=== PATIENT | female | born 1940 | race Caucasian/White ===

== ENCOUNTER 2022-07-22 13:12 | Outpatient (OUT) | payer MEDICARE, SELFPAY ==
--- NOTE | 2022-07-22 13:38 | P.HP_ITS ---
Consult Note: HPI Data of Consult Patient: known to practice within the last 3 years Consult date: 07/22/22 Requesting Physician: CLAUDIO WRIGHT NP Primary Care Provider: Luis Rogers MD Consult Narrative Reason for consult: low back pain Narrative: She is here for f/u to RFA [facility] nerve 06/22/22. She had 50% relief of pain with increased function continued today. No new sensorimotor or bowel or bladder issues. lumbar RFA 04/15 with continued relief. We discussed going to chiropractor for eval and tx. She does not have narcan at home. Rx given. [place] refilled. cc:: CC: CLAUDIO WRIGHT NP Review of Systems ROS Status of ROS 10 or more systems reviewed and unremarkable except as noted in history and below Exam Constitutional: Common normals: no apparent distress, average body habitus, oriented x3, no limitations, healthy appearing, alert and well nourished General appearance: cooperative, comfortable and well developed Orientation/consciousness: Yes awake, Yes oriented to person, Yes oriented to p lace and Yes oriented to time Other: right facial droop and extrmity weakness from previous stroke. walks with walker HENMT: Common normals: normocephalic and head/scalp atraumatic Nose: external nose normal Mouth: oral and palatal mucosa normal Respiratory: Common normals: normal respiratory effort, no retractions and no use of accessory muscles Effort & inspection: able to speak in complete sentences Back & Pelvis: Lumbar spine/lower back: ROM limited, pain with ROM and other soft tissue findings (positive marge bilat) Extremity: Common normals: normal to inspection and normal capillary refill Other: muscle strength 3/5 right LE, left 4/5, intact sensation bilat LE Skin: Common normals: no rashes or lesions noted Assessment and Plan Assessment and Plan (1) Neuritis: (2) Lumbar spondylosis: Plan narcan rx norco refill see chiropractor
== END 2022-07-22 13:13 ==
PROVIDERS: PCP Family Medicine; Visit Provider Nurse Practitioner
DX: M79.2 Neuralgia and neuritis, unspecified (principal); M47.816 Spondylosis without myelopathy or radiculopathy, lumbar region
CPT/HCPCS: G0463

== ENCOUNTER 2022-08-09 09:33 | Outpatient (OUT) | payer MEDICARE, SELFPAY ==
--- NOTE | 2022-08-09 09:50 | MR_ITS ---
[address] [address] Patient Name: KARINA CORMIER MRN: [id number] date: 1940 Sex: F Assigned Patient Location: MRI Current Patient Location: [place] Accession/Order Number: [id number] Exam Date: 08/09/2022 10:00 Report Date: 08/10/2022 06:49 At the request of: GALINA PALMER Procedure: MR lumbar spine wo con EXAMINATION: MR lumbar spine wo con HISTORY: Other forms of scoliosis, lumbar region M41.86 ; chronic back and leg pain COMPARISON: XR L-spine 07/16/2022, CT abdomen pelvis 04/04/2022 TECHNIQUE: A variety of imaging planes and parameters were utilized for visualization of suspected pathology. FINDINGS: For the purposes of numbering, sagittal T2 image # 7 extends from the T9 vertebral body superiorly to the S2 level inferiorly. PARASPINAL AREA: Numerous small and large hepatic lesions favoring cysts. Numerous small renal lesions bilaterally favoring cysts. BONES: Marked right convex curvature lumbar spine, and grade 1 right lateral abdomen and listhesis of L3 on 4. CORD/CAUDA EQUINA: Normal caliber, contour, and signal intensity. DISC LEVELS: T10-11: Moderate central canal and bilateral foramen narrowing secondary to large posterior projecting disc protrusion and moderate disc height reduction. T11-12: Marked central canal and right foramen narrowing. Moderate left foramen narrowing. Large right paracentral disc extrusion filling the right paracentral region and foramen and extending cephalad three fourths of the vertebral body height. Moderate marked disc height reduction and moderate degenerative facet arthropathy. 12-L1: Mild central canal, marked right, moderate left foramen narrowing. Moderate diffuse disc bulging predominantly into the right foramen. Moderate-marked disc height reduction. Mild degenerative facet arthropathy, right greater than left. L1-L2: Moderate marked central canal and bilateral foramen narrowing. Marked diffuse disc bulging with moderate disc at reduction. Moderate degenerative facet arthropathy bilaterally. L2-L3: Moderate central canal and bilateral foramen narrowing. Moderate diffuse disc bulging and moderate disc height reduction. Moderate degenerative facet arthropathy bilaterally. L3-L4: Mild central canal and right foramen narrowing. Moderate left foramen narrowing. Moderate diffuse disc bulging and disc height reduction. Moderate degenerative facet arthropathy bilaterally. L4-L5: Moderate central canal, marked right foramen, moderate left foramen narrowing. Marked diffuse disc bulging eccentric to the right, and minimal grade 1 anterolisthesis of L4 on 5. Marked degenerative facet arthropathy. L5-S1: No significant central canal or right foramen narrowing. Mild-moderate left foramen narrowing. Complete loss of the disc space no significant disc bulging. Moderate degenerative facet arthropathy. IMPRESSION: 1. Multilevel marked degenerative disc disease and facet arthropathy of the visible lower thoracic and lumbar spine resulting in moderate to marked central canal and foramen narrowing. 2. Marked dextroscoliosis of lumbar spine. Marked dextroscoliosis of lumbar spine. Electronically authenticated by: KRANTHI CONNORS Date: 08/10/2022 06:49
== END 2022-08-09 09:34 ==
LOC: MRI 09:37
PROVIDERS: PCP Family Medicine; Visit Provider Family Medicine
DX: M41.86 Other forms of scoliosis, lumbar region (principal); M51.34 Other intervertebral disc degeneration, thoracic region; M51.36 Other intervertebral disc degeneration, lumbar region
CPT/HCPCS: 72148

== ENCOUNTER 2022-08-09 13:04 | Observation (INO) | payer MEDICARE, SELFPAY ==
[2022-08-09] VITALS (16 sets, daily range): BP systolic 126–172; BP diastolic 69–79; PULSE 67–81; RESP 14–28; TEMP 36.6; O2SAT 95–99; BMI 31.2; BMI 70.6
[2022-08-09 13:21] LABS: Glucometer 127 mg/dL (74-106)
--- NOTE | 2022-08-09 13:24 | ED.GENADUL1 ---
HPI - General Adult General Chief complaint: Syncope Stated complaint: WEAKNESS Time Seen by Provider: 08/09/22 13:24 Source: patient, family and other Source information: EMS Mode of arrival: ambulance History of Present Illness HPI narrative: Patient is an 82-year-old female who presents to the emergency department for the evaluation of dizziness that began at home just prior to arrival. Patient states she drove herself to this hospital several hours ago to have an MRI performed of her back that was ordered three weeks ago by her PCP due to chronic back pain and degenerative disc disease. She states she drove herself home after the MRI and was sitting at her computer when she felt abrupt onset of vertigo and sensation of spinning. She has had vertigo in the past. She is not sure if this feels similar to previous. She has no complaint of headache, no chest pain or shortness of breath. She denies any recent illness, upper respiratory symptoms. She has no peripheral paresthesias. She states she feels generally weak and states at home before EMS arrived, she thinks she may have passed out several times while sitting in the chair. Patient has a history of previous stroke several years ago, she has residual facial drooping and dysarthria from this, no new symptoms of facial droop or dysarthria today. Related Data Home Medications Medication Instructions Recorded Confirmed B complex with vitamin cap PO DAILY 07/26/22 F-dxpuvynsa-duco capsule Buderer compound cream topical DAILY 07/26/22 acetaminophen 500 mg tablet 1,000 mg PO BID pain 07/26/22 08/09/22 (Tylenol Extra Strength) aspirin 81 mg tablet,delayed 81 mg PO DAILY 07/26/22 08/09/22 release blue emu topical DAILY 07/26/22 calcium carb-vit D3-minerals 600 1 tab PO DAILY 07/26/22 08/09/22 mg calcium-400 unit tablet capsaicin 0.025 % topical patch 1 patch topical DAILY pain 07/26/22 08/09/22 (Salonpas-Hot) carica papaya 1 tab PO DAILY 07/26/22 08/09/22 citalopram 10 mg tablet 10 mg PO DAILY 07/26/22 08/09/22 cyclobenzaprine 5 mg tablet 5 mg PO BID 07/26/22 08/09/22 diclofenac sodium 75 mg 75 mg PO Q12H 07/26/22 08/09/22 tablet,delayed release fexofenadine 180 mg tablet 180 mg PO DAILY 07/26/22 08/09/22 (Benita Allergy) flaxseed oil 1,000 mg capsule 1,000 mg PO DAILY 07/26/22 08/09/22 glucosamine 750 le-jckauw-onz 2-C tab PO 07/26/22 30 mg-D3 1,000 unit-maida 1 mg tablet (Mnnaogmntjk-Bxpubvjsbnx-NVJ + vitD) hydrocodone 5 mg-acetaminophen 325 1 tab PO BID 07/26/22 08/09/22 mg tablet isosorbide mononitrate 30 mg 30 mg PO DAILY 07/26/22 08/09/22 tablet,extended release 24 hr levothyroxine 75 mcg capsule 75 mcg PO DAILY 07/26/22 08/09/22 liothyronine 25 mcg tablet 25 mcg PO DAILY 07/26/22 08/09/22 (Cytomel) melatonin 3 mg capsule 3 mg PO DAILY 07/26/22 08/09/22 metoprolol succinate 50 mg 50 mg PO BID 07/26/22 08/09/22 tablet,extended release 24 hr multivitamin 1 tab PO DAILY 07/26/22 08/09/22 nitroglycerin 0.4 mg sublingual 0.4 mg sublingual Q5M 07/26/22 08/09/22 tablet Allergies Allergy/AdvReac Type Severity Reaction Status Date / Time Penicillins Allergy Severe Hives Verified 08/09/22 13:15 pregabalin [From Lyrica] Allergy Severe Dizziness Verified 08/09/22 13:15 propoxyphene [From Darvon] Allergy Severe Nausea Verified 08/09/22 13:15 fluconazole [From Diflucan] AdvReac Intermediate Verified 08/09/22 13:15 quinine [From Quinamm] AdvReac Mild Headache Verified 08/09/22 13:15 codeine Allergy Intermediate Dizziness Uncoded 08/09/22 13:15 decongest multi-action AdvReac Mild Uncoded 08/09/22 13:15 Review of Systems ROS Constitutional Denies: fever or chills Ears, nose, mouth, and throat Denies: throat pain or nasal discharge Cardiovascular Denies: chest pain Respiratory Denies: shortness of breath or cough Gastrointestinal Reports: nausea; Denies: vomiting Genitourinary Denies: painful urination Musculoskeletal Reports: back pain Neurological Denies: headache PFSH PFSH Social History Previous occupational history: Retired, , lives at home Occupational History Previous occupational history: Retired, , lives at home Exam Constitutional Vital Signs - 24 hr 08/09/22 13:11 08/09/22 13:20 08/09/22 13:30 Temperature 98 F Pulse Rate 67 67 Pulse Rate [Monitor] 67 Respiratory Rate 14 15 22 Blood Pressure Blood Pressure [Left Arm] 143/69 H Pulse Oximetry 99 98 99 Oxygen Delivery Method Room Air 08/09/22 13:48 08/09/22 13:50 08/09/22 13:59 Temperature Pulse Rate 68 72 74 Pulse Rate [Monitor] Respiratory Rate 14 19 22 Blood Pressure Blood Pressure [Left Arm] Pulse Oximetry 97 98 Oxygen Delivery Method 08/09/22 14:00 Temperature Pulse Rate 69 Pulse Rate [Monitor] Respiratory Rate 17 Blood Pressure 126/69 H Blood Pressure [Left Arm] Pulse Oximetry 98 Oxygen Delivery Method Documenting provider has reviewed patient's vital signs: yes Common normals: no apparent distress General appearance: cooperative Orientation/consciousness: Yes awake Other: Patient is slow to answer questions and must be redirected several times but is able to answer questions appropriately when prompted, chronic right-sided facial drooping noted with minimal dysarthria from previous stroke HENWA General ear: other (Bilateral tympanic membranes are clear) Respiratory Common normals: normal respiratory effort Auscultation: clear to auscultation bilaterally Cardio Common normals: regular rate and regular rhythm GI Common normals: non-tender Palpation: soft Extremity Common normals: normal to inspection Neuro Other: Patient is awake and alert to baseline with chronic facial drooping, no new focal neuro deficits noted. Generally weak although after multiple prompts is able to lift her arms with normal dorsiflexion and plantarflexion of the feet Course Reevaluation(s) Reevaluation #1: Discussed admission with Dr. Rogers Time: 16:22 Vital Signs Vital signs: Vital Signs Temperature 98 F 08/09/22 13:11 Pulse Rate 67 08/09/22 13:11 Respiratory Rate 14 08/09/22 13:11 Blood Pressure 143/69 H 08/09/22 13:11 Pulse Oximetry 99 08/09/22 13:11 Oxygen Delivery Method Room Air 08/09/22 13:11 Temperature 98 F 08/09/22 13:11 Pulse Rate 69 08/09/22 14:00 Respiratory Rate 17 08/09/22 14:00 Blood Pressure 126/69 H 08/09/22 14:00 Pulse Oximetry 98 08/09/22 14:00 Oxygen Delivery Method Room Air 08/09/22 13:11 Medical Decision Making MDM Narrative Medical decision making narrative: Patient was treated with gentle IV fluids, Zofran, meclizine. The remainder of her lab studies show hyponatremia, ketones in her urine and otherwise stable labs. Chest x-ray, CT of the head with stroke protocol are unremarkable. Urine specimen with no evidence of urinary tract infection. Patient's thyroid-stimulating hormone is low, further evaluation per her PCP. She was admitted because of the history of syncope and dizziness, based on her age and generalized weakness we will admit to Dr. Rogers with telemetry on MedSurg for observation. Stable at this time. Medical Records Medical records reviewed: Yes I reviewed the patient's medical records Lab Data Lab results reviewed: Yes I reviewed the patient's lab results Labs: Lab Results 08/09/22 08/09/22 08/09/22 Range/Units 13:18 14:10 15:45 WBC 7.3 (4.0-11.0) 10^3/uL RBC 4.12 L (4.20-5.40) 10^6/uL Hgb 12.6 (12.0-16.0) g/dL Hct 37.8 (36.0-48.0) % MCV 91.7 (81.0-99.0) fL MCH 30.6 (26.7-34.0) pg MCHC 33.3 (29.9-35.2) g/dL RDW 12.9 (11.0-15.0) % Plt Count 276 (150-450) 10^3/uL MPV 9.2 L (9.5-13.5) fL Neut % (Auto) 81.5 H (43.0-75.0) % Lymph % (Auto) 8.7 L (20.5-60.0) % Meagher % (Auto) 8.8 (1.7-12.0) % Eos % (Auto) 0.4 L (0.9-7.0) % Baso % (Auto) 0.3 (0.2-2.0) % Neut # (Auto) 5.9 (1.4-6.5) 10^3/uL Lymph # (Auto) 0.6 L (1.2-3.8) 10^3/uL Meagher # (Auto) 0.6 (0.3-0.8) 10^3/uL Eos # (Auto) 0.0 (0.0-0.7) 10^3/uL Baso # (Auto) 0.0 (0.0-0.1) 10^3/uL Abs Immat Gran (auto) 0.02 (0.00-0.03) 10^3/uL Imm/Tot Granulo (auto) 0.3 (0.0-0.5) % Sodium 132 L (136-145) mmol/L Potassium 4.1 (3.5-5.1) mmol/L Chloride 97 L (98-107) mmol/L Carbon Dioxide 26.3 (21.0-32.0) mmol/L Anion Gap 12.8 BUN 27.0 H (7.0-18.0) mg/dL Creatinine 1.16 H (0.55-1.02) mg/dL Est GFR ( Amer) 54 L (>=60) Est GFR (Non-Af Amer) 45 L (>=60) BUN/Creatinine Ratio 23.3 Glucose 134 H (74-106) mg/dL Lactate 1.9 (0.4-2.0) mmol/L Calcium 9.5 (8.5-10.1) mg/dL Total Bilirubin 0.5 (0.2-1.0) mg/dL AST 42 H (15-37) U/L ALT 48 (14-59) U/L Alkaline Phosphatase 76 (46-116) U/L Troponin I High Sens 5.8 (4.0-51.3) pg/mL Total Protein 6.9 (6.4-8.2) g/dL Albumin 3.6 (3.4-5.0) g/dL Globulin 3.3 g/dL Albumin/Globulin Ratio 1.1 TSH 0.031 L (0.358-3.740) uIU/mL Urine Color Lt. yellow (YELLOW) Urine Clarity Clear (CLEAR) Urine pH 8.0 (5.0-9.0) Ur Specific [place] 1.015 (1.005-1.025) Urine Protein Negative (NEG/TRACE) mg/dL Urine Glucose (UA) Negative (NEGATIVE) mg/dL Urine Ketones 15 A (NEGATIVE) mg/dL Urine Occult Blood Trace-i (NEGATIVE) Urine Nitrite Negative (NEGATIVE) Urine Bilirubin Negative (NEGATIVE) Urine Urobilinogen 0.2 (0.2-1.0) EU/dL Ur Leukocyte Esterase Negative (NEGATIVE) Urine RBC (0-2) #/HPF Urine WBC (NONE SEEN) #/HPF Ur Squamous Epith Cells (NONE/RARE) #/LPF Urine Crystals (None Seen) #/HPF Urine Bacteria (NONE SEEN) #/HPF Urine Casts (NONE SEEN) #/LPF Urine Mucus (NONE SEEN) Ur Culture Indicated? POC Glucose 127 H (74-106) mg/dL 08/09/22 Range/Units 16:04 WBC (4.0-11.0) 10^3/uL RBC (4.20-5.40) 10^6/uL Hgb (12.0-16.0) g/dL Hct (36.0-48.0) % MCV (81.0-99.0) fL MCH (26.7-34.0) pg MCHC (29.9-35.2) g/dL RDW (11.0-15.0) % Plt Count (150-450) 10^3/uL MPV (9.5-13.5) fL Neut % (Auto) (43.0-75.0) % Lymph % (Auto) (20.5-60.0) % Meagher % (Auto) (1.7-12.0) % Eos % (Auto) (0.9-7.0) % Baso % (Auto) (0.2-2.0) % Neut # (Auto) (1.4-6.5) 10^3/uL Lymph # (Auto) (1.2-3.8) 10^3/uL Meagher # (Auto) (0.3-0.8) 10^3/uL Eos # (Auto) (0.0-0.7) 10^3/uL Baso # (Auto) (0.0-0.1) 10^3/uL Abs Immat Gran (auto) (0.00-0.03) 10^3/uL Imm/Tot Granulo (auto) (0.0-0.5) % Sodium (136-145) mmol/L Potassium (3.5-5.1) mmol/L Chloride (98-107) mmol/L Carbon Dioxide (21.0-32.0) mmol/L Anion Gap BUN (7.0-18.0) mg/dL Creatinine (0.55-1.02) mg/dL Est GFR ( Amer) (>=60) Est GFR (Non-Af Amer) (>=60) BUN/Creatinine Ratio Glucose (74-106) mg/dL Lactate (0.4-2.0) mmol/L Calcium (8.5-10.1) mg/dL Total Bilirubin (0.2-1.0) mg/dL AST (15-37) U/L ALT (14-59) U/L Alkaline Phosphatase (46-116) U/L Troponin I High Sens (4.0-51.3) pg/mL Total Protein (6.4-8.2) g/dL Albumin (3.4-5.0) g/dL Globulin g/dL Albumin/Globulin Ratio TSH (0.358-3.740) uIU/mL Urine Color (YELLOW) Urine Clarity (CLEAR) Urine pH (5.0-9.0) Ur Specific [place] (1.005-1.025) Urine Protein (NEG/TRACE) mg/dL Urine Glucose (UA) (NEGATIVE) mg/dL Urine Ketones (NEGATIVE) mg/dL Urine Occult Blood (NEGATIVE) Urine Nitrite (NEGATIVE) Urine Bilirubin (NEGATIVE) Urine Urobilinogen (0.2-1.0) EU/dL Ur Leukocyte Esterase (NEGATIVE) Urine RBC 5-10 A (0-2) #/HPF Urine WBC None seen (NONE SEEN) #/HPF Ur Squamous Epith Cells Few A (NONE/RARE) #/LPF Urine Crystals None seen (None Seen) #/HPF Urine Bacteria None seen (NONE SEEN) #/HPF Urine Casts None seen (NONE SEEN) #/LPF Urine Mucus None seen (NONE SEEN) Ur Culture Indicated? No POC Glucose (74-106) mg/dL Imaging Data Chest x-ray: Attestation: I have reviewed the pertinent imaging results. Radiologist's impression: Procedure: XR chest 1V EXAMINATION: XR chest 1V HISTORY: Dizziness COMPARISON: No relevant comparison available. TECHNIQUE: AP portable FINDINGS: LUNGS: No significant pulmonary parenchymal abnormalities. VASCULATURE: No increased pulmonary vasculature. PLEURA: No pneumothorax, effusion, or pleural thickening. CARDIAC: No cardiomegaly or cardiac silhouette abnormality. MEDIASTINUM: No visible mass or adenopathy. Aortic atherosclerosis BONES: No fracture or visible bone lesion. OTHER: Negative. IMPRESSION: No acute cardiopulmonary process Electronically authenticated by: HERMES MENDOZA Date: 08/09/2022 14:22 CT scan - head: Attestation: I have reviewed the pertinent imaging results. Radiologist's impression: Procedure: CT stroke head/brain wo con EXAMINATION: CT stroke head/brain wo con HISTORY: Dizziness COMPARISON: No relevant comparison available. TECHNIQUE: Axial CT images were obtained without IV contrast. Dose reduction techniques were achieved by using automated exposure control and/or adjustment of mA and/or kV according to patient size and/or use of iterative reconstruction technique. FINDINGS: BRAIN: Mild generalized edema. Mild white matter hypoattenuation, chronic small vessel ischemic changes are favored. No acute parenchymal hemorrhage mass or attenuation abnormality CSF SPACES: No hydrocephalus, subarachnoid hemorrhage, or mass. Appropriate for age. SKULL: No fracture, mass, or other significant visible lesion. SINUSES: No significant mucosal thickening or fluid on the limited views. ORBITS: No appreciable abnormality on the limited views. OTHER: Negative IMPRESSION: Mild atrophy and white matter disease. Chronic changes are favored. Electronically authenticated by: HERMES MENDOZA Date: 08/09/2022 14:18 ECG Data Attestation: I personally reviewed and interpreted this ECG as follows: (Normal sinus rhythm at a rate of [address] elevation or ectopy. EKG reviewed by attending physician) Discharge Plan Discharge Chief Complaint: Syncope Clinical Impression: Dizziness, Generalized weakness, Syncope, Acute hyponatremia Patient Disposition: Admitted as Observation Time of Disposition Decision: 16:24 Condition: Fair
--- NOTE | 2022-08-09 13:25 | ECG_ITS ---
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
--- NOTE | 2022-08-09 13:50 | CT_ITS ---
[address] [address] Patient Name: KARINA CORMIER MRN: [id number] date: 1940 Sex: F Assigned Patient Location: ED.MAIN Current Patient Location: Accession/Order Number: [id number] Exam Date: 08/09/2022 13:40 Report Date: 08/09/2022 14:18 At the request of: DANAE BECKWITH Procedure: CT stroke head/brain wo con EXAMINATION: CT stroke head/brain wo con HISTORY: Dizziness COMPARISON: No relevant comparison available. TECHNIQUE: Axial CT images were obtained without IV contrast. Dose reduction techniques were achieved by using automated exposure control and/or adjustment of mA and/or kV according to patient size and/or use of iterative reconstruction technique. FINDINGS: BRAIN: Mild generalized edema. Mild white matter hypoattenuation, chronic small vessel ischemic changes are favored. No acute parenchymal hemorrhage mass or attenuation abnormality CSF SPACES: No hydrocephalus, subarachnoid hemorrhage, or mass. Appropriate for age. SKULL: No fracture, mass, or other significant visible lesion. SINUSES: No significant mucosal thickening or fluid on the limited views. ORBITS: No appreciable abnormality on the limited views. OTHER: Negative IMPRESSION: Mild atrophy and white matter disease. Chronic changes are favored. Electronically authenticated by: HERMES MENDOZA Date: 08/09/2022 14:18
--- NOTE | 2022-08-09 13:50 | XR_ITS ---
The [address] [address] Patient Name: KARINA CORMIER MRN: [id number] date: 1940 Sex: F Assigned Patient Location: ED.MAIN Current Patient Location: ER Accession/Order Number: [id number] Exam Date: 08/09/2022 13:40 Report Date: 08/09/2022 14:22 At the request of: DANAE BECKWITH Procedure: XR chest 1V EXAMINATION: XR chest 1V HISTORY: Dizziness COMPARISON: No relevant comparison available. TECHNIQUE: AP portable FINDINGS: LUNGS: No significant pulmonary parenchymal abnormalities. VASCULATURE: No increased pulmonary vasculature. PLEURA: No pneumothorax, effusion, or pleural thickening. CARDIAC: No cardiomegaly or cardiac silhouette abnormality. MEDIASTINUM: No visible mass or adenopathy. Aortic atherosclerosis BONES: No fracture or visible bone lesion. OTHER: Negative. IMPRESSION: No acute cardiopulmonary process Electronically authenticated by: HERMES MENDOZA Date: 08/09/2022 14:22
[2022-08-09] MEDS: ONDANSETRON PF 4 MG/2 ML VIAL IV (13:56)
[2022-08-09] MEDS: MECLIZINE HCL 12.5 MG TABLET 25 MG PO (13:56)
[2022-08-09 14:22] LABS: Basophils Percent Auto 0.3 % (0.2-2.0); Eosinophils Percent Auto 0.4 % (0.9-7.0); Hematocrit 37.8 % (36.0-48.0); Hemoglobin 12.6 g/dL (12.0-16.0); Immature Granulocytes Abs Auto 0.02 10^3/uL (0.00-0.03); Immature Granulocytes Pct Auto 0.3 % (0.0-0.5); Lymphocytes Absolute Auto 0.6 10^3/uL (1.2-3.8); Lymphocytes Percent Auto 8.7 % (20.5-60.0); Mean Corpuscular HGB Conc 33.3 g/dL (29.9-35.2); Mean Corpuscular Hemoglobin 30.6 pg (26.7-34.0); Mean Corpuscular Volume 91.7 fL (81.0-99.0); Mean Platelet Volume 9.2 fL (9.5-13.5); Monocytes Absolute Auto 0.6 10^3/uL (0.3-0.8); Monocytes Percent Auto 8.8 % (1.7-12.0); Neutrophils Absolute Auto 5.9 10^3/uL (1.4-6.5); Neutrophils Percent Auto 81.5 % (43.0-75.0); Platelet Count 276 10^3/uL (150-450); Red Blood Count 4.12 10^6/uL (4.20-5.40); Red Cell Distribution Width 12.9 % (11.0-15.0); White Blood Count 7.3 10^3/uL (4.0-11.0)
[2022-08-09 14:55] LABS: Alanine Aminotransferase 48 U/L (14-59); Anion Gap 12.8; Aspartate Amino Transferase 42 U/L (15-37); BUN Creatinine Ratio 23.3; Bilirubin Total 0.5 mg/dL (0.2-1.0); Calcium 9.5 mg/dL (8.5-10.1); Carbon Dioxide 26.3 mmol/L (21.0-32.0); Chloride 97 mmol/L (98-107); Estimated GFR (African America 54 (>=60); Estimated GFR (Non-African Ame 45 (>=60); Glucose 134 mg/dL (74-106); Potassium 4.1 mmol/L (3.5-5.1); Sodium 132 mmol/L (136-145)
[2022-08-09 14:56] LABS: Albumin Globulin Ratio 1.1; Albumin Level 3.6 g/dL (3.4-5.0); Alkaline Phosphatase 76 U/L (46-116); Globulin 3.3 g/dL; Thyroid Stimulating Hormone 0.031 uIU/mL (0.358-3.740); Total Protein 6.9 g/dL (6.4-8.2); Troponin I High Sensitivity 5.8 pg/mL (4.0-51.3)
[2022-08-09 15:21] LABS: Lactate/Lactic Acid 1.9 mmol/L (0.4-2.0)
[2022-08-09] MEDS: 0.9 % SODIUM CHLORIDE 1,000 ML 500 ML IV (15:40)
[2022-08-09 16:04] LABS: Bilirubin Urine NEGATIVE (NEGATIVE); Blood Urine TRACE-I (NEGATIVE); Clarity Urine CLEAR (CLEAR); Color Urine LT. YELLOW (YELLOW); Glucose Urine UA NEGATIVE (NEGATIVE); Ketones Urine 15 mg/dL (NEGATIVE); Leukocyte Esterase Urine NEGATIVE (NEGATIVE); Nitrite Urine NEGATIVE (NEGATIVE); Protein Urine NEGATIVE (NEG/TRACE); Specific Gravity Urine 1.015 (1.005-1.025); Urine Microscopic Indicated YES; Urobilinogen Urine 0.2 EU/dL (0.2-1.0)
[2022-08-09 16:09] LABS: Bacteria Urine NONE SEEN #/HPF (NONE SEEN); Cast Seen? NONE SEEN #/LPF (NONE SEEN); Crystals Seen? None Seen #/HPF (None Seen); Mucus Urine NONE SEEN (NONE SEEN); Squamous Epithelial Cell Urine FEW #/LPF (NONE/RARE); Urine Culture Indicated NO; WBC Urine NONE SEEN #/HPF (NONE SEEN)
[2022-08-09] MEDS: 0.9 % SODIUM CHLORIDE 1,000 ML 125 ML IV (22:22)
[2022-08-09] MEDS: CIPROFLOXACIN IN 5 % DEXTROSE 400 MG/200 ML PIGGYBACK 200 MG IV (22:26)
[2022-08-09] MEDS: HYDROCODONE/ACETAMINOPHEN 5-325 MG TABLET 1 TAB PO (22:31)
[2022-08-09] MEDS: ACETAMINOPHEN 500 MG TABLET 1000 MG PO (22:31)
[2022-08-09] MEDS: CYCLOBENZAPRINE HCL 10 MG TABLET 5 MG PO (22:33)
[2022-08-09] MEDS: METOPROLOL SUCCINATE 50 MG TAB.ER.24H PO (22:33)
[2022-08-09] MEDS: DICLOFENAC SODIUM 25 MG TABLET.DR 75 MG PO (22:34)
[2022-08-10] VITALS (8 sets, daily range): BP systolic 151; BP diastolic 77; PULSE 68–79; RESP 20; TEMP 36.1; O2SAT 96
[2022-08-10 04:59] LABS: Basophils Percent Auto 0.5 % (0.2-2.0); Eosinophils Absolute Auto 0.1 10^3/uL (0.0-0.7); Eosinophils Percent Auto 1.4 % (0.9-7.0); Hematocrit 33.5 % (36.0-48.0); Hemoglobin 11.1 g/dL (12.0-16.0); Immature Granulocytes Abs Auto 0.01 10^3/uL (0.00-0.03); Immature Granulocytes Pct Auto 0.2 % (0.0-0.5); Lymphocytes Absolute Auto 0.7 10^3/uL (1.2-3.8); Lymphocytes Percent Auto 17.1 % (20.5-60.0); Mean Corpuscular HGB Conc 33.1 g/dL (29.9-35.2); Mean Corpuscular Hemoglobin 30.7 pg (26.7-34.0); Mean Corpuscular Volume 92.8 fL (81.0-99.0); Mean Platelet Volume 8.9 fL (9.5-13.5); Monocytes Absolute Auto 0.5 10^3/uL (0.3-0.8); Neutrophils Percent Auto 68.8 % (43.0-75.0); Platelet Count 240 10^3/uL (150-450); Red Blood Count 3.61 10^6/uL (4.20-5.40); White Blood Count 4.3 10^3/uL (4.0-11.0)
[2022-08-10 05:25] LABS: Alanine Aminotransferase 37 U/L (14-59); Albumin Level 2.9 g/dL (3.4-5.0); Alkaline Phosphatase 62 U/L (46-116); Anion Gap 10.8; Aspartate Amino Transferase 24 U/L (15-37); Bilirubin Total 0.4 mg/dL (0.2-1.0); Calcium 8.6 mg/dL (8.5-10.1); Carbon Dioxide 26.9 mmol/L (21.0-32.0); Chloride 101 mmol/L (98-107); Estimated GFR (African America 57 (>=60); Estimated GFR (Non-African Ame 47 (>=60); Globulin 2.9 g/dL; Glucose 93 mg/dL (74-106); Magnesium 1.9 mg/dL (1.8-2.4); Potassium 3.7 mmol/L (3.5-5.1); Sodium 135 mmol/L (136-145); Total Protein 5.8 g/dL (6.4-8.2)
[2022-08-10] MEDS: 0.9 % SODIUM CHLORIDE 1,000 ML 125 ML IV (06:53)
--- NOTE | 2022-08-10 07:04 | CA_ITS ---
Patient: KARINA CORMIER Exam Date: 08/10/2022 : 1940 Gender:F Ordering : DR Luis Rogers . Admission #: [id number] Family : Order #: [id number] CLICK HERE TO VIEW EXAM ECHOCARDIOGRAM REPORT PROCEDURE: CA ECHO DOPPLER COMPLETE INDICATIONS: TIA with vertigo COMPARISON: None. DESCRIPTION: COMPLETE ECHOCARDIOGRAM Real-time transthoracic echocardiography with 2D, M-mode, spectral and color flow Doppler performed. QUALITY: Technical quality was good. LEFT VENTRICLE: Normal chamber size. Borderline left ventricular hypertrophy. LV EF: Global left ventricular systolic function is normal. Calculated left ventricular ejection fraction is 67%. DIASTOLIC: Diastolic function is indeterminate. ATRIAL SEPTUM: Inadequately seen. LEFT ATRIUM: Severe dilatation. RIGHT ATRIUM: Mild dilatation. RIGHT VENTRICLE: Normal chamber size. Normal right ventricular systolic function. TRICUSPID VALVE: Normal mobility and thickness. Mild regurgitation. Mild pulmonary hypertension. RVSP 37mmHg MITRAL VALVE: Normal mobility and thickness. No evidence of mitral valve stenosis. There is no mitral annular calcification. Mild to moderate mitral regurgitation. AORTIC VALVE: Normal trileaflet appearance. Thickened aortic valve. Normal leaflet mobility. No evidence of aortic valve stenosis. No aortic regurgitation. AORTIC ROOT: Normal diameter and appearance. PULMONIC VALVE: Normal thickness and mobility. No stenosis. Trivial regurgitation. PERICARDIUM: No evidence of pericardial effusion. IVC: Collapses with inspirations. Moderately dilated measuring 2.5cm. CONCLUSION: Global left ventricular systolic function is normal; visually estimated ejection fraction is 60 to 65%. Diastolic function is indeterminate. Biatrial enlargement. The right ventricle is normal in size and systolic function. Mild tricuspid regurgitation. Mildly elevated right-sided pressures. Mild to moderate mitral regurgitation. Adult Echocardiography Procedure Report Left Ventricle LVEDD (3.7 - 5.6 cm): 4.32 cm LVESD (2.2 - 4.0 cm): 2.81 cm LVIVS thickness (0.6 - 1.2 cm): 1.15 cm LVPW thickness (0.5 - 1.0 cm): 9.75 mm LVOT Max Gradient: 4 mm[Hg] Peak Velocity (LVOT): 96.30 cm/s Mean Velocity (LVOT): 63.80 cm/s LVOT Diameter 1.90 cm Left Ventricular Ejection Fraction: 64.50 % Left Atrium LA Volume Index (2D A2C): 68980 mm3 Left Atrium Systolic Dimension: 2.90 cm Mitral Valve MV E to A Ratio: 0.80 Mitral Valve A-Wave Peak Velocity: 110.00 cm/s Mitral Valve E-Wave Peak Velocity: 92.30 cm/s Right Ventricle Aorta AO Root Diam: 3.10 cm Aortic Valve AoV Area (Peak Duncan): 2.19 cm2 AoV Area (VTI): 2.24 cm2 Peak Velocity(Antegrade Flow): 125.00 cm/s Peak Gradient(Antegrade Flow): 6 mm[Hg] Mean Velocity(Antegrade Flow): 86.00 cm/s Mean Gradient(Antegrade Flow): 3 mm[Hg] Velocity Time Integral: 29.50 cm Tricuspid Valve Peak Velocity (Regurgitant Flow): 270.00 cm/s Peak Velocity: 39.50 cm/s Pulmonic Valve Peak Velocity: 99.10 cm/s, 88.20 cm/s Peak Gradient: 4 mm[Hg] Right Atrium Dictated by: Raz Luis M.D. on 08/11/2022 at 13:09 Approved by: Raz Luis M.D. on 08/11/2022 at 13:13
--- NOTE | 2022-08-10 07:04 | CT_ITS ---
[address] [address] Patient Name: KARINA CORMIER MRN: [id number] date: 1940 Sex: F Assigned Patient Location: [place] Current Patient Location: [place] Accession/Order Number: [id number] Exam Date: 08/10/2022 08:32 Report Date: 08/10/2022 09:48 At the request of: GALINA PALMER Procedure: CT angio neck EXAM: CT angio neck, CT angio head COMPARISON: None. CLINICAL HISTORY: Transient ischemic event. Syncope TECHNIQUE: Following the bolus administration of 98 mL Omnipaque 350 is IV contrast, thin helical axial images using a dual-energy acquisition was obtained from the aortic arch to the vertex. Automated dose reduction was utilized. Thin multiplanar reconstructions of the brain were obtained in all three planes. 2-D and 3-D reformations were created on an independent workstation. FINDINGS: Aortic arch and carotids: Three-vessel aortic arch without significant great vessel stenosis The right vertebral artery dominant. The common carotid arteries are patent. There is calcified plaque at the internal carotid arteries resulting in 50% stenosis. The distal internal carotid arteries are unremarkable. Intracranial circulation: The vertebral basilar artery system is developmentally diminutive. There are prominent bilateral posterior communicating arteries. There is mild plaque of the cavernous carotid arteries. The anterior, middle, and posterior cerebral arteries are patent. There is no high-grade stenosis nor large vessel occlusion. Postcontrast, there is no abnormal intracranial enhancement. There is moderate sphenoid sinus mucosal disease. There is no mucosal abnormality. There is no concerning adenopathy. Tiny right thyroid nodule. Moderate spondylitic changes of the cervical spine IMPRESSION: THREE-VESSEL ARCH WITHOUT SIGNIFICANT GREAT VESSEL STENOSIS. DOMINANT RIGHT VERTEBRAL ARTERY. DIMINUTIVE VERTEBROBASILAR SYSTEM. CALCIFIED PLAQUE CAROTID BIFURCATIONS RESULTING IN 50% INTERNAL CAROTID ARTERY STENOSES. NO SIGNIFICANT INTRACRANIAL STENOSIS NOR LARGE VESSEL OCCLUSION. Any above stenosis measurements were obtained using NASCET criteria. Electronically authenticated by: CORBIN BECKWITH Date: 08/10/2022 09:48
--- NOTE | 2022-08-10 07:04 | CA_ITS ---
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1940 Requested By: GALINA PALMER Order Number: [id number] Reading MD: STEVE WAY Interpretive Statements Predominant rhythm is sinus with average rate of 76 bpm Tachycardia - max rate of 164 bpm - 12 episodes of PSVT w/ longest duration of 33 beats - longest episode of 29min 19sec with rate of 109-119 bpm Bradycardia - min rate of 54 bpm - longest episode of 18min 49sec with rate of 54-57 bpm Ventricular ectopy - 275 total (<1%) - 269 PVC - 6 couplets Patient triggered events: 1 - associated with fatigue - associated with NSR Impression: Predominant rhythm is sinus with average rate of 76 bpm Fastest rate of 164 bpm and slowest rate of 54 bpm 269 PVC, 6 couplets No pauses or blocks No atrial fib/flutter Electronically Signed On 09-22-2022 21:26:[address]
--- NOTE | 2022-08-10 07:04 | CT_ITS ---
[address] [address] Patient Name: KARINA CORMIER MRN: [id number] date: 1940 Sex: F Assigned Patient Location: MS Current Patient Location: [place] Accession/Order Number: [id number] Exam Date: 08/10/2022 08:32 Report Date: 08/10/2022 09:48 At the request of: GALINA PALMER Procedure: CT angio head EXAM: CT angio neck, CT angio head COMPARISON: None. CLINICAL HISTORY: Transient ischemic event. Syncope TECHNIQUE: Following the bolus administration of 98 mL Omnipaque 350 is IV contrast, thin helical axial images using a dual-energy acquisition was obtained from the aortic arch to the vertex. Automated dose reduction was utilized. Thin multiplanar reconstructions of the brain were obtained in all three planes. 2-D and 3-D reformations were created on an independent workstation. FINDINGS: Aortic arch and carotids: Three-vessel aortic arch without significant great vessel stenosis The right vertebral artery dominant. The common carotid arteries are patent. There is calcified plaque at the internal carotid arteries resulting in 50% stenosis. The distal internal carotid arteries are unremarkable. Intracranial circulation: The vertebral basilar artery system is developmentally diminutive. There are prominent bilateral posterior communicating arteries. There is mild plaque of the cavernous carotid arteries. The anterior, middle, and posterior cerebral arteries are patent. There is no high-grade stenosis nor large vessel occlusion. Postcontrast, there is no abnormal intracranial enhancement. There is moderate sphenoid sinus mucosal disease. There is no mucosal abnormality. There is no concerning adenopathy. Tiny right thyroid nodule. Moderate spondylitic changes of the cervical spine IMPRESSION: THREE-VESSEL ARCH WITHOUT SIGNIFICANT GREAT VESSEL STENOSIS. DOMINANT RIGHT VERTEBRAL ARTERY. DIMINUTIVE VERTEBROBASILAR SYSTEM. CALCIFIED PLAQUE CAROTID BIFURCATIONS RESULTING IN 50% INTERNAL CAROTID ARTERY STENOSES. NO SIGNIFICANT INTRACRANIAL STENOSIS NOR LARGE VESSEL OCCLUSION. Any above stenosis measurements were obtained using NASCET criteria. Electronically authenticated by: CORBIN BECKWITH Date: 08/10/2022 09:48
--- NOTE | 2022-08-10 07:12 | P.HP_ITS ---
H&P: HPI History of Present Illness Chief complaint: WEAKNESS, DIZZINESS, SYNCOPY Narrative: Patient with acute onset of vertigo, she has had little episodes since that in the past but not as severe as previous, patient presented to emergency room due to the severity of the symptoms. No focal weakness but she did states she has some difficulty with her speech at the time of the incident. Review of Systems ROS Status of ROS 10 or more systems reviewed and unremarkable except as noted in history and below PFSH PFSH Social History Previous occupational history: Retired, , lives at home Meds Home Medications and Allergies Home Medications Medication Instructions Recorded Confirmed Type B complex with vitamin 1 cap PO DAILY 07/26/22 08/09/22 History T-jhqteeqnj-jehm capsule Buderer compound cream topical DAILY 07/26/22 History acetaminophen 500 mg tablet 1,000 mg PO BID pain 07/26/22 08/09/22 History (Tylenol Extra Strength) aspirin 81 mg tablet,delayed 81 mg PO DAILY 07/26/22 08/09/22 History release blue emu 1 g topical DAILY 07/26/22 08/09/22 History calcium carb-vit D3-minerals 600 1 tab PO DAILY 07/26/22 08/09/22 History mg calcium-400 unit tablet capsaicin 0.025 % topical patch 1 patch topical DAILY pain 07/26/22 08/09/22 History (Salonpas-Hot) carica papaya 1 tab PO DAILY 07/26/22 08/09/22 History citalopram 10 mg tablet 10 mg PO DAILY 07/26/22 08/09/22 History cyclobenzaprine 5 mg tablet 5 mg PO BEDTIME PRN muscle spasm 07/26/22 08/09/22 History diclofenac sodium 75 mg 75 mg PO Q12H 07/26/22 08/09/22 History tablet,delayed release fexofenadine 180 mg tablet 180 mg PO DAILY 07/26/22 08/09/22 History (Benita Allergy) flaxseed oil 1,000 mg capsule 1,000 mg PO DAILY 07/26/22 08/09/22 History glucosamine 750 ex-hgtsrm-uxq 2-C 1 tab PO DAILY 07/26/22 08/09/22 History 30 mg-D3 1,000 unit-maida 1 mg tablet (Bqrkcqrxrtw-Dobtxmsvgui-TTS + vitD) hydrocodone 5 mg-acetaminophen 325 1 tab PO BID PRN pain 07/26/22 08/09/22 History mg tablet isosorbide mononitrate 30 mg 30 mg PO DAILY 07/26/22 08/09/22 History tablet,extended release 24 hr levothyroxine 75 mcg capsule 75 mcg PO DAILY 07/26/22 08/09/22 History liothyronine 25 mcg tablet 25 mcg PO DAILY 07/26/22 08/09/22 History (Cytomel) melatonin 3 mg capsule 3 mg PO DAILY 07/26/22 08/09/22 History metoprolol succinate 50 mg 50 mg PO BID 07/26/22 08/09/22 History tablet,extended release 24 hr multivitamin 1 tab PO DAILY 07/26/22 08/09/22 History nitroglycerin 0.4 mg sublingual 0.4 mg sublingual Q5M 07/26/22 08/09/22 History tablet lorazepam 0.5 mg tablet (Ativan) 0.5 mg PO Q8H PRN anxiety 08/09/22 08/09/22 History Allergies Allergy/AdvReac Type Severity Reaction Status Date / Time Penicillins Allergy Severe Hives Verified 08/09/22 13:15 pregabalin [From Lyrica] Allergy Severe Dizziness Verified 08/09/22 13:15 propoxyphene [From Darvon] Allergy Severe Nausea Verified 08/09/22 13:15 fluconazole [From Diflucan] AdvReac Intermediate Verified 08/09/22 13:15 quinine [From Quinamm] AdvReac Mild Headache Verified 08/09/22 13:15 codeine Allergy Intermediate Dizziness Uncoded 08/09/22 13:15 decongest multi-action AdvReac Mild Uncoded 08/09/22 13:15 Exam Constitutional Vital Signs - 24 hr 08/09/22 13:11 08/09/22 13:20 08/09/22 13:30 Temperature 98 F Pulse Rate 67 67 Pulse Rate [Monitor] 67 Respiratory Rate 14 15 22 Blood Pressure Blood Pressure [Left Arm] 143/69 H Pulse Oximetry 99 98 99 Oxygen Delivery Method Room Air Oxygen Delivery Flow Rate 08/09/22 13:48 08/09/22 13:50 08/09/22 13:59 Temperature Pulse Rate 68 72 74 Pulse Rate [Monitor] Respiratory Rate 14 19 22 Blood Pressure Blood Pressure [Left Arm] Pulse Oximetry 97 98 Oxygen Delivery Method Oxygen Delivery Flow Rate 08/09/22 14:00 08/09/22 15:00 08/09/22 15:30 Temperature Pulse Rate 69 81 76 Pulse Rate [Monitor] Respiratory Rate 17 28 H 19 Blood Pressure 126/69 H 150/77 H 143/76 H Blood Pressure [Left Arm] Pulse Oximetry 98 95 Oxygen Delivery Method Oxygen Delivery Flow Rate 08/09/22 16:00 08/09/22 16:30 08/09/22 16:59 Temperature Pulse Rate 68 Pulse Rate [Monitor] 76 Respiratory Rate 14 16 Blood Pressure 145/76 H 135/74 H Blood Pressure [Left Arm] Pulse Oximetry 98 Oxygen Delivery Method Nasal Cannula Oxygen Delivery Flow Rate 2 08/09/22 16:59 08/09/22 19:37 08/09/22 20:00 Temperature Pulse Rate 78 Pulse Rate [Monitor] 76 76 Respiratory Rate 16 Blood Pressure Blood Pressure [Left Arm] Pulse Oximetry Oxygen Delivery Method Oxygen Delivery Flow Rate 08/09/22 21:57 08/09/22 21:58 08/09/22 20:00 Temperature 98 F Pulse Rate 79 80 Pulse Rate [Monitor] 76 Respiratory Rate 18 18 Blood Pressure Blood Pressure [Left Arm] 172/79 H Pulse Oximetry 95 Oxygen Delivery Method Room Air Oxygen Delivery Flow Rate 08/10/22 00:00 08/10/22 02:00 08/10/22 04:00 Temperature Pulse Rate 71 69 71 Pulse Rate [Monitor] Respiratory Rate Blood Pressure Blood Pressure [Left Arm] Pulse Oximetry Oxygen Delivery Method Oxygen Delivery Flow Rate 08/10/22 05:29 08/10/22 06:00 Temperature 97.0 F L Pulse Rate 68 68 Pulse Rate [Monitor] Respiratory Rate 20 Blood Pressure Blood Pressure [Left Arm] 151/77 H Pulse Oximetry 96 Oxygen Delivery Method Room Air Oxygen Delivery Flow Rate Common normals: no apparent distress Exam limitations: no altered mental status [facility] Common normals: normocephalic and moist oral mucous membranes Face and sinus: facial exam not normal (Left facial droop) Lymph Lymphatic: no lymphadenopathy noted Chest Common normals: inspection of chest normal Respiratory Common normals: normal respiratory effort Cardio Common normals: regular rate, regular rhythm, S1 normal heart sound, no gallops, no murmurs and no rub GI Common normals: Normal to inspection, nondistended, normoactive bowel sounds present Neuro Katt Coma Scale: other (nystagmus on bilat conjugate gaze) Common normals: oriented x3 and CN's II-XII intact bilaterally (Left facial droop - not new from bells palsy) Psych Common normals: mental status grossly normal Results Labs Labs: Short CBC 08/09/22 08/10/22 Range/Units 14:10 04:40 WBC 7.3 4.3 (4.0-11.0) 10^3/uL Hgb 12.6 11.1 L (12.0-16.0) g/dL Hct 37.8 33.5 L (36.0-48.0) % Plt Count 276 240 (150-450) 10^3/uL BMP 08/09/22 08/10/22 14:10 04:40 Sodium 132 L 135 L Potassium 4.1 3.7 Chloride 97 L 101 Carbon Dioxide 26.3 26.9 BUN 27.0 H 22.0 H Creatinine 1.16 H 1.10 H Glucose 134 H 93 Calcium 9.5 8.6 Liver Function 08/09/22 08/10/22 Range/Units 14:10 04:40 Total Bilirubin 0.5 0.4 (0.2-1.0) mg/dL AST 42 H 24 (15-37) U/L ALT 48 37 (14-59) U/L Alkaline Phosphatase 76 62 (46-116) U/L Albumin 3.6 2.9 L (3.4-5.0) g/dL Urine 08/09/22 Range/Units 15:45 Urine Color Lt. yellow (YELLOW) Urine Clarity Clear (CLEAR) Urine pH 8.0 (5.0-9.0) Ur Specific Muse 1.015 (1.005-1.025) Urine Protein Negative (NEG/TRACE) mg/dL Urine Glucose (UA) Negative (NEGATIVE) mg/dL Assessment and Plan Assessment and Plan (1) Dizziness: (2) Generalized weakness: (3) Acute hyponatremia: (4) Hypertension: (5) Hypothyroid: (6) Generalized arthritis: (7) CAD (coronary artery disease): Plan Dehydration with elevated BUN and creatinine and hyponatremia - Abnormal UA resulting in acute onset of vertigo-only confounding factor is patient also difficulty with her speech at that time, so need to work-up for posterior circulation TIA. Her speech feels normal to her at the present time. No changes overnight. Check CTA head and neck and echocardiogram, if all normal will discharge patient to home in improving condition. Medications see list. Follow-up with me in the office as needed. Dehydration-continue with fluids currently. A saline lock later today Abnormal UA-started patient on Cipro-May discharge with that as well orally. Vertigo-we will check as above, also gave 1 dose of Decadron and meclizine as needed. Her symptoms are since resolved at this time. Hypertension-continue with home medications Hypothyroidism-continue with current medications Depression with anxiety-continue current medications The patient overall improved likely discharge later today so maintain in observation
[2022-08-10] MEDS: ACETAMINOPHEN 500 MG TABLET 1000 MG PO (09:12)
[2022-08-10] MEDS: CITALOPRAM HYDROBROMIDE 20 MG TABLET 10 MG PO (09:16)
[2022-08-10] MEDS: DICLOFENAC SODIUM 25 MG TABLET.DR 75 MG PO (09:17)
[2022-08-10] MEDS: METOPROLOL SUCCINATE 50 MG TAB.ER.24H PO (09:18)
[2022-08-10] MEDS: ISOSORBIDE MONONITRATE 30 MG TAB.ER.24H PO (09:18)
[2022-08-10] MEDS: HYDROCODONE/ACETAMINOPHEN 5-325 MG TABLET 1 TAB PO (09:23)
[2022-08-10] MEDS: CIPROFLOXACIN IN 5 % DEXTROSE 400 MG/200 ML PIGGYBACK 200 MG IV (11:02)
--- NOTE | 2022-08-10 11:48 | SWNOTE1 ---
SW met with pt and to discuss dc needs. Pt is feeling much better and she lives at home with her . Pt denies having any needs at discharge. She worked with physical therapy and did very well. SW reviewed PAINTING form with pt and , they voiced understanding, no questions at this time. Pt signed form, original given to pt and copy placed in chart.
--- NOTE | 2022-08-11 12:10 | CM.DCFOLLOWU ---
Person spoke with:Patient's How are you feeling? Good How is your pain? None Did you understand your discharge instructions? Yes Do you have any questions about your discharge instructions? No Were you given any prescriptions at discharge? Yes Were you able to get your prescriptions filled? Yes, picking up this afternoon Do you understand how to take your medications as ordered? Yes Do you have any questions about your follow up appointment and do you plan to keep your follow up appointment? No and Yes Is there anything else that you would like to discuss? No Questions/Comments/Concerns/Other:
== END 2022-08-10 14:35 | disposition home or self-care (01) ==
LOC: ER 16:49 → MS 16:56
PROVIDERS: Physician Assistant; Admitting Provider Family Medicine; Emergency Provider Emergency Medicine; PCP Family Medicine; Visit Provider Family Medicine
DX: R42 Dizziness and giddiness (principal); R53.1 Weakness; E87.1 Hypo-osmolality and hyponatremia; I10 Essential (primary) hypertension; E03.9 Hypothyroidism, unspecified; M19.90 Unspecified osteoarthritis, unspecified site; I25.10 Atherosclerotic heart disease of native coronary artery without angina pectoris; R82.90 Unspecified abnormal findings in urine; F32.A Depression, unspecified; F41.9 Anxiety disorder, unspecified; I69.320 Aphasia following cerebral infarction; I69.398 Other sequelae of cerebral infarction; R29.810 Facial weakness; M41.86 Other forms of scoliosis, lumbar region; M51.34 Other intervertebral disc degeneration, thoracic region; M51.36 Other intervertebral disc degeneration, lumbar region; Z79.82 Long term (current) use of aspirin; Z79.899 Other long term (current) drug therapy; Z79.890 Hormone replacement therapy
CPT/HCPCS: 36415; 70450; 70496; 70498; 71045; 72148; 80053; 81003; 81015; 82948; 83605; 83735; 84443; 84484; 85025; 93005; 93242; 93306; 96361; 96365; 96366; 96375; 97161; 99285; G0378; Q9967

== ENCOUNTER 2022-08-18 15:48 | Outpatient (OUT) | payer MEDICARE, SELFPAY ==
[2022-08-18 16:13] LABS: Basophils Percent Auto 0.4 % (0.2-2.0); Eosinophils Absolute Auto 0.1 10^3/uL (0.0-0.7); Eosinophils Percent Auto 1.3 % (0.9-7.0); Hematocrit 38.3 % (36.0-48.0); Hemoglobin 12.8 g/dL (12.0-16.0); Immature Granulocytes Abs Auto 0.03 10^3/uL (0.00-0.03); Immature Granulocytes Pct Auto 0.6 % (0.0-0.5); Lymphocytes Absolute Auto 0.8 10^3/uL (1.2-3.8); Lymphocytes Percent Auto 13.8 % (20.5-60.0); Mean Corpuscular HGB Conc 33.4 g/dL (29.9-35.2); Mean Corpuscular Hemoglobin 30.8 pg (26.7-34.0); Mean Corpuscular Volume 92.3 fL (81.0-99.0); Monocytes Absolute Auto 0.7 10^3/uL (0.3-0.8); Monocytes Percent Auto 12.9 % (1.7-12.0); Neutrophils Absolute Auto 3.9 10^3/uL (1.4-6.5); Platelet Count 302 10^3/uL (150-450); Red Blood Count 4.15 10^6/uL (4.20-5.40); Red Cell Distribution Width 13.2 % (11.0-15.0); White Blood Count 5.4 10^3/uL (4.0-11.0)
[2022-08-18 16:32] LABS: Ammonia 10 umol/L (11-32)
[2022-08-18 16:46] LABS: Alanine Aminotransferase 52 U/L (14-59); Albumin Level 3.6 g/dL (3.4-5.0); Alkaline Phosphatase 82 U/L (46-116); Anion Gap 10.5; Aspartate Amino Transferase 37 U/L (15-37); BUN Creatinine Ratio 20.8; Bilirubin Total 0.3 mg/dL (0.2-1.0); Carbon Dioxide 30.3 mmol/L (21.0-32.0); Chloride 98 mmol/L (98-107); Estimated GFR (African America 52 (>=60); Estimated GFR (Non-African Ame 43 (>=60); Globulin 3.6 g/dL; Glucose 94 mg/dL (74-106); Potassium 3.8 mmol/L (3.5-5.1); Sodium 135 mmol/L (136-145); Total Protein 7.2 g/dL (6.4-8.2)
== END 2022-08-18 15:49 | disposition home or self-care (01) ==
LOC: LAB 15:51
PROVIDERS: PCP Family Medicine; Visit Provider Family Medicine
DX: R42 Dizziness and giddiness (principal)
CPT/HCPCS: 36415; 80053; 82140; 85025

== ENCOUNTER 2022-09-27 20:59 | Outpatient (OUT) | payer MEDICARE, SELFPAY | END 2022-09-27 21:00 | disposition home or self-care (01) | LOC: SLEEP 20:59 | PROVIDERS: PCP Family Medicine; Visit Provider Family Medicine | DX: G47.33 Obstructive sleep apnea (adult) (pediatric) (principal); I10 Essential (primary) hypertension; R42 Dizziness and giddiness; R53.83 Other fatigue; R06.83 Snoring; Z86.73 Personal history of transient ischemic attack (TIA), and cerebral infarction without residual deficits | CPT/HCPCS: 95810 ==

== ENCOUNTER 2022-10-20 13:22 | Outpatient (OUT) | payer MEDICARE, SELFPAY ==
--- NOTE | 2022-10-20 14:23 | P.CN_ITS ---
Consult Note: HPI Data of Consult Patient: known to practice within the last 3 years Requesting Physician: Vivian Meza NP Primary Care Provider: Luis Rogers MD Consult Narrative Reason for consult: low back and bilateral hip pain Narrative: Eleuterio Delgado a pleasant 83 year old female presents for follow up on chronic low back and bilateral hip pain. Patient has benefitted from numerous procedures in the past, most recently a right LCIH RFA which continues to provide >50% pain and functional improvement. Patient continues to have low back pain today rating pain 3/10. cc:: CC: Vivian Meza NP Review of Systems ROS Status of ROS 10 or more systems reviewed and unremarkable except as noted in history and below Musculoskeletal Reports: back pain and joint pain PFSH PFSH Medical History Social History Previous occupational history: Retired, , lives at home Meds Home Medications and Allergies Home Medications Medication Instructions Recorded Confirmed Type B complex with vitamin 1 cap PO DAILY 07/26/22 08/09/22 History A-uhuwaayqv-jkqz capsule Buderer compound cream topical DAILY 07/26/22 History acetaminophen 500 mg tablet 1,000 mg PO BID pain 07/26/22 08/09/22 History (Tylenol Extra Strength) aspirin 81 mg tablet,delayed 81 mg PO DAILY 07/26/22 08/09/22 History release blue emu 1 g topical DAILY 07/26/22 08/09/22 History calcium carb-vit D3-minerals 600 1 tab PO DAILY 07/26/22 08/09/22 History mg calcium-400 unit tablet capsaicin 0.025 % topical patch 1 patch topical DAILY pain 07/26/22 08/09/22 History (Salonpas-Hot) carica papaya 1 tab PO DAILY 07/26/22 08/09/22 History citalopram 10 mg tablet 10 mg PO DAILY 07/26/22 08/09/22 History cyclobenzaprine 5 mg tablet 5 mg PO BEDTIME PRN muscle spasm 07/26/22 08/09/22 History diclofenac sodium 75 mg 75 mg PO Q12H 07/26/22 08/09/22 History tablet,delayed release fexofenadine 180 mg tablet 180 mg PO DAILY 07/26/22 08/09/22 History (Benita Allergy) flaxseed oil 1,000 mg capsule 1,000 mg PO DAILY 07/26/22 08/09/22 History glucosamine 750 wx-pigulm-yig 2-C 1 tab PO DAILY 07/26/22 08/09/22 History 30 mg-D3 1,000 unit-maida 1 mg tablet (Eebxhrsjcyc-Dyxbgpavyuu-YAO + vitD) hydrocodone 5 mg-acetaminophen 325 1 tab PO BID PRN pain 07/26/22 08/09/22 History mg tablet isosorbide mononitrate 30 mg 30 mg PO DAILY 07/26/22 08/09/22 History tablet,extended release 24 hr levothyroxine 75 mcg capsule 75 mcg PO DAILY 07/26/22 08/09/22 History liothyronine 25 mcg tablet 25 mcg PO DAILY 07/26/22 08/09/22 History (Cytomel) melatonin 3 mg capsule 3 mg PO DAILY 07/26/22 08/09/22 History metoprolol succinate 50 mg 50 mg PO BID 07/26/22 08/09/22 History tablet,extended release 24 hr multivitamin 1 tab PO DAILY 07/26/22 08/09/22 History nitroglycerin 0.4 mg sublingual 0.4 mg sublingual Q5M 07/26/22 08/09/22 History tablet lorazepam 0.5 mg tablet (Ativan) 0.5 mg PO Q8H PRN anxiety 08/09/22 08/09/22 History ciprofloxacin HCl 500 mg tablet 500 mg PO BID #14 tabs 08/10/22 Rx (Cipro) meclizine 12.5 mg tablet 25 mg PO Q6H PRN Vertigo #14 tabs 08/10/22 Rx meclizine 25 mg tablet 25 mg PO QID PRN dizzy #20 tabs 08/10/22 Rx hydrocodone 5 mg-acetaminophen 325 1 tab PO BID PRN pain #60 tabs 10/20/22 Rx mg tablet Allergies Allergy/AdvReac Type Severity Reaction Status Date / Time Penicillins Allergy Severe Hives Verified 08/09/22 13:15 pregabalin [From Lyrica] Allergy Severe Dizziness Verified 08/09/22 13:15 propoxyphene [From Darvon] Allergy Severe Nausea Verified 08/09/22 13:15 fluconazole [From Diflucan] AdvReac Intermediate Verified 08/09/22 13:15 quinine [From Quinamm] AdvReac Mild Headache Verified 08/09/22 13:15 codeine Allergy Intermediate Dizziness Uncoded 08/09/22 13:15 decongest multi-action AdvReac Mild Uncoded 08/09/22 13:15 Exam Constitutional Documenting provider has reviewed patient's vital signs: yes Common normals: no apparent distress, oriented x3, healthy appearing, alert and well nourished General appearance: cooperative HENMT Common normals: normocephalic, hearing grossly normal bilaterally and moist oral mucous membranes Head and scalp: normocephalic Eye Common normals: PERRL Pupil: PERRL Neck & C-Spine Common normals: full ROM General: normal visual inspection Chest Common normals: inspection of chest normal Respiratory Common normals: normal respiratory effort, no retractions and no use of accessory muscles Back & Pelvis Lumbar spine/lower back: ROM limited, pain with ROM and straight leg raise negative bilaterally Sacroiliac joints: SI joint(s) abnormal (positive thigh thrust, fabers, gaenslens bilateral. ) Back image (female): 1. Extremity Common normals: normal to inspection Neuro Common normals: oriented x3, CN's II-XII intact bilaterally, moves all extremities, no focal motor deficits, no sensory deficits noted and deep tendon reflexes 2+ bilaterally Sensorium/orientation: alert Gait (neuro): antalgic and assistive device used walker Motor exam: strength 5/5 throughout and no movement abnormalities noted Psych Common normals: mental status grossly normal, thought process normal, cooperative, affect normal, speech normal and activity/motor behavior normal Speech: normal speech Thought process: normal thought process Results Additional Findings Additional findings: I have checked an OARRS report on this patient today and there are no aberrancies noted in the prescribing history.?? A drug screen was completed and reviewed within the last year, and if there has not been a drug screen completed we ordered one today to monitor higher risk, state monitored pain medication use. As part of providing excellent, safe, comprehensive care, the following was completed at our patient's visit: 1. A medication reconciliation and review to ensure accurate knowledge of current/active medications, including asking our patients to inform us about any ptdo-gid-eiekfyu medications or herbal remedies/nutritional supplements/alternative remedies. 2. A review to specifically ensure our patients have had annual screening for: elevated body mass index (BMI), tobacco use, screening for depression, and screening for unhealthy alcohol use. When screening is concerning, patients are provided with education and the specific recommendation to discuss the concernin g health issue and treatment options with their primary care provider. Assessment and Plan Assessment and Plan (1) Lumbar spondylosis: Assessment and Plan: The patient has had over 3 months of moderate to severe low back pain without radiculopathy with functional impairment and inadequate response to conservative care including NSAIDS (unless there are contraindication such as concurrent blood thinners), multiple oral or topical pain medications, and home exercise program/physical therapy.? The Oswestry Disability Index was completed, and the patient scored a 50%.? The patient noted the following:?? moderate pain, pain with ADLs, can only lift veyr light weights, can only walk using a walker, pain prevents her from standing longer than 10 minutes, pain has restricted her social life We discussed the risks and benefits of the procedure with the patient The procedure will be completed with fluoroscopic guidance.? Plan refill and continue norco 5/325mg BID PRN pain. no side effects. discussed risk vs benefits. providing functional improvement naloxone previously prescribed, discussed today continue flexeril 5mg am 10mg PM continue ES tylenol with norco, advised to limit tylenol to 3000mg total daily dose continue PT and HEP repeat right l2/3 l4/5 thermal RFA with iv sedation under fluoroscopy for low back pain, worse on right side f/u after procedure
== END 2022-10-20 13:23 | disposition home or self-care (01) ==
PROVIDERS: PCP Family Medicine; Visit Provider Nurse Practitioner
DX: M47.816 Spondylosis without myelopathy or radiculopathy, lumbar region (principal)
CPT/HCPCS: G0463

== ENCOUNTER 2022-10-20 20:53 | Outpatient (OUT) | payer MEDICARE, SELFPAY | END 2022-10-20 20:54 | disposition home or self-care (01) | LOC: PM 20:58 | PROVIDERS: PCP Family Medicine; Visit Provider Nurse Practitioner | DX: Z53.9 Procedure and treatment not carried out, unspecified reason (principal) ==

== ENCOUNTER 2022-10-20 21:00 | Outpatient (OUT) | payer MEDICARE, SELFPAY | END 2022-10-20 21:01 | disposition home or self-care (01) | LOC: SLEEP 11-01 08:10 | PROVIDERS: PCP Family Medicine; Visit Provider Family Medicine | DX: G47.33 Obstructive sleep apnea (adult) (pediatric) (principal); M47.816 Spondylosis without myelopathy or radiculopathy, lumbar region | CPT/HCPCS: 95811; G0463 ==

== ENCOUNTER 2022-11-15 08:11 | Day surgery (SDC) | payer MEDICARE, SELFPAY ==
[2022-11-15 08:25] VITALS: BP 150/88; RESP 14; TEMP 36.7; O2SAT 99
[2022-11-15] MEDS: 0.9 % SODIUM CHLORIDE 500 ML IV (08:33)
[2022-11-15] MEDS: BUPIVACAINE HCL 0.25% PF 25 MG/10 ML VIAL INJ (09:30)
[2022-11-15] MEDS: TRIAMCINOLONE ACETONIDE 40 MG/ML VIAL INJ (09:31)
[2022-11-15] MEDS: LIDOCAINE HCL 2% 400 MG/20 ML MDV 15 ML INJ (09:31)
--- NOTE | 2022-11-15 09:41 | P.ON_ITS ---
Date of procedure: 11/15/22 Pre-op diagnosis: Lumbar spondylosis Post-op diagnosis: same as pre-op Procedure: Procedure: Right L2-3, L4-5 radiofrequency ablation Medications: Bupivacaine 0.25% 4cc, lidocaine 1% 4cc, kenalog 40mg The patient was seen and examined in the preoperative holding area.? The site was marked.? Written informed consent was obtained and placed on the chart.? The patient was brought to the medical procedure unit and placed in the prone position.? A timeout was completed verifying correct patient, procedure, positioning, and special requirements.? The skin overlying the target points, the designated medial branch, were prepped and draped in the usual sterile fashion.? The target point was achieved with a 20-gauge 15 cm with a 10 mm curved active tip radiofrequency cannula under direct fluoroscopic visualization.? The needle was inserted at level L2 on the right side. Needle tip position was confirmed with lateral fluoroscopic position.? Motor stimulation was carried out at 2 Hz up to 5 volts with the absence of extremity activity.? This was repeated at level L3, 4, 5 on right side.?? Sensory stimulation was carried out.? Concordant pain was realized at the above- mentioned sites.? Then radiofrequency lesioning was carried out times 90 seconds at 80 degrees times 2 lesions at each level.? The radiofrequency probe was removed prior to cannula removal.? The above-mentioned injectate was placed in 1 mL increments.? The needle was removed.? Insertion sites were covered.? The patient was taken to the postoperative recovery area and monitored for an appropriate length of time before being found suitable for discharge in the company of a responsible adult. Anesthesia: Moderate Sedation Surgeon: Lyn Quiñones Pathology: none sent Condition: stable Disposition: no change
[2022-11-15 09:43] VITALS: BP 137/72; PULSE 70; RESP 15; TEMP 36.2
[2022-11-15 09:46] VITALS: BP 133/69; PULSE 70; RESP 16; O2SAT 95
== END 2022-11-15 10:09 | disposition home or self-care (01) ==
PROVIDERS: PCP Family Medicine; Visit Provider Anesthesiology
DX: M47.816 Spondylosis without myelopathy or radiculopathy, lumbar region (principal)
CPT/HCPCS: 64635; 64636; J2704

== ENCOUNTER 2022-11-26 13:30 | Outpatient (OUT) | payer MEDICARE, SELFPAY ==
--- NOTE | 2022-11-26 13:34 | MM_ITS ---
Patient: KARINA CORMIER Exam Date: 11/26/2022 : 1940 Gender:F Ordering : DR Luis Rogers . Admission #: [id number] Family : Order #: [id number] CLICK HERE TO VIEW EXAM RADIOLOGY REPORT PROCEDURE: MM SCREENING MAMMO BI COMPARISON: MG MAMM SCREEN 3D CLEMENCIA CAD, 11/25/2021. MG MAMM SCREEN 3D CLEMENCIA CAD, 11/24/2020. INDICATIONS: Screening Calculator Name NCI Breast Cancer Risk Assessment Tool 5 Year Breast Cancer Risk 2.00% Lifetime Breast Cancer Risk 2.50% Personal Breast Cancer No Personal Ovarian Cancer No Treatments None Family Cancers None LOCATION: [facility] BREAST COMPOSITION: Scattered areas fibroglandular density. FINDINGS: DIAGNOSTIC CATEGORY 2--BENIGN FINDING. NO CHANGE FROM COMPARISON. Scattered benign-appearing calcifications are present. Scattered benign-appearing lymph nodes are present. RIGHT BREAST: No significant suspicious finding. LEFT BREAST: No significant suspicious finding. RECOMMENDATIONS: ROUTINE MAMMOGRAM AND CLINICAL EVALUATION IN 12 MONTHS. PLEASE NOTE: A NORMAL MAMMOGRAM DOES NOT EXCLUDE THE POSSIBILITY OF BREAST CANCER. A CLINICALLY SUSPICIOUS PALPABLE LUMP SHOULD BE BIOPSIED. Dictated by: Nando Suarez MD on 11/29/2022 at 08:04 Approved by: Nando Suarez MD on 11/29/2022 at 08:06
== END 2022-11-26 13:31 | disposition home or self-care (01) ==
LOC: MAMMO 13:30
PROVIDERS: PCP Family Medicine; Visit Provider Family Medicine
DX: Z12.31 Encounter for screening mammogram for malignant neoplasm of breast (principal)
CPT/HCPCS: 77067

== ENCOUNTER 2022-12-13 10:44 | Outpatient (OUT) | payer MEDICARE, SELFPAY ==
[2022-12-13 11:13] LABS: Basophils Percent Auto 0.5 % (0.2-2.0); Eosinophils Absolute Auto 0.1 10^3/uL (0.0-0.7); Eosinophils Percent Auto 1.9 % (0.9-7.0); Hematocrit 37.8 % (36.0-48.0); Hemoglobin 12.4 g/dL (12.0-16.0); Immature Granulocytes Abs Auto 0.01 10^3/uL (0.00-0.03); Immature Granulocytes Pct Auto 0.2 % (0.0-0.5); Lymphocytes Absolute Auto 0.6 10^3/uL (1.2-3.8); Lymphocytes Percent Auto 14.5 % (20.5-60.0); Mean Corpuscular HGB Conc 32.8 g/dL (29.9-35.2); Mean Corpuscular Hemoglobin 31.8 pg (26.7-34.0); Mean Corpuscular Volume 96.9 fL (81.0-99.0); Mean Platelet Volume 9.1 fL (9.5-13.5); Monocytes Absolute Auto 0.4 10^3/uL (0.3-0.8); Neutrophils Absolute Auto 3.1 10^3/uL (1.4-6.5); Neutrophils Percent Auto 72.9 % (43.0-75.0); Platelet Count 303 10^3/uL (150-450); Red Cell Distribution Width 13.4 % (11.0-15.0); White Blood Count 4.2 10^3/uL (4.0-11.0)
[2022-12-13 11:23] LABS: Estimated Average Glucose 103 mg/dL; Glycohemoglobin A1C 5.2 % (4.5-6.2)
[2022-12-13 12:28] LABS: Alanine Aminotransferase 48 U/L (14-59); Albumin Level 3.6 g/dL (3.4-5.0); Alkaline Phosphatase 82 U/L (46-116); Anion Gap 11.7; Aspartate Amino Transferase 31 U/L (15-37); BUN Creatinine Ratio 21.8; Bilirubin Total 0.3 mg/dL (0.2-1.0); Calcium 9.2 mg/dL (8.5-10.1); Chloride 101 mmol/L (98-107); Chol HDL Ratio 2.8; Cholesterol 193 mg/dL (<=200); Estimated GFR (African America >60 (>=60); Estimated GFR (Non-African Ame 52 (>=60); Globulin 3.5 g/dL; Glucose 91 mg/dL (74-106); HDL Cholesterol 68 mg/dL (40-60); Potassium 3.7 mmol/L (3.5-5.1); Sodium 139 mmol/L (136-145); Thyroid Stimulating Hormone 0.044 uIU/mL (0.358-3.740); Total Protein 7.1 g/dL (6.4-8.2); Triglycerides 77 mg/dL (<=150); VLDL CHOLESTEROL 15.4 mg/dL
[2022-12-13 13:08] LABS: Free T4 0.95 ng/dL (0.76-1.46)
== END 2022-12-13 10:45 | disposition home or self-care (01) ==
LOC: LAB 10:44
PROVIDERS: PCP Family Medicine; Visit Provider Family Medicine
DX: Z79.899 Other long term (current) drug therapy (principal); E78.5 Hyperlipidemia, unspecified; E03.9 Hypothyroidism, unspecified; R73.09 Other abnormal glucose; R53.83 Other fatigue
CPT/HCPCS: 36415; 80053; 80061; 83036; 84439; 84443; 85025

== ENCOUNTER 2022-12-15 14:17 | Outpatient (OUT) | payer MEDICARE, SELFPAY ==
--- NOTE | 2022-12-15 15:39 | P.CN_ITS ---
Consult Note: HPI Data of Consult Patient: known to practice within the last 3 years Requesting Physician: Vivian Meza NP Primary Care Provider: Luis Rogers MD Consult Narrative Reason for consult: f/u Narrative: Eleuterio Delgado a pleasant 83 year old female presents for follow up on chronic low back and right hip pain. Patient rating pain today 5/10 in low back and right hip. Tolerating current medication regimen well without side effects, but would like to further discuss additional injection therapy options to further improve quality of life and reduce her pain. Unfortunately she had no relief to the most recent lumbar ablation. cc:: CC: Vivian Meza NP Review of Systems ROS Status of ROS 10 or more systems reviewed and unremarkable except as noted in history and below Musculoskeletal Reports: back pain and joint pain PFSH PFSH Medical History Closed fracture of coccyx ?S32.2XXA - Fracture of coccyx, initial encounter for closed fracture (ICD- 10) Dizziness ?R42 - Dizziness and giddiness (ICD-10) Generalized weakness ?R53.1 - Weakness (ICD-10) H/O pyelonephritis ?Z87.448 - Personal history of other diseases of urinary system (ICD-10) Osteoarthritis ?M19.90 - Unspecified osteoarthritis, unspecified site (ICD-10) Syncope ?R55 - Syncope and collapse (ICD-10) TIA (transient ischemic attack) ?G45.9 - Transient cerebral ischemic attack, unspecified (ICD-10) Surgical History H/O bladder repair surgery ?Z98.890 - Other specified postprocedural states (ICD-10) H/O breast surgery ?Z98.890 - Other specified postprocedural states (ICD-10) H/O dilation and curettage ?Z98.890 - Other specified postprocedural states (ICD-10) H/O discectomy ?Z98.890 - Other specified postprocedural states (ICD-10) H/O foot surgery ?Z98.890 - Other specified postprocedural states (ICD-10) H/O knee surgery ?Z98.890 - Other specified postprocedural states (ICD-10) H/O: hysterectomy ?Z90.710 - Acquired absence of both cervix and uterus (ICD-10) History of appendectomy ?Z90.49 - Acquired absence of other specified parts of digestive tract (ICD- 10) History of arthroscopic knee surgery ?Z98.890 - Other specified postprocedural states (ICD-10) History of right knee joint replacement ?Z96.651 - Presence of right artificial knee joint (ICD-10) History of YAG laser capsulotomy of lens ?Z98.49 - Cataract extraction status, unspecified eye (ICD-10) Hx laparoscopic cholecystectomy ?Z90.49 - Acquired absence of other specified parts of digestive tract (ICD- 10) Hx of tonsillectomy ?Z90.89 - Acquired absence of other organs (ICD-10) Social History Previous occupational history: Retired, , lives at home Meds Home Medications and Allergies Home Medications Medication Instructions Recorded Confirmed Type B complex with vitamin 1 cap PO DAILY 07/26/22 11/15/22 History X-ehvxhmgkr-qtcq capsule Buderer compound cream topical DAILY 07/26/22 History acetaminophen 500 mg tablet 1,000 mg PO BID pain 07/26/22 11/15/22 History (Tylenol Extra Strength) aspirin 81 mg tablet,delayed 81 mg PO DAILY 07/26/22 11/15/22 History release blue emu 1 g topical DAILY 07/26/22 11/15/22 History calcium carb-vit D3-minerals 600 1 tab PO DAILY 07/26/22 11/15/22 History mg calcium-400 unit tablet capsaicin 0.025 % topical patch 1 patch topical DAILY pain 07/26/22 11/15/22 History (Salonpas-Hot) citalopram 10 mg tablet 10 mg PO DAILY 07/26/22 11/15/22 History cyclobenzaprine 5 mg tablet 5 mg PO BEDTIME PRN muscle spasm 07/26/22 11/15/22 History diclofenac sodium 75 mg 75 mg PO Q12H 07/26/22 11/15/22 History tablet,delayed release fexofenadine 180 mg tablet 180 mg PO DAILY 07/26/22 11/15/22 History (Benita Allergy) flaxseed oil 1,000 mg capsule 1,000 mg PO DAILY 07/26/22 11/15/22 History glucosamine 750 nn-loexby-rhd 2-C 1 tab PO DAILY 07/26/22 11/15/22 History 30 mg-D3 1,000 unit-maida 1 mg tablet (Zpjlqfmqcps-Azwsnwmweid-JQB + vitD) hydrocodone 5 mg-acetaminophen 325 1 tab PO BID PRN pain 07/26/22 11/15/22 History mg tablet isosorbide mononitrate 30 mg 30 mg PO DAILY 07/26/22 11/15/22 History tablet,extended release 24 hr levothyroxine 75 mcg capsule 75 mcg PO DAILY 07/26/22 11/15/22 History liothyronine 25 mcg tablet 25 mcg PO DAILY 07/26/22 11/15/22 History (Cytomel) melatonin 3 mg capsule 3 mg PO DAILY 07/26/22 11/15/22 History metoprolol succinate 50 mg 50 mg PO BID 07/26/22 11/15/22 History tablet,extended release 24 hr multivitamin 1 tab PO DAILY 07/26/22 11/15/22 History nitroglycerin 0.4 mg sublingual 0.4 mg sublingual Q5M 07/26/22 11/15/22 History tablet meclizine 12.5 mg tablet 25 mg PO Q6H PRN Vertigo #14 tabs 08/10/22 11/15/22 Rx meclizine 25 mg tablet 25 mg PO QID PRN dizzy #20 tabs 08/10/22 11/15/22 Rx hydrocodone 5 mg-acetaminophen 325 1 tab PO BID PRN pain #60 tabs 10/20/22 11/15/22 Rx mg tablet hydrocodone 5 mg-acetaminophen 325 1 tab PO BID PRN pain #60 tabs 11/22/22 Rx mg tablet Allergies Allergy/AdvReac Type Severity Reaction Status Date / Time Penicillins Allergy Severe Hives Verified 11/15/22 08:17 codeine AdvReac Intermediate Dizziness Verified 11/15/22 08:37 fluconazole [From Diflucan] AdvReac Intermediate Verified 11/15/22 08:17 quinine [From Quinamm] AdvReac Mild Headache Verified 11/15/22 08:17 decongest multi-action AdvReac Mild Uncoded 11/15/22 08:17 Exam Constitutional Documenting provider has reviewed patient's vital signs: yes Common normals: no apparent distress, oriented x3, healthy appearing, alert and well nourished General appearance: cooperative HENMT Common normals: normocephalic, hearing grossly normal bilaterally and moist oral mucous membranes Head and scalp: normocephalic Eye Common normals: PERRL Pupil: PERRL Neck & C-Spine Common normals: full ROM General: normal visual inspection Chest Common normals: inspection of chest normal Respiratory Common normals: normal respiratory effort, no retractions and no use of accessory muscles Back & Pelvis Lumbar spine/lower back: ROM limited, pain with ROM and straight leg raise negative bilaterally Sacroiliac joints: SI joint(s) abnormal (positive thigh thrust, fabers, gaenslens right) Extremity Common normals: normal to inspection Right lower extremity: hip joint Other: right hip tender to GTB and following IT band pain with internal and external rotation of right hip Neuro Common normals: oriented x3, CN's II-XII intact bilaterally, moves all extremities, no focal motor deficits, no sensory deficits noted and deep tendon reflexes 2+ bilaterally Sensorium/orientation: alert Gait (neuro): antalgic and assistive device used walker Motor exam: strength 5/5 throughout and no movement abnormalities noted Psych Common normals: mental status grossly normal, thought process normal, cooperative, affect normal, speech normal and activity/motor behavior normal Speech: normal speech Thought process: normal thought process Results Additional Findings Additional findings: I have checked an OARRS report on this patient today and there are no aberrancies noted in the prescribing history.?? A drug screen was completed and reviewed within the last year, and if there has not been a drug screen completed we ordered one today to monitor higher risk, state monitored pain medication use. As part of providing excellent, safe, comprehensive care, the following was completed at our patient's visit: 1. A medication reconciliation and review to ensure accurate knowledge of current/active medications, including asking our patients to inform us about any kinb-xhz-tvycsdi medications or herbal remedies/nutritional supplements/alternative remedies. 2. A review to specifically ensure our patients have had annual screening for: elevated body mass index (BMI), tobacco use, screening for depression, and screening for unhealthy alcohol use. When screening is concerning, patients are provided with education and the specific recommendation to discuss the concerning health issue and treatment options with their primary care provider. Assessment and Plan Assessment and Plan (1) Lumbar spondylosis: (2) Lumbar degenerative disc disease: (3) Sacroiliitis: (4) Greater trochanteric bursitis: (5) Chronic, continuous use of opioids: Plan right GTB injection right L4-5 L5-S1 TFESI under fluoroscopy followed by right nerve block innervating the SIJ under fluoroscopy two weeks after increase norco to 5-325 TID PRN narcan previously prescribed and discussed f/u after injections
== END 2022-12-15 14:18 | disposition home or self-care (01) ==
LOC: PM 12-17 14:17
PROVIDERS: PCP Family Medicine; Visit Provider Nurse Practitioner
DX: M47.816 Spondylosis without myelopathy or radiculopathy, lumbar region (principal); M51.36 Other intervertebral disc degeneration, lumbar region; M46.1 Sacroiliitis, not elsewhere classified; M70.61 Trochanteric bursitis, right hip; Z79.891 Long term (current) use of opiate analgesic
CPT/HCPCS: G0463

== ENCOUNTER 2022-12-16 13:01 | Outpatient (OUT) | payer MEDICARE, SELFPAY | END 2022-12-16 13:02 | disposition home or self-care (01) | LOC: CARD 13:01 | PROVIDERS: PCP Family Medicine; Visit Provider Family Medicine | DX: Z53.8 Procedure and treatment not carried out for other reasons (principal) ==

== ENCOUNTER 2022-12-20 14:01 | Outpatient (OUT) | payer MEDICARE, SELFPAY ==
--- NOTE | 2022-12-20 14:38 | PM.CN ---
Consult Note: HPI Data of Consult Patient: known to practice within the last 3 years Consult date: 12/20/22 Requesting Physician: Lyn Quiñones MD Primary Care Provider: Luis Rogers MD Consult Narrative Reason for consult: low back, right hip and leg pain Narrative: 82yof who presents for assessment. worsening low back and right hip and leg pain, ongoing for years. tender over right hip area. engages in provider directed home exercise program >6 weeks, with minimal benefit. uses norco. denies adverse med side effects. cc:: CC: Lyn Quiñones MD Review of Systems ROS Status of ROS 10 or more systems reviewed and unremarkable except as noted in history and below [facility] Medical History Closed fracture of coccyx ?S32.2XXA - Fracture of coccyx, initial encounter for closed fracture (ICD-10) Dizziness ?R42 - Dizziness and giddiness (ICD-10) Generalized weakness ?R53.1 - Weakness (ICD-10) H/O pyelonephritis ?Z87.448 - Personal history of other diseases of urinary system (ICD-10) Osteoarthritis ?M19.90 - Unspecified osteoarthritis, unspecified site (ICD-10) Syncope ?R55 - Syncope and collapse (ICD-10) TIA (transient ischemic attack) ?G45.9 - Transient cerebral ischemic attack, unspecified (ICD-10) Surgical History H/O bladder repair surgery ?Z98.890 - Other specified postprocedural states (ICD-10) H/O breast surgery ?Z98.890 - Other specified postprocedural states (ICD-10) H/O dilation and curettage ?Z98.890 - Other specified postprocedural states (ICD-10) H/O discectomy ?Z98.890 - Other specified postprocedural states (ICD-10) H/O foot surgery ?Z98.890 - Other specified postprocedural states (ICD-10) H/O knee surgery ?Z98.890 - Other specified postprocedural states (ICD-10) H/O: hysterectomy ?Z90.710 - Acquired absence of both cervix and uterus (ICD-10) History of appendectomy ?Z90.49 - Acquired absence of other specified parts of digestive tract (ICD-10) History of arthroscopic knee surgery ?Z98.890 - Other specified postprocedural states (ICD-10) History of right knee joint replacement ?Z96.651 - Presence of right artificial knee joint (ICD-10) History of YAG laser capsulotomy of lens ?Z98.49 - Cataract extraction status, unspecified eye (ICD-10) Hx laparoscopic cholecystectomy ?Z90.49 - Acquired absence of other specified parts of digestive tract (ICD-10) Hx of tonsillectomy ?Z90.89 - Acquired absence of other organs (ICD-10) Social History Previous occupational history: Retired, , lives at home Meds Home Medications and Allergies Home Medications Medication Instructions Recorded Confirmed Type B complex with vitamin 1 cap PO DAILY 07/26/22 11/15/22 History C-jipzkbjro-wrus capsule Buderer compound cream topical DAILY 07/26/22 History acetaminophen 500 mg tablet 1,000 mg PO BID pain 07/26/22 11/15/22 History (Tylenol Extra Strength) aspirin 81 mg tablet,delayed 81 mg PO DAILY 07/26/22 11/15/22 History release blue emu 1 g topical DAILY 07/26/22 11/15/22 History calcium carb-vit D3-minerals 600 1 tab PO DAILY 07/26/22 11/15/22 History mg calcium-400 unit tablet capsaicin 0.025 % topical patch 1 patch topical DAILY pain 07/26/22 11/15/22 History (Salonpas-Hot) citalopram 10 mg tablet 10 mg PO DAILY 07/26/22 11/15/22 History cyclobenzaprine 5 mg tablet 5 mg PO BEDTIME PRN muscle spasm 07/26/22 11/15/22 History diclofenac sodium 75 mg 75 mg PO Q12H 07/26/22 11/15/22 History tablet,delayed release fexofenadine 180 mg tablet 180 mg PO DAILY 07/26/22 11/15/22 History (Benita Allergy) flaxseed oil 1,000 mg capsule 1,000 mg PO DAILY 07/26/22 11/15/22 History glucosamine 750 dt-pnfnhq-oov 2-C 1 tab PO DAILY 07/26/22 11/15/22 History 30 mg-D3 1,000 unit-maida 1 mg tablet (Aocplifoaci-Lnellysysdl-OLV + vitD) hydrocodone 5 mg-acetaminophen 325 1 tab PO BID PRN pain 07/26/22 11/15/22 History mg tablet isosorbide mononitrate 30 mg 30 mg PO DAILY 07/26/22 11/15/22 History tablet,extended release 24 hr levothyroxine 75 mcg capsule 75 mcg PO DAILY 07/26/22 11/15/22 History liothyronine 25 mcg tablet 25 mcg PO DAILY 07/26/22 11/15/22 History (Cytomel) melatonin 3 mg capsule 3 mg PO DAILY 07/26/22 11/15/22 History metoprolol succinate 50 mg 50 mg PO BID 07/26/22 11/15/22 History tablet,extended release 24 hr multivitamin 1 tab PO DAILY 07/26/22 11/15/22 History nitroglycerin 0.4 mg sublingual 0.4 mg sublingual Q5M 07/26/22 11/15/22 History tablet meclizine 12.5 mg tablet 25 mg PO Q6H PRN Vertigo #14 tabs 08/10/22 11/15/22 Rx meclizine 25 mg tablet 25 mg PO QID PRN dizzy #20 tabs 08/10/22 11/15/22 Rx hydrocodone 5 mg-acetaminophen 325 1 tab PO BID PRN pain #60 tabs 10/20/22 11/15/22 Rx mg tablet hydrocodone 5 mg-acetaminophen 325 1 tab PO BID PRN pain #60 tabs 11/22/22 Rx mg tablet Allergies Allergy/AdvReac Type Severity Reaction Status Date / Time Penicillins Allergy Severe Hives Verified 11/15/22 08:17 codeine AdvReac Intermediate Dizziness Verified 11/15/22 08:37 fluconazole [From Diflucan] AdvReac Intermediate Verified 11/15/22 08:17 quinine [From Quinamm] AdvReac Mild Headache Verified 11/15/22 08:17 decongest multi-action AdvReac Mild Uncoded 11/15/22 08:17 Exam Narrative Exam Narrative: Psych-alert and oriented x 3.? Attentive and appropriate, constitutionally normal, displays normal mood and affect per situation.? There are no obvious deficits in memory, reasoning, or intellect.? Skin-no obvious rashes, bruising, erythema noted to the patient's area of pain. Extremities- extremities are warm with minimal edema and palpable pulses. Hip-tenderness to palpation is noted over the right hip joint.?Painful palpation over right troch bursa. Pain is elicited with internal and external rotation of the hip.? Hip provocative maneuvers are positive and consistent with the patient's normal pain.? Coordination remains intact.? Gait remains antalgic. Assessment and Plan Assessment and Plan (1) Greater trochanteric bursitis: (2) Lumbar degenerative disc disease: (3) Sacroiliitis: Plan 82yof who presents for assessment. worsening low back, right hip pain. tender to palpation over right troch bursa. given symptoms and exam findings, will proceed with right greater troch bursa injection. she is in agreement. medications reviewed, will refill norco and allow tid prn. she expressed understanding. follow up in 4-6 weeks. Procedure: Right greater trochanteric bursa injection Medications: Bupivacaine 0.25% 4cc, kenalog 40mg I explained the details of the procedure to the patient including the risks, benefits and alternatives. We had an informed discussion and the patient verbalized understanding and signed the consent form. All questions were answered appropriately.? A time out was performed.? After obtaining a comfortable lateral position with left-side up including placing a towel roll under the knees bilaterally, the skin overlying the lateral hip were prepped with Chloraprep. A sterile syringe containing 4 ml of bupivacaine 0.25% and kenalog 40mg were attached to a 25 guage, 3.5 inch needle under strict aseptic technique. The greater trochanter and point of tenderness was palpated. At this point, the needle was than advanced through the subcutaneous tissue down to os. The needle was withdrawn slightly and the contents of the syringe were gently injected without any resistance. The needle was removed and pressure was applied to the injection site to decrease the incidence of ecchymosis and hematoma formation.? A sterile bandage was applied. Post procedural instructions were given to the patient.
== END 2022-12-20 14:02 | disposition home or self-care (01) ==
PROVIDERS: PCP Family Medicine; Visit Provider Anesthesiology
DX: M70.61 Trochanteric bursitis, right hip (principal); M51.36 Other intervertebral disc degeneration, lumbar region; M46.1 Sacroiliitis, not elsewhere classified
CPT/HCPCS: 20610

== ENCOUNTER 2022-12-27 08:37 | Day surgery (SDC) | payer MEDICARE, SELFPAY ==
[2022-12-27 09:29] VITALS: BP 172/88; PULSE 80; RESP 14; TEMP 36.7; O2SAT 98
[2022-12-27 10:05] VITALS: BP 167/99; PULSE 80; RESP 18; O2SAT 95
[2022-12-27 10:08] VITALS: BP 161/92; PULSE 80; RESP 18; O2SAT 95
[2022-12-27] MEDS: LIDOCAINE HCL 2% PF 100 MG/5 ML VIAL 3 ML INJ (10:08)
[2022-12-27] MEDS: IOHEXOL 240 MG/ML - 10 ML VIAL 12 MG INJ (10:08)
[2022-12-27] MEDS: TRIAMCINOLONE ACETONIDE 40 MG/ML VIAL 80 MG INJ (10:08)
[2022-12-27] MEDS: BUPIVACAINE HCL 0.25% PF 25 MG/10 ML VIAL INJ (10:08)
--- NOTE | 2022-12-27 10:10 | P.ON_ITS ---
Date of procedure: 12/27/22 Pre-op diagnosis: Lumbar stenosis with neurogenic claudication Post-op diagnosis: same as pre-op Procedure: Procedure: Right L4-5, L5-S1 transforaminal epidural steroid injection Medications: Bupivacaine 0.5% 2cc, kenalog 80mg The patient was seen and examined in the preoperative holding area.? Informed consent was obtained and placed on the chart.? Patient was brought to the medical procedure unit and placed in the prone position where a timeout was completed verifying the correct patient, procedure site, position, and planned special equipment using sterile aseptic technique.? Under direct fluoroscopic visualization a 25-gauge Quincke tipped spinal needle was advanced to the designated neural foramen where contrast dye was injected to show adequate spread.? The needle was inserted at level right L4-5. There was no evidence of vascular or adverse uptake.? Epidural spread was appreciated.? The above- mentioned injectate was then placed in a 1.5 mL aliquot preceded by negative aspiration.? The needle was removed. The needle was inserted and the procedure repeated at level right L5-S1.? The surgery site was covered.? Patient was taken to the postprocedural recovery area and monitored for an appropriate length of time before found suitable for discharge in the accompaniment of a responsible adult. Anesthesia: Local Surgeon: Lyn Quiñones Pathology: none sent Condition: stable Disposition: no change
[2022-12-27] MEDS: 0.9 % SODIUM CHLORIDE 10 ML INJ (13:32)
== END 2022-12-27 10:17 | disposition home or self-care (01) ==
PROVIDERS: PCP Family Medicine; Visit Provider Anesthesiology
DX: M48.062 Spinal stenosis, lumbar region with neurogenic claudication (principal)
CPT/HCPCS: 64483; 64484; Q9966

== ENCOUNTER 2022-12-31 11:29 | Outpatient (OUT) | payer MEDICARE, SELFPAY ==
--- NOTE | 2022-12-31 11:37 | XR_ITS ---
[facility] [place] [id number] Patient Name: KARINA CORMIER MRN: [id number] date: 1940 Sex: F Assigned Patient Location: [facility] Current Patient Location: [facility] Accession/Order Number: [id number] Exam Date: 12/31/2022 11:40 Report Date: 01/01/2023 14:45 At the request of: GALINA PALMER Procedure: XR hip RT min 2V CLINICAL HISTORY: Pain In Right Hip M25.551. Status post fall 3 days ago, posterior, lateral hip pain. EXAMINATION: Right hip: 12/31/2022. COMPARISON: AP pelvis 03/31/2017. FINDINGS: AP, frog leg lateral view are performed which demonstrate there is moderate narrowing of the hip joint without fractures or dislocations. There is no joint effusion. The surrounding soft tissues are normal. Partially visualized lower lumbar vertebral bodies demonstrate degenerative changes with mild scoliotic curvature to the right. There is old healed fracture involving the inferior, superior pubic rami on the left. Other visualized pelvic bones appear intact. Surrounding soft tissues are normal. There are calcified phleboliths within the pelvis. XR/XR hip RT min 2V IMPRESSION: 1. No acute fractures or dislocations of the right hip joint. 2. Mild to moderate degenerative changes of the right hip joint. 3. Old healed fractures involving the inferior, superior pubic rami on the left. Electronically authenticated by: TITO BAUGH Date: 01/01/2023 14:45
== END 2022-12-31 11:30 | disposition home or self-care (01) ==
LOC: RAD 11:29
PROVIDERS: PCP Family Medicine; Visit Provider Family Medicine
DX: M25.551 Pain in right hip (principal)
CPT/HCPCS: 73502

== ENCOUNTER 2023-01-17 10:08 | Day surgery (SDC) | payer MEDICARE, SELFPAY ==
[2023-01-17 10:57] VITALS: BP 182/83; PULSE 84; RESP 18; TEMP 36.4; O2SAT 98
[2023-01-17 11:26] VITALS: BP 166/87; PULSE 60; RESP 18; O2SAT 96
--- NOTE | 2023-01-17 11:27 | W.PM.PROCNOT ---
Date of procedure: 01/17/23 Pre-op diagnosis: Right sacroiliitis Post-op diagnosis: same as pre-op Procedure: Procedure: Right block of the nerve innervating the sacroiliac joint Medications: Bupivacaine 0.25% 3cc, kenalog 40mg After informed consent was obtained, the patient was brought to the medical procedure unit and placed in the prone position, when a timeout was completed verifying correct patient, procedure, site, positioning, implant, and/or special equipment.? The skin overlying the area was prepped and draped in standard sterile fashion using alcohol.? A 25-gauge needle was inserted towards the right nerve innervating the sacroiliac joint under direct fluoroscopic imaging.? Needle tip was advanced until the nerve was encountered.? We instilled a total of 3 mL of solution.? Postoperatively needles were removed.? The patient tolerated the procedure well without complication.? The patient reported reduction in pain symptoms postoperatively. Anesthesia: Local Surgeon: Lyn Quiñones Pathology: none sent Condition: stable Disposition: no change
[2023-01-17] MEDS: LIDOCAINE HCL 2% PF 100 MG/5 ML VIAL 1 ML INJ (11:30)
[2023-01-17] MEDS: BUPIVACAINE HCL 0.25% PF 25 MG/10 ML VIAL 2 ML INJ (11:30)
[2023-01-17] MEDS: TRIAMCINOLONE ACETONIDE 40 MG/ML VIAL INJ (11:31)
[2023-01-20 07:51] VITALS: BP 165/89; PULSE 78; RESP 16; O2SAT 97
== END 2023-01-17 11:34 | disposition home or self-care (01) ==
PROVIDERS: PCP Family Medicine; Visit Provider Anesthesiology
DX: M46.1 Sacroiliitis, not elsewhere classified (principal)
CPT/HCPCS: 64451

== ENCOUNTER 2023-01-27 14:40 | Outpatient (OUT) | payer MEDICARE, SELFPAY ==
--- NOTE | 2023-01-27 15:01 | P.CN_ITS ---
Consult Note: HPI Data of Consult Patient: known to practice within the last 3 years Requesting Physician: Vivian Meza NP Primary Care Provider: Luis Rogers MD Consult Narrative Reason for consult: procedure f/u Narrative: Alexa Delgado a pleasant 82 year old female presents for evaluation and management of chronic pain. Recently underwent left GTB injection, right L4-5 L5-S1 TFESI, and right nerve block innervating the SIJ. Patient rating pain 4/10 today. Patients reporting functional improvement after TFESI and right nerve block innervating the SIJ. cc:: CC: Vivian Meza NP Review of Systems ROS Status of ROS 10 or more systems reviewed and unremark able except as noted in history and below Musculoskeletal Reports: back pain and joint pain PFSH PFSH Medical History Closed fracture of coccyx ?S32.2XXA - Fracture of coccyx, initial encounter for closed fracture (ICD- 10) Dizziness ?R42 - Dizziness and giddiness (ICD-10) Generalized weakness ?R53.1 - Weakness (ICD-10) H/O pyelonephritis ?Z87.448 - Personal history of other diseases of urinary system (ICD-10) Osteoarthritis ?M19.90 - Unspecified osteoarthritis, unspecified site (ICD-10) Syncope ?R55 - Syncope and collapse (ICD-10) TIA (transient ischemic attack) ?G45.9 - Transient cerebral ischemic attack, unspecified (ICD-10) Surgical History H/O bladder repair surgery ?Z98.890 - Other specified postprocedural states (ICD-10) H/O breast surgery ?Z98.890 - Other specified postprocedural states (ICD-10) H/O knee surgery ?Z98.890 - Other specified postprocedural states (ICD-10) H/O foot surgery ?Z98.890 - Other specified postprocedural states (ICD-10) History of right knee joint replacement ?Z96.651 - Presence of right artificial knee joint (ICD-10) History of YAG laser capsulotomy of lens ?Z98.49 - Cataract extraction status, unspecified eye (ICD-10) Hx laparoscopic cholecystectomy ?Z90.49 - Acquired absence of other specified parts of digestive tract (ICD- 10) H/O: hysterectomy ?Z90.710 - Acquired absence of both cervix and uterus (ICD-10) History of arthroscopic knee surgery ?Z98.890 - Other specified postprocedural states (ICD-10) H/O discectomy ?Z98.890 - Other specified postprocedural states (ICD-10) H/O dilation and curettage ?Z98.890 - Other specified postprocedural states (ICD-10) History of appendectomy ?Z90.49 - Acquired absence of other specified parts of digestive tract (ICD- 10) Hx of tonsillectomy ?Z90.89 - Acquired absence of other organs (ICD-10) Social History Previous occupational history: Retired, , lives at home Meds Home Medications and Allergies Home Medications Medication Instructions Recorded Confirmed Type B complex with vitamin 1 cap PO DAILY 07/26/22 01/17/23 History W-iliveqvph-eaaw capsule Buderer compound cream topical DAILY 07/26/22 History acetaminophen 500 mg tablet 1,000 mg PO BID pain 07/26/22 01/17/23 History (Tylenol Extra Strength) aspirin 81 mg tablet,delayed 81 mg PO DAILY 07/26/22 01/17/23 History release blue emu 1 g topical DAILY 07/26/22 01/17/23 History calcium carb-vit D3-minerals 600 1 tab PO DAILY 07/26/22 01/17/23 History mg calcium-400 unit tablet capsaicin 0.025 % topical patch 1 patch topical DAILY pain 07/26/22 01/17/23 History (Salonpas-Hot) citalopram 10 mg tablet 10 mg PO DAILY 07/26/22 01/17/23 History cyclobenzaprine 5 mg tablet 5 mg PO BEDTIME PRN muscle spasm 07/26/22 01/17/23 History diclofenac sodium 75 mg 75 mg PO Q12H 07/26/22 01/17/23 History tablet,delayed release fexofenadine 180 mg tablet 180 mg PO DAILY 07/26/22 01/17/23 History (Benita Allergy) flaxseed oil 1,000 mg capsule 1,000 mg PO DAILY 07/26/22 01/17/23 History glucosamine 750 hd-qjugkx-yel 2-C 1 tab PO DAILY 07/26/22 01/17/23 History 30 mg-D3 1,000 unit-maida 1 mg tablet (Kvllphysatq-Nfljaliiozc-QRS + vitD) hydrocodone 5 mg-acetaminophen 325 1 tab PO BID PRN pain 07/26/22 01/17/23 History mg tablet isosorbide mononitrate 30 mg 30 mg PO DAILY 07/26/22 01/17/23 History tablet,extended release 24 hr levothyroxine 75 mcg capsule 75 mcg PO DAILY 07/26/22 01/17/23 History liothyronine 25 mcg tablet 25 mcg PO DAILY 07/26/22 01/17/23 History (Cytomel) melatonin 3 mg capsule 3 mg PO DAILY 07/26/22 01/17/23 History metoprolol succinate 50 mg 50 mg PO BID 07/26/22 01/17/23 History tablet,extended release 24 hr multivitamin 1 tab PO DAILY 07/26/22 01/17/23 History nitroglycerin 0.4 mg sublingual 0.4 mg sublingual Q5M 07/26/22 01/17/23 History tablet meclizine 12.5 mg tablet 25 mg (2 x 12.5 mg) PO Q6H PRN 08/10/22 01/17/23 Rx Vertigo #14 tabs meclizine 25 mg tablet 25 mg PO QID PRN dizzy #20 tabs 08/10/22 01/17/23 Rx hydrocodone 5 mg-acetaminophen 325 1 tab PO BID PRN pain #60 tabs 10/20/22 01/17/23 Rx mg tablet hydrocodone 5 mg-acetaminophen 325 1 tab PO BID PRN pain #60 tabs 11/22/22 01/17/23 Rx mg tablet hydrocodone 5 mg-acetaminophen 325 1 tab PO TID PRN pain #90 tabs 12/20/22 01/17/23 Rx mg tablet Allergies Allergy/AdvReac Type Severity Reaction Status Date / Time Penicillins Allergy Severe Hives Verified 01/17/23 10:48 codeine AdvReac Intermediate Dizziness Verified 01/17/23 10:48 fluconazole [From Diflucan] AdvReac Intermediate Verified 01/17/23 10:48 quinine [From Quinamm] AdvReac Mild Headache Verified 01/17/23 10:48 decongest multi-action AdvReac Mild Uncoded 01/17/23 10:48 Exam Constitutional Documenting provider has reviewed patient's vital signs: yes Common normals: no apparent distress, oriented x3, healthy appearing, alert and well nourished General appearance: cooperative HENMT Common normals: normocephalic, hearing grossly normal bilaterally and moist oral mucous membranes Head and scalp: normocephalic Eye Common normals: PERRL Pupil: PERRL Neck & C-Spine Common normals: full ROM General: normal visual inspection Chest Common normals: inspection of chest normal Respiratory Common normals: normal respiratory effort, no retractions and no use of accessory muscles Back & Pelvis Lumbar spine/lower back: ROM limited, pain with ROM and straight leg raise negative bilaterally Sacroiliac joints: SI joint(s) abnormal (mild pain with thigh thrust, fabersrose maryenslens right, improved) Extremity Common normals: normal to inspection Right lower extremity: hip joint Other: no pain with internal and external rotation of right hip Neuro Common normals: oriented x3, CN's II-XII intact bilaterally, moves all extremities, no focal motor deficits, no sensory deficits noted and deep tendon reflexes 2+ bilaterally Sensorium/orientation: alert Gait (neuro): antalgic and assistive device used walker Motor exam: strength 5/5 throughout and no movement abnormalities noted Psych Common normals: mental status grossly normal, thought process normal, cooperative, affect normal, speech normal and activity/motor behavior normal Speech: normal speech Thought process: normal thought process Results Additional Findings Additional findings: I have checked an [place] report on this patient today and there are no aberrancies noted in the prescribing history.?? A drug screen was completed and reviewed within the last year, and if there has not been a drug screen completed we ordered one today to monitor higher risk, state monitored pain medication use. As part of providing excellent, safe, comprehensive care, the following was completed at our patient's visit: 1. A medication reconciliation and review to ensure accurate knowledge of current/active medications, including asking our patients to inform us about any ccvx-rts-dtvfwqj medications or herbal remedies/nutritional supplements/alternative remedies. 2. A review to specifically ensure our patients have had annual screening for: elevated body mass index (BMI), tobacco use, screening for depression, and screening for unhealthy alcohol use. When screening is concerning, patients are provided with education and the specific recommendation to discuss the concerning health issue and treatment options with their primary care provider. Assessment and Plan Assessment and Plan (1) Chronic, continuous use of opioids: Assessment and Plan: I feel these medications are improving the patient's quality of life and allow them to tolerate activities of daily living as well as participate in recreational activity.? The patient does not report intolerable side effects. The patient is NOT opioid naive and non-pharmacologic and non-opioid treatment has failed to significantly relieve the patient's pain and improve functionality. The patient has a diagnosis that is related to a somatic or visceral pain etiology. ? ?? I reviewed with the patient the potential risks and side effects with the use of? opioid medications including but not limited to respiratory depression,? sedation, and even . I verified the patient has access to naloxone should? these effects occur. I advised the patient to avoid the use of any other? sedation substances including alcohol, THC, and benzodiazepines while? taking opioid medications due to the risk of compounding side effects and? detrimental outcomes. I reviewed the [employer], pain treatment agreement, urine? drug screen, and opioid start talking forms. The patient was advised to let? their family know they had Naloxone in case they would need to administer? the medication.? ?? A drug screen was completed within the last year, and no aberrancies were noted regarding their use of controlled substances. The patient understands they are subject to the terms and conditions of the pain contract that they have signed. ? ?? I have checked an [place] report on this patient today and there are no aberrancies noted in the prescribing history.? (2) Greater trochanteric bursitis: Qualifiers: Laterality: right Qualified Code(s): M70.61 - Trochanteric bursitis, right hip (3) Sacroiliitis: (4) Lumbar degenerative disc disease: (5) Hypertension: Assessment and Plan: Blood pressure is elevated today. No signs or symptoms of ND/CVA including chest pain, SOB, left sided acute neck, arm, or jaw pain (separate from chronic pain complaint), diaphoresis, facial drooping, new acute neuro changes in both upper and lower extremities (other than those mentioned in the note above). Recommend follow up with PCP for further evaluation and treatment.? Qualifiers: Hypertension type: unspecified Qualified Code(s): I10 - Essential (primary) hypertension (6) Osteoarthritis: Qualifiers: Osteoarthritis location: multiple joints Osteoarthritis type: unspecified Qualified Code(s): M15.9 - Polyosteoarthritis, unspecified Plan decrease diclofenac 75mg BID PRN (typically takes BID) to 1/2 tablets BID PRN. Discussed risks of chronic NSAIDs and my concerns with her elevated BP. She will follow up with PCP continue current medications f/u 3 months for medication management
--- NOTE | 2023-01-27 16:05 | PM.CN ---
Consult Note: HPI Data of Consult Requesting Physician: Vivian Meza NP Primary Care Provider: Luis Rogers MD Consult Narrative cc:: CC: Vivian Meza NP PFSH PFSH Medical History Closed fracture of coccyx ?S32.2XXA - Fracture of coccyx, initial encounter for closed fracture (ICD-10) Dizziness ?R42 - Dizziness and giddiness (ICD-10) Generalized weakness ?R53.1 - Weakness (ICD-10) H/O pyelonephritis ?Z87.448 - Personal history of other diseases of urinary system (ICD-10) Osteoarthritis ?M19.90 - Unspecified osteoarthritis, unspecified site (ICD-10) Syncope ?R55 - Syncope and collapse (ICD-10) TIA (transient ischemic attack) ?G45.9 - Transient cerebral ischemic attack, unspecified (ICD-10) Surgical History H/O bladder repair surgery ?Z98.890 - Other specified postprocedural states (ICD-10) H/O breast surgery ?Z98.890 - Other specified postprocedural states (ICD-10) H/O knee surgery ?Z98.890 - Other specified postprocedural states (ICD-10) H/O foot surgery ?Z98.890 - Other specified postprocedural states (ICD-10) History of right knee joint replacement ?Z96.651 - Presence of right artificial knee joint (ICD-10) History of YAG laser capsulotomy of lens ?Z98.49 - Cataract extraction status, unspecified eye (ICD-10) Hx laparoscopic cholecystectomy ?Z90.49 - Acquired absence of other specified parts of digestive tract (ICD-10) H/O: hysterectomy ?Z90.710 - Acquired absence of both cervix and uterus (ICD-10) History of arthroscopic knee surgery ?Z98.890 - Other specified postprocedural states (ICD-10) H/O discectomy ?Z98.890 - Other specified postprocedural states (ICD-10) H/O dilation and curettage ?Z98.890 - Other specified postprocedural states (ICD-10) History of appendectomy ?Z90.49 - Acquired absence of other specified parts of digestive tract (ICD-10) Hx of tonsillectomy ?Z90.89 - Acquired absence of other organs (ICD-10) Social History Previous occupational history: Retired, , lives at home Meds Home Medications and Allergies Home Medications Medication Instructions Recorded Confirmed Type B complex with vitamin 1 cap PO DAILY 07/26/22 01/17/23 History M-jpkufhykz-yhjl capsule Buderer compound cream topical DAILY 07/26/22 History acetaminophen 500 mg tablet 1,000 mg PO BID pain 07/26/22 01/17/23 History (Tylenol Extra Strength) aspirin 81 mg tablet,delayed 81 mg PO DAILY 07/26/22 01/17/23 History release blue emu 1 g topical DAILY 07/26/22 01/17/23 History calcium carb-vit D3-minerals 600 1 tab PO DAILY 07/26/22 01/17/23 History mg calcium-400 unit tablet capsaicin 0.025 % topical patch 1 patch topical DAILY pain 07/26/22 01/17/23 History (Salonpas-Hot) citalopram 10 mg tablet 10 mg PO DAILY 07/26/22 01/17/23 History cyclobenzaprine 5 mg tablet 5 mg PO BEDTIME PRN muscle spasm 07/26/22 01/17/23 History diclofenac sodium 75 mg 75 mg PO Q12H 07/26/22 01/17/23 History tablet,delayed release fexofenadine 180 mg tablet 180 mg PO DAILY 07/26/22 01/17/23 History (Benita Allergy) flaxseed oil 1,000 mg capsule 1,000 mg PO DAILY 07/26/22 01/17/23 History glucosamine 750 fq-oeowex-txn 2-C 1 tab PO DAILY 07/26/22 01/17/23 History 30 mg-D3 1,000 unit-miada 1 mg tablet (Ewsfqxzrkgy-Zogifdiahuc-YIT + vitD) hydrocodone 5 mg-acetaminophen 325 1 tab PO BID PRN pain 07/26/22 01/17/23 History mg tablet isosorbide mononitrate 30 mg 30 mg PO DAILY 07/26/22 01/17/23 History tablet,extended release 24 hr levothyroxine 75 mcg capsule 75 mcg PO DAILY 07/26/22 01/17/23 History liothyronine 25 mcg tablet 25 mcg PO DAILY 07/26/22 01/17/23 History (Cytomel) melatonin 3 mg capsule 3 mg PO DAILY 07/26/22 01/17/23 History metoprolol succinate 50 mg 50 mg PO BID 07/26/22 01/17/23 History tablet,extended release 24 hr multivitamin 1 tab PO DAILY 07/26/22 01/17/23 History nitroglycerin 0.4 mg sublingual 0.4 mg sublingual Q5M 07/26/22 01/17/23 History tablet meclizine 12.5 mg tablet 25 mg (2 x 12.5 mg) PO Q6H PRN 08/10/22 01/17/23 Rx Vertigo #14 tabs meclizine 25 mg tablet 25 mg PO QID PRN dizzy #20 tabs 08/10/22 01/17/23 Rx hydrocodone 5 mg-acetaminophen 325 1 tab PO BID PRN pain #60 tabs 10/20/22 01/17/23 Rx mg tablet hydrocodone 5 mg-acetaminophen 325 1 tab PO BID PRN pain #60 tabs 11/22/22 01/17/23 Rx mg tablet hydrocodone 5 mg-acetaminophen 325 1 tab PO TID PRN pain #90 tabs 12/20/22 01/17/23 Rx mg tablet Allergies Allergy/AdvReac Type Severity Reaction Status Date / Time Penicillins Allergy Severe Hives Verified 01/17/23 10:48 codeine AdvReac Intermediate Dizziness Verified 01/17/23 10:48 fluconazole [From Diflucan] AdvReac Intermediate Verified 01/17/23 10:48 quinine [From Quinamm] AdvReac Mild Headache Verified 01/17/23 10:48 decongest multi-action AdvReac Mild Uncoded 01/17/23 10:48 Assessment and Plan Assessment and Plan (1) Chronic, continuous use of opioids: Assessment and Plan: I feel these medications are improving the patient's quality of life and allow them to tolerate activities of daily living as well as participate in recreational activity.? The patient does not report intolerable side effects. The patient is NOT opioid naive and non-pharmacologic and non-opioid treatment has failed to significantly relieve the patient's pain and improve functionality. The patient has a diagnosis that is related to a somatic or visceral pain etiology. ? ?? I reviewed with the patient the potential risks and side effects with the use of? opioid medications including but not limited to respiratory depression,? sedation, and even . I verified the patient has access to naloxone should? these effects occur. I advised the patient to avoid the use of any other? sedation substances including alcohol, THC, and benzodiazepines while? taking opioid medications due to the risk of compounding side effects and? detrimental outcomes. I reviewed the [employer]MIT [employer]CH[employer]ICIAN, pain treatment agreement, urine? drug screen, and opioid start talking forms. The patient was advised to let? their family know they had Naloxone in case they would need to administer? the medication.? ?? A drug screen was completed within the last year, and no aberrancies were noted regarding their use of controlled substances. The patient understands they are subject to the terms and conditions of the pain contract that they have signed. ? ?? I have checked an [place] report on this patient today and there are no aberrancies noted in the prescribing history.? (2) Greater trochanteric bursitis: Qualifiers: Laterality: right Qualified Code(s): M70.61 - Trochanteric bursitis, right hip (3) Sacroiliitis: (4) Lumbar degenerative disc disease: (5) Hypertension: Assessment and Plan: Blood pressure is elevated today. No signs or symptoms of TX/CVA including chest pain, SOB, left sided acute neck, arm, or jaw pain (separate from chronic pain complaint), diaphoresis, facial drooping, new acute neuro changes in both upper and lower extremities (other than those mentioned in the note above). Recommend follow up with PCP for further evaluation and treatment.? Qualifiers: Hypertension type: unspecified Qualified Code(s): I10 - Essential (primary) hypertension (6) Osteoarthritis: Qualifiers: Osteoarthritis location: multiple joints Osteoarthritis type: unspecified Qualified Code(s): M15.9 - Polyosteoarthritis, unspecified Plan decrease diclofenac 75mg BID PRN (typically takes BID) to 1/2 tablets BID PRN. Discussed risks of chronic NSAIDs and my concerns with her elevated BP. She will follow up with PCP continue current medications f/u 3 months for medication management
== END 2023-01-27 14:41 ==
LOC: PM 14:41
PROVIDERS: PCP Family Medicine; Visit Provider Nurse Practitioner
DX: Z79.891 Long term (current) use of opiate analgesic (principal); M46.1 Sacroiliitis, not elsewhere classified; M51.36 Other intervertebral disc degeneration, lumbar region; I10 Essential (primary) hypertension; M19.90 Unspecified osteoarthritis, unspecified site
CPT/HCPCS: G0463

== ENCOUNTER 2023-04-04 11:57 | Outpatient (OUT) | payer MEDICARE, SELFPAY ==
--- NOTE | 2023-04-04 12:00 | XR_ITS ---
The [address] [address] Patient Name: KARINA CORMIER MRN: [id number] date: 1940 Sex: F Assigned Patient Location: [facility] Current Patient Location: [facility] Accession/Order Number: [id number] Exam Date: 04/04/2023 12:07 Report Date: 04/04/2023 15:15 At the request of: GALINA PALMER Procedure: XR hip RT min 2V PROCEDURE: XR hip RT min 2V COMPARISON: 12/31/2022 HISTORY: hypothyroidism E03.9 FINDINGS: BONES:No acute fracture or dislocation. Sclerosis in the femoral head appears stable. Moderate degenerative changes with joint space narrowing marginal osteophyte formation. Moderate sclerosis of the right sacroiliac joint SOFT TISSUES:Negative. No visible soft tissue swelling. EFFUSION:None visible. OTHER: Negative. XR/XR hip RT min 2V IMPRESSION: Degenerative changes No acute fracture Electronically authenticated by: HERMES MENDOZA Date: 04/04/2023 15:15
--- OUTSIDE RECORDS SUMMARY | 2023-04-04 12:02 | XMS_ITS | CCD ---
Author Name Unknown Address [facility] [address] [place] [address] Organization [facility] Care Team Providers Care Elevator Repairer Apprentice Name Role Phone PHYSICIAN, DEFAULT Unavailable Unavailable PHYSICIAN, DEFAULT Unavailable Unavailable Haley Matos DO, Arsh Frey Unavailable Galina Rogers MD Primary Care Provider [phone] Lakshmipathy, Narendranath Unavailable Haley Matos DO, George Cajetan Unavailable ESTELA ., DR MOJICA Primary Care Unavailable HOY ., DR MOJICA Attending Unavailable HOY ., DR MOJICA Consulting Unavailable HOY ., DR MOJICA Admitting Unavailable LAKSHMIPATHY ., NARROSA Consulting Laura vailable LAKSHMIPATHY ., NARDALLASATH Admitting Laura vailable LAKSHMIPATHY ., PORSHA Attending Laura vailable HOY ., DR MOJICA Primary Care Unavailable BECKWITH ., DR NIKO Austin Consulting Unavailable BECKWITH ., DR NIKO Austin Admitting Unavailable BECKWITH ., DR NIKO Austin Attending Unavailable HOAshlie ., DR MOJICA Primary Care Unavailable NATI FARAH Consulting Unavailable HOY ., DR MOJICA Primary Care Unavailable HOY ., DR MOJICA Attending Unavailable HOY ., DR MOJICA Consulting Unavailable HOY ., DR MOJICA Admitting Unavailable WEST, DR HERMES Jean Baptiste Consulting Unavailable PRADEEPY ., DR MOJICA Primary Care Unavailable HOY ., DR MOJICA Attending Unavailable HOY ., DR MOJICA Consulting Unavailable HOY ., DR MOJICA Admitting Unavailable HOY ., DR MOJICA Primary Care Unavailable NOEMI HAWK Consulting Unavailable BECKWITH ., DR NIKO Austin Attending Unavailable BECKWITH ., DR NIKO Austin Admitting Unavailable LAKSHMIPATHY ., NARENDLEILA Consulting Laura vailable LAKSHMIPATHY ., NARENDRANATH Admitting Laura vailable LAKSHMIPATHY ., NARENDRANATH Attending Laura vailable HOY ., DR MOJICA Primary Care Unavailable HOY ., DR MOJICA Primary Care Unavailable SEQUEIRA ., NOEMI Consulting Unavailable BECKWITH ., DR NIKO Austin Attending Unavailable BECKWITH ., DR NIKO Austin Admitting Unavailable HOY ., DR MOJICA Primary Care Unavailable BECKWITH ., DR NIKO Austin Attending Unavailable BECKWITH ., DR NIKO Austin Consulting Unavailable BECKWITH ., DR NIKO Austin Admitting Unavailable SEQUEIRA ., NOEMI Consulting Unavailable BECKWITH ., DR NIKO Austin Attending Unavailable BECKWITH ., DR NIKO Austin Admitting Unavailable HOY ., DR MOJICA Primary Care Unavailable BECKWITH ., DR NIKO Austin Attending Unavailable BECKWITH ., DR NIKO Austin Consulting Unavailable BECKWITH ., DR NIKO Austin Admitting Unavailable HOY ., DR MOJICA Primary Care Unavailable SEQUEIRA ., NOEMI Consulting Unavailable BECKWITH ., DR NIKO Austin Attending Unavailable BECKWITH ., DR NIKO Austin Admitting Unavailable HOY ., DR MOJICA Primary Care Unavailable LAKSHMIPATHY ., NARENDRANATH Admitting Laura vailable LAKSHMIPATHY ., NARENDRANATH Attending Laura vailable BRIDGER PAIZ Consulting Unavailable HOY ., DR MOJICA Primary Care Unavailable LAKSHMIPATHY ., NARENDLEILA Consulting Laura vailable LAKSHMIPATHY ., NARENDRANATH Admitting Laura vailable LAKSHMIPATHY ., NARENDRANATH Attending Laura vailable LAKSHMIPATHY ., NARENDLEILA Consulting Laura vailable HOY ., DR MOJICA Primary Care Unavailable LAKSHMIPATHY ., NARENDRANATH Admitting Laura vailable LAKSHMIPATHY ., NARENDRANATH Attending Laura vailable HALKER .CLAUDIO Consulting Unavailable HOY ., DR MOJICA Primary Care Unavailable HOY ., DR MOJICA Attending Unavailable HOY ., DR MOJICA Consulting Unavailable HOY ., DR MOJICA Primary Care Unavailable HOY ., DR MOJICA Admitting Unavailable HOY ., DR MOJICA Primary Care Unavailable HOY ., DR MOJICA Attending Unavailable HOY ., DR MOJICA Consulting Unavailable HOY ., DR MOJICA Admitting Unavailable SANTOS ., MR CHANTALE Consulting Unavailable FRANCES, DR PEPE De La Rosa Attending Unavailabl e REINECK, DR PEPE De La Rosa Admitting Unavailabl e HOY ., DR MOJICA Primary Care Unavailable EMILY NAVARRETE Consulting Unavailable MELO ., ROGE Admitting Unavailable MELO ., ROGE Attending Unavailable DORY, DR KRANTHI Gaona Consulting Unavailable HOY ., DR MOJICA Primary Care Unavailable MELO ., ROGE Consulting Unavailable BECKWITH ., DR NIKO Austin Attending Unavailable BECKWITH ., DR NIKO Austin Consulting Unavailable BECKWITH ., DR NIKO Austin Admitting Unavailable HOY ., DR MOJICA Primary Care Unavailable MELO ., ROGE Admitting Unavailable MELO ., ROGE Attending Unavailable HOY ., DR MOJICA Primary Care Unavailable DORY, DR KRANTHI Gaona Consulting Unavailable MELO ., ROGE Consulting Unavailable FAWWAD, SEGURA H Admitting Unavailable FAWSHAIKH LUA H Attending Unavailable HOAshlie ., DR MOJICA Primary Care Unavailable SAMSA ., BALTAZAR Consulting Unavailable MELO ., ROGE Consulting Unavailable FAWWAD, SEGURA H Consulting Unavailable LINARES, JARET Consulting Unavailable AA, AA Consulting Unavailable PRADEEPY ., DR MOJICA Primary Care Unavailable HOY ., DR MOJICA Attending Unavailable HOY ., DR MOJICA Admitting Unavailable HOY ., DR MOJICA Primary Care Unavailable HOY ., DR MOJICA Admitting Unavailable HOY ., DR MOJICA Attending Unavailable HOY ., DR MOJICA Consulting Unavailable [place], DR HERMES Jean Baptiste Consulting Unavailable BECKWITH ., DR NIKO Austin Attending Unavailable BECKWITH ., DR NIKO Austin Admitting Unavailable SEQUEIRA .NOEMI Consulting Unavailable HOAshlie ., DR MOJICA Primary Care Unavailable Haley Matos DO, George Cajetan Unavailable Galina Rogers MD Unavailable GALINA ROGERS Primary Care Unavailable CAROLYN VANEGAS Attending Unavailable MARTY DOZIER Attending Unavailable Ishmael MEANS, Lyn Adams Attending Unavailable Ishmael MEANS, Andrius Adams Attending Unavailable Ishmael MEANS, Andrius Adams Attending Unavailable Ishmael MEANS, Andantoni Adams Attending Unavailable Allergies Allergy Classification Reported Allergen(s) Allergy Type Date of Onset Reaction(s) Facility (4 sources) Codeine; Translations: [CODEINE] Drug Allergy 3 Unknown [facility] (4 sources) Penicillins; Translations: [PENICILLINS] Drug Allergy 3 Unknown [facility] (4 sources) pregabalin; Translations: [PREGABALIN] Drug Allergy 3 Intolerance [facility] Work Phone: (4 sources) Propoxyphene; Translations: [PROPOXYPHENE] Drug Allergy 3 Rash, Unknown [facility] (4 sources) quiNINE; Translations: [QUINAMM] Drug Allergy 3 GI Upset [facility] (5 sources) Decongest Multi-Action; Translations: [Decongest Multi-Action] Drug Allergy 3 Other: See Comments [facility] (1 source) Acetaminophen / HYDROcodone Drug Allergy [facility] (2 sources) Codeine Drug Allergy 3 [facility] (1 source) Fluconazole Drug Allergy [facility] (2 sources) Penicillins Drug allergy (disorder) 3 [facility] (1 source) pregabalin Drug Allergy [facility] (2 sources) Propoxyphene Drug Allergy [facility] (1 source) quiNINE Drug Allergy [facility] Medications Completed/Discontinued Medications Medication Drug Class(es) Dates Sig (Normalized) Sig (Original) acetaminophen 500 mg oral tablet (3 sources) take 1 tablet by mouth twice daily acetaminophen (TYLENOL EXTRA STRENGTH) 500 mg tablet Take 500 mg by mouth twice daily. 0 Active Comment on above: Take 500 mg by mouth twice daily. acetaminophen 325 mg / HYDROcodone bitartrate 5 mg oral tablet (3 sources) Opioid Agonist Start: 3 take 1 tablet by mouth every twelve hours as needed HYDROcodone-acetaminop hen (NORCO) 5-325 mg per tablet Take 1 tablet by mouth twice daily as needed. 0 04/29/2022 Active Comment on above: Take 1 tablet by juan twice daily as needed. aspirin 81 mg delayed release oral tablet (3 sources) Platelet Aggregation Inhibitor, Nonsteroidal Anti-inflammator y Drug take 1 tablet by mouth once daily aspirin, enteric coated (ASPIRIN, ENTERIC COATED) 81 mg EC tablet Take 81 mg by mouth once daily. 0 Active Comment on above: Take 81 mg by mouth once daily. Calcium Carbonate / vitamin D3 (3 sources) calcium carbonate/vitamin D3 (CALTRATE 600 + D ORAL) Take by mouth twice daily. 0 Active Comment on above: Take by mouth twice daily. capsaicin 0.95862 mg/mg medicated patch (3 sources) Capsaicin (SALONPAS-HOT) 0.025 % ptmd Apply to affected area. 0 Active Comment on above: Apply to affected ar ea. citalopram 10 mg oral tablet (3 sources) Serotonin Reuptake Inhibitor Start: 3 take 1 tablet by mouth once daily citalopram hydrobromide (CELEXA) 10 mg tablet Take 10 mg by mouth once daily. Treat Depression 0 03/01/2022 Active Comment on above: Take 10 mg by mouth once daily. Treat Depression cyclobenzaprine hydrochloride 5 mg oral tablet (3 sources) Muscle Relaxant take 1 tablet by mouth every twelve hours as needed cyclobenzaprine (FLEXERIL) 5 mg tablet Take 5 mg by mouth twice daily as needed for muscle spasm. 0 Active Comment on above: Take 5 mg by mouth t wice daily as needed for muscle spasm. diclofenac sodium 75 mg delayed release oral tablet (3 sources) Nonsteroidal Anti-inflammator y Drug Start: 3 take 1 tablet by mouth twice daily for pain diclofenac, EC, (VOLTAREN) 75 mg EC tablet Take 75 mg by mouth twice daily. For Arthritis pain 0 03/24/2022 Active Comment on above: Take 75 mg by mouth twice daily. For Arthritis pain fexofenadine hydrochloride 180 mg oral tablet (3 sources) Histamine-1 Receptor Antagonist take 1 tablet by mouth once daily fexofenadine (MALORIE ALLERGY) 180 mg tablet Take 180 mg by mouth once daily. 0 Active Comment on above: Take 180 mg by mouth once daily. glucosamine HCl/S-Adenosylmet (TRIPLE FLEX MOOD & JOINT JESSY-E ORAL) (3 sources) take 1 tablet by mouth twice daily in the morning glucosamine HCl/S-Adenosylmet (TRIPLE FLEX MOOD & JOINT JESSY-E ORAL) Take by mouth twice daily. Tablet contains Glucosamine 1500 mg Chodroitin 800 mg MSM 750 mg 1 tablet twice daily am and pm 0 Active Comment on above: Take by mouth twice daily. Tablet contains Glucosamine 1500 mg Chodroitin 800 mg MSM 750 mg 1 tablet twice daily am and pm hydroCHLOROthiazide 25 mg oral tablet (3 sources) Thiazide Diuretic take 1 tablet by mouth once daily hydroCHLOROthiazide 25 mg tablet Take 25 mg by mouth once daily. 0 Active Comment on above: Take 25 mg by mouth once daily. 24 hr isosorbide mononitrate 30 mg extended release oral tablet (3 sources) Nitrate Vasodilator Start: 3 take 1 tablet by mouth once daily in the morning isosorbide mononitrate ER (IMDUR) 30 mg 24 hr tablet Take 30 mg by mouth once daily. 1 tablet daily in the AM on an empty stomach Treat for Angina 0 03/21/2022 Active Comment on above: Take 30 mg by mouth once daily. 1 tablet daily in the AM on an empty stomach Treat for Angina levothyroxine sodium 0.075 mg oral tablet (3 sources) l-Thyroxine Start: 3 take 1 tablet by mouth once daily in the morning levothyroxine (SYNTHROID) 75 mcg tablet Take 75 mcg by mouth once daily. Patient takes 1 tablet in the AM 0 03/18/2022 Active Comment on above: Take 75 mcg by mouth once daily. Patient takes 1 tablet in the AM linseed oil 1000 mg oral capsule (3 sources) take 1 capsule by mouth once daily Flaxseed Oil (OMEGA-3 FLAXSEED OIL) 1,000 mg cap Take 1,000 mg by mouth once daily. 0 Active Comment on above: Take 1,000 mg by juan th once daily. liothyronine sodium 0.025 mg oral tablet (3 sources) l-Triiodothyroni ne take 1 tablet by mouth once daily liothyronine (CYTOMEL) 25 mcg tablet Take 25 mcg by mouth once daily. 0 Active Comment on above: Take 25 mcg by mouth once daily. magnesium amino acid chelate (3 sources) take 250 mg by mouth once daily at bedtime MAGNESIUM AMINO ACID CHELATE ORAL Take 250 mg by mouth once daily. At bedtime 0 Active Comment on above: Take 250 mg by mouth once daily. At bedtime melatonin 3 mg oral capsule (3 sources) take 1 capsule by mouth once daily at bedtime melatonin 3 mg capsules Take 3 mg by mouth daily at bedtime. 0 Active Comment on above: Take 3 mg by mouth d aily at bedtime. 24 hr metoprolol succinate 50 mg extended release oral tablet (3 sources) beta-Adrenergic Moshe Start: 3 take 1 tablet by mouth twice daily metoprolol succinate ER (TOPROL XL) 50 mg 24 hr tablet Take 50 mg by mouth twice daily. 0 03/24/2022 Active Comment on above: Take 50 mg by mouth twice daily. MULTIVITAMIN ORAL (3 sources) MULTIVITAMIN ORA L Take by mouth. Equate with Lycopene Complete Multivitamin 0 Active Comment on above: Take by mouth. Equat e with Lycopene Complete Multivitamin Nitroglycerin (3 sources) Nitrate Vasodilator take 1 tablet by mouth three times daily as needed NITROGLYCERIN ORAL Take 0.4 mg by mouth three times daily. 1 tablet by mouth 3x daily As needed for chest pain 0 Active Comment on above: Take 0.4 mg by mouth three times daily. 1 tablet by mouth 3x daily As needed for chest pain Problems Active Problems Problem Classification Problem Date Documented Date Episodic/Chronic Blindness and vision defects (1 source) Unspecified visual loss; Translations: [UNSPECIFIED VISUAL LOSS] Onset: 04-06-2022 Chronic Congestive heart failure; nonhypertensive (1 source) Unspecified diastolic (congestive) heart failure; Translations: [UNSPECIFIED DIASTOLIC HEART FAILURE] Onset: 12-16-2021 Chronic Disorders of lipid metabolism (1 source) Hyperlipidemia, unspecified; Translations: [HYPERLIPIDEMIA UNSPECIFIED] Onset: 12-16-2021 Chronic Essential hypertension (1 source) Essential (primary) hypertension; Translations: [ESSENTIAL PRIMARY HYPERTENSION] Onset: 04-06-2022 Chronic Hypertension with complications and secondary hypertension (4 sources) Hypertensive heart disease with heart failure; Translations: [HTN HEART DISEASE W/HEART FAIL] Onset: 12-11-2021 Chronic Nutritional deficiencies (1 source) Vitamin D deficiency, unspecified; Translations: [VITAMIN D DEFICIENCY UNSPECIFIED] Onset: 12-16-2021 Chronic Osteoarthritis (2 sources) Bilateral primary osteoarthritis of hip; Translations: [Unspecified osteoarthritis, unspecified site] Onset: 04-06-2022 Chronic Other acquired deformities (1 source) Scoliosis of lumbar spine; Translations: [Scoliosis, unspecified] Chronic Other acquired deformities (3 sources) Scoliosis deformity of spine; Translations: [Scoliosis, unspecified] Onset: 04-11-2022 05-14-2022 Chronic Other acquired deformities (1 source) Scoliosis, unspecified; Translations: [SCOLIOSIS UNSPECIFIED] Onset: 04-11-2022 Chronic Other acquired deformities (1 source) Lumbar spondylolisthesis; Translations: [Spondylolisthesis, lumbar region] Episodic Other bone disease and musculoskeletal deformities (1 source) Idiopathic scoliosis of lumbar spine; Translations: [Other idiopathic scoliosis, lumbar region] Chronic Other connective tissue disease (1 source) Presence of right artificial knee joint; Translations: [PRESENCE RT ARTIFICIAL KNEE JOINT] Onset: 04-06-2022 Chronic Other connective tissue disease (5 sources) Other muscle spasm; Translations: [OTHER MUSCLE SPASM] Onset: 01-28-2022 Episodic Other nervous system disorders (4 sources) Other specified mononeuropathies of right lower limb; Translations: [OTH SPEC MONONEUROPATH RT LOW LIMB] Onset: 06-22-2022 Chronic Other nervous system disorders (4 sources) Other specified mononeuropathies; Translations: [OTHER SPECIFIED MONONEUROPATHIES] Onset: 06-15-2022 Chronic Other nervous system disorders (1 source) Other chronic pain; Translations: [OTHER CHRONIC PAIN] Onset: 05-16-2022 Chronic Other non-traumatic joint disorders (5 sources) Pain in right hip; Translations: [PAIN IN RIGHT HIP] Onset: 05-13-2022 Episodic Other nutritional; endocrine; and metabolic disorders (2 sources) Obese class I; Translations: [Obesity, unspecified] Onset: 09-21-2022 09-21-2022 Chronic Spondylosis; intervertebral disc disorders; other back problems (19 sources) Lumbar spondylosis; Translations: [Spondylosis without myelopathy or radiculopathy, lumbar region] Onset: 10-02-2021 Chronic Spondylosis; intervertebral disc disorders; other back problems (13 sources) Chronic low back pain; Translations: [Lumbago with sciatica, right side] Onset: 10-02-2021 Episodic Thyroid disorders (3 sources) Hypothyroidism, unspecified; Translations: [Thyrotoxicosis, unspecified without thyrotoxic crisis or storm] Onset: 12-16-2021 Chronic Unclassified (4 sources) LOW BACK PAIN, UNSPECIFIED; Translations: [LOW BACK PAIN, UNSPECIFIED] Onset: 04-06-2022 Unclassified (1 source) PERSONAL HISTORY OF COVID-19; Translations: [PERSONAL HISTORY OF COVID-19] Onset: 11-19-2021 Unclassified (1 source) CONTACT W/AND (SUSP) EXPOS COVID-19; Translations: [CONTACT W/AND (SUSP) EXPOS COVID-19] Onset: 09-14-2021 Viral infection (1 source) COVID-19; Translations: [COVID-19] Onset: 11-13-2021 Past or Other Problems Problem Classification Problem Date Documented Da te Episodic/Chronic Conditions associated with dizziness or vertigo (4 sources) Dizziness and giddiness; Translations: [DIZZINESS AND GIDDINESS] Onset: 11-11-2021 Episodic Deficiency and other anemia (1 source) Anemia, unspecified; Translations: [ANEMIA UNSPECIFIED] Onset: 12-16-2021 Episodic Diabetes mellitus without complication (1 source) Other abnormal glucose; Translations: [OTHER ABNORMAL GLUCOSE] Onset: 12-16-2021 Episodic Fluid and electrolyte disorders (8 sources) Dehydration; Translations: [Hypo-osmolality and hyponatremia] Onset: 11-15-2021 Episodic Genitourinary symptoms and ill-defined conditions (6 sources) Dysuria; Translations: [Other abnormal findings in urine] Onset: 11-19-2021 Episodic Malaise and fatigue (4 sources) Weakness; Translations: [WEAKNESS] Onset: 09-13-2021 Episodic Nausea and vomiting (1 source) Nausea with vomiting, unspecified; Translations: [NAUSEA WITH VOMITING UNSPECIFIED] Onset: 11-19-2021 Episodic Nonspecific chest pain (1 source) Chest pain, unspecified; Translations: [CHEST PAIN UNSPECIFIED] Onset: 11-13-2021 Episodic Other aftercare (1 source) 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; Translations: [[facility] CURRENT USE OF ASPIRIN] Onset: 04-06-2022 Episodic Other aftercare (1 source) Other alf (current) drug therapy; Translations: [OTH CLINICAL ASSISTANT CURRENT DRUG THERAPY] Onset: 04-06-2022 Episodic Other bone disease and musculoskeletal deformities (1 source) Other specified disorders of bone density and structure, unspecified site; Translations: [OTH D/O BONE DEN STRUCT UNS SITE] Onset: 04-06-2022 Episodic Other circulatory disease (1 source) Personal history of transient ischemic attack (TIA), and cerebral infarction without residual deficits; Translations: [PERS HX TIA AND CI NO RESID DEFICIT] Onset: 11-19-2021 Episodic Other connective tissue disease (1 source) Sarcopenia; Translations: [SARCOPENIA] Onset: 04-11-2022 Episodic Other gastrointestinal disorders (1 source) Diarrhea, unspecified; Translations: [DIARRHEA UNSPECIFIED] Onset: 11-19-2021 Episodic Other lower respiratory disease (1 source) Chronic cough; Translations: [CHRONIC COUGH] Onset: 04-06-2022 Episodic Other non-traumatic joint disorders (5 sources) Pain in right knee; Translations: [PAIN IN RIGHT KNEE] Onset: 02-01-2022 Episodic Other screening for suspected conditions (not mental disorders or infectious disease) (4 sources) Encounter for screening mammogram for malignant neoplasm of breast; Translations: [ENC SCR MAMMO MALIG NEOPLASM BREAST] Onset: 11-25-2021 Episodic Residual codes; unclassified (1 source) Acquired absence of both cervix and uterus; Translations: [ACQUIRED ABSENCE BOTH CERVIX AND UTERUS] Onset: 04-06-2022 Episodic Residual codes; unclassified (1 source) Acquired absence of other specified parts of digestive tract; Translations: [ACQ ABSENCE OTH PART DIGESTV TRACT] Onset: 04-06-2022 Episodic Unclassified (1 source) LOW BACK PAIN, UNSPECIFIED; Translations: [LOW BACK PAIN, UNSPECIFIED] Onset: 04-06-2022 Results Test Name Value Interpretation Reference Range Facility [facility] 09-21-2022 CNOV Office Visit ([facility] ) ALEXA DELGADO ([id number]) 1940 F Date Time Provider Department 09/21/22 1:00 PM CAROLYN VANEGAS [facility] During your visit today, we recorded the following information about you: Pulse Blood pressure 67/minute 153/60 Carolyn Vanegas MD 09/21/2022 1:20 PM Signed SPINE SURGERY OUTPATIENT CONSULT SERVICE DATE: 09/21/2022 PCP: Galina Rogers MD REFERRING PROVIDER: Galina Rogers MD Consult requested for an opinion regarding the evaluation and treatment of back and leg pain. My final impression and recommendations will be communicated back to the requesting physician by way of the shared medical record or letter via US mail. SUBJECTIVE Alexa Delgado is a 82 year old female presenting with spouse. CHIEF COMPLAINT: back and leg pain HISTORY OF PRESENT ILLNESS: Many years of symptoms, getting progressively worse. Progressed from cane to walker. Very limited in walking. Can't do steps. Can't stand for periods of time. Feels bent over. Bad by the end of the day. Most of the pain is back pain and both hips. Sometimes goes down to knees or feet but not much. Has tried multiple interventions without much help. Urinates frequently at night. Had prior stroke as well. Lives with spouse. PRECIPITATING EVENT: None DURATION OF SYMPTOMS: Greater Than 1 Year DERMATOMAL DISTRIBUTION: Not applicable AMBULATORY STATUS: Impaired Home Distances ANTIPLATELET OR ANTICOAGULATION STATUS: No PREVIOUS SPINAL SURGERY: None ACTIVE PROBLEM LIST Scoliosis, Unspecified Spinal Stenosis, Lumbar Region With Neurogenic Claudication No past medical history on file. No past surgical history on file. No family history on file. Social History Tobacco Use Smoking status: Never Smokeless tobacco: Never Substance Use Topics Alcohol use: Never Drug use: Never ALLERGIES Allergen Reactions Codeine Unknown Penicillins Unknown Propoxyphene Rash, Unknown Headache Decongest Multi-Act* Other: See Comments Pregabalin Intolerance Dizziness Quinamm GI Upset MEDICATIONS: citalopram hydrobromide (CELEXA) 10 mg tablet Take 10 mg by mouth once daily. Treat Depression diclofenac, EC, (VOLTAREN) 75 mg EC tablet Take 75 mg by mouth twice daily. For Arthritis pain isosorbide mononitrate ER (IMDUR) 30 mg 24 hr tablet Take 30 mg by mouth once daily. 1 tablet daily in the AM on an empty stomach Treat for Angina levothyroxine (SYNTHROID) 75 mcg tablet Take 75 mcg by mouth once daily. Patient takes 1 tablet in the AM HYDROcodone-acetaminop hen (NORCO) 5-325 mg per tablet Take 1 tablet by mouth twice daily as needed. metoprolol succinate ER (TOPROL XL) 50 mg 24 hr tablet Take 50 mg by mouth twice daily. hydroCHLOROthiazide 25 mg tablet Take 25 mg by mouth once daily. liothyronine (CYTOMEL) 25 mcg tablet Take 25 mcg by mouth once daily. NITROGLYCERIN ORAL Take 0.4 mg by mouth three times daily. 1 tablet by mouth 3x daily As needed for chest pain cyclobenzaprine (FLEXERIL) 5 mg tablet Take 5 mg by mouth twice daily as needed for muscle spasm. aspirin, enteric coated (ASPIRIN, ENTERIC COATED) 81 mg EC tablet Take 81 mg by mouth once daily. MULTIVITAMIN ORAL Take by mouth. Equate with Lycopene Complete Multivitamin calcium carbonate/vitamin D3 (CALTRATE 600 + D ORAL) Take by mouth twice daily. glucosamine HCl/S-Adenosylmet (TRIPLE FLEX MOOD AND JOINT JESSY-E ORAL) Take by mouth twice daily. Tablet contains Glucosamine 1500 mg Chodroitin 800 mg MSM 750 mg 1 tablet twice daily am and pm Flaxseed Oil (OMEGA-3 FLAXSEED OIL) 1,000 mg cap Take 1,000 mg by mouth once daily. fexofenadine (MALORIE ALLERGY) 180 mg tablet Take 180 mg by mouth once daily. MAGNESIUM AMINO ACID CHELATE ORAL Take 250 mg by mouth once daily. At bedtime melatonin 3 mg capsules Take 3 mg by mouth daily at bedtime. acetaminophen (TYLENOL EXTRA STRENGTH) 500 mg tablet Take 500 mg by mouth twice daily. Capsaicin (SALONPAS-HOT) 0.025 % ptmd Apply to affected area. REVIEW OF SYSTEMS: GENERAL: No weight loss or malaise MUSCULOSKELETAL: Negative for joint pain, swelling or muscle pain NEURO: No history of headaches, syncope, paralysis, seizures or tremors Patient Entered Questionnaires Spine Questions 05/09/2022 Pain Location: Lower back Pain Duration: More than 5 years Pain over last 6 months: Every day or nearly every day in the past 6 months Symptoms from neck/cervical spine: Yes Employment Status: Retired Involved in law suit/legal claim: No Spine Red Flags 05/09/2022 Any type of cancer: No Unexplained fever: No Bowel or bladder disfunction: No Unintentional weight loss: No Osteoporosis: No Neck Questionnaires 05/09/2022 Benzel Modified ELOISA Score 10 (A lower score indicates increased pain and issues.) PROMIS Score Percentiles Physical Health 05/09/2022 Physical Function Percentile 2 (more content not included)... Normal [facility] XR LSPINE 2_3 VIEWSon 2022 XR LSPINE 2_3 VIEWS EXAMINATION: XR LSPI NE 2_3 VIEWS HISTORY: Lumbar spondylosis COMPARISON: No relevant comparison available. FINDINGS: BONES: No acute fracture or spondylolisthesis. Severe degenerative changes with joint space narrowing and endplate sclerosis and facet osteoarthropathy. 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 No paraspinous abnormality is seen. OTHER: Vascular calcifications IMPRESSION: Severe degenerative changes with rotatory dextroscoliosis Electronically authenticated by: HERMES MENDOZA Date: 2022-07-16 11:34 Normal [facility] CNOVon 05-14-2022 CNOV Office Visit (SPMESH ) ALEXA DELGADO ([id number]) 1940 F Date Time Provider Department 05/14/22 2:30 PM MARTY DOZIER [facility] During your visit today, we recorded the following information about you: Pulse Blood pressure Weight Height 72/minute 158/87 76.4 kg 1.524 m Marty Dozier DO 05/15/2022 10:02 PM Signed [facility] Neurological [facility] - Medical Spine Initial Exam SUBJECTIVE HISTORY OF PRESENT ILLNESS: Alexa Delgado is a 82 year old female who presents with a chief complaint of low back pain. Accompanied by her today. Recently treated in outside ED for severe right low back pain. CT abd/pelvis was negative for acute fractures. Was treated with fentanyl, prednisone, muscle relaxant and prescribed Tizanidine q8h. Patient had f/u with outside Pain Management, but has decided to come here for a second opinion regarding her chronic back pain. Patient reports pain across her lower back since she got out of high school. Has had lumbar disc surgery. H/o lumbar scoliosis. Patient had an episode 1 month ago of difficulty walking and noted pain in R>L low back. Upon examination she had pain right abdominal region and had a CT scan, but was only told about changes in her spine, no mention of fractures. 40-50% relief since right lumbar RFA 04/13/22. reports patient sleeps on right side in bed with head of bed elevated and he wonders if this is worse for her. Intermittent pain down RLE laterally to ankle. Ambulates with rollator. Denies bowel/bladder incontinence or saddle anesthesia. PAIN EVALUATION 05/09/20221952 Pain Level: 6 Pain Location: Back Description: Aching;Burning;Sharp;S hooting;Sore;Stabbing; Throbbing;Tingling Duration Units: Months Frequency: Continuous Intervention/Comfort measure: Medication;Reposition; Relaxation;Exercise;He at;Pillow support;Positioning;Desouza pport surface Comments: Spinal Injection, RF Ablation Pain Radiation: As above Aggravating Factors: Prolonged standing Transfers Turning/shifting in bed Alleviating Factors: Medications Pain Ratio: R>L low back Current Treatment: Medications Plano 5-325 mg BID - helps Diclofenac 75 mg BID - helps Tylenol 1000 mg BID - helps Flexeril 5-10 mg bedtime PRN - helps Citalopram Blue Emu - helps Lidocaine patch - helps Therapies Goes to therapy pool and does exercises twice weekly PT HEP for legs at home Prior Treatment: Medications Tizanidine Requip 0.25 mg bedtime Lyrica 25 mg bedtime Testosterone cypionate 75 mg for sarcopenia Prednisone 20 mg Compound cream (Gabapentin 10%, Ketoprofen 10%, Lidocaine 2%, Prilocaine 2%) Therapies PT in the past has helped, has not had since pandemic Prior spine interventions: Dr. Niko Beckwith -04/13/22: Right lumbar RFA L2, L3, L4, L5 - 40-50% relief per patient -02/09/22: Right knee genicular nerve block (medial and lateral superior, inferior medial) (Marcaine 0.125% and 4 mg Dexamethasone to all sites) - 100% relief x 24 hours, ongoing 60% relief as of 03/11/22 - Pt reports helped severe pain, but still has pain -01/28/22 Noemi Sequeira TOLL LINE INSPECTOR: BL Lumbar erector spinae TPI (0.125% Marcaine, 40 mg Kenalog, divided into 3 locations) - helped for 1 day -01/12/22: L2-3 ILESI (Depomedrol 120 mg, total volume 10 cc) - 75% relief x 2 days -May 2021 Cervical RFA - Upon 09/30/21 f/u Pt reported significant relief, but still achiness with extensive lateral rotation -06/02/21: Right C5, C6 C7 C8 MB RFA (80 degrees x 90 seconds) (0.125% Marcaine, Dexamethasone 4 mg, 0.25 cc into each site) -05/26/21: Left C5, C6 C7 C8 MB RFA (80 degrees x 90 seconds) (0.125% Marcaine, Dexamethasone 4 mg, 0.25 cc into each site) - Pt reported improvement of LUE radicular pain from 07/31 to 03/02 -04/21/21: BL C5, C6, C7, C8 MBB (0.125% Marcaine, Dexamethasone 4 mg) 0.25 cc per MB -03/17/21: BL C5, C6, C7, C8 MBB (0.125% Marcaine, Dexamethasone 4 mg) 0.25 cc per MB - 95% relief, able to do more activity including cooking/cleaning/ADLs - ongoing as of 04/17/21 -03/08/21 Noemi Sequeira TOLL LINE INSPECTOR: Left rhomboid TPI (0.125% Marcaine, 40 mg Kenalog) -02/03/21 LESI - moderate relief for 4 days Prior spine surgery: -2006 L4-5 Discectomy Previously treated by: -[facility], previously Dr. Niko Beckwith who is leaving the practice and going forward treatment will be with Dr. Porsha Garcia. Last visit 05/13/22 Dr. Garcia - Patient appears to have chronic pain secondary to residual neurogenic pain involving the right lateral cutaneous branch of the iliohypogastric and myofascial dysfunction. I could not appreciate any facet loading pain clinically on examination today. She has an evaluation at the [facility] tomorrow at the Spine Center. RECOMMENDATIONS: We will see the pat (more content not included)... Normal [facility] CULTURE URINEon 04-05-2022 CULTURE URINE Culture Observations : LIGHT GROWTH OF MIXED GENITAL ALANIS. NO POTENTIAL PATHOGENS SEEN. Normal [facility] Comment on above: Performed By: #### U RCX ####[facility] [address] [place] [address]Dr. Grace Abdul UA RANDOM W/MICROSCOPICon BACTERIA NONE SEEN Normal NONE SEEN [facility] Comment on above: Performed By: #### U AMIC ####[facility] [address]zq[address] [place] [address]Dr. Grace Abdul Bilirubin Ql (U) Negative Normal NEGATIVE [facility] Comment on above: Performed By: #### U AMIC ####[facility] [address] [place] [address]Dr. Grace Abdul CAST NONE SEEN Normal NONE SEEN [facility] Comment on above: Performed By: #### U AMIC ####[facility] [address] [place], [place] [address]Dr. Grace Abdul Clarity (U) CLEAR Normal CLEAR [facility] Comment on above: Performed By: #### U AMIC ####[facility] Apkminlbkq[address] [place], [place] [address]Dr. Grace Abdul Color (U) YELLOW Normal YELLOW [facility] Comment on above: Performed By: #### U AMIC ####[facility] Ezewcrdpmc[address] [place], [place] [address]Dr. Grace Abdul Crystals LM Nom (Urine sed) NONE SEEN Normal NONE SEEN [facility] Comment on above: Performed By: #### U AMIC ####[facility] Dqpueidbfa[address] [place], [place] [address]Dr. Grace Abdul Epithelial cells LM Ql (Urine sed) RARE Normal NONE SEEN /RARE [facility] Comment on above: Performed By: #### U AMIC ####[facility] Xxbjjrynra2[address] [place], [place] [address]Dr. Grace Abdul Glucose Ql (U) Negative Normal NEGATIVE The [facility] Comment on above: Performed By: #### U AMIC ####[facility] Mmmmffbjif[address] [place], [place] [address]Dr. Grace Abdul Hemoglobin Ql (U) MODERATE Abnormal NEGATIVE [facility] Comment on above: Performed By: #### U AMIC ####[facility] [address]zvdqofpr[address] [place], [place] [address]Dr. Grace Abdul Ketones Ql (U) TRACE Abnormal NEGATIVE [facility] Comment on above: Performed By: #### U AMIC ####[facility] [address] [place] [address]Dr. Grace Abdul LEUKOCYTES TRACE Abnormal NEGATIVE [facility] Comment on above: Performed By: #### U AMIC ####[facility] [address] [place] [address]Dr. Grace Abdul MUCOUS NONE SEEN Normal NONE SEEN [facility] Comment on above: Performed By: #### U AMIC ####[facility] Pnfsvthqoe[address] [place], [place] [address]Dr. Grace Abdul Nitrite Ql (U) Negative Normal NEGATIVE [facility] Comment on above: Performed By: #### U AMIC ####[facility] Kpkquqoaji[address] [place], [place] [address]Dr. Grace Abdul pH (U) 5.0 [pH] Normal 5-9 [facility] Comment on above: Performed By: #### U AMIC ####[facility] Yawbghplxl2[address] [place], [place] [address]Dr. Grace Abdul RBC 0-2 Normal 0-2 [facility] Comment on above: Performed By: #### U AMIC ####[facility] Aefppzgvsc[address] [place], [place] [address]Dr. Grace Abdul SPEC GRAVITY 1.015 Normal 1.005-<=1.025 [facility] Comment on above: Performed By: #### U AMIC ####[facility] Ddmbhkpdrx[address] [place], [place] [address]Dr. Grace Abdul UA PROTEIN Negative Normal NEGATIVE/ TRACE [facility] Comment on above: Performed By: #### U AMIC ####[facility] Chgcpsiaqk[address] [place], [place] [address]Dr. Grace Abdul Urobilinogen Qn (U) 0.2 {Ashley'U}/dL Normal 0.2 - 1. 0 [facility] Comment on above: Performed By: #### U AMIC ####[facility] Zidxbzdsyt[address] [place], [place] [address]Dr. Grace Abdul WBC 0-2 Abnormal NONE SEEN [facility] Comment on above: Performed By: #### U AMIC ####[facility] [address] [place] [id number]. Grace Abdul CBC AUTO DIFFon 04-04-2022 BASO # 0.0 103/ul Normal 0.0-0.1 [facility] Comment on above: Performed By: #### C BC ####[facility] [address] [place] [id number]. Benitalee ann Abdul Basophils/100 WBC (Bld) 0.4 % Normal 0.2-2.0 [facility] Comment on above: Performed By: #### C BC ####[facility] [address] [place] [address]Dr. Grace Franko EO # 0.1 103/ul Normal 0.0-0.7 [facility] Comment on above: Performed By: #### C BC ####[facility] Obuzqcgxsr[address] [place], [place] [address]Dr. Benitalee ann Abdul Eosinophils/100 WBC (Bld) 1.3 % Normal 0.9-7.0 [facility] Comment on above: Performed By: #### C BC ####[facility] Kpucwed[address]qp[address] [place], [place] [address]Dr. Grace Abdul Erythrocyte distribution width (RBC) [Ratio] 13.7 % Normal 11.0-15.0 [facility] Comment on above: Performed By: #### C BC ####[facility] Cjhtysvurp[address] [place], [place] [address]Dr. Grace Abdul Hematocrit (Bld) [Volume fraction] 37.2 % Normal 36.0-48.0 [facility] Comment on above: Performed By: #### C BC ####[facility] Sgtwkhizwz[address] [place], [place] [address]Dr. Grace Abdul Hemoglobin (Bld) [Mass/Vol] 12.4 g/dL Normal 12.0-16.0 [facility] Comment on above: Performed By: #### C BC ####[facility] Gnth[address]fe[address] [place], [place] [address]Dr. Grace Abdul IG # 0.02 10e3/ul Normal 0.00-0.03 [facility] Comment on above: Performed By: #### C BC ####[facility] [address] [place] [id number]. Grace Abdul IG % 0.4 % Normal 0.0-0.5 [facility] Comment on above: Performed By: #### C BC ####[facility] [address] [place] [id number]. Grace Abdul LYMPH # 0.8 103/ul Critically low 1.2-3.8 [facility] Comment on above: Performed By: #### C BC ####[facility] Se[address]tf[address] [place] [id number]. Grace Abdul Lymphocytes/100 WBC (Bld) 13.9 % Critically low 20.5-60.0 [facility] Comment on above: Performed By: #### C BC ####[facility] [address]azwtsc[address] [place] [address]Dr. Grace Abdul MANUAL DIFF REQ NO Normal [facility] Comment on above: Performed By: #### C BC ####[facility] [address]hs[address]dsa[address] [place] [id number]. Grace Abdul MCH (RBC) [Entitic mass] 30.5 pg Normal 26.7-34.0 [facility] Comment on above: Performed By: #### C BC ####[facility] Xi[address]upgshh[address] [place] [phone]. Grace Abdul MCHC (RBC) [Mass/Vol] 33.3 g/dL Normal 29.9-35.2 [facility] Comment on above: Performed By: #### C BC ####[facility] [address]yt[address] [place] [id number] Abdul MCV (RBC) [Entitic vol] 91.4 fL Normal 81.0-99.0 [facility] Comment on above: Performed By: #### C BC ####[facility] C[address]ilegrlo[address] [place] [address]DrLisette Abdul MONO # 0.7 103/ul Normal 0.3-0.8 [facility] Comment on above: Performed By: #### C BC ####[facility] [address]wr[address]or[address] [place] [phone]. Grace Abdul Monocytes/100 WBC (Bld) 13.5 % Critically high 1.7-12.0 [facility] Comment on above: Performed By: #### C BC ####[facility] [address]syn[address] [place] [phone]. Grace Abdul NEUT # 3.8 103/ul Normal 1.4-6.5 [facility] Comment on above: Performed By: #### C BC ####[facility] Y[address]qhlq[address] [place] [phone]. Grace Abdul Neutrophils/100 WBC (Bld) 70.5 % Normal 43.0-75.0 [facility] Comment on above: Performed By: #### C BC ####[facility] [address]axro[address] [place] [address]Dr. Grace Abdul Platelet mean volume (Bld) [Entitic vol] 9.0 fL Critically low 9.5-13.5 [facility] Comment on above: Performed By: #### C BC ####[facility] [address]yp[address] [place] [address]Dr. Grace Abdul PLT 283 103/ul Normal 150-450 [facility] Comment on above: Performed By: #### C BC ####[facility] [address]xsg[address] [place] [id number]. Grace Abdul RBC 4.07 106/ul Critically low 4.20-5.40 [facility] Comment on above: Performed By: #### C BC ####[facility] [address]pf[address] [place] [phone]. Grace Abdul WBC 5.4 103/ul Normal 4.0-11.0 [facility] Comment on above: Performed By: #### C BC ####[facility] P[address]ly[address] [place] [id number]. Grace Abdul CT ABD/PELV W CONon 04-04-[address] ABD/PELV W CON EXAM: CT ABD/PELV W CON TECHNIQUE: Axial CT images were obtained of the abdomen and pelvis with intravenous contrast. Sagittal and coronal reformatted images were also obtained. Dose reduction techniques were achieved by using automated exposure control and/or adjustment of mA and/or kV according to patient size and/or use of iterative reconstruction technique. HISTORY: Right lower quadrant pain COMPARISON: 04/01/2017 FINDINGS: Lower chest: The lower lungs are clear. Liver: Several stable benign hepatic cysts. Gallbladder: Status post cholecystectomy. No significant biliary dilatation. Pancreas: The pancreas is homogeneous without evidence for mass lesion or inflammation. Spleen: The spleen is unremarkable without evidence for mass lesion. Adrenal glands: The adrenal glands are unremarkable Kidneys and bladder: A couple tiny benign cortical cysts of the kidneys. The ureters demonstrate normal caliber. The urinary bladder is unremarkable. GI Tract: Stomach is unremarkable. Visualized small bowel is unremarkable without evidence for obstruction or active inflammation. The appendix is not visualized. No evidence for appendicitis in the right lower quadrant.The visualized portion of the large bowel is unremarkable. Reproductive: The uterus has been removed. Lymph nodes: No retroperitoneal or abdominal lymphadenopathy. Vascular: The aorta is not dilated. Peritoneum: No free intraperitoneal air or fluid. No acute inflammation. Abdominal wall: Old healed left pelvis fractures. Degenerative changes and scoliosis of the lumbar spine. ___ IMPRESSION: No acute abdominal pathology. No acute inflammatory process. No obstructing urinary tract stone. No evidence for bowel obstruction. Electronically authenticated by: EMILY NAVARRETE Date: 2022-04-04 16:59 Normal [facility] ER URINE PROFILEon 3 Bilirubin Ql (U) Negative Normal NEGATIVE [facility] Comment on above: Performed By: #### ROBERT FELDER ####[facility] [address]ds[address] [place] [id number]. Grace Abdul Clarity (U) CLEAR Normal CLEAR [facility] Comment on above: Performed By: #### E ROBERT ELLISON ####[facility] [address]fr[address]un[address] [place] [phone] Abdul Color (U) LT. YELLOW Normal YELLOW [facility] Comment on above: Performed By: #### GINA FELDERRO ####[facility] [address]drdz[address] [place] [address]Dr. Grace HIGGINS A micrscopic examination will be performed if indicated. Normal [facility] Comment on above: Performed By: #### Anthony ELLISON UMICRO ####[facility] [address]ref[address]zknu[address] [place] [address]Dr. Grace Abdul Glucose Ql (U) Negative Normal NEGATIVE [facility] Comment on above: Performed By: #### GINA FELDERRO ####[facility] [address]ll[address]syn[address] [place] [address]Dr. Grace Abdul Hemoglobin Ql (U) SMALL Abnormal NEGATIVE [facility] Comment on above: Performed By: #### GINA FELDERRO ####[facility] Rghexlyhgn39[address] [place] [address]Dr. Grace Abdul Ketones Ql (U) Negative Normal NEGATIVE [facility] Comment on above: Performed By: #### GINA FELDERRO ####[facility] Y[address]rdgtbea[address] [place], [place] [address]Dr. Grace Abdul LEUKOCYTES TRACE Abnormal NEGATIVE [facility] Comment on above: Performed By: #### GINA FELDERRO ####[facility] [address]zy[address]reeo[address] [place] [address]Dr. Grace Abdul Nitrite Ql (U) Negative Normal NEGATIVE [facility] Comment on above: Performed By: #### GINA FELDERRO ####[facility] [address]zpdl[address] [place] [address]Dr. Grace Abdul pH (U) 7.5 [pH] Normal 5-9 [facility] Comment on above: Performed By: #### GINA FELDERRO ####[facility] [address]psiz[address] [place] [address]Dr. Grace Abdul SPEC GRAVITY 1.005 Normal 1.005-<=1.025 [facility] Comment on above: Performed By: #### GINA FELDERRO ####[facility] [address] [place] [address]Dr. Grace Abdul UA PROTEIN Negative Normal NEGATIVE/ TRACE [facility] Comment on above: Performed By: #### ROBERT FELDER ####[facility] [address]cpgs[address] [place] [address]Dr. Grace Abdul UR MICRO IND INDICATED Normal [facility] Comment on above: Performed By: #### ROBERT FELDER ####[facility] [address] [place] [address]Dr. Grace Abdul Urobilinogen Qn (U) 0.2 {Ashley'U}/dL Normal 0.2 - 1. 0 [facility] Comment on above: Performed By: #### ROBERT FELDER ####[facility] [address]ax[address] [place] [address]Dr. Grace Abdul LIPASEon 04-04-2022 Lipase [Catalytic activity/Vol] 115.0 U/L Normal 73.0-393.0 [facility] Comment on above: Performed By: #### C JOETBZaria #### [facility] [address] [address] [address] Grace Abdul PROF 14(COMP METB)on 023 Albumin [Mass/Vol] 3.6 g/dL Normal 3.4-5.0 [facility] Comment on above: Performed By: #### Lakia DIAZTBZaria #### [facility] [address] [address] [address] Grace Abdul Albumin/Globulin [Mass ratio] 1.1 {ratio} Normal [facility] Comment on above: Performed By: #### C VDTBH #### [facility] [address] [address] [address] Grace Abdul ALP [Catalytic activity/Vol] 74 U/L Normal 46-116 [facility] Comment on above: Performed By: #### C VDTBH #### [facility] [address] [address] [address] Grace Abdul ALT [Catalytic activity/Vol] 23 U/L Normal 14-59 [facility] Comment on above: Performed By: #### C VDTBH #### [facility] [address] [address] [address] Grace Abdul Anion gap [Moles/Vol] 12.1 mmol/L Normal [facility] Comment on above: Performed By: #### C VDTBH #### [facility] [address] [address] [address] Grace Abdul AST [Catalytic activity/Vol] 21 U/L Normal 15-37 [facility] Comment on above: Performed By: #### C VDTBH #### [facility] [address] [address] [address] Grace Abdul Bilirubin [Mass/Vol] 0.2 mg/dL Normal 0.2-1.0 [facility] Comment on above: Performed By: #### C VDTBH #### [facility] [address] [address] [address] Grace Abdul Calcium [Mass/Vol] 9.3 mg/dL Normal 8.5-10.1 [facility] Comment on above: Performed By: #### C VDTBH #### [facility] [address] [address] [address] Grace Abdul Chloride [Moles/Vol] 99 mmol/L Normal 98-107 [facility] Comment on above: Performed By: #### C VDTBH #### [facility] [address] [address] [address] Grace Abdul CO2 [Moles/Vol] 31.2 mmol/L Normal 21.0-32.0 [facility] Comment on above: Performed By: #### C VDTBH #### [facility] [address] [address] [address] Grace Abdul Creatinine [Mass/Vol] 1.22 mg/dL Critically high 0.55-1.02 [facility] Comment on above: Performed By: #### C VDTBH #### [facility] [address] [address] [address] Grace Abdul EGFR-AF BULGARIAN 51 mL/min/1.73m2 Critically low >=60 [facility] Comment on above: Performed By: #### C VDTBH #### [facility] [address] [address] [address] Grace Abdul EGFR-NON AF BULGARIAN 42 mL/min/1.73m2 Critically low >=60 [facility] Comment on above: Performed By: #### C VDTBH #### [facility] [address] [address] [address] Grace Abdul Globulin (S) [Mass/Vol] 3.3 g/dL Normal [facility] Comment on above: Performed By: #### C VDTBH #### [facility] [address] [address] [address] Grace Abdul Glucose [Mass/Vol] 115 mg/dL Critically high 74-106 [facility] Comment on above: Performed By: #### C VDTBH #### [facility] [address] [place] [address] Dr. Grace Abdul Potassium [Moles/Vol] 3.3 mmol/L Critically low 3.5-5.1 [facility] Comment on above: Performed By: #### C VDTBH #### [facility] [address] [place] [address] Dr. Grace Abdul Protein [Mass/Vol] 6.9 g/dL Normal 6.4-8.2 [facility] Comment on above: Performed By: #### C VDTBH #### [facility] [address] [place] [address] Dr. Grace Abdul Sodium [Moles/Vol] 139 mmol/L Normal 136-145 [facility] Comment on above: Performed By: #### C VDTBH #### [facility] [address] [place] [address] Dr. Grace Abdul Urea nitrogen [Mass/Vol] 23.0 mg/dL Critically high 7.0-18.0 [facility] Comment on above: Performed By: #### C VDTBH #### [facility] [address] [place] [address] Dr. Grace Abdul Urea nitrogen/Creatinine [Mass ratio] 18.9 mg/mg Normal [facility] Comment on above: Performed By: #### C VDTB #### [facility] [address] [address] [address] Grace Abdul URINE MICROSCOPIC ONLYon BACTERIA NONE SEEN Normal NONE SEEN [facility] Comment on above: Performed By: #### Anthony ELLISON UMICRO ####[facility] [address] [address]Dr. Grace Abdul Bacteria identified Cx Nom (U) NOT INDICATED Normal [facility] Comment on above: Performed By: #### Anthony ELLISON UMICRO ####[facility] [address] [address]Dr. Grace Abdul CAST NONE SEEN Normal NONE SEEN [facility] Comment on above: Performed By: #### Anthony ELLISON UMICRO ####[facility] [address] [address]Dr. Grace Abdul Crystals LM Nom (Urine sed) NONE SEEN Normal NONE SEEN [facility] Comment on above: Performed By: #### Anthony ELLISON UMICRO ####[facility] [address] [address]Dr. Grace Abdul Epithelial cells LM Ql (Urine sed) RARE Normal NONE SEEN /RARE [facility] Comment on above: Performed By: #### Anthony ELLISON UMICRO ####[facility] [address] [address]Dr. Grace Abdul MUCOUS NONE SEEN Normal NONE SEEN [facility] Comment on above: Performed By: #### E RUJimenez, UMICRO ####[facility] [address] [address]Dr. Grace Abdul RBC 0-2 Normal 0-2 [facility] Comment on above: Performed By: #### E RUR, UMICRO ####[facility] [address] [address]Dr. Grace Abdul WBC 0-2 Abnormal NONE SEEN [facility] Comment on above: Performed By: #### E RUJimenez UMICRO ####[facility] [address] [id number]. Grace Abdul BNPon 12-11-2021 Natriuretic peptide B (Bld) [Mass/Vol] 665.0 pg/mL Normal <=1,800.0 [facility] Comment on above: Performed By: #### B MP #### [facility] [address] [place], [place] [address] Dr. Grace Abdul CBC AUTO DIFFon 12-11-2021 BASO # 0.0 103/ul Normal 0.0-0.1 [facility] Comment on above: Performed By: #### C BC ####[facility] [address] [address]DrLisette Abdul Basophils/100 WBC (Bld) 0.5 % Normal 0.2-2.0 [facility] Comment on above: Performed By: #### C BC ####[facility] [address] [address]Dr. Grace Abdul EO # 0.1 103/ul Normal 0.0-0.7 [facility] Comment on above: Performed By: #### C BC ####[facility] [address] [address]Dr. Grace Abdul Eosinophils/100 WBC (Bld) 1.9 % Normal 0.9-7.0 [facility] Comment on above: Performed By: #### C BC ####[facility] [address] [address]Dr. Grace Abdul Erythrocyte distribution width (RBC) [Ratio] 13.4 % Normal 11.0-15.0 [facility] Comment on above: Performed By: #### C BC ####[facility] [address] [place], [place] [address]Dr. Grace Abdul Hematocrit (Bld) [Volume fraction] 36.2 % Normal 36.0-48.0 [facility] Comment on above: Performed By: #### C BC ####[facility] [address] [place], [place] [address]DrLisette Abdul Hemoglobin (Bld) [Mass/Vol] 11.9 g/dL Critically low 12.0-16.0 [facility] Comment on above: Performed By: #### C BC ####[facility] [address] [address]DrLisette Abdul IG # 0.01 10e3/ul Normal 0.00-0.03 [facility] Comment on above: Performed By: #### C BC ####[facility] [address] [address]DrLisette Abdul IG % 0.2 % Normal 0.0-0.5 [facility] Comment on above: Performed By: #### C BC ####[facility] [address] [address]DrLisette Abdul LYMPH # 0.5 103/ul Critically low 1.2-3.[address] [facility] Comment on above: Performed By: #### C BC ####[facility] [address] [address]DrLisette Abdul Lymphocytes/100 WBC (Bld) 11.5 % Critically low 20.5-60.0 [facility] Comment on above: Performed By: #### C BC ####[facility] [address] [address]DrLisette Abdul MANUAL DIFF REQ NO Normal [facility] Comment on above: Performed By: #### C BC ####[facility] [address] [address]DrLisette Abdul MCH (RBC) [Entitic mass] 31.6 pg Normal 26.7-34.0 [facility] Comment on above: Performed By: #### C BC ####[facility] [address] [address]DrLisette Abdul MCHC (RBC) [Mass/Vol] 32.9 g/dL Normal 29.9-35.2 [facility] Comment on above: Performed By: #### C BC ####[facility] [address] [address]DrLisette Abdul MCV (RBC) [Entitic vol] 96.0 fL Normal 81.0-99.0 [facility] Comment on above: Performed By: #### C BC ####[facility] [address] [address] Grace Abdul MONO # 0.6 103/ul Normal 0.3-0.8 [facility] Comment on above: Performed By: #### C BC ####[facility] [address] [address]DrLisette Abdul Monocytes/100 WBC (Bld) 14.4 % Critically high 1.7-12.0 [facility] Comment on above: Performed By: #### C BC ####[facility] [address] [place], [place] [address]DrLisette Joylee ann Franko NEUT # 3.0 103/ul Normal 1.4-6.5 [facility] Comment on above: Performed By: #### C BC ####[facility] [address] [place], [place] [address]DrLisette Abdul Neutrophils/100 WBC (Bld) 71.5 % Normal 43.0-75.0 [facility] Comment on above: Performed By: #### C BC ####[facility] [address] [place], [place] [address]DrLisette Grace Franko Platelet mean volume (Bld) [Entitic vol] 9.2 fL Critically low 9.5-13.5 [facility] Comment on above: Performed By: #### C BC ####[facility] [address] [place], [place] [address]DrLisette Joylee ann Franko PLT 290 103/ul Normal 150-450 [facility] Comment on above: Performed By: #### C BC ####[facility] [address] [place], [place] [address]DrLisette Abdul RBC 3.77 106/ul Critically low 4.20-5.40 [facility] Comment on above: Performed By: #### C BC ####[facility] [address] [place], [place] [address]DrLisette Abdul WBC 4.2 103/ul Normal 4.0-11.0 [facility] Comment on above: Performed By: #### C BC ####[facility] [address] [address]Dr. Grace Abdul FREE THYROXINE INDEX T7on FTI 2.63 Normal 1.30-4.50 [facility] Comment on above: Performed By: #### B MP #### [facility] [address] [address] [address] Grace Abdul T3U 35.0 % Normal 30.0-39.0 [facility] Comment on above: Performed By: #### B MP #### [facility] [address] [address] [address] Grace Abdul T4 [Mass/Vol] 7.50 ug/dL Normal 4.80-13.90 [facility] Comment on above: Performed By: #### B MP #### [facility] [address] [address] [address] Grace Abdul GLYCOHEMOGLOBIN A1Con 2021 ADA RECOMMENDATION SEE BELOW Normal [facility] Comment on above: Result Comment: ADA RECOMMENDED LIMIT 4.0 - 6.0 ADA THERAPEUTIC TARGET < 7.0 ACTION SUGGESTED > 7.0 Performed By: #### A 1C ####[facility] [address] [address]Dr. Grace Abdul Glucose [Mass/Vol] 111 mg/dL Normal [facility] Comment on above: Performed By: #### A 1C ####[facility] [address] [address]DrLisette Abdul HbA1c (Bld) [Mass fraction] 5.5 % Normal 4.5-6.2 [facility] Comment on above: Performed By: #### A 1C ####[facility] [address] [address]DrLisette Abdul IRONon 12-11-2021 Iron [Mass/Vol] 50.0 ug/dL Normal 50.0-170.0 [facility] Comment on above: Performed By: #### I KASANDRA WEBSTER VITB12 ####[facility] [address] [place], [place] [address]AjDr. Grace Abdul LIPID PROFILEon 12-11-2021 CHOL-HDL RATIO NORM SEE BELOW Normal [facility] Comment on above: Result Comment: 3.3 - 4.4 LOW RISK 4.4 - 7.1 AVERAGE RISK 7.1 - 11.0 MODERATE RISK >11.0 HIGH RISK Performed By: #### B MP #### [facility] [address] [address] [address] Grace Abdul Cholesterol [Mass/Vol] 182 mg/dL Normal <=200 [facility] Comment on above: Performed By: #### B MP #### [facility] [address] [address] [address] Grace Abdul Cholesterol in HDL [Mass/Vol] 60 mg/dL Normal 40-60 [facility] Comment on above: Performed By: #### B MP #### [facility] [address] [address] [address] Grace Abdul Cholesterol in LDL [Mass/Vol] 101.2 mg/dL Normal [facility] Comment on above: Performed By: #### B MP #### [facility] [address] [address] [address] Grace Abdul Cholesterol.total/Ch olesterol in HDL [Mass ratio] 3.0 {ratio} Normal [facility] Comment on above: Performed By: #### B MP #### [facility] [id number] Grace Abdul HDL NORMAL > or = 60 mg/dl - LO W CARDIOVASCULAR RISK <40 mg/dl - HIGH CARDIOVASCULAR RISK Normal [facility] Comment on above: Performed By: #### B MP #### [facility] [id number] Grace Abdul LDL CALC NORMAL SEE BELOW Normal [facility] Comment on above: Result Comment: <100 mg/dl OPTIMAL 100 - 129 mg/dl NEAR OR ABOVE OPTIMAL 130 - 159 mg/dl BORDERLINE HIGH 160 - 189 mg/dl HIGH >190 mg/dl VERY HIGH Performed By: #### B MP #### [facility] [address] [place] [address] Dr. Grace Abdul Triglyceride [Mass/Vol] 104 mg/dL Normal <=150 [facility] Comment on above: Performed By: #### B MP #### [facility] [address] [place] [address] Dr. Grace Abdul VLDL CALC 20.8 mg/dL Normal [facility] Comment on above: Performed By: #### B MP #### [facility] [address] [place] [address] Dr. Grace Abdul PROF 14(COMP METB)on 12-11- 022 Albumin [Mass/Vol] 3.5 g/dL Normal 3.4-5.0 [facility] Comment on above: Performed By: #### B MP #### [facility] [address] [place] [address] Dr. Grace Abdul Albumin/Globulin [Mass ratio] 1.0 {ratio} Normal [facility] Comment on above: Performed By: #### B MP #### [facility] [address] [place] [address] Dr. Grace Abdul ALP [Catalytic activity/Vol] 55 U/L Normal 46-116 [facility] Comment on above: Performed By: #### B MP #### [facility] [address] [place] [address] Dr. Grace Abdul ALT [Catalytic activity/Vol] 21 U/L Normal 14-59 [facility] Comment on above: Performed By: #### B MP #### [facility] [address] [place] [address] Dr. Grace Abdul Anion gap [Moles/Vol] 9.3 mmol/L Normal [facility] Comment on above: Performed By: #### B MP #### [facility] [address] [place] [address] Dr. Grace Abdul AST [Catalytic activity/Vol] 21 U/L Normal 15-37 [facility] Comment on above: Performed By: #### B MP #### [facility] [address] [place] [address] Dr. Grace Abdul Bilirubin [Mass/Vol] 0.3 mg/dL Normal 0.2-1.0 [facility] Comment on above: Performed By: #### B MP #### [facility] [address] [address] [address] Grace Abdul Calcium [Mass/Vol] 9.5 mg/dL Normal 8.5-10.1 [facility] Comment on above: Performed By: #### B MP #### [facility] [address] [address] [address] Grace Abdul Chloride [Moles/Vol] 102 mmol/L Normal 98-107 [facility] Comment on above: Performed By: #### B MP #### [facility] [address] [place] [address] Dr. Grace Abdul CO2 [Moles/Vol] 28.5 mmol/L Normal 21.0-32.0 [facility] Comment on above: Performed By: #### B MP #### [facility] [address] [address] [address] Grace Abdul Creatinine [Mass/Vol] 1.04 mg/dL Critically high 0.55-1.02 [facility] Comment on above: Performed By: #### B MP #### [facility] [address] [address] [address] Grace Abdul EGFR-AF BULGARIAN >60 Normal >=60 [facility] Comment on above: Performed By: #### B MP #### [facility] [address] [address] [address] Grace Abdul EGFR-NON AF BULGARIAN 51 mL/min/1.73m2 Critically low >=60 [facility] Comment on above: Performed By: #### B MP #### [facility] [address] [address] [address] Grace Abdul Globulin (S) [Mass/Vol] 3.5 g/dL Normal [facility] Comment on above: Performed By: #### B MP #### [facility] [address] [address] [address] Grace Abdul Glucose [Mass/Vol] 102 mg/dL Normal 74-106 [facility] Comment on above: Performed By: #### B MP #### [facility] [address] [address] [address] Grace Abdul Potassium [Moles/Vol] 3.8 mmol/L Normal 3.5-5.1 [facility] Comment on above: Performed By: #### B MP #### [facility] [address] [address] [address] Grace Abdul Protein [Mass/Vol] 7.0 g/dL Normal 6.4-8.2 [facility] Comment on above: Performed By: #### B MP #### [facility] [address] [address] [address] Grace Abdul Sodium [Moles/Vol] 136 mmol/L Normal 136-145 [facility] Comment on above: Performed By: #### B MP #### [facility] [address] [address] [address] Grace Abdul Urea nitrogen [Mass/Vol] 20.0 mg/dL Critically high 7.0-18.0 [facility] Comment on above: Performed By: #### B MP #### [facility] [address] [address] [address] Grace Abdul Urea nitrogen/Creatinine [Mass ratio] 19.2 mg/mg Normal [facility] Comment on above: Performed By: #### B MP #### [facility] [address] [address] [address] Grace Abdul TSHon 12-11-2021 TSH 0.247 uIU/mL Critically low 0.358-3.740 [facility] Comment on above: Performed By: #### B MP #### [facility] [address] [address] [address] Grace Abdul VITAMIN B12on 12-11-2021 Cobalamin (Vitamin B12) [Mass/Vol] 762.0 pg/mL Normal 193.0-986.0 [facility] Comment on above: Performed By: #### I DARIN, VITLETTY, VITB12 ####[facility] [address] [address]Dr. Grace Abdul VITAMIN D 25 OHon 12-11-2021 VIT D 25-OH 54.9 ng/mL Normal [facility] Comment on above: Performed By: #### I DARIN VITLETTY, VITB12 ####[facility] [address] [place], [place] [address]Kc. Grace Abdul VIT D RANGES SEE BELOW Normal [facility] Comment on above: Result Comment: <20 ng/mL Vit D deficient 20 - <30 ng/mL Vit D insufficient 30 - 100 ng/mL Vit D sufficient >100 ng/mL Potential Toxicity Performed By: #### I DARIN VITAD, VITB12 ####[facility] [address] [id number]. Grace Abdul MG MAMM SCREEN 3D CLEMENCIA CADon 11-25-2021 MG MAMM SCREEN 3D CLEMENCIA CAD Patient: ALEXA DELGADO Exam Date: 11/25/2021 : 1940 Gender:F Ordering : DR GALINA ROGERS . Admission #: [id number] Family : DR ELOISA MORALES Order #: [id number] CLICK HERE TO VIEW EXAM RADIOLOGY REPORT PROCEDURE: MAMMOGRAM SCREENING 3D BILATERAL CAD COMPARISON: MG MAMM SCREEN CLEMENCIA W CAD, 11/22/2019. MG MAMM SCREEN 3D CLEMENCIA CAD, 11/24/2020. INDICATIONS: Screening mammography Calculator Name NCI Breast Cancer Risk Assessment Tool 5 Year Breast Cancer Risk 2.10% Lifetime Breast Cancer Risk 2.80% Personal Breast Cancer No Personal Ovarian Cancer No Treatments None Family Cancers None LOCATION: [facility] BREAST COMPOSITION: Scattered areas fibroglandular density. FINDINGS: DIAGNOSTIC CATEGORY 2--BENIGN FINDING. NO CHANGE FROM COMPARISON. Scattered benign-appearing calcifications are present. Scattered benign-appearing lymph nodes are present. RIGHT BREAST: No significant suspicious finding. LEFT BREAST: No significant suspicious finding. RECOMMENDATIONS: ROUTINE MAMMOGRAM AND CLINICAL EVALUATION IN 12 MONTHS. PLEASE NOTE: A NORMAL MAMMOGRAM DOES NOT EXCLUDE THE POSSIBILITY OF BREAST CANCER. A CLINICALLY SUSPICIOUS PALPABLE LUMP SHOULD BE BIOPSIED. Dictated by: Hermes Mendoza MD on 11/25/2021 at 14:12 Approved by: Hermes Mendoza MD on 11/25/2021 at 14:14 Normal [facility] CULTURE URINEon 11-24-2021 CULTURE URINE Culture Observations : LIGHT GROWTH OF MIXED GENITAL ALANIS. NO POTENTIAL PATHOGENS SEEN. Normal [facility] Comment on above: Performed By: #### U RCX ####[facility] [address] [address]Dr. Grace Abdul GI PANEL (PCR)on 11-24-2021 Adenovirus F 40/41 Not detected Normal NOT DETECTED [facility] Comment on above: Performed By: #### C BC #### [facility] [address] [place] [address] Dr. Grace Abdul Astrovirus Not detected Normal NOT DETECTED [facility] Comment on above: Performed By: #### C BC #### [facility] [address] [place] [address] Dr. Grace Guthrie Diff toxin A/B Not detected Normal NOT DETECTED [facility] Comment on above: Performed By: #### C BC #### [facility] [address] [place] [address] Dr. Grace Abdul Campylobacter Not detected Normal NOT DETECTED [facility] Comment on above: Performed By: #### C BC #### [facility] [address] [place] [address] Dr. Grace Abdul Cryptosporidium Not detected Normal NOT DETECTED [facility] Comment on above: Performed By: #### C BC #### [facility] [address] [place] [address] Dr. Grace Abdul Cyclos. Cayetanensis Not detected Normal NOT DETECTED [facility] Comment on above: Performed By: #### C BC #### [facility] [address] [place] [address] Dr. Grace Abdul E. Coli O157 Not Applicable Normal Not Applicable [facility] Comment on above: Performed By: #### C BC #### [facility] [address] [place] [address] Dr. Grace Abdul E. histolytica Not detected Normal NOT DETECTED [facility] Comment on above: Performed By: #### C BC #### [facility] [address] [place] [address] Dr. Grace Abdul EAEC Not detected Normal NOT DETECTED [facility] Comment on above: Performed By: #### C BC #### [facility] [address] [place] [address] Dr. Grace Abdul EIEC Not detected Normal NOT DETECTED [facility] Comment on above: Performed By: #### C BC #### [facility] [address] [place] [address] Dr. Grace Abdul EPEC Not detected Normal NOT DETECTED [facility] Comment on above: Performed By: #### C BC #### [facility] [address] [place] [address] Dr. Grace Abdul ETEC Not detected Normal NOT DETECTED [facility] Comment on above: Performed By: #### C BC #### [facility] [address] [place] [address] Dr. Grace Abdul G. Lamblia Not detected Normal NOT DETECTED [facility] Comment on above: Performed By: #### C BC #### [facility] [address] [place] [address] Dr. Grace MCKEON CONTROLS PASSED Normal [facility] Comment on above: Performed By: #### C BC #### [facility] [address] [place] [address] Dr. Grace MATAMOROS [facility] HEADER GI PANEL BACTERIA Normal [facility] Comment on above: Performed By: #### C BC #### [facility] [address] [place] [address] Dr. Grace SANDERS ECOLI GI PANEL DIARRHEAGEN IC E.COLI / SHIGELLA Normal [facility] Comment on above: Performed By: #### C BC #### [facility] [address] [place] [address] Dr. Grace SANDERS INFO SEE BELOW [facility] Comment on above: Result Comment: EAEC - Enteroaggregative E. Coli EPEC- Enteropathogenic E. Coli ETEC- Enterotoxigenic E. Coli lt/st STEC- Shigella-like toxin-producing E. Coli stx1/stx2 EIEC- Shigella/Enteroinvasive E. Coli Performed By: #### C BC #### [facility] [address] [place] [address] Dr. Grace SANDERS PARASITES GI PANEL PARASITES Normal [facility] Comment on above: Performed By: #### C BC #### [facility] [address] [place] [address] Dr. Grace SANDERS VIRUS GI PANEL VIRUSES Normal [facility] Comment on above: Performed By: #### C BC #### [facility] [address] [place] [address] Dr. Grace Abdul Norovirus GI/GII Not detected Normal NOT DETECTED [facility] [facility] Comment on above: Performed By: #### C BC #### [facility] [address] [place] [address] Dr. Grace Abdul P. Shigelloides Not detected Normal NOT DETECTED [facility] Comment on above: Performed By: #### C BC #### [facility] [address] [place] [address] Dr. Grace Abdul Rotavirus A Not detected Normal NOT DETECTED [facility] Comment on above: Performed By: #### C BC #### [facility] [address] [place] [address] Dr. Grace Abdul Salmonella Not detected Normal NOT DETECTED The [facility] Comment on above: Performed By: #### C BC #### [facility] [address] [place] [address] Dr. Grace Abdul Sapovirus Not detected Normal NOT DETECTED [facility] Comment on above: Performed By: #### C BC #### [facility] [address] [place] [address] Dr. Grace Abdul STEC Not detected Normal NOT DETECTED [facility] Comment on above: Performed By: #### C BC #### [facility] [address] [place] [address] Dr. Grace Abdul Vibrio Not detected Normal NOT DETECTED [facility] Comment on above: Performed By: #### C BC #### [facility] [address] [place] [address] Dr. Grace Abdul Vibrio Cholera Not detected Normal NOT DETECTED The [facility] Comment on above: Performed By: #### C BC #### [facility] [address] [address] [address] Grace Blue Enterocolitica Not detected Normal NOT DETECTED [facility] Comment on above: Performed By: #### C BC #### [facility] [address] [address] [address] Grace Abdul UA RANDOM W/MICROSCOPICon BACTERIA NONE SEEN Normal NONE SEEN [facility] Comment on above: Performed By: #### U AMIC ####[facility] [address] [address]Dr. Grace Abdul Bilirubin Ql (U) Negative Normal NEGATIVE [facility] Comment on above: Performed By: #### U AMIC ####[facility] [address] [address]DrLisette Abdul CAST NONE SEEN Normal NONE SEEN [facility] Comment on above: Performed By: #### U AMIC ####[facility] [address] [address]Dr. Grace Abdul Clarity (U) CLEAR Normal CLEAR [facility] Comment on above: Performed By: #### U AMIC ####[facility] [address] [address]Dr. Grace Abdul Color (U) LT. YELLOW Normal YELLOW [facility] Comment on above: Performed By: #### U AMIC ####[facility] [address] [address]Dr. Grace Abdul Crystals LM Nom (Urine sed) NONE SEEN Normal NONE SEEN [facility] Comment on above: Performed By: #### U AMIC ####[facility] [address] [address]Dr. Grace Abdul Epithelial cells LM Ql (Urine sed) FEW Abnormal NONE SEEN /RARE [facility] Comment on above: Performed By: #### U AMIC ####[facility] [address] [address]Dr. Grace Abdul Glucose Ql (U) Negative Normal NEGATIVE [facility] Comment on above: Performed By: #### U AMIC ####[facility] [address] [address]Dr. Grace Abdul Hemoglobin Ql (U) TRACE-INTACT Abnormal NEGATIVE [facility] Comment on above: Performed By: #### U AMIC ####[facility] [address] [address]Dr. Grace Abdul Ketones Ql (U) Negative Normal NEGATIVE [facility] Comment on above: Performed By: #### U AMIC ####[facility] [address] [place], [place] [address]Dr. Grace Abdul LEUKOCYTES Negative Normal NEGATIVE [facility] Comment on above: Performed By: #### U AMIC ####[facility] [address] [place], [place] [address]Dr. Grace Abdul MUCOUS NONE SEEN Normal NONE SEEN [facility] Comment on above: Performed By: #### U AMIC ####[facility] [address] [place], [place] [address]Dr. Grace Abdul Nitrite Ql (U) Negative Normal NEGATIVE [facility] Comment on above: Performed By: #### U AMIC ####[facility] [address] [place], [place] [address]Dr. Grace Abdul pH (U) 7.5 [pH] Normal 5-9 [facility] Comment on above: Performed By: #### U AMIC ####[facility] [address] [place], [place] [address]Dr. Grace Abdul RBC 0-2 Normal 0-2 [facility] Comment on above: Performed By: #### U AMIC ####[facility] [address] [place], [place] [address]Dr. Grace Abdul SPEC GRAVITY 1.010 Normal 1.005-<=1.025 [facility] Comment on above: Performed By: #### U AMIC ####[facility] [address] [place], [place] [address]Dr. Grace Abdul UA PROTEIN Negative Normal NEGATIVE/ TRACE [facility] Comment on above: Performed By: #### U AMIC ####[facility] [address] [place], [place] [address]AbLisette Abdul Urobilinogen Qn (U) 0.2 {Ashley'U}/dL Normal 0.2 - 1. 0 [facility] Comment on above: Performed By: #### U AMIC ####[facility] [address] [id number] Abdul WBC NONE SEEN Normal NONE SEEN [facility] Comment on above: Performed By: #### U AMIC ####[facility] [address] [place], [place] [address]KvLisette Abdul CBC AUTO DIFFon 11-23-2021 BASO # 0.0 103/ul Normal 0.0-0.1 [facility] Comment on above: Performed By: #### C BC #### [facility] [address] [address] [address] Grace Abdul Basophils/100 WBC (Bld) 0.4 % Normal 0.2-2.0 [facility] Comment on above: Performed By: #### C BC #### [facility] [address] [address] [address] Grace Abdul EO # 0.1 103/ul Normal 0.0-0.7 [facility] Comment on above: Performed By: #### C BC #### [facility] [address] [address] [address] Grace Abdul Eosinophils/100 WBC (Bld) 1.5 % Normal 0.9-7.0 [facility] Comment on above: Performed By: #### C BC #### [facility] [address] [address] [address] Grace Abdul Erythrocyte distribution width (RBC) [Ratio] 13.2 % Normal 11.0-15.0 [facility] Comment on above: Performed By: #### C BC #### [facility] [address] [address] [address] Grace Abdul Hematocrit (Bld) [Volume fraction] 31.9 % Critically low 36.0-48.0 [facility] Comment on above: Performed By: #### C BC #### [facility] [address] [address] [address] Grace Abdul Hemoglobin (Bld) [Mass/Vol] 10.5 g/dL Critically low 12.0-16.0 [facility] Comment on above: Performed By: #### C BC #### [facility] [address] [address] [address] Grace Abdul IG # 0.01 10e3/ul Normal 0.00-0.03 [facility] Comment on above: Performed By: #### C BC #### [facility] [address] [place] [address] Dr. Grace Abdul IG % 0.2 % Normal 0.0-0.5 [facility] Comment on above: Performed By: #### C BC #### [facility] [address] [place] [address] Dr. Grace Abdul LYMPH # 0.7 103/ul Critically low 1.2-3.8 [facility] Comment on above: Performed By: #### C BC #### [facility] [address] [place] [address] Dr. Grace Abdul Lymphocytes/100 WBC (Bld) 14.8 % Critically low 20.5-60.0 [facility] Comment on above: Performed By: #### C BC #### [facility] [address] [place] [address] Dr. Grace Abdul MANUAL DIFF REQ NO Normal [facility] Comment on above: Performed By: #### C BC #### [facility] [address] [place] [address] Dr. Grace Abdul MCH (RBC) [Entitic mass] 31.4 pg Normal 26.7-34.0 [facility] Comment on above: Performed By: #### C BC #### [facility] [address] [place] [address] Dr. Grace Abdul MCHC (RBC) [Mass/Vol] 32.9 g/dL Normal 29.9-35.2 [facility] Comment on above: Performed By: #### C BC #### [facility] [address] [address] [address] Grace Abdul MCV (RBC) [Entitic vol] 95.5 fL Normal 81.0-99.0 [facility] Comment on above: Performed By: #### C BC #### [facility] [address] [address] [address] Grace Abdul MONO # 0.6 103/ul Normal 0.3-0.8 [facility] Comment on above: Performed By: #### C BC #### [facility] [address] [address] [address] Grace Abdul Monocytes/100 WBC (Bld) 13.4 % Critically high 1.7-12.0 [facility] Comment on above: Performed By: #### C BC #### [facility] [address] [address] [address] Grace Abdul NEUT # 3.3 103/ul Normal 1.4-6.5 [facility] Comment on above: Performed By: #### C BC #### [facility] [address] [address] [address] Grace Abdul Neutrophils/100 WBC (Bld) 69.7 % Normal 43.0-75.0 [facility] Comment on above: Performed By: #### C BC #### [facility] [address] [address] [address] Grace Abdul Platelet mean volume (Bld) [Entitic vol] 9.1 fL Critically low 9.5-13.5 [facility] Comment on above: Performed By: #### C BC #### [facility] [address] [address] [address] Grace Abdul PLT 335 103/ul Normal 150-450 [facility] Comment on above: Performed By: #### C BC #### [facility] [address] [address] [address] Grace Abdul RBC 3.34 106/ul Critically low 4.20-5.40 [facility] Comment on above: Performed By: #### C BC #### [facility] [address] [address] [address] Grace Abdul WBC 4.8 103/ul Normal 4.0-11.0 [facility] Comment on above: Performed By: #### C BC #### [facility] [id number] Grace Abdul FREE THYROXINE INDEX T7on FTI 1.15 Critically low 1.30-4.[address] [facility] Comment on above: Performed By: #### T 7, CMP, TSH ####[facility] [address] [id number] Abdul T3U 31.0 % Normal 30.0-39.0 [facility] Comment on above: Performed By: #### T 7, CMP, TSH ####[facility] [address] [id number]. Grace Abdul T4 [Mass/Vol] 3.70 ug/dL Critically low 4.80-13.90 The [facility] Comment on above: Performed By: #### T 7, CMP, TSH ####[facility] [address] [id number]. Grace Abdul IRONon 11-23-2021 Iron [Mass/Vol] 52.0 ug/dL Normal 50.0-170.0 [facility] Comment on above: Performed By: #### C VDTB #### [facility] [address] [address] [address] Grace Abdul PROF 14(COMP METB)on 022 Albumin [Mass/Vol] 3.5 g/dL Normal 3.4-5.0 [facility] Comment on above: Performed By: #### T 7, CMP, TSH ####[facility] [address] [id number] Abdul Albumin/Globulin [Mass ratio] 1.1 {ratio} Normal [facility] Comment on above: Performed By: #### T 7, CMP, TSH ####[facility] [address] [id number] Abdul ALP [Catalytic activity/Vol] 69 U/L Normal 46-116 [facility] Comment on above: Performed By: #### T 7, CMP, TSH ####[facility] [address] [address]Dr. Grace Abdul ALT [Catalytic activity/Vol] 51 U/L Normal 14-59 [facility] Comment on above: Performed By: #### T 7, CMP, TSH ####[facility] [address] [place], [place] [address]Dr. Grace Abdul Anion gap [Moles/Vol] 11.5 mmol/L Normal [facility] Comment on above: Performed By: #### T 7, CMP, TSH ####[facility] [address] [place], [place] [address]Dr. Grace Abdul AST [Catalytic activity/Vol] 24 U/L Normal 15-37 [facility] Comment on above: Performed By: #### T 7, CMP, TSH ####[facility] [address] [place], [place] [address]Dr. Grace Abdul Bilirubin [Mass/Vol] 0.2 mg/dL Normal 0.2-1.0 [facility] Comment on above: Performed By: #### T 7, CMP, TSH ####[facility] [address] [place], [place] [address]Dr. Grace Abdul Calcium [Mass/Vol] 9.3 mg/dL Normal 8.5-10.1 [facility] Comment on above: Performed By: #### T 7, CMP, TSH ####[facility] [address] [address]Dr. Grace Abdul Chloride [Moles/Vol] 98 mmol/L Normal 98-107 [facility] Comment on above: Performed By: #### T 7, CMP, TSH ####[facility] [address] [place], [place] [address]Dr. Grace Abdul CO2 [Moles/Vol] 28.7 mmol/L Normal 21.0-32.0 [facility] Comment on above: Performed By: #### T 7, CMP, TSH ####[facility] [address] [id number]. Grace Abdul Creatinine [Mass/Vol] 1.11 mg/dL Critically high 0.55-1.02 [facility] Comment on above: Performed By: #### T 7, CMP, TSH ####[facility] [address] [id number]. Grace Abdul EGFR-AF BULGARIAN 57 mL/min/1.73m2 Critically low >=60 [facility] Comment on above: Performed By: #### T 7, CMP, TSH ####[facility] [address] [id number]. Grace Abdul EGFR-NON AF BULGARIAN 47 mL/min/1.73m2 Critically low >=60 [facility] Comment on above: Performed By: #### T 7, CMP, TSH ####[facility] [address] [address]Dr. Benitalee ann Abdul Globulin (S) [Mass/Vol] 3.3 g/dL Normal [facility] Comment on above: Performed By: #### T 7, CMP, TSH ####[facility] [address] [address]Dr. Grace Abdul Glucose [Mass/Vol] 88 mg/dL Normal 74-106 [facility] Comment on above: Performed By: #### T 7, CMP, TSH ####[facility] [address] [id number]. Grace Abdul Potassium [Moles/Vol] 4.2 mmol/L Normal 3.5-5.1 [facility] Comment on above: Performed By: #### T 7, CMP, TSH ####[facility] [address] [id number]. Grace Abdul Protein [Mass/Vol] 6.8 g/dL Normal 6.4-8.2 [facility] Comment on above: Performed By: #### T 7, CMP, TSH ####[facility] [address] [address]Dr. Grace Abdul Sodium [Moles/Vol] 134 mmol/L Critically low 136-145 [facility] Comment on above: Performed By: #### T 7, CMP, TSH ####[facility] [address] [address]Dr. Grace Abdul Urea nitrogen [Mass/Vol] 33.0 mg/dL Critically high 7.0-18.0 [facility] Comment on above: Performed By: #### T 7, CMP, TSH ####[facility] [address] [address]Dr. Grace Abdul Urea nitrogen/Creatinine [Mass ratio] 29.7 mg/mg Normal [facility] Comment on above: Performed By: #### T 7, CMP, TSH ####[facility] [address] [address]DrLisette Abdul TSHon 11-23-2021 TSH 0.469 uIU/mL Normal 0.358-3.740 [facility] Comment on above: Performed By: #### T 7, CMP, TSH ####[facility] [address] [address]DrLisette Abdul CBC AUTO DIFFon 11-17-2021 BASO # 0.0 103/ul Normal 0.0-0.1 [facility] Comment on above: Performed By: #### C VDTBH #### [facility] [address] [place] [address] Dr. Grace Abdul Basophils/100 WBC (Bld) 0.2 % Normal 0.2-2.0 [facility] Comment on above: Performed By: #### C VDTBH #### [facility] [address] [place] [address] Dr. Grace Abdul EO # 0.1 103/ul Normal 0.0-0.7 [facility] Comment on above: Performed By: #### C VDTBH #### [facility] [address] [place] [address] Dr. Grace Abdul Eosinophils/100 WBC (Bld) 0.9 % Normal 0.9-7.0 [facility] Comment on above: Performed By: #### C VDTBH #### [facility] [address] [place] [address] Dr. Grace Abdul Erythrocyte distribution width (RBC) [Ratio] 12.8 % Normal 11.0-15.0 [facility] Comment on above: Performed By: #### C VDTBH #### [facility] [address] [place] [address] Dr. Grace Abdul Hematocrit (Bld) [Volume fraction] 35.2 % Critically low 36.0-48.0 [facility] Comment on above: Performed By: #### C VDTBH #### [facility] [address] [place] [address] Dr. Grace Abdul Hemoglobin (Bld) [Mass/Vol] 12.1 g/dL Normal 12.0-16.0 [facility] Comment on above: Performed By: #### C VDTBH #### [facility] [address] [place] [address] Dr. Grace Abdul IG # 0.05 10e3/ul Critically high 0.00-0.03 [facility] Comment on above: Performed By: #### C VDTBH #### [facility] [address] [place] [address] Dr. Grace Abdul IG % 0.6 % Critically high 0.0-0.5 [facility] Comment on above: Performed By: #### C VDTBH #### [facility] [address] [place] [address] Dr. Grace Abdul LYMPH # 0.6 103/ul Critically low 1.2-3.8 [facility] Comment on above: Performed By: #### C VDTBH #### [facility] [address] [place] [address] Dr. Grace Abdul Lymphocytes/100 WBC (Bld) 7.4 % Critically low 20.5-60.0 [facility] Comment on above: Performed By: #### C VDTBH #### [facility] [address] [place] [address] Dr. Grace Abdul MANUAL DIFF REQ NO Normal [facility] Comment on above: Performed By: #### C VDTBH #### [facility] [address] [address] [address] Grace Abdul MCH (RBC) [Entitic mass] 31.5 pg Normal 26.7-34.0 [facility] Comment on above: Performed By: #### C VDTBH #### [facility] [address] [place] [address] Dr. Grace Abdul MCHC (RBC) [Mass/Vol] 34.4 g/dL Normal 29.9-35.2 [facility] Comment on above: Performed By: #### C VDTBH #### [facility] [address] [place] [address] Dr. Grace Abdul MCV (RBC) [Entitic vol] 91.7 fL Normal 81.0-99.0 [facility] Comment on above: Performed By: #### C VDTBH #### [facility] [address] [place] [address] Dr. Grace Abdul MONO # 1.0 103/ul Critically high 0.3-0.8 [facility] Comment on above: Performed By: #### C VDTBH #### [facility] [address] [place] [address] Dr. Grace Abdul Monocytes/100 WBC (Bld) 12.1 % Critically high 1.7-12.0 [facility] Comment on above: Performed By: #### C VDTBH #### [facility] [address] [place] [address] Dr. Grace Abdul NEUT # 6.3 103/ul Normal 1.4-6.5 [facility] Comment on above: Performed By: #### C VDTBH #### [facility] [address] [place] [address] Dr. Grace Abdul Neutrophils/100 WBC (Bld) 78.8 % Critically high 43.0-75.0 [facility] Comment on above: Performed By: #### C VDTBH #### [facility] [address] [place] [address] Dr. Grace Abdul Platelet mean volume (Bld) [Entitic vol] 9.1 fL Critically low 9.5-13.5 [facility] Comment on above: Performed By: #### C VDTBH #### [facility] [address] [place] [address] Dr. Grace Abdul PLT 281 103/ul Normal 150-450 [facility] Comment on above: Performed By: #### C VDTBH #### [facility] [address] [place] [address] Dr. Grace Abdul RBC 3.84 106/ul Critically low 4.20-5.40 [facility] Comment on above: Performed By: #### C VDTBH #### [facility] [address] [place] [address] Dr. Grace Abdul WBC 8.0 103/ul Normal 4.0-11.0 [facility] Comment on above: Performed By: #### C VDTBH #### [facility] [address] [place] [address] Dr. Grace Abdul MAGNESIUMon 11-17-2021 Magnesium [Mass/Vol] 1.9 mg/dL Normal 1.8-2.4 [facility] Comment on above: Performed By: #### C VDTBH #### [facility] [address] [place] [address] Dr. Grace Abdul PROF CHEM 8 (BAS METB)on Anion gap [Moles/Vol] 13.9 mmol/L Normal [facility] Comment on above: Performed By: #### C VDTBH #### [facility] [address] [place] [address] Dr. Grace Abdul Calcium [Mass/Vol] 8.7 mg/dL Normal 8.5-10.1 [facility] Comment on above: Performed By: #### C VDTBH #### [facility] [address] [place] [address] Dr. Grace Abdul Chloride [Moles/Vol] 101 mmol/L Normal 98-107 [facility] Comment on above: Performed By: #### C VDTBH #### [facility] [address] [place] [address] Dr. Grace Abdul CO2 [Moles/Vol] 24.3 mmol/L Normal 21.0-32.0 [facility] Comment on above: Performed By: #### C VDTBH #### [facility] [address] [place] [address] Dr. Grace Abdul Creatinine [Mass/Vol] 0.89 mg/dL Normal 0.55-1.02 [facility] Comment on above: Performed By: #### C VDTBH #### [facility] [address] [place] [address] Dr. Grace Abdul EGFR-AF BULGARIAN >60 Normal >=60 [facility] Comment on above: Performed By: #### C VDTBH #### [facility] [address] [place] [address] Dr. Grace Abdul EGFR-NON AF BULGARIAN >60 Normal >=60 [facility] Comment on above: Performed By: #### C VDTBH #### [facility] [address] [place] [address] Dr. Grace Abdul Glucose [Mass/Vol] 97 mg/dL Normal 74-106 [facility] Comment on above: Performed By: #### C VDTBH #### [facility] [address] [place] [address] Dr. Grace Abdul Potassium [Moles/Vol] 3.2 mmol/L Critically low 3.5-5.1 [facility] Comment on above: Performed By: #### C VDTBH #### [facility] [address] [address] [address] Grace Abdul Sodium [Moles/Vol] 136 mmol/L Normal 136-145 [facility] Comment on above: Performed By: #### C VDTBH #### [facility] [address] [place] [address] Dr. Grace Abdul Urea nitrogen [Mass/Vol] 14.0 mg/dL Normal 7.0-18.0 [facility] Comment on above: Performed By: #### C VDTBH #### [facility] [address] [place] [address] Dr. Grace Abdul Urea nitrogen/Creatinine [Mass ratio] 15.7 mg/mg Normal [facility] Comment on above: Performed By: #### C VDTB #### [facility] [address] [place] [address] Dr. Grace Abdul CBC AUTO DIFFon 11-16-2021 BASO # 0.0 103/ul Normal 0.0-0.1 [facility] Comment on above: Performed By: #### B MP #### [facility] [address] [place] [address] Dr. Grace Abdul Basophils/100 WBC (Bld) 0.2 % Normal 0.2-2.0 [facility] Comment on above: Performed By: #### B MP #### [facility] [address] [place] [address] Dr. Grace Abdul EO # 0.0 103/ul Normal 0.0-0.7 [facility] Comment on above: Performed By: #### B MP #### [facility] [address] [place] [address] Dr. Grace Abdul Eosinophils/100 WBC (Bld) 0.5 % Critically low 0.9-7.0 [facility] Comment on above: Performed By: #### B MP #### [facility] [address] [place] [address] Dr. Grace bAdul Erythrocyte distribution width (RBC) [Ratio] 12.4 % Normal 11.0-15.0 [facility] Comment on above: Performed By: #### B MP #### [facility] [address] [place] [address] Dr. Grace Abdul Hematocrit (Bld) [Volume fraction] 33.6 % Critically low 36.0-48.0 [facility] Comment on above: Performed By: #### B MP #### [facility] [address] [place] [address] Dr. Grace Abdul Hemoglobin (Bld) [Mass/Vol] 11.8 g/dL Critically low 12.0-16.0 [facility] Comment on above: Performed By: #### B MP #### [facility] [address] [place] [address] Dr. Grace Abdul IG # 0.04 10e3/ul Critically high 0.00-0.03 [facility] Comment on above: Performed By: #### B MP #### [facility] [address] [place] [address] Dr. Grace Abdul IG % 0.7 % Critically high 0.0-0.5 [facility] Comment on above: Performed By: #### B MP #### [facility] [address] [place] [address] Dr. Grace Abdul LYMPH # 0.7 103/ul Critically low 1.2-3.[address] [facility] Comment on above: Performed By: #### B MP #### [facility] [address] [place] [address] Dr. Grace Abdul Lymphocytes/100 WBC (Bld) 11.1 % Critically low 20.5-60.0 [facility] Comment on above: Performed By: #### B MP #### [facility] [address] [place] [address] Dr. Grace Abdul MANUAL DIFF REQ NO Normal [facility] Comment on above: Performed By: #### B MP #### [facility] [address] [place] [address] Dr. Grace Abdul MCH (RBC) [Entitic mass] 31.5 pg Normal 26.7-34.0 [facility] Comment on above: Performed By: #### B MP #### [facility] [address] [place] [address] Dr. Grace Abdul MCHC (RBC) [Mass/Vol] 35.1 g/dL Normal 29.9-35.2 [facility] Comment on above: Performed By: #### B MP #### [facility] [address] [place] [address] Dr. Grace Abdul MCV (RBC) [Entitic vol] 89.6 fL Normal 81.0-99.0 [facility] Comment on above: Performed By: #### B MP #### [facility] [address] [place] [address] Dr. Grace Abdul MONO # 0.9 103/ul Critically high 0.3-0.8 [facility] Comment on above: Performed By: #### B MP #### [facility] [address] [place] [address] Dr. Grace Abdul Monocytes/100 WBC (Bld) 14.0 % Critically high 1.7-12.0 [facility] Comment on above: Performed By: #### B MP #### [facility] [address] [place] [address] Dr. Grace Abdul NEUT # 4.5 103/ul Normal 1.4-6.5 [facility] Comment on above: Performed By: #### B MP #### [facility] [address] [place] [address] Dr. Grace Abdul Neutrophils/100 WBC (Bld) 73.5 % Normal 43.0-75.0 [facility] Comment on above: Performed By: #### B MP #### [facility] [address] [place] [address] Dr. Grace Abdul Platelet mean volume (Bld) [Entitic vol] 9.3 fL Critically low 9.5-13.5 [facility] Comment on above: Performed By: #### B MP #### [facility] [address] [place] [address] Dr. Grace Abdul PLT 292 103/ul Normal 150-450 [facility] Comment on above: Performed By: #### B MP #### [facility] [address] [place] [address] Dr. Grace Abdul RBC 3.75 106/ul Critically low 4.20-5.40 [facility] Comment on above: Performed By: #### B MP #### [facility] [address] [place] [address] Dr. Grace Abdul WBC 6.1 103/ul Normal 4.0-11.0 [facility] Comment on above: Performed By: #### B MP #### [facility] [address] [place] [address] Dr. Grace Abdul CULTURE URINEon 11-16-2021 CULTURE URINE Culture Observations : LIGHT GROWTH OF MIXED GENITAL ALANIS. NO POTENTIAL PATHOGENS SEEN. Normal [facility] Comment on above: Performed By: #### U RCX ####[facility] [address] [address]. Grace Abdul ER URINE PROFILEon 2 Bilirubin Ql (U) Negative Normal NEGATIVE [facility] Comment on above: Performed By: #### C VDTBH #### [facility] [address] [place] [address] Dr. Grace Abdul Clarity (U) CLEAR Normal CLEAR [facility] Comment on above: Performed By: #### C VDTBH #### [facility] [address] [place] [address] Dr. Grace Abdul Color (U) LT. YELLOW Normal YELLOW [facility] Comment on above: Performed By: #### C VDTBH #### [facility] [address] [place] [address] Dr. Grace HIGGINS A micrscopic examination will be performed if indicated. Normal [facility] Comment on above: Performed By: #### C VDTBH #### [facility] [address] [place] [address] Dr. Grace Abdul Glucose Ql (U) Negative Normal NEGATIVE [facility] Comment on above: Performed By: #### C VDTBH #### [facility] [address] [place] [address] Dr. Grace Abdul Hemoglobin Ql (U) SMALL Abnormal NEGATIVE [facility] Comment on above: Performed By: #### C VDTBH #### [facility] [address] [place] [address] Dr. Grace Abdul Ketones Ql (U) 40 mg/dl Abnormal NEGATIVE [facility] Comment on above: Performed By: #### C VDTBH #### [facility] [address] [place] [address] Dr. Grace Abdul LEUKOCYTES SMALL Abnormal NEGATIVE [facility] Comment on above: Performed By: #### C VDTBH #### [facility] [address] [place] [address] Dr. Grace Abdul Nitrite Ql (U) Negative Normal NEGATIVE [facility] Comment on above: Performed By: #### C VDTBH #### [facility] [address] [place] [address] Dr. Grace Abdul pH (U) 7.0 [pH] Normal 5-9 [facility] Comment on above: Performed By: #### C VDTBH #### [facility] [address] [place] [address] Dr. Grace Abdul SPEC GRAVITY 1.010 Normal 1.005-<=1.025 [facility] Comment on above: Performed By: #### C VDTBH #### [facility] [address] [place] [address] Dr. Grace Abdul UA PROTEIN Negative Normal NEGATIVE/ TRACE [facility] Comment on above: Performed By: #### C VDTBH #### [facility] [address] [place] [address] Dr. Grace Abdul UR MICRO IND INDICATED Normal [facility] Comment on above: Performed By: #### C VDTBH #### [facility] [address] [place] [address] Dr. Grace Abdul Urobilinogen Qn (U) 0.2 {Ashley'U}/dL Normal 0.2 - 1. 0 [facility] Comment on above: Performed By: #### C VDTBH #### [facility] [address] [place] [address] Dr. Grace Abdul MAGNESIUMon 11-16-2021 Magnesium [Mass/Vol] 1.8 mg/dL Normal 1.8-2.4 [facility] Comment on above: Performed By: #### C VDTBH #### [facility] [address] [place] [address] Dr. Grace Abdul PROF CHEM 8 (BAS METB)on Anion gap [Moles/Vol] 12.7 mmol/L Normal [facility] Comment on above: Performed By: #### B MP #### [facility] [address] [place] [address] Dr. Grace Abdul Calcium [Mass/Vol] 8.3 mg/dL Critically low 8.5-10.1 [facility] Comment on above: Performed By: #### B MP #### [facility] [address] [address] [address] Grace Abdul CO2 [Moles/Vol] 24.4 mmol/L Normal 21.0-32.0 [facility] Comment on above: Performed By: #### B MP #### [facility] [address] [address] [address] Grace Abdul Creatinine [Mass/Vol] 1.16 mg/dL Critically high 0.55-1.02 [facility] Comment on above: Performed By: #### B MP #### [facility] [address] [place] [address] Dr. Grace Abdul EGFR-AF BULGARIAN 54 mL/min/1.73m2 Critically low >=60 [facility] Comment on above: Performed By: #### B MP #### [facility] [address] [place] [address] Dr. Grace Abdul EGFR-NON AF BULGARIAN 45 mL/min/1.73m2 Critically low >=60 [facility] Comment on above: Performed By: #### B MP #### [facility] [address] [place] [address] Dr. Grace Abdul Glucose [Mass/Vol] 116 mg/dL Critically high 74-106 [facility] Comment on above: Performed By: #### B MP #### [facility] [address] [address] [address] Grace Abdul Urea nitrogen [Mass/Vol] 20.0 mg/dL Critically high 7.0-18.0 [facility] Comment on above: Performed By: #### B MP #### [facility] [address] [place] [address] Dr. Grcae Abdul Urea nitrogen/Creatinine [Mass ratio] 17.2 mg/mg Normal [facility] Comment on above: Performed By: #### B MP #### [facility] [address] [place] [address] Dr. Grace Abdul Anion gap [Moles/Vol] 10.0 mmol/L Normal [facility] Comment on above: Performed By: #### B MP #### [facility] [address] [address] [address] Grace Abdul Calcium [Mass/Vol] 8.8 mg/dL Normal 8.5-10.1 [facility] Comment on above: Performed By: #### B MP #### [facility] [address] [address] [address] Grace Abdul Chloride [Moles/Vol] 96 mmol/L Critically low 98-107 [facility] Comment on above: Performed By: #### B MP #### [facility] [address] [place] [address] Dr. Grace Abdul CO2 [Moles/Vol] 26.1 mmol/L Normal 21.0-32.0 [facility] Comment on above: Performed By: #### B MP #### [facility] [address] [address] [address] Grace Abdul Creatinine [Mass/Vol] 1.11 mg/dL Critically high 0.55-1.02 [facility] Comment on above: Performed By: #### B MP #### [facility] [address] [address] [address] Grace Abdul EGFR-AF BULGARIAN 57 mL/min/1.73m2 Critically low >=60 [facility] Comment on above: Performed By: #### B MP #### [facility] [address] [address] [address] Grace Abdul EGFR-NON AF BULGARIAN 47 mL/min/1.73m2 Critically low >=60 [facility] Comment on above: Performed By: #### B MP #### [facility] [address] [address] [address] Grace Abdul Glucose [Mass/Vol] 94 mg/dL Normal 74-106 [facility] Comment on above: Performed By: #### B MP #### [facility] [address] [address] [address] Grace Abdul Potassium [Moles/Vol] 3.1 mmol/L Critically low 3.5-5.1 [facility] Comment on above: Performed By: #### B MP #### [facility] [address] [place] [address] Dr. Grace Abdul Performed By: #### C VDTBH #### [facility] [address] [place] [address] Dr. Grace Abdul Sodium [Moles/Vol] 129 mmol/L Critically low 136-145 Th [facility] Comment on above: Performed By: #### B MP #### [facility] [address] [place] [address] Dr. Grace Abdul Urea nitrogen [Mass/Vol] 16.0 mg/dL Normal 7.0-18.0 [facility] Comment on above: Performed By: #### B MP #### [facility] [address] [place] [address] Dr. Grace Abdul Urea nitrogen/Creatinine [Mass ratio] 14.4 mg/mg Normal [facility] Comment on above: Performed By: #### B MP #### [facility] [address] [place] [address] Dr. Grace Abdul Anion gap [Moles/Vol] 12.6 mmol/L [facility] Comment on above: Performed By: #### C VDTBH #### [facility] [address] [place] [address] Dr. Grace Abdul Calcium [Mass/Vol] 8.6 mg/dL Normal 8.5-10.1 [facility] Comment on above: Performed By: #### C VDTBH #### [facility] [address] [place] [address] Dr. Grace Abdul Chloride [Moles/Vol] 95 mmol/L Critically low 98-107 [facility] Comment on above: Performed By: #### B MP #### [facility] [address] [place] [address] Dr. Grace Abdul Performed By: #### C VDTBH #### [facility] [address] [place] [address] Dr. Grace Abdul CO2 [Moles/Vol] 22.5 mmol/L Normal 21.0-32.0 [facility] Comment on above: Performed By: #### C VDTBH #### [facility] [address] [place] [address] Dr. Grace Abdul Creatinine [Mass/Vol] 0.95 mg/dL Normal 0.55-1.02 [facility] Comment on above: Performed By: #### C VDTBH #### [facility] [address] [place] [address] Dr. Grace Abdul EGFR-AF BULGARIAN >60 Normal >=60 [facility] Comment on above: Performed By: #### C VDTBH #### [facility] [address] [place] [address] Dr. Grace Abdul EGFR-NON AF BULGARIAN 56 mL/min/1.73m2 Critically low >=60 [facility] Comment on above: Performed By: #### C VDTBH #### [facility] [address] [place] [address] Dr. Grace Abdul Glucose [Mass/Vol] 92 mg/dL Normal 74-106 [facility] Comment on above: Performed By: #### C VDTBH #### [facility] [address] [place] [address] Dr. Grace Abdul Sodium [Moles/Vol] 127 mmol/L Critically low 136-145 Th [facility] Comment on above: Performed By: #### C VDTBH #### [facility] [address] [place] [address] Dr. Grace Abdul Urea nitrogen [Mass/Vol] 18.0 mg/dL Normal 7.0-18.0 [facility] Comment on above: Performed By: #### C VDTBH #### [facility] [address] [place] [address] Dr. Grace Abdul Urea nitrogen/Creatinine [Mass ratio] 18.9 mg/mg Normal [facility] Comment on above: Performed By: #### C VDTBH #### [facility] [address] [place] [address] Dr. Grace Abdul URINE MICROSCOPIC ONLYon BACTERIA TRACE Abnormal NONE SEEN [facility] Comment on above: Performed By: #### C VDTBH #### [facility] [address] [place] [address] Dr. Grace Abdul Bacteria identified Cx Nom (U) INDICATED Normal [facility] Comment on above: Performed By: #### C VDTBH #### [facility] [address] [place] [address] Dr. Grace Abdul CAST NONE SEEN Normal NONE SEEN [facility] Comment on above: Performed By: #### C VDTBH #### [facility] [address] [place] [address] Dr. Grace Abdul Crystals LM Nom (Urine sed) NONE SEEN Normal NONE SEEN [facility] Comment on above: Performed By: #### C VDTBH #### [facility] [address] [place] [address] Dr. Grace Abdul Epithelial cells LM Ql (Urine sed) FEW Abnormal NONE SEEN /RARE [facility] Comment on above: Performed By: #### C VDTBH #### [facility] [address] [place] [address] Dr. Grace Abdul MUCOUS NONE SEEN Normal NONE SEEN [facility] Comment on above: Performed By: #### C VDTBH #### [facility] [address] [place] [address] Dr. Grace Abdul RBC 2-5 Abnormal 0-2 [facility] Comment on above: Performed By: #### C VDTBH #### [facility] [address] [place] [address] Dr. Grace Abdul WBC 5-10 Abnormal NONE SEEN [facility] Comment on above: Performed By: #### C VDTBH #### [facility] [address] [place] [address] Dr. Grace Abdul AMYLASEon 11-15-2021 Amylase [Catalytic activity/Vol] 94 U/L Normal 25-115 [facility] Comment on above: Performed By: #### C VDTBH #### [facility] [address] [place] [address] Dr. Grace Abdul BNPon 11-15-2021 Natriuretic peptide B (Bld) [Mass/Vol] 357.0 pg/mL Normal <=1,800.0 [facility] Comment on above: Performed By: #### C VDTBH #### [facility] [address] [place] [address] Dr. Grace Abdul CARDIAC JOVITA ADMITon 022 CK [Catalytic activity/Vol] 66 U/L Normal 26-192 [facility] Comment on above: Performed By: #### C VDTBH #### [facility] [address] [place] [address] Dr. Grace Abdul CK.MB [Mass/Vol] 2.19 ng/mL Normal <=3.60 [facility] Comment on above: Performed By: #### C VDTBH #### [facility] [address] [place] [address] Dr. Grace Abdul HSTROP 9.5 pg/mL Normal 4.0-51.3 [facility] Comment on above: Result Comment: CUT- OFF POINTS HAVE BEEN ESTABLISHED BASED ON THE FOURTH UNIVERSAL DEFINITIONS OF MYOCARDIAL INFARCTION. THE UPPER REFERENCE LIMIT (URL) OF TROPONIN, DEFINED THE 99TH PERCENTILE OF cTnI DISTRIBUTION IN A REFERENCE POPULATION, HAS BEEN CONFIRMED THE DECISION THRESHOLD FOR VA DIAGNOSIS. Performed By: #### C VDTBH #### [facility] [address] [place] [address] Dr. Grace Abdul JOHNNA 73 ng/mL Normal 9-82 [facility] Comment on above: Performed By: #### C VDTBH #### [facility] [address] [place] [address] Dr. Grace Abdul CBC AUTO DIFFon 11-15-2021 BASO # 0.0 103/ul Normal 0.0-0.1 [facility] Comment on above: Performed By: #### B MP #### [facility] [address] [place] [address] Dr. Grace Abdul Basophils/100 WBC (Bld) 0.1 % Critically low 0.2-2.0 [facility] Comment on above: Performed By: #### B MP #### [facility] [address] [address] [address] Grace Abdul EO # 0.0 103/ul Normal 0.0-0.7 [facility] Comment on above: Performed By: #### B MP #### [facility] [address] [address] [address] Grace Abdul Eosinophils/100 WBC (Bld) 0.1 % Critically low 0.9-7.0 [facility] Comment on above: Performed By: #### B MP #### [facility] [address] [place] [address] Dr. Grace Abdul Erythrocyte distribution width (RBC) [Ratio] 11.9 % Normal 11.0-15.0 [facility] Comment on above: Performed By: #### B MP #### [facility] [address] [place] [address] Dr. Grace Abdul Hematocrit (Bld) [Volume fraction] 36.6 % Normal 36.0-48.0 [facility] Comment on above: Performed By: #### B MP #### [facility] [address] [place] [address] Dr. Grace Abdul Hemoglobin (Bld) [Mass/Vol] 13.2 g/dL Normal 12.0-16.0 [facility] Comment on above: Performed By: #### B MP #### [facility] [address] [place] [address] Dr. Grace Abdul IG # 0.05 10e3/ul Critically high 0.00-0.03 [facility] Comment on above: Performed By: #### B MP #### [facility] [address] [place] [address] Dr. Grace Abdul IG % 0.7 % Critically high 0.0-0.5 [facility] Comment on above: Performed By: #### B MP #### [facility] [address] [place] [address] Dr. Grace Abdul LYMPH # 0.7 103/ul Critically low 1.2-3.[address] [facility] Comment on above: Performed By: #### B MP #### [facility] [address] [place] [address] Dr. Grace Abdul Lymphocytes/100 WBC (Bld) 9.8 % Critically low 20.5-60.0 [facility] Comment on above: Performed By: #### B MP #### [facility] [address] [place] [address] Dr. Grace Abdul MANUAL DIFF REQ NO Normal [facility] Comment on above: Performed By: #### B MP #### [facility] [address] [place] [address] Dr. Grace Abdul MCH (RBC) [Entitic mass] 31.5 pg Normal 26.7-34.0 [facility] Comment on above: Performed By: #### B MP #### [facility] [address] [place] [address] Dr. Grace Abdul MCHC (RBC) [Mass/Vol] 36.1 g/dL Critically high 29.9-35.2 [facility] Comment on above: Performed By: #### B MP #### [facility] [address] [place] [address] Dr. Grace Abdul MCV (RBC) [Entitic vol] 87.4 fL Normal 81.0-99.0 [facility] Comment on above: Performed By: #### B MP #### [facility] [address] [place] [address] Dr. Grace Abdul MONO # 0.9 103/ul Critically high 0.3-0.8 [facility] Comment on above: Performed By: #### B MP #### [facility] [address] [place] [address] Dr. Grace Abdul Monocytes/100 WBC (Bld) 12.4 % Critically high 1.7-12.0 [facility] Comment on above: Performed By: #### B MP #### [facility] [address] [place] [address] Dr. Grace Abdul NEUT # 5.8 103/ul Normal 1.4-6.5 [facility] Comment on above: Performed By: #### B MP #### [facility] [address] [place] [address] Dr. Grace Abdul Neutrophils/100 WBC (Bld) 76.9 % Critically high 43.0-75.0 [facility] Comment on above: Performed By: #### B MP #### [facility] [address] [address] [address] Grace Abdul Platelet mean volume (Bld) [Entitic vol] 9.0 fL Critically low 9.5-13.5 [facility] Comment on above: Performed By: #### B MP #### [facility] [address] [place] [address] Dr. Grace Abdul PLT 361 103/ul Normal 150-450 [facility] Comment on above: Performed By: #### B MP #### [facility] [address] [address] [address] Grace Abdul RBC 4.19 106/ul Critically low 4.20-5.40 [facility] Comment on above: Performed By: #### B MP #### [facility] [address] [address] [address] Grace Abdul WBC 7.6 103/ul Normal 4.0-11.0 [facility] Comment on above: Performed By: #### B MP #### [facility] [address] [place] [address] Dr. Grace Abdul [facility]23 SARS-CoV-2 (COVID-19) RNA LUISITO+probe Ql (Unsp spec) Not detected Normal NOT DETECTED [facility] Comment on above: Result Comment: When diagnostic testing is negative, the possibility of a false negative should be considered in the context of a patient's recent exposures and the presence of clinical signs and symptoms consistent with SARS-CoV-2. This test is not yet approved or cleared by the [place] FDA. When there are no FDA-approved or cleared tests available, and other criteria are met, FDA can make tests available under an emergency access mechanism called an Emergency Use Authorization (EUA). The EUA for this test is supported by the [place] of Health and Human Service's declaration that circumstances exist to justify the emergency use of in vitro diagnostics for the detection and/or diagnosis of the virus that causes COVID-19. This EUA will remain in effect for the duration of the COVID-19 declaration justifying emergency of IVDs, unless it is terminated or revoked by the FDA (after which the test may no longer be used). Performed By: #### C VDTBH #### [facility] [address] [place] [address] Dr. Grace Abdul LIPASEon 11-15-2021 Lipase [Catalytic activity/Vol] 178.0 U/L Normal 73.0-393.0 [facility] Comment on above: Performed By: #### C VDTBH #### [facility] [address] [place] [address] Dr. Grace Abdul PROF 14(COMP METB)on 022 Albumin [Mass/Vol] 4.1 g/dL Normal 3.4-5.0 [facility] Comment on above: Performed By: #### C VDTBH #### [facility] [address] [place] [address] Dr. Grace Abdul Albumin/Globulin [Mass ratio] 1.2 {ratio} Normal [facility] Comment on above: Performed By: #### C VDTBH #### [facility] [address] [place] [address] Dr. Grace Abdul ALP [Catalytic activity/Vol] 63 U/L Normal 46-116 [facility] Comment on above: Performed By: #### C VDTBH #### [facility] [address] [place] [address] Dr. Grace Abdul ALT [Catalytic activity/Vol] 29 U/L Normal 14-59 [facility] Comment on above: Performed By: #### C VDTBH #### [facility] [address] [place] [address] Dr. Grace Abdul Anion gap [Moles/Vol] 14.8 mmol/L Normal [facility] Comment on above: Performed By: #### C VDTBH #### [facility] [address] [place] [address] Dr. Grace Abdul AST [Catalytic activity/Vol] 25 U/L Normal 15-37 [facility] Comment on above: Performed By: #### C VDTBH #### [facility] [address] [place] [address] Dr. Grace Abdul Bilirubin [Mass/Vol] 0.6 mg/dL Normal 0.2-1.0 [facility] Comment on above: Performed By: #### C VDTBH #### [facility] [address] [place] [address] Dr. Grace Abdul Calcium [Mass/Vol] 9.4 mg/dL Normal 8.5-10.1 [facility] Comment on above: Performed By: #### C VDTBH #### [facility] [address] [place] [address] Dr. Grace Abdul Chloride [Moles/Vol] 83 mmol/L Critically low 98-107 [facility] Comment on above: Performed By: #### C VDTBH #### [facility] [address] [place] [address] Dr. Grace Abdul CO2 [Moles/Vol] 24.4 mmol/L Normal 21.0-32.0 [facility] Comment on above: Performed By: #### C VDTBH #### [facility] [address] [place] [address] Dr. Grace Abdul Creatinine [Mass/Vol] 1.15 mg/dL Critically high 0.55-1.02 [facility] Comment on above: Performed By: #### C VDTBH #### [facility] [address] [place] [address] Dr. Grace Abdul EGFR-AF BULGARIAN 55 mL/min/1.73m2 Critically low >=60 [facility] Comment on above: Performed By: #### C VDTBH #### [facility] [address] [place] [address] Dr. Grace Abdul EGFR-NON AF BULGARIAN 45 mL/min/1.73m2 Critically low >=60 [facility] Comment on above: Performed By: #### C VDTBH #### [facility] [address] [place] [address] Dr. Grace Abdul Globulin (S) [Mass/Vol] 3.4 g/dL Normal [facility] Comment on above: Performed By: #### C VDTBH #### [facility] [address] [place] [address] Dr. Grace Abdul Glucose [Mass/Vol] 147 mg/dL Critically high 74-106 [facility] Comment on above: Performed By: #### C VDTBH #### [facility] [address] [place] [address] Dr. Grace Abdul Potassium [Moles/Vol] 3.2 mmol/L Critically low 3.5-5.1 [facility] Comment on above: Performed By: #### C VDTBH #### [facility] [address] [place] [address] Dr. Grace Abdul Protein [Mass/Vol] 7.5 g/dL Normal 6.4-8.2 [facility] Comment on above: Performed By: #### C VDTBH #### [facility] [address] [place] [address] Dr. Grace Abdul Urea nitrogen/Creatinine [Mass ratio] 21.7 mg/mg Normal [facility] Comment on above: Performed By: #### C VDTBH #### [facility] [address] [place] [address] Dr. Grace Abdul PROF CHEM 8 (BAS METB)on Anion gap [Moles/Vol] 13.6 mmol/L Normal [facility] Comment on above: Performed By: #### C VDTBH #### [facility] [address] [place] [address] Dr. Grace Abdul Calcium [Mass/Vol] 8.8 mg/dL Normal 8.5-10.1 [facility] Comment on above: Performed By: #### C VDTBH #### [facility] [address] [place] [address] Dr. Grace Abdul Chloride [Moles/Vol] 88 mmol/L Critically low 98-107 [facility] Comment on above: Performed By: #### C VDTBH #### [facility] [address] [address] [address] Grace Abdul CO2 [Moles/Vol] 21.8 mmol/L Normal 21.0-32.0 [facility] Comment on above: Performed By: #### C VDTBH #### [facility] [address] [place] [address] Dr. Grace Abdul Creatinine [Mass/Vol] 1.11 mg/dL Critically high 0.55-1.02 [facility] Comment on above: Performed By: #### C VDTBH #### [facility] [address] [address] [address] Grace Abdul EGFR-AF BULGARIAN 57 mL/min/1.73m2 Critically low >=60 [facility] Comment on above: Performed By: #### C VDTBH #### [facility] [address] [place] [address] Dr. Grace Abdul EGFR-NON AF BULGARIAN 47 mL/min/1.73m2 Critically low >=60 [facility] Comment on above: Performed By: #### C VDTBH #### [facility] [address] [address] [address] Grace Abdul Glucose [Mass/Vol] 132 mg/dL Critically high 74-106 [facility] Comment on above: Performed By: #### C VDTBH #### [facility] [address] [place] [address] Dr. Grace Abdul Potassium [Moles/Vol] 3.4 mmol/L Critically low 3.5-5.1 [facility] Comment on above: Performed By: #### C VDTBH #### [facility] [address] [place] [address] Dr. Grace Abdul Sodium [Moles/Vol] 120 mmol/L Critically low 136-145 [facility] Comment on above: Result Comment: Test Repeated. Critical Value Verified Performed By: #### C VDTBH #### [facility] [address] [place] [address] Dr. Grace Abdul Urea nitrogen [Mass/Vol] 25.0 mg/dL Critically high 7.0-18.0 [facility] Comment on above: Performed By: #### C VDTBH #### [facility] [address] [address] [address] Grace Abdul Urea nitrogen/Creatinine [Mass ratio] 22.5 mg/mg Normal [facility] Comment on above: Performed By: #### C VDTBH #### [facility] [address] [address] [address] Graec Abdul PROTIMEon 11-15-2021 INR Coag (PPP) [Relative time] 0.94 {INR} Normal [facility] Comment on above: Performed By: #### C VDTBH #### [facility] [address] [address] [address] Grace Abdul INR GUIDELINES SEE BELOW Normal [facility] Comment on above: Result Comment: DURAN RED INR: 2.0 - 3.0 CONDITIONS NOT LISTED BELOW 2.5 - 3.5 FOR PROSTHETIC HEART VALVE REPLACEMENT 2.5 - 3.5 RECURRENT THROMBOSIS Performed By: #### C VDTBH #### [facility] [address] [address] [address] Grace Abdul PT Coag (PPP) [Time] 10.2 s Normal 9.0-11.6 [facility] Comment on above: Performed By: #### C VDTBH #### [facility] [address] [place] [address] Dr. Grace Abdul XR ABD FLAT UP_PA Sergio 11-15 XR ABD FLAT UP_PA CH X-RAY ABDOMINAL WIT H CHEST. INDICATION: Nausea and vomiting. COMPARISON: 11/11/2021 TECHNIQUE: Upright AP and supine views of the abdomen and pelvis. AP view of the chest was also obtained. FINDINGS: Nonobstructive bowel gas pattern. There is no pneumoperitoneum. Hyperexpanded lungs. No focal opacity.. No pleural effusion. No pneumothorax. Normal cardiac silhouette. No acute osseous abnormality. There is moderate dextrocurvature of the lumbar spine. IMPRESSION: 1. Nonobstructive bowel gas pattern. 2. Lungs are clear. Electronically authenticated by: JARET LINARES Date: 2021-11-15 13:56 Normal [facility] BNPon 11-11-2021 Natriuretic peptide B (Bld) [Mass/Vol] 546.0 pg/mL Normal <=1,800.0 [facility] Comment on above: Performed By: #### C MP, TSH, HSTROPN, BNP ####[facility] [id number] [place], [place] [address]CwDr. Grace Abdul CBC AUTO DIFFon 11-11-2021 BASO # 0.0 103/ul Normal 0.0-0.1 [facility] Comment on above: Performed By: #### C BC #### [facility] [address] [address] [address] Grace Abdul Basophils/100 WBC (Bld) 0.3 % Normal 0.2-2.0 [facility] Comment on above: Performed By: #### C BC #### [facility] [address] [address] [address] Grace Abdul EO # 0.0 103/ul Normal 0.0-0.7 [facility] Comment on above: Performed By: #### C BC #### [facility] [address] [address] [address] Grace Abdul Eosinophils/100 WBC (Bld) 0.5 % Critically low 0.9-7.0 [facility] Comment on above: Performed By: #### C BC #### [facility] [address] [address] [address] Grace Abdul Erythrocyte distribution width (RBC) [Ratio] 12.9 % Normal 11.0-15.0 [facility] Comment on above: Performed By: #### C BC #### [facility] [address] [address] [address] Grace Abdul Hematocrit (Bld) [Volume fraction] 36.1 % Normal 36.0-48.0 [facility] Comment on above: Performed By: #### C BC #### [facility] [address] [address] [address] Grace Abdul Hemoglobin (Bld) [Mass/Vol] 12.3 g/dL Normal 12.0-16.0 [facility] Comment on above: Performed By: #### C BC #### [facility] [address] [address] [address] Grace Abdul IG # 0.01 10e3/ul Normal 0.00-0.03 [facility] Comment on above: Performed By: #### C BC #### [facility] [address] [place] [address] Dr. Grace Abdul IG % 0.3 % Normal 0.0-0.5 [facility] Comment on above: Performed By: #### C BC #### [facility] [address] [place] [address] Dr. Grace Abdul LYMPH # 0.6 103/ul Critically low 1.2-3.8 [facility] Comment on above: Performed By: #### C BC #### [facility] [address] [place] [address] Dr. Grace Abdul Lymphocytes/100 WBC (Bld) 14.8 % Critically low 20.5-60.0 [facility] Comment on above: Performed By: #### C BC #### [facility] [address] [place] [address] Dr. Grace Abdul MANUAL DIFF REQ NO Normal [facility] Comment on above: Performed By: #### C BC #### [facility] [address] [place] [address] Dr. Grace Abdul MCH (RBC) [Entitic mass] 31.5 pg Normal 26.7-34.0 [facility] Comment on above: Performed By: #### C BC #### [facility] [address] [place] [address] Dr. Grace Abdul MCHC (RBC) [Mass/Vol] 34.1 g/dL Normal 29.9-35.2 [facility] Comment on above: Performed By: #### C BC #### [facility] [address] [place] [address] Dr. Grace Abdul MCV (RBC) [Entitic vol] 92.6 fL Normal 81.0-99.0 [facility] Comment on above: Performed By: #### C BC #### [facility] [address] [place] [address] Dr. Grace Abdul MONO # 0.5 103/ul Normal 0.3-0.8 [facility] Comment on above: Performed By: #### C BC #### [facility] [address] [place] [address] Dr. Grace Abdul Monocytes/100 WBC (Bld) 13.5 % Critically high 1.7-12.0 [facility] Comment on above: Performed By: #### C BC #### [facility] [address] [place] [address] Dr. Grace Abdul NEUT # 2.7 103/ul Normal 1.4-6.5 [facility] Comment on above: Performed By: #### C BC #### [facility] [address] [place] [address] Dr. Grace Abdul Neutrophils/100 WBC (Bld) 70.6 % Normal 43.0-75.0 [facility] Comment on above: Performed By: #### C BC #### [facility] [address] [place] [address] Dr. Grace Abdul Platelet mean volume (Bld) [Entitic vol] 9.2 fL Critically low 9.5-13.5 [facility] Comment on above: Performed By: #### C BC #### [facility] [address] [place] [address] Dr. Grace Abdul PLT 279 103/ul Normal 150-450 [facility] Comment on above: Performed By: #### C BC #### [facility] [address] [place] [address] Dr. Grace Abdul RBC 3.90 106/ul Critically low 4.20-5.40 [facility] Comment on above: Performed By: #### C BC #### [facility] [address] [place] [address] Dr. Grace Abdul WBC 3.9 103/ul Critically low 4.0-11.[address] [facility] Comment on above: Performed By: #### C BC #### [facility] [address] [place] [address] Dr. Grace Abdul PROF 14(COMP METB)on 022 Albumin [Mass/Vol] 3.3 g/dL Critically low 3.4-5.0 [facility] Comment on above: Performed By: #### C MP, TSH, HSTROPN, BNP #### [facility] [address] [place] [address] Dr. Grace Abdul Albumin/Globulin [Mass ratio] 1.2 {ratio} Normal [facility] Comment on above: Performed By: #### C MP, TSH, HSTROPN, BNP #### [facility] [address] [place] [address] Dr. Grace Abdul ALP [Catalytic activity/Vol] 60 U/L Normal 46-116 [facility] Comment on above: Performed By: #### C MP, TSH, HSTROPN, BNP #### [facility] [address] [place] [address] Dr. Grace Abdul ALT [Catalytic activity/Vol] 26 U/L Normal 14-59 [facility] Comment on above: Performed By: #### C MP, TSH, HSTROPN, BNP #### [facility] [address] [place] [address] Dr. Grace Abdul Anion gap [Moles/Vol] 14.8 mmol/L Normal [facility] Comment on above: Performed By: #### C MP, TSH, HSTROPN, BNP #### [facility] [address] [place] [address] Dr. Grace Abdul AST [Catalytic activity/Vol] 20 U/L Normal 15-37 [facility] Comment on above: Performed By: #### C MP, TSH, HSTROPN, BNP #### [facility] [address] [place] [address] Dr. Grace Abdul Bilirubin [Mass/Vol] 0.3 mg/dL Normal 0.2-1.0 [facility] Comment on above: Performed By: #### C MP, TSH, HSTROPN, BNP #### [facility] [address] [place] [address] Dr. Grace Abdul Calcium [Mass/Vol] 8.2 mg/dL Critically low 8.5-10.1 Th e [facility] Comment on above: Performed By: #### C MP, TSH, HSTROPN, BNP #### [facility] [address] [address] [address] Grace Abdul Chloride [Moles/Vol] 100 mmol/L Normal 98-107 [facility] Comment on above: Performed By: #### C MP, TSH, HSTROPN, BNP #### [facility] [address] [address] [address] Grace Abdul CO2 [Moles/Vol] 23.8 mmol/L Normal 21.0-32.0 [facility] Comment on above: Performed By: #### C MP, TSH, HSTROPN, BNP #### [facility] [address] [place] [address] Dr. Grace Abdul Creatinine [Mass/Vol] 1.27 mg/dL Critically high 0.55-1.02 [facility] Comment on above: Performed By: #### C MP, TSH, HSTROPN, BNP #### [facility] [address] [address] [address] Grace Abdul EGFR-AF BULGARIAN 49 mL/min/1.73m2 Critically low >=60 [facility] Comment on above: Performed By: #### C MP, TSH, HSTROPN, BNP #### [facility] [address] [address] [address] Grace Abdul EGFR-NON AF BULGARIAN 40 mL/min/1.73m2 Critically low >=60 [facility] Comment on above: Performed By: #### C MP, TSH, HSTROPN, BNP #### [facility] [address] [address] [address] Grace Abdul Globulin (S) [Mass/Vol] 2.7 g/dL Normal [facility] Comment on above: Performed By: #### C MP, TSH, HSTROPN, BNP #### [facility] [address] [address] [address] Grace Abdul Glucose [Mass/Vol] 116 mg/dL Critically high 74-106 [facility] Comment on above: Performed By: #### C MP, TSH, HSTROPN, BNP #### [facility] [address] [address] [address] Grace Abdul Potassium [Moles/Vol] 3.6 mmol/L Normal 3.5-5.1 [facility] Comment on above: Performed By: #### C MP, TSH, HSTROPN, BNP #### [facility] [address] [address] [address] Grace Abdul Protein [Mass/Vol] 6.0 g/dL Critically low 6.4-8.2 Th [facility] Comment on above: Performed By: #### C MP, TSH, HSTROPN, BNP #### [facility] [address] [place] [address] Dr. Grace Abdul Sodium [Moles/Vol] 135 mmol/L Critically low 136-145 Th [facility] Comment on above: Performed By: #### C MP, TSH, HSTROPN, BNP #### [facility] [address] [place] [address] Dr. Grace Abdul Urea nitrogen [Mass/Vol] 25.0 mg/dL Critically high 7.0-18.0 [facility] Comment on above: Performed By: #### C MP, TSH, HSTROPN, BNP #### [facility] [address] [address] [address] Grace Abdul Urea nitrogen/Creatinine [Mass ratio] 19.7 mg/mg Normal [facility] Comment on above: Performed By: #### C MP, TSH, HSTROPN, BNP #### [facility] [address] [address] [address] Grace Abdul PROTIMEon 11-11-2021 INR Coag (PPP) [Relative time] 0.95 {INR} Normal [facility] Comment on above: Performed By: #### B MP #### [facility] [address] [place] [address] Dr. Grace Abdul INR GUIDELINES SEE BELOW Normal [facility] Comment on above: Result Comment: DURAN RED INR: 2.0 - 3.0 CONDITIONS NOT LISTED BELOW 2.5 - 3.5 FOR PROSTHETIC HEART VALVE REPLACEMENT 2.5 - 3.5 RECURRENT THROMBOSIS Performed By: #### B MP #### [facility] [address] [address] [address] Grace Abdul PT Coag (PPP) [Time] 10.3 s Normal 9.0-11.6 [facility] Comment on above: Performed By: #### B MP #### [facility] [address] [place], [place] [address] Dr. Grace Abdul PTTon 11-11-2021 aPTT Coag (Bld) [Time] 21.3 s Critically low 22.3-36.2 [facility] Comment on above: Performed By: #### B MP #### [facility] [address] [address] [address] Grace Abdul TROPONIN, HIGH SENSITIVITYon 11-11-2021 HSTROP 6.5 pg/mL Normal 4.0-51.3 [facility] Comment on above: Result Comment: CUT- OFF POINTS HAVE BEEN ESTABLISHED BASED ON THE FOURTH UNIVERSAL DEFINITIONS OF MYOCARDIAL INFARCTION. THE UPPER REFERENCE LIMIT (URL) OF TROPONIN, DEFINED THE 99TH PERCENTILE OF cTnI DISTRIBUTION IN A REFERENCE POPULATION, HAS BEEN CONFIRMED THE DECISION THRESHOLD FOR [facility] DIAGNOSIS. Performed By: #### C MP, TSH, HSTROPN, BNP #### [facility] [id number] Grace Abdul TSHon 11-11-2021 TSH 2.140 uIU/mL Normal 0.358-3.740 [facility] Comment on above: Performed By: #### C MP, TSH, HSTROPN, BNP ####[facility] [id number] [place], [place] [address]WrDr. Grace Abdul XR CHEST 1 Von 11-11-2021 XR CHEST 1 V EXAMINATION: XR CHES T 1 V HISTORY: COUGH , dizziness, weakness COMPARISON: XR chest 09/13/2021 FINDINGS: LUNGS: No significant pulmonary parenchymal abnormalities. VASCULATURE: No increased pulmonary vasculature. PLEURA: No pneumothorax, effusion, or pleural thickening. CARDIAC: No cardiomegaly or cardiac silhouette abnormality. MEDIASTINUM: No visible mass or adenopathy. BONES: No fracture or visible bone lesion. OTHER: Negative. IMPRESSION: 1. No acute cardiopulmonary process or significant chronic changes. Electronically authenticated by: KRANTHIRASHAWN CONNORS Date: 2021-11-11 13:34 Normal [facility] CARDIAC JOVITA ADMITon 022 CK [Catalytic activity/Vol] 89 U/L Normal 26-192 [facility] Comment on above: Performed By: #### C VDTBH #### [facility] [address] [address] [address] Grace Abdul CK.MB [Mass/Vol] 1.92 ng/mL Normal <=3.60 [facility] Comment on above: Performed By: #### C VDTBH #### [facility] [address] [place] [address] Dr. Grace Abdul HSTROP 5.7 pg/mL Normal 4.0-51.3 [facility] Comment on above: Result Comment: CUT- OFF POINTS HAVE BEEN ESTABLISHED BASED ON THE FOURTH UNIVERSAL DEFINITIONS OF MYOCARDIAL INFARCTION. THE UPPER REFERENCE LIMIT (URL) OF TROPONIN, DEFINED THE 99TH PERCENTILE OF cTnI DISTRIBUTION IN A REFERENCE POPULATION, HAS BEEN CONFIRMED THE DECISION THRESHOLD FOR VA DIAGNOSIS. Performed By: #### C VDTBH #### [facility] [address] [place] [address] Dr. Grace Abdul JOHNNA 86 ng/mL Critically high 9-82 [facility] Comment on above: Performed By: #### C VDTBH #### [facility] [address] [place] [address] Dr. Grace Abdul CBC AUTO DIFFon 09-13-2021 BASO # 0.0 103/ul Normal 0.0-0.1 [facility] Comment on above: Performed By: #### C VDTBH #### [facility] [address] [place] [address] Dr. Grace Abdul Basophils/100 WBC (Bld) 0.5 % Normal 0.2-2.0 [facility] Comment on above: Performed By: #### C VDTBH #### [facility] [address] [place] [address] Dr. Grace Abdul EO # 0.0 103/ul Normal 0.0-0.7 [facility] Comment on above: Performed By: #### C VDTBH #### [facility] [address] [place] [address] Dr. Grace Abdul Eosinophils/100 WBC (Bld) 0.7 % Critically low 0.9-7.0 [facility] Comment on above: Performed By: #### C VDTBH #### [facility] [address] [place] [address] Dr. Grace Abdul Erythrocyte distribution width (RBC) [Ratio] 13.2 % Normal 11.0-15.0 [facility] Comment on above: Performed By: #### C VDTBH #### [facility] [address] [place] [address] Dr. Grace Abdul Hematocrit (Bld) [Volume fraction] 34.8 % Critically low 36.0-48.0 [facility] Comment on above: Performed By: #### C VDTBH #### [facility] [address] [place] [address] Dr. Grace Abdul Hemoglobin (Bld) [Mass/Vol] 11.9 g/dL Critically low 12.0-16.0 [facility] Comment on above: Performed By: #### C VDTBH #### [facility] [address] [place] [address] Dr. Grace Abdul IG # 0.01 10e3/ul Normal 0.00-0.03 [facility] Comment on above: Performed By: #### C VDTBH #### [facility] [address] [place] [address] Dr. Grace Abdul IG % 0.2 % Normal 0.0-0.5 [facility] Comment on above: Performed By: #### C VDTBH #### [facility] [address] [place] [address] Dr. Grace Abdul LYMPH # 0.6 103/ul Critically low 1.2-3.8 [facility] Comment on above: Performed By: #### C VDTBH #### [facility] [address] [address] [address] Grace Abdul Lymphocytes/100 WBC (Bld) 14.2 % Critically low 20.5-60.0 [facility] Comment on above: Performed By: #### C VDTBH #### [facility] [address] [address] [address] Grace Abdul MANUAL DIFF REQ NO Normal [facility] Comment on above: Performed By: #### C VDTBH #### [facility] [address] [address] [address] Grace Abdul MCH (RBC) [Entitic mass] 31.5 pg Normal 26.7-34.0 [facility] Comment on above: Performed By: #### C VDTBH #### [facility] [address] [place] [address] Dr. Grace Abdul MCHC (RBC) [Mass/Vol] 34.2 g/dL Normal 29.9-35.2 [facility] Comment on above: Performed By: #### C VDTBH #### [facility] [address] [address] [address] Grace Abdul MCV (RBC) [Entitic vol] 92.1 fL Normal 81.0-99.0 [facility] Comment on above: Performed By: #### C VDTBH #### [facility] [address] [place] [address] Dr. Grace Abdul MONO # 0.7 103/ul Normal 0.3-0.8 [facility] Comment on above: Performed By: #### C VDTBH #### [facility] [address] [address] [address] Grace Abdul Monocytes/100 WBC (Bld) 15.6 % Critically high 1.7-12.0 [facility] Comment on above: Performed By: #### C VDTBH #### [facility] [address] [address] [address] Grace Abdul NEUT # 3.0 103/ul Normal 1.4-6.5 [facility] Comment on above: Performed By: #### C VDTBH #### [facility] [address] [address] [address] Grace Abdul Neutrophils/100 WBC (Bld) 68.8 % Normal 43.0-75.0 [facility] Comment on above: Performed By: #### C VDTBH #### [facility] [address] [address] [address] Grace Abdul Platelet mean volume (Bld) [Entitic vol] 9.5 fL Normal 9.5-13.5 [facility] Comment on above: Performed By: #### C VDTBH #### [facility] [address] [place] [address] Dr. Grace Abdul PLT 303 103/ul Normal 150-450 [facility] Comment on above: Performed By: #### C VDTBH #### [facility] [address] [place] [address] Dr. Grace Abdul RBC 3.78 106/ul Critically low 4.20-5.40 [facility] Comment on above: Performed By: #### C VDTBH #### [facility] [address] [place] [address] Dr. Grace Abdul WBC 4.4 103/ul Normal 4.0-11.0 [facility] Comment on above: Performed By: #### C VDTBH #### [facility] [address] [place] [address] HEAD WO CONon 09-13-2021 CT HEAD WO CON EXAMINATION: CT HEAD WO CON HISTORY: Dizziness , acute COMPARISON: CT head 08/24/2020 TECHNIQUE: Axial CT images were obtained without IV contrast. Dose reduction techniques were achieved by using automated exposure control and/or adjustment of mA and/or kV according to patient size and/or use of iterative reconstruction technique. FINDINGS: BRAIN: No edema, hemorrhage, mass, acute infarction, or inappropriate atrophy. CSF SPACES: No hydrocephalus, subarachnoid hemorrhage, or mass. Appropriate for age. SKULL: No fracture, mass, or other significant visible lesion. SINUSES: Partial opacification the right sphenoid sinus. ORBITS: No appreciable abnormality on the limited views. OTHER: Negative IMPRESSION: 1. No intracranial hemorrhage or appreciable acute abnormality. 2. Grossly stable chronic sinusitis predominantly involving the right sphenoid sinus. Electronically authenticated by: KRANTHI CONNORS Date: 2021-09-13 13:24 Normal [facility] Covid-19 PCR (CVDTB)on 08-22 SARS-CoV-2 (COVID-19) RNA LUISITO+probe Ql (Unsp spec) Not detected Normal NOT DETECTED [facility] Comment on above: Result Comment: When diagnostic testing is negative, the possibility of a false negative should be considered in the context of a patient's recent exposures and the presence of clinical signs and symptoms consistent with SARS-CoV-2. This test is not yet approved or cleared by the [place] FDA. When there are no FDA-approved or cleared tests available, and other criteria are met, FDA can make tests available under an emergency access mechanism called an Emergency Use Authorization (EUA). The EUA for this test is supported by the [place] of Health and Human Service's declaration that circumstances exist to justify the emergency use of in vitro diagnostics for the detection and/or diagnosis of the virus that causes COVID-19. This EUA will remain in effect for the duration of the COVID-19 declaration justifying emergency of IVDs, unless it is terminated or revoked by the FDA (after which the test may no longer be used). Performed By: #### C VDTB #### [facility] [address] [place] [address] Dr. Grace Abdul ER URINE PROFILEon 2 Bilirubin Ql (U) Negative Normal NEGATIVE [facility] Comment on above: Performed By: #### B MP #### [facility] [address] [place] [address] Dr. Grace Abdul Clarity (U) CLEAR Normal CLEAR [facility] Comment on above: Performed By: #### B MP #### [facility] [address] [place] [address] Dr. Grace Abdul Color (U) LT. YELLOW Normal YELLOW [facility] Comment on above: Performed By: #### B MP #### [facility] [address] [place] [address] Dr. Grace HIGGINS A micrscopic examination will be performed if indicated. Normal [facility] Comment on above: Performed By: #### B MP #### [facility] [address] [place] [address] Dr. Grace Abdul Glucose Ql (U) Negative Normal NEGATIVE [facility] Comment on above: Performed By: #### B MP #### [facility] [address] [place] [address] Dr. Grace Abdul Hemoglobin Ql (U) Negative Normal NEGATIVE [facility] Comment on above: Performed By: #### B MP #### [facility] [address] [place] [address] Dr. Grace Abdul Ketones Ql (U) TRACE Abnormal NEGATIVE [facility] Comment on above: Performed By: #### B MP #### [facility] [address] [place] [address] Dr. Grace Abdul LEUKOCYTES TRACE Abnormal NEGATIVE [facility] Comment on above: Performed By: #### B MP #### [facility] [address] [place] [address] Dr. Grace Abdul Nitrite Ql (U) Negative Normal NEGATIVE [facility] Comment on above: Performed By: #### B MP #### [facility] [address] [place] [address] Dr. Grace Abdul pH (U) 8.0 [pH] Normal 5-9 [facility] Comment on above: Performed By: #### B MP #### [facility] [address] [place] [address] Dr. Grace Abdul SPEC GRAVITY 1.015 Normal 1.005-<=1.025 [facility] Comment on above: Performed By: #### B MP #### [facility] [address] [place] [address] Dr. Grace Abdul UA PROTEIN Negative Normal NEGATIVE/ TRACE [facility] Comment on above: Performed By: #### B MP #### [facility] [address] [place] [address] Dr. Grace Abdul UR MICRO IND INDICATED Normal [facility] Comment on above: Performed By: #### B MP #### [facility] [address] [place] [address] Dr. Grace Abdul Urobilinogen Qn (U) 0.2 {Ashley'U}/dL Normal 0.2 - 1. 0 [facility] Comment on above: Performed By: #### B MP #### [facility] [address] [place] [address] Dr. Grace Abdul PROF 14(COMP METB)on 022 Albumin [Mass/Vol] 3.8 g/dL Normal 3.4-5.0 [facility] Comment on above: Performed By: #### C VDTBH #### [facility] [address] [place] [address] Dr. Grace Abdul Albumin/Globulin [Mass ratio] 1.4 {ratio} Normal [facility] Comment on above: Performed By: #### C VDTBH #### [facility] [address] [place] [address] Dr. Grace Abdul ALP [Catalytic activity/Vol] 53 U/L Normal 46-116 [facility] Comment on above: Performed By: #### C VDTBH #### [facility] [address] [place] [address] Dr. Grace Abdul ALT [Catalytic activity/Vol] 20 U/L Normal 14-59 [facility] Comment on above: Performed By: #### C VDTBH #### [facility] [address] [place] [address] Dr. Grace Abdul Anion gap [Moles/Vol] 12.0 mmol/L Normal [facility] Comment on above: Performed By: #### C VDTBH #### [facility] [address] [place] [address] Dr. Grace Abdul AST [Catalytic activity/Vol] 18 U/L Normal 15-37 [facility] Comment on above: Performed By: #### C VDTBH #### [facility] [address] [place] [address] Dr. Grace Abdul Bilirubin [Mass/Vol] 0.4 mg/dL Normal 0.2-1.0 [facility] Comment on above: Performed By: #### C VDTBH #### [facility] [address] [place] [address] Dr. Grace Abdul Calcium [Mass/Vol] 9.5 mg/dL Normal 8.5-10.1 [facility] Comment on above: Performed By: #### C VDTBH #### [facility] [address] [place] [address] Dr. Grace Abdul Chloride [Moles/Vol] 99 mmol/L Normal 98-107 [facility] Comment on above: Performed By: #### C VDTBH #### [facility] [address] [place] [address] Dr. Grace Abdul CO2 [Moles/Vol] 28.1 mmol/L Normal 21.0-32.0 [facility] Comment on above: Performed By: #### C VDTBH #### [facility] [address] [place] [address] Dr. Grace Abdul Creatinine [Mass/Vol] 1.25 mg/dL Critically high 0.55-1.02 [facility] Comment on above: Performed By: #### C VDTBH #### [facility] [address] [place] [address] Dr. Grace Abdul EGFR-AF BULGARIAN 50 mL/min/1.73m2 Critically low >=60 [facility] Comment on above: Performed By: #### C VDTBH #### [facility] [address] [place] [address] Dr. Grace Abdul EGFR-NON AF BULGARIAN 41 mL/min/1.73m2 Critically low >=60 [facility] Comment on above: Performed By: #### C VDTBH #### [facility] [address] [place] [address] Dr. Grace Abdul Globulin (S) [Mass/Vol] 2.7 g/dL Normal [facility] Comment on above: Performed By: #### C VDTBH #### [facility] [address] [place] [address] Dr. Grace Abdul Glucose [Mass/Vol] 131 mg/dL Critically high 74-106 [facility] Comment on above: Performed By: #### C VDTBH #### [facility] [address] [place] [address] Dr. Grace Abdul Potassium [Moles/Vol] 4.1 mmol/L Normal 3.5-5.1 [facility] Comment on above: Performed By: #### C VDTBH #### [facility] [address] [place] [address] Dr. Grace Abdul Protein [Mass/Vol] 6.5 g/dL Normal 6.4-8.2 [facility] Comment on above: Performed By: #### C VDTBH #### [facility] [address] [place] [address] Dr. Grace Abdul Sodium [Moles/Vol] 135 mmol/L Critically low 136-145 [facility] Comment on above: Performed By: #### C VDTBH #### [facility] [address] [place] [address] Dr. Grace Abdul Urea nitrogen [Mass/Vol] 33.0 mg/dL Critically high 7.0-18.0 [facility] Comment on above: Performed By: #### C VDTBH #### [facility] [address] [place] [address] Dr. Grace Abdul Urea nitrogen/Creatinine [Mass ratio] 26.4 mg/mg Normal [facility] Comment on above: Performed By: #### C VDTBH #### [facility] [address] [place] [address] Dr. Grace Abdul URINE MICROSCOPIC ONLYon BACTERIA NONE SEEN Normal NONE SEEN [facility] Comment on above: Performed By: #### C BC #### [facility] [address] [place] [address] Dr. Grace Abdul Bacteria identified Cx Nom (U) NOT INDICATED Normal [facility] Comment on above: Performed By: #### C BC #### [facility] [address] [place] [address] Dr. Grace Abdul CAST NONE SEEN Normal NONE SEEN [facility] Comment on above: Performed By: #### C BC #### [facility] [address] [address] [address] Grace Abdul Crystals LM Nom (Urine sed) NONE SEEN Normal NONE SEEN [facility] Comment on above: Performed By: #### C BC #### [facility] [address] [address] [address] Grace Abdul Epithelial cells LM Ql (Urine sed) FEW Abnormal NONE SEEN /RARE [facility] Comment on above: Performed By: #### C BC #### [facility] [address] [address] [address] Grace Abdul MUCOUS NONE SEEN Normal NONE SEEN [facility] Comment on above: Performed By: #### C BC #### [facility] [address] [place] [address] Dr. Grace Abdul RBC 0-2 Normal 0-2 [facility] Comment on above: Performed By: #### C BC #### [facility] [address] [place] [address] Dr. Grace Abdul WBC 0-2 Abnormal NONE SEEN [facility] Comment on above: Performed By: #### C BC #### [facility] [address] [place] [address] Dr. Grace Abdul XR CHEST 1 Von 09-13-2021 XR CHEST 1 V EXAMINATION: XR CHES T 1 V HISTORY: Dizziness , shortness of breath COMPARISON: XR chest 08/24/2020 FINDINGS: LUNGS: Mild haziness within left lung base obscuring the lower heart and lateral diaphragm margins. VASCULATURE: No increased pulmonary vasculature. PLEURA: No pneumothorax, effusion, or pleural thickening. CARDIAC: No cardiomegaly or cardiac silhouette abnormality. MEDIASTINUM: No visible mass or adenopathy. BONES: No fracture or visible bone lesion. OTHER: Negative. IMPRESSION: 1. Underexpanded lungs with trace amount of left basilar infiltrates versus atelectasis; new since prior study. Electronically authenticated by: KRANTHI CONNORS Date: 2021-09-13 13:19 Normal [facility] CERV SP W/OBLS/FLEX/EXT 6 OR >on 12-12-2020 CERV SP W/OBLS/FLEX/EXT 6 OR > STUDY: CERV SP W/OBLS/FLEX/EXT 6 OR >; 12/12/2020 9:40 am INDICATION: NECK PAIN. COMPARISON: None. ACCESSION NUMBER(S): [id number] ORDERING CLINICIAN: Aiden Younger TECHNIQUE: AP, lateral, flexion and extension and oblique images of the cervical spine were obtained. FINDINGS: There is exaggeration of the cervical lordosis. There is a minimal spondylolisthesis at C4-C5. And C7-T1. There is disc space narrowing at C5-C6 and C6-C7. There is moderate vertebral body endplate spurring at these levels. There is moderate facet hypertrophy. There appears to be some encroachment on the neural foramina on the left at C5-C6. There is no significant change in alignment with flexion and extension. There is no fracture or bone destruction. There are dense left carotid artery calcifications. COMPARISON OF FINDINGS: IMPRESSION: Moderate DJD. Disc disease. No acute findings. Dense left carotid artery calcifications. Normal [facility] Vital Signs Date Time Vital Sign Value Performing Clinician Aimee pollock 09-21-2022 12:51-0400 Diastolic blood pressure 60 mm[Hg] Carolyn Vanegas MD Work Phone: [facility] 09-21-2022 12:51-0400 Heart rate 67 /min Carolyn Vanegas MD Work Phone: [facility] 09-21-2022 12:51-0400 Systolic blood pressure 153 mm[Hg] Carolyn Vanegas MD Work Phone: [facility] 05-14-2022 14:24-0400 Diastolic blood pressure 87 mm[Hg] Marty Dozier DO Work Phone: [facility] 05-14-2022 14:24-0400 Heart rate 72 /min Marty Dozier DO Work Phone: [facility] 05-14-2022 14:24-0400 Systolic blood pressure 158 mm[Hg] Marty Dozier DO Work Phone: [facility] 05-14-2022 14:22-0400 Body height 152.4 cm Marty Dozier DO Work Phone: [facility] 05-14-2022 [id number] Body weight 76.39 kg Marty Dozier DO Work Phone: [facility] 05-14-2022 14:[id number] SaO2% (BldA) [Mass fraction] 99 % Marty Dozier DO Work Phone: [facility] Encounters Encounter Date Encounter Type Care Provider Facility Start: 01-17-2023 End: 01-18-2023 ambulatory Lyn Quiñones MD [facility]: [facility] Start: 12-27-2022 End: 12-28-2022 ambulatory Lyn Quiñones MD [facility]: [facility] Start: 12-20-2022 End: 12-21-2022 ambulatory Lyn Quiñones MD [facility]: [facility] Start: 11-15-2022 End: 11-16-2022 ambulatory Lyn Quiñones MD Facility: [facility] Start: 09-21-2022 End: 09-21-2022 ambulatory GALINA ROGERS Facility:[facility] Start: 09-21-2022 End: 09-21-2022 Patient encounter procedure Carolyn Vanegas MD Work Phone: Neurosurgery Comment on above: Obesity, Class I, BM I 30-34.9 (Primary Dx); Spinal stenosis, lumbar region with neurogenic claudication Start: 08-19-2022 Chart abstracting None (Historical) Neurology Start: 07-22-2022 ambulatory NARENDRANATH LAKSHMIPATHY . Facility:[facility] Start: 07-16-2022 End: 07-17-[address] GALINA ROGERS . [facility] Start: 06-22-2022 End: 06-22-2022 ambulatory NARENDRANATH LAKSHMIPATHY . Facility:[facility] Start: 06-15-2022 End: 06-16-2022 ambulatory NARENDRANATH LAKSHMIPATHY . Facility:[facility] Start: 06-10-[address] GALINA ROGERS . Facili ty:[facility] Start: 06-01-2022 End: 06-01-2022 ambulatory NARENDRANATH LAKSHMIPATHY . 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 Facility:[facility] Start: 04-13-2022 End: 04-13-[address] NIKO BECKWITH . Facility:[facility] Start: 04-06-2022 End: 04-07-[address] NIKO BECKWITH . Facility:[facility] Start: 04-05-2022 End: 04-06-[address] GALINA ROGERS . Facility:[facility] Start: 04-04-2022 End: 04-04-2022 ambulatory MR CHANTALE SANTOS . Facility:[facility] Start: 03-11-2022 End: 03-12-[address] GALINA ROGERS . Facility:[facility] Start: 02-09-2022 End: 02-09-[address] GALINA ROGERS . Facility:[facility] Start: 01-28-2022 End: 01-29-2022 ambulatory NOEMI SEQUEIRA . Facility:[facility] Start: 01-12-2022 End: 01-12-[address] NIKO BECKWITH . Facility:[facility] Start: 12-31-2021 End: 01-01-2022 ambulatory NOEMI SEQUEIRA . Facility:[facility] Start: 12-25-[address] GALINA ROGERS . Facili ty:[facility] Start: 12-11-2021 End: 12-12-[address] GALINA ROGERS . Facility:[facility] Start: 11-25-2021 End: 11-26-[address] GALINA ROGERS . Facility:[facility] Start: 11-24-2021 End: 11-24-[address] GALINA ROGERS . Facility:[facility] Start: 11-23-2021 End: 11-24-[address] GALINA ROGERS . Facility:[facility] Start: 11-15-2021 End: 11-17-2021 Evaluation and management of inpatient SHAIKH Zaria SHIV Facility:[facility] Start: 11-11-2021 End: 11-11-2021 ambulatory ROGE ALEJO . Facility:[facility] Start: 09-30-2021 End: 10-01-[address] NIKO BECKWITH . Facility:[facility] Start: 09-13-2021 End: 09-13-2021 ambulatory ROGE ALEJO . Facility:[facility] Start: 09-12-2017 End: 09-13-2017 Patient encounter DEFAULT PHYSICIAN Facility:[facility] Plan of Treatment Date Care Activity Detail Author Start: 10-22-2022 Influenza vaccination INFLUENZA (#1) [facility] Start: 04-11-2022 COVID-19 VACCINE (6 - Moderna series) COVID-19 VACCINE (6 - Moderna series) [facility] Start: 02-21-2022 ADVANCE DIRECTIVE DISCUSSION ADVANCE DIRECTIVE DISCUSSION [facility] Start: 02-21-2022 DEPRESSION ASSESSMENT DEPRESSION ASS ESSMENT [facility] Start: 11-12-2017 PNEUMOCOCCAL: 65+ (2 - PPSV23 if available, else PCV20) PNEUMOCOCCAL: 65+ (2 - PPSV23 if available, else PCV20) [facility] Start: 11-12-2017 PNEUMOCOCCAL: 65+ (2 - PPSV23 or PCV20) PNEUMOCOCCAL: 65+ (2 - PPSV23 or PCV20) [facility] Start: 07-22-2017 SHINGRIX VACCINE (2 of 3) MANLEY GRIX VACCINE (2 of 3) [facility] Start: 04-30-2004 BONE DENSITY BONE DENSITY [facility] Start: 04-30-1984 DIABETES SCREEN DIABETES SCREEN [facility] Start: 04-30-1958 Urine microalbumin profile DTAP,TDAP ,TD (1 - Tdap) [facility] Immunizations Immunization Date Immunization Notes Care Provider Armando schwartz 12-02-2021 Influenza, injectabl e, Madin [place] Canine Kidney, preservative free, quadrivalent Marty Dozier DO Work Phone: [facility] 11-28-2020 influenza virus vacc ine, unspecified formulation Marty Dozier DO Work Phone: [facility] 11-29-2019 Seasonal trivalent influenza vaccine, adjuvanted, preservative free Marty Dozier DO Work Phone: [facility] 05-27-2017 zoster vaccine, live Marty Dozier DO Work Phone: [facility] 11-12-2016 pneumococcal conjuga te vaccine, 13 valent Marty Dozier DO Work Phone: [facility] Payers Date Payer Category Payer Private Health Insurance [facility] AARP SUPPLEMENT [id number] 2022-Present [phone] [address] [place] [address] Indemnity [id number] 2004 Medicare [id number] 2004 Unknown 1959 Medicare [id number] 1959 Self-pay 1959 Unknown [id number] 1939 Unknown [id number] 2.840.1.744397.3.579.2 .593 1939 Unknown [id number] .840.1.368769.3.579.2 .593 1939 Unknown [id number] .840.1.997922.3.579.2 .593 1939 Unknown [id number] .16840.1.236740.3.579.2 .593 1939 Unknown [id number] 2.16.840.1.718939.3.579.2 .593 1939 Unknown [id number] 2.16840.1.026532.3.579.2 .593 1939 Unknown [id number] 2.16.840.1.481118.3.579.2 .593 1939 Unknown [id number] 2.16.840.1.034534.3.579.2 .593 1939 Unknown [id number] 2.16.840.1.995997.3.579.2 .593 1939 Unknown [id number] 2.16.840.1.181941.3.579.2 .593 1939 Unknown [id number] 2.16.840.1.531035.3.579.2 .593 1939 Unknown [id number] 2.16.840.1.938886.3.579.2 .593 1939 Unknown [id number] 2.16.840.1.151879.3.579.2 .593 1939 Unknown [id number] 2.16.840.1.526135.3.579.2 .593 1939 Unknown [id number] 2.16.840.1.334628.3.579.2 .593 1939 Unknown [id number] 2.16.840.1.479738.3.579.2 .593 1939 Unknown [id number] 2.16.840.1.225414.3.579.2 .593 1939 Unknown [id number] 2.16.840.1.032037.3.579.2 .593 1939 Unknown [id number] 2.16.840.1.012747.3.579.2 .593 1939 Unknown [id number] 2.16.840.1.242312.3.579.2 .593 1939 Unknown [id number] 2.16.840.1.286219.3.579.2 .593 1939 Unknown [id number] 2.16.840.1.508871.3.579.2 .593 1939 Unknown [id number] 2.16.840.1.303974.3.579.2 .593 1939 Unknown [id number] 2.16.840.1.033049.3.579.2 .593 1939 Unknown [id number] 2.16.840.1.532081.3.579.2 .593 1939 Unknown [id number] 2.16.840.1.191429.3.579.2 .196 1939 Unknown [id number] 2.16.840.1.641200.3.579.2 .196 1939 Unknown [id number] 2.16.840.1.974455.3.579.2 .196 1939 Unknown [id number] 2.16.840.1.405943.3.579.2 .196 Social History Date Type Detail Facility Start: 05-14-2022 Tobacco smoking stat us NHIS Never smoked tobacco [facility] Start: 05-14-2022 Tobacco use and exposure Smoke less tobacco non-user [facility] Start: 05-14-2022 End: 09-21-2022 Alcohol intake Lifetime non-drinker (finding) [facility] Start: 1940 Sex Assigned At Not on file [facility] Start: 05-09-2022 End: 09-21-2022 History of Social function [place] [facility] Start: 05-09-2022 End: 09-21-2022 Tobacco use panel [facility] Adult Depression Scr eening Assessment 2 [facility] Clinical Notes 09-30-2021 to 09-21-2022 Patient InstructionsCarolyn Vanegas MD - 09/21/2022 12:43 PM Naa Alves PA-C - 08/26/2022 11:45 AM EDTTmonika Bowman - 08/19/2022 4:06 PM EDT Note Date & Type Note Facility 09-21-2022 Note HNO ID: [id number] Author: Carolyn Vanegas MD Service: ? Author Type: Physician Type: Progress Notes Filed: 09/21/2022 1:20 PM Note Text: SPINE SURGERY OUTPATIENT CONSULT SERVICE DATE: 09/21/2022 PCP: Galina Rogers MD REFERRING PROVIDER: Galina Rogers MD Consult requested for an opinion regarding the evaluation and treatment of back and leg pain. My final impression and recommendations will be communicated back to the requesting physician by way of the shared medical record or letter via US mail. SUBJECTIVE Alexa Delgado is a 82 year old female presenting with spouse. CHIEF COMPLAINT: back and leg pain HISTORY OF PRESENT ILLNESS: Many years of symptoms, getting progressively worse. Progressed from cane to walker. Very limited in walking. Can't do steps. Can't stand for periods of time. Feels bent over. Bad by the end of the day. Most of the pain is back pain and both hips. Sometimes goes down to knees or feet but not much. Has tried multiple interventions without much help. Urinates frequently at night. Had prior stroke as well. Lives with spouse. PRECIPITATING EVENT: None DURATION OF SYMPTOMS: Greater Than 1 Year DERMATOMAL DISTRIBUTION: Not applicable AMBULATORY STATUS: Impaired Home Distances ANTIPLATELET OR ANTICOAGULATION STATUS: No PREVIOUS SPINAL SURGERY: None ACTIVE PROBLEM LIST Scoliosis, Unspecified Spinal Stenosis, Lumbar Region With Neurogenic Claudication No past medical history on file. No past surgical history on file. No family history on file. Social History Tobacco Use Smoking status: Never Smokeless tobacco: Never Substance Use Topics Alcohol use: Never Drug use: Never ALLERGIES Allergen Reactions Codeine Unknown Penicillins Unknown Propoxyphene Rash, Unknown Headache Decongest Multi-Act* Other: See Comments Pregabalin Intolerance Dizziness Quinamm GI Upset MEDICATIONS: citalopram hydrobromide (CELEXA) 10 mg tablet Take 10 mg by mouth once daily. Treat Depression diclofenac, EC, (VOLTAREN) 75 mg EC tablet Take 75 mg by mouth twice daily. For Arthritis pain isosorbide mononitrate ER (IMDUR) 30 mg 24 hr tablet Take 30 mg by mouth once daily. 1 tablet daily in the AM on an empty stomach Treat for Angina levothyroxine (SYNTHROID) 75 mcg tablet Take 75 mcg by mouth once daily. Patient takes 1 tablet in the AM HYDROcodone-acetaminophen (NORCO) 5-325 mg per tablet Take 1 tablet by mouth twice daily as needed. metoprolol succinate ER (TOPROL XL) 50 mg 24 hr tablet Take 50 mg by mouth twice daily. hydroCHLOROthiazide 25 mg tablet Take 25 mg by mouth once daily. liothyronine (CYTOMEL) 25 mcg tablet Take 25 mcg by mouth once daily. NITROGLYCERIN ORAL Take 0.4 mg by mouth three times daily. 1 tablet by mouth 3x daily As needed for chest pain cyclobenzaprine (FLEXERIL) 5 mg tablet Take 5 mg by mouth twice daily as needed for muscle spasm. aspirin, enteric coated (ASPIRIN, ENTERIC COATED) 81 mg EC tablet Take 81 mg by mouth once daily. MULTIVITAMIN ORAL Take by mouth. Equate with Lycopene Complete Multivitamin calcium carbonate/vitamin D3 (CALTRATE 600 + D ORAL) Take by mouth twice daily. glucosamine HCl/S-Adenosylmet (TRIPLE FLEX MOOD AND JOINT JESSY-E ORAL) Take by mouth twice daily. Tablet contains Glucosamine 1500 mg Chodroitin 800 mg MSM 750 mg 1 tablet twice daily am and pm Flaxseed Oil (OMEGA-3 FLAXSEED OIL) 1,000 mg cap Take 1,000 mg by mouth once daily. fexofenadine (MALORIE ALLERGY) 180 mg tablet Take 180 mg by mouth once daily. MAGNESIUM AMINO ACID CHELATE ORAL Take 250 mg by mouth once daily. At bedtime melatonin 3 mg capsules Take 3 mg by mouth daily at bedtime. acetaminophen (TYLENOL EXTRA STRENGTH) 500 mg tablet Take 500 mg by mouth twice daily. Capsaicin (SALONPAS-HOT) 0.025 % ptmd Apply to affected area. REVIEW OF SYSTEMS: GENERAL: No weight loss or malaise MUSCULOSKELETAL: Negative for joint pain, swelling or muscle pain NEURO: No history of headaches, syncope, paralysis, seizures or tremors Patient Entered Questionnaires Spine Questions 05/09/2022 Pain Location: Lower back Pain Duration: More than 5 years Pain over last 6 months: Every day or nearly every day in the past 6 months Symptoms from neck/cervical spine: Yes Employment Status: Retired Involved in law suit/legal claim: No Spine Red Flags 05/09/2022 Any type of cancer: No Unexplained fever: No Bowel or bladder disfunction: No Unintentional weight loss: No Osteoporosis: No Neck Questionnaires 05/09/2022 Benzel Modified ELOISA Score 10 (A lower score indicates increased pain and issues.) PROMIS Score Percentiles Physical Health 05/09/2022 Physical Function Percentile 2 Sleep Percentile 8 Fatigue Percentile 1 Pain Interference Percentile 1 PROMIS SOCIAL ROLE SCORE 05/09/2022 Social Role Satisfaction Percentile 1 PROMIS Global Health Scale 05/09/2022 Physical Health Percentile 1 (more content not included)... [facility] 09-21-2022 Instructions Carolyn Vanegas MD - 09/21/2022 1:19 PM EDT History, exam and imaging all reviewed. The patient has progressive and refractory symptoms related tot he scoliosis and stenosis. Discussed the findings and the natural history, Unfortunately, surgical intervention is not a good option given the severe scoliosis and the chance of making that worse with any intervention. Offered the chronic pain program and they will consider. Alexa Delgado is not a candidate for surgery at this time. documented in this encounter [facility] 09-21-2022 History of Present illness Narrative SPINE SURGERY OUTPATIENT CONSULT SERVICE DATE: 09/21/2022 PCP: Galina Rogers MD REFERRING PROVIDER: Galina Rogers MD Consult requested for an opinion regarding the evaluation and treatment of back and leg pain. My final impression and recommendations will be communicated back to the requesting physician by way of the shared medical record or letter via [place] mail. SUBJECTIVE Alexa Delgado is a 82 year old female presenting with spouse. CHIEF COMPLAINT: back and leg pain HISTORY OF PRESENT ILLNESS: Many years of symptoms, getting progressively worse. Progressed from cane to walker. Very limited in walking. Can't do steps. Can't stand for periods of time. Feels bent over. Bad by the end of the day. Most of the pain is back pain and both hips. Sometimes goes down to knees or feet but not much. Has tried multiple interventions without much help. Urinates frequently at night. Had prior stroke as well. Lives with spouse. PRECIPITATING EVENT: None DURATION OF SYMPTOMS: Greater Than 1 Year DERMATOMAL DISTRIBUTION: Not applicable AMBULATORY STATUS: Impaired Home Distances ANTIPLATELET OR ANTICOAGULATION STATUS: No PREVIOUS SPINAL SURGERY: None ACTIVE PROBLEM LIST Scoliosis, Unspecified Spinal Stenosis, Lumbar Region With Neurogenic Claudication No past medical history on file. No past surgical history on file. No family history on file. Social History Tobacco Use Smoking status: Never Smokeless tobacco: Never Substance Use Topics Alcohol use: Never Drug use: Never ALLERGIES Allergen Reactions Codeine Unknown Penicillins Unknown Propoxyphene Rash, Unknown Headache Decongest Multi-Act* Other: See Comments Pregabalin Intolerance Dizziness Quinamm GI Upset MEDICATIONS: citalopram hydrobromide (CELEXA) 10 mg tablet Take 10 mg by mouth once daily. Treat Depression diclofenac, EC, (VOLTAREN) 75 mg EC tablet Take 75 mg by mouth twice daily. For Arthritis pain isosorbide mononitrate ER (IMDUR) 30 mg 24 hr tablet Take 30 mg by mouth once daily. 1 tablet daily in the AM on an empty stomach Treat for Angina levothyroxine (SYNTHROID) 75 mcg tablet Take 75 mcg by mouth once daily. Patient takes 1 tablet in the AM HYDROcodone-acetaminophen (NORCO) 5-325 mg per tablet Take 1 tablet by mouth twice daily as needed. metoprolol succinate ER (TOPROL XL) 50 mg 24 hr tablet Take 50 mg by mouth twice daily. hydroCHLOROthiazide 25 mg tablet Take 25 mg by mouth once daily. liothyronine (CYTOMEL) 25 mcg tablet Take 25 mcg by mouth once daily. NITROGLYCERIN ORAL Take 0.4 mg by mouth three times daily. 1 tablet by mouth 3x daily As needed for chest pain cyclobenzaprine (FLEXERIL) 5 mg tablet Take 5 mg by mouth twice daily as needed for muscle spasm. aspirin, enteric coated (ASPIRIN, ENTERIC COATED) 81 mg EC tablet Take 81 mg by mouth once daily. MULTIVITAMIN ORAL Take by mouth. Equate with Lycopene Complete Multivitamin calcium carbonate/vitamin D3 (CALTRATE 600 + D ORAL) Take by mouth twice daily. glucosamine HCl/S-Adenosylmet (TRIPLE FLEX MOOD & JOINT JESSY-E ORAL) Take by mouth twice daily. Tablet contains Glucosamine 1500 mg Chodroitin 800 mg MSM 750 mg 1 tablet twice daily am and pm Flaxseed Oil (OMEGA-3 FLAXSEED OIL) 1,000 mg cap Take 1,000 mg by mouth once daily. fexofenadine (MALORIE ALLERGY) 180 mg tablet Take 180 mg by mouth once daily. MAGNESIUM AMINO ACID CHELATE ORAL Take 250 mg by mouth once daily. At bedtime melatonin 3 mg capsules Take 3 mg by mouth daily at bedtime. acetaminophen (TYLENOL EXTRA STRENGTH) 500 mg tablet Take 500 mg by mouth twice daily. Capsaicin (SALONPAS-HOT) 0.025 % ptmd Apply to affected area. REVIEW OF SYSTEMS: GENERAL: No weight loss or malaise MUSCULOSKELETAL: Negative for joint pain, swelling or muscle pain NEURO: No history of headaches, syncope, paralysis, seizures or tremors Patient Entered Questionnaires Spine Questions 05/09/2022 Pain Location: Lower back Pain Duration: More than 5 years Pain over last 6 months: Every day or nearly every day in the past 6 months Symptoms from neck/cervical spine: Yes Employment Status: Retired Involved in law suit/legal claim: No Spine Red Flags 05/09/2022 Any type of cancer: No Unexplained fever: No Bowel or bladder disfunction: No Unintentional weight loss: No Osteoporosis: No Neck Questionnaires 05/09/2022 Benzel Modified ELOISA Score 10 (A lower score indicates increased pain and issues.) PROMIS Score Percentiles Physical Health 05/09/2022 Physical Function Percentile 2 Sleep Percentile 8 Fatigue Percentile 1 Pain Interference Percentile 1 PROMIS SOCIAL ROLE SCORE 05/09/2022 Social Role Satisfaction Percentile 1 PROMIS Global Health Scale 05/09/2022 Physical Health Percentile 1 Mental Health Percentile 2 Percentiles provide an indication of how the patient's score ranks in relation to the general population. Higher percentile rankings indicate better function/quality of life. 50th percentile is the average of the general population and indicates half of respondents had a worse score. Depression Screening: PHQ-9 05/09/2022 Score 10 PHQ-9 Self-harm Question 05/09/2022 Thoughts that you would be better off , or of hurting yourself in some way 1 PHQ-9 Self-Harm (Item 9) response options: 0 Not at all 1 Several days 2 More than half the days 3 Nearly every day PHQ-9 Levels: 0-4 No to mild depression 5-9 Mild depression 10-14 Moderate depression 15-19 Moderately severe depression 20-27 Severe depression OBJECTIVE: PHYSICAL EXAM There were no vitals taken for this visit. In wheelchair, gait not tested Arthritic changes in changes Left shoulder pain with movement of arm No clear focal weakness Normal tone and bulk Sensation ok Reflexes diminished DATA REVIEW [facility] records independently reviewed Images independently reviewed with the patient Significant scoliosis with apex L3 Marked multi-level degenerative changes with severe stenosis/foraminal narrowing right T12-L1, bilateral L4-5, left L3-4 and moderate left L2-3 ASSESSMENT/PLAN (M48.062) Spinal stenosis, lumbar region with neurogenic claudication History, exam and imaging all reviewed. The patient has progressive and refractory symptoms related tot he scoliosis and stenosis. Discussed the findings and the natural history, Unfortunately, surgical intervention is not a good option given the severe scoliosis and the chance of making that worse with any intervention. Offered the chronic pain program and they will consider. Alexa Delgado is not a candidate for surgery at this time. Consults: Chronic Pain Rehabilitation Therapy (CPRP) Follow up: PRN Medical Decision Making: Problems: Moderate: 1+ chronic illnesses with change and 2+ stable chronic illnesses Data: Unique source(s) for external note(s) reviewed: 2 Unique test result(s) reviewed: 3+ Independent interpretation of test from other physician/QHCP Risk: Moderate: Moderate risk from testing/treatment Medical Decision Making Level: 4 - Moderate documented in this encounter [facility] 08-26-2022 Note HNO ID: [id number] Author: Kassandra Alves PA-C Service: ? Author Type: Physician Copra Sampler Type: Progress Notes Filed: 08/26/2022 11:52 AM Note Text: Per Triage: Alexa Delgado is a 82 year old female that requests evaluation of spine. Per review, they have symptoms of lower back pain. Numbness/tingling right leg. Difficulty walking. Weakness Request: 1st available Referring provider: Galina Rogers MD Patient out of state: no 2nd opinion: no Prior spine surgery: yes 2006 [facility] Address: [address] [place] [id number] CMT: PT Injections Tylenol Hydrocodone Studies (Reports unless indicated) MRI lumbar spine report 08/10/2022: Multilevel mild degenerative disc disease and facet arthropathy of the visible thoracic and lumbar resulting in moderate to marked central canal and foraminal narrowing. Marked dextroscoliosis of the lumbar spine. L4-5 grade 1 anterolisthesis Moderate central canal narrowing at T10-T11. Marked central canal narrowing at T11-T12. Moderate marked central canal narrowing at L1-2, L2-3, L4-5 Lumbar x-ray report 07/16/2022: Severe degenerative changes with joint space narrowing and endplate sclerosis and facet osteoarthropathy. Rotatory dextroscoliosis centered at L3 Disposition: Based on triage, recommend patient be scheduled with surgeon first available deformity surgeon . If patient would like sooner appointment, is it okay to offer appointment with spine surgical MALIK No (If patient is okay to see first available surgeon, please specify dx to aid in appropriate scheduling, such as ?cervical degenerative disease,? ?scoliosis?) If VV, please advise pt to send or upload relevant outside images prior to appt so they will be available for review during the appt If office visit, please advise pt to hand carry relevant images on CD to the appt so they can be reviewed during the appt Kassandra Alves PA-C [facility] 08-26-2022 History of Present illness Narrative Per Triage: Alexa Delgado is a 82 year old female that requests evaluation of spine. Per review, they have symptoms of lower back pain. Numbness/tingling right leg. Difficulty walking. Weakness Request: 1st available Referring provider: Galina Rogers MD Patient out of state: no 2nd opinion: no Prior spine surgery: yes 2006 [facility] Address: [address] [place] [address] CMT: PT Injections Tylenol Hydrocodone Studies (Reports unless indicated) MRI lumbar spine report 08/10/2022: Multilevel mild degenerative disc disease and facet arthropathy of the visible thoracic and lumbar resulting in moderate to marked central canal and foraminal narrowing. Marked dextroscoliosis of the lumbar spine. L4-5 grade 1 anterolisthesis Moderate central canal narrowing at T10-T11. Marked central canal narrowing at T11-T12. Moderate marked central canal narrowing at L1-2, L2-3, L4-5 Lumbar x-ray report 07/16/2022: Severe degenerative changes with joint space narrowing and endplate sclerosis and facet osteoarthropathy. Rotatory dextroscoliosis centered at L3 Disposition: Based on triage, recommend patient be scheduled with surgeon first available deformity surgeon . If patient would like sooner appointment, is it okay to offer appointment with spine surgical MALIK No (If patient is okay to see first available surgeon, please specify dx to aid in appropriate scheduling, such as cervical degenerative disease, scoliosis ) If VV, please advise pt to send or upload relevant outside images prior to appt so they will be available for review during the appt If office visit, please advise pt to hand carry relevant images on CD to the appt so they can be reviewed during the appt Kassandra Alves PA-C Patient name: Alexa Delgado Are you being referred by a [facility] for Spine Health Provider or Pain Management Provider at [facility]? No If answer is YES please schedule directly with surgeon, triage does not need to be completed. Is this a self-referral No If not, who is the Referring Provider Galina Rogers MD Is this a 2nd opinion? No Were you offered surgery? No MRI/CT/myelogram within 12 months? Yes If NO , please refer to medical spine or PCP to complete above imaging, triage does not need to be completed If YES, please ask for the name/address of the facility where the MRI/CT/myelogram was completed: [facility] Address: [address] [place] [address] MRI/CT/myelogram viewable in Epic: No If not, please provide [phone] to fax in imaging reports for review. Also, please inform patient to hand carry imaging disc to appointment. XR (spine) within 12 months: No If YES, please ask for the name/address of the facility where the XR was completed: Dr. Willams's patients: Have you had previous EMG/Nerve Conduction Study, Ultrasound, or MRI for these same symptoms? If YES, please ask for the name/address of the facility where they were completed: Requested provider (First and Last name): UN Are you interested in a virtual visit if offered? No 1. Where are you having symptoms related to this visit? LBP Numbness, Tingling Lower back (R) Leg numbness (R) Thigh Back pain Yes Leg pain No Arm pain No Neck pain No 2. Are you having any of the following symptoms: Difficulty walking Yes Numbness Yes Weakness Yes Trouble using your hands? No 3. Have you had any injections or physical therapy in the last 12 months? Yes If YES then please ask for the name/address of the facility where the injections and/or physical therapy was completed PT Injection [facility] Address: [address] [place] [address] Have you tried any other kinds of non-surgical treatments in the last 12 months? (For example: NSAIDS, muscle relaxants, analgesics, oral steroids, Chiropractor, Acupuncture): Tylenol 4. Are you currently taking daily prescribed narcotic medications for your current symptoms (For example Oxycodone, Hydrocodone, Tramadol, Morphine, Other)? Yes Hydrocodone 5. Have you ad previous spinal surgery for this same symptoms? Yes If YES please ask for the name of facility/address of where the surgery was completed: 2006 [facility] Address: [address] [place] [address] Additional Comments documented in this encounter [facility] 08-19-2022 Note HNO ID: [id number] Author: Micheal Bowman Service: ? Author Type: ? Type: Progress Notes Filed: 08/26/2022 11:52 AM Note Text: Patient name: Alexa Delgado Are you being referred by a [facility] for Spine Health Provider or Pain Management Provider at [facility]? No If answer is YES please schedule directly with surgeon, triage does not need to be completed. Is this a self-referral No If not, who is the Referring Provider Galina Rogers MD Is this a 2nd opinion? No Were you offered surgery? No MRI/CT/myelogram within 12 months? Yes If NO , please refer to medical spine or PCP to complete above imaging, triage does not need to be completed If YES,? please ask for the name/address of the facility where the MRI/CT/myelogram was completed: [facility] Address: [address] [place] [address] MRI/CT/myelogram viewable in Epic: No If not, please provide [phone] to fax in imaging reports for review. Also, please inform patient to hand carry imaging disc to appointment. XR (spine) within 12 months: No If YES,? please ask for the name/address of the facility where the XR was completed: Dr. Willams's patients: Have you had previous EMG/Nerve Conduction Study, Ultrasound, or MRI for these same symptoms? If YES,? please ask for the name/address of the facility where they were completed: Requested provider (First and Last name): UN Are you interested in a virtual visit if offered? No 1. Where are you having symptoms related to this visit? LBP Numbness, Tingling Lower back (R) Leg numbness (R) Thigh Back pain Yes Leg pain No Arm pain No Neck pain No 2. Are you having any of the following symptoms: Difficulty walking Yes Numbness Yes Weakness Yes Trouble using your hands? No 3. Have you had any injections or physical therapy in the last 12 months? Yes If YES then please ask for the name/address of the facility where the injections and/or physical therapy was completed PT Injection [facility] Address: [address] [place] [address] Have you tried any other kinds of non-surgical treatments in the last 12 months? (For example: NSAIDS, muscle relaxants, analgesics, oral steroids, Chiropractor, Acupuncture): Tylenol 4. Are you currently taking daily prescribed narcotic medications for your current symptoms (For example Oxycodone, Hydrocodone, Tramadol, Morphine, Other)? Yes Hydrocodone 5. Have you ad previous spinal surgery for this same symptoms? Yes If YES? please ask for the name of facility/address of where the surgery was completed: 2006 [facility] Address: [address] [place] [address] Additional Comments [facility] 07-16-2022 Note PROCEDURE: XR HIP RT 2 3V W PELVIS COMPARISON: 05/08/2021 HISTORY: Lumbar spondylosis FINDINGS: BONES:No acute fracture or dislocation. Mild bilateral hip osteoarthropathy with joint space narrowing and marginal osteophyte formation. Severe degenerative changes of the spine. Bilateral sacroiliac joint sclerosis . Remote healed fractures left superior and inferior pubic rami SOFT TISSUES:Negative. No visible soft tissue swelling. EFFUSION:None visible. OTHER: Negative. IMPRESSION: Mild bilateral hip osteoarthritis Electronically authenticated by: HERMES MENDOZA Date: 2022-07-16 11:28 [facility] 05-14-2022 Note HNO ID: [id number] Author: Marty Dozier, DO Service: ? Author Type: Physician Type: Progress Notes Filed: 05/15/2022 10:02 PM Note Text: [facility] - Medical Spine Initial Exam SUBJECTIVE HISTORY OF PRESENT ILLNESS: Alexa Delgado is a 82 year old female who presents with a chief complaint of low back pain. Accompanied by her today. Recently treated in outside ED for severe right low back pain. CT abd/pelvis was negative for acute fractures. Was treated with fentanyl, prednisone, muscle relaxant and prescribed Tizanidine q8h. Patient had f/u with outside Pain Management, but has decided to come here for a second opinion regarding her chronic back pain. Patient reports pain across her lower back since she got out of high school. Has had lumbar disc surgery. H/o lumbar scoliosis. Patient had an episode 1 month ago of difficulty walking and noted pain in R>L low back. Upon examination she had pain right abdominal region and had a CT scan, but was only told about changes in her spine, no mention of fractures. 40-50% relief since right lumbar RFA 04/13/22. reports patient sleeps on right side in bed with head of bed elevated and he wonders if this is worse for her. Intermittent pain down RLE laterally to ankle. Ambulates with rollator. Denies bowel/bladder incontinence or saddle anesthesia. PAIN EVALUATION 05/09/20221952 Pain Level: 6 Pain Location: Back Description: Aching;Burning;Sharp;Shooting;So re;Stabbing;Throbbing;Tingling Duration Units: Months Frequency: Continuous Intervention/Comfort measure: Medication;Reposition;Relaxation ;Exercise;Heat;Pillow support;Positioning;Support surface Comments: Spinal Injection, RF Ablation Pain Radiation: As above Aggravating Factors: Prolonged standing Transfers Turning/shifting in bed Alleviating Factors: Medications Pain Ratio: R>L low back Current Treatment: Medications Plano 5-325 mg BID - helps Diclofenac 75 mg BID - helps Tylenol 1000 mg BID - helps Flexeril 5-10 mg bedtime PRN - helps Citalopram Blue Emu - helps Lidocaine patch - helps Therapies Goes to therapy pool and does exercises twice weekly PT HEP for legs at home Prior Treatment: Medications Tizanidine Requip 0.25 mg bedtime Lyrica 25 mg bedtime Testosterone cypionate 75 mg for sarcopenia Prednisone 20 mg Compound cream (Gabapentin 10%, Ketoprofen 10%, Lidocaine 2%, Prilocaine 2%) Therapies PT in the past has helped, has not had since pandemic Prior spine interventions: Dr. Niko Beckwith -04/13/22: Right lumbar RFA L2, L3, L4, L5 - 40-50% relief per patient -02/09/22: Right knee genicular nerve block (medial and lateral superior, inferior medial) (Marcaine 0.125% and 4 mg Dexamethasone to all sites) - 100% relief x 24 hours, ongoing 60% relief as of 03/11/22 - Pt reports helped severe pain, but still has pain -01/28/22 Noemi Sequeira TOLL LINE INSPECTOR: BL Lumbar erector spinae TPI (0.125% Marcaine, 40 mg Kenalog, divided into 3 locations) - helped for 1 day -01/12/22: L2-3 ILESI (Depomedrol 120 mg, total volume 10 cc) - 75% relief x 2 days -May 2021 Cervical RFA - Upon 09/30/21 f/u Pt reported significant relief, but still achiness with extensive lateral rotation -06/02/21: Right C5, C6 C7 C8 MB RFA (80 degrees x 90 seconds) (0.125% Marcaine, Dexamethasone 4 mg, 0.25 cc into each site) -05/26/21: Left C5, C6 C7 C8 MB RFA (80 degrees x 90 seconds) (0.125% Marcaine, Dexamethasone 4 mg, 0.25 cc into each site) - Pt reported improvement of LUE radicular pain from 07/31 to 03/02 -04/21/21: BL C5, C6, C7, C8 MBB (0.125% Marcaine, Dexamethasone 4 mg) 0.25 cc per MB -03/17/21: BL C5, C6, C7, C8 MBB (0.125% Marcaine, Dexamethasone 4 mg) 0.25 cc per MB - 95% relief, able to do more activity including cooking/cleaning/ADLs - ongoing as of 04/17/21 -03/08/21 Noemi Sequeira TOLL LINE INSPECTOR: Left rhomboid TPI (0.125% Marcaine, 40 mg Kenalog) -02/03/21 LESI - moderate relief for 4 days Prior spine surgery: -2006 L4-5 Discectomy Previously treated by: -[facility], previously Dr. Niko Beckwith who is leaving the practice and going forward treatment will be with Dr. Porsha Garcia. Last visit 05/13/22 Dr. Garcia - Patient appears to have chronic pain secondary to residual neurogenic pain involving the right lateral cutaneous branch of the iliohypogastric and myofascial dysfunction. I could not appreciate any facet loading pain clinically on examination today. She has an evaluation at the [facility] tomorrow at the Spine Center. RECOMMENDATIONS: We will see the patient back in the office after she undergoes evaluation there to discuss her treatment plan thereafter. We will see the patient back in the office in approximately four weeks' time or sooner if needed. PMH: Lumbar scoliosis Depression on Negrita (more content not included)... [facility] 05-14-2022 History of Present illness Narrative Images from the original note were not included. [facility] - Medical Spine Initial Exam SUBJECTIVE HISTORY OF PRESENT ILLNESS: Alexa Delgado is a 82 year old female who presents with a chief complaint of low back pain. Accompanied by her today. Recently treated in outside ED for severe right low back pain. CT abd/pelvis was negative for acute fractures. Was treated with fentanyl, prednisone, muscle relaxant and prescribed Tizanidine q8h. Patient had f/u with outside Pain Management, but has decided to come here for a second opinion regarding her chronic back pain. Patient reports pain across her lower back since she got out of high school. Has had lumbar disc surgery. H/o lumbar scoliosis. Patient had an episode 1 month ago of difficulty walking and noted pain in R>L low back. Upon examination she had pain right abdominal region and had a CT scan, but was only told about changes in her spine, no mention of fractures. 40-50% relief since right lumbar RFA 04/13/22. reports patient sleeps on right side in bed with head of bed elevated and he wonders if this is worse for her. Intermittent pain down RLE laterally to ankle. Ambulates with rollator. Denies bowel/bladder incontinence or saddle anesthesia. PAIN EVALUATION 05/09/20221952 Pain Level: 6 Pain Location: Back Description: Aching;Burning;Sharp;Shooting;So re;Stabbing;Throbbing;Tingling Duration Units: Months Frequency: Continuous Intervention/Comfort measure: Medication;Reposition;Relaxation ;Exercise;Heat;Pillow support;Positioning;Support surface Comments: Spinal Injection, RF Ablation Pain Radiation: As above Aggravating Factors: Prolonged standing Transfers Turning/shifting in bed Alleviating Factors: Medications Pain Ratio: R>L low back Current Treatment: Medications Plano 5-325 mg BID - helps Diclofenac 75 mg BID - helps Tylenol 1000 mg BID - helps Flexeril 5-10 mg bedtime PRN - helps Citalopram Blue Emu - helps Lidocaine patch - helps Therapies Goes to therapy pool and does exercises twice weekly PT HEP for legs at home Prior Treatment: Medications Tizanidine Requip 0.25 mg bedtime Lyrica 25 mg bedtime Testosterone cypionate 75 mg for sarcopenia Prednisone 20 mg Compound cream (Gabapentin 10%, Ketoprofen 10%, Lidocaine 2%, Prilocaine 2%) Therapies PT in the past has helped, has not had since pandemic Prior spine interventions: Dr. Niko Beckwith -04/13/22: Right lumbar RFA L2, L3, L4, L5 - 40-50% relief per patient -02/09/22: Right knee genicular nerve block (medial and lateral superior, inferior medial) (Marcaine 0.125% and 4 mg Dexamethasone to all sites) - 100% relief x 24 hours, ongoing 60% relief as of 03/11/22 - Pt reports helped severe pain, but still has pain -01/28/22 Noemi Sequeira TOLL LINE INSPECTOR: BL Lumbar erector spinae TPI (0.125% Marcaine, 40 mg Kenalog, divided into 3 locations) - helped for 1 day -01/12/22: L2-3 ILESI (Depomedrol 120 mg, total volume 10 cc) - 75% relief x 2 days -May 2021 Cervical RFA - Upon 09/30/21 f/u Pt reported significant relief, but still achiness with extensive lateral rotation -06/02/21: Right C5, C6 C7 C8 MB RFA (80 degrees x 90 seconds) (0.125% Marcaine, Dexamethasone 4 mg, 0.25 cc into each site) -05/26/21: Left C5, C6 C7 C8 MB RFA (80 degrees x 90 seconds) (0.125% Marcaine, Dexamethasone 4 mg, 0.25 cc into each site) - Pt reported improvement of LUE radicular pain from 07/31 to 03/02 -04/21/21: BL C5, C6, C7, C8 MBB (0.125% Marcaine, Dexamethasone 4 mg) 0.25 cc per MB -03/17/21: BL C5, C6, C7, C8 MBB (0.125% Marcaine, Dexamethasone 4 mg) 0.25 cc per MB - 95% relief, able to do more activity including cooking/cleaning/ADLs - ongoing as of 04/17/21 -03/08/21 Noemi Sequeira TOLL LINE INSPECTOR: Left rhomboid TPI (0.125% Marcaine, 40 mg Kenalog) -02/03/21 LESI - moderate relief for 4 days Prior spine surgery: -2006 L4-5 Discectomy Previously treated by: -[facility], previously Dr. Niko Beckwith who is leaving the practice and going forward treatment will be with Dr. Porsha Garcia. Last visit 05/13/22 Dr. Garcia - Patient appears to have chronic pain secondary to residual neurogenic pain involving the right lateral cutaneous branch of the iliohypogastric and myofascial dysfunction. I could not appreciate any facet loading pain clinically on examination today. She has an evaluation at the [facility] tomorrow at the Spine Center. RECOMMENDATIONS: We will see the patient back in the office after she undergoes evaluation there to discuss her treatment plan thereafter. We will see the patient back in the office in approximately four weeks' time or sooner if needed. PMH: Lumbar scoliosis Depression on Citalopram H/o CVA/TIA Angina HTN Hypothyroid H/o kidney disease - resolved PSH: Knee surgeries, right replacement 2018, left arthroscopy See below Social Alcohol: none Tobacco: none Illicit drugs: none Home life: Exercise: Water exercise twice weekly YELLOW & BLUE FLAGS No-Neg Attitude; Back Pain is Disabling No-Avoiding Activity (for Fear of Pain) YES-Depression or Anxiety Disorders No-Social Problems No-Substance Use Disorder No-Job Dissatisfaction No-Financial Disincentives Patient Entered Questionnaires Spine Questions 05/09/2022 Pain Location: Lower back Pain Duration: More than 5 years Pain over last 6 months: Every day or nearly every day in the past 6 months Symptoms from neck/cervical spine: Yes Employment Status: Retired Involved in law suit/legal claim: No Spine Red Flags 05/09/2022 Any type of cancer: No Unexplained fever: No Bowel or bladder disfunction: No Unintentional weight loss: No Osteoporosis: No Neck Questionnaires 05/09/2022 Benzel Modified ELOISA Score 10 (A lower score indicates increased pain and issues.) PROMIS Score Percentiles Physical Health 05/09/2022 Physical Function Percentile 2 Sleep Percentile 8 Fatigue Percentile 1 Pain Interference Percentile 1 PROMIS SOCIAL ROLE SCORE 05/09/2022 Social Role Satisfaction Percentile 1 PROMIS Global Health Scale 05/09/2022 Physical Health Percentile 1 Mental Health Percentile 2 Percentiles provide an indication of how the patient's score ranks in relation to the general population. Higher percentile rankings indicate better function/quality of life. 50th percentile is the average of the general population and indicates half of respondents had a worse score. Depression Screening: PHQ-9 05/09/2022 Score 10 PHQ-9 Self Harm 05/09/2022 Question 9 Several days PHQ-9 Self-Harm (Item 9) response options: 0 Not at all 1 Several days 2 More than half the days 3 Nearly every day PHQ-9 Levels: 0-4 No - mild depression 5-9 Mild depression 10-14 Moderate depression 15-19 Moderately severe depression 20-27 Severe depression ACTIVE PROBLEM LIST Scoliosis, Unspecified No past medical history on file. No past surgical history on file. Social History Tobacco Use Smoking status: Never Smokeless tobacco: Never Substance Use Topics Alcohol use: Never Drug use: Never No family history on file. ALLERGIES Allergen Reactions Codeine Unknown Penicillins Unknown Propoxyphene Rash, Unknown Headache Decongest Multi-Act* Other: See Comments Pregabalin Unknown Quinamm GI Upset CURRENT MEDICATIONS: citalopram hydrobromide (CELEXA) 10 mg tablet Take 10 mg by mouth once daily. Treat Depression diclofenac, EC, (VOLTAREN) 75 mg EC tablet Take 75 mg by mouth twice daily. For Arthritis pain isosorbide mononitrate ER (IMDUR) 30 mg 24 hr tablet Take 30 mg by mouth once daily. 1 tablet daily in the AM on an empty stomach Treat for Angina levothyroxine (SYNTHROID) 75 mcg tablet Take 75 mcg by mouth once daily. Patient takes 1 tablet in the AM HYDROcodone-acetaminophen (NORCO) 5-325 mg per tablet Take 1 tablet by mouth twice daily as needed. metoprolol succinate ER (TOPROL XL) 50 mg 24 hr tablet Take 50 mg by mouth twice daily. hydroCHLOROthiazide 25 mg tablet Take 25 mg by mouth once daily. liothyronine (CYTOMEL) 25 mcg tablet Take 25 mcg by mouth once daily. NITROGLYCERIN ORAL Take 0.4 mg by mouth three times daily. 1 tablet by mouth 3x daily As needed for chest pain cyclobenzaprine (FLEXERIL) 5 mg tablet Take 5 mg by mouth twice daily as needed for muscle spasm. aspirin, enteric coated (ASPIRIN, ENTERIC COATED) 81 mg EC tablet Take 81 mg by mouth once daily. MULTIVITAMIN ORAL Take by mouth. Equate with Lycopene Complete Multivitamin calcium carbonate/vitamin D3 (CALTRATE 600 + D ORAL) Take by mouth twice daily. REVIEW OF SYSTEMS: 14 systems reviewed and otherwise negative unless mentioned above. OBJECTIVE: PHYSICAL EXAM BP 158/87 Pulse 72 Ht 152.4 cm (5') Wt 76.4 kg (168 lb 6.4 oz) SpO2 99% BMI 32.89 kg/m GENERAL APPEARANCE: Well nourished, well developed, and no apparent distress. NEURO PSYCH: Patient oriented to person, place, and time. Mood pleasant. Benign affect. CARDIOVASCULAR: Palpable pulses. No edema noted. RESPIRATORY: non-labored breathing, no grunting/flaring/retractions SKIN: Head, neck, trunk, and extremities dry, intact and without lesions. MUSCULOSKELETAL VISUAL INSPECTION Posture: Partially forward bent PALPATION: tenderness to palpation lower lumbar to SI joints BL R>L SPINE ROM: LUMBAR ROM: Limited flexion/extensions, pain worse with extension. Pain with rotation. Severe pain performing sit to supine and supine to sit and with shifting while supine MUSCLE BULK: Normal and symmetrical in the upper & lower extremities. MUSCLE TONE: Normal. MOTOR: 5/5 bilateral LE hip flexion, knee flexion, knee extension, ankle dorsiflexion, plantarflexion, EHL. SENSORY: sensation intact to light touch BLE REFLEXES: 1-2+ bilateral LE LONG TRACT SIGNS: No clonus. GAIT: Slow, partial forward bent. Non-antalgic. Able to stand on toes and heels with support for balance. Balance impaired with standard gait so tandem not tested. PERIPHERAL JOINT ROM: HIP ROM: Full ROM Without Pain SHOULDER ROM: ROM WFL STRAIGHT LEG TEST: negative bilateral Hip: no groin pain with hip maneuvers. Hip flexion, stinchfield, and end range ITA cause R>L low back pain. SI joint: Positive right Rubin. Pain with R>L ITA, thigh thrust, tenderness to palpation. Lumbar facet loading: Pain R>L Data Review: All images/reports listed below were personally reviewed by me unless otherwise indicated. [facility] records independently reviewed Imaging and outside records independently reviewed 04/04/22 CT abd/pelvis with IV contrast, [facility], report: Abdominal wall: Old healed left pelvis fractures. Degenerative changes and scoliosis of the lumbar spine. IMPRESSION: No acute abdominal pathology. No acute inflammatory process. No obstructing urinary tract stone. No evidence for bowel obstruction. 11/15/21 XR abd, [facility], report: No acute osseous abnormality. There is moderate dextrocurvature of the lumbar spine. 05/08/2021 XR right hip/pelvis, [facility], report: Rotatory dextro scoliosis of the lumbar spine with severe degenerative changes. Bilateral sacroiliac joint sclerosis. Mild bilateral hip joint space narrowing. Sclerosis projects along the inferior right femoral head, stable. Remote fractures left superior and inferior pubic rami. Soft tissues negative, no visible soft tissue swelling. No effusion visible. No acute fracture 01/03/20 XR lumbar outside images reviewed, no report: Iliac crest appears to be roughly at L4-5 accounting for scoliosis Flattening of lumbar lordosis Lumbar dextroscoliosis, apex at L3 L3 on L4 right lateral listhesis Severe disc space narrowing throughout lumbar spine Anterior endplate spurring Mild BL hip joint narrowing with possible femoroacetabular osteophytes ASSESSMENT/PLAN DIAGNOSIS: M54.41, G89.29 Chronic bilateral low back pain with right-sided sciatica (primary encounter diagnosis) M54.50 Back pain, lumbosacral M53.3, G89.29 Chronic sacroiliac joint pain M47.816 Lumbar spondylosis M41.9 Scoliosis of lumbar spine, unspecified scoliosis type ASSESSMENT: Alexa Delgado is a 82 year old female with PMH of L4-5 discectomy, R TKA, Lumbar scoliosis, Depression, h/o CVA/TIA, Hypothyroid, Angina, HTN, presenting with chronic low back pain with acute worsening 1 month ago in right low back that led to ED visit due to difficulty walking. Patient has since had right lumbar RFA and reports 40-50% relief. She continues to have pain in right much worse than left lumbosacral back. Reports intermittent pain down RLE laterally to the ankle. She follows with outside Pain Management and has been treated for chronic neck and low back pain. She has underwent many prior spine interventions. LESI seems to provide only days of relief in recent past. Lumbar RFA seems to alleviate some of her pain. Exam today shows severe pain with transfers, shifting in bed. Some pain with lumbar extension/facet loading. Some suggestion of sacroiliac joint pain with provocative maneuvers, but may be non-specific given pain with general movement of lumbosacral/pelvic region. Pain does not localize to groin and hip joints appear to move well so low suspicion for hip involvement. There is no advanced imaging of the lumbar spine available for review today, so cannot comment on specific pathology. Long discussion with patient and her today regarding her symptoms and treatment options. Ultimately I explained that I believe she is getting appropriate care and I would not have anything significantly different to offer her. Given her age, chronicity of pain, and comorbidities, she is not likely a viable surgical candidate. If she does wish for surgical opinion, then could proceed with updated advanced imaging of the lumbar spine, but otherwise would not pursue new imaging at this time. Recommend patient continue to follow with her local pain management provider. Possible interventional recommendations listed below. PLAN: 1) Imaging/Diagnostic Studies: -No new imaging at this time, unless patient is wishing to pursue surgical opinion. I do not know when her last MRI lumbar spine was. -Imaging reviewed as above. 2) Therapy/Rehabilitation: -Continue home exercises and water exercise as tolerated. -Activities and exercise as tolerated. 3) Pharmacological Management: -No changes 4) Spine/[facility] Interventions: -Patient to follow up with her local Pain Management provider for interventions as needed 5) Consultations: -none 6) Follow -up: -f/u with outside Pain Management -Patient instructed to call/seek urgent medical care with worsening of symptoms or change of neurological status. 7) Future treatment considerations: -Interventional procedures for sacroiliac joints -Given lumbosacral pain and intermittent RLE radicular pain in L5 distribution could consider lumbosacral level LESI, cannot comment on exact levels or approaches given no advanced imaging available for review -Spine Surgery consult could be considered SIGNATURE: Marty Dozier DO PATIENT NAME: Alexa Delgado DATE: May 14, 2022 TIME: 3:15 PM documented in this encounter [facility] 05-13-2022 Note CONSULTATION CONSULTATION DATE: 05/13/2022 TO: Dr. Rogers CHIEF COMPLAINT: Includes right sided hip pain, gluteal pain. HISTORY: She reports the pain as being 5-7/10 pain, burning in character with a sharp component, increased with activity such as standing, walking, performing transitioning maneuvers. She feels most comfortable in the semi-recumbent position. MEDICATION: Current medications include Flexeril 5 mg at h.s., gabapentin 200 mg at h.s., diclofenac 75 mg b.i.d., Plano 5 mg b.i.d. EXAM: Notable for the patient having no clinic radiculopathy or myelopathy involving the lower extremities. The patient did have dysesthesia ad hypoesthesia along the distribution of the right lateral cutaneous branch of the iliohypogastric nerve. Also, and equivocally positive right sided Gaenslen's maneuver. Again, this is equivocally positive at best and patient has associated myofascial spasm along the lumbar paravertebral muscles. IMPRESSION: Patient appears to have chronic pain secondary to residual neurogenic pain involving the right lateral cutaneous branch of the iliohypogastric and myofascial dysfunction. I could not appreciate any facet loading pain clinically on examination today. She has an evaluation at the [facility] tomorrow at the Spine Center. RECOMMENDATIONS: We will see the patient back in the office after she undergoes evaluation there to discuss her treatment plan thereafter. We will see the patient back in the office in approximately four weeks' time or sooner if needed. [facility] 04-06-2022 Note CONSULTATION CONSULTATION DATE: 04/06/2022 CHIEF COMPLAINT: Low back pain, severe on the right side. HISTORY OF PRESENT ILLNESS: This is a very pleasant, 81-year-old female who is known to the Pain Clinic. The patient had severe back pain to the point the patient sought ER. This is very much unlike her. In the ER, she received fentanyl, prednisone and was given muscle relaxant. The patient was instructed to take Zanaflex q. 8 hours. We have discontinued that, and the patient has Flexeril, we have substituted that for her. The patient, in the remote past, in 2020, had a rhizotomy radiofrequency ablation along her lumbar spine at the level of 2, 3, 4, 5. The pain that she is having is returning in this area. It is a pressure, sharp sensation. The patient rates the pain as a 6-7/10 subsequent to the treatment received in the ER this last Tuesday. Laying down, walking, transitioning, housework, ADLs, bending, climbing stairs, activities aggravate the pain. The patient uses a walker for ambulation. The patient cannot take NSAIDs secondary to kidney dysfunction also. The patient takes Plano, however, is very controlled and limits it to the point of detriment. Education was done. The patient was instructed to take the Plano to a b.i.d. to t.i.d. basis. The patient continues to use a Salonpas patch. The patient had a CAT scan at the ER which was reviewed in office today. The patient's PAST MEDICAL HISTORY / SURGICAL HISTORY / REVIEW OF SYSTEMS are noted on the chart, along with the MEDICATION LIST / ALLERGIES and the CT. The patient is accompanied by her , who is very attentive. PHYSICAL EXAMINATION: Upon physical examination, this is a pleasant, rather sad, concerned, 81-year-old female who is significantly uncomfortable. The patient ambulates with a walker. VITAL SIGNS: 185/81 with a heart rate of 69. At a height of 6', the patient weighs 169 pounds. HEAD: Atraumatic. The patient has a left facial droop from a remote history. HEART: The patient has negative orthopnea. LUNGS: Negative dyspnea. ABDOMEN: Protuberant, distended. BACK: Significant paravertebral spasming is noted along the right lumbar paravertebrals. Extension, compression, direct palpation aggravate the patient's pain. The patient has significant loss of axial height with severe degenerative changes throughout her lumbar spine. EXTREMITIES: Slight pedal edema is noted in her right ankle compared to her left. The patient has significant disuse atrophy and sarcopenia in the lower extremities bilaterally. The patient uses the arms of the chair to be able to stand into erect posture. MUSCULOSKELETAL: Functional, however, diminished bilaterally. NEUROLOGICALLY: No clear cut radicular symptomatology is noted. PSYCHIATRICALLY: The patient is distraught. IMPRESSION: Severe lumbar spondylosis, lumbar degenerative disc disease, lumbar scoliosis, lumbar paravertebral spasm, sarcopenia. PLAN: We considered the possibility of surgical intervention. The patient would be a very poor candidate, given the patient's overall physical condition. We have instructed the patient to discontinue the Zanaflex and to take the Flexeril on a b.i.d. basis. The patient may increase the Plano to 5/325 t.i.d. We will schedule the patient for a repeat lumbar radiofrequency ablation on the right hand side at the level of L2-L3 and L4-L5. The patient has had successful pain relief with increasing function and decreasing narcotics since 08/26/2020. The patient and her understand and would like to proceed. In addition t this, the patient will receive testosterone cypionate 75 mg for her sarcopenia. Education was done with regards to the constipation effect with narcotics. The patient will discontinue the 20 mg prednisone that she is taking at present on prior to the procedure. CC: Galina Rogers M.D. [facility] 03-11-2022 Note CONSULTATION CONSULTATION DATE: 03/11/2022 HISTORY OF PRESENT ILLNESS: This is an 81-year-old female who returns to the clinic status post right genicular nerve block done on 02/09/2022. The patient states she gained 100% relief for 24 hours. Today, she would state approximately 60% relief. She does have some right lateral nerve pain along that right knee that is aggravated by prolonged standing, housework, transitioning on bed and changes in the weather. She did receive, on 01/28/2022, a lumbar trigger point injection which only gave improvement for 24 hours. Medications include Plano 5/325 b.i.d., diclofenac 75 mg b.i.d., citalopram and a multivitamin regimen. She does ambulate with a walker and her is present today. Patient's REVIEW OF SYSTEMS / PAST MEDICAL HISTORY / ALLERGIES and IMAGES have been reviewed and noted on the chart. PHYSICAL EXAM: VITAL SIGNS: Blood pressure 181/79, heart rate is 69. Temperature is 97.8. She is 5', weighs 77 kg. GENERAL IMPRESSION: Pleasant, appropriate, no acute distress. FOCUSED EXAM - BACK: Range of motion is functional in lateral rotation and flexion/extension. Paravertebral muscles are non-spasmodic. Rubin's point is non-tender. No spinal axial pain reproduced upon lumbar facet compression. MUSCULOSKELETAL: Muscle atrophy noted bilateral lower extremities. Patient walks steadily with a wheeled walker. Right leg anterior tibialis weakness, right greater than left. NEUROLOGICAL: Radicular sensory is intact. Negative polyneuropathy. DIAGNOSIS: Right knee pain, chronic lower back pain. PLAN: We will refill her Plano 5/325 b.i.d. We will prescribe her Buderer cream with gabapentin, ketorolac and prilocaine/lidocaine to be placed over her right knee. We will trial Requip 0.25 mg q.h.s. We will see the patient in the clinic in three months' time unless otherwise indicated. Patient agrees with the plan. [facility] 01-28-2022 Note CONSULTATION CONSULTATION DATE: 01/28/2022 HISTORY OF PRESENT ILLNESS: This is a very pleasant, 81-year-old female returning to the clinic status post lumbar epidural steroid injection completed on 01/12/2022. The patient was afforded 75% relief for two days. Today, she is having 6/10 pain diffusely across her lower back, as well as the medial aspect of her right knee. The right knee was replaced years ago. Twisting, turning, pushing, pulling, stairs and bending aggravate her pain. She does use heat daily which decreases her pain. Medications include Plano 5/325 b.i.d., Flexeril 5 mg b.i.d., diclofenac 75 mg b.i.d. and a vitamin regimen. Patient's REVIEW OF SYSTEMS / PAST MEDICAL HISTORY / ALLERGIES and IMAGES have been reviewed and they are noted on the chart. PHYSICAL EXAM: VITAL SIGNS: Blood pressure 182/72, heart rate is 69. Temperature is 97.5. She is 5' and weighs 79 kg. GENERAL APPEARANCE: Pleasant, appropriate, no acute distress. FOCUSED EXAM - BACK: Range of motion is functional in lateral rotation and flexion/extension. Trigger points identified; two to the right lower lumbar and one to the left lower lumbar. Compression reproduces patient's pain symptomatology, positive jump response. No reproduction of spinal axial pain. Rubin's point is non-tender. MUSCULOSKELETAL: Motor is 4/5 bilaterally. Muscle atrophy noted bilateral lower extremities. Patient does walk with a wheeled walker and steadily. Right knee range of motion is intact. Compression along the medial genicular nerve reproduces patient's pain symptomatology. NEUROLOGICAL: Radicular sensory is intact. Negative polyneuropathy. Patient is cognitively intact. DIAGNOSIS: Bilateral paravertebral spasms, chronic lower back pain, lumbar degenerative disc disease, lumbar spondylosis and right knee pain. PLAN: Patient will receive bilateral lumbar trigger point injections in the office, which he does consent to. We will refill the Plano 5/325 b.i.d. We will pre-authorize for a right genicular nerve block under fluoroscopy. Patient will follow up in the clinic thereafter. [facility] 01-28-2022 Note CONSULTATION PROCEDURE DATE: 01/28/2022 PREOPERATIVE DIAGNOSIS: Bilateral erector spinae paravertebral spasms. POSTOPERATIVE DIAGNOSIS: Bilateral erector spinae paravertebral spasms. PROCEDURE: Bilateral lumbar trigger point injections. Subsequent to obtaining informed consent, the patient was placed in an upright standing forward flexion position. Alcohol prep was used to sterilize the site. A 25 gauge needle with 0.125% Marcaine, total of 40 mg of Kenalog was divided into three locations. Needle was placed to rest inside each trigger zone. Negative heme. Medication was injected in a fan-like pattern, total three locations. Patient tolerated the procedure well with no overt complications. She will be followed up in the office. [facility] 12-31-2021 Note CONSULTATION CONSULTATION DATE: 12/31/2021 HISTORY OF PRESENT ILLNESS: This is pleasant, 81-year-old female, accompanied by her to the clinic for a three month follow up for her chronic lower back pain. Today, she rates her pain 3-4/10 at rest. It will increase to 6/10 with activity. Her states he has noticed her physical function decline over the last several months. In October, she had COVID which laid her up for quite a while. The patient has increased use of her walker within the house. She reports all physical activity is aggravating, with the exception of lying down in bed. The use of heat and pool exercises are very helpful. At her last appointment on 09/30/2021, she was put on a low dose trial of gabapentin at night time, which the patient discontinued on her own, as she did not like how it made her feel. Current medications include diclofenac 75 mg b.i.d., Plano 5/325 b.i.d., citalopram, Flexeril and multivitamin regimen. The patient does state that she breaks her Plano in half and the most she takes in a day is 1.5 pills. She denies any recent falls or injuries. Patient's REVIEW OF SYSTEMS / PAST MEDICAL HISTORY / ALLERGIES and IMAGES have been reviewed and they are noted on the chart. PHYSICAL EXAM: VITAL SIGNS: Blood pressure is 156/72. Heart rate is 75. Temperature is 97.5. She is 5', weighs 78 kg. GENERAL IMPRESSION: Pleasant, appropriate, no acute distress. FOCUSED EXAM - BACK: Range of motion is guarded in lateral rotation and flexion/extension. Paravertebral muscles are non-spasmodic. Multiple areas of spinal axial pain as well as sacroiliac pain upon compression of various areas. Rubin's point is tender bilaterally. MUSCULOSKELETAL: Diffuse muscle atrophy noted throughout. Patient uses a wheeled walker with a very low antalgic gait. NEUROLOGICAL: Diffuse patchy hypoesthesia bilateral lower extremities to the level of the ankles. Blunted patellar and Achilles reflexes. DIAGNOSIS: Lumbar radiculitis, chronic lower back pain, lumbar degenerative disc disease. PLAN: We will move forward with a lumbar epidural steroid injection which historically afforded her significant relief. Did recommend continuing with her vitamin regimen as well as Boost supplements. For convenience, post procedure, we will follow up with her via telephone. Patient and agrees with the plan of care and would like to move forward. [facility] 09-30-2021 Note CONSULTATION CONSULTATION DATE: 09/30/2021 This is a very [id number] female accompanied by her returning to the clinic today for a 3-month follow-up. The patient was last seen on 07/02/2021 which at that time was a follow-up for her cervical RFA of C5, C6 and C7, T1. The patient states significant relief but still experiences some achiness with extensive lateral rotation. She does pool therapy 3 times a week and feels that it is greatly beneficial to her lower back, hips and her neck. Activities that aggravate her pain are prolonged sitting, standing, walking, evening hours, housework, stairs and surgical activity. The patient states she has her good days and, on those days, she may overdo it, resulting in subsequent day to be very uncomfortable. She does apply heat which is very beneficial. Current medications include diclofenac 50 mg b.i.d., Plano 5/325 b. i.d. and Tylenol. She does use blue emu cream which is beneficial as well. She does walk with a wheeled walker. REVIEW OF SYSTEMS, PAST MEDICAL HISTORY, ALLERGIES AND IMAGES: Have been reviewed and noted in the chart. PHYSICAL EXAM: VITAL SIGNS: Blood pressure 154/77, heart rate is 88. Height is 5', weighs 78. 4 kg. GENERAL APPEARANCE: Pleasant, appropriate, jovial today as is her . No acute distress. FOCUSED EXAM: NECK: Range of motion is decreased in lateral rotation to the left but functional to the right. Flexion and extension is intact. No reproduction of spinoaxial pain to the posterior elements of the cervical facets indicating successful RFA. Cervical, trapezius, splenius capitis muscles are non-spasmodic. MUSCULOSKELETAL: Motor is intact bilateral upper extremities, 4 out of 5, right slightly weaker than left. 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 Gross motor and fine motor movements are intact. NEUROLOGICAL: Patchy, diffuse neuropathy along C3, C7 and C8 dermatomes bilaterally to the fingertips. Not chronic but episodic. Plus 1 bilateral brachioradialis reflexes. Lower extremities with plus 1 patellar Achilles reflexes. DIAGNOSIS: Cervicalgia, cervical degenerative disk, cervical spondylosis and chronic lower back pain. PLAN: After discussing with the patient and the regarding her upper extremity neuropathic pain to her fingertips, we will trial vary low-dose Lyrica at 25 mg q.h.s. Refill for her Plano 5/325 b.i.d. will be sent as well. The patient is to continue with her vitamin regimen which she is currently compliant with, as well as heat application and pool exercises. The patient will be followed up in the office in three months' time unless otherwise indicated. The patient agrees with the plan of care. [facility] Evaluation note Diagnosis Chronic bilateral low back pain with right-sided sciatica- Primary Back pain, lumbosacral Lumbago Chronic sacroiliac joint pain Disorders of sacrum Lumbar spondylosis Lumbosacral spondylosis without myelopathy Scoliosis of lumbar spine, unspecified scoliosis type documented in this encounter [facility] Spinal stenosis, lumbar region with neurogenic claudication- Primary Spondylolisthesis, lumbar region Other idiopathic scoliosis, lumbar region documented in this encounter [facility] Diagnosis Obesity, Class I, BMI 30-34.9- Primary Obesity, unspecified Spinal stenosis, lumbar region with neurogenic claudication documented in this encounter [facility] Summary Purpose Family History No Family History Records FoundNo Family History Records FoundNo Family History Records FoundNo Family History Records FoundNo Family History Records Found Advance Directives No Advanced Directives Records FoundNo Advanced Directives Records FoundNo Advanced Directives Records FoundNo Advanced Directives Records FoundNo Advanced Directives Records Found Reason for Referral Specialty Diagnoses / Procedures Referred By Jimmy bang Referred To Contact [facility] Diagnoses Spinal stenosis, lumbar region with neurogenic claudication Procedures CONSULT TO [facility] OFFICE/OUTPATIENT [facility] 60-74 MINUTES Carolyn Vanegas MD [address] [place] [address] Referral ID Status Reason Start Date Expiration Date Visits Requested Visits Authorized [id number] Pending Review PCP Requested Referral 09/21/2022 09/21/2023 1 1 Additional Source Comments INFORMATION SOURCE (unrecogn ized section and content) DATE CREATED AUTHOR 09/13/2017 [facility] DATE CREATED AUTHOR AUTHOR'S ORGANIZ ATION 12/13/2020 [facility] DATE CREATED AUTHOR AUTHOR'S ORGANIZ ATION 07/30/2022 [facility] DATE CREATED AUTHOR AUTHOR'S ORGANIZ ATION 09/22/2022 [facility] DATE CREATED AUTHOR AUTHOR'S ORGANIZ ATION 01/21/2023 [facility] Source Comments (unrecognize d section and content) In the event this informatio n is protected by the Federal Confidentiality of Alcohol and Drug Abuse Patient Records regulations: The Federal rules restrict any use of the information to criminally investigate or prosecute any alcohol or drug abuse patient.[facility] the event this information is protected by the Federal Confidentiality of Alcohol and Drug Abuse Patient Records regulations: The Federal rules restrict any use of the information to criminally investigate or prosecute any alcohol or drug abuse patient.[facility] the event this information is protected by the Federal Confidentiality of Alcohol and Drug Abuse Patient Records regulations: The Federal rules restrict any use of the information to criminally investigate or prosecute any alcohol or drug abuse patient.[facility] Reason for Visit (unrecogniz ed section and content) Reason Comments New Patient Evaluation Low Back Pain Reason Comments New Patient Care Teams (unrecognized sec tion and content) Elevator Repairer Apprentice Relationship Specialty Start Date End Date Galina Rogers MD [address] [place] [phone] PCP - General Family Medicine 05/14/22 Arsh De Leon Jr., DO [address] [facility] [address] [place] [address] Referring Orthopedics 05/03/22 Porsha Garcia [address] [id number] Pain Management 05/14/22 AlexandreanastacioArsh Jr., DO [address] [place] [address] Orthopedics 05/14/22 Elevator Repairer Apprentice Relationship Specialty Start Date End Date Galina Rogers MD [address] [place] [facility] [address] PCP - General Family Medicine 05/14/22 Arsh De Leon Jr., DO [address] [place] [address] Referring Orthopedics 05/03/22 Porsha Garcia [address] [place] [phone] Pain Management 05/14/22 Arsh De Leon Jr., DO [address] [place] [address] Orthopedics 05/14/22 Galina Rogers MD [address] [place] [facility] [address] Referring Family Medicine 08/11/22 Elevator Repairer Apprentice Relationship Specialty Start Date End Date Galina Rogers MD [address] [place] [facility] [address] PCP - General Family Medicine 05/14/22 Arsh De Leon Jr., DO [address] [place] [address] Referring Orthopedics 05/03/22 ShermiArmen santillanranneto [address] [place] [phone] Pain Management 05/14/22 Arsh De Leon Jr., DO [address] [place] [address] Orthopedics 05/14/22 Galina Rogers MD [address] [place] [address] Referring Family Medicine 08/11/22 FOR RECORDS PERTAINING TO PATIENTS WHO ARE OR HAVE BEEN ENROLLED IN A CHEMICAL DEPENDENCY/SUBSTANCEABUSE PROGRAM, SOME INFORMATION MAY BE OMITTED. This clinical summary was aggregated from multiple sources. Caution should be exercised in using it in the provision of clinical care. This summary normalizes information from multiple sources, and as a consequence, information in this document may materially change the coding, format and clinical context of patient data. In addition, data may be omitted in some cases. CLINICAL DECISIONS SHOULD BE BASED ON THE PRIMARY CLINICAL RECORDS. [facility] sharing[employer]it [facility]. provides no warranty or guarantee of the accuracy or completeness of information in this document.
== END 2023-04-04 11:58 | disposition home or self-care (01) ==
LOC: RAD 11:57
PROVIDERS: PCP Family Medicine; Visit Provider Family Medicine
DX: E03.9 Hypothyroidism, unspecified (principal)
CPT/HCPCS: 73502

== ENCOUNTER 2023-04-06 13:43 | Outpatient (OUT) | payer MEDICARE, SELFPAY ==
[2023-04-06 14:26] LABS: Alanine Aminotransferase 27 U/L (14-59); Albumin Globulin Ratio 0.9; Albumin Level 3.3 g/dL (3.4-5.0); Alkaline Phosphatase 79 U/L (46-116); Anion Gap 9.8; Aspartate Amino Transferase 23 U/L (15-37); BUN Creatinine Ratio 25.7; Bilirubin Total 0.4 mg/dL (0.2-1.0); Calcium 9.6 mg/dL (8.5-10.1); Carbon Dioxide 32.9 mmol/L (21.0-32.0); Chloride 102 mmol/L (98-107); Estimated GFR (African America >60 (>=60); Estimated GFR (Non-African Ame 50 (>=60); Globulin 3.5 g/dL; Glucose 109 mg/dL (74-106); Potassium 3.7 mmol/L (3.5-5.1); Sodium 141 mmol/L (136-145); Total Protein 6.8 g/dL (6.4-8.2)
[2023-04-06 14:30] LABS: Free T4 0.85 ng/dL (0.76-1.46)
== END 2023-04-06 13:44 | disposition home or self-care (01) ==
LOC: LAB 13:48
PROVIDERS: PCP Family Medicine; Visit Provider Family Medicine
DX: E03.9 Hypothyroidism, unspecified (principal); I10 Essential (primary) hypertension; I50.30 Unspecified diastolic (congestive) heart failure
CPT/HCPCS: 36415; 80053; 83880; 84439; 84443

== ENCOUNTER 2023-04-14 13:19 | Outpatient (OUT) | payer MEDICARE, SELFPAY ==
--- OUTSIDE RECORDS SUMMARY | 2023-04-11 09:53 | XMS_ITS | CCD ---
Author Name Unknown Address [facility] [address] [place] [address] Organization [facility] Care Team Providers Care [employer] Name Role Phone PHYSICIAN, DEFAULT Unavailable Unavailable PHYSICIAN, DEFAULT Unavailable Unavailable Haley Matos DO, Arsh Frey Unavailable Galina Rogers MD Primary Care Provider [phone] Lakshmipathy, Narendranath Unavailable Haley Matos DO, George Cajetan Unavailable ESTELA ., DR MOJICA Primary Care Unavailable HOY ., DR MOJICA Attending Unavailable HOY ., DR MOJICA Consulting Unavailable HOY ., DR MOJIAC Admitting Unavailable LAKSHMIPATHY ., NARROSA Consulting Laura [...] DR MOJICA Attending Unavailable HOY ., DR MJOICA Consulting Unavailable HOY ., DR MOJICA Admitting [...] NOEMI Consulting Unavailable BECKWITH ., DR NIKO Ausitn Attending Unavailable BECKWITH ., DR NIKO Austin [...] Unavailable HOY ., DR MOJICA Consulting Unavailable RAMEY, DR HERMES Jean Baptiste Consulting Unavailable BECKWITH [...] Codeine; Translations: [CODEINE] Drug Allergy 3 Unknown [facility] (4 sources) Penicillins; Translations: [PENICILLINS] Drug Allergy 3 Unknown [facility] (4 sources) pregabalin; Translations: [PREGABALIN] Drug Allergy 3 Intolerance [facility] Work Phone: (4 sources) Propoxyphene; Translations: [PROPOXYPHENE] Drug Allergy 3 Rash, Unknown [facility] (4 sources) quiNINE; Translations: [QUINAMM] Drug Allergy 3 GI Upset [facility] (5 sources) Decongest Multi-Action; Translations: [Decongest Multi-Action] Drug Allergy 3 Other: See Comments [facility] (1 source) Acetaminophen / HYDROcodone Drug Allergy [facility] (2 sources) Codeine Drug Allergy 3 [facility] (1 source) Fluconazole Drug Allergy [facility] (2 sources) Penicillins Drug allergy (disorder) 3 [facility] (1 source) pregabalin Drug Allergy [facility] (2 sources) Propoxyphene Drug Allergy [facility] (1 source) quiNINE Drug Allergy [facility] Medications Completed/Discontinued Medications Medication Drug Class(es) [...] above: Take by mouth twice daily. 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 Normal [facility] XR LSPINE 2_3 VIEWSon 2022 [...] with rotatory dextroscoliosis Electronically authenticated by: HERMES MENODZA Date: 2022-07-16 11:34 Normal [facility] CNOVon 05-14-2022 CNOV Office Visit (SPMESH ) ALEXA DELGADO ([id number]) 1940 F Date Time Provider Department 05/14/22 2:30 PM MARTY DOZIER [facility] During your visit today, we recorded the following information about you: Pulse Blood pressure Weight Height 72/minute 158/87 76.4 kg 1.524 m Marty Dozier DO 05/15/2022 10:02 PM Signed [facility] Neurological [facility] - Medical Spine [...] Ratio: R>L low back Current Treatment: Medications [place] 5-325 mg BID - helps Diclofenac 75 [...] but still has pain -01/28/22 Noemi Sequeira PATIENT ADMITTING REPRESENTATIVE: BL Lumbar erector spinae TPI (0.125% Marcaine, [...] ongoing as of 04/17/21 -03/08/21 Noemi Sequeira PATIENT ADMITTING REPRESENTATIVE: Left rhomboid TPI (0.125% Marcaine, 40 mg Kenalog) -02/03/21 LESI - moderate relief for 4 days Prior spine surgery: -2006 L4-5 Discectomy Previously treated by: -[facility], previously Dr. Niko Beckwith [...] today. She has an evaluation at the [facility] tomorrow at the [facility]. RECOMMENDATIONS: We will see the pat (more content not included)... Normal [facility] CULTURE URINEon 04-05-2022 CULTURE URINE Culture Observations : LIGHT GROWTH OF MIXED GENITAL ALANIS. NO POTENTIAL PATHOGENS SEEN. Normal [facility] Comment on above: Performed By: #### U RCX ####[facility] [address] [place] [address]Dr. Grace Abdul UA RANDOM W/MICROSCOPICon BACTERIA NONE SEEN Normal NONE SEEN [facility] Comment on above: Performed By: #### U AMIC ####[facility] [address] [place] [address]Dr. Grace Abdul Bilirubin Ql (U) Negative Normal NEGATIVE [facility] Comment on above: Performed By: #### U AMIC ####[facility] [address] [place] [address]Dr. Grace Abdul CAST NONE SEEN Normal NONE SEEN [facility] Comment on above: Performed By: #### U AMIC ####[facility] [address] [place], [place] [address]Dr. Grace Abdul Clarity (U) CLEAR Normal CLEAR [facility] Comment on above: Performed By: #### U AMIC ####[facility] Ac[address]oldai[address] [place], [place] [address]Dr. Grace Abdul Color (U) YELLOW Normal YELLOW [facility] Comment on above: Performed By: #### U AMIC ####[facility] Iowurgiqer[address] [place], [place] [address]Dr. Grace Abdul Crystals LM Nom (Urine sed) NONE SEEN Normal NONE SEEN [facility] Comment on above: Performed By: #### U AMIC ####[facility] [address] [place], [place] [address]Dr. Grace Abdul Epithelial cells LM Ql (Urine sed) RARE Normal NONE SEEN /RARE [facility] Comment on above: Performed By: #### U AMIC ####[facility] Ugmoptzgts[address] [place], [place] [address]Dr. Grace Abdul Glucose Ql (U) Negative Normal NEGATIVE [facility] Comment on above: Performed By: #### U AMIC ####[facility] R[address]xaz[address] [place], [place] [address]Dr. Grace Abdul Hemoglobin Ql (U) MODERATE Abnormal NEGATIVE [facility] Comment on above: Performed By: #### U AMIC ####[facility] [address]pre[address] [place], [place] [address]Dr. Grace Abdul Ketones Ql (U) TRACE Abnormal NEGATIVE [facility] Comment on above: Performed By: #### U AMIC ####[facility] [address]fc[address] [place] [address]Dr. Grace Abdul LEUKOCYTES TRACE Abnormal NEGATIVE [facility] Comment on above: Performed By: #### U AMIC ####[facility] [address] [place] [address]Dr. Grace Abdul MUCOUS NONE SEEN Normal NONE SEEN [facility] Comment on above: Performed By: #### U AMIC ####[facility] [address] [place], [place] [address]Dr. Grace Abdul Nitrite Ql (U) Negative Normal NEGATIVE [facility] Comment on above: Performed By: #### U AMIC ####[facility] Kstpsulumm[address] [place], [place] [address]Dr. Grace Abdul pH (U) 5.0 [pH] Normal 5-9 [facility] Comment on above: Performed By: #### U AMIC ####[facility] Xrehlsg[address] [place], [place] [address]Dr. Grace Abdul RBC 0-2 Normal 0-2 [facility] Comment on above: Performed By: #### U AMIC ####[facility] Uaez[address] [place], [place] [address]Dr. Grace Abdul SPEC GRAVITY 1.015 Normal 1.005-<=1.025 [facility] Comment on above: Performed By: #### U AMIC ####[facility] Bxfs[address]lsxn[address] [place], [place] [address]Dr. Grace Abdul UA PROTEIN Negative Normal NEGATIVE/ TRACE [facility] Comment on above: Performed By: #### U AMIC ####[facility] [address]yr[address]rich[address] [place], [place] [address]Dr. Grace Abdul Urobilinogen Qn (U) 0.2 {Ashley'U}/dL Normal 0.2 - 1. 0 [facility] Comment on above: Performed By: #### U AMIC ####[facility] Wekotwelf[address] [place], [place] [address]Dr. Grace Abdul WBC 0-2 Abnormal NONE SEEN [facility] Comment on above: Performed By: #### U AMIC ####[facility] [address] [place] [address]Dr. Grace Abdul CBC AUTO DIFFon 04-04-2022 BASO # 0.0 103/ul Normal 0.0-0.1 [facility] Comment on above: Performed By: #### C BC ####[facility] [address] [place] [address]Dr. Benitalee ann Abdul Basophils/100 WBC (Bld) 0.4 % Normal 0.2-2.0 [facility] Comment on above: Performed By: #### C BC ####[facility] [address] [place] [address]Dr. Garce Franko EO # 0.1 103/ul Normal 0.0-0.7 [facility] Comment on above: Performed By: #### C BC ####[facility] Am[address] [place], [place] [address]Dr. Benitalee ann Abdul Eosinophils/100 WBC (Bld) 1.3 % Normal 0.9-7.0 [facility] Comment on above: Performed By: #### C BC ####[facility] Aerzbffvao[address] [place], [place] [address]Dr. Grace Abdul Erythrocyte distribution width (RBC) [Ratio] 13.7 % Normal 11.0-15.0 [facility] Comment on above: Performed By: #### C BC ####[facility] Ahq[address]ns[address] [place], [place] [address]Dr. Grace Abdul Hematocrit (Bld) [Volume fraction] 37.2 % Normal 36.0-48.0 [facility] Comment on above: Performed By: #### C BC ####[facility] [address] [place], [place] [address]Dr. Grace Abdul Hemoglobin (Bld) [Mass/Vol] 12.4 g/dL Normal 12.0-16.0 [facility] Comment on above: Performed By: #### C BC ####[facility] [address] [place], [place] [address]Dr. Grace Abdul IG # 0.02 10e3/ul Normal 0.00-0.03 [facility] Comment on above: Performed By: #### C BC ####[facility] [address] [place] [address]Dr. Grace Abdul IG % 0.4 % Normal 0.0-0.5 [facility] Comment on above: Performed By: #### C BC ####[facility] [address] [place] [address]Dr. Grace Abdul LYMPH # 0.8 103/ul Critically low 1.2-3.8 [facility] Comment on above: Performed By: #### C BC ####[facility] [address] [place] [address]Dr. Grace Abdul Lymphocytes/100 WBC (Bld) 13.9 % Critically low 20.5-60.0 [facility] Comment on above: Performed By: #### C BC ####[facility] [address] [place] [address]Dr. Grace Abdul MANUAL DIFF REQ NO Normal [facility] Comment on above: Performed By: #### C BC ####[facility] [address] [place] [address]Dr. Grace Abdul MCH (RBC) [Entitic mass] 30.5 pg Normal 26.7-34.0 [facility] Comment on above: Performed By: #### C BC ####[facility] [address] [place] [address]Dr. Grace Abdul MCHC (RBC) [Mass/Vol] 33.3 g/dL Normal 29.9-35.2 [facility] Comment on above: Performed By: #### C BC ####[facility] [address] [place] [address]DrLisette Abdul MCV (RBC) [Entitic vol] 91.4 fL Normal 81.0-99.0 [facility] Comment on above: Performed By: #### C BC ####[facility] [address] [place] [address]DrLisette Abdul MONO # 0.7 103/ul Normal 0.3-0.8 [facility] Comment on above: Performed By: #### C BC ####[facility] [address] [place] [address]Dr. Grace Abdul Monocytes/100 WBC (Bld) 13.5 % Critically high 1.7-12.0 [facility] Comment on above: Performed By: #### C BC ####[facility] [address] [place] [address]Dr. Grace Abdul NEUT # 3.8 103/ul Normal 1.4-6.5 [facility] Comment on above: Performed By: #### C BC ####[facility] [address]xs[address] [place] [address]Dr. Grace Abdul Neutrophils/100 WBC (Bld) 70.5 % Normal 43.0-75.0 [facility] Comment on above: Performed By: #### C BC ####[facility] [address] [place] [address]Dr. Grace Abdul Platelet mean volume (Bld) [Entitic vol] 9.0 fL Critically low 9.5-13.5 [facility] Comment on above: Performed By: #### C BC ####[facility] [address] [place] [address]Dr. Grace Abdul PLT 283 103/ul Normal 150-450 [facility] Comment on above: Performed By: #### C BC ####[facility] [address] [place] [address]Dr. Grace Abdul RBC 4.07 106/ul Critically low 4.20-5.40 [facility] Comment on above: Performed By: #### C BC ####[facility] [address] [place] [address]Dr. Graec Abdul WBC 5.4 103/ul Normal 4.0-11.0 [facility] Comment on above: Performed By: #### C BC ####[facility] [address] [place] [address]Dr. Grace Abdul CT ABD/PELV W CONon 04-04-19 [...] EMILY NAVARRETE Date: 2022-04-04 16:59 Normal [facility] ER URINE PROFILEon 3 Bilirubin Ql (U) Negative Normal NEGATIVE [facility] Comment on above: Performed By: #### ROBERT FELDER ####[facility] [address] [place] [id number]. Grace Abdul Clarity (U) CLEAR Normal CLEAR [facility] Comment on above: Performed By: #### E ROBERT ELLISON ####[facility] [address] [place] [id number] Abdul Color (U) LT. YELLOW Normal YELLOW [facility] Comment on above: Performed By: #### GINA FELDERRO ####[facility] [address] [place] [address]Dr. Grace HIGGINS A micrscopic examination will be performed if indicated. Normal [facility] Comment on above: Performed By: #### Anthony ELLISON UMICRO ####[facility] [address] [place] [address]Dr. Grace Abdul Glucose Ql (U) Negative Normal NEGATIVE [facility] Comment on above: Performed By: #### GINA FELDERRO ####[facility] [address] [place] [address]Dr. Grace Abdul Hemoglobin Ql (U) SMALL Abnormal NEGATIVE [facility] Comment on above: Performed By: #### GINA FELDERRO ####[facility] X[address]ius[address] [place] [address]Dr. Grace Abdul Ketones Ql (U) Negative Normal NEGATIVE [facility] Comment on above: Performed By: #### GINA FELDERRO ####[facility] E[address] [place], [place] [address]Dr. Grace Abdul LEUKOCYTES TRACE Abnormal NEGATIVE [facility] Comment on above: Performed By: #### GINA FELDERRO ####[facility] [address]cas[address] [place] [address]Dr. Grace Abdul Nitrite Ql (U) Negative Normal NEGATIVE [facility] Comment on above: Performed By: #### GINA FELDERRO ####[facility] [address] [place] [address]Dr. Grace Abdul pH (U) 7.5 [pH] Normal 5-9 [facility] Comment on above: Performed By: #### GINA FELDERRO ####[facility] [address] [place] [address]Dr. Grace Abdul SPEC GRAVITY 1.005 Normal 1.005-<=1.025 [facility] Comment on above: Performed By: #### GINA FELDERRO ####[facility] [address] [place] [address]Dr. Grace Abdul UA PROTEIN Negative Normal NEGATIVE/ TRACE [facility] Comment on above: Performed By: #### ROBERT FELDER ####[facility] [address] [place] [address]Dr. Grace Abdul UR MICRO IND INDICATED Normal [facility] Comment on above: Performed By: #### ROBERT FELDER ####[facility] [address]ks[address] [place] [address]Dr. Grace Abdul Urobilinogen Qn (U) 0.2 {Ashley'U}/dL Normal 0.2 - 1. 0 [facility] Comment on above: Performed By: #### ROBERT FELDER ####[facility] [address] [place] [address]Dr. Grace Abdul LIPASEon 04-04-2022 Lipase [Catalytic activity/Vol] 115.0 U/L Normal 73.0-393.0 [facility] Comment on above: Performed By: #### C JOETBZaria #### [facility] [address] [place] [address] [address] Grace Abdul PROF 14(COMP METB)on 023 Albumin [Mass/Vol] 3.6 g/dL Normal 3.4-5.0 [facility] Comment on above: Performed By: #### Lakia DIAZTBZaria #### [facility] [address] [place] [address] [address] Grace Abdul Albumin/Globulin [Mass ratio] 1.1 {ratio} Normal [facility] Comment on above: Performed By: #### C VDTBH #### [facility] [address] [place] [address] [address] Grace Abdul ALP [Catalytic activity/Vol] 74 U/L Normal 46-116 [facility] Comment on above: Performed By: #### C VDTBH #### [facility] [address] [place] [address] [address] Grace Abdul ALT [Catalytic activity/Vol] 23 U/L Normal 14-59 [facility] Comment on above: Performed By: #### C VDTBH #### [facility] [address] [place] [address] [address] Grace Abdul Anion gap [Moles/Vol] 12.1 mmol/L Normal [facility] Comment on above: Performed By: #### C VDTBH #### [facility] [address] [place] [address] [address] Grace Abdul AST [Catalytic activity/Vol] 21 U/L Normal 15-37 [facility] Comment on above: Performed By: #### C VDTBH #### [facility] [address] [place] [address] [address] Grace Abdul Bilirubin [Mass/Vol] 0.2 mg/dL Normal 0.2-1.0 [facility] Comment on above: Performed By: #### C VDTBH #### [facility] [address] [place] [address] [address] Grace Abdul Calcium [Mass/Vol] 9.3 mg/dL Normal 8.5-10.1 [facility] Comment on above: Performed By: #### C VDTBH #### [facility] [address] [place] [address] [address] Grace Abdul Chloride [Moles/Vol] 99 mmol/L Normal 98-107 [facility] Comment on above: Performed By: #### C VDTBH #### [facility] [address] [place] [address] [address] Grace Abdul CO2 [Moles/Vol] 31.2 mmol/L Normal 21.0-32.0 [facility] Comment on above: Performed By: #### C VDTBH #### [facility] [address] [place] [address] [address] Grace Abdul Creatinine [Mass/Vol] 1.22 mg/dL Critically high 0.55-1.02 [facility] Comment on above: Performed By: #### C VDTBH #### [facility] [address] [place] [address] [address] Grace Abdul EGFR-AF UKRAINIAN 51 mL/min/1.73m2 Critically low >=60 [facility] Comment on above: Performed By: #### C VDTBH #### [facility] [address] [place] [address] [address] Grace Abdul EGFR-NON AF UKRAINIAN 42 mL/min/1.73m2 Critically low >=60 [facility] Comment on above: Performed By: #### C VDTBH #### [facility] [address] [place] [address] [address] Grace Abdul Globulin (S) [Mass/Vol] 3.3 g/dL Normal [facility] Comment on above: Performed By: #### C VDTBH #### [facility] [address] [place] [address] [address] Grace Abdul Glucose [Mass/Vol] 115 mg/dL Critically high 74-106 [facility] Comment on above: Performed By: #### C VDTBH #### [facility] [address] [place] [address] Dr. Grace Abdul Potassium [Moles/Vol] 3.3 mmol/L Critically low 3.5-5.1 [facility] Comment on above: Performed By: #### C VDTBH #### [facility] [address] [place] [address] Dr. Grace Abdul Protein [Mass/Vol] 6.9 g/dL Normal 6.4-8.2 [facility] Comment on above: Performed By: #### C VDTBH #### [facility] [address] [place] [address] Dr. Grace Abdul Sodium [Moles/Vol] 139 mmol/L Normal 136-145 [facility] Comment on above: Performed By: #### C VDTBH #### [facility] [address] [place] [address] Dr. Grace Abdul Urea nitrogen [Mass/Vol] 23.0 mg/dL Critically high 7.0-18.0 [facility] Comment on above: Performed By: #### C VDTBH #### [facility] [address] [place] [address] Dr. Grace Abdul Urea nitrogen/Creatinine [Mass ratio] 18.9 mg/mg Normal [facility] Comment on above: Performed By: #### C VDTB #### [facility] [address] [place] [address] [address] Grace Abdul URINE MICROSCOPIC ONLYon BACTERIA NONE SEEN Normal NONE SEEN [facility] Comment on above: Performed By: #### Anthony ELLISON UMICRO ####[facility] [address] [place] [address]Dr. Grace Abdul Bacteria identified Cx Nom (U) NOT INDICATED Normal [facility] Comment on above: Performed By: #### Anthony ELLISON UMICRO ####[facility] [address] [place] [address]Dr. Grace Abdul CAST NONE SEEN Normal NONE SEEN [facility] Comment on above: Performed By: #### Anthony ELLISON UMICRO ####[facility] [address] [place] [address]Dr. Grace Abdul Crystals LM Nom (Urine sed) NONE SEEN Normal NONE SEEN [facility] Comment on above: Performed By: #### Anthony ELLISON UMICRO ####[facility] [address] [place] [address]Dr. Grace Abdul Epithelial cells LM Ql (Urine sed) RARE Normal NONE SEEN /RARE [facility] Comment on above: Performed By: #### Anthony ELLISON UMICRO ####[facility] [address] [place] [address]Dr. Grace Abdul MUCOUS NONE SEEN Normal NONE SEEN [facility] Comment on above: Performed By: #### E RUJimenez, UMICRO ####[facility] [address] [place] [address]Dr. Grace Abdul RBC 0-2 Normal 0-2 [facility] Comment on above: Performed By: #### E RUR, UMICRO ####[facility] [address] [place] [address]Dr. Grace Abdul WBC 0-2 Abnormal NONE SEEN [facility] Comment on above: Performed By: #### E RUJimenez UMICRO ####[facility] [address] [place] [id number]. Grace Abdul BNPon 12-11-2021 Natriuretic peptide B (Bld) [Mass/Vol] 665.0 pg/mL Normal <=1,800.0 [facility] Comment on above: Performed By: #### B MP #### [facility] [address] [place], [place] [address] Dr. Grace Abdul CBC AUTO DIFFon 12-11-2021 BASO # 0.0 103/ul Normal 0.0-0.1 [facility] Comment on above: Performed By: #### C BC ####[facility] [address] [place] [address]DrLisette Abdul Basophils/100 WBC (Bld) 0.5 % Normal 0.2-2.0 [facility] Comment on above: Performed By: #### C BC ####[facility] [address] [place] [address]Dr. Grace Abdul EO # 0.1 103/ul Normal 0.0-0.7 [facility] Comment on above: Performed By: #### C BC ####[facility] [address] [place] [address]Dr. Grace Abdul Eosinophils/100 WBC (Bld) 1.9 % Normal 0.9-7.0 [facility] Comment on above: Performed By: #### C BC ####[facility] [address] [place] [address]Dr. Grace Abdul Erythrocyte distribution width (RBC) [Ratio] 13.4 % Normal 11.0-15.0 [facility] Comment on above: Performed By: #### C BC ####[facility] [address] [place], [place] [address]Dr. Grace Abdul Hematocrit (Bld) [Volume fraction] 36.2 % Normal 36.0-48.0 [facility] Comment on above: Performed By: #### C BC ####[facility] [address] [place], [place] [address]DrLisette Abdul Hemoglobin (Bld) [Mass/Vol] 11.9 g/dL Critically low 12.0-16.0 [facility] Comment on above: Performed By: #### C BC ####[facility] [address] [place] [address]DrLisette Abdul IG # 0.01 10e3/ul Normal 0.00-0.03 [facility] Comment on above: Performed By: #### C BC ####[facility] [address]ctbz[address] [place] [address]DrLisette Abdul IG % 0.2 % Normal 0.0-0.5 [facility] Comment on above: Performed By: #### C BC ####[facility] [address]wm[address] [place] [address]DrLisette Abdul LYMPH # 0.5 103/ul Critically low 1.2-3.8 [facility] Comment on above: Performed By: #### C BC ####[facility] [address]rsnml[address] [place] [address]DrLisette Abdul Lymphocytes/100 WBC (Bld) 11.5 % Critically low 20.5-60.0 [facility] Comment on above: Performed By: #### C BC ####[facility] [address] [place] [address]DrLisette Abdul MANUAL DIFF REQ NO Normal [facility] Comment on above: Performed By: #### C BC ####[facility] [address]uwivpynv[address] [place] [address]DrLisette Abdul MCH (RBC) [Entitic mass] 31.6 pg Normal 26.7-34.0 [facility] Comment on above: Performed By: #### C BC ####[facility] S[address]ecetf[address]168 [place] [address]DrLisette Abdul MCHC (RBC) [Mass/Vol] 32.9 g/dL Normal 29.9-35.2 [facility] Comment on above: Performed By: #### C BC ####[facility] [address]nycxgsfq[address] [place] [address]DrLisette Abdul MCV (RBC) [Entitic vol] 96.0 fL Normal 81.0-99.0 [facility] Comment on above: Performed By: #### C BC ####[facility] [address] [place] [address] Grace Abdul MONO # 0.6 103/ul Normal 0.3-0.8 [facility] Comment on above: Performed By: #### C BC ####[facility] Putarxebtv[address] [place] [address]DrLisette Abdul Monocytes/100 WBC (Bld) 14.4 % Critically high 1.7-12.0 [facility] Comment on above: Performed By: #### C BC ####[facility] [address] [place], [place] [address]DrLisette Joylee ann Franko NEUT # 3.0 103/ul Normal 1.4-6.5 [facility] Comment on above: Performed By: #### C BC ####[facility] [address] [place], [place] [address]DrLisette Abdul Neutrophils/100 WBC (Bld) 71.5 % Normal 43.0-75.0 [facility] Comment on above: Performed By: #### C BC ####[facility] Nx[address]ose[address] [place], [place] [address]DrLisette Grace Franko Platelet mean volume (Bld) [Entitic vol] 9.2 fL Critically low 9.5-13.5 [facility] Comment on above: Performed By: #### C BC ####[facility] S[address] [place], [place] [address]DrLisette Joylee ann Franko PLT 290 103/ul Normal 150-450 [facility] Comment on above: Performed By: #### C BC ####[facility] [address]wn[address] [place], [place] [address]DrLisette Abdul RBC 3.77 106/ul Critically low 4.20-5.40 [facility] Comment on above: Performed By: #### C BC ####[facility] [address] [place], [place] [address]DrLisette Abdul WBC 4.2 103/ul Normal 4.0-11.0 [facility] Comment on above: Performed By: #### C BC ####[facility] [address]sp[address] [place] [address]Dr. Grace Abdul FREE THYROXINE INDEX T7on FTI 2.63 Normal 1.30-4.50 [facility] Comment on above: Performed By: #### B MP #### [facility] [address] [address] [address] Grace Abdul T3U 35.0 % Normal 30.0-39.0 [facility] Comment on above: Performed By: #### B MP #### [facility] [address] [address] [address] Grace Abdul T4 [Mass/Vol] 7.50 ug/dL Normal 4.80-13.90 [facility] Comment on above: Performed By: #### B MP #### [facility] [address] [address] [address] Grace Abdul GLYCOHEMOGLOBIN A1Con 2021 ADA RECOMMENDATION SEE BELOW Normal [facility] Comment on above: Result Comment: ADA RECOMMENDED LIMIT 4.0 - 6.0 ADA THERAPEUTIC TARGET < 7.0 ACTION SUGGESTED > 7.0 Performed By: #### A 1C ####[facility] [address]tl[address]lm[address] [place] [address]Dr. Grace Abdul Glucose [Mass/Vol] 111 mg/dL Normal [facility] Comment on above: Performed By: #### A 1C ####[facility] [address] [place] [address]DrLisette Abdul HbA1c (Bld) [Mass fraction] 5.5 % Normal 4.5-6.2 [facility] Comment on above: Performed By: #### A 1C ####[facility] [address]csfqhm[address] [place] [address]DrLisette Abdul IRONon 12-11-2021 Iron [Mass/Vol] 50.0 ug/dL Normal 50.0-170.0 [facility] Comment on above: Performed By: #### I KASANDRA WEBSTER VITB12 ####[facility] [address] [place], [place] [address]FeDr. Grace Abdul LIPID PROFILEon 12-11-2021 CHOL-HDL RATIO NORM SEE BELOW Normal [facility] Comment on above: Result Comment: 3.3 - 4.4 LOW RISK 4.4 - 7.1 AVERAGE RISK 7.1 - 11.0 MODERATE RISK >11.0 HIGH RISK Performed By: #### B MP #### [facility] [address] [address] [address] Grace Abdul Cholesterol [Mass/Vol] 182 mg/dL Normal <=200 [facility] Comment on above: Performed By: #### B MP #### [facility] [address] [address] [address] Grace Abdul Cholesterol in HDL [Mass/Vol] 60 mg/dL Normal 40-60 [facility] Comment on above: Performed By: #### B MP #### [facility] [address] [address] [address] Grace Abdul Cholesterol in LDL [Mass/Vol] 101.2 mg/dL Normal [facility] Comment on above: Performed By: #### B MP #### [facility] [address] [address] [address] Grace Abdul Cholesterol.total/Ch olesterol in HDL [Mass ratio] 3.0 {ratio} Normal [facility] Comment on above: Performed By: #### B MP #### [facility] [id number] Grace Abdul HDL NORMAL > or = 60 mg/dl - LO W CARDIOVASCULAR RISK <40 mg/dl - HIGH CARDIOVASCULAR RISK Normal [facility] Comment on above: Performed By: #### B MP #### [facility] [id number] Grace Abdul LDL CALC NORMAL SEE BELOW Normal [facility] Comment on above: Result Comment: <100 mg/dl OPTIMAL 100 - 129 mg/dl NEAR OR ABOVE OPTIMAL 130 - 159 mg/dl BORDERLINE HIGH 160 - 189 mg/dl HIGH >190 mg/dl VERY HIGH Performed By: #### B MP #### [facility] [address] [place] [address] Dr. Grace Abdul Triglyceride [Mass/Vol] 104 mg/dL Normal <=150 [facility] Comment on above: Performed By: #### B MP #### [facility] [address] [place] [address] Dr. Grace Abdul VLDL CALC 20.8 mg/dL Normal [facility] Comment on above: Performed By: #### B MP #### [facility] [address] [place] [address] Dr. Grace Abdul PROF 14(COMP METB)on 12-11- 022 Albumin [Mass/Vol] 3.5 g/dL Normal 3.4-5.0 [facility] Comment on above: Performed By: #### B MP #### [facility] [address] [place] [address] Dr. Grace Abdul Albumin/Globulin [Mass ratio] 1.0 {ratio} Normal [facility] Comment on above: Performed By: #### B MP #### [facility] [address] [place] [address] Dr. Grace Abdul ALP [Catalytic activity/Vol] 55 U/L Normal 46-116 [facility] Comment on above: Performed By: #### B MP #### [facility] [address] [place] [address] Dr. Grace Abdul ALT [Catalytic activity/Vol] 21 U/L Normal 14-59 [facility] Comment on above: Performed By: #### B MP #### [facility] [address] [place] [address] Dr. Grace Abdul Anion gap [Moles/Vol] 9.3 mmol/L Normal [facility] Comment on above: Performed By: #### B MP #### [facility] [address] [place] [address] Dr. Grace Abdul AST [Catalytic activity/Vol] 21 U/L Normal 15-37 [facility] Comment on above: Performed By: #### B MP #### [facility] [address] [place] [address] Dr. Grace Abdul Bilirubin [Mass/Vol] 0.3 mg/dL Normal 0.2-1.0 [facility] Comment on above: Performed By: #### B MP #### [facility] [address] [address] [address] Grace Abdul Calcium [Mass/Vol] 9.5 mg/dL Normal 8.5-10.1 [facility] Comment on above: Performed By: #### B MP #### [facility] [address] [address] [address] Grace Abdul Chloride [Moles/Vol] 102 mmol/L Normal 98-107 [facility] Comment on above: Performed By: #### B MP #### [facility] [address] [place] [address] Dr. Grace Abdul CO2 [Moles/Vol] 28.5 mmol/L Normal 21.0-32.0 [facility] Comment on above: Performed By: #### B MP #### [facility] [address] [address] [address] Grace Abdul Creatinine [Mass/Vol] 1.04 mg/dL Critically high 0.55-1.02 [facility] Comment on above: Performed By: #### B MP #### [facility] [address] [address] [address] Grace Abdul EGFR-AF UKRAINIAN >60 Normal >=60 [facility] Comment on above: Performed By: #### B MP #### [facility] [address] [address] [address] Grace Abdul EGFR-NON AF UKRAINIAN 51 mL/min/1.73m2 Critically low >=60 [facility] Comment on above: Performed By: #### B MP #### [facility] [address] [address] [address] Grace Abdul Globulin (S) [Mass/Vol] 3.5 g/dL Normal [facility] Comment on above: Performed By: #### B MP #### [facility] [address] [address] [address] Grace Abdul Glucose [Mass/Vol] 102 mg/dL Normal 74-106 [facility] Comment on above: Performed By: #### B MP #### [facility] [address] [address] [address] Grace Abudl Potassium [Moles/Vol] 3.8 mmol/L Normal 3.5-5.1 [facility] Comment on above: Performed By: #### B MP #### [facility] [address] [address] [address] Grace Abdul Protein [Mass/Vol] 7.0 g/dL Normal 6.4-8.2 [facility] Comment on above: Performed By: #### B MP #### [facility] [address] [address] [address] Grace Abdul Sodium [Moles/Vol] 136 mmol/L Normal 136-145 [facility] Comment on above: Performed By: #### B MP #### [facility] [address] [address] [address] Grace Abdul Urea nitrogen [Mass/Vol] 20.0 mg/dL Critically high 7.0-18.0 [facility] Comment on above: Performed By: #### B MP #### [facility] [address] [address] [address] Grace Abdul Urea nitrogen/Creatinine [Mass ratio] 19.2 mg/mg Normal [facility] Comment on above: Performed By: #### B MP #### [facility] [address] [address] [address] Grace Abdul TSHon 12-11-2021 TSH 0.247 uIU/mL Critically low 0.358-3.740 [facility] Comment on above: Performed By: #### B MP #### [facility] [address] [address] [address] Grace Abdul VITAMIN B12on 12-11-2021 Cobalamin (Vitamin B12) [Mass/Vol] 762.0 pg/mL Normal 193.0-986.0 [facility] Comment on above: Performed By: #### I DARIN, VITLETTY, VITB12 ####[facility] [address] [place] [address]Dr. Grace Abdul VITAMIN D 25 OHon 12-11-2021 VIT D 25-OH 54.9 ng/mL Normal [facility] Comment on above: Performed By: #### I DARIN VITLETTY, VITB12 ####[facility] [address] [place], [place] [address]Vh. Grace Abdul VIT D RANGES SEE BELOW Normal [facility] Comment on above: Result Comment: <20 ng/mL Vit D deficient 20 - <30 ng/mL Vit D insufficient 30 - 100 ng/mL Vit D sufficient >100 ng/mL Potential Toxicity Performed By: #### I DARIN VITAD, VITB12 ####[facility] [address] [place] [id number]. Grace Abdul MG MAMM SCREEN 3D CLEMENCIA CADon 11-25-2021 MG MAMM SCREEN 3D CLEMENCIA CAD Patient: ALEXA DELGADO Exam Date: 11/25/2021 : 1940 Gender:F Ordering : DR GALINA ROGERS . Admission #: [id number] Family : DR ELOISA MORALES Order #: [id number] CLICK HERE TO VIEW EXAM RADIOLOGY REPORT [...] Treatments None Family Cancers None LOCATION: [facility] BREAST COMPOSITION: Scattered areas fibroglandular density. FINDINGS: [...] MD on 11/25/2021 at 14:14 Normal [facility] CULTURE URINEon 11-24-2021 CULTURE URINE Culture Observations : LIGHT GROWTH OF MIXED GENITAL ALANIS. NO POTENTIAL PATHOGENS SEEN. Normal [facility] Comment on above: Performed By: #### U RCX ####[facility] [address] [place] [address]Dr. Grace Abdul GI PANEL (PCR)on 11-24-2021 Adenovirus F 40/41 Not detected Normal NOT DETECTED [facility] Comment on above: Performed By: #### C BC #### [facility] [address] [place] [address] Dr. Grace Abdul Astrovirus Not detected Normal NOT DETECTED [facility] Comment on above: Performed By: #### C BC #### [facility] [address] [place] [address] Dr. Grace Guthrie Diff toxin A/B Not detected Normal NOT DETECTED [facility] Comment on above: Performed By: #### C BC #### [facility] [address] [place] [address] Dr. Grace Abdul Campylobacter Not detected Normal NOT DETECTED [facility] Comment on above: Performed By: #### C BC #### [facility] [address] [place] [address] Dr. Grace Abdul Cryptosporidium Not detected Normal NOT DETECTED [facility] Comment on above: Performed By: #### C BC #### [facility] [address] [place] [address] Dr. Grace Abdul Cyclos. Cayetanensis Not detected Normal NOT DETECTED [facility] Comment on above: Performed By: #### C BC #### [facility] [address] [place] [address] Dr. Grace Abdul E. Coli O157 Not Applicable Normal Not Applicable [facility] Comment on above: Performed By: #### C BC #### [facility] [address] [place] [address] Dr. Grace Abdul E. histolytica Not detected Normal NOT DETECTED [facility] Comment on above: Performed By: #### C BC #### [facility] [address] [place] [address] Dr. Grace Abdul EAEC Not detected Normal NOT DETECTED [facility] Comment on above: Performed By: #### C BC #### [facility] [address] [place] [address] Dr. Grace Abdul EIEC Not detected Normal NOT DETECTED [facility] Comment on above: Performed By: #### C BC #### [facility] [address] [place] [address] Dr. Grace Abdul EPEC Not detected Normal NOT DETECTED [facility] Comment on above: Performed By: #### C BC #### [facility] [address] [place] [address] Dr. Grace Abdul ETEC Not detected Normal NOT DETECTED [facility] Comment on above: Performed By: #### C BC #### [facility] [address] [place] [address] Dr. Grace Abdul G. Lamblia Not detected Normal NOT DETECTED [facility] Comment on above: Performed By: #### C BC #### [facility] [address] [place] [address] Dr. Grace MCKEON CONTROLS PASSED Normal [facility] Comment on above: Performed By: #### C BC #### [facility] [address] [place] [address] Dr. Grace [facility] HEADER GI PANEL BACTERIA Normal T [facility] Comment on above: Performed By: #### C BC #### [facility] [address] [place] [address] Dr. Grace SANDERS ECOLI GI PANEL DIARRHEAGEN IC E.COLI / SHIGELLA Normal [facility] Comment on above: Performed By: #### C BC #### [facility] [address] [place] [address] Dr. Grace SANDERS INFO SEE BELOW [facility] Comment on above: Result Comment: EAEC - Enteroaggregative E. Coli EPEC- Enteropathogenic E. Coli ETEC- Enterotoxigenic E. Coli lt/st STEC- Shigella-like toxin-producing E. Coli stx1/stx2 EIEC- Shigella/Enteroinvasive E. Coli Performed By: #### C BC #### [facility] [address] [place] [address] Dr. Grace SANDERS PARASITES GI PANEL PARASITES Normal [facility] Comment on above: Performed By: #### C BC #### [facility] [address] [place] [address] Dr. Grace SANDERS VIRUS GI PANEL VIRUSES Normal [facility] Comment on above: Performed By: #### C BC #### [facility] [address] [place] [address] Dr. Grace Abdul Norovirus GI/GII Not detected Normal NOT DETECTED [facility] Comment on above: Performed By: #### C BC #### [facility] [address] [place] [address] Dr. Grace Abdul P. Shigelloides Not detected Normal NOT DETECTED [facility] Comment on above: Performed By: #### C BC #### [facility] [address] [place] [address] Dr. Grace Abdul Rotavirus A Not detected Normal NOT DETECTED [facility] Comment on above: Performed By: #### C BC #### [facility] [address] [place] [address] Dr. Grace Abdul Salmonella Not detected Normal NOT DETECTED [facility] Comment on above: Performed By: #### C BC #### [facility] [address] [place] [address] Dr. Grace Abdul Sapovirus Not detected Normal NOT DETECTED [facility] Comment on above: Performed By: #### C BC #### [facility] [address] [place] [address] Dr. Grace Abdul STEC Not detected Normal NOT DETECTED [facility] Comment on above: Performed By: #### C BC #### [facility] [address] [place] [address] Dr. Grace Abdul Vibrio Not detected Normal NOT DETECTED [facility] Comment on above: Performed By: #### C BC #### [facility] [address] [place] [address] Dr. Grace Abdul Vibrio Cholera Not detected Normal NOT DETECTED [facility] Comment on above: Performed By: #### C BC #### [facility] [address] [address] [address] Grace Blue Enterocolitica Not detected Normal NOT DETECTED [facility] Comment on above: Performed By: #### C BC #### [facility] [address] [address] [address] Grace Abdul UA RANDOM W/MICROSCOPICon BACTERIA NONE SEEN Normal NONE SEEN [facility] Comment on above: Performed By: #### U AMIC ####[facility] [address] [place] [address]Dr. Grace Abdul Bilirubin Ql (U) Negative Normal NEGATIVE [facility] Comment on above: Performed By: #### U AMIC ####[facility] [address] [place] [address]DrLisette Abdul CAST NONE SEEN Normal NONE SEEN [facility] Comment on above: Performed By: #### U AMIC ####[facility] [address] [place] [address]Dr. Grace Abdul Clarity (U) CLEAR Normal CLEAR [facility] Comment on above: Performed By: #### U AMIC ####[facility] [address] [place] [address]Dr. Grace Abdul Color (U) LT. YELLOW Normal YELLOW [facility] Comment on above: Performed By: #### U AMIC ####[facility] [address] [place] [address]Dr. Grace Abdul Crystals LM Nom (Urine sed) NONE SEEN Normal NONE SEEN [facility] Comment on above: Performed By: #### U AMIC ####[facility] [address] [place] [address]Dr. Grace Abdul Epithelial cells LM Ql (Urine sed) FEW Abnormal NONE SEEN /RARE [facility] Comment on above: Performed By: #### U AMIC ####[facility] [address] [place] [address]Dr. Grace Abdul Glucose Ql (U) Negative Normal NEGATIVE [facility] Comment on above: Performed By: #### U AMIC ####[facility] [address] [place] [address]Dr. Grace Abdul Hemoglobin Ql (U) TRACE-INTACT Abnormal NEGATIVE [facility] Comment on above: Performed By: #### U AMIC ####[facility] [address] [place] [address]Dr. Grace Abdul Ketones Ql (U) Negative Normal NEGATIVE [facility] Comment on above: Performed By: #### U AMIC ####[facility] [address] [place], [place] [address]Dr. Grace Abdul LEUKOCYTES Negative Normal NEGATIVE [facility] Comment on above: Performed By: #### U AMIC ####[facility] [address] [place], [place] [address]Dr. Grace Abdul MUCOUS NONE SEEN Normal NONE SEEN [facility] Comment on above: Performed By: #### U AMIC ####[facility] [address] [place], [place] [address]Dr. Grace Abdul Nitrite Ql (U) Negative Normal NEGATIVE [facility] Comment on above: Performed By: #### U AMIC ####[facility] [address] [place], [place] [address]Dr. Grace Abdul pH (U) 7.5 [pH] Normal 5-9 [facility] Comment on above: Performed By: #### U AMIC ####[facility] [address] [place], [place] [address]Dr. Grace Abdul RBC 0-2 Normal 0-2 [facility] Comment on above: Performed By: #### U AMIC ####[facility] [address] [place], [place] [address]Dr. Grace Abdul SPEC GRAVITY 1.010 Normal 1.005-<=1.025 [facility] Comment on above: Performed By: #### U AMIC ####[facility] [address] [place], [place] [address]Dr. Grace Abdul UA PROTEIN Negative Normal NEGATIVE/ TRACE [facility] Comment on above: Performed By: #### U AMIC ####[facility] [address] [place], [place] [address]IyLisette Abdul Urobilinogen Qn (U) 0.2 {Ashley'U}/dL Normal 0.2 - 1. 0 [facility] Comment on above: Performed By: #### U AMIC ####[facility] [address] [place] [id number] Abdul WBC NONE SEEN Normal NONE SEEN [facility] Comment on above: Performed By: #### U AMIC ####[facility] [address] [place], [place] [address]AxLisette Abdul CBC AUTO DIFFon 11-23-2021 BASO # 0.0 103/ul Normal 0.0-0.1 [facility] Comment on above: Performed By: #### C BC #### [facility] [address] [address] [address] Grace Abdul Basophils/100 WBC (Bld) 0.4 % Normal 0.2-2.0 [facility] Comment on above: Performed By: #### C BC #### [facility] [address] [address] [address] Grace Abdul EO # 0.1 103/ul Normal 0.0-0.7 [facility] Comment on above: Performed By: #### C BC #### [facility] [address] [address] [address] Grace Abdul Eosinophils/100 WBC (Bld) 1.5 % Normal 0.9-7.0 [facility] Comment on above: Performed By: #### C BC #### [facility] [address] [address] [address] Grace Abdul Erythrocyte distribution width (RBC) [Ratio] 13.2 % Normal 11.0-15.0 [facility] Comment on above: Performed By: #### C BC #### [facility] [facility] [address] [address] [address] Grace Abdul Hematocrit (Bld) [Volume fraction] 31.9 % Critically low 36.0-48.0 [facility] Comment on above: Performed By: #### C BC #### [facility] [address] [address] [address] Grace Abdul Hemoglobin (Bld) [Mass/Vol] 10.5 g/dL Critically low 12.0-16.0 [facility] Comment on above: Performed By: #### C BC #### [facility] [address] [address] [address] Grace Abdul IG # 0.01 10e3/ul Normal 0.00-0.03 [facility] Comment on above: Performed By: #### C BC #### [facility] [address] [place] [address] Dr. Grace Abdul IG % 0.2 % Normal 0.0-0.5 [facility] Comment on above: Performed By: #### C BC #### [facility] [address] [place] [address] Dr. Grace Abdul LYMPH # 0.7 103/ul Critically low 1.2-3.8 [facility] Comment on above: Performed By: #### C BC #### [facility] [address] [place] [address] Dr. Grace Abdul Lymphocytes/100 WBC (Bld) 14.8 % Critically low 20.5-60.0 [facility] Comment on above: Performed By: #### C BC #### [facility] [address] [place] [address] Dr. Grace Abdul MANUAL DIFF REQ NO Normal [facility] Comment on above: Performed By: #### C BC #### [facility] [address] [place] [address] Dr. Grace Abdul MCH (RBC) [Entitic mass] 31.4 pg Normal 26.7-34.0 [facility] Comment on above: Performed By: #### C BC #### [facility] [address] [place] [address] Dr. Grace Abdul MCHC (RBC) [Mass/Vol] 32.9 g/dL Normal 29.9-35.2 [facility] Comment on above: Performed By: #### C BC #### [facility] [address] [address] [address] Grace Abdul MCV (RBC) [Entitic vol] 95.5 fL Normal 81.0-99.0 [facility] Comment on above: Performed By: #### C BC #### [facility] [address] [address] [address] Grace Abdul MONO # 0.6 103/ul Normal 0.3-0.8 [facility] Comment on above: Performed By: #### C BC #### [facility] [address] [address] [address] Grace Abdul Monocytes/100 WBC (Bld) 13.4 % Critically high 1.7-12.0 [facility] Comment on above: Performed By: #### C BC #### [facility] [address] [address] [address] Grace Abdul NEUT # 3.3 103/ul Normal 1.4-6.5 [facility] Comment on above: Performed By: #### C BC #### [facility] [address] [address] [address] Grace Abdul Neutrophils/100 WBC (Bld) 69.7 % Normal 43.0-75.0 [facility] Comment on above: Performed By: #### C BC #### [facility] [address] [address] [address] Grace Abdul Platelet mean volume (Bld) [Entitic vol] 9.1 fL Critically low 9.5-13.5 [facility] Comment on above: Performed By: #### C BC #### [facility] [address] [address] [address] Grace Abdul PLT 335 103/ul Normal 150-450 [facility] Comment on above: Performed By: #### C BC #### [facility] [address] [address] [address] Grace Abdul RBC 3.34 106/ul Critically low 4.20-5.40 [facility] Comment on above: Performed By: #### C BC #### [facility] [address] [address] [address] Grace Abdul WBC 4.8 103/ul Normal 4.0-11.0 [facility] Comment on above: Performed By: #### C BC #### [facility] [id number] Grace Abdul FREE THYROXINE INDEX T7on FTI 1.15 Critically low 1.30-4.50 [facility] Comment on above: Performed By: #### T 7, CMP, TSH ####[facility] [address] [id number] Abdul T3U 31.0 % Normal 30.0-39.0 [facility] Comment on above: Performed By: #### T 7, CMP, TSH ####[facility] [address] [id number]. Grace Abdul T4 [Mass/Vol] 3.70 ug/dL Critically low 4.80-13.90 [facility] Comment on above: Performed By: #### T 7, CMP, TSH ####[facility] [address] [id number]. Grace Abdul IRONon 11-23-2021 Iron [Mass/Vol] 52.0 ug/dL Normal 50.0-170.0 [facility] Comment on above: Performed By: #### C VDTB #### [facility] [address] [address] [address] Grace Abdul PROF 14(COMP METB)on 022 Albumin [Mass/Vol] 3.5 g/dL Normal 3.4-5.0 [facility] Comment on above: Performed By: #### T 7, CMP, TSH ####[facility] [address] [id number] Abdul Albumin/Globulin [Mass ratio] 1.1 {ratio} Normal [facility] Comment on above: Performed By: #### T 7, CMP, TSH ####[facility] [address] [id number] Abdul ALP [Catalytic activity/Vol] 69 U/L Normal 46-116 [facility] Comment on above: Performed By: #### T 7, CMP, TSH ####[facility] [address] [address]Dr. Grace Abdul ALT [Catalytic activity/Vol] 51 U/L Normal 14-59 [facility] Comment on above: Performed By: #### T 7, CMP, TSH ####[facility] [address] [place], [place] [address]Dr. Grace Abdul Anion gap [Moles/Vol] 11.5 mmol/L Normal [facility] Comment on above: Performed By: #### T 7, CMP, TSH ####[facility] [address] [place], [place] [address]Dr. Grace Abdul AST [Catalytic activity/Vol] 24 U/L Normal 15-37 [facility] Comment on above: Performed By: #### T 7, CMP, TSH ####[facility] [address] [place], [place] [address]Dr. Grace Abdul Bilirubin [Mass/Vol] 0.2 mg/dL Normal 0.2-1.0 [facility] Comment on above: Performed By: #### T 7, CMP, TSH ####[facility] [address] [place], [place] [address]Dr. Grace Abdul Calcium [Mass/Vol] 9.3 mg/dL Normal 8.5-10.1 [facility] Comment on above: Performed By: #### T 7, CMP, TSH ####[facility] [address] [address]Dr. Grace Abdul Chloride [Moles/Vol] 98 mmol/L Normal 98-107 [facility] Comment on above: Performed By: #### T 7, CMP, TSH ####[facility] [address] [place], [place] [address]Dr. Grace Abdul CO2 [Moles/Vol] 28.7 mmol/L Normal 21.0-32.0 [facility] Comment on above: Performed By: #### T 7, CMP, TSH ####[facility] [address] [id number]. Grace Abdul Creatinine [Mass/Vol] 1.11 mg/dL Critically high 0.55-1.02 [facility] Comment on above: Performed By: #### T 7, CMP, TSH ####[facility] [address] [id number]. Grace Abdul EGFR-AF UKRAINIAN 57 mL/min/1.73m2 Critically low >=60 [facility] Comment on above: Performed By: #### T 7, CMP, TSH ####[facility] [address] [address]Dr. Grace Badul EGFR-NON AF UKRAINIAN 47 mL/min/1.73m2 Critically low >=60 [facility] Comment on above: Performed By: #### T 7, CMP, TSH ####[facility] [address] [address]Dr. Benitalee ann Abdul Globulin (S) [Mass/Vol] 3.3 g/dL Normal [facility] Comment on above: Performed By: #### T 7, CMP, TSH ####[facility] [address] [address]Dr. Grace Abdul Glucose [Mass/Vol] 88 mg/dL Normal 74-106 [facility] Comment on above: Performed By: #### T 7, CMP, TSH ####[facility] [address] [id number]. Grace Abdul Potassium [Moles/Vol] 4.2 mmol/L Normal 3.5-5.1 [facility] Comment on above: Performed By: #### T 7, CMP, TSH ####[facility] [address] [id number]. Grace Abdul Protein [Mass/Vol] 6.8 g/dL Normal 6.4-8.2 [facility] Comment on above: Performed By: #### T 7, CMP, TSH ####[facility] [address] [address]Dr. Grace Abdul Sodium [Moles/Vol] 134 mmol/L Critically low 136-145 [facility] Comment on above: Performed By: #### T 7, CMP, TSH ####[facility] [address] [address]Dr. Grace Abdul Urea nitrogen [Mass/Vol] 33.0 mg/dL Critically high 7.0-18.0 [facility] Comment on above: Performed By: #### T 7, CMP, TSH ####[facility] [address] [address]Dr. Grace Abdul Urea nitrogen/Creatinine [Mass ratio] 29.7 mg/mg Normal [facility] Comment on above: Performed By: #### T 7, CMP, TSH ####[facility] [address] [address]DrLisette Abdul TSHon 11-23-2021 TSH 0.469 uIU/mL Normal 0.358-3.740 [facility] Comment on above: Performed By: #### T 7, CMP, TSH ####[facility] [address] [address]DrLisette Abdul CBC AUTO DIFFon 11-17-2021 BASO # 0.0 103/ul Normal 0.0-0.1 [facility] Comment on above: Performed By: #### C VDTBH #### [facility] [address] [place] [address] Dr. Grace Abdul Basophils/100 WBC (Bld) 0.2 % Normal 0.2-2.0 [facility] Comment on above: Performed By: #### C VDTBH #### [facility] [address] [place] [address] Dr. Grace Abdul EO # 0.1 103/ul Normal 0.0-0.7 [facility] Comment on above: Performed By: #### C VDTBH #### [facility] [address] [place] [address] Dr. Grace Abdul Eosinophils/100 WBC (Bld) 0.9 % Normal 0.9-7.0 [facility] Comment on above: Performed By: #### C VDTBH #### [facility] [address] [place] [address] Dr. Grace Abdul Erythrocyte distribution width (RBC) [Ratio] 12.8 % Normal 11.0-15.0 [facility] Comment on above: Performed By: #### C VDTBH #### [facility] [address] [place] [address] Dr. Grace Abdul Hematocrit (Bld) [Volume fraction] 35.2 % Critically low 36.0-48.0 [facility] Comment on above: Performed By: #### C VDTBH #### [facility] [address] [place] [address] Dr. Grace Abdul Hemoglobin (Bld) [Mass/Vol] 12.1 g/dL Normal 12.0-16.0 [facility] Comment on above: Performed By: #### C VDTBH #### [facility] [address] [place] [address] Dr. Grace Abdul IG # 0.05 10e3/ul Critically high 0.00-0.03 [facility] Comment on above: Performed By: #### C VDTBH #### [facility] [address] [place] [address] Dr. Grace Abdul IG % 0.6 % Critically high 0.0-0.5 [facility] Comment on above: Performed By: #### C VDTBH #### [facility] [address] [place] [address] Dr. Grace Abdul LYMPH # 0.6 103/ul Critically low 1.2-3.8 [facility] Comment on above: Performed By: #### C VDTBH #### [facility] [address] [place] [address] Dr. Grace Abdul Lymphocytes/100 WBC (Bld) 7.4 % Critically low 20.5-60.0 [facility] Comment on above: Performed By: #### C VDTBH #### [facility] [address] [place] [address] Dr. Grace Abdul MANUAL DIFF REQ NO Normal [facility] Comment on above: Performed By: #### C VDTBH #### [facility] [address] [address] [address] Grace Abdul MCH (RBC) [Entitic mass] 31.5 pg Normal 26.7-34.0 [facility] Comment on above: Performed By: #### C VDTBH #### [facility] [address] [place] [address] Dr. Grace Abdul MCHC (RBC) [Mass/Vol] 34.4 g/dL Normal 29.9-35.2 [facility] Comment on above: Performed By: #### C VDTBH #### [facility] [address] [place] [address] Dr. Grace Abdul MCV (RBC) [Entitic vol] 91.7 fL Normal 81.0-99.0 [facility] Comment on above: Performed By: #### C VDTBH #### [facility] [address] [place] [address] Dr. Grace Abdul MONO # 1.0 103/ul Critically high 0.3-0.8 [facility] Comment on above: Performed By: #### C VDTBH #### [facility] [address] [place] [address] Dr. Grace Abdul Monocytes/100 WBC (Bld) 12.1 % Critically high 1.7-12.0 [facility] Comment on above: Performed By: #### C VDTBH #### [facility] [address] [place] [address] Dr. Grace Abdul NEUT # 6.3 103/ul Normal 1.4-6.5 [facility] Comment on above: Performed By: #### C VDTBH #### [facility] [address] [place] [address] Dr. Grace Abdul Neutrophils/100 WBC (Bld) 78.8 % Critically high 43.0-75.0 [facility] Comment on above: Performed By: #### C VDTBH #### [facility] [address] [place] [address] Dr. Grace Abdul Platelet mean volume (Bld) [Entitic vol] 9.1 fL Critically low 9.5-13.5 [facility] Comment on above: Performed By: #### C VDTBH #### [facility] [address] [place] [address] Dr. Grace Abdul PLT 281 103/ul Normal 150-450 [facility] Comment on above: Performed By: #### C VDTBH #### [facility] [address] [place] [address] Dr. Grace Abdul RBC 3.84 106/ul Critically low 4.20-5.40 [facility] Comment on above: Performed By: #### C VDTBH #### [facility] [address] [place] [address] Dr. Grace Abdul WBC 8.0 103/ul Normal 4.0-11.0 [facility] Comment on above: Performed By: #### C VDTBH #### [facility] [address] [place] [address] Dr. Grace Abdul MAGNESIUMon 11-17-2021 Magnesium [Mass/Vol] 1.9 mg/dL Normal 1.8-2.4 [facility] Comment on above: Performed By: #### C VDTBH #### [facility] [address] [place] [address] Dr. Grace Abdul PROF CHEM 8 (BAS METB)on Anion gap [Moles/Vol] 13.9 mmol/L Normal [facility] Comment on above: Performed By: #### C VDTBH #### [facility] [address] [place] [address] Dr. Grace Abdul Calcium [Mass/Vol] 8.7 mg/dL Normal 8.5-10.1 [facility] Comment on above: Performed By: #### C VDTBH #### [facility] [address] [place] [address] Dr. Grace Abdul Chloride [Moles/Vol] 101 mmol/L Normal 98-107 [facility] Comment on above: Performed By: #### C VDTBH #### [facility] [address] [place] [address] Dr. Grace Abdul CO2 [Moles/Vol] 24.3 mmol/L Normal 21.0-32.0 [facility] Comment on above: Performed By: #### C VDTBH #### [facility] [address] [place] [address] Dr. Grace Abdul Creatinine [Mass/Vol] 0.89 mg/dL Normal 0.55-1.02 [facility] Comment on above: Performed By: #### C VDTBH #### [facility] [address] [place] [address] Dr. Grace Abdul EGFR-AF UKRAINIAN >60 Normal >=60 [facility] Comment on above: Performed By: #### C VDTBH #### [facility] [address] [place] [address] Dr. Grace Abdul EGFR-NON AF UKRAINIAN >60 Normal >=60 [facility] Comment on above: Performed By: #### C VDTBH #### [facility] [address] [place] [address] Dr. Grace Abdul Glucose [Mass/Vol] 97 mg/dL Normal 74-106 [facility] Comment on above: Performed By: #### C VDTBH #### [facility] [address] [place] [address] Dr. Grace Abdul Potassium [Moles/Vol] 3.2 mmol/L Critically low 3.5-5.1 [facility] Comment on above: Performed By: #### C VDTBH #### [facility] [address] [address] [address] Grace Abdul Sodium [Moles/Vol] 136 mmol/L Normal 136-145 [facility] Comment on above: Performed By: #### C VDTBH #### [facility] [address] [place] [address] Dr. Grace Abdul Urea nitrogen [Mass/Vol] 14.0 mg/dL Normal 7.0-18.0 [facility] Comment on above: Performed By: #### C VDTBH #### [facility] [address] [place] [address] Dr. Grace Abdul Urea nitrogen/Creatinine [Mass ratio] 15.7 mg/mg Normal [facility] Comment on above: Performed By: #### C VDTB #### [facility] [address] [place] [address] Dr. Grace Abdul CBC AUTO DIFFon 11-16-2021 BASO # 0.0 103/ul Normal 0.0-0.1 [facility] Comment on above: Performed By: #### B MP #### [facility] [address] [place] [address] Dr. Grace Abdul Basophils/100 WBC (Bld) 0.2 % Normal 0.2-2.0 [facility] Comment on above: Performed By: #### B MP #### [facility] [address] [place] [address] Dr. Grace Abdul EO # 0.0 103/ul Normal 0.0-0.7 [facility] Comment on above: Performed By: #### B MP #### [facility] [address] [place] [address] Dr. Grace Abdul Eosinophils/100 WBC (Bld) 0.5 % Critically low 0.9-7.0 [facility] Comment on above: Performed By: #### B MP #### [facility] [address] [place] [address] Dr. Grace Abdul Erythrocyte distribution width (RBC) [Ratio] 12.4 % Normal 11.0-15.0 [facility] Comment on above: Performed By: #### B MP #### [facility] [address] [place] [address] Dr. Grace Abdul Hematocrit (Bld) [Volume fraction] 33.6 % Critically low 36.0-48.0 [facility] Comment on above: Performed By: #### B MP #### [facility] [address] [place] [address] Dr. Grace Abdul Hemoglobin (Bld) [Mass/Vol] 11.8 g/dL Critically low 12.0-16.0 [facility] Comment on above: Performed By: #### B MP #### [facility] [address] [place] [address] Dr. Grace Abdul IG # 0.04 10e3/ul Critically high 0.00-0.03 [facility] Comment on above: Performed By: #### B MP #### [facility] [address] [place] [address] Dr. Grace Abdul IG % 0.7 % Critically high 0.0-0.5 [facility] Comment on above: Performed By: #### B MP #### [facility] [address] [place] [address] Dr. Grace Abdul LYMPH # 0.7 103/ul Critically low 1.2-3.8 [facility] Comment on above: Performed By: #### B MP #### [facility] [address] [place] [address] Dr. Grace Abdul Lymphocytes/100 WBC (Bld) 11.1 % Critically low 20.5-60.0 [facility] Comment on above: Performed By: #### B MP #### [facility] [address] [place] [address] Dr. Grace Abdul MANUAL DIFF REQ NO Normal [facility] Comment on above: Performed By: #### B MP #### [facility] [address] [place] [address] Dr. Grace Abdul MCH (RBC) [Entitic mass] 31.5 pg Normal 26.7-34.0 [facility] Comment on above: Performed By: #### B MP #### [facility] [address] [place] [address] Dr. Grace Abdul MCHC (RBC) [Mass/Vol] 35.1 g/dL Normal 29.9-35.2 [facility] Comment on above: Performed By: #### B MP #### [facility] [address] [place] [address] Dr. Grace Abdul MCV (RBC) [Entitic vol] 89.6 fL Normal 81.0-99.0 [facility] Comment on above: Performed By: #### B MP #### [facility] [address] [place] [address] Dr. Grace Abdul MONO # 0.9 103/ul Critically high 0.3-0.8 [facility] Comment on above: Performed By: #### B MP #### [facility] [address] [place] [address] Dr. Grace Abdul Monocytes/100 WBC (Bld) 14.0 % Critically high 1.7-12.0 [facility] Comment on above: Performed By: #### B MP #### [facility] [address] [place] [address] Dr. Grace Abdul NEUT # 4.5 103/ul Normal 1.4-6.5 [facility] Comment on above: Performed By: #### B MP #### [facility] [address] [place] [address] Dr. Grace Abdul Neutrophils/100 WBC (Bld) 73.5 % Normal 43.0-75.0 [facility] Comment on above: Performed By: #### B MP #### [facility] [address] [place] [address] Dr. Grace Abdul Platelet mean volume (Bld) [Entitic vol] 9.3 fL Critically low 9.5-13.5 [facility] Comment on above: Performed By: #### B MP #### [facility] [address] [place] [address] Dr. Grace Abdul PLT 292 103/ul Normal 150-450 [facility] Comment on above: Performed By: #### B MP #### [facility] [address] [place] [address] Dr. Grace Abdul RBC 3.75 106/ul Critically low 4.20-5.40 [facility] Comment on above: Performed By: #### B MP #### [facility] [address] [place] [address] Dr. Grace Abdul WBC 6.1 103/ul Normal 4.0-11.0 [facility] Comment on above: Performed By: #### B MP #### [facility] [address] [place] [address] Dr. Grace Abdul CULTURE URINEon 11-16-2021 CULTURE URINE Culture Observations : LIGHT GROWTH OF MIXED GENITAL ALANIS. NO POTENTIAL PATHOGENS SEEN. Normal [facility] Comment on above: Performed By: #### U RCX ####[facility] [address] [address]Dr[address] Grace Abdul ER URINE PROFILEon 2 Bilirubin Ql (U) Negative Normal NEGATIVE [facility] Comment on above: Performed By: #### C VDTBH #### [facility] [address] [place] [address] Dr. Grace Abdul Clarity (U) CLEAR Normal CLEAR [facility] Comment on above: Performed By: #### C VDTBH #### [facility] [address] [place] [address] Dr. Grace Abdul Color (U) LT. YELLOW Normal YELLOW [facility] Comment on above: Performed By: #### C VDTBH #### [facility] [address] [place] [address] Dr. Grace HIGGINS A micrscopic examination will be performed if indicated. Normal [facility] Comment on above: Performed By: #### C VDTBH #### [facility] [address] [place] [address] Dr. Grace Abdul Glucose Ql (U) Negative Normal NEGATIVE [facility] Comment on above: Performed By: #### C VDTBH #### [facility] [address] [place] [address] Dr. Grace Abdul Hemoglobin Ql (U) SMALL Abnormal NEGATIVE [facility] Comment on above: Performed By: #### C VDTBH #### [facility] [address] [place] [address] Dr. Grace Abdul Ketones Ql (U) 40 mg/dl Abnormal NEGATIVE [facility] Comment on above: Performed By: #### C VDTBH #### [facility] [address] [place] [address] Dr. Grace Abdul LEUKOCYTES SMALL Abnormal NEGATIVE [facility] Comment on above: Performed By: #### C VDTBH #### [facility] [address] [place] [address] Dr. Grace Abdul Nitrite Ql (U) Negative Normal NEGAT[facility] Comment on above: Performed By: #### C VDTBH #### [facility] [address] [place] [address] Dr. Grace Abdul pH (U) 7.0 [pH] Normal 5-9 [facility] Comment on above: Performed By: #### C VDTBH #### [facility] [address] [place] [address] Dr. Grace Abdul SPEC GRAVITY 1.010 Normal 1.005-<=1.025 [facility] Comment on above: Performed By: #### C VDTBH #### [facility] [address] [place] [address] Dr. Grace Abdul UA PROTEIN Negative Normal NEGATIVE/ TRACE [facility] Comment on above: Performed By: #### C VDTBH #### [facility] [address] [place] [address] Dr. Grace Abdul UR MICRO IND INDICATED Normal [facility] Comment on above: Performed By: #### C VDTBH #### [facility] [address] [place] [address] Dr. Grace Abdul Urobilinogen Qn (U) 0.2 {Ashley'U}/dL Normal 0.2 - 1. 0 [facility] Comment on above: Performed By: #### C VDTBH #### [facility] [address] [place] [address] Dr. Grace Abdul MAGNESIUMon 11-16-2021 Magnesium [Mass/Vol] 1.8 mg/dL Normal 1.8-2.4 [facility] Comment on above: Performed By: #### C VDTBH #### [facility] [address] [place] [address] Dr. Grace Abdul PROF CHEM 8 (BAS METB)on Anion gap [Moles/Vol] 12.7 mmol/L Normal [facility] Comment on above: Performed By: #### B MP #### [facility] [address] [place] [address] Dr. Grace Abdul Calcium [Mass/Vol] 8.3 mg/dL Critically low 8.5-10.1 [facility] Comment on above: Performed By: #### B MP #### [facility] [address] [address] [address] Grace Abdul CO2 [Moles/Vol] 24.4 mmol/L Normal 21.0-32.0 [facility] Comment on above: Performed By: #### B MP #### [facility] [address] [address] [address] Grace Abdul Creatinine [Mass/Vol] 1.16 mg/dL Critically high 0.55-1.02 [facility] Comment on above: Performed By: #### B MP #### [facility] [address] [place] [address] Dr. Grace Abdul EGFR-AF UKRAINIAN 54 mL/min/1.73m2 Critically low >=60 [facility] Comment on above: Performed By: #### B MP #### [facility] [address] [place] [address] Dr. Grace Abdul EGFR-NON AF UKRAINIAN 45 mL/min/1.73m2 Critically low >=60 [facility] Comment on above: Performed By: #### B MP #### [facility] [address] [place] [address] Dr. Grace Abdul Glucose [Mass/Vol] 116 mg/dL Critically high 74-106 [facility] Comment on above: Performed By: #### B MP #### [facility] [address] [address] [address] Grace Abdul Urea nitrogen [Mass/Vol] 20.0 mg/dL Critically high 7.0-18.0 [facility] Comment on above: Performed By: #### B MP #### [facility] [address] [place] [address] Dr. Grace Abdul Urea nitrogen/Creatinine [Mass ratio] 17.2 mg/mg Normal [facility] Comment on above: Performed By: #### B MP #### [facility] [address] [place] [address] Dr. Grace Abdul Anion gap [Moles/Vol] 10.0 mmol/L Normal [facility] Comment on above: Performed By: #### B MP #### [facility] [address] [address] [address] Grace Abdul Calcium [Mass/Vol] 8.8 mg/dL Normal 8.5-10.1 [facility] Comment on above: Performed By: #### B MP #### [facility] [address] [address] [address] Grace Abdul Chloride [Moles/Vol] 96 mmol/L Critically low 98-107 [facility] Comment on above: Performed By: #### B MP #### [facility] [address] [place] [address] Dr. Grace Abdul CO2 [Moles/Vol] 26.1 mmol/L Normal 21.0-32.0 [facility] Comment on above: Performed By: #### B MP #### [facility] [address] [address] [address] Grace Abdul Creatinine [Mass/Vol] 1.11 mg/dL Critically high 0.55-1.02 [facility] Comment on above: Performed By: #### B MP #### [facility] [address] [address] [address] Grace Abdul EGFR-AF UKRAINIAN 57 mL/min/1.73m2 Critically low >=60 [facility] Comment on above: Performed By: #### B MP #### [facility] [address] [address] [address] Grace Abdul EGFR-NON AF UKRAINIAN 47 mL/min/1.73m2 Critically low >=60 [facility] Comment on above: Performed By: #### B MP #### [facility] [address] [address] [address] Grace Abdul Glucose [Mass/Vol] 94 mg/dL Normal 74-106 [facility] Comment on above: Performed By: #### B MP #### [facility] [address] [address] [address] rGace Abdul Potassium [Moles/Vol] 3.1 mmol/L Critically low 3.5-5.1 [facility] Comment on above: Performed By: #### B MP #### [facility] [address] [place] [address] Dr. Grace Abdul Performed By: #### C VDTBH #### [facility] [address] [place] [address] Dr. Grace Abdul Sodium [Moles/Vol] 129 mmol/L Critically low 136-145 [facility] Comment on above: Performed By: #### B MP #### [facility] [address] [place] [address] Dr. Grace Abdul Urea nitrogen [Mass/Vol] 16.0 mg/dL Normal 7.0-18.0 [facility] Comment on above: Performed By: #### B MP #### [facility] [address] [place] [address] Dr. Grace Abdul Urea nitrogen/Creatinine [Mass ratio] 14.4 mg/mg Normal [facility] Comment on above: Performed By: #### B MP #### [facility] [address] [place] [address] Dr. Grace Abdul Anion gap [Moles/Vol] 12.6 mmol/L [facility] Comment on above: Performed By: #### C VDTBH #### [facility] [address] [place] [address] Dr. Grace Abdul Calcium [Mass/Vol] 8.6 mg/dL Normal 8.5-10.1 [facility] Comment on above: Performed By: #### C VDTBH #### [facility] [address] [place] [address] Dr. Grace Abdul Chloride [Moles/Vol] 95 mmol/L Critically low 98-107 [facility] Comment on above: Performed By: #### B MP #### [facility] [address] [place] [address] Dr. Grace Abdul Performed By: #### C VDTBH #### [facility] [address] [place] [address] Dr. Grace Abdul CO2 [Moles/Vol] 22.5 mmol/L Normal 21.0-32.0 [facility] Comment on above: Performed By: #### C VDTBH #### [facility] [address] [place] [address] Dr. Grace Abdul Creatinine [Mass/Vol] 0.95 mg/dL Normal 0.55-1.02 [facility] Comment on above: Performed By: #### C VDTBH #### [facility] [address] [place] [address] Dr. Grace Abdul EGFR-AF UKRAINIAN >60 Normal >=60 [facility] Comment on above: Performed By: #### C VDTBH #### [facility] [address] [place] [address] Dr. Grace Abdul EGFR-NON AF UKRAINIAN 56 mL/min/1.73m2 Critically low >=60 [facility] Comment on above: Performed By: #### C VDTBH #### [facility] [address] [place] [address] Dr. Grace Abdul Glucose [Mass/Vol] 92 mg/dL Normal 74-106 [facility] Comment on above: Performed By: #### C VDTBH #### [facility] [address] [place] [address] Dr. Grace Abdul Sodium [Moles/Vol] 127 mmol/L Critically low 136-145 [facility] Comment on above: Performed By: #### C VDTBH #### [facility] [address] [place] [address] Dr. Grace Abdul Urea nitrogen [Mass/Vol] 18.0 mg/dL Normal 7.0-18.0 [facility] Comment on above: Performed By: #### C VDTBH #### [facility] [address] [place] [address] Dr. Grace Abdul Urea nitrogen/Creatinine [Mass ratio] 18.9 mg/mg Normal [facility] Comment on above: Performed By: #### C VDTBH #### [facility] [address] [place] [address] Dr. Grace Abdul URINE MICROSCOPIC ONLYon BACTERIA TRACE Abnormal NONE SEEN [facility] Comment on above: Performed By: #### C VDTBH #### [facility] [address] [place] [address] Dr. Grace Abdul Bacteria identified Cx Nom (U) INDICATED Normal [facility] Comment on above: Performed By: #### C VDTBH #### [facility] [address] [place] [address] Dr. Grace Abdul CAST NONE SEEN Normal NONE SEEN [facility] Comment on above: Performed By: #### C VDTBH #### [facility] [address] [place] [address] Dr. Grace Abdul Crystals LM Nom (Urine sed) NONE SEEN Normal NONE SEEN [facility] Comment on above: Performed By: #### C VDTBH #### [facility] [address] [place] [address] Dr. Grace Abdul Epithelial cells LM Ql (Urine sed) FEW Abnormal NONE SEEN /RARE [facility] Comment on above: Performed By: #### C VDTBH #### [facility] [address] [place] [address] Dr. Grace Abdul MUCOUS NONE SEEN Normal NONE SEEN [facility] Comment on above: Performed By: #### C VDTBH #### [facility] [address] [place] [address] Dr. Grace Abdul RBC 2-5 Abnormal 0-2 [facility] Comment on above: Performed By: #### C VDTBH #### [facility] [address] [place] [address] Dr. Grace Abdul WBC 5-10 Abnormal NONE SEEN [facility] Comment on above: Performed By: #### C VDTBH #### [facility] [address] [place] [address] Dr. Grace Abdul AMYLASEon 11-15-2021 Amylase [Catalytic activity/Vol] 94 U/L Normal 25-115 [facility] Comment on above: Performed By: #### C VDTBH #### [facility] [address] [place] [address] Dr. Grace Abdul BNPon 11-15-2021 Natriuretic peptide B (Bld) [Mass/Vol] 357.0 pg/mL Normal <=1,800.0 [facility] Comment on above: Performed By: #### C VDTBH #### [facility] [address] [place] [address] Dr. Grace Abdul CARDIAC JOVITA ADMITon 022 CK [Catalytic activity/Vol] 66 U/L Normal 26-192 [facility] Comment on above: Performed By: #### C VDTBH #### [facility] [address] [place] [address] Dr. Grace Abdul CK.MB [Mass/Vol] 2.19 ng/mL Normal <=3.60 [facility] Comment on above: Performed By: #### C VDTBH #### [facility] [address] [place] [address] Dr. Grace Abdul HSTROP 9.5 pg/mL Normal 4.0-51.3 [facility] Comment on above: Result Comment: CUT- OFF POINTS HAVE BEEN ESTABLISHED BASED ON THE FOURTH UNIVERSAL DEFINITIONS OF MYOCARDIAL INFARCTION. THE UPPER REFERENCE LIMIT (URL) OF TROPONIN, DEFINED THE 99TH PERCENTILE OF cTnI DISTRIBUTION IN A REFERENCE POPULATION, HAS BEEN CONFIRMED THE DECISION THRESHOLD FOR OH DIAGNOSIS. Performed By: #### C VDTBH #### [facility] [address] [place] [address] Dr. Grace Abdul JOHNNA 73 ng/mL Normal 9-82 [facility] Comment on above: Performed By: #### C VDTBH #### [facility] [address] [place] [address] Dr. Grace Abdul CBC AUTO DIFFon 11-15-2021 BASO # 0.0 103/ul Normal 0.0-0.1 [facility] Comment on above: Performed By: #### B MP #### [facility] [address] [place] [address] Dr. Grace Abdul Basophils/100 WBC (Bld) 0.1 % Critically low 0.2-2.0 [facility] Comment on above: Performed By: #### B MP #### [facility] [address] [address] [address] Grace Abdul EO # 0.0 103/ul Normal 0.0-0.7 [facility] Comment on above: Performed By: #### B MP #### [facility] [address] [address] [address] Grace Abdul Eosinophils/100 WBC (Bld) 0.1 % Critically low 0.9-7.0 [facility] Comment on above: Performed By: #### B MP #### [facility] [address] [place] [address] Dr. Grace Abdul Erythrocyte distribution width (RBC) [Ratio] 11.9 % Normal 11.0-15.0 [facility] Comment on above: Performed By: #### B MP #### [facility] [address] [place] [address] Dr. Grace Abdul Hematocrit (Bld) [Volume fraction] 36.6 % Normal 36.0-48.0 [facility] Comment on above: Performed By: #### B MP #### [facility] [address] [place] [address] Dr. rGace Abdul Hemoglobin (Bld) [Mass/Vol] 13.2 g/dL Normal 12.0-16.0 [facility] Comment on above: Performed By: #### B MP #### [facility] [address] [place] [address] Dr. Grace Abdul IG # 0.05 10e3/ul Critically high 0.00-0.03 [facility] Comment on above: Performed By: #### B MP #### [facility] [address] [place] [address] Dr. Grace Abdul IG % 0.7 % Critically high 0.0-0.5 [facility] Comment on above: Performed By: #### B MP #### [facility] [address] [place] [address] Dr. Grace Abdul LYMPH # 0.7 103/ul Critically low 1.2-3.8 [facility] Comment on above: Performed By: #### B MP #### [facility] [address] [place] [address] Dr. Grace Abdul Lymphocytes/100 WBC (Bld) 9.8 % Critically low 20.5-60.0 [facility] Comment on above: Performed By: #### B MP #### [facility] [address] [place] [address] Dr. Grace Abdul MANUAL DIFF REQ NO Normal [facility] Comment on above: Performed By: #### B MP #### [facility] [address] [place] [address] Dr. Grace Abdul MCH (RBC) [Entitic mass] 31.5 pg Normal 26.7-34.0 [facility] Comment on above: Performed By: #### B MP #### [facility] [address] [place] [address] Dr. Grace Abdul MCHC (RBC) [Mass/Vol] 36.1 g/dL Critically high 29.9-35.2 [facility] Comment on above: Performed By: #### B MP #### [facility] [address] [place] [address] Dr. Grace Abdul MCV (RBC) [Entitic vol] 87.4 fL Normal 81.0-99.0 [facility] Comment on above: Performed By: #### B MP #### [facility] [address] [place] [address] Dr. Graec Abdul MONO # 0.9 103/ul Critically high 0.3-0.8 [facility] Comment on above: Performed By: #### B MP #### [facility] [address] [place] [address] Dr. Grace Abdul Monocytes/100 WBC (Bld) 12.4 % Critically high 1.7-12.0 [facility] Comment on above: Performed By: #### B MP #### [facility] [address] [place] [address] Dr. Grace Abdul NEUT # 5.8 103/ul Normal 1.4-6.5 [facility] Comment on above: Performed By: #### B MP #### [facility] [address] [place] [address] Dr. Grace Abdul Neutrophils/100 WBC (Bld) 76.9 % Critically high 43.0-75.0 [facility] Comment on above: Performed By: #### B MP #### [facility] [address] [address] [address] Grace Abdul Platelet mean volume (Bld) [Entitic vol] 9.0 fL Critically low 9.5-13.5 [facility] Comment on above: Performed By: #### B MP #### [facility] [address] [place] [address] Dr. Grace Abdul PLT 361 103/ul Normal 150-450 [facility] Comment on above: Performed By: #### B MP #### [facility] [address] [address] [address] Grace Abdul RBC 4.19 106/ul Critically low 4.20-5.40 [facility] Comment on above: Performed By: #### B MP #### [facility] [address] [address] [address] Grace Abdul WBC 7.6 103/ul Normal 4.0-11.0 [facility] Comment on above: Performed By: #### B MP #### [facility] [address] [place] [address] Dr. Grace Abdul Covid-19 PCR ([facility]on 10-23 SARS-CoV-2 (COVID-19) RNA LUISITO+probe Ql (Unsp spec) Not detected Normal NOT DETECTED [facility] Comment on above: Result Comment: When diagnostic [...] for this test is supported by the [place] of Health and Human Service's declaration that [...] used). Performed By: #### C VDTBH #### [facility] [address] [place] [address] Dr. Grace Abdul LIPASEon 11-15-2021 Lipase [Catalytic activity/Vol] 178.0 U/L Normal 73.0-393.0 [facility] Comment on above: Performed By: #### C VDTBH #### [facility] [address] [place] [address] Dr. Grace Abdul PROF 14(COMP METB)on 022 Albumin [Mass/Vol] 4.1 g/dL Normal 3.4-5.0 [facility] Comment on above: Performed By: #### C VDTBH #### [facility] [address] [place] [address] Dr. Grace Abdul Albumin/Globulin [Mass ratio] 1.2 {ratio} Normal [facility] Comment on above: Performed By: #### C VDTBH #### [facility] [address] [place] [address] Dr. Grace Abdul ALP [Catalytic activity/Vol] 63 U/L Normal 46-116 [facility] Comment on above: Performed By: #### C VDTBH #### [facility] [address] [place] [address] Dr. Grace Abdul ALT [Catalytic activity/Vol] 29 U/L Normal 14-59 [facility] Comment on above: Performed By: #### C VDTBH #### [facility] [address] [place] [address] Dr. Grace Abdul Anion gap [Moles/Vol] 14.8 mmol/L Normal [facility] Comment on above: Performed By: #### C VDTBH #### [facility] [address] [place] [address] Dr. Grace Abdul AST [Catalytic activity/Vol] 25 U/L Normal 15-37 [facility] Comment on above: Performed By: #### C VDTBH #### [facility] [address] [place] [address] Dr. Grace Abdul Bilirubin [Mass/Vol] 0.6 mg/dL Normal 0.2-1.0 [facility] Comment on above: Performed By: #### C VDTBH #### [facility] [address] [place] [address] Dr. Grace Abdul Calcium [Mass/Vol] 9.4 mg/dL Normal 8.5-10.1 [facility] Comment on above: Performed By: #### C VDTBH #### [facility] [address] [place] [address] Dr. Grace Abdul Chloride [Moles/Vol] 83 mmol/L Critically low 98-107 [facility] Comment on above: Performed By: #### C VDTBH #### [facility] [address] [place] [address] Dr. Grace Abdul CO2 [Moles/Vol] 24.4 mmol/L Normal 21.0-32.0 [facility] Comment on above: Performed By: #### C VDTBH #### [facility] [address] [place] [address] Dr. Grace Abdul Creatinine [Mass/Vol] 1.15 mg/dL Critically high 0.55-1.02 [facility] Comment on above: Performed By: #### C VDTBH #### [facility] [address] [place] [address] Dr. Grace Abdul EGFR-AF UKRAINIAN 55 mL/min/1.73m2 Critically low >=60 [facility] Comment on above: Performed By: #### C VDTBH #### [facility] [address] [place] [address] Dr. Grace Abdul EGFR-NON AF UKRAINIAN 45 mL/min/1.73m2 Critically low >=60 [facility] Comment on above: Performed By: #### C VDTBH #### [facility] [address] [place] [address] Dr. Grace Abdul Globulin (S) [Mass/Vol] 3.4 g/dL Normal [facility] Comment on above: Performed By: #### C VDTBH #### [facility] [address] [place] [address] Dr. Grace Abdul Glucose [Mass/Vol] 147 mg/dL Critically high 74-106 [facility] Comment on above: Performed By: #### C VDTBH #### [facility] [address] [place] [address] Dr. Grace Abdul Potassium [Moles/Vol] 3.2 mmol/L Critically low 3.5-5.1 [facility] Comment on above: Performed By: #### C VDTBH #### [facility] [address] [place] [address] Dr. Grace Abdul Protein [Mass/Vol] 7.5 g/dL Normal 6.4-8.2 [facility] Comment on above: Performed By: #### C VDTBH #### [facility] [address] [place] [address] Dr. Grace Abdul Urea nitrogen/Creatinine [Mass ratio] 21.7 mg/mg Normal [facility] Comment on above: Performed By: #### C VDTBH #### [facility] [address] [place] [address] Dr. Grace Abdul PROF CHEM 8 (BAS METB)on Anion gap [Moles/Vol] 13.6 mmol/L Normal [facility] Comment on above: Performed By: #### C VDTBH #### [facility] [address] [place] [address] Dr. Grace Abdul Calcium [Mass/Vol] 8.8 mg/dL Normal 8.5-10.1 [facility] Comment on above: Performed By: #### C VDTBH #### [facility] [address] [place] [address] Dr. Grace Abdul Chloride [Moles/Vol] 88 mmol/L Critically low 98-107 [facility] Comment on above: Performed By: #### C VDTBH #### [facility] [address] [address] [address] Grace Abdul CO2 [Moles/Vol] 21.8 mmol/L Normal 21.0-32.0 [facility] Comment on above: Performed By: #### C VDTBH #### [facility] [address] [place] [address] Dr. Grace Abdul Creatinine [Mass/Vol] 1.11 mg/dL Critically high 0.55-1.02 [facility] Comment on above: Performed By: #### C VDTBH #### [facility] [address] [address] [address] Grace Abdul EGFR-AF UKRAINIAN 57 mL/min/1.73m2 Critically low >=60 [facility] Comment on above: Performed By: #### C VDTBH #### [facility] [address] [place] [address] Dr. Grace Abdul EGFR-NON AF UKRAINIAN 47 mL/min/1.73m2 Critically low >=60 [facility] Comment on above: Performed By: #### C VDTBH #### [facility] [address] [address] [address] Grace Abdul Glucose [Mass/Vol] 132 mg/dL Critically high 74-106 [facility] Comment on above: Performed By: #### C VDTBH #### [facility] [address] [place] [address] Dr. Grace Abdul Potassium [Moles/Vol] 3.4 mmol/L Critically low 3.5-5.1 [facility] Comment on above: Performed By: #### C VDTBH #### [facility] [address] [place] [address] Dr. Grace Abdul Sodium [Moles/Vol] 120 mmol/L Critically low 136-145 [facility] Comment on above: Result Comment: Test Repeated. Critical Value Verified Performed By: #### C VDTBH #### [facility] [address] [place] [address] Dr. Grace Abdul Urea nitrogen [Mass/Vol] 25.0 mg/dL Critically high 7.0-18.0 [facility] Comment on above: Performed By: #### C VDTBH #### [facility] [address] [address] [address] Grace Abdul Urea nitrogen/Creatinine [Mass ratio] 22.5 mg/mg Normal [facility] Comment on above: Performed By: #### C VDTBH #### [facility] [address] [address] [address] Grace Abdul PROTIMEon 11-15-2021 INR Coag (PPP) [Relative time] 0.94 {INR} Normal [facility] Comment on above: Performed By: #### C VDTBH #### [facility] [address] [address] [address] Grace Abdul INR GUIDELINES SEE BELOW Normal [facility] Comment on above: Result Comment: DURAN RED INR: 2.0 - 3.0 CONDITIONS NOT LISTED BELOW 2.5 - 3.5 FOR PROSTHETIC HEART VALVE REPLACEMENT 2.5 - 3.5 RECURRENT THROMBOSIS Performed By: #### C VDTBH #### [facility] [address] [address] [address] Grace Abdul PT Coag (PPP) [Time] 10.2 s Normal 9.0-11.6 [facility] Comment on above: Performed By: #### C VDTBH #### [facility] [address] [place] [address] Dr. Grace Abdul XR ABD FLAT UP_PA [...] by: JARET LINARES Date: 2021-11-15 13:56 Normal [facility] BNPon 11-11-2021 Natriuretic peptide B (Bld) [Mass/Vol] 546.0 pg/mL Normal <=1,800.0 [facility] Comment on above: Performed By: #### C MP, TSH, HSTROPN, BNP ####[facility] [id number] [place], [place] [id number]. Grace Abdul CBC AUTO DIFFon 11-11-2021 BASO # 0.0 103/ul Normal 0.0-0.1 [facility] Comment on above: Performed By: #### C BC #### [facility] [address] [address] [address] Grace Abdul Basophils/100 WBC (Bld) 0.3 % Normal 0.2-2.0 [facility] Comment on above: Performed By: #### C BC #### [facility] [address] [address] [address] Grace Abdul EO # 0.0 103/ul Normal 0.0-0.7 [facility] Comment on above: Performed By: #### C BC #### [facility] [address] [address] [address] Grace Abdul Eosinophils/100 WBC (Bld) 0.5 % Critically low 0.9-7.0 [facility] Comment on above: Performed By: #### C BC #### [facility] [address] [address] [address] Grace Abdul Erythrocyte distribution width (RBC) [Ratio] 12.9 % Normal 11.0-15.0 [facility] Comment on above: Performed By: #### C BC #### [facility] [address] [address] [address] Grace Abdul Hematocrit (Bld) [Volume fraction] 36.1 % Normal 36.0-48.0 [facility] Comment on above: Performed By: #### C BC #### [facility] [address] [address] [address] Grace Abdul Hemoglobin (Bld) [Mass/Vol] 12.3 g/dL Normal 12.0-16.0 [facility] Comment on above: Performed By: #### C BC #### [facility] [address] [address] [address] Grace Abdul IG # 0.01 10e3/ul Normal 0.00-0.03 [facility] Comment on above: Performed By: #### C BC #### [facility] [address] [place] [address] Dr. Grace Abdul IG % 0.3 % Normal 0.0-0.5 [facility] Comment on above: Performed By: #### C BC #### [facility] [address] [place] [address] Dr. Grace Abdul LYMPH # 0.6 103/ul Critically low 1.2-3.8 [facility] Comment on above: Performed By: #### C BC #### [facility] [address] [place] [address] Dr. Grace Abdul Lymphocytes/100 WBC (Bld) 14.8 % Critically low 20.5-60.0 [facility] Comment on above: Performed By: #### C BC #### [facility] [address] [place] [address] Dr. Grace Abdul MANUAL DIFF REQ NO Normal [facility] Comment on above: Performed By: #### C BC #### [facility] [address] [place] [address] Dr. Grace Abdul MCH (RBC) [Entitic mass] 31.5 pg Normal 26.7-34.0 [facility] Comment on above: Performed By: #### C BC #### [facility] [address] [place] [address] Dr. Grace Abdul MCHC (RBC) [Mass/Vol] 34.1 g/dL Normal 29.9-35.2 [facility] Comment on above: Performed By: #### C BC #### [facility] [address] [place] [address] Dr. Grace Abdul MCV (RBC) [Entitic vol] 92.6 fL Normal 81.0-99.0 [facility] Comment on above: Performed By: #### C BC #### [facility] [address] [place] [address] Dr. Grace Abdul MONO # 0.5 103/ul Normal 0.3-0.8 [facility] Comment on above: Performed By: #### C BC #### [facility] [address] [place] [address] Dr. Grace Abdul Monocytes/100 WBC (Bld) 13.5 % Critically high 1.7-12.0 [facility] Comment on above: Performed By: #### C BC #### [facility] [address] [place] [address] Dr. Grace Abdul NEUT # 2.7 103/ul Normal 1.4-6.5 [facility] Comment on above: Performed By: #### C BC #### [facility] [address] [place] [address] Dr. Grace Abdul Neutrophils/100 WBC (Bld) 70.6 % Normal 43.0-75.0 [facility] Comment on above: Performed By: #### C BC #### [facility] [address] [place] [address] Dr. Grace Abdul Platelet mean volume (Bld) [Entitic vol] 9.2 fL Critically low 9.5-13.5 [facility] Comment on above: Performed By: #### C BC #### [facility] [address] [place] [address] Dr. Grace Abdul PLT 279 103/ul Normal 150-450 [facility] Comment on above: Performed By: #### C BC #### [facility] [address] [place] [address] Dr. Grace Abdul RBC 3.90 106/ul Critically low 4.20-5.40 [facility] Comment on above: Performed By: #### C BC #### [facility] [address] [place] [address] Dr. Grace Abdul WBC 3.9 103/ul Critically low 4.0-11.0 [facility] Comment on above: Performed By: #### C BC #### [facility] [address] [place] [address] Dr. Grace Abdul PROF 14(COMP METB)on 022 Albumin [Mass/Vol] 3.3 g/dL Critically low 3.4-5.0 [facility] Comment on above: Performed By: #### C MP, TSH, HSTROPN, BNP #### [facility] [address] [place] [address] Dr. Grace Abdul Albumin/Globulin [Mass ratio] 1.2 {ratio} Normal [facility] Comment on above: Performed By: #### C MP, TSH, HSTROPN, BNP #### [facility] [address] [place] [address] Dr. Grace Abdul ALP [Catalytic activity/Vol] 60 U/L Normal 46-116 [facility] Comment on above: Performed By: #### C MP, TSH, HSTROPN, BNP #### [facility] [address] [place] [address] Dr. Grace Abdul ALT [Catalytic activity/Vol] 26 U/L Normal 14-59 [facility] Comment on above: Performed By: #### C MP, TSH, HSTROPN, BNP #### [facility] [address] [place] [address] Dr. Grace Abdul Anion gap [Moles/Vol] 14.8 mmol/L Normal [facility] Comment on above: Performed By: #### C MP, TSH, HSTROPN, BNP #### [facility] [address] [place] [address] Dr. Grace Abdul AST [Catalytic activity/Vol] 20 U/L Normal 15-37 [facility] Comment on above: Performed By: #### C MP, TSH, HSTROPN, BNP #### [facility] [address] [place] [address] Dr. Grace Abdul Bilirubin [Mass/Vol] 0.3 mg/dL Normal 0.2-1.0 [facility] Comment on above: Performed By: #### C MP, TSH, HSTROPN, BNP #### [facility] [address] [place] [address] Dr. Grace Abdul Calcium [Mass/Vol] 8.2 mg/dL Critically low 8.5-10.1 [facility] Comment on above: Performed By: #### C MP, TSH, HSTROPN, BNP #### [facility] [address] [address] [address] Grace Abdul Chloride [Moles/Vol] 100 mmol/L Normal 98-107 [facility] Comment on above: Performed By: #### C MP, TSH, HSTROPN, BNP #### [facility] [address] [address] [address] Grace Abdul CO2 [Moles/Vol] 23.8 mmol/L Normal 21.0-32.0 [facility] Comment on above: Performed By: #### C MP, TSH, HSTROPN, BNP #### [facility] [address] [place] [address] Dr. Grace Abdul Creatinine [Mass/Vol] 1.27 mg/dL Critically high 0.55-1.02 [facility] Comment on above: Performed By: #### C MP, TSH, HSTROPN, BNP #### [facility] [address] [address] [address] Grace Abdul EGFR-AF UKRAINIAN 49 mL/min/1.73m2 Critically low >=60 [facility] Comment on above: Performed By: #### C MP, TSH, HSTROPN, BNP #### [facility] [address] [address] [address] Grace Abdul EGFR-NON AF UKRAINIAN 40 mL/min/1.73m2 Critically low >=60 [facility] Comment on above: Performed By: #### C MP, TSH, HSTROPN, BNP #### [facility] [address] [address] [address] Grace Abdul Globulin (S) [Mass/Vol] 2.7 g/dL Normal [facility] Comment on above: Performed By: #### C MP, TSH, HSTROPN, BNP #### [facility] [address] [address] [address] Grace Abdul Glucose [Mass/Vol] 116 mg/dL Critically high 74-106 [facility] Comment on above: Performed By: #### C MP, TSH, HSTROPN, BNP #### [facility] [address] [address] [address] Grace Abdul Potassium [Moles/Vol] 3.6 mmol/L Normal 3.5-5.1 [facility] Comment on above: Performed By: #### C MP, TSH, HSTROPN, BNP #### [facility] [address] [address] [address] Grace Abdul Protein [Mass/Vol] 6.0 g/dL Critically low 6.4-8.2 [facility] Comment on above: Performed By: #### C MP, TSH, HSTROPN, BNP #### [facility] [address] [place] [address] Dr. Grace Abdul Sodium [Moles/Vol] 135 mmol/L Critically low 136-145 [facility] Comment on above: Performed By: #### C MP, TSH, HSTROPN, BNP #### [facility] [address] [place] [address] Dr. Grace Abdul Urea nitrogen [Mass/Vol] 25.0 mg/dL Critically high 7.0-18.0 [facility] Comment on above: Performed By: #### C MP, TSH, HSTROPN, BNP #### [facility] [address] [address] [address] Grace Abdul Urea nitrogen/Creatinine [Mass ratio] 19.7 mg/mg Normal [facility] Comment on above: Performed By: #### C MP, TSH, HSTROPN, BNP #### [facility] [address] [address] [address] Grace Abdul PROTIMEon 11-11-2021 INR Coag (PPP) [Relative time] 0.95 {INR} Normal [facility] Comment on above: Performed By: #### B MP #### [facility] [address] [place] [address] Dr. Grace Abdul INR GUIDELINES SEE BELOW Normal [facility] Comment on above: Result Comment: DURAN RED INR: 2.0 - 3.0 CONDITIONS NOT LISTED BELOW 2.5 - 3.5 FOR PROSTHETIC HEART VALVE REPLACEMENT 2.5 - 3.5 RECURRENT THROMBOSIS Performed By: #### B MP #### [facility] [address] [address] [address] Grace Abdul PT Coag (PPP) [Time] 10.3 s Normal 9.0-11.6 [facility] Comment on above: Performed By: #### B MP #### [facility] [address] [place], [place] [address] Dr. Grace Abdul PTTon 11-11-2021 aPTT Coag (Bld) [Time] 21.3 s Critically low 22.3-36.2 [facility] Comment on above: Performed By: #### B MP #### [facility] [address] [address] [address] Grace Abdul TROPONIN, HIGH SENSITIVITYon 11-11-2021 HSTROP 6.5 pg/mL Normal 4.0-51.3 [facility] Comment on above: Result Comment: CUT- OFF POINTS HAVE BEEN ESTABLISHED BASED ON THE FOURTH UNIVERSAL DEFINITIONS OF MYOCARDIAL INFARCTION. THE UPPER REFERENCE LIMIT (URL) OF TROPONIN, DEFINED THE 99TH PERCENTILE OF cTnI DISTRIBUTION IN A REFERENCE POPULATION, HAS BEEN CONFIRMED THE DECISION THRESHOLD FOR [place] DIAGNOSIS. Performed By: #### C MP, TSH, HSTROPN, BNP #### [facility] [address] [id number] Grace Abdul TSHon 11-11-2021 TSH 2.140 uIU/mL Normal 0.358-3.740 [facility] Comment on above: Performed By: #### C MP, TSH, HSTROPN, BNP ####[facility] [id number] [place], [place] [id number]. Grace Abdul XR CHEST 1 Von 11-11-2021 [...] KRANTHIRASHAWN CONNORS Date: 2021-11-11 13:34 Normal [facility] CARDIAC JOVITA ADMITon 022 CK [Catalytic activity/Vol] 89 U/L Normal 26-192 [facility] Comment on above: Performed By: #### C VDTBH #### [facility] [address] [address] [address] Grace Abdul CK.MB [Mass/Vol] 1.92 ng/mL Normal <=3.60 [facility] [place] Comment on above: Performed By: #### C VDTBH #### [facility] [address] [place] [address] Dr. Grace Abdul HSTROP 5.7 pg/mL Normal 4.0-51.3 [facility] Comment on above: Result Comment: CUT- OFF POINTS HAVE BEEN ESTABLISHED BASED ON THE FOURTH UNIVERSAL DEFINITIONS OF MYOCARDIAL INFARCTION. THE UPPER REFERENCE LIMIT (URL) OF TROPONIN, DEFINED THE 99TH PERCENTILE OF cTnI DISTRIBUTION IN A REFERENCE POPULATION, HAS BEEN CONFIRMED THE DECISION THRESHOLD FOR [place] DIAGNOSIS. Performed By: #### C VDTBH #### [facility] [address] [place] [address] Dr. Grace Abdul JOHNNA 86 ng/mL Critically high 9-82 [facility] Comment on above: Performed By: #### C VDTBH #### [facility] [address] [place] [address] Dr. Grace Abdul CBC AUTO DIFFon 09-13-2021 BASO # 0.0 103/ul Normal 0.0-0.1 [facility] Comment on above: Performed By: #### C VDTBH #### [facility] [address] [place] [address] Dr. Grace Abdul Basophils/100 WBC (Bld) 0.5 % Normal 0.2-2.0 [facility] Comment on above: Performed By: #### C VDTBH #### [facility] [address] [place] [address] Dr. Grace Abdul EO # 0.0 103/ul Normal 0.0-0.7 [facility] Comment on above: Performed By: #### C VDTBH #### [facility] [address] [place] [address] Dr. Grace Abdul Eosinophils/100 WBC (Bld) 0.7 % Critically low 0.9-7.0 [facility] Comment on above: Performed By: #### C VDTBH #### [facility] [address] [place] [address] Dr. Grace Abdul Erythrocyte distribution width (RBC) [Ratio] 13.2 % Normal 11.0-15.0 [facility] Comment on above: Performed By: #### C VDTBH #### [facility] [address] [place] [address] Dr. Grace Abdul Hematocrit (Bld) [Volume fraction] 34.8 % Critically low 36.0-48.0 [facility] Comment on above: Performed By: #### C VDTBH #### [facility] [address] [place] [address] Dr. Grace Abdul Hemoglobin (Bld) [Mass/Vol] 11.9 g/dL Critically low 12.0-16.0 [facility] Comment on above: Performed By: #### C VDTBH #### [facility] [address] [place] [address] Dr. Grace Abdul IG # 0.01 10e3/ul Normal 0.00-0.03 [facility] Comment on above: Performed By: #### C VDTBH #### [facility] [address] [place] [address] Dr. Grcae Abdul IG % 0.2 % Normal 0.0-0.5 [facility] Comment on above: Performed By: #### C VDTBH #### [facility] [address] [place] [address] Dr. Grace Abdul LYMPH # 0.6 103/ul Critically low 1.2-3.8 [facility] Comment on above: Performed By: #### C VDTBH #### [facility] [address] [address] [address] Grace Abdul Lymphocytes/100 WBC (Bld) 14.2 % Critically low 20.5-60.0 [facility] Comment on above: Performed By: #### C VDTBH #### [facility] [address] [address] [address] Grace Abdul MANUAL DIFF REQ NO Normal [facility] Comment on above: Performed By: #### C VDTBH #### [facility] [address] [address] [address] Grace Abdul MCH (RBC) [Entitic mass] 31.5 pg Normal 26.7-34.0 [facility] Comment on above: Performed By: #### C VDTBH #### [facility] [address] [place] [address] Dr. Grace Abdul MCHC (RBC) [Mass/Vol] 34.2 g/dL Normal 29.9-35.2 [facility] Comment on above: Performed By: #### C VDTBH #### [facility] [address] [address] [address] Grace Abdul MCV (RBC) [Entitic vol] 92.1 fL Normal 81.0-99.0 [facility] Comment on above: Performed By: #### C VDTBH #### [facility] [address] [place] [address] Dr. Grace Abdul MONO # 0.7 103/ul Normal 0.3-0.8 [facility] Comment on above: Performed By: #### C VDTBH #### [facility] [address] [address] [address] Grace Abdul Monocytes/100 WBC (Bld) 15.6 % Critically high 1.7-12.0 [facility] Comment on above: Performed By: #### C VDTBH #### [facility] [address] [address] [address] Grace Abdul NEUT # 3.0 103/ul Normal 1.4-6.5 [facility] Comment on above: Performed By: #### C VDTBH #### [facility] [address] [address] [address] Grace Abdul Neutrophils/100 WBC (Bld) 68.8 % Normal 43.0-75.0 [facility] Comment on above: Performed By: #### C VDTBH #### [facility] [address] [address] [address] Grace Abdul Platelet mean volume (Bld) [Entitic vol] 9.5 fL Normal 9.5-13.5 [facility] Comment on above: Performed By: #### C VDTBH #### [facility] [address] [place] [address] Dr. Grace Abdul PLT 303 103/ul Normal 150-450 [facility] Comment on above: Performed By: #### C VDTBH #### [facility] [address] [place] [address] Dr. Grace Abdul RBC 3.78 106/ul Critically low 4.20-5.40 [facility] Comment on above: Performed By: #### C VDTBH #### [facility] [address] [place] [address] Dr. Grace Abdul WBC 4.4 103/ul Normal 4.0-11.0 [facility] Comment on above: Performed By: #### C VDTBH #### [facility] [address] [place] [address] HEAD WO CONon [...] KRANTHI CONNORS Date: 2021-09-13 13:24 Normal [facility] Covid-19 PCR (CVDTB)on 08-22 SARS-CoV-2 (COVID-19) RNA LUISITO+probe Ql (Unsp spec) Not detected Normal NOT DETECTED [facility] Comment on above: Result Comment: When diagnostic [...] for this test is supported by the [place] of Health and Human Service's declaration that [...] used). Performed By: #### C VDTB #### [facility] [address] [place] [address] Dr. Grace Abdul ER URINE PROFILEon 2 Bilirubin Ql (U) Negative Normal NEGATIVE [facility] Comment on above: Performed By: #### B MP #### [facility] [address] [place] [address] Dr. Grace Abdul Clarity (U) CLEAR Normal CLEAR [facility] Comment on above: Performed By: #### B MP #### [facility] [address] [place] [address] Dr. Grace Abdul Color (U) LT. YELLOW Normal YELLOW [facility] Comment on above: Performed By: #### B MP #### [facility] [address] [place] [address] Dr. Grace HIGGINS A micrscopic examination will be performed if indicated. Normal [facility] Comment on above: Performed By: #### B MP #### [facility] [address] [place] [address] Dr. Grace Abdul Glucose Ql (U) Negative Normal NEGATIVE [facility] Comment on above: Performed By: #### B MP #### [facility] [address] [place] [address] Dr. Grace Abdul Hemoglobin Ql (U) Negative Normal NEGATIVE [facility] Comment on above: Performed By: #### B MP #### [facility] [address] [place] [address] Dr. Grace Abdul Ketones Ql (U) TRACE Abnormal NEGATIVE [facility] Comment on above: Performed By: #### B MP #### [facility] [address] [place] [address] Dr. Grace Abdul LEUKOCYTES TRACE Abnormal NEGATIVE [facility] Comment on above: Performed By: #### B MP #### [facility] [address] [place] [address] Dr. Grace Abdul Nitrite Ql (U) Negative Normal NEGATIVE [facility] Comment on above: Performed By: #### B MP #### [facility] [address] [place] [address] Dr. Grace Abdul pH (U) 8.0 [pH] Normal 5-9 [facility] Comment on above: Performed By: #### B MP #### [facility] [address] [place] [address] Dr. Grace Abdul SPEC GRAVITY 1.015 Normal 1.005-<=1.025 [facility] Comment on above: Performed By: #### B MP #### [facility] [address] [place] [address] Dr. Grace Abdul UA PROTEIN Negative Normal NEGATIVE/ TRACE [facility] Comment on above: Performed By: #### B MP #### [facility] [address] [place] [address] Dr. Grace Abdul UR MICRO IND INDICATED Normal [facility] Comment on above: Performed By: #### B MP #### [facility] [address] [place] [address] Dr. Grace Abdul Urobilinogen Qn (U) 0.2 {Ashley'U}/dL Normal 0.2 - 1. 0 [facility] Comment on above: Performed By: #### B MP #### [facility] [address] [place] [address] Dr. Grace Abdul PROF 14(COMP METB)on 022 Albumin [Mass/Vol] 3.8 g/dL Normal 3.4-5.0 [facility] Comment on above: Performed By: #### C VDTBH #### [facility] [address] [place] [address] Dr. Grace Abdul Albumin/Globulin [Mass ratio] 1.4 {ratio} Normal [facility] Comment on above: Performed By: #### C VDTBH #### [facility] [address] [place] [address] Dr. Grace Abdul ALP [Catalytic activity/Vol] 53 U/L Normal 46-116 [facility] Comment on above: Performed By: #### C VDTBH #### [facility] [address] [place] [address] Dr. Grace Abdul ALT [Catalytic activity/Vol] 20 U/L Normal 14-59 [facility] Comment on above: Performed By: #### C VDTBH #### [facility] [address] [place] [address] Dr. Grace Abdul Anion gap [Moles/Vol] 12.0 mmol/L Normal [facility] Comment on above: Performed By: #### C VDTBH #### [facility] [address] [place] [address] Dr. Grace Abdul AST [Catalytic activity/Vol] 18 U/L Normal 15-37 [facility] Comment on above: Performed By: #### C VDTBH #### [facility] [address] [place] [address] Dr. Grace Abdul Bilirubin [Mass/Vol] 0.4 mg/dL Normal 0.2-1.0 [facility] Comment on above: Performed By: #### C VDTBH #### [facility] [address] [place] [address] Dr. Grace Abdul Calcium [Mass/Vol] 9.5 mg/dL Normal 8.5-10.1 [facility] Comment on above: Performed By: #### C VDTBH #### [facility] [address] [place] [address] Dr. Grace Abdul Chloride [Moles/Vol] 99 mmol/L Normal 98-107 [facility] Comment on above: Performed By: #### C VDTBH #### [facility] [address] [place] [address] Dr. Grace Abdul CO2 [Moles/Vol] 28.1 mmol/L Normal 21.0-32.0 [facility] Comment on above: Performed By: #### C VDTBH #### [facility] [address] [place] [address] Dr. Grace Abdul Creatinine [Mass/Vol] 1.25 mg/dL Critically high 0.55-1.02 [facility] Comment on above: Performed By: #### C VDTBH #### [facility] [address] [place] [address] Dr. Grace Abdul EGFR-AF UKRAINIAN 50 mL/min/1.73m2 Critically low >=60 [facility] Comment on above: Performed By: #### C VDTBH #### [facility] [address] [place] [address] Dr. Grace Abdul EGFR-NON AF UKRAINIAN 41 mL/min/1.73m2 Critically low >=60 [facility] Comment on above: Performed By: #### C VDTBH #### [facility] [address] [place] [address] Dr. Grace Abdul Globulin (S) [Mass/Vol] 2.7 g/dL Normal [facility] Comment on above: Performed By: #### C VDTBH #### [facility] [address] [place] [address] Dr. Grace Abdul Glucose [Mass/Vol] 131 mg/dL Critically high 74-106 [facility] Comment on above: Performed By: #### C VDTBH #### [facility] [address] [place] [address] Dr. Grace Abdul Potassium [Moles/Vol] 4.1 mmol/L Normal 3.5-5.1 [facility] Comment on above: Performed By: #### C VDTBH #### [facility] [address] [place] [address] Dr. Grace Abdul Protein [Mass/Vol] 6.5 g/dL Normal 6.4-8.2 [facility] Comment on above: Performed By: #### C VDTBH #### [facility] [address] [place] [address] Dr. Grace Abdul Sodium [Moles/Vol] 135 mmol/L Critically low 136-145 [facility] Comment on above: Performed By: #### C VDTBH #### [facility] [address] [place] [address] Dr. Grace Abdul Urea nitrogen [Mass/Vol] 33.0 mg/dL Critically high 7.0-18.0 [facility] Comment on above: Performed By: #### C VDTBH #### [facility] [address] [place] [address] Dr. Grace Abdul Urea nitrogen/Creatinine [Mass ratio] 26.4 mg/mg Normal [facility] Comment on above: Performed By: #### C VDTBH #### [facility] [address] [place] [address] Dr. Grace Abdul URINE MICROSCOPIC ONLYon BACTERIA NONE SEEN Normal NONE SEEN [facility] Comment on above: Performed By: #### C BC #### [facility] [address] [place] [address] Dr. Grace Abdul Bacteria identified Cx Nom (U) NOT INDICATED Normal [facility] Comment on above: Performed By: #### C BC #### [facility] [address] [place] [address] Dr. Grace Abdul CAST NONE SEEN Normal NONE SEEN [facility] Comment on above: Performed By: #### C BC #### [facility] [address] [address] [address] Grace Abdul Crystals LM Nom (Urine sed) NONE SEEN Normal NONE SEEN [facility] Comment on above: Performed By: #### C BC #### [facility] [address] [address] [address] Grace Abdul Epithelial cells LM Ql (Urine sed) FEW Abnormal NONE SEEN /RARE [facility] Comment on above: Performed By: #### C BC #### [facility] [address] [address] [address] Grace Abdul MUCOUS NONE SEEN Normal NONE SEEN [facility] Comment on above: Performed By: #### C BC #### [facility] [address] [place] [address] Dr. Grace Abdul RBC 0-2 Normal 0-2 [facility] Comment on above: Performed By: #### C BC #### [facility] [address] [place] [address] Dr. Grace Abdul WBC 0-2 Abnormal NONE SEEN [facility] Comment on above: Performed By: #### C BC #### [facility] [address] [place] [address] Dr. Grace Abdul XR CHEST 1 Von [...] KRANTHI CONNORS Date: 2021-09-13 13:19 Normal [facility] CERV SP W/OBLS/FLEX/EXT 6 OR >on 12-12-2020 CERV SP W/OBLS/FLEX/EXT 6 OR > STUDY: CERV SP W/OBLS/FLEX/EXT 6 OR >; 12/12/2020 9:40 am INDICATION: NECK PAIN. COMPARISON: None. ACCESSION NUMBER(S): [id number] ORDERING CLINICIAN: Aiden oYunger TECHNIQUE: AP, lateral, flexion and extension and [...] findings. Dense left carotid artery calcifications. Normal [facility] Vital Signs Date Time Vital Sign Value Performing Clinician Aimee pollock 09-21-2022 12:51-0400 Diastolic blood pressure 60 mm[Hg] Carolyn Vanegas MD Work Phone: [facility] 09-21-2022 12:51-0400 Heart rate 67 /min Carolyn Vanegas MD Work Phone: [facility] 09-21-2022 12:51-0400 Systolic blood pressure 153 mm[Hg] Carolyn Vanegas MD Work Phone: [facility] 05-14-2022 14:24-0400 Diastolic blood pressure 87 mm[Hg] Marty Dozier DO Work Phone: [facility] 05-14-2022 14:24-0400 Heart rate 72 /min Marty Dozier DO Work Phone: [facility] 05-14-2022 14:24-0400 Systolic blood pressure 158 mm[Hg] Marty Dozier DO Work Phone: [facility] 05-14-2022 14:22-0400 Body height 152.4 cm Marty Dozier DO Work Phone: [facility] 05-14-2022 14:220400 Body weight 76.39 kg Marty Dozier DO Work Phone: [facility] 05-14-2022 14:220400 SaO2% (BldA) [Mass fraction] 99 % Marty Dozier DO Work Phone: [facility] Encounters Encounter Date Encounter Type Care Provider Facility Start: 01-17-2023 End: 01-18-2023 ambulatory Lyn Quiñones MD [facility]: [facility] Start: 12-27-2022 End: 12-28-2022 ambulatory Lyn Quiñones MD [facility]: [facility] Start: 12-20-2022 End: 12-21-2022 ambulatory Lyn Quiñones MD Facility: [facility] Start: 11-15-2022 End: 11-16-2022 ambulatory Lyn Quiñones MD Facility: [facility] Start: 09-21-2022 End: 09-21-2022 ambulatory GALINA ROGERS Facility:[facility] Start: 09-21-2022 End: 09-21-2022 Patient encounter procedure [...] Start: 05-14-2022 End: 05-14-2022 ambulatory MARTY DOZIER Facility:[facility] Start: 05-14-2022 End: 05-14-2022 Patient encounter procedure [...] Evaluation and management of inpatient SHAIKH Zaria [facility] Facility:[facility] Start: 11-11-2021 End: 11-11-2021 ambulatory ROGE ALEJO . Facility:[facility] Start: 09-30-2021 End: 10-01-[address] NIKO BECKWITH . Facility:[facility] Start: 09-13-2021 End: 09-13-2021 ambulatory ROGE ALEJO . Facility:[facility] Start: 09-12-2017 End: 09-13-2017 Patient encounter DEFAULT PHYSICIAN Facility:[facility] Plan of Treatment Date Care Activity Detail Author Start: 10-22-2022 Influenza vaccination INFLUENZA (#1) [facility] Start: 04-11-2022 COVID-19 VACCINE (6 - Moderna series) COVID-19 VACCINE (6 - Moderna series) [facility] Start: 02-21-2022 ADVANCE DIRECTIVE DISCUSSION ADVANCE DIRECTIVE DISCUSSION [facility] Start: 02-21-2022 DEPRESSION ASSESSMENT DEPRESSION ASS ESSMENT [facility] Start: 11-12-2017 PNEUMOCOCCAL: 65+ (2 - PPSV23 if available, else PCV20) PNEUMOCOCCAL: 65+ (2 - PPSV23 if available, else PCV20) [facility] Start: 11-12-2017 PNEUMOCOCCAL: 65+ (2 - PPSV23 or PCV20) PNEUMOCOCCAL: 65+ (2 - PPSV23 or PCV20) [facility] Start: 07-22-2017 SHINGRIX VACCINE (2 of 3) MANLEY GRIX VACCINE (2 of 3) [facility] Start: 04-30-2004 BONE DENSITY BONE DENSITY [facility] Start: 04-30-1984 DIABETES SCREEN DIABETES SCREEN [facility] Start: 04-30-1958 Urine microalbumin profile DTAP,TDAP ,TD (1 - Tdap) [facility] Immunizations Immunization Date Immunization Notes Care Provider Armando schwartz 12-02-2021 Influenza, injectabl e, Madin Disputanta Canine Kidney, preservative free, quadrivalent Marty Dozier DO Work Phone: [facility] 11-28-2020 influenza virus vacc ine, unspecified formulation Marty Dozier DO Work Phone: [facility] 11-29-2019 Seasonal trivalent influenza vaccine, adjuvanted, preservative free Marty Dozier DO Work Phone: [facility] 05-27-2017 zoster vaccine, live Marty Dozier DO Work Phone: [facility] 11-12-2016 pneumococcal conjuga te vaccine, 13 valent Marty Dozier DO Work Phone: [facility] Payers Date Payer Category Payer Private Health Insurance [facility] AARP SUPPLEMENT [id number] 2022-Present [phone] [address] [place] [address] Indemnity [id number] 2004 Medicare [id number] 2004 Unknown 1959 Medicare [id number] 1959 Self-pay 1959 Unknown [id number] 1939 Unknown [id number] 2.840.1.952701.3.579.2 .593 1939 Unknown [id number] .840.1.522474.3.579.2 .593 1939 Unknown [id number] .840.1.333621.3.579.2 .593 1939 Unknown [id number] .16840.1.707778.3.579.2 .593 1939 Unknown [id number] 2.16.840.1.905094.3.579.2 .593 1939 Unknown [id number] 2.16840.1.156814.3.579.2 .593 1939 Unknown [id number] 2.16.840.1.105432.3.579.2 .593 1939 Unknown [id number] 2.16.840.1.400291.3.579.2 .593 1939 Unknown [id number] 2.16.840.1.835951.3.579.2 .593 1939 Unknown [id number] 2.16.840.1.734965.3.579.2 .593 1939 Unknown [id number] 2.16.840.1.275701.3.579.2 .593 1939 Unknown [id number] 2.16.840.1.418086.3.579.2 .593 1939 Unknown [id number] 2.16.840.1.775953.3.579.2 .593 1939 Unknown [id number] 2.16.840.1.885041.3.579.2 .593 1939 Unknown [id number] 2.16.840.1.822665.3.579.2 .593 1939 Unknown [id number] 2.16.840.1.956447.3.579.2 .593 1939 Unknown [id number] 2.16.840.1.637452.3.579.2 .593 1939 Unknown [id number] 2.16.840.1.371401.3.579.2 .593 1939 Unknown [id number] 2.16.840.1.067820.3.579.2 .593 1939 Unknown [id number] 2.16.840.1.362530.3.579.2 .593 1939 Unknown [id number] 2.16.840.1.136527.3.579.2 .593 1939 Unknown [id number] 2.16.840.1.631149.3.579.2 .593 1939 Unknown [id number] 2.16.840.1.474418.3.579.2 .593 1939 Unknown [id number] 2.16.840.1.397511.3.579.2 .593 1939 Unknown [id number] 2.16.840.1.204685.3.579.2 .593 1939 Unknown [id number] 2.16.840.1.513094.3.579.2 .196 1939 Unknown [id number] 2.16.840.1.815863.3.579.2 .196 1939 Unknown [id number] 2.16.840.1.156993.3.579.2 .196 1939 Unknown [id number] 2.16.840.1.813915.3.579.2 .196 Social History Date Type Detail Facility Start: 05-14-2022 Tobacco smoking stat us NHIS Never smoked tobacco [facility] Start: 05-14-2022 Tobacco use and exposure Smoke less tobacco non-user [facility] Start: 05-14-2022 End: 09-21-2022 Alcohol intake Lifetime non-drinker (finding) [facility] Start: 1940 Sex Assigned At Not on file [facility] Start: 05-09-2022 End: 09-21-2022 History of Social function [facility] Start: 05-09-2022 End: 09-21-2022 Tobacco use panel [facility] Adult Depression Scr eening Assessment 2 [facility] Clinical Notes 09-30-2021 to 09-21-2022 Patient InstructionsCarolyn Vanegas MD - 09/21/2022 12:43 PM Naa Alves PA-C - 08/26/2022 11:45 AM EDTTmonika Bowman - 08/19/2022 4:06 PM EDT Note Date & Type Note Facility 09-21-2022 Note HNO ID: [id number] Author: Carolyn Vanegas MD Service: ? Author [...] Health Percentile 1 (more content not included)... [facility] 09-21-2022 Instructions Carolyn Vanegas MD [...] at this time. documented in this encounter [facility] 09-21-2022 History of Present illness [...] 4 - Moderate documented in this encounter [facility] 08-26-2022 Note HNO ID: [id number] Author: Kassandra Alves PA-C Service: ? Author Type: Physician Map Maker Type: Progress Notes Filed: 08/26/2022 11:52 AM Note Text: Per Triage: Alexa Delgado is a 82 year old female that requests evaluation of spine. Per review, they have symptoms of lower back pain. Numbness/tingling right leg. Difficulty walking. Weakness Request: 1st available Referring provider: Galina Rogers MD Patient out of state: no 2nd opinion: no Prior spine surgery: yes 2006 [facility] Address: [address] [place] [address] CMT: PT Injections Tylenol Hydrocodone Studies (Reports [...] reviewed during the appt Kassandra Alves PA-C [facility] 08-26-2022 History of Present illness Narrative Per Triage: Alexa Delgado is a 82 year old female that requests evaluation of spine. Per review, they have symptoms of lower back pain. Numbness/tingling right leg. Difficulty walking. Weakness Request: 1st available Referring provider: Galina Rogers MD Patient out of state: no 2nd opinion: no Prior spine surgery: yes 2006 [facility] Address: [address] [place] [address] CMT: PT Injections Tylenol Hydrocodone Studies (Reports [...] Delgado Are you being referred by a [place] for Spine Health Provider or Pain Management Provider at [facility]? No If answer is YES please schedule [...] facility where the MRI/CT/myelogram was completed: [facility] Address: [address] [place] [address] MRI/CT/myelogram viewable in Epic: No If not, please provide [phone] to fax in imaging reports for review. [...] physical therapy was completed PT Injection [facility] Address: [address] [place] [address] Have you tried any other kinds of [...] where the surgery was completed: 2006 [facility] Address: [address] [place] [address] Additional Comments documented in this encounter [facility] 08-19-2022 Note HNO ID: [id number] Author: Micheal Bowman Service: ? Author Type: ? Type: Progress Notes Filed: 08/26/2022 11:52 AM Note Text: Patient name: Alexa Delgado Are you being referred by a [place] for Spine Health Provider or Pain Management Provider at [facility]? No If answer is YES please schedule [...] facility where the MRI/CT/myelogram was completed: [facility] Address: [address] [place] [address] MRI/CT/myelogram viewable in Epic: No If not, please provide [phone] to fax in imaging reports for review. [...] physical therapy was completed PT Injection [facility] Address: [address] [place] [address] Have you tried any other kinds of [...] of where the surgery was completed: 2006 [facility] Address: [address] [place] [address] Additional Comments [facility] 07-16-2022 Note PROCEDURE: XR HIP [...] authenticated by: HERMES MENDOZA Date: 2022-07-16 11:28 [facility] 05-14-2022 Note HNO ID: [id number] Author: Marty Dozier, DO Service: ? Author Type: Physician Type: Progress Notes Filed: 05/15/2022 10:02 PM Note Text: [facility] Neurological [facility] - Medical Spine [...] Ratio: R>L low back Current Treatment: Medications Miami 5-325 mg BID - helps Diclofenac 75 [...] but still has pain -01/28/22 Noemi Sequeira PATIENT ADMITTING REPRESENTATIVE: BL Lumbar erector spinae TPI (0.125% Marcaine, [...] ongoing as of 04/17/21 -03/08/21 Noemi Sequeira PATIENT ADMITTING REPRESENTATIVE: Left rhomboid TPI (0.125% Marcaine, 40 mg Kenalog) -02/03/21 LESI - moderate relief for 4 days Prior spine surgery: -2006 L4-5 Discectomy Previously treated by: -[facility], previously Dr. Niko Beckwith [...] today. She has an evaluation at the [facility] tomorrow at the Spine Center. RECOMMENDATIONS: We will see the patient back in the office after she undergoes evaluation there to discuss her treatment plan thereafter. We will see the patient back in the office in approximately four weeks' time or sooner if needed. PMH: Lumbar scoliosis Depression on Negrita (more content not included)... [facility] 05-14-2022 History of Present illness Narrative Images from the original note were not included. [facility] [place] [facility] - Medical Spine Initial [...] Ratio: R>L low back Current Treatment: Medications Miami 5-325 mg BID - helps Diclofenac 75 [...] but still has pain -01/28/22 Noemi Sequeira PATIENT ADMITTING REPRESENTATIVE: BL Lumbar erector spinae TPI (0.125% Marcaine, [...] ongoing as of 04/17/21 -03/08/21 Noemi Sequeira PATIENT ADMITTING REPRESENTATIVE: Left rhomboid TPI (0.125% Marcaine, 40 mg Kenalog) -02/03/21 LESI - moderate relief for 4 days Prior spine surgery: -2006 L4-5 Discectomy Previously treated by: -[facility], previously Dr. Niko Beckwith [...] today. She has an evaluation at the [facility] tomorrow at the Spine Center. [...] reviewed 04/04/22 CT abd/pelvis with IV contrast, [facility], report: Abdominal wall: Old healed left pelvis fractures. Degenerative changes and scoliosis of the lumbar spine. IMPRESSION: No acute abdominal pathology. No acute inflammatory process. No obstructing urinary tract stone. No evidence for bowel obstruction. 11/15/21 XR abd, [facility], report: No acute osseous abnormality. There is moderate dextrocurvature of the lumbar spine. 05/08/2021 XR right hip/pelvis, [facility], report: Rotatory dextro scoliosis of the lumbar [...] TIME: 3:15 PM documented in this encounter [facility] 05-13-2022 Note CONSULTATION CONSULTATION DATE: [...] mg at h.s., diclofenac 75 mg b.i.d., Miami 5 mg b.i.d. EXAM: Notable for the [...] today. She has an evaluation at the [facility] tomorrow at the Spine Center. RECOMMENDATIONS: We will see the patient back in the office after she undergoes evaluation there to discuss her treatment plan thereafter. We will see the patient back in the office in approximately four weeks' time or sooner if needed. [facility] 04-06-2022 Note CONSULTATION CONSULTATION DATE: 04/06/2022 CHIEF [...] to kidney dysfunction also. The patient takes Miami, however, is very controlled and limits it to the point of detriment. Education was done. The patient was instructed to take the Miami to a b.i.d. to t.i.d. basis. The [...] b.i.d. basis. The patient may increase the Miami to 5/325 t.i.d. We will schedule the [...] the procedure. CC: Galina Rogers M.D. [facility] 03-11-2022 Note CONSULTATION CONSULTATION DATE: 03/11/2022 HISTORY [...] gave improvement for 24 hours. Medications include Miami 5/325 b.i.d., diclofenac 75 mg b.i.d., citalopram [...] back pain. PLAN: We will refill her Miami 5/325 b.i.d. We will prescribe her Buderer cream with gabapentin, ketorolac and prilocaine/lidocaine to be placed over her right knee. We will trial Requip 0.25 mg q.h.s. We will see the patient in the clinic in three months' time unless otherwise indicated. Patient agrees with the plan. [facility] 01-28-2022 Note CONSULTATION CONSULTATION DATE: 01/28/2022 HISTORY [...] daily which decreases her pain. Medications include Miami 5/325 b.i.d., Flexeril 5 mg b.i.d., diclofenac [...] does consent to. We will refill the Miami 5/325 b.i.d. We will pre-authorize for a right genicular nerve block under fluoroscopy. Patient will follow up in the clinic thereafter. [facility] 01-28-2022 Note CONSULTATION PROCEDURE DATE: 01/28/2022 PREOPERATIVE [...] be followed up in the office. [facility] 12-31-2021 Note CONSULTATION CONSULTATION DATE: 12/31/2021 HISTORY [...] Current medications include diclofenac 75 mg b.i.d., Miami 5/325 b.i.d., citalopram, Flexeril and multivitamin regimen. The patient does state that she breaks her Miami in half and the most she takes [...] and would like to move forward. [facility] 09-30-2021 Note CONSULTATION CONSULTATION DATE: 09/30/2021 This is a very [id number] female accompanied by her returning to the [...] Current medications include diclofenac 50 mg b.i.d., Miami 5/325 b. i.d. and Tylenol. She does [...] at 25 mg q.h.s. Refill for her Miami 5/325 b.i.d. will be sent as well. The patient is to continue with her vitamin regimen which she is currently compliant with, as well as heat application and pool exercises. The patient will be followed up in the office in three months' time unless otherwise indicated. The patient agrees with the plan of care. [facility] Evaluation note Diagnosis Chronic bilateral low back pain with right-sided sciatica- Primary Back pain, lumbosacral Lumbago Chronic sacroiliac joint pain Disorders of sacrum Lumbar spondylosis Lumbosacral spondylosis without myelopathy Scoliosis of lumbar spine, unspecified scoliosis type [facility] Spinal stenosis, lumbar region with neurogenic claudication- Primary Spondylolisthesis, lumbar region Other idiopathic scoliosis, lumbar region [facility] Diagnosis Obesity, Class I, BMI 30-34.9- Primary Obesity, unspecified Spinal stenosis, lumbar region with neurogenic claudication documented in this encounter [facility] Summary Purpose Family History No [...] By Jimmy bang Referred To Contact [facility] Diagnoses Spinal stenosis, lumbar region with neurogenic claudication Procedures CONSULT TO [facility]) OFFICE/OUTPATIENT [facility] 60-74 MINUTES Carolyn Vanegas MD [address] [place] [address] Referral ID Status Reason Start Date Expiration Date Visits Requested Visits Authorized [id number] Pending Review PCP Requested Referral 09/21/2022 09/21/2023 1 1 Additional Source Comments INFORMATION SOURCE (unrecogn ized section and content) DATE CREATED AUTHOR 09/13/2017 [facility] DATE CREATED AUTHOR AUTHOR'S ORGANIZ ATION 12/13/2020 [facility] DATE CREATED AUTHOR AUTHOR'S ORGANIZ ATION 07/30/2022 [facility] DATE CREATED AUTHOR AUTHOR'S ORGANIZ ATION 09/22/2022 [facility] DATE CREATED AUTHOR AUTHOR'S ORGANIZ ATION 01/21/2023 [facility] Source Comments (unrecognize d section and content) In the event this informatio n is protected by the Federal Confidentiality of Alcohol and Drug Abuse Patient Records regulations: The Federal rules restrict any use of the information to criminally investigate or prosecute any alcohol or drug abuse patient.[facility] the event this information is protected by the Federal Confidentiality of Alcohol and Drug Abuse Patient Records regulations: The Federal rules restrict any use of the information to criminally investigate or prosecute any alcohol or drug abuse patient.[facility] the event this information is protected by the Federal Confidentiality of Alcohol and Drug Abuse Patient Records regulations: The Federal rules restrict any use of the information to criminally investigate or prosecute any alcohol or drug abuse patient.[facility] Reason for Visit (unrecogniz ed section and content) Reason Comments New Patient Evaluation Low Back Pain Reason Comments New Patient Care Teams (unrecognized sec tion and content) [employer] Relationship Specialty Start Date End Date Galina Rogers MD [address] [place] [phone] PCP - General Family Medicine 05/14/22 Arsh De Leon Jr., DO [address] [facility] [address] [place] [address] Referring Orthopedics 05/03/22 Porsha Garcia [address] [id number] Pain Management 05/14/22 AlexandreanastacioArsh Jr., DO [address] [place] [address] Orthopedics 05/14/22 [employer] Relationship Specialty Start Date End Date Galina Rogers MD [address] [facility] [address] PCP - General Family Medicine 05/14/22 Arsh De Leon Jr., DO [address] [place] [address] Referring Orthopedics 05/03/22 Porsha Garcia [address] [place] [phone] Pain Management 05/14/22 Arsh De Leon Jr., DO [address] [place] [address] Orthopedics 05/14/22 Galina Rogers MD [address] [facility] [address] Referring Family Medicine 08/11/22 [employer] Relationship Specialty Start Date End Date Galina Rogers MD [address] [facility] [place] [address] PCP - General Family Medicine 05/14/22 Arsh De Leon Jr., DO [address] [place] [address] Referring Orthopedics 05/03/22 ShermiArmen santillanranneto [address] [place] [phone] Pain Management 05/14/22 Arsh De Leon Jr., DO [address] [facility] [address] [place] [address] Orthopedics 05/14/22 Galina Rogers MD [address] [facility] [place] [place] [address] Referring Family Medicine 08/11/22 FOR [...] BE BASED ON THE PRIMARY CLINICAL RECORDS. [facility] [employer] [facility]. provides no warranty or guarantee of the accuracy or completeness of information in this document.
--- NOTE | 2023-04-14 13:20 | XR_ITS ---
[address] [address] Patient Name: KARINA CORMIER MRN: [id number] date: 1940 Sex: F Assigned Patient Location: [facility] Current Patient Location: [facility] Accession/Order Number: [id number] Exam Date: 04/14/2023 13:35 Report Date: 04/14/2023 15:21 At the request of: GALINA PALMER Procedure: XR DEXA axial skeleton EXAMINATION: XR DEXA axial skeleton HISTORY: Age Related Osteoporosis M81.0 COMPARISON: DEXA bone densitometry 11/24/2020 TECHNIQUE: Dual-energy X-ray absorptiometry (DXA) was performed. FINDINGS: FOREARM ANALYSIS: Average bone mineral density is 0.61 g/cm2. T-score (standard deviation relative to young adult mean): -1.3 . -1.9% change since prior study. HIP ANALYSIS: Lowest bone mineral density is within the femoral neck, 0.994 g/cm2. T-score (standard deviation relative to young adult mean): -0.3 . +4.0% change since prior study. XR/XR DEXA axial skeleton IMPRESSION: [employer] Organization Classification: Osteopenia - Moderate Fracture Risk Electronically authenticated by: KRANTHI CONNORS Date: 04/14/2023 15:21
== END 2023-04-14 13:20 | disposition home or self-care (01) ==
LOC: RAD 13:19
PROVIDERS: PCP Family Medicine; Visit Provider Family Medicine
DX: M81.0 Age-related osteoporosis without current pathological fracture (principal); M85.80 Other specified disorders of bone density and structure, unspecified site
CPT/HCPCS: 77080

== ENCOUNTER 2023-04-20 08:53 | Day surgery (SDC) | payer MEDICARE, SELFPAY ==
--- NOTE | 2023-04-20 09:00 | FL_ITS ---
The [address] [address] Patient Name: KARINA CORMIER MRN: [id number] date: 1940 Sex: F Assigned Patient Location: [place] Current Patient Location: Accession/Order Number: [id number] Exam Date: 04/20/2023 09:10 Report Date: 04/20/2023 10:36 At the request of: GALINA PALMER Procedure: FL hip inj RT EXAMINATION: FL hip inj RT, FL guided needle placement HISTORY: Right Hip Degenerative Changes COMPARISON: No relevant comparison available. FLUOROSCOPY TIME: Fluoro time measures 1 minute and images were obtained. TECHNIQUE: A joint injection was performed in the usual sterile manner after obtaining informed consent. Standard level fluoroscopic mode of operation utilized. FINDINGS: JOINT: Right hip. NEEDLE: 22 gauge, 3.5 spinal needle. MEDICATION: 2cc buffered 1% lidocaine for subcutaneous anesthesia 2cc Omnipaque-300 iodinated contrast to visualize the joint space Mixture of Kenalog 40 mg, 0.5% Bupivacaine 2 mL and Omnipaque 300 10mL was injected into the joint space. TECHNIQUE: Anterior approach with prior localization of the femoral artery. A single stick was successful in gaining access to the joint space. CLINICAL: 5 out of 10 pain before the injection. 0 out of 10 pain following the injection COMPLICATIONS: None. OTHER: Negative. FL/FL hip inj RT IMPRESSION: Technically successful right hip therapeutic arthrogram Electronically authenticated by: HERMES MENDOZA Date: 04/20/2023 10:36
--- NOTE | 2023-04-20 09:00 | FL_ITS ---
[address] [address] Patient Name: KARINA CORMIER MRN: [id number] date: 1940 Sex: F Assigned Patient Location: [place] Current Patient Location: Accession/Order Number: [id number] Exam Date: 04/20/2023 09:10 Report Date: 04/20/2023 10:36 At the request of: GALINA PALMER Procedure: FL guided needle placement EXAMINATION: FL hip inj RT, FL guided needle placement HISTORY: Right Hip Degenerative Changes COMPARISON: No relevant comparison available. FLUOROSCOPY TIME: Fluoro time measures 1 minute and images were obtained. TECHNIQUE: A joint injection was performed in the usual sterile manner after obtaining informed consent. Standard level fluoroscopic mode of operation utilized. FINDINGS: JOINT: Right hip. NEEDLE: 22 gauge, 3.5 spinal needle. MEDICATION: 2cc buffered 1% lidocaine for subcutaneous anesthesia 2cc Omnipaque-300 iodinated contrast to visualize the joint space Mixture of Kenalog 40 mg, 0.5% Bupivacaine 2 mL and Omnipaque 300 10mL was injected into the joint space. TECHNIQUE: Anterior approach with prior localization of the femoral artery. A single stick was successful in gaining access to the joint space. CLINICAL: 5 out of 10 pain before the injection. 0 out of 10 pain following the injection COMPLICATIONS: None. OTHER: Negative. FL/FL guided needle placement IMPRESSION: Technically successful right hip therapeutic arthrogram Electronically authenticated by: HERMES MENDOZA Date: 04/20/2023 10:36
[2023-04-20] MEDS: LIDOCAINE HCL 10 ML, SODIUM BICARBONATE 1 MEQ INJ (09:55)
[2023-04-20] MEDS: BUPIVACAINE HCL 0.5% PF 50 MG/10 ML VIAL 2 ML INJ (09:55)
[2023-04-20] MEDS: TRIAMCINOLONE ACETONIDE 40 MG/ML VIAL INJ (09:55)
--- NOTE | 2023-04-20 10:42 | SUR.PREOP ---
04/08/23 Instructed pt and spouse on procedure, date, time, and prep. Instructed them to hold ASA until after procedure.
== END 2023-04-20 10:20 | disposition home or self-care (01) ==
LOC: FL 08:54
PROVIDERS: Radiology Diagnostic Radiology; PCP Family Medicine; Visit Provider Family Medicine
DX: M16.11 Unilateral primary osteoarthritis, right hip (principal)
CPT/HCPCS: 20610; 77002; Q9967

== ENCOUNTER 2023-04-27 07:31 | Outpatient (RCR) | payer MEDICARE, SELFPAY ==
[2023-04-27 10:59] VITALS: BP 142/87; PULSE 87; RESP 18; TEMP 37; O2SAT 96
[2023-04-27] MEDS: DENOSUMAB 60 MG/ML SYRINGE SUBQ (11:11)
--- NOTE | 2023-04-27 11:35 | PC.NURSE ---
1057 Arrival amblatory/walker with . Alert oriented, seated in chair 1. 1105 Labs reviewed (Cr and Ca+). Educated on increasing water intake for 24 hours. patient verbalizes understanding 1132 Released ambulatory, no s//s of reaction.
== END 2023-04-27 11:35 | disposition home or self-care (01) ==
LOC: INF 07:31
PROVIDERS: PCP Family Medicine; Visit Provider Family Medicine
DX: M48.062 Spinal stenosis, lumbar region with neurogenic claudication (principal); Z79.899 Other long term (current) drug therapy; M46.1 Sacroiliitis, not elsewhere classified; M47.816 Spondylosis without myelopathy or radiculopathy, lumbar region; M51.36 Other intervertebral disc degeneration, lumbar region; M81.0 Age-related osteoporosis without current pathological fracture
CPT/HCPCS: 96372; G0463; J0897

== ENCOUNTER 2023-04-27 12:52 | Outpatient (OUT) | payer MEDICARE, SELFPAY ==
--- NOTE | 2023-04-27 13:23 | P.CN_ITS ---
Consult Note: HPI Data of Consult Patient: known to practice within the last 3 years Requesting Physician: Vivian Meza NP Primary Care Provider: Luis Rogers MD Consult Narrative Reason for consult: procedure f/u Narrative: Alexa Delgado a pleasant 82 year old female presents for evaluation and management of chronic pain. Patient rating pain 4/10 today. Patient has found significant improvement in pain and functional ability with past procedures and current medication regimen. Pain still increases to moderate to severe with twis ting, pulling, pushing, walking, stairs, and reaching up. Pain decreased with lying down, heat, and medications. GAURANG 46% today. Denies side effects from current medication regimen. cc:: CC: Vivian Meza NP Review of Systems ROS Status of ROS 10 or more systems reviewed and unremark able except as noted in history and below Musculoskeletal Reports: back pain and joint pain PFSH PFSH Medical History Pelvic fracture ?S32.9XXA - Fracture of unspecified parts of lumbosacral spine and pelvis, initial encounter for closed fracture (ICD-10) TIA (transient ischemic attack) ?G45.9 - Transient cerebral ischemic attack, unspecified (ICD-10) Closed fracture of coccyx ?S32.2XXA - Fracture of coccyx, initial encounter for closed fracture (ICD- 10) Osteoarthritis ?M19.90 - Unspecified osteoarthritis, unspecified site (ICD-10) H/O pyelonephritis ?Z87.448 - Personal history of other diseases of urinary system (ICD-10) Syncope ?R55 - Syncope and collapse (ICD-10) Generalized weakness ?R53.1 - Weakness (ICD-10) Dizziness ?R42 - Dizziness and giddiness (ICD-10) Surgical History Pain management ?R52 - Pain, unspecified (ICD-10) H/O bladder repair surgery ?Z98.890 - Other specified postprocedural states (ICD-10) H/O breast surgery ?Z98.890 - Other specified postprocedural states (ICD-10) H/O knee surgery ?Z98.890 - Other specified postprocedural states (ICD-10) H/O foot surgery ?Z98.890 - Other specified postprocedural states (ICD-10) History of right knee joint replacement ?Z96.651 - Presence of right artificial knee joint (ICD-10) History of YAG laser capsulotomy of lens ?Z98.49 - Cataract extraction status, unspecified eye (ICD-10) Hx laparoscopic cholecystectomy ?Z90.49 - Acquired absence of other specified parts of digestive tract (ICD- 10) H/O: hysterectomy ?Z90.710 - Acquired absence of both cervix and uterus (ICD-10) History of arthroscopic knee surgery ?Z98.890 - Other specified postprocedural states (ICD-10) H/O discectomy ?Z98.890 - Other specified postprocedural states (ICD-10) H/O dilation and curettage ?Z98.890 - Other specified postprocedural states (ICD-10) History of appendectomy ?Z90.49 - Acquired absence of other specified parts of digestive tract (ICD- 10) Hx of tonsillectomy ?Z90.89 - Acquired absence of other organs (ICD-10) Social History Previous occupational history: Retired, , lives at home Meds Home Medications and Allergies Home Medications Medication Instructions Recorded Confirmed Type B complex with vitamin 1 cap PO DAILY 07/26/22 04/27/23 History A-jdfuzjefk-ezag capsule Buderer compound cream topical DAILY 07/26/22 History acetaminophen 500 mg tablet 1,000 mg PO BID pain 07/26/22 04/27/23 History (Tylenol Extra Strength) aspirin 81 mg tablet,delayed 81 mg PO DAILY 07/26/22 04/27/23 History release blue emu 1 g topical DAILY 07/26/22 04/27/23 History calcium carb-vit D3-minerals 600 1 tab PO DAILY 07/26/22 04/27/23 History mg calcium-400 unit tablet capsaicin 0.025 % topical patch 1 patch topical DAILY pain 07/26/22 04/27/23 History (Salonpas-Hot) citalopram 10 mg tablet 10 mg PO DAILY 07/26/22 04/27/23 History cyclobenzaprine 5 mg tablet 5 mg PO .morning muscle spasm 07/26/22 04/27/23 History diclofenac sodium 75 mg 75 mg PO Q12H 07/26/22 04/27/23 History tablet,delayed release fexofenadine 180 mg tablet 180 mg PO DAILY 07/26/22 04/27/23 History (Benita Allergy) flaxseed oil 1,000 mg capsule 1,000 mg PO DAILY 07/26/22 04/27/23 History glucosamine 750 yi-jqrddr-ucu 2-C 1 tab PO DAILY 07/26/22 04/27/23 History 30 mg-D3 1,000 unit-maida 1 mg tablet (Ykaaodljblf-Esljamaawes-VLF + vitD) isosorbide mononitrate 30 mg 30 mg PO DAILY 07/26/22 04/27/23 History tablet,extended release 24 hr levothyroxine 75 mcg capsule 75 mcg PO DAILY 07/26/22 04/27/23 History liothyronine 25 mcg tablet 25 mcg PO DAILY 07/26/22 04/27/23 History (Cytomel) melatonin 3 mg capsule 3 mg PO DAILY 07/26/22 04/27/23 History metoprolol succinate 50 mg 50 mg PO BID 07/26/22 04/27/23 History tablet,extended release 24 hr multivitamin 1 tab PO DAILY 07/26/22 04/27/23 History nitroglycerin 0.4 mg sublingual 0.4 mg sublingual Q5M PRN chest 07/26/22 04/27/23 History tablet pain meclizine 25 mg tablet 25 mg PO QID PRN dizzy #20 tabs 08/10/22 04/27/23 Rx hydrocodone 5 mg-acetaminophen 325 1 tab PO BID PRN pain #60 tabs 10/20/22 04/27/23 Rx mg tablet cyclobenzaprine 10 mg tablet 10 mg PO BEDTIME 04/20/23 04/27/23 History furosemide 40 mg tablet 40 mg PO DAILY 04/20/23 04/27/23 History memantine 21 mg capsule 21 mg PO Q24H 04/20/23 04/27/23 History sprinkle,extended release 24hr Allergies Allergy/AdvReac Type Severity Reaction Status Date / Time Penicillins Allergy Severe Hives Verified 04/20/23 10:30 codeine AdvReac Intermediate Dizziness Verified 04/20/23 10:30 fluconazole [From Diflucan] AdvReac Intermediate Verified 04/20/23 10:30 quinine [From Quinamm] AdvReac Mild Headache Verified 04/20/23 10:30 decongest multi-action AdvReac Mild Uncoded 04/20/23 10:30 Exam Constitutional Documenting provider has reviewed patient's vital signs: yes Common normals: no apparent distress, oriented x3, healthy appearing, alert and well nourished General appearance: cooperative HENMT Common normals: normocephalic, hearing grossly normal bilaterally and moist oral mucous membranes Head and scalp: normocephalic Eye Common normals: PERRL Pupil: PERRL Neck & C-Spine Common normals: full ROM General: normal visual inspection Chest Common normals: inspection of chest normal Respiratory Common normals: normal respiratory effort, no retractions and no use of accessory muscles Back & Pelvis Lumbar spine/lower back: ROM limited, pain with ROM and straight leg raise negative bilaterally Sacroiliac joints: SI joint(s) abnormal (mild pain with thigh thrust, fabers, gaenslens right, improved) Extremity Common normals: normal to inspection Right lower extremity: hip joint Other: no pain with internal and external rotation of right hip Neuro Common normals: oriented x3, CN's II-XII intact bilaterally, moves all extremities, no focal motor deficits, no sensory deficits noted and deep tendon reflexes 2+ bilaterally Sensorium/orientation: alert Gait (neuro): antalgic and assistive device used walker Motor exam: strength 5/5 throughout and no movement abnormalities noted Psych Common normals: mental status grossly normal, thought process normal, cooperative, affect normal, speech normal and activity/motor behavior normal Speech: normal speech Thought process: normal thought process Results Additional Findings Additional findings: I have checked an OARRS report on this patient today and there are no aberrancies noted in the prescribing history.?? A drug screen was completed and reviewed within the last year, and if there has not been a drug screen completed we ordered one today to monitor higher risk, state monitored pain medication use. As part of providing excellent, safe, comprehensive care, the following was completed at our patient's visit: 1. A medication reconciliation and review to ensure accurate knowledge of current/active medications, including asking our patients to inform us about any ftow-pwh-csorcwf medications or herbal remedies/nutritional supplements/alternative remedies. 2. A review to specifically ensure our patients have had annual screening for: elevated body mass index (BMI), tobacco use, screening for depression, and screening for unhealthy alcohol use. When screening is concerning, patients are provided with education and the specific recommendation to discuss the concerning health issue and treatment options with their primary care provider. Assessment and Plan Assessment and Plan (1) Lumbar stenosis with neurogenic claudication: (2) Chronic, continuous use of opioids: Assessment and Plan: I feel these medications are improving the patient's quality of life and allow them to tolerate activities of daily living as well as participate in recreational activity.? The patient does not report intolerable side effects. The patient is NOT opioid naive and non-pharmacologic and non-opioid treatment has failed to significantly relieve the patient's pain and improve functionality. The patient has a diagnosis that is related to a somatic or visceral pain etiology. ? ?? I reviewed with the patient the potential risks and side effects with the use of? opioid medications including but not limited to respiratory depression,? sedation, and even . I verified the patient has access to naloxone should? these effects occur. I advised the patient to avoid the use of any other? sedation substances including alcohol, THC, and benzodiazepines while? taking opioid medications due to the risk of compounding side effects and? detrimental outcomes. I reviewed the [employer]CH[employer]PER, pain treatment agreement, urine? drug screen, and opioid start talking forms. The patient was advised to let? their family know they had Naloxone in case they would need to administer? the medication.? ?? A drug screen was completed within the last year, and no aberrancies were noted regarding their use of controlled substances. The patient understands they are subject to the terms and conditions of the pain contract that they have signed. ? ?? I have checked an OARRS report on this patient today and there are no aberrancies noted in the prescribing history.? (3) Sacroiliitis: (4) Lumbar degenerative disc disease: (5) Lumbar spondylosis: Plan decrease diclofenac 50mg BID PRN, risks vs benefits discussed. we reviewed [employer] risks associated with NSAIDs and with patients hx I would advise against continuing however patient finds improvement in pain with diclofenac, was previously 75mg BID PRN continue other medications, finding functional improvement without side effects repeat right L4-5 L5-S1 TFESI under fluoroscopy as previous injection provided >50% improvement greater than 3 months repeat nerve block of right SIJ under fluoroscopy as previous injection provided >50% improvement greater than 3 months f/u 2 weeks after injections completed, 3 months for medication management
== END 2023-04-27 12:53 | disposition home or self-care (01) ==
LOC: PM 12:52
PROVIDERS: PCP Family Medicine; Visit Provider Nurse Practitioner
DX: M48.062 Spinal stenosis, lumbar region with neurogenic claudication (principal); Z79.899 Other long term (current) drug therapy; M46.1 Sacroiliitis, not elsewhere classified; M47.816 Spondylosis without myelopathy or radiculopathy, lumbar region; M51.36 Other intervertebral disc degeneration, lumbar region
CPT/HCPCS: G0463

== ENCOUNTER 2023-05-03 12:54 | Outpatient (OUT) | payer MEDICARE, SELFPAY ==
[2023-05-03 13:08] LABS: Hemoglobin 11.4 g/dL (12.0-16.0)
[2023-05-03 13:32] LABS: ABG PCO2 43.7 mmHg (35.0-45.0); pH ABG 7.422 (7.350-7.450)
[2023-05-03 13:33] LABS: Allen Test POSITIVE (POSITIVE); HCO3 ABG 28.4 mmol/L (22.0-26.0); O2 Mode RA; Oxygen Saturation ABG 96.4 %; PO2 ABG 76.2 mmHg (80.0-100.0)
[2023-05-03 13:34] LABS: Puncture Site RR
--- NOTE | 2023-05-03 14:44 | RT_ITS ---
[facility] Test Date: 2023-05-03 Pat Name: KARINA CORMIER Department: Room: - Gender: Female Erp Technical Lead: Chris Eng RRT : 1940 Requested By: Devyn Castañeda Order Number: [id number] Reading MD: Devyn Castañeda Interpretive Statements Pulmonary function testing was completed according to ATS criteria. Findings were considered accurate and reproducible, with exception of DLCO which did not meet ATS standards. Both pre- and post-bronchodilator values utilized for spirometry. Spirometry (based on pre-bronchodilator values): -FEV1/FVC: Normal @ 76% -FEV1: Normal @ 128% -FVC: Normal @ 124% -There is no significant bronchodilator response. -MVV: Normal @ 80% -MIP: Normal at 113% -MEP: Very severely reduced at 19% Lung volumes by plethysmography (based on pre-bronchodilator values): -RV: Increased @ 133% -TLC: Increased @ 121% Diffusion capacity: -DLCO: Mild reduction @ 75% when corrected for Hb 11.4g/dL Flow-volume loop: -Normal variant 'knee shape' Impressions: -Technically normal spirometry, but appears to trend towards mild obstruction. MVV & MIP or normal, but MEP is severely reduced - may indicate some respiratory muscle weakness. Normal lung volumes. Mild diffusion impairment which may be due to not meeting ATS standards. Clinical correlation required. Clinical correlation required. Electronically Signed On 05-04-2023 13:09:37 EDT by Devyn Castañeda
[2023-05-03] MEDS: ALBUTEROL SULFATE 2.5 MG/3 ML VIAL NEB IH (14:47)
== END 2023-05-03 12:55 | disposition home or self-care (01) ==
LOC: CARD 12:55
PROVIDERS: PCP Family Medicine; Visit Provider Internal Medicine
DX: J96.11 Chronic respiratory failure with hypoxia (principal); R05.9 Cough, unspecified
CPT/HCPCS: 36415; 36600; 82805; 85018; 94060; 94726; 94729

== ENCOUNTER 2023-05-23 10:05 | Day surgery (SDC) | payer MEDICARE, SELFPAY ==
--- OUTSIDE RECORDS SUMMARY | 2023-05-23 10:14 | XMS_ITS | CCD ---
Author Organization [facility] Care Team Providers Care 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 Name Role Phone PHYSICIAN, DEFAULT Unavailable Unavailable PHYSICIAN, DEFAULT Unavailable Unavailable Haley Matos DO, George Cajetan Unavailable Galina Rogers MD Primary Care Provider Lakshmipathy, Narendranath Unavailable Haley Matos DO, George Cajetan Unavailable ESTELA ., DR MOJICA Primary Care Unavailable HOY ., DR MOJICA Attending Unavailable HOY ., DR MOJICA Consulting Unavailable HOY ., DR MOJICA Admitting Unavailable LAKSHMIPATHY ., NARROSA Consulting Laura vailable LAKSHMIPATHY ., LUCYATH Admitting Laura vailable LAKSHMIPATHY ., PORSHA Attending Laura vailable HOAshlie ., DR MOJICA Primary Care Unavailable BECKWITH ., DR NIKO Austin Consulting Unavailable BECKWITH ., DR NIKO Austin Admitting Unavailable BECKWITH ., DR NIKO Austin Attending Unavailable HOY ., DR MOJICA Primary Care Unavailable NATI FARAH Consulting Unavailable HOY ., DR MOJICA Primary Care Unavailable HOY ., DR MOJICA Attending Unavailable HOY ., DR MOJICA Consulting Unavailable HOY ., DR MOJICA Admitting Unavailable HOLDERNESS, DR HERMES Jean Baptiste Consulting Unavailable HOY ., DR MOJICA Primary Care Unavailable HOY ., DR MOJICA Attending Unavailable HOY ., DR MOJICA Consulting Unavailable HOY ., DR MOJICA Admitting Unavailable HOY ., DR MOJICA Primary Care Unavailable NOEMI HAWK Consulting Unavailable BECKWITH ., DR NIKO Austin Attending Unavailable BECKWITH ., DR NIKO Austin Admitting Unavailable LAKSHMIPATHY ., NARROSA Consulting Laura vailable LAKSHMIPATHY ., NARENDLAYATH Admitting Laura vailable LAKSHMIPATHY ., NARROSA Attending Laura vailable HOY ., DR MOJICA [...] ., NARENDRANATH Admitting Laura vailable LAKSHMIPATHY ., NARENDLAYATH Attending Laura vailable BRIDGER PAIZ Consulting Unavailable HOY ., DR MOJICA Primary Care Unavailable LAKSHMIPATHY ., PORSHA Consulting Laura vailable LAKSHMIPATHY ., NARENDLAYATH Admitting Laura vailable LAKSHMIPATHY ., NARDALLASATH Attending Laura vailable LAKSHMIPATHY ., PORSHA Consulting Laura vailable HOY ., DR MOJICA [...] DR PEPE De La Rosa Attending Unavailabl anthony CANSECOECK, DR PEPE De La Rosa Admitting Unavailabl e ESTELA ., DR MOJICA Primary Care Unavailable EMILY NAVARRETE Consulting Unavailable MELO ., ROGE Admitting Unavailable MELO ., ROGE Attending Unavailable DORY, DR KRANTHI Gaona Consulting Unavailable ESTELA ., DR MOJICA Primary Care Unavailable MELO ., ROGE Consulting Unavailable BECKWITH ., DR NIKO Austin Attending Unavailable BECKWITH ., DR NIKO Austin Consulting Unavailable BECKWITH ., DR NIKO Austin Admitting Unavailable HOY ., DR MOJICA Primary Care Unavailable MELO ., ROGE Admitting Unavailable MELO ., ROGE Attending Unavailable ESTELA ., DR MJOICA Primary Care Unavailable DORY, DR KRANTHI Gaona Consulting Unavailable MELO ., ROGE Consulting Unavailable FAWWAD, SEGURA H Admitting Unavailable FAWCHANELL, SEGURA H Attending Unavailable HOAshlie ., DR MOJICA Primary Care Unavailable SAMSA ., BALTAZAR Consulting Unavailable MELO ., ROGE Consulting Unavailable FAWWAD, SEGURA H Consulting Unavailable LINARES JARET Consulting Unavailable AA, AA Consulting Unavailable HOY ., DR MOJICA Primary Care Unavailable HOY ., DR MOJICA Attending Unavailable HOY ., DR MOJICA Admitting Unavailable HOY ., DR MOJICA Primary Care Unavailable HOY ., DR MOJICA Admitting Unavailable HOY ., DR MOJICA Attending Unavailable HOY ., DR MOJICA Consulting Unavailable HOLDERNESS, DR HERMES Jean Baptiste Consulting Unavailable BECKWITH ., DR NIKO Austin Attending Unavailable BECKWITH ., DR NIKO Austin Admitting Unavailable ESTELLA .NOEMI Consulting Unavailable HOY ., DR MOJICA Primary Care Unavailable Haley Matos DO, George Cajetan Unavailable Galina Rogers MD Unavailable GALINA ROGERS Primary Care Unavailable CAROLYN VANEGAS Attending Unavailable MARTY DOZIER Attending Unavailable Ishmael MEANS, Andrius Adams Attending Unavailable Ishmael MEANS, Andrius Vytautjemma Attending Unavailable Ishmael MEANS, Andrius Vytautjemma Attending Unavailable Ishmael MEANS, Andrius Adams Attending Unavailable Allergies Allergy Classification Reported Allergen(s) Allergy Type Date of Onset Reaction(s) Facility (4 sources) Codeine; Translations: [CODEINE] Drug Allergy 3 Unknown [facility] (4 sources) Penicillins; Translations: [PENICILLINS] Drug Allergy 3 Unknown [facility] (4 sources) pregabalin; Translations: [PREGABALIN] Drug Allergy 3 Intolerance [facility] Work Phone: (4 sources) Propoxyphene; Translations: [PROPOXYPHENE] Drug Allergy 3 Rash, Unknown [facility] (4 sources) quiNINE; Translations: [QUINAMM] Drug Allergy 3 GI Upset [facility] (5 sources) Decongest Multi-Action; Translations: [Decongest Multi-Action] Drug Allergy 3 Other: See Comments [facility] (1 source) Acetaminophen / HYDROcodone Drug Allergy [facility] Rep[facility] (2 sources) Codeine Drug Allergy 3 [facility] (1 source) Fluconazole Drug Allergy [facility] (2 sources) Penicillins Drug allergy (disorder) 3 [facility] (1 source) pregabalin Drug Allergy [facility] (2 sources) Propoxyphene Drug Allergy [facility] (1 source) quiNINE Drug Allergy [facility] Medications Completed/Discontinued Medications Medication Drug [...] above: Take by mouth twice daily. capsaicin 0.73257 mg/mg medicated patch (3 sources) Capsaicin (SALONPAS-HOT) [...] Onset: 11-13-2021 Episodic Other aftercare (1 source) intermediate card tender (current) use of aspirin; Translations: [CARE HOME CURRENT USE OF ASPIRIN] Onset: 04-06-2022 Episodic Other aftercare (1 source) Other snf (current) drug therapy; Translations: [OTH CARE HOME CURRENT DRUG THERAPY] Onset: 04-06-2022 Episodic Other [...] Name Value Interpretation Reference Range Facility [facility] 09-21-2022 CNOV Office Visit ([facility] ) ALEXA DELGADO ([id number]) 1940 F Date Time Provider Department 09/21/22 1:00 PM CAROLYN VANEGAS [facility] During your visit today, we recorded the [...] Percentile 2 (more content not included)... Normal [facility] XR LSPINE 2_3 VIEWSon 2022 XR LSPINE [...] by: HERMES MENDOZA Date: 2022-07-16 11:34 Normal [facility] CNOVon 05-14-2022 CNOV Office Visit ([facility] ) ALEXA DELGADO ([id number]) 1940 F Date Time Provider Department 05/14/22 2:30 PM MARTY DOZIER During your visit today, we recorded the following information about you: Pulse Blood pressure Weight Height 72/minute 158/87 76.4 kg 1.524 m Marty Dozier DO 05/15/2022 10:02 PM Signed [facility] - Medical Spine Initial [...] Ratio: R>L low back Current Treatment: Medications Sheridan 5-325 mg BID - helps Diclofenac 75 [...] but still has pain -01/28/22 Noemi Sequeira VALUE STREAM COACH: BL Lumbar erector spinae TPI (0.125% Marcaine, [...] ongoing as of 04/17/21 -03/08/21 Noemi Sequeira VALUE STREAM COACH: Left rhomboid TPI (0.125% Marcaine, 40 mg Kenalog) -02/03/21 LESI - moderate relief for 4 days Prior spine surgery: -2006 L4-5 Discectomy Previously treated by: -[facility], previously Dr. Niko Beckwith who is leaving the practice and going forward treatment will be with Dr. Porsha Mario. Last visit 05/13/22 Dr. 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 I could not appreciate any facet loading pain clinically on examination today. She has an evaluation at the [facility] tomorrow at the Spine Center. RECOMMENDATIONS: We will see the pat (more content not included)... Normal [facility] CULTURE URINEon 04-05-2022 CULTURE URINE Culture Observations : LIGHT GROWTH OF MIXED GENITAL ALANIS. NO POTENTIAL PATHOGENS SEEN. Normal [facility] Comment on above: Performed By: #### U RCX ####[facility] [address] [place], [place] [address]Eg. Grace Abdul UA RANDOM W/MICROSCOPICon BACTERIA NONE SEEN Normal NONE SEEN [facility] Comment on above: Performed By: #### U AMIC ####[facility] W[address] [place], [place] [address]Dr. Grace Abdul Bilirubin Ql (U) Negative Normal NEGATIVE The [facility] Comment on above: Performed By: #### U AMIC ####[facility] [address] [place], [place] [address]Dr. Grace Abdul CAST NONE SEEN Normal NONE SEEN [facility] Comment on above: Performed By: #### U AMIC ####[facility] [address] [place], [place] [address]Dr. Grace Abdul Clarity (U) CLEAR Normal CLEAR [facility] Comment on above: Performed By: #### U AMIC ####[facility] Inpcrw[address] [place], [place] [address]Dr. Grace Abdul Color (U) YELLOW Normal YELLOW [facility] Comment on above: Performed By: #### U AMIC ####[facility] Uibaxfupwu[address] [place], [place] [address]Dr. Grace Abdul Crystals LM Nom (Urine sed) NONE SEEN Normal NONE SEEN [facility] Comment on above: Performed By: #### U AMIC ####[facility] J[address]zss[address] [place], [place] [address]Dr. Grace Abdul Epithelial cells LM Ql (Urine sed) RARE Normal NONE SEEN /RARE [facility] Comment on above: Performed By: #### U AMIC ####[facility] Gnxiyr[address] [place], [place] [address]Dr. Grace Abdul Glucose Ql (U) Negative Normal NEGATIVE [facility] Comment on above: Performed By: #### U AMIC ####[facility] [address] [place], [place] [address]Dr. Grace Abdul Hemoglobin Ql (U) MODERATE Abnormal NEGATIVE [facility] Comment on above: Performed By: #### U AMIC ####[facility] Otm[address] [place], [place] [address]Dr. Grace Abdul Ketones Ql (U) TRACE Abnormal NEGATIVE [facility] Comment on above: Performed By: #### U AMIC ####[facility] [address] [place], [place] [address]Dr. Grace Abdul LEUKOCYTES TRACE Abnormal NEGATIVE [facility] Comment on above: Performed By: #### U AMIC ####[facility] [address] [place] [address]Dr. Grace Abdul MUCOUS NONE SEEN Normal NONE SEEN [facility] Comment on above: Performed By: #### U AMIC ####[facility] [address] [place] [address]Dr. Grace Abdul Nitrite Ql (U) Negative Normal NEGATIVE [facility] Comment on above: Performed By: #### U AMIC ####[facility] [address] [place] [address]Dr. Graec Abdul pH (U) 5.0 [pH] Normal 5-9 [facility] Comment on above: Performed By: #### U AMIC ####[facility] [address] [place] [address]Dr. Grace Abdul RBC 0-2 Normal 0-2 [facility] Comment on above: Performed By: #### U AMIC ####[facility] L[address]fe[address] [place], [place] [address]Dr. Grace Abdul SPEC GRAVITY 1.015 Normal 1.005-<=1.[address] [facility] Comment on above: Performed By: #### U AMIC ####[facility] [address] [place] [address]Dr. Grace Abdul UA PROTEIN Negative Normal NEGATIVE/ TRACE [facility] Comment on above: Performed By: #### U AMIC ####[facility] [address] [place], [place] [address]Dr. Grace Abdul Urobilinogen Qn (U) 0.2 {Ashley'U}/dL Normal 0.2 - 1. 0 [facility] Comment on above: Performed By: #### U AMIC ####[facility] [address]zqzwkmn[address] [place], [place] [address]Dr. Grace Abdul WBC 0-2 Abnormal NONE SEEN [facility] Comment on above: Performed By: #### U AMIC ####[facility] [address]zftvsa[address] [place], [place] [address]Dr. Grace Abdul CBC AUTO DIFFon 04-04-2022 BASO # 0.0 103/ul Normal 0.0-0.1 [facility] Comment on above: Performed By: #### C BC ####[facility] [address] [place] [address]Dr. Grace Abdul Basophils/100 WBC (Bld) 0.4 % Normal 0.2-2.0 [facility] Comment on above: Performed By: #### C BC ####[facility] [address] [place] [address]Dr. Grace Abdul EO # 0.1 103/ul Normal 0.0-0.7 [facility] Comment on above: Performed By: #### C BC ####[facility] X[address] [place], [place] [address]Dr. Grace Franko Eosinophils/100 WBC (Bld) 1.3 % Normal 0.9-7.0 [facility] Comment on above: Performed By: #### C BC ####[facility] Q[address]vhy[address]qs[address] [place], [place] [address]Dr. Grace Abdul Erythrocyte distribution width (RBC) [Ratio] 13.7 % Normal 11.0-15.0 [facility] Comment on above: Performed By: #### C BC ####[facility] [address] [place], [place] [address]Dr. Grace Abdul Hematocrit (Bld) [Volume fraction] 37.2 % Normal 36.0-48.0 [facility] Comment on above: Performed By: #### C BC ####[facility] L[address]so[address] [place], [place] [address]Dr. Grace Abdul Hemoglobin (Bld) [Mass/Vol] 12.4 g/dL Normal 12.0-16.0 [facility] Comment on above: Performed By: #### C BC ####[facility] [address] [place], [place] [address]Dr. Grace Abdul IG # 0.02 10e3/ul Normal 0.00-0.03 [facility] Comment on above: Performed By: #### C BC ####[facility] [address] [place] [id number]. Grace Abdul IG % 0.4 % Normal 0.0-0.5 [facility] Comment on above: Performed By: #### C BC ####[facility] [address]ix[address] [place] [address]Dr. Grace Abdul LYMPH # 0.8 103/ul Critically low 1.2-3.8 [facility] Comment on above: Performed By: #### C BC ####[facility] [address] [place] [address]Dr. Grace Franko Lymphocytes/100 WBC (Bld) 13.9 % Critically low 20.5-60.0 [facility] Comment on above: Performed By: #### C BC ####[facility] [address] [place] [address]Dr. Grace Franko MANUAL DIFF REQ NO Normal [facility] Comment on above: Performed By: #### C BC ####[facility] [address] [place] [address]Dr. Grace Abdul MCH (RBC) [Entitic mass] 30.5 pg Normal 26.7-34.0 [facility] Comment on above: Performed By: #### C BC ####[facility] [address] [place] [address]Dr. Grace Abdul MCHC (RBC) [Mass/Vol] 33.3 g/dL Normal 29.9-35.2 [facility] Comment on above: Performed By: #### C BC ####[facility] [address] [place] [id number]. Grace Abdul MCV (RBC) [Entitic vol] 91.4 fL Normal 81.0-99.0 [facility] Comment on above: Performed By: #### C BC ####[facility] [address] [place], [place] [address]Dr. Grace Franko MONO # 0.7 103/ul Normal 0.3-0.8 [facility] Comment on above: Performed By: #### C BC ####[facility] [address] [place] [id number]. Grace Abdul Monocytes/100 WBC (Bld) 13.5 % Critically high 1.7-12.0 [facility] Comment on above: Performed By: #### C BC ####[facility] [address] [place] [id number]. Grace Abdul NEUT # 3.8 103/ul Normal 1.4-6.5 [facility] Comment on above: Performed By: #### C BC ####[facility] [address] [place] [address]Dr. Grace Abdul Neutrophils/100 WBC (Bld) 70.5 % Normal 43.0-75.0 [facility] Comment on above: Performed By: #### C BC ####[facility] [address] [place] [address]Dr. Grace Abdul Platelet mean volume (Bld) [Entitic vol] 9.0 fL Critically low 9.5-13.5 [facility] Comment on above: Performed By: #### C BC ####[facility] [address] [place] [id number]. Grace Abdul PLT 283 103/ul Normal 150-450 [facility] Comment on above: Performed By: #### C BC ####[facility] [address] [place] [id number]. Grace Abdul RBC 4.07 106/ul Critically low 4.20-5.[address] [facility] Comment on above: Performed By: #### C BC ####[facility] Hse[address]qksft[address] [place] [id number]. Grace Abdul WBC 5.4 103/ul Normal 4.0-11.0 [facility] Comment on above: Performed By: #### C BC ####[facility] T[address] [place], [place] [address]Dr. Grace Abdul CT ABD/PELV W CONon 04-04-19 [...] EMILY NAVARRETE Date: 2022-04-04 16:59 Normal [facility] ER URINE PROFILEon 3 Bilirubin Ql (U) Negative Normal NEGATIVE [facility] Comment on above: Performed By: #### ROBERT FELDER ####[facility] [address] [place] [address]Dr. Grace Abdul Clarity (U) CLEAR Normal CLEAR [facility] Comment on above: Performed By: #### ROBERT FELDER ####[facility] [address] [place] [id number]. Grace Abdul Color (U) LT. YELLOW Normal YELLOW [facility] Comment on above: Performed By: #### ROBERT FELDER ####[facility] [address] [place] [address]Dr. Grace Abdul ERUAHD A micrscopic examination will be performed if indicated. Normal [facility] Comment on above: Performed By: #### ROBERT FELDER ####[facility] [address]fioc[address] [place] [address]Dr. Grace Abdul Glucose Ql (U) Negative Normal NEGATIVE [facility] Comment on above: Performed By: #### ROBERT FELDER ####[facility] [address]zbj[address] [place], [place] [address]Dr. Grace Abdul Hemoglobin Ql (U) SMALL Abnormal NEGATIVE [facility] Comment on above: Performed By: #### ROBERT FELDER ####[facility] Gnnxsnpucr[address] [place], [place] [address]Dr. Grace Abdul Ketones Ql (U) Negative Normal NEGATIVE [facility] Comment on above: Performed By: #### ROBERT FELDER ####[facility] Qtfofycqis[address] [place], [place] [address]Dr. Grace Abdul LEUKOCYTES TRACE Abnormal NEGATIVE [facility] Comment on above: Performed By: #### ROBERT FELDER ####[facility] [address] [place], [place] [address]Dr. Grace Abdul Nitrite Ql (U) Negative Normal NEGATIVE [facility] Comment on above: Performed By: #### ROBERT FELDER ####[facility] [address]mtb[address] [place], [place] [address]Dr. Grace Abdul pH (U) 7.5 [pH] Normal 5-9 [facility] Comment on above: Performed By: #### ROBERT FELDER ####[facility] Jinc[address] [place], [place] [address]Dr. Grace Abdul SPEC GRAVITY 1.005 Normal 1.005-<=1.[address] [facility] Comment on above: Performed By: #### ROBERT FELDER ####[facility] [address]rwzohs[address] [place], [place] [address]Dr. Grace Abdul UA PROTEIN Negative Normal NEGATIVE/ TRACE [facility] Comment on above: Performed By: #### ROBERT FELDER ####[facility] [address] [place] [address]Dr. Grace Abdul UR MICRO IND INDICATED Normal [facility] Comment on above: Performed By: #### ROBERT FELDER ####[facility] [address]mqyw[address] [place] [address]Dr. Grace Abdul Urobilinogen Qn (U) 0.2 {Ashley'U}/dL Normal 0.2 - 1. 0 [facility] Comment on above: Performed By: #### ROBERT FELDER ####[facility] [address] [place] [address]DrLisette Abdul LIPASEon 04-04-2022 Lipase [Catalytic activity/Vol] 115.0 U/L Normal 73.0-393.0 [facility] Comment on above: Performed By: #### C JOETBZaria #### [facility] [address] [place] [address] Dr. Grace Abdul PROF 14(COMP METB)on 023 Albumin [Mass/Vol] 3.6 g/dL Normal 3.4-5.[address] [facility] Comment on above: Performed By: #### C JOETBH #### [facility] [address] [place] [address] Dr. Grace Abdul Albumin/Globulin [Mass ratio] 1.1 {ratio} Normal [facility] Comment on above: Performed By: #### C VDTBH #### [facility] [address] [place] [address] Dr. Grace bAdul ALP [Catalytic activity/Vol] 74 U/L Normal 46-116 [facility] Comment on above: Performed By: #### C VDTBH #### [facility] [address] [place] [address] Dr. Grace Abdul ALT [Catalytic activity/Vol] 23 U/L Normal 14-59 [facility] Comment on above: Performed By: #### C VDTBH #### [facility] [address] [place] [address] [address] Grace Abdul Anion gap [Moles/Vol] 12.1 mmol/L Normal [facility] Comment on above: Performed By: #### C VDTBH #### [facility] [address] [address] [address] Grace Abdul AST [Catalytic activity/Vol] 21 U/L Normal 15-37 [facility] Comment on above: Performed By: #### C VDTBH #### [facility] [address] [place] [address] [address] Grace Abdul Bilirubin [Mass/Vol] 0.2 mg/dL Normal 0.2-1.0 [facility] Comment on above: Performed By: #### C VDTBH #### [facility] [address] [place] [address] Dr. Grace Abdul Calcium [Mass/Vol] 9.3 mg/dL Normal 8.5-10.[address] [facility] Comment on above: Performed By: #### C VDTBH #### [facility] [address] [address] [address] Grace Abdul Chloride [Moles/Vol] 99 mmol/L Normal 98-107 [facility] Comment on above: Performed By: #### C VDTBH #### [facility] [address] [place] [address] Dr. Grace Abdul CO2 [Moles/Vol] 31.2 mmol/L Normal 21.0-32.0 [facility] Comment on above: Performed By: #### C VDTBH #### [facility] [address] [address] [address] Grace Abdul Creatinine [Mass/Vol] 1.22 mg/dL Critically high 0.55-1.02 [facility] Comment on above: Performed By: #### C VDTBH #### [facility] [address] [place] [address] Dr. Grace Abdul EGFR-AF QATARI 51 mL/min/1.73m2 Critically low >=60 [facility] Comment on above: Performed By: #### C VDTBH #### [facility] [address] [address] [address] Grace Abdul EGFR-NON AF QATARI 42 mL/min/1.73m2 Critically low >=60 [facility] Comment on above: Performed By: #### C VDTBH #### [facility] [address] [address] [address] Grace Abdul Globulin (S) [Mass/Vol] 3.3 g/dL Normal [facility] Comment on above: Performed By: #### C VDTBH #### [facility] [address] [address] [address] Grace Abdul Glucose [Mass/Vol] 115 mg/dL Critically high 74-106 [facility] Comment on above: Performed By: #### C VDTBH #### [facility] [address] [place] [address] Dr. Grace Abdul Potassium [Moles/Vol] 3.3 mmol/L Critically low 3.5-5.1 [facility] Comment on above: Performed By: #### C VDTBH #### [facility] [address] [address] [address] Grace Abdul Protein [Mass/Vol] 6.9 g/dL Normal 6.4-8.[address] [facility] Comment on above: Performed By: #### C VDTBH #### [facility] [address] [address] [address] Grace Abdul Sodium [Moles/Vol] 139 mmol/L Normal 136-[address] [facility] Comment on above: Performed By: #### C VDTBH #### [facility] [address] [address] [address] Grace Abdul Urea nitrogen [Mass/Vol] 23.0 mg/dL Critically high 7.0-18.0 [facility] Comment on above: Performed By: #### C VDTBH #### [facility] [address] [address] [address] Grace Abdul Urea nitrogen/Creatinine [Mass ratio] 18.9 mg/mg Normal [facility] Comment on above: Performed By: #### C VDTBH #### [facility] [address] [address] [address] Grace Abdul URINE MICROSCOPIC ONLYon BACTERIA NONE SEEN Normal NONE SEEN [facility] Comment on above: Performed By: #### GINA FELDERRO ####[facility] [address] [address]Dr. Grace Abdul Bacteria identified Cx Nom (U) NOT INDICATED Normal [facility] Comment on above: Performed By: #### Anthony ELLISON UMICRO ####[facility] [address] [address]Dr. Grace Abdul CAST NONE SEEN Normal NONE SEEN [facility] Comment on above: Performed By: #### GINA FELDERRO ####[facility] [address] [address]Dr. Grace Abdul Crystals LM Nom (Urine sed) NONE SEEN Normal NONE SEEN [facility] Comment on above: Performed By: #### Anthony ELLISON UMICRO ####[facility] [address] [address]Dr. Grace Abdul Epithelial cells LM Ql (Urine sed) RARE Normal NONE SEEN /RARE [facility] Comment on above: Performed By: #### Anthony ELLISON UMICRO ####[facility] [address] [address]Dr. Grace Abdul MUCOUS NONE SEEN Normal NONE SEEN [facility] Comment on above: Performed By: #### GINA FELDERRO ####[facility] [address] [address]Dr. Grace Abdul RBC 0-2 Normal 0-2 [facility] Comment on above: Performed By: #### GINA FELDERRO ####[facility] [address] [place], [place] [address]Dr. Grace Abdul WBC 0-2 Abnormal NONE SEEN [facility] Comment on above: Performed By: #### GINA FELDERRO ####[facility] [address] [place], [place] [address]DrLisette Abdul BNPon 12-11-2021 Natriuretic peptide B (Bld) [Mass/Vol] 665.0 pg/mL Normal <=1,800.0 [facility] Comment on above: Performed By: #### B MP #### [facility] [address] [place], [place] [address] Dr. Grace Abdul CBC AUTO DIFFon 12-11-2021 BASO # 0.0 103/ul Normal 0.0-0.1 [facility] Comment on above: Performed By: #### C BC ####[facility] [address] [address]DrLisette Abdul Basophils/100 WBC (Bld) 0.5 % Normal 0.2-2.0 [facility] Comment on above: Performed By: #### C BC ####[facility] [address] [address]DrLisette Abdul EO # 0.1 103/ul Normal 0.0-0.7 [facility] Comment on above: Performed By: #### C BC ####[facility] [address] [address]Dr. Grace Abdul Eosinophils/100 WBC (Bld) 1.9 % Normal 0.9-7.0 [facility] Comment on above: Performed By: #### C BC ####[facility] [address] [address]DrLisette Abdul Erythrocyte distribution width (RBC) [Ratio] 13.4 % Normal 11.0-15.0 [facility] Comment on above: Performed By: #### C BC ####[facility] [address] [address]Dr. Grace Abdul Hematocrit (Bld) [Volume fraction] 36.2 % Normal 36.0-48.0 [facility] Comment on above: Performed By: #### C BC ####[facility] [address] [place], [place] [address]DrLisette Abdul Hemoglobin (Bld) [Mass/Vol] 11.9 g/dL Critically low 12.0-16.0 [facility] Comment on above: Performed By: #### C BC ####[facility] [address] [id number]. Grace Abdul IG # 0.01 10e3/ul Normal 0.00-0.03 [facility] Comment on above: Performed By: #### C BC ####[facility] [address] [id number]. Grace Abdul IG % 0.2 % Normal 0.0-0.5 [facility] Comment on above: Performed By: #### C BC ####[facility] [address] [address]Dr. Grace Abdul LYMPH # 0.5 103/ul Critically low 1.2-3.8 [facility] Comment on above: Performed By: #### C BC ####[facility] [address] [address]Dr. Grace Abdul Lymphocytes/100 WBC (Bld) 11.5 % Critically low 20.5-60.0 [facility] Comment on above: Performed By: #### C BC ####[facility] [address] [address]Dr. Grace Abdul MANUAL DIFF REQ NO Normal [facility] Comment on above: Performed By: #### C BC ####[facility] [address] [id number]. Grace Abdul MCH (RBC) [Entitic mass] 31.6 pg Normal 26.7-34.0 [facility] Comment on above: Performed By: #### C BC ####[facility] [address] [id number]. Benitalee ann Abdul MCHC (RBC) [Mass/Vol] 32.9 g/dL Normal 29.9-35.2 [facility] Comment on above: Performed By: #### C BC ####[facility] [address] [id number]. Grace Abdul MCV (RBC) [Entitic vol] 96.0 fL Normal 81.0-99.0 [facility] Comment on above: Performed By: #### C BC ####[facility] [address] [id number]. Grace Abdul MONO # 0.6 103/ul Normal 0.3-0.8 [facility] Comment on above: Performed By: #### C BC ####[facility] [address] [id number]. Grace Abdul Monocytes/100 WBC (Bld) 14.4 % Critically high 1.7-12.0 [facility] Comment on above: Performed By: #### C BC ####[facility] [address] [id number]. Grace Abdul NEUT # 3.0 103/ul Normal 1.4-6.5 [facility] Comment on above: Performed By: #### C BC ####[facility] [address] [id number]. Grace Abdul Neutrophils/100 WBC (Bld) 71.5 % Normal 43.0-75.0 [facility] Comment on above: Performed By: #### C BC ####[facility] [address] [id number]. Grace Abdul Platelet mean volume (Bld) [Entitic vol] 9.2 fL Critically low 9.5-13.5 [facility] Comment on above: Performed By: #### C BC ####[facility] [address] [id number]. Grace Abdul PLT 290 103/ul Normal 150-450 [facility] Comment on above: Performed By: #### C BC ####[facility] [address] [id number]. Grace Abdul RBC 3.77 106/ul Critically low 4.20-5.[address] [facility] Comment on above: Performed By: #### C BC ####[facility] [address] [phone]. Grace Abdul WBC 4.2 103/ul Normal 4.0-11.0 [facility] Comment on above: Performed By: #### C BC ####[facility] [address] [phone] Abdul FREE THYROXINE INDEX T7on FTI 2.63 Normal 1.30-4.50 [facility] Comment on above: Performed By: #### B MP #### [facility] [address] [address] [address] Grace Adbul T3U 35.0 % Normal 30.0-39.0 [facility] Comment on above: Performed By: #### B MP #### [facility] [address] [address] [address] Grace Abdul T4 [Mass/Vol] 7.50 ug/dL Normal 4.80-13.90 [facility] Comment on above: Performed By: #### B MP #### [facility] [address] [address] [address] Grace Abdul GLYCOHEMOGLOBIN A1Con 2021 ADA RECOMMENDATION SEE BELOW Normal [facility] Comment on above: Result Comment: ADA RECOMMENDED LIMIT 4.0 - 6.0 ADA THERAPEUTIC TARGET < 7.0 ACTION SUGGESTED > 7.0 Performed By: #### A 1C ####[facility] [address] [address]DrLisette Abdul Glucose [Mass/Vol] 111 mg/dL Normal [facility] Comment on above: Performed By: #### A 1C ####[facility] [address] [phone] Abdul HbA1c (Bld) [Mass fraction] 5.5 % Normal 4.5-6.2 [facility] Comment on above: Performed By: #### A 1C ####[facility] [address] [id number]. Grace Abdul IRONon 12-11-2021 Iron [Mass/Vol] 50.0 ug/dL Normal 50.0-170.0 [facility] Comment on above: Performed By: #### I KASANDRA WEBSTER, VITB12 ####[facility] [address] [address]Dr. Grace Abdul LIPID PROFILEon 12-11-2021 CHOL-HDL RATIO NORM SEE BELOW Normal [facility] Comment on above: Result Comment: 3.3 - 4.4 LOW RISK 4.4 - 7.1 AVERAGE RISK 7.1 - 11.0 MODERATE RISK >11.0 HIGH RISK Performed By: #### B MP #### [facility] [address] [place], [place] [address] Dr. Grace Abdul Cholesterol [Mass/Vol] 182 mg/dL Normal <=200 [facility] Comment on above: Performed By: #### B MP #### [facility] [address] [place], [place] [address] Dr. Grace Abdul Cholesterol in HDL [Mass/Vol] 60 mg/dL Normal 40-60 [facility] Comment on above: Performed By: #### B MP #### [facility] [address] [address] [address] Grace Abdul Cholesterol in LDL [Mass/Vol] 101.2 mg/dL Normal [facility] Comment on above: Performed By: #### B MP #### [facility] [address] [address] [address] Grace Abdul Cholesterol.total/Ch olesterol in HDL [Mass ratio] 3.0 {ratio} Normal [facility] Comment on above: Performed By: #### B MP #### [facility] [id number] Grace Abdul HDL NORMAL > or = 60 mg/dl - LO W CARDIOVASCULAR RISK <40 mg/dl - HIGH CARDIOVASCULAR RISK Normal [facility] Comment on above: Performed By: #### B MP #### [facility] [address] [place], [place] [address] Dr. Grace Abdul LDL CALC NORMAL SEE BELOW Normal [facility] Comment on above: Result Comment: <100 mg/dl OPTIMAL 100 - 129 mg/dl NEAR OR ABOVE OPTIMAL 130 - 159 mg/dl BORDERLINE HIGH 160 - 189 mg/dl HIGH >190 mg/dl VERY HIGH Performed By: #### B MP #### [facility] [id number] [address] Grace Abdul Triglyceride [Mass/Vol] 104 mg/dL Normal <=150 [facility] Comment on above: Performed By: #### B MP #### [facility] [address] [place] [address] Dr. Grace Abdul VLDL CALC 20.8 mg/dL Normal [facility] Comment on above: Performed By: #### B MP #### [facility] [address] [place] [address] Dr. Grace Abdul PROF 14(COMP METB)on 12-11- 022 Albumin [Mass/Vol] 3.5 g/dL Normal 3.4-5.[address] [facility] Comment on above: Performed By: #### B MP #### [facility] [address] [place] [address] Dr. Grace Abdul Albumin/Globulin [Mass ratio] 1.0 {ratio} Normal [facility] Comment on above: Performed By: #### B MP #### [facility] [address] [place] [address] Dr. Grace Abdul ALP [Catalytic activity/Vol] 55 U/L Normal 46-116 [facility] Comment on above: Performed By: #### B MP #### [facility] [address] [place] [address] Dr. Grace Abdul ALT [Catalytic activity/Vol] 21 U/L Normal 14-59 [facility] Comment on above: Performed By: #### B MP #### [facility] [address] [place] [address] Dr. Grace Abdul Anion gap [Moles/Vol] 9.3 mmol/L Normal [facility] Comment on above: Performed By: #### B MP #### [facility] [address] [place] [address] Dr. Grace Abdul AST [Catalytic activity/Vol] 21 U/L Normal 15-37 [facility] Comment on above: Performed By: #### B MP #### [facility] [address] [place] [address] Dr. Grace Abdul Bilirubin [Mass/Vol] 0.3 mg/dL Normal 0.2-1.0 [facility] Comment on above: Performed By: #### B MP #### [facility] [address] [address] [address] Grace Abdul Calcium [Mass/Vol] 9.5 mg/dL Normal 8.5-10.[address] [facility] Comment on above: Performed By: #### B MP #### [facility] [address] [address] [address] Grace Abdul Chloride [Moles/Vol] 102 mmol/L Normal 98-107 [facility] Comment on above: Performed By: #### B MP #### [facility] [address] [address] [address] Grace Abdul CO2 [Moles/Vol] 28.5 mmol/L Normal 21.0-32.0 [facility] Comment on above: Performed By: #### B MP #### [facility] [address] [address] [address] Grace Abdul Creatinine [Mass/Vol] 1.04 mg/dL Critically high 0.55-1.02 [facility] Comment on above: Performed By: #### B MP #### [facility] [address] [address] [address] Grace Abdul EGFR-AF QATARI >60 Normal >=60 [facility] Comment on above: Performed By: #### B MP #### [facility] [address] [address] [address] Grace Abdul EGFR-NON AF QATARI 51 mL/min/1.73m2 Critically low >=60 [facility] Comment on above: Performed By: #### B MP #### [facility] [address] [address] [address] Grace Abdul Globulin (S) [Mass/Vol] 3.5 g/dL Normal [facility] Comment on above: Performed By: #### B MP #### [facility] [address] [address] [address] Grace Abdul Glucose [Mass/Vol] 102 mg/dL Normal 74-[address] [facility] Comment on above: Performed By: #### B MP #### [facility] [address] [address] [address] Grace Abdul Potassium [Moles/Vol] 3.8 mmol/L Normal 3.5-5.1 [facility] Comment on above: Performed By: #### B MP #### [facility] [address] [address] [address] Grace Abdul Protein [Mass/Vol] 7.0 g/dL Normal 6.4-8.[address] [facility] Comment on above: Performed By: #### B MP #### [facility] [address] [address] [address] Grace Abdul Sodium [Moles/Vol] 136 mmol/L Normal 136-[address] [facility] Comment on above: Performed By: #### B MP #### [facility] [address] [address] [address] Grace Abdul Urea nitrogen [Mass/Vol] 20.0 mg/dL Critically high 7.0-18.0 [facility] Comment on above: Performed By: #### B MP #### [facility] [address] [address] [address] Grace Abdul Urea nitrogen/Creatinine [Mass ratio] 19.2 mg/mg Normal [facility] Comment on above: Performed By: #### B MP #### [facility] [id number] Grace Abdul TSHon 12-11-2021 TSH 0.247 uIU/mL Critically low 0.358-3.740 [facility] Comment on above: Performed By: #### B MP #### [facility] [id number] Grace Abdul VITAMIN B12on 12-11-2021 Cobalamin (Vitamin B12) [Mass/Vol] 762.0 pg/mL Normal 193.0-986.0 [facility] Comment on above: Performed By: #### I DARIN, VITAD, VITB12 ####[facility] [address] [place], [place] [address]. Grace Abdul VITAMIN D 25 OHon 12-11-2021 VIT D 25-OH 54.9 ng/mL Normal [facility] Comment on above: Performed By: #### I DARIN VITAD, VITB12 ####[facility] [address] [place], [place] [address]Ju. Grace Abdul VIT D RANGES SEE BELOW Normal [facility] Comment on above: Result Comment: <20 ng/mL Vit D deficient 20 - <30 ng/mL Vit D insufficient 30 - 100 ng/mL Vit D sufficient >100 ng/mL Potential Toxicity Performed By: #### I DARIN VITAD, VITB12 ####[facility] [address] [place], [place] [address]Ow. Grace Abdul MG MAMM SCREEN 3D CLEMENCIA CADon 11-25-2021 MG MAMM SCREEN 3D CLEMENCIA CAD Patient: ALEXA DELGADO Exam Date: 11/25/2021 : 1940 Gender:F Ordering : DR GALINA ROGERS . Admission #: [id number] Family : DR ELOISA MORALES Order #: [id number] CLICK HERE TO VIEW EXAM RADIOLOGY REPORT [...] Treatments None Family Cancers None LOCATION: [facility] BREAST COMPOSITION: Scattered areas fibroglandular density. [...] MD on 11/25/2021 at 14:14 Normal [facility] CULTURE URINEon 11-24-2021 CULTURE URINE Culture Observations : LIGHT GROWTH OF MIXED GENITAL ALANIS. NO POTENTIAL PATHOGENS SEEN. Normal [facility] Comment on above: Performed By: #### U RCX ####[facility] [address] [address]Dr. Grace Abdul GI PANEL (PCR)on 11-24-2021 Adenovirus F 40/41 Not detected Normal NOT DETECTED [facility] Comment on above: Performed By: #### C BC #### [facility] [address] [place] [address] Dr. Grace Abdul Astrovirus Not detected Normal NOT DETECTED [facility] Comment on above: Performed By: #### C BC #### [facility] [address] [place] [address] Dr. Grace Dorman. Diff toxin A/B Not detected Normal NOT DETECTED [facility] Comment on above: Performed By: #### C BC #### [facility] [address] [place] [address] Dr. Grace Abdul Campylobacter Not detected Normal NOT DETECTED [facility] Comment on above: Performed By: #### C BC #### [facility] [address] [place] [address] Dr. Grace Abdul Cryptosporidium Not detected Normal NOT DETECTED [facility] Comment on above: Performed By: #### C BC #### [facility] [address] [place] [address] Dr. Grace Abdul Cyclos. Cayetanensis Not detected Normal NOT DETECTED [facility] Comment on above: Performed By: #### C BC #### [facility] [address] [place] [address] Dr. Grace Abdul E. Coli O157 Not Applicable Normal Not Applicable [facility] Comment on above: Performed By: #### C BC #### [facility] [address] [address] [address] Grace Abdul E. histolytica Not detected Normal NOT DETECTED [facility] Comment on above: Performed By: #### C BC #### [facility] [address] [place] [address] Dr. Grace Abdul EAEC Not detected Normal NOT DETECTED [facility] Comment on above: Performed By: #### C BC #### [facility] [address] [place] [address] Dr. Grace Abdul EIEC Not detected Normal NOT DETECTED [facility] Comment on above: Performed By: #### C BC #### [facility] [address] [place] [address] Dr. Grace Abdul EPEC Not detected Normal NOT DETECTED [facility] Comment on above: Performed By: #### C BC #### [facility] [address] [place] [address] Dr. Grace Abdul ETEC Not detected Normal NOT DETECTED [facility] Comment on above: Performed By: #### C BC #### [facility] [address] [place] [address] Dr. Grace Smithlivanda Not detected Normal NOT DETECTED [facility] Comment on above: Performed By: #### C BC #### [facility] [address] [place] [address] Dr. Grace MCKEON CONTROLS PASSED Normal [facility] Comment on above: Performed By: #### C BC #### [facility] [address] [place] [address] Dr. Grace MATAMOROS [facility] HEADER GI PANEL BACTERIA Normal [facility] for [facility] Comment on above: Performed By: #### C BC #### [facility] [address] [place] [address] Dr. Grace SANDERS ECOLI GI PANEL DIARRHEAGEN IC E.COLI / SHIGELLA Normal [facility] Comment on above: Performed By: #### C BC #### [facility] [address] [place] [address] Dr. Grace SANDERS INFO SEE BELOW [facility] Comment on above: Result Comment: EAEC - Enteroaggregative E. Coli EPEC- Enteropathogenic E. Coli ETEC- Enterotoxigenic E. Coli lt/st STEC- Shigella-like toxin-producing E. Coli stx1/stx2 EIEC- Shigella/Enteroinvasive E. Coli Performed By: #### C BC #### [facility] [address] [place] [address] Dr. Grace SANDERS PARASITES GI PANEL PARASITES Normal [facility] Comment on above: Performed By: #### C BC #### [facility] [address] [place] [address] Dr. Grace SANDERS VIRUS GI PANEL VIRUSES Normal The [facility] Comment on above: Performed By: #### C BC #### [facility] [address] [address] [address] Grace Abdul Norovirus GI/GII Not detected Normal NOT DETECTED [facility] Comment on above: Performed By: #### C BC #### [facility] [address] [place] [address] Dr. Grace Abdul P. Shigelloides Not detected Normal NOT DETECTED The [facility] Comment on above: Performed By: #### C BC #### [facility] [address] [place] [address] Dr. Grace Abdul Rotavirus A Not detected Normal NOT DETECTED The [facility] Comment on above: Performed By: #### C BC #### [facility] [address] [place] [address] Dr. Grace Abdul Salmonella Not detected Normal NOT DETECTED The [facility] Comment on above: Performed By: #### C BC #### [facility] [address] [place] [address] Dr. Grace Abdul Sapovirus Not detected Normal NOT DETECTED [facility] Comment on above: Performed By: #### C BC #### [facility] [address] [place] [address] Dr. Grace Abdul STEC Not detected Normal NOT DETECTED [facility] Comment on above: Performed By: #### C BC #### [facility] [address] [address] [address] Grace Abdul Vibrio Not detected Normal NOT DETECTED [facility] Comment on above: Performed By: #### C BC #### [facility] [address] [place] [address] Dr. Grace Abdul Vibrio Cholera Not detected Normal NOT DETECTED The [facility] Comment on above: Performed By: #### C BC #### [facility] [address] [address] [address] Grace Blue Enterocolitica Not detected Normal NOT DETECTED The [facility] Comment on above: Performed By: #### C BC #### [facility] [address] [address] [address] Grace Abdul UA RANDOM W/MICROSCOPICon BACTERIA NONE SEEN Normal NONE SEEN The [facility] Comment on above: Performed By: #### U AMIC ####[facility] [address] [address]Dr. Grace Abdul Bilirubin Ql (U) Negative Normal NEGATIVE The [facility] Comment on above: Performed By: #### U AMIC ####[facility] [address] [address]Dr. Grace Abdul CAST NONE SEEN Normal NONE SEEN The [facility] Comment on above: Performed By: #### U AMIC ####[facility] [address] [address]Dr. Grace Abdul Clarity (U) CLEAR Normal CLEAR [facility] Comment on above: Performed By: #### U AMIC ####[facility] [address] [address]Dr. Grace Abdul Color (U) LT. YELLOW Normal YELLOW The [facility] Comment on above: Performed By: #### U AMIC ####[facility] [address] [address]Dr. Grace Abdul Crystals LM Nom (Urine sed) NONE SEEN Normal NONE SEEN The [facility] Comment on above: Performed By: #### U AMIC ####[facility] [address] [address]Dr. Grace Abdul Epithelial cells LM Ql (Urine sed) FEW Abnormal NONE SEEN /RARE The [facility] Comment on above: Performed By: #### U AMIC ####[facility] [address] [address]Dr. Grace Abdul Glucose Ql (U) Negative Normal NEGATIVE The [facility] Comment on above: Performed By: #### U AMIC ####[facility] [address] [address]Dr. Grace Abdul Hemoglobin Ql (U) TRACE-INTACT Abnormal NEGATIVE [facility] Comment on above: Performed By: #### U AMIC ####[facility] [address] [address]Dr. Grace Abdul Ketones Ql (U) Negative Normal NEGATIVE [facility] Comment on above: Performed By: #### U AMIC ####[facility] [address] [place], [place] [address]Dr. Grace Abdul LEUKOCYTES Negative Normal NEGATIVE [facility] Comment on above: Performed By: #### U AMIC ####[facility] [address] [place], [place] [address]Dr. Grace Abdul MUCOUS NONE SEEN Normal NONE SEEN [facility] Comment on above: Performed By: #### U AMIC ####[facility] [address] [place], [place] [address]Dr. Grace Abdul Nitrite Ql (U) Negative Normal NEGATIVE [facility] Comment on above: Performed By: #### U AMIC ####[facility] [address] [place], [place] [address]Dr. Grace Abdul pH (U) 7.5 [pH] Normal 5-9 [facility] Comment on above: Performed By: #### U AMIC ####[facility] [address] [place], [place] [address]Dr. Grace Abdul RBC 0-2 Normal 0-2 [facility] Comment on above: Performed By: #### U AMIC ####[facility] [address] [place], [place] [address]Dr. Grace Abdul SPEC GRAVITY 1.010 Normal 1.005-<=1.[address] [facility] Comment on above: Performed By: #### U AMIC ####[facility] [address] [place], [place] [address]Dr. Grace Abdul UA PROTEIN Negative Normal NEGATIVE/ TRACE [facility] Comment on above: Performed By: #### U AMIC ####[facility] [address] [place], [place] [address]Dr. Grace Abdul Urobilinogen Qn (U) 0.2 {Ashley'U}/dL Normal 0.2 - 1. 0 The [facility] Comment on above: Performed By: #### U AMIC ####[facility] [address] [id number]. Grace Abdul WBC NONE SEEN Normal NONE SEEN The [facility] Comment on above: Performed By: #### U AMIC ####[facility] [address] [id number]. Grace Abdul CBC AUTO DIFFon 11-23-2021 BASO # 0.0 103/ul Normal 0.0-0.1 [facility] Comment on above: Performed By: #### C BC #### [facility] [address] [address] [address] Grace Abdul Basophils/100 WBC (Bld) 0.4 % Normal 0.2-2.0 [facility] Comment on above: Performed By: #### C BC #### [facility] [address] [address] [address] Grace Abdul EO # 0.1 103/ul Normal 0.0-0.7 [facility] Comment on above: Performed By: #### C BC #### [facility] [address] [address] [address] Grace Abdul Eosinophils/100 WBC (Bld) 1.5 % Normal 0.9-7.0 [facility] Comment on above: Performed By: #### C BC #### [facility] [address] [address] [address] Grace Abdul Erythrocyte distribution width (RBC) [Ratio] 13.2 % Normal 11.0-15.0 [facility] Comment on above: Performed By: #### C BC #### [facility] [address] [address] [address] Grace Abdul Hematocrit (Bld) [Volume fraction] 31.9 % Critically low 36.0-48.0 [facility] Comment on above: Performed By: #### C BC #### [facility] [address] [place] [address] Dr. Grace Abdul Hemoglobin (Bld) [Mass/Vol] 10.5 g/dL Critically low 12.0-16.0 [facility] Comment on above: Performed By: #### C BC #### [facility] [address] [place] [address] Dr. Grace Abdul IG # 0.01 10e3/ul Normal 0.00-0.03 [facility] Comment on above: Performed By: #### C BC #### [facility] [address] [place] [address] Dr. Grace Abdul IG % 0.2 % Normal 0.0-0.5 [facility] Comment on above: Performed By: #### C BC #### [facility] [address] [place] [address] Dr. Grace Abdul LYMPH # 0.7 103/ul Critically low 1.2-3.8 [facility] Comment on above: Performed By: #### C BC #### [facility] [address] [place] [address] Dr. Grace Abdul Lymphocytes/100 WBC (Bld) 14.8 % Critically low 20.5-60.0 [facility] Comment on above: Performed By: #### C BC #### [facility] [address] [place] [address] Dr. Grace Abdul MANUAL DIFF REQ NO Normal The [facility] Comment on above: Performed By: #### C BC #### [facility] [address] [place] [address] Dr. Grace Abdul MCH (RBC) [Entitic mass] 31.4 pg Normal 26.7-34.0 [facility] Comment on above: Performed By: #### C BC #### [facility] [address] [place] [address] Dr. Grace Abdul MCHC (RBC) [Mass/Vol] 32.9 g/dL Normal 29.9-35.2 [facility] Comment on above: Performed By: #### C BC #### [facility] [address] [place] [address] Dr. Grace Abdul MCV (RBC) [Entitic vol] 95.5 fL Normal 81.0-99.0 [facility] Comment on above: Performed By: #### C BC #### [facility] [address] [address] [address] Grace Abdul MONO # 0.6 103/ul Normal 0.3-0.8 [facility] Comment on above: Performed By: #### C BC #### [facility] [address] [address] [address] Grace Abdul Monocytes/100 WBC (Bld) 13.4 % Critically high 1.7-12.0 [facility] Comment on above: Performed By: #### C BC #### [facility] [address] [place] [address] Dr. Grace Abdul NEUT # 3.3 103/ul Normal 1.4-6.5 [facility] Comment on above: Performed By: #### C BC #### [facility] [address] [place] [address] Dr. Grace Abdul Neutrophils/100 WBC (Bld) 69.7 % Normal 43.0-75.0 [facility] Comment on above: Performed By: #### C BC #### [facility] [address] [place] [address] Dr. Grace Abdul Platelet mean volume (Bld) [Entitic vol] 9.1 fL Critically low 9.5-13.5 [facility] Comment on above: Performed By: #### C BC #### [facility] [address] [place] [address] Dr. Grace Abdul PLT 335 103/ul Normal 150-450 [facility] Comment on above: Performed By: #### C BC #### [facility] [address] [place] [address] Dr. Grace Abdul RBC 3.34 106/ul Critically low 4.20-5.[address] [facility] Comment on above: Performed By: #### C BC #### [facility] [address] [place] [address] Dr. Grace Abdul WBC 4.8 103/ul Normal 4.0-11.0 [facility] Comment on above: Performed By: #### C BC #### [facility] [address] [address] [address] Grace Abdul FREE THYROXINE INDEX T7on FTI 1.15 Critically low 1.30-4.50 [facility] Comment on above: Performed By: #### T 7, CMP, TSH ####[facility] [address] [id number]. Grace Abdul T3U 31.0 % Normal 30.0-39.0 [facility] Comment on above: Performed By: #### T 7, CMP, TSH ####[facility] [address] [address]DrLisette Abdul T4 [Mass/Vol] 3.70 ug/dL Critically low 4.80-13.90 [facility] Comment on above: Performed By: #### T 7, CMP, TSH ####[facility] [address] [address]DrLisette Abdul IRONon 11-23-2021 Iron [Mass/Vol] 52.0 ug/dL Normal 50.0-170.[address] [facility] Comment on above: Performed By: #### C VDTB #### [facility] [address] [address] [address] Grace Abdul PROF 14(COMP METB)on 022 Albumin [Mass/Vol] 3.5 g/dL Normal 3.4-5.[address] [facility] Comment on above: Performed By: #### T 7, CMP, TSH ####[facility] [address] [id number] Abdul Albumin/Globulin [Mass ratio] 1.1 {ratio} Normal [facility] Comment on above: Performed By: #### T 7, CMP, TSH ####[facility] [address] [id number] Abdul ALP [Catalytic activity/Vol] 69 U/L Normal 46-116 [facility] Comment on above: Performed By: #### T 7, CMP, TSH ####[facility] [address] [address]Dr. Grace Abdul ALT [Catalytic activity/Vol] 51 U/L Normal 14-59 [facility] Comment on above: Performed By: #### T 7, CMP, TSH ####[facility] [address] [address]Dr. Grace Abdul Anion gap [Moles/Vol] 11.5 mmol/L Normal [facility] Comment on above: Performed By: #### T 7, CMP, TSH ####[facility] [address] [place], [place] [address]Dr. Grace Abdul AST [Catalytic activity/Vol] 24 U/L Normal 15-37 [facility] Comment on above: Performed By: #### T 7, CMP, TSH ####[facility] [address] [place], [place] [address]Dr. Grace Abdul Bilirubin [Mass/Vol] 0.2 mg/dL Normal 0.2-1.0 [facility] Comment on above: Performed By: #### T 7, CMP, TSH ####[facility] [address] [place], [place] [address]Dr. Grace Abdul Calcium [Mass/Vol] 9.3 mg/dL Normal 8.5-10.[address] [facility] Comment on above: Performed By: #### T 7, CMP, TSH ####[facility] [address] [place], [place] [address]Dr. Grace Abdul Chloride [Moles/Vol] 98 mmol/L Normal 98-107 [facility] Comment on above: Performed By: #### T 7, CMP, TSH ####[facility] [address] [place], [place] [address]Dr. Grace Abdul CO2 [Moles/Vol] 28.7 mmol/L Normal 21.0-32.0 [facility] Comment on above: Performed By: #### T 7, CMP, TSH ####[facility] [address] [place], [place] [address]Dr. Yilan Abdul Creatinine [Mass/Vol] 1.11 mg/dL Critically high 0.55-1.02 [facility] Comment on above: Performed By: #### T 7, LEONOR, TSH ####[facility] [address] [address]Dr. Grace Abdul EGFR-AF QATARI 57 mL/min/1.73m2 Critically low >=60 [facility] Comment on above: Performed By: #### T 7, CMP, TSH ####[facility] [address] [address]Dr. Grace Abdul EGFR-NON AF QATARI 47 mL/min/1.73m2 Critically low >=60 [facility] Comment on above: Performed By: #### Ainsley 7, LEONOR, TSH ####[facility] [address] [place], [place] [address]Dr. Grace Abdul Globulin (S) [Mass/Vol] 3.3 g/dL Normal [facility] Comment on above: Performed By: #### Ainsley 7, LEONOR, TSH ####[facility] [address] [address]Dr. Grace Abdul Glucose [Mass/Vol] 88 mg/dL Normal 74-[address] [facility] Comment on above: Performed By: #### Ainsley 7, LEONOR, TSH ####[facility] [address] [place], [place] [address]Dr. Grace Abdul Potassium [Moles/Vol] 4.2 mmol/L Normal 3.5-5.1 [facility] Comment on above: Performed By: #### T 7, CMP, TSH ####[facility] [address] [place], [place] [address]Dr. Grace Abdul Protein [Mass/Vol] 6.8 g/dL Normal 6.4-8.[address] [facility] Comment on above: Performed By: #### T 7, CMP, TSH ####[facility] [address] [address]Dr. Grace Abdul Sodium [Moles/Vol] 134 mmol/L Critically low 136-145 [facility] Comment on above: Performed By: #### T 7, CMP, TSH ####[facility] [address] [id number]. Grace Abdul Urea nitrogen [Mass/Vol] 33.0 mg/dL Critically high 7.0-18.0 [facility] Comment on above: Performed By: #### T 7, CMP, TSH ####[facility] [address] [id number]. Grace Abdul Urea nitrogen/Creatinine [Mass ratio] 29.7 mg/mg Normal [facility] Comment on above: Performed By: #### T 7, CMP, TSH ####[facility] [address] [address]DrLisette Abdul TSHon 11-23-2021 TSH 0.469 uIU/mL Normal 0.358-3.740 [facility] Comment on above: Performed By: #### T 7, CMP, TSH ####[facility] [address] [address]DrLisette Abdul CBC AUTO DIFFon 11-17-2021 BASO # 0.0 103/ul Normal 0.0-0.1 [facility] Comment on above: Performed By: #### C VDTBH #### [facility] [address] [place] [address] Dr. Grace Abdul Basophils/100 WBC (Bld) 0.2 % Normal 0.2-2.0 [facility] Comment on above: Performed By: #### C VDTBH #### [facility] [address] [place] [address] Dr. Grace Abdul EO # 0.1 103/ul Normal 0.0-0.7 [facility] Comment on above: Performed By: #### C VDTBH #### [facility] [address] [place] [address] Dr. Grace Abdul Eosinophils/100 WBC (Bld) 0.9 % Normal 0.9-7.0 [facility] Comment on above: Performed By: #### C VDTBH #### [facility] [address] [place] [address] Dr. Grace Abdul Erythrocyte distribution width (RBC) [Ratio] 12.8 % Normal 11.0-15.0 [facility] Comment on above: Performed By: #### C VDTBH #### [facility] [address] [place] [address] Dr. Grace Abdul Hematocrit (Bld) [Volume fraction] 35.2 % Critically low 36.0-48.0 [facility] Comment on above: Performed By: #### C VDTBH #### [facility] [address] [place] [address] Dr. Grace Abdul Hemoglobin (Bld) [Mass/Vol] 12.1 g/dL Normal 12.0-16.0 [facility] Comment on above: Performed By: #### C VDTBH #### [facility] [address] [place] [address] Dr. Grace Abdul IG # 0.05 10e3/ul Critically high 0.00-0.03 [facility] Comment on above: Performed By: #### C VDTBH #### [facility] [address] [place] [address] Dr. Grace Abdul IG % 0.6 % Critically high 0.0-0.5 [facility] Comment on above: Performed By: #### C VDTBH #### [facility] [address] [place] [address] Dr. Grace Abdul LYMPH # 0.6 103/ul Critically low 1.2-3.8 [facility] Comment on above: Performed By: #### C VDTBH #### [facility] [address] [place] [address] Dr. Grace Abdul Lymphocytes/100 WBC (Bld) 7.4 % Critically low 20.5-60.0 [facility] Comment on above: Performed By: #### C VDTBH #### [facility] [address] [place] [address] Dr. Grace Abdul MANUAL DIFF REQ NO Normal [facility] Comment on above: Performed By: #### C VDTBH #### [facility] [address] [place] [address] Dr. Grace Abdul MCH (RBC) [Entitic mass] 31.5 pg Normal 26.7-34.0 [facility] Comment on above: Performed By: #### C VDTBH #### [facility] [address] [place] [address] Dr. Grace Abdul MCHC (RBC) [Mass/Vol] 34.4 g/dL Normal 29.9-35.2 [facility] Comment on above: Performed By: #### C VDTBH #### [facility] [address] [place] [address] Dr. Grace Abdul MCV (RBC) [Entitic vol] 91.7 fL Normal 81.0-99.0 [facility] Comment on above: Performed By: #### C VDTBH #### [facility] [address] [place] [address] Dr. Grace Abdul MONO # 1.0 103/ul Critically high 0.3-0.[address] [facility] Comment on above: Performed By: #### C VDTBH #### [facility] [address] [place] [address] Dr. Grace Abdul Monocytes/100 WBC (Bld) 12.1 % Critically high 1.7-12.0 [facility] Comment on above: Performed By: #### C VDTBH #### [facility] [address] [place] [address] Dr. Grace Abdul NEUT # 6.3 103/ul Normal 1.4-6.5 [facility] Comment on above: Performed By: #### C VDTBH #### [facility] [address] [place] [address] Dr. Grace Abdul Neutrophils/100 WBC (Bld) 78.8 % Critically high 43.0-75.0 [facility] Comment on above: Performed By: #### C VDTBH #### [facility] [address] [place] [address] Dr. Grace Abdul Platelet mean volume (Bld) [Entitic vol] 9.1 fL Critically low 9.5-13.5 [facility] Comment on above: Performed By: #### C VDTBH #### [facility] [address] [place] [address] Dr. Grace Abdul PLT 281 103/ul Normal 150-450 [facility] Comment on above: Performed By: #### C VDTBH #### [facility] [address] [place] [address] Dr. Grace Abdul RBC 3.84 106/ul Critically low 4.20-5.40 [facility] Comment on above: Performed By: #### C VDTBH #### [facility] [address] [place] [address] Dr. Grace Abdul WBC 8.0 103/ul Normal 4.0-11.0 [facility] Comment on above: Performed By: #### C VDTBH #### [facility] [address] [place] [address] Dr. Grace Abdul MAGNESIUMon 11-17-2021 Magnesium [Mass/Vol] 1.9 mg/dL Normal 1.8-2.4 [facility] Comment on above: Performed By: #### C VDTBH #### [facility] [address] [place] [address] Dr. Grace Abdul PROF CHEM 8 (BAS METB)on Anion gap [Moles/Vol] 13.9 mmol/L Normal [facility] Comment on above: Performed By: #### C VDTBH #### [facility] [address] [place] [address] Dr. Grace Abdul Calcium [Mass/Vol] 8.7 mg/dL Normal 8.5-10.[address] [facility] Comment on above: Performed By: #### C VDTBH #### [facility] [address] [place] [address] Dr. Grace Abdul Chloride [Moles/Vol] 101 mmol/L Normal 98-107 [facility] Comment on above: Performed By: #### C VDTBH #### [facility] [address] [place] [address] Dr. Grace Abdul CO2 [Moles/Vol] 24.3 mmol/L Normal 21.0-32.0 [facility] Comment on above: Performed By: #### C VDTBH #### [facility] [address] [address] [address] Grace Abdul Creatinine [Mass/Vol] 0.89 mg/dL Normal 0.55-1.02 [facility] Comment on above: Performed By: #### C VDTBH #### [facility] [address] [address] [address] Grace Abdul EGFR-AF QATARI >60 Normal >=60 [facility] Comment on above: Performed By: #### C VDTBH #### [facility] [address] [address] [address] Grace Abdul EGFR-NON AF QATARI >60 Normal >=60 [facility] Comment on above: Performed By: #### C VDTBH #### [facility] [address] [address] [address] Grace Abdul Glucose [Mass/Vol] 97 mg/dL Normal 74-[address] [facility] Comment on above: Performed By: #### C VDTBH #### [facility] [address] [address] [address] Grace Abdul Potassium [Moles/Vol] 3.2 mmol/L Critically low 3.5-5.1 [facility] Comment on above: Performed By: #### C VDTBH #### [facility] [address] [address] [address] Grace Abdul Sodium [Moles/Vol] 136 mmol/L Normal 136-[address] [facility] Comment on above: Performed By: #### C VDTBH #### [facility] [address] [address] [address] Grace Abdul Urea nitrogen [Mass/Vol] 14.0 mg/dL Normal 7.0-18.0 [facility] Comment on above: Performed By: #### C VDTBH #### [facility] [address] [address] [address] Grace Abdul Urea nitrogen/Creatinine [Mass ratio] 15.7 mg/mg Normal [facility] Comment on above: Performed By: #### C VDTBH #### [facility] [address] [address] [address] Grace Abdul CBC AUTO DIFFon 11-16-2021 BASO # 0.0 103/ul Normal 0.0-0.1 [facility] Comment on above: Performed By: #### B MP #### [facility] [address] [address] [address] Grace Abdul Basophils/100 WBC (Bld) 0.2 % Normal 0.2-2.0 [facility] Comment on above: Performed By: #### B MP #### [facility] [address] [place] [address] Dr. Grace Abdul EO # 0.0 103/ul Normal 0.0-0.7 [facility] Comment on above: Performed By: #### B MP #### [facility] [address] [place] [address] Dr. Grace Abdul Eosinophils/100 WBC (Bld) 0.5 % Critically low 0.9-7.0 [facility] Comment on above: Performed By: #### B MP #### [facility] [address] [place] [address] Dr. Grace Abdul Erythrocyte distribution width (RBC) [Ratio] 12.4 % Normal 11.0-15.0 [facility] Comment on above: Performed By: #### B MP #### [facility] [address] [place] [address] Dr. Grace Abdul Hematocrit (Bld) [Volume fraction] 33.6 % Critically low 36.0-48.0 [facility] Comment on above: Performed By: #### B MP #### [facility] [address] [place] [address] Dr. Grace Abdul Hemoglobin (Bld) [Mass/Vol] 11.8 g/dL Critically low 12.0-16.0 [facility] Comment on above: Performed By: #### B MP #### [facility] [address] [place] [address] Dr. Grace Abdul IG # 0.04 10e3/ul Critically high 0.00-0.03 [facility] Comment on above: Performed By: #### B MP #### [facility] [address] [place] [address] Dr. Grace Abdul IG % 0.7 % Critically high 0.0-0.5 [facility] Comment on above: Performed By: #### B MP #### [facility] [address] [address] [address] Grace Abdul LYMPH # 0.7 103/ul Critically low 1.2-3.8 [facility] Comment on above: Performed By: #### B MP #### [facility] [address] [place] [address] Dr. Grace Abdul Lymphocytes/100 WBC (Bld) 11.1 % Critically low 20.5-60.0 [facility] Comment on above: Performed By: #### B MP #### [facility] [address] [place] [address] Dr. Grace Abdul MANUAL DIFF REQ NO Normal [facility] Comment on above: Performed By: #### B MP #### [facility] [address] [address] [address] Grace Abdul MCH (RBC) [Entitic mass] 31.5 pg Normal 26.7-34.0 [facility] Comment on above: Performed By: #### B MP #### [facility] [address] [place] [address] Dr. Grace Abdul MCHC (RBC) [Mass/Vol] 35.1 g/dL Normal 29.9-35.2 [facility] Comment on above: Performed By: #### B MP #### [facility] [address] [place] [address] Dr. Grace Abdul MCV (RBC) [Entitic vol] 89.6 fL Normal 81.0-99.0 [facility] Comment on above: Performed By: #### B MP #### [facility] [address] [place] [address] Dr. Grace Abdul MONO # 0.9 103/ul Critically high 0.3-0.[address] [facility] Comment on above: Performed By: #### B MP #### [facility] [address] [address] [address] Grace Abdul Monocytes/100 WBC (Bld) 14.0 % Critically high 1.7-12.0 [facility] Comment on above: Performed By: #### B MP #### [facility] [address] [address] [address] Grace Abdul NEUT # 4.5 103/ul Normal 1.4-6.5 [facility] Comment on above: Performed By: #### B MP #### [facility] [address] [address] [address] Grace Abdul Neutrophils/100 WBC (Bld) 73.5 % Normal 43.0-75.0 [facility] Comment on above: Performed By: #### B MP #### [facility] [address] [place] [address] Dr. Grace Abdul Platelet mean volume (Bld) [Entitic vol] 9.3 fL Critically low 9.5-13.5 [facility] Comment on above: Performed By: #### B MP #### [facility] [address] [place] [address] Dr. Grace Abdul PLT 292 103/ul Normal 150-450 [facility] Comment on above: Performed By: #### B MP #### [facility] [address] [address] [address] Grace Abdul RBC 3.75 106/ul Critically low 4.20-5.[address] [facility] Comment on above: Performed By: #### B MP #### [facility] [address] [place] [address] Dr. Grace Abdul WBC 6.1 103/ul Normal 4.0-11.0 [facility] Comment on above: Performed By: #### B MP #### [facility] [address] [place] [address] Dr. Grace Abdul CULTURE URINEon 11-16-2021 CULTURE URINE Culture Observations : LIGHT GROWTH OF MIXED GENITAL ALANIS. NO POTENTIAL PATHOGENS SEEN. Normal [facility] Comment on above: Performed By: #### U RCX ####[facility] [id number] [address] Grace HERNANDEZ URINE PROFILEon 2 Bilirubin Ql (U) Negative Normal NEGATIVE [facility] Comment on above: Performed By: #### C VDTBH #### [facility] [address] [place] [address] Dr. Grace Abdul Clarity (U) CLEAR Normal CLEAR [facility] Comment on above: Performed By: #### C VDTBH #### [facility] [address] [address] [address] Grace Abdul Color (U) LT. YELLOW Normal YELLOW [facility] Comment on above: Performed By: #### C VDTBH #### [facility] [address] [place] [address] Dr. Grace HIGGINS A micrscopic examination will be performed if indicated. Normal [facility] Comment on above: Performed By: #### C VDTBH #### [facility] [address] [place] [address] Dr. Grace Abdul Glucose Ql (U) Negative Normal NEGATIVE [facility] Comment on above: Performed By: #### C VDTBH #### [facility] [address] [place] [address] Dr. Grace Abdul Hemoglobin Ql (U) SMALL Abnormal NEGATIVE [facility] Comment on above: Performed By: #### C VDTBH #### [facility] [address] [address] [address] Grace Abdul Ketones Ql (U) 40 mg/dl Abnormal NEGATIVE [facility] Comment on above: Performed By: #### C VDTBH #### [facility] [address] [place] [address] Dr. Grace Abdul LEUKOCYTES SMALL Abnormal NEGATIVE [facility] Comment on above: Performed By: #### C VDTBH #### [facility] [address] [place] [address] Dr. Grace Abdul Nitrite Ql (U) Negative Normal NEGATIVE [facility] Comment on above: Performed By: #### C VDTBH #### [facility] [address] [place] [address] Dr. Grace Abdul pH (U) 7.0 [pH] Normal 5-9 [facility] Comment on above: Performed By: #### C VDTBH #### [facility] [address] [place] [address] Dr. Grace Abdul SPEC GRAVITY 1.010 Normal 1.005-<=1.025 [facility] Comment on above: Performed By: #### C VDTBH #### [facility] [address] [place] [address] Dr. Grace Abdul UA PROTEIN Negative Normal NEGATIVE/ TRACE [facility] Comment on above: Performed By: #### C VDTBH #### [facility] [address] [place] [address] Dr. Grace Abdul UR MICRO IND INDICATED Normal [facility] Comment on above: Performed By: #### C VDTBH #### [facility] [address] [place] [address] Dr. Grace Abdul Urobilinogen Qn (U) 0.2 {Ashley'U}/dL Normal 0.2 - 1. 0 [facility] Comment on above: Performed By: #### C VDTBH #### [facility] [address] [place] [address] Dr. Grace Abdul MAGNESIUMon 11-16-2021 Magnesium [Mass/Vol] 1.8 mg/dL Normal 1.8-2.4 [facility] Comment on above: Performed By: #### C VDTBH #### [facility] [address] [place] [address] Dr. Grace Abdul PROF CHEM 8 (BAS METB)on Anion gap [Moles/Vol] 12.7 mmol/L Normal [facility] Comment on above: Performed By: #### B MP #### [facility] [address] [place] [address] Dr. Grace Abdul Calcium [Mass/Vol] 8.3 mg/dL Critically low 8.5-10.1 [facility] Comment on above: Performed By: #### B MP #### [facility] [address] [address] [address] Grace Abdul CO2 [Moles/Vol] 24.4 mmol/L Normal 21.0-32.0 [facility] Comment on above: Performed By: #### B MP #### [facility] [address] [address] [address] Grace Abdul Creatinine [Mass/Vol] 1.16 mg/dL Critically high 0.55-1.02 [facility] Comment on above: Performed By: #### B MP #### [facility] [address] [address] [address] Grace Abdul EGFR-AF QATARI 54 mL/min/1.73m2 Critically low >=60 [facility] Comment on above: Performed By: #### B MP #### [facility] [address] [address] [address] Grace Abdul EGFR-NON AF QATARI 45 mL/min/1.73m2 Critically low >=60 [facility] Comment on above: Performed By: #### B MP #### [facility] [address] [address] [address] Grace Abdul Glucose [Mass/Vol] 116 mg/dL Critically high 74-106 [facility] Comment on above: Performed By: #### B MP #### [facility] [address] [address] [address] Grace Abdul Urea nitrogen [Mass/Vol] 20.0 mg/dL Critically high 7.0-18.0 [facility] Comment on above: Performed By: #### B MP #### [facility] [address] [address] [address] Grace Abdul Urea nitrogen/Creatinine [Mass ratio] 17.2 mg/mg Normal [facility] Comment on above: Performed By: #### B MP #### [facility] [address] [address] [address] Grace Abdul Anion gap [Moles/Vol] 10.0 mmol/L Normal [facility] Comment on above: Performed By: #### B MP #### [facility] [address] [address] [address] Grace Abdul Calcium [Mass/Vol] 8.8 mg/dL Normal 8.5-10.[address] [facility] Comment on above: Performed By: #### B MP #### [facility] [address] [address] [address] Grace Abdul Chloride [Moles/Vol] 96 mmol/L Critically low 98-107 [facility] Comment on above: Performed By: #### B MP #### [facility] [address] [address] [address] Grace Abdul CO2 [Moles/Vol] 26.1 mmol/L Normal 21.0-32.0 [facility] Comment on above: Performed By: #### B MP #### [facility] [address] [address] [address] Grace Abdul Creatinine [Mass/Vol] 1.11 mg/dL Critically high 0.55-1.02 [facility] Comment on above: Performed By: #### B MP #### [facility] [address] [address] [address] Grace Abdul EGFR-AF QATARI 57 mL/min/1.73m2 Critically low >=60 [facility] Comment on above: Performed By: #### B MP #### [facility] [address] [address] [address] Grace Abdul EGFR-NON AF QATARI 47 mL/min/1.73m2 Critically low >=60 [facility] Comment on above: Performed By: #### B MP #### [facility] [address] [address] [address] Grace Abdul Glucose [Mass/Vol] 94 mg/dL Normal 74-[address] [facility] Comment on above: Performed By: #### B MP #### [facility] [address] [address] [address] Grace Abdul Potassium [Moles/Vol] 3.1 mmol/L Critically low 3.5-5.1 [facility] Comment on above: Performed By: #### B MP #### [facility] [address] [place] [address] Dr. Grace Abdul Performed By: #### C VDTBH #### [facility] [address] [place] [address] Dr. Grace Abdul Sodium [Moles/Vol] 129 mmol/L Critically low 136-145 [facility] Comment on above: Performed By: #### B MP #### [facility] [address] [place] [address] Dr. Grace Abdul Urea nitrogen [Mass/Vol] 16.0 mg/dL Normal 7.0-18.0 [facility] Comment on above: Performed By: #### B MP #### [facility] [address] [place] [address] Dr. Grace Abdul Urea nitrogen/Creatinine [Mass ratio] 14.4 mg/mg Normal [facility] Comment on above: Performed By: #### B MP #### [facility] [address] [place] [address] Dr. Grace Abdul Anion gap [Moles/Vol] 12.6 mmol/L Normal [facility] Comment on above: Performed By: #### C VDTBH #### [facility] [address] [place] [address] Dr. Grace Abdul Calcium [Mass/Vol] 8.6 mg/dL Normal 8.5-10.[address] [facility] Comment on above: Performed By: #### C VDTBH #### [facility] [address] [place] [address] Dr. Grace Abdul Chloride [Moles/Vol] 95 mmol/L Critically low 98-107 [facility] Comment on above: Performed By: #### B MP #### [facility] [address] [place] [address] Dr. Grace Abdul Performed By: #### C VDTBH #### [facility] [address] [place] [address] Dr. Grace Abdul CO2 [Moles/Vol] 22.5 mmol/L Normal 21.0-32.0 [facility] Comment on above: Performed By: #### C VDTBH #### [facility] [address] [address] [address] Grace Abdul Creatinine [Mass/Vol] 0.95 mg/dL Normal 0.55-1.02 [facility] Comment on above: Performed By: #### C VDTBH #### [facility] [address] [address] [address] Grace Abdul EGFR-AF QATARI >60 Normal >=60 [facility] Comment on above: Performed By: #### C VDTBH #### [facility] [address] [address] [address] Grace Abdul EGFR-NON AF QATARI 56 mL/min/1.73m2 Critically low >=60 [facility] Comment on above: Performed By: #### C VDTBH #### [facility] [address] [place] [address] Dr. Grace Abdul Glucose [Mass/Vol] 92 mg/dL Normal 74-[address] [facility] Comment on above: Performed By: #### C VDTBH #### [facility] [address] [address] [address] Grace Abdul Sodium [Moles/Vol] 127 mmol/L Critically low 136-145 [facility] Comment on above: Performed By: #### C VDTBH #### [facility] [address] [place] [address] Dr. Grace Abdul Urea nitrogen [Mass/Vol] 18.0 mg/dL Normal 7.0-18.0 [facility] Comment on above: Performed By: #### C VDTBH #### [facility] [address] [address] [address] Grace Abdul Urea nitrogen/Creatinine [Mass ratio] 18.9 mg/mg Normal [facility] Comment on above: Performed By: #### C VDTBH #### [facility] [address] [address] [address] Grace Abdul URINE MICROSCOPIC ONLYon BACTERIA TRACE Abnormal NONE SEEN [facility] Comment on above: Performed By: #### C VDTBH #### [facility] [address] [place] [address] Dr. Grace Abdul Bacteria identified Cx Nom (U) INDICATED Normal [facility] Comment on above: Performed By: #### C VDTBH #### [facility] [address] [place] [address] Dr. Grace Abdul CAST NONE SEEN Normal NONE SEEN [facility] Comment on above: Performed By: #### C VDTBH #### [facility] [address] [place] [address] Dr. Grace Abdul Crystals LM Nom (Urine sed) NONE SEEN Normal NONE SEEN [facility] Comment on above: Performed By: #### C VDTBH #### [facility] [address] [place] [address] Dr. Grace Abdul Epithelial cells LM Ql (Urine sed) FEW Abnormal NONE SEEN /RARE [facility] Comment on above: Performed By: #### C VDTBH #### [facility] [address] [place] [address] Dr. Grace Abdul MUCOUS NONE SEEN Normal NONE SEEN [facility] Comment on above: Performed By: #### C VDTBH #### [facility] [address] [place] [address] Dr. Grace Abdul RBC 2-5 Abnormal 0-2 [facility] Comment on above: Performed By: #### C VDTBH #### [facility] [address] [place] [address] Dr. Grace Abdul WBC 5-10 Abnormal NONE SEEN [facility] Comment on above: Performed By: #### C VDTBH #### [facility] [address] [place] [address] Dr. Grace Abdul AMYLASEon 11-15-2021 Amylase [Catalytic activity/Vol] 94 U/L Normal 25-115 [facility] Comment on above: Performed By: #### C VDTBH #### [facility] [address] [place] [address] Dr. Grace Abdul BNPon 11-15-2021 Natriuretic peptide B (Bld) [Mass/Vol] 357.0 pg/mL Normal <=1,800.0 [facility] Comment on above: Performed By: #### C VDTBH #### [facility] [address] [place] [address] Dr. Grace Abdul CARDIAC JOVITA ADMITon 022 CK [Catalytic activity/Vol] 66 U/L Normal 26-192 [facility] Comment on above: Performed By: #### C VDTBH #### [facility] [address] [place] [address] Dr. Grace Abdul CK.MB [Mass/Vol] 2.19 ng/mL Normal <=3.60 [facility] Comment on above: Performed By: #### C VDTBH #### [facility] [address] [place] [address] Dr. Grace Abdul HSTROP 9.5 pg/mL Normal 4.0-51.3 [facility] Comment on above: Result Comment: CUT- OFF POINTS HAVE BEEN ESTABLISHED BASED ON THE FOURTH UNIVERSAL DEFINITIONS OF MYOCARDIAL INFARCTION. THE UPPER REFERENCE LIMIT (URL) OF TROPONIN, DEFINED THE 99TH PERCENTILE OF cTnI DISTRIBUTION IN A REFERENCE POPULATION, HAS BEEN CONFIRMED THE DECISION THRESHOLD FOR [place] DIAGNOSIS. Performed By: #### C VDTBH #### [facility] [address] [place] [address] Dr. Grace Abdul JOHNNA 73 ng/mL Normal 9-82 [facility] Comment on above: Performed By: #### C VDTBH #### [facility] [address] [place] [address] Dr. Grace Abdul CBC AUTO DIFFon 11-15-2021 BASO # 0.0 103/ul Normal 0.0-0.1 [facility] Comment on above: Performed By: #### B MP #### [facility] [address] [place] [address] Dr. Grace Abdul Basophils/100 WBC (Bld) 0.1 % Critically low 0.2-2.0 [facility] Comment on above: Performed By: #### B MP #### [facility] [address] [place] [address] Dr. Grace Abdul EO # 0.0 103/ul Normal 0.0-0.7 [facility] Comment on above: Performed By: #### B MP #### [facility] [address] [place] [address] Dr. Grace Abdul Eosinophils/100 WBC (Bld) 0.1 % Critically low 0.9-7.0 [facility] Comment on above: Performed By: #### B MP #### [facility] [address] [place] [address] Dr. Grace Abdul Erythrocyte distribution width (RBC) [Ratio] 11.9 % Normal 11.0-15.0 [facility] Comment on above: Performed By: #### B MP #### [facility] [address] [place] [address] Dr. Grace Abdul Hematocrit (Bld) [Volume fraction] 36.6 % Normal 36.0-48.0 [facility] Comment on above: Performed By: #### B MP #### [facility] [address] [place] [address] Dr. Grace Abdul Hemoglobin (Bld) [Mass/Vol] 13.2 g/dL Normal 12.0-16.0 [facility] Comment on above: Performed By: #### B MP #### [facility] [address] [place] [address] Dr. Grace Abdul IG # 0.05 10e3/ul Critically high 0.00-0.03 [facility] Comment on above: Performed By: #### B MP #### [facility] [address] [place] [address] Dr. Grace Abdul IG % 0.7 % Critically high 0.0-0.5 [facility] Comment on above: Performed By: #### B MP #### [facility] [address] [place] [address] Dr. Grace Abdul LYMPH # 0.7 103/ul Critically low 1.2-3.8 [facility] Comment on above: Performed By: #### B MP #### [facility] [address] [place] [address] Dr. rGace Abdul Lymphocytes/100 WBC (Bld) 9.8 % Critically low 20.5-60.0 [facility] Comment on above: Performed By: #### B MP #### [facility] [address] [place] [address] Dr. Grace Abdul MANUAL DIFF REQ NO Normal [facility] Comment on above: Performed By: #### B MP #### [facility] [address] [place] [address] Dr. Grace Abdul MCH (RBC) [Entitic mass] 31.5 pg Normal 26.7-34.0 [facility] Comment on above: Performed By: #### B MP #### [facility] [address] [place] [address] Dr. Grace Abdul MCHC (RBC) [Mass/Vol] 36.1 g/dL Critically high 29.9-35.2 [facility] Comment on above: Performed By: #### B MP #### [facility] [address] [place] [address] Dr. Grace Abdul MCV (RBC) [Entitic vol] 87.4 fL Normal 81.0-99.0 [facility] Comment on above: Performed By: #### B MP #### [facility] [address] [place] [address] Dr. Grace Abdul MONO # 0.9 103/ul Critically high 0.3-0.8 [facility] Comment on above: Performed By: #### B MP #### [facility] [address] [place] [address] Dr. Grace Abdul Monocytes/100 WBC (Bld) 12.4 % Critically high 1.7-12.0 [facility] Comment on above: Performed By: #### B MP #### [facility] [address] [place] [address] Dr. Grace Abdul NEUT # 5.8 103/ul Normal 1.4-6.5 [facility] Comment on above: Performed By: #### B MP #### [facility] [address] [place] [address] Dr. Grace Abdul Neutrophils/100 WBC (Bld) 76.9 % Critically high 43.0-75.0 [facility] Comment on above: Performed By: #### B MP #### [facility] [address] [address] [address] Grace Abdul Platelet mean volume (Bld) [Entitic vol] 9.0 fL Critically low 9.5-13.5 [facility] Comment on above: Performed By: #### B MP #### [facility] [address] [address] [address] Grace Abdul PLT 361 103/ul Normal 150-450 [facility] Comment on above: Performed By: #### B MP #### [facility] [address] [address] [address] Grace Abdul RBC 4.19 106/ul Critically low 4.20-5.40 [facility] Comment on above: Performed By: #### B MP #### [facility] [address] [address] [address] Grace Abdul WBC 7.6 103/ul Normal 4.0-11.0 [facility] Comment on above: Performed By: #### B MP #### [facility] [address] [address] [address] Grace Abdul Covid-19 PCR ([facility])on 10-23 SARS-CoV-2 (COVID-19) RNA LUISITO+probe Ql (Unsp spec) Not detected Normal NOT DETECTED [facility] Comment on above: Result Comment: When [...] for this test is supported by the [place] of Health and Human Service's declaration that [...] used). Performed By: #### C VDTBH #### [facility] [address] [place] [address] Dr. Grace Abdul LIPASEon 11-15-2021 Lipase [Catalytic activity/Vol] 178.0 U/L Normal 73.0-393.0 [facility] Comment on above: Performed By: #### C VDTBH #### [facility] [address] [place] [address] Dr. Grace Abdul PROF 14(COMP METB)on 022 Albumin [Mass/Vol] 4.1 g/dL Normal 3.4-5.[address] [facility] Comment on above: Performed By: #### C VDTBH #### [facility] [address] [place] [address] Dr. Grace Abdul Albumin/Globulin [Mass ratio] 1.2 {ratio} Normal [facility] Comment on above: Performed By: #### C VDTBH #### [facility] [address] [place] [address] Dr. Grace Abdul ALP [Catalytic activity/Vol] 63 U/L Normal 46-116 [facility] Comment on above: Performed By: #### C VDTBH #### [facility] [address] [place] [address] Dr. Grace Abdul ALT [Catalytic activity/Vol] 29 U/L Normal 14-59 [facility] Comment on above: Performed By: #### C VDTBH #### [facility] [address] [place] [address] Dr. Grace Abdul Anion gap [Moles/Vol] 14.8 mmol/L Normal [facility] Comment on above: Performed By: #### C VDTBH #### [facility] [address] [place] [address] Dr. Grace Abdul AST [Catalytic activity/Vol] 25 U/L Normal 15-37 [facility] Comment on above: Performed By: #### C VDTB #### [facility] [address] [address] [address] Grace Abdul Bilirubin [Mass/Vol] 0.6 mg/dL Normal 0.2-1.0 [facility] Comment on above: Performed By: #### C VDTBH #### [facility] [address] [address] [address] Grace Abdul Calcium [Mass/Vol] 9.4 mg/dL Normal 8.5-10.[address] [facility] Comment on above: Performed By: #### C VDTBH #### [facility] [address] [address] [address] Grace Abdul Chloride [Moles/Vol] 83 mmol/L Critically low 98-107 [facility] Comment on above: Performed By: #### C VDTBH #### [facility] [address] [place] [address] Dr. Grace Abdul CO2 [Moles/Vol] 24.4 mmol/L Normal 21.0-32.0 [facility] Comment on above: Performed By: #### C VDTBH #### [facility] [address] [place] [address] Dr. Grace Abdul Creatinine [Mass/Vol] 1.15 mg/dL Critically high 0.55-1.02 [facility] Comment on above: Performed By: #### C VDTBH #### [facility] [address] [place] [address] Dr. Grace Abdul EGFR-AF QATARI 55 mL/min/1.73m2 Critically low >=60 [facility] Comment on above: Performed By: #### C VDTBH #### [facility] [address] [place] [address] Dr. Grace Abdul EGFR-NON AF QATARI 45 mL/min/1.73m2 Critically low >=60 [facility] Comment on above: Performed By: #### C VDTBH #### [facility] [address] [place] [address] Dr. Grace Abdul Globulin (S) [Mass/Vol] 3.4 g/dL Normal [facility] Comment on above: Performed By: #### C VDTBH #### [facility] [address] [address] [address] Grace Abdul Glucose [Mass/Vol] 147 mg/dL Critically high 74-106 [facility] Comment on above: Performed By: #### C VDTBH #### [facility] [address] [place] [address] Dr. Grace Abdul Potassium [Moles/Vol] 3.2 mmol/L Critically low 3.5-5.1 [facility] Comment on above: Performed By: #### C VDTBH #### [facility] [address] [place] [address] Dr. Grace Abdul Protein [Mass/Vol] 7.5 g/dL Normal 6.4-8.[address] [facility] Comment on above: Performed By: #### C VDTBH #### [facility] [address] [place] [address] Dr. Grace Abdul Urea nitrogen/Creatinine [Mass ratio] 21.7 mg/mg Normal [facility] Comment on above: Performed By: #### C VDTBH #### [facility] [address] [place] [address] Dr. Grace Abdul PROF CHEM 8 (BAS METB)on Anion gap [Moles/Vol] 13.6 mmol/L Normal [facility] Comment on above: Performed By: #### C VDTBH #### [facility] [address] [place] [address] Dr. Grace Abdul Calcium [Mass/Vol] 8.8 mg/dL Normal 8.5-10.[address] [facility] Comment on above: Performed By: #### C VDTBH #### [facility] [address] [place] [address] Dr. Grace Abdul Chloride [Moles/Vol] 88 mmol/L Critically low 98-107 [facility] Comment on above: Performed By: #### C VDTBH #### [facility] [address] [place] [address] Dr. Grace Abdul CO2 [Moles/Vol] 21.8 mmol/L Normal 21.0-32.0 [facility] Comment on above: Performed By: #### C VDTBH #### [facility] [address] [place] [address] Dr. Grace Abdul Creatinine [Mass/Vol] 1.11 mg/dL Critically high 0.55-1.02 [facility] Comment on above: Performed By: #### C VDTBH #### [facility] [address] [place] [address] Dr. Grace Abdul EGFR-AF QATARI 57 mL/min/1.73m2 Critically low >=60 [facility] Comment on above: Performed By: #### C VDTBH #### [facility] [address] [place] [address] Dr. Grace Abdul EGFR-NON AF QATARI 47 mL/min/1.73m2 Critically low >=60 [facility] Comment on above: Performed By: #### C VDTBH #### [facility] [address] [place] [address] Dr. Grace Abdul Glucose [Mass/Vol] 132 mg/dL Critically high 74-106 [facility] Comment on above: Performed By: #### C VDTBH #### [facility] [address] [place] [address] Dr. Grace Abdul Potassium [Moles/Vol] 3.4 mmol/L Critically low 3.5-5.1 [facility] Comment on above: Performed By: #### C VDTBH #### [facility] [address] [place] [address] Dr. Grace Abdul Sodium [Moles/Vol] 120 mmol/L Critically low 136-145 [facility] Comment on above: Result Comment: Test Repeated. Critical Value Verified Performed By: #### C VDTBH #### [facility] [address] [place] [address] Dr. Grace Abdul Urea nitrogen [Mass/Vol] 25.0 mg/dL Critically high 7.0-18.0 [facility] Comment on above: Performed By: #### C VDTBH #### [facility] [address] [address] [address] Grace Abdul Urea nitrogen/Creatinine [Mass ratio] 22.5 mg/mg Normal [facility] Comment on above: Performed By: #### C VDTBH #### [facility] [address] [place] [address] Dr. Grace Abdul PROTIMEon 11-15-2021 INR Coag (PPP) [Relative time] 0.94 {INR} Normal [facility] Comment on above: Performed By: #### C VDTBH #### [facility] [address] [place] [address] Dr. Grace Abdul INR GUIDELINES SEE BELOW Normal [facility] Comment on above: Result Comment: DURAN RED INR: 2.0 - 3.0 CONDITIONS NOT LISTED BELOW 2.5 - 3.5 FOR PROSTHETIC HEART VALVE REPLACEMENT 2.5 - 3.5 RECURRENT THROMBOSIS Performed By: #### C VDTBH #### [facility] [address] [place] [address] Dr. Grace Abdul PT Coag (PPP) [Time] 10.2 s Normal 9.0-11.6 [facility] Comment on above: Performed By: #### C VDTBH #### [facility] [address] [place] [address] Dr. Grace Abdul XR ABD FLAT UP_PA [...] by: JARET LINARES Date: 2021-11-15 13:56 Normal [facility] BNPon 11-11-2021 Natriuretic peptide B (Bld) [Mass/Vol] 546.0 pg/mL Normal <=1,800.0 [facility] Comment on above: Performed By: #### C MP, TSH, HSTROPN, BNP ####[facility] [id number] [address] Graec Abdul CBC AUTO DIFFon 11-11-2021 BASO # 0.0 103/ul Normal 0.0-0.1 [facility] Comment on above: Performed By: #### C BC #### [facility] [address] [address] [address] Grace Abdul Basophils/100 WBC (Bld) 0.3 % Normal 0.2-2.0 [facility] Comment on above: Performed By: #### C BC #### [facility] [address] [address] [address] Grace Abdul EO # 0.0 103/ul Normal 0.0-0.7 [facility] Comment on above: Performed By: #### C BC #### [facility] [address] [address] [address] Grace Abdul Eosinophils/100 WBC (Bld) 0.5 % Critically low 0.9-7.0 [facility] Comment on above: Performed By: #### C BC #### [facility] [address] [address] [address] Grace Abdul Erythrocyte distribution width (RBC) [Ratio] 12.9 % Normal 11.0-15.0 [facility] Comment on above: Performed By: #### C BC #### [facility] [address] [address] [address] Grace Abdul Hematocrit (Bld) [Volume fraction] 36.1 % Normal 36.0-48.0 [facility] Comment on above: Performed By: #### C BC #### [facility] [address] [address] [address] Grace Abdul Hemoglobin (Bld) [Mass/Vol] 12.3 g/dL Normal 12.0-16.0 [facility] Comment on above: Performed By: #### C BC #### [facility] [address] [address] [address] Grace Abdul IG # 0.01 10e3/ul Normal 0.00-0.03 [facility] Comment on above: Performed By: #### C BC #### [facility] [address] [place] [address] Dr. Grace Abdul IG % 0.3 % Normal 0.0-0.5 [facility] Comment on above: Performed By: #### C BC #### [facility] [address] [place] [address] Dr. Grace Abdul LYMPH # 0.6 103/ul Critically low 1.2-3.8 [facility] Comment on above: Performed By: #### C BC #### [facility] [address] [place] [address] Dr. Grace Abdul Lymphocytes/100 WBC (Bld) 14.8 % Critically low 20.5-60.0 [facility] Comment on above: Performed By: #### C BC #### [facility] [address] [place] [address] Dr. Grace Abdul MANUAL DIFF REQ NO Normal [facility] Comment on above: Performed By: #### C BC #### [facility] [address] [place] [address] Dr. Grace Abdul MCH (RBC) [Entitic mass] 31.5 pg Normal 26.7-34.0 [facility] Comment on above: Performed By: #### C BC #### [facility] [address] [place] [address] Dr. Grace Abdul MCHC (RBC) [Mass/Vol] 34.1 g/dL Normal 29.9-35.2 [facility] Comment on above: Performed By: #### C BC #### [facility] [address] [place] [address] Dr. Grace Abdul MCV (RBC) [Entitic vol] 92.6 fL Normal 81.0-99.0 [facility] Comment on above: Performed By: #### C BC #### [facility] [address] [place] [address] Dr. Grace Abdul MONO # 0.5 103/ul Normal 0.3-0.8 [facility] Comment on above: Performed By: #### C BC #### [facility] [address] [place] [address] Dr. Grace Abdul Monocytes/100 WBC (Bld) 13.5 % Critically high 1.7-12.0 [facility] Comment on above: Performed By: #### C BC #### [facility] [address] [place] [address] Dr. Grace Abdul NEUT # 2.7 103/ul Normal 1.4-6.5 [facility] Comment on above: Performed By: #### C BC #### [facility] [address] [place] [address] Dr. Grace Abdul Neutrophils/100 WBC (Bld) 70.6 % Normal 43.0-75.0 [facility] Comment on above: Performed By: #### C BC #### [facility] [address] [place] [address] Dr. Grace Abdul Platelet mean volume (Bld) [Entitic vol] 9.2 fL Critically low 9.5-13.5 [facility] Comment on above: Performed By: #### C BC #### [facility] [address] [place] [address] Dr. Grace Abdul PLT 279 103/ul Normal 150-450 [facility] Comment on above: Performed By: #### C BC #### [facility] [address] [place] [address] Dr. Grace Abdul RBC 3.90 106/ul Critically low 4.20-5.40 [facility] Comment on above: Performed By: #### C BC #### [facility] [address] [place] [address] Dr. Grace Abdul WBC 3.9 103/ul Critically low 4.0-11.0 [facility] Comment on above: Performed By: #### C BC #### [facility] [address] [place] [address] Dr. Grace Abdul PROF 14(COMP METB)on 022 Albumin [Mass/Vol] 3.3 g/dL Critically low 3.4-5.0 [facility] Comment on above: Performed By: #### C MP, TSH, HSTROPN, BNP #### [facility] [address] [place] [address] Dr. Grace Abdul Albumin/Globulin [Mass ratio] 1.2 {ratio} Normal [facility] Comment on above: Performed By: #### C MP, TSH, HSTROPN, BNP #### [facility] [address] [place] [address] Dr. Grace Abdul ALP [Catalytic activity/Vol] 60 U/L Normal 46-116 [facility] Comment on above: Performed By: #### C MP, TSH, HSTROPN, BNP #### [facility] [address] [place] [address] Dr. Grace Abdul ALT [Catalytic activity/Vol] 26 U/L Normal 14-59 [facility] Comment on above: Performed By: #### C MP, TSH, HSTROPN, BNP #### [facility] [address] [place] [address] Dr. Grace Abdul Anion gap [Moles/Vol] 14.8 mmol/L Normal [facility] Comment on above: Performed By: #### C MP, TSH, HSTROPN, BNP #### [facility] [address] [place] [address] Dr. Grace Abdul AST [Catalytic activity/Vol] 20 U/L Normal 15-37 [facility] Comment on above: Performed By: #### C MP, TSH, HSTROPN, BNP #### [facility] [address] [place] [address] Dr. Grace Abdul Bilirubin [Mass/Vol] 0.3 mg/dL Normal 0.2-1.0 [facility] Comment on above: Performed By: #### C MP, TSH, HSTROPN, BNP #### [facility] [address] [place] [address] Dr. Grace Abdul Calcium [Mass/Vol] 8.2 mg/dL Critically low 8.5-10.1 [facility] Comment on above: Performed By: #### C MP, TSH, HSTROPN, BNP #### [facility] [address] [address] [address] Grace Abdul Chloride [Moles/Vol] 100 mmol/L Normal 98-107 [facility] Comment on above: Performed By: #### C MP, TSH, HSTROPN, BNP #### [facility] [address] [place] [address] Dr. Grace Abdul CO2 [Moles/Vol] 23.8 mmol/L Normal 21.0-32.0 [facility] Comment on above: Performed By: #### C MP, TSH, HSTROPN, BNP #### [facility] [address] [place] [address] Dr. Grace Abdul Creatinine [Mass/Vol] 1.27 mg/dL Critically high 0.55-1.02 [facility] Comment on above: Performed By: #### C MP, TSH, HSTROPN, BNP #### [facility] [address] [place] [address] Dr. Grace Abdul EGFR-AF QATARI 49 mL/min/1.73m2 Critically low >=60 [facility] Comment on above: Performed By: #### C MP, TSH, HSTROPN, BNP #### [facility] [address] [place] [address] Dr. Grace Abdul EGFR-NON AF QATARI 40 mL/min/1.73m2 Critically low >=60 [facility] Comment on above: Performed By: #### C MP, TSH, HSTROPN, BNP #### [facility] [address] [place] [address] Dr. Grace Abdul Globulin (S) [Mass/Vol] 2.7 g/dL Normal [facility] Comment on above: Performed By: #### C MP, TSH, HSTROPN, BNP #### [facility] [address] [place] [address] Dr. Grace Abdul Glucose [Mass/Vol] 116 mg/dL Critically high 74-106 [facility] Comment on above: Performed By: #### C MP, TSH, HSTROPN, BNP #### [facility] [address] [place] [address] Dr. Grace Abdul Potassium [Moles/Vol] 3.6 mmol/L Normal 3.5-5.1 [facility] Comment on above: Performed By: #### C MP, TSH, HSTROPN, BNP #### [facility] [address] [address] [address] Grace Abdul Protein [Mass/Vol] 6.0 g/dL Critically low 6.4-8.2 Th [facility] Comment on above: Performed By: #### C MP, TSH, HSTROPN, BNP #### [facility] [address] [place] [address] Dr. Grace Abdul Sodium [Moles/Vol] 135 mmol/L Critically low 136-145 Th [facility] Comment on above: Performed By: #### C MP, TSH, HSTROPN, BNP #### [facility] [address] [place] [address] Dr. Grace Abdul Urea nitrogen [Mass/Vol] 25.0 mg/dL Critically high 7.0-18.0 [facility] Comment on above: Performed By: #### C MP, TSH, HSTROPN, BNP #### [facility] [address] [place] [address] Dr. Grace Abdul Urea nitrogen/Creatinine [Mass ratio] 19.7 mg/mg Normal [facility] Comment on above: Performed By: #### C MP, TSH, HSTROPN, BNP #### [facility] [address] [place] [address] Dr. Grace Abdul PROTIMEon 11-11-2021 INR Coag (PPP) [Relative time] 0.95 {INR} Normal [facility] Comment on above: Performed By: #### B MP #### [facility] [address] [place] [address] Dr. Grace Abdul INR GUIDELINES SEE BELOW Normal [facility] Comment on above: Result Comment: DURAN RED INR: 2.0 - 3.0 CONDITIONS NOT LISTED BELOW 2.5 - 3.5 FOR PROSTHETIC HEART VALVE REPLACEMENT 2.5 - 3.5 RECURRENT THROMBOSIS Performed By: #### B MP #### [facility] [address] [address] [address] Grace Abdul PT Coag (PPP) [Time] 10.3 s Normal 9.0-11.6 [facility] Comment on above: Performed By: #### B MP #### [facility] [id number] Grace Abdul PTTon 11-11-2021 aPTT Coag (Bld) [Time] 21.3 s Critically low 22.3-36.2 [facility] Comment on above: Performed By: #### B MP #### [facility] [address] [address] [address] Grace Abdul TROPONIN, HIGH SENSITIVITYon 11-11-2021 HSTROP 6.5 pg/mL Normal 4.0-51.3 [facility] Comment on above: Result Comment: CUT- OFF POINTS HAVE BEEN ESTABLISHED BASED ON THE FOURTH UNIVERSAL DEFINITIONS OF MYOCARDIAL INFARCTION. THE UPPER REFERENCE LIMIT (URL) OF TROPONIN, DEFINED THE 99TH PERCENTILE OF cTnI DISTRIBUTION IN A REFERENCE POPULATION, HAS BEEN CONFIRMED THE DECISION THRESHOLD FOR [place] DIAGNOSIS. Performed By: #### C MP, TSH, HSTROPN, BNP #### [facility] [id number] Grace Abdul TSHon 11-11-2021 TSH 2.140 uIU/mL Normal 0.358-3.740 The [facility] Comment on above: Performed By: #### C MP, TSH, HSTROPN, BNP ####[facility] [id number] [place], [place] [address]CtDr. Grace Abdul XR CHEST 1 Von 11-11-2021 [...] or significant chronic changes. Electronically authenticated by: KRANTHI CONNORS Date: 2021-11-11 13:34 Normal [facility] CARDIAC JOVITA ADMITon 022 CK [Catalytic activity/Vol] 89 U/L Normal 26-192 [facility] Comment on above: Performed By: #### C VDTBH #### [facility] [address] [place] [address] Dr. Grace Abdul CK.MB [Mass/Vol] 1.92 ng/mL Normal <=3.60 The [facility] Comment on above: Performed By: #### C VDTBH #### [facility] [address] [place] [address] Dr. Grace Abdul HSTROP 5.7 pg/mL Normal 4.0-51.3 [facility] Comment on above: Result Comment: CUT- OFF POINTS HAVE BEEN ESTABLISHED BASED ON THE FOURTH UNIVERSAL DEFINITIONS OF MYOCARDIAL INFARCTION. THE UPPER REFERENCE LIMIT (URL) OF TROPONIN, DEFINED THE 99TH PERCENTILE OF cTnI DISTRIBUTION IN A REFERENCE POPULATION, HAS BEEN CONFIRMED THE DECISION THRESHOLD FOR [place] DIAGNOSIS. Performed By: #### C VDTBH #### [facility] [address] [place] [address] Dr. Grace Abdul JOHNNA 86 ng/mL Critically high 9-[address] [facility] Comment on above: Performed By: #### C VDTBH #### [facility] [address] [place] [address] Dr. Grace Abdul CBC AUTO DIFFon 09-13-2021 BASO # 0.0 103/ul Normal 0.0-0.1 [facility] Comment on above: Performed By: #### C VDTBH #### [facility] [address] [place] [address] Dr. Grace Abdul Basophils/100 WBC (Bld) 0.5 % Normal 0.2-2.0 [facility] Comment on above: Performed By: #### C VDTBH #### [facility] [address] [place] [address] Dr. Grace Abdul EO # 0.0 103/ul Normal 0.0-0.7 [facility] Comment on above: Performed By: #### C VDTBH #### [facility] [address] [place] [address] Dr. Grace Abdul Eosinophils/100 WBC (Bld) 0.7 % Critically low 0.9-7.0 [facility] Comment on above: Performed By: #### C VDTBH #### [facility] [address] [place] [address] Dr. Grace Abdul Erythrocyte distribution width (RBC) [Ratio] 13.2 % Normal 11.0-15.0 [facility] Comment on above: Performed By: #### C VDTBH #### [facility] [address] [place] [address] Dr. Grace Abdul Hematocrit (Bld) [Volume fraction] 34.8 % Critically low 36.0-48.0 [facility] Comment on above: Performed By: #### C VDTBH #### [facility] [address] [place] [address] Dr. Grace Abdul Hemoglobin (Bld) [Mass/Vol] 11.9 g/dL Critically low 12.0-16.0 [facility] Comment on above: Performed By: #### C VDTBH #### [facility] [address] [place] [address] Dr. Grace Abdul IG # 0.01 10e3/ul Normal 0.00-0.03 [facility] Comment on above: Performed By: #### C VDTBH #### [facility] [address] [place] [address] Dr. Grace Abdul IG % 0.2 % Normal 0.0-0.5 [facility] Comment on above: Performed By: #### C VDTBH #### [facility] [address] [place] [address] Dr. Grace Abdul LYMPH # 0.6 103/ul Critically low 1.2-3.8 [facility] Comment on above: Performed By: #### C VDTBH #### [facility] [address] [address] [address] Grace Abdul Lymphocytes/100 WBC (Bld) 14.2 % Critically low 20.5-60.0 [facility] Comment on above: Performed By: #### C VDTBH #### [facility] [address] [place] [address] Dr. Grace Abdul MANUAL DIFF REQ NO Normal The [facility] Comment on above: Performed By: #### C VDTBH #### [facility] [address] [place] [address] Dr. Grace Abdul MCH (RBC) [Entitic mass] 31.5 pg Normal 26.7-34.0 [facility] Comment on above: Performed By: #### C VDTBH #### [facility] [address] [place] [address] Dr. Grace Abdul MCHC (RBC) [Mass/Vol] 34.2 g/dL Normal 29.9-35.2 [facility] Comment on above: Performed By: #### C VDTBH #### [facility] [address] [place] [address] Dr. Grace Abdul MCV (RBC) [Entitic vol] 92.1 fL Normal 81.0-99.0 [facility] Comment on above: Performed By: #### C VDTBH #### [facility] [address] [place] [address] Dr. Grace Abdul MONO # 0.7 103/ul Normal 0.3-0.8 [facility] Comment on above: Performed By: #### C VDTBH #### [facility] [address] [place] [address] Dr. Grace Abdul Monocytes/100 WBC (Bld) 15.6 % Critically high 1.7-12.0 [facility] Comment on above: Performed By: #### C VDTBH #### [facility] [address] [place] [address] Dr. Grace Abdul NEUT # 3.0 103/ul Normal 1.4-6.5 [facility] Comment on above: Performed By: #### C VDTBH #### [facility] [address] [address] [address] Grace Abdul Neutrophils/100 WBC (Bld) 68.8 % Normal 43.0-75.0 [facility] Comment on above: Performed By: #### C VDTBH #### [facility] [address] [place] [address] Dr. Grace Abdul Platelet mean volume (Bld) [Entitic vol] 9.5 fL Normal 9.5-13.5 [facility] Comment on above: Performed By: #### C VDTBH #### [facility] [address] [place] [address] Dr. Grace Abdul PLT 303 103/ul Normal 150-450 [facility] Comment on above: Performed By: #### C VDTBH #### [facility] [address] [place] [address] Dr. Grace Abdul RBC 3.78 106/ul Critically low 4.20-5.[address] [facility] Comment on above: Performed By: #### C VDTBH #### [facility] [address] [place] [address] Dr. Grace Abdul WBC 4.4 103/ul Normal 4.0-11.0 [facility] Comment on above: Performed By: #### C VDTBH #### [facility] [address] [place] [address] HEAD WO CONon [...] KRANTHI CONNORS Date: 2021-09-13 13:24 Normal [facility]22 SARS-CoV-2 (COVID-19) RNA LUISITO+probe Ql (Unsp spec) Not detected Normal NOT DETECTED [facility] Comment on above: Result Comment: When [...] for this test is supported by the Bending [employer] of Health and Human Service's declaration that [...] used). Performed By: #### C VDTBH #### [facility] [address] [place] [address] Dr. Grace Abdul ER URINE PROFILEon Bilirubin Ql (U) Negative Normal NEGATIVE [facility] Comment on above: Performed By: #### B MP #### [facility] [address] [place] [address] Dr. Grace Abdul Clarity (U) CLEAR Normal CLEAR [facility] Comment on above: Performed By: #### B MP #### [facility] [address] [place] [address] Dr. Grace Abdul Color (U) LT. YELLOW Normal YELLOW [facility] Comment on above: Performed By: #### B MP #### [facility] [address] [place] [address] Dr. Grace Abdul ERUAHD A micrscopic examination will be performed if indicated. Normal [facility] Comment on above: Performed By: #### B MP #### [facility] [address] [address] [address] Grace Abdul Glucose Ql (U) Negative Normal NEGATIVE [facility] Comment on above: Performed By: #### B MP #### [facility] [address] [place] [address] Dr. Grace Abdul Hemoglobin Ql (U) Negative Normal NEGATIVE [facility] Comment on above: Performed By: #### B MP #### [facility] [address] [place] [address] Dr. Grace Abdul Ketones Ql (U) TRACE Abnormal NEGATIVE [facility] Comment on above: Performed By: #### B MP #### [facility] [address] [place] [address] Dr. Grace Abdul LEUKOCYTES TRACE Abnormal NEGATIVE [facility] Comment on above: Performed By: #### B MP #### [facility] [address] [place] [address] Dr. Grace Abdul Nitrite Ql (U) Negative Normal NEGATIVE [facility] Comment on above: Performed By: #### B MP #### [facility] [address] [place] [address] Dr. Grace Abdul pH (U) 8.0 [pH] Normal 5-9 [facility] Comment on above: Performed By: #### B MP #### [facility] [address] [place] [address] Dr. Grace Abdul SPEC GRAVITY 1.015 Normal 1.005-<=1.025 [facility] Comment on above: Performed By: #### B MP #### [facility] [address] [place] [address] Dr. Grace Abdul UA PROTEIN Negative Normal NEGATIVE/ TRACE [facility] Comment on above: Performed By: #### B MP #### [facility] [address] [place] [address] Dr. Grace Abdul UR MICRO IND INDICATED Normal [facility] Comment on above: Performed By: #### B MP #### [facility] [address] [place] [address] Dr. Grace Abdul Urobilinogen Qn (U) 0.2 {Ashley'U}/dL Normal 0.2 - 1. 0 [facility] Comment on above: Performed By: #### B #### [facility] [address] [address] [address] Grace Abdul PROF 14(COMP METB)on 022 Albumin [Mass/Vol] 3.8 g/dL Normal 3.4-5.[address] [facility] Comment on above: Performed By: #### C VDTBH #### [facility] [address] [place] [address] Dr. Grace bAdul Albumin/Globulin [Mass ratio] 1.4 {ratio} Normal [facility] Comment on above: Performed By: #### C VDTBH #### [facility] [address] [place] [address] Dr. Grace Abdul ALP [Catalytic activity/Vol] 53 U/L Normal 46-116 [facility] Comment on above: Performed By: #### C VDTBH #### [facility] [address] [place] [address] Dr. Grace Abdul ALT [Catalytic activity/Vol] 20 U/L Normal 14-59 [facility] Comment on above: Performed By: #### C VDTBH #### [facility] [address] [place] [address] Dr. Grace Abdul Anion gap [Moles/Vol] 12.0 mmol/L Normal [facility] Comment on above: Performed By: #### C VDTBH #### [facility] [address] [place] [address] Dr. Grace Abdul AST [Catalytic activity/Vol] 18 U/L Normal 15-37 [facility] Comment on above: Performed By: #### C VDTBH #### [facility] [address] [place] [address] Dr. Grace Abdul Bilirubin [Mass/Vol] 0.4 mg/dL Normal 0.2-1.0 [facility] Comment on above: Performed By: #### C VDTBH #### [facility] [address] [address] [address] Grace Abdul Calcium [Mass/Vol] 9.5 mg/dL Normal 8.5-10.[address] [facility] Comment on above: Performed By: #### C VDTBH #### [facility] [address] [address] [address] rGace Abdul Chloride [Moles/Vol] 99 mmol/L Normal 98-107 [facility] Comment on above: Performed By: #### C VDTBH #### [facility] [address] [address] [address] Grace Abdul CO2 [Moles/Vol] 28.1 mmol/L Normal 21.0-32.0 [facility] Comment on above: Performed By: #### C VDTBH #### [facility] [address] [place] [address] Dr. Grace Abdul Creatinine [Mass/Vol] 1.25 mg/dL Critically high 0.55-1.02 [facility] Comment on above: Performed By: #### C VDTBH #### [facility] [address] [address] [address] Grace Abdul EGFR-AF QATARI 50 mL/min/1.73m2 Critically low >=60 [facility] Comment on above: Performed By: #### C VDTBH #### [facility] [address] [place] [address] Dr. Grace Abdul EGFR-NON AF QATARI 41 mL/min/1.73m2 Critically low >=60 [facility] Comment on above: Performed By: #### C VDTBH #### [facility] [address] [address] [address] Grace Abdul Globulin (S) [Mass/Vol] 2.7 g/dL Normal [facility] Comment on above: Performed By: #### C VDTBH #### [facility] [address] [address] [address] Grace Abdul Glucose [Mass/Vol] 131 mg/dL Critically high 74-106 [facility] Comment on above: Performed By: #### C VDTBH #### [facility] [address] [place] [address] Dr. Grace Abdul Potassium [Moles/Vol] 4.1 mmol/L Normal 3.5-5.1 [facility] Comment on above: Performed By: #### C VDTBH #### [facility] [address] [place] [address] Dr. Grace Abdul Protein [Mass/Vol] 6.5 g/dL Normal 6.4-8.[address] [facility] Comment on above: Performed By: #### C VDTBH #### [facility] [address] [place] [address] Dr. Grace Abdul Sodium [Moles/Vol] 135 mmol/L Critically low 136-145 Th [facility] Comment on above: Performed By: #### C VDTBH #### [facility] [address] [place] [address] Dr. Grace Abdul Urea nitrogen [Mass/Vol] 33.0 mg/dL Critically high 7.0-18.0 [facility] Comment on above: Performed By: #### C VDTBH #### [facility] [address] [place] [address] Dr. Grace Abdul Urea nitrogen/Creatinine [Mass ratio] 26.4 mg/mg Normal [facility] Comment on above: Performed By: #### C VDTBH #### [facility] [address] [place] [address] Dr. Grace Abdul URINE MICROSCOPIC ONLYon BACTERIA NONE SEEN Normal NONE SEEN [facility] Comment on above: Performed By: #### C BC #### [facility] [address] [place] [address] Dr. Grace Abdul Bacteria identified Cx Nom (U) NOT INDICATED Normal [facility] Comment on above: Performed By: #### C BC #### [facility] [address] [place] [address] Dr. Grace Abdul CAST NONE SEEN Normal NONE SEEN [facility] Comment on above: Performed By: #### C BC #### [facility] [address] [address] [address] Grace Abdul Crystals LM Nom (Urine sed) NONE SEEN Normal NONE SEEN [facility] Comment on above: Performed By: #### C BC #### [facility] [address] [place] [address] Dr. Grace Abdul Epithelial cells LM Ql (Urine sed) FEW Abnormal NONE SEEN /RARE [facility] Comment on above: Performed By: #### C BC #### [facility] [address] [place] [address] Dr. Grace Abdul MUCOUS NONE SEEN Normal NONE SEEN [facility] Comment on above: Performed By: #### C BC #### [facility] [address] [place] [address] Dr. Grace Abdul RBC 0-2 Normal 0-2 [facility] Comment on above: Performed By: #### C BC #### [facility] [address] [place] [address] Dr. Grace Abdul WBC 0-2 Abnormal NONE SEEN [facility] Comment on above: Performed By: #### C BC #### [facility] [address] [place] [address] Dr. Grace Abdul XR CHEST 1 Von [...] KRANTHI CONNORS Date: 2021-09-13 13:19 Normal [facility] CERV SP W/OBLS/FLEX/EXT 6 OR >on 12-12-2020 CERV SP W/OBLS/FLEX/EXT 6 OR > STUDY: CERV SP W/OBLS/FLEX/EXT 6 OR >; 12/12/2020 9:40 am INDICATION: NECK PAIN. COMPARISON: None. ACCESSION NUMBER(S): [id number] ORDERING CLINICIAN: Aiden Younger TECHNIQUE: AP, lateral, [...] findings. Dense left carotid artery calcifications. Normal [facility] Vital Signs Date Time Vital Sign Value Performing Clinician Aimee pollock 09-21-2022 12:51-0400 Diastolic blood pressure 60 mm[Hg] Carolyn Vanegas MD Work Phone: [facility] 09-21-2022 12:51-0400 Heart rate 67 /min Carolyn Vanegas MD Work Phone: [facility] 09-21-2022 12:51-0400 Systolic blood pressure 153 mm[Hg] Carolyn Vanegas MD Work Phone: [facility] 05-14-2022 14:24-0400 Diastolic blood pressure 87 mm[Hg] Marty Dozier DO Work Phone: [facility] 05-14-2022 14:24-0400 Heart rate 72 /min Marty Dozier DO Work Phone: [facility] 05-14-2022 14:24-0400 Systolic blood pressure 158 mm[Hg] Marty Dozier DO Work Phone: [facility] 05-14-2022 14:22-0400 Body height 152.4 cm Marty Dozier DO Work Phone: [facility] 05-14-2022 14:22-0400 Body weight 76.39 kg Marty Dozier DO Work Phone: [facility] 05-14-2022 14:22-0400 SaO2% (BldA) [Mass fraction] 99 % Marty Dozier DO Work Phone: [facility] Encounters Encounter Date Encounter Type Care Provider Facility Start: 01-17-2023 End: 01-18-2023 ambulatory Lyn Quiñones MD [facility]: [facility] Start: 12-27-2022 End: 12-28-2022 ambulatory Lyn Quiñones MD Facility: [facility] Start: 12-20-2022 End: 12-21-2022 ambulatory Lyn [facility] Start: 11-15-2022 End: 11-16-2022 ambulatory Lyn Quiñones MD [facility] Start: 09-21-2022 End: 09-21-2022 ambulatory GALINA ROGERS Facility:[facility] Start: 09-21-2022 End: 09-21-2022 Patient encounter procedure Carolyn Vanegas MD Work Phone: Neurosurgery Comment on above: Obesity, Class I, BM I 30-34.9 (Primary Dx); Spinal stenosis, lumbar region with neurogenic claudication Start: 08-19-2022 Chart abstracting None (Historical) Neurology Start: 07-22-2022 ambulatory NARENDRANATH LAKSHMIPATHY . Facility:[facility] Start: 07-16-2022 End: 07-17-[address] GALINA ROGERS . Facility:[facility] Start: 06-22-2022 End: 06-22-2022 ambulatory NARENDRANATH LAKSHMIPATHAshlie . Facility:[facility] Start: 06-15-2022 End: 06-16-2022 ambulatory NARENDRANATH LAKSHMIPATHY . Facility:[facility] Start: 06-10-[address] GALINA ROGERS . Facili ty:[facility] Start: 06-01-2022 End: 06-01-2022 ambulatory NARENDRANATH SURAJSHMIPATHAshile . 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 Facility:[facility] Start: 04-13-2022 End: 04-13-2022 ambulatory [...] Evaluation and management of inpatient SHAIKH Zaria BERNALNYDIAAly Facility:[facility] Start: 11-11-2021 End: 11-11-2021 ambulatory ROGE ALEJO . Facility:[facility] Start: 09-30-2021 End: 10-01-[address] NIKO BECKWITH . Facility:[facility] Start: 09-13-2021 End: 09-13-2021 ambulatory ROGE ALEJO . Facility:[facility] Start: 09-12-2017 End: 09-13-2017 Patient encounter DEFAULT PHYSICIAN Facility:[facility] Plan of Treatment Date Care Activity Detail Author Start: 10-22-2022 Influenza vaccination INFLUENZA (#1) [facility] Start: 04-11-2022 COVID-19 VACCINE (6 - Moderna series) COVID-19 VACCINE (6 - Moderna series) [facility] Start: 02-21-2022 ADVANCE DIRECTIVE DISCUSSION ADVANCE DIRECTIVE DISCUSSION [facility] Start: 02-21-2022 DEPRESSION ASSESSMENT DEPRESSION ASS ESSMENT [facility] Start: 11-12-2017 PNEUMOCOCCAL: 65+ (2 - PPSV23 if available, else PCV20) PNEUMOCOCCAL: 65+ (2 - PPSV23 if available, else PCV20) [facility] Start: 11-12-2017 PNEUMOCOCCAL: 65+ (2 - PPSV23 or PCV20) PNEUMOCOCCAL: 65+ (2 - PPSV23 or PCV20) [facility] Start: 07-22-2017 SHINGRIX VACCINE (2 of 3) MANLEY GRIX VACCINE (2 of 3) [facility] Start: 04-30-2004 BONE DENSITY BONE DENSITY [facility] Start: 04-30-1984 DIABETES SCREEN DIABETES SCREEN [facility] Start: 04-30-1958 Urine microalbumin profile DTAP,TDAP ,TD (1 - Tdap) [facility] Immunizations Immunization Date Immunization Notes Care Provider Armando schwartz 12-02-2021 Influenza, injectabl e, Madin Carmina Canine Kidney, preservative free, quadrivalent Marty Dozier DO Work Phone: [facility] 11-28-2020 influenza virus vacc ine, unspecified formulation Marty Dozier DO Work Phone: [facility] 11-29-2019 Seasonal trivalent influenza vaccine, adjuvanted, preservative free Marty Dozier DO Work Phone: [facility] 05-27-2017 zoster vaccine, live Marty Dozier DO Work Phone: [facility] 11-12-2016 pneumococcal conjuga te vaccine, 13 valent Marty Dozier DO Work Phone: [facility] Payers Date Payer Category Payer Private Health Insurance [facility] AARP SUPPLEMENT [id number] 2022-Present [phone] [address] [place] [address] Indemnity [id number] 2004 Medicare [id number] 2004 Unknown 1959 Medicare [id number] 1959 Self-pay 1959 Unknown [id number] 1939 Unknown [id number] 2.16.840.1.608545.3.579.2 .593 1939 Unknown [id number] 2.16.840.1.391656.3.579.2 .593 1939 Unknown [id number] 2.16.840.1.884157.3.579.2 .593 1939 Unknown [id number] 2.16.840.1.390019.3.579.2 .593 1939 Unknown [id number] 2.16.840.1.006087.3.579.2 .593 1939 Unknown [id number] 2.16.840.1.185117.3.579.2 .593 1939 Unknown [id number] 2.16.840.1.766715.3.579.2 .593 1939 Unknown [id number] 2.16.840.1.222676.3.579.2 .593 1939 Unknown [id number] 2.16.840.1.196861.3.579.2 .593 1939 Unknown [id number] 2.16.840.1.832480.3.579.2 .593 1939 Unknown [id number] 2.16.840.1.846468.3.579.2 .593 1939 Unknown [id number] 2.16.840.1.274313.3.579.2 .593 1939 Unknown [id number] 2.16.840.1.265181.3.579.2 .593 1939 Unknown [id number] 2.16.840.1.123927.3.579.2 .593 1939 Unknown [id number] 2.16.840.1.616976.3.579.2 .593 1939 Unknown [id number] 2.16.840.1.350028.3.579.2 .593 1939 Unknown [id number] 2.16.840.1.866416.3.579.2 .593 1939 Unknown [id number] 2.16.840.1.683155.3.579.2 .593 1939 Unknown [id number] 2.16.840.1.322650.3.579.2 .593 1939 Unknown [id number] 2.16.840.1.536919.3.579.2 .593 1939 Unknown [id number] 2.16.840.1.652958.3.579.2 .593 1939 Unknown [id number] 2.16.840.1.021054.3.579.2 .593 1939 Unknown [id number] 2.16.840.1.549161.3.579.2 .593 1939 Unknown [id number] 2.16.840.1.398242.3.579.2 .593 1939 Unknown [id number] 2.16.840.1.129589.3.579.2 .593 1939 Unknown [id number] 2.16.840.1.834174.3.579.2 .196 1939 Unknown [id number] 2.16.840.1.349025.3.579.2 .196 1939 Unknown [id number] 2.16.840.1.827542.3.579.2 .196 1939 Unknown [id number] 2.16840.1.244778.3.579.2 .196 Social History Date Type Detail Facility Start: 05-14-2022 Tobacco smoking stat us NHIS Never smoked tobacco [facility] Start: 05-14-2022 Tobacco use and exposure Smoke less tobacco non-user [facility] Start: 05-14-2022 End: 09-21-2022 Alcohol intake Lifetime non-drinker (finding) [facility] Start: 1940 Sex Assigned At Not on file [facility] Start: 05-09-2022 End: 09-21-2022 History of Social function [facility] Start: 05-09-2022 End: 09-21-2022 Tobacco use panel [facility] Adult Depression Scr eening Assessment 2 [facility] Clinical Notes 09-30-2021 to 09-21-2022 Patient InstructionsCarolyn Vanegas MD - 09/21/2022 12:43 PM Naa Alves PA-C - 08/26/2022 11:45 AM EDTTmonika Bowman - 08/19/2022 4:06 PM EDT Note Date & Type Note Facility 09-21-2022 Note HNO ID: [id number] Author: Carolyn Vanegas MD Service: ? Author [...] Health Percentile 1 (more content not included)... [facility] 09-21-2022 Instructions Carolyn Vanegas MD - 09/21/2022 [...] at this time. documented in this encounter [facility] 09-21-2022 History of Present illness Narrative [...] 4 - Moderate documented in this encounter [facility] 08-26-2022 Note HNO ID: [id number] Author: Kassandra Alves PA-C Service: ? Author Type: Physician Middleware Architect Type: Progress Notes Filed: 08/26/2022 11:52 AM Note Text: Per Triage: Alexa Delgado is a 82 year old female that requests evaluation of spine. Per review, they have symptoms of lower back pain. Numbness/tingling right leg. Difficulty walking. Weakness Request: 1st available Referring provider: Galina Rogers MD Patient out of state: no 2nd opinion: no Prior spine surgery: yes 2006 [facility] Address: [address] [place] [address] CMT: PT Injections Tylenol Hydrocodone Studies (Reports [...] reviewed during the appt Kassandra Alves PA-C [facility] 08-26-2022 History of Present illness Narrative Per Triage: Alexa Delgado is a 82 year old female that requests evaluation of spine. Per review, they have symptoms of lower back pain. Numbness/tingling right leg. Difficulty walking. Weakness Request: 1st available Referring provider: Galina Rogers MD Patient out of state: no 2nd opinion: no Prior spine surgery: yes 2006 [facility] Address: [address] [place] [address] CMT: PT Injections Tylenol Hydrocodone Studies (Reports [...] Delgado Are you being referred by a [facility] or Pain Management Provider at [facility]? No If answer is YES please [...] facility where the MRI/CT/myelogram was completed: [facility] Address: [address] [place] [id number] MRI/CT/myelogram viewable in Epic: No If not, please provide [phone] to fax in imaging reports for review. [...] physical therapy was completed PT Injection [facility] Address: [address] [place] [address] Have you tried any other kinds of [...] where the surgery was completed: 2006 [facility] Address: [address] [place] [address] Additional Comments documented in this encounter [facility] 08-19-2022 Note HNO ID: [id number] Author: Micheal Bowman Service: ? Author Type: ? Type: Progress Notes Filed: 08/26/2022 11:52 AM Note Text: Patient name: Alexa Delgado Are you being referred by a [facility] or Pain Management Provider at [facility]? No If answer is YES please [...] facility where the MRI/CT/myelogram was completed: [facility] Address: [address] [place], [place] [id number] MRI/CT/myelogram viewable in Epic: No If not, please provide [phone] to fax in imaging reports for review. [...] physical therapy was completed PT Injection [facility] Address: [address] [place] [address] Have you tried any other kinds of [...] of where the surgery was completed: 2006 [facility] Address: [address] [place] [address] Additional Comments [facility] 07-16-2022 Note PROCEDURE: XR HIP RT 2 [...] authenticated by: HERMES MENDOZA Date: 2022-07-16 11:28 [facility] 05-14-2022 Note HNO ID: [id number] Author: Marty Dozier, DO Service: ? Author Type: Physician Type: Progress Notes Filed: 05/15/2022 10:02 PM Note Text: [facility] [place] [facility] - Medical Spine Initial [...] Ratio: R>L low back Current Treatment: Medications Sheridan 5-325 mg BID - helps Diclofenac 75 [...] but still has pain -01/28/22 Noemi Sequeira VALUE STREAM COACH: BL Lumbar erector spinae TPI (0.125% Marcaine, [...] ongoing as of 04/17/21 -03/08/21 Noemi Sequeira VALUE STREAM COACH: Left rhomboid TPI (0.125% Marcaine, 40 mg Kenalog) -02/03/21 LESI - moderate relief for 4 days Prior spine surgery: -2006 L4-5 Discectomy Previously treated by: -[facility], previously Dr. Niko Beckwith who is leaving the practice and going forward treatment will be with Dr. Porsha Mario. Last visit 05/13/22 Dr. 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 I could not appreciate any facet loading pain clinically on examination today. She has an evaluation at the [facility] tomorrow at the Spine Center. RECOMMENDATIONS: We will see the patient back in the office after she undergoes evaluation there to discuss her treatment plan thereafter. We will see the patient back in the office in approximately four weeks' time or sooner if needed. PMH: Lumbar scoliosis Depression on Negrita (more content not included)... [facility] 05-14-2022 History of Present illness Narrative Images from the original note were not included. [facility] [place] [facility] Initial [...] Ratio: R>L low back Current Treatment: Medications Sheridan 5-325 mg BID - helps Diclofenac 75 [...] but still has pain -01/28/22 Noemi Sequeira VALUE STREAM COACH: BL Lumbar erector spinae TPI (0.125% Marcaine, [...] ongoing as of 04/17/21 -03/08/21 Noemi Sequeira VALUE STREAM COACH: Left rhomboid TPI (0.125% Marcaine, 40 mg Kenalog) -02/03/21 LESI - moderate relief for 4 days Prior spine surgery: -2006 L4-5 Discectomy Previously treated by: -[facility], previously Dr. Niko Beckwith who is leaving the practice and going forward treatment will be with Dr. Porsha Mario. Last visit 05/13/22 Dr. 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 I could not appreciate any facet loading pain clinically on examination today. She has an evaluation at the [facility] tomorrow at the Spine Center. RECOMMENDATIONS: [...] reviewed 04/04/22 CT abd/pelvis with IV contrast, [facility], report: Abdominal wall: Old healed left pelvis fractures. Degenerative changes and scoliosis of the lumbar spine. IMPRESSION: No acute abdominal pathology. No acute inflammatory process. No obstructing urinary tract stone. No evidence for bowel obstruction. 11/15/21 XR abd, [facility], report: No acute osseous abnormality. There is moderate dextrocurvature of the lumbar spine. 05/08/2021 XR right hip/pelvis, [facility], report: Rotatory dextro scoliosis of the [...] TIME: 3:15 PM documented in this encounter [facility] 05-13-2022 Note CONSULTATION CONSULTATION DATE: 05/13/2022 [...] mg at h.s., diclofenac 75 mg b.i.d., Sheridan 5 mg b.i.d. EXAM: Notable for the [...] today. She has an evaluation at the [facility] tomorrow at the Spine Center. RECOMMENDATIONS: We will see the patient back in the office after she undergoes evaluation there to discuss her treatment plan thereafter. We will see the patient back in the office in approximately four weeks' time or sooner if needed. [facility] 04-06-2022 Note CONSULTATION CONSULTATION DATE: 04/06/2022 [...] to kidney dysfunction also. The patient takes Sheridan, however, is very controlled and limits it to the point of detriment. Education was done. The patient was instructed to take the Sheridan to a b.i.d. to t.i.d. basis. The [...] b.i.d. basis. The patient may increase the Sheridan to 5/325 t.i.d. We will schedule the [...] the procedure. CC: Galina Rogers M.D. [facility] 03-11-2022 Note CONSULTATION CONSULTATION DATE: 03/11/2022 [...] gave improvement for 24 hours. Medications include Sheridan 5/325 b.i.d., diclofenac 75 mg b.i.d., citalopram [...] back pain. PLAN: We will refill her Sheridan 5/325 b.i.d. We will prescribe her Buderer cream with gabapentin, ketorolac and prilocaine/lidocaine to be placed over her right knee. We will trial Requip 0.25 mg q.h.s. We will see the patient in the clinic in three months' time unless otherwise indicated. Patient agrees with the plan. [facility] 01-28-2022 Note CONSULTATION CONSULTATION DATE: 01/28/2022 [...] daily which decreases her pain. Medications include Sheridan 5/325 b.i.d., Flexeril 5 mg b.i.d., diclofenac [...] does consent to. We will refill the Sheridan 5/325 b.i.d. We will pre-authorize for a right genicular nerve block under fluoroscopy. Patient will follow up in the clinic thereafter. [facility] 01-28-2022 Note CONSULTATION PROCEDURE DATE: 01/28/2022 [...] be followed up in the office. [facility] 12-31-2021 Note CONSULTATION CONSULTATION DATE: 12/31/2021 [...] Current medications include diclofenac 75 mg b.i.d., Sheridan 5/325 b.i.d., citalopram, Flexeril and multivitamin regimen. The patient does state that she breaks her Sheridan in half and the most she takes [...] and would like to move forward. [facility] 09-30-2021 Note CONSULTATION CONSULTATION DATE: 09/30/2021 This is a very [id number] female accompanied by her returning to the [...] Current medications include diclofenac 50 mg b.i.d., Sheridan 5/325 b. i.d. and Tylenol. She does [...] at 25 mg q.h.s. Refill for her Sheridan 5/325 b.i.d. will be sent as well. The patient is to continue with her vitamin regimen which she is currently compliant with, as well as heat application and pool exercises. The patient will be followed up in the office in three months' time unless otherwise indicated. The patient agrees with the plan of care. [facility] Evaluation note Diagnosis Chronic bilateral low back pain with right-sided sciatica- Primary Back pain, lumbosacral Lumbago Chronic sacroiliac joint pain Disorders of sacrum Lumbar spondylosis Lumbosacral spondylosis without myelopathy Scoliosis of lumbar spine, unspecified scoliosis type [facility] Spinal stenosis, lumbar region with neurogenic claudication- Primary Spondylolisthesis, lumbar region Other idiopathic scoliosis, lumbar region [facility] Diagnosis Obesity, Class I, BMI 30-34.9- Primary Obesity, unspecified Spinal stenosis, lumbar region with neurogenic claudication documented in this encounter [facility] Summary Purpose Family History No Family History Records FoundNo Family History Records FoundNo Family History Records FoundNo Family History Records FoundNo Family History Records Found Advance Directives No Advanced Directives Records FoundNo Advanced Directives Records FoundNo Advanced Directives Records FoundNo Advanced Directives Records FoundNo Advanced Directives Records Found Reason for Referral Specialty Diagnoses / Procedures Referred By Contac t Referred To Contact [facility] [place] Diagnoses Spinal stenosis, lumbar region with neurogenic claudication Procedures CONSULT TO [facility]) OFFICE/OUTPATIENT [facility] 60-74 MINUTES Carolyn Vanegas MD [address] [place] [address] Referral ID Status Reason Start Date Expiration Date Visits Requested Visits Authorized [id number] Pending Review PCP Requested Referral 09/21/2022 09/21/2023 1 1 Additional Source Comments INFORMATION SOURCE (unrecogn ized section and content) DATE CREATED AUTHOR 09/13/2017 [facility] DATE CREATED AUTHOR AUTHOR'S ORGANIZ ATION 12/13/2020 [facility] DATE CREATED AUTHOR AUTHOR'S ORGANIZ ATION 07/30/2022 [facility] DATE CREATED AUTHOR AUTHOR'S ORGANIZ ATION 09/22/2022 [facility] DATE CREATED AUTHOR AUTHOR'S ORGANIZ ATION 01/21/2023 [facility] Source Comments (unrecognize d section and content) In the event this informatio n is protected by the Federal Confidentiality of Alcohol and Drug Abuse Patient Records regulations: The Federal rules restrict any use of the information to criminally investigate or prosecute any alcohol or drug abuse patient[facility] the event this information is protected by the Federal Confidentiality of Alcohol and Drug Abuse Patient Records regulations: The Federal rules restrict any use of the information to criminally investigate or prosecute any alcohol or drug abuse patient.[facility] the event this information is protected by the Federal Confidentiality of Alcohol and Drug Abuse Patient Records regulations: The Federal rules restrict any use of the information to criminally investigate or prosecute any alcohol or drug abuse patient.[facility] Reason for Visit (unrecogniz ed section and content) Reason Comments New Patient Evaluation Low Back Pain Reason Comments New Patient Care Teams (unrecognized sec tion and content) 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 Relationship Specialty Start Date End Date Galina Rogers MD [address] [place] [address] PCP - General Family Medicine 05/14/22 Arsh De Leon Jr., DO [address] [facility] [address] [place] [address] Referring Orthopedics 05/03/22 Porsha Mario [address] [phone] Pain Management 05/14/22 Arsh De Leon Jr., DO [address] [place] [address] Orthopedics 05/14/22 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 Relationship Specialty Start Date End Date Galina Rogers MD [address] [facility] [place] [address] PCP - General Family Medicine 05/14/22 Arsh De Leon Jr., DO [address] [facility] [address] [place] [address] Referring Orthopedics 05/03/22 Porsha Mario [address] [place] [phone] Pain Management 05/14/22 Arsh De Leon Jr., DO [address] [place] [place] [address] Orthopedics 05/14/22 Galina Rogers MD [address] [place] [facility] [place] [address] Referring Family Medicine 08/11/22 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 Relationship Specialty Start Date End Date Galina Rogers MD [address] [place] [facility] [place] [address] PCP - General Family Medicine 05/14/22 Arsh De Leon Jr., DO [address] [facility] [address] [place] [address] Referring Orthopedics 05/03/22 Porsha Mario [address] [phone] Pain Management 05/14/22 Arsh De Leon Jr., DO [address] [facility] [address] [place] [address] Orthopedics 05/14/22 aGlina Rogers MD [address] [facility] [place] [phone] Referring Family Medicine 08/11/22 FOR RECORDS PERTAINING [...] BE BASED ON THE PRIMARY CLINICAL RECORDS. [facility]. provides no warranty or guarantee of the accuracy or completeness of information in this document.
[2023-05-23 10:25] VITALS: BP 144/74; PULSE 83; TEMP 36.7; O2SAT 99
[2023-05-23 10:55] VITALS: BP 151/70; PULSE 83; O2SAT 96
[2023-05-23] MEDS: IOHEXOL 240 MG/ML - 10 ML VIAL INJ (10:56)
[2023-05-23] MEDS: BUPIVACAINE HCL 0.25% PF 25 MG/10 ML VIAL INJ (10:56)
[2023-05-23] MEDS: 0.9 % SODIUM CHLORIDE 10 ML INJ (10:56)
[2023-05-23] MEDS: LIDOCAINE HCL 2% PF 100 MG/5 ML VIAL 4 ML INJ (10:57)
[2023-05-23] MEDS: TRIAMCINOLONE ACETONIDE 40 MG/ML VIAL 80 MG INJ (10:57)
[2023-05-23 10:58] VITALS: BP 144/71; PULSE 86; O2SAT 97
--- NOTE | 2023-05-23 10:58 | P.ON_ITS ---
Date of procedure: 05/23/23 Pre-op diagnosis: Lumbar stenosis with neurogenic claudication Post-op diagnosis: same as pre-op Procedure: Procedure: Right L4-5, L5-S1 transforaminal epidural steroid injection Medications: Bupivacaine 0.25% 2cc, lidocaine 2% 1cc, kenalog 80mg The patient was seen and examined in the preoperative holding area.? Informed consent was obtained and placed on the chart.? Patient was brought to the medical procedure unit and placed in the prone position where a timeout was completed verifying the correct patient, procedure site, position, and planned special equipment using sterile aseptic technique.? Under direct fluoroscopic visualization a 25-gauge Quincke tipped spinal needle was advanced to the designated neural foramen where contrast dye was injected to show adequate spread.? The needle was inserted at level right L4-5. There was no evidence of vascular or adverse uptake.? Epidural spread was appreciated.? The above- mentioned injectate was then placed in a 1.5 mL aliquot preceded by negative aspiration.? The needle was removed. The needle was inserted and the procedure repeated at level right L5-S1.? The surgery site was covered.? Patient was taken to the postprocedural recovery area and monitored for an appropriate length of time before found suitable for discharge in the accompaniment of a responsible adult. Anesthesia: Local Surgeon: Lyn Quiñones Pathology: none sent Condition: stable Disposition: no change
--- NOTE | 2023-05-23 11:05 | PC.NURSE ---
Pt unable to lift right leg when atempting to sit at side of bed. Pt remained in bed and will continue to monitor.
== END 2023-05-23 11:45 | disposition home or self-care (01) ==
PROVIDERS: PCP Family Medicine; Visit Provider Anesthesiology
DX: M48.062 Spinal stenosis, lumbar region with neurogenic claudication (principal)
CPT/HCPCS: 64483; 64484; Q9966

== ENCOUNTER 2023-06-06 09:49 | Day surgery (SDC) | payer MEDICARE, SELFPAY ==
[2023-06-06 10:35] VITALS: BP 166/85; PULSE 85; TEMP 36.9; O2SAT 95
[2023-06-06] MEDS: TRIAMCINOLONE ACETONIDE 40 MG/ML VIAL INJ (11:13)
[2023-06-06] MEDS: BUPIVACAINE HCL 0.25% PF 25 MG/10 ML VIAL INJ (11:13)
[2023-06-06] MEDS: IOHEXOL 240 MG/ML - 10 ML VIAL INJ (11:13)
[2023-06-06] MEDS: LIDOCAINE HCL 2% PF 100 MG/5 ML VIAL INJ (11:13)
[2023-06-06 11:14] VITALS: BP 171/77; BP 177/79; PULSE 77; PULSE 79; O2SAT 97; O2SAT 99
--- NOTE | 2023-06-06 11:23 | P.ON_ITS ---
Date of procedure: 06/06/23 Pre-op diagnosis: Right sacroiliitis Post-op diagnosis: same as pre-op Procedure: Procedure: Right sacroiliac joint injection Medications: Bupivacaine 0.25% 3cc, kenalog 40mg After informed consent was obtained, the patient was brought to the medical p rocedure unit and placed in the prone position, when a timeout was completed verifying correct patient, procedure, site, positioning, implant, and/or special equipment.? The skin overlying the area was prepped and draped in standard sterile fashion using alcohol.? A 25-gauge needle was inserted towards the right sacroiliac joint under direct fluoroscopic imaging.? Needle tip was advanced until the joint was encountered.? We instilled a total of 3 mL of solution.? Postoperatively needles were removed.? The patient tolerated the procedure well without complication.? The patient reported reduction in pain symptoms postoperatively. Anesthesia: Local Surgeon: Lyn Quiñones Pathology: none sent Condition: stable Disposition: no change
== END 2023-06-06 11:21 | disposition home or self-care (01) ==
PROVIDERS: PCP Family Medicine; Visit Provider Anesthesiology
DX: M46.1 Sacroiliitis, not elsewhere classified (principal)
CPT/HCPCS: 27096; Q9966

== ENCOUNTER 2023-06-22 13:19 | Outpatient (OUT) | payer MEDICARE, SELFPAY ==
--- NOTE | 2023-06-22 13:55 | P.CN_ITS ---
Consult Note: HPI Data of Consult Patient: known to practice within the last 3 years Requesting Physician: Vivian Meza NP Primary Care Provider: Luis Rogers MD Consult Narrative Reason for consult: procedure f/u Narrative: Alexa Delgado a pleasant 82 year old female presents for evaluation and management of chronic pain. Patient rating pain 4/10 today. Patient has found significant improvement in pain and functional ability with past procedures and current medication regimen. Pain still increases to moderate to severe with twis ting, pulling, pushing, walking, stairs, and reaching up. Pain decreased with lying down, heat, and medications. Denies side effects from current medication regimen. Recent right L4/5 L5/S1 and right SIJ injection providing 50% improvement ongoing. cc:: CC: Vivian Meza NP Review of Systems ROS Status of ROS 10 or more systems reviewed and unremark able except as noted in history and below Musculoskeletal Reports: back pain, extremity pain and joint pain PFSH PFSH Medical History Pelvic fracture ?S32.9XXA - Fracture of unspecified parts of lumbosacral spine and pelvis, initial encounter for closed fracture (ICD-10) TIA (transient ischemic attack) ?G45.9 - Transient cerebral ischemic attack, unspecified (ICD-10) Closed fracture of coccyx ?S32.2XXA - Fracture of coccyx, initial encounter for closed fracture (ICD- 10) Osteoarthritis ?M19.90 - Unspecified osteoarthritis, unspecified site (ICD-10) H/O pyelonephritis ?Z87.448 - Personal history of other diseases of urinary system (ICD-10) Syncope ?R55 - Syncope and collapse (ICD-10) Generalized weakness ?R53.1 - Weakness (ICD-10) Dizziness ?R42 - Dizziness and giddiness (ICD-10) Surgical History Pain management ?R52 - Pain, unspecified (ICD-10) H/O bladder repair surgery ?Z98.890 - Other specified postprocedural states (ICD-10) H/O breast surgery ?Z98.890 - Other specified postprocedural states (ICD-10) H/O knee surgery ?Z98.890 - Other specified postprocedural states (ICD-10) H/O foot surgery ?Z98.890 - Other specified postprocedural states (ICD-10) History of right knee joint replacement ?Z96.651 - Presence of right artificial knee joint (ICD-10) History of YAG laser capsulotomy of lens ?Z98.49 - Cataract extraction status, unspecified eye (ICD-10) Hx laparoscopic cholecystectomy ?Z90.49 - Acquired absence of other specified parts of digestive tract (ICD- 10) H/O: hysterectomy ?Z90.710 - Acquired absence of both cervix and uterus (ICD-10) History of arthroscopic knee surgery ?Z98.890 - Other specified postprocedural states (ICD-10) H/O discectomy ?Z98.890 - Other specified postprocedural states (ICD-10) H/O dilation and curettage ?Z98.890 - Other specified postprocedural states (ICD-10) History of appendectomy ?Z90.49 - Acquired absence of other specified parts of digestive tract (ICD- 10) Hx of tonsillectomy ?Z90.89 - Acquired absence of other organs (ICD-10) Social History Previous occupational history: Retired, , lives at home Meds Home Medications and Allergies Home Medications ?Medication ?Instructions ?Recorded ?Confirmed ?Type B complex with vitamin 1 cap PO DAILY 07/26/22 06/06/23 History Z-qurheopgc-sstg capsule Buderer compound cream topical DAILY 07/26/22 History acetaminophen 500 mg tablet 1,000 mg PO BID pain 07/26/22 06/06/23 History (Tylenol Extra Strength) aspirin 81 mg tablet,delayed 81 mg PO DAILY 07/26/22 06/06/23 History release blue emu 1 g topical DAILY 07/26/22 06/06/23 History calcium carb-vit D3-minerals 600 1 tab PO DAILY 07/26/22 06/06/23 History mg calcium-400 unit tablet capsaicin 0.025 % topical patch 1 patch topical DAILY pain 07/26/22 06/06/23 History (Salonpas-Hot) citalopram 10 mg tablet 10 mg PO DAILY 07/26/22 06/06/23 History fexofenadine 180 mg tablet 180 mg PO DAILY 07/26/22 06/06/23 History (Benita Allergy) flaxseed oil 1,000 mg capsule 1,000 mg PO DAILY 07/26/22 06/06/23 History glucosamine 750 iw-juqjud-wco 2-C 1 tab PO DAILY 07/26/22 06/06/23 History 30 mg-D3 1,000 unit-maida 1 mg tablet (Zfulbuszpfv-Pwgjtpxoyau-UQN + vitD) isosorbide mononitrate 30 mg 30 mg PO DAILY 07/26/22 06/06/23 History tablet,extended release 24 hr levothyroxine 75 mcg capsule 75 mcg PO DAILY 07/26/22 06/06/23 History liothyronine 25 mcg tablet 25 mcg PO DAILY 07/26/22 06/06/23 History (Cytomel) melatonin 3 mg capsule 3 mg PO DAILY 07/26/22 06/06/23 History metoprolol succinate 50 mg 50 mg PO BID 07/26/22 06/06/23 History tablet,extended release 24 hr multivitamin 1 tab PO DAILY 07/26/22 06/06/23 History nitroglycerin 0.4 mg sublingual 0.4 mg sublingual Q5M PRN chest 07/26/22 06/06/23 History tablet pain meclizine 25 mg tablet 25 mg PO QID PRN dizzy #20 tabs 08/10/22 06/06/23 Rx hydrocodone 5 mg-acetaminophen 325 1 tab PO BID PRN pain #60 tabs 10/20/22 06/06/23 Rx mg tablet cyclobenzaprine 10 mg tablet 10 mg PO BEDTIME 04/20/23 06/06/23 History furosemide 40 mg tablet 40 mg PO DAILY 04/20/23 06/06/23 History memantine 21 mg capsule 21 mg PO Q24H 04/20/23 06/06/23 History sprinkle,extended release 24hr denosumab 60 mg/mL subcutaneous mg subcut .Q6MONS 04/27/23 History syringe (Prolia) diclofenac sodium 50 mg 50 mg PO BID 04/27/23 06/06/23 History tablet,delayed release hydrocodone 5 mg-acetaminophen 325 1 tab PO TID PRN pain #90 tabs 06/06/23 Rx mg tablet Allergies Allergy/AdvReac Type Severity Reaction Status Date / Time Penicillins Allergy Severe Hives Verified 06/06/23 10:47 codeine AdvReac Intermediate Dizziness Verified 06/06/23 10:47 fluconazole [From Diflucan] AdvReac Intermediate Verified 06/06/23 10:47 quinine [From Quinamm] AdvReac Mild Headache Verified 06/06/23 10:47 decongest multi-action AdvReac Mild Uncoded 06/06/23 10:47 Exam Constitutional Documenting provider has reviewed patient's vital signs: yes Common normals: no apparent distress, oriented x3, healthy appearing, alert and well nourished General appearance: cooperative HENMT Common normals: normocephalic, hearing grossly normal bilaterally and moist oral mucous membranes Head and scalp: normocephalic Eye Common normals: PERRL Pupil: PERRL Neck & C-Spine Common normals: full ROM General: normal visual inspection Chest Common normals: inspection of chest normal Respiratory Common normals: normal respiratory effort, no retractions and no use of accessory muscles Back & Pelvis Lumbar spine/lower back: ROM limited, pain with ROM and straight leg raise negative bilaterally Sacroiliac joints: SI joint(s) abnormal (mild pain with thigh thrust, fabelizabeth manzanolens right, improved) Extremity Common normals: normal to inspection Right lower extremity: hip joint Other: no pain with internal and external rotation of right hip Neuro Common normals: oriented x3, CN's II-XII intact bilaterally, moves all extremities, no focal motor deficits, no sensory deficits noted and deep tendon reflexes 2+ bilaterally Sensorium/orientation: alert Gait (neuro): antalgic and assistive device used walker Motor exam: strength 5/5 throughout and no movement abnormalities noted Psych Common normals: mental status grossly normal, thought process normal, cooperative, affect normal, speech normal and activity/motor behavior normal Speech: normal speech Thought process: normal thought process Results Additional Findings Additional findings: If on a controlled substance or opioids, I have checked an [place] report on this patient and there are no aberrancies noted in the prescribing history.??If on a controlled substance or opioid a drug screen was completed and reviewed within the last year, and if there has not been a drug screen completed we ordered one today to monitor higher risk, state monitored pain medication use. As part of providing excellent, safe, comprehensive care, the following was completed at our patient's visit: 1. A medication reconciliation and review to ensure accurate knowledge of current/active medications, including asking our patients to inform us about any cusz-pwd-bpjwsza medications or herbal remedies/nutritional supplements/alternative remedies. 2. A review to specifically ensure our patients have had annual screening for screening for depression, screening for tobacco use, and screening for unhealthy alcohol use. For concerning screenings had a discussion with the patient, provided patient education, and recommended follow-up with primary care provider when appropriate. If patient noted with a risk of falling, they received education on strength, gait, and balance training to prevent future risk of falling. Assessment and Plan Assessment and Plan (1) Lumbar stenosis with neurogenic claudication: (2) Chronic, continuous use of opioids: Assessment and Plan: I feel these medications are improving the patient's quality of life and allow them to tolerate activities of daily living as well as participate in recreational activity.? The patient does not report intolerable side effects. The patient is NOT opioid naive and non-pharmacologic and non-opioid treatment has failed to significantly relieve the patient's pain and improve functionality. The patient has a diagnosis that is related to a somatic or visceral pain etiology. ? ?? I reviewed with the patient the potential risks and side effects with the use of? opioid medications including but not limited to respiratory depression,? sedation, and even . I verified the patient has access to naloxone should? these effects occur. I advised the patient to avoid the use of any other? sedation substances including alcohol, THC, and benzodiazepines while? taking opioid medications due to the risk of compounding side effects and? detrimental outcomes. I reviewed the [employer], pain treatment agreement, urine? drug screen, and opioid start talking forms. The patient was advised to let? their family know they had Naloxone in case they would need to administer? the medication.? ?? A drug screen was completed within the last year, and no aberrancies were noted regarding their use of controlled substances. The patient understands they are subject to the terms and conditions of the pain contract that they have signed. ? ?? I have checked an [place] report on this patient today and there are no aberrancies noted in the prescribing history.? (3) Sacroiliitis: (4) Lumbar degenerative disc disease: (5) Lumbar spondylosis: Plan continue PT/water therapy decrease diclofenac 50mg BID PRN, risks vs benefits discussed. 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
== END 2023-06-22 13:20 | disposition home or self-care (01) ==
LOC: PM 13:20
PROVIDERS: PCP Family Medicine; Visit Provider Nurse Practitioner
DX: M48.062 Spinal stenosis, lumbar region with neurogenic claudication (principal); Z79.891 Long term (current) use of opiate analgesic; M46.1 Sacroiliitis, not elsewhere classified; M51.36 Other intervertebral disc degeneration, lumbar region; M47.816 Spondylosis without myelopathy or radiculopathy, lumbar region
CPT/HCPCS: G0463

== ENCOUNTER 2023-08-12 10:47 | Outpatient (OUT) | payer MEDICARE, SELFPAY ==
[2023-08-12 11:20] LABS: Hematocrit 32.7 % (36.0-48.0); Hemoglobin 10.7 g/dL (12.0-16.0); Mean Corpuscular HGB Conc 32.7 g/dL (29.9-35.2); Mean Corpuscular Hemoglobin 31.6 pg (26.7-34.0); Mean Corpuscular Volume 96.5 fL (81.0-99.0); Mean Platelet Volume 9.1 fL (9.5-13.5); Platelet Count 223 10^3/uL (150-450); Red Blood Count 3.39 10^6/uL (4.20-5.40); Red Cell Distribution Width 14.2 % (11.0-15.0); White Blood Count 2.8 10^3/uL (4.0-11.0)
[2023-08-12 11:38] LABS: INR 0.94; Partial Thromboplastin Time 29.8 sec (22.3-36.2)
[2023-08-12 12:51] LABS: Alanine Aminotransferase 27 U/L (14-59); Albumin Level 3.3 g/dL (3.4-5.0); Alkaline Phosphatase 64 U/L (46-116); Anion Gap 8.2; Aspartate Amino Transferase 23 U/L (15-37); Bilirubin Total 0.3 mg/dL (0.2-1.0); Calcium 9.2 mg/dL (8.5-10.1); Carbon Dioxide 32.9 mmol/L (21.0-32.0); Chloride 95 mmol/L (98-107); Estimated GFR (African America >60 (>=60); Estimated GFR (Non-African Ame 53 (>=60); Globulin 3.3 g/dL; Glucose 78 mg/dL (74-106); Potassium 4.1 mmol/L (3.5-5.1); Sodium 132 mmol/L (136-145); Total Protein 6.6 g/dL (6.4-8.2)
[2023-08-12 13:23] LABS: Segmented Neut Absolute Manual 1.62 10^3/uL (1.4-6.5)
[2023-08-12 13:24] LABS: Lymphocytes Absolute Manual 0.33 10^3/uL (1.20-3.80); Monocytes Absolute Manual 0.84 10^3/uL (0.30-0.80)
== END 2023-08-12 10:48 | disposition home or self-care (01) ==
LOC: LAB 10:48
PROVIDERS: PCP Family Medicine; Visit Provider Family Medicine
DX: R23.3 Spontaneous ecchymoses (principal)
CPT/HCPCS: 36415; 80053; 85007; 85027; 85610; 85730

== ENCOUNTER 2023-08-18 11:59 | Outpatient (OUT) | payer MEDICARE, SELFPAY ==
--- OUTSIDE RECORDS SUMMARY | 2023-08-18 12:11 | XMS_ITS | CCD ---
Author Organization [facility] Care Team Providers Care Dental Patient Coordinator Name Role Phone PHYSICIAN, DEFAULT Unavailable Unavailable PHYSICIAN, DEFAULT Unavailable Unavailable Haley Bright DO, George Cajetan Unavailable Galina Rogers MD Primary Care Provider Lakshmipathy, Narendranath Unavailable Haley Bright DO, George Cajeaydee Unavailable ESTELA ., DR MOJICA Primary Care Unavailable HOY ., DR MOJICA Attending Unavailable HOY ., DR MOJICA Consulting Unavailable HOY ., DR MOJICA Admitting Unavailable LAKSHMIPATHY ., PORSHA Consulting Laura vailable LAKSHMIPATHY ., NARENDRANATH Admitting Laura vailable LAKSHMIPATHY ., PORSHA Attending Laura vailable HOY ., DR MOJICA Primary Care Unavailable BECKWITH ., DR NIKO Austin Consulting Unavailable BECKWITH ., DR NIKO Austin Admitting Unavailable BECKWITH ., DR NIKO Austin Attending Unavailable ESTELA ., DR MOJICA Primary Care Unavailable NATI FARAH Consulting Unavailable HOY ., DR MOJICA Primary Care Unavailable HOY ., DR MOJICA Attending Unavailable HOY ., DR MOJICA Consulting Unavailable HOAshlie ., DR MOJICA Admitting Unavailable REJI, DR HERMES Jean Baptiset Consulting Unavailable HOAshlie ., DR MOJICA Primary Care Unavailable HOY ., DR MOJICA Attending Unavailable HOY ., DR MOJICA Consulting Unavailable HOY ., DR MOJICA Admitting Unavailable HOY ., DR MOJICA Primary Care Unavailable NOEMI HAWK Consulting Unavailable BECKWITH ., DR NIKO Austin Attending Unavailable BECKWITH ., DR NIKO Austin Admitting Unavailable LAKSHMIPATHY ., NARROSA Consulting Laura vailable LAKSHMIPATHY ., NARENDRANATH Admitting Laura vailable LAKSHMIPATHY ., NARENDRANATH Attending Laura vailable HOY ., DR MOJICA Primary Care Unavailable HOY ., DR MOJICA Primary Care Unavailable SEQUEIRA ., NOEMI Consulting Unavailable BECKWITH ., DR NIKO Austin Attending Unavailable BECKWITH ., DR NIKO Austin Admitting Unavailable HOY ., DR MOJICA Primary Care Unavailable BECKWITH ., DR NIOK Austin Attending Unavailable BECKWITH ., DR NIKO [...] ., PORSHA Consulting Laura vailable LAKSHMIPATHY ., NARENDRANATH Admitting Laura vailable LAKSHMIPATHY ., NARENDLAYATH Attending Laura vailable LAKSHMIPATHY ., PORSHA Consulting Laura vailable HOY ., DR MOJICA Primary Care Unavailable LAKSHMIPATHY ., NARENDLAYATH Admitting Laura vailable LAKSHMIPATHY ., NARENDRANATH Attending [...] Unavailable SANTOS ., MR CHANTALE Consulting Unavailable REINECK, DR PEPE De La Rosa Attending Unavailabl [...] BECKWITH ., DR NIKO Austin Admitting Unavailable HOAshlie ., DR MOJICA Primary Care Unavailable MELO ., ROGE Admitting Unavailable MELO ., ROGE Attending Unavailable ESTELA ., DR MOJICA Primary Care Unavailable DORY, DR KRANTHI Gaona Consulting Unavailable MELO ., ROGE Consulting Unavailable FAWWAD, SEGURA H Admitting Unavailable FAWSHAIKH LUA H Attending Unavailable ESTELA ., DR MOJICA Primary Care Unavailable SAMSA ., BALTAZAR Consulting Unavailable MELO ., ROGE Consulting Unavailable FAWWAD, SEGURA H Consulting Unavailable LINARES, JARET Consulting Unavailable AA, AA Consulting Unavailable ESTELA ., DR MOJICA Primary Care Unavailable HOY ., DR MOJICA Attending Unavailable HOY ., DR MOJICA Admitting Unavailable HOY ., DR MOJICA Primary Care Unavailable HOY ., DR MOJICA Admitting Unavailable HOY ., DR MOJICA Attending Unavailable HOY ., DR MOJICA Consulting Unavailable HAUBSTADT, DR HERMES Jean Baptiste Consulting Unavailable BECKWITH ., DR NIKO Austin Attending Unavailable BECKWITH ., DR NIKO Austin Admitting Unavailable SEQUEIRA ., NOEMI Consulting Unavailable ESTELA ., DR MOJICA Primary Care Unavailable Haley Bright, Colette MOORE Unavailable Galina Rogers MD Unavailable GALINA ROGERS Primary Care Unavailable CAROLYN VANEGAS Attending Unavailable MARTY DOZIER Attending Unavailable Gimiguel MEANS, Andrius Adams Attending Unavailable Ishmael MEANS, Andrius Bryan Attending Unavailable Ishmael MEANS, Andrius Bryan Attending Unavailable Ishmael MEANS, Andrius Adams Attending Unavailable Ishmael MEANS, Andrius Adams Attending Unavailable Ishmael MEANS, Andrius Adams Attending Unavailable JR. DE LEON GEORGE C Attending Unavaila ble JR. DE LEON GEORGE C Referring Unavaila ble Allergies Allergy Classification Reported Allergen(s) Allergy Type Date of Onset Reaction(s) Facility (4 sources) Codeine; Translations: [CODEINE] Drug Allergy 3 Unknown [facility] (4 sources) Penicillins; Translations: [PENICILLINS] Drug Allergy 3 Unknown [facility] (4 sources) pregabalin; Translations: [PREGABALIN] Drug Allergy 3 Intolerance [facility] Work Phone: (4 sources) Propoxyphene; Translations: [PROPOXYPHENE] Drug Allergy 3 Rash, Unknown [facility] (4 sources) quiNINE; Translations: [QUINAMM] Drug Allergy 3 GI Upset [facility] (5 sources) Decongest Multi-Action; Translations: [Decongest Multi-Action] Drug Allergy 3 Other: See Comments [facility] (1 source) Acetaminophen / HYDROcodone Drug Allergy [facility] (2 sources) Codeine Drug Allergy 3 [facility] (1 source) Fluconazole Drug Allergy [facility] (2 sources) Penicillins Drug allergy (disorder) 3 [facility] (1 source) pregabalin Drug Allergy [facility] (2 sources) Propoxyphene Drug Allergy [facility] (1 source) quiNINE Drug Allergy [facility] Medications Completed/Discontinued Medications Medication Drug [...] above: Take by mouth twice daily. capsaicin 0.00980 mg/mg medicated patch (3 sources) Capsaicin (SALONPAS-HOT) [...] on above: Take 1,000 mg by juan once daily. liothyronine sodium 0.025 mg oral [...] oral tablet (3 sources) beta-Adrenergic Moshe Start: take 1 tablet by mouth twice daily [...] Onset: 11-13-2021 Episodic Other aftercare (1 source) skilled nursing (current) use of aspirin; Translations: [ASSISTED CURRENT USE OF ASPIRIN] Onset: 04-06-2022 Episodic Other aftercare (1 source) Other intermission coordinator (current) drug therapy; Translations: [OTH ASSISTED CURRENT DRUG THERAPY] Onset: 04-06-2022 Episodic Other [...] Test Name Value Interpretation Reference Range Facility [facility] 09-21-2022 CNOV Office Visit ([facility] ) ALEXA DELGADO ([id number]) 1940 F Date Time Provider Department 09/21/22 1:00 PM CAROLYN VANEGAS [facility] During your visit today, we recorded [...] Percentile 2 (more content not included)... Normal [facility] XR LSPINE 2_3 VIEWSon 2022 XR LSPINE [...] by: HERMES MENDOZA Date: 2022-07-16 11:34 Normal [facility] CNOVon 05-14-2022 CNOV Office Visit ([facility] ) ALEXA DELGADO ([id number]) 1940 F Date Time Provider Department 05/14/22 2:30 PM MARTY DOZIER [facility] During your visit today, we recorded the following information about you: Pulse Blood pressure Weight Height 72/minute 158/87 76.4 kg 1.524 m Marty Dozier DO 05/15/2022 10:02 PM Signed [facility] Neurological [facility] Spine Initial [...] Ratio: R>L low back Current Treatment: Medications [place] 5-325 mg BID - helps Diclofenac 75 [...] but still has pain -01/28/22 Noemi Sequeira PERSONNEL ASSISTANT: BL Lumbar erector spinae TPI (0.125% Marcaine, [...] ongoing as of 04/17/21 -03/08/21 Noemi Sequeira PERSONNEL ASSISTANT: Left rhomboid TPI (0.125% Marcaine, 40 mg Kenalog) -02/03/21 LESI - moderate relief for 4 days Prior spine surgery: -2006 L4-5 Discectomy Previously treated by: -[facility], previously Dr. Niko [...] today. She has an evaluation at the [facility] tomorrow at the [facility]. RECOMMENDATIONS: We will see the pat (more content not included)... Normal [facility] CULTURE URINEon 04-05-2022 CULTURE URINE Culture Observations : LIGHT GROWTH OF MIXED GENITAL ALANIS. NO POTENTIAL PATHOGENS SEEN. Normal [facility] Comment on above: Performed By: #### U RCX ####[facility] [address] [place] [address]Dr. Grace Abdul UA RANDOM W/MICROSCOPICon BACTERIA NONE SEEN Normal NONE SEEN [facility] Comment on above: Performed By: #### U AMIC ####[facility] [address] [place] [address]Dr. Grace Abdul Bilirubin Ql (U) Negative Normal NEGATIVE [facility] Comment on above: Performed By: #### U AMIC ####[facility] [address] [place] [address]Dr. Grace Abdul CAST NONE SEEN Normal NONE SEEN [facility] Comment on above: Performed By: #### U AMIC ####[facility] Toccty[address] [place], [place] [address]Dr. Grace Abdul Clarity (U) CLEAR Normal CLEAR [facility] Comment on above: Performed By: #### U AMIC ####[facility] [address]xdkx[address] [place], [place] [address]Dr. Grace Abdul Color (U) YELLOW Normal YELLOW [facility] Comment on above: Performed By: #### U AMIC ####[facility] Skhbzeap[address] [place], [place] [address]Dr. Grace Abdul Crystals LM Nom (Urine sed) NONE SEEN Normal NONE SEEN [facility] Comment on above: Performed By: #### U AMIC ####[facility] Fjuqtupove[address] [place], [place] [address]Dr. Grace Abdul Epithelial cells LM Ql (Urine sed) RARE Normal NONE SEEN /RARE [facility] Comment on above: Performed By: #### U AMIC ####[facility] Otoaikrbey[address] [place], [place] [address]Dr. Grace Abdul Glucose Ql (U) Negative Normal NEGATIVE [facility] Comment on above: Performed By: #### U AMIC ####[facility] Iqzeeqijqt[address] [place], [place] [address]Dr. Grace Abdul Hemoglobin Ql (U) MODERATE Abnormal NEGATIVE [facility] Comment on above: Performed By: #### U AMIC ####[facility] [address] [place] [address]Dr. Grace Abdul Ketones Ql (U) TRACE Abnormal NEGATIVE [facility] Comment on above: Performed By: #### U AMIC ####[facility] [address]ex[address] [place] [address]Dr. Grace Abdul LEUKOCYTES TRACE Abnormal NEGATIVE [facility] Comment on above: Performed By: #### U AMIC ####[facility] [address]xs[address] [place], [place] [address]Dr. Grace Abdul MUCOUS NONE SEEN Normal NONE SEEN [facility] Comment on above: Performed By: #### U AMIC ####[facility] Agqwpnakph[address] [place], [place] [address]Dr. Grace Abdul Nitrite Ql (U) Negative Normal NEGATIVE [facility] Comment on above: Performed By: #### U AMIC ####[facility] Dafkzhygvm[address] [place], [place] [address]Dr. Grace Abdul pH (U) 5.0 [pH] Normal 5-9 [facility] Comment on above: Performed By: #### U AMIC ####[facility] Rnomxfgkbg[address] [place], [place] [address]Dr. Grace Abdul RBC 0-2 Normal 0-2 [facility] Comment on above: Performed By: #### U AMIC ####[facility] Kjuyjssnmv[address] [place], [place] [address]Dr. Grace Abdul SPEC GRAVITY 1.015 Normal 1.005-<=1.025 [facility] Comment on above: Performed By: #### U AMIC ####[facility] Xmkayyylcj[address] [place], [place] [address]Dr. Grace Abdul UA PROTEIN Negative Normal NEGATIVE/ TRACE [facility] Comment on above: Performed By: #### U AMIC ####[facility] Gatqohuzof[address] [place], [place] [address]Dr. Grace Abdul Urobilinogen Qn (U) 0.2 {Ashley'U}/dL Normal 0.2 - 1. 0 [facility] Comment on above: Performed By: #### U AMIC ####[facility] [address] [place] [id number]. Grace Abdul WBC 0-2 Abnormal NONE SEEN [facility] Comment on above: Performed By: #### U AMIC ####[facility] [address] [place] [id number]. Grace Abdul CBC AUTO DIFFon 04-04-2022 BASO # 0.0 103/ul Normal 0.0-0.1 [facility] Comment on above: Performed By: #### C BC ####[facility] [address] [place] [id number]. Grace Abdul Basophils/100 WBC (Bld) 0.4 % Normal 0.2-2.0 [facility] Comment on above: Performed By: #### C BC ####[facility] C[address]zqxjd[address] [place], [place] [address]Dr. Grace Abdul EO # 0.1 103/ul Normal 0.0-0.7 [facility] Comment on above: Performed By: #### C BC ####[facility] Att[address]wo[address] [place], [place] [address]Dr. Grace Abdul Eosinophils/100 WBC (Bld) 1.3 % Normal 0.9-7.0 [facility] Comment on above: Performed By: #### C BC ####[facility] [address]eqwvlbn[address] [place], [place] [address]Dr. Grace Abdul Erythrocyte distribution width (RBC) [Ratio] 13.7 % Normal 11.0-15.0 [facility] Comment on above: Performed By: #### C BC ####[facility] Aarbefpogx[address] [place], [place] [address]Dr. Grace Abdul Hematocrit (Bld) [Volume fraction] 37.2 % Normal 36.0-48.0 [facility] Comment on above: Performed By: #### C BC ####[facility] Jxf[address]oe[address] [place], [place] [address]Dr. Grace Abdul Hemoglobin (Bld) [Mass/Vol] 12.4 g/dL Normal 12.0-16.0 [facility] Comment on above: Performed By: #### C BC ####[facility] [address] [place] [id number]. Grace Abdul IG # 0.02 10e3/ul Normal 0.00-0.03 [facility] Comment on above: Performed By: #### C BC ####[facility] [address] [place] [address]Dr. Grace Abdul IG % 0.4 % Normal 0.0-0.5 [facility] Comment on above: Performed By: #### C BC ####[facility] [address] [place] [address]Dr. Grace Abdul LYMPH # 0.8 103/ul Critically low 1.2-3.8 [facility] Comment on above: Performed By: #### C BC ####[facility] [address] [place] [address]Dr. Grace Abdul Lymphocytes/100 WBC (Bld) 13.9 % Critically low 20.5-60.0 [facility] Comment on above: Performed By: #### C BC ####[facility] [address] [place] [address]Dr. Grace Abdul MANUAL DIFF REQ NO Normal [facility] Comment on above: Performed By: #### C BC ####[facility] [address] [place] [address]Dr. Grace Abdul MCH (RBC) [Entitic mass] 30.5 pg Normal 26.7-34.0 [facility] Comment on above: Performed By: #### C BC ####[facility] [address]iunzm[address] [place], [place] [address]Dr. Grace bAdul MCHC (RBC) [Mass/Vol] 33.3 g/dL Normal 29.9-35.2 [facility] Comment on above: Performed By: #### C BC ####[facility] Zoddwmhfaq[address] [place], [place] [address]Dr. Grace Abdul MCV (RBC) [Entitic vol] 91.4 fL Normal 81.0-99.0 [facility] Comment on above: Performed By: #### C BC ####[facility] [address] [place] [id number]. Grace Abdul MONO # 0.7 103/ul Normal 0.3-0.8 [facility] Comment on above: Performed By: #### C BC ####[facility] [address] [place] [id number]. Grace Abdul Monocytes/100 WBC (Bld) 13.5 % Critically high 1.7-12.0 [facility] Comment on above: Performed By: #### C BC ####[facility] [address] [place] [id number]. Grace Abdul NEUT # 3.8 103/ul Normal 1.4-6.5 [facility] Comment on above: Performed By: #### C BC ####[facility] [address] [place] [id number]. Grace Abdul Neutrophils/100 WBC (Bld) 70.5 % Normal 43.0-75.0 [facility] Comment on above: Performed By: #### C BC ####[facility] [address]bs[address] [place] [id number]. Grace Abdul Platelet mean volume (Bld) [Entitic vol] 9.0 fL Critically low 9.5-13.5 [facility] Comment on above: Performed By: #### C BC ####[facility] [address] [place] [id number]. Grace Abdul PLT 283 103/ul Normal 150-450 [facility] Comment on above: Performed By: #### C BC ####[facility] [address] [place] [id number]. Grace Abdul RBC 4.07 106/ul Critically low 4.20-5.40 [facility] Comment on above: Performed By: #### C BC ####[facility] [address] [place] [id number]. Grace Abdul WBC 5.4 103/ul Normal 4.0-11.0 [facility] Comment on above: Performed By: #### C BC ####[facility] [address] [place], [place] [address]q. [address] ABD/PELV W CONon 04-04-19 [...] EMILY NAVARRETE Date: 2022-04-04 16:59 Normal [facility] ER URINE PROFILEon 3 Bilirubin Ql (U) Negative Normal NEGATIVE [facility] Comment on above: Performed By: #### E ROBERT ELLISON ####[facility] [address] [place], [place] [address]XsLisette Abdul Clarity (U) CLEAR Normal CLEAR [facility] Comment on above: Performed By: #### GINA FELDERRO ####[facility] [address] [place] [address]Dr. Grace Abdul Color (U) LT. YELLOW Normal YELLOW [facility] Comment on above: Performed By: #### GINA FELDERRO ####[facility] [address] [place] [address]Dr. Grace Abdul ERUAHD A micrscopic examination will be performed if indicated. Normal [facility] Comment on above: Performed By: #### GINA FELDERRO ####[facility] [address] [place], [place] [address]Dr. Grace Abdul Glucose Ql (U) Negative Normal NEGATIVE [facility] Comment on above: Performed By: #### GINA FELDERRO ####[facility] Jlphzuwgfo[address] [place], [place] [address]Dr. Grace Abdul Hemoglobin Ql (U) SMALL Abnormal NEGATIVE [facility] Comment on above: Performed By: #### GINA FELDERRO ####[facility] G[address]lwdt[address] [place], [place] [address]Dr. Grace Abdul Ketones Ql (U) Negative Normal NEGATIVE [facility] Comment on above: Performed By: #### GINA FELDERRO ####[facility] Tipmzholjd[address] [place], [place] [address]Dr. Grace Abdul LEUKOCYTES TRACE Abnormal NEGATIVE [facility] Comment on above: Performed By: #### GINA FELDERRO ####[facility] [address]qzs[address] [place], [place] [address]Dr. Grace Abdul Nitrite Ql (U) Negative Normal NEGATIVE [facility] Comment on above: Performed By: #### GINA FELDERRO ####[facility] Ireofccyfr[address] [place], [place] [address]Dr. Grace Abdul pH (U) 7.5 [pH] Normal 5-9 [facility] Comment on above: Performed By: #### GINA FELDERRO ####[facility] Gjsxpcystp[address] [place], [place] [address]Dr. Grace Abdul SPEC GRAVITY 1.005 Normal 1.005-<=1.025 [facility] Comment on above: Performed By: #### ROBERT FELDER ####[facility] [address] [place] [address]Dr. Grace Abdul UA PROTEIN Negative Normal NEGATIVE/ TRACE [facility] Comment on above: Performed By: #### ROBERT FELDER ####[facility] [address] [place] [address]Dr. Grace Abdul UR MICRO IND INDICATED Normal [facility] Comment on above: Performed By: #### ROBERT FELDER ####[facility] [address] [place] [address]Dr. Grace Abdul Urobilinogen Qn (U) 0.2 {Ashley'U}/dL Normal 0.2 - 1. 0 [facility] Comment on above: Performed By: #### ROBERT FELDER ####[facility] [address] [place] [address]Dr. Grace Abdul LIPASEon 04-04-2022 Lipase [Catalytic activity/Vol] 115.0 U/L Normal 73.0-393.0 [facility] Comment on above: Performed By: #### C HAROON #### [facility] [address] [place] [address] Dr. Grace Abdul PROF 14(COMP METB)on 023 Albumin [Mass/Vol] 3.6 g/dL Normal 3.4-5.0 [facility] Comment on above: Performed By: #### C JOETBH #### [facility] [address] [place] [address] Dr. Grace Abdul Albumin/Globulin [Mass ratio] 1.1 {ratio} Normal [facility] Comment on above: Performed By: #### C JOETBH #### [facility] [address] [place] [address] Dr. Grace Abdul ALP [Catalytic activity/Vol] 74 U/L Normal 46-116 [facility] Comment on above: Performed By: #### C VDTBH #### [facility] [address] [place] [address] [address] Grace Abdul ALT [Catalytic activity/Vol] 23 U/L Normal 14-59 [facility] Comment on above: Performed By: #### C VDTBH #### [facility] [address] [place] [address] [address] Grace Abdul Anion gap [Moles/Vol] 12.1 mmol/L Normal [facility] Comment on above: Performed By: #### C VDTBH #### [facility] [address] [place] [address] [address] Grace Abdul AST [Catalytic activity/Vol] 21 U/L Normal 15-37 [facility] Comment on above: Performed By: #### C VDTBH #### [facility] [address] [place] [address] Dr. Grace Abdul Bilirubin [Mass/Vol] 0.2 mg/dL Normal 0.2-1.0 [facility] Comment on above: Performed By: #### C VDTBH #### [facility] [address] [place] [address] Dr. Grace Abdul Calcium [Mass/Vol] 9.3 mg/dL Normal 8.5-10.1 [facility] Comment on above: Performed By: #### C VDTBH #### [facility] [address] [place] [address] Dr. Grace Abdul Chloride [Moles/Vol] 99 mmol/L Normal 98-107 [facility] Comment on above: Performed By: #### C VDTBH #### [facility] [address] [place] [address] [address] Grace Abdul CO2 [Moles/Vol] 31.2 mmol/L Normal 21.0-32.0 [facility] Comment on above: Performed By: #### C VDTBH #### [facility] [address] [place] [address] Dr. Grace Abdlu Creatinine [Mass/Vol] 1.22 mg/dL Critically high 0.55-1.02 [facility] Comment on above: Performed By: #### C VDTBH #### [facility] [address] [address] [address] Grace Abdul EGFR-AF MAURITANIAN 51 mL/min/1.73m2 Critically low >=60 [facility] Comment on above: Performed By: #### C VDTBH #### [facility] [address] [place] [address] [address] Grace Abdul EGFR-NON AF MAURITANIAN 42 mL/min/1.73m2 Critically low >=60 [facility] Comment on above: Performed By: #### C VDTBH #### [facility] [address] [address] [address] Grace Abdul Globulin (S) [Mass/Vol] 3.3 g/dL Normal [facility] Comment on above: Performed By: #### C VDTBH #### [facility] [address] [address] [address] Grace Abdul Glucose [Mass/Vol] 115 mg/dL Critically high 74-106 [facility] Comment on above: Performed By: #### C VDTBH #### [facility] [address] [address] [address] Grace Abdul Potassium [Moles/Vol] 3.3 mmol/L Critically low 3.5-5.1 [facility] Comment on above: Performed By: #### C VDTBH #### [facility] [address] [address] [address] Grace Abdul Protein [Mass/Vol] 6.9 g/dL Normal 6.4-8.2 [facility] Comment on above: Performed By: #### C VDTBH #### [facility] [address] [address] [address] Grace Abdul Sodium [Moles/Vol] 139 mmol/L Normal 136-145 [facility] Comment on above: Performed By: #### C VDTBH #### [facility] [address] [address] [address] Grace Abdul Urea nitrogen [Mass/Vol] 23.0 mg/dL Critically high 7.0-18.0 [facility] Comment on above: Performed By: #### C MALCOLM #### [facility] [address] [address] [address] Grace Abdul Urea nitrogen/Creatinine [Mass ratio] 18.9 mg/mg Normal [facility] Comment on above: Performed By: #### C JOETB #### [facility] [address] [address] [address] Grace Abdul URINE MICROSCOPIC ONLYon BACTERIA NONE SEEN Normal NONE SEEN [facility] Comment on above: Performed By: #### Anthony ELLISON UMICRO ####[facility] [address] [place] [address]Dr. Grace Abdul Bacteria identified Cx Nom (U) NOT INDICATED Normal [facility] Comment on above: Performed By: #### Anthony ELLISON UMICRO ####[facility] [address] [place] [address]Dr. Grace Abdul CAST NONE SEEN Normal NONE SEEN [facility] Comment on above: Performed By: #### Anthony ELLISON UMICRO ####[facility] [address] [place] [address]Dr. Grace Abdul Crystals LM Nom (Urine sed) NONE SEEN Normal NONE SEEN [facility] Comment on above: Performed By: #### Anthony ELLISON UMICRO ####[facility] [facility] [address] [place] [address]Dr. Grace Abdul Epithelial cells LM Ql (Urine sed) RARE Normal NONE SEEN /RARE [facility] Comment on above: Performed By: #### Anthony ELLISON UMICRO ####[facility] Srqxjbcoot[address] [place] [address]Dr. Grace Abdul MUCOUS NONE SEEN Normal NONE SEEN [facility] Comment on above: Performed By: #### Anthony ELLISON UMICRO ####[facility] Agcdccbxlx[address] [place] [address]Dr. Grace Abdul RBC 0-2 Normal 0-2 [facility] Comment on above: Performed By: #### Anthony ELLISON UMICRO ####[facility] Z[address]bp[address] [place] [id number]. Grace Abdul WBC 0-2 Abnormal NONE SEEN [facility] Comment on above: Performed By: #### E ROBERT ELLISON ####[facility] [address]xyog[address] [place] [id number] Abdul BNPon 12-11-2021 Natriuretic peptide B (Bld) [Mass/Vol] 665.0 pg/mL Normal <=1,800.0 [facility] Comment on above: Performed By: #### B MP #### [facility] [address] [address] [address] Grace Abdul CBC AUTO DIFFon 12-11-2021 BASO # 0.0 103/ul Normal 0.0-0.1 [facility] Comment on above: Performed By: #### C BC ####[facility] Z[address]nucyrtgz[address] [place] [address]DrLisette Abdul Basophils/100 WBC (Bld) 0.5 % Normal 0.2-2.0 [facility] Comment on above: Performed By: #### C BC ####[facility] Cxepffvmlw67[address] [place] [address]DrLisette Abdul EO # 0.1 103/ul Normal 0.0-0.7 [facility] Comment on above: Performed By: #### C BC ####[facility] Qxjhrhnffu50[address] [place] [address]DrLisette Abdul Eosinophils/100 WBC (Bld) 1.9 % Normal 0.9-7.0 [facility] Comment on above: Performed By: #### C BC ####[facility] Zxixqkkrpe[address] [place] [address]DrLisette Abdul Erythrocyte distribution width (RBC) [Ratio] 13.4 % Normal 11.0-15.0 [facility] Comment on above: Performed By: #### C BC ####[facility] Xjejctcwih08[address] [place] [address]DrLisette Abdul Hematocrit (Bld) [Volume fraction] 36.2 % Normal 36.0-48.0 [facility] Comment on above: Performed By: #### C BC ####[facility] Budppgzjoz[address] [place] [address]Dr. Grace Abdul Hemoglobin (Bld) [Mass/Vol] 11.9 g/dL Critically low 12.0-16.0 [facility] Comment on above: Performed By: #### C BC ####[facility] Lbqgvejzxk[address] [place] [address]Dr. Grace Abdul IG # 0.01 10e3/ul Normal 0.00-0.03 [facility] Comment on above: Performed By: #### C BC ####[facility] [address] [place], [place] [address]Dr. Grace Franko IG % 0.2 % Normal 0.0-0.5 [facility] Comment on above: Performed By: #### C BC ####[facility] Waopeamxsg[address] [place], [place] [address]Dr. Benitalee ann Franko LYMPH # 0.5 103/ul Critically low 1.2-3.8 [facility] Comment on above: Performed By: #### C BC ####[facility] Jcojpbteah[address] [place], [place] [address]Dr. Grace Abdul Lymphocytes/100 WBC (Bld) 11.5 % Critically low 20.5-60.0 [facility] Comment on above: Performed By: #### C BC ####[facility] Znyvkdqtxy[address] [place], [place] [address]Dr. Benitalee ann Abdul MANUAL DIFF REQ NO Normal [facility] Comment on above: Performed By: #### C BC ####[facility] Stpiolqdiz[address] [place], [place] [address]Dr. Grace Franko MCH (RBC) [Entitic mass] 31.6 pg Normal 26.7-34.0 [facility] Comment on above: Performed By: #### C BC ####[facility] Iqbbexewpj[address] [place], [place] [address]Dr. Grace Franko MCHC (RBC) [Mass/Vol] 32.9 g/dL Normal 29.9-35.2 [facility] Comment on above: Performed By: #### C BC ####[facility] Apswpxoddv[address] [place] [id number]. Grace Abdul MCV (RBC) [Entitic vol] 96.0 fL Normal 81.0-99.0 [facility] Comment on above: Performed By: #### C BC ####[facility] Sz[address]fskujlc40[address] [place] [id number]. Grace Abdul MONO # 0.6 103/ul Normal 0.3-0.8 [facility] Comment on above: Performed By: #### C BC ####[facility] Qgheeqgegv35[address] [place] [address]Dr. Grace Abdul Monocytes/100 WBC (Bld) 14.4 % Critically high 1.7-12.0 [facility] Comment on above: Performed By: #### C BC ####[facility] Hdvnielohu[address] [place], [place] [address]Dr. Grace Abdul NEUT # 3.0 103/ul Normal 1.4-6.5 [facility] Comment on above: Performed By: #### C BC ####[facility] Rvgzgauakr[address] [place], [place] [address]Dr. Grace Abdul Neutrophils/100 WBC (Bld) 71.5 % Normal 43.0-75.0 [facility] Comment on above: Performed By: #### C BC ####[facility] [address]mceupwpuu4[address] [place] [address]Dr. Grace Abdul Platelet mean volume (Bld) [Entitic vol] 9.2 fL Critically low 9.5-13.5 [facility] Comment on above: Performed By: #### C BC ####[facility] [address] [place], [place] [address]Dr. Grace Abdul PLT 290 103/ul Normal 150-450 [facility] Comment on above: Performed By: #### C BC ####[facility] [address]ytwkyshtx38[address] [place] [id number]. Grace Franko RBC 3.77 106/ul Critically low 4.20-5.40 [facility] Comment on above: Performed By: #### C BC ####[facility] [address]preya[address] [place], [place] [address]XqDr. Grace Abdul WBC 4.2 103/ul Normal 4.0-11.0 [facility] Comment on above: Performed By: #### C BC ####[facility] Vqjvhotaet6[address] [place], [place] [address]Dr. Grace Abdul FREE THYROXINE INDEX T7on FTI 2.63 Normal 1.30-4.50 [facility] Comment on above: Performed By: #### B MP #### [facility] [address] [address] [address] Grace Abdul T3U 35.0 % Normal 30.0-39.0 [facility] Comment on above: Performed By: #### B MP #### [facility] [address] [address] [address] Grace Abdul T4 [Mass/Vol] 7.50 ug/dL Normal 4.80-13.90 [facility] Comment on above: Performed By: #### B MP #### [facility] [address] [address] [address] Grace Abdul GLYCOHEMOGLOBIN A1Con 2021 ADA RECOMMENDATION SEE BELOW Normal [facility] Comment on above: Result Comment: ADA RECOMMENDED LIMIT 4.0 - 6.0 ADA THERAPEUTIC TARGET < 7.0 ACTION SUGGESTED > 7.0 Performed By: #### A 1C ####[facility] [address]tt[address] [place] [address]Dr. Grace Abdul Glucose [Mass/Vol] 111 mg/dL Normal [facility] Comment on above: Performed By: #### A 1C ####[facility] P[address]ixyuxfb[address] [place] [id number]. Grace Abdul HbA1c (Bld) [Mass fraction] 5.5 % Normal 4.5-6.2 [facility] Comment on above: Performed By: #### A 1C ####[facility] [address]ozltxbab[address] [place] [address]Dr. Grace Abdul IRONon 12-11-2021 Iron [Mass/Vol] 50.0 ug/dL Normal 50.0-170.0 [facility] Comment on above: Performed By: #### I KASANDRA WEBSTER VITB12 ####[facility] [address]tlb4[address] [place], [place] [address]WnDr. Grace Abdul LIPID PROFILEon 12-11-2021 CHOL-HDL RATIO NORM SEE BELOW Normal [facility] Comment on above: Result Comment: 3.3 - 4.4 LOW RISK 4.4 - 7.1 AVERAGE RISK 7.1 - 11.0 MODERATE RISK >11.0 HIGH RISK Performed By: #### B MP #### [facility] [address] [address] [address] Grace Abdul Cholesterol [Mass/Vol] 182 mg/dL Normal <=200 [facility] Comment on above: Performed By: #### B MP #### [facility] [address] [address] [address] Grace Abdul Cholesterol in HDL [Mass/Vol] 60 mg/dL Normal 40-60 [facility] Comment on above: Performed By: #### B MP #### [facility] [address] [address] [address] Grace Abdul Cholesterol in LDL [Mass/Vol] 101.2 mg/dL Normal [facility] Comment on above: Performed By: #### B MP #### [facility] [address] [address] [address] Grace Abdul Cholesterol.total/Ch olesterol in HDL [Mass ratio] 3.0 {ratio} Normal [facility] Comment on above: Performed By: #### B MP #### [facility] [address] [place], [place] [address] Dr. Grace Abdul HDL NORMAL > or = 60 mg/dl - LO W CARDIOVASCULAR RISK <40 mg/dl - HIGH CARDIOVASCULAR RISK Normal [facility] Comment on above: Performed By: #### B MP #### [facility] [address] [address] [address] Grace Abdul LDL CALC NORMAL SEE BELOW Normal [facility] Comment on above: Result Comment: <100 mg/dl OPTIMAL 100 - 129 mg/dl NEAR OR ABOVE OPTIMAL 130 - 159 mg/dl BORDERLINE HIGH 160 - 189 mg/dl HIGH >190 mg/dl VERY HIGH Performed By: #### B MP #### [facility] [address] [place] [address] Dr. Grace Abdul Triglyceride [Mass/Vol] 104 mg/dL Normal <=150 [facility] Comment on above: Performed By: #### B MP #### [facility] [address] [place] [address] Dr. Grace Abdul VLDL CALC 20.8 mg/dL Normal [facility] Comment on above: Performed By: #### B MP #### [facility] [address] [place] [address] Dr. Grace Abdul PROF 14(COMP METB)on 022 Albumin [Mass/Vol] 3.5 g/dL Normal 3.4-5.0 [facility] Comment on above: Performed By: #### B MP #### [facility] [address] [place] [address] Dr. Grace Abdul Albumin/Globulin [Mass ratio] 1.0 {ratio} Normal [facility] Comment on above: Performed By: #### B MP #### [facility] [address] [place] [address] Dr. Grace Abdul ALP [Catalytic activity/Vol] 55 U/L Normal 46-116 [facility] Comment on above: Performed By: #### B MP #### [facility] [address] [place] [address] Dr. Grace Abdul ALT [Catalytic activity/Vol] 21 U/L Normal 14-59 [facility] Comment on above: Performed By: #### B MP #### [facility] [address] [place] [address] Dr. Grace Abdul Anion gap [Moles/Vol] 9.3 mmol/L Normal [facility] Comment on above: Performed By: #### B MP #### [facility] [address] [place] [address] Dr. Grace Abdul AST [Catalytic activity/Vol] 21 U/L Normal 15-37 [facility] Comment on above: Performed By: #### B MP #### [facility] [address] [address] [address] Grace Abdul Bilirubin [Mass/Vol] 0.3 mg/dL Normal 0.2-1.0 [facility] Comment on above: Performed By: #### B MP #### [facility] [address] [address] [address] Grace Abdul Calcium [Mass/Vol] 9.5 mg/dL Normal 8.5-10.1 [facility] Comment on above: Performed By: #### B MP #### [facility] [address] [address] [address] Grace Abdul Chloride [Moles/Vol] 102 mmol/L Normal 98-107 [facility] Comment on above: Performed By: #### B MP #### [facility] [address] [address] [address] Grace Abdul CO2 [Moles/Vol] 28.5 mmol/L Normal 21.0-32.0 [facility] Comment on above: Performed By: #### B MP #### [facility] [address] [address] [address] Grace Abdul Creatinine [Mass/Vol] 1.04 mg/dL Critically high 0.55-1.02 [facility] Comment on above: Performed By: #### B MP #### [facility] [address] [address] [address] Grace Abdul EGFR-AF MAURITANIAN >60 Normal >=60 [facility] Comment on above: Performed By: #### B MP #### [facility] [address] [address] [address] Grace Abdul EGFR-NON AF MAURITANIAN 51 mL/min/1.73m2 Critically low >=60 [facility] Comment on above: Performed By: #### B MP #### [facility] [address] [address] [address] Grace Abdul Globulin (S) [Mass/Vol] 3.5 g/dL Normal [facility] Comment on above: Performed By: #### B MP #### [facility] [address] [address] [address] Grace Abdul Glucose [Mass/Vol] 102 mg/dL Normal 74-106 [facility] Comment on above: Performed By: #### B MP #### [facility] [address] [address] [address] Grace Abdul Potassium [Moles/Vol] 3.8 mmol/L Normal 3.5-5.1 [facility] Comment on above: Performed By: #### B MP #### [facility] [address] [address] [address] Grace Abdul Protein [Mass/Vol] 7.0 g/dL Normal 6.4-8.2 [facility] Comment on above: Performed By: #### B MP #### [facility] [address] [address] [address] Grace Abdul Sodium [Moles/Vol] 136 mmol/L Normal 136-145 [facility] Comment on above: Performed By: #### B MP #### [facility] [address] [address] [address] Grace Abdul Urea nitrogen [Mass/Vol] 20.0 mg/dL Critically high 7.0-18.0 [facility] Comment on above: Performed By: #### B MP #### [facility] [address] [address] [address] Grace Abdul Urea nitrogen/Creatinine [Mass ratio] 19.2 mg/mg Normal [facility] Comment on above: Performed By: #### B MP #### [facility] [address] [address] [address] Grace Abdul TSHon 12-11-2021 TSH 0.247 uIU/mL Critically low 0.358-3.740 [place] Comment on above: Performed By: #### B MP #### [facility] [address] [address] [address] Grace Abdul VITAMIN B12on 12-11-2021 Cobalamin (Vitamin B12) [Mass/Vol] 762.0 pg/mL Normal 193.0-986.0 [facility] Comment on above: Performed By: #### I DARIN VITAD, VITB12 ####[facility] [address] [place] [id number]. Grace Abdul VITAMIN D 25 OHon 12-11-2021 VIT D 25-OH 54.9 ng/mL Normal [facility] Comment on above: Performed By: #### I DARIN VITAD, VITB12 ####[facility] [address] [place] [id number]. Grace Abdul VIT D RANGES SEE BELOW Normal [facility] Comment on above: Result Comment: <20 ng/mL Vit D deficient 20 - <30 ng/mL Vit D insufficient 30 - 100 ng/mL Vit D sufficient >100 ng/mL Potential Toxicity Performed By: #### I DARIN VITAD, VITB12 ####[facility] [address] [place] [id number]. Grace Abdul MG MAMM SCREEN 3D CLEMENCIA CADon 11-25-2021 MG MAMM SCREEN 3D CLEMENCIA CAD Patient: ALEXA DELGADO Exam Date: 11/25/2021 : 1940 Gender:F Ordering : DR GALINA ROGERS . Admission #: [id number] Family : DR ELOISA MORALES Order #: [id number] CLICK HERE TO VIEW EXAM RADIOLOGY REPORT [...] Treatments None Family Cancers None LOCATION: [facility] BREAST COMPOSITION: Scattered areas fibroglandular density. [...] MD on 11/25/2021 at 14:14 Normal [facility] CULTURE URINEon 11-24-2021 CULTURE URINE Culture Observations : LIGHT GROWTH OF MIXED GENITAL ALANIS. NO POTENTIAL PATHOGENS SEEN. Normal [facility] Comment on above: Performed By: #### U RCX ####[facility] [address] [place] [address]Dr. Grace Abdul GI PANEL (PCR)on 11-24-2021 Adenovirus F 40/41 Not detected Normal NOT DETECTED [facility] Comment on above: Performed By: #### C BC #### [facility] [address] [place] [address] Dr. Grace Abdul Astrovirus Not detected Normal NOT DETECTED [facility] Comment on above: Performed By: #### C BC #### [facility] [address] [place] [address] Dr. Grace Dorman. Diff toxin A/B Not detected Normal NOT DETECTED [facility] Comment on above: Performed By: #### C BC #### [facility] [address] [place] [address] Dr. Grace Abdul Campylobacter Not detected Normal NOT DETECTED [facility] Comment on above: Performed By: #### C BC #### [facility] [address] [place] [address] Dr. Grace Abdul Cryptosporidium Not detected Normal NOT DETECTED [facility] Comment on above: Performed By: #### C BC #### [facility] [address] [place] [address] Dr. Grace Abdul Cyclos. Cayetanensis Not detected Normal NOT DETECTED [facility] Comment on above: Performed By: #### C BC #### [facility] [address] [place] [address] Dr. Grace Abdul E. Coli O157 Not Applicable Normal Not Applicable [facility] Comment on above: Performed By: #### C BC #### [facility] [address] [place] [address] Dr. Grace Abdul E. histolytica Not detected Normal NOT DETECTED [facility] Comment on above: Performed By: #### C BC #### [facility] [address] [place] [address] Dr. Grace Abdul EAEC Not detected Normal NOT DETECTED [facility] Comment on above: Performed By: #### C BC #### [facility] [address] [place] [address] Dr. Grace Abdul EIEC Not detected Normal NOT DETECTED [facility] Comment on above: Performed By: #### C BC #### [facility] [address] [place] [address] Dr. Grace Abdul EPEC Not detected Normal NOT DETECTED [facility] Comment on above: Performed By: #### C BC #### [facility] [address] [place] [address] Dr. Grace Abdul ETEC Not detected Normal NOT DETECTED [facility] Comment on above: Performed By: #### C BC #### [facility] [address] [place] [address] Dr. Grace Abdul G. Lamblia Not detected Normal NOT DETECTED [facility] Comment on above: Performed By: #### C BC #### [facility] [address] [place] [address] Dr. Grace MCKEON CONTROLS PASSED Normal [facility] Comment on above: Performed By: #### C BC #### [facility] [address] [place] [address] Dr. Grace [facility] HEADER GI PANEL BACTERIA Normal [facility] Comment on above: Performed By: #### C BC #### [facility] [address] [place] [address] Dr. Grace SANDERS ECOLI GI PANEL DIARRHEAGEN IC E.COLI / SHIGELLA Normal [facility] Comment on above: Performed By: #### C BC #### [facility] [address] [place] [address] Dr. Grace SANDERS INFO SEE BELOW Normal [facility] Comment on above: Result Comment: EAEC - Enteroaggregative E. Coli EPEC- Enteropathogenic E. Coli ETEC- Enterotoxigenic E. Coli lt/st STEC- Shigella-like toxin-producing E. Coli stx1/stx2 EIEC- Shigella/Enteroinvasive E. Coli Performed By: #### C BC #### [facility] [address] [place] [address] Dr. Grace SANDERS PARASITES GI PANEL PARASITES Normal [facility] Comment on above: Performed By: #### C BC #### [facility] [address] [address] [address] Grace SANDERS VIRUS GI PANEL VIRUSES Normal [facility] Comment on above: Performed By: #### C BC #### [facility] [address] [place] [address] Dr. Grace Abdul Norovirus GI/GII Not detected Normal NOT DETECTED [facility] Comment on above: Performed By: #### C BC #### [facility] [address] [place] [address] Dr. Grace Abdul P. Shigelloides Not detected Normal NOT DETECTED [facility] Comment on above: Performed By: #### C BC #### [facility] [address] [place] [address] Dr. Grace Abdul Rotavirus A Not detected Normal NOT DETECTED [facility] Comment on above: Performed By: #### C BC #### [facility] [address] [place] [address] Dr. Grace Abdul Salmonella Not detected Normal NOT DETECTED [facility] Comment on above: Performed By: #### C BC #### [facility] [address] [place] [address] Dr. Grace Abdul Sapovirus Not detected Normal NOT DETECTED [facility] Comment on above: Performed By: #### C BC #### [facility] [address] [place] [address] Dr. Grace Adbul STEC Not detected Normal NOT DETECTED [facility] Comment on above: Performed By: #### C BC #### [facility] [address] [place] [address] Dr. Grace Abdul Vibrio Not detected Normal NOT DETECTED [facility] Comment on above: Performed By: #### C BC #### [facility] [address] [address] [address] Grace Abdul Vibrio Cholera Not detected Normal NOT DETECTED [facility] Comment on above: Performed By: #### C BC #### [facility] [address] [place] [address] [address] Grace Abdul Y. Enterocolitica Not detected Normal NOT DETECTED [facility] Comment on above: Performed By: #### C BC #### [facility] [address] [place] [address] [address] Grace Abdul UA RANDOM W/MICROSCOPICon BACTERIA NONE SEEN Normal NONE SEEN [facility] Comment on above: Performed By: #### U AMIC ####[facility] [address] [place] [address]Dr. Grace Abdul Bilirubin Ql (U) Negative Normal NEGATIVE [facility] Comment on above: Performed By: #### U AMIC ####[facility] [address] [place], [place] [address]Dr. Grace Abdul CAST NONE SEEN Normal NONE SEEN [facility] Comment on above: Performed By: #### U AMIC ####[facility] [address] [place], [place] [address]Dr. Grace Abdul Clarity (U) CLEAR Normal CLEAR [facility] Comment on above: Performed By: #### U AMIC ####[facility] [address] [place] [address]Dr. Grace Abdul Color (U) LT. YELLOW Normal YELLOW [facility] Comment on above: Performed By: #### U AMIC ####[facility] [address] [place] [address]Dr. Grace Abdul Crystals LM Nom (Urine sed) NONE SEEN Normal NONE SEEN [facility] Comment on above: Performed By: #### U AMIC ####[facility] [address] [place] [address]Dr. Grace Abdul Epithelial cells LM Ql (Urine sed) FEW Abnormal NONE SEEN /RARE [facility] Comment on above: Performed By: #### U AMIC ####[facility] [address] [place] [address]Dr. Grace Abdul Glucose Ql (U) Negative Normal NEGATIVE [facility] Comment on above: Performed By: #### U AMIC ####[facility] [address] [place] [address]Dr. Benitalee ann Abdul Hemoglobin Ql (U) TRACE-INTACT Abnormal NEGATIVE [facility] Comment on above: Performed By: #### U AMIC ####[facility] [address]ukwf[address] [place] [address]Dr. Benitalee ann Abdul Ketones Ql (U) Negative Normal NEGATIVE [facility] Comment on above: Performed By: #### U AMIC ####[facility] [address]beat[address] [place] [address]Dr. Grace Abdul LEUKOCYTES Negative Normal NEGATIVE [facility] Comment on above: Performed By: #### U AMIC ####[facility] [address] [place], [place] [address]Dr. Grace Abdul MUCOUS NONE SEEN Normal NONE SEEN [facility] Comment on above: Performed By: #### U AMIC ####[facility] [address]ngqckyl[address] [place], [place] [address]Dr. Benitalee ann Abdul Nitrite Ql (U) Negative Normal NEGATIVE [facility] Comment on above: Performed By: #### U AMIC ####[facility] [address] [place], [place] [address]Dr. Grace Abdul pH (U) 7.5 [pH] Normal 5-9 [facility] Comment on above: Performed By: #### U AMIC ####[facility] [address] [place], [place] [address]Dr. Grace Abdul RBC 0-2 Normal 0-2 [facility] Comment on above: Performed By: #### U AMIC ####[facility] [address]tb[address] [place] [address]Dr. Grace Abdul SPEC GRAVITY 1.010 Normal 1.005-<=1.025 [facility] Comment on above: Performed By: #### U AMIC ####[facility] [address] [place] [id number]. Grace Abdul UA PROTEIN Negative Normal NEGATIVE/ TRACE [facility] Comment on above: Performed By: #### U AMIC ####[facility] [address] [place] [id number]. Grace Abdul Urobilinogen Qn (U) 0.2 {Ashley'U}/dL Normal 0.2 - 1. 0 [facility] Comment on above: Performed By: #### U AMIC ####[facility] [address] [place] [id number]. Grace Abdul WBC NONE SEEN Normal NONE SEEN [facility] Comment on above: Performed By: #### U AMIC ####[facility] [address] [address]Dr. Grace Abdul CBC AUTO DIFFon 11-23-2021 BASO # 0.0 103/ul Normal 0.0-0.1 [facility] Comment on above: Performed By: #### C BC #### [facility] [address] [address] [address] Grace Abdul Basophils/100 WBC (Bld) 0.4 % Normal 0.2-2.0 [facility] Comment on above: Performed By: #### C BC #### [facility] [address] [address] [address] Grace Abdul EO # 0.1 103/ul Normal 0.0-0.7 [facility] Comment on above: Performed By: #### C BC #### [facility] [address] [address] [address] Grace Abdul Eosinophils/100 WBC (Bld) 1.5 % Normal 0.9-7.0 [facility] Comment on above: Performed By: #### C BC #### [facility] [address] [address] [address] Grace Abdul Erythrocyte distribution width (RBC) [Ratio] 13.2 % Normal 11.0-15.0 [facility] Comment on above: Performed By: #### C BC #### [facility] [address] [place] [address] Dr. Grace Abdul Hematocrit (Bld) [Volume fraction] 31.9 % Critically low 36.0-48.0 [facility] Comment on above: Performed By: #### C BC #### [facility] [address] [place] [address] Dr. Grace Abdul Hemoglobin (Bld) [Mass/Vol] 10.5 g/dL Critically low 12.0-16.0 [facility] Comment on above: Performed By: #### C BC #### [facility] [address] [place] [address] Dr. Grace Abdul IG # 0.01 10e3/ul Normal 0.00-0.03 [facility] Comment on above: Performed By: #### C BC #### [facility] [address] [place] [address] Dr. Grace Abdul IG % 0.2 % Normal 0.0-0.5 [facility] Comment on above: Performed By: #### C BC #### [facility] [address] [place] [address] Dr. Grace Abdul LYMPH # 0.7 103/ul Critically low 1.2-3.8 [facility] Comment on above: Performed By: #### C BC #### [facility] [address] [place] [address] Dr. Grace Abdul Lymphocytes/100 WBC (Bld) 14.8 % Critically low 20.5-60.0 [facility] Comment on above: Performed By: #### C BC #### [facility] [address] [place] [address] Dr. Grace Abdul MANUAL DIFF REQ NO Normal [facility] Comment on above: Performed By: #### C BC #### [facility] [address] [place] [address] Dr. Grace Abdul MCH (RBC) [Entitic mass] 31.4 pg Normal 26.7-34.0 [facility] Comment on above: Performed By: #### C BC #### [facility] [address] [address] [address] Grace Abdul MCHC (RBC) [Mass/Vol] 32.9 g/dL Normal 29.9-35.2 [facility] Comment on above: Performed By: #### C BC #### [facility] [address] [place] [address] Dr. Grace Abdul MCV (RBC) [Entitic vol] 95.5 fL Normal 81.0-99.0 [facility] Comment on above: Performed By: #### C BC #### [facility] [address] [place] [address] Dr. Grace Abdul MONO # 0.6 103/ul Normal 0.3-0.8 [facility] Comment on above: Performed By: #### C BC #### [facility] [address] [place] [address] Dr. Grace Abdul Monocytes/100 WBC (Bld) 13.4 % Critically high 1.7-12.0 [facility] Comment on above: Performed By: #### C BC #### [facility] [address] [place] [address] Dr. Grace Abdul NEUT # 3.3 103/ul Normal 1.4-6.5 [facility] Comment on above: Performed By: #### C BC #### [facility] [address] [place] [address] Dr. Grace Abdul Neutrophils/100 WBC (Bld) 69.7 % Normal 43.0-75.0 [facility] Comment on above: Performed By: #### C BC #### [facility] [address] [place] [address] Dr. Grace Abdul Platelet mean volume (Bld) [Entitic vol] 9.1 fL Critically low 9.5-13.5 [facility] Comment on above: Performed By: #### C BC #### [facility] [address] [place] [address] Dr. Grace Abdul PLT 335 103/ul Normal 150-450 [facility] Comment on above: Performed By: #### C BC #### [facility] [address] [place] [address] Dr. Grace Abdul RBC 3.34 106/ul Critically low 4.20-5.40 [facility] Comment on above: Performed By: #### C BC #### [facility] [address] [address] [address] Grace Abdul WBC 4.8 103/ul Normal 4.0-11.0 [facility] Comment on above: Performed By: #### C BC #### [facility] [address] [address] [address] Grace Abdul FREE THYROXINE INDEX T7on FTI 1.15 Critically low 1.30-4.50 [facility] Comment on above: Performed By: #### T 7, CMP, TSH ####[facility] [address] [address]Dr. Grace Abdul T3U 31.0 % Normal 30.0-39.0 [facility] Comment on above: Performed By: #### T 7, CMP, TSH ####[facility] [address] [id number]. Grace Abdul T4 [Mass/Vol] 3.70 ug/dL Critically low 4.80-13.90 [facility] Comment on above: Performed By: #### T 7, CMP, TSH ####[facility] [address] [id number]. Grace Abdul IRONon 11-23-2021 Iron [Mass/Vol] 52.0 ug/dL Normal 50.0-170.0 [facility] Comment on above: Performed By: #### C VDTBH #### [facility] [address] [address] [address] Grace Abdul PROF 14(COMP METB)on 022 Albumin [Mass/Vol] 3.5 g/dL Normal 3.4-5.0 [facility] Comment on above: Performed By: #### T 7, CMP, TSH ####[facility] [address] [address]Dr. Grace Abdul Albumin/Globulin [Mass ratio] 1.1 {ratio} Normal [facility] Comment on above: Performed By: #### T 7, CMP, TSH ####[facility] [address] [address]Dr. Grace Abdul ALP [Catalytic activity/Vol] 69 U/L Normal 46-116 [facility] Comment on above: Performed By: #### T 7, CMP, TSH ####[facility] [address] [address]Dr. Grace Franko ALT [Catalytic activity/Vol] 51 U/L Normal 14-59 [facility] Comment on above: Performed By: #### T 7, CMP, TSH ####[facility] [address] [address]Dr. Grace Franko Anion gap [Moles/Vol] 11.5 mmol/L Normal [facility] Comment on above: Performed By: #### T 7, CMP, TSH ####[facility] [address] [place], [place] [address]Dr. Grace Franko AST [Catalytic activity/Vol] 24 U/L Normal 15-37 [facility] Comment on above: Performed By: #### T 7, CMP, TSH ####[facility] [address] [place], [place] [address]Dr. Grace Franko Bilirubin [Mass/Vol] 0.2 mg/dL Normal 0.2-1.0 [facility] Comment on above: Performed By: #### T 7, CMP, TSH ####[facility] [address] [place], [place] [address]Dr. Grace Franko Calcium [Mass/Vol] 9.3 mg/dL Normal 8.5-10.1 [facility] Comment on above: Performed By: #### T 7, CMP, TSH ####[facility] [address] [place], [place] [address]Dr. Benitalee ann Abdul Chloride [Moles/Vol] 98 mmol/L Normal 98-107 [facility] Comment on above: Performed By: #### T 7, CMP, TSH ####[facility] [address] [place], [place] [address]Dr. Grace Abdul CO2 [Moles/Vol] 28.7 mmol/L Normal 21.0-32.0 [facility] Comment on above: Performed By: #### T 7, LEONOR, TSH ####[facility] [address] [address]Dr. Grace Abdul Creatinine [Mass/Vol] 1.11 mg/dL Critically high 0.55-1.02 [facility] Comment on above: Performed By: #### T 7, LEONOR, TSH ####[facility] [address] [id number]. Grace Abdul EGFR-AF MAURITANIAN 57 mL/min/1.73m2 Critically low >=60 [facility] Comment on above: Performed By: #### T 7, LEONOR, TSH ####[facility] [address] [address]Dr. Grace Abdul EGFR-NON AF MAURITANIAN 47 mL/min/1.73m2 Critically low >=60 [facility] Comment on above: Performed By: #### T 7, LEONOR, TSH ####[facility] [address] [id number]. Grace Abdul Globulin (S) [Mass/Vol] 3.3 g/dL Normal [facility] Comment on above: Performed By: #### T 7, LEONOR, TSH ####[facility] [address] [id number]. Grace Abdul Glucose [Mass/Vol] 88 mg/dL Normal 74-106 [facility] Comment on above: Performed By: #### T 7, CMP, TSH ####[facility] [address] [id number]. Grace Abdul Potassium [Moles/Vol] 4.2 mmol/L Normal 3.5-5.1 [facility] Comment on above: Performed By: #### T 7, CMP, TSH ####[facility] [address] [address]Dr. Grace Abdul Protein [Mass/Vol] 6.8 g/dL Normal 6.4-8.2 [facility] Comment on above: Performed By: #### T 7, CMP, TSH ####[facility] [address] [address]Dr. Grace Abdul Sodium [Moles/Vol] 134 mmol/L Critically low 136-145 [facility] Comment on above: Performed By: #### T 7, CMP, TSH ####[facility] [address] [address]Dr. Grace Abdul Urea nitrogen [Mass/Vol] 33.0 mg/dL Critically high 7.0-18.0 [facility] Comment on above: Performed By: #### T 7, CMP, TSH ####[facility] [address] [address]Dr. Grace Abdul Urea nitrogen/Creatinine [Mass ratio] 29.7 mg/mg Normal [facility] Comment on above: Performed By: #### T 7, CMP, TSH ####[facility] [address] [address]DrLisette Abdul TSHon 11-23-2021 TSH 0.469 uIU/mL Normal 0.358-3.740 [facility] Comment on above: Performed By: #### T 7, CMP, TSH ####[facility] [address] [place], [place] [address]DrLisette Abdul CBC AUTO DIFFon 11-17-2021 BASO # 0.0 103/ul Normal 0.0-0.1 [facility] Comment on above: Performed By: #### C VDTBH #### [facility] [address] [place] [address] Dr. Grace Abdul Basophils/100 WBC (Bld) 0.2 % Normal 0.2-2.0 [facility] Comment on above: Performed By: #### C VDTBH #### [facility] [address] [place] [address] Dr. Grace Abdul EO # 0.1 103/ul Normal 0.0-0.7 [facility] Comment on above: Performed By: #### C VDTBH #### [facility] [address] [place] [address] Dr. Grace Abdul Eosinophils/100 WBC (Bld) 0.9 % Normal 0.9-7.0 [facility] Comment on above: Performed By: #### C VDTBH #### [facility] [address] [place] [address] Dr. Grace Abdul Erythrocyte distribution width (RBC) [Ratio] 12.8 % Normal 11.0-15.0 [facility] Comment on above: Performed By: #### C VDTBH #### [facility] [address] [place] [address] Dr. Grace Abdul Hematocrit (Bld) [Volume fraction] 35.2 % Critically low 36.0-48.0 [facility] Comment on above: Performed By: #### C VDTBH #### [facility] [address] [place] [address] Dr. Grace Abdul Hemoglobin (Bld) [Mass/Vol] 12.1 g/dL Normal 12.0-16.0 [facility] Comment on above: Performed By: #### C VDTBH #### [facility] [address] [place] [address] Dr. Grace Abdul IG # 0.05 10e3/ul Critically high 0.00-0.03 [place] Comment on above: Performed By: #### C VDTBH #### [facility] [address] [place] [address] Dr. Grace Abdul IG % 0.6 % Critically high 0.0-0.5 [facility] Comment on above: Performed By: #### C VDTBH #### [facility] [address] [place] [address] Dr. Grace Abdul LYMPH # 0.6 103/ul Critically low 1.2-3.8 [facility] Comment on above: Performed By: #### C VDTBH #### [facility] [address] [place] [address] Dr. Grace Abdul Lymphocytes/100 WBC (Bld) 7.4 % Critically low 20.5-60.0 [facility] Comment on above: Performed By: #### C VDTBH #### [facility] [address] [place] [address] Dr. Grace Abdul MANUAL DIFF REQ NO Normal [facility] Comment on above: Performed By: #### C VDTBH #### [facility] [address] [place] [address] Dr. Grace Abdul MCH (RBC) [Entitic mass] 31.5 pg Normal 26.7-34.0 [facility] Comment on above: Performed By: #### C VDTBH #### [facility] [address] [place] [address] Dr. Grace Abdul MCHC (RBC) [Mass/Vol] 34.4 g/dL Normal 29.9-35.2 [facility] Comment on above: Performed By: #### C VDTBH #### [facility] [address] [place] [address] Dr. Grace Abdul MCV (RBC) [Entitic vol] 91.7 fL Normal 81.0-99.0 [facility] Comment on above: Performed By: #### C VDTBH #### [facility] [address] [place] [address] Dr. Grace Abdul MONO # 1.0 103/ul Critically high 0.3-0.8 [facility] Comment on above: Performed By: #### C VDTBH #### [facility] [address] [place] [address] Dr. Grace Abdul Monocytes/100 WBC (Bld) 12.1 % Critically high 1.7-12.0 [facility] Comment on above: Performed By: #### C VDTBH #### [facility] [address] [place] [address] Dr. Grace Abdul NEUT # 6.3 103/ul Normal 1.4-6.5 [facility] Comment on above: Performed By: #### C VDTBH #### [facility] [address] [place] [address] Dr. Grace Abdul Neutrophils/100 WBC (Bld) 78.8 % Critically high 43.0-75.0 [facility] Comment on above: Performed By: #### C VDTBH #### [facility] [address] [address] [address] Grace Abdul Platelet mean volume (Bld) [Entitic vol] 9.1 fL Critically low 9.5-13.5 [facility] Comment on above: Performed By: #### C VDTBH #### [facility] [address] [place] [address] Dr. Grace Abdul PLT 281 103/ul Normal 150-450 [facility] Comment on above: Performed By: #### C VDTBH #### [facility] [address] [place] [address] Dr. Grace Abdul RBC 3.84 106/ul Critically low 4.20-5.40 [facility] Comment on above: Performed By: #### C VDTBH #### [facility] [address] [place] [address] Dr. Grace Abdul WBC 8.0 103/ul Normal 4.0-11.0 [facility] Comment on above: Performed By: #### C VDTBH #### [facility] [address] [place] [address] Dr. Grace Abdul MAGNESIUMon 11-17-2021 Magnesium [Mass/Vol] 1.9 mg/dL Normal 1.8-2.4 [facility] Comment on above: Performed By: #### C VDTBH #### [facility] [address] [place] [address] Dr. Grace Abdul PROF CHEM 8 (BAS METB)on Anion gap [Moles/Vol] 13.9 mmol/L Normal [facility] Comment on above: Performed By: #### C VDTBH #### [facility] [address] [place] [address] Dr. Grace Abdul Calcium [Mass/Vol] 8.7 mg/dL Normal 8.5-10.1 [facility] Comment on above: Performed By: #### C VDTBH #### [facility] [address] [place] [address] Dr. Grace Abdul Chloride [Moles/Vol] 101 mmol/L Normal 98-107 [facility] Comment on above: Performed By: #### C VDTBH #### [facility] [address] [address] [address] Grace Abdul CO2 [Moles/Vol] 24.3 mmol/L Normal 21.0-32.0 [facility] Comment on above: Performed By: #### C VDTBH #### [facility] [address] [address] [address] Grace Abdul Creatinine [Mass/Vol] 0.89 mg/dL Normal 0.55-1.02 [facility] Comment on above: Performed By: #### C VDTBH #### [facility] [address] [place] [address] Dr. Grace Abdul EGFR-AF MAURITANIAN >60 Normal >=60 [facility] Comment on above: Performed By: #### C VDTBH #### [facility] [address] [address] [address] Grace Abdul EGFR-NON AF MAURITANIAN >60 Normal >=60 [facility] Comment on above: Performed By: #### C VDTBH #### [facility] [address] [place] [address] Dr. Grace Abdul Glucose [Mass/Vol] 97 mg/dL Normal 74-106 [facility] Comment on above: Performed By: #### C VDTBH #### [facility] [address] [place] [address] Dr. Grace Abdul Potassium [Moles/Vol] 3.2 mmol/L Critically low 3.5-5.1 [facility] Comment on above: Performed By: #### C VDTBH #### [facility] [address] [address] [address] Grace Abdul Sodium [Moles/Vol] 136 mmol/L Normal 136-145 [facility] Comment on above: Performed By: #### C VDTBH #### [facility] [address] [place] [address] Dr. Grace Abdul Urea nitrogen [Mass/Vol] 14.0 mg/dL Normal 7.0-18.0 [facility] Comment on above: Performed By: #### C VDTBH #### [facility] [address] [place] [address] Dr. Grace Abdul Urea nitrogen/Creatinine [Mass ratio] 15.7 mg/mg Normal [facility] Comment on above: Performed By: #### C VDTBH #### [facility] [address] [place] [address] Dr. Grace Abdul CBC AUTO DIFFon 11-16-2021 BASO # 0.0 103/ul Normal 0.0-0.1 [facility] Comment on above: Performed By: #### B MP #### [facility] [address] [place] [address] Dr. Grace Abdul Basophils/100 WBC (Bld) 0.2 % Normal 0.2-2.0 [facility] Comment on above: Performed By: #### B MP #### [facility] [address] [place] [address] Dr. Grace Abdul EO # 0.0 103/ul Normal 0.0-0.7 [facility] Comment on above: Performed By: #### B MP #### [facility] [address] [place] [address] Dr. Graec Abdul Eosinophils/100 WBC (Bld) 0.5 % Critically low 0.9-7.0 [facility] Comment on above: Performed By: #### B MP #### [facility] [address] [place] [address] Dr. Grace Abdul Erythrocyte distribution width (RBC) [Ratio] 12.4 % Normal 11.0-15.0 [facility] Comment on above: Performed By: #### B MP #### [facility] [address] [place] [address] Dr. Grace Abdul Hematocrit (Bld) [Volume fraction] 33.6 % Critically low 36.0-48.0 [facility] Comment on above: Performed By: #### B MP #### [facility] [address] [place] [address] Dr. Grace Abdul Hemoglobin (Bld) [Mass/Vol] 11.8 g/dL Critically low 12.0-16.0 [facility] Comment on above: Performed By: #### B MP #### [facility] [address] [address] [address] Grace Abdul IG # 0.04 10e3/ul Critically high 0.00-0.03 [place] Comment on above: Performed By: #### B MP #### [facility] [address] [address] [address] Grace Abdul IG % 0.7 % Critically high 0.0-0.5 [facility] Comment on above: Performed By: #### B MP #### [facility] [address] [place] [address] Dr. Grace Abdul LYMPH # 0.7 103/ul Critically low 1.2-3.8 [facility] Comment on above: Performed By: #### B MP #### [facility] [address] [place] [address] Dr. Grace Abdul Lymphocytes/100 WBC (Bld) 11.1 % Critically low 20.5-60.0 [facility] Comment on above: Performed By: #### B MP #### [facility] [address] [place] [address] Dr. Grace Abdul MANUAL DIFF REQ NO Normal [facility] Comment on above: Performed By: #### B MP #### [facility] [address] [address] [address] Grace Abdul MCH (RBC) [Entitic mass] 31.5 pg Normal 26.7-34.0 [facility] Comment on above: Performed By: #### B MP #### [facility] [address] [address] [address] Grace Abdul MCHC (RBC) [Mass/Vol] 35.1 g/dL Normal 29.9-35.2 [facility] Comment on above: Performed By: #### B MP #### [facility] [address] [place] [address] Dr. Grace Abdul MCV (RBC) [Entitic vol] 89.6 fL Normal 81.0-99.0 [facility] Comment on above: Performed By: #### B MP #### [facility] [address] [place] [address] Dr. Grace Abdul MONO # 0.9 103/ul Critically high 0.3-0.8 [facility] Comment on above: Performed By: #### B MP #### [facility] [address] [place] [address] Dr. Grace Abdul Monocytes/100 WBC (Bld) 14.0 % Critically high 1.7-12.0 [facility] Comment on above: Performed By: #### B MP #### [facility] [address] [place] [address] Dr. Grace Abdul NEUT # 4.5 103/ul Normal 1.4-6.5 [facility] Comment on above: Performed By: #### B MP #### [facility] [address] [place] [address] Dr. Grace Abdul Neutrophils/100 WBC (Bld) 73.5 % Normal 43.0-75.0 [facility] Comment on above: Performed By: #### B MP #### [facility] [address] [place] [address] Dr. Grace Abdul Platelet mean volume (Bld) [Entitic vol] 9.3 fL Critically low 9.5-13.5 [facility] Comment on above: Performed By: #### B MP #### [facility] [address] [place] [address] Dr. Grace Abdul PLT 292 103/ul Normal 150-450 [facility] Comment on above: Performed By: #### B MP #### [facility] [address] [place] [address] Dr. Grace Abdul RBC 3.75 106/ul Critically low 4.20-5.40 [facility] Comment on above: Performed By: #### B MP #### [facility] [address] [place] [address] Dr. Grace Abdul WBC 6.1 103/ul Normal 4.0-11.0 [facility] Comment on above: Performed By: #### B MP #### [facility] [address] [address] [address] Grace Abdul CULTURE URINEon 11-16-2021 CULTURE URINE Culture Observations : LIGHT GROWTH OF MIXED GENITAL ALANIS. NO POTENTIAL PATHOGENS SEEN. Normal [facility] Comment on above: Performed By: #### U RCX ####[facility] [address] [address]Dr. Grace Abdul ER URINE PROFILEon Bilirubin Ql (U) Negative Normal NEGATIVE [facility] Comment on above: Performed By: #### C VDTBH #### [facility] [address] [place] [address] Dr. Grace Abdul Clarity (U) CLEAR Normal CLEAR [facility] Comment on above: Performed By: #### C VDTBH #### [facility] [address] [place] [address] Dr. Grace Abdul Color (U) LT. YELLOW Normal YELLOW [facility] Comment on above: Performed By: #### C VDTBH #### [facility] [address] [place] [address] Dr. Grace Abdul ERUAly A micrscopic examination will be performed if indicated. Normal [facility] Comment on above: Performed By: #### C VDTBH #### [facility] [address] [place] [address] Dr. Grace Abdul Glucose Ql (U) Negative Normal NEGATIVE [facility] Comment on above: Performed By: #### C VDTBH #### [facility] [address] [place] [address] Dr. Grace Abdul Hemoglobin Ql (U) SMALL Abnormal NEGATIVE [facility] Comment on above: Performed By: #### C VDTBH #### [facility] [address] [place] [address] Dr. Grace Abdul Ketones Ql (U) 40 mg/dl Abnormal NEGATIVE [facility] Comment on above: Performed By: #### C VDTBH #### [facility] [address] [place] [address] Dr. Grace Abdul LEUKOCYTES SMALL Abnormal NEGATIVE [facility] Comment on above: Performed By: #### C VDTBH #### [facility] [address] [place] [address] Dr. Grace Abdul Nitrite Ql (U) Negative Normal NEGATIVE [facility] Comment on above: Performed By: #### C VDTBH #### [facility] [address] [place] [address] Dr. Grace Abdul pH (U) 7.0 [pH] Normal 5-9 [facility] Comment on above: Performed By: #### C VDTBH #### [facility] [address] [place] [address] Dr. Grace Abdul SPEC GRAVITY 1.010 Normal 1.005-<=1.025 [facility] Comment on above: Performed By: #### C VDTBH #### [facility] [address] [place] [address] Dr. Grace Abdul UA PROTEIN Negative Normal NEGATIVE/ TRACE [facility] Comment on above: Performed By: #### C VDTBH #### [facility] [address] [place] [address] Dr. Grace Abdul UR MICRO IND INDICATED Normal [facility] Comment on above: Performed By: #### C VDTBH #### [facility] [address] [place] [address] Dr. Grace Abdul Urobilinogen Qn (U) 0.2 {Ashley'U}/dL Normal 0.2 - 1. 0 [facility] Comment on above: Performed By: #### C VDTBH #### [facility] [address] [place] [address] Dr. Grace Abdul MAGNESIUMon 11-16-2021 Magnesium [Mass/Vol] 1.8 mg/dL Normal 1.8-2.4 [facility] Comment on above: Performed By: #### C VDTBH #### [facility] [address] [place] [address] Dr. Grace Abdul PROF CHEM 8 (BAS METB)on Anion gap [Moles/Vol] 12.7 mmol/L Normal [facility] Comment on above: Performed By: #### B MP #### [facility] [address] [address] [address] Grace Abdul Calcium [Mass/Vol] 8.3 mg/dL Critically low 8.5-10.1 [facility] Comment on above: Performed By: #### B MP #### [facility] [address] [address] [address] Grace Abdul CO2 [Moles/Vol] 24.4 mmol/L Normal 21.0-32.0 [facility] Comment on above: Performed By: #### B MP #### [facility] [address] [place] [address] Dr. Grace Abdul Creatinine [Mass/Vol] 1.16 mg/dL Critically high 0.55-1.02 [facility] Comment on above: Performed By: #### B MP #### [facility] [address] [place] [address] Dr. Grace Abdul EGFR-AF MAURITANIAN 54 mL/min/1.73m2 Critically low >=60 [facility] Comment on above: Performed By: #### B MP #### [facility] [address] [place] [address] Dr. Grace Abdul EGFR-NON AF MAURITANIAN 45 mL/min/1.73m2 Critically low >=60 [facility] Comment on above: Performed By: #### B MP #### [facility] [address] [place] [address] Dr. Grace Abdul Glucose [Mass/Vol] 116 mg/dL Critically high 74-106 T [facility] Comment on above: Performed By: #### B MP #### [facility] [address] [address] [address] Grace Abdul Urea nitrogen [Mass/Vol] 20.0 mg/dL Critically high 7.0-18.0 [facility] Comment on above: Performed By: #### B MP #### [facility] [address] [place] [address] Dr. Grace Abdul Urea nitrogen/Creatinine [Mass ratio] 17.2 mg/mg Normal [facility] Comment on above: Performed By: #### B MP #### [facility] [address] [address] [address] Grace Abdul Anion gap [Moles/Vol] 10.0 mmol/L Normal [facility] Comment on above: Performed By: #### B MP #### [facility] [address] [address] [address] Grace Abdul Calcium [Mass/Vol] 8.8 mg/dL Normal 8.5-10.1 [facility] Comment on above: Performed By: #### B MP #### [facility] [address] [address] [address] Grace Abdul Chloride [Moles/Vol] 96 mmol/L Critically low 98-107 [facility] Comment on above: Performed By: #### B MP #### [facility] [address] [address] [address] Grace Abdul CO2 [Moles/Vol] 26.1 mmol/L Normal 21.0-32.0 [facility] Comment on above: Performed By: #### B MP #### [facility] [address] [address] [address] Grace Abdul Creatinine [Mass/Vol] 1.11 mg/dL Critically high 0.55-1.02 [facility] Comment on above: Performed By: #### B MP #### [facility] [address] [address] [address] Grace Abdul EGFR-AF MAURITANIAN 57 mL/min/1.73m2 Critically low >=60 [facility] Comment on above: Performed By: #### B MP #### [facility] [address] [address] [address] Grace Abdul EGFR-NON AF MAURITANIAN 47 mL/min/1.73m2 Critically low >=60 [facility] Comment on above: Performed By: #### B MP #### [facility] [address] [address] [address] Grace Abdul Glucose [Mass/Vol] 94 mg/dL Normal 74-106 [facility] Comment on above: Performed By: #### B MP #### [facility] [address] [address] [address] Grace Abdul Potassium [Moles/Vol] 3.1 mmol/L Critically low 3.5-5.1 [facility] Comment on above: Performed By: #### B MP #### [facility] [address] [place] [address] Dr. Grace Abdul Performed By: #### C VDTBH #### [facility] [address] [place] [address] Dr. Grace Abdul Sodium [Moles/Vol] 129 mmol/L Critically low 136-145 Th [facility] Comment on above: Performed By: #### B MP #### [facility] [address] [place] [address] Dr. Grace Abdul Urea nitrogen [Mass/Vol] 16.0 mg/dL Normal 7.0-18.0 [facility] Comment on above: Performed By: #### B MP #### [facility] [address] [place] [address] Dr. Grace Abdul Urea nitrogen/Creatinine [Mass ratio] 14.4 mg/mg Normal [facility] Comment on above: Performed By: #### B MP #### [facility] [address] [place] [address] Dr. Grace Abudl Anion gap [Moles/Vol] 12.6 mmol/L Normal [facility] Comment on above: Performed By: #### C VDTBH #### [facility] [address] [place] [address] Dr. Grace Abdul Calcium [Mass/Vol] 8.6 mg/dL Normal 8.5-10.1 [facility] Comment on above: Performed By: #### C VDTBH #### [facility] [address] [place] [address] Dr. Grace Abdul Chloride [Moles/Vol] 95 mmol/L Critically low 98-107 [facility] Comment on above: Performed By: #### B MP #### [facility] [address] [place] [address] Dr. Grace Abdul Performed By: #### C VDTBH #### [facility] [address] [address] [address] Grace Abdul CO2 [Moles/Vol] 22.5 mmol/L Normal 21.0-32.0 [facility] Comment on above: Performed By: #### C VDTBH #### [facility] [address] [address] [address] Grace Abdul Creatinine [Mass/Vol] 0.95 mg/dL Normal 0.55-1.02 [facility] Comment on above: Performed By: #### C VDTBH #### [facility] [address] [address] [address] Grace Abdul EGFR-AF MAURITANIAN >60 Normal >=60 [facility] Comment on above: Performed By: #### C VDTBH #### [facility] [address] [address] [address] Grace Abdul EGFR-NON AF MAURITANIAN 56 mL/min/1.73m2 Critically low >=60 [facility] Comment on above: Performed By: #### C VDTBH #### [facility] [address] [address] [address] Grace Abdul Glucose [Mass/Vol] 92 mg/dL Normal 74-106 [facility] Comment on above: Performed By: #### C VDTBH #### [facility] [address] [address] [address] Grace Abdul Sodium [Moles/Vol] 127 mmol/L Critically low 136-145 [facility] Comment on above: Performed By: #### C VDTBH #### [facility] [address] [address] [address] Grace Abdul Urea nitrogen [Mass/Vol] 18.0 mg/dL Normal 7.0-18.0 [facility] Comment on above: Performed By: #### C VDTBH #### [facility] [address] [address] [address] Grace Abdul Urea nitrogen/Creatinine [Mass ratio] 18.9 mg/mg Normal [facility] Comment on above: Performed By: #### C VDTBH #### [facility] [address] [place] [address] Dr. Grace Abdul URINE MICROSCOPIC ONLYon BACTERIA TRACE Abnormal NONE SEEN [facility] Comment on above: Performed By: #### C VDTBH #### [facility] [address] [place] [address] Dr. Grace Abdul Bacteria identified Cx Nom (U) INDICATED Normal [facility] Comment on above: Performed By: #### C VDTBH #### [facility] [address] [place] [address] Dr. Grace Abdul CAST NONE SEEN Normal NONE SEEN [facility] Comment on above: Performed By: #### C VDTBH #### [facility] [address] [place] [address] Dr. Grace Abdul Crystals LM Nom (Urine sed) NONE SEEN Normal NONE SEEN [facility] Comment on above: Performed By: #### C VDTBH #### [facility] [address] [place] [address] Dr. Grace Abdul Epithelial cells LM Ql (Urine sed) FEW Abnormal NONE SEEN /RARE [facility] Comment on above: Performed By: #### C VDTBH #### [facility] [address] [place] [address] Dr. Grace Abdul MUCOUS NONE SEEN Normal NONE SEEN [facility] Comment on above: Performed By: #### C VDTBH #### [facility] [address] [place] [address] Dr. Grace Abdul RBC 2-5 Abnormal 0-2 [facility] Comment on above: Performed By: #### C VDTBH #### [facility] [address] [place] [address] Dr. Grace Abdul WBC 5-10 Abnormal NONE SEEN [facility] Comment on above: Performed By: #### C VDTBH #### [facility] [address] [place] [address] Dr. Grace Abdul AMYLASEon 11-15-2021 Amylase [Catalytic activity/Vol] 94 U/L Normal 25-115 [facility] Comment on above: Performed By: #### C VDTBH #### [facility] [address] [place] [address] Dr. Grace Abdul BNPon 11-15-2021 Natriuretic peptide B (Bld) [Mass/Vol] 357.0 pg/mL Normal <=1,800.0 [facility] Comment on above: Performed By: #### C VDTBH #### [facility] [address] [place] [address] Dr. Grace Abdul CARDIAC JOVITA ADMITon 022 CK [Catalytic activity/Vol] 66 U/L Normal 26-192 [facility] Comment on above: Performed By: #### C VDTBH #### [facility] [address] [place] [address] Dr. Grace Abdul CK.MB [Mass/Vol] 2.19 ng/mL Normal <=3.60 [facility] Comment on above: Performed By: #### C VDTBH #### [facility] [address] [place] [address] Dr. Grace Abdul HSTROP 9.5 pg/mL Normal 4.0-51.3 [facility] Comment on above: Result Comment: CUT- OFF POINTS HAVE BEEN ESTABLISHED BASED ON THE FOURTH UNIVERSAL DEFINITIONS OF MYOCARDIAL INFARCTION. THE UPPER REFERENCE LIMIT (URL) OF TROPONIN, DEFINED THE 99TH PERCENTILE OF cTnI DISTRIBUTION IN A REFERENCE POPULATION, HAS BEEN CONFIRMED THE DECISION THRESHOLD FOR DC DIAGNOSIS. Performed By: #### C VDTBH #### [facility] [address] [place] [address] Dr. Grace Abdul JOHNNA 73 ng/mL Normal 9-82 [facility] Comment on above: Performed By: #### C VDTBH #### [facility] [address] [place] [address] Dr. Grace Abdul CBC AUTO DIFFon 11-15-2021 BASO # 0.0 103/ul Normal 0.0-0.1 [facility] Comment on above: Performed By: #### B MP #### [facility] [address] [place] [address] Dr. Grace Abdul Basophils/100 WBC (Bld) 0.1 % Critically low 0.2-2.0 [facility] Comment on above: Performed By: #### B MP #### [facility] [address] [place] [address] Dr. Grace Abdul EO # 0.0 103/ul Normal 0.0-0.7 [facility] Comment on above: Performed By: #### B MP #### [facility] [address] [place] [address] Dr. Grace Abdul Eosinophils/100 WBC (Bld) 0.1 % Critically low 0.9-7.0 [facility] Comment on above: Performed By: #### B MP #### [facility] [address] [place] [address] Dr. Grace Abdul Erythrocyte distribution width (RBC) [Ratio] 11.9 % Normal 11.0-15.0 [facility] Comment on above: Performed By: #### B MP #### [facility] [address] [place] [address] Dr. Grace Abdul Hematocrit (Bld) [Volume fraction] 36.6 % Normal 36.0-48.0 [facility] Comment on above: Performed By: #### B MP #### [facility] [address] [place] [address] Dr. Grace Abdul Hemoglobin (Bld) [Mass/Vol] 13.2 g/dL Normal 12.0-16.0 [facility] Comment on above: Performed By: #### B MP #### [facility] [address] [place] [address] Dr. Grace Abdul IG # 0.05 10e3/ul Critically high 0.00-0.03 [facility] Comment on above: Performed By: #### B MP #### [facility] [address] [place] [address] Dr. Grace Abdul IG % 0.7 % Critically high 0.0-0.5 [facility] Comment on above: Performed By: #### B MP #### [facility] [address] [place] [address] Dr. Grace Abdul LYMPH # 0.7 103/ul Critically low 1.2-3.8 [facility] Comment on above: Performed By: #### B MP #### [facility] [address] [place] [address] Dr. Grace Abdul Lymphocytes/100 WBC (Bld) 9.8 % Critically low 20.5-60.0 [facility] Comment on above: Performed By: #### B MP #### [facility] [address] [place] [address] Dr. Grace Abdul MANUAL DIFF REQ NO Normal [facility] Comment on above: Performed By: #### B MP #### [facility] [address] [place] [address] Dr. Grace Abdul MCH (RBC) [Entitic mass] 31.5 pg Normal 26.7-34.0 [facility] Comment on above: Performed By: #### B MP #### [facility] [address] [place] [address] Dr. Grace Abdul MCHC (RBC) [Mass/Vol] 36.1 g/dL Critically high 29.9-35.2 [facility] Comment on above: Performed By: #### B MP #### [facility] [address] [place] [address] Dr. Grace Abdul MCV (RBC) [Entitic vol] 87.4 fL Normal 81.0-99.0 [facility] Comment on above: Performed By: #### B MP #### [facility] [address] [place] [address] Dr. Grace Abdul MONO # 0.9 103/ul Critically high 0.3-0.8 [facility] Comment on above: Performed By: #### B MP #### [facility] [address] [place] [address] Dr. Grace Abdul Monocytes/100 WBC (Bld) 12.4 % Critically high 1.7-12.0 [facility] Comment on above: Performed By: #### B MP #### [facility] [address] [place] [address] Dr. Grace Abdul NEUT # 5.8 103/ul Normal 1.4-6.5 [facility] Comment on above: Performed By: #### B MP #### [facility] [address] [place] [address] Dr. Grace Abdul Neutrophils/100 WBC (Bld) 76.9 % Critically high 43.0-75.0 [facility] Comment on above: Performed By: #### B MP #### [facility] [address] [place] [address] Dr. Grace Abdul Platelet mean volume (Bld) [Entitic vol] 9.0 fL Critically low 9.5-13.5 [facility] Comment on above: Performed By: #### B MP #### [facility] [address] [place] [address] Dr. Grace Abdul PLT 361 103/ul Normal 150-450 [facility] Comment on above: Performed By: #### B MP #### [facility] [address] [place] [address] Dr. Grace Abdul RBC 4.19 106/ul Critically low 4.20-5.40 [facility] Comment on above: Performed By: #### B MP #### [facility] [address] [place] [address] Dr. Grace Abdul WBC 7.6 103/ul Normal 4.0-11.0 [facility] Comment on above: Performed By: #### B MP #### [facility] [address] [place] [address] Dr. Grace Abdul Covid-19 PCR ([facility])on 10-23 SARS-CoV-2 (COVID-19) RNA LUISITO+probe Ql (Unsp spec) Not detected Normal NOT DETECTED [facility] Comment on above: Result Comment: When [...] for this test is supported by the [place] of Health and Human Service's declaration that [...] used). Performed By: #### C VDTBH #### [facility] [address] [place] [address] Dr. Grace Abdul LIPASEon 11-15-2021 Lipase [Catalytic activity/Vol] 178.0 U/L Normal 73.0-393.0 [facility] Comment on above: Performed By: #### C VDTBH #### [facility] [address] [place] [address] Dr. Grace Abdul PROF 14(COMP METB)on 022 Albumin [Mass/Vol] 4.1 g/dL Normal 3.4-5.0 [facility] Comment on above: Performed By: #### C VDTBH #### [facility] [address] [place] [address] Dr. Grace Abdul Albumin/Globulin [Mass ratio] 1.2 {ratio} Normal [facility] Comment on above: Performed By: #### C VDTBH #### [facility] [address] [place] [address] Dr. Grace Abdul ALP [Catalytic activity/Vol] 63 U/L Normal 46-116 [facility] Comment on above: Performed By: #### C VDTBH #### [facility] [address] [place] [address] Dr. Grace Abdul ALT [Catalytic activity/Vol] 29 U/L Normal 14-59 [facility] Comment on above: Performed By: #### C VDTBH #### [facility] [address] [place] [address] Dr. Grace Abdul Anion gap [Moles/Vol] 14.8 mmol/L Normal [facility] Comment on above: Performed By: #### C VDTBH #### [facility] [address] [address] [address] Grace Abdul AST [Catalytic activity/Vol] 25 U/L Normal 15-37 [facility] Comment on above: Performed By: #### C VDTBH #### [facility] [address] [address] [address] Grace Abdul Bilirubin [Mass/Vol] 0.6 mg/dL Normal 0.2-1.0 [facility] Comment on above: Performed By: #### C VDTBH #### [facility] [address] [address] [address] Grace Abdul Calcium [Mass/Vol] 9.4 mg/dL Normal 8.5-10.1 [facility] Comment on above: Performed By: #### C VDTBH #### [facility] [address] [address] [address] Grace Abdul Chloride [Moles/Vol] 83 mmol/L Critically low 98-107 [facility] Comment on above: Performed By: #### C VDTBH #### [facility] [address] [address] [address] Grace Abdul CO2 [Moles/Vol] 24.4 mmol/L Normal 21.0-32.0 [facility] Comment on above: Performed By: #### C VDTBH #### [facility] [address] [address] [address] Grace Abdul Creatinine [Mass/Vol] 1.15 mg/dL Critically high 0.55-1.02 [facility] Comment on above: Performed By: #### C VDTBH #### [facility] [address] [address] [address] Grace Abdul EGFR-AF MAURITANIAN 55 mL/min/1.73m2 Critically low >=60 [facility] Comment on above: Performed By: #### C VDTBH #### [facility] [address] [address] [address] Grace Abdul EGFR-NON AF MAURITANIAN 45 mL/min/1.73m2 Critically low >=60 [facility] Comment on above: Performed By: #### C VDTBH #### [facility] [address] [place] [address] Dr. Grace Abdul Globulin (S) [Mass/Vol] 3.4 g/dL Normal [facility] Comment on above: Performed By: #### C VDTBH #### [facility] [address] [place] [address] Dr. Grace Abdul Glucose [Mass/Vol] 147 mg/dL Critically high 74-106 T [facility] Comment on above: Performed By: #### C VDTBH #### [facility] [address] [place] [address] Dr. Grace Abdul Potassium [Moles/Vol] 3.2 mmol/L Critically low 3.5-5.1 [facility] Comment on above: Performed By: #### C VDTBH #### [facility] [address] [place] [address] Dr. Grace Abdul Protein [Mass/Vol] 7.5 g/dL Normal 6.4-8.2 [facility] Comment on above: Performed By: #### C VDTBH #### [facility] [address] [place] [address] Dr. Grace Abdul Urea nitrogen/Creatinine [Mass ratio] 21.7 mg/mg Normal [facility] Comment on above: Performed By: #### C VDTBH #### [facility] [address] [place] [address] Dr. Grace Abdul PROF CHEM 8 (BAS METB)on Anion gap [Moles/Vol] 13.6 mmol/L Normal [facility] Comment on above: Performed By: #### C VDTBH #### [facility] [address] [place] [address] Dr. Grace Abdul Calcium [Mass/Vol] 8.8 mg/dL Normal 8.5-10.1 [facility] Comment on above: Performed By: #### C VDTBH #### [facility] [address] [place] [address] Dr. Grace Abdul Chloride [Moles/Vol] 88 mmol/L Critically low 98-107 [facility] Comment on above: Performed By: #### C VDTBH #### [facility] [address] [place] [address] Dr. Grace Abdul CO2 [Moles/Vol] 21.8 mmol/L Normal 21.0-32.0 [facility] Comment on above: Performed By: #### C VDTBH #### [facility] [address] [address] [address] Grace Abdul Creatinine [Mass/Vol] 1.11 mg/dL Critically high 0.55-1.02 [facility] Comment on above: Performed By: #### C VDTBH #### [facility] [address] [place] [address] Dr. Grace Abdul EGFR-AF MAURITANIAN 57 mL/min/1.73m2 Critically low >=60 [facility] Comment on above: Performed By: #### C VDTBH #### [facility] [address] [place] [address] Dr. Grace Abdul EGFR-NON AF MAURITANIAN 47 mL/min/1.73m2 Critically low >=60 [facility] Comment on above: Performed By: #### C VDTBH #### [facility] [address] [place] [address] Dr. Grace Abdul Glucose [Mass/Vol] 132 mg/dL Critically high 74-106 [facility] Comment on above: Performed By: #### C VDTBH #### [facility] [address] [place] [address] Dr. Grace Abdul Potassium [Moles/Vol] 3.4 mmol/L Critically low 3.5-5.1 [facility] Comment on above: Performed By: #### C VDTBH #### [facility] [address] [place] [address] Dr. Grace Abdul Sodium [Moles/Vol] 120 mmol/L Critically low 136-145 Th [facility] Comment on above: Result Comment: Test Repeated. Critical Value Verified Performed By: #### C VDTBH #### [facility] [address] [address] [address] Grace Abdul Urea nitrogen [Mass/Vol] 25.0 mg/dL Critically high 7.0-18.0 [facility] Comment on above: Performed By: #### C VDTBH #### [facility] [address] [address] [address] Grace Abdul Urea nitrogen/Creatinine [Mass ratio] 22.5 mg/mg Normal [facility] Comment on above: Performed By: #### C VDTBH #### [facility] [address] [place] [address] Dr. Grace Abdul PROTIMEon 11-15-2021 INR Coag (PPP) [Relative time] 0.94 {INR} Normal [facility] Comment on above: Performed By: #### C VDTBH #### [facility] [address] [place] [address] Dr. Grace Abdul INR GUIDELINES SEE BELOW Normal [facility] Comment on above: Result Comment: DURAN RED INR: 2.0 - 3.0 CONDITIONS NOT LISTED BELOW 2.5 - 3.5 FOR PROSTHETIC HEART VALVE REPLACEMENT 2.5 - 3.5 RECURRENT THROMBOSIS Performed By: #### C VDTBH #### [facility] [address] [place] [address] Dr. Grace Abdul PT Coag (PPP) [Time] 10.2 s Normal 9.0-11.6 [facility] Comment on above: Performed By: #### C VDTBH #### [facility] [address] [place] [address] Dr. Grace Abdul XR ABD FLAT UP_PA [...] JARET LINARES Date: 2021-11-15 13:56 Normal [facility] BNPon 11-11-2021 Natriuretic peptide B (Bld) [Mass/Vol] 546.0 pg/mL Normal <=1,800.0 [facility] Comment on above: Performed By: #### C MP, TSH, HSTROPN, BNP ####[facility] [id number] [place], [place] [address]SpDr. Grace Abdul CBC AUTO DIFFon 11-11-2021 BASO # 0.0 103/ul Normal 0.0-0.1 [facility] Comment on above: Performed By: #### C BC #### [facility] [address] [address] [address] Grace Abdul Basophils/100 WBC (Bld) 0.3 % Normal 0.2-2.0 [facility] Comment on above: Performed By: #### C BC #### [facility] [address] [address] [address] Grace Abdul EO # 0.0 103/ul Normal 0.0-0.7 [facility] Comment on above: Performed By: #### C BC #### [facility] [address] [address] [address] Grace Abdul Eosinophils/100 WBC (Bld) 0.5 % Critically low 0.9-7.0 [facility] Comment on above: Performed By: #### C BC #### [facility] [address] [address] [address] Grace Abdul Erythrocyte distribution width (RBC) [Ratio] 12.9 % Normal 11.0-15.0 [facility] Comment on above: Performed By: #### C BC #### [facility] [address] [address] [address] Grace Abdul Hematocrit (Bld) [Volume fraction] 36.1 % Normal 36.0-48.0 [facility] Comment on above: Performed By: #### C BC #### [facility] [address] [place] [address] Dr. Grace Abdul Hemoglobin (Bld) [Mass/Vol] 12.3 g/dL Normal 12.0-16.0 [facility] Comment on above: Performed By: #### C BC #### [facility] [address] [place] [address] Dr. Grace Abdul IG # 0.01 10e3/ul Normal 0.00-0.03 [facility] Comment on above: Performed By: #### C BC #### [facility] [address] [place] [address] Dr. Grace Abdul IG % 0.3 % Normal 0.0-0.5 [facility] Comment on above: Performed By: #### C BC #### [facility] [address] [place] [address] Dr. Grace Abdul LYMPH # 0.6 103/ul Critically low 1.2-3.8 [facility] Comment on above: Performed By: #### C BC #### [facility] [address] [place] [address] Dr. Grace Abdul Lymphocytes/100 WBC (Bld) 14.8 % Critically low 20.5-60.0 [facility] Comment on above: Performed By: #### C BC #### [facility] [address] [place] [address] Dr. Grace Abdul MANUAL DIFF REQ NO Normal [facility] Comment on above: Performed By: #### C BC #### [facility] [address] [place] [address] Dr. Grace Abudl MCH (RBC) [Entitic mass] 31.5 pg Normal 26.7-34.0 [facility] Comment on above: Performed By: #### C BC #### [facility] [address] [place] [address] Dr. Grace Abdul MCHC (RBC) [Mass/Vol] 34.1 g/dL Normal 29.9-35.2 [facility] Comment on above: Performed By: #### C BC #### [facility] [address] [place] [address] Dr. Grace Abdul MCV (RBC) [Entitic vol] 92.6 fL Normal 81.0-99.0 [facility] Comment on above: Performed By: #### C BC #### [facility] [address] [place] [address] Dr. Grace Abdul MONO # 0.5 103/ul Normal 0.3-0.8 [facility] Comment on above: Performed By: #### C BC #### [facility] [address] [place] [address] Dr. Grace Abdul Monocytes/100 WBC (Bld) 13.5 % Critically high 1.7-12.0 [facility] Comment on above: Performed By: #### C BC #### [facility] [address] [place] [address] Dr. Grace Abdul NEUT # 2.7 103/ul Normal 1.4-6.5 [facility] Comment on above: Performed By: #### C BC #### [facility] [address] [place] [address] Dr. Grace Abdul Neutrophils/100 WBC (Bld) 70.6 % Normal 43.0-75.0 [facility] Comment on above: Performed By: #### C BC #### [facility] [address] [place] [address] Dr. Grace Abdul Platelet mean volume (Bld) [Entitic vol] 9.2 fL Critically low 9.5-13.5 [facility] Comment on above: Performed By: #### C BC #### [facility] [address] [place] [address] Dr. Grace Abdul PLT 279 103/ul Normal 150-450 [facility] Comment on above: Performed By: #### C BC #### [facility] [address] [place] [address] Dr. Grace Abdul RBC 3.90 106/ul Critically low 4.20-5.40 [facility] Comment on above: Performed By: #### C BC #### [facility] [address] [place] [address] Dr. Grace Abdul WBC 3.9 103/ul Critically low 4.0-11.0 [facility] Comment on above: Performed By: #### C BC #### [facility] [address] [place] [address] Dr. Grace Abdul PROF 14(COMP METB)on 022 Albumin [Mass/Vol] 3.3 g/dL Critically low 3.4-5.0 [facility] Comment on above: Performed By: #### C MP, TSH, HSTROPN, BNP #### [facility] [address] [place] [address] Dr. Grace Abdul Albumin/Globulin [Mass ratio] 1.2 {ratio} Normal [facility] Comment on above: Performed By: #### C MP, TSH, HSTROPN, BNP #### [facility] [address] [place] [address] Dr. Grace Abdul ALP [Catalytic activity/Vol] 60 U/L Normal 46-116 [facility] Comment on above: Performed By: #### C MP, TSH, HSTROPN, BNP #### [facility] [address] [place] [address] Dr. Grace Abdul ALT [Catalytic activity/Vol] 26 U/L Normal 14-59 [facility] Comment on above: Performed By: #### C MP, TSH, HSTROPN, BNP #### [facility] [address] [place] [address] Dr. Grace Abdul Anion gap [Moles/Vol] 14.8 mmol/L Normal [facility] Comment on above: Performed By: #### C MP, TSH, HSTROPN, BNP #### [facility] [address] [place] [address] Dr. Grace Abdul AST [Catalytic activity/Vol] 20 U/L Normal 15-37 [facility] Comment on above: Performed By: #### C MP, TSH, HSTROPN, BNP #### [facility] [address] [place] [address] Dr. Grace Abdul Bilirubin [Mass/Vol] 0.3 mg/dL Normal 0.2-1.0 [facility] Comment on above: Performed By: #### C MP, TSH, HSTROPN, BNP #### [facility] [address] [address] [address] Grace Abdul Calcium [Mass/Vol] 8.2 mg/dL Critically low 8.5-10.1 [facility] Comment on above: Performed By: #### C MP, TSH, HSTROPN, BNP #### [facility] [address] [place] [address] Dr. Grace Abdul Chloride [Moles/Vol] 100 mmol/L Normal 98-107 [facility] Comment on above: Performed By: #### C MP, TSH, HSTROPN, BNP #### [facility] [address] [place] [address] Dr. Grace Abdul CO2 [Moles/Vol] 23.8 mmol/L Normal 21.0-32.0 [facility] Comment on above: Performed By: #### C MP, TSH, HSTROPN, BNP #### [facility] [address] [place] [address] Dr. Grace Abdul Creatinine [Mass/Vol] 1.27 mg/dL Critically high 0.55-1.02 [facility] Comment on above: Performed By: #### C MP, TSH, HSTROPN, BNP #### [facility] [address] [place] [address] Dr. Grace Abdul EGFR-AF MAURITANIAN 49 mL/min/1.73m2 Critically low >=60 [facility] Comment on above: Performed By: #### C MP, TSH, HSTROPN, BNP #### [facility] [address] [place] [address] Dr. Grace Abdul EGFR-NON AF MAURITANIAN 40 mL/min/1.73m2 Critically low >=60 [facility] Comment on above: Performed By: #### C MP, TSH, HSTROPN, BNP #### [facility] [address] [place] [address] Dr. Grace Abdul Globulin (S) [Mass/Vol] 2.7 g/dL Normal [facility] Comment on above: Performed By: #### C MP, TSH, HSTROPN, BNP #### [facility] [address] [place] [address] Dr. Grace Abdul Glucose [Mass/Vol] 116 mg/dL Critically high 74-106 T [facility] Comment on above: Performed By: #### C MP, TSH, HSTROPN, BNP #### [facility] [address] [place] [address] Dr. Grace Abdul Potassium [Moles/Vol] 3.6 mmol/L Normal 3.5-5.1 [facility] Comment on above: Performed By: #### C MP, TSH, HSTROPN, BNP #### [facility] [address] [place] [address] Dr. Grace Abdul Protein [Mass/Vol] 6.0 g/dL Critically low 6.4-8.2 [facility] Comment on above: Performed By: #### C MP, TSH, HSTROPN, BNP #### [facility] [address] [place] [address] Dr. Grace Abdul Sodium [Moles/Vol] 135 mmol/L Critically low 136-145 [facility] Comment on above: Performed By: #### C MP, TSH, HSTROPN, BNP #### [facility] [address] [place] [address] Dr. Grace Abdul Urea nitrogen [Mass/Vol] 25.0 mg/dL Critically high 7.0-18.0 [facility] Comment on above: Performed By: #### C MP, TSH, HSTROPN, BNP #### [facility] [address] [place] [address] Dr. Grace Abdul Urea nitrogen/Creatinine [Mass ratio] 19.7 mg/mg Normal [facility] Comment on above: Performed By: #### C MP, TSH, HSTROPN, BNP #### [facility] [address] [place] [address] Dr. Grace Abdul PROTIMEon 11-11-2021 INR Coag (PPP) [Relative time] 0.95 {INR} Normal [facility] Comment on above: Performed By: #### B MP #### [facility] [address] [place], [place] [address] Dr. Grace Abdul INR GUIDELINES SEE BELOW Normal [facility] Comment on above: Result Comment: DURAN RED INR: 2.0 - 3.0 CONDITIONS NOT LISTED BELOW 2.5 - 3.5 FOR PROSTHETIC HEART VALVE REPLACEMENT 2.5 - 3.5 RECURRENT THROMBOSIS Performed By: #### B MP #### [facility] [id number] Grace Abdul PT Coag (PPP) [Time] 10.3 s Normal 9.0-11.6 [facility] Comment on above: Performed By: #### B MP #### [facility] [address] [address] [address] Grace Abdul PTTon 11-11-2021 aPTT Coag (Bld) [Time] 21.3 s Critically low 22.3-36.2 [facility] Comment on above: Performed By: #### B MP #### [facility] [id number] Grace Abdul TROPONIN, HIGH SENSITIVITYon 11-11-2021 HSTROP 6.5 pg/mL Normal 4.0-51.3 [facility] Comment on above: Result Comment: CUT- OFF POINTS HAVE BEEN ESTABLISHED BASED ON THE FOURTH UNIVERSAL DEFINITIONS OF MYOCARDIAL INFARCTION. THE UPPER REFERENCE LIMIT (URL) OF TROPONIN, DEFINED THE 99TH PERCENTILE OF cTnI DISTRIBUTION IN A REFERENCE POPULATION, HAS BEEN CONFIRMED THE DECISION THRESHOLD FOR DC DIAGNOSIS. Performed By: #### C MP, TSH, HSTROPN, BNP #### [facility] [address] [place], [place] [address] Dr. Grace Abdul TSHon 11-11-2021 TSH 2.140 uIU/mL Normal 0.358-3.740 [facility] Comment on above: Performed By: #### C MP, TSH, HSTROPN, BNP ####[facility] [address] [place], [place] [address]VdDr. Grace Abdul XR CHEST 1 Von 11-11-2021 [...] KRANTHI CONNORS Date: 2021-11-11 13:34 Normal [facility] CARDIAC JOVITA ADMITon 022 CK [Catalytic activity/Vol] 89 U/L Normal 26-192 [facility] Comment on above: Performed By: #### C VDTBH #### [facility] [address] [address] [address] Grace Abdul CK.MB [Mass/Vol] 1.92 ng/mL Normal <=3.60 [facility] Comment on above: Performed By: #### C VDTBH #### [facility] [address] [address] [address] Grace Abdul HSTROP 5.7 pg/mL Normal 4.0-51.3 [facility] Comment on above: Result Comment: CUT- OFF POINTS HAVE BEEN ESTABLISHED BASED ON THE FOURTH UNIVERSAL DEFINITIONS OF MYOCARDIAL INFARCTION. THE UPPER REFERENCE LIMIT (URL) OF TROPONIN, DEFINED THE 99TH PERCENTILE OF cTnI DISTRIBUTION IN A REFERENCE POPULATION, HAS BEEN CONFIRMED THE DECISION THRESHOLD FOR DC DIAGNOSIS. Performed By: #### C VDTBH #### [facility] [address] [address] [address] Grace Abdul JOHNNA 86 ng/mL Critically high 9-82 [facility] Comment on above: Performed By: #### C VDTBH #### [facility] [address] [address] [address] Grace Abdul CBC AUTO DIFFon 09-13-2021 BASO # 0.0 103/ul Normal 0.0-0.1 [facility] Comment on above: Performed By: #### C VDTBH #### [facility] [address] [place] [address] Dr. Grace Abdul Basophils/100 WBC (Bld) 0.5 % Normal 0.2-2.0 [facility] Comment on above: Performed By: #### C VDTBH #### [facility] [address] [place] [address] Dr. Grace Abdul EO # 0.0 103/ul Normal 0.0-0.7 [facility] Comment on above: Performed By: #### C VDTBH #### [facility] [address] [place] [address] Dr. Grace Abdul Eosinophils/100 WBC (Bld) 0.7 % Critically low 0.9-7.0 [facility] Comment on above: Performed By: #### C VDTBH #### [facility] [address] [place] [address] Dr. Grace Abdul Erythrocyte distribution width (RBC) [Ratio] 13.2 % Normal 11.0-15.0 [facility] Comment on above: Performed By: #### C VDTBH #### [facility] [address] [place] [address] Dr. Grace Abdul Hematocrit (Bld) [Volume fraction] 34.8 % Critically low 36.0-48.0 [facility] Comment on above: Performed By: #### C VDTBH #### [facility] [address] [place] [address] Dr. Grace Abdul Hemoglobin (Bld) [Mass/Vol] 11.9 g/dL Critically low 12.0-16.0 [facility] Comment on above: Performed By: #### C VDTBH #### [facility] [address] [place] [address] Dr. Grace Abdul IG # 0.01 10e3/ul Normal 0.00-0.03 [facility] Comment on above: Performed By: #### C VDTBH #### [facility] [address] [place] [address] Dr. Grace Abdul IG % 0.2 % Normal 0.0-0.5 [facility] Comment on above: Performed By: #### C VDTBH #### [facility] [address] [address] [address] Grace Abdul LYMPH # 0.6 103/ul Critically low 1.2-3.8 [facility] Comment on above: Performed By: #### C VDTBH #### [facility] [address] [place] [address] Dr. Grace Abdul Lymphocytes/100 WBC (Bld) 14.2 % Critically low 20.5-60.0 [facility] Comment on above: Performed By: #### C VDTBH #### [facility] [address] [place] [address] Dr. Grace Abdlu MANUAL DIFF REQ NO Normal [facility] Comment on above: Performed By: #### C VDTBH #### [facility] [address] [place] [address] Dr. Grace Abdul MCH (RBC) [Entitic mass] 31.5 pg Normal 26.7-34.0 [facility] Comment on above: Performed By: #### C VDTBH #### [facility] [address] [place] [address] Dr. Grace Abdul MCHC (RBC) [Mass/Vol] 34.2 g/dL Normal 29.9-35.2 [facility] Comment on above: Performed By: #### C VDTBH #### [facility] [address] [place] [address] Dr. Grace Abdul MCV (RBC) [Entitic vol] 92.1 fL Normal 81.0-99.0 [facility] Comment on above: Performed By: #### C VDTBH #### [facility] [address] [place] [address] Dr. Grace Abdul MONO # 0.7 103/ul Normal 0.3-0.8 [facility] Comment on above: Performed By: #### C VDTBH #### [facility] [address] [place] [address] Dr. Grace Abdul Monocytes/100 WBC (Bld) 15.6 % Critically high 1.7-12.0 [facility] Comment on above: Performed By: #### C VDTBH #### [facility] [address] [address] [address] Grace Abdul NEUT # 3.0 103/ul Normal 1.4-6.5 [facility] Comment on above: Performed By: #### C VDTBH #### [facility] [address] [address] [address] Grace Abdul Neutrophils/100 WBC (Bld) 68.8 % Normal 43.0-75.0 [facility] Comment on above: Performed By: #### C VDTBH #### [facility] [address] [address] [address] Grace Abdul Platelet mean volume (Bld) [Entitic vol] 9.5 fL Normal 9.5-13.5 [facility] Comment on above: Performed By: #### C VDTBH #### [facility] [address] [place] [address] Dr. Grace Abdul PLT 303 103/ul Normal 150-450 [facility] Comment on above: Performed By: #### C VDTBH #### [facility] [address] [place] [address] Dr. Grace Abdul RBC 3.78 106/ul Critically low 4.20-5.40 [facility] Comment on above: Performed By: #### C VDTBH #### [facility] [address] [place] [address] Dr. Grace Abdul WBC 4.4 103/ul Normal 4.0-11.0 [facility] Comment on above: Performed By: #### C VDTBH #### [facility] [address] [place] [address] HEAD WO CONon [...] KRANTHI CONNORS Date: 2021-09-13 13:24 Normal [facility] Covid-19 PCR (CVDTBH)on 08-22 SARS-CoV-2 (COVID-19) RNA LUISITO+probe Ql (Unsp spec) Not detected Normal NOT DETECTED [facility] Comment on above: Result Comment: When [...] for this test is supported by the [place] of Health and Human Service's declaration that [...] used). Performed By: #### C VDTBH #### [facility] [address] [place] [address] Dr. Grace Abdul ER URINE PROFILEon 2 Bilirubin Ql (U) Negative Normal NEGATIVE [facility] Comment on above: Performed By: #### B MP #### [facility] [address] [place] [address] Dr. Grace Abdul Clarity (U) CLEAR Normal CLEAR [facility] Comment on above: Performed By: #### B MP #### [facility] [address] [place] [address] Dr. Grace Abdul Color (U) LT. YELLOW Normal YELLOW [facility] Comment on above: Performed By: #### B MP #### [facility] [address] [place] [address] Dr. Grace HIGGINS A micrscopic examination will be performed if indicated. Normal [facility] Comment on above: Performed By: #### B MP #### [facility] [address] [place] [address] Dr. Grace Abdul Glucose Ql (U) Negative Normal NEGATIVE [facility] Comment on above: Performed By: #### B MP #### [facility] [address] [place] [address] Dr. Grace Abdul Hemoglobin Ql (U) Negative Normal NEGATIVE [facility] Comment on above: Performed By: #### B MP #### [facility] [address] [place] [address] Dr. Grace Abdul Ketones Ql (U) TRACE Abnormal NEGATIVE [facility] Comment on above: Performed By: #### B MP #### [facility] [address] [place] [address] Dr. Grace Abdul LEUKOCYTES TRACE Abnormal NEGATIVE [facility] Comment on above: Performed By: #### B MP #### [facility] [address] [place] [address] Dr. Grace Abdul Nitrite Ql (U) Negative Normal NEGATIVE [facility] Comment on above: Performed By: #### B MP #### [facility] [address] [place] [address] Dr. Grace Abdul pH (U) 8.0 [pH] Normal 5-9 [facility] Comment on above: Performed By: #### B MP #### [facility] [address] [place] [address] Dr. Grace Abdul SPEC GRAVITY 1.015 Normal 1.005-<=1.025 [facility] Comment on above: Performed By: #### B MP #### [facility] [address] [place] [address] Dr. Grace Abdul UA PROTEIN Negative Normal NEGATIVE/ TRACE [facility] Comment on above: Performed By: #### B MP #### [facility] [address] [place] [address] Dr. Grace Abdul UR MICRO IND INDICATED Normal [facility] Comment on above: Performed By: #### B MP #### [facility] [address] [place] [address] Dr. Grace Abdul Urobilinogen Qn (U) 0.2 {Ashley'U}/dL Normal 0.2 - 1. 0 [facility] Comment on above: Performed By: #### B MP #### [facility] [address] [place] [address] Dr. Grace Abdul PROF 14(COMP METB)on 022 Albumin [Mass/Vol] 3.8 g/dL Normal 3.4-5.0 [facility] Comment on above: Performed By: #### C VDTBH #### [facility] [address] [place] [address] Dr. Grace Abdul Albumin/Globulin [Mass ratio] 1.4 {ratio} Normal [facility] Comment on above: Performed By: #### C VDTBH #### [facility] [address] [place] [address] Dr. Grace Abdul ALP [Catalytic activity/Vol] 53 U/L Normal 46-116 [facility] Comment on above: Performed By: #### C VDTBH #### [facility] [address] [place] [address] Dr. Grace Abdul ALT [Catalytic activity/Vol] 20 U/L Normal 14-59 [facility] Comment on above: Performed By: #### C VDTBH #### [facility] [address] [place] [address] Dr. Grace Abdul Anion gap [Moles/Vol] 12.0 mmol/L Normal [facility] Comment on above: Performed By: #### C VDTBH #### [facility] [address] [place] [address] Dr. Grace Abdul AST [Catalytic activity/Vol] 18 U/L Normal 15-37 [facility] Comment on above: Performed By: #### C VDTBH #### [facility] [address] [address] [address] Grace Abdul Bilirubin [Mass/Vol] 0.4 mg/dL Normal 0.2-1.0 [facility] Comment on above: Performed By: #### C VDTBH #### [facility] [address] [address] [address] Grace Abdul Calcium [Mass/Vol] 9.5 mg/dL Normal 8.5-10.1 [facility] Comment on above: Performed By: #### C VDTBH #### [facility] [address] [address] [address] Grace Abdul Chloride [Moles/Vol] 99 mmol/L Normal 98-107 [facility] Comment on above: Performed By: #### C VDTBH #### [facility] [address] [address] [address] Grace Abdul CO2 [Moles/Vol] 28.1 mmol/L Normal 21.0-32.0 [facility] Comment on above: Performed By: #### C VDTBH #### [facility] [address] [address] [address] Grace Abdul Creatinine [Mass/Vol] 1.25 mg/dL Critically high 0.55-1.02 [facility] Comment on above: Performed By: #### C VDTBH #### [facility] [address] [address] [address] Grace Abdul EGFR-AF MAURITANIAN 50 mL/min/1.73m2 Critically low >=60 [facility] Comment on above: Performed By: #### C VDTBH #### [facility] [address] [address] [address] Grace Abdul EGFR-NON AF MAURITANIAN 41 mL/min/1.73m2 Critically low >=60 [facility] Comment on above: Performed By: #### C VDTBH #### [facility] [address] [address] [address] Grace Abdul Globulin (S) [Mass/Vol] 2.7 g/dL Normal [facility] Comment on above: Performed By: #### C VDTBH #### [facility] [address] [place] [address] Dr. Grace Abdul Glucose [Mass/Vol] 131 mg/dL Critically high 74-106 T [facility] Comment on above: Performed By: #### C VDTBH #### [facility] [address] [place] [address] Dr. Grace Abdul Potassium [Moles/Vol] 4.1 mmol/L Normal 3.5-5.1 [facility] Comment on above: Performed By: #### C VDTBH #### [facility] [address] [place] [address] Dr. Grace Abdul Protein [Mass/Vol] 6.5 g/dL Normal 6.4-8.2 [facility] Comment on above: Performed By: #### C VDTBH #### [facility] [address] [place] [address] Dr. Grace Abdul Sodium [Moles/Vol] 135 mmol/L Critically low 136-145 [facility] [facility] Comment on above: Performed By: #### C VDTBH #### [facility] [address] [place] [address] Dr. Grace Abdul Urea nitrogen [Mass/Vol] 33.0 mg/dL Critically high 7.0-18.0 [facility] Comment on above: Performed By: #### C VDTBH #### [facility] [address] [place] [address] Dr. Grace Abdul Urea nitrogen/Creatinine [Mass ratio] 26.4 mg/mg Normal [facility] Comment on above: Performed By: #### C VDTBH #### [facility] [address] [place] [address] Dr. Grace Abdul URINE MICROSCOPIC ONLYon BACTERIA NONE SEEN Normal NONE SEEN [facility] Comment on above: Performed By: #### C BC #### [facility] [address] [place] [address] Dr. Grace Abdul Bacteria identified Cx Nom (U) NOT INDICATED Normal [facility] Comment on above: Performed By: #### C BC #### [facility] [address] [place] [address] Dr. Grace Abdul CAST NONE SEEN Normal NONE SEEN [facility] Comment on above: Performed By: #### C BC #### [facility] [address] [place] [address] Dr. Grace Abdul Crystals LM Nom (Urine sed) NONE SEEN Normal NONE SEEN [facility] Comment on above: Performed By: #### C BC #### [facility] [address] [place] [address] Dr. Grace Abdul Epithelial cells LM Ql (Urine sed) FEW Abnormal NONE SEEN /RARE [facility] Comment on above: Performed By: #### C BC #### [facility] [address] [place] [address] Dr. rGace Abdul MUCOUS NONE SEEN Normal NONE SEEN [facility] Comment on above: Performed By: #### C BC #### [facility] [address] [place] [address] Dr. Grace Abdul RBC 0-2 Normal 0-2 [facility] Comment on above: Performed By: #### C BC #### [facility] [address] [place] [address] Dr. Grace Abdul WBC 0-2 Abnormal NONE SEEN [facility] Comment on above: Performed By: #### C BC #### [facility] [address] [place] [address] Dr. Grace Abdul XR CHEST 1 Von [...] KRANTHI CONNORS Date: 2021-09-13 13:19 Normal [facility] CERV SP W/OBLS/FLEX/EXT 6 OR >on 12-12-2020 CERV SP W/OBLS/FLEX/EXT 6 OR > STUDY: CERV SP W/OBLS/FLEX/EXT 6 OR >; 12/12/2020 9:40 am INDICATION: NECK PAIN. COMPARISON: None. ACCESSION NUMBER(S): [id number] ORDERING CLINICIAN: Aiden Younger TECHNIQUE: AP, lateral, [...] findings. Dense left carotid artery calcifications. Normal [facility] Vital Signs Date Time Vital Sign Value Performing Clinician Aimee pollock 09-21-2022 12:51-0400 Diastolic blood pressure 60 mm[Hg] Carolyn Vanegas MD Work Phone: [facility] 09-21-2022 12:51-0400 Heart rate 67 /min Carolyn Vanegas MD Work Phone: [facility] 09-21-2022 12:51-0400 Systolic blood pressure 153 mm[Hg] Carolyn Vanegas MD Work Phone: [facility] 05-14-2022 14:24-0400 Diastolic blood pressure 87 mm[Hg] Marty Dozier DO Work Phone: [facility] 05-14-2022 14:24-0400 Heart rate 72 /min Marty Dozier DO Work Phone: [facility] 05-14-2022 14:24-0400 Systolic blood pressure 158 mm[Hg] Marty Dozier DO Work Phone: [facility] 05-14-2022 14:220400 Body height 152.4 cm Marty Dozier DO Work Phone: [facility] 05-14-2022 14:220400 Body weight 76.39 kg Marty Dozier DO Work Phone: [facility] 05-14-2022 14:220400 SaO2% (BldA) [Mass fraction] 99 % Marty Dozier DO Work Phone: [facility] Encounters Encounter Date Encounter Type Care Provider Facility Start: 08-08-2023 End: 08-08-2023 ambulatory COLETTE BRIGHT Not Available Start: 06-06-2023 End: 06-07-2023 ambulatory Lyn Quiñones MD [facility]: [facility] Start: 05-23-2023 End: 05-24-2023 ambulatory Lyn Quiñones MD Facility: [facility] Start: 01-17-2023 End: 01-18-2023 ambulatory Lyn Quiñones MD Facility: [facility] Start: 12-27-2022 End: 12-28-2022 ambulatory Lyn Quiñones MD Facility: [facility] Start: 12-20-2022 End: 12-21-2022 ambulatory Lyn Quiñones MD Facility: [facility] Start: 11-15-2022 End: 11-16-2022 ambulatory Lyn Quiñones MD Facility: [facility] Start: 09-21-2022 End: 09-21-2022 ambulatory GALINA ROGERS Facility:[facility] Start: 09-21-2022 End: 09-21-2022 Patient encounter procedure [...] Facility:[facility] Start: 05-14-2022 End: 05-14-2022 ambulatory MARTY De La Rosa GUILLAUMEBUD Facility:[facility] Start: 05-14-2022 End: 05-14-2022 Patient encounter procedure Marty De La Rosa Guillaumebud DO Work Phone: [facility] Comment on above: 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 Facility:[facility] Start: 04-13-2022 End: 04-13-2022 ambulatory [...] Evaluation and management of inpatient SHAIKH Zaria CHANEY Facility:[facility] Start: 11-11-2021 End: 11-11-2021 ambulatory ROGE ALEJO . Facility:[facility] Start: 09-30-2021 End: 10-01-[address] NIKO BECKWITH . Facility:[facility] Start: 09-13-2021 End: 09-13-2021 ambulatory ROGE ALEJO . Facility:[facility] Start: 09-12-2017 End: 09-13-2017 Patient encounter DEFAULT PHYSICIAN Facility:[facility] Plan of Treatment Date Care Activity Detail Author Start: 10-22-2022 Influenza vaccination INFLUENZA (#1) [facility] Start: 04-11-2022 COVID-19 VACCINE (6 - Moderna series) COVID-19 VACCINE (6 - Moderna series) [facility] Start: 02-21-2022 ADVANCE DIRECTIVE DISCUSSION ADVANCE DIRECTIVE DISCUSSION [facility] Start: 02-21-2022 DEPRESSION ASSESSMENT DEPRESSION ASS ESSMENT [facility] Start: 11-12-2017 PNEUMOCOCCAL: 65+ (2 - PPSV23 if available, else PCV20) PNEUMOCOCCAL: 65+ (2 - PPSV23 if available, else PCV20) [facility] Start: 11-12-2017 PNEUMOCOCCAL: 65+ (2 - PPSV23 or PCV20) PNEUMOCOCCAL: 65+ (2 - PPSV23 or PCV20) [facility] Start: 07-22-2017 SHINGRIX VACCINE (2 of 3) MANLEY GRIX VACCINE (2 of 3) [facility] Start: 04-30-2004 BONE DENSITY BONE DENSITY [facility] Start: 04-30-1984 DIABETES SCREEN DIABETES SCREEN [facility] Start: 04-30-1958 Urine microalbumin profile DTAP,TDAP ,TD (1 - Tdap) [facility] Immunizations Immunization Date Immunization Notes Care Provider Armando schwartz 12-02-2021 Influenza, injectabl e, Madin Festus Canine Kidney, preservative free, quadrivalent Marty Mendis DO Work Phone: [facility] 11-28-2020 influenza virus vacc ine, unspecified formulation Marty Mendis DO Work Phone: [facility] 11-29-2019 Seasonal trivalent influenza vaccine, adjuvanted, preservative free Marty Mendis DO Work Phone: [facility] 05-27-2017 zoster vaccine, live Marty Mendis DO Work Phone: [facility] 11-12-2016 pneumococcal conjuga te vaccine, 13 valent Marty Mendis DO Work Phone: [facility] Payers Date Payer Category Payer Private Health Insurance [facility] AARP SUPPLEMENT [id number] 2022-Present [phone] [address] [place] [address] Indemnity [id number] 2004 Medicare [id number] 2004 Unknown 1959 Medicare [id number] 1959 Self-pay 1959 Unknown [id number] 1939 Unknown [id number] 2.16.840.1.489536.3.579.2 .593 1939 Unknown [id number] 2.16.840.1.546466.3.579.2 .593 1939 Unknown [id number] 2.16.840.1.112813.3.579.2 .593 1939 Unknown [id number] 2.16.840.1.321350.3.579.2 .593 1939 Unknown [id number] 2.16.840.1.511564.3.579.2 .593 1939 Unknown [id number] 2.16.840.1.040370.3.579.2 .593 1939 Unknown [id number] 2.16.840.1.993800.3.579.2 .593 1939 Unknown [id number] 2.16.840.1.532696.3.579.2 .593 1939 Unknown [id number] 2.16.840.1.249968.3.579.2 .593 1939 Unknown [id number] 2.16.840.1.960051.3.579.2 .593 1939 Unknown [id number] 2.16.840.1.770271.3.579.2 .593 1939 Unknown [id number] 2.16.840.1.350148.3.579.2 .593 1939 Unknown [id number] 2.16.840.1.309119.3.579.2 .593 1939 Unknown [id number] 2.16.840.1.181968.3.579.2 .593 1939 Unknown [id number] 2.16.840.1.306257.3.579.2 .593 1939 Unknown [id number] 2.16.840.1.164047.3.579.2 .593 1939 Unknown [id number] 2.16.840.1.293331.3.579.2 .593 1939 Unknown [id number] 2.16.840.1.644617.3.579.2 .593 1939 Unknown [id number] 2.16.840.1.465723.3.579.2 .593 1939 Unknown [id number] 2.16.840.1.076849.3.579.2 .593 1939 Unknown [id number] 2.16.840.1.493719.3.579.2 .593 1939 Unknown [id number] 2.16.840.1.153046.3.579.2 .593 1939 Unknown [id number] 2.16.840.1.205380.3.579.2 .593 1939 Unknown [id number] 2.16.840.1.365475.3.579.2 .593 1939 Unknown [id number] 2.16.840.1.752403.3.579.2 .593 1939 Unknown [id number] 2.16.840.1.746136.3.579.2 .196 1939 Unknown [id number] 2.16.840.1.953379.3.579.2 .196 1939 Unknown [id number] 2.16.840.1.840674.3.579.2 .196 1939 Unknown [id number] 2.16.840.1.834245.3.579.2 .196 1939 Unknown [id number] 2.16840.1.629776.3.579.2 .196 1939 Unknown [id number] 2.16.840.1.463627.3.579.2 .196 1939 Unknown [id number] 2.16840.1.750249.3.579.2 .1259 1939 Unknown [id number] 2.16840.1.935068.3.579.2 .1259 Social History Date Type Detail Facility Start: 05-14-2022 Tobacco smoking stat us NHIS Never smoked tobacco [facility] Start: 05-14-2022 Tobacco use and exposure Smoke less tobacco non-user [facility] Start: 05-14-2022 End: 09-21-2022 Alcohol intake Lifetime non-drinker (finding) [facility] Start: 1940 Sex Assigned At Not on file C [facility] Start: 05-09-2022 End: 09-21-2022 History of Social function [facility] Start: 05-09-2022 End: 09-21-2022 Tobacco use panel [facility] Adult Depression Scr eening Assessment 2 [facility] Clinical Notes 09-30-2021 to 09-21-2022 Patient InstructionsCarolyn Vanegas MD - 09/21/2022 12:43 PM EDCaroline Alves PA-C - 08/26/2022 11:45 AM EDTTerrance Troy Bowman - 08/19/2022 4:06 PM EDT Note Date & Type Note Facility 09-21-2022 Note HNO ID: [id number] Author: Carolyn Vanegas MD Service: ? Author [...] loss: No Osteoporosis: No Neck Questionnaires 05/09/2022 Zach Modified ELOISA Score 10 (A lower score indicates increased pain and issues.) PROMIS Score Percentiles Physical Health 05/09/2022 Physical Function Percentile 2 Sleep Percentile 8 Fatigue Percentile 1 Pain Interference Percentile 1 PROMIS SOCIAL ROLE SCORE 05/09/2022 Social Role Satisfaction Percentile 1 PROMIS Global Health Scale 05/09/2022 Physical Health Percentile 1 (more content not included)... [facility] 09-21-2022 Instructions Carolyn Vanegas MD - 09/21/2022 [...] at this time. documented in this encounter [facility] 09-21-2022 History of Present illness [...] 4 - Moderate documented in this encounter [facility] 08-26-2022 Note HNO ID: [id number] Author: Kassandra Alves PA-C Service: ? Author Type: Physician Bell Person Type: Progress Notes Filed: 08/26/2022 11:52 AM Note Text: Per Triage: Alexa Delgado is a 82 year old female that requests evaluation of spine. Per review, they have symptoms of lower back pain. Numbness/tingling right leg. Difficulty walking. Weakness Request: 1st available Referring provider: Galina Rogers MD Patient out of state: no 2nd opinion: no Prior spine surgery: yes 2006 [facility] Address: [address] [place] [address] CMT: PT Injections Tylenol Hydrocodone Studies (Reports [...] reviewed during the appt Kassandra Alves PA-C [facility] 08-26-2022 History of Present illness Narrative Per Triage: Alexa Delgado is a 82 year old female that requests evaluation of spine. Per review, they have symptoms of lower back pain. Numbness/tingling right leg. Difficulty walking. Weakness Request: 1st available Referring provider: Galina Rogers MD Patient out of state: no 2nd opinion: no Prior spine surgery: yes 2006 [facility] Address: [address] [place] [address] CMT: PT Injections Tylenol Hydrocodone Studies (Reports [...] Delgado Are you being referred by a Center for Spine Health Provider or Pain Management Provider at [facility]? No If answer is YES please [...] facility where the MRI/CT/myelogram was completed: [facility] Address: [address] [place] [address] MRI/CT/myelogram viewable in Epic: No If not, please provide [phone] to fax in imaging reports for review. [...] physical therapy was completed PT Injection [facility] Address: [address] [place] [address] Have you tried any other kinds of [...] where the surgery was completed: 2006 [facility] Address: [address] [place] [address] Additional Comments documented in this encounter [facility] 08-19-2022 Note HNO ID: [id number] Author: Micheal Bowman Service: ? Author Type: ? Type: Progress Notes Filed: 08/26/2022 11:52 AM Note Text: Patient name: Alexa Delgado Are you being referred by a Center for Spine Health Provider or Pain Management Provider at [facility]? No If answer is YES please [...] facility where the MRI/CT/myelogram was completed: [facility] Address: [address] [place] [address] MRI/CT/myelogram viewable in Epic: No If not, please provide [phone] to fax in imaging reports for review. [...] physical therapy was completed PT Injection [facility] Address: [address] [place] [address] Have you tried any other kinds of [...] of where the surgery was completed: 2006 [facility] Address: [address] [place] [id number] Additional Comments [facility] 07-16-2022 Note PROCEDURE: XR HIP RT 2 [...] authenticated by: HERMES MENDOZA Date: 2022-07-16 11:28 [facility] 05-14-2022 Note HNO ID: [id number] Author: Marty Dozier, DO Service: ? Author Type: Physician Type: Progress Notes Filed: 05/15/2022 10:02 PM Note Text: [facility] - [facility] - Medical Spine Initial Exam [...] Ratio: R>L low back Current Treatment: Medications Macomb 5-325 mg BID - helps Diclofenac 75 [...] but still has pain -01/28/22 Noemi Sequeira PERSONNEL ASSISTANT: BL Lumbar erector spinae TPI (0.125% Marcaine, [...] ongoing as of 04/17/21 -03/08/21 Noemi Sequeira PERSONNEL ASSISTANT: Left rhomboid TPI (0.125% Marcaine, 40 mg Kenalog) -02/03/21 LESI - moderate relief for 4 days Prior spine surgery: -2006 L4-5 Discectomy Previously treated by: -[facility], previously Dr. Niko [...] today. She has an evaluation at the [facility] tomorrow at the Spine Center. RECOMMENDATIONS: We will see the patient back in the office after she undergoes evaluation there to discuss her treatment plan thereafter. We will see the patient back in the office in approximately four weeks' time or sooner if needed. PMH: Lumbar scoliosis Depression on Negrita (more content not included)... [facility] 05-14-2022 History of Present illness Narrative Images from the original note were not included. [facility] for [facility] - Medical Spine [...] Ratio: R>L low back Current Treatment: Medications Macomb 5-325 mg BID - helps Diclofenac 75 [...] but still has pain -01/28/22 Noemi Sequeira PERSONNEL ASSISTANT: BL Lumbar erector spinae TPI (0.125% Marcaine, [...] ongoing as of 04/17/21 -03/08/21 Noemi Sequeira PERSONNEL ASSISTANT: Left rhomboid TPI (0.125% Marcaine, 40 mg Kenalog) -02/03/21 LESI - moderate relief for 4 days Prior spine surgery: -2006 L4-5 Discectomy Previously treated by: -[facility], previously Dr. Niko [...] today. She has an evaluation at the [facility] tomorrow at the Spine Center. [...] reviewed 04/04/22 CT abd/pelvis with IV contrast, [facility], report: Abdominal wall: Old healed left pelvis fractures. Degenerative changes and scoliosis of the lumbar spine. IMPRESSION: No acute abdominal pathology. No acute inflammatory process. No obstructing urinary tract stone. No evidence for bowel obstruction. 11/15/21 XR abd, [facility], report: No acute osseous abnormality. There is moderate dextrocurvature of the lumbar spine. 05/08/2021 XR right hip/pelvis, [facility], report: Rotatory dextro scoliosis of the [...] TIME: 3:15 PM documented in this encounter [facility] 05-13-2022 Note CONSULTATION CONSULTATION DATE: [...] mg at h.s., diclofenac 75 mg b.i.d., Macomb 5 mg b.i.d. EXAM: Notable for the [...] today. She has an evaluation at the [facility] tomorrow at the Spine Center. RECOMMENDATIONS: We will see the patient back in the office after she undergoes evaluation there to discuss her treatment plan thereafter. We will see the patient back in the office in approximately four weeks' time or sooner if needed. [facility] 04-06-2022 Note CONSULTATION CONSULTATION DATE: 04/06/2022 [...] to kidney dysfunction also. The patient takes Macomb, however, is very controlled and limits it to the point of detriment. Education was done. The patient was instructed to take the Macomb to a b.i.d. to t.i.d. basis. The [...] b.i.d. basis. The patient may increase the Macomb to 5/325 t.i.d. We will schedule the [...] the procedure. CC: Galina Rogers M.D. [facility] 03-11-2022 Note CONSULTATION CONSULTATION DATE: 03/11/2022 [...] gave improvement for 24 hours. Medications include Macomb 5/325 b.i.d., diclofenac 75 mg b.i.d., citalopram [...] rotation and flexion/extension. Paravertebral muscles are non-spasmodic. Urbin's point is non-tender. No spinal axial pain reproduced upon lumbar facet compression. MUSCULOSKELETAL: Muscle atrophy noted bilateral lower extremities. Patient walks steadily with a wheeled walker. Right leg anterior tibialis weakness, right greater than left. NEUROLOGICAL: Radicular sensory is intact. Negative polyneuropathy. DIAGNOSIS: Right knee pain, chronic lower back pain. PLAN: We will refill her Macomb 5/325 b.i.d. We will prescribe her Buderer cream with gabapentin, ketorolac and prilocaine/lidocaine to be placed over her right knee. We will trial Requip 0.25 mg q.h.s. We will see the patient in the clinic in three months' time unless otherwise indicated. Patient agrees with the plan. [facility] 01-28-2022 Note CONSULTATION CONSULTATION DATE: 01/28/2022 [...] daily which decreases her pain. Medications include Macomb 5/325 b.i.d., Flexeril 5 mg b.i.d., diclofenac [...] does consent to. We will refill the Macomb 5/325 b.i.d. We will pre-authorize for a right genicular nerve block under fluoroscopy. Patient will follow up in the clinic thereafter. [facility] 01-28-2022 Note CONSULTATION PROCEDURE DATE: 01/28/2022 [...] be followed up in the office. [facility] 12-31-2021 Note CONSULTATION CONSULTATION DATE: 12/31/2021 [...] Current medications include diclofenac 75 mg b.i.d., Macomb 5/325 b.i.d., citalopram, Flexeril and multivitamin regimen. The patient does state that she breaks her Macomb in half and the most she takes [...] and would like to move forward. [facility] 09-30-2021 Note CONSULTATION CONSULTATION DATE: 09/30/2021 This is a very [id number] female accompanied by her returning to the [...] Current medications include diclofenac 50 mg b.i.d., Macomb 5/325 b. i.d. and Tylenol. She does [...] at 25 mg q.h.s. Refill for her Macomb 5/325 b.i.d. will be sent as well. The patient is to continue with her vitamin regimen which she is currently compliant with, as well as heat application and pool exercises. The patient will be followed up in the office in three months' time unless otherwise indicated. The patient agrees with the plan of care. [facility] Evaluation note Diagnosis Chronic bilateral low back pain with right-sided sciatica- Primary Back pain, lumbosacral Lumbago Chronic sacroiliac joint pain Disorders of sacrum Lumbar spondylosis Lumbosacral spondylosis without myelopathy Scoliosis of lumbar spine, unspecified scoliosis type [facility] Spinal stenosis, lumbar region with neurogenic claudication- Primary Spondylolisthesis, lumbar region Other idiopathic scoliosis, lumbar region [facility] Obesity, Class I, BMI 30-34.9- Primary Obesity, unspecified Spinal stenosis, lumbar region with neurogenic claudication documented in this encounter [facility] Summary Purpose Family History No [...] By Contac t Referred To Contact [facility] Diagnoses Spinal stenosis, lumbar region with neurogenic claudication Procedures CONSULT TO [facility]) OFFICE/OUTPATIENT [facility] 60-74 MINUTES Carolyn Vanegas MD [address] [place] [address] Referral ID Status Reason Start Date Expiration Date Visits Requested Visits Authorized [id number] Pending Review PCP Requested Referral 09/21/2022 09/21/2023 1 1 Additional Source Comments INFORMATION SOURCE (unrecogn ized section and content) DATE CREATED AUTHOR 09/13/2017 [facility] DATE CREATED AUTHOR AUTHOR'S ORGANIZ ATION 12/13/2020 [facility] DATE CREATED AUTHOR AUTHOR'S ORGANIZ ATION 07/30/2022 [facility] DATE CREATED AUTHOR AUTHOR'S ORGANIZ ATION 09/22/2022 [facility] DATE CREATED AUTHOR AUTHOR'S ORGANIZ ATION 06/15/2023 [facility] DATE CREATED AUTHOR AUTHOR'S ORGANIZ ATION 08/13/2023 [facility] EPIC Source Comments (unrecognize d section and content) In the event this informatio n is protected by the Federal Confidentiality of Alcohol and Drug Abuse Patient Records regulations: The Federal rules restrict any use of the information to criminally investigate or prosecute any alcohol or drug abuse patient.[facility] the event this information is protected by the Federal Confidentiality of Alcohol and Drug Abuse Patient Records regulations: The Federal rules restrict any use of the information to criminally investigate or prosecute any alcohol or drug abuse patient.[facility] the event this information is protected by the Federal Confidentiality of Alcohol and Drug Abuse Patient Records regulations: The Federal rules restrict any use of the information to criminally investigate or prosecute any alcohol or drug abuse patient.[facility] Reason for Visit (unrecogniz ed section and content) Reason Comments New Patient Evaluation Low Back Pain Reason Comments New Patient Care Teams (unrecognized sec tion and content) Dental Patient Coordinator Relationship Specialty Start Date End Date Galina Rogers MD [address] [place] [address] PCP - General Family Medicine 05/14/22 Colette De Leon Jr., DO [address] [facility] [[email or web address] [address] [place] [address] Referring Orthopedics 05/03/22 Lakshmipathy, Narendranath [address] [id number] Pain Management 05/14/22 Colette De Leon Jr., DO [address] [place] [place] [address] Orthopedics 05/14/22 Dental Patient Coordinator Relationship Specialty Start Date End Date Galina Rogers MD [address] [place] [address] PCP - General Family Medicine 05/14/22 Colette De Leon Jr., DO [address] [place] [address] Referring Orthopedics 05/03/22 Lakshmipathy, Narendranath [address] [address] Pain Management 05/14/22 Colette De Leon Jr., DO [address] [facility] [address] [place] [address] Orthopedics 05/14/22 Galina Rogers MD [address] [place] [address] Referring Family Medicine 08/11/22 Dental Patient Coordinator Relationship Specialty Start Date End Date Galina Rogers MD [address] [place] [address] PCP - General Family Medicine 05/14/22 Colette De Leon Jr., DO [address] [place] [id number] Referring Orthopedics 05/03/22 Porsha Garcia [address] [address] Pain Management 05/14/22 Colette De Leon Jr., DO [address] [facility] [address] [place] [address] Orthopedics 05/14/22 Galina Rogers MD [address] [place] [address] Referring Family Medicine 08/11/22 FOR RECORDS PERTAINING [...] BE BASED ON THE PRIMARY CLINICAL RECORDS. [facility] [employer] [facility]. provides no warranty or guarantee of the accuracy or completeness of information in this document.
[2023-08-18 13:01] LABS: Hematocrit 34.3 % (36.0-48.0); Hemoglobin 11.1 g/dL (12.0-16.0); Mean Corpuscular HGB Conc 32.4 g/dL (29.9-35.2); Mean Corpuscular Hemoglobin 31.3 pg (26.7-34.0); Mean Corpuscular Volume 96.6 fL (81.0-99.0); Mean Platelet Volume 9.1 fL (9.5-13.5); Platelet Count 287 10^3/uL (150-450); Red Blood Count 3.55 10^6/uL (4.20-5.40); Red Cell Distribution Width 13.7 % (11.0-15.0); White Blood Count 4.2 10^3/uL (4.0-11.0)
[2023-08-18 14:27] LABS: Internal Control Within Normal Limits; Mono Screen NEGATIVE (NEGATIVE)
[2023-08-18 15:49] LABS: Segmented Neut Absolute Manual 3.31 10^3/uL (1.4-6.5)
[2023-08-18 15:50] LABS: Band Neutrophils Absolute 0.2 10^3/uL (0.0-0.3); Lymphocytes Absolute Manual 0.33 10^3/uL (1.20-3.80); Monocytes Absolute Manual 0.37 10^3/uL (0.30-0.80); Toxic Granulation 1+
== END 2023-08-18 12:00 | disposition home or self-care (01) ==
LOC: LAB 12:00
PROVIDERS: PCP Family Medicine; Visit Provider Family Medicine
DX: D64.9 Anemia, unspecified (principal); D72.821 Monocytosis (symptomatic)
CPT/HCPCS: 36415; 85007; 85027; 86308

== ENCOUNTER 2023-08-31 13:43 | Outpatient (OUT) | payer MEDICARE, SELFPAY ==
--- NOTE | 2023-08-31 14:38 | P.CN_ITS ---
Consult Note: HPI Data of Consult Patient: known to practice within the last 3 years Requesting Physician: Vivian Meza NP Primary Care Provider: Luis Rogers MD Consult Narrative Reason for consult: f/u Narrative: Alexa Delgado a pleasant 82 year old female presents for evaluation and management of chronic pain. Patient rating pain 9/10 today. Patient has found significant improvement in pain and functional ability with past procedures and current medication regimen. Pain still increases to moderate to severe with twisting, pulling, pushing, walking, stairs, and reaching up. Pain decreased with lying down, heat, and medications. Denies side effects from current medication regimen. Reporting significant left leg and knee pain, denies fall. cc:: CC: Vivian Meza NP Review of Systems ROS Status of ROS 10 or more systems reviewed and unremark able except as noted in history and below Musculoskeletal Reports: back pain, extremity pain and joint pain PFSH PFSH Medical History Pelvic fracture ?S32.9XXA - Fracture of unspecified parts of lumbosacral spine and pelvis, initial encounter for closed fracture (ICD-10) TIA (transient ischemic attack) ?G45.9 - Transient cerebral ischemic attack, unspecified (ICD-10) Closed fracture of coccyx ?S32.2XXA - Fracture of coccyx, initial encounter for closed fracture (ICD- 10) Osteoarthritis ?M19.90 - Unspecified osteoarthritis, unspecified site (ICD-10) H/O pyelonephritis ?Z87.448 - Personal history of other diseases of urinary system (ICD-10) Syncope ?R55 - Syncope and collapse (ICD-10) Generalized weakness ?R53.1 - Weakness (ICD-10) Dizziness ?R42 - Dizziness and giddiness (ICD-10) Surgical History Pain management ?R52 - Pain, unspecified (ICD-10) H/O bladder repair surgery ?Z98.890 - Other specified postprocedural states (ICD-10) H/O breast surgery ?Z98.890 - Other specified postprocedural states (ICD-10) H/O knee surgery ?Z98.890 - Other specified postprocedural states (ICD-10) H/O foot surgery ?Z98.890 - Other specified postprocedural states (ICD-10) History of right knee joint replacement ?Z96.651 - Presence of right artificial knee joint (ICD-10) History of YAG laser capsulotomy of lens ?Z98.49 - Cataract extraction status, unspecified eye (ICD-10) Hx laparoscopic cholecystectomy ?Z90.49 - Acquired absence of other specified parts of digestive tract (ICD- 10) H/O: hysterectomy ?Z90.710 - Acquired absence of both cervix and uterus (ICD-10) History of arthroscopic knee surgery ?Z98.890 - Other specified postprocedural states (ICD-10) H/O discectomy ?Z98.890 - Other specified postprocedural states (ICD-10) H/O dilation and curettage ?Z98.890 - Other specified postprocedural states (ICD-10) History of appendectomy ?Z90.49 - Acquired absence of other specified parts of digestive tract (ICD- 10) Hx of tonsillectomy ?Z90.89 - Acquired absence of other organs (ICD-10) Social History Previous occupational history: Retired, , lives at home Meds Home Medications and Allergies Home Medications ?Medication ?Instructions ?Recorded ?Confirmed ?Type B complex with vitamin 1 cap PO DAILY 07/26/22 06/06/23 History L-szchxetnd-yxgp capsule Buderer compound cream topical DAILY 07/26/22 History acetaminophen 500 mg tablet 1,000 mg PO BID pain 07/26/22 06/06/23 History (Tylenol Extra Strength) aspirin 81 mg tablet,delayed 81 mg PO DAILY 07/26/22 06/06/23 History release blue emu 1 g topical DAILY 07/26/22 06/06/23 History calcium carb-vit D3-minerals 600 1 tab PO DAILY 07/26/22 06/06/23 History mg calcium-400 unit tablet capsaicin 0.025 % topical patch 1 patch topical DAILY pain 07/26/22 06/06/23 History (Salonpas-Hot) citalopram 10 mg tablet 10 mg PO DAILY 07/26/22 06/06/23 History fexofenadine 180 mg tablet 180 mg PO DAILY 07/26/22 06/06/23 History (Benita Allergy) flaxseed oil 1,000 mg capsule 1,000 mg PO DAILY 07/26/22 06/06/23 History glucosamine 750 ys-gtqkpm-hxy 2-C 1 tab PO DAILY 07/26/22 06/06/23 History 30 mg-D3 1,000 unit-miada 1 mg tablet (Qtvemucwygr-Ewbemitxcou-XIB + vitD) isosorbide mononitrate 30 mg 30 mg PO DAILY 07/26/22 06/06/23 History tablet,extended release 24 hr levothyroxine 75 mcg capsule 75 mcg PO DAILY 07/26/22 06/06/23 History liothyronine 25 mcg tablet 25 mcg PO DAILY 07/26/22 06/06/23 History (Cytomel) melatonin 3 mg capsule 3 mg PO DAILY 07/26/22 06/06/23 History metoprolol succinate 50 mg 50 mg PO BID 07/26/22 06/06/23 History tablet,extended release 24 hr multivitamin 1 tab PO DAILY 07/26/22 06/06/23 History nitroglycerin 0.4 mg sublingual 0.4 mg sublingual Q5M PRN chest 07/26/22 06/06/23 History tablet pain meclizine 25 mg tablet 25 mg PO QID PRN dizzy #20 tabs 08/10/22 06/06/23 Rx cyclobenzaprine 10 mg tablet 10 mg PO BEDTIME 04/20/23 06/06/23 History furosemide 40 mg tablet 40 mg PO DAILY 04/20/23 06/06/23 History memantine 21 mg capsule 21 mg PO Q24H 04/20/23 06/06/23 History sprinkle,extended release 24hr denosumab 60 mg/mL subcutaneous mg subcut .Q6MONS 04/27/23 History syringe (Prolia) diclofenac sodium 50 mg 50 mg PO BID 04/27/23 06/06/23 History tablet,delayed release hydrocodone 5 mg-acetaminophen 325 1 tab PO TID PRN pain #90 tabs 06/06/23 Rx mg tablet hydrocodone 5 mg-acetaminophen 325 1 tab PO TID PRN pain #90 tabs 07/13/23 Rx mg tablet hydrocodone 5 mg-acetaminophen 325 1 tab PO TID PRN pain #90 tabs 08/19/23 Rx mg tablet hydrocodone 5 mg-acetaminophen 325 1 tab PO TID PRN pain #90 tabs 08/22/23 Rx mg tablet Allergies Allergy/AdvReac Type Severity Reaction Status Date / Time Penicillins Allergy Severe Hives Verified 06/06/23 10:47 codeine AdvReac Intermediate Dizziness Verified 06/06/23 10:47 fluconazole [From Diflucan] AdvReac Intermediate Verified 06/06/23 10:47 quinine [From Quinamm] AdvReac Mild Headache Verified 06/06/23 10:47 decongest multi-action AdvReac Mild Uncoded 06/06/23 10:47 Exam Constitutional Documenting provider has reviewed patient's vital signs: yes Common normals: no apparent distress, oriented x3, healthy appearing, alert and well nourished General appearance: cooperative HENMT Common normals: normocephalic, hearing grossly normal bilaterally and moist oral mucous membranes Head and scalp: normocephalic Eye Common normals: PERRL Pupil: PERRL Neck & C-Spine Common normals: full ROM General: normal visual inspection Chest Common normals: inspection of chest normal Respiratory Common normals: normal respiratory effort, no retractions and no use of accessory muscles Back & Pelvis Lumbar spine/lower back: ROM limited, pain with ROM, paraspinal muscle tenderness, paraspinal muscle spasm and straight leg raise positive left Sacroiliac joints: SI joint(s) abnormal Other: multiple trigger points as noted below strength 3.5/5 in LLE, 4/5 in RLE decreased sensation to left L4,5,S1 dermatomal pattern Extremity Common normals: normal to inspection Right lower extremity: hip joint Left lower extremity: knee joint Left knee: palpation (moderate to severe pain ), ROM (limited, crepitus noted. pain with medial/lateral stress testing) and other Other: no pain with internal and external rotation of right hip Neuro Common normals: oriented x3, CN's II-XII intact bilaterally, moves all extremities, no focal motor deficits, no sensory deficits noted and deep tendon reflexes 2+ bilaterally Sensorium/orientation: alert Gait (neuro): antalgic and assistive device used walker Motor exam: no movement abnormalities noted and strength abnormal Psych Common normals: mental status grossly normal, thought process normal, cooperative, affect normal, speech normal and activity/motor behavior normal Speech: normal speech Thought process: normal thought process Results Additional Findings Additional findings: If on a controlled substance or opioids, I have checked an [place]AR[place] report on this patient and there are no aberrancies noted in the prescribing history.??If on a controlled substance or opioid a drug screen was completed and reviewed within the last year, and if there has not been a drug screen completed we ordered one today to monitor higher risk, state monitored pain medication use. As part of providing excellent, safe, comprehensive care, the following was completed at our patient's visit: 1. A medication reconciliation and review to ensure accurate knowledge of current/active medications, including asking our patients to inform us about any jjqc-ivy-xlgqxqf medications or herbal remedies/nutritional supplements/alternative remedies. 2. A review to specifically ensure our patients have had annual screening for screening for depression, screening for tobacco use, and screening for unhealthy alcohol use. For concerning screenings had a discussion with the patient, provided patient education, and recommended follow-up with primary care provider when appropriate. If patient noted with a risk of falling, they received education on strength, gait, and balance training to prevent future risk of falling. Assessment and Plan Assessment and Plan (1) Myalgia, other site: Assessment and Plan: bilateral paralumbar and gluteal TPI performed OPERATION:?Trigger Point Injection. ANESTHESIA:?Local COMPLICATIONS:?None. DESCRIPTION OF PROCEDURE:?The procedure risks, hazards and alternatives were discussed with the patient and a proper consent was obtained. The area over the myofascial spasm was prepped with alcohol utilizing sterile technique. After isolating it between two palpating fingertips a 25-gauge 1.5 needle was placed in the center of the myofascial spasms and a negative aspiration was performed. Then 1cc of bupivacaine/lidocaine/triamcinolone was injected into each trigger point. The patient tolerated the procedure well without any apparent difficulties or complications. They were feeling relief by the time the block had set. (2) Lumbar stenosis with neurogenic claudication: (3) Chronic, continuous use of opioids: Assessment and Plan: I feel these medications are improving the patient's quality of life and allow them to tolerate activities of daily living as well as participate in recreational activity.? The patient does not report intolerable side effects. The patient is NOT opioid naive and non-pharmacologic and non-opioid treatment has failed to significantly relieve the patient's pain and improve functionality. The patient has a diagnosis that is related to a somatic or visceral pain etiology. ? ?? I reviewed with the patient the potential risks and side effects with the use of? opioid medications including but not limited to respiratory depression,? sedation, and even . I verified the patient has access to naloxone should? these effects occur. I advised the patient to avoid the use of any other? sedation substances including alcohol, THC, and benzodiazepines while? taking opioid medications due to the risk of compounding side effects and? detrimental outcomes. I reviewed the [employer], pain treatment agreement, urine? drug screen, and opioid start talking forms. The patient was advised to let? their family know they had Naloxone in case they would need to administer? the medication.? ?? A drug screen was completed within the last year, and no aberrancies were noted regarding their use of controlled substances. The patient understands they are subject to the terms and conditions of the pain contract that they have signed. ? ?? I have checked an OARRS report on this patient today and there are no aberran cies noted in the prescribing history.? (4) Sacroiliitis: (5) Lumbar degenerative disc disease: (6) Left knee pain: Plan TPI performed as noted above Left knee xray for left knee pain Left L4-5 L5-S1 TFESI under fluoroscopy for lumbar radiculopathy/lumbar stenosis with NC left SIJ injection under fluoroscopy continue current medications tolerating well without side effects f/u 2 weeks after injections complete
== END 2023-08-31 13:44 | disposition home or self-care (01) ==
LOC: PM 13:43
PROVIDERS: PCP Family Medicine; Visit Provider Nurse Practitioner
DX: M79.18 Myalgia, other site (principal); M48.062 Spinal stenosis, lumbar region with neurogenic claudication; Z79.891 Long term (current) use of opiate analgesic; M25.562 Pain in left knee; M51.36 Other intervertebral disc degeneration, lumbar region; M46.1 Sacroiliitis, not elsewhere classified
CPT/HCPCS: 20552; J0665; J3301

== ENCOUNTER 2023-09-01 13:31 | Outpatient (OUT) | payer MEDICARE, SELFPAY ==
[2023-09-01 13:55] LABS: Hematocrit 33.8 % (36.0-48.0); Hemoglobin 11.2 g/dL (12.0-16.0); Mean Corpuscular HGB Conc 33.1 g/dL (29.9-35.2); Mean Corpuscular Hemoglobin 32.3 pg (26.7-34.0); Mean Corpuscular Volume 97.4 fL (81.0-99.0); Platelet Count 268 10^3/uL (150-450); Red Blood Count 3.47 10^6/uL (4.20-5.40); Red Cell Distribution Width 13.4 % (11.0-15.0); White Blood Count 6.3 10^3/uL (4.0-11.0)
[2023-09-01 15:26] LABS: Anisocytosis 1+; Eosinophils Absolute Manual 0.06 10^3/uL (0.00-0.70); Lymphocytes Absolute Manual 0.63 10^3/uL (1.20-3.80); Monocytes Absolute Manual 0.18 10^3/uL (0.30-0.80); Segmented Neut Absolute Manual 5.41 10^3/uL (1.4-6.5)
== END 2023-09-01 13:32 | disposition home or self-care (01) ==
LOC: LAB 13:32
PROVIDERS: PCP Family Medicine; Visit Provider Family Medicine
DX: D64.9 Anemia, unspecified (principal)
CPT/HCPCS: 36415; 82728; 83540; 85007; 85027

== ENCOUNTER 2023-09-02 11:15 | Outpatient (OUT) | payer MEDICARE, SELFPAY ==
--- NOTE | 2023-09-02 11:45 | XR_ITS ---
The [address] [address] Patient Name: KARINA CORMIER MRN: [id number] date: 1940 Sex: F Assigned Patient Location: [facility] Current Patient Location: [facility] Accession/Order Number: [id number] Exam Date: 09/02/2023 11:30 Report Date: 09/02/2023 15:28 At the request of: EPIFANIO EVERETT Procedure: XR knee LT 4V PROCEDURE: XR knee LT 4V COMPARISON: None. HISTORY: Left Knee Pain FINDINGS: BONES:No acute fracture or dislocation. Moderate tricompartmental osteoarthritis with joint space narrowing marginal osteophyte formation most significant along the patellofemoral joint. SOFT TISSUES:Negative. No visible soft tissue swelling. EFFUSION:None visible. OTHER: Chondrocalcinosis XR/XR knee LT 4V IMPRESSION: Osteoarthritis most significant in the anterior compartment with chondrocalcinosis Electronically authenticated by: HERMES MENDOZA Date: 09/02/2023 15:28
== END 2023-09-02 11:16 | disposition home or self-care (01) ==
LOC: RAD 11:19
PROVIDERS: PCP Family Medicine; Visit Provider Nurse Practitioner
DX: M25.562 Pain in left knee (principal); M17.12 Unilateral primary osteoarthritis, left knee
CPT/HCPCS: 73564

== ENCOUNTER 2023-09-12 10:26 | Day surgery (SDC) | payer MEDICARE, SELFPAY ==
[2023-09-12 11:21] VITALS: BP 165/86; PULSE 84; TEMP 36.4; O2SAT 97
[2023-09-12 11:48] VITALS: BP 192/87; PULSE 90; O2SAT 99
[2023-09-12 11:49] VITALS: BP 198/88; PULSE 95; O2SAT 100
[2023-09-12] MEDS: 0.9 % SODIUM CHLORIDE 10 ML SYRINGE - SALINE FLUSH INJ (11:53)
--- NOTE | 2023-09-12 11:53 | P.ON_ITS ---
Date of procedure: 09/12/23 Pre-op diagnosis: Pain due to lumbar stenosis with neurogenic claudication Post-op diagnosis: same as pre-op Procedure: Procedure: Left L4-5, L5-S1 transforaminal epidural steroid injection Medications: Bupivacaine 0.25% 2cc, lidocaine 2% 1cc, kenalog 80mg The patient was seen and examined in the preoperative holding area.? Informed consent was obtained and placed on the chart.? Patient was brought to the medical procedure unit and placed in the prone position where a timeout was completed verifying the correct patient, procedure site, position, and planned special equipment using sterile aseptic technique.? Under direct fluoroscopic visualization a 25-gauge Quincke tipped spinal needle was advanced to the designated neural foramen where contrast dye was injected to show adequate spread.? The needle was inserted at level left L4-5. There was no evidence of vascular or adverse uptake.? Epidural spread was appreciated.? The above- mentioned injectate was then placed in a 1.5 mL aliquot preceded by negative aspiration.? The needle was removed. The needle was inserted and the procedure repeated at level left L5-S1.? The surgery site was covered.? Patient was taken to the postprocedural recovery area and monitored for an appropriate length of time before found suitable for discharge in the accompaniment of a responsible adult. Anesthesia: Local Surgeon: Lyn Quiñones Pathology: none sent Condition: stable Disposition: no change
[2023-09-12] MEDS: BUPIVACAINE HCL 0.25% PF 25 MG/10 ML VIAL INJ (11:54)
[2023-09-12] MEDS: IOHEXOL 240 MG/ML - 10 ML VIAL 24 MG INJ (11:54)
[2023-09-12] MEDS: LIDOCAINE HCL 2% 400 MG/20 ML MDV 3 ML INJ (11:54)
[2023-09-12] MEDS: TRIAMCINOLONE ACETONIDE 40 MG/ML VIAL 80 MG INJ (11:55)
== END 2023-09-12 12:07 | disposition home or self-care (01) ==
PROVIDERS: PCP Family Medicine; Visit Provider Anesthesiology
DX: M48.062 Spinal stenosis, lumbar region with neurogenic claudication (principal); R52 Pain, unspecified
CPT/HCPCS: 64483; 64484; J0665; J3301; Q9966

== ENCOUNTER 2023-09-26 10:26 | Day surgery (SDC) | payer MEDICARE, SELFPAY ==
[2023-09-26 10:53] VITALS: BP 154/79; PULSE 82; TEMP 36.9; O2SAT 98
[2023-09-26 11:23] VITALS: BP 190/90; BP 193/78; PULSE 80; PULSE 83; O2SAT 97; O2SAT 98
[2023-09-26] MEDS: BUPIVACAINE HCL 0.25% PF 25 MG/10 ML VIAL 5 ML INJ (11:24)
[2023-09-26] MEDS: TRIAMCINOLONE ACETONIDE 40 MG/ML VIAL INJ (11:25)
[2023-09-26] MEDS: LIDOCAINE HCL 2% 400 MG/20 ML MDV 15 ML INJ (11:25)
[2023-09-26] MEDS: IOHEXOL 240 MG/ML - 10 ML VIAL INJ (11:25)
--- NOTE | 2023-09-26 11:27 | W.PM.PROCNOT ---
Date of procedure: 09/26/23 Pre-op diagnosis: Pain due to left sacroiliitis Post-op diagnosis: same as pre-op Procedure: Procedure: Left sacroiliac joint injection Medications: Bupivacaine 0.25% 3cc, kenalog 40mg After informed consent was obtained, the patient was brought to the medical procedure unit and placed in the prone position, when a timeout was completed verifying correct patient, procedure, site, positioning, implant, and/or special equipment.? The skin overlying the area was prepped and draped in standard sterile fashion using alcohol.? A 25-gauge needle was inserted towards the left sacroiliac joint under direct fluoroscopic imaging.? Needle tip was advanced until the joint was encountered.? We instilled a total of 2 mL of solution.? Postoperatively needles were removed.? The patient tolerated the procedure well without complication.? The patient reported reduction in pain symptoms postoperatively. Anesthesia: Local Surgeon: Lyn Quiñones Pathology: none sent Condition: stable Disposition: no change
== END 2023-09-26 11:32 | disposition home or self-care (01) ==
LOC: SURGOUT 10:27
PROVIDERS: PCP Family Medicine; Visit Provider Anesthesiology
DX: M46.1 Sacroiliitis, not elsewhere classified (principal)
CPT/HCPCS: 27096; J0665; J3301; Q9966

== ENCOUNTER 2023-10-06 14:24 | Outpatient (OUT) | payer MEDICARE, SELFPAY ==
--- NOTE | 2023-10-06 14:40 | P.CN_ITS ---
Consult Note: HPI Data of Consult Patient: known to practice within the last 3 years Requesting Physician: Vivian Meza NP Primary Care Provider: Luis Rogers MD Consult Narrative Reason for consult: f/u Narrative: Alexa Delgado a pleasant 82 year old female presents for evaluation and management of chronic pain. Patient rating pain 9/10 today. Patient has found significant improvement in pain and functional ability with past procedures and current medication regimen. Pain still increases to moderate to severe with twisting, pulling, pushing, walking, stairs, and reaching up. Pain decreased with lying down, heat, and medications. Denies side effects from current medication regimen. Recently completed xray of left knee which is consistent with OA. Recent left L4-5 L5-S1 TFESI and left SIJ injection providing >50% improvement in pain and functional ability cc:: CC: Vivian Meza NP Review of Systems ROS Status of ROS 10 or more systems reviewed and unremark able except as noted in history and below Musculoskeletal Reports: back pain, extremity pain and joint pain PFSH PFSH Medical History Pelvic fracture ?S32.9XXA - Fracture of unspecified parts of lumbosacral spine and pelvis, initial encounter for closed fracture (ICD-10) TIA (transient ischemic attack) ?G45.9 - Transient cerebral ischemic attack, unspecified (ICD-10) Closed fracture of coccyx ?S32.2XXA - Fracture of coccyx, initial encounter for closed fracture (ICD- 10) Osteoarthritis ?M19.90 - Unspecified osteoarthritis, unspecified site (ICD-10) H/O pyelonephritis ?Z87.448 - Personal history of other diseases of urinary system (ICD-10) Syncope ?R55 - Syncope and collapse (ICD-10) Generalized weakness ?R53.1 - Weakness (ICD-10) Dizziness ?R42 - Dizziness and giddiness (ICD-10) Surgical History Pain management ?R52 - Pain, unspecified (ICD-10) H/O bladder repair surgery ?Z98.890 - Other specified postprocedural states (ICD-10) H/O breast surgery ?Z98.890 - Other specified postprocedural states (ICD-10) H/O knee surgery ?Z98.890 - Other specified postprocedural states (ICD-10) H/O foot surgery ?Z98.890 - Other specified postprocedural states (ICD-10) History of right knee joint replacement ?Z96.651 - Presence of right artificial knee joint (ICD-10) History of YAG laser capsulotomy of lens ?Z98.49 - Cataract extraction status, unspecified eye (ICD-10) Hx laparoscopic cholecystectomy ?Z90.49 - Acquired absence of other specified parts of digestive tract (ICD- 10) H/O: hysterectomy ?Z90.710 - Acquired absence of both cervix and uterus (ICD-10) History of arthroscopic knee surgery ?Z98.890 - Other specified postprocedural states (ICD-10) H/O discectomy ?Z98.890 - Other specified postprocedural states (ICD-10) H/O dilation and curettage ?Z98.890 - Other specified postprocedural states (ICD-10) History of appendectomy ?Z90.49 - Acquired absence of other specified parts of digestive tract (ICD- 10) Hx of tonsillectomy ?Z90.89 - Acquired absence of other organs (ICD-10) Social History Previous occupational history: Retired, , lives at home Meds Home Medications and Allergies Home Medications ?Medication ?Instructions ?Recorded ?Confirmed ?Type B complex with vitamin 1 cap PO DAILY 07/26/22 09/26/23 History V-ugmclfbjw-jdtg capsule Buderer compound cream topical DAILY 07/26/22 History acetaminophen 500 mg tablet 1,000 mg PO BID pain 07/26/22 09/26/23 History (Tylenol Extra Strength) aspirin 81 mg tablet,delayed 81 mg PO DAILY 07/26/22 09/26/23 History release blue emu 1 g topical DAILY 07/26/22 09/26/23 History calcium carb-vit D3-minerals 600 1 tab PO DAILY 07/26/22 09/26/23 History mg calcium-400 unit tablet capsaicin 0.025 % topical patch 1 patch topical DAILY pain 07/26/22 09/26/23 History (Salonpas-Hot) citalopram 10 mg tablet 10 mg PO DAILY 07/26/22 09/26/23 History fexofenadine 180 mg tablet 180 mg PO DAILY 07/26/22 09/26/23 History ([facility]) flaxseed oil 1,000 mg capsule 1,000 mg PO DAILY 07/26/22 09/26/23 History glucosamine 750 ss-nrcveh-lit 2-C 1 tab PO DAILY 07/26/22 09/26/23 History 30 mg-D3 1,000 unit-maida 1 mg tablet (Wpvaumjwshu-Colwfytexwm-PWS + vitD) isosorbide mononitrate 30 mg 30 mg PO DAILY 07/26/22 09/26/23 History tablet,extended release 24 hr levothyroxine 75 mcg capsule 75 mcg PO DAILY 07/26/22 09/26/23 History liothyronine 25 mcg tablet 25 mcg PO DAILY 07/26/22 09/26/23 History (Cytomel) melatonin 3 mg capsule 3 mg PO DAILY 07/26/22 09/26/23 History metoprolol succinate 50 mg 50 mg PO BID 07/26/22 09/26/23 History tablet,extended release 24 hr multivitamin 1 tab PO DAILY 07/26/22 09/26/23 History nitroglycerin 0.4 mg sublingual 0.4 mg sublingual Q5M PRN chest 07/26/22 09/26/23 History tablet pain meclizine 25 mg tablet 25 mg PO QID PRN dizzy #20 tabs 08/10/22 09/26/23 Rx cyclobenzaprine 10 mg tablet 10 mg PO BEDTIME 04/20/23 09/26/23 History furosemide 40 mg tablet 40 mg PO DAILY 04/20/23 09/26/23 History memantine 21 mg capsule 21 mg PO Q24H 04/20/23 09/26/23 History sprinkle,extended release 24hr denosumab 60 mg/mL subcutaneous 60 mg subcut .Q6MONS 04/27/23 09/26/23 History syringe (Prolia) diclofenac sodium 50 mg 50 mg PO BID 04/27/23 09/26/23 History tablet,delayed release hydrocodone 5 mg-acetaminophen 325 1 tab PO TID PRN pain #90 tabs 06/06/23 09/26/23 Rx mg tablet hydrocodone 5 mg-acetaminophen 325 1 tab PO TID PRN pain #90 tabs 07/13/23 09/26/23 Rx mg tablet hydrocodone 5 mg-acetaminophen 325 1 tab PO TID PRN pain #90 tabs 08/19/23 09/26/23 Rx mg tablet hydrocodone 5 mg-acetaminophen 325 1 tab PO TID PRN pain #90 tabs 08/22/23 09/26/23 Rx mg tablet ferrous sulfate 325 mg (65 mg 325 mg PO BID 09/02/23 09/26/23 History iron) tablet Allergies Allergy/AdvReac Type Severity Reaction Status Date / Time Penicillins Allergy Severe Hives Verified 09/26/23 10:50 codeine AdvReac Intermediate Dizziness Verified 09/26/23 10:50 fluconazole [From Diflucan] AdvReac Intermediate Hives Verified 09/26/23 10:50 quinine [From Quinamm] AdvReac Mild Headache Verified 09/26/23 10:50 decongest multi-action AdvReac Mild Headache Uncoded 09/26/23 10:50 Exam Constitutional Documenting provider has reviewed patient's vital signs: yes Common normals: no apparent distress, oriented x3, healthy appearing, alert and well nourished General appearance: cooperative HENMT Common normals: normocephalic, hearing grossly normal bilaterally and moist oral mucous membranes Head and scalp: normocephalic Eye Common normals: PERRL Pupil: PERRL Neck & C-Spine Common normals: full ROM General: normal visual inspection Chest Common normals: inspection of chest normal Respiratory Common normals: normal respiratory effort, no retractions and no use of accessory muscles Back & Pelvis Lumbar spine/lower back: ROM limited, pain with ROM and straight leg raise negative bilaterally Sacroiliac joints: SI joint(s) abnormal Other: strength 4/5 in BLE sensation intact BLE Extremity Common normals: normal to inspection Right lower extremity: hip joint Left lower extremity: knee joint Left knee: palpation (moderate to severe pain ), ROM (limited, crepitus noted. pain with medial/lateral stress testing) and other Other: no pain with internal and external rotation of right hip Neuro Common normals: oriented x3, CN's II-XII intact bilaterally, moves all extremities, no focal motor deficits, no sensory deficits noted and deep tendon reflexes 2+ bilaterally Sensorium/orientation: alert Gait (neuro): antalgic and assistive device used walker Motor exam: strength 5/5 throughout and no movement abnormalities noted Psych Common normals: mental status grossly normal, thought process normal, cooperative, affect normal, speech normal and activity/motor behavior normal Speech: normal speech Thought process: normal thought process Results Additional Findings Additional findings: If on a controlled substance or opioids, I have checked an [place] report on this patient and there are no aberrancies noted in the prescribing history.??If on a controlled substance or opioid a drug screen was completed and reviewed within the last year, and if there has not been a drug screen completed we ordered one today to monitor higher risk, state monitored pain medication use. As part of providing excellent, safe, comprehensive care, the following was completed at our patient's visit: 1. A medication reconciliation and review to ensure accurate knowledge of current/active medications, including asking our patients to inform us about any tiwp-ikz-ykvheoh medications or herbal remedies/nutritional supplements/al ternative remedies. 2. A review to specifically ensure our patients have had annual screening for screening for depression, screening for tobacco use, and screening for unhealthy alcohol use. For concerning screenings had a discussion with the patient, provided patient education, and recommended follow-up with primary care provider when appropriate. If patient noted with a risk of falling, they received education on strength, gait, and balance training to prevent future risk of falling. Assessment and Plan Assessment and Plan (1) Myalgia, other site: (2) Lumbar stenosis with neurogenic claudication: (3) Chronic, continuous use of opioids: Assessment and Plan: I feel these medications are improving the patient's quality of life and allow them to tolerate activities of daily living as well as participate in recreational activity.? The patient does not report intolerable side effects. The patient is NOT opioid naive and non-pharmacologic and non-opioid treatment has failed to significantly relieve the patient's pain and improve functionality. The patient has a diagnosis that is related to a somatic or visceral pain etiology. ? ?? I reviewed with the patient the potential risks and side effects with the use of? opioid medications including but not limited to respiratory depression,? sedation, and even . I verified the patient has access to naloxone should? these effects occur. I advised the patient to avoid the use of any other? sedation substances including alcohol, THC, and benzodiazepines while? taking opioid medications due to the risk of compounding side effects and? detrimental outcomes. I reviewed the [employer], pain treatment agreement, urine? drug screen, and opioid start talking forms. The patient was advised to let? their family know they had Naloxone in case they would need to administer? the medication.? ?? A drug screen was completed within the last year, and no aberrancies were noted regarding their use of controlled substances. The patient understands they are subject to the terms and conditions of the pain contract that they have signed. ? ?? I have checked an [place] report on this patient today and there are no aberrancies noted in the prescribing history.? (4) Sacroiliitis: (5) Lumbar degenerative disc disease: (6) Left knee pain: Plan left knee xray reviewed with pt, consistent with moderate OA. can call to schedule left knee injection if needed continue current medications tolerating well without side effects continue aquatic therapy f/u 3 months, sooner if needed
--- OUTSIDE RECORDS SUMMARY | 2023-10-06 14:45 | XMS_ITS | CCD ---
Author Organization [facility] Care Team Providers Care Devops Consultant Name Role Phone PHYSICIAN, DEFAULT Unavailable Unavailable PHYSICIAN, DEFAULT Unavailable Unavailable Haley Matos DO, George Cajetan Unavailable Galina Rogers MD Primary Care Provider Lakshmipathy, Narendranath Unavailable [phone] Haley Matos DO, George Cajeaydee Unavailable ESTELA ., DR [...] Unavailable HOY ., DR MOJICA Admitting Unavailable REJI, DR HERMES Jean Baptiste Consulting Unavailable HOY [...] Unavailable HOY ., DR MOJICA Consulting Unavailable WHITNEY, DR HERMES Jean Baptiste Consulting Unavailable LATANYA ., DR NIKO Austin Attending Unavailable LATANYA ., DR NIKO Austin Admitting Unavailable SEQUEIRA ., NOEMI Consulting Unavailable ESTELA ., DR MOJICA Primary Care Unavailable Haley Matos, Colette MOORE Unavailable Galina Rogers MD Unavailable GALINA ROGERS Primary Care Unavailable CAROLYN VANEGAS Attending Unavailable MARTY DOZIER Attending Unavailable JR. DE LEON GEORGE C Attending Unavailvanda DE LEON JR., COLETTE Dorman Referring Unavaila Galina Gillette Attending Unavailable Galina Rogers Admitting Unavailable Gimiguel MEANS, Andrius Adams Attending Unavailable Gikoriitis , Andrius Adams Attending Unavailable Ishmael MEANS, Andrius Adams Attending Unavailable Ishmael MEANS, Andrius Adams Attending Unavailable Ishmael MEANS, Andrius Adams Attending Unavailable Ishmael MEANS, Lyn Adams Attending Unavailable Ishmael MEANS, Lyn Adams Attending Unavailable Allergies Allergy Classification Reported Allergen(s) Allergy Type Date of Onset Reaction(s) Facility (4 sources) Codeine; Translations: [CODEINE] Drug Allergy 3 Unknown [facility] (4 sources) Penicillins; Translations: [PENICILLINS] Drug Allergy 3 Unknown [facility] (4 sources) pregabalin; Translations: [PREGABALIN] Drug Allergy 3 Intolerance [facility] Work Phone: (4 sources) Propoxyphene; Translations: [PROPOXYPHENE] Drug Allergy 3 Rash, Unknown [facility] (4 sources) quiNINE; Translations: [QUINAMM] Drug Allergy 3 GI Upset [facility] (5 sources) Decongest Multi-Action; Translations: [Decongest Multi-Action] Drug Allergy 3 Other: See Comments [facility] (1 source) Acetaminophen / HYDROcodone Drug Allergy [facility] (2 sources) Codeine Drug Allergy 3 [facility] (1 source) Fluconazole Drug Allergy [facility] (2 sources) Penicillins Drug allergy (disorder) 3 [facility] (1 source) pregabalin Drug Allergy [facility] (2 sources) Propoxyphene Drug Allergy [facility] (1 source) quiNINE Drug Allergy [facility] Medications Completed/Discontinued Medications Medication Drug [...] above: Take by mouth twice daily. 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 MIXER CURRENT USE OF ASPIRIN] Onset: 04-06-2022 Episodic Other aftercare (1 source) Other shelter (current) drug therapy; Translations: [OTH GLAZE MIXER CURRENT DRUG THERAPY] Onset: 04-06-2022 Episodic Other [...] Test Name Value Interpretation Reference Range Facility [facility] 08-18-2023 L Specimen: [id number] Received: 08/22/23 Status: [facility] Num: [id number] Spec Type: Impression Subm Dr: Galina Rogers MD Tissues: PATHPER Procedures: PATHREVIEW Age/ Patient Sex Location Account Attending Physician Alexa Delgado 83/F [place] [id number] Galina Rogers MD SPEC NUM: [id number] RECD: 08/22/23 STATUS: CECILIA MATHEW NUM: [id number] JANET: 08/18/[address]: Galina Rogers MD ENTERED: 08/22/[address]: Annie Rivas SPEC TYPE: Impression DEPT: SHELLIE Simmons ENTERED BY: [id number] RECV BY: [id number] ORDERED: PATHREVIEW ORDERED: PATHREVIEW Pathologist Review Abnormal CBC for peripheral blood smear review: -Mild anemia of normocytic type, including occasional macrocytes -Borderline leukopenia with severe lymphocytopenia -No obvious morphological abnormality of the leukocyte population -Predominantly small sized platelets -At least 3 eosinophils are noted, also appear smaller cytoplasmic granules than other usual case -1 suspected basophil, also in the the thicker portion of the smears, and may not be easily discernible Comment: -The cause of mild anemia in an elderly female patient is not clear in this case without provided clinical history, but generally may suspect anemia of the chronic disease type in the elderly patient population. The cause of the lymphocytopenia may include immunocompromised status, history of malignancy under treatment such as radiation therapy, occasionally, but unlikely in this case, in sepsis, or certain types of drug therapy such as antineoplastics, or adrenocorticosteroid, requiring clinical correlations. In case of an abnormal CBC with discrepancy during manual cell count review, a manual differential count may be appended to the initial report for the needed correction CPT: 62081 ---- ---- Specimen: [id number] Received: 08/22/23 Status: CECILIA Adriana Num: [id number] Spec Type: Impression Subm Dr: Galina Rogers MD Tissues: PATHPER Procedures: PATHREVIEW ---- Patient: Alexa Delgado [id number] (Continued) ---- Signed (signature on file) [place] Abdul MD 08/24/23918 [place] [facility] [facility] Office Visit ([facility] ) ALEXA DELGADO ([id number]) 1940 F Date Time Provider Department 09/21/22 1:00 PM CAROLYN VANEGAS [facility] During your visit today, we recorded [...] Percentile 2 (more content not included)... Normal [facility] XR LSPINE 2_3 VIEWSon 2022 XR [...] by: HERMES MENDOZA Date: 2022-07-16 11:34 Normal [facility] CNOVon 05-14-2022 CNOV Office Visit ([facility] ) ALEXA DELGADO ([id number]) 1940 F Date Time Provider Department 05/14/22 2:30 PM MARTY DOZIER [facility] During your visit today, we recorded the following information about you: Pulse Blood pressure Weight Height 72/minute 158/87 76.4 kg 1.524 m Marty Dozier DO 05/15/2022 10:02 PM Signed [facility] Initial [...] Ratio: R>L low back Current Treatment: Medications Fenwick 5-325 mg BID - helps Diclofenac 75 [...] but still has pain -01/28/22 Noemi Sequeira SUPERVISOR FILTRATION: BL Lumbar erector spinae TPI (0.125% Marcaine, [...] ongoing as of 04/17/21 -03/08/21 Noemi Sequeira SUPERVISOR FILTRATION: Left rhomboid TPI (0.125% Marcaine, 40 mg Kenalog) -02/03/21 LESI - moderate relief for 4 days Prior spine surgery: -2006 L4-5 Discectomy Previously treated by: -[facility], previously Dr. Niko [...] today. She has an evaluation at the [facility] tomorrow at the Spine Center. RECOMMENDATIONS: We will see the pat (more content not included)... Normal [facility] CULTURE URINEon 04-05-2022 CULTURE URINE Culture Observations : LIGHT GROWTH OF MIXED GENITAL ALANIS. NO POTENTIAL PATHOGENS SEEN. Normal [facility] Comment on above: Performed By: #### U RCX ####[facility] [address] [address]DrLisette Abdul UA RANDOM W/MICROSCOPICon BACTERIA NONE SEEN Normal NONE SEEN [facility] Comment on above: Performed By: #### U AMIC ####[facility] [address] [address]DrLisette Abdul Bilirubin Ql (U) Negative Normal NEGATIVE [facility] Comment on above: Performed By: #### U AMIC ####[facility] Ezexuej[address] [place], [place] [address]Dr. Grace Abdul CAST NONE SEEN Normal NONE SEEN [facility] Comment on above: Performed By: #### U AMIC ####[facility] [address] [place], [place] [address]Dr. Grace Abdul Clarity (U) CLEAR Normal CLEAR [facility] Comment on above: Performed By: #### U AMIC ####[facility] [address] [place], [place] [address]Dr. Grace Abdul Color (U) YELLOW Normal YELLOW [facility] Comment on above: Performed By: #### U AMIC ####[facility] Ystiox[address] [place], [place] [address]Dr. Grace Abdul Crystals LM Nom (Urine sed) NONE SEEN Normal NONE SEEN [facility] Comment on above: Performed By: #### U AMIC ####[facility] Kjcjlnsv[address] [place], [place] [address]Dr. Grace Abdul Epithelial cells LM Ql (Urine sed) RARE Normal NONE SEEN /RARE [facility] Comment on above: Performed By: #### U AMIC ####[facility] K[address] [place], [place] [address]Dr. Grace Abdul Glucose Ql (U) Negative Normal NEGATIVE The [facility] Comment on above: Performed By: #### U AMIC ####[facility] Unonewclpx[address] [place], [place] [address]Dr. Grace Abdul Hemoglobin Ql (U) MODERATE Abnormal NEGATIVE The [facility] Comment on above: Performed By: #### U AMIC ####[facility] K[address]teke[address] [place], [place] [address]Dr. Grace Abdul Ketones Ql (U) TRACE Abnormal NEGATIVE [facility] Comment on above: Performed By: #### U AMIC ####[facility] [address]uf[address] [place], [place] [address]Dr. Grace Abdul LEUKOCYTES TRACE Abnormal NEGATIVE [facility] Comment on above: Performed By: #### U AMIC ####[facility] [address] [place] [address]Dr. Grace Abdul MUCOUS NONE SEEN Normal NONE SEEN [facility] Comment on above: Performed By: #### U AMIC ####[facility] [address] [place] [address]Dr. Grace Abdul Nitrite Ql (U) Negative Normal NEGATIVE The [facility] Comment on above: Performed By: #### U AMIC ####[facility] Wpxthg[address] [place], [place] [address]Dr. Grace Abdul pH (U) 5.0 [pH] Normal 5-9 [facility] Comment on above: Performed By: #### U AMIC ####[facility] [address] [place], [place] [address]Dr. Grace Abdul RBC 0-2 Normal 0-2 [facility] Comment on above: Performed By: #### U AMIC ####[facility] Ocstv[address] [place], [place] [address]Dr. Grace Abdul SPEC GRAVITY 1.015 Normal 1.005-<=1.025 The [facility] Comment on above: Performed By: #### U AMIC ####[facility] [address]lq[address] [place], [place] [address]Dr. Grace Abdul UA PROTEIN Negative Normal NEGATIVE/ TRACE [facility] Comment on above: Performed By: #### U AMIC ####[facility] [address] [place], [place] [address]Dr. Grace Abdul Urobilinogen Qn (U) 0.2 {Ashley'U}/dL Normal 0.2 - 1. 0 [facility] Comment on above: Performed By: #### U AMIC ####[facility] [address] [place], [place] [address]Dr. Grace Abdul WBC 0-2 Abnormal NONE SEEN [facility] Comment on above: Performed By: #### U AMIC ####[facility] Itfxd[address] [place], [place] [address]Dr. Grace Abdul CBC AUTO DIFFon 04-04-2022 BASO # 0.0 103/ul Normal 0.0-0.1 [facility] Comment on above: Performed By: #### C BC ####[facility] [address]cesk[address] [place], [place] [address]Dr. Grace Franko Basophils/100 WBC (Bld) 0.4 % Normal 0.2-2.0 [facility] Comment on above: Performed By: #### C BC ####[facility] Efwpdnujai[address] [place], [place] [address]Dr. Grace Abdul EO # 0.1 103/ul Normal 0.0-0.7 [facility] Comment on above: Performed By: #### C BC ####[facility] Dgdrxnhnjc[address] [place], [place] [address]Dr. Benitalee ann Franko Eosinophils/100 WBC (Bld) 1.3 % Normal 0.9-7.0 [facility] Comment on above: Performed By: #### C BC ####[facility] Kiqza[address]oyom[address] [place], [place] [address]Dr. Grace Abdul Erythrocyte distribution width (RBC) [Ratio] 13.7 % Normal 11.0-15.0 [facility] Comment on above: Performed By: #### C BC ####[facility] W[address] [place], [place] [address]Dr. Grace Abdul Hematocrit (Bld) [Volume fraction] 37.2 % Normal 36.0-48.0 [facility] Comment on above: Performed By: #### C BC ####[facility] Kosqvhbxxd[address] [place], [place] [address]Dr. Benitalee ann Franko Hemoglobin (Bld) [Mass/Vol] 12.4 g/dL Normal 12.0-16.0 [facility] Comment on above: Performed By: #### C BC ####[facility] Qgasx[address] [place], [place] [address]Dr. Grace Abdul IG # 0.02 10e3/ul Normal 0.00-0.03 [facility] Comment on above: Performed By: #### C BC ####[facility] [address] [place] [address]Dr. Grace Abdul IG % 0.4 % Normal 0.0-0.5 [facility] Comment on above: Performed By: #### C BC ####[facility] [address] [place] [address]Dr. Benitalee ann Franko LYMPH # 0.8 103/ul Critically low 1.2-3.8 The [facility] Comment on above: Performed By: #### C BC ####[facility] [address] [place], [place] [address]Dr. Benitalee ann Abdul Lymphocytes/100 WBC (Bld) 13.9 % Critically low 20.5-60.0 [facility] Comment on above: Performed By: #### C BC ####[facility] B[address]bl[address] [place], [place] [address]Dr. Grace Abdul MANUAL DIFF REQ NO Normal The [facility] Comment on above: Performed By: #### C BC ####[facility] [address] [place] [address]Dr. Grace Franko MCH (RBC) [Entitic mass] 30.5 pg Normal 26.7-34.0 [facility] Comment on above: Performed By: #### C BC ####[facility] Ku[address]tis[address] [place], [place] [address]Dr. Grace Franko MCHC (RBC) [Mass/Vol] 33.3 g/dL Normal 29.9-35.2 [facility] Comment on above: Performed By: #### C BC ####[facility] [address]clx[address] [place], [place] [address]DrLisette Abdul MCV (RBC) [Entitic vol] 91.4 fL Normal 81.0-99.0 [facility] Comment on above: Performed By: #### C BC ####[facility] [address]fng[address] [place], [place] [address]DrLisette Abdul MONO # 0.7 103/ul Normal 0.3-0.8 [facility] Comment on above: Performed By: #### C BC ####[facility] [address] [place], [place] [address]Dr. Grace Abdul Monocytes/100 WBC (Bld) 13.5 % Critically high 1.7-12.0 [facility] Comment on above: Performed By: #### C BC ####[facility] [address] [place] [address]Dr. Grace Abdul NEUT # 3.8 103/ul Normal 1.4-6.5 [facility] Comment on above: Performed By: #### C BC ####[facility] [address] [place] [address]Dr. Grace Abdul Neutrophils/100 WBC (Bld) 70.5 % Normal 43.0-75.0 [facility] Comment on above: Performed By: #### C BC ####[facility] [address] [place], [place] [address]Dr. Grace Abdul Platelet mean volume (Bld) [Entitic vol] 9.0 fL Critically low 9.5-13.5 [facility] Comment on above: Performed By: #### C BC ####[facility] [address] [place], [place] [address]Dr. Grace Abdul PLT 283 103/ul Normal 150-450 [facility] Comment on above: Performed By: #### C BC ####[facility] Z[address] [place], [place] [address]Dr. Grace Abdul RBC 4.07 106/ul Critically low 4.20-5.40 [facility] Comment on above: Performed By: #### C BC ####[facility] [address] [place], [place] [address]Dr. Grace Abdul WBC 5.4 103/ul Normal 4.0-11.0 [facility] Comment on above: Performed By: #### C BC ####[facility] Urslpxjbmn[address] [place], [place] [address]Dr. Grace Abdul CT ABD/PELV W CONon 04-04-19 [...] EMILY NAVARRETE Date: 2022-04-04 16:59 Normal [facility] ER URINE PROFILEon 3 Bilirubin Ql (U) Negative Normal NEGATIVE [facility] Comment on above: Performed By: #### ROBERT FELDER ####[facility] [address] [place] [address]Dr. Grace Abdul Clarity (U) CLEAR Normal CLEAR [facility] Comment on above: Performed By: #### ROBERT FELDER ####[facility] [address] [place] [address]Dr. Grace Abdul Color (U) LT. YELLOW Normal YELLOW [facility] Comment on above: Performed By: #### ROBERT FELDER ####[facility] [address] [place], [place] [address]Dr. Grace HIGGINS A micrscopic examination will be performed if indicated. Normal [facility] Comment on above: Performed By: #### ROBERT FELDER ####[facility] [address] [place], [place] [address]Dr. Grace Abdul Glucose Ql (U) Negative Normal NEGATIVE The [facility] Comment on above: Performed By: #### GINA FELDERRO ####[facility] [address] [place], [place] [address]Dr. Grace Abdul Hemoglobin Ql (U) SMALL Abnormal NEGATIVE The [facility] Comment on above: Performed By: #### ROBERT FELDER ####[facility] [address] [place], [place] [address]Dr. Grace Abdul Ketones Ql (U) Negative Normal NEGATIVE The [facility] Comment on above: Performed By: #### ROBERT FELDER ####[facility] [address] [place], [place] [address]Dr. Grace Abdul LEUKOCYTES TRACE Abnormal NEGATIVE [facility] Comment on above: Performed By: #### ROBERT FELDER ####[facility] [address] [place], [place] [address]Dr. Grace Abdul Nitrite Ql (U) Negative Normal NEGATIVE The [facility] Comment on above: Performed By: #### GINA FELDERRO ####[facility] In[address] [place], [place] [address]Dr. Grace Abdul pH (U) 7.5 [pH] Normal 5-9 [facility] Comment on above: Performed By: #### GINA FELDERRO ####[facility] [address] [place], [place] [address]Dr. Grace Abdul SPEC GRAVITY 1.005 Normal 1.005-<=1.025 The [facility] Comment on above: Performed By: #### GINA FELDERRO ####[facility] [address] [place], [place] [address]Dr. Grace Abdul UA PROTEIN Negative Normal NEGATIVE/ TRACE [facility] Comment on above: Performed By: #### ROBERT FELDER ####[facility] [address] [place] [address]Dr. Grace Abdul UR MICRO IND INDICATED Normal [facility] Comment on above: Performed By: #### ROBERT FELDER ####[facility] [address] [place] [address]Dr. Grace Abdul Urobilinogen Qn (U) 0.2 {Ashley'U}/dL Normal 0.2 - 1. 0 [facility] Comment on above: Performed By: #### ROBERT FELDER ####[facility] [address] [place] [address]DrLisette Abdul LIPASEon 04-04-2022 Lipase [Catalytic activity/Vol] 115.0 U/L Normal 73.0-393.0 [facility] Comment on above: Performed By: #### C JOETB #### [facility] [address] [place] [address] Dr. Grace Abdul PROF 14(COMP METB)on 023 Albumin [Mass/Vol] 3.6 g/dL Normal 3.4-5.0 [facility] Comment on above: Performed By: #### C JOETBH #### [facility] [address] [place] [address] Dr. Grace Abdul Albumin/Globulin [Mass ratio] 1.1 {ratio} Normal [facility] Comment on above: Performed By: #### C VDTBH #### [facility] [address] [place] [address] Dr. Grace Abdul ALP [Catalytic activity/Vol] 74 U/L Normal 46-116 [facility] Comment on above: Performed By: #### C VDTBH #### [facility] [address] [place] [address] Dr. Grace Abdul ALT [Catalytic activity/Vol] 23 U/L Normal 14-59 [facility] Comment on above: Performed By: #### C JOETBH #### [facility] [address] [place], [place] [address] Dr. Grace Abdul Anion gap [Moles/Vol] 12.1 mmol/L Normal [facility] Comment on above: Performed By: #### C VDTBH #### [facility] [address] [address] [address] Grace Abdul AST [Catalytic activity/Vol] 21 U/L Normal 15-37 [facility] Comment on above: Performed By: #### C VDTBH #### [facility] [address] [place] [address] Dr. Grace Abdul Bilirubin [Mass/Vol] 0.2 mg/dL Normal 0.2-1.0 [facility] Comment on above: Performed By: #### C VDTBH #### [facility] [address] [place] [address] Dr. Grace Abdul Calcium [Mass/Vol] 9.3 mg/dL Normal 8.5-10.1 [facility] Comment on above: Performed By: #### C VDTBH #### [facility] [address] [place] [address] Dr. Grace Abdul Chloride [Moles/Vol] 99 mmol/L Normal 98-107 [facility] Comment on above: Performed By: #### C VDTBH #### [facility] [address] [place] [address] Dr. Grace Abdul CO2 [Moles/Vol] 31.2 mmol/L Normal 21.0-32.0 [facility] Comment on above: Performed By: #### C VDTBH #### [facility] [address] [place] [address] Dr. Grace Abdul Creatinine [Mass/Vol] 1.22 mg/dL Critically high 0.55-1.02 [facility] Comment on above: Performed By: #### C VDTBH #### [facility] [address] [place] [address] Dr. Grace Abdul EGFR-AF SPANISH 51 mL/min/1.73m2 Critically low >=60 [facility] Comment on above: Performed By: #### C VDTBH #### [facility] [address] [address] [address] Grace Abdul EGFR-NON AF SPANISH 42 mL/min/1.73m2 Critically low >=60 [facility] Comment on above: Performed By: #### C VDTBH #### [facility] [address] [address] [address] Grace Abdul Globulin (S) [Mass/Vol] 3.3 g/dL Normal [facility] Comment on above: Performed By: #### C VDTBH #### [facility] [address] [address] [address] Grace Abdul Glucose [Mass/Vol] 115 mg/dL Critically high 74-106 [facility] Comment on above: Performed By: #### C VDTBH #### [facility] [address] [place] [address] Dr. Grace Abdul Potassium [Moles/Vol] 3.3 mmol/L Critically low 3.5-5.1 [facility] Comment on above: Performed By: #### C VDTBH #### [facility] [address] [address] [address] Grace Abdul Protein [Mass/Vol] 6.9 g/dL Normal 6.4-8.2 [facility] Comment on above: Performed By: #### C VDTBH #### [facility] [address] [address] [address] Grace Abdul Sodium [Moles/Vol] 139 mmol/L Normal 136-145 [facility] Comment on above: Performed By: #### C VDTBH #### [facility] [address] [address] [address] Grace Abdul Urea nitrogen [Mass/Vol] 23.0 mg/dL Critically high 7.0-18.0 [facility] Comment on above: Performed By: #### C VDTBH #### [facility] [address] [address] [address] Grace Abdul Urea nitrogen/Creatinine [Mass ratio] 18.9 mg/mg Normal [facility] Comment on above: Performed By: #### C VDTBH #### [facility] [address] [address] [address] Grace Abdul URINE MICROSCOPIC ONLYon BACTERIA NONE SEEN Normal NONE SEEN [facility] Comment on above: Performed By: #### GINA FELDERRO ####[facility] [facility] [address] [place] [address]Dr. Grace Abdul Bacteria identified Cx Nom (U) NOT INDICATED Normal [facility] Comment on above: Performed By: #### GINA FELDERRO ####[facility] [address] [place] [address]Dr. Grace Abdul CAST NONE SEEN Normal NONE SEEN [facility] Comment on above: Performed By: #### GINA FELDERRO ####[facility] [address] [place] [address]Dr. Grace Abdul Crystals LM Nom (Urine sed) NONE SEEN Normal NONE SEEN [facility] Comment on above: Performed By: #### GINA FELDERRO ####[facility] [address] [place], [place] [address]Dr. Grace Abdul Epithelial cells LM Ql (Urine sed) RARE Normal NONE SEEN /RARE [facility] Comment on above: Performed By: #### GINA FELDERRO ####[facility] Watq[address] [place], [place] [address]Dr. Grace Abdul MUCOUS NONE SEEN Normal NONE SEEN [facility] Comment on above: Performed By: #### GINA FELDERRO ####[facility] X[address] [place] [address]Dr. Grace Abdul RBC 0-2 Normal 0-2 [facility] Comment on above: Performed By: #### GINA FELDERRO ####[facility] [address] [place], [place] [address]Dr. Grace Abdul WBC 0-2 Abnormal NONE SEEN [facility] Comment on above: Performed By: #### GINA FELDERRO ####[facility] Tsiz[address] [place], [place] [address]Dr. Grace Abdul BNPon 12-11-2021 Natriuretic peptide B (Bld) [Mass/Vol] 665.0 pg/mL Normal <=1,800.0 [facility] Comment on above: Performed By: #### B MP #### [facility] [address] [place], [place] [address] Dr. Grace Abdul CBC AUTO DIFFon 12-11-2021 BASO # 0.0 103/ul Normal 0.0-0.1 [facility] Comment on above: Performed By: #### C BC ####[facility] [address] [place] [id number] Abdul Basophils/100 WBC (Bld) 0.5 % Normal 0.2-2.0 [facility] Comment on above: Performed By: #### C BC ####[facility] Cl[address]kt[address]ax[address] [place] [id number] Abdul EO # 0.1 103/ul Normal 0.0-0.7 [facility] Comment on above: Performed By: #### C BC ####[facility] Yssin[address] [place] [id number] Abdul Eosinophils/100 WBC (Bld) 1.9 % Normal 0.9-7.0 [facility] Comment on above: Performed By: #### C BC ####[facility] Xiaioilkjh[address] [place] [id number] Abdul Erythrocyte distribution width (RBC) [Ratio] 13.4 % Normal 11.0-15.0 [facility] Comment on above: Performed By: #### C BC ####[facility] [address]xngshm[address] [place] [id number] Abdul Hematocrit (Bld) [Volume fraction] 36.2 % Normal 36.0-48.0 [facility] Comment on above: Performed By: #### C BC ####[facility] [address]dm[address] [place] [id number] Abdul Hemoglobin (Bld) [Mass/Vol] 11.9 g/dL Critically low 12.0-16.0 [facility] Comment on above: Performed By: #### C BC ####[facility] [address] [place] [id number]. Grace Abdul IG # 0.01 10e3/ul Normal 0.00-0.03 [facility] Comment on above: Performed By: #### C BC ####[facility] Jkpftaktih[address] [place] [address]Dr. Grace Abdul IG % 0.2 % Normal 0.0-0.5 [facility] Comment on above: Performed By: #### C BC ####[facility] [address] [place] [address]Dr. Grace Abdul LYMPH # 0.5 103/ul Critically low 1.2-3.8 [facility] Comment on above: Performed By: #### C BC ####[facility] [address]vfl[address] [place], [place] [address]Dr. Grace Abdul Lymphocytes/100 WBC (Bld) 11.5 % Critically low 20.5-60.0 [facility] Comment on above: Performed By: #### C BC ####[facility] [address]uc[address]un[address] [place] [address]Dr. Grace Abdul MANUAL DIFF REQ NO Normal [facility] Comment on above: Performed By: #### C BC ####[facility] [address] [place] [address]Dr. Grace Abdul MCH (RBC) [Entitic mass] 31.6 pg Normal 26.7-34.0 [facility] Comment on above: Performed By: #### C BC ####[facility] Pw[address] [place], [place] [address]Dr. Grace Abdul MCHC (RBC) [Mass/Vol] 32.9 g/dL Normal 29.9-35.2 [facility] Comment on above: Performed By: #### C BC ####[facility] [address] [place] [address]Dr. Grace Franko MCV (RBC) [Entitic vol] 96.0 fL Normal 81.0-99.0 [facility] Comment on above: Performed By: #### C BC ####[facility] [address]fl[address] [place] [id number]. Grace Abdul MONO # 0.6 103/ul Normal 0.3-0.8 [facility] Comment on above: Performed By: #### C BC ####[facility] Qxbfbvmjsj[address] [place] [address]Dr. Grace Abdul Monocytes/100 WBC (Bld) 14.4 % Critically high 1.7-12.0 [facility] Comment on above: Performed By: #### C BC ####[facility] [address]ouphxfxuo[address] [place] [id number]. Grace Abdul NEUT # 3.0 103/ul Normal 1.4-6.5 [facility] Comment on above: Performed By: #### C BC ####[facility] Tigxnuwwtv[address] [place] [address]Dr. Grace Abdul Neutrophils/100 WBC (Bld) 71.5 % Normal 43.0-75.0 [facility] Comment on above: Performed By: #### C BC ####[facility] [address]wrpb[address]upm[address] [place] [id number]. Grace Abdul Platelet mean volume (Bld) [Entitic vol] 9.2 fL Critically low 9.5-13.5 [facility] Comment on above: Performed By: #### C BC ####[facility] Xyshiybvvf[address] [place] [id number]. Grace Abdul PLT 290 103/ul Normal 150-450 [facility] Comment on above: Performed By: #### C BC ####[facility] M[address]jjprrrt[address] [place] [id number]. Grace Abdul RBC 3.77 106/ul Critically low 4.20-5.40 [facility] Comment on above: Performed By: #### C BC ####[facility] [address]jnmhposl[address] [place] [address]Dr. Grace Abdul WBC 4.2 103/ul Normal 4.0-11.0 [facility] Comment on above: Performed By: #### C BC ####[facility] Tff[address]umm[address] [place] [phone] Abdul FREE THYROXINE INDEX T7on FTI 2.63 Normal 1.30-4.50 [facility] Comment on above: Performed By: #### B MP #### [facility] [address] [place] [address] [address] Grace Abdul T3U 35.0 % Normal 30.0-39.0 [facility] Comment on above: Performed By: #### B MP #### [facility] [address] [place] [address] [address] Grace Abdul T4 [Mass/Vol] 7.50 ug/dL Normal 4.80-13.90 [facility] Comment on above: Performed By: #### B MP #### [facility] [address] [place] [address] [address] Grace Abdul GLYCOHEMOGLOBIN A1Con 2021 ADA RECOMMENDATION SEE BELOW Normal [facility] Comment on above: Result Comment: ADA RECOMMENDED LIMIT 4.0 - 6.0 ADA THERAPEUTIC TARGET < 7.0 ACTION SUGGESTED > 7.0 Performed By: #### A 1C ####[facility] [address] [place] [address]DrLisette Abdul Glucose [Mass/Vol] 111 mg/dL Normal [facility] Comment on above: Performed By: #### A 1C ####[facility] [address]eb[address]su[address] [place] [id number] Abdul HbA1c (Bld) [Mass fraction] 5.5 % Normal 4.5-6.2 [facility] Comment on above: Performed By: #### A 1C ####[facility] [address] [place] [phone]. Grace Abdul IRONon 12-11-2021 Iron [Mass/Vol] 50.0 ug/dL Normal 50.0-170.0 [facility] Comment on above: Performed By: #### I DARIN, VITLETTY, VITB12 ####[facility] [address]sw[address]rmjd[address] [place] [phone] Abdul LIPID PROFILEon 12-11-2021 CHOL-HDL RATIO NORM SEE BELOW Normal [facility] Comment on above: Result Comment: 3.3 - 4.4 LOW RISK 4.4 - 7.1 AVERAGE RISK 7.1 - 11.0 MODERATE RISK >11.0 HIGH RISK Performed By: #### B MP #### [facility] [address] [place] [address] [address] Grace Abdul Cholesterol [Mass/Vol] 182 mg/dL Normal <=200 [facility] Comment on above: Performed By: #### B MP #### [facility] [address] [place] [address] [address] Grace Abdul Cholesterol in HDL [Mass/Vol] 60 mg/dL Normal 40-60 [facility] Comment on above: Performed By: #### B MP #### [facility] [address] [place] [address] [address] Grace Abdul Cholesterol in LDL [Mass/Vol] 101.2 mg/dL Normal [facility] Comment on above: Performed By: #### B MP #### [facility] [address] [place] [address] [address] Grace Abdul Cholesterol.total/Ch olesterol in HDL [Mass ratio] 3.0 {ratio} Normal [facility] Comment on above: Performed By: #### B MP #### [facility] [address] [place] [address] [address] Grace Abdul HDL NORMAL > or = 60 mg/dl - LO W CARDIOVASCULAR RISK <40 mg/dl - HIGH CARDIOVASCULAR RISK Normal [facility] Comment on above: Performed By: #### B MP #### [facility] [address] [place] [address] [address] Grace Abdul LDL CALC NORMAL SEE BELOW Normal [facility] Comment on above: Result Comment: <100 mg/dl OPTIMAL 100 - 129 mg/dl NEAR OR ABOVE OPTIMAL 130 - 159 mg/dl BORDERLINE HIGH 160 - 189 mg/dl HIGH >190 mg/dl VERY HIGH Performed By: #### B MP #### [facility] [address] [place] [address] [address] Grace Abdul Triglyceride [Mass/Vol] 104 mg/dL Normal <=150 [facility] Comment on above: Performed By: #### B MP #### [facility] [address] [place] [address] [address] Grace Abdul VLDL CALC 20.8 mg/dL Normal [facility] Comment on above: Performed By: #### B MP #### [facility] [address] [place] [address] [address] Grace Abdul PROF 14(COMP METB)on 12-11- 022 Albumin [Mass/Vol] 3.5 g/dL Normal 3.4-5.0 [facility] Comment on above: Performed By: #### B MP #### [facility] [address] [place] [address] Dr. Grace Abdul Albumin/Globulin [Mass ratio] 1.0 {ratio} Normal [facility] Comment on above: Performed By: #### B MP #### [facility] [address] [place] [address] Dr. Grace Abdul ALP [Catalytic activity/Vol] 55 U/L Normal 46-116 [facility] Comment on above: Performed By: #### B MP #### [facility] [address] [place] [address] Dr. Grace Abdul ALT [Catalytic activity/Vol] 21 U/L Normal 14-59 [facility] Comment on above: Performed By: #### B MP #### [facility] [address] [place] [address] Dr. Grace Abdul Anion gap [Moles/Vol] 9.3 mmol/L Normal [facility] Comment on above: Performed By: #### B MP #### [facility] [address] [place] [address] [address] Grace Abdul AST [Catalytic activity/Vol] 21 U/L Normal 15-37 [facility] Comment on above: Performed By: #### B MP #### [facility] [address] [place] [address] Dr. Grace Abdul Bilirubin [Mass/Vol] 0.3 mg/dL Normal 0.2-1.0 [facility] Comment on above: Performed By: #### B MP #### [facility] [address] [place] [address] [address] Grace Abdul Calcium [Mass/Vol] 9.5 mg/dL Normal 8.5-10.1 [facility] Comment on above: Performed By: #### B MP #### [facility] [address] [place] [address] [address] Grace Abdul Chloride [Moles/Vol] 102 mmol/L Normal 98-107 [facility] Comment on above: Performed By: #### B MP #### [facility] [address] [place] [address] [address] Grace Abdul CO2 [Moles/Vol] 28.5 mmol/L Normal 21.0-32.0 [facility] Comment on above: Performed By: #### B MP #### [facility] [address] [place] [address] [address] Grace Abdul Creatinine [Mass/Vol] 1.04 mg/dL Critically high 0.55-1.02 [facility] Comment on above: Performed By: #### B MP #### [facility] [address] [place] [address] [address] Grace Abdul EGFR-AF SPANISH >60 Normal >=60 [facility] Comment on above: Performed By: #### B MP #### [facility] [address] [place] [address] [address] Grace Abdul EGFR-NON AF SPANISH 51 mL/min/1.73m2 Critically low >=60 [facility] Comment on above: Performed By: #### B MP #### [facility] [address] [place] [address] [address] Grace Abdul Globulin (S) [Mass/Vol] 3.5 g/dL Normal [facility] Comment on above: Performed By: #### B MP #### [facility] [address] [place] [address] [address] Grace Abdul Glucose [Mass/Vol] 102 mg/dL Normal 74-106 [facility] Comment on above: Performed By: #### B MP #### [facility] [address] [address] [address] Grace Abdul Potassium [Moles/Vol] 3.8 mmol/L Normal 3.5-5.1 [facility] Comment on above: Performed By: #### B MP #### [facility] [address] [place] [address] [address] Grace Abdul Protein [Mass/Vol] 7.0 g/dL Normal 6.4-8.2 [facility] Comment on above: Performed By: #### B MP #### [facility] [address] [place] [address] [address] Grace Abdul Sodium [Moles/Vol] 136 mmol/L Normal 136-145 [facility] Comment on above: Performed By: #### B MP #### [facility] [address] [place] [address] [address] Grace Abdul Urea nitrogen [Mass/Vol] 20.0 mg/dL Critically high 7.0-18.0 [facility] Comment on above: Performed By: #### B MP #### [facility] [address] [place] [address] [address] Grace Abdul Urea nitrogen/Creatinine [Mass ratio] 19.2 mg/mg Normal [facility] Comment on above: Performed By: #### B MP #### [facility] [address] [place] [address] [address] Grace Abdul TSHon 12-11-2021 TSH 0.247 uIU/mL Critically low 0.358-3.740 [facility] Comment on above: Performed By: #### B MP #### [facility] [address] [place] [address] [address] Grace Abdul VITAMIN B12on 12-11-2021 Cobalamin (Vitamin B12) [Mass/Vol] 762.0 pg/mL Normal 193.0-986.0 [facility] Comment on above: Performed By: #### I DARIN, VITAD, VITB12 ####[facility] [address] [place], [place] [address]VvDr. Grace Abdul VITAMIN D 25 OHon 12-11-2021 VIT D 25-OH 54.9 ng/mL Normal [facility] Comment on above: Performed By: #### I DARIN VITAD, VITB12 ####[facility] [address] [place], [place] [address]Ze. Grace Abdul VIT D RANGES SEE BELOW Normal [facility] Comment on above: Result Comment: <20 ng/mL Vit D deficient 20 - <30 ng/mL Vit D insufficient 30 - 100 ng/mL Vit D sufficient >100 ng/mL Potential Toxicity Performed By: #### I DARIN VITAD, VITB12 ####[facility] [address] [place], [place] [address]Na. Grace Abdul MG MAMM SCREEN 3D CLEMENCIA CADon 11-25-2021 MG MAMM SCREEN 3D CLEMENCIA CAD Patient: ALEXA DELGADO Exam Date: 11/25/2021 : 1940 Gender:F Ordering : DR GALINA ROGERS . Admission #: [id number] Family : DR ELOISA MORALES Order #: [id number] CLICK HERE TO VIEW EXAM RADIOLOGY REPORT [...] Treatments None Family Cancers None LOCATION: [facility] BREAST COMPOSITION: Scattered areas fibroglandular density. [...] MD on 11/25/2021 at 14:14 Normal [facility] CULTURE URINEon 11-24-2021 CULTURE URINE Culture Observations : LIGHT GROWTH OF MIXED GENITAL ALANIS. NO POTENTIAL PATHOGENS SEEN. Normal [facility] Comment on above: Performed By: #### U RCX ####[facility] [address] [place] [address]Dr. Grace Abdul GI PANEL (PCR)on 11-24-2021 Adenovirus F 40/41 Not detected Normal NOT DETECTED [facility] Comment on above: Performed By: #### C BC #### [facility] [address] [place] [address] Dr. Grace Abdul Astrovirus Not detected Normal NOT DETECTED [facility] Comment on above: Performed By: #### C BC #### [facility] [address] [place] [address] Dr. Grace Dorman. Diff toxin A/B Not detected Normal NOT DETECTED [facility] Comment on above: Performed By: #### C BC #### [facility] [address] [place] [address] Dr. Grace Abdul Campylobacter Not detected Normal NOT DETECTED [facility] Comment on above: Performed By: #### C BC #### [facility] [address] [place] [address] Dr. Grace Abdul Cryptosporidium Not detected Normal NOT DETECTED [facility] Comment on above: Performed By: #### C BC #### [facility] [address] [place] [address] Dr. Grace Abdul Cyclos. Cayetanensis Not detected Normal NOT DETECTED [facility] Comment on above: Performed By: #### C BC #### [facility] [address] [place] [address] Dr. Grace Abdul E. Coli O157 Not Applicable Normal Not Applicable [facility] Comment on above: Performed By: #### C BC #### [facility] [address] [place] [address] Dr. Grace Abdul E. histolytica Not detected Normal NOT DETECTED [facility] Comment on above: Performed By: #### C BC #### [facility] [address] [place] [address] Dr. Grace Abdul EAEC Not detected Normal NOT DETECTED [facility] Comment on above: Performed By: #### C BC #### [facility] [address] [place] [address] Dr. Grace Abdul EIEC Not detected Normal NOT DETECTED [facility] Comment on above: Performed By: #### C BC #### [facility] [address] [place] [address] [address] Grace Abdul EPEC Not detected Normal NOT DETECTED [facility] Comment on above: Performed By: #### C BC #### [facility] [address] [place] [address] Dr. Grace Abdul ETEC Not detected Normal NOT DETECTED [facility] Comment on above: Performed By: #### C BC #### [facility] [address] [place] [address] Dr. Grace Kohli Lamblia Not detected Normal NOT DETECTED [facility] Comment on above: Performed By: #### C BC #### [facility] [address] [place] [address] Dr. Grace MCKEON CONTROLS PASSED Normal [facility] Comment on above: Performed By: #### C BC #### [facility] [address] [place] [address] Dr. Grace [place] GI PANEL BACTERIA Normal [facility] Comment on above: Performed By: #### C BC #### [facility] [address] [place] [address] Dr. Grace SANDERS ECOLI GI PANEL DIARRHEAGEN IC E.COLI / SHIGELLA Normal [facility] Comment on above: Performed By: #### C BC #### [facility] [address] [place] [address] Dr. Grace SANDERS INFO SEE BELOW Normal [facility] Comment on above: Result Comment: EAEC - Enteroaggregative E. Coli EPEC- Enteropathogenic E. Coli ETEC- Enterotoxigenic E. Coli lt/st STEC- Shigella-like toxin-producing E. Coli stx1/stx2 EIEC- Shigella/Enteroinvasive E. Coli Performed By: #### C BC #### [facility] [address] [place] [address] Dr. Grace SANDERS PARASITES GI PANEL PARASITES Normal [facility] Comment on above: Performed By: #### C BC #### [facility] [address] [place] [address] [address] Grace SANDERS VIRUS GI PANEL VIRUSES Normal [facility] Comment on above: Performed By: #### C BC #### [facility] [address] [place] [address] Dr. Grace Abdul Norovirus GI/GII Not detected Normal NOT DETECTED [facility] Comment on above: Performed By: #### C BC #### [facility] [address] [place] [address] [address] Grace Abdul P. Shigelloides Not detected Normal NOT DETECTED [facility] Comment on above: Performed By: #### C BC #### [facility] [address] [place] [address] Dr. Grace Abdul Rotavirus A Not detected Normal NOT DETECTED [facility] Comment on above: Performed By: #### C BC #### [facility] [address] [place] [address] Dr. Grace Abdul Salmonella Not detected Normal NOT DETECTED [facility] Comment on above: Performed By: #### C BC #### [facility] [address] [place] [address] Dr. Grace Abdul Sapovirus Not detected Normal NOT DETECTED [facility] Comment on above: Performed By: #### C BC #### [facility] [address] [place] [address] Dr. Grace Abdul STEC Not detected Normal NOT DETECTED [facility] Comment on above: Performed By: #### C BC #### [facility] [address] [place] [address] [address] Grace Abdul Vibrio Not detected Normal NOT DETECTED [facility] Comment on above: Performed By: #### C BC #### [facility] [address] [place] [address] Dr. Grace Abdul Vibrio Cholera Not detected Normal NOT DETECTED [facility] Comment on above: Performed By: #### C BC #### [facility] [address] [place] [address] [address] Grace Blue Enterocolitica Not detected Normal NOT DETECTED [facility] Comment on above: Performed By: #### C BC #### [facility] [address] [place] [id number] Grace Abdul UA RANDOM W/MICROSCOPICon BACTERIA NONE SEEN Normal NONE SEEN [facility] Comment on above: Performed By: #### U AMIC ####[facility] [address] [place] [address]Dr. Grace Abdul Bilirubin Ql (U) Negative Normal NEGATIVE [facility] Comment on above: Performed By: #### U AMIC ####[facility] [address] [place] [address]Dr. Grace Abdul CAST NONE SEEN Normal NONE SEEN [facility] Comment on above: Performed By: #### U AMIC ####[facility] [address] [place] [address]Dr. Grace Abdul Clarity (U) CLEAR Normal CLEAR [facility] Comment on above: Performed By: #### U AMIC ####[facility] [address] [place] [id number]. Grace Abdul Color (U) LT. YELLOW Normal YELLOW [facility] Comment on above: Performed By: #### U AMIC ####[facility] [address] [place] [id number]. Grace Abdul Crystals LM Nom (Urine sed) NONE SEEN Normal NONE SEEN [facility] Comment on above: Performed By: #### U AMIC ####[facility] [address] [place] [address]Dr. Grace Abdul Epithelial cells LM Ql (Urine sed) FEW Abnormal NONE SEEN /RARE [facility] Comment on above: Performed By: #### U AMIC ####[facility] [address] [place] [id number]. Grace Abdul Glucose Ql (U) Negative Normal NEGATIVE [facility] Comment on above: Performed By: #### U AMIC ####[facility] [address] [place] [address]Dr. Grace Abdul Hemoglobin Ql (U) TRACE-INTACT Abnormal NEGATIVE [facility] Comment on above: Performed By: #### U AMIC ####[facility] [address] [place], [place] [address]Dr. Grace Abdul Ketones Ql (U) Negative Normal NEGATIVE [facility] Comment on above: Performed By: #### U AMIC ####[facility] [address] [place], [place] [address]Dr. Grace Abdul LEUKOCYTES Negative Normal NEGATIVE [facility] Comment on above: Performed By: #### U AMIC ####[facility] [address] [place], [place] [id number]. Grace Abdul MUCOUS NONE SEEN Normal NONE SEEN [facility] Comment on above: Performed By: #### U AMIC ####[facility] [address] [place], [place] [address]Dr. Grace Abdul Nitrite Ql (U) Negative Normal NEGATIVE [facility] Comment on above: Performed By: #### U AMIC ####[facility] [address] [place], [place] [address]Dr. Grace Abdul pH (U) 7.5 [pH] Normal 5-9 [facility] Comment on above: Performed By: #### U AMIC ####[facility] [address] [place], [place] [address]Dr. Grace Abdul RBC 0-2 Normal 0-2 [facility] Comment on above: Performed By: #### U AMIC ####[facility] [address] [place], [place] [address]Dr. Grace Abdul SPEC GRAVITY 1.010 Normal 1.005-<=1.025 [facility] Comment on above: Performed By: #### U AMIC ####[facility] [address] [place], [place] [address]Dr. Grace Abdul UA PROTEIN Negative Normal NEGATIVE/ TRACE [facility] Comment on above: Performed By: #### U AMIC ####[facility] [address] [place], [place] [address]Dr. Grace Abdul Urobilinogen Qn (U) 0.2 {Ashley'U}/dL Normal 0.2 - 1. 0 [facility] Comment on above: Performed By: #### U AMIC ####[facility] [address] [place] [address]Dr. Grace Abdlu WBC NONE SEEN Normal NONE SEEN [facility] Comment on above: Performed By: #### U AMIC ####[facility] [address] [place] [id number]. Grace Abdul CBC AUTO DIFFon 11-23-2021 BASO # 0.0 103/ul Normal 0.0-0.1 [facility] Comment on above: Performed By: #### C BC #### [facility] [address] [address] [address] Grace Abdul Basophils/100 WBC (Bld) 0.4 % Normal 0.2-2.0 [facility] Comment on above: Performed By: #### C BC #### [facility] [address] [place] [address] Dr. Grace Abdul EO # 0.1 103/ul Normal 0.0-0.7 [facility] Comment on above: Performed By: #### C BC #### [facility] [address] [place] [address] Dr. Grace Abdul Eosinophils/100 WBC (Bld) 1.5 % Normal 0.9-7.0 [facility] Comment on above: Performed By: #### C BC #### [facility] [address] [address] [address] Grace Abdul Erythrocyte distribution width (RBC) [Ratio] 13.2 % Normal 11.0-15.0 [facility] Comment on above: Performed By: #### C BC #### [facility] [address] [place] [address] Dr. Grace Abdul Hematocrit (Bld) [Volume fraction] 31.9 % Critically low 36.0-48.0 [facility] Comment on above: Performed By: #### C BC #### [facility] [address] [place] [address] Dr. Grace Abdul Hemoglobin (Bld) [Mass/Vol] 10.5 g/dL Critically low 12.0-16.0 [facility] Comment on above: Performed By: #### C BC #### [facility] [address] [place] [address] Dr. Grace Abdul IG # 0.01 10e3/ul Normal 0.00-0.03 [facility] Comment on above: Performed By: #### C BC #### [facility] [address] [place] [address] Dr. Grace Abdul IG % 0.2 % Normal 0.0-0.5 [facility] Comment on above: Performed By: #### C BC #### [facility] [address] [place] [address] Dr. Grace Abdul LYMPH # 0.7 103/ul Critically low 1.2-3.8 [facility] Comment on above: Performed By: #### C BC #### [facility] [address] [place] [address] Dr. Grace Abdul Lymphocytes/100 WBC (Bld) 14.8 % Critically low 20.5-60.0 [facility] Comment on above: Performed By: #### C BC #### [facility] [address] [place] [address] Dr. Grace Abdul MANUAL DIFF REQ NO Normal [facility] Comment on above: Performed By: #### C BC #### [facility] [address] [place] [address] Dr. Grace Abdul MCH (RBC) [Entitic mass] 31.4 pg Normal 26.7-34.0 [facility] Comment on above: Performed By: #### C BC #### [facility] [address] [place] [address] Dr. Grace Abdul MCHC (RBC) [Mass/Vol] 32.9 g/dL Normal 29.9-35.2 [facility] Comment on above: Performed By: #### C BC #### [facility] [address] [place] [address] Dr. Grace Abdul MCV (RBC) [Entitic vol] 95.5 fL Normal 81.0-99.0 [facility] Comment on above: Performed By: #### C BC #### [facility] [address] [place] [address] Dr. Grace Abdul MONO # 0.6 103/ul Normal 0.3-0.8 [facility] Comment on above: Performed By: #### C BC #### [facility] [address] [place] [address] Dr. Grace Abdul Monocytes/100 WBC (Bld) 13.4 % Critically high 1.7-12.0 [facility] Comment on above: Performed By: #### C BC #### [facility] [address] [place] [address] Dr. Grace Abdul NEUT # 3.3 103/ul Normal 1.4-6.5 [facility] Comment on above: Performed By: #### C BC #### [facility] [address] [place] [address] Dr. Grace Abdul Neutrophils/100 WBC (Bld) 69.7 % Normal 43.0-75.0 [facility] Comment on above: Performed By: #### C BC #### [facility] [address] [place] [address] Dr. Grace Abdul Platelet mean volume (Bld) [Entitic vol] 9.1 fL Critically low 9.5-13.5 [facility] Comment on above: Performed By: #### C BC #### [facility] [address] [place] [address] Dr. Grace Abdul PLT 335 103/ul Normal 150-450 [facility] Comment on above: Performed By: #### C BC #### [facility] [address] [place] [address] Dr. Grace Abdul RBC 3.34 106/ul Critically low 4.20-5.40 [facility] Comment on above: Performed By: #### C BC #### [facility] [address] [place] [address] Dr. Grace Abdul WBC 4.8 103/ul Normal 4.0-11.0 [facility] Comment on above: Performed By: #### C BC #### [facility] [address] [address] [address] Grace Abdul FREE THYROXINE INDEX T7on FTI 1.15 Critically low 1.30-4.50 [facility] Comment on above: Performed By: #### T 7, CMP, TSH ####[facility] [address] [place] [address] [address]Dr. Grace Abdul T3U 31.0 % Normal 30.0-39.0 [facility] Comment on above: Performed By: #### T 7, CMP, TSH ####[facility] [address] [place] [address]DrLisette Abdul T4 [Mass/Vol] 3.70 ug/dL Critically low 4.80-13.90 [facility] Comment on above: Performed By: #### T 7, CMP, TSH ####[facility] [address] [place] [address]DrLisette Abdul IRONon 11-23-2021 Iron [Mass/Vol] 52.0 ug/dL Normal 50.0-170.0 [facility] Comment on above: Performed By: #### C VDTB #### [facility] [address] [address] [address] Grace Abdul PROF 14(COMP METB)on 022 Albumin [Mass/Vol] 3.5 g/dL Normal 3.4-5.0 [facility] Comment on above: Performed By: #### T 7, CMP, TSH ####[facility] [address] [place] [id number]. Grace Abdul Albumin/Globulin [Mass ratio] 1.1 {ratio} Normal [facility] Comment on above: Performed By: #### T 7, CMP, TSH ####[facility] [address] [place] [id number]. Grace Abdul ALP [Catalytic activity/Vol] 69 U/L Normal 46-116 [facility] Comment on above: Performed By: #### T 7, CMP, TSH ####[facility] [address] [place] [id number]. Grace Abdul ALT [Catalytic activity/Vol] 51 U/L Normal 14-59 [facility] Comment on above: Performed By: #### T 7, CMP, TSH ####[facility] [address] [place] [address]Dr. Grace Abdul Anion gap [Moles/Vol] 11.5 mmol/L Normal [facility] Comment on above: Performed By: #### T 7, CMP, TSH ####[facility] [address] [place] [address]Dr. Grace Abdul AST [Catalytic activity/Vol] 24 U/L Normal 15-37 [facility] Comment on above: Performed By: #### T 7, CMP, TSH ####[facility] [address] [place] [address]Dr. Grace Abdul Bilirubin [Mass/Vol] 0.2 mg/dL Normal 0.2-1.0 [facility] Comment on above: Performed By: #### T 7, CMP, TSH ####[facility] [address] [place] [address]Dr. Grace Abdul Calcium [Mass/Vol] 9.3 mg/dL Normal 8.5-10.1 [facility] Comment on above: Performed By: #### T 7, CMP, TSH ####[facility] [address] [place] [address]Dr. Grace Abdul Chloride [Moles/Vol] 98 mmol/L Normal 98-107 [facility] Comment on above: Performed By: #### T 7, CMP, TSH ####[facility] [address] [place] [address]Dr. Grace Abdul CO2 [Moles/Vol] 28.7 mmol/L Normal 21.0-32.0 [facility] Comment on above: Performed By: #### T 7, CMP, TSH ####[facility] [address] [place] [address]Dr. Grace Abdul Creatinine [Mass/Vol] 1.11 mg/dL Critically high 0.55-1.02 [facility] Comment on above: Performed By: #### T 7, CMP, TSH ####[facility] [address] [place] [address]Dr. Grace Abdul EGFR-AF SPANISH 57 mL/min/1.73m2 Critically low >=60 [facility] Comment on above: Performed By: #### T 7, CMP, TSH ####[facility] [address] [place] [address]Dr. Grace Abdul EGFR-NON AF SPANISH 47 mL/min/1.73m2 Critically low >=60 [facility] Comment on above: Performed By: #### T 7, CMP, TSH ####[facility] [address] [place] [address]Dr. Grace Abdul Globulin (S) [Mass/Vol] 3.3 g/dL Normal [facility] Comment on above: Performed By: #### T 7, CMP, TSH ####[facility] [address] [place] [address]Dr. Grace Abdul Glucose [Mass/Vol] 88 mg/dL Normal 74-106 [facility] Comment on above: Performed By: #### T 7, CMP, TSH ####[facility] [address] [place] [address]Dr. Grace Abdul Potassium [Moles/Vol] 4.2 mmol/L Normal 3.5-5.1 [facility] Comment on above: Performed By: #### T 7, CMP, TSH ####[facility] [address] [place] [address]Dr. Benitalee ann Abdul Protein [Mass/Vol] 6.8 g/dL Normal 6.4-8.2 [facility] Comment on above: Performed By: #### T 7, CMP, TSH ####[facility] [address] [place] [address]Dr. Benitalee ann Abdul Sodium [Moles/Vol] 134 mmol/L Critically low 136-145 [facility] Comment on above: Performed By: #### T 7, CMP, TSH ####[facility] [address] [place] [id number] Abdul Urea nitrogen [Mass/Vol] 33.0 mg/dL Critically high 7.0-18.0 [facility] Comment on above: Performed By: #### T 7, CMP, TSH ####[facility] [address] [place] [id number] Abdul Urea nitrogen/Creatinine [Mass ratio] 29.7 mg/mg Normal [facility] Comment on above: Performed By: #### T 7, CMP, TSH ####[facility] [address] [place] [id number] Abdul TSHon 11-23-2021 TSH 0.469 uIU/mL Normal 0.358-3.740 [facility] Comment on above: Performed By: #### T 7, CMP, TSH ####[facility] [address] [place] [address]DrLisette Abdul CBC AUTO DIFFon 11-17-2021 BASO # 0.0 103/ul Normal 0.0-0.1 [facility] Comment on above: Performed By: #### C VDTBH #### [facility] [address] [place] [address] Dr. Grace Abdul Basophils/100 WBC (Bld) 0.2 % Normal 0.2-2.0 [facility] Comment on above: Performed By: #### C VDTBH #### [facility] [address] [place] [address] Dr. Grace Abdul EO # 0.1 103/ul Normal 0.0-0.7 [facility] Comment on above: Performed By: #### C VDTBH #### [facility] [address] [address] [address] Grace Abdul Eosinophils/100 WBC (Bld) 0.9 % Normal 0.9-7.0 [facility] Comment on above: Performed By: #### C VDTBH #### [facility] [address] [address] [address] Grace Abdul Erythrocyte distribution width (RBC) [Ratio] 12.8 % Normal 11.0-15.0 [facility] Comment on above: Performed By: #### C VDTBH #### [facility] [address] [place] [address] Dr. Grace Abdul Hematocrit (Bld) [Volume fraction] 35.2 % Critically low 36.0-48.0 [facility] Comment on above: Performed By: #### C VDTBH #### [facility] [address] [place] [address] Dr. Grace Abdul Hemoglobin (Bld) [Mass/Vol] 12.1 g/dL Normal 12.0-16.0 [facility] Comment on above: Performed By: #### C VDTBH #### [facility] [address] [place] [address] Dr. Grace Abdul IG # 0.05 10e3/ul Critically high 0.00-0.03 [facility] Comment on above: Performed By: #### C VDTBH #### [facility] [address] [place] [address] Dr. Grace Abdul IG % 0.6 % Critically high 0.0-0.5 [facility] Comment on above: Performed By: #### C VDTBH #### [facility] [address] [place] [address] Dr. Grace Abdul LYMPH # 0.6 103/ul Critically low 1.2-3.8 [facility] Comment on above: Performed By: #### C VDTBH #### [facility] [address] [place] [address] Dr. Grace Abdul Lymphocytes/100 WBC (Bld) 7.4 % Critically low 20.5-60.0 [facility] Comment on above: Performed By: #### C VDTBH #### [facility] [address] [place] [address] Dr. Grace Abdul MANUAL DIFF REQ NO Normal [facility] Comment on above: Performed By: #### C VDTBH #### [facility] [address] [place] [address] Dr. Grace Abdul MCH (RBC) [Entitic mass] 31.5 pg Normal 26.7-34.0 [facility] Comment on above: Performed By: #### C VDTBH #### [facility] [address] [place] [address] Dr. Grace Abdul MCHC (RBC) [Mass/Vol] 34.4 g/dL Normal 29.9-35.2 [facility] Comment on above: Performed By: #### C VDTBH #### [facility] [address] [place] [address] Dr. Grace Abdul MCV (RBC) [Entitic vol] 91.7 fL Normal 81.0-99.0 [facility] Comment on above: Performed By: #### C VDTBH #### [facility] [address] [place] [address] Dr. Grace Abdul MONO # 1.0 103/ul Critically high 0.3-0.8 [facility] Comment on above: Performed By: #### C VDTBH #### [facility] [address] [place] [address] Dr. Grace Abdul Monocytes/100 WBC (Bld) 12.1 % Critically high 1.7-12.0 [facility] Comment on above: Performed By: #### C VDTBH #### [facility] [address] [place] [address] Dr. Grace Abdul NEUT # 6.3 103/ul Normal 1.4-6.5 [facility] Comment on above: Performed By: #### C VDTBH #### [facility] [address] [place] [address] Dr. Grace Abdul Neutrophils/100 WBC (Bld) 78.8 % Critically high 43.0-75.0 [facility] Comment on above: Performed By: #### C VDTBH #### [facility] [address] [place] [address] Dr. Grace Abdul Platelet mean volume (Bld) [Entitic vol] 9.1 fL Critically low 9.5-13.5 [facility] Comment on above: Performed By: #### C VDTBH #### [facility] [address] [address] [address] Grace Abdul PLT 281 103/ul Normal 150-450 [facility] Comment on above: Performed By: #### C VDTBH #### [facility] [address] [place] [address] Dr. Grace Abdul RBC 3.84 106/ul Critically low 4.20-5.40 [facility] Comment on above: Performed By: #### C VDTBH #### [facility] [address] [place] [address] Dr. Grace Abdul WBC 8.0 103/ul Normal 4.0-11.0 [facility] Comment on above: Performed By: #### C VDTBH #### [facility] [address] [place] [address] Dr. Grace Abdul MAGNESIUMon 11-17-2021 Magnesium [Mass/Vol] 1.9 mg/dL Normal 1.8-2.4 [facility] Comment on above: Performed By: #### C VDTBH #### [facility] [address] [place] [address] Dr. Grace Abdul PROF CHEM 8 (BAS METB)on Anion gap [Moles/Vol] 13.9 mmol/L Normal [facility] Comment on above: Performed By: #### C VDTBH #### [facility] [address] [place] [address] Dr. Grace Abdul Calcium [Mass/Vol] 8.7 mg/dL Normal 8.5-10.1 [facility] Comment on above: Performed By: #### C VDTBH #### [facility] [address] [place] [address] Dr. Grace Abdul Chloride [Moles/Vol] 101 mmol/L Normal 98-107 [facility] Comment on above: Performed By: #### C VDTBH #### [facility] [address] [place] [address] Dr. Grace Abdul CO2 [Moles/Vol] 24.3 mmol/L Normal 21.0-32.0 [facility] Comment on above: Performed By: #### C VDTBH #### [facility] [address] [address] [address] Grace Abdul Creatinine [Mass/Vol] 0.89 mg/dL Normal 0.55-1.02 [facility] Comment on above: Performed By: #### C VDTBH #### [facility] [address] [address] [address] Grace Abdul EGFR-AF SPANISH >60 Normal >=60 [facility] Comment on above: Performed By: #### C VDTBH #### [facility] [address] [address] [address] Grace Abdul EGFR-NON AF SPANISH >60 Normal >=60 [facility] Comment on above: Performed By: #### C VDTBH #### [facility] [address] [place] [address] Dr. Grace Abdul Glucose [Mass/Vol] 97 mg/dL Normal 74-106 [facility] Comment on above: Performed By: #### C VDTBH #### [facility] [address] [address] [address] Grace Abdul Potassium [Moles/Vol] 3.2 mmol/L Critically low 3.5-5.1 [facility] Comment on above: Performed By: #### C VDTBH #### [facility] [address] [address] [address] Grace Abdul Sodium [Moles/Vol] 136 mmol/L Normal 136-145 [facility] Comment on above: Performed By: #### C VDTBH #### [facility] [address] [address] [address] Grace Abdul Urea nitrogen [Mass/Vol] 14.0 mg/dL Normal 7.0-18.0 [facility] Comment on above: Performed By: #### C VDTBH #### [facility] [address] [address] [address] Grace Abdul Urea nitrogen/Creatinine [Mass ratio] 15.7 mg/mg Normal [facility] Comment on above: Performed By: #### C VDTBH #### [facility] [address] [address] [address] Grace Abdul CBC AUTO DIFFon 11-16-2021 BASO # 0.0 103/ul Normal 0.0-0.1 [facility] Comment on above: Performed By: #### B MP #### [facility] [address] [address] [address] Grace Abdul Basophils/100 WBC (Bld) 0.2 % Normal 0.2-2.0 [facility] Comment on above: Performed By: #### B MP #### [facility] [address] [address] [address] Grace Abdul EO # 0.0 103/ul Normal 0.0-0.7 [facility] Comment on above: Performed By: #### B MP #### [facility] [address] [place] [address] Dr. Grace Abdul Eosinophils/100 WBC (Bld) 0.5 % Critically low 0.9-7.0 [facility] Comment on above: Performed By: #### B MP #### [facility] [address] [address] [address] Grace Abdul Erythrocyte distribution width (RBC) [Ratio] 12.4 % Normal 11.0-15.0 [facility] Comment on above: Performed By: #### B MP #### [facility] [address] [address] [address] Grace Abdul Hematocrit (Bld) [Volume fraction] 33.6 % Critically low 36.0-48.0 [facility] Comment on above: Performed By: #### B MP #### [facility] [address] [address] [address] Grace Abdul Hemoglobin (Bld) [Mass/Vol] 11.8 g/dL Critically low 12.0-16.0 [facility] Comment on above: Performed By: #### B MP #### [facility] [address] [address] [address] Grace Abdul IG # 0.04 10e3/ul Critically high 0.00-0.03 [facility] Comment on above: Performed By: #### B MP #### [facility] [address] [address] [address] Grace Abdul IG % 0.7 % Critically high 0.0-0.5 [facility] Comment on above: Performed By: #### B MP #### [facility] [address] [address] [address] Grace Abdul LYMPH # 0.7 103/ul Critically low 1.2-3.8 [facility] Comment on above: Performed By: #### B MP #### [facility] [address] [place] [address] Dr. Grace Abdul Lymphocytes/100 WBC (Bld) 11.1 % Critically low 20.5-60.0 [facility] Comment on above: Performed By: #### B MP #### [facility] [address] [place] [address] Dr. Grace Abdul MANUAL DIFF REQ NO Normal [facility] Comment on above: Performed By: #### B MP #### [facility] [address] [place] [address] Dr. Grace Abdul MCH (RBC) [Entitic mass] 31.5 pg Normal 26.7-34.0 [facility] Comment on above: Performed By: #### B MP #### [facility] [address] [place] [address] Dr. Grace Abdul MCHC (RBC) [Mass/Vol] 35.1 g/dL Normal 29.9-35.2 [facility] Comment on above: Performed By: #### B MP #### [facility] [address] [place] [address] Dr. Grace Abdul MCV (RBC) [Entitic vol] 89.6 fL Normal 81.0-99.0 [facility] Comment on above: Performed By: #### B MP #### [facility] [address] [place] [address] Dr. Grace Abdul MONO # 0.9 103/ul Critically high 0.3-0.8 [facility] Comment on above: Performed By: #### B MP #### [facility] [address] [address] [address] Grace Abdul Monocytes/100 WBC (Bld) 14.0 % Critically high 1.7-12.0 [facility] Comment on above: Performed By: #### B MP #### [facility] [address] [address] [address] Grace Abdul NEUT # 4.5 103/ul Normal 1.4-6.5 [facility] Comment on above: Performed By: #### B MP #### [facility] [address] [address] [address] Grace Abdul Neutrophils/100 WBC (Bld) 73.5 % Normal 43.0-75.0 [facility] Comment on above: Performed By: #### B MP #### [facility] [address] [place] [address] Dr. Grace Abdul Platelet mean volume (Bld) [Entitic vol] 9.3 fL Critically low 9.5-13.5 [facility] Comment on above: Performed By: #### B MP #### [facility] [address] [address] [address] Grace Abdul PLT 292 103/ul Normal 150-450 [facility] Comment on above: Performed By: #### B MP #### [facility] [address] [place] [address] Dr. Grace Abdul RBC 3.75 106/ul Critically low 4.20-5.40 [facility] Comment on above: Performed By: #### B MP #### [facility] [address] [place] [address] Dr. Grace Abdul WBC 6.1 103/ul Normal 4.0-11.0 [facility] Comment on above: Performed By: #### B MP #### [facility] [address] [place] [address] Dr. Grace Abdul CULTURE URINEon 11-16-2021 CULTURE URINE Culture Observations : LIGHT GROWTH OF MIXED GENITAL ALANIS. NO POTENTIAL PATHOGENS SEEN. Normal [facility] Comment on above: Performed By: #### U RCX ####[facility] [facility] [id number] [place] [id number]. Grace Abdul ER URINE PROFILEon 2 Bilirubin Ql (U) Negative Normal NEGATIVE [facility] Comment on above: Performed By: #### C VDTBH #### [facility] [address] [place] [address] Dr. Grace Abdul Clarity (U) CLEAR Normal CLEAR [facility] Comment on above: Performed By: #### C VDTBH #### [facility] [address] [place] [address] Dr. Grace Abdul Color (U) LT. YELLOW Normal YELLOW [facility] Comment on above: Performed By: #### C VDTBH #### [facility] [address] [place] [address] Dr. Grace HIGGINS A micrscopic examination will be performed if indicated. Normal [facility] Comment on above: Performed By: #### C VDTBH #### [facility] [address] [place] [address] Dr. Grace Abdul Glucose Ql (U) Negative Normal NEGATIVE [facility] Comment on above: Performed By: #### C VDTBH #### [facility] [address] [place] [address] Dr. Grace Abdul Hemoglobin Ql (U) SMALL Abnormal NEGATIVE [facility] Comment on above: Performed By: #### C VDTBH #### [facility] [address] [place] [address] Dr. Grace Abdul Ketones Ql (U) 40 mg/dl Abnormal NEGATIVE [facility] Comment on above: Performed By: #### C VDTBH #### [facility] [address] [address] [address] Grace Abdul LEUKOCYTES SMALL Abnormal NEGATIVE [facility] Comment on above: Performed By: #### C VDTBH #### [facility] [address] [place] [address] Dr. Grace Abdul Nitrite Ql (U) Negative Normal NEGATIVE [facility] Comment on above: Performed By: #### C VDTBH #### [facility] [address] [place] [address] Dr. Grace Abdul pH (U) 7.0 [pH] Normal 5-9 [facility] Comment on above: Performed By: #### C VDTBH #### [facility] [address] [place] [address] Dr. Grace Abdul SPEC GRAVITY 1.010 Normal 1.005-<=1.025 [facility] Comment on above: Performed By: #### C VDTBH #### [facility] [address] [place] [address] Dr. Grace Abdul UA PROTEIN Negative Normal NEGATIVE/ TRACE [facility] Comment on above: Performed By: #### C VDTBH #### [facility] [address] [place] [address] Dr. Grace Abdul UR MICRO IND INDICATED Normal [facility] Comment on above: Performed By: #### C VDTBH #### [facility] [address] [place] [address] Dr. Grace Abdul Urobilinogen Qn (U) 0.2 {Ashley'U}/dL Normal 0.2 - 1. 0 [facility] Comment on above: Performed By: #### C VDTBH #### [facility] [address] [place] [address] Dr. Grace Abdul MAGNESIUMon 11-16-2021 Magnesium [Mass/Vol] 1.8 mg/dL Normal 1.8-2.4 [facility] Comment on above: Performed By: #### C VDTBH #### [facility] [address] [place] [address] Dr. Grace Abdul PROF CHEM 8 (BAS METB)on Anion gap [Moles/Vol] 12.7 mmol/L Normal [facility] Comment on above: Performed By: #### B MP #### [facility] [address] [place] [address] Dr. Grace Abdul Calcium [Mass/Vol] 8.3 mg/dL Critically low 8.5-10.1 [facility] Comment on above: Performed By: #### B MP #### [facility] [address] [address] [address] Grace Abdul CO2 [Moles/Vol] 24.4 mmol/L Normal 21.0-32.0 [facility] Comment on above: Performed By: #### B MP #### [facility] [address] [address] [address] Grace Abdul Creatinine [Mass/Vol] 1.16 mg/dL Critically high 0.55-1.02 [facility] Comment on above: Performed By: #### B MP #### [facility] [address] [address] [address] Grace Abdul EGFR-AF SPANISH 54 mL/min/1.73m2 Critically low >=60 [facility] Comment on above: Performed By: #### B MP #### [facility] [address] [address] [address] Grace Abdul EGFR-NON AF SPANISH 45 mL/min/1.73m2 Critically low >=60 [facility] Comment on above: Performed By: #### B MP #### [facility] [address] [address] [address] Grace Abdul Glucose [Mass/Vol] 116 mg/dL Critically high 74-106 [facility] Comment on above: Performed By: #### B MP #### [facility] [address] [address] [address] Grace Abdul Urea nitrogen [Mass/Vol] 20.0 mg/dL Critically high 7.0-18.0 [facility] Comment on above: Performed By: #### B MP #### [facility] [address] [address] [address] Grace Abdul Urea nitrogen/Creatinine [Mass ratio] 17.2 mg/mg Normal [facility] Comment on above: Performed By: #### B MP #### [facility] [address] [address] [address] Grace Abdul Anion gap [Moles/Vol] 10.0 mmol/L Normal [facility] Comment on above: Performed By: #### B MP #### [facility] [address] [address] [address] Grace Abdul Calcium [Mass/Vol] 8.8 mg/dL Normal 8.5-10.1 [facility] Comment on above: Performed By: #### B MP #### [facility] [address] [address] [address] Grace Abdul Chloride [Moles/Vol] 96 mmol/L Critically low 98-107 [facility] Comment on above: Performed By: #### B MP #### [facility] [address] [address] [address] Grace Abdul CO2 [Moles/Vol] 26.1 mmol/L Normal 21.0-32.0 [facility] Comment on above: Performed By: #### B MP #### [facility] [address] [address] [address] Grace Abdul Creatinine [Mass/Vol] 1.11 mg/dL Critically high 0.55-1.02 [facility] Comment on above: Performed By: #### B MP #### [facility] [address] [address] [address] Grace Abdul EGFR-AF SPANISH 57 mL/min/1.73m2 Critically low >=60 [facility] Comment on above: Performed By: #### B MP #### [facility] [address] [address] [address] Grace Abdul EGFR-NON AF SPANISH 47 mL/min/1.73m2 Critically low >=60 [facility] Comment on above: Performed By: #### B MP #### [facility] [address] [address] [address] Grace Abdul Glucose [Mass/Vol] 94 mg/dL Normal 74-106 [facility] Comment on above: Performed By: #### B MP #### [facility] [address] [address] [address] Grace Abdul Potassium [Moles/Vol] 3.1 mmol/L Critically low 3.5-5.1 [facility] Comment on above: Performed By: #### B MP #### [facility] [address] [place] [address] Dr. Grace Abdul Performed By: #### C VDTBH #### [facility] [address] [place] [address] Dr. Grace Abdul Sodium [Moles/Vol] 129 mmol/L Critically low 136-145 [facility] Comment on above: Performed By: #### B MP #### [facility] [address] [place] [address] Dr. Grace Abdul Urea nitrogen [Mass/Vol] 16.0 mg/dL Normal 7.0-18.0 [facility] Comment on above: Performed By: #### B MP #### [facility] [address] [place] [address] Dr. Grace Abdul Urea nitrogen/Creatinine [Mass ratio] 14.4 mg/mg Normal [facility] Comment on above: Performed By: #### B MP #### [facility] [address] [place] [address] Dr. Grace Abdul Anion gap [Moles/Vol] 12.6 mmol/L Normal [facility] Comment on above: Performed By: #### C VDTBH #### [facility] [address] [place] [address] Dr. Grace Abdul Calcium [Mass/Vol] 8.6 mg/dL Normal 8.5-10.1 [facility] Comment on above: Performed By: #### C VDTBH #### [facility] [address] [place] [address] Dr. Grace Abdul Chloride [Moles/Vol] 95 mmol/L Critically low 98-107 [facility] Comment on above: Performed By: #### B MP #### [facility] [address] [place] [address] Dr. Grace Abdul Performed By: #### C VDTBH #### [facility] [address] [place] [address] Dr. Grace Abdul CO2 [Moles/Vol] 22.5 mmol/L Normal 21.0-32.0 [facility] Comment on above: Performed By: #### C VDTBH #### [facility] [address] [address] [address] Grace Abdul Creatinine [Mass/Vol] 0.95 mg/dL Normal 0.55-1.02 [facility] Comment on above: Performed By: #### C VDTBH #### [facility] [address] [address] [address] Grace Abdul EGFR-AF SPANISH >60 Normal >=60 [facility] Comment on above: Performed By: #### C VDTBH #### [facility] [address] [address] [address] Grace Abdul EGFR-NON AF SPANISH 56 mL/min/1.73m2 Critically low >=60 [facility] Comment on above: Performed By: #### C VDTBH #### [facility] [address] [place] [address] Dr. Grace Abdul Glucose [Mass/Vol] 92 mg/dL Normal 74-106 [facility] Comment on above: Performed By: #### C VDTBH #### [facility] [address] [address] [address] Grace Abdul Sodium [Moles/Vol] 127 mmol/L Critically low 136-145 [facility] Comment on above: Performed By: #### C VDTBH #### [facility] [address] [place] [address] Dr. Grace Abdul Urea nitrogen [Mass/Vol] 18.0 mg/dL Normal 7.0-18.0 [facility] Comment on above: Performed By: #### C VDTBH #### [facility] [address] [address] [address] Grace Abdul Urea nitrogen/Creatinine [Mass ratio] 18.9 mg/mg Normal [facility] Comment on above: Performed By: #### C VDTBH #### [facility] [address] [address] [address] Grace Abdul URINE MICROSCOPIC ONLYon BACTERIA TRACE Abnormal NONE SEEN [facility] Comment on above: Performed By: #### C VDTBH #### [facility] [address] [place] [address] Dr. Grace Abdul Bacteria identified Cx Nom (U) INDICATED Normal [facility] Comment on above: Performed By: #### C VDTBH #### [facility] [address] [place] [address] Dr. Grace Abdul CAST NONE SEEN Normal NONE SEEN [facility] Comment on above: Performed By: #### C VDTBH #### [facility] [address] [place] [address] Dr. Grace Abdul Crystals LM Nom (Urine sed) NONE SEEN Normal NONE SEEN [facility] Comment on above: Performed By: #### C VDTBH #### [facility] [address] [place] [address] Dr. Grace Abdul Epithelial cells LM Ql (Urine sed) FEW Abnormal NONE SEEN /RARE [facility] Comment on above: Performed By: #### C VDTBH #### [facility] [address] [place] [address] Dr. Grace Abdul MUCOUS NONE SEEN Normal NONE SEEN [facility] Comment on above: Performed By: #### C VDTBH #### [facility] [address] [place] [address] Dr. Grace Abdul RBC 2-5 Abnormal 0-2 [facility] Comment on above: Performed By: #### C VDTBH #### [facility] [address] [place] [address] Dr. Grace Abdul WBC 5-10 Abnormal NONE SEEN [facility] Comment on above: Performed By: #### C VDTBH #### [facility] [address] [place] [address] Dr. Grace Abdul AMYLASEon 11-15-2021 Amylase [Catalytic activity/Vol] 94 U/L Normal 25-115 [facility] Comment on above: Performed By: #### C VDTBH #### [facility] [address] [place] [address] Dr. Grace Abdlu BNPon 11-15-2021 Natriuretic peptide B (Bld) [Mass/Vol] 357.0 pg/mL Normal <=1,800.0 [facility] Comment on above: Performed By: #### C VDTBH #### [facility] [address] [address] [address] Grace Abdul CARDIAC JOVITA ADMITon 022 CK [Catalytic activity/Vol] 66 U/L Normal 26-192 [facility] Comment on above: Performed By: #### C VDTBH #### [facility] [address] [address] [address] Grace Abdul CK.MB [Mass/Vol] 2.19 ng/mL Normal <=3.60 [facility] Comment on above: Performed By: #### C VDTBH #### [facility] [address] [place] [address] Dr. Grace Abdul HSTROP 9.5 pg/mL Normal 4.0-51.3 [facility] Comment on above: Result Comment: CUT- OFF POINTS HAVE BEEN ESTABLISHED BASED ON THE FOURTH UNIVERSAL DEFINITIONS OF MYOCARDIAL INFARCTION. THE UPPER REFERENCE LIMIT (URL) OF TROPONIN, DEFINED THE 99TH PERCENTILE OF cTnI DISTRIBUTION IN A REFERENCE POPULATION, HAS BEEN CONFIRMED THE DECISION THRESHOLD FOR TX DIAGNOSIS. Performed By: #### C VDTBH #### [facility] [address] [place] [address] Dr. Grace Abdul JOHNNA 73 ng/mL Normal 9-82 [facility] Comment on above: Performed By: #### C VDTBH #### [facility] [address] [address] [address] Grace Abdul CBC AUTO DIFFon 11-15-2021 BASO # 0.0 103/ul Normal 0.0-0.1 [facility] Comment on above: Performed By: #### B MP #### [facility] [address] [address] [address] Grace Abdul Basophils/100 WBC (Bld) 0.1 % Critically low 0.2-2.0 [facility] Comment on above: Performed By: #### B MP #### [facility] [address] [place] [address] Dr. Grace Abdul EO # 0.0 103/ul Normal 0.0-0.7 [facility] Comment on above: Performed By: #### B MP #### [facility] [address] [address] [address] Grace Abdul Eosinophils/100 WBC (Bld) 0.1 % Critically low 0.9-7.0 [facility] Comment on above: Performed By: #### B MP #### [facility] [address] [place] [address] Dr. Grace Abdul Erythrocyte distribution width (RBC) [Ratio] 11.9 % Normal 11.0-15.0 [facility] Comment on above: Performed By: #### B MP #### [facility] [address] [place] [address] Dr. Grace Abdul Hematocrit (Bld) [Volume fraction] 36.6 % Normal 36.0-48.0 [facility] Comment on above: Performed By: #### B MP #### [facility] [address] [place] [address] Dr. Grace Abdul Hemoglobin (Bld) [Mass/Vol] 13.2 g/dL Normal 12.0-16.0 [facility] Comment on above: Performed By: #### B MP #### [facility] [address] [place] [address] Dr. Grace Abdul IG # 0.05 10e3/ul Critically high 0.00-0.03 [facility] Comment on above: Performed By: #### B MP #### [facility] [address] [place] [address] Dr. Grace Abdul IG % 0.7 % Critically high 0.0-0.5 [facility] Comment on above: Performed By: #### B MP #### [facility] [address] [place] [address] Dr. Grace Abdul LYMPH # 0.7 103/ul Critically low 1.2-3.8 [facility] Comment on above: Performed By: #### B MP #### [facility] [address] [place] [address] Dr. Grace Abdul Lymphocytes/100 WBC (Bld) 9.8 % Critically low 20.5-60.0 [facility] Comment on above: Performed By: #### B MP #### [facility] [address] [place] [address] Dr. Grace Abdul MANUAL DIFF REQ NO Normal [facility] Comment on above: Performed By: #### B MP #### [facility] [address] [place] [address] Dr. Grace Adbul MCH (RBC) [Entitic mass] 31.5 pg Normal 26.7-34.0 [facility] Comment on above: Performed By: #### B MP #### [facility] [address] [place] [address] Dr. Grace Abdul MCHC (RBC) [Mass/Vol] 36.1 g/dL Critically high 29.9-35.2 [facility] Comment on above: Performed By: #### B MP #### [facility] [address] [place] [address] Dr. Grace Abdul MCV (RBC) [Entitic vol] 87.4 fL Normal 81.0-99.0 [facility] Comment on above: Performed By: #### B MP #### [facility] [address] [place] [address] Dr. Grace Abdul MONO # 0.9 103/ul Critically high 0.3-0.8 [facility] Comment on above: Performed By: #### B MP #### [facility] [address] [place] [address] Dr. Grace Abdul Monocytes/100 WBC (Bld) 12.4 % Critically high 1.7-12.0 [facility] Comment on above: Performed By: #### B MP #### [facility] [address] [place] [address] Dr. Grace Abdul NEUT # 5.8 103/ul Normal 1.4-6.5 [facility] Comment on above: Performed By: #### B MP #### [facility] [address] [place] [address] Dr. Grace Abdul Neutrophils/100 WBC (Bld) 76.9 % Critically high 43.0-75.0 [facility] Comment on above: Performed By: #### B MP #### [facility] [address] [address] [address] Grace Abdul Platelet mean volume (Bld) [Entitic vol] 9.0 fL Critically low 9.5-13.5 [facility] Comment on above: Performed By: #### B MP #### [facility] [address] [address] [address] Grace Abdul PLT 361 103/ul Normal 150-450 [facility] Comment on above: Performed By: #### B MP #### [facility] [address] [address] [address] Grace Abdul RBC 4.19 106/ul Critically low 4.20-5.40 [facility] Comment on above: Performed By: #### B MP #### [facility] [address] [address] [address] Grace Abdul WBC 7.6 103/ul Normal 4.0-11.0 [facility] Comment on above: Performed By: #### B MP #### [facility] [address] [address] [address] Grace Abdul Covid-19 PCR ([facility])on 10-23 SARS-CoV-2 (COVID-19) RNA LUISITO+probe Ql (Unsp spec) Not detected Normal NOT DETECTED [facility] Comment on above: Result Comment: When [...] for this test is supported by the [place] of [employer] and Human Service's declaration that [...] used). Performed By: #### C VDTBH #### [facility] [address] [place] [address] Dr. Grace Abdul LIPASEon 11-15-2021 Lipase [Catalytic activity/Vol] 178.0 U/L Normal 73.0-393.0 [facility] Comment on above: Performed By: #### C VDTBH #### [facility] [address] [place] [address] Dr. Grace Abdul PROF 14(COMP METB)on 022 Albumin [Mass/Vol] 4.1 g/dL Normal 3.4-5.0 [facility] Comment on above: Performed By: #### C VDTBH #### [facility] [address] [place] [address] Dr. Grace Abdul Albumin/Globulin [Mass ratio] 1.2 {ratio} Normal [facility] Comment on above: Performed By: #### C VDTBH #### [facility] [address] [place] [address] Dr. Grace Abdul ALP [Catalytic activity/Vol] 63 U/L Normal 46-116 [facility] Comment on above: Performed By: #### C VDTBH #### [facility] [address] [place] [address] Dr. Grace Abdul ALT [Catalytic activity/Vol] 29 U/L Normal 14-59 [facility] Comment on above: Performed By: #### C VDTBH #### [facility] [address] [place] [address] Dr. Grace Abdul Anion gap [Moles/Vol] 14.8 mmol/L Normal [facility] Comment on above: Performed By: #### C VDTBH #### [facility] [address] [place] [address] Dr. Grace Abdul AST [Catalytic activity/Vol] 25 U/L Normal 15-37 [facility] Comment on above: Performed By: #### C VDTBH #### [facility] [address] [address] [address] Grace Abdul Bilirubin [Mass/Vol] 0.6 mg/dL Normal 0.2-1.0 [facility] Comment on above: Performed By: #### C VDTBH #### [facility] [address] [place] [address] Dr. Grace Abdul Calcium [Mass/Vol] 9.4 mg/dL Normal 8.5-10.1 [facility] Comment on above: Performed By: #### C VDTBH #### [facility] [address] [place] [address] Dr. Grace Abdul Chloride [Moles/Vol] 83 mmol/L Critically low 98-107 [facility] Comment on above: Performed By: #### C VDTBH #### [facility] [address] [place] [address] Dr. Grace Abdul CO2 [Moles/Vol] 24.4 mmol/L Normal 21.0-32.0 [facility] Comment on above: Performed By: #### C VDTBH #### [facility] [address] [place] [address] Dr. Grace Abdul Creatinine [Mass/Vol] 1.15 mg/dL Critically high 0.55-1.02 [facility] Comment on above: Performed By: #### C VDTBH #### [facility] [address] [place] [address] Dr. Grace Abdul EGFR-AF SPANISH 55 mL/min/1.73m2 Critically low >=60 [facility] Comment on above: Performed By: #### C VDTBH #### [facility] [address] [place] [address] Dr. Grace Abdul EGFR-NON AF SPANISH 45 mL/min/1.73m2 Critically low >=60 [facility] Comment on above: Performed By: #### C VDTBH #### [facility] [address] [place] [address] Dr. Grace Abdul Globulin (S) [Mass/Vol] 3.4 g/dL Normal [facility] Comment on above: Performed By: #### C VDTBH #### [facility] [address] [address] [address] Grace Abdul Glucose [Mass/Vol] 147 mg/dL Critically high 74-106 [facility] Comment on above: Performed By: #### C VDTBH #### [facility] [address] [address] [address] Grace Abdul Potassium [Moles/Vol] 3.2 mmol/L Critically low 3.5-5.1 [facility] Comment on above: Performed By: #### C VDTBH #### [facility] [address] [address] [address] Grace Abdul Protein [Mass/Vol] 7.5 g/dL Normal 6.4-8.2 [facility] Comment on above: Performed By: #### C VDTBH #### [facility] [address] [place] [address] Dr. Grace Abdul Urea nitrogen/Creatinine [Mass ratio] 21.7 mg/mg Normal [facility] Comment on above: Performed By: #### C VDTBH #### [facility] [address] [place] [address] Dr. Grace Abdul PROF CHEM 8 (BAS METB)on Anion gap [Moles/Vol] 13.6 mmol/L Normal [facility] Comment on above: Performed By: #### C VDTBH #### [facility] [address] [place] [address] Dr. Grace Abdul Calcium [Mass/Vol] 8.8 mg/dL Normal 8.5-10.1 [facility] Comment on above: Performed By: #### C VDTBH #### [facility] [address] [place] [address] Dr. Grace Abdul Chloride [Moles/Vol] 88 mmol/L Critically low 98-107 [facility] Comment on above: Performed By: #### C VDTBH #### [facility] [address] [place] [address] Dr. Grace Abdul CO2 [Moles/Vol] 21.8 mmol/L Normal 21.0-32.0 [facility] Comment on above: Performed By: #### C VDTBH #### [facility] [address] [address] [address] Grace Abdul Creatinine [Mass/Vol] 1.11 mg/dL Critically high 0.55-1.02 [facility] Comment on above: Performed By: #### C VDTBH #### [facility] [address] [place] [address] Dr. Grace Abdul EGFR-AF SPANISH 57 mL/min/1.73m2 Critically low >=60 [facility] Comment on above: Performed By: #### C VDTBH #### [facility] [address] [place] [address] Dr. Grace Abdul EGFR-NON AF SPANISH 47 mL/min/1.73m2 Critically low >=60 [facility] Comment on above: Performed By: #### C VDTBH #### [facility] [address] [place] [address] Dr. Grace Abdul Glucose [Mass/Vol] 132 mg/dL Critically high 74-106 [facility] Comment on above: Performed By: #### C VDTBH #### [facility] [address] [place] [address] Dr. Grace Abdul Potassium [Moles/Vol] 3.4 mmol/L Critically low 3.5-5.1 [facility] Comment on above: Performed By: #### C VDTBH #### [facility] [address] [place] [address] Dr. Grace Abdul Sodium [Moles/Vol] 120 mmol/L Critically low 136-145 [facility] Comment on above: Result Comment: Test Repeated. Critical Value Verified Performed By: #### C VDTBH #### [facility] [address] [place] [address] Dr. Grace Abdul Urea nitrogen [Mass/Vol] 25.0 mg/dL Critically high 7.0-18.0 [facility] Comment on above: Performed By: #### C VDTBH #### [facility] [address] [place] [address] Dr. Grace Abdul Urea nitrogen/Creatinine [Mass ratio] 22.5 mg/mg Normal [facility] Comment on above: Performed By: #### C VDTBH #### [facility] [address] [address] [address] Grace Abdul PROTIMEon 11-15-2021 INR Coag (PPP) [Relative time] 0.94 {INR} Normal [facility] Comment on above: Performed By: #### C VDTBH #### [facility] [address] [place] [address] Dr. Grace Abdul INR GUIDELINES SEE BELOW Normal [facility] Comment on above: Result Comment: DURAN RED INR: 2.0 - 3.0 CONDITIONS NOT LISTED BELOW 2.5 - 3.5 FOR PROSTHETIC HEART VALVE REPLACEMENT 2.5 - 3.5 RECURRENT THROMBOSIS Performed By: #### C VDTBH #### [facility] [address] [place] [address] Dr. Grace Abdul PT Coag (PPP) [Time] 10.2 s Normal 9.0-11.6 [facility] Comment on above: Performed By: #### C VDTBH #### [facility] [address] [place] [address] Dr. Grace Abdul XR ABD FLAT UP_PA [...] JARET LINARES Date: 2021-11-15 13:56 Normal [facility] BNPon 11-11-2021 Natriuretic peptide B (Bld) [Mass/Vol] 546.0 pg/mL Normal <=1,800.0 [facility] Comment on above: Performed By: #### C MP, TSH, HSTROPN, BNP ####[facility] [id number] [address]Dr. Grace Abdul CBC AUTO DIFFon 11-11-2021 BASO # 0.0 103/ul Normal 0.0-0.1 [facility] Comment on above: Performed By: #### C BC #### [facility] [address] [address] [address] Grace Abdul Basophils/100 WBC (Bld) 0.3 % Normal 0.2-2.0 [facility] Comment on above: Performed By: #### C BC #### [facility] [address] [place] [address] Dr. Grace Abdul EO # 0.0 103/ul Normal 0.0-0.7 [facility] Comment on above: Performed By: #### C BC #### [facility] [address] [place] [address] Dr. Grace Abdul Eosinophils/100 WBC (Bld) 0.5 % Critically low 0.9-7.0 [facility] Comment on above: Performed By: #### C BC #### [facility] [address] [place] [address] Dr. Grace Abdul Erythrocyte distribution width (RBC) [Ratio] 12.9 % Normal 11.0-15.0 [facility] Comment on above: Performed By: #### C BC #### [facility] [address] [place] [address] Dr. Grace Abdul Hematocrit (Bld) [Volume fraction] 36.1 % Normal 36.0-48.0 [facility] Comment on above: Performed By: #### C BC #### [facility] [address] [place] [address] Dr. Grace Abdul Hemoglobin (Bld) [Mass/Vol] 12.3 g/dL Normal 12.0-16.0 [facility] Comment on above: Performed By: #### C BC #### [facility] [address] [place] [address] Dr. Grace Abdul IG # 0.01 10e3/ul Normal 0.00-0.03 [facility] Comment on above: Performed By: #### C BC #### [facility] [address] [place] [address] Dr. Grace Abdul IG % 0.3 % Normal 0.0-0.5 [facility] Comment on above: Performed By: #### C BC #### [facility] [address] [place] [address] Dr. Grace Abdul LYMPH # 0.6 103/ul Critically low 1.2-3.8 [facility] Comment on above: Performed By: #### C BC #### [facility] [address] [place] [address] Dr. Grace Abdul Lymphocytes/100 WBC (Bld) 14.8 % Critically low 20.5-60.0 [facility] Comment on above: Performed By: #### C BC #### [facility] [address] [place] [address] Dr. Grace Abdul MANUAL DIFF REQ NO Normal [facility] Comment on above: Performed By: #### C BC #### [facility] [address] [place] [address] Dr. Grace Abdul MCH (RBC) [Entitic mass] 31.5 pg Normal 26.7-34.0 [facility] Comment on above: Performed By: #### C BC #### [facility] [address] [place] [address] Dr. Grace Abdul MCHC (RBC) [Mass/Vol] 34.1 g/dL Normal 29.9-35.2 [facility] Comment on above: Performed By: #### C BC #### [facility] [address] [place] [address] Dr. Grace Abdul MCV (RBC) [Entitic vol] 92.6 fL Normal 81.0-99.0 [facility] Comment on above: Performed By: #### C BC #### [facility] [address] [place] [address] Dr. Grace Abdul MONO # 0.5 103/ul Normal 0.3-0.8 [facility] Comment on above: Performed By: #### C BC #### [facility] [address] [address] [address] Grace Abdul Monocytes/100 WBC (Bld) 13.5 % Critically high 1.7-12.0 [facility] Comment on above: Performed By: #### C BC #### [facility] [address] [address] [address] Grace Abdul NEUT # 2.7 103/ul Normal 1.4-6.5 [facility] Comment on above: Performed By: #### C BC #### [facility] [address] [address] [address] Grace Abdul Neutrophils/100 WBC (Bld) 70.6 % Normal 43.0-75.0 [facility] Comment on above: Performed By: #### C BC #### [facility] [address] [place] [address] Dr. Grace Abdul Platelet mean volume (Bld) [Entitic vol] 9.2 fL Critically low 9.5-13.5 [facility] Comment on above: Performed By: #### C BC #### [facility] [address] [place] [address] Dr. Grace Abdul PLT 279 103/ul Normal 150-450 [facility] Comment on above: Performed By: #### C BC #### [facility] [address] [address] [address] Grace Abdul RBC 3.90 106/ul Critically low 4.20-5.40 [facility] Comment on above: Performed By: #### C BC #### [facility] [address] [address] [address] Grace Abdul WBC 3.9 103/ul Critically low 4.0-11.0 [facility] Comment on above: Performed By: #### C BC #### [facility] [address] [place] [address] Dr. Grace Abdul PROF 14(COMP METB)on 022 Albumin [Mass/Vol] 3.3 g/dL Critically low 3.4-5.0 [facility] Comment on above: Performed By: #### C MP, TSH, HSTROPN, BNP #### [facility] [address] [place] [address] Dr. Grace Abdul Albumin/Globulin [Mass ratio] 1.2 {ratio} Normal [facility] Comment on above: Performed By: #### C MP, TSH, HSTROPN, BNP #### [facility] [address] [place] [address] Dr. Grace Abdul ALP [Catalytic activity/Vol] 60 U/L Normal 46-116 [facility] Comment on above: Performed By: #### C MP, TSH, HSTROPN, BNP #### [facility] [address] [place] [address] Dr. Grace Abdul ALT [Catalytic activity/Vol] 26 U/L Normal 14-59 [facility] Comment on above: Performed By: #### C MP, TSH, HSTROPN, BNP #### [facility] [address] [place] [address] Dr. Grace Abdul Anion gap [Moles/Vol] 14.8 mmol/L Normal [facility] Comment on above: Performed By: #### C MP, TSH, HSTROPN, BNP #### [facility] [address] [place] [address] Dr. Grace Abdul AST [Catalytic activity/Vol] 20 U/L Normal 15-37 [facility] Comment on above: Performed By: #### C MP, TSH, HSTROPN, BNP #### [facility] [address] [place] [address] Dr. Grace Abdul Bilirubin [Mass/Vol] 0.3 mg/dL Normal 0.2-1.0 [facility] Comment on above: Performed By: #### C MP, TSH, HSTROPN, BNP #### [facility] [address] [place] [address] Dr. Grace Abdul Calcium [Mass/Vol] 8.2 mg/dL Critically low 8.5-10.1 [facility] Comment on above: Performed By: #### C MP, TSH, HSTROPN, BNP #### [facility] [address] [address] [address] Grace Abdul Chloride [Moles/Vol] 100 mmol/L Normal 98-107 [facility] Comment on above: Performed By: #### C MP, TSH, HSTROPN, BNP #### [facility] [address] [address] [address] Grace Abdul CO2 [Moles/Vol] 23.8 mmol/L Normal 21.0-32.0 [facility] Comment on above: Performed By: #### C MP, TSH, HSTROPN, BNP #### [facility] [address] [place] [address] Dr. Grace Abdul Creatinine [Mass/Vol] 1.27 mg/dL Critically high 0.55-1.02 [facility] Comment on above: Performed By: #### C MP, TSH, HSTROPN, BNP #### [facility] [address] [place] [address] Dr. Grace Abdul EGFR-AF SPANISH 49 mL/min/1.73m2 Critically low >=60 [facility] Comment on above: Performed By: #### C MP, TSH, HSTROPN, BNP #### [facility] [address] [place] [address] Dr. Grace Abdul EGFR-NON AF SPANISH 40 mL/min/1.73m2 Critically low >=60 [facility] Comment on above: Performed By: #### C MP, TSH, HSTROPN, BNP #### [facility] [address] [place] [address] Dr. Grace Abdul Globulin (S) [Mass/Vol] 2.7 g/dL Normal [facility] Comment on above: Performed By: #### C MP, TSH, HSTROPN, BNP #### [facility] [address] [place] [address] Dr. Grace Abdul Glucose [Mass/Vol] 116 mg/dL Critically high 74-106 [facility] Comment on above: Performed By: #### C MP, TSH, HSTROPN, BNP #### [facility] [address] [place] [address] Dr. Grace Abdul Potassium [Moles/Vol] 3.6 mmol/L Normal 3.5-5.1 [facility] Comment on above: Performed By: #### C MP, TSH, HSTROPN, BNP #### [facility] [address] [place] [address] Dr. Grace Abdul Protein [Mass/Vol] 6.0 g/dL Critically low 6.4-8.2 [facility] Comment on above: Performed By: #### C MP, TSH, HSTROPN, BNP #### [facility] [address] [place] [address] Dr. Grace Abdul Sodium [Moles/Vol] 135 mmol/L Critically low 136-145 [facility] Comment on above: Performed By: #### C MP, TSH, HSTROPN, BNP #### [facility] [address] [place] [address] Dr. Grace Abdul Urea nitrogen [Mass/Vol] 25.0 mg/dL Critically high 7.0-18.0 [facility] Comment on above: Performed By: #### C MP, TSH, HSTROPN, BNP #### [facility] [address] [place] [address] Dr. Grace Abdul Urea nitrogen/Creatinine [Mass ratio] 19.7 mg/mg Normal [facility] Comment on above: Performed By: #### C MP, TSH, HSTROPN, BNP #### [facility] [address] [place] [address] Dr. Grace Abdul PROTIMEon 11-11-2021 INR Coag (PPP) [Relative time] 0.95 {INR} Normal [facility] Comment on above: Performed By: #### B MP #### [facility] [address] [place] [address] Dr. Grace Abdul INR GUIDELINES SEE BELOW Normal [facility] Comment on above: Result Comment: DURAN RED INR: 2.0 - 3.0 CONDITIONS NOT LISTED BELOW 2.5 - 3.5 FOR PROSTHETIC HEART VALVE REPLACEMENT 2.5 - 3.5 RECURRENT THROMBOSIS Performed By: #### B MP #### [facility] [address] [address] [address] Grace Adbul PT Coag (PPP) [Time] 10.3 s Normal 9.0-11.6 [facility] Comment on above: Performed By: #### B MP #### [facility] [id number] Grace Abdul PTTon 11-11-2021 aPTT Coag (Bld) [Time] 21.3 s Critically low 22.3-36.2 [facility] Comment on above: Performed By: #### B MP #### [facility] [address] [address] [address] Grace Abdul TROPONIN, HIGH SENSITIVITYon 11-11-2021 HSTROP 6.5 pg/mL Normal 4.0-51.3 [facility] Comment on above: Result Comment: CUT- OFF POINTS HAVE BEEN ESTABLISHED BASED ON THE FOURTH UNIVERSAL DEFINITIONS OF MYOCARDIAL INFARCTION. THE UPPER REFERENCE LIMIT (URL) OF TROPONIN, DEFINED THE 99TH PERCENTILE OF cTnI DISTRIBUTION IN A REFERENCE POPULATION, HAS BEEN CONFIRMED THE DECISION THRESHOLD FOR TX DIAGNOSIS. Performed By: #### C MP, TSH, HSTROPN, BNP #### [facility] [id number] Grace Abdul TSHon 11-11-2021 TSH 2.140 uIU/mL Normal 0.358-3.740 [facility] Comment on above: Performed By: #### C MP, TSH, HSTROPN, BNP ####[facility] [id number] [place], [place] [address]WnDr. Grace Abdul XR CHEST 1 Von 11-11-2021 [...] KRANTHI CONNORS Date: 2021-11-11 13:34 Normal [facility] CARDIAC JOVITA ADMITon 022 CK [Catalytic activity/Vol] 89 U/L Normal 26-192 [facility] Comment on above: Performed By: #### C VDTBH #### [facility] [address] [place] [address] Dr. Grace Abdul CK.MB [Mass/Vol] 1.92 ng/mL Normal <=3.60 [facility] Comment on above: Performed By: #### C VDTBH #### [facility] [address] [place] [address] Dr. Grace Abdul HSTROP 5.7 pg/mL Normal 4.0-51.3 [facility] Comment on above: Result Comment: CUT- OFF POINTS HAVE BEEN ESTABLISHED BASED ON THE FOURTH UNIVERSAL DEFINITIONS OF MYOCARDIAL INFARCTION. THE UPPER REFERENCE LIMIT (URL) OF TROPONIN, DEFINED THE 99TH PERCENTILE OF cTnI DISTRIBUTION IN A REFERENCE POPULATION, HAS BEEN CONFIRMED THE DECISION THRESHOLD FOR TX DIAGNOSIS. Performed By: #### C VDTBH #### [facility] [address] [place] [address] Dr. Grace Abdul JOHNNA 86 ng/mL Critically high 9-82 [facility] Comment on above: Performed By: #### C VDTBH #### [facility] [address] [address] [address] Grace Abdul CBC AUTO DIFFon 09-13-2021 BASO # 0.0 103/ul Normal 0.0-0.1 [facility] Comment on above: Performed By: #### C VDTBH #### [facility] [address] [place] [address] Dr. Grace Abdul Basophils/100 WBC (Bld) 0.5 % Normal 0.2-2.0 [facility] Comment on above: Performed By: #### C VDTBH #### [facility] [address] [place] [address] Dr. Grace Abdul EO # 0.0 103/ul Normal 0.0-0.7 [facility] Comment on above: Performed By: #### C VDTBH #### [facility] [address] [place] [address] Dr. Grace Abdul Eosinophils/100 WBC (Bld) 0.7 % Critically low 0.9-7.0 [facility] Comment on above: Performed By: #### C VDTBH #### [facility] [address] [place] [address] Dr. Grace Abdul Erythrocyte distribution width (RBC) [Ratio] 13.2 % Normal 11.0-15.0 [facility] Comment on above: Performed By: #### C VDTBH #### [facility] [address] [place] [address] Dr. Grace Abdul Hematocrit (Bld) [Volume fraction] 34.8 % Critically low 36.0-48.0 [facility] Comment on above: Performed By: #### C VDTBH #### [facility] [address] [place] [address] Dr. Grace Abdul Hemoglobin (Bld) [Mass/Vol] 11.9 g/dL Critically low 12.0-16.0 [facility] Comment on above: Performed By: #### C VDTBH #### [facility] [address] [place] [address] Dr. Grace Abdul IG # 0.01 10e3/ul Normal 0.00-0.03 [facility] Comment on above: Performed By: #### C VDTBH #### [facility] [address] [place] [address] Dr. Grace Abdul IG % 0.2 % Normal 0.0-0.5 [facility] Comment on above: Performed By: #### C VDTBH #### [facility] [address] [place] [address] Dr. Grace Abdul LYMPH # 0.6 103/ul Critically low 1.2-3.8 [facility] Comment on above: Performed By: #### C VDTBH #### [facility] [address] [place] [address] Dr. Grace Abdul Lymphocytes/100 WBC (Bld) 14.2 % Critically low 20.5-60.0 [facility] Comment on above: Performed By: #### C VDTBH #### [facility] [address] [place] [address] Dr. Grace Abdul MANUAL DIFF REQ NO Normal [facility] Comment on above: Performed By: #### C VDTBH #### [facility] [address] [place] [address] Dr. Grace Abdul MCH (RBC) [Entitic mass] 31.5 pg Normal 26.7-34.0 [facility] Comment on above: Performed By: #### C VDTBH #### [facility] [address] [place] [address] Dr. Grace Abdul MCHC (RBC) [Mass/Vol] 34.2 g/dL Normal 29.9-35.2 [facility] Comment on above: Performed By: #### C VDTBH #### [facility] [address] [place] [address] Dr. Grace Abdul MCV (RBC) [Entitic vol] 92.1 fL Normal 81.0-99.0 [facility] Comment on above: Performed By: #### C VDTBH #### [facility] [address] [place] [address] Dr. Grace Abdul MONO # 0.7 103/ul Normal 0.3-0.8 [facility] Comment on above: Performed By: #### C VDTBH #### [facility] [address] [place] [address] Dr. Grace Abdul Monocytes/100 WBC (Bld) 15.6 % Critically high 1.7-12.0 [facility] Comment on above: Performed By: #### C VDTBH #### [facility] [address] [place] [address] Dr. Grace Abdul NEUT # 3.0 103/ul Normal 1.4-6.5 [facility] Comment on above: Performed By: #### C VDTBH #### [facility] [address] [address] [address] Grace Abdul Neutrophils/100 WBC (Bld) 68.8 % Normal 43.0-75.0 [facility] Comment on above: Performed By: #### C VDTBH #### [facility] [address] [place] [address] Dr. Grace Abdul Platelet mean volume (Bld) [Entitic vol] 9.5 fL Normal 9.5-13.5 [facility] Comment on above: Performed By: #### C VDTBH #### [facility] [address] [address] [address] Grace Abdul PLT 303 103/ul Normal 150-450 [facility] Comment on above: Performed By: #### C VDTBH #### [facility] [address] [place] [address] Dr. Grace Abdul RBC 3.78 106/ul Critically low 4.20-5.40 [facility] Comment on above: Performed By: #### C VDTBH #### [facility] [address] [place] [address] Dr. Grace Abdul WBC 4.4 103/ul Normal 4.0-11.0 [facility] Comment on above: Performed By: #### C VDTBH #### [facility] [address] [place] [address] HEAD WO CONon [...] the right sphenoid sinus. Electronically authenticated by: KRANTHIRASHAWN CONNORS Date: 2021-09-13 13:24 Normal [facility] Covid-19 PCR (CVDTBH)on 08-22 SARS-CoV-2 (COVID-19) RNA LUISITO+probe Ql (Unsp spec) Not detected Normal NOT DETECTED [facility] Comment on above: Result Comment: When [...] for this test is supported by the [employer] Operator of Health and Human Service's declaration that [...] used). Performed By: #### C VDTBH #### [facility] [address] [place] [address] Dr. Grace Abdul ER URINE PROFILEon 2 Bilirubin Ql (U) Negative Normal NEGATIVE [facility] Comment on above: Performed By: #### B MP #### [facility] [address] [place] [address] Dr. Grace Abdul Clarity (U) CLEAR Normal CLEAR [facility] Comment on above: Performed By: #### B MP #### [facility] [address] [place] [address] Dr. Grace Abdul Color (U) LT. YELLOW Normal YELLOW [facility] Comment on above: Performed By: #### B MP #### [facility] [address] [place] [address] Dr. Grace Abdul ERUAHD A micrscopic examination will be performed if indicated. Normal [facility] Comment on above: Performed By: #### B MP #### [facility] [address] [place] [address] Dr. Grace Abdul Glucose Ql (U) Negative Normal NEGATIVE [facility] Comment on above: Performed By: #### B MP #### [facility] [address] [address] [address] Grace Abdul Hemoglobin Ql (U) Negative Normal NEGATIVE [facility] Comment on above: Performed By: #### B MP #### [facility] [address] [place] [address] Dr. Grace Abdul Ketones Ql (U) TRACE Abnormal NEGATIVE [facility] Comment on above: Performed By: #### B MP #### [facility] [address] [place] [address] Dr. Grace Abdul LEUKOCYTES TRACE Abnormal NEGATIVE [facility] Comment on above: Performed By: #### B MP #### [facility] [address] [place] [address] Dr. Grace Abdul Nitrite Ql (U) Negative Normal NEGATIVE [facility] Comment on above: Performed By: #### B MP #### [facility] [address] [place] [address] Dr. Grace Abdul pH (U) 8.0 [pH] Normal 5-9 [facility] Comment on above: Performed By: #### B MP #### [facility] [address] [place] [address] Dr. Grace Abdul SPEC GRAVITY 1.015 Normal 1.005-<=1.025 [facility] Comment on above: Performed By: #### B MP #### [facility] [address] [place] [address] Dr. Grace bAdul UA PROTEIN Negative Normal NEGATIVE/ TRACE [facility] Comment on above: Performed By: #### B MP #### [facility] [address] [place] [address] Dr. Grace Abdul UR MICRO IND INDICATED Normal [facility] Comment on above: Performed By: #### B MP #### [facility] [address] [place] [address] Dr. Grace Abdul Urobilinogen Qn (U) 0.2 {Ashley'U}/dL Normal 0.2 - 1. 0 [facility] Comment on above: Performed By: #### B #### [facility] [address] [place] [address] Dr. Grace Abdul PROF 14(COMP METB)on 022 Albumin [Mass/Vol] 3.8 g/dL Normal 3.4-5.0 [facility] Comment on above: Performed By: #### C VDTBH #### [facility] [address] [place] [address] Dr. Grace Abdul Albumin/Globulin [Mass ratio] 1.4 {ratio} Normal [facility] Comment on above: Performed By: #### C VDTBH #### [facility] [address] [place] [address] Dr. Grace Abdul ALP [Catalytic activity/Vol] 53 U/L Normal 46-116 [facility] Comment on above: Performed By: #### C VDTB #### [facility] [address] [place] [address] Dr. Grace Abdul ALT [Catalytic activity/Vol] 20 U/L Normal 14-59 [facility] Comment on above: Performed By: #### C VDTBH #### [facility] [address] [place] [address] Dr. Grace Abdul Anion gap [Moles/Vol] 12.0 mmol/L Normal [facility] Comment on above: Performed By: #### C VDTBH #### [facility] [address] [place] [address] Dr. Grace Abdul AST [Catalytic activity/Vol] 18 U/L Normal 15-37 [facility] Comment on above: Performed By: #### C VDTBH #### [facility] [address] [place] [address] Dr. Grace Abdul Bilirubin [Mass/Vol] 0.4 mg/dL Normal 0.2-1.0 [facility] Comment on above: Performed By: #### C VDTBH #### [facility] [address] [address] [address] Grace Abdul Calcium [Mass/Vol] 9.5 mg/dL Normal 8.5-10.1 [facility] Comment on above: Performed By: #### C VDTBH #### [facility] [address] [address] [address] Grace Abdul Chloride [Moles/Vol] 99 mmol/L Normal 98-107 [facility] Comment on above: Performed By: #### C VDTBH #### [facility] [address] [address] [address] Grace Abdul CO2 [Moles/Vol] 28.1 mmol/L Normal 21.0-32.0 [facility] Comment on above: Performed By: #### C VDTBH #### [facility] [address] [address] [address] Grace Abdul Creatinine [Mass/Vol] 1.25 mg/dL Critically high 0.55-1.02 [facility] Comment on above: Performed By: #### C VDTBH #### [facility] [address] [address] [address] Grace Abdul EGFR-AF SPANISH 50 mL/min/1.73m2 Critically low >=60 [facility] Comment on above: Performed By: #### C VDTBH #### [facility] [address] [address] [address] Grace Abdul EGFR-NON AF SPANISH 41 mL/min/1.73m2 Critically low >=60 [facility] Comment on above: Performed By: #### C VDTBH #### [facility] [address] [address] [address] Grace Abdul Globulin (S) [Mass/Vol] 2.7 g/dL Normal [facility] Comment on above: Performed By: #### C VDTBH #### [facility] [address] [place] [address] Dr. Grace Abdul Glucose [Mass/Vol] 131 mg/dL Critically high 74-106 [facility] Comment on above: Performed By: #### C VDTBH #### [facility] [address] [place] [address] Dr. Grace Abdul Potassium [Moles/Vol] 4.1 mmol/L Normal 3.5-5.1 [facility] Comment on above: Performed By: #### C VDTBH #### [facility] [address] [place] [address] Dr. Grace Abdul Protein [Mass/Vol] 6.5 g/dL Normal 6.4-8.2 [facility] Comment on above: Performed By: #### C VDTBH #### [facility] [address] [place] [address] Dr. Grace Abdul Sodium [Moles/Vol] 135 mmol/L Critically low 136-145 [facility] Comment on above: Performed By: #### C VDTBH #### [facility] [address] [place] [address] Dr. Grace Abdul Urea nitrogen [Mass/Vol] 33.0 mg/dL Critically high 7.0-18.0 [facility] Comment on above: Performed By: #### C VDTBH #### [facility] [address] [place] [address] Dr. Grace Abdul Urea nitrogen/Creatinine [Mass ratio] 26.4 mg/mg Normal [facility] Comment on above: Performed By: #### C VDTBH #### [facility] [address] [place] [address] Dr. Grace Abdul URINE MICROSCOPIC ONLYon BACTERIA NONE SEEN Normal NONE SEEN [facility] Comment on above: Performed By: #### C BC #### [facility] [address] [place] [address] Dr. Grace Abdul Bacteria identified Cx Nom (U) NOT INDICATED Normal [facility] Comment on above: Performed By: #### C BC #### [facility] [address] [place] [address] Dr. Grace Abdul CAST NONE SEEN Normal NONE SEEN [facility] Comment on above: Performed By: #### C BC #### [facility] [address] [place] [address] Dr. Grace Abdul Crystals LM Nom (Urine sed) NONE SEEN Normal NONE SEEN [facility] Comment on above: Performed By: #### C BC #### [facility] [address] [place] [address] Dr. Grace Abdul Epithelial cells LM Ql (Urine sed) FEW Abnormal NONE SEEN /RARE [facility] Comment on above: Performed By: #### C BC #### [facility] [address] [place] [address] Dr. Grace Abdul MUCOUS NONE SEEN Normal NONE SEEN [facility] Comment on above: Performed By: #### C BC #### [facility] [address] [place] [address] Dr. Grace Abdul RBC 0-2 Normal 0-2 [facility] Comment on above: Performed By: #### C BC #### [facility] [address] [place] [address] Dr. Grace Abdul WBC 0-2 Abnormal NONE SEEN [facility] Comment on above: Performed By: #### C BC #### [facility] [address] [place] [address] Dr. Grace Abdul XR CHEST 1 Von [...] KRANTHI CONNORS Date: 2021-09-13 13:19 Normal [facility] CERV SP W/OBLS/FLEX/EXT 6 OR >on 12-12-2020 CERV SP W/OBLS/FLEX/EXT 6 OR > STUDY: CERV SP W/OBLS/FLEX/EXT 6 OR >; 12/12/2020 9:40 am INDICATION: NECK PAIN. COMPARISON: None. ACCESSION NUMBER(S): [id number] ORDERING CLINICIAN: Aiden Younger TECHNIQUE: AP, lateral, [...] findings. Dense left carotid artery calcifications. Normal [facility] Vital Signs Date Time Vital Sign Value Performing Clinician Aimee pollock 09-21-2022 12:51-0400 Diastolic blood pressure 60 mm[Hg] Carolyn Vanegas MD Work Phone: [facility] 09-21-2022 12:51-0400 Heart rate 67 /min Carolyn Vanegas MD Work Phone: [facility] 09-21-2022 12:51-0400 Systolic blood pressure 153 mm[Hg] Carolyn Vanegas MD Work Phone: [facility] 05-14-2022 14:24-0400 Diastolic blood pressure 87 mm[Hg] Marty Dozier DO Work Phone: [facility] 05-14-2022 14:24-0400 Heart rate 72 /min Marty Dozier DO Work Phone: [facility] 05-14-2022 14:24-0400 Systolic blood pressure 158 mm[Hg] Marty Dozier DO Work Phone: [facility] 05-14-2022 14:22-0400 Body height 152.4 cm Marty Dozier DO Work Phone: [facility] 05-14-2022 14:22-0400 Body weight 76.39 kg Marty Dozier DO Work Phone: [facility] 05-14-2022 14:22-0400 SaO2% (BldA) [Mass fraction] 99 % Marty Dozier DO Work Phone: [facility] Encounters Encounter Date Encounter Type Care Provider Facility Start: 09-12-2023 End: 09-12-2023 ambulatory Lyn Quiñones MD [facility]: [facility] Start: 08-18-2023 End: 08-18-2023 ambulatory Galina Rogers Facility:[facility] Start: 08-08-2023 End: 08-08-2023 ambulatory COLETTE MATOS Not Available Start: 06-06-2023 End: 06-06-2023 ambulatory Lyn Quiñones MD Facility: [facility] Start: 05-23-2023 End: 05-23-2023 ambulatory Lyn Quiñones MD Facility: [facility] Start: 01-17-2023 End: 01-17-2023 ambulatory Lyn Quiñones MD Facility: [facility] Start: 12-27-2022 End: 12-27-2022 ambulatory Lyn Quiñones MD Facility: [facility] Start: 12-20-2022 End: 12-20-2022 ambulatory Lyn Quiñones MD Facility: [facility] Start: 11-15-2022 End: 11-15-2022 ambulatory Lyn Quiñones MD Facility: [facility] Start: 09-21-2022 End: 09-21-2022 ambulatory GALINA ROGERS Facility:[facility] Start: 09-21-2022 End: 09-21-2022 Patient encounter procedure Carolyn Vanegas MD Work Phone: Neurosurgery Comment on above: Obesity, Class I, BM I 30-34.9 (Primary Dx); Spinal stenosis, lumbar region with neurogenic claudication Start: 08-19-2022 Chart abstracting None (Historical) Neurology Start: 07-22-2022 ambulatory NARENDRANATH LAKSHMIPATHY . Facility: Start: 07-16-2022 End: 07-17-[address] GALINA ROGERS . Facility:[facility] Start: 06-22-2022 End: 06-22-2022 ambulatory NARENDRANATH LAKSHMIPATHY . Facility:[facility] Start: 06-15-2022 End: 06-16-2022 ambulatory NARENDRANATH LAKSHMIPATHY . Facility:[facility] Start: 06-10-[address] GALINA ROGERS . Facili ty:[facility] Start: 06-01-2022 End: 06-01-2022 ambulatory NARENDRANATH LAKSHMIPATHY . Facility:[facility] Start: 05-14-2022 End: 05-14-2022 ambulatory MARTY DOZIER Facility:[facility] Start: 05-14-2022 End: 05-14-2022 Patient encounter [...] 09-12-2017 End: 09-13-2017 Patient encounter DEFAULT PHYSICIAN Facility:[facility] Plan of Treatment Date Care Activity Detail Author Start: 10-22-2022 Influenza vaccination INFLUENZA (#1) [facility] Start: 04-11-2022 COVID-19 VACCINE (6 - Moderna series) COVID-19 VACCINE (6 - Moderna series) [facility] Start: 02-21-2022 ADVANCE DIRECTIVE DISCUSSION ADVANCE DIRECTIVE DISCUSSION [facility] Start: 02-21-2022 DEPRESSION ASSESSMENT DEPRESSION ASS ESSMENT [facility] Start: 11-12-2017 PNEUMOCOCCAL: 65+ (2 - PPSV23 if available, else PCV20) PNEUMOCOCCAL: 65+ (2 - PPSV23 if available, else PCV20) [facility] Start: 11-12-2017 PNEUMOCOCCAL: 65+ (2 - PPSV23 or PCV20) PNEUMOCOCCAL: 65+ (2 - PPSV23 or PCV20) [facility] Start: 07-22-2017 SHINGRIX VACCINE (2 of 3) MANLEY GRIX VACCINE (2 of 3) [facility] Start: 04-30-2004 BONE DENSITY BONE DENSITY [facility] Start: 04-30-1984 DIABETES SCREEN DIABETES SCREEN [facility] Start: 04-30-1958 Urine microalbumin profile DTAP,TDAP ,TD (1 - Tdap) [facility] Immunizations Immunization Date Immunization Notes Care Provider Fa cility 12-02-2021 Influenza, injectabl e, Madin Carmina Canine Kidney, preservative free, quadrivalent Marty Dozier DO Work Phone: [facility] 11-28-2020 influenza virus vacc ine, unspecified formulation Marty Galavizis DO Work Phone: [facility] 11-29-2019 Seasonal trivalent influenza vaccine, adjuvanted, preservative free Marty Dozier DO Work Phone: [facility] 05-27-2017 zoster vaccine, live Marty Dozier DO Work Phone: [facility] 11-12-2016 pneumococcal conjuga te vaccine, 13 valent Marty Galavizis DO Work Phone: [facility] Payers Date Payer Category Payer Private Health Insurance [facility] AARP SUPPLEMENT [id number] 2022-Present [phone] [address] [place] [address] Indemnity [id number] 2004 Medicare [id number] 2004 Unknown 1959 Medicare [id number] 1959 Self-pay 1959 Unknown [id number] 1939 Unknown [id number] 2.16.840.1.463391.3.579.2 .593 1939 Unknown [id number] 2.16.840.1.417852.3.579.2 .593 1939 Unknown [id number] 2.16.840.1.825117.3.579.2 .593 1939 Unknown [id number] 2.16.840.1.379326.3.579.2 .593 1939 Unknown [id number] 2.16.840.1.840511.3.579.2 .593 1939 Unknown [id number] 2.16.840.1.088094.3.579.2 .593 1939 Unknown [id number] 2.16.840.1.923631.3.579.2 .593 1939 Unknown [id number] 2.16.840.1.565339.3.579.2 .593 1939 Unknown [id number] 2.16.840.1.868375.3.579.2 .593 1939 Unknown [id number] 2.16.840.1.855260.3.579.2 .593 1939 Unknown [id number] 2.16.840.1.826464.3.579.2 .593 1939 Unknown [id number] 2.16.840.1.024034.3.579.2 .593 1939 Unknown [id number] 2.16.840.1.074607.3.579.2 .593 1939 Unknown [id number] 2.16.840.1.876807.3.579.2 .593 1939 Unknown [id number] 2.16.840.1.951322.3.579.2 .593 1939 Unknown [id number] 2.16.840.1.620396.3.579.2 .593 1939 Unknown [id number] 2.16.840.1.744969.3.579.2 .593 1939 Unknown [id number] 2.16.840.1.502231.3.579.2 .593 1939 Unknown [id number] 2.16.840.1.862938.3.579.2 .593 1939 Unknown [id number] 2.16.840.1.029452.3.579.2 .593 1939 Unknown [id number] 2.16.840.1.570187.3.579.2 .593 1939 Unknown [id number] 2.16.840.1.015489.3.579.2 .593 1939 Unknown [id number] 2.16.840.1.836208.3.579.2 .593 1939 Unknown [id number] 2.16.840.1.170579.3.579.2 .593 1939 Unknown [id number] 2.16.840.1.846955.3.579.2 .593 1939 Unknown [id number] 2.16.840.1.561491.3.579.2 .1259 1939 Unknown [id number] 2.16.840.1.543813.3.579.2 .1259 1939 Unknown [id number] 2.16.840.1.168688.3.579.2 .196 1939 Unknown [id number] 2.16.840.1.448872.3.579.2 .196 1939 Unknown [id number] 2.16.840.1.899180.3.579.2 .196 1939 Unknown [id number] 2.16.840.1.379561.3.579.2 .196 1939 Unknown [id number] 2.16.840.1.359093.3.579.2 .196 1939 Unknown [id number] 2.16.840.1.286163.3.579.2 .196 1939 Unknown [id number] 2.16.840.1.760375.3.579.2 .196 Social History Date Type Detail Facility Start: 05-14-2022 Tobacco smoking stat us NHIS Never smoked tobacco [facility] Start: 05-14-2022 Tobacco use and exposure Smoke less tobacco non-user [facility] Start: 05-14-2022 End: 09-21-2022 Alcohol intake Lifetime non-drinker (finding) [facility] Start: 1940 Sex Assigned At Not on file C [facility] Start: 05-09-2022 End: 09-21-2022 History of Social function [facility] Start: 05-09-2022 End: 09-21-2022 Tobacco use panel [facility] Adult Depression Scr eening Assessment 2 [facility] Clinical Notes 09-30-2021 to 09-21-2022 Patient InstructionsCarolyn Vanegas MD - 09/21/2022 12:43 PM Naa Alves PA-C - 08/26/2022 11:45 AM EDTTerrance Troy Bowman - 08/19/2022 4:06 PM EDT Note Date & Type Note Facility 09-21-2022 Note HNO ID: [id number] Author: Carolyn Vanegas MD Service: ? Author [...] Health Percentile 1 (more content not included)... [facility] 09-21-2022 Instructions Carolyn Vanegas MD - [...] pain program and they will consider. Alexa Wright Danny is not a candidate for surgery at this time. documented in this encounter [facility] 09-21-2022 History of Present illness [...] 4 - Moderate documented in this encounter [facility] 08-26-2022 Note HNO ID: [id number] Author: Kassandra Alves PA-C Service: ? Author Type: Physician Tape Cutting Machine Operator Type: Progress Notes Filed: 08/26/2022 11:52 AM Note Text: Per Triage: Alexa Delgado is a 82 year old female that requests evaluation of spine. Per review, they have symptoms of lower back pain. Numbness/tingling right leg. Difficulty walking. Weakness Request: 1st available Referring provider: Galina Rogers MD Patient out of state: no 2nd opinion: no Prior spine surgery: yes 2006 [facility] Address: [address] [place], [place] [id number] CMT: PT Injections Tylenol Hydrocodone Studies (Reports [...] reviewed during the appt Kassandra Alves PA-C [facility] 08-26-2022 History of Present illness Narrative Per Triage: Alexa Delgado is a 82 year old female that requests evaluation of spine. Per review, they have symptoms of lower back pain. Numbness/tingling right leg. Difficulty walking. Weakness Request: 1st available Referring provider: Galina Rogers MD Patient out of state: no 2nd opinion: no Prior spine surgery: yes 2006 [facility] Address: [address] [place] [address] CMT: PT Injections Tylenol Hydrocodone Studies (Reports [...] the appt Kassandra Alves PA-C Patient name: Alxea Delgado Are you being referred by a Center for Spine Health Provider or Pain Management Provider at [facility]? No If answer is YES please schedule [...] facility where the MRI/CT/myelogram was completed: [facility] Address: [address] [place] [address] MRI/CT/myelogram viewable in Epic: No If not, please provide [phone] to fax in imaging reports for review. [...] physical therapy was completed PT Injection [facility] Address: [address] [place] [address] Have you tried any other kinds of [...] where the surgery was completed: 2006 [facility] Address: [address] [place] [address] Additional Comments documented in this encounter [facility] 08-19-2022 Note HNO ID: [id number] Author: Micheal Bowman Service: ? Author Type: ? Type: Progress Notes Filed: 08/26/2022 11:52 AM Note Text: Patient name: Alexa Delgado Are you being referred by a Center for Spine Health Provider or Pain Management Provider at [facility]? No If answer is YES please schedule [...] facility where the MRI/CT/myelogram was completed: [facility] Address: [address] [place] [address] MRI/CT/myelogram viewable in Epic: No If not, please provide [phone] to fax in imaging reports for review. [...] physical therapy was completed PT Injection [facility] Address: [address], [place] [address] Have you tried any other kinds of [...] of where the surgery was completed: 2006 [facility] Address: [address] [place] [address] Additional Comments [facility] 07-16-2022 Note PROCEDURE: XR HIP RT [...] authenticated by: HERMES MENDOZA Date: 2022-07-16 11:28 [facility] 05-14-2022 Note HNO ID: [id number] Author: Marty Dozier, DO Service: ? Author Type: Physician Type: Progress Notes Filed: 05/15/2022 10:02 PM Note Text: [facility] [place] [facility] [place] [facility] - [facility] Spine Initial [...] Ratio: R>L low back Current Treatment: Medications Fenwick 5-325 mg BID - helps Diclofenac 75 [...] but still has pain -01/28/22 Noemi Sequeira SUPERVISOR FILTRATION: BL Lumbar erector spinae TPI (0.125% Marcaine, [...] ongoing as of 04/17/21 -03/08/21 Noemi Sequeira SUPERVISOR FILTRATION: Left rhomboid TPI (0.125% Marcaine, 40 mg Kenalog) -02/03/21 LESI - moderate relief for 4 days Prior spine surgery: -2006 L4-5 Discectomy Previously treated by: -[facility], previously Dr. Niko Beckwith who is leaving the practice and going forward treatment will be with Dr. Porsha Garcia. Last visit 05/13/22 Dr. Gacria - Patient appears to have chronic pain secondary to residual neurogenic pain involving the right lateral cutaneous branch of the iliohypogastric and myofascial dysfunction. I could not appreciate any facet loading pain clinically on examination today. She has an evaluation at the [facility] tomorrow at the Spine Center. RECOMMENDATIONS: We will see the patient back in the office after she undergoes evaluation there to discuss her treatment plan thereafter. We will see the patient back in the office in approximately four weeks' time or sooner if needed. PMH: Lumbar scoliosis Depression on Negrita (more content not included)... [facility] 05-14-2022 History of Present illness Narrative Images from the original note were not included. [facility] [place] [facility] [place] [facility] - [facility] Initial [...] Ratio: R>L low back Current Treatment: Medications Fenwick 5-325 mg BID - helps Diclofenac 75 [...] but still has pain -01/28/22 Noemi Sequeira SUPERVISOR FILTRATION: BL Lumbar erector spinae TPI (0.125% Marcaine, [...] ongoing as of 04/17/21 -03/08/21 Noemi Sequeira SUPERVISOR FILTRATION: Left rhomboid TPI (0.125% Marcaine, 40 mg Kenalog) -02/03/21 LESI - moderate relief for 4 days Prior spine surgery: -2006 L4-5 Discectomy Previously treated by: -[facility], previously Dr. Niko [...] today. She has an evaluation at the [facility] tomorrow at the Spine Center. [...] - resolved PSH: Knee surgeries, right replacement 2017, left arthroscopy See below Social Alcohol: none [...] reviewed 04/04/22 CT abd/pelvis with IV contrast, [facility], report: Abdominal wall: Old healed left pelvis fractures. Degenerative changes and scoliosis of the lumbar spine. IMPRESSION: No acute abdominal pathology. No acute inflammatory process. No obstructing urinary tract stone. No evidence for bowel obstruction. 11/15/21 XR abd, [facility], report: No acute osseous abnormality. There is moderate dextrocurvature of the lumbar spine. 05/08/2021 XR right hip/pelvis, [facility], report: Rotatory dextro scoliosis of the [...] TIME: 3:15 PM documented in this encounter [facility] 05-13-2022 Note CONSULTATION CONSULTATION DATE: [...] mg at h.s., diclofenac 75 mg b.i.d., Fenwick 5 mg b.i.d. EXAM: Notable for the [...] today. She has an evaluation at the [facility] tomorrow at the Spine Center. RECOMMENDATIONS: We will see the patient back in the office after she undergoes evaluation there to discuss her treatment plan thereafter. We will see the patient back in the office in approximately four weeks' time or sooner if needed. [facility] 04-06-2022 Note CONSULTATION CONSULTATION DATE: 04/06/2022 [...] to kidney dysfunction also. The patient takes Fenwick, however, is very controlled and limits it to the point of detriment. Education was done. The patient was instructed to take the Fenwick to a b.i.d. to t.i.d. basis. The [...] b.i.d. basis. The patient may increase the Fenwick to 5/325 t.i.d. We will schedule the [...] the procedure. CC: Galina Rogers M.D. [facility] 03-11-2022 Note CONSULTATION CONSULTATION DATE: 03/11/2022 [...] gave improvement for 24 hours. Medications include Fenwick 5/325 b.i.d., diclofenac 75 mg b.i.d., citalopram [...] back pain. PLAN: We will refill her Fenwick 5/325 b.i.d. We will prescribe her Buderer cream with gabapentin, ketorolac and prilocaine/lidocaine to be placed over her right knee. We will trial Requip 0.25 mg q.h.s. We will see the patient in the clinic in three months' time unless otherwise indicated. Patient agrees with the plan. [facility] 01-28-2022 Note CONSULTATION CONSULTATION DATE: 01/28/2022 [...] daily which decreases her pain. Medications include Fenwick 5/325 b.i.d., Flexeril 5 mg b.i.d., diclofenac [...] does consent to. We will refill the Fenwick 5/325 b.i.d. We will pre-authorize for a right genicular nerve block under fluoroscopy. Patient will follow up in the clinic thereafter. [facility] 01-28-2022 Note CONSULTATION PROCEDURE DATE: 01/28/2022 [...] be followed up in the office. [facility] 12-31-2021 Note CONSULTATION CONSULTATION DATE: 12/31/2021 [...] Current medications include diclofenac 75 mg b.i.d., Fenwick 5/325 b.i.d., citalopram, Flexeril and multivitamin regimen. The patient does state that she breaks her Fenwick in half and the most she takes [...] and would like to move forward. [facility] 09-30-2021 Note CONSULTATION CONSULTATION DATE: 09/30/2021 This is a very [id number] female accompanied by her returning to the [...] Current medications include diclofenac 50 mg b.i.d., Fenwick 5/325 b. i.d. and Tylenol. She does [...] at 25 mg q.h.s. Refill for her Fenwick 5/325 b.i.d. will be sent as well. The patient is to continue with her vitamin regimen which she is currently compliant with, as well as heat application and pool exercises. The patient will be followed up in the office in three months' time unless otherwise indicated. The patient agrees with the plan of care. [facility] Evaluation note Diagnosis Chronic bilateral low back pain with right-sided sciatica- Primary Back pain, lumbosacral Lumbago Chronic sacroiliac joint pain Disorders of sacrum Lumbar spondylosis Lumbosacral spondylosis without myelopathy Scoliosis of lumbar spine, unspecified scoliosis type [facility] Spinal stenosis, lumbar region with neurogenic claudication- Primary Spondylolisthesis, lumbar region Other idiopathic scoliosis, lumbar region [facility] Diagnosis Obesity, Class I, BMI 30-34.9- Primary Obesity, unspecified Spinal stenosis, lumbar region with neurogenic claudication documented in this encounter [facility] Summary Purpose Family History No [...] By Jimmy bang Referred To Contact [facility] [place] Diagnoses Spinal stenosis, lumbar region with neurogenic claudication Procedures CONSULT TO [facility] (CHRONIC PAIN) OFFICE/OUTPATIENT NEW HIGH MDM 60-74 MINUTES Carolyn Vanegas MD [address] [place] [address] Referral ID Status Reason Start Date Expiration Date Visits Requested Visits Authorized [id number] Pending Review PCP Requested Referral 09/21/2022 09/21/2023 1 1 Additional Source Comments INFORMATION SOURCE (unrecogn ized section and content) DATE CREATED AUTHOR 09/13/2017 [facility] DATE CREATED AUTHOR AUTHOR'S ORGANIZ ATION 12/13/2020 [facility] DATE CREATED AUTHOR AUTHOR'S ORGANIZ ATION 07/30/2022 [facility] [facility] pital DATE CREATED AUTHOR AUTHOR'S ORGANIZ ATION 09/22/2022 [facility] DATE CREATED AUTHOR AUTHOR'S ORGANIZ ATION 08/13/2023 [facility] dical [facility] EPIC DATE CREATED AUTHOR AUTHOR'S ORGANIZ ATION 08/25/2023 [facility] DATE CREATED AUTHOR AUTHOR'S ORGANIZ ATION 09/17/2023 [facility] Source Comments (unrecognize d section and content) In the event this informatio n is protected by the Federal Confidentiality of Alcohol and Drug Abuse Patient Records regulations: The Federal rules restrict any use of the information to criminally investigate or prosecute any alcohol or drug abuse patient.[facility] the event this information is protected by the Federal Confidentiality of Alcohol and Drug Abuse Patient Records regulations: The Federal rules restrict any use of the information to criminally investigate or prosecute any alcohol or drug abuse patient.[facility] the event this information is protected by the Federal Confidentiality of Alcohol and Drug Abuse Patient Records regulations: The Federal rules restrict any use of the information to criminally investigate or prosecute any alcohol or drug abuse patient.[facility] Reason for Visit (unrecogniz ed section and content) Reason Comments New Patient Evaluation Low Back Pain Reason Comments New Patient Care Teams (unrecognized sec tion and content) Devops Consultant Relationship Specialty Start Date End Date Galina Rogers MD [address] [place] [address] PCP - General Family Medicine 05/14/22 Colette De Leon Jr., DO [address] [place] [address] Referring Orthopedics 05/03/22 Porsha Garcia [address] [phone] Pain Management 05/14/22 Colette De Leon Jr., DO [address] [place] [address] Orthopedics 05/14/22 Devops Consultant Relationship Specialty Start Date End Date Galina Rogers MD [address] [place] [address] PCP - General Family Medicine 05/14/22 Colette De Leon Jr., DO [address] [place] [address] Referring Orthopedics 05/03/22 Porsha Garcia [address] [phone] Pain Management 05/14/22 Colette De Leon Jr., DO [address] [place] [address] Orthopedics 05/14/22 Galina Rogers MD [address] [facility] [place] [address] Referring Family Medicine 08/11/22 Devops Consultant Relationship Specialty Start Date End Date Galina Rogers MD [address] [place] [address] PCP - General Family Medicine 05/14/22 Colette De Leon Jr., DO [address] [facility] [address] [place] [address] Referring Orthopedics 05/03/22 Porsha Garcia [address] [place] [address] [place] [phone] Pain Management 05/14/22 Colette De Leon Jr., DO [address] [place] [address] Orthopedics 05/14/22 Galina Rogers MD [address] [place] [address] Referring Family Medicine 08/11/22 FOR RECORDS PERTAINING [...] BE BASED ON THE PRIMARY CLINICAL RECORDS. [facility] [employer] [facility]. provides no warranty or guarantee of the accuracy or completeness of information in this document.
== END 2023-10-06 14:25 | disposition home or self-care (01) ==
PROVIDERS: PCP Family Medicine; Visit Provider Nurse Practitioner
DX: M79.10 Myalgia, unspecified site (principal); M48.062 Spinal stenosis, lumbar region with neurogenic claudication; Z79.891 Long term (current) use of opiate analgesic; M46.1 Sacroiliitis, not elsewhere classified; M51.36 Other intervertebral disc degeneration, lumbar region; M25.562 Pain in left knee
CPT/HCPCS: G0463

== ENCOUNTER 2023-10-12 21:26 | Observation (INO) | payer MEDICARE, SELFPAY ==
[2023-10-12] VITALS (16 sets, daily range): BP systolic 153–183; BP diastolic 69–88; PULSE 87–101; TEMP 36.6; O2SAT 96–100; BMI 30.7
--- OUTSIDE RECORDS SUMMARY | 2023-10-12 21:35 | XMS_ITS | CCD ---
Author Organization [facility] Care Team Providers Care Watershed Manager Name Role Phone PHYSICIAN, DEFAULT Unavailable Unavailable PHYSICIAN, DEFAULT Unavailable Unavailable Haley Matos DO, George Cajetan Unavailable Galina Rogers MD Primary Care Provider Lakshmipathy, Narendranath Unavailable [phone] Haley Matos DO, George Cajeaydee Unavailable ESTELA [...] Consulting Laura vailable LAKSHMIPATHY ., NARENDRANATH Admitting Luara vailable LAKSHMIPATHY ., NARENDRANATH Attending Laura vailable [...] Unavailable HOY ., DR MOJICA Consulting Unavailable [place], DR HERMES Jean Baptiste Consulting Unavailable LATANYA [...] source) Acetaminophen / HYDROcodone Drug Allergy [facility] Repository (2 sources) Codeine Drug Allergy 3 [facility] Repository (1 source) Fluconazole Drug Allergy [facility] Repository (2 sources) Penicillins Drug allergy (disorder) 3 [facility] Repository (1 source) pregabalin Drug Allergy [facility] Repository (2 sources) Propoxyphene Drug Allergy [facility] Repository (1 source) quiNINE Drug Allergy [facility] Repository Medications Completed/Discontinued Medications Medication [...] Comment on above: Take 1 tablet by [facility] twice daily as needed. aspirin 81 mg [...] above: Take by mouth twice daily. 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] Onset: 04-06-2022 Episodic Other [...] Interpretation Reference Range Facility [facility] 08-18-2023 L Specimen: [id number] Received: 08/22/23 Status: SOUT Req Num: [id number] Spec Type: Impression Subm Dr: Galina Rogers MD Tissues: PATHPER Procedures: PATHREVIEW Age/ Patient Sex Location Account Attending Physician Alexa Delgado 83/F LABELL [id number] Galina Rogers MD SPEC NUM: [id number] RECD: 08/22/23 STATUS: SOUT REQ NUM: [id number] JANET: 08/18/[address]: Galina Rogers MD ENTERED: 08/22/23-1058 [facility] DR: Annie Rivas SPEC TYPE: Impression DEPT: SHELLIE Simmons ENTERED BY: [id number] RECV BY: [id number] ORDERED: PATHREVIEW ORDERED: PATHREVIEW Pathologist Review Abnormal [...] initial report for the needed correction CPT: 73952 ---- ---- Specimen: [id number] Received: 08/22/23 Status: SOUAinsley Rejose Num: [id number] Spec Type: Impression Subm Dr: Galina Rogers MD Tissues: PATHPER Procedures: PATHREVIEW ---- Patient: Alexa Delgado [id number] (Continued) ---- Signed (signature on file) [place] Abdul MD 08/24/23918 [place] [facility] Office [facility] (NSADHC ) ALEXA DELGADO ([id number]) 1940 F Date Time Provider Department 09/21/22 1:00 PM CAROLYN VANEGAS [facility] During your visit today, we recorded [...] Percentile 2 (more content not included)... Normal [facility] XR LSPINE 2_3 VIEWSon 2022 XR [...] by: HERMES MENDOZA Date: 2022-07-16 11:34 Normal [facility] CNOVon 05-14-2022 CNOV Office Visit (SPMESH ) ALEXA DELGADO ([id number]) 1940 F Date Time Provider Department 05/14/22 2:30 PM MARTY DOZIER During your visit today, we recorded the following information about you: Pulse Blood pressure Weight Height 72/minute 158/87 76.4 kg 1.524 m Marty Dozier DO 05/15/2022 10:02 PM Signed [facility] [...] Ratio: R>L low back Current Treatment: Medications [place] 5-325 mg BID - helps Diclofenac 75 [...] but still has pain -01/28/22 Noemi Sequeira [employer]: BL Lumbar erector spinae TPI (0.125% Marcaine, [...] ongoing as of 04/17/21 -03/08/21 Noemi Sequeira [employer]: Left rhomboid TPI (0.125% Marcaine, 40 mg Kenalog) -02/03/21 LESI - moderate relief for 4 days Prior spine surgery: -2006 L4-5 Discectomy Previously treated by: -[facility], previously Dr. [...] the pat (more content not included)... Normal [facility] CULTURE URINEon 04-05-2022 CULTURE URINE Culture Observations : LIGHT GROWTH OF MIXED GENITAL ALANIS. NO POTENTIAL PATHOGENS SEEN. Normal [facility] Comment on above: Performed By: #### U RCX ####[facility] [address] [place], [place] [address]Tp. Garce Abdul UA RANDOM W/MICROSCOPICon BACTERIA NONE SEEN Normal NONE SEEN [facility] Comment on above: Performed By: #### U AMIC ####[facility] [address] [place] [address]Dr. Grace Abdul Bilirubin Ql (U) Negative Normal NEGATIVE [facility] Comment on above: Performed By: #### U AMIC ####[facility] [address] [place] [address]Dr. Grace Abdul CAST NONE SEEN Normal NONE SEEN [facility] Comment on above: Performed By: #### U AMIC ####[facility] [address] [place], [place] [address]Dr. Grace Abdul Clarity (U) CLEAR Normal CLEAR [facility] Comment on above: Performed By: #### U AMIC ####[facility] [address] [place], [place] [address]Dr. Grace Abdul Color (U) YELLOW Normal YELLOW [facility] Comment on above: Performed By: #### U AMIC ####[facility] [address] [place], [place] [address]Dr. Grace Abdul Crystals LM Nom (Urine sed) NONE SEEN Normal NONE SEEN [facility] Comment on above: Performed By: #### U AMIC ####[facility] [address] [place], [place] [address]Dr. Grace Abdul Epithelial cells LM Ql (Urine sed) RARE Normal NONE SEEN /RARE [facility] Comment on above: Performed By: #### U AMIC ####[facility] [address] [place], [place] [address]Dr. Grace Abdul Glucose Ql (U) Negative Normal NEGATIVE The [facility] Comment on above: Performed By: #### U AMIC ####[facility] [address] [place], [place] [address]Dr. Grace Abdul Hemoglobin Ql (U) MODERATE Abnormal NEGATIVE [facility] Comment on above: Performed By: #### U AMIC ####[facility] [address] [place], [place] [address]Dr. Grace Abdul Ketones Ql (U) TRACE Abnormal NEGATIVE [facility] Comment on above: Performed By: #### U AMIC ####[facility] [address] [place], [place] [address]Dr. Grace Abdul LEUKOCYTES TRACE Abnormal NEGATIVE [facility] Comment on above: Performed By: #### U AMIC ####[facility] [address] [place] [address]Dr. Grace Abdul MUCOUS NONE SEEN Normal NONE SEEN [facility] Comment on above: Performed By: #### U AMIC ####[facility] [address] [place] [address]Dr. Benitalee ann Abdul Nitrite Ql (U) Negative Normal NEGATIVE [facility] Comment on above: Performed By: #### U AMIC ####[facility] [address] [place] [address]Dr. Benitalee ann Abdul pH (U) 5.0 [pH] Normal 5-9 [facility] Comment on above: Performed By: #### U AMIC ####[facility] [address] [place] [address]Dr. Grace Abdul RBC 0-2 Normal 0-2 [facility] Comment on above: Performed By: #### U AMIC ####[facility] [address] [place], [place] [address]Dr. Grace Abdul SPEC GRAVITY 1.015 Normal 1.005-<=1.025 [facility] Comment on above: Performed By: #### U AMIC ####[facility] [address] [place] [address]Dr. Grace Abdul UA PROTEIN Negative Normal NEGATIVE/ TRACE [facility] Comment on above: Performed By: #### U AMIC ####[facility] [address] [place] [address]Dr. Benitalee ann Abdul Urobilinogen Qn (U) 0.2 {Ashley'U}/dL Normal 0.2 - 1. 0 [facility] Comment on above: Performed By: #### U AMIC ####[facility] [address] [place], [place] [address]Dr. Grace Abdul WBC 0-2 Abnormal NONE SEEN [facility] Comment on above: Performed By: #### U AMIC ####[facility] [address] [place], [place] [address]Dr. Grace Abdul CBC AUTO DIFFon 04-04-2022 BASO # 0.0 103/ul Normal 0.0-0.1 [facility] Comment on above: Performed By: #### C BC ####[facility] [address] [place] [address]Dr. Grace Abdul Basophils/100 WBC (Bld) 0.4 % Normal 0.2-2.0 [facility] Comment on above: Performed By: #### C BC ####[facility] [address] [place] [id number]. Grace Franko EO # 0.1 103/ul Normal 0.0-0.7 [facility] Comment on above: Performed By: #### C BC ####[facility] [address] [place] [address]Dr. Grace Franko Eosinophils/100 WBC (Bld) 1.3 % Normal 0.9-7.0 [facility] Comment on above: Performed By: #### C BC ####[facility] [address] [place] [address]Dr. Grace Abdul Erythrocyte distribution width (RBC) [Ratio] 13.7 % Normal 11.0-15.0 [facility] Comment on above: Performed By: #### C BC ####[facility] [address] [place] [id number]. Grace Abdul Hematocrit (Bld) [Volume fraction] 37.2 % Normal 36.0-48.0 [facility] Comment on above: Performed By: #### C BC ####[facility] [address] [place] [id number]. Grace Abdul Hemoglobin (Bld) [Mass/Vol] 12.4 g/dL Normal 12.0-16.0 [facility] Comment on above: Performed By: #### C BC ####[facility] [address] [place] [address]Dr. Grace Franko IG # 0.02 10e3/ul Normal 0.00-0.03 [facility] Comment on above: Performed By: #### C BC ####[facility] R[address] [place] [address]Dr. Grace Abdul IG % 0.4 % Normal 0.0-0.5 [facility] Comment on above: Performed By: #### C BC ####[facility] [address] [place], [place] [address]Is. Grace Abdul LYMPH # 0.8 103/ul Critically low 1.2-3.[address] [facility] Comment on above: Performed By: #### C BC ####[facility] [address] [place] [address]Dr. Grace Abdul Lymphocytes/100 WBC (Bld) 13.9 % Critically low 20.5-60.0 [facility] Comment on above: Performed By: #### C BC ####[facility] [address] [place] [address]Dr. Grace Abdul MANUAL DIFF REQ NO Normal [facility] Comment on above: Performed By: #### C BC ####[facility] D[address] [place] [address]Dr. Grace Abdul MCH (RBC) [Entitic mass] 30.5 pg Normal 26.7-34.0 [facility] Comment on above: Performed By: #### C BC ####[facility] L[address] [place] [address]Dr. Grace Abdul MCHC (RBC) [Mass/Vol] 33.3 g/dL Normal 29.9-35.2 [facility] Comment on above: Performed By: #### C BC ####[facility] R[address]ibneywc[address] [place] [id number]. Grace Abdul MCV (RBC) [Entitic vol] 91.4 fL Normal 81.0-99.0 [facility] Comment on above: Performed By: #### C BC ####[facility] In[address] [place] [address]Dr. Grace Abdul MONO # 0.7 103/ul Normal 0.3-0.8 [facility] Comment on above: Performed By: #### C BC ####[facility] [address] [place] [address]Dr. Grace Abdul Monocytes/100 WBC (Bld) 13.5 % Critically high 1.7-12.0 [facility] Comment on above: Performed By: #### C BC ####[facility] Drbaferhgx3895 [place] [address]Dr. Grace Abdul NEUT # 3.8 103/ul Normal 1.4-6.5 [facility] Comment on above: Performed By: #### C BC ####[facility] T[address]etog[address] [place] [address]Dr. Grace Abdul Neutrophils/100 WBC (Bld) 70.5 % Normal 43.0-75.0 [facility] Comment on above: Performed By: #### C BC ####[facility] [address]auspx20[address] [place] [id number]. Grace Abdul Platelet mean volume (Bld) [Entitic vol] 9.0 fL Critically low 9.5-13.5 [facility] Comment on above: Performed By: #### C BC ####[facility] R[address]jwfl[address] [place] [id number]. Grace Abdul PLT 283 103/ul Normal 150-450 [facility] Comment on above: Performed By: #### C BC ####[facility] [address]ib[address] [place] [address]Dr. Grace Abdul RBC 4.07 106/ul Critically low 4.20-5.40 [facility] Comment on above: Performed By: #### C BC ####[facility] [address] [place], [place] [address]Dr. Grace Abdul WBC 5.4 103/ul Normal 4.0-11.0 [facility] Comment on above: Performed By: #### C BC ####[facility] Jxwiaccgby[address] [place] [address]Dr. Grace Abdul CT ABD/PELV W CONon 04-04-19 [...] EMILY NAVARRETE Date: 2022-04-04 16:59 Normal [facility] ER URINE PROFILEon 3 Bilirubin Ql (U) Negative Normal NEGATIVE [facility] Comment on above: Performed By: #### ROBERT FELDER ####[facility] [address] [place], [place] [address]Zr. Grace Abdul Clarity (U) CLEAR Normal CLEAR [facility] Comment on above: Performed By: #### ROBERT FELDER ####[facility] Q[address] [place], [place] [address]NoLisette Abdul Color (U) LT. YELLOW Normal YELLOW [facility] Comment on above: Performed By: #### ROBERT FELDER ####[facility] [address] [place] [address]Dr. Grace HIGGINS A micrscopic examination will be performed if indicated. Normal [facility] Comment on above: Performed By: #### ROBERT FELDER ####[facility] Cncbiapmcy[address] [place] [address]Dr. Grace Abdul Glucose Ql (U) Negative Normal NEGATIVE [facility] Comment on above: Performed By: #### ROBERT FELDER ####[facility] Wswz[address]havh[address] [place] [address]Dr. Grace Abdul Hemoglobin Ql (U) SMALL Abnormal NEGATIVE [facility] Comment on above: Performed By: #### ROBERT FELDER ####[facility] Ngmapkckaw[address]374 [place] [address]Dr. Grace Abdul Ketones Ql (U) Negative Normal NEGATIVE [facility] Comment on above: Performed By: #### ROBERT FELDER ####[facility] S[address] [place], [place] [address]Dr. Grace Abdul LEUKOCYTES TRACE Abnormal NEGATIVE [facility] Comment on above: Performed By: #### ROBERT FELDER ####[facility] [address] [place], [place] [address]Dr. Grace Abdul Nitrite Ql (U) Negative Normal NEGATIVE [facility] Comment on above: Performed By: #### ROBERT FELDER ####[facility] [address]te[address]uhlu[address] [place] [address]Dr. Grace Abdul pH (U) 7.5 [pH] Normal 5-9 [facility] Comment on above: Performed By: #### ROBERT FELDER ####[facility] [address] [place], [place] [address]Dr. Grace Abdul SPEC GRAVITY 1.005 Normal 1.005-<=1.025 [facility] Comment on above: Performed By: #### ROBERT FELDER ####[facility] [address] [place], [place] [address]Dr. Grace Abdul UA PROTEIN Negative Normal NEGATIVE/ TRACE [facility] Comment on above: Performed By: #### ROBERT FELDER ####[facility] Edx[address]ycsuv[address] [place] [address]Dr. Grace Abdul UR MICRO IND INDICATED Normal [facility] Comment on above: Performed By: #### ROBERT FELDER ####[facility] [address] [place] [address]Dr. Grace Abdul Urobilinogen Qn (U) 0.2 {Ashley'U}/dL Normal 0.2 - 1. 0 [facility] Comment on above: Performed By: #### ROBERT FELDER ####[facility] [address] [place], [place] [address]Dr. Grace Abdul LIPASEon 04-04-2022 Lipase [Catalytic activity/Vol] 115.0 U/L Normal 73.0-393.0 [facility] Comment on above: Performed By: #### C JOETB #### [facility] [address] [place] [address] Dr. Grace Abdul PROF 14(COMP METB)on 023 Albumin [Mass/Vol] 3.6 g/dL Normal 3.4-5.0 [facility] Comment on above: Performed By: #### Lakia DIAZTBH #### [facility] [address] [place] [address] Dr. Grace Abdul Albumin/Globulin [Mass ratio] 1.1 {ratio} Normal [facility] Comment on above: Performed By: #### C VDTBH #### [facility] [address] [place] [address] Dr. Grace Abdul ALP [Catalytic activity/Vol] 74 U/L Normal 46-116 [facility] Comment on above: Performed By: #### C VDTBH #### [facility] [address] [place] [address] Dr. Grace Abdul ALT [Catalytic activity/Vol] 23 U/L Normal 14-59 [facility] Comment on above: Performed By: #### C VDTBH #### [facility] [address] [place] [address] [address] Grace Abdul Anion gap [Moles/Vol] 12.1 mmol/L Normal [facility] Comment on above: Performed By: #### C VDTBH #### [facility] [address] [address] [address] Grace Abdul AST [Catalytic activity/Vol] 21 U/L Normal 15-37 [facility] Comment on above: Performed By: #### C VDTBH #### [facility] [address] [address] [address] Grace Abdul Bilirubin [Mass/Vol] 0.2 mg/dL Normal 0.2-1.0 [facility] Comment on above: Performed By: #### C VDTBH #### [facility] [address] [place] [address] Dr. Grace Abdul Calcium [Mass/Vol] 9.3 mg/dL Normal 8.5-10.1 [facility] Comment on above: Performed By: #### C VDTBH #### [facility] [address] [place] [address] Dr. Grace Abdul Chloride [Moles/Vol] 99 mmol/L Normal 98-107 [facility] Comment on above: Performed By: #### C VDTBH #### [facility] [address] [place] [address] Dr. Grace Abdul CO2 [Moles/Vol] 31.2 mmol/L Normal 21.0-32.0 [facility] Comment on above: Performed By: #### C VDTBH #### [facility] [address] [place] [address] Dr. Grace Abdul Creatinine [Mass/Vol] 1.22 mg/dL Critically high 0.55-1.02 [facility] Comment on above: Performed By: #### C VDTBH #### [facility] [address] [place] [address] [address] Grace Abdul EGFR-AF CROATIAN 51 mL/min/1.73m2 Critically low >=60 [facility] Comment on above: Performed By: #### C VDTBH #### [facility] [address] [place] [address] [address] Grace Abdul EGFR-NON AF CROATIAN 42 mL/min/1.73m2 Critically low >=60 [facility] Comment on above: Performed By: #### C VDTBH #### [facility] [address] [place] [address] [address] Grace Abdul Globulin (S) [Mass/Vol] 3.3 g/dL Normal [facility] Comment on above: Performed By: #### C VDTBH #### [facility] [address] [place] [address] [address] Grace Abdul Glucose [Mass/Vol] 115 mg/dL Critically high 74-106 [facility] Comment on above: Performed By: #### C VDTBH #### [facility] [address] [place] [address] Dr. Grace Abdul Potassium [Moles/Vol] 3.3 mmol/L Critically low 3.5-5.1 [facility] Comment on above: Performed By: #### C VDTBH #### [facility] [address] [place] [address] [address] Grace Abdul Protein [Mass/Vol] 6.9 g/dL Normal 6.4-8.2 [facility] Comment on above: Performed By: #### C VDTBH #### [facility] [address] [place] [address] [address] Grace Abdul Sodium [Moles/Vol] 139 mmol/L Normal 136-145 [facility] Comment on above: Performed By: #### C VDTBH #### [facility] [address] [place] [address] [address] Grace Abdul Urea nitrogen [Mass/Vol] 23.0 mg/dL Critically high 7.0-18.0 [facility] Comment on above: Performed By: #### C VDTBH #### [facility] [address] [place] [address] [address] Grace Abdul Urea nitrogen/Creatinine [Mass ratio] 18.9 mg/mg Normal [facility] Comment on above: Performed By: #### C VDTBH #### [facility] [address] [place] [address] [address] Grace Abdul URINE MICROSCOPIC ONLYon BACTERIA NONE SEEN Normal NONE SEEN [facility] Comment on above: Performed By: #### Anthony ELLISON UMICRO ####[facility] [address] [place] [address]Dr. Grace Abdul Bacteria identified Cx Nom (U) NOT INDICATED Normal [facility] Comment on above: Performed By: #### Anthony ELLISON UMICRO ####[facility] [address] [place] [address]Dr. Grace Abdul CAST NONE SEEN Normal NONE SEEN [facility] Comment on above: Performed By: #### Anthony ELLISON UMICRO ####[facility] [address] [place] [address]Dr. Grace Abdul Crystals LM Nom (Urine sed) NONE SEEN Normal NONE SEEN [facility] Comment on above: Performed By: #### Anthony LELISON UMICRO ####[facility] Center [address] [place] [address]Dr. Grace Abdul Epithelial cells LM Ql (Urine sed) RARE Normal NONE SEEN /RARE [facility] Comment on above: Performed By: #### Anthony ELLISON UMICRO ####[facility] [address] [place] [address]Dr. Grace Abdul MUCOUS NONE SEEN Normal NONE SEEN [facility] Comment on above: Performed By: #### Anthony ELLISON UMICRO ####[facility] Fraagmj[address] [place] [address]Dr. Grace Abdul RBC 0-2 Normal 0-2 [facility] Comment on above: Performed By: #### GINA FELDERRO ####[facility] Azlsesehiv[address] [place] [address]Dr. Grace Abdul WBC 0-2 Abnormal NONE SEEN [facility] Comment on above: Performed By: #### GINA FELDERRO ####[facility] [address] [place], [place] [address]DrLisette Abdul BNPon 12-11-2021 Natriuretic peptide B (Bld) [Mass/Vol] 665.0 pg/mL Normal <=1,800.0 [facility] Comment on above: Performed By: #### B MP #### [facility] Laboratory [address] [place], [place] [address] Dr. Grace Abdul CBC AUTO DIFFon 12-11-2021 BASO # 0.0 103/ul Normal 0.0-0.1 [facility] Comment on above: Performed By: #### C BC ####[facility] [address] [place] [address]DrLisette Abdul Basophils/100 WBC (Bld) 0.5 % Normal 0.2-2.0 [facility] Comment on above: Performed By: #### C BC ####[facility] [address]rypd[address]xqu[address] [place] [address]DrLisette Abdul EO # 0.1 103/ul Normal 0.0-0.7 [facility] Comment on above: Performed By: #### C BC ####[facility] [address] [place] [address]Dr. Grace Abdul Eosinophils/100 WBC (Bld) 1.9 % Normal 0.9-7.0 [facility] Comment on above: Performed By: #### C BC ####[facility] W[address]ff[address] [place] [address]DrLisette Abdul Erythrocyte distribution width (RBC) [Ratio] 13.4 % Normal 11.0-15.0 [facility] Comment on above: Performed By: #### C BC ####[facility] R[address]kev[address] [place] [address]DrLisette Abdul Hematocrit (Bld) [Volume fraction] 36.2 % Normal 36.0-48.0 [facility] Comment on above: Performed By: #### C BC ####[facility] [address] [place] [address]DrLisette Abdul Hemoglobin (Bld) [Mass/Vol] 11.9 g/dL Critically low 12.0-16.0 [facility] Comment on above: Performed By: #### C BC ####[facility] [address]osh[address] [place] [address]Dr. Grace Abdul IG # 0.01 10e3/ul Normal 0.00-0.03 [facility] Comment on above: Performed By: #### C BC ####[facility] [address]xfqm[address] [place] [address]Dr. Grace Abdul IG % 0.2 % Normal 0.0-0.5 [facility] Comment on above: Performed By: #### C BC ####[facility] [address] [place] [address]Dr. Grace Abdul LYMPH # 0.5 103/ul Critically low 1.2-3.8 [facility] Comment on above: Performed By: #### C BC ####[facility] [address]gfkxhui[address] [place] [address]DrLisette Abdul Lymphocytes/100 WBC (Bld) 11.5 % Critically low 20.5-60.0 [facility] Comment on above: Performed By: #### C BC ####[facility] [address]zlwbn[address] [place] [address]DrLisette Abdul MANUAL DIFF REQ NO Normal [facility] Comment on above: Performed By: #### C BC ####[facility] Y[address]xt[address]ml[address] [place] [address]Dr. Grace Abdul MCH (RBC) [Entitic mass] 31.6 pg Normal 26.7-34.0 [facility] Comment on above: Performed By: #### C BC ####[facility] Xtubcfclio[address] [place] [address]Dr. Grace Abdul MCHC (RBC) [Mass/Vol] 32.9 g/dL Normal 29.9-35.2 [facility] Comment on above: Performed By: #### C BC ####[facility] [address] [place] [address]Dr. Grace Abdul MCV (RBC) [Entitic vol] 96.0 fL Normal 81.0-99.0 [facility] Comment on above: Performed By: #### C BC ####[facility] [address] [place] [address]Dr. Grace Abdul MONO # 0.6 103/ul Normal 0.3-0.8 [facility] Comment on above: Performed By: #### C BC ####[facility] Glcylnyakq[address] [place] [address]Dr. Grace Abdul Monocytes/100 WBC (Bld) 14.4 % Critically high 1.7-12.0 [facility] Comment on above: Performed By: #### C BC ####[facility] W[address] [place] [address]Dr. Grace Abdul NEUT # 3.0 103/ul Normal 1.4-6.5 [facility] Comment on above: Performed By: #### C BC ####[facility] Wesrixvz[address] [place] [address]Dr. Grace Abdul Neutrophils/100 WBC (Bld) 71.5 % Normal 43.0-75.0 [facility] Comment on above: Performed By: #### C BC ####[facility] [address]ajexh[address] [place] [id number]. Grace Abdul Platelet mean volume (Bld) [Entitic vol] 9.2 fL Critically low 9.5-13.5 [facility] Comment on above: Performed By: #### C BC ####[facility] Xqmp[address]cxpd[address] [place] [address]Dr. Grace Abdul PLT 290 103/ul Normal 150-450 [facility] Comment on above: Performed By: #### C BC ####[facility] Clh[address]yt[address]ozj[address] [place] [address]Dr. Grace Abdul RBC 3.77 106/ul Critically low 4.20-5.40 [facility] Comment on above: Performed By: #### C BC ####[facility] P[address]tozpae[address] [place] [address]Dr. Grace Abdul WBC 4.2 103/ul Normal 4.0-11.0 [facility] Comment on above: Performed By: #### C BC ####[facility] [address]ix[address]egwsg[address] [place] [address]DrLisette Abdul FREE THYROXINE INDEX T7on FTI 2.63 Normal 1.30-4.50 [facility] Comment on above: Performed By: #### B MP #### [facility] Laboratory [address] [place] [address] [address] Grace Abdul T3U 35.0 % Normal 30.0-39.0 [facility] Comment on above: Performed By: #### B MP #### [facility] Laboratory [address] [address] [address] Grace Abdul T4 [Mass/Vol] 7.50 ug/dL Normal 4.80-13.90 [facility] Comment on above: Performed By: #### B MP #### [facility] Laboratory [address] [address] [address] Grace Abdul GLYCOHEMOGLOBIN A1Con 2021 ADA RECOMMENDATION SEE BELOW Normal [facility] Comment on above: Result Comment: ADA RECOMMENDED LIMIT 4.0 - 6.0 ADA THERAPEUTIC TARGET < 7.0 ACTION SUGGESTED > 7.0 Performed By: #### A 1C ####[facility] [address] [place], [place] [address]DrLisette Abdul Glucose [Mass/Vol] 111 mg/dL Normal [facility] Comment on above: Performed By: #### A 1C ####[facility] [address]rhpbpcv[address] [place] [address]DrLisette Abdul HbA1c (Bld) [Mass fraction] 5.5 % Normal 4.5-6.2 [facility] Comment on above: Performed By: #### A 1C ####[facility] Khmyvbprpv[address] [place] [address]DrLisette Abdul IRONon 12-11-2021 Iron [Mass/Vol] 50.0 ug/dL Normal 50.0-170.0 [facility] Comment on above: Performed By: #### I KASANDRA WEBSTER, VITB12 ####[facility] [address] [place] [address]Dr. Grace Abdul LIPID PROFILEon 12-11-2021 CHOL-HDL RATIO NORM SEE BELOW Normal [facility] Comment on above: Result Comment: 3.3 - 4.4 LOW RISK 4.4 - 7.1 AVERAGE RISK 7.1 - 11.0 MODERATE RISK >11.0 HIGH RISK Performed By: #### B MP #### [facility] Laboratory [address] [place] [address] [address] Grace Abdul Cholesterol [Mass/Vol] 182 mg/dL Normal <=200 [facility] Comment on above: Performed By: #### B MP #### [facility] Laboratory [address] [place] [address] [address] Grace Abdul Cholesterol in HDL [Mass/Vol] 60 mg/dL Normal 40-60 [facility] Comment on above: Performed By: #### B MP #### [facility] Laboratory [address] [place] [address] [address] Grace Abdul Cholesterol in LDL [Mass/Vol] 101.2 mg/dL Normal [facility] Comment on above: Performed By: #### B MP #### [facility] Laboratory [address] [place] [address] [address] Grace Abdul Cholesterol.total/Ch olesterol in HDL [Mass ratio] 3.0 {ratio} Normal [facility] Comment on above: Performed By: #### B MP #### [facility] Laboratory [address] [place] [address] [address] Grace Abdul HDL NORMAL > or = 60 mg/dl - LO W CARDIOVASCULAR RISK <40 mg/dl - HIGH CARDIOVASCULAR RISK Normal [facility] Comment on above: Performed By: #### B MP #### [facility] Laboratory [address] [place] [address] [address] Grace Abdul LDL CALC NORMAL SEE BELOW Normal [facility] Comment on above: Result Comment: <100 mg/dl OPTIMAL 100 - 129 mg/dl NEAR OR ABOVE OPTIMAL 130 - 159 mg/dl BORDERLINE HIGH 160 - 189 mg/dl HIGH >190 mg/dl VERY HIGH Performed By: #### B MP #### [facility] Laboratory [address] [place] [address] [address] Grace Abdul Triglyceride [Mass/Vol] 104 mg/dL Normal <=150 [facility] Comment on above: Performed By: #### B MP #### [facility] Laboratory [address] [place] [address] Dr. Grace Abdul VLDL CALC 20.8 mg/dL Normal [facility] Comment on above: Performed By: #### B MP #### [facility] Laboratory [address] [place] [address] Dr. Grace Abdul PROF 14(COMP METB)on 022 Albumin [Mass/Vol] 3.5 g/dL Normal 3.4-5.0 [facility] Comment on above: Performed By: #### B MP #### [facility] Laboratory [address] [place] [address] Dr. Grace Abdul Albumin/Globulin [Mass ratio] 1.0 {ratio} Normal [facility] Comment on above: Performed By: #### B MP #### [facility] Laboratory [address] [place] [address] Dr. Grace Abdul ALP [Catalytic activity/Vol] 55 U/L Normal 46-116 [facility] Comment on above: Performed By: #### B MP #### [facility] Laboratory [address] [place] [address] Dr. Grace Abdul ALT [Catalytic activity/Vol] 21 U/L Normal 14-59 [facility] Comment on above: Performed By: #### B MP #### [facility] Laboratory [address] [place] [address] Dr. Grace Abdul Anion gap [Moles/Vol] 9.3 mmol/L Normal [facility] Comment on above: Performed By: #### B MP #### [facility] Laboratory [address] [place] [address] Dr. Grace Abdul AST [Catalytic activity/Vol] 21 U/L Normal 15-37 [facility] Comment on above: Performed By: #### B MP #### [facility] [address] [place] [address] Dr. Grace Abdul Bilirubin [Mass/Vol] 0.3 mg/dL Normal 0.2-1.0 [facility] Comment on above: Performed By: #### B MP #### [facility] Laboratory [address] [place] [address] [address] Grace Abdul Calcium [Mass/Vol] 9.5 mg/dL Normal 8.5-10.1 [facility] Comment on above: Performed By: #### B MP #### [facility] Laboratory [address] [place] [address] [address] Grace Abdul Chloride [Moles/Vol] 102 mmol/L Normal 98-107 [facility] Comment on above: Performed By: #### B MP #### [facility] Laboratory [address] [place] [address] [address] Grace Abdul CO2 [Moles/Vol] 28.5 mmol/L Normal 21.0-32.0 [facility] Comment on above: Performed By: #### B MP #### [facility] Laboratory [address] [place] [address] [address] Grace Abdul Creatinine [Mass/Vol] 1.04 mg/dL Critically high 0.55-1.02 [facility] Comment on above: Performed By: #### B MP #### [facility] Laboratory [address] [place] [address] [address] Grace Abdul EGFR-AF CROATIAN >60 Normal >=60 [facility] Comment on above: Performed By: #### B MP #### [facility] Laboratory [address] [place] [address] [address] Grace Abdul EGFR-NON AF CROATIAN 51 mL/min/1.73m2 Critically low >=60 [facility] Comment on above: Performed By: #### B MP #### [facility] Laboratory [address] [place] [address] [address] Grace Abdul Globulin (S) [Mass/Vol] 3.5 g/dL Normal [facility] Comment on above: Performed By: #### B MP #### [facility] Laboratory [address] [place] [address] [address] Grace Abdul Glucose [Mass/Vol] 102 mg/dL Normal 74-106 [facility] Comment on above: Performed By: #### B MP #### [facility] Laboratory [address] [place] [address] [address] Grace Abdul Potassium [Moles/Vol] 3.8 mmol/L Normal 3.5-5.1 [facility] Comment on above: Performed By: #### B MP #### [facility] Laboratory [address] [place] [address] [address] Grace Abdul Protein [Mass/Vol] 7.0 g/dL Normal 6.4-8.2 [facility] Comment on above: Performed By: #### B MP #### [facility] Laboratory [address] [place] [address] [address] Grace Abdul Sodium [Moles/Vol] 136 mmol/L Normal 136-145 [facility] Comment on above: Performed By: #### B MP #### [facility] Laboratory [address] [place] [address] [address] Grace Abdul Urea nitrogen [Mass/Vol] 20.0 mg/dL Critically high 7.0-18.0 [facility] Comment on above: Performed By: #### B MP #### [facility] Laboratory [address] [place] [address] [address] Grace Abdul Urea nitrogen/Creatinine [Mass ratio] 19.2 mg/mg Normal [facility] Comment on above: Performed By: #### B MP #### [facility] Laboratory [address] [place] [address] [address] Grace Abdul TSHon 12-11-2021 TSH 0.247 uIU/mL Critically low 0.358-3.740 [facility] Comment on above: Performed By: #### B MP #### [facility] Laboratory [address] [place] [address] [address] Grace Abdul VITAMIN B12on 12-11-2021 Cobalamin (Vitamin B12) [Mass/Vol] 762.0 pg/mL Normal 193.0-986.0 [facility] Comment on above: Performed By: #### I DARIN, VITAD, VITB12 ####[facility] [address] [place] [address]Dr. Grace Abdul VITAMIN D 25 OHon 12-11-2021 VIT D 25-OH 54.9 ng/mL Normal [facility] Comment on above: Performed By: #### I DARIN VITAD, VITB12 ####[facility] [address] [place], [place] [address]Xb. Grace Abdul VIT D RANGES SEE BELOW Normal [facility] Comment on above: Result Comment: <20 ng/mL Vit D deficient 20 - <30 ng/mL Vit D insufficient 30 - 100 ng/mL Vit D sufficient >100 ng/mL Potential Toxicity Performed By: #### I DARIN VITAD, VITB12 ####[facility] [address] [place], [place] [address]Hf. Grace Franko MG MAMM SCREEN 3D CLEMENCIA CADon 11-25-2021 MG MAMM SCREEN 3D CLEMENCIA CAD Patient: ALEXA DELGADO Exam Date: 11/25/2021 : 1940 Gender:F Ordering : DR GALINA ROGERS . Admission #: [id number] Family : DR ELOISA MORALES Order #: [id number] CLICK HERE TO VIEW EXAM RADIOLOGY REPORT [...] Treatments None Family Cancers None LOCATION: [facility] BREAST COMPOSITION: Scattered areas fibroglandular [...] MD on 11/25/2021 at 14:14 Normal [facility] CULTURE URINEon 11-24-2021 CULTURE URINE Culture Observations : LIGHT GROWTH OF MIXED GENITAL ALANIS. NO POTENTIAL PATHOGENS SEEN. Normal [facility] Comment on above: Performed By: #### U RCX ####[facility] [address] [place] [address]Dr. Grace Abdul GI PANEL (PCR)on 11-24-2021 Adenovirus F 40/41 Not detected Normal NOT DETECTED [facility] Comment on above: Performed By: #### C BC #### [facility] Laboratory [address] [place] [address] Dr. Grace Abdul Astrovirus Not detected Normal NOT DETECTED [facility] Comment on above: Performed By: #### C BC #### [facility] Laboratory [address] [place] [address] Dr. Grace Domran. Diff toxin A/B Not detected Normal NOT DETECTED [facility] Comment on above: Performed By: #### C BC #### [facility] Laboratory [address] [place] [address] Dr. Grace Abdul Campylobacter Not detected Normal NOT DETECTED [facility] Comment on above: Performed By: #### C BC #### [facility] Laboratory [address] [place] [address] Dr. Grace Abdul Cryptosporidium Not detected Normal NOT DETECTED [facility] Comment on above: Performed By: #### C BC #### [facility] Laboratory [address] [place] [address] Dr. Grace Abdul Cyclos. Cayetanensis Not detected Normal NOT DETECTED [facility] Comment on above: Performed By: #### C BC #### [facility] Laboratory [address] [place] [address] Dr. Grace Abdul E. Coli O157 Not Applicable Normal Not Applicable [facility] Comment on above: Performed By: #### C BC #### [facility] Laboratory [address] [place] [address] Dr. Grace Abdul E. histolytica Not detected Normal NOT DETECTED [facility] Comment on above: Performed By: #### C BC #### [facility] Laboratory [address] [place] [address] Dr. Grace Abdul EAEC Not detected Normal NOT DETECTED [facility] Comment on above: Performed By: #### C BC #### [facility] Laboratory [address] [place] [address] Dr. Grace Abdul EIEC Not detected Normal NOT DETECTED [facility] Comment on above: Performed By: #### C BC #### [facility] Laboratory [address] [place] [address] [address] Grace Abdul EPEC Not detected Normal NOT DETECTED [facility] Comment on above: Performed By: #### C BC #### [facility] Laboratory [address] [place] [address] Dr. Grace Abdul ETEC Not detected Normal NOT DETECTED [facility] Comment on above: Performed By: #### C BC #### [facility] [address] [place] [address] Dr. Grace Smithlivanda Not detected Normal NOT DETECTED [facility] Comment on above: Performed By: #### C BC #### [facility] Laboratory [address] [place] [address] Dr. Grace MCKEON CONTROLS PASSED Normal [facility] Comment on above: Performed By: #### C BC #### [facility] Laboratory [address] [place] [address] Dr. Grace DIETRICH HEADER GI PANEL BACTERIA Normal [facility] Comment on above: Performed By: #### C BC #### [facility] Laboratory [address] [place] [address] Dr. Grace SANDERS ECOLI GI PANEL DIARRHEAGEN IC E.COLI / SHIGELLA Normal [facility] Comment on above: Performed By: #### C BC #### [facility] Laboratory [address] [place] [address] Dr. Grace SANDERS INFO SEE BELOW [facility] Comment on above: Result Comment: EAEC - Enteroaggregative E. Coli EPEC- Enteropathogenic E. Coli ETEC- Enterotoxigenic E. Coli lt/st STEC- Shigella-like toxin-producing E. Coli stx1/stx2 EIEC- Shigella/Enteroinvasive E. Coli Performed By: #### C BC #### [facility] Laboratory [address] [place], [place] [id number] Dr. Grace SANDERS PARASITES GI PANEL PARASITES Normal [facility] Comment on above: Performed By: #### C BC #### [facility] [address] [place] [address] Dr. Grace SANDERS VIRUS GI PANEL VIRUSES Normal [facility] Comment on above: Performed By: #### C BC #### [facility] [address] [place] [address] Dr. Grace Abdul Norovirus GI/GII Not detected Normal NOT DETECTED [facility] Comment on above: Performed By: #### C BC #### [facility] [address] [place] [address] Dr. Grace Abdul P. Shigelloides Not detected Normal NOT DETECTED [facility] Comment on above: Performed By: #### C BC #### [facility] [address] [place] [address] Dr. Grace Abdul Rotavirus A Not detected Normal NOT DETECTED [facility] Comment on above: Performed By: #### C BC #### [facility] [address] [place] [address] Dr. Grace Abdul Salmonella Not detected Normal NOT DETECTED [facility] Comment on above: Performed By: #### C BC #### [facility] [address] [place] [address] Dr. Grace Abdul Sapovirus Not detected Normal NOT DETECTED [facility] Comment on above: Performed By: #### C BC #### [facility] [address] [place] [address] Dr. Grace Abdul STEC Not detected Normal NOT DETECTED [facility] Comment on above: Performed By: #### C BC #### [facility] [address] [place] [address] Dr. Grace Abdul Vibrio Not detected Normal NOT DETECTED [facility] Comment on above: Performed By: #### C BC #### [facility] [address] [place] [address] Dr. Grace Abdul Vibrio Cholera Not detected Normal NOT DETECTED [facility] Comment on above: Performed By: #### C BC #### [facility] Laboratory [address] [address] [address] Grace Blue Enterocolitica Not detected Normal NOT DETECTED [facility] Comment on above: Performed By: #### C BC #### [facility] Laboratory [address] [address] [address] Grace Abdul UA RANDOM W/MICROSCOPICon BACTERIA NONE SEEN Normal NONE SEEN [facility] Comment on above: Performed By: #### U AMIC ####[facility] [address] [place] [address]Dr. Grace Abdul Bilirubin Ql (U) Negative Normal NEGATIVE [facility] Comment on above: Performed By: #### U AMIC ####[facility] [address] [place] [address]Dr. Grace Abdul CAST NONE SEEN Normal NONE SEEN [facility] Comment on above: Performed By: #### U AMIC ####[facility] [address] [place] [address]Dr. Grace Abdul Clarity (U) CLEAR Normal CLEAR [facility] Comment on above: Performed By: #### U AMIC ####[facility] [address] [place] [address]Dr. Grace Abdul Color (U) LT. YELLOW Normal YELLOW [facility] Comment on above: Performed By: #### U AMIC ####[facility] [address] [place] [address]Dr. Grcae Abdul Crystals LM Nom (Urine sed) NONE SEEN Normal NONE SEEN [facility] Comment on above: Performed By: #### U AMIC ####[facility] [address] [place] [address]Dr. Grace Abdul Epithelial cells LM Ql (Urine sed) FEW Abnormal NONE SEEN /RARE [facility] Comment on above: Performed By: #### U AMIC ####[facility] [address] [place] [address]Dr. Grace Abdul Glucose Ql (U) Negative Normal NEGATIVE The [facility] Comment on above: Performed By: #### U AMIC ####[facility] [address] [place] [address]Dr. Grace Abdul Hemoglobin Ql (U) TRACE-INTACT Abnormal NEGATIVE [facility] Comment on above: Performed By: #### U AMIC ####[facility] [address] [place] [address]Dr. Grace Abdul Ketones Ql (U) Negative Normal NEGATIVE The [facility] Comment on above: Performed By: #### U AMIC ####[facility] [address] [place], [place] [address]Dr. Grace Abdul LEUKOCYTES Negative Normal NEGATIVE [facility] Comment on above: Performed By: #### U AMIC ####[facility] [address] [place], [place] [address]Dr. Grace Abdul MUCOUS NONE SEEN Normal NONE SEEN [facility] Comment on above: Performed By: #### U AMIC ####[facility] Eveje[address] [place], [place] [address]Dr. Grace Franko Nitrite Ql (U) Negative Normal NEGATIVE [facility] Comment on above: Performed By: #### U AMIC ####[facility] [address] [place], [place] [address]Dr. Grace Abdul pH (U) 7.5 [pH] Normal 5-9 [facility] Comment on above: Performed By: #### U AMIC ####[facility] Fc[address] [place], [place] [address]Dr. Grace Abdul RBC 0-2 Normal 0-2 [facility] Comment on above: Performed By: #### U AMIC ####[facility] [address] [place], [place] [address]Dr. Benitalee ann Abdul SPEC GRAVITY 1.010 Normal 1.005-<=1.025 [facility] Comment on above: Performed By: #### U AMIC ####[facility] [address] [place], [place] [address]Dr. Grace Abdul UA PROTEIN Negative Normal NEGATIVE/ TRACE [facility] Comment on above: Performed By: #### U AMIC ####[facility] [address] [place] [id number] Grace Abdul Urobilinogen Qn (U) 0.2 {Ashley'U}/dL Normal 0.2 - 1. 0 [facility] Comment on above: Performed By: #### U AMIC ####[facility] [address] [place] [id number] Abdul WBC NONE SEEN Normal NONE SEEN [facility] Comment on above: Performed By: #### U AMIC ####[facility] [address] [place] [id number]. Grace Abdul CBC AUTO DIFFon 11-23-2021 BASO # 0.0 103/ul Normal 0.0-0.1 [facility] Comment on above: Performed By: #### C BC #### [facility] [address] [address] [address] Grace Abdul Basophils/100 WBC (Bld) 0.4 % Normal 0.2-2.0 [facility] Comment on above: Performed By: #### C BC #### [facility] [address] [address] [address] Grace Abdul EO # 0.1 103/ul Normal 0.0-0.7 [facility] Comment on above: Performed By: #### C BC #### [facility] [address] [address] [address] Grace Abdul Eosinophils/100 WBC (Bld) 1.5 % Normal 0.9-7.0 [facility] Comment on above: Performed By: #### C BC #### [facility] [address] [address] [address] Grace Abdul Erythrocyte distribution width (RBC) [Ratio] 13.2 % Normal 11.0-15.0 [facility] Comment on above: Performed By: #### C BC #### [facility] [address] [address] [address] Grace Abdul Hematocrit (Bld) [Volume fraction] 31.9 % Critically low 36.0-48.0 [facility] Comment on above: Performed By: #### C BC #### [facility] [address] [address] [address] Grace Abdul Hemoglobin (Bld) [Mass/Vol] 10.5 g/dL Critically low 12.0-16.0 [facility] Comment on above: Performed By: #### C BC #### [facility] [address] [address] [address] Grace Abdul IG # 0.01 10e3/ul Normal 0.00-0.03 [facility] Comment on above: Performed By: #### C BC #### [facility] [address] [place] [address] Dr. Grace Abdul IG % 0.2 % Normal 0.0-0.5 [facility] Comment on above: Performed By: #### C BC #### [facility] [address] [place] [address] Dr. Grace Abdul LYMPH # 0.7 103/ul Critically low 1.2-3.[address] [facility] Comment on above: Performed By: #### C BC #### [facility] [address] [place] [address] Dr. Grace Abdul Lymphocytes/100 WBC (Bld) 14.8 % Critically low 20.5-60.0 [facility] Comment on above: Performed By: #### C BC #### [facility] [address] [place] [address] Dr. Grace Abdul MANUAL DIFF REQ NO Normal [facility] Comment on above: Performed By: #### C BC #### [facility] [address] [place] [address] Dr. Grace Abdul MCH (RBC) [Entitic mass] 31.4 pg Normal 26.7-34.0 [facility] Comment on above: Performed By: #### C BC #### [facility] [address] [place] [address] Dr. Grace Abdul MCHC (RBC) [Mass/Vol] 32.9 g/dL Normal 29.9-35.2 [facility] Comment on above: Performed By: #### C BC #### [facility] [address] [place], [place] [id number] Dr. Grace Abdul MCV (RBC) [Entitic vol] 95.5 fL Normal 81.0-99.0 [facility] Comment on above: Performed By: #### C BC #### [facility] [address] [place] [address] Dr. Grace Abdul MONO # 0.6 103/ul Normal 0.3-0.8 [facility] Comment on above: Performed By: #### C BC #### [facility] [address] [place] [address] Dr. Grace Abdul Monocytes/100 WBC (Bld) 13.4 % Critically high 1.7-12.0 [facility] Comment on above: Performed By: #### C BC #### [facility] [address] [place] [address] Dr. Grace Abdul NEUT # 3.3 103/ul Normal 1.4-6.5 [facility] Comment on above: Performed By: #### C BC #### [facility] [address] [place] [address] Dr. Grace Abdul Neutrophils/100 WBC (Bld) 69.7 % Normal 43.0-75.0 [facility] Comment on above: Performed By: #### C BC #### [facility] [address] [place] [address] Dr. Grace Abdul Platelet mean volume (Bld) [Entitic vol] 9.1 fL Critically low 9.5-13.5 [facility] Comment on above: Performed By: #### C BC #### [facility] [address] [place] [address] Dr. Grace Abdul PLT 335 103/ul Normal 150-450 [facility] Comment on above: Performed By: #### C BC #### [facility] [address] [place] [address] Dr. Grace Abdul RBC 3.34 106/ul Critically low 4.20-5.40 [facility] Comment on above: Performed By: #### C BC #### [facility] [address] [place] [address] Dr. Grace Abdul WBC 4.8 103/ul Normal 4.0-11.0 [facility] Comment on above: Performed By: #### C BC #### [facility] [address] [place], [place] [address] Dr. Grace Abdul FREE THYROXINE INDEX T7on FTI 1.15 Critically low 1.30-4.[address] [facility] Comment on above: Performed By: #### T 7, CMP, TSH ####[facility] [address] [place] [id number] Abdul T3U 31.0 % Normal 30.0-39.0 [facility] Comment on above: Performed By: #### T 7, CMP, TSH ####[facility] [address] [place] [id number] Abdul T4 [Mass/Vol] 3.70 ug/dL Critically low 4.80-13.90 [facility] Comment on above: Performed By: #### T 7, CMP, TSH ####[facility] [address] [place] [id number] Abdul IRONon 11-23-2021 Iron [Mass/Vol] 52.0 ug/dL Normal 50.0-170.0 [facility] Comment on above: Performed By: #### C VDTB #### [facility] [address] [place], [place] [address] Dr. Grace Abdul PROF 14(COMP METB)on 022 Albumin [Mass/Vol] 3.5 g/dL Normal 3.4-5.0 [facility] Comment on above: Performed By: #### T 7, CMP, TSH ####[facility] [address] [place] [id number] Abdul Albumin/Globulin [Mass ratio] 1.1 {ratio} Normal [facility] Comment on above: Performed By: #### T 7, CMP, TSH ####[facility] [address] [place] [id number] Abdul ALP [Catalytic activity/Vol] 69 U/L Normal 46-116 [facility] Comment on above: Performed By: #### T 7, CMP, TSH ####[facility] [address] [place] [address]Dr. Grace Abdul ALT [Catalytic activity/Vol] 51 U/L Normal 14-59 [facility] Comment on above: Performed By: #### T 7, CMP, TSH ####[facility] [address] [place] [address]Dr. Grace Abdul Anion gap [Moles/Vol] 11.5 mmol/L Normal [facility] Comment on above: Performed By: #### T 7, CMP, TSH ####[facility] [address] [place], [place] [address]Dr. Grace Abdul AST [Catalytic activity/Vol] 24 U/L Normal 15-37 [facility] Comment on above: Performed By: #### T 7, CMP, TSH ####[facility] [address] [place], [place] [address]Dr. Grace Abdul Bilirubin [Mass/Vol] 0.2 mg/dL Normal 0.2-1.0 [facility] Comment on above: Performed By: #### T 7, CMP, TSH ####[facility] [address] [place], [place] [address]Dr. Grace Abdul Calcium [Mass/Vol] 9.3 mg/dL Normal 8.5-10.1 [facility] Comment on above: Performed By: #### T 7, CMP, TSH ####[facility] [address]ae[address] [place], [place] [address]Dr. Grace Abdul Chloride [Moles/Vol] 98 mmol/L Normal 98-107 [facility] Comment on above: Performed By: #### T 7, CMP, TSH ####[facility] [address] [place], [place] [address]Dr. Grace Abdul CO2 [Moles/Vol] 28.7 mmol/L Normal 21.0-32.0 [facility] Comment on above: Performed By: #### T 7, CMP, TSH ####[facility] [address] [place], [place] [address]Dr. Grace Abdul Creatinine [Mass/Vol] 1.11 mg/dL Critically high 0.55-1.02 [facility] Comment on above: Performed By: #### T 7, LEONOR, TSH ####[facility] [address] [place] [address]Dr. Grace Abdul EGFR-AF CROATIAN 57 mL/min/1.73m2 Critically low >=60 [facility] Comment on above: Performed By: #### T 7, CMP, TSH ####[facility] [address] [place] [address]Dr. Grace Abdul EGFR-NON AF CROATIAN 47 mL/min/1.73m2 Critically low >=60 [facility] Comment on above: Performed By: #### Ainsley 7, LEONOR, TSH ####[facility] [address] [place], [place] [address]Dr. Benitalee ann Abdul Globulin (S) [Mass/Vol] 3.3 g/dL Normal [facility] Comment on above: Performed By: #### T 7, CMP, TSH ####[facility] [address] [place], [place] [address]Dr. Grace Franko Glucose [Mass/Vol] 88 mg/dL Normal 74-106 [facility] Comment on above: Performed By: #### T 7, CMP, TSH ####[facility] [address] [place] [address]Dr. Benitalee ann Abdul Potassium [Moles/Vol] 4.2 mmol/L Normal 3.5-5.1 [facility] Comment on above: Performed By: #### T 7, CMP, TSH ####[facility] [address] [place] [address]Dr. Grace Abdul Protein [Mass/Vol] 6.8 g/dL Normal 6.4-8.2 [facility] Comment on above: Performed By: #### T 7, CMP, TSH ####[facility] [address] [place] [address]Dr. Benitalee ann Abdul Sodium [Moles/Vol] 134 mmol/L Critically low 136-145 [facility] Comment on above: Performed By: #### T 7, CMP, TSH ####[facility] [address] [place] [address]DrLisette Abdul Urea nitrogen [Mass/Vol] 33.0 mg/dL Critically high 7.0-18.0 [facility] Comment on above: Performed By: #### T 7, CMP, TSH ####[facility] [address] [place] [address]DrLisette Abdul Urea nitrogen/Creatinine [Mass ratio] 29.7 mg/mg Normal [facility] Comment on above: Performed By: #### T 7, CMP, TSH ####[facility] [address] [place] [address]DrLisette Abdul TSHon 11-23-2021 TSH 0.469 uIU/mL Normal 0.358-3.740 [facility] Comment on above: Performed By: #### T 7, CMP, TSH ####[facility] [address] [place] [address]DrLisette Abdul CBC AUTO DIFFon 11-17-2021 BASO # 0.0 103/ul Normal 0.0-0.1 [facility] Comment on above: Performed By: #### C VDTBH #### [facility] [address] [place] [address] Dr. Grace Abdul Basophils/100 WBC (Bld) 0.2 % Normal 0.2-2.0 [facility] Comment on above: Performed By: #### C VDTBH #### [facility] [address] [place] [address] Dr. Grace Abdul EO # 0.1 103/ul Normal 0.0-0.7 [facility] Comment on above: Performed By: #### C VDTBH #### [facility] [address] [place] [address] Dr. Grace Abdul Eosinophils/100 WBC (Bld) 0.9 % Normal 0.9-7.0 [facility] Comment on above: Performed By: #### C VDTBH #### [facility] [address] [place] [address] Dr. Grace Abdul Erythrocyte distribution width (RBC) [Ratio] 12.8 % Normal 11.0-15.0 [facility] Comment on above: Performed By: #### C VDTBH #### [facility] [address] [place] [address] Dr. Grace Abdul Hematocrit (Bld) [Volume fraction] 35.2 % Critically low 36.0-48.0 [facility] Comment on above: Performed By: #### C VDTBH #### [facility] [address] [place] [address] Dr. Grace Abdul Hemoglobin (Bld) [Mass/Vol] 12.1 g/dL Normal 12.0-16.0 [facility] Comment on above: Performed By: #### C VDTBH #### [facility] [address] [place] [address] Dr. Grace Abdul IG # 0.05 10e3/ul Critically high 0.00-0.03 [facility] Comment on above: Performed By: #### C VDTBH #### [facility] [address] [place] [address] Dr. Grace Abdul IG % 0.6 % Critically high 0.0-0.5 [facility] Comment on above: Performed By: #### C VDTBH #### [facility] [address] [place] [address] Dr. Grace Abdul LYMPH # 0.6 103/ul Critically low 1.2-3.[address] [facility] Comment on above: Performed By: #### C VDTBH #### [facility] [address] [place] [address] Dr. Grace Abdul Lymphocytes/100 WBC (Bld) 7.4 % Critically low 20.5-60.0 [facility] Comment on above: Performed By: #### C VDTBH #### [facility] [address] [place] [address] Dr. Grace Abdul MANUAL DIFF REQ NO Normal [facility] Comment on above: Performed By: #### C VDTBH #### [facility] [address] [address] [address] Grace Abdul MCH (RBC) [Entitic mass] 31.5 pg Normal 26.7-34.0 [facility] Comment on above: Performed By: #### C VDTBH #### [facility] [address] [place] [address] Dr. Grace Abdul MCHC (RBC) [Mass/Vol] 34.4 g/dL Normal 29.9-35.2 [facility] Comment on above: Performed By: #### C VDTBH #### [facility] [address] [place] [address] Dr. Grace Abdul MCV (RBC) [Entitic vol] 91.7 fL Normal 81.0-99.0 [facility] Comment on above: Performed By: #### C VDTBH #### [facility] [address] [place] [address] Dr. Grace Abdul MONO # 1.0 103/ul Critically high 0.3-0.8 [facility] Comment on above: Performed By: #### C VDTBH #### [facility] [address] [place] [address] Dr. Grace Abdul Monocytes/100 WBC (Bld) 12.1 % Critically high 1.7-12.0 [facility] Comment on above: Performed By: #### C VDTBH #### [facility] [address] [place] [address] Dr. Grace Abdul NEUT # 6.3 103/ul Normal 1.4-6.5 [facility] Comment on above: Performed By: #### C VDTBH #### [facility] [address] [place] [address] Dr. Grace Abdul Neutrophils/100 WBC (Bld) 78.8 % Critically high 43.0-75.0 [facility] Comment on above: Performed By: #### C VDTBH #### [facility] [address] [place] [address] Dr. Grace Abdul Platelet mean volume (Bld) [Entitic vol] 9.1 fL Critically low 9.5-13.5 [facility] Comment on above: Performed By: #### C VDTBH #### [facility] [address] [place] [address] Dr. Grace Abdul PLT 281 103/ul Normal 150-450 [facility] Comment on above: Performed By: #### C VDTBH #### [facility] [address] [place] [address] Dr. Grace Abdul RBC 3.84 106/ul Critically low 4.20-5.40 [facility] Comment on above: Performed By: #### C VDTBH #### [facility] [address] [place] [address] Dr. Grace Abdul WBC 8.0 103/ul Normal 4.0-11.0 [facility] Comment on above: Performed By: #### C VDTBH #### [facility] [address] [place] [address] Dr. Grace Abdul MAGNESIUMon 11-17-2021 Magnesium [Mass/Vol] 1.9 mg/dL Normal 1.8-2.4 [facility] Comment on above: Performed By: #### C VDTBH #### [facility] [address] [place] [address] Dr. Grace Abdul PROF CHEM 8 (BAS METB)on Anion gap [Moles/Vol] 13.9 mmol/L Normal [facility] Comment on above: Performed By: #### C VDTBH #### [facility] [address] [place] [address] Dr. Grace Abdul Calcium [Mass/Vol] 8.7 mg/dL Normal 8.5-10.1 [facility] Comment on above: Performed By: #### C VDTBH #### [facility] [address] [place] [address] Dr. Grace Abdul Chloride [Moles/Vol] 101 mmol/L Normal 98-107 [facility] Comment on above: Performed By: #### C VDTBH #### [facility] [address] [place] [address] Dr. Grace Abdul CO2 [Moles/Vol] 24.3 mmol/L Normal 21.0-32.0 [facility] Comment on above: Performed By: #### C VDTBH #### [facility] [address] [place] [address] Dr. Grace Abdul Creatinine [Mass/Vol] 0.89 mg/dL Normal 0.55-1.02 [facility] Comment on above: Performed By: #### C VDTBH #### [facility] [address] [address] [address] Grace Abdul EGFR-AF CROATIAN >60 Normal >=60 [facility] Comment on above: Performed By: #### C VDTBH #### [facility] [address] [address] [address] Grace Abdul EGFR-NON AF CROATIAN >60 Normal >=60 [facility] Comment on above: Performed By: #### C VDTBH #### [facility] [address] [place] [address] Dr. Grace Abdul Glucose [Mass/Vol] 97 mg/dL Normal 74-106 [facility] Comment on above: Performed By: #### C VDTBH #### [facility] [address] [address] [address] Grace Abdul Potassium [Moles/Vol] 3.2 mmol/L Critically low 3.5-5.1 [facility] Comment on above: Performed By: #### C VDTBH #### [facility] [address] [place] [address] Dr. Grace Abdul Sodium [Moles/Vol] 136 mmol/L Normal 136-145 [facility] Comment on above: Performed By: #### C VDTBH #### [facility] [address] [address] [address] Grace Abdul Urea nitrogen [Mass/Vol] 14.0 mg/dL Normal 7.0-18.0 [facility] Comment on above: Performed By: #### C VDTBH #### [facility] [address] [address] [address] Grace Abdul Urea nitrogen/Creatinine [Mass ratio] 15.7 mg/mg Normal [facility] Comment on above: Performed By: #### C VDTBH #### [facility] [address] [place] [address] Dr. Grace Abdul CBC AUTO DIFFon 11-16-2021 BASO # 0.0 103/ul Normal 0.0-0.1 [facility] Comment on above: Performed By: #### B MP #### [facility] [address] [place] [address] Dr. Grace Abdul Basophils/100 WBC (Bld) 0.2 % Normal 0.2-2.0 [facility] Comment on above: Performed By: #### B MP #### [facility] [address] [place] [address] Dr. Grace Abdul EO # 0.0 103/ul Normal 0.0-0.7 [facility] Comment on above: Performed By: #### B MP #### [facility] [facility] [address] [place] [address] Dr. Grace Abdul Eosinophils/100 WBC (Bld) 0.5 % Critically low 0.9-7.0 [facility] Comment on above: Performed By: #### B MP #### [facility] [address] [place] [address] Dr. Grace Abdul Erythrocyte distribution width (RBC) [Ratio] 12.4 % Normal 11.0-15.0 [facility] Comment on above: Performed By: #### B MP #### [facility] [address] [place] [address] Dr. Grace Abdul Hematocrit (Bld) [Volume fraction] 33.6 % Critically low 36.0-48.0 [facility] Comment on above: Performed By: #### B MP #### [facility] [address] [place] [address] Dr. Grace Abdul Hemoglobin (Bld) [Mass/Vol] 11.8 g/dL Critically low 12.0-16.0 [facility] Comment on above: Performed By: #### B MP #### [facility] [address] [place] [address] Dr. Grace Abdul IG # 0.04 10e3/ul Critically high 0.00-0.03 [facility] Comment on above: Performed By: #### B MP #### [facility] [address] [place] [address] Dr. Grace Abdul IG % 0.7 % Critically high 0.0-0.5 [facility] Comment on above: Performed By: #### B MP #### [facility] [address] [place] [address] Dr. Grace Abdul LYMPH # 0.7 103/ul Critically low 1.2-3.8 [facility] Comment on above: Performed By: #### B MP #### [facility] [address] [place] [address] Dr. Grace Abdul Lymphocytes/100 WBC (Bld) 11.1 % Critically low 20.5-60.0 [facility] Comment on above: Performed By: #### B MP #### [facility] [address] [place] [address] Dr. Grace Abdul MANUAL DIFF REQ NO Normal [facility] Comment on above: Performed By: #### B MP #### [facility] [address] [place] [address] Dr. Grace Abdul MCH (RBC) [Entitic mass] 31.5 pg Normal 26.7-34.0 [facility] Comment on above: Performed By: #### B MP #### [facility] [address] [place] [address] Dr. Grace Abdul MCHC (RBC) [Mass/Vol] 35.1 g/dL Normal 29.9-35.2 [facility] Comment on above: Performed By: #### B MP #### [facility] [address] [place] [address] Dr. Grace Abdul MCV (RBC) [Entitic vol] 89.6 fL Normal 81.0-99.0 [facility] Comment on above: Performed By: #### B MP #### [facility] [address] [place] [address] Dr. Grace Abdul MONO # 0.9 103/ul Critically high 0.3-0.8 [facility] Comment on above: Performed By: #### B MP #### [facility] [address] [address] [address] Grace Abdul Monocytes/100 WBC (Bld) 14.0 % Critically high 1.7-12.0 [facility] Comment on above: Performed By: #### B MP #### [facility] [address] [address] [address] Grace Abdul NEUT # 4.5 103/ul Normal 1.4-6.5 [facility] Comment on above: Performed By: #### B MP #### [facility] [address] [place] [address] Dr. Grace Abdul Neutrophils/100 WBC (Bld) 73.5 % Normal 43.0-75.0 [facility] Comment on above: Performed By: #### B MP #### [facility] [address] [place] [address] Dr. Grace Abdul Platelet mean volume (Bld) [Entitic vol] 9.3 fL Critically low 9.5-13.5 [facility] Comment on above: Performed By: #### B MP #### [facility] [address] [place] [address] Dr. Grace Abdul PLT 292 103/ul Normal 150-450 [facility] Comment on above: Performed By: #### B MP #### [facility] [address] [place] [address] Dr. Grace Abdul RBC 3.75 106/ul Critically low 4.20-5.40 [facility] Comment on above: Performed By: #### B MP #### [facility] [address] [place] [address] Dr. Grace Abdul WBC 6.1 103/ul Normal 4.0-11.0 [facility] Comment on above: Performed By: #### B MP #### [facility] [address] [place] [address] Dr. Grace Abdul CULTURE URINEon 11-16-2021 CULTURE URINE Culture Observations : LIGHT GROWTH OF MIXED GENITAL ALANIS. NO POTENTIAL PATHOGENS SEEN. Normal [facility] Comment on above: Performed By: #### U RCX ####[facility] [id number] [address]. Grace HERNANDEZ URINE PROFILEon 2 Bilirubin Ql (U) Negative Normal NEGATIVE [facility] Comment on above: Performed By: #### C VDTBH #### [facility] [address] [address] [address] Grace Abdul Clarity (U) CLEAR Normal CLEAR [facility] Comment on above: Performed By: #### C VDTBH #### [facility] [address] [address] [address] Grace Abdul Color (U) LT. YELLOW Normal YELLOW [facility] Comment on above: Performed By: #### C VDTBH #### [facility] [address] [place] [address] Dr. Grace HIGGINS A micrscopic examination will be performed if indicated. Normal [facility] Comment on above: Performed By: #### C VDTBH #### [facility] [address] [place] [address] Dr. Grace Abdul Glucose Ql (U) Negative Normal NEGATIVE [facility] Comment on above: Performed By: #### C VDTBH #### [facility] [address] [place] [address] Dr. Grace Abdul Hemoglobin Ql (U) SMALL Abnormal NEGATIVE [facility] Comment on above: Performed By: #### C VDTBH #### [facility] [address] [address] [address] Grace Abdul Ketones Ql (U) 40 mg/dl Abnormal NEGATIVE [facility] Comment on above: Performed By: #### C VDTBH #### [facility] [address] [place] [address] Dr. Grace Abdul LEUKOCYTES SMALL Abnormal NEGATIVE [facility] Comment on above: Performed By: #### C VDTBH #### [facility] [address] [address] [address] Grace Abdul Nitrite Ql (U) Negative Normal NEGATIVE [facility] Comment on above: Performed By: #### C VDTBH #### [facility] [address] [place] [address] Dr. Grace Abdul pH (U) 7.0 [pH] Normal 5-9 [facility] Comment on above: Performed By: #### C VDTBH #### [facility] [address] [place] [address] Dr. Grace Abdul SPEC GRAVITY 1.010 Normal 1.005-<=1.025 [facility] Comment on above: Performed By: #### C VDTBH #### [facility] [address] [place] [address] Dr. Grace Abdul UA PROTEIN Negative Normal NEGATIVE/ TRACE [facility] Comment on above: Performed By: #### C VDTBH #### [facility] [address] [place] [address] Dr. Grace Abdul UR MICRO IND INDICATED Normal [facility] Comment on above: Performed By: #### C VDTBH #### [facility] [address] [place] [address] Dr. Grace Abdul Urobilinogen Qn (U) 0.2 {Ashley'U}/dL Normal 0.2 - 1. 0 [facility] Comment on above: Performed By: #### C VDTBH #### [facility] [address] [place] [address] Dr. Grace Abdul MAGNESIUMon 11-16-2021 Magnesium [Mass/Vol] 1.8 mg/dL Normal 1.8-2.4 [facility] Comment on above: Performed By: #### C VDTBH #### [facility] [address] [place] [address] Dr. Grace Abdul PROF CHEM 8 (BAS METB)on Anion gap [Moles/Vol] 12.7 mmol/L Normal [facility] Comment on above: Performed By: #### B MP #### [facility] [address] [place] [address] Dr. Grace Abdul Calcium [Mass/Vol] 8.3 mg/dL Critically low 8.5-10.1 [facility] e [facility] Comment on above: Performed By: #### B MP #### [facility] [address] [address] [address] Grace Abdul CO2 [Moles/Vol] 24.4 mmol/L Normal 21.0-32.0 [facility] Comment on above: Performed By: #### B MP #### [facility] [address] [address] [address] Grace Abdul Creatinine [Mass/Vol] 1.16 mg/dL Critically high 0.55-1.02 [facility] Comment on above: Performed By: #### B MP #### [facility] [address] [address] [address] Grace Abdul EGFR-AF CROATIAN 54 mL/min/1.73m2 Critically low >=60 [facility] Comment on above: Performed By: #### B MP #### [facility] [address] [address] [address] Grace bAdul EGFR-NON AF CROATIAN 45 mL/min/1.73m2 Critically low >=60 [facility] Comment on above: Performed By: #### B MP #### [facility] [address] [address] [address] Grace Abdul Glucose [Mass/Vol] 116 mg/dL Critically high 74-106 [facility] Comment on above: Performed By: #### B MP #### [facility] [address] [address] [address] Grace Abdul Urea nitrogen [Mass/Vol] 20.0 mg/dL Critically high 7.0-18.0 [facility] Comment on above: Performed By: #### B MP #### [facility] [address] [address] [address] Grace Abdul Urea nitrogen/Creatinine [Mass ratio] 17.2 mg/mg Normal [facility] Comment on above: Performed By: #### B MP #### [facility] [address] [address] [address] Grace Abdul Anion gap [Moles/Vol] 10.0 mmol/L Normal [facility] Comment on above: Performed By: #### B MP #### [facility] [address] [address] [address] Grace Abdul Calcium [Mass/Vol] 8.8 mg/dL Normal 8.5-10.1 [facility] Comment on above: Performed By: #### B MP #### [facility] [address] [address] [address] Grace Abdul Chloride [Moles/Vol] 96 mmol/L Critically low 98-107 [facility] Comment on above: Performed By: #### B MP #### [facility] [address] [address] [address] Grace Abdul CO2 [Moles/Vol] 26.1 mmol/L Normal 21.0-32.0 [facility] Comment on above: Performed By: #### B MP #### [facility] [address] [address] [address] Grace Abdul Creatinine [Mass/Vol] 1.11 mg/dL Critically high 0.55-1.02 [facility] Comment on above: Performed By: #### B MP #### [facility] [address] [address] [address] Grace Abdul EGFR-AF CROATIAN 57 mL/min/1.73m2 Critically low >=60 [facility] Comment on above: Performed By: #### B MP #### [facility] [address] [address] [address] Grace Abdul EGFR-NON AF CROATIAN 47 mL/min/1.73m2 Critically low >=60 [facility] Comment on above: Performed By: #### B MP #### [facility] [address] [address] [address] Grace Abdul Glucose [Mass/Vol] 94 mg/dL Normal 74-106 [facility] Comment on above: Performed By: #### B MP #### [facility] [address] [address] [address] Grace Abdul Potassium [Moles/Vol] 3.1 mmol/L Critically low 3.5-5.1 [facility] Comment on above: Performed By: #### B MP #### [facility] [address] [place] [address] Dr. Grace Abdul Performed By: #### C VDTBH #### [facility] [address] [place] [address] Dr. Grace Abdul Sodium [Moles/Vol] 129 mmol/L Critically low 136-145 [facility] Comment on above: Performed By: #### B MP #### [facility] [address] [place] [address] Dr. Grace Abdul Urea nitrogen [Mass/Vol] 16.0 mg/dL Normal 7.0-18.0 [facility] Comment on above: Performed By: #### B MP #### [facility] [address] [place] [address] Dr. Grace Abdul Urea nitrogen/Creatinine [Mass ratio] 14.4 mg/mg Normal [facility] Comment on above: Performed By: #### B MP #### [facility] [address] [place] [address] Dr. Grace Abdul Anion gap [Moles/Vol] 12.6 mmol/L Normal [facility] Comment on above: Performed By: #### C VDTBH #### [facility] [address] [place] [address] Dr. Grace Abdul Calcium [Mass/Vol] 8.6 mg/dL Normal 8.5-10.1 [facility] Comment on above: Performed By: #### C VDTBH #### [facility] [address] [place] [address] Dr. Grace Abdul Chloride [Moles/Vol] 95 mmol/L Critically low 98-107 [facility] Comment on above: Performed By: #### B MP #### [facility] [address] [place] [address] Dr. Grace Abdul Performed By: #### C VDTBH #### [facility] [address] [place] [address] Dr. Grace Abdul CO2 [Moles/Vol] 22.5 mmol/L Normal 21.0-32.0 [facility] Comment on above: Performed By: #### C VDTBH #### [facility] [address] [address] [address] Grace Abdul Creatinine [Mass/Vol] 0.95 mg/dL Normal 0.55-1.02 [facility] Comment on above: Performed By: #### C VDTBH #### [facility] [address] [address] [address] Grace Abdul EGFR-AF CROATIAN >60 Normal >=60 [facility] Comment on above: Performed By: #### C VDTBH #### [facility] [address] [address] [address] Grace Abdul EGFR-NON AF CROATIAN 56 mL/min/1.73m2 Critically low >=60 [facility] Comment on above: Performed By: #### C VDTBH #### [facility] [address] [address] [address] Grace Abdul Glucose [Mass/Vol] 92 mg/dL Normal 74-106 [facility] Comment on above: Performed By: #### C VDTBH #### [facility] [address] [address] [address] Grace Abdul Sodium [Moles/Vol] 127 mmol/L Critically low 136-145 [facility] Comment on above: Performed By: #### C VDTBH #### [facility] [address] [address] [address] Grace Abdul Urea nitrogen [Mass/Vol] 18.0 mg/dL Normal 7.0-18.0 [facility] Comment on above: Performed By: #### C VDTBH #### [facility] [address] [address] [address] Grace Abdul Urea nitrogen/Creatinine [Mass ratio] 18.9 mg/mg Normal [facility] Comment on above: Performed By: #### C VDTBH #### [facility] [address] [address] [address] Grace Abdul URINE MICROSCOPIC ONLYon BACTERIA TRACE Abnormal NONE SEEN [facility] Comment on above: Performed By: #### C VDTBH #### [facility] [address] [place] [address] Dr. Grace Abdul Bacteria identified Cx Nom (U) INDICATED Normal [facility] Comment on above: Performed By: #### C VDTBH #### [facility] [address] [place] [address] Dr. Grace Abdul CAST NONE SEEN Normal NONE SEEN [facility] Comment on above: Performed By: #### C VDTBH #### [facility] [address] [place] [address] Dr. Grace Abdul Crystals LM Nom (Urine sed) NONE SEEN Normal NONE SEEN [facility] Comment on above: Performed By: #### C VDTBH #### [facility] [address] [place] [address] Dr. Grace Abdul Epithelial cells LM Ql (Urine sed) FEW Abnormal NONE SEEN /RARE [facility] Comment on above: Performed By: #### C VDTBH #### [facility] [address] [place] [address] Dr. Grace Abdul MUCOUS NONE SEEN Normal NONE SEEN [facility] Comment on above: Performed By: #### C VDTBH #### [facility] [address] [place] [address] Dr. Grace Abdul RBC 2-5 Abnormal 0-2 [facility] Comment on above: Performed By: #### C VDTBH #### [facility] [address] [place] [address] Dr. Grace Abdul WBC 5-10 Abnormal NONE SEEN [facility] Comment on above: Performed By: #### C VDTBH #### [facility] [address] [place] [address] Dr. Grace Abdul AMYLASEon 11-15-2021 Amylase [Catalytic activity/Vol] 94 U/L Normal 25-115 [facility] Comment on above: Performed By: #### C VDTBH #### [facility] [address] [place] [address] Dr. Grace Abdul BNPon 11-15-2021 Natriuretic peptide B (Bld) [Mass/Vol] 357.0 pg/mL Normal <=1,800.0 [facility] Comment on above: Performed By: #### C VDTBH #### [facility] [address] [place] [address] Dr. Grace Abdul CARDIAC JOVITA ADMITon 022 CK [Catalytic activity/Vol] 66 U/L Normal 26-192 [facility] Comment on above: Performed By: #### C VDTBH #### [facility] [address] [place] [address] Dr. Grace Abdul CK.MB [Mass/Vol] 2.19 ng/mL Normal <=3.60 [facility] Comment on above: Performed By: #### C VDTBH #### [facility] [address] [place] [address] Dr. Grace Abdul HSTROP 9.5 pg/mL Normal 4.0-51.3 [facility] Comment on above: Result Comment: CUT- OFF POINTS HAVE BEEN ESTABLISHED BASED ON THE FOURTH UNIVERSAL DEFINITIONS OF MYOCARDIAL INFARCTION. THE UPPER REFERENCE LIMIT (URL) OF TROPONIN, DEFINED THE 99TH PERCENTILE OF cTnI DISTRIBUTION IN A REFERENCE POPULATION, HAS BEEN CONFIRMED THE DECISION THRESHOLD FOR AL DIAGNOSIS. Performed By: #### C VDTBH #### [facility] [address] [place] [address] Dr. Grace Abdul JOHNNA 73 ng/mL Normal 9-82 [facility] Comment on above: Performed By: #### C VDTBH #### [facility] [address] [place] [address] Dr. Grace Abdul CBC AUTO DIFFon 11-15-2021 BASO # 0.0 103/ul Normal 0.0-0.1 [facility] Comment on above: Performed By: #### B MP #### [facility] [address] [place] [address] Dr. Grace Abdul Basophils/100 WBC (Bld) 0.1 % Critically low 0.2-2.0 [facility] Comment on above: Performed By: #### B MP #### [facility] [address] [place] [address] Dr. Grace Abdul EO # 0.0 103/ul Normal 0.0-0.7 [facility] Comment on above: Performed By: #### B MP #### [facility] [address] [place] [address] Dr. Grace Abdul Eosinophils/100 WBC (Bld) 0.1 % Critically low 0.9-7.0 [facility] Comment on above: Performed By: #### B MP #### [facility] [address] [place] [address] Dr. Grace Abdul Erythrocyte distribution width (RBC) [Ratio] 11.9 % Normal 11.0-15.0 [facility] Comment on above: Performed By: #### B MP #### [facility] [address] [place] [address] Dr. Grace Abdul Hematocrit (Bld) [Volume fraction] 36.6 % Normal 36.0-48.0 [facility] Comment on above: Performed By: #### B MP #### [facility] [address] [place] [address] Dr. Grace Abdul Hemoglobin (Bld) [Mass/Vol] 13.2 g/dL Normal 12.0-16.0 [facility] Comment on above: Performed By: #### B MP #### [facility] [address] [place] [address] Dr. Grace Abdul IG # 0.05 10e3/ul Critically high 0.00-0.03 [facility] Comment on above: Performed By: #### B MP #### [facility] [address] [place] [address] Dr. Grace Abdul IG % 0.7 % Critically high 0.0-0.5 [facility] Comment on above: Performed By: #### B MP #### [facility] [address] [place] [address] Dr. Grace Abdul LYMPH # 0.7 103/ul Critically low 1.2-3.[address] [facility] Comment on above: Performed By: #### B MP #### [facility] [address] [place] [address] Dr. Grace Abdul Lymphocytes/100 WBC (Bld) 9.8 % Critically low 20.5-60.0 [facility] Comment on above: Performed By: #### B MP #### [facility] [address] [place] [address] Dr. Grace Abdul MANUAL DIFF REQ NO Normal [facility] Comment on above: Performed By: #### B MP #### [facility] [address] [place] [address] Dr. Grace Abdul MCH (RBC) [Entitic mass] 31.5 pg Normal 26.7-34.0 [facility] Comment on above: Performed By: #### B MP #### [facility] [address] [place] [address] Dr. Grace Abdul MCHC (RBC) [Mass/Vol] 36.1 g/dL Critically high 29.9-35.2 [facility] Comment on above: Performed By: #### B MP #### [facility] [address] [place] [address] Dr. Grace Abdul MCV (RBC) [Entitic vol] 87.4 fL Normal 81.0-99.0 [facility] Comment on above: Performed By: #### B MP #### [facility] [address] [place] [address] Dr. Grace Abdul MONO # 0.9 103/ul Critically high 0.3-0.8 [facility] Comment on above: Performed By: #### B MP #### [facility] [address] [place] [address] Dr. Grace Abdul Monocytes/100 WBC (Bld) 12.4 % Critically high 1.7-12.0 [facility] Comment on above: Performed By: #### B MP #### [facility] [address] [place] [address] Dr. Grace Abdul NEUT # 5.8 103/ul Normal 1.4-6.5 [facility] Comment on above: Performed By: #### B MP #### [facility] [address] [place] [address] Dr. Grace Abdul Neutrophils/100 WBC (Bld) 76.9 % Critically high 43.0-75.0 [facility] Comment on above: Performed By: #### B MP #### [facility] [address] [place] [address] Dr. Grace Abdul Platelet mean volume (Bld) [Entitic vol] 9.0 fL Critically low 9.5-13.5 [facility] Comment on above: Performed By: #### B MP #### [facility] [address] [place] [address] Dr. Grace Abdul PLT 361 103/ul Normal 150-450 [facility] Comment on above: Performed By: #### B MP #### [facility] [address] [address] [address] Grace Abdul RBC 4.19 106/ul Critically low 4.20-5.40 [facility] Comment on above: Performed By: #### B MP #### [facility] [address] [place] [address] Dr. Grace Abdul WBC 7.6 103/ul Normal 4.0-11.0 [facility] Comment on above: Performed By: #### B MP #### [facility] [address] [place] [address] Dr. Grace Abdul Covid-19 PCR ([facility])on 10-23 SARS-CoV-2 (COVID-19) RNA LUISITO+probe Ql (Unsp spec) Not detected Normal NOT DETECTED [facility] Comment on above: Result Comment: [...] for this test is supported by the Local Telephone Operator of Health and Human Service's declaration [...] used). Performed By: #### C VDTBH #### [facility] [address] [place] [address] Dr. Grace Abdul LIPASEon 11-15-2021 Lipase [Catalytic activity/Vol] 178.0 U/L Normal 73.0-393.0 [facility] Comment on above: Performed By: #### C VDTBH #### [facility] [address] [place] [address] Dr. Grace Abdul PROF 14(COMP METB)on 022 Albumin [Mass/Vol] 4.1 g/dL Normal 3.4-5.0 [facility] Comment on above: Performed By: #### C VDTBH #### [facility] [address] [place] [address] Dr. Grace Abdul Albumin/Globulin [Mass ratio] 1.2 {ratio} Normal [facility] Comment on above: Performed By: #### C VDTBH #### [facility] [address] [place] [address] Dr. Grace Abdul ALP [Catalytic activity/Vol] 63 U/L Normal 46-116 [facility] Comment on above: Performed By: #### C VDTBH #### [facility] [address] [place] [address] Dr. Grace Abdul ALT [Catalytic activity/Vol] 29 U/L Normal 14-59 [facility] Comment on above: Performed By: #### C VDTBH #### [facility] [address] [place] [address] Dr. Grace Abdul Anion gap [Moles/Vol] 14.8 mmol/L Normal [facility] Comment on above: Performed By: #### C VDTBH #### [facility] [address] [place] [address] Dr. Grace Abdul AST [Catalytic activity/Vol] 25 U/L Normal 15-37 [facility] Comment on above: Performed By: #### C VDTBH #### [facility] [address] [address] [address] Grace Abdul Bilirubin [Mass/Vol] 0.6 mg/dL Normal 0.2-1.0 [facility] Comment on above: Performed By: #### C VDTBH #### [facility] [address] [address] [address] Grace Abdul Calcium [Mass/Vol] 9.4 mg/dL Normal 8.5-10.1 [facility] Comment on above: Performed By: #### C VDTBH #### [facility] [address] [address] [address] Grace Abdul Chloride [Moles/Vol] 83 mmol/L Critically low 98-107 [facility] Comment on above: Performed By: #### C VDTBH #### [facility] [address] [place] [address] Dr. Grace Abdul CO2 [Moles/Vol] 24.4 mmol/L Normal 21.0-32.0 [facility] Comment on above: Performed By: #### C VDTBH #### [facility] [address] [address] [address] Grace Abdul Creatinine [Mass/Vol] 1.15 mg/dL Critically high 0.55-1.02 [facility] Comment on above: Performed By: #### C VDTBH #### [facility] [address] [address] [address] Grace Abdul EGFR-AF CROATIAN 55 mL/min/1.73m2 Critically low >=60 [facility] Comment on above: Performed By: #### C VDTBH #### [facility] [address] [address] [address] Grace Abdul EGFR-NON AF CROATIAN 45 mL/min/1.73m2 Critically low >=60 [facility] Comment on above: Performed By: #### C VDTBH #### [facility] [address] [address] [address] Grace Abdul Globulin (S) [Mass/Vol] 3.4 g/dL Normal [facility] Comment on above: Performed By: #### C VDTBH #### [facility] [address] [place] [address] Dr. Grace Abdul Glucose [Mass/Vol] 147 mg/dL Critically high 74-106 T [facility] Comment on above: Performed By: #### C VDTBH #### [facility] [address] [place] [address] Dr. Grace Abdul Potassium [Moles/Vol] 3.2 mmol/L Critically low 3.5-5.1 [facility] Comment on above: Performed By: #### C VDTBH #### [facility] [address] [place] [address] Dr. Grace Abdul Protein [Mass/Vol] 7.5 g/dL Normal 6.4-8.2 [facility] Comment on above: Performed By: #### C VDTBH #### [facility] [address] [place] [address] Dr. Grace Abdul Urea nitrogen/Creatinine [Mass ratio] 21.7 mg/mg Normal [facility] Comment on above: Performed By: #### C VDTBH #### [facility] [address] [place] [address] Dr. Grace Abdul PROF CHEM 8 (BAS METB)on Anion gap [Moles/Vol] 13.6 mmol/L Normal [facility] Comment on above: Performed By: #### C VDTBH #### [facility] [address] [place] [address] Dr. Grace Abdul Calcium [Mass/Vol] 8.8 mg/dL Normal 8.5-10.1 [facility] Comment on above: Performed By: #### C VDTBH #### [facility] [address] [place] [address] Dr. Grace Abdul Chloride [Moles/Vol] 88 mmol/L Critically low 98-107 [facility] Comment on above: Performed By: #### C VDTBH #### [facility] [address] [place] [address] Dr. Grace Abdul CO2 [Moles/Vol] 21.8 mmol/L Normal 21.0-32.0 [facility] Comment on above: Performed By: #### C VDTBH #### [facility] [address] [place] [address] Dr. Grace Abdul Creatinine [Mass/Vol] 1.11 mg/dL Critically high 0.55-1.02 [facility] Comment on above: Performed By: #### C VDTBH #### [facility] [address] [place] [address] Dr. Grace Abdul EGFR-AF CROATIAN 57 mL/min/1.73m2 Critically low >=60 [facility] Comment on above: Performed By: #### C VDTBH #### [facility] [address] [place] [address] Dr. Grace Abdul EGFR-NON AF CROATIAN 47 mL/min/1.73m2 Critically low >=60 [facility] Comment on above: Performed By: #### C VDTBH #### [facility] [address] [place] [address] Dr. Grace Abdul Glucose [Mass/Vol] 132 mg/dL Critically high 74-106 T [facility] Comment on above: Performed By: #### C VDTBH #### [facility] [address] [place] [address] Dr. Grace Abdul Potassium [Moles/Vol] 3.4 mmol/L Critically low 3.5-5.1 [facility] Comment on above: Performed By: #### C VDTBH #### [facility] [address] [place] [address] Dr. Grace Abdul Sodium [Moles/Vol] 120 mmol/L Critically low 136-145 Th [facility] Comment on above: Result Comment: Test Repeated. Critical Value Verified Performed By: #### C VDTBH #### [facility] [address] [place] [address] Dr. Grace Abdul Urea nitrogen [Mass/Vol] 25.0 mg/dL Critically high 7.0-18.0 [facility] Comment on above: Performed By: #### C VDTBH #### [facility] [address] [address] [address] Grace Abdul Urea nitrogen/Creatinine [Mass ratio] 22.5 mg/mg Normal [facility] Comment on above: Performed By: #### C VDTBH #### [facility] [id number] Grace Abdul PROTIMEon 11-15-2021 INR Coag (PPP) [Relative time] 0.94 {INR} Normal [facility] Comment on above: Performed By: #### C VDTBH #### [facility] [address] [place] [address] Dr. Grace Abdul INR GUIDELINES SEE BELOW Normal [facility] Comment on above: Result Comment: DURAN RED INR: 2.0 - 3.0 CONDITIONS NOT LISTED BELOW 2.5 - 3.5 FOR PROSTHETIC HEART VALVE REPLACEMENT 2.5 - 3.5 RECURRENT THROMBOSIS Performed By: #### C VDTBH #### [facility] [address] [place] [address] Dr. Grace Abdul PT Coag (PPP) [Time] 10.2 s Normal 9.0-11.6 [facility] Comment on above: Performed By: #### C VDTBH #### [facility] [address] [place] [address] Dr. Grace Abdul XR ABD FLAT UP_PA [...] JARET LINARES Date: 2021-11-15 13:56 Normal [facility] BNPon 11-11-2021 Natriuretic peptide B (Bld) [Mass/Vol] 546.0 pg/mL Normal <=1,800.0 [facility] Comment on above: Performed By: #### C MP, TSH, HSTROPN, BNP ####[facility] [id number] [id number] Grace Abdul CBC AUTO DIFFon 11-11-2021 BASO # 0.0 103/ul Normal 0.0-0.1 [facility] Comment on above: Performed By: #### C BC #### [facility] [address] [address] [address] Grace Abdul Basophils/100 WBC (Bld) 0.3 % Normal 0.2-2.0 [facility] Comment on above: Performed By: #### C BC #### [facility] [address] [place] [address] Dr. Grace Abdul EO # 0.0 103/ul Normal 0.0-0.7 [facility] Comment on above: Performed By: #### C BC #### [facility] [address] [place] [address] Dr. Grace Abdul Eosinophils/100 WBC (Bld) 0.5 % Critically low 0.9-7.0 [facility] Comment on above: Performed By: #### C BC #### [facility] [address] [place] [address] Dr. Grace Abdul Erythrocyte distribution width (RBC) [Ratio] 12.9 % Normal 11.0-15.0 [facility] Comment on above: Performed By: #### C BC #### [facility] [address] [place] [address] Dr. Grace Abdul Hematocrit (Bld) [Volume fraction] 36.1 % Normal 36.0-48.0 [facility] Comment on above: Performed By: #### C BC #### [facility] [address] [place] [address] Dr. Grace Abdul Hemoglobin (Bld) [Mass/Vol] 12.3 g/dL Normal 12.0-16.0 [facility] Comment on above: Performed By: #### C BC #### [facility] [address] [place] [address] Dr. Grace Abdul IG # 0.01 10e3/ul Normal 0.00-0.03 [facility] Comment on above: Performed By: #### C BC #### [facility] [address] [place] [address] Dr. Grace Abdul IG % 0.3 % Normal 0.0-0.5 [facility] Comment on above: Performed By: #### C BC #### [facility] [address] [place] [address] Dr. Grace Abdul LYMPH # 0.6 103/ul Critically low 1.2-3.8 [facility] Comment on above: Performed By: #### C BC #### [facility] [address] [place] [address] Dr. Grace Abdul Lymphocytes/100 WBC (Bld) 14.8 % Critically low 20.5-60.0 [facility] Comment on above: Performed By: #### C BC #### [facility] [address] [place] [address] Dr. Grace Abdul MANUAL DIFF REQ NO Normal [facility] Comment on above: Performed By: #### C BC #### [facility] [address] [place] [address] Dr. Grace Abdul MCH (RBC) [Entitic mass] 31.5 pg Normal 26.7-34.0 [facility] Comment on above: Performed By: #### C BC #### [facility] [address] [place] [address] Dr. Grace Abdul MCHC (RBC) [Mass/Vol] 34.1 g/dL Normal 29.9-35.2 [facility] Comment on above: Performed By: #### C BC #### [facility] [address] [place] [address] Dr. Grace Abdul MCV (RBC) [Entitic vol] 92.6 fL Normal 81.0-99.0 [facility] Comment on above: Performed By: #### C BC #### [facility] [address] [place] [address] Dr. Grace Abdul MONO # 0.5 103/ul Normal 0.3-0.8 [facility] Comment on above: Performed By: #### C BC #### [facility] [address] [place] [address] Dr. Grace Abdul Monocytes/100 WBC (Bld) 13.5 % Critically high 1.7-12.0 [facility] Comment on above: Performed By: #### C BC #### [facility] [address] [place] [address] Dr. Grace Abdul NEUT # 2.7 103/ul Normal 1.4-6.5 [facility] Comment on above: Performed By: #### C BC #### [facility] [address] [place] [address] Dr. Grace Abdul Neutrophils/100 WBC (Bld) 70.6 % Normal 43.0-75.0 [facility] Comment on above: Performed By: #### C BC #### [facility] [address] [place] [address] Dr. Grace Abdul Platelet mean volume (Bld) [Entitic vol] 9.2 fL Critically low 9.5-13.5 [facility] Comment on above: Performed By: #### C BC #### [facility] [address] [place] [address] Dr. Grace Abdul PLT 279 103/ul Normal 150-450 [facility] Comment on above: Performed By: #### C BC #### [facility] [address] [place] [address] Dr. Grace Abdul RBC 3.90 106/ul Critically low 4.20-5.40 [facility] Comment on above: Performed By: #### C BC #### [facility] [address] [place] [address] Dr. Grace Abdul WBC 3.9 103/ul Critically low 4.0-11.[address] [facility] Comment on above: Performed By: #### C BC #### [facility] [address] [place] [address] Dr. Grace Abdul PROF 14(COMP METB)on 022 Albumin [Mass/Vol] 3.3 g/dL Critically low 3.4-5.0 Th e [facility] Comment on above: Performed By: #### C MP, TSH, HSTROPN, BNP #### [facility] [address] [place] [address] Dr. Grace Abdul Albumin/Globulin [Mass ratio] 1.2 {ratio} Normal [facility] Comment on above: Performed By: #### C MP, TSH, HSTROPN, BNP #### [facility] [address] [place] [address] Dr. Grace Abdul ALP [Catalytic activity/Vol] 60 U/L Normal 46-116 [facility] Comment on above: Performed By: #### C MP, TSH, HSTROPN, BNP #### [facility] [address] [place] [address] Dr. Grace Abdul ALT [Catalytic activity/Vol] 26 U/L Normal 14-59 [facility] Comment on above: Performed By: #### C MP, TSH, HSTROPN, BNP #### [facility] [address] [place] [address] Dr. Grace Abdul Anion gap [Moles/Vol] 14.8 mmol/L Normal [facility] Comment on above: Performed By: #### C MP, TSH, HSTROPN, BNP #### [facility] [address] [place] [address] Dr. Grace Abdul AST [Catalytic activity/Vol] 20 U/L Normal 15-37 [facility] Comment on above: Performed By: #### C MP, TSH, HSTROPN, BNP #### [facility] [address] [place] [address] Dr. Grace Abdul Bilirubin [Mass/Vol] 0.3 mg/dL Normal 0.2-1.0 [facility] Comment on above: Performed By: #### C MP, TSH, HSTROPN, BNP #### [facility] [address] [place] [address] Dr. Grace Abdul Calcium [Mass/Vol] 8.2 mg/dL Critically low 8.5-10.1 Th e [facility] Comment on above: Performed By: #### C MP, TSH, HSTROPN, BNP #### [facility] [address] [place] [address] Dr. Grace Abdul Chloride [Moles/Vol] 100 mmol/L Normal 98-107 [facility] Comment on above: Performed By: #### C MP, TSH, HSTROPN, BNP #### [facility] [address] [place] [address] Dr. Grace Abdul CO2 [Moles/Vol] 23.8 mmol/L Normal 21.0-32.0 [facility] Comment on above: Performed By: #### C MP, TSH, HSTROPN, BNP #### [facility] [address] [place] [address] Dr. Grace Abdul Creatinine [Mass/Vol] 1.27 mg/dL Critically high 0.55-1.02 [facility] Comment on above: Performed By: #### C MP, TSH, HSTROPN, BNP #### [facility] [address] [place] [address] Dr. Grace Abdul EGFR-AF CROATIAN 49 mL/min/1.73m2 Critically low >=60 [facility] Comment on above: Performed By: #### C MP, TSH, HSTROPN, BNP #### [facility] [address] [place] [address] Dr. Grace Abdul EGFR-NON AF CROATIAN 40 mL/min/1.73m2 Critically low >=60 [facility] Comment on above: Performed By: #### C MP, TSH, HSTROPN, BNP #### [facility] [address] [place] [address] Dr. Grace Abdul Globulin (S) [Mass/Vol] 2.7 g/dL Normal [facility] Comment on above: Performed By: #### C MP, TSH, HSTROPN, BNP #### [facility] [address] [place] [address] Dr. Grace Abdul Glucose [Mass/Vol] 116 mg/dL Critically high 74-106 T [facility] Comment on above: Performed By: #### C MP, TSH, HSTROPN, BNP #### [facility] [address] [address] [address] Grace Abdul Potassium [Moles/Vol] 3.6 mmol/L Normal 3.5-5.1 [facility] Comment on above: Performed By: #### C MP, TSH, HSTROPN, BNP #### [facility] [address] [place] [address] Dr. Grace Abdul Protein [Mass/Vol] 6.0 g/dL Critically low 6.4-8.2 Th [facility] Comment on above: Performed By: #### C MP, TSH, HSTROPN, BNP #### [facility] [address] [place] [address] Dr. Grace Abdul Sodium [Moles/Vol] 135 mmol/L Critically low 136-145 Th [facility] Comment on above: Performed By: #### C MP, TSH, HSTROPN, BNP #### [facility] [address] [place] [address] Dr. Grace Abdul Urea nitrogen [Mass/Vol] 25.0 mg/dL Critically high 7.0-18.0 [facility] Comment on above: Performed By: #### C MP, TSH, HSTROPN, BNP #### [facility] [address] [place] [address] Dr. Grace Abdul Urea nitrogen/Creatinine [Mass ratio] 19.7 mg/mg Normal [facility] Comment on above: Performed By: #### C MP, TSH, HSTROPN, BNP #### [facility] [address] [place] [address] Dr. Grace Abdul PROTIMEon 11-11-2021 INR Coag (PPP) [Relative time] 0.95 {INR} Normal [facility] Comment on above: Performed By: #### B MP #### [facility] [address] [place] [address] Dr. Grace Abdul INR GUIDELINES SEE BELOW Normal [facility] Comment on above: Result Comment: DURAN RED INR: 2.0 - 3.0 CONDITIONS NOT LISTED BELOW 2.5 - 3.5 FOR PROSTHETIC HEART VALVE REPLACEMENT 2.5 - 3.5 RECURRENT THROMBOSIS Performed By: #### B MP #### [facility] [address] [address] [address] Grace Abdul PT Coag (PPP) [Time] 10.3 s Normal 9.0-11.6 [facility] Comment on above: Performed By: #### B MP #### [facility] [id number] Grace Abdul PTTon 11-11-2021 aPTT Coag (Bld) [Time] 21.3 s Critically low 22.3-36.2 [facility] Comment on above: Performed By: #### B MP #### [facility] [address] [address] [address] Grace Abdul TROPONIN, HIGH SENSITIVITYon 11-11-2021 HSTROP 6.5 pg/mL Normal 4.0-51.3 [facility] Comment on above: Result Comment: CUT- OFF POINTS HAVE BEEN ESTABLISHED BASED ON THE FOURTH UNIVERSAL DEFINITIONS OF MYOCARDIAL INFARCTION. THE UPPER REFERENCE LIMIT (URL) OF TROPONIN, DEFINED THE 99TH PERCENTILE OF cTnI DISTRIBUTION IN A REFERENCE POPULATION, HAS BEEN CONFIRMED THE DECISION THRESHOLD FOR AL DIAGNOSIS. Performed By: #### C MP, TSH, HSTROPN, BNP #### [facility] [id number] Grace Abdul TSHon 11-11-2021 TSH 2.140 uIU/mL Normal 0.358-3.740 [facility] Comment on above: Performed By: #### C MP, TSH, HSTROPN, BNP ####[facility] [id number] [place], [place] [id number]. Grace Abdul XR CHEST 1 Von 11-11-2021 [...] KRANTHI CONNORS Date: 2021-11-11 13:34 Normal [facility] CARDIAC JOVITA ADMITon 022 CK [Catalytic activity/Vol] 89 U/L Normal 26-192 [facility] Comment on above: Performed By: #### C VDTBH #### [facility] [address] [place] [address] Dr. Grace Abdul CK.MB [Mass/Vol] 1.92 ng/mL Normal <=3.60 [facility] Comment on above: Performed By: #### C VDTBH #### [facility] [address] [place] [address] Dr. Grace Abdul HSTROP 5.7 pg/mL Normal 4.0-51.3 [facility] Comment on above: Result Comment: CUT- OFF POINTS HAVE BEEN ESTABLISHED BASED ON THE FOURTH UNIVERSAL DEFINITIONS OF MYOCARDIAL INFARCTION. THE UPPER REFERENCE LIMIT (URL) OF TROPONIN, DEFINED THE 99TH PERCENTILE OF cTnI DISTRIBUTION IN A REFERENCE POPULATION, HAS BEEN CONFIRMED THE DECISION THRESHOLD FOR AL DIAGNOSIS. Performed By: #### C VDTBH #### [facility] [address] [place] [address] Dr. Grace Abdul JOHNNA 86 ng/mL Critically high 9-82 [facility] Comment on above: Performed By: #### C VDTBH #### [facility] [address] [place] [address] Dr. Grace Abdul CBC AUTO DIFFon 09-13-2021 BASO # 0.0 103/ul Normal 0.0-0.1 [facility] Comment on above: Performed By: #### C VDTBH #### [facility] [address] [place] [address] Dr. Grace Abdul Basophils/100 WBC (Bld) 0.5 % Normal 0.2-2.0 [facility] Comment on above: Performed By: #### C VDTBH #### [facility] [address] [place] [address] Dr. Grace Abdul EO # 0.0 103/ul Normal 0.0-0.7 [facility] Comment on above: Performed By: #### C VDTBH #### [facility] [address] [place] [address] Dr. Grace Abdul Eosinophils/100 WBC (Bld) 0.7 % Critically low 0.9-7.0 [facility] Comment on above: Performed By: #### C VDTBH #### [facility] [address] [place] [address] Dr. rGace Abdul Erythrocyte distribution width (RBC) [Ratio] 13.2 % Normal 11.0-15.0 [facility] Comment on above: Performed By: #### C VDTBH #### [facility] [address] [place] [address] Dr. Grace Abdul Hematocrit (Bld) [Volume fraction] 34.8 % Critically low 36.0-48.0 [facility] Comment on above: Performed By: #### C VDTBH #### [facility] [address] [place] [address] Dr. Grace Abdul Hemoglobin (Bld) [Mass/Vol] 11.9 g/dL Critically low 12.0-16.0 [facility] Comment on above: Performed By: #### C VDTBH #### [facility] [address] [place] [address] Dr. Grace Abdul IG # 0.01 10e3/ul Normal 0.00-0.03 [facility] Comment on above: Performed By: #### C VDTBH #### [facility] [address] [place] [address] Dr. Grace Abdul IG % 0.2 % Normal 0.0-0.5 [facility] Comment on above: Performed By: #### C VDTBH #### [facility] [address] [place] [address] Dr. Grace Abdul LYMPH # 0.6 103/ul Critically low 1.2-3.[address] [facility] Comment on above: Performed By: #### C VDTBH #### [facility] [address] [place] [address] Dr. Grace Abdul Lymphocytes/100 WBC (Bld) 14.2 % Critically low 20.5-60.0 [facility] Comment on above: Performed By: #### C VDTBH #### [facility] [address] [place] [address] Dr. Grace Abdul MANUAL DIFF REQ NO Normal [facility] Comment on above: Performed By: #### C VDTBH #### [facility] [address] [place] [address] Dr. Grace Abdul MCH (RBC) [Entitic mass] 31.5 pg Normal 26.7-34.0 [facility] Comment on above: Performed By: #### C VDTBH #### [facility] [address] [place] [address] Dr. Grace Abdul MCHC (RBC) [Mass/Vol] 34.2 g/dL Normal 29.9-35.2 [facility] Comment on above: Performed By: #### C VDTBH #### [facility] [address] [place] [address] Dr. Grace Abdul MCV (RBC) [Entitic vol] 92.1 fL Normal 81.0-99.0 [facility] Comment on above: Performed By: #### C VDTBH #### [facility] [address] [place] [address] Dr. Grcae Abdul MONO # 0.7 103/ul Normal 0.3-0.8 [facility] Comment on above: Performed By: #### C VDTBH #### [facility] [address] [place] [address] Dr. Grace Abdul Monocytes/100 WBC (Bld) 15.6 % Critically high 1.7-12.0 [facility] Comment on above: Performed By: #### C VDTBH #### [facility] [address] [place] [address] Dr. Grace Abdul NEUT # 3.0 103/ul Normal 1.4-6.5 [facility] Comment on above: Performed By: #### C VDTBH #### [facility] [address] [address] [address] Grace Abdul Neutrophils/100 WBC (Bld) 68.8 % Normal 43.0-75.0 [facility] Comment on above: Performed By: #### C VDTBH #### [facility] [address] [address] [address] Grace Abdul Platelet mean volume (Bld) [Entitic vol] 9.5 fL Normal 9.5-13.5 [facility] Comment on above: Performed By: #### C VDTBH #### [facility] [address] [address] [address] Grace Abdul PLT 303 103/ul Normal 150-450 [facility] Comment on above: Performed By: #### C VDTBH #### [facility] [address] [place] [address] Dr. Grace Abdul RBC 3.78 106/ul Critically low 4.20-5.40 [facility] Comment on above: Performed By: #### C VDTBH #### [facility] [address] [place] [address] Dr. Grace Abdul WBC 4.4 103/ul Normal 4.0-11.0 [facility] Comment on above: Performed By: #### C VDTBH #### [facility] [address] [place] [address] HEAD WO CONon [...] KRANTHI CONNORS Date: 2021-09-13 13:24 Normal [facility] Covid-19 PCR (CVDTB)on 08-22 SARS-CoV-2 (COVID-19) RNA LUISITO+probe Ql (Unsp spec) Not detected Normal NOT DETECTED [facility] Comment on above: Result Comment: [...] for this test is supported by the Local Telephone Operator of Health and Human Service's declaration [...] used). Performed By: #### C VDTBH #### [facility] [address] [place] [address] Dr. Grace Abdul ER URINE PROFILEon 2 Bilirubin Ql (U) Negative Normal NEGATIVE [facility] Comment on above: Performed By: #### B MP #### [facility] [address] [place] [address] Dr. Grace Abdul Clarity (U) CLEAR Normal CLEAR [facility] Comment on above: Performed By: #### B MP #### [facility] [address] [place] [address] Dr. Grace Abdul Color (U) LT. YELLOW Normal YELLOW [facility] Comment on above: Performed By: #### B MP #### [facility] [address] [place] [address] Dr. Grace Abdul ERUAHD A micrscopic examination will be performed if indicated. Normal [facility] Comment on above: Performed By: #### B MP #### [facility] [address] [address] [address] Grace Abdul Glucose Ql (U) Negative Normal NEGATIVE [facility] Comment on above: Performed By: #### B MP #### [facility] [address] [address] [address] Grace Abdul Hemoglobin Ql (U) Negative Normal NEGATIVE [facility] Comment on above: Performed By: #### B MP #### [facility] [address] [address] [address] Grace Abdul Ketones Ql (U) TRACE Abnormal NEGATIVE [facility] Comment on above: Performed By: #### B MP #### [facility] [address] [place] [address] Dr. Grace Abdul LEUKOCYTES TRACE Abnormal NEGATIVE [facility] Comment on above: Performed By: #### B MP #### [facility] [address] [place] [address] Dr. Grace Abdul Nitrite Ql (U) Negative Normal NEGATIVE [facility] Comment on above: Performed By: #### B MP #### [facility] [address] [place] [address] Dr. Grace Abdul pH (U) 8.0 [pH] Normal 5-9 [facility] Comment on above: Performed By: #### B MP #### [facility] [address] [place] [address] Dr. Grace Abdul SPEC GRAVITY 1.015 Normal 1.005-<=1.025 [facility] Comment on above: Performed By: #### B MP #### [facility] [address] [address] [address] Grace Abdul UA PROTEIN Negative Normal NEGATIVE/ TRACE [facility] Comment on above: Performed By: #### B MP #### [facility] [address] [place] [address] Dr. Grace Abdul UR MICRO IND INDICATED Normal [facility] Comment on above: Performed By: #### B MP #### [facility] [address] [place] [address] Dr. Grace Abdul Urobilinogen Qn (U) 0.2 {Ashley'U}/dL Normal 0.2 - 1. 0 [facility] Comment on above: Performed By: #### B #### [facility] [address] [place] [address] Dr. Grace Abdul PROF 14(COMP METB)on 022 Albumin [Mass/Vol] 3.8 g/dL Normal 3.4-5.0 [facility] Comment on above: Performed By: #### C VDTBH #### [facility] [address] [place] [address] Dr. Grace Abdul Albumin/Globulin [Mass ratio] 1.4 {ratio} Normal [facility] Comment on above: Performed By: #### C VDTBH #### [facility] [address] [place] [address] Dr. Grace Abdul ALP [Catalytic activity/Vol] 53 U/L Normal 46-116 [facility] Comment on above: Performed By: #### C VDTBH #### [facility] [address] [place] [address] Dr. Grace Abdul ALT [Catalytic activity/Vol] 20 U/L Normal 14-59 [facility] Comment on above: Performed By: #### C VDTBH #### [facility] [address] [place] [address] Dr. Grace Abdul Anion gap [Moles/Vol] 12.0 mmol/L Normal [facility] Comment on above: Performed By: #### C VDTBH #### [facility] [address] [place] [address] Dr. Grace Abdul AST [Catalytic activity/Vol] 18 U/L Normal 15-37 [facility] Comment on above: Performed By: #### C VDTBH #### [facility] [address] [place] [address] Dr. Grace Abdul Bilirubin [Mass/Vol] 0.4 mg/dL Normal 0.2-1.0 [facility] Comment on above: Performed By: #### C VDTBH #### [facility] [address] [address] [address] Grace Abdul Calcium [Mass/Vol] 9.5 mg/dL Normal 8.5-10.1 [facility] Comment on above: Performed By: #### C VDTBH #### [facility] [address] [address] [address] Grace Abdul Chloride [Moles/Vol] 99 mmol/L Normal 98-107 [facility] Comment on above: Performed By: #### C VDTBH #### [facility] [address] [address] [address] Grace Abdul CO2 [Moles/Vol] 28.1 mmol/L Normal 21.0-32.0 [facility] Comment on above: Performed By: #### C VDTBH #### [facility] [address] [place] [address] Dr. Grace Abdul Creatinine [Mass/Vol] 1.25 mg/dL Critically high 0.55-1.02 [facility] Comment on above: Performed By: #### C VDTBH #### [facility] [address] [address] [address] Grace Abdul EGFR-AF CROATIAN 50 mL/min/1.73m2 Critically low >=60 [facility] Comment on above: Performed By: #### C VDTBH #### [facility] [address] [address] [address] Grace Abdul EGFR-NON AF CROATIAN 41 mL/min/1.73m2 Critically low >=60 [facility] Comment on above: Performed By: #### C VDTBH #### [facility] [address] [address] [address] Grace Abdul Globulin (S) [Mass/Vol] 2.7 g/dL Normal [facility] Comment on above: Performed By: #### C VDTBH #### [facility] [address] [address] [address] Grace Abdul Glucose [Mass/Vol] 131 mg/dL Critically high 74-106 [facility] Comment on above: Performed By: #### C VDTBH #### [facility] [address] [place] [address] Dr. Grace Abdul Potassium [Moles/Vol] 4.1 mmol/L Normal 3.5-5.1 [facility] Comment on above: Performed By: #### C VDTBH #### [facility] [address] [place] [address] Dr. Grace Abdul Protein [Mass/Vol] 6.5 g/dL Normal 6.4-8.2 [facility] Comment on above: Performed By: #### C VDTBH #### [facility] [address] [place] [address] Dr. Grace Abdul Sodium [Moles/Vol] 135 mmol/L Critically low 136-145 [facility] Comment on above: Performed By: #### C VDTBH #### [facility] [address] [place] [address] Dr. Grace Abdul Urea nitrogen [Mass/Vol] 33.0 mg/dL Critically high 7.0-18.0 [facility] Comment on above: Performed By: #### C VDTBH #### [facility] [address] [place] [address] Dr. Grace Abdul Urea nitrogen/Creatinine [Mass ratio] 26.4 mg/mg Normal [facility] Comment on above: Performed By: #### C VDTBH #### [facility] [address] [place] [address] Dr. Grace Abdul URINE MICROSCOPIC ONLYon BACTERIA NONE SEEN Normal NONE SEEN [facility] Comment on above: Performed By: #### C BC #### [facility] [address] [place] [address] Dr. Grace Abdul Bacteria identified Cx Nom (U) NOT INDICATED Normal [facility] Comment on above: Performed By: #### C BC #### [facility] [address] [place] [address] Dr. Grace Abdul CAST NONE SEEN Normal NONE SEEN [facility] Comment on above: Performed By: #### C BC #### [facility] [address] [address] [address] Grace Abdul Crystals LM Nom (Urine sed) NONE SEEN Normal NONE SEEN [facility] Comment on above: Performed By: #### C BC #### [facility] [address] [place] [address] Dr. Grace Abdul Epithelial cells LM Ql (Urine sed) FEW Abnormal NONE SEEN /RARE [facility] Comment on above: Performed By: #### C BC #### [facility] [address] [place] [address] Dr. Grace Abdul MUCOUS NONE SEEN Normal NONE SEEN [facility] Comment on above: Performed By: #### C BC #### [facility] [address] [place] [address] Dr. Grace Abdul RBC 0-2 Normal 0-2 [facility] Comment on above: Performed By: #### C BC #### [facility] [address] [place] [address] Dr. Grace Abdul WBC 0-2 Abnormal NONE SEEN [facility] Comment on above: Performed By: #### C BC #### [facility] [address] [place] [address] Dr. Grace Abdul XR CHEST 1 Von [...] KRANTHI CONNORS Date: 2021-09-13 13:19 Normal [facility] CERV SP W/OBLS/FLEX/EXT 6 OR >on 12-12-2020 CERV SP W/OBLS/FLEX/EXT 6 OR > STUDY: CERV SP W/OBLS/FLEX/EXT 6 OR >; 12/12/2020 9:40 am INDICATION: NECK PAIN. COMPARISON: None. ACCESSION NUMBER(S): [id number] ORDERING CLINICIAN: Aiden Younger TECHNIQUE: AP, lateral, [...] findings. Dense left carotid artery calcifications. Normal [facility] Vital Signs Date Time Vital Sign Value [...] Work Phone: [facility] 05-14-2022 14:22-0400 Body height 152.4 cm Marty Dozier DO Work Phone: [facility] 05-14-2022 14:22-0400 Body weight 76.39 kg Marty Dozier DO Work Phone: [facility] 05-14-2022 14: SaO2% (BldA) [Mass fraction] 99 % Marty Dozier DO Work Phone: [facility] Encounters Encounter Date Encounter Type Care Provider Facility Start: 09-26-2023 End: 09-26-2023 ambulatory Lyn Quiñones MD [facility]: [facility] Start: 09-12-2023 End: 09-12-2023 ambulatory Lyn Quiñones MD Facility: [facility] Start: 08-18-2023 End: 08-18-2023 ambulatory Galina Rogers Facility:[facility] Start: 08-08-2023 End: 08-08-2023 ambulatory COLETTE MATOS [...] Start: 09-21-2022 End: 09-21-2022 ambulatory GALINA ROGERS Facility:[facility] Start: 09-21-2022 End: 09-21-2022 Patient encounter [...] Start: 05-14-2022 End: 05-14-2022 ambulatory MARTY DOZIER Facility:[facility] Start: 05-14-2022 End: 05-14-2022 Patient encounter [...] Facility:[facility] Start: 11-23-2021 End: 11-24-[address] AGLINA ROGERS . Facility:[facility] Start: 11-15-2021 End: 11-17-2021 Evaluation and management of inpatient SHAIKH Zaria CHANEY Facility:[facility] Start: 11-11-2021 End: 11-11-2021 ambulatory ROGE ALEJO . Facility:[facility] Start: 09-30-2021 End: 10-01-[address] NIKO BECKWITH . Facility:[facility] Start: 09-13-2021 End: 09-13-2021 ambulatory ROGE ALEJO . Facility:[facility] Start: 09-12-2017 End: 09-13-2017 Patient encounter DEFAULT PHYSICIAN Facility:[facility] Plan of Treatment Date Care Activity Detail [...] Hospital Start: 04-30-1984 DIABETES SCREEN DIABETES SCREEN [facility] Start: 04-30-1958 Urine microalbumin profile DTAP,TDAP ,TD (1 - Tdap) [facility] Immunizations Immunization Date Immunization Notes Care Provider Fa cility 12-02-2021 Influenza, injectabl e, Madin Vanderbilt Canine Kidney, preservative free, quadrivalent Marty Mendis DO Work Phone: [facility] 11-28-2020 influenza virus vacc ine, unspecified formulation Marty Mendis DO Work Phone: [facility] 11-29-2019 Seasonal trivalent influenza vaccine, adjuvanted, preservative free Marty Guillaumeis DO Work Phone: [facility] 05-27-2017 zoster vaccine, live Marty Dozier DO Work Phone: [facility] 11-12-2016 pneumococcal conjuga te vaccine, 13 valent Marty Mendis DO Work Phone: [facility] Payers Date Payer Category Payer Private Health Insurance [facility] A[facility] SUPPLEMENT [id number] 2022-Present [phone] [address] [place] [address] Indemnity [id number] 2004 Medicare [id number] 2004 Unknown 1959 Medicare [id number] 1959 Self-pay 1959 Unknown [id number] 1939 Unknown [id number] 2.16.840.1.975301.3.579.2 .593 1939 Unknown [id number] 2.16.840.1.091266.3.579.2 .593 1939 Unknown [id number] 2.16.840.1.128621.3.579.2 .593 1939 Unknown [id number] 2.16.840.1.813895.3.579.2 .593 1939 Unknown [id number] 2.16.840.1.110595.3.579.2 .593 1939 Unknown [id number] 2.16.840.1.909414.3.579.2 .593 1939 Unknown [id number] 2.16.840.1.215543.3.579.2 .593 1939 Unknown [id number] 2.16.840.1.914866.3.579.2 .593 1939 Unknown [id number] 2.16.840.1.910390.3.579.2 .593 1939 Unknown [id number] 2.16.840.1.045060.3.579.2 .593 1939 Unknown [id number] 2.16.840.1.407981.3.579.2 .593 1939 Unknown [id number] 2.16.840.1.185427.3.579.2 .593 1939 Unknown [id number] 2.16.840.1.374874.3.579.2 .593 1939 Unknown [id number] 2.16.840.1.891598.3.579.2 .593 1939 Unknown [id number] 2.16.840.1.815907.3.579.2 .593 1939 Unknown [id number] 2.16.840.1.879733.3.579.2 .593 1939 Unknown [id number] 2.16.840.1.281714.3.579.2 .593 1939 Unknown [id number] 2.16.840.1.078496.3.579.2 .593 1939 Unknown [id number] 2.16.840.1.009531.3.579.2 .593 1939 Unknown [id number] 2.16.840.1.993790.3.579.2 .593 1939 Unknown [id number] 2.16.840.1.809423.3.579.2 .593 1939 Unknown [id number] 2.16.840.1.449873.3.579.2 .593 1939 Unknown [id number] 2.16.840.1.011755.3.579.2 .593 1939 Unknown [id number] 2.16.840.1.037993.3.579.2 .593 1939 Unknown [id number] 2.16.840.1.656715.3.579.2 .593 1939 Unknown [id number] 2.16.840.1.121114.3.579.2 .1259 1939 Unknown [id number] 2.16.840.1.540906.3.579.2 .1259 1939 Unknown [id number] 2.16.840.1.423384.3.579.2 .196 1939 Unknown [id number] 2.16.840.1.251807.3.579.2 .196 1939 Unknown [id number] 2.16.840.1.930790.3.579.2 .196 1939 Unknown [id number] 2.16.840.1.404049.3.579.2 .196 1939 Unknown [id number] 2.16.840.1.415100.3.579.2 .196 1939 Unknown [id number] 2.16.840.1.847459.3.579.2 .196 1939 Unknown [id number] 2.16.840.1.013138.3.579.2 .196 1939 Unknown [id number] 2.16.840.1.569781.3.579.2 .196 Social History Date Type Detail Facility Start: 05-14-2022 Tobacco smoking stat us NHIS Never smoked tobacco [facility] Start: 05-14-2022 Tobacco use and exposure Smoke less tobacco non-user [facility] Start: 05-14-2022 End: 09-21-2022 Alcohol intake Lifetime non-drinker (finding) [facility] Start: 1940 Sex Assigned At Not on file [facility] Start: 05-09-2022 End: 09-21-2022 History of Social function [facility] Start: 05-09-2022 End: 09-21-2022 Tobacco use panel [facility] Adult Depression Scr eening Assessment 2 [facility] Clinical Notes 09-30-2021 to 09-21-2022 Patient InstructionsCarolyn Vanegas MD - 09/21/2022 12:43 PM Naa Alves PA-C - 08/26/2022 11:45 AM EDTTmonika Bowman - 08/19/2022 4:06 PM EDT Note Date & Type Note Facility 09-21-2022 Note HNO ID: [id number] Author: Carolyn Vanegas MD Service: ? Author [...] Health Percentile 1 (more content not included)... [facility] 09-21-2022 Instructions Carolyn Vanegas MD - [...] [facility] 08-26-2022 Note HNO ID: [id number] Author: Kassandra Alves PA-C Service: ? Author Type: Physician [employer] Work[employer] Type: Progress Notes Filed: 08/26/2022 11:52 AM Note Text: Per Triage: Alexa Delgado is a 82 year old female that requests evaluation of spine. Per review, they have symptoms of lower back pain. Numbness/tingling right leg. Difficulty walking. Weakness Request: 1st available Referring provider: Galina Rogers MD Patient out of state: no 2nd opinion: no Prior spine surgery: yes 2006 [facility] Address: [address] [place] [address] CMT: PT Injections Tylenol Hydrocodone Studies (Reports [...] reviewed during the appt Kassandra Alves PA-C [facility] 08-26-2022 History of Present illness Narrative Per Triage: Alexa Delgado is a 82 year old female that requests evaluation of spine. Per review, they have symptoms of lower back pain. Numbness/tingling right leg. Difficulty walking. Weakness Request: 1st available Referring provider: Galina Rogers MD Patient out of state: no 2nd opinion: no Prior spine surgery: yes 2006 [facility] Address: [address] [place] [address] CMT: PT Injections Tylenol Hydrocodone Studies (Reports [...] or Pain Management Provider at [facility]? No If answer is YES please schedule [...] facility where the MRI/CT/myelogram was completed: [facility] Address: [address] [place] [address] MRI/CT/myelogram viewable in Epic: No If not, please provide [phone] to fax in imaging reports for review. [...] physical therapy was completed PT Injection [facility] Address: [address] [place] [address] Have you tried any other kinds of [...] where the surgery was completed: 2006 [facility] Address: [address] [place] [address] Additional Comments documented in this encounter [facility] 08-19-2022 Note HNO ID: [id number] Author: Micheal Bowman Service: ? Author Type: ? Type: Progress Notes Filed: 08/26/2022 11:52 AM Note Text: Patient name: Alexa Delgado Are you being referred by a [facility] Provider or Pain Management Provider at [facility]? No If answer is YES please schedule [...] facility where the MRI/CT/myelogram was completed: [facility] Address: [address] [place] [address] MRI/CT/myelogram viewable in Epic: No If not, please provide [phone] to fax in imaging reports for review. [...] and/or physical therapy was completed PT Injection [facility] Address: [address] [place] [address] Have you tried any other kinds of [...] of where the surgery was completed: 2006 [facility] Address: [address] [place] [address] Additional Comments [facility] 07-16-2022 Note PROCEDURE: XR HIP RT [...] authenticated by: HERMES MENDOZA Date: 2022-07-16 11:28 [facility] 05-14-2022 Note HNO ID: [id number] Author: Marty Dozier, DO Service: ? Author Type: Physician Type: Progress Notes Filed: 05/15/2022 10:02 PM Note Text: [facility]ine Initial [...] Ratio: R>L low back Current Treatment: Medications [place] 5-325 mg BID - helps Diclofenac 75 [...] but still has pain -01/28/22 Noemi Sequeira [employer]: BL Lumbar erector spinae TPI (0.125% Marcaine, [...] ongoing as of 04/17/21 -03/08/21 Noemi Sequeira [employer]: Left rhomboid TPI (0.125% Marcaine, 40 mg Kenalog) -02/03/21 LESI - moderate relief for 4 days Prior spine surgery: -2006 L4-5 Discectomy Previously treated by: -[facility], previously Dr. [...] Depression on Negrita (more content not included)... [facility] 05-14-2022 History of Present illness Narrative Images from the original note were not included. [facility] Medical Spine Initial [...] Ratio: R>L low back Current Treatment: Medications [place] 5-325 mg BID - helps Diclofenac 75 [...] but still has pain -01/28/22 Noemi Sequeira [employer]: BL Lumbar erector spinae TPI (0.125% Marcaine, [...] ongoing as of 04/17/21 -03/08/21 Noemi Sequeira [employer]: Left rhomboid TPI (0.125% Marcaine, 40 mg Kenalog) -02/03/21 LESI - moderate relief for 4 days Prior spine surgery: -2006 L4-5 Discectomy Previously treated by: -[facility], previously Dr. [...] reviewed 04/04/22 CT abd/pelvis with IV contrast, [facility], report: Abdominal wall: Old healed left pelvis fractures. Degenerative changes and scoliosis of the lumbar spine. IMPRESSION: No acute abdominal pathology. No acute inflammatory process. No obstructing urinary tract stone. No evidence for bowel obstruction. 11/15/21 XR abd, [facility], report: No acute osseous abnormality. There is moderate dextrocurvature of the lumbar spine. 05/08/2021 XR right hip/pelvis, [facility], report: Rotatory dextro scoliosis of the lumbar [...] mg at h.s., diclofenac 75 mg b.i.d., [place] 5 mg b.i.d. EXAM: Notable for the [...] weeks' time or sooner if needed. [facility] 04-06-2022 Note CONSULTATION CONSULTATION DATE: [...] to kidney dysfunction also. The patient takes [place], however, is very controlled and limits it to the point of detriment. Education was done. The patient was instructed to take the [place] to a b.i.d. to t.i.d. basis. The [...] b.i.d. basis. The patient may increase the [place] to 5/325 t.i.d. We will schedule the [...] the procedure. CC: Galina Rogers M.D. [facility] 03-11-2022 Note CONSULTATION CONSULTATION DATE: [...] gave improvement for 24 hours. Medications include [place] 5/325 b.i.d., diclofenac 75 mg b.i.d., citalopram [...] back pain. PLAN: We will refill her [place] 5/325 b.i.d. We will prescribe her Buderer cream with gabapentin, ketorolac and prilocaine/lidocaine to be placed over her right knee. We will trial Requip 0.25 mg q.h.s. We will see the patient in the clinic in three months' time unless otherwise indicated. Patient agrees with the plan. [facility] 01-28-2022 Note CONSULTATION CONSULTATION DATE: [...] daily which decreases her pain. Medications include [place] 5/325 b.i.d., Flexeril 5 mg b.i.d., diclofenac [...] does consent to. We will refill the [place] 5/325 b.i.d. We will pre-authorize for a right genicular nerve block under fluoroscopy. Patient will follow up in the clinic thereafter. [facility] 01-28-2022 Note CONSULTATION PROCEDURE DATE: [...] be followed up in the office. [facility] 12-31-2021 Note CONSULTATION CONSULTATION DATE: [...] Current medications include diclofenac 75 mg b.i.d., [place] 5/325 b.i.d., citalopram, Flexeril and multivitamin regimen. The patient does state that she breaks her [place] in half and the most she takes [...] and would like to move forward. [facility] 09-30-2021 Note CONSULTATION CONSULTATION DATE: 09/30/2021 This is a very [id number] female accompanied by her returning to the [...] Current medications include diclofenac 50 mg b.i.d., [place] 5/325 b. i.d. and Tylenol. She does [...] at 25 mg q.h.s. Refill for her [place] 5/325 b.i.d. will be sent as well. The patient is to continue with her vitamin regimen which she is currently compliant with, as well as heat application and pool exercises. The patient will be followed up in the office in three months' time unless otherwise indicated. The patient agrees with the plan of care. [facility] Evaluation note Diagnosis Chronic bilateral [...] By Contac t Referred To Contact [facility] Diagnoses Spinal stenosis, lumbar region with neurogenic claudication Procedures CONSULT TO [facility]) OFFICE/OUTPATIENT [facility] MDM 60-74 MINUTES Carolyn Vanegas MD [address] [place] [address] Referral ID Status Reason Start Date Expiration Date Visits Requested Visits Authorized [id number] Pending Review PCP Requested Referral 09/21/2022 09/21/2023 1 1 Additional Source Comments INFORMATION SOURCE (unrecogn ized section and content) DATE CREATED AUTHOR 09/13/2017 [facility] DATE CREATED AUTHOR AUTHOR'S ORGANIZ ATION 12/13/2020 [facility] DATE CREATED AUTHOR AUTHOR'S ORGANIZ ATION 07/30/[address] [facility] pital DATE CREATED AUTHOR AUTHOR'S ORGANIZ ATION 09/22/2022 [facility] DATE CREATED AUTHOR AUTHOR'S ORGANIZ ATION 08/13/2023 [facility] dical [facility] EPIC DATE CREATED AUTHOR AUTHOR'S ORGANIZ ATION 08/25/2023 [facility] DATE CREATED AUTHOR AUTHOR'S ORGANIZ ATION 10/10/2023 [facility] Source Comments (unrecognize d section [...] Care Teams (unrecognized sec tion and content) Watershed Manager Relationship Specialty Start Date End Date Galina Rogers MD [address] [place] [phone] PCP - General Family Medicine 05/14/22 Colette De Leon Jr., DO [address] [facility] [address] [place], [place] [phone] Referring Orthopedics 05/03/22 Porsha Garcia [address] [phone] Pain Management 05/14/22 Colette De Leon Jr., DO [address] [facility] [address] [place] [address] Orthopedics 05/14/22 Watershed Manager Relationship Specialty Start Date End Date Galina Rogers MD [address] [facility] [place] [address] PCP - General Family Medicine 05/14/22 Colette De Leon Jr., DO [address] [place] [address] Referring Orthopedics 05/03/22 Lakshmipathy, Narendranath [address] [place] [phone] Pain Management 05/14/22 Colette De Leon Jr., DO [address] [place] [address] Orthopedics 05/14/22 Galina Rogers MD [address] [facility] [place] [address] Referring Family Medicine 08/11/22 Watershed Manager Relationship Specialty Start Date End Date Galina Rogers MD [address] [facility] [place] [address] PCP - General Family Medicine 05/14/22 Colette De Loen Jr., DO [address] [place] [address] Referring Orthopedics 05/03/22 Tereshmipathy, Narendranath [address] [place] [address] [place] [address], [place] [phone] Pain Management 05/14/22 Colette De Leon Jr., DO [address] [place] [address] Orthopedics 05/14/22 Galina Rogers MD [address] [place] [phone] Referring Family Medicine 08/11/22 FOR RECORDS PERTAINING [...] BE BASED ON THE PRIMARY CLINICAL RECORDS. [employer] [facility]. provides no warranty or guarantee of the accuracy or completeness of information in this document.
--- NOTE | 2023-10-12 21:51 | ECG_ITS ---
[facility] Test Date: 2023-10-12 Pat Name: KARINA CORMIER Department: Room: - Gender: Female [employer]: : 1940 Requested By: GALINA PALMER Order Number: [id number] Reading MD: STEVE WAY Measurements Intervals [place] Rate: 93 P: 62 TX: 150 QRS: 44 QRSD: 86 T: 43 QT: 338 QTc: 389 Interpretive Statements 1100 Sinus rhythm 9110 normal ECG Compared to ECG 08/09/2022 13:12:09 No significant changes Electronically Signed On 10-18-2023 22:18:26 [address]E [address]
--- NOTE | 2023-10-12 21:51 | XR_ITS ---
[address] [address] Patient Name: KARINA CORMIER MRN: [id number] date: 1940 Sex: F Assigned Patient Location: ER Current Patient Location: ER Accession/Order Number: [id number] Exam Date: 10/12/2023 22:07 Report Date: 10/12/2023 22:58 At the request of: MERLYN RAMESH Procedure: XR chest 1V EXAM: XR chest 1V CLINICAL INDICATION: chest pain TECHNIQUE: Portable frontal semi-erect view of the chest. COMPARISON: 08/09/2022 FINDINGS: Lines and tubes: None. Lungs: No convincing focal infiltrates. No pleural effusion or pneumothorax. Heart: Cardiac and mediastinal contours are unremarkable. No overt pulmonary vascular congestion. Osseous structures: No acute abnormalities. XR/XR chest 1V IMPRESSION: No acute cardiopulmonary process. Electronically authenticated by: GAUTAM FARIAS Date: 10/12/2023 22:58
--- NOTE | 2023-10-12 21:54 | ED.CHESTPAI1 ---
HPI - Chest Pain General Chief Complaint: Chest Pain Stated Complaint: Cest Pain Time Seen by Provider: 10/12/23 21:38 Source: patient and family Mode of arrival: Wheelchair Limitations: no limitations History of Present Illness HPI narrative: patient presents complaining of chest pain. First experienced left upper chest and now recurrent episodes epigastric. was short of breath at home. Given nitro SL at home. Now arrives here. 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 Related Data Home Medications ?Medication ?Instructions ?Recorded ?Confirmed B complex with vitamin 1 cap PO DAILY 07/26/22 10/12/23 E-ahxyhzyun-mkrg capsule aspirin 81 mg tablet,delayed 81 mg PO DAILY 07/26/22 10/12/23 release calcium carb-vit D3-minerals 600 1 tab PO DAILY 07/26/22 10/12/23 mg calcium-400 unit tablet capsaicin 0.025 % topical patch 1 patch topical DAILY pain 07/26/22 10/12/23 (Salonpas-Hot) citalopram 10 mg tablet 10 mg PO DAILY 07/26/22 10/12/23 fexofenadine 180 mg tablet 180 mg PO DAILY 07/26/22 10/12/23 (Benita Allergy) flaxseed oil 1,000 mg capsule 1,000 mg PO DAILY 07/26/22 10/12/23 glucosamine 750 ls-lnzmji-lvm 2-C 1 tab PO DAILY 07/26/22 10/12/23 30 mg-D3 1,000 unit-maida 1 mg tablet (Qrfoboelgyd-Jbyjdhgqcud-GQU + vitD) isosorbide mononitrate 30 mg 30 mg PO DAILY 07/26/22 10/12/23 tablet,extended release 24 hr liothyronine 25 mcg tablet 25 mcg PO DAILY 07/26/22 10/12/23 (Cytomel) melatonin 3 mg capsule 3 mg PO DAILY 07/26/22 10/12/23 metoprolol succinate 50 mg 50 mg PO BID 07/26/22 10/12/23 tablet,extended release 24 hr multivitamin 1 tab PO DAILY 07/26/22 10/12/23 nitroglycerin 0.4 mg sublingual 0.4 mg sublingual Q5M PRN chest 07/26/22 10/12/23 tablet pain cyclobenzaprine 10 mg tablet 10 mg PO BEDTIME 02/28/24 08/21/24 ferrous sulfate 325 mg (65 mg 325 mg PO BID 09/02/23 10/12/23 iron) tablet cyclobenzaprine 5 mg tablet 5 mg PO QAM 10/13/23 10/13/23 diclofenac sodium 75 mg 75 mg PO BID 10/13/23 10/13/23 tablet,delayed release levothyroxine 75 mcg tablet 75 mcg PO QAM 10/13/23 10/13/23 Previous Rx's ?Medication ?Instructions ?Recorded hydrocodone 5 mg-acetaminophen 325 1 tab PO TID PRN pain #90 tabs 10/06/23 mg tablet pantoprazole 40 mg tablet,delayed 40 mg PO DAILY #30 tabs 10/13/23 release (Protonix) Allergies Allergy/AdvReac Type Severity Reaction Status Date / Time Penicillins Allergy Severe Hives Verified 10/12/23 21:45 codeine AdvReac Intermediate Dizziness Verified 10/12/23 21:45 fluconazole [From Diflucan] AdvReac Intermediate Hives Verified 09/26/23 10:50 quinine [From Quinamm] AdvReac Mild Headache Verified 10/12/23 21:45 decongest multi-action AdvReac Mild Headache Uncoded 10/12/23 21:45 Review of Systems ROS Status of ROS 10 or more systems reviewed and unremarkable except as noted in history and below [facility] Medical History Pelvic fracture ?S32.9XXA - Fracture of unspecified parts of lumbosacral spine and pelvis, initial encounter for closed fracture (ICD-10) TIA (transient ischemic attack) ?G45.9 - Transient cerebral ischemic attack, unspecified (ICD-10) Closed fracture of coccyx ?S32.2XXA - Fracture of coccyx, initial encounter for closed fracture (ICD-10) Osteoarthritis ?M19.90 - Unspecified osteoarthritis, unspecified site (ICD-10) H/O pyelonephritis ?Z87.448 - Personal history of other diseases of urinary system (ICD-10) Syncope ?R55 - Syncope and collapse (ICD-10) Generalized weakness ?R53.1 - Weakness (ICD-10) Dizziness ?R42 - Dizziness and giddiness (ICD-10) Surgical History Pain management ?R52 - Pain, unspecified (ICD-10) H/O bladder repair surgery ?Z98.890 - Other specified postprocedural states (ICD-10) H/O breast surgery ?Z98.890 - Other specified postprocedural states (ICD-10) H/O knee surgery ?Z98.890 - Other specified postprocedural states (ICD-10) H/O foot surgery ?Z98.890 - Other specified postprocedural states (ICD-10) History of right knee joint replacement ?Z96.651 - Presence of right artificial knee joint (ICD-10) History of YAG laser capsulotomy of lens ?Z98.49 - Cataract extraction status, unspecified eye (ICD-10) Hx laparoscopic cholecystectomy ?Z90.49 - Acquired absence of other specified parts of digestive tract (ICD-10) H/O: hysterectomy ?Z90.710 - Acquired absence of both cervix and uterus (ICD-10) History of arthroscopic knee surgery ?Z98.890 - Other specified postprocedural states (ICD-10) H/O discectomy ?Z98.890 - Other specified postprocedural states (ICD-10) H/O dilation and curettage ?Z98.890 - Other specified postprocedural states (ICD-10) History of appendectomy ?Z90.49 - Acquired absence of other specified parts of digestive tract (ICD-10) Hx of tonsillectomy ?Z90.89 - Acquired absence of other organs (ICD-10) Family History (Updated 10/13/23 @ 03:25 by Areli Owens RN) Other Family history of CHF (congestive heart failure) Social History (Updated 10/13/23 @ 03:26 by Areli Owens RN) Within the past year, how often did you have a drink containing alcohol: never Score interpretation: A score less than 3 is consistent with normal alcohol consumption. Smoking status: Never smoker Non-prescribed substance use: denies use Previous occupational history: Retired, , lives at home Highest level of school completed/degree received: high school graduate Are you now , , , , never or living with a partner: In a typical week, how many times do you talk on the telephone with family, friends, or neighbors: once per week How often do you get together with friends or relatives: once per week How often do you attend baptism or mosque services: 1-3 times per year Little interest or pleasure in doing things: not at all Feeling down, depressed, or hopeless: not at all Feel stressed/tense/nervous/anxious/difficulty sleeping: not at all Gender Identity: female Exam Constitutional Vital Signs, click to edit/add: Last Vital Signs Temp 97.7 F 10/13/23 02:53 Pulse 90 10/13/23 14:00 Resp 18 10/13/23 08:00 BP 165/80 H 10/13/23 04:25 Pulse Ox 98 10/13/23 14:00 O2 Del Method Nasal Cannula 10/13/23 04:25 O2 Flow Rate 3 10/13/23 04:25 Common normals: no apparent distress, average body habitus, oriented x3, no limitations, healthy appearing, alert and well nourished HENMT Common normals: normocephalic Eye Common normals: EOMs intact bilaterally Respiratory Common normals: normal respiratory effort, no retractions, no use of accessory muscles and clear to auscultation bilaterally Cardio Common normals: regular rate, regular rhythm, S1 normal heart sound and S2 normal heart sound GI Common normals: Normal to inspection, nondistended, normoactive bowel sounds present, soft to palpation and non-tender Extremity Common normals: normal to inspection and full ROM Neuro Common normals: moves all extremities Other: left facial weakness Psych Appearance: grossly normal Course Vital Signs Vital signs: Vital Signs Temperature 97.9 F 10/12/23 21:37 Respiratory Rate 18 10/12/23 21:37 Blood Pressure 157/84 H 10/12/23 21:37 Pulse Oximetry 98 10/12/23 21:37 Oxygen Delivery Method Room Air 10/12/23 21:37 Temperature 97.7 F 10/13/23 02:53 Pulse Rate 90 10/13/23 14:00 Respiratory Rate 18 10/13/23 08:00 Blood Pressure 165/80 H 10/13/23 04:25 Pulse Oximetry 98 10/13/23 14:00 Oxygen Delivery Method Nasal Cannula 10/13/23 04:25 Oxygen Delivery Flow Rate 3 10/13/23 04:25 MDM - Chest Pain MDM Narrative Medical decision making narrative: patient presents with acute left sided chest pain associated with dyspnea and mild nausea. d-dimer positive . CTA chest neg for PE. first troponin neg. EKG unremarkable. Discussed with the hospitalist and will plan obs admission. Will wait for 2nd troponin before admitting upstairs Lab Data Labs: Lab Results 10/12/23 10/13/23 Range/Units 21:52 01:05 WBC 6.2 (4.0-11.0) 10^3/uL RBC 3.62 L (4.20-5.40) 10^6/uL Hgb 11.7 L (12.0-16.0) g/dL Hct 34.6 L (36.0-48.0) % MCV 95.6 (81.0-99.0) fL MCH 32.3 (26.7-34.0) pg MCHC 33.8 (29.9-35.2) g/dL RDW 13.0 (11.0-15.0) % Plt Count 216 (150-450) 10^3/uL MPV 9.5 (9.5-13.5) fL Neut % (Auto) 72.0 (43.0-75.0) % Lymph % (Auto) 10.8 L (20.5-60.0) % [place] % (Auto) 15.0 H (1.7-12.0) % Eos % (Auto) 0.6 L (0.9-7.0) % Baso % (Auto) 0.3 (0.2-2.0) % Neut # (Auto) 4.5 (1.4-6.5) 10^3/uL Lymph # (Auto) 0.7 L (1.2-3.8) 10^3/uL [place] # (Auto) 0.9 H (0.3-0.8) 10^3/uL Eos # (Auto) 0.0 (0.0-0.7) 10^3/uL Baso # (Auto) 0.0 (0.0-0.1) 10^3/uL Abs Immat Gran (auto) 0.08 H (0.00-0.03) 10^3/uL Imm/Tot Granulo (auto) 1.3 H (0.0-0.5) % D-Dimer 0.78 H* (<=0.59) mg/L FEU Sodium 132 L (136-145) mmol/L Potassium 4.5 (3.5-5.1) mmol/L Chloride 94 L (98-107) mmol/L Carbon Dioxide 30.0 (21.0-32.0) mmol/L Anion Gap 12.5 BUN 26.0 H (7.0-18.0) mg/dL Creatinine 0.92 (0.55-1.02) mg/dL Est GFR ( Amer) >60 (>=60) Est GFR (Non-Af Amer) 58 L (>=60) BUN/Creatinine Ratio 28.3 Glucose 113 H (74-106) mg/dL Calcium 9.0 (8.5-10.1) mg/dL Total Bilirubin 0.2 (0.2-1.0) mg/dL Direct Bilirubin 0.1 (0.0-0.2) mg/dL AST 27 (15-37) U/L ALT 35 (14-59) U/L Alkaline Phosphatase 80 (46-116) U/L Troponin I High Sens 18.6 21.2 (4.0-51.3) pg/mL Total Protein 6.5 (6.4-8.2) g/dL Albumin 3.5 (3.4-5.0) g/dL Globulin 3.0 g/dL Albumin/Globulin Ratio 1.2 Lipase 67.0 (16.0-77.0) U/L Discharge Plan Discharge Chief Complaint: Chest Pain Clinical Impression: Chest pain, rule out acute myocardial infarction Patient Disposition: Admitted as Observation Condition: Fair Discharge Date/Time: 10/13/23 02:45
[2023-10-12] MEDS: ASPIRIN 81 MG TAB.CHEW 324 MG PO (22:03)
[2023-10-12 22:20] LABS: Alanine Aminotransferase 35 U/L (14-59); Albumin Globulin Ratio 1.2; Albumin Level 3.5 g/dL (3.4-5.0); Alkaline Phosphatase 80 U/L (46-116); Aspartate Amino Transferase 27 U/L (15-37); Basophils Percent Auto 0.3 % (0.2-2.0); Bilirubin Direct 0.1 mg/dL (0.0-0.2); Bilirubin Total 0.2 mg/dL (0.2-1.0); Eosinophils Percent Auto 0.6 % (0.9-7.0); Hematocrit 34.6 % (36.0-48.0); Hemoglobin 11.7 g/dL (12.0-16.0); Immature Granulocytes Abs Auto 0.08 10^3/uL (0.00-0.03); Immature Granulocytes Pct Auto 1.3 % (0.0-0.5); Lymphocytes Absolute Auto 0.7 10^3/uL (1.2-3.8); Lymphocytes Percent Auto 10.8 % (20.5-60.0); Mean Corpuscular HGB Conc 33.8 g/dL (29.9-35.2); Mean Corpuscular Hemoglobin 32.3 pg (26.7-34.0); Mean Corpuscular Volume 95.6 fL (81.0-99.0); Mean Platelet Volume 9.5 fL (9.5-13.5); Monocytes Absolute Auto 0.9 10^3/uL (0.3-0.8); Neutrophils Absolute Auto 4.5 10^3/uL (1.4-6.5); Platelet Count 216 10^3/uL (150-450); Red Blood Count 3.62 10^6/uL (4.20-5.40); Total Protein 6.5 g/dL (6.4-8.2); White Blood Count 6.2 10^3/uL (4.0-11.0)
[2023-10-12] MEDS: NITROGLYCERIN 0.1 MG/HR PATCH.TD24 1 EACH TD (22:31)
[2023-10-12 22:37] LABS: Anion Gap 12.5; BUN Creatinine Ratio 28.3; Chloride 94 mmol/L (98-107); Estimated GFR (African America >60 (>=60); Estimated GFR (Non-African Ame 58 (>=60); Glucose 113 mg/dL (74-106); Potassium 4.5 mmol/L (3.5-5.1); Sodium 132 mmol/L (136-145); Troponin I High Sensitivity 18.6 pg/mL (4.0-51.3)
[2023-10-12 22:44] LABS: D Dimer 0.78 mg/L FEU (<=0.59)
--- NOTE | 2023-10-12 22:47 | CT_ITS ---
The [address] [address] Patient Name: KARINA CORMIER MRN: [id number] date: 1940 Sex: F Assigned Patient Location: ER Current Patient Location: Accession/Order Number: [id number] Exam Date: 10/12/2023 23:30 Report Date: 10/13/2023 00:18 At the request of: MERLYN RAMESH Procedure: CT angio chest CTA OF THE CHEST WITH CONTRAST: 10/12/2023 11:30 PM EDT HISTORY: Elevated d-dimer. Chest pain x2 hours. TECHNIQUE: Initially, thin section noncontrast images through portions of the chest were obtained for the purpose of establishing proper bolus timing of contrast. Subsequently, thin section axial CT images were obtained through the chest after intravenous administration of 100 mL Omnipaque 350 IV without event. To optimally assess the thoracic vasculature, the original axial data was used to create 3D volume rendered, multiplanar reformatted and/or maximum intensity projection images in various planes. The axial and reformatted data were reviewed for this report. On separate workstation, 3-D reconstructions obtained of the aorta and pulmonary arteries. Dose reduction techniques were achieved by using automated exposure control and/or adjustment of mA and/or kV according to patient size and/or use of iterative reconstruction technique. COMPARISON: CT abdomen and pelvis with contrast 04/04/2022. And CT abdomen and pelvis 04/01/2017 FINDINGS: Bolus opacification of the pulmonary arteries was adequate for purposes of diagnosis. There is no central, lobar, or segmental pulmonary arterial filling defect to suggest pulmonary embolus. There is some mild interstitial prominence at lung bases, some of which may be chronic. Difficult to exclude acute on chronic interstitial process. Some of these changes are new from remote studies. There is some mild vascular congestion. Correlate for mild fluid overload and interstitial edema. No focal lung consolidation. No mass or nodule. No pleural effusion or pneumothorax. Lungs otherwise clear. No hilar or mediastinal lymphadenopathy. Chambers are within normal limits. No pericardial fluid. Normal caliber thoracic aorta. Scattered atherosclerotic calcific plaque throughout the wall of the aorta. No dissection. Scans of the upper abdomen again demonstrate multiple scattered hepatic cysts with large stable chronic septated cyst within the left hepatic lobe with some calcifications throughout septa. This was present and unchanged dating back to 04/01/2017 study therefore statistically benign measuring up to 7.5 cm transverse and 4.3 cm AP. There is a another large lobular cystic lesion within the posterior hepatic dome measuring 2.6 cm by almost 4 cm. This has mean attenuation values of less than 21 Hounsfield units. This was also present on 04/01/2017 and only slightly increased in size. Numerous other scattered cysts are partially seen throughout the liver also present previously. No acute upper abdominal findings. There is no body wall mass. There is no destructive osseous process. No axillary adenopathy. CT/CT angio chest IMPRESSION: 1. Negative for acute PE. 2. Borderline mild vascular congestion and mild bibasilar interstitial prominence. Could reflect some mild acute fluid overload and interstitial edema versus some chronic bibasilar interstitial disease. Correlate with symptoms. May explain elevated d-dimer from mild CHF. 3. Redemonstration of multiple complex and simple hepatic cysts which were present dating back to CT abdomen from 04/01/2017, therefore statistically benign. Electronically authenticated by: LENNY MCMAHAN Date: 10/13/2023 00:18
[2023-10-13] VITALS (14 sets, daily range): BP systolic 126–190; BP diastolic 78–90; PULSE 76–144; TEMP 36.5; O2SAT 96–99; BMI 26.2
[2023-10-13] MEDS: ACETAMINOPHEN 500 MG TABLET 1000 MG PO (00:52)
[2023-10-13] MEDS: HYDROCODONE/ACET 5-325 MG TABLET 1 TAB PO (00:52)
[2023-10-13 01:31] LABS: Troponin I High Sensitivity 21.2 pg/mL (4.0-51.3)
--- OUTSIDE RECORDS SUMMARY | 2023-10-13 02:50 | XMS_ITS | CCD ---
Author Organization [facility] Care Team Providers Care Skip Hoist Operator Name Role Phone PHYSICIAN, DEFAULT Unavailable Unavailable PHYSICIAN, DEFAULT Unavailable Unavailable Haley Matos DO, George Cajetan Unavailable Galina Rogers MD Primary Care Provider Lakshmipathy, Narendranath Unavailable Haley Matos DO, George Cajeaydee Unavailable ESTELA [...] Unavailable HOY ., DR MOJICA Consulting Unavailable [place] CROGHAN, DR HERMES Jean Baptiste Consulting Unavailable LATANYA [...] Codeine; Translations: [CODEINE] Drug Allergy 3 Unknown [facility] (4 sources) Penicillins; Translations: [PENICILLINS] Drug Allergy 3 Unknown [facility] (4 sources) pregabalin; Translations: [PREGABALIN] Drug Allergy 3 Intolerance [facility] Work Phone: (4 sources) Propoxyphene; Translations: [PROPOXYPHENE] Drug Allergy 3 Rash, Unknown [facility] (4 sources) quiNINE; Translations: [QUINAMM] Drug Allergy 3 GI Upset [facility] (5 sources) Decongest Multi-Action; Translations: [Decongest Multi-Action] Drug Allergy 3 Other: See Comments [facility] (1 source) Acetaminophen / HYDROcodone Drug Allergy [facility] (2 sources) Codeine Drug Allergy 3 [facility] (1 source) Fluconazole Drug Allergy [facility] (2 sources) Penicillins Drug allergy (disorder) 3 [facility] (1 source) pregabalin Drug Allergy [facility] (2 sources) Propoxyphene Drug Allergy [facility] (1 source) quiNINE Drug Allergy [facility] Medications Completed/Discontinued Medications Medication Drug [...] above: Take 1 tablet by [facility] twice daily as needed. aspirin 81 mg [...] above: Take by mouth twice daily. 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] Onset: 04-06-2022 Episodic Other [...] Test Name Value Interpretation Reference Range Facility [facility] 08-18-2023 L Specimen: [id number] Received: 08/22/23 Status: SOUT Req Num: [id number] Spec Type: Impression Subm Dr: Galina Rogers MD Tissues: PATHPER Procedures: PATHREVIEW Age/ Patient Sex Location Account Attending Physician Alexa Delgado 83/F LABELL [id number] Galina Rogers MD SPEC NUM: [id number] RECD: 08/22/23 STATUS: SOUT REQ NUM: [id number] JANET: 08/18/[address]: Galina Rogers MD ENTERED: 08/22/23-1058 [facility] DR: Annie Rivas SPEC TYPE: Impression DEPT: SHELLIE Simmons ENTERED BY: [id number] RECV BY: [id number] ORDERED: PATHREVIEW ORDERED: PATHREVIEW Pathologist Review Abnormal [...] initial report for the needed correction CPT: 00186 ---- ---- Specimen: [id number] Received: 08/22/23 Status: SOUAinsley Rejose Num: [id number] Spec Type: Impression Subm Dr: Galina Rogers MD Tissues: PATHPER Procedures: PATHREVIEW ---- Patient: Alexa Delgado [id number] (Continued) ---- Signed (signature on file) [place] Abdul MD 08/24/23918 [place] [facility] ([facility] ) ALEXA DELGADO ([id number]) 1940 F Date Time Provider Department 09/21/22 1:00 PM CAROLYN VANEGAS [facility] During your visit today, we recorded [...] Percentile 2 (more content not included)... Normal [facility] XR LSPINE 2_3 VIEWSon 2022 XR [...] by: HERMES MENDOZA Date: 2022-07-16 11:34 Normal [facility] CNOVon 05-14-2022 CNOV Office Visit (SPMESH ) ALEXA DELGADO ([id number]) 1940 F Date Time Provider Department 05/14/22 2:30 PM MARTY DOZIER During your visit today, we recorded the following information about you: Pulse Blood pressure Weight Height 72/minute 158/87 76.4 kg 1.524 m Marty Dozier DO 05/15/2022 10:02 PM Signed [facility] - [facility] [...] Ratio: R>L low back Current Treatment: Medications Goodwin 5-325 mg BID - helps Diclofenac 75 [...] but still has pain -01/28/22 Noemi Sequeira BRIM RAISER: BL Lumbar erector spinae TPI (0.125% Marcaine, [...] ongoing as of 04/17/21 -03/08/21 Noemi Sequeira BRIM RAISER: Left rhomboid TPI (0.125% Marcaine, 40 mg Kenalog) -02/03/21 LESI - moderate relief for 4 days Prior spine surgery: -2006 L4-5 Discectomy Previously treated by: -[facility], previously Dr. Niko [...] today. She has an evaluation at the [facility] tomorrow at the [facility] Center. RECOMMENDATIONS: We will see the pat (more content not included)... Normal [facility] CULTURE URINEon 04-05-2022 CULTURE URINE Culture Observations : LIGHT GROWTH OF MIXED GENITAL ALANIS. NO POTENTIAL PATHOGENS SEEN. Normal [facility] Comment on above: Performed By: #### U RCX ####[facility] [address] [place], [place] [address]Un. Grace Abdul UA RANDOM W/MICROSCOPICon BACTERIA NONE SEEN Normal NONE SEEN [facility] Comment on above: Performed By: #### U AMIC ####[facility] [address] [place] [address]Dr. Grace Abdul Bilirubin Ql (U) Negative Normal NEGATIVE [facility] Comment on above: Performed By: #### U AMIC ####[facility] [address] [place] [address]Dr. Grace Abdul CAST NONE SEEN Normal NONE SEEN [facility] Comment on above: Performed By: #### U AMIC ####[facility] [address] [place], [place] [address]Dr. Grace Abdul Clarity (U) CLEAR Normal CLEAR [facility] Comment on above: Performed By: #### U AMIC ####[facility] Onx[address] [place], [place] [address]Dr. Grace Abdul Color (U) YELLOW Normal YELLOW [facility] Comment on above: Performed By: #### U AMIC ####[facility] Rgewptt[address] [place], [place] [address]Dr. Grace Abdul Crystals LM Nom (Urine sed) NONE SEEN Normal NONE SEEN [facility] Comment on above: Performed By: #### U AMIC ####[facility] [address] [place], [place] [address]Dr. Grace Abdul Epithelial cells LM Ql (Urine sed) RARE Normal NONE SEEN /RARE [facility] Comment on above: Performed By: #### U AMIC ####[facility] [address]ex[address] [place], [place] [address]Dr. Grace Abdul Glucose Ql (U) Negative Normal NEGATIVE [facility] Comment on above: Performed By: #### U AMIC ####[facility] [address] [place], [place] [address]Dr. Grace Abdul Hemoglobin Ql (U) MODERATE Abnormal NEGATIVE [facility] Comment on above: Performed By: #### U AMIC ####[facility] [address] [place], [place] [address]Dr. Grace Abdul Ketones Ql (U) TRACE Abnormal NEGATIVE [facility] Comment on above: Performed By: #### U AMIC ####[facility] Lrivqxmv[address] [place], [place] [address]Dr. Grace Abdul LEUKOCYTES TRACE Abnormal NEGATIVE [facility] Comment on above: Performed By: #### U AMIC ####[facility] [address] [place] [address]Dr. Grace Abdul MUCOUS NONE SEEN Normal NONE SEEN [facility] Comment on above: Performed By: #### U AMIC ####[facility] [address] [place] [address]Dr. Benitalee ann Abdul Nitrite Ql (U) Negative Normal NEGATIVE [facility] Comment on above: Performed By: #### U AMIC ####[facility] [address] [place] [address]Dr. Benitalee ann Abdul pH (U) 5.0 [pH] Normal 5-9 [facility] Comment on above: Performed By: #### U AMIC ####[facility] [address] [place] [address]Dr. Grace Abdul RBC 0-2 Normal 0-2 [facility] Comment on above: Performed By: #### U AMIC ####[facility] [address] [place], [place] [address]Dr. Grace Abdul SPEC GRAVITY 1.015 Normal 1.005-<=1.025 [facility] Comment on above: Performed By: #### U AMIC ####[facility] [address] [place] [address]Dr. Grace Abdul UA PROTEIN Negative Normal NEGATIVE/ TRACE [facility] Comment on above: Performed By: #### U AMIC ####[facility] [address] [place] [address]Dr. Benitalee ann Abdul Urobilinogen Qn (U) 0.2 {Ashley'U}/dL Normal 0.2 - 1. 0 [facility] Comment on above: Performed By: #### U AMIC ####[facility] [address]seg[address] [place], [place] [address]Dr. Grace Abdul WBC 0-2 Abnormal NONE SEEN [facility] Comment on above: Performed By: #### U AMIC ####[facility] [address] [place], [place] [address]Dr. Grace Abdul CBC AUTO DIFFon 04-04-2022 BASO # 0.0 103/ul Normal 0.0-0.1 [facility] Comment on above: Performed By: #### C BC ####[facility] [address] [place] [id number]. Grace Abdul Basophils/100 WBC (Bld) 0.4 % Normal 0.2-2.0 [facility] Comment on above: Performed By: #### C BC ####[facility] [address] [place] [id number]. Grace Franko EO # 0.1 103/ul Normal 0.0-0.7 [facility] Comment on above: Performed By: #### C BC ####[facility] [address] [place] [address]Dr. Grace Franko Eosinophils/100 WBC (Bld) 1.3 % Normal 0.9-7.0 [facility] Comment on above: Performed By: #### C BC ####[facility] [address] [place] [address]Dr. Grace Abdul Erythrocyte distribution width (RBC) [Ratio] 13.7 % Normal 11.0-15.0 [facility] Comment on above: Performed By: #### C BC ####[facility] [address] [place] [id number]. Grace Abdul Hematocrit (Bld) [Volume fraction] 37.2 % Normal 36.0-48.0 [facility] Comment on above: Performed By: #### C BC ####[facility] [address] [place] [phone]. Grace Abdul Hemoglobin (Bld) [Mass/Vol] 12.4 g/dL Normal 12.0-16.0 [facility] Comment on above: Performed By: #### C BC ####[facility] [address] [place] [id number]. Grace Franko IG # 0.02 10e3/ul Normal 0.00-0.03 [facility] Comment on above: Performed By: #### C BC ####[facility] [address] [place] [address]Dr. Grace Abdul IG % 0.4 % Normal 0.0-0.5 [facility] Comment on above: Performed By: #### C BC ####[facility] [address] [place], [place] [address]Bz. Grace Abdul LYMPH # 0.8 103/ul Critically low 1.2-3.8 [facility] Comment on above: Performed By: #### C BC ####[facility] [address] [place] [phone]. Grace Abdul Lymphocytes/100 WBC (Bld) 13.9 % Critically low 20.5-60.0 [facility] Comment on above: Performed By: #### C BC ####[facility] [address] [place] [phone]. Grace Abdul MANUAL DIFF REQ NO Normal [facility] Comment on above: Performed By: #### C BC ####[facility] [address] [place] [phone]. Grace Abdul MCH (RBC) [Entitic mass] 30.5 pg Normal 26.7-34.0 [facility] Comment on above: Performed By: #### C BC ####[facility] [address] [place] [phone]. Grace Abdul MCHC (RBC) [Mass/Vol] 33.3 g/dL Normal 29.9-35.2 [facility] Comment on above: Performed By: #### C BC ####[facility] [address] [place] [address]Dr. Grace Abdul MCV (RBC) [Entitic vol] 91.4 fL Normal 81.0-99.0 [facility] Comment on above: Performed By: #### C BC ####[facility] [address] [place] [address]Dr. Grace Abdul MONO # 0.7 103/ul Normal 0.3-0.8 [facility] Comment on above: Performed By: #### C BC ####[facility] [address] [place] [address]Dr. Grace Abdul Monocytes/100 WBC (Bld) 13.5 % Critically high 1.7-12.0 [facility] Comment on above: Performed By: #### C BC ####[facility] [address] [place] [phone]. Grace Abdul NEUT # 3.8 103/ul Normal 1.4-6.5 [facility] Comment on above: Performed By: #### C BC ####[facility] [address] [place] [address]Dr. Grace Abdul Neutrophils/100 WBC (Bld) 70.5 % Normal 43.0-75.0 [facility] Comment on above: Performed By: #### C BC ####[facility] [address] [place] [phone]. Grace Abdul Platelet mean volume (Bld) [Entitic vol] 9.0 fL Critically low 9.5-13.5 [facility] Comment on above: Performed By: #### C BC ####[facility] [address] [place] [phone]. Grace Abdul PLT 283 103/ul Normal 150-450 [facility] Comment on above: Performed By: #### C BC ####[facility] [address] [place] [phone]. Grace Abdul RBC 4.07 106/ul Critically low 4.20-5.40 [facility] Comment on above: Performed By: #### C BC ####[facility] [address] [place], [place] [address]Dr. Grace Abdul WBC 5.4 103/ul Normal 4.0-11.0 [facility] Comment on above: Performed By: #### C BC ####[facility] [address] [place] [phone]. Grace Abdul CT ABD/PELV W CONon 04-04-19 [...] EMILY NAVARRETE Date: 2022-04-04 16:59 Normal [facility] ER URINE PROFILEon 3 Bilirubin Ql (U) Negative Normal NEGATIVE [facility] Comment on above: Performed By: #### ROBERT FELDER ####[facility] [address] [place], [place] [address]Ug. Grace Abdul Clarity (U) CLEAR Normal CLEAR [facility] Comment on above: Performed By: #### ROBERT FELDER ####[facility] [address] [place], [place] [address]PeLisette Abdul Color (U) LT. YELLOW Normal YELLOW [facility] Comment on above: Performed By: #### ROBERT FELDER ####[facility] [address] [place] [address]Dr. Grace HIGGINS A micrscopic examination will be performed if indicated. Normal [facility] Comment on above: Performed By: #### ROBERT FELDER ####[facility] [address] [place] [address]Dr. Grace Abdul Glucose Ql (U) Negative Normal NEGATIVE [facility] Comment on above: Performed By: #### ROBERT FELDER ####[facility] [address] [place] [address]Dr. Grace Abdul Hemoglobin Ql (U) SMALL Abnormal NEGATIVE [facility] Comment on above: Performed By: #### ROBERT FELDER ####[facility] [address] [place] [address]Dr. Grace Abdul Ketones Ql (U) Negative Normal NEGATIVE [facility] Comment on above: Performed By: #### ROBERT FELDER ####[facility] [address] [place], [place] [address]Dr. Grace Abdul LEUKOCYTES TRACE Abnormal NEGATIVE [facility] Comment on above: Performed By: #### ROBERT FELDER ####[facility] [address] [place], [place] [address]Dr. Grace Abdul Nitrite Ql (U) Negative Normal NEGATIVE [facility] Comment on above: Performed By: #### ROBERT FELDRE ####[facility] [address] [place] [address]Dr. Grace Abdul pH (U) 7.5 [pH] Normal 5-9 [facility] Comment on above: Performed By: #### ROBERT FELDER ####[facility] [address] [place], [place] [address]Dr. Grace Abdul SPEC GRAVITY 1.005 Normal 1.005-<=1.025 [facility] Comment on above: Performed By: #### ROBERT FELDER ####[facility] [address] [place], [place] [address]Dr. Grace Abdul UA PROTEIN Negative Normal NEGATIVE/ TRACE [facility] Comment on above: Performed By: #### ROBERT FELDER ####[facility] [address] [place] [address]Dr. Grace Abdul UR MICRO IND INDICATED Normal [facility] Comment on above: Performed By: #### ROBERT FELDER ####[facility] [address] [place] [address]Dr. Grace Abdul Urobilinogen Qn (U) 0.2 {Ashley'U}/dL Normal 0.2 - 1. 0 [facility] Comment on above: Performed By: #### ROBERT FELDER ####[facility] [address]ozfr[address] [place], [place] [address]Dr. Grace Abdul LIPASEon 04-04-2022 Lipase [Catalytic activity/Vol] 115.0 U/L Normal 73.0-393.0 [facility] Comment on above: Performed By: #### C JOETB #### [facility] [address] [place] [address] Dr. Grace Abdul PROF 14(COMP METB)on 023 Albumin [Mass/Vol] 3.6 g/dL Normal 3.4-5.0 [facility] Comment on above: Performed By: #### Lakia DIAZTBH #### [facility] [address] [place] [address] Dr. Grace Abdul Albumin/Globulin [Mass ratio] 1.1 {ratio} Normal [facility] Comment on above: Performed By: #### C VDTBH #### [facility] [address] [place] [address] Dr. Grace Abdul ALP [Catalytic activity/Vol] 74 U/L Normal 46-116 [facility] Comment on above: Performed By: #### C VDTBH #### [facility] [address] [place] [address] Dr. Grace Abdul ALT [Catalytic activity/Vol] 23 U/L Normal 14-59 [facility] Comment on above: Performed By: #### C VDTBH #### [facility] [address] [place] [address] [address] Grace Abdul Anion gap [Moles/Vol] 12.1 mmol/L Normal [facility] Comment on above: Performed By: #### C VDTBH #### [facility] [address] [place] [address] [address] Grace Abdul AST [Catalytic activity/Vol] 21 U/L Normal 15-37 [facility] Comment on above: Performed By: #### C VDTBH #### [facility] [address] [place] [address] [address] Grace Abdul Bilirubin [Mass/Vol] 0.2 mg/dL Normal 0.2-1.0 [facility] Comment on above: Performed By: #### C VDTBH #### [facility] [address] [place] [address] Dr. Grace Abdul Calcium [Mass/Vol] 9.3 mg/dL Normal 8.5-10.1 [facility] Comment on above: Performed By: #### C VDTBH #### [facility] [address] [place] [address] Dr. Grace Abdul Chloride [Moles/Vol] 99 mmol/L Normal 98-107 [facility] Comment on above: Performed By: #### C VDTBH #### [facility] [address] [place] [address] Dr. Grace Abdul CO2 [Moles/Vol] 31.2 mmol/L Normal 21.0-32.0 [facility] Comment on above: Performed By: #### C VDTBH #### [facility] [address] [place] [address] Dr. Grace Abdul Creatinine [Mass/Vol] 1.22 mg/dL Critically high 0.55-1.02 [facility] Comment on above: Performed By: #### C VDTBH #### [facility] [address] [place] [address] [address] Grace Abdul EGFR-AF TRISTANIAN 51 mL/min/1.73m2 Critically low >=60 [facility] Comment on above: Performed By: #### C VDTBH #### [facility] [address] [place] [address] [address] Grace Abdul EGFR-NON AF TRISTANIAN 42 mL/min/1.73m2 Critically low >=60 [facility] Comment on above: Performed By: #### C VDTBH #### [facility] [address] [place] [address] [address] Grace Abdul Globulin (S) [Mass/Vol] 3.3 g/dL Normal [facility] Comment on above: Performed By: #### C VDTBH #### [facility] [address] [address] [address] Grace Abdul Glucose [Mass/Vol] 115 mg/dL Critically high 74-106 [facility] Comment on above: Performed By: #### C VDTBH #### [facility] [address] [place] [address] Dr. Grace Abdul Potassium [Moles/Vol] 3.3 mmol/L Critically low 3.5-5.1 [facility] Comment on above: Performed By: #### C VDTBH #### [facility] [address] [address] [address] Grace Abdul Protein [Mass/Vol] 6.9 g/dL Normal 6.4-8.2 [facility] Comment on above: Performed By: #### C VDTBH #### [facility] [address] [address] [address] Grace Abdul Sodium [Moles/Vol] 139 mmol/L Normal 136-145 [facility] Comment on above: Performed By: #### C VDTBH #### [facility] [address] [address] [address] Grace Abdul Urea nitrogen [Mass/Vol] 23.0 mg/dL Critically high 7.0-18.0 [facility] Comment on above: Performed By: #### C VDTBH #### [facility] [address] [address] [address] Grace Abdul Urea nitrogen/Creatinine [Mass ratio] 18.9 mg/mg Normal [facility] Comment on above: Performed By: #### C VDTBH #### [facility] [address] [address] [address] Grace Abdul URINE MICROSCOPIC ONLYon BACTERIA NONE SEEN Normal NONE SEEN [facility] Comment on above: Performed By: #### Anthony ELLISON UMICRO ####[facility] [address] [place] [address]Dr. Grace Abdul Bacteria identified Cx Nom (U) NOT INDICATED Normal [facility] Comment on above: Performed By: #### Anthony ELLISON UMICRO ####[facility] [address] [place] [address]Dr. Grace Abdul CAST NONE SEEN Normal NONE SEEN [facility] Comment on above: Performed By: #### Anthony ELLISON UMICRO ####[facility] [address] [place] [address]Dr. Grace Abdul Crystals LM Nom (Urine sed) NONE SEEN Normal NONE SEEN [facility] Comment on above: Performed By: #### Anthony ELLISON UMICRO ####[facility] [address] [place] [address]Dr. Grace Abdul Epithelial cells LM Ql (Urine sed) RARE Normal NONE SEEN /RARE [facility] Comment on above: Performed By: #### Anthony ELLISON UMICRO ####[facility] [address] [place] [address]Dr. Grace Abdul MUCOUS NONE SEEN Normal NONE SEEN [facility] Comment on above: Performed By: #### Anthony ELLISON UMICRO ####[facility] [address] [place] [address]Dr. Grace Abdul RBC 0-2 Normal 0-2 [facility] Comment on above: Performed By: #### GINA FELDERRO ####[facility] [address] [place] [address]Dr. Grace Abdul WBC 0-2 Abnormal NONE SEEN [facility] Comment on above: Performed By: #### GINA FELDERRO ####[facility] [address] [place], [place] [address]DrLisette Abdul BNPon 12-11-2021 Natriuretic peptide B (Bld) [Mass/Vol] 665.0 pg/mL Normal <=1,800.0 [facility] Comment on above: Performed By: #### B MP #### [facility] [address] [place], [place] [address] Dr. Grace Abdul CBC AUTO DIFFon 12-11-2021 BASO # 0.0 103/ul Normal 0.0-0.1 [facility] Comment on above: Performed By: #### C BC ####[facility] [address] [place] [address]DrLisette Abdul Basophils/100 WBC (Bld) 0.5 % Normal 0.2-2.0 [facility] Comment on above: Performed By: #### C BC ####[facility] [address] [place] [address]DrLisette Abdul EO # 0.1 103/ul Normal 0.0-0.7 [facility] Comment on above: Performed By: #### C BC ####[facility] [address] [place] [address]Dr. Grace Abdul Eosinophils/100 WBC (Bld) 1.9 % Normal 0.9-7.0 [facility] Comment on above: Performed By: #### C BC ####[facility] [address] [place] [address]DrLisette Abdul Erythrocyte distribution width (RBC) [Ratio] 13.4 % Normal 11.0-15.0 [facility] Comment on above: Performed By: #### C BC ####[facility] [address] [place] [address]DrLisette Abdul Hematocrit (Bld) [Volume fraction] 36.2 % Normal 36.0-48.0 [facility] Comment on above: Performed By: #### C BC ####[facility] [address] [place] [address]DrLisette Abdul Hemoglobin (Bld) [Mass/Vol] 11.9 g/dL Critically low 12.0-16.0 [facility] Comment on above: Performed By: #### C BC ####[facility] [address] [place] [address]Dr. Grace Abdul IG # 0.01 10e3/ul Normal 0.00-0.03 [facility] Comment on above: Performed By: #### C BC ####[facility] [address] [place] [address]Dr. Grace Abdul IG % 0.2 % Normal 0.0-0.5 [facility] Comment on above: Performed By: #### C BC ####[facility] [address]ahrm[address] [place] [address]Dr. Grace Abdul LYMPH # 0.5 103/ul Critically low 1.2-3.8 [facility] Comment on above: Performed By: #### C BC ####[facility] [address] [place] [address]DrLisette Abdul Lymphocytes/100 WBC (Bld) 11.5 % Critically low 20.5-60.0 [facility] Comment on above: Performed By: #### C BC ####[facility] [address]bspw[address] [place] [address]DrLisette Abdul MANUAL DIFF REQ NO Normal [facility] Comment on above: Performed By: #### C BC ####[facility] [address] [place] [address]Dr. Grace Abdul MCH (RBC) [Entitic mass] 31.6 pg Normal 26.7-34.0 [facility] Comment on above: Performed By: #### C BC ####[facility] [address] [place] [address]Dr. Grace Abdul MCHC (RBC) [Mass/Vol] 32.9 g/dL Normal 29.9-35.2 [facility] Comment on above: Performed By: #### C BC ####[facility] [address] [place] [address]Dr. Grace Abdul MCV (RBC) [Entitic vol] 96.0 fL Normal 81.0-99.0 [facility] Comment on above: Performed By: #### C BC ####[facility] [address] [place] [id number]. Grace Abdul MONO # 0.6 103/ul Normal 0.3-0.8 [facility] Comment on above: Performed By: #### C BC ####[facility] [address] [place] [address]Dr. Grace Abdul Monocytes/100 WBC (Bld) 14.4 % Critically high 1.7-12.0 [facility] Comment on above: Performed By: #### C BC ####[facility] [address]zxxk[address] [place] [id number]. Grace Abdul NEUT # 3.0 103/ul Normal 1.4-6.5 [facility] Comment on above: Performed By: #### C BC ####[facility] [address]chr[address] [place] [address]Dr. Grace Abdul Neutrophils/100 WBC (Bld) 71.5 % Normal 43.0-75.0 [facility] Comment on above: Performed By: #### C BC ####[facility] [address]uxoclsp[address] [place] [id number]. Grace Abdul Platelet mean volume (Bld) [Entitic vol] 9.2 fL Critically low 9.5-13.5 [facility] Comment on above: Performed By: #### C BC ####[facility] [address]vbmbrgc[address] [place] [id number]. Grace Abdul PLT 290 103/ul Normal 150-450 [facility] Comment on above: Performed By: #### C BC ####[facility] [address]rm[address]pm[address] [place] [id number]. Grace Abdul RBC 3.77 106/ul Critically low 4.20-5.40 [facility] Comment on above: Performed By: #### C BC ####[facility] [address]mojfr[address] [place] [id number]. Grace Abdul WBC 4.2 103/ul Normal 4.0-11.0 [facility] Comment on above: Performed By: #### C BC ####[facility] [address] [place] [address]DrLisette Abdul FREE THYROXINE INDEX T7on FTI 2.63 Normal 1.30-4.50 [facility] Comment on above: Performed By: #### B MP #### [facility] [address] [address] [address] Grace Abdul T3U 35.0 % Normal 30.0-39.0 [facility] Comment on above: Performed By: #### B MP #### [facility] [address] [address] [address] Grace Abdul T4 [Mass/Vol] 7.50 ug/dL Normal 4.80-13.90 [facility] Comment on above: Performed By: #### B MP #### [facility] [address] [address] [address] Grace Abdul GLYCOHEMOGLOBIN A1Con 2021 ADA RECOMMENDATION SEE BELOW Normal [facility] Comment on above: Result Comment: ADA RECOMMENDED LIMIT 4.0 - 6.0 ADA THERAPEUTIC TARGET < 7.0 ACTION SUGGESTED > 7.0 Performed By: #### A 1C ####[facility] [address] [place], [place] [address]DrLisette Abdul Glucose [Mass/Vol] 111 mg/dL Normal [facility] Comment on above: Performed By: #### A 1C ####[facility] [address] [place] [address]DrLisette Abdul HbA1c (Bld) [Mass fraction] 5.5 % Normal 4.5-6.2 [facility] Comment on above: Performed By: #### A 1C ####[facility] [address] [place] [address]DrLisette Abdul IRONon 12-11-2021 Iron [Mass/Vol] 50.0 ug/dL Normal 50.0-170.0 [facility] Comment on above: Performed By: #### I KASANDRA WEBSTER, VITB12 ####[facility] [address] [place] [address]Dr. Grace Abdul LIPID PROFILEon 12-11-2021 CHOL-HDL RATIO NORM SEE BELOW Normal [facility] Comment on above: Result Comment: 3.3 - 4.4 LOW RISK 4.4 - 7.1 AVERAGE RISK 7.1 - 11.0 MODERATE RISK >11.0 HIGH RISK Performed By: #### B MP #### [facility] [address] [address] [address] Grace Abdul Cholesterol [Mass/Vol] 182 mg/dL Normal <=200 [facility] Comment on above: Performed By: #### B MP #### [facility] [address] [address] [address] Grace Abdul Cholesterol in HDL [Mass/Vol] 60 mg/dL Normal 40-60 [facility] Comment on above: Performed By: #### B MP #### [facility] [address] [address] [address] Grace Abdul Cholesterol in LDL [Mass/Vol] 101.2 mg/dL Normal [facility] Comment on above: Performed By: #### B MP #### [facility] [address] [address] [address] Grace Abdul Cholesterol.total/Ch olesterol in HDL [Mass ratio] 3.0 {ratio} Normal [facility] Comment on above: Performed By: #### B MP #### [facility] [address] [address] [address] Grace Abdul HDL NORMAL > or = 60 mg/dl - LO W CARDIOVASCULAR RISK <40 mg/dl - HIGH CARDIOVASCULAR RISK Normal [facility] Comment on above: Performed By: #### B MP #### [facility] [address] [address] [address] Grace Abdul LDL CALC NORMAL SEE BELOW Normal [facility] Comment on above: Result Comment: <100 mg/dl OPTIMAL 100 - 129 mg/dl NEAR OR ABOVE OPTIMAL 130 - 159 mg/dl BORDERLINE HIGH 160 - 189 mg/dl HIGH >190 mg/dl VERY HIGH Performed By: #### B MP #### [facility] [address] [address] [address] Grace Abdul Triglyceride [Mass/Vol] 104 mg/dL Normal <=150 [facility] Comment on above: Performed By: #### B MP #### [facility] [address] [place] [address] Dr. Grace Abdul VLDL CALC 20.8 mg/dL Normal [facility] Comment on above: Performed By: #### B MP #### [facility] [address] [place] [address] Dr. Grace Abdul PROF 14(COMP METB)on 022 Albumin [Mass/Vol] 3.5 g/dL Normal 3.4-5.0 [facility] Comment on above: Performed By: #### B MP #### [facility] [address] [place] [address] Dr. Grace Abdul Albumin/Globulin [Mass ratio] 1.0 {ratio} Normal [facility] Comment on above: Performed By: #### B MP #### [facility] [address] [place] [address] Dr. Grace Abdul ALP [Catalytic activity/Vol] 55 U/L Normal 46-116 [facility] Comment on above: Performed By: #### B MP #### [facility] [address] [place] [address] Dr. Grace Abdul ALT [Catalytic activity/Vol] 21 U/L Normal 14-59 [facility] Comment on above: Performed By: #### B MP #### [facility] [address] [place] [address] Dr. Grace Abdul Anion gap [Moles/Vol] 9.3 mmol/L Normal [facility] Comment on above: Performed By: #### B MP #### [facility] [address] [place] [address] Dr. Grace Abdul AST [Catalytic activity/Vol] 21 U/L Normal 15-37 [facility] Comment on above: Performed By: #### B MP #### [facility] [address] [place] [address] Dr. Grace Abdul Bilirubin [Mass/Vol] 0.3 mg/dL Normal 0.2-1.0 [facility] Comment on above: Performed By: #### B MP #### [facility] [address] [address] [address] Grace Abdul Calcium [Mass/Vol] 9.5 mg/dL Normal 8.5-10.1 [facility] Comment on above: Performed By: #### B MP #### [facility] [address] [address] [address] Grace Abdul Chloride [Moles/Vol] 102 mmol/L Normal 98-107 [facility] Comment on above: Performed By: #### B MP #### [facility] [address] [address] [address] Grace Abdul CO2 [Moles/Vol] 28.5 mmol/L Normal 21.0-32.0 [facility] Comment on above: Performed By: #### B MP #### [facility] [address] [address] [address] Grace Abdul Creatinine [Mass/Vol] 1.04 mg/dL Critically high 0.55-1.02 [facility] Comment on above: Performed By: #### B MP #### [facility] [address] [address] [address] Grace Abdul EGFR-AF TRISTANIAN >60 Normal >=60 [facility] Comment on above: Performed By: #### B MP #### [facility] [address] [address] [address] Grace Abdul EGFR-NON AF TRISTANIAN 51 mL/min/1.73m2 Critically low >=60 [facility] Comment on above: Performed By: #### B MP #### [facility] [address] [address] [address] Grace Abdul Globulin (S) [Mass/Vol] 3.5 g/dL Normal [facility] Comment on above: Performed By: #### B MP #### [facility] [address] [address] [address] Grace Abdul Glucose [Mass/Vol] 102 mg/dL Normal 74-106 [facility] Comment on above: Performed By: #### B MP #### [facility] [address] [address] [address] Grace Abdul Potassium [Moles/Vol] 3.8 mmol/L Normal 3.5-5.1 [facility] Comment on above: Performed By: #### B MP #### [facility] [address] [address] [address] Grace Abdul Protein [Mass/Vol] 7.0 g/dL Normal 6.4-8.2 [facility] Comment on above: Performed By: #### B MP #### [facility] [address] [address] [address] Grace Abdul Sodium [Moles/Vol] 136 mmol/L Normal 136-145 [facility] Comment on above: Performed By: #### B MP #### [facility] [address] [address] [address] Grace Abdul Urea nitrogen [Mass/Vol] 20.0 mg/dL Critically high 7.0-18.0 [facility] Comment on above: Performed By: #### B MP #### [facility] [address] [address] [address] Grace Abdul Urea nitrogen/Creatinine [Mass ratio] 19.2 mg/mg Normal [facility] Comment on above: Performed By: #### B MP #### [facility] [address] [address] [address] Grace Abdul TSHon 12-11-2021 TSH 0.247 uIU/mL Critically low 0.358-3.740 [facility] Comment on above: Performed By: #### B MP #### [facility] [address] [address] [address] Grace Abdul VITAMIN B12on 12-11-2021 Cobalamin (Vitamin B12) [Mass/Vol] 762.0 pg/mL Normal 193.0-986.0 [facility] Comment on above: Performed By: #### I DARIN, VITAD, VITB12 ####[facility] [address] [place] [address]Dr. Grace Abdul VITAMIN D 25 OHon 12-11-2021 VIT D 25-OH 54.9 ng/mL Normal [facility] Comment on above: Performed By: #### I DARIN VITAD, VITB12 ####[facility] [address] [place], [place] [address]Sb. Grace Abdul VIT D RANGES SEE BELOW Normal [facility] Comment on above: Result Comment: <20 ng/mL Vit D deficient 20 - <30 ng/mL Vit D insufficient 30 - 100 ng/mL Vit D sufficient >100 ng/mL Potential Toxicity Performed By: #### I DARIN VITAD, VITB12 ####[facility] [address] [place], [place] [address]Ed. Grace Franko MG MAMM SCREEN 3D CLEMENCIA CADon 11-25-2021 MG MAMM SCREEN 3D CLEMENCIA CAD Patient: ALEXA DELGADO Exam Date: 11/25/2021 : 1940 Gender:F Ordering : DR GALINA ROGERS . Admission #: [id number] Family : DR ELOISA MORALES Order #: [id number] CLICK HERE TO VIEW EXAM RADIOLOGY REPORT [...] Treatments None Family Cancers None LOCATION: [facility] BREAST COMPOSITION: Scattered areas fibroglandular density. [...] MD on 11/25/2021 at 14:14 Normal [facility] CULTURE URINEon 11-24-2021 CULTURE URINE Culture Observations : LIGHT GROWTH OF MIXED GENITAL ALANIS. NO POTENTIAL PATHOGENS SEEN. Normal [facility] Comment on above: Performed By: #### U RCX ####[facility] [address] [place] [address]Dr. Grace Abdul GI PANEL (PCR)on 11-24-2021 Adenovirus F 40/41 Not detected Normal NOT DETECTED [facility] Comment on above: Performed By: #### C BC #### [facility] [address] [place] [address] Dr. Grace Abdul Astrovirus Not detected Normal NOT DETECTED [facility] Comment on above: Performed By: #### C BC #### [facility] [address] [place] [address] Dr. Grace Dorman. Diff toxin A/B Not detected Normal NOT DETECTED [facility] Comment on above: Performed By: #### C BC #### [facility] [address] [place] [address] Dr. Grace Abdul Campylobacter Not detected Normal NOT DETECTED [facility] Comment on above: Performed By: #### C BC #### [facility] [address] [place] [address] Dr. Grace Abdul Cryptosporidium Not detected Normal NOT DETECTED [facility] Comment on above: Performed By: #### C BC #### [facility] [address] [place] [address] Dr. Grace Abdul Cyclos. Cayetanensis Not detected Normal NOT DETECTED [facility] Comment on above: Performed By: #### C BC #### [facility] [address] [place] [address] Dr. Grace Abdul E. Coli O157 Not Applicable Normal Not Applicable [facility] Comment on above: Performed By: #### C BC #### [facility] [address] [place] [address] Dr. Grace Abdul E. histolytica Not detected Normal NOT DETECTED [facility] Comment on above: Performed By: #### C BC #### [facility] [address] [place] [address] Dr. Grace Abdul EAEC Not detected Normal NOT DETECTED [facility] Comment on above: Performed By: #### C BC #### [facility] [address] [place] [address] Dr. Grace Abdul EIEC Not detected Normal NOT DETECTED [facility] Comment on above: Performed By: #### C BC #### [facility] [address] [address] [address] Grace Abdul EPEC Not detected Normal NOT DETECTED [facility] Comment on above: Performed By: #### C BC #### [facility] [address] [place] [address] Dr. Grace Abdul ETEC Not detected Normal NOT DETECTED [facility] Comment on above: Performed By: #### C BC #### [facility] [address] [place] [address] Dr. Grace Smithlivanda Not detected Normal NOT DETECTED [facility] Comment on above: Performed By: #### C BC #### [facility] [address] [place] [address] Dr. Grace MCKEON CONTROLS PASSED Normal [facility] Comment on above: Performed By: #### C BC #### [facility] [address] [place] [address] Dr. Grace DIETRICH HEADER GI PANEL BACTERIA Normal [facility] Comment on above: Performed By: #### C BC #### [facility] [address] [place] [address] Dr. Grace SANDERS ECOLI GI PANEL DIARRHEAGEN IC E.COLI / SHIGELLA Normal [facility] Comment on above: Performed By: #### C BC #### [facility] [address] [place] [address] Dr. Grace SANDERS INFO SEE BELOW [facility] Comment on above: Result Comment: EAEC - Enteroaggregative E. Coli EPEC- Enteropathogenic E. Coli ETEC- Enterotoxigenic E. Coli lt/st STEC- Shigella-like toxin-producing E. Coli stx1/stx2 EIEC- Shigella/Enteroinvasive E. Coli Performed By: #### C BC #### [facility] [address] [place], [place] [id number] Dr. Grace SANDERS PARASITES GI PANEL PARASITES Normal [facility] Comment on above: Performed By: #### C BC #### [facility] [address] [place] [address] Dr. Grace SANDERS VIRUS GI PANEL VIRUSES Normal [facility] Comment on above: Performed By: #### C BC #### [facility] [address] [place] [address] Dr. Grace Abdul Norovirus GI/GII Not detected Normal NOT DETECTED [facility] Comment on above: Performed By: #### C BC #### [facility] [address] [place] [address] Dr. Grace Abdul P. Shigelloides Not detected Normal NOT DETECTED [facility] Comment on above: Performed By: #### C BC #### [facility] [address] [place] [address] Dr. Grace Abdul Rotavirus A Not detected Normal NOT DETECTED [facility] Comment on above: Performed By: #### C BC #### [facility] [address] [place] [address] Dr. Grace Abdul Salmonella Not detected Normal NOT DETECTED [facility] Comment on above: Performed By: #### C BC #### [facility] [address] [place] [address] Dr. Grace Abdul Sapovirus Not detected Normal NOT DETECTED [facility] Comment on above: Performed By: #### C BC #### [facility] [address] [place] [address] Dr. Grace Abdul STEC Not detected Normal NOT DETECTED [facility] Comment on above: Performed By: #### C BC #### [facility] [address] [place] [address] Dr. Grace Abdul Vibrio Not detected Normal NOT DETECTED [facility] Comment on above: Performed By: #### C BC #### [facility] [address] [place] [address] Dr. Grace Abdul Vibrio Cholera Not detected Normal NOT DETECTED [facility] Comment on above: Performed By: #### C BC #### [facility] [address] [address] [address] Grace Blue Enterocolitica Not detected Normal NOT DETECTED [facility] Comment on above: Performed By: #### C BC #### [facility] [address] [address] [address] Grace Abdul UA RANDOM W/MICROSCOPICon BACTERIA NONE SEEN Normal NONE SEEN [facility] Comment on above: Performed By: #### U AMIC ####[facility] [address] [place] [address]Dr. Grace Abdul Bilirubin Ql (U) Negative Normal NEGATIVE [facility] Comment on above: Performed By: #### U AMIC ####[facility] [address] [place] [address]Dr. Grace Abdul CAST NONE SEEN Normal NONE SEEN [facility] Comment on above: Performed By: #### U AMIC ####[facility] [address] [place] [address]Dr. Grace Abdul Clarity (U) CLEAR Normal CLEAR [facility] Comment on above: Performed By: #### U AMIC ####[facility] [address] [place] [address]Dr. Grace Abdul Color (U) LT. YELLOW Normal YELLOW [facility] Comment on above: Performed By: #### U AMIC ####[facility] [address] [place] [address]Dr. Grace Abdul Crystals LM Nom (Urine sed) NONE SEEN Normal NONE SEEN [facility] Comment on above: Performed By: #### U AMIC ####[facility] [address] [address]Dr. Grace Abdul Epithelial cells LM Ql (Urine sed) FEW Abnormal NONE SEEN /RARE [facility] Comment on above: Performed By: #### U AMIC ####[facility] [address] [place] [address]Dr. Grace Abdul Glucose Ql (U) Negative Normal NEGATIVE [facility] Comment on above: Performed By: #### U AMIC ####[facility] [address] [place] [address]Dr. Grace Abdul Hemoglobin Ql (U) TRACE-INTACT Abnormal NEGATIVE [facility] Comment on above: Performed By: #### U AMIC ####[facility] [address] [place] [address]Dr. Grace Abdul Ketones Ql (U) Negative Normal NEGATIVE [facility] Comment on above: Performed By: #### U AMIC ####[facility] [address] [place], [place] [address]Dr. Grace Abdul LEUKOCYTES Negative Normal NEGATIVE [facility] Comment on above: Performed By: #### U AMIC ####[facility] [address] [place], [place] [address]Dr. Grace Abdul MUCOUS NONE SEEN Normal NONE SEEN [facility] Comment on above: Performed By: #### U AMIC ####[facility] [address] [place], [place] [address]Dr. Grace Franko Nitrite Ql (U) Negative Normal NEGATIVE [facility] Comment on above: Performed By: #### U AMIC ####[facility] [address] [place], [place] [address]Dr. Grace Abdul pH (U) 7.5 [pH] Normal 5-9 [facility] Comment on above: Performed By: #### U AMIC ####[facility] [address] [place], [place] [address]Dr. Grace Abdul RBC 0-2 Normal 0-2 [facility] Comment on above: Performed By: #### U AMIC ####[facility] [address] [place], [place] [address]Dr. Benitalee ann Abdul SPEC GRAVITY 1.010 Normal 1.005-<=1.025 [facility] Comment on above: Performed By: #### U AMIC ####[facility] [address] [place], [place] [address]Dr. Grace Abdul UA PROTEIN Negative Normal NEGATIVE/ TRACE [facility] Comment on above: Performed By: #### U AMIC ####[facility] [address] [place] [address] Grace Abdul Urobilinogen Qn (U) 0.2 {Ashley'U}/dL Normal 0.2 - 1. 0 [facility] Comment on above: Performed By: #### U AMIC ####[facility] [address] [id number] Abdul WBC NONE SEEN Normal NONE SEEN [facility] Comment on above: Performed By: #### U AMIC ####[facility] [address] [place] [id number]. Grace Abdul CBC AUTO DIFFon 11-23-2021 BASO # 0.0 103/ul Normal 0.0-0.1 [facility] Comment on above: Performed By: #### C BC #### [facility] [address] [address] [address] Grace Abdul Basophils/100 WBC (Bld) 0.4 % Normal 0.2-2.0 [facility] Comment on above: Performed By: #### C BC #### [facility] [address] [address] [address] Grace Abdul EO # 0.1 103/ul Normal 0.0-0.7 [facility] Comment on above: Performed By: #### C BC #### [facility] [address] [address] [address] Grace Abdul Eosinophils/100 WBC (Bld) 1.5 % Normal 0.9-7.0 [facility] Comment on above: Performed By: #### C BC #### [facility] [address] [address] [address] Grace Abdul Erythrocyte distribution width (RBC) [Ratio] 13.2 % Normal 11.0-15.0 [facility] Comment on above: Performed By: #### C BC #### [facility] [address] [address] [address] Grace Abdul Hematocrit (Bld) [Volume fraction] 31.9 % Critically low 36.0-48.0 [facility] Comment on above: Performed By: #### C BC #### [facility] [address] [address] [address] Grace Abdul Hemoglobin (Bld) [Mass/Vol] 10.5 g/dL Critically low 12.0-16.0 [facility] [facility] Comment on above: Performed By: #### C BC #### [facility] [address] [address] [address] Grace Abdul IG # 0.01 10e3/ul Normal 0.00-0.03 [facility] Comment on above: Performed By: #### C BC #### [facility] [address] [place] [address] Dr. Grace Abdul IG % 0.2 % Normal 0.0-0.5 [facility] Comment on above: Performed By: #### C BC #### [facility] [address] [place] [address] Dr. Grace Abdul LYMPH # 0.7 103/ul Critically low 1.2-3.8 [facility] Comment on above: Performed By: #### C BC #### [facility] [address] [place] [address] Dr. Grace Abdul Lymphocytes/100 WBC (Bld) 14.8 % Critically low 20.5-60.0 [facility] Comment on above: Performed By: #### C BC #### [facility] [address] [place] [address] Dr. Grace Abdul MANUAL DIFF REQ NO Normal [facility] Comment on above: Performed By: #### C BC #### [facility] [address] [place] [address] Dr. Grace Abdul MCH (RBC) [Entitic mass] 31.4 pg Normal 26.7-34.0 [facility] Comment on above: Performed By: #### C BC #### [facility] [address] [place] [address] Dr. Grace Abdul MCHC (RBC) [Mass/Vol] 32.9 g/dL Normal 29.9-35.2 [facility] Comment on above: Performed By: #### C BC #### [facility] [address] [place], [place] [id number] Dr. Grace Abdul MCV (RBC) [Entitic vol] 95.5 fL Normal 81.0-99.0 [facility] Comment on above: Performed By: #### C BC #### [facility] [address] [place] [address] Dr. Grace Abdul MONO # 0.6 103/ul Normal 0.3-0.8 [facility] Comment on above: Performed By: #### C BC #### [facility] [address] [place] [address] Dr. Grace Abdul Monocytes/100 WBC (Bld) 13.4 % Critically high 1.7-12.0 [facility] Comment on above: Performed By: #### C BC #### [facility] [address] [place] [address] Dr. Grace Abdul NEUT # 3.3 103/ul Normal 1.4-6.5 [facility] Comment on above: Performed By: #### C BC #### [facility] [address] [place] [address] Dr. Grace Abdul Neutrophils/100 WBC (Bld) 69.7 % Normal 43.0-75.0 [facility] Comment on above: Performed By: #### C BC #### [facility] [address] [place] [address] Dr. Grace Abdul Platelet mean volume (Bld) [Entitic vol] 9.1 fL Critically low 9.5-13.5 [facility] Comment on above: Performed By: #### C BC #### [facility] [address] [place] [address] Dr. Grace Abdul PLT 335 103/ul Normal 150-450 [facility] Comment on above: Performed By: #### C BC #### [facility] [address] [place] [address] Dr. Grace Abdul RBC 3.34 106/ul Critically low 4.20-5.40 [facility] Comment on above: Performed By: #### C BC #### [facility] [address] [place] [address] Dr. Grace Abdul WBC 4.8 103/ul Normal 4.0-11.0 [facility] Comment on above: Performed By: #### C BC #### [facility] [address] [place], [place] [address] Dr. Grace Abdul FREE THYROXINE INDEX T7on FTI 1.15 Critically low 1.30-4.50 [facility] Comment on above: Performed By: #### T 7, CMP, TSH ####[facility] [address] [id number] Abdul T3U 31.0 % Normal 30.0-39.0 [facility] Comment on above: Performed By: #### T 7, CMP, TSH ####[facility] [address] [id number] Abdul T4 [Mass/Vol] 3.70 ug/dL Critically low 4.80-13.90 [facility] Comment on above: Performed By: #### T 7, CMP, TSH ####[facility] [address] [id number] Abdul IRONon 11-23-2021 Iron [Mass/Vol] 52.0 ug/dL Normal 50.0-170.0 [facility] Comment on above: Performed By: #### C VDTB #### [facility] [address] [place], [place] [address] Dr. Grace Abdul PROF 14(COMP METB)on 022 Albumin [Mass/Vol] 3.5 g/dL Normal 3.4-5.0 [facility] Comment on above: Performed By: #### T 7, CMP, TSH ####[facility] [address] [id number] Abdul Albumin/Globulin [Mass ratio] 1.1 {ratio} Normal [facility] Comment on above: Performed By: #### T 7, CMP, TSH ####[facility] [address] [id number] Abdul ALP [Catalytic activity/Vol] 69 U/L Normal 46-116 [facility] Comment on above: Performed By: #### T 7, CMP, TSH ####[facility] [address] [address]Dr. Grace Abdul ALT [Catalytic activity/Vol] 51 U/L Normal 14-59 [facility] Comment on above: Performed By: #### T 7, CMP, TSH ####[facility] [address] [address]Dr. Grace Abdul Anion gap [Moles/Vol] 11.5 mmol/L Normal [facility] Comment on above: Performed By: #### T 7, CMP, TSH ####[facility] [address] [place], [place] [address]Dr. Grace Abdul AST [Catalytic activity/Vol] 24 U/L Normal 15-37 [facility] Comment on above: Performed By: #### T 7, CMP, TSH ####[facility] [address] [place], [place] [address]Dr. Grace Abdul Bilirubin [Mass/Vol] 0.2 mg/dL Normal 0.2-1.0 [facility] Comment on above: Performed By: #### T 7, CMP, TSH ####[facility] [address] [place], [place] [address]Dr. Grace Abdul Calcium [Mass/Vol] 9.3 mg/dL Normal 8.5-10.1 [facility] Comment on above: Performed By: #### T 7, CMP, TSH ####[facility] [address] [place], [place] [address]Dr. Grace Abdul Chloride [Moles/Vol] 98 mmol/L Normal 98-107 [facility] Comment on above: Performed By: #### T 7, CMP, TSH ####[facility] [address] [place], [place] [address]Dr. Grace Abdul CO2 [Moles/Vol] 28.7 mmol/L Normal 21.0-32.0 [facility] Comment on above: Performed By: #### T 7, CMP, TSH ####[facility] [address] [place], [place] [address]Dr. Grace Abdul Creatinine [Mass/Vol] 1.11 mg/dL Critically high 0.55-1.02 [facility] Comment on above: Performed By: #### T 7, LOENOR, TSH ####[facility] [address] [address]Dr. Grace Abdul EGFR-AF TRISTANIAN 57 mL/min/1.73m2 Critically low >=60 [facility] Comment on above: Performed By: #### T 7, CMP, TSH ####[facility] [address] [address]Dr. Grace Abdul EGFR-NON AF TRISTANIAN 47 mL/min/1.73m2 Critically low >=60 [facility] Comment on above: Performed By: #### Ainsley 7, LEONOR, TSH ####[facility] [address] [place], [place] [address]Dr. Benitalee ann Abdul Globulin (S) [Mass/Vol] 3.3 g/dL Normal [facility] Comment on above: Performed By: #### T 7, CMP, TSH ####[facility] [address] [place], [place] [address]Dr. Grace Franko Glucose [Mass/Vol] 88 mg/dL Normal 74-106 [facility] Comment on above: Performed By: #### T 7, CMP, TSH ####[facility] [address] [address]Dr. Benitalee ann Abdul Potassium [Moles/Vol] 4.2 mmol/L Normal 3.5-5.1 [facility] Comment on above: Performed By: #### T 7, CMP, TSH ####[facility] [address] [address]Dr. Grace Abdul Protein [Mass/Vol] 6.8 g/dL Normal 6.4-8.2 [facility] Comment on above: Performed By: #### T 7, CMP, TSH ####[facility] [address] [address]Dr. Benitalee ann Abdul Sodium [Moles/Vol] 134 mmol/L Critically low 136-145 [facility] Comment on above: Performed By: #### T 7, CMP, TSH ####[facility] [address] [address]DrLisette Abdul Urea nitrogen [Mass/Vol] 33.0 mg/dL Critically high 7.0-18.0 [facility] Comment on above: Performed By: #### T 7, CMP, TSH ####[facility] [address] [address]DrLisette Abdul Urea nitrogen/Creatinine [Mass ratio] 29.7 mg/mg Normal [facility] Comment on above: Performed By: #### T 7, CMP, TSH ####[facility] [address] [address]DrLisette Abdul TSHon 11-23-2021 TSH 0.469 uIU/mL Normal 0.358-3.740 [facility] Comment on above: Performed By: #### T 7, CMP, TSH ####[facility] [address] [address]DrLisette Abdul CBC AUTO DIFFon 11-17-2021 BASO # 0.0 103/ul Normal 0.0-0.1 [facility] Comment on above: Performed By: #### C VDTBH #### [facility] [address] [place] [address] Dr. Grace Abdul Basophils/100 WBC (Bld) 0.2 % Normal 0.2-2.0 [facility] Comment on above: Performed By: #### C VDTBH #### [facility] [address] [place] [address] Dr. Grace Abdul EO # 0.1 103/ul Normal 0.0-0.7 [facility] Comment on above: Performed By: #### C VDTBH #### [facility] [address] [place] [address] Dr. Grace Abdul Eosinophils/100 WBC (Bld) 0.9 % Normal 0.9-7.0 [facility] Comment on above: Performed By: #### C VDTBH #### [facility] [address] [place] [address] Dr. Grace Abdul Erythrocyte distribution width (RBC) [Ratio] 12.8 % Normal 11.0-15.0 [facility] Comment on above: Performed By: #### C VDTBH #### [facility] [address] [place] [address] Dr. Grace Abdul Hematocrit (Bld) [Volume fraction] 35.2 % Critically low 36.0-48.0 [facility] Comment on above: Performed By: #### C VDTBH #### [facility] [address] [place] [address] Dr. Grace Abdul Hemoglobin (Bld) [Mass/Vol] 12.1 g/dL Normal 12.0-16.0 [facility] Comment on above: Performed By: #### C VDTBH #### [facility] [address] [place] [address] Dr. Grace Abdul IG # 0.05 10e3/ul Critically high 0.00-0.03 [facility] Comment on above: Performed By: #### C VDTBH #### [facility] [address] [place] [address] Dr. Grace Abdul IG % 0.6 % Critically high 0.0-0.5 [facility] Comment on above: Performed By: #### C VDTBH #### [facility] [address] [place] [address] Dr. Grace Abdul LYMPH # 0.6 103/ul Critically low 1.2-3.8 [facility] Comment on above: Performed By: #### C VDTBH #### [facility] [address] [place] [address] Dr. Grace Abdul Lymphocytes/100 WBC (Bld) 7.4 % Critically low 20.5-60.0 [facility] Comment on above: Performed By: #### C VDTBH #### [facility] [address] [place] [address] Dr. Grace Abdul MANUAL DIFF REQ NO Normal [facility] Comment on above: Performed By: #### C VDTBH #### [facility] [address] [address] [address] Grace Abdul MCH (RBC) [Entitic mass] 31.5 pg Normal 26.7-34.0 [facility] Comment on above: Performed By: #### C VDTBH #### [facility] [address] [place] [address] Dr. Grace Abdul MCHC (RBC) [Mass/Vol] 34.4 g/dL Normal 29.9-35.2 [facility] Comment on above: Performed By: #### C VDTBH #### [facility] [address] [place] [address] Dr. Grace Abdul MCV (RBC) [Entitic vol] 91.7 fL Normal 81.0-99.0 [facility] Comment on above: Performed By: #### C VDTBH #### [facility] [address] [place] [address] Dr. Grace Abdul MONO # 1.0 103/ul Critically high 0.3-0.8 [facility] Comment on above: Performed By: #### C VDTBH #### [facility] [address] [place] [address] Dr. Grace Abdul Monocytes/100 WBC (Bld) 12.1 % Critically high 1.7-12.0 [facility] Comment on above: Performed By: #### C VDTBH #### [facility] [address] [place] [address] Dr. Grace Abdul NEUT # 6.3 103/ul Normal 1.4-6.5 [facility] Comment on above: Performed By: #### C VDTBH #### [facility] [address] [place] [address] Dr. Grace Abdul Neutrophils/100 WBC (Bld) 78.8 % Critically high 43.0-75.0 [facility] Comment on above: Performed By: #### C VDTBH #### [facility] [address] [place] [address] Dr. Grace Abdul Platelet mean volume (Bld) [Entitic vol] 9.1 fL Critically low 9.5-13.5 [facility] Comment on above: Performed By: #### C VDTBH #### [facility] [address] [place] [address] Dr. rGace Abdul PLT 281 103/ul Normal 150-450 [facility] Comment on above: Performed By: #### C VDTBH #### [facility] [address] [place] [address] Dr. Grace Abdul RBC 3.84 106/ul Critically low 4.20-5.40 [facility] Comment on above: Performed By: #### C VDTBH #### [facility] [address] [place] [address] Dr. Grace Abdul WBC 8.0 103/ul Normal 4.0-11.0 [facility] Comment on above: Performed By: #### C VDTBH #### [facility] [address] [place] [address] Dr. Grace Abdul MAGNESIUMon 11-17-2021 Magnesium [Mass/Vol] 1.9 mg/dL Normal 1.8-2.4 [facility] Comment on above: Performed By: #### C VDTBH #### [facility] [address] [place] [address] Dr. Grace Abdul PROF CHEM 8 (BAS METB)on Anion gap [Moles/Vol] 13.9 mmol/L Normal [facility] Comment on above: Performed By: #### C VDTBH #### [facility] [address] [place] [address] Dr. Grace Abdul Calcium [Mass/Vol] 8.7 mg/dL Normal 8.5-10.1 [facility] Comment on above: Performed By: #### C VDTBH #### [facility] [address] [place] [address] Dr. Grace Abdul Chloride [Moles/Vol] 101 mmol/L Normal 98-107 [facility] Comment on above: Performed By: #### C VDTBH #### [facility] [address] [place] [address] Dr. Grace Abdul CO2 [Moles/Vol] 24.3 mmol/L Normal 21.0-32.0 [facility] Comment on above: Performed By: #### C VDTBH #### [facility] [address] [place] [address] Dr. Grace Abdul Creatinine [Mass/Vol] 0.89 mg/dL Normal 0.55-1.02 [facility] Comment on above: Performed By: #### C VDTBH #### [facility] [address] [address] [address] Grace Abdul EGFR-AF TRISTANIAN >60 Normal >=60 [facility] Comment on above: Performed By: #### C VDTBH #### [facility] [address] [address] [address] Grace Abdul EGFR-NON AF TRISTANIAN >60 Normal >=60 [facility] Comment on above: Performed By: #### C VDTBH #### [facility] [address] [place] [address] Dr. Grace Abdul Glucose [Mass/Vol] 97 mg/dL Normal 74-106 [facility] Comment on above: Performed By: #### C VDTBH #### [facility] [address] [address] [address] Grace Abdul Potassium [Moles/Vol] 3.2 mmol/L Critically low 3.5-5.1 [facility] Comment on above: Performed By: #### C VDTBH #### [facility] [address] [place] [address] Dr. Grace Abdul Sodium [Moles/Vol] 136 mmol/L Normal 136-145 [facility] Comment on above: Performed By: #### C VDTBH #### [facility] [address] [address] [address] Grace Abdul Urea nitrogen [Mass/Vol] 14.0 mg/dL Normal 7.0-18.0 [facility] Comment on above: Performed By: #### C VDTBH #### [facility] [address] [address] [address] Grace Abdul Urea nitrogen/Creatinine [Mass ratio] 15.7 mg/mg Normal [facility] Comment on above: Performed By: #### C VDTBH #### [facility] [address] [place] [address] Dr. Grace Abdul CBC AUTO DIFFon 11-16-2021 BASO # 0.0 103/ul Normal 0.0-0.1 [facility] Comment on above: Performed By: #### B MP #### [facility] [address] [place] [address] Dr. Grace Abdul Basophils/100 WBC (Bld) 0.2 % Normal 0.2-2.0 [facility] Comment on above: Performed By: #### B MP #### [facility] [address] [place] [address] Dr. Grace Abdul EO # 0.0 103/ul Normal 0.0-0.7 [facility] Comment on above: Performed By: #### B MP #### [facility] [address] [place] [address] Dr. Grace Abdul Eosinophils/100 WBC (Bld) 0.5 % Critically low 0.9-7.0 [facility] Comment on above: Performed By: #### B MP #### [facility] [address] [place] [address] Dr. Grace Abdul Erythrocyte distribution width (RBC) [Ratio] 12.4 % Normal 11.0-15.0 [facility] Comment on above: Performed By: #### B MP #### [facility] [address] [place] [address] Dr. Grace Abdul Hematocrit (Bld) [Volume fraction] 33.6 % Critically low 36.0-48.0 [facility] Comment on above: Performed By: #### B MP #### [facility] [address] [place] [address] Dr. Grace Abdul Hemoglobin (Bld) [Mass/Vol] 11.8 g/dL Critically low 12.0-16.0 [facility] Comment on above: Performed By: #### B MP #### [facility] [address] [place] [address] Dr. Grace Abdul IG # 0.04 10e3/ul Critically high 0.00-0.03 [facility] Comment on above: Performed By: #### B MP #### [facility] [address] [place] [address] Dr. Grace Abdul IG % 0.7 % Critically high 0.0-0.5 [facility] Comment on above: Performed By: #### B MP #### [facility] [address] [place] [address] Dr. Grace Abdul LYMPH # 0.7 103/ul Critically low 1.2-3.8 [facility] Comment on above: Performed By: #### B MP #### [facility] [address] [place] [address] Dr. Grace Abdul Lymphocytes/100 WBC (Bld) 11.1 % Critically low 20.5-60.0 [facility] Comment on above: Performed By: #### B MP #### [facility] [address] [place] [address] Dr. Grace Abdul MANUAL DIFF REQ NO Normal [facility] Comment on above: Performed By: #### B MP #### [facility] [address] [place] [address] Dr. Grace Abdul MCH (RBC) [Entitic mass] 31.5 pg Normal 26.7-34.0 [facility] Comment on above: Performed By: #### B MP #### [facility] [address] [place] [address] Dr. Grace Abdul MCHC (RBC) [Mass/Vol] 35.1 g/dL Normal 29.9-35.2 [facility] Comment on above: Performed By: #### B MP #### [facility] [address] [place] [address] Dr. Grace Abdul MCV (RBC) [Entitic vol] 89.6 fL Normal 81.0-99.0 [facility] Comment on above: Performed By: #### B MP #### [facility] [address] [place] [address] Dr. Grace Abdul MONO # 0.9 103/ul Critically high 0.3-0.8 [facility] Comment on above: Performed By: #### B MP #### [facility] [address] [address] [address] Grace Abdul Monocytes/100 WBC (Bld) 14.0 % Critically high 1.7-12.0 [facility] Comment on above: Performed By: #### B MP #### [facility] [address] [address] [address] Grace Abdul NEUT # 4.5 103/ul Normal 1.4-6.5 [facility] Comment on above: Performed By: #### B MP #### [facility] [address] [place] [address] Dr. Grace Abdul Neutrophils/100 WBC (Bld) 73.5 % Normal 43.0-75.0 [facility] Comment on above: Performed By: #### B MP #### [facility] [address] [place] [address] Dr. Grace Abdul Platelet mean volume (Bld) [Entitic vol] 9.3 fL Critically low 9.5-13.5 [facility] Comment on above: Performed By: #### B MP #### [facility] [address] [place] [address] Dr. Grace Abdul PLT 292 103/ul Normal 150-450 [facility] Comment on above: Performed By: #### B MP #### [facility] [address] [place] [address] Dr. Grace Abdul RBC 3.75 106/ul Critically low 4.20-5.40 [facility] Comment on above: Performed By: #### B MP #### [facility] [address] [place] [address] Dr. Grace Abdul WBC 6.1 103/ul Normal 4.0-11.0 [facility] Comment on above: Performed By: #### B MP #### [facility] [address] [place] [address] Dr. Grace Abdul CULTURE URINEon 11-16-2021 CULTURE URINE Culture Observations : LIGHT GROWTH OF MIXED GENITAL ALANIS. NO POTENTIAL PATHOGENS SEEN. Normal [facility] Comment on above: Performed By: #### U RCX ####[facility] [address] [address]Dr. Grace HERNANDEZ URINE PROFILEon 2 Bilirubin Ql (U) Negative Normal NEGATIVE [facility] Comment on above: Performed By: #### C VDTBH #### [facility] [address] [address] [address] Grace Abdul Clarity (U) CLEAR Normal CLEAR [facility] Comment on above: Performed By: #### C VDTBH #### [facility] [address] [address] [address] Grace Abdul Color (U) LT. YELLOW Normal YELLOW [facility] Comment on above: Performed By: #### C VDTBH #### [facility] [address] [place] [address] Dr. Grace HIGGINS A micrscopic examination will be performed if indicated. Normal [facility] Comment on above: Performed By: #### C VDTBH #### [facility] [address] [place] [address] Dr. Grace Abdul Glucose Ql (U) Negative Normal NEGATIVE [facility] Comment on above: Performed By: #### C VDTBH #### [facility] [address] [place] [address] Dr. Grace Abdul Hemoglobin Ql (U) SMALL Abnormal NEGATIVE [facility] Comment on above: Performed By: #### C VDTBH #### [facility] [address] [address] [address] Grace Abudl Ketones Ql (U) 40 mg/dl Abnormal NEGATIVE [facility] Comment on above: Performed By: #### C VDTBH #### [facility] [address] [place] [address] Dr. Grace Abdul LEUKOCYTES SMALL Abnormal NEGATIVE [facility] Comment on above: Performed By: #### C VDTBH #### [facility] [address] [address] [address] Grace Abdul Nitrite Ql (U) Negative Normal NEGATIVE [facility] Comment on above: Performed By: #### C VDTBH #### [facility] [address] [place] [address] Dr. Grace Abdul pH (U) 7.0 [pH] Normal 5-9 [facility] Comment on above: Performed By: #### C VDTBH #### [facility] [address] [place] [address] Dr. Grace Abdul SPEC GRAVITY 1.010 Normal 1.005-<=1.025 [facility] Comment on above: Performed By: #### C VDTBH #### [facility] [address] [place] [address] Dr. Grace Abdul UA PROTEIN Negative Normal NEGATIVE/ TRACE [facility] Comment on above: Performed By: #### C VDTBH #### [facility] [address] [place] [address] Dr. Grace Abdul UR MICRO IND INDICATED Normal [facility] Comment on above: Performed By: #### C VDTBH #### [facility] [address] [place] [address] Dr. Grace Abdul Urobilinogen Qn (U) 0.2 {Ashley'U}/dL Normal 0.2 - 1. 0 [facility] Comment on above: Performed By: #### C VDTBH #### [facility] [address] [place] [address] Dr. Grace Abdul MAGNESIUMon 11-16-2021 Magnesium [Mass/Vol] 1.8 mg/dL Normal 1.8-2.4 [facility] Comment on above: Performed By: #### C VDTBH #### [facility] [address] [place] [address] Dr. Grace Abdul PROF CHEM 8 (BAS METB)on Anion gap [Moles/Vol] 12.7 mmol/L Normal [facility] Comment on above: Performed By: #### B MP #### [facility] [address] [place] [address] Dr. Grace Abdul Calcium [Mass/Vol] 8.3 mg/dL Critically low 8.5-10.1 [facility] Comment on above: Performed By: #### B MP #### [facility] [address] [address] [address] Grace Abdul CO2 [Moles/Vol] 24.4 mmol/L Normal 21.0-32.0 [facility] Comment on above: Performed By: #### B MP #### [facility] [address] [address] [address] Grace Abdul Creatinine [Mass/Vol] 1.16 mg/dL Critically high 0.55-1.02 [facility] Comment on above: Performed By: #### B MP #### [facility] [address] [address] [address] Grace Abdul EGFR-AF TRISTANIAN 54 mL/min/1.73m2 Critically low >=60 [facility] Comment on above: Performed By: #### B MP #### [facility] [address] [address] [address] Grace Abdul EGFR-NON AF TRISTANIAN 45 mL/min/1.73m2 Critically low >=60 [facility] Comment on above: Performed By: #### B MP #### [facility] [address] [address] [address] Grace Abdul Glucose [Mass/Vol] 116 mg/dL Critically high 74-106 [facility] Comment on above: Performed By: #### B MP #### [facility] [address] [address] [address] Grace Abdul Urea nitrogen [Mass/Vol] 20.0 mg/dL Critically high 7.0-18.0 [facility] Comment on above: Performed By: #### B MP #### [facility] [address] [address] [address] Grace Abdul Urea nitrogen/Creatinine [Mass ratio] 17.2 mg/mg Normal [facility] Comment on above: Performed By: #### B MP #### [facility] [address] [address] [address] Grace Abdul Anion gap [Moles/Vol] 10.0 mmol/L Normal [facility] Comment on above: Performed By: #### B MP #### [facility] [address] [address] [address] Grace Abdul Calcium [Mass/Vol] 8.8 mg/dL Normal 8.5-10.1 [facility] Comment on above: Performed By: #### B MP #### [facility] [address] [address] [address] Grace Abdul Chloride [Moles/Vol] 96 mmol/L Critically low 98-107 [facility] Comment on above: Performed By: #### B MP #### [facility] [address] [address] [address] Grace Abdul CO2 [Moles/Vol] 26.1 mmol/L Normal 21.0-32.0 [facility] Comment on above: Performed By: #### B MP #### [facility] [address] [address] [address] Grace Abdul Creatinine [Mass/Vol] 1.11 mg/dL Critically high 0.55-1.02 [facility] Comment on above: Performed By: #### B MP #### [facility] [address] [address] [address] Grace Abdul EGFR-AF TRISTANIAN 57 mL/min/1.73m2 Critically low >=60 [facility] Comment on above: Performed By: #### B MP #### [facility] [address] [address] [address] Grace Abdul EGFR-NON AF TRISTANIAN 47 mL/min/1.73m2 Critically low >=60 [facility] Comment on above: Performed By: #### B MP #### [facility] [address] [address] [address] Grace Abdul Glucose [Mass/Vol] 94 mg/dL Normal 74-106 [facility] Comment on above: Performed By: #### B MP #### [facility] [address] [address] [address] Grace Abdul Potassium [Moles/Vol] 3.1 mmol/L Critically low 3.5-5.1 [facility] Comment on above: Performed By: #### B MP #### [facility] [address] [place] [address] Dr. Grace Abdul Performed By: #### C VDTBH #### [facility] [address] [place] [address] Dr. Grace Abdul Sodium [Moles/Vol] 129 mmol/L Critically low 136-145 Th [facility] Comment on above: Performed By: #### B MP #### [facility] [address] [place] [address] Dr. Grace Abdul Urea nitrogen [Mass/Vol] 16.0 mg/dL Normal 7.0-18.0 [facility] Comment on above: Performed By: #### B MP #### [facility] [address] [place] [address] Dr. Grace Abdul Urea nitrogen/Creatinine [Mass ratio] 14.4 mg/mg Normal [facility] Comment on above: Performed By: #### B MP #### [facility] [address] [place] [address] Dr. Grace Abdul Anion gap [Moles/Vol] 12.6 mmol/L Normal [facility] Comment on above: Performed By: #### C VDTBH #### [facility] [address] [place] [address] Dr. Grace Abdul Calcium [Mass/Vol] 8.6 mg/dL Normal 8.5-10.1 [facility] Comment on above: Performed By: #### C VDTBH #### [facility] [address] [place] [address] Dr. Grace Abdul Chloride [Moles/Vol] 95 mmol/L Critically low 98-107 [facility] Comment on above: Performed By: #### B MP #### [facility] [address] [place] [address] Dr. Grace Abdul Performed By: #### C VDTBH #### [facility] [address] [place] [address] Dr. Grace Abdul CO2 [Moles/Vol] 22.5 mmol/L Normal 21.0-32.0 [facility] Comment on above: Performed By: #### C VDTBH #### [facility] [address] [address] [address] Grace Abdul Creatinine [Mass/Vol] 0.95 mg/dL Normal 0.55-1.02 [facility] Comment on above: Performed By: #### C VDTBH #### [facility] [address] [address] [address] Grace Abdul EGFR-AF TRISTANIAN >60 Normal >=60 [facility] Comment on above: Performed By: #### C VDTBH #### [facility] [address] [address] [address] Grace Abdul EGFR-NON AF TRISTANIAN 56 mL/min/1.73m2 Critically low >=60 [facility] Comment on above: Performed By: #### C VDTBH #### [facility] [address] [address] [address] Grace Abdul Glucose [Mass/Vol] 92 mg/dL Normal 74-106 [facility] Comment on above: Performed By: #### C VDTBH #### [facility] [address] [address] [address] Grace Abdul Sodium [Moles/Vol] 127 mmol/L Critically low 136-145 Th [facility] Comment on above: Performed By: #### C VDTBH #### [facility] [address] [address] [address] Grace Abdul Urea nitrogen [Mass/Vol] 18.0 mg/dL Normal 7.0-18.0 [facility] Comment on above: Performed By: #### C VDTBH #### [facility] [address] [address] [address] Grace Abdul Urea nitrogen/Creatinine [Mass ratio] 18.9 mg/mg Normal [facility] Comment on above: Performed By: #### C VDTBH #### [facility] [address] [address] [address] Grace Abdul URINE MICROSCOPIC ONLYon BACTERIA TRACE Abnormal NONE SEEN [facility] Comment on above: Performed By: #### C VDTBH #### [facility] [address] [place] [address] Dr. Grace Abdul Bacteria identified Cx Nom (U) INDICATED Normal [facility] Comment on above: Performed By: #### C VDTBH #### [facility] [address] [place] [address] Dr. Grace Abdul CAST NONE SEEN Normal NONE SEEN [facility] Comment on above: Performed By: #### C VDTBH #### [facility] [address] [place] [address] Dr. Grace Abdul Crystals LM Nom (Urine sed) NONE SEEN Normal NONE SEEN [facility] Comment on above: Performed By: #### C VDTBH #### [facility] [address] [place] [address] Dr. Grace Abdul Epithelial cells LM Ql (Urine sed) FEW Abnormal NONE SEEN /RARE [facility] Comment on above: Performed By: #### C VDTBH #### [facility] [address] [place] [address] Dr. Grace Abdul MUCOUS NONE SEEN Normal NONE SEEN [facility] Comment on above: Performed By: #### C VDTBH #### [facility] [address] [place] [address] Dr. Grace Abdul RBC 2-5 Abnormal 0-2 [facility] Comment on above: Performed By: #### C VDTBH #### [facility] [address] [place] [address] Dr. Grace Abdul WBC 5-10 Abnormal NONE SEEN [facility] Comment on above: Performed By: #### C VDTBH #### [facility] [address] [place] [address] Dr. Grace Abdul AMYLASEon 11-15-2021 Amylase [Catalytic activity/Vol] 94 U/L Normal 25-115 [facility] Comment on above: Performed By: #### C VDTBH #### [facility] [address] [place] [address] Dr. Grace Abdul BNPon 11-15-2021 Natriuretic peptide B (Bld) [Mass/Vol] 357.0 pg/mL Normal <=1,800.0 [facility] Comment on above: Performed By: #### C VDTBH #### [facility] [address] [place] [address] Dr. Grace Abdul CARDIAC JOVITA ADMITon 022 CK [Catalytic activity/Vol] 66 U/L Normal 26-192 [facility] Comment on above: Performed By: #### C VDTBH #### [facility] [address] [place] [address] Dr. Grace Abdul CK.MB [Mass/Vol] 2.19 ng/mL Normal <=3.60 [facility] Comment on above: Performed By: #### C VDTBH #### [facility] [address] [place] [address] Dr. Grace Abdul HSTROP 9.5 pg/mL Normal 4.0-51.3 [facility] Comment on above: Result Comment: CUT- OFF POINTS HAVE BEEN ESTABLISHED BASED ON THE FOURTH UNIVERSAL DEFINITIONS OF MYOCARDIAL INFARCTION. THE UPPER REFERENCE LIMIT (URL) OF TROPONIN, DEFINED THE 99TH PERCENTILE OF cTnI DISTRIBUTION IN A REFERENCE POPULATION, HAS BEEN CONFIRMED THE DECISION THRESHOLD FOR CO DIAGNOSIS. Performed By: #### C VDTBH #### [facility] [address] [place] [address] Dr. Grace Abdul JOHNNA 73 ng/mL Normal 9-82 [facility] Comment on above: Performed By: #### C VDTBH #### [facility] [address] [place] [address] Dr. Grace Abdul CBC AUTO DIFFon 11-15-2021 BASO # 0.0 103/ul Normal 0.0-0.1 [facility] Comment on above: Performed By: #### B MP #### [facility] [address] [place] [address] Dr. Grace Abdul Basophils/100 WBC (Bld) 0.1 % Critically low 0.2-2.0 [facility] Comment on above: Performed By: #### B MP #### [facility] [address] [place] [address] Dr. Grace Abdul EO # 0.0 103/ul Normal 0.0-0.7 [facility] Comment on above: Performed By: #### B MP #### [facility] [address] [place] [address] Dr. Grace Abdul Eosinophils/100 WBC (Bld) 0.1 % Critically low 0.9-7.0 [facility] Comment on above: Performed By: #### B MP #### [facility] [address] [place] [address] Dr. Grace Abdul Erythrocyte distribution width (RBC) [Ratio] 11.9 % Normal 11.0-15.0 [facility] Comment on above: Performed By: #### B MP #### [facility] [address] [place] [address] Dr. Grace Abdul Hematocrit (Bld) [Volume fraction] 36.6 % Normal 36.0-48.0 [facility] Comment on above: Performed By: #### B MP #### [facility] [address] [place] [address] Dr. Grace Abdul Hemoglobin (Bld) [Mass/Vol] 13.2 g/dL Normal 12.0-16.0 [facility] Comment on above: Performed By: #### B MP #### [facility] [address] [place] [address] Dr. Grace Abdul IG # 0.05 10e3/ul Critically high 0.00-0.03 [facility] Comment on above: Performed By: #### B MP #### [facility] [address] [place] [address] Dr. Grace Abdul IG % 0.7 % Critically high 0.0-0.5 [facility] Comment on above: Performed By: #### B MP #### [facility] [address] [place] [address] Dr. Grace Abdul LYMPH # 0.7 103/ul Critically low 1.2-3.8 [facility] Comment on above: Performed By: #### B MP #### [facility] [address] [place] [address] Dr. Grace Abdul Lymphocytes/100 WBC (Bld) 9.8 % Critically low 20.5-60.0 [facility] Comment on above: Performed By: #### B MP #### [facility] [address] [place] [address] Dr. Grace Abdul MANUAL DIFF REQ NO Normal [facility] Comment on above: Performed By: #### B MP #### [facility] [address] [place] [address] Dr. Grace Abdul MCH (RBC) [Entitic mass] 31.5 pg Normal 26.7-34.0 [facility] Comment on above: Performed By: #### B MP #### [facility] [address] [place] [address] Dr. Grace Abdul MCHC (RBC) [Mass/Vol] 36.1 g/dL Critically high 29.9-35.2 [facility] Comment on above: Performed By: #### B MP #### [facility] [address] [place] [address] Dr. Grace Abdul MCV (RBC) [Entitic vol] 87.4 fL Normal 81.0-99.0 [facility] Comment on above: Performed By: #### B MP #### [facility] [address] [place] [address] Dr. Grace Abdul MONO # 0.9 103/ul Critically high 0.3-0.8 [facility] Comment on above: Performed By: #### B MP #### [facility] [address] [place] [address] Dr. Grace Abdul Monocytes/100 WBC (Bld) 12.4 % Critically high 1.7-12.0 [facility] Comment on above: Performed By: #### B MP #### [facility] [address] [place] [address] Dr. Grace Abdul NEUT # 5.8 103/ul Normal 1.4-6.5 [facility] Comment on above: Performed By: #### B MP #### [facility] [address] [place] [address] Dr. Grace Abdul Neutrophils/100 WBC (Bld) 76.9 % Critically high 43.0-75.0 [facility] Comment on above: Performed By: #### B MP #### [facility] [address] [place] [address] Dr. Grace Abdul Platelet mean volume (Bld) [Entitic vol] 9.0 fL Critically low 9.5-13.5 [facility] Comment on above: Performed By: #### B MP #### [facility] [address] [place] [address] Dr. Grace Abdul PLT 361 103/ul Normal 150-450 [facility] Comment on above: Performed By: #### B MP #### [facility] [address] [address] [address] Grace Abdul RBC 4.19 106/ul Critically low 4.20-5.40 [facility] Comment on above: Performed By: #### B MP #### [facility] [address] [place] [address] Dr. Grace Abdul WBC 7.6 103/ul Normal 4.0-11.0 [facility] Comment on above: Performed By: #### B MP #### [facility] [address] [place] [address] Dr. Grace Abdul Covid-19 PCR ([facility])on 10-23 SARS-CoV-2 (COVID-19) RNA LUISITO+probe Ql (Unsp spec) Not detected Normal NOT DETECTED [facility] Comment on above: Result Comment: When [...] for this test is supported by the [employer]er of [employer] and Human Service's declaration that [...] used). Performed By: #### C VDTBH #### [facility] [address] [place] [address] Dr. Grace Abdul LIPASEon 11-15-2021 Lipase [Catalytic activity/Vol] 178.0 U/L Normal 73.0-393.0 [facility] Comment on above: Performed By: #### C VDTBH #### [facility] [address] [place] [address] Dr. Grace Abdul PROF 14(COMP METB)on 022 Albumin [Mass/Vol] 4.1 g/dL Normal 3.4-5.0 [facility] Comment on above: Performed By: #### C VDTBH #### [facility] [address] [place] [address] Dr. Grace Abdul Albumin/Globulin [Mass ratio] 1.2 {ratio} Normal [facility] Comment on above: Performed By: #### C VDTBH #### [facility] [address] [place] [address] Dr. Grace Abdul ALP [Catalytic activity/Vol] 63 U/L Normal 46-116 [facility] Comment on above: Performed By: #### C VDTBH #### [facility] [address] [place] [address] Dr. Grace Abdul ALT [Catalytic activity/Vol] 29 U/L Normal 14-59 [facility] Comment on above: Performed By: #### C VDTBH #### [facility] [address] [place] [address] Dr. Grace Abdul Anion gap [Moles/Vol] 14.8 mmol/L Normal [facility] Comment on above: Performed By: #### C VDTBH #### [facility] [address] [place] [address] Dr. Grace Abdul AST [Catalytic activity/Vol] 25 U/L Normal 15-37 [facility] Comment on above: Performed By: #### C VDTBH #### [facility] [address] [address] [address] Grace Abdul Bilirubin [Mass/Vol] 0.6 mg/dL Normal 0.2-1.0 [facility] Comment on above: Performed By: #### C VDTBH #### [facility] [address] [address] [address] Grace Abdul Calcium [Mass/Vol] 9.4 mg/dL Normal 8.5-10.1 [facility] Comment on above: Performed By: #### C VDTBH #### [facility] [address] [address] [address] Grace Abdul Chloride [Moles/Vol] 83 mmol/L Critically low 98-107 [facility] Comment on above: Performed By: #### C VDTBH #### [facility] [address] [place] [address] Dr. Grace Abdul CO2 [Moles/Vol] 24.4 mmol/L Normal 21.0-32.0 [facility] Comment on above: Performed By: #### C VDTBH #### [facility] [address] [address] [address] Grace Abdul Creatinine [Mass/Vol] 1.15 mg/dL Critically high 0.55-1.02 [facility] Comment on above: Performed By: #### C VDTBH #### [facility] [address] [address] [address] Grace Abdul EGFR-AF TRISTANIAN 55 mL/min/1.73m2 Critically low >=60 [facility] Comment on above: Performed By: #### C VDTBH #### [facility] [address] [address] [address] Grace Abdul EGFR-NON AF TRISTANIAN 45 mL/min/1.73m2 Critically low >=60 [facility] Comment on above: Performed By: #### C VDTBH #### [facility] [address] [address] [address] Grace Abdul Globulin (S) [Mass/Vol] 3.4 g/dL Normal [facility] Comment on above: Performed By: #### C VDTBH #### [facility] [address] [place] [address] Dr. Grace Abdul Glucose [Mass/Vol] 147 mg/dL Critically high 74-106 [facility] Comment on above: Performed By: #### C VDTBH #### [facility] [address] [place] [address] Dr. Grace Abdul Potassium [Moles/Vol] 3.2 mmol/L Critically low 3.5-5.1 [facility] Comment on above: Performed By: #### C VDTBH #### [facility] [address] [place] [address] Dr. Grace Abdul Protein [Mass/Vol] 7.5 g/dL Normal 6.4-8.2 [facility] Comment on above: Performed By: #### C VDTBH #### [facility] [address] [place] [address] Dr. Grace Abdul Urea nitrogen/Creatinine [Mass ratio] 21.7 mg/mg Normal [facility] Comment on above: Performed By: #### C VDTBH #### [facility] [address] [place] [address] Dr. Grace Abdul PROF CHEM 8 (BAS METB)on Anion gap [Moles/Vol] 13.6 mmol/L Normal [facility] Comment on above: Performed By: #### C VDTBH #### [facility] [address] [place] [address] Dr. Grace Abdul Calcium [Mass/Vol] 8.8 mg/dL Normal 8.5-10.1 [facility] Comment on above: Performed By: #### C VDTBH #### [facility] [address] [place] [address] Dr. Grace Abdul Chloride [Moles/Vol] 88 mmol/L Critically low 98-107 [facility] Comment on above: Performed By: #### C VDTBH #### [facility] [address] [place] [address] Dr. Grace Abdul CO2 [Moles/Vol] 21.8 mmol/L Normal 21.0-32.0 [facility] Comment on above: Performed By: #### C VDTBH #### [facility] [address] [place] [address] Dr. Grace Abdul Creatinine [Mass/Vol] 1.11 mg/dL Critically high 0.55-1.02 [facility] Comment on above: Performed By: #### C VDTBH #### [facility] [address] [place] [address] Dr. Grace Abdul EGFR-AF TRISTANIAN 57 mL/min/1.73m2 Critically low >=60 [facility] Comment on above: Performed By: #### C VDTBH #### [facility] [address] [place] [address] Dr. Grace Abdul EGFR-NON AF TRISTANIAN 47 mL/min/1.73m2 Critically low >=60 [facility] Comment on above: Performed By: #### C VDTBH #### [facility] [address] [place] [address] Dr. Grace Abdul Glucose [Mass/Vol] 132 mg/dL Critically high 74-106 T [facility] Comment on above: Performed By: #### C VDTBH #### [facility] [address] [place] [address] Dr. Grace Abdul Potassium [Moles/Vol] 3.4 mmol/L Critically low 3.5-5.1 [facility] Comment on above: Performed By: #### C VDTBH #### [facility] [address] [place] [address] Dr. Grace Abdul Sodium [Moles/Vol] 120 mmol/L Critically low 136-145 Th [facility] Comment on above: Result Comment: Test Repeated. Critical Value Verified Performed By: #### C VDTBH #### [facility] [address] [place] [address] Dr. Grace Abdul Urea nitrogen [Mass/Vol] 25.0 mg/dL Critically high 7.0-18.0 [facility] Comment on above: Performed By: #### C VDTBH #### [facility] [address] [address] [address] Grace Abdul Urea nitrogen/Creatinine [Mass ratio] 22.5 mg/mg Normal [facility] Comment on above: Performed By: #### C VDTBH #### [facility] [id number] Grace Abdul PROTIMEon 11-15-2021 INR Coag (PPP) [Relative time] 0.94 {INR} Normal [facility] Comment on above: Performed By: #### C VDTBH #### [facility] [address] [place] [address] Dr. Grace Abdul INR GUIDELINES SEE BELOW Normal [facility] Comment on above: Result Comment: DURAN RED INR: 2.0 - 3.0 CONDITIONS NOT LISTED BELOW 2.5 - 3.5 FOR PROSTHETIC HEART VALVE REPLACEMENT 2.5 - 3.5 RECURRENT THROMBOSIS Performed By: #### C VDTBH #### [facility] [address] [place] [address] Dr. Grace Abdul PT Coag (PPP) [Time] 10.2 s Normal 9.0-11.6 [facility] Comment on above: Performed By: #### C VDTBH #### [facility] [address] [place] [address] Dr. Grace Abdul XR ABD FLAT UP_PA [...] JARET LINARES Date: 2021-11-15 13:56 Normal [facility] BNPon 11-11-2021 Natriuretic peptide B (Bld) [Mass/Vol] 546.0 pg/mL Normal <=1,800.0 [facility] Comment on above: Performed By: #### C MP, TSH, HSTROPN, BNP ####[facility] [id number] [id number]. Grace Abdul CBC AUTO DIFFon 11-11-2021 BASO # 0.0 103/ul Normal 0.0-0.1 [facility] Comment on above: Performed By: #### C BC #### [facility] [address] [address] [address] Grcae Abdul Basophils/100 WBC (Bld) 0.3 % Normal 0.2-2.0 [facility] Comment on above: Performed By: #### C BC #### [facility] [address] [place] [address] Dr. Grace Abdul EO # 0.0 103/ul Normal 0.0-0.7 [facility] Comment on above: Performed By: #### C BC #### [facility] [address] [place] [address] Dr. Grace Abdul Eosinophils/100 WBC (Bld) 0.5 % Critically low 0.9-7.0 [facility] Comment on above: Performed By: #### C BC #### [facility] [address] [place] [address] Dr. Grace Abdul Erythrocyte distribution width (RBC) [Ratio] 12.9 % Normal 11.0-15.0 [facility] Comment on above: Performed By: #### C BC #### [facility] [address] [place] [address] Dr. Grace Abdul Hematocrit (Bld) [Volume fraction] 36.1 % Normal 36.0-48.0 [facility] Comment on above: Performed By: #### C BC #### [facility] [address] [place] [address] Dr. Grace Abdul Hemoglobin (Bld) [Mass/Vol] 12.3 g/dL Normal 12.0-16.0 [facility] Comment on above: Performed By: #### C BC #### [facility] [address] [place] [address] Dr. Grace Abdul IG # 0.01 10e3/ul Normal 0.00-0.03 [facility] Comment on above: Performed By: #### C BC #### [facility] [address] [place] [address] Dr. Grace Abdul IG % 0.3 % Normal 0.0-0.5 [facility] Comment on above: Performed By: #### C BC #### [facility] [address] [place] [address] Dr. Grace Abdul LYMPH # 0.6 103/ul Critically low 1.2-3.8 [facility] Comment on above: Performed By: #### C BC #### [facility] [address] [place] [address] Dr. Grace Abdul Lymphocytes/100 WBC (Bld) 14.8 % Critically low 20.5-60.0 [facility] Comment on above: Performed By: #### C BC #### [facility] [address] [place] [address] Dr. Grace Abdul MANUAL DIFF REQ NO Normal [facility] Comment on above: Performed By: #### C BC #### [facility] [address] [place] [address] Dr. Grace Abdul MCH (RBC) [Entitic mass] 31.5 pg Normal 26.7-34.0 [facility] Comment on above: Performed By: #### C BC #### [facility] [address] [place] [address] Dr. Grace Abdul MCHC (RBC) [Mass/Vol] 34.1 g/dL Normal 29.9-35.2 [facility] Comment on above: Performed By: #### C BC #### [facility] [address] [place] [address] Dr. Grace Abdul MCV (RBC) [Entitic vol] 92.6 fL Normal 81.0-99.0 [facility] Comment on above: Performed By: #### C BC #### [facility] [address] [place] [address] Dr. Grace Abdul MONO # 0.5 103/ul Normal 0.3-0.8 [facility] Comment on above: Performed By: #### C BC #### [facility] [address] [place] [address] Dr. Grace Abdul Monocytes/100 WBC (Bld) 13.5 % Critically high 1.7-12.0 [facility] Comment on above: Performed By: #### C BC #### [facility] [address] [place] [address] Dr. Grace Abdul NEUT # 2.7 103/ul Normal 1.4-6.5 [facility] Comment on above: Performed By: #### C BC #### [facility] [address] [place] [address] Dr. Grace Abdul Neutrophils/100 WBC (Bld) 70.6 % Normal 43.0-75.0 [facility] Comment on above: Performed By: #### C BC #### [facility] [address] [place] [address] Dr. Grace Abdul Platelet mean volume (Bld) [Entitic vol] 9.2 fL Critically low 9.5-13.5 [facility] Comment on above: Performed By: #### C BC #### [facility] [address] [place] [address] Dr. Grace Abdul PLT 279 103/ul Normal 150-450 [facility] Comment on above: Performed By: #### C BC #### [facility] [address] [place] [address] Dr. Grace Abdul RBC 3.90 106/ul Critically low 4.20-5.40 [facility] Comment on above: Performed By: #### C BC #### [facility] [address] [place] [address] Dr. Grace Abdul WBC 3.9 103/ul Critically low 4.0-11.0 [facility] Comment on above: Performed By: #### C BC #### [facility] [address] [place] [address] Dr. Grace Abdul PROF 14(COMP METB)on 022 Albumin [Mass/Vol] 3.3 g/dL Critically low 3.4-5.0 [facility] Comment on above: Performed By: #### C MP, TSH, HSTROPN, BNP #### [facility] [address] [place] [address] Dr. Grace Abdul Albumin/Globulin [Mass ratio] 1.2 {ratio} Normal [facility] Comment on above: Performed By: #### C MP, TSH, HSTROPN, BNP #### [facility] [address] [place] [address] Dr. Grace Abdul ALP [Catalytic activity/Vol] 60 U/L Normal 46-116 [facility] Comment on above: Performed By: #### C MP, TSH, HSTROPN, BNP #### [facility] [address] [place] [address] Dr. Grace Abdul ALT [Catalytic activity/Vol] 26 U/L Normal 14-59 [facility] Comment on above: Performed By: #### C MP, TSH, HSTROPN, BNP #### [facility] [address] [place] [address] Dr. Grace Abdul Anion gap [Moles/Vol] 14.8 mmol/L Normal [facility] Comment on above: Performed By: #### C MP, TSH, HSTROPN, BNP #### [facility] [address] [place] [address] Dr. Grace Abdul AST [Catalytic activity/Vol] 20 U/L Normal 15-37 [facility] Comment on above: Performed By: #### C MP, TSH, HSTROPN, BNP #### [facility] [address] [place] [address] Dr. Grace Abdul Bilirubin [Mass/Vol] 0.3 mg/dL Normal 0.2-1.0 [facility] Comment on above: Performed By: #### C MP, TSH, HSTROPN, BNP #### [facility] [address] [place] [address] Dr. Grace Abdul Calcium [Mass/Vol] 8.2 mg/dL Critically low 8.5-10.1 [facility] Comment on above: Performed By: #### C MP, TSH, HSTROPN, BNP #### [facility] [address] [place] [address] Dr. Grace Abdul Chloride [Moles/Vol] 100 mmol/L Normal 98-107 [facility] Comment on above: Performed By: #### C MP, TSH, HSTROPN, BNP #### [facility] [address] [place] [address] Dr. Grace Abdul CO2 [Moles/Vol] 23.8 mmol/L Normal 21.0-32.0 [facility] Comment on above: Performed By: #### C MP, TSH, HSTROPN, BNP #### [facility] [address] [place] [address] Dr. Grace Abdul Creatinine [Mass/Vol] 1.27 mg/dL Critically high 0.55-1.02 [facility] Comment on above: Performed By: #### C MP, TSH, HSTROPN, BNP #### [facility] [address] [place] [address] Dr. Grace Abdul EGFR-AF TRISTANIAN 49 mL/min/1.73m2 Critically low >=60 [facility] Comment on above: Performed By: #### C MP, TSH, HSTROPN, BNP #### [facility] [address] [place] [address] Dr. Grace Abdul EGFR-NON AF TRISTANIAN 40 mL/min/1.73m2 Critically low >=60 [facility] Comment on above: Performed By: #### C MP, TSH, HSTROPN, BNP #### [facility] [address] [place] [address] Dr. Grace Abdul Globulin (S) [Mass/Vol] 2.7 g/dL Normal [facility] Comment on above: Performed By: #### C MP, TSH, HSTROPN, BNP #### [facility] [address] [place] [address] Dr. Grace Abdul Glucose [Mass/Vol] 116 mg/dL Critically high 74-106 [facility] Comment on above: Performed By: #### C MP, TSH, HSTROPN, BNP #### [facility] [address] [address] [address] Grace Abdul Potassium [Moles/Vol] 3.6 mmol/L Normal 3.5-5.1 [facility] Comment on above: Performed By: #### C MP, TSH, HSTROPN, BNP #### [facility] [address] [place] [address] Dr. Grace Abdul Protein [Mass/Vol] 6.0 g/dL Critically low 6.4-8.2 [facility] Comment on above: Performed By: #### C MP, TSH, HSTROPN, BNP #### [facility] [address] [place] [address] Dr. Grace Abdul Sodium [Moles/Vol] 135 mmol/L Critically low 136-145 Th [facility] Comment on above: Performed By: #### C MP, TSH, HSTROPN, BNP #### [facility] [address] [place] [address] Dr. Grace Abdul Urea nitrogen [Mass/Vol] 25.0 mg/dL Critically high 7.0-18.0 [facility] Comment on above: Performed By: #### C MP, TSH, HSTROPN, BNP #### [facility] [address] [place] [address] Dr. Grace Abdul Urea nitrogen/Creatinine [Mass ratio] 19.7 mg/mg Normal [facility] Comment on above: Performed By: #### C MP, TSH, HSTROPN, BNP #### [facility] [address] [place] [address] Dr. Grace Abdul PROTIMEon 11-11-2021 INR Coag (PPP) [Relative time] 0.95 {INR} Normal [facility] Comment on above: Performed By: #### B MP #### [facility] [address] [place] [address] Dr. Grace Abdul INR GUIDELINES SEE BELOW Normal [facility] Comment on above: Result Comment: DURAN RED INR: 2.0 - 3.0 CONDITIONS NOT LISTED BELOW 2.5 - 3.5 FOR PROSTHETIC HEART VALVE REPLACEMENT 2.5 - 3.5 RECURRENT THROMBOSIS Performed By: #### B MP #### [facility] [address] [address] [address] Grace Abdul PT Coag (PPP) [Time] 10.3 s Normal 9.0-11.6 [facility] Comment on above: Performed By: #### B MP #### [facility] [id number] Grace Abdul PTTon 11-11-2021 aPTT Coag (Bld) [Time] 21.3 s Critically low 22.3-36.2 [facility] Comment on above: Performed By: #### B MP #### [facility] [address] [address] [address] Grace Adbul TROPONIN, HIGH SENSITIVITYon 11-11-2021 HSTROP 6.5 pg/mL Normal 4.0-51.3 [facility] Comment on above: Result Comment: CUT- OFF POINTS HAVE BEEN ESTABLISHED BASED ON THE FOURTH UNIVERSAL DEFINITIONS OF MYOCARDIAL INFARCTION. THE UPPER REFERENCE LIMIT (URL) OF TROPONIN, DEFINED THE 99TH PERCENTILE OF cTnI DISTRIBUTION IN A REFERENCE POPULATION, HAS BEEN CONFIRMED THE DECISION THRESHOLD FOR CO DIAGNOSIS. Performed By: #### C MP, TSH, HSTROPN, BNP #### [facility] [id number] Grace Abdul TSHon 11-11-2021 TSH 2.140 uIU/mL Normal 0.358-3.740 [facility] Comment on above: Performed By: #### C MP, TSH, HSTROPN, BNP ####[facility] [address] [place], [place] [id number]. Grace Abdul XR CHEST 1 Von 11-11-2021 [...] KRANTHI CONNORS Date: 2021-11-11 13:34 Normal [facility] CARDIAC JOVITA ADMITon 022 CK [Catalytic activity/Vol] 89 U/L Normal 26-192 [facility] Comment on above: Performed By: #### C VDTBH #### [facility] [address] [place] [address] Dr. Grace Abdul CK.MB [Mass/Vol] 1.92 ng/mL Normal <=3.60 [facility] Comment on above: Performed By: #### C VDTBH #### [facility] [address] [place] [address] Dr. Grace Abdul HSTROP 5.7 pg/mL Normal 4.0-51.3 [facility] Comment on above: Result Comment: CUT- OFF POINTS HAVE BEEN ESTABLISHED BASED ON THE FOURTH UNIVERSAL DEFINITIONS OF MYOCARDIAL INFARCTION. THE UPPER REFERENCE LIMIT (URL) OF TROPONIN, DEFINED THE 99TH PERCENTILE OF cTnI DISTRIBUTION IN A REFERENCE POPULATION, HAS BEEN CONFIRMED THE DECISION THRESHOLD FOR CO DIAGNOSIS. Performed By: #### C VDTBH #### [facility] [address] [place] [address] Dr. Grace Abdul JOHNNA 86 ng/mL Critically high 9-82 [facility] Comment on above: Performed By: #### C VDTBH #### [facility] [address] [place] [address] Dr. Grace Abdul CBC AUTO DIFFon 09-13-2021 BASO # 0.0 103/ul Normal 0.0-0.1 [facility] Comment on above: Performed By: #### C VDTBH #### [facility] [address] [place] [address] Dr. Grace Abdul Basophils/100 WBC (Bld) 0.5 % Normal 0.2-2.0 [facility] Comment on above: Performed By: #### C VDTBH #### [facility] [address] [place] [address] Dr. Grace Abdul EO # 0.0 103/ul Normal 0.0-0.7 [facility] Comment on above: Performed By: #### C VDTBH #### [facility] [address] [place] [address] Dr. Grace Abdul Eosinophils/100 WBC (Bld) 0.7 % Critically low 0.9-7.0 [facility] Comment on above: Performed By: #### C VDTBH #### [facility] [address] [place] [address] Dr. Grace Abdul Erythrocyte distribution width (RBC) [Ratio] 13.2 % Normal 11.0-15.0 [facility] Comment on above: Performed By: #### C VDTBH #### [facility] [address] [place] [address] Dr. Grace Abdul Hematocrit (Bld) [Volume fraction] 34.8 % Critically low 36.0-48.0 [facility] Comment on above: Performed By: #### C VDTBH #### [facility] [address] [place] [address] Dr. Grace Abdul Hemoglobin (Bld) [Mass/Vol] 11.9 g/dL Critically low 12.0-16.0 [facility] Comment on above: Performed By: #### C VDTBH #### [facility] [address] [place] [address] Dr. Grace Abdul IG # 0.01 10e3/ul Normal 0.00-0.03 [facility] Comment on above: Performed By: #### C VDTBH #### [facility] [address] [place] [address] Dr. Grace Abdul IG % 0.2 % Normal 0.0-0.5 [facility] Comment on above: Performed By: #### C VDTBH #### [facility] [address] [place] [address] Dr. Grace Abdul LYMPH # 0.6 103/ul Critically low 1.2-3.8 [facility] Comment on above: Performed By: #### C VDTBH #### [facility] [address] [place] [address] Dr. Grace Abdul Lymphocytes/100 WBC (Bld) 14.2 % Critically low 20.5-60.0 [facility] Comment on above: Performed By: #### C VDTBH #### [facility] [address] [place] [address] Dr. Grace Abdul MANUAL DIFF REQ NO Normal [facility] Comment on above: Performed By: #### C VDTBH #### [facility] [address] [place] [address] Dr. Grace Abdul MCH (RBC) [Entitic mass] 31.5 pg Normal 26.7-34.0 [facility] Comment on above: Performed By: #### C VDTBH #### [facility] [address] [place] [address] Dr. Grace Abdul MCHC (RBC) [Mass/Vol] 34.2 g/dL Normal 29.9-35.2 [facility] Comment on above: Performed By: #### C VDTBH #### [facility] [address] [place] [address] Dr. Grace Abdul MCV (RBC) [Entitic vol] 92.1 fL Normal 81.0-99.0 [facility] Comment on above: Performed By: #### C VDTBH #### [facility] [address] [place] [address] Dr. Grace Abdul MONO # 0.7 103/ul Normal 0.3-0.8 [facility] Comment on above: Performed By: #### C VDTBH #### [facility] [address] [place] [address] Dr. Grace Abdul Monocytes/100 WBC (Bld) 15.6 % Critically high 1.7-12.0 [facility] Comment on above: Performed By: #### C VDTBH #### [facility] [address] [place] [address] Dr. Grace Abdul NEUT # 3.0 103/ul Normal 1.4-6.5 [facility] Comment on above: Performed By: #### C VDTBH #### [facility] [address] [address] [address] Grace Abdul Neutrophils/100 WBC (Bld) 68.8 % Normal 43.0-75.0 [facility] Comment on above: Performed By: #### C VDTBH #### [facility] [address] [address] [address] Grace Abdul Platelet mean volume (Bld) [Entitic vol] 9.5 fL Normal 9.5-13.5 [facility] Comment on above: Performed By: #### C VDTBH #### [facility] [address] [address] [address] Grace Abdul PLT 303 103/ul Normal 150-450 [facility] Comment on above: Performed By: #### C VDTBH #### [facility] [address] [place] [address] Dr. Grace Abdul RBC 3.78 106/ul Critically low 4.20-5.40 [facility] Comment on above: Performed By: #### C VDTBH #### [facility] [address] [place] [address] Dr. Grace Abdul WBC 4.4 103/ul Normal 4.0-11.0 [facility] Comment on above: Performed By: #### C VDTBH #### [facility] [address] [place] [address] HEAD WO CONon [...] KRANTHI CONNORS Date: 2021-09-13 13:24 Normal [facility] Covid-19 PCR (CVDTB)on 08-22 SARS-CoV-2 (COVID-19) RNA LUISITO+probe Ql (Unsp spec) Not detected Normal NOT DETECTED [facility] Comment on above: Result Comment: When [...] for this test is supported by the [employer]er of Health and Human Service's declaration that [...] used). Performed By: #### C VDTBH #### [facility] [address] [place] [address] Dr. Grace Abdul ER URINE PROFILEon 2 Bilirubin Ql (U) Negative Normal NEGATIVE [facility] Comment on above: Performed By: #### B MP #### [facility] [address] [place] [address] Dr. Grace Abdul Clarity (U) CLEAR Normal CLEAR [facility] Comment on above: Performed By: #### B MP #### [facility] [address] [place] [address] Dr. Grace Abdul Color (U) LT. YELLOW Normal YELLOW [facility] Comment on above: Performed By: #### B MP #### [facility] [address] [place] [address] Dr. Grace Abdul ERUAHD A micrscopic examination will be performed if indicated. Normal [facility] Comment on above: Performed By: #### B MP #### [facility] [address] [address] [address] Grace Abdul Glucose Ql (U) Negative Normal NEGATIVE [facility] Comment on above: Performed By: #### B MP #### [facility] [address] [address] [address] Grace Abdul Hemoglobin Ql (U) Negative Normal NEGATIVE [facility] Comment on above: Performed By: #### B MP #### [facility] [address] [address] [address] Grace Abdul Ketones Ql (U) TRACE Abnormal NEGATIVE [facility] Comment on above: Performed By: #### B MP #### [facility] [address] [place] [address] Dr. Grace Abdul LEUKOCYTES TRACE Abnormal NEGATIVE [facility] Comment on above: Performed By: #### B MP #### [facility] [address] [place] [address] Dr. Grace Abdul Nitrite Ql (U) Negative Normal NEGATIVE [facility] Comment on above: Performed By: #### B MP #### [facility] [address] [place] [address] Dr. Grace Abdul pH (U) 8.0 [pH] Normal 5-9 [facility] Comment on above: Performed By: #### B MP #### [facility] [address] [place] [address] Dr. Grace Abdul SPEC GRAVITY 1.015 Normal 1.005-<=1.025 [facility] Comment on above: Performed By: #### B MP #### [facility] [address] [address] [address] Grace Abdul UA PROTEIN Negative Normal NEGATIVE/ TRACE [facility] Comment on above: Performed By: #### B MP #### [facility] [address] [place] [address] Dr. Grace Abdul UR MICRO IND INDICATED Normal [facility] Comment on above: Performed By: #### B MP #### [facility] [address] [place] [address] Dr. Grace Abdul Urobilinogen Qn (U) 0.2 {Ashley'U}/dL Normal 0.2 - 1. 0 [facility] Comment on above: Performed By: #### B #### [facility] [address] [place] [address] Dr. Grace Abdul PROF 14(COMP METB)on 022 Albumin [Mass/Vol] 3.8 g/dL Normal 3.4-5.0 [facility] Comment on above: Performed By: #### C VDTBH #### [facility] [address] [place] [address] Dr. Grace Abdul Albumin/Globulin [Mass ratio] 1.4 {ratio} Normal [facility] Comment on above: Performed By: #### C VDTBH #### [facility] [address] [place] [address] Dr. Grace Abdul ALP [Catalytic activity/Vol] 53 U/L Normal 46-116 [facility] Comment on above: Performed By: #### C VDTBH #### [facility] [address] [place] [address] Dr. Grace Abdul ALT [Catalytic activity/Vol] 20 U/L Normal 14-59 [facility] Comment on above: Performed By: #### C VDTBH #### [facility] [address] [place] [address] Dr. Grace Abdul Anion gap [Moles/Vol] 12.0 mmol/L Normal [facility] Comment on above: Performed By: #### C VDTBH #### [facility] [address] [place] [address] Dr. Grace Abdul AST [Catalytic activity/Vol] 18 U/L Normal 15-37 [facility] Comment on above: Performed By: #### C VDTBH #### [facility] [address] [place] [address] Dr. Grace Abdul Bilirubin [Mass/Vol] 0.4 mg/dL Normal 0.2-1.0 [facility] Comment on above: Performed By: #### C VDTBH #### [facility] [address] [address] [address] Grace Abdul Calcium [Mass/Vol] 9.5 mg/dL Normal 8.5-10.1 [facility] Comment on above: Performed By: #### C VDTBH #### [facility] [address] [address] [address] Grace Abdul Chloride [Moles/Vol] 99 mmol/L Normal 98-107 [facility] Comment on above: Performed By: #### C VDTBH #### [facility] [address] [address] [address] Grace Abdul CO2 [Moles/Vol] 28.1 mmol/L Normal 21.0-32.0 [facility] Comment on above: Performed By: #### C VDTBH #### [facility] [address] [place] [address] Dr. Grace Abdul Creatinine [Mass/Vol] 1.25 mg/dL Critically high 0.55-1.02 [facility] Comment on above: Performed By: #### C VDTBH #### [facility] [address] [address] [address] Grace Abdul EGFR-AF TRISTANIAN 50 mL/min/1.73m2 Critically low >=60 [facility] Comment on above: Performed By: #### C VDTBH #### [facility] [address] [address] [address] Grace Abdul EGFR-NON AF TRISTANIAN 41 mL/min/1.73m2 Critically low >=60 [facility] Comment on above: Performed By: #### C VDTBH #### [facility] [address] [address] [address] Grace Abdul Globulin (S) [Mass/Vol] 2.7 g/dL Normal [facility] Comment on above: Performed By: #### C VDTBH #### [facility] [address] [place] [address] Dr[address] Grace Abdul Glucose [Mass/Vol] 131 mg/dL Critically high 74-106 T [facility] Comment on above: Performed By: #### C VDTBH #### [facility] [address] [place] [address] Dr. Grace Abdul Potassium [Moles/Vol] 4.1 mmol/L Normal 3.5-5.1 [facility] Comment on above: Performed By: #### C VDTBH #### [facility] [address] [place] [address] Dr. Grace Abdul Protein [Mass/Vol] 6.5 g/dL Normal 6.4-8.2 [facility] Comment on above: Performed By: #### C VDTBH #### [facility] [address] [place] [address] Dr. Grace Abdul Sodium [Moles/Vol] 135 mmol/L Critically low 136-145 Th [facility] Comment on above: Performed By: #### C VDTBH #### [facility] [address] [place] [address] Dr. Grace Abdul Urea nitrogen [Mass/Vol] 33.0 mg/dL Critically high 7.0-18.0 [facility] Comment on above: Performed By: #### C VDTBH #### [facility] [address] [place] [address] Dr. Grace Abdul Urea nitrogen/Creatinine [Mass ratio] 26.4 mg/mg Normal [facility] Comment on above: Performed By: #### C VDTBH #### [facility] [address] [place] [address] Dr. Grace Abdul URINE MICROSCOPIC ONLYon BACTERIA NONE SEEN Normal NONE SEEN [facility] Comment on above: Performed By: #### C BC #### [facility] [address] [place] [address] Dr. Grace Abdul Bacteria identified Cx Nom (U) NOT INDICATED Normal [facility] Comment on above: Performed By: #### C BC #### [facility] [address] [place] [address] Dr. Grace Abdul CAST NONE SEEN Normal NONE SEEN [facility] Comment on above: Performed By: #### C BC #### [facility] [address] [address] [address] Grace Abdul Crystals LM Nom (Urine sed) NONE SEEN Normal NONE SEEN [facility] Comment on above: Performed By: #### C BC #### [facility] [address] [place] [address] Dr. Grace Abdul Epithelial cells LM Ql (Urine sed) FEW Abnormal NONE SEEN /RARE [facility] Comment on above: Performed By: #### C BC #### [facility] [address] [place] [address] Dr. Grace Abdul MUCOUS NONE SEEN Normal NONE SEEN [facility] Comment on above: Performed By: #### C BC #### [facility] [address] [place] [address] Dr. Grace Abdul RBC 0-2 Normal 0-2 [facility] Comment on above: Performed By: #### C BC #### [facility] [address] [place] [address] Dr. Grace Abdul WBC 0-2 Abnormal NONE SEEN [facility] Comment on above: Performed By: #### C BC #### [facility] [address] [place] [address] Dr. Grace Abdul XR CHEST 1 Von [...] KRANTHI CONNORS Date: 2021-09-13 13:19 Normal [facility] CERV SP W/OBLS/FLEX/EXT 6 OR >on 12-12-2020 CERV SP W/OBLS/FLEX/EXT 6 OR > STUDY: CERV SP W/OBLS/FLEX/EXT 6 OR >; 12/12/2020 9:40 am INDICATION: NECK PAIN. COMPARISON: None. ACCESSION NUMBER(S): [id number] ORDERING CLINICIAN: Aiden Younger TECHNIQUE: AP, lateral, [...] findings. Dense left carotid artery calcifications. Normal [facility] Vital Signs Date Time Vital Sign Value Performing Clinician Aimee pollock 09-21-2022 12:51-0400 Diastolic blood pressure 60 mm[Hg] Carolyn Vanegas MD Work Phone: [facility] 09-21-2022 12:51-0400 Heart rate 67 /min Carolyn Vanegas MD Work Phone: [facility] 09-21-2022 12:51-0400 Systolic blood pressure 153 mm[Hg] Carolyn Vanegas MD Work Phone: [facility] 05-14-2022 14:24-0400 Diastolic blood pressure 87 mm[Hg] Marty Dozier DO Work Phone: [facility] 05-14-2022 14:24-0400 Heart rate 72 /min Marty Dozier DO Work Phone: [facility] 05-14-2022 14:24-0400 Systolic blood pressure 158 mm[Hg] Marty Dozier DO Work Phone: [facility] 05-14-2022 14:22-0400 Body height 152.4 cm Marty Dozier DO Work Phone: [facility] 05-14-2022 14:22-0400 Body weight 76.39 kg Marty Dozier DO Work Phone: [facility] 05-14-2022 14: SaO2% (BldA) [Mass fraction] 99 % Marty Dozier DO Work Phone: [facility] Encounters Encounter Date Encounter Type Care Provider Facility Start: 09-26-2023 End: 09-26-2023 ambulatory Lyn Quiñones MD Facility: [facility] Start: 09-12-2023 End: 09-12-2023 ambulatory Lyn Quiñones MD Facility: [facility] Start: 08-18-2023 End: 08-18-2023 ambulatory Galina Rogers Facility:[facility] Start: 08-08-2023 End: 08-08-2023 ambulatory COLETTE MATOS [...] Start: 09-21-2022 End: 09-21-2022 ambulatory GALINA ROGERS Facility:[facility] Start: 09-21-2022 End: 09-21-2022 Patient encounter procedure [...] Start: 05-14-2022 End: 05-14-2022 ambulatory MARTY DOZIER Facility:[facility] Start: 05-14-2022 End: 05-14-2022 Patient encounter procedure [...] 09-12-2017 End: 09-13-2017 Patient encounter DEFAULT PHYSICIAN Facility:[facility] Plan of Treatment Date Care Activity Detail Author Start: 10-22-2022 Influenza vaccination INFLUENZA (#1) [facility] Start: 04-11-2022 COVID-19 VACCINE (6 - Moderna series) COVID-19 VACCINE (6 - Moderna series) [facility] Start: 02-21-2022 ADVANCE DIRECTIVE DISCUSSION ADVANCE DIRECTIVE DISCUSSION [facility] Start: 02-21-2022 DEPRESSION ASSESSMENT DEPRESSION ASS ESSMENT [facility] Start: 11-12-2017 PNEUMOCOCCAL: 65+ (2 - PPSV23 if available, else PCV20) PNEUMOCOCCAL: 65+ (2 - PPSV23 if available, else PCV20) [facility] Start: 11-12-2017 PNEUMOCOCCAL: 65+ (2 - PPSV23 or PCV20) PNEUMOCOCCAL: 65+ (2 - PPSV23 or PCV20) [facility] Start: 07-22-2017 SHINGRIX VACCINE (2 of 3) MANLEY GRIX VACCINE (2 of 3) [facility] Start: 04-30-2004 BONE DENSITY BONE DENSITY [facility] Start: 04-30-1984 DIABETES SCREEN DIABETES SCREEN [facility] Start: 04-30-1958 Urine microalbumin profile DTAP,TDAP ,TD (1 - Tdap) [facility] Immunizations Immunization Date Immunization Notes Care Provider Fa cility 12-02-2021 Influenza, injectabl e, Madin Beacon Canine Kidney, preservative free, quadrivalent Marty Mendis DO Work Phone: [facility] 11-28-2020 influenza virus vacc ine, unspecified formulation Marty Mendis DO Work Phone: [facility] 11-29-2019 Seasonal trivalent influenza vaccine, adjuvanted, preservative free Marty Guillaumeis DO Work Phone: [facility] 05-27-2017 zoster vaccine, live Marty Dozier DO Work Phone: [facility] 11-12-2016 pneumococcal conjuga te vaccine, 13 valent Marty Mendis DO Work Phone: [facility] Payers Date Payer Category Payer Private Health Insurance [facility] AAR SUPPLEMENT [id number] 2022-Present [phone] [address] [place] [address] Indemnity [id number] 2004 Medicare [id number] 2004 Unknown 1959 Medicare [id number] 1959 Self-pay 1959 Unknown [id number] 1939 Unknown [id number] 2.16.840.1.728079.3.579.2 .593 1939 Unknown [id number] 2.16.840.1.971278.3.579.2 .593 1939 Unknown [id number] 2.16.840.1.153782.3.579.2 .593 1939 Unknown [id number] 2.16.840.1.852293.3.579.2 .593 1939 Unknown [id number] 2.16.840.1.551724.3.579.2 .593 1939 Unknown [id number] 2.16.840.1.439252.3.579.2 .593 1939 Unknown [id number] 2.16.840.1.312539.3.579.2 .593 1939 Unknown [id number] 2.16.840.1.770319.3.579.2 .593 1939 Unknown [id number] 2.16.840.1.007838.3.579.2 .593 1939 Unknown [id number] 2.16.840.1.566507.3.579.2 .593 1939 Unknown [id number] 2.16.840.1.246132.3.579.2 .593 1939 Unknown [id number] 2.16.840.1.742255.3.579.2 .593 1939 Unknown [id number] 2.16.840.1.903728.3.579.2 .593 1939 Unknown [id number] 2.16.840.1.412890.3.579.2 .593 1939 Unknown [id number] 2.16.840.1.750445.3.579.2 .593 1939 Unknown [id number] 2.16.840.1.674862.3.579.2 .593 1939 Unknown [id number] 2.16.840.1.211970.3.579.2 .593 1939 Unknown [id number] 2.16.840.1.453238.3.579.2 .593 1939 Unknown [id number] 2.16.840.1.423635.3.579.2 .593 1939 Unknown [id number] 2.16.840.1.925996.3.579.2 .593 1939 Unknown [id number] 2.16.840.1.530024.3.579.2 .593 1939 Unknown [id number] 2.16.840.1.782429.3.579.2 .593 1939 Unknown [id number] 2.16.840.1.446570.3.579.2 .593 1939 Unknown [id number] 2.16.840.1.619522.3.579.2 .593 1939 Unknown [id number] 2.16.840.1.183217.3.579.2 .593 1939 Unknown [id number] 2.16.840.1.052186.3.579.2 .1259 1939 Unknown [id number] 2.16.840.1.139478.3.579.2 .1259 1939 Unknown [id number] 2.16.840.1.156526.3.579.2 .196 1939 Unknown [id number] 2.16.840.1.839935.3.579.2 .196 1939 Unknown [id number] 2.16.840.1.985575.3.579.2 .196 1939 Unknown [id number] 2.16.840.1.270102.3.579.2 .196 1939 Unknown [id number] 2.16.840.1.954489.3.579.2 .196 1939 Unknown [id number] 2.16.840.1.673219.3.579.2 .196 1939 Unknown [id number] 2.16.840.1.777834.3.579.2 .196 1939 Unknown [id number] 2.16.840.1.856887.3.579.2 .196 Social History Date Type Detail Facility Start: 05-14-2022 Tobacco smoking stat us NHIS Never smoked tobacco [facility] Start: 05-14-2022 Tobacco use and exposure Smoke less tobacco non-user [facility] Start: 05-14-2022 End: 09-21-2022 Alcohol intake Lifetime non-drinker (finding) [facility] Start: 1940 Sex Assigned At Not on file [facility] Start: 05-09-2022 End: 09-21-2022 History of Social function [facility] shanika Start: 05-09-2022 End: 09-21-2022 Tobacco use panel [facility] Adult Depression Scr eening Assessment 2 [facility] Clinical Notes 09-30-2021 to 09-21-2022 Patient InstructionsCarolyn Vanegas MD - 09/21/2022 12:43 PM Naa Alves PA-C - 08/26/2022 11:45 AM EDTTmonika Bowman - 08/19/2022 4:06 PM EDT Note Date & Type Note Facility 09-21-2022 Note HNO ID: [id number] Author: Carolyn Vanegas MD Service: ? Author [...] Health Percentile 1 (more content not included)... [facility] 09-21-2022 Instructions Carolyn Vanegas MD - [...] at this time. documented in this encounter [facility] 09-21-2022 History of Present illness Narrative [...] 4 - Moderate documented in this encounter [facility] 08-26-2022 Note HNO ID: [id number] Author: Kassandra Alves PA-C Service: ? Author Type: Physician [employer] Type: Progress Notes Filed: 08/26/2022 11:52 AM Note Text: Per Triage: Alexa Delgado is a 82 year old female that requests evaluation of spine. Per review, they have symptoms of lower back pain. Numbness/tingling right leg. Difficulty walking. Weakness Request: 1st available Referring provider: Galina Rogers MD Patient out of state: no 2nd opinion: no Prior spine surgery: yes 2006 [facility] Address: [address] [place] [address] CMT: PT Injections Tylenol Hydrocodone Studies (Reports [...] reviewed during the appt Kassandra Alves PA-C [facility] 08-26-2022 History of Present illness Narrative Per Triage: Alexa Delgado is a 82 year old female that requests evaluation of spine. Per review, they have symptoms of lower back pain. Numbness/tingling right leg. Difficulty walking. Weakness Request: 1st available Referring provider: Galian Rogers MD Patient out of state: no 2nd opinion: no Prior spine surgery: yes 2006 [facility] Address: [address] [place] [address] CMT: PT Injections Tylenol Hydrocodone Studies (Reports [...] Health Provider or Pain Management Provider at [facility]? No If answer is YES please schedule [...] facility where the MRI/CT/myelogram was completed: [facility] Address: [address] [place] [address] MRI/CT/myelogram viewable in Epic: No If not, please provide [phone] to fax in imaging reports for review. [...] physical therapy was completed PT Injection [facility] Address: [address] [place] [address] Have you tried any other kinds of [...] where the surgery was completed: 2006 [facility] Address: [address] [place] [address] Additional Comments documented in this encounter [facility] 08-19-2022 Note HNO ID: [id number] Author: Micheal Bowman Service: ? Author Type: ? Type: Progress Notes Filed: 08/26/2022 11:52 AM Note Text: Patient name: Alexa Delgado Are you being referred by a [facility] Provider or Pain Management Provider at [facility]? No If answer is YES please schedule [...] facility where the MRI/CT/myelogram was completed: [facility] Address: [address] [place] [address] MRI/CT/myelogram viewable in Epic: No If not, please provide [phone] to fax in imaging reports for review. [...] and/or physical therapy was completed PT Injection [facility] Address: [address] [place] [address] Have you tried any other kinds of [...] of where the surgery was completed: 2006 [facility] Address: [address] [place] [address] Additional Comments [facility] 07-16-2022 Note PROCEDURE: XR HIP RT [...] authenticated by: HERMES MENDOZA Date: 2022-07-16 11:28 [facility] 05-14-2022 Note HNO ID: [id number] Author: Marty Dozier, DO Service: ? Author Type: Physician Type: Progress Notes Filed: 05/15/2022 10:02 PM Note Text: [facility] [place] [facility] [place] [facility] Spine Initial [...] Ratio: R>L low back Current Treatment: Medications Goodwin 5-325 mg BID - helps Diclofenac 75 [...] but still has pain -01/28/22 Noemi Sequeira BRIM RAISER: BL Lumbar erector spinae TPI (0.125% Marcaine, [...] ongoing as of 04/17/21 -03/08/21 Noemi Sequeira BRIM RAISER: Left rhomboid TPI (0.125% Marcaine, 40 mg Kenalog) -02/03/21 LESI - moderate relief for 4 days Prior spine surgery: -2006 L4-5 Discectomy Previously treated by: -[facility], previously Dr. Niko [...] today. She has an evaluation at the [facility] tomorrow at the Spine Center. RECOMMENDATIONS: We will see the patient back in the office after she undergoes evaluation there to discuss her treatment plan thereafter. We will see the patient back in the office in approximately four weeks' time or sooner if needed. PMH: Lumbar scoliosis Depression on Nergita (more content not included)... [facility] 05-14-2022 History of Present illness Narrative Images from the original note were not included. [facility] [place] [facility] [place] [facility] Spine Initial [...] Ratio: R>L low back Current Treatment: Medications Goodwin 5-325 mg BID - helps Diclofenac 75 [...] but still has pain -01/28/22 Noemi Sequeira BRIM RAISER: BL Lumbar erector spinae TPI (0.125% Marcaine, [...] ongoing as of 04/17/21 -03/08/21 Noemi Sequeira BRIM RAISER: Left rhomboid TPI (0.125% Marcaine, 40 mg Kenalog) -02/03/21 LESI - moderate relief for 4 days Prior spine surgery: -2006 L4-5 Discectomy Previously treated by: -[facility], previously Dr. Niko [...] today. She has an evaluation at the [facility] tomorrow at the Spine Center. RECOMMENDATIONS: [...] reviewed 04/04/22 CT abd/pelvis with IV contrast, [facility], report: Abdominal wall: Old healed left pelvis fractures. Degenerative changes and scoliosis of the lumbar spine. IMPRESSION: No acute abdominal pathology. No acute inflammatory process. No obstructing urinary tract stone. No evidence for bowel obstruction. 11/15/21 XR abd, [facility], report: No acute osseous abnormality. There is moderate dextrocurvature of the lumbar spine. 05/08/2021 XR right hip/pelvis, [facility], report: Rotatory dextro scoliosis of the [...] TIME: 3:15 PM documented in this encounter [facility] 05-13-2022 Note CONSULTATION CONSULTATION DATE: 05/13/2022 [...] mg at h.s., diclofenac 75 mg b.i.d., Goodwin 5 mg b.i.d. EXAM: Notable for the [...] today. She has an evaluation at the [facility] tomorrow at the Spine Center. RECOMMENDATIONS: We will see the patient back in the office after she undergoes evaluation there to discuss her treatment plan thereafter. We will see the patient back in the office in approximately four weeks' time or sooner if needed. [facility] 04-06-2022 Note CONSULTATION CONSULTATION DATE: 04/06/2022 [...] to kidney dysfunction also. The patient takes Goodwin, however, is very controlled and limits it to the point of detriment. Education was done. The patient was instructed to take the Goodwin to a b.i.d. to t.i.d. basis. The [...] b.i.d. basis. The patient may increase the Goodwin to 5/325 t.i.d. We will schedule the [...] the procedure. CC: Galina Rogers M.D. [facility] 03-11-2022 Note CONSULTATION CONSULTATION DATE: 03/11/2022 [...] gave improvement for 24 hours. Medications include Goodwin 5/325 b.i.d., diclofenac 75 mg b.i.d., citalopram [...] back pain. PLAN: We will refill her Goodwin 5/325 b.i.d. We will prescribe her Buderer cream with gabapentin, ketorolac and prilocaine/lidocaine to be placed over her right knee. We will trial Requip 0.25 mg q.h.s. We will see the patient in the clinic in three months' time unless otherwise indicated. Patient agrees with the plan. [facility] 01-28-2022 Note CONSULTATION CONSULTATION DATE: 01/28/2022 [...] daily which decreases her pain. Medications include Goodwin 5/325 b.i.d., Flexeril 5 mg b.i.d., diclofenac [...] does consent to. We will refill the Goodwin 5/325 b.i.d. We will pre-authorize for a right genicular nerve block under fluoroscopy. Patient will follow up in the clinic thereafter. [facility] 01-28-2022 Note CONSULTATION PROCEDURE DATE: 01/28/2022 [...] be followed up in the office. [facility] 12-31-2021 Note CONSULTATION CONSULTATION DATE: 12/31/2021 [...] Current medications include diclofenac 75 mg b.i.d., Goodwin 5/325 b.i.d., citalopram, Flexeril and multivitamin regimen. The patient does state that she breaks her Goodwin in half and the most she takes [...] and would like to move forward. [facility] 09-30-2021 Note CONSULTATION CONSULTATION DATE: 09/30/2021 This is a very jiwpkohi15-jetl-hoe female accompanied by her returning to the [...] Current medications include diclofenac 50 mg b.i.d., Goodwin 5/325 b. i.d. and Tylenol. She does [...] at 25 mg q.h.s. Refill for her Goodwin 5/325 b.i.d. will be sent as well. The patient is to continue with her vitamin regimen which she is currently compliant with, as well as heat application and pool exercises. The patient will be followed up in the office in three months' time unless otherwise indicated. The patient agrees with the plan of care. [facility] Evaluation note Diagnosis Chronic bilateral low back pain with right-sided sciatica- Primary Back pain, lumbosacral Lumbago Chronic sacroiliac joint pain Disorders of sacrum Lumbar spondylosis Lumbosacral spondylosis without myelopathy Scoliosis of lumbar spine, unspecified scoliosis type [facility] Spinal stenosis, lumbar region with neurogenic claudication- Primary Spondylolisthesis, lumbar region Other idiopathic scoliosis, lumbar region [facility] Diagnosis Obesity, Class I, BMI 30-34.9- Primary Obesity, unspecified Spinal stenosis, lumbar region with neurogenic claudication documented in this encounter [facility] Summary Purpose Family History No Family [...] By Contac t Referred To Contact [facility] [place] Diagnoses Spinal stenosis, lumbar region with neurogenic claudication Procedures CONSULT TO [facility] ([facility] PAIN) OFFICE/OUTPATIENT [facility] MDM 60-74 MINUTES Carolyn Vanegas MD [address] [place] [address] Referral ID Status Reason Start Date Expiration Date Visits Requested Visits Authorized [id number] Pending Review PCP Requested Referral 09/21/2022 09/21/2023 1 1 Additional Source Comments INFORMATION SOURCE (unrecogn ized section and content) DATE CREATED AUTHOR 09/13/2017 [facility] DATE CREATED AUTHOR AUTHOR'S ORGANIZ ATION 12/13/2020 [facility] DATE CREATED AUTHOR AUTHOR'S ORGANIZ ATION 07/30/2022 [facility] pital DATE CREATED AUTHOR AUTHOR'S ORGANIZ ATION 09/22/2022 [facility] DATE CREATED AUTHOR AUTHOR'S ORGANIZ ATION 08/13/2023 [facility] dical [facility] EPIC DATE CREATED AUTHOR AUTHOR'S ORGANIZ ATION 08/25/2023 [facility] DATE CREATED AUTHOR AUTHOR'S ORGANIZ ATION 10/10/2023 [facility] Source Comments (unrecognize d section and content) In the event this informatio n is protected by the Federal Confidentiality of Alcohol and Drug Abuse Patient Records regulations: The Federal rules restrict any use of the information to criminally investigate or prosecute any alcohol or drug abuse patient[facility] the event this information is protected by the Federal Confidentiality of Alcohol and Drug Abuse Patient Records regulations: The Federal rules restrict any use of the information to criminally investigate or prosecute any alcohol or drug abuse patient.[facility] the event this information is protected by the Federal Confidentiality of Alcohol and Drug Abuse Patient Records regulations: The Federal rules restrict any use of the information to criminally investigate or prosecute any alcohol or drug abuse patient.[facility] Reason for Visit (unrecogniz ed section and content) Reason Comments New Patient Evaluation Low Back Pain Reason Comments New Patient Care Teams (unrecognized sec tion and content) Skip Hoist Operator Relationship Specialty Start Date End Date Galina Rogers MD [address] [place] [phone] PCP - General Family Medicine 05/14/22 Colette De Leon Jr., DO [address] [facility] [address] [place], [place] [id number] Referring Orthopedics 05/03/22 Porsha Garcia [address] [address] Pain Management 05/14/22 Colette De Leon Jr., DO [address] [facility] [address] [place] [address] Orthopedics 05/14/22 Skip Hoist Operator Relationship Specialty Start Date End Date Galina Rogers MD [address] [facility] [place] [address] PCP - General Family Medicine 05/14/22 Colette De Leon Jr., DO [address] [place] [address] Referring Orthopedics 05/03/22 Lakshmipathy, Narendranath [address] [place] [phone] Pain Management 05/14/22 Colette De Leon Jr., DO [address] [place] [address] Orthopedics 05/14/22 Galina Rogers MD [address] [facility] [place] [address] Referring Family Medicine 08/11/22 Skip Hoist Operator Relationship Specialty Start Date End Date Galina Rogers MD [address] [facility] [place] [address] PCP - General Family Medicine 05/14/22 Colette De Leon Jr., DO [address] [place] [address] Referring Orthopedics 05/03/22 Tereshmipathy, Narendranath [address] [place] [address] [place] [address], [place] [phone] Pain Management 05/14/22 Colette De Leon Jr., DO [address] [place] [address] Orthopedics 05/14/22 Galina Rogers MD [address] [place] [phone] Referring Family Medicine 08/11/22 FOR RECORDS PERTAINING [...] BE BASED ON THE PRIMARY CLINICAL RECORDS. [facility]. provides no warranty or guarantee of the accuracy or completeness of information in this document.
[2023-10-13] MEDS: LEVOTHYROXINE SODIUM 75 MCG TABLET PO (06:01)
[2023-10-13] MEDS: LIOTHYRONINE SODIUM 25 MCG TABLET PO (06:01)
[2023-10-13 07:25] LABS: BUN Creatinine Ratio 24.1; Chloride 98 mmol/L (98-107); Estimated GFR (African America >60 (>=60); Estimated GFR (Non-African Ame >60 (>=60); Glucose 102 mg/dL (74-106); Sodium 134 mmol/L (136-145); Troponin I High Sensitivity 13.9 pg/mL (4.0-51.3)
[2023-10-13 07:27] LABS: Chol HDL Ratio 2.6; Cholesterol 198 mg/dL (<=200); HDL Cholesterol 77 mg/dL (40-60); Thyroid Stimulating Hormone 0.032 uIU/mL (0.358-3.740); Triglycerides 64 mg/dL (<=150); VLDL CHOLESTEROL 12.8 mg/dL
[2023-10-13 07:30] LABS: Hematocrit 38.4 % (36.0-48.0); Hemoglobin 12.5 g/dL (12.0-16.0); Mean Corpuscular HGB Conc 32.6 g/dL (29.9-35.2); Mean Corpuscular Volume 98.2 fL (81.0-99.0); Mean Platelet Volume 8.8 fL (9.5-13.5); Platelet Count 249 10^3/uL (150-450); Red Blood Count 3.91 10^6/uL (4.20-5.40); Red Cell Distribution Width 13.2 % (11.0-15.0); White Blood Count 5.4 10^3/uL (4.0-11.0)
--- NOTE | 2023-10-13 07:46 | CA_ITS ---
Patient Name: KARINA CORMIER MR#: [id number] : 1940 Exam Date: 10/13/2023 Ordering Doctor: DR Luis Rogers . ECHOCARDIOGRAM REPORT PROCEDURE: CA ECHO DOPPLER COMPLETE INDICATIONS: Chest pain COMPARISON: None. DESCRIPTION: COMPLETE ECHOCARDIOGRAM Real-time transthoracic echocardiography with 2D, M-mode, spectral and color flow Doppler performed. QUALITY: Technical quality was good. LEFT VENTRICLE: Normal chamber size. Moderate left ventricular hypertrophy. LV EF: Global left ventricular systolic function is normal. Visual estimation of left ventricular ejection fraction is 60-65%. No obvious wall motion abnormalities. DIASTOLIC: Normal diastolic function. ATRIAL SEPTUM: Inadequately seen. LEFT ATRIUM: Normal chamber size. RIGHT ATRIUM: Normal chamber size. RIGHT VENTRICLE: Normal chamber size. Normal right ventricular systolic function. TRICUSPID VALVE: Normal mobility and thickness. Mild regurgitation. Mild pulmonary hypertension. RVSP 35mmHg MITRAL VALVE: Normal mobility and thickness. No evidence of mitral valve stenosis. There is no mitral annular calcification. Mild mitral regurgitation. AORTIC VALVE: Normal trileaflet appearance. No visible sclerosis. Normal leaflet mobility. No evidence of aortic valve stenosis. No aortic regurgitation. AORTIC ROOT: Normal diameter and appearance. PULMONIC VALVE: Normal thickness and mobility. No stenosis. Trivial regurgitation. PERICARDIUM: Anterior free space; trivial effusion versus fat pad IVC: Collapses with inspirations. Normal size. CONCLUSION: 1. Global left ventricular systolic function is normal; visually estimated ejection fraction is 60 to 65% 2. Normal right ventricular size and systolic function 3. Normal diastolic function 4. Moderately increased left ventricular wall thickness 5. Mild tricuspid regurgitation 6. Mildly elevated right ventricular systolic pressure; RVSP 35 mmHg 7. Mild mitral regurgitation 8. Anterior free space; trivial effusion versus fat pad Adult Echocardiography Procedure Report Left Ventricle LVEDD (3.7 - 5.6 cm): 3.72 cm LVESD (2.2 - 4.0 cm): 2.47 cm LVIVS thickness (0.6 - 1.2 cm): 1.61 cm LVPW thickness (0.5 - 1.0 cm): 1.36 cm e': 0.11 m/s E - e': 4.19 LVOT Max Gradient: 3.60 mm[Hg], 3.85 mm[Hg] LVOT Area (cm2): 0.97 m/s Peak Velocity (LVOT): 0.95 m/s, 0.98 m/s Mean Velocity (LVOT): 0.67 m/s LVOT Diameter 1.84 cm Left Ventricular Ejection Fraction: 66.80 % Left Atrium LA Volume Index (2D A2C): 33.81 ml/m2 Left Atrium Systolic Dimension: 3.23 cm Mitral Valve MV E to A Ratio: 0.60 Mitral Valve A-Wave Peak Velocity: 0.76 m/s Mitral Valve E-Wave Peak Velocity: 0.46 m/s Right Ventricle RV Internal Diastolic Dimension: 2.91 cm Aorta AO Root Diam: 3.01 cm Ascending Ao Diam: 2.47 cm Aortic Valve AoV Area (Peak Duncan): 2.00 cm2, 1.93 cm2, 2.08 cm2 AoV Area (VTI): 1.92 cm2, 1.91 cm2, 1.93 cm2 Peak Velocity(Antegrade Flow): 1.31 m/s, 1.26 m/s Peak Gradient(Antegrade Flow): 6.88 mm[Hg], 6.32 mm[Hg] Mean Velocity(Antegrade Flow): 0.88 m/s, 0.87 m/s Mean Gradient(Antegrade Flow): 3.58 mm[Hg], 3.49 mm[Hg] Velocity Time Integral: 26.33 cm, 25.97 cm Tricuspid Valve Peak Velocity (Regurgitant Flow): 2.51 m/s, 2.84 m/s, 2.63 m/s Pulmonic Valve Mean Gradient: 2.89 mm[Hg], 2.35 mm[Hg], 2.47 mm[Hg] Mean Velocity: 0.80 m/s, 0.71 m/s, 0.72 m/s Peak Velocity: 1.18 m/s Peak Gradient: 5.93 mm[Hg], 5.59 mm[Hg], 5.32 mm[Hg] Right Atrium Right Atrium Systolic Pressure: 34.53 ml, 34.53 ml Dictated by: Raz Luis M.D. on 10/13/2023 at 17:00 Approved by: Raz Luis M.D. on 10/13/2023 at 17:03
[2023-10-13 08:02] LABS: Estimated Average Glucose 103 mg/dL; Glycohemoglobin A1C 5.2 % (4.5-6.2)
--- NOTE | 2023-10-13 08:21 | P.HP_ITS ---
HPI H&P: HPI History of Present Illness Chief complaint: Chest Pain RULE OUT MYOCARDIAL INFARCTION Narrative: He had an episode with acute onset of chest pain some mild dyspnea. Pain was more in the upper chest but then progressed into the lower chest. He was given nitroglycerin and the pain resolved. In ER workup was unremarkable. CTA even showed no evidence of pulmonary embolism. Suggestion of fluid. BNP that was normal When I saw patient up on the medical surgical floor, she was resting comfortably in bed, no complaints of chest pain or shortness of breath. Opioid HPI Opioid Management Most Recent Pain and Opioid Data: Last Pain Scale 3 10/13/23 03:12 Last Pain Intensity 0 08/10/22 12:00 Last Pain Assessment 10/13/23 06:00 Last MAR Pain Assessment 10/13/23 00:52 Last ORT Total Score 1 10/13/23 03:09 Last ORT Risk Category Low Risk 10/13/23 03:09 PFSH PFSH Medical History (Updated 10/13/23 @ 08:23 by Luis Rogers MD) Pelvic fracture ?S32.9XXA - Fracture of unspecified parts of lumbosacral spine and pelvis, initial encounter for closed fracture (ICD-10) TIA (transient ischemic attack) ?G45.9 - Transient cerebral ischemic attack, unspecified (ICD-10) Closed fracture of coccyx ?S32.2XXA - Fracture of coccyx, initial encounter for closed fracture (ICD- 10) Osteoarthritis ?M19.90 - Unspecified osteoarthritis, unspecified site (ICD-10) H/O pyelonephritis ?Z87.448 - Personal history of other diseases of urinary system (ICD-10) Syncope ?R55 - Syncope and collapse (ICD-10) Generalized weakness ?R53.1 - Weakness (ICD-10) Dizziness ?R42 - Dizziness and giddiness (ICD-10) Surgical History Pain management ?R52 - Pain, unspecified (ICD-10) H/O bladder repair surgery ?Z98.890 - Other specified postprocedural states (ICD-10) H/O breast surgery ?Z98.890 - Other specified postprocedural states (ICD-10) H/O knee surgery ?Z98.890 - Other specified postprocedural states (ICD-10) H/O foot surgery ?Z98.890 - Other specified postprocedural states (ICD-10) History of right knee joint replacement ?Z96.651 - Presence of right artificial knee joint (ICD-10) History of YAG laser capsulotomy of lens ?Z98.49 - Cataract extraction status, unspecified eye (ICD-10) Hx laparoscopic cholecystectomy ?Z90.49 - Acquired absence of other specified parts of digestive tract (ICD- 10) H/O: hysterectomy ?Z90.710 - Acquired absence of both cervix and uterus (ICD-10) History of arthroscopic knee surgery ?Z98.890 - Other specified postprocedural states (ICD-10) H/O discectomy ?Z98.890 - Other specified postprocedural states (ICD-10) H/O dilation and curettage ?Z98.890 - Other specified postprocedural states (ICD-10) History of appendectomy ?Z90.49 - Acquired absence of other specified parts of digestive tract (ICD- 10) Hx of tonsillectomy ?Z90.89 - Acquired absence of other organs (ICD-10) Family History (Updated 10/13/23 @ 03:25 by Areli Owens RN) Other Family history of CHF (congestive heart failure) Social History (Updated 10/13/23 @ 03:26 by Areli Owens RN) Within the past year, how often did you have a drink containing alcohol: never Score interpretation: A score less than 3 is consistent with normal alcohol consumption. Smoking status: Never smoker Non-prescribed substance use: denies use Previous occupational history: Retired, , lives at home Highest level of school completed/degree received: high school graduate Are you now , , , , never or living with a partner: In a typical week, how many times do you talk on the telephone with family, friends, or neighbors: once per week How often do you get together with friends or relatives: once per week How often do you attend congregational or methodist services: 1-3 times per year Little interest or pleasure in doing things: not at all Feeling down, depressed, or hopeless: not at all Feel stressed/tense/nervous/anxious/difficulty sleeping: not at all Gender Identity: female Meds Home Medications and Allergies Home Medications ?Medication ?Instructions ?Recorded ?Confirmed ?Type B complex with vitamin 1 cap PO DAILY 07/26/22 10/12/23 History V-iojnfkakf-phit capsule aspirin 81 mg tablet,delayed 81 mg PO DAILY 07/26/22 10/12/23 History release calcium carb-vit D3-minerals 600 1 tab PO DAILY 07/26/22 10/12/23 History mg calcium-400 unit tablet capsaicin 0.025 % topical patch 1 patch topical DAILY pain 07/26/22 10/12/23 History (Salonpas-Hot) citalopram 10 mg tablet 10 mg PO DAILY 07/26/22 10/12/23 History fexofenadine 180 mg tablet 180 mg PO DAILY 07/26/22 10/12/23 History (Benita Allergy) flaxseed oil 1,000 mg capsule 1,000 mg PO DAILY 07/26/22 10/12/23 History glucosamine 750 gv-zsassp-nqh 2-C 1 tab PO DAILY 07/26/22 10/12/23 History 30 mg-D3 1,000 unit-maida 1 mg tablet (Mjfopvohfxl-Wexdemzhuek-JBU + vitD) isosorbide mononitrate 30 mg 30 mg PO DAILY 07/26/22 10/12/23 History tablet,extended release 24 hr liothyronine 25 mcg tablet 25 mcg PO DAILY 07/26/22 10/12/23 History (Cytomel) melatonin 3 mg capsule 3 mg PO DAILY 07/26/22 10/12/23 History metoprolol succinate 50 mg 50 mg PO BID 07/26/22 10/12/23 History tablet,extended release 24 hr multivitamin 1 tab PO DAILY 07/26/22 10/12/23 History nitroglycerin 0.4 mg sublingual 0.4 mg sublingual Q5M PRN chest 07/26/22 10/12/23 History tablet pain cyclobenzaprine 10 mg tablet 10 mg PO BEDTIME 04/20/23 10/12/23 History ferrous sulfate 325 mg (65 mg 325 mg PO BID 09/02/23 10/12/23 History iron) tablet hydrocodone 5 mg-acetaminophen 325 1 tab PO TID PRN pain #90 tabs 10/06/23 10/12/23 Rx mg tablet cyclobenzaprine 5 mg tablet 5 mg PO QAM 10/13/23 10/13/23 History diclofenac sodium 75 mg 75 mg PO BID 10/13/23 10/13/23 History tablet,delayed release levothyroxine 75 mcg tablet 75 mcg PO QAM 10/13/23 10/13/23 History pantoprazole 40 mg tablet,delayed 40 mg PO DAILY #30 tabs 10/13/23 Rx release (Protonix) Allergies Allergy/AdvReac Type Severity Reaction Status Date / Time Penicillins Allergy Severe Hives Verified 10/12/23 21:45 codeine AdvReac Intermediate Dizziness Verified 10/12/23 21:45 fluconazole [From Diflucan] AdvReac Intermediate Hives Verified 09/26/23 10:50 quinine [From Quinamm] AdvReac Mild Headache Verified 10/12/23 21:45 decongest multi-action AdvReac Mild Headache Uncoded 10/12/23 21:45 Exam Constitutional Vital Signs, click to edit/add: Last Vital Signs Temp 97.7 F 10/13/23 02:53 Pulse 90 10/13/23 08:00 Resp 18 10/13/23 04:25 BP 165/80 H 10/13/23 04:25 Pulse Ox 97 10/13/23 04:25 O2 Del Method Nasal Cannula 10/13/23 04:25 O2 Flow Rate 3 10/13/23 04:25 Documenting provider has reviewed patient's vital signs: yes Common normals: no apparent distress HENMT Head and scalp: normal to inspection (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) Chest Common normals: inspection of chest normal Respiratory Common normals: normal respiratory effort, no retractions and clear to auscultation bilaterally Cardio Common normals: regular rate, regular rhythm and no murmurs GI Common normals: Normal to inspection, nondistended, normoactive bowel sounds present and soft to palpation; tender Palpation: tender (Minimal tenderness) Details: epigastric Results Labs Labs: Short CBC 10/12/23 10/13/23 Range/Units 21:52 06:50 WBC 6.2 5.4 (4.0-11.0) 10^3/uL Hgb 11.7 L 12.5 (12.0-16.0) g/dL Hct 34.6 L 38.4 (36.0-48.0) % Plt Count 216 249 (150-450) 10^3/uL BMP 10/12/23 10/13/23 21:52 06:50 Sodium 132 L 134 L Potassium 4.5 4.0 Chloride 94 L 98 Carbon Dioxide 30.0 28.0 BUN 26.0 H 21.0 H Creatinine 0.92 0.87 Glucose 113 H 102 Calcium 9.0 9.0 Liver Function 10/12/23 Range/Units 21:52 Total Bilirubin 0.2 (0.2-1.0) mg/dL Direct Bilirubin 0.1 (0.0-0.2) mg/dL AST 27 (15-37) U/L ALT 35 (14-59) U/L Alkaline Phosphatase 80 (46-116) U/L Albumin 3.5 (3.4-5.0) g/dL Assessment and Plan Assessment and Plan (1) CAD (coronary artery disease): (2) Hypothyroid: (3) Hypertension: Qualifiers: Hypertension type: unspecified Qualified Code(s): I10 - Essential (primary) hypertension Plan Admission findings: Patient with chest pain, resolved by 1 nitroglycerin. In ER workup was negative. BNP is normal despite suggestion of fluid on CTA. Cardiac markers are negative Chest pain with a history of coronary artery disease: Echocardiogram this morning. If ejection fraction is preserved from compared to previous, should be discharged to home in improving condition. Medications see list. Follow-up with me in the office within the next few days. Epigastric tenderness-likely gastritis versus GERD-will start patient on IV Protonix here and then Protonix orally at home. Hypertension: Blood pressure well-controlled, continue with current medications Hypothyroidism-monitor as an outpatient Anxiety and depression-maintain current medications Admission status: Chest pain has resolved, medically necessary treatment likely to span just 1 midnight. Continue with observation status.
--- NOTE | 2023-10-13 08:21 | PM.DS1 ---
DS: Providers Provider Date of admission: 10/13/23 02:46 Primary care physician: Luis Rogers MD DS: Diagnosis Discharge Diagnosis (1) Melchor's palsy: (2) Chest pain, rule out acute myocardial infarction: (3) CAD (coronary artery disease): (4) Hypothyroid: DS: Summary Hospital Course Hospital Course: Patient seen and evaluated in the emergency room with acute onset of midsternal chest pain. This chest pain progressed to lower sternal area, was relieved with nitroglycerin, patient was admitted overnight to trend her troponins. Her troponins were negative. BNP was negative. Echocardiogram showed excellent ejection fraction. Her symptoms have resolved. At this point we will discharge patient to home in improving condition. Medications see list. Follow-up with me in the office within the next 1 to 3 days. Status at Discharge Overall status at discharge: patient is back to baseline Time Spent with Patient Time attestation: Total time spent providing and/or coordinating discharge services: Time spent: greater than 30 minutes Exam Constitutional Vital Signs, click to edit/add: Last Vital Signs Temp 97.7 F 10/13/23 02:53 Pulse 90 10/13/23 08:00 Resp 18 10/13/23 04:25 BP 165/80 H 10/13/23 04:25 Pulse Ox 97 10/13/23 04:25 O2 Del Method Nasal Cannula 10/13/23 04:25 O2 Flow Rate 3 10/13/23 04:25 Documenting provider has reviewed patient's vital signs: yes Common normals: no apparent distress HENMT Head and scalp: normal to inspection (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) Chest Common normals: inspection of chest normal Respiratory Common normals: normal respiratory effort, no retractions and clear to auscultation bilaterally Cardio Common normals: regular rate, regular rhythm and no murmurs GI Common normals: Normal to inspection, nondistended, normoactive bowel sounds present and soft to palpation; tender Palpation: tender (Minimal tenderness) Details: epigastric DS: Data Data Completed and Pending Labs on day of discharge: Labs from last 24 hours 10/13/23 10/13/23 10/12/23 06:50 01:05 21:52 WBC 5.4 6.2 RBC 3.91 L 3.62 L Hgb 12.5 11.7 L Hct 38.4 34.6 L MCV 98.2 95.6 MCH 32.0 32.3 MCHC 32.6 33.8 RDW 13.2 13.0 Plt Count 249 216 MPV 8.8 L 9.5 Neut % (Auto) 72.0 Lymph % (Auto) 10.8 L [place] % (Auto) 15.0 H Eos % (Auto) 0.6 L Baso % (Auto) 0.3 Neut # (Auto) 4.5 Lymph # (Auto) 0.7 L [place] # (Auto) 0.9 H Eos # (Auto) 0.0 Baso # (Auto) 0.0 Abs Immat Gran (auto) 0.08 H Imm/Tot Granulo (auto) 1.3 H D-Dimer 0.78 H* Sodium 134 L 132 L Potassium 4.0 4.5 Chloride 98 94 L Carbon Dioxide 28.0 30.0 Anion Gap 12.0 12.5 BUN 21.0 H 26.0 H Creatinine 0.87 0.92 Est GFR ( Amer) >60 >60 Est GFR (Non-Af Amer) >60 58 L BUN/Creatinine Ratio 24.1 28.3 Glucose 102 113 H Estimat Average Glucose 103 Hemoglobin A1c 5.2 Calcium 9.0 9.0 Total Bilirubin 0.2 Direct Bilirubin 0.1 AST 27 ALT 35 Alkaline Phosphatase 80 Troponin I High Sens 13.9 21.2 18.6 NT-Pro-B Natriuret Pep 425.0 Total Protein 6.5 Albumin 3.5 Globulin 3.0 Albumin/Globulin Ratio 1.2 Triglycerides 64 Cholesterol 198 LDL Cholesterol, Calc 109.0 VLDL Cholesterol 12.8 HDL Cholesterol 77 H Cholesterol/HDL Ratio 2.6 Lipase 67.0 TSH 0.032 L Discharge Plan Discharge Disposition: Home, Self-Care Condition: Fair Discharge Medications: New pantoprazole [Protonix] 40 mg tablet,delayed release (DR/EC) 40 mg PO DAILY Qty: 30 11RF Continued cyclobenzaprine 10 mg tablet 10 mg PO BEDTIME ferrous sulfate 325 mg (65 mg iron) tablet 325 mg PO BID fexofenadine [Benita Allergy] 180 mg tablet 180 mg PO DAILY aspirin 81 mg tablet,delayed release (DR/EC) 81 mg PO DAILY Patient Comments: pt takes every other day calcium carbonate-vit D3-min 600 mg calcium- 400 unit tablet 1 tab PO DAILY Patient Comments: takes one tablet at 1200 and 1800 citalopram 10 mg tablet 10 mg PO DAILY liothyronine [Cytomel] 25 mcg tablet 25 mcg PO DAILY multivitamin Tablet 1 tab PO DAILY flaxseed oil 1,000 mg capsule 1,000 mg PO DAILY Sgtcxjkl-Fypgce-NGB with vit D 750-30-1,000-1 vf-ac-cytn-mg tablet 1 tab PO DAILY isosorbide mononitrate 30 mg tablet extended release 24 hr 30 mg PO DAILY B complex with P-wtgomeort-Dz Capsule 1 cap PO DAILY melatonin 3 mg capsule 3 mg PO DAILY nitroglycerin 0.4 mg tablet, sublingual 0.4 mg sublingual Q5M PRN (Reason: chest pain) Patient Comments: PRN Rx Instructions: do not exceed 3 doses per episode capsaicin [Salonpas-Hot] 0.025 % adhesive patch,medicated 1 patch topical DAILY Rx Instructions: do not leave patch on for more than 8 hrs metoprolol succinate 50 mg tablet extended release 24 hr 50 mg PO BID hydrocodone-acetaminophen 5-325 mg tablet 1 tab PO TID PRN (Reason: pain) Qty: 90 0RF cyclobenzaprine 5 mg tablet 5 mg PO QAM diclofenac sodium 75 mg tablet,delayed release (DR/EC) 75 mg PO BID levothyroxine 75 mcg tablet 75 mcg PO QAM Print Language: Upper Sorbian Patient Instructions: Pantoprazole (By mouth) (Protonix), Chest Pain (DC), Dyspnea (DC) Forms: Portal Instructions Follow Up Appointments: @ 9:45am with Dr. Rogers [phone] Discharge Date/Time: 10/13/23 15:52
--- NOTE | 2023-10-13 09:56 | SWNOTE1 ---
SW met with pt to discuss dc needs. Pt lives at home with . Pt's was in room as well. Pt does use a walker at home to get around and they have a chair lift to go up and down the stairs. At this time pt and deny any discharge needs. SW to follow as needed. Medicare Outpatient Observation Notice reviewed and discussed with patient. Pt. verbalized understanding and signed the form. Original given to patient and copy placed in patient?s chart.
[2023-10-13] MEDS: FERROUS SULFATE 325 MG TABLET PO (10:00)
[2023-10-13] MEDS: FOLIC ACID/VIT B6/VIT B12 TABLET 1 TAB PO (10:00)
[2023-10-13] MEDS: MULTIVITAMIN TABLET 1 TAB PO (10:00)
[2023-10-13] MEDS: CETIRIZINE HCL 10 MG TABLET PO (10:00)
[2023-10-13] MEDS: ASPIRIN 81 MG TABLET.DR PO (10:00)
[2023-10-13] MEDS: METOPROLOL SUCCINATE 50 MG TAB.ER.24H PO (10:00)
[2023-10-13] MEDS: CITALOPRAM HYDROBROMIDE 20 MG TABLET 10 MG PO (10:00)
[2023-10-13] MEDS: ISOSORBIDE MONONITRATE 30 MG TAB.ER.24H PO (10:00)
[2023-10-13] MEDS: CALCIUM CARBONATE 600 MG/VITAMIN D3 400 IU TABLET 1 TAB PO (10:00)
[2023-10-13] MEDS: CYCLOBENZAPRINE HCL 10 MG TABLET 5 MG PO (10:01)
[2023-10-13] MEDS: PANTOPRAZOLE SODIUM 40 MG VIAL IV (10:14)
--- NOTE | 2023-10-13 10:32 | SWNOTE1 ---
Correction to previous note; Medicare Outpatient Observation Notice reviewed and discussed with patient and . Pt and verbalized understanding and pt's signed the form. Original given to patient's and copy placed in patient?s chart.
--- NOTE | 2023-10-17 15:27 | CM.DCFOLLOWU ---
1st attempt 10/17/23, no answer
--- NOTE | 2023-10-18 13:46 | CM.DCFOLLOWU ---
Person spoke with: Alexa How are you feeling? Much better How is your pain? No pain Did you understand your discharge instructions? Yes Do you have any questions about your discharge instructions? No Were you given any prescriptions at discharge? Yes Were you able to get your prescriptions filled? Yes Do you understand how to take your medications as ordered? Yes Do you have any questions about your follow up appointment and do you plan to keep your follow up appointment? No I will go to all of my f/u appts and have another test scheduled at the hospital. Is there anything else that you would like to discuss? No Questions/Comments/Concerns/Other:
== END 2023-10-13 15:52 | disposition home or self-care (01) ==
LOC: ER 10-13 01:46 → MS 10-13 02:48
PROVIDERS: Registered Nurse; Admitting Provider Family Medicine; Emergency Provider Internal Medicine; PCP Family Medicine; Visit Provider Family Medicine
DX: R07.9 Chest pain, unspecified (principal); I25.10 Atherosclerotic heart disease of native coronary artery without angina pectoris; G51.0 Bell's palsy; E03.9 Hypothyroidism, unspecified; R10.13 Epigastric pain; I10 Essential (primary) hypertension; F41.9 Anxiety disorder, unspecified; F32.A Depression, unspecified; R06.02 Shortness of breath; I69.392 Facial weakness following cerebral infarction; Z79.899 Other long term (current) drug therapy
CPT/HCPCS: 36415; 71045; 71275; 80048; 80061; 80076; 83036; 83690; 83880; 84443; 84484; 85025; 85027; 85378; 93005; 93306; 96374; 99285; G0378; Q9967

== ENCOUNTER 2023-10-21 15:53 | Outpatient (OUT) | payer MEDICARE, SELFPAY ==
--- OUTSIDE RECORDS SUMMARY | 2023-10-21 16:10 | XMS_ITS | CCD ---
Author Organization [facility] Care Team Providers Care Pl Sql Developer Name Role Phone PHYSICIAN, DEFAULT Unavailable Unavailable PHYSICIAN, DEFAULT Unavailable Unavailable Haley Matos DO, George Cajetan Unavailable Galina Rogers MD Primary Care Provider [phone] Lakshmipathy, Narendranath Unavailable Haley Matos DO, George [...] Unavailable HOY ., DR MOJICA Admitting Unavailable RJEI, DR HERMES [employer] Unavailable HOY [...] Unavailable HOY ., DR MOJICA Consulting Unavailable [place], DR HERMES [employer] Unavailable LATANYA [...] Codeine; Translations: [CODEINE] Drug Allergy 3 Unknown [facility] (4 sources) Penicillins; Translations: [PENICILLINS] Drug Allergy 3 Unknown [facility] (4 sources) pregabalin; Translations: [PREGABALIN] Drug Allergy 3 Intolerance [facility] Work Phone: (4 sources) Propoxyphene; Translations: [PROPOXYPHENE] Drug Allergy 3 Rash, Unknown [facility] (4 sources) quiNINE; Translations: [QUINAMM] Drug Allergy 3 GI Upset [facility] (5 sources) Decongest Multi-Action; Translations: [Decongest Multi-Action] Drug Allergy 3 Other: See Comments [facility] (1 source) Acetaminophen / HYDROcodone Drug Allergy [facility] Repository (2 sources) Codeine Drug Allergy 3 [facility] (1 source) Fluconazole Drug Allergy [facility] (2 sources) Penicillins Drug allergy (disorder) 3 [facility] Repository (1 source) pregabalin Drug Allergy [facility] Rep[facility] (2 sources) Propoxyphene Drug Allergy [facility] Rep[facility] (1 source) quiNINE Drug Allergy [facility] Repository Medications Completed/Discontinued Medications Medication [...] Comment on above: Take 1 tablet by [facility] twice daily as needed. aspirin 81 mg [...] above: Take by mouth twice daily. 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] Onset: 04-06-2022 Episodic Other [...] Test Name Value Interpretation Reference Range Facility [facility] 08-18-2023 L Specimen: [id number] Received: 08/22/23 Status: SOUT Req Num: [id number] Spec Type: Impression Subm Dr: Galina Rogers MD Tissues: PATHPER Procedures: PATHREVIEW Age/ Patient Sex Location Account Attending Physician Alexa Delgado 83/F [place] [id number] Galina Rogers MD SPEC NUM: [id number] RECD: 08/22/23 STATUS: SOUT REQ NUM: [id number] JANET: 08/18/[address]: Galina Rogers MD ENTERED: 08/22/23-10[address] [facility] DR: Annie Rivas SPEC TYPE: Impression DEPT: SHELLIE Simmons ENTERED BY: [id number] RECV BY: [id number] ORDERED: PATHREVIEW ORDERED: PATHREVIEW Pathologist Review Abnormal [...] initial report for the needed correction CPT: 88067 ---- ---- Specimen: [id number] Received: 08/22/23 Status: SOUAinsley Rejose Num: [id number] Spec Type: Impression Subm Dr: Galina Rogers MD Tissues: PATHPER Procedures: PATHREVIEW ---- Patient: Alexa Delgado [id number] (Continued) ---- Signed (signature on file) [place] Abdul MD 08/24/23918 [place] [facility] Office [facility] (NSADHC ) ALEXA DELGADO ([id number]) 1940 F Date Time Provider Department 09/21/22 1:00 PM CAROLYN VANEGAS [facility] During your visit today, we recorded [...] 2 (more content not included)... Normal [facility] XR LSPINE 2_3 VIEWSon 2022 [...] by: HERMES MENDOZA Date: 2022-07-16 11:[address] [facility] CNOVon 05-14-2022 CNOV Office Visit (SPMESH ) ALEXA DELGADO ([id number]) 1940 F Date Time Provider Department 05/14/22 2:30 PM MARTY DOZIER During your visit today, we recorded the following information about you: Pulse Blood pressure Weight Height 72/minute 158/87 76.4 kg 1.524 m Marty Dozier DO 05/15/2022 10:02 PM Signed [facility] - [facility] Spine [...] Ratio: R>L low back Current Treatment: Medications [place] 5-325 mg BID - helps Diclofenac 75 [...] but still has pain -01/28/22 Noemi Sequeira METALLURGICAL ENGINEER: BL Lumbar erector spinae TPI (0.125% Marcaine, [...] ongoing as of 04/17/21 -03/08/21 Noemi Sequeira METALLURGICAL ENGINEER: Left rhomboid TPI (0.125% Marcaine, 40 mg Kenalog) -02/03/21 LESI - moderate relief for 4 days Prior spine surgery: -2006 L4-5 Discectomy Previously treated by: -[facility], previously Dr. [...] today. She has an evaluation at the [facility] tomorrow at the [facility]. RECOMMENDATIONS: We will see the pat (more content not included)... Normal [facility] CULTURE URINEon 04-05-2022 CULTURE URINE Culture Observations : LIGHT GROWTH OF MIXED GENITAL ALANIS. NO POTENTIAL PATHOGENS SEEN. Normal The [facility] Comment on above: Performed By: #### U RCX ####[facility] [address] [place], [place] [address]Tr. Grace Abdul UA RANDOM W/MICROSCOPICon BACTERIA NONE SEEN Normal NONE SEEN The [facility] Comment on above: Performed By: #### U AMIC ####[facility] [address] [place] [address]Dr. Grace Abdul Bilirubin Ql (U) Negative Normal NEGATIVE The [facility] Comment on above: Performed By: #### U AMIC ####[facility] [address] [place] [address]Dr. Grace Abdul CAST NONE SEEN Normal NONE SEEN The [facility] Comment on above: Performed By: #### U AMIC ####[facility] [address] [place], [place] [address]Dr. Grace Abdul Clarity (U) CLEAR Normal CLEAR The [facility] Comment on above: Performed By: #### U AMIC ####[facility] [address] [place], [place] [address]Dr. Grace Abdul Color (U) YELLOW Normal YELLOW The [facility] Comment on above: Performed By: #### U AMIC ####[facility] Nrqcdels[address] [place], [place] [address]Dr. Grace Abdul Crystals LM Nom (Urine sed) NONE SEEN Normal NONE SEEN The [facility] Comment on above: Performed By: #### U AMIC ####[facility] V[address]tgjotpr[address] [place], [place] [address]Dr. Grace Abdul Epithelial cells LM Ql (Urine sed) RARE Normal NONE SEEN /RARE The [facility] Comment on above: Performed By: #### U AMIC ####[facility] Jcucgt[address] [place], [place] [address]Dr. Grace Abdul Glucose Ql (U) Negative Normal NEGATIVE The [facility] Comment on above: Performed By: #### U AMIC ####[facility] T[address] [place], [place] [address]Dr. Grace Abdul Hemoglobin Ql (U) MODERATE Abnormal NEGATIVE The [facility] Comment on above: Performed By: #### U AMIC ####[facility] Rvrzyqowrs[address] [place], [place] [address]Dr. Grace Abdul Ketones Ql (U) TRACE Abnormal NEGATIVE The [facility] Comment on above: Performed By: #### U AMIC ####[facility] G[address] [place], [place] [address]Dr. Grace Abdul LEUKOCYTES TRACE Abnormal NEGATIVE The [facility] Comment on above: Performed By: #### U AMIC ####[facility] [address] [place] [address]Dr. Grace Abdul MUCOUS NONE SEEN Normal NONE SEEN The [facility] Comment on above: Performed By: #### U AMIC ####[facility] [address]em[address]ft[address] [place] [address]Dr. Benitalee ann Abdul Nitrite Ql (U) Negative Normal NEGATIVE The [facility] Comment on above: Performed By: #### U AMIC ####[facility] [address]fr[address]odz[address] [place] [address]Dr. Benitalee ann Abdul pH (U) 5.0 [pH] Normal 5-9 The [facility] Comment on above: Performed By: #### U AMIC ####[facility] [address]ax[address] [place] [address]Dr. Grace Abdul RBC 0-2 Normal 0-2 The [facility] Comment on above: Performed By: #### U AMIC ####[facility] S[address] [place], [place] [address]Dr. Grace Abdul SPEC GRAVITY 1.015 Normal 1.005-<=1.025 The [facility] Comment on above: Performed By: #### U AMIC ####[facility] [address] [place] [address]Dr. Grace Abdul UA PROTEIN Negative Normal NEGATIVE/ TRACE The [facility] Comment on above: Performed By: #### U AMIC ####[facility] In[address]om[address] [place] [address]Dr. Benitalee ann Abdul Urobilinogen Qn (U) 0.2 {Ashley'U}/dL Normal 0.2 - 1. 0 The [facility] Comment on above: Performed By: #### U AMIC ####[facility] S[address] [place], [place] [address]Dr. Grace Abdul WBC 0-2 Abnormal NONE SEEN The [facility] Comment on above: Performed By: #### U AMIC ####[facility] [address]egr[address]evor[address] [place], [place] [address]Dr. Grace Abdul CBC AUTO DIFFon 04-04-2022 BASO # 0.0 103/ul Normal 0.0-0.1 The [facility] Comment on above: Performed By: #### C BC ####[facility] [address] [place] [id number]. Grace Abdul Basophils/100 WBC (Bld) 0.4 % Normal 0.2-2.0 The [facility] Comment on above: Performed By: #### C BC ####[facility] [address]abs[address] [place] [id number]. Grace Franko EO # 0.1 103/ul Normal 0.0-0.7 The [facility] Comment on above: Performed By: #### C BC ####[facility] [address] [place] [address]Dr. Grace Franko Eosinophils/100 WBC (Bld) 1.3 % Normal 0.9-7.0 The [facility] Comment on above: Performed By: #### C BC ####[facility] [address] [place] [address]Dr. Grace Abdul Erythrocyte distribution width (RBC) [Ratio] 13.7 % Normal 11.0-15.0 The [facility] Comment on above: Performed By: #### C BC ####[facility] [address] [place] [id number]. Grace Abdul Hematocrit (Bld) [Volume fraction] 37.2 % Normal 36.0-48.0 The [facility] Comment on above: Performed By: #### C BC ####[facility] [address] [place] [id number]. Grace Abdul Hemoglobin (Bld) [Mass/Vol] 12.4 g/dL Normal 12.0-16.0 The [facility] Comment on above: Performed By: #### C BC ####[facility] [address] [place] [id number]. Grace Franko IG # 0.02 10e3/ul Normal 0.00-0.03 The [facility] Comment on above: Performed By: #### C BC ####[facility] [address]ks[address] [place] [id number]. Grace Abdul IG % 0.4 % Normal 0.0-0.5 The [facility] Comment on above: Performed By: #### C BC ####[facility] [address] [place], [place] [address]Rs. Grace Abdul LYMPH # 0.8 103/ul Critically low 1.2-3.8 The [facility] Comment on above: Performed By: #### C BC ####[facility] [address] [place] [id number]. Grace Abdul Lymphocytes/100 WBC (Bld) 13.9 % Critically low 20.5-60.0 The [facility] Comment on above: Performed By: #### C BC ####[facility] [address] [place] [id number]. Grace Abdul MANUAL DIFF REQ NO Normal The [facility] Comment on above: Performed By: #### C BC ####[facility] [address] [place] [id number]. Grace Abdul MCH (RBC) [Entitic mass] 30.5 pg Normal 26.7-34.0 The [facility] Comment on above: Performed By: #### C BC ####[facility] [address]shr[address] [place] [id number]. Grace Abdul MCHC (RBC) [Mass/Vol] 33.3 g/dL Normal 29.9-35.2 The [facility] Comment on above: Performed By: #### C BC ####[facility] Qifplvrjsf[address] [place] [id number]. Grace Abdul MCV (RBC) [Entitic vol] 91.4 fL Normal 81.0-99.0 The [facility] Comment on above: Performed By: #### C BC ####[facility] [address] [place] [id number]. Grace Abdul MONO # 0.7 103/ul Normal 0.3-0.8 The [facility] Comment on above: Performed By: #### C BC ####[facility] [address] [place] [id number]. Grace Abdul Monocytes/100 WBC (Bld) 13.5 % Critically high 1.7-12.0 The [facility] Comment on above: Performed By: #### C BC ####[facility] [address] [place] [id number]. Grace Abdul NEUT # 3.8 103/ul Normal 1.4-6.5 The [facility] Comment on above: Performed By: #### C BC ####[facility] [address] [place] [id number]. Grace Abdul Neutrophils/100 WBC (Bld) 70.5 % Normal 43.0-75.0 The [facility] Comment on above: Performed By: #### C BC ####[facility] [address] [place] [id number]. Grace Abdul Platelet mean volume (Bld) [Entitic vol] 9.0 fL Critically low 9.5-13.5 The [facility] Comment on above: Performed By: #### C BC ####[facility] [address]mpq[address] [place] [id number]. Grace Abdul PLT 283 103/ul Normal 150-450 The [facility] Comment on above: Performed By: #### C BC ####[facility] [address] [place] [id number]. Grace Abdul RBC 4.07 106/ul Critically low 4.20-5.40 The [facility] Comment on above: Performed By: #### C BC ####[facility] [address] [place], [place] [address]Dr. Grace Abdul WBC 5.4 103/ul Normal 4.0-11.0 The [facility] Comment on above: Performed By: #### C BC ####[facility] [address] [place] [id number]. Grace Abdul CT ABD/PELV W CONon 04-04-19 [...] EMILY NAVARRETE Date: 2022-04-04 16:59 Normal The [facility] ER URINE PROFILEon 3 Bilirubin Ql (U) Negative Normal NEGATIVE The [facility] Comment on above: Performed By: #### ROBERT FELDER ####[facility] [address] [place], [place] [address]Ed. Grace Abdul Clarity (U) CLEAR Normal CLEAR The [facility] Comment on above: Performed By: #### ROBERT FELDER ####[facility] [address]zz[address] [place], [place] [address]QmLisette Abdul Color (U) LT. YELLOW Normal YELLOW The [facility] Comment on above: Performed By: #### ROBERT FELDER ####[facility] [address] [place] [address]Dr. Grace HIGGINS A micrscopic examination will be performed if indicated. Normal The [facility] Comment on above: Performed By: #### ROBERT FELDER ####[facility] [address] [place] [address]Dr. Grace Abdul Glucose Ql (U) Negative Normal NEGATIVE The [facility] Comment on above: Performed By: #### ROBERT FELDER ####[facility] [address]toc[address] [place] [address]Dr. Grace Abdul Hemoglobin Ql (U) SMALL Abnormal NEGATIVE The [facility] Comment on above: Performed By: #### ROBERT FELDER ####[facility] [address] [place] [address]Dr. Grace Abdul Ketones Ql (U) Negative Normal NEGATIVE The [facility] Comment on above: Performed By: #### ROBERT FELDER ####[facility] [address] [place], [place] [address]Dr. Grace Abdul LEUKOCYTES TRACE Abnormal NEGATIVE The [facility] Comment on above: Performed By: #### ROBERT FELDER ####[facility] [address] [place], [place] [address]Dr. Grace Abdul Nitrite Ql (U) Negative Normal NEGATIVE The [facility] Comment on above: Performed By: #### ROBERT FELDER ####[facility] [address] [place] [address]Dr. Grace Abdul pH (U) 7.5 [pH] Normal 5-9 The [facility] Comment on above: Performed By: #### ROBERT FELDER ####[facility] [address]ct[address] [place], [place] [address]Dr. Grace Abdul SPEC GRAVITY 1.005 Normal 1.005-<=1.025 The [facility] Comment on above: Performed By: #### ROBERT FELDER ####[facility] [address] [place], [place] [address]Dr. Grace Abdul UA PROTEIN Negative Normal NEGATIVE/ TRACE The [facility] Comment on above: Performed By: #### ROBERT FELDER ####[facility] [address] [place] [address]Dr. Grace Abdul UR MICRO IND INDICATED Normal [facility] Comment on above: Performed By: #### ROBERT FELDER ####[facility] [address]fs[address] [place] [address]Dr. Grace Abdul Urobilinogen Qn (U) 0.2 {Ashley'U}/dL Normal 0.2 - 1. 0 The [facility] Comment on above: Performed By: #### ROBERT FELDER ####[facility] [address] [place], [place] [address]Dr. Grace Abdul LIPASEon 04-04-2022 Lipase [Catalytic activity/Vol] 115.0 U/L Normal 73.0-393.0 [facility] Comment on above: Performed By: #### C JOETB #### [facility] [address] [place] [address] Dr. Grace Abdul PROF 14(COMP METB)on 023 Albumin [Mass/Vol] 3.6 g/dL Normal 3.4-5.0 [facility] Comment on above: Performed By: #### Lakia DIAZTBH #### [facility] [address] [place] [address] Dr. Grace Abdul Albumin/Globulin [Mass ratio] 1.1 {ratio} Normal [facility] Comment on above: Performed By: #### C VDTBH #### [facility] [address] [place] [address] Dr. Grace Abdul ALP [Catalytic activity/Vol] 74 U/L Normal 46-116 The [facility] Comment on above: Performed By: #### C VDTBH #### [facility] [address] [place] [address] Dr. Grace Abdul ALT [Catalytic activity/Vol] 23 U/L Normal 14-59 [facility] Comment on above: Performed By: #### C VDTBH #### [facility] [address] [place] [address] [address] Grace Abdul Anion gap [Moles/Vol] 12.1 mmol/L Normal [facility] Comment on above: Performed By: #### C VDTBH #### [facility] [address] [place] [address] [address] Grace Abdul AST [Catalytic activity/Vol] 21 U/L Normal 15-37 [facility] Comment on above: Performed By: #### C VDTBH #### [facility] [address] [place] [address] [address] Grace Abdul Bilirubin [Mass/Vol] 0.2 mg/dL Normal 0.2-1.0 [facility] Comment on above: Performed By: #### C VDTBH #### [facility] [address] [place] [address] Dr. Grace Abdul Calcium [Mass/Vol] 9.3 mg/dL Normal 8.5-10.1 [facility] Comment on above: Performed By: #### C VDTBH #### [facility] [address] [place] [address] Dr. Grace Abdul Chloride [Moles/Vol] 99 mmol/L Normal 98-107 [facility] Comment on above: Performed By: #### C VDTBH #### [facility] [address] [place] [address] Dr. Grace Abdul CO2 [Moles/Vol] 31.2 mmol/L Normal 21.0-32.0 [facility] Comment on above: Performed By: #### C VDTBH #### [facility] [address] [place] [address] Dr. Grace Abdul Creatinine [Mass/Vol] 1.22 mg/dL Critically high 0.55-1.02 [facility] Comment on above: Performed By: #### C VDTBH #### [facility] [address] [place] [address] [address] Grace Abdul EGFR-AF URUGUAYAN 51 mL/min/1.73m2 Critically low >=60 The [facility] Comment on above: Performed By: #### C VDTBH #### [facility] [address] [place] [address] [address] Grace Abdul EGFR-NON AF URUGUAYAN 42 mL/min/1.73m2 Critically low >=60 [facility] Comment on above: Performed By: #### C VDTBH #### [facility] [address] [place] [address] [address] Grace Abdul Globulin (S) [Mass/Vol] 3.3 g/dL Normal [facility] Comment on above: Performed By: #### C VDTBH #### [facility] [address] [place] [address] [address] Grace Abdul Glucose [Mass/Vol] 115 mg/dL Critically high 74-106 [facility] Comment on above: Performed By: #### C VDTBH #### [facility] [address] [place] [address] Dr. Grace Abdul Potassium [Moles/Vol] 3.3 mmol/L Critically low 3.5-5.1 [facility] Comment on above: Performed By: #### C VDTBH #### [facility] [address] [place] [address] [address] Grace Abdul Protein [Mass/Vol] 6.9 g/dL Normal 6.4-8.2 [facility] Comment on above: Performed By: #### C VDTBH #### [facility] [address] [place] [address] [address] Grace Abdul Sodium [Moles/Vol] 139 mmol/L Normal 136-145 The [facility] Comment on above: Performed By: #### C VDTBH #### [facility] [address] [place] [address] [address] Grace Abdul Urea nitrogen [Mass/Vol] 23.0 mg/dL Critically high 7.0-18.0 [facility] Comment on above: Performed By: #### C VDTBH #### [facility] [address] [place] [address] [address] Grace Abdul Urea nitrogen/Creatinine [Mass ratio] 18.9 mg/mg Normal [facility] Comment on above: Performed By: #### C VDTBH #### [facility] [address] [place] [address] [address] Grace Abdul URINE MICROSCOPIC ONLYon BACTERIA NONE SEEN Normal NONE SEEN The [facility] Comment on above: Performed By: #### Anthony ELLISON UMICRO ####[facility] [address] [place] [address]Dr. Grace Abdul Bacteria identified Cx Nom (U) NOT INDICATED Normal The [facility] Comment on above: Performed By: #### Anthony ELLISON UMICRO ####[facility] [address] [place] [address]Dr. Grace Abdul CAST NONE SEEN Normal NONE SEEN The [facility] Comment on above: Performed By: #### Anthony ELLISON UMICRO ####[facility] [address] [place] [address]Dr. Grace Abdul Crystals LM Nom (Urine sed) NONE SEEN Normal NONE SEEN The [facility] Comment on above: Performed By: #### Anthony ELLISON UMICRO ####[facility] [address]pskyky[address] [place] [address]Dr. Grace Abdul Epithelial cells LM Ql (Urine sed) RARE Normal NONE SEEN /RARE The [facility] Comment on above: Performed By: #### Anthony ELLISON UMICRO ####[facility] [address]vuquahy[address] [place] [address]Dr. Grace Abdul MUCOUS NONE SEEN Normal NONE SEEN The [facility] Comment on above: Performed By: #### Anthony ELLISON UMICRO ####[facility] Hndqnwvhqu[address] [place] [address]Dr. Grace Abdul RBC 0-2 Normal 0-2 The [facility] Comment on above: Performed By: #### GINA FELDERRO ####[facility] Vftvjkpy[address] [place] [address]Dr. Grace Abdul WBC 0-2 Abnormal NONE SEEN The [facility] Comment on above: Performed By: #### GINA FELDERRO ####[facility] [address] [place], [place] [address]DrLisette Abdul BNPon 12-11-2021 Natriuretic peptide B (Bld) [Mass/Vol] 665.0 pg/mL Normal <=1,800.0 The [facility] Comment on above: Performed By: #### B MP #### [facility] Laboratory [address] [place], [place] [address] Dr. Grace Abdul CBC AUTO DIFFon 12-11-2021 BASO # 0.0 103/ul Normal 0.0-0.1 The [facility] Comment on above: Performed By: #### C BC ####[facility] [address] [place] [address]DrLisette Abdul Basophils/100 WBC (Bld) 0.5 % Normal 0.2-2.0 The [facility] Comment on above: Performed By: #### C BC ####[facility] [address]ilyfme[address] [place] [address]DrLisette Abdul EO # 0.1 103/ul Normal 0.0-0.7 The [facility] Comment on above: Performed By: #### C BC ####[facility] Eweknkovpv[address] [place] [address]Dr. Grace Abdul Eosinophils/100 WBC (Bld) 1.9 % Normal 0.9-7.0 The [facility] Comment on above: Performed By: #### C BC ####[facility] Jcfnkkzjaa7[address] [place] [address]DrLisette Abdul Erythrocyte distribution width (RBC) [Ratio] 13.4 % Normal 11.0-15.0 The [facility] Comment on above: Performed By: #### C BC ####[facility] Nsqmvonbdf[address] [place] [address]DrLisette Abdul Hematocrit (Bld) [Volume fraction] 36.2 % Normal 36.0-48.0 The [facility] Comment on above: Performed By: #### C BC ####[facility] Oflpfhbcyn[address] [place] [address]DrLisette Abdul Hemoglobin (Bld) [Mass/Vol] 11.9 g/dL Critically low 12.0-16.0 The [facility] Comment on above: Performed By: #### C BC ####[facility] [address]qglgphze[address] [place] [address]Dr. Grace Abdul IG # 0.01 10e3/ul Normal 0.00-0.03 [facility] Comment on above: Performed By: #### C BC ####[facility] Afdcbkrbkl[address] [place] [address]Dr. Grace Abdul IG % 0.2 % Normal 0.0-0.5 [facility] Comment on above: Performed By: #### C BC ####[facility] Aexxmbvqzl7[address] [place] [address]Dr. Grace Abdul LYMPH # 0.5 103/ul Critically low 1.2-3.8 [facility] Comment on above: Performed By: #### C BC ####[facility] Bfzelkpqqw350[address] [place] [address]DrLisette Abdul Lymphocytes/100 WBC (Bld) 11.5 % Critically low 20.5-60.0 [facility] Comment on above: Performed By: #### C BC ####[facility] [address]oy[address]vb[address] [place] [address]DrLisette Abdul MANUAL DIFF REQ NO Normal [facility] Comment on above: Performed By: #### C BC ####[facility] Lcdcxcgqtq[address] [place] [address]Dr. Grace Abdul MCH (RBC) [Entitic mass] 31.6 pg Normal 26.7-34.0 [facility] Comment on above: Performed By: #### C BC ####[facility] Pwjmnsbett[address] [place] [address]Dr. Grace Abdul MCHC (RBC) [Mass/Vol] 32.9 g/dL Normal 29.9-35.2 The [facility] Comment on above: Performed By: #### C BC ####[facility] Kprtfzuiax[address] [place] [address]Dr. Grace Abdul MCV (RBC) [Entitic vol] 96.0 fL Normal 81.0-99.0 [facility] Comment on above: Performed By: #### C BC ####[facility] [address]hgkr[address] [place] [id number]. Grace Abdul MONO # 0.6 103/ul Normal 0.3-0.8 The [facility] Comment on above: Performed By: #### C BC ####[facility] Nbfixxasal50[address] [place] [address]Dr. Grace Abdul Monocytes/100 WBC (Bld) 14.4 % Critically high 1.7-12.0 [facility] Comment on above: Performed By: #### C BC ####[facility] Fsfpwyvtnl28[address] [place] [address]Dr. Grace Abdul NEUT # 3.0 103/ul Normal 1.4-6.5 The [facility] Comment on above: Performed By: #### C BC ####[facility] Zezul[address]qz[address] [place] [address]Dr. Grace Abdul Neutrophils/100 WBC (Bld) 71.5 % Normal 43.0-75.0 The [facility] Comment on above: Performed By: #### C BC ####[facility] Qsfrzqcqhi44[address] [place] [id number]. Grace Abdul Platelet mean volume (Bld) [Entitic vol] 9.2 fL Critically low 9.5-13.5 [facility] Comment on above: Performed By: #### C BC ####[facility] [address]ztwjtbzx[address] [place] [id number]. Grace Abdul PLT 290 103/ul Normal 150-450 The [facility] Comment on above: Performed By: #### C BC ####[facility] Djmuouazvs[address] [place] [id number]. Grace Abdul RBC 3.77 106/ul Critically low 4.20-5.40 The [facility] Comment on above: Performed By: #### C BC ####[facility] Ougfpnqkmf27[address] [place] [id number]. Grace Abdul WBC 4.2 103/ul Normal 4.0-11.0 The [facility] Comment on above: Performed By: #### C BC ####[facility] Kzaqvrxbje[address] [place] [address]DrLisette Abdul FREE THYROXINE INDEX T7on FTI 2.63 Normal 1.30-4.50 [facility] Comment on above: Performed By: #### B MP #### [facility] [address] [place] [address] [address] Grace Abdul T3U 35.0 % Normal 30.0-39.0 [facility] Comment on above: Performed By: #### B MP #### [facility] [address] [place] [address] [address] Grace Abdul T4 [Mass/Vol] 7.50 ug/dL Normal 4.80-13.90 [facility] Comment on above: Performed By: #### B MP #### [facility] [address] [place] [address] [address] Grace Abdul GLYCOHEMOGLOBIN A1Con 2021 ADA RECOMMENDATION SEE BELOW Normal [facility] Comment on above: Result Comment: ADA RECOMMENDED LIMIT 4.0 - 6.0 ADA THERAPEUTIC TARGET < 7.0 ACTION SUGGESTED > 7.0 Performed By: #### A 1C ####[facility] [address] [place], [place] [address]DrLisette Abdul Glucose [Mass/Vol] 111 mg/dL Normal The [facility] Comment on above: Performed By: #### A 1C ####[facility] Enbdbshkgc[address] [place] [address]DrLisette Abdul HbA1c (Bld) [Mass fraction] 5.5 % Normal 4.5-6.2 [facility] Comment on above: Performed By: #### A 1C ####[facility] Yxlckzwdgd24[address] [place] [address]DrLisette Abdul IRONon 12-11-2021 Iron [Mass/Vol] 50.0 ug/dL Normal 50.0-170.0 The [facility] Comment on above: Performed By: #### I KASANDRA WEBSTER, VITB12 ####[facility] [address] [place] [address]Dr. Grace Abdul LIPID PROFILEon 12-11-2021 CHOL-HDL RATIO NORM SEE BELOW Normal [facility] Comment on above: Result Comment: 3.3 - 4.4 LOW RISK 4.4 - 7.1 AVERAGE RISK 7.1 - 11.0 MODERATE RISK >11.0 HIGH RISK Performed By: #### B MP #### [facility] [address] [place] [address] [address] Grace Abdul Cholesterol [Mass/Vol] 182 mg/dL Normal <=200 [facility] Comment on above: Performed By: #### B MP #### [facility] [address] [place] [address] [address] Grace Abdul Cholesterol in HDL [Mass/Vol] 60 mg/dL Normal 40-60 [facility] Comment on above: Performed By: #### B MP #### [facility] [address] [place] [address] [address] Grace Abdul Cholesterol in LDL [Mass/Vol] 101.2 mg/dL Normal [facility] Comment on above: Performed By: #### B MP #### [facility] [address] [place] [address] [address] Grace Abdul Cholesterol.total/Ch olesterol in HDL [Mass ratio] 3.0 {ratio} Normal [facility] Comment on above: Performed By: #### B MP #### [facility] [address] [place] [address] [address] Grace Abdul HDL NORMAL > or = 60 mg/dl - LO W CARDIOVASCULAR RISK <40 mg/dl - HIGH CARDIOVASCULAR RISK Normal [facility] Comment on above: Performed By: #### B MP #### [facility] [address] [place] [address] [address] Grace Abdul LDL CALC NORMAL SEE BELOW Normal [facility] Comment on above: Result Comment: <100 mg/dl OPTIMAL 100 - 129 mg/dl NEAR OR ABOVE OPTIMAL 130 - 159 mg/dl BORDERLINE HIGH 160 - 189 mg/dl HIGH >190 mg/dl VERY HIGH Performed By: #### B MP #### [facility] [address] [place] [address] [address] Grace Abdul Triglyceride [Mass/Vol] 104 mg/dL Normal <=150 [facility] Comment on above: Performed By: #### B MP #### [facility] [address] [place] [address] Dr. Grace Abdul VLDL CALC 20.8 mg/dL Normal [facility] Comment on above: Performed By: #### B MP #### [facility] [address] [place] [address] Dr. Grace Abdul PROF 14(COMP METB)on 022 Albumin [Mass/Vol] 3.5 g/dL Normal 3.4-5.0 [facility] Comment on above: Performed By: #### B MP #### [facility] [address] [place] [address] Dr. Grace Abdul Albumin/Globulin [Mass ratio] 1.0 {ratio} Normal [facility] Comment on above: Performed By: #### B MP #### [facility] [address] [place] [address] Dr. Grace Abdul ALP [Catalytic activity/Vol] 55 U/L Normal 46-116 [facility] Comment on above: Performed By: #### B MP #### [facility] [address] [place] [address] Dr. Grace Abdul ALT [Catalytic activity/Vol] 21 U/L Normal 14-59 [facility] Comment on above: Performed By: #### B MP #### [facility] [address] [place] [address] Dr. Grace Abdul Anion gap [Moles/Vol] 9.3 mmol/L Normal [facility] Comment on above: Performed By: #### B MP #### [facility] [address] [place] [address] Dr. Grace Abdul AST [Catalytic activity/Vol] 21 U/L Normal 15-37 [facility] Comment on above: Performed By: #### B MP #### [facility] [address] [place] [address] Dr. Grace Abdul Bilirubin [Mass/Vol] 0.3 mg/dL Normal 0.2-1.0 [facility] Comment on above: Performed By: #### B MP #### [facility] [address] [place] [address] [address] Grace Abdul Calcium [Mass/Vol] 9.5 mg/dL Normal 8.5-10.1 The [facility] Comment on above: Performed By: #### B MP #### [facility] [address] [place] [address] [address] Grace Abdul Chloride [Moles/Vol] 102 mmol/L Normal 98-107 [facility] Comment on above: Performed By: #### B MP #### [facility] [address] [place] [address] [address] Grace Abdul CO2 [Moles/Vol] 28.5 mmol/L Normal 21.0-32.0 [facility] Comment on above: Performed By: #### B MP #### [facility] [address] [place] [address] [address] Grace Abdul Creatinine [Mass/Vol] 1.04 mg/dL Critically high 0.55-1.02 [facility] Comment on above: Performed By: #### B MP #### [facility] [address] [place] [address] [address] Grace Abdul EGFR-AF URUGUAYAN >60 Normal >=60 [facility] Comment on above: Performed By: #### B MP #### [facility] [address] [place] [address] [address] Grace Abdul EGFR-NON AF URUGUAYAN 51 mL/min/1.73m2 Critically low >=60 The [facility] Comment on above: Performed By: #### B MP #### [facility] [address] [place] [address] [address] Grace Abdul Globulin (S) [Mass/Vol] 3.5 g/dL Normal [facility] Comment on above: Performed By: #### B MP #### [facility] [address] [place] [address] [address] Grace Abdul Glucose [Mass/Vol] 102 mg/dL Normal 74-106 The [facility] Comment on above: Performed By: #### B MP #### [facility] [address] [place] [address] [address] Grace Abdul Potassium [Moles/Vol] 3.8 mmol/L Normal 3.5-5.1 [facility] Comment on above: Performed By: #### B MP #### [facility] [address] [place] [address] [address] Grace Abdul Protein [Mass/Vol] 7.0 g/dL Normal 6.4-8.2 [facility] Comment on above: Performed By: #### B MP #### [facility] [address] [place] [address] [address] Grace Abdul Sodium [Moles/Vol] 136 mmol/L Normal 136-145 [facility] Comment on above: Performed By: #### B MP #### [facility] [address] [place] [address] [address] Grace Abdul Urea nitrogen [Mass/Vol] 20.0 mg/dL Critically high 7.0-18.0 [facility] Comment on above: Performed By: #### B MP #### [facility] [address] [place] [address] [address] Grace Abdul Urea nitrogen/Creatinine [Mass ratio] 19.2 mg/mg Normal [facility] Comment on above: Performed By: #### B MP #### [facility] [address] [place] [address] [address] Grace Abdul TSHon 12-11-2021 TSH 0.247 uIU/mL Critically low 0.358-3.740 [facility] Comment on above: Performed By: #### B MP #### [facility] [address] [place] [address] [address] Grace Abdul VITAMIN B12on 12-11-2021 Cobalamin (Vitamin B12) [Mass/Vol] 762.0 pg/mL Normal 193.0-986.0 [facility] Comment on above: Performed By: #### I DARIN, VITAD, VITB12 ####[facility] [address] [place] [address]Dr. Grace Abdul VITAMIN D 25 OHon 12-11-2021 VIT D 25-OH 54.9 ng/mL Normal The [facility] Comment on above: Performed By: #### I DARIN VITAD, VITB12 ####[facility] [address] [place], [place] [address]Td. Grace Abdul VIT D RANGES SEE BELOW Normal The [facility] Comment on above: Result Comment: <20 ng/mL Vit D deficient 20 - <30 ng/mL Vit D insufficient 30 - 100 ng/mL Vit D sufficient >100 ng/mL Potential Toxicity Performed By: #### I DARIN VITAD, VITB12 ####[facility] [address] [place], [place] [address]Zf. Grace Franko MG MAMM SCREEN 3D CLEMENCIA CADon 11-25-2021 MG MAMM SCREEN 3D CLEMENCIA CAD Patient: ALEXA DELGADO Exam Date: 11/25/2021 : 1940 Gender:F Ordering : DR GALINA ROGERS . Admission #: [id number] Family : DR ELOISA MORALES Order #: [id number] CLICK HERE TO VIEW EXAM RADIOLOGY REPORT [...] Treatments None Family Cancers None LOCATION: The [facility] BREAST COMPOSITION: Scattered areas fibroglandular [...] MD on 11/25/2021 at 14:14 Normal The [facility] CULTURE URINEon 11-24-2021 CULTURE URINE Culture Observations : LIGHT GROWTH OF MIXED GENITAL ALANIS. NO POTENTIAL PATHOGENS SEEN. Normal The [facility] Comment on above: Performed By: #### U RCX ####[facility] [address] [place] [address]Dr. Grace Abdul GI PANEL (PCR)on 11-24-2021 Adenovirus F 40/41 Not detected Normal NOT DETECTED [facility] Comment on above: Performed By: #### C BC #### [facility] [address] [place] [address] Dr. Grace Abdul Astrovirus Not detected Normal NOT DETECTED The [facility] Comment on above: Performed By: #### C BC #### [facility] [address] [place] [address] Dr. Grace Dorman. Diff toxin A/B Not detected Normal NOT DETECTED The [facility] Comment on above: Performed By: #### C BC #### [facility] [address] [place] [address] Dr. Grace Abdul Campylobacter Not detected Normal NOT DETECTED The [facility] Comment on above: Performed By: #### C BC #### [facility] [address] [place] [address] Dr. Grace Abdul Cryptosporidium Not detected Normal NOT DETECTED The [facility] Comment on above: Performed By: #### C BC #### [facility] [address] [place] [address] Dr. Grace Abdul Cyclos. Cayetanensis Not detected Normal NOT DETECTED The [facility] Comment on above: Performed By: #### C BC #### [facility] [address] [place] [address] Dr. Grace Abdul E. Coli O157 Not Applicable Normal Not Applicable The [facility] Comment on above: Performed By: #### C BC #### [facility] [address] [place] [address] Dr. Grace Abdul E. histolytica Not detected Normal NOT DETECTED The [facility] Comment on above: Performed By: #### C BC #### [facility] [address] [place] [address] Dr. rGace Abdul EAEC Not detected Normal NOT DETECTED The [facility] Comment on above: Performed By: #### C BC #### [facility] [address] [place] [address] Dr. Grace Abdul EIEC Not detected Normal NOT DETECTED The [facility] Comment on above: Performed By: #### C BC #### [facility] [address] [place] [address] [address] Grace Abdul EPEC Not detected Normal NOT DETECTED The [facility] Comment on above: Performed By: #### C BC #### [facility] [address] [place] [address] Dr. Grace Abdul ETEC Not detected Normal NOT DETECTED The [facility] Comment on above: Performed By: #### C BC #### [facility] [address] [place] [address] Dr. Grace Smithlivanda Not detected Normal NOT DETECTED The [facility] Comment on above: Performed By: #### C BC #### [facility] [address] [place] [address] Dr. Grace MCKEON CONTROLS PASSED Normal [facility] Comment on above: Performed By: #### C BC #### [facility] [address] [place] [address] Dr. Grace DIETRICH HEADER GI PANEL BACTERIA Normal T [facility] Comment on above: Performed By: #### C BC #### [facility] [address] [place] [address] Dr. Grace SANDERS ECOLI GI PANEL DIARRHEAGEN IC E.COLI / SHIGELLA Normal [facility] Comment on above: Performed By: #### C BC #### [facility] [address] [place] [address] Dr. Grace SANDERS INFO SEE BELOW [facility] Comment on above: Result Comment: EAEC - Enteroaggregative E. Coli EPEC- Enteropathogenic E. Coli ETEC- Enterotoxigenic E. Coli lt/st STEC- Shigella-like toxin-producing E. Coli stx1/stx2 EIEC- Shigella/Enteroinvasive E. Coli Performed By: #### C BC #### [facility] [address] [place], [place] [id number] Dr. Grace SANDERS PARASITES GI PANEL PARASITES Normal The [facility] Comment on above: Performed By: #### C BC #### [facility] [address] [place] [address] Dr. Grace SANDERS VIRUS GI PANEL VIRUSES Normal The [facility] Comment on above: Performed By: #### C BC #### [facility] [address] [place] [address] Dr. Grace Abdul Norovirus GI/GII Not detected Normal NOT DETECTED The [facility] Comment on above: Performed By: #### C BC #### [facility] [address] [place] [address] Dr. Grace Abdul P. Shigelloides Not detected Normal NOT DETECTED The [facility] Comment on above: Performed By: #### C BC #### [facility] [address] [place] [address] Dr. Grace Abdul Rotavirus A Not detected Normal NOT DETECTED The [facility] Comment on above: Performed By: #### C BC #### [facility] [address] [place] [address] Dr. Grace Abdul Salmonella Not detected Normal NOT DETECTED The [facility] Comment on above: Performed By: #### C BC #### [facility] [address] [place] [address] Dr. Grace Abdul Sapovirus Not detected Normal NOT DETECTED The [facility] Comment on above: Performed By: #### C BC #### [facility] [address] [place] [address] Dr. Grace Abdul STEC Not detected Normal NOT DETECTED The [facility] Comment on above: Performed By: #### C BC #### [facility] [address] [place] [address] Dr. Grace Abdul Vibrio Not detected Normal NOT DETECTED The [facility] Comment on above: Performed By: #### C BC #### [facility] [address] [place] [address] Dr. Grace Abdul Vibrio Cholera Not detected Normal NOT DETECTED The [facility] Comment on above: Performed By: #### C BC #### [facility] [address] [place] [address] [address] Grace Blue Enterocolitica Not detected Normal NOT DETECTED The [facility] Comment on above: Performed By: #### C BC #### [facility] [address] [place] [address] [address] Grace Abdul UA RANDOM W/MICROSCOPICon BACTERIA NONE SEEN Normal NONE SEEN The [facility] Comment on above: Performed By: #### U AMIC ####[facility] [address] [place] [address]Dr. Grace Abdul Bilirubin Ql (U) Negative Normal NEGATIVE The [facility] Comment on above: Performed By: #### U AMIC ####[facility] [address] [place] [address]Dr. Grace Abdul CAST NONE SEEN Normal NONE SEEN The [facility] Comment on above: Performed By: #### U AMIC ####[facility] [address] [place] [address]Dr. Grace Abdul Clarity (U) CLEAR Normal CLEAR The [facility] Comment on above: Performed By: #### U AMIC ####[facility] [address] [place] [address]Dr. Grace Abdul Color (U) LT. YELLOW Normal YELLOW The [facility] Comment on above: Performed By: #### U AMIC ####[facility] [address] [place] [address]Dr. Grace Abdul Crystals LM Nom (Urine sed) NONE SEEN Normal NONE SEEN The [facility] Comment on above: Performed By: #### U AMIC ####[facility] [address] [place] [address]Dr. Grace Abdul Epithelial cells LM Ql (Urine sed) FEW Abnormal NONE SEEN /RARE The [facility] Comment on above: Performed By: #### U AMIC ####[facility] [address] [place] [address]Dr. Grace Abdul Glucose Ql (U) Negative Normal NEGATIVE The [facility] Comment on above: Performed By: #### U AMIC ####[facility] [address] [place] [address]Dr. Grace Abdul Hemoglobin Ql (U) TRACE-INTACT Abnormal NEGATIVE [facility] Comment on above: Performed By: #### U AMIC ####[facility] [address] [place] [address]Dr. Grace Abdul Ketones Ql (U) Negative Normal NEGATIVE The [facility] Comment on above: Performed By: #### U AMIC ####[facility] [address] [place], [place] [address]Dr. Grace Abdul LEUKOCYTES Negative Normal NEGATIVE The [facility] Comment on above: Performed By: #### U AMIC ####[facility] [address] [place], [place] [address]Dr. Grace Abdul MUCOUS NONE SEEN Normal NONE SEEN [facility] Comment on above: Performed By: #### U AMIC ####[facility] [address] [place], [place] [address]Dr. Grace Franko Nitrite Ql (U) Negative Normal NEGATIVE [facility] Comment on above: Performed By: #### U AMIC ####[facility] [address] [place], [place] [address]Dr. Grace Abdul pH (U) 7.5 [pH] Normal 5-9 [facility] Comment on above: Performed By: #### U AMIC ####[facility] [address] [place], [place] [address]Dr. Grace Abdul RBC 0-2 Normal 0-2 The [facility] Comment on above: Performed By: #### U AMIC ####[facility] Olp[address] [place], [place] [address]Dr. Benitalee ann Abdul SPEC GRAVITY 1.010 Normal 1.005-<=1.025 The [facility] Comment on above: Performed By: #### U AMIC ####[facility] Ak[address] [place], [place] [address]Dr. Grace Abdul UA PROTEIN Negative Normal NEGATIVE/ TRACE The [facility] Comment on above: Performed By: #### U AMIC ####[facility] [address] [place] [id number] Grace Abdul Urobilinogen Qn (U) 0.2 {Ashley'U}/dL Normal 0.2 - 1. 0 The [facility] Comment on above: Performed By: #### U AMIC ####[facility] [address] [place] [id number] Abdul WBC NONE SEEN Normal NONE SEEN The [facility] Comment on above: Performed By: #### U AMIC ####[facility] [address] [place] [id number]. Grace Abdul CBC AUTO DIFFon 11-23-2021 BASO # 0.0 103/ul Normal 0.0-0.1 The [facility] Comment on above: Performed By: #### C BC #### [facility] [address] [address] [address] Grace Abdul Basophils/100 WBC (Bld) 0.4 % Normal 0.2-2.0 The [facility] Comment on above: Performed By: #### C BC #### [facility] [address] [address] [address] Grace Abdul EO # 0.1 103/ul Normal 0.0-0.7 The [facility] Comment on above: Performed By: #### C BC #### [facility] [address] [address] [address] Grace Abdul Eosinophils/100 WBC (Bld) 1.5 % Normal 0.9-7.0 The [facility] Comment on above: Performed By: #### C BC #### [facility] [address] [address] [address] Grace Abdul Erythrocyte distribution width (RBC) [Ratio] 13.2 % Normal 11.0-15.0 The [facility] Comment on above: Performed By: #### C BC #### [facility] [address] [address] [address] Grace Abdul Hematocrit (Bld) [Volume fraction] 31.9 % Critically low 36.0-48.0 The [facility] Comment on above: Performed By: #### C BC #### [facility] [address] [address] [address] Grace Abdul Hemoglobin (Bld) [Mass/Vol] 10.5 g/dL Critically low 12.0-16.0 [facility] Comment on above: Performed By: #### C BC #### [facility] [address] [address] [address] Grace Abdul IG # 0.01 10e3/ul Normal 0.00-0.03 [facility] Comment on above: Performed By: #### C BC #### [facility] [address] [place] [address] Dr. Grace Abdul IG % 0.2 % Normal 0.0-0.5 [facility] Comment on above: Performed By: #### C BC #### [facility] [address] [place] [address] Dr. Grace Abdul LYMPH # 0.7 103/ul Critically low 1.2-3.8 The [facility] Comment on above: Performed By: #### C BC #### [facility] [address] [place] [address] Dr. Grace Abdul Lymphocytes/100 WBC (Bld) 14.8 % Critically low 20.5-60.0 [facility] Comment on above: Performed By: #### C BC #### [facility] [address] [place] [address] Dr. Grace Abdul MANUAL DIFF REQ NO Normal The [facility] Comment on above: Performed By: #### C BC #### [facility] [address] [place] [address] Dr. Grace Abdul MCH (RBC) [Entitic mass] 31.4 pg Normal 26.7-34.0 [facility] Comment on above: Performed By: #### C BC #### [facility] [address] [place] [address] Dr. Grace Abdul MCHC (RBC) [Mass/Vol] 32.9 g/dL Normal 29.9-35.2 [facility] Comment on above: Performed By: #### C BC #### [facility] [address] [place], [place] [id number] Dr. Grace Abdul MCV (RBC) [Entitic vol] 95.5 fL Normal 81.0-99.0 The [facility] Comment on above: Performed By: #### C BC #### [facility] [address] [place] [address] Dr. Grace Abdul MONO # 0.6 103/ul Normal 0.3-0.8 The [facility] Comment on above: Performed By: #### C BC #### [facility] [address] [place] [address] Dr. Grace Abdul Monocytes/100 WBC (Bld) 13.4 % Critically high 1.7-12.0 [facility] Comment on above: Performed By: #### C BC #### [facility] [address] [place] [address] Dr. Grace Abdul NEUT # 3.3 103/ul Normal 1.4-6.5 The [facility] Comment on above: Performed By: #### C BC #### [facility] [address] [place] [address] Dr. Grace Abdul Neutrophils/100 WBC (Bld) 69.7 % Normal 43.0-75.0 The [facility] Comment on above: Performed By: #### C BC #### [facility] [address] [place] [address] Dr. Grace Abdul Platelet mean volume (Bld) [Entitic vol] 9.1 fL Critically low 9.5-13.5 The [facility] Comment on above: Performed By: #### C BC #### [facility] [address] [place] [address] Dr. Grace Abdul PLT 335 103/ul Normal 150-450 The [facility] Comment on above: Performed By: #### C BC #### [facility] [address] [place] [address] Dr. Grace Abdul RBC 3.34 106/ul Critically low 4.20-5.40 The [facility] Comment on above: Performed By: #### C BC #### [facility] [address] [place] [address] Dr. Grace Abdul WBC 4.8 103/ul Normal 4.0-11.0 The [facility] Comment on above: Performed By: #### C BC #### [facility] [address] [place], [place] [address] Dr. Grace Abdul FREE THYROXINE INDEX T7on FTI 1.15 Critically low 1.30-4.50 The [facility] Comment on above: Performed By: #### T 7, CMP, TSH ####[facility] [address] [place] [id number] Abdul T3U 31.0 % Normal 30.0-39.0 The [facility] Comment on above: Performed By: #### T 7, CMP, TSH ####[facility] [address] [place] [id number] Abdul T4 [Mass/Vol] 3.70 ug/dL Critically low 4.80-13.90 The [facility] Comment on above: Performed By: #### T 7, CMP, TSH ####[facility] [address] [place] [id number] Abdul IRONon 11-23-2021 Iron [Mass/Vol] 52.0 ug/dL Normal 50.0-170.0 The [facility] Comment on above: Performed By: #### C VDTB #### [facility] [address] [place], [place] [address] Dr. Grace Abdul PROF 14(COMP METB)on 022 Albumin [Mass/Vol] 3.5 g/dL Normal 3.4-5.0 The [facility] Comment on above: Performed By: #### T 7, CMP, TSH ####[facility] [address] [place] [id number] Abdul Albumin/Globulin [Mass ratio] 1.1 {ratio} Normal The [facility] Comment on above: Performed By: #### T 7, CMP, TSH ####[facility] [address] [place] [id number] Abdul ALP [Catalytic activity/Vol] 69 U/L Normal 46-116 The [facility] Comment on above: Performed By: #### T 7, CMP, TSH ####[facility] [address] [place] [address]Dr. Grace Abdul ALT [Catalytic activity/Vol] 51 U/L Normal 14-59 [facility] Comment on above: Performed By: #### T 7, CMP, TSH ####[facility] Y[address] [place] [address]Dr. Grace Abdul Anion gap [Moles/Vol] 11.5 mmol/L Normal [facility] Comment on above: Performed By: #### T 7, CMP, TSH ####[facility] [address]ys[address] [place], [place] [address]Dr. Grace Abdul AST [Catalytic activity/Vol] 24 U/L Normal 15-37 [facility] Comment on above: Performed By: #### T 7, CMP, TSH ####[facility] Xnd[address] [place], [place] [address]Dr. Grace Abdul Bilirubin [Mass/Vol] 0.2 mg/dL Normal 0.2-1.0 [facility] Comment on above: Performed By: #### T 7, CMP, TSH ####[facility] [address] [place], [place] [address]Dr. Grace Abdul Calcium [Mass/Vol] 9.3 mg/dL Normal 8.5-10.1 [facility] Comment on above: Performed By: #### T 7, CMP, TSH ####[facility] Apedsx[address] [place], [place] [address]Dr. Grace Abdul Chloride [Moles/Vol] 98 mmol/L Normal 98-107 The [facility] Comment on above: Performed By: #### T 7, CMP, TSH ####[facility] [address] [place], [place] [address]Dr. Grace Abdul CO2 [Moles/Vol] 28.7 mmol/L Normal 21.0-32.0 The [facility] Comment on above: Performed By: #### T 7, CMP, TSH ####[facility] [address] [place], [place] [address]Dr. Grace Abdul Creatinine [Mass/Vol] 1.11 mg/dL Critically high 0.55-1.02 [facility] Comment on above: Performed By: #### T 7, LEONOR, TSH ####[facility] [address] [place] [address]Dr. Grace Abdul EGFR-AF URUGUAYAN 57 mL/min/1.73m2 Critically low >=60 [facility] Comment on above: Performed By: #### T 7, CMP, TSH ####[facility] [address] [place] [address]Dr. Grace Abdul EGFR-NON AF URUGUAYAN 47 mL/min/1.73m2 Critically low >=60 [facility] Comment on above: Performed By: #### Ainsley 7, LEONOR, TSH ####[facility] [address] [place], [place] [address]Dr. Benitalee ann Abdul Globulin (S) [Mass/Vol] 3.3 g/dL Normal [facility] Comment on above: Performed By: #### T 7, CMP, TSH ####[facility] F[address] [place], [place] [address]Dr. Grace Franko Glucose [Mass/Vol] 88 mg/dL Normal 74-106 [facility] Comment on above: Performed By: #### T 7, CMP, TSH ####[facility] [address] [place] [address]Dr. Benitalee ann Abdul Potassium [Moles/Vol] 4.2 mmol/L Normal 3.5-5.1 [facility] Comment on above: Performed By: #### T 7, CMP, TSH ####[facility] [address] [place] [address]Dr. Grace Abdul Protein [Mass/Vol] 6.8 g/dL Normal 6.4-8.2 The [facility] Comment on above: Performed By: #### T 7, CMP, TSH ####[facility] [address] [place] [address]Dr. Benitalee ann Abdul Sodium [Moles/Vol] 134 mmol/L Critically low 136-145 [facility] Comment on above: Performed By: #### T 7, CMP, TSH ####[facility] [address] [place] [address]DrLisette Abdul Urea nitrogen [Mass/Vol] 33.0 mg/dL Critically high 7.0-18.0 [facility] Comment on above: Performed By: #### T 7, CMP, TSH ####[facility] [address] [place] [address]DrLisette Abdul Urea nitrogen/Creatinine [Mass ratio] 29.7 mg/mg Normal The [facility] Comment on above: Performed By: #### T 7, CMP, TSH ####[facility] [address] [place] [address]DrLisette Abdul TSHon 11-23-2021 TSH 0.469 uIU/mL Normal 0.358-3.740 [facility] Comment on above: Performed By: #### T 7, CMP, TSH ####[facility] [address] [place] [address]DrLisette Abdul CBC AUTO DIFFon 11-17-2021 BASO # 0.0 103/ul Normal 0.0-0.1 [facility] Comment on above: Performed By: #### C VDTBH #### [facility] [address] [place] [address] Dr. Grace Abdul Basophils/100 WBC (Bld) 0.2 % Normal 0.2-2.0 [facility] Comment on above: Performed By: #### C VDTBH #### [facility] [address] [place] [address] Dr. Grace Abdul EO # 0.1 103/ul Normal 0.0-0.7 [facility] Comment on above: Performed By: #### C VDTBH #### [facility] [address] [place] [address] Dr. Grace Abdul Eosinophils/100 WBC (Bld) 0.9 % Normal 0.9-7.0 [facility] Comment on above: Performed By: #### C VDTBH #### [facility] [address] [place] [address] Dr. Grace Abdul Erythrocyte distribution width (RBC) [Ratio] 12.8 % Normal 11.0-15.0 [facility] Comment on above: Performed By: #### C VDTBH #### [facility] [address] [place] [address] Dr. Grace Abdul Hematocrit (Bld) [Volume fraction] 35.2 % Critically low 36.0-48.0 [facility] Comment on above: Performed By: #### C VDTBH #### [facility] [address] [place] [address] Dr. Grace Abdul Hemoglobin (Bld) [Mass/Vol] 12.1 g/dL Normal 12.0-16.0 [facility] Comment on above: Performed By: #### C VDTBH #### [facility] [address] [place] [address] Dr. Grace Abdul IG # 0.05 10e3/ul Critically high 0.00-0.03 [facility] Comment on above: Performed By: #### C VDTBH #### [facility] [address] [place] [address] Dr. Grace Abdul IG % 0.6 % Critically high 0.0-0.5 [facility] Comment on above: Performed By: #### C VDTBH #### [facility] [address] [place] [address] Dr. Grace Abdul LYMPH # 0.6 103/ul Critically low 1.2-3.8 The [facility] Comment on above: Performed By: #### C VDTBH #### [facility] [address] [place] [address] Dr. Grace Abdul Lymphocytes/100 WBC (Bld) 7.4 % Critically low 20.5-60.0 [facility] Comment on above: Performed By: #### C VDTBH #### [facility] [address] [place] [address] Dr. Grace Abdul MANUAL DIFF REQ NO Normal The [facility] Comment on above: Performed By: #### C VDTBH #### [facility] [address] [address] [address] Grace Abdul MCH (RBC) [Entitic mass] 31.5 pg Normal 26.7-34.0 The [facility] Comment on above: Performed By: #### C VDTBH #### [facility] [address] [place] [address] Dr. Grace Abdul MCHC (RBC) [Mass/Vol] 34.4 g/dL Normal 29.9-35.2 The [facility] Comment on above: Performed By: #### C VDTBH #### [facility] [address] [place] [address] Dr. Grace Abdul MCV (RBC) [Entitic vol] 91.7 fL Normal 81.0-99.0 The [facility] Comment on above: Performed By: #### C VDTBH #### [facility] [address] [place] [address] Dr. Grace Abdul MONO # 1.0 103/ul Critically high 0.3-0.8 [facility] Comment on above: Performed By: #### C VDTBH #### [facility] [address] [place] [address] Dr. Grace Abdul Monocytes/100 WBC (Bld) 12.1 % Critically high 1.7-12.0 [facility] Comment on above: Performed By: #### C VDTBH #### [facility] [address] [place] [address] Dr. Grace Abdul NEUT # 6.3 103/ul Normal 1.4-6.5 The [facility] Comment on above: Performed By: #### C VDTBH #### [facility] [address] [place] [address] Dr. Grace Abdul Neutrophils/100 WBC (Bld) 78.8 % Critically high 43.0-75.0 The [facility] Comment on above: Performed By: #### C VDTBH #### [facility] [address] [place] [address] Dr. Grace Abdul Platelet mean volume (Bld) [Entitic vol] 9.1 fL Critically low 9.5-13.5 The [facility] Comment on above: Performed By: #### C VDTBH #### [facility] [address] [place] [address] Dr. Grace Abdul PLT 281 103/ul Normal 150-450 [facility] Comment on above: Performed By: #### C VDTBH #### [facility] [address] [place] [address] Dr. Grace Abdul RBC 3.84 106/ul Critically low 4.20-5.40 [facility] Comment on above: Performed By: #### C VDTBH #### [facility] [address] [place] [address] Dr. Grace Abdul WBC 8.0 103/ul Normal 4.0-11.0 [facility] Comment on above: Performed By: #### C VDTBH #### [facility] [address] [place] [address] Dr. Grace Abdul MAGNESIUMon 11-17-2021 Magnesium [Mass/Vol] 1.9 mg/dL Normal 1.8-2.4 [facility] Comment on above: Performed By: #### C VDTBH #### [facility] [address] [place] [address] Dr. Grace Abdul PROF CHEM 8 (BAS METB)on Anion gap [Moles/Vol] 13.9 mmol/L Normal [facility] Comment on above: Performed By: #### C VDTBH #### [facility] [address] [place] [address] Dr. Grace Abdul Calcium [Mass/Vol] 8.7 mg/dL Normal 8.5-10.1 The [facility] Comment on above: Performed By: #### C VDTBH #### [facility] [address] [place] [address] Dr. Grace Abdul Chloride [Moles/Vol] 101 mmol/L Normal 98-107 The [facility] Comment on above: Performed By: #### C VDTBH #### [facility] [address] [place] [address] Dr. Grace Abdul CO2 [Moles/Vol] 24.3 mmol/L Normal 21.0-32.0 [facility] Comment on above: Performed By: #### C VDTBH #### [facility] [address] [place] [address] Dr. Grace Abdul Creatinine [Mass/Vol] 0.89 mg/dL Normal 0.55-1.02 [facility] Comment on above: Performed By: #### C VDTBH #### [facility] [address] [address] [address] Grace Abdul EGFR-AF URUGUAYAN >60 Normal >=60 [facility] Comment on above: Performed By: #### C VDTBH #### [facility] [address] [address] [address] Grace Abdul EGFR-NON AF URUGUAYAN >60 Normal >=60 [facility] Comment on above: Performed By: #### C VDTBH #### [facility] [address] [place] [address] Dr. Grace Abdul Glucose [Mass/Vol] 97 mg/dL Normal 74-106 [facility] Comment on above: Performed By: #### C VDTBH #### [facility] [address] [address] [address] Grace Abdul Potassium [Moles/Vol] 3.2 mmol/L Critically low 3.5-5.1 [facility] Comment on above: Performed By: #### C VDTBH #### [facility] [address] [place] [address] Dr. Grace Abdul Sodium [Moles/Vol] 136 mmol/L Normal 136-145 The [facility] Comment on above: Performed By: #### C VDTBH #### [facility] [address] [address] [address] Grace Abdul Urea nitrogen [Mass/Vol] 14.0 mg/dL Normal 7.0-18.0 [facility] Comment on above: Performed By: #### C VDTBH #### [facility] [address] [address] [address] Grace Abdul Urea nitrogen/Creatinine [Mass ratio] 15.7 mg/mg Normal [facility] Comment on above: Performed By: #### C VDTBH #### [facility] [address] [place] [address] Dr. Grace Abdul CBC AUTO DIFFon 11-16-2021 BASO # 0.0 103/ul Normal 0.0-0.1 [facility] Comment on above: Performed By: #### B MP #### [facility] [address] [place] [address] Dr. Grace Abdul Basophils/100 WBC (Bld) 0.2 % Normal 0.2-2.0 [facility] Comment on above: Performed By: #### B MP #### [facility] [address] [place] [address] Dr. Grace Abdul EO # 0.0 103/ul Normal 0.0-0.7 [facility] Comment on above: Performed By: #### B MP #### [facility] [address] [place] [address] Dr. Grace Abdul Eosinophils/100 WBC (Bld) 0.5 % Critically low 0.9-7.0 [facility] Comment on above: Performed By: #### B MP #### [facility] [address] [place] [address] Dr. Grace Abdul Erythrocyte distribution width (RBC) [Ratio] 12.4 % Normal 11.0-15.0 [facility] Comment on above: Performed By: #### B MP #### [facility] [address] [place] [address] Dr. Grace Abdul Hematocrit (Bld) [Volume fraction] 33.6 % Critically low 36.0-48.0 [facility] Comment on above: Performed By: #### B MP #### [facility] [address] [place] [address] Dr. Grace Abdul Hemoglobin (Bld) [Mass/Vol] 11.8 g/dL Critically low 12.0-16.0 [facility] Comment on above: Performed By: #### B MP #### [facility] [address] [place] [address] Dr. Grace Abdul IG # 0.04 10e3/ul Critically high 0.00-0.03 [facility] Comment on above: Performed By: #### B MP #### [facility] [address] [place] [address] Dr. Grace Abdul IG % 0.7 % Critically high 0.0-0.5 [facility] Comment on above: Performed By: #### B MP #### [facility] [address] [place] [address] Dr. Grace Abdul LYMPH # 0.7 103/ul Critically low 1.2-3.8 [facility] Comment on above: Performed By: #### B MP #### [facility] [address] [place] [address] Dr. Grace Abdul Lymphocytes/100 WBC (Bld) 11.1 % Critically low 20.5-60.0 [facility] Comment on above: Performed By: #### B MP #### [facility] [address] [place] [address] Dr. Grace Abdul MANUAL DIFF REQ NO Normal [facility] Comment on above: Performed By: #### B MP #### [facility] [address] [place] [address] Dr. Grace Abdul MCH (RBC) [Entitic mass] 31.5 pg Normal 26.7-34.0 [facility] Comment on above: Performed By: #### B MP #### [facility] [address] [place] [address] Dr. Grace Abdul MCHC (RBC) [Mass/Vol] 35.1 g/dL Normal 29.9-35.2 [facility] Comment on above: Performed By: #### B MP #### [facility] [address] [place] [address] Dr. Grace Abdul MCV (RBC) [Entitic vol] 89.6 fL Normal 81.0-99.0 [facility] Comment on above: Performed By: #### B MP #### [facility] [address] [place] [address] Dr. Grace Abdul MONO # 0.9 103/ul Critically high 0.3-0.8 [facility] Comment on above: Performed By: #### B MP #### [facility] [address] [address] [address] Grace Abdul Monocytes/100 WBC (Bld) 14.0 % Critically high 1.7-12.0 [facility] Comment on above: Performed By: #### B MP #### [facility] [address] [address] [address] Grace Abdul NEUT # 4.5 103/ul Normal 1.4-6.5 [facility] Comment on above: Performed By: #### B MP #### [facility] [address] [place] [address] Dr. Grace Abdul Neutrophils/100 WBC (Bld) 73.5 % Normal 43.0-75.0 [facility] Comment on above: Performed By: #### B MP #### [facility] [address] [place] [address] Dr. Grace Abdul Platelet mean volume (Bld) [Entitic vol] 9.3 fL Critically low 9.5-13.5 [facility] Comment on above: Performed By: #### B MP #### [facility] [address] [place] [address] Dr. Grace Abdul PLT 292 103/ul Normal 150-450 The [facility] Comment on above: Performed By: #### B MP #### [facility] [address] [place] [address] Dr. Grace Abdul RBC 3.75 106/ul Critically low 4.20-5.40 The [facility] Comment on above: Performed By: #### B MP #### [facility] [address] [place] [address] Dr. Grace Abdul WBC 6.1 103/ul Normal 4.0-11.0 The [facility] Comment on above: Performed By: #### B MP #### [facility] [address] [place] [address] Dr. Grace Abdul CULTURE URINEon 11-16-2021 CULTURE URINE Culture Observations : LIGHT GROWTH OF MIXED GENITAL ALANIS. NO POTENTIAL PATHOGENS SEEN. Normal The [facility] Comment on above: Performed By: #### U RCX ####[facility] [id number] [address] Grace HERNANDEZ URINE PROFILEon 2 Bilirubin Ql (U) Negative Normal NEGATIVE The [facility] Comment on above: Performed By: #### C VDTBH #### [facility] [address] [address] [address] Grace Abdul Clarity (U) CLEAR Normal CLEAR [facility] Comment on above: Performed By: #### C VDTBH #### [facility] [address] [address] [address] Grace Abdul Color (U) LT. YELLOW Normal YELLOW [facility] Comment on above: Performed By: #### C VDTBH #### [facility] [address] [place] [address] Dr. Grace HIGGINS A micrscopic examination will be performed if indicated. Normal The [facility] Comment on above: Performed By: #### C VDTBH #### [facility] [address] [place] [address] Dr. Grace Abdul Glucose Ql (U) Negative Normal NEGATIVE The [facility] Comment on above: Performed By: #### C VDTBH #### [facility] [address] [place] [address] Dr. Grace Abdul Hemoglobin Ql (U) SMALL Abnormal NEGATIVE The [facility] Comment on above: Performed By: #### C VDTBH #### [facility] [address] [address] [address] Grace Abdul Ketones Ql (U) 40 mg/dl Abnormal NEGATIVE The [facility] Comment on above: Performed By: #### C VDTBH #### [facility] [address] [place] [address] Dr. Grace Abdul LEUKOCYTES SMALL Abnormal NEGATIVE [facility] Comment on above: Performed By: #### C VDTBH #### [facility] [address] [address] [address] Grace Abdul Nitrite Ql (U) Negative Normal NEGATIVE The [facility] Comment on above: Performed By: #### C VDTBH #### [facility] [address] [place] [address] Dr. Grace Abdul pH (U) 7.0 [pH] Normal 5-9 [facility] Comment on above: Performed By: #### C VDTBH #### [facility] [address] [place] [address] Dr. Grace Abdul SPEC GRAVITY 1.010 Normal 1.005-<=1.025 [facility] Comment on above: Performed By: #### C VDTBH #### [facility] [address] [place] [address] Dr. Grace Abdul UA PROTEIN Negative Normal NEGATIVE/ TRACE [facility] Comment on above: Performed By: #### C VDTBH #### [facility] [address] [place] [address] Dr. Grace Abdul UR MICRO IND INDICATED Normal [facility] Comment on above: Performed By: #### C VDTBH #### [facility] [address] [place] [address] Dr. Grace Abdul Urobilinogen Qn (U) 0.2 {Ashley'U}/dL Normal 0.2 - 1. 0 [facility] Comment on above: Performed By: #### C VDTBH #### [facility] [address] [place] [address] Dr. Grace Abdul MAGNESIUMon 11-16-2021 Magnesium [Mass/Vol] 1.8 mg/dL Normal 1.8-2.4 [facility] Comment on above: Performed By: #### C VDTBH #### [facility] [address] [place] [address] Dr. Grace Abdul PROF CHEM 8 (BAS METB)on Anion gap [Moles/Vol] 12.7 mmol/L Normal [facility] Comment on above: Performed By: #### B MP #### [facility] [address] [place] [address] Dr. Grace Abdul Calcium [Mass/Vol] 8.3 mg/dL Critically low 8.5-10.1 Th e [facility] Comment on above: Performed By: #### B MP #### [facility] [address] [address] [address] Grace Abdul CO2 [Moles/Vol] 24.4 mmol/L Normal 21.0-32.0 [facility] Comment on above: Performed By: #### B MP #### [facility] [address] [address] [address] Grace Abdul Creatinine [Mass/Vol] 1.16 mg/dL Critically high 0.55-1.02 [facility] Comment on above: Performed By: #### B MP #### [facility] [address] [address] [address] Grace Abdul EGFR-AF URUGUAYAN 54 mL/min/1.73m2 Critically low >=60 [facility] Comment on above: Performed By: #### B MP #### [facility] [address] [address] [address] Grace Abdul EGFR-NON AF URUGUAYAN 45 mL/min/1.73m2 Critically low >=60 [facility] Comment on above: Performed By: #### B MP #### [facility] [address] [address] [address] Grace Abdul Glucose [Mass/Vol] 116 mg/dL Critically high 74-106 T [facility] Comment on above: Performed By: #### B MP #### [facility] [address] [address] [address] Grace Abdul Urea nitrogen [Mass/Vol] 20.0 mg/dL Critically high 7.0-18.0 [facility] Comment on above: Performed By: #### B MP #### [facility] [address] [address] [address] Grace Abdul Urea nitrogen/Creatinine [Mass ratio] 17.2 mg/mg Normal [facility] Comment on above: Performed By: #### B MP #### [facility] [address] [address] [address] Grace Abdul Anion gap [Moles/Vol] 10.0 mmol/L Normal [facility] Comment on above: Performed By: #### B MP #### [facility] [address] [address] [address] Grace Abdul Calcium [Mass/Vol] 8.8 mg/dL Normal 8.5-10.1 [facility] Comment on above: Performed By: #### B MP #### [facility] [address] [address] [address] Grace Abdul Chloride [Moles/Vol] 96 mmol/L Critically low 98-107 [facility] Comment on above: Performed By: #### B MP #### [facility] [address] [address] [address] Grace Abdul CO2 [Moles/Vol] 26.1 mmol/L Normal 21.0-32.0 [facility] Comment on above: Performed By: #### B MP #### [facility] [address] [address] [address] Grace Abdul Creatinine [Mass/Vol] 1.11 mg/dL Critically high 0.55-1.02 [facility] Comment on above: Performed By: #### B MP #### [facility] [address] [address] [address] Grace Abdul EGFR-AF URUGUAYAN 57 mL/min/1.73m2 Critically low >=60 [facility] Comment on above: Performed By: #### B MP #### [facility] [address] [address] [address] Grace Abdul EGFR-NON AF URUGUAYAN 47 mL/min/1.73m2 Critically low >=60 The [facility] Comment on above: Performed By: #### B MP #### [facility] [address] [address] [address] Grace Abdul Glucose [Mass/Vol] 94 mg/dL Normal 74-106 The [facility] Comment on above: Performed By: #### B MP #### [facility] [address] [address] [address] Grace Abdul Potassium [Moles/Vol] 3.1 mmol/L Critically low 3.5-5.1 [facility] Comment on above: Performed By: #### B MP #### [facility] [address] [place] [address] Dr. rGace Abdul Performed By: #### C VDTBH #### [facility] [address] [place] [address] Dr. Grace Abdul Sodium [Moles/Vol] 129 mmol/L Critically low 136-145 Th [facility] Comment on above: Performed By: #### B MP #### [facility] [address] [place] [address] Dr. Grace Abdul Urea nitrogen [Mass/Vol] 16.0 mg/dL Normal 7.0-18.0 [facility] Comment on above: Performed By: #### B MP #### [facility] [address] [place] [address] Dr. Grace Abdul Urea nitrogen/Creatinine [Mass ratio] 14.4 mg/mg Normal [facility] Comment on above: Performed By: #### B MP #### [facility] [address] [place] [address] Dr. Grace Abdul Anion gap [Moles/Vol] 12.6 mmol/L Normal [facility] Comment on above: Performed By: #### C VDTBH #### [facility] [address] [place] [address] Dr. Grace Abdul Calcium [Mass/Vol] 8.6 mg/dL Normal 8.5-10.1 [facility] Comment on above: Performed By: #### C VDTBH #### [facility] [address] [place] [address] Dr. Grace Abdul Chloride [Moles/Vol] 95 mmol/L Critically low 98-107 [facility] Comment on above: Performed By: #### B MP #### [facility] [address] [place] [address] Dr. Grace Abdul Performed By: #### C VDTBH #### [facility] [address] [place] [address] Dr. Grace Abdul CO2 [Moles/Vol] 22.5 mmol/L Normal 21.0-32.0 [facility] Comment on above: Performed By: #### C VDTBH #### [facility] [address] [address] [address] Grace Abdul Creatinine [Mass/Vol] 0.95 mg/dL Normal 0.55-1.02 [facility] Comment on above: Performed By: #### C VDTBH #### [facility] [address] [address] [address] Grace Abdul EGFR-AF URUGUAYAN >60 Normal >=60 [facility] Comment on above: Performed By: #### C VDTBH #### [facility] [address] [address] [address] Grace Abdul EGFR-NON AF URUGUAYAN 56 mL/min/1.73m2 Critically low >=60 [facility] Comment on above: Performed By: #### C VDTBH #### [facility] [address] [address] [address] Grace Abdul Glucose [Mass/Vol] 92 mg/dL Normal 74-106 [facility] Comment on above: Performed By: #### C VDTBH #### [facility] [address] [address] [address] Grace Abdul Sodium [Moles/Vol] 127 mmol/L Critically low 136-145 Th [facility] Comment on above: Performed By: #### C VDTBH #### [facility] [address] [address] [address] Grace Abdul Urea nitrogen [Mass/Vol] 18.0 mg/dL Normal 7.0-18.0 [facility] Comment on above: Performed By: #### C VDTBH #### [facility] [address] [address] [address] Grace Abdul Urea nitrogen/Creatinine [Mass ratio] 18.9 mg/mg Normal [facility] Comment on above: Performed By: #### C VDTBH #### [facility] [address] [address] [address] Grace Abdul URINE MICROSCOPIC ONLYon BACTERIA TRACE Abnormal NONE SEEN [facility] Comment on above: Performed By: #### C VDTBH #### [facility] [address] [place] [address] Dr. Grace Abdul Bacteria identified Cx Nom (U) INDICATED Normal The [facility] Comment on above: Performed By: #### C VDTBH #### [facility] [address] [place] [address] Dr. Grace Abdul CAST NONE SEEN Normal NONE SEEN [facility] Comment on above: Performed By: #### C VDTBH #### [facility] [address] [place] [address] Dr. Grace Abdul Crystals LM Nom (Urine sed) NONE SEEN Normal NONE SEEN [facility] Comment on above: Performed By: #### C VDTBH #### [facility] [address] [place] [address] Dr. Grace Abdul Epithelial cells LM Ql (Urine sed) FEW Abnormal NONE SEEN /RARE The [facility] Comment on above: Performed By: #### C VDTBH #### [facility] [address] [place] [address] Dr. Grace Abdul MUCOUS NONE SEEN Normal NONE SEEN The [facility] Comment on above: Performed By: #### C VDTBH #### [facility] [address] [place] [address] Dr. Grace Abdul RBC 2-5 Abnormal 0-2 [facility] Comment on above: Performed By: #### C VDTBH #### [facility] [address] [place] [address] Dr. Grace Abdul WBC 5-[address] [facility] Comment on above: Performed By: #### C VDTBH #### [facility] [address] [place] [address] Dr. Grace Abdul AMYLASEon 11-15-2021 Amylase [Catalytic activity/Vol] 94 U/L Normal 25-115 The [facility] Comment on above: Performed By: #### C VDTBH #### [facility] [address] [place] [address] Dr. Grace Adbul BNPon 11-15-2021 Natriuretic peptide B (Bld) [Mass/Vol] 357.0 pg/mL Normal <=1,800.0 [facility] Comment on above: Performed By: #### C VDTBH #### [facility] [address] [place] [address] Dr. Grace Abdul CARDIAC JOVITA ADMITon 022 CK [Catalytic activity/Vol] 66 U/L Normal 26-192 The [facility] Comment on above: Performed By: #### C VDTBH #### [facility] [address] [place] [address] Dr. Grace Abdul CK.MB [Mass/Vol] 2.19 ng/mL Normal <=3.60 The [facility] Comment on above: Performed By: #### C VDTBH #### [facility] [address] [place] [address] Dr. Grace Abdul HSTROP 9.5 pg/mL Normal 4.0-51.3 The [facility] Comment on above: Result Comment: CUT- OFF POINTS HAVE BEEN ESTABLISHED BASED ON THE FOURTH UNIVERSAL DEFINITIONS OF MYOCARDIAL INFARCTION. THE UPPER REFERENCE LIMIT (URL) OF TROPONIN, DEFINED THE 99TH PERCENTILE OF cTnI DISTRIBUTION IN A REFERENCE POPULATION, HAS BEEN CONFIRMED THE DECISION THRESHOLD FOR [place] DIAGNOSIS. Performed By: #### C VDTBH #### [facility] [address] [place] [address] Dr. Grace Abdul JOHNNA 73 ng/mL Normal 9-82 The [facility] Comment on above: Performed By: #### C VDTBH #### [facility] [address] [place] [address] Dr. Grace Abdul CBC AUTO DIFFon 11-15-2021 BASO # 0.0 103/ul Normal 0.0-0.1 [facility] Comment on above: Performed By: #### B MP #### [facility] [address] [place] [address] Dr. Grace Abudl Basophils/100 WBC (Bld) 0.1 % Critically low 0.2-2.0 [facility] Comment on above: Performed By: #### B MP #### [facility] [address] [place] [address] Dr. Grace Abdul EO # 0.0 103/ul Normal 0.0-0.7 [facility] Comment on above: Performed By: #### B MP #### [facility] [address] [place] [address] Dr. Grace Abdul Eosinophils/100 WBC (Bld) 0.1 % Critically low 0.9-7.0 [facility] Comment on above: Performed By: #### B MP #### [facility] [address] [place] [address] Dr. Grace Abdul Erythrocyte distribution width (RBC) [Ratio] 11.9 % Normal 11.0-15.0 [facility] Comment on above: Performed By: #### B MP #### [facility] [address] [place] [address] Dr. Grace Abdul Hematocrit (Bld) [Volume fraction] 36.6 % Normal 36.0-48.0 [facility] Comment on above: Performed By: #### B MP #### [facility] [address] [place] [address] Dr. Grace Abdul Hemoglobin (Bld) [Mass/Vol] 13.2 g/dL Normal 12.0-16.0 [facility] Comment on above: Performed By: #### B MP #### [facility] [address] [place] [address] Dr. Grace Abdul IG # 0.05 10e3/ul Critically high 0.00-0.03 [facility] Comment on above: Performed By: #### B MP #### [facility] [address] [place] [address] Dr. Grace Abdul IG % 0.7 % Critically high 0.0-0.5 The [facility] Comment on above: Performed By: #### B MP #### [facility] [address] [place] [address] Dr. Grace Abdul LYMPH # 0.7 103/ul Critically low 1.2-3.8 The [facility] Comment on above: Performed By: #### B MP #### [facility] [address] [place] [address] Dr. Grace Abdul Lymphocytes/100 WBC (Bld) 9.8 % Critically low 20.5-60.0 [facility] Comment on above: Performed By: #### B MP #### [facility] [address] [place] [address] Dr. Grace Abdul MANUAL DIFF REQ NO Normal [facility] Comment on above: Performed By: #### B MP #### [facility] [address] [place] [address] Dr. Grace Abdul MCH (RBC) [Entitic mass] 31.5 pg Normal 26.7-34.0 [facility] Comment on above: Performed By: #### B MP #### [facility] [address] [place] [address] Dr. Grace Abdul MCHC (RBC) [Mass/Vol] 36.1 g/dL Critically high 29.9-35.2 [facility] Comment on above: Performed By: #### B MP #### [facility] [address] [place] [address] Dr. Grace Abdul MCV (RBC) [Entitic vol] 87.4 fL Normal 81.0-99.0 [facility] Comment on above: Performed By: #### B MP #### [facility] [address] [place] [address] Dr. Grace Abdul MONO # 0.9 103/ul Critically high 0.3-0.8 [facility] Comment on above: Performed By: #### B MP #### [facility] [address] [place] [address] Dr. Grace Abdul Monocytes/100 WBC (Bld) 12.4 % Critically high 1.7-12.0 [facility] Comment on above: Performed By: #### B MP #### [facility] [address] [place] [address] Dr. Grace Abdul NEUT # 5.8 103/ul Normal 1.4-6.5 [facility] Comment on above: Performed By: #### B MP #### [facility] [address] [place] [address] Dr. Grace Abdul Neutrophils/100 WBC (Bld) 76.9 % Critically high 43.0-75.0 [facility] Comment on above: Performed By: #### B MP #### [facility] [address] [place] [address] Dr. Grace Abdul Platelet mean volume (Bld) [Entitic vol] 9.0 fL Critically low 9.5-13.5 [facility] Comment on above: Performed By: #### B MP #### [facility] [address] [place] [address] Dr. Grace Abdul PLT 361 103/ul Normal 150-450 The [facility] Comment on above: Performed By: #### B MP #### [facility] [address] [place] [address] [address] Grace Abdul RBC 4.19 106/ul Critically low 4.20-5.40 [facility] Comment on above: Performed By: #### B MP #### [facility] [address] [place] [address] Dr. Grace Abdul WBC 7.6 103/ul Normal 4.0-11.0 [facility] Comment on above: Performed By: #### B MP #### [facility] [address] [place] [address] Dr. Grace Abdul Covid-19 PCR ([facility])on 10-23 SARS-CoV-2 (COVID-19) RNA LUISITO+probe Ql (Unsp spec) Not detected Normal NOT DETECTED The [facility] Comment on above: Result Comment: [...] for this test is supported by the Tape Editor of Health and Human Service's declaration that [...] used). Performed By: #### C VDTBH #### [facility] [address] [place] [address] Dr. Grace Abdul LIPASEon 11-15-2021 Lipase [Catalytic activity/Vol] 178.0 U/L Normal 73.0-393.0 [facility] Comment on above: Performed By: #### C VDTBH #### [facility] [address] [place] [address] Dr. Grace Abdul PROF 14(COMP METB)on 022 Albumin [Mass/Vol] 4.1 g/dL Normal 3.4-5.0 [facility] Comment on above: Performed By: #### C VDTBH #### [facility] [address] [place] [address] Dr. Grace Abdul Albumin/Globulin [Mass ratio] 1.2 {ratio} Normal [facility] Comment on above: Performed By: #### C VDTBH #### [facility] [address] [place] [address] Dr. Grace Abdul ALP [Catalytic activity/Vol] 63 U/L Normal 46-116 [facility] Comment on above: Performed By: #### C VDTBH #### [facility] [address] [place] [address] Dr. Grace Abdul ALT [Catalytic activity/Vol] 29 U/L Normal 14-59 [facility] Comment on above: Performed By: #### C VDTBH #### [facility] [address] [place] [address] Dr. Grace Abdul Anion gap [Moles/Vol] 14.8 mmol/L Normal [facility] Comment on above: Performed By: #### C VDTBH #### [facility] [address] [place] [address] Dr. Grace Abdul AST [Catalytic activity/Vol] 25 U/L Normal 15-37 [facility] Comment on above: Performed By: #### C VDTBH #### [facility] [address] [place] [address] [address] Grace Abdul Bilirubin [Mass/Vol] 0.6 mg/dL Normal 0.2-1.0 [facility] Comment on above: Performed By: #### C VDTBH #### [facility] [address] [place] [address] [address] Grace Abdul Calcium [Mass/Vol] 9.4 mg/dL Normal 8.5-10.1 [facility] Comment on above: Performed By: #### C VDTBH #### [facility] [address] [place] [address] [address] Grace Abdul Chloride [Moles/Vol] 83 mmol/L Critically low 98-107 [facility] Comment on above: Performed By: #### C VDTBH #### [facility] [address] [place] [address] Dr. Grace Abdul CO2 [Moles/Vol] 24.4 mmol/L Normal 21.0-32.0 [facility] Comment on above: Performed By: #### C VDTBH #### [facility] [address] [place] [address] [address] Grace Abdul Creatinine [Mass/Vol] 1.15 mg/dL Critically high 0.55-1.02 [facility] Comment on above: Performed By: #### C VDTBH #### [facility] [address] [place] [address] [address] Grace Abdul EGFR-AF URUGUAYAN 55 mL/min/1.73m2 Critically low >=60 The [facility] Comment on above: Performed By: #### C VDTBH #### [facility] [address] [place] [address] [address] Grace Abdul EGFR-NON AF URUGUAYAN 45 mL/min/1.73m2 Critically low >=60 [facility] Comment on above: Performed By: #### C VDTBH #### [facility] [address] [place] [address] [address] Grace Abdul Globulin (S) [Mass/Vol] 3.4 g/dL Normal [facility] Comment on above: Performed By: #### C VDTBH #### [facility] [address] [place] [address] Dr. Grace Abdul Glucose [Mass/Vol] 147 mg/dL Critically high 74-106 T [facility] Comment on above: Performed By: #### C VDTBH #### [facility] [address] [place] [address] Dr. Grace Abdul Potassium [Moles/Vol] 3.2 mmol/L Critically low 3.5-5.1 [facility] Comment on above: Performed By: #### C VDTBH #### [facility] [address] [place] [address] Dr. Grace Abdul Protein [Mass/Vol] 7.5 g/dL Normal 6.4-8.2 The [facility] Comment on above: Performed By: #### C VDTBH #### [facility] [address] [place] [address] Dr. Grace Abdul Urea nitrogen/Creatinine [Mass ratio] 21.7 mg/mg Normal [facility] Comment on above: Performed By: #### C VDTBH #### [facility] [address] [place] [address] Dr. Grace Abdul PROF CHEM 8 (BAS METB)on Anion gap [Moles/Vol] 13.6 mmol/L Normal [facility] Comment on above: Performed By: #### C VDTBH #### [facility] [address] [place] [address] Dr. Grace Abdul Calcium [Mass/Vol] 8.8 mg/dL Normal 8.5-10.1 The [facility] Comment on above: Performed By: #### C VDTBH #### [facility] [address] [place] [address] Dr. Grace Abdul Chloride [Moles/Vol] 88 mmol/L Critically low 98-107 [facility] Comment on above: Performed By: #### C VDTBH #### [facility] [address] [place] [address] Dr. Grace Abdul CO2 [Moles/Vol] 21.8 mmol/L Normal 21.0-32.0 [facility] Comment on above: Performed By: #### C VDTBH #### [facility] [address] [place] [address] Dr. Grace Abdul Creatinine [Mass/Vol] 1.11 mg/dL Critically high 0.55-1.02 [facility] Comment on above: Performed By: #### C VDTBH #### [facility] [address] [place] [address] Dr. Grace Abdul EGFR-AF URUGUAYAN 57 mL/min/1.73m2 Critically low >=60 [facility] Comment on above: Performed By: #### C VDTBH #### [facility] [address] [place] [address] Dr. Grace Abdul EGFR-NON AF URUGUAYAN 47 mL/min/1.73m2 Critically low >=60 [facility] Comment on above: Performed By: #### C VDTBH #### [facility] [address] [place] [address] Dr. Grace Abdul Glucose [Mass/Vol] 132 mg/dL Critically high 74-106 T [facility] Comment on above: Performed By: #### C VDTBH #### [facility] [address] [place] [address] Dr. Grace Abdul Potassium [Moles/Vol] 3.4 mmol/L Critically low 3.5-5.1 [facility] Comment on above: Performed By: #### C VDTBH #### [facility] [address] [place] [address] Dr. Grace Abdul Sodium [Moles/Vol] 120 mmol/L Critically low 136-145 Th [facility] Comment on above: Result Comment: Test Repeated. Critical Value Verified Performed By: #### C VDTBH #### [facility] [address] [place] [address] Dr. Grace Abdul Urea nitrogen [Mass/Vol] 25.0 mg/dL Critically high 7.0-18.0 [facility] Comment on above: Performed By: #### C VDTBH #### [facility] [address] [address] [address] Grace Abdul Urea nitrogen/Creatinine [Mass ratio] 22.5 mg/mg Normal [facility] Comment on above: Performed By: #### C VDTBH #### [facility] [address] [id number] Grace Abdul PROTIMEon 11-15-2021 INR Coag (PPP) [Relative time] 0.94 {INR} Normal [facility] Comment on above: Performed By: #### C VDTBH #### [facility] [address] [place] [address] Dr. Grace Abdul INR GUIDELINES SEE BELOW Normal [facility] Comment on above: Result Comment: DURAN RED INR: 2.0 - 3.0 CONDITIONS NOT LISTED BELOW 2.5 - 3.5 FOR PROSTHETIC HEART VALVE REPLACEMENT 2.5 - 3.5 RECURRENT THROMBOSIS Performed By: #### C VDTBH #### [facility] [address] [place] [address] Dr. Grace Abdul PT Coag (PPP) [Time] 10.2 s Normal 9.0-11.6 [facility] Comment on above: Performed By: #### C VDTBH #### [facility] [address] [place] [address] Dr. Grace Abdul XR ABD FLAT UP_PA [...] JARET LINARES Date: 2021-11-15 13:56 Normal The [facility] BNPon 11-11-2021 Natriuretic peptide B (Bld) [Mass/Vol] 546.0 pg/mL Normal <=1,800.0 The [facility] Comment on above: Performed By: #### C MP, TSH, HSTROPN, BNP ####[facility] [id number] [place] [id number]. Grace Abdul CBC AUTO DIFFon 11-11-2021 BASO # 0.0 103/ul Normal 0.0-0.1 The [facility] Comment on above: Performed By: #### C BC #### [facility] [address] [place] [address] [address] Grace Abdul Basophils/100 WBC (Bld) 0.3 % Normal 0.2-2.0 The [facility] Comment on above: Performed By: #### C BC #### [facility] [address] [place] [address] Dr. Grace Abdul EO # 0.0 103/ul Normal 0.0-0.7 The [facility] Comment on above: Performed By: #### C BC #### [facility] [address] [place] [address] Dr. Grace Abdul Eosinophils/100 WBC (Bld) 0.5 % Critically low 0.9-7.0 The [facility] Comment on above: Performed By: #### C BC #### [facility] [address] [place] [address] Dr. Grace Abdul Erythrocyte distribution width (RBC) [Ratio] 12.9 % Normal 11.0-15.0 The [facility] Comment on above: Performed By: #### C BC #### [facility] [address] [place] [address] Dr. Grace Abdul Hematocrit (Bld) [Volume fraction] 36.1 % Normal 36.0-48.0 The [facility] Comment on above: Performed By: #### C BC #### [facility] [address] [place] [address] Dr. Grace Abdul Hemoglobin (Bld) [Mass/Vol] 12.3 g/dL Normal 12.0-16.0 The [facility] Comment on above: Performed By: #### C BC #### [facility] [address] [place] [address] Dr. Grace Abdul IG # 0.01 10e3/ul Normal 0.00-0.03 [facility] Comment on above: Performed By: #### C BC #### [facility] [address] [place] [address] Dr. Grace Abdul IG % 0.3 % Normal 0.0-0.5 [facility] Comment on above: Performed By: #### C BC #### [facility] [address] [place] [address] Dr. Grace Abdul LYMPH # 0.6 103/ul Critically low 1.2-3.8 [facility] Comment on above: Performed By: #### C BC #### [facility] [address] [place] [address] Dr. Grace Abdul Lymphocytes/100 WBC (Bld) 14.8 % Critically low 20.5-60.0 [facility] Comment on above: Performed By: #### C BC #### [facility] [address] [place] [address] Dr. Grace Abdul MANUAL DIFF REQ NO Normal [facility] Comment on above: Performed By: #### C BC #### [facility] [address] [place] [address] Dr. Grace Abdul MCH (RBC) [Entitic mass] 31.5 pg Normal 26.7-34.0 [facility] Comment on above: Performed By: #### C BC #### [facility] [address] [place] [address] Dr. Grace Abdul MCHC (RBC) [Mass/Vol] 34.1 g/dL Normal 29.9-35.2 The [facility] Comment on above: Performed By: #### C BC #### [facility] [address] [place] [address] Dr. Grace Abdul MCV (RBC) [Entitic vol] 92.6 fL Normal 81.0-99.0 [facility] Comment on above: Performed By: #### C BC #### [facility] [address] [place] [address] Dr. Grace Abdul MONO # 0.5 103/ul Normal 0.3-0.8 [facility] Comment on above: Performed By: #### C BC #### [facility] [address] [place] [address] Dr. Grace Abdul Monocytes/100 WBC (Bld) 13.5 % Critically high 1.7-12.0 [facility] Comment on above: Performed By: #### C BC #### [facility] [address] [place] [address] Dr. Grace Abdul NEUT # 2.7 103/ul Normal 1.4-6.5 [facility] Comment on above: Performed By: #### C BC #### [facility] [address] [place] [address] Dr. Grace Abdul Neutrophils/100 WBC (Bld) 70.6 % Normal 43.0-75.0 [facility] Comment on above: Performed By: #### C BC #### [facility] [address] [place] [address] Dr. Grace Abudl Platelet mean volume (Bld) [Entitic vol] 9.2 fL Critically low 9.5-13.5 [facility] Comment on above: Performed By: #### C BC #### [facility] [address] [place] [address] Dr. Grace Abdul PLT 279 103/ul Normal 150-450 The [facility] Comment on above: Performed By: #### C BC #### [facility] [address] [place] [address] Dr. Grace Abdul RBC 3.90 106/ul Critically low 4.20-5.40 The [facility] Comment on above: Performed By: #### C BC #### [facility] [address] [place] [address] Dr. Grace Abdul WBC 3.9 103/ul Critically low 4.0-11.0 The [facility] Comment on above: Performed By: #### C BC #### [facility] [address] [place] [address] Dr. Grace Abdul PROF 14(COMP METB)on 022 Albumin [Mass/Vol] 3.3 g/dL Critically low 3.4-5.0 Th e [facility] Comment on above: Performed By: #### C MP, TSH, HSTROPN, BNP #### [facility] [address] [place] [address] Dr. Grace Abdul Albumin/Globulin [Mass ratio] 1.2 {ratio} Normal [facility] Comment on above: Performed By: #### C MP, TSH, HSTROPN, BNP #### [facility] [address] [place] [address] Dr. Grace Abdul ALP [Catalytic activity/Vol] 60 U/L Normal 46-116 [facility] Comment on above: Performed By: #### C MP, TSH, HSTROPN, BNP #### [facility] [address] [place] [address] Dr. Grace Abdul ALT [Catalytic activity/Vol] 26 U/L Normal 14-59 [facility] Comment on above: Performed By: #### C MP, TSH, HSTROPN, BNP #### [facility] [address] [place] [address] Dr. Grace Abdul Anion gap [Moles/Vol] 14.8 mmol/L Normal [facility] Comment on above: Performed By: #### C MP, TSH, HSTROPN, BNP #### [facility] [address] [place] [address] Dr. Grace Abdul AST [Catalytic activity/Vol] 20 U/L Normal 15-37 [facility] Comment on above: Performed By: #### C MP, TSH, HSTROPN, BNP #### [facility] [address] [place] [address] Dr. Grace Abdul Bilirubin [Mass/Vol] 0.3 mg/dL Normal 0.2-1.0 [facility] Comment on above: Performed By: #### C MP, TSH, HSTROPN, BNP #### [facility] [address] [place] [address] Dr. Grace Abdul Calcium [Mass/Vol] 8.2 mg/dL Critically low 8.5-10.1 Th e [facility] Comment on above: Performed By: #### C MP, TSH, HSTROPN, BNP #### [facility] [address] [place] [address] Dr. Grace Abdul Chloride [Moles/Vol] 100 mmol/L Normal 98-107 [facility] Comment on above: Performed By: #### C MP, TSH, HSTROPN, BNP #### [facility] [address] [place] [address] Dr. Grace Abdul CO2 [Moles/Vol] 23.8 mmol/L Normal 21.0-32.0 [facility] Comment on above: Performed By: #### C MP, TSH, HSTROPN, BNP #### [facility] [address] [place] [address] Dr. Grace Abdul Creatinine [Mass/Vol] 1.27 mg/dL Critically high 0.55-1.02 [facility] Comment on above: Performed By: #### C MP, TSH, HSTROPN, BNP #### [facility] [address] [place] [address] Dr. Grace Abdul EGFR-AF URUGUAYAN 49 mL/min/1.73m2 Critically low >=60 [facility] Comment on above: Performed By: #### C MP, TSH, HSTROPN, BNP #### [facility] [address] [place] [address] Dr. Grace Abdul EGFR-NON AF URUGUAYAN 40 mL/min/1.73m2 Critically low >=60 [facility] Comment on above: Performed By: #### C MP, TSH, HSTROPN, BNP #### [facility] [address] [place] [address] Dr. Grace Abdul Globulin (S) [Mass/Vol] 2.7 g/dL Normal [facility] Comment on above: Performed By: #### C MP, TSH, HSTROPN, BNP #### [facility] [address] [place] [address] Dr. Grace Abdul Glucose [Mass/Vol] 116 mg/dL Critically high 74-106 T [facility] Comment on above: Performed By: #### C MP, TSH, HSTROPN, BNP #### [facility] [address] [address] [address] Grace Abdul Potassium [Moles/Vol] 3.6 mmol/L Normal 3.5-5.1 [facility] Comment on above: Performed By: #### C MP, TSH, HSTROPN, BNP #### [facility] [address] [place] [address] Dr. Grace Abdul Protein [Mass/Vol] 6.0 g/dL Critically low 6.4-8.2 Th [facility] Comment on above: Performed By: #### C MP, TSH, HSTROPN, BNP #### [facility] [address] [place] [address] Dr. Grace Abdul Sodium [Moles/Vol] 135 mmol/L Critically low 136-145 Th [facility] Comment on above: Performed By: #### C MP, TSH, HSTROPN, BNP #### [facility] [address] [place] [address] Dr. Grace Abdul Urea nitrogen [Mass/Vol] 25.0 mg/dL Critically high 7.0-18.0 [facility] Comment on above: Performed By: #### C MP, TSH, HSTROPN, BNP #### [facility] [address] [place] [address] Dr. Grace Abdul Urea nitrogen/Creatinine [Mass ratio] 19.7 mg/mg Normal [facility] Comment on above: Performed By: #### C MP, TSH, HSTROPN, BNP #### [facility] [address] [place] [address] Dr. Grace Abdul PROTIMEon 11-11-2021 INR Coag (PPP) [Relative time] 0.95 {INR} Normal The [facility] Comment on above: Performed By: #### B MP #### [facility] [address] [place] [address] Dr. Grace Abdul INR GUIDELINES SEE BELOW Normal The [facility] Comment on above: Result Comment: DURAN RED INR: 2.0 - 3.0 CONDITIONS NOT LISTED BELOW 2.5 - 3.5 FOR PROSTHETIC HEART VALVE REPLACEMENT 2.5 - 3.5 RECURRENT THROMBOSIS Performed By: #### B MP #### [facility] [address] [address] [address] Grace Abdul PT Coag (PPP) [Time] 10.3 s Normal 9.0-11.6 The [facility] Comment on above: Performed By: #### B MP #### [facility] [id number] Grace Abdul PTTon 11-11-2021 aPTT Coag (Bld) [Time] 21.3 s Critically low 22.3-36.2 The [facility] Comment on above: Performed By: #### B MP #### [facility] [address] [address] [address] Grace Abdul TROPONIN, HIGH SENSITIVITYon 11-11-2021 HSTROP 6.5 pg/mL Normal 4.0-51.3 The [facility] Comment on above: Result Comment: CUT- OFF POINTS HAVE BEEN ESTABLISHED BASED ON THE FOURTH UNIVERSAL DEFINITIONS OF MYOCARDIAL INFARCTION. THE UPPER REFERENCE LIMIT (URL) OF TROPONIN, DEFINED THE 99TH PERCENTILE OF cTnI DISTRIBUTION IN A REFERENCE POPULATION, HAS BEEN CONFIRMED THE DECISION THRESHOLD FOR [place] DIAGNOSIS. Performed By: #### C MP, TSH, HSTROPN, BNP #### [facility] [id number] Grace Abdul TSHon 11-11-2021 TSH 2.140 uIU/mL Normal 0.358-3.740 [facility] Comment on above: Performed By: #### C MP, TSH, HSTROPN, BNP ####[facility] [id number] [place], [place] [id number]. Grace Abdul XR CHEST 1 Von 11-11-2021 [...] KRANTHI CONNORS Date: 2021-11-11 13:34 Normal The [facility] CARDIAC JOVITA ADMITon 022 CK [Catalytic activity/Vol] 89 U/L Normal 26-192 The [facility] Comment on above: Performed By: #### C VDTBH #### [facility] [address] [place] [address] Dr. Grace Abdul CK.MB [Mass/Vol] 1.92 ng/mL Normal <=3.60 The [facility] Comment on above: Performed By: #### C VDTBH #### [facility] [address] [place] [address] Dr. Grace Abdul HSTROP 5.7 pg/mL Normal 4.0-51.3 The [facility] Comment on above: Result Comment: CUT- OFF POINTS HAVE BEEN ESTABLISHED BASED ON THE FOURTH UNIVERSAL DEFINITIONS OF MYOCARDIAL INFARCTION. THE UPPER REFERENCE LIMIT (URL) OF TROPONIN, DEFINED THE 99TH PERCENTILE OF cTnI DISTRIBUTION IN A REFERENCE POPULATION, HAS BEEN CONFIRMED THE DECISION THRESHOLD FOR [place] DIAGNOSIS. Performed By: #### C VDTBH #### [facility] [address] [place] [address] Dr. Grace Abdul JOHNNA 86 ng/mL Critically high 9-82 The [facility] Comment on above: Performed By: #### C VDTBH #### [facility] [address] [place] [address] Dr. Grace Abdul CBC AUTO DIFFon 09-13-2021 BASO # 0.0 103/ul Normal 0.0-0.1 [facility] Comment on above: Performed By: #### C VDTBH #### [facility] [address] [place] [address] Dr. Grace Abdul Basophils/100 WBC (Bld) 0.5 % Normal 0.2-2.0 [facility] Comment on above: Performed By: #### C VDTBH #### [facility] [address] [place] [address] Dr. Grace Abdul EO # 0.0 103/ul Normal 0.0-0.7 The [facility] Comment on above: Performed By: #### C VDTBH #### [facility] [address] [place] [address] Dr. Grace Abdul Eosinophils/100 WBC (Bld) 0.7 % Critically low 0.9-7.0 [facility] Comment on above: Performed By: #### C VDTBH #### [facility] Laboratory [address] [place] [address] Dr. Grace Abdul Erythrocyte distribution width (RBC) [Ratio] 13.2 % Normal 11.0-15.0 [facility] Comment on above: Performed By: #### C VDTBH #### [facility] Laboratory [address] [place] [address] Dr. Grace Abdul Hematocrit (Bld) [Volume fraction] 34.8 % Critically low 36.0-48.0 [facility] Comment on above: Performed By: #### C VDTBH #### [facility] [address] [place] [address] Dr. Grace Abdul Hemoglobin (Bld) [Mass/Vol] 11.9 g/dL Critically low 12.0-16.0 [facility] Comment on above: Performed By: #### C VDTBH #### [facility] [address] [place] [address] Dr. Grace Abdul IG # 0.01 10e3/ul Normal 0.00-0.03 The [facility] Comment on above: Performed By: #### C VDTBH #### [facility] [address] [place] [address] Dr. Grace Abdul IG % 0.2 % Normal 0.0-0.5 The [facility] Comment on above: Performed By: #### C VDTBH #### [facility] [address] [place] [address] Dr. Grace Abdul LYMPH # 0.6 103/ul Critically low 1.2-3.8 The [facility] Comment on above: Performed By: #### C VDTBH #### [facility] Laboratory [address] [place] [address] Dr. Grace Abdul Lymphocytes/100 WBC (Bld) 14.2 % Critically low 20.5-60.0 [facility] Comment on above: Performed By: #### C VDTBH #### [facility] [address] [place] [address] Dr. Grace Abdul MANUAL DIFF REQ NO Normal The [facility] Comment on above: Performed By: #### C VDTBH #### [facility] [address] [place] [address] Dr. Grace Abdul MCH (RBC) [Entitic mass] 31.5 pg Normal 26.7-34.0 [facility] Comment on above: Performed By: #### C VDTBH #### [facility] [address] [place] [address] Dr. Grace Abdul MCHC (RBC) [Mass/Vol] 34.2 g/dL Normal 29.9-35.2 [facility] Comment on above: Performed By: #### C VDTBH #### [facility] [address] [place] [address] Dr. Grace Abdul MCV (RBC) [Entitic vol] 92.1 fL Normal 81.0-99.0 [facility] Comment on above: Performed By: #### C VDTBH #### [facility] [address] [place] [address] Dr. Grace Abdul MONO # 0.7 103/ul Normal 0.3-0.8 [facility] Comment on above: Performed By: #### C VDTBH #### [facility] [address] [place] [address] Dr. Grace Abdul Monocytes/100 WBC (Bld) 15.6 % Critically high 1.7-12.0 [facility] Comment on above: Performed By: #### C VDTBH #### [facility] [address] [place] [address] Dr. Grace Abdul NEUT # 3.0 103/ul Normal 1.4-6.5 The [facility] Comment on above: Performed By: #### C VDTBH #### [facility] Laboratory [address] [address] [address] Grace Abdul Neutrophils/100 WBC (Bld) 68.8 % Normal 43.0-75.0 [facility] Comment on above: Performed By: #### C VDTBH #### [facility] [address] [address] [address] Grace Abdul Platelet mean volume (Bld) [Entitic vol] 9.5 fL Normal 9.5-13.5 [facility] Comment on above: Performed By: #### C VDTBH #### [facility] [address] [address] [address] Grace Abdul PLT 303 103/ul Normal 150-450 [facility] Comment on above: Performed By: #### C VDTBH #### [facility] [address] [place] [address] Dr. Grace Abdul RBC 3.78 106/ul Critically low 4.20-5.40 The [facility] Comment on above: Performed By: #### C VDTBH #### [facility] [address] [place] [address] Dr. Grace Abdul WBC 4.4 103/ul Normal 4.0-11.0 [facility] Comment on above: Performed By: #### C VDTBH #### [facility] [address] [place] [address] HEAD WO CONon [...] KRANTHI CONNORS Date: 2021-09-13 13:24 Normal The [facility] Covid-19 PCR (CVDTB)on 08-22 SARS-CoV-2 (COVID-19) RNA LUISITO+probe Ql (Unsp spec) Not detected Normal NOT DETECTED The [facility] Comment on above: Result Comment: [...] for this test is supported by the Tape Editor of Health and Human Service's declaration that [...] used). Performed By: #### C VDTBH #### [facility] [address] [place] [address] Dr. Grace Abdul ER URINE PROFILEon 2 Bilirubin Ql (U) Negative Normal NEGATIVE The [facility] Comment on above: Performed By: #### B MP #### [facility] [address] [place] [address] Dr. Grace Abdul Clarity (U) CLEAR Normal CLEAR The [facility] Comment on above: Performed By: #### B MP #### [facility] [address] [place] [address] Dr. Grace Abdul Color (U) LT. YELLOW Normal YELLOW The [facility] Comment on above: Performed By: #### B MP #### [facility] [address] [place] [address] Dr. Grace Abdul ERUAHD A micrscopic examination will be performed if indicated. Normal The [facility] Comment on above: Performed By: #### B MP #### [facility] [address] [address] [address] Grace Abdul Glucose Ql (U) Negative Normal NEGATIVE [facility] Comment on above: Performed By: #### B MP #### [facility] [address] [address] [address] Grace Abdul Hemoglobin Ql (U) Negative Normal NEGATIVE [facility] Comment on above: Performed By: #### B MP #### [facility] [address] [address] [address] Grace Abdul Ketones Ql (U) TRACE Abnormal NEGATIVE [facility] Comment on above: Performed By: #### B MP #### [facility] [address] [place] [address] Dr. Grace Abdul LEUKOCYTES TRACE Abnormal NEGATIVE [facility] Comment on above: Performed By: #### B MP #### [facility] [address] [place] [address] Dr. Grace Abdul Nitrite Ql (U) Negative Normal NEGATIVE [facility] Comment on above: Performed By: #### B MP #### [facility] [address] [place] [address] Dr. Grace Abdul pH (U) 8.0 [pH] Normal 5-9 [facility] Comment on above: Performed By: #### B MP #### [facility] [address] [place] [address] Dr. Grace Abdul SPEC GRAVITY 1.015 Normal 1.005-<=1.025 [facility] Comment on above: Performed By: #### B MP #### [facility] [address] [address] [address] Grace Abdul UA PROTEIN Negative Normal NEGATIVE/ TRACE The [facility] Comment on above: Performed By: #### B MP #### [facility] [address] [place] [address] Dr. Grace Abdul UR MICRO IND INDICATED Normal The [facility] Comment on above: Performed By: #### B MP #### [facility] [address] [place] [address] Dr. Grace Abdul Urobilinogen Qn (U) 0.2 {Ashley'U}/dL Normal 0.2 - 1. 0 [facility] Comment on above: Performed By: #### B #### [facility] [address] [place] [address] Dr. Grace Abdul PROF 14(COMP METB)on 022 Albumin [Mass/Vol] 3.8 g/dL Normal 3.4-5.0 [facility] Comment on above: Performed By: #### C VDTBH #### [facility] [address] [place] [address] Dr. Grace Abdul Albumin/Globulin [Mass ratio] 1.4 {ratio} Normal [facility] Comment on above: Performed By: #### C VDTBH #### [facility] [address] [place] [address] Dr. Grace Abdul ALP [Catalytic activity/Vol] 53 U/L Normal 46-116 [facility] Comment on above: Performed By: #### C VDTBH #### [facility] [address] [place] [address] Dr. Grace Abdul ALT [Catalytic activity/Vol] 20 U/L Normal 14-59 [facility] Comment on above: Performed By: #### C VDTBH #### [facility] [address] [place] [address] Dr. Grace Abdul Anion gap [Moles/Vol] 12.0 mmol/L Normal [facility] Comment on above: Performed By: #### C VDTBH #### [facility] [address] [place] [address] Dr. Grace Abdul AST [Catalytic activity/Vol] 18 U/L Normal 15-37 [facility] Comment on above: Performed By: #### C VDTBH #### [facility] [address] [place] [address] Dr. Grace Abdul Bilirubin [Mass/Vol] 0.4 mg/dL Normal 0.2-1.0 [facility] Comment on above: Performed By: #### C VDTBH #### [facility] [address] [address] [address] Grace Abdul Calcium [Mass/Vol] 9.5 mg/dL Normal 8.5-10.1 [facility] Comment on above: Performed By: #### C VDTBH #### [facility] [address] [address] [address] Grace Abdul Chloride [Moles/Vol] 99 mmol/L Normal 98-107 [facility] Comment on above: Performed By: #### C VDTBH #### [facility] [address] [address] [address] Grace Abdul CO2 [Moles/Vol] 28.1 mmol/L Normal 21.0-32.0 [facility] Comment on above: Performed By: #### C VDTBH #### [facility] [address] [place] [address] Dr. Grace Abdul Creatinine [Mass/Vol] 1.25 mg/dL Critically high 0.55-1.02 [facility] Comment on above: Performed By: #### C VDTBH #### [facility] [address] [address] [address] Grace Abdul EGFR-AF URUGUAYAN 50 mL/min/1.73m2 Critically low >=60 [facility] Comment on above: Performed By: #### C VDTBH #### [facility] [address] [address] [address] Grace Abdul EGFR-NON AF URUGUAYAN 41 mL/min/1.73m2 Critically low >=60 [facility] Comment on above: Performed By: #### C VDTBH #### [facility] [address] [address] [address] Grace Abdul Globulin (S) [Mass/Vol] 2.7 g/dL Normal [facility] Comment on above: Performed By: #### C VDTBH #### [facility] [address] [address] [address] Grace Abdul Glucose [Mass/Vol] 131 mg/dL Critically high 74-106 T [facility] Comment on above: Performed By: #### C VDTBH #### [facility] [address] [place] [address] Dr. Grace Abdul Potassium [Moles/Vol] 4.1 mmol/L Normal 3.5-5.1 [facility] Comment on above: Performed By: #### C VDTBH #### [facility] [address] [place] [address] Dr. Grace Abdul Protein [Mass/Vol] 6.5 g/dL Normal 6.4-8.2 [facility] Comment on above: Performed By: #### C VDTBH #### [facility] [address] [place] [address] Dr. Grace Abdul Sodium [Moles/Vol] 135 mmol/L Critically low 136-145 [facility] Comment on above: Performed By: #### C VDTBH #### [facility] [address] [place] [address] Dr. Grace Abdul Urea nitrogen [Mass/Vol] 33.0 mg/dL Critically high 7.0-18.0 [facility] Comment on above: Performed By: #### C VDTBH #### [facility] [address] [place] [address] Dr. Grace Abdul Urea nitrogen/Creatinine [Mass ratio] 26.4 mg/mg Normal [facility] Comment on above: Performed By: #### C VDTBH #### [facility] [address] [place] [address] Dr. Grace Abdul URINE MICROSCOPIC ONLYon BACTERIA NONE SEEN Normal NONE SEEN [facility] Comment on above: Performed By: #### C BC #### [facility] [address] [place] [address] Dr. Grace Abdul Bacteria identified Cx Nom (U) NOT INDICATED Normal [facility] Comment on above: Performed By: #### C BC #### [facility] [address] [place] [address] Dr. Grace Abdul CAST NONE SEEN Normal NONE SEEN [facility] Comment on above: Performed By: #### C BC #### [facility] [address] [address] [address] Grace Abdul Crystals LM Nom (Urine sed) NONE SEEN Normal NONE SEEN The [facility] Comment on above: Performed By: #### C BC #### [facility] [address] [place] [address] Dr. Grace Abdul Epithelial cells LM Ql (Urine sed) FEW Abnormal NONE SEEN /RARE The [facility] Comment on above: Performed By: #### C BC #### [facility] [address] [place] [address] Dr. Grace Abdul MUCOUS NONE SEEN Normal NONE SEEN The [facility] Comment on above: Performed By: #### C BC #### [facility] [address] [place] [address] Dr. Grace Abdul RBC 0-2 Normal 0-2 The [facility] Comment on above: Performed By: #### C BC #### [facility] [address] [place] [address] Dr. Grace Abdul WBC 0-2 Abnormal NONE SEEN The [facility] Comment on above: Performed By: #### C BC #### [facility] [address] [place] [address] Dr. Grace Abdul XR CHEST 1 Von [...] KRANTHI CONNORS Date: 2021-09-13 13:19 Normal The [facility] CERV SP W/OBLS/FLEX/EXT 6 OR >on 12-12-2020 CERV SP W/OBLS/FLEX/EXT 6 OR > STUDY: CERV SP W/OBLS/FLEX/EXT 6 OR >; 12/12/2020 9:40 am INDICATION: NECK PAIN. COMPARISON: None. ACCESSION NUMBER(S): [id number] ORDERING CLINICIAN: Aiden Younger TECHNIQUE: AP, lateral, [...] findings. Dense left carotid artery calcifications. Normal [facility] Vital Signs Date Time Vital Sign Value Performing Clinician Aimee pollock 09-21-2022 12:51-0400 Diastolic blood pressure 60 mm[Hg] Carolyn Vanegas MD Work Phone: [facility] 09-21-2022 12:51-0400 Heart rate 67 /min Carolyn Vanegas MD Work Phone: [facility] 09-21-2022 12:51-0400 Systolic blood pressure 153 mm[Hg] Carolyn Vanegas MD Work Phone: [facility] 05-14-2022 14:24-0400 Diastolic blood pressure 87 mm[Hg] Marty Dozier DO Work Phone: [facility] 05-14-2022 14:24-0400 Heart rate 72 /min Marty Dozier DO Work Phone: [facility] 05-14-2022 14:24-0400 Systolic blood pressure 158 mm[Hg] Marty Dozier DO Work Phone: [facility] 05-14-2022 14:22-0400 Body height 152.4 cm Marty Dozier DO Work Phone: [facility] 05-14-2022 14:22-0400 Body weight 76.39 kg Matry Dozier DO Work Phone: [facility] 05-14-2022 14: SaO2% (BldA) [Mass fraction] 99 % Marty Dozier DO Work Phone: [facility] Encounters Encounter Date Encounter Type Care Provider Facility Start: 09-26-2023 End: 09-26-2023 ambulatory Lyn Quiñones MD [facility]: [facility] Start: 09-12-2023 End: 09-12-2023 ambulatory Lyn Quiñones MD Facility: [facility] Start: 08-18-2023 End: 08-18-2023 ambulatory Galina Rogers Facility:[facility] Start: 08-08-2023 End: 08-08-2023 ambulatory COLETTE MATOS [...] Start: 09-21-2022 End: 09-21-2022 ambulatory GALINA ROGERS Facility:[facility] Start: 09-21-2022 End: 09-21-2022 Patient [...] . Facility:[facility] Start: 05-14-2022 End: 05-14-2022 ambulatory MRATY DOZIER Facility:[facility] Start: 05-14-2022 End: 05-14-2022 Patient [...] 09-12-2017 End: 09-13-2017 Patient encounter DEFAULT PHYSICIAN Facility:[facility] Plan of Treatment Date Care Activity Detail Author Start: 10-22-2022 Influenza vaccination INFLUENZA (#1) [facility] Start: 04-11-2022 COVID-19 VACCINE (6 - Moderna series) COVID-19 VACCINE (6 - Moderna series) [facility] Start: 02-21-2022 ADVANCE DIRECTIVE DISCUSSION ADVANCE DIRECTIVE DISCUSSION [facility] Start: 02-21-2022 DEPRESSION ASSESSMENT DEPRESSION ASS ESSMENT [facility] Start: 11-12-2017 PNEUMOCOCCAL: 65+ (2 - PPSV23 if available, else PCV20) PNEUMOCOCCAL: 65+ (2 - PPSV23 if available, else PCV20) [facility] Start: 11-12-2017 PNEUMOCOCCAL: 65+ (2 - PPSV23 or PCV20) PNEUMOCOCCAL: 65+ (2 - PPSV23 or PCV20) [facility] Start: 07-22-2017 SHINGRIX VACCINE (2 of 3) MANLEY GRIX VACCINE (2 of 3) [facility] Start: 04-30-2004 BONE DENSITY BONE DENSITY [facility] Start: 04-30-1984 DIABETES SCREEN DIABETES SCREEN [facility] Start: 04-30-1958 Urine microalbumin profile DTAP,TDAP ,TD (1 - Tdap) [facility] Immunizations Immunization Date Immunization Notes Care Provider Fa cility 12-02-2021 Influenza, injectabl e, Madin [place] Canine Kidney, preservative free, quadrivalent Marty Mendis DO Work Phone: [facility] 11-28-2020 influenza virus vacc ine, unspecified formulation Marty Mendis DO Work Phone: [facility] 11-29-2019 Seasonal trivalent influenza vaccine, adjuvanted, preservative free Marty Guillaumeis DO Work Phone: [facility] 05-27-2017 zoster vaccine, live Marty Dozier DO Work Phone: [facility] 11-12-2016 pneumococcal conjuga te vaccine, 13 valent Marty Mendis DO Work Phone: [facility] Payers Date Payer Category Payer Private Health Insurance [facility] AAR SUPPLEMENT [id number] 2022-Present [phone] [address] [place] [address] Indemnity [id number] 2004 Medicare [id number] 2004 Unknown 1959 Medicare [id number] 1959 Self-pay 1959 Unknown [id number] 1939 Unknown [id number] 2.16.840.1.861106.3.579.2 .593 1939 Unknown [id number] 2.16.840.1.598845.3.579.2 .593 1939 Unknown [id number] 2.16.840.1.623732.3.579.2 .593 1939 Unknown [id number] 2.16.840.1.083304.3.579.2 .593 1939 Unknown [id number] 2.16.840.1.897695.3.579.2 .593 1939 Unknown [id number] 2.16.840.1.306182.3.579.2 .593 1939 Unknown [id number] 2.16.840.1.224380.3.579.2 .593 1939 Unknown [id number] 2.16.840.1.383059.3.579.2 .593 1939 Unknown [id number] 2.16.840.1.344822.3.579.2 .593 1939 Unknown [id number] 2.16.840.1.444425.3.579.2 .593 1939 Unknown [id number] 2.16.840.1.354963.3.579.2 .593 1939 Unknown [id number] 2.16.840.1.930338.3.579.2 .593 1939 Unknown [id number] 2.16.840.1.541274.3.579.2 .593 1939 Unknown [id number] 2.16.840.1.502341.3.579.2 .593 1939 Unknown [id number] 2.16.840.1.541740.3.579.2 .593 1939 Unknown [id number] 2.16.840.1.171071.3.579.2 .593 1939 Unknown [id number] 2.16.840.1.953621.3.579.2 .593 1939 Unknown [id number] 2.16.840.1.560593.3.579.2 .593 1939 Unknown [id number] 2.16.840.1.551629.3.579.2 .593 1939 Unknown [id number] 2.16.840.1.760913.3.579.2 .593 1939 Unknown [id number] 2.16.840.1.615662.3.579.2 .593 1939 Unknown [id number] 2.16.840.1.896526.3.579.2 .593 1939 Unknown [id number] 2.16.840.1.536149.3.579.2 .593 1939 Unknown [id number] 2.16.840.1.285925.3.579.2 .593 1939 Unknown [id number] 2.16.840.1.574177.3.579.2 .593 1939 Unknown [id number] 2.16.840.1.056773.3.579.2 .1259 1939 Unknown [id number] 2.16.840.1.053915.3.579.2 .1259 1939 Unknown [id number] 2.16.840.1.024175.3.579.2 .196 1939 Unknown [id number] 2.16.840.1.860029.3.579.2 .196 1939 Unknown [id number] 2.16.840.1.836793.3.579.2 .196 1939 Unknown [id number] 2.16.840.1.284139.3.579.2 .196 1939 Unknown [id number] 2.16.840.1.430267.3.579.2 .196 1939 Unknown [id number] 2.16.840.1.140765.3.579.2 .196 1939 Unknown [id number] 2.16.840.1.539526.3.579.2 .196 1939 Unknown [id number] 2.16.840.1.550334.3.579.2 .196 Social History Date Type Detail Facility Start: 05-14-2022 Tobacco smoking stat us NHIS Never smoked tobacco [facility] Start: 05-14-2022 Tobacco use and exposure Smoke less tobacco non-user [facility] Start: 05-14-2022 End: 09-21-2022 Alcohol intake Lifetime non-drinker (finding) [facility] Start: 1940 Sex Assigned At Not on file [facility] Start: 05-09-2022 End: 09-21-2022 History of Social function [facility] Start: 05-09-2022 End: 09-21-2022 Tobacco use panel [facility] Adult Depression Scr eening Assessment 2 [facility] Clinical Notes 09-30-2021 to 09-21-2022 Patient InstructionsCarolyn Vanegas MD - 09/21/2022 12:43 PM Naa Alves PA-C - 08/26/2022 11:45 AM EDTTmonika Bowman - 08/19/2022 4:06 PM EDT Note Date & Type Note Facility 09-21-2022 Note HNO ID: [id number] Author: Carolyn Vanegas MD Service: ? Author [...] Percentile 1 (more content not included)... [facility] 09-21-2022 Instructions Carolyn Vanegas MD [...] at this time. documented in this encounter [facility] 09-21-2022 History of Present illness Narrative SPINE [...] 4 - Moderate documented in this encounter [facility] 08-26-2022 Note HNO ID: [id number] Author: Kassandra Alves PA-C Service: ? Author Type: Physician [employer] Operator Type: Progress Notes Filed: 08/26/2022 11:52 AM Note Text: Per Triage: Alexa Delgado is a 82 year old female that requests evaluation of spine. Per review, they have symptoms of lower back pain. Numbness/tingling right leg. Difficulty walking. Weakness Request: 1st available Referring provider: Galina Rogers MD Patient out of state: no 2nd opinion: no Prior spine surgery: yes 2006 [facility] Address: [address] [place] [address] CMT: PT Injections Tylenol Hydrocodone Studies (Reports [...] during the appt Kassandra Alves PA-C [facility] 08-26-2022 History of Present illness Narrative Per Triage: Alexa Delgado is a 82 year old female that requests evaluation of spine. Per review, they have symptoms of lower back pain. Numbness/tingling right leg. Difficulty walking. Weakness Request: 1st available Referring provider: Galina Rogers MD Patient out of state: no 2nd opinion: no Prior spine surgery: yes 2006 [facility] Address: [address] [place] [address] CMT: PT Injections Tylenol Hydrocodone Studies (Reports [...] Health Provider or Pain Management Provider at [facility]? No If answer is YES [...] facility where the MRI/CT[facility]myelogram [facility] [facility] Address: [address] [place] [address] MRI/CT/myelogram viewable in Epic: No If not, please provide [phone] to fax in imaging reports for review. [...] physical therapy was completed PT Injection [facility] Address: [address] [place] [address] Have you tried any other kinds of [...] where the surgery was completed: 2006 [facility] Address: [address] [place] [address] Additional Comments documented in this encounter [facility] 08-19-2022 Note HNO ID: [id number] Author: Micheal Bowman Service: ? Author Type: ? Type: Progress Notes Filed: 08/26/2022 11:52 AM Note Text: Patient name: Alexa Delgado Are you being referred by a [facility] Spine Health Provider or Pain Management Provider at [facility]? No If answer is YES [...] facility where the MRI/CT/myelogram was completed: [facility] Address: [address] [place] [address] MRI/CT/myelogram viewable in Epic: No If not, please provide [phone] to fax in imaging reports for review. [...] and/or physical therapy was completed PT Injection [facility] Address: [address] [place] [address] Have you tried any other kinds of [...] of where the surgery was completed: 2006 [facility] Address: [address] [place] [address] Additional Comments [facility] 07-16-2022 Note PROCEDURE: XR HIP [...] authenticated by: HERMES MENDOZA Date: 2022-07-16 11:28 [facility] 05-14-2022 Note HNO ID: [id number] Author: Marty Dozier, DO Service: ? Author Type: Physician Type: Progress Notes Filed: 05/15/2022 10:02 PM Note Text: [facility] [place] [facility] [place] [facility] - Medical Spine Initial [...] Ratio: R>L low back Current Treatment: Medications [place] 5-325 mg BID - helps Diclofenac 75 [...] but still has pain -01/28/22 Noemi Sequeira METALLURGICAL ENGINEER: BL Lumbar erector spinae TPI (0.125% Marcaine, [...] ongoing as of 04/17/21 -03/08/21 Noemi Sequeira METALLURGICAL ENGINEER: Left rhomboid TPI (0.125% Marcaine, 40 mg Kenalog) -02/03/21 LESI - moderate relief for 4 days Prior spine surgery: -2006 L4-5 Discectomy Previously treated by: -[facility], previously Dr. [...] today. She has an evaluation at the [facility] tomorrow at the Spine Center. RECOMMENDATIONS: We will see the patient back in the office after she undergoes evaluation there to discuss her treatment plan thereafter. We will see the patient back in the office in approximately four weeks' time or sooner if needed. PMH: Lumbar scoliosis Depression on Negrita (more content not included)... [facility] 05-14-2022 History of Present illness Narrative Images from the original note were not included. [facility] [place] [facility] [place] [facility] - [facility] Spine Initial [...] Ratio: R>L low back Current Treatment: Medications [place] 5-325 mg BID - helps Diclofenac 75 [...] but still has pain -01/28/22 Noemi Sequeira METALLURGICAL ENGINEER: BL Lumbar erector spinae TPI (0.125% Marcaine, [...] ongoing as of 04/17/21 -03/08/21 Noemi Sequeira METALLURGICAL ENGINEER: Left rhomboid TPI (0.125% Marcaine, 40 mg Kenalog) -02/03/21 LESI - moderate relief for 4 days Prior spine surgery: -2006 L4-5 Discectomy Previously treated by: -[facility], previously Dr. [...] today. She has an evaluation at the [facility] tomorrow at the Spine Center. RECOMMENDATIONS: We [...] reviewed 04/04/22 CT abd/pelvis with IV contrast, [facility], report: Abdominal wall: Old healed left pelvis fractures. Degenerative changes and scoliosis of the lumbar spine. IMPRESSION: No acute abdominal pathology. No acute inflammatory process. No obstructing urinary tract stone. No evidence for bowel obstruction. 11/15/21 XR abd, [facility], report: No acute osseous abnormality. There is moderate dextrocurvature of the lumbar spine. 05/08/2021 XR right hip/pelvis, [facility], report: Rotatory dextro scoliosis of [...] TIME: 3:15 PM documented in this encounter [facility] 05-13-2022 Note CONSULTATION CONSULTATION DATE: 05/13/2022 TO: [...] mg at h.s., diclofenac 75 mg b.i.d., [place] 5 mg b.i.d. EXAM: Notable for the [...] today. She has an evaluation at the [facility] tomorrow at the Spine Center. RECOMMENDATIONS: We will see the patient back in the office after she undergoes evaluation there to discuss her treatment plan thereafter. We will see the patient back in the office in approximately four weeks' time or sooner if needed. [facility] 04-06-2022 Note CONSULTATION CONSULTATION DATE: [...] to kidney dysfunction also. The patient takes [place], however, is very controlled and limits it to the point of detriment. Education was done. The patient was instructed to take the [place] to a b.i.d. to t.i.d. basis. The [...] b.i.d. basis. The patient may increase the [place] to 5/325 t.i.d. We will schedule the [...] the procedure. CC: Galina Rogers M.D. [facility] 03-11-2022 Note CONSULTATION CONSULTATION DATE: [...] gave improvement for 24 hours. Medications include [place] 5/325 b.i.d., diclofenac 75 mg b.i.d., citalopram [...] back pain. PLAN: We will refill her [place] 5/325 b.i.d. We will prescribe her Buderer cream with gabapentin, ketorolac and prilocaine/lidocaine to be placed over her right knee. We will trial Requip 0.25 mg q.h.s. We will see the patient in the clinic in three months' time unless otherwise indicated. Patient agrees with the plan. [facility] 01-28-2022 Note CONSULTATION CONSULTATION DATE: [...] daily which decreases her pain. Medications include [place] 5/325 b.i.d., Flexeril 5 mg b.i.d., diclofenac [...] does consent to. We will refill the [place] 5/325 b.i.d. We will pre-authorize for a right genicular nerve block under fluoroscopy. Patient will follow up in the clinic thereafter. [facility] 01-28-2022 Note CONSULTATION PROCEDURE DATE: [...] be followed up in the office. [facility] 12-31-2021 Note CONSULTATION CONSULTATION DATE: [...] Current medications include diclofenac 75 mg b.i.d., [place] 5/325 b.i.d., citalopram, Flexeril and multivitamin regimen. The patient does state that she breaks her [place] in half and the most she takes [...] and would like to move forward. [facility] 09-30-2021 Note CONSULTATION CONSULTATION DATE: 09/30/2021 This is a very -mgku-wco female accompanied by her returning to the [...] Current medications include diclofenac 50 mg b.i.d., [place] 5/325 b. i.d. and Tylenol. She does [...] at 25 mg q.h.s. Refill for her [place] 5/325 b.i.d. will be sent as well. The patient is to continue with her vitamin regimen which she is currently compliant with, as well as heat application and pool exercises. The patient will be followed up in the office in three months' time unless otherwise indicated. The patient agrees with the plan of care. [facility] Evaluation note Diagnosis Chronic bilateral low back pain with right-sided sciatica- Primary Back pain, lumbosacral Lumbago Chronic sacroiliac joint pain Disorders of sacrum Lumbar spondylosis Lumbosacral spondylosis without myelopathy Scoliosis of lumbar spine, unspecified scoliosis type documented [facility] Diagnosis Spinal stenosis, lumbar region with neurogenic claudication- Primary Spondylolisthesis, lumbar region Other idiopathic scoliosis, lumbar region [facility] Diagnosis Obesity, Class I, BMI 30-34.9- Primary Obesity, unspecified Spinal stenosis, lumbar region with neurogenic claudication documented in this encounter [facility] Summary Purpose Family History No Family History [...] By Contac t Referred To Contact [facility] [place] Diagnoses Spinal stenosis, lumbar region with neurogenic claudication Procedures CONSULT TO [facility]) OFFICE/OUTPATIENT [facility] MDM 60-74 MINUTES Carolyn Vanegas MD [address] [place] [address] Referral ID Status Reason Start Date Expiration Date Visits Requested Visits Authorized [id number] Pending Review PCP Requested Referral 09/21/2022 09/21/2023 1 1 Additional Source Comments INFORMATION SOURCE (unrecogn ized section and content) DATE CREATED AUTHOR 09/13/2017 [facility] DATE CREATED AUTHOR AUTHOR'S ORGANIZ ATION 12/13/2020 [facility] DATE CREATED AUTHOR AUTHOR'S ORGANIZ ATION 07/30/2022 [facility] pital DATE CREATED AUTHOR AUTHOR'S ORGANIZ ATION 09/22/2022 [facility] DATE CREATED AUTHOR AUTHOR'S ORGANIZ ATION 08/13/2023 [facility] dical [facility] EPIC DATE CREATED AUTHOR AUTHOR'S ORGANIZ ATION 08/25/2023 [facility] DATE CREATED AUTHOR AUTHOR'S ORGANIZ ATION 10/10/2023 [facility] Source Comments (unrecognize d section and content) In the event this informatio n is protected by the Federal Confidentiality of Alcohol and Drug Abuse Patient Records regulations: The Federal rules restrict any use of the information to criminally investigate or prosecute any alcohol or drug abuse patient.[facility] the event this information is protected by the Federal Confidentiality of Alcohol and Drug Abuse Patient Records regulations: The Federal rules restrict any use of the information to criminally investigate or prosecute any alcohol or drug abuse patient.[facility] the event this information is protected by the Federal Confidentiality of Alcohol and Drug Abuse Patient Records regulations: The Federal rules restrict any use of the information to criminally investigate or prosecute any alcohol or drug abuse patient.[facility] Reason for Visit (unrecogniz ed section and content) Reason Comments New Patient Evaluation Low Back Pain Reason Comments New Patient Care Teams (unrecognized sec tion and content) Pl Sql Developer Relationship Specialty Start Date End Date Galina Rogers MD [address] [place] [phone] PCP - General Family Medicine 05/14/22 Colette De Leon Jr., DO [address] [facility] [address] [place], [place] [phone] Referring Orthopedics 05/03/22 Porsha Garcia [address] [phone] Pain Management 05/14/22 Colette De Leon Jr., DO [address] [facility] [address] [place] [address] Orthopedics 05/14/22 Pl Sql Developer Relationship Specialty Start Date End Date Galina Rogers MD [address] [place] [facility] [place] [phone] PCP - General Family Medicine 05/14/22 Colette De Leon Jr., DO [address] [place] [address] Referring Orthopedics 05/03/22 Lakshmipathy, Narendranath [address] [place] [phone] Pain Management 05/14/22 Colette De Leon Jr., DO [address] [place] [address] Orthopedics 05/14/22 Galina Rogers MD [address] [place] [facility] [place] [address] Referring Family Medicine 08/11/22 Pl Sql Developer Relationship Specialty Start Date End Date Galina Rogers MD [address] [place] [facility] [place] [phone] PCP - General Family Medicine 05/14/22 Colette De Leon Jr., DO [address] [place] [address] Referring Orthopedics 05/03/22 Tereshmipathy, Narendranath [address] [place] [address] [place] [address], [place] [phone] Pain Management 05/14/22 Colette De Leon Jr., DO [address] [place] [address] Orthopedics 05/14/22 Galina Rogers MD [address] [place] [phone] Referring Family Medicine 08/11/22 FOR RECORDS PERTAINING [...] BE BASED ON THE PRIMARY CLINICAL RECORDS. [employer] [facility]. provides no warranty or guarantee of the accuracy or completeness of information in this document.
[2023-10-21 16:19] LABS: Basophils Percent Auto 0.3 % (0.2-2.0); Eosinophils Percent Auto 0.7 % (0.9-7.0); Hematocrit 34.8 % (36.0-48.0); Hemoglobin 11.9 g/dL (12.0-16.0); Immature Granulocytes Abs Auto 0.03 10^3/uL (0.00-0.03); Immature Granulocytes Pct Auto 0.5 % (0.0-0.5); Lymphocytes Absolute Auto 0.6 10^3/uL (1.2-3.8); Lymphocytes Percent Auto 10.5 % (20.5-60.0); Mean Corpuscular HGB Conc 34.2 g/dL (29.9-35.2); Mean Corpuscular Hemoglobin 32.5 pg (26.7-34.0); Mean Corpuscular Volume 95.1 fL (81.0-99.0); Mean Platelet Volume 8.7 fL (9.5-13.5); Monocytes Absolute Auto 0.8 10^3/uL (0.3-0.8); Monocytes Percent Auto 12.7 % (1.7-12.0); Neutrophils Absolute Auto 4.6 10^3/uL (1.4-6.5); Neutrophils Percent Auto 75.3 % (43.0-75.0); Platelet Count 257 10^3/uL (150-450); Red Blood Count 3.66 10^6/uL (4.20-5.40); Red Cell Distribution Width 13.1 % (11.0-15.0); White Blood Count 6.1 10^3/uL (4.0-11.0)
[2023-10-21 16:34] LABS: Partial Thromboplastin Time 22.7 sec (22.3-36.2); Prothrombin Time 9.8 sec (9.0-11.6)
[2023-10-21 16:41] LABS: INR <0.93
== END 2023-10-21 15:54 | disposition home or self-care (01) ==
LOC: LAB 15:59
PROVIDERS: PCP Family Medicine; Visit Provider Family Medicine
DX: R23.3 Spontaneous ecchymoses (principal)
CPT/HCPCS: 36415; 85025; 85610; 85730

== ENCOUNTER 2023-10-25 07:48 | Outpatient (OUT) | payer MEDICARE, SELFPAY ==
--- NOTE | 2023-10-25 07:15 | NM_ITS ---
Patient Name: KARINA CORMIER MR#: [id number] : 1940 Exam Date: 10/25/2023 Ordering Doctor: DR Luis Rogers . RADIOLOGY REPORT PROCEDURE: NM JOHNNA PERF SPECT REST STR COMPARISON: None. INDICATIONS: CHEST PAIN TECHNIQUE: Exam Description: Stress/Rest one day protocol gated SPECT Rest Imagin.9 mCi Tc-99m Cardiolite IV on 10/25/2023 Stress Imaging 29.4 mCi Tc-99m Cardiolite IV on 10/25/2023 Exercise Protocol: 0.4 mg Lexiscan given IV Heart Rate (bpm): Rest: 72 Max: 104 PMHR: 76 Blood Pressure: Rest: 130/72 Max: 148/88 Symptoms: Rest and peak stress ECG findings were normal and the exercise portion of the study was normal per attending physician Dr. Castañeda . For more details please see separate cardiac stress test report. FINDINGS: QUALITY OF STUDY: Excellent. PERFUSION DEFECT: None. LOCATION: N/A SIZE: N/A. SEVERITY: N/A. TYPE: N/A. WALL MOTION: LV SIZE: Normal. 65 mL. TID / TCD: None; 0.8 LVEF: Normal. Calculated EF 72%. SUMMARY: Myocardial perfusion imaging study is NORMAL. CONCLUSION: 1. Normal nuclear medicine myocardial perfusion scan. Dictated by: Erick Mullen M.D. on 10/25/2023 at 15:46 Approved by: Erick Mullen M.D. on 10/25/2023 at 15:47
--- OUTSIDE RECORDS SUMMARY | 2023-10-25 08:01 | XMS_ITS | CCD ---
Author Organization [facility] Care Team Providers Care Allergy Nurse Name Role Phone PHYSICIAN, DEFAULT Unavailable Unavailable PHYSICIAN, DEFAULT Unavailable Unavailable Haley Matos DO, George Cajetan Unavailable Galina Rogers MD Primary Care Provider Lakshmipathy, Narendranath Unavailable [phone] Haley Matos DO, George Cajeaydee Unavailable ESTELA [...] NIKO Austin Attending Unavailable BECKWITH ., DR NIOK Austin Consulting Unavailable BECKWITH ., DR NIKO [...] Unavailable HOY ., DR MOJICA Consulting Unavailable NEW HUDSON, DR HERMES Jean Baptiste Consulting Unavailable LATANYA [...] Codeine; Translations: [CODEINE] Drug Allergy 3 Unknown [facility] (4 sources) Penicillins; Translations: [PENICILLINS] Drug Allergy 3 Unknown [facility] (4 sources) pregabalin; Translations: [PREGABALIN] Drug Allergy 3 Intolerance [facility] Work Phone: (4 sources) Propoxyphene; Translations: [PROPOXYPHENE] Drug Allergy 3 Rash, Unknown [facility] (4 sources) quiNINE; Translations: [QUINAMM] Drug Allergy 3 GI Upset [facility] (5 sources) Decongest Multi-Action; Translations: [Decongest Multi-Action] Drug Allergy 3 Other: See Comments [facility] (1 source) Acetaminophen / HYDROcodone Drug Allergy [facility] Repository (2 sources) Codeine Drug Allergy 3 [facility] Repository (1 source) Fluconazole Drug Allergy [facility] Repository (2 sources) Penicillins Drug allergy (disorder) 3 [facility] Repository (1 source) pregabalin Drug Allergy [facility] Repository (2 sources) Propoxyphene Drug Allergy [facility] Repository (1 source) quiNINE Drug Allergy [facility] Repository Medications Completed/Discontinued Medications Medication [...] Comment on above: Take 1 tablet by [facility] twice daily as needed. aspirin 81 mg [...] above: Take by mouth twice daily. 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; Translations: [OTH [facility] CURRENT DRUG THERAPY] Onset: 04-06-2022 Episodic Other [...] Test Name Value Interpretation Reference Range Facility [facility] 08-18-2023 L Specimen: [id number] Received: 08/22/23 Status: SOUT Req Num: [id number] Spec Type: Impression Subm Dr: Galina Rogers MD Tissues: PATHPER Procedures: PATHREVIEW Age/ Patient Sex Location Account Attending Physician Alexa Delgado 83/F LABELL [id number] Galina Rogers MD SPEC NUM: [id number] RECD: 08/22/23 STATUS: SOUT REQ NUM: [id number] JANET: 08/18/[address]: Galina Rogers MD ENTERED: 08/22/23-1058 [facility] DR: Annie Rivas SPEC TYPE: Impression DEPT: SHELLIE Simmons ENTERED BY: [id number] RECV BY: [id number] ORDERED: PATHREVIEW ORDERED: PATHREVIEW Pathologist Review Abnormal [...] initial report for the needed correction CPT: 17687 ---- ---- Specimen: [id number] Received: 08/22/23 Status: SOUAinsley Rejose Num: [id number] Spec Type: Impression Subm Dr: Galina Rogers MD Tissues: PATHPER Procedures: PATHREVIEW ---- Patient: Alexa Delgado [id number] (Continued) ---- Signed (signature on file) [place] Abdul MD 08/24/23918 [place] [facility] (NS[facility] ) ALEXA DELGADO ([id number]) 1940 F Date Time Provider Department 09/21/22 [...] Percentile 2 (more content not included)... Normal [facility] XR LSPINE 2_3 VIEWSon 2022 XR [...] by: HERMES MENDOZA Date: 2022-07-16 11:34 Normal [facility] CNOVon 05-14-2022 CNOV Office Visit (SPMESH ) ALXEA DELGADO ([id number]) 1940 F Date Time Provider Department 05/14/22 2:30 PM MARTY DOZIER During your visit today, we recorded the following information about you: Pulse Blood pressure Weight Height 72/minute 158/87 76.4 kg 1.524 m Marty Dozier DO 05/15/2022 10:02 PM Signed [facility] - Medical [...] Ratio: R>L low back Current Treatment: Medications Mendon 5-325 mg BID - helps Diclofenac 75 [...] but still has pain -01/28/22 Noemi Sequeira MANAGER STORE: BL Lumbar erector spinae TPI (0.125% Marcaine, [...] ongoing as of 04/17/21 -03/08/21 Noemi Sequeira MANAGER STORE: Left rhomboid TPI (0.125% Marcaine, 40 mg Kenalog) -02/03/21 LESI - moderate relief for 4 days Prior spine surgery: -2006 L4-5 Discectomy Previously treated by: -[facility], previously Dr. [...] today. She has an evaluation at the [facility] tomorrow at the [facility]. RECOMMENDATIONS: We will see the pat (more content not included)... Normal [facility] CULTURE URINEon 04-05-2022 CULTURE URINE Culture Observations : LIGHT GROWTH OF MIXED GENITAL ALANIS. NO POTENTIAL PATHOGENS SEEN. Normal [facility] Comment on above: Performed By: #### U RCX ####[facility] [address] [place], [place] [address]Nc. Grace Abdul UA RANDOM W/MICROSCOPICon BACTERIA NONE SEEN Normal NONE SEEN [facility] Comment on above: Performed By: #### U AMIC ####[facility] [address] [place] [address]Dr. Grace Abdul Bilirubin Ql (U) Negative Normal NEGATIVE [facility] Comment on above: Performed By: #### U AMIC ####[facility] [address] [place] [address]Dr. Grace Abdul CAST NONE SEEN Normal NONE SEEN [facility] Comment on above: Performed By: #### U AMIC ####[facility] [address] [place], [place] [address]Dr. Grace Abdul Clarity (U) CLEAR Normal CLEAR [facility] Comment on above: Performed By: #### U AMIC ####[facility] [address] [place], [place] [address]Dr. Grace Abdul Color (U) YELLOW Normal YELLOW [facility] Comment on above: Performed By: #### U AMIC ####[facility] [address] [place], [place] [address]Dr. Grace Abdul Crystals LM Nom (Urine sed) NONE SEEN Normal NONE SEEN [facility] Comment on above: Performed By: #### U AMIC ####[facility] [address] [place], [place] [address]Dr. Grace Abdul Epithelial cells LM Ql (Urine sed) RARE Normal NONE SEEN /RARE [facility] Comment on above: Performed By: #### U AMIC ####[facility] [address] [place], [place] [address]Dr. Grace Abdul Glucose Ql (U) Negative Normal NEGATIVE [facility] Comment on above: Performed By: #### U AMIC ####[facility] Cx[address] [place], [place] [address]Dr. Grace Abdul Hemoglobin Ql (U) MODERATE Abnormal NEGATIVE [facility] Comment on above: Performed By: #### U AMIC ####[facility] [address] [place], [place] [address]Dr. Grace Abdul Ketones Ql (U) TRACE Abnormal NEGATIVE [facility] Comment on above: Performed By: #### U AMIC ####[facility] [address] [place], [place] [address]Dr. Grace Abdul LEUKOCYTES TRACE Abnormal NEGATIVE [facility] Comment on above: Performed By: #### U AMIC ####[facility] [address] [place] [address]Dr. Grace Abdul MUCOUS NONE SEEN Normal NONE SEEN [facility] Comment on above: Performed By: #### U AMIC ####[facility] [address] [place] [address]Dr. Benitalee ann Abdul Nitrite Ql (U) Negative Normal NEGATIVE [facility] Comment on above: Performed By: #### U AMIC ####[facility] [address] [place] [address]Dr. Benitalee ann Abdul pH (U) 5.0 [pH] Normal 5-9 [facility] Comment on above: Performed By: #### U AMIC ####[facility] [address] [place] [address]Dr. Grace Abdul RBC 0-2 Normal 0-2 [facility] Comment on above: Performed By: #### U AMIC ####[facility] [address] [place], [place] [address]Dr. Grace Abdul SPEC GRAVITY 1.015 Normal 1.005-<=1.025 [facility] Comment on above: Performed By: #### U AMIC ####[facility] [address] [place] [address]Dr. Grace Abdul UA PROTEIN Negative Normal NEGATIVE/ TRACE [facility] Comment on above: Performed By: #### U AMIC ####[facility] [address] [place] [address]Dr. Benitalee ann Abdul Urobilinogen Qn (U) 0.2 {Ashley'U}/dL Normal 0.2 - 1. 0 [facility] Comment on above: Performed By: #### U AMIC ####[facility] [address] [place], [place] [address]Dr. Grace Abdul WBC 0-2 Abnormal NONE SEEN [facility] Comment on above: Performed By: #### U AMIC ####[facility] [address] [place], [place] [address]Dr. Grace Abdul CBC AUTO DIFFon 04-04-2022 BASO # 0.0 103/ul Normal 0.0-0.1 [facility] Comment on above: Performed By: #### C BC ####[facility] [address] [place] [address]Dr. Grace Abdul Basophils/100 WBC (Bld) 0.4 % Normal 0.2-2.0 [facility] Comment on above: Performed By: #### C BC ####[facility] [address] [place] [address]Dr. Grace Franko EO # 0.1 103/ul Normal 0.0-0.7 [facility] Comment on above: Performed By: #### C BC ####[facility] [address] [place] [address]Dr. Grace Franko Eosinophils/100 WBC (Bld) 1.3 % Normal 0.9-7.0 [facility] Comment on above: Performed By: #### C BC ####[facility] [address] [place] [address]Dr. Grace Abdul Erythrocyte distribution width (RBC) [Ratio] 13.7 % Normal 11.0-15.0 [facility] Comment on above: Performed By: #### C BC ####[facility] [address] [place] [address]Dr. Grace Abdul Hematocrit (Bld) [Volume fraction] 37.2 % Normal 36.0-48.0 [facility] Comment on above: Performed By: #### C BC ####[facility] [address] [place] [address]Dr. Grace Abdul Hemoglobin (Bld) [Mass/Vol] 12.4 g/dL Normal 12.0-16.0 [facility] Comment on above: Performed By: #### C BC ####[facility] [address] [place] [address]Dr. Grace Franko IG # 0.02 10e3/ul Normal 0.00-0.03 [facility] Comment on above: Performed By: #### C BC ####[facility] [address] [place] [address]Dr. Grace Abdul IG % 0.4 % Normal 0.0-0.5 [facility] Comment on above: Performed By: #### C BC ####[facility] [address] [place], [place] [address]Ji. Grace Abdul LYMPH # 0.8 103/ul Critically low 1.2-3.8 [facility] Comment on above: Performed By: #### C BC ####[facility] [address] [place] [address]Dr. Grace Abdul Lymphocytes/100 WBC (Bld) 13.9 % Critically low 20.5-60.0 [facility] Comment on above: Performed By: #### C BC ####[facility] [address] [place] [address]Dr. Grace Abdul MANUAL DIFF REQ NO Normal [facility] Comment on above: Performed By: #### C BC ####[facility] [address] [place] [address]Dr. Grace Abdul MCH (RBC) [Entitic mass] 30.5 pg Normal 26.7-34.0 [facility] Comment on above: Performed By: #### C BC ####[facility] [address] [place] [address]Dr. Grace Abdul MCHC (RBC) [Mass/Vol] 33.3 g/dL Normal 29.9-35.2 [facility] Comment on above: Performed By: #### C BC ####[facility] [address] [place] [address]Dr. Grace Abdul MCV (RBC) [Entitic vol] 91.4 fL Normal 81.0-99.0 [facility] Comment on above: Performed By: #### C BC ####[facility] [address] [place] [address]Dr. Grace Abdul MONO # 0.7 103/ul Normal 0.3-0.8 [facility] Comment on above: Performed By: #### C BC ####[facility] [address] [place] [address]Dr. Grace Abdul Monocytes/100 WBC (Bld) 13.5 % Critically high 1.7-12.0 [facility] Comment on above: Performed By: #### C BC ####[facility] [address] [place] [address]Dr. Grace Abdul NEUT # 3.8 103/ul Normal 1.4-6.5 [facility] Comment on above: Performed By: #### C BC ####[facility] [address] [place] [address]Dr. Grace Abdul Neutrophils/100 WBC (Bld) 70.5 % Normal 43.0-75.0 [facility] Comment on above: Performed By: #### C BC ####[facility] [address] [place] [address]Dr. Grace Abdul Platelet mean volume (Bld) [Entitic vol] 9.0 fL Critically low 9.5-13.5 [facility] Comment on above: Performed By: #### C BC ####[facility] [address] [place] [address]Dr. Grace Abdul PLT 283 103/ul Normal 150-450 [facility] Comment on above: Performed By: #### C BC ####[facility] [address] [place] [address]Dr. Grace Abdul RBC 4.07 106/ul Critically low 4.20-5.40 [facility] Comment on above: Performed By: #### C BC ####[facility] [address] [place], [place] [address]Dr. Grace Abdul WBC 5.4 103/ul Normal 4.0-11.0 [facility] Comment on above: Performed By: #### C BC ####[facility] [address] [place] [address]Dr. Grace Abdul CT ABD/PELV W CONon 04-04-19 [...] Date: 2022-04-04 16:59 Normal [facility] ER URINE PROFILEon 3 Bilirubin Ql (U) Negative Normal NEGATIVE [facility] Comment on above: Performed By: #### ROBERT FELDER ####[facility] [address] [place], [place] [address]Zv. Grace Abdul Clarity (U) CLEAR Normal CLEAR [facility] Comment on above: Performed By: #### ROBERT FELDER ####[facility] [address] [place], [place] [address]HjLisette Abdul Color (U) LT. YELLOW Normal YELLOW [facility] Comment on above: Performed By: #### ROBERT FELDER ####[facility] [address] [place] [address]Dr. Grace HIGGINS A micrscopic examination will be performed if indicated. Normal [facility] Comment on above: Performed By: #### ROBERT FELDER ####[facility] [address] [place] [address]Dr. Grace Abdul Glucose Ql (U) Negative Normal NEGATIVE [facility] Comment on above: Performed By: #### ROBERT FELDER ####[facility] [address] [place] [address]Dr. Grace Abdul Hemoglobin Ql (U) SMALL Abnormal NEGATIVE [facility] Comment on above: Performed By: #### ROBERT FELDER ####[facility] [address] [place] [address]Dr. Grace Abdul Ketones Ql (U) Negative Normal NEGATIVE [facility] Comment on above: Performed By: #### ROBERT FELDER ####[facility] [address] [place], [place] [address]Dr. Grace Abdul LEUKOCYTES TRACE Abnormal NEGATIVE [facility] Comment on above: Performed By: #### ROBERT FELDER ####[facility] [address] [place], [place] [address]Dr. Grace Abdul Nitrite Ql (U) Negative Normal NEGATIVE [facility] Comment on above: Performed By: #### ROBERT FELDER ####[facility] [address] [place] [address]Dr. Grace Abdul pH (U) 7.5 [pH] Normal 5-9 [facility] Comment on above: Performed By: #### ROBERT FELDER ####[facility] [address] [place], [place] [address]Dr. Grace Abdul SPEC GRAVITY 1.005 Normal 1.005-<=1.025 [facility] Comment on above: Performed By: #### ROBERT FELDER ####[facility] [address] [place], [place] [address]Dr. Grace Abdul UA PROTEIN Negative Normal NEGATIVE/ TRACE [facility] Comment on above: Performed By: #### ROBERT FELDER ####[facility] [address] [place] [address]Dr. Grcae Abdul UR MICRO IND INDICATED Normal [facility] Comment on above: Performed By: #### ROBERT FELDER ####[facility] [address] [place] [address]Dr. Grace Abdul Urobilinogen Qn (U) 0.2 {Ashley'U}/dL Normal 0.2 - 1. 0 [facility] Comment on above: Performed By: #### ROBERT FELDER ####[facility] [address] [place], [place] [address]Dr. Grace Abdul LIPASEon 04-04-2022 Lipase [Catalytic activity/Vol] 115.0 U/L Normal 73.0-393.0 [facility] Comment on above: Performed By: #### C JOETB #### [facility] [address] [place] [address] Dr. Grace Abdlu PROF 14(COMP METB)on 023 Albumin [Mass/Vol] 3.6 g/dL Normal 3.4-5.0 [facility] Comment on above: Performed By: #### Lakia DIAZTBH #### [facility] [address] [place] [address] Dr. Grace Abdul Albumin/Globulin [Mass ratio] 1.1 {ratio} Normal [facility] Comment on above: Performed By: #### C VDTBH #### [facility] [address] [place] [address] Dr. Grace Abdul ALP [Catalytic activity/Vol] 74 U/L Normal 46-116 [facility] Comment on above: Performed By: #### C VDTBH #### [facility] [address] [place] [address] Dr. Grace Abdul ALT [Catalytic activity/Vol] 23 U/L Normal 14-59 [facility] Comment on above: Performed By: #### C VDTBH #### [facility] [address] [place] [address] [address] Grace Abdul Anion gap [Moles/Vol] 12.1 mmol/L Normal [facility] Comment on above: Performed By: #### C VDTBH #### [facility] [address] [place] [address] [address] Grace Abdul AST [Catalytic activity/Vol] 21 U/L Normal 15-37 [facility] Comment on above: Performed By: #### C VDTBH #### [facility] [address] [place] [address] [address] Grace Abdul Bilirubin [Mass/Vol] 0.2 mg/dL Normal 0.2-1.0 [facility] Comment on above: Performed By: #### C VDTBH #### [facility] [address] [place] [address] Dr. Grace Abdul Calcium [Mass/Vol] 9.3 mg/dL Normal 8.5-10.1 [facility] Comment on above: Performed By: #### C VDTBH #### [facility] [address] [place] [address] Dr. Grace Abdul Chloride [Moles/Vol] 99 mmol/L Normal 98-107 [facility] Comment on above: Performed By: #### C VDTBH #### [facility] [address] [place] [address] Dr. Grace Abdul CO2 [Moles/Vol] 31.2 mmol/L Normal 21.0-32.0 [facility] Comment on above: Performed By: #### C VDTBH #### [facility] [address] [place] [address] Dr. Grace Abdul Creatinine [Mass/Vol] 1.22 mg/dL Critically high 0.55-1.02 [facility] Comment on above: Performed By: #### C VDTBH #### [facility] [address] [address] [address] Grace Abdul EGFR-AF MALIAN 51 mL/min/1.73m2 Critically low >=60 [facility] Comment on above: Performed By: #### C VDTBH #### [facility] [address] [address] [address] Grace Abdul EGFR-NON AF MALIAN 42 mL/min/1.73m2 Critically low >=60 [facility] Comment on above: Performed By: #### C VDTBH #### [facility] [address] [place] [address] [address] Grace Abdul Globulin (S) [Mass/Vol] 3.3 g/dL Normal [facility] Comment on above: Performed By: #### C VDTBH #### [facility] [address] [address] [address] Grace Abdul Glucose [Mass/Vol] 115 mg/dL Critically high 74-106 [facility] Comment on above: Performed By: #### C VDTBH #### [facility] [address] [place] [address] Dr. Grace Abdul Potassium [Moles/Vol] 3.3 mmol/L Critically low 3.5-5.1 [facility] Comment on above: Performed By: #### C VDTBH #### [facility] [address] [address] [address] Grace Abdul Protein [Mass/Vol] 6.9 g/dL Normal 6.4-8.2 [facility] Comment on above: Performed By: #### C VDTBH #### [facility] [address] [address] [address] Grace Abdul Sodium [Moles/Vol] 139 mmol/L Normal 136-145 [facility] Comment on above: Performed By: #### C VDTBH #### [facility] [address] [address] [address] Grace Abdul Urea nitrogen [Mass/Vol] 23.0 mg/dL Critically high 7.0-18.0 [facility] Comment on above: Performed By: #### C VDTBH #### [facility] [address] [address] [address] Grace Abdul Urea nitrogen/Creatinine [Mass ratio] 18.9 mg/mg Normal [facility] Comment on above: Performed By: #### C VDTBH #### [facility] [address] [address] [address] Grace Abdul URINE MICROSCOPIC ONLYon BACTERIA NONE SEEN Normal NONE SEEN [facility] Comment on above: Performed By: #### Anthony ELLISON UMICRO ####[facility] [address] [place] [address]Dr. Grace Abdul Bacteria identified Cx Nom (U) NOT INDICATED Normal [facility] Comment on above: Performed By: #### Anthony ELLISON UMICRO ####[facility] [address] [place] [address]Dr. Grace Abdul CAST NONE SEEN Normal NONE SEEN [facility] Comment on above: Performed By: #### Anthony ELLISON UMICRO ####[facility] [address] [place] [address]Dr. Grace Abdul Crystals LM Nom (Urine sed) NONE SEEN Normal NONE SEEN [facility] Comment on above: Performed By: #### Anthony ELLISON UMICRO ####[facility] [address]vrddhhnn[address] [place] [address]Dr. Grace Abdul Epithelial cells LM Ql (Urine sed) RARE Normal NONE SEEN /RARE [facility] Comment on above: Performed By: #### Anthony ELLISON UMICRO ####[facility] Olhjgvmd[address] [place] [address]Dr. Grace Abdul MUCOUS NONE SEEN Normal NONE SEEN [facility] Comment on above: Performed By: #### Anthony ELLISON UMICRO ####[facility] On[address] [place] [address]Dr. Grace Abdul RBC 0-2 Normal 0-2 [facility] Comment on above: Performed By: #### GINA FELDERRO ####[facility] Zoqm[address] [place] [address]Dr. Grace Abdul WBC 0-2 Abnormal NONE SEEN [facility] Comment on above: Performed By: #### GINA FELDERRO ####[facility] [address] [place], [place] [address]DrLisette Abdul BNPon 12-11-2021 Natriuretic peptide B (Bld) [Mass/Vol] 665.0 pg/mL Normal <=1,800.0 [facility] Comment on above: Performed By: #### B MP #### [facility] Laboratory [address] [place], [place] [address] Dr. Grace Abdul CBC AUTO DIFFon 12-11-2021 BASO # 0.0 103/ul Normal 0.0-0.1 [facility] Comment on above: Performed By: #### C BC ####[facility] [address] [place] [address]DrLisette Abdul Basophils/100 WBC (Bld) 0.5 % Normal 0.2-2.0 [facility] Comment on above: Performed By: #### C BC ####[facility] Zbumvzivgd48[address] [place] [address]DrLisette Abdul EO # 0.1 103/ul Normal 0.0-0.7 [facility] Comment on above: Performed By: #### C BC ####[facility] Dxyomrcipl[address] [place] [address]Dr. Grace Abdul Eosinophils/100 WBC (Bld) 1.9 % Normal 0.9-7.0 [facility] Comment on above: Performed By: #### C BC ####[facility] [address]ayrizhp[address] [place] [address]DrLisette Abdul Erythrocyte distribution width (RBC) [Ratio] 13.4 % Normal 11.0-15.0 [facility] Comment on above: Performed By: #### C BC ####[facility] Klbkdjjwnu87[address] [place] [address]DrLisette Abdul Hematocrit (Bld) [Volume fraction] 36.2 % Normal 36.0-48.0 [facility] Comment on above: Performed By: #### C BC ####[facility] Qraudalzvg2338 [place] [address]DrLisette Abdul Hemoglobin (Bld) [Mass/Vol] 11.9 g/dL Critically low 12.0-16.0 [facility] Comment on above: Performed By: #### C BC ####[facility] [address]oztpqfoan[address] [place] [address]Dr. Grace Abdul IG # 0.01 10e3/ul Normal 0.00-0.03 [facility] Comment on above: Performed By: #### C BC ####[facility] Xmjdiv[address]xyc[address] [place] [address]Dr. Grace Abdul IG % 0.2 % Normal 0.0-0.5 [facility] Comment on above: Performed By: #### C BC ####[facility] [address]eau[address] [place] [address]Dr. Grace Abdul LYMPH # 0.5 103/ul Critically low 1.2-3.8 [facility] Comment on above: Performed By: #### C BC ####[facility] Ehtbs[address]jrlq[address] [place] [address]DrLisette Abdul Lymphocytes/100 WBC (Bld) 11.5 % Critically low 20.5-60.0 [facility] Comment on above: Performed By: #### C BC ####[facility] [address]nske[address] [place] [address]DrLisette Abdul MANUAL DIFF REQ NO Normal [facility] Comment on above: Performed By: #### C BC ####[facility] [address]hgjerudu[address] [place] [address]Dr. Grace Abdul MCH (RBC) [Entitic mass] 31.6 pg Normal 26.7-34.0 [facility] Comment on above: Performed By: #### C BC ####[facility] [address]lcawumpq[address] [place] [address]Dr. Grace Abdul MCHC (RBC) [Mass/Vol] 32.9 g/dL Normal 29.9-35.2 [facility] Comment on above: Performed By: #### C BC ####[facility] [address]xt[address] [place] [address]Dr. Grace Abdul MCV (RBC) [Entitic vol] 96.0 fL Normal 81.0-99.0 [facility] Comment on above: Performed By: #### C BC ####[facility] [address] [place] [id number]. Grace Abdul MONO # 0.6 103/ul Normal 0.3-0.8 [facility] Comment on above: Performed By: #### C BC ####[facility] [address]xt[address] [place] [address]Dr. Grace Abdul Monocytes/100 WBC (Bld) 14.4 % Critically high 1.7-12.0 [facility] Comment on above: Performed By: #### C BC ####[facility] [address]sef[address] [place] [address]Dr. Grace Abdul NEUT # 3.0 103/ul Normal 1.4-6.5 [facility] Comment on above: Performed By: #### C BC ####[facility] [address]ce[address] [place] [address]Dr. Grace Abdul Neutrophils/100 WBC (Bld) 71.5 % Normal 43.0-75.0 [facility] Comment on above: Performed By: #### C BC ####[facility] Ch[address]sovbs[address] [place] [address]Dr. Grace Abdul Platelet mean volume (Bld) [Entitic vol] 9.2 fL Critically low 9.5-13.5 [facility] Comment on above: Performed By: #### C BC ####[facility] [address]mtv[address] [place] [address]Dr. Grace Abdul PLT 290 103/ul Normal 150-450 [facility] Comment on above: Performed By: #### C BC ####[facility] [address]vpeyiaaxl[address] [place] [address]Dr. Grace Abdul RBC 3.77 106/ul Critically low 4.20-5.40 [facility] Comment on above: Performed By: #### C BC ####[facility] [address]xs[address]ng[address] [place] [address]Dr. Grace Abdul WBC 4.2 103/ul Normal 4.0-11.0 [facility] Comment on above: Performed By: #### C BC ####[facility] [address]veqtj[address] [place] [address]DrLisette Abdul FREE THYROXINE INDEX T7on FTI 2.63 Normal 1.30-4.50 [facility] Comment on above: Performed By: #### B MP #### [facility] Laboratory [address] [place] [address] [address] Grace Abdul T3U 35.0 % Normal 30.0-39.0 [facility] Comment on above: Performed By: #### B MP #### [facility] [address] [place] [address] [address] Grace Abdul T4 [Mass/Vol] 7.50 ug/dL Normal 4.80-13.90 [facility] Comment on above: Performed By: #### B MP #### [facility] [address] [place] [address] [address] Grace Abdul GLYCOHEMOGLOBIN A1Con 2021 ADA RECOMMENDATION SEE BELOW Normal [facility] Comment on above: Result Comment: ADA RECOMMENDED LIMIT 4.0 - 6.0 ADA THERAPEUTIC TARGET < 7.0 ACTION SUGGESTED > 7.0 Performed By: #### A 1C ####[facility] [address] [place], [place] [address]DrLisette Abdul Glucose [Mass/Vol] 111 mg/dL Normal [facility] Comment on above: Performed By: #### A 1C ####[facility] [address] [place] [address]DrLisette Abdul HbA1c (Bld) [Mass fraction] 5.5 % Normal 4.5-6.2 [facility] Comment on above: Performed By: #### A 1C ####[facility] [address]prxzu[address] [place] [address]DrLisette Abdul IRONon 12-11-2021 Iron [Mass/Vol] 50.0 ug/dL Normal 50.0-170.0 [facility] Comment on above: Performed By: #### I KASANDRA WEBSTER, VITB12 ####[facility] [address] [place] [address]Dr. Grace Abdul LIPID PROFILEon 12-11-2021 CHOL-HDL RATIO NORM SEE BELOW Normal [facility] Comment on above: Result Comment: 3.3 - 4.4 LOW RISK 4.4 - 7.1 AVERAGE RISK 7.1 - 11.0 MODERATE RISK >11.0 HIGH RISK Performed By: #### B MP #### [facility] Laboratory [address] [place] [address] [address] Grace Abdul Cholesterol [Mass/Vol] 182 mg/dL Normal <=200 [facility] Comment on above: Performed By: #### B MP #### [facility] [address] [place] [address] [address] Grace Abdul Cholesterol in HDL [Mass/Vol] 60 mg/dL Normal 40-60 [facility] Comment on above: Performed By: #### B MP #### [facility] Laboratory [address] [place] [address] [address] Grace Abdul Cholesterol in LDL [Mass/Vol] 101.2 mg/dL Normal [facility] Comment on above: Performed By: #### B MP #### [facility] [address] [place] [address] [address] Grace Abdul Cholesterol.total/Ch olesterol in HDL [Mass ratio] 3.0 {ratio} Normal [facility] Comment on above: Performed By: #### B MP #### [facility] [address] [place] [address] [address] Grace Abdul HDL NORMAL > or = 60 mg/dl - LO W CARDIOVASCULAR RISK <40 mg/dl - HIGH CARDIOVASCULAR RISK Normal [facility] Comment on above: Performed By: #### B MP #### [facility] Laboratory [address] [place] [address] [address] Grace Abdul LDL CALC NORMAL SEE BELOW Normal [facility] Comment on above: Result Comment: <100 mg/dl OPTIMAL 100 - 129 mg/dl NEAR OR ABOVE OPTIMAL 130 - 159 mg/dl BORDERLINE HIGH 160 - 189 mg/dl HIGH >190 mg/dl VERY HIGH Performed By: #### B MP #### [facility] [address] [place] [address] [address] Grace Abdul Triglyceride [Mass/Vol] 104 mg/dL Normal <=150 [facility] Comment on above: Performed By: #### B MP #### [facility] Laboratory [address] [place] [address] Dr. Grace Abdul VLDL CALC 20.8 mg/dL Normal [facility] Comment on above: Performed By: #### B MP #### [facility] [address] [place] [address] Dr. Grace Abdul PROF 14(COMP METB)on 022 Albumin [Mass/Vol] 3.5 g/dL Normal 3.4-5.0 [facility] Comment on above: Performed By: #### B MP #### [facility] [address] [place] [address] Dr. Grace Abdul Albumin/Globulin [Mass ratio] 1.0 {ratio} Normal [facility] Comment on above: Performed By: #### B MP #### [facility] [address] [place] [address] Dr. Grace Abdul ALP [Catalytic activity/Vol] 55 U/L Normal 46-116 [facility] Comment on above: Performed By: #### B MP #### [facility] [address] [place] [address] Dr. Grace Abdul ALT [Catalytic activity/Vol] 21 U/L Normal 14-59 [facility] Comment on above: Performed By: #### B MP #### [facility] [address] [place] [address] Dr. Grace Abdul Anion gap [Moles/Vol] 9.3 mmol/L Normal [facility] Comment on above: Performed By: #### B MP #### [facility] [address] [place] [address] Dr. Grace Abdul AST [Catalytic activity/Vol] 21 U/L Normal 15-37 [facility] Comment on above: Performed By: #### B MP #### [facility] [address] [place] [address] Dr. Grace Abdul Bilirubin [Mass/Vol] 0.3 mg/dL Normal 0.2-1.0 [facility] Comment on above: Performed By: #### B MP #### [facility] [address] [place] [address] [address] Grace Abdul Calcium [Mass/Vol] 9.5 mg/dL Normal 8.5-10.1 [facility] Comment on above: Performed By: #### B MP #### [facility] [address] [place] [address] [address] Grace Abdul Chloride [Moles/Vol] 102 mmol/L Normal 98-107 [facility] Comment on above: Performed By: #### B MP #### [facility] [address] [place] [address] [address] Grace Abdul CO2 [Moles/Vol] 28.5 mmol/L Normal 21.0-32.0 [facility] Comment on above: Performed By: #### B MP #### [facility] [address] [place] [address] [address] Grace Abdul Creatinine [Mass/Vol] 1.04 mg/dL Critically high 0.55-1.02 [facility] Comment on above: Performed By: #### B MP #### [facility] [address] [place] [address] [address] Grace Abdul EGFR-AF MALIAN >60 Normal >=60 [facility] Comment on above: Performed By: #### B MP #### [facility] [address] [place] [address] [address] Grace Abdul EGFR-NON AF MALIAN 51 mL/min/1.73m2 Critically low >=60 [facility] Comment on above: Performed By: #### B MP #### [facility] [address] [place] [address] [address] Grace Abdul Globulin (S) [Mass/Vol] 3.5 g/dL Normal [facility] Comment on above: Performed By: #### B MP #### [facility] [address] [place] [address] [address] Grace Abdul Glucose [Mass/Vol] 102 mg/dL Normal 74-106 [facility] Comment on above: Performed By: #### B MP #### [facility] [address] [place] [address] [address] Grace Abdul Potassium [Moles/Vol] 3.8 mmol/L Normal 3.5-5.1 [facility] Comment on above: Performed By: #### B MP #### [facility] [address] [place] [address] [address] Grace Abdul Protein [Mass/Vol] 7.0 g/dL Normal 6.4-8.2 [facility] Comment on above: Performed By: #### B MP #### [facility] [address] [place] [address] [address] Grace Abdul Sodium [Moles/Vol] 136 mmol/L Normal 136-145 [facility] Comment on above: Performed By: #### B MP #### [facility] [address] [place] [address] [address] Grace Abdul Urea nitrogen [Mass/Vol] 20.0 mg/dL Critically high 7.0-18.0 [facility] Comment on above: Performed By: #### B MP #### [facility] [address] [place] [address] [address] Grace Abdul Urea nitrogen/Creatinine [Mass ratio] 19.2 mg/mg Normal [facility] Comment on above: Performed By: #### B MP #### [facility] [address] [place] [address] [address] Grace Abdul TSHon 12-11-2021 TSH 0.247 uIU/mL Critically low 0.358-3.740 [facility] Comment on above: Performed By: #### B MP #### [facility] [address] [place] [address] [address] Grace Abdul VITAMIN B12on 12-11-2021 Cobalamin (Vitamin B12) [Mass/Vol] 762.0 pg/mL Normal 193.0-986.0 [facility] Comment on above: Performed By: #### I DARIN, VITAD, VITB12 ####[facility] [address] [place] [address]Dr. Grace Abdul VITAMIN D 25 OHon 12-11-2021 VIT D 25-OH 54.9 ng/mL Normal [facility] Comment on above: Performed By: #### I DARIN VITAD, VITB12 ####[facility] [address] [place], [place] [address]Zd. Grace Abdul VIT D RANGES SEE BELOW Normal [facility] Comment on above: Result Comment: <20 ng/mL Vit D deficient 20 - <30 ng/mL Vit D insufficient 30 - 100 ng/mL Vit D sufficient >100 ng/mL Potential Toxicity Performed By: #### I DARIN VITAD, VITB12 ####[facility] [address] [place], [place] [address]Lv. Grace Franko MG MAMM SCREEN 3D CLEMENCIA CADon 11-25-2021 MG MAMM SCREEN 3D CLEMENCIA CAD Patient: ALEXA DELGADO Exam Date: 11/25/2021 : 1940 Gender:F Ordering : DR GALINA ROGERS . Admission #: [id number] Family : DR ELOISA MORALES Order #: [id number] CLICK HERE TO VIEW EXAM RADIOLOGY REPORT [...] Family Cancers None LOCATION: [facility] BREAST COMPOSITION: Scattered areas fibroglandular [...] 11/25/2021 at 14:14 Normal [facility] CULTURE URINEon 11-24-2021 CULTURE URINE Culture Observations : LIGHT GROWTH OF MIXED GENITAL ALANIS. NO POTENTIAL PATHOGENS SEEN. Normal [facility] Comment on above: Performed By: #### U RCX ####[facility] [address] [place] [address]Dr. Grace Abdul GI PANEL (PCR)on 11-24-2021 Adenovirus F 40/41 Not detected Normal NOT DETECTED [facility] Comment on above: Performed By: #### C BC #### [facility] Laboratory [address] [place] [address] Dr. Grace Abdul Astrovirus Not detected Normal NOT DETECTED [facility] Comment on above: Performed By: #### C BC #### [facility] [address] [place] [address] Dr. Grace Dorman. Diff toxin A/B Not detected Normal NOT DETECTED [facility] Comment on above: Performed By: #### C BC #### [facility] Laboratory [address] [place] [address] Dr. Grace Abdul Campylobacter Not detected Normal NOT DETECTED [facility] Comment on above: Performed By: #### C BC #### [facility] [address] [place] [address] Dr. Grace Abdul Cryptosporidium Not detected Normal NOT DETECTED [facility] Comment on above: Performed By: #### C BC #### [facility] [address] [place] [address] Dr. Grace Abdul Cyclos. Cayetanensis Not detected Normal NOT DETECTED [facility] Comment on above: Performed By: #### C BC #### [facility] [address] [place] [address] Dr. Grace Abdul E. Coli O157 Not Applicable Normal Not Applicable [facility] Comment on above: Performed By: #### C BC #### [facility] [address] [place] [address] Dr. Grace Abdul E. histolytica Not detected Normal NOT DETECTED [facility] Comment on above: Performed By: #### C BC #### [facility] [address] [place] [address] Dr. Grace Abdul EAEC Not detected Normal NOT DETECTED [facility] Comment on above: Performed By: #### C BC #### [facility] [address] [place] [address] Dr. Grace Abdul EIEC Not detected Normal NOT DETECTED [facility] Comment on above: Performed By: #### C BC #### [facility] [address] [place] [address] [address] Grace Abdul EPEC Not detected Normal NOT DETECTED [facility] Comment on above: Performed By: #### C BC #### [facility] [address] [place] [address] Dr. Grace Abdul ETEC Not detected Normal NOT DETECTED [facility] Comment on above: Performed By: #### C BC #### [facility] [address] [place] [address] Dr. Grace Smithlivanda Not detected Normal NOT DETECTED [facility] Comment on above: Performed By: #### C BC #### [facility] [address] [place] [address] Dr. Grace MCKEON CONTROLS PASSED Normal [facility] Comment on above: Performed By: #### C BC #### [facility] [address] [place] [address] Dr. Grace DIETRICH HEADER GI PANEL BACTERIA Normal T [facility] Comment on above: Performed By: #### C BC #### [facility] [address] [place] [address] Dr. Grace SANDERS ECOLI GI PANEL DIARRHEAGEN IC E.COLI / SHIGELLA Normal [facility] Comment on above: Performed By: #### C BC #### [facility] [address] [place] [address] Dr. Grace SANDERS INFO SEE BELOW [facility] Comment on above: Result Comment: EAEC - Enteroaggregative E. Coli EPEC- Enteropathogenic E. Coli ETEC- Enterotoxigenic E. Coli lt/st STEC- Shigella-like toxin-producing E. Coli stx1/stx2 EIEC- Shigella/Enteroinvasive E. Coli Performed By: #### C BC #### [facility] Laboratory [address] [place], [place] [id number] Dr. Grace SANDERS PARASITES GI PANEL PARASITES Normal [facility] Comment on above: Performed By: #### C BC #### [facility] [address] [place] [address] Dr. Grace SANDERS VIRUS GI PANEL VIRUSES Normal [facility] Comment on above: Performed By: #### C BC #### [facility] [address] [place] [address] Dr. Grace Abdul Norovirus GI/GII Not detected Normal NOT DETECTED [facility] Comment on above: Performed By: #### C BC #### [facility] [address] [place] [address] Dr. Grace Abdul P. Shigelloides Not detected Normal NOT DETECTED [facility] Comment on above: Performed By: #### C BC #### [facility] [address] [place] [address] Dr. Grace Abdul Rotavirus A Not detected Normal NOT DETECTED [facility] Comment on above: Performed By: #### C BC #### [facility] [address] [place] [address] Dr. Grace Abdul Salmonella Not detected Normal NOT DETECTED [facility] Comment on above: Performed By: #### C BC #### [facility] [address] [place] [address] Dr. Grace Abdul Sapovirus Not detected Normal NOT DETECTED [facility] Comment on above: Performed By: #### C BC #### [facility] [address] [place] [address] Dr. Grace Abdul STEC Not detected Normal NOT DETECTED [facility] Comment on above: Performed By: #### C BC #### [facility] [address] [place] [address] Dr. Grace Abdul Vibrio Not detected Normal NOT DETECTED [facility] Comment on above: Performed By: #### C BC #### [facility] [address] [place] [address] Dr. Grace Abdul Vibrio Cholera Not detected Normal NOT DETECTED [facility] Comment on above: Performed By: #### C BC #### [facility] [address] [place] [address] [address] Grace Blue Enterocolitica Not detected Normal NOT DETECTED [facility] Comment on above: Performed By: #### C BC #### [facility] [address] [address] [address] Grace Abdul UA RANDOM W/MICROSCOPICon BACTERIA NONE SEEN Normal NONE SEEN [facility] Comment on above: Performed By: #### U AMIC ####[facility] [address] [address]Dr. Grace Abdul Bilirubin Ql (U) Negative Normal NEGATIVE [facility] Comment on above: Performed By: #### U AMIC ####[facility] [address] [address]Dr. Grace Abdul CAST NONE SEEN Normal NONE SEEN [facility] Comment on above: Performed By: #### U AMIC ####[facility] [address] [address]Dr. Grace Abdul Clarity (U) CLEAR Normal CLEAR [facility] Comment on above: Performed By: #### U AMIC ####[facility] [address] [address]Dr. Grace Abdul Color (U) LT. YELLOW Normal YELLOW [facility] Comment on above: Performed By: #### U AMIC ####[facility] [address] [address]Dr. Grace Abdul Crystals LM Nom (Urine sed) NONE SEEN Normal NONE SEEN [facility] Comment on above: Performed By: #### U AMIC ####[facility] [address] [address]Dr. Grace Abdul Epithelial cells LM Ql (Urine sed) FEW Abnormal NONE SEEN /RARE [facility] Comment on above: Performed By: #### U AMIC ####[facility] [address] [address]Dr. Grace Abdul Glucose Ql (U) Negative Normal NEGATIVE [facility] Comment on above: Performed By: #### U AMIC ####[facility] [address] [address]Dr. Grace Abdul Hemoglobin Ql (U) TRACE-INTACT Abnormal NEGATIVE [facility] Comment on above: Performed By: #### U AMIC ####[facility] [address] [address]Dr. Grace Abdul Ketones Ql (U) Negative Normal NEGATIVE [facility] Comment on above: Performed By: #### U AMIC ####[facility] [address] [place], [place] [address]Dr. Grace Abdul LEUKOCYTES Negative Normal NEGATIVE [facility] Comment on above: Performed By: #### U AMIC ####[facility] [address] [place], [place] [address]Dr. Grace Abdul MUCOUS NONE SEEN Normal NONE SEEN [facility] Comment on above: Performed By: #### U AMIC ####[facility] [address] [place], [place] [address]Dr. Grace Franko Nitrite Ql (U) Negative Normal NEGATIVE [facility] Comment on above: Performed By: #### U AMIC ####[facility] [address] [place], [place] [address]Dr. Grace Abdul pH (U) 7.5 [pH] Normal 5-9 [facility] Comment on above: Performed By: #### U AMIC ####[facility] [address] [place], [place] [address]Dr. Grace Abdul RBC 0-2 Normal 0-2 [facility] Comment on above: Performed By: #### U AMIC ####[facility] [address] [place], [place] [address]Dr. Benitalee ann Abdul SPEC GRAVITY 1.010 Normal 1.005-<=1.025 [facility] Comment on above: Performed By: #### U AMIC ####[facility] [address] [place], [place] [address]Dr. Grace Abdul UA PROTEIN Negative Normal NEGATIVE/ TRACE [facility] Comment on above: Performed By: #### U AMIC ####[facility] [address] [place] [address] Grace Abdul Urobilinogen Qn (U) 0.2 {Ashley'U}/dL Normal 0.2 - 1. 0 [facility] Comment on above: Performed By: #### U AMIC ####[facility] [address] [id number] Abdul WBC NONE SEEN Normal NONE SEEN [facility] Comment on above: Performed By: #### U AMIC ####[facility] [address] [id number]. Grace Abdul CBC AUTO DIFFon 11-23-2021 BASO # 0.0 103/ul Normal 0.0-0.1 [facility] Comment on above: Performed By: #### C BC #### [facility] [address] [address] [address] Grace Abdul Basophils/100 WBC (Bld) 0.4 % Normal 0.2-2.0 [facility] Comment on above: Performed By: #### C BC #### [facility] [address] [address] [address] Grace Abdul EO # 0.1 103/ul Normal 0.0-0.7 [facility] Comment on above: Performed By: #### C BC #### [facility] [address] [address] [address] Grace Abdul Eosinophils/100 WBC (Bld) 1.5 % Normal 0.9-7.0 [facility] Comment on above: Performed By: #### C BC #### [facility] [address] [address] [address] Grace Abdul Erythrocyte distribution width (RBC) [Ratio] 13.2 % Normal 11.0-15.0 [facility] Comment on above: Performed By: #### C BC #### [facility] [address] [address] [address] Grace Abdul Hematocrit (Bld) [Volume fraction] 31.9 % Critically low 36.0-48.0 [facility] Comment on above: Performed By: #### C BC #### [facility] [address] [address] [address] Grace Abdul Hemoglobin (Bld) [Mass/Vol] 10.5 g/dL Critically low 12.0-16.0 [facility] Comment on above: Performed By: #### C BC #### [facility] [address] [address] [address] Grace Abdul IG # 0.01 10e3/ul Normal 0.00-0.03 [facility] Comment on above: Performed By: #### C BC #### [facility] [address] [place] [address] Dr. Grace Abdul IG % 0.2 % Normal 0.0-0.5 [facility] Comment on above: Performed By: #### C BC #### [facility] [address] [place] [address] Dr. Grace Abdul LYMPH # 0.7 103/ul Critically low 1.2-3.8 [facility] Comment on above: Performed By: #### C BC #### [facility] [address] [place] [address] Dr. Grace Abdul Lymphocytes/100 WBC (Bld) 14.8 % Critically low 20.5-60.0 [facility] Comment on above: Performed By: #### C BC #### [facility] [address] [place] [address] Dr. Grace Abdul MANUAL DIFF REQ NO Normal [facility] Comment on above: Performed By: #### C BC #### [facility] [address] [place] [address] Dr. Grace Abdul MCH (RBC) [Entitic mass] 31.4 pg Normal 26.7-34.0 [facility] Comment on above: Performed By: #### C BC #### [facility] [address] [place] [address] Dr. Grace Abdul MCHC (RBC) [Mass/Vol] 32.9 g/dL Normal 29.9-35.2 [facility] Comment on above: Performed By: #### C BC #### [facility] [address] [place], [place] [id number] Dr. Grace Abdul MCV (RBC) [Entitic vol] 95.5 fL Normal 81.0-99.0 [facility] Comment on above: Performed By: #### C BC #### [facility] [address] [place] [address] Dr. Grace Abdul MONO # 0.6 103/ul Normal 0.3-0.8 [facility] Comment on above: Performed By: #### C BC #### [facility] [address] [place] [address] Dr. Grace Abdul Monocytes/100 WBC (Bld) 13.4 % Critically high 1.7-12.0 [facility] Comment on above: Performed By: #### C BC #### [facility] [address] [place] [address] Dr. Grace Abdul NEUT # 3.3 103/ul Normal 1.4-6.5 [facility] Comment on above: Performed By: #### C BC #### [facility] [address] [place] [address] Dr. Grace Abdul Neutrophils/100 WBC (Bld) 69.7 % Normal 43.0-75.0 [facility] Comment on above: Performed By: #### C BC #### [facility] [address] [place] [address] Dr. Grace Abdul Platelet mean volume (Bld) [Entitic vol] 9.1 fL Critically low 9.5-13.5 [facility] Comment on above: Performed By: #### C BC #### [facility] [address] [place] [address] Dr. Grace Abdul PLT 335 103/ul Normal 150-450 [facility] Comment on above: Performed By: #### C BC #### [facility] [address] [place] [address] Dr. Grace Abdul RBC 3.34 106/ul Critically low 4.20-5.40 [facility] Comment on above: Performed By: #### C BC #### [facility] [address] [place] [address] Dr. Grace Abdul WBC 4.8 103/ul Normal 4.0-11.0 [facility] Comment on above: Performed By: #### C BC #### [facility] [address] [place], [place] [address] Dr. Grace Abdul FREE THYROXINE INDEX T7on FTI 1.15 Critically low 1.30-4.50 [facility] Comment on above: Performed By: #### T 7, CMP, TSH ####[facility] [address] [id number] Abdul T3U 31.0 % Normal 30.0-39.0 [facility] Comment on above: Performed By: #### T 7, CMP, TSH ####[facility] [address] [id number] Abdul T4 [Mass/Vol] 3.70 ug/dL Critically low 4.80-13.90 The [facility] Comment on above: Performed By: #### T 7, CMP, TSH ####[facility] [address] [id number] Abdul IRONon 11-23-2021 Iron [Mass/Vol] 52.0 ug/dL Normal 50.0-170.0 [facility] Comment on above: Performed By: #### C VDTB #### [facility] [address] [place], [place] [address] Dr. Grace Abdul PROF 14(COMP METB)on 022 Albumin [Mass/Vol] 3.5 g/dL Normal 3.4-5.0 [facility] Comment on above: Performed By: #### T 7, CMP, TSH ####[facility] [address] [id number] Abdul Albumin/Globulin [Mass ratio] 1.1 {ratio} Normal [facility] Comment on above: Performed By: #### T 7, CMP, TSH ####[facility] [address] [id number] Abdul ALP [Catalytic activity/Vol] 69 U/L Normal 46-116 [facility] Comment on above: Performed By: #### T 7, CMP, TSH ####[facility] [address] [address]Dr. Grace Abdul ALT [Catalytic activity/Vol] 51 U/L Normal 14-59 [facility] Comment on above: Performed By: #### T 7, CMP, TSH ####[facility] [address] [address]Dr. Grace Abdul Anion gap [Moles/Vol] 11.5 mmol/L Normal [facility] Comment on above: Performed By: #### T 7, CMP, TSH ####[facility] [address] [place], [place] [address]Dr. Grace Abdul AST [Catalytic activity/Vol] 24 U/L Normal 15-37 [facility] Comment on above: Performed By: #### T 7, CMP, TSH ####[facility] [address] [place], [place] [address]Dr. Grace Abdul Bilirubin [Mass/Vol] 0.2 mg/dL Normal 0.2-1.0 [facility] Comment on above: Performed By: #### T 7, CMP, TSH ####[facility] [address] [place], [place] [address]Dr. Grace Abdul Calcium [Mass/Vol] 9.3 mg/dL Normal 8.5-10.1 [facility] Comment on above: Performed By: #### T 7, CMP, TSH ####[facility] [address] [place], [place] [address]Dr. Grace Abdul Chloride [Moles/Vol] 98 mmol/L Normal 98-107 [facility] Comment on above: Performed By: #### T 7, CMP, TSH ####[facility] [address] [place], [place] [address]Dr. Grace Abdul CO2 [Moles/Vol] 28.7 mmol/L Normal 21.0-32.[address] [facility] Comment on above: Performed By: #### T 7, CMP, TSH ####[facility] [address] [place], [place] [address]Dr. Grace Abdul Creatinine [Mass/Vol] 1.11 mg/dL Critically high 0.55-1.02 [facility] Comment on above: Performed By: #### T 7, LEONOR, TSH ####[facility] [address] [address]Dr. Grace Abdul EGFR-AF MALIAN 57 mL/min/1.73m2 Critically low >=60 [facility] Comment on above: Performed By: #### T 7, CMP, TSH ####[facility] [address] [address]Dr. Grace Abdul EGFR-NON AF MALIAN 47 mL/min/1.73m2 Critically low >=60 [facility] Comment on above: Performed By: #### Ainsley 7, LEONOR, TSH ####[facility] [address] [place], [place] [address]Dr. Benitalee ann Abdul Globulin (S) [Mass/Vol] 3.3 g/dL Normal [facility] Comment on above: Performed By: #### T 7, CMP, TSH ####[facility] [address] [place], [place] [address]Dr. Grace Franko Glucose [Mass/Vol] 88 mg/dL Normal 74-106 [facility] Comment on above: Performed By: #### T 7, CMP, TSH ####[facility] [address] [address]Dr. Benitalee ann Abdul Potassium [Moles/Vol] 4.2 mmol/L Normal 3.5-5.1 [facility] Comment on above: Performed By: #### T 7, CMP, TSH ####[facility] [address] [address]Dr. Grace Abdul Protein [Mass/Vol] 6.8 g/dL Normal 6.4-8.2 [facility] Comment on above: Performed By: #### T 7, CMP, TSH ####[facility] [address] [address]Dr. Benitalee ann Abdul Sodium [Moles/Vol] 134 mmol/L Critically low 136-145 [facility] Comment on above: Performed By: #### T 7, CMP, TSH ####[facility] [address] [address]DrLisette Abdul Urea nitrogen [Mass/Vol] 33.0 mg/dL Critically high 7.0-18.0 [facility] Comment on above: Performed By: #### T 7, CMP, TSH ####[facility] [address] [address]DrLisette Abdul Urea nitrogen/Creatinine [Mass ratio] 29.7 mg/mg Normal [facility] Comment on above: Performed By: #### T 7, CMP, TSH ####[facility] [address] [address]DrLisette Abdul TSHon 11-23-2021 TSH 0.469 uIU/mL Normal 0.358-3.740 [facility] Comment on above: Performed By: #### T 7, CMP, TSH ####[facility] [address] [address]DrLisette Abdul CBC AUTO DIFFon 11-17-2021 BASO # 0.0 103/ul Normal 0.0-0.1 [facility] Comment on above: Performed By: #### C VDTBH #### [facility] [address] [place] [address] Dr. Grace Abdul Basophils/100 WBC (Bld) 0.2 % Normal 0.2-2.0 [facility] Comment on above: Performed By: #### C VDTBH #### [facility] [address] [place] [address] Dr. Grace Abdul EO # 0.1 103/ul Normal 0.0-0.7 [facility] Comment on above: Performed By: #### C VDTBH #### [facility] [address] [place] [address] Dr. Grace Abdul Eosinophils/100 WBC (Bld) 0.9 % Normal 0.9-7.0 [facility] Comment on above: Performed By: #### C VDTBH #### [facility] [address] [place] [address] Dr. Grace Abdul Erythrocyte distribution width (RBC) [Ratio] 12.8 % Normal 11.0-15.0 [facility] Comment on above: Performed By: #### C VDTBH #### [facility] [address] [place] [address] Dr. Grace Abdul Hematocrit (Bld) [Volume fraction] 35.2 % Critically low 36.0-48.0 [facility] Comment on above: Performed By: #### C VDTBH #### [facility] [address] [place] [address] Dr. Graec Abdul Hemoglobin (Bld) [Mass/Vol] 12.1 g/dL Normal 12.0-16.0 [facility] Comment on above: Performed By: #### C VDTBH #### [facility] [address] [place] [address] Dr. Grace Abdul IG # 0.05 10e3/ul Critically high 0.00-0.03 [facility] Comment on above: Performed By: #### C VDTBH #### [facility] [address] [place] [address] Dr. Grace Abdul IG % 0.6 % Critically high 0.0-0.5 [facility] Comment on above: Performed By: #### C VDTBH #### [facility] [address] [place] [address] Dr. Grace Abdul LYMPH # 0.6 103/ul Critically low 1.2-3.8 [facility] Comment on above: Performed By: #### C VDTBH #### [facility] [address] [place] [address] Dr. Grace Abdul Lymphocytes/100 WBC (Bld) 7.4 % Critically low 20.5-60.0 [facility] Comment on above: Performed By: #### C VDTBH #### [facility] [address] [place] [address] Dr. Grace Abdul MANUAL DIFF REQ NO Normal [facility] Comment on above: Performed By: #### C VDTBH #### [facility] [address] [address] [address] Grace Abdul MCH (RBC) [Entitic mass] 31.5 pg Normal 26.7-34.0 [facility] Comment on above: Performed By: #### C VDTBH #### [facility] [address] [place] [address] Dr. Grace Abdul MCHC (RBC) [Mass/Vol] 34.4 g/dL Normal 29.9-35.2 [facility] Comment on above: Performed By: #### C VDTBH #### [facility] [address] [place] [address] Dr. Grace Abdul MCV (RBC) [Entitic vol] 91.7 fL Normal 81.0-99.0 [facility] Comment on above: Performed By: #### C VDTBH #### [facility] [address] [place] [address] Dr. Grace Abdul MONO # 1.0 103/ul Critically high 0.3-0.8 [facility] Comment on above: Performed By: #### C VDTBH #### [facility] [address] [place] [address] Dr. Grace Abdul Monocytes/100 WBC (Bld) 12.1 % Critically high 1.7-12.0 [facility] Comment on above: Performed By: #### C VDTBH #### [facility] [address] [place] [address] Dr. Grace Abdul NEUT # 6.3 103/ul Normal 1.4-6.5 [facility] Comment on above: Performed By: #### C VDTBH #### [facility] [address] [place] [address] Dr. Grace Abdul Neutrophils/100 WBC (Bld) 78.8 % Critically high 43.0-75.0 [facility] Comment on above: Performed By: #### C VDTBH #### [facility] [address] [place] [address] Dr. Grace Abdul Platelet mean volume (Bld) [Entitic vol] 9.1 fL Critically low 9.5-13.5 [facility] Comment on above: Performed By: #### C VDTBH #### [facility] [address] [place] [address] Dr. Grace Abdul PLT 281 103/ul Normal 150-450 [facility] Comment on above: Performed By: #### C VDTBH #### [facility] [address] [place] [address] Dr. Grace Abdul RBC 3.84 106/ul Critically low 4.20-5.40 [facility] Comment on above: Performed By: #### C VDTBH #### [facility] [address] [place] [address] Dr. Grace Abdul WBC 8.0 103/ul Normal 4.0-11.0 [facility] Comment on above: Performed By: #### C VDTBH #### [facility] [address] [place] [address] Dr. Grace Abdul MAGNESIUMon 11-17-2021 Magnesium [Mass/Vol] 1.9 mg/dL Normal 1.8-2.4 [facility] Comment on above: Performed By: #### C VDTBH #### [facility] [address] [place] [address] Dr. Grace Abdul PROF CHEM 8 (BAS METB)on Anion gap [Moles/Vol] 13.9 mmol/L Normal [facility] Comment on above: Performed By: #### C VDTBH #### [facility] [address] [place] [address] Dr. Grace Abdul Calcium [Mass/Vol] 8.7 mg/dL Normal 8.5-10.1 [facility] Comment on above: Performed By: #### C VDTBH #### [facility] [address] [place] [address] Dr. Grace Abdul Chloride [Moles/Vol] 101 mmol/L Normal 98-107 [facility] Comment on above: Performed By: #### C VDTBH #### [facility] [address] [place] [address] Dr. Grace Abdul CO2 [Moles/Vol] 24.3 mmol/L Normal 21.0-32.0 [facility] Comment on above: Performed By: #### C VDTBH #### [facility] [address] [place] [address] Dr. Grace Abdul Creatinine [Mass/Vol] 0.89 mg/dL Normal 0.55-1.02 [facility] Comment on above: Performed By: #### C VDTBH #### [facility] [address] [address] [address] Grace Abdul EGFR-AF MALIAN >60 Normal >=60 [facility] Comment on above: Performed By: #### C VDTBH #### [facility] [address] [address] [address] Grace Abdul EGFR-NON AF MALIAN >60 Normal >=60 [facility] Comment on above: Performed By: #### C VDTBH #### [facility] [address] [place] [address] Dr. Grace Abdul Glucose [Mass/Vol] 97 mg/dL Normal 74-106 [facility] Comment on above: Performed By: #### C VDTBH #### [facility] [address] [address] [address] Grace Abdul Potassium [Moles/Vol] 3.2 mmol/L Critically low 3.5-5.1 [facility] Comment on above: Performed By: #### C VDTBH #### [facility] [address] [place] [address] Dr. Grace Abdul Sodium [Moles/Vol] 136 mmol/L Normal 136-145 [facility] Comment on above: Performed By: #### C VDTBH #### [facility] [address] [address] [address] Grace bAdul Urea nitrogen [Mass/Vol] 14.0 mg/dL Normal 7.0-18.0 [facility] Comment on above: Performed By: #### C VDTBH #### [facility] [address] [address] Dr. Grace Abdul Urea nitrogen/Creatinine [Mass ratio] 15.7 mg/mg Normal [facility] Comment on above: Performed By: #### C VDTBH #### [facility] [address] [place] [address] Dr. Grace Abdul CBC AUTO DIFFon 11-16-2021 BASO # 0.0 103/ul Normal 0.0-0.1 [facility] Comment on above: Performed By: #### B MP #### [facility] [address] [place] [address] Dr. Grace Abdul Basophils/100 WBC (Bld) 0.2 % Normal 0.2-2.0 [facility] Comment on above: Performed By: #### B MP #### [facility] [address] [place] [address] Dr. Grace Abdul EO # 0.0 103/ul Normal 0.0-0.7 [facility] Comment on above: Performed By: #### B MP #### [facility] [address] [place] [address] Dr. Grace Abdul Eosinophils/100 WBC (Bld) 0.5 % Critically low 0.9-7.0 [facility] Comment on above: Performed By: #### B MP #### [facility] [address] [place] [address] Dr. Grace Abdul Erythrocyte distribution width (RBC) [Ratio] 12.4 % Normal 11.0-15.0 [facility] Comment on above: Performed By: #### B MP #### [facility] [address] [place] [address] Dr. Grace Abdul Hematocrit (Bld) [Volume fraction] 33.6 % Critically low 36.0-48.0 [facility] Comment on above: Performed By: #### B MP #### [facility] [address] [place] [address] Dr. Grace Abdul Hemoglobin (Bld) [Mass/Vol] 11.8 g/dL Critically low 12.0-16.0 [facility] Comment on above: Performed By: #### B MP #### [facility] [address] [place] [address] Dr. Grace Abdul IG # 0.04 10e3/ul Critically high 0.00-0.03 [facility] Comment on above: Performed By: #### B MP #### [facility] [address] [place] [address] Dr. Grace Abdul IG % 0.7 % Critically high 0.0-0.5 [facility] Comment on above: Performed By: #### B MP #### [facility] [address] [place] [address] Dr. Grace Abdul LYMPH # 0.7 103/ul Critically low 1.2-3.8 [facility] Comment on above: Performed By: #### B MP #### [facility] [address] [place] [address] Dr. Grace Abdul Lymphocytes/100 WBC (Bld) 11.1 % Critically low 20.5-60.0 [facility] Comment on above: Performed By: #### B MP #### [facility] [address] [place] [address] Dr. Grace Abdul MANUAL DIFF REQ NO Normal [facility] Comment on above: Performed By: #### B MP #### [facility] [address] [place] [address] Dr. Grace Abdul MCH (RBC) [Entitic mass] 31.5 pg Normal 26.7-34.0 [facility] Comment on above: Performed By: #### B MP #### [facility] [address] [place] [address] Dr. Grace Abdul MCHC (RBC) [Mass/Vol] 35.1 g/dL Normal 29.9-35.2 [facility] Comment on above: Performed By: #### B MP #### [facility] [address] [place] [address] Dr. Grace Abdul MCV (RBC) [Entitic vol] 89.6 fL Normal 81.0-99.0 [facility] Comment on above: Performed By: #### B MP #### [facility] [address] [place] [address] Dr. Grace Abdul MONO # 0.9 103/ul Critically high 0.3-0.8 [facility] Comment on above: Performed By: #### B MP #### [facility] [address] [address] [address] Grace Abdul Monocytes/100 WBC (Bld) 14.0 % Critically high 1.7-12.0 [facility] Comment on above: Performed By: #### B MP #### [facility] [address] [address] [address] Grace Abdul NEUT # 4.5 103/ul Normal 1.4-6.5 [facility] Comment on above: Performed By: #### B MP #### [facility] [address] [place] [address] Dr. Grace Abdul Neutrophils/100 WBC (Bld) 73.5 % Normal 43.0-75.0 [facility] Comment on above: Performed By: #### B MP #### [facility] [address] [place] [address] Dr. Grace Abdul Platelet mean volume (Bld) [Entitic vol] 9.3 fL Critically low 9.5-13.5 [facility] Comment on above: Performed By: #### B MP #### [facility] [address] [place] [address] Dr. Grace Abdul PLT 292 103/ul Normal 150-450 [facility] Comment on above: Performed By: #### B MP #### [facility] [address] [place] [address] Dr. Grace Abdul RBC 3.75 106/ul Critically low 4.20-5.40 [facility] Comment on above: Performed By: #### B MP #### [facility] [address] [place] [address] Dr. Grace Abdul WBC 6.1 103/ul Normal 4.0-11.0 [facility] Comment on above: Performed By: #### B MP #### [facility] [address] [place] [address] Dr. Grace Abdul CULTURE URINEon 11-16-2021 CULTURE URINE Culture Observations : LIGHT GROWTH OF MIXED GENITAL ALANIS. NO POTENTIAL PATHOGENS SEEN. Normal [facility] Comment on above: Performed By: #### U RCX ####[facility] [id number] [address] Grace HERNANDEZ URINE PROFILEon 2 Bilirubin Ql (U) Negative Normal NEGATIVE [facility] Comment on above: Performed By: #### C VDTBH #### [facility] [address] [address] [address] Grace Abdul Clarity (U) CLEAR Normal CLEAR [facility] Comment on above: Performed By: #### C VDTBH #### [facility] [address] [address] [address] Grace Abdul Color (U) LT. YELLOW Normal YELLOW [facility] Comment on above: Performed By: #### C VDTBH #### [facility] [address] [place] [address] Dr. Grace HIGGINS A micrscopic examination will be performed if indicated. Normal [facility] Comment on above: Performed By: #### C VDTBH #### [facility] [address] [place] [address] Dr. Grace Abdul Glucose Ql (U) Negative Normal NEGATIVE [facility] Comment on above: Performed By: #### C VDTBH #### [facility] [address] [place] [address] Dr. Grace Abdul Hemoglobin Ql (U) SMALL Abnormal NEGATIVE [facility] Comment on above: Performed By: #### C VDTBH #### [facility] [address] [address] [address] Grace Abdul Ketones Ql (U) 40 mg/dl Abnormal NEGATIVE [facility] Comment on above: Performed By: #### C VDTBH #### [facility] [address] [place] [address] Dr. Grace Abdul LEUKOCYTES SMALL Abnormal NEGATIVE [facility] Comment on above: Performed By: #### C VDTBH #### [facility] [address] [address] [address] Grace Abdul Nitrite Ql (U) Negative Normal NEGATIVE [facility] Comment on above: Performed By: #### C VDTBH #### [facility] [address] [place] [address] Dr. Grace Abdul pH (U) 7.0 [pH] Normal 5-9 [facility] Comment on above: Performed By: #### C VDTBH #### [facility] [address] [place] [address] Dr. Grace Abdul SPEC GRAVITY 1.010 Normal 1.005-<=1.025 [facility] Comment on above: Performed By: #### C VDTBH #### [facility] [address] [place] [address] Dr. Grace Abdul UA PROTEIN Negative Normal NEGATIVE/ TRACE [facility] Comment on above: Performed By: #### C VDTBH #### [facility] [address] [place] [address] Dr. Grace Abdul UR MICRO IND INDICATED Normal [facility] Comment on above: Performed By: #### C VDTBH #### [facility] [address] [place] [address] Dr. Grace Abdul Urobilinogen Qn (U) 0.2 {Ashley'U}/dL Normal 0.2 - 1. 0 [facility] Comment on above: Performed By: #### C VDTBH #### [facility] [address] [place] [address] Dr. Grace Abdul MAGNESIUMon 11-16-2021 Magnesium [Mass/Vol] 1.8 mg/dL Normal 1.8-2.4 [facility] Comment on above: Performed By: #### C VDTBH #### [facility] [address] [place] [address] Dr. Grace Abdul PROF CHEM 8 (BAS METB)on Anion gap [Moles/Vol] 12.7 mmol/L Normal [facility] Comment on above: Performed By: #### B MP #### [facility] [address] [place] [address] Dr. Grace Abdul Calcium [Mass/Vol] 8.3 mg/dL Critically low 8.5-10.1 Th e [facility] Comment on above: Performed By: #### B MP #### [facility] [address] [address] [address] Grace Abdul CO2 [Moles/Vol] 24.4 mmol/L Normal 21.0-32.0 [facility] Comment on above: Performed By: #### B MP #### [facility] [address] [address] [address] Grace Abdul Creatinine [Mass/Vol] 1.16 mg/dL Critically high 0.55-1.02 [facility] Comment on above: Performed By: #### B MP #### [facility] [address] [address] [address] Grace Abdul EGFR-AF MALIAN 54 mL/min/1.73m2 Critically low >=60 [facility] Comment on above: Performed By: #### B MP #### [facility] [address] [address] [address] Grace Abdul EGFR-NON AF MALIAN 45 mL/min/1.73m2 Critically low >=60 [facility] Comment on above: Performed By: #### B MP #### [facility] [address] [address] [address] Grace Abdul Glucose [Mass/Vol] 116 mg/dL Critically high 74-106 T [facility] Comment on above: Performed By: #### B MP #### [facility] [address] [address] [address] Grace Abdul Urea nitrogen [Mass/Vol] 20.0 mg/dL Critically high 7.0-18.0 [facility] Comment on above: Performed By: #### B MP #### [facility] [address] [address] [address] Grace Abdul Urea nitrogen/Creatinine [Mass ratio] 17.2 mg/mg Normal [facility] Comment on above: Performed By: #### B MP #### [facility] [address] [address] [address] Grace Abdul Anion gap [Moles/Vol] 10.0 mmol/L Normal [facility] Comment on above: Performed By: #### B MP #### [facility] [address] [address] [address] Grace Abdul Calcium [Mass/Vol] 8.8 mg/dL Normal 8.5-10.1 [facility] Comment on above: Performed By: #### B MP #### [facility] [address] [address] [address] Grace Abdul Chloride [Moles/Vol] 96 mmol/L Critically low 98-107 [facility] Comment on above: Performed By: #### B MP #### [facility] [address] [address] [address] Grace Abdul CO2 [Moles/Vol] 26.1 mmol/L Normal 21.0-32.0 [facility] Comment on above: Performed By: #### B MP #### [facility] [address] [address] [address] Grace Abdul Creatinine [Mass/Vol] 1.11 mg/dL Critically high 0.55-1.02 [facility] Comment on above: Performed By: #### B MP #### [facility] [address] [address] [address] Grace Abdul EGFR-AF MALIAN 57 mL/min/1.73m2 Critically low >=60 [facility] Comment on above: Performed By: #### B MP #### [facility] [address] [address] [address] Grace Abdul EGFR-NON AF MALIAN 47 mL/min/1.73m2 Critically low >=60 [facility] Comment on above: Performed By: #### B MP #### [facility] [address] [address] [address] Grace Abdul Glucose [Mass/Vol] 94 mg/dL Normal 74-106 [facility] Comment on above: Performed By: #### B MP #### [facility] [address] [address] [address] Grace Abdul Potassium [Moles/Vol] 3.1 mmol/L Critically low 3.5-5.1 [facility] Comment on above: Performed By: #### B MP #### [facility] [address] [place] [address] Dr. Grace Abdul Performed By: #### C VDTBH #### [facility] [address] [place] [address] Dr. Grace Abdul Sodium [Moles/Vol] 129 mmol/L Critically low 136-145 [facility] Comment on above: Performed By: #### B MP #### [facility] [address] [place] [address] Dr. Grace Abdul Urea nitrogen [Mass/Vol] 16.0 mg/dL Normal 7.0-18.0 [facility] Comment on above: Performed By: #### B MP #### [facility] [address] [place] [address] Dr. Grace Abdul Urea nitrogen/Creatinine [Mass ratio] 14.4 mg/mg Normal [facility] Comment on above: Performed By: #### B MP #### [facility] [address] [place] [address] Dr. Grace Abdul Anion gap [Moles/Vol] 12.6 mmol/L Normal [facility] Comment on above: Performed By: #### C VDTBH #### [facility] [address] [place] [address] Dr. Grace Abdul Calcium [Mass/Vol] 8.6 mg/dL Normal 8.5-10.1 [facility] Comment on above: Performed By: #### C VDTBH #### [facility] [address] [place] [address] Dr. Grace Abdul Chloride [Moles/Vol] 95 mmol/L Critically low 98-107 [facility] Comment on above: Performed By: #### B MP #### [facility] [address] [place] [address] Dr. Grace Abdul Performed By: #### C VDTBH #### [facility] [address] [place] [address] Dr. Grace Abdul CO2 [Moles/Vol] 22.5 mmol/L Normal 21.0-32.0 [facility] Comment on above: Performed By: #### C VDTBH #### [facility] [address] [address] [address] Grace Abdul Creatinine [Mass/Vol] 0.95 mg/dL Normal 0.55-1.02 [facility] Comment on above: Performed By: #### C VDTBH #### [facility] [address] [address] [address] Grace Abdul EGFR-AF MALIAN >60 Normal >=60 [facility] Comment on above: Performed By: #### C VDTBH #### [facility] [address] [address] [address] Grace Abdul EGFR-NON AF MALIAN 56 mL/min/1.73m2 Critically low >=60 [facility] Comment on above: Performed By: #### C VDTBH #### [facility] [address] [address] [address] Grace Abdul Glucose [Mass/Vol] 92 mg/dL Normal 74-106 [facility] Comment on above: Performed By: #### C VDTBH #### [facility] [address] [address] [address] Grace Abdul Sodium [Moles/Vol] 127 mmol/L Critically low 136-145 Th [facility] Comment on above: Performed By: #### C VDTBH #### [facility] [address] [address] [address] Grace Abdul Urea nitrogen [Mass/Vol] 18.0 mg/dL Normal 7.0-18.0 [facility] Comment on above: Performed By: #### C VDTBH #### [facility] [address] [address] [address] Grace Abdul Urea nitrogen/Creatinine [Mass ratio] 18.9 mg/mg Normal [facility] Comment on above: Performed By: #### C VDTBH #### [facility] [address] [address] [address] Grace Abdul URINE MICROSCOPIC ONLYon BACTERIA TRACE Abnormal NONE SEEN [facility] Comment on above: Performed By: #### C VDTBH #### [facility] [address] [place] [address] Dr. Grace Abdul Bacteria identified Cx Nom (U) INDICATED Normal [facility] Comment on above: Performed By: #### C VDTBH #### [facility] [address] [place] [address] Dr. Grace Abdul CAST NONE SEEN Normal NONE SEEN [facility] Comment on above: Performed By: #### C VDTBH #### [facility] [address] [place] [address] Dr. Grace Abdul Crystals LM Nom (Urine sed) NONE SEEN Normal NONE SEEN [facility] Comment on above: Performed By: #### C VDTBH #### [facility] [address] [place] [address] Dr. Grace Abdul Epithelial cells LM Ql (Urine sed) FEW Abnormal NONE SEEN /RARE [facility] Comment on above: Performed By: #### C VDTBH #### [facility] [address] [place] [address] Dr. Grace Abdul MUCOUS NONE SEEN Normal NONE SEEN [facility] Comment on above: Performed By: #### C VDTBH #### [facility] [address] [place] [address] Dr. Grace Abdul RBC 2-5 Abnormal 0-2 [facility] Comment on above: Performed By: #### C VDTBH #### [facility] [address] [place] [address] Dr. Grace Abdul WBC 5-10 Abnormal NONE SEEN [facility] Comment on above: Performed By: #### C VDTBH #### [facility] [address] [place] [address] Dr. Grace Abdul AMYLASEon 11-15-2021 Amylase [Catalytic activity/Vol] 94 U/L Normal 25-115 [facility] Comment on above: Performed By: #### C VDTBH #### [facility] [address] [place] [address] Dr. Grace Abdul BNPon 11-15-2021 Natriuretic peptide B (Bld) [Mass/Vol] 357.0 pg/mL Normal <=1,800.0 [facility] Comment on above: Performed By: #### C VDTBH #### [facility] [address] [place] [address] Dr. Grace Abdul CARDIAC JOVITA ADMITon 022 CK [Catalytic activity/Vol] 66 U/L Normal 26-192 [facility] Comment on above: Performed By: #### C VDTBH #### [facility] [address] [place] [address] Dr. Grace Abdul CK.MB [Mass/Vol] 2.19 ng/mL Normal <=3.[address] [facility] Comment on above: Performed By: #### C VDTBH #### [facility] [address] [place] [address] Dr. Grace Abdul HSTROP 9.5 pg/mL Normal 4.0-51.3 [facility] Comment on above: Result Comment: CUT- OFF POINTS HAVE BEEN ESTABLISHED BASED ON THE FOURTH UNIVERSAL DEFINITIONS OF MYOCARDIAL INFARCTION. THE UPPER REFERENCE LIMIT (URL) OF TROPONIN, DEFINED THE 99TH PERCENTILE OF cTnI DISTRIBUTION IN A REFERENCE POPULATION, HAS BEEN CONFIRMED THE DECISION THRESHOLD FOR [place] DIAGNOSIS. Performed By: #### C VDTBH #### [facility] [address] [place] [address] Dr. Grace Abdul JOHNNA 73 ng/mL Normal 9-82 [facility] Comment on above: Performed By: #### C VDTBH #### [facility] [address] [place] [address] Dr. Grace Abdul CBC AUTO DIFFon 11-15-2021 BASO # 0.0 103/ul Normal 0.0-0.1 [facility] Comment on above: Performed By: #### B MP #### [facility] [address] [place] [address] Dr. Grace Abdul Basophils/100 WBC (Bld) 0.1 % Critically low 0.2-2.0 [facility] Comment on above: Performed By: #### B MP #### [facility] [address] [place] [address] Dr. Grace Abdul EO # 0.0 103/ul Normal 0.0-0.7 [facility] Comment on above: Performed By: #### B MP #### [facility] [address] [place] [address] Dr. Grace Abdul Eosinophils/100 WBC (Bld) 0.1 % Critically low 0.9-7.0 [facility] Comment on above: Performed By: #### B MP #### [facility] [address] [place] [address] Dr. Grace Abdul Erythrocyte distribution width (RBC) [Ratio] 11.9 % Normal 11.0-15.0 [facility] Comment on above: Performed By: #### B MP #### [facility] [address] [place] [address] Dr. Grace Abdul Hematocrit (Bld) [Volume fraction] 36.6 % Normal 36.0-48.0 [facility] Comment on above: Performed By: #### B MP #### [facility] [address] [place] [address] Dr. Grace Abdul Hemoglobin (Bld) [Mass/Vol] 13.2 g/dL Normal 12.0-16.0 [facility] Comment on above: Performed By: #### B MP #### [facility] [address] [place] [address] Dr. Grace Abdul IG # 0.05 10e3/ul Critically high 0.00-0.03 [facility] Comment on above: Performed By: #### B MP #### [facility] [address] [place] [address] Dr. Grace Abdul IG % 0.7 % Critically high 0.0-0.5 [facility] Comment on above: Performed By: #### B MP #### [facility] [address] [place] [address] Dr. Grace Abdul LYMPH # 0.7 103/ul Critically low 1.2-3.8 [facility] Comment on above: Performed By: #### B MP #### [facility] [address] [place] [address] Dr. Grace Abdul Lymphocytes/100 WBC (Bld) 9.8 % Critically low 20.5-60.0 [facility] Comment on above: Performed By: #### B MP #### [facility] [address] [place] [address] Dr. Grace Abdul MANUAL DIFF REQ NO Normal [facility] Comment on above: Performed By: #### B MP #### [facility] [address] [place] [address] Dr. Grace Abdul MCH (RBC) [Entitic mass] 31.5 pg Normal 26.7-34.0 [facility] Comment on above: Performed By: #### B MP #### [facility] [address] [place] [address] Dr. Grace Adbul MCHC (RBC) [Mass/Vol] 36.1 g/dL Critically high 29.9-35.2 [facility] Comment on above: Performed By: #### B MP #### [facility] [address] [place] [address] Dr. Grace Abdul MCV (RBC) [Entitic vol] 87.4 fL Normal 81.0-99.0 [facility] Comment on above: Performed By: #### B MP #### [facility] [address] [place] [address] Dr. Grace Abdul MONO # 0.9 103/ul Critically high 0.3-0.8 [facility] Comment on above: Performed By: #### B MP #### [facility] [address] [place] [address] Dr. Grace Abdul Monocytes/100 WBC (Bld) 12.4 % Critically high 1.7-12.0 [facility] Comment on above: Performed By: #### B MP #### [facility] [address] [place] [address] Dr. Grace Abdul NEUT # 5.8 103/ul Normal 1.4-6.5 [facility] Comment on above: Performed By: #### B MP #### [facility] [address] [place] [address] Dr. Grace Abdul Neutrophils/100 WBC (Bld) 76.9 % Critically high 43.0-75.0 [facility] Comment on above: Performed By: #### B MP #### [facility] [address] [place] [address] Dr. Grace Abdul Platelet mean volume (Bld) [Entitic vol] 9.0 fL Critically low 9.5-13.5 [facility] Comment on above: Performed By: #### B MP #### [facility] [address] [place] [address] Dr. Grace Abdul PLT 361 103/ul Normal 150-450 [facility] Comment on above: Performed By: #### B MP #### [facility] [address] [address] [address] Grace Abdul RBC 4.19 106/ul Critically low 4.20-5.40 [facility] Comment on above: Performed By: #### B MP #### [facility] [address] [place] [address] Dr. Grace Abdul WBC 7.6 103/ul Normal 4.0-11.0 [facility] Comment on above: Performed By: #### B MP #### [facility] [address] [place] [address] Dr. Grace Abdul Covid-19 PCR ([facility])on 10-23 SARS-CoV-2 (COVID-19) RNA LUISITO+probe Ql (Unsp spec) Not detected Normal NOT DETECTED [facility] Comment on above: Result Comment: [...] for this test is supported by the Chief Lending Officer of Health and Human Service's declaration that [...] By: #### C VDTBH #### [facility] [address] [place] [address] Dr. Grace Abdul LIPASEon 11-15-2021 Lipase [Catalytic activity/Vol] 178.0 U/L Normal 73.0-393.0 [facility] Comment on above: Performed By: #### C VDTBH #### [facility] [address] [place] [address] Dr. Grace Abdul PROF 14(COMP METB)on 022 Albumin [Mass/Vol] 4.1 g/dL Normal 3.4-5.0 [facility] Comment on above: Performed By: #### C VDTBH #### [facility] [address] [place] [address] Dr. Graec Abdul Albumin/Globulin [Mass ratio] 1.2 {ratio} Normal [facility] Comment on above: Performed By: #### C VDTBH #### [facility] [address] [place] [address] Dr. Grace Abdul ALP [Catalytic activity/Vol] 63 U/L Normal 46-116 [facility] Comment on above: Performed By: #### C VDTBH #### [facility] [address] [place] [address] Dr. Grace Abdul ALT [Catalytic activity/Vol] 29 U/L Normal 14-59 [facility] Comment on above: Performed By: #### C VDTBH #### [facility] [address] [place] [address] Dr. Grace Abdul Anion gap [Moles/Vol] 14.8 mmol/L Normal [facility] Comment on above: Performed By: #### C VDTBH #### [facility] [address] [place] [address] Dr. Grace Abdul AST [Catalytic activity/Vol] 25 U/L Normal 15-37 [facility] Comment on above: Performed By: #### C VDTBH #### [facility] [address] [address] [address] Grace Abdul Bilirubin [Mass/Vol] 0.6 mg/dL Normal 0.2-1.0 [facility] Comment on above: Performed By: #### C VDTBH #### [facility] [address] [address] [address] Grace Abdul Calcium [Mass/Vol] 9.4 mg/dL Normal 8.5-10.1 [facility] Comment on above: Performed By: #### C VDTBH #### [facility] [address] [address] [address] Grace Abdul Chloride [Moles/Vol] 83 mmol/L Critically low 98-107 [facility] Comment on above: Performed By: #### C VDTBH #### [facility] [address] [place] [address] Dr. Grace Abdul CO2 [Moles/Vol] 24.4 mmol/L Normal 21.0-32.0 [facility] Comment on above: Performed By: #### C VDTBH #### [facility] [address] [address] [address] Grace Abdul Creatinine [Mass/Vol] 1.15 mg/dL Critically high 0.55-1.02 [facility] Comment on above: Performed By: #### C VDTBH #### [facility] [address] [address] [address] Grace Abdul EGFR-AF MALIAN 55 mL/min/1.73m2 Critically low >=60 [facility] Comment on above: Performed By: #### C VDTBH #### [facility] [address] [address] [address] Grace Abdul EGFR-NON AF MALIAN 45 mL/min/1.73m2 Critically low >=60 [facility] Comment on above: Performed By: #### C VDTBH #### [facility] [address] [address] [address] Grace Abdul Globulin (S) [Mass/Vol] 3.4 g/dL Normal [facility] Comment on above: Performed By: #### C VDTBH #### [facility] [address] [place] [address] Dr. Grace Abdul Glucose [Mass/Vol] 147 mg/dL Critically high 74-106 T [facility] Comment on above: Performed By: #### C VDTBH #### [facility] [address] [place] [address] Dr. Grace Abdul Potassium [Moles/Vol] 3.2 mmol/L Critically low 3.5-5.1 [facility] Comment on above: Performed By: #### C VDTBH #### [facility] [address] [place] [address] Dr. Grace Abdul Protein [Mass/Vol] 7.5 g/dL Normal 6.4-8.2 [facility] Comment on above: Performed By: #### C VDTBH #### [facility] [address] [place] [address] Dr. Grace Abdul Urea nitrogen/Creatinine [Mass ratio] 21.7 mg/mg Normal [facility] Comment on above: Performed By: #### C VDTBH #### [facility] [address] [place] [address] Dr. Grace Abdul PROF CHEM 8 (BAS METB)on Anion gap [Moles/Vol] 13.6 mmol/L Normal [facility] Comment on above: Performed By: #### C VDTBH #### [facility] [address] [place] [address] Dr. Grace Abdul Calcium [Mass/Vol] 8.8 mg/dL Normal 8.5-10.1 [facility] Comment on above: Performed By: #### C VDTBH #### [facility] [address] [place] [address] Dr. Grace Abdul Chloride [Moles/Vol] 88 mmol/L Critically low 98-107 [facility] Comment on above: Performed By: #### C VDTBH #### [facility] [address] [place] [address] Dr. Grace Abdul CO2 [Moles/Vol] 21.8 mmol/L Normal 21.0-32.0 [facility] Comment on above: Performed By: #### C VDTBH #### [facility] [address] [place] [address] Dr. Grace Abdul Creatinine [Mass/Vol] 1.11 mg/dL Critically high 0.55-1.02 [facility] Comment on above: Performed By: #### C VDTBH #### [facility] [address] [place] [address] Dr. Grace Abdul EGFR-AF MALIAN 57 mL/min/1.73m2 Critically low >=60 [facility] Comment on above: Performed By: #### C VDTBH #### [facility] [address] [place] [address] Dr. Grace Abdul EGFR-NON AF MALIAN 47 mL/min/1.73m2 Critically low >=60 [facility] Comment on above: Performed By: #### C VDTBH #### [facility] [address] [place] [address] Dr. Grace Abdul Glucose [Mass/Vol] 132 mg/dL Critically high 74-106 T [facility] Comment on above: Performed By: #### C VDTBH #### [facility] [address] [place] [address] Dr. Grace Abdul Potassium [Moles/Vol] 3.4 mmol/L Critically low 3.5-5.1 [facility] Comment on above: Performed By: #### C VDTBH #### [facility] [address] [place] [address] Dr. Grace Abdul Sodium [Moles/Vol] 120 mmol/L Critically low 136-145 Th [facility] Comment on above: Result Comment: Test Repeated. Critical Value Verified Performed By: #### C VDTBH #### [facility] [address] [place] [address] Dr. Grace Abdul Urea nitrogen [Mass/Vol] 25.0 mg/dL Critically high 7.0-18.0 [facility] Comment on above: Performed By: #### C VDTBH #### [facility] [address] [address] [address] Grace Abdul Urea nitrogen/Creatinine [Mass ratio] 22.5 mg/mg Normal [facility] Comment on above: Performed By: #### C VDTBH #### [facility] [id number] Grace Abdul PROTIMEon 11-15-2021 INR Coag (PPP) [Relative time] 0.94 {INR} Normal [facility] Comment on above: Performed By: #### C VDTBH #### [facility] [address] [place] [address] Dr. Grace Abdul INR GUIDELINES SEE BELOW Normal [facility] Comment on above: Result Comment: DURAN RED INR: 2.0 - 3.0 CONDITIONS NOT LISTED BELOW 2.5 - 3.5 FOR PROSTHETIC HEART VALVE REPLACEMENT 2.5 - 3.5 RECURRENT THROMBOSIS Performed By: #### C VDTBH #### [facility] [address] [place] [address] Dr. Grace Abdul PT Coag (PPP) [Time] 10.2 s Normal 9.0-11.6 [facility] Comment on above: Performed By: #### C VDTBH #### [facility] [address] [place] [address] Dr. Grace Abdul XR ABD FLAT UP_PA [...] Date: 2021-11-15 13:56 Normal [facility] BNPon 11-11-2021 Natriuretic peptide B (Bld) [Mass/Vol] 546.0 pg/mL Normal <=1,800.0 [facility] Comment on above: Performed By: #### C MP, TSH, HSTROPN, BNP ####[facility] [id number] [id number]. Grace Abdul CBC AUTO DIFFon 11-11-2021 BASO # 0.0 103/ul Normal 0.0-0.1 [facility] Comment on above: Performed By: #### C BC #### [facility] [address] [address] [address] Grace Abdul Basophils/100 WBC (Bld) 0.3 % Normal 0.2-2.0 [facility] Comment on above: Performed By: #### C BC #### [facility] [address] [place] [address] Dr. Grace Abdul EO # 0.0 103/ul Normal 0.0-0.7 [facility] Comment on above: Performed By: #### C BC #### [facility] [address] [place] [address] Dr. Grace Abdul Eosinophils/100 WBC (Bld) 0.5 % Critically low 0.9-7.0 [facility] Comment on above: Performed By: #### C BC #### [facility] [address] [place] [address] Dr. Grace Abdul Erythrocyte distribution width (RBC) [Ratio] 12.9 % Normal 11.0-15.0 [facility] Comment on above: Performed By: #### C BC #### [facility] [address] [place] [address] Dr. Garce Abdul Hematocrit (Bld) [Volume fraction] 36.1 % Normal 36.0-48.0 [facility] Comment on above: Performed By: #### C BC #### [facility] [address] [place] [address] Dr. Grace Abdul Hemoglobin (Bld) [Mass/Vol] 12.3 g/dL Normal 12.0-16.0 [facility] Comment on above: Performed By: #### C BC #### [facility] [address] [place] [address] Dr. Grace Abdul IG # 0.01 10e3/ul Normal 0.00-0.03 [facility] Comment on above: Performed By: #### C BC #### [facility] [address] [place] [address] Dr. Grace Abdul IG % 0.3 % Normal 0.0-0.5 [facility] Comment on above: Performed By: #### C BC #### [facility] [address] [place] [address] Dr. Grace Abdul LYMPH # 0.6 103/ul Critically low 1.2-3.8 [facility] Comment on above: Performed By: #### C BC #### [facility] [address] [place] [address] Dr. Grace Abdul Lymphocytes/100 WBC (Bld) 14.8 % Critically low 20.5-60.0 [facility] Comment on above: Performed By: #### C BC #### [facility] [address] [place] [address] Dr. Grace Abdul MANUAL DIFF REQ NO Normal [facility] Comment on above: Performed By: #### C BC #### [facility] [address] [place] [address] Dr. Grace Abdul MCH (RBC) [Entitic mass] 31.5 pg Normal 26.7-34.0 [facility] Comment on above: Performed By: #### C BC #### [facility] [address] [place] [address] Dr. Grace Abdul MCHC (RBC) [Mass/Vol] 34.1 g/dL Normal 29.9-35.2 [facility] Comment on above: Performed By: #### C BC #### [facility] [address] [place] [address] Dr. Grace Abdul MCV (RBC) [Entitic vol] 92.6 fL Normal 81.0-99.0 [facility] Comment on above: Performed By: #### C BC #### [facility] [address] [place] [address] Dr. Grace Abdul MONO # 0.5 103/ul Normal 0.3-0.8 [facility] Comment on above: Performed By: #### C BC #### [facility] [address] [place] [address] Dr. Grace Abdul Monocytes/100 WBC (Bld) 13.5 % Critically high 1.7-12.0 [facility] Comment on above: Performed By: #### C BC #### [facility] [address] [place] [address] Dr. Grace Abdul NEUT # 2.7 103/ul Normal 1.4-6.5 [facility] Comment on above: Performed By: #### C BC #### [facility] [address] [place] [address] Dr. Grace Abdul Neutrophils/100 WBC (Bld) 70.6 % Normal 43.0-75.0 [facility] Comment on above: Performed By: #### C BC #### [facility] [address] [place] [address] Dr. Grace Abdul Platelet mean volume (Bld) [Entitic vol] 9.2 fL Critically low 9.5-13.5 [facility] Comment on above: Performed By: #### C BC #### [facility] [address] [place] [address] Dr. Grace Abdul PLT 279 103/ul Normal 150-450 [facility] Comment on above: Performed By: #### C BC #### [facility] [address] [place] [address] Dr. Grace Abdul RBC 3.90 106/ul Critically low 4.20-5.40 [facility] Comment on above: Performed By: #### C BC #### [facility] [address] [place] [address] Dr. Grace Abdul WBC 3.9 103/ul Critically low 4.0-11.0 [facility] Comment on above: Performed By: #### C BC #### [facility] [address] [place] [address] Dr. Grace Abdul PROF 14(COMP METB)on 022 Albumin [Mass/Vol] 3.3 g/dL Critically low 3.4-5.0 Th e [facility] Comment on above: Performed By: #### C MP, TSH, HSTROPN, BNP #### [facility] [address] [place] [address] Dr. Grace Abdul Albumin/Globulin [Mass ratio] 1.2 {ratio} Normal [facility] Comment on above: Performed By: #### C MP, TSH, HSTROPN, BNP #### [facility] [address] [place] [address] Dr. Grace Abdul ALP [Catalytic activity/Vol] 60 U/L Normal 46-116 [facility] Comment on above: Performed By: #### C MP, TSH, HSTROPN, BNP #### [facility] [address] [place] [address] Dr. Grace Abdul ALT [Catalytic activity/Vol] 26 U/L Normal 14-59 [facility] Comment on above: Performed By: #### C MP, TSH, HSTROPN, BNP #### [facility] [address] [place] [address] Dr. Grace Abdul Anion gap [Moles/Vol] 14.8 mmol/L Normal [facility] Comment on above: Performed By: #### C MP, TSH, HSTROPN, BNP #### [facility] [address] [place] [address] Dr. Grace Abdul AST [Catalytic activity/Vol] 20 U/L Normal 15-37 [facility] Comment on above: Performed By: #### C MP, TSH, HSTROPN, BNP #### [facility] [address] [place] [address] Dr. Grace Abdul Bilirubin [Mass/Vol] 0.3 mg/dL Normal 0.2-1.0 [facility] Comment on above: Performed By: #### C MP, TSH, HSTROPN, BNP #### [facility] [address] [place] [address] Dr. Grace Abdul Calcium [Mass/Vol] 8.2 mg/dL Critically low 8.5-10.1 Th e [facility] Comment on above: Performed By: #### C MP, TSH, HSTROPN, BNP #### [facility] [address] [place] [address] Dr. Grace Abdul Chloride [Moles/Vol] 100 mmol/L Normal 98-107 [facility] Comment on above: Performed By: #### C MP, TSH, HSTROPN, BNP #### [facility] [address] [place] [address] Dr. Grace Abdul CO2 [Moles/Vol] 23.8 mmol/L Normal 21.0-32.0 [facility] Comment on above: Performed By: #### C MP, TSH, HSTROPN, BNP #### [facility] [address] [place] [address] Dr. Grace Abdul Creatinine [Mass/Vol] 1.27 mg/dL Critically high 0.55-1.02 [facility] Comment on above: Performed By: #### C MP, TSH, HSTROPN, BNP #### [facility] [address] [place] [address] Dr. Grace Abdul EGFR-AF MALIAN 49 mL/min/1.73m2 Critically low >=60 [facility] Comment on above: Performed By: #### C MP, TSH, HSTROPN, BNP #### [facility] [address] [place] [address] Dr. rGace Abdul EGFR-NON AF MALIAN 40 mL/min/1.73m2 Critically low >=60 [facility] Comment on above: Performed By: #### C MP, TSH, HSTROPN, BNP #### [facility] [address] [place] [address] Dr. Grace Abdul Globulin (S) [Mass/Vol] 2.7 g/dL Normal [facility] Comment on above: Performed By: #### C MP, TSH, HSTROPN, BNP #### [facility] [address] [place] [address] Dr. Grace Abdul Glucose [Mass/Vol] 116 mg/dL Critically high 74-106 T [facility] Comment on above: Performed By: #### C MP, TSH, HSTROPN, BNP #### [facility] [address] [address] [address] Grace Abdul Potassium [Moles/Vol] 3.6 mmol/L Normal 3.5-5.1 [facility] Comment on above: Performed By: #### C MP, TSH, HSTROPN, BNP #### [facility] [address] [place] [address] Dr. Grace Abdul Protein [Mass/Vol] 6.0 g/dL Critically low 6.4-8.2 Th [facility] Comment on above: Performed By: #### C MP, TSH, HSTROPN, BNP #### [facility] [address] [place] [address] Dr. Grace Abdul Sodium [Moles/Vol] 135 mmol/L Critically low 136-145 Th [facility] Comment on above: Performed By: #### C MP, TSH, HSTROPN, BNP #### [facility] [address] [place] [address] Dr. Grace Abdul Urea nitrogen [Mass/Vol] 25.0 mg/dL Critically high 7.0-18.0 [facility] Comment on above: Performed By: #### C MP, TSH, HSTROPN, BNP #### [facility] [address] [place] [address] Dr. Grace Abdul Urea nitrogen/Creatinine [Mass ratio] 19.7 mg/mg Normal [facility] Comment on above: Performed By: #### C MP, TSH, HSTROPN, BNP #### [facility] [address] [place] [address] Dr. Grace Abdul PROTIMEon 11-11-2021 INR Coag (PPP) [Relative time] 0.95 {INR} Normal [facility] Comment on above: Performed By: #### B MP #### [facility] [address] [place] [address] Dr. Grace Abdul INR GUIDELINES SEE BELOW Normal [facility] Comment on above: Result Comment: DURAN RED INR: 2.0 - 3.0 CONDITIONS NOT LISTED BELOW 2.5 - 3.5 FOR PROSTHETIC HEART VALVE REPLACEMENT 2.5 - 3.5 RECURRENT THROMBOSIS Performed By: #### B MP #### [facility] [address] [address] [address] Grace Abdul PT Coag (PPP) [Time] 10.3 s Normal 9.0-11.6 [facility] Comment on above: Performed By: #### B MP #### [facility] [id number] Grace Abdul PTTon 11-11-2021 aPTT Coag (Bld) [Time] 21.3 s Critically low 22.3-36.2 [facility] Comment on above: Performed By: #### B MP #### [facility] [address] [address] [address] Grace Abdul TROPONIN, HIGH SENSITIVITYon 11-11-2021 HSTROP 6.5 pg/mL Normal 4.0-51.3 [facility] Comment on above: Result Comment: CUT- OFF POINTS HAVE BEEN ESTABLISHED BASED ON THE FOURTH UNIVERSAL DEFINITIONS OF MYOCARDIAL INFARCTION. THE UPPER REFERENCE LIMIT (URL) OF TROPONIN, DEFINED THE 99TH PERCENTILE OF cTnI DISTRIBUTION IN A REFERENCE POPULATION, HAS BEEN CONFIRMED THE DECISION THRESHOLD FOR [place] DIAGNOSIS. Performed By: #### C MP, TSH, HSTROPN, BNP #### [facility] [id number] Grace Abdul TSHon 11-11-2021 TSH 2.140 uIU/mL Normal 0.358-3.740 [facility] Comment on above: Performed By: #### C MP, TSH, HSTROPN, BNP ####[facility] [id number] [place], [place] [address]YiDr. Grace Abdul XR CHEST 1 Von 11-11-2021 [...] Date: 2021-11-11 13:34 Normal [facility] CARDIAC JOVITA ADMITon 022 CK [Catalytic activity/Vol] 89 U/L Normal 26-192 [facility] Comment on above: Performed By: #### C VDTBH #### [facility] [address] [place] [address] Dr. Grace Abdul CK.MB [Mass/Vol] 1.92 ng/mL Normal <=3.[address] [facility] Comment on above: Performed By: #### C VDTBH #### [facility] [address] [place] [address] Dr. Grace Abdul HSTROP 5.7 pg/mL Normal 4.0-51.3 The [facility] [facility] Comment on above: Result Comment: CUT- OFF POINTS HAVE BEEN ESTABLISHED BASED ON THE FOURTH UNIVERSAL DEFINITIONS OF MYOCARDIAL INFARCTION. THE UPPER REFERENCE LIMIT (URL) OF TROPONIN, DEFINED THE 99TH PERCENTILE OF cTnI DISTRIBUTION IN A REFERENCE POPULATION, HAS BEEN CONFIRMED THE DECISION THRESHOLD FOR [place] DIAGNOSIS. Performed By: #### C VDTBH #### [facility] [address] [place] [address] Dr. Grace Abdul JOHNNA 86 ng/mL Critically high 9-82 [facility] Comment on above: Performed By: #### C VDTBH #### [facility] [address] [place] [address] Dr. Grace Abdul CBC AUTO DIFFon 09-13-2021 BASO # 0.0 103/ul Normal 0.0-0.1 [facility] Comment on above: Performed By: #### C VDTBH #### [facility] [address] [place] [address] Dr. Grace Abdul Basophils/100 WBC (Bld) 0.5 % Normal 0.2-2.0 [facility] Comment on above: Performed By: #### C VDTBH #### [facility] [address] [place] [address] Dr. Grace Abdul EO # 0.0 103/ul Normal 0.0-0.7 [facility] Comment on above: Performed By: #### C VDTBH #### [facility] [address] [place] [address] Dr. Grace Abdul Eosinophils/100 WBC (Bld) 0.7 % Critically low 0.9-7.0 [facility] Comment on above: Performed By: #### C VDTBH #### [facility] [address] [place] [address] Dr. Grace Abdul Erythrocyte distribution width (RBC) [Ratio] 13.2 % Normal 11.0-15.0 [facility] Comment on above: Performed By: #### C VDTBH #### [facility] [address] [place] [address] Dr. Grace Abdul Hematocrit (Bld) [Volume fraction] 34.8 % Critically low 36.0-48.0 [facility] Comment on above: Performed By: #### C VDTBH #### [facility] [address] [place] [address] Dr. Grace Abdul Hemoglobin (Bld) [Mass/Vol] 11.9 g/dL Critically low 12.0-16.0 [facility] Comment on above: Performed By: #### C VDTBH #### [facility] [address] [place] [address] Dr. Grace Abdul IG # 0.01 10e3/ul Normal 0.00-0.03 [facility] Comment on above: Performed By: #### C VDTBH #### [facility] [address] [place] [address] Dr. Grace Abdul IG % 0.2 % Normal 0.0-0.5 [facility] Comment on above: Performed By: #### C VDTBH #### [facility] [address] [place] [address] Dr. Grace Abdul LYMPH # 0.6 103/ul Critically low 1.2-3.8 [facility] Comment on above: Performed By: #### C VDTBH #### [facility] [address] [place] [address] Dr. Grace Abdul Lymphocytes/100 WBC (Bld) 14.2 % Critically low 20.5-60.0 [facility] Comment on above: Performed By: #### C VDTBH #### [facility] [address] [place] [address] Dr. Grace Abdul MANUAL DIFF REQ NO Normal [facility] Comment on above: Performed By: #### C VDTBH #### [facility] [address] [place] [address] Dr. Grace Abdul MCH (RBC) [Entitic mass] 31.5 pg Normal 26.7-34.0 [facility] Comment on above: Performed By: #### C VDTBH #### [facility] [address] [place] [address] Dr. Grace Abdul MCHC (RBC) [Mass/Vol] 34.2 g/dL Normal 29.9-35.2 [facility] Comment on above: Performed By: #### C VDTBH #### [facility] [address] [place] [address] Dr. Grace Abdul MCV (RBC) [Entitic vol] 92.1 fL Normal 81.0-99.0 [facility] Comment on above: Performed By: #### C VDTBH #### [facility] [address] [place] [address] Dr. Grace Abdul MONO # 0.7 103/ul Normal 0.3-0.8 [facility] Comment on above: Performed By: #### C VDTBH #### [facility] [address] [place] [address] Dr. Grace Abdul Monocytes/100 WBC (Bld) 15.6 % Critically high 1.7-12.0 [facility] Comment on above: Performed By: #### C VDTBH #### [facility] [address] [place] [address] Dr. Grace Abdul NEUT # 3.0 103/ul Normal 1.4-6.5 [facility] Comment on above: Performed By: #### C VDTBH #### [facility] [address] [address] [address] Grace Abdul Neutrophils/100 WBC (Bld) 68.8 % Normal 43.0-75.0 [facility] Comment on above: Performed By: #### C VDTBH #### [facility] [address] [address] [address] Grace Abdul Platelet mean volume (Bld) [Entitic vol] 9.5 fL Normal 9.5-13.5 [facility] Comment on above: Performed By: #### C VDTBH #### [facility] [address] [address] [address] Grace Abdul PLT 303 103/ul Normal 150-450 [facility] Comment on above: Performed By: #### C VDTBH #### [facility] [address] [place] [address] Dr. Grace Abdul RBC 3.78 106/ul Critically low 4.20-5.40 [facility] Comment on above: Performed By: #### C VDTBH #### [facility] [address] [place] [address] Dr. Grace Abdul WBC 4.4 103/ul Normal 4.0-11.0 [facility] Comment on above: Performed By: #### C VDTBH #### [facility] [address] [place] [address] HEAD WO CONon [...] Date: 2021-09-13 13:24 Normal [facility] Covid-19 PCR (CVDTB)on 08-22 SARS-CoV-2 (COVID-19) RNA LUISITO+probe Ql (Unsp spec) Not detected Normal NOT DETECTED [facility] Comment on above: Result Comment: [...] for this test is supported by the Chief Lending Officer of Health and Human Service's declaration that [...] By: #### C VDTBH #### [facility] [address] [place] [address] Dr. Grace Abdul ER URINE PROFILEon 2 Bilirubin Ql (U) Negative Normal NEGATIVE [facility] Comment on above: Performed By: #### B MP #### [facility] [address] [place] [address] Dr. Grace Abdul Clarity (U) CLEAR Normal CLEAR [facility] Comment on above: Performed By: #### B MP #### [facility] [address] [place] [address] Dr. Grace Abdul Color (U) LT. YELLOW Normal YELLOW [facility] Comment on above: Performed By: #### B MP #### [facility] [address] [place] [address] Dr. Grace Abdul ERUAHD A micrscopic examination will be performed if indicated. Normal [facility] Comment on above: Performed By: #### B MP #### [facility] [address] [address] [address] Grace Abdul Glucose Ql (U) Negative Normal NEGATIVE [facility] Comment on above: Performed By: #### B MP #### [facility] [address] [address] [address] Grace Abdul Hemoglobin Ql (U) Negative Normal NEGATIVE [facility] Comment on above: Performed By: #### B MP #### [facility] [address] [address] [address] Grace Abdul Ketones Ql (U) TRACE Abnormal NEGATIVE [facility] Comment on above: Performed By: #### B MP #### [facility] [address] [place] [address] Dr. Grace Abdul LEUKOCYTES TRACE Abnormal NEGATIVE [facility] Comment on above: Performed By: #### B MP #### [facility] [address] [place] [address] Dr. Grace Abdul Nitrite Ql (U) Negative Normal NEGATIVE [facility] Comment on above: Performed By: #### B MP #### [facility] [address] [place] [address] Dr. Grace Abdul pH (U) 8.0 [pH] Normal 5-9 [facility] Comment on above: Performed By: #### B MP #### [facility] [address] [place] [address] Dr. Grace Abdul SPEC GRAVITY 1.015 Normal 1.005-<=1.025 [facility] Comment on above: Performed By: #### B MP #### [facility] [address] [address] [address] Grace Abdul UA PROTEIN Negative Normal NEGATIVE/ TRACE [facility] Comment on above: Performed By: #### B MP #### [facility] [address] [place] [address] Dr. Grace Abdul UR MICRO IND INDICATED Normal [facility] Comment on above: Performed By: #### B MP #### [facility] [address] [place] [address] Dr. Grace Abdul Urobilinogen Qn (U) 0.2 {Ashley'U}/dL Normal 0.2 - 1. 0 [facility] Comment on above: Performed By: #### B #### [facility] [address] [place] [address] Dr. Grace Abdul PROF 14(COMP METB)on 022 Albumin [Mass/Vol] 3.8 g/dL Normal 3.4-5.0 [facility] Comment on above: Performed By: #### C VDTBH #### [facility] [address] [place] [address] Dr. Grace Abdul Albumin/Globulin [Mass ratio] 1.4 {ratio} Normal [facility] Comment on above: Performed By: #### C VDTBH #### [facility] [address] [place] [address] Dr. Grace Abdul ALP [Catalytic activity/Vol] 53 U/L Normal 46-116 [facility] Comment on above: Performed By: #### C VDTBH #### [facility] [address] [place] [address] Dr. Grace Abdul ALT [Catalytic activity/Vol] 20 U/L Normal 14-59 [facility] Comment on above: Performed By: #### C VDTBH #### [facility] [address] [place] [address] Dr. Grace Abdul Anion gap [Moles/Vol] 12.0 mmol/L Normal [facility] Comment on above: Performed By: #### C VDTBH #### [facility] [address] [place] [address] Dr. Grace Abdul AST [Catalytic activity/Vol] 18 U/L Normal 15-37 [facility] Comment on above: Performed By: #### C VDTBH #### [facility] [address] [place] [address] Dr. Grace Abdul Bilirubin [Mass/Vol] 0.4 mg/dL Normal 0.2-1.0 [facility] Comment on above: Performed By: #### C VDTBH #### [facility] [address] [address] [address] Grace Abdul Calcium [Mass/Vol] 9.5 mg/dL Normal 8.5-10.1 [facility] Comment on above: Performed By: #### C VDTBH #### [facility] [address] [address] [address] Grace Abdul Chloride [Moles/Vol] 99 mmol/L Normal 98-107 [facility] Comment on above: Performed By: #### C VDTBH #### [facility] [address] [address] [address] Grace Abdul CO2 [Moles/Vol] 28.1 mmol/L Normal 21.0-32.0 [facility] Comment on above: Performed By: #### C VDTBH #### [facility] [address] [place] [address] Dr. Grace Abdul Creatinine [Mass/Vol] 1.25 mg/dL Critically high 0.55-1.02 [facility] Comment on above: Performed By: #### C VDTBH #### [facility] [address] [address] [address] Grace Abdul EGFR-AF MALIAN 50 mL/min/1.73m2 Critically low >=60 [facility] Comment on above: Performed By: #### C VDTBH #### [facility] [address] [address] [address] Grace Abdul EGFR-NON AF MALIAN 41 mL/min/1.73m2 Critically low >=60 [facility] Comment on above: Performed By: #### C VDTBH #### [facility] [address] [address] [address] Grace Abdul Globulin (S) [Mass/Vol] 2.7 g/dL Normal [facility] Comment on above: Performed By: #### C VDTBH #### [facility] [address] [address] [address] Grace Abdul Glucose [Mass/Vol] 131 mg/dL Critically high 74-106 T [facility] Comment on above: Performed By: #### C VDTBH #### [facility] [address] [place] [address] Dr. Grace Abdul Potassium [Moles/Vol] 4.1 mmol/L Normal 3.5-5.1 [facility] Comment on above: Performed By: #### C VDTBH #### [facility] [address] [place] [address] Dr. Grace Abdul Protein [Mass/Vol] 6.5 g/dL Normal 6.4-8.2 [facility] Comment on above: Performed By: #### C VDTBH #### [facility] [address] [place] [address] Dr. Grace Abdul Sodium [Moles/Vol] 135 mmol/L Critically low 136-145 Th [facility] Comment on above: Performed By: #### C VDTBH #### [facility] [address] [place] [address] Dr. Grace Abdul Urea nitrogen [Mass/Vol] 33.0 mg/dL Critically high 7.0-18.0 [facility] Comment on above: Performed By: #### C VDTBH #### [facility] [address] [place] [address] Dr. Grace Abdul Urea nitrogen/Creatinine [Mass ratio] 26.4 mg/mg Normal [facility] Comment on above: Performed By: #### C VDTBH #### [facility] [address] [place] [address] Dr. Grace Abdul URINE MICROSCOPIC ONLYon BACTERIA NONE SEEN Normal NONE SEEN [facility] Comment on above: Performed By: #### C BC #### [facility] [address] [place] [address] Dr. Grace Abdul Bacteria identified Cx Nom (U) NOT INDICATED Normal [facility] Comment on above: Performed By: #### C BC #### [facility] [address] [place] [address] Dr. Grace Abdul CAST NONE SEEN Normal NONE SEEN [facility] Comment on above: Performed By: #### C BC #### [facility] [address] [address] [address] Grace Abdul Crystals LM Nom (Urine sed) NONE SEEN Normal NONE SEEN [facility] Comment on above: Performed By: #### C BC #### [facility] [address] [place] [address] Dr. Grace Abdul Epithelial cells LM Ql (Urine sed) FEW Abnormal NONE SEEN /RARE [facility] Comment on above: Performed By: #### C BC #### [facility] [address] [place] [address] Dr. Grace Abdul MUCOUS NONE SEEN Normal NONE SEEN [facility] Comment on above: Performed By: #### C BC #### [facility] [address] [place] [address] Dr. Grace Abdul RBC 0-2 Normal 0-2 [facility] Comment on above: Performed By: #### C BC #### [facility] [address] [place] [address] Dr. Grace Abdul WBC 0-2 Abnormal NONE SEEN [facility] Comment on above: Performed By: #### C BC #### [facility] [address] [place] [address] Dr. Grace Abdul XR CHEST 1 Von [...] Date: 2021-09-13 13:19 Normal [facility] CERV SP W/OBLS/FLEX/EXT 6 OR >on 12-12-2020 CERV SP W/OBLS/FLEX/EXT 6 OR > STUDY: CERV SP W/OBLS/FLEX/EXT 6 OR >; 12/12/2020 9:40 am INDICATION: NECK PAIN. COMPARISON: None. ACCESSION NUMBER(S): [id number] ORDERING CLINICIAN: Aiden Younger TECHNIQUE: AP, lateral, [...] findings. Dense left carotid artery calcifications. Normal [facility] Vital Signs Date Time Vital Sign Value Performing Clinician Aimee pollock 09-21-2022 12:51-0400 Diastolic blood pressure 60 mm[Hg] Carolyn Vanegas MD Work Phone: [facility] 09-21-2022 12:51-0400 Heart rate 67 /min Carolyn Vanegas MD Work Phone: [facility] 09-21-2022 12:51-0400 Systolic blood pressure 153 mm[Hg] Carolyn Vanegas MD Work Phone: [facility] 05-14-2022 14:24-0400 Diastolic blood pressure 87 mm[Hg] Marty Dozier DO Work Phone: [facility] 05-14-2022 14:24-0400 Heart rate 72 /min Marty Dozier DO Work Phone: [facility] 05-14-2022 14:24-0400 Systolic blood pressure 158 mm[Hg] Marty Dozier DO Work Phone: [facility] 05-14-2022 14:22-0400 Body height 152.4 cm Marty Dozier DO Work Phone: [facility] 05-14-2022 14:22-0400 Body weight 76.39 kg Marty Dozier DO Work Phone: [facility] 05-14-2022 14: SaO2% (BldA) [Mass fraction] 99 % Marty Dozier DO Work Phone: [facility] Encounters Encounter Date Encounter Type Care Provider Facility Start: 09-26-2023 End: 09-26-2023 ambulatory Lyn Quiñones MD [facility]: [facility] Start: 09-12-2023 End: 09-12-2023 ambulatory Lyn Quiñones MD Facility: [facility] Start: 08-18-2023 End: 08-18-2023 ambulatory Galina Rogers Facility:[facility] Start: 08-08-2023 End: 08-08-2023 ambulatory COLETTE [...] Start: 09-21-2022 End: 09-21-2022 ambulatory GALINA ROGERS Facility:[facility] Start: 09-21-2022 End: 09-21-2022 Patient encounter procedure [...] Start: 05-14-2022 End: 05-14-2022 ambulatory MARTY DOZIER Facility:[facility] Start: 05-14-2022 End: 05-14-2022 Patient encounter procedure [...] 09-12-2017 End: 09-13-2017 Patient encounter DEFAULT PHYSICIAN Facility:[facility] Plan of Treatment Date Care Activity Detail Author Start: 10-22-2022 Influenza vaccination INFLUENZA (#1) [facility] Start: 04-11-2022 COVID-19 VACCINE (6 - Moderna series) COVID-19 VACCINE (6 - Moderna series) [facility] Start: 02-21-2022 ADVANCE DIRECTIVE DISCUSSION ADVANCE DIRECTIVE DISCUSSION [facility] Start: 02-21-2022 DEPRESSION ASSESSMENT DEPRESSION ASS ESSMENT [facility] Start: 11-12-2017 PNEUMOCOCCAL: 65+ (2 - PPSV23 if available, else PCV20) PNEUMOCOCCAL: 65+ (2 - PPSV23 if available, else PCV20) [facility] Start: 11-12-2017 PNEUMOCOCCAL: 65+ (2 - PPSV23 or PCV20) PNEUMOCOCCAL: 65+ (2 - PPSV23 or PCV20) [facility] Start: 07-22-2017 SHINGRIX VACCINE (2 of 3) MANLEY GRIX VACCINE (2 of 3) [facility] Start: 04-30-2004 BONE DENSITY BONE DENSITY [facility] Start: 04-30-1984 DIABETES SCREEN DIABETES SCREEN [facility] Start: 04-30-1958 Urine microalbumin profile DTAP,TDAP ,TD (1 - Tdap) [facility] Immunizations Immunization Date Immunization Notes Care Provider Fa cility 12-02-2021 Influenza, injectabl e, Madin Carmina Canine Kidney, preservative free, quadrivalent Marty Mendis DO Work Phone: [facility] 11-28-2020 influenza virus vacc ine, unspecified formulation Marty Mendis DO Work Phone: [facility] 11-29-2019 Seasonal trivalent influenza vaccine, adjuvanted, preservative free Marty Guillaumeis DO Work Phone: [facility] 05-27-2017 zoster vaccine, live Marty Dozier DO Work Phone: [facility] 11-12-2016 pneumococcal conjuga te vaccine, 13 valent Marty Mendis DO Work Phone: [facility] Payers Date Payer Category Payer Private Health Insurance [facility] SUPPLE[facility] [id number] 2022-Present [phone] [address] [place] [address] Indemnity [id number] 2004 Medicare [id number] 2004 Unknown 1959 Medicare [id number] 1959 Self-pay 1959 Unknown [id number] 1939 Unknown [id number] 2.16.840.1.272049.3.579.2 .593 1939 Unknown [id number] 2.16.840.1.828058.3.579.2 .593 1939 Unknown [id number] 2.16.840.1.418985.3.579.2 .593 1939 Unknown [id number] 2.16.840.1.314864.3.579.2 .593 1939 Unknown [id number] 2.16.840.1.083719.3.579.2 .593 1939 Unknown [id number] 2.16.840.1.196972.3.579.2 .593 1939 Unknown [id number] 2.16.840.1.561467.3.579.2 .593 1939 Unknown [id number] 2.16.840.1.483574.3.579.2 .593 1939 Unknown [id number] 2.16.840.1.715048.3.579.2 .593 1939 Unknown [id number] 2.16.840.1.014198.3.579.2 .593 1939 Unknown [id number] 2.16.840.1.840781.3.579.2 .593 1939 Unknown [id number] 2.16.840.1.142843.3.579.2 .593 1939 Unknown [id number] 2.16.840.1.407929.3.579.2 .593 1939 Unknown [id number] 2.16.840.1.989672.3.579.2 .593 1939 Unknown [id number] 2.16.840.1.768702.3.579.2 .593 1939 Unknown [id number] 2.16.840.1.732788.3.579.2 .593 1939 Unknown [id number] 2.16.840.1.454950.3.579.2 .593 1939 Unknown [id number] 2.16.840.1.184656.3.579.2 .593 1939 Unknown [id number] 2.16.840.1.073890.3.579.2 .593 1939 Unknown [id number] 2.16.840.1.216988.3.579.2 .593 1939 Unknown [id number] 2.16.840.1.710062.3.579.2 .593 1939 Unknown [id number] 2.16.840.1.437581.3.579.2 .593 1939 Unknown [id number] 2.16.840.1.503777.3.579.2 .593 1939 Unknown [id number] 2.16.840.1.752625.3.579.2 .593 1939 Unknown [id number] 2.16.840.1.901212.3.579.2 .593 1939 Unknown [id number] 2.16.840.1.389904.3.579.2 .1259 1939 Unknown [id number] 2.16.840.1.146056.3.579.2 .1259 1939 Unknown [id number] 2.16.840.1.806574.3.579.2 .196 1939 Unknown [id number] 2.16.840.1.968986.3.579.2 .196 1939 Unknown [id number] 2.16.840.1.751272.3.579.2 .196 1939 Unknown [id number] 2.16.840.1.217103.3.579.2 .196 1939 Unknown [id number] 2.16.840.1.855181.3.579.2 .196 1939 Unknown [id number] 2.16.840.1.313780.3.579.2 .196 1939 Unknown [id number] 2.16.840.1.321113.3.579.2 .196 1939 Unknown [id number] 2.16.840.1.830106.3.579.2 .196 Social History Date Type Detail Facility Start: 05-14-2022 Tobacco smoking stat us NHIS Never smoked tobacco [facility] Start: 05-14-2022 Tobacco use and exposure Smoke less tobacco non-user [facility] Start: 05-14-2022 End: 09-21-2022 Alcohol intake Lifetime non-drinker (finding) [facility] Start: 1940 Sex Assigned At Not on file C [facility] Start: 05-09-2022 End: 09-21-2022 History of Social function [facility] Start: 05-09-2022 End: 09-21-2022 Tobacco use panel [facility] Adult Depression Scr eening Assessment 2 [facility] Clinical Notes 09-30-2021 to 09-21-2022 Patient InstructionsCarolyn Vanegas MD - 09/21/2022 12:43 PM Naa Alves PA-C - 08/26/2022 11:45 AM EDTTmonika Bowman - 08/19/2022 4:06 PM EDT Note Date & Type Note Facility 09-21-2022 Note HNO ID: [id number] Author: Carolyn Vanegas MD Service: ? Author [...] Health Percentile 1 (more content not included)... [facility] 09-21-2022 Instructions Carolyn Vanegas MD - [...] at this time. documented in this encounter [facility] 09-21-2022 History of Present illness [...] 4 - Moderate documented in this encounter [facility] 08-26-2022 Note HNO ID: [id number] Author: Kassandra Alves PA-C Service: ? Author Type: Physician Steel Tier Type: Progress Notes Filed: 08/26/2022 11:52 AM Note Text: Per Triage: Alexa Delgado is a 82 year old female that requests evaluation of spine. Per review, they have symptoms of lower back pain. Numbness/tingling right leg. Difficulty walking. Weakness Request: 1st available Referring provider: Galina Rogers MD Patient out of state: no 2nd opinion: no Prior spine surgery: yes 2006 [facility] Address: [address] [place] [address] CMT: PT Injections Tylenol Hydrocodone Studies (Reports [...] reviewed during the appt Kassandra Alves PA-C [facility] 08-26-2022 History of Present illness Narrative Per Triage: Alexa Delgado is a 82 year old female that requests evaluation of spine. Per review, they have symptoms of lower back pain. Numbness/tingling right leg. Difficulty walking. Weakness Request: 1st available Referring provider: Galina oRgers MD Patient out of state: no 2nd opinion: no Prior spine surgery: yes 2006 [facility] Address: [address] [place] [address] CMT: PT Injections Tylenol Hydrocodone Studies (Reports [...] Health Provider or Pain Management Provider at [facility]? No If answer is YES [...] the MRI/CT/myelogram was completed: [facility] Address: [address] [place] [address] MRI/CT/myelogram viewable in Epic: No If not, please provide [phone] to fax in imaging reports for review. [...] was completed PT Injection [facility] Address: [address] [place] [address] Have you tried any other kinds of [...] surgery was completed: 2006 [facility] Address: [address] [place] [address] Additional Comments documented in this encounter [facility] 08-19-2022 Note HNO ID: [id number] Author: Micheal Bowman Service: ? Author Type: ? Type: Progress Notes Filed: 08/26/2022 11:52 AM Note Text: Patient name: Alexa Delgado Are you being referred by a [facility] Spine Health Provider or Pain Management Provider at [facility]? No If answer is YES [...] the MRI/CT/myelogram was completed: [facility] Address: [address] [place] [address] MRI/CT/myelogram viewable in Epic: No If not, please provide [phone] to fax in imaging reports for review. [...] and/or physical therapy was completed PT Injection [facility] Address: [address] [place] [address] Have you tried any other kinds of [...] of where the surgery was completed: 2006 [facility] Address: [address] [place] [address] Additional Comments [facility] 07-16-2022 Note PROCEDURE: XR HIP RT [...] authenticated by: HERMES MENDOZA Date: 2022-07-16 11:28 [facility] 05-14-2022 Note HNO ID: [id number] Author: Marty Dozier, DO Service: ? Author Type: Physician Type: Progress Notes Filed: 05/15/2022 10:02 PM Note Text: [facility] Initial [...] Ratio: R>L low back Current Treatment: Medications Mendon 5-325 mg BID - helps Diclofenac 75 [...] but still has pain -01/28/22 Noemi Sequeira MANAGER STORE: BL Lumbar erector spinae TPI (0.125% Marcaine, [...] ongoing as of 04/17/21 -03/08/21 Noemi Sequeira MANAGER STORE: Left rhomboid TPI (0.125% Marcaine, 40 mg Kenalog) -02/03/21 LESI - moderate relief for 4 days Prior spine surgery: -2006 L4-5 Discectomy Previously treated by: -[facility], previously Dr. [...] today. She has an evaluation at the [facility] tomorrow at the Spine Center. RECOMMENDATIONS: We will see the patient back in the office after she undergoes evaluation there to discuss her treatment plan thereafter. We will see the patient back in the office in approximately four weeks' time or sooner if needed. PMH: Lumbar scoliosis Depression on Negrita (more content not included)... [facility] 05-14-2022 History of Present illness Narrative Images from the original note were not included. [facility] Initial [...] Ratio: R>L low back Current Treatment: Medications Mendon 5-325 mg BID - helps Diclofenac 75 [...] but still has pain -01/28/22 Noemi Sequeira MANAGER STORE: BL Lumbar erector spinae TPI (0.125% Marcaine, [...] ongoing as of 04/17/21 -03/08/21 Noemi Sequeira MANAGER STORE: Left rhomboid TPI (0.125% Marcaine, 40 mg Kenalog) -02/03/21 LESI - moderate relief for 4 days Prior spine surgery: -2006 L4-5 Discectomy Previously treated by: -[facility], previously Dr. [...] today. She has an evaluation at the [facility] tomorrow at the Spine Center. [...] reviewed 04/04/22 CT abd/pelvis with IV contrast, [facility], report: Abdominal wall: Old healed left pelvis fractures. Degenerative changes and scoliosis of the lumbar spine. IMPRESSION: No acute abdominal pathology. No acute inflammatory process. No obstructing urinary tract stone. No evidence for bowel obstruction. 11/15/21 XR abd, [facility], report: No acute osseous abnormality. There is moderate dextrocurvature of the lumbar spine. 05/08/2021 XR right hip/pelvis, [facility], report: Rotatory dextro scoliosis of [...] TIME: 3:15 PM documented in this encounter [facility] 05-13-2022 Note CONSULTATION CONSULTATION DATE: [...] mg at h.s., diclofenac 75 mg b.i.d., Mendon 5 mg b.i.d. EXAM: Notable for the [...] today. She has an evaluation at the [facility] tomorrow at the Spine Center. RECOMMENDATIONS: We will see the patient back in the office after she undergoes evaluation there to discuss her treatment plan thereafter. We will see the patient back in the office in approximately four weeks' time or sooner if needed. [facility] 04-06-2022 Note CONSULTATION CONSULTATION DATE: [...] to kidney dysfunction also. The patient takes Mendon, however, is very controlled and limits it to the point of detriment. Education was done. The patient was instructed to take the Mendon to a b.i.d. to t.i.d. basis. The [...] b.i.d. basis. The patient may increase the Mendon to 5/325 t.i.d. We will schedule the [...] CC: Galina Rogers M.D. [facility] 03-11-2022 Note CONSULTATION CONSULTATION DATE: [...] gave improvement for 24 hours. Medications include Mendon 5/325 b.i.d., diclofenac 75 mg b.i.d., citalopram [...] back pain. PLAN: We will refill her Mendon 5/325 b.i.d. We will prescribe her Buderer cream with gabapentin, ketorolac and prilocaine/lidocaine to be placed over her right knee. We will trial Requip 0.25 mg q.h.s. We will see the patient in the clinic in three months' time unless otherwise indicated. Patient agrees with the plan. [facility] 01-28-2022 Note CONSULTATION CONSULTATION DATE: [...] daily which decreases her pain. Medications include Mendon 5/325 b.i.d., Flexeril 5 mg b.i.d., diclofenac [...] does consent to. We will refill the Mendon 5/325 b.i.d. We will pre-authorize for a right genicular nerve block under fluoroscopy. Patient will follow up in the clinic thereafter. [facility] 01-28-2022 Note CONSULTATION PROCEDURE DATE: [...] up in the office. [facility] 12-31-2021 Note CONSULTATION CONSULTATION DATE: [...] Current medications include diclofenac 75 mg b.i.d., Mendon 5/325 b.i.d., citalopram, Flexeril and multivitamin regimen. The patient does state that she breaks her Mendon in half and the most she takes [...] like to move forward. [facility] 09-30-2021 Note CONSULTATION CONSULTATION DATE: 09/30/2021 This is a very [id number] female accompanied by her returning to the [...] Current medications include diclofenac 50 mg b.i.d., Mendon 5/325 b. i.d. and Tylenol. She does [...] at 25 mg q.h.s. Refill for her Mendon 5/325 b.i.d. will be sent as well. The patient is to continue with her vitamin regimen which she is currently compliant with, as well as heat application and pool exercises. The patient will be followed up in the office in three months' time unless otherwise indicated. The patient agrees with the plan of care. [facility] Evaluation note Diagnosis Chronic bilateral low back pain with right-sided sciatica- Primary Back pain, lumbosacral Lumbago Chronic sacroiliac joint pain Disorders of sacrum Lumbar spondylosis Lumbosacral spondylosis without myelopathy Scoliosis of lumbar spine, unspecified scoliosis type [facility] Spinal stenosis, lumbar region with neurogenic claudication- Primary Spondylolisthesis, lumbar region Other idiopathic scoliosis, lumbar region [facility] Diagnosis Obesity, Class I, BMI 30-34.9- Primary Obesity, unspecified Spinal stenosis, lumbar region with neurogenic claudication documented in this encounter [facility] Summary Purpose Family History No [...] By Contac t Referred To Contact [facility] [place] Diagnoses Spinal stenosis, lumbar region with neurogenic claudication Procedures [facility]SULT TO [facility]) OFFICE/OUTPATIENT [facility] MDM 60-74 MINUTES Carolyn Vanegas MD [address] [place] [address] Referral ID Status Reason Start Date Expiration Date Visits Requested Visits Authorized [id number] Pending Review PCP Requested Referral 09/21/2022 09/21/2023 1 1 Additional Source Comments INFORMATION SOURCE (unrecogn ized section and content) DATE CREATED AUTHOR 09/13/2017 [facility] DATE CREATED AUTHOR AUTHOR'S ORGANIZ ATION 12/13/2020 [facility] DATE CREATED AUTHOR AUTHOR'S ORGANIZ ATION 07/30/2022 [facility] pital DATE CREATED AUTHOR AUTHOR'S ORGANIZ ATION 09/22/2022 [facility] DATE CREATED AUTHOR AUTHOR'S ORGANIZ ATION 08/13/2023 [facility] dical [facility] DATE CREATED AUTHOR AUTHOR'S ORGANIZ ATION 08/25/2023 [facility] DATE CREATED AUTHOR AUTHOR'S ORGANIZ ATION 10/10/2023 [facility] Source Comments (unrecognize d section and content) In the event this informatio n is protected by the Federal Confidentiality of Alcohol and Drug Abuse Patient Records regulations: The Federal rules restrict any use of the information to criminally investigate or prosecute any alcohol or drug abuse patient.[facility] the event this information is protected by the Federal Confidentiality of Alcohol and Drug Abuse Patient Records regulations: The Federal rules restrict any use of the information to criminally investigate or prosecute any alcohol or drug abuse patient.[facility] the event this information is protected by the Federal Confidentiality of Alcohol and Drug Abuse Patient Records regulations: The Federal rules restrict any use of the information to criminally investigate or prosecute any alcohol or drug abuse patient.[facility] Reason for Visit (unrecogniz ed section and content) Reason Comments New Patient Evaluation Low Back Pain Reason Comments New Patient Care Teams (unrecognized sec tion and content) Allergy Nurse Relationship Specialty Start Date End Date Galina Rogers MD [address] [place] [phone] PCP - General Family Medicine 05/14/22 Colette De Leon Jr., DO [address] [facility] [address] [place], [place] [phone] Referring Orthopedics 05/03/22 Porsha Garcia [address] [address] Pain Management 05/14/22 Colette De Leon Jr., DO [address] [facility] [facility] [address] [place] [address] Orthopedics 05/14/22 Allergy Nurse Relationship Specialty Start Date End Date Galina Rogers MD [address] [place] [address] PCP - General Family Medicine 05/14/22 Colette De Leon Jr., DO [address] [place] [address] Referring Orthopedics 05/03/22 Lakshmipathy, Narendranath [address] [place] [phone] Pain Management 05/14/22 Colette De Leon Jr., DO [address] [place] [address] Orthopedics 05/14/22 Galina Rogers MD [address] [place] [address] Referring Family Medicine 08/11/22 Allergy Nurse Relationship Specialty Start Date End Date Galina Rogers MD [address] [place] [address] PCP - General Family Medicine 05/14/22 Colette De Leon Jr., DO [address] [place] [address] Referring Orthopedics 05/03/22 Tereshmipathy, Narendranath [address] [place] [address] [place] [address], [place] [phone] Pain Management 05/14/22 Colette De Leon Jr., DO [address] [place] [address] Orthopedics 05/14/22 Galina Rogers MD [address] [place] [phone] Referring Family Medicine 08/11/22 FOR RECORDS PERTAINING [...] BE BASED ON THE PRIMARY CLINICAL RECORDS. [employer] [facility]. provides no warranty or guarantee of the accuracy or completeness of information in this document.
[2023-10-25] MEDS: REGADENOSON 0.4 MG/5 ML SYRINGE IV (09:52)
--- NOTE | 2023-10-25 10:01 | PC.NURSE ---
Nursing Note Cardiac Stress Test Reviewed: Medication, allergies and patient history reviewed. Stress Test: [ x] Patient tolerated stress test well. [ x] Patient unable to tolerate walking on treadmill. Switched to Lexiscan stress test. [ ] No chest pain noted per patient [ ] Chest pain that resolved prior to leaving stress lab. [ x] No dyspnea noted. [ ] Dyspnea that resolved prior to leaving stress lab. [ x] Patient left stress lab asymptomatic and hemodynamically stable. [ ] Patient taken to the Emergency Room due to non-resolving symptoms following stress test. [ ] Patient achieved target heart rate. [ ] Patient unable to achieve target heart rate. [ ] Aminophylline administered as reversal agent to Lexiscan (Regadenoson). [ ] Nitro administered. Nursing Comments:Pt had Lexiscan stress done. Pt had some heaviness after the lexiscan but this resolved within 2 minutes after injection.
--- NOTE | 2023-10-25 12:45 | P.STRESS_ITS ---
Stress Test Stress Test Allergies Allergy/AdvReac Type Severity Reaction Status Date / Time Penicillins Allergy Severe Hives Verified 10/12/23 21:45 codeine AdvReac Intermediate Dizziness Verified 10/12/23 21:45 fluconazole [From Diflucan] AdvReac Intermediate Hives Verified 09/26/23 10:50 quinine [From Quinamm] AdvReac Mild Headache Verified 10/12/23 21:45 decongest multi-action AdvReac Mild Headache Uncoded 10/12/23 21:45 Requesting physician: Luis Rogers Procedure: Lexiscan Cardiolite stress test General Information: Reason for Stress Test: Chest pain Cardiac History and Risk Factors: History of stroke, hypertension. Parents had [place]. Resting 12 - Lead Electrocardiogram: Rate & rhythm: Normal sinus at a rate of 72. [place]: Normal T-waves: Inverted in aVL ST-segments: Normal orientation Stress Test: Protocol: Lexiscan protocol was initiated with injection of 0.4mg Lexiscan IV push followed by Cardiolite. Blood pressure: Initial: 130/72, Maximum: 148/88 Rate & rhythm: Patient remained in sinus rhythm during the exercise and recovery portions of the study.? The maximum heart rate was 104, which was 70% of the maximum predicted heart rate. PVC was noted. ST-segments & T-waves: The inverted T-waves in aVL assumed a positive orientation after administration of Lexiscan. There were no other changes noted. Patient response/symptoms: There were no symptoms similar to the chief complaint. Interpretation: Normal Lexiscan stress test without electrocardiographical evidence of ischemia. Patient was asymptomatic regarding chief complaint. Cardiolite imaging interpretation will be reported separately. Clinical correlation required.
== END 2023-10-25 07:49 | disposition home or self-care (01) ==
LOC: NM 07:48
PROVIDERS: PCP Family Medicine; Visit Provider Family Medicine
DX: R07.9 Chest pain, unspecified (principal)
CPT/HCPCS: 78452; 93017; A9500; J2785

== ENCOUNTER 2023-11-04 07:27 | Outpatient (RCR) | payer MEDICARE, SELFPAY ==
[2023-11-04 10:01] VITALS: BP 176/75; PULSE 87; TEMP 37.1; O2SAT 94
[2023-11-04] MEDS: DENOSUMAB 60 MG/ML SYRINGE SQ (10:09)
== END 2023-11-21 23:59 | disposition home or self-care (01) ==
LOC: INF 07:27
PROVIDERS: PCP Family Medicine; Visit Provider Family Medicine
DX: M81.0 Age-related osteoporosis without current pathological fracture (principal)
CPT/HCPCS: 96372; J0897

== ENCOUNTER 2023-11-11 12:31 | Outpatient (OUT) | payer MEDICARE, SELFPAY ==
--- NOTE | 2023-11-11 12:35 | VEIN_ITS ---
Patient Name: KARINA CORMIER MR#: [id number] : 1940 Exam Date: 11/11/2023 Ordering Doctor: DR GALINA PALMER . RADIOLOGY REPORT PROCEDURE: VC EXT VENOUS REFLUX CLEMENCIA LMTD COMPARISON: None. INDICATIONS: R60.0 TECHNIQUE: Duplex imaging of the lower extremity to assess the deep and superficial venous system for the presence of deep or superficial venous incompetence and to document the location and severity of disease. The study includes evaluation of the great saphenous vein (GSV), anterior accessory saphenous vein (AASV) and small saphenous vein (SSV). Patient scanned in reverse Trendelenburg and standing. FINDINGS: RIGHT LOWER EXTREMITY: Saphenofemoral Junction Reflux: Yes 6.4mm 2.0 sec GSV: Diam (mm) Reflux/ Time (sec) Proximal Thigh 4.4 Yes 1.0 Mid Thigh 3.9 Yes 0.5 Distal Thigh 2.8 No Prox Calf 2.5 No Mid Calf 1.6 Saphenopopliteal Junction Reflux: 5.5mm Yes 1.7 SSV: Proximal Calf 6.3 Yes 1.2 Mid Calf 3.2 No AASV: Proximal Thigh 2.4 No Mid Thigh 1.3 No Distal Thigh Thrombi: No acute or chronic thrombus visualized Compressibility: Normal Flow: Normal Preforator: Mid/med calf 2.2mm with 1.0s reflux. Tech Note: Incompetent SSV. Patent varicose vein mid/med calf 2.6mm with 1.2s reflux. Patent varicose vein mid/med thigh 3.1mm with 0s reflux. LEFT LOWER EXTREMITY: Saphenofemoral Junction Reflux: Yes 6.2 mm 1.9 sec GSV: Diam (mm) Reflux/Time (sec) Proximal Thigh 3.9 Yes 0.8 Mid Thigh 4.3 No Distal Thigh 3.0 Yes 1.4 Prox Calf 2.4 Yes 0.7 Mid Calf 1.8 Yes 0.6 Saphenopopliteal Junction Relux: 3.4 mm No SSV: Proximal Calf 2.7 No Mid Calf 1.4 No AASV: Proximal Thigh 4.6 No Mid Thigh 3.0 No Distal Thigh Thrombi: No acute or chronic thrombus visualized Compressibility: Normal Flow: Normal [place]: Dist/med calf 3.3mm with 0s reflux. Tech Note: Patent varicose vein prox/med calf 2.8mm with 2.2s reflux. Patent varicose vein mid/med thigh 2.1mm with 0.7s reflux. CONCLUSION: 1. Mild bilateral great saphenous vein venous insufficiency without dilatation 2. Mild right small saphenous vein venous insufficiency with mild dilatation Dictated by: Nando Suarez MD on 11/11/2023 at 14:23 Approved by: Nando Suarez MD on 11/11/2023 at 14:24
--- OUTSIDE RECORDS SUMMARY | 2023-11-11 12:42 | XMS_ITS | CCD ---
Author Organization [facility] Care Team Providers Care Steak Tenderizer Machine Name Role Phone PHYSICIAN, DEFAULT Unavailable Unavailable PHYSICIAN, DEFAULT Unavailable Unavailable Haley Matos DO, George Cajetan Unavailable Galina Rogers MD Primary Care Provider Lakshmipathy, Narendranath Unavailable [phone] Haley Matos DO, George Cajeaydee Unavailable ESTELA [...] MOJICA Primary Care Unavailable BECKWITH ., DR NKIO Austin Attending Unavailable BECKWITH ., DR NIKO [...] Unavailable DORY, DR KRANTHI Gaona Consulting Unavailable HOAshlie ., DR MOJICA Primary [...] Unavailable HOY ., DR MOJICA Consulting Unavailable PONDERAY, DR HERMES Jean Baptiste Consulting Unavailable LATANYA ., DR NIKO Austin Attending Unavailable LATANYA ., DR NIKO Austin Admitting Unavailable SEQUEIRA ., NOEMI Consulting Unavailable ESTELA ., DR MOJICA Primary Care Unavailable Haley Matos, Colette MOORE Unavailable Galina Rogers MD Unavailable GALINA ROGERS Primary Care Unavailable CAROLYN VANEGAS Attending Unavailable MARTY DOZIER Attending Unavailable JR. HALEY, COLETTE Dorman Attending Unavaila rukhsana DE LEON JR., COLETTE Dorman Referring Unavaila rukhsana Quiñones MD, Andrius Adams Attending Unavailable Ishmael MEANS, Andrius Adams Attending Unavailable Ishmael MEANS, Andrius Bryan Attending Unavailable Ishmael MEANS, Andrius Bryan Attending Unavailable Ishmael MEANS, Andrius Bryan Attending Unavailable Ishmael MEANS, Andrius Adams Attending Unavailable Ishmael MEANS, Lyn Adams Attending Unavailable Ishmael MEANS, Lyn Adams Attending Unavailable Galina Rogers Attending Unavailable Galina Rogers Admitting Unavailable Allergies Allergy Classification Reported Allergen(s) Allergy Type Date of Onset Reaction(s) Facility (4 sources) Codeine; Translations: [CODEINE] Drug Allergy 3 Unknown [facility] (4 sources) Penicillins; Translations: [PENICILLINS] Drug Allergy 3 Unknown [facility] (4 sources) pregabalin; Translations: [PREGABALIN] Drug Allergy 3 Intolerance [facility] Work Phone: (4 sources) Propoxyphene; Translations: [PROPOXYPHENE] Drug Allergy 3 Rash, Unknown [facility] (4 sources) quiNINE; Translations: [QUINAMM] Drug Allergy 3 GI Upset [facility] (5 sources) Decongest Multi-Action; Translations: [Decongest Multi-Action] Drug Allergy 3 Other: See Comments [facility] (1 source) Acetaminophen / HYDROcodone Drug Allergy [facility] (2 sources) Codeine Drug Allergy 3 [facility] (1 source) Fluconazole Drug Allergy [facility] (2 sources) Penicillins Drug allergy (disorder) 3 [facility] (1 source) pregabalin Drug Allergy [facility] (2 sources) Propoxyphene Drug Allergy [facility] (1 source) quiNINE Drug Allergy [facility] Medications Completed/Discontinued Medications Medication Drug Class(es) [...] Comment on above: Take 1 tablet by [facility] twice daily as needed. aspirin 81 mg [...] above: Take by mouth twice daily. 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; Translations: [OTH HALF-WAY CURRENT DRUG THERAPY] Onset: 04-06-2022 Episodic Other [...] [id number] Received: 08/22/23 Status: SOUT Req Num: [id number] Spec Type: Impression Subm Dr: Galina Rogers MD Tissues: PATHPER Procedures: PATHREVIEW Age/ Patient Sex Location Account Attending Physician Alexa Delgado 83/F [place] [id number] Galina Rogers MD SPEC NUM: [id number] RECD: 08/22/23 STATUS: SOUT REQ NUM: [id number] JANET: 08/18/[address]: Galina Rogers MD ENTERED: 08/22/23-1058 [facility] DR: Annie Rivas SPEC TYPE: Impression DEPT: SHELLIE Simmons ENTERED BY: [id number] RECV BY: [id number] ORDERED: PATHREVIEW ORDERED: PATHREVIEW Pathologist Review Abnormal [...] initial report for the needed correction CPT: 03879 ---- ---- Specimen: [id number] Received: 08/22/23 Status: SOUAinsley Rejose Num: [id number] Spec Type: Impression Subm Dr: Galina Rogers MD Tissues: PATHPER Procedures: PATHREVIEW ---- Patient: Alexa Delgado [id number] (Continued) ---- Signed (signature on file) [place] Abdul MD 08/24/23918 [place] [facility] Office Visit ([facility]AD[facility] ) ALEXA DELGADO ([id number]) 1940 F Date Time Provider Department 09/21/22 1:00 PM CAROLYN VANEGAS [facility] During your visit today, we recorded [...] Percentile 2 (more content not included)... Normal [facility] XR LSPINE 2_3 VIEWSon 2022 XR [...] by: HERMES MENDOZA Date: 2022-07-16 11:34 Normal [facility] CNOVon 05-14-2022 CNOV Office Visit (SPMESH ) ALEXA DELGADO ([id number]) 1940 F Date Time Provider Department 05/14/22 2:30 PM MARTY DOZIER During your visit today, we recorded the following information about you: Pulse Blood pressure Weight Height 72/minute 158/87 76.4 kg 1.524 m Marty Dozier DO 05/15/2022 10:02 PM Signed [facility] Sp[facility] Initial [...] Ratio: R>L low back Current Treatment: Medications [place] 5-325 mg BID - helps Diclofenac 75 [...] but still has pain -01/28/22 Noemi Sequeira [employer]AST[employer]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 Niko Beckwith [...] today. She has an evaluation at the [facility] tomorrow at the Spine Center. RECOMMENDATIONS: We will see the pat (more content not included)... Normal [facility] CULTURE URINEon 04-05-2022 CULTURE URINE Culture Observations : LIGHT GROWTH OF MIXED GENITAL ALANIS. NO POTENTIAL PATHOGENS SEEN. Normal [facility] Comment on above: Performed By: #### U RCX ####[facility] [address] [place], [place] [address]Qx. Grace Abdul UA RANDOM W/MICROSCOPICon BACTERIA NONE SEEN Normal NONE SEEN [facility] Comment on above: Performed By: #### U AMIC ####[facility] [address] [place] [address]Dr. Grace Abdul Bilirubin Ql (U) Negative Normal NEGATIVE [facility] Comment on above: Performed By: #### U AMIC ####[facility] [address] [place] [address]Dr. Grace Abdul CAST NONE SEEN Normal NONE SEEN [facility] Comment on above: Performed By: #### U AMIC ####[facility] [address] [place], [place] [address]Dr. Grace Abdul Clarity (U) CLEAR Normal CLEAR [facility] Comment on above: Performed By: #### U AMIC ####[facility] Kw[address] [place], [place] [address]Dr. Grace Abdul Color (U) YELLOW Normal YELLOW [facility] Comment on above: Performed By: #### U AMIC ####[facility] Vxf[address] [place], [place] [address]Dr. Grace Abdul Crystals LM Nom (Urine sed) NONE SEEN Normal NONE SEEN [facility] Comment on above: Performed By: #### U AMIC ####[facility] [address] [place], [place] [address]Dr. Grace Abdul Epithelial cells LM Ql (Urine sed) RARE Normal NONE SEEN /RARE [facility] Comment on above: Performed By: #### U AMIC ####[facility] [address] [place], [place] [address]Dr. Grace Abdul Glucose Ql (U) Negative Normal NEGATIVE [facility] Comment on above: Performed By: #### U AMIC ####[facility] [address] [place], [place] [address]Dr. Grace Abdul Hemoglobin Ql (U) MODERATE Abnormal NEGATIVE [facility] Comment on above: Performed By: #### U AMIC ####[facility] [address] [place], [place] [address]Dr. Grace Abdul Ketones Ql (U) TRACE Abnormal NEGATIVE [facility] Comment on above: Performed By: #### U AMIC ####[facility] [address] [place], [place] [address]Dr. Grace Abdul LEUKOCYTES TRACE Abnormal NEGATIVE [facility] Comment on above: Performed By: #### U AMIC ####[facility] [address]fp[address]zgfe[address] [place] [address]Dr. Grace Abdul MUCOUS NONE SEEN Normal NONE SEEN [facility] Comment on above: Performed By: #### U AMIC ####[facility] [address]frw[address]wg[address] [place] [address]Dr. Benitalee ann Abdul Nitrite Ql (U) Negative Normal NEGATIVE [facility] Comment on above: Performed By: #### U AMIC ####[facility] [address]wmnmepnfj[address] [place] [address]Dr. Benitalee ann Abdul pH (U) 5.0 [pH] Normal 5-9 [facility] Comment on above: Performed By: #### U AMIC ####[facility] Xqclqiryam[address] [place] [address]Dr. Grace Abdul RBC 0-2 Normal 0-2 [facility] Comment on above: Performed By: #### U AMIC ####[facility] [address] [place], [place] [address]Dr. Grace Abdul SPEC GRAVITY 1.015 Normal 1.005-<=1.025 [facility] Comment on above: Performed By: #### U AMIC ####[facility] [address]otxik[address] [place] [address]Dr. Grace Abdul UA PROTEIN Negative Normal NEGATIVE/ TRACE [facility] Comment on above: Performed By: #### U AMIC ####[facility] Rheklmnipj[address] [place] [address]Dr. Benitalee ann Abdul Urobilinogen Qn (U) 0.2 {Ashley'U}/dL Normal 0.2 - 1. 0 [facility] Comment on above: Performed By: #### U AMIC ####[facility] [address] [place], [place] [address]Dr. Grace Abdul WBC 0-2 Abnormal NONE SEEN [facility] Comment on above: Performed By: #### U AMIC ####[facility] [address] [place], [place] [address]Dr. Grace Abdul CBC AUTO DIFFon 04-04-2022 BASO # 0.0 103/ul Normal 0.0-0.1 [facility] Comment on above: Performed By: #### C BC ####[facility] [address] [place] [id number]. Grace Abdul Basophils/100 WBC (Bld) 0.4 % Normal 0.2-2.0 [facility] Comment on above: Performed By: #### C BC ####[facility] [address] [place] [id number]. Grace Franko EO # 0.1 103/ul Normal 0.0-0.7 [facility] Comment on above: Performed By: #### C BC ####[facility] [address]oix[address] [place] [address]Dr. Grace Franko Eosinophils/100 WBC (Bld) 1.3 % Normal 0.9-7.0 [facility] Comment on above: Performed By: #### C BC ####[facility] Xayxhcmaxj[address] [place] [address]Dr. Grace Abdul Erythrocyte distribution width (RBC) [Ratio] 13.7 % Normal 11.0-15.0 [facility] Comment on above: Performed By: #### C BC ####[facility] [address]eg[address]axrqiv[address] [place] [id number]. Grace Abdul Hematocrit (Bld) [Volume fraction] 37.2 % Normal 36.0-48.0 [facility] Comment on above: Performed By: #### C BC ####[facility] Fqfbxnccyj[address] [place] [id number]. Grace Abdul Hemoglobin (Bld) [Mass/Vol] 12.4 g/dL Normal 12.0-16.0 [facility] Comment on above: Performed By: #### C BC ####[facility] [address]zmu[address] [place] [id number]. Grace Franko IG # 0.02 10e3/ul Normal 0.00-0.03 [facility] Comment on above: Performed By: #### C BC ####[facility] [address]jse[address] [place] [id number]. Grace Abdul IG % 0.4 % Normal 0.0-0.5 [facility] Comment on above: Performed By: #### C BC ####[facility] [address] [place], [place] [address]Qz. Grace Abdul LYMPH # 0.8 103/ul Critically low 1.2-3.8 [facility] Comment on above: Performed By: #### C BC ####[facility] Lunmjoduej[address] [place] [id number]. Grace Abdul Lymphocytes/100 WBC (Bld) 13.9 % Critically low 20.5-60.0 [facility] Comment on above: Performed By: #### C BC ####[facility] [address]qtf[address] [place] [id number]. Grace Abdul MANUAL DIFF REQ NO Normal [facility] Comment on above: Performed By: #### C BC ####[facility] [address]yin[address]cnp[address] [place] [id number]. Grace Abdul MCH (RBC) [Entitic mass] 30.5 pg Normal 26.7-34.0 [facility] Comment on above: Performed By: #### C BC ####[facility] Petnsjcmel[address] [place] [id number]. Grace Abdul MCHC (RBC) [Mass/Vol] 33.3 g/dL Normal 29.9-35.2 [facility] Comment on above: Performed By: #### C BC ####[facility] [address]soqtv[address] [place] [id number]. Grace Abdul MCV (RBC) [Entitic vol] 91.4 fL Normal 81.0-99.0 [facility] Comment on above: Performed By: #### C BC ####[facility] [address]wk[address] [place] [id number]. Grace Abdul MONO # 0.7 103/ul Normal 0.3-0.8 [facility] Comment on above: Performed By: #### C BC ####[facility] Mfwxpzznyd[address] [place] [id number]. Grace Abdul Monocytes/100 WBC (Bld) 13.5 % Critically high 1.7-12.0 [facility] Comment on above: Performed By: #### C BC ####[facility] [address]eviq[address]wy[address] [place] [id number]. Grace Abdul NEUT # 3.8 103/ul Normal 1.4-6.5 [facility] Comment on above: Performed By: #### C BC ####[facility] Rcvncknywg[address] [place] [id number]. Grace Abdul Neutrophils/100 WBC (Bld) 70.5 % Normal 43.0-75.0 [facility] Comment on above: Performed By: #### C BC ####[facility] [address]wcy[address]jpom[address] [place] [phone]. Grace Abdul Platelet mean volume (Bld) [Entitic vol] 9.0 fL Critically low 9.5-13.5 [facility] Comment on above: Performed By: #### C BC ####[facility] B[address]ays[address] [place] [id number]. Grace Abdul PLT 283 103/ul Normal 150-450 [facility] Comment on above: Performed By: #### C BC ####[facility] Lqrvfjsjkv[address] [place] [phone]. Grace Abdul RBC 4.07 106/ul Critically low 4.20-5.40 [facility] Comment on above: Performed By: #### C BC ####[facility] In[address] [place], [place] [address]Dr. Grace Abdul WBC 5.4 103/ul Normal 4.0-11.0 [facility] Comment on above: Performed By: #### C BC ####[facility] [address]zwkj[address] [place] [id number]. Grace Abdul CT ABD/PELV W CONon 04-04-19 [...] EMILY NAVARRETE Date: 2022-04-04 16:59 Normal [facility] ER URINE PROFILEon 3 Bilirubin Ql (U) Negative Normal NEGATIVE [facility] Comment on above: Performed By: #### ROBERT FELDER ####[facility] [address] [place], [place] [address]Yk. Grace Abdul Clarity (U) CLEAR Normal CLEAR [facility] Comment on above: Performed By: #### ROBERT FELDER ####[facility] [address] [place], [place] [address]EfLisette Abdul Color (U) LT. YELLOW Normal YELLOW [facility] Comment on above: Performed By: #### ROBERT FELDER ####[facility] [address] [place] [address]Dr. Grace HIGGINS A micrscopic examination will be performed if indicated. Normal [facility] Comment on above: Performed By: #### ROBERT FELDER ####[facility] [address]ijfl[address] [place] [address]Dr. Grace Abdul Glucose Ql (U) Negative Normal NEGATIVE [facility] Comment on above: Performed By: #### ROBERT FELDER ####[facility] Jakqkm[address]nz[address] [place] [address]Dr. Grace Abdul Hemoglobin Ql (U) SMALL Abnormal NEGATIVE [facility] Comment on above: Performed By: #### ROBERT FELDER ####[facility] [address]ff[address] [place] [address]Dr. Grace Abdul Ketones Ql (U) Negative Normal NEGATIVE [facility] Comment on above: Performed By: #### ROBERT FELDER ####[facility] [address] [place], [place] [address]Dr. Grace Abdul LEUKOCYTES TRACE Abnormal NEGATIVE [facility] Comment on above: Performed By: #### ROBERT FELDER ####[facility] [address] [place], [place] [address]Dr. Grace Abdul Nitrite Ql (U) Negative Normal NEGATIVE [facility] Comment on above: Performed By: #### ROBERT FELDER ####[facility] R[address]ybxrsdz[address] [place] [address]Dr. Grace Abdul pH (U) 7.5 [pH] Normal 5-9 [facility] Comment on above: Performed By: #### ROBERT FELDER ####[facility] [address] [place], [place] [address]Dr. Grace Abdul SPEC GRAVITY 1.005 Normal 1.005-<=1.025 [facility] Comment on above: Performed By: #### ROBERT FELDER ####[facility] [address] [place], [place] [address]Dr. Grace Abdul UA PROTEIN Negative Normal NEGATIVE/ TRACE [facility] Comment on above: Performed By: #### ROBERT FELDER ####[facility] Hzjhnfnbin[address] [place] [address]Dr. Grace Abdul UR MICRO IND INDICATED Normal [facility] Comment on above: Performed By: #### ROBERT FELDER ####[facility] [address]qkykomv[address] [place] [address]Dr. Grace Abdul Urobilinogen Qn (U) 0.2 {Ashley'U}/dL Normal 0.2 - 1. 0 [facility] Comment on above: Performed By: #### ROBERT FELDER ####[facility] [address] [place], [place] [address]Dr. Grace Abdul LIPASEon 04-04-2022 Lipase [Catalytic activity/Vol] 115.0 U/L Normal 73.0-393.0 [facility] Comment on above: Performed By: #### C JOETB #### [facility] [address] [place] [address] Dr. Grace Abdul PROF 14(COMP METB)on 023 Albumin [Mass/Vol] 3.6 g/dL Normal 3.4-5.0 [facility] Comment on above: Performed By: #### Lakia DIAZTBH #### [facility] [address] [place] [address] Dr. Grace Abdul Albumin/Globulin [Mass ratio] 1.1 {ratio} Normal [facility] Comment on above: Performed By: #### C VDTBH #### [facility] [address] [place] [address] Dr. Grace Abdul ALP [Catalytic activity/Vol] 74 U/L Normal 46-116 [facility] Comment on above: Performed By: #### C VDTBH #### [facility] [address] [place] [address] Dr. Grace Abdul ALT [Catalytic activity/Vol] 23 U/L Normal 14-59 [facility] Comment on above: Performed By: #### C VDTBH #### [facility] [address] [place] [address] [address] Grace Abdul Anion gap [Moles/Vol] 12.1 mmol/L Normal [facility] Comment on above: Performed By: #### C VDTBH #### [facility] [address] [place] [address] [address] Grace Abdul AST [Catalytic activity/Vol] 21 U/L Normal 15-37 [facility] Comment on above: Performed By: #### C VDTBH #### [facility] [address] [place] [address] [address] Grace Abdul Bilirubin [Mass/Vol] 0.2 mg/dL Normal 0.2-1.0 [facility] Comment on above: Performed By: #### C VDTBH #### [facility] [address] [place] [address] Dr. Garce Abdul Calcium [Mass/Vol] 9.3 mg/dL Normal 8.5-10.1 [facility] Comment on above: Performed By: #### C VDTBH #### [facility] [address] [place] [address] Dr. Grace Abdul Chloride [Moles/Vol] 99 mmol/L Normal 98-107 [facility] Comment on above: Performed By: #### C VDTBH #### [facility] [address] [place] [address] Dr. Grace Abdul CO2 [Moles/Vol] 31.2 mmol/L Normal 21.0-32.0 [facility] Comment on above: Performed By: #### C VDTBH #### [facility] [address] [place] [address] Dr. Grace Abdul Creatinine [Mass/Vol] 1.22 mg/dL Critically high 0.55-1.02 [facility] Comment on above: Performed By: #### C VDTBH #### [facility] [address] [place] [address] [address] Grace Abdul EGFR-AF SOUTH [place]OREAN 51 mL/min/1.73m2 Critically low >=60 [facility] Comment on above: Performed By: #### C VDTBH #### [facility] [address] [place] [address] [address] Grace Abdul EGFR-NON AF [place]ORE[place] 42 mL/min/1.73m2 Critically low >=60 [facility] Comment on above: Performed By: #### C VDTBH #### [facility] [address] [place] [address] [address] Grace Abdul Globulin (S) [Mass/Vol] 3.3 g/dL Normal [facility] Comment on above: Performed By: #### C VDTBH #### [facility] [address] [place] [address] [address] Grace Abdul Glucose [Mass/Vol] 115 mg/dL Critically high 74-106 [facility] Comment on above: Performed By: #### C VDTBH #### [facility] [address] [place] [address] Dr. Grace Abdul Potassium [Moles/Vol] 3.3 mmol/L Critically low 3.5-5.1 [facility] Comment on above: Performed By: #### C VDTBH #### [facility] [address] [place] [address] [address] Grace Abdul Protein [Mass/Vol] 6.9 g/dL Normal 6.4-8.2 [facility] Comment on above: Performed By: #### C VDTBH #### [facility] [address] [place] [address] [address] Grace Abdul Sodium [Moles/Vol] 139 mmol/L Normal 136-145 [facility] Comment on above: Performed By: #### C VDTBH #### [facility] [address] [place] [address] [address] Grace Abdul Urea nitrogen [Mass/Vol] 23.0 mg/dL Critically high 7.0-18.0 [facility] Comment on above: Performed By: #### C VDTBH #### [facility] [address] [place] [address] [address] Grace Abdul Urea nitrogen/Creatinine [Mass ratio] 18.9 mg/mg Normal [facility] Comment on above: Performed By: #### C VDTBH #### [facility] [address] [place] [address] [address] Grace Abdul URINE MICROSCOPIC ONLYon BACTERIA NONE SEEN Normal NONE SEEN [facility] Comment on above: Performed By: #### Anthony ELLISON UMICRO ####[facility] [address] [place] [address]Dr. Grace Abdul Bacteria identified Cx Nom (U) NOT INDICATED Normal [facility] Comment on above: Performed By: #### Anthony ELLISON UMICRO ####[facility] [address] [place] [address]Dr. Grace Abdul CAST NONE SEEN Normal NONE SEEN [facility] Comment on above: Performed By: #### Anthony ELLISON UMICRO ####[facility] [address] [place] [address]Dr. Grace Abdul Crystals LM Nom (Urine sed) NONE SEEN Normal NONE SEEN [facility] Comment on above: Performed By: #### Anthony ELLISON UMICRO ####[facility] [address] [place] [address]Dr. Grace Abdul Epithelial cells LM Ql (Urine sed) RARE Normal NONE SEEN /RARE [facility] Comment on above: Performed By: #### Anthony ELLISON UMICRO ####[facility] [address] [place] [address]Dr. Grace Abdul MUCOUS NONE SEEN Normal NONE SEEN [facility] Comment on above: Performed By: #### Anthony ELLISON UMICRO ####[facility] Hztftoafxi[address] [place] [address]Dr. Grace Abdul RBC 0-2 Normal 0-2 [facility] Comment on above: Performed By: #### GINA FELDERRO ####[facility] Yrwrqtuntt[address] [place] [address]Dr. Grace Abdul WBC 0-2 Abnormal NONE SEEN [facility] Comment on above: Performed By: #### GINA FELDERRO ####[facility] [address] [place], [place] [address]DrLisette Abdul BNPon 12-11-2021 Natriuretic peptide B (Bld) [Mass/Vol] 665.0 pg/mL Normal <=1,800.0 [facility] Comment on above: Performed By: #### B MP #### [facility] [address] [place], [place] [address] Dr. Grace Abdul CBC AUTO DIFFon 12-11-2021 BASO # 0.0 103/ul Normal 0.0-0.1 [facility] Comment on above: Performed By: #### C BC ####[facility] Otxshctpr[address] [place] [address]DrLisette Abdul Basophils/100 WBC (Bld) 0.5 % Normal 0.2-2.0 [facility] Comment on above: Performed By: #### C BC ####[facility] Tfegcgphfm[address] [place] [address]DrLisette Abdul EO # 0.1 103/ul Normal 0.0-0.7 [facility] Comment on above: Performed By: #### C BC ####[facility] Vdvmtrqogd364[address] [place] [address]Dr. Grace Abdul Eosinophils/100 WBC (Bld) 1.9 % Normal 0.9-7.0 [facility] Comment on above: Performed By: #### C BC ####[facility] Wwgeptwfez86[address] [place] [address]DrLisette Abdul Erythrocyte distribution width (RBC) [Ratio] 13.4 % Normal 11.0-15.0 [facility] Comment on above: Performed By: #### C BC ####[facility] Oxunfwbaal[address] [place] [address]DrLisette Abdul Hematocrit (Bld) [Volume fraction] 36.2 % Normal 36.0-48.0 [facility] Comment on above: Performed By: #### C BC ####[facility] Njdldvdffl[address] [place] [address]DrLisette Abdul Hemoglobin (Bld) [Mass/Vol] 11.9 g/dL Critically low 12.0-16.0 [facility] Comment on above: Performed By: #### C BC ####[facility] Frnzyrwttt[address] [place] [address]Dr. Grace Abdul IG # 0.01 10e3/ul Normal 0.00-0.03 [facility] Comment on above: Performed By: #### C BC ####[facility] Avaichnvnv[address] [place] [address]Dr. Grace Abdul IG % 0.2 % Normal 0.0-0.5 [facility] Comment on above: Performed By: #### C BC ####[facility] Dkhvomppto[address] [place] [address]Dr. Grace Abdul LYMPH # 0.5 103/ul Critically low 1.2-3.8 [facility] Comment on above: Performed By: #### C BC ####[facility] Zuomghzglz36[address] [place] [address]DrLisette Abdul Lymphocytes/100 WBC (Bld) 11.5 % Critically low 20.5-60.0 [facility] Comment on above: Performed By: #### C BC ####[facility] Sgbbpbsffv83[address] [place] [address]DrLisette Abdul MANUAL DIFF REQ NO Normal [facility] Comment on above: Performed By: #### C BC ####[facility] Dmuswjrsht[address]43 [place] [address]Dr. Grace Abdul MCH (RBC) [Entitic mass] 31.6 pg Normal 26.7-34.0 [facility] Comment on above: Performed By: #### C BC ####[facility] Xybkxdgenq[address] [place] [address]Dr. Grace Abdul MCHC (RBC) [Mass/Vol] 32.9 g/dL Normal 29.9-35.2 [facility] Comment on above: Performed By: #### C BC ####[facility] Jlllimngyz[address] [place] [address]Dr. Grace Abdul MCV (RBC) [Entitic vol] 96.0 fL Normal 81.0-99.0 [facility] Comment on above: Performed By: #### C BC ####[facility] Mnilrcgbwc[address] [place] [id number]. Grace Abdul MONO # 0.6 103/ul Normal 0.3-0.8 [facility] Comment on above: Performed By: #### C BC ####[facility] Ozlzrmspff2877 [place] [id number]. Garce Abdul Monocytes/100 WBC (Bld) 14.4 % Critically high 1.7-12.0 [facility] Comment on above: Performed By: #### C BC ####[facility] Yqyhbyhgbi37[address] [place] [id number]. Grace Abdul NEUT # 3.0 103/ul Normal 1.4-6.5 [facility] Comment on above: Performed By: #### C BC ####[facility] Htwctpeaem2764 [place] [address]Dr. Grace Abdul Neutrophils/100 WBC (Bld) 71.5 % Normal 43.0-75.0 [facility] Comment on above: Performed By: #### C BC ####[facility] Uxyiiczhby[address] [place] [id number]. Grace Abdul Platelet mean volume (Bld) [Entitic vol] 9.2 fL Critically low 9.5-13.5 [facility] Comment on above: Performed By: #### C BC ####[facility] Vzwhfslwud[address] [place] [id number]. Grace Abdul PLT 290 103/ul Normal 150-450 [facility] Comment on above: Performed By: #### C BC ####[facility] Cejlgvxkei[address] [place] [id number]. Grace Abdul RBC 3.77 106/ul Critically low 4.20-5.40 [facility] Comment on above: Performed By: #### C BC ####[facility] Nhqdlsvmww30[address] [place] [id number]. Grace Abdul WBC 4.2 103/ul Normal 4.0-11.0 [facility] Comment on above: Performed By: #### C BC ####[facility] Mapqduztjf1106 [place] [address]DrLisette Abdul FREE THYROXINE INDEX T7on FTI 2.63 Normal 1.30-4.50 [facility] Comment on above: Performed By: #### B MP #### [facility] [address] [place] [address] [address] Grace Abdul T3U 35.0 % Normal 30.0-39.0 [facility] Comment on above: Performed By: #### B MP #### [facility] [address] [place] [address] [address] Grace Abdul T4 [Mass/Vol] 7.50 ug/dL Normal 4.80-13.90 [facility] Comment on above: Performed By: #### B MP #### [facility] [address] [place] [address] [address] Grace Abdul GLYCOHEMOGLOBIN A1Con 2021 ADA RECOMMENDATION SEE BELOW Normal [facility] Comment on above: Result Comment: ADA RECOMMENDED LIMIT 4.0 - 6.0 ADA THERAPEUTIC TARGET < 7.0 ACTION SUGGESTED > 7.0 Performed By: #### A 1C ####[facility] [address] [place], [place] [address]DrLisette Abdul Glucose [Mass/Vol] 111 mg/dL Normal The [facility] Comment on above: Performed By: #### A 1C ####[facility] Mrnlphokaj3537 [place] [address]DrLisette Abdul HbA1c (Bld) [Mass fraction] 5.5 % Normal 4.5-6.2 [facility] Comment on above: Performed By: #### A 1C ####[facility] Kqeosjpjkj[address] [place] [address]DrLisette Abdul IRONon 12-11-2021 Iron [Mass/Vol] 50.0 ug/dL Normal 50.0-170.0 [facility] Comment on above: Performed By: #### I KASANDRA WEBSTER, VITB12 ####[facility] Ehkewgudns[address] [place] [address]Dr. Grace Abdul LIPID PROFILEon 12-11-2021 CHOL-HDL RATIO NORM SEE BELOW Normal [facility] Comment on above: Result Comment: 3.3 - 4.4 LOW RISK 4.4 - 7.1 AVERAGE RISK 7.1 - 11.0 MODERATE RISK >11.0 HIGH RISK Performed By: #### B MP #### [facility] [address] [place] [address] [address] Grace Abdul Cholesterol [Mass/Vol] 182 mg/dL Normal <=200 [facility] Comment on above: Performed By: #### B MP #### [facility] [address] [place] [address] [address] Grace Abdul Cholesterol in HDL [Mass/Vol] 60 mg/dL Normal 40-60 [facility] Comment on above: Performed By: #### B MP #### [facility] [address] [place] [address] [address] Grace Abdul Cholesterol in LDL [Mass/Vol] 101.2 mg/dL Normal [facility] Comment on above: Performed By: #### B MP #### [facility] [address] [place] [address] [address] Grace Abdul Cholesterol.total/Ch olesterol in HDL [Mass ratio] 3.0 {ratio} Normal [facility] Comment on above: Performed By: #### B MP #### [facility] [address] [place] [address] [address] Grace Abdul HDL NORMAL > or = 60 mg/dl - LO W CARDIOVASCULAR RISK <40 mg/dl - HIGH CARDIOVASCULAR RISK Normal [facility] Comment on above: Performed By: #### B MP #### [facility] [address] [place] [address] [address] Grace Abdul LDL CALC NORMAL SEE BELOW Normal [facility] Comment on above: Result Comment: <100 mg/dl OPTIMAL 100 - 129 mg/dl NEAR OR ABOVE OPTIMAL 130 - 159 mg/dl BORDERLINE HIGH 160 - 189 mg/dl HIGH >190 mg/dl VERY HIGH Performed By: #### B MP #### [facility] [address] [place] [address] [address] Grace Abdul Triglyceride [Mass/Vol] 104 mg/dL Normal <=150 [facility] Comment on above: Performed By: #### B MP #### [facility] [address] [place] [address] Dr. Grace Abdul VLDL CALC 20.8 mg/dL Normal [facility] Comment on above: Performed By: #### B MP #### [facility] [address] [place] [address] Dr. Grace Abdul PROF 14(COMP METB)on 022 Albumin [Mass/Vol] 3.5 g/dL Normal 3.4-5.0 [facility] Comment on above: Performed By: #### B MP #### [facility] [address] [place] [address] Dr. Grace Abdul Albumin/Globulin [Mass ratio] 1.0 {ratio} Normal [facility] Comment on above: Performed By: #### B MP #### [facility] [address] [place] [address] Dr. Grace Abdul ALP [Catalytic activity/Vol] 55 U/L Normal 46-116 [facility] Comment on above: Performed By: #### B MP #### [facility] [address] [place] [address] Dr. Grace Abdul ALT [Catalytic activity/Vol] 21 U/L Normal 14-59 [facility] Comment on above: Performed By: #### B MP #### [facility] [address] [place] [address] Dr. Grace Abdul Anion gap [Moles/Vol] 9.3 mmol/L Normal [facility] Comment on above: Performed By: #### B MP #### [facility] [address] [place] [address] Dr. Grace Abdul AST [Catalytic activity/Vol] 21 U/L Normal 15-37 [facility] Comment on above: Performed By: #### B MP #### [facility] [address] [place] [address] Dr. Grace Abdul Bilirubin [Mass/Vol] 0.3 mg/dL Normal 0.2-1.0 [facility] Comment on above: Performed By: #### B MP #### [facility] [address] [place] [address] [address] Grace Abdul Calcium [Mass/Vol] 9.5 mg/dL Normal 8.5-10.1 [facility] Comment on above: Performed By: #### B MP #### [facility] [address] [place] [address] [address] Grace Abdul Chloride [Moles/Vol] 102 mmol/L Normal 98-107 [facility] Comment on above: Performed By: #### B MP #### [facility] [address] [place] [address] [address] Grace Abdul CO2 [Moles/Vol] 28.5 mmol/L Normal 21.0-32.0 [facility] Comment on above: Performed By: #### B MP #### [facility] [address] [place] [address] [address] Grace Abdul Creatinine [Mass/Vol] 1.04 mg/dL Critically high 0.55-1.02 [facility] Comment on above: Performed By: #### B MP #### [facility] [address] [place] [address] [address] Grace Abdul EGFR-AF SOUTH [place]OREAN >60 Normal >=60 [facility] Comment on above: Performed By: #### B MP #### [facility] [address] [place] [address] [address] Grace Abdul EGFR-NON AF [place]OREAN 51 mL/min/1.73m2 Critically low >=60 [facility] Comment on above: Performed By: #### B MP #### [facility] [address] [place] [address] [address] Grace Abdul Globulin (S) [Mass/Vol] 3.5 g/dL Normal [facility] Comment on above: Performed By: #### B MP #### [facility] [address] [place] [address] [address] Grace Abdul Glucose [Mass/Vol] 102 mg/dL Normal 74-106 [facility] Comment on above: Performed By: #### B MP #### [facility] [address] [place] [address] [address] Grace Abdul Potassium [Moles/Vol] 3.8 mmol/L Normal 3.5-5.1 [facility] Comment on above: Performed By: #### B MP #### [facility] [address] [place] [address] [address] Grace Abdul Protein [Mass/Vol] 7.0 g/dL Normal 6.4-8.2 [facility] Comment on above: Performed By: #### B MP #### [facility] [address] [place] [address] [address] Grace Abdul Sodium [Moles/Vol] 136 mmol/L Normal 136-145 [facility] Comment on above: Performed By: #### B MP #### [facility] [address] [place] [address] [address] Grace Abdul Urea nitrogen [Mass/Vol] 20.0 mg/dL Critically high 7.0-18.0 [facility] Comment on above: Performed By: #### B MP #### [facility] [address] [place] [address] [address] Grace Abdul Urea nitrogen/Creatinine [Mass ratio] 19.2 mg/mg Normal [facility] Comment on above: Performed By: #### B MP #### [facility] [address] [place] [address] [address] Grace Abdul TSHon 12-11-2021 TSH 0.247 uIU/mL Critically low 0.358-3.740 [facility] Comment on above: Performed By: #### B MP #### [facility] [address] [place] [address] [address] Grace Abdul VITAMIN B12on 12-11-2021 Cobalamin (Vitamin B12) [Mass/Vol] 762.0 pg/mL Normal 193.0-986.0 [facility] Comment on above: Performed By: #### I DARIN, VITAD, VITB12 ####[facility] [address] [place] [address]Dr. Grace Abdul VITAMIN D 25 OHon 12-11-2021 VIT D 25-OH 54.9 ng/mL Normal [facility] Comment on above: Performed By: #### I DARIN VITAD, VITB12 ####[facility] [address] [place], [place] [address]Xj. Grace Abdul VIT D RANGES SEE BELOW Normal [facility] Comment on above: Result Comment: <20 ng/mL Vit D deficient 20 - <30 ng/mL Vit D insufficient 30 - 100 ng/mL Vit D sufficient >100 ng/mL Potential Toxicity Performed By: #### I DARIN VITAD, VITB12 ####[facility] [address] [place], [place] [address]Nn. Grace Franko MG MAMM SCREEN 3D CLEMENCIA CADon 11-25-2021 MG MAMM SCREEN 3D CLEMENCIA CAD Patient: ALEXA DELGADO Exam Date: 11/25/2021 : 1940 Gender:F Ordering : DR GALINA ROGERS . Admission #: [id number] Family : DR ELOISA MORALES Order #: [id number] CLICK HERE TO VIEW EXAM RADIOLOGY REPORT [...] Treatments None Family Cancers None LOCATION: [facility] BREAST COMPOSITION: Scattered areas fibroglandular density. FINDINGS: [...] MD on 11/25/2021 at 14:14 Normal [facility] CULTURE URINEon 11-24-2021 CULTURE URINE Culture Observations : LIGHT GROWTH OF MIXED GENITAL ALANIS. NO POTENTIAL PATHOGENS SEEN. Normal [facility] Comment on above: Performed By: #### U RCX ####[facility] [address] [place] [address]Dr. Grace Abdul GI PANEL (PCR)on 11-24-2021 Adenovirus F 40/41 Not detected Normal NOT DETECTED [facility] Comment on above: Performed By: #### C BC #### [facility] [address] [place] [address] Dr. Grace Abdul Astrovirus Not detected Normal NOT DETECTED The [facility] Comment on above: Performed By: #### C BC #### [facility] [address] [place] [address] Dr. Grace Dorman. Diff toxin A/B Not detected Normal NOT DETECTED [facility] Comment on above: Performed By: #### C BC #### [facility] [address] [place] [address] Dr. Grace Abdul Campylobacter Not detected Normal NOT DETECTED [facility] Comment on above: Performed By: #### C BC #### [facility] [address] [place] [address] Dr. Grace Abdul Cryptosporidium Not detected Normal NOT DETECTED [facility] Comment on above: Performed By: #### C BC #### [facility] [address] [place] [address] Dr. Grace Abdul Cyclos. Cayetanensis Not detected Normal NOT DETECTED [facility] Comment on above: Performed By: #### C BC #### [facility] [address] [place] [address] Dr. Grace Abdul E. Coli O157 Not Applicable Normal Not Applicable [facility] Comment on above: Performed By: #### C BC #### [facility] [address] [place] [address] Dr. Grace Abdul E. histolytica Not detected Normal NOT DETECTED [facility] Comment on above: Performed By: #### C BC #### [facility] [address] [place] [address] Dr. Grace Abdul EAEC Not detected Normal NOT DETECTED [facility] Comment on above: Performed By: #### C BC #### [facility] [address] [place] [address] Dr. Grace Abdul EIEC Not detected Normal NOT DETECTED [facility] Comment on above: Performed By: #### C BC #### [facility] [address] [place] [address] [address] Grace Abdul EPEC Not detected Normal NOT DETECTED [facility] Comment on above: Performed By: #### C BC #### [facility] [address] [place] [address] Dr. Grace Abdul ETEC Not detected Normal NOT DETECTED [facility] Comment on above: Performed By: #### C BC #### [facility] [address] [place] [address] Dr. Grace Smithlivanda Not detected Normal NOT DETECTED [facility] Comment on above: Performed By: #### C BC #### [facility] [address] [place] [address] Dr. Grace MCKEON CONTROLS PASSED Normal [facility] Comment on above: Performed By: #### C BC #### [facility] [address] [place] [address] Dr. Grace DIETRICH HEADER GI PANEL BACTERIA Normal [facility] Comment on above: Performed By: #### C BC #### [facility] [address] [place] [address] Dr. Grace SANDERS ECOLI GI PANEL DIARRHEAGEN IC E.COLI / SHIGELLA Normal [facility] Comment on above: Performed By: #### C BC #### [facility] [address] [place] [address] Dr. Grace SANDERS INFO SEE BELOW [facility] Comment on above: Result Comment: EAEC - Enteroaggregative E. Coli EPEC- Enteropathogenic E. Coli ETEC- Enterotoxigenic E. Coli lt/st STEC- Shigella-like toxin-producing E. Coli stx1/stx2 EIEC- Shigella/Enteroinvasive E. Coli Performed By: #### C BC #### [facility] [address] [place], [place] [address] Dr. Grace SANDERS PARASITES GI PANEL PARASITES Normal [facility] Comment on above: Performed By: #### C BC #### [facility] [address] [place] [address] Dr. Grace SANDERS VIRUS GI PANEL VIRUSES Normal [facility] Comment on above: Performed By: #### C BC #### [facility] [address] [place] [address] Dr. Grace Abdul Norovirus GI/GII Not detected Normal NOT DETECTED [facility] Comment on above: Performed By: #### C BC #### [facility] [address] [place] [address] Dr. Grace Abdul P. Shigelloides Not detected Normal NOT DETECTED [facility] Comment on above: Performed By: #### C BC #### [facility] [address] [place] [address] Dr. Grace Abdul Rotavirus A Not detected Normal NOT DETECTED [facility] Comment on above: Performed By: #### C BC #### [facility] [address] [place] [address] Dr. Grace Abdul Salmonella Not detected Normal NOT DETECTED [facility] Comment on above: Performed By: #### C BC #### [facility] [address] [place] [address] Dr. Grace Abdul Sapovirus Not detected Normal NOT DETECTED [facility] Comment on above: Performed By: #### C BC #### [facility] [address] [place] [address] Dr. Grace Abdul STEC Not detected Normal NOT DETECTED [facility] Comment on above: Performed By: #### C BC #### [facility] [address] [place] [address] Dr. Grace Abdul Vibrio Not detected Normal NOT DETECTED [facility] Comment on above: Performed By: #### C BC #### [facility] [address] [place] [address] Dr. Grace Abdul Vibrio Cholera Not detected Normal NOT DETECTED [facility] Comment on above: Performed By: #### C BC #### [facility] [address] [place] [address] [address] Grace Blue Enterocolitica Not detected Normal NOT DETECTED [facility] Comment on above: Performed By: #### C BC #### [facility] [address] [place] [address] [address] Grace Abdul UA RANDOM W/MICROSCOPICon BACTERIA NONE SEEN Normal NONE SEEN [facility] Comment on above: Performed By: #### U AMIC ####[facility] [address]ts[address] [place] [address]Dr. Grace Abdul Bilirubin Ql (U) Negative Normal NEGATIVE [facility] Comment on above: Performed By: #### U AMIC ####[facility] [address] [place] [address]Dr. Grace Abdul CAST NONE SEEN Normal NONE SEEN [facility] Comment on above: Performed By: #### U AMIC ####[facility] [address]yl[address] [place] [address]Dr. Grace Abdul Clarity (U) CLEAR Normal CLEAR [facility] Comment on above: Performed By: #### U AMIC ####[facility] [address]ts[address] [place] [address]Dr. Grace Abdul Color (U) LT. YELLOW Normal YELLOW [facility] Comment on above: Performed By: #### U AMIC ####[facility] [address] [place] [address]Dr. Grace Abdul Crystals LM Nom (Urine sed) NONE SEEN Normal NONE SEEN [facility] Comment on above: Performed By: #### U AMIC ####[facility] Lcsnjxbfvm[address] [place] [address]Dr. Grace Abdul Epithelial cells LM Ql (Urine sed) FEW Abnormal NONE SEEN /RARE [facility] Comment on above: Performed By: #### U AMIC ####[facility] [address] [place] [address]Dr. Grace Abdul Glucose Ql (U) Negative Normal NEGATIVE [facility] Comment on above: Performed By: #### U AMIC ####[facility] Fretgash[address] [place] [address]Dr. Grace Abdul Hemoglobin Ql (U) TRACE-INTACT Abnormal NEGATIVE [facility] Comment on above: Performed By: #### U AMIC ####[facility] Jlxqchmehc[address] [place] [address]Dr. Grace Abdul Ketones Ql (U) Negative Normal NEGATIVE [facility] Comment on above: Performed By: #### U AMIC ####[facility] [address] [place], [place] [address]Dr. Grace Abdul LEUKOCYTES Negative Normal NEGATIVE [facility] Comment on above: Performed By: #### U AMIC ####[facility] [address] [place], [place] [address]Dr. Grace Abdul MUCOUS NONE SEEN Normal NONE SEEN [facility] Comment on above: Performed By: #### U AMIC ####[facility] [address] [place], [place] [address]Dr. Grace Franko Nitrite Ql (U) Negative Normal NEGATIVE [facility] Comment on above: Performed By: #### U AMIC ####[facility] [address] [place], [place] [address]Dr. Grace Abdul pH (U) 7.5 [pH] Normal 5-9 [facility] Comment on above: Performed By: #### U AMIC ####[facility] [address] [place], [place] [address]Dr. Grace Abdul RBC 0-2 Normal 0-2 [facility] Comment on above: Performed By: #### U AMIC ####[facility] [address] [place], [place] [address]Dr. Benitalee ann Abdul SPEC GRAVITY 1.010 Normal 1.005-<=1.025 [facility] Comment on above: Performed By: #### U AMIC ####[facility] [address] [place], [place] [address]Dr. Grace Abdul UA PROTEIN Negative Normal NEGATIVE/ TRACE [facility] Comment on above: Performed By: #### U AMIC ####[facility] [address] [place] [id number] Grace Abdul Urobilinogen Qn (U) 0.2 {Ashley'U}/dL Normal 0.2 - 1. 0 [facility] Comment on above: Performed By: #### U AMIC ####[facility] [address] [place] [id number] Abdul WBC NONE SEEN Normal NONE SEEN [facility] Comment on above: Performed By: #### U AMIC ####[facility] [address] [place] [id number]. Grace Abdul CBC AUTO DIFFon 11-23-2021 BASO # 0.0 103/ul Normal 0.0-0.1 [facility] Comment on above: Performed By: #### C BC #### [facility] [address] [place] [address] [address] Grace Abdul Basophils/100 WBC (Bld) 0.4 % Normal 0.2-2.0 [facility] Comment on above: Performed By: #### C BC #### [facility] [address] [place] [address] [address] Grace Abdul EO # 0.1 103/ul Normal 0.0-0.7 [facility] Comment on above: Performed By: #### C BC #### [facility] [address] [place] [address] [address] Grace Abdul Eosinophils/100 WBC (Bld) 1.5 % Normal 0.9-7.0 [facility] Comment on above: Performed By: #### C BC #### [facility] [address] [place] [address] [address] Grace Abdul Erythrocyte distribution width (RBC) [Ratio] 13.2 % Normal 11.0-15.0 [facility] Comment on above: Performed By: #### C BC #### [facility] [address] [place] [address] [address] Grace Abdul Hematocrit (Bld) [Volume fraction] 31.9 % Critically low 36.0-48.0 [facility] Comment on above: Performed By: #### C BC #### [facility] [address] [place] [address] [address] Grace Abdul Hemoglobin (Bld) [Mass/Vol] 10.5 g/dL Critically low 12.0-16.0 [facility] Comment on above: Performed By: #### C BC #### [facility] [address] [place] [address] [address] Grace Abdul IG # 0.01 10e3/ul Normal 0.00-0.03 [facility] Comment on above: Performed By: #### C BC #### [facility] [address] [place] [address] Dr. Grace Abdul IG % 0.2 % Normal 0.0-0.5 [facility] Comment on above: Performed By: #### C BC #### [facility] [address] [place] [address] Dr. Grace Abdul LYMPH # 0.7 103/ul Critically low 1.2-3.8 The [facility] Comment on above: Performed By: #### C BC #### [facility] [address] [place] [address] Dr. Grace Abdul Lymphocytes/100 WBC (Bld) 14.8 % Critically low 20.5-60.0 [facility] Comment on above: Performed By: #### C BC #### [facility] [address] [place] [address] Dr. Grace Abdul MANUAL DIFF REQ NO Normal [facility] Comment on above: Performed By: #### C BC #### [facility] [address] [place] [address] Dr. Grace Abdul MCH (RBC) [Entitic mass] 31.4 pg Normal 26.7-34.0 [facility] Comment on above: Performed By: #### C BC #### [facility] [address] [place] [address] Dr. Grace Abdul MCHC (RBC) [Mass/Vol] 32.9 g/dL Normal 29.9-35.2 [facility] Comment on above: Performed By: #### C BC #### [facility] [address] [place], [place] [id number] Dr. Grace Abdul MCV (RBC) [Entitic vol] 95.5 fL Normal 81.0-99.0 [facility] Comment on above: Performed By: #### C BC #### [facility] [address] [place] [address] Dr. Grace Abdul MONO # 0.6 103/ul Normal 0.3-0.8 [facility] Comment on above: Performed By: #### C BC #### [facility] [address] [place] [address] Dr. Grace Abdul Monocytes/100 WBC (Bld) 13.4 % Critically high 1.7-12.0 [facility] Comment on above: Performed By: #### C BC #### [facility] [address] [place] [address] Dr. Grace Abdul NEUT # 3.3 103/ul Normal 1.4-6.5 [facility] Comment on above: Performed By: #### C BC #### [facility] [address] [place] [address] Dr. Grace Abdul Neutrophils/100 WBC (Bld) 69.7 % Normal 43.0-75.0 [facility] Comment on above: Performed By: #### C BC #### [facility] [address] [place] [address] Dr. Grace Abdul Platelet mean volume (Bld) [Entitic vol] 9.1 fL Critically low 9.5-13.5 [facility] Comment on above: Performed By: #### C BC #### [facility] [address] [place] [address] Dr. Grace Abdul PLT 335 103/ul Normal 150-450 [facility] Comment on above: Performed By: #### C BC #### [facility] [address] [place] [address] Dr. Grace Abdul RBC 3.34 106/ul Critically low 4.20-5.40 [facility] Comment on above: Performed By: #### C BC #### [facility] [address] [place] [address] Dr. Grace Abdul WBC 4.8 103/ul Normal 4.0-11.0 [facility] Comment on above: Performed By: #### C BC #### [facility] [address] [place], [place] [address] Dr. Grace Abdul FREE THYROXINE INDEX T7on FTI 1.15 Critically low 1.30-4.50 The [facility] Comment on above: Performed By: #### T 7, CMP, TSH ####[facility] [address] [place] [id number] Abdul T3U 31.0 % Normal 30.0-39.0 [facility] Comment on above: Performed By: #### T 7, CMP, TSH ####[facility] [address] [place] [id number] Abdul T4 [Mass/Vol] 3.70 ug/dL Critically low 4.80-13.90 The [facility] Comment on above: Performed By: #### T 7, CMP, TSH ####[facility] [address] [place] [id number] Abdul IRONon 11-23-2021 Iron [Mass/Vol] 52.0 ug/dL Normal 50.0-170.0 [facility] Comment on above: Performed By: #### C VDTB #### [facility] [address] [place], [place] [address] Dr. Grace Abdul PROF 14(COMP METB)on 022 Albumin [Mass/Vol] 3.5 g/dL Normal 3.4-5.0 The [facility] Comment on above: Performed By: #### T 7, CMP, TSH ####[facility] [address] [place] [id number] Abdul Albumin/Globulin [Mass ratio] 1.1 {ratio} Normal [facility] Comment on above: Performed By: #### T 7, CMP, TSH ####[facility] [address] [place] [id number] Abdul ALP [Catalytic activity/Vol] 69 U/L Normal 46-116 [facility] Comment on above: Performed By: #### T 7, CMP, TSH ####[facility] [address] [place] [address]Dr. Grace Abdul ALT [Catalytic activity/Vol] 51 U/L Normal 14-59 [facility] Comment on above: Performed By: #### T 7, CMP, TSH ####[facility] [address] [place] [address]Dr. Grace Abdul Anion gap [Moles/Vol] 11.5 mmol/L Normal [facility] Comment on above: Performed By: #### T 7, CMP, TSH ####[facility] [address] [place], [place] [address]Dr. Grace Abdul AST [Catalytic activity/Vol] 24 U/L Normal 15-37 [facility] Comment on above: Performed By: #### T 7, CMP, TSH ####[facility] [address] [place], [place] [address]Dr. Grace Abdul Bilirubin [Mass/Vol] 0.2 mg/dL Normal 0.2-1.0 [facility] Comment on above: Performed By: #### T 7, CMP, TSH ####[facility] [address] [place], [place] [address]Dr. Grace Abdul Calcium [Mass/Vol] 9.3 mg/dL Normal 8.5-10.1 [facility] Comment on above: Performed By: #### T 7, CMP, TSH ####[facility] [address] [place], [place] [address]Dr. Grace Abdul Chloride [Moles/Vol] 98 mmol/L Normal 98-107 [facility] Comment on above: Performed By: #### T 7, CMP, TSH ####[facility] [address] [place], [place] [address]Dr. Grace Abdul CO2 [Moles/Vol] 28.7 mmol/L Normal 21.0-32.0 The [facility] Comment on above: Performed By: #### T 7, CMP, TSH ####[facility] [address] [place], [place] [address]Dr. Grace Abdul Creatinine [Mass/Vol] 1.11 mg/dL Critically high 0.55-1.02 [facility] Comment on above: Performed By: #### T 7, LEONOR, TSH ####[facility] [address] [place] [address]Dr. Grace Abdul EGFR-AF [place] 57 mL/min/1.73m2 Critically low >=60 [facility] Comment on above: Performed By: #### T 7, CMP, TSH ####[facility] [address] [place] [address]Dr. Grace Abdul EGFR-NON AF [place] 47 mL/min/1.73m2 Critically low >=60 [facility] Comment on above: Performed By: #### Ainsley 7, LEONOR, TSH ####[facility] [address] [place], [place] [address]Dr. Benitalee ann Abdul Globulin (S) [Mass/Vol] 3.3 g/dL Normal [facility] Comment on above: Performed By: #### T 7, CMP, TSH ####[facility] [address] [place], [place] [address]Dr. Grace Franko Glucose [Mass/Vol] 88 mg/dL Normal 74-106 [facility] Comment on above: Performed By: #### T 7, CMP, TSH ####[facility] [address] [place] [address]Dr. Benitalee ann Abdul Potassium [Moles/Vol] 4.2 mmol/L Normal 3.5-5.1 [facility] Comment on above: Performed By: #### T 7, CMP, TSH ####[facility] [address] [place] [address]Dr. Grace Abdul Protein [Mass/Vol] 6.8 g/dL Normal 6.4-8.2 The [facility] Comment on above: Performed By: #### T 7, CMP, TSH ####[facility] [address] [place] [address]Dr. Benitalee ann Abdul Sodium [Moles/Vol] 134 mmol/L Critically low 136-145 [facility] Comment on above: Performed By: #### T 7, CMP, TSH ####[facility] [address] [place] [address]DrLisette Abdul Urea nitrogen [Mass/Vol] 33.0 mg/dL Critically high 7.0-18.0 [facility] Comment on above: Performed By: #### T 7, CMP, TSH ####[facility] [address] [place] [address]DrLisette Abdul Urea nitrogen/Creatinine [Mass ratio] 29.7 mg/mg Normal [facility] Comment on above: Performed By: #### T 7, CMP, TSH ####[facility] [address] [place] [address]DrLisette Abdul TSHon 11-23-2021 TSH 0.469 uIU/mL Normal 0.358-3.740 [facility] Comment on above: Performed By: #### T 7, CMP, TSH ####[facility] [address] [place] [address]DrLisette Abdul CBC AUTO DIFFon 11-17-2021 BASO # 0.0 103/ul Normal 0.0-0.1 [facility] Comment on above: Performed By: #### C VDTBH #### [facility] [address] [place] [address] Dr. Grace Abdul Basophils/100 WBC (Bld) 0.2 % Normal 0.2-2.0 [facility] Comment on above: Performed By: #### C VDTBH #### [facility] [address] [place] [address] Dr. Grace Abdul EO # 0.1 103/ul Normal 0.0-0.7 [facility] Comment on above: Performed By: #### C VDTBH #### [facility] [address] [place] [address] Dr. Grace Abdul Eosinophils/100 WBC (Bld) 0.9 % Normal 0.9-7.0 [facility] Comment on above: Performed By: #### C VDTBH #### [facility] [address] [place] [address] Dr. Grace Abdul Erythrocyte distribution width (RBC) [Ratio] 12.8 % Normal 11.0-15.0 [facility] Comment on above: Performed By: #### C VDTBH #### [facility] [address] [place] [address] Dr. Grace Abdul Hematocrit (Bld) [Volume fraction] 35.2 % Critically low 36.0-48.0 [facility] Comment on above: Performed By: #### C VDTBH #### [facility] [address] [place] [address] Dr. Grace Abdul Hemoglobin (Bld) [Mass/Vol] 12.1 g/dL Normal 12.0-16.0 [facility] Comment on above: Performed By: #### C VDTBH #### [facility] [address] [place] [address] Dr. Grace Abdul IG # 0.05 10e3/ul Critically high 0.00-0.03 [facility] Comment on above: Performed By: #### C VDTBH #### [facility] [address] [place] [address] Dr. Grace Abdul IG % 0.6 % Critically high 0.0-0.5 [facility] Comment on above: Performed By: #### C VDTBH #### [facility] [address] [place] [address] Dr. Grace Abdul LYMPH # 0.6 103/ul Critically low 1.2-3.8 The [facility] Comment on above: Performed By: #### C VDTBH #### [facility] [address] [place] [address] Dr. Grace Abdul Lymphocytes/100 WBC (Bld) 7.4 % Critically low 20.5-60.0 [facility] Comment on above: Performed By: #### C VDTBH #### [facility] [address] [place] [address] Dr. Grace Abdul MANUAL DIFF REQ NO Normal [facility] Comment on above: Performed By: #### C VDTBH #### [facility] [address] [place] [address] [address] Grace Abdul MCH (RBC) [Entitic mass] 31.5 pg Normal 26.7-34.0 [facility] Comment on above: Performed By: #### C VDTBH #### [facility] [address] [place] [address] Dr. Grace Abdul MCHC (RBC) [Mass/Vol] 34.4 g/dL Normal 29.9-35.2 [facility] Comment on above: Performed By: #### C VDTBH #### [facility] [address] [place] [address] Dr. Grace Abdul MCV (RBC) [Entitic vol] 91.7 fL Normal 81.0-99.0 [facility] Comment on above: Performed By: #### C VDTBH #### [facility] [address] [place] [address] Dr. Grace Abdul MONO # 1.0 103/ul Critically high 0.3-0.8 [facility] Comment on above: Performed By: #### C VDTBH #### [facility] [address] [place] [address] Dr. Grace Abdul Monocytes/100 WBC (Bld) 12.1 % Critically high 1.7-12.0 [facility] Comment on above: Performed By: #### C VDTBH #### [facility] [address] [place] [address] Dr. Grace Abdul NEUT # 6.3 103/ul Normal 1.4-6.5 [facility] Comment on above: Performed By: #### C VDTBH #### [facility] [address] [place] [address] Dr. Grace Abdul Neutrophils/100 WBC (Bld) 78.8 % Critically high 43.0-75.0 [facility] Comment on above: Performed By: #### C VDTBH #### [facility] [address] [place] [address] Dr. Grace Abdul Platelet mean volume (Bld) [Entitic vol] 9.1 fL Critically low 9.5-13.5 [facility] Comment on above: Performed By: #### C VDTBH #### [facility] [address] [place] [address] Dr. Grace Abdul PLT 281 103/ul Normal 150-450 [facility] Comment on above: Performed By: #### C VDTBH #### [facility] [address] [place] [address] Dr. Grace Abdul RBC 3.84 106/ul Critically low 4.20-5.40 [facility] Comment on above: Performed By: #### C VDTBH #### [facility] [address] [place] [address] Dr. Grace Abdul WBC 8.0 103/ul Normal 4.0-11.0 [facility] Comment on above: Performed By: #### C VDTBH #### [facility] [address] [place] [address] Dr. Grace Abdul MAGNESIUMon 11-17-2021 Magnesium [Mass/Vol] 1.9 mg/dL Normal 1.8-2.4 [facility] Comment on above: Performed By: #### C VDTBH #### [facility] [address] [place] [address] Dr. Grace Abdul PROF CHEM 8 (BAS METB)on Anion gap [Moles/Vol] 13.9 mmol/L Normal [facility] Comment on above: Performed By: #### C VDTBH #### [facility] [address] [place] [address] Dr. Grace Abdul Calcium [Mass/Vol] 8.7 mg/dL Normal 8.5-10.1 The [facility] Comment on above: Performed By: #### C VDTBH #### [facility] [address] [place] [address] Dr. Grace Abdul Chloride [Moles/Vol] 101 mmol/L Normal 98-107 [facility] Comment on above: Performed By: #### C VDTBH #### [facility] [address] [place] [address] Dr. Grace Abdul CO2 [Moles/Vol] 24.3 mmol/L Normal 21.0-32.0 [facility] Comment on above: Performed By: #### C VDTBH #### [facility] [address] [place] [address] Dr. Grace Abdul Creatinine [Mass/Vol] 0.89 mg/dL Normal 0.55-1.02 [facility] Comment on above: Performed By: #### C VDTBH #### [facility] [address] [place] [address] [address] Grace Abdul EGFR-AF [place]ORE[place] >60 Normal >=60 [facility] Comment on above: Performed By: #### C VDTBH #### [facility] [address] [place] [address] [address] Grace Abdul EGFR-NON AF [place] >60 Normal >=60 [facility] Comment on above: Performed By: #### C VDTBH #### [facility] [address] [place] [address] Dr. Grace Abdul Glucose [Mass/Vol] 97 mg/dL Normal 74-106 [facility] Comment on above: Performed By: #### C VDTBH #### [facility] [address] [place] [address] [address] Grace Abdul Potassium [Moles/Vol] 3.2 mmol/L Critically low 3.5-5.1 [facility] Comment on above: Performed By: #### C VDTBH #### [facility] [address] [place] [address] Dr. Grace Abdul Sodium [Moles/Vol] 136 mmol/L Normal 136-145 [facility] Comment on above: Performed By: #### C VDTBH #### [facility] [address] [place] [address] [address] Grace Abdul Urea nitrogen [Mass/Vol] 14.0 mg/dL Normal 7.0-18.0 [facility] Comment on above: Performed By: #### C VDTBH #### [facility] [address] [place] [address] [address] Grace Abdul Urea nitrogen/Creatinine [Mass ratio] 15.7 mg/mg Normal [facility] Comment on above: Performed By: #### C VDTBH #### [facility] [address] [place] [address] Dr. Grace Abdul CBC AUTO DIFFon 11-16-2021 BASO # 0.0 103/ul Normal 0.0-0.1 [facility] Comment on above: Performed By: #### B MP #### [facility] [address] [place] [address] Dr. Grace Abdul Basophils/100 WBC (Bld) 0.2 % Normal 0.2-2.0 [facility] Comment on above: Performed By: #### B MP #### [facility] [address] [place] [address] Dr. Grace Abdul EO # 0.0 103/ul Normal 0.0-0.7 [facility] Comment on above: Performed By: #### B MP #### [facility] [address] [place] [address] Dr. Grace Abdul Eosinophils/100 WBC (Bld) 0.5 % Critically low 0.9-7.0 [facility] Comment on above: Performed By: #### B MP #### [facility] [address] [place] [address] Dr. Grace Abdul Erythrocyte distribution width (RBC) [Ratio] 12.4 % Normal 11.0-15.0 [facility] Comment on above: Performed By: #### B MP #### [facility] [address] [place] [address] Dr. Grace Abdul Hematocrit (Bld) [Volume fraction] 33.6 % Critically low 36.0-48.0 [facility] Comment on above: Performed By: #### B MP #### [facility] [address] [place] [address] Dr. Grace Abdul Hemoglobin (Bld) [Mass/Vol] 11.8 g/dL Critically low 12.0-16.0 [facility] Comment on above: Performed By: #### B MP #### [facility] [address] [place] [address] Dr. Grace Abdul IG # 0.04 10e3/ul Critically high 0.00-0.03 [facility] Comment on above: Performed By: #### B MP #### [facility] [address] [place] [address] Dr. Grace Abdul IG % 0.7 % Critically high 0.0-0.5 [facility] Comment on above: Performed By: #### B MP #### [facility] [address] [place] [address] Dr. Grace Abdul LYMPH # 0.7 103/ul Critically low 1.2-3.8 [facility] Comment on above: Performed By: #### B MP #### [facility] [address] [place] [address] Dr. Grace Abdul Lymphocytes/100 WBC (Bld) 11.1 % Critically low 20.5-60.0 [facility] Comment on above: Performed By: #### B MP #### [facility] [address] [place] [address] Dr. Grace Abdul MANUAL DIFF REQ NO Normal [facility] Comment on above: Performed By: #### B MP #### [facility] [address] [place] [address] Dr. Grace Abdul MCH (RBC) [Entitic mass] 31.5 pg Normal 26.7-34.0 [facility] Comment on above: Performed By: #### B MP #### [facility] [address] [place] [address] Dr. Grace Abdul MCHC (RBC) [Mass/Vol] 35.1 g/dL Normal 29.9-35.2 [facility] Comment on above: Performed By: #### B MP #### [facility] [address] [place] [address] Dr. Grace Abdul MCV (RBC) [Entitic vol] 89.6 fL Normal 81.0-99.0 [facility] Comment on above: Performed By: #### B MP #### [facility] [address] [place] [address] Dr. Grace Abdul MONO # 0.9 103/ul Critically high 0.3-0.8 [facility] Comment on above: Performed By: #### B MP #### [facility] [address] [place] [address] [address] Grace Abdul Monocytes/100 WBC (Bld) 14.0 % Critically high 1.7-12.0 [facility] Comment on above: Performed By: #### B MP #### [facility] [address] [place] [address] [address] Grace Abdul NEUT # 4.5 103/ul Normal 1.4-6.5 [facility] Comment on above: Performed By: #### B MP #### [facility] [address] [place] [address] Dr. Grace Abdul Neutrophils/100 WBC (Bld) 73.5 % Normal 43.0-75.0 [facility] Comment on above: Performed By: #### B MP #### [facility] [address] [place] [address] Dr. Grace Abdul Platelet mean volume (Bld) [Entitic vol] 9.3 fL Critically low 9.5-13.5 [facility] Comment on above: Performed By: #### B MP #### [facility] [address] [place] [address] Dr. Grace Abdul PLT 292 103/ul Normal 150-450 [facility] Comment on above: Performed By: #### B MP #### [facility] [address] [place] [address] Dr. Grace Abdul RBC 3.75 106/ul Critically low 4.20-5.40 [facility] Comment on above: Performed By: #### B MP #### [facility] [address] [place] [address] Dr. Grace Abdul WBC 6.1 103/ul Normal 4.0-11.0 [facility] Comment on above: Performed By: #### B MP #### [facility] [address] [place] [address] Dr. Grace Abdul CULTURE URINEon 11-16-2021 CULTURE URINE Culture Observations : LIGHT GROWTH OF MIXED GENITAL ALANIS. NO POTENTIAL PATHOGENS SEEN. Normal [facility] Comment on above: Performed By: #### U RCX ####[facility] [id number] [address]Dr. Grace HERNANDEZ URINE PROFILEon 2 Bilirubin Ql (U) Negative Normal NEGATIVE [facility] Comment on above: Performed By: #### C VDTBH #### [facility] [address] [address] [address] Grace Abdul Clarity (U) CLEAR Normal CLEAR [facility] Comment on above: Performed By: #### C VDTBH #### [facility] [address] [address] [address] Grace Abdul Color (U) LT. YELLOW Normal YELLOW [facility] Comment on above: Performed By: #### C VDTBH #### [facility] [address] [place] [address] Dr. Grace HIGGINS A micrscopic examination will be performed if indicated. Normal [facility] Comment on above: Performed By: #### C VDTBH #### [facility] [address] [place] [address] Dr. Grace Abdul Glucose Ql (U) Negative Normal NEGATIVE The [facility] Comment on above: Performed By: #### C VDTBH #### [facility] [address] [place] [address] Dr. Grace Abdul Hemoglobin Ql (U) SMALL Abnormal NEGATIVE The [facility] Comment on above: Performed By: #### C VDTBH #### [facility] [address] [address] [address] Grace Abdul Ketones Ql (U) 40 mg/dl Abnormal NEGATIVE The [facility] Comment on above: Performed By: #### C VDTBH #### [facility] [address] [place] [address] Dr. Grace Abdul LEUKOCYTES SMALL Abnormal NEGATIVE [facility] Comment on above: Performed By: #### C VDTBH #### [facility] [address] [address] [address] Grace Abdul Nitrite Ql (U) Negative Normal NEGATIVE The [facility] Comment on above: Performed By: #### C VDTBH #### [facility] [address] [place] [address] Dr. Grace Abdul pH (U) 7.0 [pH] Normal 5-9 [facility] Comment on above: Performed By: #### C VDTBH #### [facility] [address] [place] [address] Dr. Grace Abdul SPEC GRAVITY 1.010 Normal 1.005-<=1.025 [facility] Comment on above: Performed By: #### C VDTBH #### [facility] [address] [place] [address] Dr. Grace Abdul UA PROTEIN Negative Normal NEGATIVE/ TRACE [facility] Comment on above: Performed By: #### C VDTBH #### [facility] [address] [place] [address] Dr. Grace Abdul UR MICRO IND INDICATED Normal [facility] Comment on above: Performed By: #### C VDTBH #### [facility] [address] [place] [address] Dr. Grace Abdul Urobilinogen Qn (U) 0.2 {Ashley'U}/dL Normal 0.2 - 1. 0 [facility] Comment on above: Performed By: #### C VDTBH #### [facility] [address] [place] [address] Dr. Grace Abdul MAGNESIUMon 11-16-2021 Magnesium [Mass/Vol] 1.8 mg/dL Normal 1.8-2.4 [facility] Comment on above: Performed By: #### C VDTBH #### [facility] [address] [place] [address] Dr. Grace Abdul PROF CHEM 8 (BAS METB)on Anion gap [Moles/Vol] 12.7 mmol/L Normal [facility] Comment on above: Performed By: #### B MP #### [facility] [address] [place] [address] Dr. Grace Abdul Calcium [Mass/Vol] 8.3 mg/dL Critically low 8.5-10.1 Th e [facility] Comment on above: Performed By: #### B MP #### [facility] [address] [address] [address] Grace Abdul CO2 [Moles/Vol] 24.4 mmol/L Normal 21.0-32.0 [facility] Comment on above: Performed By: #### B MP #### [facility] [address] [address] [address] Grace Abdul Creatinine [Mass/Vol] 1.16 mg/dL Critically high 0.55-1.02 [facility] Comment on above: Performed By: #### B MP #### [facility] [address] [address] [address] Grace Abdul EGFR-AF [place] 54 mL/min/1.73m2 Critically low >=60 [facility] Comment on above: Performed By: #### B MP #### [facility] [address] [address] [address] Grace Abdul EGFR-NON AF [place] 45 mL/min/1.73m2 Critically low >=60 [facility] Comment on above: Performed By: #### B MP #### [facility] [address] [address] [address] Grace Abdul Glucose [Mass/Vol] 116 mg/dL Critically high 74-106 T [facility] Comment on above: Performed By: #### B MP #### [facility] [address] [address] [address] Grace Abdul Urea nitrogen [Mass/Vol] 20.0 mg/dL Critically high 7.0-18.0 [facility] Comment on above: Performed By: #### B MP #### [facility] [address] [address] [address] Grace Abdul Urea nitrogen/Creatinine [Mass ratio] 17.2 mg/mg Normal [facility] Comment on above: Performed By: #### B MP #### [facility] [address] [address] [address] Grace Abdul Anion gap [Moles/Vol] 10.0 mmol/L Normal [facility] Comment on above: Performed By: #### B MP #### [facility] [address] [address] [address] Grace Abdul Calcium [Mass/Vol] 8.8 mg/dL Normal 8.5-10.1 [facility] Comment on above: Performed By: #### B MP #### [facility] [address] [address] [address] Grace Abdul Chloride [Moles/Vol] 96 mmol/L Critically low 98-107 [facility] Comment on above: Performed By: #### B MP #### [facility] [address] [address] [address] Grace Abdul CO2 [Moles/Vol] 26.1 mmol/L Normal 21.0-32.0 [facility] Comment on above: Performed By: #### B MP #### [facility] [address] [address] [address] Grace Abdul Creatinine [Mass/Vol] 1.11 mg/dL Critically high 0.55-1.02 [facility] Comment on above: Performed By: #### B MP #### [facility] [address] [address] [address] Grace Abdul EGFR-AF [place] 57 mL/min/1.73m2 Critically low >=60 [facility] Comment on above: Performed By: #### B MP #### [facility] [address] [address] [address] Grace Abdul EGFR-NON AF [place] 47 mL/min/1.73m2 Critically low >=60 [facility] Comment on above: Performed By: #### B MP #### [facility] [address] [address] [address] Grace Abdul Glucose [Mass/Vol] 94 mg/dL Normal 74-106 The [facility] Comment on above: Performed By: #### B MP #### [facility] [address] [address] [address] Grace Abdul Potassium [Moles/Vol] 3.1 mmol/L Critically low 3.5-5.1 [facility] Comment on above: Performed By: #### B MP #### [facility] [address] [place] [address] Dr. Grace Abdul Performed By: #### C VDTBH #### [facility] [address] [place] [address] Dr. Grace Abdul Sodium [Moles/Vol] 129 mmol/L Critically low 136-145 Th [facility] Comment on above: Performed By: #### B MP #### [facility] [address] [place] [address] Dr. Grace Abdul Urea nitrogen [Mass/Vol] 16.0 mg/dL Normal 7.0-18.0 [facility] Comment on above: Performed By: #### B MP #### [facility] [address] [place] [address] Dr. Grace Abdul Urea nitrogen/Creatinine [Mass ratio] 14.4 mg/mg Normal [facility] Comment on above: Performed By: #### B MP #### [facility] [address] [place] [address] Dr. Grace Abdul Anion gap [Moles/Vol] 12.6 mmol/L Normal [facility] Comment on above: Performed By: #### C VDTBH #### [facility] [address] [place] [address] Dr. Grace Abdul Calcium [Mass/Vol] 8.6 mg/dL Normal 8.5-10.1 [facility] Comment on above: Performed By: #### C VDTBH #### [facility] [address] [place] [address] Dr. Grace Abdul Chloride [Moles/Vol] 95 mmol/L Critically low 98-107 [facility] Comment on above: Performed By: #### B MP #### [facility] [address] [place] [address] Dr. Grace Abdul Performed By: #### C VDTBH #### [facility] [address] [place] [address] Dr. Grace Abdul CO2 [Moles/Vol] 22.5 mmol/L Normal 21.0-32.0 [facility] Comment on above: Performed By: #### C VDTBH #### [facility] [address] [address] [address] Grace Abdul Creatinine [Mass/Vol] 0.95 mg/dL Normal 0.55-1.02 [facility] Comment on above: Performed By: #### C VDTBH #### [facility] [address] [address] [address] Grace Abdul EGFR-AF [place]ORE[place] >60 Normal >=60 [facility] Comment on above: Performed By: #### C VDTBH #### [facility] [address] [address] [address] Grace Abdul EGFR-NON AF [place] 56 mL/min/1.73m2 Critically low >=60 [facility] Comment on above: Performed By: #### C VDTBH #### [facility] [address] [address] [address] Grace Abdul Glucose [Mass/Vol] 92 mg/dL Normal 74-106 [facility] Comment on above: Performed By: #### C VDTBH #### [facility] [address] [address] [address] Grace Abdul Sodium [Moles/Vol] 127 mmol/L Critically low 136-145 Th [facility] Comment on above: Performed By: #### C VDTBH #### [facility] [address] [address] [address] Grace Abdul Urea nitrogen [Mass/Vol] 18.0 mg/dL Normal 7.0-18.0 [facility] Comment on above: Performed By: #### C VDTBH #### [facility] [address] [address] [address] Grace Abdul Urea nitrogen/Creatinine [Mass ratio] 18.9 mg/mg Normal [facility] Comment on above: Performed By: #### C VDTBH #### [facility] [address] [address] [address] Grace Abdul URINE MICROSCOPIC ONLYon BACTERIA TRACE Abnormal NONE SEEN [facility] Comment on above: Performed By: #### C VDTBH #### [facility] [address] [place] [address] Dr. Grace Abdul Bacteria identified Cx Nom (U) INDICATED Normal [facility] Comment on above: Performed By: #### C VDTBH #### [facility] [address] [place] [address] Dr. Grace Abdul CAST NONE SEEN Normal NONE SEEN [facility] Comment on above: Performed By: #### C VDTBH #### [facility] [address] [place] [address] Dr. Grace Abdul Crystals LM Nom (Urine sed) NONE SEEN Normal NONE SEEN [facility] Comment on above: Performed By: #### C VDTBH #### [facility] [address] [place] [address] Dr. Grace Abdul Epithelial cells LM Ql (Urine sed) FEW Abnormal NONE SEEN /RARE [facility] Comment on above: Performed By: #### C VDTBH #### [facility] [address] [place] [address] Dr. Grace Abdul MUCOUS NONE SEEN Normal NONE SEEN [facility] Comment on above: Performed By: #### C VDTBH #### [facility] [address] [place] [address] Dr. Grace Abdul RBC 2-5 Abnormal 0-2 [facility] Comment on above: Performed By: #### C VDTBH #### [facility] [address] [place] [address] Dr. Grace Abdul WBC 5-10 Abnormal NONE SEEN [facility] Comment on above: Performed By: #### C VDTBH #### [facility] [address] [place] [address] Dr. Grace Abdul AMYLASEon 11-15-2021 Amylase [Catalytic activity/Vol] 94 U/L Normal 25-115 [facility] Comment on above: Performed By: #### C VDTBH #### [facility] [address] [place] [address] Dr. Grace Abdul BNPon 11-15-2021 Natriuretic peptide B (Bld) [Mass/Vol] 357.0 pg/mL Normal <=1,800.0 [facility] Comment on above: Performed By: #### C VDTBH #### [facility] [address] [place] [address] Dr. Grace Abdul CARDIAC JOVITA ADMITon 022 CK [Catalytic activity/Vol] 66 U/L Normal 26-192 [facility] Comment on above: Performed By: #### C VDTBH #### [facility] [address] [place] [address] Dr. Grace Abdul CK.MB [Mass/Vol] 2.19 ng/mL Normal <=3.60 [facility] Comment on above: Performed By: #### C VDTBH #### [facility] [address] [place] [address] Dr. Grace Abdul HSTROP 9.5 pg/mL Normal 4.0-51.3 [facility] Comment on above: Result Comment: CUT- OFF POINTS HAVE BEEN ESTABLISHED BASED ON THE FOURTH UNIVERSAL DEFINITIONS OF MYOCARDIAL INFARCTION. THE UPPER REFERENCE LIMIT (URL) OF TROPONIN, DEFINED THE 99TH PERCENTILE OF cTnI DISTRIBUTION IN A REFERENCE POPULATION, HAS BEEN CONFIRMED THE DECISION THRESHOLD FOR [place] DIAGNOSIS. Performed By: #### C VDTBH #### [facility] [address] [place] [address] Dr. Grace Abdul JOHNNA 73 ng/mL Normal 9-82 [facility] Comment on above: Performed By: #### C VDTBH #### [facility] [address] [place] [address] Dr. Grace Abdul CBC AUTO DIFFon 11-15-2021 BASO # 0.0 103/ul Normal 0.0-0.1 [facility] Comment on above: Performed By: #### B MP #### [facility] [address] [place] [address] Dr. Grace Abdul Basophils/100 WBC (Bld) 0.1 % Critically low 0.2-2.0 [facility] Comment on above: Performed By: #### B MP #### [facility] [address] [place] [address] Dr. Grace Abdul EO # 0.0 103/ul Normal 0.0-0.7 [facility] Comment on above: Performed By: #### B MP #### [facility] [address] [place] [address] Dr. Grace Abdul Eosinophils/100 WBC (Bld) 0.1 % Critically low 0.9-7.0 [facility] Comment on above: Performed By: #### B MP #### [facility] [address] [place] [address] Dr. Grace Abdul Erythrocyte distribution width (RBC) [Ratio] 11.9 % Normal 11.0-15.0 [facility] Comment on above: Performed By: #### B MP #### [facility] [address] [place] [address] Dr. Grace Abdul Hematocrit (Bld) [Volume fraction] 36.6 % Normal 36.0-48.0 [facility] Comment on above: Performed By: #### B MP #### [facility] [address] [place] [address] Dr. Grace Abdul Hemoglobin (Bld) [Mass/Vol] 13.2 g/dL Normal 12.0-16.0 [facility] Comment on above: Performed By: #### B MP #### [facility] [address] [place] [address] Dr. Grace Abdul IG # 0.05 10e3/ul Critically high 0.00-0.03 [facility] Comment on above: Performed By: #### B MP #### [facility] [address] [place] [address] Dr. Grace Abdul IG % 0.7 % Critically high 0.0-0.5 [facility] Comment on above: Performed By: #### B MP #### [facility] [address] [place] [address] Dr. Grace Abdul LYMPH # 0.7 103/ul Critically low 1.2-3.8 [facility] Comment on above: Performed By: #### B MP #### [facility] [address] [place] [address] Dr. Grace Abdul Lymphocytes/100 WBC (Bld) 9.8 % Critically low 20.5-60.0 [facility] Comment on above: Performed By: #### B MP #### [facility] [address] [place] [address] Dr. Grace Abdul MANUAL DIFF REQ NO Normal [facility] Comment on above: Performed By: #### B MP #### [facility] [address] [place] [address] Dr. Grace Abdul MCH (RBC) [Entitic mass] 31.5 pg Normal 26.7-34.0 [facility] Comment on above: Performed By: #### B MP #### [facility] [address] [place] [address] Dr. Grace Abdul MCHC (RBC) [Mass/Vol] 36.1 g/dL Critically high 29.9-35.2 [facility] Comment on above: Performed By: #### B MP #### [facility] [address] [place] [address] Dr. Grace Abdul MCV (RBC) [Entitic vol] 87.4 fL Normal 81.0-99.0 [facility] Comment on above: Performed By: #### B MP #### [facility] [address] [place] [address] Dr. Grace Abdul MONO # 0.9 103/ul Critically high 0.3-0.8 [facility] Comment on above: Performed By: #### B MP #### [facility] [address] [place] [address] Dr. Grace Abdul Monocytes/100 WBC (Bld) 12.4 % Critically high 1.7-12.0 [facility] Comment on above: Performed By: #### B MP #### [facility] [address] [place] [address] Dr. Grace Abdul NEUT # 5.8 103/ul Normal 1.4-6.5 [facility] Comment on above: Performed By: #### B MP #### [facility] [address] [place] [address] Dr. Grace Abdul Neutrophils/100 WBC (Bld) 76.9 % Critically high 43.0-75.0 [facility] Comment on above: Performed By: #### B MP #### [facility] [address] [place] [address] Dr. Grace Abdul Platelet mean volume (Bld) [Entitic vol] 9.0 fL Critically low 9.5-13.5 [facility] Comment on above: Performed By: #### B MP #### [facility] [address] [place] [address] Dr. Grace Abdul PLT 361 103/ul Normal 150-450 [facility] Comment on above: Performed By: #### B MP #### [facility] [address] [address] [address] Grace Abdul RBC 4.19 106/ul Critically low 4.20-5.40 [facility] Comment on above: Performed By: #### B MP #### [facility] [address] [place] [address] Dr. Grace Abdul WBC 7.6 103/ul Normal 4.0-11.0 [facility] Comment on above: Performed By: #### B MP #### [facility] [address] [place] [address] Dr. Grace Abdul Covid-19 PCR ([facility])on 10-23 SARS-CoV-2 (COVID-19) RNA LUISITO+probe Ql (Unsp spec) Not detected Normal NOT DETECTED [facility] Comment on above: Result Comment: When diagnostic [...] for this test is supported by the Clinical Team Lead of Health and Human Service's declaration that [...] used). Performed By: #### C VDTBH #### [facility] [address] [place] [address] Dr. Grace Abdul LIPASEon 11-15-2021 Lipase [Catalytic activity/Vol] 178.0 U/L Normal 73.0-393.0 [facility] Comment on above: Performed By: #### C VDTBH #### [facility] [address] [place] [address] Dr. Grace Abdul PROF 14(COMP METB)on 022 Albumin [Mass/Vol] 4.1 g/dL Normal 3.4-5.0 [facility] Comment on above: Performed By: #### C VDTBH #### [facility] [address] [place] [address] Dr. Grace Abdul Albumin/Globulin [Mass ratio] 1.2 {ratio} Normal [facility] Comment on above: Performed By: #### C VDTBH #### [facility] [address] [place] [address] Dr. Grace Abdul ALP [Catalytic activity/Vol] 63 U/L Normal 46-116 [facility] Comment on above: Performed By: #### C VDTBH #### [facility] [address] [place] [address] Dr. Grace Abdul ALT [Catalytic activity/Vol] 29 U/L Normal 14-59 [facility] Comment on above: Performed By: #### C VDTBH #### [facility] [address] [place] [address] Dr. Grace Abdul Anion gap [Moles/Vol] 14.8 mmol/L Normal [facility] Comment on above: Performed By: #### C VDTBH #### [facility] [address] [place] [address] Dr. Grace Abdul AST [Catalytic activity/Vol] 25 U/L Normal 15-37 [facility] Comment on above: Performed By: #### C VDTBH #### [facility] [address] [address] [address] Grace Abdul Bilirubin [Mass/Vol] 0.6 mg/dL Normal 0.2-1.0 [facility] Comment on above: Performed By: #### C VDTBH #### [facility] [address] [address] [address] Grace Abdul Calcium [Mass/Vol] 9.4 mg/dL Normal 8.5-10.1 [facility] Comment on above: Performed By: #### C VDTBH #### [facility] [address] [address] [address] Grace Abdul Chloride [Moles/Vol] 83 mmol/L Critically low 98-107 [facility] Comment on above: Performed By: #### C VDTBH #### [facility] [address] [place] [address] Dr. Grace Abdul CO2 [Moles/Vol] 24.4 mmol/L Normal 21.0-32.0 [facility] Comment on above: Performed By: #### C VDTBH #### [facility] [address] [address] [address] Grace Abdul Creatinine [Mass/Vol] 1.15 mg/dL Critically high 0.55-1.02 [facility] Comment on above: Performed By: #### C VDTBH #### [facility] [address] [address] [address] Grace Abdul EGFR-AF [place] 55 mL/min/1.73m2 Critically low >=60 [facility] Comment on above: Performed By: #### C VDTBH #### [facility] [address] [address] [address] Grace Abdul EGFR-NON AF [place] 45 mL/min/1.73m2 Critically low >=60 [facility] Comment on above: Performed By: #### C VDTBH #### [facility] [address] [address] [address] Grace Abdul Globulin (S) [Mass/Vol] 3.4 g/dL Normal [facility] Comment on above: Performed By: #### C VDTBH #### [facility] [address] [place] [address] Dr. Grace Abdul Glucose [Mass/Vol] 147 mg/dL Critically high 74-106 T [facility] Comment on above: Performed By: #### C VDTBH #### [facility] [address] [place] [address] Dr. Grace Abdul Potassium [Moles/Vol] 3.2 mmol/L Critically low 3.5-5.1 [facility] Comment on above: Performed By: #### C VDTBH #### [facility] [address] [place] [address] Dr. Grace Abdul Protein [Mass/Vol] 7.5 g/dL Normal 6.4-8.2 [facility] Comment on above: Performed By: #### C VDTBH #### [facility] [address] [place] [address] Dr. Grace Abdul Urea nitrogen/Creatinine [Mass ratio] 21.7 mg/mg Normal [facility] Comment on above: Performed By: #### C VDTBH #### [facility] [address] [place] [address] Dr. Grace Abdul PROF CHEM 8 (BAS METB)on Anion gap [Moles/Vol] 13.6 mmol/L Normal [facility] Comment on above: Performed By: #### C VDTBH #### [facility] [address] [place] [address] Dr. Grace Abdul Calcium [Mass/Vol] 8.8 mg/dL Normal 8.5-10.1 [facility] Comment on above: Performed By: #### C VDTBH #### [facility] [address] [place] [address] Dr. Grace Abdul Chloride [Moles/Vol] 88 mmol/L Critically low 98-107 [facility] Comment on above: Performed By: #### C VDTBH #### [facility] [address] [place] [address] Dr. Grace Abdul CO2 [Moles/Vol] 21.8 mmol/L Normal 21.0-32.0 [facility] Comment on above: Performed By: #### C VDTBH #### [facility] [address] [place] [address] Dr. Grace Abdul Creatinine [Mass/Vol] 1.11 mg/dL Critically high 0.55-1.02 [facility] Comment on above: Performed By: #### C VDTBH #### [facility] [address] [place] [address] Dr. Grace Abdul EGFR-AF SOU[place]ORE[place] 57 mL/min/1.73m2 Critically low >=60 [facility] Comment on above: Performed By: #### C VDTBH #### [facility] [address] [place] [address] Dr. Grace Abdul EGFR-NON AF [place] 47 mL/min/1.73m2 Critically low >=60 [facility] Comment on above: Performed By: #### C VDTBH #### [facility] [address] [place] [address] Dr. Grace Abdlu Glucose [Mass/Vol] 132 mg/dL Critically high 74-106 T [facility] Comment on above: Performed By: #### C VDTBH #### [facility] [address] [place] [address] Dr. Grace Abdul Potassium [Moles/Vol] 3.4 mmol/L Critically low 3.5-5.1 [facility] Comment on above: Performed By: #### C VDTBH #### [facility] [address] [place] [address] Dr. Grace Abdul Sodium [Moles/Vol] 120 mmol/L Critically low 136-145 Th [facility] Comment on above: Result Comment: Test Repeated. Critical Value Verified Performed By: #### C VDTBH #### [facility] [address] [place] [address] Dr. Grace Abdul Urea nitrogen [Mass/Vol] 25.0 mg/dL Critically high 7.0-18.0 [facility] Comment on above: Performed By: #### C VDTBH #### [facility] [address] [address] [address] Grace Abdul Urea nitrogen/Creatinine [Mass ratio] 22.5 mg/mg Normal [facility] Comment on above: Performed By: #### C VDTBH #### [facility] [id number] Grace Abdul PROTIMEon 11-15-2021 INR Coag (PPP) [Relative time] 0.94 {INR} Normal [facility] Comment on above: Performed By: #### C VDTBH #### [facility] [address] [place] [address] Dr. Grace Abdul INR GUIDELINES SEE BELOW Normal [facility] Comment on above: Result Comment: DURAN RED INR: 2.0 - 3.0 CONDITIONS NOT LISTED BELOW 2.5 - 3.5 FOR PROSTHETIC HEART VALVE REPLACEMENT 2.5 - 3.5 RECURRENT THROMBOSIS Performed By: #### C VDTBH #### [facility] [address] [place] [address] Dr. Grace Abdul PT Coag (PPP) [Time] 10.2 s Normal 9.0-11.6 [facility] Comment on above: Performed By: #### C VDTBH #### [facility] [address] [place] [address] Dr. Grace Abdul XR ABD FLAT UP_PA [...] JARET LINARES Date: 2021-11-15 13:56 Normal [facility] BNPon 11-11-2021 Natriuretic peptide B (Bld) [Mass/Vol] 546.0 pg/mL Normal <=1,800.0 [facility] Comment on above: Performed By: #### C MP, TSH, HSTROPN, BNP ####[facility] [id number] [id number]. Grace Abdul CBC AUTO DIFFon 11-11-2021 BASO # 0.0 103/ul Normal 0.0-0.1 [facility] Comment on above: Performed By: #### C BC #### [facility] [address] [address] [address] Grace Abdul Basophils/100 WBC (Bld) 0.3 % Normal 0.2-2.0 [facility] Comment on above: Performed By: #### C BC #### [facility] [address] [place] [address] Dr. Grace Abdul EO # 0.0 103/ul Normal 0.0-0.7 [facility] Comment on above: Performed By: #### C BC #### [facility] [address] [place] [address] Dr. Garce Abdul Eosinophils/100 WBC (Bld) 0.5 % Critically low 0.9-7.0 [facility] Comment on above: Performed By: #### C BC #### [facility] [address] [place] [address] Dr. Grace Abdul Erythrocyte distribution width (RBC) [Ratio] 12.9 % Normal 11.0-15.0 [facility] Comment on above: Performed By: #### C BC #### [facility] [address] [place] [address] Dr. Grace Abdul Hematocrit (Bld) [Volume fraction] 36.1 % Normal 36.0-48.0 [facility] Comment on above: Performed By: #### C BC #### [facility] [address] [place] [address] Dr. Grace Abdul Hemoglobin (Bld) [Mass/Vol] 12.3 g/dL Normal 12.0-16.0 [facility] Comment on above: Performed By: #### C BC #### [facility] [address] [place] [address] Dr. Grace Abdul IG # 0.01 10e3/ul Normal 0.00-0.03 [facility] Comment on above: Performed By: #### C BC #### [facility] [address] [place] [address] Dr. Grace Abdul IG % 0.3 % Normal 0.0-0.5 [facility] Comment on above: Performed By: #### C BC #### [facility] [address] [place] [address] Dr. Grace Abdul LYMPH # 0.6 103/ul Critically low 1.2-3.8 [facility] Comment on above: Performed By: #### C BC #### [facility] [address] [place] [address] Dr. Grace Abdul Lymphocytes/100 WBC (Bld) 14.8 % Critically low 20.5-60.0 [facility] Comment on above: Performed By: #### C BC #### [facility] [address] [place] [address] Dr. Grace Abdul MANUAL DIFF REQ NO Normal [facility] Comment on above: Performed By: #### C BC #### [facility] [address] [place] [address] Dr. Grace Abdul MCH (RBC) [Entitic mass] 31.5 pg Normal 26.7-34.0 [facility] Comment on above: Performed By: #### C BC #### [facility] [address] [place] [address] Dr. Grace Abdul MCHC (RBC) [Mass/Vol] 34.1 g/dL Normal 29.9-35.2 [facility] Comment on above: Performed By: #### C BC #### [facility] [address] [place] [address] Dr. Grace Abdul MCV (RBC) [Entitic vol] 92.6 fL Normal 81.0-99.0 [facility] Comment on above: Performed By: #### C BC #### [facility] [address] [place] [address] Dr. Grace Abdul MONO # 0.5 103/ul Normal 0.3-0.8 [facility] Comment on above: Performed By: #### C BC #### [facility] [address] [place] [address] Dr. Grace Abdul Monocytes/100 WBC (Bld) 13.5 % Critically high 1.7-12.0 [facility] Comment on above: Performed By: #### C BC #### [facility] [address] [place] [address] Dr. Grace Abdul NEUT # 2.7 103/ul Normal 1.4-6.5 [facility] Comment on above: Performed By: #### C BC #### [facility] [address] [place] [address] Dr. Grace Abdul Neutrophils/100 WBC (Bld) 70.6 % Normal 43.0-75.0 [facility] Comment on above: Performed By: #### C BC #### [facility] [address] [place] [address] Dr. Grace Abdul Platelet mean volume (Bld) [Entitic vol] 9.2 fL Critically low 9.5-13.5 [facility] Comment on above: Performed By: #### C BC #### [facility] [address] [place] [address] Dr. Grace Abdul PLT 279 103/ul Normal 150-450 [facility] Comment on above: Performed By: #### C BC #### [facility] [address] [place] [address] Dr. Grace Abdul RBC 3.90 106/ul Critically low 4.20-5.40 [facility] Comment on above: Performed By: #### C BC #### [facility] [address] [place] [address] Dr. Grace Abdul WBC 3.9 103/ul Critically low 4.0-11.0 The [facility] Comment on above: Performed By: #### C BC #### [facility] [address] [place] [address] Dr. Grace Abdul PROF 14(COMP METB)on 022 Albumin [Mass/Vol] 3.3 g/dL Critically low 3.4-5.0 Th e [facility] Comment on above: Performed By: #### C MP, TSH, HSTROPN, BNP #### [facility] [address] [place] [address] Dr. Grace Abdul Albumin/Globulin [Mass ratio] 1.2 {ratio} Normal [facility] Comment on above: Performed By: #### C MP, TSH, HSTROPN, BNP #### [facility] [address] [place] [address] Dr. Grace Abdul ALP [Catalytic activity/Vol] 60 U/L Normal 46-116 [facility] Comment on above: Performed By: #### C MP, TSH, HSTROPN, BNP #### [facility] [address] [place] [address] Dr. Grace Abdul ALT [Catalytic activity/Vol] 26 U/L Normal 14-59 [facility] Comment on above: Performed By: #### C MP, TSH, HSTROPN, BNP #### [facility] [address] [place] [address] Dr. Grace Abdul Anion gap [Moles/Vol] 14.8 mmol/L Normal [facility] Comment on above: Performed By: #### C MP, TSH, HSTROPN, BNP #### [facility] [address] [place] [address] Dr. Grace Abdul AST [Catalytic activity/Vol] 20 U/L Normal 15-37 [facility] Comment on above: Performed By: #### C MP, TSH, HSTROPN, BNP #### [facility] [address] [place] [address] Dr. Grace Abdul Bilirubin [Mass/Vol] 0.3 mg/dL Normal 0.2-1.0 [facility] Comment on above: Performed By: #### C MP, TSH, HSTROPN, BNP #### [facility] [address] [place] [address] Dr. Grace Abdul Calcium [Mass/Vol] 8.2 mg/dL Critically low 8.5-10.1 Th e [facility] Comment on above: Performed By: #### C MP, TSH, HSTROPN, BNP #### [facility] [address] [place] [address] Dr. Grace Abdul Chloride [Moles/Vol] 100 mmol/L Normal 98-107 [facility] Comment on above: Performed By: #### C MP, TSH, HSTROPN, BNP #### [facility] [address] [place] [address] Dr. Grace Abdul CO2 [Moles/Vol] 23.8 mmol/L Normal 21.0-32.0 [facility] Comment on above: Performed By: #### C MP, TSH, HSTROPN, BNP #### [facility] [address] [place] [address] Dr. Grace Abdul Creatinine [Mass/Vol] 1.27 mg/dL Critically high 0.55-1.02 [facility] Comment on above: Performed By: #### C MP, TSH, HSTROPN, BNP #### [facility] [address] [place] [address] Dr. Grace Abdul EGFR-AF [place] 49 mL/min/1.73m2 Critically low >=60 [facility] Comment on above: Performed By: #### C MP, TSH, HSTROPN, BNP #### [facility] [address] [place] [address] Dr. Grace Abdul EGFR-NON AF [place] 40 mL/min/1.73m2 Critically low >=60 [facility] Comment on above: Performed By: #### C MP, TSH, HSTROPN, BNP #### [facility] [address] [place] [address] Dr. Grace Abdul Globulin (S) [Mass/Vol] 2.7 g/dL Normal [facility] Comment on above: Performed By: #### C MP, TSH, HSTROPN, BNP #### [facility] [address] [place] [address] Dr. Grace Abdul Glucose [Mass/Vol] 116 mg/dL Critically high 74-106 T [facility] Comment on above: Performed By: #### C MP, TSH, HSTROPN, BNP #### [facility] [address] [address] [address] Grace Abdul Potassium [Moles/Vol] 3.6 mmol/L Normal 3.5-5.1 [facility] Comment on above: Performed By: #### C MP, TSH, HSTROPN, BNP #### [facility] [address] [place] [address] Dr. Grace Abdul Protein [Mass/Vol] 6.0 g/dL Critically low 6.4-8.2 Th [facility] Comment on above: Performed By: #### C MP, TSH, HSTROPN, BNP #### [facility] [address] [place] [address] Dr. Grace Abdul Sodium [Moles/Vol] 135 mmol/L Critically low 136-145 Th [facility] Comment on above: Performed By: #### C MP, TSH, HSTROPN, BNP #### [facility] [address] [place] [address] Dr. Grace Abdul Urea nitrogen [Mass/Vol] 25.0 mg/dL Critically high 7.0-18.0 [facility] Comment on above: Performed By: #### C MP, TSH, HSTROPN, BNP #### [facility] [address] [place] [address] Dr. Grace Abdul Urea nitrogen/Creatinine [Mass ratio] 19.7 mg/mg Normal [facility] Comment on above: Performed By: #### C MP, TSH, HSTROPN, BNP #### [facility] [address] [place] [address] Dr. Grace Abdul PROTIMEon 11-11-2021 INR Coag (PPP) [Relative time] 0.95 {INR} Normal [facility] Comment on above: Performed By: #### B MP #### [facility] [address] [place] [address] Dr. Grace Abdul INR GUIDELINES SEE BELOW Normal [facility] Comment on above: Result Comment: DURAN RED INR: 2.0 - 3.0 CONDITIONS NOT LISTED BELOW 2.5 - 3.5 FOR PROSTHETIC HEART VALVE REPLACEMENT 2.5 - 3.5 RECURRENT THROMBOSIS Performed By: #### B MP #### [facility] [address] [address] [address] Grace Abdul PT Coag (PPP) [Time] 10.3 s Normal 9.0-11.6 [facility] Comment on above: Performed By: #### B MP #### [facility] [id number] Grace Abdul PTTon 11-11-2021 aPTT Coag (Bld) [Time] 21.3 s Critically low 22.3-36.2 [facility] Comment on above: Performed By: #### B MP #### [facility] [address] [address] [address] Grace Abdul TROPONIN, HIGH SENSITIVITYon 11-11-2021 HSTROP 6.5 pg/mL Normal 4.0-51.3 [facility] Comment on above: Result Comment: CUT- OFF POINTS HAVE BEEN ESTABLISHED BASED ON THE FOURTH UNIVERSAL DEFINITIONS OF MYOCARDIAL INFARCTION. THE UPPER REFERENCE LIMIT (URL) OF TROPONIN, DEFINED THE 99TH PERCENTILE OF cTnI DISTRIBUTION IN A REFERENCE POPULATION, HAS BEEN CONFIRMED THE DECISION THRESHOLD FOR [place] DIAGNOSIS. Performed By: #### C MP, TSH, HSTROPN, BNP #### [facility] [id number] Grace Abdul TSHon 11-11-2021 TSH 2.140 uIU/mL Normal 0.358-3.740 The [facility] Comment on above: Performed By: #### C MP, TSH, HSTROPN, BNP ####[facility] [id number] [place], [place] [address]Dr. Grace Abdul XR CHEST 1 Von 11-11-2021 [...] KRANTHI CONNORS Date: 2021-11-11 13:34 Normal [facility] CARDIAC JOVITA ADMITon 022 CK [Catalytic activity/Vol] 89 U/L Normal 26-192 [facility] Comment on above: Performed By: #### C VDTBH #### [facility] [address] [place] [address] Dr. Grace Abdul CK.MB [Mass/Vol] 1.92 ng/mL Normal <=3.60 [facility] Comment on above: Performed By: #### C VDTBH #### [facility] [address] [place] [address] Dr. Grace Abdul HSTROP 5.7 pg/mL Normal 4.0-51.3 [facility] Comment on above: Result Comment: CUT- OFF POINTS HAVE BEEN ESTABLISHED BASED ON THE FOURTH UNIVERSAL DEFINITIONS OF MYOCARDIAL INFARCTION. THE UPPER REFERENCE LIMIT (URL) OF TROPONIN, DEFINED THE 99TH PERCENTILE OF cTnI DISTRIBUTION IN A REFERENCE POPULATION, HAS BEEN CONFIRMED THE DECISION THRESHOLD FOR [place] DIAGNOSIS. Performed By: #### C VDTBH #### [facility] [address] [place] [address] Dr. Grace Abdul JOHNNA 86 ng/mL Critically high 9-82 [facility] Comment on above: Performed By: #### C VDTBH #### [facility] [address] [place] [address] Dr. Grace Abdul CBC AUTO DIFFon 09-13-2021 BASO # 0.0 103/ul Normal 0.0-0.1 [facility] Comment on above: Performed By: #### C VDTBH #### [facility] [address] [place] [address] Dr. Grace Abdul Basophils/100 WBC (Bld) 0.5 % Normal 0.2-2.0 [facility] Comment on above: Performed By: #### C VDTBH #### [facility] [address] [place] [address] Dr. Grace Abdul EO # 0.0 103/ul Normal 0.0-0.7 [facility] Comment on above: Performed By: #### C VDTBH #### [facility] [address] [place] [address] Dr. Grace Abdul Eosinophils/100 WBC (Bld) 0.7 % Critically low 0.9-7.0 [facility] Comment on above: Performed By: #### C VDTBH #### [facility] [address] [place] [address] Dr. Grace Abdul Erythrocyte distribution width (RBC) [Ratio] 13.2 % Normal 11.0-15.0 [facility] Comment on above: Performed By: #### C VDTBH #### [facility] [address] [place] [address] Dr. Grace Abdul Hematocrit (Bld) [Volume fraction] 34.8 % Critically low 36.0-48.0 [facility] Comment on above: Performed By: #### C VDTBH #### [facility] [address] [place] [address] Dr. Grace Abdul Hemoglobin (Bld) [Mass/Vol] 11.9 g/dL Critically low 12.0-16.0 [facility] Comment on above: Performed By: #### C VDTBH #### [facility] [address] [place] [address] Dr. Grace Abdul IG # 0.01 10e3/ul Normal 0.00-0.03 [facility] Comment on above: Performed By: #### C VDTBH #### [facility] [address] [place] [address] Dr. Grace Abdul IG % 0.2 % Normal 0.0-0.5 [facility] Comment on above: Performed By: #### C VDTBH #### [facility] [address] [place] [address] Dr. Grace Abdul LYMPH # 0.6 103/ul Critically low 1.2-3.8 The [facility] Comment on above: Performed By: #### C VDTBH #### [facility] [address] [place] [address] Dr. Grace Abdul Lymphocytes/100 WBC (Bld) 14.2 % Critically low 20.5-60.0 [facility] Comment on above: Performed By: #### C VDTBH #### [facility] [address] [place] [address] Dr. Grace Abdul MANUAL DIFF REQ NO Normal [facility] Comment on above: Performed By: #### C VDTBH #### [facility] [address] [place] [address] Dr. Grace Abdul MCH (RBC) [Entitic mass] 31.5 pg Normal 26.7-34.0 [facility] Comment on above: Performed By: #### C VDTBH #### [facility] [address] [place] [address] Dr. Grace Abdul MCHC (RBC) [Mass/Vol] 34.2 g/dL Normal 29.9-35.2 [facility] Comment on above: Performed By: #### C VDTBH #### [facility] [address] [place] [address] Dr. Grace Abdul MCV (RBC) [Entitic vol] 92.1 fL Normal 81.0-99.0 [facility] Comment on above: Performed By: #### C VDTBH #### [facility] [address] [place] [address] Dr. Grace Abdul MONO # 0.7 103/ul Normal 0.3-0.8 [facility] Comment on above: Performed By: #### C VDTBH #### [facility] [address] [place] [address] Dr. Garce Abdul Monocytes/100 WBC (Bld) 15.6 % Critically high 1.7-12.0 [facility] Comment on above: Performed By: #### C VDTBH #### [facility] [address] [place] [address] Dr. Grace Abdul NEUT # 3.0 103/ul Normal 1.4-6.5 [facility] Comment on above: Performed By: #### C VDTBH #### [facility] [address] [address] [address] Grace Abdul Neutrophils/100 WBC (Bld) 68.8 % Normal 43.0-75.0 [facility] Comment on above: Performed By: #### C VDTBH #### [facility] [address] [address] [address] Grace Abdul Platelet mean volume (Bld) [Entitic vol] 9.5 fL Normal 9.5-13.5 [facility] Comment on above: Performed By: #### C VDTBH #### [facility] [address] [address] [address] Grace Abdul PLT 303 103/ul Normal 150-450 [facility] Comment on above: Performed By: #### C VDTBH #### [facility] [address] [place] [address] Dr. Grace Abdul RBC 3.78 106/ul Critically low 4.20-5.40 [facility] Comment on above: Performed By: #### C VDTBH #### [facility] [address] [place] [address] Dr. Garce Abdul WBC 4.4 103/ul Normal 4.0-11.0 [facility] Comment on above: Performed By: #### C VDTBH #### [facility] [address] [place] [address] HEAD WO CONon [...] KRANTHI CONNORS Date: 2021-09-13 13:24 Normal [facility] Covid-19 PCR (CVDTB)on 08-22 SARS-CoV-2 (COVID-19) RNA LUISITO+probe Ql (Unsp spec) Not detected Normal NOT DETECTED [facility] Comment on above: Result Comment: When diagnostic [...] for this test is supported by the [place] of Health and Human Service's declaration that [...] used). Performed By: #### C VDTBH #### [facility] [address] [place] [address] Dr. Grace Abdul ER URINE PROFILEon 2 Bilirubin Ql (U) Negative Normal NEGATIVE [facility] Comment on above: Performed By: #### B MP #### [facility] [address] [place] [address] Dr. Grace Abdul Clarity (U) CLEAR Normal CLEAR [facility] Comment on above: Performed By: #### B MP #### [facility] [address] [place] [address] Dr. Grace Abdul Color (U) LT. YELLOW Normal YELLOW [facility] Comment on above: Performed By: #### B MP #### [facility] [address] [place] [address] Dr. Grace Abdul ERUAHD A micrscopic examination will be performed if indicated. Normal [facility] Comment on above: Performed By: #### B MP #### [facility] [address] [address] [address] Grace Abdul Glucose Ql (U) Negative Normal NEGATIVE [facility] Comment on above: Performed By: #### B MP #### [facility] [address] [address] [address] Grace Abdul Hemoglobin Ql (U) Negative Normal NEGATIVE [facility] Comment on above: Performed By: #### B MP #### [facility] [address] [address] [address] Grace Abdul Ketones Ql (U) TRACE Abnormal NEGATIVE [facility] Comment on above: Performed By: #### B MP #### [facility] [address] [place] [address] Dr. Grace Abdul LEUKOCYTES TRACE Abnormal NEGATIVE [facility] Comment on above: Performed By: #### B MP #### [facility] [address] [place] [address] Dr. Grace Abdul Nitrite Ql (U) Negative Normal NEGATIVE [facility] Comment on above: Performed By: #### B MP #### [facility] [address] [place] [address] Dr. Grace Abdul pH (U) 8.0 [pH] Normal 5-9 [facility] Comment on above: Performed By: #### B MP #### [facility] [address] [place] [address] Dr. Grace Abdul SPEC GRAVITY 1.015 Normal 1.005-<=1.025 [facility] Comment on above: Performed By: #### B MP #### [facility] [address] [address] [address] Grace Abdul UA PROTEIN Negative Normal NEGATIVE/ TRACE [facility] Comment on above: Performed By: #### B MP #### [facility] [address] [place] [address] Dr. Grace Abdul UR MICRO IND INDICATED Normal [facility] Comment on above: Performed By: #### B MP #### [facility] [address] [place] [address] Dr. Grace Abdul Urobilinogen Qn (U) 0.2 {Ashley'U}/dL Normal 0.2 - 1. 0 [facility] Comment on above: Performed By: #### B #### [facility] [address] [place] [address] Dr. Grace Abdul PROF 14(COMP METB)on 022 Albumin [Mass/Vol] 3.8 g/dL Normal 3.4-5.0 [facility] Comment on above: Performed By: #### C VDTBH #### [facility] [address] [place] [address] Dr. Grace Abdul Albumin/Globulin [Mass ratio] 1.4 {ratio} Normal [facility] Comment on above: Performed By: #### C VDTBH #### [facility] [address] [place] [address] Dr. Grace Abdul ALP [Catalytic activity/Vol] 53 U/L Normal 46-116 [facility] Comment on above: Performed By: #### C VDTBH #### [facility] [address] [place] [address] Dr. Grace Abdul ALT [Catalytic activity/Vol] 20 U/L Normal 14-59 [facility] Comment on above: Performed By: #### C VDTBH #### [facility] [address] [place] [address] Dr. Grace Abdul Anion gap [Moles/Vol] 12.0 mmol/L Normal [facility] Comment on above: Performed By: #### C VDTBH #### [facility] [address] [place] [address] Dr. Grace Abdul AST [Catalytic activity/Vol] 18 U/L Normal 15-37 [facility] Comment on above: Performed By: #### C VDTBH #### [facility] [address] [place] [address] Dr. Grace Abdul Bilirubin [Mass/Vol] 0.4 mg/dL Normal 0.2-1.0 [facility] Comment on above: Performed By: #### C VDTBH #### [facility] [address] [address] [address] Grace Abdul Calcium [Mass/Vol] 9.5 mg/dL Normal 8.5-10.1 [facility] Comment on above: Performed By: #### C VDTBH #### [facility] [address] [address] [address] Grace Abdul Chloride [Moles/Vol] 99 mmol/L Normal 98-107 [facility] Comment on above: Performed By: #### C VDTBH #### [facility] [address] [address] [address] Grace Abdul CO2 [Moles/Vol] 28.1 mmol/L Normal 21.0-32.0 [facility] Comment on above: Performed By: #### C VDTBH #### [facility] [address] [place] [address] Dr. Grace Abdul Creatinine [Mass/Vol] 1.25 mg/dL Critically high 0.55-1.02 [facility] Comment on above: Performed By: #### C VDTBH #### [facility] [address] [address] [address] Grace Abdul EGFR-AF [place]OU[place]ORE[place] 50 mL/min/1.73m2 Critically low >=60 [facility] Comment on above: Performed By: #### C VDTBH #### [facility] [address] [address] [address] Grace Abdul EGFR-NON AF [place] 41 mL/min/1.73m2 Critically low >=60 [facility] Comment on above: Performed By: #### C VDTBH #### [facility] [address] [address] [address] Grace Abdul Globulin (S) [Mass/Vol] 2.7 g/dL Normal [facility] Comment on above: Performed By: #### C VDTBH #### [facility] [address] [address] [address] Grace Abdul Glucose [Mass/Vol] 131 mg/dL Critically high 74-106 [facility] Comment on above: Performed By: #### C VDTBH #### [facility] [address] [place] [address] Dr. Grace Abdul Potassium [Moles/Vol] 4.1 mmol/L Normal 3.5-5.1 [facility] Comment on above: Performed By: #### C VDTBH #### [facility] [address] [place] [address] Dr. Grace Abdul Protein [Mass/Vol] 6.5 g/dL Normal 6.4-8.2 [facility] Comment on above: Performed By: #### C VDTBH #### [facility] [address] [place] [address] Dr. Grace Abdul Sodium [Moles/Vol] 135 mmol/L Critically low 136-145 Th [facility] Comment on above: Performed By: #### C VDTBH #### [facility] [address] [place] [address] Dr. Grace Abdul Urea nitrogen [Mass/Vol] 33.0 mg/dL Critically high 7.0-18.0 [facility] Comment on above: Performed By: #### C VDTBH #### [facility] [address] [place] [address] Dr. Grace Abdul Urea nitrogen/Creatinine [Mass ratio] 26.4 mg/mg Normal [facility] Comment on above: Performed By: #### C VDTBH #### [facility] [address] [place] [address] Dr. Grace Abdul URINE MICROSCOPIC ONLYon BACTERIA NONE SEEN Normal NONE SEEN [facility] Comment on above: Performed By: #### C BC #### [facility] [address] [place] [address] Dr. Grace Abdul Bacteria identified Cx Nom (U) NOT INDICATED Normal [facility] Comment on above: Performed By: #### C BC #### [facility] [address] [place] [address] Dr. Grace Abdul CAST NONE SEEN Normal NONE SEEN [facility] Comment on above: Performed By: #### C BC #### [facility] [address] [address] [address] Grace Abdul Crystals LM Nom (Urine sed) NONE SEEN Normal NONE SEEN [facility] Comment on above: Performed By: #### C BC #### [facility] [address] [place] [address] Dr. Grace Abdul Epithelial cells LM Ql (Urine sed) FEW Abnormal NONE SEEN /RARE [facility] Comment on above: Performed By: #### C BC #### [facility] [address] [place] [address] Dr. Grace Abdul MUCOUS NONE SEEN Normal NONE SEEN [facility] Comment on above: Performed By: #### C BC #### [facility] [address] [place] [address] Dr. Grace Abdul RBC 0-2 Normal 0-2 [facility] Comment on above: Performed By: #### C BC #### [facility] [address] [place] [address] Dr. Grace Abdul WBC 0-2 Abnormal NONE SEEN [facility] Comment on above: Performed By: #### C BC #### [facility] [address] [place] [address] Dr. Grace Abdul XR CHEST 1 Von [...] KRANTHI CONNORS Date: 2021-09-13 13:19 Normal [facility] CERV SP W/OBLS/FLEX/EXT 6 OR >on 12-12-2020 CERV SP W/OBLS/FLEX/EXT 6 OR > STUDY: CERV SP W/OBLS/FLEX/EXT 6 OR >; 12/12/2020 9:40 am INDICATION: NECK PAIN. COMPARISON: None. ACCESSION NUMBER(S): [id number] ORDERING CLINICIAN: Aiden Younger TECHNIQUE: AP, lateral, [...] findings. Dense left carotid artery calcifications. Normal [facility] Vital Signs Date Time Vital Sign Value Performing Clinician Aimee pollock 09-21-2022 12:51-0400 Diastolic blood pressure 60 mm[Hg] Carolyn Vanegas MD Work Phone: [facility] 09-21-2022 12:51-0400 Heart rate 67 /min Carolyn Vanegas MD Work Phone: [facility] 09-21-2022 12:51-0400 Systolic blood pressure 153 mm[Hg] Carolyn Vanegas MD Work Phone: [facility] 05-14-2022 14:24-0400 Diastolic blood pressure 87 mm[Hg] Marty Dozier DO Work Phone: [facility] 05-14-2022 14:24-0400 Heart rate 72 /min Marty Dozier DO Work Phone: [facility] 05-14-2022 14:24-0400 Systolic blood pressure 158 mm[Hg] Marty Dozier DO Work Phone: [facility] 05-14-2022 14:22-0400 Body height 152.4 cm Marty Dozier DO Work Phone: [facility] 05-14-2022 14:22-0400 Body weight 76.39 kg Marty Dozier DO Work Phone: [facility] 05-14-2022 14: SaO2% (BldA) [Mass fraction] 99 % Marty Dozier DO Work Phone: [facility] Encounters Encounter Date Encounter Type Care Provider Facility Start: 09-26-2023 End: 09-26-2023 ambulatory Lyn Quiñones MD [facility]: [facility] Start: 09-12-2023 End: 09-12-2023 ambulatory Lyn Quiñones MD Facility: [facility] Start: 08-18-2023 End: 08-18-2023 ambulatory Galina Rogers Facility:[facility] Start: 08-08-2023 End: 08-08-2023 ambulatory COLETTE [...] Start: 09-21-2022 End: 09-21-2022 ambulatory GALINA ROGERS Facility:[facility] Start: 09-21-2022 End: 09-21-2022 Patient [...] Start: 05-14-2022 End: 05-14-2022 ambulatory MARTY DOZIER Facility:[facility] Start: 05-14-2022 End: 05-14-2022 Patient [...] 09-12-2017 End: 09-13-2017 Patient encounter DEFAULT PHYSICIAN Facility:[facility] Plan of Treatment Date Care Activity Detail Author Start: 10-22-2022 Influenza vaccination INFLUENZA (#1) [facility] Start: 04-11-2022 COVID-19 VACCINE (6 - Moderna series) COVID-19 VACCINE (6 - Moderna series) [facility] Start: 02-21-2022 ADVANCE DIRECTIVE DISCUSSION ADVANCE DIRECTIVE DISCUSSION [facility] Start: 02-21-2022 DEPRESSION ASSESSMENT DEPRESSION ASS ESSMENT [facility] Start: 11-12-2017 PNEUMOCOCCAL: 65+ (2 - PPSV23 if available, else PCV20) PNEUMOCOCCAL: 65+ (2 - PPSV23 if available, else PCV20) [facility] Start: 11-12-2017 PNEUMOCOCCAL: 65+ (2 - PPSV23 or PCV20) PNEUMOCOCCAL: 65+ (2 - PPSV23 or PCV20) [facility] Start: 07-22-2017 SHINGRIX VACCINE (2 of 3) MANLEY GRIX VACCINE (2 of 3) [facility] Start: 04-30-2004 BONE DENSITY BONE DENSITY [facility] Start: 04-30-1984 DIABETES SCREEN DIABETES SCREEN [facility] Start: 04-30-1958 Urine microalbumin profile DTAP,TDAP ,TD (1 - Tdap) [facility] Immunizations Immunization Date Immunization Notes Care Provider Fa cility 12-02-2021 Influenza, injectabl e, Madin Montevallo Canine Kidney, preservative free, quadrivalent Marty Mendis DO Work Phone: [facility] 11-28-2020 influenza virus vacc ine, unspecified formulation Marty Mendis DO Work Phone: [facility] 11-29-2019 Seasonal trivalent influenza vaccine, adjuvanted, preservative free Marty Guillaumeis DO Work Phone: [facility] 05-27-2017 zoster vaccine, live Marty Dozier DO Work Phone: [facility] 11-12-2016 pneumococcal conjuga te vaccine, 13 valent Marty Mendis DO Work Phone: [facility] Payers Date Payer Category Payer Private Health Insurance [facility] AAR SUPPLEMENT [id number] 2022-Present [phone] [address] [place] [address] Indemnity [id number] 2004 Medicare [id number] 2004 Unknown 1959 Medicare [id number] 1959 Self-pay 1959 Unknown [id number] 1939 Unknown [id number] 2.16.840.1.163908.3.579.2 .593 1939 Unknown [id number] 2.16.840.1.489450.3.579.2 .593 1939 Unknown [id number] 2.16.840.1.697267.3.579.2 .593 1939 Unknown [id number] 2.16.840.1.692388.3.579.2 .593 1939 Unknown [id number] 2.16.840.1.922840.3.579.2 .593 1939 Unknown [id number] 2.16.840.1.408621.3.579.2 .593 1939 Unknown [id number] 2.16.840.1.012140.3.579.2 .593 1939 Unknown [id number] 2.16.840.1.113986.3.579.2 .593 1939 Unknown [id number] 2.16.840.1.937822.3.579.2 .593 1939 Unknown [id number] 2.16.840.1.592028.3.579.2 .593 1939 Unknown [id number] 2.16.840.1.524888.3.579.2 .593 1939 Unknown [id number] 2.16.840.1.629554.3.579.2 .593 1939 Unknown [id number] 2.16.840.1.534418.3.579.2 .593 1939 Unknown [id number] 2.16.840.1.082952.3.579.2 .593 1939 Unknown [id number] 2.16.840.1.158280.3.579.2 .593 1939 Unknown [id number] 2.16.840.1.585367.3.579.2 .593 1939 Unknown [id number] 2.16.840.1.208939.3.579.2 .593 1939 Unknown [id number] 2.16.840.1.618167.3.579.2 .593 1939 Unknown [id number] 2.16.840.1.793686.3.579.2 .593 1939 Unknown [id number] 2.16.840.1.726004.3.579.2 .593 1939 Unknown [id number] 2.16.840.1.957904.3.579.2 .593 1939 Unknown [id number] 2.16.840.1.174891.3.579.2 .593 1939 Unknown [id number] 2.16.840.1.285362.3.579.2 .593 1939 Unknown [id number] 2.16.840.1.341144.3.579.2 .593 1939 Unknown [id number] 2.16.840.1.820020.3.579.2 .593 1939 Unknown [id number] 2.16.840.1.705325.3.579.2 .1259 1939 Unknown [id number] 2.16.840.1.484798.3.579.2 .1259 1939 Unknown [id number] 2.16.840.1.046753.3.579.2 .196 1939 Unknown [id number] 2.16.840.1.810714.3.579.2 .196 1939 Unknown [id number] 2.16.840.1.145940.3.579.2 .196 1939 Unknown [id number] 2.16.840.1.209407.3.579.2 .196 1939 Unknown [id number] 2.16.840.1.785207.3.579.2 .196 1939 Unknown [id number] 2.16.840.1.907488.3.579.2 .196 1939 Unknown [id number] 2.16.840.1.217285.3.579.2 .196 1939 Unknown [id number] 2.16.840.1.742671.3.579.2 .196 Social History Date Type Detail Facility Start: 05-14-2022 Tobacco smoking stat us NHIS Never smoked tobacco [facility] Start: 05-14-2022 Tobacco use and exposure Smoke less tobacco non-user [facility] Start: 05-14-2022 End: 09-21-2022 Alcohol intake Lifetime non-drinker (finding) [facility] Start: 1940 Sex Assigned At Not on file [facility] Start: 05-09-2022 End: 09-21-2022 History of Social function [facility] Start: 05-09-2022 End: 09-21-2022 Tobacco use panel [facility] Adult Depression Scr eening Assessment 2 [facility] Clinical Notes 09-30-2021 to 09-21-2022 Patient InstructionsCarolyn Vanegas MD - 09/21/2022 12:43 PM Naa Alves PA-C - 08/26/2022 11:45 AM EDTTmonika Bowman - 08/19/2022 4:06 PM EDT Note Date & Type Note Facility 09-21-2022 Note HNO ID: [id number] Author: Carolyn Vanegas MD Service: ? Author [...] Health Percentile 1 (more content not included)... [facility] 09-21-2022 Instructions Carolyn Vanegas MD - [...] at this time. documented in this encounter [facility] 09-21-2022 History of Present illness Narrative [...] 4 - Moderate documented in this encounter [facility] 08-26-2022 Note HNO ID: [id number] Author: Kassandra Alves PA-C Service: ? Author Type: Physician [employer] Type: Progress Notes Filed: 08/26/2022 11:52 AM Note Text: Per Triage: Alexa Delgado is a 82 year old female that requests evaluation of spine. Per review, they have symptoms of lower back pain. Numbness/tingling right leg. Difficulty walking. Weakness Request: 1st available Referring provider: Galina Rogers MD Patient out of state: no 2nd opinion: no Prior spine surgery: yes 2006 [facility] Address: [address] [place] [address] CMT: PT Injections Tylenol Hydrocodone Studies (Reports [...] reviewed during the appt Kassandra Alves PA-C [facility] 08-26-2022 History of Present illness Narrative Per Triage: Alexa Delgado is a 82 year old female that requests evaluation of spine. Per review, they have symptoms of lower back pain. Numbness/tingling right leg. Difficulty walking. Weakness Request: 1st available Referring provider: Galina Rogers MD Patient out of state: no 2nd opinion: no Prior spine surgery: yes 2006 [facility] Address: [address] [place] [address] CMT: PT Injections Tylenol Hydrocodone Studies (Reports [...] Health Provider or Pain Management Provider at [facility]? No If answer is YES please [...] facility where the MRI/CT/myelogram was completed: [facility] Address: [address] [place] [address] MRI/CT/myelogram viewable in Epic: No If not, please provide [phone] to fax in imaging reports for review. [...] physical therapy was completed PT Injection [facility] Address: [address] [place] [address] Have you tried any other kinds of [...] where the surgery was completed: 2006 [facility] Address: [address] [place] [address] Additional Comments documented in this encounter [facility] 08-19-2022 Note HNO ID: [id number] Author: Micheal Bowman Service: ? Author Type: ? Type: Progress Notes Filed: 08/26/2022 11:52 AM Note Text: Patient name: Alexa Delgado Are you being referred by a [facility] Spine Health Provider or Pain Management Provider at [facility]? No If answer is YES please [...] facility where the MRI/CT/myelogram was completed: [facility] Address: [address] [place] [address] MRI/CT/myelogram viewable in Epic: No If not, please provide [phone] to fax in imaging reports for review. [...] and/or physical therapy was completed PT Injection [facility] Address: [address] [place] [address] Have you tried any other kinds of [...] of where the surgery was completed: 2006 [facility] Address: [address] [place] [address] Additional Comments [facility] 07-16-2022 Note PROCEDURE: XR HIP RT [...] authenticated by: HERMES MENDOZA Date: 2022-07-16 11:28 [facility] 05-14-2022 Note HNO ID: [id number] Author: Marty Dozier, DO Service: ? Author Type: Physician Type: Progress Notes Filed: 05/15/2022 10:02 PM Note Text: [facility] [place] [facility] [place] [facility] - [facility] Sp[facility] Initial [...] Ratio: R>L low back Current Treatment: Medications [place] 5-325 mg BID - helps Diclofenac 75 [...] but still has pain -01/28/22 Noemi Sequeira [employer]AST[employer]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 Niko Beckwith [...] today. She has an evaluation at the [facility] tomorrow at the Spine Center. RECOMMENDATIONS: We will see the patient back in the office after she undergoes evaluation there to discuss her treatment plan thereafter. We will see the patient back in the office in approximately four weeks' time or sooner if needed. PMH: Lumbar scoliosis Depression on Negrita (more content not included)... [facility] 05-14-2022 History of Present illness Narrative Images from the original note were not included. [facility] [place] [facility] [place] [facility] - [facility] Spine Initial [...] Ratio: R>L low back Current Treatment: Medications [place] 5-325 mg BID - helps Diclofenac 75 [...] but still has pain -01/28/22 Noemi Sequeira EASTERN PH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 Niko Beckwith [...] today. She has an evaluation at the [facility] tomorrow at the Spine Center. RECOMMENDATIONS: [...] reviewed 04/04/22 CT abd/pelvis with IV contrast, [facility], report: Abdominal wall: Old healed left pelvis fractures. Degenerative changes and scoliosis of the lumbar spine. IMPRESSION: No acute abdominal pathology. No acute inflammatory process. No obstructing urinary tract stone. No evidence for bowel obstruction. 11/15/21 XR abd, [facility], report: No acute osseous abnormality. There is moderate dextrocurvature of the lumbar spine. 05/08/2021 XR right hip/pelvis, [facility], report: Rotatory dextro scoliosis of the lumbar [...] TIME: 3:15 PM documented in this encounter [facility] 05-13-2022 Note CONSULTATION CONSULTATION DATE: 05/13/2022 [...] mg at h.s., diclofenac 75 mg b.i.d., [place] 5 mg b.i.d. EXAM: Notable for the [...] today. She has an evaluation at the [facility] tomorrow at the Spine Center. RECOMMENDATIONS: We will see the patient back in the office after she undergoes evaluation there to discuss her treatment plan thereafter. We will see the patient back in the office in approximately four weeks' time or sooner if needed. [facility] 04-06-2022 Note CONSULTATION CONSULTATION DATE: 04/06/2022 CHIEF [...] to kidney dysfunction also. The patient takes [place], however, is very controlled and limits it to the point of detriment. Education was done. The patient was instructed to take the [place] to a b.i.d. to t.i.d. basis. The [...] b.i.d. basis. The patient may increase the [place] to 5/325 t.i.d. We will schedule the [...] the procedure. CC: Galina Rogers M.D. [facility] 03-11-2022 Note CONSULTATION CONSULTATION DATE: 03/11/2022 HISTORY [...] gave improvement for 24 hours. Medications include [place] 5/325 b.i.d., diclofenac 75 mg b.i.d., citalopram [...] back pain. PLAN: We will refill her [place] 5/325 b.i.d. We will prescribe her Buderer cream with gabapentin, ketorolac and prilocaine/lidocaine to be placed over her right knee. We will trial Requip 0.25 mg q.h.s. We will see the patient in the clinic in three months' time unless otherwise indicated. Patient agrees with the plan. [facility] 01-28-2022 Note CONSULTATION CONSULTATION DATE: 01/28/2022 HISTORY [...] daily which decreases her pain. Medications include [place] 5/325 b.i.d., Flexeril 5 mg b.i.d., diclofenac [...] does consent to. We will refill the [place] 5/325 b.i.d. We will pre-authorize for a right genicular nerve block under fluoroscopy. Patient will follow up in the clinic thereafter. [facility] 01-28-2022 Note CONSULTATION PROCEDURE DATE: 01/28/2022 PREOPERATIVE [...] be followed up in the office. [facility] 12-31-2021 Note CONSULTATION CONSULTATION DATE: 12/31/2021 HISTORY [...] Current medications include diclofenac 75 mg b.i.d., [place] 5/325 b.i.d., citalopram, Flexeril and multivitamin regimen. The patient does state that she breaks her [place] in half and the most she takes [...] and would like to move forward. [facility] 09-30-2021 Note CONSULTATION CONSULTATION DATE: 09/30/2021 This is a very [id number] female accompanied by her returning to the [...] Current medications include diclofenac 50 mg b.i.d., [place] 5/325 b. i.d. and Tylenol. She does [...] at 25 mg q.h.s. Refill for her [place] 5/325 b.i.d. will be sent as well. The patient is to continue with her vitamin regimen which she is currently compliant with, as well as heat application and pool exercises. The patient will be followed up in the office in three months' time unless otherwise indicated. The patient agrees with the plan of care. [facility] Evaluation note Diagnosis Chronic bilateral low back pain with right-sided sciatica- Primary Back pain, lumbosacral Lumbago Chronic sacroiliac joint pain Disorders of sacrum Lumbar spondylosis Lumbosacral spondylosis without myelopathy Scoliosis of lumbar spine, unspecified scoliosis type [facility] Spinal stenosis, lumbar region with neurogenic claudication- Primary Spondylolisthesis, lumbar region Other idiopathic scoliosis, lumbar region [facility] Diagnosis Obesity, Class I, BMI 30-34.9- Primary Obesity, unspecified Spinal stenosis, lumbar region with neurogenic claudication documented in this encounter [facility] Summary Purpose Family History No Family [...] By Contac t Referred To Contact [facility] [place] Diagnoses Spinal stenosis, lumbar region with neurogenic claudication Procedures CONSULT TO [facility] ([facility]RON[facility] PAIN) OFFICE/OUTPATIENT [facility] HIGH MDM 60-74 MINUTES Carolyn Vanegas MD [address] [place] [address] Referral ID Status Reason Start Date Expiration Date Visits Requested Visits Authorized [id number] Pending Review PCP Requested Referral 09/21/2022 09/21/2023 1 1 Additional Source Comments INFORMATION SOURCE (unrecogn ized section and content) DATE CREATED AUTHOR 09/13/2017 [facility] DATE CREATED AUTHOR AUTHOR'S ORGANIZ ATION 12/13/2020 [facility] DATE CREATED AUTHOR AUTHOR'S ORGANIZ ATION 07/30/2022 [facility] DATE CREATED AUTHOR AUTHOR'S ORGANIZ ATION 09/22/2022 [facility] DATE CREATED AUTHOR AUTHOR'S ORGANIZ ATION 08/13/2023 [facility] DATE CREATED AUTHOR AUTHOR'S ORGANIZ ATION 10/10/2023 [facility] DATE CREATED AUTHOR AUTHOR'S ORGANIZ ATION 10/26/2023 [facility] Source Comments (unrecognize d section and content) In the event this informatio n is protected by the Federal Confidentiality of Alcohol and Drug Abuse Patient Records regulations: The Federal rules restrict any use of the information to criminally investigate or prosecute any alcohol or drug abuse patient.[facility] the event this information is protected by the Federal Confidentiality of Alcohol and Drug Abuse Patient Records regulations: The Federal rules restrict any use of the information to criminally investigate or prosecute any alcohol or drug abuse patient.[facility] the event this information is protected by the Federal Confidentiality of Alcohol and Drug Abuse Patient Records regulations: The Federal rules restrict any use of the information to criminally investigate or prosecute any alcohol or drug abuse patient.[facility] Reason for Visit (unrecogniz ed section and content) Reason Comments New Patient Evaluation Low Back Pain Reason Comments New Patient Care Teams (unrecognized sec tion and content) [employer] Relationship Specialty Start Date End Date Galina Rogers MD [address] [place] [phone] PCP - General Family Medicine 05/14/22 Colette De Leon Jr., DO [address] [facility] [address] [place], [place] [id number] Referring Orthopedics 05/03/22 Porsha Garcia [address] [address] Pain Management 05/14/22 Colette De Leon Jr., DO [address] [facility] [address] [place] [address] Orthopedics 05/14/22 [employer] Relationship Specialty Start Date End Date Galina Rogers MD [address] [place] [place] [phone] PCP - General Family Medicine 05/14/22 Colette De Leon Jr., DO [address] [place] [address] Referring Orthopedics 05/03/22 Lakshmipathy, Narendranath [address] [place] [phone] Pain Management 05/14/22 Colette De Leon Jr., DO [address] [place] [address] Orthopedics 05/14/22 Galina Rogers MD [address] [place] [place] [address] Referring Family Medicine 08/11/22 [employer] Relationship Specialty Start Date End Date Galina Rogers MD [address] [place] [place] [phone] PCP - General Family Medicine 05/14/22 Colette De Leon Jr., DO [address] [place] [address] Referring Orthopedics 05/03/22 Tereshmipathy, Narendranath [address] [place] [address] [place] [address], [place] [phone] Pain Management 05/14/22 Colette De Leon Jr., DO [address] [place] [address] Orthopedics 05/14/22 Galina Rogers MD [address] [place] [phone] Referring Family Medicine 08/11/22 FOR RECORDS PERTAINING [...] BE BASED ON THE PRIMARY CLINICAL RECORDS. [employer] [facility]. provides no warranty or guarantee of the accuracy or completeness of information in this document.
== END 2023-11-11 12:32 | disposition home or self-care (01) ==
LOC: VC 12:31
PROVIDERS: PCP Family Medicine; Visit Provider Family Medicine
DX: R60.0 Localized edema (principal)
CPT/HCPCS: 93970

== ENCOUNTER 2023-12-02 10:55 | Outpatient (OUT) | payer MEDICARE, SELFPAY ==
--- NOTE | 2023-12-02 10:57 | MM_ITS ---
Patient Name: KARINA CORMIER MR#: [id number] : 1940 Exam Date: 12/02/2023 Ordering Doctor: DR Luis Rogers . RADIOLOGY REPORT PROCEDURE: MM SCREENING MAMMO BI COMPARISON: MG MAMM SCREEN 3D [place] CAD, 11/25/2021. MM SCREENING MAMMO BI, 11/26/2022. INDICATIONS: Screening Calculator Name NCI Breast Cancer Risk Assessment Tool 5 Year Breast Cancer Risk 1.90% Lifetime Breast Cancer Risk 2.10% Personal Breast Cancer No Personal Ovarian Cancer No Treatments None Family Cancers None LOCATION: [facility] BREAST COMPOSITION: There are scattered areas of fibroglandular density. FINDINGS: DIAGNOSTIC CATEGORY 2--BENIGN FINDING. NO CHANGE FROM COMPARISON. Scattered benign-appearing calcifications are present. Scattered benign-appearing lymph nodes are present. RIGHT BREAST: No significant suspicious finding. LEFT BREAST: No significant suspicious finding. RECOMMENDATIONS: ROUTINE MAMMOGRAM AND CLINICAL EVALUATION IN 12 MONTHS. PLEASE NOTE: A NORMAL MAMMOGRAM DOES NOT EXCLUDE THE POSSIBILITY OF BREAST CANCER. A CLINICALLY SUSPICIOUS PALPABLE LUMP SHOULD BE BIOPSIED. Dictated by: Nando Suarez MD on 12/05/2023 at 09:12 Approved by: Nando Suarez MD on 12/05/2023 at 09:13
--- OUTSIDE RECORDS SUMMARY | 2023-12-02 10:57 | XMS_ITS | CCD ---
Author Organization [facility] Care Team Providers Care Senior Data Analyst Name Role Phone PHYSICIAN, DEFAULT Unavailable Unavailable PHYSICIAN, DEFAULT Unavailable Unavailable Haley Matos DO, George Cajetan Unavailable Galina Rogers MD Primary Care Provider [phone] Lakshmipathy, Narendranath Unavailable [phone] Haley Matos DO, George Cajeaydee Unavailable ESTELA [...] NIKO Austin Attending Unavailable BECKWITH ., DR INKO Austin Consulting Unavailable BECKWITH ., DR NIKO [...] Primary Care Unavailable EMILY NAVARRETE Consulting Unavailable MLEO ., ROGE Admitting Unavailable MELO ., ROGE [...] Unavailable HOY ., DR MOJICA Consulting Unavailable IONIA, DR HERMES Jean Baptiste Consulting Unavailable LATANYA [...] Codeine; Translations: [CODEINE] Drug Allergy 3 Unknown [facility] (4 sources) Penicillins; Translations: [PENICILLINS] Drug Allergy 3 Unknown [facility] (4 sources) pregabalin; Translations: [PREGABALIN] Drug Allergy 3 Intolerance [facility] Work Phone: (4 sources) Propoxyphene; Translations: [PROPOXYPHENE] Drug Allergy 3 Rash, Unknown [facility] (4 sources) quiNINE; Translations: [QUINAMM] Drug Allergy 3 GI Upset [facility] (5 sources) Decongest Multi-Action; Translations: [Decongest Multi-Action] Drug Allergy 3 Other: See Comments [facility] (1 source) Acetaminophen / HYDROcodone Drug Allergy [facility] (2 sources) Codeine Drug Allergy 3 [facility] (1 source) Fluconazole Drug Allergy [facility] (2 sources) Penicillins Drug allergy (disorder) 3 [facility] (1 source) pregabalin Drug Allergy [facility] (2 sources) Propoxyphene Drug Allergy [facility] (1 source) quiNINE Drug Allergy [facility] Medications Completed/Discontinued Medications Medication Drug [...] Comment on above: Take 1 tablet by [facility] twice daily as needed. aspirin 81 [...] above: Take by mouth twice daily. 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) drug therapy; Translations: [OTH JAIL CURRENT DRUG THERAPY] Onset: 04-06-2022 Episodic Other [...] Test Name Value Interpretation Reference Range Facility [facility] 08-18-2023 L Specimen: [id number] Received: 08/22/23 Status: SOUT Req Num: [id number] Spec Type: Impression Subm Dr: Galina Rogers MD Tissues: PATHPER Procedures: PATHREVIEW Age/ Patient Sex Location Account Attending Physician Alexa Delgado 83/F LABELL [id number] Galina Rogers MD SPEC NUM: [id number] RECD: 08/22/23 STATUS: SOUT REQ NUM: [id number] JANET: 08/18/[address]: Galina Rogers MD ENTERED: 08/22/23-[address] [facility] [address]: Annie Rivas SPEC TYPE: Impression DEPT: SHELLIE Simmons ENTERED BY: [id number] RECV BY: [id number] ORDERED: PATHREVIEW ORDERED: PATHREVIEW Pathologist Review Abnormal [...] initial report for the needed correction CPT: 86648 ---- ---- Specimen: [id number] Received: 08/22/23 Status: SOUAinsley Rejose Num: [id number] Spec Type: Impression Subm Dr: Galina Rogers MD Tissues: PATHPER Procedures: PATHREVIEW ---- Patient: Alexa Delgado [id number] (Continued) ---- Signed (signature on file) [place] Abdul MD 08/24/23918 [place] [facility] CN Office Visit (NSADHC ) ALEXA DELGADO ([id number]) 1940 F Date Time Provider Department 09/21/22 1:00 PM CAROLYN VANEGAS [facility] During your visit today, we recorded [...] Percentile 2 (more content not included)... Normal [facility] XR LSPINE 2_3 VIEWSon 2022 XR [...] by: HERMES MENDOZA Date: 2022-07-16 11:34 Normal [facility] CNOVon 05-14-2022 CNOV Office Visit (SPMESH ) ALEXA DELGADO ([id number]) 1940 F Date Time Provider Department 05/14/22 2:30 PM MARTY DOZIER During your visit today, we recorded the following information about you: Pulse Blood pressure Weight Height 72/minute 158/87 76.4 kg 1.524 m Marty Dozier DO 05/15/2022 10:02 PM Signed [facility] - Medical Spine Initial [...] Ratio: R>L low back Current Treatment: Medications [place] 5-325 mg BID - helps Diclofenac 75 [...] but still has pain -01/28/22 Noemi Sequeira AERONAUTICAL ENGINEER: BL Lumbar erector spinae TPI (0.125% [...] ongoing as of 04/17/21 -03/08/21 Noemi Sequeira AERONAUTICAL ENGINEER: Left rhomboid TPI (0.125% Marcaine, 40 mg Kenalog) -02/03/21 LESI - moderate relief for 4 days Prior spine surgery: -2006 L4-5 Discectomy Previously treated by: -[facility], previously Dr. Niko [...] today. She has an evaluation at the [facility] tomorrow at the [facility] Center. RECOMMENDATIONS: We will see the pat (more content not included)... Normal [facility] CULTURE URINEon 04-05-2022 CULTURE URINE Culture Observations : LIGHT GROWTH OF MIXED GENITAL ALANIS. NO POTENTIAL PATHOGENS SEEN. Normal [facility] Comment on above: Performed By: #### U RCX ####[facility] [address]ub[address] [place], [place] [address]Oy. Grace Abdul UA RANDOM W/MICROSCOPICon BACTERIA NONE SEEN Normal NONE SEEN [facility] Comment on above: Performed By: #### U AMIC ####[facility] [address]ns[address] [place] [address]Dr. Grace Abdul Bilirubin Ql (U) Negative Normal NEGATIVE [facility] Comment on above: Performed By: #### U AMIC ####[facility] [address]uznmwslzn[address] [place] [address]Dr. Grace Abdul CAST NONE SEEN Normal NONE SEEN [facility] Comment on above: Performed By: #### U AMIC ####[facility] Lzog[address] [place], [place] [address]Dr. Grace Abdul Clarity (U) CLEAR Normal CLEAR [facility] Comment on above: Performed By: #### U AMIC ####[facility] [address] [place], [place] [address]Dr. Grace Abdul Color (U) YELLOW Normal YELLOW [facility] Comment on above: Performed By: #### U AMIC ####[facility] Pug[address]cd[address] [place], [place] [address]Dr. Grace Abdul Crystals LM Nom (Urine sed) NONE SEEN Normal NONE SEEN [facility] Comment on above: Performed By: #### U AMIC ####[facility] Hyoybnfldr[address] [place], [place] [address]Dr. Grace Abdul Epithelial cells LM Ql (Urine sed) RARE Normal NONE SEEN /RARE [facility] Comment on above: Performed By: #### U AMIC ####[facility] Ylolcsqrug[address] [place], [place] [address]Dr. Grace Abdul Glucose Ql (U) Negative Normal NEGATIVE [facility] Comment on above: Performed By: #### U AMIC ####[facility] [address]hvfwlw[address] [place], [place] [address]Dr. Grace Abdul Hemoglobin Ql (U) MODERATE Abnormal NEGATIVE The [facility] Comment on above: Performed By: #### U AMIC ####[facility] Guyixyrxt[address] [place], [place] [address]Dr. Grace Abdul Ketones Ql (U) TRACE Abnormal NEGATIVE [facility] Comment on above: Performed By: #### U AMIC ####[facility] Ejseerveyx[address] [place], [place] [address]Dr. Grace Abdul LEUKOCYTES TRACE Abnormal NEGATIVE [facility] Comment on above: Performed By: #### U AMIC ####[facility] [address]ptminhfle[address] [place] [address]Dr. Grace Abdul MUCOUS NONE SEEN Normal NONE SEEN [facility] Comment on above: Performed By: #### U AMIC ####[facility] Hibratlrsa[address] [place] [address]Dr. Benitalee ann Abdul Nitrite Ql (U) Negative Normal NEGATIVE [facility] Comment on above: Performed By: #### U AMIC ####[facility] Fgkzoklkrs[address] [place] [address]Dr. Benitalee ann Abdul pH (U) 5.0 [pH] Normal 5-9 [facility] Comment on above: Performed By: #### U AMIC ####[facility] Ezvnerhitc[address] [place] [address]Dr. Grace Abdul RBC 0-2 Normal 0-2 [facility] Comment on above: Performed By: #### U AMIC ####[facility] Utrweibw[address] [place], [place] [address]Dr. Grace Abdul SPEC GRAVITY 1.015 Normal 1.005-<=1.025 [facility] Comment on above: Performed By: #### U AMIC ####[facility] [address]ofujslolm[address] [place] [address]Dr. Grace Abdul UA PROTEIN Negative Normal NEGATIVE/ TRACE [facility] Comment on above: Performed By: #### U AMIC ####[facility] Ezqrwplrku[address] [place] [address]Dr. Benitalee ann Abdul Urobilinogen Qn (U) 0.2 {Ashley'U}/dL Normal 0.2 - 1. 0 [facility] Comment on above: Performed By: #### U AMIC ####[facility] Icjvvvecyg[address] [place], [place] [address]Dr. Garce Abdul WBC 0-2 Abnormal NONE SEEN [facility] Comment on above: Performed By: #### U AMIC ####[facility] Hjhxiuyod[address] [place], [place] [address]Dr. Grace Abdul CBC AUTO DIFFon 04-04-2022 BASO # 0.0 103/ul Normal 0.0-0.1 [facility] Comment on above: Performed By: #### C BC ####[facility] [address]rj[address] [place] [id number]. Grace Abdul Basophils/100 WBC (Bld) 0.4 % Normal 0.2-2.0 [facility] Comment on above: Performed By: #### C BC ####[facility] [address]rojc[address] [place] [id number]. Grace Franko EO # 0.1 103/ul Normal 0.0-0.7 [facility] Comment on above: Performed By: #### C BC ####[facility] [address]uzcpl[address] [place] [address]Dr. Grace Franko Eosinophils/100 WBC (Bld) 1.3 % Normal 0.9-7.0 [facility] Comment on above: Performed By: #### C BC ####[facility] Lpermuerxp[address] [place] [address]Dr. Grace Abdul Erythrocyte distribution width (RBC) [Ratio] 13.7 % Normal 11.0-15.0 [facility] Comment on above: Performed By: #### C BC ####[facility] Xtgordokmq[address] [place] [id number]. Grace Abdul Hematocrit (Bld) [Volume fraction] 37.2 % Normal 36.0-48.0 [facility] Comment on above: Performed By: #### C BC ####[facility] X[address]ogyxcwg[address] [place] [id number]. Grace Abdul Hemoglobin (Bld) [Mass/Vol] 12.4 g/dL Normal 12.0-16.0 [facility] Comment on above: Performed By: #### C BC ####[facility] [address]dhtxrw[address] [place] [id number]. Grace Franko IG # 0.02 10e3/ul Normal 0.00-0.03 [facility] Comment on above: Performed By: #### C BC ####[facility] Yehxpquf[address] [place] [id number]. Grace Abdul IG % 0.4 % Normal 0.0-0.5 [facility] Comment on above: Performed By: #### C BC ####[facility] [address]rej[address] [place], [place] [address]Mn. Grace Abdul LYMPH # 0.8 103/ul Critically low 1.2-3.8 [facility] Comment on above: Performed By: #### C BC ####[facility] Jexrvmwfiu[address] [place] [phone]. Grace Abdul Lymphocytes/100 WBC (Bld) 13.9 % Critically low 20.5-60.0 [facility] Comment on above: Performed By: #### C BC ####[facility] [address]shyy[address] [place] [id number]. Grace Abdul MANUAL DIFF REQ NO Normal [facility] Comment on above: Performed By: #### C BC ####[facility] V[address]ui[address] [place] [id number]. Grace Abdul MCH (RBC) [Entitic mass] 30.5 pg Normal 26.7-34.0 [facility] Comment on above: Performed By: #### C BC ####[facility] Uxyaodrelz[address] [place] [id number]. Grace Abdul MCHC (RBC) [Mass/Vol] 33.3 g/dL Normal 29.9-35.2 [facility] Comment on above: Performed By: #### C BC ####[facility] [address]kkmsxbg[address] [place] [phone]. Grace Abdul MCV (RBC) [Entitic vol] 91.4 fL Normal 81.0-99.0 [facility] Comment on above: Performed By: #### C BC ####[facility] P[address] [place] [id number]. Grace Abdul MONO # 0.7 103/ul Normal 0.3-0.8 [facility] Comment on above: Performed By: #### C BC ####[facility] Rtdkofdonh[address] [place] [phone]. Grace Abdul Monocytes/100 WBC (Bld) 13.5 % Critically high 1.7-12.0 [facility] Comment on above: Performed By: #### C BC ####[facility] Rigosnvpcq[address] [place] [id number]. Grace Abdul NEUT # 3.8 103/ul Normal 1.4-6.5 [facility] Comment on above: Performed By: #### C BC ####[facility] [address]wetvcuhsw[address] [place] [phone]. Grace Abdul Neutrophils/100 WBC (Bld) 70.5 % Normal 43.0-75.0 [facility] Comment on above: Performed By: #### C BC ####[facility] Dywjdbeclz[address] [place] [phone]. Grace Abdul Platelet mean volume (Bld) [Entitic vol] 9.0 fL Critically low 9.5-13.5 [facility] Comment on above: Performed By: #### C BC ####[facility] Bzvfxapuaw[address] [place] [phone]. Grace Adbul PLT 283 103/ul Normal 150-450 [facility] Comment on above: Performed By: #### C BC ####[facility] Agtittixpg[address] [place] [phone]. Grace Abdul RBC 4.07 106/ul Critically low 4.20-5.40 [facility] Comment on above: Performed By: #### C BC ####[facility] [address] [place], [place] [address]Dr. Grace Abdul WBC 5.4 103/ul Normal 4.0-11.0 [facility] Comment on above: Performed By: #### C BC ####[facility] Uxowhtmtjw[address] [place] [phone]. Grace Abdul CT ABD/PELV W CONon 04-04-19 [...] EMILY NAVARRETE Date: 2022-04-04 16:59 Normal [facility] ER URINE PROFILEon 3 Bilirubin Ql (U) Negative Normal NEGATIVE [facility] Comment on above: Performed By: #### ROBERT FELDER ####[facility] [address]iykwxp[address] [place], [place] [address]Lz. Grace Abdul Clarity (U) CLEAR Normal CLEAR [facility] Comment on above: Performed By: #### ROBERT FELDER ####[facility] Cgucapacyj[address] [place], [place] [address]HxLisette Abdul Color (U) LT. YELLOW Normal YELLOW [facility] Comment on above: Performed By: #### ROBERT FELDER ####[facility] Qv[address]hdafld[address] [place] [address]Dr. Grace HIGGINS A micrscopic examination will be performed if indicated. Normal [facility] Comment on above: Performed By: #### ROBERT FELDER ####[facility] Gcnstxyfhm[address] [place] [address]Dr. Grace Abdul Glucose Ql (U) Negative Normal NEGATIVE [facility] Comment on above: Performed By: #### ROBERT FELDER ####[facility] Jxuncfgnjd6[address] [place] [address]Dr. Grace bAdul Hemoglobin Ql (U) SMALL Abnormal NEGATIVE The [facility] Comment on above: Performed By: #### ROBERT FELDER ####[facility] Lvzecgeinv[address] [place] [address]Dr. Grace Abdul Ketones Ql (U) Negative Normal NEGATIVE [facility] Comment on above: Performed By: #### ROBERT FELDER ####[facility] Wwrsh[address]ht[address] [place], [place] [address]Dr. Grace Abdul LEUKOCYTES TRACE Abnormal NEGATIVE [facility] Comment on above: Performed By: #### ROBERT FELDER ####[facility] [address] [place], [place] [address]Dr. Grace Abdul Nitrite Ql (U) Negative Normal NEGATIVE [facility] Comment on above: Performed By: #### ROBERT FELDER ####[facility] Gaiwhnvlrw[address] [place] [address]Dr. Grace Abdul pH (U) 7.5 [pH] Normal 5-9 [facility] Comment on above: Performed By: #### ROBERT FELDER ####[facility] [address]bs[address]lspf[address] [place], [place] [address]Dr. Grace Abdul SPEC GRAVITY 1.005 Normal 1.005-<=1.025 [facility] Comment on above: Performed By: #### ROBERT FELDER ####[facility] [address]vvefx[address]ig[address] [place], [place] [address]Dr. Grace Abdul UA PROTEIN Negative Normal NEGATIVE/ TRACE [facility] Comment on above: Performed By: #### ROBERT FELDER ####[facility] [address]jgeuoclrx[address] [place] [address]Dr. Grace Abdul UR MICRO IND INDICATED Normal [facility] Comment on above: Performed By: #### ROBERT FELDER ####[facility] Odfqslueoi[address] [place] [address]Dr. Grace Abdul Urobilinogen Qn (U) 0.2 {Ashley'U}/dL Normal 0.2 - 1. 0 [facility] Comment on above: Performed By: #### ROBERT FELDER ####[facility] St[address]qdxfi[address] [place], [place] [address]Dr. Grace Abdul LIPASEon 04-04-2022 Lipase [Catalytic activity/Vol] 115.0 U/L Normal 73.0-393.0 [facility] Comment on above: Performed By: #### C JOETB #### [facility] [address] [place] [address] Dr. Grace Abdul PROF 14(COMP METB)on 023 Albumin [Mass/Vol] 3.6 g/dL Normal 3.4-5.0 [facility] Comment on above: Performed By: #### Lakia DIAZTBH #### [facility] [address] [place] [address] Dr. Grace Abdul Albumin/Globulin [Mass ratio] 1.1 {ratio} Normal [facility] Comment on above: Performed By: #### C VDTBH #### [facility] [address] [place] [address] Dr. Grace Abdul ALP [Catalytic activity/Vol] 74 U/L Normal 46-116 [facility] Comment on above: Performed By: #### C VDTBH #### [facility] [address] [place] [address] Dr. Grace Abdul ALT [Catalytic activity/Vol] 23 U/L Normal 14-59 [facility] Comment on above: Performed By: #### C VDTBH #### [facility] [address] [place] [address] [address] Grace Abdul Anion gap [Moles/Vol] 12.1 mmol/L Normal [facility] Comment on above: Performed By: #### C VDTBH #### [facility] [address] [place] [address] [address] Grace Abdul AST [Catalytic activity/Vol] 21 U/L Normal 15-37 [facility] Comment on above: Performed By: #### C VDTBH #### [facility] [address] [place] [address] [address] Grace Abdul Bilirubin [Mass/Vol] 0.2 mg/dL Normal 0.2-1.0 [facility] Comment on above: Performed By: #### C VDTBH #### [facility] [address] [place] [address] Dr. Grace Abdul Calcium [Mass/Vol] 9.3 mg/dL Normal 8.5-10.1 [facility] Comment on above: Performed By: #### C VDTBH #### [facility] [address] [place] [address] Dr. Grace Abdul Chloride [Moles/Vol] 99 mmol/L Normal 98-107 [facility] Comment on above: Performed By: #### C VDTBH #### [facility] [address] [place] [address] Dr. Grace Abdul CO2 [Moles/Vol] 31.2 mmol/L Normal 21.0-32.0 [facility] Comment on above: Performed By: #### C VDTBH #### [facility] [address] [place] [address] Dr. Grace Abdul Creatinine [Mass/Vol] 1.22 mg/dL Critically high 0.55-1.02 [facility] Comment on above: Performed By: #### C VDTBH #### [facility] [address] [place] [address] [address] Grace Abdul EGFR-AF ZIMBABWEAN 51 mL/min/1.73m2 Critically low >=60 [facility] Comment on above: Performed By: #### C VDTBH #### [facility] [address] [place] [address] [address] Grace Abdul EGFR-NON AF ZIMBABWEAN 42 mL/min/1.73m2 Critically low >=60 [facility] Comment on above: Performed By: #### C VDTBH #### [facility] [address] [place] [address] [address] Grace Abdul Globulin (S) [Mass/Vol] 3.3 g/dL Normal [facility] Comment on above: Performed By: #### C VDTBH #### [facility] [address] [place] [address] [address] Grace Abdul Glucose [Mass/Vol] 115 mg/dL Critically high 74-106 [facility] Comment on above: Performed By: #### C VDTBH #### [facility] [address] [place] [address] Dr. Grace Abdul Potassium [Moles/Vol] 3.3 mmol/L Critically low 3.5-5.1 [facility] Comment on above: Performed By: #### C VDTBH #### [facility] [address] [place] [address] [address] Grace Abdul Protein [Mass/Vol] 6.9 g/dL Normal 6.4-8.2 [facility] Comment on above: Performed By: #### C VDTBH #### [facility] [address] [place] [address] [address] Grace Abdul Sodium [Moles/Vol] 139 mmol/L Normal 136-145 [facility] Comment on above: Performed By: #### C VDTBH #### [facility] [address] [place] [address] [address] Grace Abdul Urea nitrogen [Mass/Vol] 23.0 mg/dL Critically high 7.0-18.0 [facility] Comment on above: Performed By: #### C VDTBH #### [facility] [address] [place] [address] [address] Grace Abdul Urea nitrogen/Creatinine [Mass ratio] 18.9 mg/mg Normal [facility] Comment on above: Performed By: #### C VDTBH #### [facility] [address] [place] [address] [address] Grace Abdul URINE MICROSCOPIC ONLYon BACTERIA NONE SEEN Normal NONE SEEN [facility] Comment on above: Performed By: #### Anthony ELLISON UMICRO ####[facility] [address] [place] [address]Dr. Grace Abdul Bacteria identified Cx Nom (U) NOT INDICATED Normal [facility] Comment on above: Performed By: #### Anthony ELLISON UMICRO ####[facility] [address] [place] [address]Dr. Grace Abdul CAST NONE SEEN Normal NONE SEEN [facility] Comment on above: Performed By: #### Anthony ELLISON UMICRO ####[facility] [address] [place] [address]Dr. Grace Abdul Crystals LM Nom (Urine sed) NONE SEEN Normal NONE SEEN [facility] Comment on above: Performed By: #### Anthony ELLISON UMICRO ####[facility] [address]uk[address] [place] [address]Dr. Grace Abdul Epithelial cells LM Ql (Urine sed) RARE Normal NONE SEEN /RARE [facility] Comment on above: Performed By: #### Anthony ELLISON UMICRO ####[facility] [address]kl[address]qltbop[address] [place] [address]Dr. Grace Abdul MUCOUS NONE SEEN Normal NONE SEEN [facility] Comment on above: Performed By: #### Anthony ELLISON UMICRO ####[facility] Vcervuvytj[address] [place] [address]Dr. Grace Abdul RBC 0-2 Normal 0-2 [facility] Comment on above: Performed By: #### GINA FELDERRO ####[facility] Znfdjuuxvh8196 [place] [address]Dr. Grace Abdul WBC 0-2 Abnormal NONE SEEN [facility] Comment on above: Performed By: #### GINA FELDERRO ####[facility] [address] [place], [place] [address]DrLisette Abdul BNPon 12-11-2021 Natriuretic peptide B (Bld) [Mass/Vol] 665.0 pg/mL Normal <=1,800.0 [facility] Comment on above: Performed By: #### B MP #### [facility] [address], [place] [address] Dr. Grace Abdul CBC AUTO DIFFon 12-11-2021 BASO # 0.0 103/ul Normal 0.0-0.1 [facility] Comment on above: Performed By: #### C BC ####[facility] Ybhatuvbhi[address] [place] [address]DrLisette Abdul Basophils/100 WBC (Bld) 0.5 % Normal 0.2-2.0 [facility] Comment on above: Performed By: #### C BC ####[facility] Aqbdfinryb[address] [place] [address]DrLisette Abdul EO # 0.1 103/ul Normal 0.0-0.7 [facility] Comment on above: Performed By: #### C BC ####[facility] Pkfpripzmf[address] [place] [address]Dr. Grace Abdul Eosinophils/100 WBC (Bld) 1.9 % Normal 0.9-7.0 [facility] Comment on above: Performed By: #### C BC ####[facility] Zsefuaiynz18[address] [place] [address]DrLisette Abdul Erythrocyte distribution width (RBC) [Ratio] 13.4 % Normal 11.0-15.0 [facility] Comment on above: Performed By: #### C BC ####[facility] Eeixdvmkfo[address] [place] [address]DrLisette Abdul Hematocrit (Bld) [Volume fraction] 36.2 % Normal 36.0-48.0 [facility] Comment on above: Performed By: #### C BC ####[facility] Rrrmrqelui5[address] [place] [address]DrLisette Abdul Hemoglobin (Bld) [Mass/Vol] 11.9 g/dL Critically low 12.0-16.0 [facility] Comment on above: Performed By: #### C BC ####[facility] Gaakbzueco[address] [place] [address]Dr. Grace Abdul IG # 0.01 10e3/ul Normal 0.00-0.03 [facility] Comment on above: Performed By: #### C BC ####[facility] Cuupamcvwu[address] [place] [address]Dr. Grace Abdul IG % 0.2 % Normal 0.0-0.5 [facility] Comment on above: Performed By: #### C BC ####[facility] [address]kxpledrwn[address] [place] [address]Dr. Grace Abdul LYMPH # 0.5 103/ul Critically low 1.2-3.8 [facility] Comment on above: Performed By: #### C BC ####[facility] Gpgxdlgzkl1199 [place] [address]DrLisette Abdul Lymphocytes/100 WBC (Bld) 11.5 % Critically low 20.5-60.0 [facility] Comment on above: Performed By: #### C BC ####[facility] Ftmnbkpbmv[address] [place] [address]DrLisette Abdul MANUAL DIFF REQ NO Normal [facility] Comment on above: Performed By: #### C BC ####[facility] Hhueubdstx[address] [place] [address]Dr. Grace Abdul MCH (RBC) [Entitic mass] 31.6 pg Normal 26.7-34.0 [facility] Comment on above: Performed By: #### C BC ####[facility] Pgmdyivbqz3644 [place] [address]Dr. Grace Abdul MCHC (RBC) [Mass/Vol] 32.9 g/dL Normal 29.9-35.2 [facility] Comment on above: Performed By: #### C BC ####[facility] Ihloldifbn[address] [place] [address]Dr. Grace Abdul MCV (RBC) [Entitic vol] 96.0 fL Normal 81.0-99.0 [facility] Comment on above: Performed By: #### C BC ####[facility] Fyqrhdyinj[address] [place] [id number]. Grace Abdul MONO # 0.6 103/ul Normal 0.3-0.8 [facility] Comment on above: Performed By: #### C BC ####[facility] Jqdhjwribs[address] [place] [id number]. Grace Abdul Monocytes/100 WBC (Bld) 14.4 % Critically high 1.7-12.0 [facility] Comment on above: Performed By: #### C BC ####[facility] Cpzzqdkpro99[address] [place] [id number]. Grace Abdul NEUT # 3.0 103/ul Normal 1.4-6.5 [facility] Comment on above: Performed By: #### C BC ####[facility] Qmzknxvlbh8[address] [place] [address]Dr. Grace Abdul Neutrophils/100 WBC (Bld) 71.5 % Normal 43.0-75.0 [facility] Comment on above: Performed By: #### C BC ####[facility] Hwxhwssoxs3[address] [place] [id number]. Grace Abdul Platelet mean volume (Bld) [Entitic vol] 9.2 fL Critically low 9.5-13.5 [facility] Comment on above: Performed By: #### C BC ####[facility] Wiamt[address]zxk[address] [place] [id number]. Grace Abdul PLT 290 103/ul Normal 150-450 [facility] Comment on above: Performed By: #### C BC ####[facility] Zfgmpckikk[address] [place] [phone]. Grace Abdul RBC 3.77 106/ul Critically low 4.20-5.40 [facility] Comment on above: Performed By: #### C BC ####[facility] Hulykhkmrm[address] [place] [phone]. Grace Abdul WBC 4.2 103/ul Normal 4.0-11.0 [facility] Comment on above: Performed By: #### C BC ####[facility] Cyjbocbieh4316 [place] [address]DrLisette Abdul FREE THYROXINE INDEX T7on FTI 2.63 Normal 1.30-4.50 [facility] Comment on above: Performed By: #### B MP #### [facility] [address] [place] [address] [address] Grace Abdul T3U 35.0 % Normal 30.0-39.0 [facility] Comment on above: Performed By: #### B MP #### [facility] [address] [place] [address] [address] Grace Abdul T4 [Mass/Vol] 7.50 ug/dL Normal 4.80-13.90 [facility] Comment on above: Performed By: #### B MP #### [facility] [address] [place] [address] [address] Grace Abdul GLYCOHEMOGLOBIN A1Con 2021 ADA RECOMMENDATION SEE BELOW Normal [facility] Comment on above: Result Comment: ADA RECOMMENDED LIMIT 4.0 - 6.0 ADA THERAPEUTIC TARGET < 7.0 ACTION SUGGESTED > 7.0 Performed By: #### A 1C ####[facility] [address] [place], [place] [address]DrLisette Abdul Glucose [Mass/Vol] 111 mg/dL Normal [facility] Comment on above: Performed By: #### A 1C ####[facility] Vuqzmcbdex2446 [place] [address]DrLisette Abdul HbA1c (Bld) [Mass fraction] 5.5 % Normal 4.5-6.2 [facility] Comment on above: Performed By: #### A 1C ####[facility] Iqiuhenrmf4[address] [place] [address]DrLisette Abdul IRONon 12-11-2021 Iron [Mass/Vol] 50.0 ug/dL Normal 50.0-170.0 [facility] Comment on above: Performed By: #### I KASANDRA WEBSTER, VITB12 ####[facility] [address]phmcgbctn[address] [place] [address]Dr. Grace Abdul LIPID PROFILEon 12-11-2021 CHOL-HDL RATIO NORM SEE BELOW Normal [facility] Comment on above: Result Comment: 3.3 - 4.4 LOW RISK 4.4 - 7.1 AVERAGE RISK 7.1 - 11.0 MODERATE RISK >11.0 HIGH RISK Performed By: #### B MP #### [facility] [address] [place] [address] [address] Grace Abdul Cholesterol [Mass/Vol] 182 mg/dL Normal <=200 [facility] Comment on above: Performed By: #### B MP #### [facility] [address] [place] [address] [address] Grace Abdul Cholesterol in HDL [Mass/Vol] 60 mg/dL Normal 40-60 [facility] Comment on above: Performed By: #### B MP #### [facility] [address] [place] [address] [address] Grace Abdul Cholesterol in LDL [Mass/Vol] 101.2 mg/dL Normal [facility] Comment on above: Performed By: #### B MP #### [facility] [address] [place] [address] [address] Grace Abdul Cholesterol.total/Ch olesterol in HDL [Mass ratio] 3.0 {ratio} Normal [facility] Comment on above: Performed By: #### B MP #### [facility] [address] [place] [address] [address] Grace Abdul HDL NORMAL > or = 60 mg/dl - LO W CARDIOVASCULAR RISK <40 mg/dl - HIGH CARDIOVASCULAR RISK Normal [facility] Comment on above: Performed By: #### B MP #### [facility] [address] [place] [address] [address] Grace Abdul LDL CALC NORMAL SEE BELOW Normal [facility] Comment on above: Result Comment: <100 mg/dl OPTIMAL 100 - 129 mg/dl NEAR OR ABOVE OPTIMAL 130 - 159 mg/dl BORDERLINE HIGH 160 - 189 mg/dl HIGH >190 mg/dl VERY HIGH Performed By: #### B MP #### [facility] [address] [place] [address] [address] Grace Abdul Triglyceride [Mass/Vol] 104 mg/dL Normal <=150 [facility] Comment on above: Performed By: #### B MP #### [facility] [address] [place] [address] Dr. Grace Abdul VLDL CALC 20.8 mg/dL Normal [facility] Comment on above: Performed By: #### B MP #### [facility] [address] [place] [address] Dr. Grace Abdul PROF 14(COMP METB)on 022 Albumin [Mass/Vol] 3.5 g/dL Normal 3.4-5.0 [facility] Comment on above: Performed By: #### B MP #### [facility] [address] [place] [address] Dr. Grace Abdul Albumin/Globulin [Mass ratio] 1.0 {ratio} Normal [facility] Comment on above: Performed By: #### B MP #### [facility] [address] [place] [address] Dr. Grace Abdul ALP [Catalytic activity/Vol] 55 U/L Normal 46-116 [facility] Comment on above: Performed By: #### B MP #### [facility] [address] [place] [address] Dr. Grace Abdul ALT [Catalytic activity/Vol] 21 U/L Normal 14-59 [facility] Comment on above: Performed By: #### B MP #### [facility] [address] [place] [address] Dr. Grace Abdul Anion gap [Moles/Vol] 9.3 mmol/L Normal [facility] Comment on above: Performed By: #### B MP #### [facility] [address] [place] [address] Dr. Grace Abdul AST [Catalytic activity/Vol] 21 U/L Normal 15-37 [facility] Comment on above: Performed By: #### B MP #### [facility] [address] [place] [address] Dr. Grace Abdul Bilirubin [Mass/Vol] 0.3 mg/dL Normal 0.2-1.0 [facility] Comment on above: Performed By: #### B MP #### [facility] [address] [place] [address] [address] Grace Abdul Calcium [Mass/Vol] 9.5 mg/dL Normal 8.5-10.1 [facility] Comment on above: Performed By: #### B MP #### [facility] [address] [place] [address] [address] Grace Abdul Chloride [Moles/Vol] 102 mmol/L Normal 98-107 [facility] Comment on above: Performed By: #### B MP #### [facility] [address] [place] [address] [address] Grace Abdul CO2 [Moles/Vol] 28.5 mmol/L Normal 21.0-32.0 [facility] Comment on above: Performed By: #### B MP #### [facility] [address] [place] [address] [address] Grace Abdul Creatinine [Mass/Vol] 1.04 mg/dL Critically high 0.55-1.02 [facility] Comment on above: Performed By: #### B MP #### [facility] [address] [place] [address] [address] Grace Abdul EGFR-AF ZIMBABWEAN >60 Normal >=60 [facility] Comment on above: Performed By: #### B MP #### [facility] [address] [place] [address] [address] Grace Abdul EGFR-NON AF ZIMBABWEAN 51 mL/min/1.73m2 Critically low >=60 [facility] Comment on above: Performed By: #### B MP #### [facility] [address] [place] [address] [address] Grace Abdul Globulin (S) [Mass/Vol] 3.5 g/dL Normal [facility] Comment on above: Performed By: #### B MP #### [facility] [address] [place] [address] [address] Grace Abdul Glucose [Mass/Vol] 102 mg/dL Normal 74-106 [facility] Comment on above: Performed By: #### B MP #### [facility] [address] [place] [address] [address] Grace Abdul Potassium [Moles/Vol] 3.8 mmol/L Normal 3.5-5.1 [facility] Comment on above: Performed By: #### B MP #### [facility] [address] [place] [address] [address] Grace Abdul Protein [Mass/Vol] 7.0 g/dL Normal 6.4-8.2 [facility] Comment on above: Performed By: #### B MP #### [facility] [address] [place] [address] [address] Grace Abdul Sodium [Moles/Vol] 136 mmol/L Normal 136-145 [facility] Comment on above: Performed By: #### B MP #### [facility] [address] [place] [address] [address] Grace Abdul Urea nitrogen [Mass/Vol] 20.0 mg/dL Critically high 7.0-18.0 [facility] Comment on above: Performed By: #### B MP #### [facility] [address] [place] [address] [address] rGace Abdul Urea nitrogen/Creatinine [Mass ratio] 19.2 mg/mg Normal [facility] Comment on above: Performed By: #### B MP #### [facility] [address] [place] [address] [address] Grace Abdul TSHon 12-11-2021 TSH 0.247 uIU/mL Critically low 0.358-3.740 [facility] Comment on above: Performed By: #### B MP #### [facility] [address] [place] [address] [address] Grace Abdul VITAMIN B12on 12-11-2021 Cobalamin (Vitamin B12) [Mass/Vol] 762.0 pg/mL Normal 193.0-986.0 [facility] Comment on above: Performed By: #### I DARIN, VITAD, VITB12 ####[facility] [address] [place] [address]Dr. Grace Abdul VITAMIN D 25 OHon 12-11-2021 VIT D 25-OH 54.9 ng/mL Normal [facility] Comment on above: Performed By: #### I DARIN VITAD, VITB12 ####[facility] [address] [place], [place] [address]Yf. Grace Abdul VIT D RANGES SEE BELOW Normal [facility] Comment on above: Result Comment: <20 ng/mL Vit D deficient 20 - <30 ng/mL Vit D insufficient 30 - 100 ng/mL Vit D sufficient >100 ng/mL Potential Toxicity Performed By: #### I DARIN VITAD, VITB12 ####[facility] [address]sw[address] [place], [place] [address]Rw. Grace Franko MG MAMM SCREEN 3D CLEMENCIA CADon 11-25-2021 MG MAMM SCREEN 3D CLEMENCIA CAD Patient: ALEXA DELGADO Exam Date: 11/25/2021 : 1940 Gender:F Ordering : DR GALINA ROGERS . Admission #: [id number] Family : DR ELOISA MORALES Order #: [id number] CLICK HERE TO VIEW EXAM RADIOLOGY REPORT [...] Treatments None Family Cancers None LOCATION: [facility] BREAST COMPOSITION: Scattered areas fibroglandular density. [...] MD on 11/25/2021 at 14:14 Normal [facility] CULTURE URINEon 11-24-2021 CULTURE URINE Culture Observations : LIGHT GROWTH OF MIXED GENITAL ALANIS. NO POTENTIAL PATHOGENS SEEN. Normal [facility] Comment on above: Performed By: #### U RCX ####[facility] [address] [place] [address]Dr. Grace Abdul GI PANEL (PCR)on 11-24-2021 Adenovirus F 40/41 Not detected Normal NOT DETECTED [facility] Comment on above: Performed By: #### C BC #### [facility] [address] [place] [address] Dr. Grace Abdul Astrovirus Not detected Normal NOT DETECTED [facility] Comment on above: Performed By: #### C BC #### [facility] [address] [place] [address] Dr. Grace Dorman. Diff toxin A/B Not detected Normal NOT DETECTED [facility] Comment on above: Performed By: #### C BC #### [facility] [address] [place] [address] Dr. Grace Abdul Campylobacter Not detected Normal NOT DETECTED [facility] Comment on above: Performed By: #### C BC #### [facility] [address] [place] [address] Dr. Grace Abdul Cryptosporidium Not detected Normal NOT DETECTED [facility] Comment on above: Performed By: #### C BC #### [facility] [address] [place] [address] Dr. Grace Abdul Cyclos. Cayetanensis Not detected Normal NOT DETECTED [facility] Comment on above: Performed By: #### C BC #### [facility] [address] [place] [address] Dr. Grace Abdul E. Coli O157 Not Applicable Normal Not Applicable [facility] Comment on above: Performed By: #### C BC #### [facility] [address] [place] [address] Dr. Grace Abdul E. histolytica Not detected Normal NOT DETECTED [facility] Comment on above: Performed By: #### C BC #### [facility] [address] [place] [address] Dr. Grace Abdul EAEC Not detected Normal NOT DETECTED [facility] Comment on above: Performed By: #### C BC #### [facility] [address] [place] [address] Dr. Grace Abdul EIEC Not detected Normal NOT DETECTED [facility] Comment on above: Performed By: #### C BC #### [facility] [address] [place] [address] [address] Grace Abdul EPEC Not detected Normal NOT DETECTED [facility] Comment on above: Performed By: #### C BC #### [facility] [address] [place] [address] Dr. Grace Abdul ETEC Not detected Normal NOT DETECTED [facility] Comment on above: Performed By: #### C BC #### [facility] [address] [place] [address] Dr. Grace Smithlivanda Not detected Normal NOT DETECTED [facility] Comment on above: Performed By: #### C BC #### [facility] [address] [place] [address] Dr. Grace MCKEON CONTROLS PASSED Normal [facility] Comment on above: Performed By: #### C BC #### [facility] [address] [place] [address] Dr. Grace DIETRICH HEADER GI PANEL BACTERIA Normal T [facility] Comment on above: Performed By: #### C BC #### [facility] [address] [place] [address] Dr. Grace SANDERS ECOLI GI PANEL DIARRHEAGEN IC E.COLI / SHIGELLA Normal [facility] Comment on above: Performed By: #### C BC #### [facility] [address] [place] [address] Dr. Grace SANDERS INFO SEE BELOW [facility] Comment on above: Result Comment: EAEC - Enteroaggregative E. Coli EPEC- Enteropathogenic E. Coli ETEC- Enterotoxigenic E. Coli lt/st STEC- Shigella-like toxin-producing E. Coli stx1/stx2 EIEC- Shigella/Enteroinvasive E. Coli Performed By: #### C BC #### [facility] [address] [place], [place] [id number] Dr. Grace SANDERS PARASITES GI PANEL PARASITES Normal [facility] Comment on above: Performed By: #### C BC #### [facility] [address] [place] [address] Dr. Grace SANDERS VIRUS GI PANEL VIRUSES Normal [facility] Comment on above: Performed By: #### C BC #### [facility] [address] [place] [address] Dr. Grace Abdul Norovirus GI/GII Not detected Normal NOT DETECTED [facility] Comment on above: Performed By: #### C BC #### [facility] [address] [place] [address] Dr. Grace Abdul P. Shigelloides Not detected Normal NOT DETECTED [facility] Comment on above: Performed By: #### C BC #### [facility] [address] [place] [address] Dr. Grace Abdul Rotavirus A Not detected Normal NOT DETECTED [facility] Comment on above: Performed By: #### C BC #### [facility] [address] [place] [address] Dr. Graec Abdul Salmonella Not detected Normal NOT DETECTED [facility] Comment on above: Performed By: #### C BC #### [facility] [address] [place] [address] Dr. Grace Abdul Sapovirus Not detected Normal NOT DETECTED [facility] Comment on above: Performed By: #### C BC #### [facility] [address] [place] [address] Dr. Grace Abdul STEC Not detected Normal NOT DETECTED [facility] Comment on above: Performed By: #### C BC #### [facility] [address] [place] [address] Dr. Grace Abdul Vibrio Not detected Normal NOT DETECTED [facility] Comment on above: Performed By: #### C BC #### [facility] [address] [place] [address] Dr. Grace Abdul Vibrio Cholera Not detected Normal NOT DETECTED [facility] Comment on above: Performed By: #### C BC #### [facility] [address] [place] [address] [address] Grace Blue Enterocolitica Not detected Normal NOT DETECTED [facility] Comment on above: Performed By: #### C BC #### [facility] [address] [place] [address] [address] Grace Abdul UA RANDOM W/MICROSCOPICon BACTERIA NONE SEEN Normal NONE SEEN [facility] Comment on above: Performed By: #### U AMIC ####[facility] [address] [place] [address]Dr. Grace Abdul Bilirubin Ql (U) Negative Normal NEGATIVE [facility] Comment on above: Performed By: #### U AMIC ####[facility] [address] [place] [address]Dr. Grace Abdul CAST NONE SEEN Normal NONE SEEN [facility] Comment on above: Performed By: #### U AMIC ####[facility] [address] [place] [address]Dr. Grace Abdul Clarity (U) CLEAR Normal CLEAR [facility] Comment on above: Performed By: #### U AMIC ####[facility] [address] [place] [address]Dr. Grace Abdul Color (U) LT. YELLOW Normal YELLOW [facility] Comment on above: Performed By: #### U AMIC ####[facility] [address]ftt[address] [place] [address]Dr. Grace Abdul Crystals LM Nom (Urine sed) NONE SEEN Normal NONE SEEN [facility] Comment on above: Performed By: #### U AMIC ####[facility] [address] [place] [address]Dr. Grace Abdul Epithelial cells LM Ql (Urine sed) FEW Abnormal NONE SEEN /RARE [facility] Comment on above: Performed By: #### U AMIC ####[facility] [address] [place] [address]Dr. Grace Abdul Glucose Ql (U) Negative Normal NEGATIVE [facility] Comment on above: Performed By: #### U AMIC ####[facility] [address] [place] [address]Dr. Grace Abdul Hemoglobin Ql (U) TRACE-INTACT Abnormal NEGATIVE [facility] Comment on above: Performed By: #### U AMIC ####[facility] [facility] [address] [place] [address]Dr. Grace Abdul Ketones Ql (U) Negative Normal NEGATIVE [facility] Comment on above: Performed By: #### U AMIC ####[facility] [address] [place], [place] [address]Dr. Grace Abdul LEUKOCYTES Negative Normal NEGATIVE [facility] Comment on above: Performed By: #### U AMIC ####[facility] Bhzygjztlz[address] [place], [place] [address]Dr. Grace Abdul MUCOUS NONE SEEN Normal NONE SEEN [facility] Comment on above: Performed By: #### U AMIC ####[facility] [address] [place], [place] [address]Dr. Grace Franko Nitrite Ql (U) Negative Normal NEGATIVE [facility] Comment on above: Performed By: #### U AMIC ####[facility] [address] [place], [place] [address]Dr. Grace Abdul pH (U) 7.5 [pH] Normal 5-9 [facility] Comment on above: Performed By: #### U AMIC ####[facility] Nodeofncpb[address] [place], [place] [address]Dr. Grace Abdul RBC 0-2 Normal 0-2 [facility] Comment on above: Performed By: #### U AMIC ####[facility] [address] [place], [place] [address]Dr. Benitalee ann Abdul SPEC GRAVITY 1.010 Normal 1.005-<=1.025 [facility] Comment on above: Performed By: #### U AMIC ####[facility] C[address]sc[address] [place], [place] [address]Dr. Grace Abdul UA PROTEIN Negative Normal NEGATIVE/ TRACE [facility] Comment on above: Performed By: #### U AMIC ####[facility] [address] [place] [id number] Grace Abdul Urobilinogen Qn (U) 0.2 {Ashley'U}/dL Normal 0.2 - 1. 0 [facility] Comment on above: Performed By: #### U AMIC ####[facility] [address] [id number] Abdul WBC NONE SEEN Normal NONE SEEN [facility] Comment on above: Performed By: #### U AMIC ####[facility] [address] [id number]. Grace Abdul CBC AUTO DIFFon 11-23-2021 BASO # 0.0 103/ul Normal 0.0-0.1 [facility] Comment on above: Performed By: #### C BC #### [facility] [address] [address] [address] Grace Abdul Basophils/100 WBC (Bld) 0.4 % Normal 0.2-2.0 [facility] Comment on above: Performed By: #### C BC #### [facility] [address] [address] [address] Grace Abdul EO # 0.1 103/ul Normal 0.0-0.7 [facility] Comment on above: Performed By: #### C BC #### [facility] [address] [address] [address] Grace Abdul Eosinophils/100 WBC (Bld) 1.5 % Normal 0.9-7.0 [facility] Comment on above: Performed By: #### C BC #### [facility] [address] [address] [address] Grace Abdul Erythrocyte distribution width (RBC) [Ratio] 13.2 % Normal 11.0-15.0 [facility] Comment on above: Performed By: #### C BC #### [facility] [address] [address] [address] Grace Abdul Hematocrit (Bld) [Volume fraction] 31.9 % Critically low 36.0-48.0 [facility] Comment on above: Performed By: #### C BC #### [facility] [address] [address] [address] Grace Abdul Hemoglobin (Bld) [Mass/Vol] 10.5 g/dL Critically low 12.0-16.0 [facility] Comment on above: Performed By: #### C BC #### [facility] [address] [address] [address] Grace Abdul IG # 0.01 10e3/ul Normal 0.00-0.03 [facility] Comment on above: Performed By: #### C BC #### [facility] [address] [place] [address] Dr. Grace Abdul IG % 0.2 % Normal 0.0-0.5 [facility] Comment on above: Performed By: #### C BC #### [facility] [address] [place] [address] Dr. Grace Abdul LYMPH # 0.7 103/ul Critically low 1.2-3.8 [facility] Comment on above: Performed By: #### C BC #### [facility] [address] [place] [address] Dr. Grace Abdul Lymphocytes/100 WBC (Bld) 14.8 % Critically low 20.5-60.0 [facility] Comment on above: Performed By: #### C BC #### [facility] [address] [place] [address] Dr. Grace Abdul MANUAL DIFF REQ NO Normal [facility] Comment on above: Performed By: #### C BC #### [facility] [address] [place] [address] Dr. Grace Abdul MCH (RBC) [Entitic mass] 31.4 pg Normal 26.7-34.0 [facility] Comment on above: Performed By: #### C BC #### [facility] [address] [place] [address] Dr. Grace Abdul MCHC (RBC) [Mass/Vol] 32.9 g/dL Normal 29.9-35.2 [facility] Comment on above: Performed By: #### C BC #### [facility] [address] [place], [place] [id number] Dr. Grace Abdul MCV (RBC) [Entitic vol] 95.5 fL Normal 81.0-99.0 [facility] Comment on above: Performed By: #### C BC #### [facility] [address] [place] [address] Dr. Grace Abdul MONO # 0.6 103/ul Normal 0.3-0.8 [facility] Comment on above: Performed By: #### C BC #### [facility] [address] [place] [address] Dr. Grace Abdul Monocytes/100 WBC (Bld) 13.4 % Critically high 1.7-12.0 [facility] Comment on above: Performed By: #### C BC #### [facility] [address] [place] [address] Dr. Grace Abdul NEUT # 3.3 103/ul Normal 1.4-6.5 [facility] Comment on above: Performed By: #### C BC #### [facility] [address] [place] [address] Dr. Grace Abdul Neutrophils/100 WBC (Bld) 69.7 % Normal 43.0-75.0 [facility] Comment on above: Performed By: #### C BC #### [facility] [address] [place] [address] Dr. Grace Abdul Platelet mean volume (Bld) [Entitic vol] 9.1 fL Critically low 9.5-13.5 [facility] Comment on above: Performed By: #### C BC #### [facility] [address] [place] [address] Dr. Grace Abdul PLT 335 103/ul Normal 150-450 [facility] Comment on above: Performed By: #### C BC #### [facility] [address] [place] [address] Dr. Grace Abdul RBC 3.34 106/ul Critically low 4.20-5.40 [facility] Comment on above: Performed By: #### C BC #### [facility] [address] [place] [address] Dr. Grace Abdul WBC 4.8 103/ul Normal 4.0-11.0 [facility] Comment on above: Performed By: #### C BC #### [facility] [address] [place], [place] [address] Dr. Grace Abdul FREE THYROXINE INDEX T7on FTI 1.15 Critically low 1.30-4.50 [facility] Comment on above: Performed By: #### T 7, CMP, TSH ####[facility] [address] [id number] Abdul T3U 31.0 % Normal 30.0-39.0 [facility] Comment on above: Performed By: #### T 7, CMP, TSH ####[facility] [address] [place] [id number] Abdul T4 [Mass/Vol] 3.70 ug/dL Critically low 4.80-13.[address] [facility] Comment on above: Performed By: #### T 7, CMP, TSH ####[facility] [address] [id number] Abdul IRONon 11-23-2021 Iron [Mass/Vol] 52.0 ug/dL Normal 50.0-170.0 [facility] Comment on above: Performed By: #### C VDTB #### [facility] [address] [place], [place] [address] Dr. Grace Abdul PROF 14(COMP METB)on 022 Albumin [Mass/Vol] 3.5 g/dL Normal 3.4-5.0 [facility] Comment on above: Performed By: #### T 7, CMP, TSH ####[facility] [address] [id number] Abdul Albumin/Globulin [Mass ratio] 1.1 {ratio} Normal [facility] Comment on above: Performed By: #### T 7, CMP, TSH ####[facility] [address] [place] [id number] Abdul ALP [Catalytic activity/Vol] 69 U/L Normal 46-116 [facility] Comment on above: Performed By: #### T 7, CMP, TSH ####[facility] [address] [place] [address]Dr. Grace Abdul ALT [Catalytic activity/Vol] 51 U/L Normal 14-59 [facility] Comment on above: Performed By: #### T 7, CMP, TSH ####[facility] [address] [address]Dr. Grace Abdul Anion gap [Moles/Vol] 11.5 mmol/L Normal [facility] Comment on above: Performed By: #### T 7, CMP, TSH ####[facility] [address] [place], [place] [address]Dr. Grace Abdul AST [Catalytic activity/Vol] 24 U/L Normal 15-37 [facility] Comment on above: Performed By: #### T 7, CMP, TSH ####[facility] [address] [place], [place] [address]Dr. Grace Abdul Bilirubin [Mass/Vol] 0.2 mg/dL Normal 0.2-1.0 [facility] Comment on above: Performed By: #### T 7, CMP, TSH ####[facility] [address] [place], [place] [address]Dr. Grace Abdul Calcium [Mass/Vol] 9.3 mg/dL Normal 8.5-10.1 [facility] Comment on above: Performed By: #### T 7, CMP, TSH ####[facility] [address]xfabsll[address] [place], [place] [address]Dr. Grace Abdul Chloride [Moles/Vol] 98 mmol/L Normal 98-107 [facility] Comment on above: Performed By: #### T 7, CMP, TSH ####[facility] T[address] [place], [place] [address]Dr. Grace Abdul CO2 [Moles/Vol] 28.7 mmol/L Normal 21.0-32.0 [facility] Comment on above: Performed By: #### T 7, CMP, TSH ####[facility] Eff[address]ek[address] [place], [place] [address]Dr. Grace Abdul Creatinine [Mass/Vol] 1.11 mg/dL Critically high 0.55-1.02 [facility] Comment on above: Performed By: #### T 7, LEONOR, TSH ####[facility] [address] [place] [address]Dr. Grace Abdul EGFR-AF ZIMBABWEAN 57 mL/min/1.73m2 Critically low >=60 [facility] Comment on above: Performed By: #### T 7, CMP, TSH ####[facility] [address] [place] [address]Dr. Grace Abdul EGFR-NON AF ZIMBABWEAN 47 mL/min/1.73m2 Critically low >=60 [facility] Comment on above: Performed By: #### Ainsley 7, LEONOR, TSH ####[facility] [address] [place], [place] [address]Dr. Benitalee ann Abdul Globulin (S) [Mass/Vol] 3.3 g/dL Normal [facility] Comment on above: Performed By: #### T 7, CMP, TSH ####[facility] [address] [place], [place] [address]Dr. Grace Franko Glucose [Mass/Vol] 88 mg/dL Normal 74-106 [facility] Comment on above: Performed By: #### T 7, CMP, TSH ####[facility] [address] [place] [address]Dr. Benitalee ann Abdul Potassium [Moles/Vol] 4.2 mmol/L Normal 3.5-5.1 [facility] Comment on above: Performed By: #### T 7, CMP, TSH ####[facility] [address] [place] [address]Dr. Grace Abdul Protein [Mass/Vol] 6.8 g/dL Normal 6.4-8.2 [facility] Comment on above: Performed By: #### T 7, CMP, TSH ####[facility] [address] [place] [address]Dr. Benitalee ann Abdul Sodium [Moles/Vol] 134 mmol/L Critically low 136-145 [facility] Comment on above: Performed By: #### T 7, CMP, TSH ####[facility] [address] [place] [address]DrLisette Abdul Urea nitrogen [Mass/Vol] 33.0 mg/dL Critically high 7.0-18.0 [facility] Comment on above: Performed By: #### T 7, CMP, TSH ####[facility] [address] [place] [address]DrLisette Abdul Urea nitrogen/Creatinine [Mass ratio] 29.7 mg/mg Normal [facility] Comment on above: Performed By: #### T 7, CMP, TSH ####[facility] [address] [place] [address]DrLisette Abdul TSHon 11-23-2021 TSH 0.469 uIU/mL Normal 0.358-3.740 [facility] Comment on above: Performed By: #### T 7, CMP, TSH ####[facility] [address] [place] [address]DrLisette Abdul CBC AUTO DIFFon 11-17-2021 BASO # 0.0 103/ul Normal 0.0-0.1 [facility] Comment on above: Performed By: #### C VDTBH #### [facility] [address] [place] [address] Dr. Grace Abdul Basophils/100 WBC (Bld) 0.2 % Normal 0.2-2.0 [facility] Comment on above: Performed By: #### C VDTBH #### [facility] [address] [place] [address] Dr. Grace Abdul EO # 0.1 103/ul Normal 0.0-0.7 [facility] Comment on above: Performed By: #### C VDTBH #### [facility] [address] [place] [address] Dr. Grace Abdul Eosinophils/100 WBC (Bld) 0.9 % Normal 0.9-7.0 [facility] Comment on above: Performed By: #### C VDTBH #### [facility] [address] [place] [address] Dr. Grace Abdul Erythrocyte distribution width (RBC) [Ratio] 12.8 % Normal 11.0-15.0 [facility] Comment on above: Performed By: #### C VDTBH #### [facility] [address] [place] [address] Dr. Grace Abdul Hematocrit (Bld) [Volume fraction] 35.2 % Critically low 36.0-48.0 [facility] Comment on above: Performed By: #### C VDTBH #### [facility] [address] [place] [address] Dr. Grace Abdul Hemoglobin (Bld) [Mass/Vol] 12.1 g/dL Normal 12.0-16.0 [facility] Comment on above: Performed By: #### C VDTBH #### [facility] [address] [place] [address] Dr. Grace Abdul IG # 0.05 10e3/ul Critically high 0.00-0.03 [facility] Comment on above: Performed By: #### C VDTBH #### [facility] [address] [place] [address] Dr. Grace Abdul IG % 0.6 % Critically high 0.0-0.5 [facility] Comment on above: Performed By: #### C VDTBH #### [facility] [address] [place] [address] Dr. Grace Abdul LYMPH # 0.6 103/ul Critically low 1.2-3.8 [facility] Comment on above: Performed By: #### C VDTBH #### [facility] [address] [place] [address] Dr. Grace Abdul Lymphocytes/100 WBC (Bld) 7.4 % Critically low 20.5-60.0 [facility] Comment on above: Performed By: #### C VDTBH #### [facility] [address] [place] [address] Dr. Grace Abdul MANUAL DIFF REQ NO Normal [facility] Comment on above: Performed By: #### C VDTBH #### [facility] [address] [address] [address] Grace Abdul MCH (RBC) [Entitic mass] 31.5 pg Normal 26.7-34.0 [facility] Comment on above: Performed By: #### C VDTBH #### [facility] [address] [place] [address] Dr. Grace Abdul MCHC (RBC) [Mass/Vol] 34.4 g/dL Normal 29.9-35.2 [facility] Comment on above: Performed By: #### C VDTBH #### [facility] [address] [place] [address] Dr. Grace Abdul MCV (RBC) [Entitic vol] 91.7 fL Normal 81.0-99.0 [facility] Comment on above: Performed By: #### C VDTBH #### [facility] [address] [place] [address] Dr. Grace Abdul MONO # 1.0 103/ul Critically high 0.3-0.8 [facility] Comment on above: Performed By: #### C VDTBH #### [facility] [address] [place] [address] Dr. Grace Abdul Monocytes/100 WBC (Bld) 12.1 % Critically high 1.7-12.0 [facility] Comment on above: Performed By: #### C VDTBH #### [facility] [address] [place] [address] Dr. Grace Abdul NEUT # 6.3 103/ul Normal 1.4-6.5 [facility] Comment on above: Performed By: #### C VDTBH #### [facility] [address] [place] [address] Dr. Grace Abdul Neutrophils/100 WBC (Bld) 78.8 % Critically high 43.0-75.0 [facility] Comment on above: Performed By: #### C VDTBH #### [facility] [address] [place] [address] Dr. Grace Abdul Platelet mean volume (Bld) [Entitic vol] 9.1 fL Critically low 9.5-13.5 [facility] Comment on above: Performed By: #### C VDTBH #### [facility] [address] [place] [address] Dr. Grace Abdul PLT 281 103/ul Normal 150-450 [facility] Comment on above: Performed By: #### C VDTBH #### [facility] [address] [place] [address] Dr. Grace Abdul RBC 3.84 106/ul Critically low 4.20-5.40 [facility] Comment on above: Performed By: #### C VDTBH #### [facility] [address] [place] [address] Dr. Grace Abdul WBC 8.0 103/ul Normal 4.0-11.0 [facility] Comment on above: Performed By: #### C VDTBH #### [facility] [address] [place] [address] Dr. Grace Abdul MAGNESIUMon 11-17-2021 Magnesium [Mass/Vol] 1.9 mg/dL Normal 1.8-2.4 [facility] Comment on above: Performed By: #### C VDTBH #### [facility] [address] [place] [address] Dr. Grace Abdul PROF CHEM 8 (BAS METB)on Anion gap [Moles/Vol] 13.9 mmol/L Normal [facility] Comment on above: Performed By: #### C VDTBH #### [facility] [address] [place] [address] Dr. Grace Abdul Calcium [Mass/Vol] 8.7 mg/dL Normal 8.5-10.1 [facility] Comment on above: Performed By: #### C VDTBH #### [facility] [address] [place] [address] Dr. Grace Abdul Chloride [Moles/Vol] 101 mmol/L Normal 98-107 [facility] Comment on above: Performed By: #### C VDTBH #### [facility] [address] [place] [address] Dr. Grace Abdul CO2 [Moles/Vol] 24.3 mmol/L Normal 21.0-32.0 [facility] Comment on above: Performed By: #### C VDTBH #### [facility] [address] [place] [address] Dr. Grace Abdul Creatinine [Mass/Vol] 0.89 mg/dL Normal 0.55-1.02 [facility] Comment on above: Performed By: #### C VDTBH #### [facility] [address] [address] [address] Grace Abdul EGFR-AF ZIMBABWEAN >60 Normal >=60 [facility] Comment on above: Performed By: #### C VDTBH #### [facility] [address] [address] [address] Grace Abdul EGFR-NON AF ZIMBABWEAN >60 Normal >=60 [facility] Comment on above: Performed By: #### C VDTBH #### [facility] [address] [place] [address] Dr. Grace Abdul Glucose [Mass/Vol] 97 mg/dL Normal 74-106 [facility] Comment on above: Performed By: #### C VDTBH #### [facility] [address] [address] [address] Grace Abdul Potassium [Moles/Vol] 3.2 mmol/L Critically low 3.5-5.1 [facility] Comment on above: Performed By: #### C VDTBH #### [facility] [address] [place] [address] Dr. Grace Abdul Sodium [Moles/Vol] 136 mmol/L Normal 136-145 [facility] Comment on above: Performed By: #### C VDTBH #### [facility] [address] [address] [address] Grace Abdul Urea nitrogen [Mass/Vol] 14.0 mg/dL Normal 7.0-18.0 [facility] Comment on above: Performed By: #### C VDTBH #### [facility] [address] [address] [address] Grace Abdul Urea nitrogen/Creatinine [Mass ratio] 15.7 mg/mg Normal [facility] Comment on above: Performed By: #### C VDTBH #### [facility] [address] [place] [address] Dr. Grace Abdul CBC AUTO DIFFon 11-16-2021 BASO # 0.0 103/ul Normal 0.0-0.1 [facility] Comment on above: Performed By: #### B MP #### [facility] [address] [place] [address] Dr. Grace Abdul Basophils/100 WBC (Bld) 0.2 % Normal 0.2-2.0 [facility] Comment on above: Performed By: #### B MP #### [facility] [address] [place] [address] Dr. Grace Abdul EO # 0.0 103/ul Normal 0.0-0.7 [facility] Comment on above: Performed By: #### B MP #### [facility] [address] [place] [address] Dr. Grace Abdul Eosinophils/100 WBC (Bld) 0.5 % Critically low 0.9-7.0 [facility] Comment on above: Performed By: #### B MP #### [facility] [address] [place] [address] Dr. Grace Abdul Erythrocyte distribution width (RBC) [Ratio] 12.4 % Normal 11.0-15.0 [facility] Comment on above: Performed By: #### B MP #### [facility] [address] [place] [address] Dr. Grace Abdul Hematocrit (Bld) [Volume fraction] 33.6 % Critically low 36.0-48.0 [facility] Comment on above: Performed By: #### B MP #### [facility] [address] [place] [address] Dr. Grace Abdul Hemoglobin (Bld) [Mass/Vol] 11.8 g/dL Critically low 12.0-16.0 [facility] Comment on above: Performed By: #### B MP #### [facility] [address] [place] [address] Dr. Grace Abdul IG # 0.04 10e3/ul Critically high 0.00-0.03 [facility] Comment on above: Performed By: #### B MP #### [facility] [address] [place] [address] Dr. Grace Abdul IG % 0.7 % Critically high 0.0-0.5 [facility] Comment on above: Performed By: #### B MP #### [facility] [address] [place] [address] Dr. Grace Abdul LYMPH # 0.7 103/ul Critically low 1.2-3.8 [facility] Comment on above: Performed By: #### B MP #### [facility] [address] [place] [address] Dr. Grace Abdul Lymphocytes/100 WBC (Bld) 11.1 % Critically low 20.5-60.0 [facility] Comment on above: Performed By: #### B MP #### [facility] [address] [place] [address] Dr. Grace Abdul MANUAL DIFF REQ NO Normal [facility] Comment on above: Performed By: #### B MP #### [facility] [address] [place] [address] Dr. Grace Abdul MCH (RBC) [Entitic mass] 31.5 pg Normal 26.7-34.0 [facility] Comment on above: Performed By: #### B MP #### [facility] [facility] [address] [place] [address] Dr. Grace Abdul MCHC (RBC) [Mass/Vol] 35.1 g/dL Normal 29.9-35.2 [facility] Comment on above: Performed By: #### B MP #### [facility] [address] [place] [address] Dr. Grace Abdul MCV (RBC) [Entitic vol] 89.6 fL Normal 81.0-99.0 [facility] Comment on above: Performed By: #### B MP #### [facility] [address] [place] [address] Dr. Grace Abdul MONO # 0.9 103/ul Critically high 0.3-0.8 [facility] Comment on above: Performed By: #### B MP #### [facility] [address] [address] [address] Grace Abdul Monocytes/100 WBC (Bld) 14.0 % Critically high 1.7-12.0 [facility] Comment on above: Performed By: #### B MP #### [facility] [address] [address] [address] Grace Abdul NEUT # 4.5 103/ul Normal 1.4-6.5 [facility] Comment on above: Performed By: #### B MP #### [facility] [address] [place] [address] Dr. Grace Abdul Neutrophils/100 WBC (Bld) 73.5 % Normal 43.0-75.0 [facility] Comment on above: Performed By: #### B MP #### [facility] [address] [place] [address] Dr. Grace Abdul Platelet mean volume (Bld) [Entitic vol] 9.3 fL Critically low 9.5-13.5 [facility] Comment on above: Performed By: #### B MP #### [facility] [address] [place] [address] Dr. Grace Abdul PLT 292 103/ul Normal 150-450 [facility] Comment on above: Performed By: #### B MP #### [facility] [address] [place] [address] Dr. Grace Abdul RBC 3.75 106/ul Critically low 4.20-5.40 [facility] Comment on above: Performed By: #### B MP #### [facility] [address] [place] [address] Dr. Grace Abdul WBC 6.1 103/ul Normal 4.0-11.0 [facility] Comment on above: Performed By: #### B MP #### [facility] [address] [place] [address] Dr. Grace Abdul CULTURE URINEon 11-16-2021 CULTURE URINE Culture Observations : LIGHT GROWTH OF MIXED GENITAL ALANIS. NO POTENTIAL PATHOGENS SEEN. Normal [facility] Comment on above: Performed By: #### U RCX ####[facility] [id number] [id number]. Grace HERNANDEZ URINE PROFILEon 2 Bilirubin Ql (U) Negative Normal NEGATIVE [facility] Comment on above: Performed By: #### C VDTBH #### [facility] [address] [address] [address] Grace Abdul Clarity (U) CLEAR Normal CLEAR [facility] Comment on above: Performed By: #### C VDTBH #### [facility] [address] [address] [address] Grace Abdul Color (U) LT. YELLOW Normal YELLOW [facility] Comment on above: Performed By: #### C VDTBH #### [facility] [address] [place] [address] Dr. Grace HIGGINS A micrscopic examination will be performed if indicated. Normal [facility] Comment on above: Performed By: #### C VDTBH #### [facility] [address] [place] [address] Dr. Grace Abdul Glucose Ql (U) Negative Normal NEGATIVE [facility] Comment on above: Performed By: #### C VDTBH #### [facility] [address] [place] [address] Dr. Grace Abdul Hemoglobin Ql (U) SMALL Abnormal NEGATIVE The [facility] Comment on above: Performed By: #### C VDTBH #### [facility] [address] [address] [address] Grace Abdul Ketones Ql (U) 40 mg/dl Abnormal NEGATIVE [facility] Comment on above: Performed By: #### C VDTBH #### [facility] [address] [place] [address] Dr. Graec Abdul LEUKOCYTES SMALL Abnormal NEGATIVE [facility] Comment on above: Performed By: #### C VDTBH #### [facility] [address] [address] [address] Grace Abdul Nitrite Ql (U) Negative Normal NEGATIVE [facility] Comment on above: Performed By: #### C VDTBH #### [facility] [address] [place] [address] Dr. Grace Abdul pH (U) 7.0 [pH] Normal 5-9 [facility] Comment on above: Performed By: #### C VDTBH #### [facility] [address] [place] [address] Dr. Grace Abdul SPEC GRAVITY 1.010 Normal 1.005-<=1.025 [facility] Comment on above: Performed By: #### C VDTBH #### [facility] [address] [place] [address] Dr. Grace Abdul UA PROTEIN Negative Normal NEGATIVE/ TRACE [facility] Comment on above: Performed By: #### C VDTBH #### [facility] [address] [place] [address] Dr. Grace Abdul UR MICRO IND INDICATED Normal [facility] Comment on above: Performed By: #### C VDTBH #### [facility] [address] [place] [address] Dr. Grace Abdul Urobilinogen Qn (U) 0.2 {[place]'U}/dL Normal 0.2 - 1. 0 [facility] Comment on above: Performed By: #### C VDTBH #### [facility] [address] [place] [address] Dr. Grace Abdul MAGNESIUMon 11-16-2021 Magnesium [Mass/Vol] 1.8 mg/dL Normal 1.8-2.4 [facility] Comment on above: Performed By: #### C VDTBH #### [facility] [address] [place] [address] Dr. Grace Abdul PROF CHEM 8 (BAS METB)on Anion gap [Moles/Vol] 12.7 mmol/L Normal [facility] Comment on above: Performed By: #### B MP #### [facility] [address] [place] [address] Dr. Grace Abdul Calcium [Mass/Vol] 8.3 mg/dL Critically low 8.5-10.1 [facility] Comment on above: Performed By: #### B MP #### [facility] [address] [address] [address] Grace Abdul CO2 [Moles/Vol] 24.4 mmol/L Normal 21.0-32.0 [facility] Comment on above: Performed By: #### B MP #### [facility] [address] [address] [address] Grace Abdul Creatinine [Mass/Vol] 1.16 mg/dL Critically high 0.55-1.02 [facility] Comment on above: Performed By: #### B MP #### [facility] [address] [address] [address] Grace Abdul EGFR-AF ZIMBABWEAN 54 mL/min/1.73m2 Critically low >=60 [facility] Comment on above: Performed By: #### B MP #### [facility] [address] [address] [address] Grace Abdul EGFR-NON AF ZIMBABWEAN 45 mL/min/1.73m2 Critically low >=60 [facility] Comment on above: Performed By: #### B MP #### [facility] [address] [address] [address] Grace Abdul Glucose [Mass/Vol] 116 mg/dL Critically high 74-106 T [facility] Comment on above: Performed By: #### B MP #### [facility] [address] [address] [address] Grace Abdul Urea nitrogen [Mass/Vol] 20.0 mg/dL Critically high 7.0-18.0 [facility] Comment on above: Performed By: #### B MP #### [facility] [address] [address] [address] Grace Abdul Urea nitrogen/Creatinine [Mass ratio] 17.2 mg/mg Normal [facility] Comment on above: Performed By: #### B MP #### [facility] [address] [address] [address] Grace Abdul Anion gap [Moles/Vol] 10.0 mmol/L Normal [facility] Comment on above: Performed By: #### B MP #### [facility] [address] [address] [address] Grace Abdul Calcium [Mass/Vol] 8.8 mg/dL Normal 8.5-10.1 [facility] Comment on above: Performed By: #### B MP #### [facility] [address] [address] [address] Grace Abdul Chloride [Moles/Vol] 96 mmol/L Critically low 98-107 [facility] Comment on above: Performed By: #### B MP #### [facility] [address] [address] [address] Grace Abdul CO2 [Moles/Vol] 26.1 mmol/L Normal 21.0-32.0 [facility] Comment on above: Performed By: #### B MP #### [facility] [address] [address] [address] Grace Abdul Creatinine [Mass/Vol] 1.11 mg/dL Critically high 0.55-1.02 [facility] Comment on above: Performed By: #### B MP #### [facility] [address] [address] [address] Grace Abdul EGFR-AF ZIMBABWEAN 57 mL/min/1.73m2 Critically low >=60 [facility] Comment on above: Performed By: #### B MP #### [facility] [address] [address] [address] Grace Abdul EGFR-NON AF ZIMBABWEAN 47 mL/min/1.73m2 Critically low >=60 [facility] Comment on above: Performed By: #### B MP #### [facility] [address] [address] [address] Grace Abdul Glucose [Mass/Vol] 94 mg/dL Normal 74-106 [facility] Comment on above: Performed By: #### B MP #### [facility] [address] [address] [address] Grace Abdul Potassium [Moles/Vol] 3.1 mmol/L Critically low 3.5-5.1 [facility] Comment on above: Performed By: #### B MP #### [facility] [address] [place] [address] Dr. Grace Abdul Performed By: #### C VDTBH #### [facility] [address] [place] [address] Dr. Grace Abdul Sodium [Moles/Vol] 129 mmol/L Critically low 136-145 Th [facility] Comment on above: Performed By: #### B MP #### [facility] [address] [place] [address] Dr. Grace Abdul Urea nitrogen [Mass/Vol] 16.0 mg/dL Normal 7.0-18.0 [facility] Comment on above: Performed By: #### B MP #### [facility] [address] [place] [address] Dr. Grace Abdul Urea nitrogen/Creatinine [Mass ratio] 14.4 mg/mg Normal [facility] Comment on above: Performed By: #### B MP #### [facility] [address] [place] [address] Dr. Grace Abdul Anion gap [Moles/Vol] 12.6 mmol/L Normal [facility] Comment on above: Performed By: #### C VDTBH #### [facility] [address] [place] [address] Dr. Grace Abdul Calcium [Mass/Vol] 8.6 mg/dL Normal 8.5-10.1 [facility] Comment on above: Performed By: #### C VDTBH #### [facility] [address] [place] [address] Dr. Grace Abdul Chloride [Moles/Vol] 95 mmol/L Critically low 98-107 [facility] Comment on above: Performed By: #### B MP #### [facility] [address] [place] [address] Dr. Grace Abdul Performed By: #### C VDTBH #### [facility] [address] [place] [address] Dr. Grace Abdul CO2 [Moles/Vol] 22.5 mmol/L Normal 21.0-32.0 [facility] Comment on above: Performed By: #### C VDTBH #### [facility] [address] [address] [address] Grace Abdul Creatinine [Mass/Vol] 0.95 mg/dL Normal 0.55-1.02 [facility] Comment on above: Performed By: #### C VDTBH #### [facility] [address] [address] [address] Grace Abdul EGFR-AF ZIMBABWEAN >60 Normal >=60 [facility] Comment on above: Performed By: #### C VDTBH #### [facility] [address] [address] [address] Grace Abdul EGFR-NON AF ZIMBABWEAN 56 mL/min/1.73m2 Critically low >=60 [facility] Comment on above: Performed By: #### C VDTBH #### [facility] [address] [address] [address] Grace Abdul Glucose [Mass/Vol] 92 mg/dL Normal 74-106 [facility] Comment on above: Performed By: #### C VDTBH #### [facility] [address] [address] [address] Grace Abdul Sodium [Moles/Vol] 127 mmol/L Critically low 136-145 Th [facility] Comment on above: Performed By: #### C VDTBH #### [facility] [address] [address] [address] Grace Abdul Urea nitrogen [Mass/Vol] 18.0 mg/dL Normal 7.0-18.0 [facility] Comment on above: Performed By: #### C VDTBH #### [facility] [address] [address] [address] Grace Abdul Urea nitrogen/Creatinine [Mass ratio] 18.9 mg/mg Normal [facility] Comment on above: Performed By: #### C VDTBH #### [facility] [address] [address] [address] Grace Abdul URINE MICROSCOPIC ONLYon BACTERIA TRACE Abnormal NONE SEEN [facility] Comment on above: Performed By: #### C VDTBH #### [facility] [address] [place] [address] Dr. Grace Abdul Bacteria identified Cx Nom (U) INDICATED Normal [facility] Comment on above: Performed By: #### C VDTBH #### [facility] [address] [place] [address] Dr. Grace Abdul CAST NONE SEEN Normal NONE SEEN [facility] Comment on above: Performed By: #### C VDTBH #### [facility] [address] [place] [address] Dr. Grace Abdul Crystals LM Nom (Urine sed) NONE SEEN Normal NONE SEEN [facility] Comment on above: Performed By: #### C VDTBH #### [facility] [address] [place] [address] Dr. Grace Abdul Epithelial cells LM Ql (Urine sed) FEW Abnormal NONE SEEN /RARE [facility] Comment on above: Performed By: #### C VDTBH #### [facility] [address] [place] [address] Dr. Grace Abdul MUCOUS NONE SEEN Normal NONE SEEN [facility] Comment on above: Performed By: #### C VDTBH #### [facility] [address] [place] [address] Dr. Grace Abdul RBC 2-5 Abnormal 0-2 [facility] Comment on above: Performed By: #### C VDTBH #### [facility] [address] [place] [address] Dr. Grace Abdul WBC 5-10 Abnormal NONE SEEN [facility] Comment on above: Performed By: #### C VDTBH #### [facility] [address] [place] [address] Dr. Grace Abdul AMYLASEon 11-15-2021 Amylase [Catalytic activity/Vol] 94 U/L Normal 25-115 [facility] Comment on above: Performed By: #### C VDTBH #### [facility] [address] [place] [address] Dr. Grace Abdul BNPon 11-15-2021 Natriuretic peptide B (Bld) [Mass/Vol] 357.0 pg/mL Normal <=1,800.0 [facility] Comment on above: Performed By: #### C VDTBH #### [facility] [address] [place] [address] Dr. Grace Abdul CARDIAC JOVITA ADMITon 022 CK [Catalytic activity/Vol] 66 U/L Normal 26-192 [facility] Comment on above: Performed By: #### C VDTBH #### [facility] [address] [place] [address] Dr. Grace Abdul CK.MB [Mass/Vol] 2.19 ng/mL Normal <=3.60 [facility] Comment on above: Performed By: #### C VDTBH #### [facility] [address] [place] [address] Dr. Grace Abdul HSTROP 9.5 pg/mL Normal 4.0-51.3 [facility] Comment on above: Result Comment: CUT- OFF POINTS HAVE BEEN ESTABLISHED BASED ON THE FOURTH UNIVERSAL DEFINITIONS OF MYOCARDIAL INFARCTION. THE UPPER REFERENCE LIMIT (URL) OF TROPONIN, DEFINED THE 99TH PERCENTILE OF cTnI DISTRIBUTION IN A REFERENCE POPULATION, HAS BEEN CONFIRMED THE DECISION THRESHOLD FOR PR DIAGNOSIS. Performed By: #### C VDTBH #### [facility] [address] [place] [address] Dr. Grace Abdul JOHNNA 73 ng/mL Normal 9-82 [facility] Comment on above: Performed By: #### C VDTBH #### [facility] [address] [place] [address] Dr. Grace Abdul CBC AUTO DIFFon 11-15-2021 BASO # 0.0 103/ul Normal 0.0-0.1 [facility] Comment on above: Performed By: #### B MP #### [facility] [address] [place] [address] Dr. Grace Abdul Basophils/100 WBC (Bld) 0.1 % Critically low 0.2-2.0 [facility] Comment on above: Performed By: #### B MP #### [facility] [address] [place] [address] Dr. Grace Abdul EO # 0.0 103/ul Normal 0.0-0.7 [facility] Comment on above: Performed By: #### B MP #### [facility] [address] [place] [address] Dr. Grace Abdul Eosinophils/100 WBC (Bld) 0.1 % Critically low 0.9-7.0 [facility] Comment on above: Performed By: #### B MP #### [facility] [address] [place] [address] Dr. Grace Abdul Erythrocyte distribution width (RBC) [Ratio] 11.9 % Normal 11.0-15.0 [facility] Comment on above: Performed By: #### B MP #### [facility] [address] [place] [address] Dr. Grace Abdul Hematocrit (Bld) [Volume fraction] 36.6 % Normal 36.0-48.0 [facility] Comment on above: Performed By: #### B MP #### [facility] [address] [place] [address] Dr. Grace Abdul Hemoglobin (Bld) [Mass/Vol] 13.2 g/dL Normal 12.0-16.0 [facility] Comment on above: Performed By: #### B MP #### [facility] [address] [place] [address] Dr. Grace Abdul IG # 0.05 10e3/ul Critically high 0.00-0.03 [facility] Comment on above: Performed By: #### B MP #### [facility] [address] [place] [address] Dr. Grace Abdul IG % 0.7 % Critically high 0.0-0.5 [facility] Comment on above: Performed By: #### B MP #### [facility] [address] [place] [address] Dr. Grace Abdul LYMPH # 0.7 103/ul Critically low 1.2-3.8 [facility] Comment on above: Performed By: #### B MP #### [facility] [address] [place] [address] Dr. Grace Abdul Lymphocytes/100 WBC (Bld) 9.8 % Critically low 20.5-60.0 [facility] Comment on above: Performed By: #### B MP #### [facility] [address] [place] [address] Dr. Grace Abdul MANUAL DIFF REQ NO Normal [facility] Comment on above: Performed By: #### B MP #### [facility] [address] [place] [address] Dr. Grace Abdul MCH (RBC) [Entitic mass] 31.5 pg Normal 26.7-34.0 [facility] Comment on above: Performed By: #### B MP #### [facility] [address] [place] [address] Dr. Grace Abdul MCHC (RBC) [Mass/Vol] 36.1 g/dL Critically high 29.9-35.2 [facility] Comment on above: Performed By: #### B MP #### [facility] [address] [place] [address] Dr. Grace Abdul MCV (RBC) [Entitic vol] 87.4 fL Normal 81.0-99.0 [facility] Comment on above: Performed By: #### B MP #### [facility] [address] [place] [address] Dr. Grace Abdul MONO # 0.9 103/ul Critically high 0.3-0.8 [facility] Comment on above: Performed By: #### B MP #### [facility] [address] [place] [address] Dr. Grace Abdul Monocytes/100 WBC (Bld) 12.4 % Critically high 1.7-12.0 [facility] Comment on above: Performed By: #### B MP #### [facility] [address] [place] [address] Dr. Grace Abdul NEUT # 5.8 103/ul Normal 1.4-6.5 [facility] Comment on above: Performed By: #### B MP #### [facility] [address] [place] [address] Dr. Grace Abdul Neutrophils/100 WBC (Bld) 76.9 % Critically high 43.0-75.0 [facility] Comment on above: Performed By: #### B MP #### [facility] [address] [place] [address] Dr. Grace Abdul Platelet mean volume (Bld) [Entitic vol] 9.0 fL Critically low 9.5-13.5 [facility] Comment on above: Performed By: #### B MP #### [facility] [address] [place] [address] Dr. Grace Abdul PLT 361 103/ul Normal 150-450 [facility] Comment on above: Performed By: #### B MP #### [facility] [address] [address] [address] Grace Abdul RBC 4.19 106/ul Critically low 4.20-5.40 [facility] Comment on above: Performed By: #### B MP #### [facility] [address] [place] [address] Dr. Grace Abdul WBC 7.6 103/ul Normal 4.0-11.0 [facility] Comment on above: Performed By: #### B MP #### [facility] [address] [place] [address] Dr. Grace Abdul Covid-19 PCR ([facility])on 10-23 SARS-CoV-2 (COVID-19) RNA LUISITO+probe Ql (Unsp spec) Not detected Normal NOT DETECTED [facility] Comment on above: Result Comment: When [...] for this test is supported by the [employer] of Health and Human Service's declaration that [...] used). Performed By: #### C VDTBH #### [facility] [address] [place] [address] Dr. Grace Abdul LIPASEon 11-15-2021 Lipase [Catalytic activity/Vol] 178.0 U/L Normal 73.0-393.0 [facility] Comment on above: Performed By: #### C VDTBH #### [facility] [address] [place] [address] Dr. Grace Abdul PROF 14(COMP METB)on 022 Albumin [Mass/Vol] 4.1 g/dL Normal 3.4-5.0 [facility] Comment on above: Performed By: #### C VDTBH #### [facility] [address] [place] [address] Dr. Grace Abdul Albumin/Globulin [Mass ratio] 1.2 {ratio} Normal [facility] Comment on above: Performed By: #### C VDTBH #### [facility] [address] [place] [address] Dr. Grace Abdul ALP [Catalytic activity/Vol] 63 U/L Normal 46-116 [facility] Comment on above: Performed By: #### C VDTBH #### [facility] [address] [place] [address] Dr. Grace Abdul ALT [Catalytic activity/Vol] 29 U/L Normal 14-59 [facility] Comment on above: Performed By: #### C VDTBH #### [facility] [address] [place] [address] Dr. Grace Abdul Anion gap [Moles/Vol] 14.8 mmol/L Normal [facility] Comment on above: Performed By: #### C VDTBH #### [facility] [address] [place] [address] Dr. Grace Abdul AST [Catalytic activity/Vol] 25 U/L Normal 15-37 [facility] Comment on above: Performed By: #### C VDTBH #### [facility] [address] [address] [address] Grace Abdul Bilirubin [Mass/Vol] 0.6 mg/dL Normal 0.2-1.0 [facility] Comment on above: Performed By: #### C VDTBH #### [facility] [address] [address] [address] Grace Abdul Calcium [Mass/Vol] 9.4 mg/dL Normal 8.5-10.1 [facility] [facility] Comment on above: Performed By: #### C VDTBH #### [facility] [address] [address] [address] Grace Abdul Chloride [Moles/Vol] 83 mmol/L Critically low 98-107 [facility] Comment on above: Performed By: #### C VDTBH #### [facility] [address] [place] [address] Dr. Grace Abdul CO2 [Moles/Vol] 24.4 mmol/L Normal 21.0-32.0 [facility] Comment on above: Performed By: #### C VDTBH #### [facility] [address] [address] [address] Grace Abdul Creatinine [Mass/Vol] 1.15 mg/dL Critically high 0.55-1.02 [facility] Comment on above: Performed By: #### C VDTBH #### [facility] [address] [address] [address] Grace Abdul EGFR-AF ZIMBABWEAN 55 mL/min/1.73m2 Critically low >=60 [facility] Comment on above: Performed By: #### C VDTBH #### [facility] [address] [address] [address] Grace Abdul EGFR-NON AF ZIMBABWEAN 45 mL/min/1.73m2 Critically low >=60 [facility] Comment on above: Performed By: #### C VDTBH #### [facility] [address] [address] [address] Grace Abdul Globulin (S) [Mass/Vol] 3.4 g/dL Normal [facility] Comment on above: Performed By: #### C VDTBH #### [facility] [address] [place] [address] Dr. Grace Abdul Glucose [Mass/Vol] 147 mg/dL Critically high 74-106 T [facility] Comment on above: Performed By: #### C VDTBH #### [facility] [address] [place] [address] Dr. Grace Abdul Potassium [Moles/Vol] 3.2 mmol/L Critically low 3.5-5.1 [facility] Comment on above: Performed By: #### C VDTBH #### [facility] [address] [place] [address] Dr. Grace Abdul Protein [Mass/Vol] 7.5 g/dL Normal 6.4-8.2 [facility] Comment on above: Performed By: #### C VDTBH #### [facility] [address] [place] [address] Dr. Grace Abdul Urea nitrogen/Creatinine [Mass ratio] 21.7 mg/mg Normal [facility] Comment on above: Performed By: #### C VDTBH #### [facility] [address] [place] [address] Dr. Grace Abdul PROF CHEM 8 (BAS METB)on Anion gap [Moles/Vol] 13.6 mmol/L Normal [facility] Comment on above: Performed By: #### C VDTBH #### [facility] [address] [place] [address] Dr. Grace Abdul Calcium [Mass/Vol] 8.8 mg/dL Normal 8.5-10.1 [facility] Comment on above: Performed By: #### C VDTBH #### [facility] [address] [place] [address] Dr. Grace Abdul Chloride [Moles/Vol] 88 mmol/L Critically low 98-107 [facility] Comment on above: Performed By: #### C VDTBH #### [facility] [address] [place] [address] Dr. Grace Abdul CO2 [Moles/Vol] 21.8 mmol/L Normal 21.0-32.0 [facility] Comment on above: Performed By: #### C VDTBH #### [facility] [address] [place] [address] Dr. Grace Abdul Creatinine [Mass/Vol] 1.11 mg/dL Critically high 0.55-1.02 [facility] Comment on above: Performed By: #### C VDTBH #### [facility] [address] [place] [address] Dr. Grace Abdul EGFR-AF ZIMBABWEAN 57 mL/min/1.73m2 Critically low >=60 [facility] Comment on above: Performed By: #### C VDTBH #### [facility] [address] [place] [address] Dr. Grace Abdul EGFR-NON AF ZIMBABWEAN 47 mL/min/1.73m2 Critically low >=60 [facility] Comment on above: Performed By: #### C VDTBH #### [facility] [address] [place] [address] Dr. Grace Abdul Glucose [Mass/Vol] 132 mg/dL Critically high 74-106 T [facility] Comment on above: Performed By: #### C VDTBH #### [facility] [address] [place] [address] Dr. Grace Abdul Potassium [Moles/Vol] 3.4 mmol/L Critically low 3.5-5.1 [facility] Comment on above: Performed By: #### C VDTBH #### [facility] [address] [place] [address] Dr. Grace Abdul Sodium [Moles/Vol] 120 mmol/L Critically low 136-145 Th [facility] Comment on above: Result Comment: Test Repeated. Critical Value Verified Performed By: #### C VDTBH #### [facility] [address] [place] [address] Dr. Grace Abdul Urea nitrogen [Mass/Vol] 25.0 mg/dL Critically high 7.0-18.0 [facility] Comment on above: Performed By: #### C VDTBH #### [facility] [address] [address] [address] Grace Abdul Urea nitrogen/Creatinine [Mass ratio] 22.5 mg/mg Normal [facility] Comment on above: Performed By: #### C VDTBH #### [facility] [id number] Grace Abdul PROTIMEon 11-15-2021 INR Coag (PPP) [Relative time] 0.94 {INR} Normal [facility] Comment on above: Performed By: #### C VDTBH #### [facility] [address] [place] [address] Dr. Grace Abdul INR GUIDELINES SEE BELOW Normal [facility] Comment on above: Result Comment: DURAN RED INR: 2.0 - 3.0 CONDITIONS NOT LISTED BELOW 2.5 - 3.5 FOR PROSTHETIC HEART VALVE REPLACEMENT 2.5 - 3.5 RECURRENT THROMBOSIS Performed By: #### C VDTBH #### [facility] [address] [place] [address] Dr. Grace Abdul PT Coag (PPP) [Time] 10.2 s Normal 9.0-11.6 [facility] Comment on above: Performed By: #### C VDTBH #### [facility] [address] [place] [address] Dr. Grace Abdul XR ABD FLAT UP_PA [...] JARET LINARES Date: 2021-11-15 13:56 Normal [facility] BNPon 11-11-2021 Natriuretic peptide B (Bld) [Mass/Vol] 546.0 pg/mL Normal <=1,800.0 [facility] Comment on above: Performed By: #### C MP, TSH, HSTROPN, BNP ####[facility] [id number] [id number] Grace Abdul CBC AUTO DIFFon 11-11-2021 BASO # 0.0 103/ul Normal 0.0-0.1 [facility] Comment on above: Performed By: #### C BC #### [facility] [address] [address] [address] Grace Abdul Basophils/100 WBC (Bld) 0.3 % Normal 0.2-2.0 [facility] Comment on above: Performed By: #### C BC #### [facility] [address] [place] [address] Dr. Grace Abdul EO # 0.0 103/ul Normal 0.0-0.7 [facility] Comment on above: Performed By: #### C BC #### [facility] [address] [place] [address] Dr. Grace Abdul Eosinophils/100 WBC (Bld) 0.5 % Critically low 0.9-7.0 [facility] Comment on above: Performed By: #### C BC #### [facility] [address] [place] [address] Dr. Grace Abdul Erythrocyte distribution width (RBC) [Ratio] 12.9 % Normal 11.0-15.0 [facility] Comment on above: Performed By: #### C BC #### [facility] [address] [place] [address] Dr. Grace Abdul Hematocrit (Bld) [Volume fraction] 36.1 % Normal 36.0-48.0 [facility] Comment on above: Performed By: #### C BC #### [facility] [address] [place] [address] Dr. Grace Abdul Hemoglobin (Bld) [Mass/Vol] 12.3 g/dL Normal 12.0-16.0 [facility] Comment on above: Performed By: #### C BC #### [facility] [address] [place] [address] Dr. Grace Abdul IG # 0.01 10e3/ul Normal 0.00-0.03 [facility] Comment on above: Performed By: #### C BC #### [facility] [address] [place] [address] Dr. Grace Abdul IG % 0.3 % Normal 0.0-0.5 [facility] Comment on above: Performed By: #### C BC #### [facility] [address] [place] [address] Dr. Grace Abdul LYMPH # 0.6 103/ul Critically low 1.2-3.8 [facility] Comment on above: Performed By: #### C BC #### [facility] [address] [place] [address] Dr. Grace Abdul Lymphocytes/100 WBC (Bld) 14.8 % Critically low 20.5-60.0 [facility] Comment on above: Performed By: #### C BC #### [facility] [address] [place] [address] Dr. Grace Abdul MANUAL DIFF REQ NO Normal [facility] Comment on above: Performed By: #### C BC #### [facility] [address] [place] [address] Dr. Grace Abdul MCH (RBC) [Entitic mass] 31.5 pg Normal 26.7-34.0 [facility] Comment on above: Performed By: #### C BC #### [facility] [address] [place] [address] Dr. Grace Abdul MCHC (RBC) [Mass/Vol] 34.1 g/dL Normal 29.9-35.2 [facility] Comment on above: Performed By: #### C BC #### [facility] [address] [place] [address] Dr. Grace Abdul MCV (RBC) [Entitic vol] 92.6 fL Normal 81.0-99.0 [facility] Comment on above: Performed By: #### C BC #### [facility] [address] [place] [address] Dr. Grace Abdul MONO # 0.5 103/ul Normal 0.3-0.8 [facility] Comment on above: Performed By: #### C BC #### [facility] [address] [place] [address] Dr. Grace Abdul Monocytes/100 WBC (Bld) 13.5 % Critically high 1.7-12.0 [facility] Comment on above: Performed By: #### C BC #### [facility] [address] [place] [address] Dr. Grace Abdul NEUT # 2.7 103/ul Normal 1.4-6.5 [facility] Comment on above: Performed By: #### C BC #### [facility] [address] [place] [address] Dr. Grace Abdul Neutrophils/100 WBC (Bld) 70.6 % Normal 43.0-75.0 [facility] Comment on above: Performed By: #### C BC #### [facility] [address] [place] [address] Dr. Grace Abdul Platelet mean volume (Bld) [Entitic vol] 9.2 fL Critically low 9.5-13.5 [facility] Comment on above: Performed By: #### C BC #### [facility] [address] [place] [address] Dr. Grace Abdul PLT 279 103/ul Normal 150-450 [facility] Comment on above: Performed By: #### C BC #### [facility] [address] [place] [address] Dr. Grace Abdul RBC 3.90 106/ul Critically low 4.20-5.40 [facility] Comment on above: Performed By: #### C BC #### [facility] [address] [place] [address] Dr. Grace Abdul WBC 3.9 103/ul Critically low 4.0-11.0 [facility] Comment on above: Performed By: #### C BC #### [facility] [address] [place] [address] Dr. Grace Abdul PROF 14(COMP METB)on 022 Albumin [Mass/Vol] 3.3 g/dL Critically low 3.4-5.0 Th e [facility] Comment on above: Performed By: #### C MP, TSH, HSTROPN, BNP #### [facility] [address] [place] [address] Dr. Grace Abdul Albumin/Globulin [Mass ratio] 1.2 {ratio} Normal [facility] Comment on above: Performed By: #### C MP, TSH, HSTROPN, BNP #### [facility] [address] [place] [address] Dr. Grace Abdul ALP [Catalytic activity/Vol] 60 U/L Normal 46-116 [facility] Comment on above: Performed By: #### C MP, TSH, HSTROPN, BNP #### [facility] [address] [place] [address] Dr. Grace Abdul ALT [Catalytic activity/Vol] 26 U/L Normal 14-59 [facility] Comment on above: Performed By: #### C MP, TSH, HSTROPN, BNP #### [facility] [address] [place] [address] Dr. Grace Abdul Anion gap [Moles/Vol] 14.8 mmol/L Normal [facility] Comment on above: Performed By: #### C MP, TSH, HSTROPN, BNP #### [facility] [address] [place] [address] Dr. Grace Abdul AST [Catalytic activity/Vol] 20 U/L Normal 15-37 [facility] Comment on above: Performed By: #### C MP, TSH, HSTROPN, BNP #### [facility] [address] [place] [address] Dr. Grace Abdul Bilirubin [Mass/Vol] 0.3 mg/dL Normal 0.2-1.0 [facility] Comment on above: Performed By: #### C MP, TSH, HSTROPN, BNP #### [facility] [address] [place] [address] Dr. Grace Abdul Calcium [Mass/Vol] 8.2 mg/dL Critically low 8.5-10.1 Th e [facility] Comment on above: Performed By: #### C MP, TSH, HSTROPN, BNP #### [facility] [address] [place] [address] Dr. Grace Abdul Chloride [Moles/Vol] 100 mmol/L Normal 98-107 [facility] Comment on above: Performed By: #### C MP, TSH, HSTROPN, BNP #### [facility] [address] [place] [address] Dr. Grace Abdul CO2 [Moles/Vol] 23.8 mmol/L Normal 21.0-32.0 [facility] Comment on above: Performed By: #### C MP, TSH, HSTROPN, BNP #### [facility] [address] [place] [address] Dr. Grace Abdul Creatinine [Mass/Vol] 1.27 mg/dL Critically high 0.55-1.02 [facility] Comment on above: Performed By: #### C MP, TSH, HSTROPN, BNP #### [facility] [address] [place] [address] Dr. Grace Abdul EGFR-AF ZIMBABWEAN 49 mL/min/1.73m2 Critically low >=60 [facility] Comment on above: Performed By: #### C MP, TSH, HSTROPN, BNP #### [facility] [address] [place] [address] Dr. Grace Abdul EGFR-NON AF ZIMBABWEAN 40 mL/min/1.73m2 Critically low >=60 [facility] Comment on above: Performed By: #### C MP, TSH, HSTROPN, BNP #### [facility] [address] [place] [address] Dr. Grace Abdul Globulin (S) [Mass/Vol] 2.7 g/dL Normal [facility] Comment on above: Performed By: #### C MP, TSH, HSTROPN, BNP #### [facility] [address] [place] [address] Dr. Grace Abdul Glucose [Mass/Vol] 116 mg/dL Critically high 74-106 T [facility] Comment on above: Performed By: #### C MP, TSH, HSTROPN, BNP #### [facility] [address] [address] [address] Grace Abdul Potassium [Moles/Vol] 3.6 mmol/L Normal 3.5-5.1 [facility] Comment on above: Performed By: #### C MP, TSH, HSTROPN, BNP #### [facility] [address] [place] [address] Dr. Grace Abdul Protein [Mass/Vol] 6.0 g/dL Critically low 6.4-8.2 Th [facility] Comment on above: Performed By: #### C MP, TSH, HSTROPN, BNP #### [facility] [address] [place] [address] Dr. Grace Abdul Sodium [Moles/Vol] 135 mmol/L Critically low 136-145 Th [facility] Comment on above: Performed By: #### C MP, TSH, HSTROPN, BNP #### [facility] [address] [place] [address] Dr. Grace Abdul Urea nitrogen [Mass/Vol] 25.0 mg/dL Critically high 7.0-18.0 [facility] Comment on above: Performed By: #### C MP, TSH, HSTROPN, BNP #### [facility] [address] [place] [address] Dr. Grace Abdul Urea nitrogen/Creatinine [Mass ratio] 19.7 mg/mg Normal [facility] Comment on above: Performed By: #### C MP, TSH, HSTROPN, BNP #### [facility] [address] [place] [address] Dr. Grace Abdul PROTIMEon 11-11-2021 INR Coag (PPP) [Relative time] 0.95 {INR} Normal [facility] Comment on above: Performed By: #### B MP #### [facility] [address] [place] [address] Dr. Grace Abdul INR GUIDELINES SEE BELOW Normal [facility] Comment on above: Result Comment: DURAN RED INR: 2.0 - 3.0 CONDITIONS NOT LISTED BELOW 2.5 - 3.5 FOR PROSTHETIC HEART VALVE REPLACEMENT 2.5 - 3.5 RECURRENT THROMBOSIS Performed By: #### B MP #### [facility] [address] [address] [address] Grace Abdul PT Coag (PPP) [Time] 10.3 s Normal 9.0-11.6 [facility] Comment on above: Performed By: #### B MP #### [facility] [id number] Grace Abdul PTTon 11-11-2021 aPTT Coag (Bld) [Time] 21.3 s Critically low 22.3-36.2 [facility] Comment on above: Performed By: #### B MP #### [facility] [address] [address] [address] Grace Abdul TROPONIN, HIGH SENSITIVITYon 11-11-2021 HSTROP 6.5 pg/mL Normal 4.0-51.3 [facility] Comment on above: Result Comment: CUT- OFF POINTS HAVE BEEN ESTABLISHED BASED ON THE FOURTH UNIVERSAL DEFINITIONS OF MYOCARDIAL INFARCTION. THE UPPER REFERENCE LIMIT (URL) OF TROPONIN, DEFINED THE 99TH PERCENTILE OF cTnI DISTRIBUTION IN A REFERENCE POPULATION, HAS BEEN CONFIRMED THE DECISION THRESHOLD FOR PR DIAGNOSIS. Performed By: #### C MP, TSH, HSTROPN, BNP #### [facility] [id number] Grace Abdul TSHon 11-11-2021 TSH 2.140 uIU/mL Normal 0.358-3.740 [facility] Comment on above: Performed By: #### C MP, TSH, HSTROPN, BNP ####[facility] [address] [place], [place] [id number]. Grace Abdul XR CHEST 1 Von 11-11-2021 [...] KRANTHI CONNORS Date: 2021-11-11 13:34 Normal [facility] CARDIAC JOVITA ADMITon 022 CK [Catalytic activity/Vol] 89 U/L Normal 26-192 [facility] Comment on above: Performed By: #### C VDTBH #### [facility] [address] [place] [address] Dr. Grace Abdul CK.MB [Mass/Vol] 1.92 ng/mL Normal <=3.60 [facility] Comment on above: Performed By: #### C VDTBH #### [facility] [address] [place] [address] Dr. Grace Abdul HSTROP 5.7 pg/mL Normal 4.0-51.3 [facility] Comment on above: Result Comment: CUT- OFF POINTS HAVE BEEN ESTABLISHED BASED ON THE FOURTH UNIVERSAL DEFINITIONS OF MYOCARDIAL INFARCTION. THE UPPER REFERENCE LIMIT (URL) OF TROPONIN, DEFINED THE 99TH PERCENTILE OF cTnI DISTRIBUTION IN A REFERENCE POPULATION, HAS BEEN CONFIRMED THE DECISION THRESHOLD FOR PR DIAGNOSIS. Performed By: #### C VDTBH #### [facility] [address] [place] [address] Dr. Grace Abdul JOHNNA 86 ng/mL Critically high 9-82 [facility] Comment on above: Performed By: #### C VDTBH #### [facility] [address] [place] [address] Dr. Grace Abdul CBC AUTO DIFFon 09-13-2021 BASO # 0.0 103/ul Normal 0.0-0.1 [facility] Comment on above: Performed By: #### C VDTBH #### [facility] [address] [place] [address] Dr. Grace Abdul Basophils/100 WBC (Bld) 0.5 % Normal 0.2-2.0 [facility] Comment on above: Performed By: #### C VDTBH #### [facility] [address] [place] [address] Dr. Grace Abdul EO # 0.0 103/ul Normal 0.0-0.7 [facility] Comment on above: Performed By: #### C VDTBH #### [facility] [address] [place] [address] Dr. Grace Abdul Eosinophils/100 WBC (Bld) 0.7 % Critically low 0.9-7.0 [facility] Comment on above: Performed By: #### C VDTBH #### [facility] [address] [place] [address] Dr. Grace Abdul Erythrocyte distribution width (RBC) [Ratio] 13.2 % Normal 11.0-15.0 [facility] Comment on above: Performed By: #### C VDTBH #### [facility] [address] [place] [address] Dr. Grace Abdul Hematocrit (Bld) [Volume fraction] 34.8 % Critically low 36.0-48.0 [facility] Comment on above: Performed By: #### C VDTBH #### [facility] [address] [place] [address] Dr. Grace Abdul Hemoglobin (Bld) [Mass/Vol] 11.9 g/dL Critically low 12.0-16.0 [facility] Comment on above: Performed By: #### C VDTBH #### [facility] [address] [place] [address] Dr. Grace Abdul IG # 0.01 10e3/ul Normal 0.00-0.03 [facility] Comment on above: Performed By: #### C VDTBH #### [facility] [address] [place] [address] Dr. Grace Abdul IG % 0.2 % Normal 0.0-0.5 [facility] Comment on above: Performed By: #### C VDTBH #### [facility] [address] [place] [address] Dr. Grace Abdul LYMPH # 0.6 103/ul Critically low 1.2-3.8 [facility] Comment on above: Performed By: #### C VDTBH #### [facility] [address] [place] [address] Dr. Grace Abdul Lymphocytes/100 WBC (Bld) 14.2 % Critically low 20.5-60.0 [facility] Comment on above: Performed By: #### C VDTBH #### [facility] [address] [place] [address] Dr. Grace Abdul MANUAL DIFF REQ NO Normal [facility] Comment on above: Performed By: #### C VDTBH #### [facility] [address] [place] [address] Dr. Grace Abdul MCH (RBC) [Entitic mass] 31.5 pg Normal 26.7-34.0 [facility] Comment on above: Performed By: #### C VDTBH #### [facility] [address] [place] [address] Dr. Grace Abdul MCHC (RBC) [Mass/Vol] 34.2 g/dL Normal 29.9-35.2 [facility] Comment on above: Performed By: #### C VDTBH #### [facility] [address] [place] [address] Dr. Grace Abdul MCV (RBC) [Entitic vol] 92.1 fL Normal 81.0-99.0 [facility] Comment on above: Performed By: #### C VDTBH #### [facility] [address] [place] [address] Dr. Grace Abdul MONO # 0.7 103/ul Normal 0.3-0.8 [facility] Comment on above: Performed By: #### C VDTBH #### [facility] [address] [place] [address] Dr. Grace Abdul Monocytes/100 WBC (Bld) 15.6 % Critically high 1.7-12.0 [facility] Comment on above: Performed By: #### C VDTBH #### [facility] [address] [place] [address] Dr. Grace Abdul NEUT # 3.0 103/ul Normal 1.4-6.5 [facility] Comment on above: Performed By: #### C VDTBH #### [facility] [address] [address] [address] Grace Abdul Neutrophils/100 WBC (Bld) 68.8 % Normal 43.0-75.0 [facility] Comment on above: Performed By: #### C VDTBH #### [facility] [address] [address] [address] Grace Abdul Platelet mean volume (Bld) [Entitic vol] 9.5 fL Normal 9.5-13.5 [facility] Comment on above: Performed By: #### C VDTBH #### [facility] [address] [address] [address] Grace Abdul PLT 303 103/ul Normal 150-450 [facility] Comment on above: Performed By: #### C VDTBH #### [facility] [address] [place] [address] Dr. Grace Abdul RBC 3.78 106/ul Critically low 4.20-5.40 [facility] Comment on above: Performed By: #### C VDTBH #### [facility] [address] [place] [address] Dr. Grace Abdul WBC 4.4 103/ul Normal 4.0-11.0 [facility] Comment on above: Performed By: #### C VDTBH #### [facility] [address] [place] [address] HEAD WO CONon [...] KRANTHI CONNORS Date: 2021-09-13 13:24 Normal [facility] Covid-19 PCR (CVDTB)on 08-22 SARS-CoV-2 (COVID-19) RNA LUISITO+probe Ql (Unsp spec) Not detected Normal NOT DETECTED [facility] Comment on above: Result Comment: When [...] for this test is supported by the [employer] of Health and Human Service's declaration that [...] used). Performed By: #### C VDTBH #### [facility] [address] [place] [address] Dr. Grace Abdul ER URINE PROFILEon 2 Bilirubin Ql (U) Negative Normal NEGATIVE [facility] Comment on above: Performed By: #### B MP #### [facility] [address] [place] [address] Dr. Grace Abdul Clarity (U) CLEAR Normal CLEAR [facility] Comment on above: Performed By: #### B MP #### [facility] [address] [place] [address] Dr. Grace Abdul Color (U) LT. YELLOW Normal YELLOW [facility] Comment on above: Performed By: #### B MP #### [facility] [address] [place] [address] Dr. Grace Abdul ERUAHD A micrscopic examination will be performed if indicated. Normal [facility] Comment on above: Performed By: #### B MP #### [facility] [address] [address] [address] Grace Abdul Glucose Ql (U) Negative Normal NEGATIVE [facility] Comment on above: Performed By: #### B MP #### [facility] [address] [address] [address] Grace Abdul Hemoglobin Ql (U) Negative Normal NEGATIVE [facility] Comment on above: Performed By: #### B MP #### [facility] [address] [address] [address] Grace Abdul Ketones Ql (U) TRACE Abnormal NEGATIVE [facility] Comment on above: Performed By: #### B MP #### [facility] [address] [place] [address] Dr. Grace Abdul LEUKOCYTES TRACE Abnormal NEGATIVE [facility] Comment on above: Performed By: #### B MP #### [facility] [address] [place] [address] Dr. Grace Abdul Nitrite Ql (U) Negative Normal NEGATIVE [facility] Comment on above: Performed By: #### B MP #### [facility] [address] [place] [address] Dr. Grace Abdul pH (U) 8.0 [pH] Normal 5-9 [facility] Comment on above: Performed By: #### B MP #### [facility] [address] [place] [address] Dr. Grace Abdul SPEC GRAVITY 1.015 Normal 1.005-<=1.025 [facility] Comment on above: Performed By: #### B MP #### [facility] [address] [address] [address] Grace Abdul UA PROTEIN Negative Normal NEGATIVE/ TRACE [facility] Comment on above: Performed By: #### B MP #### [facility] [address] [place] [address] Dr. Grace Abdul UR MICRO IND INDICATED Normal [facility] Comment on above: Performed By: #### B MP #### [facility] [address] [place] [address] Dr. Grace Abdul Urobilinogen Qn (U) 0.2 {Ashley'U}/dL Normal 0.2 - 1. 0 [facility] Comment on above: Performed By: #### B #### [facility] [address] [place] [address] Dr. Grace Abdul PROF 14(COMP METB)on 022 Albumin [Mass/Vol] 3.8 g/dL Normal 3.4-5.0 [facility] Comment on above: Performed By: #### C VDTBH #### [facility] [address] [place] [address] Dr. Grace Abdul Albumin/Globulin [Mass ratio] 1.4 {ratio} Normal [facility] Comment on above: Performed By: #### C VDTBH #### [facility] [address] [place] [address] Dr. Grace Abdul ALP [Catalytic activity/Vol] 53 U/L Normal 46-116 [facility] Comment on above: Performed By: #### C VDTBH #### [facility] [address] [place] [address] Dr. Grace Abdul ALT [Catalytic activity/Vol] 20 U/L Normal 14-59 [facility] Comment on above: Performed By: #### C VDTBH #### [facility] [address] [place] [address] Dr. Grace Abdul Anion gap [Moles/Vol] 12.0 mmol/L Normal [facility] Comment on above: Performed By: #### C VDTBH #### [facility] [address] [place] [address] Dr. Grace Abdul AST [Catalytic activity/Vol] 18 U/L Normal 15-37 [facility] Comment on above: Performed By: #### C VDTBH #### [facility] [address] [place] [address] Dr. Grace Abdul Bilirubin [Mass/Vol] 0.4 mg/dL Normal 0.2-1.0 [facility] Comment on above: Performed By: #### C VDTBH #### [facility] [address] [address] [address] Grace Abdul Calcium [Mass/Vol] 9.5 mg/dL Normal 8.5-10.1 [facility] Comment on above: Performed By: #### C VDTBH #### [facility] [address] [address] [address] Grace Abdul Chloride [Moles/Vol] 99 mmol/L Normal 98-107 [facility] Comment on above: Performed By: #### C VDTBH #### [facility] [address] [address] [address] Grace Abdul CO2 [Moles/Vol] 28.1 mmol/L Normal 21.0-32.0 [facility] Comment on above: Performed By: #### C VDTBH #### [facility] [address] [place] [address] Dr. Grace Abdul Creatinine [Mass/Vol] 1.25 mg/dL Critically high 0.55-1.02 [facility] Comment on above: Performed By: #### C VDTBH #### [facility] [address] [address] [address] Grace Abdul EGFR-AF ZIMBABWEAN 50 mL/min/1.73m2 Critically low >=60 [facility] Comment on above: Performed By: #### C VDTBH #### [facility] [address] [address] [address] Grace Abdul EGFR-NON AF ZIMBABWEAN 41 mL/min/1.73m2 Critically low >=60 [facility] Comment on above: Performed By: #### C VDTBH #### [facility] [address] [address] [address] Grace Abdul Globulin (S) [Mass/Vol] 2.7 g/dL Normal [facility] Comment on above: Performed By: #### C VDTBH #### [facility] [address] [address] [address] Grace Abdul Glucose [Mass/Vol] 131 mg/dL Critically high 74-106 T [facility] Comment on above: Performed By: #### C VDTBH #### [facility] [address] [place] [address] Dr. Grace Abdul Potassium [Moles/Vol] 4.1 mmol/L Normal 3.5-5.1 [facility] Comment on above: Performed By: #### C VDTBH #### [facility] [address] [place] [address] Dr. Grace Abdul Protein [Mass/Vol] 6.5 g/dL Normal 6.4-8.2 [facility] Comment on above: Performed By: #### C VDTBH #### [facility] [address] [place] [address] Dr. Grace Abdul Sodium [Moles/Vol] 135 mmol/L Critically low 136-145 [facility] Comment on above: Performed By: #### C VDTBH #### [facility] [address] [place] [address] Dr. Grace Abdul Urea nitrogen [Mass/Vol] 33.0 mg/dL Critically high 7.0-18.0 [facility] Comment on above: Performed By: #### C VDTBH #### [facility] [address] [place] [address] Dr. Grace Abdul Urea nitrogen/Creatinine [Mass ratio] 26.4 mg/mg Normal [facility] Comment on above: Performed By: #### C VDTBH #### [facility] [address] [place] [address] Dr. Grace Abdul URINE MICROSCOPIC ONLYon BACTERIA NONE SEEN Normal NONE SEEN [facility] Comment on above: Performed By: #### C BC #### [facility] [address] [place] [address] Dr. Grace Abdul Bacteria identified Cx Nom (U) NOT INDICATED Normal [facility] Comment on above: Performed By: #### C BC #### [facility] [address] [place] [address] Dr. Grace Abdul CAST NONE SEEN Normal NONE SEEN [facility] Comment on above: Performed By: #### C BC #### [facility] [address] [address] [address] Grace Abdul Crystals LM Nom (Urine sed) NONE SEEN Normal NONE SEEN [facility] Comment on above: Performed By: #### C BC #### [facility] [address] [place] [address] Dr. Grace Abdul Epithelial cells LM Ql (Urine sed) FEW Abnormal NONE SEEN /RARE [facility] Comment on above: Performed By: #### C BC #### [facility] [address] [place] [address] Dr. Grace Abdul MUCOUS NONE SEEN Normal NONE SEEN [facility] Comment on above: Performed By: #### C BC #### [facility] [address] [place] [address] Dr. Grace Abdul RBC 0-2 Normal 0-2 [facility] Comment on above: Performed By: #### C BC #### [facility] [address] [place] [address] Dr. Grace Abdul WBC 0-2 Abnormal NONE SEEN [facility] Comment on above: Performed By: #### C BC #### [facility] [address] [place] [address] Dr. Grace Abdul XR CHEST 1 Von [...] KRANTHI CONNORS Date: 2021-09-13 13:19 Normal [facility] CERV SP W/OBLS/FLEX/EXT 6 OR >on 12-12-2020 CERV SP W/OBLS/FLEX/EXT 6 OR > STUDY: CERV SP W/OBLS/FLEX/EXT 6 OR >; 12/12/2020 9:40 am INDICATION: NECK PAIN. COMPARISON: None. ACCESSION NUMBER(S): [id number] ORDERING CLINICIAN: Aiden Younger TECHNIQUE: AP, lateral, [...] findings. Dense left carotid artery calcifications. Normal [facility] Vital Signs Date Time Vital Sign Value Performing Clinician Aimee pollock 09-21-2022 12:51-0400 Diastolic blood pressure 60 mm[Hg] Carolyn Vanegas MD Work Phone: [facility] 09-21-2022 12:51-0400 Heart rate 67 /min Carolyn Vanegas MD Work Phone: [facility] 09-21-2022 12:51-0400 Systolic blood pressure 153 mm[Hg] Carolyn Vanegas MD Work Phone: [facility] 05-14-2022 14:24-0400 Diastolic blood pressure 87 mm[Hg] Marty Dozier DO Work Phone: [facility] 05-14-2022 14:24-0400 Heart rate 72 /min Marty Dozier DO Work Phone: [facility] 05-14-2022 14:24-0400 Systolic blood pressure 158 mm[Hg] Marty Dozier DO Work Phone: [facility] 05-14-2022 14:22-0400 Body height 152.4 cm Marty Dozier DO Work Phone: [facility] 05-14-2022 14:22-0400 Body weight 76.39 kg Marty Dozier DO Work Phone: [facility] 05-14-2022 14: SaO2% (BldA) [Mass fraction] 99 % Marty Dozier DO Work Phone: [facility] Encounters Encounter Date Encounter Type Care Provider Facility Start: 09-26-2023 End: 09-26-2023 ambulatory Lyn Quiñones MD [facility]: [facility] Start: 09-12-2023 End: 09-12-2023 ambulatory Lyn Quiñones MD Facility: [facility] Start: 08-18-2023 End: 08-18-2023 ambulatory Galina Rogers Facility:[facility] Start: 08-08-2023 End: 08-08-2023 ambulatory COLETTE [...] Start: 09-21-2022 End: 09-21-2022 ambulatory GALINA ROGERS Facility:[facility] Start: 09-21-2022 End: 09-21-2022 Patient encounter procedure [...] Start: 05-14-2022 End: 05-14-2022 ambulatory MARTY DOZIER Facility:[facility] Start: 05-14-2022 End: 05-14-2022 Patient encounter procedure [...] SEQUEIRA . Facility:[facility] Start: 12-25-[address] GAILNA ROGERS . Facili ty:[facility] Start: 12-11-2021 End: [...] 09-12-2017 End: 09-13-2017 Patient encounter DEFAULT PHYSICIAN Facility:[facility] Plan of Treatment Date Care Activity Detail Author Start: 10-22-2022 Influenza vaccination INFLUENZA (#1) [facility] Start: 04-11-2022 COVID-19 VACCINE (6 - Moderna series) COVID-19 VACCINE (6 - Moderna series) [facility] Start: 02-21-2022 ADVANCE DIRECTIVE DISCUSSION ADVANCE DIRECTIVE DISCUSSION [facility] Start: 02-21-2022 DEPRESSION ASSESSMENT DEPRESSION ASS ESSMENT [facility] Start: 11-12-2017 PNEUMOCOCCAL: 65+ (2 - PPSV23 if available, else PCV20) PNEUMOCOCCAL: 65+ (2 - PPSV23 if available, else PCV20) [facility] Start: 11-12-2017 PNEUMOCOCCAL: 65+ (2 - PPSV23 or PCV20) PNEUMOCOCCAL: 65+ (2 - PPSV23 or PCV20) [facility] Start: 07-22-2017 SHINGRIX VACCINE (2 of 3) MANLEY GRIX VACCINE (2 of 3) [facility] Start: 04-30-2004 BONE DENSITY BONE DENSITY [facility] Start: 04-30-1984 DIABETES SCREEN DIABETES SCREEN [facility] Start: 04-30-1958 Urine microalbumin profile DTAP,TDAP ,TD (1 - Tdap) [facility] Immunizations Immunization Date Immunization Notes Care Provider Fa cility 12-02-2021 Influenza, injectabl e, Madin [place] Canine Kidney, preservative free, quadrivalent Marty Mendis DO Work Phone: [facility] 11-28-2020 influenza virus vacc ine, unspecified formulation Marty Mendis DO Work Phone: [facility] 11-29-2019 Seasonal trivalent influenza vaccine, adjuvanted, preservative free Marty Guillaumeis DO Work Phone: [facility] 05-27-2017 zoster vaccine, live Marty Dozier DO Work Phone: [facility] 11-12-2016 pneumococcal conjuga te vaccine, 13 valent Marty Mendis DO Work Phone: [facility] Payers Date Payer Category Payer Private Health Insurance [facility] AAR SUPPLEMENT [id number] 2022-Present [phone] [address] [place] [address] Indemnity [id number] 2004 Medicare [id number] 2004 Unknown 1959 Medicare [id number] 1959 Self-pay 1959 Unknown [id number] 1939 Unknown [id number] 2.16.840.1.633039.3.579.2 .593 1939 Unknown [id number] 2.16.840.1.322657.3.579.2 .593 1939 Unknown [id number] 2.16.840.1.620245.3.579.2 .593 1939 Unknown [id number] 2.16.840.1.388442.3.579.2 .593 1939 Unknown [id number] 2.16.840.1.047959.3.579.2 .593 1939 Unknown [id number] 2.16.840.1.740873.3.579.2 .593 1939 Unknown [id number] 2.16.840.1.230494.3.579.2 .593 1939 Unknown [id number] 2.16.840.1.354630.3.579.2 .593 1939 Unknown [id number] 2.16.840.1.226823.3.579.2 .593 1939 Unknown [id number] 2.16.840.1.627070.3.579.2 .593 1939 Unknown [id number] 2.16.840.1.126359.3.579.2 .593 1939 Unknown [id number] 2.16.840.1.998159.3.579.2 .593 1939 Unknown [id number] 2.16.840.1.450381.3.579.2 .593 1939 Unknown [id number] 2.16.840.1.119769.3.579.2 .593 1939 Unknown [id number] 2.16.840.1.735190.3.579.2 .593 1939 Unknown [id number] 2.16.840.1.907780.3.579.2 .593 1939 Unknown [id number] 2.16.840.1.766507.3.579.2 .593 1939 Unknown [id number] 2.16.840.1.138965.3.579.2 .593 1939 Unknown [id number] 2.16.840.1.599331.3.579.2 .593 1939 Unknown [id number] 2.16.840.1.952922.3.579.2 .593 1939 Unknown [id number] 2.16.840.1.507708.3.579.2 .593 1939 Unknown [id number] 2.16.840.1.343675.3.579.2 .593 1939 Unknown [id number] 2.16.840.1.150043.3.579.2 .593 1939 Unknown [id number] 2.16.840.1.985924.3.579.2 .593 1939 Unknown [id number] 2.16.840.1.962806.3.579.2 .593 1939 Unknown [id number] 2.16.840.1.087818.3.579.2 .1259 1939 Unknown [id number] 2.16.840.1.202382.3.579.2 .1259 1939 Unknown [id number] 2.16.840.1.318628.3.579.2 .196 1939 Unknown [id number] 2.16.840.1.742008.3.579.2 .196 1939 Unknown [id number] 2.16.840.1.717923.3.579.2 .196 1939 Unknown [id number] 2.16.840.1.741676.3.579.2 .196 1939 Unknown [id number] 2.16.840.1.914417.3.579.2 .196 1939 Unknown [id number] 2.16.840.1.136839.3.579.2 .196 1939 Unknown [id number] 2.16.840.1.512748.3.579.2 .196 1939 Unknown [id number] 2.16.840.1.019923.3.579.2 .196 Social History Date Type Detail Facility Start: 05-14-2022 Tobacco smoking stat us NHIS Never smoked tobacco [facility] Start: 05-14-2022 Tobacco use and exposure Smoke less tobacco non-user [facility] Start: 05-14-2022 End: 09-21-2022 Alcohol intake Lifetime non-drinker (finding) [facility] Start: 1940 Sex Assigned At Not on file [facility] Start: 05-09-2022 End: 09-21-2022 History of Social function [facility] Start: 05-09-2022 End: 09-21-2022 Tobacco use panel [facility] Adult Depression Scr eening Assessment 2 [facility] Clinical Notes 09-30-2021 to 09-21-2022 Patient InstructionsCarolyn Vanegas MD - 09/21/2022 12:43 PM Naa Alves PA-C - 08/26/2022 11:45 AM EDTTmonika Bowman - 08/19/2022 4:06 PM EDT Note Date & Type Note Facility 09-21-2022 Note HNO ID: [id number] Author: Carolyn Vanegas MD Service: ? Author [...] Health Percentile 1 (more content not included)... [facility] 09-21-2022 Instructions Carolyn Vanegas MD - [...] at this time. documented in this encounter [facility] 09-21-2022 History of Present illness Narrative SPINE [...] 4 - Moderate documented in this encounter [facility] 08-26-2022 Note HNO ID: [id number] Author: Kassandra Alves PA-C Service: ? Author Type: Physician Geospatial Extractor Analysis Type: Progress Notes Filed: 08/26/2022 11:52 AM Note Text: Per Triage: Alexa Delgado is a 82 year old female that requests evaluation of spine. Per review, they have symptoms of lower back pain. Numbness/tingling right leg. Difficulty walking. Weakness Request: 1st available Referring provider: Galina Rogers MD Patient out of state: no 2nd opinion: no Prior spine surgery: yes 2006 [facility] Address: [address] [place] [address] CMT: PT Injections Tylenol Hydrocodone Studies (Reports [...] reviewed during the appt Kassandra Alves PA-C [facility] 08-26-2022 History of Present illness Narrative Per Triage: Alexa Delgado is a 82 year old female that requests evaluation of spine. Per review, they have symptoms of lower back pain. Numbness/tingling right leg. Difficulty walking. Weakness Request: 1st available Referring provider: Galina Rogers MD Patient out of state: no 2nd opinion: no Prior spine surgery: yes 2006 [facility] Address: [address] [place] [address] CMT: PT Injections Tylenol Hydrocodone Studies (Reports [...] Health Provider or Pain Management Provider at [facility]? No If answer is YES [...] facility where the MRI/CT/myelogram was completed: [facility] Address: [address] [place] [address] MRI/CT/myelogram viewable in Epic: No If not, please provide [phone] to fax in imaging reports for review. [...] physical therapy was completed PT Injection [facility] Address: [address] [place] [address] Have you tried any other kinds of [...] where the surgery was completed: 2006 [facility] Address: [address] [place] [address] Additional Comments documented in this encounter [facility] 08-19-2022 Note HNO ID: [id number] Author: Micheal Bowman Service: ? Author Type: ? Type: Progress Notes Filed: 08/26/2022 11:52 AM Note Text: Patient name: Alexa Delgado Are you being referred by a [facility] Spine Health Provider or Pain Management Provider at [facility]? No If answer is YES [...] facility where the MRI/CT/myelogram was completed: [facility] Address: [address] [place] [address] MRI/CT/myelogram viewable in Epic: No If not, please provide [phone] to fax in imaging reports for review. [...] and/or physical therapy was completed PT Injection [facility] Address: [address] [place] [address] Have you tried any other kinds of [...] of where the surgery was completed: 2006 [facility] Address: [address] [place] [address] Additional Comments [facility] 07-16-2022 Note PROCEDURE: XR HIP RT [...] authenticated by: HERMES MENDOZA Date: 2022-07-16 11:28 [facility] 05-14-2022 Note HNO ID: [id number] Author: Marty Dozier, DO Service: ? Author Type: Physician Type: Progress Notes Filed: 05/15/2022 10:02 PM Note Text: [facility] [place] [facility] - Medical Spine Initial [...] Ratio: R>L low back Current Treatment: Medications [place] 5-325 mg BID - helps Diclofenac 75 [...] but still has pain -01/28/22 Noemi Sequeira AERONAUTICAL ENGINEER: BL Lumbar erector spinae TPI (0.125% [...] ongoing as of 04/17/21 -03/08/21 Noemi Sequeira AERONAUTICAL ENGINEER: Left rhomboid TPI (0.125% Marcaine, 40 mg Kenalog) -02/03/21 LESI - moderate relief for 4 days Prior spine surgery: -2006 L4-5 Discectomy Previously treated by: -[facility], previously Dr. Niko [...] today. She has an evaluation at the [facility] tomorrow at the Spine Center. RECOMMENDATIONS: We will see the patient back in the office after she undergoes evaluation there to discuss her treatment plan thereafter. We will see the patient back in the office in approximately four weeks' time or sooner if needed. PMH: Lumbar scoliosis Depression on Negrita (more content not included)... [facility] 05-14-2022 History of Present illness Narrative Images from the original note were not included. [facility] [place] [facility] - Medical Spine Initial [...] Ratio: R>L low back Current Treatment: Medications [place] 5-325 mg BID - helps Diclofenac 75 [...] but still has pain -01/28/22 Noemi Sequeira AERONAUTICAL ENGINEER: BL Lumbar erector spinae TPI (0.125% [...] ongoing as of 04/17/21 -03/08/21 Noemi Sequeira AERONAUTICAL ENGINEER: Left rhomboid TPI (0.125% Marcaine, 40 mg Kenalog) -02/03/21 LESI - moderate relief for 4 days Prior spine surgery: -2006 L4-5 Discectomy Previously treated by: -[facility], previously Dr. Niko [...] today. She has an evaluation at the [facility] tomorrow at the Spine Center. RECOMMENDATIONS: We [...] reviewed 04/04/22 CT abd/pelvis with IV contrast, [facility], report: Abdominal wall: Old healed left pelvis fractures. Degenerative changes and scoliosis of the lumbar spine. IMPRESSION: No acute abdominal pathology. No acute inflammatory process. No obstructing urinary tract stone. No evidence for bowel obstruction. 11/15/21 XR abd, [facility], report: No acute osseous abnormality. There is moderate dextrocurvature of the lumbar spine. 05/08/2021 XR right hip/pelvis, [facility], report: Rotatory dextro scoliosis of the [...] TIME: 3:15 PM documented in this encounter [facility] 05-13-2022 Note CONSULTATION CONSULTATION DATE: 05/13/2022 TO: [...] mg at h.s., diclofenac 75 mg b.i.d., Rensselaer 5 mg b.i.d. EXAM: Notable for the [...] today. She has an evaluation at the [facility] RECOMMENDATIONS: We will see the patient back in the office after she undergoes evaluation there to discuss her treatment plan thereafter. We will see the patient back in the office in approximately four weeks' time or sooner if needed. [facility] 04-06-2022 Note CONSULTATION CONSULTATION DATE: 04/06/2022 [...] to kidney dysfunction also. The patient takes R[place]sel[place]er, however, is very controlled and limits it to the point of detriment. Education was done. The patient was instructed to take the R[place]sel[place]er to a b.i.d. to t.i.d. basis. The [...] b.i.d. basis. The patient may increase the Rensselaer to 5/325 t.i.d. We will schedule the [...] the procedure. CC: Galina Rogers M.D. [facility] 03-11-2022 Note CONSULTATION CONSULTATION DATE: 03/11/2022 [...] gave improvement for 24 hours. Medications include Rensselaer 5/325 b.i.d., diclofenac 75 mg b.i.d., citalopram [...] back pain. PLAN: We will refill her R[place]sel[place]er 5/325 b.i.d. We will prescribe her Buderer cream with gabapentin, ketorolac and prilocaine/lidocaine to be placed over her right knee. We will trial Requip 0.25 mg q.h.s. We will see the patient in the clinic in three months' time unless otherwise indicated. Patient agrees with the plan. [facility] 01-28-2022 Note CONSULTATION CONSULTATION DATE: 01/28/2022 [...] daily which decreases her pain. Medications include [place]er 5/325 b.i.d., Flexeril 5 mg b.i.d., diclofenac [...] does consent to. We will refill the [place] 5/325 b.i.d. We will pre-authorize for a right genicular nerve block under fluoroscopy. Patient will follow up in the clinic thereafter. [facility] 01-28-2022 Note CONSULTATION PROCEDURE DATE: 01/28/2022 [...] be followed up in the office. [facility] 12-31-2021 Note CONSULTATION CONSULTATION DATE: 12/31/2021 [...] Current medications include diclofenac 75 mg b.i.d., R[place]selaer 5/325 b.i.d., citalopram, Flexeril and multivitamin regimen. The patient does state that she breaks her R[place]er in half and the most she takes [...] and would like to move forward. [facility] 09-30-2021 Note CONSULTATION CONSULTATION DATE: 09/30/2021 This is a very -gfyp-drf female accompanied by her returning to the [...] Current medications include diclofenac 50 mg b.i.d., [place]er 5/325 b. i.d. and Tylenol. She does [...] at 25 mg q.h.s. Refill for her [place]er 5/325 b.i.d. will be sent as well. The patient is to continue with her vitamin regimen which she is currently compliant with, as well as heat application and pool exercises. The patient will be followed up in the office in three months' time unless otherwise indicated. The patient agrees with the plan of care. [facility] Evaluation note Diagnosis Chronic bilateral low back pain with right-sided sciatica- Primary Back pain, lumbosacral Lumbago Chronic sacroiliac joint pain Disorders of sacrum Lumbar spondylosis Lumbosacral spondylosis without myelopathy Scoliosis of lumbar spine, unspecified scoliosis type documented in this encounter [facility] Spinal stenosis, lumbar region with neurogenic claudication- Primary Spondylolisthesis, lumbar region Other idiopathic scoliosis, lumbar region documented [facility] Diagnosis Obesity, Class I, BMI 30-34.9- Primary Obesity, unspecified Spinal stenosis, lumbar region with neurogenic claudication documented in this encounter [facility] Summary Purpose Family History No Family History [...] By Contac t Referred To Contact [facility] Diagnoses Spinal stenosis, lumbar region with neurogenic claudication Procedures [facility]SULT TO [facility]) OFFICE/OUTPATIENT [facility] HIGH MDM 60-74 MINUTES Carolyn Vanegas MD [address] [place] [address] Referral ID Status Reason Start Date Expiration Date Visits Requested Visits Authorized [id number] Pending Review PCP Requested Referral 09/21/2022 09/21/2023 1 1 Additional Source Comments INFORMATION SOURCE (unrecogn ized section and content) DATE CREATED AUTHOR 09/13/2017 [facility] DATE CREATED AUTHOR AUTHOR'S ORGANIZ ATION 12/13/2020 [facility] DATE CREATED AUTHOR AUTHOR'S ORGANIZ ATION 07/30/2022 [facility] DATE CREATED AUTHOR AUTHOR'S ORGANIZ ATION 09/22/2022 [facility] DATE CREATED AUTHOR AUTHOR'S ORGANIZ ATION 08/13/[address] [facility] DATE CREATED AUTHOR AUTHOR'S ORGANIZ ATION 10/10/2023 [facility] DATE CREATED AUTHOR AUTHOR'S ORGANIZ ATION 10/26/2023 [facility] Source Comments (unrecognize d section and content) In the event this informatio n is protected by the Federal Confidentiality of Alcohol and Drug Abuse Patient Records regulations: The Federal rules restrict any use of the information to criminally investigate or prosecute any alcohol or drug abuse patient.[facility] the event this information is protected by the Federal Confidentiality of Alcohol and Drug Abuse Patient Records regulations: The Federal rules restrict any use of the information to criminally investigate or prosecute any alcohol or drug abuse patient.[facility] the event this information is protected by the Federal Confidentiality of Alcohol and Drug Abuse Patient Records regulations: The Federal rules restrict any use of the information to criminally investigate or prosecute any alcohol or drug abuse patient.[facility] Reason for Visit (unrecogniz ed section and content) Reason Comments New Patient Evaluation Low Back Pain Reason Comments New Patient Care Teams (unrecognized sec tion and content) Senior Data Analyst Relationship Specialty Start Date End Date Galina Rogers MD [address] [place] [phone] PCP - General Family Medicine 05/14/22 Colette De Leon Jr., DO [address] [facility] [address] [place], [place] [phone] Referring Orthopedics 05/03/22 Porsha Garcia [address] [address] Pain Management 05/14/22 Colette De Leon Jr., DO [address] [facility] [address] [place] [address] Orthopedics 05/14/22 Senior Data Analyst Relationship Specialty Start Date End Date Galina Rogers MD [address] [place] [facility] [phone] PCP - General Family Medicine 05/14/22 Colette De Leon Jr., DO [address] [place] [address] Referring Orthopedics 05/03/22 Lakshmipathy, Narendranath [address] [place] [phone] Pain Management 05/14/22 Colette De Leon Jr., DO [address] [place] [address] Orthopedics 05/14/22 Galina Rogers MD [address] [place] [facility] [address] Referring Family Medicine 08/11/22 Senior Data Analyst Relationship Specialty Start Date End Date Galina Rogers MD [address] [place] [facility] [address] PCP - General Family Medicine 05/14/22 Colette De Leon Jr., DO [address] [place] [address] Referring Orthopedics 05/03/22 Tereshmipathy, Narendranath [address] [place] [address] [place] [address], [place] [phone] Pain Management 05/14/22 Colette De Leon Jr., DO [address] [place] [address] Orthopedics 05/14/22 Galina Rogers MD [address] [place] [phone] Referring Family Medicine 08/11/22 FOR RECORDS PERTAINING [...] BE BASED ON THE PRIMARY CLINICAL RECORDS. [facility]. provides no warranty or guarantee of the accuracy or completeness of information in this document.
== END 2023-12-02 10:56 | disposition home or self-care (01) ==
LOC: MAMMO 10:55
PROVIDERS: PCP Family Medicine; Visit Provider Family Medicine
DX: Z12.31 Encounter for screening mammogram for malignant neoplasm of breast (principal)
CPT/HCPCS: 77067

== ENCOUNTER 2024-01-04 14:19 | Outpatient (REF) | payer MEDICARE, SELFPAY ==
--- OUTSIDE RECORDS SUMMARY | 2024-01-04 14:39 | XMS_ITS | CCD ---
Author Organization [facility] CliniSyga Care Team Providers Care Broom Machine Operator Name Role Phone PHYSICIAN, DEFAULT Unavailable Unavailable PHYSICIAN, DEFAULT Unavailable Unavailable Haley Matos DO, George Cajetan Unavailable Galina Rogers MD Primary Care Provider Lakshmipathy, Narendranath Unavailable [phone] Haley Matos DO, George Cajetan Unavailable ESTELA ., DR MOJICA Primary Care Unavailable HOY ., DR MOJICA Attending Unavailable HOY ., DR MOJICA Consulting Unavailable HOY ., DR MOJICA Admitting Unavailable LAKSHMIPATHY ., PORSHA Consulting Laura vailable LAKSHMIPATHY ., NARDALLASATH Admitting [...] REJI, DR HERMES Jean Baptiste Consulting Unavailable HOAshlie ., DR MOJICA Primary [...] Admitting Laura vailable LAKSHMIPATHY ., NARENDRANATH Attending Luara vailable BRIDGER PAIZ Consulting Unavailable HOY ., [...] BECKWITH ., DR NIKO Austin Admitting Unavailable ESTELA ., DR MOJICA Primary Care Unavailable MELO ., ROGE Admitting Unavailable MELO ., ROGE Attending Unavailable ESTELA ., DR MOJICA Primary Care Unavailable DROY, DR KRANTHI Gaona Consulting Unavailable MELO ., ROGE Consulting Unavailable FAWWAD, SEGURA H Admitting Unavailable FASHAIKH HUGO H Attending Unavailable ESTELA ., DR MOJICA Primary Care Unavailable SAMSA ., BALTAZAR Consulting Unavailable MELO ., ROGE Consulting Unavailable FAWWAD, SEGURA H Consulting Unavailable LINARESJARET ZUÑIGA Consulting Unavailable AA, AA Consulting Unavailable ESTELA ., DR MOJICA Primary Care Unavailable ESTELA ., DR MOJICA Attending Unavailable HOY ., DR MOJICA Admitting Unavailable HOY ., DR MOJICA Primary Care Unavailable HOY ., DR MOJICA Admitting Unavailable HOAshlie ., DR MOJICA Attending Unavailable HOAshlie ., DR MOJICA Consulting Unavailable WILKINSON, DR HERMES Jean Baptiste Consulting Unavailable LATANYA ., DR NIKO Austin Attending Unavailable LATANYA ., DR NIKO Austin Admitting Unavailable ESTELLA .NOEMI Consulting Unavailable ESTELA ., DR MOJICA Primary Care Unavailable Haley Matos DO, George Cajetan Unavailable Galina Rogers MD Unavailable GALINA ROGERS Primary Care Unavailable CAROLYN VANEGAS Attending Unavailable MARTY DOZIER Attending Unavailable Giedraitis , Andrius Bryan Attending Unavailable Giedraitis , Andrius Vytautjemma Attending Unavailable Giedraitis , Andrius Vytautjemma Attending Unavailable Giedraitis , Andrius Vytautjemma Attending Unavailable Gikoriitis , Andrius Vytautas Attending Unavailable Gikoriitis , Andrius Vytautjemma Attending Unavailable Gikoriitis , Andrius Vytsonny Attending Unavailable Gimiguel MEANS, Andrius Adams Attending Unavailable Galina Rogers Attending Unavailable Galina Rogers Admitting Unavailable JR. DE LEON GEORGE C Attending Unavailvanda DE LEON JR., GEORGE C Referring ARMANDO Gotti Attending Unavailable Galina Rogers MD Primary Care Provider [phone] Allergies Allergy Classification Reported Allergen(s) Allergy Type Date of Onset Reaction(s) Facility (5 sources) Codeine; Translations: [CODEINE] Drug Allergy 09-14-19 13 Unknown [facility] (4 sources) Penicillins; Translations: [PENICILLINS] Drug Allergy 09-14-19 13 Unknown [facility] (4 sources) pregabalin; Translations: [PREGABALIN] Drug Allergy 05-15-19 23 Intolerance [facility] Work Phone: (5 sources) Propoxyphene; Translations: [PROPOXYPHENE] Drug Allergy 05-15-19 23 Rash, Unknown, GI intolerance, Headache [facility] (4 sources) quiNINE; Translations: [QUINAMM] Drug Allergy 05-15-19 23 GI Upset [facility] (5 sources) Decongest Multi-Action; Translations: [Decongest Multi-Action] Drug Allergy 05-15-19 23 Other: See Comments [facility] (1 source) Acetaminophen / HYDROcodone Drug Allergy [facility] (2 sources) Codeine Drug Allergy 09-14-19 [address] [facility] (1 source) Fluconazole Drug Allergy [facility] (2 sources) Penicillins Drug allergy (disorder) 09-14-19 [address] [facility] (1 source) pregabalin Drug Allergy [facility] (2 sources) Propoxyphene Drug Allergy [facility] (1 source) quiNINE Drug Allergy [facility] (1 source) Fluconazole Allergy to substance 12-06-19 24 Unknown [facility] (1 source) Penicillins Propensity to adverse reactions 08-03-19 23 Unknown [facility] (1 source) Pregabalin Propensity to adverse reactions 08-03-19 Dizziness [facility] (1 source) Pseudoephedrine Drug Allergy 08-03-19 23 [facility] (1 source) quiNINE Drug Allergy 08-03-19 23 GI intolerance, Headache, Dizziness [facility] Medications Current Medications Medication Drug Class(es) Dates Sig (Normalized) Sig (Original) acetaminophen 500 mg oral tablet (4 sources) acetaminophen (Tylenol) 500 MG tablet Take by mouth. Active Comment on above: Take 500 mg by mouth twice daily. acetaminophen 325 mg / HYDROcodone bitartrate 5 mg oral tablet (4 sources) Opioid Agonist Start: 04-29-2022 take 1 tablet by mouth twice daily as needed HYDROcodone-acetamin ophen (Malone) 5-325 MG tablet 1 tablet as needed Orally twice daily 04/29/2022 Active Comment on above: Take 1 tablet by juan th twice daily as needed. aspirin 81 mg delayed release oral tablet (4 sources) Platelet Aggregation Inhibitor, Nonsteroidal Anti-inflammatory Drug take 1 tablet by mouth in the morning aspirin 81 MG EC tablet Take 81 mg by mouth in the morning. Active Comment on above: Take 81 mg by mouth once daily. Calcium Carbonate / Vitamin D (1 source) Calcium Carbonate-Vitamin D (CALTRATE 600+D PO) Take by mouth twice a day. Active Ztmokke-Rwzgelr-Jkldc l Edwar (SALONPAS TD) (1 source) Camphor-Menthol- Meth yl Edwar (SALONPAS TD) Place on the skin Active cyclobenzaprine hydrochloride 5 mg oral tablet (4 sources) Muscle Relaxant cyclobenzaprine (Flexeril) 5 MG tablet Take 5 mg by mouth every 12 (twelve) hours if needed. Active take 1 tablet by juan th every twelve hours as needed cyclobenzaprine (FLEXERIL) 5 mg tablet T lola 5 mg by mouth twice daily as needed for muscle spasm. 0 Active Comment on above: Take 5 mg by mouth t wice daily as needed for muscle spasm. ferrous sulfate 325 mg oral tablet (1 source) Start: 09-16-19 take 1 tablet by mouth in the morning ferrous sulfate 325 (65 Fe) MG tablet Take 1 tablet by mouth in the morning and 1 tablet before bedtime. 09/16/2023 Active fexofenadine hydrochloride 180 mg oral tablet (5 sources) Histamine-1 Receptor Antagonist End: 12-06-19 24 fexofenadine (Benita Allergy) 180 MG tablet QAM 12/06/2023 Discontinued (Duplicate order) Comment on above: Take 180 mg by mouth once daily. Glucosamine-Chondroiti n-MSM (Triple Flex) 500-400-125 MG tablet (1 source) take 1 tablet by mouth twice daily at mealtime Glucosamine-Chondroi tin-MSM (Triple Flex) 500-400-125 MG tablet 1 tablet with meals Orally twice daily for 30 days Active 24 hr isosorbide mononitrate 30 mg extended release oral tablet (4 sources) Nitrate Vasodilator Start: 03-21-19 take 1 tablet by mouth in the morning, then take 1 tablet by mouth every twenty-four hours isosorbide mononitrate ER (Imdur) 30 MG 24 hr tablet Take 30 mg by mouth in the morning. 03/21/2022 Active Start: 03-21-2022 take 1 tablet by juan th once daily in the morning isosorbide mononitrate [...] Angina levothyroxine sodium 0.075 mg oral tablet (4 sources) l-Thyroxine Start: 03-18-2022 levothyroxine (Synthroid, Levoxyl) 75 MCG tablet 1 (one) time each day at the same time. 03/18/2022 Active Comment on above: Take 75 mcg by mouth once daily. Patient takes 1 tablet in the AM linseed oil 1000 mg oral capsule (4 sources) Flaxseed, Linsee d, (Flax Seed Oil) 1000 MG capsule as directed Orally Active Comment on above: Take 1,000 mg by juan th once daily. liothyronine sodium 0.025 mg oral tablet (4 sources) l-Triiodothyronine liothyronine (Cytomel) 25 MCG tablet 1 (one) time each day at the same time. Active Comment on above: Take 25 mcg by mouth once daily. Magnesium (1 source) MAGNESIUM PO Sung e by mouth + cheleated zinc Active melatonin 3 mg oral tablet (4 sources) melatonin 3 MG t ablet 1 (one) time each day at the same time. Active take 1 capsule by mo uth once daily at bedtime melatonin 3 mg capsules Take 3 mg by juan th daily at bedtime. 0 Active Comment on above: Take 3 mg by mouth d aily at bedtime. Multiple Vitamin (multivitamin) tablet (1 source) take 1 tablet by mouth in the morning Multiple Vitamin (multivitamin) tablet Take 1 tablet by mouth in the morning. Active nitroglycerin 0.4 mg sublingual tablet (4 sources) Nitrate Vasodilator nitroglyceri n (Nitrostat) 0.4 MG SL tablet as directed Sublingual Active take 1 tablet by juan th three times daily as needed NITROGLYCERIN ORAL Take 0.4 mg by mouth three times daily. 1 tablet by mouth 3x daily As needed for chest pain 0 Active Comment on above: Take 0.4 mg by mouth three times daily. 1 tablet by mouth 3x daily As needed for chest pain pantoprazole 40 mg delayed release oral tablet (1 source) Proton Pump Inhibitor Start: take 1 tablet by mouth once daily pantoprazole (ProtoNix) 40 MG EC tablet Take 40 mg by mouth Daily 10/13/2023 Active trolamine salicylate (1 source) Trolamine Salicy late (BLUE-EMU MAXIMUM PAIN RELIEF EX) Apply topically Active Zinc-Magnesium Aspart-Vit B6 (Zinc Magnesium Aspartate) 150-3.83-10 MG capsule (1 source) Zinc-Magnesium Aspart-Vit B6 (Zinc Magnesium Aspartate) 150-3.83-10 MG capsule 1 (one) time each day at the same time. Active Completed/Discontinued Medications Medication Drug Class(es) Dates Sig (Normalized) Sig (Original) Calcium Carbonate / vitamin D3 (3 sources) calcium carbonate/vitamin D3 (CALTRATE 600 + D ORAL) Take by mouth twice daily. 0 Active Comment on above: Take by mouth twice daily. capsaicin 0.46901 mg/mg medicated patch (3 sources) Capsaicin (SALONPAS-HOT) 0.025 % ptmd Apply to affected area. 0 Active Comment on above: Apply to affected ar ea. citalopram 10 mg oral tablet (4 sources) Serotonin Reuptake Inhibitor Start: 03-01-2022 take 1 tablet by mouth once daily citalopram hydrobromide (CELEXA) 10 mg tablet Take 10 mg by mouth once daily. Treat Depression 0 03/01/2022 Active Comment on above: Take 10 mg by mouth once daily. Treat Depression diclofenac sodium 75 mg delayed release oral tablet (4 sources) Nonsteroidal Anti-inflammatory Drug Start: 03-24-2022 take 1 tablet by mouth twice daily for pain diclofenac, EC, (VOLTAREN) 75 mg EC tablet Take 75 mg by mouth twice daily. For Arthritis pain 0 03/24/2022 Active diclofenac (Volt aren) 75 MG EC tablet every 12 (twelve) hours. Active Comment on above: Take 75 mg by mouth twice daily. For Arthritis pain glucosamine HCl/S-Adenosylmet (TRIPLE FLEX MOOD & JOINT [...] Take 25 mg by mouth once daily. magnesium amino acid chelate (3 sources) take 250 mg by mouth once daily at bedtime MAGNESIUM AMINO ACID CHELATE ORAL Take 250 mg by mouth once daily. At bedtime 0 Active Comment on above: Take 250 mg by mouth once daily. At bedtime 24 hr metoprolol succinate 50 mg extended release oral tablet (4 sources) beta-Adrenergic Moshe Start: 2022 take 1 tablet by mouth twice daily [...] mouth. Equat e with Lycopene Complete Multivitamin Problems Active Problems Problem Classification Problem Date Documented Date Episodic/Chronic Blindness and vision defects (1 source) Unspecified visual loss; Translations: [UNSPECIFIED VISUAL LOSS] Onset: 04-06-2022 Chronic Congestive heart failure; nonhypertensive (1 source) Unspecified diastolic (congestive) heart failure; Translations: [UNSPECIFIED DIASTOLIC HEART FAILURE] Onset: 12-16-2021 Chronic Disorders of lipid metabolism (1 source) Hyperlipidemia, unspecified; Translations: [HYPERLIPIDEMIA UNSPECIFIED] Onset: 12-16-2021 Chronic Essential hypertension (2 sources) Essential (primary) hypertension; Translations: [Essential hypertension] Onset: 09-12-2012 12-06-2023 Chronic Hypertension with complications and secondary hypertension (4 sources) Hypertensive heart disease with heart failure; Translations: [HTN HEART DISEASE W/HEART FAIL] Onset: 12-11-2021 Chronic Nonmalignant breast conditions (1 source) Fibrocystic disease of breast; Translations: [Diffuse cystic mastopathy of unspecified breast] Onset: 12-06-2023 12-06-2023 Chronic Nutritional deficiencies (1 source) Vitamin D deficiency, unspecified; Translations: [VITAMIN D DEFICIENCY UNSPECIFIED] Onset: 12-16-2021 Chronic Osteoarthritis (4 sources) Bilateral primary osteoarthritis of hip; Translations: [Unspecified osteoarthritis, unspecified site] Onset: 09-12-2012 12-06-2023 Chronic Other acquired deformities (2 sources) Scoliosis of lumbar spine; Translations: [Scoliosis, unspecified] Onset: 04-11-2022 Chronic Other acquired deformities (3 sources) Scoliosis [...] Translations: [Obesity, unspecified] Onset: 09-21-2022 09-21-2022 Chronic Other screening for suspected conditions (not mental disorders or infectious disease) (6 sources) Encounter for screening mammogram for malignant neoplasm of breast; Translations: [Patient encounter status] Onset: 11-25-2021 Episodic Spondylosis; intervertebral disc disorders; other back problems (19 sources) Lumbar spondylosis; Translations: [Spondylosis without myelopathy or radiculopathy, lumbar region] Onset: 10-02-2021 Chronic Thyroid disorders (3 sources) Hypothyroidism, unspecified; Translations: [...] Onset: 11-13-2021 Episodic Other aftercare (1 source) half-way (current) use of aspirin; Translations: [[employer] MEMBER CURRENT USE OF ASPIRIN] Onset: 04-06-2022 Episodic Other aftercare (1 source) Other halfway (current) drug therapy; Translations: [OTH [facility] CURRENT DRUG THERAPY] Onset: 04-06-2022 Episodic Other [...] [PAIN IN RIGHT KNEE] Onset: 02-01-2022 Episodic Residual codes; unclassified (1 source) Acquired absence of both cervix and uterus; Translations: [ACQUIRED ABSENCE BOTH CERVIX AND UTERUS] Onset: 04-06-2022 Episodic Residual codes; unclassified (1 source) Acquired absence of other specified parts of digestive tract; Translations: [ACQ ABSENCE OTH PART DIGESTV TRACT] Onset: 04-06-2022 Episodic Spondylosis; intervertebral disc disorders; other back problems (14 sources) Chronic low back pain; Translations: [Lumbago with sciatica, right side] Onset: 10-02-2021 Episodic Unclassified (1 source) LOW BACK PAIN, UNSPECIFIED; Translations: [LOW BACK PAIN, UNSPECIFIED] Onset: 04-06-2022 Results Test Name Value Interpretation Reference Range Facility [facility] 08-18-2023 L Specimen: [id number] Received: 08/22/23 Status: CECILIA Req Num: [id number] Spec Type: Impression Subm Dr: Galina Rogers MD Tissues: PATHPER Procedures: PATHREVIEW Age/ Patient Sex Location Account Attending Physician Alexa Delgado 83/F LABELL [id number] Galina Rogers MD SPEC NUM: [id number] RECD: 08/22/23 [facility] NUM: [id number] JANET: 08/18/[address]: Galina Rogers MD ENTERED: 08/22/23 [facility] DR: Annie Rivas SPEC TYPE: Impression DEPT: SHELLIE Simmons ENTERED BY: [id number] RECV BY: [id number] ORDERED: PATHREVIEW ORDERED: PATHREVIEW Pathologist Review Abnormal [...] initial report for the needed correction CPT: 44376 ---- ---- Specimen: [id number] Received: 08/22/23 Status: CECILIA Biggsjose Num: [id number] Spec Type: Impression Subm Dr: Galina Rogers MD Tissues: PATHPER Procedures: PATHREVIEW ---- Patient: Alexa Delgado [id number] (Continued) ---- Signed (signature on file) Anoop Abdul MD 08/24/23918 Normal The Count Includes [facility] CNOVon 09-21-2022 CNOV Office Visit ([facility]ADHC ) ALEXA DELGADO ([id number]) 1940 F Date Time Provider Department 09/21/22 1:00 PM CAROLYN VANEGAS [facility] During your visit today, we recorded [...] 1,000 mg by mouth once daily. fexofenadine (BENITA ALLERGY) 180 mg tablet Take 180 mg [...] Percentile 2 (more content not included)... Normal [facility] XR LSPINE 2_3 VIEWSon 2022 [...] MENDOZA Date: 2022-07-16 11:34 Normal [facility] CNOVon 05-14-2022 CNOV Office Visit (SPMESH ) ALEXA DELGADO ([id number]) 1940 F Date Time Provider Department 05/14/22 2:30 PM MARTY DOZIER [facility] During your visit today, we recorded the following information about you: Pulse Blood pressure Weight Height 72/minute 158/87 76.4 kg 1.524 m Marty Dozier DO 05/15/2022 10:02 PM Signed [facility] - Medical Spine Initial [...] Ratio: R>L low back Current Treatment: Medications Malone 5-325 mg BID - helps Diclofenac 75 [...] but still has pain -01/28/22 Noemi Sequeira SALESPERSON HOSIERY: BL Lumbar erector spinae TPI (0.125% Marcaine, [...] ongoing as of 04/17/21 -03/08/21 Noemi Sequeira [employer] HOSIERY: Left rhomboid TPI (0.125% Marcaine, 40 mg Kenalog) -02/03/21 LESI - moderate relief for 4 days Prior spine surgery: -2006 L4-5 Discectomy Previously treated by: -[facility], previously Dr. Niko Beckwith who is leaving the practice and going forward treatment will be with Dr. Porsha Garcia. Last visit 05/13/22 Dr. 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 I could not appreciate any facet loading pain clinically on examination today. She has an evaluation at the [facility] tomorrow at the Spine Center. RECOMMENDATIONS: We will see the pat (more content not included)... Normal [facility] CULTURE URINEon 04-05-2022 CULTURE URINE Culture Observations : LIGHT GROWTH OF MIXED GENITAL ALANIS. NO POTENTIAL PATHOGENS SEEN. Normal [facility] Comment on above: Performed By: #### U RCX ####[facility] [address] [place] [address]Dr. Grace Abdul UA RANDOM W/MICROSCOPICon BACTERIA NONE SEEN Normal NONE SEEN [facility] Comment on above: Performed By: #### U AMIC ####[facility] [address] [place] [address]Dr. Grace Abdul Bilirubin Ql (U) Negative Normal NEGATIVE [facility] Comment on above: Performed By: #### U AMIC ####[facility] [address] [place], [place] [address]Dr. Grace Abdul CAST NONE SEEN Normal NONE SEEN [facility] Comment on above: Performed By: #### U AMIC ####[facility] [address] [place] [address]Dr. Grace Abdul Clarity (U) CLEAR Normal CLEAR [facility] Comment on above: Performed By: #### U AMIC ####[facility] [address] [place] [address]Dr. Grace Abdul Color (U) YELLOW Normal YELLOW [facility] Comment on above: Performed By: #### U AMIC ####[facility] [address] [place] [address]Dr. Grace Abdul Crystals LM Nom (Urine sed) NONE SEEN Normal NONE SEEN [facility] Comment on above: Performed By: #### U AMIC ####[facility] [address] [place] [address]Dr. Grace Abdul Epithelial cells LM Ql (Urine sed) RARE Normal NONE SEEN /RARE [facility] Comment on above: Performed By: #### U AMIC ####[facility] [address] [place] [address]Dr. Grace Abdul Glucose Ql (U) Negative Normal NEGATIVE [facility] Comment on above: Performed By: #### U AMIC ####[facility] [address] [place] [address]Dr. Grace Abdul Hemoglobin Ql (U) MODERATE Abnormal NEGATIVE [facility] Comment on above: Performed By: #### U AMIC ####[facility] [address] [place], [place] [address]Dr. Grace Abdul Ketones Ql (U) TRACE Abnormal NEGATIVE [facility] Comment on above: Performed By: #### U AMIC ####[facility] [address] [place], [place] [address]Dr. Grace Abdul LEUKOCYTES TRACE Abnormal NEGATIVE [facility] Comment on above: Performed By: #### U AMIC ####[facility] [address] [place], [place] [address]Dr. Grace Abdul MUCOUS NONE SEEN Normal NONE SEEN [facility] Comment on above: Performed By: #### U AMIC ####[facility] [address] [place], [place] [address]Dr. Grace Abdul Nitrite Ql (U) Negative Normal NEGATIVE [facility] Comment on above: Performed By: #### U AMIC ####[facility] [address] [place], [place] [address]Dr. Grace Abdul pH (U) 5.0 [pH] Normal 5-[address] [facility] Comment on above: Performed By: #### U AMIC ####[facility] [address] [place], [place] [address]Dr. Grace Abdul RBC 0-2 Normal 0-[address] [facility] Comment on above: Performed By: #### U AMIC ####[facility] [address] [place], [place] [address]Dr. Grace Abdul SPEC GRAVITY 1.015 Normal 1.005-<=1.025 [facility] Comment on above: Performed By: #### U AMIC ####[facility] [address] [place] [address]Dr. Grace Abdul UA PROTEIN Negative Normal NEGATIVE/ TRACE [facility] Comment on above: Performed By: #### U AMIC ####[facility] [address] [place] [address]Dr. Grace Abdul Urobilinogen Qn (U) 0.2 {Ashley'U}/dL Normal 0.2 - 1. [address] [facility] Comment on above: Performed By: #### U AMIC ####[facility] [address] [place], [place] [address]Dr. Grace Abdul WBC 0-2 Abnormal NONE SEEN [facility] Comment on above: Performed By: #### U AMIC ####[facility] [address] [place], [place] [address]Dr. Grace Abdul CBC AUTO DIFFon 04-04-2022 BASO # 0.0 103/ul Normal 0.0-0.1 [facility] Comment on above: Performed By: #### C BC ####[facility] [address] [place], [place] [address]Dr. Grace Abdul Basophils/100 WBC (Bld) 0.4 % Normal 0.2-2.[address] [facility] Comment on above: Performed By: #### C BC ####[facility] [address] [place], [place] [address]Dr. Grace Abdul EO # 0.1 103/ul Normal 0.0-0.[address] [facility] Comment on above: Performed By: #### C BC ####[facility] [address] [place], [place] [address]Dr. Grace Abdul Eosinophils/100 WBC (Bld) 1.3 % Normal 0.9-7.[address] [facility] Comment on above: Performed By: #### C BC ####[facility] [address] [place], [place] [address]Dr. Grace Abdul Erythrocyte distribution width (RBC) [Ratio] 13.7 % Normal 11.0-15.[address] [facility] Comment on above: Performed By: #### C BC ####[facility] [address] [place] [address]Dr. Grace Abdul Hematocrit (Bld) [Volume fraction] 37.2 % Normal 36.0-48.0 [facility] Comment on above: Performed By: #### C BC ####[facility] [address] [place] [address]Dr. Benitalee ann Abdul Hemoglobin (Bld) [Mass/Vol] 12.4 g/dL Normal 12.0-16.[address] [facility] Comment on above: Performed By: #### C BC ####[facility] [facility] [address]wif[address] [place], [place] [address]Dr. Grace Abdul IG # 0.02 10e3/ul Normal 0.00-0.03 [facility] Comment on above: Performed By: #### C BC ####[facility] Hijcrkyvqs[address] [place], [place] [address]Dr. Grace Abdul IG % 0.4 % Normal 0.0-0.5 [facility] Comment on above: Performed By: #### C BC ####[facility] Rulopnjxcn[address] [place], [place] [address]Dr. Grace Abdul LYMPH # 0.8 103/ul Critically low 1.2-3.8 [facility] Comment on above: Performed By: #### C BC ####[facility] Lcomlkajvi[address] [place], [place] [address]Dr. Grace Abdul Lymphocytes/100 WBC (Bld) 13.9 % Critically low 20.5-60.[address] [facility] Comment on above: Performed By: #### C BC ####[facility] Xbxomfq[address] [place], [place] [address]Dr. Grace Abdul MANUAL DIFF REQ NO Normal [facility] Comment on above: Performed By: #### C BC ####[facility] Ahzypudig[address] [place], [place] [address]Dr. Grace Abdul MCH (RBC) [Entitic mass] 30.5 pg Normal 26.7-34.[address] [facility] Comment on above: Performed By: #### C BC ####[facility] [address]cvf[address] [place] [id number]. Grace Adbul MCHC (RBC) [Mass/Vol] 33.3 g/dL Normal 29.9-35.[address] [facility] Comment on above: Performed By: #### C BC ####[facility] [address] [place] [id number]. Benitalee ann Abdul MCV (RBC) [Entitic vol] 91.4 fL Normal 81.0-99.[address] [facility] Comment on above: Performed By: #### C BC ####[facility] Wijnwbwkxi[address] [place], [place] [address]Dr. Benitalee ann Franko MONO # 0.7 103/ul Normal 0.3-0.[address] [facility] Comment on above: Performed By: #### C BC ####[facility] Rguplwwvsz[address] [place], [place] [address]Dr. Grace Abdul Monocytes/100 WBC (Bld) 13.5 % Critically high 1.7-12.[address] [facility] Comment on above: Performed By: #### C BC ####[facility] Diiqzmpslo[address] [place], [place] [address]Dr. Grace Abdul NEUT # 3.8 103/ul Normal 1.4-6.[address] [facility] Comment on above: Performed By: #### C BC ####[facility] Vijzumikuo[address] [place], [place] [address]Dr. Grace Abdul Neutrophils/100 WBC (Bld) 70.5 % Normal 43.0-75.[address] [facility] Comment on above: Performed By: #### C BC ####[facility] Qpuzznydcg[address] [place], [place] [address]Dr. Grace Abdul Platelet mean volume (Bld) [Entitic vol] 9.0 fL Critically low 9.5-13.[address] [facility] Comment on above: Performed By: #### C BC ####[facility] Kfc[address]zp[address] [place], [place] [address]Dr. Grace Abdul PLT 283 103/ul Normal 150-[address] [facility] Comment on above: Performed By: #### C BC ####[facility] Xwqixrumnf13[address] [place], [place] [address]UsLisette Abdul RBC 4.07 106/ul Critically low 4.20-5.40 [facility] Comment on above: Performed By: #### C BC ####[facility] Fwgjcsmwdl5[address] [place], [place] [address]TgLisette Abdul WBC 5.4 103/ul Normal 4.0-11.0 [facility] Comment on above: Performed By: #### C BC ####[facility] Pytxminwaf[address] [place], [place] [address]Ox. Grace Abdul CT ABD/PELV W CONon 04-04-19 CT ABD/PELV W CON EXAM: CT ABD/PELV [...] EMILY NAVARRETE Date: 2022-04-04 16:59 Normal [address] [facility] ER URINE PROFILEon 3 Bilirubin Ql (U) Negative Normal NEGATIVE [facility] Comment on above: Performed By: #### Anthony ELILSON UMICRO ####[facility] [address] [place] [address]Dr. Grace Abdul Clarity (U) CLEAR Normal CLEAR [facility] Comment on above: Performed By: #### Anthony ELLISON UMICRO ####[facility] [address]ubjeloff[address] [place] [address]Dr. Grace Abdul Color (U) LT. YELLOW Normal YELLOW [facility] Comment on above: Performed By: #### GINA FELDERRO ####[facility] [address]eirnihsws[address] [place] [address]Dr. Grace Abdul ERUAHD A micrscopic examination will be performed if indicated. Normal [facility] Comment on above: Performed By: #### Anthony ELLISON UMICRO ####[facility] Cfclhiiizt[address] [place] [address]Dr. Grace Abdul Glucose Ql (U) Negative Normal NEGATIVE The [facility] Comment on above: Performed By: #### Anthony ELLISON UMICRO ####[facility] [address]oszwhew[address] [place] [address]Dr. Grace Abdul Hemoglobin Ql (U) SMALL Abnormal NEGATIVE The [facility] Comment on above: Performed By: #### Anthony ELLISON UMICRO ####[facility] Buyqjzldqf[address] [place] [address]Dr. Grace Abdul Ketones Ql (U) Negative Normal NEGATIVE The [facility] Comment on above: Performed By: #### GINA FELDERRO ####[facility] [address]xdogzdtnt[address] [place] [address]Dr. Grace Abdul LEUKOCYTES TRACE Abnormal NEGATIVE [facility] Comment on above: Performed By: #### GINA FELDERRO ####[facility] Gfvstfpnph[address] [place] [address]Dr. Grace Abdul Nitrite Ql (U) Negative Normal NEGATIVE [facility] Comment on above: Performed By: #### ROBERT FELDER ####[facility] Afqkbcitch[address] [place] [address]Dr. Grace Abdul pH (U) 7.5 [pH] Normal 5-[address] [facility] Comment on above: Performed By: #### ROBERT FELDER ####[facility] Pknhpjyxnt[address] [place] [address]Dr. Grace Abdul SPEC GRAVITY 1.005 Normal 1.005-<=1.025 [facility] Comment on above: Performed By: #### ROBERT FELDER ####[facility] Rcbwvslsqy[address] [place] [address]Dr. Grace Abdul UA PROTEIN Negative Normal NEGATIVE/ TRACE [facility] Comment on above: Performed By: #### ROBERT FELDER ####[facility] [address]uaqwi[address] [place] [address]Dr. Grace Abdul UR MICRO IND INDICATED Normal [facility] Comment on above: Performed By: #### ROBERT FELDER ####[facility] Zdtxihjpcc[address] [place] [address]Dr. Grace Abdul Urobilinogen Qn (U) 0.2 {Ashley'U}/dL Normal 0.2 - 1. [address] [facility] Comment on above: Performed By: #### ROBERT FELDER ####[facility] Yhbgcqyyue16[address] [place] [address]Dr. Grace Abdul LIPASEon 04-04-2022 Lipase [Catalytic activity/Vol] 115.0 U/L Normal 73.0-393.[address] [facility] Comment on above: Performed By: #### C VDTB #### [facility] [address] [address] [address] Grace Abdul PROF 14(COMP METB)on 023 Albumin [Mass/Vol] 3.6 g/dL Normal 3.4-5.0 [facility] Comment on above: Performed By: #### C VDTBH #### [facility] [address] [address] [address] Grace Abdul Albumin/Globulin [Mass ratio] 1.1 {ratio} Normal [facility] Comment on above: Performed By: #### C VDTBH #### [facility] [address] [address] [address] Grace Abdul ALP [Catalytic activity/Vol] 74 U/L Normal 46-116 [facility] Comment on above: Performed By: #### C VDTBH #### [facility] [address] [address] [address] Grace Abdul ALT [Catalytic activity/Vol] 23 U/L Normal 14-59 [facility] Comment on above: Performed By: #### C VDTBH #### [facility] [address] [place] [address] Dr. Grace Abdul Anion gap [Moles/Vol] 12.1 mmol/L Normal [facility] Comment on above: Performed By: #### C VDTBH #### [facility] [address] [place] [address] Dr. Grace Abdul AST [Catalytic activity/Vol] 21 U/L Normal 15-37 [facility] Comment on above: Performed By: #### C VDTBH #### [facility] [address] [place] [address] Dr. Grace Abdul Bilirubin [Mass/Vol] 0.2 mg/dL Normal 0.2-1.0 [facility] Comment on above: Performed By: #### C VDTBH #### [facility] [address] [address] [address] Grace Abdul Calcium [Mass/Vol] 9.3 mg/dL Normal 8.5-10.1 [facility] Comment on above: Performed By: #### C VDTBH #### [facility] [address] [address] [address] Grace Abdul Chloride [Moles/Vol] 99 mmol/L Normal 98-[address] [facility] Comment on above: Performed By: #### C VDTBH #### [facility] [address] [address] [address] Grace Abdul CO2 [Moles/Vol] 31.2 mmol/L Normal 21.0-32.0 [facility] Comment on above: Performed By: #### C VDTBH #### [facility] [address] [address] [address] Grace Abdul Creatinine [Mass/Vol] 1.22 mg/dL Critically high 0.55-1.02 [facility] Comment on above: Performed By: #### C VDTBH #### [facility] [address] [address] [address] Grace Abdul EGFR-AF ARGENTINE 51 mL/min/1.73m2 Critically low >=60 [facility] Comment on above: Performed By: #### C VDTBH #### [facility] [address] [address] [address] Grace Abdul EGFR-NON AF ARGENTINE 42 mL/min/1.73m2 Critically low >=60 [facility] Comment on above: Performed By: #### C VDTBH #### [facility] [address] [address] [address] Grace Abdul Globulin (S) [Mass/Vol] 3.3 g/dL Normal [facility] Comment on above: Performed By: #### C VDTBH #### [facility] [address] [address] [address] Grace Abdul Glucose [Mass/Vol] 115 mg/dL Critically high 74-106 [facility] Comment on above: Performed By: #### C VDTBH #### [facility] [address] [address] [address] Grace Abdul Potassium [Moles/Vol] 3.3 mmol/L Critically low 3.5-5.1 [facility] Comment on above: Performed By: #### C VDTBH #### [facility] [address] [address] [address] Grace Abdul Protein [Mass/Vol] 6.9 g/dL Normal 6.4-8.2 [facility] Comment on above: Performed By: #### C VDTBH #### [facility] [address] [address] [address] Grace Abdul Sodium [Moles/Vol] 139 mmol/L Normal 136-145 [facility] Comment on above: Performed By: #### C VDTBH #### [facility] [address] [address] [address] Grace Abdul Urea nitrogen [Mass/Vol] 23.0 mg/dL Critically high 7.0-18.0 [facility] Comment on above: Performed By: #### C VDTBH #### [facility] [address] [address] [address] Grace Abdul Urea nitrogen/Creatinine [Mass ratio] 18.9 mg/mg Normal [facility] Comment on above: Performed By: #### C VDTB #### [facility] [address] [address] [address] Grace Abdul URINE MICROSCOPIC ONLYon BACTERIA NONE SEEN Normal NONE SEEN [facility] Comment on above: Performed By: #### Anthony ELLISON UMICRO ####[facility] [address]xyinp[address] [place] [address]Dr. Grace Abdul Bacteria identified Cx Nom (U) NOT INDICATED Normal [facility] Comment on above: Performed By: #### Anthony ELLISON UMICRO ####[facility] Dtrkzvdhaf[address] [place] [address]Dr. Grace Abdul CAST NONE SEEN Normal NONE SEEN [facility] Comment on above: Performed By: #### Anthony ELLISON UMICRO ####[facility] Pfjbqadoct[address] [place] [address]Dr. Grace Abdul Crystals LM Nom (Urine sed) NONE SEEN Normal NONE SEEN [facility] Comment on above: Performed By: #### Anthony ELLISON UMICRO ####[facility] Dxbftvfkwa9[address] [place] [address]Dr. Grace Abdul Epithelial cells LM Ql (Urine sed) RARE Normal NONE SEEN /RARE [facility] Comment on above: Performed By: #### ROBERT FELDER ####[facility] Jldgkugqlu4[address] [place] [id number]. Grace Abdul MUCOUS NONE SEEN Normal NONE SEEN [facility] Comment on above: Performed By: #### ROBERT FELDER ####[facility] [address]jjgiwphxr60[address] [place] [id number]. Grace Abdul RBC 0-2 Normal 0-[address] [facility] Comment on above: Performed By: #### ROBERT FELDER ####[facility] [address]vrnfrrsxu74[address] [place] [id number]. Grace Abdul WBC 0-2 Abnormal NONE SEEN [facility] Comment on above: Performed By: #### ROBERT FELDER ####[facility] L[address]zciwxeow14[address] [place] [address]DrLisette Abdul BNPon 12-11-2021 Natriuretic peptide B (Bld) [Mass/Vol] 665.0 pg/mL Normal <=1,800.0 [facility] Comment on above: Performed By: #### B MP #### [facility] [address] [address] [address] Grace Abdul CBC AUTO DIFFon 12-11-2021 BASO # 0.0 103/ul Normal 0.0-0.1 [facility] Comment on above: Performed By: #### C BC ####[facility] Fbkckhxsop[address] [place] [address]DrLisette Abdul Basophils/100 WBC (Bld) 0.5 % Normal 0.2-2.[address] [facility] Comment on above: Performed By: #### C BC ####[facility] Mlojocdbmb5[address] [place] [address]DrLisette Abdul EO # 0.1 103/ul Normal 0.0-0.[address] [facility] Comment on above: Performed By: #### C BC ####[facility] Mfnbjhgofu2577 [place] [address]DrLisette Abdul Eosinophils/100 WBC (Bld) 1.9 % Normal 0.9-7.[address] [facility] Comment on above: Performed By: #### C BC ####[facility] Xhxiikkgih39[address] [place] [address]Dr. Grace Abdul Erythrocyte distribution width (RBC) [Ratio] 13.4 % Normal 11.0-15.0 [facility] Comment on above: Performed By: #### C BC ####[facility] Enpodvxkch72[address] [place] [address]Dr. Grace Abdul Hematocrit (Bld) [Volume fraction] 36.2 % Normal 36.0-48.0 [facility] Comment on above: Performed By: #### C BC ####[facility] Yygsxuyxtt[address] [place], [place] [address]DrLisette Grace Abdul Hemoglobin (Bld) [Mass/Vol] 11.9 g/dL Critically low 12.0-16.0 [facility] Comment on above: Performed By: #### C BC ####[facility] Xjlngxknow20[address] [place], [place] [address]DrLisette Grace Abdul IG # 0.01 10e3/ul Normal 0.00-0.03 [facility] Comment on above: Performed By: #### C BC ####[facility] Bdemkrcgjy[address] [place], [place] [address]DrLisette Grace Abdul IG % 0.2 % Normal 0.0-0.5 [facility] Comment on above: Performed By: #### C BC ####[facility] Xxqsnpgofe92[address] [place], [place] [address]DrLisette Grace Abdul LYMPH # 0.5 103/ul Critically low 1.2-3.8 [facility] Comment on above: Performed By: #### C BC ####[facility] Pzgmeogxam5[address] [place], [place] [address]DrLisette Grace Abdul Lymphocytes/100 WBC (Bld) 11.5 % Critically low 20.5-60.0 [facility] Comment on above: Performed By: #### C BC ####[facility] Zstvmdkndp[address] [place], [place] [address]DrLisette Grace Franko MANUAL DIFF REQ NO Normal [facility] Comment on above: Performed By: #### C BC ####[facility] Ekqqlzyhjx0747 [place] [id number]. Grace Franko MCH (RBC) [Entitic mass] 31.6 pg Normal 26.7-34.0 [facility] Comment on above: Performed By: #### C BC ####[facility] Xqiqwojgth2591 [place] [id number]. Grace Franko MCHC (RBC) [Mass/Vol] 32.9 g/dL Normal 29.9-35.[address] [facility] Comment on above: Performed By: #### C BC ####[facility] Jvkxaftefi28[address] [place] [address]Dr. Grace Abdul MCV (RBC) [Entitic vol] 96.0 fL Normal 81.0-99.0 [facility] Comment on above: Performed By: #### C BC ####[facility] [address]cvjnyj[address] [place], [place] [address]Dr. Grace Abdul MONO # 0.6 103/ul Normal 0.3-0.8 [facility] Comment on above: Performed By: #### C BC ####[facility] Sglhydzmsg[address] [place], [place] [address]Dr. Grace Abdul Monocytes/100 WBC (Bld) 14.4 % Critically high 1.7-12.0 [facility] Comment on above: Performed By: #### C BC ####[facility] [address]qfnojpx[address] [place], [place] [address]Dr. Grace Abdul NEUT # 3.0 103/ul Normal 1.4-6.[address] [facility] Comment on above: Performed By: #### C BC ####[facility] [address]kbbiugv[address] [place], [place] [address]DrLisette Abdul Neutrophils/100 WBC (Bld) 71.5 % Normal 43.0-75.[address] [facility] Comment on above: Performed By: #### C BC ####[facility] Ttetnetfee[address] [place], [place] [address]DrLisette Abdul Platelet mean volume (Bld) [Entitic vol] 9.2 fL Critically low 9.5-13.5 [facility] Comment on above: Performed By: #### C BC ####[facility] Xtlowjechz6440 [place], [place] [address]ItLisette Abdul PLT 290 103/ul Normal 150-450 [facility] Comment on above: Performed By: #### C BC ####[facility] Dkpznjtotv6786 [place], [place] [address]Jf. Grace Abdul RBC 3.77 106/ul Critically low 4.20-5.40 [facility] Comment on above: Performed By: #### C BC ####[facility] Xjotfpmzcs5672 [place], [place] [address]Py. Grace Abdul WBC 4.2 103/ul Normal 4.0-11.0 [facility] Comment on above: Performed By: #### C BC ####[facility] Eejpzxwsiu28[address] [place] [id number]. Grace Abdul FREE THYROXINE INDEX T7on FTI 2.63 Normal 1.30-4.50 [facility] Comment on above: Performed By: #### B MP #### [facility] [address] [address] [address] Grace Abdul T3U 35.0 % Normal 30.0-39.0 [facility] Comment on above: Performed By: #### B MP #### [facility] [address] [address] [address] Grace Abdul T4 [Mass/Vol] 7.50 ug/dL Normal 4.80-13.90 [facility] Comment on above: Performed By: #### B MP #### [facility] [address] [address] [address] Grace Abdul GLYCOHEMOGLOBIN A1Con 2021 ADA RECOMMENDATION SEE BELOW Normal [facility] Comment on above: Result Comment: ADA RECOMMENDED LIMIT 4.0 - 6.0 ADA THERAPEUTIC TARGET < 7.0 ACTION SUGGESTED > 7.0 Performed By: #### A 1C ####[facility] [address]zcynldk[address] [place] [address]Dr. Grace Abdul Glucose [Mass/Vol] 111 mg/dL Normal [facility] Comment on above: Performed By: #### A 1C ####[facility] Nvajkwzmtu49[address] [place] [id number]. Grace Abdul HbA1c (Bld) [Mass fraction] 5.5 % Normal 4.5-6.2 [facility] Comment on above: Performed By: #### A 1C ####[facility] Bkswyhxjis[address] [place] [id number]. Grace Abdul IRONon 12-11-2021 Iron [Mass/Vol] 50.0 ug/dL Normal 50.0-170.0 [facility] Comment on above: Performed By: #### I KASANDRA WEBSTER VITB12 ####[facility] Smfzcgsgul93[address] [place] [id number] Abdul LIPID PROFILEon 12-11-2021 CHOL-HDL RATIO NORM SEE BELOW Normal [facility] Comment on above: Result Comment: 3.3 - 4.4 LOW RISK 4.4 - 7.1 AVERAGE RISK 7.1 - 11.0 MODERATE RISK >11.0 HIGH RISK Performed By: #### B MP #### [facility] [address] [address] [address] Grace Abdul Cholesterol [Mass/Vol] 182 mg/dL Normal <=200 [facility] Comment on above: Performed By: #### B MP #### [facility] [address] [address] [address] Grace Abdul Cholesterol in HDL [Mass/Vol] 60 mg/dL Normal 40-60 [facility] Comment on above: Performed By: #### B MP #### [facility] [address] [address] [address] Grace Abdul Cholesterol in LDL [Mass/Vol] 101.2 mg/dL Normal [facility] Comment on above: Performed By: #### B MP #### [facility] [address] [address] [address] Garce Abdul Cholesterol.total/Ch olesterol in HDL [Mass ratio] 3.0 {ratio} Normal [facility] Comment on above: Performed By: #### B MP #### [facility] [address] [address] [address] Grace Abdul HDL NORMAL > or = 60 mg/dl - LO W CARDIOVASCULAR RISK <40 mg/dl - HIGH CARDIOVASCULAR RISK Normal [facility] Comment on above: Performed By: #### B MP #### [facility] [address] [address] [address] Grace Abdul LDL CALC NORMAL SEE BELOW Normal [facility] Comment on above: Result Comment: <100 mg/dl OPTIMAL 100 - 129 mg/dl NEAR OR ABOVE OPTIMAL 130 - 159 mg/dl BORDERLINE HIGH 160 - 189 mg/dl HIGH >190 mg/dl VERY HIGH Performed By: #### B MP #### [facility] [address] [place] [address] Dr. Grace Abdul Triglyceride [Mass/Vol] 104 mg/dL Normal <=150 [facility] Comment on above: Performed By: #### B MP #### [facility] [address] [address] [address] Grace Abdul VLDL CALC 20.8 mg/dL Normal [facility] Comment on above: Performed By: #### B MP #### [facility] [address] [place] [address] Dr. Grace Abdul PROF 14(COMP METB)on 022 Albumin [Mass/Vol] 3.5 g/dL Normal 3.4-5.0 [facility] Comment on above: Performed By: #### B MP #### [facility] [address] [place] [address] Dr. Grace Abdul Albumin/Globulin [Mass ratio] 1.0 {ratio} Normal [facility] Comment on above: Performed By: #### B MP #### [facility] [address] [place] [address] Dr. Grace Abdul ALP [Catalytic activity/Vol] 55 U/L Normal 46-116 [facility] Comment on above: Performed By: #### B MP #### [facility] [address] [place] [address] Dr. Grace Abdul ALT [Catalytic activity/Vol] 21 U/L Normal 14-59 [facility] Comment on above: Performed By: #### B MP #### [facility] [address] [address] Dr. Grace Abdul Anion gap [Moles/Vol] 9.3 mmol/L Normal [facility] Comment on above: Performed By: #### B MP #### [facility] [address] [address] [address] Grace Abdul AST [Catalytic activity/Vol] 21 U/L Normal 15-37 [facility] Comment on above: Performed By: #### B MP #### [facility] [address] [address] [address] Grace Abdul Bilirubin [Mass/Vol] 0.3 mg/dL Normal 0.2-1.0 [facility] Comment on above: Performed By: #### B MP #### [facility] [address] [address] [address] Grace Abdul Calcium [Mass/Vol] 9.5 mg/dL Normal 8.5-10.1 [facility] Comment on above: Performed By: #### B MP #### [facility] [address] [place] [address] Dr. Grace Abdul Chloride [Moles/Vol] 102 mmol/L Normal 98-107 [facility] Comment on above: Performed By: #### B MP #### [facility] [address] [address] [address] Grace Abdul CO2 [Moles/Vol] 28.5 mmol/L Normal 21.0-32.0 [facility] Comment on above: Performed By: #### B MP #### [facility] [address] [address] [address] Grace Abdul Creatinine [Mass/Vol] 1.04 mg/dL Critically high 0.55-1.02 [facility] Comment on above: Performed By: #### B MP #### [facility] [address] [address] [address] Grace Abdul EGFR-AF ARGENTINE >60 Normal >=60 [facility] Comment on above: Performed By: #### B MP #### [facility] [address] [address] [address] Grace Abdul EGFR-NON AF ARGENTINE 51 mL/min/1.73m2 Critically low >=60 [facility] Comment on above: Performed By: #### B MP #### [facility] [address] [address] [address] Grace Abdul Globulin (S) [Mass/Vol] 3.5 g/dL Normal [facility] Comment on above: Performed By: #### B MP #### [facility] [address] [address] [address] Grace Abdul Glucose [Mass/Vol] 102 mg/dL Normal 74-106 [facility] Comment on above: Performed By: #### B MP #### [facility] [address] [address] [address] Grace Abdul Potassium [Moles/Vol] 3.8 mmol/L Normal 3.5-5.1 [facility] Comment on above: Performed By: #### B MP #### [facility] [address] [address] [address] Grace Abdul Protein [Mass/Vol] 7.0 g/dL Normal 6.4-8.2 [facility] Comment on above: Performed By: #### B MP #### [facility] [address] [address] [address] Grace Abdul Sodium [Moles/Vol] 136 mmol/L Normal 136-145 [facility] Comment on above: Performed By: #### B MP #### [facility] [address] [address] [address] Grace Abdul Urea nitrogen [Mass/Vol] 20.0 mg/dL Critically high 7.0-18.0 [facility] Comment on above: Performed By: #### B MP #### [facility] [address] [address] [address] Grace Abdul Urea nitrogen/Creatinine [Mass ratio] 19.2 mg/mg Normal [facility] Comment on above: Performed By: #### B MP #### [facility] [address] [address] [address] Grace Abdul TSHon 12-11-2021 TSH 0.247 uIU/mL Critically low 0.358-3.740 [facility] Comment on above: Performed By: #### B MP #### [facility] [address] [address] [address] Grace Abdul VITAMIN B12on 12-11-2021 Cobalamin (Vitamin B12) [Mass/Vol] 762.0 pg/mL Normal 193.0-986.0 [facility] Comment on above: Performed By: #### I DARIN VITAD, VITB12 ####[facility] [address] [address]Dr. Grace Abdul VITAMIN D 25 OHon 12-11-2021 VIT D 25-OH 54.9 ng/mL Normal [facility] Comment on above: Performed By: #### I DARIN VITAD, VITB12 ####[facility] [address] [address]DrLisette Abdul VIT D RANGES SEE BELOW Normal [facility] Comment on above: Result Comment: <20 ng/mL Vit D deficient 20 - <30 ng/mL Vit D insufficient 30 - 100 ng/mL Vit D sufficient >100 ng/mL Potential Toxicity Performed By: #### I DARIN VITAD, VITB12 ####[facility] [address] [address]DrLisette Abdul MG MAMM SCREEN 3D CLEMENCIA CADon 11-25-2021 MG MAMM SCREEN 3D CLEMENCIA CAD Patient: ALEXA DELGADO Exam Date: 11/25/2021 : 1940 Gender:F Ordering : DR GALINA ROGERS . Admission #: [id number] Family : DR ARMANDO MORALES Order #: [id number] CLICK HERE TO VIEW EXAM RADIOLOGY REPORT [...] Treatments None Family Cancers None LOCATION: [facility] BREAST COMPOSITION: Scattered areas fibroglandular [...] MD on 11/25/2021 at 14:14 Normal [facility] CULTURE URINEon 11-24-2021 CULTURE URINE Culture Observations : LIGHT GROWTH OF MIXED GENITAL ALANIS. NO POTENTIAL PATHOGENS SEEN. Normal [facility] Comment on above: Performed By: #### U RCX ####[facility] [address] [address]Dr. Grace Abdul GI PANEL (PCR)on 11-24-2021 Adenovirus F 40/41 Not detected Normal NOT DETECTED [facility] Comment on above: Performed By: #### C BC #### [facility] [address] [place] [address] Dr. Grace Abdul Astrovirus Not detected Normal NOT DETECTED [facility] Comment on above: Performed By: #### C BC #### [facility] [address] [place] [address] Dr. Grace Abdul C. Diff toxin A/B Not detected Normal NOT DETECTED [facility] Comment on above: Performed By: #### C BC #### [facility] [address] [address] [address] Grace Abdul Campylobacter Not detected Normal NOT DETECTED [facility] Comment on above: Performed By: #### C BC #### [facility] [address] [place] [address] Dr. Grace Abdul Cryptosporidium Not detected Normal NOT DETECTED [facility] Comment on above: Performed By: #### C BC #### [facility] [address] [place] [address] Dr. Grace Abdul Cyclos. Cayetanensis Not detected Normal NOT DETECTED [facility] Comment on above: Performed By: #### C BC #### [facility] [address] [place] [address] Dr. Grace Abdul E. Coli O157 Not Applicable Normal Not Applicable [facility] Comment on above: Performed By: #### C BC #### [facility] [address] [place] [address] Dr. Grace Abdul E. histolytica Not detected Normal NOT DETECTED [facility] Comment on above: Performed By: #### C BC #### [facility] [address] [place] [address] Dr. Grace Abdul EAEC Not detected Normal NOT DETECTED [facility] Comment on above: Performed By: #### C BC #### [facility] [address] [place] [address] Dr. Grace Abdul EIEC Not detected Normal NOT DETECTED [facility] Comment on above: Performed By: #### C BC #### [facility] [address] [place] [address] Dr. Grace Abdul EPEC Not detected Normal NOT DETECTED [facility] Comment on above: Performed By: #### C BC #### [facility] [address] [place] [address] Dr. Grace Abdul ETEC Not detected Normal NOT DETECTED [facility] Comment on above: Performed By: #### C BC #### [facility] [address] [place] [address] Dr. Grace Abdul G. Lamblia Not detected Normal NOT DETECTED [facility] Comment on above: Performed By: #### C BC #### [facility] [address] [place] [address] Dr. Grace BURGESSL CONTROLS PASSED Normal [facility] Comment on above: Performed By: #### C BC #### [facility] [address] [place] [address] Dr. Grace NOLASCONL KAUR HEADER GI PANEL BACTERIA Normal [facility] Comment on above: Performed By: #### C BC #### [facility] [address] [address] [address] Grace SANDERS ECOLI GI PANEL DIARRHEAGEN IC E.COLI / SHIGELLA Normal [facility] Comment on above: Performed By: #### C BC #### [facility] [address] [address] [address] Grace SANDERS INFO SEE BELOW Normal [facility] Comment on above: Result Comment: EAEC - Enteroaggregative E. Coli EPEC- Enteropathogenic E. Coli ETEC- Enterotoxigenic E. Coli lt/st STEC- Shigella-like toxin-producing E. Coli stx1/stx2 EIEC- Shigella/Enteroinvasive E. Coli Performed By: #### C BC #### [facility] [address] [address] [address] Grace SANDERS PARASITES GI PANEL PARASITES Normal [facility] Comment on above: Performed By: #### C BC #### [facility] [address] [address] [address] Grace SANDERS VIRUS GI PANEL VIRUSES Normal [facility] Comment on above: Performed By: #### C BC #### [facility] [address] [address] [address] Grace Abdul Norovirus GI/GII Not detected Normal NOT DETECTED [facility] Comment on above: Performed By: #### C BC #### [facility] [address] [address] [address] Grace Abdul P. Shigelloides Not detected Normal NOT DETECTED [facility] Comment on above: Performed By: #### C BC #### [facility] [address] [address] [address] Grace Abdul Rotavirus A Not detected Normal NOT DETECTED [facility] Comment on above: Performed By: #### C BC #### [facility] [address] [address] [address] Grace Abdul Salmonella Not detected Normal NOT DETECTED [facility] Comment on above: Performed By: #### C BC #### [facility] [address] [address] [address] Grace Abdul Sapovirus Not detected Normal NOT DETECTED [facility] Comment on above: Performed By: #### C BC #### [facility] [address] [address] [address] Grace Abdul STEC Not detected Normal NOT DETECTED [facility] Comment on above: Performed By: #### C BC #### [facility] [address] [address] [address] Grace Abdul Vibrio Not detected Normal NOT DETECTED [facility] Comment on above: Performed By: #### C BC #### [facility] [address] [address] [address] Grace Abdul Vibrio Cholera Not detected Normal NOT DETECTED [facility] Comment on above: Performed By: #### C BC #### [facility] [address] [place] [address] Dr. Grace Abdul Y. Enterocolitica Not detected Normal NOT DETECTED [facility] Comment on above: Performed By: #### C BC #### [facility] [address] [place] [address] Dr. Grace Abdul UA RANDOM W/MICROSCOPICon BACTERIA NONE SEEN Normal NONE SEEN [facility] Comment on above: Performed By: #### U AMIC ####[facility] [address] [address]DrLisette Abdul Bilirubin Ql (U) Negative Normal NEGATIVE [facility] Comment on above: Performed By: #### U AMIC ####[facility] [address] [address]DrLisette Abdul CAST NONE SEEN Normal NONE SEEN [facility] Comment on above: Performed By: #### U AMIC ####[facility] [address] [place], [place] [address]DrLisette Abdul Clarity (U) CLEAR Normal CLEAR [facility] Comment on above: Performed By: #### U AMIC ####[facility] [address] [address]DrLisette Abdul Color (U) LT. YELLOW Normal YELLOW [facility] Comment on above: Performed By: #### U AMIC ####[facility] [address] [address]Dr. Grace Abdul Crystals LM Nom (Urine sed) NONE SEEN Normal NONE SEEN [facility] Comment on above: Performed By: #### U AMIC ####[facility] [address] [id number] Grace Abdul Epithelial cells LM Ql (Urine sed) FEW Abnormal NONE SEEN /RARE [facility] Comment on above: Performed By: #### U AMIC ####[facility] [address] [address]Dr. Grace Abdul Glucose Ql (U) Negative Normal NEGATIVE [facility] Comment on above: Performed By: #### U AMIC ####[facility] [address] [address]Dr. Grace Abdul Hemoglobin Ql (U) TRACE-INTACT Abnormal NEGATIVE [facility] Comment on above: Performed By: #### U AMIC ####[facility] [address] [address]Dr. Grace Abdul Ketones Ql (U) Negative Normal NEGATIVE [facility] Comment on above: Performed By: #### U AMIC ####[facility] [address] [address]Dr. Grace Abdul LEUKOCYTES Negative Normal NEGATIVE [facility] Comment on above: Performed By: #### U AMIC ####[facility] [address] [address]Dr. Grace Abdul MUCOUS NONE SEEN Normal NONE SEEN [facility] Comment on above: Performed By: #### U AMIC ####[facility] [address] [address]Dr. Grace Abdul Nitrite Ql (U) Negative Normal NEGATIVE [facility] Comment on above: Performed By: #### U AMIC ####[facility] [address] [address]Dr. Grace Abudl pH (U) 7.5 [pH] Normal 5-[address] [facility] Comment on above: Performed By: #### U AMIC ####[facility] [address] [address]Dr. Grace Abdul RBC 0-2 Normal 0-[address] [facility] Comment on above: Performed By: #### U AMIC ####[facility] [address] [id number]. Grace Abdul SPEC GRAVITY 1.010 Normal 1.005-<=1.025 [facility] Comment on above: Performed By: #### U AMIC ####[facility] [address] [address]Dr. Grace Abdul UA PROTEIN Negative Normal NEGATIVE/ TRACE [facility] Comment on above: Performed By: #### U AMIC ####[facility] [address] [address]Dr. Grace Abdul Urobilinogen Qn (U) 0.2 {Ashley'U}/dL Normal 0.2 - 1. [address] [facility] Comment on above: Performed By: #### U AMIC ####[facility] [address] [address]Dr. Grace Abdul WBC NONE SEEN Normal NONE SEEN [facility] Comment on above: Performed By: #### U AMIC ####[facility] [address] [address]Dr. Grace Abdul CBC AUTO DIFFon 11-23-2021 BASO # 0.0 103/ul Normal 0.0-0.[address] [facility] Comment on above: Performed By: #### C BC #### [facility] [address] [address] [address] Grace Abdul Basophils/100 WBC (Bld) 0.4 % Normal 0.2-2.[address] [facility] Comment on above: Performed By: #### C BC #### [facility] [address] [address] [address] Grace Abdul EO # 0.1 103/ul Normal 0.0-0.[address] [facility] Comment on above: Performed By: #### C BC #### [facility] [address] [place] [address] Dr. Grace Abdul Eosinophils/100 WBC (Bld) 1.5 % Normal 0.9-7.0 [facility] Comment on above: Performed By: #### C BC #### [facility] [address] [place] [address] Dr. Grace Abdul Erythrocyte distribution width (RBC) [Ratio] 13.2 % Normal 11.0-15.0 [facility] Comment on above: Performed By: #### C BC #### [facility] [address] [place] [address] Dr. Grace Abdul Hematocrit (Bld) [Volume fraction] 31.9 % Critically low 36.0-48.0 [facility] Comment on above: Performed By: #### C BC #### [facility] [address] [place] [address] Dr. Grace Abdul Hemoglobin (Bld) [Mass/Vol] 10.5 g/dL Critically low 12.0-16.0 [facility] Comment on above: Performed By: #### C BC #### [facility] [address] [place] [address] Dr. Grace Abdul IG # 0.01 10e3/ul Normal 0.00-0.03 [facility] Comment on above: Performed By: #### C BC #### [facility] [address] [place] [address] Dr. Grace Abdul IG % 0.2 % Normal 0.0-0.[address] [facility] Comment on above: Performed By: #### C BC #### [facility] [address] [place] [address] Dr. Grace Abdul LYMPH # 0.7 103/ul Critically low 1.2-3.8 [facility] Comment on above: Performed By: #### C BC #### [facility] [address] [place] [address] Dr. Grace Abdul Lymphocytes/100 WBC (Bld) 14.8 % Critically low 20.5-60.0 [facility] Comment on above: Performed By: #### C BC #### [facility] [address] [place] [address] Dr. Grace Abdul MANUAL DIFF REQ NO Normal [facility] Comment on above: Performed By: #### C BC #### [facility] [address] [place] [address] Dr. Grace Abdul MCH (RBC) [Entitic mass] 31.4 pg Normal 26.7-34.0 [facility] Comment on above: Performed By: #### C BC #### [facility] [address] [place] [address] Dr. Grace Abdul MCHC (RBC) [Mass/Vol] 32.9 g/dL Normal 29.9-35.[address] [facility] Comment on above: Performed By: #### C BC #### [facility] [address] [place] [address] Dr. Grace Abdul MCV (RBC) [Entitic vol] 95.5 fL Normal 81.0-99.0 [facility] Comment on above: Performed By: #### C BC #### [facility] [address] [place] [address] Dr. Grace Abdul MONO # 0.6 103/ul Normal 0.3-0.[address] [facility] Comment on above: Performed By: #### C BC #### [facility] [address] [place] [address] Dr. Grace Abdul Monocytes/100 WBC (Bld) 13.4 % Critically high 1.7-12.0 [facility] Comment on above: Performed By: #### C BC #### [facility] [address] [place] [address] Dr. Grace Abdul NEUT # 3.3 103/ul Normal 1.4-6.[address] [facility] Comment on above: Performed By: #### C BC #### [facility] [address] [place] [address] Dr. Grace Abdul Neutrophils/100 WBC (Bld) 69.7 % Normal 43.0-75.[address] [facility] Comment on above: Performed By: #### C BC #### [facility] [address] [address] [address] Grace Abdul Platelet mean volume (Bld) [Entitic vol] 9.1 fL Critically low 9.5-13.[address] [facility] Comment on above: Performed By: #### C BC #### [facility] [address] [address] [address] Grace Abdul PLT 335 103/ul Normal 150-[address] [facility] Comment on above: Performed By: #### C BC #### [facility] [address] [address] [address] Grace Abdul RBC 3.34 106/ul Critically low 4.20-5.40 [facility] Comment on above: Performed By: #### C BC #### [facility] [address] [address] [address] Grace Abdul WBC 4.8 103/ul Normal 4.0-11.[address] [facility] Comment on above: Performed By: #### C BC #### [facility] [address] [address] [address] Grace Abdul FREE THYROXINE INDEX T7on FTI 1.15 Critically low 1.30-4.50 [facility] Comment on above: Performed By: #### T 7, CMP, TSH ####[facility] [address] [id number] Abdul T3U 31.0 % Normal 30.0-39.[address] [facility] Comment on above: Performed By: #### T 7, CMP, TSH ####[facility] [address] [id number]. Grace Abdul T4 [Mass/Vol] 3.70 ug/dL Critically low 4.80-13.90 [facility] Comment on above: Performed By: #### T 7, CMP, TSH ####[facility] [address] [id number]. Grace Abdul IRONon 11-23-2021 Iron [Mass/Vol] 52.0 ug/dL Normal 50.0-170.0 [facility] Comment on above: Performed By: #### C VDTBH #### [facility] [address] [place], [place] [address] Dr. Grace Abdul PROF 14(COMP METB)on 022 Albumin [Mass/Vol] 3.5 g/dL Normal 3.4-5.0 [facility] Comment on above: Performed By: #### T 7, CMP, TSH ####[facility] [address] [id number]. Grace Abdul Albumin/Globulin [Mass ratio] 1.1 {ratio} Normal [facility] Comment on above: Performed By: #### T 7, CMP, TSH ####[facility] [address] [address]Dr. Grace Abdul ALP [Catalytic activity/Vol] 69 U/L Normal 46-116 [facility] Comment on above: Performed By: #### T 7, CMP, TSH ####[facility] [address] [address]Dr. Grace Abdul ALT [Catalytic activity/Vol] 51 U/L Normal 14-59 [facility] Comment on above: Performed By: #### T 7, CMP, TSH ####[facility] [address] [address]Dr. Grace Abdul Anion gap [Moles/Vol] 11.5 mmol/L Normal [facility] Comment on above: Performed By: #### T 7, CMP, TSH ####[facility] [address] [address]Dr. Grace Abdul AST [Catalytic activity/Vol] 24 U/L Normal 15-37 [facility] Comment on above: Performed By: #### T 7, CMP, TSH ####[facility] [address] [address]Dr. Grace Abdul Bilirubin [Mass/Vol] 0.2 mg/dL Normal 0.2-1.0 [facility] Comment on above: Performed By: #### T 7, CMP, TSH ####[facility] [address] [place] [address]Dr. Grace Abdul Calcium [Mass/Vol] 9.3 mg/dL Normal 8.5-10.1 [facility] Comment on above: Performed By: #### T 7, CMP, TSH ####[facility] [address] [place] [address]Dr. Grace Abdul Chloride [Moles/Vol] 98 mmol/L Normal 98-[address] [facility] Comment on above: Performed By: #### T 7, CMP, TSH ####[facility] [address] [place] [address]Dr. Grace Abdul CO2 [Moles/Vol] 28.7 mmol/L Normal 21.0-32.0 [facility] Comment on above: Performed By: #### T 7, CMP, TSH ####[facility] [address] [place], [place] [address]Dr. Grace Abdul Creatinine [Mass/Vol] 1.11 mg/dL Critically high 0.55-1.[address] [facility] Comment on above: Performed By: #### T 7, CMP, TSH ####[facility] [address] [place], [place] [address]Dr. Grace Abdul EGFR-AF ARGENTINE 57 mL/min/1.73m2 Critically low >=[address] [facility] Comment on above: Performed By: #### T 7, CMP, TSH ####[facility] [address] [place], [place] [address]Dr. Grace Abdul EGFR-NON AF ARGENTINE 47 mL/min/1.73m2 Critically low >=[address] [facility] Comment on above: Performed By: #### T 7, CMP, TSH ####[facility] [address] [place] [address]Dr. Grace Abdul Globulin (S) [Mass/Vol] 3.3 g/dL Normal The [facility] Comment on above: Performed By: #### T 7, CMP, TSH ####[facility] [address] [place] [address]Dr. Grace Abdul Glucose [Mass/Vol] 88 mg/dL Normal 74-106 [facility] Comment on above: Performed By: #### T 7, CMP, TSH ####[facility] [address] [place] [id number]. Grace Abdul Potassium [Moles/Vol] 4.2 mmol/L Normal 3.5-5.1 [facility] Comment on above: Performed By: #### T 7, CMP, TSH ####[facility] [address] [place] [address]Dr. Grace Abdul Protein [Mass/Vol] 6.8 g/dL Normal 6.4-8.2 [facility] Comment on above: Performed By: #### T 7, CMP, TSH ####[facility] [address] [place] [address]Dr. Grace Abdul Sodium [Moles/Vol] 134 mmol/L Critically low 136-145 [facility] Comment on above: Performed By: #### T 7, CMP, TSH ####[facility] [address] [place] [address]Dr. Grace Abdul Urea nitrogen [Mass/Vol] 33.0 mg/dL Critically high 7.0-18.0 [facility] Comment on above: Performed By: #### T 7, CMP, TSH ####[facility] [address] [place] [address]Dr. Grace Abdul Urea nitrogen/Creatinine [Mass ratio] 29.7 mg/mg Normal [facility] Comment on above: Performed By: #### T 7, CMP, TSH ####[facility] [address] [place] [address]Dr. Grace Franko TSHon 11-23-2021 TSH 0.469 uIU/mL Normal 0.358-3.740 [facility] Comment on above: Performed By: #### T 7, CMP, TSH ####[facility] [address] [place] [address]Dr. Grace Abdul CBC AUTO DIFFon 11-17-2021 BASO # 0.0 103/ul Normal 0.0-0.1 [facility] Comment on above: Performed By: #### C VDTBH #### [facility] [address] [address] [address] Grace Abdul Basophils/100 WBC (Bld) 0.2 % Normal 0.2-2.0 [facility] Comment on above: Performed By: #### C VDTBH #### [facility] [address] [place] [address] Dr. Grace Abdul EO # 0.1 103/ul Normal 0.0-0.7 [facility] Comment on above: Performed By: #### C VDTBH #### [facility] [address] [place] [address] Dr. Grace Abdul Eosinophils/100 WBC (Bld) 0.9 % Normal 0.9-7.0 [facility] Comment on above: Performed By: #### C VDTBH #### [facility] [address] [place] [address] Dr. Grace Abdul Erythrocyte distribution width (RBC) [Ratio] 12.8 % Normal 11.0-15.0 [facility] Comment on above: Performed By: #### C VDTBH #### [facility] [address] [place] [address] Dr. Grace Abdul Hematocrit (Bld) [Volume fraction] 35.2 % Critically low 36.0-48.0 [facility] Comment on above: Performed By: #### C VDTBH #### [facility] [address] [place] [address] Dr. Grace Abdul Hemoglobin (Bld) [Mass/Vol] 12.1 g/dL Normal 12.0-16.0 [facility] Comment on above: Performed By: #### C VDTBH #### [facility] [address] [place] [address] Dr. Grace Abdul IG # 0.05 10e3/ul Critically high 0.00-0.03 [facility] Comment on above: Performed By: #### C VDTBH #### [facility] [address] [place] [address] Dr. Grace Abdul IG % 0.6 % Critically high 0.0-0.5 [facility] Comment on above: Performed By: #### C VDTBH #### [facility] [address] [address] [address] Grace Abdul LYMPH # 0.6 103/ul Critically low 1.2-3.8 [facility] Comment on above: Performed By: #### C VDTBH #### [facility] [address] [address] [address] Grace Abdul Lymphocytes/100 WBC (Bld) 7.4 % Critically low 20.5-60.0 [facility] Comment on above: Performed By: #### C VDTBH #### [facility] [address] [address] [address] Grace Abdul MANUAL DIFF REQ NO Normal [facility] Comment on above: Performed By: #### C VDTBH #### [facility] [address] [place] [address] Dr. Grace Abdul MCH (RBC) [Entitic mass] 31.5 pg Normal 26.7-34.0 [facility] Comment on above: Performed By: #### C VDTBH #### [facility] [address] [place] [address] Dr. Grace Abdul MCHC (RBC) [Mass/Vol] 34.4 g/dL Normal 29.9-35.2 [facility] Comment on above: Performed By: #### C VDTBH #### [facility] [address] [place] [address] Dr. Grace Abdul MCV (RBC) [Entitic vol] 91.7 fL Normal 81.0-99.0 [facility] Comment on above: Performed By: #### C VDTBH #### [facility] [address] [place] [address] Dr. Grace Abdul MONO # 1.0 103/ul Critically high 0.3-0.8 [facility] Comment on above: Performed By: #### C VDTBH #### [facility] [address] [place] [address] Dr. Grace Abdul Monocytes/100 WBC (Bld) 12.1 % Critically high 1.7-12.0 [facility] Comment on above: Performed By: #### C VDTBH #### [facility] [address] [address] [address] Grace Abdul NEUT # 6.3 103/ul Normal 1.4-6.5 [facility] Comment on above: Performed By: #### C VDTBH #### [facility] [address] [address] [address] Grace Abdul Neutrophils/100 WBC (Bld) 78.8 % Critically high 43.0-75.0 [facility] Comment on above: Performed By: #### C VDTBH #### [facility] [address] [address] [address] Grace Abdul Platelet mean volume (Bld) [Entitic vol] 9.1 fL Critically low 9.5-13.5 [facility] Comment on above: Performed By: #### C VDTBH #### [facility] [address] [place] [address] Dr. Grace Abdul PLT 281 103/ul Normal 150-450 [facility] Comment on above: Performed By: #### C VDTBH #### [facility] [address] [address] [address] Grace Abdul RBC 3.84 106/ul Critically low 4.20-5.40 [facility] Comment on above: Performed By: #### C VDTBH #### [facility] [address] [address] [address] Grace Abdul WBC 8.0 103/ul Normal 4.0-11.0 [facility] Comment on above: Performed By: #### C VDTBH #### [facility] [address] [place] [address] Dr. Grace Abdul MAGNESIUMon 11-17-2021 Magnesium [Mass/Vol] 1.9 mg/dL Normal 1.8-2.4 [facility] Comment on above: Performed By: #### C VDTBH #### [facility] [address] [place] [address] Dr. Grace Abdul PROF CHEM 8 (BAS METB)on Anion gap [Moles/Vol] 13.9 mmol/L Normal [facility] Comment on above: Performed By: #### C VDTBH #### [facility] [address] [place] [address] Dr. Grace Abdul Calcium [Mass/Vol] 8.7 mg/dL Normal 8.5-10.1 [facility] Comment on above: Performed By: #### C VDTBH #### [facility] [address] [place] [address] Dr. Grace Abdul Chloride [Moles/Vol] 101 mmol/L Normal 98-[address] [facility] Comment on above: Performed By: #### C VDTBH #### [facility] [address] [place] [address] Dr. Grace Abdul CO2 [Moles/Vol] 24.3 mmol/L Normal 21.0-32.0 [facility] Comment on above: Performed By: #### C VDTBH #### [facility] [address] [place] [address] Dr. Grace Abdul Creatinine [Mass/Vol] 0.89 mg/dL Normal 0.55-1.[address] [facility] Comment on above: Performed By: #### C VDTBH #### [facility] [address] [place] [address] Dr. Grace Abdul EGFR-AF ARGENTINE >60 Normal >=60 [facility] Comment on above: Performed By: #### C VDTBH #### [facility] [address] [place] [address] Dr. Grace Abdul EGFR-NON AF ARGENTINE >60 Normal >=[address] [facility] Comment on above: Performed By: #### C VDTBH #### [facility] [address] [place] [address] Dr. Grace Abdul Glucose [Mass/Vol] 97 mg/dL Normal 74-106 [facility] Comment on above: Performed By: #### C VDTBH #### [facility] [address] [place] [address] Dr. Grace Abdul Potassium [Moles/Vol] 3.2 mmol/L Critically low 3.5-5.1 [facility] Comment on above: Performed By: #### C VDTBH #### [facility] [address] [place] [address] Dr. Grace Abdul Sodium [Moles/Vol] 136 mmol/L Normal 136-145 [facility] Comment on above: Performed By: #### C VDTBH #### [facility] [address] [place] [address] Dr. Grace Abdul Urea nitrogen [Mass/Vol] 14.0 mg/dL Normal 7.0-18.0 [facility] Comment on above: Performed By: #### C VDTBH #### [facility] [address] [place] [address] Dr. Grace Abdul Urea nitrogen/Creatinine [Mass ratio] 15.7 mg/mg Normal [facility] Comment on above: Performed By: #### C VDTBH #### [facility] [address] [place] [address] Dr. Grace Abdul CBC AUTO DIFFon 11-16-2021 BASO # 0.0 103/ul Normal 0.0-0.1 [facility] Comment on above: Performed By: #### B MP #### [facility] [address] [place] [address] Dr. Grace Abdul Basophils/100 WBC (Bld) 0.2 % Normal 0.2-2.0 [facility] Comment on above: Performed By: #### B MP #### [facility] [address] [place] [address] Dr. Grace Abdul EO # 0.0 103/ul Normal 0.0-0.7 [facility] Comment on above: Performed By: #### B MP #### [facility] [address] [place] [address] Dr. Grace Abdul Eosinophils/100 WBC (Bld) 0.5 % Critically low 0.9-7.0 [facility] Comment on above: Performed By: #### B MP #### [facility] [address] [place] [address] Dr. Grace Abdul Erythrocyte distribution width (RBC) [Ratio] 12.4 % Normal 11.0-15.0 [facility] Comment on above: Performed By: #### B MP #### [facility] [address] [place] [address] Dr. Grace Abdul Hematocrit (Bld) [Volume fraction] 33.6 % Critically low 36.0-48.0 [facility] Comment on above: Performed By: #### B MP #### [facility] [address] [place] [address] Dr. Grace Abdul Hemoglobin (Bld) [Mass/Vol] 11.8 g/dL Critically low 12.0-16.0 [facility] Comment on above: Performed By: #### B MP #### [facility] [address] [place] [address] Dr. Grace Abdul IG # 0.04 10e3/ul Critically high 0.00-0.03 [facility] Comment on above: Performed By: #### B MP #### [facility] [address] [place] [address] Dr. Grace Abdul IG % 0.7 % Critically high 0.0-0.5 [facility] Comment on above: Performed By: #### B MP #### [facility] [address] [place] [address] Dr. Grace Abdul LYMPH # 0.7 103/ul Critically low 1.2-3.8 [facility] Comment on above: Performed By: #### B MP #### [facility] [address] [place] [address] Dr. Grace Abdul Lymphocytes/100 WBC (Bld) 11.1 % Critically low 20.5-60.0 [facility] Comment on above: Performed By: #### B MP #### [facility] [address] [place] [address] Dr. Grace Abdul MANUAL DIFF REQ NO Normal [facility] Comment on above: Performed By: #### B MP #### [facility] [address] [place] [address] Dr. Grace Abdul MCH (RBC) [Entitic mass] 31.5 pg Normal 26.7-34.0 [facility] Comment on above: Performed By: #### B MP #### [facility] [address] [place] [address] Dr. Grace Abdul MCHC (RBC) [Mass/Vol] 35.1 g/dL Normal 29.9-35.2 [facility] Comment on above: Performed By: #### B MP #### [facility] [address] [place] [address] Dr. Grace Abdul MCV (RBC) [Entitic vol] 89.6 fL Normal 81.0-99.0 [facility] Comment on above: Performed By: #### B MP #### [facility] [address] [place] [address] Dr. Grace Abdul MONO # 0.9 103/ul Critically high 0.3-0.8 [facility] Comment on above: Performed By: #### B MP #### [facility] [address] [place] [address] Dr. Grace Abdul Monocytes/100 WBC (Bld) 14.0 % Critically high 1.7-12.0 [facility] Comment on above: Performed By: #### B MP #### [facility] [address] [place] [address] Dr. Grace Abdul NEUT # 4.5 103/ul Normal 1.4-6.5 [facility] Comment on above: Performed By: #### B MP #### [facility] [address] [place] [address] Dr. Grace Abdul Neutrophils/100 WBC (Bld) 73.5 % Normal 43.0-75.[address] [facility] Comment on above: Performed By: #### B MP #### [facility] [address] [place] [address] Dr. Grace Abdul Platelet mean volume (Bld) [Entitic vol] 9.3 fL Critically low 9.5-13.5 [facility] Comment on above: Performed By: #### B MP #### [facility] [address] [place] [address] Dr. Grace Abdul PLT 292 103/ul Normal 150-450 [facility] Comment on above: Performed By: #### B MP #### [facility] [address] [address] [address] Grace Abdul RBC 3.75 106/ul Critically low 4.20-5.40 [facility] Comment on above: Performed By: #### B MP #### [facility] [address] [address] [address] Grace Abdul WBC 6.1 103/ul Normal 4.0-11.0 [facility] Comment on above: Performed By: #### B MP #### [facility] [address] [address] [address] Grace Abdul CULTURE URINEon 11-16-2021 CULTURE URINE Culture Observations : LIGHT GROWTH OF MIXED GENITAL ALANIS. NO POTENTIAL PATHOGENS SEEN. Normal [facility] Comment on above: Performed By: #### U RCX ####[facility] [address] [address]Dr. Grace Abdul ER URINE PROFILEon Bilirubin Ql (U) Negative Normal NEGATIVE [facility] Comment on above: Performed By: #### C VDTBH #### [facility] [address] [place] [address] Dr. Grace Abdul Clarity (U) CLEAR Normal CLEAR [facility] Comment on above: Performed By: #### C VDTBH #### [facility] [address] [address] [address] Grace Abdul Color (U) LT. YELLOW Normal YELLOW [facility] Comment on above: Performed By: #### C VDTBH #### [facility] [address] [place] [address] Dr. Grace Abdul ERUAHD A micrscopic examination will be performed if indicated. Normal [facility] Comment on above: Performed By: #### C VDTBH #### [facility] [address] [address] [address] Grace Abdul Glucose Ql (U) Negative Normal NEGATIVE [facility] Comment on above: Performed By: #### C VDTBH #### [facility] [address] [place] [address] Dr. Grace Abdul Hemoglobin Ql (U) SMALL Abnormal NEGATIVE [facility] Comment on above: Performed By: #### C VDTBH #### [facility] [address] [place] [address] Dr. Grace Abdul Ketones Ql (U) 40 mg/dl Abnormal NEGATIVE [facility] Comment on above: Performed By: #### C VDTBH #### [facility] [address] [place] [address] Dr. Grace Abdul LEUKOCYTES SMALL Abnormal NEGATIVE [facility] Comment on above: Performed By: #### C VDTBH #### [facility] [address] [place] [address] Dr. Grace Abdul Nitrite Ql (U) Negative Normal NEGATIVE [facility] Comment on above: Performed By: #### C VDTBH #### [facility] [address] [place] [address] Dr. Grace Abdul pH (U) 7.0 [pH] Normal 5-9 [facility] Comment on above: Performed By: #### C VDTB #### [facility] [address] [place] [address] Dr. Grace Abdul SPEC GRAVITY 1.010 Normal 1.005-<=1.025 [facility] Comment on above: Performed By: #### C VDTBH #### [facility] [address] [place] [address] Dr. Grace Abdul UA PROTEIN Negative Normal NEGATIVE/ TRACE [facility] Comment on above: Performed By: #### C VDTBH #### [facility] [address] [place] [address] Dr. Grace Abdul UR MICRO IND INDICATED Normal [facility] Comment on above: Performed By: #### C VDTBH #### [facility] [address] [place] [address] Dr. Grace Abdul Urobilinogen Qn (U) 0.2 {Ashley'U}/dL Normal 0.2 - 1. 0 [facility] Comment on above: Performed By: #### C VDTBH #### [facility] [address] [place] [address] Dr. Grace Abdul MAGNESIUMon 11-16-2021 Magnesium [Mass/Vol] 1.8 mg/dL Normal 1.8-2.4 [facility] Comment on above: Performed By: #### C VDTBH #### [facility] [address] [place] [address] Dr. Grace Abdul PROF CHEM 8 (BAS METB)on Anion gap [Moles/Vol] 12.7 mmol/L Normal [facility] Comment on above: Performed By: #### B MP #### [facility] [address] [place] [address] Dr. Grace Abdul Calcium [Mass/Vol] 8.3 mg/dL Critically low 8.5-10.[address] [facility] Comment on above: Performed By: #### B MP #### [facility] [address] [place] [address] Dr. Grace Abdul CO2 [Moles/Vol] 24.4 mmol/L Normal 21.0-32.0 [facility] Comment on above: Performed By: #### B MP #### [facility] [address] [place] [address] Dr. Grace Abdul Creatinine [Mass/Vol] 1.16 mg/dL Critically high 0.55-1.02 [facility] Comment on above: Performed By: #### B MP #### [facility] [address] [place] [address] Dr. Grace Abdul EGFR-AF ARGENTINE 54 mL/min/1.73m2 Critically low >=60 [facility] Comment on above: Performed By: #### B MP #### [facility] [address] [place] [address] Dr. Grace Abdul EGFR-NON AF ARGENTINE 45 mL/min/1.73m2 Critically low >=60 [facility] Comment on above: Performed By: #### B MP #### [facility] [address] [place] [address] Dr. Grace Abdul Glucose [Mass/Vol] 116 mg/dL Critically high 74-106 [facility] Comment on above: Performed By: #### B MP #### [facility] [address] [address] [address] Grace Abdul Urea nitrogen [Mass/Vol] 20.0 mg/dL Critically high 7.0-18.0 [facility] Comment on above: Performed By: #### B MP #### [facility] [address] [address] [address] Grace Abdul Urea nitrogen/Creatinine [Mass ratio] 17.2 mg/mg Normal [facility] Comment on above: Performed By: #### B MP #### [facility] [address] [address] [address] Grace Abdul Anion gap [Moles/Vol] 10.0 mmol/L Normal [facility] Comment on above: Performed By: #### B MP #### [facility] [address] [address] [address] Grace Abdul Calcium [Mass/Vol] 8.8 mg/dL Normal 8.5-10.1 [facility] Comment on above: Performed By: #### B MP #### [facility] [address] [address] [address] Grace Abdul Chloride [Moles/Vol] 96 mmol/L Critically low 98-107 [facility] Comment on above: Performed By: #### B MP #### [facility] [address] [address] [address] Grace Abdul CO2 [Moles/Vol] 26.1 mmol/L Normal 21.0-32.0 [facility] Comment on above: Performed By: #### B MP #### [facility] [address] [address] [address] Grace Abdul Creatinine [Mass/Vol] 1.11 mg/dL Critically high 0.55-1.02 [facility] Comment on above: Performed By: #### B MP #### [facility] [address] [address] [address] Grace Abdul EGFR-AF ARGENTINE 57 mL/min/1.73m2 Critically low >=60 [facility] Comment on above: Performed By: #### B MP #### [facility] [address] [address] [address] Grace Abdul EGFR-NON AF ARGENTINE 47 mL/min/1.73m2 Critically low >=60 [facility] Comment on above: Performed By: #### B MP #### [facility] [address] [address] [address] Grace Abdul Glucose [Mass/Vol] 94 mg/dL Normal 74-106 [facility] Comment on above: Performed By: #### B MP #### [facility] [address] [address] [address] Grace Abdul Potassium [Moles/Vol] 3.1 mmol/L Critically low 3.5-5.1 [facility] Comment on above: Performed By: #### B MP #### [facility] [address] [address] [address] Grace Abdul Performed By: #### C VDTBH #### [facility] [address] [address] [address] Grace Abdul Sodium [Moles/Vol] 129 mmol/L Critically low 136-145 [facility] Comment on above: Performed By: #### B MP #### [facility] [address] [address] [address] Grace Abdul Urea nitrogen [Mass/Vol] 16.0 mg/dL Normal 7.0-18.0 [facility] Comment on above: Performed By: #### B MP #### [facility] [address] [address] [address] Grace Abdul Urea nitrogen/Creatinine [Mass ratio] 14.4 mg/mg Normal [facility] Comment on above: Performed By: #### B MP #### [facility] [address] [address] [address] Grace Abdul Anion gap [Moles/Vol] 12.6 mmol/L Normal [facility] Comment on above: Performed By: #### C VDTBH #### [facility] [address] [address] [address] Grace Abdul Calcium [Mass/Vol] 8.6 mg/dL Normal 8.5-10.1 [facility] Comment on above: Performed By: #### C VDTBH #### [facility] [address] [place] [address] Dr. Grace Abdul Chloride [Moles/Vol] 95 mmol/L Critically low 98-107 [facility] Comment on above: Performed By: #### B MP #### [facility] [address] [place] [address] Dr. Grace Abdul Performed By: #### C VDTBH #### [facility] [address] [place] [address] Dr. Grace Abdul CO2 [Moles/Vol] 22.5 mmol/L Normal 21.0-32.0 [facility] Comment on above: Performed By: #### C VDTBH #### [facility] [address] [place] [address] Dr. Grace Abdul Creatinine [Mass/Vol] 0.95 mg/dL Normal 0.55-1.02 [facility] Comment on above: Performed By: #### C VDTBH #### [facility] [address] [place] [address] Dr. Grace Abdul EGFR-AF ARGENTINE >60 Normal >=60 [facility] Comment on above: Performed By: #### C VDTBH #### [facility] [address] [place] [address] Dr. Grace Abdul EGFR-NON AF ARGENTINE 56 mL/min/1.73m2 Critically low >=60 [facility] Comment on above: Performed By: #### C VDTBH #### [facility] [address] [place] [address] Dr. Grace Abdul Glucose [Mass/Vol] 92 mg/dL Normal 74-106 [facility] Comment on above: Performed By: #### C VDTBH #### [facility] [address] [place] [address] Dr. Grace Abdul Sodium [Moles/Vol] 127 mmol/L Critically low 136-145 [facility] Comment on above: Performed By: #### C VDTBH #### [facility] [address] [place] [address] Dr. Grace Abdul Urea nitrogen [Mass/Vol] 18.0 mg/dL Normal 7.0-18.0 [facility] Comment on above: Performed By: #### C VDTBH #### [facility] [address] [place] [address] Dr. Grace Abdul Urea nitrogen/Creatinine [Mass ratio] 18.9 mg/mg Normal [facility] Comment on above: Performed By: #### C VDTBH #### [facility] [address] [place] [address] Dr. Grace Abdul URINE MICROSCOPIC ONLYon BACTERIA TRACE Abnormal NONE SEEN [facility] Comment on above: Performed By: #### C VDTBH #### [facility] [address] [place] [address] Dr. Grace Abdul Bacteria identified Cx Nom (U) INDICATED Normal [facility] Comment on above: Performed By: #### C VDTBH #### [facility] [address] [place] [address] Dr. Grace Abdul CAST NONE SEEN Normal NONE SEEN [facility] Comment on above: Performed By: #### C VDTBH #### [facility] [address] [place] [address] Dr. Grace Abdul Crystals LM Nom (Urine sed) NONE SEEN Normal NONE SEEN [facility] Comment on above: Performed By: #### C VDTBH #### [facility] [address] [place] [address] Dr. Grace Abdul Epithelial cells LM Ql (Urine sed) FEW Abnormal NONE SEEN /RARE [facility] Comment on above: Performed By: #### C VDTBH #### [facility] [address] [place] [address] Dr. Grace Abdul MUCOUS NONE SEEN Normal NONE SEEN [facility] Comment on above: Performed By: #### C VDTBH #### [facility] [address] [place] [address] Dr. Grace Abdul RBC 2-5 Abnormal 0-[address] [facility] Comment on above: Performed By: #### C VDTBH #### [facility] [address] [place] [address] Dr. Grace Abdul WBC 5-10 Abnormal NONE SEEN [facility] Comment on above: Performed By: #### C VDTBH #### [facility] [address] [place] [address] Dr. Grace Abdul AMYLASEon 11-15-2021 Amylase [Catalytic activity/Vol] 94 U/L Normal 25-[address] [facility] Comment on above: Performed By: #### C VDTBH #### [facility] [address] [place] [address] Dr. Grace Abdul BNPon 11-15-2021 Natriuretic peptide B (Bld) [Mass/Vol] 357.0 pg/mL Normal <=1,800.0 [facility] Comment on above: Performed By: #### C VDTBH #### [facility] [address] [place] [address] Dr. Grace Abdul CARDIAC JOVITA ADMITon 022 CK [Catalytic activity/Vol] 66 U/L Normal 26-192 [facility] Comment on above: Performed By: #### C VDTBH #### [facility] [address] [place] [address] Dr. Grace Abdul CK.MB [Mass/Vol] 2.19 ng/mL Normal <=3.60 [facility] Comment on above: Performed By: #### C VDTBH #### [facility] [address] [place] [address] Dr. Grace Abdul HSTROP 9.5 pg/mL Normal 4.0-51.3 [facility] Comment on above: Result Comment: CUT- OFF POINTS HAVE BEEN ESTABLISHED BASED ON THE FOURTH UNIVERSAL DEFINITIONS OF MYOCARDIAL INFARCTION. THE UPPER REFERENCE LIMIT (URL) OF TROPONIN, DEFINED THE 99TH PERCENTILE OF cTnI DISTRIBUTION IN A REFERENCE POPULATION, HAS BEEN CONFIRMED THE DECISION THRESHOLD FOR ID DIAGNOSIS. Performed By: #### C VDTBH #### [facility] [address] [place] [address] Dr. Grace Abdul JOHNNA 73 ng/mL Normal 9-[address] [facility] Comment on above: Performed By: #### C VDTB #### [facility] [address] [place] [address] Dr. Grace Abdul CBC AUTO DIFFon 11-15-2021 BASO # 0.0 103/ul Normal 0.0-0.1 [facility] Comment on above: Performed By: #### B MP #### [facility] [address] [place] [address] Dr. Grace Abdul Basophils/100 WBC (Bld) 0.1 % Critically low 0.2-2.0 [facility] Comment on above: Performed By: #### B MP #### [facility] [address] [place] [address] Dr. Grace Abdul EO # 0.0 103/ul Normal 0.0-0.7 [facility] Comment on above: Performed By: #### B MP #### [facility] [address] [place] [address] Dr. Grace Abdul Eosinophils/100 WBC (Bld) 0.1 % Critically low 0.9-7.0 [facility] Comment on above: Performed By: #### B MP #### [facility] [address] [place] [address] Dr. Grace Abdul Erythrocyte distribution width (RBC) [Ratio] 11.9 % Normal 11.0-15.0 [facility] Comment on above: Performed By: #### B MP #### [facility] [address] [place] [address] Dr. Garce Abdul Hematocrit (Bld) [Volume fraction] 36.6 % Normal 36.0-48.0 [facility] Comment on above: Performed By: #### B MP #### [facility] [address] [place] [address] Dr. Grace Abdul Hemoglobin (Bld) [Mass/Vol] 13.2 g/dL Normal 12.0-16.0 [facility] Comment on above: Performed By: #### B MP #### [facility] [address] [place], [place] [id number] Dr. Grace Abudl IG # 0.05 10e3/ul Critically high 0.00-0.03 [facility] Comment on above: Performed By: #### B MP #### [facility] [address] [place] [address] Dr. Grace Abdul IG % 0.7 % Critically high 0.0-0.5 [facility] Comment on above: Performed By: #### B MP #### [facility] [address] [place] [address] Dr. Grace Abdul LYMPH # 0.7 103/ul Critically low 1.2-3.8 [facility] Comment on above: Performed By: #### B MP #### [facility] [address] [place] [address] Dr. Grace Abdul Lymphocytes/100 WBC (Bld) 9.8 % Critically low 20.5-60.0 [facility] Comment on above: Performed By: #### B MP #### [facility] [address] [place] [address] Dr. Grace Abdul MANUAL DIFF REQ NO Normal [facility] Comment on above: Performed By: #### B MP #### [facility] [address] [place] [address] Dr. Grace Abdul MCH (RBC) [Entitic mass] 31.5 pg Normal 26.7-34.0 [facility] Comment on above: Performed By: #### B MP #### [facility] [address] [place] [address] Dr. Grace Abdul MCHC (RBC) [Mass/Vol] 36.1 g/dL Critically high 29.9-35.2 [facility] Comment on above: Performed By: #### B MP #### [facility] [address] [place] [address] Dr. Grace Abdul MCV (RBC) [Entitic vol] 87.4 fL Normal 81.0-99.0 [facility] Comment on above: Performed By: #### B MP #### [facility] [address] [place] [address] Dr. Grace Abdul MONO # 0.9 103/ul Critically high 0.3-0.8 [facility] Comment on above: Performed By: #### B MP #### [facility] [address] [address] [address] Grace Abdul Monocytes/100 WBC (Bld) 12.4 % Critically high 1.7-12.0 [facility] Comment on above: Performed By: #### B MP #### [facility] [address] [address] [address] Grace Abdul NEUT # 5.8 103/ul Normal 1.4-6.5 [facility] Comment on above: Performed By: #### B MP #### [facility] [address] [place] [address] Dr. Grace Abdul Neutrophils/100 WBC (Bld) 76.9 % Critically high 43.0-75.0 [facility] Comment on above: Performed By: #### B MP #### [facility] [address] [place] [address] Dr. Grace Abdul Platelet mean volume (Bld) [Entitic vol] 9.0 fL Critically low 9.5-13.5 [facility] Comment on above: Performed By: #### B MP #### [facility] [address] [place] [address] Dr. Grace Abdul PLT 361 103/ul Normal 150-[address] [facility] Comment on above: Performed By: #### B MP #### [facility] [address] [address] [address] Grace Abdul RBC 4.19 106/ul Critically low 4.20-5.40 [facility] Comment on above: Performed By: #### B MP #### [facility] [address] [place] [address] Dr. Grace Abdul WBC 7.6 103/ul Normal 4.0-11.0 [facility] Comment on above: Performed By: #### B MP #### [facility] [address] [place] [address] Dr. Grace Abdul [facility]on [facility]-23 SARS-CoV-2 (COVID-19) RNA LUISITO+probe Ql (Unsp spec) Not detected Normal NOT DETECTED [facility] Comment on above: Result Comment: [...] for this test is supported by the [place] of Health and Human Service's declaration that [...] used). Performed By: #### C VDTBH #### [facility] [address] [place] [address] Dr. Grace Abdul LIPASEon 11-15-2021 Lipase [Catalytic activity/Vol] 178.0 U/L Normal 73.0-393.0 [facility] Comment on above: Performed By: #### C VDTB #### [facility] [address] [place] [address] Dr. Grace Abdul PROF 14(COMP METB)on 022 Albumin [Mass/Vol] 4.1 g/dL Normal 3.4-5.0 [facility] Comment on above: Performed By: #### C VDTBH #### [facility] [address] [place] [address] Dr. Grace Abudl Albumin/Globulin [Mass ratio] 1.2 {ratio} Normal [facility] Comment on above: Performed By: #### C VDTBH #### [facility] [address] [place] [address] Dr. Grace Abdul ALP [Catalytic activity/Vol] 63 U/L Normal 46-[address] [facility] Comment on above: Performed By: #### C VDTBH #### [facility] [address] [address] [address] Grace Abdul ALT [Catalytic activity/Vol] 29 U/L Normal 14-59 [facility] Comment on above: Performed By: #### C VDTBH #### [facility] [address] [address] [address] Grace Abdul Anion gap [Moles/Vol] 14.8 mmol/L Normal [facility] Comment on above: Performed By: #### C VDTBH #### [facility] [address] [address] [address] Grace Abdul AST [Catalytic activity/Vol] 25 U/L Normal 15-37 [facility] Comment on above: Performed By: #### C VDTBH #### [facility] [address] [address] [address] Grace Abdul Bilirubin [Mass/Vol] 0.6 mg/dL Normal 0.2-1.0 [facility] Comment on above: Performed By: #### C VDTBH #### [facility] [address] [address] [address] Grace Abdul Calcium [Mass/Vol] 9.4 mg/dL Normal 8.5-10.1 [facility] Comment on above: Performed By: #### C VDTBH #### [facility] [address] [address] [address] Grace Abdul Chloride [Moles/Vol] 83 mmol/L Critically low 98-107 [facility] Comment on above: Performed By: #### C VDTBH #### [facility] [address] [address] [address] Grace Abdul CO2 [Moles/Vol] 24.4 mmol/L Normal 21.0-32.0 [facility] Comment on above: Performed By: #### C VDTBH #### [facility] [address] [address] [address] Grace Abdul Creatinine [Mass/Vol] 1.15 mg/dL Critically high 0.55-1.02 [facility] Comment on above: Performed By: #### C VDTBH #### [facility] [address] [address] [address] Grace Abdul EGFR-AF ARGENTINE 55 mL/min/1.73m2 Critically low >=60 [facility] Comment on above: Performed By: #### C VDTBH #### [facility] [address] [address] [address] Grace Abdul EGFR-NON AF ARGENTINE 45 mL/min/1.73m2 Critically low >=60 [facility] Comment on above: Performed By: #### C VDTBH #### [facility] [address] [address] [address] Grace Abdul Globulin (S) [Mass/Vol] 3.4 g/dL Normal [facility] Comment on above: Performed By: #### C VDTBH #### [facility] [address] [place] [address] Dr. Grace Abdul Glucose [Mass/Vol] 147 mg/dL Critically high 74-106 [facility] Comment on above: Performed By: #### C VDTBH #### [facility] [address] [address] [address] Grace Abdul Potassium [Moles/Vol] 3.2 mmol/L Critically low 3.5-5.1 [facility] Comment on above: Performed By: #### C VDTBH #### [facility] [address] [place] [address] Dr. Grace Abdul Protein [Mass/Vol] 7.5 g/dL Normal 6.4-8.2 [facility] Comment on above: Performed By: #### C VDTBH #### [facility] [address] [place] [address] Dr. Grace Abdul Urea nitrogen/Creatinine [Mass ratio] 21.7 mg/mg Normal [facility] Comment on above: Performed By: #### C VDTBH #### [facility] [address] [address] [address] Grace Abdul PROF CHEM 8 (BAS METB)on Anion gap [Moles/Vol] 13.6 mmol/L Normal [facility] Comment on above: Performed By: #### C VDTBH #### [facility] [address] [place] [address] Dr. Grace Abdul Calcium [Mass/Vol] 8.8 mg/dL Normal 8.5-10.1 [facility] Comment on above: Performed By: #### C VDTBH #### [facility] [address] [address] [address] Grace Abdul Chloride [Moles/Vol] 88 mmol/L Critically low 98-107 [facility] Comment on above: Performed By: #### C VDTBH #### [facility] [address] [place] [address] Dr. Grace Abdul CO2 [Moles/Vol] 21.8 mmol/L Normal 21.0-32.0 [facility] Comment on above: Performed By: #### C VDTBH #### [facility] [address] [place] [address] Dr. Grace Abdul Creatinine [Mass/Vol] 1.11 mg/dL Critically high 0.55-1.02 [facility] Comment on above: Performed By: #### C VDTBH #### [facility] [address] [place] [address] Dr. Grace Abdul EGFR-AF ARGENTINE 57 mL/min/1.73m2 Critically low >=60 [facility] Comment on above: Performed By: #### C VDTBH #### [facility] [address] [place] [address] Dr. Grace Abdul EGFR-NON AF ARGENTINE 47 mL/min/1.73m2 Critically low >=60 [facility] Comment on above: Performed By: #### C VDTBH #### [facility] [address] [place] [address] Dr. Grace Abdul Glucose [Mass/Vol] 132 mg/dL Critically high 74-106 [facility] Comment on above: Performed By: #### C VDTBH #### [facility] [address] [place] [address] Dr. Grace Abdul Potassium [Moles/Vol] 3.4 mmol/L Critically low 3.5-5.[address] [facility] Comment on above: Performed By: #### C VDTBH #### [facility] [address] [place] [address] Dr. Grace Abdul Sodium [Moles/Vol] 120 mmol/L Critically low 136-[address] [facility] Comment on above: Result Comment: Test Repeated. Critical Value Verified Performed By: #### C VDTBH #### [facility] [address] [place] [address] Dr. Grace Abdul Urea nitrogen [Mass/Vol] 25.0 mg/dL Critically high 7.0-18.0 [facility] Comment on above: Performed By: #### C VDTBH #### [facility] [address] [place] [address] Dr. Grace Abdul Urea nitrogen/Creatinine [Mass ratio] 22.5 mg/mg Normal [facility] Comment on above: Performed By: #### C VDTBH #### [facility] [address] [place] [address] Dr. Grace Abdul PROTIMEon 11-15-2021 INR Coag (PPP) [Relative time] 0.94 {INR} Normal [facility] Comment on above: Performed By: #### C VDTBH #### [facility] [address] [place] [address] Dr. Grace Abdul INR GUIDELINES SEE BELOW Normal [facility] Comment on above: Result Comment: DURAN RED INR: 2.0 - 3.0 CONDITIONS NOT LISTED BELOW 2.5 - 3.5 FOR PROSTHETIC HEART VALVE REPLACEMENT 2.5 - 3.5 RECURRENT THROMBOSIS Performed By: #### C VDTBH #### [facility] [address] [place] [address] Dr. Grace Abdul PT Coag (PPP) [Time] 10.2 s Normal 9.0-11.6 [facility] Comment on above: Performed By: #### C VDTBH #### [facility] [address] [place] [address] Dr. Grace Abdul XR ABD FLAT UP_PA [...] JARET LINARES Date: 2021-11-15 13:56 Normal [address] [facility] BNPon 11-11-2021 Natriuretic peptide B (Bld) [Mass/Vol] 546.0 pg/mL Normal <=1,800.0 [facility] Comment on above: Performed By: #### C MP, TSH, HSTROPN, BNP ####[facility] [id number] [address] Grace Abdul CBC AUTO DIFFon 11-11-2021 BASO # 0.0 103/ul Normal 0.0-0.1 [facility] Comment on above: Performed By: #### C BC #### [facility] [address] [address] [address] Grace Abdul Basophils/100 WBC (Bld) 0.3 % Normal 0.2-2.[address] [facility] Comment on above: Performed By: #### C BC #### [facility] [address] [address] [address] Grace Abdul EO # 0.0 103/ul Normal 0.0-0.[address] [facility] Comment on above: Performed By: #### C BC #### [facility] [address] [address] [address] Grace Abdul Eosinophils/100 WBC (Bld) 0.5 % Critically low 0.9-7.0 [facility] Comment on above: Performed By: #### C BC #### [facility] [address] [place] [address] Dr. Grace Abdul Erythrocyte distribution width (RBC) [Ratio] 12.9 % Normal 11.0-15.0 [facility] Comment on above: Performed By: #### C BC #### [facility] [address] [place] [address] Dr. Grace Abdul Hematocrit (Bld) [Volume fraction] 36.1 % Normal 36.0-48.0 [facility] Comment on above: Performed By: #### C BC #### [facility] [address] [place] [address] Dr. Grace Abdul Hemoglobin (Bld) [Mass/Vol] 12.3 g/dL Normal 12.0-16.0 [facility] Comment on above: Performed By: #### C BC #### [facility] Laboratory [address] [place] [address] Dr. Grace Abdul IG # 0.01 10e3/ul Normal 0.00-0.03 [facility] Comment on above: Performed By: #### C BC #### [facility] Laboratory [address] [place] [address] Dr. Grace Abdul IG % 0.3 % Normal 0.0-0.5 [facility] Comment on above: Performed By: #### C BC #### [facility] Laboratory [address] [place] [address] Dr. Grace Abdul LYMPH # 0.6 103/ul Critically low 1.2-3.8 The [facility] Comment on above: Performed By: #### C BC #### [facility] Laboratory [address] [place] [address] Dr. Grace Abdul Lymphocytes/100 WBC (Bld) 14.8 % Critically low 20.5-60.[address] [facility] Comment on above: Performed By: #### C BC #### [facility] Laboratory [address] [place] [address] Dr. Grace Abdul MANUAL DIFF REQ NO Normal [facility] Comment on above: Performed By: #### C BC #### [facility] Laboratory [address] [place] [address] Dr. Grace Abdul MCH (RBC) [Entitic mass] 31.5 pg Normal 26.7-34.0 [facility] Comment on above: Performed By: #### C BC #### [facility] Laboratory [address] [place] [address] Dr. Grace Abdul MCHC (RBC) [Mass/Vol] 34.1 g/dL Normal 29.9-35.2 [facility] Comment on above: Performed By: #### C BC #### [facility] Laboratory [address] [place] [address] Dr. Grace Abdul MCV (RBC) [Entitic vol] 92.6 fL Normal 81.0-99.0 [facility] Comment on above: Performed By: #### C BC #### [facility] Laboratory [address] [place] [address] Dr. Grace Abdul MONO # 0.5 103/ul Normal 0.3-0.8 [facility] Comment on above: Performed By: #### C BC #### [facility] Laboratory [address] [place] [address] Dr. Grace Abdul Monocytes/100 WBC (Bld) 13.5 % Critically high 1.7-12.0 [facility] Comment on above: Performed By: #### C BC #### [facility] Laboratory [address] [place] [address] Dr. Grace Abdul NEUT # 2.7 103/ul Normal 1.4-6.[address] [facility] Comment on above: Performed By: #### C BC #### [facility] Laboratory [address] [place] [address] Dr. Grace Abdul Neutrophils/100 WBC (Bld) 70.6 % Normal 43.0-75.[address] [facility] Comment on above: Performed By: #### C BC #### [facility] Laboratory [address] [place] [address] Dr. Grace Abdul Platelet mean volume (Bld) [Entitic vol] 9.2 fL Critically low 9.5-13.[address] [facility] Comment on above: Performed By: #### C BC #### [facility] Laboratory [address] [place] [address] Dr. Grace Abdul PLT 279 103/ul Normal 150-450 [facility] Comment on above: Performed By: #### C BC #### [facility] Laboratory [address] [address] [address] Grace Abdul RBC 3.90 106/ul Critically low 4.20-5.40 [facility] Comment on above: Performed By: #### C BC #### [facility] Laboratory [address] [address] [address] Grace Abdul WBC 3.9 103/ul Critically low 4.0-11.0 [facility] Comment on above: Performed By: #### C BC #### [facility] Laboratory [address] [place] [address] Dr. Grace Abdul PROF 14(COMP METB)on 022 Albumin [Mass/Vol] 3.3 g/dL Critically low 3.4-5.0 [facility] Comment on above: Performed By: #### C MP, TSH, HSTROPN, BNP #### [facility] Laboratory [address] [place] [address] Dr. Grace Abdul Albumin/Globulin [Mass ratio] 1.2 {ratio} [facility] Comment on above: Performed By: #### C MP, TSH, HSTROPN, BNP #### [facility] Laboratory [address] [place] [address] Dr. Grace Abdul ALP [Catalytic activity/Vol] 60 U/L Normal 46-[address] [facility] Comment on above: Performed By: #### C MP, TSH, HSTROPN, BNP #### [facility] Laboratory [address] [place] [address] Dr. Grace Abdul ALT [Catalytic activity/Vol] 26 U/L Normal 14-59 [facility] Comment on above: Performed By: #### C MP, TSH, HSTROPN, BNP #### [facility] Laboratory [address] [address] [address] Grace Abdul Anion gap [Moles/Vol] 14.8 mmol/L Normal [facility] Comment on above: Performed By: #### C MP, TSH, HSTROPN, BNP #### [facility] Laboratory [address] [address] [address] Grace Abdul AST [Catalytic activity/Vol] 20 U/L Normal 15-37 [facility] Comment on above: Performed By: #### C MP, TSH, HSTROPN, BNP #### [facility] Laboratory [address] [place] [address] Dr. Grace Abdul Bilirubin [Mass/Vol] 0.3 mg/dL Normal 0.2-1.0 [facility] Comment on above: Performed By: #### C MP, TSH, HSTROPN, BNP #### [facility] Laboratory [address] [place] [address] Dr. Grace Abdul Calcium [Mass/Vol] 8.2 mg/dL Critically low 8.5-10.[address] [facility] Comment on above: Performed By: #### C MP, TSH, HSTROPN, BNP #### [facility] Laboratory [address] [place] [address] Dr. Grace Abdul Chloride [Moles/Vol] 100 mmol/L Normal 98-[address] [facility] Comment on above: Performed By: #### C MP, TSH, HSTROPN, BNP #### [facility] Laboratory [address] [place] [address] Dr. Grace Abdul CO2 [Moles/Vol] 23.8 mmol/L Normal 21.0-32.0 [facility] Comment on above: Performed By: #### C MP, TSH, HSTROPN, BNP #### [facility] Laboratory [address] [place] [address] Dr. Grace Abdul Creatinine [Mass/Vol] 1.27 mg/dL Critically high 0.55-1.02 [facility] Comment on above: Performed By: #### C MP, TSH, HSTROPN, BNP #### [facility] Laboratory [address] [place] [address] Dr. Grace Abdul EGFR-AF ARGENTINE 49 mL/min/1.73m2 Critically low >=[address] [facility] Comment on above: Performed By: #### C MP, TSH, HSTROPN, BNP #### [facility] Laboratory [address] [place] [address] Dr. Grace Abdul EGFR-NON AF ARGENTINE 40 mL/min/1.73m2 Critically low >=60 [facility] Comment on above: Performed By: #### C MP, TSH, HSTROPN, BNP #### [facility] Laboratory [address] [place] [address] Dr. Grace Abdul Globulin (S) [Mass/Vol] 2.7 g/dL Normal [facility] Comment on above: Performed By: #### C MP, TSH, HSTROPN, BNP #### [facility] Laboratory [address] [place] [address] Dr. Grace Abdul Glucose [Mass/Vol] 116 mg/dL Critically high 74-106 [facility] Comment on above: Performed By: #### C MP, TSH, HSTROPN, BNP #### [facility] Laboratory [address] [place] [address] Dr. Grace Abdul Potassium [Moles/Vol] 3.6 mmol/L Normal 3.5-5.1 [facility] Comment on above: Performed By: #### C MP, TSH, HSTROPN, BNP #### [facility] Laboratory [address] [place] [address] Dr. Grace Abdul Protein [Mass/Vol] 6.0 g/dL Critically low 6.4-8.2 Th [facility] Comment on above: Performed By: #### C MP, TSH, HSTROPN, BNP #### [facility] Laboratory [address] [place] [address] Dr. Grace Abdul Sodium [Moles/Vol] 135 mmol/L Critically low 136-145 Th [facility] Comment on above: Performed By: #### C MP, TSH, HSTROPN, BNP #### [facility] Laboratory [address] [place] [address] Dr. Grace Abdul Urea nitrogen [Mass/Vol] 25.0 mg/dL Critically high 7.0-18.0 [facility] Comment on above: Performed By: #### C MP, TSH, HSTROPN, BNP #### [facility] Laboratory [address] [place] [address] Dr. Grace Abdul Urea nitrogen/Creatinine [Mass ratio] 19.7 mg/mg Normal The [facility] Comment on above: Performed By: #### C MP, TSH, HSTROPN, BNP #### [facility] Laboratory [address] [place] [address] Dr. Grace Abdul PROTIMEon 11-11-2021 INR Coag (PPP) [Relative time] 0.95 {INR} Normal The [facility] Comment on above: Performed By: #### B MP #### [facility] Laboratory [address] [place] [address] Dr. Grace Abdul INR GUIDELINES SEE BELOW Normal The [facility] Comment on above: Result Comment: DURAN RED INR: 2.0 - 3.0 CONDITIONS NOT LISTED BELOW 2.5 - 3.5 FOR PROSTHETIC HEART VALVE REPLACEMENT 2.5 - 3.5 RECURRENT THROMBOSIS Performed By: #### B MP #### [facility] Laboratory [address] [place] [address] Dr. Grace Abdul PT Coag (PPP) [Time] 10.3 s Normal 9.0-11.[address] [facility] Comment on above: Performed By: #### B MP #### [facility] Laboratory [address] [place] [address] Dr. Grace Abdul PTTon 11-11-2021 aPTT Coag (Bld) [Time] 21.3 s Critically low 22.3-36.[address] [facility] Comment on above: Performed By: #### B MP #### [facility] Laboratory [address] [place] [address] Dr. Grace Abdul TROPONIN, HIGH SENSITIVITYon 11-11-2021 HSTROP 6.5 pg/mL Normal 4.0-51.[address] [facility] Comment on above: Result Comment: CUT- OFF POINTS HAVE BEEN ESTABLISHED BASED ON THE FOURTH UNIVERSAL DEFINITIONS OF MYOCARDIAL INFARCTION. THE UPPER REFERENCE LIMIT (URL) OF TROPONIN, DEFINED THE 99TH PERCENTILE OF cTnI DISTRIBUTION IN A REFERENCE POPULATION, HAS BEEN CONFIRMED THE DECISION THRESHOLD FOR ID DIAGNOSIS. Performed By: #### C MP, TSH, HSTROPN, BNP #### [facility] Laboratory [address] [place], [place] [address] Dr. Grace Abdul TSHon 11-11-2021 TSH 2.140 uIU/mL Normal 0.358-3.740 [facility] Comment on above: Performed By: #### C MP, TSH, HSTROPN, BNP ####[facility] [id number] [place], [place] [address]AwDr. Grace Abdul XR CHEST 1 Von 11-11-2021 [...] KRANTHI CONNORS Date: 2021-11-11 13:34 Normal [address] [facility] CARDIAC JOVITA ADMITon 022 CK [Catalytic activity/Vol] 89 U/L Normal 26-[address] [facility] Comment on above: Performed By: #### C VDTBH #### [facility] Laboratory [address] [address] [address] Grace Abdul CK.MB [Mass/Vol] 1.92 ng/mL Normal <=3.60 [facility] Comment on above: Performed By: #### C VDTBH #### [facility] Laboratory [address] [address] [address] Grace Abdul HSTROP 5.7 pg/mL Normal 4.0-51.[address] [facility] Comment on above: Result Comment: CUT- OFF POINTS HAVE BEEN ESTABLISHED BASED ON THE FOURTH UNIVERSAL DEFINITIONS OF MYOCARDIAL INFARCTION. THE UPPER REFERENCE LIMIT (URL) OF TROPONIN, DEFINED THE 99TH PERCENTILE OF cTnI DISTRIBUTION IN A REFERENCE POPULATION, HAS BEEN CONFIRMED THE DECISION THRESHOLD FOR ID DIAGNOSIS. Performed By: #### C VDTBH #### [facility] Laboratory [address] [address] [address] Grace Abdul JOHNNA 86 ng/mL Critically high 9-82 [facility] Comment on above: Performed By: #### C VDTBH #### [facility] Laboratory [address] [place] [address] Dr. Graec Abdul CBC AUTO DIFFon 09-13-2021 BASO # 0.0 103/ul Normal 0.0-0.1 [facility] Comment on above: Performed By: #### C VDTBH #### [facility] Laboratory [address] [place] [address] Dr. Grace Abdul Basophils/100 WBC (Bld) 0.5 % Normal 0.2-2.0 [facility] Comment on above: Performed By: #### C VDTBH #### [facility] Laboratory [address] [place] [address] Dr. Grace Abdul EO # 0.0 103/ul Normal 0.0-0.7 [facility] Comment on above: Performed By: #### C VDTBH #### [facility] Laboratory [address] [place] [address] Dr. Grace Abdul Eosinophils/100 WBC (Bld) 0.7 % Critically low 0.9-7.0 [facility] Comment on above: Performed By: #### C VDTBH #### [facility] Laboratory [address] [place] [address] Dr. Grace Abdul Erythrocyte distribution width (RBC) [Ratio] 13.2 % Normal 11.0-15.0 [facility] Comment on above: Performed By: #### C VDTBH #### [facility] Laboratory [address] [place] [address] Dr. Grace Abdul Hematocrit (Bld) [Volume fraction] 34.8 % Critically low 36.0-48.[address] [facility] Comment on above: Performed By: #### C VDTBH #### [facility] Laboratory [address] [place] [address] Dr. Grace Abdul Hemoglobin (Bld) [Mass/Vol] 11.9 g/dL Critically low 12.0-16.[address] [facility] Comment on above: Performed By: #### C VDTBH #### [facility] Laboratory [address] [place] [address] Dr. Grace Abdul IG # 0.01 10e3/ul Normal 0.00-0.03 [facility] Comment on above: Performed By: #### C VDTBH #### [facility] Laboratory [address] [place] [address] Dr. Grace Abdul IG % 0.2 % Normal 0.0-0.5 [facility] Comment on above: Performed By: #### C VDTBH #### [facility] Laboratory [address] [place] [address] Dr. Grace Abdul LYMPH # 0.6 103/ul Critically low 1.2-3.8 [facility] Comment on above: Performed By: #### C VDTBH #### [facility] Laboratory [address] [place] [address] Dr. Grace Abdul Lymphocytes/100 WBC (Bld) 14.2 % Critically low 20.5-60.0 [facility] Comment on above: Performed By: #### C VDTBH #### [facility] Laboratory [address] [place] [address] Dr. Grace Abdul MANUAL DIFF REQ NO Normal [facility] Comment on above: Performed By: #### C VDTBH #### [facility] Laboratory [address] [place] [address] Dr. Grace Abdul MCH (RBC) [Entitic mass] 31.5 pg Normal 26.7-34.0 [facility] Comment on above: Performed By: #### C VDTBH #### [facility] Laboratory [address] [place] [address] Dr. Grace Abdul MCHC (RBC) [Mass/Vol] 34.2 g/dL Normal 29.9-35.2 [facility] Comment on above: Performed By: #### C VDTBH #### [facility] Laboratory [address] [place] [address] Dr. Grace Abdul MCV (RBC) [Entitic vol] 92.1 fL Normal 81.0-99.0 [facility] Comment on above: Performed By: #### C VDTBH #### [facility] Laboratory [address] [address] [address] Grace Abdul MONO # 0.7 103/ul Normal 0.3-0.8 [facility] Comment on above: Performed By: #### C VDTBH #### [facility] Laboratory [address] [place] [address] Dr. Grace Abdul Monocytes/100 WBC (Bld) 15.6 % Critically high 1.7-12.0 [facility] Comment on above: Performed By: #### C VDTBH #### [facility] [address] [place] [address] Dr. Grace Abdul NEUT # 3.0 103/ul Normal 1.4-6.5 [facility] Comment on above: Performed By: #### C VDTBH #### [facility] Laboratory [address] [place] [address] Dr. Grace Abdul Neutrophils/100 WBC (Bld) 68.8 % Normal 43.0-75.0 [facility] Comment on above: Performed By: #### C VDTBH #### [facility] [address] [place] [address] Dr. Grace Abdul Platelet mean volume (Bld) [Entitic vol] 9.5 fL Normal 9.5-13.5 [facility] Comment on above: Performed By: #### C VDTBH #### [facility] [address] [place] [address] Dr. Grace Abdul PLT 303 103/ul Normal 150-[address] [facility] Comment on above: Performed By: #### C VDTBH #### [facility] [address] [place] [address] Dr. Grace Abdul RBC 3.78 106/ul Critically low 4.20-5.40 [facility] Comment on above: Performed By: #### C VDTBH #### [facility] [address] [place] [address] Dr. Grace Abdul WBC 4.4 103/ul Normal 4.0-11.0 [facility] Comment on above: Performed By: #### C VDTB #### [facility] Laboratory [address] [address] [address] HEAD WO CONon [...] KRANTHI CONNORS Date: 2021-09-13 13:24 Normal [address] [facility]on 08-22 SARS-CoV-2 (COVID-19) RNA LUISITO+probe Ql (Unsp spec) Not detected Normal NOT DETECTED [facility] Comment on above: Result Comment: [...] for this test is supported by the Enforcement Manager of Health and Human Service's declaration that [...] used). Performed By: #### C VDTB #### [facility] Laboratory [address] [place] [address] Dr. Grace Abdul ER URINE PROFILEon 2 Bilirubin Ql (U) Negative Normal NEGATIVE [facility] Comment on above: Performed By: #### B MP #### [facility] Laboratory [address] [place] [address] Dr. Grace Abdul Clarity (U) CLEAR Normal CLEAR [facility] Comment on above: Performed By: #### B MP #### [facility] Laboratory [address] [place] [address] Dr. Grace Abdul Color (U) LT. YELLOW Normal YELLOW [facility] Comment on above: Performed By: #### B MP #### [facility] Laboratory [address] [place] [address] Dr. Grace HIGGINS A micrscopic examination will be performed if indicated. Normal The [facility] Comment on above: Performed By: #### B MP #### [facility] Laboratory [address] [place] [address] Dr. Grace Abdul Glucose Ql (U) Negative Normal NEGATIVE [facility] Comment on above: Performed By: #### B MP #### [facility] Laboratory [address] [place] [address] Dr. Grace Adbul Hemoglobin Ql (U) Negative Normal NEGATIVE [facility] Comment on above: Performed By: #### B MP #### [facility] Laboratory [address] [place] [address] Dr. Grace Abdul Ketones Ql (U) TRACE Abnormal NEGATIVE [facility] Comment on above: Performed By: #### B MP #### [facility] Laboratory [address] [place] [address] Dr. Grace Abdul LEUKOCYTES TRACE Abnormal NEGATIVE [facility] Comment on above: Performed By: #### B MP #### [facility] [address] [place] [address] Dr. Grace Abdul Nitrite Ql (U) Negative Normal NEGATIVE [facility] Comment on above: Performed By: #### B MP #### [facility] Laboratory [address] [place] [address] Dr. Grace Abdul pH (U) 8.0 [pH] Normal 5-9 [facility] Comment on above: Performed By: #### B MP #### [facility] Laboratory [address] [place] [address] Dr. Grace Abdul SPEC GRAVITY 1.015 Normal 1.005-<=1.025 [facility] Comment on above: Performed By: #### B MP #### [facility] Laboratory [address] [place] [address] Dr. Grcae Abdul UA PROTEIN Negative Normal NEGATIVE/ TRACE [facility] Comment on above: Performed By: #### B MP #### [facility] Laboratory [address] [place] [address] Dr. Grace Abdul UR MICRO IND INDICATED Normal [facility] Comment on above: Performed By: #### B MP #### [facility] Laboratory [address] [place] [address] Dr. Grace Abdul Urobilinogen Qn (U) 0.2 {Ashley'U}/dL Normal 0.2 - 1. 0 [facility] Comment on above: Performed By: #### B MP #### [facility] Laboratory [address] [place] [address] Dr. Grace Abdul PROF 14(COMP METB)on 022 Albumin [Mass/Vol] 3.8 g/dL Normal 3.4-5.0 [facility] Comment on above: Performed By: #### C VDTBH #### [facility] Laboratory [address] [place] [address] Dr. Grace Abdul Albumin/Globulin [Mass ratio] 1.4 {ratio} Normal [facility] Comment on above: Performed By: #### C VDTBH #### [facility] [address] [place] [address] Dr. Grace Abdul ALP [Catalytic activity/Vol] 53 U/L Normal 46-116 [facility] Comment on above: Performed By: #### C VDTBH #### [facility] [address] [place] [address] Dr. Grace Abdul ALT [Catalytic activity/Vol] 20 U/L Normal 14-59 [facility] Comment on above: Performed By: #### C VDTBH #### [facility] Laboratory [address] [address] [address] Grace Abdul Anion gap [Moles/Vol] 12.0 mmol/L Normal [facility] Comment on above: Performed By: #### C VDTBH #### [facility] [address] [address] [address] Grace Abdul AST [Catalytic activity/Vol] 18 U/L Normal 15-37 [facility] Comment on above: Performed By: #### C VDTBH #### [facility] [address] [address] [address] Grace Abdul Bilirubin [Mass/Vol] 0.4 mg/dL Normal 0.2-1.0 [facility] Comment on above: Performed By: #### C VDTBH #### [facility] [address] [address] [address] Grace Abdul Calcium [Mass/Vol] 9.5 mg/dL Normal 8.5-10.1 [facility] Comment on above: Performed By: #### C VDTBH #### [facility] [address] [address] [address] Grace Abdul Chloride [Moles/Vol] 99 mmol/L Normal 98-[address] [facility] Comment on above: Performed By: #### C VDTBH #### [facility] [address] [address] [address] Grace Abdul CO2 [Moles/Vol] 28.1 mmol/L Normal 21.0-32.0 [facility] Comment on above: Performed By: #### C VDTBH #### [facility] [address] [address] [address] Grace Abdul Creatinine [Mass/Vol] 1.25 mg/dL Critically high 0.55-1.02 [facility] Comment on above: Performed By: #### C VDTBH #### [facility] [address] [address] [address] Grace Abdul EGFR-AF ARGENTINE 50 mL/min/1.73m2 Critically low >=60 [facility] Comment on above: Performed By: #### C VDTBH #### [facility] [address] [address] [address] Graec Abdul EGFR-NON AF ARGENTINE 41 mL/min/1.73m2 Critically low >=60 [facility] Comment on above: Performed By: #### C VDTBH #### [facility] [address] [address] [address] Grace Abdul Globulin (S) [Mass/Vol] 2.7 g/dL Normal [facility] Comment on above: Performed By: #### C VDTBH #### [facility] [address] [address] [address] Grace Abdul Glucose [Mass/Vol] 131 mg/dL Critically high 74-106 T [facility] Comment on above: Performed By: #### C VDTBH #### [facility] [address] [address] [address] Grace Abdul Potassium [Moles/Vol] 4.1 mmol/L Normal 3.5-5.1 [facility] Comment on above: Performed By: #### C VDTBH #### [facility] [address] [place] [address] Dr. Grace Abdul Protein [Mass/Vol] 6.5 g/dL Normal 6.4-8.2 [facility] Comment on above: Performed By: #### C VDTBH #### [facility] [address] [place] [address] Dr. Grace Abdul Sodium [Moles/Vol] 135 mmol/L Critically low 136-145 Th [facility] Comment on above: Performed By: #### C VDTBH #### [facility] [address] [address] [address] Grace Abdul Urea nitrogen [Mass/Vol] 33.0 mg/dL Critically high 7.0-18.0 [facility] Comment on above: Performed By: #### C VDTBH #### [facility] [address] [place] [address] Dr. Grace Abdul Urea nitrogen/Creatinine [Mass ratio] 26.4 mg/mg Normal [facility] Comment on above: Performed By: #### C VDTBH #### [facility] [address] [place] [address] Dr. Grace Abdul URINE MICROSCOPIC ONLYon BACTERIA NONE SEEN Normal NONE SEEN [facility] Comment on above: Performed By: #### C BC #### [facility] [address] [place] [address] Dr. Grace Abdul Bacteria identified Cx Nom (U) NOT INDICATED Normal [facility] Comment on above: Performed By: #### C BC #### [facility] [address] [place] [address] Dr. Grace Abdul CAST NONE SEEN Normal NONE SEEN [facility] Comment on above: Performed By: #### C BC #### [facility] [address] [place] [address] Dr. Grace Abdul Crystals LM Nom (Urine sed) NONE SEEN Normal NONE SEEN [facility] Comment on above: Performed By: #### C BC #### [facility] [address] [place] [address] Dr. Grace Abdul Epithelial cells LM Ql (Urine sed) FEW Abnormal NONE SEEN /RARE [facility] Comment on above: Performed By: #### C BC #### [facility] [address] [place] [address] Dr. Grace Abdul MUCOUS NONE SEEN Normal NONE SEEN [facility] Comment on above: Performed By: #### C BC #### [facility] [address] [place] [address] Dr. Grace Abdul RBC 0-2 Normal 0-[address] [facility] Comment on above: Performed By: #### C BC #### [facility] [address] [place] [address] Dr. Grace Abdul WBC 0-2 Abnormal NONE SEEN [facility] Comment on above: Performed By: #### C BC #### [facility] [address] [place] [address] Dr. Grace Abdul XR CHEST 1 Von [...] by: KRANTHI CONNORS Date: 2021-09-13 13:19 Normal [facility] CERV SP W/OBLS/FLEX/EXT 6 OR >on 12-12-2020 CERV SP W/OBLS/FLEX/EXT 6 OR > STUDY: CERV SP W/OBLS/FLEX/EXT 6 OR >; 12/12/2020 9:40 am INDICATION: NECK PAIN. COMPARISON: None. ACCESSION NUMBER(S): [id number] ORDERING CLINICIAN: Aiden Younger TECHNIQUE: AP, lateral, [...] findings. Dense left carotid artery calcifications. Normal [facility] Vital Signs Date Time Vital Sign Value Performing Clinician Aimee pollock 12-06-2023 11:32-0400 Body height 147.3 cm Armando Morales DO Work Phone: [facility] 12-06-2023 11:32-0400 Body mass index (BMI) [Ratio] 34.28 kg/m2 Armando Morales DO Work Phone: [facility] 12-06-2023 11:32-0400 Body weight 74.39 kg Armando Morales DO Work Phone: [facility] 12-06-2023 11:32-0400 Diastolic blood pressure 82 mm[Hg] Armando Morales DO Work Phone: [facility] 12-06-2023 11:32-0400 Systolic blood pressure 142 mm[Hg] Armando Morales DO Work Phone: [facility] 09-21-2022 12:51-0400 Diastolic blood pressure 60 mm[Hg] Carolyn Vanegas MD Work Phone: [facility] 09-21-2022 12:51-0400 Heart rate 67 /min Carolyn Vanegas MD Work Phone: [facility] 09-21-2022 12:51-0400 Systolic blood pressure 153 mm[Hg] Carolyn Vanegas MD Work Phone: [facility] 05-14-2022 14:24-0400 Diastolic blood pressure 87 mm[Hg] Marty Dozier DO Work Phone: [facility] 05-14-2022 14:24-0400 Heart rate 72 /min Marty Dozier DO Work Phone: [facility] 05-14-2022 14:24-0400 Systolic blood pressure 158 mm[Hg] Marty Galavizis DO Work Phone: [facility] 05-14-2022 14:22-0400 Body height 152.4 cm Marty Galavizis DO Work Phone: [facility] 05-14-2022 14:22-0400 Body weight 76.39 kg Marty Galavizis DO Work Phone: [facility] 05-14-2022 14:22-0400 SaO2% (BldA) [Mass fraction] 99 % Marty Galavizis DO Work Phone: [facility] Encounters Encounter Date Encounter Type Care Provider Facility Start: 12-06-2023 End: 12-06-2023 Patient encounter procedure Armando Morales DO Work Phone: [facility] Comment on above: Encounter for gyneco logical examination without abnormal finding; Encounter for Papanicolaou smear of vagina; Breast cancer screening by mammogram Start: 12-06-2023 End: 12-06-2023 Patient encounter status Armando Aly Morales DO Work Phone: [facility] Start: 12-06-2023 End: 12-06-2023 ambulatory ARMANDO MORALES Not Available Start: 09-26-2023 End: 09-26-2023 ambulatory Lyn Quiñones MD Facility: [facility] Start: 09-12-2023 End: 09-12-2023 ambulatory Lyn Quiñones MD Facility:[facility] Start: 08-18-2023 End: 08-18-2023 ambulatory Galina Rogers Facility:[facility] Start: 08-08-2023 End: 08-08-2023 ambulatory COLETTE MATOS [...] Start: 09-21-2022 End: 09-21-2022 ambulatory GALINA ROGERS Facility:[facility] Start: 09-21-2022 End: 09-21-2022 Patient encounter [...] Start: 05-14-2022 End: 05-14-2022 ambulatory MARTY DOZIER Facility:[facility] Start: 05-14-2022 End: 05-14-2022 Patient encounter [...] 09-13-2021 End: 09-13-2021 ambulatory ROGE ALEJO . Facility: Start: 09-12-2017 End: 09-13-2017 Patient encounter DEFAULT PHYSICIAN Facility:[facility] Plan of Treatment Date Care Activity Detail Author Start: 12-10-2025 End: 12-10-2025 Patient encounter procedure 12/10/2025 11:30 AM EDT Office Visit [facility] [address] [place] [id number] Armando Morales, DO [address] [place], [place] [id number] [facility] Start: 10-23-2023 Influenza vaccination Influenza Vacc ine (#1) [facility] Start: 10-22-2022 Influenza vaccination INFLUENZA (#1) [facility] Start: 04-11-2022 COVID-19 VACCINE (6 - Moderna series) COVID-19 VACCINE (6 - Moderna series) [facility] Start: 02-21-2022 ADVANCE DIRECTIVE DISCUSSION ADVANCE DIRECTIVE DISCUSSION [facility] Start: 02-21-2022 DEPRESSION ASSESSMENT DEPRESSION ASS ESSMENT [facility] Start: 11-12-2017 Pneumococcal Vaccine : 65+ Years (2 of 2 - PPSV23 or PCV20) Pneumococcal Vaccine: 65+ Years (2 of 2 - PPSV23 or PCV20) [facility] Start: 11-12-2017 PNEUMOCOCCAL: 65+ (2 - PPSV23 if available, else PCV20) PNEUMOCOCCAL: 65+ (2 - PPSV23 if available, else PCV20) [facility] Start: 11-12-2017 PNEUMOCOCCAL: 65+ (2 - PPSV23 or PCV20) PNEUMOCOCCAL: 65+ (2 - PPSV23 or PCV20) [facility] Start: 07-22-2017 SHINGRIX VACCINE (2 of 3) SHINGRIX VACCINE (2 of 3) [facility] Start: 04-30-2004 BONE DENSITY BONE DENSITY [facility] Start: 04-30-1984 DIABETES SCREEN DIABETES SCREEN [facility] Start: 04-30-1958 Urine microalbumin profile DTAP,TDAP,TD (1 - Tdap) [facility] IGP,rfxAptima HPV all,16/18,45 IGP,rfxAptima HPV all,16/18,45 Pathology and Cytology Routine Encounter for Papanicolaou smear of vagina Ordered: 12/06/2023 [facility] Work Phone: Comment on above: Ordered: 12/06/2023 Immunizations Immunization Date Immunization Notes Care Provider Armando schwartz 12-09-2021 Moderna Bivalent Gama ster Vaccination Armando Morales DO Work Phone: [facility] 12-02-2021 Influenza, injectabl e, Madin [place] Canine Kidney, preservative free, quadrivalent Marty Dozier DO Work Phone: [facility] 12-02-2021 influenza virus vacc ine, unspecified formulation Armando Morales DO Work Phone: [facility] 11-28-2020 influenza virus vacc ine, unspecified formulation Marty Dozier DO Work Phone: [facility] 11-29-2019 Seasonal trivalent influenza vaccine, adjuvanted, preservative free Marty Dozier DO Work Phone: [facility] 05-27-2017 zoster vaccine, live Marty Dozier DO Work Phone: [facility] 11-12-2016 pneumococcal conjuga te vaccine, 13 valent Marty Dozier DO Work Phone: [facility] Payers Date Payer Category Payer Private Health Insurance [id number] 2004 Medicare [id number] 2004 Unknown 1959 Medicare [id number] 1959 Self-pay 1959 Unknown [id number] 1939 Unknown [id number] 2.16.84 0.1.310874.3.579.2.593 1939 Unknown [id number] 2.16.84 0.1.207270.3.579.2.593 1939 Unknown [id number] 2.16.84 0.1.962602.3.579.2.593 1939 Unknown [id number] 2.16.84 0.1.169735.3.579.2.593 1939 Unknown [id number] 2.16.84 0.1.995509.3.579.2.593 1939 Unknown [id number] 2.16.84 0.1.978858.3.579.2.593 1939 Unknown [id number] 2.16.84 0.1.578228.3.579.2.593 1939 Unknown [id number] 2.16.84 0.1.500082.3.579.2.593 1939 Unknown [id number] 2.16.84 0.1.934032.3.579.2.593 1939 Unknown [id number] 2.16.84 0.1.788107.3.579.2.593 1939 Unknown [id number] 2.16.84 0.1.461619.3.579.2.593 1939 Unknown [id number] 2.16.84 0.1.291109.3.579.2.593 1939 Unknown [id number] 2.16.84 0.1.080212.3.579.2.593 1939 Unknown [id number] 2.16.84 0.1.511144.3.579.2.593 1939 Unknown [id number] 2.16.84 0.1.381932.3.579.2.593 1939 Unknown [id number] 2.16.84 0.1.466186.3.579.2.593 1939 Unknown [id number] 2.16.84 0.1.578287.3.579.2.593 1939 Unknown [id number] 2.16.84 0.1.938915.3.579.2.593 1939 Unknown [id number] 2.16.84 0.1.569080.3.579.2.593 1939 Unknown [id number] 2.16.84 0.1.654619.3.579.2.593 1939 Unknown [id number] 2.16.84 0.1.112086.3.579.2.593 1939 Unknown [id number] 2.16.84 0.1.689272.3.579.2.593 1939 Unknown [id number] 2.16.84 0.1.268347.3.579.2.593 1939 Unknown [id number] 2.16.84 0.1.291109.3.579.2.593 1939 Unknown [id number] 2.16.84 0.1.300138.3.579.2.593 1939 Unknown [id number] 2.16. 840.1.705522.3.579.2.196 1939 Unknown [id number] 2.16. 840.1.331314.3.579.2.196 1939 Unknown [id number] 2.16. 840.1.725824.3.579.2.196 1939 Unknown [id number] 2.16. 840.1.313555.3.579.2.196 1939 Unknown [id number] 2.16. 840.1.278277.3.579.2.196 1939 Unknown [id number] 2.16. 840.1.047729.3.579.2.196 1939 Unknown [id number] 2.16. 840.1.781315.3.579.2.196 1939 Unknown [id number] 2.16. 840.1.414642.3.579.2.196 1939 Unknown [id number] 2.16.84 0.1.958557.3.579.2.1259 1939 Unknown [id number] 2.16.84 0.1.031939.3.579.2.1259 1939 Unknown [id number] 2.16.84 0.1.413294.3.579.2.1259 Social History Date Type Detail Facility Start: 05-14-2022 End: 08-02-2022 Tobacco smoking status NHIS Never smoked tobacco [facility] Start: 05-14-2022 End: 08-02-2022 Tobacco use and exposure Smokeless tobacco non-user [facility] Start: 05-14-2022 End: 12-06-2023 Alcohol intake Lifetime non-drinker (finding) [facility] Start: 1940 Sex Assigned At Not on file [facility] Start: 09-21-2022 End: 12-06-2023 History of Social function [facility] Start: 09-21-2022 End: 12-06-2023 Tobacco use panel [facility] Adult Depression Scr eening Assessment 2 [facility] How often to you hav e a drink containing alcohol? Never [facility] Clinical Notes 09-30-2021 to 12-06-2023 Marlena Person MA - 12/06/2023 11:30 AM EDTPatient Carolyn Lai MD - 09/21/2022 12:43 PM EDCaroline Alves PA-C - 08/26/2022 11:45 AM EDT Note Date & Type Note Facility 12-06-2023 History of Present illness Narrative Images from the original note were not included. Armando Morales, DO Obstetrics and Gynecology Alexa Delgado 1940 12/06/23 [id number] Yearly Wellness Exam Chief Complaint Patient presents with Gynecologic Exam Medicare yearly. LMP: [facility] 1972 HRT: None Last pap 12-02-21 neg. Last mammogram 12-05-[address] [facility] ordered by PCP. Denies breast or urinary concerns. bowel concern Some rectal bleeding with bowel movements. Denies difficulty having a bowel movement. Visit Vitals BP 142/82 Ht 4' 10 Wt 164 lb BMI 34.28 kg/m OB Status Hysterectomy Smoking Status Never BSA 1.74 m OB History Para Term AB Living 4 1 3 1 SAB IAB Ectopic Multiple Live Births 3 1 # Outcome Date GA Lbr Pal/2nd Weight Sex Type Anes PTL Lv 4 Para 1973 7 lb 3 oz Vag-Spont JUDE 3 1966 2 1963 1 1962 Current Outpatient Medications Medication Sig Dispense Refill acetaminophen (Tylenol) 500 MG tablet Take by mouth. aspirin 81 MG EC tablet Take 81 mg by mouth in the morning. Calcium Carbonate-Vitamin D (CALTRATE 600+D PO) Take by mouth twice a day. citalopram (CeleXA) 10 MG tablet 1 (one) time each day at the same time. cyclobenzaprine (Flexeril) 5 MG tablet Take 5 mg by mouth every 12 (twelve) hours if needed. diclofenac (Voltaren) 75 MG EC tablet every 12 (twelve) hours. fexofenadine (Benita Allergy) 180 MG tablet QAM Flaxseed, Linseed, (Flax Seed Oil) 1000 MG capsule as directed Orally Sfprxtwksop-Liaomhsntld-WDF (Triple Flex) 500-400-125 MG tablet 1 tablet with meals Orally twice daily for 30 days HYDROcodone-acetaminophen (Malone) 5-325 MG tablet 1 tablet as needed Orally twice daily isosorbide mononitrate ER (Imdur) 30 MG 24 hr tablet Take 30 mg by mouth in the morning. levothyroxine (Synthroid, Levoxyl) 75 MCG tablet 1 (one) time each day at the same time. liothyronine (Cytomel) 25 MCG tablet 1 (one) time each day at the same time. melatonin 3 MG tablet 1 (one) time each day at the same time. metoprolol succinate XL (Toprol-XL) 50 MG 24 hr tablet 1 tablet Orally twice daily for 90 days Multiple Vitamin (multivitamin) tablet Take 1 tablet by mouth in the morning. nitroglycerin (Nitrostat) 0.4 MG SL tablet as directed Sublingual Zinc-Magnesium Aspart-Vit B6 (Zinc Magnesium Aspartate) 150-3.83-10 MG capsule 1 (one) time each day at the same time. No current facility-administered medications for this visit. Allergies Allergen Reactions Codeine Darvon [Propoxyphene] GI intolerance and Headache Decongestant [Pseudoephedrine Hcl] NOTES SENSITIVITY Fluconazole Unknown Lyrica [Pregabalin] Dizziness Penicillins Unknown CHILDHOOD ALLERGY Quinine GI intolerance, Headache and Dizziness QUINAMM Past Surgical History: Procedure Laterality Date APPENDECTOMY 1960 BLADDER NECK RECONSTRUCTION 1982 with Excision of Ovary BLADDER SUSPENSION 1982 BREAST BIOPSY Left 1963 BREAST LUMPECTOMY Right 1990 BUNIONECTOMY Right 02/2005 CATARACT EXTRACTION 2012 w/ Lens Implantation CHOLECYSTECTOMY 09/15/2012 COLONOSCOPY 2019 Benign D&C FIRST TRIMESTER / TX INCOMPLETE / MISSED / SEPTIC / INDUCED x3 EXCISION BENIGN SKIN LESION TRUNK / ARM / LEG 2009 excision of lesion on leg ( benign) SD CAPSULOTOMY POSTERIOR CAPSULAR RELEASE KNEE 05/15/2013 Yttrium aluminum garnet (YAG) capsulotomies SD KNEE SCOPE,CLEAN/DRAIN 10/1998 Dr. De Leon [place] LAMNOTMY INCL W/DCMPRSN NRV ROOT 1 INTRSPC CERVC 12/20/2006 L4-5 Hemilaminectomy / Discectomy - Dr. Arshad SALPINGOOPHORECTOMY Left 1981 SKIN SURGERY 12/13/2008 excision neoplasm LT leg TONSILLECTOMY 1957 TOTAL ABDOMINAL HYSTERECTOMY 1973 SUNIL RSO TOTAL KNEE ARTHROPLASTY Right 09/22/2017 Dr. de leon Past Medical History: Diagnosis Date Angina pectoris ([facility]) Angina pectoris ([facility]) 11/2019 hx of hospitalization Melchor's palsy 1960 Breast nodule Cataract 2012 COVID-19 10/2021 hx of hospitalization History of medical problems 1982 MMK LSO HTN (hypertension) ([facility]) Hx of completed stroke hx of stroke at [id number]/ TIA 1985 Kidney disease remission Kidney disease hx of hospitalization Lumbar disc herniation 2006 L4 L5 Miscarriage x3 Pelvic fracture ([facility]) 2018 hx of hospitalization x4 Status post laser cataract surgery of left eye 2014 Stroke ([facility]) 1973 at childbirth TIA (transient ischemic attack) 1985 ROS Const: Denies appetite change, fever, chills. Allergy: Denies medication reaction. Ocular: Denies visual acuity change. ENT: Denies hearing change. Endoc: Denies weight loss. Resp: Denies dyspnoea, wheezing. Cardiac: Denies angina, palpitations. GI: Denies nausea, vomiting. Haem: Denies bleeding. : Denies incontinence. MSK: Denies arthralgias, joint oedema. Derm: Denies rash, hair loss. Neuro: Denies ataxia, tremor. Also see HPI for elements of ROS documented therein and for details of positive findings, which shall supersede the foregoing. EXAM GENERAL EXAMINATION alert oriented well developed, well nourished. Having back pain, trouble walking. HEAD: normocephalic atraumatic. EYES: sclera anicteric. EARS: no obvious hearing deficit. NECK/THYROID: neck supple no cervical lymphadenopathy no thyromegaly. LYMPH NODES: no axillary, supraclavicular or inguinal adenopathy. SKIN: warm and dry. HEART: regular rate and rhythm. LUNGS: clear to auscultation bilaterally. CHEST:axillary nodes grossly normal. BREASTS:no masses palpable bilaterally, normal nipples bilaterally - everted -fatty replaced - dense - well supported- axilla negative- pendulous ABDOMEN: soft, nontender, nondistended, no masses palpable. BACK: no costovertebral angle tenderness, no obvious scoliosis/kyphosis. FEMALE GENITOURINARY:inker and opaquer in room - atrophic vaginal changes- cuff well supported - no studding or induration - side spain negative - adnex negative RECTAL:normal tone , no masses palpable , only small external hemorrhoids.- discussed fissure EXTREMITIES no edema. NEUROLOGIC: alert and oriented. PSYCH: cooperative with exam. ICD-10-CM 1. Encounter for gynecological examination without abnormal finding Z01.419 Pelvic and breast exam completed. Findings of today's exam discussed with the patient. Continue MSBE. Ca/Vit D recommendations reviewed with the patient. The patient is to contact the office with any changes to her gynecological condition or any changes with breast or bleeding. The patient is to return in 1 year or as needed 2. Encounter for Papanicolaou smear of vagina Z12.72 IGP,rfxAptima HPV all,16/18,45 Thinprep collected. Will notify patient if results are abnormal. 3. Breast cancer screening by mammogram Z12.31 Ordered by PCP Entered by Marlena Person MA acting as scribe for Dr. Armando Morales. Signature Marlena Person MA Date 12/06/23 . Time 11:56 AM . The documentation recorded by the scribe accurately reflects the service(s) I personally performed and the decisions I made. Signature Vasu Morales D.O. Date 12/06/23 Time 5:00PM. documented in this encounter [facility] 09-21-2022 Note HNO ID: [id number] Author: Carolyn Vanegas MD Service: ? Author [...] medical record or letter via US mail. PAVAN Delgado is a 82 year old female [...] 1,000 mg by mouth once daily. fexofenadine (BENITA ALLERGY) 180 mg tablet Take 180 mg [...] Health Percentile 1 (more content not included)... [facility] 09-21-2022 Instructions Carolyn Vanegas MD [...] at this time. documented in this encounter [facility] 09-21-2022 History of Present illness [...] 1,000 mg by mouth once daily. fexofenadine (BENITA ALLERGY) 180 mg tablet Take 180 mg [...] 4 - Moderate documented in this encounter [facility] 08-26-2022 Note HNO ID: [id number] Author: Kassandra Alves PA-C Service: ? Author Type: Physician Serging Machine Operator Automatic Type: Progress Notes Filed: 08/26/2022 11:52 AM Note Text: Per Triage: Alexa Delgado is a 82 year old female that requests evaluation of spine. Per review, they have symptoms of lower back pain. Numbness/tingling right leg. Difficulty walking. Weakness Request: 1st available Referring provider: Galina Rogers MD Patient out of state: no 2nd opinion: no Prior spine surgery: yes [address] [facility] Address: [address] [place] [address] CMT: PT Injections Tylenol Hydrocodone Studies (Reports [...] reviewed during the appt Kassandra Alves PA-C [facility] 08-26-2022 History of Present illness Narrative Per Triage: Alexa Delgado is a 82 year old female that requests evaluation of spine. Per review, they have symptoms of lower back pain. Numbness/tingling right leg. Difficulty walking. Weakness Request: 1st available Referring provider: Galina Rogers MD Patient out of state: no 2nd opinion: no Prior spine surgery: yes 2006 [facility] Address: [address] [place] [address] CMT: PT Injections Tylenol Hydrocodone Studies (Reports [...] Health Provider or Pain Management Provider at [facility]? No If answer is YES please [...] facility where the MRI/CT/myelogram was completed: [facility] Address: [address] [place] [address] MRI/CT/myelogram viewable in Epic: No If not, please provide [phone] to fax in imaging reports for review. [...] physical therapy was completed PT Injection [facility] Address: [address] [place] [address] Have you tried any other kinds of [...] the surgery was completed: 2006 [facility] Address: [address] [place] [address] Additional Comments documented in this encounter [facility] 08-19-2022 Note HNO ID: [id number] Author: Micheal Bowman Service: ? Author Type: ? Type: Progress Notes Filed: 08/26/2022 11:52 AM Note Text: Patient name: Alexa Delgado Are you being referred by a [facility] Spine Health Provider or Pain Management Provider at [facility]? No If answer is YES please [...] facility where the MRI/CT/myelogram was completed: [facility] Address: [address] [place] [address] MRI/CT/myelogram viewable in Epic: No If not, please provide [phone] to fax in imaging reports for review. [...] physical therapy was completed PT Injection [facility] Address: [address] [place] [address] Have you tried any other kinds of [...] the surgery was completed: 2006 [facility] Address: [address] [place], [place] [id number] Additional Comments [facility] 07-16-2022 Note PROCEDURE: XR HIP [...] HERMES MENDOZA Date: 2022-07-16 11:28 [facility] 05-14-2022 Note HNO ID: [id number] Author: Marty Dozier, DO Service: ? Author Type: Physician Type: Progress Notes Filed: 05/15/2022 10:02 PM Note Text: [facility] [...] Ratio: R>L low back Current Treatment: Medications Malone 5-325 mg BID - helps Diclofenac 75 [...] but still has pain -01/28/22 Noemi Sequeira SALESPERSON HOSIERY: BL Lumbar erector spinae TPI (0.125% Marcaine, [...] ongoing as of 04/17/21 -03/08/21 Noemi Sequeira SALESPERSON HOSIERY: Left rhomboid TPI (0.125% Marcaine, 40 mg Kenalog) -02/03/21 LESI - moderate relief for 4 days Prior spine surgery: -2006 L4-5 Discectomy Previously treated by: -[facility], previously Dr. [...] today. She has an evaluation at the [facility] tomorrow at the [facility]. RECOMMENDATIONS: We will see the patient back in the office after she undergoes evaluation there to discuss her treatment plan thereafter. We will see the patient back in the office in approximately four weeks' time or sooner if needed. PMH: Lumbar scoliosis Depression on Negrita (more content not included)... [facility] 05-14-2022 History of Present illness Narrative Images from the original note were not included. [facility] - [facility] [...] Ratio: R>L low back Current Treatment: Medications Malone 5-325 mg BID - helps Diclofenac 75 [...] but still has pain -01/28/22 Noemi Sequeira SALESPERSON HOSIERY: BL Lumbar erector spinae TPI (0.125% Marcaine, [...] ongoing as of 04/17/21 -03/08/21 Noemi Sequeira SALESPERSON HOSIERY: Left rhomboid TPI (0.125% Marcaine, 40 mg Kenalog) -02/03/21 LESI - moderate relief for 4 days Prior spine surgery: -2006 L4-5 Discectomy Previously treated by: -[facility], previously Dr. [...] today. She has an evaluation at the [facility] tomorrow at the Spine [facility]. [...] reviewed 04/04/22 CT abd/pelvis with IV contrast, [facility], report: Abdominal wall: Old healed left pelvis fractures. Degenerative changes and scoliosis of the lumbar spine. IMPRESSION: No acute abdominal pathology. No acute inflammatory process. No obstructing urinary tract stone. No evidence for bowel obstruction. 11/15/21 XR abd, [facility], report: No acute osseous abnormality. There is moderate dextrocurvature of the lumbar spine. 05/08/2021 XR right hip/pelvis, [facility], report: Rotatory dextro scoliosis of [...] TIME: 3:15 PM documented in this encounter [facility] 05-13-2022 Note CONSULTATION CONSULTATION DATE: [...] mg at h.s., diclofenac 75 mg b.i.d., Malone 5 mg b.i.d. EXAM: Notable for the [...] today. She has an evaluation at the [facility] tomorrow at the Spine [facility]. RECOMMENDATIONS: We will see the patient back in the office after she undergoes evaluation there to discuss her treatment plan thereafter. We will see the patient back in the office in approximately four weeks' time or sooner if needed. [facility] 04-06-2022 Note CONSULTATION CONSULTATION DATE: [...] to kidney dysfunction also. The patient takes Malone, however, is very controlled and limits it to the point of detriment. Education was done. The patient was instructed to take the Malone to a b.i.d. to t.i.d. basis. The [...] b.i.d. basis. The patient may increase the Malone to 5/325 t.i.d. We will schedule the [...] the procedure. CC: Galina Rogers M.D. [facility] 03-11-2022 Note CONSULTATION CONSULTATION DATE: [...] gave improvement for 24 hours. Medications include Malone 5/325 b.i.d., diclofenac 75 mg b.i.d., citalopram [...] back pain. PLAN: We will refill her Malone 5/325 b.i.d. We will prescribe her Buderer cream with gabapentin, ketorolac and prilocaine/lidocaine to be placed over her right knee. We will trial Requip 0.25 mg q.h.s. We will see the patient in the clinic in three months' time unless otherwise indicated. Patient agrees with the plan. [facility] 01-28-2022 Note CONSULTATION CONSULTATION DATE: [...] daily which decreases her pain. Medications include Malone 5/325 b.i.d., Flexeril 5 mg b.i.d., diclofenac [...] does consent to. We will refill the Malone 5/325 b.i.d. We will pre-authorize for a right genicular nerve block under fluoroscopy. Patient will follow up in the clinic thereafter. [facility] 01-28-2022 Note CONSULTATION PROCEDURE DATE: [...] be followed up in the office. [facility] 12-31-2021 Note CONSULTATION CONSULTATION DATE: [...] Current medications include diclofenac 75 mg b.i.d., Malone 5/325 b.i.d., citalopram, Flexeril and multivitamin regimen. The patient does state that she breaks her Malone in half and the most she takes [...] and would like to move forward. [facility] 09-30-2021 Note CONSULTATION CONSULTATION DATE: 09/30/2021 This is a very [id number] female accompanied by her returning to the [...] Current medications include diclofenac 50 mg b.i.d., Malone 5/325 b. i.d. and Tylenol. She does [...] at 25 mg q.h.s. Refill for her Malone 5/325 b.i.d. will be sent as well. The patient is to continue with her vitamin regimen which she is currently compliant with, as well as heat application and pool exercises. The patient will be followed up in the office in three months' time unless otherwise indicated. The patient agrees with the plan of care. [facility] Evaluation note Diagnosis Chronic bilateral low back pain with right-sided sciatica- Primary Back pain, lumbosacral Lumbago Chronic sacroiliac joint pain Disorders of sacrum Lumbar spondylosis Lumbosacral spondylosis without myelopathy Scoliosis of lumbar spine, unspecified scoliosis type [facility] Spinal stenosis, lumbar region with neurogenic claudication- Primary Spondylolisthesis, lumbar region Other idiopathic scoliosis, lumbar region [facility] Obesity, Class I, BMI 30-34.9- Primary Obesity, unspecified Spinal stenosis, lumbar region with neurogenic claudication [facility] Encounter for gynecological examination without abnormal finding Encounter for Papanicolaou smear of vagina Breast cancer screening by mammogram documented in this encounter [facility] Summary Purpose Family History No Family History [...] By Contac t Referred To Contact [facility] Diagnoses Spinal stenosis, lumbar region with neurogenic claudication Procedures CONSULT TO [facility] OFFICE/OUTPATIENT [facility] 60-74 MINUTES Carolyn Vanegas MD [address] [place] [address] Referral ID Status Reason Start Date Expiration Date Visits Requested Visits Authorized [id number] Pending Review PCP Requested Referral 09/21/2022 09/21/2023 1 1 Additional Source Comments INFORMATION SOURCE (unrecogn ized section and content) DATE CREATED AUTHOR 09/13/2017 [facility] DATE CREATED AUTHOR AUTHOR'S ORGANIZ ATION 12/13/2020 [facility] DATE CREATED AUTHOR AUTHOR'S ORGANIZ ATION 07/30/2022 [facility] DATE CREATED AUTHOR AUTHOR'S ORGANIZ ATION 09/22/2022 [facility] DATE CREATED AUTHOR AUTHOR'S ORGANIZ ATION 10/10/2023 [facility] DATE CREATED AUTHOR AUTHOR'S ORGANIZ ATION 10/26/2023 [facility] DATE CREATED AUTHOR AUTHOR'S ORGANIZ ATION 12/08/2023 [facility] EPIC Source Comments (unrecognize d section and content) In the event this informatio n is protected by the Federal Confidentiality of Alcohol and Drug Abuse Patient Records regulations: The Federal rules restrict any use of the information to criminally investigate or prosecute any alcohol or drug abuse patient.[facility] the event this information is protected by the Federal Confidentiality of Alcohol and Drug Abuse Patient Records regulations: The Federal rules restrict any use of the information to criminally investigate or prosecute any alcohol or drug abuse patient.[facility] the event this information is protected by the Federal Confidentiality of Alcohol and Drug Abuse Patient Records regulations: The Federal rules restrict any use of the information to criminally investigate or prosecute any alcohol or drug abuse patient.[facility] Reason for Visit (unrecogniz ed section and content) Reason Comments New Patient Evaluation Low Back Pain Reason Comments New Patient Reason Comments Gynecologic Exam Medicare yearly.LMP: SUNIL BSO 1973HRT: NoneLast pap 12-02-21 neg.Last mammogram 12-05-[address] [facility] ordered by PCP.Denies breast or urinary concerns. bowel concern Some rectal bleeding with bowel movements. Denies difficulty having a bowel movement. Care Teams (unrecognized sec tion and content) Broom Machine Operator Relationship Specialty Start Date End Date Galina Rogers MD [address] [place] [phone] PCP - General Family Medicine 05/14/22 Colette De Leon Jr., DO [address] [address] Referring Orthopedics 05/03/22 Lakshmipathy, Narendranath [address] [phone] Pain Management 05/14/22 Colette De Leon Jr., DO [address] [place] [address] Orthopedics 05/14/22 Broom Machine Operator Relationship Specialty Start Date End Date Galina Rogers MD [address] [place] [address] PCP - General Family Medicine 05/14/22 Colette De Leon Jr., DO [address] [place] [address] Referring Orthopedics 05/03/22 Lakshmipathy, Narendranath [address] [phone] Pain Management 05/14/22 Colette De Leon Jr., DO [address] [place] [address] Orthopedics 05/14/22 Galina Rogers MD [address] [place] [address] Referring Family Medicine 08/11/22 Broom Machine Operator Relationship Specialty Start Date End Date Galina Rogers MD [address] [place] [address] PCP - General Family Medicine 05/14/22 Colette De Leon Jr., DO [address] [place] [address] Referring Orthopedics 05/03/22 SylviegildardoPorsha mancia [address] [phone] Pain Management 05/14/22 Colette De Leon Jr., [address] [facility] [address] [place] [address] Orthopedics 05/14/22 Galina Rogers MD [address] [place] [phone] Referring Family Medicine 08/11/22 Broom Machine Operator Relationship Specialty Start Date End Date Galina Rogers MD [address] [place] [phone] PCP - General Family Medicine 08/02/22 FOR RECORDS PERTAINING TO PATIENTS WHO ARE [...] BE BASED ON THE PRIMARY CLINICAL RECORDS. [facility] [employer] [facility]. provides no warranty or guarantee of the accuracy or completeness of information in this document.
[2024-01-04 15:15] LABS: Bilirubin Urine NEGATIVE (NEGATIVE); Blood Urine TRACE-I (NEGATIVE); Clarity Urine CLEAR (CLEAR); Color Urine LT. YELLOW (YELLOW); Glucose Urine UA NEGATIVE (NEGATIVE); Ketones Urine NEGATIVE (NEGATIVE); Leukocyte Esterase Urine NEGATIVE (NEGATIVE); Nitrite Urine NEGATIVE (NEGATIVE); Protein Urine NEGATIVE (NEG/TRACE); Urobilinogen Urine 0.2 EU/dL (0.2-1.0)
[2024-01-04 15:26] LABS: Bacteria Urine NONE SEEN #/HPF (NONE SEEN); WBC Urine 0-2 #/HPF (NONE SEEN)
[2024-01-04 15:27] LABS: Cast Seen? NONE SEEN #/LPF (NONE SEEN); Crystals Seen? None Seen #/HPF (None Seen); Mucus Urine NONE SEEN (NONE SEEN); Squamous Epithelial Cell Urine NONE SEEN #/LPF (NONE/RARE); Transitional Epi Cells Urine RARE #/LPF (NONE SEEN)
== END 2024-01-04 14:20 | disposition home or self-care (01) ==
LOC: LAB 14:19
PROVIDERS: PCP Family Medicine; Visit Provider Family Medicine
DX: N39.0 Urinary tract infection, site not specified (principal)
CPT/HCPCS: 81001; 87086

== ENCOUNTER 2024-01-05 13:59 | Outpatient (OUT) | payer MEDICARE, SELFPAY ==
--- OUTSIDE RECORDS SUMMARY | 2024-01-05 14:23 | XMS_ITS | CCD ---
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 DE LEON GEORGE C Attending Unavailvadna DE LEON JR., GEORGE C Referring ARMANDO Gotti Attending Unavailable Galina Rogers MD Primary Care Provider [phone] Allergies Allergy Classification Reported Allergen(s) Allergy Type Date of Onset Reaction(s) Facility (5 sources) Codeine; Translations: [CODEINE] Drug Allergy 09-14-19 13 Unknown [facility] (4 sources) Penicillins; Translations: [PENICILLINS] Drug Allergy 09-14-19 13 Unknown [facility] (4 sources) pregabalin; Translations: [PREGABALIN] Drug Allergy 05-15-19 23 Intolerance [facility] Work Phone: (5 sources) Propoxyphene; Translations: [PROPOXYPHENE] Drug Allergy 05-15-19 23 Rash, Unknown, GI intolerance, Headache [facility] (4 sources) quiNINE; Translations: [QUINAMM] Drug Allergy 05-15-19 23 GI Upset [facility] (5 sources) Decongest Multi-Action; Translations: [Decongest Multi-Action] Drug Allergy 05-15-19 23 Other: See Comments [facility] (1 source) Acetaminophen / HYDROcodone Drug Allergy [facility] (2 sources) Codeine Drug Allergy 09-14-19 13 [facility] (1 source) Fluconazole Drug Allergy [facility] (2 sources) Penicillins Drug allergy (disorder) 09-14-19 13 [facility] (1 source) pregabalin Drug Allergy [facility] (2 sources) Propoxyphene Drug Allergy [facility] (1 source) quiNINE Drug Allergy [facility] (1 source) Fluconazole Allergy [...] mouth twice daily as needed HYDROcodone-acetamin ophen (Jones) 5-325 MG tablet 1 tablet as needed [...] Take by mouth twice a day. Active Tcasvqe-Gzyqieb-Pryuv l Edwar (SALONPAS TD) (1 source) Camphor-Menthol- [...] above: Take by mouth twice daily. 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 CURRENT USE OF ASPIRIN] Onset: 04-06-2022 Episodic Other aftercare (1 source) Other shelter (current) drug therapy; Translations: [OTH [facility] CURRENT DRUG THERAPY] Onset: 04-06-2022 Episodic Other [...] Test Name Value Interpretation Reference Range Facility [facility] 08-18-2023 L Specimen: [id number] Received: 08/22/23 Status: CECILAI Req Num: [id number] Spec Type: Impression Subm Dr: Galina Rogers MD Tissues: PATHPER Procedures: PATHREVIEW Age/ Patient Sex Location Account Attending Physician Alexa Delgado 83/F LABELL [id number] Galina Rogers MD SPEC NUM: [id number] RECD: 08/22/23 [facility] NUM: [id number] JANET: 08/18/[address]: Galina Rogers MD ENTERED: 08/22/23 [facility] DR: Annie Rivas SPEC TYPE: Impression DEPT: SHELLIE Simmons ENTERED BY: [id number] RECV BY: [id number] ORDERED: PATHREVIEW ORDERED: PATHREVIEW Pathologist Review Abnormal [...] initial report for the needed correction CPT: 09914 ---- ---- Specimen: [id number] Received: 08/22/23 Status: CECILIA Biggsjose Num: [id number] Spec Type: Impression Subm Dr: Galina Rogers MD Tissues: PATHPER Procedures: PATHREVIEW ---- Patient: Alexa Delgado [id number] (Continued) ---- Signed (signature on file) Anoop Abdul MD 08/24/23918 Normal [facility] CNOVon 09-21-2022 CNOV Office Visit (NSADHC ) ALEXA DELGADO ([id number]) 1940 F Date Time Provider Department 09/21/22 1:00 PM CAROLYN VANEGAS [facility] During your visit today, we [...] Percentile 2 (more content not included)... Normal [facility] XR LSPINE 2_3 VIEWSon 2022 XR [...] Date: 2022-07-16 11:[address] [facility] CNOVon 05-14-2022 CNOV Office Visit (SPMESH ) ALEXA DELGADO ([id number]) 1940 F Date Time Provider Department 05/14/22 2:30 PM [facility] During your visit today, we recorded the following information about you: Pulse Blood pressure Weight Height 72/minute 158/87 76.4 kg 1.524 m Marty Dozier DO 05/15/2022 10:02 PM Signed [facility] - Medical Spine Initial [...] Ratio: R>L low back Current Treatment: Medications Jones 5-325 mg BID - helps Diclofenac 75 [...] but still has pain -01/28/22 Noemi Sequeira CONSTRUCTION EQUIPMENT MECHANIC: BL Lumbar erector spinae TPI (0.125% [...] ongoing as of 04/17/21 -03/08/21 Noemi Sequeira CONSTRUCTION EQUIPMENT MECHANIC: Left rhomboid TPI (0.125% Marcaine, 40 mg Kenalog) -02/03/21 LESI - moderate relief for 4 days Prior spine surgery: -2006 L4-5 Discectomy Previously treated by: -[facility], previously Dr. [...] today. She has an evaluation at the [facility] tomorrow at the [facility]. RECOMMENDATIONS: We will see the pat (more content not included)... Normal [facility] CULTURE URINEon 04-05-2022 CULTURE URINE Culture Observations : LIGHT GROWTH OF MIXED GENITAL ALANIS. NO POTENTIAL PATHOGENS SEEN. Normal [facility] Comment on above: Performed By: #### U RCX ####[facility] [address] [place] [address]Dr. Grace Abdul UA RANDOM W/MICROSCOPICon BACTERIA NONE SEEN Normal NONE SEEN [facility] Comment on above: Performed By: #### U AMIC ####[facility] [address] [place] [address]Dr. Grace Abdul Bilirubin Ql (U) Negative Normal NEGATIVE [facility] Comment on above: Performed By: #### U AMIC ####[facility] [address]dosby[address] [place], [place] [address]Dr. Grace Abdul CAST NONE SEEN Normal NONE SEEN [facility] Comment on above: Performed By: #### U AMIC ####[facility] [address]dtbjib[address] [place] [address]Dr. Grace Abdul Clarity (U) CLEAR Normal CLEAR [facility] Comment on above: Performed By: #### U AMIC ####[facility] [address] [place] [address]Dr. Grace Abdul Color (U) YELLOW Normal YELLOW [facility] Comment on above: Performed By: #### U AMIC ####[facility] [address]cj[address] [place] [address]Dr. Grace Abdul Crystals LM Nom (Urine sed) NONE SEEN Normal NONE SEEN [facility] Comment on above: Performed By: #### U AMIC ####[facility] [address] [place] [address]Dr. Grace Abdul Epithelial cells LM Ql (Urine sed) RARE Normal NONE SEEN /RARE [facility] Comment on above: Performed By: #### U AMIC ####[facility] [address]qteyxnrll[address] [place] [address]Dr. Grace Abdul Glucose Ql (U) Negative Normal NEGATIVE [facility] Comment on above: Performed By: #### U AMIC ####[facility] Leshtyuoef[address] [place] [address]Dr. Grace Abdul Hemoglobin Ql (U) MODERATE Abnormal NEGATIVE [facility] Comment on above: Performed By: #### U AMIC ####[facility] Odsgnkvfcl[address] [place], [place] [address]Dr. Grace Abdul Ketones Ql (U) TRACE Abnormal NEGATIVE [facility] Comment on above: Performed By: #### U AMIC ####[facility] Kuvokksz[address] [place], [place] [address]Dr. Grace Abdul LEUKOCYTES TRACE Abnormal NEGATIVE [facility] Comment on above: Performed By: #### U AMIC ####[facility] R[address]duyrbpm[address] [place], [place] [address]Dr. Grace Abdul MUCOUS NONE SEEN Normal NONE SEEN [facility] Comment on above: Performed By: #### U AMIC ####[facility] Qvpndfxupq[address] [place], [place] [address]Dr. Grace Abdul Nitrite Ql (U) Negative Normal NEGATIVE [facility] Comment on above: Performed By: #### U AMIC ####[facility] Rqpjyefqqd[address] [place], [place] [address]Dr. Grace Abdul pH (U) 5.0 [pH] Normal 5-9 [facility] Comment on above: Performed By: #### U AMIC ####[facility] Bfqejyvuyk[address] [place], [place] [address]Dr. Grace Abdul RBC 0-2 Normal 0-2 [facility] Comment on above: Performed By: #### U AMIC ####[facility] Rxuzowdnii[address] [place], [place] [address]Dr. Grace Abdul SPEC GRAVITY 1.015 Normal 1.005-<=1.025 [facility] Comment on above: Performed By: #### U AMIC ####[facility] [address] [place] [address]Dr. Grace Abdul UA PROTEIN Negative Normal NEGATIVE/ TRACE [facility] Comment on above: Performed By: #### U AMIC ####[facility] [address]kw[address] [place] [address]Dr. Grace Abdul Urobilinogen Qn (U) 0.2 {Ashley'U}/dL Normal 0.2 - 1. 0 [facility] Comment on above: Performed By: #### U AMIC ####[facility] Tcrgusjyjd[address] [place], [place] [address]Dr. Grace Abdul WBC 0-2 Abnormal NONE SEEN [facility] Comment on above: Performed By: #### U AMIC ####[facility] Kbdegyawbp[address] [place], [place] [address]Dr. Grace Abdul CBC AUTO DIFFon 04-04-2022 BASO # 0.0 103/ul Normal 0.0-0.1 [facility] Comment on above: Performed By: #### C BC ####[facility] Bbqpkdixjg[address] [place], [place] [address]Dr. Grace Abdul Basophils/100 WBC (Bld) 0.4 % Normal 0.2-2.0 [facility] Comment on above: Performed By: #### C BC ####[facility] Ewatlzbfyy[address] [place], [place] [address]Dr. Grace Abdul EO # 0.1 103/ul Normal 0.0-0.7 [facility] Comment on above: Performed By: #### C BC ####[facility] Cgbikfmgbf[address] [place], [place] [address]Dr. Grace Abdul Eosinophils/100 WBC (Bld) 1.3 % Normal 0.9-7.0 [facility] Comment on above: Performed By: #### C BC ####[facility] Xcbjfnfnuo[address] [place], [place] [address]Dr. Grace Abdul Erythrocyte distribution width (RBC) [Ratio] 13.7 % Normal 11.0-15.0 [facility] Comment on above: Performed By: #### C BC ####[facility] [address]ehs[address] [place] [address]Dr. Grace Abdul Hematocrit (Bld) [Volume fraction] 37.2 % Normal 36.0-48.0 [facility] Comment on above: Performed By: #### C BC ####[facility] [address]fr[address]ruvcxs[address] [place] [address]Dr. Benitalee ann Abdul Hemoglobin (Bld) [Mass/Vol] 12.4 g/dL Normal 12.0-16.0 [facility] Comment on above: Performed By: #### C BC ####[facility] Dfqbsfqmxl[address] [place], [place] [address]Dr. Grace Abdul IG # 0.02 10e3/ul Normal 0.00-0.03 [facility] Comment on above: Performed By: #### C BC ####[facility] Dwioynqcbj[address] [place], [place] [address]Dr. Grace Abdul IG % 0.4 % Normal 0.0-0.5 [facility] Comment on above: Performed By: #### C BC ####[facility] Haniqjkpvz[address] [place], [place] [address]Dr. Grace Abdul LYMPH # 0.8 103/ul Critically low 1.2-3.8 [facility] Comment on above: Performed By: #### C BC ####[facility] Tusvwqaclj[address] [place], [place] [address]Dr. Grace Abdul Lymphocytes/100 WBC (Bld) 13.9 % Critically low 20.5-60.0 [facility] Comment on above: Performed By: #### C BC ####[facility] Zvouyzmisu[address] [place], [place] [address]Dr. Grace Abdul MANUAL DIFF REQ NO Normal [facility] Comment on above: Performed By: #### C BC ####[facility] Qyebmqmpto3414[address] [place], [place] [address]Dr. Grace Abdul MCH (RBC) [Entitic mass] 30.5 pg Normal 26.7-34.0 [facility] Comment on above: Performed By: #### C BC ####[facility] [address]rie[address] [place] [address]Dr. Grace Abdul MCHC (RBC) [Mass/Vol] 33.3 g/dL Normal 29.9-35.2 [facility] Comment on above: Performed By: #### C BC ####[facility] [address]zduxt[address] [place] [address]Dr. Benitalee ann Abdul MCV (RBC) [Entitic vol] 91.4 fL Normal 81.0-99.0 [facility] Comment on above: Performed By: #### C BC ####[facility] Xhiyipuocr0[address] [place], [place] [address]Dr. Benitalee ann Franko MONO # 0.7 103/ul Normal 0.3-0.8 [facility] Comment on above: Performed By: #### C BC ####[facility] Mygopeltih[address] [place], [place] [address]Dr. Grace Abdul Monocytes/100 WBC (Bld) 13.5 % Critically high 1.7-12.0 [facility] Comment on above: Performed By: #### C BC ####[facility] Njxdbthj[address] [place], [place] [address]Dr. Grace Abdul NEUT # 3.8 103/ul Normal 1.4-6.5 [facility] Comment on above: Performed By: #### C BC ####[facility] Hmzaajmnoh[address] [place], [place] [address]Dr. Grace Abdul Neutrophils/100 WBC (Bld) 70.5 % Normal 43.0-75.0 [facility] Comment on above: Performed By: #### C BC ####[facility] Pqpxkozzlc[address] [place], [place] [address]Dr. Grace Abdul Platelet mean volume (Bld) [Entitic vol] 9.0 fL Critically low 9.5-13.5 [facility] Comment on above: Performed By: #### C BC ####[facility] Hcnkkazgql[address] [place], [place] [address]Dr. Grace Abdul PLT 283 103/ul Normal 150-450 [facility] Comment on above: Performed By: #### C BC ####[facility] X[address] [place], [place] [address]JtLisette Abdul RBC 4.07 106/ul Critically low 4.20-5.40 [facility] Comment on above: Performed By: #### C BC ####[facility] [address]ekrhvq45[address] [place], [place] [address]ZiLisette Abdul WBC 5.4 103/ul Normal 4.0-11.0 [facility] Comment on above: Performed By: #### C BC ####[facility] [address]thi[address] [place], [place] [address]. [address] ABD/PELV W CONon 04-04-19 [...] EMILY NAVARRETE Date: 2022-04-04 16:59 Normal [facility] ER URINE PROFILEon 3 Bilirubin Ql (U) Negative Normal NEGATIVE [facility] Comment on above: Performed By: #### Anthony ELLISON UMICRO ####[facility] [address] [place] [address]Dr. Grace Abdul Clarity (U) CLEAR Normal CLEAR [facility] Comment on above: Performed By: #### Anthony ELLISON UMICRO ####[facility] [address]ish[address] [place] [address]Dr. Grace Abdul Color (U) LT. YELLOW Normal YELLOW [facility] Comment on above: Performed By: #### GINA FELDERRO ####[facility] [address] [place] [address]Dr. Grace Abdul ERUAHD A micrscopic examination will be performed if indicated. Normal [facility] Comment on above: Performed By: #### Antohny ELLISON UMICRO ####[facility] [address]sc[address] [place] [address]Dr. Grace Abdul Glucose Ql (U) Negative Normal NEGATIVE [facility] Comment on above: Performed By: #### Anthony ELLISON UMICRO ####[facility] Rrwhxjepii[address] [place] [address]Dr. Grace Abdul Hemoglobin Ql (U) SMALL Abnormal NEGATIVE [facility] Comment on above: Performed By: #### Anthony ELLISON UMICRO ####[facility] Rsexzqmjmw[address] [place] [address]Dr. Grace Abdul Ketones Ql (U) Negative Normal NEGATIVE [facility] Comment on above: Performed By: #### GINA FELDERRO ####[facility] [address]hi[address] [place] [address]Dr. Grace Abdul LEUKOCYTES TRACE Abnormal NEGATIVE [facility] Comment on above: Performed By: #### GINA FELDERRO ####[facility] [address]azxsusq[address] [place] [address]Dr. Grace Abdul Nitrite Ql (U) Negative Normal NEGATIVE [facility] Comment on above: Performed By: #### ROBERT FELDER ####[facility] [address]fok[address] [place] [address]Dr. Grace Abdul pH (U) 7.5 [pH] Normal 5-9 [facility] Comment on above: Performed By: #### ROBERT FELDER ####[facility] [address]jo[address] [place] [address]Dr. Grace Abdul SPEC GRAVITY 1.005 Normal 1.005-<=1.025 [facility] Comment on above: Performed By: #### ROBERT FELDER ####[facility] [address] [place] [address]Dr. Grace Abdul UA PROTEIN Negative Normal NEGATIVE/ TRACE [facility] Comment on above: Performed By: #### ROBERT FELDER ####[facility] [address]vwcqcacig[address] [place] [address]Dr. Grace Abdul UR MICRO IND INDICATED Normal [facility] Comment on above: Performed By: #### ROBERT FELDER ####[facility] Cxvkobtrkb[address] [place] [address]Dr. Grace Abdul Urobilinogen Qn (U) 0.2 {Ashley'U}/dL Normal 0.2 - 1. 0 [facility] Comment on above: Performed By: #### ROBERT FELDER ####[facility] [address] [place] [address]Dr. Grace Abdul LIPASEon 04-04-2022 Lipase [Catalytic activity/Vol] 115.0 U/L Normal 73.0-393.0 [facility] Comment on above: Performed By: #### C VDTB #### [facility] [address] [place] [address] [address] Grace Abdul PROF 14(COMP METB)on 023 Albumin [Mass/Vol] 3.6 g/dL Normal 3.4-5.0 [facility] Comment on above: Performed By: #### C VDTBH #### [facility] [address] [place] [address] [address] Grace Abdul Albumin/Globulin [Mass ratio] 1.1 {ratio} Normal [facility] Comment on above: Performed By: #### C VDTBH #### [facility] [address] [address] [address] Grace Abdul ALP [Catalytic activity/Vol] 74 U/L Normal 46-116 [facility] Comment on above: Performed By: #### C VDTBH #### [facility] [address] [address] [address] Grace Abdul ALT [Catalytic activity/Vol] 23 U/L Normal 14-59 [facility] Comment on above: Performed By: #### C VDTBH #### [facility] [address] [place] [address] Dr. Grace Abdul Anion gap [Moles/Vol] 12.1 mmol/L Normal [facility] Comment on above: Performed By: #### C VDTBH #### [facility] [address] [place] [address] Dr. Grace Abdul AST [Catalytic activity/Vol] 21 U/L Normal 15-37 [facility] Comment on above: Performed By: #### C VDTBH #### [facility] [address] [place] [address] Dr. Grace Abdul Bilirubin [Mass/Vol] 0.2 mg/dL Normal 0.2-1.0 [facility] Comment on above: Performed By: #### C VDTBH #### [facility] [address] [address] [address] Grace Abdul Calcium [Mass/Vol] 9.3 mg/dL Normal 8.5-10.1 The [facility] Comment on above: Performed By: #### C VDTBH #### [facility] [address] [address] [address] Grace Abdul Chloride [Moles/Vol] 99 mmol/L Normal 98-107 [facility] Comment on above: Performed By: #### C VDTBH #### [facility] [address] [address] [address] Grace Abdul CO2 [Moles/Vol] 31.2 mmol/L Normal 21.0-32.0 [facility] Comment on above: Performed By: #### C VDTBH #### [facility] [address] [address] [address] Grace Abdul Creatinine [Mass/Vol] 1.22 mg/dL Critically high 0.55-1.02 [facility] Comment on above: Performed By: #### C VDTBH #### [facility] [address] [address] [address] Grace Abdul EGFR-AF NIGERIAN 51 mL/min/1.73m2 Critically low >=60 [facility] Comment on above: Performed By: #### C VDTBH #### [facility] [address] [address] [address] Grace Abdul EGFR-NON AF NIGERIAN 42 mL/min/1.73m2 Critically low >=60 [facility] Comment on above: Performed By: #### C VDTBH #### [facility] [address] [address] [address] Grace Abdul Globulin (S) [Mass/Vol] 3.3 g/dL Normal [facility] Comment on above: Performed By: #### C VDTBH #### [facility] [address] [address] [address] Grace Abdul Glucose [Mass/Vol] 115 mg/dL Critically high 74-106 [facility] Comment on above: Performed By: #### C VDTBH #### [facility] [address] [address] [address] Grace Abdul Potassium [Moles/Vol] 3.3 mmol/L Critically low 3.5-5.1 [facility] Comment on above: Performed By: #### C VDTBH #### [facility] [address] [address] [address] Grace Abdul Protein [Mass/Vol] 6.9 g/dL Normal 6.4-8.2 [facility] Comment on above: Performed By: #### C VDTBH #### [facility] [address] [address] [address] Grace Abdul Sodium [Moles/Vol] 139 mmol/L Normal 136-145 [facility] Comment on above: Performed By: #### C VDTBH #### [facility] [address] [address] [address] Grace Abdul Urea nitrogen [Mass/Vol] 23.0 mg/dL Critically high 7.0-18.0 [facility] Comment on above: Performed By: #### C VDTBH #### [facility] [address] [address] [address] Grace Abdul Urea nitrogen/Creatinine [Mass ratio] 18.9 mg/mg Normal [facility] Comment on above: Performed By: #### C VDTB #### [facility] [address] [address] [address] Grace Abdul URINE MICROSCOPIC ONLYon BACTERIA NONE SEEN Normal NONE SEEN [facility] Comment on above: Performed By: #### Anthony ELLISON UMICRO ####[facility] [address] [place] [address]Dr. Grace Abdul Bacteria identified Cx Nom (U) NOT INDICATED Normal [facility] Comment on above: Performed By: #### Anthony ELLISON UMICRO ####[facility] [address] [place] [address]Dr. Grace Abdul CAST NONE SEEN Normal NONE SEEN [facility] Comment on above: Performed By: #### Anthony ELLISON UMICRO ####[facility] [address]br[address] [place] [address]Dr. Grace Abdul Crystals LM Nom (Urine sed) NONE SEEN Normal NONE SEEN [facility] Comment on above: Performed By: #### Anthony ELLISON UMICRO ####[facility] [address] [place] [address]Dr. Grace Abdul Epithelial cells LM Ql (Urine sed) RARE Normal NONE SEEN /RARE [facility] Comment on above: Performed By: #### ROBERT FELDER ####[facility] [address] [place] [id number]. Grace Abdul MUCOUS NONE SEEN Normal NONE SEEN [facility] Comment on above: Performed By: #### ROBERT FELDER ####[facility] [address]ks[address] [place] [id number]. Grace Abdul RBC 0-2 Normal 0-2 [facility] Comment on above: Performed By: #### ROBERT FELDER ####[facility] Hrulnsrkup[address] [place] [id number]. Grace Abdul WBC 0-2 Abnormal NONE SEEN [facility] Comment on above: Performed By: #### ROBERT FELDER ####[facility] Cjvpbdykyb[address] [place] [address]DrLisette Abdul BNPon 12-11-2021 Natriuretic peptide B (Bld) [Mass/Vol] 665.0 pg/mL Normal <=1,800.0 [facility] Comment on above: Performed By: #### B MP #### [facility] [address] [address] [address] Grace Abdul CBC AUTO DIFFon 12-11-2021 BASO # 0.0 103/ul Normal 0.0-0.1 [facility] Comment on above: Performed By: #### C BC ####[facility] [address]ysh[address]om[address] [place] [address]DrLisette Abdul Basophils/100 WBC (Bld) 0.5 % Normal 0.2-2.0 [facility] Comment on above: Performed By: #### C BC ####[facility] [address]uscwdaur[address] [place] [address]DrLisette Abdul EO # 0.1 103/ul Normal 0.0-0.7 [facility] Comment on above: Performed By: #### C BC ####[facility] [address]dpimvupod[address] [place] [address]DrLisette Abdul Eosinophils/100 WBC (Bld) 1.9 % Normal 0.9-7.0 [facility] Comment on above: Performed By: #### C BC ####[facility] [address]tujlhodtc[address] [place] [address]Dr. Grace Abdul Erythrocyte distribution width (RBC) [Ratio] 13.4 % Normal 11.0-15.0 [facility] Comment on above: Performed By: #### C BC ####[facility] [address]dlvyqsyaw[address] [place] [address]Dr. Grace Abdul Hematocrit (Bld) [Volume fraction] 36.2 % Normal 36.0-48.0 [facility] Comment on above: Performed By: #### C BC ####[facility] Utahuxmvzy[address] [place], [place] [address]DrLisette Grace Abdul Hemoglobin (Bld) [Mass/Vol] 11.9 g/dL Critically low 12.0-16.0 [facility] Comment on above: Performed By: #### C BC ####[facility] Gcckpryvii[address] [place], [place] [address]DrLisette Grace Abdul IG # 0.01 10e3/ul Normal 0.00-0.03 [facility] Comment on above: Performed By: #### C BC ####[facility] Cmmnwxeuaz[address] [place], [place] [address]DrLisette Grace Abdul IG % 0.2 % Normal 0.0-0.5 [facility] Comment on above: Performed By: #### C BC ####[facility] Bkdyojsqcf[address] [place], [place] [address]DrLisette Grace Abdul LYMPH # 0.5 103/ul Critically low 1.2-3.8 [facility] Comment on above: Performed By: #### C BC ####[facility] Hfwchmlnjn[address] [place], [place] [address]DrLisette Grace Abdul Lymphocytes/100 WBC (Bld) 11.5 % Critically low 20.5-60.0 [facility] Comment on above: Performed By: #### C BC ####[facility] Cbrqhylmcd[address] [place], [place] [address]DrLisette Grace Franko MANUAL DIFF REQ NO Normal [facility] Comment on above: Performed By: #### C BC ####[facility] Mfvqwztvbc2[address] [place] [id number]. Grace Franko MCH (RBC) [Entitic mass] 31.6 pg Normal 26.7-34.0 [facility] Comment on above: Performed By: #### C BC ####[facility] Icudnbqqzw99[address] [place] [id number]. Grace Franko MCHC (RBC) [Mass/Vol] 32.9 g/dL Normal 29.9-35.2 [facility] Comment on above: Performed By: #### C BC ####[facility] Zojjasxpup[address] [place] [address]Dr. Grace Abdul MCV (RBC) [Entitic vol] 96.0 fL Normal 81.0-99.0 [facility] Comment on above: Performed By: #### C BC ####[facility] Kagfocrpwu[address] [place], [place] [address]Dr. Grace Abdul MONO # 0.6 103/ul Normal 0.3-0.8 [facility] Comment on above: Performed By: #### C BC ####[facility] Ipyikygamk[address] [place], [place] [address]Dr. Grace Abdul Monocytes/100 WBC (Bld) 14.4 % Critically high 1.7-12.0 [facility] Comment on above: Performed By: #### C BC ####[facility] Zpgoeiwcww[address] [place], [place] [address]Dr. Grace Abdul NEUT # 3.0 103/ul Normal 1.4-6.5 [facility] Comment on above: Performed By: #### C BC ####[facility] I[address]uzugzoc[address] [place], [place] [id number] Abdul Neutrophils/100 WBC (Bld) 71.5 % Normal 43.0-75.0 [facility] Comment on above: Performed By: #### C BC ####[facility] Tafaqpyuid[address] [place], [place] [address]DrLisette Abdul Platelet mean volume (Bld) [Entitic vol] 9.2 fL Critically low 9.5-13.5 [facility] Comment on above: Performed By: #### C BC ####[facility] Xkwrrtogir1374 [place], [place] [address]XgLisette Abdul PLT 290 103/ul Normal 150-450 [facility] Comment on above: Performed By: #### C BC ####[facility] Hyvbneqmtv8879 [place], [place] [address]Iy. Grace Abdul RBC 3.77 106/ul Critically low 4.20-5.40 [facility] Comment on above: Performed By: #### C BC ####[facility] Ux[address]lmevhuq2004 [place], [place] [address]Yq. Grace Abdul WBC 4.2 103/ul Normal 4.0-11.0 [facility] Comment on above: Performed By: #### C BC ####[facility] [address]wacdzvzkz[address] [place] [id number]. Grace Abdul FREE THYROXINE INDEX T7on FTI 2.63 Normal 1.30-4.50 [facility] Comment on above: Performed By: #### B MP #### [facility] [address] [address] [address] Grace Abdul T3U 35.0 % Normal 30.0-39.0 [facility] Comment on above: Performed By: #### B MP #### [facility] [address] [address] [address] Grace Abdul T4 [Mass/Vol] 7.50 ug/dL Normal 4.80-13.90 [facility] Comment on above: Performed By: #### B MP #### [facility] [address] [address] [address] Grace Abdul GLYCOHEMOGLOBIN A1Con 2021 ADA RECOMMENDATION SEE BELOW Normal [facility] Comment on above: Result Comment: ADA RECOMMENDED LIMIT 4.0 - 6.0 ADA THERAPEUTIC TARGET < 7.0 ACTION SUGGESTED > 7.0 Performed By: #### A 1C ####[facility] [address] [place] [address]Dr. Grace Abdul Glucose [Mass/Vol] 111 mg/dL Normal [facility] Comment on above: Performed By: #### A 1C ####[facility] [address]ydqzupbj[address] [place] [id number]. Grace Abdul HbA1c (Bld) [Mass fraction] 5.5 % Normal 4.5-6.2 [facility] Comment on above: Performed By: #### A 1C ####[facility] Nyohrqdqmv[address] [place] [id number]. Grace Abdul IRONon 12-11-2021 Iron [Mass/Vol] 50.0 ug/dL Normal 50.0-170.0 [facility] Comment on above: Performed By: #### I KASANDRA WEBSTER VITB12 ####[facility] [address]ev[address]xsqh[address] [place] [id number] Abdul LIPID PROFILEon 12-11-2021 CHOL-HDL RATIO NORM SEE BELOW Normal [facility] Comment on above: Result Comment: 3.3 - 4.4 LOW RISK 4.4 - 7.1 AVERAGE RISK 7.1 - 11.0 MODERATE RISK >11.0 HIGH RISK Performed By: #### B MP #### [facility] [address] [address] [address] Grace Abdul Cholesterol [Mass/Vol] 182 mg/dL Normal <=200 [facility] Comment on above: Performed By: #### B MP #### [facility] [address] [address] [address] Grace Abdul Cholesterol in HDL [Mass/Vol] 60 mg/dL Normal 40-60 [facility] Comment on above: Performed By: #### B MP #### [facility] [address] [address] [address] Grace Abdul Cholesterol in LDL [Mass/Vol] 101.2 mg/dL Normal [facility] Comment on above: Performed By: #### B MP #### [facility] [address] [address] [address] Grace Abdul Cholesterol.total/Ch olesterol in HDL [Mass ratio] 3.0 {ratio} Normal [facility] Comment on above: Performed By: #### B MP #### [facility] [address] [address] [address] Grace Abdul HDL NORMAL > or = 60 mg/dl - LO W CARDIOVASCULAR RISK <40 mg/dl - HIGH CARDIOVASCULAR RISK Normal [facility] Comment on above: Performed By: #### B MP #### [facility] [address] [address] [address] Grace Abdul LDL CALC NORMAL SEE BELOW Normal [facility] Comment on above: Result Comment: <100 mg/dl OPTIMAL 100 - 129 mg/dl NEAR OR ABOVE OPTIMAL 130 - 159 mg/dl BORDERLINE HIGH 160 - 189 mg/dl HIGH >190 mg/dl VERY HIGH Performed By: #### B MP #### [facility] [address] [place] [address] Dr. Grace Abdul Triglyceride [Mass/Vol] 104 mg/dL Normal <=150 [facility] Comment on above: Performed By: #### B MP #### [facility] [address] [address] [address] Grace Abdul VLDL CALC 20.8 mg/dL Normal [facility] Comment on above: Performed By: #### B MP #### [facility] [address] [place] [address] Dr. Grace Abdul PROF 14(COMP METB)on 022 Albumin [Mass/Vol] 3.5 g/dL Normal 3.4-5.0 [facility] Comment on above: Performed By: #### B MP #### [facility] [address] [place] [address] Dr. Grace Abdul Albumin/Globulin [Mass ratio] 1.0 {ratio} Normal [facility] Comment on above: Performed By: #### B MP #### [facility] [address] [place] [address] Dr. Grace Abdul ALP [Catalytic activity/Vol] 55 U/L Normal 46-116 [facility] Comment on above: Performed By: #### B MP #### [facility] [address] [place] [address] Dr. Grace Abdul ALT [Catalytic activity/Vol] 21 U/L Normal 14-59 [facility] Comment on above: Performed By: #### B MP #### [facility] [address] [address] [address] Grace Abdul Anion gap [Moles/Vol] 9.3 mmol/L Normal [facility] Comment on above: Performed By: #### B MP #### [facility] [address] [address] [address] Grace Abdul AST [Catalytic activity/Vol] 21 U/L Normal 15-37 [facility] Comment on above: Performed By: #### B MP #### [facility] [address] [address] [address] Grace Abdul Bilirubin [Mass/Vol] 0.3 mg/dL Normal 0.2-1.0 [facility] Comment on above: Performed By: #### B MP #### [facility] [address] [address] [address] Grace Abdul Calcium [Mass/Vol] 9.5 mg/dL Normal 8.5-10.1 [facility] Comment on above: Performed By: #### B MP #### [facility] [address] [place] [address] Dr. Grace Abdul Chloride [Moles/Vol] 102 mmol/L Normal 98-107 [facility] Comment on above: Performed By: #### B MP #### [facility] [address] [address] [address] Grace Abdul CO2 [Moles/Vol] 28.5 mmol/L Normal 21.0-32.0 [facility] Comment on above: Performed By: #### B MP #### [facility] [address] [address] [address] Grace Abdul Creatinine [Mass/Vol] 1.04 mg/dL Critically high 0.55-1.02 [facility] Comment on above: Performed By: #### B MP #### [facility] [address] [address] [address] Grace Abdul EGFR-AF NIGERIAN >60 Normal >=60 [facility] Comment on above: Performed By: #### B MP #### [facility] [address] [address] [address] Grace Abdul EGFR-NON AF NIGERIAN 51 mL/min/1.73m2 Critically low >=60 [facility] Comment on above: Performed By: #### B MP #### [facility] [address] [address] [address] Grace Abdul Globulin (S) [Mass/Vol] 3.5 g/dL Normal [facility] Comment on above: Performed By: #### B MP #### [facility] [address] [address] [address] Grace Abdul Glucose [Mass/Vol] 102 mg/dL Normal 74-106 [facility] Comment on above: Performed By: #### B MP #### [facility] [address] [address] [address] Grace Abdul Potassium [Moles/Vol] 3.8 mmol/L Normal 3.5-5.1 [facility] Comment on above: Performed By: #### B MP #### [facility] [address] [address] [address] Grace Abdul Protein [Mass/Vol] 7.0 g/dL Normal 6.4-8.2 The [facility] Comment on above: Performed By: #### B MP #### [facility] [address] [address] [address] Grace Abdul Sodium [Moles/Vol] 136 mmol/L Normal 136-145 The [facility] Comment on above: Performed By: #### B MP #### [facility] [address] [address] [address] Grace Abdul Urea nitrogen [Mass/Vol] 20.0 mg/dL Critically high 7.0-18.0 [facility] Comment on above: Performed By: #### B MP #### [facility] [address] [address] [address] Grace Abdul Urea nitrogen/Creatinine [Mass ratio] 19.2 mg/mg Normal [facility] Comment on above: Performed By: #### B MP #### [facility] [address] [address] [address] Grace Abdul TSHon 12-11-2021 TSH 0.247 uIU/mL Critically low 0.358-3.740 [facility] Comment on above: Performed By: #### B MP #### [facility] [address] [address] [address] Grace Abdul VITAMIN B12on 12-11-2021 Cobalamin (Vitamin B12) [Mass/Vol] 762.0 pg/mL Normal 193.0-986.0 [facility] Comment on above: Performed By: #### I DARIN VITAD, VITB12 ####[facility] [address] [place] [address]Dr. Grace Abdul VITAMIN D 25 OHon 12-11-2021 VIT D 25-OH 54.9 ng/mL Normal [facility] Comment on above: Performed By: #### I DARIN VITAD, VITB12 ####[facility] [address] [place] [address]DrLisette Abdul VIT D RANGES SEE BELOW Normal [facility] Comment on above: Result Comment: <20 ng/mL Vit D deficient 20 - <30 ng/mL Vit D insufficient 30 - 100 ng/mL Vit D sufficient >100 ng/mL Potential Toxicity Performed By: #### I DARIN VITAD, VITB12 ####[facility] [address] [place] [address]DrLisette Abdul MG MAMM SCREEN 3D CLEMENCIA CADon 11-25-2021 MG MAMM SCREEN 3D CLEMENCIA CAD Patient: ALEXA DELGADO Exam Date: 11/25/2021 : 1940 Gender:F Ordering : DR GALINA ROGERS . Admission #: [id number] Family : DR ARMANDO MORALES Order #: [id number] CLICK HERE TO VIEW EXAM RADIOLOGY REPORT [...] Treatments None Family Cancers None LOCATION: [facility] BREAST COMPOSITION: Scattered areas fibroglandular [...] MD on 11/25/2021 at 14:14 Normal [facility] CULTURE URINEon 11-24-2021 CULTURE URINE Culture Observations : LIGHT GROWTH OF MIXED GENITAL ALANIS. NO POTENTIAL PATHOGENS SEEN. Normal [facility] Comment on above: Performed By: #### U RCX ####[facility] [address] [place] [address]Dr. Grace Abdul GI PANEL (PCR)on 11-24-2021 Adenovirus F 40/41 Not detected Normal NOT DETECTED [facility] Comment on above: Performed By: #### C BC #### [facility] [address] [place] [address] Dr. Grace Abdul Astrovirus Not detected Normal NOT DETECTED [facility] Comment on above: Performed By: #### C BC #### [facility] [address] [place] [address] Dr. Grace Abdul C. Diff toxin A/B Not detected Normal NOT DETECTED [facility] Comment on above: Performed By: #### C BC #### [facility] [address] [address] [address] Grace Abdul Campylobacter Not detected Normal NOT DETECTED [facility] Comment on above: Performed By: #### C BC #### [facility] [address] [place] [address] Dr. Grace Abdul Cryptosporidium Not detected Normal NOT DETECTED [facility] Comment on above: Performed By: #### C BC #### [facility] [address] [place] [address] Dr. Grace Abdul Cyclos. Cayetanensis Not detected Normal NOT DETECTED [facility] Comment on above: Performed By: #### C BC #### [facility] [address] [place] [address] Dr. Grace Abdul E. Coli O157 Not Applicable Normal Not Applicable [facility] Comment on above: Performed By: #### C BC #### [facility] [address] [place] [address] Dr. Grace Abdul E. histolytica Not detected Normal NOT DETECTED The [facility] Comment on above: Performed By: #### C BC #### [facility] [address] [place] [address] Dr. Grace Abdul EAEC Not detected Normal NOT DETECTED [facility] Comment on above: Performed By: #### C BC #### [facility] [address] [place] [address] Dr. Grace Abdul EIEC Not detected Normal NOT DETECTED [facility] Comment on above: Performed By: #### C BC #### [facility] [address] [place] [address] Dr. Grace Abdul EPEC Not detected Normal NOT DETECTED [facility] Comment on above: Performed By: #### C BC #### [facility] [address] [place] [address] Dr. Grace Abdul ETEC Not detected Normal NOT DETECTED [facility] Comment on above: Performed By: #### C BC #### [facility] [address] [place] [address] Dr. Grace Abdul G. Lamblia Not detected Normal NOT DETECTED [facility] Comment on above: Performed By: #### C BC #### [facility] [address] [place] [address] Dr. Grace BURGESSL CONTROLS PASSED Normal [facility] Comment on above: Performed By: #### C BC #### [facility] [address] [place] [address] Dr. Grace NOLASCONL KAUR HEADER GI PANEL BACTERIA Normal [facility] Comment on above: Performed By: #### C BC #### [facility] [address] [address] [address] Grace SANDERS ECOLI GI PANEL DIARRHEAGEN IC E.COLI / SHIGELLA Normal [facility] Comment on above: Performed By: #### C BC #### [facility] [address] [address] [address] Grace SANDERS INFO SEE BELOW Normal [facility] Comment on above: Result Comment: EAEC - Enteroaggregative E. Coli EPEC- Enteropathogenic E. Coli ETEC- Enterotoxigenic E. Coli lt/st STEC- Shigella-like toxin-producing E. Coli stx1/stx2 EIEC- Shigella/Enteroinvasive E. Coli Performed By: #### C BC #### [facility] [address] [address] [address] Grace SANDERS PARASITES GI PANEL PARASITES Normal [facility] Comment on above: Performed By: #### C BC #### [facility] [address] [address] [address] Grace SANDERS VIRUS GI PANEL VIRUSES Normal [facility] Comment on above: Performed By: #### C BC #### [facility] [address] [address] [address] Grace Abdul Norovirus GI/GII Not detected Normal NOT DETECTED [facility] Comment on above: Performed By: #### C BC #### [facility] [address] [address] [address] Grace Abdul P. Shigelloides Not detected Normal NOT DETECTED [facility] Comment on above: Performed By: #### C BC #### [facility] [address] [address] [address] Grace Abdul Rotavirus A Not detected Normal NOT DETECTED [facility] Comment on above: Performed By: #### C BC #### [facility] [address] [address] [address] Grace Abdul Salmonella Not detected Normal NOT DETECTED [facility] Comment on above: Performed By: #### C BC #### [facility] [address] [address] [address] Grace Abdul Sapovirus Not detected Normal NOT DETECTED [facility] Comment on above: Performed By: #### C BC #### [facility] [address] [address] [address] Grace Abdul STEC Not detected Normal NOT DETECTED [facility] Comment on above: Performed By: #### C BC #### [facility] [address] [address] [address] Grace Abdul Vibrio Not detected Normal NOT DETECTED [facility] Comment on above: Performed By: #### C BC #### [facility] [address] [address] [address] Grace Abdul Vibrio Cholera Not detected Normal NOT DETECTED The [facility] Comment on above: Performed By: #### C BC #### [facility] [address] [place] [address] Dr. Grace Abdul Y. Enterocolitica Not detected Normal NOT DETECTED [facility] Comment on above: Performed By: #### C BC #### [facility] [address] [place] [address] Dr. Grace Abdul UA RANDOM W/MICROSCOPICon BACTERIA NONE SEEN Normal NONE SEEN [facility] Comment on above: Performed By: #### U AMIC ####[facility] [address] [place] [address]DrLisette Abdul Bilirubin Ql (U) Negative Normal NEGATIVE [facility] Comment on above: Performed By: #### U AMIC ####[facility] [address] [place] [address]DrLisette Abdul CAST NONE SEEN Normal NONE SEEN [facility] Comment on above: Performed By: #### U AMIC ####[facility] [address] [place], [place] [address]DrLisette Abdul Clarity (U) CLEAR Normal CLEAR [facility] Comment on above: Performed By: #### U AMIC ####[facility] [address] [place] [address]DrLisette Abdul Color (U) LT. YELLOW Normal YELLOW [facility] Comment on above: Performed By: #### U AMIC ####[facility] [address] [place] [address]Dr. Grace Abdul Crystals LM Nom (Urine sed) NONE SEEN Normal NONE SEEN [facility] Comment on above: Performed By: #### U AMIC ####[facility] [address] [place] [id number]. Grace Abdul Epithelial cells LM Ql (Urine sed) FEW Abnormal NONE SEEN /RARE [facility] Comment on above: Performed By: #### U AMIC ####[facility] [address] [place] [address]Dr. Grace Abdul Glucose Ql (U) Negative Normal NEGATIVE [facility] Comment on above: Performed By: #### U AMIC ####[facility] [address] [place] [address]Dr. Grace Abdul Hemoglobin Ql (U) TRACE-INTACT Abnormal NEGATIVE [facility] Comment on above: Performed By: #### U AMIC ####[facility] [address] [place] [address]Dr. Grace Abdul Ketones Ql (U) Negative Normal NEGATIVE [facility] Comment on above: Performed By: #### U AMIC ####[facility] [facility] [id number] [place] [address]Dr. Grace Abdul LEUKOCYTES Negative Normal NEGATIVE [facility] Comment on above: Performed By: #### U AMIC ####[facility] [address] [place] [address]Dr. Grace Abdul MUCOUS NONE SEEN Normal NONE SEEN [facility] Comment on above: Performed By: #### U AMIC ####[facility] [address] [place] [address]Dr. Grace Abdul Nitrite Ql (U) Negative Normal NEGATIVE [facility] Comment on above: Performed By: #### U AMIC ####[facility] [address] [place] [address]Dr. Grace Abdul pH (U) 7.5 [pH] Normal 5-9 [facility] Comment on above: Performed By: #### U AMIC ####[facility] [address] [place] [address]Dr. Grace Abdul RBC 0-2 Normal 0-2 [facility] Comment on above: Performed By: #### U AMIC ####[facility] [address] [place] [id number]. Grace Abdul SPEC GRAVITY 1.010 Normal 1.005-<=1.025 [facility] Comment on above: Performed By: #### U AMIC ####[facility] [address] [place] [address]Dr. Grace Abdul UA PROTEIN Negative Normal NEGATIVE/ TRACE [facility] Comment on above: Performed By: #### U AMIC ####[facility] [address] [place] [address]Dr. Grace Abdul Urobilinogen Qn (U) 0.2 {Ashley'U}/dL Normal 0.2 - 1. 0 [facility] Comment on above: Performed By: #### U AMIC ####[facility] [address] [place] [address]Dr. Grace Abdul WBC NONE SEEN Normal NONE SEEN [facility] Comment on above: Performed By: #### U AMIC ####[facility] [address] [place] [address]Dr. Grace Abdul CBC AUTO DIFFon 11-23-2021 BASO # 0.0 103/ul Normal 0.0-0.1 [facility] Comment on above: Performed By: #### C BC #### [facility] [address] [address] [address] Grace Abdul Basophils/100 WBC (Bld) 0.4 % Normal 0.2-2.0 [facility] Comment on above: Performed By: #### C BC #### [facility] [address] [address] [address] Grace Abdul EO # 0.1 103/ul Normal 0.0-0.7 [facility] Comment on above: Performed By: #### C BC #### [facility] [address] [place] [address] Dr. Grace Abdul Eosinophils/100 WBC (Bld) 1.5 % Normal 0.9-7.0 [facility] Comment on above: Performed By: #### C BC #### [facility] [address] [place] [address] Dr. Grace Abdul Erythrocyte distribution width (RBC) [Ratio] 13.2 % Normal 11.0-15.0 [facility] Comment on above: Performed By: #### C BC #### [facility] [address] [place] [address] Dr. Grace Abdul Hematocrit (Bld) [Volume fraction] 31.9 % Critically low 36.0-48.0 [facility] Comment on above: Performed By: #### C BC #### [facility] [address] [place] [address] Dr. Grace Abdul Hemoglobin (Bld) [Mass/Vol] 10.5 g/dL Critically low 12.0-16.0 [facility] Comment on above: Performed By: #### C BC #### [facility] [address] [place] [address] Dr. Grace Abdul IG # 0.01 10e3/ul Normal 0.00-0.03 [facility] Comment on above: Performed By: #### C BC #### [facility] [address] [place] [address] Dr. Grace Abdul IG % 0.2 % Normal 0.0-0.5 [facility] Comment on above: Performed By: #### C BC #### [facility] [address] [place] [address] Dr. Grace Abdul LYMPH # 0.7 103/ul Critically low 1.2-3.8 [facility] Comment on above: Performed By: #### C BC #### [facility] [address] [place] [address] Dr. Grace Abdul Lymphocytes/100 WBC (Bld) 14.8 % Critically low 20.5-60.0 [facility] Comment on above: Performed By: #### C BC #### [facility] [address] [place] [address] Dr. Grace Abdul MANUAL DIFF REQ NO Normal [facility] Comment on above: Performed By: #### C BC #### [facility] [address] [place] [address] Dr. Grace Abdul MCH (RBC) [Entitic mass] 31.4 pg Normal 26.7-34.0 [facility] Comment on above: Performed By: #### C BC #### [facility] [address] [place] [address] Dr. Grace Abdul MCHC (RBC) [Mass/Vol] 32.9 g/dL Normal 29.9-35.2 [facility] Comment on above: Performed By: #### C BC #### [facility] [address] [place] [address] Dr. Grace Abdul MCV (RBC) [Entitic vol] 95.5 fL Normal 81.0-99.0 [facility] Comment on above: Performed By: #### C BC #### [facility] [address] [place] [address] Dr. Grace Abdul MONO # 0.6 103/ul Normal 0.3-0.8 [facility] Comment on above: Performed By: #### C BC #### [facility] [address] [place] [address] Dr. Grace Abdul Monocytes/100 WBC (Bld) 13.4 % Critically high 1.7-12.0 [facility] Comment on above: Performed By: #### C BC #### [facility] [address] [place] [address] Dr. Grace Abdul NEUT # 3.3 103/ul Normal 1.4-6.5 [facility] Comment on above: Performed By: #### C BC #### [facility] [address] [place] [address] Dr. Grace Abdul Neutrophils/100 WBC (Bld) 69.7 % Normal 43.0-75.0 [facility] Comment on above: Performed By: #### C BC #### [facility] [address] [address] [address] Grace Abdul Platelet mean volume (Bld) [Entitic vol] 9.1 fL Critically low 9.5-13.5 [facility] Comment on above: Performed By: #### C BC #### [facility] [address] [address] [address] Grace Abdul PLT 335 103/ul Normal 150-450 [facility] Comment on above: Performed By: #### C BC #### [facility] [address] [address] [address] Grace Abdul RBC 3.34 106/ul Critically low 4.20-5.40 [facility] Comment on above: Performed By: #### C BC #### [facility] [address] [address] [address] Grace Abdul WBC 4.8 103/ul Normal 4.0-11.0 [facility] Comment on above: Performed By: #### C BC #### [facility] [address] [address] [address] Grace Abdul FREE THYROXINE INDEX T7on FTI 1.15 Critically low 1.30-4.50 [facility] Comment on above: Performed By: #### T 7, CMP, TSH ####[facility] [address] [place] [id number] Abdul T3U 31.0 % Normal 30.0-39.0 [facility] Comment on above: Performed By: #### T 7, CMP, TSH ####[facility] [address] [place] [id number]. Grace Abdul T4 [Mass/Vol] 3.70 ug/dL Critically low 4.80-13.90 [facility] Comment on above: Performed By: #### T 7, CMP, TSH ####[facility] [address] [place] [id number]. Grace Abdul IRONon 11-23-2021 Iron [Mass/Vol] 52.0 ug/dL Normal 50.0-170.0 [facility] Comment on above: Performed By: #### C VDTBH #### [facility] [address] [place], [place] [address] Dr. Grace Abdul PROF 14(COMP METB)on 022 Albumin [Mass/Vol] 3.5 g/dL Normal 3.4-5.0 [facility] Comment on above: Performed By: #### T 7, CMP, TSH ####[facility] [address] [place] [id number]. Grace Abdul Albumin/Globulin [Mass ratio] 1.1 {ratio} Normal [facility] Comment on above: Performed By: #### T 7, CMP, TSH ####[facility] [address] [place] [address]Dr. Grace Abdul ALP [Catalytic activity/Vol] 69 U/L Normal 46-116 [facility] Comment on above: Performed By: #### T 7, CMP, TSH ####[facility] [address] [place] [address]Dr. Grace Abdul ALT [Catalytic activity/Vol] 51 U/L Normal 14-59 [facility] Comment on above: Performed By: #### T 7, CMP, TSH ####[facility] [address] [place] [address]Dr. Grace Abdul Anion gap [Moles/Vol] 11.5 mmol/L Normal [facility] Comment on above: Performed By: #### T 7, CMP, TSH ####[facility] [address] [place] [address]Dr. Grace Abdul AST [Catalytic activity/Vol] 24 U/L Normal 15-37 [facility] Comment on above: Performed By: #### T 7, CMP, TSH ####[facility] [address] [place] [address]Dr. Grace Abdul Bilirubin [Mass/Vol] 0.2 mg/dL Normal 0.2-1.0 [facility] Comment on above: Performed By: #### T 7, CMP, TSH ####[facility] [address] [place] [address]Dr. Grace Abdul Calcium [Mass/Vol] 9.3 mg/dL Normal 8.5-10.1 The [facility] Comment on above: Performed By: #### T 7, CMP, TSH ####[facility] [address] [place] [address]Dr. Grace Abdul Chloride [Moles/Vol] 98 mmol/L Normal 98-107 [facility] Comment on above: Performed By: #### T 7, CMP, TSH ####[facility] [address] [place] [address]Dr. Grace Abdul CO2 [Moles/Vol] 28.7 mmol/L Normal 21.0-32.0 [facility] Comment on above: Performed By: #### T 7, CMP, TSH ####[facility] [address] [place], [place] [address]Dr. Grace Abdul Creatinine [Mass/Vol] 1.11 mg/dL Critically high 0.55-1.02 [facility] Comment on above: Performed By: #### T 7, CMP, TSH ####[facility] [address] [place], [place] [address]Dr. Grace Abdul EGFR-AF NIGERIAN 57 mL/min/1.73m2 Critically low >=60 [facility] Comment on above: Performed By: #### T 7, CMP, TSH ####[facility] [address] [place], [place] [address]Dr. Grace Abdul EGFR-NON AF NIGERIAN 47 mL/min/1.73m2 Critically low >=60 [facility] Comment on above: Performed By: #### T 7, CMP, TSH ####[facility] [address] [place] [address]Dr. Grace Abdul Globulin (S) [Mass/Vol] 3.3 g/dL Normal [facility] Comment on above: Performed By: #### T 7, CMP, TSH ####[facility] [address] [place] [address]Dr. Grace Abdul Glucose [Mass/Vol] 88 mg/dL Normal 74-106 The [facility] Comment on above: Performed By: #### T 7, CMP, TSH ####[facility] [address] [place] [id number]. Grace Abdul Potassium [Moles/Vol] 4.2 mmol/L Normal 3.5-5.1 [facility] Comment on above: Performed By: #### T 7, CMP, TSH ####[facility] [address] [place] [address]Dr. Grace Abdul Protein [Mass/Vol] 6.8 g/dL Normal 6.4-8.2 [facility] Comment on above: Performed By: #### T 7, CMP, TSH ####[facility] [address] [place] [address]Dr. Grace Abdul Sodium [Moles/Vol] 134 mmol/L Critically low 136-145 [facility] Comment on above: Performed By: #### T 7, CMP, TSH ####[facility] [address] [place] [address]Dr. Grace Abdul Urea nitrogen [Mass/Vol] 33.0 mg/dL Critically high 7.0-18.0 [facility] Comment on above: Performed By: #### T 7, CMP, TSH ####[facility] [address] [place] [address]Dr. Grace Abdul Urea nitrogen/Creatinine [Mass ratio] 29.7 mg/mg Normal [facility] Comment on above: Performed By: #### T 7, CMP, TSH ####[facility] [address] [place] [address]Dr. Grace Franko TSHon 11-23-2021 TSH 0.469 uIU/mL Normal 0.358-3.740 [facility] Comment on above: Performed By: #### T 7, CMP, TSH ####[facility] [address] [place] [address]Dr. Grace Abdul CBC AUTO DIFFon 11-17-2021 BASO # 0.0 103/ul Normal 0.0-0.1 [facility] Comment on above: Performed By: #### C VDTBH #### [facility] [address] [address] [address] Grace Abdul Basophils/100 WBC (Bld) 0.2 % Normal 0.2-2.0 [facility] Comment on above: Performed By: #### C VDTBH #### [facility] [address] [place] [address] Dr. Grace Abdul EO # 0.1 103/ul Normal 0.0-0.7 [facility] Comment on above: Performed By: #### C VDTBH #### [facility] [address] [place] [address] Dr. Grace Abdul Eosinophils/100 WBC (Bld) 0.9 % Normal 0.9-7.0 [facility] Comment on above: Performed By: #### C VDTBH #### [facility] [address] [place] [address] Dr. Grace Abdul Erythrocyte distribution width (RBC) [Ratio] 12.8 % Normal 11.0-15.0 [facility] Comment on above: Performed By: #### C VDTBH #### [facility] [address] [place] [address] Dr. Grace Abdul Hematocrit (Bld) [Volume fraction] 35.2 % Critically low 36.0-48.0 [facility] Comment on above: Performed By: #### C VDTBH #### [facility] [address] [place] [address] Dr. Grace Abdul Hemoglobin (Bld) [Mass/Vol] 12.1 g/dL Normal 12.0-16.0 [facility] Comment on above: Performed By: #### C VDTBH #### [facility] [address] [place] [address] Dr. Grace Abdul IG # 0.05 10e3/ul Critically high 0.00-0.03 [facility] Comment on above: Performed By: #### C VDTBH #### [facility] [address] [place] [address] Dr. Grace Abdul IG % 0.6 % Critically high 0.0-0.5 [facility] Comment on above: Performed By: #### C VDTBH #### [facility] [address] [address] [address] Grace Abdul LYMPH # 0.6 103/ul Critically low 1.2-3.8 [facility] Comment on above: Performed By: #### C VDTBH #### [facility] [address] [address] [address] Grace Abdul Lymphocytes/100 WBC (Bld) 7.4 % Critically low 20.5-60.0 [facility] Comment on above: Performed By: #### C VDTBH #### [facility] [address] [address] [address] Grace Abdul MANUAL DIFF REQ NO Normal [facility] Comment on above: Performed By: #### C VDTBH #### [facility] [address] [place] [address] Dr. Grace Abdul MCH (RBC) [Entitic mass] 31.5 pg Normal 26.7-34.0 [facility] Comment on above: Performed By: #### C VDTBH #### [facility] [address] [place] [address] Dr. Grace Abdul MCHC (RBC) [Mass/Vol] 34.4 g/dL Normal 29.9-35.2 [facility] Comment on above: Performed By: #### C VDTBH #### [facility] [address] [place] [address] Dr. Grace Abdul MCV (RBC) [Entitic vol] 91.7 fL Normal 81.0-99.0 [facility] Comment on above: Performed By: #### C VDTBH #### [facility] [address] [place] [address] Dr. Grace Abdul MONO # 1.0 103/ul Critically high 0.3-0.8 [facility] Comment on above: Performed By: #### C VDTBH #### [facility] [address] [place] [address] Dr. Grace Abdul Monocytes/100 WBC (Bld) 12.1 % Critically high 1.7-12.0 [facility] Comment on above: Performed By: #### C VDTBH #### [facility] [address] [address] [address] Grace Abdul NEUT # 6.3 103/ul Normal 1.4-6.5 [facility] Comment on above: Performed By: #### C VDTBH #### [facility] [address] [address] [address] Grace Abdul Neutrophils/100 WBC (Bld) 78.8 % Critically high 43.0-75.0 [facility] Comment on above: Performed By: #### C VDTBH #### [facility] [address] [address] [address] Grace Abdul Platelet mean volume (Bld) [Entitic vol] 9.1 fL Critically low 9.5-13.5 [facility] Comment on above: Performed By: #### C VDTBH #### [facility] [address] [place] [address] Dr. Grace Abdul PLT 281 103/ul Normal 150-450 [facility] Comment on above: Performed By: #### C VDTBH #### [facility] [address] [address] [address] Grace Abdul RBC 3.84 106/ul Critically low 4.20-5.40 [facility] Comment on above: Performed By: #### C VDTBH #### [facility] [address] [address] [address] Grace Abdul WBC 8.0 103/ul Normal 4.0-11.0 [facility] Comment on above: Performed By: #### C VDTBH #### [facility] [address] [place] [address] Dr. Grace Abdul MAGNESIUMon 11-17-2021 Magnesium [Mass/Vol] 1.9 mg/dL Normal 1.8-2.4 [facility] Comment on above: Performed By: #### C VDTBH #### [facility] [address] [place] [address] Dr. Grace Abdul PROF CHEM 8 (BAS METB)on Anion gap [Moles/Vol] 13.9 mmol/L Normal [facility] Comment on above: Performed By: #### C VDTBH #### [facility] [address] [place] [address] Dr. Grace Abdul Calcium [Mass/Vol] 8.7 mg/dL Normal 8.5-10.1 [facility] Comment on above: Performed By: #### C VDTBH #### [facility] [address] [place] [address] Dr. Grace Abdul Chloride [Moles/Vol] 101 mmol/L Normal 98-107 [facility] Comment on above: Performed By: #### C VDTBH #### [facility] [address] [place] [address] Dr. Grace Abdul CO2 [Moles/Vol] 24.3 mmol/L Normal 21.0-32.0 [facility] Comment on above: Performed By: #### C VDTBH #### [facility] [address] [place] [address] Dr. Grace Abdul Creatinine [Mass/Vol] 0.89 mg/dL Normal 0.55-1.02 [facility] Comment on above: Performed By: #### C VDTBH #### [facility] [address] [place] [address] Dr. Grace Abdul EGFR-AF NIGERIAN >60 Normal >=60 [facility] Comment on above: Performed By: #### C VDTBH #### [facility] [address] [place] [address] Dr. Grace Abdul EGFR-NON AF NIGERIAN >60 Normal >=60 [facility] Comment on above: Performed By: #### C VDTBH #### [facility] [address] [place] [address] Dr. Grace Abdul Glucose [Mass/Vol] 97 mg/dL Normal 74-106 The [facility] Comment on above: Performed By: #### C VDTBH #### [facility] [address] [place] [address] Dr. Grace Abdul Potassium [Moles/Vol] 3.2 mmol/L Critically low 3.5-5.1 [facility] Comment on above: Performed By: #### C VDTBH #### [facility] [address] [place] [address] Dr. Grace Abdul Sodium [Moles/Vol] 136 mmol/L Normal 136-145 [facility] Comment on above: Performed By: #### C VDTBH #### [facility] [address] [place] [address] Dr. Grace Abdul Urea nitrogen [Mass/Vol] 14.0 mg/dL Normal 7.0-18.0 [facility] Comment on above: Performed By: #### C VDTBH #### [facility] [address] [place] [address] Dr. Grace Abdul Urea nitrogen/Creatinine [Mass ratio] 15.7 mg/mg Normal [facility] Comment on above: Performed By: #### C VDTBH #### [facility] [address] [place] [address] Dr. Grace Abdul CBC AUTO DIFFon 11-16-2021 BASO # 0.0 103/ul Normal 0.0-0.1 [facility] Comment on above: Performed By: #### B MP #### [facility] [address] [place] [address] Dr. Grace Abdul Basophils/100 WBC (Bld) 0.2 % Normal 0.2-2.0 [facility] Comment on above: Performed By: #### B MP #### [facility] [address] [place] [address] Dr. Grace Abdul EO # 0.0 103/ul Normal 0.0-0.7 [facility] Comment on above: Performed By: #### B MP #### [facility] [address] [place] [address] Dr. Grace Abdul Eosinophils/100 WBC (Bld) 0.5 % Critically low 0.9-7.0 [facility] Comment on above: Performed By: #### B MP #### [facility] [address] [place] [address] Dr. Grace Abdul Erythrocyte distribution width (RBC) [Ratio] 12.4 % Normal 11.0-15.0 [facility] Comment on above: Performed By: #### B MP #### [facility] [address] [place] [address] Dr. Grace Abdul Hematocrit (Bld) [Volume fraction] 33.6 % Critically low 36.0-48.0 [facility] Comment on above: Performed By: #### B MP #### [facility] [address] [place] [address] Dr. Grace Abdul Hemoglobin (Bld) [Mass/Vol] 11.8 g/dL Critically low 12.0-16.0 [facility] Comment on above: Performed By: #### B MP #### [facility] [address] [place] [address] Dr. Grace Abdul IG # 0.04 10e3/ul Critically high 0.00-0.03 [facility] Comment on above: Performed By: #### B MP #### [facility] [address] [place] [address] Dr. Grace Abdul IG % 0.7 % Critically high 0.0-0.5 [facility] Comment on above: Performed By: #### B MP #### [facility] [address] [place] [address] Dr. Grace Abdul LYMPH # 0.7 103/ul Critically low 1.2-3.8 [facility] Comment on above: Performed By: #### B MP #### [facility] [address] [place] [address] Dr. Grace Abdul Lymphocytes/100 WBC (Bld) 11.1 % Critically low 20.5-60.0 [facility] Comment on above: Performed By: #### B MP #### [facility] [address] [place] [address] Dr. Grace Abdul MANUAL DIFF REQ NO Normal [facility] Comment on above: Performed By: #### B MP #### [facility] [address] [place] [address] Dr. Grace Abdul MCH (RBC) [Entitic mass] 31.5 pg Normal 26.7-34.0 [facility] Comment on above: Performed By: #### B MP #### [facility] [address] [place] [address] Dr. Grace Abdul MCHC (RBC) [Mass/Vol] 35.1 g/dL Normal 29.9-35.2 [facility] Comment on above: Performed By: #### B MP #### [facility] [address] [place] [address] Dr. Grace Abdul MCV (RBC) [Entitic vol] 89.6 fL Normal 81.0-99.0 [facility] Comment on above: Performed By: #### B MP #### [facility] [address] [place] [address] Dr. Grace Abdul MONO # 0.9 103/ul Critically high 0.3-0.8 [facility] Comment on above: Performed By: #### B MP #### [facility] [address] [place] [address] Dr. Grace Abdul Monocytes/100 WBC (Bld) 14.0 % Critically high 1.7-12.0 [facility] Comment on above: Performed By: #### B MP #### [facility] [address] [place] [address] Dr. Grace Abdul NEUT # 4.5 103/ul Normal 1.4-6.5 [facility] Comment on above: Performed By: #### B MP #### [facility] [address] [place] [address] Dr. Grace Abdul Neutrophils/100 WBC (Bld) 73.5 % Normal 43.0-75.0 [facility] Comment on above: Performed By: #### B MP #### [facility] [address] [place] [address] Dr. Grace Abdul Platelet mean volume (Bld) [Entitic vol] 9.3 fL Critically low 9.5-13.5 [facility] Comment on above: Performed By: #### B MP #### [facility] [address] [place] [address] Dr. Grace Abdul PLT 292 103/ul Normal 150-450 [facility] Comment on above: Performed By: #### B MP #### [facility] [address] [address] [address] Grace Abdul RBC 3.75 106/ul Critically low 4.20-5.40 [facility] Comment on above: Performed By: #### B MP #### [facility] [address] [address] [address] Grace Abdul WBC 6.1 103/ul Normal 4.0-11.0 [facility] Comment on above: Performed By: #### B MP #### [facility] [address] [address] [address] Grace Abdul CULTURE URINEon 11-16-2021 CULTURE URINE Culture Observations : LIGHT GROWTH OF MIXED GENITAL ALANIS. NO POTENTIAL PATHOGENS SEEN. Normal [facility] Comment on above: Performed By: #### U RCX ####[facility] [address] [address]Dr. Grace Abdul ER URINE PROFILEon Bilirubin Ql (U) Negative Normal NEGATIVE [facility] Comment on above: Performed By: #### C VDTBH #### [facility] [address] [place] [address] Dr. Grace Abdul Clarity (U) CLEAR Normal CLEAR [facility] Comment on above: Performed By: #### C VDTBH #### [facility] [address] [address] [address] Grace Abdul Color (U) LT. YELLOW Normal YELLOW [facility] Comment on above: Performed By: #### C VDTBH #### [facility] [address] [place] [address] Dr. Grace Abdul ERUAHD A micrscopic examination will be performed if indicated. Normal [facility] Comment on above: Performed By: #### C VDTBH #### [facility] [address] [address] [address] Grace Abdul Glucose Ql (U) Negative Normal NEGATIVE [facility] Comment on above: Performed By: #### C VDTBH #### [facility] [address] [place] [address] Dr. Grace Abdul Hemoglobin Ql (U) SMALL Abnormal NEGATIVE [facility] Comment on above: Performed By: #### C VDTBH #### [facility] [address] [place] [address] Dr. Grace Abdul Ketones Ql (U) 40 mg/dl Abnormal NEGATIVE [facility] Comment on above: Performed By: #### C VDTBH #### [facility] [address] [place] [address] Dr. Grace Abdul LEUKOCYTES SMALL Abnormal NEGATIVE [facility] Comment on above: Performed By: #### C VDTBH #### [facility] [address] [place] [address] Dr. Grace Abdul Nitrite Ql (U) Negative Normal NEGATIVE [facility] Comment on above: Performed By: #### C VDTBH #### [facility] [address] [place] [address] Dr. Grace Abdul pH (U) 7.0 [pH] Normal 5-9 [facility] Comment on above: Performed By: #### C VDTB #### [facility] [address] [place] [address] Dr. Grace Abdul SPEC GRAVITY 1.010 Normal 1.005-<=1.025 [facility] Comment on above: Performed By: #### C VDTBH #### [facility] [address] [place] [address] Dr. Grace Abdul UA PROTEIN Negative Normal NEGATIVE/ TRACE [facility] Comment on above: Performed By: #### C VDTBH #### [facility] [address] [place] [address] Dr. Grace Abdul UR MICRO IND INDICATED Normal [facility] Comment on above: Performed By: #### C VDTBH #### [facility] [address] [place] [address] Dr. Grace Abdul Urobilinogen Qn (U) 0.2 {Ashley'U}/dL Normal 0.2 - 1. 0 [facility] Comment on above: Performed By: #### C VDTBH #### [facility] [address] [place] [address] Dr. Grace Abdul MAGNESIUMon 11-16-2021 Magnesium [Mass/Vol] 1.8 mg/dL Normal 1.8-2.4 [facility] Comment on above: Performed By: #### C VDTBH #### [facility] [address] [place] [address] Dr. Grace Abdul PROF CHEM 8 (BAS METB)on Anion gap [Moles/Vol] 12.7 mmol/L Normal [facility] Comment on above: Performed By: #### B MP #### [facility] [address] [place] [address] Dr. Grace Abdul Calcium [Mass/Vol] 8.3 mg/dL Critically low 8.5-10.1 [facility] Comment on above: Performed By: #### B MP #### [facility] [address] [place] [address] Dr. Grace Abdul CO2 [Moles/Vol] 24.4 mmol/L Normal 21.0-32.0 [facility] Comment on above: Performed By: #### B MP #### [facility] [address] [place] [address] Dr. Grace Abdul Creatinine [Mass/Vol] 1.16 mg/dL Critically high 0.55-1.02 [facility] Comment on above: Performed By: #### B MP #### [facility] [address] [place] [address] Dr. Grace Abdul EGFR-AF NIGERIAN 54 mL/min/1.73m2 Critically low >=60 [facility] Comment on above: Performed By: #### B MP #### [facility] [address] [place] [address] Dr. Grace Abdul EGFR-NON AF NIGERIAN 45 mL/min/1.73m2 Critically low >=60 [facility] Comment on above: Performed By: #### B MP #### [facility] [address] [place] [address] Dr. Grace Abdul Glucose [Mass/Vol] 116 mg/dL Critically high 74-106 [facility] Comment on above: Performed By: #### B MP #### [facility] [address] [address] [address] Grace Abdul Urea nitrogen [Mass/Vol] 20.0 mg/dL Critically high 7.0-18.0 [facility] Comment on above: Performed By: #### B MP #### [facility] [address] [address] [address] Grace Abdul Urea nitrogen/Creatinine [Mass ratio] 17.2 mg/mg Normal [facility] Comment on above: Performed By: #### B MP #### [facility] [address] [address] [address] Grace Abdul Anion gap [Moles/Vol] 10.0 mmol/L Normal [facility] Comment on above: Performed By: #### B MP #### [facility] [address] [address] [address] Grace Abdul Calcium [Mass/Vol] 8.8 mg/dL Normal 8.5-10.1 [facility] Comment on above: Performed By: #### B MP #### [facility] [address] [address] [address] Grace Abdul Chloride [Moles/Vol] 96 mmol/L Critically low 98-107 [facility] Comment on above: Performed By: #### B MP #### [facility] [address] [address] [address] Grace Abdul CO2 [Moles/Vol] 26.1 mmol/L Normal 21.0-32.0 [facility] Comment on above: Performed By: #### B MP #### [facility] [address] [address] [address] Grace Abdul Creatinine [Mass/Vol] 1.11 mg/dL Critically high 0.55-1.02 [facility] Comment on above: Performed By: #### B MP #### [facility] [address] [address] [address] Grace Abdul EGFR-AF NIGERIAN 57 mL/min/1.73m2 Critically low >=60 [facility] Comment on above: Performed By: #### B MP #### [facility] [address] [address] [address] Grace Abdul EGFR-NON AF NIGERIAN 47 mL/min/1.73m2 Critically low >=60 [facility] Comment on above: Performed By: #### B MP #### [facility] [address] [address] [address] Grace Abdul Glucose [Mass/Vol] 94 mg/dL Normal 74-106 [facility] Comment on above: Performed By: #### B MP #### [facility] [address] [address] [address] Grace Abdul Potassium [Moles/Vol] 3.1 mmol/L Critically low 3.5-5.1 [facility] Comment on above: Performed By: #### B MP #### [facility] [address] [address] [address] Grace Abdul Performed By: #### C VDTBH #### [facility] [address] [address] [address] Grace Abdul Sodium [Moles/Vol] 129 mmol/L Critically low 136-145 [facility] Comment on above: Performed By: #### B MP #### [facility] [address] [address] [address] Grace Abdul Urea nitrogen [Mass/Vol] 16.0 mg/dL Normal 7.0-18.0 [facility] Comment on above: Performed By: #### B MP #### [facility] [address] [address] [address] Grace Abdul Urea nitrogen/Creatinine [Mass ratio] 14.4 mg/mg Normal [facility] Comment on above: Performed By: #### B MP #### [facility] [address] [address] [address] Grace Abdul Anion gap [Moles/Vol] 12.6 mmol/L Normal [facility] Comment on above: Performed By: #### C VDTBH #### [facility] [address] [address] [address] Grace Abdul Calcium [Mass/Vol] 8.6 mg/dL Normal 8.5-10.1 [facility] Comment on above: Performed By: #### C VDTBH #### [facility] [address] [place] [address] Dr. Grace Abdul Chloride [Moles/Vol] 95 mmol/L Critically low 98-107 [facility] Comment on above: Performed By: #### B MP #### [facility] [address] [place] [address] Dr. Grace Abdul Performed By: #### C VDTBH #### [facility] [address] [place] [address] Dr. Grace Abdul CO2 [Moles/Vol] 22.5 mmol/L Normal 21.0-32.0 [facility] Comment on above: Performed By: #### C VDTBH #### [facility] [address] [place] [address] Dr. Grace Abdul Creatinine [Mass/Vol] 0.95 mg/dL Normal 0.55-1.02 [facility] Comment on above: Performed By: #### C VDTBH #### [facility] [address] [place] [address] Dr. Grace Abdul EGFR-AF NIGERIAN >60 Normal >=60 [facility] Comment on above: Performed By: #### C VDTBH #### [facility] [address] [place] [address] Dr. Grace Abdul EGFR-NON AF NIGERIAN 56 mL/min/1.73m2 Critically low >=60 [facility] Comment on above: Performed By: #### C VDTBH #### [facility] [address] [place] [address] Dr. Grace Abdul Glucose [Mass/Vol] 92 mg/dL Normal 74-106 The [facility] Comment on above: Performed By: #### C VDTBH #### [facility] [address] [place] [address] Dr. Grace Abdul Sodium [Moles/Vol] 127 mmol/L Critically low 136-145 [facility] Comment on above: Performed By: #### C VDTBH #### [facility] [address] [place] [address] Dr. Grace Abdul Urea nitrogen [Mass/Vol] 18.0 mg/dL Normal 7.0-18.0 [facility] Comment on above: Performed By: #### C VDTBH #### [facility] [address] [place] [address] Dr. Grace Abdul Urea nitrogen/Creatinine [Mass ratio] 18.9 mg/mg Normal [facility] Comment on above: Performed By: #### C VDTBH #### [facility] [address] [place] [address] Dr. Grace Abdul URINE MICROSCOPIC ONLYon BACTERIA TRACE Abnormal NONE SEEN [facility] Comment on above: Performed By: #### C VDTBH #### [facility] [address] [place] [address] Dr. Grace Abdul Bacteria identified Cx Nom (U) INDICATED Normal [facility] Comment on above: Performed By: #### C VDTBH #### [facility] [address] [place] [address] Dr. Grace Abdul CAST NONE SEEN Normal NONE SEEN [facility] Comment on above: Performed By: #### C VDTBH #### [facility] [address] [place] [address] Dr. Grace Abdul Crystals LM Nom (Urine sed) NONE SEEN Normal NONE SEEN [facility] Comment on above: Performed By: #### C VDTBH #### [facility] [address] [place] [address] Dr. Grace Abdul Epithelial cells LM Ql (Urine sed) FEW Abnormal NONE SEEN /RARE [facility] Comment on above: Performed By: #### C VDTBH #### [facility] [address] [place] [address] Dr. Grace Abdul MUCOUS NONE SEEN Normal NONE SEEN [facility] Comment on above: Performed By: #### C VDTBH #### [facility] [address] [place] [address] Dr. Grace Abdul RBC 2-5 Abnormal 0-2 [facility] Comment on above: Performed By: #### C VDTBH #### [facility] [address] [place] [address] Dr. Grace Abdul WBC 5-10 Abnormal NONE SEEN [facility] Comment on above: Performed By: #### C VDTBH #### [facility] [address] [place] [address] Dr. Grace Abdul AMYLASEon 11-15-2021 Amylase [Catalytic activity/Vol] 94 U/L Normal 25-115 [facility] Comment on above: Performed By: #### C VDTBH #### [facility] [address] [place] [address] Dr. Grace Abdul BNPon 11-15-2021 Natriuretic peptide B (Bld) [Mass/Vol] 357.0 pg/mL Normal <=1,800.0 [facility] Comment on above: Performed By: #### C VDTBH #### [facility] [address] [place] [address] Dr. Grace Abdul CARDIAC JOVITA ADMITon 022 CK [Catalytic activity/Vol] 66 U/L Normal 26-192 [facility] Comment on above: Performed By: #### C VDTBH #### [facility] [address] [place] [address] Dr. Grace Abdul CK.MB [Mass/Vol] 2.19 ng/mL Normal <=3.60 [facility] Comment on above: Performed By: #### C VDTBH #### [facility] [address] [place] [address] Dr. Grace Abdul HSTROP 9.5 pg/mL Normal 4.0-51.3 [facility] Comment on above: Result Comment: CUT- OFF POINTS HAVE BEEN ESTABLISHED BASED ON THE FOURTH UNIVERSAL DEFINITIONS OF MYOCARDIAL INFARCTION. THE UPPER REFERENCE LIMIT (URL) OF TROPONIN, DEFINED THE 99TH PERCENTILE OF cTnI DISTRIBUTION IN A REFERENCE POPULATION, HAS BEEN CONFIRMED THE DECISION THRESHOLD FOR UT DIAGNOSIS. Performed By: #### C VDTBH #### [facility] [address] [place] [address] Dr. Grace Abdul JOHNNA 73 ng/mL Normal 9-82 [facility] Comment on above: Performed By: #### C VDTB #### [facility] [address] [place] [address] Dr. Grace Abdul CBC AUTO DIFFon 11-15-2021 BASO # 0.0 103/ul Normal 0.0-0.1 [facility] Comment on above: Performed By: #### B MP #### [facility] [address] [place] [address] Dr. Grace Abdul Basophils/100 WBC (Bld) 0.1 % Critically low 0.2-2.0 [facility] Comment on above: Performed By: #### B MP #### [facility] [address] [place] [address] Dr. Grace Abdul EO # 0.0 103/ul Normal 0.0-0.7 [facility] Comment on above: Performed By: #### B MP #### [facility] [address] [place] [address] Dr. Grace Abdul Eosinophils/100 WBC (Bld) 0.1 % Critically low 0.9-7.0 [facility] Comment on above: Performed By: #### B MP #### [facility] [address] [place] [address] Dr. Grace Abdul Erythrocyte distribution width (RBC) [Ratio] 11.9 % Normal 11.0-15.0 [facility] Comment on above: Performed By: #### B MP #### [facility] [address] [place] [address] Dr. Grace Abdul Hematocrit (Bld) [Volume fraction] 36.6 % Normal 36.0-48.0 [facility] Comment on above: Performed By: #### B MP #### [facility] [address] [place] [address] Dr. Grace Abdul Hemoglobin (Bld) [Mass/Vol] 13.2 g/dL Normal 12.0-16.0 [facility] Comment on above: Performed By: #### B MP #### [facility] [address] [place], [place] [id number] Dr. Grace Abdul IG # 0.05 10e3/ul Critically high 0.00-0.03 [facility] Comment on above: Performed By: #### B MP #### [facility] [address] [place] [address] Dr. Grace Abdul IG % 0.7 % Critically high 0.0-0.5 [facility] Comment on above: Performed By: #### B MP #### [facility] [address] [place] [address] Dr. Grace Abdul LYMPH # 0.7 103/ul Critically low 1.2-3.8 [facility] Comment on above: Performed By: #### B MP #### [facility] [address] [place] [address] Dr. Grace Abdul Lymphocytes/100 WBC (Bld) 9.8 % Critically low 20.5-60.0 [facility] Comment on above: Performed By: #### B MP #### [facility] [address] [place] [address] Dr. Grace Abdul MANUAL DIFF REQ NO Normal [facility] Comment on above: Performed By: #### B MP #### [facility] [address] [place] [address] Dr. Grace Abdul MCH (RBC) [Entitic mass] 31.5 pg Normal 26.7-34.0 [facility] Comment on above: Performed By: #### B MP #### [facility] [address] [place] [address] Dr. Grace Abdul MCHC (RBC) [Mass/Vol] 36.1 g/dL Critically high 29.9-35.2 [facility] Comment on above: Performed By: #### B MP #### [facility] [address] [place] [address] Dr. Grace Abdul MCV (RBC) [Entitic vol] 87.4 fL Normal 81.0-99.0 [facility] Comment on above: Performed By: #### B MP #### [facility] [address] [place] [address] Dr. Grace Abdul MONO # 0.9 103/ul Critically high 0.3-0.8 [facility] Comment on above: Performed By: #### B MP #### [facility] [address] [address] [address] Grace Abdul Monocytes/100 WBC (Bld) 12.4 % Critically high 1.7-12.0 [facility] Comment on above: Performed By: #### B MP #### [facility] [address] [address] [address] Grace Abdul NEUT # 5.8 103/ul Normal 1.4-6.5 [facility] Comment on above: Performed By: #### B MP #### [facility] [address] [place] [address] Dr. Grace Abdul Neutrophils/100 WBC (Bld) 76.9 % Critically high 43.0-75.0 [facility] Comment on above: Performed By: #### B MP #### [facility] [address] [place] [address] Dr. Grace Abdul Platelet mean volume (Bld) [Entitic vol] 9.0 fL Critically low 9.5-13.5 [facility] Comment on above: Performed By: #### B MP #### [facility] [address] [place] [address] Dr. Grace Abdul PLT 361 103/ul Normal 150-450 [facility] Comment on above: Performed By: #### B MP #### [facility] [address] [address] [address] Grace Abdul RBC 4.19 106/ul Critically low 4.20-5.40 [facility] Comment on above: Performed By: #### B MP #### [facility] [address] [place] [address] Dr. Grace Abdul WBC 7.6 103/ul Normal 4.0-11.0 [facility] Comment on above: Performed By: #### B MP #### [facility] [address] [place] [address] Dr. Grace Abdul [facility]23 SARS-CoV-2 (COVID-19) RNA LUISITO+probe Ql (Unsp spec) Not detected Normal NOT DETECTED [facility] Comment on above: Result Comment: [...] for this test is supported by the [employer] of [employer] and Human Service's declaration that [...] used). Performed By: #### C VDTBH #### [facility] [address] [place] [address] Dr. Grace Abdul LIPASEon 11-15-2021 Lipase [Catalytic activity/Vol] 178.0 U/L Normal 73.0-393.0 [facility] Comment on above: Performed By: #### C VDTB #### [facility] [address] [place] [address] Dr. Grace Abdul PROF 14(COMP METB)on 022 Albumin [Mass/Vol] 4.1 g/dL Normal 3.4-5.0 [facility] Comment on above: Performed By: #### C VDTBH #### [facility] [address] [place] [address] Dr. Grace Abdul Albumin/Globulin [Mass ratio] 1.2 {ratio} Normal [facility] Comment on above: Performed By: #### C VDTBH #### [facility] [address] [place] [address] Dr. Grace Abdul ALP [Catalytic activity/Vol] 63 U/L Normal 46-116 [facility] Comment on above: Performed By: #### C VDTBH #### [facility] [address] [address] [address] Grace Abdul ALT [Catalytic activity/Vol] 29 U/L Normal 14-59 [facility] Comment on above: Performed By: #### C VDTBH #### [facility] [address] [address] [address] Grace Abdul Anion gap [Moles/Vol] 14.8 mmol/L Normal [facility] Comment on above: Performed By: #### C VDTBH #### [facility] [address] [address] [address] Grace Abdul AST [Catalytic activity/Vol] 25 U/L Normal 15-37 [facility] Comment on above: Performed By: #### C VDTBH #### [facility] [address] [address] [address] Grace Abdul Bilirubin [Mass/Vol] 0.6 mg/dL Normal 0.2-1.0 [facility] Comment on above: Performed By: #### C VDTBH #### [facility] [address] [address] [address] Grace Abdul Calcium [Mass/Vol] 9.4 mg/dL Normal 8.5-10.1 [facility] Comment on above: Performed By: #### C VDTBH #### [facility] [facility] [address] [address] [address] Grace Abdul Chloride [Moles/Vol] 83 mmol/L Critically low 98-107 [facility] Comment on above: Performed By: #### C VDTBH #### [facility] [address] [address] [address] Grace Abdul CO2 [Moles/Vol] 24.4 mmol/L Normal 21.0-32.0 [facility] Comment on above: Performed By: #### C VDTBH #### [facility] [address] [address] [address] Grace Abdul Creatinine [Mass/Vol] 1.15 mg/dL Critically high 0.55-1.02 [facility] Comment on above: Performed By: #### C VDTBH #### [facility] [address] [address] [address] Grace Abdul EGFR-AF NIGERIAN 55 mL/min/1.73m2 Critically low >=60 [facility] Comment on above: Performed By: #### C VDTBH #### [facility] [address] [address] [address] Grace Abdul EGFR-NON AF NIGERIAN 45 mL/min/1.73m2 Critically low >=60 [facility] Comment on above: Performed By: #### C VDTBH #### [facility] [address] [address] [address] Grace Abdul Globulin (S) [Mass/Vol] 3.4 g/dL Normal [facility] Comment on above: Performed By: #### C VDTBH #### [facility] [address] [place] [address] Dr. Grace Abdul Glucose [Mass/Vol] 147 mg/dL Critically high 74-106 [facility] Comment on above: Performed By: #### C VDTBH #### [facility] [address] [address] [address] Grace Abdul Potassium [Moles/Vol] 3.2 mmol/L Critically low 3.5-5.1 [facility] Comment on above: Performed By: #### C VDTBH #### [facility] [address] [place] [address] Dr. Grace Abdul Protein [Mass/Vol] 7.5 g/dL Normal 6.4-8.2 [facility] Comment on above: Performed By: #### C VDTBH #### [facility] [address] [place] [address] Dr. Grace Abdul Urea nitrogen/Creatinine [Mass ratio] 21.7 mg/mg Normal [facility] Comment on above: Performed By: #### C VDTBH #### [facility] [address] [address] [address] Grace Abdul PROF CHEM 8 (BAS METB)on Anion gap [Moles/Vol] 13.6 mmol/L Normal [facility] Comment on above: Performed By: #### C VDTBH #### [facility] [address] [place] [address] Dr. Grace Abdul Calcium [Mass/Vol] 8.8 mg/dL Normal 8.5-10.1 [facility] Comment on above: Performed By: #### C VDTBH #### [facility] [address] [address] [address] Grace Abdul Chloride [Moles/Vol] 88 mmol/L Critically low 98-107 [facility] Comment on above: Performed By: #### C VDTBH #### [facility] [address] [place] [address] Dr. Grace Abdul CO2 [Moles/Vol] 21.8 mmol/L Normal 21.0-32.0 [facility] Comment on above: Performed By: #### C VDTBH #### [facility] [address] [place] [address] Dr. Grace Abdul Creatinine [Mass/Vol] 1.11 mg/dL Critically high 0.55-1.02 [facility] Comment on above: Performed By: #### C VDTBH #### [facility] [address] [place] [address] Dr. Grace Abdul EGFR-AF NIGERIAN 57 mL/min/1.73m2 Critically low >=60 [facility] Comment on above: Performed By: #### C VDTBH #### [facility] [address] [place] [address] Dr. Grace Abdul EGFR-NON AF NIGERIAN 47 mL/min/1.73m2 Critically low >=60 [facility] Comment on above: Performed By: #### C VDTBH #### [facility] [address] [place] [address] Dr. Grace Abdul Glucose [Mass/Vol] 132 mg/dL Critically high 74-106 [facility] Comment on above: Performed By: #### C VDTBH #### [facility] [address] [place] [address] Dr. Grace Abdul Potassium [Moles/Vol] 3.4 mmol/L Critically low 3.5-5.1 [facility] Comment on above: Performed By: #### C VDTBH #### [facility] [address] [place] [address] Dr. Grace Abdul Sodium [Moles/Vol] 120 mmol/L Critically low 136-145 [facility] Comment on above: Result Comment: Test Repeated. Critical Value Verified Performed By: #### C VDTBH #### [facility] [address] [place] [address] Dr. Grace Abdul Urea nitrogen [Mass/Vol] 25.0 mg/dL Critically high 7.0-18.0 [facility] Comment on above: Performed By: #### C VDTBH #### [facility] [address] [place] [address] Dr. Grace Abdul Urea nitrogen/Creatinine [Mass ratio] 22.5 mg/mg Normal [facility] Comment on above: Performed By: #### C VDTBH #### [facility] [address] [place] [address] Dr. Grace Abdul PROTIMEon 11-15-2021 INR Coag (PPP) [Relative time] 0.94 {INR} Normal [facility] Comment on above: Performed By: #### C VDTBH #### [facility] [address] [place] [address] Dr. Grace Abdul INR GUIDELINES SEE BELOW Normal [facility] Comment on above: Result Comment: DURAN RED INR: 2.0 - 3.0 CONDITIONS NOT LISTED BELOW 2.5 - 3.5 FOR PROSTHETIC HEART VALVE REPLACEMENT 2.5 - 3.5 RECURRENT THROMBOSIS Performed By: #### C VDTBH #### [facility] [address] [place] [address] Dr. Grace Abdul PT Coag (PPP) [Time] 10.2 s Normal 9.0-11.6 [facility] Comment on above: Performed By: #### C VDTBH #### [facility] [address] [place] [address] Dr. Grace Abdul XR ABD FLAT UP_PA [...] 2. Lungs are clear. Electronically authenticated by: JARTE LINARES Date: 2021-11-15 13:56 Normal [facility] BNPon 11-11-2021 Natriuretic peptide B (Bld) [Mass/Vol] 546.0 pg/mL Normal <=1,800.0 [facility] Comment on above: Performed By: #### C MP, TSH, HSTROPN, BNP ####[facility] [address] [address]. Grace Abdul CBC AUTO DIFFon 11-11-2021 BASO # 0.0 103/ul Normal 0.0-0.1 [facility] Comment on above: Performed By: #### C BC #### [facility] [address] [address] [address] Grace Abdul Basophils/100 WBC (Bld) 0.3 % Normal 0.2-2.0 [facility] Comment on above: Performed By: #### C BC #### [facility] [address] [address] [address] Grace Abdul EO # 0.0 103/ul Normal 0.0-0.7 [facility] Comment on above: Performed By: #### C BC #### [facility] [address] [address] [address] Grace Abdul Eosinophils/100 WBC (Bld) 0.5 % Critically low 0.9-7.0 [facility] Comment on above: Performed By: #### C BC #### [facility] [address] [place] [address] Dr. Grace Abdul Erythrocyte distribution width (RBC) [Ratio] 12.9 % Normal 11.0-15.0 [facility] Comment on above: Performed By: #### C BC #### [facility] [address] [place] [address] Dr. Grace Abdul Hematocrit (Bld) [Volume fraction] 36.1 % Normal 36.0-48.0 [facility] Comment on above: Performed By: #### C BC #### [facility] [address] [place] [address] Dr. Grace Abdlu Hemoglobin (Bld) [Mass/Vol] 12.3 g/dL Normal 12.0-16.0 [facility] Comment on above: Performed By: #### C BC #### [facility] [address] [place] [address] Dr. Grace Abdul IG # 0.01 10e3/ul Normal 0.00-0.03 [facility] Comment on above: Performed By: #### C BC #### [facility] [address] [place] [address] Dr. Grace Abdul IG % 0.3 % Normal 0.0-0.5 [facility] Comment on above: Performed By: #### C BC #### [facility] [address] [place] [address] Dr. Grace Abdul LYMPH # 0.6 103/ul Critically low 1.2-3.8 [facility] Comment on above: Performed By: #### C BC #### [facility] [address] [place] [address] Dr. Grace Abdul Lymphocytes/100 WBC (Bld) 14.8 % Critically low 20.5-60.0 [facility] Comment on above: Performed By: #### C BC #### [facility] [address] [place] [address] Dr. Grace Abdul MANUAL DIFF REQ NO Normal [facility] Comment on above: Performed By: #### C BC #### [facility] [address] [place] [address] Dr. Grace Abdul MCH (RBC) [Entitic mass] 31.5 pg Normal 26.7-34.0 [facility] Comment on above: Performed By: #### C BC #### [facility] [address] [place] [address] Dr. Grace Abdul MCHC (RBC) [Mass/Vol] 34.1 g/dL Normal 29.9-35.2 [facility] Comment on above: Performed By: #### C BC #### [facility] [address] [place] [address] Dr. Grace Abdul MCV (RBC) [Entitic vol] 92.6 fL Normal 81.0-99.0 [facility] Comment on above: Performed By: #### C BC #### [facility] [address] [place] [address] Dr. Grace Abdul MONO # 0.5 103/ul Normal 0.3-0.8 [facility] Comment on above: Performed By: #### C BC #### [facility] [address] [place] [address] Dr. Grace Abdul Monocytes/100 WBC (Bld) 13.5 % Critically high 1.7-12.0 [facility] Comment on above: Performed By: #### C BC #### [facility] [address] [place] [address] Dr. Grace Abdul NEUT # 2.7 103/ul Normal 1.4-6.5 [facility] Comment on above: Performed By: #### C BC #### [facility] [address] [place] [address] Dr. Grace Abdul Neutrophils/100 WBC (Bld) 70.6 % Normal 43.0-75.0 [facility] Comment on above: Performed By: #### C BC #### [facility] [address] [place] [address] Dr. Grace Abdul Platelet mean volume (Bld) [Entitic vol] 9.2 fL Critically low 9.5-13.5 [facility] Comment on above: Performed By: #### C BC #### [facility] [address] [place] [address] Dr. Grace Abdul PLT 279 103/ul Normal 150-450 [facility] Comment on above: Performed By: #### C BC #### [facility] [address] [address] [address] Grace Abdul RBC 3.90 106/ul Critically low 4.20-5.40 [facility] Comment on above: Performed By: #### C BC #### [facility] [address] [address] [address] Grace Abdul WBC 3.9 103/ul Critically low 4.0-11.0 [facility] Comment on above: Performed By: #### C BC #### [facility] [address] [place] [address] Dr. Grace Abdul PROF 14(COMP METB)on 022 Albumin [Mass/Vol] 3.3 g/dL Critically low 3.4-5.0 [facility] Comment on above: Performed By: #### C MP, TSH, HSTROPN, BNP #### [facility] [address] [place] [address] Dr. Grace Abdul Albumin/Globulin [Mass ratio] 1.2 {ratio} [facility] Comment on above: Performed By: #### C MP, TSH, HSTROPN, BNP #### [facility] [address] [place] [address] Dr. Grace Abdul ALP [Catalytic activity/Vol] 60 U/L Normal 46-116 [facility] Comment on above: Performed By: #### C MP, TSH, HSTROPN, BNP #### [facility] [address] [place] [address] Dr. Grace Abdul ALT [Catalytic activity/Vol] 26 U/L Normal 14-59 [facility] Comment on above: Performed By: #### C MP, TSH, HSTROPN, BNP #### [facility] [address] [address] [address] Grace Abdul Anion gap [Moles/Vol] 14.8 mmol/L Normal [facility] Comment on above: Performed By: #### C MP, TSH, HSTROPN, BNP #### [facility] [address] [address] [address] Grace Abdul AST [Catalytic activity/Vol] 20 U/L Normal 15-37 [facility] Comment on above: Performed By: #### C MP, TSH, HSTROPN, BNP #### [facility] [address] [place] [address] Dr. Grace Abdul Bilirubin [Mass/Vol] 0.3 mg/dL Normal 0.2-1.0 [facility] Comment on above: Performed By: #### C MP, TSH, HSTROPN, BNP #### [facility] [address] [place] [address] Dr. Grace Abdlu Calcium [Mass/Vol] 8.2 mg/dL Critically low 8.5-10.1 [facility] Comment on above: Performed By: #### C MP, TSH, HSTROPN, BNP #### [facility] [address] [place] [address] Dr. Grace Abdul Chloride [Moles/Vol] 100 mmol/L Normal 98-107 [facility] Comment on above: Performed By: #### C MP, TSH, HSTROPN, BNP #### [facility] [address] [place] [address] Dr. Grace Abdul CO2 [Moles/Vol] 23.8 mmol/L Normal 21.0-32.0 [facility] Comment on above: Performed By: #### C MP, TSH, HSTROPN, BNP #### [facility] [address] [place] [address] Dr. Grace Abdul Creatinine [Mass/Vol] 1.27 mg/dL Critically high 0.55-1.02 [facility] Comment on above: Performed By: #### C MP, TSH, HSTROPN, BNP #### [facility] [address] [place] [address] Dr. Grace Abdul EGFR-AF NIGERIAN 49 mL/min/1.73m2 Critically low >=60 [facility] Comment on above: Performed By: #### C MP, TSH, HSTROPN, BNP #### [facility] [address] [place] [address] Dr. Grace Abdul EGFR-NON AF NIGERIAN 40 mL/min/1.73m2 Critically low >=60 [facility] Comment on above: Performed By: #### C MP, TSH, HSTROPN, BNP #### [facility] [address] [place] [address] Dr. Grace Abdul Globulin (S) [Mass/Vol] 2.7 g/dL Normal [facility] Comment on above: Performed By: #### C MP, TSH, HSTROPN, BNP #### [facility] [address] [place] [address] Dr. Grace Abdul Glucose [Mass/Vol] 116 mg/dL Critically high 74-106 [facility] Comment on above: Performed By: #### C MP, TSH, HSTROPN, BNP #### [facility] [address] [place] [address] Dr. Grace Abdul Potassium [Moles/Vol] 3.6 mmol/L Normal 3.5-5.1 [facility] Comment on above: Performed By: #### C MP, TSH, HSTROPN, BNP #### [facility] [address] [place] [address] Dr. Grace Abdul Protein [Mass/Vol] 6.0 g/dL Critically low 6.4-8.2 [facility] Comment on above: Performed By: #### C MP, TSH, HSTROPN, BNP #### [facility] [address] [place] [address] Dr. Grace Abdul Sodium [Moles/Vol] 135 mmol/L Critically low 136-145 Th [facility] Comment on above: Performed By: #### C MP, TSH, HSTROPN, BNP #### [facility] [address] [place] [address] Dr. Grace Abdul Urea nitrogen [Mass/Vol] 25.0 mg/dL Critically high 7.0-18.0 [facility] Comment on above: Performed By: #### C MP, TSH, HSTROPN, BNP #### [facility] [address] [place] [address] Dr. Grace Abdul Urea nitrogen/Creatinine [Mass ratio] 19.7 mg/mg Normal [facility] Comment on above: Performed By: #### C MP, TSH, HSTROPN, BNP #### [facility] [address] [place] [address] Dr. Grace Abdul PROTIMEon 11-11-2021 INR Coag (PPP) [Relative time] 0.95 {INR} Normal [facility] Comment on above: Performed By: #### B MP #### [facility] [address] [place] [address] Dr. Grace Abdul INR GUIDELINES SEE BELOW Normal [facility] Comment on above: Result Comment: DURAN RED INR: 2.0 - 3.0 CONDITIONS NOT LISTED BELOW 2.5 - 3.5 FOR PROSTHETIC HEART VALVE REPLACEMENT 2.5 - 3.5 RECURRENT THROMBOSIS Performed By: #### B MP #### [facility] [address] [place] [address] Dr. Grace Abdul PT Coag (PPP) [Time] 10.3 s Normal 9.0-11.6 [facility] Comment on above: Performed By: #### B MP #### [facility] [address] [place] [address] Dr. Grace Abdul PTTon 11-11-2021 aPTT Coag (Bld) [Time] 21.3 s Critically low 22.3-36.2 [facility] Comment on above: Performed By: #### B MP #### [facility] [address] [place] [address] Dr. Grace Abdul TROPONIN, HIGH SENSITIVITYon 11-11-2021 HSTROP 6.5 pg/mL Normal 4.0-51.3 [facility] Comment on above: Result Comment: CUT- OFF POINTS HAVE BEEN ESTABLISHED BASED ON THE FOURTH UNIVERSAL DEFINITIONS OF MYOCARDIAL INFARCTION. THE UPPER REFERENCE LIMIT (URL) OF TROPONIN, DEFINED THE 99TH PERCENTILE OF cTnI DISTRIBUTION IN A REFERENCE POPULATION, HAS BEEN CONFIRMED THE DECISION THRESHOLD FOR UT DIAGNOSIS. Performed By: #### C MP, TSH, HSTROPN, BNP #### [facility] [address] [place], [place] [address] Dr. Grace Abdul TSHon 11-11-2021 TSH 2.140 uIU/mL Normal 0.358-3.740 [facility] Comment on above: Performed By: #### C MP, TSH, HSTROPN, BNP ####[facility] [address] [place], [place] [address]EiDr. Grace Abdul XR CHEST 1 Von 11-11-2021 [...] KRANTHI CONNORS Date: 2021-11-11 13:34 Normal [facility] CARDIAC JOVITA ADMITon 022 CK [Catalytic activity/Vol] 89 U/L Normal 26-192 [facility] Comment on above: Performed By: #### C VDTBH #### [facility] [address] [address] [address] Grace Abdul CK.MB [Mass/Vol] 1.92 ng/mL Normal <=3.60 [facility] Comment on above: Performed By: #### C VDTBH #### [facility] [address] [address] [address] Grace Abdul HSTROP 5.7 pg/mL Normal 4.0-51.3 [facility] Comment on above: Result Comment: CUT- OFF POINTS HAVE BEEN ESTABLISHED BASED ON THE FOURTH UNIVERSAL DEFINITIONS OF MYOCARDIAL INFARCTION. THE UPPER REFERENCE LIMIT (URL) OF TROPONIN, DEFINED THE 99TH PERCENTILE OF cTnI DISTRIBUTION IN A REFERENCE POPULATION, HAS BEEN CONFIRMED THE DECISION THRESHOLD FOR UT DIAGNOSIS. Performed By: #### C VDTBH #### [facility] [address] [address] [address] Grace Abdul JOHNNA 86 ng/mL Critically high 9-82 [facility] Comment on above: Performed By: #### C VDTBH #### [facility] [address] [place] [address] Dr. Grace Abdul CBC AUTO DIFFon 09-13-2021 BASO # 0.0 103/ul Normal 0.0-0.1 [facility] Comment on above: Performed By: #### C VDTBH #### [facility] [address] [place] [address] Dr. Grace Abdul Basophils/100 WBC (Bld) 0.5 % Normal 0.2-2.0 [facility] Comment on above: Performed By: #### C VDTBH #### [facility] [address] [place] [address] Dr. Grace Abdul EO # 0.0 103/ul Normal 0.0-0.7 [facility] Comment on above: Performed By: #### C VDTBH #### [facility] [address] [place] [address] Dr. Grace Abdul Eosinophils/100 WBC (Bld) 0.7 % Critically low 0.9-7.0 [facility] Comment on above: Performed By: #### C VDTBH #### [facility] [address] [place] [address] Dr. Grace Abdul Erythrocyte distribution width (RBC) [Ratio] 13.2 % Normal 11.0-15.0 [facility] Comment on above: Performed By: #### C VDTBH #### [facility] [address] [place] [address] Dr. Grace Abdul Hematocrit (Bld) [Volume fraction] 34.8 % Critically low 36.0-48.0 [facility] Comment on above: Performed By: #### C VDTBH #### [facility] [address] [place] [address] Dr. Grace Abdul Hemoglobin (Bld) [Mass/Vol] 11.9 g/dL Critically low 12.0-16.0 [facility] Comment on above: Performed By: #### C VDTBH #### [facility] [address] [place] [address] Dr. Grace Abdul IG # 0.01 10e3/ul Normal 0.00-0.03 [facility] Comment on above: Performed By: #### C VDTBH #### [facility] [address] [place] [address] Dr. Grace Abdul IG % 0.2 % Normal 0.0-0.5 [facility] Comment on above: Performed By: #### C VDTBH #### [facility] [address] [place] [address] Dr. Grace Abdul LYMPH # 0.6 103/ul Critically low 1.2-3.8 [facility] Comment on above: Performed By: #### C VDTBH #### [facility] [address] [place] [address] Dr. Grace Abdul Lymphocytes/100 WBC (Bld) 14.2 % Critically low 20.5-60.0 [facility] Comment on above: Performed By: #### C VDTBH #### [facility] [address] [place] [address] Dr. Grace Abdul MANUAL DIFF REQ NO Normal [facility] Comment on above: Performed By: #### C VDTBH #### [facility] [address] [place] [address] Dr. Grace Abdul MCH (RBC) [Entitic mass] 31.5 pg Normal 26.7-34.0 [facility] Comment on above: Performed By: #### C VDTBH #### [facility] [address] [place] [address] Dr. Grace Abdul MCHC (RBC) [Mass/Vol] 34.2 g/dL Normal 29.9-35.2 [facility] Comment on above: Performed By: #### C VDTBH #### [facility] [address] [place] [address] Dr. Grace Abdul MCV (RBC) [Entitic vol] 92.1 fL Normal 81.0-99.0 [facility] Comment on above: Performed By: #### C VDTBH #### [facility] [address] [address] [address] Grace Abdul MONO # 0.7 103/ul Normal 0.3-0.8 [facility] Comment on above: Performed By: #### C VDTBH #### [facility] [address] [place] [address] Dr. Grace Abdul Monocytes/100 WBC (Bld) 15.6 % Critically high 1.7-12.0 [facility] Comment on above: Performed By: #### C VDTBH #### [facility] [address] [place] [address] Dr. Grace Abdul NEUT # 3.0 103/ul Normal 1.4-6.5 [facility] Comment on above: Performed By: #### C VDTBH #### [facility] [address] [place] [address] Dr. Grace Abdul Neutrophils/100 WBC (Bld) 68.8 % Normal 43.0-75.0 [facility] Comment on above: Performed By: #### C VDTBH #### [facility] Laboratory [address] [place] [address] Dr. Grace Abdul Platelet mean volume (Bld) [Entitic vol] 9.5 fL Normal 9.5-13.5 [facility] Comment on above: Performed By: #### C VDTBH #### [facility] [address] [place] [address] Dr. Grace Abdul PLT 303 103/ul Normal 150-450 [facility] Comment on above: Performed By: #### C VDTBH #### [facility] [address] [place] [address] Dr. Grace Abdul RBC 3.78 106/ul Critically low 4.20-5.40 [facility] Comment on above: Performed By: #### C VDTBH #### [facility] [address] [place] [address] Dr. Grace Abdul WBC 4.4 103/ul Normal 4.0-11.0 [facility] Comment on above: Performed By: #### C VDTB #### [facility] [address] HEAD WO CONon 09-13-2021 CT HEAD [...] KRANTHI CONNORS Date: 2021-09-13 13:24 Normal [facility]22 SARS-CoV-2 (COVID-19) RNA LUISITO+probe Ql (Unsp spec) Not detected Normal NOT DETECTED [facility] Comment on above: Result Comment: [...] for this test is supported by the Manometer Technician of Health and Human Service's declaration that [...] used). Performed By: #### C VDTB #### [facility] [address] [place] [address] Dr. Grace Abdul ER URINE PROFILEon 2 Bilirubin Ql (U) Negative Normal NEGATIVE [facility] Comment on above: Performed By: #### B MP #### [facility] [address] [place] [address] Dr. Grace Abdul Clarity (U) CLEAR Normal CLEAR [facility] Comment on above: Performed By: #### B MP #### [facility] [address] [place] [address] Dr. Grace Abdul Color (U) LT. YELLOW Normal YELLOW [facility] Comment on above: Performed By: #### B MP #### [facility] [address] [place] [address] Dr. Grace HIGGINS A micrscopic examination will be performed if indicated. Normal [facility] Comment on above: Performed By: #### B MP #### [facility] [address] [place] [address] Dr. Grace Abdul Glucose Ql (U) Negative Normal NEGATIVE [facility] Comment on above: Performed By: #### B MP #### [facility] [address] [place] [address] Dr. Grace Abdul Hemoglobin Ql (U) Negative Normal NEGATIVE [facility] Comment on above: Performed By: #### B MP #### [facility] [address] [place] [address] Dr. Grace Abdul Ketones Ql (U) TRACE Abnormal NEGATIVE [facility] Comment on above: Performed By: #### B MP #### [facility] [address] [place] [address] Dr. Grace Abdul LEUKOCYTES TRACE Abnormal NEGATIVE [facility] Comment on above: Performed By: #### B MP #### [facility] [address] [place] [address] Dr. Grace Abdul Nitrite Ql (U) Negative Normal NEGATIVE [facility] Comment on above: Performed By: #### B MP #### [facility] [address] [place] [address] Dr. Grace Abdul pH (U) 8.0 [pH] Normal 5-9 [facility] Comment on above: Performed By: #### B MP #### [facility] [address] [place] [address] Dr. Grace Abdul SPEC GRAVITY 1.015 Normal 1.005-<=1.025 [facility] Comment on above: Performed By: #### B MP #### [facility] [address] [place] [address] Dr. Grace Abdul UA PROTEIN Negative Normal NEGATIVE/ TRACE [facility] Comment on above: Performed By: #### B MP #### [facility] [address] [place] [address] Dr. Grace Abdul UR MICRO IND INDICATED Normal [facility] Comment on above: Performed By: #### B MP #### [facility] [address] [place] [address] Dr. Grace Abdul Urobilinogen Qn (U) 0.2 {Ashley'U}/dL Normal 0.2 - 1. 0 [facility] Comment on above: Performed By: #### B MP #### [facility] [address] [place] [address] Dr. Grace Abdul PROF 14(COMP METB)on 022 Albumin [Mass/Vol] 3.8 g/dL Normal 3.4-5.0 [facility] Comment on above: Performed By: #### C VDTBH #### [facility] [address] [place] [address] Dr. Grace Abdul Albumin/Globulin [Mass ratio] 1.4 {ratio} Normal [facility] Comment on above: Performed By: #### C VDTBH #### [facility] [address] [place] [address] Dr. Grace Abdul ALP [Catalytic activity/Vol] 53 U/L Normal 46-116 [facility] Comment on above: Performed By: #### C VDTBH #### [facility] [address] [place] [address] Dr. Grace Abdul ALT [Catalytic activity/Vol] 20 U/L Normal 14-59 [facility] Comment on above: Performed By: #### C VDTBH #### [facility] [address] [address] [address] Grace Abdul Anion gap [Moles/Vol] 12.0 mmol/L Normal [facility] Comment on above: Performed By: #### C VDTBH #### [facility] [address] [address] [address] Grace Abdul AST [Catalytic activity/Vol] 18 U/L Normal 15-37 [facility] Comment on above: Performed By: #### C VDTBH #### [facility] [address] [address] [address] Grace Abdul Bilirubin [Mass/Vol] 0.4 mg/dL Normal 0.2-1.0 [facility] Comment on above: Performed By: #### C VDTBH #### [facility] [address] [address] [address] Grace Abdul Calcium [Mass/Vol] 9.5 mg/dL Normal 8.5-10.1 [facility] Comment on above: Performed By: #### C VDTBH #### [facility] [address] [address] [address] Grace Abdul Chloride [Moles/Vol] 99 mmol/L Normal 98-107 [facility] Comment on above: Performed By: #### C VDTBH #### [facility] [address] [address] [address] Grace Abdul CO2 [Moles/Vol] 28.1 mmol/L Normal 21.0-32.0 [facility] Comment on above: Performed By: #### C VDTBH #### [facility] [address] [address] [address] Grace Abdul Creatinine [Mass/Vol] 1.25 mg/dL Critically high 0.55-1.02 [facility] Comment on above: Performed By: #### C VDTBH #### [facility] [address] [address] [address] Grace Abdul EGFR-AF NIGERIAN 50 mL/min/1.73m2 Critically low >=60 [facility] Comment on above: Performed By: #### C VDTBH #### [facility] [address] [address] [address] Grace Abdul EGFR-NON AF NIGERIAN 41 mL/min/1.73m2 Critically low >=60 [facility] Comment on above: Performed By: #### C VDTBH #### [facility] [address] [address] [address] Grace Abdul Globulin (S) [Mass/Vol] 2.7 g/dL Normal [facility] Comment on above: Performed By: #### C VDTBH #### [facility] [address] [address] [address] Grace Abdul Glucose [Mass/Vol] 131 mg/dL Critically high 74-106 [facility] Comment on above: Performed By: #### C VDTBH #### [facility] [address] [address] [address] Grace Abdul Potassium [Moles/Vol] 4.1 mmol/L Normal 3.5-5.1 [facility] Comment on above: Performed By: #### C VDTBH #### [facility] [address] [place] [address] Dr. Grace Abdul Protein [Mass/Vol] 6.5 g/dL Normal 6.4-8.2 [facility] Comment on above: Performed By: #### C VDTBH #### [facility] [address] [place] [address] Dr. Grace Abdul Sodium [Moles/Vol] 135 mmol/L Critically low 136-145 [facility] Comment on above: Performed By: #### C VDTBH #### [facility] [address] [address] [address] Grace Abdul Urea nitrogen [Mass/Vol] 33.0 mg/dL Critically high 7.0-18.0 [facility] Comment on above: Performed By: #### C VDTBH #### [facility] [address] [place] [address] Dr. Grace Abdul Urea nitrogen/Creatinine [Mass ratio] 26.4 mg/mg Normal [facility] Comment on above: Performed By: #### C VDTBH #### [facility] [address] [place] [address] Dr. Grace Abdul URINE MICROSCOPIC ONLYon BACTERIA NONE SEEN Normal NONE SEEN [facility] Comment on above: Performed By: #### C BC #### [facility] [address] [place] [address] Dr. Grace Abdul Bacteria identified Cx Nom (U) NOT INDICATED Normal [facility] Comment on above: Performed By: #### C BC #### [facility] [address] [place] [address] Dr. Grace Abdul CAST NONE SEEN Normal NONE SEEN [facility] Comment on above: Performed By: #### C BC #### [facility] [address] [place] [address] Dr. Grace Abdul Crystals LM Nom (Urine sed) NONE SEEN Normal NONE SEEN [facility] Comment on above: Performed By: #### C BC #### [facility] [address] [place] [address] Dr. Grace Abdul Epithelial cells LM Ql (Urine sed) FEW Abnormal NONE SEEN /RARE [facility] Comment on above: Performed By: #### C BC #### [facility] [address] [place] [address] Dr. Grace Abdul MUCOUS NONE SEEN Normal NONE SEEN [facility] Comment on above: Performed By: #### C BC #### [facility] [address] [place] [address] Dr. Grace Abdul RBC 0-2 Normal 0-2 [facility] Comment on above: Performed By: #### C BC #### [facility] [address] [place] [address] Dr. Grace Abdul WBC 0-2 Abnormal NONE SEEN [facility] Comment on above: Performed By: #### C BC #### [facility] [address] [place] [address] Dr. Grace Abdul XR CHEST 1 Von [...] by: KRANTHI CONNORS Date: 2021-09-13 13:[address] [facility] CERV SP W/OBLS/FLEX/EXT 6 OR >on 12-12-2020 CERV SP W/OBLS/FLEX/EXT 6 OR > STUDY: CERV SP W/OBLS/FLEX/EXT 6 OR >; 12/12/2020 9:40 am INDICATION: NECK PAIN. COMPARISON: None. ACCESSION NUMBER(S): [id number] ORDERING CLINICIAN: Aiden Younger TECHNIQUE: AP, lateral, [...] 147.3 cm Armando Morales DO Work Phone: [facility] 12-06-2023 11:32-0400 Body mass index (BMI) [Ratio] 34.28 kg/m2 Armando Morales DO Work Phone: [facility] 12-06-2023 11:32-0400 Body weight 74.39 kg Armando Morales DO Work Phone: [facility] 12-06-2023 11:32-0400 Diastolic blood pressure 82 mm[Hg] Armando Morales DO Work Phone: [facility] 12-06-2023 11:32-0400 Systolic blood pressure 142 mm[Hg] Armando Morales DO Work Phone: [facility] 09-21-2022 12:51-0400 Diastolic blood pressure 60 mm[Hg] Carolyn Vanegas MD Work Phone: [facility] 09-21-2022 12:51-0400 Heart rate 67 /min Carolyn Vanegsa MD Work Phone: [facility] 09-21-2022 12:51-0400 Systolic blood pressure 153 mm[Hg] Carolyn Vanegas MD Work Phone: [facility] 05-14-2022 14:24-0400 Diastolic blood pressure 87 mm[Hg] Marty Dozier DO Work Phone: [facility] 05-14-2022 14:24-0400 Heart rate 72 /min Marty Dozier DO Work Phone: [facility] 05-14-2022 14:24-0400 Systolic blood pressure 158 mm[Hg] Marty Galavizis DO Work Phone: [facility] 05-14-2022 14:22-0400 Body height 152.4 cm Marty Galavizis DO Work Phone: [facility] 05-14-2022 14:22-0400 Body weight 76.39 kg Marty Galavizis DO Work Phone: [facility] 05-14-2022 14:22-0400 SaO2% (BldA) [Mass fraction] 99 % Marty Galavizis DO Work Phone: [facility] Encounters Encounter Date Encounter Type Care Provider Facility Start: 12-06-2023 End: 12-06-2023 Patient encounter procedure Armando Morales DO Work Phone: [facility] Comment on above: Encounter for gyneco logical examination without abnormal finding; Encounter for Papanicolaou smear of vagina; Breast cancer screening by mammogram Start: 12-06-2023 End: 12-06-2023 Patient encounter status Armando Aly Morales DO Work Phone: [facility] Start: 12-06-2023 End: 12-06-2023 ambulatory ARMANDO MORALES Not Available Start: 09-26-2023 End: 09-26-2023 ambulatory Lyn Quiñones MD Facility: [facility] Start: 09-12-2023 End: 09-12-2023 ambulatory Lyn Quiñones MD Facility:[facility] Start: 08-18-2023 End: 08-18-2023 ambulatory Galina Rogers Facility:[facility] Start: 08-08-2023 End: 08-08-2023 ambulatory COLETTE MATOS [...] Start: 09-21-2022 End: 09-21-2022 ambulatory GALINA ROGERS Facility:[facility] Start: 09-21-2022 End: 09-21-2022 Patient encounter [...] Start: 05-14-2022 End: 05-14-2022 ambulatory MARTY DOZIER Facility:[facility] Start: 05-14-2022 End: 05-14-2022 Patient encounter [...] procedure 12/10/2025 11:30 AM EDT Office Visit [facility] [address] [place] [id number] Armando Morales, DO [address] [place], [place] [id number] [facility] Start: 10-23-2023 Influenza vaccination Influenza Vacc ine (#1) [facility] Start: 10-22-2022 Influenza vaccination INFLUENZA (#1) [facility] Start: 04-11-2022 COVID-19 VACCINE (6 - Moderna series) COVID-19 VACCINE (6 - Moderna series) [facility] Start: 02-21-2022 ADVANCE DIRECTIVE DISCUSSION ADVANCE DIRECTIVE DISCUSSION [facility] Start: 02-21-2022 DEPRESSION ASSESSMENT DEPRESSION ASS ESSMENT [facility] Start: 11-12-2017 Pneumococcal Vaccine : 65+ Years (2 of 2 - PPSV23 or PCV20) Pneumococcal Vaccine: 65+ Years (2 of 2 - PPSV23 or PCV20) [facility] Start: 11-12-2017 PNEUMOCOCCAL: 65+ (2 - PPSV23 if available, else PCV20) PNEUMOCOCCAL: 65+ (2 - PPSV23 if available, else PCV20) [facility] Start: 11-12-2017 PNEUMOCOCCAL: 65+ (2 - PPSV23 or PCV20) PNEUMOCOCCAL: 65+ (2 - PPSV23 or PCV20) [facility] Start: 07-22-2017 SHINGRIX VACCINE (2 of 3) SHINGRIX VACCINE (2 of 3) [facility] Start: 04-30-2004 BONE DENSITY BONE DENSITY [facility] Start: 04-30-1984 DIABETES SCREEN DIABETES SCREEN [facility] Start: 04-30-1958 Urine microalbumin profile DTAP,TDAP,TD (1 - Tdap) [facility] IGP,rfxAptima HPV all,16/18,45 IGP,rfxAptima HPV all,16/18,45 Pathology and Cytology Routine Encounter for Papanicolaou smear of vagina Ordered: 12/06/2023 [facility] Work Phone: Comment on above: Ordered: 12/06/2023 Immunizations Immunization Date Immunization Notes Care Provider Armando schwartz 12-09-2021 Moderna Bivalent Gama ster Vaccination Armando Morales DO Work Phone: [facility] 12-02-2021 Influenza, injectabl e, [place] Canine Kidney, preservative free, quadrivalent Marty Dozier DO Work Phone: [facility] 12-02-2021 influenza virus vacc ine, unspecified formulation Armando Morales DO Work Phone: [facility] 11-28-2020 influenza virus vacc ine, unspecified formulation Marty Dozier DO Work Phone: [facility] 11-29-2019 Seasonal trivalent influenza vaccine, adjuvanted, preservative free Marty Dozier DO Work Phone: [facility] 05-27-2017 zoster vaccine, live Marty Dozier DO Work Phone: [facility] 11-12-2016 pneumococcal conjuga te vaccine, 13 valent Marty Dozier DO Work Phone: [facility] Payers Date Payer Category Payer Private Health Insurance [id number] 2004 Medicare [id number] 2004 Unknown 1959 Medicare [id number] 1959 Self-pay 1959 Unknown [id number] 1939 Unknown [id number] 2.16.84 0.1.888815.3.579.2.593 1939 Unknown [id number] 2.16.84 0.1.511114.3.579.2.593 1939 Unknown [id number] 2.16.84 0.1.419269.3.579.2.593 1939 Unknown [id number] 2.16.84 0.1.945317.3.579.2.593 1939 Unknown [id number] 2.16.84 0.1.655322.3.579.2.593 1939 Unknown [id number] 2.16.84 0.1.098636.3.579.2.593 1939 Unknown [id number] 2.16.84 0.1.756625.3.579.2.593 1939 Unknown [id number] 2.16.84 0.1.500748.3.579.2.593 1939 Unknown [id number] 2.16.84 0.1.043114.3.579.2.593 1939 Unknown [id number] 2.16.84 0.1.281315.3.579.2.593 1939 Unknown [id number] 2.16.84 0.1.067215.3.579.2.593 1939 Unknown [id number] 2.16.84 0.1.729471.3.579.2.593 1939 Unknown [id number] 2.16.84 0.1.255763.3.579.2.593 1939 Unknown [id number] 2.16.84 0.1.375598.3.579.2.593 1939 Unknown [id number] 2.16.84 0.1.930972.3.579.2.593 1939 Unknown [id number] 2.16.84 0.1.790259.3.579.2.593 1939 Unknown [id number] 2.16.84 0.1.477324.3.579.2.593 1939 Unknown [id number] 2.16.84 0.1.551781.3.579.2.593 1939 Unknown [id number] 2.16.84 0.1.756358.3.579.2.593 1939 Unknown [id number] 2.16.84 0.1.457938.3.579.2.593 1939 Unknown [id number] 2.16.84 0.1.888480.3.579.2.593 1939 Unknown [id number] 2.16.84 0.1.674510.3.579.2.593 1939 Unknown [id number] 2.16.84 0.1.552435.3.579.2.593 1939 Unknown [id number] 2.16.84 0.1.912845.3.579.2.593 1939 Unknown [id number] 2.16.84 0.1.990383.3.579.2.593 1939 Unknown [id number] 2.16. 840.1.730256.3.579.2.196 1939 Unknown [id number] 2.16. 840.1.740813.3.579.2.196 1939 Unknown [id number] 2.16. 840.1.156272.3.579.2.196 1939 Unknown [id number] 2.16. 840.1.023808.3.579.2.196 1939 Unknown [id number] 2.16. 840.1.756213.3.579.2.196 1939 Unknown [id number] 2.16. 840.1.131077.3.579.2.196 1939 Unknown [id number] 2.16. 840.1.376195.3.579.2.196 1939 Unknown [id number] 2.16. 840.1.800529.3.579.2.196 1939 Unknown [id number] 2.16.84 0.1.010279.3.579.2.1259 1939 Unknown [id number] 2.16.84 0.1.021071.3.579.2.1259 1939 Unknown [id number] 2.16.84 0.1.843858.3.579.2.1259 Social History Date Type Detail Facility Start: 05-14-2022 End: 08-02-2022 Tobacco smoking status NHIS Never smoked tobacco [facility] Start: 05-14-2022 End: 08-02-2022 Tobacco use and exposure Smokeless tobacco non-user [facility] Start: 05-14-2022 End: 12-06-2023 Alcohol intake Lifetime non-drinker (finding) [facility] Start: 1940 Sex Assigned At Not on file [facility] Start: 09-21-2022 End: 12-06-2023 History of Social function [place] [facility] Start: 09-21-2022 End: 12-06-2023 Tobacco use panel [facility] Adult Depression Scr eening Assessment 2 [facility] How often to you hav [...] Obstetrics and Gynecology Alexa Delgado 1940 12/06/23 [id number] Yearly Wellness Exam Chief Complaint Patient presents with Gynecologic Exam Medicare yearly. LMP: [facility] 1972 HRT: None Last pap 12-02-21 neg. Last mammogram 12-05-23 [facility] ordered by PCP. Denies breast [...] Oil) 1000 MG capsule as directed Orally Eubkzpdehri-Pcsniojhohg-UPX (Triple Flex) 500-400-125 MG tablet 1 tablet with meals Orally twice daily for 30 days HYDROcodone-acetaminophen (Jones) 5-325 MG tablet 1 tablet as needed [...] excision of lesion on leg ( benign) [place] CAPSULOTOMY POSTERIOR CAPSULAR RELEASE KNEE 05/15/2013 Yttrium aluminum garnet (YAG) capsulotomies [place] KNEE SCOPE,CLEAN/DRAIN 10/1998 Dr. De Leon [place] LAMNOTMY INCL W/DCMPRSN NRV ROOT 1 INTRSPC CERVC 12/20/2006 L4-5 Hemilaminectomy / Discectomy - Dr. Arshad SALPINGOOPHORECTOMY Left 1981 SKIN SURGERY 12/13/2008 excision neoplasm LT leg TONSILLECTOMY 1957 TOTAL ABDOMINAL HYSTERECTOMY 1973 SUNIL RSO TOTAL KNEE ARTHROPLASTY Right 09/22/2017 Dr. de leon Past Medical History: Diagnosis Date Angina pectoris ([facility]) Angina pectoris ([facility]) 11/2019 hx of hospitalization Melchor's palsy 1960 Breast nodule Cataract 2012 COVID-19 10/2021 hx of hospitalization History of medical problems 1982 MMK LSO HTN (hypertension) ([facility]) Hx of completed stroke hx of stroke at [id number]/ TIA 1985 Kidney disease remission Kidney disease hx of hospitalization Lumbar disc herniation 2006 L4 L5 Miscarriage x3 Pelvic fracture ([facility]) 2018 hx of hospitalization x4 Status post laser cataract surgery of left eye 2014 Stroke ([facility]) 1973 at childbirth TIA (transient ischemic [...] costovertebral angle tenderness, no obvious scoliosis/kyphosis. 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 documented in this encounter [facility] 09-21-2022 Note HNO ID: [id number] Author: Carolyn Vanegas MD Service: ? Author [...] Health Percentile 1 (more content not included)... [facility] 09-21-2022 Instructions Carolyn Vanegas MD - [...] at this time. documented in this encounter [facility] 09-21-2022 History of Present [...] 4 - Moderate documented in this encounter [facility] 08-26-2022 Note HNO ID: [id number] Author: Kassandra Alves PA-C Service: ? Author Type: Physician Project Management Engineer Type: Progress Notes Filed: 08/26/2022 11:52 AM Note Text: Per Triage: Alexa Delgado is a 82 year old female that requests evaluation of spine. Per review, they have symptoms of lower back pain. Numbness/tingling right leg. Difficulty walking. Weakness Request: 1st available Referring provider: Galina Rogers MD Patient out of state: no 2nd opinion: no Prior spine surgery: yes 2006 [facility] Address: [address] [place] [address] CMT: PT Injections Tylenol Hydrocodone Studies (Reports [...] reviewed during the appt Kassandra Alves PA-C [facility] 08-26-2022 History of Present illness Narrative Per Triage: Alexa Delgado is a 82 year old female that requests evaluation of spine. Per review, they have symptoms of lower back pain. Numbness/tingling right leg. Difficulty walking. Weakness Request: 1st available Referring provider: Galina Rogers MD Patient out of state: no 2nd opinion: no Prior spine surgery: yes 2006 [facility] Address: [address] [place] [address] CMT: PT Injections Tylenol Hydrocodone Studies (Reports [...] Health Provider or Pain Management Provider at [facility]? No If answer is YES please [...] facility where the MRI/CT/myelogram was completed: [facility] Address: [address] [place] [address] MRI/CT/myelogram viewable in Epic: No If not, please provide [phone] to fax in imaging reports for review. [...] physical therapy was completed PT Injection [facility] [facility] Address: [address] [place] [address] Have you tried any other kinds of [...] surgery was completed: 2006 [facility] Address: [address] [place] [address] Additional Comments documented in this encounter [facility] 08-19-2022 Note HNO ID: [id number] Author: Micheal Bowman Service: ? Author Type: ? Type: Progress Notes Filed: 08/26/2022 11:52 AM Note Text: Patient name: Alexa Delgado Are you being referred by a [facility] Provider or Pain Management Provider at [facility]? No If answer is YES please [...] facility where the MRI/CT/myelogram was completed: [facility] Address: [address] [place] [address] MRI/CT/myelogram viewable in Epic: No If not, please provide [phone] to fax in imaging reports for review. [...] physical therapy was completed PT Injection [facility] Address: [address] [place] [address] Have you tried any other kinds of [...] surgery was completed: 2006 [facility] Address: [address] [place] [address] Additional Comments [facility] 07-16-2022 Note PROCEDURE: XR HIP RT [...] MENDOZA Date: 2022-07-16 11:28 [facility] 05-14-2022 Note HNO ID: [id number] Author: Marty Dozier, DO Service: ? Author Type: Physician Type: Progress Notes Filed: 05/15/2022 10:02 PM Note Text: [facility] [place] [facility] Medical [...] Ratio: R>L low back Current Treatment: Medications Jones 5-325 mg BID - helps Diclofenac 75 [...] but still has pain -01/28/22 Noemi Sequeira CONSTRUCTION EQUIPMENT MECHANIC: BL Lumbar erector spinae TPI (0.125% [...] ongoing as of 04/17/21 -03/08/21 Noemi Sequeira CONSTRUCTION EQUIPMENT MECHANIC: Left rhomboid TPI (0.125% Marcaine, 40 mg Kenalog) -02/03/21 LESI - moderate relief for 4 days Prior spine surgery: -2006 L4-5 Discectomy Previously treated by: -[facility], previously Dr. [...] today. She has an evaluation at the [facility] tomorrow at the Spine Center. RECOMMENDATIONS: We will see the patient back in the office after she undergoes evaluation there to discuss her treatment plan thereafter. We will see the patient back in the office in approximately four weeks' time or sooner if needed. PMH: Lumbar scoliosis Depression on Negrita (more content not included)... [facility] 05-14-2022 History of Present illness Narrative Images from the original note were not included. [facility] [place] [facility] - Medical [...] Ratio: R>L low back Current Treatment: Medications Jones 5-325 mg BID - helps Diclofenac 75 [...] but still has pain -01/28/22 Noemi Sequeira CONSTRUCTION EQUIPMENT MECHANIC: BL Lumbar erector spinae TPI (0.125% [...] ongoing as of 04/17/21 -03/08/21 Noemi Sequeira CONSTRUCTION EQUIPMENT MECHANIC: Left rhomboid TPI (0.125% Marcaine, 40 mg Kenalog) -02/03/21 LESI - moderate relief for 4 days Prior spine surgery: -2006 L4-5 Discectomy Previously treated by: -[facility], previously Dr. [...] today. She has an evaluation at the [facility] tomorrow at the Spine [...] 04/04/22 CT abd/pelvis with IV contrast, [facility], report: Abdominal wall: Old healed left pelvis fractures. Degenerative changes and scoliosis of the lumbar spine. IMPRESSION: No acute abdominal pathology. No acute inflammatory process. No obstructing urinary tract stone. No evidence for bowel obstruction. 11/15/21 XR abd, [facility], report: No acute osseous abnormality. There is moderate dextrocurvature of the lumbar spine. 05/08/2021 XR right hip/pelvis, [facility], report: Rotatory dextro scoliosis of [...] TIME: 3:15 PM documented in this encounter [facility] 05-13-2022 Note CONSULTATION CONSULTATION [...] mg at h.s., diclofenac 75 mg b.i.d., Jones 5 mg b.i.d. EXAM: Notable for the [...] today. She has an evaluation at the [facility] tomorrow at the Spine Center. RECOMMENDATIONS: We will see the patient back in the office after she undergoes evaluation there to discuss her treatment plan thereafter. We will see the patient back in the office in approximately four weeks' time or sooner if needed. [facility] 04-06-2022 Note CONSULTATION CONSULTATION DATE: [...] to kidney dysfunction also. The patient takes Jones, however, is very controlled and limits it to the point of detriment. Education was done. The patient was instructed to take the Jones to a b.i.d. to t.i.d. basis. The [...] b.i.d. basis. The patient may increase the Jones to 5/325 t.i.d. We will schedule the [...] the procedure. CC: Galina Rogers M.D. [facility] 03-11-2022 Note CONSULTATION CONSULTATION DATE: [...] gave improvement for 24 hours. Medications include Jones 5/325 b.i.d., diclofenac 75 mg b.i.d., citalopram [...] back pain. PLAN: We will refill her Jones 5/325 b.i.d. We will prescribe her Buderer cream with gabapentin, ketorolac and prilocaine/lidocaine to be placed over her right knee. We will trial Requip 0.25 mg q.h.s. We will see the patient in the clinic in three months' time unless otherwise indicated. Patient agrees with the plan. [facility] 01-28-2022 Note CONSULTATION CONSULTATION DATE: [...] daily which decreases her pain. Medications include Jones 5/325 b.i.d., Flexeril 5 mg b.i.d., diclofenac [...] does consent to. We will refill the Jones 5/325 b.i.d. We will pre-authorize for a right genicular nerve block under fluoroscopy. Patient will follow up in the clinic thereafter. [facility] 01-28-2022 Note CONSULTATION PROCEDURE DATE: [...] be followed up in the office. [facility] 12-31-2021 Note CONSULTATION CONSULTATION DATE: [...] Current medications include diclofenac 75 mg b.i.d., Jones 5/325 b.i.d., citalopram, Flexeril and multivitamin regimen. The patient does state that she breaks her Jones in half and the most she takes [...] and would like to move forward. [facility] 09-30-2021 Note CONSULTATION CONSULTATION DATE: 09/30/2021 This is a very bjmvtuae77-ejvw-ryh female accompanied by her returning to the [...] Current medications include diclofenac 50 mg b.i.d., Jones 5/325 b. i.d. and Tylenol. She does [...] at 25 mg q.h.s. Refill for her Jones 5/325 b.i.d. will be sent as well. The patient is to continue with her vitamin regimen which she is currently compliant with, as well as heat application and pool exercises. The patient will be followed up in the office in three months' time unless otherwise indicated. The patient agrees with the plan of care. [facility] Evaluation note Diagnosis Chronic bilateral low back pain with right-sided sciatica- Primary Back pain, lumbosacral Lumbago Chronic sacroiliac joint pain Disorders of sacrum Lumbar spondylosis Lumbosacral spondylosis without myelopathy Scoliosis of lumbar spine, unspecified scoliosis type documented in this [facility] Spinal stenosis, lumbar region with neurogenic claudication- Primary Spondylolisthesis, lumbar region Other idiopathic scoliosis, lumbar region documented [facility] Diagnosis Obesity, Class [...] By Contac t Referred To Contact [facility] [place] Diagnoses Spinal stenosis, lumbar region with neurogenic claudication Procedures CONSULT TO [facility]) OFFICE/OUTPATIENT [facility] 60-74 MINUTES Carolyn Vanegas MD [address] [place] [address] Referral ID Status Reason Start Date Expiration Date Visits Requested Visits Authorized [id number] Pending Review PCP Requested Referral 09/21/2022 09/21/2023 1 1 Additional Source Comments INFORMATION SOURCE (unrecogn ized section and content) DATE CREATED AUTHOR 09/13/2017 [facility] DATE CREATED AUTHOR AUTHOR'S ORGANIZ ATION 12/13/2020 [facility] DATE CREATED AUTHOR AUTHOR'S ORGANIZ ATION 07/30/2022 [facility] DATE CREATED AUTHOR AUTHOR'S ORGANIZ ATION 09/22/2022 [facility] DATE CREATED AUTHOR AUTHOR'S ORGANIZ ATION 10/10/2023 [facility] DATE CREATED AUTHOR AUTHOR'S ORGANIZ ATION 10/26/2023 [facility] DATE CREATED AUTHOR AUTHOR'S ORGANIZ ATION 12/08/2023 [facility] EPIC Source Comments (unrecognize d section and content) In the event this informatio n is protected by the Federal Confidentiality of Alcohol and Drug Abuse Patient Records regulations: The Federal rules restrict any use of the information to criminally investigate or prosecute any alcohol or drug abuse patient.[facility] the event this information is protected by the Federal Confidentiality of Alcohol and Drug Abuse Patient Records regulations: The Federal rules restrict any use of the information to criminally investigate or prosecute any alcohol or drug abuse patient.[facility] the event this information is protected by the Federal Confidentiality of Alcohol and Drug Abuse Patient Records regulations: The Federal rules restrict any use of the information to criminally investigate or prosecute any alcohol or drug abuse patient.[facility] Reason for Visit (unrecogniz ed section and content) Reason Comments New Patient Evaluation Low Back Pain Reason Comments New Patient Reason Comments Gynecologic Exam Medicare yearly.LMP: SUNIL BSO 1972HRT: NoneLast pap 12-02-21 neg.Last mammogram 12-05-23 [facility] ordered by PCP.Denies breast or urinary concerns. bowel concern Some rectal bleeding with bowel movements. Denies difficulty having a bowel movement. Care Teams (unrecognized sec tion and content) Laminate Floor Installer Relationship Specialty Start Date End Date Galina Rogers MD [address] [place] [phone] PCP - General Family Medicine 05/14/22 Colette De Leon Jr., DO [address] [address] Referring Orthopedics 05/03/22 Lakshmipathy, Narendranath [address] [address] Pain Management 05/14/22 Colette De Leon Jr., DO [address] [place] [address] Orthopedics 05/14/22 Laminate Floor Installer Relationship Specialty Start Date End Date Galina Rogers MD [address] [place] [address] PCP - General Family Medicine 05/14/22 Colette De Leon Jr., DO [address] [place] [address] Referring Orthopedics 05/03/22 Lakshmipathy, Narendranath [address] [phone] Pain Management 05/14/22 Colette De Leon Jr., DO [address] [place] [address] Orthopedics 05/14/22 Galina Rogers MD [address] [facility] [place] [address] Referring Family Medicine 08/11/22 Laminate Floor Installer Relationship Specialty Start Date End Date Galina Rogers MD [address] [place] [address] PCP - General Family Medicine 05/14/22 Colette De Leon Jr., DO [address] [place] [address] Referring Orthopedics 05/03/22 SylviegildardoPorsha mancia [address] [phone] Pain Management 05/14/22 Colette De Leon Jr., [address] [facility] [address] [place] [address] Orthopedics 05/14/22 Galina Rogers MD [address] [place] [phone] Referring Family Medicine 08/11/22 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 [facility] [employer] [facility]. provides no warranty or guarantee of the accuracy or completeness of information in this document.
--- NOTE | 2024-01-05 15:28 | P.CN_ITS ---
Consult Note: HPI Data of Consult Patient: known to practice within the last 3 years Requesting Physician: Vivian Meza NP Primary Care Provider: uLis Rogers MD Consult Narrative Reason for consult: f/u Narrative: Alexa Delgado a pleasant 82 year old female presents for evaluation and management of chronic pain. Patient rating pain 2/10 today, increasing to 8/10 in back and left leg with standing walking and activity. pain improved with lying down, heat, and medications. Patient has found significant improvement in pain and functional ability with past procedures and current medication regimen. Denies side effects from current medication regimen. Previous left L4-5 L5-S1 TFESI and left SIJ injection provided >50% improvement for 3 months but has since worn off. following with PCP for dementia, noticing increased memory loss. cc:: CC: Vivian Meza NP Review of Systems ROS Status of ROS 10 or more systems reviewed and unremark able except as noted in history and below Musculoskeletal Reports: back pain, extremity pain and joint pain PFSH PFSH Medical History Pelvic fracture ?S32.9XXA - Fracture of unspecified parts of lumbosacral spine and pelvis, initial encounter for closed fracture (ICD-10) TIA (transient ischemic attack) ?G45.9 - Transient cerebral ischemic attack, unspecified (ICD-10) Closed fracture of coccyx ?S32.2XXA - Fracture of coccyx, initial encounter for closed fracture (ICD- 10) Osteoarthritis ?M19.90 - Unspecified osteoarthritis, unspecified site (ICD-10) H/O pyelonephritis ?Z87.448 - Personal history of other diseases of urinary system (ICD-10) Syncope ?R55 - Syncope and collapse (ICD-10) Generalized weakness ?R53.1 - Weakness (ICD-10) Dizziness ?R42 - Dizziness and giddiness (ICD-10) Surgical History Pain management ?R52 - Pain, unspecified (ICD-10) H/O bladder repair surgery ?Z98.890 - Other specified postprocedural states (ICD-10) H/O breast surgery ?Z98.890 - Other specified postprocedural states (ICD-10) H/O knee surgery ?Z98.890 - Other specified postprocedural states (ICD-10) H/O foot surgery ?Z98.890 - Other specified postprocedural states (ICD-10) History of right knee joint replacement ?Z96.651 - Presence of right artificial knee joint (ICD-10) History of YAG laser capsulotomy of lens ?Z98.49 - Cataract extraction status, unspecified eye (ICD-10) Hx laparoscopic cholecystectomy ?Z90.49 - Acquired absence of other specified parts of digestive tract (ICD- 10) H/O: hysterectomy ?Z90.710 - Acquired absence of both cervix and uterus (ICD-10) History of arthroscopic knee surgery ?Z98.890 - Other specified postprocedural states (ICD-10) H/O discectomy ?Z98.890 - Other specified postprocedural states (ICD-10) H/O dilation and curettage ?Z98.890 - Other specified postprocedural states (ICD-10) History of appendectomy ?Z90.49 - Acquired absence of other specified parts of digestive tract (ICD- 10) Hx of tonsillectomy ?Z90.89 - Acquired absence of other organs (ICD-10) Family History Other Family history of CHF (congestive heart failure) Social History Within the past year, how often did you have a drink containing alcohol: never Score interpretation: A score less than 3 is consistent with normal alcohol consumption. Smoking status: Never smoker Non-prescribed substance use: denies use Previous occupational history: Retired, , lives at home Highest level of school completed/degree received: high school graduate Are you now , , , , never or living with a partner: In a typical week, how many times do you talk on the telephone with family, friends, or neighbors: once per week How often do you get together with friends or relatives: once per week How often do you attend moravian or confucianism services: 1-3 times per year Little interest or pleasure in doing things: not at all Feeling down, depressed, or hopeless: not at all Feel stressed/tense/nervous/anxious/difficulty sleeping: not at all Gender Identity: female Meds Home Medications and Allergies Home Medications ?Medication ?Instructions ?Recorded ?Confirmed ?Type B complex with vitamin 1 cap PO DAILY 07/26/22 11/04/23 History Q-qcqavvczp-ohbw capsule aspirin 81 mg tablet,delayed 81 mg PO DAILY 07/26/22 11/04/23 History release calcium 600 mg (as carbonate)-vit 1 tab PO DAILY 07/26/22 11/04/23 History D3 10 mcg (400 unit)-minerals tablet capsaicin 0.025 % topical patch 1 patch topical DAILY pain 07/26/22 11/04/23 History (Salonpas-Hot) citalopram 10 mg tablet 10 mg PO DAILY 07/26/22 11/04/23 History fexofenadine 180 mg tablet 180 mg PO DAILY 07/26/22 11/04/23 History (Benita Allergy) flaxseed oil 1,000 mg capsule 1,000 mg PO DAILY 07/26/22 11/04/23 History glucosamine 750 ix-txjtdt-mxk 2-C 1 tab PO DAILY 07/26/22 11/04/23 History 30 mg-D3 1,000 unit-maida 1 mg tablet (Kcwlevklfep-Kohqszkvsap-BHY + vitD) isosorbide mononitrate 30 mg 30 mg PO DAILY 07/26/22 11/04/23 History tablet,extended release 24 hr liothyronine 25 mcg tablet 25 mcg PO DAILY 07/26/22 11/04/23 History (Cytomel) melatonin 3 mg capsule 3 mg PO DAILY 07/26/22 11/04/23 History metoprolol succinate 50 mg 50 mg PO BID 07/26/22 11/04/23 History tablet,extended release 24 hr multivitamin 1 tab PO DAILY 07/26/22 11/04/23 History nitroglycerin 0.4 mg sublingual 0.4 mg sublingual Q5M PRN chest 07/26/22 11/04/23 History tablet pain cyclobenzaprine 10 mg tablet 10 mg PO BEDTIME 04/20/23 11/04/23 History ferrous sulfate 325 mg (65 mg 325 mg PO BID 09/02/23 11/04/23 History iron) tablet hydrocodone 5 mg-acetaminophen 325 1 tab PO TID PRN pain #90 tabs 10/06/23 11/04/23 Rx mg tablet cyclobenzaprine 5 mg tablet 5 mg PO QAM 10/13/23 11/04/23 History diclofenac sodium 75 mg 75 mg PO BID 10/13/23 11/04/23 History tablet,delayed release levothyroxine 75 mcg tablet 75 mcg PO QAM 10/13/23 11/04/23 History pantoprazole 40 mg tablet,delayed 40 mg PO DAILY #30 tabs 10/13/23 11/04/23 Rx release (Protonix) calcium 600 mg (as carbonate)-vit 1 tab PO BID 11/04/23 11/04/23 History D3 20 mcg (800 unit) chewable tablet (Caltrate plus D) hydrocodone 5 mg-acetaminophen 325 1 tab PO TID PRN pain #90 tabs 11/28/23 Rx mg tablet gabapentin 100 mg capsule 100 mg PO BID #60 caps 01/05/24 Rx hydrocodone 5 mg-acetaminophen 325 1 tab PO TID PRN pain #90 tabs 01/05/24 Rx mg tablet Allergies Allergy/AdvReac Type Severity Reaction Status Date / Time Penicillins Allergy Severe Hives Verified 11/04/23 10:21 codeine AdvReac Intermediate Dizziness Verified 11/04/23 10:21 fluconazole (From Diflucan) AdvReac Intermediate Hives Verified 11/04/23 10:21 quinine (From Quinamm) AdvReac Mild Headache Verified 11/04/23 10:21 pregabalin (From Lyrica) AdvReac Dizziness Verified 11/04/23 10:21 propoxyphene (From Darvon) AdvReac Headache Verified 11/04/23 10:21 decongest multi-action AdvReac Mild Headache Uncoded 11/04/23 10:21 Exam Constitutional Documenting provider has reviewed patient's vital signs: yes Common normals: no apparent distress, oriented x3, healthy appearing, alert and well nourished General appearance: cooperative [facility] Common normals: normocephalic, hearing grossly normal bilaterally and moist oral mucous membranes Head and scalp: normocephalic Eye Common normals: PERRL Pupil: PERRL Neck & C-Spine Common normals: full ROM General: normal visual inspection Chest Common normals: inspection of chest normal Respiratory Common normals: normal respiratory effort, no retractions and no use of accessory muscles Back & Pelvis Lumbar spine/lower back: ROM limited, pain with ROM, paraspinal muscle tenderness, paraspinal muscle spasm and straight leg raise positive left Sacroiliac joints: SI joint(s) abnormal Other: bilateral sij positive marge(patricks), gaenslens, thigh thrust, compression test strength 3.5/5 in LLE, 4/5 in RLE decreased sensation to left L4,5,S1 dermatomal pattern Extremity Common normals: normal to inspection Right lower extremity: hip joint Left lower extremity: knee joint Left knee: palpation (moderate to severe pain ), ROM (limited, crepitus noted. pain with medial/lateral stress testing) and other Other: no pain with internal and external rotation of right hip Neuro Common normals: oriented x3, CN's II-XII intact bilaterally, moves all extremiti es, no focal motor deficits, no sensory deficits noted and deep tendon reflexes 2+ bilaterally Sensorium/orientation: alert Gait (neuro): antalgic and assistive device used walker Motor exam: no movement abnormalities noted and strength abnormal Psych Common normals: mental status grossly normal, thought process normal, cooperative, affect normal, speech normal and activity/motor behavior normal Speech: normal speech Thought process: normal thought process Assessment and Plan Assessment and Plan (1) Lumbar stenosis with neurogenic claudication: (2) Sacroiliitis: (3) Chronic, continuous use of opioids: Assessment and Plan: I feel these medications are improving the patient's quality of life and allow them to tolerate activities of daily living as well as participate in recreational activity.? The patient does not report intolerable side effects. The patient is NOT opioid naive and non-pharmacologic and non-opioid treatment has failed to significantly relieve the patient's pain and improve functionality. The patient has a diagnosis that is related to a somatic or visceral pain etiology. ? ?? I reviewed with the patient the potential risks and side effects with the use of? opioid medications including but not limited to respiratory depression,? sedation, and even . I verified the patient has access to naloxone should? these effects occur. I advised the patient to avoid the use of any other? sedation substances including alcohol, THC, and benzodiazepines while? taking opioid medications due to the risk of compounding side effects and? detrimental outcomes. I reviewed the [employer], pain treatment agreement, urine? drug screen, and opioid start talking forms. The patient was advised to let? their family know they had Naloxone in case they would need to administer? the medication.? ?? A drug screen was completed within the last year, and no aberrancies were noted regarding their use of controlled substances. The patient understands they are subject to the terms and conditions of the pain contract that they have signed. ? ?? I have checked an [place]AR[place] report on this patient today and there are no aberrancies noted in the prescribing history.? (4) Lumbar degenerative disc disease: (5) Left knee pain: (6) Myalgia, other site: Plan Left L4-5 L5-S1 TFESI under fluoroscopy for lumbar radiculopathy/lumbar stenosis with NC start gabapentin 100mg BID risks vs benefits reviewed continue current medications tolerating well without side effects f/u 1-2 weeks after injection, consider bilateral SIJ injection
== END 2024-01-05 14:00 | disposition home or self-care (01) ==
PROVIDERS: PCP Family Medicine; Visit Provider Nurse Practitioner
DX: M48.062 Spinal stenosis, lumbar region with neurogenic claudication (principal); M46.1 Sacroiliitis, not elsewhere classified; Z79.891 Long term (current) use of opiate analgesic; M51.369 Other intervertebral disc degeneration, lumbar region without mention of lumbar back pain or lower extremity pain; M25.562 Pain in left knee; M79.18 Myalgia, other site
CPT/HCPCS: G0463

== ENCOUNTER 2024-01-16 09:34 | Day surgery (SDC) | payer MEDICARE, SELFPAY ==
--- OUTSIDE RECORDS SUMMARY | 2024-01-16 09:52 | XMS_ITS | CCD ---
Author Organization [facility] [employer] Care Team Providers Care Graduate Student Instructor Name Role Phone PHYSICIAN, DEFAULT Unavailable Unavailable [...] ., DR MOJICA Primary Care Unavailable NOEMI AHWK Consulting Unavailable BECKWITH ., DR NIKO Austin [...] Unavailable HOAshlie ., DR MOJICA Consulting Unavailable FOXHOME, DR HERMES Jean Baptiste Consulting Unavailable LATANYA [...] Unavailable Galina Rogers MD Primary Care Provider [phone] Allergies Allergy Classification Reported Allergen(s) Allergy Type Date of Onset Reaction(s) Facility (5 sources) Codeine; Translations: [CODEINE] Drug Allergy 09-14-19 13 Unknown [facility] (4 sources) Penicillins; Translations: [PENICILLINS] Drug Allergy 09-14-19 13 Unknown [facility] (4 sources) pregabalin; Translations: [PREGABALIN] Drug Allergy 05-15-19 23 Intolerance [facility] Work Phone: (5 sources) Propoxyphene; Translations: [PROPOXYPHENE] Drug Allergy 05-15-19 23 Rash, Unknown, GI intolerance, Headache [facility] (4 sources) quiNINE; Translations: [QUINAMM] Drug Allergy 05-15-19 23 GI Upset [facility] (5 sources) Decongest Multi-Action; Translations: [Decongest Multi-Action] Drug Allergy 05-15-19 23 Other: See Comments [facility] (1 source) Acetaminophen / HYDROcodone Drug Allergy [facility] Rep[facility] (2 sources) Codeine Drug Allergy 09-14-19 13 [facility] (1 source) Fluconazole Drug Allergy [facility] (2 sources) Penicillins Drug allergy (disorder) 09-14-19 13 [facility] (1 source) pregabalin Drug Allergy [facility] (2 sources) Propoxyphene Drug Allergy [facility] (1 source) quiNINE Drug Allergy [facility] (1 source) Fluconazole Allergy to substance [...] mouth twice daily as needed HYDROcodone-acetamin ophen ([place]) 5-325 MG tablet 1 tablet as needed [...] Take by mouth twice a day. Active Qyexrqf-Pqquenh-Kczjl l Edwar (SALONPAS TD) (1 source) Camphor-Menthol- [...] directed Sublingual Active take 1 tablet by jaun th three times daily as needed NITROGLYCERIN [...] above: Take by mouth twice daily. 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 OF ASPIRIN] Onset: 04-06-2022 Episodic Other aftercare (1 source) Other correction (current) drug therapy; Translations: [OTH RESIDENTIAL CURRENT DRUG THERAPY] Onset: 04-06-2022 Episodic Other [...] Test Name Value Interpretation Reference Range Facility [facility] 08-18-2023 L Specimen: [id number] Received: 08/22/23 Status: CECILIA Req Num: [id number] Spec Type: Impression Subm Dr: Galina Rogers MD Tissues: PATHPER Procedures: PATHREVIEW Age/ Patient Sex Location Account Attending Physician Alexa Delgado 83/F LABELL [id number] Galina Rogers MD SPEC NUM: [id number] RECD: 08/22/23 [facility] NUM: [id number] JANET: 08/18/[address]: Galina Rogers MD ENTERED: 08/22/[address] [facility]: Annie Rivas SPEC TYPE: Impression DEPT: SHELLIE Simmons ENTERED BY: [id number] RECV BY: [id number] ORDERED: PATHREVIEW ORDERED: PATHREVIEW Pathologist Review Abnormal [...] initial report for the needed correction CPT: 13140 ---- ---- Specimen: [id number] Received: 08/22/23 Status: CECILIA Biggsjose Num: [id number] Spec Type: Impression Subm Dr: Galina Rogers MD Tissues: PATHPER Procedures: PATHREVIEW ---- Patient: Alexa Delgado [id number] (Continued) ---- Signed (signature on file) Anoop Abdul MD 08/24/23918 Normal [facility] CNOVon 09-21-2022 CNOV Office Visit (NSADHC ) ALEXA DELGADO ([id number]) 1940 F Date Time Provider Department 09/21/22 [...] Percentile 2 (more content not included)... Normal [facility] XR LSPINE 2_3 VIEWSon 2022 XR [...] by: HERMES MENDOZA Date: 2022-07-16 11:34 Normal [facility] CNOVon 05-14-2022 CNOV Office Visit (SPMESH ) ALEXA DELGADO ([id number]) 1940 F Date Time Provider Department 05/14/22 2:30 PM [facility] During your visit today, we recorded the following information about you: Pulse Blood pressure Weight Height 72/minute 158/87 76.4 kg 1.524 m Marty Dozier DO 05/15/2022 10:02 PM Signed [facility] Spine Initial [...] Ratio: R>L low back Current Treatment: Medications [place] 5-325 mg BID - helps Diclofenac 75 [...] but still has pain -01/28/22 Noemi Sequeira MARIONETTE PERFORMER: BL Lumbar erector spinae TPI (0.125% Marcaine, [...] ongoing as of 04/17/21 -03/08/21 Noemi Sequeira MARIONETTE PERFORMER: Left rhomboid TPI (0.125% Marcaine, 40 mg [...] today. She has an evaluation at the [facility] tomorrow at the [facility]. RECOMMENDATIONS: We will see the pat (more content not included)... Normal [facility] CULTURE URINEon 04-05-2022 CULTURE URINE Culture Observations : LIGHT GROWTH OF MIXED GENITAL ALANIS. NO POTENTIAL PATHOGENS SEEN. Normal [facility] Comment on above: Performed By: #### U RCX ####[facility] [address] [place] [address]Dr. Grace Abdul UA RANDOM W/MICROSCOPICon BACTERIA NONE SEEN Normal NONE SEEN [facility] Comment on above: Performed By: #### U AMIC ####[facility] Isgnqzkrnj[address] [place] [address]Dr. Grace Abdul Bilirubin Ql (U) Negative Normal NEGATIVE [facility] Comment on above: Performed By: #### U AMIC ####[facility] [address]se[address] [place], [place] [address]Dr. Grace Abdul CAST NONE SEEN Normal NONE SEEN [facility] Comment on above: Performed By: #### U AMIC ####[facility] Sqawwjx[address]op[address] [place] [address]Dr. Grace Abdlu Clarity (U) CLEAR Normal CLEAR [facility] Comment on above: Performed By: #### U AMIC ####[facility] Isdqybcmcr[address] [place] [address]Dr. Grace Abdul Color (U) YELLOW Normal YELLOW [facility] Comment on above: Performed By: #### U AMIC ####[facility] Lbxlmsuoos[address] [place] [address]Dr. Grace Abdul Crystals LM Nom (Urine sed) NONE SEEN Normal NONE SEEN [facility] Comment on above: Performed By: #### U AMIC ####[facility] [address]th[address]bpw[address] [place] [address]Dr. Grace Abdul Epithelial cells LM Ql (Urine sed) RARE Normal NONE SEEN /RARE [facility] Comment on above: Performed By: #### U AMIC ####[facility] Qvicqteclz[address] [place] [address]Dr. Grace Abdul Glucose Ql (U) Negative Normal NEGATIVE [facility] Comment on above: Performed By: #### U AMIC ####[facility] Ydoqtoizgv[address] [place] [address]Dr. Grace Abdul Hemoglobin Ql (U) MODERATE Abnormal NEGATIVE [facility] Comment on above: Performed By: #### U AMIC ####[facility] Pwoz[address]eoz[address] [place], [place] [address]Dr. Grace Abdul Ketones Ql (U) TRACE Abnormal NEGATIVE [facility] Comment on above: Performed By: #### U AMIC ####[facility] Xlwpokmfra[address] [place], [place] [address]Dr. Grace Abdul LEUKOCYTES TRACE Abnormal NEGATIVE [facility] Comment on above: Performed By: #### U AMIC ####[facility] Qmeshrilcp[address] [place], [place] [address]Dr. Grace Abdul MUCOUS NONE SEEN Normal NONE SEEN [facility] Comment on above: Performed By: #### U AMIC ####[facility] Nlxmdejrun[address] [place], [place] [address]Dr. Grace Abdul Nitrite Ql (U) Negative Normal NEGATIVE [facility] Comment on above: Performed By: #### U AMIC ####[facility] Itpeqdjmfi[address] [place], [place] [address]Dr. Grace Abdul pH (U) 5.0 [pH] Normal 5-9 [facility] Comment on above: Performed By: #### U AMIC ####[facility] Ccowcphjqu[address] [place], [place] [address]Dr. Grace Abdul RBC 0-2 Normal 0-2 [facility] Comment on above: Performed By: #### U AMIC ####[facility] Nuxbulkudo[address] [place], [place] [address]Dr. Grace Abdul SPEC GRAVITY 1.015 Normal 1.005-<=1.025 The [facility] Comment on above: Performed By: #### U AMIC ####[facility] Evpzyjrruc[address] [place] [address]Dr. Grace Abdul UA PROTEIN Negative Normal NEGATIVE/ TRACE [facility] Comment on above: Performed By: #### U AMIC ####[facility] Iokhprmuyn[address] [place] [address]Dr. Grace Abdul Urobilinogen Qn (U) 0.2 {Ashley'U}/dL Normal 0.2 - 1. 0 [facility] Comment on above: Performed By: #### U AMIC ####[facility] Trthphtoaj[address] [place], [place] [address]Dr. Grace Abdul WBC 0-2 Abnormal NONE SEEN [facility] Comment on above: Performed By: #### U AMIC ####[facility] Wvcwgbwloj[address] [place], [place] [address]Dr. Grace Abdul CBC AUTO DIFFon 04-04-2022 BASO # 0.0 103/ul Normal 0.0-0.1 [facility] Comment on above: Performed By: #### C BC ####[facility] Wtjjzqijal[address] [place], [place] [address]Dr. Grace Abdul Basophils/100 WBC (Bld) 0.4 % Normal 0.2-2.0 [facility] Comment on above: Performed By: #### C BC ####[facility] Ahphkgkcgz[address] [place], [place] [address]Dr. Grace Abdul EO # 0.1 103/ul Normal 0.0-0.7 [facility] Comment on above: Performed By: #### C BC ####[facility] Tnhtpwejcr[address] [place], [place] [address]Dr. Grace Abdul Eosinophils/100 WBC (Bld) 1.3 % Normal 0.9-7.0 [facility] Comment on above: Performed By: #### C BC ####[facility] Hftizxzhon[address] [place], [place] [address]Dr. Grace Abdul Erythrocyte distribution width (RBC) [Ratio] 13.7 % Normal 11.0-15.0 [facility] Comment on above: Performed By: #### C BC ####[facility] G[address]ixbnmuh[address] [place] [address]Dr. Grace Abdul Hematocrit (Bld) [Volume fraction] 37.2 % Normal 36.0-48.0 [facility] Comment on above: Performed By: #### C BC ####[facility] Lvmwtpwlce[address] [place] [address]Dr. Benitalee ann Abdul Hemoglobin (Bld) [Mass/Vol] 12.4 g/dL Normal 12.0-16.0 [facility] Comment on above: Performed By: #### C BC ####[facility] Bcwadezsrg[address] [place], [place] [address]Dr. Grace Abdul IG # 0.02 10e3/ul Normal 0.00-0.03 [facility] Comment on above: Performed By: #### C BC ####[facility] Sxvbxmwhbc[address] [place], [place] [address]Dr. Grace Abdul IG % 0.4 % Normal 0.0-0.5 [facility] Comment on above: Performed By: #### C BC ####[facility] Swsffhckck[address] [place], [place] [address]Dr. Grace Abdul LYMPH # 0.8 103/ul Critically low 1.2-3.8 [facility] Comment on above: Performed By: #### C BC ####[facility] Mfhtbnydqu[address] [place], [place] [address]Dr. Grace Abdul Lymphocytes/100 WBC (Bld) 13.9 % Critically low 20.5-60.0 [facility] Comment on above: Performed By: #### C BC ####[facility] Mdyonhvhjh[address] [place], [place] [address]Dr. Grace Abdul MANUAL DIFF REQ NO Normal [facility] Comment on above: Performed By: #### C BC ####[facility] Ozagpyxfyg[address] [place], [place] [address]Dr. Grace Abdul MCH (RBC) [Entitic mass] 30.5 pg Normal 26.7-34.0 [facility] Comment on above: Performed By: #### C BC ####[facility] [address] [place] [id number]. Grace Abdul MCHC (RBC) [Mass/Vol] 33.3 g/dL Normal 29.9-35.2 [facility] Comment on above: Performed By: #### C BC ####[facility] [address]zh[address]nlxvbp[address] [place] [id number]. Benitalee ann Abdul MCV (RBC) [Entitic vol] 91.4 fL Normal 81.0-99.0 [facility] Comment on above: Performed By: #### C BC ####[facility] Xynylzyybd[address] [place], [place] [address]Dr. Benitalee ann Franko MONO # 0.7 103/ul Normal 0.3-0.8 [facility] Comment on above: Performed By: #### C BC ####[facility] Nkwufptleu[address] [place], [place] [address]Dr. Grace Abdul Monocytes/100 WBC (Bld) 13.5 % Critically high 1.7-12.0 [facility] Comment on above: Performed By: #### C BC ####[facility] Fcvfuymmfl[address] [place], [place] [address]Dr. Grace Abdul NEUT # 3.8 103/ul Normal 1.4-6.5 [facility] Comment on above: Performed By: #### C BC ####[facility] Drmbkamymq[address] [place], [place] [address]Dr. Grace Abdul Neutrophils/100 WBC (Bld) 70.5 % Normal 43.0-75.0 [facility] Comment on above: Performed By: #### C BC ####[facility] Cramqmvxyz[address] [place], [place] [address]Dr. Grace Abdul Platelet mean volume (Bld) [Entitic vol] 9.0 fL Critically low 9.5-13.5 [facility] Comment on above: Performed By: #### C BC ####[facility] Spexbmlidz[address] [place], [place] [address]Dr. Grace Abdul PLT 283 103/ul Normal 150-450 [facility] Comment on above: Performed By: #### C BC ####[facility] Qngqtuannc1903 [place], [place] [address]HkLisette Abdul RBC 4.07 106/ul Critically low 4.20-5.40 [facility] Comment on above: Performed By: #### C BC ####[facility] Izxngirgov1033 [place], [place] [address]YeLisette Abdul WBC 5.4 103/ul Normal 4.0-11.0 [facility] Comment on above: Performed By: #### C BC ####[facility] Kxyinwcmrv[address]64 [place], [place] [address]Om. Grace Abdul CT ABD/PELV W CONon 04-04-19 [...] Bilirubin Ql (U) Negative Normal NEGATIVE [facility] Comment on above: Performed By: #### Anthony ELLISON UMICRO ####[facility] Clrgpmetys[address] [place] [address]Dr. Grace Abdul Clarity (U) CLEAR Normal CLEAR [facility] Comment on above: Performed By: #### Anthony ELLISON UMICRO ####[facility] Aq[address]jdblza[address] [place] [address]Dr. Grace Abdul Color (U) LT. YELLOW Normal YELLOW [facility] Comment on above: Performed By: #### GINA FELDERRO ####[facility] [address]ss[address]qa[address] [place] [address]Dr. Grace Abdul ERUAHD A micrscopic examination will be performed if indicated. Normal [facility] Comment on above: Performed By: #### Anthony ELLISON UMICRO ####[facility] Yebqfswwor[address] [place] [address]Dr. Grace Abdul Glucose Ql (U) Negative Normal NEGATIVE [facility] Comment on above: Performed By: #### Anthony ELLISON UMICRO ####[facility] Jhgvwvpkgh[address] [place] [address]Dr. Grace Abdul Hemoglobin Ql (U) SMALL Abnormal NEGATIVE [facility] Comment on above: Performed By: #### Anthony ELLISON UMICRO ####[facility] Ifksskjmoj[address] [place] [address]Dr. Grace Abdul Ketones Ql (U) Negative Normal NEGATIVE [facility] Comment on above: Performed By: #### GINA FELDERRO ####[facility] [address]hrhfntlq[address] [place] [address]Dr. Grace Abdul LEUKOCYTES TRACE Abnormal NEGATIVE [facility] Comment on above: Performed By: #### GINA FELDERRO ####[facility] Njhdoohkpm[address] [place] [address]Dr. Grace Abdul Nitrite Ql (U) Negative Normal NEGATIVE [facility] Comment on above: Performed By: #### ROBERT FELDER ####[facility] Rocyjydalu[address] [place] [address]Dr. Grace Abdul pH (U) 7.5 [pH] Normal 5-9 [facility] Comment on above: Performed By: #### ROBERT FELDER ####[facility] K[address]ginmohz[address] [place] [address]Dr. Grace Abdul SPEC GRAVITY 1.005 Normal 1.005-<=1.025 [facility] Comment on above: Performed By: #### ROBERT FELDER ####[facility] [address]zbydz[address]ip[address] [place] [address]Dr. Grace Abdul UA PROTEIN Negative Normal NEGATIVE/ TRACE [facility] Comment on above: Performed By: #### ROBERT FELDER ####[facility] Pmvxojqbnm[address] [place] [address]Dr. Grace Abdul UR MICRO IND INDICATED Normal [facility] Comment on above: Performed By: #### ROBERT FELDER ####[facility] [address]tlahuhxm[address] [place] [address]Dr. Grace Abdul Urobilinogen Qn (U) 0.2 {Ashley'U}/dL Normal 0.2 - 1. 0 [facility] Comment on above: Performed By: #### ROBERT FELDER ####[facility] Bxwcyk[address]wrf[address] [place] [address]Dr. Grace Abdul LIPASEon 04-04-2022 Lipase [Catalytic activity/Vol] 115.0 U/L Normal 73.0-393.0 [facility] Comment on above: Performed By: #### C VDTB #### [facility] [address] [place] [address] [address] Grace Abdul PROF 14(COMP METB)on 023 Albumin [Mass/Vol] 3.6 g/dL Normal 3.4-5.0 [facility] Comment on above: Performed By: #### C VDTBH #### [facility] [address] [place] [address] [address] Grace Abdul Albumin/Globulin [Mass ratio] 1.1 {ratio} Normal [facility] Comment on above: Performed By: #### C VDTBH #### [facility] [address] [place] [address] [address] Grace Abdul ALP [Catalytic activity/Vol] 74 U/L Normal 46-116 [facility] Comment on above: Performed By: #### C VDTBH #### [facility] [address] [place] [address] [address] Grace Abdul ALT [Catalytic activity/Vol] 23 U/L Normal 14-59 [facility] Comment on above: Performed By: #### C VDTBH #### [facility] [address] [place] [address] Dr. Grace Abdul Anion gap [Moles/Vol] 12.1 mmol/L Normal [facility] Comment on above: Performed By: #### C VDTBH #### [facility] [address] [place] [address] Dr. Grace Abdul AST [Catalytic activity/Vol] 21 U/L Normal 15-37 [facility] Comment on above: Performed By: #### C VDTBH #### [facility] [address] [place] [address] Dr. Grace Abdul Bilirubin [Mass/Vol] 0.2 mg/dL Normal 0.2-1.0 [facility] Comment on above: Performed By: #### C VDTBH #### [facility] [address] [place] [address] [address] Grace Abdul Calcium [Mass/Vol] 9.3 mg/dL Normal 8.5-10.1 [facility] Comment on above: Performed By: #### C VDTBH #### [facility] [address] [place] [address] [address] Grace Abdul Chloride [Moles/Vol] 99 mmol/L Normal 98-107 [facility] Comment on above: Performed By: #### C VDTBH #### [facility] [address] [place] [address] [address] Grace Abdul CO2 [Moles/Vol] 31.2 mmol/L Normal 21.0-32.0 [facility] Comment on above: Performed By: #### C VDTBH #### [facility] [address] [address] [address] Grace Abdul Creatinine [Mass/Vol] 1.22 mg/dL Critically high 0.55-1.02 [facility] Comment on above: Performed By: #### C VDTBH #### [facility] [address] [address] [address] Grace Abdul EGFR-AF ROMANIAN 51 mL/min/1.73m2 Critically low >=60 [facility] Comment on above: Performed By: #### C VDTBH #### [facility] [address] [place] [address] [address] Grace Abdul EGFR-NON AF ROMANIAN 42 mL/min/1.73m2 Critically low >=60 [facility] Comment on above: Performed By: #### C VDTBH #### [facility] [address] [address] [address] Grace Abdul Globulin (S) [Mass/Vol] 3.3 g/dL Normal [facility] Comment on above: Performed By: #### C VDTBH #### [facility] [address] [address] [address] Grace Abdul Glucose [Mass/Vol] 115 mg/dL Critically high 74-106 [facility] Comment on above: Performed By: #### C VDTBH #### [facility] [address] [address] [address] Grace Abdul Potassium [Moles/Vol] 3.3 mmol/L Critically low 3.5-5.1 [facility] Comment on above: Performed By: #### C VDTBH #### [facility] [address] [address] [address] Grace Abdul Protein [Mass/Vol] 6.9 g/dL Normal 6.4-8.2 [facility] Comment on above: Performed By: #### C VDTBH #### [facility] [address] [address] [address] Grace Abdul Sodium [Moles/Vol] 139 mmol/L Normal 136-145 [facility] Comment on above: Performed By: #### C VDTBH #### [facility] [address] [address] [address] Grace Abdul Urea nitrogen [Mass/Vol] 23.0 mg/dL Critically high 7.0-18.0 [facility] Comment on above: Performed By: #### C VDTBH #### [facility] [address] [address] [address] Grace Abdul Urea nitrogen/Creatinine [Mass ratio] 18.9 mg/mg Normal [facility] Comment on above: Performed By: #### C VDTB #### [facility] [address] [address] [address] Grace Abdul URINE MICROSCOPIC ONLYon BACTERIA NONE SEEN Normal NONE SEEN [facility] Comment on above: Performed By: #### Anthony ELLISON UMICRO ####[facility] [address] [place] [address]Dr. Grace Abdul Bacteria identified Cx Nom (U) NOT INDICATED Normal [facility] Comment on above: Performed By: #### Anthony ELLISON UMICRO ####[facility] [address] [place] [address]Dr. Grace Abdul CAST NONE SEEN Normal NONE SEEN [facility] Comment on above: Performed By: #### Anthony ELLISON UMICRO ####[facility] [address]psm[address] [place] [address]Dr. Grace Abdul Crystals LM Nom (Urine sed) NONE SEEN Normal NONE SEEN [facility] Comment on above: Performed By: #### Anthony ELLISON UMICRO ####[facility] [address] [place] [address]Dr. Grace Abdul Epithelial cells LM Ql (Urine sed) RARE Normal NONE SEEN /RARE [facility] Comment on above: Performed By: #### ROBERT FELDER ####[facility] [address] [place] [id number]. Grace Abdul MUCOUS NONE SEEN Normal NONE SEEN [facility] Comment on above: Performed By: #### ROBERT FELDER ####[facility] Rxiburftti[address] [place] [id number]. Grace Abdul RBC 0-2 Normal 0-2 [facility] Comment on above: Performed By: #### ORBERT FELDER ####[facility] [address] [place] [id number]. Grace Abdul WBC 0-2 Abnormal NONE SEEN [facility] Comment on above: Performed By: #### ROBERT FELDER ####[facility] [address] [place] [address]DrLisette Abdul BNPon 12-11-2021 Natriuretic peptide B (Bld) [Mass/Vol] 665.0 pg/mL Normal <=1,800.0 [facility] Comment on above: Performed By: #### B MP #### [facility] [address] [address] [address] Grace Abdul CBC AUTO DIFFon 12-11-2021 BASO # 0.0 103/ul Normal 0.0-0.1 [facility] Comment on above: Performed By: #### C BC ####[facility] [address] [place] [address]DrLisette Abdul Basophils/100 WBC (Bld) 0.5 % Normal 0.2-2.0 [facility] [facility] Comment on above: Performed By: #### C BC ####[facility] [address]ci[address] [place] [address]DrLisette Abdul EO # 0.1 103/ul Normal 0.0-0.7 [facility] Comment on above: Performed By: #### C BC ####[facility] Bmsnjpntlf07[address] [place] [address]DrLisette Abdul Eosinophils/100 WBC (Bld) 1.9 % Normal 0.9-7.0 [facility] Comment on above: Performed By: #### C BC ####[facility] Ozecppbggo[address] [place] [address]Dr. Grace Abdul Erythrocyte distribution width (RBC) [Ratio] 13.4 % Normal 11.0-15.0 [facility] Comment on above: Performed By: #### C BC ####[facility] Dohwroexvy[address] [place] [address]Dr. Grace Abdul Hematocrit (Bld) [Volume fraction] 36.2 % Normal 36.0-48.0 [facility] Comment on above: Performed By: #### C BC ####[facility] Kwtrvxinee[address] [place], [place] [address]DrLisette Grace Abdul Hemoglobin (Bld) [Mass/Vol] 11.9 g/dL Critically low 12.0-16.0 [facility] Comment on above: Performed By: #### C BC ####[facility] Uibsgvgsvd[address] [place], [place] [address]DrLisette Grace Abdul IG # 0.01 10e3/ul Normal 0.00-0.03 [facility] Comment on above: Performed By: #### C BC ####[facility] Ayaydlaveg[address] [place], [place] [address]DrLisette Grace Abdul IG % 0.2 % Normal 0.0-0.5 [facility] Comment on above: Performed By: #### C BC ####[facility] Oiehpmpi[address] [place], [place] [address]DrLisette Grace Abdul LYMPH # 0.5 103/ul Critically low 1.2-3.8 [facility] Comment on above: Performed By: #### C BC ####[facility] Wofbnuugxy[address] [place], [place] [address]DrLisette Grace Abdul Lymphocytes/100 WBC (Bld) 11.5 % Critically low 20.5-60.0 [facility] Comment on above: Performed By: #### C BC ####[facility] Nijqtutzmn[address] [place], [place] [address]DrLisette Grace Franko MANUAL DIFF REQ NO Normal [facility] Comment on above: Performed By: #### C BC ####[facility] Czwbmqgliw[address] [place] [phone]. Grace Franko MCH (RBC) [Entitic mass] 31.6 pg Normal 26.7-34.0 [facility] Comment on above: Performed By: #### C BC ####[facility] Nkmgftavvh8401 [place] [phone]. Grace Franko MCHC (RBC) [Mass/Vol] 32.9 g/dL Normal 29.9-35.2 [facility] Comment on above: Performed By: #### C BC ####[facility] Tzhfcojakf[address] [place] [address]Dr. Grace Abdul MCV (RBC) [Entitic vol] 96.0 fL Normal 81.0-99.0 [facility] Comment on above: Performed By: #### C BC ####[facility] Qoxmakzvty[address] [place], [place] [address]Dr. Grace Abdul MONO # 0.6 103/ul Normal 0.3-0.8 [facility] Comment on above: Performed By: #### C BC ####[facility] Dtymllobdu[address] [place], [place] [address]Dr. Grace Abdul Monocytes/100 WBC (Bld) 14.4 % Critically high 1.7-12.0 [facility] Comment on above: Performed By: #### C BC ####[facility] Uqnbnudpbz[address] [place], [place] [address]Dr. Grace Abdul NEUT # 3.0 103/ul Normal 1.4-6.5 [facility] Comment on above: Performed By: #### C BC ####[facility] Z[address] [place], [place] [id number] Abdul Neutrophils/100 WBC (Bld) 71.5 % Normal 43.0-75.0 [facility] Comment on above: Performed By: #### C BC ####[facility] Oyvislwldh[address] [place], [place] [address]DrLisette Abdul Platelet mean volume (Bld) [Entitic vol] 9.2 fL Critically low 9.5-13.5 [facility] Comment on above: Performed By: #### C BC ####[facility] [address]lw[address] [place], [place] [address]OpLisette Abdul PLT 290 103/ul Normal 150-450 [facility] Comment on above: Performed By: #### C BC ####[facility] Tkeqpjshbe6637 [place], [place] [address]Dl. Grace Abdul RBC 3.77 106/ul Critically low 4.20-5.40 [facility] Comment on above: Performed By: #### C BC ####[facility] Yltcgatiwi1407 [place], [place] [address]Nz. Grace Abdul WBC 4.2 103/ul Normal 4.0-11.0 [facility] Comment on above: Performed By: #### C BC ####[facility] [address]zzutsdkvn[address] [place] [phone]. Grace Abdul FREE THYROXINE INDEX T7on FTI 2.63 Normal 1.30-4.50 [facility] Comment on above: Performed By: #### B MP #### [facility] [address] [address] [address] Grace Abdul T3U 35.0 % Normal 30.0-39.0 [facility] Comment on above: Performed By: #### B MP #### [facility] [address] [address] [address] Grace Abdul T4 [Mass/Vol] 7.50 ug/dL Normal 4.80-13.90 [facility] Comment on above: Performed By: #### B MP #### [facility] [address] [address] [address] Grace Abdul GLYCOHEMOGLOBIN A1Con 2021 ADA RECOMMENDATION SEE BELOW Normal [facility] Comment on above: Result Comment: ADA RECOMMENDED LIMIT 4.0 - 6.0 ADA THERAPEUTIC TARGET < 7.0 ACTION SUGGESTED > 7.0 Performed By: #### A 1C ####[facility] [address]zqtttiqll[address] [place] [address]Dr. Grace Abdul Glucose [Mass/Vol] 111 mg/dL Normal [facility] Comment on above: Performed By: #### A 1C ####[facility] [address]yadnixd[address] [place] [phone]. Grace Abdul HbA1c (Bld) [Mass fraction] 5.5 % Normal 4.5-6.2 [facility] Comment on above: Performed By: #### A 1C ####[facility] [address]ajs[address] [place] [phone]. Grace Abdul IRONon 12-11-2021 Iron [Mass/Vol] 50.0 ug/dL Normal 50.0-170.0 [facility] Comment on above: Performed By: #### I KASANDRA WEBSTER VITB12 ####[facility] [address]anypdoytp[address] [place] [phone] Abdul LIPID PROFILEon 12-11-2021 CHOL-HDL RATIO NORM SEE BELOW Normal [facility] Comment on above: Result Comment: 3.3 - 4.4 LOW RISK 4.4 - 7.1 AVERAGE RISK 7.1 - 11.0 MODERATE RISK >11.0 HIGH RISK Performed By: #### B MP #### [facility] [address] [address] [address] Grace Abdul Cholesterol [Mass/Vol] 182 mg/dL Normal <=200 [facility] Comment on above: Performed By: #### B MP #### [facility] [address] [address] [address] Grace Abdul Cholesterol in HDL [Mass/Vol] 60 mg/dL Normal 40-60 [facility] Comment on above: Performed By: #### B MP #### [facility] [address] [address] [address] Grace Abdul Cholesterol in LDL [Mass/Vol] 101.2 mg/dL Normal [facility] Comment on above: Performed By: #### B MP #### [facility] [address] [address] [address] Grace Abdul Cholesterol.total/Ch olesterol in HDL [Mass ratio] 3.0 {ratio} Normal [facility] Comment on above: Performed By: #### B MP #### [facility] [address] [address] [address] Grace Abdul HDL NORMAL > or = 60 mg/dl - LO W CARDIOVASCULAR RISK <40 mg/dl - HIGH CARDIOVASCULAR RISK Normal [facility] Comment on above: Performed By: #### B MP #### [facility] [address] [address] [address] Grace Abdul LDL CALC NORMAL SEE BELOW Normal [facility] Comment on above: Result Comment: <100 mg/dl OPTIMAL 100 - 129 mg/dl NEAR OR ABOVE OPTIMAL 130 - 159 mg/dl BORDERLINE HIGH 160 - 189 mg/dl HIGH >190 mg/dl VERY HIGH Performed By: #### B MP #### [facility] [address] [place] [address] Dr. Grace Abdul Triglyceride [Mass/Vol] 104 mg/dL Normal <=150 [facility] Comment on above: Performed By: #### B MP #### [facility] [address] [address] [address] Grace Abdul VLDL CALC 20.8 mg/dL Normal [facility] Comment on above: Performed By: #### B MP #### [facility] [address] [place] [address] Dr. Grace Abdul PROF 14(COMP METB)on 022 Albumin [Mass/Vol] 3.5 g/dL Normal 3.4-5.0 [facility] Comment on above: Performed By: #### B MP #### [facility] [address] [place] [address] Dr. Grace Abdul Albumin/Globulin [Mass ratio] 1.0 {ratio} Normal [facility] Comment on above: Performed By: #### B MP #### [facility] [address] [place] [address] Dr. Grace Abdul ALP [Catalytic activity/Vol] 55 U/L Normal 46-116 [facility] Comment on above: Performed By: #### B MP #### [facility] [address] [place] [address] Dr. Grace Abdul ALT [Catalytic activity/Vol] 21 U/L Normal 14-59 [facility] Comment on above: Performed By: #### B MP #### [facility] [address] [address] [address] Grace Abdul Anion gap [Moles/Vol] 9.3 mmol/L Normal [facility] Comment on above: Performed By: #### B MP #### [facility] [address] [address] [address] Grace Abdul AST [Catalytic activity/Vol] 21 U/L Normal 15-37 [facility] Comment on above: Performed By: #### B MP #### [facility] [address] [address] [address] Grace Abdul Bilirubin [Mass/Vol] 0.3 mg/dL Normal 0.2-1.0 [facility] Comment on above: Performed By: #### B MP #### [facility] [address] [address] [address] Grace Abdul Calcium [Mass/Vol] 9.5 mg/dL Normal 8.5-10.1 [facility] Comment on above: Performed By: #### B MP #### [facility] [address] [place] [address] Dr. Grace Abdul Chloride [Moles/Vol] 102 mmol/L Normal 98-107 [facility] Comment on above: Performed By: #### B MP #### [facility] [address] [address] [address] Grace Abdul CO2 [Moles/Vol] 28.5 mmol/L Normal 21.0-32.0 [facility] Comment on above: Performed By: #### B MP #### [facility] [address] [address] [address] Grace Abdul Creatinine [Mass/Vol] 1.04 mg/dL Critically high 0.55-1.02 [facility] Comment on above: Performed By: #### B MP #### [facility] [address] [address] [address] Grace Abdul EGFR-AF ROMANIAN >60 Normal >=60 [facility] Comment on above: Performed By: #### B MP #### [facility] [address] [address] [address] Grace Abdul EGFR-NON AF ROMANIAN 51 mL/min/1.73m2 Critically low >=60 [facility] Comment on above: Performed By: #### B MP #### [facility] [address] [address] [address] Grace Abdul Globulin (S) [Mass/Vol] 3.5 g/dL Normal [facility] Comment on above: Performed By: #### B MP #### [facility] [address] [address] [address] Grace Abdul Glucose [Mass/Vol] 102 mg/dL Normal 74-106 [facility] Comment on above: Performed By: #### B MP #### [facility] [address] [address] [address] Grace Abdul Potassium [Moles/Vol] 3.8 mmol/L Normal 3.5-5.1 [facility] Comment on above: Performed By: #### B MP #### [facility] [address] [address] [address] Grace Abdul Protein [Mass/Vol] 7.0 g/dL Normal 6.4-8.2 [facility] Comment on above: Performed By: #### B MP #### [facility] [address] [address] [address] Grace Abdul Sodium [Moles/Vol] 136 mmol/L Normal 136-145 [facility] Comment on above: Performed By: #### B MP #### [facility] [address] [address] [address] Grace Abdul Urea nitrogen [Mass/Vol] 20.0 mg/dL Critically high 7.0-18.0 [facility] Comment on above: Performed By: #### B MP #### [facility] [address] [address] [address] Grace Abdul Urea nitrogen/Creatinine [Mass ratio] 19.2 mg/mg Normal [facility] Comment on above: Performed By: #### B MP #### [facility] [address] [address] [address] Grace Abdul TSHon 12-11-2021 TSH 0.247 uIU/mL Critically low 0.358-3.740 [facility] Comment on above: Performed By: #### B MP #### [facility] [address] [address] [address] Grace Abdul VITAMIN B12on 12-11-2021 Cobalamin (Vitamin B12) [Mass/Vol] 762.0 pg/mL Normal 193.0-986.0 [facility] Comment on above: Performed By: #### I DARIN VITAD, VITB12 ####[facility] [address] [place] [address]Dr. Grace Abdul VITAMIN D 25 OHon 12-11-2021 VIT D 25-OH 54.9 ng/mL Normal [facility] Comment on above: Performed By: #### I DARIN VITAD, VITB12 ####[facility] [address] [place] [address]DrLisette Abdul VIT D RANGES SEE BELOW Normal [facility] Comment on above: Result Comment: <20 ng/mL Vit D deficient 20 - <30 ng/mL Vit D insufficient 30 - 100 ng/mL Vit D sufficient >100 ng/mL Potential Toxicity Performed By: #### I DARIN VITAD, VITB12 ####[facility] [address] [place] [address]DrLisette Abdul MG MAMM SCREEN 3D CLEMENCIA CADon 11-25-2021 MG MAMM SCREEN 3D CLEMENCIA CAD Patient: ALEXA DELGADO Exam Date: 11/25/2021 : 1940 Gender:F Ordering : DR GALINA ROGERS . Admission #: [id number] Family : DR ARMANDO MORALES Order #: [id number] CLICK HERE TO VIEW EXAM RADIOLOGY REPORT [...] #### U RCX ####[facility] [address] [place] [address]Dr. Grace Abdul GI PANEL (PCR)on 11-24-2021 Adenovirus F 40/41 Not detected Normal NOT DETECTED [facility] Comment on above: Performed By: #### C BC #### [facility] [address] [place] [address] Dr. Grace Abdul Astrovirus Not detected Normal NOT DETECTED [facility] Comment on above: Performed By: #### C BC #### [facility] [address] [place] [address] Dr. Grace Abdul C. Diff toxin A/B Not detected Normal NOT DETECTED [facility] Comment on above: Performed By: #### C BC #### [facility] [address] [address] [address] Grace Abdul Campylobacter Not detected Normal NOT DETECTED [facility] Comment on above: Performed By: #### C BC #### [facility] [address] [place] [address] Dr. Grace Abdul Cryptosporidium Not detected Normal NOT DETECTED [facility] Comment on above: Performed By: #### C BC #### [facility] [address] [place] [address] Dr. Grace Abdul Cyclos. Cayetanensis Not detected Normal NOT DETECTED [facility] Comment on above: Performed By: #### C BC #### [facility] [address] [place] [address] Dr. Grace Abdul E. Coli O157 Not Applicable Normal Not Applicable [facility] Comment on above: Performed By: #### C BC #### [facility] [address] [place] [address] Dr. Grace Abdul E. histolytica Not detected Normal NOT DETECTED [facility] Comment on above: Performed By: #### C BC #### [facility] [address] [place] [address] Dr. Grace Abdul EAEC Not detected Normal NOT DETECTED [facility] Comment on above: Performed By: #### C BC #### [facility] [address] [place] [address] Dr. Grace Abdul EIEC Not detected Normal NOT DETECTED [facility] Comment on above: Performed By: #### C BC #### [facility] [address] [place] [address] Dr. Grace Abdul EPEC Not detected Normal NOT DETECTED [facility] Comment on above: Performed By: #### C BC #### [facility] [address] [place] [address] Dr. Grace Abdul ETEC Not detected Normal NOT DETECTED [facility] Comment on above: Performed By: #### C BC #### [facility] [address] [place] [address] Dr. Grace Abdul G. Lamblia Not detected Normal NOT DETECTED [facility] Comment on above: Performed By: #### C BC #### [facility] [address] [place] [address] Dr. Grace BURGESSL CONTROLS PASSED Normal [facility] Comment on above: Performed By: #### C BC #### [facility] [address] [place] [address] Dr. Grace NOLASCONL KAUR HEADER GI PANEL BACTERIA Normal T [facility] Comment on above: Performed By: #### C BC #### [facility] [address] [address] [address] Grace SANDERS ECOLI GI PANEL DIARRHEAGEN IC E.COLI / SHIGELLA Normal [facility] Comment on above: Performed By: #### C BC #### [facility] [address] [address] [address] Grace SANDERS INFO SEE BELOW Normal [facility] Comment on above: Result Comment: EAEC - Enteroaggregative E. Coli EPEC- Enteropathogenic E. Coli ETEC- Enterotoxigenic E. Coli lt/st STEC- Shigella-like toxin-producing E. Coli stx1/stx2 EIEC- Shigella/Enteroinvasive E. Coli Performed By: #### C BC #### [facility] [address] [address] [address] Grace SANDERS PARASITES GI PANEL PARASITES Normal [facility] Comment on above: Performed By: #### C BC #### [facility] [address] [address] [address] Grace SANDERS VIRUS GI PANEL VIRUSES Normal [facility] Comment on above: Performed By: #### C BC #### [facility] [address] [address] [address] Grace Abdul Norovirus GI/GII Not detected Normal NOT DETECTED [facility] Comment on above: Performed By: #### C BC #### [facility] [address] [address] [address] Grace Abdul P. Shigelloides Not detected Normal NOT DETECTED [facility] Comment on above: Performed By: #### C BC #### [facility] [address] [address] [address] Grace Abdul Rotavirus A Not detected Normal NOT DETECTED [facility] Comment on above: Performed By: #### C BC #### [facility] [address] [address] [address] Grace Abdul Salmonella Not detected Normal NOT DETECTED [facility] Comment on above: Performed By: #### C BC #### [facility] [address] [address] [address] Grace Abdul Sapovirus Not detected Normal NOT DETECTED [facility] Comment on above: Performed By: #### C BC #### [facility] [address] [address] [address] Grace Abdul STEC Not detected Normal NOT DETECTED [facility] Comment on above: Performed By: #### C BC #### [facility] [address] [address] [address] Grace Abdul Vibrio Not detected Normal NOT DETECTED [facility] Comment on above: Performed By: #### C BC #### [facility] [address] [address] [address] Grace Abdul Vibrio Cholera Not detected Normal NOT DETECTED [facility] Comment on above: Performed By: #### C BC #### [facility] [address] [place] [address] Dr. Grace Abdul Y. Enterocolitica Not detected Normal NOT DETECTED [facility] Comment on above: Performed By: #### C BC #### [facility] [address] [place] [address] Dr. Grace Abdul UA RANDOM W/MICROSCOPICon BACTERIA NONE SEEN Normal NONE SEEN [facility] Comment on above: Performed By: #### U AMIC ####[facility] [address] [place] [address]DrLisette Abdul Bilirubin Ql (U) Negative Normal NEGATIVE [facility] Comment on above: Performed By: #### U AMIC ####[facility] [address] [place] [address]DrLisette Abdul CAST NONE SEEN Normal NONE SEEN [facility] Comment on above: Performed By: #### U AMIC ####[facility] [address] [place], [place] [address]DrLisette Abdul Clarity (U) CLEAR Normal CLEAR [facility] Comment on above: Performed By: #### U AMIC ####[facility] [address] [place] [address]DrLisette Abdul Color (U) LT. YELLOW Normal YELLOW [facility] Comment on above: Performed By: #### U AMIC ####[facility] [address] [place] [address]Dr. Grace Abdul Crystals LM Nom (Urine sed) NONE SEEN Normal NONE SEEN [facility] Comment on above: Performed By: #### U AMIC ####[facility] [address] [place] [phone]. Grace Abdul Epithelial cells LM Ql (Urine sed) FEW Abnormal NONE SEEN /RARE [facility] Comment on above: Performed By: #### U AMIC ####[facility] [address]mh[address] [place] [address]Dr. Grace Abdul Glucose Ql (U) Negative Normal NEGATIVE [facility] Comment on above: Performed By: #### U AMIC ####[facility] [address] [place] [address]Dr. Grace Abdul Hemoglobin Ql (U) TRACE-INTACT Abnormal NEGATIVE [facility] Comment on above: Performed By: #### U AMIC ####[facility] [address] [place] [address]Dr. Grace Abdul Ketones Ql (U) Negative Normal NEGATIVE [facility] Comment on above: Performed By: #### U AMIC ####[facility] [address] [place] [address]Dr. Grace Abdul LEUKOCYTES Negative Normal NEGATIVE [facility] Comment on above: Performed By: #### U AMIC ####[facility] [address] [place] [address]Dr. Grace Abdul MUCOUS NONE SEEN Normal NONE SEEN [facility] Comment on above: Performed By: #### U AMIC ####[facility] [address]llmb[address] [place] [address]Dr. Grace Abdul Nitrite Ql (U) Negative Normal NEGATIVE [facility] Comment on above: Performed By: #### U AMIC ####[facility] [address]glsxpjsi[address] [place] [address]Dr. Grace Abdul pH (U) 7.5 [pH] Normal 5-9 [facility] Comment on above: Performed By: #### U AMIC ####[facility] [address]kb[address] [place] [address]Dr. Grace Abdul RBC 0-2 Normal 0-2 [facility] Comment on above: Performed By: #### U AMIC ####[facility] [address] [place] [phone]. Grace Abdul SPEC GRAVITY 1.010 Normal 1.005-<=1.025 [facility] Comment on above: Performed By: #### U AMIC ####[facility] [address]xs[address]zbihsy[address] [place] [address]Dr. Grace Abdul UA PROTEIN Negative Normal NEGATIVE/ TRACE [facility] Comment on above: Performed By: #### U AMIC ####[facility] [address] [place] [address]Dr. Grace Abdul Urobilinogen Qn (U) 0.2 {Ashley'U}/dL Normal 0.2 - 1. 0 [facility] Comment on above: Performed By: #### U AMIC ####[facility] [address]ur[address] [place] [address]Dr. Grace Abdul WBC NONE SEEN Normal NONE SEEN [facility] Comment on above: Performed By: #### U AMIC ####[facility] [address] [place] [address]Dr. Grace Abdul CBC AUTO DIFFon 11-23-2021 BASO # 0.0 103/ul Normal 0.0-0.1 [facility] Comment on above: Performed By: #### C BC #### [facility] [address] [address] [address] Grace Abdul Basophils/100 WBC (Bld) 0.4 % Normal 0.2-2.0 [facility] Comment on above: Performed By: #### C BC #### [facility] [address] [address] [address] Grace Abdul EO # 0.1 103/ul Normal 0.0-0.7 [facility] Comment on above: Performed By: #### C BC #### [facility] [address] [place] [address] Dr. Grace Abdul Eosinophils/100 WBC (Bld) 1.5 % Normal 0.9-7.0 [facility] Comment on above: Performed By: #### C BC #### [facility] [address] [place] [address] Dr. Grace Abdul Erythrocyte distribution width (RBC) [Ratio] 13.2 % Normal 11.0-15.0 [facility] Comment on above: Performed By: #### C BC #### [facility] [address] [place] [address] Dr. Grace Abdul Hematocrit (Bld) [Volume fraction] 31.9 % Critically low 36.0-48.0 [facility] Comment on above: Performed By: #### C BC #### [facility] [address] [place] [address] Dr. Grace Abdul Hemoglobin (Bld) [Mass/Vol] 10.5 g/dL Critically low 12.0-16.0 [facility] Comment on above: Performed By: #### C BC #### [facility] [address] [place] [address] Dr. Grace Abdul IG # 0.01 10e3/ul Normal 0.00-0.03 [facility] Comment on above: Performed By: #### C BC #### [facility] [address] [place] [address] Dr. Grace Abdul IG % 0.2 % Normal 0.0-0.5 [facility] Comment on above: Performed By: #### C BC #### [facility] [address] [place] [address] Dr. Grace Abdul LYMPH # 0.7 103/ul Critically low 1.2-3.8 [facility] Comment on above: Performed By: #### C BC #### [facility] [address] [place] [address] Dr. Grace Abdul Lymphocytes/100 WBC (Bld) 14.8 % Critically low 20.5-60.0 [facility] Comment on above: Performed By: #### C BC #### [facility] [address] [place] [address] Dr. Grace Abdul MANUAL DIFF REQ NO Normal [facility] Comment on above: Performed By: #### C BC #### [facility] [address] [place] [address] Dr. Grace Abdul MCH (RBC) [Entitic mass] 31.4 pg Normal 26.7-34.0 [facility] Comment on above: Performed By: #### C BC #### [facility] [address] [place] [address] Dr. Grace Abdul MCHC (RBC) [Mass/Vol] 32.9 g/dL Normal 29.9-35.2 [facility] Comment on above: Performed By: #### C BC #### [facility] [address] [place] [address] Dr. Grace Abdul MCV (RBC) [Entitic vol] 95.5 fL Normal 81.0-99.0 [facility] Comment on above: Performed By: #### C BC #### [facility] [address] [place] [address] Dr. Grace Abdul MONO # 0.6 103/ul Normal 0.3-0.8 [facility] Comment on above: Performed By: #### C BC #### [facility] [address] [place] [address] Dr. Grace Abdul Monocytes/100 WBC (Bld) 13.4 % Critically high 1.7-12.0 [facility] Comment on above: Performed By: #### C BC #### [facility] [address] [place] [address] Dr. Grace Abdul NEUT # 3.3 103/ul Normal 1.4-6.5 [facility] Comment on above: Performed By: #### C BC #### [facility] [address] [place] [address] Dr. Grace Abdul Neutrophils/100 WBC (Bld) 69.7 % Normal 43.0-75.0 [facility] Comment on above: Performed By: #### C BC #### [facility] [address] [address] [address] Grace Abdul Platelet mean volume (Bld) [Entitic vol] 9.1 fL Critically low 9.5-13.5 [facility] Comment on above: Performed By: #### C BC #### [facility] [address] [address] [address] Grace Abdul PLT 335 103/ul Normal 150-450 [facility] Comment on above: Performed By: #### C BC #### [facility] [address] [address] [address] Grace Abdul RBC 3.34 106/ul Critically low 4.20-5.40 [facility] Comment on above: Performed By: #### C BC #### [facility] [address] [address] [address] Grace Abdul WBC 4.8 103/ul Normal 4.0-11.0 [facility] Comment on above: Performed By: #### C BC #### [facility] [address] [address] [address] Grace Abdul FREE THYROXINE INDEX T7on FTI 1.15 Critically low 1.30-4.50 [facility] Comment on above: Performed By: #### T 7, CMP, TSH ####[facility] [address] [id number] Abdul T3U 31.0 % Normal 30.0-39.0 [facility] Comment on above: Performed By: #### T 7, CMP, TSH ####[facility] [address] [id number]. Grace Abdul T4 [Mass/Vol] 3.70 ug/dL Critically low 4.80-13.90 [facility] Comment on above: Performed By: #### T 7, CMP, TSH ####[facility] [address] [id number]. Grace Abdul IRONon 11-23-2021 Iron [Mass/Vol] 52.0 ug/dL Normal 50.0-170.0 [facility] Comment on above: Performed By: #### C VDTBH #### [facility] [address] [place], [place] [address] Dr. Grace Abdul PROF 14(COMP METB)on 022 Albumin [Mass/Vol] 3.5 g/dL Normal 3.4-5.0 [facility] Comment on above: Performed By: #### T 7, CMP, TSH ####[facility] [address] [id number]. Grace Abdul Albumin/Globulin [Mass ratio] 1.1 {ratio} Normal [facility] Comment on above: Performed By: #### T 7, CMP, TSH ####[facility] [address] [address]Dr. Grace Abdul ALP [Catalytic activity/Vol] 69 U/L Normal 46-116 [facility] Comment on above: Performed By: #### T 7, CMP, TSH ####[facility] [address] [address]Dr. Grace Abdul ALT [Catalytic activity/Vol] 51 U/L Normal 14-59 [facility] Comment on above: Performed By: #### T 7, CMP, TSH ####[facility] [address] [address]Dr. Grace Abdul Anion gap [Moles/Vol] 11.5 mmol/L Normal [facility] Comment on above: Performed By: #### T 7, CMP, TSH ####[facility] [address] [address]Dr. Grace Abdul AST [Catalytic activity/Vol] 24 U/L Normal 15-37 [facility] Comment on above: Performed By: #### T 7, CMP, TSH ####[facility] [address] [address]Dr. Grace Abdul Bilirubin [Mass/Vol] 0.2 mg/dL Normal 0.2-1.0 [facility] Comment on above: Performed By: #### T 7, CMP, TSH ####[facility] [address] [address]Dr. Grace Abdul Calcium [Mass/Vol] 9.3 mg/dL Normal 8.5-10.1 [facility] Comment on above: Performed By: #### T 7, CMP, TSH ####[facility] [address] [address]Dr. Grace Abdul Chloride [Moles/Vol] 98 mmol/L Normal 98-107 [facility] Comment on above: Performed By: #### T 7, CMP, TSH ####[facility] [address] [address]Dr. Grace Abdul CO2 [Moles/Vol] 28.7 mmol/L Normal 21.0-32.0 [facility] Comment on above: Performed By: #### T 7, CMP, TSH ####[facility] [address] [place], [place] [address]Dr. Grace Abdul Creatinine [Mass/Vol] 1.11 mg/dL Critically high 0.55-1.02 [facility] Comment on above: Performed By: #### T 7, CMP, TSH ####[facility] [address] [place], [place] [address]Dr. Grace Abdul EGFR-AF ROMANIAN 57 mL/min/1.73m2 Critically low >=60 [facility] Comment on above: Performed By: #### T 7, CMP, TSH ####[facility] [address] [place], [place] [address]Dr. Grace Abdul EGFR-NON AF ROMANIAN 47 mL/min/1.73m2 Critically low >=60 [facility] Comment on above: Performed By: #### T 7, CMP, TSH ####[facility] [address] [address]Dr. Grace Abdul Globulin (S) [Mass/Vol] 3.3 g/dL Normal [facility] Comment on above: Performed By: #### T 7, CMP, TSH ####[facility] [address] [address]Dr. Grace Abdul Glucose [Mass/Vol] 88 mg/dL Normal 74-106 [facility] Comment on above: Performed By: #### T 7, CMP, TSH ####[facility] [address] [phone]. Grace Abdul Potassium [Moles/Vol] 4.2 mmol/L Normal 3.5-5.1 [facility] Comment on above: Performed By: #### T 7, CMP, TSH ####[facility] [address] [address]Dr. Grace Abdul Protein [Mass/Vol] 6.8 g/dL Normal 6.4-8.2 [facility] Comment on above: Performed By: #### T 7, CMP, TSH ####[facility] [address] [address]Dr. Grace Abdul Sodium [Moles/Vol] 134 mmol/L Critically low 136-145 [facility] Comment on above: Performed By: #### T 7, CMP, TSH ####[facility] [address] [address]Dr. Grace Abdul Urea nitrogen [Mass/Vol] 33.0 mg/dL Critically high 7.0-18.0 [facility] Comment on above: Performed By: #### T 7, CMP, TSH ####[facility] [address] [address]Dr. Grace Abdul Urea nitrogen/Creatinine [Mass ratio] 29.7 mg/mg Normal [facility] Comment on above: Performed By: #### T 7, CMP, TSH ####[facility] [address] [address]Dr. Grace Franko TSHon 11-23-2021 TSH 0.469 uIU/mL Normal 0.358-3.740 [facility] Comment on above: Performed By: #### T 7, CMP, TSH ####[facility] [address] [address]Dr. Grace Abdul CBC AUTO DIFFon 11-17-2021 BASO # 0.0 103/ul Normal 0.0-0.1 [facility] Comment on above: Performed By: #### C VDTBH #### [facility] [address] [address] [address] Grace Abdul Basophils/100 WBC (Bld) 0.2 % Normal 0.2-2.0 [facility] Comment on above: Performed By: #### C VDTBH #### [facility] [address] [place] [address] Dr. Grace Abdul EO # 0.1 103/ul Normal 0.0-0.7 [facility] Comment on above: Performed By: #### C VDTBH #### [facility] [address] [place] [address] Dr. Grace Abdul Eosinophils/100 WBC (Bld) 0.9 % Normal 0.9-7.0 [facility] Comment on above: Performed By: #### C VDTBH #### [facility] [address] [place] [address] Dr. Grace Abdul Erythrocyte distribution width (RBC) [Ratio] 12.8 % Normal 11.0-15.0 [facility] Comment on above: Performed By: #### C VDTBH #### [facility] [address] [place] [address] Dr. Grace Abdul Hematocrit (Bld) [Volume fraction] 35.2 % Critically low 36.0-48.0 [facility] Comment on above: Performed By: #### C VDTBH #### [facility] [address] [place] [address] Dr. Grace Abdul Hemoglobin (Bld) [Mass/Vol] 12.1 g/dL Normal 12.0-16.0 [facility] Comment on above: Performed By: #### C VDTBH #### [facility] [address] [place] [address] Dr. Grace Abdul IG # 0.05 10e3/ul Critically high 0.00-0.03 [facility] Comment on above: Performed By: #### C VDTBH #### [facility] [address] [place] [address] Dr. Grace Abdul IG % 0.6 % Critically high 0.0-0.5 [facility] Comment on above: Performed By: #### C VDTBH #### [facility] [address] [address] [address] Grace Abdul LYMPH # 0.6 103/ul Critically low 1.2-3.8 [facility] Comment on above: Performed By: #### C VDTBH #### [facility] [address] [address] [address] Grace Abdul Lymphocytes/100 WBC (Bld) 7.4 % Critically low 20.5-60.0 [facility] Comment on above: Performed By: #### C VDTBH #### [facility] [address] [address] [address] Grace Abdul MANUAL DIFF REQ NO Normal [facility] Comment on above: Performed By: #### C VDTBH #### [facility] [address] [place] [address] Dr. Grace Abdul MCH (RBC) [Entitic mass] 31.5 pg Normal 26.7-34.0 [facility] Comment on above: Performed By: #### C VDTBH #### [facility] [address] [place] [address] Dr. Grace Abdul MCHC (RBC) [Mass/Vol] 34.4 g/dL Normal 29.9-35.2 [facility] Comment on above: Performed By: #### C VDTBH #### [facility] [address] [place] [address] Dr. Grace Abdul MCV (RBC) [Entitic vol] 91.7 fL Normal 81.0-99.0 [facility] Comment on above: Performed By: #### C VDTBH #### [facility] [address] [place] [address] Dr. Grace Abdul MONO # 1.0 103/ul Critically high 0.3-0.8 [facility] Comment on above: Performed By: #### C VDTBH #### [facility] [address] [place] [address] Dr. Grace Abdul Monocytes/100 WBC (Bld) 12.1 % Critically high 1.7-12.0 [facility] Comment on above: Performed By: #### C VDTBH #### [facility] [address] [address] [address] Grace Abdul NEUT # 6.3 103/ul Normal 1.4-6.5 [facility] Comment on above: Performed By: #### C VDTBH #### [facility] [address] [address] [address] Grace Abdul Neutrophils/100 WBC (Bld) 78.8 % Critically high 43.0-75.0 [facility] Comment on above: Performed By: #### C VDTBH #### [facility] [address] [address] [address] Grace Abdul Platelet mean volume (Bld) [Entitic vol] 9.1 fL Critically low 9.5-13.5 [facility] Comment on above: Performed By: #### C VDTBH #### [facility] [address] [place] [address] Dr. Grace Abdul PLT 281 103/ul Normal 150-450 [facility] Comment on above: Performed By: #### C VDTBH #### [facility] [address] [address] [address] Grace Abdul RBC 3.84 106/ul Critically low 4.20-5.40 [facility] Comment on above: Performed By: #### C VDTBH #### [facility] [address] [address] [address] Grace Abdul WBC 8.0 103/ul Normal 4.0-11.0 [facility] Comment on above: Performed By: #### C VDTBH #### [facility] [address] [place] [address] Dr. Grace Abdul MAGNESIUMon 11-17-2021 Magnesium [Mass/Vol] 1.9 mg/dL Normal 1.8-2.4 [facility] Comment on above: Performed By: #### C VDTBH #### [facility] [address] [place] [address] Dr. Grace Abdul PROF CHEM 8 (BAS METB)on Anion gap [Moles/Vol] 13.9 mmol/L Normal [facility] Comment on above: Performed By: #### C VDTBH #### [facility] [address] [place] [address] Dr. Grace Abdul Calcium [Mass/Vol] 8.7 mg/dL Normal 8.5-10.1 [facility] Comment on above: Performed By: #### C VDTBH #### [facility] [address] [place] [address] Dr. Grace Abdul Chloride [Moles/Vol] 101 mmol/L Normal 98-107 [facility] Comment on above: Performed By: #### C VDTBH #### [facility] [address] [place] [address] Dr. Grace Abdul CO2 [Moles/Vol] 24.3 mmol/L Normal 21.0-32.0 [facility] Comment on above: Performed By: #### C VDTBH #### [facility] [address] [place] [address] Dr. Grace Abdul Creatinine [Mass/Vol] 0.89 mg/dL Normal 0.55-1.02 [facility] Comment on above: Performed By: #### C VDTBH #### [facility] [address] [place] [address] Dr. Grace Abdul EGFR-AF ROMANIAN >60 Normal >=60 [facility] Comment on above: Performed By: #### C VDTBH #### [facility] [address] [place] [address] Dr. Grace Abdul EGFR-NON AF ROMANIAN >60 Normal >=60 [facility] Comment on above: Performed By: #### C VDTBH #### [facility] [address] [place] [address] Dr. Grace Abdul Glucose [Mass/Vol] 97 mg/dL Normal 74-106 [facility] Comment on above: Performed By: #### C VDTBH #### [facility] [address] [place] [address] Dr. Grace Abdul Potassium [Moles/Vol] 3.2 mmol/L Critically low 3.5-5.1 [facility] Comment on above: Performed By: #### C VDTBH #### [facility] [address] [place] [address] Dr. Grace Abdul Sodium [Moles/Vol] 136 mmol/L Normal 136-145 [facility] Comment on above: Performed By: #### C VDTBH #### [facility] [address] [place] [address] Dr. Grace Abdul Urea nitrogen [Mass/Vol] 14.0 mg/dL Normal 7.0-18.0 [facility] Comment on above: Performed By: #### C VDTBH #### [facility] [address] [place] [address] Dr. Grace Abdul Urea nitrogen/Creatinine [Mass ratio] 15.7 mg/mg Normal [facility] Comment on above: Performed By: #### C VDTBH #### [facility] [address] [place] [address] Dr. Grace Abdul CBC AUTO DIFFon 11-16-2021 BASO # 0.0 103/ul Normal 0.0-0.1 [facility] Comment on above: Performed By: #### B MP #### [facility] [address] [place] [address] Dr. Grace Abdul Basophils/100 WBC (Bld) 0.2 % Normal 0.2-2.0 [facility] Comment on above: Performed By: #### B MP #### [facility] [address] [place] [address] Dr. Grace Abdul EO # 0.0 103/ul Normal 0.0-0.7 [facility] Comment on above: Performed By: #### B MP #### [facility] [address] [place] [address] Dr. Grace Abdul Eosinophils/100 WBC (Bld) 0.5 % Critically low 0.9-7.0 [facility] Comment on above: Performed By: #### B MP #### [facility] [address] [place] [address] Dr. Grace Abdul Erythrocyte distribution width (RBC) [Ratio] 12.4 % Normal 11.0-15.0 [facility] Comment on above: Performed By: #### B MP #### [facility] [address] [place] [address] Dr. Grace Abdul Hematocrit (Bld) [Volume fraction] 33.6 % Critically low 36.0-48.0 [facility] Comment on above: Performed By: #### B MP #### [facility] [address] [place] [address] Dr. Grace Abdul Hemoglobin (Bld) [Mass/Vol] 11.8 g/dL Critically low 12.0-16.0 [facility] Comment on above: Performed By: #### B MP #### [facility] [address] [place] [address] Dr. Grace Abdul IG # 0.04 10e3/ul Critically high 0.00-0.03 [facility] Comment on above: Performed By: #### B MP #### [facility] [address] [place] [address] Dr. Grace Abdul IG % 0.7 % Critically high 0.0-0.5 [facility] Comment on above: Performed By: #### B MP #### [facility] [address] [place] [address] Dr. Grace Abdul LYMPH # 0.7 103/ul Critically low 1.2-3.8 [facility] Comment on above: Performed By: #### B MP #### [facility] [address] [place] [address] Dr. Grace Abdul Lymphocytes/100 WBC (Bld) 11.1 % Critically low 20.5-60.0 [facility] Comment on above: Performed By: #### B MP #### [facility] [address] [place] [address] Dr. Grace Abdul MANUAL DIFF REQ NO Normal [facility] Comment on above: Performed By: #### B MP #### [facility] [address] [place] [address] Dr. Grace Abdul MCH (RBC) [Entitic mass] 31.5 pg Normal 26.7-34.0 [facility] Comment on above: Performed By: #### B MP #### [facility] [address] [place] [address] Dr. Grace Abdul MCHC (RBC) [Mass/Vol] 35.1 g/dL Normal 29.9-35.2 [facility] Comment on above: Performed By: #### B MP #### [facility] [address] [place] [address] Dr. Grace Abdul MCV (RBC) [Entitic vol] 89.6 fL Normal 81.0-99.0 [facility] Comment on above: Performed By: #### B MP #### [facility] [address] [place] [address] Dr. Grace Abdul MONO # 0.9 103/ul Critically high 0.3-0.8 [facility] Comment on above: Performed By: #### B MP #### [facility] [address] [place] [address] Dr. Grace Abdul Monocytes/100 WBC (Bld) 14.0 % Critically high 1.7-12.0 [facility] Comment on above: Performed By: #### B MP #### [facility] [address] [place] [address] Dr. Grace Abdul NEUT # 4.5 103/ul Normal 1.4-6.5 [facility] Comment on above: Performed By: #### B MP #### [facility] [address] [place] [address] Dr. Grace Abdul Neutrophils/100 WBC (Bld) 73.5 % Normal 43.0-75.0 [facility] Comment on above: Performed By: #### B MP #### [facility] [address] [place] [address] Dr. Grace Abdul Platelet mean volume (Bld) [Entitic vol] 9.3 fL Critically low 9.5-13.5 [facility] Comment on above: Performed By: #### B MP #### [facility] [address] [place] [address] Dr. Grace Abdul PLT 292 103/ul Normal 150-450 [facility] Comment on above: Performed By: #### B MP #### [facility] [address] [address] [address] Grace Abdul RBC 3.75 106/ul Critically low 4.20-5.40 [facility] Comment on above: Performed By: #### B MP #### [facility] [address] [address] [address] Grace Abdul WBC 6.1 103/ul Normal 4.0-11.0 [facility] Comment on above: Performed By: #### B MP #### [facility] [address] [address] [address] Grace Abdul CULTURE URINEon 11-16-2021 CULTURE URINE Culture Observations : LIGHT GROWTH OF MIXED GENITAL ALANIS. NO POTENTIAL PATHOGENS SEEN. Normal [facility] Comment on above: Performed By: #### U RCX ####[facility] [address] [address]Dr. Grace Abdul ER URINE PROFILEon Bilirubin Ql (U) Negative Normal NEGATIVE [facility] Comment on above: Performed By: #### C VDTBH #### [facility] [address] [place] [address] Dr. Grace Abdul Clarity (U) CLEAR Normal CLEAR [facility] Comment on above: Performed By: #### C VDTBH #### [facility] [address] [address] [address] Grace Abdul Color (U) LT. YELLOW Normal YELLOW [facility] Comment on above: Performed By: #### C VDTBH #### [facility] [address] [place] [address] Dr. Grace Abdul ERUAHD A micrscopic examination will be performed if indicated. Normal [facility] Comment on above: Performed By: #### C VDTBH #### [facility] [address] [address] [address] Grace Abdul Glucose Ql (U) Negative Normal NEGATIVE [facility] Comment on above: Performed By: #### C VDTBH #### [facility] [address] [place] [address] Dr. Grace Abdul Hemoglobin Ql (U) SMALL Abnormal NEGATIVE [facility] Comment on above: Performed By: #### C VDTBH #### [facility] [address] [place] [address] Dr. Grace Abdul Ketones Ql (U) 40 mg/dl Abnormal NEGATIVE [facility] Comment on above: Performed By: #### C VDTBH #### [facility] [address] [place] [address] Dr. Grace Abdul LEUKOCYTES SMALL Abnormal NEGATIVE [facility] Comment on above: Performed By: #### C VDTBH #### [facility] [address] [place] [address] Dr. Grace Abdul Nitrite Ql (U) Negative Normal NEGATIVE [facility] Comment on above: Performed By: #### C VDTBH #### [facility] [address] [place] [address] Dr. Grace Abdul pH (U) 7.0 [pH] Normal 5-9 [facility] Comment on above: Performed By: #### C VDTB #### [facility] [address] [place] [address] Dr. Grace Abdul SPEC GRAVITY 1.010 Normal 1.005-<=1.025 [facility] Comment on above: Performed By: #### C VDTBH #### [facility] [address] [place] [address] Dr. Grace Abdul UA PROTEIN Negative Normal NEGATIVE/ TRACE [facility] Comment on above: Performed By: #### C VDTBH #### [facility] [address] [place] [address] Dr. Grace Abdul UR MICRO IND INDICATED Normal [facility] Comment on above: Performed By: #### C VDTBH #### [facility] [address] [place] [address] Dr. Grace Abdul Urobilinogen Qn (U) 0.2 {Ashley'U}/dL Normal 0.2 - 1. 0 [facility] Comment on above: Performed By: #### C VDTBH #### [facility] [address] [place] [address] Dr. Grace Abdul MAGNESIUMon 11-16-2021 Magnesium [Mass/Vol] 1.8 mg/dL Normal 1.8-2.4 [facility] Comment on above: Performed By: #### C VDTBH #### [facility] [address] [place] [address] Dr. Grace Abdul PROF CHEM 8 (BAS METB)on Anion gap [Moles/Vol] 12.7 mmol/L Normal [facility] Comment on above: Performed By: #### B MP #### [facility] [address] [place] [address] Dr. Grace Abdul Calcium [Mass/Vol] 8.3 mg/dL Critically low 8.5-10.1 [facility] Comment on above: Performed By: #### B MP #### [facility] [address] [place] [address] Dr. Grace Abdul CO2 [Moles/Vol] 24.4 mmol/L Normal 21.0-32.0 [facility] Comment on above: Performed By: #### B MP #### [facility] [address] [place] [address] Dr. Grace Abdul Creatinine [Mass/Vol] 1.16 mg/dL Critically high 0.55-1.02 [facility] Comment on above: Performed By: #### B MP #### [facility] [address] [place] [address] Dr. Grace Abdul EGFR-AF ROMANIAN 54 mL/min/1.73m2 Critically low >=60 [facility] Comment on above: Performed By: #### B MP #### [facility] [address] [place] [address] Dr. Grace Abdul EGFR-NON AF ROMANIAN 45 mL/min/1.73m2 Critically low >=60 [facility] Comment on above: Performed By: #### B MP #### [facility] [address] [place] [address] Dr. Grace Abdul Glucose [Mass/Vol] 116 mg/dL Critically high 74-106 [facility] Comment on above: Performed By: #### B MP #### [facility] [address] [address] [address] Grace Abdul Urea nitrogen [Mass/Vol] 20.0 mg/dL Critically high 7.0-18.0 [facility] Comment on above: Performed By: #### B MP #### [facility] [address] [address] [address] Grace Abdul Urea nitrogen/Creatinine [Mass ratio] 17.2 mg/mg Normal [facility] Comment on above: Performed By: #### B MP #### [facility] [address] [address] [address] Grace Abdul Anion gap [Moles/Vol] 10.0 mmol/L Normal [facility] Comment on above: Performed By: #### B MP #### [facility] [address] [address] [address] Grace Abdul Calcium [Mass/Vol] 8.8 mg/dL Normal 8.5-10.1 [facility] Comment on above: Performed By: #### B MP #### [facility] [address] [address] [address] Grace Abdul Chloride [Moles/Vol] 96 mmol/L Critically low 98-107 [facility] Comment on above: Performed By: #### B MP #### [facility] [address] [address] [address] Grace Abdul CO2 [Moles/Vol] 26.1 mmol/L Normal 21.0-32.0 [facility] Comment on above: Performed By: #### B MP #### [facility] [address] [address] [address] Grace Abdul Creatinine [Mass/Vol] 1.11 mg/dL Critically high 0.55-1.02 [facility] Comment on above: Performed By: #### B MP #### [facility] [address] [address] [address] Grace Abdul EGFR-AF ROMANIAN 57 mL/min/1.73m2 Critically low >=60 [facility] Comment on above: Performed By: #### B MP #### [facility] [address] [address] [address] Grace Abdul EGFR-NON AF ROMANIAN 47 mL/min/1.73m2 Critically low >=60 [facility] Comment on above: Performed By: #### B MP #### [facility] [address] [address] [address] Grace Abdul Glucose [Mass/Vol] 94 mg/dL Normal 74-106 [facility] Comment on above: Performed By: #### B MP #### [facility] [address] [address] [address] Grace Abdul Potassium [Moles/Vol] 3.1 mmol/L Critically low 3.5-5.1 [facility] Comment on above: Performed By: #### B MP #### [facility] [address] [address] [address] Grace Abdul Performed By: #### C VDTBH #### [facility] [address] [address] [address] Grace Abdul Sodium [Moles/Vol] 129 mmol/L Critically low 136-145 [facility] Comment on above: Performed By: #### B MP #### [facility] [address] [address] [address] Grace Abdul Urea nitrogen [Mass/Vol] 16.0 mg/dL Normal 7.0-18.0 [facility] Comment on above: Performed By: #### B MP #### [facility] [address] [address] [address] Grace Abdul Urea nitrogen/Creatinine [Mass ratio] 14.4 mg/mg Normal [facility] Comment on above: Performed By: #### B MP #### [facility] [address] [address] [address] Grace Abdul Anion gap [Moles/Vol] 12.6 mmol/L Normal [facility] Comment on above: Performed By: #### C VDTBH #### [facility] [address] [address] [address] Grace Abdul Calcium [Mass/Vol] 8.6 mg/dL Normal 8.5-10.1 [facility] Comment on above: Performed By: #### C VDTBH #### [facility] [address] [place] [address] Dr. Grace Abdul Chloride [Moles/Vol] 95 mmol/L Critically low 98-107 [facility] Comment on above: Performed By: #### B MP #### [facility] [address] [place] [address] Dr. Grace Abdul Performed By: #### C VDTBH #### [facility] [address] [place] [address] Dr. Grace Abdul CO2 [Moles/Vol] 22.5 mmol/L Normal 21.0-32.0 [facility] Comment on above: Performed By: #### C VDTBH #### [facility] [address] [place] [address] Dr. Grace Abdul Creatinine [Mass/Vol] 0.95 mg/dL Normal 0.55-1.02 [facility] Comment on above: Performed By: #### C VDTBH #### [facility] [address] [place] [address] Dr. Grace Abdul EGFR-AF ROMANIAN >60 Normal >=60 [facility] Comment on above: Performed By: #### C VDTBH #### [facility] [address] [place] [address] Dr. Grace Abdul EGFR-NON AF ROMANIAN 56 mL/min/1.73m2 Critically low >=60 [facility] Comment on above: Performed By: #### C VDTBH #### [facility] [address] [place] [address] Dr. Grace Abdul Glucose [Mass/Vol] 92 mg/dL Normal 74-106 [facility] Comment on above: Performed By: #### C VDTBH #### [facility] [address] [place] [address] Dr. Grace Abdul Sodium [Moles/Vol] 127 mmol/L Critically low 136-145 Th [facility] Comment on above: Performed By: #### C VDTBH #### [facility] [address] [place] [address] Dr. Grace Abdul Urea nitrogen [Mass/Vol] 18.0 mg/dL Normal 7.0-18.0 [facility] Comment on above: Performed By: #### C VDTBH #### [facility] [address] [place] [address] Dr. Grace Abdul Urea nitrogen/Creatinine [Mass ratio] 18.9 mg/mg Normal [facility] Comment on above: Performed By: #### C VDTBH #### [facility] [address] [place] [address] Dr. Grace Abdul URINE MICROSCOPIC ONLYon BACTERIA TRACE Abnormal NONE SEEN [facility] Comment on above: Performed By: #### C VDTBH #### [facility] [address] [place] [address] Dr. Grace Abdul Bacteria identified Cx Nom (U) INDICATED Normal [facility] Comment on above: Performed By: #### C VDTBH #### [facility] [address] [place] [address] Dr. Grace Abdul CAST NONE SEEN Normal NONE SEEN [facility] Comment on above: Performed By: #### C VDTBH #### [facility] [address] [place] [address] Dr. Grace Abdul Crystals LM Nom (Urine sed) NONE SEEN Normal NONE SEEN [facility] Comment on above: Performed By: #### C VDTBH #### [facility] [address] [place] [address] Dr. Grace Abdul Epithelial cells LM Ql (Urine sed) FEW Abnormal NONE SEEN /RARE [facility] Comment on above: Performed By: #### C VDTBH #### [facility] [address] [place] [address] Dr. Grace Abdul MUCOUS NONE SEEN Normal NONE SEEN [facility] Comment on above: Performed By: #### C VDTBH #### [facility] [address] [place] [address] Dr. Grace Abdul RBC 2-5 Abnormal 0-2 [facility] Comment on above: Performed By: #### C VDTBH #### [facility] [address] [place] [address] Dr. Grace Abdul WBC 5-10 Abnormal NONE SEEN [facility] Comment on above: Performed By: #### C VDTBH #### [facility] [address] [place] [address] Dr. Grace Abdul AMYLASEon 11-15-2021 Amylase [Catalytic activity/Vol] 94 U/L Normal 25-115 [facility] Comment on above: Performed By: #### C VDTBH #### [facility] [address] [place] [address] Dr. Grace Abdul BNPon 11-15-2021 Natriuretic peptide B (Bld) [Mass/Vol] 357.0 pg/mL Normal <=1,800.0 [facility] Comment on above: Performed By: #### C VDTBH #### [facility] [address] [place] [address] Dr. Grace Abdul CARDIAC JOVITA ADMITon 022 CK [Catalytic activity/Vol] 66 U/L Normal 26-192 [facility] Comment on above: Performed By: #### C VDTBH #### [facility] [address] [place] [address] Dr. Grace Abdul CK.MB [Mass/Vol] 2.19 ng/mL Normal <=3.60 [facility] Comment on above: Performed By: #### C VDTBH #### [facility] [address] [place] [address] Dr. Grace Abdul HSTROP 9.5 pg/mL Normal 4.0-51.3 [facility] Comment on above: Result Comment: CUT- OFF POINTS HAVE BEEN ESTABLISHED BASED ON THE FOURTH UNIVERSAL DEFINITIONS OF MYOCARDIAL INFARCTION. THE UPPER REFERENCE LIMIT (URL) OF TROPONIN, DEFINED THE 99TH PERCENTILE OF cTnI DISTRIBUTION IN A REFERENCE POPULATION, HAS BEEN CONFIRMED THE DECISION THRESHOLD FOR [place] DIAGNOSIS. Performed By: #### C VDTBH #### [facility] [address] [place] [address] Dr. Grace Abdul JOHNNA 73 ng/mL Normal 9-82 [facility] Comment on above: Performed By: #### C VDTB #### [facility] [address] [place] [address] Dr. Grace Abdul CBC AUTO DIFFon 11-15-2021 BASO # 0.0 103/ul Normal 0.0-0.1 [facility] Comment on above: Performed By: #### B MP #### [facility] [address] [place] [address] Dr. Grace Abdul Basophils/100 WBC (Bld) 0.1 % Critically low 0.2-2.0 [facility] Comment on above: Performed By: #### B MP #### [facility] [address] [place] [address] Dr. Grace Abdul EO # 0.0 103/ul Normal 0.0-0.7 [facility] Comment on above: Performed By: #### B MP #### [facility] [address] [place] [address] Dr. Grace Abdul Eosinophils/100 WBC (Bld) 0.1 % Critically low 0.9-7.0 [facility] Comment on above: Performed By: #### B MP #### [facility] [address] [place] [address] Dr. Grace Abdul Erythrocyte distribution width (RBC) [Ratio] 11.9 % Normal 11.0-15.0 [facility] Comment on above: Performed By: #### B MP #### [facility] [address] [place] [address] Dr. Grace Abdul Hematocrit (Bld) [Volume fraction] 36.6 % Normal 36.0-48.0 [facility] Comment on above: Performed By: #### B MP #### [facility] [address] [place] [address] Dr. Grace Abdul Hemoglobin (Bld) [Mass/Vol] 13.2 g/dL Normal 12.0-16.0 [facility] Comment on above: Performed By: #### B MP #### [facility] [address] [place], [place] [id number] Dr. Grace Abdul IG # 0.05 10e3/ul Critically high 0.00-0.03 [facility] Comment on above: Performed By: #### B MP #### [facility] [address] [place] [address] Dr. Grace Abdul IG % 0.7 % Critically high 0.0-0.5 [facility] Comment on above: Performed By: #### B MP #### [facility] [address] [place] [address] Dr. Grace Abdul LYMPH # 0.7 103/ul Critically low 1.2-3.8 [facility] Comment on above: Performed By: #### B MP #### [facility] [address] [place] [address] Dr. Grace Abdul Lymphocytes/100 WBC (Bld) 9.8 % Critically low 20.5-60.0 [facility] Comment on above: Performed By: #### B MP #### [facility] [address] [place] [address] Dr. Grace Abdul MANUAL DIFF REQ NO Normal [facility] Comment on above: Performed By: #### B MP #### [facility] [address] [place] [address] Dr. Grace Abdul MCH (RBC) [Entitic mass] 31.5 pg Normal 26.7-34.0 [facility] Comment on above: Performed By: #### B MP #### [facility] [address] [place] [address] Dr. Grace Abdul MCHC (RBC) [Mass/Vol] 36.1 g/dL Critically high 29.9-35.2 [facility] Comment on above: Performed By: #### B MP #### [facility] [address] [place] [address] Dr. Grace Abdul MCV (RBC) [Entitic vol] 87.4 fL Normal 81.0-99.0 [facility] Comment on above: Performed By: #### B MP #### [facility] [address] [place] [address] Dr. Grace Abdul MONO # 0.9 103/ul Critically high 0.3-0.8 [facility] Comment on above: Performed By: #### B MP #### [facility] [address] [address] [address] Grace Abdul Monocytes/100 WBC (Bld) 12.4 % Critically high 1.7-12.0 [facility] Comment on above: Performed By: #### B MP #### [facility] [address] [address] [address] Grace Abdul NEUT # 5.8 103/ul Normal 1.4-6.5 [facility] Comment on above: Performed By: #### B MP #### [facility] [address] [place] [address] Dr. Grace Abdul Neutrophils/100 WBC (Bld) 76.9 % Critically high 43.0-75.0 [facility] Comment on above: Performed By: #### B MP #### [facility] [address] [place] [address] Dr. Grace Abdul Platelet mean volume (Bld) [Entitic vol] 9.0 fL Critically low 9.5-13.5 [facility] Comment on above: Performed By: #### B MP #### [facility] [address] [place] [address] Dr. Grace Abdul PLT 361 103/ul Normal 150-450 [facility] Comment on above: Performed By: #### B MP #### [facility] [address] [address] [address] Grace Abdul RBC 4.19 106/ul Critically low 4.20-5.40 [facility] Comment on above: Performed By: #### B MP #### [facility] [address] [place] [address] Dr. Grace Abdul WBC 7.6 103/ul Normal 4.0-11.0 [facility] Comment on above: Performed By: #### B MP #### [facility] [address] [place] [address] Dr. Grace Abdul [facility]-23 SARS-CoV-2 (COVID-19) RNA LUISITO+probe Ql [...] for this test is supported by the [place] of Health and Human Service's declaration that [...] VDTBH #### [facility] [address] [place] [address] Dr. Grace Abdul LIPASEon 11-15-2021 Lipase [Catalytic activity/Vol] 178.0 U/L Normal 73.0-393.0 [facility] Comment on above: Performed By: #### C VDTB #### [facility] [address] [place] [address] Dr. Grace Abdul PROF 14(COMP METB)on 022 Albumin [Mass/Vol] 4.1 g/dL Normal 3.4-5.0 [facility] Comment on above: Performed By: #### C VDTBH #### [facility] [address] [place] [address] Dr. Grace Abdul Albumin/Globulin [Mass ratio] 1.2 {ratio} Normal [facility] Comment on above: Performed By: #### C VDTBH #### [facility] [address] [place] [address] Dr. Grace Abdul ALP [Catalytic activity/Vol] 63 U/L Normal 46-116 [facility] Comment on above: Performed By: #### C VDTBH #### [facility] [address] [address] [address] Grace Abdul ALT [Catalytic activity/Vol] 29 U/L Normal 14-59 [facility] Comment on above: Performed By: #### C VDTBH #### [facility] [address] [address] [address] Grace Abdul Anion gap [Moles/Vol] 14.8 mmol/L Normal [facility] Comment on above: Performed By: #### C VDTBH #### [facility] [address] [address] [address] Grace Abdul AST [Catalytic activity/Vol] 25 U/L Normal 15-37 [facility] Comment on above: Performed By: #### C VDTBH #### [facility] [address] [address] [address] Grace Abdul Bilirubin [Mass/Vol] 0.6 mg/dL Normal 0.2-1.0 [facility] Comment on above: Performed By: #### C VDTBH #### [facility] [address] [address] [address] Grace Abdul Calcium [Mass/Vol] 9.4 mg/dL Normal 8.5-10.1 [facility] Comment on above: Performed By: #### C VDTBH #### [facility] [address] [address] [address] Grace Abdul Chloride [Moles/Vol] 83 mmol/L Critically low 98-107 [facility] Comment on above: Performed By: #### C VDTBH #### [facility] [address] [address] [address] Grace Abdul CO2 [Moles/Vol] 24.4 mmol/L Normal 21.0-32.0 [facility] Comment on above: Performed By: #### C VDTBH #### [facility] [address] [address] [address] Grace Abdul Creatinine [Mass/Vol] 1.15 mg/dL Critically high 0.55-1.02 [facility] Comment on above: Performed By: #### C VDTBH #### [facility] [address] [address] [address] Grace Abdul EGFR-AF ROMANIAN 55 mL/min/1.73m2 Critically low >=60 [facility] Comment on above: Performed By: #### C VDTBH #### [facility] [address] [address] [address] Grace Abdul EGFR-NON AF ROMANIAN 45 mL/min/1.73m2 Critically low >=60 [facility] Comment on above: Performed By: #### C VDTBH #### [facility] [address] [address] [address] Grace Abdul Globulin (S) [Mass/Vol] 3.4 g/dL Normal [facility] Comment on above: Performed By: #### C VDTBH #### [facility] [address] [place] [address] Dr. Grace Abdul Glucose [Mass/Vol] 147 mg/dL Critically high 74-106 [facility] Comment on above: Performed By: #### C VDTBH #### [facility] [address] [address] [address] Grace Abdul Potassium [Moles/Vol] 3.2 mmol/L Critically low 3.5-5.1 [facility] Comment on above: Performed By: #### C VDTBH #### [facility] [address] [place] [address] Dr. Grace Abdul Protein [Mass/Vol] 7.5 g/dL Normal 6.4-8.2 [facility] Comment on above: Performed By: #### C VDTBH #### [facility] [address] [place] [address] Dr. Grace Abdul Urea nitrogen/Creatinine [Mass ratio] 21.7 mg/mg Normal [facility] Comment on above: Performed By: #### C VDTBH #### [facility] [address] [address] [address] Grace Abdul PROF CHEM 8 (BAS METB)on Anion gap [Moles/Vol] 13.6 mmol/L Normal [facility] Comment on above: Performed By: #### C VDTBH #### [facility] [address] [place] [address] Dr. Grace Abdul Calcium [Mass/Vol] 8.8 mg/dL Normal 8.5-10.1 [facility] Comment on above: Performed By: #### C VDTBH #### [facility] [address] [address] [address] Grace Abdul Chloride [Moles/Vol] 88 mmol/L Critically low 98-107 [facility] Comment on above: Performed By: #### C VDTBH #### [facility] [address] [place] [address] Dr. Grace Abdul CO2 [Moles/Vol] 21.8 mmol/L Normal 21.0-32.0 [facility] Comment on above: Performed By: #### C VDTBH #### [facility] [address] [place] [address] Dr. Grace Abdul Creatinine [Mass/Vol] 1.11 mg/dL Critically high 0.55-1.02 [facility] Comment on above: Performed By: #### C VDTBH #### [facility] [address] [place] [address] Dr. Grace Abdul EGFR-AF ROMANIAN 57 mL/min/1.73m2 Critically low >=60 [facility] Comment on above: Performed By: #### C VDTBH #### [facility] [address] [place] [address] Dr. Grace Abdul EGFR-NON AF ROMANIAN 47 mL/min/1.73m2 Critically low >=60 [facility] Comment on above: Performed By: #### C VDTBH #### [facility] [address] [place] [address] Dr. Grace Abdul Glucose [Mass/Vol] 132 mg/dL Critically high 74-106 T [facility] Comment on above: Performed By: #### C VDTBH #### [facility] [address] [place] [address] Dr. Grace Abdul Potassium [Moles/Vol] 3.4 mmol/L Critically low 3.5-5.1 [facility] Comment on above: Performed By: #### C VDTBH #### [facility] [address] [place] [address] Dr. Grace Abdul Sodium [Moles/Vol] 120 mmol/L Critically low 136-145 Th e [facility] Comment on above: Result Comment: Test Repeated. Critical Value Verified Performed By: #### C VDTBH #### [facility] [address] [place] [address] Dr. Grace Abdul Urea nitrogen [Mass/Vol] 25.0 mg/dL Critically high 7.0-18.0 [facility] Comment on above: Performed By: #### C VDTBH #### [facility] [address] [place] [address] Dr. Grace Abdul Urea nitrogen/Creatinine [Mass ratio] 22.5 mg/mg Normal [facility] Comment on above: Performed By: #### C VDTBH #### [facility] [address] [place] [address] Dr. Grace Abdul PROTIMEon 11-15-2021 INR Coag (PPP) [Relative time] 0.94 {INR} Normal [facility] Comment on above: Performed By: #### C VDTBH #### [facility] [address] [place] [address] Dr. Grace Abdul INR GUIDELINES SEE BELOW Normal [facility] Comment on above: Result Comment: DURAN RED INR: 2.0 - 3.0 CONDITIONS NOT LISTED BELOW 2.5 - 3.5 FOR PROSTHETIC HEART VALVE REPLACEMENT 2.5 - 3.5 RECURRENT THROMBOSIS Performed By: #### C VDTBH #### [facility] [address] [place] [address] Dr. Grace Abdul PT Coag (PPP) [Time] 10.2 s Normal 9.0-11.6 [facility] Comment on above: Performed By: #### C VDTBH #### [facility] [address] [place] [address] Dr. Grace Abdul XR ABD FLAT UP_PA [...] B (Bld) [Mass/Vol] 546.0 pg/mL Normal <=1,800.0 [facility] Comment on above: Performed By: #### C MP, TSH, HSTROPN, BNP ####[facility] [id number] [address]Dr. Grace Abdul CBC AUTO DIFFon 11-11-2021 BASO # 0.0 103/ul Normal 0.0-0.1 [facility] Comment on above: Performed By: #### C BC #### [facility] [address] [address] [address] Grace Abdul Basophils/100 WBC (Bld) 0.3 % Normal 0.2-2.0 [facility] Comment on above: Performed By: #### C BC #### [facility] [address] [address] [address] Grace Abdul EO # 0.0 103/ul Normal 0.0-0.7 [facility] Comment on above: Performed By: #### C BC #### [facility] [address] [address] [address] Grace Abdul Eosinophils/100 WBC (Bld) 0.5 % Critically low 0.9-7.0 [facility] Comment on above: Performed By: #### C BC #### [facility] [address] [place] [address] Dr. Grace Abdul Erythrocyte distribution width (RBC) [Ratio] 12.9 % Normal 11.0-15.0 [facility] Comment on above: Performed By: #### C BC #### [facility] [address] [place] [address] Dr. Grace Abdul Hematocrit (Bld) [Volume fraction] 36.1 % Normal 36.0-48.0 [facility] Comment on above: Performed By: #### C BC #### [facility] [address] [place] [address] Dr. Grace Abdul Hemoglobin (Bld) [Mass/Vol] 12.3 g/dL Normal 12.0-16.0 [facility] Comment on above: Performed By: #### C BC #### [facility] [address] [place] [address] Dr. Grace Abdul IG # 0.01 10e3/ul Normal 0.00-0.03 [facility] Comment on above: Performed By: #### C BC #### [facility] [address] [place] [address] Dr. Grace Abdul IG % 0.3 % Normal 0.0-0.5 [facility] Comment on above: Performed By: #### C BC #### [facility] [address] [place] [address] Dr. Grace Abdul LYMPH # 0.6 103/ul Critically low 1.2-3.8 [facility] Comment on above: Performed By: #### C BC #### [facility] [address] [place] [address] Dr. Grace Abdul Lymphocytes/100 WBC (Bld) 14.8 % Critically low 20.5-60.0 [facility] Comment on above: Performed By: #### C BC #### [facility] [address] [place] [address] Dr. Grace Abdul MANUAL DIFF REQ NO Normal [facility] Comment on above: Performed By: #### C BC #### [facility] [address] [place] [address] Dr. Grace Abdul MCH (RBC) [Entitic mass] 31.5 pg Normal 26.7-34.0 [facility] Comment on above: Performed By: #### C BC #### [facility] [address] [place] [address] Dr. Grace Abdul MCHC (RBC) [Mass/Vol] 34.1 g/dL Normal 29.9-35.2 [facility] Comment on above: Performed By: #### C BC #### [facility] [address] [place] [address] Dr. Grace Abdul MCV (RBC) [Entitic vol] 92.6 fL Normal 81.0-99.0 [facility] Comment on above: Performed By: #### C BC #### [facility] [address] [place] [address] Dr. Grace Abdul MONO # 0.5 103/ul Normal 0.3-0.8 [facility] Comment on above: Performed By: #### C BC #### [facility] [address] [place] [address] Dr. Grace Abdul Monocytes/100 WBC (Bld) 13.5 % Critically high 1.7-12.0 [facility] Comment on above: Performed By: #### C BC #### [facility] [address] [place] [address] Dr. Grace Abdul NEUT # 2.7 103/ul Normal 1.4-6.5 [facility] Comment on above: Performed By: #### C BC #### [facility] [address] [place] [address] Dr. Grace Abdul Neutrophils/100 WBC (Bld) 70.6 % Normal 43.0-75.0 [facility] Comment on above: Performed By: #### C BC #### [facility] [address] [place] [address] Dr. Grace Abdul Platelet mean volume (Bld) [Entitic vol] 9.2 fL Critically low 9.5-13.5 [facility] Comment on above: Performed By: #### C BC #### [facility] [address] [place] [address] Dr. Grace Abdul PLT 279 103/ul Normal 150-450 [facility] Comment on above: Performed By: #### C BC #### [facility] [address] [address] [address] Grace Abdul RBC 3.90 106/ul Critically low 4.20-5.40 [facility] Comment on above: Performed By: #### C BC #### [facility] [address] [address] [address] Grace Abdul WBC 3.9 103/ul Critically low 4.0-11.0 [facility] Comment on above: Performed By: #### C BC #### [facility] [address] [place] [address] Dr. Grace Abdul PROF 14(COMP METB)on 022 Albumin [Mass/Vol] 3.3 g/dL Critically low 3.4-5.0 [facility] Comment on above: Performed By: #### C MP, TSH, HSTROPN, BNP #### [facility] [address] [place] [address] Dr. Grace Abdul Albumin/Globulin [Mass ratio] 1.2 {ratio} [facility] Comment on above: Performed By: #### C MP, TSH, HSTROPN, BNP #### [facility] [address] [place] [address] Dr. Grace Abdul ALP [Catalytic activity/Vol] 60 U/L Normal 46-116 [facility] Comment on above: Performed By: #### C MP, TSH, HSTROPN, BNP #### [facility] [address] [place] [address] Dr. Grace Abdul ALT [Catalytic activity/Vol] 26 U/L Normal 14-59 [facility] Comment on above: Performed By: #### C MP, TSH, HSTROPN, BNP #### [facility] [address] [address] [address] Grace Abdul Anion gap [Moles/Vol] 14.8 mmol/L Normal [facility] Comment on above: Performed By: #### C MP, TSH, HSTROPN, BNP #### [facility] [address] [address] [address] Grace Abdul AST [Catalytic activity/Vol] 20 U/L Normal 15-37 [facility] Comment on above: Performed By: #### C MP, TSH, HSTROPN, BNP #### [facility] [address] [place] [address] Dr. Grace Abdul Bilirubin [Mass/Vol] 0.3 mg/dL Normal 0.2-1.0 [facility] Comment on above: Performed By: #### C MP, TSH, HSTROPN, BNP #### [facility] [address] [place] [address] Dr. Grace Abdul Calcium [Mass/Vol] 8.2 mg/dL Critically low 8.5-10.1 [facility] Comment on above: Performed By: #### C MP, TSH, HSTROPN, BNP #### [facility] [address] [place] [address] Dr. Grace Abdul Chloride [Moles/Vol] 100 mmol/L Normal 98-107 [facility] Comment on above: Performed By: #### C MP, TSH, HSTROPN, BNP #### [facility] [address] [place] [address] Dr. Grace Abdul CO2 [Moles/Vol] 23.8 mmol/L Normal 21.0-32.0 [facility] Comment on above: Performed By: #### C MP, TSH, HSTROPN, BNP #### [facility] [address] [place] [address] Dr. Grace Abdul Creatinine [Mass/Vol] 1.27 mg/dL Critically high 0.55-1.02 [facility] Comment on above: Performed By: #### C MP, TSH, HSTROPN, BNP #### [facility] [address] [place] [address] Dr. Grace Abdul EGFR-AF ROMANIAN 49 mL/min/1.73m2 Critically low >=60 [facility] Comment on above: Performed By: #### C MP, TSH, HSTROPN, BNP #### [facility] [address] [place] [address] Dr. Grace Abdul EGFR-NON AF ROMANIAN 40 mL/min/1.73m2 Critically low >=60 [facility] Comment on above: Performed By: #### C MP, TSH, HSTROPN, BNP #### [facility] [address] [place] [address] Dr. Grace Abdul Globulin (S) [Mass/Vol] 2.7 g/dL Normal [facility] Comment on above: Performed By: #### C MP, TSH, HSTROPN, BNP #### [facility] [address] [place] [address] Dr. Grace Abdul Glucose [Mass/Vol] 116 mg/dL Critically high 74-106 T [facility] Comment on above: Performed By: #### C MP, TSH, HSTROPN, BNP #### [facility] [address] [place] [address] Dr. Grace Abdul Potassium [Moles/Vol] 3.6 mmol/L Normal 3.5-5.1 [facility] Comment on above: Performed By: #### C MP, TSH, HSTROPN, BNP #### [facility] [address] [place] [address] Dr. Grace Abdul Protein [Mass/Vol] 6.0 g/dL Critically low 6.4-8.2 Th [facility] Comment on above: Performed By: #### C MP, TSH, HSTROPN, BNP #### [facility] [address] [place] [address] Dr. Grace Abdul Sodium [Moles/Vol] 135 mmol/L Critically low 136-145 Th [facility] Comment on above: Performed By: #### C MP, TSH, HSTROPN, BNP #### [facility] [address] [place] [address] Dr. Grace Abdul Urea nitrogen [Mass/Vol] 25.0 mg/dL Critically high 7.0-18.0 [facility] Comment on above: Performed By: #### C MP, TSH, HSTROPN, BNP #### [facility] [address] [place] [address] Dr. Grace Abdul Urea nitrogen/Creatinine [Mass ratio] 19.7 mg/mg Normal [facility] Comment on above: Performed By: #### C MP, TSH, HSTROPN, BNP #### [facility] [address] [place] [address] Dr. Grace Abdul PROTIMEon 11-11-2021 INR Coag (PPP) [Relative time] 0.95 {INR} Normal [facility] Comment on above: Performed By: #### B MP #### [facility] [address] [place] [address] Dr. Grace Abdul INR GUIDELINES SEE BELOW Normal [facility] Comment on above: Result Comment: DURAN RED INR: 2.0 - 3.0 CONDITIONS NOT LISTED BELOW 2.5 - 3.5 FOR PROSTHETIC HEART VALVE REPLACEMENT 2.5 - 3.5 RECURRENT THROMBOSIS Performed By: #### B MP #### [facility] [address] [place] [address] Dr. Grace Abdul PT Coag (PPP) [Time] 10.3 s Normal 9.0-11.6 [facility] Comment on above: Performed By: #### B MP #### [facility] [address] [place] [address] Dr. Grace Abdul PTTon 11-11-2021 aPTT Coag (Bld) [Time] 21.3 s Critically low 22.3-36.2 [facility] Comment on above: Performed By: #### B MP #### [facility] [address] [place] [address] Dr. Grace Abdul TROPONIN, HIGH SENSITIVITYon 11-11-2021 HSTROP 6.5 pg/mL Normal 4.0-51.3 [facility] Comment on above: Result Comment: CUT- OFF POINTS HAVE BEEN ESTABLISHED BASED ON THE FOURTH UNIVERSAL DEFINITIONS OF MYOCARDIAL INFARCTION. THE UPPER REFERENCE LIMIT (URL) OF TROPONIN, DEFINED THE 99TH PERCENTILE OF cTnI DISTRIBUTION IN A REFERENCE POPULATION, HAS BEEN CONFIRMED THE DECISION THRESHOLD FOR [place] DIAGNOSIS. Performed By: #### C MP, TSH, HSTROPN, BNP #### [facility] [address] [place], [place] [address] Dr. Grace Abdul TSHon 11-11-2021 TSH 2.140 uIU/mL Normal 0.358-3.740 [facility] Comment on above: Performed By: #### C MP, TSH, HSTROPN, BNP ####[facility] [id number] [place], [place] [address]CoDr. Grace Abdul XR CHEST 1 Von 11-11-2021 [...] #### [facility] [address] [address] [address] Grace Abdul CK.MB [Mass/Vol] 1.92 ng/mL Normal <=3.60 [facility] Comment on above: Performed By: #### C VDTBH #### [facility] [address] [address] [address] Grace Abdul HSTROP 5.7 pg/mL Normal 4.0-51.3 [facility] Comment on above: Result Comment: CUT- OFF POINTS HAVE BEEN ESTABLISHED BASED ON THE FOURTH UNIVERSAL DEFINITIONS OF MYOCARDIAL INFARCTION. THE UPPER REFERENCE LIMIT (URL) OF TROPONIN, DEFINED THE 99TH PERCENTILE OF cTnI DISTRIBUTION IN A REFERENCE POPULATION, HAS BEEN CONFIRMED THE DECISION THRESHOLD FOR TN DIAGNOSIS. Performed By: #### C VDTBH #### [facility] [address] [address] [address] Grace Abdul JOHNNA 86 ng/mL Critically high 9-82 [facility] Comment on above: Performed By: #### C VDTBH #### [facility] [address] [place] [address] Dr. Grace Abdul CBC AUTO DIFFon 09-13-2021 BASO # 0.0 103/ul Normal 0.0-0.1 [facility] Comment on above: Performed By: #### C VDTBH #### [facility] [address] [place] [address] Dr. Grace Abdul Basophils/100 WBC (Bld) 0.5 % Normal 0.2-2.0 [facility] Comment on above: Performed By: #### C VDTBH #### [facility] [address] [place] [address] Dr. Grace Abdul EO # 0.0 103/ul Normal 0.0-0.7 [facility] Comment on above: Performed By: #### C VDTBH #### [facility] [address] [place] [address] Dr. Grace Abdul Eosinophils/100 WBC (Bld) 0.7 % Critically low 0.9-7.0 [facility] Comment on above: Performed By: #### C VDTBH #### [facility] [address] [place] [address] Dr. Grace Abdul Erythrocyte distribution width (RBC) [Ratio] 13.2 % Normal 11.0-15.0 [facility] Comment on above: Performed By: #### C VDTBH #### [facility] [address] [place] [address] Dr. Grace Abdul Hematocrit (Bld) [Volume fraction] 34.8 % Critically low 36.0-48.0 [facility] Comment on above: Performed By: #### C VDTBH #### [facility] [address] [place] [address] Dr. Grace Abdul Hemoglobin (Bld) [Mass/Vol] 11.9 g/dL Critically low 12.0-16.0 [facility] Comment on above: Performed By: #### C VDTBH #### [facility] [address] [place] [address] Dr. Grace Abdul IG # 0.01 10e3/ul Normal 0.00-0.03 [facility] Comment on above: Performed By: #### C VDTBH #### [facility] [address] [place] [address] Dr. Grace Abdul IG % 0.2 % Normal 0.0-0.5 [facility] Comment on above: Performed By: #### C VDTBH #### [facility] [address] [place] [address] Dr. Grace Abdul LYMPH # 0.6 103/ul Critically low 1.2-3.8 [facility] Comment on above: Performed By: #### C VDTBH #### [facility] [address] [place] [address] Dr. Grace Abdul Lymphocytes/100 WBC (Bld) 14.2 % Critically low 20.5-60.0 [facility] Comment on above: Performed By: #### C VDTBH #### [facility] [address] [place] [address] Dr. Grace Abdul MANUAL DIFF REQ NO Normal [facility] Comment on above: Performed By: #### C VDTBH #### [facility] [address] [place] [address] Dr. Grace Abdul MCH (RBC) [Entitic mass] 31.5 pg Normal 26.7-34.0 [facility] Comment on above: Performed By: #### C VDTBH #### [facility] [address] [place] [address] Dr. Grace Abdul MCHC (RBC) [Mass/Vol] 34.2 g/dL Normal 29.9-35.2 [facility] Comment on above: Performed By: #### C VDTBH #### [facility] [address] [place] [address] Dr. Grace Abdul MCV (RBC) [Entitic vol] 92.1 fL Normal 81.0-99.0 [facility] Comment on above: Performed By: #### C VDTBH #### [facility] [address] [address] [address] Grace Abdul MONO # 0.7 103/ul Normal 0.3-0.8 [facility] Comment on above: Performed By: #### C VDTBH #### [facility] [address] [place] [address] Dr. Grace Abdul Monocytes/100 WBC (Bld) 15.6 % Critically high 1.7-12.0 [facility] Comment on above: Performed By: #### C VDTBH #### [facility] [address] [place] [address] Dr. Grace Abdul NEUT # 3.0 103/ul Normal 1.4-6.5 [facility] Comment on above: Performed By: #### C VDTBH #### [facility] [address] [place] [address] Dr. Grace Abdul Neutrophils/100 WBC (Bld) 68.8 % Normal 43.0-75.0 [facility] Comment on above: Performed By: #### C VDTBH #### [facility] [address] [place] [address] Dr. Grace Abdul Platelet mean volume (Bld) [Entitic vol] 9.5 fL Normal 9.5-13.5 [facility] Comment on above: Performed By: #### C VDTBH #### [facility] [address] [place] [address] Dr. Grace Abdul PLT 303 103/ul Normal 150-450 [facility] Comment on above: Performed By: #### C VDTBH #### [facility] [address] [place] [address] Dr. Grace Abdul RBC 3.78 106/ul Critically low 4.20-5.40 [facility] Comment on above: Performed By: #### C VDTBH #### [facility] [address] [place] [address] Dr. Grace Abdul WBC 4.4 103/ul Normal 4.0-11.0 [facility] Comment on above: Performed By: #### C VDTB #### [facility] [address] [address] [address] HEAD WO CONon [...] [facility]22 SARS-CoV-2 (COVID-19) RNA LUISITO+probe Ql (Unsp [...] for this test is supported by the Aerot[employer] Specialist of Health and Human Service's declaration that [...] used). Performed By: #### C VDTB #### [facility] [address] [place] [address] Dr. Grace Abdul ER URINE PROFILEon 2 Bilirubin Ql (U) Negative Normal NEGATIVE [facility] Comment on above: Performed By: #### B MP #### [facility] [address] [place] [address] Dr. Grace Abdul Clarity (U) CLEAR Normal CLEAR [facility] Comment on above: Performed By: #### B MP #### [facility] [address] [place] [address] Dr. Grace Abdul Color (U) LT. YELLOW Normal YELLOW [facility] Comment on above: Performed By: #### B MP #### [facility] [address] [place] [address] Dr. Grace HIGGINS A micrscopic examination will be performed if indicated. Normal [facility] Comment on above: Performed By: #### B MP #### [facility] [address] [place] [address] Dr. Grace Abdul Glucose Ql (U) Negative Normal NEGATIVE [facility] Comment on above: Performed By: #### B MP #### [facility] [address] [place] [address] Dr. Grace Abdul Hemoglobin Ql (U) Negative Normal NEGATIVE [facility] Comment on above: Performed By: #### B MP #### [facility] [address] [place] [address] Dr. Grace Abdul Ketones Ql (U) TRACE Abnormal NEGATIVE [facility] Comment on above: Performed By: #### B MP #### [facility] [address] [place] [address] Dr. Grace Abdul LEUKOCYTES TRACE Abnormal NEGATIVE [facility] Comment on above: Performed By: #### B MP #### [facility] [address] [place] [address] Dr. Grace Abdul Nitrite Ql (U) Negative Normal NEGATIVE [facility] Comment on above: Performed By: #### B MP #### [facility] [address] [place] [address] Dr. Grace Abdul pH (U) 8.0 [pH] Normal 5-9 [facility] Comment on above: Performed By: #### B MP #### [facility] [address] [place] [address] Dr. Grace Abdul SPEC GRAVITY 1.015 Normal 1.005-<=1.025 [facility] Comment on above: Performed By: #### B MP #### [facility] [address] [place] [address] Dr. Grace Abdul UA PROTEIN Negative Normal NEGATIVE/ TRACE [facility] Comment on above: Performed By: #### B MP #### [facility] [address] [place] [address] Dr. Grace Abdul UR MICRO IND INDICATED Normal [facility] Comment on above: Performed By: #### B MP #### [facility] [address] [place] [address] Dr. Grace Abdul Urobilinogen Qn (U) 0.2 {Ashley'U}/dL Normal 0.2 - 1. 0 [facility] Comment on above: Performed By: #### B MP #### [facility] [address] [place] [address] Dr. Grace Abdul PROF 14(COMP METB)on 022 Albumin [Mass/Vol] 3.8 g/dL Normal 3.4-5.0 [facility] Comment on above: Performed By: #### C VDTBH #### [facility] [address] [place] [address] Dr. Grace Abdul Albumin/Globulin [Mass ratio] 1.4 {ratio} Normal [facility] Comment on above: Performed By: #### C VDTBH #### [facility] [address] [place] [address] Dr. Grace Abdul ALP [Catalytic activity/Vol] 53 U/L Normal 46-116 [facility] Comment on above: Performed By: #### C VDTBH #### [facility] [address] [place] [address] Dr. Grace Abdul ALT [Catalytic activity/Vol] 20 U/L Normal 14-59 [facility] Comment on above: Performed By: #### C VDTBH #### [facility] [address] [address] [address] Grace Abdul Anion gap [Moles/Vol] 12.0 mmol/L Normal [facility] Comment on above: Performed By: #### C VDTBH #### [facility] [address] [address] [address] Grace Abdul AST [Catalytic activity/Vol] 18 U/L Normal 15-37 [facility] Comment on above: Performed By: #### C VDTBH #### [facility] [address] [address] [address] Grace Abdul Bilirubin [Mass/Vol] 0.4 mg/dL Normal 0.2-1.0 [facility] Comment on above: Performed By: #### C VDTBH #### [facility] [address] [address] [address] Grace Abdul Calcium [Mass/Vol] 9.5 mg/dL Normal 8.5-10.1 [facility] Comment on above: Performed By: #### C VDTBH #### [facility] [address] [address] [address] Grace Abdul Chloride [Moles/Vol] 99 mmol/L Normal 98-107 [facility] Comment on above: Performed By: #### C VDTBH #### [facility] [address] [address] [address] Grace Abdul CO2 [Moles/Vol] 28.1 mmol/L Normal 21.0-32.0 [facility] Comment on above: Performed By: #### C VDTBH #### [facility] [address] [address] [address] Grace Abdul Creatinine [Mass/Vol] 1.25 mg/dL Critically high 0.55-1.02 [facility] Comment on above: Performed By: #### C VDTBH #### [facility] [address] [address] [address] Grace Abdul EGFR-AF ROMANIAN 50 mL/min/1.73m2 Critically low >=60 [facility] Comment on above: Performed By: #### C VDTBH #### [facility] [address] [address] [address] Grace Abdul EGFR-NON AF ROMANIAN 41 mL/min/1.73m2 Critically low >=60 [facility] Comment on above: Performed By: #### C VDTBH #### [facility] [address] [address] [address] Grace Abdul Globulin (S) [Mass/Vol] 2.7 g/dL Normal [facility] Comment on above: Performed By: #### C VDTBH #### [facility] [address] [address] [address] Grace Abdul Glucose [Mass/Vol] 131 mg/dL Critically high 74-106 T [facility] Comment on above: Performed By: #### C VDTBH #### [facility] [address] [address] [address] Grace Abdul Potassium [Moles/Vol] 4.1 mmol/L Normal 3.5-5.1 [facility] Comment on above: Performed By: #### C VDTBH #### [facility] [address] [place] [address] Dr. Grace Abdul Protein [Mass/Vol] 6.5 g/dL Normal 6.4-8.2 [facility] Comment on above: Performed By: #### C VDTBH #### [facility] [address] [place] [address] Dr. Grace Abdul Sodium [Moles/Vol] 135 mmol/L Critically low 136-145 Th [facility] Comment on above: Performed By: #### C VDTBH #### [facility] [address] [address] [address] Grace Abdul Urea nitrogen [Mass/Vol] 33.0 mg/dL Critically high 7.0-18.0 [facility] Comment on above: Performed By: #### C VDTBH #### [facility] [address] [place] [address] Dr. Grace Abdul Urea nitrogen/Creatinine [Mass ratio] 26.4 mg/mg Normal [facility] Comment on above: Performed By: #### C VDTBH #### [facility] [address] [place] [address] Dr. Grace Abdul URINE MICROSCOPIC ONLYon BACTERIA NONE SEEN Normal NONE SEEN [facility] Comment on above: Performed By: #### C BC #### [facility] [address] [place] [address] Dr. Grace Abdul Bacteria identified Cx Nom (U) NOT INDICATED Normal [facility] Comment on above: Performed By: #### C BC #### [facility] [address] [place] [address] Dr. Grace Abdul CAST NONE SEEN Normal NONE SEEN [facility] Comment on above: Performed By: #### C BC #### [facility] [address] [place] [address] Dr. Grace Abdul Crystals LM Nom (Urine sed) NONE SEEN Normal NONE SEEN [facility] Comment on above: Performed By: #### C BC #### [facility] [address] [place] [address] Dr. Grace Abdul Epithelial cells LM Ql (Urine sed) FEW Abnormal NONE SEEN /RARE [facility] Comment on above: Performed By: #### C BC #### [facility] [address] [place] [address] Dr. Grace Abdul MUCOUS NONE SEEN Normal NONE SEEN [facility] Comment on above: Performed By: #### C BC #### [facility] [address] [place] [address] Dr. Grace Abdul RBC 0-2 Normal 0-2 [facility] Comment on above: Performed By: #### C BC #### [facility] [address] [place] [address] Dr. Grace Abdul WBC 0-2 Abnormal NONE SEEN [facility] Comment on above: Performed By: #### C BC #### [facility] [address] [place] [address] Dr. Grace Abdul XR CHEST 1 Von [...] by: KRANTHI CONNORS Date: 2021-09-13 13:19 Normal [facility] CERV SP W/OBLS/FLEX/EXT 6 OR >on 12-12-2020 CERV SP W/OBLS/FLEX/EXT 6 OR > STUDY: CERV SP W/OBLS/FLEX/EXT 6 OR >; 12/12/2020 9:40 am INDICATION: NECK PAIN. COMPARISON: None. ACCESSION NUMBER(S): [id number] ORDERING CLINICIAN: Aiden Younger TECHNIQUE: AP, lateral, [...] findings. Dense left carotid artery calcifications. Normal [facility] Vital Signs Date Time Vital Sign Value Performing Clinician Aimee pollock 12-06-2023 11:32-0400 Body height 147.3 cm Armando Morales DO Work Phone: [facility] 12-06-2023 11:32-0400 Body mass index (BMI) [Ratio] 34.28 kg/m2 Armando Morales DO Work Phone: [facility] 12-06-2023 11:32-0400 Body weight 74.39 kg Armando Morales DO Work Phone: [facility] 12-06-2023 11:32-0400 Diastolic blood pressure 82 mm[Hg] Armando Morales DO Work Phone: [facility] 12-06-2023 11:32-0400 Systolic blood pressure 142 mm[Hg] Armando Morales DO Work Phone: [facility] 09-21-2022 12:51-0400 Diastolic blood pressure 60 mm[Hg] Carolyn Vanegas MD Work Phone: [facility] 09-21-2022 12:51-0400 Heart rate 67 /min Carolyn Vanegas MD Work Phone: [facility] 09-21-2022 12:51-0400 Systolic blood pressure 153 mm[Hg] Carolyn Vanegas MD Work Phone: [facility] 05-14-2022 14:24-0400 Diastolic blood pressure 87 mm[Hg] Marty Dozier DO Work Phone: [facility] 05-14-2022 14:24-0400 Heart rate 72 /min Marty Dozier DO Work Phone: [facility] 05-14-2022 14:24-0400 Systolic blood pressure 158 mm[Hg] Marty Galavizis DO Work Phone: [facility] 05-14-2022 14:22-0400 Body height 152.4 cm Marty Galavizis DO Work Phone: [facility] 05-14-2022 14:22-0400 Body weight 76.39 kg Marty Galavizis DO Work Phone: [facility] 05-14-2022 14:22-0400 SaO2% (BldA) [Mass fraction] 99 % Marty Galavizis DO Work Phone: [facility] Encounters Encounter Date Encounter Type Care Provider Facility Start: 12-06-2023 End: 12-06-2023 Patient encounter procedure Armando Morales DO Work Phone: [facility] Comment on above: Encounter for gyneco logical examination without abnormal finding; Encounter for Papanicolaou smear of vagina; Breast cancer screening by mammogram Start: 12-06-2023 End: 12-06-2023 Patient encounter status Armando Aly Morales DO Work Phone: [facility] Start: 12-06-2023 End: 12-06-2023 ambulatory ARMANDO MORALES Not Available Start: 09-26-2023 End: 09-26-2023 ambulatory Lyn Quiñones MD Facility: [facility] Start: 09-12-2023 End: 09-12-2023 ambulatory Lyn Quiñones MD Facility:[facility] Start: 08-18-2023 End: 08-18-2023 ambulatory Galina Rogers Facility:[facility] Start: 08-08-2023 End: 08-08-2023 ambulatory COLETTE MATOS [...] Start: 09-21-2022 End: 09-21-2022 ambulatory GALINA ROGERS Facility:[facility] Start: 09-21-2022 End: 09-21-2022 Patient encounter [...] Start: 05-14-2022 End: 05-14-2022 ambulatory MARTY DOZIER Facility:[facility] Start: 05-14-2022 End: 05-14-2022 Patient encounter [...] procedure 12/10/2025 11:30 AM EDT Office Visit [facility] [address] [place] [id number] Armando Morales, DO [address] [place], [place] [id number] [facility] Start: 10-23-2023 Influenza vaccination Influenza Vacc ine (#1) [facility] Start: 10-22-2022 Influenza vaccination INFLUENZA (#1) [facility] Start: 04-11-2022 COVID-19 VACCINE (6 - Moderna series) COVID-19 VACCINE (6 - Moderna series) [facility] Start: 02-21-2022 ADVANCE DIRECTIVE DISCUSSION ADVANCE DIRECTIVE DISCUSSION [facility] Start: 02-21-2022 DEPRESSION ASSESSMENT DEPRESSION ASS ESSMENT [facility] Start: 11-12-2017 Pneumococcal Vaccine : 65+ Years (2 of 2 - PPSV23 or PCV20) Pneumococcal Vaccine: 65+ Years (2 of 2 - PPSV23 or PCV20) [facility] Start: 11-12-2017 PNEUMOCOCCAL: 65+ (2 - PPSV23 if available, else PCV20) PNEUMOCOCCAL: 65+ (2 - PPSV23 if available, else PCV20) [facility] Start: 11-12-2017 PNEUMOCOCCAL: 65+ (2 - PPSV23 or PCV20) PNEUMOCOCCAL: 65+ (2 - PPSV23 or PCV20) [facility] Start: 07-22-2017 SHINGRIX VACCINE (2 of 3) SHINGRIX VACCINE (2 of 3) [facility] Start: 04-30-2004 BONE DENSITY BONE DENSITY [facility] Start: 04-30-1984 DIABETES SCREEN DIABETES SCREEN [facility] Start: 04-30-1958 Urine microalbumin profile DTAP,TDAP,TD (1 - Tdap) [facility] IGP,rfxAptima HPV all,16/18,45 IGP,rfxAptima HPV all,16/18,45 Pathology and Cytology Routine Encounter for Papanicolaou smear of vagina Ordered: 12/06/2023 [facility] Work Phone: Comment on above: Ordered: 12/06/2023 Immunizations Immunization Date Immunization Notes Care Provider Armando schwartz 12-09-2021 Moderna Bivalent Gama ster Vaccination Armando Morales DO Work Phone: [facility] 12-02-2021 Influenza, injectabl e, Madin [place] Canine Kidney, preservative free, quadrivalent Marty Dozier DO Work Phone: [facility] 12-02-2021 influenza virus vacc ine, unspecified formulation Armando Morales DO Work Phone: [facility] 11-28-2020 influenza virus vacc ine, unspecified formulation Marty Dozier DO Work Phone: [facility] 11-29-2019 Seasonal trivalent influenza vaccine, adjuvanted, preservative free Marty Dozier DO Work Phone: [facility] 05-27-2017 zoster vaccine, live Marty Dozier DO Work Phone: [facility] 11-12-2016 pneumococcal conjuga te vaccine, 13 valent Marty Dozier DO Work Phone: [facility] Payers Date Payer Category Payer Private Health Insurance [id number] 2004 Medicare [id number] 2004 Unknown 1959 Medicare [id number] 1959 Self-pay 1959 Unknown [id number] 1939 Unknown [id number] 2.16.84 0.1.370239.3.579.2.593 1939 Unknown [id number] 2.16.84 0.1.051846.3.579.2.593 1939 Unknown [id number] 2.16.84 0.1.252181.3.579.2.593 1939 Unknown [id number] 2.16.84 0.1.740753.3.579.2.593 1939 Unknown [id number] 2.16.84 0.1.353679.3.579.2.593 1939 Unknown [id number] 2.16.84 0.1.494122.3.579.2.593 1939 Unknown [id number] 2.16.84 0.1.194194.3.579.2.593 1939 Unknown [id number] 2.16.84 0.1.251896.3.579.2.593 1939 Unknown [id number] 2.16.84 0.1.780688.3.579.2.593 1939 Unknown [id number] 2.16.84 0.1.741898.3.579.2.593 1939 Unknown [id number] 2.16.84 0.1.398754.3.579.2.593 1939 Unknown [id number] 2.16.84 0.1.903694.3.579.2.593 1939 Unknown [id number] 2.16.84 0.1.357254.3.579.2.593 1939 Unknown [id number] 2.16.84 0.1.918400.3.579.2.593 1939 Unknown [id number] 2.16.84 0.1.795028.3.579.2.593 1939 Unknown [id number] 2.16.84 0.1.741876.3.579.2.593 1939 Unknown [id number] 2.16.84 0.1.469268.3.579.2.593 1939 Unknown [id number] 2.16.84 0.1.715406.3.579.2.593 1939 Unknown [id number] 2.16.84 0.1.822236.3.579.2.593 1939 Unknown [id number] 2.16.84 0.1.295019.3.579.2.593 1939 Unknown [id number] 2.16.84 0.1.557116.3.579.2.593 1939 Unknown [id number] 2.16.84 0.1.353332.3.579.2.593 1939 Unknown [id number] 2.16.84 0.1.493309.3.579.2.593 1939 Unknown [id number] 2.16.84 0.1.728620.3.579.2.593 1939 Unknown [id number] 2.16.84 0.1.190524.3.579.2.593 1939 Unknown [id number] 2.16. 840.1.091388.3.579.2.196 1939 Unknown [id number] 2.16. 840.1.694962.3.579.2.196 1939 Unknown [id number] 2.16. 840.1.393150.3.579.2.196 1939 Unknown [id number] 2.16. 840.1.940617.3.579.2.196 1939 Unknown [id number] 2.16. 840.1.116624.3.579.2.196 1939 Unknown [id number] 2.16. 840.1.298208.3.579.2.196 1939 Unknown [id number] 2.16. 840.1.253693.3.579.2.196 1939 Unknown [id number] 2.16. 840.1.023027.3.579.2.196 1939 Unknown [id number] 2.16.84 0.1.314016.3.579.2.1259 1939 Unknown [id number] 2.16.84 0.1.421795.3.579.2.1259 1939 Unknown [id number] 2.16.84 0.1.372240.3.579.2.1259 Social History Date Type Detail Facility Start: 05-14-2022 End: 08-02-2022 Tobacco smoking status NHIS Never smoked tobacco [facility] Start: 05-14-2022 End: 08-02-2022 Tobacco use and exposure Smokeless tobacco non-user [facility] Start: 05-14-2022 End: 12-06-2023 Alcohol intake Lifetime non-drinker (finding) [facility] Start: 1940 Sex Assigned At Not on file C [facility] Start: 09-21-2022 End: 12-06-2023 History of Social function [facility] Start: 09-21-2022 End: 12-06-2023 Tobacco use panel [facility] Adult Depression Scr eening Assessment 2 [facility] How often to you hav e a [...] Obstetrics and Gynecology Alexa Delgado 1940 12/06/23 [id number] Yearly Wellness Exam Chief Complaint Patient presents with Gynecologic Exam Medicare yearly. LMP: PENDING SALE TO [facility] 1972 HRT: None Last pap 12-02-21 neg. Last mammogram 12-05-23 [facility] ordered by PCP. Denies breast or urinary [...] Oil) 1000 MG capsule as directed Orally Tvkaqktxxna-Xwexovyjkzb-CWL (Triple Flex) 500-400-125 MG tablet 1 tablet with meals Orally twice daily for 30 days HYDROcodone-acetaminophen ([place]) 5-325 MG tablet 1 tablet as needed [...] excision of lesion on leg ( benign) [place] CAPSULOTOMY POSTERIOR CAPSULAR RELEASE KNEE 05/15/2013 Yttrium aluminum garnet (YAG) capsulotomies [place] KNEE SCOPE,CLEAN/DRAIN 10/1998 Dr. De Leon [place] LAMNOTMY INCL W/DCMPRSN NRV ROOT 1 INTRSPC CERVC 12/20/2006 L4-5 Hemilaminectomy / Discectomy - Dr. Arshad SALPINGOOPHORECTOMY Left 1981 SKIN SURGERY 12/13/2008 excision neoplasm LT leg TONSILLECTOMY 1957 TOTAL ABDOMINAL HYSTERECTOMY 1973 SUNIL RSO TOTAL KNEE ARTHROPLASTY Right 09/22/2017 Dr. de leon Past Medical History: Diagnosis Date Angina pectoris ([facility]) Angina pectoris ([facility]) 11/2019 hx of hospitalization Melchor's palsy 1960 Breast nodule Cataract 2012 COVID-19 10/2021 hx of hospitalization History of medical problems 1982 MMK LSO HTN (hypertension) ([facility]) Hx of completed stroke hx of stroke at [id number]/ TIA 1985 Kidney disease remission Kidney disease hx of hospitalization Lumbar disc herniation 2006 L4 L5 Miscarriage x3 Pelvic fracture ([facility]) 2018 hx of hospitalization x4 Status post laser cataract surgery of left eye 2014 Stroke ([facility]) 1973 at childbirth TIA (transient [...] costovertebral angle tenderness, no obvious scoliosis/kyphosis. 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 documented in this encounter [facility] 09-21-2022 Note HNO ID: [id number] Author: Carolyn Vanegas MD Service: ? Author [...] Health Percentile 1 (more content not included)... [facility] 09-21-2022 Instructions Carolyn Vanegas MD - [...] at this time. documented in this encounter [facility] 09-21-2022 History of Present illness Narrative SPINE [...] 4 - Moderate documented in this encounter [facility] 08-26-2022 Note HNO ID: [id number] Author: Kassandra Alves PA-C Service: ? Author Type: Physician Fibre Technologist Type: Progress Notes Filed: 08/26/2022 11:52 AM Note Text: Per Triage: Alexa Delgado is a 82 year old female that requests evaluation of spine. Per review, they have symptoms of lower back pain. Numbness/tingling right leg. Difficulty walking. Weakness Request: 1st available Referring provider: Galina Rogers MD Patient out of state: no 2nd opinion: no Prior spine surgery: yes 2006 [facility] Address: [address] [place] [address] CMT: PT Injections Tylenol Hydrocodone Studies (Reports [...] reviewed during the appt Kassandra Alves PA-C [facility] 08-26-2022 History of Present illness Narrative Per Triage: Alexa Delgado is a 82 year old female that requests evaluation of spine. Per review, they have symptoms of lower back pain. Numbness/tingling right leg. Difficulty walking. Weakness Request: 1st available Referring provider: Galina Rogers MD Patient out of state: no 2nd opinion: no Prior spine surgery: yes 2006 [facility] Address: [address] [place] [address] CMT: PT Injections Tylenol Hydrocodone Studies (Reports [...] Health Provider or Pain Management Provider at [facility]? No If answer is YES [...] completed: [facility] Address: [address] [place] [address] MRI/CT/myelogram viewable in Epic: No If not, please provide [phone] to fax in imaging reports for review. [...] Injection [facility] Address: [address] [place] [address] Have you tried any other kinds of [...] of where the surgery was completed: 2006 [facility] Address: [address] [place] [address] Additional Comments documented in this encounter [facility] 08-19-2022 Note HNO ID: [id number] Author: Micheal Bowman Service: ? Author Type: ? Type: Progress Notes Filed: 08/26/2022 11:52 AM Note Text: Patient name: Alexa Delgado Are you being referred by a [facility] Spine Health Provider or Pain Management Provider at [facility]? No If answer is YES [...] completed: [facility] Address: [address] [place] [address] MRI/CT/myelogram viewable in Epic: No If not, please provide [phone] to fax in imaging reports for review. [...] Injection [facility] Address: [address] [place] [address] Have you tried any other kinds of [...] of where the surgery was completed: 2006 [facility] Address: [address] [place] [address] Additional Comments [facility] 07-16-2022 Note PROCEDURE: XR HIP RT [...] authenticated by: HERMES MENDOZA Date: 2022-07-16 11:28 [facility] 05-14-2022 Note HNO ID: [id number] Author: Marty Dozier, DO Service: ? Author Type: Physician Type: Progress Notes Filed: 05/15/2022 10:02 PM Note Text: [facility] [...] Ratio: R>L low back Current Treatment: Medications [place] 5-325 mg BID - helps Diclofenac 75 [...] but still has pain -01/28/22 Noemi Sequeira MARIONETTE PERFORMER: BL Lumbar erector spinae TPI (0.125% Marcaine, [...] ongoing as of 04/17/21 -03/08/21 Noemi Sequeira MARIONETTE PERFORMER: Left rhomboid TPI (0.125% Marcaine, 40 mg [...] today. She has an evaluation at the [facility] tomorrow at the Spine Center. RECOMMENDATIONS: We will see the patient back in the office after she undergoes evaluation there to discuss her treatment plan thereafter. We will see the patient back in the office in approximately four weeks' time or sooner if needed. PMH: Lumbar scoliosis Depression on Negrita (more content not included)... [facility] 05-14-2022 History of Present illness Narrative Images from the original note were not included. [facility] - Medical [...] Ratio: R>L low back Current Treatment: Medications [place] 5-325 mg BID - helps Diclofenac 75 [...] but still has pain -01/28/22 Noemi Sequeira MARIONETTE PERFORMER: BL Lumbar erector spinae TPI (0.125% Marcaine, [...] cooking/cleaning/ADLs - ongoing as of 04/17/21 -03/08/21 Neomi Sequeira MARIONETTE PERFORMER: Left rhomboid TPI (0.125% Marcaine, 40 mg [...] today. She has an evaluation at the [facility] tomorrow at the Sp[facility]. RECOMMENDATIONS: We [...] 04/04/22 CT abd/pelvis with IV contrast, [facility], report: Abdominal wall: Old healed left pelvis [...] TIME: 3:15 PM documented in this encounter [facility] 05-13-2022 Note CONSULTATION CONSULTATION DATE: 05/13/2022 TO: [...] mg at h.s., diclofenac 75 mg b.i.d., [place] 5 mg b.i.d. EXAM: Notable for the [...] today. She has an evaluation at the [facility] tomorrow at the [facility]. RECOMMENDATIONS: We [...] to kidney dysfunction also. The patient takes [place], however, is very controlled and limits it to the point of detriment. Education was done. The patient was instructed to take the [place] to a b.i.d. to t.i.d. basis. The [...] b.i.d. basis. The patient may increase the [place] to 5/325 t.i.d. We will schedule the [...] gave improvement for 24 hours. Medications include [place] 5/325 b.i.d., diclofenac 75 mg b.i.d., citalopram [...] back pain. PLAN: We will refill her [place] 5/325 b.i.d. We will prescribe her Buderer [...] daily which decreases her pain. Medications include [place] 5/325 b.i.d., Flexeril 5 mg b.i.d., diclofenac [...] does consent to. We will refill the [place] 5/325 b.i.d. We will pre-authorize for a [...] Current medications include diclofenac 75 mg b.i.d., [place] 5/325 b.i.d., citalopram, Flexeril and multivitamin regimen. The patient does state that she breaks her [place] in half and the most she takes [...] CONSULTATION DATE: 09/30/2021 This is a very [id number] female accompanied by her returning to the [...] Current medications include diclofenac 50 mg b.i.d., [place] 5/325 b. i.d. and Tylenol. She does [...] at 25 mg q.h.s. Refill for her [place] 5/325 b.i.d. will be sent as well. [...] unspecified scoliosis type [facility] Spinal stenosis, lumbar region with neurogenic claudication- Primary Spondylolisthesis, lumbar region Other idiopathic scoliosis, lumbar region [facility] Diagnosis Obesity, Class I, BMI 30-34.9- [...] By Contac t Referred To Contact [facility] Diagnoses Spinal stenosis, lumbar region with neurogenic claudication Procedures CONSULT TO [facility] ([facility]) OFFICE/OUTPATIENT [facility] 60-74 MINUTES Carolyn Vanegas MD [address] [place] [address] Referral ID Status Reason Start Date Expiration Date Visits Requested Visits Authorized [id number] Pending Review PCP Requested Referral 09/21/2022 09/21/2023 1 1 Additional Source Comments INFORMATION SOURCE (unrecogn ized section and content) DATE CREATED AUTHOR 09/13/2017 [facility] DATE CREATED AUTHOR AUTHOR'S ORGANIZ ATION 12/13/2020 [facility] DATE CREATED AUTHOR AUTHOR'S ORGANIZ ATION 07/30/2022 [facility] DATE CREATED AUTHOR AUTHOR'S ORGANIZ ATION 09/22/2022 [facility] DATE CREATED AUTHOR AUTHOR'S ORGANIZ ATION 10/10/2023 [facility] DATE CREATED AUTHOR AUTHOR'S ORGANIZ ATION 10/26/2023 [facility] DATE CREATED AUTHOR AUTHOR'S ORGANIZ ATION 12/08/2023 [facility] EPIC Source Comments (unrecognize d section and content) In the event this informatio n is protected by the Federal Confidentiality of Alcohol and Drug Abuse Patient Records regulations: The Federal rules restrict any use of the information to criminally investigate or prosecute any alcohol or drug abuse patient.[facility] the event this information is protected by the Federal Confidentiality of Alcohol and Drug Abuse Patient Records regulations: The Federal rules restrict any use of the information to criminally investigate or prosecute any alcohol or drug abuse patient.[facility] the event this information is protected by the Federal Confidentiality of Alcohol and Drug Abuse Patient Records regulations: The Federal rules restrict any use of the information to criminally investigate or prosecute any alcohol or drug abuse patient.[facility] Reason for Visit (unrecogniz ed section and content) Reason Comments New Patient Evaluation Low Back Pain Reason Comments New Patient Reason Comments Gynecologic Exam Medicare yearly.LMP: SUNIL BSO 1972HRT: NoneLast pap 12-02-21 neg.Last mammogram 12-05-23 [facility] ordered by PCP.Denies breast or urinary concerns. bowel concern Some rectal bleeding with bowel movements. Denies difficulty having a bowel movement. Care Teams (unrecognized sec tion and content) Graduate Student Instructor Relationship Specialty Start Date End Date Galina Rogers MD [address] [place] [phone] PCP - General Family Medicine 05/14/22 Colette De Leon Jr., DO [address] [address] Referring Orthopedics 05/03/22 Lakshmipathy, Narendranath [address] [phone] Pain Management 05/14/22 Colette De Leon Jr., DO [address] [place] [address] Orthopedics 05/14/22 Graduate Student Instructor Relationship Specialty Start Date End Date Galina Rogers MD [address] [place] [address] PCP - General Family Medicine 05/14/22 Colette De Leon Jr., DO [address] [place] [address] Referring Orthopedics 05/03/22 Lakshmipathy, Narendranath [address] [phone] Pain Management 05/14/22 Colette De Leon Jr., DO [address] [place] [address] Orthopedics 05/14/22 Galina Rogers MD [address] [facility] [place] [address] Referring Family Medicine 08/11/22 Graduate Student Instructor Relationship Specialty Start Date End Date Galina Rogers MD [address] [place] [address] PCP - General Family Medicine 05/14/22 Colette De Leon Jr., DO [address] [place] [address] Referring Orthopedics 05/03/22 SylviegildardoPorsha mancia [address] [phone] Pain Management 05/14/22 Colette De Leon Jr., [address] [facility] [place] [address] [place] [address] Orthopedics 05/14/22 Galina Rogers MD [address] [place] [phone] Referring Family Medicine 08/11/22 Graduate Student Instructor Relationship Specialty Start Date End Date Galina Rogers MD [address] [place] [phone] PCP - General Family Medicine 08/02/22 FOR [...] BE BASED ON THE PRIMARY CLINICAL RECORDS. [facility] [employer] [facility]. provides no warranty or guarantee of the accuracy or completeness of information in this document.
[2024-01-16 09:54] VITALS: BP 190/79; PULSE 82; TEMP 36.6; O2SAT 97
[2024-01-16 10:24] VITALS: BP 216/91; PULSE 90; O2SAT 99
[2024-01-16 10:25] VITALS: PULSE 91; O2SAT 99
[2024-01-16 10:26] VITALS: BP 218/98
[2024-01-16] MEDS: 0.9 % SODIUM CHLORIDE 10 ML SYRINGE - SALINE FLUSH INJ (10:27)
[2024-01-16] MEDS: BUPIVACAINE HCL 0.25% PF 25 MG/10 ML VIAL INJ (10:27)
[2024-01-16] MEDS: LIDOCAINE HCL 2% 400 MG/20 ML MDV 3 ML INJ (10:28)
[2024-01-16] MEDS: IOHEXOL 240 MG/ML - 10 ML VIAL 12 MG INJ (10:28)
[2024-01-16] MEDS: TRIAMCINOLONE ACETONIDE 40 MG/ML VIAL 80 MG INJ (10:28)
--- NOTE | 2024-01-16 10:30 | P.ON_ITS ---
Date of procedure: 01/16/24 Pre-op diagnosis: Pain due to lumbar stenosis with neurogenic claudication Post-op diagnosis: same as pre-op Procedure: Procedure: Left L4-5, L5-S1 transforaminal epidural steroid injection Medications: Bupivacaine 0.25% 2cc, lidocaine 2% 1cc, kenalog 80mg The patient was seen and examined in the preoperative holding area.? Informed consent was obtained and placed on the chart.? Patient was brought to the medical procedure unit and placed in the prone position where a timeout was completed verifying the correct patient, procedure site, position, and planned special equipment using sterile aseptic technique.? Under direct fluoroscopic visualization a 25-gauge Quincke tipped spinal needle was advanced to the designated neural foramen where contrast dye was injected to show adequate spread.? The needle was inserted at level left L4-5. There was no evidence of vascular or adverse uptake.? Epidural spread was appreciated.? The above- mentioned injectate was then placed in a 1.5 mL aliquot preceded by negative aspiration.? The needle was removed. The needle was inserted and the procedure repeated at level left L5-S1.? The surgery site was covered.? Patient was taken to the postprocedural recovery area and monitored for an appropriate length of time before found suitable for discharge in the accompaniment of a responsible adult. Anesthesia: Local Surgeon: Lyn Quiñones Pathology: none sent Condition: stable Disposition: no change
== END 2024-01-16 10:39 | disposition home or self-care (01) ==
LOC: SURGOUT 09:35
PROVIDERS: PCP Family Medicine; Visit Provider Anesthesiology
DX: M48.062 Spinal stenosis, lumbar region with neurogenic claudication (principal)
CPT/HCPCS: 64483; 64484; J0665; J3301; Q9966

== ENCOUNTER 2024-02-01 12:55 | Outpatient (OUT) | payer MEDICARE, SELFPAY ==
--- OUTSIDE RECORDS SUMMARY | 2024-02-01 13:17 | XMS_ITS | CCD ---
Author Organization [facility] Care Team Providers Care Head Baggage Porter Name Role Phone PHYSICIAN, DEFAULT Unavailable Unavailable PHYSICIAN, DEFAULT Unavailable Unavailable Haley Matos DO, George Cajetan Unavailable Galina Rogers MD Primary Care Provider Lakshmipathy, Narendranath Unavailable [phone] Haley Matos DO, George Cajeaydee Unavailable ESTELA [...] KRANTHI Gaona Consulting Unavailable ESTELA ., DR MJOICA Primary Care Unavailable MELO ., ROGE Consulting Unavailable LATANYA ., DR NIKO Austin Attending Unavailable BECKWITH ., DR NIKO Austin Consulting Unavailable BECKWITH ., DR NIKO Ausitn Admitting Unavailable HOAshlie ., DR MOJICA Primary [...] Unavailable HOY ., DR MOJICA Consulting Unavailable [place], DR HERMES Jean Baptiste Consulting Unavailable LATANYA ., DR NIKO Austin Attending Unavailable LATANYA ., DR NIKO Austin Admitting Unavailable SEQUEIRA ., NOEMI Consulting Unavailable ESTELA ., DR MOJICA Primary Care Unavailable Haley Matos, Colette MOORE Unavailable Galina Rogers MD Unavailable GALINA ROGERS Primary Care Unavailable CAROLYN VANEGAS Attending Unavailable MARTY DOZIER Attending Unavailable Galina Rogers Attending Unavailable Galina Rogers Admitting Unavailable JR. HALEY, COLETTE Dorman Attending Unavailvanda DE LEON JR., COLETTE Dorman Referring UnavailARMANDO Trinh Attending Unavailable Galina Rogers MD Primary Care Provider [phone] Ishmael MEANS, Lyn Adams Attending Unavailable Ishmael MEANS, Andrius Adams Attending Unavailable Ishmael MEANS, Andrius Adams Attending Unavailable Ishmael MEANS, Lyn Adams Attending Unavailable Ishmael MEANS, yLn Adams Attending Unavailable Allergies Allergy Classification Reported Allergen(s) Allergy Type Date of Onset Reaction(s) Facility (5 sources) Codeine; Translations: [CODEINE] Drug Allergy 09-14-[address] [facility] (4 sources) Penicillins; Translations: [PENICILLINS] Drug Allergy 09-14-[address] [facility] (4 sources) pregabalin; Translations: [PREGABALIN] Drug Allergy 05-15-[address] [facility] Work Phone: (5 sources) Propoxyphene; Translations: [PROPOXYPHENE] Drug Allergy 05-15-19 Rash, Unknown, GI intolerance, Headache [facility] (4 sources) quiNINE; Translations: [QUINAMM] Drug Allergy 05-15-[address] [facility] (5 sources) Decongest Multi-Action; Translations: [Decongest Multi-Action] Drug Allergy 05-15-19 Other: See Comments [facility] (1 source) Acetaminophen / HYDROcodone Drug Allergy [facility] Rep[facility] (2 sources) Codeine Drug Allergy 09-14-19 13 [facility] Rep[facility] (1 source) Fluconazole Drug Allergy [facility] Rep[facility] (2 sources) Penicillins Drug allergy (disorder) 09-14-19 13 [facility] Rep[facility] (1 source) pregabalin Drug Allergy [facility] Rep[facility] (2 sources) Propoxyphene Drug Allergy [facility] Rep[facility] (1 source) quiNINE Drug Allergy [facility] Rep[facility] (1 source) Fluconazole Allergy to substance 12-06-[address] [facility] (1 source) Penicillins Propensity to adverse reactions 08-03-19 Unknown [facility] (1 source) Pregabalin Propensity to adverse reactions 08-03-[address] [facility] (1 source) Pseudoephedrine Drug Allergy 08-03-19 [facility] (1 source) quiNINE Drug Allergy 08-03-19 GI intolerance, Headache, Dizziness [facility] Medications Current Medications Medication Drug Class(es) Dates [...] mouth twice daily as needed HYDROcodone-acetamin ophen ([place]) 5-325 MG tablet 1 tablet as needed [...] Take by mouth twice a day. Active Rkhdtly-Kvbldkn-Nfxmh l Edwar (SALONPAS TD) (1 source) Camphor-Menthol- [...] (5 sources) Histamine-1 Receptor Antagonist End: 12-06-19 fexofenadine (Benita Allergy) 180 MG tablet [facility] 12/06/2023 Discontinued (Duplicate order) Comment on above: [...] above: Take by mouth twice daily. 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] Onset: 04-06-2022 Episodic Other aftercare (1 source) Other half-way (current) drug therapy; Translations: [OTH CAN INSPECTOR CURRENT DRUG THERAPY] Onset: 04-06-2022 Episodic Other [...] Test Name Value Interpretation Reference Range Facility [facility] 08-18-2023 L Specimen: [id number] Received: 08/22/23 Status: CECILIA Req Num: [id number] Spec Type: Impression Subm Dr: Galina Rogers MD Tissues: PATHPER Procedures: PATHREVIEW Age/ Patient Sex Location Account Attending Physician Alexa Delgado 83/F LABELL [id number] Galina Rogers MD SPEC NUM: [id number] RECD: 08/22/23 STATUS: CECILIA WRIGHT NUM: [id number] JANET: 08/18/[address]: Galina Rogers MD ENTERED: 08/22/23 [facility] DR: EvelynLab SPEC TYPE: Impression DEPT: SHELLIE Simmons ENTERED BY: [id number] RECV BY: [id number] ORDERED: PATHREVIEW ORDERED: PATHREVIEW Pathologist Review Abnormal [...] initial report for the needed correction CPT: 21663 ---- ---- Specimen: [id number] Received: 08/22/23 Status: CECILIA Wright Num: [id number] Spec Type: Impression Subm Dr: Galina Rogers MD Tissues: PATHPER Procedures: PATHREVIEW ---- Patient: Alexa Delgado [id number] (Continued) ---- Signed (signature on file) Anoop Abdul MD 08/24/23918 Normal [facility] CNOVon 09-21-2022 CNOV Office Visit (NSADHC ) ALEXA [id number]) 1940 F Date Time Provider Department 09/21/22 [...] Percentile 2 (more content not included)... Normal [facility] XR LSPINE 2_3 VIEWSon 2022 [...] MENDOZA Date: 2022-07-16 11:[address] [facility] CNOVon 05-14-2022 CNOV Office Visit (SPMESH ) ALEXA DELGADO ([id number]) 1940 F Date Time Provider Department 05/14/22 2:30 PM [facility] your visit today, we recorded the following information about you: Pulse Blood pressure Weight Height 72/minute 158/87 76.4 kg 1.524 m Marty Dozier DO 05/15/2022 10:[address] [facility] [...] Ratio: R>L low back Current Treatment: Medications [place] 5-325 mg BID - helps Diclofenac 75 [...] but still has pain -01/28/22 Noemi Sequeira REGISTRATION OFFICER: BL Lumbar erector spinae TPI (0.125% Marcaine, [...] ongoing as of 04/17/21 -03/08/21 Noemi Sequeira REGISTRATION OFFICER: Left rhomboid TPI (0.125% Marcaine, 40 mg Kenalog) -02/03/21 LESI - moderate relief for 4 days Prior spine surgery: -2006 L4-5 Discectomy Previously treated by: -[facility], previously Dr. Niko Beckwith [...] today. She has an evaluation at the [facility] tomorrow at the [facility]. RECOMMENDATIONS: We will see the pat (more content not included)... Normal [facility] CULTURE URINEon 04-05-2022 CULTURE URINE Culture Observations : LIGHT GROWTH OF MIXED GENITAL ALANIS. NO POTENTIAL PATHOGENS SEEN. Normal [facility] Comment on above: Performed By: #### U RCX ####[facility] [address] [place] [address]Dr. Grace Abdul UA RANDOM W/MICROSCOPICon BACTERIA NONE SEEN Normal NONE SEEN [facility] Comment on above: Performed By: #### U AMIC ####[facility] [address] [place], [place] [address]Dr. Grace Abdul Bilirubin Ql (U) Negative Normal NEGATIVE [facility] Comment on above: Performed By: #### U AMIC ####[facility] Yzad[address] [place], [place] [address]Dr. Grace Abdul CAST NONE SEEN Normal NONE SEEN [facility] Comment on above: Performed By: #### U AMIC ####[facility] Efh[address] [place], [place] [address]Dr. Grace Abdul Clarity (U) CLEAR Normal CLEAR [facility] Comment on above: Performed By: #### U AMIC ####[facility] [address] [place] [address]Dr. Grace Abdul Color (U) YELLOW Normal YELLOW [facility] Comment on above: Performed By: #### U AMIC ####[facility] [address] [place], [place] [address]Dr. Grace Abdul Crystals LM Nom (Urine sed) NONE SEEN Normal NONE SEEN [facility] Comment on above: Performed By: #### U AMIC ####[facility] V[address]tek[address] [place], [place] [address]Dr. Grace Abdul Epithelial cells LM Ql (Urine sed) RARE Normal NONE SEEN /RARE [facility] Comment on above: Performed By: #### U AMIC ####[facility] [address]se[address] [place], [place] [address]Dr. Grace Abdul Glucose Ql (U) Negative Normal NEGATIVE [facility] Comment on above: Performed By: #### U AMIC ####[facility] [address] [place] [address]Dr. Grace Abdlu Hemoglobin Ql (U) MODERATE Abnormal NEGATIVE [facility] Comment on above: Performed By: #### U AMIC ####[facility] [address]ft[address] [place] [address]Dr. Benitalee ann Abdul Ketones Ql (U) TRACE Abnormal NEGATIVE [facility] Comment on above: Performed By: #### U AMIC ####[facility] Otmpmp[address] [place], [place] [address]Dr. Grace Abdul LEUKOCYTES TRACE Abnormal NEGATIVE [facility] Comment on above: Performed By: #### U AMIC ####[facility] Lectodesqr[address] [place], [place] [address]Dr. Benitalee ann Franko MUCOUS NONE SEEN Normal NONE SEEN [facility] Comment on above: Performed By: #### U AMIC ####[facility] Xermvubqrq[address] [place], [place] [address]Dr. Grace Abdul Nitrite Ql (U) Negative Normal NEGATIVE [facility] Comment on above: Performed By: #### U AMIC ####[facility] Girjbtpdcd[address] [place], [place] [address]Dr. Grace Abdul pH (U) 5.0 [pH] Normal 5-9 [facility] Comment on above: Performed By: #### U AMIC ####[facility] Ninudtujsh[address] [place], [place] [address]Dr. Grace Abdul RBC 0-2 Normal 0-2 [facility] Comment on above: Performed By: #### U AMIC ####[facility] Tpgkziugho[address] [place], [place] [address]Dr. Grace Abdul SPEC GRAVITY 1.015 Normal 1.005-<=1.025 [facility] Comment on above: Performed By: #### U AMIC ####[facility] Ysbypbieel[address] [place], [place] [address]Dr. Grace Abdul UA PROTEIN Negative Normal NEGATIVE/ TRACE [facility] Comment on above: Performed By: #### U AMIC ####[facility] [address] [place] [address]Dr. Grace Abdul Urobilinogen Qn (U) 0.2 {Ashley'U}/dL Normal 0.2 - 1. 0 [facility] Comment on above: Performed By: #### U AMIC ####[facility] Le[address]vendc[address] [place] [address]Dr. Benitalee ann Abdul WBC 0-2 Abnormal NONE SEEN [facility] Comment on above: Performed By: #### U AMIC ####[facility] [address] [place] [address]Dr. Grace Franko CBC AUTO DIFFon 04-04-2022 BASO # 0.0 103/ul Normal 0.0-0.[address] [facility] Comment on above: Performed By: #### C BC ####[facility] Bushnnzq[address] [place], [place] [address]Dr. Benitalee ann Abdul Basophils/100 WBC (Bld) 0.4 % Normal 0.2-2.[address] [facility] Comment on above: Performed By: #### C BC ####[facility] [address]rs[address] [place], [place] [address]Dr. Benitalee ann Abdul EO # 0.1 103/ul Normal 0.0-0.[address] [facility] Comment on above: Performed By: #### C BC ####[facility] Rqvzwjvq[address] [place], [place] [address]Dr. Benitalee ann Abdul Eosinophils/100 WBC (Bld) 1.3 % Normal 0.9-7.[address] [facility] Comment on above: Performed By: #### C BC ####[facility] S[address] [place], [place] [address]Dr. Benitalee ann Abdul Erythrocyte distribution width (RBC) [Ratio] 13.7 % Normal 11.0-15.[address] [facility] Comment on above: Performed By: #### C BC ####[facility] W[address]ret[address] [place], [place] [address]Dr. Grace Abdul Hematocrit (Bld) [Volume fraction] 37.2 % Normal 36.0-48.[address] [facility] Comment on above: Performed By: #### C BC ####[facility] [address] [place] [address]Dr. Grace Abdul Hemoglobin (Bld) [Mass/Vol] 12.4 g/dL Normal 12.0-16.[address] [facility] Comment on above: Performed By: #### C BC ####[facility] [address]wvsxarn[address] [place] [address]DrLisette Grace Abdul IG # 0.02 10e3/ul Normal 0.00-0.[address] [facility] Comment on above: Performed By: #### C BC ####[facility] Witstfcowc[address] [place] [address]Dr. Grace Franko IG % 0.4 % Normal 0.0-0.[address] [facility] Comment on above: Performed By: #### C BC ####[facility] Gdxgiavrai[address] [place] [address]DrLisette Abdul LYMPH # 0.8 103/ul Critically low 1.2-3.8 [facility] Comment on above: Performed By: #### C BC ####[facility] Xclkmpxenv37[address] [place] [address]DrLisette Benitalee ann Abdul Lymphocytes/100 WBC (Bld) 13.9 % Critically low 20.5-60.[address] [facility] Comment on above: Performed By: #### C BC ####[facility] Fujmeikage[address] [place] [address]Dr. Benitalee ann Abdul MANUAL DIFF REQ NO Normal [facility] Comment on above: Performed By: #### C BC ####[facility] [address]ae[address]ey[address] [place] [address]Dr. Grace Franko MCH (RBC) [Entitic mass] 30.5 pg Normal 26.7-34.[address] [facility] Comment on above: Performed By: #### C BC ####[facility] Nnxznlkbtv[address] [place] [address]Dr. Benitalee ann Abdul MCHC (RBC) [Mass/Vol] 33.3 g/dL Normal 29.9-35.[address] [facility] Comment on above: Performed By: #### C BC ####[facility] [address]ff[address]qn[address] [place] [address]DrLisette Grace Franko MCV (RBC) [Entitic vol] 91.4 fL Normal 81.0-99.[address] [facility] Comment on above: Performed By: #### C BC ####[facility] Ily[address]xauy[address] [place] [address]DrLisette Abdul MONO # 0.7 103/ul Normal 0.3-0.8 [facility] Comment on above: Performed By: #### C BC ####[facility] Ubqholpuln[address] [place] [address]Dr. Grace Abdul Monocytes/100 WBC (Bld) 13.5 % Critically high 1.7-12.0 [facility] Comment on above: Performed By: #### C BC ####[facility] I[address] [place], [place] [address]Dr. Grace Abdul NEUT # 3.8 103/ul Normal 1.4-6.5 [facility] Comment on above: Performed By: #### C BC ####[facility] Cyuidndepk[address] [place], [place] [address]Dr. Grace Abdul Neutrophils/100 WBC (Bld) 70.5 % Normal 43.0-75.0 [facility] Comment on above: Performed By: #### C BC ####[facility] [address]ctevtc[address] [place], [place] [address]DrLisette Abdul Platelet mean volume (Bld) [Entitic vol] 9.0 fL Critically low 9.5-13.5 [facility] Comment on above: Performed By: #### C BC ####[facility] Araaashxtk[address] [place], [place] [address]Dr. Grace Abdul PLT 283 103/ul Normal 150-450 [facility] Comment on above: Performed By: #### C BC ####[facility] W[address] [place] [address]DrListete Abdul RBC 4.07 106/ul Critically low 4.20-5.40 [facility] Comment on above: Performed By: #### C BC ####[facility] F[address] [place], [place] [address]QhLisette Abdul WBC 5.4 103/ul Normal 4.0-11.[address] [facility] Comment on above: Performed By: #### C BC ####[facility] Qpsz[address]zcazk[address] [place], [place] [address]Wl[address] CT ABD/PELV W CONon 04-04-19 23 [...] EMILY NAVARRETE Date: 2022-04-04 16:59 Normal [facility] ER URINE PROFILEon 3 Bilirubin Ql (U) Negative Normal NEGATIVE [facility] Comment on above: Performed By: #### GINA FELDERRO ####[facility] Fbagy[address]ztoe[address] [place] [address]Dr. Benitalee ann Abdul Clarity (U) CLEAR Normal CLEAR [facility] Comment on above: Performed By: #### GINA FELDERRO ####[facility] [address]px[address] [place] [address]Dr. Benitalee ann Abdul Color (U) LT. YELLOW Normal YELLOW [facility] Comment on above: Performed By: #### GINA FELDERRO ####[facility] [address] [place], [place] [address]Dr. Grace Abdul ERUAHD A micrscopic examination will be performed if indicated. Normal [facility] Comment on above: Performed By: #### GINA FELDERRO ####[facility] [address]kl[address]sc[address] [place], [place] [address]Dr. Grace Abdul Glucose Ql (U) Negative Normal NEGATIVE [facility] Comment on above: Performed By: #### GINA FELDERRO ####[facility] N[address]ep[address] [place], [place] [address]Dr. Grace Abdul Hemoglobin Ql (U) SMALL Abnormal NEGATIVE [facility] Comment on above: Performed By: #### GINA FELDERRO ####[facility] Xzenencyyp[address] [place], [place] [address]Dr. Grace Abdul Ketones Ql (U) Negative Normal NEGATIVE [facility] Comment on above: Performed By: #### GINA FELDERRO ####[facility] Y[address]ffnlbp[address] [place], [place] [address]Dr. Grace Abdul LEUKOCYTES TRACE Abnormal NEGATIVE [facility] Comment on above: Performed By: #### GINA FELDERRO ####[facility] [address]nsrhxl[address] [place], [place] [address]Dr. Grace Abdul Nitrite Ql (U) Negative Normal NEGATIVE [facility] Comment on above: Performed By: #### ROBERT FELDER ####[facility] [address]toamho[address] [place] [address]Dr. Grace Abdul pH (U) 7.5 [pH] Normal 5-9 [facility] Comment on above: Performed By: #### GINA FELDERRO ####[facility] [address]jcowar[address] [place] [address]Dr. Grace Abdul SPEC GRAVITY 1.005 Normal 1.005-<=1.025 [facility] Comment on above: Performed By: #### Anthony ELLISON CARLENERO ####[facility] [address]ftxhrx[address] [place] [address]Dr. Grace Abdul UA PROTEIN Negative Normal NEGATIVE/ TRACE [facility] Comment on above: Performed By: #### Anthony ELLISON CARLENERO ####[facility] [address]rrw[address] [place] [address]Dr. Grace Abdul UR MICRO IND INDICATED Normal [facility] Comment on above: Performed By: #### Anthony ELLISON CARLENERO ####[facility] [address]kekowt[address] [place] [address]Dr. Grace Abdul Urobilinogen Qn (U) 0.2 {Ashley'U}/dL Normal 0.2 - 1. [address] [facility] Comment on above: Performed By: #### Anthony ELLISON CARLENERO ####[facility] [address]dtkewh[address] [place] [address]Dr. Grace Abdul LIPASEon 04-04-2022 Lipase [Catalytic activity/Vol] 115.0 U/L Normal 73.0-393.[address] [facility] Comment on above: Performed By: #### C MALCOLM #### [facility] Laboratory [address] [place] [address] Dr. Grace Abdul PROF 14(COMP METB)on 023 Albumin [Mass/Vol] 3.6 g/dL Normal 3.4-5.0 [facility] Comment on above: Performed By: #### Lakia PATIÑO #### [facility] [address] [place] [address] Dr. Grace Abdul Albumin/Globulin [Mass ratio] 1.1 {ratio} Normal [facility] Comment on above: Performed By: #### C VDTBH #### [facility] [address] [place] [address] Dr. Grace Abdul ALP [Catalytic activity/Vol] 74 U/L Normal 46-[address] [facility] Comment on above: Performed By: #### C VDTBH #### [facility] [address] [place] [address] Dr. Grace Abdul ALT [Catalytic activity/Vol] 23 U/L Normal 14-[address] [facility] Comment on above: Performed By: #### C VDTBH #### [facility] [address] [place] [address] Dr. Grace Abdul Anion gap [Moles/Vol] 12.1 mmol/L Normal [facility] Comment on above: Performed By: #### C VDTBH #### [facility] [address] [place] [address] Dr. Grace Abdul AST [Catalytic activity/Vol] 21 U/L Normal 15-[address] [facility] Comment on above: Performed By: #### C VDTBH #### [facility] [address] [place] [address] Dr. Grace Abdul Bilirubin [Mass/Vol] 0.2 mg/dL Normal 0.2-1.[address] [facility] Comment on above: Performed By: #### C VDTBH #### [facility] [address] [place] [address] Dr. Grace Abdul Calcium [Mass/Vol] 9.3 mg/dL Normal 8.5-10.1 [facility] Comment on above: Performed By: #### C VDTBH #### [facility] [address] [place] [address] Dr. Grace Abdul Chloride [Moles/Vol] 99 mmol/L Normal 98-[address] [facility] Comment on above: Performed By: #### C VDTBH #### [facility] [address] [place] [address] Dr. Grcae Abdul CO2 [Moles/Vol] 31.2 mmol/L Normal 21.0-32.0 [facility] Comment on above: Performed By: #### C VDTBH #### [facility] [address] [place] [address] Dr. Grace Abdul Creatinine [Mass/Vol] 1.22 mg/dL Critically high 0.55-1.[address] [facility] Comment on above: Performed By: #### C VDTBH #### [facility] [address] [place] [address] Dr. Grace Abdul EGFR-AF ALGERIAN 51 mL/min/1.73m2 Critically low >=[address] [facility] Comment on above: Performed By: #### C VDTBH #### [facility] [address] [place] [address] Dr. Grace Abdul EGFR-NON AF ALGERIAN 42 mL/min/1.73m2 Critically low >=[address] [facility] Comment on above: Performed By: #### C VDTBH #### [facility] [address] [place] [address] Dr. Grace Abdul Globulin (S) [Mass/Vol] 3.3 g/dL Normal [facility] Comment on above: Performed By: #### C VDTBH #### [facility] [address] [place] [address] Dr. Grace Abdul Glucose [Mass/Vol] 115 mg/dL Critically high 74-106 [facility] Comment on above: Performed By: #### C VDTBH #### [facility] [address] [place] [address] Dr. Grace Abdul Potassium [Moles/Vol] 3.3 mmol/L Critically low 3.5-5.[address] [facility] Comment on above: Performed By: #### C VDTBH #### [facility] [address] [place] [address] Dr. Grace Abdul Protein [Mass/Vol] 6.9 g/dL Normal 6.4-8.2 [facility] Comment on above: Performed By: #### C VDTBH #### [facility] [address] [place] [address] Dr. Grace Abdul Sodium [Moles/Vol] 139 mmol/L Normal 136-145 [facility] Comment on above: Performed By: #### C JOETB #### [facility] [address] [address] [address] Grace Abdul Urea nitrogen [Mass/Vol] 23.0 mg/dL Critically high 7.0-18.[address] [facility] Comment on above: Performed By: #### C JOETBH #### [facility] [address] [address] [address] Grace Abdul Urea nitrogen/Creatinine [Mass ratio] 18.9 mg/mg Normal [facility] Comment on above: Performed By: #### C JOETB #### [facility] [address] [address] [address] Grace Abdul URINE MICROSCOPIC ONLYon BACTERIA NONE SEEN Normal NONE SEEN [facility] Comment on above: Performed By: #### GINA FELDERRO ####[facility] [address] [address]Dr. Grace Abdul Bacteria identified Cx Nom (U) NOT INDICATED Normal The [facility] Comment on above: Performed By: #### GINA FELDERRO ####[facility] [address] [address]Dr. Grace Abdul CAST NONE SEEN Normal NONE SEEN [facility] Comment on above: Performed By: #### Anthony ELLISON UMICRO ####[facility] [address] [address]Dr. Grace Abdul Crystals LM Nom (Urine sed) NONE SEEN Normal NONE SEEN The [facility] Comment on above: Performed By: #### Anthony ELLISON UMICRO ####[facility] [address] [address]Dr. Grace Abdul Epithelial cells LM Ql (Urine sed) RARE Normal NONE SEEN /RARE The [facility] Comment on above: Performed By: #### Anthony ELLISON UMICRO ####[facility] [address] [address]Dr. Grace Abdul MUCOUS NONE SEEN Normal NONE SEEN The [facility] Comment on above: Performed By: #### ROBERT FELDER ####[facility] [address] [address]Dr. Grace Abdul RBC 0-2 Normal 0-2 [facility] Comment on above: Performed By: #### ROBERT FELDER ####[facility] [address] [address]Dr. Grace Abdul WBC 0-2 Abnormal NONE SEEN The [facility] Comment on above: Performed By: #### ROBERT FELDER ####[facility] [address] [address]Dr. Grace Abdul BNPon 12-11-2021 Natriuretic peptide B (Bld) [Mass/Vol] 665.0 pg/mL Normal <=1,800.[address] [facility] Comment on above: Performed By: #### B MP #### [facility] [address] [address] [address] Grace Abdul CBC AUTO DIFFon 12-11-2021 BASO # 0.0 103/ul Normal 0.0-0.[address] [facility] Comment on above: Performed By: #### C BC ####[facility] [address] [place], [place] [address]DrLisette Abdul Basophils/100 WBC (Bld) 0.5 % Normal 0.2-2.0 The [facility] Comment on above: Performed By: #### C BC ####[facility] [address] [place], [place] [address]DrLisette Abdul EO # 0.1 103/ul Normal 0.0-0.7 [facility] Comment on above: Performed By: #### C BC ####[facility] [address] [address]Dr. Grace Abdul Eosinophils/100 WBC (Bld) 1.9 % Normal 0.9-7.0 The [facility] Comment on above: Performed By: #### C BC ####[facility] [address] [place], [place] [address]DrLisette Abdul Erythrocyte distribution width (RBC) [Ratio] 13.4 % Normal 11.0-15.[address] [facility] Comment on above: Performed By: #### C BC ####[facility] [address] [address]Dr. Grace Abdul Hematocrit (Bld) [Volume fraction] 36.2 % Normal 36.0-48.0 [facility] Comment on above: Performed By: #### C BC ####[facility] [address] [place], [place] [address]Dr. Grace Abdul Hemoglobin (Bld) [Mass/Vol] 11.9 g/dL Critically low 12.0-16.0 [facility] Comment on above: Performed By: #### C BC ####[facility] [address] [place], [place] [address]Dr. Benitalee ann rFanko IG # 0.01 10e3/ul Normal 0.00-0.[address] [facility] Comment on above: Performed By: #### C BC ####[facility] [address] [place], [place] [address]Dr. Benitalee ann Abdul IG % 0.2 % Normal 0.0-0.[address] [facility] Comment on above: Performed By: #### C BC ####[facility] [address] [place], [place] [address]DrLisette Grace Franko LYMPH # 0.5 103/ul Critically low 1.2-3.8 [facility] Comment on above: Performed By: #### C BC ####[facility] [address] [place], [place] [address]DrLisette Grace Franko Lymphocytes/100 WBC (Bld) 11.5 % Critically low 20.5-60.0 The [facility] Comment on above: Performed By: #### C BC ####[facility] [address] [place], [place] [address]DrLisette Grace Franko MANUAL DIFF REQ NO Normal The [facility] Comment on above: Performed By: #### C BC ####[facility] [address] [place], [place] [address]DrLisette Abdul MCH (RBC) [Entitic mass] 31.6 pg Normal 26.7-34.0 [facility] Comment on above: Performed By: #### C BC ####[facility] [address] [address]Dr. Grace Abdul MCHC (RBC) [Mass/Vol] 32.9 g/dL Normal 29.9-35.2 [facility] Comment on above: Performed By: #### C BC ####[facility] [address] [place], [place] [address]Dr. Grace Abdul MCV (RBC) [Entitic vol] 96.0 fL Normal 81.0-99.0 The [facility] Comment on above: Performed By: #### C BC ####[facility] [address] [place], [place] [address]Dr. Grace Abdul MONO # 0.6 103/ul Normal 0.3-0.8 [facility] Comment on above: Performed By: #### C BC ####[facility] [address] [place], [place] [address]Dr. Grace Franko Monocytes/100 WBC (Bld) 14.4 % Critically high 1.7-12.0 The [facility] Comment on above: Performed By: #### C BC ####[facility] [address] [place], [place] [address]Dr. Grace Abdul NEUT # 3.0 103/ul Normal 1.4-6.5 [facility] Comment on above: Performed By: #### C BC ####[facility] [address] [place], [place] [address]Dr. Grace Franko Neutrophils/100 WBC (Bld) 71.5 % Normal 43.0-75.0 The [facility] Comment on above: Performed By: #### C BC ####[facility] [address] [place], [place] [address]DrLisette Grace Franko Platelet mean volume (Bld) [Entitic vol] 9.2 fL Critically low 9.5-13.5 The [facility] Comment on above: Performed By: #### C BC ####[facility] [address] [place] [address]Zk. Grace Abdul PLT 290 103/ul Normal 150-450 [facility] Comment on above: Performed By: #### C BC ####[facility] [address] [address]DrLisette Abdul RBC 3.77 106/ul Critically low 4.20-5.40 [facility] Comment on above: Performed By: #### C BC ####[facility] [address] [address]DrLisette Abdul WBC 4.2 103/ul Normal 4.0-11.[address] [facility] Comment on above: Performed By: #### C BC ####[facility] [address] [address]Dr. Grace Abdul FREE THYROXINE INDEX T7on FTI 2.63 Normal 1.30-4.[address] [facility] Comment on above: Performed By: #### B MP #### [facility] [address] [address] [address] Grace Abdul T3U 35.0 % Normal 30.0-39.[address] [facility] Comment on above: Performed By: #### B MP #### [facility] [address] [address] [address] Grace Abdul T4 [Mass/Vol] 7.50 ug/dL Normal 4.80-13.90 [facility] Comment on above: Performed By: #### B MP #### [facility] [address] [address] [address] Grace Abdul GLYCOHEMOGLOBIN A1Con 2021 ADA RECOMMENDATION SEE BELOW Normal [facility] Comment on above: Result Comment: ADA RECOMMENDED LIMIT 4.0 - 6.0 ADA THERAPEUTIC TARGET < 7.0 ACTION SUGGESTED > 7.0 Performed By: #### A 1C ####[facility] [address] [address]Dr. Grace Abdul Glucose [Mass/Vol] 111 mg/dL Normal [facility] Comment on above: Performed By: #### A 1C ####[facility] [address] [place], [place] [address]OnDr. Grace Abdul HbA1c (Bld) [Mass fraction] 5.5 % Normal 4.5-6.[address] [facility] Comment on above: Performed By: #### A 1C ####[facility] [address] [place], [place] [address]SeDr. Grace Abdul IRONon 12-11-2021 Iron [Mass/Vol] 50.0 ug/dL Normal 50.0-170.0 [facility] Comment on above: Performed By: #### I DARIN, VITAD, VITB12 ####[facility] [address] [address]Dr. Grace Abdul LIPID PROFILEon 12-11-2021 CHOL-HDL RATIO NORM SEE BELOW Normal [facility] Comment on above: Result Comment: 3.3 - 4.4 LOW RISK 4.4 - 7.1 AVERAGE RISK 7.1 - 11.0 MODERATE RISK >11.0 HIGH RISK Performed By: #### B MP #### [facility] [address] [address] [address] Grace Abdul Cholesterol [Mass/Vol] 182 mg/dL Normal <=[address] [facility] Comment on above: Performed By: #### B MP #### [facility] [address] [address] [address] Grace Abdul Cholesterol in HDL [Mass/Vol] 60 mg/dL Normal 40-[address] [facility] Comment on above: Performed By: #### B MP #### [facility] [address] [address] [address] Grace Abdul Cholesterol in LDL [Mass/Vol] 101.2 mg/dL Normal [facility] Comment on above: Performed By: #### B MP #### [facility] [address] [address] [address] Grace Abdul Cholesterol.total/Ch olesterol in HDL [Mass ratio] 3.0 {ratio} Normal [facility] Comment on above: Performed By: #### B MP #### [facility] [address] [address] [address] Grace Abdul HDL NORMAL > or = 60 mg/dl - LO W CARDIOVASCULAR RISK <40 mg/dl - HIGH CARDIOVASCULAR RISK Normal [facility] Comment on above: Performed By: #### B MP #### [facility] [address] [address] [address] Grace Abdul LDL CALC NORMAL SEE BELOW Normal [facility] Comment on above: Result Comment: <100 mg/dl OPTIMAL 100 - 129 mg/dl NEAR OR ABOVE OPTIMAL 130 - 159 mg/dl BORDERLINE HIGH 160 - 189 mg/dl HIGH >190 mg/dl VERY HIGH Performed By: #### B MP #### [facility] [address] [address] [address] Grace Abdul Triglyceride [Mass/Vol] 104 mg/dL Normal <=[address] [facility] Comment on above: Performed By: #### B MP #### [facility] [address] [place] [address] Dr. Grace Abdul VLDL CALC 20.8 mg/dL Normal [facility] Comment on above: Performed By: #### B MP #### [facility] [address] [place] [address] Dr. Grace Abdul PROF 14(COMP METB)on 12-11- 022 Albumin [Mass/Vol] 3.5 g/dL Normal 3.4-5.0 [facility] Comment on above: Performed By: #### B MP #### [facility] [address] [place] [address] Dr. Grace Abdul Albumin/Globulin [Mass ratio] 1.0 {ratio} Normal [facility] Comment on above: Performed By: #### B MP #### [facility] [address] [place] [address] Dr. Grace Abdul ALP [Catalytic activity/Vol] 55 U/L Normal 46-116 [facility] Comment on above: Performed By: #### B MP #### [facility] [address] [place] [address] Dr. Grace Abdul ALT [Catalytic activity/Vol] 21 U/L Normal 14-[address] [facility] Comment on above: Performed By: #### B MP #### [facility] [address] [address] [address] Grace Abdul Anion gap [Moles/Vol] 9.3 mmol/L Normal [facility] Comment on above: Performed By: #### B MP #### [facility] [address] [address] [address] Grace Abdul AST [Catalytic activity/Vol] 21 U/L Normal 15-[address] [facility] Comment on above: Performed By: #### B MP #### [facility] [address] [address] [address] Grace Abdul Bilirubin [Mass/Vol] 0.3 mg/dL Normal 0.2-1.[address] [facility] Comment on above: Performed By: #### B MP #### [facility] [address] [place] [address] Dr. Grace Abdul Calcium [Mass/Vol] 9.5 mg/dL Normal 8.5-10.1 [facility] Comment on above: Performed By: #### B MP #### [facility] [address] [place] [address] Dr. Grace Abdul Chloride [Moles/Vol] 102 mmol/L Normal 98-[address] [facility] Comment on above: Performed By: #### B MP #### [facility] [address] [address] [address] Grace Abdul CO2 [Moles/Vol] 28.5 mmol/L Normal 21.0-32.0 [facility] Comment on above: Performed By: #### B MP #### [facility] [address] [address] [address] Grace Abdul Creatinine [Mass/Vol] 1.04 mg/dL Critically high 0.55-1.[address] [facility] Comment on above: Performed By: #### B MP #### [facility] [address] [address] [address] Grace Abdul EGFR-AF ALGERIAN >60 Normal >=60 [facility] Comment on above: Performed By: #### B MP #### [facility] [address] [address] [address] Grace Abdul EGFR-NON AF ALGERIAN 51 mL/min/1.73m2 Critically low >=[address] [facility] Comment on above: Performed By: #### B MP #### [facility] [address] [place] [address] Dr. Grace Abdul Globulin (S) [Mass/Vol] 3.5 g/dL Normal [facility] Comment on above: Performed By: #### B MP #### [facility] [address] [address] [address] Grace Abdul Glucose [Mass/Vol] 102 mg/dL Normal 74-106 [facility] Comment on above: Performed By: #### B MP #### [facility] [address] [place] [address] Dr. Grace Abdul Potassium [Moles/Vol] 3.8 mmol/L Normal 3.5-5.[address] [facility] Comment on above: Performed By: #### B MP #### [facility] [address] [place] [address] Dr. Grace Abdul Protein [Mass/Vol] 7.0 g/dL Normal 6.4-8.2 [facility] Comment on above: Performed By: #### B MP #### [facility] [address] [place] [address] Dr. Grace Abdul Sodium [Moles/Vol] 136 mmol/L Normal 136-145 [facility] Comment on above: Performed By: #### B MP #### [facility] [address] [place] [address] Dr. Grace Abdul Urea nitrogen [Mass/Vol] 20.0 mg/dL Critically high 7.0-18.[address] [facility] Comment on above: Performed By: #### B MP #### [facility] [address] [place] [address] Dr. Grace Abdul Urea nitrogen/Creatinine [Mass ratio] 19.2 mg/mg Normal [facility] Comment on above: Performed By: #### B MP #### [facility] [address] [place] [address] Dr. Grace Abdul TSHon 12-11-2021 TSH 0.247 uIU/mL Critically low 0.358-3.740 [facility] Comment on above: Performed By: #### B MP #### [facility] [address] [place], [place] [address] Dr. Grace Abdul VITAMIN B12on 12-11-2021 Cobalamin (Vitamin B12) [Mass/Vol] 762.0 pg/mL Normal 193.0-986.[address] [facility] Comment on above: Performed By: #### I KASANDRA WEBSTER VITB12 ####[facility] [address] [address]DrLisette Abdul VITAMIN D 25 OHon 12-11-2021 VIT D 25-OH 54.9 ng/mL Normal [facility] Comment on above: Performed By: #### I DARIN VITLETTY, VITB12 ####[facility] [address] [address]Dr. Grace Abdul VIT D RANGES SEE BELOW Normal [facility] Comment on above: Result Comment: <20 ng/mL Vit D deficient 20 - <30 ng/mL Vit D insufficient 30 - 100 ng/mL Vit D sufficient >100 ng/mL Potential Toxicity Performed By: #### I KASANDRA WEBSTER, VITB12 ####[facility] [address] [address]DrLisette Abdul MG MAMM SCREEN 3D CLEMENCIA CADon 11-25-2021 MG MAMM SCREEN 3D CLEMENCIA CAD Patient: ALEXA DELGADO Exam Date: 11/25/2021 : 1940 Gender:F Ordering : DR GALINA ROGERS . Admission #: [id number] Family : DR ARMANDO MORALES Order #: [id number] CLICK HERE TO VIEW EXAM RADIOLOGY REPORT [...] Treatments None Family Cancers None LOCATION: The [facility] BREAST COMPOSITION: Scattered areas fibroglandular density. FINDINGS: [...] Mendoza MD on 11/25/2021 at 14:[address] [facility] CULTURE URINEon 11-24-2021 CULTURE URINE Culture Observations : LIGHT GROWTH OF MIXED GENITAL ALANIS. NO POTENTIAL PATHOGENS SEEN. Normal [facility] Comment on above: Performed By: #### U RCX ####[facility] [address] [address]Dr. Grace Abdul GI PANEL (PCR)on 11-24-2021 Adenovirus F 40/41 Not detected Normal NOT DETECTED [facility] Comment on above: Performed By: #### C BC #### [facility] [address] [address] [address] Grace Abdul Astrovirus Not detected Normal NOT DETECTED [facility] Comment on above: Performed By: #### C BC #### [facility] [address] [address] [address] Grace Guthrie Diff toxin A/B Not detected Normal NOT DETECTED [facility] Comment on above: Performed By: #### C BC #### [facility] [address] [address] [address] Grace Abdul Campylobacter Not detected Normal NOT DETECTED [facility] Comment on above: Performed By: #### C BC #### [facility] [address] [address] [address] Grace Abdul Cryptosporidium Not detected Normal NOT DETECTED [facility] Comment on above: Performed By: #### C BC #### [facility] [address] [address] [address] Grace Abdul Cyclos. Cayetanensis Not detected Normal NOT DETECTED [facility] Comment on above: Performed By: #### C BC #### [facility] [address] [place] [address] Dr. Grace Abdul E. Coli O157 Not Applicable Normal Not Applicable [facility] Comment on above: Performed By: #### C BC #### [facility] [address] [place] [address] Dr. Grace Abdul E. histolytica Not detected Normal NOT DETECTED [facility] Comment on above: Performed By: #### C BC #### [facility] [address] [place] [address] Dr. Grace Abdul EAEC Not detected Normal NOT DETECTED [facility] Comment on above: Performed By: #### C BC #### [facility] [address] [place] [address] Dr. Grace Abdul EIEC Not detected Normal NOT DETECTED [facility] Comment on above: Performed By: #### C BC #### [facility] [address] [place] [address] Dr. Grace Abdul EPEC Not detected Normal NOT DETECTED [facility] Comment on above: Performed By: #### C BC #### [facility] [address] [place] [address] Dr. Grace Abdul ETEC Not detected Normal NOT DETECTED [facility] Comment on above: Performed By: #### C BC #### [facility] [address] [place] [address] Dr. Grace Abdul G. Lamblia Not detected Normal NOT DETECTED [facility] Comment on above: Performed By: #### C BC #### [facility] [address] [place] [address] Dr. Grace NOLASCOANEL CONTROLS PASSED Normal [facility] Comment on above: Performed By: #### C BC #### [facility] [address] [place] [address] Dr. Grace MATAMOROS KAUR HEADER GI PANEL BACTERIA Normal [facility] Comment on above: Performed By: #### C BC #### [facility] [address] [place] [address] Dr. Grace MATAMOROSHD ECOLI GI PANEL DIARRHEAGEN IC E.COLI / SHIGELLA Normal [facility] Comment on above: Performed By: #### C BC #### [facility] Laboratory [address] [address] [address] Grace SANDERS INFO SEE BELOW Normal The [facility] Comment on above: Result Comment: EAEC - Enteroaggregative E. Coli EPEC- Enteropathogenic E. Coli ETEC- Enterotoxigenic E. Coli lt/st STEC- Shigella-like toxin-producing E. Coli stx1/stx2 EIEC- Shigella/Enteroinvasive E. Coli Performed By: #### C BC #### [facility] Laboratory [address] [address] [address] Grace SANDERS PARASITES GI PANEL PARASITES Normal The [facility] Comment on above: Performed By: #### C BC #### [facility] Laboratory [address] [place] [address] Dr. Grace SANDERS VIRUS GI PANEL VIRUSES Normal [facility] Comment on above: Performed By: #### C BC #### [facility] Laboratory [address] [place] [address] Dr. Grace Abdul Norovirus GI/GII Not detected Normal NOT DETECTED The [facility] Comment on above: Performed By: #### C BC #### [facility] Laboratory [address] [place] [address] Dr. Grace Abdul P. Shigelloides Not detected Normal NOT DETECTED [facility] Comment on above: Performed By: #### C BC #### [facility] Laboratory [address] [place] [address] Dr. Grace Abdul Rotavirus A Not detected Normal NOT DETECTED The [facility] Comment on above: Performed By: #### C BC #### [facility] Laboratory [address] [address] [address] Grace Abdul Salmonella Not detected Normal NOT DETECTED The [facility] Comment on above: Performed By: #### C BC #### [facility] Laboratory [address] [place] [address] Dr. Grace Abdul Sapovirus Not detected Normal NOT DETECTED [facility] Comment on above: Performed By: #### C BC #### [facility] Laboratory [address] [address] [address] Grace Abdul STEC Not detected Normal NOT DETECTED [facility] Comment on above: Performed By: #### C BC #### [facility] Laboratory [address] [address] [address] Grace Abudl Vibrio Not detected Normal NOT DETECTED [facility] Comment on above: Performed By: #### C BC #### [facility] Laboratory [address] [address] [address] Grace Abdul Vibrio Cholera Not detected Normal NOT DETECTED The [facility] Comment on above: Performed By: #### C BC #### [facility] Laboratory [address] [address] [address] Grace Abdul Y. Enterocolitica Not detected Normal NOT DETECTED The [facility] Comment on above: Performed By: #### C BC #### [facility] Laboratory [address] [place] [address] Dr. Grace Abdul UA RANDOM W/MICROSCOPICon BACTERIA NONE SEEN Normal NONE SEEN [facility] Comment on above: Performed By: #### U AMIC ####[facility] [address] [place], [place] [address]DrLisette Abdul Bilirubin Ql (U) Negative Normal NEGATIVE The [facility] Comment on above: Performed By: #### U AMIC ####[facility] [address] [address]DrLisette Abdul CAST NONE SEEN Normal NONE SEEN The [facility] Comment on above: Performed By: #### U AMIC ####[facility] [address] [address]DrLisette Abdul Clarity (U) CLEAR Normal CLEAR The [facility] Comment on above: Performed By: #### U AMIC ####[facility] [address] [address]DrLisette Abdul Color (U) LT. YELLOW Normal YELLOW The [facility] Comment on above: Performed By: #### U AMIC ####[facility] [address] [place], [place] [address]DrLisette Abdul Crystals LM Nom (Urine sed) NONE SEEN Normal NONE SEEN The [facility] Comment on above: Performed By: #### U AMIC ####[facility] [address] [place], [place] [address]Dr. Grace Abdul Epithelial cells LM Ql (Urine sed) FEW Abnormal NONE SEEN /RARE The [facility] Comment on above: Performed By: #### U AMIC ####[facility] [address] [place], [place] [address]Dr. Grace Abdul Glucose Ql (U) Negative Normal NEGATIVE [facility] Comment on above: Performed By: #### U AMIC ####[facility] [address] [place], [place] [address]Dr. Grace Abdul Hemoglobin Ql (U) TRACE-INTACT Abnormal NEGATIVE [facility] Comment on above: Performed By: #### U AMIC ####[facility] [address] [place], [place] [address]Dr. Grace Abdul Ketones Ql (U) Negative Normal NEGATIVE [facility] Comment on above: Performed By: #### U AMIC ####[facility] [address] [place], [place] [address]Dr. Grace Abdul LEUKOCYTES Negative Normal NEGATIVE The [facility] Comment on above: Performed By: #### U AMIC ####[facility] [address] [place], [place] [address]Dr. Grace Abdul MUCOUS NONE SEEN Normal NONE SEEN [facility] Comment on above: Performed By: #### U AMIC ####[facility] [address] [place], [place] [address]Dr. Grace Abdul Nitrite Ql (U) Negative Normal NEGATIVE [facility] Comment on above: Performed By: #### U AMIC ####[facility] [address] [place], [place] [address]Dr. Grace Abdul pH (U) 7.5 [pH] Normal 5-9 The [facility] Comment on above: Performed By: #### U AMIC ####[facility] [address] [place], [place] [address]Dr. Grace Abdul RBC 0-2 Normal 0-2 The [facility] Comment on above: Performed By: #### U AMIC ####[facility] [address] [address]Dr. Grace Abdul SPEC GRAVITY 1.010 Normal 1.005-<=1.025 The [facility] Comment on above: Performed By: #### U AMIC ####[facility] [address] [address]Dr. Grace Abdul UA PROTEIN Negative Normal NEGATIVE/ TRACE The [facility] Comment on above: Performed By: #### U AMIC ####[facility] [address] [address]Dr. Grace Abdul Urobilinogen Qn (U) 0.2 {Ashley'U}/dL Normal 0.2 - 1. [address] [facility] Comment on above: Performed By: #### U AMIC ####[facility] [address] [address]Dr. Grace Abdul WBC NONE SEEN Normal NONE SEEN The [facility] Comment on above: Performed By: #### U AMIC ####[facility] [address] [address]DrLisette Abdul CBC AUTO DIFFon 11-23-2021 BASO # 0.0 103/ul Normal 0.0-0.[address] [facility] Comment on above: Performed By: #### C BC #### [facility] Laboratory [address] [address] [address] Grace Abdul Basophils/100 WBC (Bld) 0.4 % Normal 0.2-2.0 The [facility] Comment on above: Performed By: #### C BC #### [facility] Laboratory [address] [address] [address] Grace Abdul EO # 0.1 103/ul Normal 0.0-0.7 The [facility] Comment on above: Performed By: #### C BC #### [facility] Laboratory [address] [address] [address] Grace Abdul Eosinophils/100 WBC (Bld) 1.5 % Normal 0.9-7.0 [facility] Comment on above: Performed By: #### C BC #### [facility] Laboratory [address] [place] [address] Dr. Grace Abdul Erythrocyte distribution width (RBC) [Ratio] 13.2 % Normal 11.0-15.[address] [facility] Comment on above: Performed By: #### C BC #### [facility] Laboratory [address] [place] [address] Dr. Grace Abdul Hematocrit (Bld) [Volume fraction] 31.9 % Critically low 36.0-48.[address] [facility] Comment on above: Performed By: #### C BC #### [facility] Laboratory [address] [place] [address] Dr. Grace Abdul Hemoglobin (Bld) [Mass/Vol] 10.5 g/dL Critically low 12.0-16.[address] [facility] Comment on above: Performed By: #### C BC #### [facility] Laboratory [address] [place] [address] Dr. Grace Abdul IG # 0.01 10e3/ul Normal 0.00-0.[address] [facility] Comment on above: Performed By: #### C BC #### [facility] Laboratory [address] [place] [address] Dr. Grace Abdul IG % 0.2 % Normal 0.0-0.[address] [facility] Comment on above: Performed By: #### C BC #### [facility] Laboratory [address] [place] [address] Dr. Grace Abdul LYMPH # 0.7 103/ul Critically low 1.2-3.8 [facility] Comment on above: Performed By: #### C BC #### [facility] Laboratory [address] [place] [address] Dr. Grace Abdul Lymphocytes/100 WBC (Bld) 14.8 % Critically low 20.5-60.[address] [facility] Comment on above: Performed By: #### C BC #### [facility] Laboratory [address] [place] [address] Dr. Grace Abdul MANUAL DIFF REQ NO Normal [facility] Comment on above: Performed By: #### C BC #### [facility] Laboratory [address] [address] [address] Grace Abdul MCH (RBC) [Entitic mass] 31.4 pg Normal 26.7-34.[address] [facility] Comment on above: Performed By: #### C BC #### [facility] Laboratory [address] [place] [address] Dr. Grace Abdul MCHC (RBC) [Mass/Vol] 32.9 g/dL Normal 29.9-35.2 [facility] Comment on above: Performed By: #### C BC #### [facility] Laboratory [address] [place] [address] Dr. Grace Abdul MCV (RBC) [Entitic vol] 95.5 fL Normal 81.0-99.[address] [facility] Comment on above: Performed By: #### C BC #### [facility] Laboratory [address] [place] [address] Dr. Grace Abdul MONO # 0.6 103/ul Normal 0.3-0.8 [facility] Comment on above: Performed By: #### C BC #### [facility] Laboratory [address] [place] [address] Dr. Grace Abdul Monocytes/100 WBC (Bld) 13.4 % Critically high 1.7-12.[address] [facility] Comment on above: Performed By: #### C BC #### [facility] Laboratory [address] [place] [address] Dr. Grace Abdul NEUT # 3.3 103/ul Normal 1.4-6.5 [facility] Comment on above: Performed By: #### C BC #### [facility] Laboratory [address] [place] [address] Dr. Grace Abdul Neutrophils/100 WBC (Bld) 69.7 % Normal 43.0-75.0 [facility] Comment on above: Performed By: #### C BC #### [facility] Laboratory [address] [place] [address] Dr. Grace Abdul Platelet mean volume (Bld) [Entitic vol] 9.1 fL Critically low 9.5-13.5 [facility] Comment on above: Performed By: #### C BC #### [facility] Laboratory [address] [place], [place] [address] Dr. Grace Abdul PLT 335 103/ul Normal 150-[address] [facility] Comment on above: Performed By: #### C BC #### [facility] Laboratory [address] [place], [place] [address] Dr. Grace Abdul RBC 3.34 106/ul Critically low 4.20-5.40 [facility] Comment on above: Performed By: #### C BC #### [facility] Laboratory [address] [address] [address] Grace Abdul WBC 4.8 103/ul Normal 4.0-11.[address] [facility] Comment on above: Performed By: #### C BC #### [facility] Laboratory [address] [address] [address] Grace Abdul FREE THYROXINE INDEX T7on FTI 1.15 Critically low 1.30-4.50 [facility] Comment on above: Performed By: #### T 7, CMP, TSH ####[facility] [address] [place], [place] [address]BbDr. Grace Abdul T3U 31.0 % Normal 30.0-39.[address] [facility] Comment on above: Performed By: #### T 7, CMP, TSH ####[facility] [address] [place], [place] [address]CfDr. Grace Abdul T4 [Mass/Vol] 3.70 ug/dL Critically low 4.80-13.90 [facility] Comment on above: Performed By: #### T 7, CMP, TSH ####[facility] [address] [place], [place] [address]BsDr. Grace Abdul IRONon 11-23-2021 Iron [Mass/Vol] 52.0 ug/dL Normal 50.0-170.0 [facility] Comment on above: Performed By: #### C VDTBH #### [facility] Laboratory [address] [address] [address] Grace Abdul PROF 14(COMP METB)on 022 Albumin [Mass/Vol] 3.5 g/dL Normal 3.4-5.0 [facility] Comment on above: Performed By: #### T 7, CMP, TSH ####[facility] [address] [address]Dr. Grace Abdul Albumin/Globulin [Mass ratio] 1.1 {ratio} Normal [facility] Comment on above: Performed By: #### T 7, CMP, TSH ####[facility] [address] [address]Dr. Grace Abdul ALP [Catalytic activity/Vol] 69 U/L Normal 46-116 [facility] Comment on above: Performed By: #### Ainsley 7, CMP, TSH ####[facility] [address] [place], [place] [address]Dr. Grace Abdul ALT [Catalytic activity/Vol] 51 U/L Normal 14-[address] [facility] Comment on above: Performed By: #### Ainsley 7, CMP, TSH ####[facility] [address] [place], [place] [address]Dr. Grace Abdul Anion gap [Moles/Vol] 11.5 mmol/L Normal [facility] Comment on above: Performed By: #### Ainsley 7, CMP, TSH ####[facility] [address] [place], [place] [address]Dr. Grace Abdul AST [Catalytic activity/Vol] 24 U/L Normal 15-[address] [facility] Comment on above: Performed By: #### T 7, CMP, TSH ####[facility] [address] [address]Dr. Grace Abdul Bilirubin [Mass/Vol] 0.2 mg/dL Normal 0.2-1.0 [facility] Comment on above: Performed By: #### T 7, CMP, TSH ####[facility] [address] [address]Dr. Grace Abdul Calcium [Mass/Vol] 9.3 mg/dL Normal 8.5-10.1 [facility] Comment on above: Performed By: #### Ainsley 7, CMP, TSH ####[facility] [address] [address]Dr. Grace Abdul Chloride [Moles/Vol] 98 mmol/L Normal 98-107 [facility] Comment on above: Performed By: #### T 7, CMP, TSH ####[facility] [address] [address]Dr. Grace Abdul CO2 [Moles/Vol] 28.7 mmol/L Normal 21.0-32.0 [facility] Comment on above: Performed By: #### T 7, CMP, TSH ####[facility] [address] [address]Dr. Grace Abdul Creatinine [Mass/Vol] 1.11 mg/dL Critically high 0.55-1.[address] [facility] Comment on above: Performed By: #### T 7, CMP, TSH ####[facility] [address] [address]Dr. Grace Abdul EGFR-AF ALGERIAN 57 mL/min/1.73m2 Critically low >=[address] [facility] Comment on above: Performed By: #### T 7, CMP, TSH ####[facility] [address] [address]Dr. Grace Abdul EGFR-NON AF ALGERIAN 47 mL/min/1.73m2 Critically low >=[address] [facility] Comment on above: Performed By: #### T 7, CMP, TSH ####[facility] [address] [address]Dr. Grace Abdul Globulin (S) [Mass/Vol] 3.3 g/dL Normal [facility] Comment on above: Performed By: #### T 7, CMP, TSH ####[facility] [address] [address]Dr. Grace Abdul Glucose [Mass/Vol] 88 mg/dL Normal 74-106 [facility] Comment on above: Performed By: #### T 7, CMP, TSH ####[facility] [address] [address]Dr. Grace Abdul Potassium [Moles/Vol] 4.2 mmol/L Normal 3.5-5.[address] [facility] Comment on above: Performed By: #### T 7, CMP, TSH ####[facility] [address] [address]Dr. Grace Abdul Protein [Mass/Vol] 6.8 g/dL Normal 6.4-8.2 [facility] Comment on above: Performed By: #### T 7, CMP, TSH ####[facility] [address] [address]Dr. Grace Abdul Sodium [Moles/Vol] 134 mmol/L Critically low 136-145 [facility] Comment on above: Performed By: #### T 7, CMP, TSH ####[facility] [address] [place], [place] [address]Dr. Grace Abdul Urea nitrogen [Mass/Vol] 33.0 mg/dL Critically high 7.0-18.[address] [facility] Comment on above: Performed By: #### T 7, CMP, TSH ####[facility] [address] [place], [place] [address]Dr. Grace Abdul Urea nitrogen/Creatinine [Mass ratio] 29.7 mg/mg Normal [facility] Comment on above: Performed By: #### T 7, CMP, TSH ####[facility] [address] [address]Dr. Grace Abdul TSHon 11-23-2021 TSH 0.469 uIU/mL Normal 0.358-3.740 [facility] Comment on above: Performed By: #### T 7, CMP, TSH ####[facility] [address] [place], [place] [address]Dr. Grace Abdul CBC AUTO DIFFon 11-17-2021 BASO # 0.0 103/ul Normal 0.0-0.[address] [facility] Comment on above: Performed By: #### C VDTBH #### [facility] Laboratory [address] [address] [address] Grace Abdul Basophils/100 WBC (Bld) 0.2 % Normal 0.2-2.[address] [facility] Comment on above: Performed By: #### C VDTBH #### [facility] Laboratory [address] [place] [address] Dr. Grace Abdul EO # 0.1 103/ul Normal 0.0-0.[address] [facility] Comment on above: Performed By: #### C VDTBH #### [facility] Laboratory [address] [place] [address] Dr. Grace Abdul Eosinophils/100 WBC (Bld) 0.9 % Normal 0.9-7.[address] [facility] Comment on above: Performed By: #### C VDTBH #### [facility] Laboratory [address] [place] [address] Dr. Grace Abdul Erythrocyte distribution width (RBC) [Ratio] 12.8 % Normal 11.0-15.[address] [facility] Comment on above: Performed By: #### C VDTBH #### [facility] Laboratory [address] [place] [address] Dr. Grace Abdul Hematocrit (Bld) [Volume fraction] 35.2 % Critically low 36.0-48.[address] [facility] Comment on above: Performed By: #### C VDTBH #### [facility] Laboratory [address] [place] [address] Dr. Grace Abdul Hemoglobin (Bld) [Mass/Vol] 12.1 g/dL Normal 12.0-16.[address] [facility] Comment on above: Performed By: #### C VDTBH #### [facility] Laboratory [address] [place] [address] Dr. Grace Abdul IG # 0.05 10e3/ul Critically high 0.00-0.03 [facility] Comment on above: Performed By: #### C VDTBH #### [facility] Laboratory [address] [place] [address] Dr. Grace Abdul IG % 0.6 % Critically high 0.0-0.5 [facility] Comment on above: Performed By: #### C VDTBH #### [facility] Laboratory [address] [place] [address] Dr. Grace Abdul LYMPH # 0.6 103/ul Critically low 1.2-3.8 [facility] Comment on above: Performed By: #### C VDTBH #### [facility] Laboratory [address] [place] [address] Dr. Grace Abdul Lymphocytes/100 WBC (Bld) 7.4 % Critically low 20.5-60.[address] [facility] Comment on above: Performed By: #### C VDTBH #### [facility] Laboratory [address] [place] [address] Dr. Grace Abdul MANUAL DIFF REQ NO Normal [facility] Comment on above: Performed By: #### C VDTBH #### [facility] Laboratory [address] [place] [address] Dr. Grace Abdul MCH (RBC) [Entitic mass] 31.5 pg Normal 26.7-34.[address] [facility] Comment on above: Performed By: #### C VDTBH #### [facility] Laboratory [address] [place] [address] Dr. Grace Abdul MCHC (RBC) [Mass/Vol] 34.4 g/dL Normal 29.9-35.[address] [facility] Comment on above: Performed By: #### C VDTBH #### [facility] Laboratory [address] [place] [address] Dr. Grace Abdul MCV (RBC) [Entitic vol] 91.7 fL Normal 81.0-99.[address] [facility] Comment on above: Performed By: #### C VDTBH #### [facility] Laboratory [address] [place] [address] Dr. Grace Abdul MONO # 1.0 103/ul Critically high 0.3-0.8 [facility] Comment on above: Performed By: #### C VDTBH #### [facility] Laboratory [address] [place] [address] Dr. Grace Abdul Monocytes/100 WBC (Bld) 12.1 % Critically high 1.7-12.[address] [facility] Comment on above: Performed By: #### C VDTBH #### [facility] Laboratory [address] [place] [address] Dr. Grace Abdul NEUT # 6.3 103/ul Normal 1.4-6.[address] [facility] Comment on above: Performed By: #### C VDTBH #### [facility] Laboratory [address] [place] [address] Dr. Grace Abdul Neutrophils/100 WBC (Bld) 78.8 % Critically high 43.0-75.[address] [facility] Comment on above: Performed By: #### C VDTBH #### [facility] Laboratory [address] [place] [address] Dr. Grace Abdul Platelet mean volume (Bld) [Entitic vol] 9.1 fL Critically low 9.5-13.[address] [facility] Comment on above: Performed By: #### C VDTBH #### [facility] Laboratory [address] [place] [address] Dr. Grace Abdul PLT 281 103/ul Normal 150-[address] [facility] Comment on above: Performed By: #### C VDTBH #### [facility] Laboratory [address] [place] [address] Dr. Grace Abdul RBC 3.84 106/ul Critically low 4.20-5.40 [facility] Comment on above: Performed By: #### C VDTBH #### [facility] Laboratory [address] [place] [address] Dr. Grace Abdul WBC 8.0 103/ul Normal 4.0-11.[address] [facility] Comment on above: Performed By: #### C VDTBH #### [facility] [address] [place] [address] Dr. Grace Abdul MAGNESIUMon 11-17-2021 Magnesium [Mass/Vol] 1.9 mg/dL Normal 1.8-2.4 The [facility] Comment on above: Performed By: #### C VDTBH #### [facility] [address] [place] [address] Dr. Grace Abdul PROF CHEM 8 (BAS METB)on Anion gap [Moles/Vol] 13.9 mmol/L Normal [facility] Comment on above: Performed By: #### C VDTBH #### [facility] [address] [address] [address] Grace Abdul Calcium [Mass/Vol] 8.7 mg/dL Normal 8.5-10.1 The [facility] Comment on above: Performed By: #### C VDTBH #### [facility] [address] [address] [address] Grace Abdul Chloride [Moles/Vol] 101 mmol/L Normal 98-107 The [facility] Comment on above: Performed By: #### C VDTBH #### [facility] [address] [address] [address] Grace Abdul CO2 [Moles/Vol] 24.3 mmol/L Normal 21.0-32.0 The [facility] Comment on above: Performed By: #### C VDTBH #### [facility] [address] [place] [address] Dr. Grace Abdul Creatinine [Mass/Vol] 0.89 mg/dL Normal 0.55-1.02 The [facility] Comment on above: Performed By: #### C VDTBH #### [facility] [address] [address] [address] Grace Abdul EGFR-AF ALGERIAN >60 Normal >=60 The [facility] Comment on above: Performed By: #### C VDTBH #### [facility] [address] [place] [address] Dr. Grace Abdul EGFR-NON AF ALGERIAN >60 Normal >=60 The [facility] Comment on above: Performed By: #### C VDTBH #### [facility] [address] [place] [address] Dr. Grace Abdul Glucose [Mass/Vol] 97 mg/dL Normal 74-106 The [facility] Comment on above: Performed By: #### C VDTBH #### [facility] [address] [address] [address] Grace Abdul Potassium [Moles/Vol] 3.2 mmol/L Critically low 3.5-5.1 The [facility] Comment on above: Performed By: #### C VDTBH #### [facility] [address] [place] [address] Dr. Grace Abdul Sodium [Moles/Vol] 136 mmol/L Normal 136-145 [facility] Comment on above: Performed By: #### C VDTBH #### [facility] [address] [place] [address] Dr. Grace Abdul Urea nitrogen [Mass/Vol] 14.0 mg/dL Normal 7.0-18.[address] [facility] Comment on above: Performed By: #### C VDTBH #### [facility] [address] [place] [address] Dr. Grace Abdul Urea nitrogen/Creatinine [Mass ratio] 15.7 mg/mg Normal [facility] Comment on above: Performed By: #### C VDTBH #### [facility] [address] [place] [address] Dr. Grace Abdul CBC AUTO DIFFon 11-16-2021 BASO # 0.0 103/ul Normal 0.0-0.[address] [facility] Comment on above: Performed By: #### B MP #### [facility] [address] [place] [address] Dr. Grace Abdul Basophils/100 WBC (Bld) 0.2 % Normal 0.2-2.[address] [facility] Comment on above: Performed By: #### B MP #### [facility] [address] [place] [address] Dr. Grace Abdul EO # 0.0 103/ul Normal 0.0-0.[address] [facility] Comment on above: Performed By: #### B MP #### [facility] [address] [place] [address] Dr. Grace Abdul Eosinophils/100 WBC (Bld) 0.5 % Critically low 0.9-7.[address] [facility] Comment on above: Performed By: #### B MP #### [facility] [address] [place] [address] Dr. Grace Abdul Erythrocyte distribution width (RBC) [Ratio] 12.4 % Normal 11.0-15.[address] [facility] Comment on above: Performed By: #### B MP #### [facility] [address] [address] [address] Grace Abdul Hematocrit (Bld) [Volume fraction] 33.6 % Critically low 36.0-48.[address] [facility] Comment on above: Performed By: #### B MP #### [facility] [address] [address] [address] Grace Abdul Hemoglobin (Bld) [Mass/Vol] 11.8 g/dL Critically low 12.0-16.[address] [facility] Comment on above: Performed By: #### B MP #### [facility] [address] [address] [address] Grace Abdul IG # 0.04 10e3/ul Critically high 0.00-0.03 [facility] Comment on above: Performed By: #### B MP #### [facility] [address] [place] [address] Dr. Grace Abdul IG % 0.7 % Critically high 0.0-0.5 [facility] Comment on above: Performed By: #### B MP #### [facility] [address] [address] [address] Grace Abdul LYMPH # 0.7 103/ul Critically low 1.2-3.8 [facility] Comment on above: Performed By: #### B MP #### [facility] [address] [place] [address] Dr. Grace Abdul Lymphocytes/100 WBC (Bld) 11.1 % Critically low 20.5-60.[address] [facility] Comment on above: Performed By: #### B MP #### [facility] [address] [address] [address] Grace Abdul MANUAL DIFF REQ NO Normal [facility] Comment on above: Performed By: #### B MP #### [facility] [address] [address] [address] Grace Abdul MCH (RBC) [Entitic mass] 31.5 pg Normal 26.7-34.[address] [facility] Comment on above: Performed By: #### B MP #### [facility] [address] [place], [place] [id number] Dr. Grace Abdul MCHC (RBC) [Mass/Vol] 35.1 g/dL Normal 29.9-35.2 The [facility] Comment on above: Performed By: #### B MP #### [facility] [address] [place] [address] Dr. Grace Abdul MCV (RBC) [Entitic vol] 89.6 fL Normal 81.0-99.0 The [facility] Comment on above: Performed By: #### B MP #### [facility] [address] [place] [address] Dr. Grace Abdul MONO # 0.9 103/ul Critically high 0.3-0.8 The [facility] Comment on above: Performed By: #### B MP #### [facility] [address] [place] [address] Dr. Grace Abdul Monocytes/100 WBC (Bld) 14.0 % Critically high 1.7-12.0 The [facility] Comment on above: Performed By: #### B MP #### [facility] [address] [place] [address] Dr. Grace Abdul NEUT # 4.5 103/ul Normal 1.4-6.[address] [facility] Comment on above: Performed By: #### B MP #### [facility] [address] [place] [address] Dr. Grace Abdul Neutrophils/100 WBC (Bld) 73.5 % Normal 43.0-75.0 The [facility] Comment on above: Performed By: #### B MP #### [facility] [address] [place] [address] Dr. Grace Abdul Platelet mean volume (Bld) [Entitic vol] 9.3 fL Critically low 9.5-13.5 The [facility] Comment on above: Performed By: #### B MP #### [facility] [address] [place] [address] Dr. Grace Abdul PLT 292 103/ul Normal 150-450 The [facility] Comment on above: Performed By: #### B MP #### [facility] [address] [place] [address] Dr. Grace Abdul RBC 3.75 106/ul Critically low 4.20-5.40 The [facility] Comment on above: Performed By: #### B MP #### [facility] [address] [place] [address] Dr. rGace Abdul WBC 6.1 103/ul Normal 4.0-11.[address] [facility] Comment on above: Performed By: #### B MP #### [facility] [address] [place] [address] Dr. Grace Abdul CULTURE URINEon 11-16-2021 CULTURE URINE Culture Observations : LIGHT GROWTH OF MIXED GENITAL ALANIS. NO POTENTIAL PATHOGENS SEEN. Normal The [facility] Comment on above: Performed By: #### U RCX ####[facility] [id number] [address] Grace Abdul ER URINE PROFILEon Bilirubin Ql (U) Negative Normal NEGATIVE [facility] Comment on above: Performed By: #### C VDTBH #### [facility] [address] [place] [address] Dr. Grace Abdul Clarity (U) CLEAR Normal CLEAR The [facility] Comment on above: Performed By: #### C VDTBH #### [facility] [address] [place] [address] Dr. Grace Abdul Color (U) LT. YELLOW Normal YELLOW The [facility] Comment on above: Performed By: #### C VDTBH #### [facility] [address] [place] [address] Dr. Grace Abdul ERUAly A micrscopic examination will be performed if indicated. Normal The [facility] Comment on above: Performed By: #### C VDTBH #### [facility] [address] [place] [address] Dr. Grace Abdul Glucose Ql (U) Negative Normal NEGATIVE [facility] Comment on above: Performed By: #### C VDTBH #### [facility] [address] [place] [address] Dr. Grace Abdul Hemoglobin Ql (U) SMALL Abnormal NEGATIVE [facility] Comment on above: Performed By: #### C VDTBH #### [facility] [address] [place] [address] Dr. Grace Abdul Ketones Ql (U) 40 mg/dl Abnormal NEGATIVE [facility] Comment on above: Performed By: #### C VDTBH #### [facility] [address] [place] [address] Dr. Grace Abdul LEUKOCYTES SMALL Abnormal NEGATIVE [facility] Comment on above: Performed By: #### C VDTBH #### [facility] [address] [place] [address] Dr. Grace Abdul Nitrite Ql (U) Negative Normal NEGATIVE [facility] Comment on above: Performed By: #### C VDTBH #### [facility] [address] [place] [address] Dr. Grace Abdul pH (U) 7.0 [pH] Normal 5-[address] [facility] Comment on above: Performed By: #### C VDTBH #### [facility] [address] [place] [address] Dr. Grace Abdul SPEC GRAVITY 1.010 Normal 1.005-<=1.025 [facility] Comment on above: Performed By: #### C VDTBH #### [facility] [address] [place] [address] Dr. Grace Abdul UA PROTEIN Negative Normal NEGATIVE/ TRACE The [facility] Comment on above: Performed By: #### C VDTBH #### [facility] [address] [place] [address] Dr. Grace Abdul UR MICRO IND INDICATED Normal [facility] Comment on above: Performed By: #### C VDTBH #### [facility] [address] [place] [address] Dr. Grace Abdul Urobilinogen Qn (U) 0.2 {Ashley'U}/dL Normal 0.2 - 1. [address] [facility] Comment on above: Performed By: #### C VDTBH #### [facility] [address] [place] [address] Dr. Grace Abdul MAGNESIUMon 11-16-2021 Magnesium [Mass/Vol] 1.8 mg/dL Normal 1.8-2.[address] [facility] Comment on above: Performed By: #### C VDTB #### [facility] [address] [place] [address] Dr. Grace Abdul PROF CHEM 8 (BAS METB)on Anion gap [Moles/Vol] 12.7 mmol/L Normal [facility] Comment on above: Performed By: #### B MP #### [facility] [address] [place] [address] Dr. Grace Abdul Calcium [Mass/Vol] 8.3 mg/dL Critically low 8.5-10.1 [facility] Comment on above: Performed By: #### B MP #### [facility] [address] [place] [address] Dr. Grace Abdul CO2 [Moles/Vol] 24.4 mmol/L Normal 21.0-32.0 [facility] Comment on above: Performed By: #### B MP #### [facility] [address] [place] [address] Dr. Grace Abdul Creatinine [Mass/Vol] 1.16 mg/dL Critically high 0.55-1.[address] [facility] Comment on above: Performed By: #### B MP #### [facility] [address] [place] [address] Dr. Grace Abdul EGFR-AF ALGERIAN 54 mL/min/1.73m2 Critically low >=[address] [facility] Comment on above: Performed By: #### B MP #### [facility] [address] [place] [address] Dr. Grace Abdul EGFR-NON AF ALGERIAN 45 mL/min/1.73m2 Critically low >=[address] [facility] Comment on above: Performed By: #### B MP #### [facility] [address] [place] [address] Dr. Grace Abdul Glucose [Mass/Vol] 116 mg/dL Critically high 74-106 [facility] Comment on above: Performed By: #### B MP #### [facility] [address] [address] [address] Grace Abdul Urea nitrogen [Mass/Vol] 20.0 mg/dL Critically high 7.0-18.[address] [facility] Comment on above: Performed By: #### B MP #### [facility] [address] [place] [address] Dr. Grace Abdul Urea nitrogen/Creatinine [Mass ratio] 17.2 mg/mg Normal [facility] Comment on above: Performed By: #### B MP #### [facility] [address] [address] [address] Grace Abdul Anion gap [Moles/Vol] 10.0 mmol/L Normal [facility] Comment on above: Performed By: #### B MP #### [facility] [address] [address] [address] Grace Abdul Calcium [Mass/Vol] 8.8 mg/dL Normal 8.5-10.1 [facility] Comment on above: Performed By: #### B MP #### [facility] [address] [place] [address] Dr. Grace Abdul Chloride [Moles/Vol] 96 mmol/L Critically low 98-[address] [facility] Comment on above: Performed By: #### B MP #### [facility] [address] [address] [address] Grace Abdul CO2 [Moles/Vol] 26.1 mmol/L Normal 21.0-32.0 [facility] Comment on above: Performed By: #### B MP #### [facility] [address] [address] [address] Grace Abdul Creatinine [Mass/Vol] 1.11 mg/dL Critically high 0.55-1.[address] [facility] Comment on above: Performed By: #### B MP #### [facility] [address] [place] [address] Dr. Grace Abdul EGFR-AF ALGERIAN 57 mL/min/1.73m2 Critically low >=60 The [facility] Comment on above: Performed By: #### B MP #### [facility] [address] [place] [address] Dr. Grace Abdlu EGFR-NON AF ALGERIAN 47 mL/min/1.73m2 Critically low >=[address] [facility] Comment on above: Performed By: #### B MP #### [facility] [address] [address] [address] Grace Abdul Glucose [Mass/Vol] 94 mg/dL Normal 74-106 [facility] Comment on above: Performed By: #### B MP #### [facility] [address] [address] [address] Grace Abdul Potassium [Moles/Vol] 3.1 mmol/L Critically low 3.5-5.[address] [facility] Comment on above: Performed By: #### B MP #### [facility] [address] [place] [address] Dr. Grace Abdul Performed By: #### C VDTBH #### [facility] [address] [place] [address] Dr. Grace Abdul Sodium [Moles/Vol] 129 mmol/L Critically low 136-145 [facility] Comment on above: Performed By: #### B MP #### [facility] [address] [address] [address] Grace Abdul Urea nitrogen [Mass/Vol] 16.0 mg/dL Normal 7.0-18.[address] [facility] Comment on above: Performed By: #### B MP #### [facility] [address] [address] [address] Grace Abdul Urea nitrogen/Creatinine [Mass ratio] 14.4 mg/mg Normal [facility] Comment on above: Performed By: #### B MP #### [facility] [address] [address] [address] Grace Abdul Anion gap [Moles/Vol] 12.6 mmol/L [facility] Comment on above: Performed By: #### C VDTBH #### [facility] [address] [address] [address] Grace Abdul Calcium [Mass/Vol] 8.6 mg/dL Normal 8.5-10.1 [facility] Comment on above: Performed By: #### C VDTBH #### [facility] [address] [place] [address] Dr. Grace Abdul Chloride [Moles/Vol] 95 mmol/L Critically low 98-[address] [facility] Comment on above: Performed By: #### B MP #### [facility] [address] [place] [address] Dr. Grace Abdul Performed By: #### C VDTBH #### [facility] [address] [place] [address] Dr. Grace Abdul CO2 [Moles/Vol] 22.5 mmol/L Normal 21.0-32.0 [facility] Comment on above: Performed By: #### C VDTBH #### [facility] [address] [place] [address] Dr. Grace Abdul Creatinine [Mass/Vol] 0.95 mg/dL Normal 0.55-1.[address] [facility] Comment on above: Performed By: #### C VDTBH #### [facility] [address] [place] [address] Dr. Grace Abdul EGFR-AF ALGERIAN >60 Normal >=60 [facility] Comment on above: Performed By: #### C VDTBH #### [facility] [address] [place] [address] Dr. Grace Abdul EGFR-NON AF ALGERIAN 56 mL/min/1.73m2 Critically low >=[address] [facility] Comment on above: Performed By: #### C VDTBH #### [facility] [address] [place] [address] Dr. Grace Abdul Glucose [Mass/Vol] 92 mg/dL Normal 74-106 [facility] Comment on above: Performed By: #### C VDTBH #### [facility] [address] [place] [address] Dr. Grace Abdul Sodium [Moles/Vol] 127 mmol/L Critically low 136-145 [facility] Comment on above: Performed By: #### C VDTBH #### [facility] [address] [place] [address] Dr. Grace Abdul Urea nitrogen [Mass/Vol] 18.0 mg/dL Normal 7.0-18.[address] [facility] Comment on above: Performed By: #### C VDTBH #### [facility] [address] [place] [address] Dr. Grace Abdul Urea nitrogen/Creatinine [Mass ratio] 18.9 mg/mg Normal The [facility] Comment on above: Performed By: #### C VDTBH #### [facility] [address] [place] [address] Dr. Grace Abdul URINE MICROSCOPIC ONLYon BACTERIA TRACE Abnormal NONE SEEN The [facility] Comment on above: Performed By: #### C VDTBH #### [facility] [address] [place] [address] Dr. Grace Abdul Bacteria identified Cx Nom (U) INDICATED Normal The [facility] Comment on above: Performed By: #### C VDTBH #### [facility] [address] [place] [address] Dr. Grace Abdul CAST NONE SEEN Normal NONE SEEN [facility] Comment on above: Performed By: #### C VDTBH #### [facility] [address] [place] [address] Dr. Grace Abdul Crystals LM Nom (Urine sed) NONE SEEN Normal NONE SEEN [facility] Comment on above: Performed By: #### C VDTBH #### [facility] [address] [place] [address] Dr. Grace Abdul Epithelial cells LM Ql (Urine sed) FEW Abnormal NONE SEEN /RARE The [facility] Comment on above: Performed By: #### C VDTBH #### [facility] [address] [place] [address] Dr. Grace Abdul MUCOUS NONE SEEN Normal NONE SEEN The [facility] Comment on above: Performed By: #### C VDTBH #### [facility] [address] [place] [address] Dr. Grace Abdul RBC 2-5 Abnormal 0-2 The [facility] Comment on above: Performed By: #### C VDTBH #### [facility] [address] [place] [address] Dr. Grace Abdul WBC 5-10 Abnormal NONE SEEN The [facility] Comment on above: Performed By: #### C VDTBH #### [facility] [address] [place] [address] Dr. Grace Abdul AMYLASEon 11-15-2021 Amylase [Catalytic activity/Vol] 94 U/L Normal 25-115 The [facility] Comment on above: Performed By: #### C VDTBH #### [facility] [address] [place] [address] Dr. Grace Abdul BNPon 11-15-2021 Natriuretic peptide B (Bld) [Mass/Vol] 357.0 pg/mL Normal <=1,800.0 The [facility] Comment on above: Performed By: #### C VDTBH #### [facility] [address] [place] [address] Dr. Grace Abdul CARDIAC JOIVTA ADMITon 022 CK [Catalytic activity/Vol] 66 U/L Normal 26-192 The [facility] Comment on above: Performed By: #### C VDTBH #### [facility] [address] [place] [address] Dr. Grace Abdul CK.MB [Mass/Vol] 2.19 ng/mL Normal <=3.60 [facility] Comment on above: Performed By: #### C VDTBH #### [facility] [address] [place] [address] Dr. Grace Abdul HSTROP 9.5 pg/mL Normal 4.0-51.3 The [facility] Comment on above: Result Comment: CUT- OFF POINTS HAVE BEEN ESTABLISHED BASED ON THE FOURTH UNIVERSAL DEFINITIONS OF MYOCARDIAL INFARCTION. THE UPPER REFERENCE LIMIT (URL) OF TROPONIN, DEFINED THE 99TH PERCENTILE OF cTnI DISTRIBUTION IN A REFERENCE POPULATION, HAS BEEN CONFIRMED THE DECISION THRESHOLD FOR WA DIAGNOSIS. Performed By: #### C VDTBH #### [facility] [address] [place] [address] Dr. Grace Abdul JOHNNA 73 ng/mL Normal 9-82 [facility] Comment on above: Performed By: #### C VDTBH #### [facility] [facility] [address] [address] [address] Grace Abdul CBC AUTO DIFFon 11-15-2021 BASO # 0.0 103/ul Normal 0.0-0.[address] [facility] Comment on above: Performed By: #### B MP #### [facility] [address] [address] [address] Grace Abdul Basophils/100 WBC (Bld) 0.1 % Critically low 0.2-2.[address] [facility] Comment on above: Performed By: #### B MP #### [facility] [address] [address] [address] Grace Abdul EO # 0.0 103/ul Normal 0.0-0.[address] [facility] Comment on above: Performed By: #### B MP #### [facility] [address] [place] [address] Dr. Grace Abdul Eosinophils/100 WBC (Bld) 0.1 % Critically low 0.9-7.[address] [facility] Comment on above: Performed By: #### B MP #### [facility] [address] [address] [address] Grace Abdul Erythrocyte distribution width (RBC) [Ratio] 11.9 % Normal 11.0-15.[address] [facility] Comment on above: Performed By: #### B MP #### [facility] [address] [place] [address] Dr. Grace Abdul Hematocrit (Bld) [Volume fraction] 36.6 % Normal 36.0-48.[address] [facility] Comment on above: Performed By: #### B MP #### [facility] [address] [place] [address] Dr. Grace Abdul Hemoglobin (Bld) [Mass/Vol] 13.2 g/dL Normal 12.0-16.[address] [facility] Comment on above: Performed By: #### B MP #### [facility] [address] [place] [address] Dr. Grace Abdul IG # 0.05 10e3/ul Critically high 0.00-0.03 [facility] Comment on above: Performed By: #### B MP #### [facility] [address] [address] [address] Grace Abdul IG % 0.7 % Critically high 0.0-0.5 [facility] Comment on above: Performed By: #### B MP #### [facility] [address] [address] [address] Grace Abdul LYMPH # 0.7 103/ul Critically low 1.2-3.8 [facility] Comment on above: Performed By: #### B MP #### [facility] [address] [place] [address] Dr. Grace Abdul Lymphocytes/100 WBC (Bld) 9.8 % Critically low 20.5-60.[address] [facility] Comment on above: Performed By: #### B MP #### [facility] [address] [place] [address] Dr. Grace Abdul MANUAL DIFF REQ NO Normal [facility] Comment on above: Performed By: #### B MP #### [facility] [address] [place] [address] Dr. Grace Abdul MCH (RBC) [Entitic mass] 31.5 pg Normal 26.7-34.[address] [facility] Comment on above: Performed By: #### B MP #### [facility] [address] [place] [address] Dr. Grace Abdul MCHC (RBC) [Mass/Vol] 36.1 g/dL Critically high 29.9-35.2 [facility] Comment on above: Performed By: #### B MP #### [facility] [address] [place] [address] Dr. Grace Abdul MCV (RBC) [Entitic vol] 87.4 fL Normal 81.0-99.0 [facility] Comment on above: Performed By: #### B MP #### [facility] [address] [place] [address] Dr. Grace Abdul MONO # 0.9 103/ul Critically high 0.3-0.8 [facility] Comment on above: Performed By: #### B MP #### [facility] [address] [address] [address] Grace Abdul Monocytes/100 WBC (Bld) 12.4 % Critically high 1.7-12.[address] [facility] Comment on above: Performed By: #### B MP #### [facility] [address] [address] [address] Grace Abdul NEUT # 5.8 103/ul Normal 1.4-6.5 [facility] Comment on above: Performed By: #### B MP #### [facility] [address] [place] [address] Dr. Grace Abdul Neutrophils/100 WBC (Bld) 76.9 % Critically high 43.0-75.0 [facility] Comment on above: Performed By: #### B MP #### [facility] [address] [place] [address] Dr. Grace Abdul Platelet mean volume (Bld) [Entitic vol] 9.0 fL Critically low 9.5-13.[address] [facility] Comment on above: Performed By: #### B MP #### [facility] [address] [place] [address] Dr. Grace Abdul PLT 361 103/ul Normal 150-450 [facility] Comment on above: Performed By: #### B MP #### [facility] [address] [place] [address] Dr. Grace Abdul RBC 4.19 106/ul Critically low 4.20-5.40 [facility] Comment on above: Performed By: #### B MP #### [facility] [address] [place] [address] Dr. Grace Abdul WBC 7.6 103/ul Normal 4.0-11.0 [facility] Comment on above: Performed By: #### B MP #### [facility] [address] [place] [address] Dr. Grace Abdul [facility]23 SARS-CoV-2 (COVID-19) RNA LUISITO+probe Ql (Unsp spec) Not detected Normal NOT DETECTED [facility] Comment on above: Result Comment: When diagnostic [...] for this test is supported by the [place] of [employer] and Human Service's declaration that [...] used). Performed By: #### C VDTBH #### [facility] [address] [place] [address] Dr. Grace Abdul LIPASEon 11-15-2021 Lipase [Catalytic activity/Vol] 178.0 U/L Normal 73.0-393.[address] [facility] Comment on above: Performed By: #### C VDTBH #### [facility] [address] [place] [address] Dr. Grace Abdul PROF 14(COMP METB)on 022 Albumin [Mass/Vol] 4.1 g/dL Normal 3.4-5.0 [facility] Comment on above: Performed By: #### C VDTBH #### [facility] [address] [place] [address] Dr. Grace Abdul Albumin/Globulin [Mass ratio] 1.2 {ratio} Normal [facility] Comment on above: Performed By: #### C VDTBH #### [facility] [address] [place] [address] Dr. Grace Abdul ALP [Catalytic activity/Vol] 63 U/L Normal 46-116 [facility] Comment on above: Performed By: #### C VDTBH #### [facility] [address] [place] [address] Dr. Grace Abdul ALT [Catalytic activity/Vol] 29 U/L Normal 14-[address] [facility] Comment on above: Performed By: #### C VDTBH #### [facility] [address] [place] [address] Dr. Grace Abdul Anion gap [Moles/Vol] 14.8 mmol/L Normal [facility] Comment on above: Performed By: #### C VDTBH #### [facility] [address] [place] [address] Dr. Grace Abdul AST [Catalytic activity/Vol] 25 U/L Normal 15-[address] [facility] Comment on above: Performed By: #### C VDTBH #### [facility] [address] [place] [address] Dr. Grace Abdul Bilirubin [Mass/Vol] 0.6 mg/dL Normal 0.2-1.[address] [facility] Comment on above: Performed By: #### C VDTBH #### [facility] [address] [place] [address] Dr. Grace Abdul Calcium [Mass/Vol] 9.4 mg/dL Normal 8.5-10.1 [facility] Comment on above: Performed By: #### C VDTBH #### [facility] [address] [place] [address] Dr. Grace Abdul Chloride [Moles/Vol] 83 mmol/L Critically low 98-[address] [facility] Comment on above: Performed By: #### C VDTBH #### [facility] [address] [place] [address] Dr. Grace Abdul CO2 [Moles/Vol] 24.4 mmol/L Normal 21.0-32.0 [facility] Comment on above: Performed By: #### C VDTBH #### [facility] [address] [place] [address] Dr. Grace Abdul Creatinine [Mass/Vol] 1.15 mg/dL Critically high 0.55-1.[address] [facility] Comment on above: Performed By: #### C VDTBH #### [facility] [address] [place] [address] Dr. Grace Abdul EGFR-AF ALGERIAN 55 mL/min/1.73m2 Critically low >=[address] [facility] Comment on above: Performed By: #### C VDTBH #### [facility] [address] [address] [address] Grace Abdul EGFR-NON AF ALGERIAN 45 mL/min/1.73m2 Critically low >=[address] [facility] Comment on above: Performed By: #### C VDTBH #### [facility] [address] [place] [address] Dr. Grace Abdul Globulin (S) [Mass/Vol] 3.4 g/dL Normal [facility] Comment on above: Performed By: #### C VDTBH #### [facility] [address] [place] [address] Dr. Grace Abdul Glucose [Mass/Vol] 147 mg/dL Critically high 74-106 [facility] Comment on above: Performed By: #### C VDTBH #### [facility] [address] [place] [address] Dr. Grace Abdul Potassium [Moles/Vol] 3.2 mmol/L Critically low 3.5-5.[address] [facility] Comment on above: Performed By: #### C VDTBH #### [facility] [address] [place] [address] Dr. Grace Abdul Protein [Mass/Vol] 7.5 g/dL Normal 6.4-8.2 [facility] Comment on above: Performed By: #### C VDTBH #### [facility] [address] [place] [address] Dr. Grace Abdul Urea nitrogen/Creatinine [Mass ratio] 21.7 mg/mg Normal [facility] Comment on above: Performed By: #### C VDTBH #### [facility] [address] [place] [address] Dr. Grace Abdul PROF CHEM 8 (BAS METB)on Anion gap [Moles/Vol] 13.6 mmol/L Normal [facility] Comment on above: Performed By: #### C VDTBH #### [facility] [address] [address] [address] Grace Abdul Calcium [Mass/Vol] 8.8 mg/dL Normal 8.5-10.1 [facility] Comment on above: Performed By: #### C VDTBH #### [facility] [address] [address] [address] Grace Abdul Chloride [Moles/Vol] 88 mmol/L Critically low 98-[address] [facility] Comment on above: Performed By: #### C VDTBH #### [facility] [address] [address] [address] Grace Abdul CO2 [Moles/Vol] 21.8 mmol/L Normal 21.0-32.0 [facility] Comment on above: Performed By: #### C VDTBH #### [facility] [address] [place] [address] Dr. Grace Abdul Creatinine [Mass/Vol] 1.11 mg/dL Critically high 0.55-1.[address] [facility] Comment on above: Performed By: #### C VDTBH #### [facility] [address] [address] [address] Grace Abdul EGFR-AF ALGERIAN 57 mL/min/1.73m2 Critically low >=[address] [facility] Comment on above: Performed By: #### C VDTBH #### [facility] [address] [place] [address] Dr. Grace Abdul EGFR-NON AF ALGERIAN 47 mL/min/1.73m2 Critically low >=[address] [facility] Comment on above: Performed By: #### C VDTBH #### [facility] [address] [address] [address] Grace Abdul Glucose [Mass/Vol] 132 mg/dL Critically high 74-106 [facility] Comment on above: Performed By: #### C VDTBH #### [facility] [address] [address] [address] Grace Abdul Potassium [Moles/Vol] 3.4 mmol/L Critically low 3.5-5.[address] [facility] Comment on above: Performed By: #### C VDTBH #### [facility] [address] [place] [address] Dr. Grace Abdul Sodium [Moles/Vol] 120 mmol/L Critically low 136-145 Th e [facility] Comment on above: Result Comment: Test Repeated. Critical Value Verified Performed By: #### C VDTBH #### [facility] [address] [place] [address] Dr. Grace Abdul Urea nitrogen [Mass/Vol] 25.0 mg/dL Critically high 7.0-18.[address] [facility] Comment on above: Performed By: #### C VDTBH #### [facility] [address] [place] [address] Dr. Grace Abdul Urea nitrogen/Creatinine [Mass ratio] 22.5 mg/mg Normal [facility] Comment on above: Performed By: #### C VDTBH #### [facility] [address] [place] [address] Dr. Grace Abdul PROTIMEon 11-15-2021 INR Coag (PPP) [Relative time] 0.94 {INR} Normal [facility] Comment on above: Performed By: #### C VDTBH #### [facility] [address] [place] [address] Dr. Grace Abdul INR GUIDELINES SEE BELOW Normal [facility] Comment on above: Result Comment: DURAN RED INR: 2.0 - 3.0 CONDITIONS NOT LISTED BELOW 2.5 - 3.5 FOR PROSTHETIC HEART VALVE REPLACEMENT 2.5 - 3.5 RECURRENT THROMBOSIS Performed By: #### C VDTBH #### [facility] [address] [place] [address] Dr. Grace Abdul PT Coag (PPP) [Time] 10.2 s Normal 9.0-11.[address] [facility] Comment on above: Performed By: #### C VDTBH #### [facility] [address] [place] [address] Dr. Grace Abdul XR ABD FLAT UP_PA [...] JARET LINARES Date: 2021-11-15 13:56 Normal [facility] BNPon 11-11-2021 Natriuretic peptide B (Bld) [Mass/Vol] 546.0 pg/mL Normal <=1,800.0 [facility] Comment on above: Performed By: #### C MP, TSH, HSTROPN, BNP ####[facility] [id number] [place], [place] [id number]. Grace Abdul CBC AUTO DIFFon 11-11-2021 BASO # 0.0 103/ul Normal 0.0-0.[address] [facility] Comment on above: Performed By: #### C BC #### [facility] [address] [address] [address] Grace Abdul Basophils/100 WBC (Bld) 0.3 % Normal 0.2-2.[address] [facility] Comment on above: Performed By: #### C BC #### [facility] [address] [address] [address] Grace Abdul EO # 0.0 103/ul Normal 0.0-0.7 [facility] Comment on above: Performed By: #### C BC #### [facility] [address] [address] [address] Grace Abdul Eosinophils/100 WBC (Bld) 0.5 % Critically low 0.9-7.0 [facility] Comment on above: Performed By: #### C BC #### [facility] [address] [address] [address] Grace Abdul Erythrocyte distribution width (RBC) [Ratio] 12.9 % Normal 11.0-15.[address] [facility] Comment on above: Performed By: #### C BC #### [facility] [address] [address] [address] Grace Abdul Hematocrit (Bld) [Volume fraction] 36.1 % Normal 36.0-48.[address] [facility] Comment on above: Performed By: #### C BC #### [facility] [address] [address] [address] Grace Abdul Hemoglobin (Bld) [Mass/Vol] 12.3 g/dL Normal 12.0-16.[address] [facility] Comment on above: Performed By: #### C BC #### [facility] [address] [place] [address] Dr. Grace Abdul IG # 0.01 10e3/ul Normal 0.00-0.[address] [facility] Comment on above: Performed By: #### C BC #### [facility] [address] [place] [address] Dr. Grace Abdul IG % 0.3 % Normal 0.0-0.[address] [facility] Comment on above: Performed By: #### C BC #### [facility] [address] [place] [address] Dr. Grace Abdul LYMPH # 0.6 103/ul Critically low 1.2-3.8 [facility] Comment on above: Performed By: #### C BC #### [facility] [address] [place] [address] Dr. Grace Abdul Lymphocytes/100 WBC (Bld) 14.8 % Critically low 20.5-60.[address] [facility] Comment on above: Performed By: #### C BC #### [facility] [address] [place] [address] Dr. Grace Abdul MANUAL DIFF REQ NO Normal [facility] Comment on above: Performed By: #### C BC #### [facility] [address] [place] [address] Dr. Grace Abdul MCH (RBC) [Entitic mass] 31.5 pg Normal 26.7-34.[address] [facility] Comment on above: Performed By: #### C BC #### [facility] [address] [address] [address] Grace Abdul MCHC (RBC) [Mass/Vol] 34.1 g/dL Normal 29.9-35.[address] [facility] Comment on above: Performed By: #### C BC #### [facility] [address] [address] [address] Grace Abdul MCV (RBC) [Entitic vol] 92.6 fL Normal 81.0-99.[address] [facility] Comment on above: Performed By: #### C BC #### [facility] [address] [place] [address] Dr. Grace Abdul MONO # 0.5 103/ul Normal 0.3-0.[address] [facility] Comment on above: Performed By: #### C BC #### [facility] [address] [place] [address] Dr. Grace Abdul Monocytes/100 WBC (Bld) 13.5 % Critically high 1.7-12.[address] [facility] Comment on above: Performed By: #### C BC #### [facility] [address] [place] [address] Dr. Grace Abdul NEUT # 2.7 103/ul Normal 1.4-6.[address] [facility] Comment on above: Performed By: #### C BC #### [facility] [address] [place] [address] Dr. Grace Abdul Neutrophils/100 WBC (Bld) 70.6 % Normal 43.0-75.0 [facility] Comment on above: Performed By: #### C BC #### [facility] [address] [place] [address] Dr. Grace Abdul Platelet mean volume (Bld) [Entitic vol] 9.2 fL Critically low 9.5-13.[address] [facility] Comment on above: Performed By: #### C BC #### [facility] [address] [place] [address] Dr. Grace Abdul PLT 279 103/ul Normal 150-450 [facility] Comment on above: Performed By: #### C BC #### [facility] [address] [place] [address] Dr. Grace Abdul RBC 3.90 106/ul Critically low 4.20-5.40 [facility] Comment on above: Performed By: #### C BC #### [facility] [address] [place] [address] Dr. Grace Abdul WBC 3.9 103/ul Critically low 4.0-11.0 [facility] Comment on above: Performed By: #### C BC #### [facility] [address] [place] [address] Dr. Grace Abdul PROF 14(COMP METB)on 022 Albumin [Mass/Vol] 3.3 g/dL Critically low 3.4-5.0 [facility] Comment on above: Performed By: #### C MP, TSH, HSTROPN, BNP #### [facility] [address] [place] [address] Dr. Grace Abdul Albumin/Globulin [Mass ratio] 1.2 {ratio} Normal [facility] Comment on above: Performed By: #### C MP, TSH, HSTROPN, BNP #### [facility] [address] [place] [address] Dr. Grace Abdul ALP [Catalytic activity/Vol] 60 U/L Normal 46-[address] [facility] Comment on above: Performed By: #### C MP, TSH, HSTROPN, BNP #### [facility] [address] [place] [address] Dr. Grace Abdul ALT [Catalytic activity/Vol] 26 U/L Normal 14-[address] [facility] Comment on above: Performed By: #### C MP, TSH, HSTROPN, BNP #### [facility] [address] [place] [address] Dr. Grace Abdul Anion gap [Moles/Vol] 14.8 mmol/L Normal [facility] Comment on above: Performed By: #### C MP, TSH, HSTROPN, BNP #### [facility] [address] [place] [address] Dr. Grace Abdul AST [Catalytic activity/Vol] 20 U/L Normal 15-[address] [facility] Comment on above: Performed By: #### C MP, TSH, HSTROPN, BNP #### [facility] [address] [address] [address] Grace Abdul Bilirubin [Mass/Vol] 0.3 mg/dL Normal 0.2-1.[address] [facility] Comment on above: Performed By: #### C MP, TSH, HSTROPN, BNP #### [facility] [address] [address] [address] Grace Abdul Calcium [Mass/Vol] 8.2 mg/dL Critically low 8.5-10.1 [facility] Comment on above: Performed By: #### C MP, TSH, HSTROPN, BNP #### [facility] [address] [place] [address] Dr. Grace Abdul Chloride [Moles/Vol] 100 mmol/L Normal 98-[address] [facility] Comment on above: Performed By: #### C MP, TSH, HSTROPN, BNP #### [facility] [address] [place] [address] Dr. Grace Abdul CO2 [Moles/Vol] 23.8 mmol/L Normal 21.0-32.0 [facility] Comment on above: Performed By: #### C MP, TSH, HSTROPN, BNP #### [facility] [address] [place] [address] Dr. Grace Abdul Creatinine [Mass/Vol] 1.27 mg/dL Critically high 0.55-1.[address] [facility] Comment on above: Performed By: #### C MP, TSH, HSTROPN, BNP #### [facility] [address] [address] [address] Grace Abdul EGFR-AF ALGERIAN 49 mL/min/1.73m2 Critically low >=60 [facility] Comment on above: Performed By: #### C MP, TSH, HSTROPN, BNP #### [facility] [address] [address] [address] Grace Abdul EGFR-NON AF ALGERIAN 40 mL/min/1.73m2 Critically low >=[address] [facility] Comment on above: Performed By: #### C MP, TSH, HSTROPN, BNP #### [facility] [address] [place] [address] Dr. Grace Abdul Globulin (S) [Mass/Vol] 2.7 g/dL Normal [facility] Comment on above: Performed By: #### C MP, TSH, HSTROPN, BNP #### [facility] [address] [place] [address] Dr. Grace Abdul Glucose [Mass/Vol] 116 mg/dL Critically high 74-106 [facility] Comment on above: Performed By: #### C MP, TSH, HSTROPN, BNP #### [facility] [address] [place] [address] Dr. Grace Abdul Potassium [Moles/Vol] 3.6 mmol/L Normal 3.5-5.[address] [facility] Comment on above: Performed By: #### C MP, TSH, HSTROPN, BNP #### [facility] [address] [place] [address] Dr. Grace Abdul Protein [Mass/Vol] 6.0 g/dL Critically low 6.4-8.2 [facility] Comment on above: Performed By: #### C MP, TSH, HSTROPN, BNP #### [facility] [address] [place] [address] Dr. Grace Abdul Sodium [Moles/Vol] 135 mmol/L Critically low 136-145 [facility] Comment on above: Performed By: #### C MP, TSH, HSTROPN, BNP #### [facility] [address] [place] [address] Dr. Grace Abdul Urea nitrogen [Mass/Vol] 25.0 mg/dL Critically high 7.0-18.[address] [facility] Comment on above: Performed By: #### C MP, TSH, HSTROPN, BNP #### [facility] [address] [place] [address] Dr. Grace Abdul Urea nitrogen/Creatinine [Mass ratio] 19.7 mg/mg Normal [facility] Comment on above: Performed By: #### C MP, TSH, HSTROPN, BNP #### [facility] [address] [place] [address] Dr. Grace Abdul PROTIMEon 11-11-2021 INR Coag (PPP) [Relative time] 0.95 {INR} Normal [facility] Comment on above: Performed By: #### B MP #### [facility] [address] [place] [address] Dr. Grace Abdlu INR GUIDELINES SEE BELOW Normal [facility] Comment on above: Result Comment: DURAN RED INR: 2.0 - 3.0 CONDITIONS NOT LISTED BELOW 2.5 - 3.5 FOR PROSTHETIC HEART VALVE REPLACEMENT 2.5 - 3.5 RECURRENT THROMBOSIS Performed By: #### B MP #### [facility] [address] [place] [address] Dr. Grace Abdul PT Coag (PPP) [Time] 10.3 s Normal 9.0-11.[address] [facility] Comment on above: Performed By: #### B MP #### [facility] [address] [place] [address] Dr. Grace Abdul PTTon 11-11-2021 aPTT Coag (Bld) [Time] 21.3 s Critically low 22.3-36.[address] [facility] Comment on above: Performed By: #### B MP #### [facility] [address] [place] [address] Dr. Grace Abdul TROPONIN, HIGH SENSITIVITYon 11-11-2021 HSTROP 6.5 pg/mL Normal 4.0-51.[address] [facility] Comment on above: Result Comment: CUT- OFF POINTS HAVE BEEN ESTABLISHED BASED ON THE FOURTH UNIVERSAL DEFINITIONS OF MYOCARDIAL INFARCTION. THE UPPER REFERENCE LIMIT (URL) OF TROPONIN, DEFINED THE 99TH PERCENTILE OF cTnI DISTRIBUTION IN A REFERENCE POPULATION, HAS BEEN CONFIRMED THE DECISION THRESHOLD FOR WA DIAGNOSIS. Performed By: #### C MP, TSH, HSTROPN, BNP #### [facility] [address] [address] [address] Grace Abdul TSHon 11-11-2021 TSH 2.140 uIU/mL Normal 0.358-3.740 [facility] Comment on above: Performed By: #### C MP, TSH, HSTROPN, BNP ####[facility] [address] [place], [place] [address]WeDr. Grace Abdul XR CHEST 1 Von 11-11-2021 [...] KRANTHI CONNORS Date: 2021-11-11 13:34 Normal [facility] CARDIAC JOVITA ADMITon 022 CK [Catalytic activity/Vol] 89 U/L Normal 26-[address] [facility] Comment on above: Performed By: #### C VDTBH #### [facility] [address] [place], [place] [address] Dr. Grace Abdul CK.MB [Mass/Vol] 1.92 ng/mL Normal <=3.60 [facility] Comment on above: Performed By: #### C VDTBH #### [facility] [address] [place], [place] [address] Dr. Grace Abdul HSTROP 5.7 pg/mL Normal 4.0-51.[address] [facility] Comment on above: Result Comment: CUT- OFF POINTS HAVE BEEN ESTABLISHED BASED ON THE FOURTH UNIVERSAL DEFINITIONS OF MYOCARDIAL INFARCTION. THE UPPER REFERENCE LIMIT (URL) OF TROPONIN, DEFINED THE 99TH PERCENTILE OF cTnI DISTRIBUTION IN A REFERENCE POPULATION, HAS BEEN CONFIRMED THE DECISION THRESHOLD FOR WA DIAGNOSIS. Performed By: #### C VDTBH #### [facility] [address] [place], [place] [address] Dr. Grace Abdul JOHNNA 86 ng/mL Critically high 9-82 [facility] Comment on above: Performed By: #### C VDTBH #### [facility] [address] [place] [address] Dr. Grace Abdul CBC AUTO DIFFon 09-13-2021 BASO # 0.0 103/ul Normal 0.0-0.[address] [facility] Comment on above: Performed By: #### C VDTBH #### [facility] [address] [place] [address] Dr. Grace Abdul Basophils/100 WBC (Bld) 0.5 % Normal 0.2-2.[address] [facility] Comment on above: Performed By: #### C VDTBH #### [facility] [address] [place] [address] Dr. Grace Abdul EO # 0.0 103/ul Normal 0.0-0.[address] [facility] Comment on above: Performed By: #### C VDTBH #### [facility] [address] [place] [address] Dr. Grace Abdul Eosinophils/100 WBC (Bld) 0.7 % Critically low 0.9-7.[address] [facility] Comment on above: Performed By: #### C VDTBH #### [facility] [address] [place] [address] Dr. Grace Abdul Erythrocyte distribution width (RBC) [Ratio] 13.2 % Normal 11.0-15.[address] [facility] Comment on above: Performed By: #### C VDTBH #### [facility] [address] [place] [address] Dr. Grace Abdul Hematocrit (Bld) [Volume fraction] 34.8 % Critically low 36.0-48.[address] [facility] Comment on above: Performed By: #### C VDTBH #### [facility] [address] [place] [address] Dr. Grace Abdul Hemoglobin (Bld) [Mass/Vol] 11.9 g/dL Critically low 12.0-16.[address] [facility] Comment on above: Performed By: #### C VDTBH #### [facility] [address] [place] [address] Dr. Grace Abdul IG # 0.01 10e3/ul Normal 0.00-0.[address] [facility] Comment on above: Performed By: #### C VDTBH #### [facility] [address] [place] [address] Dr. Grace Abdul IG % 0.2 % Normal 0.0-0.[address] [facility] Comment on above: Performed By: #### C VDTBH #### [facility] [address] [place] [address] Dr. Grace Abdul LYMPH # 0.6 103/ul Critically low 1.2-3.8 [facility] Comment on above: Performed By: #### C VDTBH #### [facility] [address] [place] [address] Dr. Grace Abdul Lymphocytes/100 WBC (Bld) 14.2 % Critically low 20.5-60.[address] [facility] Comment on above: Performed By: #### C VDTBH #### [facility] [address] [place] [address] Dr. Grace Abdul MANUAL DIFF REQ NO Normal [facility] Comment on above: Performed By: #### C VDTBH #### [facility] [address] [place] [address] Dr. Grace Abdul MCH (RBC) [Entitic mass] 31.5 pg Normal 26.7-34.[address] [facility] Comment on above: Performed By: #### C VDTBH #### [facility] [address] [place] [address] Dr. Grace Abdul MCHC (RBC) [Mass/Vol] 34.2 g/dL Normal 29.9-35.[address] [facility] Comment on above: Performed By: #### C VDTBH #### [facility] [address] [place] [address] Dr. Grace Abdul MCV (RBC) [Entitic vol] 92.1 fL Normal 81.0-99.[address] [facility] Comment on above: Performed By: #### C VDTBH #### [facility] [address] [place] [address] Dr. Grace Abdul MONO # 0.7 103/ul Normal 0.3-0.[address] [facility] Comment on above: Performed By: #### C VDTBH #### [facility] [address] [place] [address] Dr. Grace Abdul Monocytes/100 WBC (Bld) 15.6 % Critically high 1.7-12.[address] [facility] Comment on above: Performed By: #### C VDTBH #### [facility] [address] [place] [address] Dr. Grace Abdul NEUT # 3.0 103/ul Normal 1.4-6.[address] [facility] Comment on above: Performed By: #### C VDTBH #### [facility] [address] [place] [address] Dr. Grace Abdul Neutrophils/100 WBC (Bld) 68.8 % Normal 43.0-75.[address] [facility] Comment on above: Performed By: #### C VDTBH #### [facility] [address] [place] [address] Dr. Grace Abdul Platelet mean volume (Bld) [Entitic vol] 9.5 fL Normal 9.5-13.[address] [facility] Comment on above: Performed By: #### C VDTBH #### [facility] [address] [place] [address] Dr. Grace Abdul PLT 303 103/ul Normal 150-450 [facility] Comment on above: Performed By: #### C VDTBH #### [facility] [address] [place] [address] Dr. Grace Abdul RBC 3.78 106/ul Critically low 4.20-5.40 [facility] Comment on above: Performed By: #### C VDTBH #### [facility] [address] [place] [address] Dr. Grace Abdul WBC 4.4 103/ul Normal 4.0-11.[address] [facility] Comment on above: Performed By: #### C VDTBH #### [facility] [address] [place] [address] HEAD WO CONon [...] KRANTHI CONNORS Date: 2021-09-13 13:24 Normal [facility] Covid-19 PCR ([facility])on 08-22 SARS-CoV-2 (COVID-19) RNA LUISITO+probe Ql (Unsp spec) Not detected Normal NOT DETECTED [facility] Comment on above: Result Comment: When diagnostic [...] for this test is supported by the [place] of [employer] and Human Service's declaration that [...] longer be used). Performed By: #### [facility] #### [facility] [address] [address] [address] Grace Abdul ER URINE PROFILEon 2 Bilirubin Ql (U) Negative Normal NEGATIVE [facility] Comment on above: Performed By: #### B MP #### [facility] [address] [place] [address] Dr. Grace Abdul Clarity (U) CLEAR Normal CLEAR [facility] Comment on above: Performed By: #### B MP #### [facility] [address] [place] [address] Dr. Grace Abdul Color (U) LT. YELLOW Normal YELLOW [facility] Comment on above: Performed By: #### B MP #### [facility] [address] [place] [address] Dr. Grace HIGGINS A micrscopic examination will be performed if indicated. Normal [facility] Comment on above: Performed By: #### B MP #### [facility] [address] [place] [address] Dr. Grace Abdul Glucose Ql (U) Negative Normal NEGATIVE [facility] Comment on above: Performed By: #### B MP #### [facility] [address] [place] [address] Dr. Grace Abdul Hemoglobin Ql (U) Negative Normal NEGATIVE [facility] Comment on above: Performed By: #### B MP #### [facility] [address] [place] [address] Dr. Grace Abdul Ketones Ql (U) TRACE Abnormal NEGATIVE [facility] Comment on above: Performed By: #### B MP #### [facility] [address] [place] [address] Dr. Grace Adbul LEUKOCYTES TRACE Abnormal NEGATIVE [facility] Comment on above: Performed By: #### B MP #### [facility] [address] [place] [address] Dr. Grace Abdul Nitrite Ql (U) Negative Normal NEGATIVE [facility] Comment on above: Performed By: #### B MP #### [facility] [address] [place] [address] Dr. Grace Abdul pH (U) 8.0 [pH] Normal 5-9 [facility] Comment on above: Performed By: #### B MP #### [facility] [address] [place] [address] Dr. Grace Abdul SPEC GRAVITY 1.015 Normal 1.005-<=1.025 [facility] Comment on above: Performed By: #### B MP #### [facility] [address] [place] [address] Dr. Grace Abdul UA PROTEIN Negative Normal NEGATIVE/ TRACE [facility] Comment on above: Performed By: #### B MP #### [facility] [address] [place] [address] Dr. Grace Abdul UR MICRO IND INDICATED Normal [facility] Comment on above: Performed By: #### B MP #### [facility] [address] [place] [address] Dr. Grace Abdul Urobilinogen Qn (U) 0.2 {Ashley'U}/dL Normal 0.2 - 1. [address] [facility] Comment on above: Performed By: #### B MP #### [facility] [address] [place] [address] Dr. Grace Abdul PROF 14(COMP METB)on 022 Albumin [Mass/Vol] 3.8 g/dL Normal 3.4-5.0 [facility] Comment on above: Performed By: #### C VDTBH #### [facility] [address] [place] [address] Dr. Grace Abdul Albumin/Globulin [Mass ratio] 1.4 {ratio} Normal [facility] Comment on above: Performed By: #### C VDTBH #### [facility] [address] [place] [address] Dr. Grace Abdul ALP [Catalytic activity/Vol] 53 U/L Normal 46-116 [facility] Comment on above: Performed By: #### C VDTBH #### [facility] [address] [place] [address] Dr. Grace Abdul ALT [Catalytic activity/Vol] 20 U/L Normal 14-59 [facility] Comment on above: Performed By: #### C VDTBH #### [facility] [address] [place] [address] Dr. Grace Abdul Anion gap [Moles/Vol] 12.0 mmol/L Normal [facility] Comment on above: Performed By: #### C VDTBH #### [facility] [address] [place] [address] Dr. Grace Abdul AST [Catalytic activity/Vol] 18 U/L Normal 15-[address] [facility] Comment on above: Performed By: #### C VDTBH #### [facility] [address] [place] [address] Dr. Grace Abdul Bilirubin [Mass/Vol] 0.4 mg/dL Normal 0.2-1.[address] [facility] Comment on above: Performed By: #### C VDTBH #### [facility] [address] [place] [address] Dr. Grace Abdul Calcium [Mass/Vol] 9.5 mg/dL Normal 8.5-10.1 [facility] Comment on above: Performed By: #### C VDTBH #### [facility] [address] [place] [address] Dr. Grace Abdul Chloride [Moles/Vol] 99 mmol/L Normal 98-[address] [facility] Comment on above: Performed By: #### C VDTBH #### [facility] [address] [place] [address] Dr. Grace Abdul CO2 [Moles/Vol] 28.1 mmol/L Normal 21.0-32.0 [facility] Comment on above: Performed By: #### C VDTBH #### [facility] [address] [place] [address] Dr. Grace Abdul Creatinine [Mass/Vol] 1.25 mg/dL Critically high 0.55-1.[address] [facility] Comment on above: Performed By: #### C VDTBH #### [facility] [address] [place] [address] Dr. Grace Abdul EGFR-AF ALGERIAN 50 mL/min/1.73m2 Critically low >=60 [facility] Comment on above: Performed By: #### C VDTBH #### [facility] [address] [place] [address] Dr. Grace Abdul EGFR-NON AF ALGERIAN 41 mL/min/1.73m2 Critically low >=[address] [facility] Comment on above: Performed By: #### C VDTBH #### [facility] [address] [address] [address] Grace Abdul Globulin (S) [Mass/Vol] 2.7 g/dL Normal [facility] Comment on above: Performed By: #### C VDTBH #### [facility] [address] [address] [address] Grace Abdul Glucose [Mass/Vol] 131 mg/dL Critically high 74-106 [facility] Comment on above: Performed By: #### C VDTBH #### [facility] [address] [place] [address] Dr. Grace Abdul Potassium [Moles/Vol] 4.1 mmol/L Normal 3.5-5.[address] [facility] Comment on above: Performed By: #### C VDTBH #### [facility] [address] [place] [address] Dr. Grace Abdul Protein [Mass/Vol] 6.5 g/dL Normal 6.4-8.2 [facility] Comment on above: Performed By: #### C VDTBH #### [facility] [address] [place] [address] Dr. Grace Abdul Sodium [Moles/Vol] 135 mmol/L Critically low 136-145 [facility] Comment on above: Performed By: #### C VDTBH #### [facility] [address] [place] [address] Dr. Grace Abdul Urea nitrogen [Mass/Vol] 33.0 mg/dL Critically high 7.0-18.[address] [facility] Comment on above: Performed By: #### C VDTBH #### [facility] [address] [place] [address] Dr. Grace Abdul Urea nitrogen/Creatinine [Mass ratio] 26.4 mg/mg Normal [facility] Comment on above: Performed By: #### C VDTBH #### [facility] [address] [place] [address] Dr. Grace Abdul URINE MICROSCOPIC ONLYon BACTERIA NONE SEEN Normal NONE SEEN [facility] Comment on above: Performed By: #### C BC #### [facility] [address] [place] [address] Dr. Grace Abdul Bacteria identified Cx Nom (U) NOT INDICATED Normal [facility] Comment on above: Performed By: #### C BC #### [facility] [address] [place] [address] Dr. Grace Abdul CAST NONE SEEN Normal NONE SEEN [facility] Comment on above: Performed By: #### C BC #### [facility] [address] [place] [address] Dr. Grace Abdul Crystals LM Nom (Urine sed) NONE SEEN Normal NONE SEEN [facility] Comment on above: Performed By: #### C BC #### [facility] [address] [place] [address] Dr. Grace Abdul Epithelial cells LM Ql (Urine sed) FEW Abnormal NONE SEEN /RARE [facility] Comment on above: Performed By: #### C BC #### [facility] [address] [place] [address] Dr. Grace Abdul MUCOUS NONE SEEN Normal NONE SEEN [facility] Comment on above: Performed By: #### C BC #### [facility] [address] [place] [address] Dr. Grace Abdul RBC 0-2 Normal 0-2 [facility] Comment on above: Performed By: #### C BC #### [facility] [address] [place] [address] Dr. Grace Abdul WBC 0-2 Abnormal NONE SEEN The [facility] Comment on above: Performed By: #### C BC #### [facility] [address] [place] [address] Dr. Grace Abdul XR CHEST 1 Von [...] new since prior study. Electronically authenticated by: KRANTIH CONNORS Date: 2021-09-13 13:[address] [facility] CERV SP W/OBLS/FLEX/EXT 6 OR >on 12-12-2020 CERV SP W/OBLS/FLEX/EXT 6 OR > STUDY: CERV SP W/OBLS/FLEX/EXT 6 OR >; 12/12/2020 9:40 am INDICATION: NECK PAIN. COMPARISON: None. ACCESSION NUMBER(S): [id number] ORDERING CLINICIAN: Aiden Younger TECHNIQUE: AP, lateral, [...] findings. Dense left carotid artery calcifications. Normal [facility] Vital Signs Date Time Vital Sign Value Performing Clinician Aimee pollock 12-06-2023 11:32-0400 Body height 147.3 cm Armando Morales [employer] Work Phone: [facility] [employer] 12-06-2023 11:32-0400 Body mass index (BMI) [Ratio] 34.28 kg/m2 Armando Morales [employer] Work Phone: [facility] [employer] 12-06-2023 11:32-0400 Body weight 74.39 kg Armando Pattersoner [employer] Phone: [facility] [employer] 12-06-2023 11:32-0400 Diastolic blood pressure 82 mm[Hg] Armando Morales DO Work Phone: [facility] 12-06-2023 11:32-0400 Systolic blood pressure 142 mm[Hg] Armando Morales DO Work Phone: [facility] 09-21-2022 12:51-0400 Diastolic blood pressure 60 mm[Hg] Carolyn Vanegas MD Work Phone: [facility] 09-21-2022 12:51-0400 Heart rate 67 /min Carolyn Vanegas MD Work Phone: [facility] 09-21-2022 12:51-0400 Systolic blood pressure 153 mm[Hg] Carolyn Vanegas MD Work Phone: [facility] 05-14-2022 14:24-0400 Diastolic blood pressure 87 mm[Hg] Marty Dozier DO Work Phone: [facility] 05-14-2022 14:24-0400 Heart rate 72 /min Marty Dozier DO Work Phone: [facility] 05-14-2022 14:24-0400 Systolic blood pressure 158 mm[Hg] Marty Dozeir DO Work Phone: [facility] 05-14-2022 14:22-0400 Body height 152.4 cm Marty Dozier DO Work Phone: [facility] 05-14-2022 14:22-0400 Body weight 76.39 kg Marty Dozier DO Work Phone: [facility] 05-14-2022 14:22-0400 SaO2% (BldA) [Mass fraction] 99 % Marty Galavizis DO Work Phone: [facility] Encounters Encounter Date Encounter Type Care Provider Facility Start: 01-16-2024 End: 01-16-2024 ambulatory Lyn Quiñones MD Facility:[facility] Start: 12-06-2023 End: 12-06-2023 Patient encounter procedure Armando Morales DO Work Phone: [facility] Comment on above: Encounter for gyneco logical examination without abnormal finding; Encounter for Papanicolaou smear of vagina; Breast cancer screening by mammogram Start: 12-06-2023 End: 12-06-2023 Patient encounter status Armando Morales DO Work Phone: [facility] Start: 12-06-2023 End: 12-06-2023 ambulatory ARMANDO MORALES Not Available Start: 09-26-2023 End: 09-26-2023 ambulatory Lyn Quiñones MD Facility:[facility] Start: 09-12-2023 End: 09-12-2023 ambulatory Lyn Quiñones MD Facility:[facility] Start: 08-18-2023 End: 08-18-2023 ambulatory Galina Rogers Facility:[facility] Start: 08-08-2023 End: 08-08-2023 ambulatory COLETTE MATOS Not Available Start: 06-06-2023 End: 06-06-2023 ambulatory Lyn Quiñones MD Facility:[facility] [facility] Start: 05-23-2023 End: 05-23-2023 ambulatory Lyn Quiñones MD Facility:[facility] Start: 09-21-2022 End: 09-21-2022 ambulatory GALINA ROGERS Facility:[facility] Start: 09-21-2022 End: 09-21-2022 Patient encounter procedure Carolyn Vanegas MD Work Phone: Neurosurgery Comment on above: Obesity, Class I, BM I 30-34.9 (Primary Dx); Spinal stenosis, lumbar region with neurogenic claudication Start: 08-19-2022 Chart abstracting None (Historical) Neurology Start: 07-22-2022 ambulatory PORSHA BARAJASMICHRISTY . Facility:[facility] Start: 07-16-2022 End: 07-17-[address] GALINA ROGERS . Facility:[facility] Start: 06-22-2022 End: 06-22-2022 ambulatory NAROSMANIRANATH LAKSHMIPATHAshlie . Facility:[facility] Start: 06-15-2022 End: 06-16-2022 ambulatory NARENDRANATH LAKSHMIPATHY . Facility:[facility] Start: 06-10-[address] GALINA ROGERS . Facili ty:[facility] Start: 06-01-2022 End: 06-01-2022 ambulatory PORSHA BARAJASMIPATHAshlie . 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 Facility:[facility] Start: 04-13-2022 End: 04-13-2022 ambulatory [...] 09-12-2017 End: 09-13-2017 Patient encounter DEFAULT PHYSICIAN Facility:[facility] Plan of Treatment Date Care Activity Detail Author Start: 12-10-2025 End: 12-10-2025 Patient encounter procedure 12/10/2025 11:30 AM EDT Office Visit [facility] [address] [place] [address] Armando Morales, DO [address] [place] [address] [facility] Start: 10-23-2023 Influenza vaccination Influenza Vacc ine (#1) [facility] Start: 10-22-2022 Influenza vaccination INFLUENZA (#1) [facility] Start: 04-11-2022 COVID-19 VACCINE (6 - Moderna series) COVID-19 VACCINE (6 - Moderna series) [facility] Start: 02-21-2022 ADVANCE DIRECTIVE DISCUSSION ADVANCE DIRECTIVE DISCUSSION [facility] Start: 02-21-2022 DEPRESSION ASSESSMENT DEPRESSION ASS ESSMENT [facility] Start: 11-12-2017 Pneumococcal Vaccine : 65+ Years (2 of 2 - PPSV23 or PCV20) Pneumococcal Vaccine: 65+ Years (2 of 2 - PPSV23 or PCV20) [facility] Start: 11-12-2017 PNEUMOCOCCAL: 65+ (2 - PPSV23 if available, else PCV20) PNEUMOCOCCAL: 65+ (2 - PPSV23 if available, else PCV20) [facility] Start: 11-12-2017 PNEUMOCOCCAL: 65+ (2 - PPSV23 or PCV20) PNEUMOCOCCAL: 65+ (2 - PPSV23 or PCV20) [facility] Start: 07-22-2017 SHINGRIX VACCINE (2 of 3) SHINGRIX VACCINE (2 of 3) [facility] Start: 04-30-2004 BONE DENSITY BONE DENSITY [facility] Start: 04-30-1984 DIABETES SCREEN DIABETES SCREEN [facility] Start: 04-30-1958 Urine microalbumin profile DTAP,TDAP,TD (1 - Tdap) [facility] IGP,rfxAptima HPV all,16/18,45 IGP,rfxAptima HPV all,16/18,45 Pathology and Cytology Routine Encounter for Papanicolaou smear of vagina Ordered: 12/06/2023 [facility] Work Phone: Comment on above: Ordered: 12/06/2023 Immunizations Immunization Date Immunization Notes Care Provider Fa efren 12-09-2021 Moderna Bivalent Gama ster Vaccination Armando Morales DO Work Phone: [facility] 12-02-2021 Influenza, injectabl e, Madin [place] Canine Kidney, preservative free, quadrivalent Marty Dozier DO Work Phone: [facility] 12-02-2021 influenza virus vacc ine, unspecified formulation Armando Morales DO Work Phone: [facility] 11-28-2020 influenza virus vacc ine, unspecified formulation Marty Dozier DO Work Phone: [facility] 11-29-2019 Seasonal trivalent influenza vaccine, adjuvanted, preservative free Marty Dozier DO Work Phone: [facility] 05-27-2017 zoster vaccine, live Marty Dozier DO Work Phone: [facility] 11-12-2016 pneumococcal conjuga te vaccine, 13 valent Marty Dozier DO Work Phone: [facility] Payers Date Payer Category Payer Private Health Insurance [id number] 2004 Medicare [id number] 2004 Unknown 1959 Medicare [id number] 1959 Self-pay 1959 Unknown [id number] 1939 Unknown [id number] 2.16.84 0.1.592443.3.579.2.593 1939 Unknown [id number] 2.16.84 0.1.129524.3.579.2.593 1939 Unknown [id number] 2.16.84 0.1.964548.3.579.2.593 1939 Unknown [id number] 2.16.84 0.1.612834.3.579.2.593 1939 Unknown [id number] 2.16.84 0.1.617194.3.579.2.593 1939 Unknown [id number] 2.16.84 0.1.099119.3.579.2.593 1939 Unknown [id number] 2.16.84 0.1.023788.3.579.2.593 1939 Unknown [id number] 2.16.84 0.1.289324.3.579.2.593 1939 Unknown [id number] 2.16.84 0.1.599231.3.579.2.593 1939 Unknown [id number] 2.16.84 0.1.080747.3.579.2.593 1939 Unknown [id number] 2.16.84 0.1.790443.3.579.2.593 1939 Unknown [id number] 2.16.84 0.1.170843.3.579.2.593 1939 Unknown [id number] 2.16.84 0.1.389301.3.579.2.593 1939 Unknown [id number] 2.16.84 0.1.700112.3.579.2.593 1939 Unknown [id number] 2.16.84 0.1.785227.3.579.2.593 1939 Unknown [id number] 2.16.84 0.1.465330.3.579.2.593 1939 Unknown [id number] 2.16.84 0.1.565327.3.579.2.593 1939 Unknown [id number] 2.16.84 0.1.207682.3.579.2.593 1939 Unknown [id number] 2.16.84 0.1.124858.3.579.2.593 1939 Unknown [id number] 2.16.84 0.1.910733.3.579.2.593 1939 Unknown [id number] 2.16.84 0.1.145388.3.579.2.593 1939 Unknown [id number] 2.16.84 0.1.640631.3.579.2.593 1939 Unknown [id number] 2.16.84 0.1.004569.3.579.2.593 1939 Unknown [id number] 2.16.84 0.1.192529.3.579.2.593 1939 Unknown [id number] 2.16.84 0.1.168389.3.579.2.593 1939 Unknown [id number] 2.16.84 0.1.957858.3.579.2.1259 1939 Unknown [id number] 2.16.84 0.1.724294.3.579.2.1259 1939 Unknown [id number] 2.16.84 0.1.783821.3.579.2.1259 1939 Unknown [id number] 2.16. 840.1.120139.3.579.2.196 1939 Unknown [id number] 2.16. 840.1.318488.3.579.2.196 1939 Unknown [id number] 2.16. 840.1.480365.3.579.2.196 1939 Unknown [id number] 2.16. 840.1.376891.3.579.2.196 1939 Unknown [id number] 2.16. 840.1.990647.3.579.2.196 Social History Date Type Detail Facility Start: 05-14-2022 End: 08-02-2022 Tobacco smoking status NHIS Never smoked tobacco [facility] Start: 05-14-2022 End: 08-02-2022 Tobacco use and exposure Smokeless tobacco non-user [facility] Start: 05-14-2022 End: 12-06-2023 Alcohol intake Lifetime non-drinker (finding) [facility] Start: 1940 Sex Assigned At Not on file [facility] Start: 09-21-2022 End: 12-06-2023 History of Social function [facility] Start: 09-21-2022 End: 12-06-[address] [facility] Adult Depression Scr eening Assessment 2 [facility] How often to you hav e a drink containing alcohol? Never [facility] Clinical Notes 09-30-2021 to 12-06-2023 Marlena Person MA - 12/06/2023 11:30 AM EDTPatient Carolyn Lai MD - 09/21/2022 12:43 PM Naa Alves PA-C - 08/26/2022 11:45 AM EDT Note Date & Type Note Facility 12-06-2023 History of Present illness Narrative Images from the original note were not included. Armando Morales, DO Obstetrics and Gynecology Alexa Delgado 1940 12/06/23 [id number] Yearly Wellness Exam Chief Complaint Patient presents with Gynecologic Exam Medicare yearly. LMP: SUNIL BSO 1972 HRT: None Last pap 12-02-21 neg. Last mammogram 12-05-23 [facility] ordered by PCP. Denies breast or urinary [...] Oil) 1000 MG capsule as directed Orally Vpaklsnsxkw-Zuyseysbttz-XAB (Triple Flex) 500-400-125 MG tablet 1 tablet with meals Orally twice daily for 30 days HYDROcodone-acetaminophen ([place]) 5-325 MG tablet 1 tablet as needed [...] 1982 with Excision of Ovary BLADDER SUSPENSION 1983 BREAST BIOPSY Left 1963 BREAST LUMPECTOMY Right 1990 BUNIONECTOMY Right 02/2005 CATARACT EXTRACTION 2012 w/ Lens Implantation CHOLECYSTECTOMY 09/15/2012 COLONOSCOPY 2018 Benign D&C FIRST TRIMESTER / TX INCOMPLETE [...] SURGERY 12/13/2008 excision neoplasm LT leg TONSILLECTOMY 1958 TOTAL ABDOMINAL HYSTERECTOMY 1973 SUNIL RSO TOTAL KNEE ARTHROPLASTY Right 09/22/2017 Dr. de leon Past Medical History: Diagnosis Date Angina pectoris ([facility]) Angina pectoris ([facility]) 11/2019 hx of hospitalization Melchor's palsy 1961 Breast nodule Cataract 2012 COVID-19 10/2021 hx of hospitalization History of medical problems 1982 MMK LSO HTN (hypertension) ([facility]) Hx of completed stroke hx of stroke at [id number]/ TIA 1985 Kidney disease remission Kidney disease hx of hospitalization Lumbar disc herniation 2007 L4 L5 Miscarriage x3 Pelvic fracture (CMS/HCC) 2018 hx of hospitalization x4 Status post laser cataract surgery of left eye 2014 Stroke ([facility]) 1973 at childbirth TIA (transient ischemic attack) [...] costovertebral angle tenderness, no obvious scoliosis/kyphosis. FEMALE GENITOURINARY:cellophane wrapping examiner in room - atrophic vaginal changes- cuff [...] 12/06/23 Time 5:00PM. documented in this encounter [facility] 09-21-2022 Note HNO ID: [id number] Author: Carolyn Vanegas MD Service: ? Author [...] Health Percentile 1 (more content not included)... [facility] 09-21-2022 Instructions Carolyn Vanegas MD [...] at this time. documented in this encounter [facility] 09-21-2022 History of Present illness Narrative [...] 4 - Moderate documented in this encounter [facility] 08-26-2022 Note HNO ID: [id number] Author: Kassandra Alves PA-C Service: ? Author Type: Physician Medical Claims Manager Type: Progress Notes Filed: 08/26/2022 11:52 AM Note Text: Per Triage: Alexa Delgado is a 82 year old female that requests evaluation of spine. Per review, they have symptoms of lower back pain. Numbness/tingling right leg. Difficulty walking. Weakness Request: 1st available Referring provider: Galina Rogers MD Patient out of state: no 2nd opinion: no Prior spine surgery: yes [address] [facility] Address: [address] [place] [address] CMT: PT Injections Tylenol Hydrocodone Studies (Reports [...] reviewed during the appt Kassandra Alves PA-C [facility] 08-26-2022 History of Present illness Narrative Per Triage: Alexa Delgado is a 82 year old female that requests evaluation of spine. Per review, they have symptoms of lower back pain. Numbness/tingling right leg. Difficulty walking. Weakness Request: 1st available Referring provider: Galina Rogers MD Patient out of state: no 2nd opinion: no Prior spine surgery: yes [address] [facility] Address: [address] [place] [address] CMT: PT Injections Tylenol Hydrocodone Studies (Reports [...] Health Provider or Pain Management Provider at [facility]? No If answer is YES [...] facility where the MRI/CT/myelogram was completed: [facility] Address: [address] [place] [address] MRI/CT/myelogram viewable in Epic: No If not, please provide [phone] to fax in imaging reports for review. [...] therapy was completed PT Injection [facility] Address: [address] [place] [address] Have you tried any other kinds of [...] the surgery was completed: [address] [facility] Address: [address] [place] [address] Additional Comments documented in this encounter [facility] 08-19-2022 Note HNO ID: [id number] Author: Micheal Bowman Service: ? Author Type: ? Type: Progress Notes Filed: 08/26/2022 11:52 AM Note Text: Patient name: Alexa Delgado Are you being referred by a Center for Spine Health Provider or Pain Management Provider at [facility]? No If answer is YES [...] facility where the MRI/CT/myelogram was completed: [facility] Address: [address] [place] [address] MRI/CT/myelogram viewable in Epic: No If not, please provide [phone] to fax in imaging reports for review. [...] physical therapy was completed PT Injection [facility] Address: [address] [place] [address] Have you tried any other kinds of [...] where the surgery was completed: 2006 [facility] Address: [address] [place] [address] Additional Comments [facility] 07-16-2022 Note PROCEDURE: XR HIP [...] HERMES MENDOZA Date: 2022-07-16 11:[address] [facility] 05-14-2022 Note HNO ID: [id number] Author: Marty Dozier, DO Service: ? Author Type: Physician Type: Progress Notes Filed: 05/15/2022 10:02 PM Note Text: [facility] [place] [facility] Spine Initial [...] Ratio: R>L low back Current Treatment: Medications [place] 5-325 mg BID - helps Diclofenac 75 [...] but still has pain -01/28/22 Noemi Sequeira REGISTRATION OFFICER: BL Lumbar erector spinae TPI (0.125% Marcaine, [...] ongoing as of 04/17/21 -03/08/21 Noemi Sequeira REGISTRATION OFFICER: Left rhomboid TPI (0.125% Marcaine, 40 mg Kenalog) -02/03/21 LESI - moderate relief for 4 days Prior spine surgery: -2006 L4-5 Discectomy Previously treated by: -[facility], previously Dr. Niko Beckwith [...] today. She has an evaluation at the [facility] tomorrow at the Spine Center. RECOMMENDATIONS: We will see the patient back in the office after she undergoes evaluation there to discuss her treatment plan thereafter. We will see the patient back in the office in approximately four weeks' time or sooner if needed. PMH: Lumbar scoliosis Depression on Negrita (more content not included)... [facility] 05-14-2022 History of Present illness Narrative Images from the original note were not included. [facility] - Medical [...] Ratio: R>L low back Current Treatment: Medications [place] 5-325 mg BID - helps Diclofenac 75 [...] but still has pain -01/28/22 Noemi Sequeira REGISTRATION OFFICER: BL Lumbar erector spinae TPI (0.125% Marcaine, [...] ongoing as of 04/17/21 -03/08/21 Noemi Sequeira REGISTRATION OFFICER: Left rhomboid TPI (0.125% Marcaine, 40 mg Kenalog) -02/03/21 LESI - moderate relief for 4 days Prior spine surgery: -2006 L4-5 Discectomy Previously treated by: -[facility], previously Dr. Niko Beckwith [...] today. She has an evaluation at the [facility] tomorrow at the Spine Center. RECOMMENDATIONS: [...] CT abd/pelvis with IV contrast, [facility], report: Abdominal wall: Old healed left pelvis fractures. Degenerative changes and scoliosis of the lumbar spine. IMPRESSION: No acute abdominal pathology. No acute inflammatory process. No obstructing urinary tract stone. No evidence for bowel obstruction. 11/15/21 XR abd, [facility], report: No acute osseous abnormality. There is moderate dextrocurvature of the lumbar spine. 05/08/2021 XR right hip/pelvis, [facility], report: Rotatory dextro scoliosis of the lumbar [...] TIME: 3:15 PM documented in this encounter [facility] 05-13-2022 Note CONSULTATION CONSULTATION DATE: 05/13/2022 [...] mg at h.s., diclofenac 75 mg b.i.d., [place] 5 mg b.i.d. EXAM: Notable for the [...] today. She has an evaluation at the [facility] tomorrow at the Spine Center. RECOMMENDATIONS: We will see the patient back in the office after she undergoes evaluation there to discuss her treatment plan thereafter. We will see the patient back in the office in approximately four weeks' time or sooner if needed. [facility] 04-06-2022 Note CONSULTATION CONSULTATION DATE: 04/06/2022 CHIEF [...] to kidney dysfunction also. The patient takes [place], however, is very controlled and limits it to the point of detriment. Education was done. The patient was instructed to take the [place] to a b.i.d. to t.i.d. basis. The [...] b.i.d. basis. The patient may increase the [place] to 5/325 t.i.d. We will schedule the [...] the procedure. CC: Galina Rogers M.D. [facility] 03-11-2022 Note CONSULTATION CONSULTATION DATE: 03/11/2022 HISTORY [...] gave improvement for 24 hours. Medications include [place] 5/325 b.i.d., diclofenac 75 mg b.i.d., citalopram [...] back pain. PLAN: We will refill her [place] 5/325 b.i.d. We will prescribe her Buderer cream with gabapentin, ketorolac and prilocaine/lidocaine to be placed over her right knee. We will trial Requip 0.25 mg q.h.s. We will see the patient in the clinic in three months' time unless otherwise indicated. Patient agrees with the plan. [facility] 01-28-2022 Note CONSULTATION CONSULTATION DATE: 01/28/2022 HISTORY [...] daily which decreases her pain. Medications include [place] 5/325 b.i.d., Flexeril 5 mg b.i.d., diclofenac [...] does consent to. We will refill the [place] 5/325 b.i.d. We will pre-authorize for a right genicular nerve block under fluoroscopy. Patient will follow up in the clinic thereafter. [facility] 01-28-2022 Note CONSULTATION PROCEDURE DATE: 01/28/2022 PREOPERATIVE [...] be followed up in the office. [facility] 12-31-2021 Note CONSULTATION CONSULTATION DATE: 12/31/2021 HISTORY [...] Current medications include diclofenac 75 mg b.i.d., [place] 5/325 b.i.d., citalopram, Flexeril and multivitamin regimen. The patient does state that she breaks her [place] in half and the most she takes [...] and would like to move forward. [facility] 09-30-2021 Note CONSULTATION CONSULTATION DATE: 09/30/2021 This is a very [id number]-[id number] female accompanied by her returning to the [...] Current medications include diclofenac 50 mg b.i.d., [place] 5/325 b. i.d. and Tylenol. She does [...] at 25 mg q.h.s. Refill for her [place] 5/325 b.i.d. will be sent as well. The patient is to continue with her vitamin regimen which she is currently compliant with, as well as heat application and pool exercises. The patient will be followed up in the office in three months' time unless otherwise indicated. The patient agrees with the plan of care. [facility] Evaluation note Diagnosis Chronic bilateral low back pain with right-sided sciatica- Primary Back pain, lumbosacral Lumbago Chronic sacroiliac joint pain Disorders of sacrum Lumbar spondylosis Lumbosacral spondylosis without myelopathy Scoliosis of lumbar spine, unspecified scoliosis type [facility] Spinal stenosis, lumbar region with neurogenic claudication- Primary Spondylolisthesis, lumbar region Other idiopathic scoliosis, lumbar region [facility] Diagnosis Obesity, Class I, BMI 30-34.9- Primary Obesity, unspecified Spinal stenosis, lumbar region with neurogenic claudication [facility] Diagnosis Encounter for gynecological examination without abnormal finding Encounter for Papanicolaou smear of vagina Breast cancer screening by mammogram documented in this encounter [facility] Healthcare Summary Purpose Family History No Family [...] Specialty Diagnoses / Procedures Referred By Jimmy t Referred To Contact [facility] Diagnoses Spinal stenosis, lumbar region with neurogenic claudication Procedures CONSULT TO [facility]) OFFICE/OUTPATIENT [facility] 60-74 MINUTES Carolyn Vanegas MD [address] [place] [address] Referral ID Status Reason Start Date Expiration Date Visits Requested Visits Authorized [id number] Pending Review PCP Requested Referral 09/21/2022 09/21/2023 1 1 Additional Source Comments INFORMATION SOURCE (unrecogn ized section and content) DATE CREATED AUTHOR 09/13/2017 [facility] DATE CREATED AUTHOR AUTHOR'S ORGANIZ ATION 12/13/2020 [facility] DATE CREATED AUTHOR AUTHOR'S ORGANIZ ATION 07/30/2022 [facility] DATE CREATED AUTHOR AUTHOR'S ORGANIZ ATION 09/22/2022 [facility] DATE CREATED AUTHOR AUTHOR'S ORGANIZ ATION 10/26/2023 [facility] DATE CREATED AUTHOR AUTHOR'S ORGANIZ ATION 12/08/2023 [facility] EPIC DATE CREATED AUTHOR AUTHOR'S ORGANIZ ATION 01/22/2024 [facility] Source Comments (unrecognize d section and content) In the event this informatio n is protected by the Federal Confidentiality of Alcohol and Drug Abuse Patient Records regulations: The Federal rules restrict any use of the information to criminally investigate or prosecute any alcohol or drug abuse patient.[facility] event this information is protected by the Federal Confidentiality of Alcohol and Drug Abuse Patient Records regulations: The Federal rules restrict any use of the information to criminally investigate or prosecute any alcohol or drug abuse patient.[facility] the event this information is protected by the Federal Confidentiality of Alcohol and Drug Abuse Patient Records regulations: The Federal rules restrict any use of the information to criminally investigate or prosecute any alcohol or drug abuse patient.[facility] Reason for Visit (unrecogniz ed section and content) Reason Comments New Patient Evaluation Low Back Pain Reason Comments New Patient Reason Comments Gynecologic Exam Medicare yearly.LMP: SUNIL BSO 1973HRT: NoneLast pap 12-02-21 neg.Last mammogram 12-05-23 [facility] ordered by PCP.Denies breast or urinary concerns. bowel concern Some rectal bleeding with bowel movements. Denies difficulty having a bowel movement. Care Teams (unrecognized sec tion and content) Head Baggage Porter Relationship Specialty Start Date End Date Galina Rogers MD [address] [place] [address] PCP - General Family Medicine 05/14/22 Colette De Leon Jr., DO [address] [facility] [address] [place] [address] Referring Orthopedics 05/03/22 Porsha Garcia [address] [id number] Pain Management 05/14/22 Colette De Leon Jr., DO [address] [place] [address] Orthopedics 05/14/22 Head Baggage Porter Relationship Specialty Start Date End Date Galina Rogers MD [address] [place] [address] PCP - General Family Medicine 05/14/22 Colette De Leon Jr., DO [address] [facility] [address] [place] [address] Referring Orthopedics 05/03/22 [address] [place] [address] [place] [address], [place] [address] Pain Management 05/14/22 Colette De Leon Jr., DO [address] [place] [address] Orthopedics 05/14/22 Galina Rogers MD [address] [place] [facility] [address] Referring Family Medicine 08/11/22 Head Baggage Porter Relationship Specialty Start Date End Date Galina Rogers MD [address] [place] [address] PCP - General Family Medicine 05/14/22 Colette De Leon Jr., DO [address] [place] [address] Referring Orthopedics 05/03/22 Sher[address]Porsha [address] [place] [address] [place] [address], [place] [phone] Pain Management 05/14/22 Colette De Leon Jr., DO [address] [place] [address] Orthopedics 05/14/22 Galina Rogers MD [address] [place] [facility] [place] [address] Referring Family Medicine 08/11/22 Head Baggage Porter Relationship Specialty Start Date End Date Galina Rogers MD [address] [place] [address] PCP - General Family Medicine 08/02/22 FOR [...] BE BASED ON THE PRIMARY CLINICAL RECORDS. [employer] [facility]. provides no warranty or guarantee of the accuracy or completeness of information in this document.
--- NOTE | 2024-02-01 13:52 | PM.CN ---
Consult Note: HPI Data of Consult Patient: known to practice within the last 3 years Requesting Physician: Vivian Meza NP Primary Care Provider: Luis Rogers MD Consult Narrative Reason for consult: f/u Narrative: Alexa Delgado a pleasant 82 year old female presents for evaluation and management of chronic pain. Patient rating pain 3-4/10 today, increasing to 8/10 in back and left leg with standing walking and activity. pain improved with lying down, heat, and medications. Patient has found significant improvement in pain and functional ability with past procedures and current medication regimen. Denies side effects from current medication regimen. following with PCP for dementia, noticing increased memory loss. recently underwent left L4/5 L5/S1 TFESI with >50% improvement ongoing. hx of benefit to TFESIs and SIJ injections, >50% improvement greater than 3 months. cc:: CC: Vivian Meza NP Review of Systems ROS Status of ROS 10 or more systems reviewed and unremarkable except as noted in history and below Musculoskeletal Reports: back pain, extremity pain and joint pain PFSH PFSH Medical History Pelvic fracture ?S32.9XXA - Fracture of unspecified parts of lumbosacral spine and pelvis, initial encounter for closed fracture (ICD-10) TIA (transient ischemic attack) ?G45.9 - Transient cerebral ischemic attack, unspecified (ICD-10) Closed fracture of coccyx ?S32.2XXA - Fracture of coccyx, initial encounter for closed fracture (ICD-10) Osteoarthritis ?M19.90 - Unspecified osteoarthritis, unspecified site (ICD-10) H/O pyelonephritis ?Z87.448 - Personal history of other diseases of urinary system (ICD-10) Syncope ?R55 - Syncope and collapse (ICD-10) Generalized weakness ?R53.1 - Weakness (ICD-10) Dizziness ?R42 - Dizziness and giddiness (ICD-10) Surgical History Pain management ?R52 - Pain, unspecified (ICD-10) H/O bladder repair surgery ?Z98.890 - Other specified postprocedural states (ICD-10) H/O breast surgery ?Z98.890 - Other specified postprocedural states (ICD-10) H/O knee surgery ?Z98.890 - Other specified postprocedural states (ICD-10) H/O foot surgery ?Z98.890 - Other specified postprocedural states (ICD-10) History of right knee joint replacement ?Z96.651 - Presence of right artificial knee joint (ICD-10) History of YAG laser capsulotomy of lens ?Z98.49 - Cataract extraction status, unspecified eye (ICD-10) Hx laparoscopic cholecystectomy ?Z90.49 - Acquired absence of other specified parts of digestive tract (ICD-10) H/O: hysterectomy ?Z90.710 - Acquired absence of both cervix and uterus (ICD-10) History of arthroscopic knee surgery ?Z98.890 - Other specified postprocedural states (ICD-10) H/O discectomy ?Z98.890 - Other specified postprocedural states (ICD-10) H/O dilation and curettage ?Z98.890 - Other specified postprocedural states (ICD-10) History of appendectomy ?Z90.49 - Acquired absence of other specified parts of digestive tract (ICD-10) Hx of tonsillectomy ?Z90.89 - Acquired absence of other organs (ICD-10) Family History Other Family history of CHF (congestive heart failure) Social History Within the past year, how often did you have a drink containing alcohol: never Score interpretation: A score less than 3 is consistent with normal alcohol consumption. Smoking status: Never smoker Non-prescribed substance use: denies use Previous occupational history: Retired, , lives at home Highest level of school completed/degree received: high school graduate Are you now , , , , never or living with a partner: In a typical week, how many times do you talk on the telephone with family, friends, or neighbors: once per week How often do you get together with friends or relatives: once per week How often do you attend worship or evangelical services: 1-3 times per year Little interest or pleasure in doing things: not at all Feeling down, depressed, or hopeless: not at all Feel stressed/tense/nervous/anxious/difficulty sleeping: not at all Gender Identity: female Meds Home Medications and Allergies Home Medications ?Medication ?Instructions ?Recorded ?Confirmed ?Type B complex with vitamin 1 cap PO DAILY 07/26/22 01/16/24 History N-vlakhrlxy-jfzp capsule aspirin 81 mg tablet,delayed 81 mg PO DAILY 07/26/22 01/16/24 History release calcium 600 mg (as carbonate)-vit 1 tab PO DAILY 07/26/22 11/04/23 History D3 10 mcg (400 unit)-minerals tablet capsaicin 0.025 % topical patch 1 patch topical DAILY pain 07/26/22 01/16/24 History (Salonpas-Hot) citalopram 10 mg tablet 10 mg PO DAILY 07/26/22 01/16/24 History fexofenadine 180 mg tablet 180 mg PO DAILY 07/26/22 01/16/24 History (Benita Allergy) flaxseed oil 1,000 mg capsule 1,000 mg PO DAILY 07/26/22 01/16/24 History glucosamine 750 yu-ghfssg-jys 2-C 1 tab PO DAILY 07/26/22 01/16/24 History 30 mg-D3 1,000 unit-maida 1 mg tablet (Umbhabkxtcf-Rthunymqnnp-ONX + vitD) isosorbide mononitrate 30 mg 30 mg PO DAILY 07/26/22 01/16/24 History tablet,extended release 24 hr liothyronine 25 mcg tablet 25 mcg PO DAILY 07/26/22 01/16/24 History (Cytomel) melatonin 3 mg capsule 3 mg PO DAILY 07/26/22 01/16/24 History metoprolol succinate 50 mg 50 mg PO BID 07/26/22 01/16/24 History tablet,extended release 24 hr multivitamin 1 tab PO DAILY 07/26/22 01/16/24 History nitroglycerin 0.4 mg sublingual 0.4 mg sublingual Q5M PRN chest 07/26/22 01/16/24 History tablet pain cyclobenzaprine 10 mg tablet 10 mg PO BEDTIME 04/20/23 01/16/24 History ferrous sulfate 325 mg (65 mg 325 mg PO BID 09/02/23 01/16/24 History iron) tablet cyclobenzaprine 5 mg tablet 5 mg PO QAM 10/13/23 01/16/24 History diclofenac sodium 75 mg 75 mg PO BID 10/13/23 01/16/24 History tablet,delayed release levothyroxine 75 mcg tablet 75 mcg PO QAM 10/13/23 01/16/24 History pantoprazole 40 mg tablet,delayed 40 mg PO DAILY #30 tabs 10/13/23 11/04/23 Rx release (Protonix) calcium 600 mg (as carbonate)-vit 1 tab PO BID 11/04/23 01/16/24 History D3 20 mcg (800 unit) chewable tablet (Caltrate plus D) gabapentin 100 mg capsule 100 mg PO BID #60 caps 01/05/24 01/16/24 Rx hydrocodone 5 mg-acetaminophen 325 1 tab PO TID PRN pain #90 tabs 01/05/24 01/16/24 Rx mg tablet Allergies Allergy/AdvReac Type Severity Reaction Status Date / Time Penicillins Allergy Severe Hives Verified 01/16/24 09:56 codeine AdvReac Intermediate Dizziness Verified 01/16/24 09:56 fluconazole (From Diflucan) AdvReac Intermediate Hives Verified 01/16/24 09:56 quinine (From Quinamm) AdvReac Mild Headache Verified 01/16/24 09:56 pregabalin (From Lyrica) AdvReac Dizziness Verified 01/16/24 09:56 propoxyphene (From Darvon) AdvReac Headache Verified 01/16/24 09:56 decongest multi-action AdvReac Mild Headache Uncoded 01/16/24 09:56 Exam Constitutional Documenting provider has reviewed patient's vital signs: yes Common normals: no apparent distress, oriented x3, healthy appearing, alert and well nourished General appearance: cooperative [facility] Common normals: normocephalic, hearing grossly normal bilaterally and moist oral mucous membranes Head and scalp: normocephalic Eye Common normals: PERRL Pupil: PERRL Neck & C-Spine Common normals: full ROM General: normal visual inspection Chest Common normals: inspection of chest normal Respiratory Common normals: normal respiratory effort, no retractions and no use of accessory muscles Back & Pelvis Lumbar spine/lower back: ROM limited, pain with ROM, paraspinal muscle tenderness, paraspinal muscle spasm and straight leg raise positive left Sacroiliac joints: SI joint(s) abnormal Other: bilateral sij positive marge(patricks), gaenslens, thigh thrust, compression test strength 4/5 in BLE Extremity Common normals: normal to inspection Right lower extremity: hip joint Left lower extremity: knee joint Left knee: palpation (moderate to severe pain ), ROM (limited, crepitus noted. pain with medial/lateral stress testing) and other Other: no pain with internal and external rotation of right hip Neuro Common normals: oriented x3, CN's II-XII intact bilaterally, moves all extremities, no focal motor deficits, no sensory deficits noted and deep tendon reflexes 2+ bilaterally Sensorium/orientation: alert Gait (neuro): antalgic and assistive device used walker Motor exam: no movement abnormalities noted and strength abnormal Psych Common normals: mental status grossly normal, thought process normal, cooperative, affect normal, speech normal and activity/motor behavior normal Speech: normal speech Thought process: normal thought process Assessment and Plan Assessment and Plan (1) Lumbar stenosis with neurogenic claudication: (2) Sacroiliitis: (3) Chronic, continuous use of opioids: Assessment and Plan: I feel these medications are improving the patient's quality of life and allow them to tolerate activities of daily living as well as participate in recreational activity.? The patient does not report intolerable side effects. The patient is NOT opioid naive and non-pharmacologic and non-opioid treatment has failed to significantly relieve the patient's pain and improve functionality. The patient has a diagnosis that is related to a somatic or visceral pain etiology. ? ?? I reviewed with the patient the potential risks and side effects with the use of? opioid medications including but not limited to respiratory depression,? sedation, and even . I verified the patient has access to naloxone should? these effects occur. I advised the patient to avoid the use of any other? sedation substances including alcohol, THC, and benzodiazepines while? taking opioid medications due to the risk of compounding side effects and? detrimental outcomes. I reviewed the WEIGHTS AND MEASURES INSPECTOR, pain treatment agreement, urine? drug screen, and opioid start talking forms. The patient was advised to let? their family know they had Naloxone in case they would need to administer? the medication.? ?? A drug screen was completed within the last year, and no aberrancies were noted regarding their use of controlled substances. The patient understands they are subject to the terms and conditions of the pain contract that they have signed. ? ?? I have checked an OAR[place] report on this patient today and there are no aberrancies noted in the prescribing history.? (4) Lumbar degenerative disc disease: (5) Left knee pain: (6) Myalgia, other site: Plan bilateral SIJ injection under fluoroscopy encouraged gabapentin 100mg BID, risks vs benefits reviewed continue current medications tolerating well without side effects f/u after SIJ injection
== END 2024-02-01 12:56 | disposition home or self-care (01) ==
PROVIDERS: PCP Family Medicine; Visit Provider Nurse Practitioner
DX: M48.062 Spinal stenosis, lumbar region with neurogenic claudication (principal); M46.1 Sacroiliitis, not elsewhere classified; Z79.891 Long term (current) use of opiate analgesic; M51.369 Other intervertebral disc degeneration, lumbar region without mention of lumbar back pain or lower extremity pain; M25.562 Pain in left knee; M79.18 Myalgia, other site
CPT/HCPCS: G0463

== ENCOUNTER 2024-02-06 10:02 | Day surgery (SDC) | payer MEDICARE, SELFPAY ==
[2024-02-06 10:13] VITALS: BP 166/100; PULSE 99; TEMP 36.3; O2SAT 96
[2024-02-06 10:38] VITALS: BP 160/95; PULSE 88; O2SAT 100
[2024-02-06 10:40] VITALS: BP 181/99; PULSE 90; O2SAT 100
--- NOTE | 2024-02-06 10:42 | W.PM.PROCNOT ---
Date of procedure: 02/06/24 Pre-op diagnosis: Pain due to bilateral sacroiliitis Post-op diagnosis: same as pre-op Procedure: Procedure: Bilateral sacroiliac joint injection Medications: Bupivacaine 0.25% 3cc, depomedrol 40mg x2 After informed consent was obtained, the patient was brought to the medical procedure unit and placed in the prone position, when a timeout was completed verifying correct patient, procedure, site, positioning, implant, and/or special equipment.? The skin overlying the area was prepped and draped in standard sterile fashion using alcohol.? A 25-gauge needle was inserted towards the left sacroiliac joint under direct fluoroscopic imaging.? Needle tip was advanced until the joint was encountered.? We instilled a total of 2 mL of solution.? The same procedure was then completed on the right side.? Postoperatively needles were removed.? The patient tolerated the procedure well without complication.? The patient reported reduction in pain symptoms postoperatively. Anesthesia: Local Surgeon: Lyn Quiñones Pathology: none sent Condition: stable Disposition: no change
[2024-02-06] MEDS: LIDOCAINE HCL 2% 400 MG/20 ML MDV INJ (10:43)
[2024-02-06] MEDS: IOHEXOL 240 MG/ML - 10 ML VIAL 12 MG INJ (10:43)
[2024-02-06] MEDS: BUPIVACAINE HCL 0.25% PF 25 MG/10 ML VIAL 2 ML INJ (10:43)
[2024-02-06] MEDS: METHYLPREDNISOLONE ACETATE 40 MG/ML VIAL INJ (10:43)
== END 2024-02-06 10:52 | disposition home or self-care (01) ==
LOC: SURGOUT 10:04
PROVIDERS: PCP Family Medicine; Visit Provider Anesthesiology
DX: M46.1 Sacroiliitis, not elsewhere classified (principal)
CPT/HCPCS: 27096; J0665; J1010; Q9966

== ENCOUNTER 2024-02-23 14:12 | Outpatient (OUT) | payer MEDICARE, SELFPAY ==
--- NOTE | 2024-02-23 14:36 | PM.CN ---
Consult Note: HPI Data of Consult Patient: known to practice within the last 3 years Requesting Physician: Vivian Meza NP Primary Care Provider: Luis Rogers MD Consult Narrative Reason for consult: f/u Narrative: Alexa Delgado a pleasant 82 year old female presents for evaluation and management of chronic pain. Patient rating pain 3-4/10 today, increasing to 5/10 in back and left leg with standing walking and activity. pain improved with lying down, heat, and medications. Patient has found significant improvement in pain and functional ability with past procedures and current medication regimen. Denies side effects from current medication regimen. following with PCP for dementia, noticing increased memory loss. recently underwent left L4/5 L5/S1 TFESI and bilateral SIJ injection with >50% improvement ongoing cc:: CC: Vivian Meza NP Review of Systems ROS Status of ROS 10 or more systems reviewed and unremarkable except as noted in history and below Musculoskeletal Reports: back pain, extremity pain and joint pain PFSH PFSH Medical History Pelvic fracture ?S32.9XXA - Fracture of unspecified parts of lumbosacral spine and pelvis, initial encounter for closed fracture (ICD-10) TIA (transient ischemic attack) ?G45.9 - Transient cerebral ischemic attack, unspecified (ICD-10) Closed fracture of coccyx ?S32.2XXA - Fracture of coccyx, initial encounter for closed fracture (ICD-10) Osteoarthritis ?M19.90 - Unspecified osteoarthritis, unspecified site (ICD-10) H/O pyelonephritis ?Z87.448 - Personal history of other diseases of urinary system (ICD-10) Syncope ?R55 - Syncope and collapse (ICD-10) Generalized weakness ?R53.1 - Weakness (ICD-10) Dizziness ?R42 - Dizziness and giddiness (ICD-10) Surgical History Pain management ?R52 - Pain, unspecified (ICD-10) H/O bladder repair surgery ?Z98.890 - Other specified postprocedural states (ICD-10) H/O breast surgery ?Z98.890 - Other specified postprocedural states (ICD-10) H/O knee surgery ?Z98.890 - Other specified postprocedural states (ICD-10) H/O foot surgery ?Z98.890 - Other specified postprocedural states (ICD-10) History of right knee joint replacement ?Z96.651 - Presence of right artificial knee joint (ICD-10) History of YAG laser capsulotomy of lens ?Z98.49 - Cataract extraction status, unspecified eye (ICD-10) Hx laparoscopic cholecystectomy ?Z90.49 - Acquired absence of other specified parts of digestive tract (ICD-10) H/O: hysterectomy ?Z90.710 - Acquired absence of both cervix and uterus (ICD-10) History of arthroscopic knee surgery ?Z98.890 - Other specified postprocedural states (ICD-10) H/O discectomy ?Z98.890 - Other specified postprocedural states (ICD-10) H/O dilation and curettage ?Z98.890 - Other specified postprocedural states (ICD-10) History of appendectomy ?Z90.49 - Acquired absence of other specified parts of digestive tract (ICD-10) Hx of tonsillectomy ?Z90.89 - Acquired absence of other organs (ICD-10) Family History Other Family history of CHF (congestive heart failure) Social History Within the past year, how often did you have a drink containing alcohol: never Score interpretation: A score less than 3 is consistent with normal alcohol consumption. Smoking status: Never smoker Non-prescribed substance use: denies use Previous occupational history: Retired, , lives at home Highest level of school completed/degree received: high school graduate Are you now , , , , never or living with a partner: In a typical week, how many times do you talk on the telephone with family, friends, or neighbors: once per week How often do you get together with friends or relatives: once per week How often do you attend bahai or druze services: 1-3 times per year Little interest or pleasure in doing things: not at all Feeling down, depressed, or hopeless: not at all Feel stressed/tense/nervous/anxious/difficulty sleeping: not at all Gender Identity: female Meds Home Medications and Allergies Home Medications ?Medication ?Instructions ?Recorded ?Confirmed ?Type B complex with vitamin 1 cap PO DAILY 07/26/22 02/06/24 History M-lqgytlqxs-gxuk capsule aspirin 81 mg tablet,delayed 81 mg PO DAILY 07/26/22 02/06/24 History release calcium 600 mg (as carbonate)-vit 1 tab PO DAILY 07/26/22 11/04/23 History D3 10 mcg (400 unit)-minerals tablet capsaicin 0.025 % topical patch 1 patch topical DAILY pain 07/26/22 02/06/24 History (Salonpas-Hot) citalopram 10 mg tablet 10 mg PO DAILY 07/26/22 02/06/24 History fexofenadine 180 mg tablet 180 mg PO DAILY 07/26/22 02/06/24 History (Benita Allergy) flaxseed oil 1,000 mg capsule 1,000 mg PO DAILY 07/26/22 02/06/24 History glucosamine 750 ft-ikaqqy-iui 2-C 1 tab PO DAILY 07/26/22 02/06/24 History 30 mg-D3 1,000 unit-maida 1 mg tablet (Ymuohcexgms-Oonqpajrexr-OAF + vitD) isosorbide mononitrate 30 mg 30 mg PO DAILY 07/26/22 02/06/24 History tablet,extended release 24 hr liothyronine 25 mcg tablet 25 mcg PO DAILY 07/26/22 02/06/24 History (Cytomel) melatonin 3 mg capsule 3 mg PO DAILY 07/26/22 02/06/24 History metoprolol succinate 50 mg 50 mg PO BID 07/26/22 02/06/24 History tablet,extended release 24 hr multivitamin 1 tab PO DAILY 07/26/22 02/06/24 History nitroglycerin 0.4 mg sublingual 0.4 mg sublingual Q5M PRN chest 07/26/22 02/06/24 History tablet pain cyclobenzaprine 10 mg tablet 10 mg PO BEDTIME 04/20/23 02/06/24 History ferrous sulfate 325 mg (65 mg 325 mg PO BID 09/02/23 01/16/24 History iron) tablet cyclobenzaprine 5 mg tablet 5 mg PO QAM 10/13/23 02/06/24 History diclofenac sodium 75 mg 75 mg PO BID 10/13/23 02/06/24 History tablet,delayed release levothyroxine 75 mcg tablet 75 mcg PO QAM 10/13/23 02/06/24 History pantoprazole 40 mg tablet,delayed 40 mg PO DAILY #30 tabs 10/13/23 02/06/24 Rx release (Protonix) calcium 600 mg (as carbonate)-vit 1 tab PO BID 11/04/23 02/06/24 History D3 20 mcg (800 unit) chewable tablet (Caltrate plus D) gabapentin 100 mg capsule 100 mg PO BID #60 caps 01/05/24 02/06/24 Rx hydrocodone 5 mg-acetaminophen 325 1 tab PO TID PRN pain #90 tabs 01/05/24 02/06/24 Rx mg tablet Allergies Allergy/AdvReac Type Severity Reaction Status Date / Time Penicillins Allergy Severe Hives Verified 02/06/24 10:23 codeine AdvReac Intermediate Dizziness Verified 02/06/24 10:23 fluconazole (From Diflucan) AdvReac Intermediate Hives Verified 02/06/24 10:23 quinine (From Quinamm) AdvReac Mild Headache Verified 02/06/24 10:23 pregabalin (From Lyrica) AdvReac Dizziness Verified 02/06/24 10:23 propoxyphene (From Darvon) AdvReac Headache Verified 02/06/24 10:23 decongest multi-action AdvReac Mild Headache Uncoded 02/06/24 10:23 Exam Constitutional Documenting provider has reviewed patient's vital signs: yes Common normals: no apparent distress, oriented x3, healthy appearing, alert and well nourished General appearance: cooperative [facility] Common normals: normocephalic, hearing grossly normal bilaterally and moist oral mucous membranes Head and scalp: normocephalic Eye Common normals: PERRL Pupil: PERRL Neck & C-Spine Common normals: full ROM General: normal visual inspection Chest Common normals: inspection of chest normal Respiratory Common normals: normal respiratory effort, no retractions and no use of accessory muscles Back & Pelvis Lumbar spine/lower back: ROM limited, pain with ROM, paraspinal muscle tenderness, paraspinal muscle spasm and straight leg raise positive left Sacroiliac joints: SI joints normal Other: bilateral sij negative marge(patricks), gaenslens, thigh thrust, compression test strength 4/5 in BLE Extremity Common normals: normal to inspection Right lower extremity: hip joint Left lower extremity: knee joint Left knee: palpation (moderate to severe pain ), ROM (limited, crepitus noted. pain with medial/lateral stress testing) and other Other: no pain with internal and external rotation of right hip Neuro Common normals: oriented x3, CN's II-XII intact bilaterally, moves all extremities, no focal motor deficits, no sensory deficits noted and deep tendon reflexes 2+ bilaterally Sensorium/orientation: alert Gait (neuro): antalgic and assistive device used walker Motor exam: no movement abnormalities noted and strength abnormal Psych Common normals: mental status grossly normal, thought process normal, cooperative, affect normal, speech normal and activity/motor behavior normal Speech: normal speech Thought process: normal thought process Assessment and Plan Assessment and Plan (1) Lumbar stenosis with neurogenic claudication: (2) Sacroiliitis: (3) Chronic, continuous use of opioids: Assessment and Plan: I feel these medications are improving the patient's quality of life and allow them to tolerate activities of daily living as well as participate in recreational activity.? The patient does not report intolerable side effects. The patient is NOT opioid naive and non-pharmacologic and non-opioid treatment has failed to significantly relieve the patient's pain and improve functionality. The patient has a diagnosis that is related to a somatic or visceral pain etiology. ? ?? I reviewed with the patient the potential risks and side effects with the use of? opioid medications including but not limited to respiratory depression,? sedation, and even . I verified the patient has access to naloxone should? these effects occur. I advised the patient to avoid the use of any other? sedation substances including alcohol, THC, and benzodiazepines while? taking opioid medications due to the risk of compounding side effects and? detrimental outcomes. I reviewed the CONSTRUCTION ENGINEERING MANAGER, pain treatment agreement, urine? drug screen, and opioid start talking forms. The patient was advised to let? their family know they had Naloxone in case they would need to administer? the medication.? ?? A drug screen was completed within the last year, and no aberrancies were noted regarding their use of controlled substances. The patient understands they are subject to the terms and conditions of the pain contract that they have signed. ? ?? I have checked an OARRS report on this patient today and there are no aberrancies noted in the prescribing history.? (4) Lumbar degenerative disc disease: (5) Left knee pain: (6) Myalgia, other site: Plan continue current medications tolerating well without side effects, risks vs benefits reviewed f/u 2 months, sooner if needed
== END 2024-02-23 14:13 | disposition home or self-care (01) ==
PROVIDERS: PCP Family Medicine; Visit Provider Nurse Practitioner
DX: M48.062 Spinal stenosis, lumbar region with neurogenic claudication (principal); M46.1 Sacroiliitis, not elsewhere classified; Z79.891 Long term (current) use of opiate analgesic; M51.369 Other intervertebral disc degeneration, lumbar region without mention of lumbar back pain or lower extremity pain; M25.562 Pain in left knee; M79.18 Myalgia, other site
CPT/HCPCS: G0463

== ENCOUNTER 2024-03-22 14:22 | Outpatient (OUT) | payer MEDICARE, SELFPAY ==
--- OUTSIDE RECORDS SUMMARY | 2024-03-22 14:36 | XMS_ITS | CCD ---
Author Organization [facility] Care Team Providers Care Capacitor Assembler Name Role Phone PHYSICIAN, DEFAULT Unavailable Unavailable PHYSICIAN, DEFAULT Unavailable Unavailable Haley Matos DO, George Cajetan Unavailable Galina Rogers MD Primary Care Provider Lakshmipathy, Narendranath Unavailable [phone] Haley Matos DO, George Cajeaydee Unavailable ESTELA [...] Unavailable HOY ., DR MOJICA Consulting Unavailable [place], DR HERMES Jean Baptiste Consulting Unavailable LATANYA [...] Unavailable Galina Rogers MD Primary Care Provider [phone] Ishmael MEANS, Lyn Adams Attending Unavailable Ishmael MEANS, Andrius Adams Attending Unavailable Ishmael MEANS, Andrius Adams Attending Unavailable Ishmael MEANS, Lyn Adams Attending Unavailable Ishmael MEANS, Lyn Adams Attending Unavailable Ishmael MEANS, Lyn Adams Attending Unavailable Allergies Allergy Classification Reported Allergen(s) Allergy Type Date of Onset Reaction(s) Facility (5 sources) Codeine; Translations: [CODEINE] Drug Allergy 09-14-19 13 Unknown [facility] (4 sources) Penicillins; Translations: [PENICILLINS] Drug Allergy 09-14-19 13 Unknown [facility] (4 sources) pregabalin; Translations: [PREGABALIN] Drug Allergy 05-15-19 23 Intolerance [facility] Work Phone: (5 sources) Propoxyphene; Translations: [PROPOXYPHENE] Drug Allergy 05-15-19 23 Rash, Unknown, GI intolerance, Headache [facility] (4 sources) quiNINE; Translations: [QUINAMM] Drug Allergy 05-15-19 23 GI Upset [facility] (5 sources) Decongest Multi-Action; Translations: [Decongest Multi-Action] Drug Allergy 05-15-19 23 Other: See Comments [facility] (1 source) Acetaminophen / HYDROcodone Drug Allergy [facility] (2 sources) Codeine Drug Allergy 09-14-19 13 [facility] (1 source) Fluconazole Drug Allergy [facility] (2 sources) Penicillins Drug allergy (disorder) 09-14-19 13 [facility] (1 source) pregabalin Drug Allergy [facility] (2 sources) Propoxyphene Drug Allergy [facility] (1 source) quiNINE Drug Allergy [facility] (1 source) Fluconazole Allergy to substance 12-06-19 Unknown [facility] (1 source) Penicillins Propensity to adverse reactions 08-03-19 Unknown [facility] (1 source) Pregabalin Propensity to adverse reactions 08-03-19 Dizziness [facility] (1 source) Pseudoephedrine Drug Allergy 08-03-19 [facility] (1 source) quiNINE Drug Allergy 08-03-19 GI intolerance, Headache, Dizziness [facility] Medications [...] mouth twice daily as needed HYDROcodone-acetamin ophen ([place]) 5-325 MG tablet 1 tablet as needed [...] Take by mouth twice a day. Active Dapwaqk-Ufyeuma-Kdgax l Edwar (SALONPAS TD) (1 source) Camphor-Menthol- [...] 24 fexofenadine (Benita Allergy) 180 MG tablet QA 12/06/2023 Discontinued (Duplicate order) Comment on above: [...] above: Take by mouth twice daily. 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 08-18-2023 L Specimen: [id number] Received: 08/22/23 Status: CECILIA Wright Num: [id number] Spec Type: Impression Subm Dr: Galina Rogers MD Tissues: PATHPER Procedures: PATHREVIEW Age/ Patient Sex Location Account Attending Physician Alexa Delgado 83/F LABELL [id number] Galina Rogers MD SPEC NUM: [id number] RECD: 08/22/23 STATUS: CECILIA WRIGHT NUM: [id number] JANET: 08/18/[address]: Galina Rogers MD ENTERED: 08/22/23 [facility] DR: Annie Rivas SPEC TYPE: Impression DEPT: SHELLIE Simmons ENTERED BY: [id number] RECV BY: [id number] ORDERED: PATHREVIEW ORDERED: PATHREVIEW Pathologist Review Abnormal [...] initial report for the needed correction CPT: 02247 ---- ---- Specimen: [id number] Received: 08/22/23 Status: CECILIA Wright Num: [id number] Spec Type: Impression Subm Dr: Galina Rogers MD Tissues: PATHPER Procedures: PATHREVIEW ---- Patient: Alexa Delgado [id number] (Continued) ---- Signed (signature on file) Anoop Abdul MD 08/24/23918 [place] [facility] Peter 09-21-2022 NICHOLE Office Visit (NSADHC ) ALEXA DELGADO ([id number]) 1940 F Date Time Provider Department 09/21/22 1:00 PM CAROLYN VANEGAS [facility] During your visit today, we [...] Percentile 2 (more content not included)... Normal [facility] XR LSPINE 2_3 VIEWSon 2022 [...] by: HERMES MENDOZA Date: 2022-07-16 11:34 Normal [facility] CNOVon 05-14-2022 CNOV Office Visit (SPMESH ) ALEXA DELGADO ([id number]) 1940 F Date Time Provider Department 05/14/22 2:30 PM MARTY DOZIER SPMESH During your visit today, we recorded the following information about you: Pulse Blood pressure Weight Height 72/minute 158/87 76.4 kg 1.524 m Marty Dozier DO 05/15/2022 10:02 PM Signed [facility] [place] [facility] Initial Exam SUBJECTIVE HISTORY OF PRESENT ILLNESS: Alexapepper Delgado is a 82 year old female [...] Ratio: R>L low back Current Treatment: Medications [place] 5-325 mg BID - helps Diclofenac 75 [...] but still has pain -01/28/22 Noemi Sequeira SAS ARCHITECT: BL Lumbar erector spinae TPI (0.125% Marcaine, [...] ongoing as of 04/17/21 -03/08/21 Noemi Sequeira SAS ARCHITECT: Left rhomboid TPI (0.125% Marcaine, 40 mg Kenalog) -02/03/21 LESI - moderate relief for 4 days Prior spine surgery: -2006 L4-5 Discectomy Previously treated by: -[facility], previously Dr. Niko [...] today. She has an evaluation at the [facility] tomorrow at the [facility]. RECOMMENDATIONS: We will see the pat (more content not included)... Normal [facility] CULTURE URINEon 04-05-2022 CULTURE URINE Culture Observations : LIGHT GROWTH OF MIXED GENITAL ALANIS. NO POTENTIAL PATHOGENS SEEN. Normal [facility] Comment on above: Performed By: #### U RCX ####[facility] [address] [place], [place] [address]Dr. Grace Abdul UA RANDOM W/MICROSCOPICon BACTERIA NONE SEEN Normal NONE SEEN [facility] Comment on above: Performed By: #### U AMIC ####[facility] [address] [place], [place] [address]Dr. Grace Abdul Bilirubin Ql (U) Negative Normal NEGATIVE [facility] Comment on above: Performed By: #### U AMIC ####[facility] Q[address] [place], [place] [address]Dr. Grace Abdul CAST NONE SEEN Normal NONE SEEN [facility] Comment on above: Performed By: #### U AMIC ####[facility] K[address] [place], [place] [address]Dr. Grace Abdul Clarity (U) CLEAR Normal CLEAR [facility] Comment on above: Performed By: #### U AMIC ####[facility] [address] [place] [address]Dr. Grace Abdul Color (U) YELLOW Normal YELLOW [facility] Comment on above: Performed By: #### U AMIC ####[facility] [address] [place], [place] [address]Dr. Grace Abdul Crystals LM Nom (Urine sed) NONE SEEN Normal NONE SEEN [facility] Comment on above: Performed By: #### U AMIC ####[facility] [address] [place] [address]Dr. Grace Abdul Epithelial cells LM Ql (Urine sed) RARE Normal NONE SEEN /RARE [facility] Comment on above: Performed By: #### U AMIC ####[facility] [address] [place] [address]Dr. Grace Abdul Glucose Ql (U) Negative Normal NEGATIVE [facility] Comment on above: Performed By: #### U AMIC ####[facility] Ly[address] [place], [place] [address]Dr. Grace Abdul Hemoglobin Ql (U) MODERATE Abnormal NEGATIVE [facility] Comment on above: Performed By: #### U AMIC ####[facility] [address] [place], [place] [address]Dr. Grace Abdul Ketones Ql (U) TRACE Abnormal NEGATIVE [facility] Comment on above: Performed By: #### U AMIC ####[facility] [address] [place], [place] [address]Dr. Grace Abdul LEUKOCYTES TRACE Abnormal NEGATIVE [facility] Comment on above: Performed By: #### U AMIC ####[facility] Rud[address]is[address]xt[address] [place], [place] [address]Dr. Grace Abdul MUCOUS NONE SEEN Normal NONE SEEN [facility] Comment on above: Performed By: #### U AMIC ####[facility] Q[address]zu[address] [place], [place] [address]Dr. Grace Abdul Nitrite Ql (U) Negative Normal NEGATIVE [facility] Comment on above: Performed By: #### U AMIC ####[facility] [address] [place], [place] [address]Dr. Grace Abdul pH (U) 5.0 [pH] Normal 5-9 [facility] Comment on above: Performed By: #### U AMIC ####[facility] I[address] [place], [place] [address]Dr. Grace Abdul RBC 0-2 Normal 0-2 [facility] Comment on above: Performed By: #### U AMIC ####[facility] X[address] [place], [place] [address]Dr. Grace Abdul SPEC GRAVITY 1.015 Normal 1.005-<=1.025 [facility] Comment on above: Performed By: #### U AMIC ####[facility] Lpqszkgdwh[address] [place], [place] [address]Dr. Grace Abdul UA PROTEIN Negative Normal NEGATIVE/ TRACE [facility] Comment on above: Performed By: #### U AMIC ####[facility] [address] [place] [id number]. Grace Franko Urobilinogen Qn (U) 0.2 {Ashley'U}/dL Normal 0.2 - 1. 0 [facility] Comment on above: Performed By: #### U AMIC ####[facility] [address] [place], [place] [address]Dr. Benitalee ann Abdul WBC 0-2 Abnormal NONE SEEN [facility] Comment on above: Performed By: #### U AMIC ####[facility] W[address] [place], [place] [address]Dr. Grace Abdul CBC AUTO DIFFon 04-04-2022 BASO # 0.0 103/ul Normal 0.0-0.1 [facility] Comment on above: Performed By: #### C BC ####[facility] Gwxnasnqrw[address] [place], [place] [address]Dr. Grace Abdul Basophils/100 WBC (Bld) 0.4 % Normal 0.2-2.0 [facility] Comment on above: Performed By: #### C BC ####[facility] [address] [place], [place] [address]DrLisette Abdul EO # 0.1 103/ul Normal 0.0-0.7 [facility] Comment on above: Performed By: #### C BC ####[facility] [address] [place], [place] [address]DrLisette Benitalee ann Abdul Eosinophils/100 WBC (Bld) 1.3 % Normal 0.9-7.0 [facility] Comment on above: Performed By: #### C BC ####[facility] [address] [place], [place] [address]DrLisette Abdul Erythrocyte distribution width (RBC) [Ratio] 13.7 % Normal 11.0-15.0 [facility] Comment on above: Performed By: #### C BC ####[facility] [address]ds[address] [place], [place] [address]DrLisette Abdul Hematocrit (Bld) [Volume fraction] 37.2 % Normal 36.0-48.0 [facility] Comment on above: Performed By: #### C BC ####[facility] [address] [place] [address]DrLisette Grace Franko Hemoglobin (Bld) [Mass/Vol] 12.4 g/dL Normal 12.0-16.0 [facility] Comment on above: Performed By: #### C BC ####[facility] [address] [place], [place] [address]DrLisette Abdul IG # 0.02 10e3/ul Normal 0.00-0.03 [facility] Comment on above: Performed By: #### C BC ####[facility] T[address]ix[address] [place], [place] [address]DrLisette Abdul IG % 0.4 % Normal 0.0-0.5 [facility] Comment on above: Performed By: #### C BC ####[facility] [address] [place], [place] [address]DrLisette Abdul LYMPH # 0.8 103/ul Critically low 1.2-3.8 [facility] Comment on above: Performed By: #### C BC ####[facility] [address] [place], [place] [address]DrLisette Abdul Lymphocytes/100 WBC (Bld) 13.9 % Critically low 20.5-60.0 [facility] Comment on above: Performed By: #### C BC ####[facility] [address] [place], [place] [address]DrLisette Abdul MANUAL DIFF REQ NO Normal [facility] Comment on above: Performed By: #### C BC ####[facility] [address] [place], [place] [address]DrLisette Abdul MCH (RBC) [Entitic mass] 30.5 pg Normal 26.7-34.0 [facility] Comment on above: Performed By: #### C BC ####[facility] X[address] [place], [place] [address]Dr. Grace Abdul MCHC (RBC) [Mass/Vol] 33.3 g/dL Normal 29.9-35.2 [facility] Comment on above: Performed By: #### C BC ####[facility] [address] [place] [address]DrLisette Grace Franko MCV (RBC) [Entitic vol] 91.4 fL Normal 81.0-99.0 [facility] Comment on above: Performed By: #### C BC ####[facility] X[address]ibdage[address] [place], [place] [address]DrLisette Abdul MONO # 0.7 103/ul Normal 0.3-0.8 [facility] Comment on above: Performed By: #### C BC ####[facility] Gh[address]wjom[address] [place], [place] [address]DrLisette Abdul Monocytes/100 WBC (Bld) 13.5 % Critically high 1.7-12.0 [facility] Comment on above: Performed By: #### C BC ####[facility] [address]hw[address] [place], [place] [address]Dr. Grace Abdul NEUT # 3.8 103/ul Normal 1.4-6.5 [facility] Comment on above: Performed By: #### C BC ####[facility] Asc[address]xg[address] [place], [place] [address]Dr. Grace Abdul Neutrophils/100 WBC (Bld) 70.5 % Normal 43.0-75.0 [facility] Comment on above: Performed By: #### C BC ####[facility] [address] [place], [place] [address]DrLisette Abdul Platelet mean volume (Bld) [Entitic vol] 9.0 fL Critically low 9.5-13.5 [facility] Comment on above: Performed By: #### C BC ####[facility] [address] [place], [place] [address]Dr. Grace Abdul PLT 283 103/ul Normal 150-450 [facility] Comment on above: Performed By: #### C BC ####[facility] [address] [place], [place] [address]DrLisette Abdul RBC 4.07 106/ul Critically low 4.20-5.40 [facility] Comment on above: Performed By: #### C BC ####[facility] [address] [place], [place] [address]XtLisette Abdul WBC 5.4 103/ul Normal 4.0-11.0 [facility] Comment on above: Performed By: #### C BC ####[facility] [address] [place], [place] [address]TlLisette Abdul CT ABD/PELV W CONon 04-04-19 23 [...] EMILY NAVARRETE Date: 2022-04-04 16:59 Normal [facility] ER URINE PROFILEon 3 Bilirubin Ql (U) Negative Normal NEGATIVE [facility] Comment on above: Performed By: #### ROBERT FELDER ####[facility] [address] [place] [address]Dr. Grace Abdul Clarity (U) CLEAR Normal CLEAR [facility] Comment on above: Performed By: #### ROBERT FELDER ####[facility] [address] [place] [address]Dr. Grace Abdul Color (U) LT. YELLOW Normal YELLOW [facility] Comment on above: Performed By: #### ROBERT FELDER ####[facility] [address] [place], [place] [address]Dr. Grace Abdul ERUAHD A micrscopic examination will be performed if indicated. Normal [facility] Comment on above: Performed By: #### ROBERT FELDER ####[facility] [address] [place], [place] [address]Dr. Grace Abdul Glucose Ql (U) Negative Normal NEGATIVE [facility] Comment on above: Performed By: #### ROBERT FELDER ####[facility] [address] [place], [place] [address]Dr. Grace Abdul Hemoglobin Ql (U) SMALL Abnormal NEGATIVE [facility] Comment on above: Performed By: #### ROBERT FELDER ####[facility] [address] [place], [place] [address]Dr. Grace Abdul Ketones Ql (U) Negative Normal NEGATIVE [facility] Comment on above: Performed By: #### ROBERT FELDER ####[facility] [address] [place], [place] [address]Dr. Grace Abdul LEUKOCYTES TRACE Abnormal NEGATIVE [facility] Comment on above: Performed By: #### ROBERT FELDER ####[facility] [address] [place], [place] [address]Dr. Benitalan Franko Nitrite Ql (U) Negative Normal NEGATIVE [facility] Comment on above: Performed By: #### GINA FELDERRO ####[facility] [address] [place] [address]Dr. Grace Abdul pH (U) 7.5 [pH] Normal 5-9 [facility] Comment on above: Performed By: #### GINA FELDERRO ####[facility] [address] [place] [address]Dr. Grace Abdul SPEC GRAVITY 1.005 Normal 1.005-<=1.025 [facility] Comment on above: Performed By: #### Anthony ELLISON CARLENERO ####[facility] [address] [place] [address]Dr. Grace Abdul UA PROTEIN Negative Normal NEGATIVE/ TRACE [facility] Comment on above: Performed By: #### GINA FELDERRO ####[facility] [address] [place] [address]Dr. Grace Abdul UR MICRO IND INDICATED Normal [facility] Comment on above: Performed By: #### GINA FELDERRO ####[facility] [address] [place] [address]Dr. Grace Abdul Urobilinogen Qn (U) 0.2 {Ashley'U}/dL Normal 0.2 - 1. 0 [facility] Comment on above: Performed By: #### GINA FELDERRO ####[facility] [address] [place] [address]DrLisette Abdul LIPASEon 04-04-2022 Lipase [Catalytic activity/Vol] 115.0 U/L Normal 73.0-393.0 [facility] Comment on above: Performed By: #### Lakia PATIÑO #### [facility] Laboratory [address] [place] [address] Dr. Grace Abdul PROF 14(COMP METB)on 023 Albumin [Mass/Vol] 3.6 g/dL Normal 3.4-5.0 [facility] Comment on above: Performed By: #### Lakia PATIÑO #### [facility] [address] [place] [address] Dr. Grace Abdul Albumin/Globulin [Mass ratio] 1.1 {ratio} Normal [facility] Comment on above: Performed By: #### C VDTBH #### [facility] [address] [place] [address] Dr. Grace Abdul ALP [Catalytic activity/Vol] 74 U/L Normal 46-116 [facility] Comment on above: Performed By: #### C VDTBH #### [facility] [address] [place] [address] Dr. Grace Abdul ALT [Catalytic activity/Vol] 23 U/L Normal 14-59 [facility] Comment on above: Performed By: #### C VDTBH #### [facility] [address] [place] [address] Dr. Grace Abdul Anion gap [Moles/Vol] 12.1 mmol/L Normal [facility] Comment on above: Performed By: #### C VDTBH #### [facility] [address] [place] [address] Dr. Grace Abdul AST [Catalytic activity/Vol] 21 U/L Normal 15-37 [facility] Comment on above: Performed By: #### C VDTBH #### [facility] [address] [place] [address] Dr. Grace Abdul Bilirubin [Mass/Vol] 0.2 mg/dL Normal 0.2-1.0 [facility] Comment on above: Performed By: #### C VDTBH #### [facility] [address] [place] [address] Dr. Grace Abdul Calcium [Mass/Vol] 9.3 mg/dL Normal 8.5-10.1 [facility] Comment on above: Performed By: #### C VDTBH #### [facility] [address] [place] [address] Dr. Grace Abdul Chloride [Moles/Vol] 99 mmol/L Normal 98-107 [facility] Comment on above: Performed By: #### C VDTBH #### [facility] [address] [place] [address] Dr. Grace Abdul CO2 [Moles/Vol] 31.2 mmol/L Normal 21.0-32.0 [facility] Comment on above: Performed By: #### C VDTBH #### [facility] [address] [place] [address] [address] Grace Abdul Creatinine [Mass/Vol] 1.22 mg/dL Critically high 0.55-1.02 [facility] Comment on above: Performed By: #### C VDTBH #### [facility] [address] [place] [address] [address] Grace Abdul EGFR-AF PARAGUAYAN 51 mL/min/1.73m2 Critically low >=60 [facility] Comment on above: Performed By: #### C VDTBH #### [facility] Laboratory [address] [place] [address] Dr. Grace Abdul EGFR-NON AF PARAGUAYAN 42 mL/min/1.73m2 Critically low >=60 [facility] Comment on above: Performed By: #### C VDTBH #### [facility] Laboratory [address] [place] [address] Dr. Grace Abdul Globulin (S) [Mass/Vol] 3.3 g/dL Normal [facility] Comment on above: Performed By: #### C VDTBH #### [facility] Laboratory [address] [place] [address] Dr. Grace Abdul Glucose [Mass/Vol] 115 mg/dL Critically high 74-106 [facility] Comment on above: Performed By: #### C VDTBH #### [facility] Laboratory [address] [address] [address] Grace Abdul Potassium [Moles/Vol] 3.3 mmol/L Critically low 3.5-5.1 [facility] Comment on above: Performed By: #### C VDTBH #### [facility] Laboratory [address] [address] [address] Grace Abdul Protein [Mass/Vol] 6.9 g/dL Normal 6.4-8.2 [facility] Comment on above: Performed By: #### C VDTBH #### [facility] Laboratory [address] [address] [address] Grace Abdul Sodium [Moles/Vol] 139 mmol/L Normal 136-145 [facility] Comment on above: Performed By: #### C VDTBH #### [facility] Laboratory [address] [address] [address] Grace Abdul Urea nitrogen [Mass/Vol] 23.0 mg/dL Critically high 7.0-18.0 [facility] Comment on above: Performed By: #### C VDTBH #### [facility] Laboratory [address] [address] [address] Grace Abdul Urea nitrogen/Creatinine [Mass ratio] 18.9 mg/mg Normal [facility] Comment on above: Performed By: #### C JOETBH #### [facility] Laboratory [address] [address] [address] Grace Abdul URINE MICROSCOPIC ONLYon BACTERIA NONE SEEN Normal NONE SEEN [facility] Comment on above: Performed By: #### GINA FELDERRO ####[facility] [address] [address]Dr. Grace Abdul Bacteria identified Cx Nom (U) NOT INDICATED Normal [facility] Comment on above: Performed By: #### GINA FELDERRO ####[facility] [address] [address]Dr. Grace Abdul CAST NONE SEEN Normal NONE SEEN [facility] Comment on above: Performed By: #### GINA FELDERRO ####[facility] [address] [address]Dr. Grace Abdul Crystals LM Nom (Urine sed) NONE SEEN Normal NONE SEEN [facility] Comment on above: Performed By: #### GINA FELDERRO ####[facility] [address] [address]Dr. Grace Abdul Epithelial cells LM Ql (Urine sed) RARE Normal NONE SEEN /RARE The [facility] Comment on above: Performed By: #### GINA FELDERRO ####[facility] [address] [address]DrLisette Abdul MUCOUS NONE SEEN Normal NONE SEEN [facility] Comment on above: Performed By: #### ROBERT FELDER ####[facility] [address] [address]DrLisette Abdul RBC 0-2 Normal 0-2 [facility] Comment on above: Performed By: #### ROBERT FELDER ####[facility] [address] [address]Dr. Grace Abdul WBC 0-2 Abnormal NONE SEEN The [facility] Comment on above: Performed By: #### ROBERT FELDER ####[facility] [address] [address]DrLisette Abdul BNPon 12-11-2021 Natriuretic peptide B (Bld) [Mass/Vol] 665.0 pg/mL Normal <=1,800.0 [facility] Comment on above: Performed By: #### B MP #### [facility] Laboratory [address] [address] [address] Grace Abdul CBC AUTO DIFFon 12-11-2021 BASO # 0.0 103/ul Normal 0.0-0.1 [facility] Comment on above: Performed By: #### C BC ####[facility] [address] [address]DrLisette Adbul Basophils/100 WBC (Bld) 0.5 % Normal 0.2-2.0 The [facility] Comment on above: Performed By: #### C BC ####[facility] [address] [address]DrLisette Abdul EO # 0.1 103/ul Normal 0.0-0.7 [facility] Comment on above: Performed By: #### C BC ####[facility] [address] [address]DrLisette Abdul Eosinophils/100 WBC (Bld) 1.9 % Normal 0.9-7.0 [facility] Comment on above: Performed By: #### C BC ####[facility] [address] [address]Dr. Grace Abdul Erythrocyte distribution width (RBC) [Ratio] 13.4 % Normal 11.0-15.0 The [facility] Comment on above: Performed By: #### C BC ####[facility] [address] [address]Dr. Grace Abdul Hematocrit (Bld) [Volume fraction] 36.2 % Normal 36.0-48.0 The [facility] Comment on above: Performed By: #### C BC ####[facility] [address] [place], [place] [address]Dr. Grace Abdul Hemoglobin (Bld) [Mass/Vol] 11.9 g/dL Critically low 12.0-16.0 The [facility] Comment on above: Performed By: #### C BC ####[facility] [address] [place], [place] [address]Dr. Grace Abdul IG # 0.01 10e3/ul Normal 0.00-0.03 [facility] Comment on above: Performed By: #### C BC ####[facility] [address] [place], [place] [address]Dr. Grace Franko IG % 0.2 % Normal 0.0-0.5 [facility] Comment on above: Performed By: #### C BC ####[facility] [address] [place], [place] [address]Dr. Grace Franko LYMPH # 0.5 103/ul Critically low 1.2-3.8 [facility] Comment on above: Performed By: #### C BC ####[facility] [address] [place], [place] [address]Dr. Grace Franko Lymphocytes/100 WBC (Bld) 11.5 % Critically low 20.5-60.0 The [facility] Comment on above: Performed By: #### C BC ####[facility] [address] [place], [place] [address]Dr. Grace Franko MANUAL DIFF REQ NO Normal [facility] Comment on above: Performed By: #### C BC ####[facility] [address] [place], [place] [id number]. Grace Abdul MCH (RBC) [Entitic mass] 31.6 pg Normal 26.7-34.0 [facility] Comment on above: Performed By: #### C BC ####[facility] [address] [address]Dr. Grace Abdul MCHC (RBC) [Mass/Vol] 32.9 g/dL Normal 29.9-35.2 [facility] Comment on above: Performed By: #### C BC ####[facility] [address] [address]Dr. Grace Abdul MCV (RBC) [Entitic vol] 96.0 fL Normal 81.0-99.0 [facility] Comment on above: Performed By: #### C BC ####[facility] [address] [address]Dr. Grace Abdul MONO # 0.6 103/ul Normal 0.3-0.8 [facility] Comment on above: Performed By: #### C BC ####[facility] [address] [address]Dr. Grace Abdul Monocytes/100 WBC (Bld) 14.4 % Critically high 1.7-12.0 [facility] Comment on above: Performed By: #### C BC ####[facility] [address] [address]Dr. Grace Abdul NEUT # 3.0 103/ul Normal 1.4-6.5 The [facility] Comment on above: Performed By: #### C BC ####[facility] [address] [place], [place] [address]Dr. Grace Abdul Neutrophils/100 WBC (Bld) 71.5 % Normal 43.0-75.0 [facility] Comment on above: Performed By: #### C BC ####[facility] [address] [address]Dr. Grace Abdul Platelet mean volume (Bld) [Entitic vol] 9.2 fL Critically low 9.5-13.5 [facility] Comment on above: Performed By: #### C BC ####[facility] [address] [place], [place] [address]Qu. Grace Abdul PLT 290 103/ul Normal 150-450 [facility] Comment on above: Performed By: #### C BC ####[facility] [address] [place], [place] [address]Dj. Grace Abdul RBC 3.77 106/ul Critically low 4.20-5.40 [facility] Comment on above: Performed By: #### C BC ####[facility] [address] [place], [place] [address]Ih. Graec Abdul WBC 4.2 103/ul Normal 4.0-11.0 [facility] Comment on above: Performed By: #### C BC ####[facility] [address] [id number] Abdul FREE THYROXINE INDEX T7on FTI 2.63 Normal 1.30-4.50 [facility] Comment on above: Performed By: #### B MP #### [facility] Laboratory [address] [address] [address] Grace Abdul T3U 35.0 % Normal 30.0-39.0 [facility] Comment on above: Performed By: #### B MP #### [facility] Laboratory [address] [address] [address] Grace Abdul T4 [Mass/Vol] 7.50 ug/dL Normal 4.80-13.90 [facility] Comment on above: Performed By: #### B MP #### [facility] Laboratory [address] [address] [address] Grace Abdul GLYCOHEMOGLOBIN A1Con 2021 ADA RECOMMENDATION SEE BELOW Normal [facility] Comment on above: Result Comment: ADA RECOMMENDED LIMIT 4.0 - 6.0 ADA THERAPEUTIC TARGET < 7.0 ACTION SUGGESTED > 7.0 Performed By: #### A 1C ####[facility] [address] [address]DrLisette Abdul Glucose [Mass/Vol] 111 mg/dL Normal [facility] Comment on above: Performed By: #### A 1C ####[facility] [address] [id number] Abdul HbA1c (Bld) [Mass fraction] 5.5 % Normal 4.5-6.2 [facility] Comment on above: Performed By: #### A 1C ####[facility] [address] [address]DrLisette Abdul IRONon 12-11-2021 Iron [Mass/Vol] 50.0 ug/dL Normal 50.0-170.0 [facility] Comment on above: Performed By: #### I DARIN, VITAD, VITB12 ####[facility] [address] [address]DrLisette Abdul LIPID PROFILEon 12-11-2021 CHOL-HDL RATIO NORM SEE BELOW Normal [facility] Comment on above: Result Comment: 3.3 - 4.4 LOW RISK 4.4 - 7.1 AVERAGE RISK 7.1 - 11.0 MODERATE RISK >11.0 HIGH RISK Performed By: #### B MP #### [facility] Laboratory [address] [address] [address] Grace Abdul Cholesterol [Mass/Vol] 182 mg/dL Normal <=200 [facility] Comment on above: Performed By: #### B MP #### [facility] Laboratory [address] [address] [address] Grace Abdul Cholesterol in HDL [Mass/Vol] 60 mg/dL Normal 40-60 [facility] Comment on above: Performed By: #### B MP #### [facility] Laboratory [address] [address] [address] Grace Abdul Cholesterol in LDL [Mass/Vol] 101.2 mg/dL Normal [facility] Comment on above: Performed By: #### B MP #### [facility] Laboratory [address] [address] [address] Grace Abdul Cholesterol.total/Ch olesterol in HDL [Mass ratio] 3.0 {ratio} Normal [facility] Comment on above: Performed By: #### B MP #### [facility] Laboratory [address] [address] [address] Grace Abdul HDL NORMAL > or = 60 mg/dl - LO W CARDIOVASCULAR RISK <40 mg/dl - HIGH CARDIOVASCULAR RISK Normal [facility] Comment on above: Performed By: #### B MP #### [facility] Laboratory [address] [place] [address] Dr. Grace Abdul LDL CALC NORMAL SEE BELOW Normal [facility] Comment on above: Result Comment: <100 mg/dl OPTIMAL 100 - 129 mg/dl NEAR OR ABOVE OPTIMAL 130 - 159 mg/dl BORDERLINE HIGH 160 - 189 mg/dl HIGH >190 mg/dl VERY HIGH Performed By: #### B MP #### [facility] Laboratory [address] [place] [address] Dr. Grace Abdul Triglyceride [Mass/Vol] 104 mg/dL Normal <=150 [facility] Comment on above: Performed By: #### B MP #### [facility] Laboratory [address] [place] [address] Dr. Grace Abdul VLDL CALC 20.8 mg/dL Normal [facility] Comment on above: Performed By: #### B MP #### [facility] Laboratory [address] [place] [address] Dr. Grace Abdul PROF 14(COMP METB)on 12-11- 022 Albumin [Mass/Vol] 3.5 g/dL Normal 3.4-5.0 [facility] Comment on above: Performed By: #### B MP #### [facility] Laboratory [address] [place] [address] Dr. Grace Abdul Albumin/Globulin [Mass ratio] 1.0 {ratio} Normal [facility] Comment on above: Performed By: #### B MP #### [facility] Laboratory [address] [address] [address] Grace Abdul ALP [Catalytic activity/Vol] 55 U/L Normal 46-116 [facility] Comment on above: Performed By: #### B MP #### [facility] Laboratory [address] [place] [address] Dr. Grace Abdul ALT [Catalytic activity/Vol] 21 U/L Normal 14-59 [facility] Comment on above: Performed By: #### B MP #### [facility] Laboratory [address] [address] [address] Grace Abdul Anion gap [Moles/Vol] 9.3 mmol/L Normal [facility] Comment on above: Performed By: #### B MP #### [facility] Laboratory [address] [address] [address] Grace Abdul AST [Catalytic activity/Vol] 21 U/L Normal 15-37 [facility] Comment on above: Performed By: #### B MP #### [facility] Laboratory [address] [address] [address] Graec Abdul Bilirubin [Mass/Vol] 0.3 mg/dL Normal 0.2-1.0 [facility] Comment on above: Performed By: #### B MP #### [facility] Laboratory [address] [address] [address] Grace Abdul Calcium [Mass/Vol] 9.5 mg/dL Normal 8.5-10.1 [facility] Comment on above: Performed By: #### B MP #### [facility] Laboratory [address] [address] [address] Grace Abdul Chloride [Moles/Vol] 102 mmol/L Normal 98-107 [facility] Comment on above: Performed By: #### B MP #### [facility] Laboratory [address] [address] [address] Grace Abdul CO2 [Moles/Vol] 28.5 mmol/L Normal 21.0-32.0 [facility] Comment on above: Performed By: #### B MP #### [facility] Laboratory [address] [address] [address] Grace Abdul Creatinine [Mass/Vol] 1.04 mg/dL Critically high 0.55-1.02 [facility] Comment on above: Performed By: #### B MP #### [facility] Laboratory [address] [address] [address] Grace Abdul EGFR-AF PARAGUAYAN >60 Normal >=60 [facility] Comment on above: Performed By: #### B MP #### [facility] Laboratory [address] [address] [address] Grace Abdul EGFR-NON AF PARAGUAYAN 51 mL/min/1.73m2 Critically low >=60 [facility] Comment on above: Performed By: #### B MP #### [facility] Laboratory [address] [place] [address] Dr. Grace Abdul Globulin (S) [Mass/Vol] 3.5 g/dL Normal [facility] Comment on above: Performed By: #### B MP #### [facility] Laboratory [address] [address] [address] Grace Abdul Glucose [Mass/Vol] 102 mg/dL Normal 74-106 [facility] Comment on above: Performed By: #### B MP #### [facility] Laboratory [address] [place] [address] Dr. Grace Abdul Potassium [Moles/Vol] 3.8 mmol/L Normal 3.5-5.1 [facility] Comment on above: Performed By: #### B MP #### [facility] Laboratory [address] [place] [address] Dr. Grace Abdul Protein [Mass/Vol] 7.0 g/dL Normal 6.4-8.2 [facility] Comment on above: Performed By: #### B MP #### [facility] Laboratory [address] [place] [address] Dr. Grace Abdul Sodium [Moles/Vol] 136 mmol/L Normal 136-145 [facility] Comment on above: Performed By: #### B MP #### [facility] Laboratory [address] [place] [address] Dr. Grace Abdul Urea nitrogen [Mass/Vol] 20.0 mg/dL Critically high 7.0-18.0 [facility] Comment on above: Performed By: #### B MP #### [facility] Laboratory [address] [place] [address] Dr. Grace Abdul Urea nitrogen/Creatinine [Mass ratio] 19.2 mg/mg Normal [facility] Comment on above: Performed By: #### B MP #### [facility] Laboratory [address] [place] [address] Dr. Grace Abdul TSHon 12-11-2021 TSH 0.247 uIU/mL Critically low 0.358-3.740 [facility] Comment on above: Performed By: #### B MP #### [facility] Laboratory [address] [place], [place] [address] Dr. Grace Abdul VITAMIN B12on 12-11-2021 Cobalamin (Vitamin B12) [Mass/Vol] 762.0 pg/mL Normal 193.0-986.0 [facility] Comment on above: Performed By: #### I DARIN VITAD, VITB12 ####[facility] [address] [address]Dr. Grace Abdul VITAMIN D 25 OHon 12-11-2021 VIT D 25-OH 54.9 ng/mL Normal [facility] Comment on above: Performed By: #### I DARIN VITAD, VITB12 ####[facility] [address] [address]Dr. Grace Abdul VIT D RANGES SEE BELOW Normal [facility] Comment on above: Result Comment: <20 ng/mL Vit D deficient 20 - <30 ng/mL Vit D insufficient 30 - 100 ng/mL Vit D sufficient >100 ng/mL Potential Toxicity Performed By: #### I DARIN VITAD, VITB12 ####[facility] [address] [address]DrLisette Abdul MG MAMM SCREEN 3D CLEMENCIA CADon 11-25-2021 MG MAMM SCREEN 3D CLEMENCIA CAD Patient: ALEXA DELGADO Exam Date: 11/25/2021 : 1940 Gender:F Ordering : DR GALINA ROGERS . Admission #: [id number] Family : DR ARMANDO MORALES Order #: [id number] CLICK HERE TO VIEW EXAM RADIOLOGY REPORT [...] Treatments None Family Cancers None LOCATION: The [facility] BREAST COMPOSITION: Scattered areas fibroglandular density. [...] MD on 11/25/2021 at 14:14 Normal [facility] CULTURE URINEon 11-24-2021 CULTURE URINE Culture Observations : LIGHT GROWTH OF MIXED GENITAL ALANIS. NO POTENTIAL PATHOGENS SEEN. Normal [facility] Comment on above: Performed By: #### U RCX ####[facility] [address] [address]Dr. Grace Abdul GI PANEL (PCR)on 11-24-2021 Adenovirus F 40/41 Not detected Normal NOT DETECTED [facility] Comment on above: Performed By: #### C BC #### [facility] Laboratory [address] [address] [address] Grace Abdul Astrovirus Not detected Normal NOT DETECTED [facility] Comment on above: Performed By: #### C BC #### [facility] Laboratory [address] [address] [address] Grace Dorman. Diff toxin A/B Not detected Normal NOT DETECTED [facility] Comment on above: Performed By: #### C BC #### [facility] Laboratory [address] [address] [address] Grace Abdul Campylobacter Not detected Normal NOT DETECTED [facility] Comment on above: Performed By: #### C BC #### [facility] Laboratory [address] [address] [address] Grace Abdul Cryptosporidium Not detected Normal NOT DETECTED The [facility] Comment on above: Performed By: #### C BC #### [facility] Laboratory [address] [address] [address] Grace Abdul Cyclos. Cayetanensis Not detected Normal NOT DETECTED [facility] Comment on above: Performed By: #### C BC #### [facility] Laboratory [address] [place] [address] Dr. Grace Abdul E. Coli O157 Not Applicable Normal Not Applicable [facility] Comment on above: Performed By: #### C BC #### [facility] Laboratory [address] [place] [address] Dr. Grace Abdul E. histolytica Not detected Normal NOT DETECTED [facility] Comment on above: Performed By: #### C BC #### [facility] Laboratory [address] [place] [address] Dr. Grace Abdul EAEC Not detected Normal NOT DETECTED [facility] Comment on above: Performed By: #### C BC #### [facility] Laboratory [address] [place] [address] Dr. Grace Abdul EIEC Not detected Normal NOT DETECTED [facility] Comment on above: Performed By: #### C BC #### [facility] Laboratory [address] [place] [address] Dr. Grace Abdul EPEC Not detected Normal NOT DETECTED [facility] Comment on above: Performed By: #### C BC #### [facility] Laboratory [address] [place] [address] Dr. Grace Abdul ETEC Not detected Normal NOT DETECTED [facility] Comment on above: Performed By: #### C BC #### [facility] Laboratory [address] [place] [address] Dr. Grace Abdul G. Lamblia Not detected Normal NOT DETECTED [facility] Comment on above: Performed By: #### C BC #### [facility] Laboratory [address] [place] [address] Dr. Grace BURGESSL CONTROLS PASSED Normal [facility] Comment on above: Performed By: #### C BC #### [facility] Laboratory [address] [place] [address] Dr. Grace NOLASCONL KAUR HEADER GI PANEL BACTERIA Normal [facility] Comment on above: Performed By: #### C BC #### [facility] [facility] [address] [place] [address] Dr. Grace SANDERS ECOLI GI PANEL DIARRHEAGEN IC E.COLI / SHIGELLA Normal The [facility] Comment on above: Performed By: #### C BC #### [facility] [address] [address] [address] Grace SANDERS INFO SEE BELOW Normal The [facility] Comment on above: Result Comment: EAEC - Enteroaggregative E. Coli EPEC- Enteropathogenic E. Coli ETEC- Enterotoxigenic E. Coli lt/st STEC- Shigella-like toxin-producing E. Coli stx1/stx2 EIEC- Shigella/Enteroinvasive E. Coli Performed By: #### C BC #### [facility] [address] [address] [address] Grace SANDERS PARASITES GI PANEL PARASITES Normal The [facility] Comment on above: Performed By: #### C BC #### [facility] [address] [address] [address] Grace SANDERS VIRUS GI PANEL VIRUSES Normal The [facility] Comment on above: Performed By: #### C BC #### [facility] [address] [address] [address] Grace Abdul Norovirus GI/GII Not detected Normal NOT DETECTED The [facility] Comment on above: Performed By: #### C BC #### [facility] [address] [address] [address] Grace Abdul P. Shigelloides Not detected Normal NOT DETECTED The [facility] Comment on above: Performed By: #### C BC #### [facility] [address] [address] [address] Grace Abdul Rotavirus A Not detected Normal NOT DETECTED The [facility] Comment on above: Performed By: #### C BC #### [facility] [address] [address] [address] Grace Abdul Salmonella Not detected Normal NOT DETECTED The [facility] Comment on above: Performed By: #### C BC #### [facility] [address] [address] [address] Grace Abdul Sapovirus Not detected Normal NOT DETECTED [facility] Comment on above: Performed By: #### C BC #### [facility] [address] [address] [address] Grace MCGUIREC Not detected Normal NOT DETECTED [facility] Comment on above: Performed By: #### C BC #### [facility] [address] [address] [address] Grace Abdul Vibrio Not detected Normal NOT DETECTED [facility] Comment on above: Performed By: #### C BC #### [facility] [address] [address] [address] Grace Abdul Vibrio Cholera Not detected Normal NOT DETECTED The [facility] Comment on above: Performed By: #### C BC #### [facility] [address] [address] [address] Grace Abdul Y. Enterocolitica Not detected Normal NOT DETECTED The [facility] Comment on above: Performed By: #### C BC #### [facility] [address] [address] [address] Grace Abdul UA RANDOM W/MICROSCOPICon BACTERIA NONE SEEN Normal NONE SEEN [facility] Comment on above: Performed By: #### U AMIC ####[facility] [address] [address]DrLisette Abdul Bilirubin Ql (U) Negative Normal NEGATIVE The [facility] Comment on above: Performed By: #### U AMIC ####[facility] [address] [address]Dr. Grace Abdul CAST NONE SEEN Normal NONE SEEN [facility] Comment on above: Performed By: #### U AMIC ####[facility] [address] [address]DrLisette Abdul Clarity (U) CLEAR Normal CLEAR The [facility] Comment on above: Performed By: #### U AMIC ####[facility] [address] [address]DrLisette Abdul Color (U) LT. YELLOW Normal YELLOW The [facility] Comment on above: Performed By: #### U AMIC ####[facility] [address] [id number]. Grace Abdul Crystals LM Nom (Urine sed) NONE SEEN Normal NONE SEEN The [facility] Comment on above: Performed By: #### U AMIC ####[facility] [address] [address]Dr. Grace Abdul Epithelial cells LM Ql (Urine sed) FEW Abnormal NONE SEEN /RARE The [facility] Comment on above: Performed By: #### U AMIC ####[facility] [address] [address]Dr. Grace Abdul Glucose Ql (U) Negative Normal NEGATIVE [facility] Comment on above: Performed By: #### U AMIC ####[facility] [address] [place], [place] [address]Dr. Grace Abdul Hemoglobin Ql (U) TRACE-INTACT Abnormal NEGATIVE [facility] Comment on above: Performed By: #### U AMIC ####[facility] [address] [place], [place] [address]Dr. Grace Abdul Ketones Ql (U) Negative Normal NEGATIVE [facility] Comment on above: Performed By: #### U AMIC ####[facility] [address] [place], [place] [address]Dr. Grace Abdul LEUKOCYTES Negative Normal NEGATIVE The [facility] Comment on above: Performed By: #### U AMIC ####[facility] [address] [address]Dr. Grace Abdul MUCOUS NONE SEEN Normal NONE SEEN The [facility] Comment on above: Performed By: #### U AMIC ####[facility] [address] [address]Dr. Grace Abdul Nitrite Ql (U) Negative Normal NEGATIVE [facility] Comment on above: Performed By: #### U AMIC ####[facility] [address] [place], [place] [address]Dr. Grace Abdul pH (U) 7.5 [pH] Normal 5-9 The [facility] Comment on above: Performed By: #### U AMIC ####[facility] [address] [address]Dr. Grace Abdul RBC 0-2 Normal 0-2 The [facility] Comment on above: Performed By: #### U AMIC ####[facility] [address] [address]DrLisette Abdul SPEC GRAVITY 1.010 Normal 1.005-<=1.025 [facility] Comment on above: Performed By: #### U AMIC ####[facility] [address] [place], [place] [address]Dr. Grace Abdul UA PROTEIN Negative Normal NEGATIVE/ TRACE The [facility] Comment on above: Performed By: #### U AMIC ####[facility] [address] [address]Dr. Grace Abdul Urobilinogen Qn (U) 0.2 {Ashley'U}/dL Normal 0.2 - 1. 0 The [facility] Comment on above: Performed By: #### U AMIC ####[facility] [address] [place], [place] [address]DrLisette Abdul WBC NONE SEEN Normal NONE SEEN The [facility] Comment on above: Performed By: #### U AMIC ####[facility] [address] [place], [place] [address]DrLisette Abdul CBC AUTO DIFFon 11-23-2021 BASO # 0.0 103/ul Normal 0.0-0.1 [facility] Comment on above: Performed By: #### C BC #### [facility] [address] [place] [address] Dr. Grace Abdul Basophils/100 WBC (Bld) 0.4 % Normal 0.2-2.0 The [facility] Comment on above: Performed By: #### C BC #### [facility] [address] [place] [address] Dr. Grace Abdul EO # 0.1 103/ul Normal 0.0-0.7 The [facility] Comment on above: Performed By: #### C BC #### [facility] [address] [place] [address] Dr. Grace Abdul Eosinophils/100 WBC (Bld) 1.5 % Normal 0.9-7.0 [facility] Comment on above: Performed By: #### C BC #### [facility] [address] [place] [address] Dr. Grace Abdul Erythrocyte distribution width (RBC) [Ratio] 13.2 % Normal 11.0-15.0 [facility] Comment on above: Performed By: #### C BC #### [facility] [address] [place] [address] Dr. Grace Abdul Hematocrit (Bld) [Volume fraction] 31.9 % Critically low 36.0-48.0 [facility] Comment on above: Performed By: #### C BC #### [facility] [address] [place] [address] Dr. Grace Abdul Hemoglobin (Bld) [Mass/Vol] 10.5 g/dL Critically low 12.0-16.0 [facility] Comment on above: Performed By: #### C BC #### [facility] [address] [place] [address] Dr. Grace Abdul IG # 0.01 10e3/ul Normal 0.00-0.03 [facility] Comment on above: Performed By: #### C BC #### [facility] [address] [place] [address] Dr. Grace Abdul IG % 0.2 % Normal 0.0-0.5 [facility] Comment on above: Performed By: #### C BC #### [facility] [address] [place] [address] Dr. Grace Abdul LYMPH # 0.7 103/ul Critically low 1.2-3.8 [facility] Comment on above: Performed By: #### C BC #### [facility] [address] [place] [address] Dr. Grace Abdul Lymphocytes/100 WBC (Bld) 14.8 % Critically low 20.5-60.0 [facility] Comment on above: Performed By: #### C BC #### [facility] [address] [place] [address] Dr. Grace Abdul MANUAL DIFF REQ NO Normal [facility] Comment on above: Performed By: #### C BC #### [facility] [address] [place] [address] Dr. Grace Abdul MCH (RBC) [Entitic mass] 31.4 pg Normal 26.7-34.0 [facility] Comment on above: Performed By: #### C BC #### [facility] [address] [place] [address] Dr. Grace Abdul MCHC (RBC) [Mass/Vol] 32.9 g/dL Normal 29.9-35.2 [facility] Comment on above: Performed By: #### C BC #### [facility] [address] [place] [address] Dr. Grace Abdul MCV (RBC) [Entitic vol] 95.5 fL Normal 81.0-99.0 [facility] Comment on above: Performed By: #### C BC #### [facility] [address] [place] [address] Dr. Grace Abdul MONO # 0.6 103/ul Normal 0.3-0.8 [facility] Comment on above: Performed By: #### C BC #### [facility] [address] [place] [address] Dr. Grace Abdul Monocytes/100 WBC (Bld) 13.4 % Critically high 1.7-12.0 [facility] Comment on above: Performed By: #### C BC #### [facility] [address] [place] [address] Dr. Grace Abdul NEUT # 3.3 103/ul Normal 1.4-6.5 The [facility] Comment on above: Performed By: #### C BC #### [facility] [address] [place] [address] Dr. Grace Abdul Neutrophils/100 WBC (Bld) 69.7 % Normal 43.0-75.0 [facility] Comment on above: Performed By: #### C BC #### [facility] [address] [place] [address] Dr. Grace Abdul Platelet mean volume (Bld) [Entitic vol] 9.1 fL Critically low 9.5-13.5 [facility] Comment on above: Performed By: #### C BC #### [facility] [address] [address] [address] Graec Abdul PLT 335 103/ul Normal 150-450 The [facility] Comment on above: Performed By: #### C BC #### [facility] [address] [address] [address] Grace Abdul RBC 3.34 106/ul Critically low 4.20-5.40 [facility] Comment on above: Performed By: #### C BC #### [facility] [address] [address] [address] Grace Abdul WBC 4.8 103/ul Normal 4.0-11.0 [facility] Comment on above: Performed By: #### C BC #### [facility] [address] [address] [address] Grace Abdul FREE THYROXINE INDEX T7on FTI 1.15 Critically low 1.30-4.50 [facility] Comment on above: Performed By: #### T 7, CMP, TSH ####[facility] [address] [address]Dr. Grace Abdul T3U 31.0 % Normal 30.0-39.0 [facility] Comment on above: Performed By: #### T 7, CMP, TSH ####[facility] [address] [address]Dr. Grace Abdul T4 [Mass/Vol] 3.70 ug/dL Critically low 4.80-13.90 [facility] Comment on above: Performed By: #### T 7, CMP, TSH ####[facility] [address] [id number]. Grace Abdul IRONon 11-23-2021 Iron [Mass/Vol] 52.0 ug/dL Normal 50.0-170.0 [facility] Comment on above: Performed By: #### C VDTBH #### [facility] [address] [address] [address] Grace Abdul PROF 14(COMP METB)on 022 Albumin [Mass/Vol] 3.5 g/dL Normal 3.4-5.0 [facility] Comment on above: Performed By: #### T 7, CMP, TSH ####[facility] [address] [address]Dr. Grace Abdul Albumin/Globulin [Mass ratio] 1.1 {ratio} Normal [facility] Comment on above: Performed By: #### T 7, CMP, TSH ####[facility] [address] [address]Dr. Grace Abdul ALP [Catalytic activity/Vol] 69 U/L Normal 46-116 [facility] Comment on above: Performed By: #### T 7, CMP, TSH ####[facility] [address] [address]Dr. Grace Abdul ALT [Catalytic activity/Vol] 51 U/L Normal 14-59 The [facility] Comment on above: Performed By: #### T 7, CMP, TSH ####[facility] [address] [address]Dr. Grace Abdul Anion gap [Moles/Vol] 11.5 mmol/L Normal [facility] Comment on above: Performed By: #### T 7, CMP, TSH ####[facility] [address] [address]Dr. Grace Abdul AST [Catalytic activity/Vol] 24 U/L Normal 15-37 The [facility] Comment on above: Performed By: #### T 7, CMP, TSH ####[facility] [address] [address]Dr. Grace Abdul Bilirubin [Mass/Vol] 0.2 mg/dL Normal 0.2-1.0 The [facility] Comment on above: Performed By: #### T 7, CMP, TSH ####[facility] [address] [address]Dr. Grace Abdul Calcium [Mass/Vol] 9.3 mg/dL Normal 8.5-10.1 [facility] Comment on above: Performed By: #### T 7, CMP, TSH ####[facility] [address] [address]Dr. Grace Abdul Chloride [Moles/Vol] 98 mmol/L Normal 98-107 The [facility] Comment on above: Performed By: #### T 7, CMP, TSH ####[facility] [address] [address]Dr. Grace Abdul CO2 [Moles/Vol] 28.7 mmol/L Normal 21.0-32.0 [facility] Comment on above: Performed By: #### T 7, CMP, TSH ####[facility] [address] [address]Dr. Grace Franko Creatinine [Mass/Vol] 1.11 mg/dL Critically high 0.55-1.02 [facility] Comment on above: Performed By: #### T 7, CMP, TSH ####[facility] [address] [address]Dr. Grace Franko EGFR-AF PARAGUAYAN 57 mL/min/1.73m2 Critically low >=60 [facility] Comment on above: Performed By: #### T 7, CMP, TSH ####[facility] [address] [place], [place] [address]Dr. Grace Franko EGFR-NON AF PARAGUAYAN 47 mL/min/1.73m2 Critically low >=60 The [facility] Comment on above: Performed By: #### T 7, CMP, TSH ####[facility] [address] [address]Dr. Grace Franko Globulin (S) [Mass/Vol] 3.3 g/dL Normal The [facility] Comment on above: Performed By: #### T 7, CMP, TSH ####[facility] [address] [address]Dr. Grace Franko Glucose [Mass/Vol] 88 mg/dL Normal 74-106 [facility] Comment on above: Performed By: #### T 7, CMP, TSH ####[facility] [address] [address]Dr. Grace Abdul Potassium [Moles/Vol] 4.2 mmol/L Normal 3.5-5.1 [facility] Comment on above: Performed By: #### T 7, CMP, TSH ####[facility] [address] [address]Dr. Grace Abdul Protein [Mass/Vol] 6.8 g/dL Normal 6.4-8.2 [facility] Comment on above: Performed By: #### T 7, CMP, TSH ####[facility] [address] [id number]. Grace Abdul Sodium [Moles/Vol] 134 mmol/L Critically low 136-145 [facility] Comment on above: Performed By: #### T 7, CMP, TSH ####[facility] [address] [address]Dr. Grace Abdul Urea nitrogen [Mass/Vol] 33.0 mg/dL Critically high 7.0-18.0 [facility] Comment on above: Performed By: #### T 7, CMP, TSH ####[facility] [address] [phone]. Grace Abdul Urea nitrogen/Creatinine [Mass ratio] 29.7 mg/mg Normal [facility] Comment on above: Performed By: #### T 7, CMP, TSH ####[facility] [address] [id number] Abdul TSHon 11-23-2021 TSH 0.469 uIU/mL Normal 0.358-3.740 [facility] Comment on above: Performed By: #### T 7, CMP, TSH ####[facility] [address] [phone]. Grace Abdul CBC AUTO DIFFon 11-17-2021 BASO # 0.0 103/ul Normal 0.0-0.1 [facility] Comment on above: Performed By: #### C VDTBH #### [facility] [address] [place], [place] [address] Dr. Grace Abdul Basophils/100 WBC (Bld) 0.2 % Normal 0.2-2.0 [facility] Comment on above: Performed By: #### C VDTBH #### [facility] [address] [place] [address] Dr. Grace Abdul EO # 0.1 103/ul Normal 0.0-0.7 [facility] Comment on above: Performed By: #### C VDTBH #### [facility] [address] [place] [address] Dr. Grace Abdul Eosinophils/100 WBC (Bld) 0.9 % Normal 0.9-7.0 [facility] Comment on above: Performed By: #### C VDTBH #### [facility] [address] [place] [address] Dr. Grace Abdul Erythrocyte distribution width (RBC) [Ratio] 12.8 % Normal 11.0-15.0 [facility] Comment on above: Performed By: #### C VDTBH #### [facility] [address] [place] [address] Dr. Grace Abdul Hematocrit (Bld) [Volume fraction] 35.2 % Critically low 36.0-48.0 [facility] Comment on above: Performed By: #### C VDTBH #### [facility] [address] [place] [address] Dr. Grace Abdul Hemoglobin (Bld) [Mass/Vol] 12.1 g/dL Normal 12.0-16.0 [facility] Comment on above: Performed By: #### C VDTBH #### [facility] [address] [place] [address] Dr. Grace Abdul IG # 0.05 10e3/ul Critically high 0.00-0.03 [facility] Comment on above: Performed By: #### C VDTBH #### [facility] [address] [place] [address] Dr. Grace Abdul IG % 0.6 % Critically high 0.0-0.5 [facility] Comment on above: Performed By: #### C VDTBH #### [facility] [address] [place] [address] Dr. Grace Abdul LYMPH # 0.6 103/ul Critically low 1.2-3.8 [facility] Comment on above: Performed By: #### C VDTBH #### [facility] [address] [place] [address] Dr. Grace Abdul Lymphocytes/100 WBC (Bld) 7.4 % Critically low 20.5-60.0 [facility] Comment on above: Performed By: #### C VDTBH #### [facility] [address] [place] [address] Dr. Grace Abdul MANUAL DIFF REQ NO Normal [facility] Comment on above: Performed By: #### C VDTBH #### [facility] [address] [place] [address] Dr. Grace Abdul MCH (RBC) [Entitic mass] 31.5 pg Normal 26.7-34.0 [facility] Comment on above: Performed By: #### C VDTBH #### [facility] [address] [place] [address] Dr. Grace Abdul MCHC (RBC) [Mass/Vol] 34.4 g/dL Normal 29.9-35.2 [facility] Comment on above: Performed By: #### C VDTBH #### [facility] [address] [place] [address] Dr. Grace Abdul MCV (RBC) [Entitic vol] 91.7 fL Normal 81.0-99.0 [facility] Comment on above: Performed By: #### C VDTBH #### [facility] [address] [place] [address] Dr. Grace Abdul MONO # 1.0 103/ul Critically high 0.3-0.8 [facility] Comment on above: Performed By: #### C VDTBH #### [facility] [address] [place] [address] Dr. Grace Abdul Monocytes/100 WBC (Bld) 12.1 % Critically high 1.7-12.0 [facility] Comment on above: Performed By: #### C VDTBH #### [facility] [address] [place], [place] [id number] Dr. Grace Abdul NEUT # 6.3 103/ul Normal 1.4-6.5 The [facility] Comment on above: Performed By: #### C VDTBH #### [facility] [address] [place] [address] Dr. Grace Abdul Neutrophils/100 WBC (Bld) 78.8 % Critically high 43.0-75.0 [facility] Comment on above: Performed By: #### C VDTBH #### [facility] [address] [place] [address] Dr. Grace Abdul Platelet mean volume (Bld) [Entitic vol] 9.1 fL Critically low 9.5-13.5 The [facility] Comment on above: Performed By: #### C VDTBH #### [facility] [address] [place] [address] Dr. Grace Abdul PLT 281 103/ul Normal 150-450 [facility] Comment on above: Performed By: #### C VDTBH #### [facility] [address] [place] [address] Dr. Grace Abdul RBC 3.84 106/ul Critically low 4.20-5.40 [facility] Comment on above: Performed By: #### C VDTBH #### [facility] [address] [place] [address] Dr. Grace Abdul WBC 8.0 103/ul Normal 4.0-11.0 [facility] Comment on above: Performed By: #### C VDTBH #### [facility] [address] [place] [address] Dr. Grace Abdul MAGNESIUMon 11-17-2021 Magnesium [Mass/Vol] 1.9 mg/dL Normal 1.8-2.4 [facility] Comment on above: Performed By: #### C VDTBH #### [facility] [address] [place] [address] Dr. Grace Abdul PROF CHEM 8 (BAS METB)on Anion gap [Moles/Vol] 13.9 mmol/L Normal [facility] Comment on above: Performed By: #### C VDTBH #### [facility] [address] [address] [address] Grace Abdul Calcium [Mass/Vol] 8.7 mg/dL Normal 8.5-10.1 [facility] Comment on above: Performed By: #### C VDTBH #### [facility] [address] [place] [address] Dr. Grace Abdul Chloride [Moles/Vol] 101 mmol/L Normal 98-107 [facility] Comment on above: Performed By: #### C VDTBH #### [facility] [address] [place] [address] Dr. Grace Abdul CO2 [Moles/Vol] 24.3 mmol/L Normal 21.0-32.0 [facility] Comment on above: Performed By: #### C VDTBH #### [facility] [address] [place] [address] Dr. Grace Abdul Creatinine [Mass/Vol] 0.89 mg/dL Normal 0.55-1.02 [facility] Comment on above: Performed By: #### C VDTBH #### [facility] [address] [place] [address] Dr. Grace Abdul EGFR-AF PARAGUAYAN >60 Normal >=60 [facility] Comment on above: Performed By: #### C VDTBH #### [facility] [address] [place] [address] Dr. Grace Abdul EGFR-NON AF PARAGUAYAN >60 Normal >=60 [facility] Comment on above: Performed By: #### C VDTBH #### [facility] [address] [place] [address] Dr. Grace Abdul Glucose [Mass/Vol] 97 mg/dL Normal 74-106 [facility] Comment on above: Performed By: #### C VDTBH #### [facility] [address] [place] [address] Dr. Grace Abdul Potassium [Moles/Vol] 3.2 mmol/L Critically low 3.5-5.1 [facility] Comment on above: Performed By: #### C VDTBH #### [facility] [address] [address] [address] Grace Abdul Sodium [Moles/Vol] 136 mmol/L Normal 136-145 [facility] Comment on above: Performed By: #### C VDTBH #### [facility] [address] [place] [address] Dr. Grace Abdul Urea nitrogen [Mass/Vol] 14.0 mg/dL Normal 7.0-18.0 [facility] Comment on above: Performed By: #### C VDTBH #### [facility] [address] [place] [address] Dr. Grace Abdul Urea nitrogen/Creatinine [Mass ratio] 15.7 mg/mg Normal [facility] Comment on above: Performed By: #### C VDTBH #### [facility] [address] [place] [address] Dr. Grace Abdul CBC AUTO DIFFon 11-16-2021 BASO # 0.0 103/ul Normal 0.0-0.1 [facility] Comment on above: Performed By: #### B MP #### [facility] [address] [place] [address] Dr. Grace Abdul Basophils/100 WBC (Bld) 0.2 % Normal 0.2-2.0 [facility] Comment on above: Performed By: #### B MP #### [facility] [address] [place] [address] Dr. Grace Abdul EO # 0.0 103/ul Normal 0.0-0.7 [facility] Comment on above: Performed By: #### B MP #### [facility] [address] [place] [address] Dr. Grace Abdul Eosinophils/100 WBC (Bld) 0.5 % Critically low 0.9-7.0 [facility] Comment on above: Performed By: #### B MP #### [facility] [address] [place] [address] Dr. Grace Abdul Erythrocyte distribution width (RBC) [Ratio] 12.4 % Normal 11.0-15.0 [facility] Comment on above: Performed By: #### B MP #### [facility] [address] [address] [address] Grace Abdul Hematocrit (Bld) [Volume fraction] 33.6 % Critically low 36.0-48.0 [facility] Comment on above: Performed By: #### B MP #### [facility] [address] [address] [address] Grace Abdul Hemoglobin (Bld) [Mass/Vol] 11.8 g/dL Critically low 12.0-16.0 [facility] Comment on above: Performed By: #### B MP #### [facility] [address] [address] [address] Grace Abdul IG # 0.04 10e3/ul Critically high 0.00-0.03 [facility] Comment on above: Performed By: #### B MP #### [facility] [address] [address] [address] Grace Abdul IG % 0.7 % Critically high 0.0-0.5 [facility] Comment on above: Performed By: #### B MP #### [facility] [address] [address] [address] Grace Abdul LYMPH # 0.7 103/ul Critically low 1.2-3.8 [facility] Comment on above: Performed By: #### B MP #### [facility] [address] [address] [address] Grace Abdul Lymphocytes/100 WBC (Bld) 11.1 % Critically low 20.5-60.0 [facility] Comment on above: Performed By: #### B MP #### [facility] [address] [address] [address] Grace Abdul MANUAL DIFF REQ NO Normal [facility] Comment on above: Performed By: #### B MP #### [facility] [address] [place] [address] Dr. Grace Abdul MCH (RBC) [Entitic mass] 31.5 pg Normal 26.7-34.0 [facility] Comment on above: Performed By: #### B MP #### [facility] [address] [address] [address] Grace Abdul MCHC (RBC) [Mass/Vol] 35.1 g/dL Normal 29.9-35.2 [facility] Comment on above: Performed By: #### B MP #### [facility] [address] [address] [address] Grace Abdul MCV (RBC) [Entitic vol] 89.6 fL Normal 81.0-99.0 [facility] Comment on above: Performed By: #### B MP #### [facility] [address] [address] [address] Grace Abdul MONO # 0.9 103/ul Critically high 0.3-0.8 [facility] Comment on above: Performed By: #### B MP #### [facility] [address] [place] [address] Dr. Grace Abdul Monocytes/100 WBC (Bld) 14.0 % Critically high 1.7-12.0 [facility] Comment on above: Performed By: #### B MP #### [facility] [address] [address] [address] Grace Abdul NEUT # 4.5 103/ul Normal 1.4-6.5 [facility] Comment on above: Performed By: #### B MP #### [facility] [address] [address] [address] Grace Abdul Neutrophils/100 WBC (Bld) 73.5 % Normal 43.0-75.0 [facility] Comment on above: Performed By: #### B MP #### [facility] [address] [address] [address] Grace Abdul Platelet mean volume (Bld) [Entitic vol] 9.3 fL Critically low 9.5-13.5 [facility] Comment on above: Performed By: #### B MP #### [facility] [address] [address] [address] Grace Abdul PLT 292 103/ul Normal 150-450 [facility] Comment on above: Performed By: #### B MP #### [facility] [address] [address] [address] Grace Abdul RBC 3.75 106/ul Critically low 4.20-5.40 [facility] Comment on above: Performed By: #### B MP #### [facility] [address] [address] [address] Grace Abdul WBC 6.1 103/ul Normal 4.0-11.0 [facility] Comment on above: Performed By: #### B MP #### [facility] [address] [place] [address] Dr. Grace Abdul CULTURE URINEon 11-16-2021 CULTURE URINE Culture Observations : LIGHT GROWTH OF MIXED GENITAL ALANIS. NO POTENTIAL PATHOGENS SEEN. Normal [facility] Comment on above: Performed By: #### U RCX ####[facility] [id number] [address] Grace Abdul ER URINE PROFILEon 2 Bilirubin Ql (U) Negative Normal NEGATIVE [facility] Comment on above: Performed By: #### C VDTBH #### [facility] [address] [place] [address] Dr. Grace Abdul Clarity (U) CLEAR Normal CLEAR [facility] Comment on above: Performed By: #### C VDTBH #### [facility] [address] [place] [address] Dr. Grace Abdul Color (U) LT. YELLOW Normal YELLOW [facility] Comment on above: Performed By: #### C VDTBH #### [facility] [address] [place] [address] Dr. Grace Abdul ERUWALTER A micrscopic examination will be performed if indicated. Normal [facility] Comment on above: Performed By: #### C VDTBH #### [facility] [address] [place] [address] Dr. Grace Abdul Glucose Ql (U) Negative Normal NEGATIVE [facility] Comment on above: Performed By: #### C VDTBH #### [facility] [address] [place] [address] Dr. Grace Abdul Hemoglobin Ql (U) SMALL Abnormal NEGATIVE [facility] Comment on above: Performed By: #### C VDTBH #### [facility] [address] [place] [address] Dr. Grace Abdul Ketones Ql (U) 40 mg/dl Abnormal NEGATIVE [facility] Comment on above: Performed By: #### C VDTBH #### [facility] [address] [place] [address] Dr. Grace Abdul LEUKOCYTES SMALL Abnormal NEGATIVE [facility] Comment on above: Performed By: #### C VDTBH #### [facility] [address] [place] [address] Dr. Grace Abdul Nitrite Ql (U) Negative Normal NEGATIVE [facility] Comment on above: Performed By: #### C VDTBH #### [facility] [address] [place] [address] Dr. Grace Abdul pH (U) 7.0 [pH] Normal 5-9 [facility] Comment on above: Performed By: #### C VDTBH #### [facility] [address] [place] [address] Dr. Grace Abdul SPEC GRAVITY 1.010 Normal 1.005-<=1.025 [facility] Comment on above: Performed By: #### C VDTBH #### [facility] [address] [place] [address] Dr. Grace Abdul UA PROTEIN Negative Normal NEGATIVE/ TRACE [facility] Comment on above: Performed By: #### C VDTBH #### [facility] [address] [place] [address] Dr. Grace Abdul UR MICRO IND INDICATED Normal [facility] Comment on above: Performed By: #### C VDTBH #### [facility] [address] [place] [address] Dr. Grace Abdul Urobilinogen Qn (U) 0.2 {Ashley'U}/dL Normal 0.2 - 1. 0 [facility] Comment on above: Performed By: #### C VDTBH #### [facility] [address] [place] [address] Dr. Grace Abdul MAGNESIUMon 11-16-2021 Magnesium [Mass/Vol] 1.8 mg/dL Normal 1.8-2.4 [facility] Comment on above: Performed By: #### C VDTB #### [facility] [address] [place] [address] Dr. Grace Abdul PROF CHEM 8 (BAS METB)on Anion gap [Moles/Vol] 12.7 mmol/L Normal [facility] Comment on above: Performed By: #### B MP #### [facility] [address] [address] [address] Grace Abdul Calcium [Mass/Vol] 8.3 mg/dL Critically low 8.5-10.1 [facility] Comment on above: Performed By: #### B MP #### [facility] [address] [place] [address] Dr. Grace Abdul CO2 [Moles/Vol] 24.4 mmol/L Normal 21.0-32.0 [facility] Comment on above: Performed By: #### B MP #### [facility] [address] [place] [address] Dr. Grace Abdul Creatinine [Mass/Vol] 1.16 mg/dL Critically high 0.55-1.02 [facility] Comment on above: Performed By: #### B MP #### [facility] [address] [place] [address] Dr. Grace Abdul EGFR-AF PARAGUAYAN 54 mL/min/1.73m2 Critically low >=60 [facility] Comment on above: Performed By: #### B MP #### [facility] [address] [address] [address] Grace Abdul EGFR-NON AF PARAGUAYAN 45 mL/min/1.73m2 Critically low >=60 [facility] Comment on above: Performed By: #### B MP #### [facility] [address] [place] [address] Dr. Grace Abdul Glucose [Mass/Vol] 116 mg/dL Critically high 74-106 [facility] Comment on above: Performed By: #### B MP #### [facility] [address] [address] [address] Grace Abdul Urea nitrogen [Mass/Vol] 20.0 mg/dL Critically high 7.0-18.0 [facility] Comment on above: Performed By: #### B MP #### [facility] [address] [address] [address] Grace Abdul Urea nitrogen/Creatinine [Mass ratio] 17.2 mg/mg Normal [facility] Comment on above: Performed By: #### B MP #### [facility] [address] [address] [address] Grace Abdul Anion gap [Moles/Vol] 10.0 mmol/L Normal [facility] Comment on above: Performed By: #### B MP #### [facility] [address] [address] [address] Grace Abdul Calcium [Mass/Vol] 8.8 mg/dL Normal 8.5-10.1 [facility] Comment on above: Performed By: #### B MP #### [facility] [address] [address] [address] Grace Abdul Chloride [Moles/Vol] 96 mmol/L Critically low 98-107 [facility] Comment on above: Performed By: #### B MP #### [facility] [address] [address] [address] Grace Abdul CO2 [Moles/Vol] 26.1 mmol/L Normal 21.0-32.0 [facility] Comment on above: Performed By: #### B MP #### [facility] [address] [address] [address] Grace Abdul Creatinine [Mass/Vol] 1.11 mg/dL Critically high 0.55-1.02 [facility] Comment on above: Performed By: #### B MP #### [facility] [address] [address] [address] Grace Abdul EGFR-AF PARAGUAYAN 57 mL/min/1.73m2 Critically low >=60 [facility] Comment on above: Performed By: #### B MP #### [facility] [address] [address] [address] Grace Abdul EGFR-NON AF PARAGUAYAN 47 mL/min/1.73m2 Critically low >=60 [facility] Comment on above: Performed By: #### B MP #### [facility] [address] [address] [address] Grace Abdul Glucose [Mass/Vol] 94 mg/dL Normal 74-106 [facility] Comment on above: Performed By: #### B MP #### [facility] [address] [address] [address] Grace Abdul Potassium [Moles/Vol] 3.1 mmol/L Critically low 3.5-5.1 [facility] Comment on above: Performed By: #### B MP #### [facility] [address] [place] [address] Dr. Grace Abdul Performed By: #### C VDTBH #### [facility] [address] [place] [address] Dr. Grace Abdul Sodium [Moles/Vol] 129 mmol/L Critically low 136-145 [facility] Comment on above: Performed By: #### B MP #### [facility] [address] [place] [address] Dr. Grace Abdul Urea nitrogen [Mass/Vol] 16.0 mg/dL Normal 7.0-18.0 [facility] Comment on above: Performed By: #### B MP #### [facility] [address] [address] [address] Grace Abdul Urea nitrogen/Creatinine [Mass ratio] 14.4 mg/mg Normal [facility] Comment on above: Performed By: #### B MP #### [facility] [address] [address] [address] Grace Abdul Anion gap [Moles/Vol] 12.6 mmol/L [facility] Comment on above: Performed By: #### C VDTBH #### [facility] [address] [address] [address] Grace Abdul Calcium [Mass/Vol] 8.6 mg/dL Normal 8.5-10.1 [facility] Comment on above: Performed By: #### C VDTBH #### [facility] [address] [address] [address] Grace Abdul Chloride [Moles/Vol] 95 mmol/L Critically low 98-107 [facility] Comment on above: Performed By: #### B MP #### [facility] [address] [place] [address] Dr. Grace Abdul Performed By: #### C VDTBH #### [facility] [address] [place] [address] Dr. Grace Abdul CO2 [Moles/Vol] 22.5 mmol/L Normal 21.0-32.0 [facility] Comment on above: Performed By: #### C VDTBH #### [facility] [address] [place] [address] Dr. Grace Abdul Creatinine [Mass/Vol] 0.95 mg/dL Normal 0.55-1.02 [facility] Comment on above: Performed By: #### C VDTBH #### [facility] [address] [place] [address] Dr. Grace Abdul EGFR-AF PARAGUAYAN >60 Normal >=60 [facility] Comment on above: Performed By: #### C VDTBH #### [facility] [address] [place] [address] Dr. Grace Abdul EGFR-NON AF PARAGUAYAN 56 mL/min/1.73m2 Critically low >=60 [facility] Comment on above: Performed By: #### C VDTBH #### [facility] [address] [place] [address] Dr. Grace Abdul Glucose [Mass/Vol] 92 mg/dL Normal 74-106 [facility] Comment on above: Performed By: #### C VDTBH #### [facility] [address] [place] [address] Dr. Grace Abdul Sodium [Moles/Vol] 127 mmol/L Critically low 136-145 [facility] Comment on above: Performed By: #### C VDTBH #### [facility] [address] [place] [address] Dr. Grace Abdul Urea nitrogen [Mass/Vol] 18.0 mg/dL Normal 7.0-18.0 [facility] Comment on above: Performed By: #### C VDTBH #### [facility] [address] [place] [address] Dr. Grace Abdul Urea nitrogen/Creatinine [Mass ratio] 18.9 mg/mg Normal [facility] Comment on above: Performed By: #### C VDTBH #### [facility] [address] [place] [address] Dr. Grace Abdul URINE MICROSCOPIC ONLYon BACTERIA TRACE Abnormal NONE SEEN [facility] Comment on above: Performed By: #### C VDTBH #### [facility] [address] [place] [address] Dr. Grace Abdul Bacteria identified Cx Nom (U) INDICATED Normal [facility] Comment on above: Performed By: #### C VDTBH #### [facility] [address] [place] [address] Dr. Grace Abdul CAST NONE SEEN Normal NONE SEEN [facility] Comment on above: Performed By: #### C VDTBH #### [facility] [address] [place] [address] Dr. Grace Abdul Crystals LM Nom (Urine sed) NONE SEEN Normal NONE SEEN [facility] Comment on above: Performed By: #### C VDTBH #### [facility] [address] [place] [address] Dr. Grace Abdul Epithelial cells LM Ql (Urine sed) FEW Abnormal NONE SEEN /RARE [facility] Comment on above: Performed By: #### C VDTBH #### [facility] [address] [place] [address] Dr. Grace Abdul MUCOUS NONE SEEN Normal NONE SEEN [facility] Comment on above: Performed By: #### C VDTBH #### [facility] [address] [place] [address] Dr. Grace Abdul RBC 2-5 Abnormal 0-2 [facility] Comment on above: Performed By: #### C VDTBH #### [facility] [address] [place] [address] Dr. Grace Abdul WBC 5-10 Abnormal NONE SEEN [facility] Comment on above: Performed By: #### C VDTBH #### [facility] [address] [place] [address] Dr. Grace Abdul AMYLASEon 11-15-2021 Amylase [Catalytic activity/Vol] 94 U/L Normal 25-115 [facility] Comment on above: Performed By: #### C VDTBH #### [facility] [address] [place] [address] Dr. Grace Abdul BNPon 11-15-2021 Natriuretic peptide B (Bld) [Mass/Vol] 357.0 pg/mL Normal <=1,800.0 [facility] Comment on above: Performed By: #### C VDTBH #### [facility] [address] [place] [address] Dr. Grace Abdul CARDIAC JOVITA ADMITon 022 CK [Catalytic activity/Vol] 66 U/L Normal 26-192 [facility] Comment on above: Performed By: #### C VDTBH #### [facility] [address] [place] [address] Dr. Grace Abdul CK.MB [Mass/Vol] 2.19 ng/mL Normal <=3.60 [facility] Comment on above: Performed By: #### C VDTBH #### [facility] [address] [place] [address] Dr. Grace Abdul HSTROP 9.5 pg/mL Normal 4.0-51.3 [facility] Comment on above: Result Comment: CUT- OFF POINTS HAVE BEEN ESTABLISHED BASED ON THE FOURTH UNIVERSAL DEFINITIONS OF MYOCARDIAL INFARCTION. THE UPPER REFERENCE LIMIT (URL) OF TROPONIN, DEFINED THE 99TH PERCENTILE OF cTnI DISTRIBUTION IN A REFERENCE POPULATION, HAS BEEN CONFIRMED THE DECISION THRESHOLD FOR AK DIAGNOSIS. Performed By: #### C VDTBH #### [facility] [address] [place] [address] Dr. Grace Abdul JOHNNA 73 ng/mL Normal 9-82 [facility] Comment on above: Performed By: #### C VDTB #### [facility] [address] [address] [address] Grace Abdul CBC AUTO DIFFon 11-15-2021 BASO # 0.0 103/ul Normal 0.0-0.1 [facility] Comment on above: Performed By: #### B MP #### [facility] [address] [address] [address] Grace Abdul Basophils/100 WBC (Bld) 0.1 % Critically low 0.2-2.0 [facility] Comment on above: Performed By: #### B MP #### [facility] [address] [address] [address] Grace Abdul EO # 0.0 103/ul Normal 0.0-0.7 [facility] Comment on above: Performed By: #### B MP #### [facility] [address] [place] [address] Dr. Grace Abdul Eosinophils/100 WBC (Bld) 0.1 % Critically low 0.9-7.0 [facility] Comment on above: Performed By: #### B MP #### [facility] [address] [place] [address] Dr. Grace Abdul Erythrocyte distribution width (RBC) [Ratio] 11.9 % Normal 11.0-15.0 [facility] Comment on above: Performed By: #### B MP #### [facility] [address] [place] [address] Dr. Grace Abdul Hematocrit (Bld) [Volume fraction] 36.6 % Normal 36.0-48.0 [facility] Comment on above: Performed By: #### B MP #### [facility] [address] [address] [address] Grace Abdul Hemoglobin (Bld) [Mass/Vol] 13.2 g/dL Normal 12.0-16.0 [facility] Comment on above: Performed By: #### B MP #### [facility] [address] [address] [address] Grace Abdul IG # 0.05 10e3/ul Critically high 0.00-0.03 [facility] Comment on above: Performed By: #### B MP #### [facility] [address] [address] [address] Grace Abdul IG % 0.7 % Critically high 0.0-0.5 [facility] Comment on above: Performed By: #### B MP #### [facility] [address] [address] [address] Grace Abdul LYMPH # 0.7 103/ul Critically low 1.2-3.8 [facility] Comment on above: Performed By: #### B MP #### [facility] [address] [place] [address] Dr. Grace Abdul Lymphocytes/100 WBC (Bld) 9.8 % Critically low 20.5-60.0 [facility] Comment on above: Performed By: #### B MP #### [facility] [address] [place] [address] Dr. Grace Abdul MANUAL DIFF REQ NO Normal [facility] Comment on above: Performed By: #### B MP #### [facility] [address] [place] [address] Dr. Grace Abdul MCH (RBC) [Entitic mass] 31.5 pg Normal 26.7-34.0 [facility] Comment on above: Performed By: #### B MP #### [facility] [address] [place] [address] Dr. Grace Abdul MCHC (RBC) [Mass/Vol] 36.1 g/dL Critically high 29.9-35.2 [facility] Comment on above: Performed By: #### B MP #### [facility] [address] [place] [address] Dr. Grace Abdul MCV (RBC) [Entitic vol] 87.4 fL Normal 81.0-99.0 [facility] Comment on above: Performed By: #### B MP #### [facility] [address] [place] [address] Dr. Grace Abdul MONO # 0.9 103/ul Critically high 0.3-0.8 [facility] Comment on above: Performed By: #### B MP #### [facility] [address] [address] [address] Grace Abdul Monocytes/100 WBC (Bld) 12.4 % Critically high 1.7-12.0 [facility] Comment on above: Performed By: #### B MP #### [facility] [address] [address] [address] Grace Abdul NEUT # 5.8 103/ul Normal 1.4-6.5 [facility] Comment on above: Performed By: #### B MP #### [facility] [address] [address] [address] Grace Abdul Neutrophils/100 WBC (Bld) 76.9 % Critically high 43.0-75.0 [facility] Comment on above: Performed By: #### B MP #### [facility] [address] [place] [address] Dr. Grace Abdul Platelet mean volume (Bld) [Entitic vol] 9.0 fL Critically low 9.5-13.5 [facility] Comment on above: Performed By: #### B MP #### [facility] [address] [address] [address] Grace Abdul PLT 361 103/ul Normal 150-450 [facility] Comment on above: Performed By: #### B MP #### [facility] [address] [place] [address] Dr. Grace Abdul RBC 4.19 106/ul Critically low 4.20-5.40 [facility] Comment on above: Performed By: #### B MP #### [facility] [address] [address] [address] Grace Abdul WBC 7.6 103/ul Normal 4.0-11.0 [facility] Comment on above: Performed By: #### B MP #### [facility] [address] [place] [address] Dr. Grace Abdul Covid-19 PCR ([facility])on 10-23 SARS-CoV-2 (COVID-19) RNA LUISITO+probe Ql (Unsp spec) Not detected Normal NOT DETECTED The [facility] Comment on above: Result Comment: When [...] for this test is supported by the [place] Superintendent of Health and Human Service's declaration that [...] used). Performed By: #### C VDTBH #### [facility] [address] [place] [address] Dr. Grace Abdul LIPASEon 11-15-2021 Lipase [Catalytic activity/Vol] 178.0 U/L Normal 73.0-393.0 [facility] Comment on above: Performed By: #### C VDTBH #### [facility] [address] [place] [address] Dr. Grace Abdul PROF 14(COMP METB)on 022 Albumin [Mass/Vol] 4.1 g/dL Normal 3.4-5.0 [facility] Comment on above: Performed By: #### C VDTBH #### [facility] [address] [place] [address] Dr. Grace Abdul Albumin/Globulin [Mass ratio] 1.2 {ratio} Normal [facility] Comment on above: Performed By: #### C VDTBH #### [facility] [address] [place] [address] Dr. Grace Abdul ALP [Catalytic activity/Vol] 63 U/L Normal 46-116 [facility] Comment on above: Performed By: #### C VDTBH #### [facility] [address] [address] [address] Grace Abdul ALT [Catalytic activity/Vol] 29 U/L Normal 14-59 [facility] Comment on above: Performed By: #### C VDTBH #### [facility] [address] [address] [address] Grace Abdul Anion gap [Moles/Vol] 14.8 mmol/L Normal [facility] Comment on above: Performed By: #### C VDTBH #### [facility] [address] [address] [address] Grace Abdul AST [Catalytic activity/Vol] 25 U/L Normal 15-37 [facility] Comment on above: Performed By: #### C VDTBH #### [facility] [address] [address] [address] Grace Abdul Bilirubin [Mass/Vol] 0.6 mg/dL Normal 0.2-1.0 [facility] Comment on above: Performed By: #### C VDTBH #### [facility] [address] [address] [address] Grace Abdul Calcium [Mass/Vol] 9.4 mg/dL Normal 8.5-10.1 [facility] Comment on above: Performed By: #### C VDTBH #### [facility] [address] [address] [address] Grace Abdul Chloride [Moles/Vol] 83 mmol/L Critically low 98-107 [facility] Comment on above: Performed By: #### C VDTBH #### [facility] [address] [address] [address] Grace Abdul CO2 [Moles/Vol] 24.4 mmol/L Normal 21.0-32.0 [facility] Comment on above: Performed By: #### C VDTBH #### [facility] [address] [address] [address] Grace Abdul Creatinine [Mass/Vol] 1.15 mg/dL Critically high 0.55-1.02 [facility] Comment on above: Performed By: #### C VDTBH #### [facility] [address] [address] [address] Grace Abdul EGFR-AF PARAGUAYAN 55 mL/min/1.73m2 Critically low >=60 [facility] Comment on above: Performed By: #### C VDTBH #### [facility] [address] [address] [address] Grace Abdul EGFR-NON AF PARAGUAYAN 45 mL/min/1.73m2 Critically low >=60 [facility] Comment on above: Performed By: #### C VDTBH #### [facility] [address] [address] [address] Grace Abdul Globulin (S) [Mass/Vol] 3.4 g/dL Normal [facility] Comment on above: Performed By: #### C VDTBH #### [facility] [address] [place] [address] Dr. Grace Abdul Glucose [Mass/Vol] 147 mg/dL Critically high 74-106 [facility] Comment on above: Performed By: #### C VDTBH #### [facility] [address] [address] [address] Grace Abdul Potassium [Moles/Vol] 3.2 mmol/L Critically low 3.5-5.1 [facility] Comment on above: Performed By: #### C VDTBH #### [facility] [address] [place] [address] Dr. Grace Abdul Protein [Mass/Vol] 7.5 g/dL Normal 6.4-8.2 [facility] Comment on above: Performed By: #### C VDTBH #### [facility] [address] [address] [address] Grace Abdul Urea nitrogen/Creatinine [Mass ratio] 21.7 mg/mg Normal [facility] Comment on above: Performed By: #### C VDTBH #### [facility] [address] [place] [address] Dr. Grace Abdul PROF CHEM 8 (BAS METB)on Anion gap [Moles/Vol] 13.6 mmol/L Normal [facility] Comment on above: Performed By: #### C VDTBH #### [facility] [address] [address] [address] Grace Abdul Calcium [Mass/Vol] 8.8 mg/dL Normal 8.5-10.1 [facility] Comment on above: Performed By: #### C VDTBH #### [facility] [address] [address] [address] Grace Abdul Chloride [Moles/Vol] 88 mmol/L Critically low 98-107 [facility] Comment on above: Performed By: #### C VDTBH #### [facility] [address] [address] [address] Grace Abdul CO2 [Moles/Vol] 21.8 mmol/L Normal 21.0-32.0 [facility] Comment on above: Performed By: #### C VDTBH #### [facility] [address] [address] [address] Grace Abdul Creatinine [Mass/Vol] 1.11 mg/dL Critically high 0.55-1.02 [facility] Comment on above: Performed By: #### C VDTBH #### [facility] [address] [address] [address] Grace Abdul EGFR-AF PARAGUAYAN 57 mL/min/1.73m2 Critically low >=60 [facility] Comment on above: Performed By: #### C VDTBH #### [facility] [address] [address] [address] Grace Abdul EGFR-NON AF PARAGUAYAN 47 mL/min/1.73m2 Critically low >=60 [facility] Comment on above: Performed By: #### C VDTBH #### [facility] [address] [address] [address] Grace Abdul Glucose [Mass/Vol] 132 mg/dL Critically high 74-106 [facility] Comment on above: Performed By: #### C VDTBH #### [facility] [address] [address] [address] Grace Abdul Potassium [Moles/Vol] 3.4 mmol/L Critically low 3.5-5.1 [facility] Comment on above: Performed By: #### C VDTBH #### [facility] [address] [place] [address] Dr. Grace Abdul Sodium [Moles/Vol] 120 mmol/L Critically low 136-145 Th e [facility] Comment on above: Result Comment: Test Repeated. Critical Value Verified Performed By: #### C VDTBH #### [facility] [address] [place] [address] Dr. Grace Abdul Urea nitrogen [Mass/Vol] 25.0 mg/dL Critically high 7.0-18.0 [facility] Comment on above: Performed By: #### C VDTBH #### [facility] [address] [place] [address] Dr. Grace Abdul Urea nitrogen/Creatinine [Mass ratio] 22.5 mg/mg Normal [facility] Comment on above: Performed By: #### C VDTBH #### [facility] [address] [place] [address] Dr. Grace Abdul PROTIMEon 11-15-2021 INR Coag (PPP) [Relative time] 0.94 {INR} Normal [facility] Comment on above: Performed By: #### C VDTBH #### [facility] [address] [place] [address] Dr. Grace Abdul INR GUIDELINES SEE BELOW Normal [facility] Comment on above: Result Comment: DURAN RED INR: 2.0 - 3.0 CONDITIONS NOT LISTED BELOW 2.5 - 3.5 FOR PROSTHETIC HEART VALVE REPLACEMENT 2.5 - 3.5 RECURRENT THROMBOSIS Performed By: #### C VDTBH #### [facility] [address] [place] [address] Dr. Grace Abdul PT Coag (PPP) [Time] 10.2 s Normal 9.0-11.6 [facility] Comment on above: Performed By: #### C VDTBH #### [facility] [address] [place] [address] Dr. Grace Abdul XR ABD FLAT UP_PA [...] JARET LINARES Date: 2021-11-15 13:56 Normal [facility] BNPon 11-11-2021 Natriuretic peptide B (Bld) [Mass/Vol] 546.0 pg/mL Normal <=1,800.0 [facility] Comment on above: Performed By: #### C MP, TSH, HSTROPN, BNP ####[facility] [id number] [address] Grace Abdul CBC AUTO DIFFon 11-11-2021 BASO # 0.0 103/ul Normal 0.0-0.1 [facility] Comment on above: Performed By: #### C BC #### [facility] [address] [address] [address] Grace Abdul Basophils/100 WBC (Bld) 0.3 % Normal 0.2-2.0 [facility] Comment on above: Performed By: #### C BC #### [facility] [address] [address] [address] Grace Abdul EO # 0.0 103/ul Normal 0.0-0.7 [facility] Comment on above: Performed By: #### C BC #### [facility] [address] [address] [address] Grace Abdul Eosinophils/100 WBC (Bld) 0.5 % Critically low 0.9-7.0 [facility] Comment on above: Performed By: #### C BC #### [facility] [address] [address] [address] Grace Abdul Erythrocyte distribution width (RBC) [Ratio] 12.9 % Normal 11.0-15.0 [facility] Comment on above: Performed By: #### C BC #### [facility] [address] [place] [address] Dr. Grace Abdul Hematocrit (Bld) [Volume fraction] 36.1 % Normal 36.0-48.0 [facility] Comment on above: Performed By: #### C BC #### [facility] [address] [place] [address] Dr. Grace Abdul Hemoglobin (Bld) [Mass/Vol] 12.3 g/dL Normal 12.0-16.0 [facility] Comment on above: Performed By: #### C BC #### [facility] [address] [place] [address] Dr. Grace Abdul IG # 0.01 10e3/ul Normal 0.00-0.03 [facility] Comment on above: Performed By: #### C BC #### [facility] [address] [place] [address] Dr. Grace Abdul IG % 0.3 % Normal 0.0-0.5 [facility] Comment on above: Performed By: #### C BC #### [facility] [address] [place] [address] Dr. Grace Abdul LYMPH # 0.6 103/ul Critically low 1.2-3.8 [facility] Comment on above: Performed By: #### C BC #### [facility] [address] [place] [address] Dr. Grace Abdul Lymphocytes/100 WBC (Bld) 14.8 % Critically low 20.5-60.0 [facility] Comment on above: Performed By: #### C BC #### [facility] [address] [place] [address] Dr. Grace Abdul MANUAL DIFF REQ NO Normal [facility] Comment on above: Performed By: #### C BC #### [facility] [address] [place] [address] Dr. Grace Abdul MCH (RBC) [Entitic mass] 31.5 pg Normal 26.7-34.0 [facility] Comment on above: Performed By: #### C BC #### [facility] [address] [address] [address] Grace Abdul MCHC (RBC) [Mass/Vol] 34.1 g/dL Normal 29.9-35.2 [facility] Comment on above: Performed By: #### C BC #### [facility] [address] [address] [address] Grace Abdul MCV (RBC) [Entitic vol] 92.6 fL Normal 81.0-99.0 [facility] Comment on above: Performed By: #### C BC #### [facility] [address] [address] [address] Grace Abdul MONO # 0.5 103/ul Normal 0.3-0.8 [facility] Comment on above: Performed By: #### C BC #### [facility] [address] [address] [address] Grace Abdul Monocytes/100 WBC (Bld) 13.5 % Critically high 1.7-12.0 [facility] Comment on above: Performed By: #### C BC #### [facility] [address] [place] [address] Dr. Grace Abdul NEUT # 2.7 103/ul Normal 1.4-6.5 [facility] Comment on above: Performed By: #### C BC #### [facility] [address] [address] [address] Grace Abdul Neutrophils/100 WBC (Bld) 70.6 % Normal 43.0-75.0 [facility] Comment on above: Performed By: #### C BC #### [facility] [address] [address] [address] Grace Abdul Platelet mean volume (Bld) [Entitic vol] 9.2 fL Critically low 9.5-13.5 [facility] Comment on above: Performed By: #### C BC #### [facility] [address] [address] [address] Grace Abdul PLT 279 103/ul Normal 150-450 [facility] Comment on above: Performed By: #### C BC #### [facility] [address] [address] [address] Grace Abdul RBC 3.90 106/ul Critically low 4.20-5.40 [facility] Comment on above: Performed By: #### C BC #### [facility] [address] [address] [address] Grace Abdul WBC 3.9 103/ul Critically low 4.0-11.0 [facility] Comment on above: Performed By: #### C BC #### [facility] [address] [place] [address] Dr. Grace Abdul PROF 14(COMP METB)on 022 Albumin [Mass/Vol] 3.3 g/dL Critically low 3.4-5.0 [facility] Comment on above: Performed By: #### C MP, TSH, HSTROPN, BNP #### [facility] [address] [place] [address] Dr. Grace Abdul Albumin/Globulin [Mass ratio] 1.2 {ratio} Normal [facility] Comment on above: Performed By: #### C MP, TSH, HSTROPN, BNP #### [facility] [address] [place] [address] Dr. Grace Abdul ALP [Catalytic activity/Vol] 60 U/L Normal 46-116 [facility] Comment on above: Performed By: #### C MP, TSH, HSTROPN, BNP #### [facility] [address] [place] [address] Dr. Grace Abdul ALT [Catalytic activity/Vol] 26 U/L Normal 14-59 [facility] Comment on above: Performed By: #### C MP, TSH, HSTROPN, BNP #### [facility] [address] [place] [address] Dr. Grace Abdul Anion gap [Moles/Vol] 14.8 mmol/L Normal [facility] Comment on above: Performed By: #### C MP, TSH, HSTROPN, BNP #### [facility] [address] [place], [place] [id number] Dr. Grace Abdul AST [Catalytic activity/Vol] 20 U/L Normal 15-37 [facility] Comment on above: Performed By: #### C MP, TSH, HSTROPN, BNP #### [facility] [address] [place] [address] Dr. Grace Abdul Bilirubin [Mass/Vol] 0.3 mg/dL Normal 0.2-1.0 [facility] Comment on above: Performed By: #### C MP, TSH, HSTROPN, BNP #### [facility] [address] [place] [address] Dr. Grace Abdul Calcium [Mass/Vol] 8.2 mg/dL Critically low 8.5-10.1 [facility] Comment on above: Performed By: #### C MP, TSH, HSTROPN, BNP #### [facility] [address] [place] [address] Dr. Grace Abdul Chloride [Moles/Vol] 100 mmol/L Normal 98-107 [facility] Comment on above: Performed By: #### C MP, TSH, HSTROPN, BNP #### [facility] [address] [place] [address] Dr. Grace Abdul CO2 [Moles/Vol] 23.8 mmol/L Normal 21.0-32.0 [facility] Comment on above: Performed By: #### C MP, TSH, HSTROPN, BNP #### [facility] [address] [place] [address] Dr. Grace Abdul Creatinine [Mass/Vol] 1.27 mg/dL Critically high 0.55-1.02 [facility] Comment on above: Performed By: #### C MP, TSH, HSTROPN, BNP #### [facility] [address] [place] [address] Dr. Grace Abdul EGFR-AF PARAGUAYAN 49 mL/min/1.73m2 Critically low >=60 [facility] Comment on above: Performed By: #### C MP, TSH, HSTROPN, BNP #### [facility] [facility] [address] [place] [address] Dr. Grace Abdul EGFR-NON AF PARAGUAYAN 40 mL/min/1.73m2 Critically low >=60 [facility] Comment on above: Performed By: #### C MP, TSH, HSTROPN, BNP #### [facility] [address] [place] [address] Dr. Grace Abdul Globulin (S) [Mass/Vol] 2.7 g/dL Normal [facility] Comment on above: Performed By: #### C MP, TSH, HSTROPN, BNP #### [facility] [address] [place] [address] Dr. Grace Abdul Glucose [Mass/Vol] 116 mg/dL Critically high 74-106 [facility] Comment on above: Performed By: #### C MP, TSH, HSTROPN, BNP #### [facility] [address] [place] [address] Dr. Grace Abdul Potassium [Moles/Vol] 3.6 mmol/L Normal 3.5-5.1 [facility] Comment on above: Performed By: #### C MP, TSH, HSTROPN, BNP #### [facility] [address] [place] [address] Dr. Grace Abdul Protein [Mass/Vol] 6.0 g/dL Critically low 6.4-8.2 [facility] Comment on above: Performed By: #### C MP, TSH, HSTROPN, BNP #### [facility] [address] [place] [address] Dr. Grace Abdul Sodium [Moles/Vol] 135 mmol/L Critically low 136-145 [facility] Comment on above: Performed By: #### C MP, TSH, HSTROPN, BNP #### [facility] [address] [place] [address] Dr. Grace Abdul Urea nitrogen [Mass/Vol] 25.0 mg/dL Critically high 7.0-18.0 [facility] Comment on above: Performed By: #### C MP, TSH, HSTROPN, BNP #### [facility] [address] [place] [address] Dr. Grace Abdul Urea nitrogen/Creatinine [Mass ratio] 19.7 mg/mg Normal [facility] Comment on above: Performed By: #### C MP, TSH, HSTROPN, BNP #### [facility] [address] [place] [address] Dr. Grace Abdul PROTIMEon 11-11-2021 INR Coag (PPP) [Relative time] 0.95 {INR} Normal [facility] Comment on above: Performed By: #### B MP #### [facility] [address] [place] [address] Dr. Grace Abdul INR GUIDELINES SEE BELOW Normal [facility] Comment on above: Result Comment: DURNA RED INR: 2.0 - 3.0 CONDITIONS NOT LISTED BELOW 2.5 - 3.5 FOR PROSTHETIC HEART VALVE REPLACEMENT 2.5 - 3.5 RECURRENT THROMBOSIS Performed By: #### B MP #### [facility] [address] [place] [address] Dr. Grace Abdul PT Coag (PPP) [Time] 10.3 s Normal 9.0-11.6 [facility] Comment on above: Performed By: #### B MP #### [facility] [address] [place] [address] Dr. Grace Abdul PTTon 11-11-2021 aPTT Coag (Bld) [Time] 21.3 s Critically low 22.3-36.2 [facility] Comment on above: Performed By: #### B MP #### [facility] [address] [place] [address] Dr. Grace Abdul TROPONIN, HIGH SENSITIVITYon 11-11-2021 HSTROP 6.5 pg/mL Normal 4.0-51.3 [facility] Comment on above: Result Comment: CUT- OFF POINTS HAVE BEEN ESTABLISHED BASED ON THE FOURTH UNIVERSAL DEFINITIONS OF MYOCARDIAL INFARCTION. THE UPPER REFERENCE LIMIT (URL) OF TROPONIN, DEFINED THE 99TH PERCENTILE OF cTnI DISTRIBUTION IN A REFERENCE POPULATION, HAS BEEN CONFIRMED THE DECISION THRESHOLD FOR AK DIAGNOSIS. Performed By: #### C MP, TSH, HSTROPN, BNP #### [facility] [address] [place] [address] Dr. Grace Abdul TSHon 11-11-2021 TSH 2.140 uIU/mL Normal 0.358-3.740 [facility] Comment on above: Performed By: #### C MP, TSH, HSTROPN, BNP ####[facility] [id number] [place], [place] [id number]. Grace Abdul XR CHEST 1 Von 11-11-2021 [...] KRANTHI CONNORS Date: 2021-11-11 13:34 Normal [facility] CARDIAC JOVITA ADMITon 022 CK [Catalytic activity/Vol] 89 U/L Normal 26-192 [facility] Comment on above: Performed By: #### C VDTBH #### [facility] [address] [address] [address] Grace Abdul CK.MB [Mass/Vol] 1.92 ng/mL Normal <=3.60 [facility] Comment on above: Performed By: #### C VDTBH #### [facility] [address] [address] [address] Grace Abdul HSTROP 5.7 pg/mL Normal 4.0-51.3 [facility] Comment on above: Result Comment: CUT- OFF POINTS HAVE BEEN ESTABLISHED BASED ON THE FOURTH UNIVERSAL DEFINITIONS OF MYOCARDIAL INFARCTION. THE UPPER REFERENCE LIMIT (URL) OF TROPONIN, DEFINED THE 99TH PERCENTILE OF cTnI DISTRIBUTION IN A REFERENCE POPULATION, HAS BEEN CONFIRMED THE DECISION THRESHOLD FOR [place] DIAGNOSIS. Performed By: #### C VDTBH #### [facility] [address] [id number] Grace Abdul JOHNNA 86 ng/mL Critically high 9-82 [facility] Comment on above: Performed By: #### C VDTBH #### [facility] [address] [place] [address] Dr. Grace Abdul CBC AUTO DIFFon 09-13-2021 BASO # 0.0 103/ul Normal 0.0-0.1 [facility] Comment on above: Performed By: #### C VDTBH #### [facility] [address] [place] [address] Dr. Grace Abdul Basophils/100 WBC (Bld) 0.5 % Normal 0.2-2.0 [facility] Comment on above: Performed By: #### C VDTBH #### [facility] [address] [place] [address] Dr. Grace Abdul EO # 0.0 103/ul Normal 0.0-0.7 [facility] Comment on above: Performed By: #### C VDTBH #### [facility] [address] [place] [address] Dr. Grace Abdul Eosinophils/100 WBC (Bld) 0.7 % Critically low 0.9-7.0 [facility] Comment on above: Performed By: #### C VDTBH #### [facility] [address] [place] [address] Dr. Grace Abdul Erythrocyte distribution width (RBC) [Ratio] 13.2 % Normal 11.0-15.0 [facility] Comment on above: Performed By: #### C VDTBH #### [facility] [address] [place] [address] Dr. Grace Abdul Hematocrit (Bld) [Volume fraction] 34.8 % Critically low 36.0-48.0 [facility] Comment on above: Performed By: #### C VDTBH #### [facility] [address] [place] [address] Dr. Grace Abdul Hemoglobin (Bld) [Mass/Vol] 11.9 g/dL Critically low 12.0-16.0 [facility] Comment on above: Performed By: #### C VDTBH #### [facility] [address] [place] [address] Dr. Grace Abdul IG # 0.01 10e3/ul Normal 0.00-0.03 [facility] Comment on above: Performed By: #### C VDTBH #### [facility] [address] [place] [address] Dr. Grace Abdul IG % 0.2 % Normal 0.0-0.5 [facility] Comment on above: Performed By: #### C VDTBH #### [facility] [address] [place] [address] Dr. Grace Abdul LYMPH # 0.6 103/ul Critically low 1.2-3.8 [facility] Comment on above: Performed By: #### C VDTBH #### [facility] [address] [place] [address] Dr. Grace Abdul Lymphocytes/100 WBC (Bld) 14.2 % Critically low 20.5-60.0 [facility] Comment on above: Performed By: #### C VDTBH #### [facility] [address] [place] [address] Dr. Grace Abdul MANUAL DIFF REQ NO Normal [facility] Comment on above: Performed By: #### C VDTBH #### [facility] [address] [place] [address] Dr. Grace Abdul MCH (RBC) [Entitic mass] 31.5 pg Normal 26.7-34.0 [facility] Comment on above: Performed By: #### C VDTBH #### [facility] [address] [place] [address] Dr. Grace Abdul MCHC (RBC) [Mass/Vol] 34.2 g/dL Normal 29.9-35.2 [facility] Comment on above: Performed By: #### C VDTBH #### [facility] [address] [place] [address] Dr. Grace Abdul MCV (RBC) [Entitic vol] 92.1 fL Normal 81.0-99.0 [facility] Comment on above: Performed By: #### C VDTBH #### [facility] [address] [place] [address] Dr. Grace Abdul MONO # 0.7 103/ul Normal 0.3-0.8 [facility] Comment on above: Performed By: #### C VDTBH #### [facility] [address] [place] [address] Dr. Grace Abdul Monocytes/100 WBC (Bld) 15.6 % Critically high 1.7-12.0 [facility] Comment on above: Performed By: #### C VDTBH #### [facility] [address] [place] [address] Dr. rGace Abdul NEUT # 3.0 103/ul Normal 1.4-6.5 [facility] Comment on above: Performed By: #### C VDTBH #### [facility] [address] [place] [address] Dr. Grace Abdul Neutrophils/100 WBC (Bld) 68.8 % Normal 43.0-75.0 [facility] Comment on above: Performed By: #### C VDTBH #### [facility] [address] [place] [address] Dr. Grace Abdul Platelet mean volume (Bld) [Entitic vol] 9.5 fL Normal 9.5-13.5 [facility] Comment on above: Performed By: #### C VDTBH #### [facility] [address] [place] [address] Dr. Grace Abdul PLT 303 103/ul Normal 150-450 [facility] Comment on above: Performed By: #### C VDTBH #### [facility] [address] [place] [address] Dr. Grace Abdul RBC 3.78 106/ul Critically low 4.20-5.40 [facility] Comment on above: Performed By: #### C VDTBH #### [facility] [address] [place] [address] Dr. Grace Abdul WBC 4.4 103/ul Normal 4.0-11.0 [facility] Comment on above: Performed By: #### C VDTBH #### [facility] [address] [place] [address] HEAD WO CONon [...] KRANTHI CONNORS Date: 2021-09-13 13:24 Normal [facility] Covid-19 PCR (CVDTB)on 08-22 SARS-CoV-2 (COVID-19) RNA LUISITO+probe Ql (Unsp spec) Not detected Normal NOT DETECTED [facility] Comment on above: Result Comment: When [...] for this test is supported by the [place] of Health and Human Service's declaration that [...] used). Performed By: #### C VDTB #### [facility] [address] [address] [address] Grace Abdul ER URINE PROFILEon 2 Bilirubin Ql (U) Negative Normal NEGATIVE [facility] Comment on above: Performed By: #### B MP #### [facility] [address] [place] [address] Dr. Grace Abdul Clarity (U) CLEAR Normal CLEAR [facility] Comment on above: Performed By: #### B MP #### [facility] [address] [place] [address] Dr. Grace Abdul Color (U) LT. YELLOW Normal YELLOW [facility] Comment on above: Performed By: #### B MP #### [facility] [address] [place] [address] Dr. Grace Abdul ERUAHAly A micrscopic examination will be performed if indicated. Normal [facility] Comment on above: Performed By: #### B MP #### [facility] [address] [place] [address] Dr. Grace Abdul Glucose Ql (U) Negative Normal NEGATIVE [facility] Comment on above: Performed By: #### B MP #### [facility] [address] [place] [address] Dr. Grace Abdul Hemoglobin Ql (U) Negative Normal NEGATIVE [facility] Comment on above: Performed By: #### B MP #### [facility] [address] [place] [address] Dr. Grace Abdul Ketones Ql (U) TRACE Abnormal NEGATIVE [facility] Comment on above: Performed By: #### B MP #### [facility] [address] [place] [address] Dr. Grace Abdul LEUKOCYTES TRACE Abnormal NEGATIVE [facility] Comment on above: Performed By: #### B MP #### [facility] [address] [place] [address] Dr. Grace Abdul Nitrite Ql (U) Negative Normal NEGATIVE [facility] Comment on above: Performed By: #### B MP #### [facility] [address] [place] [address] Dr. Grace Abdul pH (U) 8.0 [pH] Normal 5-9 [facility] Comment on above: Performed By: #### B MP #### [facility] [address] [place] [address] Dr. Grace Abdul SPEC GRAVITY 1.015 Normal 1.005-<=1.025 [facility] Comment on above: Performed By: #### B MP #### [facility] [address] [place] [address] Dr. Grace Abdul UA PROTEIN Negative Normal NEGATIVE/ TRACE [facility] Comment on above: Performed By: #### B MP #### [facility] [address] [place] [address] Dr. Grace Abdul UR MICRO IND INDICATED Normal [facility] Comment on above: Performed By: #### B MP #### [facility] [address] [place] [address] Dr. Grace Abdul Urobilinogen Qn (U) 0.2 {Ashley'U}/dL Normal 0.2 - 1. 0 [facility] Comment on above: Performed By: #### B MP #### [facility] [address] [place] [address] Dr. Grace Abdul PROF 14(COMP METB)on 022 Albumin [Mass/Vol] 3.8 g/dL Normal 3.4-5.0 [facility] Comment on above: Performed By: #### C VDTBH #### [facility] [address] [place] [address] Dr. Grace Abdul Albumin/Globulin [Mass ratio] 1.4 {ratio} Normal [facility] Comment on above: Performed By: #### C VDTBH #### [facility] [address] [place] [address] Dr. Grace Abdul ALP [Catalytic activity/Vol] 53 U/L Normal 46-116 [facility] Comment on above: Performed By: #### C VDTBH #### [facility] [address] [place] [address] Dr. Grace Abdul ALT [Catalytic activity/Vol] 20 U/L Normal 14-59 [facility] Comment on above: Performed By: #### C VDTBH #### [facility] [address] [address] [address] Grace Abdul Anion gap [Moles/Vol] 12.0 mmol/L Normal [facility] Comment on above: Performed By: #### C VDTBH #### [facility] [address] [address] [address] Grace Abdul AST [Catalytic activity/Vol] 18 U/L Normal 15-37 [facility] Comment on above: Performed By: #### C VDTBH #### [facility] [address] [address] [address] Grace Abdul Bilirubin [Mass/Vol] 0.4 mg/dL Normal 0.2-1.0 [facility] Comment on above: Performed By: #### C VDTBH #### [facility] [address] [place] [address] Dr. Grace Abdul Calcium [Mass/Vol] 9.5 mg/dL Normal 8.5-10.1 [facility] Comment on above: Performed By: #### C VDTBH #### [facility] [address] [place] [address] Dr. Grace Abdul Chloride [Moles/Vol] 99 mmol/L Normal 98-107 [facility] Comment on above: Performed By: #### C VDTBH #### [facility] [address] [place] [address] Dr. Grace Abdul CO2 [Moles/Vol] 28.1 mmol/L Normal 21.0-32.0 [facility] Comment on above: Performed By: #### C VDTBH #### [facility] [address] [place] [address] Dr. Grace Abdul Creatinine [Mass/Vol] 1.25 mg/dL Critically high 0.55-1.02 [facility] Comment on above: Performed By: #### C VDTBH #### [facility] [address] [place] [address] Dr. Grace Abdul EGFR-AF PARAGUAYAN 50 mL/min/1.73m2 Critically low >=60 [facility] Comment on above: Performed By: #### C VDTB #### [facility] [address] [address] [address] Grace Abdul EGFR-NON AF PARAGUAYAN 41 mL/min/1.73m2 Critically low >=60 [facility] Comment on above: Performed By: #### C VDTBH #### [facility] [address] [address] [address] Grace Abdul Globulin (S) [Mass/Vol] 2.7 g/dL Normal [facility] Comment on above: Performed By: #### C VDTBH #### [facility] [address] [address] [address] Grace Abdul Glucose [Mass/Vol] 131 mg/dL Critically high 74-106 [facility] Comment on above: Performed By: #### C VDTBH #### [facility] [address] [place] [address] Dr. Grace Abdul Potassium [Moles/Vol] 4.1 mmol/L Normal 3.5-5.1 [facility] Comment on above: Performed By: #### C VDTBH #### [facility] [address] [address] [address] Grace Abdul Protein [Mass/Vol] 6.5 g/dL Normal 6.4-8.2 [facility] Comment on above: Performed By: #### C VDTBH #### [facility] [address] [address] [address] Grace Abdul Sodium [Moles/Vol] 135 mmol/L Critically low 136-145 [facility] Comment on above: Performed By: #### C VDTBH #### [facility] [address] [address] [address] Grace Abdul Urea nitrogen [Mass/Vol] 33.0 mg/dL Critically high 7.0-18.0 [facility] Comment on above: Performed By: #### C VDTBH #### [facility] [address] [place] [address] Dr. Grace Abdul Urea nitrogen/Creatinine [Mass ratio] 26.4 mg/mg [facility] Comment on above: Performed By: #### C VDTBH #### [facility] [address] [place] [address] Dr. Grace Abdul URINE MICROSCOPIC ONLYon BACTERIA NONE SEEN Normal NONE SEEN [facility] Comment on above: Performed By: #### C BC #### [facility] [address] [place] [address] Dr. Grace Abdul Bacteria identified Cx Nom (U) NOT INDICATED Normal [facility] Comment on above: Performed By: #### C BC #### [facility] [address] [place] [address] Dr. Grace Abdul CAST NONE SEEN Normal NONE SEEN [facility] Comment on above: Performed By: #### C BC #### [facility] [address] [place] [address] Dr. Grace Abdul Crystals LM Nom (Urine sed) NONE SEEN Normal NONE SEEN [facility] Comment on above: Performed By: #### C BC #### [facility] [address] [place] [address] Dr. Grace Abdul Epithelial cells LM Ql (Urine sed) FEW Abnormal NONE SEEN /RARE [facility] Comment on above: Performed By: #### C BC #### [facility] [address] [place] [address] Dr. Grace Abdul MUCOUS NONE SEEN Normal NONE SEEN [facility] Comment on above: Performed By: #### C BC #### [facility] [address] [place] [address] Dr. Grace Abdul RBC 0-2 Normal 0-2 [facility] Comment on above: Performed By: #### C BC #### [facility] [address] [place] [address] Dr. Grace Abdul WBC 0-2 Abnormal NONE SEEN The [facility] Comment on above: Performed By: #### C BC #### [facility] [address] [place] [address] Dr. Grace Abdul XR CHEST 1 Von [...] by: KRANTHI CONNORS Date: 2021-09-13 13:19 Normal [facility] CERV SP W/OBLS/FLEX/EXT 6 OR >on 12-12-2020 CERV SP W/OBLS/FLEX/EXT 6 OR > STUDY: CERV SP W/OBLS/FLEX/EXT 6 OR >; 12/12/2020 9:40 am INDICATION: NECK PAIN. COMPARISON: None. ACCESSION NUMBER(S): [id number] ORDERING CLINICIAN: Aiden Younger TECHNIQUE: AP, lateral, [...] Dense left carotid artery calcifications. Normal [facility] Vital Signs Date Time Vital Sign Value Performing Clinician Aimee pollock 12-06-2023 11:32-0400 Body height 147.3 cm Armando Morales [employer] Work Phone: [facility] [employer] 12-06-2023 11:32-0400 Body mass index (BMI) [Ratio] 34.28 kg/m2 Armando Morales [employer] Work Phone: [facility] [employer] 12-06-2023 11:32-0400 Body weight 74.39 kg Armando Morales [employer] Work Phone: [facility] 12-06-2023 11:32-0400 Diastolic blood pressure 82 mm[Hg] Armando Morales DO Work Phone: [facility] 12-06-2023 11:32-0400 Systolic blood pressure 142 mm[Hg] Armando Morales DO Work Phone: [facility] 09-21-2022 12:51-0400 Diastolic blood pressure 60 mm[Hg] Carolyn Vanegas MD Work Phone: [facility] 09-21-2022 12:51-0400 Heart rate 67 /min Carolyn Vanegas MD Work Phone: [facility] 09-21-2022 12:51-0400 Systolic blood pressure 153 mm[Hg] Carolyn Vanegas MD Work Phone: [facility] 05-14-2022 14:24-0400 Diastolic blood pressure 87 mm[Hg] Marty Dozier DO Work Phone: [facility] 05-14-2022 14:24-0400 Heart rate 72 /min Marty Dozier DO Work Phone: [facility] 05-14-2022 14:24-0400 Systolic blood pressure 158 mm[Hg] Marty Dozier DO Work Phone: [facility] 05-14-2022 14:22-0400 Body height 152.4 cm Marty Dozier DO Work Phone: [facility] 05-14-2022 14:22-0400 Body weight 76.39 kg Marty Dozier DO Work Phone: [facility] 05-14-2022 14:22-0400 SaO2% (BldA) [Mass fraction] 99 % Marty Dozier DO Work Phone: [facility] Encounters Encounter Date Encounter Type Care Provider Facility Start: 02-06-2024 End: 02-06-2024 ambulatory Lyn Quiñones MD [facility]: [facility] Start: 01-16-2024 End: 01-16-2024 ambulatory Lyn Quiñones MD [facility]: [facility] Start: 12-06-2023 End: 12-06-2023 Patient encounter procedure Armando Morales DO Work Phone: [facility] Comment on above: Encounter for gyneco logical examination without abnormal finding; Encounter for Papanicolaou smear of vagina; Breast cancer screening by mammogram Start: 12-06-2023 End: 12-06-2023 Patient encounter status Armando Morales DO Work Phone: [facility] Start: 12-06-2023 End: 12-06-2023 ambulatory ARMANDO MORALES Not Available Start: 09-26-2023 End: 09-26-2023 ambulatory Lyn Quiñones MD [facility] Start: 09-12-2023 End: 09-12-2023 ambulatory Lyn Quiñones MD Facility:[facility] Start: 08-18-2023 End: 08-18-2023 ambulatory Galina Rogers Facility:[facility] Start: 08-08-2023 End: 08-08-2023 ambulatory COLETTE MATOS Not Available Start: 06-06-2023 End: 06-06-2023 ambulatory Lyn Quiñones MD [facility] Start: 05-23-2023 End: 05-23-2023 ambulatory Lyn Quiñones MD Facility:[facility] Start: 09-21-2022 End: 09-21-2022 ambulatory GALINA ROGERS Facility:[facility] Start: 09-21-2022 End: 09-21-2022 Patient encounter procedure aCrolyn Vanegas MD Work Phone: Neurosurgery Comment on above: Obesity, Class I, BM I 30-34.9 (Primary Dx); Spinal stenosis, lumbar region with neurogenic claudication Start: 08-19-2022 Chart abstracting None (Historical) Neurology Start: 07-22-2022 ambulatory PORSHA MARIO . Facility: Start: 07-16-2022 End: 07-17-[address] GALINA ROGERS . Facility:[facility] Start: 06-22-2022 End: 06-22-2022 ambulatory NARENDRANATH LAKSHMIPATHY . Facility:[facility] Start: 06-15-2022 End: 06-16-2022 ambulatory NARENDRANATH LAKSHMIPATHY . Facility:[facility] Start: 06-10-[address] GALINA ROGERS . Facili ty:[facility] Start: 06-01-2022 End: 06-01-2022 ambulatory NARENDRANATH LAKSHMIPATHY . Facility:[facility] Start: 05-14-2022 End: 05-14-2022 ambulatory MARTY DOZIER Facility:[facility] Start: 05-14-2022 End: 05-14-2022 Patient encounter [...] 01-01-2022 ambulatory NOEMI SEQUEIRA . Facility:[facility] Start: 11-04-[address] GALINA ROGERS . Facili ty:[facility] [...] 09-12-2017 End: 09-13-2017 Patient encounter DEFAULT PHYSICIAN Facility:[facility] Plan of Treatment Date Care Activity Detail Author Start: 12-10-2025 End: 12-10-2025 Patient encounter procedure 12/10/2025 11:30 AM EDT Office Visit [facility] [address] [place] [id number] Armando Morales, DO [address] [place] [address] [facility] Start: 10-23-2023 Influenza vaccination Influenza Vacc ine (#1) [facility] Start: 10-22-2022 Influenza vaccination INFLUENZA (#1) [facility] Start: 04-11-2022 COVID-19 VACCINE (6 - Moderna series) COVID-19 VACCINE (6 - Moderna series) [facility] Start: 02-21-2022 ADVANCE DIRECTIVE DISCUSSION ADVANCE DIRECTIVE DISCUSSION [facility] Start: 02-21-2022 DEPRESSION ASSESSMENT DEPRESSION ASS ESSMENT [facility] Start: 11-12-2017 Pneumococcal Vaccine : 65+ Years (2 of 2 - PPSV23 or PCV20) Pneumococcal Vaccine: 65+ Years (2 of 2 - PPSV23 or PCV20) [facility] Start: 11-12-2017 PNEUMOCOCCAL: 65+ (2 - PPSV23 if available, else PCV20) PNEUMOCOCCAL: 65+ (2 - PPSV23 if available, else PCV20) [facility] Start: 11-12-2017 PNEUMOCOCCAL: 65+ (2 - PPSV23 or PCV20) PNEUMOCOCCAL: 65+ (2 - PPSV23 or PCV20) [facility] Start: 07-22-2017 SHINGRIX VACCINE (2 of 3) SHINGRIX VACCINE (2 of 3) [facility] Start: 04-30-2004 BONE DENSITY BONE DENSITY [facility] Start: 04-30-1984 DIABETES SCREEN DIABETES SCREEN [facility] Start: 04-30-1958 Urine microalbumin profile DTAP,TDAP,TD (1 - Tdap) [facility] IGP,rfxAptima HPV all,16/18,45 IGP,rfxAptima HPV all,16/18,45 Pathology and Cytology Routine Encounter for Papanicolaou smear of vagina Ordered: 12/06/2023 [facility] Work Phone: Comment on above: Ordered: 12/06/2023 Immunizations Immunization Date Immunization Notes Care Provider Armando schwartz 12-09-2021 Moderna Bivalent Gama ster Vaccination Armando Morales DO Work Phone: [facility] 12-02-2021 Influenza, injectabl e, Madin Carmina Canine Kidney, preservative free, quadrivalent Marty Dozier DO Work Phone: [facility] 12-02-2021 influenza virus vacc ine, unspecified formulation Armando Morales DO Work Phone: [facility] 11-28-2020 influenza virus vacc ine, unspecified formulation Marty Dozier DO Work Phone: [facility] 11-29-2019 Seasonal trivalent influenza vaccine, adjuvanted, preservative free Marty Dozier DO Work Phone: [facility] 05-27-2017 zoster vaccine, live Marty Dozier DO Work Phone: [facility] 11-12-2016 pneumococcal conjuga te vaccine, 13 valent Marty Dozier DO Work Phone: [facility] Payers Date Payer Category Payer Private Health Insurance [id number] 2004 Medicare [id number] 2004 Unknown 1959 Medicare [id number] 1959 Self-pay 1959 Unknown [id number] 1939 Unknown [id number] 2.16.84 0.1.144586.3.579.2.593 1939 Unknown [id number] 2.16.84 0.1.716320.3.579.2.593 1939 Unknown [id number] 2.16.84 0.1.274599.3.579.2.593 1939 Unknown [id number] 2.16.84 0.1.573159.3.579.2.593 1939 Unknown [id number] 2.16.84 0.1.514783.3.579.2.593 1939 Unknown [id number] 2.16.84 0.1.764179.3.579.2.593 1939 Unknown [id number] 2.16.84 0.1.982948.3.579.2.593 1939 Unknown [id number] 2.16.84 0.1.806210.3.579.2.593 1939 Unknown [id number] 2.16.84 0.1.375197.3.579.2.593 1939 Unknown [id number] 2.16.84 0.1.678028.3.579.2.593 1939 Unknown [id number] 2.16.84 0.1.609136.3.579.2.593 1939 Unknown [id number] 2.16.84 0.1.134150.3.579.2.593 1939 Unknown [id number] 2.16.84 0.1.213250.3.579.2.593 1939 Unknown [id number] 2.16.84 0.1.410178.3.579.2.593 1939 Unknown [id number] 2.16.84 0.1.802656.3.579.2.593 1939 Unknown [id number] 2.16.84 0.1.037537.3.579.2.593 1939 Unknown [id number] 2.16.84 0.1.917916.3.579.2.593 1939 Unknown [id number] 2.16.84 0.1.452393.3.579.2.593 1939 Unknown [id number] 2.16.84 0.1.278305.3.579.2.593 1939 Unknown [id number] 2.16.84 0.1.205000.3.579.2.593 1939 Unknown [id number] 2.16.84 0.1.166500.3.579.2.593 1939 Unknown [id number] 2.16.84 0.1.858669.3.579.2.593 1939 Unknown [id number] 2.16.84 0.1.988841.3.579.2.593 1939 Unknown [id number] 2.16.84 0.1.504869.3.579.2.593 1939 Unknown [id number] 2.16.84 0.1.735415.3.579.2.593 1939 Unknown [id number] 2.16.84 0.1.792942.3.579.2.1259 1939 Unknown [id number] 2.16.84 0.1.697821.3.579.2.1259 1939 Unknown [id number] 2.16.84 0.1.506645.3.579.2.1259 1939 Unknown [id number] 2.16. 840.1.998784.3.579.2.196 1939 Unknown [id number] 2.16. 840.1.766260.3.579.2.196 1939 Unknown [id number] 2.16. 840.1.536674.3.579.2.196 1939 Unknown [id number] 2.16. 840.1.161451.3.579.2.196 1939 Unknown [id number] 2.16. 840.1.397366.3.579.2.196 1939 Unknown [id number] 2.16. 840.1.617467.3.579.2.196 Social History Date Type Detail Facility Start: 05-14-2022 End: 08-02-2022 Tobacco smoking status NHIS Never smoked tobacco [facility] Start: 05-14-2022 End: 08-02-2022 Tobacco use and exposure Smokeless tobacco non-user [facility] Start: 05-14-2022 End: 12-06-2023 Alcohol intake Lifetime non-drinker (finding) [facility] Start: 1940 Sex Assigned At Not on file C [facility] Start: 09-21-2022 End: 12-06-2023 History of Social function [facility] Start: 09-21-2022 End: 12-06-2023 Tobacco use panel [facility] Adult Depression Scr eening Assessment 2 [facility] How often to you hav e [...] Obstetrics and Gynecology Alexa Delgado 1940 12/06/23 [id number] Yearly Wellness Exam Chief Complaint Patient presents with Gynecologic Exam Medicare yearly. LMP: SUNIL BSO 1972 HRT: None Last pap 12-02-21 neg. Last mammogram 12-05-23 [facility] ordered by PCP. Denies breast or [...] Sex Type Anes PTL Lv 4 Para 1972 7 lb 3 oz Vag-Spont JUDE 3 [...] Oil) 1000 MG capsule as directed Orally Mhsoslqznjx-Gvyijvvwnbs-BMZ (Triple Flex) 500-400-125 MG tablet 1 tablet with meals Orally twice daily for 30 days HYDROcodone-acetaminophen (Lexington) 5-325 MG tablet 1 tablet as needed [...] Right 1990 BUNIONECTOMY Right 02/2005 CATARACT EXTRACTION 2011 w/ Lens Implantation CHOLECYSTECTOMY 09/15/2012 COLONOSCOPY 2019 Benign D&C FIRST TRIMESTER / TX INCOMPLETE / MISSED / SEPTIC / INDUCED x3 EXCISION BENIGN SKIN LESION TRUNK / ARM / LEG 2009 excision of lesion on leg ( benign) [place] CAPSULOTOMY POSTERIOR CAPSULAR RELEASE KNEE 05/15/2013 Yttrium aluminum garnet (YAG) capsulotomies [place] KNEE SCOPE,CLEAN/DRAIN 10/1998 Dr. De Leon [place] LAMNOTMY INCL W/DCMPRSN NRV ROOT 1 INTRSPC CERVC 12/20/2006 L4-5 Hemilaminectomy / Discectomy - Dr. Arshad SALPINGOOPHORECTOMY Left 1981 SKIN SURGERY 12/13/2008 excision neoplasm LT leg TONSILLECTOMY 1958 TOTAL ABDOMINAL HYSTERECTOMY 1973 SUNIL RSO TOTAL KNEE ARTHROPLASTY Right 09/22/2017 Dr. de leon Past Medical History: Diagnosis Date Angina pectoris (CMS/HCC) Angina pectoris (CMS/HCC) 11/2019 hx of hospitalization Melchor's palsy 1960 Breast nodule Cataract 2012 COVID-19 10/2021 hx of hospitalization History of medical problems 1982 MMK LSO HTN (hypertension) (CMS/HCC) Hx of completed stroke hx of stroke at [id number]/ TIA 1984 Kidney disease remission Kidney disease hx of hospitalization Lumbar disc herniation 2007 L4 L5 Miscarriage x3 Pelvic fracture (CMS/HCC) 2018 hx of hospitalization x4 Status post laser cataract surgery of left eye 2014 Stroke ([facility] 1973 at childbirth TIA (transient ischemic attack) 1984 ROS Const: Denies appetite change, fever, chills. [...] costovertebral angle tenderness, no obvious scoliosis/kyphosis. 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 documented in this encounter [facility] 09-21-2022 Note HNO ID: [id number] Author: Carolyn Vanegas MD Service: ? Author [...] Health Percentile 1 (more content not included)... [facility] 09-21-2022 Instructions Carolyn Vanegas MD [...] at this time. documented in this encounter [facility] 09-21-2022 History of Present illness [...] 4 - Moderate documented in this encounter [facility] 08-26-2022 Note HNO ID: [id number] Author: Kassandra Alves PA-C Service: ? Author Type: Physician Photo Intern Type: Progress Notes Filed: 08/26/2022 11:52 AM Note Text: Per Triage: Alexa Delgado is a 82 year old female that requests evaluation of spine. Per review, they have symptoms of lower back pain. Numbness/tingling right leg. Difficulty walking. Weakness Request: 1st available Referring provider: Galina Rogers MD Patient out of state: no 2nd opinion: no Prior spine surgery: yes 2006 [facility] Address: [address] [place] [address] CMT: PT Injections Tylenol Hydrocodone Studies (Reports [...] they can be reviewed during the appt Kassanrda Alves PA-C [facility] 08-26-2022 History of Present illness Narrative Per Triage: Alexa Delgado is a 82 year old female that requests evaluation of spine. Per review, they have symptoms of lower back pain. Numbness/tingling right leg. Difficulty walking. Weakness Request: 1st available Referring provider: Galina Rogers MD Patient out of state: no 2nd opinion: no Prior spine surgery: yes 2006 [facility] Address: [address] [place] [address] CMT: PT Injections Tylenol Hydrocodone Studies (Reports [...] Health Provider or Pain Management Provider at [facility]? No If answer is YES please [...] facility where the MRI/CT/myelogram was completed: [facility] Address: [address] [place] [address] MRI/CT/myelogram viewable in Epic: No If not, please provide [phone] to fax in imaging reports for review. [...] physical therapy was completed PT Injection [facility] Address: [address] [place] [address] Have you tried any other kinds of [...] where the surgery was completed: 2006 [facility] Address: [address] [place] [address] Additional Comments documented in this encounter [facility] 08-19-2022 Note HNO ID: [id number] Author: Micheal Bowman Service: ? Author Type: ? Type: Progress Notes Filed: 08/26/2022 11:52 AM Note Text: Patient name: Alexa Delgado Are you being referred by a [facility] Health Provider or Pain Management Provider at [facility]? No If answer is YES please [...] facility where the MRI/CT/myelogram was completed: [facility] Address: [address] [place] [address] MRI/CT/myelogram viewable in Epic: No If not, please provide [phone] to fax in imaging reports for review. [...] physical therapy was completed PT Injection [facility] Address: [address] [place] [address] Have you tried any other kinds of [...] of where the surgery was completed: 2006 [facility] Address: [address] [id number] Additional Comments [facility] 07-16-2022 Note PROCEDURE: XR HIP [...] authenticated by: HERMES MENDOZA Date: 2022-07-16 11:28 [facility] 05-14-2022 Note HNO ID: [id number] Author: Marty Dozier, DO Service: ? Author Type: Physician Type: Progress Notes Filed: 05/15/2022 10:02 PM Note Text: [facility] [place] [facility] - Medical Spine Initial [...] Ratio: R>L low back Current Treatment: Medications Lexington 5-325 mg BID - helps Diclofenac 75 [...] but still has pain -01/28/22 Noemi Sequeira SAS ARCHITECT: BL Lumbar erector spinae TPI (0.125% Marcaine, [...] ongoing as of 04/17/21 -03/08/21 Noemi Sequeira SAS ARCHITECT: Left rhomboid TPI (0.125% Marcaine, 40 mg Kenalog) -02/03/21 LESI - moderate relief for 4 days Prior spine surgery: -2006 L4-5 Discectomy Previously treated by: -[facility], previously Dr. Niko [...] today. She has an evaluation at the [facility] tomorrow at the Spine Center. RECOMMENDATIONS: We will see the patient back in the office after she undergoes evaluation there to discuss her treatment plan thereafter. We will see the patient back in the office in approximately four weeks' time or sooner if needed. PMH: Lumbar scoliosis Depression on Negrita (more content not included)... [facility] 05-14-2022 History of Present illness Narrative Images from the original note were not included. [facility] [place] [facility] - Medical [...] Ratio: R>L low back Current Treatment: Medications Lexington 5-325 mg BID - helps Diclofenac 75 [...] but still has pain -01/28/22 Noemi Sequeira SAS ARCHITECT: BL Lumbar erector spinae TPI (0.125% Marcaine, [...] ongoing as of 04/17/21 -03/08/21 Noemi Sequeira SAS ARCHITECT: Left rhomboid TPI (0.125% Marcaine, 40 mg Kenalog) -02/03/21 LESI - moderate relief for 4 days Prior spine surgery: -2006 L4-5 Discectomy Previously treated by: -[facility], previously Dr. Niko [...] today. She has an evaluation at the [facility] tomorrow at the Spine Center. [...] reviewed 04/04/22 CT abd/pelvis with IV contrast, [facility], report: Abdominal wall: Old healed left pelvis fractures. Degenerative changes and scoliosis of the lumbar spine. IMPRESSION: No acute abdominal pathology. No acute inflammatory process. No obstructing urinary tract stone. No evidence for bowel obstruction. 11/15/21 XR abd, [facility], report: No acute osseous abnormality. There is moderate dextrocurvature of the lumbar spine. 05/08/2021 XR right hip/pelvis, [facility], report: Rotatory dextro scoliosis of the [...] TIME: 3:15 PM documented in this encounter [facility] 05-13-2022 Note CONSULTATION CONSULTATION DATE: [...] mg at h.s., diclofenac 75 mg b.i.d., Lexington 5 mg b.i.d. EXAM: Notable for the [...] today. She has an evaluation at the [facility] tomorrow at the Spine Center. RECOMMENDATIONS: We will see the patient back in the office after she undergoes evaluation there to discuss her treatment plan thereafter. We will see the patient back in the office in approximately four weeks' time or sooner if needed. [facility] 04-06-2022 Note CONSULTATION CONSULTATION DATE: 04/06/2022 [...] to kidney dysfunction also. The patient takes Lexington, however, is very controlled and limits it to the point of detriment. Education was done. The patient was instructed to take the Lexington to a b.i.d. to t.i.d. basis. The [...] b.i.d. basis. The patient may increase the Lexington to 5/325 t.i.d. We will schedule the [...] the procedure. CC: Galina Rogers M.D. [facility] 03-11-2022 Note CONSULTATION CONSULTATION DATE: 03/11/2022 [...] gave improvement for 24 hours. Medications include Lexington 5/325 b.i.d., diclofenac 75 mg b.i.d., citalopram [...] back pain. PLAN: We will refill her Lexington 5/325 b.i.d. We will prescribe her Buderer cream with gabapentin, ketorolac and prilocaine/lidocaine to be placed over her right knee. We will trial Requip 0.25 mg q.h.s. We will see the patient in the clinic in three months' time unless otherwise indicated. Patient agrees with the plan. [facility] 01-28-2022 Note CONSULTATION CONSULTATION DATE: 01/28/2022 [...] daily which decreases her pain. Medications include Lexington 5/325 b.i.d., Flexeril 5 mg b.i.d., diclofenac [...] does consent to. We will refill the Lexington 5/325 b.i.d. We will pre-authorize for a right genicular nerve block under fluoroscopy. Patient will follow up in the clinic thereafter. [facility] 01-28-2022 Note CONSULTATION PROCEDURE DATE: 01/28/2022 [...] be followed up in the office. [facility] 12-31-2021 Note CONSULTATION CONSULTATION DATE: 12/31/2021 [...] Current medications include diclofenac 75 mg b.i.d., Lexington 5/325 b.i.d., citalopram, Flexeril and multivitamin regimen. The patient does state that she breaks her Lexington in half and the most she takes [...] and would like to move forward. [facility] 09-30-2021 Note CONSULTATION CONSULTATION DATE: 09/30/2021 This is a very [id number] female accompanied by her returning to the [...] Current medications include diclofenac 50 mg b.i.d., Lexington 5/325 b. i.d. and Tylenol. She does [...] at 25 mg q.h.s. Refill for her Lexington 5/325 b.i.d. will be sent as well. The patient is to continue with her vitamin regimen which she is currently compliant with, as well as heat application and pool exercises. The patient will be followed up in the office in three months' time unless otherwise indicated. The patient agrees with the plan of care. [facility] Evaluation note Diagnosis Chronic bilateral low back pain with right-sided sciatica- Primary Back pain, lumbosacral Lumbago Chronic sacroiliac joint pain Disorders of sacrum Lumbar spondylosis Lumbosacral spondylosis without myelopathy Scoliosis of lumbar spine, unspecified scoliosis type [facility] Spinal stenosis, lumbar region with neurogenic claudication- Primary Spondylolisthesis, lumbar region Other idiopathic scoliosis, lumbar region [facility] Obesity, Class I, BMI 30-34.9- Primary Obesity, unspecified Spinal stenosis, lumbar region with neurogenic claudication [facility] Diagnosis Encounter for gynecological examination without [...] Procedures Referred By Contac t Referred To [facility] [place] Diagnoses Spinal stenosis, lumbar region with neurogenic claudication Procedures CONSULT TO [facility] ([facility] PAIN) OFFICE/OUTPATIENT NEW HIGH MDM 60-74 MINUTES Carolyn Vanegas MD [address] [place] [address] Referral ID Status Reason Start Date Expiration Date Visits Requested Visits Authorized [id number] Pending Review PCP Requested Referral 09/21/2022 09/21/2023 1 1 Additional Source Comments INFORMATION SOURCE (unrecogn ized section and content) DATE CREATED AUTHOR 09/13/2017 [facility] DATE CREATED AUTHOR AUTHOR'S ORGANIZ ATION 12/13/2020 [facility] DATE CREATED AUTHOR AUTHOR'S ORGANIZ ATION 07/30/2022 [facility] DATE CREATED AUTHOR AUTHOR'S ORGANIZ ATION 09/22/2022 [facility] DATE CREATED AUTHOR AUTHOR'S ORGANIZ ATION 10/26/2023 [facility] DATE CREATED AUTHOR AUTHOR'S ORGANIZ ATION 12/08/2023 [facility] dical [facility] DATE CREATED AUTHOR AUTHOR'S ORGANIZ ATION 02/15/2024 [facility] Source Comments (unrecognize d section and content) In the event this informatio n is protected by the Federal Confidentiality of Alcohol and Drug Abuse Patient Records regulations: The Federal rules restrict any use of the information to criminally investigate or prosecute any alcohol or drug abuse patient.[facility] the event this information is protected by the Federal Confidentiality of Alcohol and Drug Abuse Patient Records regulations: The Federal rules restrict any use of the information to criminally investigate or prosecute any alcohol or drug abuse patient.[facility] the event this information is protected by the Federal Confidentiality of Alcohol and Drug Abuse Patient Records regulations: The Federal rules restrict any use of the information to criminally investigate or prosecute any alcohol or drug abuse patient.[facility] Reason for Visit (unrecogniz ed section and content) Reason Comments New Patient Evaluation Low Back Pain Reason Comments New Patient Reason Comments Gynecologic Exam Medicare yearly.LMP: SUNIL BSO 1972HRT: NoneLast pap 12-02-21 neg.Last mammogram 12-05-23 [facility] ordered by PCP.Denies breast or urinary concerns. bowel concern Some rectal bleeding with bowel movements. Denies difficulty having a bowel movement. Care Teams (unrecognized sec tion and content) Capacitor Assembler Relationship Specialty Start Date End Date Galina Rogers MD [address] [place] [address] PCP - General Family Medicine 05/14/22 Colette De Leon Jr., DO [address] [place] [address] Referring Orthopedics 05/03/22 Porsha Mario [address] [id number] Pain Management 05/14/22 Colette De Leon Jr., DO [address] [place] [address] Orthopedics 05/14/22 Capacitor Assembler Relationship Specialty Start Date End Date Galina Rogers MD [address] [place] [address] PCP - General Family Medicine 05/14/22 Colette De Leon Jr., DO [address] [facility] [address] [place] [address] Referring Orthopedics 05/03/22 Tereshmigildardoy, Claudioendranath [address] [place] [address] Pain Management 05/14/22 Colette De Leon Jr., DO [address] [place] [address] Orthopedics 05/14/22 Galina Rogers MD [address] [place] [address] Referring Family Medicine 08/11/22 Capacitor Assembler Relationship Specialty Start Date End Date Galina Rogers MD [address] [place] [address] PCP - General Family Medicine 05/14/22 Colette De Leon Jr., DO [address] [facility] [address] [place] [address] Referring Orthopedics 05/03/22 Shermigildardoy, Narendranath [address] [place] [address] [place] [address], [place] [id number] Pain Management 05/14/22 Colette De Leon Jr., DO [address] [place] [address] Orthopedics 05/14/22 Galina Rogers MD [address] [place] [address] Referring Family Medicine 08/11/22 Capacitor Assembler Relationship Specialty Start Date End Date Galina Rogers MD [address] [place] [phone] PCP - General Family Medicine 08/02/22 FOR [...] BE BASED ON THE PRIMARY CLINICAL RECORDS. [employer] provides no warranty or guarantee of the accuracy or completeness of information in this document.
[2024-03-22 15:08] LABS: Hematocrit 35.8 % (36.0-48.0); Hemoglobin 11.8 g/dL (12.0-16.0); Mean Corpuscular Hemoglobin 31.6 pg (26.7-34.0); Mean Corpuscular Volume 95.7 fL (81.0-99.0); Mean Platelet Volume 9.2 fL (9.5-13.5); Platelet Count 242 10^3/uL (150-450); Red Blood Count 3.74 10^6/uL (4.20-5.40); Red Cell Distribution Width 13.1 % (11.0-15.0); White Blood Count 4.3 10^3/uL (4.0-11.0)
[2024-03-22 15:48] LABS: Alanine Aminotransferase 24 U/L (14-59); Albumin Globulin Ratio 1.1; Albumin Level 3.3 g/dL (3.4-5.0); Alkaline Phosphatase 48 U/L (46-116); Anion Gap 11.2; Aspartate Amino Transferase 26 U/L (15-37); BUN Creatinine Ratio 18.3; Bilirubin Total 0.4 mg/dL (0.2-1.0); Calcium 7.8 mg/dL (8.5-10.1); Carbon Dioxide 29.6 mmol/L (21.0-32.0); Chloride 100 mmol/L (98-107); Estimated GFR (African America 52 (>=60 mL/min/1.73m^2); Estimated GFR (Non-African Ame 43 (>=60 mL/min/1.73m^2); Globulin 3.1 g/dL; Glucose 96 mg/dL (74-106); Sodium 138 mmol/L (136-145); Total Protein 6.4 g/dL (6.4-8.2)
[2024-03-22 15:53] LABS: Potassium 2.8 mmol/L (3.5-5.1)
[2024-03-22 16:33] LABS: Lymphocytes Absolute Manual 0.68 10^3/uL (1.20-3.80); Monocytes Absolute Manual 0.34 10^3/uL (0.30-0.80); Segmented Neut Absolute Manual 3.18 10^3/uL (1.4-6.5)
[2024-03-22 16:34] LABS: Eosinophils Absolute Manual 0.08 10^3/uL (0.00-0.70)
== END 2024-03-22 14:23 | disposition home or self-care (01) ==
LOC: LAB 14:24
PROVIDERS: PCP Family Medicine; Visit Provider Nurse Practitioner Family
DX: K52.9 Noninfective gastroenteritis and colitis, unspecified (principal)
CPT/HCPCS: 36415; 80053; 85007; 85027

== ENCOUNTER 2024-03-28 12:52 | Outpatient (OUT) | payer MEDICARE, SELFPAY ==
[2024-03-28 13:35] LABS: Alanine Aminotransferase 24 U/L (14-59); Albumin Globulin Ratio 1.1; Albumin Level 3.4 g/dL (3.4-5.0); Alkaline Phosphatase 53 U/L (46-116); Anion Gap 10.9; Aspartate Amino Transferase 21 U/L (15-37); BUN Creatinine Ratio 15.3; Bilirubin Total 0.3 mg/dL (0.2-1.0); Calcium 9.3 mg/dL (8.5-10.1); Carbon Dioxide 31.7 mmol/L (21.0-32.0); Chloride 98 mmol/L (98-107); Estimated GFR (African America 57 (>=60 mL/min/1.73m^2); Estimated GFR (Non-African Ame 47 (>=60 mL/min/1.73m^2); Globulin 3.2 g/dL; Glucose 105 mg/dL (74-106); Potassium 4.6 mmol/L (3.5-5.1); Sodium 136 mmol/L (136-145); Total Protein 6.6 g/dL (6.4-8.2)
== END 2024-03-28 12:53 | disposition home or self-care (01) ==
LOC: LAB 12:56
PROVIDERS: PCP Family Medicine; Visit Provider Nurse Practitioner Family
DX: R89.9 Unspecified abnormal finding in specimens from other organs, systems and tissues (principal)
CPT/HCPCS: 36415; 80053

== ENCOUNTER 2024-04-12 08:55 | Outpatient (RCR) | payer MEDICARE, SELFPAY | END 2024-05-18 06:55 | disposition home or self-care (01) | LOC: PT 08:55 | PROVIDERS: PCP Family Medicine; Visit Provider Family Medicine | DX: R53.1 Weakness (principal); R26.2 Difficulty in walking, not elsewhere classified | CPT/HCPCS: 97110; 97112; 97163; 97530 ==

== ENCOUNTER 2024-04-25 10:21 | Outpatient (OUT) | payer MEDICARE, SELFPAY ==
--- NOTE | 2024-04-25 11:09 | P.CN_ITS ---
Consult Note: HPI Data of Consult Patient: known to practice within the last 3 years Requesting Physician: Vivian Meza NP Primary Care Provider: Luis Rogers MD Consult Narrative Reason for consult: f/u Narrative: Alexa Delgado a pleasant 82 year old female presents for evaluation and management of chronic pain. Patient rating pain 34/10 today, increasing to 8/10 in back and left leg with standing walking and activity. pain improved with lying down, heat, and medications. Patient has found significant improvement in pain and functional ability with past procedures and current medication regimen. Denies side effects from current medication regimen. following with PCP for dementia, noticing increased memory loss. recently underwent left L4/5 L5/S1 TFESI and bilateral SIJ injection with >50% improvement for 3 months. cc:: CC: Vivian Meza NP Review of Systems ROS Status of ROS 10 or more systems reviewed and unremark able except as noted in history and below Musculoskeletal Reports: back pain, extremity pain and joint pain PFSH PFSH Medical History Pelvic fracture ?S32.9XXA - Fracture of unspecified parts of lumbosacral spine and pelvis, initial encounter for closed fracture (ICD-10) TIA (transient ischemic attack) ?G45.9 - Transient cerebral ischemic attack, unspecified (ICD-10) Closed fracture of coccyx ?S32.2XXA - Fracture of coccyx, initial encounter for closed fracture (ICD- 10) Osteoarthritis ?M19.90 - Unspecified osteoarthritis, unspecified site (ICD-10) H/O pyelonephritis ?Z87.448 - Personal history of other diseases of urinary system (ICD-10) Syncope ?R55 - Syncope and collapse (ICD-10) Generalized weakness ?R53.1 - Weakness (ICD-10) Dizziness ?R42 - Dizziness and giddiness (ICD-10) Surgical History Pain management ?R52 - Pain, unspecified (ICD-10) H/O bladder repair surgery ?Z98.890 - Other specified postprocedural states (ICD-10) H/O breast surgery ?Z98.890 - Other specified postprocedural states (ICD-10) H/O knee surgery ?Z98.890 - Other specified postprocedural states (ICD-10) H/O foot surgery ?Z98.890 - Other specified postprocedural states (ICD-10) History of right knee joint replacement ?Z96.651 - Presence of right artificial knee joint (ICD-10) History of YAG laser capsulotomy of lens ?Z98.49 - Cataract extraction status, unspecified eye (ICD-10) Hx laparoscopic cholecystectomy ?Z90.49 - Acquired absence of other specified parts of digestive tract (ICD- 10) H/O: hysterectomy ?Z90.710 - Acquired absence of both cervix and uterus (ICD-10) History of arthroscopic knee surgery ?Z98.890 - Other specified postprocedural states (ICD-10) H/O discectomy ?Z98.890 - Other specified postprocedural states (ICD-10) H/O dilation and curettage ?Z98.890 - Other specified postprocedural states (ICD-10) History of appendectomy ?Z90.49 - Acquired absence of other specified parts of digestive tract (ICD- 10) Hx of tonsillectomy ?Z90.89 - Acquired absence of other organs (ICD-10) Family History Other Family history of CHF (congestive heart failure) Social History Within the past year, how often did you have a drink containing alcohol: never Score interpretation: A score less than 3 is consistent with normal alcohol consumption. Smoking status: Never smoker Non-prescribed substance use: denies use Previous occupational history: Retired, , lives at home Highest level of school completed/degree received: high school graduate Are you now , , , , never or living with a partner: In a typical week, how many times do you talk on the telephone with family, friends, or neighbors: once per week How often do you get together with friends or relatives: once per week How often do you attend zoroastrianism or jain services: 1-3 times per year Little interest or pleasure in doing things: not at all Feeling down, depressed, or hopeless: not at all Feel stressed/tense/nervous/anxious/difficulty sleeping: not at all Gender Identity: female Meds Home Medications and Allergies Home Medications ?Medication ?Instructions ?Recorded ?Confirmed ?Type B complex with vitamin 1 cap PO DAILY 07/26/22 02/06/24 History I-sdasayrdy-owal capsule aspirin 81 mg tablet,delayed 81 mg PO DAILY 07/26/22 02/06/24 History release calcium 600 mg (as carbonate)-vit 1 tab PO DAILY 07/26/22 11/04/23 History D3 10 mcg (400 unit)-minerals tablet capsaicin 0.025 % topical patch 1 patch topical DAILY pain 07/26/22 02/06/24 History (Salonpas-Hot) citalopram 10 mg tablet 10 mg PO DAILY 07/26/22 02/06/24 History fexofenadine 180 mg tablet 180 mg PO DAILY 07/26/22 02/06/24 History (Benita Allergy) flaxseed oil 1,000 mg capsule 1,000 mg PO DAILY 07/26/22 02/06/24 History glucosamine 750 hx-wlbunl-kwo 2-C 1 tab PO DAILY 07/26/22 02/06/24 History 30 mg-D3 1,000 unit-maida 1 mg tablet (Wozriyeoiim-Jzrptasbatp-XJA + vitD) isosorbide mononitrate 30 mg 30 mg PO DAILY 07/26/22 02/06/24 History tablet,extended release 24 hr liothyronine 25 mcg tablet 25 mcg PO DAILY 07/26/22 02/06/24 History (Cytomel) melatonin 3 mg capsule 3 mg PO DAILY 07/26/22 02/06/24 History metoprolol succinate 50 mg 50 mg PO BID 07/26/22 02/06/24 History tablet,extended release 24 hr multivitamin 1 tab PO DAILY 07/26/22 02/06/24 History nitroglycerin 0.4 mg sublingual 0.4 mg sublingual Q5M PRN chest 07/26/22 02/06/24 History tablet pain cyclobenzaprine 10 mg tablet 10 mg PO BEDTIME 04/20/23 02/06/24 History ferrous sulfate 325 mg (65 mg 325 mg PO BID 09/02/23 01/16/24 History iron) tablet cyclobenzaprine 5 mg tablet 5 mg PO QAM 10/13/23 02/06/24 History diclofenac sodium 75 mg 75 mg PO BID 10/13/23 02/06/24 History tablet,delayed release levothyroxine 75 mcg tablet 75 mcg PO QAM 10/13/23 02/06/24 History pantoprazole 40 mg tablet,delayed 40 mg PO DAILY #30 tabs 10/13/23 02/06/24 Rx release (Protonix) calcium 600 mg (as carbonate)-vit 1 tab PO BID 11/04/23 02/06/24 History D3 20 mcg (800 unit) chewable tablet (Caltrate plus D) gabapentin 100 mg capsule 100 mg PO BID #60 caps 01/05/24 02/06/24 Rx hydrocodone 5 mg-acetaminophen 325 1 tab PO TID PRN pain #90 tabs 01/05/24 02/06/24 Rx mg tablet hydrocodone 5 mg-acetaminophen 325 1 tab PO TID PRN pain #90 tabs 02/23/24 Rx mg tablet hydrocodone 5 mg-acetaminophen 325 1 tab PO Q8H PRN pain #90 tabs 04/10/24 Rx mg tablet Allergies Allergy/AdvReac Type Severity Reaction Status Date / Time Penicillins Allergy Severe Hives Verified 02/06/24 10:23 codeine AdvReac Intermediate Dizziness Verified 02/06/24 10:23 fluconazole (From Diflucan) AdvReac Intermediate Hives Verified 02/06/24 10:23 quinine (From Quinamm) AdvReac Mild Headache Verified 02/06/24 10:23 pregabalin (From Lyrica) AdvReac Dizziness Verified 02/06/24 10:23 propoxyphene (From Darvon) AdvReac Headache Verified 02/06/24 10:23 decongest multi-action AdvReac Mild Headache Uncoded 02/06/24 10:23 Exam Constitutional Documenting provider has reviewed patient's vital signs: yes Common normals: no apparent distress, oriented x3, healthy appearing, alert and well nourished General appearance: cooperative [facility] Common normals: normocephalic, hearing grossly normal bilaterally and moist oral mucous membranes Head and scalp: normocephalic Eye Common normals: PERRL Pupil: PERRL Neck & C-Spine Common normals: full ROM General: normal visual inspection Chest Common normals: inspection of chest normal Respiratory Common normals: normal respiratory effort, no retractions and no use of accessory muscles Back & Pelvis Lumbar spine/lower back: ROM limited, pain with ROM, paraspinal muscle tenderness, paraspinal muscle spasm and straight leg raise positive left Sacroiliac joints: SI joint(s) abnormal Other: left SIJ mildly positive marge(patricks), gaenslens, thigh thrust, compression test strength 4/5 in BLE decreased sensation to left L4,5,S1 Extremity Common normals: normal to inspection Right lower extremity: hip joint Left lower extremity: knee joint Left knee: palpation (moderate to severe pain ), ROM (limited, crepitus noted. pain with medial/lateral stress testing) and other Other: no pain with internal and external rotation of right hip Neuro Common normals: oriented x3, CN's II-XII intact bilaterally, moves all extremities, no focal motor deficits, no sensory deficits noted and deep tendon reflexes 2+ bilaterally Sensorium/orientation: alert Gait (neuro): antalgic and assistive device used walker Motor exam: no movement abnormalities noted and strength abnormal Psych Common normals: mental status grossly normal, thought process normal, cooperative, affect normal, speech normal and activity/motor behavior normal Speech: normal speech Thought process: normal thought process Assessment and Plan Assessment and Plan (1) Lumbar stenosis with neurogenic claudication: (2) Sacroiliitis: (3) Chronic, continuous use of opioids: Assessment and Plan: I feel these medications are improving the patient's quality of life and allow them to tolerate activities of daily living as well as participate in recreational activity.? The patient does not report intolerable side effects. The patient is NOT opioid naive and non-pharmacologic and non-opioid treatment has failed to significantly relieve the patient's pain and improve functionality. The patient has a diagnosis that is related to a somatic or visceral pain etiology. ? ?? I reviewed with the patient the potential risks and side effects with the use of? opioid medications including but not limited to respiratory depression,? sedation, and even . I verified the patient has access to naloxone should? these effects occur. I advised the patient to avoid the use of any other? sedation substances including alcohol, THC, and benzodiazepines while? taking opioid medications due to the risk of compounding side effects and? detrimental outcomes. I reviewed the [employer], pain treatment agreement, urine? drug screen, and opioid start talking forms. The patient was advised to let? their family know they had Naloxone in case they would need to administer? the medication.? ?? A drug screen was completed within the last year, and no aberrancies were noted regarding their use of controlled substances. The patient understands they are subject to the terms and conditions of the pain contract that they have signed. ? ?? I have checked an [facility] report on this patient today and there are no aberrancies noted in the prescribing history.? (4) Lumbar degenerative disc disease: (5) Left knee pain: (6) Myalgia, other site: Plan repeat left L4-5 L5-S1 TFESI under fluoroscopy, previous injection provided >50% improvement for 3 months increase gabapentin 200mg BID as tolerated, risks vs benefits reviewed update UDS today continue aquatherapy, PT, and HEP as tolerated f/u 2 weeks after procedure
== END 2024-04-25 10:22 | disposition home or self-care (01) ==
LOC: PM 10:21
PROVIDERS: PCP Family Medicine; Visit Provider Nurse Practitioner
DX: M48.062 Spinal stenosis, lumbar region with neurogenic claudication (principal); M46.1 Sacroiliitis, not elsewhere classified; Z79.891 Long term (current) use of opiate analgesic; M51.369 Other intervertebral disc degeneration, lumbar region without mention of lumbar back pain or lower extremity pain; M25.562 Pain in left knee; M79.18 Myalgia, other site
CPT/HCPCS: G0463

== ENCOUNTER 2024-04-30 09:45 | Day surgery (SDC) | payer MEDICARE, SELFPAY ==
[2024-04-30 09:49] VITALS: BP 175/81; PULSE 82; TEMP 37.7; O2SAT 98
--- OUTSIDE RECORDS SUMMARY | 2024-04-30 10:08 | XMS_ITS | CCD ---
Author Organization [facility] Care Team Providers Care Optician Name Role Phone PHYSICIAN, DEFAULT Unavailable Unavailable [...] Unavailable HOY ., DR MOJICA Consulting Unavailable [place], DR HERMES Jean Baptiste Consulting Unavailable LATANYA ., DR NIKO Austin Attending Unavailable LATANYA ., DR NIKO Austin Admitting Unavailable SEQUEIRA ., NOEMI Consulting Unavailable ESTLEA ., DR MOJICA Primary Care Unavailable Haley Matos, Colette MOORE Unavailable Galina Rogers MD Unavailable GALINA ROGERS Primary Care Unavailable CAROLYN VANEGAS Attending Unavailable MARTY DOZIER Attending Unavailable Galina Rogers Attending Unavailable Galina Rogers Admitting Unavailable JR. HALEY, COLETTE Dorman Attending Unavailvanda DE LEON JR., COLETTE Dorman Referring UnavailARMANDO Trinh Attending Unavailable Galina Rogers MD Primary Care Provider [phone] Ishmael MEANS, Lyn Adams Attending Unavailable Ishmael MEANS, Andrius Adams Attending Unavailable Ishmael MEANS, Andrius Adams Attending Unavailable Ishmael MEANS, Lyn Adams Attending Unavailable Ishmael MEANS, Lyn Adams Attending Unavailable Ishmael MEANS, Lyn Adams Attending Unavailable Allergies Allergy Classification Reported Allergen(s) Allergy Type Date of Onset Reaction(s) Facility (5 sources) Codeine; Translations: [CODEINE] Drug Allergy 09-14-19 13 Unknown [facility] (4 sources) Penicillins; Translations: [PENICILLINS] Drug Allergy 09-14-19 13 Unknown [facility] (4 sources) pregabalin; Translations: [PREGABALIN] Drug Allergy 05-15-19 23 Intolerance [facility] Work Phone: (5 sources) Propoxyphene; Translations: [PROPOXYPHENE] Drug Allergy 05-15-19 23 Rash, Unknown, GI intolerance, Headache [facility] (4 sources) quiNINE; Translations: [QUINAMM] Drug Allergy 05-15-19 23 GI Upset [facility] (5 sources) Decongest Multi-Action; Translations: [Decongest Multi-Action] Drug Allergy 05-15-19 23 Other: See Comments [facility] (1 source) Acetaminophen / HYDROcodone Drug Allergy [facility] (2 sources) Codeine Drug Allergy 09-14-19 13 [facility] (1 source) Fluconazole Drug Allergy [facility] (2 sources) Penicillins Drug allergy (disorder) 09-14-19 13 [facility] (1 source) pregabalin Drug Allergy [facility] (2 sources) Propoxyphene Drug Allergy [facility] (1 source) quiNINE Drug Allergy [facility] (1 source) Fluconazole Allergy to substance 12-06-19 Unknown [facility] (1 source) Penicillins Propensity to adverse reactions 08-03-19 Unknown [facility] (1 source) Pregabalin Propensity to adverse reactions 08-03-19 Dizziness [facility] (1 source) Pseudoephedrine Drug Allergy 08-03-19 [facility] (1 source) quiNINE Drug Allergy [...] mouth twice daily as needed HYDROcodone-acetamin ophen ([place]) 5-325 MG tablet 1 tablet as needed [...] Take by mouth twice a day. Active Iqvvicf-Aqxismn-Fjnav l Edwar (SALONPAS TD) (1 source) Camphor-Menthol- [...] above: Take by mouth twice daily. 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] Onset: 04-06-2022 Episodic Other [...] Test Name Value Interpretation Reference Range Facility [facility] 08-18-2023 L Specimen: [id number] Received: 08/22/23 Status: CECILIA Wright Num: [id number] Spec Type: Impression Subm Dr: Galina Rogers MD Tissues: PATHPER Procedures: PATHREVIEW Age/ Patient Sex Location Account Attending Physician Alexa Delgado 83/F LABELL [id number] Galina Rogers MD SPEC NUM: [id number] RECD: 08/22/23 STATUS: CECILIA WRIGHT NUM: [id number] JANET: 08/18/[address]: Galina Rogers MD ENTERED: 08/22/[address] [facility] [address]: Annie Rivas SPEC TYPE: Impression DEPT: SHELLIE Simmons ENTERED BY: [id number] RECV BY: [id number] ORDERED: PATHREVIEW ORDERED: PATHREVIEW Pathologist Review Abnormal [...] initial report for the needed correction CPT: 21474 ---- ---- Specimen: [id number] Received: 08/22/23 Status: CECILIA Wright Num: [id number] Spec Type: Impression Subm Dr: Galina Rogers MD Tissues: PATHPER Procedures: PATHREVIEW ---- Patient: Alexa Delgado [id number] (Continued) ---- Signed (signature on file) Anoop Abdul MD 08/24/23918 [place] [facility] Peter 09-21-2022 NICHOLE Office Visit (NSADHC ) ALEXA DELGADO ([id number]) 1940 F Date Time Provider Department 09/21/22 [...] Percentile 2 (more content not included)... Normal [facility] XR LSPINE 2_3 VIEWSon 2022 [...] by: HERMES MENDOZA Date: 2022-07-16 11:34 Normal [facility] CNOVon 05-14-2022 CNOV Office Visit (SPMESH ) ALEXA DELGADO ([id number]) 1940 F Date Time Provider Department 05/14/22 2:30 PM MARTY DOZIER SPMESH During your visit today, we recorded the following information about you: Pulse Blood pressure Weight Height 72/minute 158/87 76.4 kg 1.524 m Marty Dozier DO 05/15/2022 10:02 PM Signed [facility] [place] [facility] [...] Ratio: R>L low back Current Treatment: Medications [place] 5-325 mg BID - helps Diclofenac 75 [...] but still has pain -01/28/22 Noemi 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 Niko [...] today. She has an evaluation at the [facility] tomorrow at the [facility]. RECOMMENDATIONS: We will see the pat (more content not included)... Normal [facility] CULTURE URINEon 04-05-2022 CULTURE URINE Culture Observations : LIGHT GROWTH OF MIXED GENITAL ALANIS. NO POTENTIAL PATHOGENS SEEN. Normal [facility] Comment on above: Performed By: #### U RCX ####[facility] Mshoiklfq[address] [place], [place] [address]Dr. Grace Abdul UA RANDOM W/MICROSCOPICon BACTERIA NONE SEEN Normal NONE SEEN [facility] Comment on above: Performed By: #### U AMIC ####[facility] Himtwmgehw20[address] [place], [place] [address]Dr. Grace Abdul Bilirubin Ql (U) Negative Normal NEGATIVE [facility] Comment on above: Performed By: #### U AMIC ####[facility] Evxjgbbfib85[address] [place], [place] [address]Dr. Grace Abdul CAST NONE SEEN Normal NONE SEEN [facility] Comment on above: Performed By: #### U AMIC ####[facility] Vsdaundcyq40[address] [place], [place] [address]Dr. Grace Abdul Clarity (U) CLEAR Normal CLEAR [facility] Comment on above: Performed By: #### U AMIC ####[facility] [address] [place] [address]Dr. Grace Abdul Color (U) YELLOW Normal YELLOW [facility] Comment on above: Performed By: #### U AMIC ####[facility] Ufkuynmltj[address] [place], [place] [address]Dr. Grace Abdul Crystals LM Nom (Urine sed) NONE SEEN Normal NONE SEEN [facility] Comment on above: Performed By: #### U AMIC ####[facility] [address] [place] [address]Dr. Grace Abdul Epithelial cells LM Ql (Urine sed) RARE Normal NONE SEEN /RARE [facility] Comment on above: Performed By: #### U AMIC ####[facility] Q[address]wgetnl70[address] [place] [address]Dr. Grace Abdul Glucose Ql (U) Negative Normal NEGATIVE [facility] Comment on above: Performed By: #### U AMIC ####[facility] Imfmbeancc[address] [place], [place] [address]Dr. Grace Abdul Hemoglobin Ql (U) MODERATE Abnormal NEGATIVE [facility] Comment on above: Performed By: #### U AMIC ####[facility] Hfrlyctrfq0964[address] [place], [place] [address]Dr. Grace Abdul Ketones Ql (U) TRACE Abnormal NEGATIVE [facility] Comment on above: Performed By: #### U AMIC ####[facility] Oewhzxzurl[address] [place], [place] [address]Dr. Grace Abdul LEUKOCYTES TRACE Abnormal NEGATIVE [facility] Comment on above: Performed By: #### U AMIC ####[facility] Xpjmhtfyux[address] [place], [place] [address]Dr. Grace Abdul MUCOUS NONE SEEN Normal NONE SEEN [facility] Comment on above: Performed By: #### U AMIC ####[facility] Bxcxnyjcap394[address] [place], [place] [address]Dr. Grace Abdul Nitrite Ql (U) Negative Normal NEGATIVE [facility] Comment on above: Performed By: #### U AMIC ####[facility] Vpmkuhrhcp[address] [place], [place] [address]Dr. Grace Abdul pH (U) 5.0 [pH] Normal 5-9 [facility] Comment on above: Performed By: #### U AMIC ####[facility] Jpakeajbfu24[address] [place], [place] [address]Dr. Grace Abdul RBC 0-2 Normal 0-2 [facility] Comment on above: Performed By: #### U AMIC ####[facility] Jkzwlnunlw7[address] [place], [place] [address]Dr. Grace Abdul SPEC GRAVITY 1.015 Normal 1.005-<=1.025 [facility] Comment on above: Performed By: #### U AMIC ####[facility] Yitzqozhea[address] [place], [place] [address]Dr. Grace Abdul UA PROTEIN Negative Normal NEGATIVE/ TRACE [facility] Comment on above: Performed By: #### U AMIC ####[facility] [address] [place] [id number]. Grace Franko Urobilinogen Qn (U) 0.2 {Ashley'U}/dL Normal 0.2 - 1. 0 [facility] Comment on above: Performed By: #### U AMIC ####[facility] Pyadcbkfaw4[address] [place], [place] [address]Dr. Benitalee ann Abdul WBC 0-2 Abnormal NONE SEEN [facility] Comment on above: Performed By: #### U AMIC ####[facility] Peiywpbrnh[address] [place], [place] [address]Dr. Grace Abdul CBC AUTO DIFFon 04-04-2022 BASO # 0.0 103/ul Normal 0.0-0.1 [facility] Comment on above: Performed By: #### C BC ####[facility] Wxcpxomccc96[address] [place], [place] [address]Dr. Grace Abdul Basophils/100 WBC (Bld) 0.4 % Normal 0.2-2.0 [facility] Comment on above: Performed By: #### C BC ####[facility] Uhiuwybuii[address] [place], [place] [address]DrLisette Abdul EO # 0.1 103/ul Normal 0.0-0.7 [facility] Comment on above: Performed By: #### C BC ####[facility] Qxjmujdikx[address] [place], [place] [address]DrLisette Benitalee ann Abdul Eosinophils/100 WBC (Bld) 1.3 % Normal 0.9-7.0 [facility] Comment on above: Performed By: #### C BC ####[facility] Emcygkpsca[address] [place], [place] [address]DrLisette Abdul Erythrocyte distribution width (RBC) [Ratio] 13.7 % Normal 11.0-15.0 [facility] Comment on above: Performed By: #### C BC ####[facility] Oufyciuwhq[address] [place], [place] [address]DrLisette Abdul Hematocrit (Bld) [Volume fraction] 37.2 % Normal 36.0-48.0 [facility] Comment on above: Performed By: #### C BC ####[facility] [address]tr[address]awa[address] [place] [address]DrLisette Grace Franko Hemoglobin (Bld) [Mass/Vol] 12.4 g/dL Normal 12.0-16.0 [facility] Comment on above: Performed By: #### C BC ####[facility] Ujcvuvjveq6[address] [place], [place] [address]DrLisette Abdul IG # 0.02 10e3/ul Normal 0.00-0.03 [facility] Comment on above: Performed By: #### C BC ####[facility] Jhkcaeesfb4978[address] [place], [place] [address]DrLisette Abdul IG % 0.4 % Normal 0.0-0.5 [facility] Comment on above: Performed By: #### C BC ####[facility] Jdtcycbxgn7860[address] [place], [place] [address]DrLisette Abdul LYMPH # 0.8 103/ul Critically low 1.2-3.8 [facility] Comment on above: Performed By: #### C BC ####[facility] Eiylxvqddc[address] [place], [place] [address]DrLisette Abdul Lymphocytes/100 WBC (Bld) 13.9 % Critically low 20.5-60.0 [facility] Comment on above: Performed By: #### C BC ####[facility] Wokylrezmz[address] [place], [place] [address]DrLisette Abdul MANUAL DIFF REQ NO Normal [facility] Comment on above: Performed By: #### C BC ####[facility] Rshuxgtnza3314[address] [place], [place] [address]DrLisette Abdul MCH (RBC) [Entitic mass] 30.5 pg Normal 26.7-34.0 [facility] Comment on above: Performed By: #### C BC ####[facility] Qgiovnkcih0198[address] [place], [place] [address]Dr. Grace Abdul MCHC (RBC) [Mass/Vol] 33.3 g/dL Normal 29.9-35.2 [facility] Comment on above: Performed By: #### C BC ####[facility] [address]ch[address] [place] [address]DrLisette Grace Franko MCV (RBC) [Entitic vol] 91.4 fL Normal 81.0-99.0 [facility] Comment on above: Performed By: #### C BC ####[facility] Yxnivrrjgt23[address] [place], [place] [address]DrLisette Abdul MONO # 0.7 103/ul Normal 0.3-0.8 [facility] Comment on above: Performed By: #### C BC ####[facility] Ghbifgbfqt9725[address] [place], [place] [address]DrLisette Abdul Monocytes/100 WBC (Bld) 13.5 % Critically high 1.7-12.0 [facility] Comment on above: Performed By: #### C BC ####[facility] Hrbkirghrr[address] [place], [place] [address]Dr. Grace Abdul NEUT # 3.8 103/ul Normal 1.4-6.5 [facility] Comment on above: Performed By: #### C BC ####[facility] Dwfahtuduv[address] [place], [place] [address]Dr. Grace Abdul Neutrophils/100 WBC (Bld) 70.5 % Normal 43.0-75.0 [facility] Comment on above: Performed By: #### C BC ####[facility] Nmtegatcos[address] [place], [place] [address]DrLisette Abdul Platelet mean volume (Bld) [Entitic vol] 9.0 fL Critically low 9.5-13.5 [facility] Comment on above: Performed By: #### C BC ####[facility] Rgcurhwtnm[address] [place], [place] [address]Dr. Grace Abdul PLT 283 103/ul Normal 150-450 [facility] Comment on above: Performed By: #### C BC ####[facility] Urebnphqbb049[address] [place], [place] [address]DrLisette Abdul RBC 4.07 106/ul Critically low 4.20-5.40 [facility] Comment on above: Performed By: #### C BC ####[facility] Mxg[address]ijxk75[address] [place], [place] [address]ZuLisette Abdul WBC 5.4 103/ul Normal 4.0-11.0 [facility] Comment on above: Performed By: #### C BC ####[facility] Exciqenaqc[address] [place], [place] [address] ABD/PELV W CONon 04-04-19 23 [...] EMILY NAVARRETE Date: 2022-04-04 16:59 Normal [facility] ER URINE PROFILEon 3 Bilirubin Ql (U) Negative Normal NEGATIVE [facility] Comment on above: Performed By: #### ROBERT FELDER ####[facility] [address]fx[address] [place] [address]Dr. Grace Abdul Clarity (U) CLEAR Normal CLEAR [facility] Comment on above: Performed By: #### ROBERT FELDER ####[facility] Qqppwdtvrx[address] [place] [address]Dr. Grace Abdul Color (U) LT. YELLOW Normal YELLOW [facility] Comment on above: Performed By: #### ROBERT FELDER ####[facility] Qbtbkqajhj[address] [place], [place] [address]Dr. Grace Abdul ERUAHD A micrscopic examination will be performed if indicated. Normal [facility] Comment on above: Performed By: #### ROBERT FELDER ####[facility] Htfmksmchf[address] [place], [place] [address]Dr. Grace Abdul Glucose Ql (U) Negative Normal NEGATIVE [facility] Comment on above: Performed By: #### ROBERT FELDER ####[facility] Kqtcdeadct[address] [place], [place] [address]Dr. Grace Abdul Hemoglobin Ql (U) SMALL Abnormal NEGATIVE [facility] Comment on above: Performed By: #### ROBERT FELDER ####[facility] Pgzwxxsqnt1839[address] [place], [place] [address]Dr. Grace Abdul Ketones Ql (U) Negative Normal NEGATIVE [facility] Comment on above: Performed By: #### ROBERT FELDER ####[facility] Tjymvyxrgn[address] [place], [place] [address]Dr. Grace Abdul LEUKOCYTES TRACE Abnormal NEGATIVE [facility] Comment on above: Performed By: #### ROBERT FELDER ####[facility] Iuggucmryq424[address] [place], [place] [address]Dr. Benitalan Franko Nitrite Ql (U) Negative Normal NEGATIVE [facility] Comment on above: Performed By: #### GINA FELDERRO ####[facility] [address]uk[address] [place] [address]Dr. Grace Abdul pH (U) 7.5 [pH] Normal 5-9 [facility] Comment on above: Performed By: #### GINA FELDERRO ####[facility] Ocs[address]wvjx[address] [place] [address]Dr. Grace Abdul SPEC GRAVITY 1.005 Normal 1.005-<=1.025 [facility] Comment on above: Performed By: #### Anthony ELLISON CARLENERO ####[facility] W[address]td[address]zlc[address] [place] [address]Dr. Grace Abdul UA PROTEIN Negative Normal NEGATIVE/ TRACE [facility] Comment on above: Performed By: #### GINA FELDERRO ####[facility] Ltqjhlngql[address] [place] [address]Dr. Grace Abdul UR MICRO IND INDICATED Normal [facility] Comment on above: Performed By: #### GINA FELDERRO ####[facility] Fsw[address]xsyuyl[address] [place] [address]Dr. Grace Abdul Urobilinogen Qn (U) 0.2 {Ashley'U}/dL Normal 0.2 - 1. 0 [facility] Comment on above: Performed By: #### GINA FELDERRO ####[facility] [address]ras[address] [place] [address]DrLisette Abdul LIPASEon 04-04-2022 Lipase [Catalytic activity/Vol] 115.0 U/L Normal 73.0-393.0 [facility] Comment on above: Performed By: #### Lakia PATIÑO #### [facility] [address] [place] [address] Dr. Grace Abdul PROF 14(COMP METB)on 023 Albumin [Mass/Vol] 3.6 g/dL Normal 3.4-5.0 [facility] Comment on above: Performed By: #### Lakia PATIÑO #### [facility] [address] [place] [address] Dr. Grace Abdul Albumin/Globulin [Mass ratio] 1.1 {ratio} Normal [facility] Comment on above: Performed By: #### C VDTBH #### [facility] [address] [place] [address] Dr. Grace Abdul ALP [Catalytic activity/Vol] 74 U/L Normal 46-116 [facility] Comment on above: Performed By: #### C VDTBH #### [facility] [address] [place] [address] Dr. Grace Abdul ALT [Catalytic activity/Vol] 23 U/L Normal 14-59 [facility] Comment on above: Performed By: #### C VDTBH #### [facility] [address] [place] [address] Dr. Grace Abdul Anion gap [Moles/Vol] 12.1 mmol/L Normal [facility] Comment on above: Performed By: #### C VDTBH #### [facility] [address] [place] [address] Dr. Grace Abdul AST [Catalytic activity/Vol] 21 U/L Normal 15-37 [facility] Comment on above: Performed By: #### C VDTBH #### [facility] [address] [place] [address] Dr. Grace Abdul Bilirubin [Mass/Vol] 0.2 mg/dL Normal 0.2-1.0 [facility] Comment on above: Performed By: #### C VDTBH #### [facility] [address] [place] [address] Dr. Grace Abdul Calcium [Mass/Vol] 9.3 mg/dL Normal 8.5-10.1 [facility] Comment on above: Performed By: #### C VDTBH #### [facility] [address] [place] [address] Dr. Grace Abdul Chloride [Moles/Vol] 99 mmol/L Normal 98-107 [facility] Comment on above: Performed By: #### C VDTBH #### [facility] [address] [place] [address] Dr. Grace Abdul CO2 [Moles/Vol] 31.2 mmol/L Normal 21.0-32.0 [facility] Comment on above: Performed By: #### C VDTBH #### [facility] [address] [place] [address] [address] Grace Abdul Creatinine [Mass/Vol] 1.22 mg/dL Critically high 0.55-1.02 [facility] Comment on above: Performed By: #### C VDTBH #### [facility] [address] [place] [address] [address] Grace Abdul EGFR-AF [place] 51 mL/min/1.73m2 Critically low >=60 [facility] Comment on above: Performed By: #### C VDTBH #### [facility] [address] [place] [address] Dr. Grace Abdul EGFR-NON AF [place] 42 mL/min/1.73m2 Critically low >=60 [facility] Comment on above: Performed By: #### C VDTBH #### [facility] [address] [place] [address] Dr. Grace Abdul Globulin (S) [Mass/Vol] 3.3 g/dL Normal [facility] Comment on above: Performed By: #### C VDTBH #### [facility] [address] [place] [address] Dr. Grace Abdul Glucose [Mass/Vol] 115 mg/dL Critically high 74-106 T [facility] Comment on above: Performed By: #### C VDTBH #### [facility] [address] [place] [address] [address] Grace Abdul Potassium [Moles/Vol] 3.3 mmol/L Critically low 3.5-5.1 [facility] Comment on above: Performed By: #### C VDTBH #### [facility] [address] [place] [address] [address] Grace Abdul Protein [Mass/Vol] 6.9 g/dL Normal 6.4-8.2 [facility] Comment on above: Performed By: #### C VDTBH #### [facility] [address] [place] [address] [address] Grace Abdul Sodium [Moles/Vol] 139 mmol/L Normal 136-145 [facility] Comment on above: Performed By: #### C VDTBH #### [facility] [address] [place] [address] [address] Grace Abdul Urea nitrogen [Mass/Vol] 23.0 mg/dL Critically high 7.0-18.0 [facility] Comment on above: Performed By: #### C VDTBH #### [facility] [address] [place] [address] [address] Grace Abdul Urea nitrogen/Creatinine [Mass ratio] 18.9 mg/mg Normal [facility] Comment on above: Performed By: #### C JOETBH #### [facility] [address] [place] [address] [address] Grace Abdul URINE MICROSCOPIC ONLYon BACTERIA NONE SEEN Normal NONE SEEN [facility] Comment on above: Performed By: #### GINA FELDERRO ####[facility] [address] [place] [address]Dr. Grace Abdul Bacteria identified Cx Nom (U) NOT INDICATED Normal [facility] Comment on above: Performed By: #### GINA FELDERRO ####[facility] [address]oul[address] [place] [address]Dr. Grace Abdul CAST NONE SEEN Normal NONE SEEN [facility] Comment on above: Performed By: #### GINA FELDERRO ####[facility] [address] [place] [address]Dr. Grace Abdul Crystals LM Nom (Urine sed) NONE SEEN Normal NONE SEEN [facility] Comment on above: Performed By: #### GINA FELDERRO ####[facility] [address]oks[address] [place] [address]Dr. Grace Abdul Epithelial cells LM Ql (Urine sed) RARE Normal NONE SEEN /RARE [facility] Comment on above: Performed By: #### GINA FELDERRO ####[facility] [address] [place] [address]DrLisette Abdul MUCOUS NONE SEEN Normal NONE SEEN [facility] Comment on above: Performed By: #### ROBERT FELDER ####[facility] [address]zf[address] [place] [address]DrLisette Abdul RBC 0-2 Normal 0-2 [facility] Comment on above: Performed By: #### ROBERT FELDER ####[facility] [address] [place] [address]Dr. Grace Abdul WBC 0-2 Abnormal NONE SEEN [facility] Comment on above: Performed By: #### ROBERT FELDER ####[facility] L[address]mufuuyde[address]131 [place] [address]DrLisette Abdul BNPon 12-11-2021 Natriuretic peptide B (Bld) [Mass/Vol] 665.0 pg/mL Normal <=1,800.0 [facility] Comment on above: Performed By: #### B MP #### [facility] [address] [address] [address] Grace Abdul CBC AUTO DIFFon 12-11-2021 BASO # 0.0 103/ul Normal 0.0-0.1 [facility] Comment on above: Performed By: #### C BC ####[facility] Pfvnyyrfgg8616 [place] [address]DrLisette Abdul Basophils/100 WBC (Bld) 0.5 % Normal 0.2-2.0 [facility] Comment on above: Performed By: #### C BC ####[facility] Hvutjuiqxf2540 [place] [address]DrLisette Abdul EO # 0.1 103/ul Normal 0.0-0.7 [facility] Comment on above: Performed By: #### C BC ####[facility] Mfylwouwms3182 [place] [address]DrLisette Abdul Eosinophils/100 WBC (Bld) 1.9 % Normal 0.9-7.0 [facility] Comment on above: Performed By: #### C BC ####[facility] Idjwckbana3356 [place] [address]Dr. Grace Abdul Erythrocyte distribution width (RBC) [Ratio] 13.4 % Normal 11.0-15.0 [facility] Comment on above: Performed By: #### C BC ####[facility] Aoymlwlscw6525 [place] [address]Dr. Grace Abdul Hematocrit (Bld) [Volume fraction] 36.2 % Normal 36.0-48.0 [facility] Comment on above: Performed By: #### C BC ####[facility] Axdnzvejei[address] [place], [place] [address]Dr. Grace Abdul Hemoglobin (Bld) [Mass/Vol] 11.9 g/dL Critically low 12.0-16.0 [facility] Comment on above: Performed By: #### C BC ####[facility] Ffkskjjssy[address] [place], [place] [address]Dr. Grace Abdul IG # 0.01 10e3/ul Normal 0.00-0.03 [facility] Comment on above: Performed By: #### C BC ####[facility] [address] [place], [place] [address]Dr. Grace Franko IG % 0.2 % Normal 0.0-0.5 [facility] Comment on above: Performed By: #### C BC ####[facility] Xxqorgvbul[address] [place], [place] [address]Dr. Grace Franko LYMPH # 0.5 103/ul Critically low 1.2-3.8 [facility] Comment on above: Performed By: #### C BC ####[facility] [address] [place], [place] [id number]. Grace Franko Lymphocytes/100 WBC (Bld) 11.5 % Critically low 20.5-60.0 [facility] Comment on above: Performed By: #### C BC ####[facility] Yaullaizjl[address] [place], [place] [address]Dr. Grace Franko MANUAL DIFF REQ NO Normal The [facility] Comment on above: Performed By: #### C BC ####[facility] [address]vq[address] [place], [place] [address]Dr. Grace Abdul MCH (RBC) [Entitic mass] 31.6 pg Normal 26.7-34.0 [facility] Comment on above: Performed By: #### C BC ####[facility] Qwoxtrelkl0161 [place] [address]Dr. Grace Abdul MCHC (RBC) [Mass/Vol] 32.9 g/dL Normal 29.9-35.2 [facility] Comment on above: Performed By: #### C BC ####[facility] Updcdoyxny6439 [place] [address]Dr. Grace Abdul MCV (RBC) [Entitic vol] 96.0 fL Normal 81.0-99.0 [facility] Comment on above: Performed By: #### C BC ####[facility] Agkolwickj8847 [place] [address]Dr. Grace Abdul MONO # 0.6 103/ul Normal 0.3-0.8 [facility] Comment on above: Performed By: #### C BC ####[facility] Mbesmkxwfz5181 [place] [address]Dr. Grace Abdul Monocytes/100 WBC (Bld) 14.4 % Critically high 1.7-12.0 [facility] Comment on above: Performed By: #### C BC ####[facility] Khqmzwexfl9730 [place] [address]Dr. Grace Abdul NEUT # 3.0 103/ul Normal 1.4-6.5 [facility] Comment on above: Performed By: #### C BC ####[facility] Sxbeirynhd[address] [place], [place] [address]Dr. Grace Abdul Neutrophils/100 WBC (Bld) 71.5 % Normal 43.0-75.0 [facility] Comment on above: Performed By: #### C BC ####[facility] Qfdzzpdgat4138 [place] [address]Dr. Grace Abdul Platelet mean volume (Bld) [Entitic vol] 9.2 fL Critically low 9.5-13.5 [facility] Comment on above: Performed By: #### C BC ####[facility] Emwtcgmkol1595 [place], [place] [address]Zl. Grace Abdul PLT 290 103/ul Normal 150-450 [facility] Comment on above: Performed By: #### C BC ####[facility] Mzzsughoqr0159 [place], [place] [address]Qw. rGace Abdul RBC 3.77 106/ul Critically low 4.20-5.40 [facility] Comment on above: Performed By: #### C BC ####[facility] Rrhjgrnmwq5542 [place], [place] [address]Er. Grace Abdul WBC 4.2 103/ul Normal 4.0-11.0 [facility] Comment on above: Performed By: #### C BC ####[facility] Wrpynliooo[address] [place] [id number] Abdul FREE THYROXINE INDEX T7on FTI 2.63 Normal 1.30-4.50 [facility] Comment on above: Performed By: #### B MP #### [facility] [address] [address] [address] Grace Abdul T3U 35.0 % Normal 30.0-39.0 [facility] Comment on above: Performed By: #### B MP #### [facility] [address] [address] [address] Grace Abdul T4 [Mass/Vol] 7.50 ug/dL Normal 4.80-13.90 [facility] Comment on above: Performed By: #### B MP #### [facility] [address] [address] [address] Grace Abdul GLYCOHEMOGLOBIN A1Con 2021 ADA RECOMMENDATION SEE BELOW Normal [facility] Comment on above: Result Comment: ADA RECOMMENDED LIMIT 4.0 - 6.0 ADA THERAPEUTIC TARGET < 7.0 ACTION SUGGESTED > 7.0 Performed By: #### A 1C ####[facility] Ylyzgmywbn3010 [place] [address]DrLisette Abdul Glucose [Mass/Vol] 111 mg/dL Normal [facility] Comment on above: Performed By: #### A 1C ####[facility] Qyrxffydio[address] [place] [id number] Abdul HbA1c (Bld) [Mass fraction] 5.5 % Normal 4.5-6.2 [facility] Comment on above: Performed By: #### A 1C ####[facility] Tspwvducvc5789 [place] [address]DrLisette Abdul IRONon 12-11-2021 Iron [Mass/Vol] 50.0 ug/dL Normal 50.0-170.0 [facility] Comment on above: Performed By: #### I DARIN, VITAD, VITB12 ####[facility] Dbfsgqadvn7322 [place] [address]DrLisette Abdul LIPID PROFILEon 12-11-2021 CHOL-HDL RATIO NORM SEE BELOW Normal [facility] Comment on above: Result Comment: 3.3 - 4.4 LOW RISK 4.4 - 7.1 AVERAGE RISK 7.1 - 11.0 MODERATE RISK >11.0 HIGH RISK Performed By: #### B MP #### [facility] [address] [address] [address] Grace Abdul Cholesterol [Mass/Vol] 182 mg/dL Normal <=200 [facility] Comment on above: Performed By: #### B MP #### [facility] [address] [address] [address] Grace Abdul Cholesterol in HDL [Mass/Vol] 60 mg/dL Normal 40-60 [facility] Comment on above: Performed By: #### B MP #### [facility] [address] [address] [address] Grace Abdul Cholesterol in LDL [Mass/Vol] 101.2 mg/dL Normal [facility] Comment on above: Performed By: #### B MP #### [facility] [address] [address] [address] Grace Abdul Cholesterol.total/Ch olesterol in HDL [Mass ratio] 3.0 {ratio} Normal [facility] Comment on above: Performed By: #### B MP #### [facility] [address] [address] [address] Grace Abdul HDL NORMAL > or = 60 mg/dl - LO W CARDIOVASCULAR RISK <40 mg/dl - HIGH CARDIOVASCULAR RISK Normal [facility] Comment on above: Performed By: #### B MP #### [facility] [address] [place] [address] Dr. Grace Abdul LDL CALC NORMAL SEE BELOW Normal [facility] Comment on above: Result Comment: <100 mg/dl OPTIMAL 100 - 129 mg/dl NEAR OR ABOVE OPTIMAL 130 - 159 mg/dl BORDERLINE HIGH 160 - 189 mg/dl HIGH >190 mg/dl VERY HIGH Performed By: #### B MP #### [facility] [address] [place] [address] Dr. Grace Abdul Triglyceride [Mass/Vol] 104 mg/dL Normal <=150 [facility] Comment on above: Performed By: #### B MP #### [facility] [address] [place] [address] Dr. Grace Abdul VLDL CALC 20.8 mg/dL Normal [facility] Comment on above: Performed By: #### B MP #### [facility] [address] [place] [address] Dr. Grace Abdul PROF 14(COMP METB)on 12-11- 022 Albumin [Mass/Vol] 3.5 g/dL Normal 3.4-5.0 [facility] Comment on above: Performed By: #### B MP #### [facility] [address] [place] [address] Dr. Grace Abdul Albumin/Globulin [Mass ratio] 1.0 {ratio} Normal [facility] Comment on above: Performed By: #### B MP #### [facility] [address] [address] [address] Grace Abdul ALP [Catalytic activity/Vol] 55 U/L Normal 46-116 [facility] Comment on above: Performed By: #### B MP #### [facility] [address] [place] [address] Dr. Grace Abdul ALT [Catalytic activity/Vol] 21 U/L Normal 14-59 [facility] Comment on above: Performed By: #### B MP #### [facility] [address] [address] [address] Grace Abdul Anion gap [Moles/Vol] 9.3 mmol/L Normal [facility] Comment on above: Performed By: #### B MP #### [facility] [address] [address] [address] Grace Abdul AST [Catalytic activity/Vol] 21 U/L Normal 15-37 [facility] Comment on above: Performed By: #### B MP #### [facility] [address] [address] [address] Grace Abdul Bilirubin [Mass/Vol] 0.3 mg/dL Normal 0.2-1.0 [facility] Comment on above: Performed By: #### B MP #### [facility] [address] [address] [address] Grace Abdul Calcium [Mass/Vol] 9.5 mg/dL Normal 8.5-10.1 [facility] Comment on above: Performed By: #### B MP #### [facility] [address] [address] [address] Grace Abdul Chloride [Moles/Vol] 102 mmol/L Normal 98-107 [facility] Comment on above: Performed By: #### B MP #### [facility] [address] [address] [address] Grace Abdul CO2 [Moles/Vol] 28.5 mmol/L Normal 21.0-32.0 [facility] Comment on above: Performed By: #### B MP #### [facility] [address] [address] [address] Grace Abdul Creatinine [Mass/Vol] 1.04 mg/dL Critically high 0.55-1.02 [facility] Comment on above: Performed By: #### B MP #### [facility] [address] [address] [address] Grace Abdul EGFR-AF [place] ISLANDER >60 Normal >=60 [facility] Comment on above: Performed By: #### B MP #### [facility] [address] [address] [address] Grace Abdul EGFR-NON AF [place]ER 51 mL/min/1.73m2 Critically low >=60 [facility] Comment on above: Performed By: #### B MP #### [facility] [address] [place] [address] Dr. Grace Abdul Globulin (S) [Mass/Vol] 3.5 g/dL Normal [facility] Comment on above: Performed By: #### B MP #### [facility] [address] [address] [address] Grace Abdul Glucose [Mass/Vol] 102 mg/dL Normal 74-106 [facility] Comment on above: Performed By: #### B MP #### [facility] [address] [place] [address] Dr. Grace Abdul Potassium [Moles/Vol] 3.8 mmol/L Normal 3.5-5.1 [facility] Comment on above: Performed By: #### B MP #### [facility] [address] [place] [address] Dr. Grace Abdul Protein [Mass/Vol] 7.0 g/dL Normal 6.4-8.2 [facility] Comment on above: Performed By: #### B MP #### [facility] [address] [place] [address] Dr. Grace Abdul Sodium [Moles/Vol] 136 mmol/L Normal 136-145 [facility] Comment on above: Performed By: #### B MP #### [facility] [address] [place] [address] Dr. Grace Abdul Urea nitrogen [Mass/Vol] 20.0 mg/dL Critically high 7.0-18.0 [facility] Comment on above: Performed By: #### B MP #### [facility] [address] [place] [address] Dr. Grace Abdul Urea nitrogen/Creatinine [Mass ratio] 19.2 mg/mg Normal [facility] Comment on above: Performed By: #### B MP #### [facility] [address] [place] [address] Dr. Grace Abdul TSHon 12-11-2021 TSH 0.247 uIU/mL Critically low 0.358-3.740 [facility] Comment on above: Performed By: #### B MP #### [facility] [address] [place], [place] [address] Dr. Grace Abdul VITAMIN B12on 12-11-2021 Cobalamin (Vitamin B12) [Mass/Vol] 762.0 pg/mL Normal 193.0-986.0 [facility] Comment on above: Performed By: #### I DARIN VITAD, VITB12 ####[facility] Ble[address]xuxsmn[address] [place] [address]Dr. Grace Abdul VITAMIN D 25 OHon 12-11-2021 VIT D 25-OH 54.9 ng/mL Normal [facility] Comment on above: Performed By: #### I DARIN VITAD, VITB12 ####[facility] Uopmcnflhw84[address] [place] [address]Dr. Grace Abdul VIT D RANGES SEE BELOW Normal [facility] Comment on above: Result Comment: <20 ng/mL Vit D deficient 20 - <30 ng/mL Vit D insufficient 30 - 100 ng/mL Vit D sufficient >100 ng/mL Potential Toxicity Performed By: #### I DARIN VITAD, VITB12 ####[facility] Ozegrkmgmt2354 [place] [address]DrLisette Abdul MG MAMM SCREEN 3D CLEMENCIA CADon 11-25-2021 MG MAMM SCREEN 3D CLEMENCIA CAD Patient: ALEXA DELGADO Exam Date: 11/25/2021 : 1940 Gender:F Ordering : DR GALINA ROGERS . Admission #: [id number] Family : DR ARMANDO MORALES Order #: [id number] CLICK HERE TO VIEW EXAM RADIOLOGY REPORT [...] Treatments None Family Cancers None LOCATION: [facility] BREAST COMPOSITION: Scattered areas fibroglandular density. [...] MD on 11/25/2021 at 14:14 Normal [facility] CULTURE URINEon 11-24-2021 CULTURE URINE Culture Observations : LIGHT GROWTH OF MIXED GENITAL ALANIS. NO POTENTIAL PATHOGENS SEEN. Normal [facility] Comment on above: Performed By: #### U RCX ####[facility] Qxpwqhzpau[address] [place] [address]Dr. Grace Abdul GI PANEL (PCR)on 11-24-2021 Adenovirus F 40/41 Not detected Normal NOT DETECTED [facility] Comment on above: Performed By: #### C BC #### [facility] [address] [address] [address] Grace Abdul Astrovirus Not detected Normal NOT DETECTED [facility] Comment on above: Performed By: #### C BC #### [facility] [address] [address] [address] Grace Dorman. Diff toxin A/B Not detected Normal NOT DETECTED [facility] Comment on above: Performed By: #### C BC #### [facility] [address] [address] [address] Grace Abdul Campylobacter Not detected Normal NOT DETECTED [facility] Comment on above: Performed By: #### C BC #### [facility] [address] [address] [address] Grace Abdul Cryptosporidium Not detected Normal NOT DETECTED [facility] Comment on above: Performed By: #### C BC #### [facility] [address] [address] [address] Grace Abdul Cyclos. Cayetanensis Not detected Normal NOT DETECTED [facility] Comment on above: Performed By: #### C BC #### [facility] [address] [place] [address] Dr. Grace Abdul E. Coli O157 Not Applicable Normal Not Applicable [facility] Comment on above: Performed By: #### C BC #### [facility] [address] [place] [address] Dr. Grace Abdul E. histolytica Not detected Normal NOT DETECTED [facility] Comment on above: Performed By: #### C BC #### [facility] [address] [place] [address] Dr. Grace Abdul EAEC Not detected Normal NOT DETECTED [facility] Comment on above: Performed By: #### C BC #### [facility] [address] [place] [address] Dr. Grace Abdul EIEC Not detected Normal NOT DETECTED [facility] Comment on above: Performed By: #### C BC #### [facility] [address] [place] [address] Dr. Grace Abdul EPEC Not detected Normal NOT DETECTED [facility] Comment on above: Performed By: #### C BC #### [facility] [address] [place] [address] Dr. Grace Abdul ETEC Not detected Normal NOT DETECTED [facility] Comment on above: Performed By: #### C BC #### [facility] [address] [place] [address] Dr. Grace Abdul G. Lamblia Not detected Normal NOT DETECTED [facility] Comment on above: Performed By: #### C BC #### [facility] [address] [place] [address] Dr. Grace BURGESSL CONTROLS PASSED Normal [facility] Comment on above: Performed By: #### C BC #### [facility] [address] [place] [address] Dr. Grace NOLASCONL KAUR HEADER GI PANEL BACTERIA Normal T [facility] Comment on above: Performed By: #### C BC #### [facility] [address] [place] [address] Dr. Grace SANDERS ECOLI GI PANEL DIARRHEAGEN IC E.COLI / SHIGELLA Normal [facility] Comment on above: Performed By: #### C BC #### [facility] [address] [address] [address] Grace SANDERS INFO SEE BELOW Normal [facility] Comment on above: Result Comment: EAEC - Enteroaggregative E. Coli EPEC- Enteropathogenic E. Coli ETEC- Enterotoxigenic E. Coli lt/st STEC- Shigella-like toxin-producing E. Coli stx1/stx2 EIEC- Shigella/Enteroinvasive E. Coli Performed By: #### C BC #### [facility] [address] [address] [address] Grace SANDERS PARASITES GI PANEL PARASITES Normal [facility] Comment on above: Performed By: #### C BC #### [facility] [address] [address] [address] Grace SANDERS VIRUS GI PANEL VIRUSES Normal [facility] Comment on above: Performed By: #### C BC #### [facility] [address] [address] [address] Grace Abdul Norovirus GI/GII Not detected Normal NOT DETECTED [facility] Comment on above: Performed By: #### C BC #### [facility] [address] [address] [address] Grace Abdul P. Shigelloides Not detected Normal NOT DETECTED [facility] Comment on above: Performed By: #### C BC #### [facility] [address] [address] [address] Grace Abdul Rotavirus A Not detected Normal NOT DETECTED [facility] Comment on above: Performed By: #### C BC #### [facility] [address] [address] [address] Grace Abdul Salmonella Not detected Normal NOT DETECTED [facility] Comment on above: Performed By: #### C BC #### [facility] [address] [address] [address] Grace Abdul Sapovirus Not detected Normal NOT DETECTED [facility] Comment on above: Performed By: #### C BC #### [facility] [address] [address] [address] Grace MCGUIREC Not detected Normal NOT DETECTED [facility] Comment on above: Performed By: #### C BC #### [facility] [address] [address] [address] Grace Abdul Vibrio Not detected Normal NOT DETECTED [facility] Comment on above: Performed By: #### C BC #### [facility] [address] [address] [address] Grace Abdul Vibrio Cholera Not detected Normal NOT DETECTED [facility] Comment on above: Performed By: #### C BC #### [facility] [address] [address] [address] Grace Abdul Y. Enterocolitica Not detected Normal NOT DETECTED [facility] Comment on above: Performed By: #### C BC #### [facility] [address] [address] [address] Grace Abdul UA RANDOM W/MICROSCOPICon BACTERIA NONE SEEN Normal NONE SEEN [facility] Comment on above: Performed By: #### U AMIC ####[facility] Bgygibvxim0[address] [place] [address]DrLisette Abdul Bilirubin Ql (U) Negative Normal NEGATIVE [facility] Comment on above: Performed By: #### U AMIC ####[facility] Jxehphmhqu[address] [place] [address]Dr. Grace Abdul CAST NONE SEEN Normal NONE SEEN [facility] Comment on above: Performed By: #### U AMIC ####[facility] Zetnacckdr4634 [place] [address]DrLisette Abdul Clarity (U) CLEAR Normal CLEAR [facility] Comment on above: Performed By: #### U AMIC ####[facility] Uxytcvovvb6836 [place] [address]DrLisette Abdul Color (U) LT. YELLOW Normal YELLOW [facility] Comment on above: Performed By: #### U AMIC ####[facility] Qk[address]lkutf[address] [place] [id number]. Grace Abdul Crystals LM Nom (Urine sed) NONE SEEN Normal NONE SEEN [facility] Comment on above: Performed By: #### U AMIC ####[facility] Seqctpxqcm4[address] [place] [address]Dr. Grace Abdul Epithelial cells LM Ql (Urine sed) FEW Abnormal NONE SEEN /RARE [facility] Comment on above: Performed By: #### U AMIC ####[facility] Qfchukryvk4255 [place] [address]Dr. Grace Abdul Glucose Ql (U) Negative Normal NEGATIVE [facility] Comment on above: Performed By: #### U AMIC ####[facility] [address]ks[address]neswf[address] [place], [place] [address]Dr. Grace Abdul Hemoglobin Ql (U) TRACE-INTACT Abnormal NEGATIVE [facility] Comment on above: Performed By: #### U AMIC ####[facility] [address] [place], [place] [address]Dr. Grace Abdul Ketones Ql (U) Negative Normal NEGATIVE [facility] Comment on above: Performed By: #### U AMIC ####[facility] Efa[address]ixwnec[address] [place], [place] [address]Dr. Grace Abdul LEUKOCYTES Negative Normal NEGATIVE [facility] Comment on above: Performed By: #### U AMIC ####[facility] Sclvepjhjg49[address] [place] [address]Dr. Grace Abdul MUCOUS NONE SEEN Normal NONE SEEN [facility] Comment on above: Performed By: #### U AMIC ####[facility] Yfjgkzjpat3163 [place] [address]Dr. Grace Abdul Nitrite Ql (U) Negative Normal NEGATIVE [facility] Comment on above: Performed By: #### U AMIC ####[facility] [address]oldb[address] [place], [place] [address]Dr. Grace Abdul pH (U) 7.5 [pH] Normal 5-9 [facility] Comment on above: Performed By: #### U AMIC ####[facility] Hyqylevytj0[address] [place] [address]Dr. Grace Abdul RBC 0-2 Normal 0-2 [facility] Comment on above: Performed By: #### U AMIC ####[facility] Hncdogzjcp7892 [place] [address]DrLisette Abdul SPEC GRAVITY 1.010 Normal 1.005-<=1.025 [facility] Comment on above: Performed By: #### U AMIC ####[facility] Tfdbhfilik[address] [place], [place] [address]Dr. Grace Abdul UA PROTEIN Negative Normal NEGATIVE/ TRACE [facility] Comment on above: Performed By: #### U AMIC ####[facility] Acxzlhfhfm9[address] [place] [address]Dr. Grace Abdul Urobilinogen Qn (U) 0.2 {Ashley'U}/dL Normal 0.2 - 1. 0 [facility] Comment on above: Performed By: #### U AMIC ####[facility] [address]wy[address]wkn[address] [place], [place] [address]DrLisette Abdul WBC NONE SEEN Normal NONE SEEN [facility] Comment on above: Performed By: #### U AMIC ####[facility] Xrfmwvbgnu[address] [place], [place] [address]DrLisette Abdul CBC AUTO DIFFon 11-23-2021 BASO # 0.0 103/ul Normal 0.0-0.1 [facility] Comment on above: Performed By: #### C BC #### [facility] [address] [place] [address] Dr. Grace Abdul Basophils/100 WBC (Bld) 0.4 % Normal 0.2-2.0 [facility] Comment on above: Performed By: #### C BC #### [facility] [address] [place] [address] Dr. Grace Abdul EO # 0.1 103/ul Normal 0.0-0.7 [facility] Comment on above: Performed By: #### C BC #### [facility] [address] [place] [address] Dr. Grace Abdul Eosinophils/100 WBC (Bld) 1.5 % Normal 0.9-7.0 [facility] Comment on above: Performed By: #### C BC #### [facility] [address] [place] [address] Dr. Grace Abdul Erythrocyte distribution width (RBC) [Ratio] 13.2 % Normal 11.0-15.0 [facility] Comment on above: Performed By: #### C BC #### [facility] [address] [place] [address] Dr. Grace Abdul Hematocrit (Bld) [Volume fraction] 31.9 % Critically low 36.0-48.0 [facility] Comment on above: Performed By: #### C BC #### [facility] [address] [place] [address] Dr. Grace Abdul Hemoglobin (Bld) [Mass/Vol] 10.5 g/dL Critically low 12.0-16.0 [facility] Comment on above: Performed By: #### C BC #### [facility] [address] [place] [address] Dr. Grace Abdul IG # 0.01 10e3/ul Normal 0.00-0.03 [facility] Comment on above: Performed By: #### C BC #### [facility] [address] [place] [address] Dr. Grace Abdul IG % 0.2 % Normal 0.0-0.5 [facility] Comment on above: Performed By: #### C BC #### [facility] [address] [place] [address] Dr. Grace Abdul LYMPH # 0.7 103/ul Critically low 1.2-3.8 [facility] Comment on above: Performed By: #### C BC #### [facility] [address] [place] [address] Dr. Grace Abdul Lymphocytes/100 WBC (Bld) 14.8 % Critically low 20.5-60.0 [facility] Comment on above: Performed By: #### C BC #### [facility] [address] [place] [address] Dr. Grace Abdul MANUAL DIFF REQ NO Normal [facility] Comment on above: Performed By: #### C BC #### [facility] [address] [place] [address] Dr. Grace Abdul MCH (RBC) [Entitic mass] 31.4 pg Normal 26.7-34.0 [facility] Comment on above: Performed By: #### C BC #### [facility] [address] [place] [address] Dr. Grace Abdul MCHC (RBC) [Mass/Vol] 32.9 g/dL Normal 29.9-35.2 [facility] Comment on above: Performed By: #### C BC #### [facility] [address] [place] [address] Dr. Grace Abdul MCV (RBC) [Entitic vol] 95.5 fL Normal 81.0-99.0 [facility] Comment on above: Performed By: #### C BC #### [facility] [address] [place] [address] Dr. Grace Abdul MONO # 0.6 103/ul Normal 0.3-0.8 [facility] Comment on above: Performed By: #### C BC #### [facility] [address] [place] [address] Dr. Grace Abdul Monocytes/100 WBC (Bld) 13.4 % Critically high 1.7-12.0 [facility] Comment on above: Performed By: #### C BC #### [facility] [address] [place] [address] Dr. Grace Abdul NEUT # 3.3 103/ul Normal 1.4-6.5 [facility] Comment on above: Performed By: #### C BC #### [facility] [address] [place] [address] Dr. Grace Abdul Neutrophils/100 WBC (Bld) 69.7 % Normal 43.0-75.0 [facility] Comment on above: Performed By: #### C BC #### [facility] [address] [place] [address] Dr. Grace Abdul Platelet mean volume (Bld) [Entitic vol] 9.1 fL Critically low 9.5-13.5 [facility] Comment on above: Performed By: #### C BC #### [facility] [address] [address] [address] Grace Abdul PLT 335 103/ul Normal 150-450 [facility] Comment on above: Performed By: #### C BC #### [facility] [address] [address] [address] Grace Abdul RBC 3.34 106/ul Critically low 4.20-5.40 [facility] Comment on above: Performed By: #### C BC #### [facility] [address] [address] [address] Grace Abdul WBC 4.8 103/ul Normal 4.0-11.0 [facility] Comment on above: Performed By: #### C BC #### [facility] [address] [address] [address] Grace Abdul FREE THYROXINE INDEX T7on FTI 1.15 Critically low 1.30-4.50 [facility] Comment on above: Performed By: #### T 7, CMP, TSH ####[facility] [address] [place] [id number]. Grace Abdul T3U 31.0 % Normal 30.0-39.0 [facility] Comment on above: Performed By: #### T 7, CMP, TSH ####[facility] [address] [place] [id number]. Grace Abdul T4 [Mass/Vol] 3.70 ug/dL Critically low 4.80-13.90 [facility] Comment on above: Performed By: #### T 7, CMP, TSH ####[facility] [address] [place] [id number]. Grace Abdul IRONon 11-23-2021 Iron [Mass/Vol] 52.0 ug/dL Normal 50.0-170.0 [facility] Comment on above: Performed By: #### C VDTBH #### [facility] [address] [address] [address] Graec Abdul PROF 14(COMP METB)on 022 Albumin [Mass/Vol] 3.5 g/dL Normal 3.4-5.0 [facility] Comment on above: Performed By: #### T 7, CMP, TSH ####[facility] [address] [place] [address]Dr. Grace Abdul Albumin/Globulin [Mass ratio] 1.1 {ratio} Normal [facility] Comment on above: Performed By: #### T 7, CMP, TSH ####[facility] [address] [place] [address]Dr. Grace Abdul ALP [Catalytic activity/Vol] 69 U/L Normal 46-116 [facility] Comment on above: Performed By: #### T 7, CMP, TSH ####[facility] [address] [place] [address]Dr. Grace Abdul ALT [Catalytic activity/Vol] 51 U/L Normal 14-59 [facility] Comment on above: Performed By: #### T 7, CMP, TSH ####[facility] [address] [place] [address]Dr. Grace Abdul Anion gap [Moles/Vol] 11.5 mmol/L Normal [facility] Comment on above: Performed By: #### T 7, CMP, TSH ####[facility] [address] [place] [address]Dr. Grace Abdul AST [Catalytic activity/Vol] 24 U/L Normal 15-37 [facility] Comment on above: Performed By: #### T 7, CMP, TSH ####[facility] [address] [place] [address]Dr. Grace Abdul Bilirubin [Mass/Vol] 0.2 mg/dL Normal 0.2-1.0 [facility] Comment on above: Performed By: #### T 7, CMP, TSH ####[facility] [address] [place] [address]Dr. Grace Abdul Calcium [Mass/Vol] 9.3 mg/dL Normal 8.5-10.1 [facility] Comment on above: Performed By: #### T 7, CMP, TSH ####[facility] [address] [place] [address]Dr. Grace Abdul Chloride [Moles/Vol] 98 mmol/L Normal 98-107 [facility] Comment on above: Performed By: #### T 7, CMP, TSH ####[facility] [address] [place] [address]Dr. Grace Abdul CO2 [Moles/Vol] 28.7 mmol/L Normal 21.0-32.0 [facility] Comment on above: Performed By: #### T 7, CMP, TSH ####[facility] [address] [place] [address]Dr. Grace Franko Creatinine [Mass/Vol] 1.11 mg/dL Critically high 0.55-1.02 [facility] Comment on above: Performed By: #### T 7, CMP, TSH ####[facility] [address] [place] [address]Dr. Grace Franko EGFR-AF [place] 57 mL/min/1.73m2 Critically low >=60 [facility] Comment on above: Performed By: #### T 7, CMP, TSH ####[facility] [address] [place], [place] [address]Dr. Grace Franko EGFR-NON AF [place] 47 mL/min/1.73m2 Critically low >=60 [facility] Comment on above: Performed By: #### T 7, CMP, TSH ####[facility] [address] [place] [address]Dr. Grace Franko Globulin (S) [Mass/Vol] 3.3 g/dL Normal [facility] Comment on above: Performed By: #### T 7, CMP, TSH ####[facility] [address] [place] [address]Dr. Grace Franko Glucose [Mass/Vol] 88 mg/dL Normal 74-106 [facility] Comment on above: Performed By: #### T 7, CMP, TSH ####[facility] [address] [place] [address]Dr. Grace Abdul Potassium [Moles/Vol] 4.2 mmol/L Normal 3.5-5.1 [facility] Comment on above: Performed By: #### T 7, CMP, TSH ####[facility] [address] [place] [address]Dr. Grace Abdul Protein [Mass/Vol] 6.8 g/dL Normal 6.4-8.2 [facility] Comment on above: Performed By: #### T 7, CMP, TSH ####[facility] [address] [place] [phone]. Grace Abdul Sodium [Moles/Vol] 134 mmol/L Critically low 136-145 [facility] Comment on above: Performed By: #### T 7, CMP, TSH ####[facility] [address] [place] [address]Dr. Grace Abdul Urea nitrogen [Mass/Vol] 33.0 mg/dL Critically high 7.0-18.0 [facility] Comment on above: Performed By: #### T 7, CMP, TSH ####[facility] [address] [place] [phone]. Grace Abdul Urea nitrogen/Creatinine [Mass ratio] 29.7 mg/mg Normal [facility] Comment on above: Performed By: #### T 7, CMP, TSH ####[facility] [address] [place] [phone] Abdul TSHon 11-23-2021 TSH 0.469 uIU/mL Normal 0.358-3.740 [facility] Comment on above: Performed By: #### T 7, CMP, TSH ####[facility] [address] [place] [id number]. Grace Abdul CBC AUTO DIFFon 11-17-2021 BASO # 0.0 103/ul Normal 0.0-0.1 [facility] Comment on above: Performed By: #### C VDTBH #### [facility] [address] [place], [place] [address] Dr. Grace Abdul Basophils/100 WBC (Bld) 0.2 % Normal 0.2-2.0 [facility] Comment on above: Performed By: #### C VDTBH #### [facility] [address] [place] [address] Dr. Grace Abdul EO # 0.1 103/ul Normal 0.0-0.7 [facility] Comment on above: Performed By: #### C VDTBH #### [facility] [address] [place] [address] Dr. Grace Abdul Eosinophils/100 WBC (Bld) 0.9 % Normal 0.9-7.0 [facility] Comment on above: Performed By: #### C VDTBH #### [facility] [address] [place] [address] Dr. Grace Abdul Erythrocyte distribution width (RBC) [Ratio] 12.8 % Normal 11.0-15.0 [facility] Comment on above: Performed By: #### C VDTBH #### [facility] [address] [place] [address] Dr. Grace Abdul Hematocrit (Bld) [Volume fraction] 35.2 % Critically low 36.0-48.0 [facility] Comment on above: Performed By: #### C VDTBH #### [facility] [address] [place] [address] Dr. Grace Abdul Hemoglobin (Bld) [Mass/Vol] 12.1 g/dL Normal 12.0-16.0 [facility] Comment on above: Performed By: #### C VDTBH #### [facility] [address] [place] [address] Dr. Grace Abdul IG # 0.05 10e3/ul Critically high 0.00-0.03 [facility] Comment on above: Performed By: #### C VDTBH #### [facility] [address] [place] [address] Dr. Grace Abdul IG % 0.6 % Critically high 0.0-0.5 [facility] Comment on above: Performed By: #### C VDTBH #### [facility] [address] [place] [address] Dr. Grace Abdul LYMPH # 0.6 103/ul Critically low 1.2-3.8 [facility] Comment on above: Performed By: #### C VDTBH #### [facility] [address] [place] [address] Dr. Grace Abdul Lymphocytes/100 WBC (Bld) 7.4 % Critically low 20.5-60.0 [facility] Comment on above: Performed By: #### C VDTBH #### [facility] [address] [place] [address] Dr. Grace Abdul MANUAL DIFF REQ NO Normal [facility] Comment on above: Performed By: #### C VDTBH #### [facility] [address] [place] [address] Dr. Grace Abdul MCH (RBC) [Entitic mass] 31.5 pg Normal 26.7-34.0 [facility] Comment on above: Performed By: #### C VDTBH #### [facility] [address] [place] [address] Dr. Grace Abdul MCHC (RBC) [Mass/Vol] 34.4 g/dL Normal 29.9-35.2 [facility] Comment on above: Performed By: #### C VDTBH #### [facility] [address] [place] [address] Dr. Grace Abdul MCV (RBC) [Entitic vol] 91.7 fL Normal 81.0-99.0 [facility] Comment on above: Performed By: #### C VDTBH #### [facility] [address] [place] [address] Dr. Grace Abdul MONO # 1.0 103/ul Critically high 0.3-0.8 [facility] Comment on above: Performed By: #### C VDTBH #### [facility] [address] [place] [address] Dr. Grace Abdul Monocytes/100 WBC (Bld) 12.1 % Critically high 1.7-12.0 [facility] Comment on above: Performed By: #### C VDTBH #### [facility] [address] [place], [place] [id number] Dr. Grace Abdul NEUT # 6.3 103/ul Normal 1.4-6.5 [facility] Comment on above: Performed By: #### C VDTBH #### [facility] [address] [place] [address] Dr. Grace Abdul Neutrophils/100 WBC (Bld) 78.8 % Critically high 43.0-75.0 [facility] Comment on above: Performed By: #### C VDTBH #### [facility] [address] [place] [address] Dr. Grace Abdul Platelet mean volume (Bld) [Entitic vol] 9.1 fL Critically low 9.5-13.5 [facility] Comment on above: Performed By: #### C VDTBH #### [facility] [address] [place] [address] Dr. Grace Abdul PLT 281 103/ul Normal 150-450 [facility] Comment on above: Performed By: #### C VDTBH #### [facility] [address] [place] [address] Dr. Grace Abdul RBC 3.84 106/ul Critically low 4.20-5.40 [facility] Comment on above: Performed By: #### C VDTBH #### [facility] [address] [place] [address] Dr. Grace Abdul WBC 8.0 103/ul Normal 4.0-11.0 [facility] Comment on above: Performed By: #### C VDTBH #### [facility] [address] [place] [address] Dr. Grace Abdul MAGNESIUMon 11-17-2021 Magnesium [Mass/Vol] 1.9 mg/dL Normal 1.8-2.4 [facility] Comment on above: Performed By: #### C VDTBH #### [facility] [address] [place] [address] Dr. Grace Abdul PROF CHEM 8 (BAS METB)on Anion gap [Moles/Vol] 13.9 mmol/L Normal [facility] Comment on above: Performed By: #### C VDTBH #### [facility] [address] [address] [address] Grace Abdul Calcium [Mass/Vol] 8.7 mg/dL Normal 8.5-10.1 [facility] Comment on above: Performed By: #### C VDTBH #### [facility] [address] [place] [address] Dr. Grace Abdul Chloride [Moles/Vol] 101 mmol/L Normal 98-107 [facility] Comment on above: Performed By: #### C VDTBH #### [facility] [address] [place] [address] Dr. Grace Abdul CO2 [Moles/Vol] 24.3 mmol/L Normal 21.0-32.0 [facility] Comment on above: Performed By: #### C VDTBH #### [facility] [address] [place] [address] Dr. Grace Abdul Creatinine [Mass/Vol] 0.89 mg/dL Normal 0.55-1.02 [facility] Comment on above: Performed By: #### C VDTBH #### [facility] [address] [place] [address] Dr. Grace Abdul EGFR-AF [place] >60 Normal >=60 [facility] Comment on above: Performed By: #### C VDTBH #### [facility] [address] [place] [address] Dr. Grace Abdul EGFR-NON AF [place] >60 Normal >=60 [facility] Comment on above: Performed By: #### C VDTBH #### [facility] [address] [place] [address] Dr. Grace Abdul Glucose [Mass/Vol] 97 mg/dL Normal 74-106 [facility] Comment on above: Performed By: #### C VDTBH #### [facility] [address] [place] [address] Dr. Grace Abdul Potassium [Moles/Vol] 3.2 mmol/L Critically low 3.5-5.1 [facility] Comment on above: Performed By: #### C VDTBH #### [facility] [address] [place] [address] [address] Grace Abdul Sodium [Moles/Vol] 136 mmol/L Normal 136-145 [facility] Comment on above: Performed By: #### C VDTBH #### [facility] [address] [place] [address] Dr. Grace Abdul Urea nitrogen [Mass/Vol] 14.0 mg/dL Normal 7.0-18.0 [facility] Comment on above: Performed By: #### C VDTBH #### [facility] [address] [place] [address] Dr. Grace Abdul Urea nitrogen/Creatinine [Mass ratio] 15.7 mg/mg Normal [facility] Comment on above: Performed By: #### C VDTBH #### [facility] [address] [place] [address] Dr. Grace Abdul CBC AUTO DIFFon 11-16-2021 BASO # 0.0 103/ul Normal 0.0-0.1 [facility] Comment on above: Performed By: #### B MP #### [facility] [address] [place] [address] Dr. Grace Abdul Basophils/100 WBC (Bld) 0.2 % Normal 0.2-2.0 [facility] Comment on above: Performed By: #### B MP #### [facility] [address] [place] [address] Dr. Grace Abdul EO # 0.0 103/ul Normal 0.0-0.7 [facility] Comment on above: Performed By: #### B MP #### [facility] [address] [place] [address] Dr. Grace Abdul Eosinophils/100 WBC (Bld) 0.5 % Critically low 0.9-7.0 [facility] Comment on above: Performed By: #### B MP #### [facility] [address] [place] [address] Dr. Grace Abdul Erythrocyte distribution width (RBC) [Ratio] 12.4 % Normal 11.0-15.0 [facility] Comment on above: Performed By: #### B MP #### [facility] [address] [place] [address] [address] Grace Abdul Hematocrit (Bld) [Volume fraction] 33.6 % Critically low 36.0-48.0 [facility] Comment on above: Performed By: #### B MP #### [facility] [address] [address] [address] Grace Abdul Hemoglobin (Bld) [Mass/Vol] 11.8 g/dL Critically low 12.0-16.0 [facility] Comment on above: Performed By: #### B MP #### [facility] [address] [address] [address] Grace Abdul IG # 0.04 10e3/ul Critically high 0.00-0.03 [facility] Comment on above: Performed By: #### B MP #### [facility] [address] [place] [address] [address] Grace Abdul IG % 0.7 % Critically high 0.0-0.5 [facility] Comment on above: Performed By: #### B MP #### [facility] [address] [address] [address] Grace Abdul LYMPH # 0.7 103/ul Critically low 1.2-3.8 [facility] Comment on above: Performed By: #### B MP #### [facility] [address] [address] [address] Grace Abdul Lymphocytes/100 WBC (Bld) 11.1 % Critically low 20.5-60.0 [facility] Comment on above: Performed By: #### B MP #### [facility] [address] [address] [address] Grace Abdul MANUAL DIFF REQ NO Normal [facility] Comment on above: Performed By: #### B MP #### [facility] [address] [place] [address] Dr. Grace Abdul MCH (RBC) [Entitic mass] 31.5 pg Normal 26.7-34.0 [facility] Comment on above: Performed By: #### B MP #### [facility] [address] [address] [address] Grace Abdul MCHC (RBC) [Mass/Vol] 35.1 g/dL Normal 29.9-35.2 [facility] Comment on above: Performed By: #### B MP #### [facility] [address] [address] [address] Grace Abdul MCV (RBC) [Entitic vol] 89.6 fL Normal 81.0-99.0 [facility] Comment on above: Performed By: #### B MP #### [facility] [address] [address] [address] Grace Abdul MONO # 0.9 103/ul Critically high 0.3-0.8 [facility] Comment on above: Performed By: #### B MP #### [facility] [address] [place] [address] Dr. Grace Abdul Monocytes/100 WBC (Bld) 14.0 % Critically high 1.7-12.0 [facility] Comment on above: Performed By: #### B MP #### [facility] [address] [address] [address] Grace Abdul NEUT # 4.5 103/ul Normal 1.4-6.5 [facility] Comment on above: Performed By: #### B MP #### [facility] [address] [address] [address] Grace Abdul Neutrophils/100 WBC (Bld) 73.5 % Normal 43.0-75.0 [facility] Comment on above: Performed By: #### B MP #### [facility] [address] [address] [address] Grace Abdul Platelet mean volume (Bld) [Entitic vol] 9.3 fL Critically low 9.5-13.5 [facility] Comment on above: Performed By: #### B MP #### [facility] [address] [address] [address] Grace Abdul PLT 292 103/ul Normal 150-450 [facility] Comment on above: Performed By: #### B MP #### [facility] [address] [address] [address] Grace Abdul RBC 3.75 106/ul Critically low 4.20-5.40 [facility] Comment on above: Performed By: #### B MP #### [facility] [address] [address] [address] Grace Abdul WBC 6.1 103/ul Normal 4.0-11.0 [facility] Comment on above: Performed By: #### B MP #### [facility] [address] [place] [address] Dr. Grace Abdul CULTURE URINEon 11-16-2021 CULTURE URINE Culture Observations : LIGHT GROWTH OF MIXED GENITAL ALANIS. NO POTENTIAL PATHOGENS SEEN. Normal [facility] Comment on above: Performed By: #### U RCX ####[facility] [address] [place] [address]Dr. Grace Abdul ER URINE PROFILEon 2 Bilirubin Ql (U) Negative Normal NEGATIVE [facility] Comment on above: Performed By: #### C VDTBH #### [facility] [address] [place] [address] Dr. Grace Abdul Clarity (U) CLEAR Normal CLEAR [facility] Comment on above: Performed By: #### C VDTBH #### [facility] [address] [place] [address] Dr. Grace Abdul Color (U) LT. YELLOW Normal YELLOW [facility] Comment on above: Performed By: #### C VDTBH #### [facility] [address] [place] [address] Dr. Grace Abdul ERUWALTER A micrscopic examination will be performed if indicated. Normal [facility] Comment on above: Performed By: #### C VDTBH #### [facility] [address] [place] [address] Dr. Grace Abdul Glucose Ql (U) Negative Normal NEGATIVE [facility] Comment on above: Performed By: #### C VDTBH #### [facility] [address] [place] [address] Dr. Grace Abdul Hemoglobin Ql (U) SMALL Abnormal NEGATIVE [facility] Comment on above: Performed By: #### C VDTBH #### [facility] [address] [place] [address] Dr. Grace Abdul Ketones Ql (U) 40 mg/dl Abnormal NEGATIVE [facility] Comment on above: Performed By: #### C VDTBH #### [facility] [address] [place] [address] Dr. Grace Abdul LEUKOCYTES SMALL Abnormal NEGATIVE [facility] Comment on above: Performed By: #### C VDTBH #### [facility] [address] [place] [address] Dr. Grace Abdul Nitrite Ql (U) Negative Normal NEGATIVE [facility] Comment on above: Performed By: #### C VDTBH #### [facility] [address] [place] [address] Dr. Grace Abdul pH (U) 7.0 [pH] Normal 5-9 [facility] Comment on above: Performed By: #### C VDTBH #### [facility] [address] [place] [address] Dr. Grace Abdul SPEC GRAVITY 1.010 Normal 1.005-<=1.025 [facility] Comment on above: Performed By: #### C VDTBH #### [facility] [address] [place] [address] Dr. Grace Abdul UA PROTEIN Negative Normal NEGATIVE/ TRACE [facility] Comment on above: Performed By: #### C VDTBH #### [facility] [address] [place] [address] Dr. Grace Abdul UR MICRO IND INDICATED Normal [facility] Comment on above: Performed By: #### C VDTBH #### [facility] [address] [place] [address] Dr. Grace Abdul Urobilinogen Qn (U) 0.2 {Ashley'U}/dL Normal 0.2 - 1. 0 [facility] Comment on above: Performed By: #### C VDTBH #### [facility] [address] [place] [address] Dr. Grace Abdul MAGNESIUMon 11-16-2021 Magnesium [Mass/Vol] 1.8 mg/dL Normal 1.8-2.4 [facility] Comment on above: Performed By: #### C VDTB #### [facility] [address] [place] [address] Dr. Grace Abdul PROF CHEM 8 (BAS METB)on Anion gap [Moles/Vol] 12.7 mmol/L Normal [facility] Comment on above: Performed By: #### B MP #### [facility] [address] [address] [address] Grace Abdul Calcium [Mass/Vol] 8.3 mg/dL Critically low 8.5-10.1 Th [facility] Comment on above: Performed By: #### B MP #### [facility] [address] [place] [address] Dr. Grace Abdul CO2 [Moles/Vol] 24.4 mmol/L Normal 21.0-32.0 [facility] Comment on above: Performed By: #### B MP #### [facility] [address] [place] [address] Dr. Grace Abdul Creatinine [Mass/Vol] 1.16 mg/dL Critically high 0.55-1.02 [facility] Comment on above: Performed By: #### B MP #### [facility] [address] [place] [address] Dr. Grace Abdul EGFR-AF [place] 54 mL/min/1.73m2 Critically low >=60 [facility] Comment on above: Performed By: #### B MP #### [facility] [address] [address] [address] Grace Abdul EGFR-NON AF [place] 45 mL/min/1.73m2 Critically low >=60 [facility] Comment on above: Performed By: #### B MP #### [facility] [address] [place] [address] Dr. Grace Abdul Glucose [Mass/Vol] 116 mg/dL Critically high 74-106 T [facility] Comment on above: Performed By: #### B MP #### [facility] [address] [address] [address] Grace Abdul Urea nitrogen [Mass/Vol] 20.0 mg/dL Critically high 7.0-18.0 [facility] Comment on above: Performed By: #### B MP #### [facility] [address] [address] [address] Grace Abdul Urea nitrogen/Creatinine [Mass ratio] 17.2 mg/mg Normal [facility] Comment on above: Performed By: #### B MP #### [facility] [address] [address] [address] Grace Abdul Anion gap [Moles/Vol] 10.0 mmol/L Normal [facility] Comment on above: Performed By: #### B MP #### [facility] [address] [address] [address] Grace Abdul Calcium [Mass/Vol] 8.8 mg/dL Normal 8.5-10.1 [facility] Comment on above: Performed By: #### B MP #### [facility] [address] [address] [address] Grace Abdul Chloride [Moles/Vol] 96 mmol/L Critically low 98-107 [facility] Comment on above: Performed By: #### B MP #### [facility] [address] [address] [address] Grace Abdul CO2 [Moles/Vol] 26.1 mmol/L Normal 21.0-32.0 [facility] Comment on above: Performed By: #### B MP #### [facility] [address] [address] [address] Grace Abdul Creatinine [Mass/Vol] 1.11 mg/dL Critically high 0.55-1.02 [facility] Comment on above: Performed By: #### B MP #### [facility] [address] [address] [address] Grace Abdul EGFR-AF [place] 57 mL/min/1.73m2 Critically low >=60 [facility] Comment on above: Performed By: #### B MP #### [facility] [address] [address] [address] Grace Abdul EGFR-NON AF [place] 47 mL/min/1.73m2 Critically low >=60 [facility] Comment on above: Performed By: #### B MP #### [facility] [address] [address] [address] Grace Abdul Glucose [Mass/Vol] 94 mg/dL Normal 74-106 [facility] Comment on above: Performed By: #### B MP #### [facility] [address] [address] [address] Grace Abdul Potassium [Moles/Vol] 3.1 mmol/L Critically low 3.5-5.1 [facility] Comment on above: Performed By: #### B MP #### [facility] [address] [place] [address] Dr. Grace Abdul Performed By: #### C VDTBH #### [facility] [address] [place] [address] Dr. Grace Abdul Sodium [Moles/Vol] 129 mmol/L Critically low 136-145 Th [facility] Comment on above: Performed By: #### B MP #### [facility] [address] [place] [address] Dr. Grace Abdul Urea nitrogen [Mass/Vol] 16.0 mg/dL Normal 7.0-18.0 [facility] Comment on above: Performed By: #### B MP #### [facility] [address] [address] [address] Grace Abdul Urea nitrogen/Creatinine [Mass ratio] 14.4 mg/mg Normal [facility] Comment on above: Performed By: #### B MP #### [facility] [address] [address] [address] Grace Abdul Anion gap [Moles/Vol] 12.6 mmol/L [facility] Comment on above: Performed By: #### C VDTBH #### [facility] [address] [address] [address] Grace Abdul Calcium [Mass/Vol] 8.6 mg/dL Normal 8.5-10.1 [facility] Comment on above: Performed By: #### C VDTBH #### [facility] [address] [address] [address] Grace Abdul Chloride [Moles/Vol] 95 mmol/L Critically low 98-107 [facility] Comment on above: Performed By: #### B MP #### [facility] [address] [place] [address] Dr. Grace Abdul Performed By: #### C VDTBH #### [facility] [address] [place] [address] Dr. Grace Abdul CO2 [Moles/Vol] 22.5 mmol/L Normal 21.0-32.0 [facility] Comment on above: Performed By: #### C VDTBH #### [facility] [address] [place] [address] Dr. Grace Abdul Creatinine [Mass/Vol] 0.95 mg/dL Normal 0.55-1.02 [facility] Comment on above: Performed By: #### C VDTBH #### [facility] [address] [place] [address] Dr. Grace Abdul EGFR-AF [place] >60 Normal >=60 [facility] Comment on above: Performed By: #### C VDTBH #### [facility] [address] [place] [address] Dr. Grace Abdul EGFR-NON AF [place] 56 mL/min/1.73m2 Critically low >=60 [facility] Comment on above: Performed By: #### C VDTBH #### [facility] [address] [place] [address] Dr. Grace Abdul Glucose [Mass/Vol] 92 mg/dL Normal 74-106 [facility] Comment on above: Performed By: #### C VDTBH #### [facility] [address] [place] [address] Dr. Grace Abdul Sodium [Moles/Vol] 127 mmol/L Critically low 136-145 Th [facility] Comment on above: Performed By: #### C VDTBH #### [facility] [address] [place] [address] Dr. Grace Abdul Urea nitrogen [Mass/Vol] 18.0 mg/dL Normal 7.0-18.0 [facility] Comment on above: Performed By: #### C VDTBH #### [facility] [address] [place] [address] Dr. Grace Abdul Urea nitrogen/Creatinine [Mass ratio] 18.9 mg/mg Normal [facility] Comment on above: Performed By: #### C VDTBH #### [facility] [address] [place] [address] Dr. Grace Abdul URINE MICROSCOPIC ONLYon BACTERIA TRACE Abnormal NONE SEEN [facility] Comment on above: Performed By: #### C VDTBH #### [facility] [address] [place] [address] Dr. Grace Abdul Bacteria identified Cx Nom (U) INDICATED Normal [facility] Comment on above: Performed By: #### C VDTBH #### [facility] [address] [place] [address] Dr. rGace Abdul CAST NONE SEEN Normal NONE SEEN [facility] Comment on above: Performed By: #### C VDTBH #### [facility] [address] [place] [address] Dr. Grace Abdul Crystals LM Nom (Urine sed) NONE SEEN Normal NONE SEEN [facility] Comment on above: Performed By: #### C VDTBH #### [facility] [address] [place] [address] Dr. Grace Abdul Epithelial cells LM Ql (Urine sed) FEW Abnormal NONE SEEN /RARE [facility] Comment on above: Performed By: #### C VDTBH #### [facility] [address] [place] [address] Dr. Grace Abdul MUCOUS NONE SEEN Normal NONE SEEN [facility] Comment on above: Performed By: #### C VDTBH #### [facility] [address] [place] [address] Dr. Grace Abdul RBC 2-5 Abnormal 0-2 [facility] Comment on above: Performed By: #### C VDTBH #### [facility] [address] [place] [address] Dr. Grace Abdul WBC 5-10 Abnormal NONE SEEN [facility] Comment on above: Performed By: #### C VDTBH #### [facility] [address] [place] [address] Dr. Grace Abdul AMYLASEon 11-15-2021 Amylase [Catalytic activity/Vol] 94 U/L Normal 25-115 [facility] Comment on above: Performed By: #### C VDTBH #### [facility] [address] [place] [address] Dr. Grace Abdul BNPon 11-15-2021 Natriuretic peptide B (Bld) [Mass/Vol] 357.0 pg/mL Normal <=1,800.0 [facility] Comment on above: Performed By: #### C VDTBH #### [facility] [address] [place] [address] Dr. Grace Abdul CARDIAC JOVITA ADMITon 022 CK [Catalytic activity/Vol] 66 U/L Normal 26-192 [facility] Comment on above: Performed By: #### C VDTBH #### [facility] [address] [place] [address] Dr. Grace Abdul CK.MB [Mass/Vol] 2.19 ng/mL Normal <=3.60 [facility] Comment on above: Performed By: #### C VDTBH #### [facility] [address] [place] [address] Dr. Grace Abudl HSTROP 9.5 pg/mL Normal 4.0-51.3 [facility] Comment on above: Result Comment: CUT- OFF POINTS HAVE BEEN ESTABLISHED BASED ON THE FOURTH UNIVERSAL DEFINITIONS OF MYOCARDIAL INFARCTION. THE UPPER REFERENCE LIMIT (URL) OF TROPONIN, DEFINED THE 99TH PERCENTILE OF cTnI DISTRIBUTION IN A REFERENCE POPULATION, HAS BEEN CONFIRMED THE DECISION THRESHOLD FOR AR DIAGNOSIS. Performed By: #### C VDTBH #### [facility] [address] [place] [address] Dr. Grace Abdul JOHNNA 73 ng/mL Normal 9-82 [facility] Comment on above: Performed By: #### C VDTB #### [facility] [address] [address] [address] Grace Abdul CBC AUTO DIFFon 11-15-2021 BASO # 0.0 103/ul Normal 0.0-0.1 [facility] Comment on above: Performed By: #### B MP #### [facility] [address] [address] [address] Grace Abdul Basophils/100 WBC (Bld) 0.1 % Critically low 0.2-2.0 [facility] Comment on above: Performed By: #### B MP #### [facility] [address] [address] [address] Grace Abdul EO # 0.0 103/ul Normal 0.0-0.7 [facility] Comment on above: Performed By: #### B MP #### [facility] [address] [place] [address] Dr. Grace Abdul Eosinophils/100 WBC (Bld) 0.1 % Critically low 0.9-7.0 [facility] Comment on above: Performed By: #### B MP #### [facility] [address] [place] [address] Dr. Grace Abdul Erythrocyte distribution width (RBC) [Ratio] 11.9 % Normal 11.0-15.0 [facility] Comment on above: Performed By: #### B MP #### [facility] [address] [place] [address] Dr. Grace Abdul Hematocrit (Bld) [Volume fraction] 36.6 % Normal 36.0-48.0 [facility] Comment on above: Performed By: #### B MP #### [facility] [address] [address] [address] Grace Abdul Hemoglobin (Bld) [Mass/Vol] 13.2 g/dL Normal 12.0-16.0 [facility] Comment on above: Performed By: #### B MP #### [facility] [address] [address] [address] Grace Abdul IG # 0.05 10e3/ul Critically high 0.00-0.03 [facility] Comment on above: Performed By: #### B MP #### [facility] [address] [address] [address] Grace Abdul IG % 0.7 % Critically high 0.0-0.5 [facility] Comment on above: Performed By: #### B MP #### [facility] [address] [address] [address] Grace Abdul LYMPH # 0.7 103/ul Critically low 1.2-3.8 [facility] Comment on above: Performed By: #### B MP #### [facility] [address] [place] [address] Dr. Grace Abdul Lymphocytes/100 WBC (Bld) 9.8 % Critically low 20.5-60.0 [facility] Comment on above: Performed By: #### B MP #### [facility] [address] [place] [address] Dr. Grace Abdul MANUAL DIFF REQ NO Normal [facility] Comment on above: Performed By: #### B MP #### [facility] [address] [place] [address] Dr. Grace Abdul MCH (RBC) [Entitic mass] 31.5 pg Normal 26.7-34.0 [facility] Comment on above: Performed By: #### B MP #### [facility] [address] [place] [address] Dr. Grace Abdul MCHC (RBC) [Mass/Vol] 36.1 g/dL Critically high 29.9-35.2 [facility] Comment on above: Performed By: #### B MP #### [facility] [address] [place] [address] Dr. Grace Abdul MCV (RBC) [Entitic vol] 87.4 fL Normal 81.0-99.0 [facility] Comment on above: Performed By: #### B MP #### [facility] [address] [place] [address] Dr. Grace Abdul MONO # 0.9 103/ul Critically high 0.3-0.8 [facility] Comment on above: Performed By: #### B MP #### [facility] [address] [address] [address] Grace Abdul Monocytes/100 WBC (Bld) 12.4 % Critically high 1.7-12.0 [facility] Comment on above: Performed By: #### B MP #### [facility] [address] [address] [address] Grace Abdul NEUT # 5.8 103/ul Normal 1.4-6.5 [facility] Comment on above: Performed By: #### B MP #### [facility] [address] [address] [address] Grace Abdul Neutrophils/100 WBC (Bld) 76.9 % Critically high 43.0-75.0 [facility] Comment on above: Performed By: #### B MP #### [facility] [address] [place] [address] Dr. Grace Abdul Platelet mean volume (Bld) [Entitic vol] 9.0 fL Critically low 9.5-13.5 [facility] Comment on above: Performed By: #### B MP #### [facility] [address] [address] [address] Grace Abdul PLT 361 103/ul Normal 150-450 [facility] Comment on above: Performed By: #### B MP #### [facility] [address] [place] [address] Dr. Grace Abdul RBC 4.19 106/ul Critically low 4.20-5.40 [facility] Comment on above: Performed By: #### B MP #### [facility] [address] [address] [address] Grace Abdul WBC 7.6 103/ul Normal 4.0-11.0 [facility] Comment on above: Performed By: #### B MP #### [facility] [address] [place] [address] Dr. Grace Abdul Covid-19 PCR ([facility])on 10-23 SARS-CoV-2 (COVID-19) RNA LUISITO+probe Ql (Unsp spec) Not detected Normal NOT DETECTED [facility] Comment on above: Result Comment: When [...] for this test is supported by the [place] of Health and Human Service's declaration that [...] used). Performed By: #### C VDTBH #### [facility] [address] [place] [address] Dr. Grace Abdul LIPASEon 11-15-2021 Lipase [Catalytic activity/Vol] 178.0 U/L Normal 73.0-393.0 [facility] Comment on above: Performed By: #### C VDTBH #### [facility] [address] [place] [address] Dr. Grace Abdul PROF 14(COMP METB)on 022 Albumin [Mass/Vol] 4.1 g/dL Normal 3.4-5.0 [facility] Comment on above: Performed By: #### C VDTBH #### [facility] [address] [place] [address] Dr. Grace Abdul Albumin/Globulin [Mass ratio] 1.2 {ratio} Normal [facility] Comment on above: Performed By: #### C VDTBH #### [facility] [address] [place] [address] Dr. Grace Abdul ALP [Catalytic activity/Vol] 63 U/L Normal 46-116 [facility] Comment on above: Performed By: #### C VDTBH #### [facility] [address] [address] [address] Grace Abdul ALT [Catalytic activity/Vol] 29 U/L Normal 14-59 [facility] Comment on above: Performed By: #### C VDTBH #### [facility] [address] [address] [address] Grace Abdul Anion gap [Moles/Vol] 14.8 mmol/L Normal [facility] Comment on above: Performed By: #### C VDTBH #### [facility] [address] [address] [address] Grace Abdul AST [Catalytic activity/Vol] 25 U/L Normal 15-37 [facility] Comment on above: Performed By: #### C VDTBH #### [facility] [address] [address] [address] Grace Abdul Bilirubin [Mass/Vol] 0.6 mg/dL Normal 0.2-1.0 [facility] Comment on above: Performed By: #### C VDTBH #### [facility] [address] [address] [address] Grace Abdul Calcium [Mass/Vol] 9.4 mg/dL Normal 8.5-10.1 [facility] Comment on above: Performed By: #### C VDTBH #### [facility] [address] [address] [address] Grace Abdul Chloride [Moles/Vol] 83 mmol/L Critically low 98-107 [facility] Comment on above: Performed By: #### C VDTBH #### [facility] [address] [address] [address] Grace Abdul CO2 [Moles/Vol] 24.4 mmol/L Normal 21.0-32.0 [facility] Comment on above: Performed By: #### C VDTBH #### [facility] [address] [address] [address] Grace Abdul Creatinine [Mass/Vol] 1.15 mg/dL Critically high 0.55-1.02 [facility] Comment on above: Performed By: #### C VDTBH #### [facility] [address] [address] [address] Grace Abdul EGFR-AF [place] 55 mL/min/1.73m2 Critically low >=60 [facility] Comment on above: Performed By: #### C VDTBH #### [facility] [address] [address] [address] Grace Abdul EGFR-NON AF [place] 45 mL/min/1.73m2 Critically low >=60 [facility] Comment on above: Performed By: #### C VDTBH #### [facility] [address] [address] [address] Grace Abdul Globulin (S) [Mass/Vol] 3.4 g/dL Normal [facility] Comment on above: Performed By: #### C VDTBH #### [facility] [address] [place] [address] Dr. Grace Abdul Glucose [Mass/Vol] 147 mg/dL Critically high 74-106 T [facility] Comment on above: Performed By: #### C VDTBH #### [facility] [address] [address] [address] Grace Abdul Potassium [Moles/Vol] 3.2 mmol/L Critically low 3.5-5.1 [facility] Comment on above: Performed By: #### C VDTBH #### [facility] [address] [place] [address] Dr. Grace Abdul Protein [Mass/Vol] 7.5 g/dL Normal 6.4-8.2 [facility] Comment on above: Performed By: #### C VDTBH #### [facility] [address] [address] [address] Grace Abdul Urea nitrogen/Creatinine [Mass ratio] 21.7 mg/mg Normal [facility] Comment on above: Performed By: #### C VDTBH #### [facility] [address] [place] [address] Dr. Grace Abdul PROF CHEM 8 (BAS METB)on Anion gap [Moles/Vol] 13.6 mmol/L Normal [facility] Comment on above: Performed By: #### C VDTBH #### [facility] [address] [address] [address] Grace Abdul Calcium [Mass/Vol] 8.8 mg/dL Normal 8.5-10.1 [facility] Comment on above: Performed By: #### C VDTBH #### [facility] [address] [address] [address] Grace Abdul Chloride [Moles/Vol] 88 mmol/L Critically low 98-107 [facility] Comment on above: Performed By: #### C VDTBH #### [facility] [address] [address] [address] Grace Abdul CO2 [Moles/Vol] 21.8 mmol/L Normal 21.0-32.0 [facility] Comment on above: Performed By: #### C VDTBH #### [facility] [address] [address] [address] Grace Abdul Creatinine [Mass/Vol] 1.11 mg/dL Critically high 0.55-1.02 [facility] Comment on above: Performed By: #### C VDTBH #### [facility] [address] [address] [address] Grace Abdul EGFR-AF [place] 57 mL/min/1.73m2 Critically low >=60 [facility] Comment on above: Performed By: #### C VDTBH #### [facility] [address] [address] [address] Grace Abdul EGFR-NON AF [place] 47 mL/min/1.73m2 Critically low >=60 [facility] Comment on above: Performed By: #### C VDTBH #### [facility] [address] [address] [address] Grace Abdul Glucose [Mass/Vol] 132 mg/dL Critically high 74-106 [facility] Comment on above: Performed By: #### C VDTBH #### [facility] [address] [address] [address] Grace Abdul Potassium [Moles/Vol] 3.4 mmol/L Critically low 3.5-5.1 [facility] Comment on above: Performed By: #### C VDTBH #### [facility] [address] [place] [address] Dr. Grace Abdul Sodium [Moles/Vol] 120 mmol/L Critically low 136-145 Th [facility] Comment on above: Result Comment: Test Repeated. Critical Value Verified Performed By: #### C VDTBH #### [facility] [address] [place] [address] Dr. Grace Abdul Urea nitrogen [Mass/Vol] 25.0 mg/dL Critically high 7.0-18.0 [facility] Comment on above: Performed By: #### C VDTBH #### [facility] [address] [place] [address] Dr. Grace Abdul Urea nitrogen/Creatinine [Mass ratio] 22.5 mg/mg Normal [facility] Comment on above: Performed By: #### C VDTBH #### [facility] [address] [place] [address] Dr. Grace Abdul PROTIMEon 11-15-2021 INR Coag (PPP) [Relative time] 0.94 {INR} Normal [facility] Comment on above: Performed By: #### C VDTBH #### [facility] [address] [place] [address] Dr. Grace Abdul INR GUIDELINES SEE BELOW Normal [facility] Comment on above: Result Comment: DURAN RED INR: 2.0 - 3.0 CONDITIONS NOT LISTED BELOW 2.5 - 3.5 FOR PROSTHETIC HEART VALVE REPLACEMENT 2.5 - 3.5 RECURRENT THROMBOSIS Performed By: #### C VDTBH #### [facility] [address] [place] [address] Dr. Grace Abdul PT Coag (PPP) [Time] 10.2 s Normal 9.0-11.6 [facility] Comment on above: Performed By: #### C VDTBH #### [facility] [address] [place] [address] Dr. Grace Abdul XR ABD FLAT UP_PA [...] JARET LINARES Date: 2021-11-15 13:56 Normal [facility] BNPon 11-11-2021 Natriuretic peptide B (Bld) [Mass/Vol] 546.0 pg/mL Normal <=1,800.0 [facility] Comment on above: Performed By: #### C MP, TSH, HSTROPN, BNP ####[facility] [id number] [address]Dr[address] Grace Abdul CBC AUTO DIFFon 11-11-2021 BASO # 0.0 103/ul Normal 0.0-0.1 [facility] Comment on above: Performed By: #### C BC #### [facility] [address] [address] [address] Grace Abdul Basophils/100 WBC (Bld) 0.3 % Normal 0.2-2.0 [facility] Comment on above: Performed By: #### C BC #### [facility] [address] [address] [address] Grace Abdul EO # 0.0 103/ul Normal 0.0-0.7 [facility] Comment on above: Performed By: #### C BC #### [facility] [address] [address] [address] Grace Abdul Eosinophils/100 WBC (Bld) 0.5 % Critically low 0.9-7.0 [facility] Comment on above: Performed By: #### C BC #### [facility] [address] [address] [address] Grace Abdul Erythrocyte distribution width (RBC) [Ratio] 12.9 % Normal 11.0-15.0 [facility] Comment on above: Performed By: #### C BC #### [facility] [address] [place] [address] Dr. Grace Abdul Hematocrit (Bld) [Volume fraction] 36.1 % Normal 36.0-48.0 [facility] Comment on above: Performed By: #### C BC #### [facility] [address] [place] [address] Dr. Grace Abdul Hemoglobin (Bld) [Mass/Vol] 12.3 g/dL Normal 12.0-16.0 [facility] Comment on above: Performed By: #### C BC #### [facility] [address] [place] [address] Dr. Grace Abdul IG # 0.01 10e3/ul Normal 0.00-0.03 [facility] Comment on above: Performed By: #### C BC #### [facility] [address] [place] [address] Dr. Grace Abdul IG % 0.3 % Normal 0.0-0.5 [facility] Comment on above: Performed By: #### C BC #### [facility] [address] [place] [address] Dr. Grace Abdul LYMPH # 0.6 103/ul Critically low 1.2-3.8 [facility] Comment on above: Performed By: #### C BC #### [facility] [address] [place] [address] Dr. Graec Abdul Lymphocytes/100 WBC (Bld) 14.8 % Critically low 20.5-60.0 [facility] Comment on above: Performed By: #### C BC #### [facility] [address] [place] [address] Dr. Grace Abdul MANUAL DIFF REQ NO Normal [facility] Comment on above: Performed By: #### C BC #### [facility] [address] [place] [address] Dr. Grace Abdul MCH (RBC) [Entitic mass] 31.5 pg Normal 26.7-34.0 [facility] Comment on above: Performed By: #### C BC #### [facility] [address] [address] [address] Grace Abdul MCHC (RBC) [Mass/Vol] 34.1 g/dL Normal 29.9-35.2 [facility] Comment on above: Performed By: #### C BC #### [facility] [address] [address] [address] Grace Abdul MCV (RBC) [Entitic vol] 92.6 fL Normal 81.0-99.0 [facility] Comment on above: Performed By: #### C BC #### [facility] [address] [address] [address] Grace Abdul MONO # 0.5 103/ul Normal 0.3-0.8 [facility] Comment on above: Performed By: #### C BC #### [facility] [address] [address] [address] Grace Abdul Monocytes/100 WBC (Bld) 13.5 % Critically high 1.7-12.0 [facility] Comment on above: Performed By: #### C BC #### [facility] [address] [place] [address] Dr. Grace Abdul NEUT # 2.7 103/ul Normal 1.4-6.5 [facility] Comment on above: Performed By: #### C BC #### [facility] [address] [address] [address] Grace Abdul Neutrophils/100 WBC (Bld) 70.6 % Normal 43.0-75.0 [facility] Comment on above: Performed By: #### C BC #### [facility] [address] [address] [address] Grace Abdul Platelet mean volume (Bld) [Entitic vol] 9.2 fL Critically low 9.5-13.5 [facility] Comment on above: Performed By: #### C BC #### [facility] [address] [address] [address] Grace Abdul PLT 279 103/ul Normal 150-450 [facility] Comment on above: Performed By: #### C BC #### [facility] [address] [address] [address] Grace Abdul RBC 3.90 106/ul Critically low 4.20-5.40 [facility] Comment on above: Performed By: #### C BC #### [facility] [address] [address] [address] Grace Abdul WBC 3.9 103/ul Critically low 4.0-11.0 [facility] Comment on above: Performed By: #### C BC #### [facility] [address] [place] [address] Dr. Grace Abdul PROF 14(COMP METB)on 022 Albumin [Mass/Vol] 3.3 g/dL Critically low 3.4-5.0 [facility] Comment on above: Performed By: #### C MP, TSH, HSTROPN, BNP #### [facility] [address] [place] [address] Dr. Grace Abdul Albumin/Globulin [Mass ratio] 1.2 {ratio} Normal [facility] Comment on above: Performed By: #### C MP, TSH, HSTROPN, BNP #### [facility] [address] [place] [address] Dr. Grace Abdul ALP [Catalytic activity/Vol] 60 U/L Normal 46-116 [facility] Comment on above: Performed By: #### C MP, TSH, HSTROPN, BNP #### [facility] [address] [place] [address] Dr. Grace Abdul ALT [Catalytic activity/Vol] 26 U/L Normal 14-59 [facility] Comment on above: Performed By: #### C MP, TSH, HSTROPN, BNP #### [facility] [address] [place] [address] Dr. Grace Abdul Anion gap [Moles/Vol] 14.8 mmol/L Normal [facility] Comment on above: Performed By: #### C MP, TSH, HSTROPN, BNP #### [facility] [address] [place], [place] [id number] Dr. Grace Abdul AST [Catalytic activity/Vol] 20 U/L Normal 15-37 [facility] Comment on above: Performed By: #### C MP, TSH, HSTROPN, BNP #### [facility] [address] [place] [address] Dr. Grace Abdul Bilirubin [Mass/Vol] 0.3 mg/dL Normal 0.2-1.0 [facility] Comment on above: Performed By: #### C MP, TSH, HSTROPN, BNP #### [facility] [address] [place] [address] Dr. Grace Abdul Calcium [Mass/Vol] 8.2 mg/dL Critically low 8.5-10.1 [facility] Comment on above: Performed By: #### C MP, TSH, HSTROPN, BNP #### [facility] [address] [place] [address] Dr. Grace Abdul Chloride [Moles/Vol] 100 mmol/L Normal 98-107 [facility] Comment on above: Performed By: #### C MP, TSH, HSTROPN, BNP #### [facility] [address] [place] [address] Dr. Grace Abdul CO2 [Moles/Vol] 23.8 mmol/L Normal 21.0-32.0 [facility] Comment on above: Performed By: #### C MP, TSH, HSTROPN, BNP #### [facility] [address] [place] [address] Dr. Grace Abdul Creatinine [Mass/Vol] 1.27 mg/dL Critically high 0.55-1.02 [facility] Comment on above: Performed By: #### C MP, TSH, HSTROPN, BNP #### [facility] [address] [place] [address] Dr. Grace Abdul EGFR-AF [place] 49 mL/min/1.73m2 Critically low >=60 [facility] Comment on above: Performed By: #### C MP, TSH, HSTROPN, BNP #### [facility] [address] [place] [address] Dr. Grace Abdul EGFR-NON AF [place] 40 mL/min/1.73m2 Critically low >=60 [facility] Comment on above: Performed By: #### C MP, TSH, HSTROPN, BNP #### [facility] [address] [place] [address] Dr. Grace Abdul Globulin (S) [Mass/Vol] 2.7 g/dL Normal [facility] Comment on above: Performed By: #### C MP, TSH, HSTROPN, BNP #### [facility] [address] [place] [address] Dr. Grace Abdul Glucose [Mass/Vol] 116 mg/dL Critically high 74-106 T [facility] Comment on above: Performed By: #### C MP, TSH, HSTROPN, BNP #### [facility] [address] [place] [address] Dr. Grace Abdul Potassium [Moles/Vol] 3.6 mmol/L Normal 3.5-5.1 [facility] Comment on above: Performed By: #### C MP, TSH, HSTROPN, BNP #### [facility] [address] [place] [address] Dr. Grace Abdul Protein [Mass/Vol] 6.0 g/dL Critically low 6.4-8.2 Th [facility] Comment on above: Performed By: #### C MP, TSH, HSTROPN, BNP #### [facility] [address] [place] [address] Dr. Grace Abdul Sodium [Moles/Vol] 135 mmol/L Critically low 136-145 Th [facility] Comment on above: Performed By: #### C MP, TSH, HSTROPN, BNP #### [facility] [address] [place] [address] Dr. Grace Abdul Urea nitrogen [Mass/Vol] 25.0 mg/dL Critically high 7.0-18.0 [facility] Comment on above: Performed By: #### C MP, TSH, HSTROPN, BNP #### [facility] [address] [place] [address] Dr. Grace Abdul Urea nitrogen/Creatinine [Mass ratio] 19.7 mg/mg Normal [facility] Comment on above: Performed By: #### C MP, TSH, HSTROPN, BNP #### [facility] [address] [place] [address] Dr. Grace Abdul PROTIMEon 11-11-2021 INR Coag (PPP) [Relative time] 0.95 {INR} Normal [facility] Comment on above: Performed By: #### B MP #### [facility] [address] [place] [address] Dr. Grace Abdul INR GUIDELINES SEE BELOW Normal [facility] Comment on above: Result Comment: DURAN RED INR: 2.0 - 3.0 CONDITIONS NOT LISTED BELOW 2.5 - 3.5 FOR PROSTHETIC HEART VALVE REPLACEMENT 2.5 - 3.5 RECURRENT THROMBOSIS Performed By: #### B MP #### [facility] [address] [place] [address] Dr. Grace Abdul PT Coag (PPP) [Time] 10.3 s Normal 9.0-11.6 [facility] Comment on above: Performed By: #### B MP #### [facility] [address] [place] [address] Dr. Grace Abdul PTTon 11-11-2021 aPTT Coag (Bld) [Time] 21.3 s Critically low 22.3-36.2 [facility] Comment on above: Performed By: #### B MP #### [facility] [address] [place] [address] Dr. Grace Abdul TROPONIN, HIGH SENSITIVITYon 11-11-2021 HSTROP 6.5 pg/mL Normal 4.0-51.3 [facility] Comment on above: Result Comment: CUT- OFF POINTS HAVE BEEN ESTABLISHED BASED ON THE FOURTH UNIVERSAL DEFINITIONS OF MYOCARDIAL INFARCTION. THE UPPER REFERENCE LIMIT (URL) OF TROPONIN, DEFINED THE 99TH PERCENTILE OF cTnI DISTRIBUTION IN A REFERENCE POPULATION, HAS BEEN CONFIRMED THE DECISION THRESHOLD FOR AR DIAGNOSIS. Performed By: #### C MP, TSH, HSTROPN, BNP #### [facility] [address] [place] [address] Dr. Grace Abdul TSHon 11-11-2021 TSH 2.140 uIU/mL Normal 0.358-3.740 [facility] Comment on above: Performed By: #### C MP, TSH, HSTROPN, BNP ####[facility] [id number] [place], [place] [id number]. Grace Abdul XR CHEST 1 Von 11-11-2021 [...] KRANTHI CONNORS Date: 2021-11-11 13:34 Normal [facility] CARDIAC JOVITA ADMITon 022 CK [Catalytic activity/Vol] 89 U/L Normal 26-192 [facility] Comment on above: Performed By: #### C VDTBH #### [facility] [address] [address] [address] Grace Abdul CK.MB [Mass/Vol] 1.92 ng/mL Normal <=3.60 [facility] Comment on above: Performed By: #### C VDTBH #### [facility] [address] [address] [address] Grace Abdul HSTROP 5.7 pg/mL Normal 4.0-51.3 [facility] Comment on above: Result Comment: CUT- OFF POINTS HAVE BEEN ESTABLISHED BASED ON THE FOURTH UNIVERSAL DEFINITIONS OF MYOCARDIAL INFARCTION. THE UPPER REFERENCE LIMIT (URL) OF TROPONIN, DEFINED THE 99TH PERCENTILE OF cTnI DISTRIBUTION IN A REFERENCE POPULATION, HAS BEEN CONFIRMED THE DECISION THRESHOLD FOR AR DIAGNOSIS. Performed By: #### C VDTBH #### [facility] [address] [id number] [address] Grace Abdul JOHNNA 86 ng/mL Critically high 9-82 [facility] Comment on above: Performed By: #### C VDTBH #### [facility] [address] [place] [address] Dr. Grace Abdul CBC AUTO DIFFon 09-13-2021 BASO # 0.0 103/ul Normal 0.0-0.1 [facility] Comment on above: Performed By: #### C VDTBH #### [facility] [address] [place] [address] Dr. Grace Abdul Basophils/100 WBC (Bld) 0.5 % Normal 0.2-2.0 [facility] Comment on above: Performed By: #### C VDTBH #### [facility] [address] [place] [address] Dr. Grace Abdul EO # 0.0 103/ul Normal 0.0-0.7 [facility] Comment on above: Performed By: #### C VDTBH #### [facility] [address] [place] [address] Dr. Grace Abdul Eosinophils/100 WBC (Bld) 0.7 % Critically low 0.9-7.0 [facility] Comment on above: Performed By: #### C VDTBH #### [facility] [address] [place] [address] Dr. Grace Abdul Erythrocyte distribution width (RBC) [Ratio] 13.2 % Normal 11.0-15.0 [facility] Comment on above: Performed By: #### C VDTBH #### [facility] [address] [place] [address] Dr. Grace Abdul Hematocrit (Bld) [Volume fraction] 34.8 % Critically low 36.0-48.0 [facility] Comment on above: Performed By: #### C VDTBH #### [facility] [address] [place] [address] Dr. Grace Abdul Hemoglobin (Bld) [Mass/Vol] 11.9 g/dL Critically low 12.0-16.0 [facility] Comment on above: Performed By: #### C VDTBH #### [facility] [address] [place] [address] Dr. Grace Abdul IG # 0.01 10e3/ul Normal 0.00-0.03 [facility] Comment on above: Performed By: #### C VDTBH #### [facility] [address] [place] [address] Dr. Grace Abdul IG % 0.2 % Normal 0.0-0.5 [facility] Comment on above: Performed By: #### C VDTBH #### [facility] [address] [place] [address] Dr. Grace Abdul LYMPH # 0.6 103/ul Critically low 1.2-3.8 [facility] Comment on above: Performed By: #### C VDTBH #### [facility] [address] [place] [address] Dr. Grace Abdul Lymphocytes/100 WBC (Bld) 14.2 % Critically low 20.5-60.0 [facility] Comment on above: Performed By: #### C VDTBH #### [facility] [address] [place] [address] Dr. Grace Abdul MANUAL DIFF REQ NO Normal [facility] Comment on above: Performed By: #### C VDTBH #### [facility] [address] [place] [address] Dr. Grace Abdul MCH (RBC) [Entitic mass] 31.5 pg Normal 26.7-34.0 [facility] Comment on above: Performed By: #### C VDTBH #### [facility] [address] [place] [address] Dr. Grace Abdul MCHC (RBC) [Mass/Vol] 34.2 g/dL Normal 29.9-35.2 [facility] Comment on above: Performed By: #### C VDTBH #### [facility] [address] [place] [address] Dr. Grace Abdul MCV (RBC) [Entitic vol] 92.1 fL Normal 81.0-99.0 [facility] Comment on above: Performed By: #### C VDTBH #### [facility] [address] [place] [address] Dr. Grace Abdul MONO # 0.7 103/ul Normal 0.3-0.8 [facility] Comment on above: Performed By: #### C VDTBH #### [facility] [address] [place] [address] Dr. Grace Abdul Monocytes/100 WBC (Bld) 15.6 % Critically high 1.7-12.0 [facility] Comment on above: Performed By: #### C VDTBH #### [facility] [address] [place] [address] Dr. Grace Abdul NEUT # 3.0 103/ul Normal 1.4-6.5 [facility] Comment on above: Performed By: #### C VDTBH #### [facility] [address] [place] [address] Dr. Grace Abdul Neutrophils/100 WBC (Bld) 68.8 % Normal 43.0-75.0 [facility] Comment on above: Performed By: #### C VDTBH #### [facility] [address] [place] [address] Dr. Grace Abdul Platelet mean volume (Bld) [Entitic vol] 9.5 fL Normal 9.5-13.5 [facility] Comment on above: Performed By: #### C VDTBH #### [facility] [address] [place] [address] Dr. Grace Abdul PLT 303 103/ul Normal 150-450 [facility] Comment on above: Performed By: #### C VDTBH #### [facility] [address] [place] [address] Dr. Grace Abdul RBC 3.78 106/ul Critically low 4.20-5.40 [facility] Comment on above: Performed By: #### C VDTBH #### [facility] [address] [place] [address] Dr. Grace Abdul WBC 4.4 103/ul Normal 4.0-11.0 [facility] Comment on above: Performed By: #### C VDTBH #### [facility] [address] [place] [address] HEAD WO CONon [...] KRANTHI CONNORS Date: 2021-09-13 13:24 Normal [facility] Covid-19 PCR (CVDTB)on 08-22 SARS-CoV-2 (COVID-19) RNA LUISITO+probe Ql (Unsp spec) Not detected Normal NOT DETECTED [facility] Comment on above: Result Comment: When [...] for this test is supported by the [employer] of [employer] and Human Service's declaration that [...] used). Performed By: #### C VDTB #### [facility] [address] [address] [address] Grace Abdul ER URINE PROFILEon 2 Bilirubin Ql (U) Negative Normal NEGATIVE [facility] Comment on above: Performed By: #### B MP #### [facility] [address] [place] [address] Dr. Grace Abdul Clarity (U) CLEAR Normal CLEAR [facility] Comment on above: Performed By: #### B MP #### [facility] [address] [place] [address] Dr. Grace Abdul Color (U) LT. YELLOW Normal YELLOW [facility] Comment on above: Performed By: #### B MP #### [facility] [address] [place] [address] Dr. Grace Abdul ERUAHAly A micrscopic examination will be performed if indicated. Normal [facility] Comment on above: Performed By: #### B MP #### [facility] [address] [place] [address] Dr. Grace Abdul Glucose Ql (U) Negative Normal NEGATIVE [facility] Comment on above: Performed By: #### B MP #### [facility] [address] [place] [address] Dr. Grace Abdul Hemoglobin Ql (U) Negative Normal NEGATIVE [facility] Comment on above: Performed By: #### B MP #### [facility] [address] [place] [address] Dr. Grace Abdul Ketones Ql (U) TRACE Abnormal NEGATIVE [facility] Comment on above: Performed By: #### B MP #### [facility] [address] [place] [address] Dr. Grace Abdul LEUKOCYTES TRACE Abnormal NEGATIVE [facility] Comment on above: Performed By: #### B MP #### [facility] [address] [place] [address] Dr. Grace Abdul Nitrite Ql (U) Negative Normal NEGATIVE [facility] Comment on above: Performed By: #### B MP #### [facility] [address] [place] [address] Dr. Grace Abdul pH (U) 8.0 [pH] Normal 5-9 [facility] Comment on above: Performed By: #### B MP #### [facility] [address] [place] [address] Dr. Grace Abdul SPEC GRAVITY 1.015 Normal 1.005-<=1.025 [facility] Comment on above: Performed By: #### B MP #### [facility] [address] [place] [address] Dr. Grace Abdul UA PROTEIN Negative Normal NEGATIVE/ TRACE [facility] Comment on above: Performed By: #### B MP #### [facility] [address] [place] [address] Dr. Grace Abdul UR MICRO IND INDICATED Normal [facility] Comment on above: Performed By: #### B MP #### [facility] [address] [place] [address] Dr. Grace Abdul Urobilinogen Qn (U) 0.2 {Ashley'U}/dL Normal 0.2 - 1. 0 [facility] Comment on above: Performed By: #### B MP #### [facility] [address] [place] [address] Dr. Grace Abdul PROF 14(COMP METB)on 022 Albumin [Mass/Vol] 3.8 g/dL Normal 3.4-5.0 [facility] Comment on above: Performed By: #### C VDTBH #### [facility] [address] [place] [address] Dr. Grace Abdul Albumin/Globulin [Mass ratio] 1.4 {ratio} Normal [facility] Comment on above: Performed By: #### C VDTBH #### [facility] [address] [place] [address] Dr. Grace Abdul ALP [Catalytic activity/Vol] 53 U/L Normal 46-116 [facility] Comment on above: Performed By: #### C VDTBH #### [facility] [address] [place] [address] Dr. Grace Abdul ALT [Catalytic activity/Vol] 20 U/L Normal 14-59 [facility] Comment on above: Performed By: #### C VDTBH #### [facility] [address] [address] [address] Grace Abdul Anion gap [Moles/Vol] 12.0 mmol/L Normal [facility] Comment on above: Performed By: #### C VDTBH #### [facility] [address] [address] [address] Grace Abdul AST [Catalytic activity/Vol] 18 U/L Normal 15-37 [facility] Comment on above: Performed By: #### C VDTBH #### [facility] [address] [address] [address] Grace Abdul Bilirubin [Mass/Vol] 0.4 mg/dL Normal 0.2-1.0 [facility] Comment on above: Performed By: #### C VDTBH #### [facility] [address] [place] [address] Dr. Grace Abdul Calcium [Mass/Vol] 9.5 mg/dL Normal 8.5-10.1 [facility] Comment on above: Performed By: #### C VDTBH #### [facility] [address] [place] [address] Dr. Grace Abdul Chloride [Moles/Vol] 99 mmol/L Normal 98-107 [facility] Comment on above: Performed By: #### C VDTBH #### [facility] [address] [place] [address] Dr. Grace Abdul CO2 [Moles/Vol] 28.1 mmol/L Normal 21.0-32.0 [facility] Comment on above: Performed By: #### C VDTBH #### [facility] [address] [place] [address] Dr. Grace Abdul Creatinine [Mass/Vol] 1.25 mg/dL Critically high 0.55-1.02 [facility] Comment on above: Performed By: #### C VDTBH #### [facility] [address] [place] [address] Dr. Grace Abdul EGFR-AF [place] 50 mL/min/1.73m2 Critically low >=60 [facility] Comment on above: Performed By: #### C VDTB #### [facility] [address] [address] [address] Grace Abdul EGFR-NON AF [place] 41 mL/min/1.73m2 Critically low >=60 [facility] Comment on above: Performed By: #### C VDTBH #### [facility] [address] [address] [address] Grace Abdul Globulin (S) [Mass/Vol] 2.7 g/dL Normal [facility] Comment on above: Performed By: #### C VDTBH #### [facility] [address] [address] [address] Grace Abdul Glucose [Mass/Vol] 131 mg/dL Critically high 74-106 T [facility] Comment on above: Performed By: #### C VDTBH #### [facility] [address] [place] [address] Dr. Grace Abdul Potassium [Moles/Vol] 4.1 mmol/L Normal 3.5-5.1 [facility] Comment on above: Performed By: #### C VDTBH #### [facility] [address] [address] [address] Grace Abdul Protein [Mass/Vol] 6.5 g/dL Normal 6.4-8.2 [facility] Comment on above: Performed By: #### C VDTBH #### [facility] [address] [address] [address] Grace Abdul Sodium [Moles/Vol] 135 mmol/L Critically low 136-145 Th [facility] Comment on above: Performed By: #### C VDTBH #### [facility] [address] [address] [address] Grace Abdul Urea nitrogen [Mass/Vol] 33.0 mg/dL Critically high 7.0-18.0 [facility] Comment on above: Performed By: #### C VDTBH #### [facility] [address] [place] [address] Dr. Grace Abdul Urea nitrogen/Creatinine [Mass ratio] 26.4 mg/mg [facility] Comment on above: Performed By: #### C VDTBH #### [facility] [address] [place] [address] Dr. Grace Abdul URINE MICROSCOPIC ONLYon BACTERIA NONE SEEN Normal NONE SEEN [facility] Comment on above: Performed By: #### C BC #### [facility] [address] [place] [address] Dr. Grace Abdul Bacteria identified Cx Nom (U) NOT INDICATED Normal [facility] Comment on above: Performed By: #### C BC #### [facility] [address] [place] [address] Dr. Grace Abdul CAST NONE SEEN Normal NONE SEEN [facility] Comment on above: Performed By: #### C BC #### [facility] [address] [place] [address] Dr. Grace Abdul Crystals LM Nom (Urine sed) NONE SEEN Normal NONE SEEN [facility] Comment on above: Performed By: #### C BC #### [facility] [address] [place] [address] Dr. Grace Abdul Epithelial cells LM Ql (Urine sed) FEW Abnormal NONE SEEN /RARE [facility] Comment on above: Performed By: #### C BC #### [facility] [address] [place] [address] Dr. Grace Abdul MUCOUS NONE SEEN Normal NONE SEEN [facility] Comment on above: Performed By: #### C BC #### [facility] [address] [place] [address] Dr. Grace Abdul RBC 0-2 Normal 0-2 [facility] Comment on above: Performed By: #### C BC #### [facility] [address] [place] [address] Dr. Grace Abdul WBC 0-2 Abnormal NONE SEEN [facility] Comment on above: Performed By: #### C BC #### [facility] [address] [place] [address] Dr. Grace Abdul XR CHEST 1 Von [...] by: KRANTHI CONNORS Date: 2021-09-13 13:19 Normal [facility] CERV SP W/OBLS/FLEX/EXT 6 OR >on 12-12-2020 CERV SP W/OBLS/FLEX/EXT 6 OR > STUDY: CERV SP W/OBLS/FLEX/EXT 6 OR >; 12/12/2020 9:40 am INDICATION: NECK PAIN. COMPARISON: None. ACCESSION NUMBER(S): [id number] ORDERING CLINICIAN: Aiden Younger TECHNIQUE: AP, lateral, [...] findings. Dense left carotid artery calcifications. Normal [facility] Vital Signs Date Time Vital Sign Value Performing Clinician Aimee pollock 12-06-2023 11:32-0400 Body height 147.3 cm Armando Morales [employer] Work Phone: [facility] 12-06-2023 11:32-0400 Body mass index (BMI) [Ratio] 34.28 kg/m2 Armando Morales [employer] Work Phone: [facility] 12-06-2023 11:32-0400 Body weight 74.39 kg Armando Morales [employer] Work Phone: [facility] 12-06-2023 11:32-0400 Diastolic blood pressure 82 mm[Hg] Armando Morales DO Work Phone: [facility] 12-06-2023 11:32-0400 Systolic blood pressure 142 mm[Hg] Armando Morales DO Work Phone: [facility] 09-21-2022 12:51-0400 Diastolic blood pressure 60 mm[Hg] Carolyn Vanegas MD Work Phone: [facility] 09-21-2022 12:51-0400 Heart rate 67 /min Carolyn Vanegas MD Work Phone: [facility] 09-21-2022 12:51-0400 Systolic blood pressure 153 mm[Hg] Carolyn Vanegas MD Work Phone: [facility] 05-14-2022 14:24-0400 Diastolic blood pressure 87 mm[Hg] Marty Dozier DO Work Phone: [facility] 05-14-2022 14:24-0400 Heart rate 72 /min Marty Dozier DO Work Phone: [facility] 05-14-2022 14:24-0400 Systolic blood pressure 158 mm[Hg] Marty Dozier DO Work Phone: [facility] 05-14-2022 14:22-0400 Body height 152.4 cm Marty Dozier DO Work Phone: [facility] 05-14-2022 14:22-0400 Body weight 76.39 kg Marty Dozier DO Work Phone: [facility] 05-14-2022 14:22-0400 SaO2% (BldA) [Mass fraction] 99 % Marty Dozier DO Work Phone: [facility] Encounters Encounter Date Encounter Type Care Provider Facility Start: 02-06-2024 End: 02-06-2024 ambulatory Lyn Quiñones MD Facility: [facility] Start: 01-16-2024 End: 01-16-2024 ambulatory Lyn Quiñones MD Facility: [facility] Start: 12-06-2023 End: 12-06-2023 Patient encounter procedure Armando Morales DO Work Phone: [facility] Comment on above: Encounter for gyneco logical examination without abnormal finding; Encounter for Papanicolaou smear of vagina; Breast cancer screening by mammogram Start: 12-06-2023 End: 12-06-2023 Patient encounter status Armando Morales DO Work Phone: [facility] Start: 12-06-2023 End: 12-06-2023 ambulatory ARMANDO MORALES Not Available Start: 09-26-2023 End: 09-26-2023 ambulatory Lyn [facility] MD [facility] Start: 09-12-2023 End: 09-12-2023 ambulatory Lyn Quiñones MD Facility:[facility] Start: 08-18-2023 End: 08-18-2023 ambulatory Galina Rogers Facility:[facility] Start: 08-08-2023 End: 08-08-2023 ambulatory COLETTE MATOS Not Available Start: 06-06-2023 End: 06-06-2023 ambulatory Lyn Quiñones MD [facility] Start: 05-23-2023 End: 05-23-2023 ambulatory Lyn Quiñones MD Facility:[facility] Start: 09-21-2022 End: 09-21-2022 ambulatory GALINA ROGERS Facility:[facility] Start: 09-21-2022 End: 09-21-2022 Patient encounter [...] End: 05-14-2022 ambulatory MARTY DOZIER Facility:[facility] Start: 05-14-2022 End: 05-14-2022 Patient encounter [...] 09-12-2017 End: 09-13-2017 Patient encounter DEFAULT PHYSICIAN Facility:[facility] Plan of Treatment Date Care Activity Detail Author Start: 12-10-2025 End: 12-10-2025 Patient encounter procedure 12/10/2025 11:30 AM EDT Office Visit [facility] [address] [place] [id number] Armando Morales, DO [address] [place] [address] [facility] Start: 10-23-2023 Influenza vaccination Influenza Vacc ine (#1) [facility] Start: 10-22-2022 Influenza vaccination INFLUENZA (#1) [facility] Start: 04-11-2022 COVID-19 VACCINE (6 - Moderna series) COVID-19 VACCINE (6 - Moderna series) [facility] Start: 02-21-2022 ADVANCE DIRECTIVE DISCUSSION ADVANCE DIRECTIVE DISCUSSION [facility] Start: 02-21-2022 DEPRESSION ASSESSMENT DEPRESSION ASS ESSMENT [facility] Start: 11-12-2017 Pneumococcal Vaccine : 65+ Years (2 of 2 - PPSV23 or PCV20) Pneumococcal Vaccine: 65+ Years (2 of 2 - PPSV23 or PCV20) [facility] Start: 11-12-2017 PNEUMOCOCCAL: 65+ (2 - PPSV23 if available, else PCV20) PNEUMOCOCCAL: 65+ (2 - PPSV23 if available, else PCV20) [facility] Start: 11-12-2017 PNEUMOCOCCAL: 65+ (2 - PPSV23 or PCV20) PNEUMOCOCCAL: 65+ (2 - PPSV23 or PCV20) [facility] Start: 07-22-2017 SHINGRIX VACCINE (2 of 3) SHINGRIX VACCINE (2 of 3) [facility] Start: 04-30-2004 BONE DENSITY BONE DENSITY [facility] Start: 04-30-1984 DIABETES SCREEN DIABETES SCREEN [facility] Start: 04-30-1958 Urine microalbumin profile DTAP,TDAP,TD (1 - Tdap) [facility] IGP,rfxAptima HPV all,16/18,45 IGP,rfxAptima HPV all,16/18,45 Pathology and Cytology Routine Encounter for Papanicolaou smear of vagina Ordered: 12/06/2023 [facility] Work Phone: Comment on above: Ordered: 12/06/2023 Immunizations Immunization Date Immunization Notes Care Provider Armando schwartz 12-09-2021 Moderna Bivalent Gama ster Vaccination Armando Morales DO Work Phone: [facility] 12-02-2021 Influenza, injectabl e, Madin Carmina Canine Kidney, preservative free, quadrivalent Marty Dozier DO Work Phone: [facility] 12-02-2021 influenza virus vacc ine, unspecified formulation Armando Morales DO Work Phone: [facility] 11-28-2020 influenza virus vacc ine, unspecified formulation Marty Dozier DO Work Phone: [facility] 11-29-2019 Seasonal trivalent influenza vaccine, adjuvanted, preservative free Marty Dozier DO Work Phone: [facility] 05-27-2017 zoster vaccine, live Marty Dozier DO Work Phone: [facility] 11-12-2016 pneumococcal conjuga te vaccine, 13 valent Marty Dozier DO Work Phone: [facility] Payers Date Payer Category Payer Private Health Insurance [id number] 2004 Medicare [id number] 2004 Unknown 1959 Medicare [id number] 1959 Self-pay 1959 Unknown [id number] 1939 Unknown [id number] 2.16.84 0.1.323156.3.579.2.593 1939 Unknown [id number] 2.16.84 0.1.442028.3.579.2.593 1939 Unknown [id number] 2.16.84 0.1.182353.3.579.2.593 1939 Unknown [id number] 2.16.84 0.1.039207.3.579.2.593 1939 Unknown [id number] 2.16.84 0.1.212156.3.579.2.593 1939 Unknown [id number] 2.16.84 0.1.292880.3.579.2.593 1939 Unknown [id number] 2.16.84 0.1.335877.3.579.2.593 1939 Unknown [id number] 2.16.84 0.1.995969.3.579.2.593 1939 Unknown [id number] 2.16.84 0.1.647137.3.579.2.593 1939 Unknown [id number] 2.16.84 0.1.572710.3.579.2.593 1939 Unknown [id number] 2.16.84 0.1.360132.3.579.2.593 1939 Unknown [id number] 2.16.84 0.1.445927.3.579.2.593 1939 Unknown [id number] 2.16.84 0.1.882476.3.579.2.593 1939 Unknown [id number] 2.16.84 0.1.116810.3.579.2.593 1939 Unknown [id number] 2.16.84 0.1.172883.3.579.2.593 1939 Unknown [id number] 2.16.84 0.1.302927.3.579.2.593 1939 Unknown [id number] 2.16.84 0.1.627756.3.579.2.593 1939 Unknown [id number] 2.16.84 0.1.280855.3.579.2.593 1939 Unknown [id number] 2.16.84 0.1.435929.3.579.2.593 1939 Unknown [id number] 2.16.84 0.1.130782.3.579.2.593 1939 Unknown [id number] 2.16.84 0.1.674889.3.579.2.593 1939 Unknown [id number] 2.16.84 0.1.217778.3.579.2.593 1939 Unknown [id number] 2.16.84 0.1.140368.3.579.2.593 1939 Unknown [id number] 2.16.84 0.1.956019.3.579.2.593 1939 Unknown [id number] 2.16.84 0.1.401772.3.579.2.593 1939 Unknown [id number] 2.16.84 0.1.478326.3.579.2.1259 1939 Unknown [id number] 2.16.84 0.1.061312.3.579.2.1259 1939 Unknown [id number] 2.16.84 0.1.805376.3.579.2.1259 1939 Unknown [id number] 2.16. 840.1.328007.3.579.2.196 1939 Unknown [id number] 2.16. 840.1.966845.3.579.2.196 1939 Unknown [id number] 2.16. 840.1.917873.3.579.2.196 1939 Unknown [id number] 2.16. 840.1.870472.3.579.2.196 1939 Unknown [id number] 2.16. 840.1.093589.3.579.2.196 1939 Unknown [id number] 2.16. 840.1.323663.3.579.2.196 Social History Date Type Detail Facility Start: 05-14-2022 End: 08-02-2022 Tobacco smoking status NHIS Never smoked tobacco [facility] Start: 05-14-2022 End: 08-02-2022 Tobacco use and exposure Smokeless tobacco non-user [facility] Start: 05-14-2022 End: 12-06-2023 Alcohol intake Lifetime non-drinker (finding) [facility] Start: 1940 Sex Assigned At Not on file [facility] Start: 09-21-2022 End: 12-06-2023 History of Social function [facility] Start: 09-21-2022 End: 12-06-2023 Tobacco use panel [facility] Adult Depression Scr eening Assessment 2 [facility] How often to you hav e [...] Obstetrics and Gynecology Alexa Delgado 1940 12/06/23 [id number] Yearly Wellness Exam Chief Complaint Patient presents with Gynecologic Exam Medicare yearly. LMP: SUNIL BSO 1972 HRT: None Last pap 12-02-21 neg. Last mammogram 12-05-23 [facility] ordered by PCP. Denies breast or urinary [...] Oil) 1000 MG capsule as directed Orally Qmgpjqaimtm-Nhkadbmedpi-ZFJ (Triple Flex) 500-400-125 MG tablet 1 tablet with meals Orally twice daily for 30 days HYDROcodone-acetaminophen ([place]) 5-325 MG tablet 1 tablet as needed [...] excision of lesion on leg ( benign) ME CAPSULOTOMY POSTERIOR CAPSULAR RELEASE KNEE 05/15/2013 Yttrium aluminum garnet (YAG) capsulotomies ME KNEE SCOPE,CLEAN/DRAIN 10/1998 Dr. De Leon ME LAMNOTMY INCL W/DCMPRSN NRV ROOT 1 INTRSPC [...] of completed stroke hx of stroke at [id number]/ TIA 1984 Kidney disease remission Kidney disease hx of hospitalization Lumbar disc herniation 2007 L4 L5 Miscarriage x3 Pelvic fracture (CMS/HCC) 2018 hx of hospitalization x4 Status post laser cataract surgery of left eye 2014 Stroke ([facility] 1973 at childbirth TIA (transient ischemic [...] costovertebral angle tenderness, no obvious scoliosis/kyphosis. 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 documented in this encounter [facility] 09-21-2022 Note HNO ID: [id number] Author: Carolyn Vanegas MD Service: ? Author [...] Health Percentile 1 (more content not included)... [facility] 09-21-2022 Instructions Carolyn Vanegas MD [...] at this time. documented in this encounter [facility] 09-21-2022 History of Present illness Narrative [...] 4 - Moderate documented in this encounter [facility] 08-26-2022 Note HNO ID: [id number] Author: Kassandra Alves PA-C Service: ? Author Type: Physician Parking Enforcement Manager Type: Progress Notes Filed: 08/26/2022 11:52 AM Note Text: Per Triage: Alexa Delgado is a 82 year old female that requests evaluation of spine. Per review, they have symptoms of lower back pain. Numbness/tingling right leg. Difficulty walking. Weakness Request: 1st available Referring provider: Galina Rogers MD Patient out of state: no 2nd opinion: no Prior spine surgery: yes 2006 [facility] Address: [address] [place] [address] CMT: PT Injections Tylenol Hydrocodone Studies (Reports [...] reviewed during the appt Kassandra Alves PA-C [facility] 08-26-2022 History of Present illness Narrative Per Triage: Alexa Delgado is a 82 year old female that requests evaluation of spine. Per review, they have symptoms of lower back pain. Numbness/tingling right leg. Difficulty walking. Weakness Request: 1st available Referring provider: Galina Rogers MD Patient out of state: no 2nd opinion: no Prior spine surgery: yes 2006 [facility] Address: [address] [place] [address] CMT: PT Injections Tylenol Hydrocodone Studies (Reports [...] Health Provider or Pain Management Provider at [facility]? No If answer is YES please [...] facility where the MRI/CT/myelogram was completed: [facility] Address: [address] [place] [address] MRI/CT/myelogram viewable in Epic: No If not, please provide [phone] to fax in imaging reports for review. [...] physical therapy was completed PT Injection [facility] Address: [address] [place] [address] Have you tried any other kinds of [...] where the surgery was completed: 2006 [facility] Address: [address] [place] [address] Additional Comments documented in this encounter [facility] 08-19-2022 Note HNO ID: [id number] Author: Micheal Bowman Service: ? Author Type: ? Type: Progress Notes Filed: 08/26/2022 11:52 AM Note Text: Patient name: Alexa Delgado Are you being referred by a [facility] Provider or Pain Management Provider at [facility]? No If answer is YES please schedule directly with surgeon, triage does not need to be completed. Is this a self-referral No If not, who is the Referring Provider Galina Rogres MD Is this a 2nd opinion? No Were you offered surgery? No MRI/CT/myelogram within 12 months? Yes If NO , please refer to medical spine or PCP to complete above imaging, triage does not need to be completed If YES,? please ask for the name/address of the facility where the MRI/CT/myelogram was completed: [facility] Address: [address] [place] [address] MRI/CT/myelogram viewable in Epic: No If not, please provide [phone] to fax in imaging reports for review. [...] physical therapy was completed PT Injection [facility] Address: [address] [place] [address] Have you tried any other kinds of [...] of where the surgery was completed: 2006 [facility] Address: [address] [id number] Additional Comments [facility] 07-16-2022 Note PROCEDURE: XR HIP [...] authenticated by: HERMES MENDOZA Date: 2022-07-16 11:28 [facility] 05-14-2022 Note HNO ID: [id number] Author: Marty Dozier, DO Service: ? Author Type: Physician Type: Progress Notes Filed: 05/15/2022 10:02 PM Note Text: [facility] [place] [facility] - Medical Spine Initial [...] Ratio: R>L low back Current Treatment: Medications [place] 5-325 mg BID - helps Diclofenac 75 [...] but still has pain -01/28/22 Noemi 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 Niko [...] today. She has an evaluation at the [facility] tomorrow at the Spine Center. RECOMMENDATIONS: We will see the patient back in the office after she undergoes evaluation there to discuss her treatment plan thereafter. We will see the patient back in the office in approximately four weeks' time or sooner if needed. PMH: Lumbar scoliosis Depression on Negrita (more content not included)... [facility] 05-14-2022 History of Present illness Narrative Images from the original note were not included. [facility] [place] [facility] Medical [...] Ratio: R>L low back Current Treatment: Medications [place] 5-325 mg BID - helps Diclofenac 75 [...] but still has pain -01/28/22 Noemi 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 Niko [...] today. She has an evaluation at the [facility] tomorrow at the Spine Center. RECOMMENDATIONS: [...] reviewed 04/04/22 CT abd/pelvis with IV contrast, [facility], report: Abdominal wall: Old healed left pelvis fractures. Degenerative changes and scoliosis of the lumbar spine. IMPRESSION: No acute abdominal pathology. No acute inflammatory process. No obstructing urinary tract stone. No evidence for bowel obstruction. 11/15/21 XR abd, [facility], report: No acute osseous abnormality. There is moderate dextrocurvature of the lumbar spine. 05/08/2021 XR right hip/pelvis, [facility], report: Rotatory dextro scoliosis of the [...] TIME: 3:15 PM documented in this encounter [facility] 05-13-2022 Note CONSULTATION CONSULTATION DATE: 05/13/2022 [...] mg at h.s., diclofenac 75 mg b.i.d., [place] 5 mg b.i.d. EXAM: Notable for the [...] today. She has an evaluation at the [facility] tomorrow at the Spine Center. RECOMMENDATIONS: We will see the patient back in the office after she undergoes evaluation there to discuss her treatment plan thereafter. We will see the patient back in the office in approximately four weeks' time or sooner if needed. [facility] 04-06-2022 Note CONSULTATION CONSULTATION DATE: 04/06/2022 [...] to kidney dysfunction also. The patient takes [place], however, is very controlled and limits it to the point of detriment. Education was done. The patient was instructed to take the [place] to a b.i.d. to t.i.d. basis. The [...] b.i.d. basis. The patient may increase the [place] to 5/325 t.i.d. We will schedule the [...] the procedure. CC: Galina Rogers M.D. [facility] 03-11-2022 Note CONSULTATION CONSULTATION DATE: 03/11/2022 [...] gave improvement for 24 hours. Medications include [place] 5/325 b.i.d., diclofenac 75 mg b.i.d., citalopram [...] back pain. PLAN: We will refill her [place] 5/325 b.i.d. We will prescribe her Buderer cream with gabapentin, ketorolac and prilocaine/lidocaine to be placed over her right knee. We will trial Requip 0.25 mg q.h.s. We will see the patient in the clinic in three months' time unless otherwise indicated. Patient agrees with the plan. [facility] 01-28-2022 Note CONSULTATION CONSULTATION DATE: 01/28/2022 [...] daily which decreases her pain. Medications include [place] 5/325 b.i.d., Flexeril 5 mg b.i.d., diclofenac [...] does consent to. We will refill the [place] 5/325 b.i.d. We will pre-authorize for a right genicular nerve block under fluoroscopy. Patient will follow up in the clinic thereafter. [facility] 01-28-2022 Note CONSULTATION PROCEDURE DATE: 01/28/2022 [...] be followed up in the office. [facility] 12-31-2021 Note CONSULTATION CONSULTATION DATE: 12/31/2021 [...] Current medications include diclofenac 75 mg b.i.d., [place] 5/325 b.i.d., citalopram, Flexeril and multivitamin regimen. The patient does state that she breaks her [place] in half and the most she takes [...] and would like to move forward. [facility] 09-30-2021 Note CONSULTATION CONSULTATION DATE: 09/30/2021 This is a very [id number] female accompanied by her returning to the [...] Current medications include diclofenac 50 mg b.i.d., [place] 5/325 b. i.d. and Tylenol. She does [...] at 25 mg q.h.s. Refill for her [place] 5/325 b.i.d. will be sent as well. The patient is to continue with her vitamin regimen which she is currently compliant with, as well as heat application and pool exercises. The patient will be followed up in the office in three months' time unless otherwise indicated. The patient agrees with the plan of care. [facility] Evaluation note Diagnosis Chronic bilateral low back pain with right-sided sciatica- Primary Back pain, lumbosacral Lumbago Chronic sacroiliac joint pain Disorders of sacrum Lumbar spondylosis Lumbosacral spondylosis without myelopathy Scoliosis of lumbar spine, unspecified scoliosis type [facility] Spinal stenosis, lumbar region with neurogenic claudication- Primary Spondylolisthesis, lumbar region Other idiopathic scoliosis, lumbar region [facility] Obesity, Class I, BMI 30-34.9- Primary Obesity, unspecified Spinal stenosis, lumbar region with neurogenic claudication [facility] Diagnosis Encounter for gynecological examination [...] Procedures Referred By Contac t Referred To [facility] [place] Diagnoses Spinal stenosis, lumbar region with neurogenic claudication Procedures CONSULT TO [facility] ([facility] PAIN) OFFICE/OUTPATIENT NEW HIGH MDM 60-74 MINUTES Carolyn Vanegas MD [address] [place] [address] Referral ID Status Reason Start Date Expiration Date Visits Requested Visits Authorized [id number] Pending Review PCP Requested Referral 09/21/2022 09/21/2023 1 1 Additional Source Comments INFORMATION SOURCE (unrecogn ized section and content) DATE CREATED AUTHOR 09/13/2017 [facility] DATE CREATED AUTHOR AUTHOR'S ORGANIZ ATION 12/13/2020 [facility] DATE CREATED AUTHOR AUTHOR'S ORGANIZ ATION 07/30/2022 [facility] [facility] DATE CREATED AUTHOR AUTHOR'S ORGANIZ ATION 09/22/2022 [facility] DATE CREATED AUTHOR AUTHOR'S ORGANIZ ATION 10/26/2023 [facility] DATE CREATED AUTHOR AUTHOR'S ORGANIZ ATION 12/08/2023 [facility] DATE CREATED AUTHOR AUTHOR'S ORGANIZ ATION 02/15/2024 [facility] Source Comments (unrecognize d section and content) In the event this informatio n is protected by the Federal Confidentiality of Alcohol and Drug Abuse Patient Records regulations: The Federal rules restrict any use of the information to criminally investigate or prosecute any alcohol or drug abuse patient.[facility] the event this information is protected by the Federal Confidentiality of Alcohol and Drug Abuse Patient Records regulations: The Federal rules restrict any use of the information to criminally investigate or prosecute any alcohol or drug abuse patient.[facility] the event this information is protected by the Federal Confidentiality of Alcohol and Drug Abuse Patient Records regulations: The Federal rules restrict any use of the information to criminally investigate or prosecute any alcohol or drug abuse patient.[facility] Reason for Visit (unrecogniz ed section and content) Reason Comments New Patient Evaluation Low Back Pain Reason Comments New Patient Reason Comments Gynecologic Exam Medicare yearly.LMP: SUNIL BSO 1972HRT: NoneLast pap 12-02-21 neg.Last mammogram 12-05-23 [facility] ordered by PCP.Denies breast or urinary concerns. bowel concern Some rectal bleeding with bowel movements. Denies difficulty having a bowel movement. Care Teams (unrecognized sec tion and content) Optician Relationship Specialty Start Date End Date Galina Rogers MD [address] [place] [address] PCP - General Family Medicine 05/14/22 Colette De Leon Jr., DO [address] [place] [address] Referring Orthopedics 05/03/22 Porsha Mario [address] [id number] Pain Management 05/14/22 Colette De Leon Jr., DO [address] [place] [address] Orthopedics 05/14/22 Optician Relationship Specialty Start Date End Date Galina Rogers MD [address] [place] [address] PCP - General Family Medicine 05/14/22 Colette De Leon Jr., DO [address] [facility] [address] [place] [address] Referring Orthopedics 05/03/22 Tereshmigildardoy, Claudioendranath [address] [place] [address] Pain Management 05/14/22 Colette De Leon Jr., DO [address] [place] [address] Orthopedics 05/14/22 Galina Rogers MD [address] [place] [address] Referring Family Medicine 08/11/22 Optician Relationship Specialty Start Date End Date Galina Rogers MD [address] [place] [address] PCP - General Family Medicine 05/14/22 Colette De Leon Jr., DO [address] [facility] [address] [place] [address] Referring Orthopedics 05/03/22 Shermigildardoy, Narendranath [address] [place] [address] [place] [address], [place] [phone] Pain Management 05/14/22 Colette De Leon Jr., DO [address] [place] [address] Orthopedics 05/14/22 Galina Rogers MD [address] [place] [address] Referring Family Medicine 08/11/22 Optician Relationship Specialty Start Date End Date Galina Rogers MD [address] [place] [phone] PCP - General Family Medicine 08/02/22 FOR [...] BE BASED ON THE PRIMARY CLINICAL RECORDS. [employer] provides no warranty or guarantee of the accuracy or completeness of information in this document.
[2024-04-30 10:46] VITALS: BP 208/99; PULSE 94; O2SAT 99
[2024-04-30] MEDS: BUPIVACAINE HCL 0.25% PF 25 MG/10 ML VIAL INJ (10:48)
[2024-04-30] MEDS: 0.9 % SODIUM CHLORIDE 10 ML SYRINGE - SALINE FLUSH INJ (10:48)
[2024-04-30] MEDS: IOHEXOL 240 MG/ML - 10 ML VIAL INJ (10:49)
[2024-04-30] MEDS: LIDOCAINE HCL 2% 400 MG/20 ML MDV 3 ML INJ (10:49)
[2024-04-30 10:50] VITALS: BP 216/93; PULSE 91; O2SAT 99
[2024-04-30] MEDS: METHYLPREDNISOLONE ACETATE 80 MG/ML VIAL INJ (10:50)
--- NOTE | 2024-04-30 10:57 | P.ON_ITS ---
Date of procedure: 04/30/24 Pre-op diagnosis: Pain due to lumbar stenosis with neurogenic claudication Post-op diagnosis: same as pre-op Procedure: Procedure: Left L4-5, L5-S1 transforaminal epidural steroid injection Medications: Bupivacaine 0.25% 2cc, lidocaine 2% 1cc, depomedrol 80mg The patient was seen and examined in the preoperative holding area.? Informed consent was obtained and placed on the chart.? Patient was brought to the medical procedure unit and placed in the prone position where a timeout was completed verifying the correct patient, procedure site, position, and planned special equipment using sterile aseptic technique.? Under direct fluoroscopic visualization a 25-gauge Quincke tipped spinal needle was advanced to the designated neural foramen where contrast dye was injected to show adequate spread.? The needle was inserted at level left L4-5. There was no evidence of vascular or adverse uptake.? Epidural spread was appreciated.? The above- mentioned injectate was then placed in a 1.5 mL aliquot preceded by negative aspiration.? The needle was removed. The needle was inserted and the procedure repeated at level left L5-S1.? The surgery site was covered.? Patient was taken to the postprocedural recovery area and monitored for an appropriate length of time before found suitable for discharge in the accompaniment of a responsible adult. Anesthesia: Local Surgeon: Lyn Quiñones Pathology: none sent Condition: stable Disposition: no change
== END 2024-04-30 10:59 | disposition home or self-care (01) ==
PROVIDERS: PCP Family Medicine; Visit Provider Anesthesiology
DX: M48.062 Spinal stenosis, lumbar region with neurogenic claudication (principal)
CPT/HCPCS: 64483; 64484; J0665; J1010; Q9966

== ENCOUNTER 2024-05-16 12:45 | Outpatient (OUT) | payer MEDICARE, SELFPAY ==
--- NOTE | 2024-05-16 13:02 | P.CN_ITS ---
Consult Note: HPI Data of Consult Patient: known to practice within the last 3 years Requesting Physician: Vivian Meza NP Primary Care Provider: Luis Rogers MD Consult Narrative Reason for consult: f/u Narrative: Alexa Delgado a pleasant 84 year old female presents for evaluation and management of chronic pain. Patient rating pain 3-4/10 today, increasing to 8/10 in bilateral SIJ with standing walking and activity. pain improved with lying down, heat, and medications. Patient has found significant improvement in pain and functional ability with past procedures and current medication regimen. since last visit we increased her gabapentin to 200mg BID however it caused drowsiness and shes back to 100mg BID without difficulty. following with PCP for dementia, noticing increased memory loss. recently underwent left L4/5 L5/S1 TFESI with >50% improvement ongoing cc:: CC: Vivian Meza NP Review of Systems ROS Status of ROS 10 or more systems reviewed and unremark able except as noted in history and below Musculoskeletal Reports: back pain and joint pain PFSH PFSH Medical History Pelvic fracture ?S32.9XXA - Fracture of unspecified parts of lumbosacral spine and pelvis, initial encounter for closed fracture (ICD-10) TIA (transient ischemic attack) ?G45.9 - Transient cerebral ischemic attack, unspecified (ICD-10) Closed fracture of coccyx ?S32.2XXA - Fracture of coccyx, initial encounter for closed fracture (ICD- 10) Osteoarthritis ?M19.90 - Unspecified osteoarthritis, unspecified site (ICD-10) H/O pyelonephritis ?Z87.448 - Personal history of other diseases of urinary system (ICD-10) Syncope ?R55 - Syncope and collapse (ICD-10) Generalized weakness ?R53.1 - Weakness (ICD-10) Dizziness ?R42 - Dizziness and giddiness (ICD-10) Surgical History Pain management ?R52 - Pain, unspecified (ICD-10) H/O bladder repair surgery ?Z98.890 - Other specified postprocedural states (ICD-10) H/O breast surgery ?Z98.890 - Other specified postprocedural states (ICD-10) H/O knee surgery ?Z98.890 - Other specified postprocedural states (ICD-10) H/O foot surgery ?Z98.890 - Other specified postprocedural states (ICD-10) History of right knee joint replacement ?Z96.651 - Presence of right artificial knee joint (ICD-10) History of YAG laser capsulotomy of lens ?Z98.49 - Cataract extraction status, unspecified eye (ICD-10) Hx laparoscopic cholecystectomy ?Z90.49 - Acquired absence of other specified parts of digestive tract (ICD- 10) H/O: hysterectomy ?Z90.710 - Acquired absence of both cervix and uterus (ICD-10) History of arthroscopic knee surgery ?Z98.890 - Other specified postprocedural states (ICD-10) H/O discectomy ?Z98.890 - Other specified postprocedural states (ICD-10) H/O dilation and curettage ?Z98.890 - Other specified postprocedural states (ICD-10) History of appendectomy ?Z90.49 - Acquired absence of other specified parts of digestive tract (ICD- 10) Hx of tonsillectomy ?Z90.89 - Acquired absence of other organs (ICD-10) Family History Other Family history of CHF (congestive heart failure) Social History Within the past year, how often did you have a drink containing alcohol: never Score interpretation: A score less than 3 is consistent with normal alcohol consumption. Smoking status: Never smoker Non-prescribed substance use: denies use Previous occupational history: Retired, , lives at home Highest level of school completed/degree received: high school graduate Are you now , , , , never or living with a partner: In a typical week, how many times do you talk on the telephone with family, friends, or neighbors: once per week How often do you get together with friends or relatives: once per week How often do you attend quaker or congregational services: 1-3 times per year Little interest or pleasure in doing things: not at all Feeling down, depressed, or hopeless: not at all Feel stressed/tense/nervous/anxious/difficulty sleeping: not at all Gender Identity: female Meds Home Medications and Allergies Home Medications ?Medication ?Instructions ?Recorded ?Confirmed ?Type calcium 600 mg (as carbonate)-vit 1 tab PO DAILY 07/26/22 11/04/23 History D3 10 mcg (400 unit)-minerals tablet capsaicin 0.025 % topical patch 1 patch topical DAILY pain 07/26/22 04/30/24 History (Salonpas-Hot) citalopram 10 mg tablet 10 mg PO DAILY 07/26/22 04/30/24 History fexofenadine 180 mg tablet 180 mg PO DAILY 07/26/22 04/30/24 History (Benita Allergy) flaxseed oil 1,000 mg capsule 1,000 mg PO DAILY 07/26/22 04/30/24 History glucosamine 750 kk-efynjd-mfw 2-C 1 tab PO DAILY 07/26/22 04/30/24 History 30 mg-D3 1,000 unit-maida 1 mg tablet (Cefrzwhlwwx-Hzsykzaldkm-LIH + vitD) isosorbide mononitrate 30 mg 30 mg PO DAILY 07/26/22 04/30/24 History tablet,extended release 24 hr liothyronine 25 mcg tablet 25 mcg PO DAILY 07/26/22 04/30/24 History (Cytomel) melatonin 3 mg capsule 3 mg PO DAILY 07/26/22 04/30/24 History metoprolol succinate 50 mg 50 mg PO BID 07/26/22 04/30/24 History tablet,extended release 24 hr multivitamin 1 tab PO DAILY 07/26/22 04/30/24 History nitroglycerin 0.4 mg sublingual 0.4 mg sublingual Q5M PRN chest 07/26/22 04/30/24 History tablet pain cyclobenzaprine 10 mg tablet 10 mg PO BEDTIME 04/20/23 04/30/24 History ferrous sulfate 325 mg (65 mg 325 mg PO BID 09/02/23 04/30/24 History iron) tablet diclofenac sodium 75 mg 75 mg PO BID 10/13/23 04/30/24 History tablet,delayed release levothyroxine 75 mcg tablet 75 mcg PO QAM 10/13/23 04/30/24 History pantoprazole 40 mg tablet,delayed 40 mg PO DAILY #30 tabs 10/13/23 04/30/24 Rx release (Protonix) calcium 600 mg (as carbonate)-vit 1 tab PO BID 11/04/23 04/30/24 History D3 20 mcg (800 unit) chewable tablet (Caltrate plus D) gabapentin 100 mg capsule 100 mg PO BID #60 caps 01/05/24 04/30/24 Rx hydrocodone 5 mg-acetaminophen 325 1 tab PO TID PRN pain #90 tabs 01/05/24 04/30/24 Rx mg tablet Allergies Allergy/AdvReac Type Severity Reaction Status Date / Time Penicillins Allergy Severe Hives Verified 04/30/24 10:01 codeine AdvReac Intermediate Dizziness Verified 04/30/24 10:01 fluconazole (From Diflucan) AdvReac Intermediate Hives Verified 04/30/24 10:01 quinine (From Quinamm) AdvReac Mild Headache Verified 04/30/24 10:01 pregabalin (From Lyrica) AdvReac Dizziness Verified 04/30/24 10:01 propoxyphene (From Darvon) AdvReac Headache Verified 04/30/24 10:01 decongest multi-action AdvReac Mild Headache Uncoded 04/30/24 10:01 Exam Constitutional Documenting provider has reviewed patient's vital signs: yes Common normals: no apparent distress, oriented x3, healthy appearing, alert and well nourished General appearance: cooperative HENMT Common normals: normocephalic, hearing grossly normal bilaterally and moist oral mucous membranes Head and scalp: normocephalic Eye Common normals: PERRL Pupil: PERRL Neck & C-Spine Common normals: full ROM General: normal visual inspection Chest Common normals: inspection of chest normal Respiratory Common normals: normal respiratory effort, no retractions and no use of accessory muscles Back & Pelvis Lumbar spine/lower back: ROM limited, pain with ROM, paraspinal muscle tenderness, paraspinal muscle spasm and straight leg raise positive right Sacroiliac joints: SI joint(s) abnormal Other: bilateral SIJ positive marge(patricks), gaenslens, thigh thrust, compression test strength 5/5 in BLE Extremity Common normals: normal to inspection Right lower extremity: hip joint Left lower extremity: knee joint Left knee: palpation (moderate to severe pain ), ROM (limited, crepitus noted. pain with medial/lateral stress testing) and other Other: no pain with internal and external rotation of right hip Neuro Common normals: oriented x3, CN's II-XII intact bilaterally, moves all extremities, no focal motor deficits, no sensory deficits noted and deep tendon reflexes 2+ bilaterally Sensorium/orientation: alert Gait (neuro): antalgic and assistive device used walker Motor exam: no movement abnormalities noted and strength abnormal Psych Common normals: mental status grossly normal, thought process normal, cooperative, affect normal, speech normal and activity/motor behavior normal Speech: normal speech Thought process: normal thought process Assessment and Plan Assessment and Plan (1) Lumbar stenosis with neurogenic claudication: (2) Sacroiliitis: (3) Chronic, continuous use of opioids: Assessment and Plan: I feel these medications are improving the patient's quality of life and allow them to tolerate activities of daily living as well as participate in recreational activity.? The patient does not report intolerable side effects. The patient is NOT opioid naive and non-pharmacologic and non-opioid treatment has failed to significantly relieve the patient's pain and improve f unctionality. The patient has a diagnosis that is related to a somatic or visceral pain etiology. ? ?? I reviewed with the patient the potential risks and side effects with the use of? opioid medications including but not limited to respiratory depression,? sedation, and even . I verified the patient has access to naloxone should? these effects occur. I advised the patient to avoid the use of any other? sedation substances including alcohol, THC, and benzodiazepines while? taking opioid medications due to the risk of compounding side effects and? detrimental outcomes. I reviewed the [employer], pain treatment agreement, urine? drug screen, and opioid start talking forms. The patient was advised to let? their family know they had Naloxone in case they would need to administer? the medication.? ?? A drug screen was completed within the last year, and no aberrancies were noted regarding their use of controlled substances. The patient understands they are subject to the terms and conditions of the pain contract that they have signed. ? ?? I have checked an [place] report on this patient today and there are no aberrancies noted in the prescribing history.? (4) Lumbar degenerative disc disease: (5) Left knee pain: (6) Myalgia, other site: Plan decrease gabapentin 100mg BID, could not tolerate higher doses repeat bilateral SIJ injection, previous injections have provided >50% improvement for 3 months continue aquatherapy, PT, and HEP as tolerated continue medications f/u 2 weeks after procedure
== END 2024-05-16 12:46 | disposition home or self-care (01) ==
PROVIDERS: PCP Family Medicine; Visit Provider Nurse Practitioner
DX: M48.062 Spinal stenosis, lumbar region with neurogenic claudication (principal); M46.1 Sacroiliitis, not elsewhere classified; Z79.891 Long term (current) use of opiate analgesic; M51.369 Other intervertebral disc degeneration, lumbar region without mention of lumbar back pain or lower extremity pain; M25.562 Pain in left knee; M79.18 Myalgia, other site
CPT/HCPCS: G0463

== ENCOUNTER 2024-05-28 10:19 | Day surgery (SDC) | payer MEDICARE, SELFPAY ==
[2024-05-28 10:47] VITALS: BP 189/82; PULSE 81; TEMP 36.8; O2SAT 93
[2024-05-28 11:24] VITALS: BP 190/96; BP 204/93; PULSE 84; O2SAT 100; O2SAT 94
[2024-05-28] MEDS: BUPIVACAINE HCL 0.25% PF 25 MG/10 ML VIAL 4 ML INJ (11:25)
[2024-05-28] MEDS: IOHEXOL 240 MG/ML - 10 ML VIAL INJ (11:25)
[2024-05-28] MEDS: LIDOCAINE HCL 2% 400 MG/20 ML MDV INJ (11:26)
[2024-05-28] MEDS: METHYLPREDNISOLONE ACETATE 40 MG/ML VIAL INJ (11:26)
--- NOTE | 2024-05-28 11:26 | W.PM.PROCNOT ---
Date of procedure: 05/28/24 Pre-op diagnosis: Pain due to bilateral sacroiliitis Post-op diagnosis: same as pre-op Procedure: Procedure: Bilateral sacroiliac joint injection Medications: Bupivacaine 0.25% 3cc, depomedrol 40mg x2 After informed consent was obtained, the patient was brought to the medical procedure unit and placed in the prone position, when a timeout was completed verifying correct patient, procedure, site, positioning, implant, and/or special equipment.? The skin overlying the area was prepped and draped in standard sterile fashion using alcohol.? A 25-gauge needle was inserted towards the left sacroiliac joint under direct fluoroscopic imaging.? Needle tip was advanced until the joint was encountered.? We instilled a total of 2 mL of solution.? The same procedure was then completed on the right side.? Postoperatively needles were removed.? The patient tolerated the procedure well without complication.? The patient reported reduction in pain symptoms postoperatively. Anesthesia: Local Surgeon: Lyn Quiñones Pathology: none sent Condition: stable Disposition: no change
== END 2024-05-28 11:35 | disposition home or self-care (01) ==
PROVIDERS: PCP Family Medicine; Visit Provider Anesthesiology
DX: M46.1 Sacroiliitis, not elsewhere classified (principal); M53.3 Sacrococcygeal disorders, not elsewhere classified
CPT/HCPCS: 27096; J0665; J1010; Q9966

== ENCOUNTER 2024-06-06 13:11 | Outpatient (OUT) | payer MEDICARE, SELFPAY ==
--- NOTE | 2024-06-06 13:33 | P.CN_ITS ---
Consult Note: HPI Data of Consult Patient: known to practice within the last 3 years Requesting Physician: Vivian Meza NP Primary Care Provider: Luis Rogers MD Consult Narrative Reason for consult: f/u Narrative: Alexa Delgado a pleasant 84 year old female presents for evaluation and management of chronic low back and bilateral SIJ pain. Patient rating pain 3- 4/10 today, increasing to 5/10 with standing walking and activity. pain improved with lying down, heat, and medications. Patient has found significant improvement in pain and functional ability with past procedures and current medication regimen. currently taking gabapentin 100mg BID. recently underwent bilateral SIJ injection with >50% improvement ongoing. cc:: CC: Vivian Meza NP Review of Systems ROS Status of ROS 10 or more systems reviewed and unremark able except as noted in history and below Musculoskeletal Reports: back pain and joint pain PFSH PFSH Medical History Pelvic fracture ?S32.9XXA - Fracture of unspecified parts of lumbosacral spine and pelvis, initial encounter for closed fracture (ICD-10) TIA (transient ischemic attack) ?G45.9 - Transient cerebral ischemic attack, unspecified (ICD-10) Closed fracture of coccyx ?S32.2XXA - Fracture of coccyx, initial encounter for closed fracture (ICD- 10) Osteoarthritis ?M19.90 - Unspecified osteoarthritis, unspecified site (ICD-10) H/O pyelonephritis ?Z87.448 - Personal history of other diseases of urinary system (ICD-10) Syncope ?R55 - Syncope and collapse (ICD-10) Generalized weakness ?R53.1 - Weakness (ICD-10) Dizziness ?R42 - Dizziness and giddiness (ICD-10) Surgical History Pain management ?R52 - Pain, unspecified (ICD-10) H/O bladder repair surgery ?Z98.890 - Other specified postprocedural states (ICD-10) H/O breast surgery ?Z98.890 - Other specified postprocedural states (ICD-10) H/O knee surgery ?Z98.890 - Other specified postprocedural states (ICD-10) H/O foot surgery ?Z98.890 - Other specified postprocedural states (ICD-10) History of right knee joint replacement ?Z96.651 - Presence of right artificial knee joint (ICD-10) History of YAG laser capsulotomy of lens ?Z98.49 - Cataract extraction status, unspecified eye (ICD-10) Hx laparoscopic cholecystectomy ?Z90.49 - Acquired absence of other specified parts of digestive tract (ICD- 10) H/O: hysterectomy ?Z90.710 - Acquired absence of both cervix and uterus (ICD-10) History of arthroscopic knee surgery ?Z98.890 - Other specified postprocedural states (ICD-10) H/O discectomy ?Z98.890 - Other specified postprocedural states (ICD-10) H/O dilation and curettage ?Z98.890 - Other specified postprocedural states (ICD-10) History of appendectomy ?Z90.49 - Acquired absence of other specified parts of digestive tract (ICD- 10) Hx of tonsillectomy ?Z90.89 - Acquired absence of other organs (ICD-10) Family History Other Family history of CHF (congestive heart failure) Social History Within the past year, how often did you have a drink containing alcohol: never Score interpretation: A score less than 3 is consistent with normal alcohol consumption. Smoking status: Never smoker Non-prescribed substance use: denies use Previous occupational history: Retired, , lives at home Highest level of school completed/degree received: high school graduate Are you now , , , , never or living with a partner: In a typical week, how many times do you talk on the telephone with family, friends, or neighbors: once per week How often do you get together with friends or relatives: once per week How often do you attend temple or islam services: 1-3 times per year Little interest or pleasure in doing things: not at all Feeling down, depressed, or hopeless: not at all Feel stressed/tense/nervous/anxious/difficulty sleeping: not at all Gender Identity: female Meds Home Medications and Allergies Home Medications ?Medication ?Instructions ?Recorded ?Confirmed ?Type calcium 600 mg (as carbonate)-vit 1 tab PO DAILY 07/26/22 11/04/23 History D3 10 mcg (400 unit)-minerals tablet capsaicin 0.025 % topical patch 1 patch topical DAILY pain 07/26/22 05/28/24 History (Salonpas-Hot) citalopram 10 mg tablet 10 mg PO DAILY 07/26/22 05/28/24 History fexofenadine 180 mg tablet 180 mg PO DAILY 07/26/22 05/28/24 History (Benita Allergy) flaxseed oil 1,000 mg capsule 1,000 mg PO DAILY 07/26/22 05/28/24 History glucosamine 750 hc-hzvliz-xhe 2-C 1 tab PO DAILY 07/26/22 04/30/24 History 30 mg-D3 1,000 unit-maida 1 mg tablet (Jtlpcxmbmdq-Dblnbxqtwng-DJB + vitD) isosorbide mononitrate 30 mg 30 mg PO DAILY 07/26/22 05/28/24 History tablet,extended release 24 hr liothyronine 25 mcg tablet 25 mcg PO DAILY 07/26/22 05/28/24 History (Cytomel) melatonin 3 mg capsule 3 mg PO DAILY 07/26/22 05/28/24 History metoprolol succinate 50 mg 50 mg PO BID 07/26/22 05/28/24 History tablet,extended release 24 hr multivitamin 1 tab PO DAILY 07/26/22 05/28/24 History nitroglycerin 0.4 mg sublingual 0.4 mg sublingual Q5M PRN chest 07/26/22 05/28/24 History tablet pain cyclobenzaprine 10 mg tablet 10 mg PO BEDTIME 04/20/23 05/28/24 History ferrous sulfate 325 mg (65 mg 325 mg PO BID 09/02/23 05/28/24 History iron) tablet diclofenac sodium 75 mg 75 mg PO BID 10/13/23 05/28/24 History tablet,delayed release levothyroxine 75 mcg tablet 75 mcg PO QAM 10/13/23 05/28/24 History pantoprazole 40 mg tablet,delayed 40 mg PO DAILY #30 tabs 10/13/23 05/28/24 Rx release (Protonix) calcium 600 mg (as carbonate)-vit 1 tab PO BID 11/04/23 05/28/24 History D3 20 mcg (800 unit) chewable tablet (Caltrate plus D) gabapentin 100 mg capsule 100 mg PO BID #60 caps 01/05/24 05/28/24 Rx hydrocodone 5 mg-acetaminophen 325 1 tab PO TID PRN pain #90 tabs 01/05/24 05/28/24 Rx mg tablet hydrocodone 5 mg-acetaminophen 325 1 tab PO TID PRN pain #90 tabs 05/16/24 05/28/24 Rx mg tablet Allergies Allergy/AdvReac Type Severity Reaction Status Date / Time Penicillins Allergy Severe Hives Verified 05/28/24 10:54 codeine AdvReac Intermediate Dizziness Verified 05/28/24 10:54 fluconazole (From Diflucan) AdvReac Intermediate Hives Verified 05/28/24 10:54 quinine (From Quinamm) AdvReac Mild Headache Verified 05/28/24 10:54 pregabalin (From Lyrica) AdvReac Dizziness Verified 05/28/24 10:54 propoxyphene (From Darvon) AdvReac Headache Verified 05/28/24 10:54 decongest multi-action AdvReac Mild Headache Uncoded 05/28/24 10:54 Exam Constitutional Documenting provider has reviewed patient's vital signs: yes Common normals: no apparent distress, oriented x3, healthy appearing, alert and well nourished General appearance: cooperative HENMT Common normals: normocephalic, hearing grossly normal bilaterally and moist oral mucous membranes Head and scalp: normocephalic Eye Common normals: PERRL Pupil: PERRL Neck & C-Spine Common normals: full ROM General: normal visual inspection Chest Common normals: inspection of chest normal Respiratory Common normals: normal respiratory effort, no retractions and no use of accessory muscles Back & Pelvis Lumbar spine/lower back: ROM limited, pain with ROM and straight leg raise negative bilaterally Sacroiliac joints: SI joints normal Other: bilateral SIJ negative marge(patricks), gaenslens, thigh thrust, compression test strength 5/5 in BLE Extremity Common normals: normal to inspection Right upper extremity: hand and digits Left upper extremity: hand and digits Right lower extremity: hip joint Left lower extremity: knee joint Left knee: palpation (moderate to severe pain ), ROM (limited, crepitus noted. pain with medial/lateral stress testing) and other Other: no pain with internal and external rotation of right hip intermittent locking up of bilateral thumbs, notable joint deformation with enlarged joints Neuro Common normals: oriented x3, CN's II-XII intact bilaterally, moves all extremities, no focal motor deficits, no sensory deficits noted and deep tendon reflexes 2+ bilaterally Sensorium/orientation: alert Gait (neuro): antalgic and assistive device used walker Motor exam: no movement abnormalities noted and strength abnormal Psych Common normals: mental status grossly normal, thought process normal, cooperative, affect normal, speech normal and activity/motor behavior normal Speech: normal speech Thought process: normal thought process Assessment and Plan Assessment and Plan (1) Lumbar stenosis with neurogenic claudication: (2) Sacroiliitis: (3) Chronic, continuous use of opioids: Assessment and Plan: I feel these medications are improving the patient's quality of life and allow them to tolerate activities of daily living as well as participate in recreational activity.? The patient does not report intolerable side effects. The patient is NOT opioid naive and non-pharmacologic and non-opioid treatment has failed to significantly relieve the patient's pain and improve functionality. The patient has a diagnosis that is related to a somatic or vis ceral pain etiology. ? ?? I reviewed with the patient the potential risks and side effects with the use of? opioid medications including but not limited to respiratory depression,? sedation, and even . I verified the patient has access to naloxone should? these effects occur. I advised the patient to avoid the use of any other? sedation substances including alcohol, THC, and benzodiazepines while? taking opioid medications due to the risk of compounding side effects and? detrimental outcomes. I reviewed the PROJECT ADMINISTRATIVE ASSISTANT, pain treatment agreement, urine? drug screen, and opioid start talking forms. The patient was advised to let? their family know they had Naloxone in case they would need to administer? the medication.? ?? A drug screen was completed within the last year, and no aberrancies were noted regarding their use of controlled substances. The patient understands they are subject to the terms and conditions of the pain contract that they have signed. ? ?? I have checked an [facility] report on this patient today and there are no aberrancies noted in the prescribing history.? (4) Lumbar degenerative disc disease: (5) Left knee pain: (6) Myalgia, other site: (7) Bilateral thumb pain: Plan continue aquatherapy, PT, and HEP as tolerated continue current medications f/u with Dr Quiñones for consideration of bilateral trigger thumb injection
== END 2024-06-06 13:12 | disposition home or self-care (01) ==
LOC: PM 13:11
PROVIDERS: PCP Family Medicine; Visit Provider Nurse Practitioner
DX: M48.062 Spinal stenosis, lumbar region with neurogenic claudication (principal); M46.1 Sacroiliitis, not elsewhere classified; Z79.891 Long term (current) use of opiate analgesic; M51.369 Other intervertebral disc degeneration, lumbar region without mention of lumbar back pain or lower extremity pain; M25.562 Pain in left knee; M79.18 Myalgia, other site; M79.645 Pain in left finger(s); M79.644 Pain in right finger(s)
CPT/HCPCS: G0463

== ENCOUNTER 2024-06-07 14:18 | Outpatient (OUT) | payer MEDICARE, SELFPAY ==
--- NOTE | 2024-06-07 15:48 | PM.WCHP ---
Wound Care H&P: HPI History of Present Illness Narrative: Mrs. Delgado is a pleasant 84-year-old female with history of previous stroke with left-sided hemiparesis who presents for routine toenail care. She denies symptoms of claudication. She states her toenails are painful when elongated but pain is relieved when the toenails are trimmed. She is unable to reach her toes and does not have the dexterity to trim them due to her previous stroke. PFSH PFSH Medical History Pelvic fracture ?S32.9XXA - Fracture of unspecified parts of lumbosacral spine and pelvis, initial encounter for closed fracture (ICD-10) TIA (transient ischemic attack) ?G45.9 - Transient cerebral ischemic attack, unspecified (ICD-10) Closed fracture of coccyx ?S32.2XXA - Fracture of coccyx, initial encounter for closed fracture (ICD-10) Osteoarthritis ?M19.90 - Unspecified osteoarthritis, unspecified site (ICD-10) H/O pyelonephritis ?Z87.448 - Personal history of other diseases of urinary system (ICD-10) Syncope ?R55 - Syncope and collapse (ICD-10) Generalized weakness ?R53.1 - Weakness (ICD-10) Dizziness ?R42 - Dizziness and giddiness (ICD-10) Surgical History Pain management ?R52 - Pain, unspecified (ICD-10) H/O bladder repair surgery ?Z98.890 - Other specified postprocedural states (ICD-10) H/O breast surgery ?Z98.890 - Other specified postprocedural states (ICD-10) H/O knee surgery ?Z98.890 - Other specified postprocedural states (ICD-10) H/O foot surgery ?Z98.890 - Other specified postprocedural states (ICD-10) History of right knee joint replacement ?Z96.651 - Presence of right artificial knee joint (ICD-10) History of YAG laser capsulotomy of lens ?Z98.49 - Cataract extraction status, unspecified eye (ICD-10) Hx laparoscopic cholecystectomy ?Z90.49 - Acquired absence of other specified parts of digestive tract (ICD-10) H/O: hysterectomy ?Z90.710 - Acquired absence of both cervix and uterus (ICD-10) History of arthroscopic knee surgery ?Z98.890 - Other specified postprocedural states (ICD-10) H/O discectomy ?Z98.890 - Other specified postprocedural states (ICD-10) H/O dilation and curettage ?Z98.890 - Other specified postprocedural states (ICD-10) History of appendectomy ?Z90.49 - Acquired absence of other specified parts of digestive tract (ICD-10) Hx of tonsillectomy ?Z90.89 - Acquired absence of other organs (ICD-10) Family History Other Family history of CHF (congestive heart failure) Social History Within the past year, how often did you have a drink containing alcohol: never Score interpretation: A score less than 3 is consistent with normal alcohol consumption. Smoking status: Never smoker Non-prescribed substance use: denies use Previous occupational history: Retired, , lives at home Highest level of school completed/degree received: high school graduate Are you now , , , , never or living with a partner: In a typical week, how many times do you talk on the telephone with family, friends, or neighbors: once per week How often do you get together with friends or relatives: once per week How often do you attend nondenominational or congregational services: 1-3 times per year Little interest or pleasure in doing things: not at all Feeling down, depressed, or hopeless: not at all Feel stressed/tense/nervous/anxious/difficulty sleeping: not at all Gender Identity: female Meds Home Medications and Allergies Home Medications ?Medication ?Instructions ?Recorded ?Confirmed ?Type calcium 600 mg (as carbonate)-vit 1 tab PO DAILY 07/26/22 11/04/23 History D3 10 mcg (400 unit)-minerals tablet capsaicin 0.025 % topical patch 1 patch topical DAILY pain 07/26/22 05/28/24 History (Salonpas-Hot) citalopram 10 mg tablet 10 mg PO DAILY 07/26/22 05/28/24 History fexofenadine 180 mg tablet 180 mg PO DAILY 07/26/22 05/28/24 History (Benita Allergy) flaxseed oil 1,000 mg capsule 1,000 mg PO DAILY 07/26/22 05/28/24 History glucosamine 750 ar-gadfes-xff 2-C 1 tab PO DAILY 07/26/22 04/30/24 History 30 mg-D3 1,000 unit-maida 1 mg tablet (Lvnbpvzwcyi-Dvgzqroxshm-YZW + vitD) isosorbide mononitrate 30 mg 30 mg PO DAILY 07/26/22 05/28/24 History tablet,extended release 24 hr liothyronine 25 mcg tablet 25 mcg PO DAILY 07/26/22 05/28/24 History (Cytomel) melatonin 3 mg capsule 3 mg PO DAILY 07/26/22 05/28/24 History metoprolol succinate 50 mg 50 mg PO BID 07/26/22 05/28/24 History tablet,extended release 24 hr multivitamin 1 tab PO DAILY 07/26/22 05/28/24 History nitroglycerin 0.4 mg sublingual 0.4 mg sublingual Q5M PRN chest 07/26/22 05/28/24 History tablet pain cyclobenzaprine 10 mg tablet 10 mg PO BEDTIME 04/20/23 05/28/24 History ferrous sulfate 325 mg (65 mg 325 mg PO BID 09/02/23 05/28/24 History iron) tablet diclofenac sodium 75 mg 75 mg PO BID 10/13/23 05/28/24 History tablet,delayed release levothyroxine 75 mcg tablet 75 mcg PO QAM 10/13/23 05/28/24 History pantoprazole 40 mg tablet,delayed 40 mg PO DAILY #30 tabs 10/13/23 05/28/24 Rx release (Protonix) calcium 600 mg (as carbonate)-vit 1 tab PO BID 11/04/23 05/28/24 History D3 20 mcg (800 unit) chewable tablet (Caltrate plus D) gabapentin 100 mg capsule 100 mg PO BID #60 caps 01/05/24 05/28/24 Rx hydrocodone 5 mg-acetaminophen 325 1 tab PO TID PRN pain #90 tabs 01/05/24 05/28/24 Rx mg tablet hydrocodone 5 mg-acetaminophen 325 1 tab PO TID PRN pain #90 tabs 05/16/24 05/28/24 Rx mg tablet Allergies Allergy/AdvReac Type Severity Reaction Status Date / Time Penicillins Allergy Severe Hives Verified 05/28/24 10:54 codeine AdvReac Intermediate Dizziness Verified 05/28/24 10:54 fluconazole (From Diflucan) AdvReac Intermediate Hives Verified 05/28/24 10:54 quinine (From Quinamm) AdvReac Mild Headache Verified 05/28/24 10:54 pregabalin (From Lyrica) AdvReac Dizziness Verified 05/28/24 10:54 propoxyphene (From Darvon) AdvReac Headache Verified 05/28/24 10:54 decongest multi-action AdvReac Mild Headache Uncoded 05/28/24 10:54 Exam Narrative: Exam Narrative: Dermatologic: Fungal mycotic toenails of toes 2 through 5 on each foot. Skin is shiny and atrophic. Skin is diffusely dry and thin. Hallux toenails are absent bilaterally. Neurologic: Decreased tone on the left. Protective sensation is intact. Vascular: Nonpalpable PT pulses bilaterally. DP pulses are 1/4 bilaterally. Varicosities are present bilaterally. Feet are cool to the touch. Digital hair is absent bilaterally. Musculoskeletal: No gross deformity. Strength and range of motion is within normal limits. Assessment and Plan Assessment and Plan (1) Ambulatory dysfunction: (2) PAD (peripheral artery disease): (3) Tinea unguium: (4) Gait instability: (5) Diminished pulses in lower extremity: (6) Disorder of nail due to another disorder: Plan The patient is a pleasant 84-year-old female with history of prior stroke who presents for routine nail care. Nails were sharply debrided without incident. She should follow-up in 3 months for routine nail care, sooner if any issues arise. Acute Procedures Nail Procedure Nail Procedure Time out: Yes Nail procedure: other (debridement nails 2-5 on both feet) Number of affected nails: 8 Location (toes): left and right Procedure successful: Yes Patient tolerated procedure: well and no complications Additional comments: Toenails 2 through 5 on each foot were sharply debrided with nail nippers without incident. The patient noted pain relief postprocedure. Podiatry Nail Debridement Class B Findings Absent posterior tibial pulse: left Advanced trophic changes as evidenced by any three of the following: decreased hair growth, nail changes (thickening) and skin texture (thin or shiny) Class C Findings Claudication: No Temperature changes: Yes Edema: Yes Nail debridement paresthesia (abnormal spontaneous sensations in the feet): No Burning: No Qualifies If: Qualifiers If:: A patient qualifies for nail debridement if they have: 1 class A finding (Q7) 2 class B findings (Q8) OR 1 class B & 2 class C findings in addition to a primary condition (Q9)
== END 2024-06-07 14:19 | disposition home or self-care (01) ==
LOC: WC 14:18
PROVIDERS: PCP Family Medicine; Visit Provider Physician Assistant
DX: R26.2 Difficulty in walking, not elsewhere classified (principal); I73.9 Peripheral vascular disease, unspecified; B35.1 Tinea unguium; R26.89 Other abnormalities of gait and mobility; R09.89 Other specified symptoms and signs involving the circulatory and respiratory systems; L60.8 Other nail disorders
CPT/HCPCS: 11721

== ENCOUNTER 2024-06-18 12:12 | Outpatient (OUT) | payer MEDICARE, SELFPAY ==
--- NOTE | 2024-06-18 12:57 | PM.CN ---
Consult Note: HPI Data of Consult Patient: known to practice within the last 3 years Consult date: 06/18/24 Requesting Physician: Lyn Quiñones MD Primary Care Provider: Luis Rogers MD Consult Narrative Reason for consult: bilateral thumb pain Narrative: 84yof who presents for in office injection. continues to have significant bilateral thumb pain. would like to proceed with right thumb injection. cc:: CC: Lyn Quiñones MD Review of Systems ROS Status of ROS 10 or more systems reviewed and unremarkable except as noted in history and below PFSH PFSH Medical History Chest pain, rule out acute myocardial infarction ?R07.9 - Chest pain, unspecified (ICD-10) CAD (coronary artery disease) ?I25.10 - Atherosclerotic heart disease of [place] coronary artery without angina pectoris (ICD-10) Hypothyroid ?E03.9 - Hypothyroidism, unspecified (ICD-10) Hypertension ?I10 - Essential (primary) hypertension (ICD-10) Pelvic fracture ?S32.9XXA - Fracture of unspecified parts of lumbosacral spine and pelvis, initial encounter for closed fracture (ICD-10) TIA (transient ischemic attack) ?G45.9 - Transient cerebral ischemic attack, unspecified (ICD-10) Closed fracture of coccyx ?S32.2XXA - Fracture of coccyx, initial encounter for closed fracture (ICD-10) Osteoarthritis ?M19.90 - Unspecified osteoarthritis, unspecified site (ICD-10) H/O pyelonephritis ?Z87.448 - Personal history of other diseases of urinary system (ICD-10) Syncope ?R55 - Syncope and collapse (ICD-10) Generalized weakness ?R53.1 - Weakness (ICD-10) Dizziness ?R42 - Dizziness and giddiness (ICD-10) Surgical History Pain management ?R52 - Pain, unspecified (ICD-10) H/O bladder repair surgery ?Z98.890 - Other specified postprocedural states (ICD-10) H/O breast surgery ?Z98.890 - Other specified postprocedural states (ICD-10) H/O knee surgery ?Z98.890 - Other specified postprocedural states (ICD-10) H/O foot surgery ?Z98.890 - Other specified postprocedural states (ICD-10) History of right knee joint replacement ?Z96.651 - Presence of right artificial knee joint (ICD-10) History of YAG laser capsulotomy of lens ?Z98.49 - Cataract extraction status, unspecified eye (ICD-10) Hx laparoscopic cholecystectomy ?Z90.49 - Acquired absence of other specified parts of digestive tract (ICD-10) H/O: hysterectomy ?Z90.710 - Acquired absence of both cervix and uterus (ICD-10) History of arthroscopic knee surgery ?Z98.890 - Other specified postprocedural states (ICD-10) H/O discectomy ?Z98.890 - Other specified postprocedural states (ICD-10) H/O dilation and curettage ?Z98.890 - Other specified postprocedural states (ICD-10) History of appendectomy ?Z90.49 - Acquired absence of other specified parts of digestive tract (ICD-10) Hx of tonsillectomy ?Z90.89 - Acquired absence of other organs (ICD-10) Family History Other Family history of CHF (congestive heart failure) Social History Within the past year, how often did you have a drink containing alcohol: never Score interpretation: A score less than 3 is consistent with normal alcohol consumption. Smoking status: Never smoker Non-prescribed substance use: denies use Previous occupational history: Retired, , lives at home Highest level of school completed/degree received: high school graduate Are you now , , , , never or living with a partner: In a typical week, how many times do you talk on the telephone with family, friends, or neighbors: once per week How often do you get together with friends or relatives: once per week How often do you attend synagogue or latter day services: 1-3 times per year Little interest or pleasure in doing things: not at all Feeling down, depressed, or hopeless: not at all Feel stressed/tense/nervous/anxious/difficulty sleeping: not at all Gender Identity: female Meds Home Medications and Allergies Home Medications ?Medication ?Instructions ?Recorded ?Confirmed ?Type calcium 600 mg (as carbonate)-vit 1 tab PO DAILY 07/26/22 11/04/23 History D3 10 mcg (400 unit)-minerals tablet capsaicin 0.025 % topical patch 1 patch topical DAILY pain 07/26/22 05/28/24 History (Salonpas-Hot) citalopram 10 mg tablet 10 mg PO DAILY 07/26/22 05/28/24 History fexofenadine 180 mg tablet 180 mg PO DAILY 07/26/22 05/28/24 History ([facility] Allergy) flaxseed oil 1,000 mg capsule 1,000 mg PO DAILY 07/26/22 05/28/24 History glucosamine 750 gj-pumtny-acm 2-C 1 tab PO DAILY 07/26/22 04/30/24 History 30 mg-D3 1,000 unit-maida 1 mg tablet (Ogccolcwacl-Twjqxhfhkqz-SZZ + vitD) isosorbide mononitrate 30 mg 30 mg PO DAILY 07/26/22 05/28/24 History tablet,extended release 24 hr liothyronine 25 mcg tablet 25 mcg PO DAILY 07/26/22 05/28/24 History (Cytomel) melatonin 3 mg capsule 3 mg PO DAILY 07/26/22 05/28/24 History metoprolol succinate 50 mg 50 mg PO BID 07/26/22 05/28/24 History tablet,extended release 24 hr multivitamin 1 tab PO DAILY 07/26/22 05/28/24 History nitroglycerin 0.4 mg sublingual 0.4 mg sublingual Q5M PRN chest 07/26/22 05/28/24 History tablet pain cyclobenzaprine 10 mg tablet 10 mg PO BEDTIME 04/20/23 05/28/24 History ferrous sulfate 325 mg (65 mg 325 mg PO BID 09/02/23 05/28/24 History iron) tablet diclofenac sodium 75 mg 75 mg PO BID 10/13/23 05/28/24 History tablet,delayed release levothyroxine 75 mcg tablet 75 mcg PO QAM 10/13/23 05/28/24 History pantoprazole 40 mg tablet,delayed 40 mg PO DAILY #30 tabs 10/13/23 05/28/24 Rx release (Protonix) calcium 600 mg (as carbonate)-vit 1 tab PO BID 11/04/23 05/28/24 History D3 20 mcg (800 unit) chewable tablet (Caltrate plus D) gabapentin 100 mg capsule 100 mg PO BID #60 caps 01/05/24 05/28/24 Rx hydrocodone 5 mg-acetaminophen 325 1 tab PO TID PRN pain #90 tabs 01/05/24 05/28/24 Rx mg tablet hydrocodone 5 mg-acetaminophen 325 1 tab PO TID PRN pain #90 tabs 05/16/24 05/28/24 Rx mg tablet Allergies Allergy/AdvReac Type Severity Reaction Status Date / Time Penicillins Allergy Severe Hives Verified 05/28/24 10:54 codeine AdvReac Intermediate Dizziness Verified 05/28/24 10:54 fluconazole (From Diflucan) AdvReac Intermediate Hives Verified 05/28/24 10:54 quinine (From Quinamm) AdvReac Mild Headache Verified 05/28/24 10:54 pregabalin (From Lyrica) AdvReac Dizziness Verified 05/28/24 10:54 propoxyphene (From Darvon) AdvReac Headache Verified 05/28/24 10:54 decongest multi-action AdvReac Mild Headache Uncoded 05/28/24 10:54 Exam Narrative Exam Narrative: Psych-alert and oriented x 3.? Attentive and appropriate, constitutionally normal, displays normal mood and affect per situation.? There are no obvious deficits in memory, reasoning, or intellect.? Skin-no obvious rashes, bruising, erythema noted to the patient's area of pain. Extremities- extremities are warm with minimal edema and palpable pulses. Tender to palpation over right hand. Coordination remains intact.? Gait remains antalgic. Assessment and Plan Assessment and Plan (1) Bilateral thumb pain: Plan 84yof who presents for in office injection. continues to have bilateral thumb pain, would like to proceed with right thumb injection. Procedure: Right thumb injection, first CMC joint Medications: Bupivacaine 0.25% 1cc, depomedrol 40mg I explained the details of the procedure to the patient including the risks, benefits and alternatives. We had an informed discussion and the patient verbalized understanding and signed the consent form. All questions were answered appropriately.? A time out was performed.? After obtaining a comfortable seated position, the right thumb was prepped with alcohol x3. A syringe containing the above medication was attached to a 27 gauge, 1.5 inch needle under strict aseptic technique. The needle was then advanced through the subcutaneous tissue towards the joint space.? The contents of the syringe were gently injected without any resistance. The needle was removed and pressure was applied to the injection site to decrease the incidence of ecchymosis and hematoma formation.? A sterile bandage was applied.
== END 2024-06-18 12:13 | disposition home or self-care (01) ==
LOC: PM 12:12
PROVIDERS: PCP Family Medicine; Visit Provider Anesthesiology
DX: M79.644 Pain in right finger(s) (principal); M79.645 Pain in left finger(s)
CPT/HCPCS: 20605; J0665; J1010

== ENCOUNTER 2024-07-23 13:05 | Emergency (ER) | payer MEDICARE, SELFPAY ==
[2024-07-23 13:07] VITALS: BP 177/83; PULSE 79; TEMP 36.4; O2SAT 95; BMI 26.6
--- NOTE | 2024-07-23 13:24 | CT_ITS ---
The [address] [address] Patient Name: KARINA CORMIER MRN: [id number] date: 1940 Sex: F Assigned Patient Location: ED.MAIN Current Patient Location: ED.MAIN Accession/Order Number: [id number] Exam Date: 07/23/2024 14:38 Report Date: 07/23/2024 14:42 At the request of: PAULINE FERRELL Procedure: CT cervical spine wo con CT cervical spine wo con 07/23/2024 2:11 PM SIGN AND SYMPTOMS: Fall, left shoulder pain and left forearm pain, right knee pain TECHNIQUE: Multi detector CT axial slices of the cervical spine were obtained without IV contrast. Volumetric acquisition sagittal, coronal, and 3-D reconstructions were performed and reviewed. CT was performed with one or more of the following dose reduction techniques: Automated exposure control, adjustment of the mA and/or kV according to patient size, or use of iterative reconstruction technique. COMPARISON: 11/29/2020. FINDINGS: There is preservation of the vertebral body heights and intervertebral discs. No fractures or dislocations are seen. There is 4 mm of anterolisthesis of C7 upon T1. There is accompanying facet hypertrophy. The facets are partially fused at C3-C4. The craniocervical junction is within normal limits. There is severe disc height loss at C5-C6 and C6-C7. The prevertebral soft tissues are within normal limits. The paraspinous soft tissues are within normal limits. There is scarring in the lung apices. Atherosclerotic changes are noted in the carotid bifurcations. CT/CT cervical spine wo con IMPRESSION: No fracture. Degenerative changes are noted as above with 4 mm of anterolisthesis of C7 upon T1 secondary to facet hypertrophy. This is unchanged when compared to the previous MRI. Impression dictated by: Yovany Patel M.D. 07/23/2024 2:42 PM Dictation Location: [place] [address] Electronically authenticated by: [id number] Y Date: 07/23/2024 14:42
--- NOTE | 2024-07-23 13:24 | CT_ITS ---
The [address] [address] Patient Name: KARINA CORMIER MRN: [id number] date: 1940 Sex: F Assigned Patient Location: ED.MAIN Current Patient Location: ED.MAIN Accession/Order Number: [id number] Exam Date: 07/23/2024 14:31 Report Date: 07/23/2024 14:38 At the request of: PAULINE FERRELL Procedure: CT head/brain wo con CT head/brain wo con 07/23/2024 2:11 PM SIGNS AND SYMPTOMS: Fall, left shoulder pain and left forearm pain TECHNIQUE:Multi-detector CT axial slices of the brain were obtained without IV contrast. CT was performed with one or more of the following dose reduction techniques: Automated exposure control, adjustment of the mA and/or kV according to patient size, or use of iterative reconstruction technique. COMPARISON: 08/09/2022 FINDINGS: There is no shift of the midline structures, acute intracranial bleeding, mass effects, or evidence of acute ischemia. There is gliosis and encephalomalacia in the left temporal lobes suggesting a remote infarct. Periventricular and subcortical white matter hypoattenuation is noted consistent with chronic microvascular change. Atherosclerotic changes are noted in the intracranial segments of the internal carotid arteries. The ventricular system is normal in size. The brainstem and the cerebellum are unremarkable. The visualized intraorbital contents and the infratemporal soft tissues show no acute abnormality. There is chronic appearing mucosal thickening in the right sphenoid sinus. The osseous structures in the skull base and the calvarium show no abnormality. CT/CT head/brain wo con IMPRESSION: No acute intracranial pathology. 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 Impression dictated by: Yovany Patel M.D. 07/23/2024 2:38 PM Dictation Location: [place] [address] Electronically authenticated by: [id number] Y Date: 07/23/2024 14:38
--- NOTE | 2024-07-23 13:24 | CT_ITS ---
[place] [id number] Patient Name: KARINA CORMIER MRN: [id number] date: 1940 Sex: F Assigned Patient Location: ED.MAIN Current Patient Location: ED.MAIN Accession/Order Number: [id number] Exam Date: 07/23/2024 14:42 Report Date: 07/23/2024 14:46 At the request of: PAULINE FERRELL Procedure: CT pelvis wo con CT pelvis wo con 07/23/2024 2:11 PM SIGNS AND SYMPTOMS: Fall, pain in right knee TECHNIQUE: Multidetector ct axial images of the abdomen and pelvis were obtained without IV contrast. Multiplanar reformats were performed and reviewed to further define anatomy and possible pathology. CT was performed with one or more of the following dose reduction techniques: Automated exposure control, adjustment of the mA and/or kV according to patient size, or use of iterative reconstruction technique. COMPARISON: None. FINDINGS: Reproductive Organs: No pelvic masses. Ureters: Within normal limits. Bladder: Within normal limits. Bowel: Normal caliber. Mesenteric Lymph Nodes: No enlarged mesenteric lymph nodes. Peritoneum: No ascites or free air, no fluid collection. Vessels: Atherosclerotic changes are noted in the abdominal aorta. Retroperitoneum: Within normal limits. Abdominal Wall: Within normal limits. Bones: There is severe disc height loss at L3-L4 and L4-5 with fusion across the L5-S1 intervertebral disc. Degenerative changes are noted in the sacroiliac joints. Degenerative changes are noted in the hips. There is evidence of a remote fracture of the left superior-inferior pubic rami. There is enthesophyte formation along the ischial tuberosities. CT/CT pelvis wo con IMPRESSION: No fracture or dislocation. Degenerative changes are noted as above. Impression dictated by: Yovany Patel M.D. 07/23/2024 2:46 PM Dictation Location: [facility] Electronically authenticated by: [id number] Y Date: 07/23/2024 14:46
--- NOTE | 2024-07-23 13:24 | XR_ITS ---
The [place] [id number] Patient Name: KARINA CORMIER MRN: [id number] date: 1940 Sex: F Assigned Patient Location: ED.MAIN Current Patient Location: ED.MAIN Accession/Order Number: [id number] Exam Date: 07/23/2024 14:46 Report Date: 07/23/2024 14:46 At the request of: PAULINE FERRELL Procedure: XR knee RT 3V XR knee RT 3V 07/23/2024 2:11 PM SIGNS AND SYMPTOMS: ^Pain, fall PROTOCOL: Frontal, lateral, and oblique radiographs of the left knee COMPARISON: None FINDINGS: 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 There is no evidence of fracture or hardware complication. No joint effusion or soft tissue swelling. XR/XR knee RT 3V IMPRESSION: No fracture. Impression dictated by: Yovany Patel M.D. 07/23/2024 2:46 PM Dictation Location: [id number] Electronically authenticated by: [id number] Y Date: 07/23/2024 14:46
--- NOTE | 2024-07-23 13:24 | XR_ITS ---
The [place] [id number] Patient Name: KARINA CORMIER MRN: [id number] date: 1940 Sex: F Assigned Patient Location: ED.MAIN Current Patient Location: ED.MAIN Accession/Order Number: [id number] Exam Date: 07/23/2024 14:47 Report Date: 07/23/2024 14:47 At the request of: PAULINE FERRELL Procedure: XR forearm LT 2V XR forearm LT 2V 07/23/2024 2:11 PM SIGNS AND SYMPTOMS: Fall, left forearm pain PROTOCOL: Frontal and lateral radiographs of the left forearm COMPARISON: None FINDINGS: The bones are in anatomic alignment. There is no evidence of acute displaced fracture. 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 Degenerative changes are noted at the first carpometacarpal junction. XR/XR forearm LT 2V IMPRESSION: No fracture or dislocation. Impression dictated by: Yovany Patel M.D. 07/23/2024 2:47 PM Dictation Location: [place] [address] Electronically authenticated by: [id number] Y Date: 07/23/2024 14:47
--- NOTE | 2024-07-23 13:24 | XR_ITS ---
The [place] [id number] Patient Name: KARINA CORMIER MRN: [id number] date: 1940 Sex: F Assigned Patient Location: ED.MAIN Current Patient Location: ED.MAIN Accession/Order Number: [id number] Exam Date: 07/23/2024 14:47 Report Date: 07/23/2024 14:48 At the request of: PAULINE FERRELL Procedure: XR shoulder LT min 2V XR shoulder LT min 2V 07/23/2024 2:11 PM SIGNS AND SYMPTOMS: ^Pain, fall PROTOCOL: Frontal, Grashey, and scapular Y views of the left shoulder COMPARISON: None FINDINGS: Mild hypertrophic changes are noted in the acromioclavicular joint. There is mild narrowing of the left glenohumeral joint. There is calcification along the rotator interval suggesting calcific tendinosis. There is subcortical cystic change in the greater tuberosity of the left humeral head. Degenerative changes are noted in the cervical spine and thoracic spine atherosclerotic changes are noted in the thoracic aorta. XR/XR shoulder LT min 2V IMPRESSION: No fracture or dislocation. Degenerative changes are noted in the left shoulder with findings suggesting underlying calcific tendinosis. Impression dictated by: Yovany Patel M.D. 07/23/2024 2:48 PM Dictation Location: [place] [address] Electronically authenticated by: [id number] Y Date: 07/23/2024 14:48
--- NOTE | 2024-07-23 13:25 | ED.FALL1 ---
HPI HPI - Fall General Chief Complaint: Fall Stated Complaint: FALL Time Seen by Provider: 07/23/24 13:17 Source: patient Mode of arrival: ambulance Limitations: no limitations History of Present Illness HPI Narrative: 84 year old female presents to the ED for pain to her left shoulder, right knee, hips s/p trip and fall today. She tripped on a ramp while using her walker. states she struck the left side of her face. Denies LOC, vision changes, dizziness, N/V. Denies SOB, change in bowel and/or bladder control. Denies pain to her head, neck, back, chest, abdomen. She has skin tears to her right forearm and left wrist area. Abrasions to left great toe and 5th digit of right hand. Tetanus status is unknown. Related Data Home Medications ?Medication ?Instructions ?Recorded ?Confirmed calcium 600 mg (as carbonate)-vit 1 tab PO DAILY 07/26/22 11/04/23 D3 10 mcg (400 unit)-minerals tablet Held on 11/04/23. Instructions: on hold capsaicin 0.025 % topical patch 1 patch topical DAILY pain 07/26/22 05/28/24 (Salonpas-Hot) citalopram 10 mg tablet 10 mg PO DAILY 07/26/22 07/23/24 fexofenadine 180 mg tablet 180 mg PO DAILY 07/26/22 07/23/24 (Benita Allergy) flaxseed oil 1,000 mg capsule 1,000 mg PO DAILY 07/26/22 07/23/24 glucosamine 750 sd-kirppi-uoq 2-C 1 tab PO DAILY 07/26/22 07/23/24 30 mg-D3 1,000 unit-maida 1 mg tablet (Jmwclwhkqgr-Mubamgrhsap-NWP + vitD) isosorbide mononitrate 30 mg 30 mg PO DAILY 07/26/22 07/23/24 tablet,extended release 24 hr liothyronine 25 mcg tablet 25 mcg PO DAILY 07/26/22 07/23/24 (Cytomel) melatonin 3 mg capsule 3 mg PO DAILY 07/26/22 07/23/24 metoprolol succinate 50 mg 50 mg PO BID 07/26/22 07/23/24 tablet,extended release 24 hr multivitamin 1 tab PO DAILY 07/26/22 05/28/24 nitroglycerin 0.4 mg sublingual 0.4 mg sublingual Q5M PRN chest 07/26/22 07/23/24 tablet pain cyclobenzaprine 10 mg tablet 10 mg PO BEDTIME 04/20/23 07/23/24 ferrous sulfate 325 mg (65 mg 325 mg PO BID 09/02/23 07/23/24 iron) tablet diclofenac sodium 75 mg 75 mg PO BID 10/13/23 07/23/24 tablet,delayed release levothyroxine 75 mcg tablet 75 mcg PO QAM 10/13/23 07/23/24 calcium 600 mg (as carbonate)-vit 1 tab PO BID 11/04/23 07/23/24 D3 20 mcg (800 unit) chewable tablet (Caltrate plus D) Previous Rx's ?Medication ?Instructions ?Recorded pantoprazole 40 mg tablet,delayed 40 mg PO DAILY #30 tabs 10/13/23 release (Protonix) gabapentin 100 mg capsule 100 mg PO BID #60 caps 01/05/24 hydrocodone 5 mg-acetaminophen 325 1 tab PO TID PRN pain #90 tabs 01/05/24 mg tablet hydrocodone 5 mg-acetaminophen 325 1 tab PO TID PRN pain #90 tabs 05/16/24 mg tablet hydrocodone 5 mg-acetaminophen 325 1 tab PO TID PRN pain #90 tabs 07/18/24 mg tablet Allergies Allergy/AdvReac Type Severity Reaction Status Date / Time Penicillins Allergy Severe Hives Verified 05/28/24 10:54 codeine AdvReac Intermediate Dizziness Verified 05/28/24 10:54 fluconazole (From Diflucan) AdvReac Intermediate Hives Verified 05/28/24 10:54 quinine (From Quinamm) AdvReac Mild Headache Verified 05/28/24 10:54 pregabalin (From Lyrica) AdvReac Dizziness Verified 05/28/24 10:54 propoxyphene (From Darvon) AdvReac Headache Verified 05/28/24 10:54 decongest multi-action AdvReac Mild Headache Uncoded 05/28/24 10:54 Opioid HPI Opioid Management Most Recent Pain and Opioid Data: Last Pain Scale 6 Today, 13:07 Last Pain Intensity 0 08/10/22, 12:00 Last ORT Total Score 1 10/13/23, 03:09 Last ORT Risk Category Low Risk 10/13/23, 03:09 Review of Systems ROS Constitutional Denies: fever or chills Cardiovascular Denies: chest pain Respiratory Denies: shortness of breath Gastrointestinal Denies: abdominal pain, nausea or vomiting Musculoskeletal Reports: extremity pain; Denies: back pain or neck pain Integumentary/Breast Reports: sores; Denies: rash Neurological Denies: headache, numbness in extremities, weakness in extremities, dizziness or slurred speech [facility]SH [facility] Medical History Chest pain, rule out acute myocardial infarction ?R07.9 - Chest pain, unspecified (ICD-10) CAD (coronary artery disease) ?I25.10 - Atherosclerotic heart disease of unga coronary artery without angina pectoris (ICD-10) Hypothyroid ?E03.9 - Hypothyroidism, unspecified (ICD-10) Hypertension ?I10 - Essential (primary) hypertension (ICD-10) Pelvic fracture ?S32.9XXA - Fracture of unspecified parts of lumbosacral spine and pelvis, initial encounter for closed fracture (ICD-10) TIA (transient ischemic attack) ?G45.9 - Transient cerebral ischemic attack, unspecified (ICD-10) Closed fracture of coccyx ?S32.2XXA - Fracture of coccyx, initial encounter for closed fracture (ICD-10) Osteoarthritis ?M19.90 - Unspecified osteoarthritis, unspecified site (ICD-10) H/O pyelonephritis ?Z87.448 - Personal history of other diseases of urinary system (ICD-10) Syncope ?R55 - Syncope and collapse (ICD-10) Generalized weakness ?R53.1 - Weakness (ICD-10) Dizziness ?R42 - Dizziness and giddiness (ICD-10) Surgical History Pain management ?R52 - Pain, unspecified (ICD-10) H/O bladder repair surgery ?Z98.890 - Other specified postprocedural states (ICD-10) H/O breast surgery ?Z98.890 - Other specified postprocedural states (ICD-10) H/O knee surgery ?Z98.890 - Other specified postprocedural states (ICD-10) H/O foot surgery ?Z98.890 - Other specified postprocedural states (ICD-10) History of right knee joint replacement ?Z96.651 - Presence of right artificial knee joint (ICD-10) History of YAG laser capsulotomy of lens ?Z98.49 - Cataract extraction status, unspecified eye (ICD-10) Hx laparoscopic cholecystectomy ?Z90.49 - Acquired absence of other specified parts of digestive tract (ICD-10) H/O: hysterectomy ?Z90.710 - Acquired absence of both cervix and uterus (ICD-10) History of arthroscopic knee surgery ?Z98.890 - Other specified postprocedural states (ICD-10) H/O discectomy ?Z98.890 - Other specified postprocedural states (ICD-10) H/O dilation and curettage ?Z98.890 - Other specified postprocedural states (ICD-10) History of appendectomy ?Z90.49 - Acquired absence of other specified parts of digestive tract (ICD-10) Hx of tonsillectomy ?Z90.89 - Acquired absence of other organs (ICD-10) Family History Other Family history of CHF (congestive heart failure) Social History Within the past year, how often did you have a drink containing alcohol: never Score interpretation: A score less than 3 is consistent with normal alcohol consumption. Smoking status: Never smoker Non-prescribed substance use: denies use Previous occupational history: Retired, , lives at home Highest level of school completed/degree received: high school graduate Are you now , , , , never or living with a partner: In a typical week, how many times do you talk on the telephone with family, friends, or neighbors: once per week How often do you get together with friends or relatives: once per week How often do you attend taoist or christianity services: 1-3 times per year Little interest or pleasure in doing things: not at all Feeling down, depressed, or hopeless: not at all Feel stressed/tense/nervous/anxious/difficulty sleeping: not at all Gender Identity: female Exam Constitutional Vital Signs, click to edit/add: Last Vital Signs Temp 97.5 F L 07/23/24 13:07 Pulse 79 07/23/24 13:07 Resp 18 07/23/24 13:07 BP 177/83 H 07/23/24 13:07 Pulse Ox 95 07/23/24 13:07 O2 Del Method Room Air 07/23/24 13:07 Common normals: no apparent distress and oriented x3 General appearance: cooperative [facility] Common normals: external ears normal and moist oral mucous membranes Head and scalp: no Lund's sign and no raccoon eyes Other: Erythema noted to left cheek area. Eye Common normals: PERRL, EOMs intact bilaterally, conjunctivae normal and no scleral icterus Neck & C-Spine Common normals: supple Cervical spine: no cervical spine tenderness and no paracervical muscle tenderness Chest Common normals: palpation of chest normal Chest: symmetrical chest wall rise Respiratory Common normals: normal respiratory effort Effort & inspection: able to speak in complete sentences and symmetric chest movement Cardio Common normals: regular rate Peripheral pulses: radial pulses present, posterior tibial pulses present and dorsalis pedis pulses present Extremity Other: Tenderness to left shoulder, bilateral hips, and right knee. No obvious deformity noted. Decreased ROM to extremities due to pain. Bruising developing to left shoulder area. She has skin tears to her right forearm and left wrist area. The left wrist skin tear has a connecting 3 cm laceration that will require closure. Abrasions to left great toe and 5th digit of right hand. No active bleeding. Distal sensation intact. 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 Neuro Common normals: oriented x3, CN's II-XII intact bilaterally, moves all extremities and no focal motor deficits Sensorium/orientation: awake and alert Speech: speech normal Course Vital Signs Vital signs: Vital Signs Temperature 97.5 F L 07/23/24 13:07 Pulse Rate 79 07/23/24 13:07 Respiratory Rate 18 07/23/24 13:07 Blood Pressure 177/83 H 07/23/24 13:07 Pulse Oximetry 95 07/23/24 13:07 Oxygen Delivery Method Room Air 07/23/24 13:07 Temperature 97.5 F L 07/23/24 13:07 Pulse Rate 79 07/23/24 13:07 Respiratory Rate 18 07/23/24 13:07 Blood Pressure 177/83 H 07/23/24 13:07 Pulse Oximetry 95 07/23/24 13:07 Oxygen Delivery Method Room Air 07/23/24 13:07 MDM - Fall MDM Narrative Medical decision making narrative: Her wounds were cleansed. Sutures were placed in the laceration area on the left wrist. She was advised 10-14 days for suture removal. Imaging was negative for acute findings. Findings were discussed. She was ambulatory here in the ED; gait was steady with a walker which she uses normally. She has a pcp appointment 07/25/24 for a wound recheck and dressing change. Follow up as scheduled. Medical Records Attestation: I reviewed the patient's medical records. Imaging Data XR and CT: Attestation: I have reviewed the pertinent imaging results. Radiologist's impression: ITS Impressions Cervical Spine CT 07/23/24 13:24 IMPRESSION: No fracture. Degenerative changes are noted as above with 4 mm of anterolisthesis of C7 upon T1 secondary to facet hypertrophy. This is unchanged when compared to the previous MRI. Impression dictated by: Yovany Patel M.D. 07/23/2024 2:42 PM Dictation Location: [facility] Electronically authenticated by: [id number] Y Date: 07/23/2024 14:42 Forearm X-Ray 07/23/24 13:24 IMPRESSION: No fracture or dislocation. Impression dictated by: Yovany Patel M.D. 07/23/2024 2:47 PM Dictation Location: [facility] Electronically authenticated by: [id number] Y Date: 07/23/2024 14:[address] 07/23/24 13:24 IMPRESSION: No acute intracranial pathology. 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 Impression dictated by: Yovany Patel M.D. 07/23/2024 2:38 PM Dictation Location: [facility] Electronically authenticated by: [id number] Y Date: 07/23/2024 14:38 Knee X-Ray 07/23/24 13:24 IMPRESSION: No fracture. Impression dictated by: Yovany Patel M.D. 07/23/2024 2:46 PM Dictation Location: [facility] Electronically authenticated by: [id number] Y Date: 07/23/2024 14:[address] 07/23/24 13:24 IMPRESSION: No fracture or dislocation. Degenerative changes are noted as above. Impression dictated by: Yovany Patel M.D. 07/23/2024 2:46 PM Dictation Location: [employer] Electronically authenticated by: [id number] Y Date: 07/23/2024 14:46 Shoulder X-Ray 07/23/24 13:24 IMPRESSION: No fracture or dislocation. Degenerative changes are noted in the left shoulder with findings suggesting underlying calcific tendinosis. Impression dictated by: Yovany Patel M.D. 07/23/2024 2:48 PM Dictation Location: [employer] Electronically authenticated by: [id number] Y Date: 07/23/2024 14:48 Discharge Plan Discharge Chief Complaint: Fall Clinical Impression: Fall, Head injury, Knee pain, right, Contusion of left shoulder, Skin tear, Laceration of left wrist Patient Disposition: Home, Self-Care Time of Disposition Decision: 15:07 Condition: Good Mode of Transportation: Private Vehicle Prescriptions / Home Meds: No Action cyclobenzaprine 10 mg tablet 10 mg PO BEDTIME ferrous sulfate 325 mg (65 mg iron) tablet 325 mg PO BID fexofenadine [Benita Allergy] 180 mg tablet 180 mg PO DAILY calcium carbonate-vit D3-min 600 mg calcium- 400 unit tablet 1 tab PO DAILY Patient Comments: takes one tablet at 1200 and 1800 citalopram 10 mg tablet 10 mg PO DAILY liothyronine [Cytomel] 25 mcg tablet 25 mcg PO DAILY multivitamin Tablet 1 tab PO DAILY flaxseed oil 1,000 mg capsule 1,000 mg PO DAILY Lyjmuhxv-Mvkxsk-CSE with vit D 750-30-1,000-1 gs-fv-hfsz-mg tablet 1 tab PO DAILY isosorbide mononitrate 30 mg tablet extended release 24 hr 30 mg PO DAILY melatonin 3 mg capsule 3 mg PO DAILY nitroglycerin 0.4 mg tablet, sublingual 0.4 mg sublingual Q5M PRN (Reason: chest pain) Patient Comments: PRN Rx Instructions: do not exceed 3 doses per episode capsaicin [Salonpas-Hot] 0.025 % adhesive patch,medicated 1 patch topical DAILY Rx Instructions: do not leave patch on for more than 8 hrs metoprolol succinate 50 mg tablet extended release 24 hr 50 mg PO BID hydrocodone-acetaminophen 5-325 mg tablet 1 tab PO TID PRN (Reason: pain) Qty: 90 0RF gabapentin 100 mg capsule 100 mg PO BID Qty: 60 0RF diclofenac sodium 75 mg tablet,delayed release (DR/EC) 75 mg PO BID levothyroxine 75 mcg tablet 75 mcg PO QAM pantoprazole [Protonix] 40 mg tablet,delayed release (DR/EC) 40 mg PO DAILY Qty: 30 11RF Caltrate 600 plus D 600 mg-20 mcg (800 unit) tablet,chewable 1 tab PO BID hydrocodone-acetaminophen 5-325 mg tablet 1 tab PO TID PRN (Reason: pain) Qty: 90 0RF Rx Instructions: MUST LAST 30 DAYS hydrocodone-acetaminophen 5-325 mg tablet 1 tab PO TID PRN (Reason: pain) Qty: 90 0RF Print Language: Turkish Instructions: Laceration (ED), Head Injury (ED), Shoulder Sprain (ED), Knee Pain (ED), Skin Tear (ED) Additional Instructions: Return to the ER for worsening symptoms. Keep the wounds clean and dry. The sutures need to be removed in 10-14 days. Watch for signs of infection: redness, purulent drainage, increased warmth, swelling. Referrals: Luis Rogers MD [Primary Care Provider, [facility]] - 1 week Procedures ED Laceration Laceration Laceration 1: Site: upper extremity Side (if applicable): left Size (cm): 3 Description: irregular Depth: simple, single layer Anesthetic used: lidocaine 1% Anesthesia technique: local infiltration Pre-repair: irrigated extensively Skin layer closed with: other (Nylon) Size (cm): 5-0 Number of sutures: 5 Technique: simple, interrupted
[2024-07-23] MEDS: ADACEL DIPH,PERTUSS(ACELL),TET VAC/PF 0.5 ML ADULT SYRINGE IM (14:30)
[2024-07-23] MEDS: LIDOCAINE HCL 1% 100 MG/10 ML MDV INJ (15:40)
[2024-07-23 16:02] VITALS: BP 168/72; PULSE 78; O2SAT 97
== END 2024-07-23 16:06 | disposition home or self-care (01) ==
PROVIDERS: Emergency Provider Emergency Medicine; PCP Family Medicine
DX: S61.512A Laceration without foreign body of left wrist, initial encounter (principal); S40.012A Contusion of left shoulder, initial encounter; S09.90XA Unspecified injury of head, initial encounter; M25.561 Pain in right knee; S90.412A Abrasion, left great toe, initial encounter; S60.416A Abrasion of right little finger, initial encounter; W01.0XXA Fall on same level from slipping, tripping and stumbling without subsequent striking against object, initial encounter; S51.811A Laceration without foreign body of right forearm, initial encounter; Z96.651 Presence of right artificial knee joint; Z90.49 Acquired absence of other specified parts of digestive tract; Z90.710 Acquired absence of both cervix and uterus; Z23 Encounter for immunization
CPT/HCPCS: 12002; 70450; 72125; 72192; 73030; 73090; 73562; 90471; 90715; 99285

== ENCOUNTER 2024-08-01 15:06 | Outpatient (OUT) | payer MEDICARE, SELFPAY ==
--- OUTSIDE RECORDS SUMMARY | 2024-08-01 15:09 | XMS_ITS | Clinical Summary ---
Author Organization [facility] Address [address] [place] [address] Care Team Providers Care Batch Roller Operator Name Role Phone Luis Rogers MD Primary Care Provider [phone] Allergies Active Allergy Reactions Criticality Noted Date Comments Codeine 08/02/2022 Propoxyphene GI intolerance,Headache 08/02/2022 Pseudoephedrine Hcl 08/02/2022 NOTES SENSITIVITY Fluconazole Unknown 12/06/2023 Pregabalin Dizziness 08/02/2022 Penicillins Unknown 08/02/2022 CHILDHOOD ALLERGY Quinine GI intolerance,Headache,D izziness 08/02/2022 QUINAMM Medications Calcium Carbonate-Vitami n D (CALTRATE 600+D PO) Take by mouth twice a day. Active citalopram (CeleXA) 10 MG tablet 1 (one) time each day at the same time. Active cyclobenzaprine (Flexeril) 5 MG tablet Take 5 mg by mouth every 12 (twelve) hours if needed. Active diclofenac (Voltaren) 75 MG EC tablet every 12 (twelve) hours. Active Flaxseed, Linseed, (Flax Seed Oil) 1000 MG capsule as directed Orally Active Glucosamine-Ankur droitin-MSM (Triple Flex) 500-400-125 MG tablet 1 tablet with meals Orally twice daily for 30 days Active HYDROcodone-acet aminophen ([place]) 5-325 MG tablet 1 tablet as needed Orally twice daily 3 Active isosorbide mononitrate ER (Imdur) 30 MG 24 hr tablet Take 30 mg by mouth in the morning. 3 Active levothyroxine (Synthroid, Levoxyl) 75 MCG tablet 1 (one) time each day at the same time. 3 Active liothyronine (Cytomel) 25 MCG tablet 1 (one) time each day at the same time. Active melatonin 3 MG tablet 1 (one) time each day at the same time. Active metoprolol succinate XL (Toprol-XL) 50 MG 24 hr tablet 1 tablet Orally twice daily for 90 days Active nitroglycerin (Nitrostat) 0.4 MG SL tablet as directed Sublingual Active Zinc-Magnesium Aspart-Vit B6 (Zinc Magnesium Aspartate) 150-3.83-10 MG capsule 1 (one) time each day at the same time. Active acetaminophen (Tylenol) 500 MG tablet Take by mouth. Activ e aspirin 81 MG EC tablet Take 81 mg by mouth in the morning. Active Multiple Vitamin (multivitamin) tablet Take 1 tablet by mouth in the morning. Active ferrous sulfate 325 (65 Fe) MG tablet Take 1 tablet by mouth in the morning and 1 tablet before bedtime. 4 Active pantoprazole (ProtoNix) 40 MG EC tablet Take 40 mg by mouth Daily 4 Active fexofenadine (Benita) 180 MG tablet Take 180 mg by mouth Daily Active MAGNESIUM PO Take by mouth + cheleated zinc Active Camphor-Menthol- Methyl Edwar (SALONPAS TD) Place on the skin Active Trolamine Salicylate (BLUE-EMU MAXIMUM PAIN RELIEF EX) Apply topically Act paco Active Problems Problem Noted Date Diagnosed Date Fibrocystic breast changes 12/06/2023 Primary osteoarthritis of right knee 12/06/2023 Spinal stenosis, lumbar region with neurogenic c laudication 09/21/2022 Scoliosis of lumbar spine 04/11/2022 Essential hypertension 09/12/2012 Osteoarthritis 09/12/2012 Immunizations Immunization Administration Dates Next Due Influenza, Unspecified 11/28/2020 Influenza, injectable, MDCK, preservative free, quadrivalent 12/02/2021 Influenza, trivalent, adjuvanted 11/29/2019 Moderna Bivalent Booster Vaccination 12/09/2021 Pneumococcal Conjugate PCV 13 11/12/2016 Zoster, live 05/27/2017 Family History Medical History Relation Name Comments Heart disease Father Heart disease Mother Relation Name Status Comments Father Mother Social History Tobacco Use Types Packs/Day Years Used Date Smoking Tobacco: Never Smokeless Tobacco: Never Alcohol Use Standard Drinks/Week Comments Never 0 (1 standard drink = 0.6 oz pur e alcohol) AUDIT-C Answer Date Recorded Q1: How often do you have a drink containing alcohol? Never 12/06/2023 Q2: How many drinks containi ng alcohol do you have on a typical day when you are drinking? Patient does not drink Q3: How often do you have si x or more drinks on one occasion? Never 12/06/2023 PHQ-2 Answer Date Recorded Patient Health Questionnaire-2 Score 0 12/06/2023 Comments No Sex and Gender Information Value Date Recorded Sex Assigned at Not on file Legal Sex Female 6:37 PM EDT Gender Identity Not on file Sexual Orientation Not on file Last Filed Vital Signs Vital Sign Reading Time Taken Comments Blood Pressure 142/82 12/06/2023 11:32 AM EDT Pulse - - Temperature - - Respiratory Rate - - Oxygen Saturation - - Inhaled Oxygen Concentration - - Weight 74.4 kg (164 lb) 12/06/2023 11:32 AM EDT Height 147.3 cm (4' 10 ) 12/06/2023 11:32 AM EDT Body Mass Index 34.28 12/06/2023 11:32 AM EDT Plan of Treatment Upcoming Encounters Date Type Department Care Team (Late st Contact Info) Description 12/10/2025 11:30 AM EDT Office Visit [facility] [address] [facility] [address] [place] [id number] Armando Thayer, DO [address] [facility] [address] [place] [address] Health Maintenance Due Date Last Done Comments Pneumococcal Vaccine: 65+ Ye ars (2 of 2 - PPSV23) 11/12/2017 11/12/2016 Influenza Vaccine (Season Ended) 2024 12/02/2021, 11/28/2020, 11/29/2019 Insurance MEDICARE [facility] Care Teams Batch Roller Operator Relationship Specialty Start Date End Date Luis Rogers MD PCP - General Family Medicine 08/02/22
--- OUTSIDE RECORDS SUMMARY | 2024-08-01 15:09 | XMS_ITS | Encounter Summary ---
Author Organization [facility] Address [address] [place] [id number] Care Team Providers Care Assurance Assistant Name Role Phone Haley Matos DO, George Cajetan Unavailable Luis Rogers MD Primary Care Provider [phone] Porsha Garcia Unavailable Haley Matos DO, George Cajetan Unavailable Luis Rogers MD Unavailable [phone] 1 Source Comments In the event this information is protected by the Federal Confidentiality of Alcohol and Drug AbusePatient Records regulations: The Federal rules restrict any use of the information to criminally investigate or prosecute any alcohol or drug abuse patient.[facility] Encounter Details Date Type Department Care Team (Late st Contact Info) Description 09/23/2022 Patient Msg Neurology [address] [place] [id number] Provider, [facility] Referral Social History Tobacco Use Types Packs/Day Years Used Date Smoking Tobacco: Never Smokeless Tobacco: Never Alcohol Use Standard Drinks/Week Comments Never 0 (1 standard drink = 0.6 oz pur e alcohol) PHQ-2 Answer Date Recorded PHQ-2 score 2 05/09/2022 Area Deprivation Index Answer Date Jorden rded National Score (1-100), lower number is lower ri sk 63 09/21/2022 State Score (1-10), lower number is lower risk 4 09/21/2022 Data from: https://www.neighborhoodatlas.medicine.[facility] [place].edu/. Last address used for calculation [address] [facility] [address] 09/21/2022 Comments Unknown Sex and Gender Information Value Date Recorded Sex Assigned at Not on file Legal Sex Female 11:59 AM EST Gender Identity Not on file Sexual Orientation Not on file documented as of this encounter Plan of Treatment Not on file documented as of this encounter Visit Diagnoses Not on filedocumented in this encounter Care Teams Assurance Assistant Relationship Specialty Start Date End Date Luis Rogers MD [address] [place] [address] PCP - General Family Medicine 05/14/22 Arsh De Leon Jr., DO [address] [place] [address] [address] [place] [address] Referring Orthopedics 05/03/22 Porsha Garcia [id number] [id number] Pain Management 05/14/22 Arsh De Leon Jr., DO [address] [facility] [address] [place] [address] Orthopedics 05/14/22 Luis Rogers MD [address] [place] [address] Referring Family Medicine 08/11/22 documented as of this encounter
--- OUTSIDE RECORDS SUMMARY | 2024-08-01 15:09 | XMS_ITS | Encounter Summary ---
Author Organization [facility] Address [address] [place] [address] Care Team Providers Care Flatwork Folder Name Role Phone Luis Rogers MD Primary Care Provider [phone] Encounter Details Date Type Department Care Team (Late Contact Info) Description 01/09/2024 Orders Only [facility] [address] [facility] [address] [place] [address] Armando Thayer, DO [address] [facility] [address] [place] [address] Social History Tobacco Use Types Packs/Day Years [...] as of this encounter Plan of Treatment Upcoming Encounters Date Type Department Care Team (Late Contact Info) Description 12/10/2025 11:30 AM EDT Office Visit [facility] [address] [facility] [address] [place] [address] Armando Thayer, DO [address] [place] [address] documented as of this encounter Procedures Procedure Name Priority Date/Time Associated Diagnosis Comments MAMMOGRAM, BILATERAL, SCREEN:* Routine 01/09/2024 3:00 PM EST documented in this encounter Results * MAMMOGRAM, BILATERAL, SCREEN:* (01/09/2024 3:00 PM EST) Anatomical Region Laterality Modality Radiographic Michelle ging Armando Thayer DO IMG XR PROCEDURES Final Resu lt documented in this encounter Visit Diagnoses Not on filedocumented in this encounter Care Teams Flatwork Folder Relationship Specialty Start Date End Date Luis Rogers MD PCP - General Family Medicine 08/02/22 documented as of this encounter
--- OUTSIDE RECORDS SUMMARY | 2024-08-01 15:09 | XMS_ITS | Clinical Summary ---
Author Organization [facility] Address [address] [place], [place] [id number] Care Team Providers Care Archives Specialist Name Role Phone Haley Matos DO, George Cajetan Unavailable Luis Rogers MD Primary Care Provider [phone] LakkailamipathArmen manciaranneto Unavailable Haley Matos DO, George Cajetan Unavailable Luis Rogers MD Unavailable [phone] Allergies Active Allergy Reactions Criticality Noted Date Comments Codeine Unknown High 09/13/2012 Decongest Multi-Action Other: See Comments 04/22 Penicillins Unknown High 09/13/2012 Pregabalin Intolerance 05/14/2022 Dizziness Propoxyphene Rash,Unknown High 05/14/2022 Headache Quinamm GI Upset 05/14/2022 Medications citalopram hydrobromide (CELEXA) 10 mg tablet Take 10 mg by mouth once daily. Treat Depression 3 Active diclofenac, EC, (VOLTAREN) 75 mg EC tablet Take 75 mg by mouth twice daily. For Arthritis pain 3 Active isosorbide mononitrate ER (IMDUR) 30 mg 24 hr tablet Take 30 mg by mouth once daily. 1 tablet daily in the AM on an empty stomach Treat for Angina 3 Active levothyroxine (SYNTHROID) 75 mcg tablet Take 75 mcg by mouth once daily. Patient takes 1 tablet in the AM 3 Active HYDROcodone-acet aminophen (NORCO) 5-325 mg per tablet Take 1 tablet by mouth twice daily as needed. 3 Active metoprolol succinate ER (TOPROL XL) 50 mg 24 hr tablet Take 50 mg by mouth twice daily. 3 Active hydroCHLOROthiaz molly 25 mg tablet Take 25 mg by mouth once daily. Active liothyronine (CYTOMEL) 25 mcg tablet Take 25 mcg by mouth once daily. Active NITROGLYCERIN ORAL Take 0.4 mg by mouth three times daily. 1 tablet by mouth 3x daily As needed for chest pain Active cyclobenzaprine (FLEXERIL) 5 mg tablet Take 5 mg by mouth twice daily as needed for muscle spasm. Active aspirin, enteric coated (ASPIRIN, ENTERIC COATED) 81 mg EC tablet Take 81 mg by mouth once daily. Active MULTIVITAMIN ORAL Take by mouth. Equate with Lycopene Complete Multivitamin Active calcium carbonate/vitami n D3 (CALTRATE 600 + D ORAL) Take by mouth twice daily. Active glucosamine HCl/S-Adenosylme t (TRIPLE FLEX MOOD & JOINT JESSY-E ORAL) Take by mouth twice daily. Tablet contains Glucosamine 1500 mg Chodroitin 800 mg MSM 750 mg 1 tablet twice daily am and pm Active Flaxseed Oil (OMEGA-3 FLAXSEED OIL) 1,000 mg cap Take 1,000 mg by mouth once daily. Active fexofenadine (MALORIE ALLERGY) 180 mg tablet Take 180 mg by mouth once daily. Active MAGNESIUM AMINO ACID CHELATE ORAL Take 250 mg by mouth once daily. At bedtime Active melatonin 3 mg capsules Take 3 mg by mouth daily at bedtime. Active acetaminophen (TYLENOL EXTRA STRENGTH) 500 mg tablet Take 500 mg by mouth twice daily. Active Capsaicin (SALONPAS-HOT) 0.025 % ptmd Apply to affected area. Active Active Problems Problem Noted Date Diagnosed Date Spinal stenosis, lumbar region with neurogenic c laudication 09/21/2022 Obesity, Class I, BMI 30-34.9 09/21/2022 Scoliosis, unspecified 04/11/2022 Immunizations Immunization Administration Dates Next Due influenza (aIIV3) vaccine, a ge 65+ yr, trivalent, PF (FLUAD) 11/29/2019 influenza (ccIIV4) vaccine, age 6+ mo, quadrivalent, PF (FLUCELVAX) 12/02/2021 influenza vaccine, unspecified formulation 11/28 pneumococcal conjugate (PCV1 3) vaccine, 13 valent (PREVNAR 13) 11/12/2016 zoster (ZVL) vaccine, live (ZOSTAVAX) 05/27/2017 Social History Tobacco Use Types Packs/Day Years Used Date Smoking Tobacco: Never Smokeless Tobacco: Never Tobacco Cessation:Counseling Given: Not Answered Alcohol Use Standard Drinks/Week Comments Never 0 (1 standard drink = 0.6 oz pur e alcohol) PHQ-2 Answer Date Recorded PHQ-2 score 2 05/09/2022 Area Deprivation Index Answer Date Jorden rded National Score (1-100), lower number is lower ri sk 63 09/21/2022 State Score (1-10), lower number is lower risk 4 09/21/2022 Data from: https://www.neighborhoodatlas.medicine.[facility]/. Last address used for calculation [address] 09/21/2022 Comments Unknown Sex and Gender Information Value Date Recorded Sex Assigned at Not on file Legal Sex Female 11:59 AM EST Gender Identity Not on file Sexual Orientation Not on file Last Filed Vital Signs Vital Sign Reading Time Taken Comments Blood Pressure 153/60 09/21/2022 12:51 PM EDT Pulse 67 09/21/2022 12:51 PM EDT Temperature - - Respiratory Rate - - Oxygen Saturation 99% 05/14/2022 2:22 PM EDT Inhaled Oxygen Concentration - - Weight 76.4 kg (168 lb 6.4 oz) 05/14/2022 2:22 P M EDT Height 152.4 cm (5') 05/14/2022 2:22 PM EDT Body Mass Index 32.89 05/14/2022 2:22 PM EDT Plan of Treatment Health Maintenance Due Date Last Done Comments Anxiety Screening 04/30/1958 Depression Screening 04/30/1957 DTaP,Tdap,Td Vaccine (1 - Tdap) 04/30/1958 Diabetes Screening 04/30/1984 Medicare Annual Wellness Visit 04/21/2004 Bone Density Screening 04/30/2004 RSV Vaccine (1 - 1-dose 75+ series) 04/30/2014 Shingrix Vaccine (2 of 3) 07/22/2017 05/27/2017 Pneumococcal Vaccine: 50+ (2 of 2 - PPSV23) 11/12/2017 11/12/2016 Covid-19 Vaccine (6 - 2024-2 5 season) 2023 12/09/2021, 06/04/2021, 12/13/2020, Additional history exists Advance Directive Discussion 02/22/2024 Influenza Vaccine (Season Ended) 2024 12/02/2021, 11/28/2020, 11/29/[address] [place] [address] [facility] Address: [address] [place] [address] MEDICARE RAILROAD MEDICARE Care Teams Archives Specialist Relationship Specialty Start Date End Date Luis Rogers MD [address] [place] [address] PCP - General Family Medicine 05/14/22 Arsh De Leon Jr., DO [address] [facility] [facility] [place] [address] Referring Orthopedics 05/03/22 Porsha Garcia [address] [id number] Pain Management 05/14/22 Arsh De Leon Jr., DO [address] [facility] [address] [place] [address] Orthopedics 05/14/22 Luis Rogers MD [address] [place] [address] Referring Family Medicine 08/11/22
--- NOTE | 2024-08-01 15:40 | PM.CN ---
Consult Note: HPI Data of Consult Patient: known to practice within the last 3 years Consult date: 08/01/24 Requesting Physician: Vivian Meza NP Primary Care Provider: Luis Rogers MD Consult Narrative Reason for consult: right thumb and 2nd digit pain Narrative: 84 year old female with chronic right thumb pain, significant improvement ongoing from recent right thumb injection. noticing increased pain and edema at proximal joint of index finger over the last week without redness and warmth. no hx of gout. cc:: CC: Vivian Meza NP Review of Systems ROS Status of ROS 10 or more systems reviewed and unremarkable except as noted in history and below PFSH PFS Medical History Chest pain, rule out acute myocardial infarction ?R07.9 - Chest pain, unspecified (ICD-10) CAD (coronary artery disease) ?I25.10 - Atherosclerotic heart disease of [place] coronary artery without angina pectoris (ICD-10) Hypothyroid ?E03.9 - Hypothyroidism, unspecified (ICD-10) Hypertension ?I10 - Essential (primary) hypertension (ICD-10) Pelvic fracture ?S32.9XXA - Fracture of unspecified parts of lumbosacral spine and pelvis, initial encounter for closed fracture (ICD-10) TIA (transient ischemic attack) ?G45.9 - Transient cerebral ischemic attack, unspecified (ICD-10) Closed fracture of coccyx ?S32.2XXA - Fracture of coccyx, initial encounter for closed fracture (ICD-10) Osteoarthritis ?M19.90 - Unspecified osteoarthritis, unspecified site (ICD-10) H/O pyelonephritis ?Z87.448 - Personal history of other diseases of urinary system (ICD-10) Syncope ?R55 - Syncope and collapse (ICD-10) Generalized weakness ?R53.1 - Weakness (ICD-10) Dizziness ?R42 - Dizziness and giddiness (ICD-10) Surgical History Pain management ?R52 - Pain, unspecified (ICD-10) H/O bladder repair surgery ?Z98.890 - Other specified postprocedural states (ICD-10) H/O breast surgery ?Z98.890 - Other specified postprocedural states (ICD-10) H/O knee surgery ?Z98.890 - Other specified postprocedural states (ICD-10) H/O foot surgery ?Z98.890 - Other specified postprocedural states (ICD-10) History of right knee joint replacement ?Z96.651 - Presence of right artificial knee joint (ICD-10) History of YAG laser capsulotomy of lens ?Z98.49 - Cataract extraction status, unspecified eye (ICD-10) Hx laparoscopic cholecystectomy ?Z90.49 - Acquired absence of other specified parts of digestive tract (ICD-10) H/O: hysterectomy ?Z90.710 - Acquired absence of both cervix and uterus (ICD-10) History of arthroscopic knee surgery ?Z98.890 - Other specified postprocedural states (ICD-10) H/O discectomy ?Z98.890 - Other specified postprocedural states (ICD-10) H/O dilation and curettage ?Z98.890 - Other specified postprocedural states (ICD-10) History of appendectomy ?Z90.49 - Acquired absence of other specified parts of digestive tract (ICD-10) Hx of tonsillectomy ?Z90.89 - Acquired absence of other organs (ICD-10) Family History Other Family history of CHF (congestive heart failure) Social History Within the past year, how often did you have a drink containing alcohol: never Score interpretation: A score less than 3 is consistent with normal alcohol consumption. Smoking status: Never smoker Non-prescribed substance use: denies use Previous occupational history: Retired, , lives at home Highest level of school completed/degree received: high school graduate Are you now , , , , never or living with a partner: In a typical week, how many times do you talk on the telephone with family, friends, or neighbors: once per week How often do you get together with friends or relatives: once per week How often do you attend yarsanism or jainism services: 1-3 times per year Little interest or pleasure in doing things: not at all Feeling down, depressed, or hopeless: not at all Feel stressed/tense/nervous/anxious/difficulty sleeping: not at all Gender Identity: female Meds Home Medications and Allergies Home Medications ?Medication ?Instructions ?Recorded ?Confirmed ?Type calcium 600 mg (as carbonate)-vit 1 tab PO DAILY 07/26/22 11/04/23 History D3 10 mcg (400 unit)-minerals tablet Held on 11/04/23. Instructions: on hold capsaicin 0.025 % topical patch 1 patch topical DAILY pain 07/26/22 05/28/24 History (Salonpas-Hot) citalopram 10 mg tablet 10 mg PO DAILY 07/26/22 07/23/24 History fexofenadine 180 mg tablet 180 mg PO DAILY 07/26/22 07/23/24 History (Benita Allergy) flaxseed oil 1,000 mg capsule 1,000 mg PO DAILY 07/26/22 07/23/24 History glucosamine 750 bj-qlhsuv-cin 2-C 1 tab PO DAILY 07/26/22 07/23/24 History 30 mg-D3 1,000 unit-maida 1 mg tablet (Lobqriaiznt-Zpcxdddyrpd-TGO + vitD) isosorbide mononitrate 30 mg 30 mg PO DAILY 07/26/22 07/23/24 History tablet,extended release 24 hr liothyronine 25 mcg tablet 25 mcg PO DAILY 07/26/22 07/23/24 History (Cytomel) melatonin 3 mg capsule 3 mg PO DAILY 07/26/22 07/23/24 History metoprolol succinate 50 mg 50 mg PO BID 07/26/22 07/23/24 History tablet,extended release 24 hr multivitamin 1 tab PO DAILY 07/26/22 05/28/24 History nitroglycerin 0.4 mg sublingual 0.4 mg sublingual Q5M PRN chest 07/26/22 07/23/24 History tablet pain cyclobenzaprine 10 mg tablet 10 mg PO BEDTIME 04/20/23 07/23/24 History ferrous sulfate 325 mg (65 mg 325 mg PO BID 09/02/23 07/23/24 History iron) tablet diclofenac sodium 75 mg 75 mg PO BID 10/13/23 07/23/24 History tablet,delayed release levothyroxine 75 mcg tablet 75 mcg PO QAM 10/13/23 07/23/24 History pantoprazole 40 mg tablet,delayed 40 mg PO DAILY #30 tabs 10/13/23 07/23/24 Rx release (Protonix) calcium 600 mg (as carbonate)-vit 1 tab PO BID 11/04/23 07/23/24 History D3 20 mcg (800 unit) chewable tablet (Caltrate plus D) gabapentin 100 mg capsule 100 mg PO BID #60 caps 01/05/24 07/23/24 Rx hydrocodone 5 mg-acetaminophen 325 1 tab PO TID PRN pain #90 tabs 01/05/24 07/23/24 Rx mg tablet hydrocodone 5 mg-acetaminophen 325 1 tab PO TID PRN pain #90 tabs 05/16/24 05/28/24 Rx mg tablet hydrocodone 5 mg-acetaminophen 325 1 tab PO TID PRN pain #90 tabs 07/18/24 Rx mg tablet Allergies Allergy/AdvReac Type Severity Reaction Status Date / Time Penicillins Allergy Severe Hives Verified 05/28/24 10:54 codeine AdvReac Intermediate Dizziness Verified 05/28/24 10:54 fluconazole (From Diflucan) AdvReac Intermediate Hives Verified 05/28/24 10:54 quinine (From Quinamm) AdvReac Mild Headache Verified 05/28/24 10:54 pregabalin (From Lyrica) AdvReac Dizziness Verified 05/28/24 10:54 propoxyphene (From Darvon) AdvReac Headache Verified 05/28/24 10:54 decongest multi-action AdvReac Mild Headache Uncoded 05/28/24 10:54 Exam Extremity Other: no pain with ROM of right thumb, mild pain with rom of 2nd digit. moderate edema noted. Assessment and Plan Assessment and Plan (1) Right hand pain: (2) Bilateral thumb pain: (3) Lumbar stenosis with neurogenic claudication: (4) Lumbar spondylosis: (5) Myalgia, other site: Plan pt advised to f/u with PCP for right second digit edema, will order xray due to recent fall with injury and increased pain. if pain persists pt to contact pcp, especially if she develops warmth or redness to joint as discussed continue current medications continue HEP as tolerated f/u 6 weeks sooner if needed
--- OUTSIDE RECORDS SUMMARY | 2024-08-01 18:07 | XMS_ITS | CCD ---
Author Organization [facility] Care Team Providers Care Diver'S Tender Name Role Phone PHYSICIAN, DEFAULT Unavailable Unavailable PHYSICIAN, DEFAULT Unavailable Unavailable Haley Matos DO, George Cajetan Unavailable Galina Rogers MD Primary Care Provider Lakshmipathy, Narendranath Unavailable [phone] Haley Matos DO, George Cajetan Unavailable ESTELA ., DR MOJICA Primary Care Unavailable HOY ., DR MOJICA Attending Unavailable HOY ., DR MOJICA Consulting Unavailable HOY ., DR MOJICA Admitting Unavailable LAKSHMIPATHY ., NARROSA Consulting Laura vailable LAKSHMIPATHY ., PORSHA Admitting Laura vailable LAKSHMIPATHY ., PORSHA Attending Laura vailable HOY ., DR MOJICA Primary Care Unavailable BECKWITH ., DR NIKO Austin Consulting Unavailable BECKWITH ., DR NIKO Austin Admitting Unavailable BECKWITH ., DR NIKO Austin Attending Unavailable ESTELA ., DR MOJICA Primary Care Unavailable NATI FARAH Consulting Unavailable HOY ., DR MOJICA Primary Care Unavailable HOY ., DR MOJICA Attending Unavailable HOY .DR MOJICA Consulting Unavailable HOAshlie ., DR MOJICA Admitting Unavailable WEST, DR HERMES Jean Baptiste Consulting Unavailable HOAshlie [...] LAKSHMIPATHY ., NARENDRANATH Attending Laura vailable HALKER ., CLAUDIO Consulting Unavailable HOY ., DR MOJICA Primary [...] PEPE De La Rosa Attending Unavailabl e FRANCES, DR PEPE De La Rosa Admitting Unavailjob ROGERS ., DR MOJICA Primary Care Unavailable EMILY [...] Consulting Unavailable FAWWAD, SEGURA H Admitting Unavailable FAWCRYSTAL LUAIKH H Attending Unavailable ESTELA ., DR MOJICA Primary Care Unavailable SAMSA ., BALTAZAR Consulting Unavailable MELO ., ROGE Consulting Unavailable FAWWAAly, SEGURA H Consulting Unavailable LINARES, JARET Consulting Unavailable AA, AA Consulting Unavailable ESTELA ., DR MOJICA Primary Care Unavailable HOY ., DR MOJICA Attending Unavailable HOY ., DR MOJICA Admitting Unavailable HOY ., DR MOJICA Primary Care Unavailable HOY ., DR MOJICA Admitting Unavailable HOY ., DR MOJICA Attending Unavailable HOY ., DR MOJICA Consulting Unavailable ONEILL, DR HERMES Jean Baptiste Consulting Unavailable BECKWITH [...] JR. HALEY, COLETTE Dorman Attending Unavailvanda DE LOEN JR., COLETTE Dorman Referring UnavailARMANDO Trinh Attending Unavailable Galina Rogers MD Primary Care Provider Ishmael MEANS, Lyn Adams Attending Unavailable Ishmael MEANS, Lyn Adams Attending Unavailable Ishmael MEANS, Lyn Adams Attending Unavailable Giedraitis , Andantoni Adams Attending Unavailable Giedraitis , Andantoni Adams Attending Unavailable Gieditis , Andantoni Adams Attending Unavailable Giedraitis , Andantoni Adams Attending Unavailable Allergies Allergy Classification Reported Allergen(s) Allergy Type Date of Onset Reaction(s) Facility (5 sources) Codeine; Translations: [CODEINE] Drug Allergy 09-14-19 13 Unknown [facility] (4 sources) Penicillins; Translations: [PENICILLINS] Drug Allergy 09-14-19 13 Unknown [facility] (4 sources) pregabalin; Translations: [PREGABALIN] Drug Allergy 05-15-19 23 Intolerance [facility] Work Phone: (5 sources) Propoxyphene; Translations: [PROPOXYPHENE] Drug Allergy 05-15-19 23 Rash, Unknown, GI intolerance, Headache [facility] (4 sources) quiNINE; Translations: [QUINAMM] Drug Allergy 05-15-19 23 GI Upset [facility] (5 sources) Decongest Multi-Action; Translations: [Decongest Multi-Action] Drug Allergy 05-15-19 23 Other: See Comments [facility] (1 source) Acetaminophen / HYDROcodone Drug Allergy [facility] (2 sources) Codeine Drug Allergy 09-14-19 13 [facility] (1 source) Fluconazole Drug Allergy [facility] (2 sources) Penicillins Drug allergy (disorder) 09-14-19 13 [facility] (1 source) pregabalin Drug Allergy [facility] (2 sources) Propoxyphene Drug Allergy [facility] (1 source) quiNINE Drug Allergy [facility] (1 source) Fluconazole Allergy to substance 12-06-19 24 Unknown [facility] (1 source) Penicillins Propensity to adverse reactions 08-03-19 23 Unknown [facility] (1 source) Pregabalin Propensity to adverse reactions 08-03-19 Dizziness [facility] (1 source) Pseudoephedrine Drug Allergy 08-03-19 [facility] (1 source) quiNINE Drug Allergy [...] mouth twice daily as needed HYDROcodone-acetamin ophen ([place]) 5-325 MG tablet 1 tablet as needed [...] Take by mouth twice a day. Active Kevwjnc-Pkqskfc-Ipefv l Edwar (SALONPAS TD) (1 source) Camphor-Menthol- [...] above: Take by mouth twice daily. 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 08-18-2023 L Specimen: [id number] Received: 08/22/23 Status: CECILIA Wright Num: [id number] Spec Type: Impression Subm Dr: Galina Rogers MD Tissues: PATHPER Procedures: PATHREVIEW Age/ Patient Sex Location Account Attending Physician Alexa Delgado 83/F LABELL [id number] Galina Rogers MD SPEC NUM: [id number] RECD: 08/22/23 [facility] NUM: [id number] JANET: 08/18/[address]: Galina Rogers MD ENTERED: 08/22/23 [facility] DR: EvelynLab SPEC TYPE: Impression DEPT: SHELLIE Simmons ENTERED BY: [id number] RECV BY: [id number] ORDERED: PATHREVIEW ORDERED: PATHREVIEW Pathologist Review Abnormal [...] initial report for the needed correction CPT: 74642 ---- ---- Specimen: [id number] Received: 08/22/23 Status: CECILIA Wright Num: [id number] Spec Type: Impression Subm Dr: Galina Rogers MD Tissues: PATHPER Procedures: PATHREVIEW ---- Patient: Alexa Delgado [id number] (Continued) ---- Signed (signature on file) Anoop Abdul MD 08/24/23918 Normal [facility] CNOVjustina 09-21-2022 CNOV Office Visit (NSADHC ) ALEXA DELGADO ([id number]) 1940 F Date Time Provider Department 09/21/22 [...] Percentile 2 (more content not included)... Normal [facility] XR LSPINE 2_3 VIEWSon 2022 XR [...] by: HERMES MENDOZA Date: 2022-07-16 11:34 Normal [facility] CNOVon 05-14-2022 OV Office Visit (SPMESH ) ALEXA DELGADO ([id number]) 1940 F Date Time Provider Department 05/14/22 2:30 PM MARTY DOZIER During your visit today, we recorded the following information about you: Pulse Blood pressure Weight Height 72/minute 158/87 76.4 kg 1.524 m Marty Dozier DO 05/15/2022 10:02 PM Signed [facility] Initial [...] Ratio: R>L low back Current Treatment: Medications [place] 5-325 mg BID - helps Diclofenac 75 [...] but still has pain -01/28/22 Noemi Sequeira RACING SECRETARY AND HANDICAPPER: BL Lumbar erector spinae TPI (0.125% Marcaine, [...] ongoing as of 04/17/21 -03/08/21 Noemi Sequeira RACING SECRETARY AND HANDICAPPER: Left rhomboid TPI (0.125% Marcaine, 40 mg Kenalog) -02/03/21 LESI - moderate relief for 4 days Prior spine surgery: -2006 L4-5 Discectomy Previously treated by: -[facility], previously Dr. Niko [...] today. She has an evaluation at the [facility] tomorrow at the [facility]. RECOMMENDATIONS: We will see the pat (more content not included)... Normal [facility] CULTURE URINEon 04-05-2022 CULTURE URINE Culture Observations : LIGHT GROWTH OF MIXED GENITAL ALANIS. NO POTENTIAL PATHOGENS SEEN. Normal [facility] Comment on above: Performed By: #### U RCX ####[facility] [address] [place] [address]Dr. Grace Abdul UA RANDOM W/MICROSCOPICon BACTERIA NONE SEEN Normal NONE SEEN [facility] Comment on above: Performed By: #### U AMIC ####[facility] [address] [place] [address]Dr. Grace Abdul Bilirubin Ql (U) Negative Normal NEGATIVE [facility] Comment on above: Performed By: #### U AMIC ####[facility] [address] [place], [place] [address]Dr. Grace Abdul CAST NONE SEEN Normal NONE SEEN [facility] Comment on above: Performed By: #### U AMIC ####[facility] [address] [place] [address]Dr. Grace Abdul Clarity (U) CLEAR Normal CLEAR [facility] Comment on above: Performed By: #### U AMIC ####[facility] [address] [place] [address]Dr. Benitalan Abdul Color (U) YELLOW Normal YELLOW [facility] Comment on above: Performed By: #### U AMIC ####[facility] [address] [place] [address]Dr. Grace Abdul Crystals LM Nom (Urine sed) NONE SEEN Normal NONE SEEN [facility] Comment on above: Performed By: #### U AMIC ####[facility] [address] [place] [address]Dr. Grace Abdul Epithelial cells LM Ql (Urine sed) RARE Normal NONE SEEN /RARE [facility] Comment on above: Performed By: #### U AMIC ####[facility] E[address] [place] [address]Dr. Grace Abdul Glucose Ql (U) Negative Normal NEGATIVE [facility] Comment on above: Performed By: #### U AMIC ####[facility] [address] [place] [address]Dr. Grace Abdul Hemoglobin Ql (U) MODERATE Abnormal NEGATIVE [facility] Comment on above: Performed By: #### U AMIC ####[facility] [address] [place] [address]Dr. Grace Abdul Ketones Ql (U) TRACE Abnormal NEGATIVE [facility] Comment on above: Performed By: #### U AMIC ####[facility] [address] [place], [place] [address]Dr. Benitalee ann Abdul LEUKOCYTES TRACE Abnormal NEGATIVE [facility] Comment on above: Performed By: #### U AMIC ####[facility] [address] [place], [place] [address]Dr. Grace Abdul MUCOUS NONE SEEN Normal NONE SEEN [facility] Comment on above: Performed By: #### U AMIC ####[facility] [address] [place], [place] [address]Dr. Grace Abdul Nitrite Ql (U) Negative Normal NEGATIVE [facility] Comment on above: Performed By: #### U AMIC ####[facility] [address] [place], [place] [address]Dr. Grace Abdul pH (U) 5.0 [pH] Normal 5-9 [facility] Comment on above: Performed By: #### U AMIC ####[facility] [address] [place] [address]Dr. Grace Abdul RBC 0-2 Normal 0-2 [facility] Comment on above: Performed By: #### U AMIC ####[facility] [address] [place] [address]Dr. Grace Abdul SPEC GRAVITY 1.015 Normal 1.005-<=1.025 [facility] Comment on above: Performed By: #### U AMIC ####[facility] [address] [place] [address]Dr. Grace Abdul UA PROTEIN Negative Normal NEGATIVE/ TRACE [facility] Comment on above: Performed By: #### U AMIC ####[facility] [address] [place] [address]Dr. Grace Abdul Urobilinogen Qn (U) 0.2 {Ashley'U}/dL Normal 0.2 - 1. 0 [facility] Comment on above: Performed By: #### U AMIC ####[facility] [address] [place] [address]Dr. Grace Abdul WBC 0-2 Abnormal NONE SEEN [facility] Comment on above: Performed By: #### U AMIC ####[facility] Fshiigtmoh[address] [place] [address]Dr. Grace Abdul CBC AUTO DIFFon 04-04-2022 BASO # 0.0 103/ul Normal 0.0-0.1 [facility] Comment on above: Performed By: #### C BC ####[facility] [address]ie[address] [place], [place] [address]Dr. Grace Abdul Basophils/100 WBC (Bld) 0.4 % Normal 0.2-2.0 [facility] Comment on above: Performed By: #### C BC ####[facility] Nz[address] [place], [place] [address]Dr. Garce Abdul EO # 0.1 103/ul Normal 0.0-0.7 [facility] Comment on above: Performed By: #### C BC ####[facility] [address]ib[address] [place], [place] [address]Dr. Grace Abdul Eosinophils/100 WBC (Bld) 1.3 % Normal 0.9-7.0 [facility] Comment on above: Performed By: #### C BC ####[facility] [address] [place] [address]Dr. Grace Abdul Erythrocyte distribution width (RBC) [Ratio] 13.7 % Normal 11.0-15.0 [facility] Comment on above: Performed By: #### C BC ####[facility] [address] [place] [address]Dr. Benitalee ann Abdul Hematocrit (Bld) [Volume fraction] 37.2 % Normal 36.0-48.0 [facility] Comment on above: Performed By: #### C BC ####[facility] [address]se[address] [place] [address]Dr. Grace Abdul Hemoglobin (Bld) [Mass/Vol] 12.4 g/dL Normal 12.0-16.0 [facility] Comment on above: Performed By: #### C BC ####[facility] [address] [place] [address]Dr. Grace Abdul IG # 0.02 10e3/ul Normal 0.00-0.03 [facility] Comment on above: Performed By: #### C BC ####[facility] [address]te[address] [place] [address]Dr. Grace Abdul IG % 0.4 % Normal 0.0-0.5 [facility] Comment on above: Performed By: #### C BC ####[facility] [address]aw[address] [place] [address]Dr. Grace Abdul LYMPH # 0.8 103/ul Critically low 1.2-3.8 [facility] Comment on above: Performed By: #### C BC ####[facility] [address] [place] [address]Dr. Grace Abdul Lymphocytes/100 WBC (Bld) 13.9 % Critically low 20.5-60.0 [facility] Comment on above: Performed By: #### C BC ####[facility] [address]jmikaq[address] [place] [address]Dr. Grace Abdul MANUAL DIFF REQ NO Normal [facility] Comment on above: Performed By: #### C BC ####[facility] Ulav[address] [place], [place] [address]Dr. Grace Abdul MCH (RBC) [Entitic mass] 30.5 pg Normal 26.7-34.0 [facility] Comment on above: Performed By: #### C BC ####[facility] [address]wf[address] [place] [address]Dr. Grace Abdul MCHC (RBC) [Mass/Vol] 33.3 g/dL Normal 29.9-35.2 [facility] Comment on above: Performed By: #### C BC ####[facility] [address] [place] [address]Dr. Grace Abdul MCV (RBC) [Entitic vol] 91.4 fL Normal 81.0-99.0 [facility] Comment on above: Performed By: #### C BC ####[facility] [address] [place] [address]Dr. Grace Abdul MONO # 0.7 103/ul Normal 0.3-0.8 [facility] Comment on above: Performed By: #### C BC ####[facility] [address]th[address] [place], [place] [address]Dr. Grace Abdul Monocytes/100 WBC (Bld) 13.5 % Critically high 1.7-12.0 [facility] Comment on above: Performed By: #### C BC ####[facility] G[address] [place], [place] [address]Dr. Grace Abdul NEUT # 3.8 103/ul Normal 1.4-6.5 [facility] Comment on above: Performed By: #### C BC ####[facility] Ixx[address] [place], [place] [address]Dr. Grace Abdul Neutrophils/100 WBC (Bld) 70.5 % Normal 43.0-75.0 [facility] Comment on above: Performed By: #### C BC ####[facility] Ebopmumabg[address] [place], [place] [address]Dr. Grace Abdul Platelet mean volume (Bld) [Entitic vol] 9.0 fL Critically low 9.5-13.5 [facility] Comment on above: Performed By: #### C BC ####[facility] Ob[address]wo[address] [place], [place] [address]Dr. Grace Abdul PLT 283 103/ul Normal 150-450 [facility] Comment on above: Performed By: #### C BC ####[facility] [address] [place], [place] [address]GqLisette Abdul RBC 4.07 106/ul Critically low 4.20-5.40 [facility] Comment on above: Performed By: #### C BC ####[facility] [address] [place], [place] [address]XaLisette Abdul WBC 5.4 103/ul Normal 4.0-11.0 [facility] Comment on above: Performed By: #### C BC ####[facility] Hwcaqu[address] [place], [place] [address]Ah. Grace Abdul CT ABD/PELV W CONon 04-04-19 [...] for bowel obstruction. Electronically authenticated by: EMILY ROSALBA Date: 2022-04-04 16:59 Normal [facility] ER URINE PROFILEon 3 Bilirubin Ql (U) Negative Normal NEGATIVE [facility] Comment on above: Performed By: #### GINA FELDERRO ####[facility] [address] [place] [address]Dr. Grace Abdul Clarity (U) CLEAR Normal CLEAR [facility] Comment on above: Performed By: #### Anthony ELLISON UMICRO ####[facility] [address]ura[address] [place] [address]Dr. Grace Abdul Color (U) LT. YELLOW Normal YELLOW [facility] Comment on above: Performed By: #### GINA FELDERRO ####[facility] U[address] [place], [place] [address]Dr. Grace Abdul ERUAHD A micrscopic examination will be performed if indicated. Normal [facility] Comment on above: Performed By: #### GODWIN FELDERICRO ####[facility] [address]ox[address] [place] [address]Dr. Grace Abdul Glucose Ql (U) Negative Normal NEGATIVE [facility] Comment on above: Performed By: #### Anthony ELLISON UMICRO ####[facility] [address] [place] [address]Dr. Grace Abdul Hemoglobin Ql (U) SMALL Abnormal NEGATIVE [facility] Comment on above: Performed By: #### Anthony ELLISON UMICRO ####[facility] I[address] [place], [place] [address]Dr. Grace Abdul Ketones Ql (U) Negative Normal NEGATIVE [facility] Comment on above: Performed By: #### GINA FELDERRO ####[facility] [address] [place] [address]Dr. Grace Abdul LEUKOCYTES TRACE Abnormal NEGATIVE [facility] Comment on above: Performed By: #### GINA FELDERRO ####[facility] [address] [place], [place] [address]Dr. Grace Abdul Nitrite Ql (U) Negative Normal NEGATIVE [facility] Comment on above: Performed By: #### ROBERT FELDER ####[facility] [address] [place] [address]Dr. Grace Abdul pH (U) 7.5 [pH] Normal 5-9 [facility] Comment on above: Performed By: #### ROBERT FELDER ####[facility] [address] [place] [address]Dr. Grace Abdul SPEC GRAVITY 1.005 Normal 1.005-<=1.025 [facility] Comment on above: Performed By: #### ROBERT FELDER ####[facility] [address] [place] [address]Dr. Grace Abdul UA PROTEIN Negative Normal NEGATIVE/ TRACE [facility] Comment on above: Performed By: #### ROBERT FELDER ####[facility] [address] [place] [address]Dr. Grace Abdul UR MICRO IND INDICATED Normal [facility] Comment on above: Performed By: #### ROBERT FELDER ####[facility] [address] [place] [address]Dr. Grace Abdul Urobilinogen Qn (U) 0.2 {Ashley'U}/dL Normal 0.2 - 1. 0 [facility] Comment on above: Performed By: #### GINA FELDERRO ####[facility] [address] [place] [address]Dr. Grace Abdul LIPASEon 04-04-2022 Lipase [Catalytic activity/Vol] 115.0 U/L Normal 73.0-393.0 [facility] Comment on above: Performed By: #### C VDTB #### [facility] [address] [place] [address] [address] Grace Abdul PROF 14(COMP METB)on 023 Albumin [Mass/Vol] 3.6 g/dL Normal 3.4-5.0 [facility] Comment on above: Performed By: #### C VDTBH #### [facility] [address] [place] [address] [address] Grace Abdul Albumin/Globulin [Mass ratio] 1.1 {ratio} Normal [facility] Comment on above: Performed By: #### C VDTBH #### [facility] [address] [place] [address] [address] Grace Abdul ALP [Catalytic activity/Vol] 74 U/L Normal 46-116 [facility] Comment on above: Performed By: #### C VDTBH #### [facility] [address] [address] [address] Grace Abdul ALT [Catalytic activity/Vol] 23 U/L Normal 14-59 [facility] Comment on above: Performed By: #### C VDTBH #### [facility] [address] [place] [address] Dr. Grace Abdul Anion gap [Moles/Vol] 12.1 mmol/L Normal [facility] Comment on above: Performed By: #### C VDTBH #### [facility] [address] [place] [address] Dr. Grace Abdul AST [Catalytic activity/Vol] 21 U/L Normal 15-37 [facility] Comment on above: Performed By: #### C VDTBH #### [facility] [address] [place] [address] Dr. Grace Abdul Bilirubin [Mass/Vol] 0.2 mg/dL Normal 0.2-1.0 [facility] Comment on above: Performed By: #### C VDTBH #### [facility] [address] [place] [address] Dr. Grace Abdul Calcium [Mass/Vol] 9.3 mg/dL Normal 8.5-10.1 [facility] Comment on above: Performed By: #### C VDTBH #### [facility] [address] [place] [address] Dr. Grace Abdul Chloride [Moles/Vol] 99 mmol/L Normal 98-107 [facility] Comment on above: Performed By: #### C VDTBH #### [facility] [address] [address] [address] Grace Abdul CO2 [Moles/Vol] 31.2 mmol/L Normal 21.0-32.0 [facility] Comment on above: Performed By: #### C VDTBH #### [facility] [address] [address] [address] Grace Abdul Creatinine [Mass/Vol] 1.22 mg/dL Critically high 0.55-1.02 [facility] Comment on above: Performed By: #### C VDTBH #### [facility] [address] [address] [address] Grace Abdul EGFR-AF [place]IZ[place] OF [place] 51 mL/min/1.73m2 Critically low >=60 [facility] Comment on above: Performed By: #### C VDTBH #### [facility] [address] [place] [address] Dr. Grace Abdul EGFR-NON AF CITIZEN OF [place] 42 mL/min/1.73m2 Critically low >=60 [facility] Comment on above: Performed By: #### C VDTBH #### [facility] [address] [address] [address] Grace Abdul Globulin (S) [Mass/Vol] 3.3 g/dL Normal [facility] Comment on above: Performed By: #### C VDTBH #### [facility] [address] [address] [address] Grace Abdul Glucose [Mass/Vol] 115 mg/dL Critically high 74-106 [facility] Comment on above: Performed By: #### C VDTBH #### [facility] [address] [address] [address] Grace Abdul Potassium [Moles/Vol] 3.3 mmol/L Critically low 3.5-5.1 [facility] Comment on above: Performed By: #### C VDTBH #### [facility] [address] [address] [address] Grace Abdul Protein [Mass/Vol] 6.9 g/dL Normal 6.4-8.2 [facility] Comment on above: Performed By: #### C VDTBH #### [facility] [address] [address] [address] Grace Abdul Sodium [Moles/Vol] 139 mmol/L Normal 136-145 [facility] Comment on above: Performed By: #### C VDTBH #### [facility] [address] [address] [address] Grace Abdul Urea nitrogen [Mass/Vol] 23.0 mg/dL Critically high 7.0-18.0 [facility] Comment on above: Performed By: #### C VDTBH #### [facility] [address] [address] [address] Grace Abdul Urea nitrogen/Creatinine [Mass ratio] 18.9 mg/mg Normal [facility] Comment on above: Performed By: #### C VDTB #### [facility] [address] [address] [address] Grace Abdul URINE MICROSCOPIC ONLYon BACTERIA NONE SEEN Normal NONE SEEN [facility] Comment on above: Performed By: #### Anthony ELLISON ICRO ####[facility] [address]let[address] [place] [address]Dr. Grace Abdul Bacteria identified Cx Nom (U) NOT INDICATED Normal [facility] Comment on above: Performed By: #### GODWIN FELDERICRO ####[facility] Buutnytxou[address] [place] [address]Dr. Grace Abdul CAST NONE SEEN Normal NONE SEEN [facility] Comment on above: Performed By: #### Anthony ELLISON UMICRO ####[facility] Eyhpwazuaz[address] [place] [address]Dr. Grace Abdul Crystals LM Nom (Urine sed) NONE SEEN Normal NONE SEEN [facility] Comment on above: Performed By: #### Anthony ELLISON UMICRO ####[facility] Hgtgjpfomy[address] [place] [address]Dr. Grace Abdul Epithelial cells LM Ql (Urine sed) RARE Normal NONE SEEN /RARE [facility] Comment on above: Performed By: #### ROBERT FELDER ####[facility] [address]zzauxnoa[address] [place] [id number]. Grace Abdul MUCOUS NONE SEEN Normal NONE SEEN [facility] Comment on above: Performed By: #### ROBERT FELDER ####[facility] Munyjqclfm[address] [place] [id number]. Grace Abdul RBC 0-2 Normal 0-2 [facility] Comment on above: Performed By: #### ROBERT FELDER ####[facility] Gdlddwsyza[address] [place] [id number]. Grace Abdul WBC 0-2 Abnormal NONE SEEN [facility] Comment on above: Performed By: #### ROBERT FELDER ####[facility] Xbmaedgxod[address] [place] [address]DrLisette Abdul BNPon 12-11-2021 Natriuretic peptide B (Bld) [Mass/Vol] 665.0 pg/mL Normal <=1,800.0 [facility] Comment on above: Performed By: #### B MP #### [facility] [address] [address] [address] Grace Abdul CBC AUTO DIFFon 12-11-2021 BASO # 0.0 103/ul Normal 0.0-0.1 [facility] Comment on above: Performed By: #### C BC ####[facility] Jgyyefcubu[address] [place] [address]Dr. Grace Abdul Basophils/100 WBC (Bld) 0.5 % Normal 0.2-2.0 [facility] Comment on above: Performed By: #### C BC ####[facility] Bjxkwdjemn[address] [place] [id number] Abdul EO # 0.1 103/ul Normal 0.0-0.7 [facility] Comment on above: Performed By: #### C BC ####[facility] Elbehsrssu[address] [place] [id number] Abdul Eosinophils/100 WBC (Bld) 1.9 % Normal 0.9-7.0 [facility] Comment on above: Performed By: #### C BC ####[facility] Nsknvporcd[address] [place] [address]Dr. Grace Abdul Erythrocyte distribution width (RBC) [Ratio] 13.4 % Normal 11.0-15.0 [facility] Comment on above: Performed By: #### C BC ####[facility] Pbzavauosx[address] [place], [place] [address]Dr. Grace Abdul Hematocrit (Bld) [Volume fraction] 36.2 % Normal 36.0-48.0 [facility] Comment on above: Performed By: #### C BC ####[facility] Pzpjahv[address] [place], [place] [address]Dr. Grace Abdul Hemoglobin (Bld) [Mass/Vol] 11.9 g/dL Critically low 12.0-16.0 [facility] Comment on above: Performed By: #### C BC ####[facility] Fctkfpcmom[address] [place], [place] [address]Dr. Grace Abdul IG # 0.01 10e3/ul Normal 0.00-0.03 [facility] Comment on above: Performed By: #### C BC ####[facility] Hbufacvaq[address] [place], [place] [address]Dr. Grace Abdul IG % 0.2 % Normal 0.0-0.5 [facility] Comment on above: Performed By: #### C BC ####[facility] Zlcphfczty[address] [place], [place] [address]Dr. Grace Abdul LYMPH # 0.5 103/ul Critically low 1.2-3.8 [facility] Comment on above: Performed By: #### C BC ####[facility] Omrziecxtj[address] [place], [place] [address]Dr. Grace Abdul Lymphocytes/100 WBC (Bld) 11.5 % Critically low 20.5-60.0 [facility] Comment on above: Performed By: #### C BC ####[facility] Crbamqsobd[address] [place], [place] [address]Dr. Grace Abdul MANUAL DIFF REQ NO Normal [facility] Comment on above: Performed By: #### C BC ####[facility] Zemsdgnric[address] [place] [id number]. Grace Abdul MCH (RBC) [Entitic mass] 31.6 pg Normal 26.7-34.0 [facility] Comment on above: Performed By: #### C BC ####[facility] Gflyuumahs[address] [place] [address]Dr. Grace Franko MCHC (RBC) [Mass/Vol] 32.9 g/dL Normal 29.9-35.2 [facility] Comment on above: Performed By: #### C BC ####[facility] Xernnwnguw[address] [place] [address]Dr. Grace Franko MCV (RBC) [Entitic vol] 96.0 fL Normal 81.0-99.0 [facility] Comment on above: Performed By: #### C BC ####[facility] Jjchcqzpp[address] [place], [place] [address]Dr. Grace Abdul MONO # 0.6 103/ul Normal 0.3-0.8 [facility] Comment on above: Performed By: #### C BC ####[facility] Atkihcxeve[address] [place], [place] [address]Dr. Benitalee ann Abdul Monocytes/100 WBC (Bld) 14.4 % Critically high 1.7-12.0 [facility] Comment on above: Performed By: #### C BC ####[facility] Dyxxczqlaf[address] [place], [place] [address]Dr. Benitalee ann Abdul NEUT # 3.0 103/ul Normal 1.4-6.5 [facility] Comment on above: Performed By: #### C BC ####[facility] Qjgmqwvipr[address] [place], [place] [address]DrLisette Abdul Neutrophils/100 WBC (Bld) 71.5 % Normal 43.0-75.0 [facility] Comment on above: Performed By: #### C BC ####[facility] Calhncpb[address] [place], [place] [address]DrLisette Abdul Platelet mean volume (Bld) [Entitic vol] 9.2 fL Critically low 9.5-13.5 [facility] Comment on above: Performed By: #### C BC ####[facility] Gleqqcuguz[address] [place], [place] [address]Qh. Grace Abdul PLT 290 103/ul Normal 150-450 [facility] Comment on above: Performed By: #### C BC ####[facility] Dmjvangukp9522 [place], [place] [address]Dy. Grace Abdul RBC 3.77 106/ul Critically low 4.20-5.[address] [facility] Comment on above: Performed By: #### C BC ####[facility] Zxmcspejgc32[address] [place], [place] [address]Ql. Grace Abdul WBC 4.2 103/ul Normal 4.0-11.0 [facility] Comment on above: Performed By: #### C BC ####[facility] [address]sgswrmoub[address] [place] [id number]. Grace Abdul FREE THYROXINE INDEX T7on FTI 2.63 Normal 1.30-4.50 [facility] Comment on above: Performed By: #### B MP #### [facility] [address] [address] [address] Grace Abdul T3U 35.0 % Normal 30.0-39.0 [facility] Comment on above: Performed By: #### B MP #### [facility] [address] [address] [address] Grace Abdul T4 [Mass/Vol] 7.50 ug/dL Normal 4.80-13.90 [facility] Comment on above: Performed By: #### B MP #### [facility] [address] [address] [address] Grace Abdul GLYCOHEMOGLOBIN A1Con 2021 ADA RECOMMENDATION SEE BELOW Normal [facility] Comment on above: Result Comment: ADA RECOMMENDED LIMIT 4.0 - 6.0 ADA THERAPEUTIC TARGET < 7.0 ACTION SUGGESTED > 7.0 Performed By: #### A 1C ####[facility] Vcyqsbbenz[address] [place] [address]Dr. Grace Abdul Glucose [Mass/Vol] 111 mg/dL Normal [facility] Comment on above: Performed By: #### A 1C ####[facility] Skzmealjwy[address] [place] [address]DrLisette Abdul HbA1c (Bld) [Mass fraction] 5.5 % Normal 4.5-6.2 [facility] Comment on above: Performed By: #### A 1C ####[facility] Bwupeyidwi[address] [place] [address]DrLisette Abdul IRONon 12-11-2021 Iron [Mass/Vol] 50.0 ug/dL Normal 50.0-170.[address] [facility] Comment on above: Performed By: #### I KASANDRA WEBSTER, VITB12 ####[facility] [address]ikcjwk[address] [place] [address]Dr. Grace Abdul LIPID PROFILEon 12-11-2021 CHOL-HDL RATIO NORM SEE BELOW Normal [facility] Comment on above: Result Comment: 3.3 - 4.4 LOW RISK 4.4 - 7.1 AVERAGE RISK 7.1 - 11.0 MODERATE RISK >11.0 HIGH RISK Performed By: #### B MP #### [facility] [address] [address] [address] Grace Abdul Cholesterol [Mass/Vol] 182 mg/dL Normal <=200 [facility] Comment on above: Performed By: #### B MP #### [facility] [address] [address] [address] Grace Abdul Cholesterol in HDL [Mass/Vol] 60 mg/dL Normal 40-60 [facility] Comment on above: Performed By: #### B MP #### [facility] [address] [address] [address] Grace Abdul Cholesterol in LDL [Mass/Vol] 101.2 mg/dL Normal [facility] Comment on above: Performed By: #### B MP #### [facility] [address] [address] [address] Grace Abdul Cholesterol.total/Ch olesterol in HDL [Mass ratio] 3.0 {ratio} Normal [facility] Comment on above: Performed By: #### B MP #### [facility] [address] [address] [address] Grace Abdul HDL NORMAL > or = 60 mg/dl - LO W CARDIOVASCULAR RISK <40 mg/dl - HIGH CARDIOVASCULAR RISK Normal [facility] Comment on above: Performed By: #### B MP #### [facility] [address] [address] [address] Grace Abdul LDL CALC NORMAL SEE BELOW Normal [facility] Comment on above: Result Comment: <100 mg/dl OPTIMAL 100 - 129 mg/dl NEAR OR ABOVE OPTIMAL 130 - 159 mg/dl BORDERLINE HIGH 160 - 189 mg/dl HIGH >190 mg/dl VERY HIGH Performed By: #### B MP #### [facility] [address] [place] [address] Dr. Grace Abdul Triglyceride [Mass/Vol] 104 mg/dL Normal <=150 [facility] Comment on above: Performed By: #### B MP #### [facility] [address] [address] [address] Grace Abdul VLDL CALC 20.8 mg/dL Normal [facility] Comment on above: Performed By: #### B MP #### [facility] [address] [place] [address] Dr. Grace Abdul PROF 14(COMP METB)on 022 Albumin [Mass/Vol] 3.5 g/dL Normal 3.4-5.0 [facility] Comment on above: Performed By: #### B MP #### [facility] [address] [place] [address] Dr. Grace Abdul Albumin/Globulin [Mass ratio] 1.0 {ratio} Normal [facility] Comment on above: Performed By: #### B MP #### [facility] [address] [place] [address] Dr. Grace Abdul ALP [Catalytic activity/Vol] 55 U/L Normal 46-116 [facility] Comment on above: Performed By: #### B MP #### [facility] [address] [place] [address] Dr. Grace Abdul ALT [Catalytic activity/Vol] 21 U/L Normal 14-59 [facility] Comment on above: Performed By: #### B MP #### [facility] [address] [address] [address] Grace Abdul Anion gap [Moles/Vol] 9.3 mmol/L Normal [facility] Comment on above: Performed By: #### B MP #### [facility] [address] [address] [address] Grace Abdul AST [Catalytic activity/Vol] 21 U/L Normal 15-37 [facility] Comment on above: Performed By: #### B MP #### [facility] [address] [address] [address] Grace Abdul Bilirubin [Mass/Vol] 0.3 mg/dL Normal 0.2-1.0 [facility] Comment on above: Performed By: #### B MP #### [facility] [address] [address] [address] Grace Abdul Calcium [Mass/Vol] 9.5 mg/dL Normal 8.5-10.1 [facility] Comment on above: Performed By: #### B MP #### [facility] [address] [address] [address] Grace Abdul Chloride [Moles/Vol] 102 mmol/L Normal 98-107 [facility] Comment on above: Performed By: #### B MP #### [facility] [address] [address] [address] Grace Abdul CO2 [Moles/Vol] 28.5 mmol/L Normal 21.0-32.0 [facility] Comment on above: Performed By: #### B MP #### [facility] [address] [address] [address] Grace Abdul Creatinine [Mass/Vol] 1.04 mg/dL Critically high 0.55-1.02 [facility] Comment on above: Performed By: #### B MP #### [facility] [address] [address] [address] Grace Abdul EGFR-AF [place]IZ[place] >60 Normal >=60 [facility] Comment on above: Performed By: #### B MP #### [facility] [address] [address] [address] Grace Abdul EGFR-NON AF [place] 51 mL/min/1.73m2 Critically low >=60 [facility] Comment on above: Performed By: #### B MP #### [facility] [address] [address] [address] Grace Abdul Globulin (S) [Mass/Vol] 3.5 g/dL Normal [facility] Comment on above: Performed By: #### B MP #### [facility] [address] [address] [address] Grace Abdul Glucose [Mass/Vol] 102 mg/dL Normal 74-106 [facility] Comment on above: Performed By: #### B MP #### [facility] [address] [address] [address] Grace Abdul Potassium [Moles/Vol] 3.8 mmol/L Normal 3.5-5.1 [facility] Comment on above: Performed By: #### B MP #### [facility] [address] [address] [address] Grace Abdul Protein [Mass/Vol] 7.0 g/dL Normal 6.4-8.2 [facility] Comment on above: Performed By: #### B MP #### [facility] [address] [address] [address] Grace Abdul Sodium [Moles/Vol] 136 mmol/L Normal 136-145 [facility] Comment on above: Performed By: #### B MP #### [facility] [address] [address] [address] Grace Abdul Urea nitrogen [Mass/Vol] 20.0 mg/dL Critically high 7.0-18.0 [facility] Comment on above: Performed By: #### B MP #### [facility] [address] [address] [address] Grace Abdul Urea nitrogen/Creatinine [Mass ratio] 19.2 mg/mg Normal [facility] Comment on above: Performed By: #### B MP #### [facility] [address] [address] [address] Grace Abdul TSHon 12-11-2021 TSH 0.247 uIU/mL Critically low 0.358-3.740 [facility] Comment on above: Performed By: #### B MP #### [facility] [address] [address] [address] Grace Abdul VITAMIN B12on 12-11-2021 Cobalamin (Vitamin B12) [Mass/Vol] 762.0 pg/mL Normal 193.0-986.0 [facility] Comment on above: Performed By: #### I DARIN VITAD, VITB12 ####[facility] [address] [place] [address]Dr. Grace Abdul VITAMIN D 25 OHon 12-11-2021 VIT D 25-OH 54.9 ng/mL Normal [facility] Comment on above: Performed By: #### I DARIN VITAD, VITB12 ####[facility] [address] [place] [address]DrLisette Abdul VIT D RANGES SEE BELOW Normal [facility] Comment on above: Result Comment: <20 ng/mL Vit D deficient 20 - <30 ng/mL Vit D insufficient 30 - 100 ng/mL Vit D sufficient >100 ng/mL Potential Toxicity Performed By: #### I DARIN, VITAD, VITB12 ####[facility] [address] [place] [address]DrLisette Abdul MG MAMM SCREEN 3D CLEMENCIA CADon 11-25-2021 MG MAMM SCREEN 3D CLEMENCIA CAD Patient: ALEXA DELGADO Exam Date: 11/25/2021 : 1940 Gender:F Ordering : DR GALINA ROGERS . Admission #: [id number] Family : DR ARMANDO MORALES Order #: [id number] CLICK HERE TO VIEW EXAM RADIOLOGY REPORT [...] Treatments None Family Cancers None LOCATION: [facility] BREAST COMPOSITION: Scattered areas fibroglandular density. [...] MD on 11/25/2021 at 14:14 Normal [facility] CULTURE URINEon 11-24-2021 CULTURE URINE Culture Observations : LIGHT GROWTH OF MIXED GENITAL ALANIS. NO POTENTIAL PATHOGENS SEEN. Normal [facility] Comment on above: Performed By: #### U RCX ####[facility] [address] [place] [address]Dr. Grace Abdul GI PANEL (PCR)on 11-24-2021 Adenovirus F 40/41 Not detected Normal NOT DETECTED [facility] Comment on above: Performed By: #### C BC #### [facility] [address] [place] [address] Dr. Grace Abdul Astrovirus Not detected Normal NOT DETECTED [facility] Comment on above: Performed By: #### C BC #### [facility] [address] [address] [address] Grace Abdul C. Diff toxin A/B Not detected Normal NOT DETECTED [facility] Comment on above: Performed By: #### C BC #### [facility] [address] [address] [address] Grace Abdul Campylobacter Not detected Normal NOT DETECTED [facility] Comment on above: Performed By: #### C BC #### [facility] [address] [place] [address] Dr. Grace Abdul Cryptosporidium Not detected Normal NOT DETECTED [facility] Comment on above: Performed By: #### C BC #### [facility] [address] [place] [address] Dr. Grace Abdul Cyclos. Cayetanensis Not detected Normal NOT DETECTED [facility] Comment on above: Performed By: #### C BC #### [facility] [address] [place] [address] Dr. Grace Abdul E. Coli O157 Not Applicable Normal Not Applicable [facility] Comment on above: Performed By: #### C BC #### [facility] [address] [place] [address] Dr. Grace Abdul E. histolytica Not detected Normal NOT DETECTED [facility] Comment on above: Performed By: #### C BC #### [facility] [address] [place] [address] Dr. Grace Abdul EAEC Not detected Normal NOT DETECTED [facility] Comment on above: Performed By: #### C BC #### [facility] [address] [place] [address] Dr. Grace Abdul EIEC Not detected Normal NOT DETECTED [facility] Comment on above: Performed By: #### C BC #### [facility] [address] [place] [address] Dr. Grace Abdul EPEC Not detected Normal NOT DETECTED [facility] Comment on above: Performed By: #### C BC #### [facility] [address] [place] [address] Dr. Grace Abdul ETEC Not detected Normal NOT DETECTED [facility] Comment on above: Performed By: #### C BC #### [facility] [address] [place] [address] Dr. Grace Abdul G. Lamblia Not detected Normal NOT DETECTED [facility] Comment on above: Performed By: #### C BC #### [facility] [address] [place] [address] Dr. Grace BURGESSL CONTROLS PASSED Normal [facility] Comment on above: Performed By: #### C BC #### [facility] [address] [place] [address] Dr. Grace NOLASCONL KAUR HEADER GI PANEL BACTERIA Normal [facility] Comment on above: Performed By: #### C BC #### [facility] [address] [address] [address] Grace SANDERS ECOLI GI PANEL DIARRHEAGEN IC E.COLI / SHIGELLA Normal [facility] Comment on above: Performed By: #### C BC #### [facility] [address] [address] [address] Grace SANDERS INFO SEE BELOW Normal [facility] Comment on above: Result Comment: EAEC - Enteroaggregative E. Coli EPEC- Enteropathogenic E. Coli ETEC- Enterotoxigenic E. Coli lt/st STEC- Shigella-like toxin-producing E. Coli stx1/stx2 EIEC- Shigella/Enteroinvasive E. Coli Performed By: #### C BC #### [facility] [address] [address] [address] Grace SANDERS PARASITES GI PANEL PARASITES Normal [facility] Comment on above: Performed By: #### C BC #### [facility] [address] [address] [address] Grace SANDERS VIRUS GI PANEL VIRUSES Normal [facility] Comment on above: Performed By: #### C BC #### [facility] [address] [address] [address] Grace Abdul Norovirus GI/GII Not detected Normal NOT DETECTED [facility] Comment on above: Performed By: #### C BC #### [facility] [address] [address] [address] Grace Abdul P. Shigelloides Not detected Normal NOT DETECTED [facility] Comment on above: Performed By: #### C BC #### [facility] [address] [address] [address] Grace Abdul Rotavirus A Not detected Normal NOT DETECTED [facility] Comment on above: Performed By: #### C BC #### [facility] [address] [place] [address] Dr. Grace Abdul Salmonella Not detected Normal NOT DETECTED [facility] Comment on above: Performed By: #### C BC #### [facility] [address] [place] [address] Dr. Grace Abdul Sapovirus Not detected Normal NOT DETECTED [facility] Comment on above: Performed By: #### C BC #### [facility] [address] [place] [address] Dr. Grace Abdul STEC Not detected Normal NOT DETECTED [facility] Comment on above: Performed By: #### C BC #### [facility] [address] [place] [address] Dr. Grace Abdul Vibrio Not detected Normal NOT DETECTED [facility] Comment on above: Performed By: #### C BC #### [facility] [address] [place] [address] Dr. Grace Abdul Vibrio Cholera Not detected Normal NOT DETECTED [facility] Comment on above: Performed By: #### C BC #### [facility] [address] [place] [address] Dr. Grace Abdul Y. Enterocolitica Not detected Normal NOT DETECTED [facility] Comment on above: Performed By: #### C BC #### [facility] [address] [place] [address] Dr. Grace Abdul UA RANDOM W/MICROSCOPICon BACTERIA NONE SEEN Normal NONE SEEN [facility] Comment on above: Performed By: #### U AMIC ####[facility] [address] [place] [address]DrLisette Abdul Bilirubin Ql (U) Negative Normal NEGATIVE [facility] Comment on above: Performed By: #### U AMIC ####[facility] [address] [place] [address]DrLisette Abdul CAST NONE SEEN Normal NONE SEEN [facility] Comment on above: Performed By: #### U AMIC ####[facility] [address] [place] [address]DrLisette Abdul Clarity (U) CLEAR Normal CLEAR [facility] Comment on above: Performed By: #### U AMIC ####[facility] [address] [place] [address]DrLisette Abdul Color (U) LT. YELLOW Normal YELLOW [facility] Comment on above: Performed By: #### U AMIC ####[facility] [address] [place] [address]Dr. Grace Abdul Crystals LM Nom (Urine sed) NONE SEEN Normal NONE SEEN [facility] Comment on above: Performed By: #### U AMIC ####[facility] [address] [place] [address]Dr. Grace Abdul Epithelial cells LM Ql (Urine sed) FEW Abnormal NONE SEEN /RARE [facility] Comment on above: Performed By: #### U AMIC ####[facility] [address] [place] [address]Dr. Grace Abdul Glucose Ql (U) Negative Normal NEGATIVE [facility] Comment on above: Performed By: #### U AMIC ####[facility] [address] [place] [address]Dr. Grace Abdul Hemoglobin Ql (U) TRACE-INTACT Abnormal NEGATIVE [facility] Comment on above: Performed By: #### U AMIC ####[facility] [address] [place], [place] [address]Dr. Grace Abdul Ketones Ql (U) Negative Normal NEGATIVE [facility] Comment on above: Performed By: #### U AMIC ####[facility] [address] [place] [address]Dr. Grace Abdul LEUKOCYTES Negative Normal NEGATIVE [facility] [facility] Comment on above: Performed By: #### U AMIC ####[facility] [address] [place], [place] [address]Dr. Grace Abdul MUCOUS NONE SEEN Normal NONE SEEN [facility] Comment on above: Performed By: #### U AMIC ####[facility] [address] [place], [place] [address]Dr. Grace Abdul Nitrite Ql (U) Negative Normal NEGATIVE [facility] Comment on above: Performed By: #### U AMIC ####[facility] [address] [place] [address]Dr. Grace Abdul pH (U) 7.5 [pH] Normal 5-9 [facility] Comment on above: Performed By: #### U AMIC ####[facility] [address] [place] [id number]. Grace Abdul RBC 0-2 Normal 0-2 [facility] Comment on above: Performed By: #### U AMIC ####[facility] [address] [place] [id number]. Grace Abdul SPEC GRAVITY 1.010 Normal 1.005-<=1.025 [facility] Comment on above: Performed By: #### U AMIC ####[facility] [address] [place] [id number]. Grace Abdul UA PROTEIN Negative Normal NEGATIVE/ TRACE [facility] Comment on above: Performed By: #### U AMIC ####[facility] [address] [place] [address]Dr. Grace Abdul Urobilinogen Qn (U) 0.2 {Ashley'U}/dL Normal 0.2 - 1. 0 [facility] Comment on above: Performed By: #### U AMIC ####[facility] [address] [place] [address]Dr. Grace Abdul WBC NONE SEEN Normal NONE SEEN [facility] Comment on above: Performed By: #### U AMIC ####[facility] [address] [place] [address]Dr. Grace Abdul CBC AUTO DIFFon 11-23-2021 BASO # 0.0 103/ul Normal 0.0-0.1 [facility] Comment on above: Performed By: #### C BC #### [facility] [address] [address] [address] Grace Abdul Basophils/100 WBC (Bld) 0.4 % Normal 0.2-2.0 [facility] Comment on above: Performed By: #### C BC #### [facility] [address] [address] [address] Grace Abdul EO # 0.1 103/ul Normal 0.0-0.7 [facility] Comment on above: Performed By: #### C BC #### [facility] [address] [place] [address] Dr. Grace Abdul Eosinophils/100 WBC (Bld) 1.5 % Normal 0.9-7.0 [facility] Comment on above: Performed By: #### C BC #### [facility] [address] [place] [address] Dr. Grace Abdul Erythrocyte distribution width (RBC) [Ratio] 13.2 % Normal 11.0-15.0 [facility] Comment on above: Performed By: #### C BC #### [facility] [address] [place] [address] Dr. Grace Abdul Hematocrit (Bld) [Volume fraction] 31.9 % Critically low 36.0-48.0 [facility] Comment on above: Performed By: #### C BC #### [facility] [address] [place] [address] Dr. Grace Abdul Hemoglobin (Bld) [Mass/Vol] 10.5 g/dL Critically low 12.0-16.0 [facility] Comment on above: Performed By: #### C BC #### [facility] [address] [place] [address] Dr. Grace Abdul IG # 0.01 10e3/ul Normal 0.00-0.03 [facility] Comment on above: Performed By: #### C BC #### [facility] [address] [place] [address] Dr. Grace Abdul IG % 0.2 % Normal 0.0-0.5 [facility] Comment on above: Performed By: #### C BC #### [facility] [address] [place] [address] Dr. Grace Abdul LYMPH # 0.7 103/ul Critically low 1.2-3.8 [facility] Comment on above: Performed By: #### C BC #### [facility] [address] [place] [address] Dr. Grace Abdul Lymphocytes/100 WBC (Bld) 14.8 % Critically low 20.5-60.0 [facility] Comment on above: Performed By: #### C BC #### [facility] [address] [place] [address] Dr. Grace Abdul MANUAL DIFF REQ NO Normal [facility] Comment on above: Performed By: #### C BC #### [facility] [address] [place] [address] Dr. Grace Abdul MCH (RBC) [Entitic mass] 31.4 pg Normal 26.7-34.0 [facility] Comment on above: Performed By: #### C BC #### [facility] [address] [place] [address] Dr. Grace Abdul MCHC (RBC) [Mass/Vol] 32.9 g/dL Normal 29.9-35.2 [facility] Comment on above: Performed By: #### C BC #### [facility] [address] [place] [address] Dr. Grace Abdul MCV (RBC) [Entitic vol] 95.5 fL Normal 81.0-99.0 [facility] Comment on above: Performed By: #### C BC #### [facility] [address] [place] [address] Dr. Grace Abdul MONO # 0.6 103/ul Normal 0.3-0.8 [facility] Comment on above: Performed By: #### C BC #### [facility] [address] [place] [address] Dr. Grace Abdul Monocytes/100 WBC (Bld) 13.4 % Critically high 1.7-12.0 [facility] Comment on above: Performed By: #### C BC #### [facility] [address] [place] [address] Dr. Grace Abdul NEUT # 3.3 103/ul Normal 1.4-6.5 [facility] Comment on above: Performed By: #### C BC #### [facility] [address] [place] [address] Dr. Grace Abdul Neutrophils/100 WBC (Bld) 69.7 % Normal 43.0-75.0 [facility] Comment on above: Performed By: #### C BC #### [facility] [address] [place], [place] [id number] Dr. Grace Abdul Platelet mean volume (Bld) [Entitic vol] 9.1 fL Critically low 9.5-13.5 [facility] Comment on above: Performed By: #### C BC #### [facility] [address] [address] [address] Graec Abdul PLT 335 103/ul Normal 150-450 [facility] Comment on above: Performed By: #### C BC #### [facility] [address] [address] [address] Grace Abdul RBC 3.34 106/ul Critically low 4.20-5.40 [facility] Comment on above: Performed By: #### C BC #### [facility] [address] [address] [address] Grace Abdul WBC 4.8 103/ul Normal 4.0-11.0 [facility] Comment on above: Performed By: #### C BC #### [facility] [address] [address] [address] Grace Abdul FREE THYROXINE INDEX T7on FTI 1.15 Critically low 1.30-4.50 [facility] Comment on above: Performed By: #### T 7, CMP, TSH ####[facility] [address] [place] [address]DrLisette Abdul T3U 31.0 % Normal 30.0-39.0 [facility] Comment on above: Performed By: #### T 7, CMP, TSH ####[facility] [address] [place] [address]Dr. Grace Abdul T4 [Mass/Vol] 3.70 ug/dL Critically low 4.80-13.90 [facility] Comment on above: Performed By: #### T 7, CMP, TSH ####[facility] [address] [place] [address]Dr. Grace Abdul IRONon 11-23-2021 Iron [Mass/Vol] 52.0 ug/dL Normal 50.0-170.0 [facility] Comment on above: Performed By: #### C VDTBH #### [facility] [address] [place], [place] [address] Dr. Grace Abdul PROF 14(COMP METB)on 022 Albumin [Mass/Vol] 3.5 g/dL Normal 3.4-5.0 [facility] Comment on above: Performed By: #### T 7, CMP, TSH ####[facility] [address] [place] [id number]. Grace Abdul Albumin/Globulin [Mass ratio] 1.1 {ratio} Normal [facility] Comment on above: Performed By: #### T 7, CMP, TSH ####[facility] [address] [place] [address]Dr. Grace Abdul ALP [Catalytic activity/Vol] 69 U/L Normal 46-116 [facility] Comment on above: Performed By: #### T 7, CMP, TSH ####[facility] [address] [place] [address]Dr. Grace Abdul ALT [Catalytic activity/Vol] 51 U/L Normal 14-59 [facility] Comment on above: Performed By: #### T 7, CMP, TSH ####[facility] [address] [place] [address]Dr. Grace Abdul Anion gap [Moles/Vol] 11.5 mmol/L Normal [facility] Comment on above: Performed By: #### T 7, CMP, TSH ####[facility] [address] [place] [address]Dr. Garce Abdul AST [Catalytic activity/Vol] 24 U/L Normal 15-37 [facility] Comment on above: Performed By: #### T 7, CMP, TSH ####[facility] [address] [place] [id number]. Grace Abdul Bilirubin [Mass/Vol] 0.2 mg/dL Normal 0.2-1.0 [facility] Comment on above: Performed By: #### T 7, CMP, TSH ####[facility] [address] [place] [address]Dr. Grace Abdul Calcium [Mass/Vol] 9.3 mg/dL Normal 8.5-10.1 [facility] Comment on above: Performed By: #### T 7, CMP, TSH ####[facility] [address] [place] [address]Dr. Grace Abudl Chloride [Moles/Vol] 98 mmol/L Normal 98-107 [facility] Comment on above: Performed By: #### T 7, CMP, TSH ####[facility] [address] [place] [address]Dr. Grace Abdul CO2 [Moles/Vol] 28.7 mmol/L Normal 21.0-32.0 [facility] Comment on above: Performed By: #### T 7, LEONOR, TSH ####[facility] [address] [place], [place] [address]Dr. Grace Abdul Creatinine [Mass/Vol] 1.11 mg/dL Critically high 0.55-1.02 [facility] Comment on above: Performed By: #### Ainsley 7, LEONOR, TSH ####[facility] [address] [place] [address]Dr. Grace Abdul EGFR-[place] 57 mL/min/1.73m2 Critically low >=60 [facility] Comment on above: Performed By: #### T 7, LEONOR, TSH ####[facility] [address] [place], [place] [address]Dr. Grace Abdul EGFR-NON AF [place]IZ[place] 47 mL/min/1.73m2 Critically low >=60 [facility] Comment on above: Performed By: #### T 7, CMP, TSH ####[facility] [address] [place] [address]Dr. Grace Abdul Globulin (S) [Mass/Vol] 3.3 g/dL Normal [facility] Comment on above: Performed By: #### T 7, CMP, TSH ####[facility] [address] [place] [address]Dr. Grace Abdul Glucose [Mass/Vol] 88 mg/dL Normal 74-106 [facility] Comment on above: Performed By: #### T 7, CMP, TSH ####[facility] [address] [place] [id number]. Grace Abdul Potassium [Moles/Vol] 4.2 mmol/L Normal 3.5-5.1 [facility] Comment on above: Performed By: #### T 7, CMP, TSH ####[facility] [address] [place] [id number]. Grace Abdul Protein [Mass/Vol] 6.8 g/dL Normal 6.4-8.2 [facility] Comment on above: Performed By: #### T 7, CMP, TSH ####[facility] [address] [place] [address]Dr. Grace Abdul Sodium [Moles/Vol] 134 mmol/L Critically low 136-[address] [facility] Comment on above: Performed By: #### T 7, CMP, TSH ####[facility] [address] [place] [address]Dr. Grace Abdul Urea nitrogen [Mass/Vol] 33.0 mg/dL Critically high 7.0-18.0 [facility] Comment on above: Performed By: #### T 7, CMP, TSH ####[facility] [address] [place] [address]Dr. Grace Abdul Urea nitrogen/Creatinine [Mass ratio] 29.7 mg/mg Normal [facility] Comment on above: Performed By: #### T 7, CMP, TSH ####[facility] [address] [place] [address]Dr. Grace Abdul TSHon 11-23-2021 TSH 0.469 uIU/mL Normal 0.358-3.740 [facility] Comment on above: Performed By: #### T 7, CMP, TSH ####[facility] [address] [place] [address]Dr. Grace Abdul CBC AUTO DIFFon 11-17-2021 BASO # 0.0 103/ul Normal 0.0-0.1 [facility] Comment on above: Performed By: #### C VDTBH #### [facility] [address] [address] [address] Grace Abdul Basophils/100 WBC (Bld) 0.2 % Normal 0.2-2.0 [facility] Comment on above: Performed By: #### C VDTBH #### [facility] [address] [place] [address] Dr. Grace Abdul EO # 0.1 103/ul Normal 0.0-0.7 [facility] Comment on above: Performed By: #### C VDTBH #### [facility] [address] [place] [address] Dr. Grace Abdul Eosinophils/100 WBC (Bld) 0.9 % Normal 0.9-7.0 [facility] Comment on above: Performed By: #### C VDTBH #### [facility] [address] [place] [address] Dr. Grace Abdul Erythrocyte distribution width (RBC) [Ratio] 12.8 % Normal 11.0-15.0 [facility] Comment on above: Performed By: #### C VDTBH #### [facility] [address] [place] [address] Dr. Grace Abdul Hematocrit (Bld) [Volume fraction] 35.2 % Critically low 36.0-48.0 [facility] Comment on above: Performed By: #### C VDTBH #### [facility] [address] [place] [address] Dr. Grace Abdul Hemoglobin (Bld) [Mass/Vol] 12.1 g/dL Normal 12.0-16.0 [facility] Comment on above: Performed By: #### C VDTBH #### [facility] [address] [place] [address] Dr. Grace Abdul IG # 0.05 10e3/ul Critically high 0.00-0.03 [facility] Comment on above: Performed By: #### C VDTBH #### [facility] [address] [place] [address] Dr. Grace Abdul IG % 0.6 % Critically high 0.0-0.5 [facility] Comment on above: Performed By: #### C VDTBH #### [facility] [address] [address] [address] Grace Abdul LYMPH # 0.6 103/ul Critically low 1.2-3.8 [facility] Comment on above: Performed By: #### C VDTBH #### [facility] [address] [address] [address] Grace Abdul Lymphocytes/100 WBC (Bld) 7.4 % Critically low 20.5-60.0 [facility] Comment on above: Performed By: #### C VDTBH #### [facility] [address] [address] [address] Grace Abdul MANUAL DIFF REQ NO Normal [facility] Comment on above: Performed By: #### C VDTBH #### [facility] [address] [place] [address] Dr. Grace Abdul MCH (RBC) [Entitic mass] 31.5 pg Normal 26.7-34.0 [facility] Comment on above: Performed By: #### C VDTBH #### [facility] [address] [place] [address] Dr. Grace Abdul MCHC (RBC) [Mass/Vol] 34.4 g/dL Normal 29.9-35.2 [facility] Comment on above: Performed By: #### C VDTBH #### [facility] [address] [place] [address] Dr. Grace Abdul MCV (RBC) [Entitic vol] 91.7 fL Normal 81.0-99.0 [facility] Comment on above: Performed By: #### C VDTBH #### [facility] [address] [address] [address] Grace Abdul MONO # 1.0 103/ul Critically high 0.3-0.8 [facility] Comment on above: Performed By: #### C VDTBH #### [facility] [address] [place] [address] Dr. Grace Abdul Monocytes/100 WBC (Bld) 12.1 % Critically high 1.7-12.0 [facility] Comment on above: Performed By: #### C VDTBH #### [facility] [address] [address] [address] Grace Abdul NEUT # 6.3 103/ul Normal 1.4-6.5 [facility] Comment on above: Performed By: #### C VDTBH #### [facility] [address] [place] [address] Dr. Grace Abdul Neutrophils/100 WBC (Bld) 78.8 % Critically high 43.0-75.0 [facility] Comment on above: Performed By: #### C VDTBH #### [facility] [address] [place] [address] Dr. Grace Abdul Platelet mean volume (Bld) [Entitic vol] 9.1 fL Critically low 9.5-13.5 [facility] Comment on above: Performed By: #### C VDTBH #### [facility] [address] [place] [address] Dr. Grace Abdul PLT 281 103/ul Normal 150-450 [facility] Comment on above: Performed By: #### C VDTBH #### [facility] [address] [place] [address] Dr. Grace Abdul RBC 3.84 106/ul Critically low 4.20-5.[address] [facility] Comment on above: Performed By: #### C VDTBH #### [facility] [address] [place] [address] Dr. Grace Abdul WBC 8.0 103/ul Normal 4.0-11.0 [facility] Comment on above: Performed By: #### C VDTBH #### [facility] [address] [place] [address] Dr. Grace Abdul MAGNESIUMon 11-17-2021 Magnesium [Mass/Vol] 1.9 mg/dL Normal 1.8-2.4 [facility] Comment on above: Performed By: #### C VDTBH #### [facility] [address] [place] [address] Dr. Grace Abdul PROF CHEM 8 (BAS METB)on Anion gap [Moles/Vol] 13.9 mmol/L Normal [facility] Comment on above: Performed By: #### C VDTBH #### [facility] [address] [place] [address] Dr. Grace Abdul Calcium [Mass/Vol] 8.7 mg/dL Normal 8.5-10.1 [facility] Comment on above: Performed By: #### C VDTBH #### [facility] [address] [place] [address] Dr. Grace Abdul Chloride [Moles/Vol] 101 mmol/L Normal 98-107 [facility] Comment on above: Performed By: #### C VDTBH #### [facility] [address] [place] [address] Dr. Grace Abdul CO2 [Moles/Vol] 24.3 mmol/L Normal 21.0-32.0 [facility] Comment on above: Performed By: #### C VDTBH #### [facility] [address] [place] [address] Dr. Grace Abdul Creatinine [Mass/Vol] 0.89 mg/dL Normal 0.55-1.02 [facility] Comment on above: Performed By: #### C VDTBH #### [facility] [address] [place] [address] Dr. Grace Abdul EGFR-AF [place]IZ[place] >60 Normal >=60 [facility] Comment on above: Performed By: #### C VDTBH #### [facility] [address] [place] [address] Dr. Grace Abdul EGFR-NON AF [place]IZ[place] >60 Normal >=60 [facility] Comment on above: Performed By: #### C VDTBH #### [facility] [address] [place] [address] Dr. Grace Abdul Glucose [Mass/Vol] 97 mg/dL Normal 74-106 [facility] Comment on above: Performed By: #### C VDTBH #### [facility] [address] [place] [address] Dr. Grace Abdul Potassium [Moles/Vol] 3.2 mmol/L Critically low 3.5-5.1 [facility] Comment on above: Performed By: #### C VDTBH #### [facility] [address] [place] [address] Dr. Grace Abdul Sodium [Moles/Vol] 136 mmol/L Normal 136-145 [facility] Comment on above: Performed By: #### C VDTBH #### [facility] [address] [place] [address] Dr. Grace Abdul Urea nitrogen [Mass/Vol] 14.0 mg/dL Normal 7.0-18.0 [facility] Comment on above: Performed By: #### C VDTBH #### [facility] [address] [place] [address] Dr. Grace Abdul Urea nitrogen/Creatinine [Mass ratio] 15.7 mg/mg Normal [facility] Comment on above: Performed By: #### C VDTBH #### [facility] [address] [place] [address] Dr. Grace Abdul CBC AUTO DIFFon 11-16-2021 BASO # 0.0 103/ul Normal 0.0-0.1 [facility] Comment on above: Performed By: #### B MP #### [facility] [address] [place] [address] Dr. Grace Abdul Basophils/100 WBC (Bld) 0.2 % Normal 0.2-2.0 [facility] Comment on above: Performed By: #### B MP #### [facility] [address] [place] [address] Dr. Grace Abdul EO # 0.0 103/ul Normal 0.0-0.7 [facility] Comment on above: Performed By: #### B MP #### [facility] [address] [place] [address] Dr. Grace Abdul Eosinophils/100 WBC (Bld) 0.5 % Critically low 0.9-7.0 [facility] Comment on above: Performed By: #### B MP #### [facility] [address] [place] [address] Dr. Grace Abdul Erythrocyte distribution width (RBC) [Ratio] 12.4 % Normal 11.0-15.0 [facility] Comment on above: Performed By: #### B MP #### [facility] [address] [place] [address] Dr. Grace Abdlu Hematocrit (Bld) [Volume fraction] 33.6 % Critically low 36.0-48.0 [facility] Comment on above: Performed By: #### B MP #### [facility] [address] [place] [address] Dr. Grace Abdul Hemoglobin (Bld) [Mass/Vol] 11.8 g/dL Critically low 12.0-16.0 [facility] Comment on above: Performed By: #### B MP #### [facility] [address] [place] [address] Dr. Grace Abdul IG # 0.04 10e3/ul Critically high 0.00-0.03 [facility] Comment on above: Performed By: #### B MP #### [facility] [address] [place] [address] Dr. Grace Abdul IG % 0.7 % Critically high 0.0-0.[address] [facility] Comment on above: Performed By: #### B MP #### [facility] [address] [place] [address] Dr. Grcae Abdul LYMPH # 0.7 103/ul Critically low 1.2-3.8 [facility] Comment on above: Performed By: #### B MP #### [facility] [address] [place] [address] Dr. Grace Abdul Lymphocytes/100 WBC (Bld) 11.1 % Critically low 20.5-60.0 [facility] Comment on above: Performed By: #### B MP #### [facility] [address] [place] [address] Dr. Grace Abdul MANUAL DIFF REQ NO Normal [facility] Comment on above: Performed By: #### B MP #### [facility] [address] [place] [address] Dr. Grace Abdul MCH (RBC) [Entitic mass] 31.5 pg Normal 26.7-34.0 [facility] Comment on above: Performed By: #### B MP #### [facility] [address] [place] [address] Dr. Grace Abdul MCHC (RBC) [Mass/Vol] 35.1 g/dL Normal 29.9-35.2 [facility] Comment on above: Performed By: #### B MP #### [facility] [address] [place] [address] Dr. Grace Abdul MCV (RBC) [Entitic vol] 89.6 fL Normal 81.0-99.0 [facility] Comment on above: Performed By: #### B MP #### [facility] [address] [place] [address] Dr. Grace Abdul MONO # 0.9 103/ul Critically high 0.3-0.8 [facility] Comment on above: Performed By: #### B MP #### [facility] [address] [place] [address] Dr. Grace Abdul Monocytes/100 WBC (Bld) 14.0 % Critically high 1.7-12.0 [facility] Comment on above: Performed By: #### B MP #### [facility] [address] [place] [address] Dr. Grace Abdlu NEUT # 4.5 103/ul Normal 1.4-6.5 [facility] Comment on above: Performed By: #### B MP #### [facility] [address] [place] [address] Dr. Grace Abdul Neutrophils/100 WBC (Bld) 73.5 % Normal 43.0-75.0 [facility] Comment on above: Performed By: #### B MP #### [facility] [address] [place] [address] Dr. Grace Abdul Platelet mean volume (Bld) [Entitic vol] 9.3 fL Critically low 9.5-13.5 [facility] Comment on above: Performed By: #### B MP #### [facility] [address] [place] [address] Dr. Grace Abdul PLT 292 103/ul Normal 150-450 [facility] Comment on above: Performed By: #### B MP #### [facility] [address] [address] [address] Grace Abdul RBC 3.75 106/ul Critically low 4.20-5.[address] [facility] Comment on above: Performed By: #### B MP #### [facility] [address] [address] [address] Grace Abdul WBC 6.1 103/ul Normal 4.0-11.0 [facility] Comment on above: Performed By: #### B MP #### [facility] [address] [address] [address] Grace Abdul CULTURE URINEon 11-16-2021 CULTURE URINE Culture Observations : LIGHT GROWTH OF MIXED GENITAL ALANIS. NO POTENTIAL PATHOGENS SEEN. Normal [facility] Comment on above: Performed By: #### U RCX ####[facility] [id number] [address]Dr. Grace Abdul ER URINE PROFILEon Bilirubin Ql (U) Negative Normal [facility] Comment on above: Performed By: #### C VDTBH #### [facility] [address] [address] [address] Grace Abdul Clarity (U) CLEAR Normal CLEAR [facility] Comment on above: Performed By: #### C VDTBH #### [facility] [address] [address] [address] Grace Abdul Color (U) LT. YELLOW Normal YELLOW [facility] Comment on above: Performed By: #### C VDTBH #### [facility] [address] [address] [address] Grace Abdul ERUAHD A micrscopic examination will be performed if indicated. Normal [facility] Comment on above: Performed By: #### C VDTBH #### [facility] [address] [address] [address] Grace Abdul Glucose Ql (U) Negative Normal NEGATIVE [facility] Comment on above: Performed By: #### C VDTBH #### [facility] [address] [place] [address] Dr. Grace Abdul Hemoglobin Ql (U) SMALL Abnormal NEGATIVE [facility] Comment on above: Performed By: #### C VDTBH #### [facility] [address] [place] [address] Dr. Grace Abdul Ketones Ql (U) 40 mg/dl Abnormal NEGATIVE [facility] Comment on above: Performed By: #### C VDTBH #### [facility] [address] [place] [address] Dr. Grace Abdul LEUKOCYTES SMALL Abnormal NEGATIVE [facility] Comment on above: Performed By: #### C VDTBH #### [facility] [address] [place] [address] Dr. Grace Abdul Nitrite Ql (U) Negative Normal NEGATIVE [facility] Comment on above: Performed By: #### C VDTBH #### [facility] [address] [place] [address] Dr. Grace Abdul pH (U) 7.0 [pH] Normal 5-9 [facility] Comment on above: Performed By: #### C VDTBH #### [facility] [address] [place] [address] Dr. Grace Abdul SPEC GRAVITY 1.010 Normal 1.005-<=1.[address] [facility] Comment on above: Performed By: #### C VDTBH #### [facility] [address] [place] [address] Dr. Grace Abdul UA PROTEIN Negative Normal NEGATIVE/ TRACE [facility] Comment on above: Performed By: #### C VDTBH #### [facility] [address] [place] [address] Dr. Grace Abdul UR MICRO IND INDICATED Normal [facility] Comment on above: Performed By: #### C VDTBH #### [facility] [address] [place] [address] Dr. Grace Abdul Urobilinogen Qn (U) 0.2 {Ashley'U}/dL Normal 0.2 - 1. 0 [facility] Comment on above: Performed By: #### C VDTBH #### [facility] [address] [place] [address] Dr. Grace Abdul MAGNESIUMon 11-16-2021 Magnesium [Mass/Vol] 1.8 mg/dL Normal 1.8-2.4 [facility] Comment on above: Performed By: #### C VDTBH #### [facility] [address] [place] [address] Dr. Grace Abdul PROF CHEM 8 (BAS METB)on Anion gap [Moles/Vol] 12.7 mmol/L Normal [facility] Comment on above: Performed By: #### B MP #### [facility] [address] [place] [address] Dr. Grace Abdul Calcium [Mass/Vol] 8.3 mg/dL Critically low 8.5-10.1 [facility] Comment on above: Performed By: #### B MP #### [facility] [address] [place] [address] Dr. Grace Abdul CO2 [Moles/Vol] 24.4 mmol/L Normal 21.0-32.0 [facility] Comment on above: Performed By: #### B MP #### [facility] [address] [place] [address] Dr. Grace Abdul Creatinine [Mass/Vol] 1.16 mg/dL Critically high 0.55-1.02 [facility] Comment on above: Performed By: #### B MP #### [facility] [address] [place] [address] Dr. Grace Abdul EGFR-AF [place] 54 mL/min/1.73m2 Critically low >=60 [facility] Comment on above: Performed By: #### B MP #### [facility] [address] [place] [address] Dr. Grace Abdul EGFR-NON AF [place]IZ[place] 45 mL/min/1.73m2 Critically low >=60 [facility] Comment on above: Performed By: #### B MP #### [facility] [address] [place] [address] Dr. Grace Abdul Glucose [Mass/Vol] 116 mg/dL Critically high 74-106 [facility] Comment on above: Performed By: #### B MP #### [facility] [address] [address] [address] Grace Abdul Urea nitrogen [Mass/Vol] 20.0 mg/dL Critically high 7.0-18.0 [facility] Comment on above: Performed By: #### B MP #### [facility] [address] [address] [address] Grace Abdul Urea nitrogen/Creatinine [Mass ratio] 17.2 mg/mg Normal [facility] Comment on above: Performed By: #### B MP #### [facility] [address] [address] [address] Grace Abdul Anion gap [Moles/Vol] 10.0 mmol/L Normal [facility] Comment on above: Performed By: #### B MP #### [facility] [address] [address] [address] Grace Abdul Calcium [Mass/Vol] 8.8 mg/dL Normal 8.5-10.1 [facility] Comment on above: Performed By: #### B MP #### [facility] [address] [address] [address] Grace Abdul Chloride [Moles/Vol] 96 mmol/L Critically low 98-107 [facility] Comment on above: Performed By: #### B MP #### [facility] [address] [address] [address] Grace Abdul CO2 [Moles/Vol] 26.1 mmol/L Normal 21.0-32.0 [facility] Comment on above: Performed By: #### B MP #### [facility] [address] [address] [address] Grace Abdul Creatinine [Mass/Vol] 1.11 mg/dL Critically high 0.55-1.02 [facility] Comment on above: Performed By: #### B MP #### [facility] [address] [address] [address] Grace Abdul EGFR-AF [place] 57 mL/min/1.73m2 Critically low >=60 [facility] Comment on above: Performed By: #### B MP #### [facility] [address] [address] [address] Grace Abdul EGFR-NON AF [place] 47 mL/min/1.73m2 Critically low >=60 [facility] Comment on above: Performed By: #### B MP #### [facility] [address] [address] [address] Grace Abdul Glucose [Mass/Vol] 94 mg/dL Normal 74-106 [facility] Comment on above: Performed By: #### B MP #### [facility] [address] [address] [address] Grace Abdul Potassium [Moles/Vol] 3.1 mmol/L Critically low 3.5-5.1 [facility] Comment on above: Performed By: #### B MP #### [facility] [address] [address] [address] Grace Abdul Performed By: #### C VDTBH #### [facility] [address] [place] [address] Dr. Grace Abdul Sodium [Moles/Vol] 129 mmol/L Critically low 136-[address] [facility] Comment on above: Performed By: #### B MP #### [facility] [address] [place] [address] Dr. Grace Abdul Urea nitrogen [Mass/Vol] 16.0 mg/dL Normal 7.0-18.0 [facility] Comment on above: Performed By: #### B MP #### [facility] [address] [address] [address] Grace Abdul Urea nitrogen/Creatinine [Mass ratio] 14.4 mg/mg Normal [facility] Comment on above: Performed By: #### B MP #### [facility] [address] [address] [address] Grace Abdul Anion gap [Moles/Vol] 12.6 mmol/L Normal [facility] Comment on above: Performed By: #### C VDTBH #### [facility] [address] [address] [address] Grace Abdul Calcium [Mass/Vol] 8.6 mg/dL Normal 8.5-10.1 [facility] Comment on above: Performed By: #### C VDTBH #### [facility] [address] [place] [address] Dr. Grace Abdul Chloride [Moles/Vol] 95 mmol/L Critically low 98-107 [facility] Comment on above: Performed By: #### B MP #### [facility] [address] [address] [address] Grace Abdul Performed By: #### C VDTBH #### [facility] [address] [place] [address] Dr. Grace Abdul CO2 [Moles/Vol] 22.5 mmol/L Normal 21.0-32.0 [facility] Comment on above: Performed By: #### C VDTBH #### [facility] [address] [place] [address] Dr. Grace Abdul Creatinine [Mass/Vol] 0.95 mg/dL Normal 0.55-1.02 [facility] Comment on above: Performed By: #### C VDTBH #### [facility] [address] [place] [address] Dr. Grace Abdul EGFR-AF [place] >60 Normal >=60 [facility] Comment on above: Performed By: #### C VDTBH #### [facility] [address] [place] [address] Dr. Grace Abdul EGFR-NON AF [place] 56 mL/min/1.73m2 Critically low >=60 [facility] Comment on above: Performed By: #### C VDTBH #### [facility] [address] [address] [address] Grace Abdul Glucose [Mass/Vol] 92 mg/dL Normal 74-106 [facility] Comment on above: Performed By: #### C VDTBH #### [facility] [address] [place] [address] Dr. Grace Abdul Sodium [Moles/Vol] 127 mmol/L Critically low 136-145 [facility] Comment on above: Performed By: #### C VDTBH #### [facility] [address] [place] [address] Dr. Grace Abdul Urea nitrogen [Mass/Vol] 18.0 mg/dL Normal 7.0-18.0 [facility] Comment on above: Performed By: #### C VDTBH #### [facility] [address] [place] [address] Dr. Grace Abdul Urea nitrogen/Creatinine [Mass ratio] 18.9 mg/mg Normal [facility] Comment on above: Performed By: #### C VDTBH #### [facility] [address] [place] [address] Dr. Grace Abdul URINE MICROSCOPIC ONLYon BACTERIA TRACE Abnormal NONE SEEN [facility] Comment on above: Performed By: #### C VDTBH #### [facility] [address] [place] [address] Dr. Grace Abdul Bacteria identified Cx Nom (U) INDICATED Normal [facility] Comment on above: Performed By: #### C VDTBH #### [facility] [address] [place] [address] Dr. Grace Abdul CAST NONE SEEN Normal NONE SEEN [facility] Comment on above: Performed By: #### C VDTBH #### [facility] [address] [place] [address] Dr. Grace Abdul Crystals LM Nom (Urine sed) NONE SEEN Normal NONE SEEN [facility] Comment on above: Performed By: #### C VDTBH #### [facility] [address] [place] [address] Dr. Grace Abdul Epithelial cells LM Ql (Urine sed) FEW Abnormal NONE SEEN /RARE [facility] Comment on above: Performed By: #### C VDTBH #### [facility] [address] [place] [address] Dr. Grace Abdul MUCOUS NONE SEEN Normal NONE SEEN [facility] Comment on above: Performed By: #### C VDTBH #### [facility] [address] [place] [address] Dr. Grace Abdul RBC 2-5 Abnormal 0-2 [facility] Comment on above: Performed By: #### C VDTBH #### [facility] [address] [place] [address] Dr. Grace Abdul WBC 5-10 Abnormal NONE SEEN [facility] Comment on above: Performed By: #### C VDTBH #### [facility] [address] [place] [address] Dr. Grace Abdul AMYLASEon 11-15-2021 Amylase [Catalytic activity/Vol] 94 U/L Normal 25-115 [facility] Comment on above: Performed By: #### C VDTBH #### [facility] [address] [place] [address] Dr. Grace Abdul BNPon 11-15-2021 Natriuretic peptide B (Bld) [Mass/Vol] 357.0 pg/mL Normal <=1,800.0 [facility] Comment on above: Performed By: #### C VDTBH #### [facility] [address] [place] [address] Dr. Grace Abdul CARDIAC JOVITA ADMITon 022 CK [Catalytic activity/Vol] 66 U/L Normal 26-192 [facility] Comment on above: Performed By: #### C VDTBH #### [facility] [address] [place] [address] Dr. Grace Abdul CK.MB [Mass/Vol] 2.19 ng/mL Normal <=3.60 [facility] Comment on above: Performed By: #### C VDTBH #### [facility] [address] [place] [address] Dr. Grace Abdul HSTROP 9.5 pg/mL Normal 4.0-51.3 [facility] Comment on above: Result Comment: CUT- OFF POINTS HAVE BEEN ESTABLISHED BASED ON THE FOURTH UNIVERSAL DEFINITIONS OF MYOCARDIAL INFARCTION. THE UPPER REFERENCE LIMIT (URL) OF TROPONIN, DEFINED THE 99TH PERCENTILE OF cTnI DISTRIBUTION IN A REFERENCE POPULATION, HAS BEEN CONFIRMED THE DECISION THRESHOLD FOR ID DIAGNOSIS. Performed By: #### C VDTBH #### [facility] [address] [place] [address] Dr. Grace Abdul JOHNNA 73 ng/mL Normal 9-82 [facility] Comment on above: Performed By: #### C VDTB #### [facility] [address] [place] [address] Dr. Grace Abdul CBC AUTO DIFFon 11-15-2021 BASO # 0.0 103/ul Normal 0.0-0.1 [facility] Comment on above: Performed By: #### B MP #### [facility] [address] [place] [address] Dr. Grace Abdul Basophils/100 WBC (Bld) 0.1 % Critically low 0.2-2.0 [facility] Comment on above: Performed By: #### B MP #### [facility] [address] [place] [address] Dr. Grace Abdul EO # 0.0 103/ul Normal 0.0-0.7 [facility] Comment on above: Performed By: #### B MP #### [facility] [address] [place] [address] Dr. rGace Abdul Eosinophils/100 WBC (Bld) 0.1 % Critically low 0.9-7.0 [facility] Comment on above: Performed By: #### B MP #### [facility] [address] [place] [address] Dr. Grace Abdul Erythrocyte distribution width (RBC) [Ratio] 11.9 % Normal 11.0-15.0 [facility] Comment on above: Performed By: #### B MP #### [facility] [address] [place] [address] Dr. Grace Abdul Hematocrit (Bld) [Volume fraction] 36.6 % Normal 36.0-48.0 [facility] Comment on above: Performed By: #### B MP #### [facility] [address] [place] [address] Dr. Grace Abdul Hemoglobin (Bld) [Mass/Vol] 13.2 g/dL Normal 12.0-16.0 [facility] Comment on above: Performed By: #### B MP #### [facility] [address] [place] [address] Dr. Grace Abdul IG # 0.05 10e3/ul Critically high 0.00-0.03 [facility] Comment on above: Performed By: #### B MP #### [facility] [address] [place] [address] Dr. Grace Abdul IG % 0.7 % Critically high 0.0-0.[address] [facility] Comment on above: Performed By: #### B MP #### [facility] [address] [address] [address] Grace Abdul LYMPH # 0.7 103/ul Critically low 1.2-3.8 [facility] Comment on above: Performed By: #### B MP #### [facility] [address] [place] [address] Dr. Grace Abdul Lymphocytes/100 WBC (Bld) 9.8 % Critically low 20.5-60.0 [facility] Comment on above: Performed By: #### B MP #### [facility] [address] [place] [address] Dr. Grace Abdul MANUAL DIFF REQ NO Normal [facility] Comment on above: Performed By: #### B MP #### [facility] [address] [place] [address] Dr. Grace Abdul MCH (RBC) [Entitic mass] 31.5 pg Normal 26.7-34.0 [facility] Comment on above: Performed By: #### B MP #### [facility] [address] [place] [address] Dr. Grace Abdul MCHC (RBC) [Mass/Vol] 36.1 g/dL Critically high 29.9-35.2 [facility] Comment on above: Performed By: #### B MP #### [facility] [address] [place] [address] Dr. Grace Abdul MCV (RBC) [Entitic vol] 87.4 fL Normal 81.0-99.0 [facility] Comment on above: Performed By: #### B MP #### [facility] [address] [place] [address] Dr. Grace Abdul MONO # 0.9 103/ul Critically high 0.3-0.8 [facility] Comment on above: Performed By: #### B MP #### [facility] [address] [place] [address] Dr. Grace Abdul Monocytes/100 WBC (Bld) 12.4 % Critically high 1.7-12.0 [facility] Comment on above: Performed By: #### B MP #### [facility] [address] [place] [address] Dr. Grace Abdul NEUT # 5.8 103/ul Normal 1.4-6.5 [facility] Comment on above: Performed By: #### B MP #### [facility] [address] [place] [address] Dr. Grace Abdul Neutrophils/100 WBC (Bld) 76.9 % Critically high 43.0-75.0 [facility] Comment on above: Performed By: #### B MP #### [facility] [address] [place] [address] Dr. Grace Abdul Platelet mean volume (Bld) [Entitic vol] 9.0 fL Critically low 9.5-13.5 [facility] Comment on above: Performed By: #### B MP #### [facility] [address] [place] [address] Dr. Grace Abdul PLT 361 103/ul Normal 150-450 [facility] Comment on above: Performed By: #### B MP #### [facility] [address] [place] [address] Dr. Grace Abdul RBC 4.19 106/ul Critically low 4.20-5.40 [facility] Comment on above: Performed By: #### B MP #### [facility] [address] [place] [address] Dr. Grace Abdul WBC 7.6 103/ul Normal 4.0-11.0 [facility] Comment on above: Performed By: #### B MP #### [facility] [address] [place] [address] Dr. Grace Abdul [facility] SARS-CoV-2 (COVID-19) RNA LUISITO+probe Ql (Unsp spec) Not detected Normal NOT DETECTED [facility] Comment on above: Result Comment: When [...] for this test is supported by the [place] of [employer] and Human Service's declaration that [...] used). Performed By: #### C VDTBH #### [facility] [address] [place] [address] Dr. Grace Abdul LIPASEon 11-15-2021 Lipase [Catalytic activity/Vol] 178.0 U/L Normal 73.0-393.0 [facility] Comment on above: Performed By: #### C VDTBH #### [facility] [address] [place] [address] Dr. Grace Abdul PROF 14(COMP METB)on 022 Albumin [Mass/Vol] 4.1 g/dL Normal 3.4-5.0 [facility] Comment on above: Performed By: #### C VDTBH #### [facility] [address] [place] [address] Dr. Grace Abdul Albumin/Globulin [Mass ratio] 1.2 {ratio} Normal [facility] Comment on above: Performed By: #### C VDTBH #### [facility] [address] [place] [address] Dr. Grace Abdul ALP [Catalytic activity/Vol] 63 U/L Normal 46-116 [facility] Comment on above: Performed By: #### C VDTBH #### [facility] [address] [address] [address] Grace Abdul ALT [Catalytic activity/Vol] 29 U/L Normal 14-59 [facility] Comment on above: Performed By: #### C VDTBH #### [facility] [address] [address] [address] Grace Abdul Anion gap [Moles/Vol] 14.8 mmol/L Normal [facility] Comment on above: Performed By: #### C VDTBH #### [facility] [address] [address] [address] Grace Abdul AST [Catalytic activity/Vol] 25 U/L Normal 15-37 [facility] Comment on above: Performed By: #### C VDTBH #### [facility] [address] [address] [address] Grace Abdul Bilirubin [Mass/Vol] 0.6 mg/dL Normal 0.2-1.0 [facility] Comment on above: Performed By: #### C VDTBH #### [facility] [address] [address] [address] Grace Abdul Calcium [Mass/Vol] 9.4 mg/dL Normal 8.5-10.1 [facility] Comment on above: Performed By: #### C VDTBH #### [facility] [address] [address] [address] Grace Abdul Chloride [Moles/Vol] 83 mmol/L Critically low 98-107 [facility] Comment on above: Performed By: #### C VDTBH #### [facility] [address] [address] [address] Grace Abdul CO2 [Moles/Vol] 24.4 mmol/L Normal 21.0-32.0 [facility] Comment on above: Performed By: #### C VDTBH #### [facility] [address] [address] [address] Grace Abdul Creatinine [Mass/Vol] 1.15 mg/dL Critically high 0.55-1.02 [facility] Comment on above: Performed By: #### C VDTBH #### [facility] [address] [address] [address] Grace Abdul EGFR-AF [place] 55 mL/min/1.73m2 Critically low >=60 [facility] Comment on above: Performed By: #### C VDTBH #### [facility] [address] [address] [address] Grace Abdul EGFR-NON AF [place]IZ[place] OF [place] 45 mL/min/1.73m2 Critically low >=60 [facility] Comment on above: Performed By: #### C VDTBH #### [facility] [address] [address] [address] Grace Abdul Globulin (S) [Mass/Vol] 3.4 g/dL Normal [facility] Comment on above: Performed By: #### C VDTBH #### [facility] [address] [address] [address] Grace Abdul Glucose [Mass/Vol] 147 mg/dL Critically high 74-106 [facility] Comment on above: Performed By: #### C VDTBH #### [facility] [address] [address] [address] Grace Abdul Potassium [Moles/Vol] 3.2 mmol/L Critically low 3.5-5.1 [facility] Comment on above: Performed By: #### C VDTBH #### [facility] [address] [address] [address] Grace Abdul Protein [Mass/Vol] 7.5 g/dL Normal 6.4-8.2 [facility] Comment on above: Performed By: #### C VDTBH #### [facility] [address] [address] [address] Grace Abdul Urea nitrogen/Creatinine [Mass ratio] 21.7 mg/mg Normal [facility] Comment on above: Performed By: #### C VDTBH #### [facility] [address] [address] [address] Grace Abdul PROF CHEM 8 (BAS METB)on Anion gap [Moles/Vol] 13.6 mmol/L Normal [facility] Comment on above: Performed By: #### C VDTBH #### [facility] [address] [place] [address] Dr. Grace Abdul Calcium [Mass/Vol] 8.8 mg/dL Normal 8.5-10.1 [facility] Comment on above: Performed By: #### C VDTBH #### [facility] [address] [place] [address] Dr. Grace Abdul Chloride [Moles/Vol] 88 mmol/L Critically low 98-107 [facility] [facility] Comment on above: Performed By: #### C VDTBH #### [facility] [address] [place] [address] Dr. Grace Abdul CO2 [Moles/Vol] 21.8 mmol/L Normal 21.0-32.0 [facility] Comment on above: Performed By: #### C VDTBH #### [facility] [address] [place] [address] Dr. Grace Abdul Creatinine [Mass/Vol] 1.11 mg/dL Critically high 0.55-1.02 [facility] Comment on above: Performed By: #### C VDTBH #### [facility] [address] [place] [address] Dr. Grace Abdul EGFR-[place] 57 mL/min/1.73m2 Critically low >=60 [facility] Comment on above: Performed By: #### C VDTBH #### [facility] [address] [place] [address] Dr. Grace Abdul EGFR-NON AF [place]IZ[place] 47 mL/min/1.73m2 Critically low >=60 [facility] Comment on above: Performed By: #### C VDTBH #### [facility] [address] [place] [address] Dr. Grace Abdul Glucose [Mass/Vol] 132 mg/dL Critically high 74-106 [facility] Comment on above: Performed By: #### C VDTBH #### [facility] [address] [place] [address] Dr. Grace Abdul Potassium [Moles/Vol] 3.4 mmol/L Critically low 3.5-5.1 [facility] Comment on above: Performed By: #### C VDTBH #### [facility] [address] [place] [address] Dr. Grace Abdul Sodium [Moles/Vol] 120 mmol/L Critically low 136-145 Th [facility] Comment on above: Result Comment: Test Repeated. Critical Value Verified Performed By: #### C VDTBH #### [facility] [address] [place] [address] Dr. Grace Abdul Urea nitrogen [Mass/Vol] 25.0 mg/dL Critically high 7.0-18.0 [facility] Comment on above: Performed By: #### C VDTBH #### [facility] [address] [place] [address] Dr. Grace Abdul Urea nitrogen/Creatinine [Mass ratio] 22.5 mg/mg Normal [facility] Comment on above: Performed By: #### C VDTBH #### [facility] [address] [place] [address] Dr. Grace Abdul PROTIMEon 11-15-2021 INR Coag (PPP) [Relative time] 0.94 {INR} Normal [facility] Comment on above: Performed By: #### C VDTBH #### [facility] [address] [place] [address] Dr. Grace Abudl INR GUIDELINES SEE BELOW Normal [facility] Comment on above: Result Comment: DURAN RED INR: 2.0 - 3.0 CONDITIONS NOT LISTED BELOW 2.5 - 3.5 FOR PROSTHETIC HEART VALVE REPLACEMENT 2.5 - 3.5 RECURRENT THROMBOSIS Performed By: #### C VDTBH #### [facility] [address] [place] [address] Dr. Grace Abdul PT Coag (PPP) [Time] 10.2 s Normal 9.0-11.6 [facility] Comment on above: Performed By: #### C VDTBH #### [facility] [address] [place] [address] Dr. Grace Abdul XR ABD FLAT UP_PA [...] JARET LINARES Date: 2021-11-15 13:56 Normal [facility] BNPon 11-11-2021 Natriuretic peptide B (Bld) [Mass/Vol] 546.0 pg/mL Normal <=1,800.0 [facility] Comment on above: Performed By: #### C MP, TSH, HSTROPN, BNP ####[facility] [id number] [place] [address]Dr. Grace Abdul CBC AUTO DIFFon 11-11-2021 BASO # 0.0 103/ul Normal 0.0-0.1 [facility] Comment on above: Performed By: #### C BC #### [facility] [address] [address] [address] Grace Abdul Basophils/100 WBC (Bld) 0.3 % Normal 0.2-2.0 [facility] Comment on above: Performed By: #### C BC #### [facility] [address] [address] [address] Grace Abdul EO # 0.0 103/ul Normal 0.0-0.7 [facility] Comment on above: Performed By: #### C BC #### [facility] [address] [address] [address] Grace Abdul Eosinophils/100 WBC (Bld) 0.5 % Critically low 0.9-7.0 [facility] Comment on above: Performed By: #### C BC #### [facility] [address] [place] [address] Dr. Grace Abdul Erythrocyte distribution width (RBC) [Ratio] 12.9 % Normal 11.0-15.0 [facility] Comment on above: Performed By: #### C BC #### [facility] [address] [place] [address] Dr. Grace Abdul Hematocrit (Bld) [Volume fraction] 36.1 % Normal 36.0-48.0 [facility] Comment on above: Performed By: #### C BC #### [facility] [address] [place] [address] Dr. Grace Abdul Hemoglobin (Bld) [Mass/Vol] 12.3 g/dL Normal 12.0-16.0 [facility] Comment on above: Performed By: #### C BC #### [facility] [address] [place] [address] Dr. Grace Abdul IG # 0.01 10e3/ul Normal 0.00-0.03 [facility] Comment on above: Performed By: #### C BC #### [facility] [address] [place] [address] Dr. Grace Abdul IG % 0.3 % Normal 0.0-0.5 [facility] Comment on above: Performed By: #### C BC #### [facility] [address] [place] [address] Dr. Grace Abdul LYMPH # 0.6 103/ul Critically low 1.2-3.8 [facility] Comment on above: Performed By: #### C BC #### [facility] [address] [place] [address] Dr. Grace Abdul Lymphocytes/100 WBC (Bld) 14.8 % Critically low 20.5-60.0 [facility] Comment on above: Performed By: #### C BC #### [facility] [address] [place] [address] Dr. Grace Abdul MANUAL DIFF REQ NO Normal [facility] Comment on above: Performed By: #### C BC #### [facility] [address] [place] [address] Dr. Grace Abdul MCH (RBC) [Entitic mass] 31.5 pg Normal 26.7-34.0 [facility] Comment on above: Performed By: #### C BC #### [facility] [address] [place] [address] Dr. Grace Abdul MCHC (RBC) [Mass/Vol] 34.1 g/dL Normal 29.9-35.2 [facility] Comment on above: Performed By: #### C BC #### [facility] [address] [place] [address] Dr. Grace Abdul MCV (RBC) [Entitic vol] 92.6 fL Normal 81.0-99.0 [facility] Comment on above: Performed By: #### C BC #### [facility] [address] [place] [address] Dr. Grace Abdul MONO # 0.5 103/ul Normal 0.3-0.8 [facility] Comment on above: Performed By: #### C BC #### [facility] [address] [place] [address] Dr. Grace Abdul Monocytes/100 WBC (Bld) 13.5 % Critically high 1.7-12.0 [facility] Comment on above: Performed By: #### C BC #### [facility] [address] [place] [address] Dr. Grace Abdul NEUT # 2.7 103/ul Normal 1.4-6.5 [facility] Comment on above: Performed By: #### C BC #### [facility] [address] [place] [address] Dr. Grace Abdul Neutrophils/100 WBC (Bld) 70.6 % Normal 43.0-75.0 [facility] Comment on above: Performed By: #### C BC #### [facility] [address] [place] [address] Dr. Grace Abdul Platelet mean volume (Bld) [Entitic vol] 9.2 fL Critically low 9.5-13.5 [facility] Comment on above: Performed By: #### C BC #### [facility] [address] [place] [address] Dr. Grace Abdul PLT 279 103/ul Normal 150-450 [facility] Comment on above: Performed By: #### C BC #### [facility] [address] [place] [address] Dr. Grace Abdul RBC 3.90 106/ul Critically low 4.20-5.[address] [facility] Comment on above: Performed By: #### C BC #### [facility] [address] [place] [address] Dr. Grace Abdul WBC 3.9 103/ul Critically low 4.0-11.0 [facility] Comment on above: Performed By: #### C BC #### [facility] [address] [place] [address] Dr. Grace Abdul PROF 14(COMP METB)on 022 Albumin [Mass/Vol] 3.3 g/dL Critically low 3.4-5.[address] [facility] Comment on above: Performed By: #### C MP, TSH, HSTROPN, BNP #### [facility] [address] [place] [address] Dr. Grace Abdul Albumin/Globulin [Mass ratio] 1.2 {ratio} [facility] Comment on above: Performed By: #### C MP, TSH, HSTROPN, BNP #### [facility] [address] [place] [address] Dr. Grace Abdul ALP [Catalytic activity/Vol] 60 U/L Normal 46-116 [facility] Comment on above: Performed By: #### C MP, TSH, HSTROPN, BNP #### [facility] [address] [place] [address] Dr. Grace Abdul ALT [Catalytic activity/Vol] 26 U/L Normal 14-59 [facility] Comment on above: Performed By: #### C MP, TSH, HSTROPN, BNP #### [facility] [address] [place] [address] Dr. Grace Abdul Anion gap [Moles/Vol] 14.8 mmol/L Normal [facility] Comment on above: Performed By: #### C MP, TSH, HSTROPN, BNP #### [facility] [address] [place] [address] Dr. Grace Abdul AST [Catalytic activity/Vol] 20 U/L Normal 15-37 [facility] Comment on above: Performed By: #### C MP, TSH, HSTROPN, BNP #### [facility] [address] [place] [address] Dr. Grace Abdul Bilirubin [Mass/Vol] 0.3 mg/dL Normal 0.2-1.0 [facility] Comment on above: Performed By: #### C MP, TSH, HSTROPN, BNP #### [facility] [address] [place] [address] Dr. Grace Abdul Calcium [Mass/Vol] 8.2 mg/dL Critically low 8.5-10.1 [facility] Comment on above: Performed By: #### C MP, TSH, HSTROPN, BNP #### [facility] [address] [place] [address] Dr. Grace Abdul Chloride [Moles/Vol] 100 mmol/L Normal 98-107 [facility] Comment on above: Performed By: #### C MP, TSH, HSTROPN, BNP #### [facility] [address] [place] [address] Dr. Grace Abdul CO2 [Moles/Vol] 23.8 mmol/L Normal 21.0-32.0 [facility] Comment on above: Performed By: #### C MP, TSH, HSTROPN, BNP #### [facility] [address] [place] [address] Dr. Grace Abdul Creatinine [Mass/Vol] 1.27 mg/dL Critically high 0.55-1.02 [facility] Comment on above: Performed By: #### C MP, TSH, HSTROPN, BNP #### [facility] [address] [place] [address] Dr. Grace Abdul EGFR-AF [place] 49 mL/min/1.73m2 Critically low >=60 [facility] Comment on above: Performed By: #### C MP, TSH, HSTROPN, BNP #### [facility] [address] [place] [address] Dr. Grace Abdul EGFR-NON AF [place] 40 mL/min/1.73m2 Critically low >=60 [facility] Comment on above: Performed By: #### C MP, TSH, HSTROPN, BNP #### [facility] [address] [place] [address] Dr. Grace Abdul Globulin (S) [Mass/Vol] 2.7 g/dL Normal [facility] Comment on above: Performed By: #### C MP, TSH, HSTROPN, BNP #### [facility] [address] [place] [address] Dr. Grace Abdul Glucose [Mass/Vol] 116 mg/dL Critically high 74-106 [facility] Comment on above: Performed By: #### C MP, TSH, HSTROPN, BNP #### [facility] [address] [place] [address] Dr. Grace Abdul Potassium [Moles/Vol] 3.6 mmol/L Normal 3.5-5.1 [facility] Comment on above: Performed By: #### C MP, TSH, HSTROPN, BNP #### [facility] [address] [place] [address] Dr. Grace Abdul Protein [Mass/Vol] 6.0 g/dL Critically low 6.4-8.2 [facility] Comment on above: Performed By: #### C MP, TSH, HSTROPN, BNP #### [facility] [address] [place] [address] Dr. Grace Abdul Sodium [Moles/Vol] 135 mmol/L Critically low 136-145 [facility] Comment on above: Performed By: #### C MP, TSH, HSTROPN, BNP #### [facility] [address] [place] [address] Dr. Grace Abdul Urea nitrogen [Mass/Vol] 25.0 mg/dL Critically high 7.0-18.0 [facility] Comment on above: Performed By: #### C MP, TSH, HSTROPN, BNP #### [facility] [address] [place] [address] Dr. Grace Abdul Urea nitrogen/Creatinine [Mass ratio] 19.7 mg/mg Normal [facility] Comment on above: Performed By: #### C MP, TSH, HSTROPN, BNP #### [facility] [address] [place] [address] Dr. Grace Abdul PROTIMEon 11-11-2021 INR Coag (PPP) [Relative time] 0.95 {INR} Normal [facility] Comment on above: Performed By: #### B MP #### [facility] [address] [place] [address] Dr. Grace Abdul INR GUIDELINES SEE BELOW Normal [facility] Comment on above: Result Comment: DURAN RED INR: 2.0 - 3.0 CONDITIONS NOT LISTED BELOW 2.5 - 3.5 FOR PROSTHETIC HEART VALVE REPLACEMENT 2.5 - 3.5 RECURRENT THROMBOSIS Performed By: #### B MP #### [facility] [address] [place] [address] Dr. Grace Abdul PT Coag (PPP) [Time] 10.3 s Normal 9.0-11.6 [facility] Comment on above: Performed By: #### B MP #### [facility] [address] [place] [address] Dr. Grace Abdul PTTon 11-11-2021 aPTT Coag (Bld) [Time] 21.3 s Critically low 22.3-36.2 [facility] Comment on above: Performed By: #### B MP #### [facility] [address] [place] [address] Dr. Grace Abdul TROPONIN, HIGH SENSITIVITYon 11-11-2021 HSTROP 6.5 pg/mL Normal 4.0-51.3 [facility] Comment on above: Result Comment: CUT- OFF POINTS HAVE BEEN ESTABLISHED BASED ON THE FOURTH UNIVERSAL DEFINITIONS OF MYOCARDIAL INFARCTION. THE UPPER REFERENCE LIMIT (URL) OF TROPONIN, DEFINED THE 99TH PERCENTILE OF cTnI DISTRIBUTION IN A REFERENCE POPULATION, HAS BEEN CONFIRMED THE DECISION THRESHOLD FOR ID DIAGNOSIS. Performed By: #### C MP, TSH, HSTROPN, BNP #### [facility] [address] [place], [place] [address] Dr. Grace Abdul TSHon 11-11-2021 TSH 2.140 uIU/mL Normal 0.358-3.740 [facility] Comment on above: Performed By: #### C MP, TSH, HSTROPN, BNP ####[facility] [id number] [place], [place] [id number]. Grace Abdul XR CHEST 1 Von 11-11-2021 [...] KRANTHI CONNORS Date: 2021-11-11 13:34 Normal [facility] CARDIAC JOVTIA ADMITon 022 CK [Catalytic activity/Vol] 89 U/L Normal 26-192 [facility] Comment on above: Performed By: #### C VDTBH #### [facility] [address] [place] [address] [address] Grace Abdul CK.MB [Mass/Vol] 1.92 ng/mL Normal <=3.60 [facility] Comment on above: Performed By: #### C VDTB #### [facility] [address] [address] [address] Grace Abdul HSTROP 5.7 pg/mL Normal 4.0-51.3 [facility] Comment on above: Result Comment: CUT- OFF POINTS HAVE BEEN ESTABLISHED BASED ON THE FOURTH UNIVERSAL DEFINITIONS OF MYOCARDIAL INFARCTION. THE UPPER REFERENCE LIMIT (URL) OF TROPONIN, DEFINED THE 99TH PERCENTILE OF cTnI DISTRIBUTION IN A REFERENCE POPULATION, HAS BEEN CONFIRMED THE DECISION THRESHOLD FOR ID DIAGNOSIS. Performed By: #### C VDTBH #### [facility] [address] [address] [address] Grace Abdul JOHNNA 86 ng/mL Critically high 9-82 [facility] Comment on above: Performed By: #### C VDTBH #### [facility] [address] [place] [address] Dr. Grace Abdul CBC AUTO DIFFon 09-13-2021 BASO # 0.0 103/ul Normal 0.0-0.1 [facility] Comment on above: Performed By: #### C VDTBH #### [facility] [address] [place] [address] Dr. Grace Abdul Basophils/100 WBC (Bld) 0.5 % Normal 0.2-2.0 [facility] Comment on above: Performed By: #### C VDTBH #### [facility] [address] [place] [address] Dr. Grace Abdul EO # 0.0 103/ul Normal 0.0-0.7 [facility] Comment on above: Performed By: #### C VDTBH #### [facility] [address] [place] [address] Dr. Grace Abdul Eosinophils/100 WBC (Bld) 0.7 % Critically low 0.9-7.0 [facility] Comment on above: Performed By: #### C VDTBH #### [facility] [address] [place] [address] Dr. Grace Abdul Erythrocyte distribution width (RBC) [Ratio] 13.2 % Normal 11.0-15.0 [facility] Comment on above: Performed By: #### C VDTBH #### [facility] [address] [place] [address] Dr. Grace Abdul Hematocrit (Bld) [Volume fraction] 34.8 % Critically low 36.0-48.0 [facility] Comment on above: Performed By: #### C VDTBH #### [facility] [address] [place] [address] Dr. Grace Abdul Hemoglobin (Bld) [Mass/Vol] 11.9 g/dL Critically low 12.0-16.0 [facility] Comment on above: Performed By: #### C VDTBH #### [facility] [address] [address] [address] Grace Abdul IG # 0.01 10e3/ul Normal 0.00-0.03 [facility] Comment on above: Performed By: #### C VDTBH #### [facility] [address] [place] [address] Dr. Grace Abdul IG % 0.2 % Normal 0.0-0.5 [facility] Comment on above: Performed By: #### C VDTBH #### [facility] [address] [place] [address] Dr. Grace Abdul LYMPH # 0.6 103/ul Critically low 1.2-3.8 [facility] Comment on above: Performed By: #### C VDTBH #### [facility] [address] [place] [address] Dr. Grace Abdul Lymphocytes/100 WBC (Bld) 14.2 % Critically low 20.5-60.0 [facility] Comment on above: Performed By: #### C VDTBH #### [facility] [address] [place] [address] Dr. Grace Abdul MANUAL DIFF REQ NO Normal [facility] Comment on above: Performed By: #### C VDTBH #### [facility] [address] [place] [address] Dr. Grace Abdul MCH (RBC) [Entitic mass] 31.5 pg Normal 26.7-34.0 [facility] Comment on above: Performed By: #### C VDTBH #### [facility] [address] [place] [address] Dr. Grace Abdul MCHC (RBC) [Mass/Vol] 34.2 g/dL Normal 29.9-35.2 [facility] Comment on above: Performed By: #### C VDTBH #### [facility] [address] [place] [address] Dr. Grace Abdul MCV (RBC) [Entitic vol] 92.1 fL Normal 81.0-99.0 [facility] Comment on above: Performed By: #### C VDTBH #### [facility] [address] [address] [address] Grace Abdul MONO # 0.7 103/ul Normal 0.3-0.8 [facility] Comment on above: Performed By: #### C VDTBH #### [facility] [address] [place] [address] Dr. Grace Abdul Monocytes/100 WBC (Bld) 15.6 % Critically high 1.7-12.0 [facility] Comment on above: Performed By: #### C VDTBH #### [facility] [address] [place] [address] Dr. Grace Abdul NEUT # 3.0 103/ul Normal 1.4-6.5 [facility] Comment on above: Performed By: #### C VDTBH #### [facility] [address] [place] [address] Dr. Grace Abdul Neutrophils/100 WBC (Bld) 68.8 % Normal 43.0-75.0 [facility] Comment on above: Performed By: #### C VDTBH #### [facility] [address] [place] [address] Dr. Grace Abdul Platelet mean volume (Bld) [Entitic vol] 9.5 fL Normal 9.5-13.5 [facility] Comment on above: Performed By: #### C VDTBH #### [facility] [address] [place] [address] Dr. Grace Abdul PLT 303 103/ul Normal 150-450 [facility] Comment on above: Performed By: #### C VDTBH #### [facility] [address] [place] [address] Dr. Grace Abdul RBC 3.78 106/ul Critically low 4.20-5.40 [facility] Comment on above: Performed By: #### C VDTBH #### [facility] [address] [place] [address] Dr. Grace Abdul WBC 4.4 103/ul Normal 4.0-11.0 [facility] Comment on above: Performed By: #### C VDTBH #### [facility] [address] [address] [address] HEAD WO CONon [...] KRANTHI CONNORS Date: 2021-09-13 13:24 Normal [facility] SARS-CoV-2 (COVID-19) RNA LUISITO+probe Ql (Unsp spec) Not detected Normal NOT DETECTED [facility] Comment on above: Result Comment: When [...] for this test is supported by the [place] of [employer] and Human Service's declaration that [...] used). Performed By: #### C VDTBH #### [facility] [address] [place] [address] Dr. Grace Abdul ER URINE PROFILEon 2 Bilirubin Ql (U) Negative Normal NEGATIVE [facility] Comment on above: Performed By: #### B MP #### [facility] [address] [place] [address] Dr. Grace Abdul Clarity (U) CLEAR Normal CLEAR [facility] Comment on above: Performed By: #### B MP #### [facility] [address] [place] [address] Dr. Grace Abdul Color (U) LT. YELLOW Normal YELLOW [facility] Comment on above: Performed By: #### B MP #### [facility] [address] [place] [address] Dr. Grace HIGGINS A micrscopic examination will be performed if indicated. Normal [facility] Comment on above: Performed By: #### B MP #### [facility] [address] [place] [address] Dr. Grace Abdul Glucose Ql (U) Negative Normal NEGATIVE [facility] Comment on above: Performed By: #### B MP #### [facility] [address] [place] [address] Dr. Grace Abdul Hemoglobin Ql (U) Negative Normal NEGATIVE [facility] Comment on above: Performed By: #### B MP #### [facility] [address] [place] [address] Dr. Grace Abdul Ketones Ql (U) TRACE Abnormal NEGATIVE [facility] Comment on above: Performed By: #### B MP #### [facility] [address] [place] [address] Dr. Grace Abdul LEUKOCYTES TRACE Abnormal NEGATIVE [facility] Comment on above: Performed By: #### B MP #### [facility] [address] [place] [address] Dr. Grace Abdul Nitrite Ql (U) Negative Normal NEGATIVE [facility] Comment on above: Performed By: #### B MP #### [facility] [address] [place] [address] Dr. Grace Abdul pH (U) 8.0 [pH] Normal 5-9 [facility] Comment on above: Performed By: #### B MP #### [facility] [address] [place] [address] Dr. Grace Abdul SPEC GRAVITY 1.015 Normal 1.005-<=1.[address] [facility] Comment on above: Performed By: #### B MP #### [facility] [address] [place] [address] Dr. Grace Abdul UA PROTEIN Negative Normal NEGATIVE/ TRACE [facility] Comment on above: Performed By: #### B MP #### [facility] [address] [place] [address] Dr. Grace Abdul UR MICRO IND INDICATED Normal [facility] Comment on above: Performed By: #### B MP #### [facility] [address] [place] [address] Dr. Grace Abdul Urobilinogen Qn (U) 0.2 {Ashley'U}/dL Normal 0.2 - 1. 0 [facility] Comment on above: Performed By: #### B MP #### [facility] [address] [place] [address] Dr. Grace Abdul PROF 14(COMP METB)on 022 Albumin [Mass/Vol] 3.8 g/dL Normal 3.4-5.0 [facility] Comment on above: Performed By: #### C VDTBH #### [facility] [address] [place] [address] Dr. Grace Abdul Albumin/Globulin [Mass ratio] 1.4 {ratio} Normal [facility] Comment on above: Performed By: #### C VDTBH #### [facility] [address] [place] [address] Dr. Grace Abdul ALP [Catalytic activity/Vol] 53 U/L Normal 46-116 [facility] Comment on above: Performed By: #### C VDTBH #### [facility] [address] [place] [address] Dr. Grace Abdul ALT [Catalytic activity/Vol] 20 U/L Normal 14-59 [facility] Comment on above: Performed By: #### C VDTBH #### [facility] [address] [address] [address] Grace Abdul Anion gap [Moles/Vol] 12.0 mmol/L Normal [facility] Comment on above: Performed By: #### C VDTBH #### [facility] [address] [address] [address] Grace Abdul AST [Catalytic activity/Vol] 18 U/L Normal 15-37 [facility] Comment on above: Performed By: #### C VDTBH #### [facility] [address] [address] [address] Grace Abdul Bilirubin [Mass/Vol] 0.4 mg/dL Normal 0.2-1.0 [facility] Comment on above: Performed By: #### C VDTBH #### [facility] [address] [address] [address] Grace Abdul Calcium [Mass/Vol] 9.5 mg/dL Normal 8.5-10.1 [facility] Comment on above: Performed By: #### C VDTBH #### [facility] [address] [address] [address] Grace Abdul Chloride [Moles/Vol] 99 mmol/L Normal 98-107 [facility] Comment on above: Performed By: #### C VDTBH #### [facility] [address] [address] [address] Grace Abdul CO2 [Moles/Vol] 28.1 mmol/L Normal 21.0-32.0 [facility] Comment on above: Performed By: #### C VDTBH #### [facility] [address] [address] [address] Grace Abdul Creatinine [Mass/Vol] 1.25 mg/dL Critically high 0.55-1.02 [facility] Comment on above: Performed By: #### C VDTBH #### [facility] [address] [address] [address] Grace Abdul EGFR-AF CITIZEN [place] 50 mL/min/1.73m2 Critically low >=60 [facility] Comment on above: Performed By: #### C VDTBH #### [facility] [address] [address] [address] Grace Abdul EGFR-NON AF CITIZEN OF [place] 41 mL/min/1.73m2 Critically low >=60 [facility] Comment on above: Performed By: #### C VDTBH #### [facility] [address] [address] [address] Grace Abdul Globulin (S) [Mass/Vol] 2.7 g/dL Normal [facility] Comment on above: Performed By: #### C VDTBH #### [facility] [address] [address] [address] Grace Abdul Glucose [Mass/Vol] 131 mg/dL Critically high 74-106 [facility] Comment on above: Performed By: #### C VDTBH #### [facility] [address] [address] [address] Grace Abdul Potassium [Moles/Vol] 4.1 mmol/L Normal 3.5-5.1 [facility] Comment on above: Performed By: #### C VDTBH #### [facility] [address] [address] [address] Grace Abdul Protein [Mass/Vol] 6.5 g/dL Normal 6.4-8.2 [facility] Comment on above: Performed By: #### C VDTBH #### [facility] [address] [address] [address] Grace Abdul Sodium [Moles/Vol] 135 mmol/L Critically low 136-145 [facility] Comment on above: Performed By: #### C VDTBH #### [facility] [address] [address] [address] Grace Abdul Urea nitrogen [Mass/Vol] 33.0 mg/dL Critically high 7.0-18.0 [facility] Comment on above: Performed By: #### C VDTBH #### [facility] [address] [address] [address] Grace Abdul Urea nitrogen/Creatinine [Mass ratio] 26.4 mg/mg Normal [facility] Comment on above: Performed By: #### C VDTBH #### [facility] [address] [place] [address] Dr. Grace Abdul URINE MICROSCOPIC ONLYon BACTERIA NONE SEEN Normal NONE SEEN [facility] Comment on above: Performed By: #### C BC #### [facility] [address] [place] [address] Dr. Grace Abdul Bacteria identified Cx Nom (U) NOT INDICATED Normal [facility] Comment on above: Performed By: #### C BC #### [facility] [address] [place] [address] Dr. Grace Abdul CAST NONE SEEN Normal NONE SEEN [facility] Comment on above: Performed By: #### C BC #### [facility] [address] [place] [address] Dr. Grace Abdul Crystals LM Nom (Urine sed) NONE SEEN Normal NONE SEEN [facility] Comment on above: Performed By: #### C BC #### [facility] [address] [place] [address] Dr. Grace Abdul Epithelial cells LM Ql (Urine sed) FEW Abnormal NONE SEEN /RARE [facility] Comment on above: Performed By: #### C BC #### [facility] [address] [place] [address] Dr. Grace Abdul MUCOUS NONE SEEN Normal NONE SEEN [facility] Comment on above: Performed By: #### C BC #### [facility] [address] [place] [address] Dr. Grace Abdul RBC 0-2 Normal 0-2 [facility] Comment on above: Performed By: #### C BC #### [facility] [address] [place] [address] Dr. Grace Abdul WBC 0-2 Abnormal NONE SEEN [facility] Comment on above: Performed By: #### C BC #### [facility] [address] [place] [address] Dr. Grace Abdul XR CHEST 1 Von [...] by: KRANTHI CONNORS Date: 2021-09-13 13:19 Normal [facility] CERV SP W/OBLS/FLEX/EXT 6 OR >on 12-12-2020 CERV SP W/OBLS/FLEX/EXT 6 OR > STUDY: CERV SP W/OBLS/FLEX/EXT 6 OR >; 12/12/2020 9:40 am INDICATION: NECK PAIN. COMPARISON: None. ACCESSION NUMBER(S): [id number] ORDERING CLINICIAN: Aiden Younger TECHNIQUE: AP, lateral, [...] findings. Dense left carotid artery calcifications. Normal [facility] Vital Signs Date Time Vital Sign Value Performing Clinician Aimee pollock 12-06-2023 11:32-0400 Body height 147.3 cm Armando Morales DO Work Phone: [facility] Satarii 12-06-2023 11:32-0400 Body mass index (BMI) [Ratio] 34.28 kg/m2 Armando Morales DO Work Phone: [facility] 12-06-2023 11:32-0400 Body weight 74.39 kg Armando Morales DO Work Phone: [facility] 12-06-2023 11:32-0400 Diastolic blood pressure 82 mm[Hg] Armando Morales DO Work Phone: [facility] 12-06-2023 11:32-0400 Systolic blood pressure 142 mm[Hg] Armando Morales DO Work Phone: [facility] 09-21-2022 12:51-0400 Diastolic blood pressure 60 mm[Hg] Carolyn Vanegas MD Work Phone: [facility] 09-21-2022 12:51-0400 Heart rate 67 /min Carolyn Vanegas MD Work Phone: [facility] 09-21-2022 12:51-0400 Systolic blood pressure 153 mm[Hg] Carolyn Vanegas MD Work Phone: [facility] 05-14-2022 14:24-0400 Diastolic blood pressure 87 mm[Hg] Marty Dozier DO Work Phone: [facility] 05-14-2022 14:24-0400 Heart rate 72 /min Marty Dozier DO Work Phone: [facility] 05-14-2022 14:24-0400 Systolic blood pressure 158 mm[Hg] Marty Dozier DO Work Phone: [facility] 05-14-2022 14:22-0400 Body height 152.4 cm Marty Dozier DO Work Phone: [facility] 05-14-2022 14:22-0400 Body weight 76.39 kg Marty Dozier DO Work Phone: [facility] 05-14-2022 14:22-0400 SaO2% (BldA) [Mass fraction] 99 % Marty Galavizis DO Work Phone: [facility] Encounters Encounter Date Encounter Type Care Provider Facility Start: 06-18-2024 End: 06-18-2024 ambulatory Lyn Quiñones MD [facility]: [facility] Start: 05-28-2024 End: 05-28-2024 ambulatory Lyn Quiñones MD Facility: [facility] Start: 04-30-2024 End: 04-30-2024 ambulatory Lyn Quiñones MD Facility: [facility] Start: 02-06-2024 End: 02-06-2024 ambulatory Lyn Quiñones MD Facility: [facility] Start: 01-16-2024 End: 01-16-2024 ambulatory Lyn Quiñones MD Facility:[facility] Start: 12-06-2023 End: 12-06-2023 Patient encounter procedure Armando Morales DO Work Phone: [facility] [place] Comment on above: Encounter for gyneco logical examination without abnormal finding; Encounter for Papanicolaou smear of vagina; Breast cancer screening by mammogram Start: 12-06-2023 End: 12-06-2023 Patient encounter status Armando Morales DO Work Phone: [facility] Start: 12-06-2023 End: 12-06-2023 ambulatory ARMANDO MORALES Not Available Start: 09-26-2023 End: 09-26-2023 ambulatory Lyn Quiñones MD Facility[facility] Start: 09-12-2023 End: 09-12-2023 ambulatory Lyn Quiñones MD Facility: [facility] Start: 08-18-2023 End: 08-18-2023 ambulatory Galina Rogers Facility:[facility] Start: 08-08-2023 End: 08-08-2023 ambulatory COLETTE MATOS Not Available Start: 09-21-2022 End: 09-21-2022 ambulatory GALINA ROGERS Facility:[facility] Start: 09-21-2022 End: 09-21-2022 Patient [...] Start: 05-14-2022 End: 05-14-2022 ambulatory MARTY DOZIER Facility:[facility] Start: 05-14-2022 End: 05-14-2022 Patient [...] Start: 04-06-2022 End: 04-07-[address] NIKO BCEKWITH . Facility:[facility] Start: 04-05-2022 End: 04-06-2022 ambulatory [...] 09-12-2017 End: 09-13-2017 Patient encounter DEFAULT PHYSICIAN Facility:[facility] Plan of Treatment Date Care Activity Detail Author Start: 12-10-2025 End: 12-10-2025 Patient encounter procedure 12/10/2025 11:30 AM EDT Office Visit [facility] [address] [address] [place] [id number] Armando Morales, DO [address] [facility] [address] [place] [address] [facility] Start: 10-23-2023 Influenza vaccination Influenza Vacc ine (#1) [facility] Start: 10-22-2022 Influenza vaccination INFLUENZA (#1) [facility] Start: 04-11-2022 COVID-19 VACCINE (6 - Moderna series) COVID-19 VACCINE (6 - Moderna series) [facility] Start: 02-21-2022 ADVANCE DIRECTIVE DISCUSSION ADVANCE DIRECTIVE DISCUSSION [facility] Start: 02-21-2022 DEPRESSION ASSESSMENT DEPRESSION ASS ESSMENT [facility] Start: 11-12-2017 Pneumococcal Vaccine : 65+ Years (2 of 2 - PPSV23 or PCV20) Pneumococcal Vaccine: 65+ Years (2 of 2 - PPSV23 or PCV20) [facility] Start: 11-12-2017 PNEUMOCOCCAL: 65+ (2 - PPSV23 if available, else PCV20) PNEUMOCOCCAL: 65+ (2 - PPSV23 if available, else PCV20) [facility] Start: 11-12-2017 PNEUMOCOCCAL: 65+ (2 - PPSV23 or PCV20) PNEUMOCOCCAL: 65+ (2 - PPSV23 or PCV20) [facility] Start: 07-22-2017 SHINGRIX VACCINE (2 of 3) SHINGRIX VACCINE (2 of 3) [facility] Start: 04-30-2004 BONE DENSITY BONE DENSITY [facility] Start: 04-30-1984 DIABETES SCREEN DIABETES SCREEN [facility] Start: 04-30-1958 Urine microalbumin profile DTAP,TDAP,TD (1 - Tdap) [facility] IGP,rfxAptima HPV all,16/18,45 IGP,rfxAptima HPV all,16/18,45 Pathology and Cytology Routine Encounter for Papanicolaou smear of vagina Ordered: 12/06/2023 [facility] Work Phone: Comment on above: Ordered: 12/06/2023 Immunizations Immunization Date Immunization Notes Care Provider Armando schwartz 12-09-2021 Moderna Bivalent Gama ster Vaccination Armando Morales DO Work Phone: [facility] 12-02-2021 Influenza, injectabl e, Madin Carmina Canine Kidney, preservative free, quadrivalent Marty Dozier DO Work Phone: [facility] 12-02-2021 influenza virus vacc ine, unspecified formulation Armando Morales DO Work Phone: [facility] 11-28-2020 influenza virus vacc ine, unspecified formulation Marty Dozier DO Work Phone: [facility] 11-29-2019 Seasonal trivalent influenza vaccine, adjuvanted, preservative free Marty Dozier DO Work Phone: [facility] 05-27-2017 zoster vaccine, live Marty Dozier DO Work Phone: [facility] 11-12-2016 pneumococcal conjuga te vaccine, 13 valent Marty Dozier DO Work Phone: [facility] Payers Date Payer Category Payer Private Health Insurance [id number] 2004 Medicare [id number] 2004 Unknown 1959 Medicare [id number] 1959 Self-pay 1959 Unknown [id number] 1939 Unknown [id number] 2.16.84 0.1.867319.3.579.2.593 1939 Unknown [id number] 2.16.84 0.1.464464.3.579.2.593 1939 Unknown [id number] 2.16.84 0.1.435913.3.579.2.593 1939 Unknown [id number] 2.16.84 0.1.002537.3.579.2.593 1939 Unknown [id number] 2.16.84 0.1.459506.3.579.2.593 1939 Unknown [id number] 2.16.84 0.1.401274.3.579.2.593 1939 Unknown [id number] 2.16.84 0.1.498215.3.579.2.593 1939 Unknown [id number] 2.16.84 0.1.989179.3.579.2.593 1939 Unknown [id number] 2.16.84 0.1.587347.3.579.2.593 1939 Unknown [id number] 2.16.84 0.1.514619.3.579.2.593 1939 Unknown [id number] 2.16.84 0.1.212171.3.579.2.593 1939 Unknown [id number] 2.16.84 0.1.253876.3.579.2.593 1939 Unknown [id number] 2.16.84 0.1.779181.3.579.2.593 1939 Unknown [id number] 2.16.84 0.1.311074.3.579.2.593 1939 Unknown [id number] 2.16.84 0.1.272963.3.579.2.593 1939 Unknown [id number] 2.16.84 0.1.453935.3.579.2.593 1939 Unknown [id number] 2.16.84 0.1.484427.3.579.2.593 1939 Unknown [id number] 2.16.84 0.1.424050.3.579.2.593 1939 Unknown [id number] 2.16.84 0.1.117234.3.579.2.593 1939 Unknown [id number] 2.16.84 0.1.592180.3.579.2.593 1939 Unknown [id number] 2.16.84 0.1.568531.3.579.2.593 1939 Unknown [id number] 2.16.84 0.1.182324.3.579.2.593 1939 Unknown [id number] 2.16.84 0.1.544342.3.579.2.593 1939 Unknown [id number] 2.16.84 0.1.743271.3.579.2.593 1939 Unknown [id number] 2.16.84 0.1.104606.3.579.2.593 1939 Unknown [id number] 2.16.84 0.1.501828.3.579.2.1259 1939 Unknown [id number] 2.16.84 0.1.380105.3.579.2.1259 1939 Unknown [id number] 2.16.84 0.1.633387.3.579.2.1259 1939 Unknown [id number] 2.16. 840.1.843132.3.579.2.196 1939 Unknown [id number] 2.16. 840.1.659605.3.579.2.196 1939 Unknown [id number] 2.16. 840.1.855559.3.579.2.196 1939 Unknown [id number] 2.16. 840.1.597619.3.579.2.196 1939 Unknown [id number] 2.16. 840.1.035962.3.579.2.196 1939 Unknown [id number] 2.16. 840.1.059130.3.579.2.196 1939 Unknown [id number] 2.16. 840.1.431788.3.579.2.196 Social History Date Type Detail Facility Start: 05-14-2022 End: 08-02-2022 Tobacco smoking status NHIS Never smoked tobacco [facility] Start: 05-14-2022 End: 08-02-2022 Tobacco use and exposure Smokeless tobacco non-user [facility] Start: 05-14-2022 End: 12-06-2023 Alcohol intake Lifetime non-drinker (finding) [facility] Start: 1940 Sex Assigned At Not on file [facility] Start: 09-21-2022 End: 12-06-2023 History of Social function [facility] Start: 09-21-2022 End: 12-06-2023 Tobacco use panel [facility] Adult Depression Scr eening Assessment 2 [facility] How often to you hav [...] Obstetrics and Gynecology Alexa Delgado 1940 12/06/23 [id number] Yearly Wellness Exam Chief Complaint Patient presents with Gynecologic Exam Medicare yearly. LMP: SUNIL BSO 1972 HRT: None Last pap 12-02-21 neg. Last mammogram 12-05-23 [facility] ordered by PCP. Denies breast or [...] Oil) 1000 MG capsule as directed Orally Gyinalxinxf-Nvtlmmxqfxn-LHC (Triple Flex) 500-400-125 MG tablet 1 tablet with meals Orally twice daily for 30 days HYDROcodone-acetaminophen ([place]) 5-325 MG tablet 1 tablet as needed [...] Ovary BLADDER SUSPENSION 1983 BREAST BIOPSY Left 1964 BREAST LUMPECTOMY Right 1990 BUNIONECTOMY Right 02/2005 CATARACT EXTRACTION 2012 w/ Lens Implantation CHOLECYSTECTOMY 09/15/2012 COLONOSCOPY 2019 Benign D&C FIRST TRIMESTER / TX INCOMPLETE / MISSED / SEPTIC / INDUCED x3 EXCISION BENIGN SKIN LESION TRUNK / ARM / LEG 2009 excision of lesion on leg ( benign) HI CAPSULOTOMY POSTERIOR CAPSULAR RELEASE KNEE 05/15/2013 Yttrium aluminum garnet (YAG) capsulotomies HI KNEE SCOPE,CLEAN/DRAIN 10/1998 Dr. De Leon HI LAMNOTMY INCL W/DCMPRSN NRV ROOT 1 INTRSPC CERVC 12/20/2006 L4-5 Hemilaminectomy / Discectomy - Dr. Arshad SALPINGOOPHORECTOMY Left 1981 SKIN SURGERY 12/13/2008 excision neoplasm LT leg TONSILLECTOMY 1957 TOTAL ABDOMINAL HYSTERECTOMY 1973 SUNIL RSO TOTAL KNEE ARTHROPLASTY Right 09/22/2017 Dr. de leon Past Medical History: Diagnosis Date Angina pectoris (CMS/HCC) Angina pectoris ([facility]) 11/2019 hx of hospitalization Melchor's palsy 1 Breast nodule Cataract 2012 COVID-19 10/2021 hx of hospitalization History of medical problems 1982 MMK LSO HTN (hypertension) ([facility]) Hx of completed stroke hx of stroke at [id number]/ TIA 1985 Kidney disease remission Kidney disease hx of hospitalization Lumbar disc herniation 2007 L4 L5 Miscarriage x3 Pelvic fracture ([facility]) 2018 hx of hospitalization x4 Status post laser cataract surgery of left eye 2014 Stroke ([facility]) 1973 at childbirth TIA (transient ischemic attack) [...] costovertebral angle tenderness, no obvious scoliosis/kyphosis. 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 Signature Vasu Morales,D.O. Date 12/06/23 Time 5:00PM. documented in this encounter [facility] 09-21-2022 Note HNO ID: [id number] Author: Carolyn Vanegas MD Service: ? Author [...] Health Percentile 1 (more content not included)... [facility] 09-21-2022 Instructions Carolyn Vanegas MD - [...] at this time. documented in this encounter [facility] 09-21-2022 History of Present illness [...] 4 - Moderate documented in this encounter [facility] 08-26-2022 Note HNO ID: [id number] Author: Kassandra Alves PA-C Service: ? Author Type: Physician Associate Professor Of Theology Type: Progress Notes Filed: 08/26/2022 11:52 AM Note Text: Per Triage: Alexa Delgado is a 82 year old female that requests evaluation of spine. Per review, they have symptoms of lower back pain. Numbness/tingling right leg. Difficulty walking. Weakness Request: 1st available Referring provider: Galina Rogers MD Patient out of state: no 2nd opinion: no Prior spine surgery: yes 2006 [facility] Address: [address] [place] [address] CMT: PT Injections Tylenol Hydrocodone Studies (Reports [...] reviewed during the appt Kassandra Alves PA-C [facility] 08-26-2022 History of Present illness Narrative Per Triage: Alexa Delgado is a 82 year old female that requests evaluation of spine. Per review, they have symptoms of lower back pain. Numbness/tingling right leg. Difficulty walking. Weakness Request: 1st available Referring provider: Galina Rogers MD Patient out of state: no 2nd opinion: no Prior spine surgery: yes 2006 [facility] Address: [address] [id number] CMT: PT Injections Tylenol Hydrocodone Studies (Reports [...] Health Provider or Pain Management Provider at [facility]? No If answer is YES please [...] facility where the MRI/CT/myelogram was completed: [facility] Address: [address] [place] [address] MRI/CT/myelogram viewable in Epic: No If not, please provide [phone] to fax in imaging reports for review. [...] physical therapy was completed PT Injection [facility] Address: [address] [place] [address] Have you tried any other kinds of [...] of where the surgery was completed: 2006 [facility] Address: [address] [place] [address] Additional Comments documented in this encounter [facility] 08-19-2022 Note HNO ID: [id number] Author: Micheal Bowman Service: ? Author Type: ? Type: Progress Notes Filed: 08/26/2022 11:52 AM Note Text: Patient name: Alexa Delgado Are you being referred by a [place] for Spine Health Provider or Pain Management Provider at [facility]? No If answer is YES please [...] facility where the MRI/CT/myelogram was completed: [facility] Address: [address] [place] [address] MRI/CT/myelogram viewable in Epic: No If not, please provide [phone] to fax in imaging reports for review. [...] physical therapy was completed PT Injection [facility] Address: [address] [id number] Have you tried any other kinds of [...] where the surgery was completed: 2006 [facility] Address: [address] [place] [address] Additional Comments [facility] 07-16-2022 Note PROCEDURE: XR HIP RT [...] authenticated by: HERMES MENDOZA Date: 2022-07-16 11:28 [facility] 05-14-2022 Note HNO ID: [id number] Author: Marty Dozeir, DO Service: ? Author Type: Physician Type: Progress Notes Filed: 05/15/2022 10:02 PM Note Text: [facility] [place] [facility] Medical [...] Ratio: R>L low back Current Treatment: Medications [place] 5-325 mg BID - helps Diclofenac 75 [...] but still has pain -01/28/22 Noemi Sequeira RACING SECRETARY AND HANDICAPPER: BL Lumbar erector spinae TPI (0.125% Marcaine, [...] ongoing as of 04/17/21 -03/08/21 Noemi Sequeira RACING SECRETARY AND HANDICAPPER: Left rhomboid TPI (0.125% Marcaine, 40 mg Kenalog) -02/03/21 LESI - moderate relief for 4 days Prior spine surgery: -2006 L4-5 Discectomy Previously treated by: -[facility], previously Dr. Niko [...] today. She has an evaluation at the [facility] tomorrow at the Spine Center. RECOMMENDATIONS: We will see the patient back in the office after she undergoes evaluation there to discuss her treatment plan thereafter. We will see the patient back in the office in approximately four weeks' time or sooner if needed. PMH: Lumbar scoliosis Depression on Negrita (more content not included)... [facility] 05-14-2022 History of Present illness Narrative Images from the original note were not included. [facility] [place] [facility] - Medical [...] Ratio: R>L low back Current Treatment: Medications [place] 5-325 mg BID - helps Diclofenac 75 [...] but still has pain -01/28/22 Noemi Sequeira RACING SECRETARY AND HANDICAPPER: BL Lumbar erector spinae TPI (0.125% Marcaine, [...] ongoing as of 04/17/21 -03/08/21 Noemi Sequeira RACING SECRETARY AND HANDICAPPER: Left rhomboid TPI (0.125% Marcaine, 40 mg Kenalog) -02/03/21 LESI - moderate relief for 4 days Prior spine surgery: -2006 L4-5 Discectomy Previously treated by: -[facility], previously Dr. Niko [...] today. She has an evaluation at the [facility] tomorrow at the Spine Center. [...] 04/04/22 CT abd/pelvis with IV contrast, [facility], report: Abdominal wall: Old healed left pelvis fractures. Degenerative changes and scoliosis of the lumbar spine. IMPRESSION: No acute abdominal pathology. No acute inflammatory process. No obstructing urinary tract stone. No evidence for bowel obstruction. 11/15/21 XR abd, [facility], report: No acute osseous abnormality. There is moderate dextrocurvature of the lumbar spine. 05/08/2021 XR right hip/pelvis, [facility], report: Rotatory dextro scoliosis of the [...] TIME: 3:15 PM documented in this encounter [facility] 05-13-2022 Note CONSULTATION CONSULTATION DATE: [...] mg at h.s., diclofenac 75 mg b.i.d., Chambersburg 5 mg b.i.d. EXAM: Notable for the [...] today. She has an evaluation at the [facility]. RECOMMENDATIONS: We will see the patient back in the office after she undergoes evaluation there to discuss her treatment plan thereafter. We will see the patient back in the office in approximately four weeks' time or sooner if needed. [facility] 04-06-2022 Note CONSULTATION CONSULTATION DATE: 04/06/2022 [...] to kidney dysfunction also. The patient takes Chambersburg, however, is very controlled and limits it to the point of detriment. Education was done. The patient was instructed to take the Chambersburg to a b.i.d. to t.i.d. basis. The [...] b.i.d. basis. The patient may increase the Chambersburg to 5/325 t.i.d. We will schedule the [...] the procedure. CC: Galina Rogers M.D. [facility] 03-11-2022 Note CONSULTATION CONSULTATION DATE: 03/11/2022 [...] gave improvement for 24 hours. Medications include Chambersburg 5/325 b.i.d., diclofenac 75 mg b.i.d., citalopram [...] back pain. PLAN: We will refill her Chambersburg 5/325 b.i.d. We will prescribe her Buderer cream with gabapentin, ketorolac and prilocaine/lidocaine to be placed over her right knee. We will trial Requip 0.25 mg q.h.s. We will see the patient in the clinic in three months' time unless otherwise indicated. Patient agrees with the plan. [facility] 01-28-2022 Note CONSULTATION CONSULTATION DATE: 01/28/2022 [...] daily which decreases her pain. Medications include [place] 5/325 b.i.d., Flexeril 5 mg b.i.d., diclofenac [...] does consent to. We will refill the Chambers[place] 5/325 b.i.d. We will pre-authorize for a right genicular nerve block under fluoroscopy. Patient will follow up in the clinic thereafter. [facility] 01-28-2022 Note CONSULTATION PROCEDURE DATE: 01/28/2022 [...] be followed up in the office. [facility] 12-31-2021 Note CONSULTATION CONSULTATION DATE: 12/31/2021 [...] Current medications include diclofenac 75 mg b.i.d., Chambersburg 5/325 b.i.d., citalopram, Flexeril and multivitamin regimen. The patient does state that she breaks her Chambersburg in half and the most she takes [...] and would like to move forward. [facility] 09-30-2021 Note CONSULTATION CONSULTATION DATE: 09/30/2021 This is a very -wmgs-npp female accompanied by her returning to the [...] Current medications include diclofenac 50 mg b.i.d., [place]burg 5/325 b. i.d. and Tylenol. She does [...] at 25 mg q.h.s. Refill for her [place] 5/325 b.i.d. will be sent as well. The patient is to continue with her vitamin regimen which she is currently compliant with, as well as heat application and pool exercises. The patient will be followed up in the office in three months' time unless otherwise indicated. The patient agrees with the plan of care. [facility] Evaluation note Diagnosis Chronic bilateral low back pain with right-sided sciatica- Primary Back pain, lumbosacral Lumbago Chronic sacroiliac joint pain Disorders of sacrum Lumbar spondylosis Lumbosacral spondylosis without myelopathy Scoliosis of lumbar spine, unspecified scoliosis type [facility] Diagnosis Spinal stenosis, lumbar region with neurogenic claudication- Primary Spondylolisthesis, lumbar region Other idiopathic scoliosis, lumbar region [facility] [place] [facility] Diagnosis Obesity, Class I, BMI 30-34.9- Primary Obesity, unspecified Spinal stenosis, lumbar region with neurogenic claudication [facility] Diagnosis Encounter for gynecological [...] By Contac t Referred To Contact [facility] [place] Diagnoses Spinal stenosis, lumbar region with neurogenic claudication Procedures CONSULT TO [facility]) OFFICE/OUTPATIENT NEW HIGH MDM 60-74 MINUTES Carolyn Vanegas MD [address] [place] [address] Referral ID Status Reason Start Date Expiration Date Visits Requested Visits Authorized [id number] Pending Review PCP Requested Referral 09/21/2022 09/21/2023 1 1 Additional Source Comments INFORMATION SOURCE (unrecogn ized section and content) DATE CREATED AUTHOR 09/13/2017 [facility] DATE CREATED AUTHOR AUTHOR'S ORGANIZ ATION 12/13/2020 [facility] DATE CREATED AUTHOR AUTHOR'S ORGANIZ ATION 07/30/2022 [facility] DATE CREATED AUTHOR AUTHOR'S ORGANIZ ATION 09/22/[address] [facility] DATE CREATED AUTHOR AUTHOR'S ORGANIZ ATION 10/26/2023 [facility] DATE CREATED AUTHOR AUTHOR'S ORGANIZ ATION 12/08/2023 [facility] EPIC DATE CREATED AUTHOR AUTHOR'S ORGANIZ ATION 06/25/[address] [facility] Source Comments (unrecognize d section and content) In the event this informatio n is protected by the Federal Confidentiality of Alcohol and Drug Abuse Patient Records regulations: The Federal rules restrict any use of the information to criminally investigate or prosecute any alcohol or drug abuse patient.[facility] the event this information is protected by the Federal Confidentiality of Alcohol and Drug Abuse Patient Records regulations: The Federal rules restrict any use of the information to criminally investigate or prosecute any alcohol or drug abuse patient.[facility] the event this information is protected by the Federal Confidentiality of Alcohol and Drug Abuse Patient Records regulations: The Federal rules restrict any use of the information to criminally investigate or prosecute any alcohol or drug abuse patient.[facility] Reason for Visit (unrecogniz ed section and content) Reason Comments New Patient Evaluation Low Back Pain Reason Comments New Patient Reason Comments Gynecologic Exam Medicare yearly.LMP: SUNIL BSO 1973HRT: NoneLast pap 12-02-21 neg.Last mammogram 12-05-23 [facility] ordered by PCP.Denies breast or urinary concerns. bowel concern Some rectal bleeding with bowel movements. Denies difficulty having a bowel movement. Care Teams (unrecognized sec tion and content) Diver'S Tender Relationship Specialty Start Date End Date Galina Rogers MD [address] [place] [address] PCP - General Family Medicine 05/14/22 Coletet De Leon Jr., DO [address] [facility] [address] [place] [address] Referring Orthopedics 05/03/22 Porsha Garcia [address] [address] Pain Management 05/14/22 Haley Colette Shante Matos, DO [address] [place] [address] Orthopedics 05/14/22 Diver'S Tender Relationship Specialty Start Date End Date Galina Rogers MD [address] [facility] [place] [address] PCP - General Family Medicine 05/14/22 Colette De Leon Jr., DO [address] [place] [address] Referring Orthopedics 05/03/22 Porsha Garcia [address] [place] [address] [place] [address], [place] [phone] Pain Management 05/14/22 Colette De Leon Jr., DO [address] [place] [address] Orthopedics 05/14/22 Galina Rogers MD [address] [place] [facility] [place] [address] Referring Family Medicine 08/11/22 Diver'S Tender Relationship Specialty Start Date End Date Galina Rogers MD [address] [place] [facility] [place] [address] PCP - General Family Medicine 05/14/22 Colette De Leon Jr., DO [address] [place] [address] Referring Orthopedics 05/03/22 Shermijacque, Claudioendranath [address] [place] [address] [place] [address], [place] [address] Pain Management 05/14/22 Colette De Leon Jr., [address] [place] [address] Orthopedics 05/14/22 Galina Rogers MD [address] [place] [phone] Referring Family Medicine 08/11/22 Diver'S Tender Relationship Specialty Start Date End Date Galina Rogers MD [address] [place] [phone] PCP - General Family Medicine 08/02/22 FOR [...] BE BASED ON THE PRIMARY CLINICAL RECORDS. [facility] Delivery Agent [facility]. provides no warranty or guarantee of the accuracy or completeness of information in this document.
== END 2024-08-01 15:07 | disposition home or self-care (01) ==
LOC: PM 15:07
PROVIDERS: PCP Family Medicine; Visit Provider Nurse Practitioner
DX: M79.641 Pain in right hand (principal); M18.11 Unilateral primary osteoarthritis of first carpometacarpal joint, right hand; M79.645 Pain in left finger(s); M79.644 Pain in right finger(s); M48.062 Spinal stenosis, lumbar region with neurogenic claudication; M47.816 Spondylosis without myelopathy or radiculopathy, lumbar region; M79.18 Myalgia, other site
CPT/HCPCS: 73130; G0463

== ENCOUNTER 2024-08-01 15:52 | Outpatient (OUT) | payer MEDICARE, SELFPAY ==
--- NOTE | 2024-08-01 | XR_ITS ---
The [address] [address] Patient Name: KARINA CORMIER MRN: [id number] date: 1940 Sex: F Assigned Patient Location: [facility] Current Patient Location: [facility] Accession/Order Number: [id number] Exam Date: 08/01/2024 20:16 Report Date: 08/01/2024 20:18 At the request of: EPIFANIO EVERETT NP Procedure: XR hand RT min 3V 3 views right hand plain film COMPARISON: None HISTORY: Chronic right hand pain for years. No injury ACUTE FINDINGS: None DEGENERATIVE CHANGE: There is extensive first carpometacarpal degeneration with bony fragmentation and dislocation with subarticular sclerotic and cystic changes. Extensive first interphalangeal degeneration. Moderate interphalangeal degenerative changes. Chondrocalcinosis of the triangular cartilage. 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 Impression dictated by: Aiden Esquivel M.D. 08/01/2024 8:18 PM Dictation Location: [facility] Electronically authenticated by: [id number] Y Date: 08/01/2024 20:18
== END 2024-08-01 15:53 | disposition home or self-care (01) ==
PROVIDERS: PCP Family Medicine; Visit Provider Nurse Practitioner
DX: M79.641 Pain in right hand (principal); M18.11 Unilateral primary osteoarthritis of first carpometacarpal joint, right hand
CPT/HCPCS: 73130

== ENCOUNTER 2024-09-06 10:48 | Outpatient (OUT) | payer MEDICARE, SELFPAY ==
--- OUTSIDE RECORDS SUMMARY | 2024-09-06 10:52 | XMS_ITS | Clinical Summary ---
Author Organization [facility] Address [address] [place] [address] Care Team Providers Care Associate Professor Of Church Music Name Role Phone Luis Rogers MD Primary Care Provider [phone] Allergies Active Allergy Reactions Criticality Noted Date [...] daily for 30 days Active HYDROcodone-acet aminophen (Penitas) 5-325 MG tablet 1 tablet as needed [...] 12/10/2025 11:30 AM EDT Office Visit [facility] [address] [facility] [address] [place] [phone] Armando Thayer, DO [address] [facility] [address] [place] [address] Health Maintenance Due Date Last Done Comments Pneumococcal Vaccine: 65+ Ye ars (2 of 2 - PPSV23) 11/12/2017 11/12/2016 Influenza Vaccine (#1) 2024 2, 11/28/2020, 11/29/2019 Insurance MEDICARE [facility] Care Teams Associate Professor Of Church Music Relationship Specialty Start Date End Date Luis Rogers MD PCP - General Family Medicine 08/02/22
--- OUTSIDE RECORDS SUMMARY | 2024-09-06 10:52 | XMS_ITS | Encounter Summary ---
Author Organization [facility] Address [address] [place] [address] Care Team Providers Care Clerk Cashier Name Role Phone Haley Matos DO, George Cajetan Unavailable Luis Rogers MD Primary Care Provider [phone] Porsha Garcia Unavailable Haley Matos DO, George Cajetan Unavailable Luis Rogers MD Unavailable [phone] Source Comments In the event this information is protected by the Federal Confidentiality of Alcohol and Drug AbusePatient Records regulations: The Federal rules restrict any use of the information to criminally investigate or prosecute any alcohol or drug abuse patient.[facility] Encounter Details Date Type Department Care Team (Late st Contact Info) Description 09/23/2022 Patient Msg Neurology [address] [place] [address] Provider, [facility] Referral Social History Tobacco [...] is lower risk 4 09/21/2022 Data from: https://www.neighborhoodatlas.medicine.[facility].edu/. Last address used for calculation [address] 09/21/2022 Comments Unknown Sex and Gender Information Value Date Recorded Sex Assigned at Not on file Legal Sex Female 11:59 AM EST Gender Identity Not on file Sexual Orientation Not on file documented as of this encounter Plan of Treatment Not on file documented as of this encounter Visit Diagnoses Not on filedocumented in this encounter Care Teams Clerk Cashier Relationship Specialty Start Date End Date Luis Rogers MD [address] [place] [address] PCP - General Family Medicine 05/14/22 Arsh De Leon Jr., DO [address] [place] [address] [address] [place] [address] Referring Orthopedics 05/03/22 Porsha Garcia [address] [phone] Pain Management 05/14/22 Arsh De Leon Jr., DO [address] [facility] [address] [place] [address] Orthopedics 05/14/22 Luis Rogers MD [address] [place] [address] Referring Family Medicine 08/11/22 documented as of this encounter
--- OUTSIDE RECORDS SUMMARY | 2024-09-06 10:52 | XMS_ITS | Encounter Summary ---
Author Organization [facility] Address [address] [place] [address] Care Team Providers Care Shade Matcher Name Role Phone Luis Rogers MD Primary Care Provider [phone] Encounter Details Date Type Department Care Team (Late Contact Info) Description 01/09/2024 Orders Only [facility] [address] [facility] [address] [place] [address] Armando Thayer, DO [address] [facility] [address] [place] [address] Social History Tobacco Use Types Packs/Day Years [...] Office Visit [facility] [address] [facility] [address] [place] [address] Armando Thayer, DO [address] [place] [address] documented as of this encounter Procedures Procedure [...] on filedocumented in this encounter Care Teams Shade Matcher Relationship Specialty Start Date End Date Luis Rogers MD PCP - General Family Medicine 08/02/22 documented as of this encounter
--- OUTSIDE RECORDS SUMMARY | 2024-09-06 10:52 | XMS_ITS | Clinical Summary ---
Author Organization [facility] Address [address] [place], [place] [id number] Care Team Providers Care Muck Miner Blasting Name Role Phone Haley Matos DO, George Cajetan Unavailable Luis Rogers MD Primary Care Provider [phone] LakkailamipathArmen manciaranneto Unavailable Haley Matos DO, George Cajetan Unavailable Luis Rogers MD Unavailable [phone] Allergies Active Allergy Reactions Criticality Noted [...] is lower risk 4 09/21/2022 Data from: https://www.neighborhoodatlas.medicine.[facility]/. Last address used for calculation [address] 09/21/2022 Comments Unknown Sex and [...] exists Advance Directive Discussion 02/22/2024 Influenza Vaccine (#1) 2024 , 11/28/2020, 11/29/[address] [place] [address] [place] [address] [facility] Address: [address] [place] [address] MEDICARE RAILRO[employer] MEDICARE Care Teams Muck Miner Blasting Relationship Specialty Start Date End Date Luis Rogers MD [address] [place] [address] PCP - General Family Medicine 05/14/22 Arsh De Leon Jr., DO [address] [facility] [address] [place] [address] Referring Orthopedics 05/03/22 Porsha Garcia [address] [phone] Pain Management 05/14/22 Arsh De Leon Jr., DO [address] [facility] [address] [place] [address] Orthopedics 05/14/22 Luis Rogers MD [address] [place] [address] Referring Family Medicine 08/11/22
--- OUTSIDE RECORDS SUMMARY | 2024-09-06 10:52 | XMS_ITS | Clinical Summary ---
Author Organization [facility] Address [address] [place] [address] Phone Care Team Providers Care Caramel Cutter Hand Name Role Phone Unavailable Primary Care Provider Unavailabl e Social History Tobacco Use Types Packs/Day Years Used Date Smoking Tobacco: Never Assessed Comments Unknown Sex and Gender Information Value Date Recorded Sex Assigned at Not on file Legal Sex Female 6:29 PM EST Gender Identity Not on file Sexual Orientation Not on file Plan of Treatment Not on file
--- OUTSIDE RECORDS SUMMARY | 2024-09-06 11:06 | XMS_ITS | CCD ---
Author Organization [facility] Care Team Providers Care Clinical Athletic Instructor Name Role Phone PHYSICIAN, DEFAULT Unavailable Unavailable PHYSICIAN, DEFAULT Unavailable Unavailable Haley Matos DO, George Cajetan Unavailable Galina Rogers MD Primary Care Provider [phone] Lakshmipathy, Narendranath Unavailable Haley Matos DO, [...] ., NOEMI Consulting Unavailable BECKWITH ., DR NKIO Austin Attending [...] Unavailable HOY ., DR MOJICA Consulting Unavailable [place], DR HERMES JeanB aptiste Consulting Unavailable BECKWITH ., DR NIKO Austin [...] Translations: [CODEINE] Drug Allergy 09-14-19 13 Unknown [facility] (4 sources) Penicillins; Translations: [PENICILLINS] Drug Allergy 09-14-19 13 Unknown [facility] (4 sources) pregabalin; Translations: [PREGABALIN] Drug Allergy 05-15-19 23 Intolerance [facility] Work Phone: (5 sources) Propoxyphene; Translations: [PROPOXYPHENE] Drug Allergy 05-15-19 23 Rash, Unknown, GI intolerance, Headache [facility] (4 sources) quiNINE; Translations: [QUINAMM] Drug Allergy 05-15-19 23 GI Upset [facility] (5 sources) Decongest Multi-Action; Translations: [Decongest Multi-Action] Drug Allergy 05-15-19 23 Other: See Comments [facility] (1 source) Acetaminophen / HYDROcodone Drug Allergy [facility] (2 sources) Codeine Drug Allergy 09-14-19 13 [facility] (1 source) Fluconazole Drug Allergy [facility] (2 sources) Penicillins Drug allergy (disorder) 09-14-19 13 [facility] (1 source) pregabalin Drug Allergy [facility] (2 sources) Propoxyphene Drug Allergy [facility] (1 source) quiNINE Drug Allergy [facility] (1 source) Fluconazole Allergy to [...] mouth twice daily as needed HYDROcodone-acetamin ophen ([place]) 5-325 MG tablet 1 tablet as needed [...] Take by mouth twice a day. Active Ejlsxsf-Tdqonpf-Dfejr l Edwar (SALONPAS TD) (1 source) Camphor-Menthol- [...] above: Take by mouth twice daily. 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) use of aspirin; Translations: [LONG-TERM CURRENT USE OF ASPIRIN] Onset: 04-06-2022 Episodic Other aftercare (1 source) Other assistant terminal manager (current) drug therapy; Translations: [OTH LONG-TERM CURRENT [...] Test Name Value Interpretation Reference Range Facility [facility] 08-18-2023 L Specimen: [id number] Received: 08/22/23 Status: CECILIA Wright Num: [id number] Spec Type: Impression Subm Dr: Galina Rogers MD Tissues: PATHPER Procedures: PATHREVIEW Age/ Patient Sex Location Account Attending Physician Alexa Delgado 83/F LABELL [id number] Galina Rogers MD SPEC NUM: [id number] RECD: 08/22/23 [facility] NUM: [id number] JANET: 08/18/[address]: Galina Rogers MD ENTERED: 08/22/[address] [facility] DR: [facility] SPEC TYPE: Impression DEPT: SHELLIE Simmons ENTERED BY: [id number] RECV BY: [id number] ORDERED: PATHREVIEW ORDERED: PATHREVIEW Pathologist Review Abnormal [...] initial report for the needed correction CPT: 41026 ---- ---- Specimen: [id number] Received: 08/22/23 Status: CECILIA Wright Num: [id number] Spec Type: Impression Subm Dr: Galina Rogers MD Tissues: PATHPER Procedures: PATHREVIEW ---- Patient: Alexa Delgado [id number] (Continued) ---- Signed (signature on file) Anoop Abdul MD 08/24/23918 Normal [facility] CNOVjustina 09-21-2022 CNOV Office Visit (NSADHC ) ALEXA DELGADO ([id number]) 1940 F Date Time Provider Department 09/21/22 1:00 PM CAROLYN VANEGAS [facility] During your visit today, we [...] Percentile 2 (more content not included)... Normal [facility] XR LSPINE 2_3 VIEWSon 2022 XR LSPINE [...] by: HERMES MENDOZA Date: 2022-07-16 11:34 Normal [facility] CNOVon 05-14-2022 OV Office Visit (SPMESH ) ALEXA DELGADO ([id number]) 1940 F Date Time Provider Department 05/14/22 2:30 PM MARTY DOZIER During your visit today, we recorded the following information about you: Pulse Blood pressure Weight Height 72/minute 158/87 76.4 kg 1.524 m Marty Dozier DO 05/15/2022 10:02 PM Signed [facility] Initial [...] Ratio: R>L low back Current Treatment: Medications [place] 5-325 mg BID - helps Diclofenac 75 [...] but still has pain -01/28/22 Noemi Sequeira STUDENT UNION CONSULTANT: BL Lumbar erector spinae TPI (0.125% Marcaine, [...] ongoing as of 04/17/21 -03/08/21 Noemi Sequeira STUDENT UNION CONSULTANT: Left rhomboid TPI (0.125% Marcaine, 40 mg Kenalog) -02/03/21 LESI - moderate relief for 4 days Prior spine surgery: -2006 L4-5 Discectomy Previously treated by: -[facility], previously Dr. Niko [...] evaluation at the [facility] tomorrow at the [facility]. RECOMMENDATIONS: We will see the pat (more content not included)... Normal [facility] CULTURE URINEon 04-05-2022 CULTURE URINE Culture Observations : LIGHT GROWTH OF MIXED GENITAL LAANIS. NO POTENTIAL PATHOGENS SEEN. Normal [facility] Comment on above: Performed By: #### U RCX ####[facility] [address] [place] [address]Dr. Grace Abdul UA RANDOM W/MICROSCOPICon BACTERIA NONE SEEN Normal NONE SEEN [facility] Comment on above: Performed By: #### U AMIC ####[facility] [address] [place] [address]Dr. Grace Abdul Bilirubin Ql (U) Negative Normal NEGATIVE [facility] Comment on above: Performed By: #### U AMIC ####[facility] [address] [place], [place] [address]Dr. Grace Abdul CAST NONE SEEN Normal NONE SEEN [facility] Comment on above: Performed By: #### U AMIC ####[facility] [address]pqbv[address] [place] [address]Dr. Grace Abdul Clarity (U) CLEAR Normal CLEAR [facility] Comment on above: Performed By: #### U AMIC ####[facility] [address]doczbdh[address] [place] [address]Dr. Benitalan Abdul Color (U) YELLOW Normal YELLOW [facility] Comment on above: Performed By: #### U AMIC ####[facility] [address] [place] [address]Dr. Grace Abdul Crystals LM Nom (Urine sed) NONE SEEN Normal NONE SEEN [facility] Comment on above: Performed By: #### U AMIC ####[facility] [address]fsvojvb[address] [place] [address]Dr. Grace Abdul Epithelial cells LM Ql (Urine sed) RARE Normal NONE SEEN /RARE [facility] Comment on above: Performed By: #### U AMIC ####[facility] [address]tx[address] [place] [address]Dr. Grace Abdul Glucose Ql (U) Negative Normal NEGATIVE [facility] [place] [facility] Comment on above: Performed By: #### U AMIC ####[facility] Zdokysiazx[address] [place] [address]Dr. Grace Abdul Hemoglobin Ql (U) MODERATE Abnormal NEGATIVE [facility] Comment on above: Performed By: #### U AMIC ####[facility] Mkwjrrqdxz[address] [place] [address]Dr. Grace Abdul Ketones Ql (U) TRACE Abnormal NEGATIVE [facility] [place] [facility] Comment on above: Performed By: #### U AMIC ####[facility] Cc[address]ef[address] [place], [place] [address]Dr. Benitalee ann Abdul LEUKOCYTES TRACE Abnormal NEGATIVE [facility] Comment on above: Performed By: #### U AMIC ####[facility] Xx[address]ml[address] [place], [place] [address]Dr. Grace Abdul MUCOUS NONE SEEN Normal NONE SEEN [facility] Comment on above: Performed By: #### U AMIC ####[facility] Vidosrnrfc[address] [place], [place] [address]Dr. Grace Abdul Nitrite Ql (U) Negative Normal NEGATIVE [facility] [place] [facility] Comment on above: Performed By: #### U AMIC ####[facility] Lxukzykmae[address] [place], [place] [address]Dr. Grace Abdul pH (U) 5.0 [pH] Normal 5-9 [facility] Comment on above: Performed By: #### U AMIC ####[facility] [address]xytozcyta[address] [place] [address]Dr. Grace Abdul RBC 0-2 Normal 0-2 [facility] Comment on above: Performed By: #### U AMIC ####[facility] Orfvestder[address] [place] [address]Dr. Grace Abdul SPEC GRAVITY 1.015 Normal 1.005-<=1.025 [facility] Comment on above: Performed By: #### U AMIC ####[facility] [address]ets[address]ro[address] [place] [id number]. Grace Abdul UA PROTEIN Negative Normal NEGATIVE/ TRACE [facility] Comment on above: Performed By: #### U AMIC ####[facility] Vyattvanvk[address] [place] [phone]. Grace Abdul Urobilinogen Qn (U) 0.2 {Ashley'U}/dL Normal 0.2 - 1. 0 [facility] Comment on above: Performed By: #### U AMIC ####[facility] [address]newyj[address] [place] [address]Dr. Grace Abdul WBC 0-2 Abnormal NONE SEEN [facility] Comment on above: Performed By: #### U AMIC ####[facility] [address]qjobjaxnx[address] [place] [address]Dr. Grace Abdul CBC AUTO DIFFon 04-04-2022 BASO # 0.0 103/ul Normal 0.0-0.1 [facility] Comment on above: Performed By: #### C BC ####[facility] [address]zpsqeysee[address] [place], [place] [address]Dr. Grace Abdul Basophils/100 WBC (Bld) 0.4 % Normal 0.2-2.0 [facility] Comment on above: Performed By: #### C BC ####[facility] Avqtbhmadk[address] [place], [place] [address]Dr. Grace Abdul EO # 0.1 103/ul Normal 0.0-0.7 [facility] Comment on above: Performed By: #### C BC ####[facility] W[address]vsvwfob[address] [place], [place] [address]Dr. Grace Abdul Eosinophils/100 WBC (Bld) 1.3 % Normal 0.9-7.0 [facility] Comment on above: Performed By: #### C BC ####[facility] [address]deczb[address] [place] [address]Dr. Grace Abdul Erythrocyte distribution width (RBC) [Ratio] 13.7 % Normal 11.0-15.0 [facility] Comment on above: Performed By: #### C BC ####[facility] [address]xq[address]wyd[address] [place] [address]Dr. Benitalee ann Abdul Hematocrit (Bld) [Volume fraction] 37.2 % Normal 36.0-48.0 [facility] Comment on above: Performed By: #### C BC ####[facility] Usthxyxdae[address] [place] [address]Dr. Grace Abdul Hemoglobin (Bld) [Mass/Vol] 12.4 g/dL Normal 12.0-16.0 [facility] Comment on above: Performed By: #### C BC ####[facility] [address]okjrrnfh[address] [place] [address]Dr. Grcae Abdul IG # 0.02 10e3/ul Normal 0.00-0.03 [facility] Comment on above: Performed By: #### C BC ####[facility] [address]icv[address] [place] [address]Dr. Grace Abdul IG % 0.4 % Normal 0.0-0.5 [facility] Comment on above: Performed By: #### C BC ####[facility] [address]ys[address]op[address]zd[address] [place] [address]Dr. Grace Abdul LYMPH # 0.8 103/ul Critically low 1.2-3.8 [facility] [place] [facility] Comment on above: Performed By: #### C BC ####[facility] Wlhiacxuvy[address] [place] [address]Dr. Grace Abdul Lymphocytes/100 WBC (Bld) 13.9 % Critically low 20.5-60.0 [facility] Comment on above: Performed By: #### C BC ####[facility] Mg[address]jitmhc[address] [place] [address]Dr. Grace Abdul MANUAL DIFF REQ NO Normal [facility] Comment on above: Performed By: #### C BC ####[facility] Delqlrgbev[address] [place], [place] [address]Dr. Grace Abdul MCH (RBC) [Entitic mass] 30.5 pg Normal 26.7-34.0 [facility] Comment on above: Performed By: #### C BC ####[facility] [address]ussaad[address] [place] [phone]. Grace Abdul MCHC (RBC) [Mass/Vol] 33.3 g/dL Normal 29.9-35.2 [facility] Comment on above: Performed By: #### C BC ####[facility] Qzyxdjvqdn16[address] [place] [phone]. Graec Abdul MCV (RBC) [Entitic vol] 91.4 fL Normal 81.0-99.0 [facility] Comment on above: Performed By: #### C BC ####[facility] Blqspsgntl3[address] [place] [phone]. Grace Abdul MONO # 0.7 103/ul Normal 0.3-0.8 [facility] Comment on above: Performed By: #### C BC ####[facility] Rjcitoywbz[address] [place], [place] [address]Dr. Grace Abdul Monocytes/100 WBC (Bld) 13.5 % Critically high 1.7-12.0 [facility] Comment on above: Performed By: #### C BC ####[facility] [address] [place], [place] [address]Dr. Grace Abdul NEUT # 3.8 103/ul Normal 1.4-6.5 [facility] Comment on above: Performed By: #### C BC ####[facility] Ias[address]fe[address] [place], [place] [address]Dr. Grace Abdul Neutrophils/100 WBC (Bld) 70.5 % Normal 43.0-75.0 [facility] Comment on above: Performed By: #### C BC ####[facility] We[address] [place], [place] [address]Dr. Grace Abdul Platelet mean volume (Bld) [Entitic vol] 9.0 fL Critically low 9.5-13.5 [facility] Comment on above: Performed By: #### C BC ####[facility] [address] [place], [place] [address]Dr. Grace Abdul PLT 283 103/ul Normal 150-450 [facility] Comment on above: Performed By: #### C BC ####[facility] [address]fks[address] [place], [place] [address]EyLisette Abdul RBC 4.07 106/ul Critically low 4.20-5.40 [facility] Comment on above: Performed By: #### C BC ####[facility] Qxkujbbgzz8762 [place], [place] [address]PbLisette Abdul WBC 5.4 103/ul Normal 4.0-11.0 [facility] Comment on above: Performed By: #### C BC ####[facility] I[address]li[address] [place], [place] [address]v. Grace Abdul CT ABD/PELV W CONon 04-04-19 [...] EMILY ROSALBA Date: 2022-04-04 16:59 Normal [facility] ER URINE PROFILEon 3 Bilirubin Ql (U) Negative Normal NEGATIVE [facility] Comment on above: Performed By: #### GINA FELDERRO ####[facility] [address]twshu[address] [place] [address]Dr. Grace Abdul Clarity (U) CLEAR Normal CLEAR [facility] Comment on above: Performed By: #### Anthony ELLISON UMICRO ####[facility] Uaxbxugdus[address] [place] [address]Dr. Graec Abdul Color (U) LT. YELLOW Normal YELLOW [facility] Comment on above: Performed By: #### GINA FELDERRO ####[facility] [address]tkjpz[address]ok[address] [place], [place] [address]Dr. Grace Abdul ERUAHD A micrscopic examination will be performed if indicated. Normal [facility] Comment on above: Performed By: #### GODWIN FELDERICRO ####[facility] Jrfxteqgsr4354 [place] [address]Dr. Grace Abdul Glucose Ql (U) Negative Normal NEGATIVE [facility] [place] [facility] Comment on above: Performed By: #### Anthony ELLISON UMICRO ####[facility] Vbq[address]ytbqlo[address] [place] [address]Dr. Grace Abdul Hemoglobin Ql (U) SMALL Abnormal NEGATIVE [facility] Comment on above: Performed By: #### Anthony ELLISON UMICRO ####[facility] [address] [place], [place] [address]Dr. Grace Abdul Ketones Ql (U) Negative Normal NEGATIVE [facility] [place] [facility] Comment on above: Performed By: #### GINA FELDERRO ####[facility] [address]qtv[address]qrqa[address] [place] [address]Dr. Grace Abdul LEUKOCYTES TRACE Abnormal NEGATIVE [facility] Comment on above: Performed By: #### GINA FELDERRO ####[facility] [address] [place], [place] [address]Dr. Grace Abdul Nitrite Ql (U) Negative Normal NEGATIVE [facility] [place] [facility] Comment on above: Performed By: #### ROBERT FELDER ####[facility] [address]umm[address]cgum[address] [place] [address]Dr. Grace Abdul pH (U) 7.5 [pH] Normal 5-9 [facility] Comment on above: Performed By: #### ROBERT FELDER ####[facility] Zs[address]pqgxjr[address] [place] [address]Dr. Grace Abdul SPEC GRAVITY 1.005 Normal 1.005-<=1.025 [facility] Comment on above: Performed By: #### ROBERT FELDER ####[facility] [address]exxuxenhd[address] [place] [address]Dr. Grace Abdul UA PROTEIN Negative Normal NEGATIVE/ TRACE [facility] Comment on above: Performed By: #### ROBERT FELDER ####[facility] X[address]vtpwhgze[address] [place] [address]Dr. Grace Abdul UR MICRO IND INDICATED Normal [facility] Comment on above: Performed By: #### ROBERT FELDER ####[facility] Expudyvndy[address] [place] [address]Dr. Grace Abdul Urobilinogen Qn (U) 0.2 {Ashley'U}/dL Normal 0.2 - 1. 0 [facility] Comment on above: Performed By: #### GINA FELDERRO ####[facility] [address]vc[address] [place] [address]Dr. Grace Abdul LIPASEon 04-04-2022 Lipase [Catalytic activity/Vol] 115.0 U/L Normal 73.0-393.0 [facility] Comment on above: Performed By: #### C VDTB #### [facility] [address] [place] [address] [address] Grace Abdul PROF 14(COMP METB)on 023 Albumin [Mass/Vol] 3.6 g/dL Normal 3.4-5.0 [facility] Comment on above: Performed By: #### C VDTBH #### [facility] [address] [place] [address] [address] Grace Adbul Albumin/Globulin [Mass ratio] 1.1 {ratio} Normal [facility] Comment on above: Performed By: #### C VDTBH #### [facility] [address] [place] [address] [address] Grace Abdul ALP [Catalytic activity/Vol] 74 U/L Normal 46-116 [facility] Comment on above: Performed By: #### C VDTBH #### [facility] [address] [place] [address] [address] Grace Abdul ALT [Catalytic activity/Vol] 23 U/L Normal 14-59 [facility] Comment on above: Performed By: #### C VDTBH #### [facility] [address] [place] [address] Dr. Grace Abdul Anion gap [Moles/Vol] 12.1 mmol/L Normal [facility] Comment on above: Performed By: #### C VDTBH #### [facility] [address] [place] [address] Dr. Grace Abdul AST [Catalytic activity/Vol] 21 U/L Normal 15-37 [facility] Comment on above: Performed By: #### C VDTBH #### [facility] [address] [place] [address] Dr. Grace Abdul Bilirubin [Mass/Vol] 0.2 mg/dL Normal 0.2-1.0 [facility] Comment on above: Performed By: #### C VDTBH #### [facility] [address] [place] [address] Dr. Grace Abdul Calcium [Mass/Vol] 9.3 mg/dL Normal 8.5-10.1 [facility] Comment on above: Performed By: #### C VDTBH #### [facility] [address] [place] [address] Dr. Grace Abdul Chloride [Moles/Vol] 99 mmol/L Normal 98-107 [facility] Comment on above: Performed By: #### C VDTBH #### [facility] [address] [place] [address] [address] Grace Abdul CO2 [Moles/Vol] 31.2 mmol/L Normal 21.0-32.[address] [facility] Comment on above: Performed By: #### C VDTBH #### [facility] [address] [place] [address] [address] Grace Abdul Creatinine [Mass/Vol] 1.22 mg/dL Critically high 0.55-1.02 [facility] Comment on above: Performed By: #### C VDTBH #### [facility] [address] [place] [address] [address] Grace Abdul EGFR-AF AUSTRALIAN 51 mL/min/1.73m2 Critically low >=60 [facility] Comment on above: Performed By: #### C VDTBH #### [facility] [address] [place] [address] Dr. Grace Abdul EGFR-NON AF AUSTRALIAN 42 mL/min/1.73m2 Critically low >=60 [facility] Comment on above: Performed By: #### C VDTBH #### [facility] [address] [place] [address] [address] Grace Abdul Globulin (S) [Mass/Vol] 3.3 g/dL Normal [facility] Comment on above: Performed By: #### C VDTBH #### [facility] [address] [place] [address] [address] Grace Abdul Glucose [Mass/Vol] 115 mg/dL Critically high 74-106 [facility] Comment on above: Performed By: #### C VDTBH #### [facility] [address] [place] [address] [address] Grace Abdul Potassium [Moles/Vol] 3.3 mmol/L Critically low 3.5-5.1 [facility] Comment on above: Performed By: #### C VDTBH #### [facility] [address] [place] [address] [address] Grace Abdul Protein [Mass/Vol] 6.9 g/dL Normal 6.4-8.2 [facility] Comment on above: Performed By: #### C VDTBH #### [facility] [address] [place] [address] [address] Grace Abdul Sodium [Moles/Vol] 139 mmol/L Normal 136-145 [facility] Comment on above: Performed By: #### C VDTBH #### [facility] [address] [place] [address] [address] Grace Abdul Urea nitrogen [Mass/Vol] 23.0 mg/dL Critically high 7.0-18.0 [facility] Comment on above: Performed By: #### C VDTBH #### [facility] [address] [place] [address] [address] Grace Abdul Urea nitrogen/Creatinine [Mass ratio] 18.9 mg/mg Normal [facility] Comment on above: Performed By: #### C VDTB #### [facility] [address] [place] [address] [address] Grace Abdul URINE MICROSCOPIC ONLYon BACTERIA NONE SEEN Normal NONE SEEN [facility] Comment on above: Performed By: #### Anthony ELLISON ICRO ####[facility] [address] [place] [address]Dr. Grace Abdul Bacteria identified Cx Nom (U) NOT INDICATED Normal [facility] Comment on above: Performed By: #### GODWIN FELDERICRO ####[facility] [address]es[address] [place] [address]Dr. Grace Abdul CAST NONE SEEN Normal NONE SEEN [facility] Comment on above: Performed By: #### Anthony ELLISON UMICRO ####[facility] [address]ms[address]mt[address] [place] [address]Dr. Grace Abdul Crystals LM Nom (Urine sed) NONE SEEN Normal NONE SEEN [facility] Comment on above: Performed By: #### Anthony ELLISON UMICRO ####[facility] [address]fh[address] [place] [address]Dr. Grace Abdul Epithelial cells LM Ql (Urine sed) RARE Normal NONE SEEN /RARE [facility] Comment on above: Performed By: #### ROBERT FELDER ####[facility] [address]txf[address] [place] [id number]. Grace Abdul MUCOUS NONE SEEN Normal NONE SEEN [facility] Comment on above: Performed By: #### ROBERT FELDER ####[facility] [address] [place] [address]Dr. Grace Abdul RBC 0-2 Normal 0-2 [facility] Comment on above: Performed By: #### ROBERT FELDER ####[facility] [address] [place] [id number]. Grace Abdul WBC 0-2 Abnormal NONE SEEN [facility] Comment on above: Performed By: #### ROBERT FELDER ####[facility] [address]tab[address] [place] [address]DrLisette Abdul BNPon 12-11-2021 Natriuretic peptide B (Bld) [Mass/Vol] 665.0 pg/mL Normal <=1,800.0 [facility] Comment on above: Performed By: #### B MP #### [facility] [address] [place] [address] [address] Grace Abdul CBC AUTO DIFFon 12-11-2021 BASO # 0.0 103/ul Normal 0.0-0.1 [facility] Comment on above: Performed By: #### C BC ####[facility] [address] [place] [address]Dr. Grace Abdul Basophils/100 WBC (Bld) 0.5 % Normal 0.2-2.0 [facility] Comment on above: Performed By: #### C BC ####[facility] Xrbhqxceqc[address] [place] [id number] Abdul EO # 0.1 103/ul Normal 0.0-0.7 [facility] Comment on above: Performed By: #### C BC ####[facility] Mlunordhbk6[address] [place] [id number] Abdul Eosinophils/100 WBC (Bld) 1.9 % Normal 0.9-7.0 [facility] Comment on above: Performed By: #### C BC ####[facility] Egzzvmdlgh[address] [place] [address]Dr. Grace Abdul Erythrocyte distribution width (RBC) [Ratio] 13.4 % Normal 11.0-15.0 [facility] Comment on above: Performed By: #### C BC ####[facility] Cpqyiaht[address] [place], [place] [address]Dr. Grace Abdul Hematocrit (Bld) [Volume fraction] 36.2 % Normal 36.0-48.0 [facility] Comment on above: Performed By: #### C BC ####[facility] Vtukgdatsm[address] [place], [place] [address]Dr. Grace Abdul Hemoglobin (Bld) [Mass/Vol] 11.9 g/dL Critically low 12.0-16.0 [facility] Comment on above: Performed By: #### C BC ####[facility] Zhaflzscdi[address] [place], [place] [address]Dr. Grace Abdul IG # 0.01 10e3/ul Normal 0.00-0.03 [facility] Comment on above: Performed By: #### C BC ####[facility] Rsomwskkor[address] [place], [place] [address]Dr. Grace Abdul IG % 0.2 % Normal 0.0-0.5 [facility] Comment on above: Performed By: #### C BC ####[facility] Zwolsgicpj[address] [place], [place] [address]Dr. Grace Abdul LYMPH # 0.5 103/ul Critically low 1.2-3.8 [facility] Comment on above: Performed By: #### C BC ####[facility] Ggfsdxkdyl[address] [place], [place] [address]Dr. Grace Abdul Lymphocytes/100 WBC (Bld) 11.5 % Critically low 20.5-60.0 [facility] Comment on above: Performed By: #### C BC ####[facility] Hynsbprjby[address] [place], [place] [address]Dr. Grace Abdul MANUAL DIFF REQ NO Normal [facility] Comment on above: Performed By: #### C BC ####[facility] Nnhnusyhxf[address] [place] [id number]. Grace Abdul MCH (RBC) [Entitic mass] 31.6 pg Normal 26.7-34.0 [facility] Comment on above: Performed By: #### C BC ####[facility] [address]jrieswzbj[address] [place] [address]Dr. Grace Franko MCHC (RBC) [Mass/Vol] 32.9 g/dL Normal 29.9-35.2 [facility] Comment on above: Performed By: #### C BC ####[facility] Ichfvbqehc64[address] [place] [address]Dr. Grace Franko MCV (RBC) [Entitic vol] 96.0 fL Normal 81.0-99.0 [facility] Comment on above: Performed By: #### C BC ####[facility] Vwnbegpqth[address] [place], [place] [address]Dr. Grace Abdul MONO # 0.6 103/ul Normal 0.3-0.8 [facility] Comment on above: Performed By: #### C BC ####[facility] Gdiisneiiw[address] [place], [place] [address]Dr. Benitalee ann Abdul Monocytes/100 WBC (Bld) 14.4 % Critically high 1.7-12.0 [facility] Comment on above: Performed By: #### C BC ####[facility] Tdhioljixn[address] [place], [place] [address]Dr. Benitalee ann Abdul NEUT # 3.0 103/ul Normal 1.4-6.5 [facility] Comment on above: Performed By: #### C BC ####[facility] Qjrovjoxsj[address] [place], [place] [address]DrLisette Abdul Neutrophils/100 WBC (Bld) 71.5 % Normal 43.0-75.0 [facility] Comment on above: Performed By: #### C BC ####[facility] Zxojebxioi[address] [place], [place] [address]DrLisette Abdul Platelet mean volume (Bld) [Entitic vol] 9.2 fL Critically low 9.5-13.5 [facility] Comment on above: Performed By: #### C BC ####[facility] Qwusx[address]oyzh[address] [place], [place] [address]Nv. Grace Abdul PLT 290 103/ul Normal 150-450 [facility] Comment on above: Performed By: #### C BC ####[facility] Gewpkfwvpe1701 [place], [place] [address]Dg. Grace Abdul RBC 3.77 106/ul Critically low 4.20-5.40 [facility] Comment on above: Performed By: #### C BC ####[facility] Pcoznktxln9373 [place], [place] [address]Ie. Grace Abdul WBC 4.2 103/ul Normal 4.0-11.0 [facility] Comment on above: Performed By: #### C BC ####[facility] Qrcauhjpjy[address] [place] [phone]. Grace Abdul FREE THYROXINE INDEX T7on FTI 2.63 Normal 1.30-4.50 [facility] Comment on above: Performed By: #### B MP #### [facility] [address] [place] [address] [address] Grace Abdul T3U 35.0 % Normal 30.0-39.0 [facility] Comment on above: Performed By: #### B MP #### [facility] [address] [place] [address] [address] Grace Abdul T4 [Mass/Vol] 7.50 ug/dL Normal 4.80-13.90 [facility] Comment on above: Performed By: #### B MP #### [facility] [address] [place] [address] [address] Grace Abdul GLYCOHEMOGLOBIN A1Con 2021 ADA RECOMMENDATION SEE BELOW Normal [facility] Comment on above: Result Comment: ADA RECOMMENDED LIMIT 4.0 - 6.0 ADA THERAPEUTIC TARGET < 7.0 ACTION SUGGESTED > 7.0 Performed By: #### A 1C ####[facility] [address]ws[address]fcwg[address] [place] [address]Dr. Grace Abdul Glucose [Mass/Vol] 111 mg/dL Normal [facility] Comment on above: Performed By: #### A 1C ####[facility] [address]zehgc[address]hb[address] [place] [address]DrLisette Abdul HbA1c (Bld) [Mass fraction] 5.5 % Normal 4.5-6.2 [facility] Comment on above: Performed By: #### A 1C ####[facility] Tyxfnguekr[address] [place] [address]DrLisette Abdul IRONon 12-11-2021 Iron [Mass/Vol] 50.0 ug/dL Normal 50.0-170.0 [facility] Comment on above: Performed By: #### I KASANDRA WEBSTER, VITB12 ####[facility] [address] [place] [address]Dr. Grace Abdul LIPID PROFILEon 12-11-2021 CHOL-HDL RATIO NORM SEE BELOW Normal [facility] Comment on above: Result Comment: 3.3 - 4.4 LOW RISK 4.4 - 7.1 AVERAGE RISK 7.1 - 11.0 MODERATE RISK >11.0 HIGH RISK Performed By: #### B MP #### [facility] [address] [address] [address] Grace Abdul Cholesterol [Mass/Vol] 182 mg/dL Normal <=200 [facility] Comment on above: Performed By: #### B MP #### [facility] [address] [place] [address] [address] Grace Abdul Cholesterol in HDL [Mass/Vol] 60 mg/dL Normal 40-60 [facility] Comment on above: Performed By: #### B MP #### [facility] [address] [address] [address] Grace Abdul Cholesterol in LDL [Mass/Vol] 101.2 mg/dL Normal [facility] Comment on above: Performed By: #### B MP #### [facility] [address] [address] [address] Grace Abdul Cholesterol.total/Ch olesterol in HDL [Mass ratio] 3.0 {ratio} Normal [facility] Comment on above: Performed By: #### B MP #### [facility] [address] [address] [address] Grace Abdul HDL NORMAL > or = 60 mg/dl - LO W CARDIOVASCULAR RISK <40 mg/dl - HIGH CARDIOVASCULAR RISK Normal [facility] Comment on above: Performed By: #### B MP #### [facility] [address] [address] [address] Grace Abdul LDL CALC NORMAL SEE BELOW Normal [facility] Comment on above: Result Comment: <100 mg/dl OPTIMAL 100 - 129 mg/dl NEAR OR ABOVE OPTIMAL 130 - 159 mg/dl BORDERLINE HIGH 160 - 189 mg/dl HIGH >190 mg/dl VERY HIGH Performed By: #### B MP #### [facility] [address] [place] [address] Dr. Grace Abdul Triglyceride [Mass/Vol] 104 mg/dL Normal <=150 [facility] Comment on above: Performed By: #### B MP #### [facility] [address] [place] [address] [address] Grace Abdul VLDL CALC 20.8 mg/dL Normal [facility] Comment on above: Performed By: #### B MP #### [facility] [address] [place] [address] Dr. Grace Abdul PROF 14(COMP METB)on 022 Albumin [Mass/Vol] 3.5 g/dL Normal 3.4-5.0 [facility] Comment on above: Performed By: #### B MP #### [facility] [address] [place] [address] Dr. Grace Abdul Albumin/Globulin [Mass ratio] 1.0 {ratio} Normal [facility] Comment on above: Performed By: #### B MP #### [facility] [address] [place] [address] Dr. Grace Abdul ALP [Catalytic activity/Vol] 55 U/L Normal 46-116 [facility] Comment on above: Performed By: #### B MP #### [facility] [address] [place] [address] Dr. Grace Abdul ALT [Catalytic activity/Vol] 21 U/L Normal 14-59 [facility] Comment on above: Performed By: #### B MP #### [facility] [address] [place] [address] [address] Grace Abdul Anion gap [Moles/Vol] 9.3 mmol/L Normal [facility] Comment on above: Performed By: #### B MP #### [facility] [address] [place] [address] [address] Grace Abdul AST [Catalytic activity/Vol] 21 U/L Normal 15-37 [facility] Comment on above: Performed By: #### B MP #### [facility] [address] [place] [address] [address] Grace Abdul Bilirubin [Mass/Vol] 0.3 mg/dL Normal 0.2-1.0 [facility] Comment on above: Performed By: #### B MP #### [facility] [address] [place] [address] [address] Grace Abdul Calcium [Mass/Vol] 9.5 mg/dL Normal 8.5-10.1 [facility] Comment on above: Performed By: #### B MP #### [facility] [address] [place] [address] [address] Grace Abdul Chloride [Moles/Vol] 102 mmol/L Normal 98-107 [facility] Comment on above: Performed By: #### B MP #### [facility] [address] [place] [address] [address] Grace Abdul CO2 [Moles/Vol] 28.5 mmol/L Normal 21.0-32.[address] [facility] Comment on above: Performed By: #### B MP #### [facility] [address] [place] [address] [address] Grace Abdul Creatinine [Mass/Vol] 1.04 mg/dL Critically high 0.55-1.02 [facility] Comment on above: Performed By: #### B MP #### [facility] [address] [address] [address] Grace Abdul EGFR-AF AUSTRALIAN >60 Normal >=[address] [facility] Comment on above: Performed By: #### B MP #### [facility] [address] [place] [address] [address] Grace Abdul EGFR-NON AF AUSTRALIAN 51 mL/min/1.73m2 Critically low >=60 [facility] Comment on above: Performed By: #### B MP #### [facility] [address] [address] [address] Grace Abdul Globulin (S) [Mass/Vol] 3.5 g/dL Normal [facility] Comment on above: Performed By: #### B MP #### [facility] [address] [address] [address] Grace Abdul Glucose [Mass/Vol] 102 mg/dL Normal 74-106 [facility] Comment on above: Performed By: #### B MP #### [facility] [address] [place] [address] [address] Grace Abdul Potassium [Moles/Vol] 3.8 mmol/L Normal 3.5-5.1 [facility] Comment on above: Performed By: #### B MP #### [facility] [address] [place] [address] [address] Grace Abdul Protein [Mass/Vol] 7.0 g/dL Normal 6.4-8.2 [facility] Comment on above: Performed By: #### B MP #### [facility] [address] [place] [address] [address] Grace Abdul Sodium [Moles/Vol] 136 mmol/L Normal 136-145 [facility] Comment on above: Performed By: #### B MP #### [facility] [address] [place] [address] [address] Grace Abdul Urea nitrogen [Mass/Vol] 20.0 mg/dL Critically high 7.0-18.0 [facility] Comment on above: Performed By: #### B MP #### [facility] [address] [address] [address] Grace Abdul Urea nitrogen/Creatinine [Mass ratio] 19.2 mg/mg Normal [facility] Comment on above: Performed By: #### B MP #### [facility] [address] [place] [address] [address] Grace Abdul TSHon 12-11-2021 TSH 0.247 uIU/mL Critically low 0.358-3.740 [facility] Comment on above: Performed By: #### B MP #### [facility] [address] [place] [address] [address] Grace Abdul VITAMIN B12on 12-11-2021 Cobalamin (Vitamin B12) [Mass/Vol] 762.0 pg/mL Normal 193.0-986.0 [facility] Comment on above: Performed By: #### I DARIN VITAD, VITB12 ####[facility] [address] [place] [address]Dr. Grace Abdul VITAMIN D 25 OHon 12-11-2021 VIT D 25-OH 54.9 ng/mL Normal [facility] Comment on above: Performed By: #### I DARIN VITAD, VITB12 ####[facility] [address] [place] [address]DrLisette Abdul VIT D RANGES SEE BELOW Normal [facility] Comment on above: Result Comment: <20 ng/mL Vit D deficient 20 - <30 ng/mL Vit D insufficient 30 - 100 ng/mL Vit D sufficient >100 ng/mL Potential Toxicity Performed By: #### I DARIN, VITAD, VITB12 ####[facility] [address] [place] [address]DrLisette Adbul MG MAMM SCREEN 3D CLEMENCIA CADon 11-25-2021 MG MAMM SCREEN 3D CLEMENCIA CAD Patient: ALEXA DELGADO Exam Date: 11/25/2021 : 1940 Gender:F Ordering : DR GALINA ROGERS . Admission #: [id number] Family : DR ARMANDO MORALES Order #: [id number] CLICK HERE TO VIEW EXAM RADIOLOGY REPORT [...] Treatments None Family Cancers None LOCATION: [facility] BREAST COMPOSITION: Scattered areas fibroglandular density. [...] LUMP SHOULD BE BIOPSIED. Dictated by: Hermes Mnedoza MD on 11/25/2021 at 14:12 Approved by: Hermes Mendoza MD on 11/25/2021 at 14:14 Normal [facility] CULTURE URINEon 11-24-2021 CULTURE URINE Culture Observations : LIGHT GROWTH OF MIXED GENITAL ALANIS. NO POTENTIAL PATHOGENS SEEN. Normal [facility] Comment on above: Performed By: #### U RCX ####[facility] [address] [place] [address]Dr. Grace Abdul GI PANEL (PCR)on 11-24-2021 Adenovirus F 40/41 Not detected Normal NOT DETECTED [facility] Comment on above: Performed By: #### C BC #### [facility] [address] [place] [address] Dr. Grace Abdul Astrovirus Not detected Normal NOT DETECTED [facility] [place] [facility] Comment on above: Performed By: #### C BC #### [facility] [address] [address] [address] Grace Abdul C. Diff toxin A/B Not detected Normal NOT DETECTED [facility] Comment on above: Performed By: #### C BC #### [facility] [address] [address] [address] Grace Abdul Campylobacter Not detected Normal NOT DETECTED [facility] Comment on above: Performed By: #### C BC #### [facility] [address] [place] [address] Dr. Grace Abdul Cryptosporidium Not detected Normal NOT DETECTED [facility] Comment on above: Performed By: #### C BC #### [facility] [address] [place] [address] Dr. Grace Abdul Cyclos. Cayetanensis Not detected Normal NOT DETECTED [facility] Comment on above: Performed By: #### C BC #### [facility] [address] [place] [address] Dr. Grace Abdul E. Coli O157 Not Applicable Normal Not Applicable [facility] Comment on above: Performed By: #### C BC #### [facility] [address] [place] [address] Dr. Grace Abdul E. histolytica Not detected Normal NOT DETECTED [facility] Comment on above: Performed By: #### C BC #### [facility] [address] [place] [address] Dr. Grace Abdul EAEC Not detected Normal NOT DETECTED [facility] [place] [facility] Comment on above: Performed By: #### C BC #### [facility] [address] [place] [address] Dr. Grace Abdul EIEC Not detected Normal NOT DETECTED [facility] [place] [facility] Comment on above: Performed By: #### C BC #### [facility] [address] [place] [address] Dr. Grace Abdul EPEC Not detected Normal NOT DETECTED [facility] [place] [facility] Comment on above: Performed By: #### C BC #### [facility] [address] [place] [address] Dr. Grace Abdul ETEC Not detected Normal NOT DETECTED [facility] [place] [facility] Comment on above: Performed By: #### C BC #### [facility] [address] [place] [address] Dr. Grace Abdul G. Lamblia Not detected Normal NOT DETECTED [facility] [place] [facility] Comment on above: Performed By: #### C BC #### [facility] [address] [place] [address] Dr. Grace BURGESSL CONTROLS PASSED Normal [facility] Comment on above: Performed By: #### C BC #### [facility] [address] [place] [address] Dr. Grace NOLASCONL KAUR HEADER GI PANEL BACTERIA Normal [facility] Comment on above: Performed By: #### C BC #### [facility] [address] [address] [address] Grace SANDERS ECOLI GI PANEL DIARRHEAGEN IC E.COLI / SHIGELLA Normal [facility] Comment on above: Performed By: #### C BC #### [facility] [address] [address] [address] Grace SANDERS INFO SEE BELOW Normal [facility] Comment on above: Result Comment: EAEC - Enteroaggregative E. Coli EPEC- Enteropathogenic E. Coli ETEC- Enterotoxigenic E. Coli lt/st STEC- Shigella-like toxin-producing E. Coli stx1/stx2 EIEC- Shigella/Enteroinvasive E. Coli Performed By: #### C BC #### [facility] [address] [address] [address] Grace SANDERS PARASITES GI PANEL PARASITES Normal [facility] Comment on above: Performed By: #### C BC #### [facility] [address] [address] [address] Grace SANDERS VIRUS GI PANEL VIRUSES Normal [facility] Comment on above: Performed By: #### C BC #### [facility] [address] [address] [address] Grace Abdul Norovirus GI/GII Not detected Normal NOT DETECTED [facility] Comment on above: Performed By: #### C BC #### [facility] [address] [address] [address] Grace Abdul P. Shigelloides Not detected Normal NOT DETECTED [facility] Comment on above: Performed By: #### C BC #### [facility] [address] [address] [address] Grace Abdul Rotavirus A Not detected Normal NOT DETECTED [facility] Comment on above: Performed By: #### C BC #### [facility] [address] [place] [address] Dr. Grace Abdul Salmonella Not detected Normal NOT DETECTED [facility] [place] [facility] Comment on above: Performed By: #### C BC #### [facility] [address] [place] [address] Dr. Grace Abdul Sapovirus Not detected Normal NOT DETECTED [facility] [place] [facility] Comment on above: Performed By: #### C BC #### [facility] [address] [place] [address] Dr. Grace Abdul STEC Not detected Normal NOT DETECTED [facility] [place] [facility] Comment on above: Performed By: #### C BC #### [facility] [address] [place] [address] Dr. Grace Abdul Vibrio Not detected Normal NOT DETECTED [facility] [place] [facility] Comment on above: Performed By: #### C BC #### [facility] [address] [place] [address] Dr. Grace Abdul Vibrio Cholera Not detected Normal NOT DETECTED [facility] Comment on above: Performed By: #### C BC #### [facility] [address] [place] [address] Dr. Grace Abdul Y. Enterocolitica Not detected Normal NOT DETECTED [facility] Comment on above: Performed By: #### C BC #### [facility] [address] [place] [address] Dr. Grace Abdul UA RANDOM W/MICROSCOPICon BACTERIA NONE SEEN Normal NONE SEEN [facility] Comment on above: Performed By: #### U AMIC ####[facility] [address] [place] [address]DrLisette Abdul Bilirubin Ql (U) Negative Normal NEGATIVE [facility] Comment on above: Performed By: #### U AMIC ####[facility] [address] [place] [address]DrLisette Abdul CAST NONE SEEN Normal NONE SEEN [facility] Comment on above: Performed By: #### U AMIC ####[facility] [address] [place] [address]DrLisette Abdul Clarity (U) CLEAR Normal CLEAR [facility] Comment on above: Performed By: #### U AMIC ####[facility] [address] [place] [address]DrLisette Abdul Color (U) LT. YELLOW Normal YELLOW [facility] Comment on above: Performed By: #### U AMIC ####[facility] [address] [place] [address]Dr. Grace Abdul Crystals LM Nom (Urine sed) NONE SEEN Normal NONE SEEN [facility] Comment on above: Performed By: #### U AMIC ####[facility] [address] [place] [address]Dr. Grace Abdul Epithelial cells LM Ql (Urine sed) FEW Abnormal NONE SEEN /RARE [facility] Comment on above: Performed By: #### U AMIC ####[facility] [address] [place] [address]Dr. Grace Abdul Glucose Ql (U) Negative Normal NEGATIVE [facility] [place] [facility] Comment on above: Performed By: #### U AMIC ####[facility] [address] [place] [address]Dr. Grace Abdul Hemoglobin Ql (U) TRACE-INTACT Abnormal NEGATIVE [facility] Comment on above: Performed By: #### U AMIC ####[facility] [address] [place], [place] [address]Dr. Grace Abdul Ketones Ql (U) Negative Normal NEGATIVE [facility] [place] [facility] Comment on above: Performed By: #### U AMIC ####[facility] [address] [place] [address]Dr. Grace Abdul LEUKOCYTES Negative Normal NEGATIVE [facility] Comment on above: Performed By: #### U AMIC ####[facility] [address] [place], [place] [address]Dr. Grace Abdul MUCOUS NONE SEEN Normal NONE SEEN [facility] Comment on above: Performed By: #### U AMIC ####[facility] [address] [place], [place] [address]Dr. Grace Abdul Nitrite Ql (U) Negative Normal NEGATIVE [facility] [place] [facility] Comment on above: Performed By: #### U AMIC ####[facility] [address] [place] [address]Dr. Grace Abdul pH (U) 7.5 [pH] Normal 5-9 [facility] Comment on above: Performed By: #### U AMIC ####[facility] [address] [place] [id number]. Grace Abdul RBC 0-2 Normal 0-2 [facility] Comment on above: Performed By: #### U AMIC ####[facility] [address] [place] [id number]. Grace Abdul SPEC GRAVITY 1.010 Normal 1.005-<=1.025 [facility] Comment on above: Performed By: #### U AMIC ####[facility] [address] [place] [id number]. Grace Abdul UA PROTEIN Negative Normal NEGATIVE/ TRACE [facility] Comment on above: Performed By: #### U AMIC ####[facility] [address] [place] [address]Dr. Grace Abdul Urobilinogen Qn (U) 0.2 {Ashley'U}/dL Normal 0.2 - 1. 0 [facility] Comment on above: Performed By: #### U AMIC ####[facility] [address] [place] [address]Dr. Grace Abdul WBC NONE SEEN Normal NONE SEEN [facility] Comment on above: Performed By: #### U AMIC ####[facility] [address] [place] [address]Dr. Grace Abdul CBC AUTO DIFFon 11-23-2021 BASO # 0.0 103/ul Normal 0.0-0.1 [facility] Comment on above: Performed By: #### C BC #### [facility] [address] [place] [address] [address] Grace Abdul Basophils/100 WBC (Bld) 0.4 % Normal 0.2-2.0 [facility] Comment on above: Performed By: #### C BC #### [facility] [address] [address] [address] Grace Abdul EO # 0.1 103/ul Normal 0.0-0.7 [facility] Comment on above: Performed By: #### C BC #### [facility] [address] [place] [address] Dr. Grace Abdul Eosinophils/100 WBC (Bld) 1.5 % Normal 0.9-7.0 [facility] Comment on above: Performed By: #### C BC #### [facility] [address] [place] [address] Dr. Grace Abdul Erythrocyte distribution width (RBC) [Ratio] 13.2 % Normal 11.0-15.0 [facility] Comment on above: Performed By: #### C BC #### [facility] [address] [place] [address] Dr. Grace Abdul Hematocrit (Bld) [Volume fraction] 31.9 % Critically low 36.0-48.0 [facility] Comment on above: Performed By: #### C BC #### [facility] [address] [place] [address] Dr. Grace Abdul Hemoglobin (Bld) [Mass/Vol] 10.5 g/dL Critically low 12.0-16.0 [facility] Comment on above: Performed By: #### C BC #### [facility] [address] [place] [address] Dr. Grace Abdul IG # 0.01 10e3/ul Normal 0.00-0.03 [facility] Comment on above: Performed By: #### C BC #### [facility] [address] [place] [address] Dr. Grace Abdul IG % 0.2 % Normal 0.0-0.5 [facility] Comment on above: Performed By: #### C BC #### [facility] [address] [place] [address] Dr. Grace Abdul LYMPH # 0.7 103/ul Critically low 1.2-3.8 [facility] [place] [facility] Comment on above: Performed By: #### C BC #### [facility] [address] [place] [address] Dr. Grace Abdul Lymphocytes/100 WBC (Bld) 14.8 % Critically low 20.5-60.0 [facility] Comment on above: Performed By: #### C BC #### [facility] [address] [place] [address] Dr. Grace Abdul MANUAL DIFF REQ NO Normal [facility] Comment on above: Performed By: #### C BC #### [facility] [address] [place] [address] Dr. Grace Abdul MCH (RBC) [Entitic mass] 31.4 pg Normal 26.7-34.0 [facility] Comment on above: Performed By: #### C BC #### [facility] [address] [place] [address] Dr. Grace Abdul MCHC (RBC) [Mass/Vol] 32.9 g/dL Normal 29.9-35.2 [facility] Comment on above: Performed By: #### C BC #### [facility] [address] [place] [address] Dr. Grace Abdul MCV (RBC) [Entitic vol] 95.5 fL Normal 81.0-99.0 [facility] Comment on above: Performed By: #### C BC #### [facility] [address] [place] [address] Dr. Grace Abdul MONO # 0.6 103/ul Normal 0.3-0.8 [facility] Comment on above: Performed By: #### C BC #### [facility] [address] [place] [address] Dr. Grace Abdul Monocytes/100 WBC (Bld) 13.4 % Critically high 1.7-12.0 [facility] Comment on above: Performed By: #### C BC #### [facility] [address] [place] [address] Dr. Grace Abdul NEUT # 3.3 103/ul Normal 1.4-6.5 [facility] Comment on above: Performed By: #### C BC #### [facility] [address] [place] [address] Dr. Grace Abdul Neutrophils/100 WBC (Bld) 69.7 % Normal 43.0-75.0 [facility] Comment on above: Performed By: #### C BC #### [facility] [address] [place], [place] [id number] Dr. Grace Abdul Platelet mean volume (Bld) [Entitic vol] 9.1 fL Critically low 9.5-13.5 [facility] Comment on above: Performed By: #### C BC #### [facility] [address] [place] [address] [address] Grace Abdul PLT 335 103/ul Normal 150-450 [facility] Comment on above: Performed By: #### C BC #### [facility] [address] [place] [address] [address] Grace Abdul RBC 3.34 106/ul Critically low 4.20-5.40 [facility] Comment on above: Performed By: #### C BC #### [facility] [address] [place] [address] [address] Grace Abdul WBC 4.8 103/ul Normal 4.0-11.0 [facility] Comment on above: Performed By: #### C BC #### [facility] [address] [place] [address] [address] Grace Abdul FREE THYROXINE INDEX T7on FTI 1.15 Critically low 1.30-4.50 [facility] Comment on above: Performed By: #### T 7, CMP, TSH ####[facility] [address] [place] [address]DrLisette Abdul T3U 31.0 % Normal 30.0-39.0 [facility] Comment on above: Performed By: #### T 7, CMP, TSH ####[facility] [address] [place] [address]Dr. Grace Abdul T4 [Mass/Vol] 3.70 ug/dL Critically low 4.80-13.90 [facility] Comment on above: Performed By: #### T 7, CMP, TSH ####[facility] [address] [place] [address]Dr. Grace Abdul IRONon 11-23-2021 Iron [Mass/Vol] 52.0 ug/dL Normal 50.0-170.0 [facility] Comment on above: Performed By: #### C VDTBH #### [facility] [address] [place], [place] [address] Dr. Grace Abdul PROF 14(COMP METB)on 022 Albumin [Mass/Vol] 3.5 g/dL Normal 3.4-5.0 [facility] Comment on above: Performed By: #### T 7, CMP, TSH ####[facility] [address] [place] [id number]. Grace Abdul Albumin/Globulin [Mass ratio] 1.1 {ratio} Normal [facility] Comment on above: Performed By: #### T 7, CMP, TSH ####[facility] [address] [place] [address]Dr. Grace Abdul ALP [Catalytic activity/Vol] 69 U/L Normal 46-116 [facility] Comment on above: Performed By: #### T 7, CMP, TSH ####[facility] [address] [place] [address]Dr. Grace Abdul ALT [Catalytic activity/Vol] 51 U/L Normal 14-59 [facility] Comment on above: Performed By: #### T 7, CMP, TSH ####[facility] [address] [place] [address]Dr. Grace Abdul Anion gap [Moles/Vol] 11.5 mmol/L Normal [facility] Comment on above: Performed By: #### T 7, CMP, TSH ####[facility] [address] [place] [address]Dr. Grace Abdul AST [Catalytic activity/Vol] 24 U/L Normal 15-37 [facility] Comment on above: Performed By: #### T 7, CMP, TSH ####[facility] [address] [place] [id number]. Grace Abdul Bilirubin [Mass/Vol] 0.2 mg/dL Normal 0.2-1.0 [facility] Comment on above: Performed By: #### T 7, CMP, TSH ####[facility] [address] [place] [address]Dr. Grace Abdul Calcium [Mass/Vol] 9.3 mg/dL Normal 8.5-10.1 [facility] Comment on above: Performed By: #### T 7, CMP, TSH ####[facility] [address] [place] [address]Dr. Grace Abdul Chloride [Moles/Vol] 98 mmol/L Normal 98-107 [facility] Comment on above: Performed By: #### T 7, CMP, TSH ####[facility] [address] [place] [address]Dr. Grace Abdul CO2 [Moles/Vol] 28.7 mmol/L Normal 21.0-32.0 [facility] Comment on above: Performed By: #### T 7, LEONOR, TSH ####[facility] [address] [place], [place] [address]Dr. Grace Abdul Creatinine [Mass/Vol] 1.11 mg/dL Critically high 0.55-1.02 [facility] Comment on above: Performed By: #### Ainsley 7, LEONOR, TSH ####[facility] [address] [place] [address]Dr. Grace Abdul EGFR-AF AUSTRALIAN 57 mL/min/1.73m2 Critically low >=60 [facility] Comment on above: Performed By: #### T 7, LEONOR, TSH ####[facility] [address] [place], [place] [address]Dr. Grace Abdul EGFR-NON AF AUSTRALIAN 47 mL/min/1.73m2 Critically low >=60 [facility] Comment on above: Performed By: #### T 7, CMP, TSH ####[facility] [address] [place] [address]Dr. Grace Abdul Globulin (S) [Mass/Vol] 3.3 g/dL Normal [facility] Comment on above: Performed By: #### T 7, CMP, TSH ####[facility] [address] [place] [address]Dr. Grace Abdul Glucose [Mass/Vol] 88 mg/dL Normal 74-106 [facility] Comment on above: Performed By: #### T 7, CMP, TSH ####[facility] [address] [place] [id number]. Grace Abdul Potassium [Moles/Vol] 4.2 mmol/L Normal 3.5-5.1 [facility] Comment on above: Performed By: #### T 7, CMP, TSH ####[facility] [address] [place] [id number]. Grace Abdul Protein [Mass/Vol] 6.8 g/dL Normal 6.4-8.2 [facility] Comment on above: Performed By: #### T 7, CMP, TSH ####[facility] [address] [place] [address]Dr. Grace Abdul Sodium [Moles/Vol] 134 mmol/L Critically low 136-145 [facility] Comment on above: Performed By: #### T 7, CMP, TSH ####[facility] [address] [place] [address]Dr. Grace Abdul Urea nitrogen [Mass/Vol] 33.0 mg/dL Critically high 7.0-18.0 [facility] Comment on above: Performed By: #### T 7, CMP, TSH ####[facility] [address] [place] [address]Dr. Grace Abdul Urea nitrogen/Creatinine [Mass ratio] 29.7 mg/mg Normal [facility] Comment on above: Performed By: #### T 7, CMP, TSH ####[facility] [address] [place] [address]Dr. Grace Abdul TSHon 11-23-2021 TSH 0.469 uIU/mL Normal 0.358-3.740 [facility] Comment on above: Performed By: #### T 7, CMP, TSH ####[facility] [address] [place] [address]Dr. Grace Abudl CBC AUTO DIFFon 11-17-2021 BASO # 0.0 103/ul Normal 0.0-0.1 [facility] Comment on above: Performed By: #### C VDTBH #### [facility] [address] [place] [address] [address] Grace Abdul Basophils/100 WBC (Bld) 0.2 % Normal 0.2-2.0 [facility] Comment on above: Performed By: #### C VDTBH #### [facility] [address] [place] [address] Dr. Grace Abdul EO # 0.1 103/ul Normal 0.0-0.7 [facility] Comment on above: Performed By: #### C VDTBH #### [facility] [address] [place] [address] Dr. Grace Abdul Eosinophils/100 WBC (Bld) 0.9 % Normal 0.9-7.0 [facility] Comment on above: Performed By: #### C VDTBH #### [facility] [address] [place] [address] Dr. Grace Abdul Erythrocyte distribution width (RBC) [Ratio] 12.8 % Normal 11.0-15.0 [facility] Comment on above: Performed By: #### C VDTBH #### [facility] [address] [place] [address] Dr. Grace Abdul Hematocrit (Bld) [Volume fraction] 35.2 % Critically low 36.0-48.0 [facility] Comment on above: Performed By: #### C VDTBH #### [facility] [address] [place] [address] Dr. Grace Abdul Hemoglobin (Bld) [Mass/Vol] 12.1 g/dL Normal 12.0-16.0 [facility] Comment on above: Performed By: #### C VDTBH #### [facility] [address] [place] [address] Dr. Grace Abdul IG # 0.05 10e3/ul Critically high 0.00-0.03 [facility] Comment on above: Performed By: #### C VDTBH #### [facility] [address] [place] [address] Dr. Grace Abdul IG % 0.6 % Critically high 0.0-0.5 [facility] Comment on above: Performed By: #### C VDTBH #### [facility] [address] [place] [address] [address] Grace Abdul LYMPH # 0.6 103/ul Critically low 1.2-3.8 [facility] [place] [facility] Comment on above: Performed By: #### C VDTBH #### [facility] [address] [place] [address] [address] Grace Abdul Lymphocytes/100 WBC (Bld) 7.4 % Critically low 20.5-60.0 [facility] Comment on above: Performed By: #### C VDTBH #### [facility] [address] [address] [address] Grace Abdul MANUAL DIFF REQ NO Normal [facility] Comment on above: Performed By: #### C VDTBH #### [facility] [address] [place] [address] Dr. Grace Abdul MCH (RBC) [Entitic mass] 31.5 pg Normal 26.7-34.0 [facility] Comment on above: Performed By: #### C VDTBH #### [facility] [address] [place] [address] Dr. Grace Abdul MCHC (RBC) [Mass/Vol] 34.4 g/dL Normal 29.9-35.2 [facility] Comment on above: Performed By: #### C VDTBH #### [facility] [address] [place] [address] Dr. Grace Abdul MCV (RBC) [Entitic vol] 91.7 fL Normal 81.0-99.0 [facility] Comment on above: Performed By: #### C VDTBH #### [facility] [address] [address] [address] Grace Abdul MONO # 1.0 103/ul Critically high 0.3-0.8 [facility] Comment on above: Performed By: #### C VDTBH #### [facility] [address] [place] [address] Dr. Grace Abdul Monocytes/100 WBC (Bld) 12.1 % Critically high 1.7-12.0 [facility] Comment on above: Performed By: #### C VDTBH #### [facility] [address] [address] [address] Grace Abdul NEUT # 6.3 103/ul Normal 1.4-6.5 [facility] Comment on above: Performed By: #### C VDTBH #### [facility] [address] [place] [address] Dr. Grace Abdul Neutrophils/100 WBC (Bld) 78.8 % Critically high 43.0-75.0 [facility] Comment on above: Performed By: #### C VDTBH #### [facility] [address] [place] [address] Dr. Grace Abdul Platelet mean volume (Bld) [Entitic vol] 9.1 fL Critically low 9.5-13.5 [facility] Comment on above: Performed By: #### C VDTBH #### [facility] [address] [place] [address] Dr. Grace Abdul PLT 281 103/ul Normal 150-450 [facility] Comment on above: Performed By: #### C VDTBH #### [facility] [address] [place] [address] Dr. Grace Abdul RBC 3.84 106/ul Critically low 4.20-5.40 [facility] Comment on above: Performed By: #### C VDTBH #### [facility] [address] [place] [address] Dr. Grace Abdul WBC 8.0 103/ul Normal 4.0-11.0 [facility] Comment on above: Performed By: #### C VDTBH #### [facility] [address] [place] [address] Dr. Grace Abdul MAGNESIUMon 11-17-2021 Magnesium [Mass/Vol] 1.9 mg/dL Normal 1.8-2.4 [facility] Comment on above: Performed By: #### C VDTBH #### [facility] [address] [place] [address] Dr. Grace Abdul PROF CHEM 8 (BAS METB)on Anion gap [Moles/Vol] 13.9 mmol/L Normal [facility] Comment on above: Performed By: #### C VDTBH #### [facility] [address] [place] [address] Dr. Grace Abdul Calcium [Mass/Vol] 8.7 mg/dL Normal 8.5-10.1 [facility] Comment on above: Performed By: #### C VDTBH #### [facility] [address] [place] [address] Dr. Grace Abdul Chloride [Moles/Vol] 101 mmol/L Normal 98-107 [facility] Comment on above: Performed By: #### C VDTBH #### [facility] [address] [place] [address] Dr. Grace Abdul CO2 [Moles/Vol] 24.3 mmol/L Normal 21.0-32.[address] [facility] Comment on above: Performed By: #### C VDTBH #### [facility] [address] [place] [address] Dr. Grace Abdul Creatinine [Mass/Vol] 0.89 mg/dL Normal 0.55-1.02 [facility] Comment on above: Performed By: #### C VDTBH #### [facility] [address] [place] [address] Dr. Grace Abdul EGFR-AF AUSTRALIAN >60 Normal >=60 [facility] Comment on above: Performed By: #### C VDTBH #### [facility] [address] [place] [address] Dr. Grace Abdul EGFR-NON AF AUSTRALIAN >60 Normal >=60 [facility] Comment on above: Performed By: #### C VDTBH #### [facility] [address] [place] [address] Dr. Grace Abdul Glucose [Mass/Vol] 97 mg/dL Normal 74-106 [facility] Comment on above: Performed By: #### C VDTBH #### [facility] [address] [place] [address] Dr. Grace Abdul Potassium [Moles/Vol] 3.2 mmol/L Critically low 3.5-5.1 [facility] Comment on above: Performed By: #### C VDTBH #### [facility] [address] [place] [address] Dr. Grace Abdul Sodium [Moles/Vol] 136 mmol/L Normal 136-145 [facility] Comment on above: Performed By: #### C VDTBH #### [facility] [address] [place] [address] Dr. Grace Abdul Urea nitrogen [Mass/Vol] 14.0 mg/dL Normal 7.0-18.0 [facility] Comment on above: Performed By: #### C VDTBH #### [facility] [address] [place] [address] Dr. Grace Abdul Urea nitrogen/Creatinine [Mass ratio] 15.7 mg/mg Normal [facility] Comment on above: Performed By: #### C VDTBH #### [facility] [address] [place] [address] Dr. Grace Abdul CBC AUTO DIFFon 11-16-2021 BASO # 0.0 103/ul Normal 0.0-0.1 [facility] Comment on above: Performed By: #### B MP #### [facility] [address] [place] [address] Dr. Grace Abdul Basophils/100 WBC (Bld) 0.2 % Normal 0.2-2.0 [facility] Comment on above: Performed By: #### B MP #### [facility] [address] [place] [address] Dr. Grace Abdul EO # 0.0 103/ul Normal 0.0-0.7 [facility] Comment on above: Performed By: #### B MP #### [facility] [address] [place] [address] Dr. Grace Abdul Eosinophils/100 WBC (Bld) 0.5 % Critically low 0.9-7.0 [facility] Comment on above: Performed By: #### B MP #### [facility] [address] [place] [address] Dr. Grace Abdul Erythrocyte distribution width (RBC) [Ratio] 12.4 % Normal 11.0-15.0 [facility] Comment on above: Performed By: #### B MP #### [facility] [address] [place] [address] Dr. Grace Abdul Hematocrit (Bld) [Volume fraction] 33.6 % Critically low 36.0-48.0 [facility] Comment on above: Performed By: #### B MP #### [facility] [address] [place] [address] Dr. Grace Abdul Hemoglobin (Bld) [Mass/Vol] 11.8 g/dL Critically low 12.0-16.0 [facility] Comment on above: Performed By: #### B MP #### [facility] [address] [place] [address] Dr. Grace Abdul IG # 0.04 10e3/ul Critically high 0.00-0.03 [facility] Comment on above: Performed By: #### B MP #### [facility] [address] [place] [address] Dr. Grace Abdul IG % 0.7 % Critically high 0.0-0.5 [facility] Comment on above: Performed By: #### B MP #### [facility] [address] [place] [address] Dr. Grace Abdul LYMPH # 0.7 103/ul Critically low 1.2-3.8 [facility] Comment on above: Performed By: #### B MP #### [facility] [address] [place] [address] Dr. Grace Abdul Lymphocytes/100 WBC (Bld) 11.1 % Critically low 20.5-60.0 [facility] Comment on above: Performed By: #### B MP #### [facility] [address] [place] [address] Dr. Grace Abdul MANUAL DIFF REQ NO Normal [facility] Comment on above: Performed By: #### B MP #### [facility] [address] [place] [address] Dr. Grace Abdul MCH (RBC) [Entitic mass] 31.5 pg Normal 26.7-34.0 [facility] Comment on above: Performed By: #### B MP #### [facility] [address] [place] [address] Dr. Grace Abdul MCHC (RBC) [Mass/Vol] 35.1 g/dL Normal 29.9-35.2 [facility] Comment on above: Performed By: #### B MP #### [facility] [address] [place] [address] Dr. Grace Abdul MCV (RBC) [Entitic vol] 89.6 fL Normal 81.0-99.0 [facility] Comment on above: Performed By: #### B MP #### [facility] [address] [place] [address] Dr. Grace Abdul MONO # 0.9 103/ul Critically high 0.3-0.8 [facility] Comment on above: Performed By: #### B MP #### [facility] [address] [place] [address] Dr. Grace Abdul Monocytes/100 WBC (Bld) 14.0 % Critically high 1.7-12.0 [facility] Comment on above: Performed By: #### B MP #### [facility] [address] [place] [address] Dr. Grace Abdul NEUT # 4.5 103/ul Normal 1.4-6.5 [facility] Comment on above: Performed By: #### B MP #### [facility] [address] [place] [address] Dr. Grace Abdul Neutrophils/100 WBC (Bld) 73.5 % Normal 43.0-75.0 [facility] Comment on above: Performed By: #### B MP #### [facility] [address] [place] [address] Dr. Grace Abdul Platelet mean volume (Bld) [Entitic vol] 9.3 fL Critically low 9.5-13.5 [facility] Comment on above: Performed By: #### B MP #### [facility] [address] [place] [address] Dr. Grace Abdul PLT 292 103/ul Normal 150-450 [facility] Comment on above: Performed By: #### B MP #### [facility] [address] [address] [address] Grace Abdul RBC 3.75 106/ul Critically low 4.20-5.40 [facility] Comment on above: Performed By: #### B MP #### [facility] [address] [address] [address] Grace Abdul WBC 6.1 103/ul Normal 4.0-11.0 [facility] Comment on above: Performed By: #### B MP #### [facility] [address] [address] [address] Grace Abdul CULTURE URINEon 11-16-2021 CULTURE URINE Culture Observations : LIGHT GROWTH OF MIXED GENITAL ALANIS. NO POTENTIAL PATHOGENS SEEN. Normal [facility] Comment on above: Performed By: #### U RCX ####[facility] [id number] [address]. Grace Abdul ER URINE PROFILEon Bilirubin Ql (U) Negative Normal NEGATIVE [facility] Comment on above: Performed By: #### C VDTBH #### [facility] [address] [address] [address] Grace Abdul Clarity (U) CLEAR Normal CLEAR [facility] Comment on above: Performed By: #### C VDTBH #### [facility] [address] [address] [address] Grace Abdul Color (U) LT. YELLOW Normal YELLOW [facility] Comment on above: Performed By: #### C VDTBH #### [facility] [address] [address] [address] Grace Abdul ERUAHD A micrscopic examination will be performed if indicated. Normal [facility] Comment on above: Performed By: #### C VDTBH #### [facility] [address] [address] [address] Grace Abdul Glucose Ql (U) Negative Normal NEGATIVE [facility] Comment on above: Performed By: #### C VDTBH #### [facility] [address] [place] [address] Dr. Grace Abdul Hemoglobin Ql (U) SMALL Abnormal NEGATIVE [facility] Comment on above: Performed By: #### C VDTBH #### [facility] [address] [place] [address] Dr. Grace Abdul Ketones Ql (U) 40 mg/dl Abnormal NEGATIVE [facility] Comment on above: Performed By: #### C VDTBH #### [facility] [address] [place] [address] Dr. Grace Abdul LEUKOCYTES SMALL Abnormal NEGATIVE [facility] Comment on above: Performed By: #### C VDTBH #### [facility] [address] [place] [address] Dr. Grace Abdul Nitrite Ql (U) Negative Normal NEGATIVE [facility] Comment on above: Performed By: #### C VDTBH #### [facility] [address] [place] [address] Dr. Grace Abdul pH (U) 7.0 [pH] Normal 5-9 [facility] Comment on above: Performed By: #### C VDTBH #### [facility] [address] [place] [address] Dr. Grace Abdul SPEC GRAVITY 1.010 Normal 1.005-<=1.025 [facility] Comment on above: Performed By: #### C VDTBH #### [facility] [address] [place] [address] Dr. Grace Abdul UA PROTEIN Negative Normal NEGATIVE/ TRACE [facility] Comment on above: Performed By: #### C VDTBH #### [facility] [address] [place] [address] Dr. Grace Abdul UR MICRO IND INDICATED Normal [facility] Comment on above: Performed By: #### C VDTBH #### [facility] [address] [place] [address] Dr. Grace Abdul Urobilinogen Qn (U) 0.2 {Ashley'U}/dL Normal 0.2 - 1. 0 [facility] Comment on above: Performed By: #### C VDTBH #### [facility] [address] [place] [address] Dr. Grace Abdul MAGNESIUMon 11-16-2021 Magnesium [Mass/Vol] 1.8 mg/dL Normal 1.8-2.4 [facility] Comment on above: Performed By: #### C VDTBH #### [facility] [address] [place] [address] Dr. Grace Abdul PROF CHEM 8 (BAS METB)on Anion gap [Moles/Vol] 12.7 mmol/L Normal [facility] Comment on above: Performed By: #### B MP #### [facility] [address] [place] [address] Dr. Grace Abdul Calcium [Mass/Vol] 8.3 mg/dL Critically low 8.5-10.1 [facility] Comment on above: Performed By: #### B MP #### [facility] [address] [place] [address] Dr. Grace Abdul CO2 [Moles/Vol] 24.4 mmol/L Normal 21.0-32.[address] [facility] Comment on above: Performed By: #### B MP #### [facility] [address] [place] [address] Dr. Grace Abdul Creatinine [Mass/Vol] 1.16 mg/dL Critically high 0.55-1.02 [facility] Comment on above: Performed By: #### B MP #### [facility] [address] [place] [address] Dr. Grace Abdul EGFR-AF AUSTRALIAN 54 mL/min/1.73m2 Critically low >=60 [facility] Comment on above: Performed By: #### B MP #### [facility] [address] [place] [address] Dr. Grace Abdul EGFR-NON AF AUSTRALIAN 45 mL/min/1.73m2 Critically low >=60 [facility] Comment on above: Performed By: #### B MP #### [facility] [address] [place] [address] Dr. Grace Abdul Glucose [Mass/Vol] 116 mg/dL Critically high 74-106 [facility] Comment on above: Performed By: #### B MP #### [facility] [address] [address] [address] Grace Abdul Urea nitrogen [Mass/Vol] 20.0 mg/dL Critically high 7.0-18.0 [facility] Comment on above: Performed By: #### B MP #### [facility] [address] [address] [address] Grace Abdul Urea nitrogen/Creatinine [Mass ratio] 17.2 mg/mg Normal [facility] Comment on above: Performed By: #### B MP #### [facility] [address] [address] [address] Grace Abdul Anion gap [Moles/Vol] 10.0 mmol/L Normal [facility] Comment on above: Performed By: #### B MP #### [facility] [address] [address] [address] Grace Abdul Calcium [Mass/Vol] 8.8 mg/dL Normal 8.5-10.1 [facility] Comment on above: Performed By: #### B MP #### [facility] [address] [address] [address] Grace Abdul Chloride [Moles/Vol] 96 mmol/L Critically low 98-107 [facility] Comment on above: Performed By: #### B MP #### [facility] [address] [address] [address] Grace Abdul CO2 [Moles/Vol] 26.1 mmol/L Normal 21.0-32.[address] [facility] Comment on above: Performed By: #### B MP #### [facility] [address] [address] [address] Grace Abdul Creatinine [Mass/Vol] 1.11 mg/dL Critically high 0.55-1.02 [facility] Comment on above: Performed By: #### B MP #### [facility] [address] [address] [address] Grace Abdul EGFR-AF AUSTRALIAN 57 mL/min/1.73m2 Critically low >=60 [facility] Comment on above: Performed By: #### B MP #### [facility] [address] [address] [address] Grace Abdul EGFR-NON AF AUSTRALIAN 47 mL/min/1.73m2 Critically low >=60 [facility] Comment on above: Performed By: #### B MP #### [facility] [address] [address] [address] Grace Abdul Glucose [Mass/Vol] 94 mg/dL Normal 74-106 [facility] Comment on above: Performed By: #### B MP #### [facility] [address] [address] [address] Grace Abdul Potassium [Moles/Vol] 3.1 mmol/L Critically low 3.5-5.1 [facility] Comment on above: Performed By: #### B MP #### [facility] [address] [address] [address] Grace Abdul Performed By: #### C VDTBH #### [facility] [address] [place] [address] Dr. Grace Abdul Sodium [Moles/Vol] 129 mmol/L Critically low 136-145 [facility] Comment on above: Performed By: #### B MP #### [facility] [address] [place] [address] Dr. Grace Abdul Urea nitrogen [Mass/Vol] 16.0 mg/dL Normal 7.0-18.0 [facility] Comment on above: Performed By: #### B MP #### [facility] [address] [address] [address] Grace Abdul Urea nitrogen/Creatinine [Mass ratio] 14.4 mg/mg Normal [facility] Comment on above: Performed By: #### B MP #### [facility] [address] [address] [address] Grace Abdul Anion gap [Moles/Vol] 12.6 mmol/L Normal [facility] Comment on above: Performed By: #### C VDTBH #### [facility] [address] [address] [address] Grace Abdul Calcium [Mass/Vol] 8.6 mg/dL Normal 8.5-10.1 [facility] Comment on above: Performed By: #### C VDTBH #### [facility] [address] [place] [address] Dr. Grace Abdul Chloride [Moles/Vol] 95 mmol/L Critically low 98-107 [facility] Comment on above: Performed By: #### B MP #### [facility] [address] [address] [address] Grace Abdul Performed By: #### C VDTBH #### [facility] [address] [place] [address] Dr. Grace Abdul CO2 [Moles/Vol] 22.5 mmol/L Normal 21.0-32.[address] [facility] Comment on above: Performed By: #### C VDTBH #### [facility] [address] [place] [address] Dr. Grace Abdul Creatinine [Mass/Vol] 0.95 mg/dL Normal 0.55-1.02 [facility] Comment on above: Performed By: #### C VDTBH #### [facility] [address] [place] [address] Dr. Grace Abdul EGFR-AF AUSTRALIAN >60 Normal >=[address] [facility] Comment on above: Performed By: #### C VDTBH #### [facility] [address] [place] [address] Dr. Grace Abdul EGFR-NON AF AUSTRALIAN 56 mL/min/1.73m2 Critically low >=60 [facility] Comment on above: Performed By: #### C VDTBH #### [facility] [address] [address] [address] Grace Abdul Glucose [Mass/Vol] 92 mg/dL Normal 74-106 [facility] Comment on above: Performed By: #### C VDTBH #### [facility] [address] [place] [address] Dr. Grace Abdul Sodium [Moles/Vol] 127 mmol/L Critically low 136-145 [facility] Comment on above: Performed By: #### C VDTBH #### [facility] [address] [place] [address] Dr. Grace Abdul Urea nitrogen [Mass/Vol] 18.0 mg/dL Normal 7.0-18.0 [facility] Comment on above: Performed By: #### C VDTBH #### [facility] [address] [place] [address] Dr. Grace Abdul Urea nitrogen/Creatinine [Mass ratio] 18.9 mg/mg Normal [facility] Comment on above: Performed By: #### C VDTBH #### [facility] [address] [place] [address] Dr. Grace Abdul URINE MICROSCOPIC ONLYon BACTERIA TRACE Abnormal NONE SEEN [facility] Comment on above: Performed By: #### C VDTBH #### [facility] [address] [place] [address] Dr. Grace Abdul Bacteria identified Cx Nom (U) INDICATED Normal [facility] Comment on above: Performed By: #### C VDTBH #### [facility] [address] [place] [address] Dr. Grace Abdul CAST NONE SEEN Normal NONE SEEN [facility] Comment on above: Performed By: #### C VDTBH #### [facility] [address] [place] [address] Dr. Grace Abdul Crystals LM Nom (Urine sed) NONE SEEN Normal NONE SEEN [facility] Comment on above: Performed By: #### C VDTBH #### [facility] [address] [place] [address] Dr. Grace Abdul Epithelial cells LM Ql (Urine sed) FEW Abnormal NONE SEEN /RARE [facility] Comment on above: Performed By: #### C VDTBH #### [facility] [address] [place] [address] Dr. Grace Abdul MUCOUS NONE SEEN Normal NONE SEEN [facility] Comment on above: Performed By: #### C VDTBH #### [facility] [address] [place] [address] Dr. Grace Abdul RBC 2-5 Abnormal 0-2 [facility] Comment on above: Performed By: #### C VDTBH #### [facility] [address] [place] [address] Dr. Grace Abdul WBC 5-10 Abnormal NONE SEEN [facility] Comment on above: Performed By: #### C VDTBH #### [facility] [address] [place] [address] Dr. Grace Abdul AMYLASEon 11-15-2021 Amylase [Catalytic activity/Vol] 94 U/L Normal 25-115 [facility] Comment on above: Performed By: #### C VDTBH #### [facility] [address] [place] [address] Dr. Grace Abdul BNPon 11-15-2021 Natriuretic peptide B (Bld) [Mass/Vol] 357.0 pg/mL Normal <=1,800.0 [facility] Comment on above: Performed By: #### C VDTBH #### [facility] [address] [place] [address] Dr. Grace Abdul CARDIAC JOVITA ADMITon 022 CK [Catalytic activity/Vol] 66 U/L Normal 26-192 [facility] Comment on above: Performed By: #### C VDTBH #### [facility] [address] [place] [address] Dr. Grace Abdul CK.MB [Mass/Vol] 2.19 ng/mL Normal <=3.60 [facility] Comment on above: Performed By: #### C VDTBH #### [facility] [address] [place] [address] Dr. Grace Abdul HSTROP 9.5 pg/mL Normal 4.0-51.3 [facility] Comment on above: Result Comment: CUT- OFF POINTS HAVE BEEN ESTABLISHED BASED ON THE FOURTH UNIVERSAL DEFINITIONS OF MYOCARDIAL INFARCTION. THE UPPER REFERENCE LIMIT (URL) OF TROPONIN, DEFINED THE 99TH PERCENTILE OF cTnI DISTRIBUTION IN A REFERENCE POPULATION, HAS BEEN CONFIRMED THE DECISION THRESHOLD FOR ID DIAGNOSIS. Performed By: #### C VDTBH #### [facility] [address] [place] [address] Dr. Grace Abdul JOHNNA 73 ng/mL Normal 9-82 [facility] Comment on above: Performed By: #### C VDTB #### [facility] [address] [place] [address] Dr. Grace Abdul CBC AUTO DIFFon 11-15-2021 BASO # 0.0 103/ul Normal 0.0-0.1 [facility] Comment on above: Performed By: #### B MP #### [facility] [address] [place] [address] Dr. Grace Abdul Basophils/100 WBC (Bld) 0.1 % Critically low 0.2-2.0 [facility] Comment on above: Performed By: #### B MP #### [facility] [address] [place] [address] Dr. Grace Abdul EO # 0.0 103/ul Normal 0.0-0.7 [facility] Comment on above: Performed By: #### B MP #### [facility] [address] [place] [address] Dr. Grace Abdul Eosinophils/100 WBC (Bld) 0.1 % Critically low 0.9-7.0 [facility] Comment on above: Performed By: #### B MP #### [facility] [address] [place] [address] Dr. Grace Abdul Erythrocyte distribution width (RBC) [Ratio] 11.9 % Normal 11.0-15.0 [facility] Comment on above: Performed By: #### B MP #### [facility] [address] [place] [address] Dr. Grace Abdul Hematocrit (Bld) [Volume fraction] 36.6 % Normal 36.0-48.0 [facility] Comment on above: Performed By: #### B MP #### [facility] [address] [place] [address] Dr. Grace Abdul Hemoglobin (Bld) [Mass/Vol] 13.2 g/dL Normal 12.0-16.0 [facility] Comment on above: Performed By: #### B MP #### [facility] [address] [place] [address] Dr. Grace Abdul IG # 0.05 10e3/ul Critically high 0.00-0.03 [facility] Comment on above: Performed By: #### B MP #### [facility] [address] [place] [address] Dr. Grace Abdul IG % 0.7 % Critically high 0.0-0.5 [facility] Comment on above: Performed By: #### B MP #### [facility] [address] [address] [address] Grace Abdul LYMPH # 0.7 103/ul Critically low 1.2-3.8 [facility] Comment on above: Performed By: #### B MP #### [facility] [address] [place] [address] Dr. Grace Abdul Lymphocytes/100 WBC (Bld) 9.8 % Critically low 20.5-60.0 [facility] Comment on above: Performed By: #### B MP #### [facility] [address] [place] [address] Dr. Grace Abdul MANUAL DIFF REQ NO Normal [facility] Comment on above: Performed By: #### B MP #### [facility] [address] [place] [address] Dr. Grace Abdul MCH (RBC) [Entitic mass] 31.5 pg Normal 26.7-34.0 [facility] Comment on above: Performed By: #### B MP #### [facility] [address] [place] [address] Dr. Grace Abdul MCHC (RBC) [Mass/Vol] 36.1 g/dL Critically high 29.9-35.2 [facility] Comment on above: Performed By: #### B MP #### [facility] [address] [place] [address] Dr. Grace Abdul MCV (RBC) [Entitic vol] 87.4 fL Normal 81.0-99.0 [facility] Comment on above: Performed By: #### B MP #### [facility] [address] [place] [address] Dr. Grace Abdul MONO # 0.9 103/ul Critically high 0.3-0.8 [facility] Comment on above: Performed By: #### B MP #### [facility] [address] [place] [address] Dr. Grace Abdul Monocytes/100 WBC (Bld) 12.4 % Critically high 1.7-12.0 [facility] Comment on above: Performed By: #### B MP #### [facility] [address] [place] [address] Dr. Grace Abdul NEUT # 5.8 103/ul Normal 1.4-6.5 [facility] Comment on above: Performed By: #### B MP #### [facility] [address] [place] [address] Dr. Grace Abdul Neutrophils/100 WBC (Bld) 76.9 % Critically high 43.0-75.0 [facility] Comment on above: Performed By: #### B MP #### [facility] [address] [place] [address] Dr. Grace Abdul Platelet mean volume (Bld) [Entitic vol] 9.0 fL Critically low 9.5-13.5 [facility] Comment on above: Performed By: #### B MP #### [facility] [address] [place] [address] Dr. Grace Abdul PLT 361 103/ul Normal 150-450 [facility] Comment on above: Performed By: #### B MP #### [facility] [address] [place] [address] Dr. Grace Abdul RBC 4.19 106/ul Critically low 4.20-5.40 [facility] Comment on above: Performed By: #### B MP #### [facility] [address] [place] [address] Dr. Grace Abdul WBC 7.6 103/ul Normal 4.0-11.0 [facility] Comment on above: Performed By: #### B MP #### [facility] [address] [place] [address] Dr. Grace Abdul [facility]on 10[facility]23 SARS-CoV-2 (COVID-19) RNA LUISITO+probe Ql (Unsp spec) Not detected Normal NOT DETECTED [facility] Comment on above: Result Comment: When [...] for this test is supported by the [place] of Health and Human Service's declaration that [...] used). Performed By: #### C VDTBH #### [facility] [address] [place] [address] Dr. Grace Abdul LIPASEon 11-15-2021 Lipase [Catalytic activity/Vol] 178.0 U/L Normal 73.0-393.0 [facility] Comment on above: Performed By: #### C VDTBH #### [facility] [address] [place] [address] Dr. Grace Abdul PROF 14(COMP METB)on 022 Albumin [Mass/Vol] 4.1 g/dL Normal 3.4-5.0 [facility] Comment on above: Performed By: #### C VDTBH #### [facility] [address] [place] [address] Dr. Grace Abdul Albumin/Globulin [Mass ratio] 1.2 {ratio} Normal [facility] Comment on above: Performed By: #### C VDTBH #### [facility] [address] [place] [address] Dr. Grace Abdul ALP [Catalytic activity/Vol] 63 U/L Normal 46-116 [facility] Comment on above: Performed By: #### C VDTBH #### [facility] [address] [address] [address] Grace Abdul ALT [Catalytic activity/Vol] 29 U/L Normal 14-59 [facility] Comment on above: Performed By: #### C VDTBH #### [facility] [address] [address] [address] Grace Abdul Anion gap [Moles/Vol] 14.8 mmol/L Normal [facility] Comment on above: Performed By: #### C VDTBH #### [facility] [address] [address] [address] Grace Abdul AST [Catalytic activity/Vol] 25 U/L Normal 15-37 [facility] Comment on above: Performed By: #### C VDTBH #### [facility] [address] [address] [address] Grace Abdul Bilirubin [Mass/Vol] 0.6 mg/dL Normal 0.2-1.0 [facility] Comment on above: Performed By: #### C VDTBH #### [facility] [address] [address] [address] Grace Abdul Calcium [Mass/Vol] 9.4 mg/dL Normal 8.5-10.1 [facility] Comment on above: Performed By: #### C VDTBH #### [facility] [address] [address] [address] Grace Abdul Chloride [Moles/Vol] 83 mmol/L Critically low 98-107 [facility] Comment on above: Performed By: #### C VDTBH #### [facility] [address] [address] [address] Grace Abdul CO2 [Moles/Vol] 24.4 mmol/L Normal 21.0-32.0 [facility] Comment on above: Performed By: #### C VDTBH #### [facility] [address] [address] [address] Grace Abdul Creatinine [Mass/Vol] 1.15 mg/dL Critically high 0.55-1.02 [facility] Comment on above: Performed By: #### C VDTBH #### [facility] [address] [address] [address] Grace Abdul EGFR-AF AUSTRALIAN 55 mL/min/1.73m2 Critically low >=60 [facility] Comment on above: Performed By: #### C VDTBH #### [facility] [address] [address] [address] Grace Abdul EGFR-NON AF AUSTR[place]IAN 45 mL/min/1.73m2 Critically low >=60 [facility] Comment on above: Performed By: #### C VDTBH #### [facility] [address] [address] [address] Grace Abdul Globulin (S) [Mass/Vol] 3.4 g/dL Normal [facility] Comment on above: Performed By: #### C VDTBH #### [facility] [address] [address] [address] Grace Abdul Glucose [Mass/Vol] 147 mg/dL Critically high 74-106 [facility] Comment on above: Performed By: #### C VDTBH #### [facility] [address] [address] [address] Grace Abdul Potassium [Moles/Vol] 3.2 mmol/L Critically low 3.5-5.1 [facility] Comment on above: Performed By: #### C VDTBH #### [facility] [address] [address] [address] Grace Abdul Protein [Mass/Vol] 7.5 g/dL Normal 6.4-8.2 [facility] Comment on above: Performed By: #### C VDTBH #### [facility] [address] [address] [address] Grace Abdul Urea nitrogen/Creatinine [Mass ratio] 21.7 mg/mg Normal [facility] Comment on above: Performed By: #### C VDTBH #### [facility] [address] [address] [address] Grace Abdul PROF CHEM 8 (BAS METB)on Anion gap [Moles/Vol] 13.6 mmol/L Normal [facility] Comment on above: Performed By: #### C VDTBH #### [facility] [address] [place] [address] Dr. Grace Abdul Calcium [Mass/Vol] 8.8 mg/dL Normal 8.5-10.1 [facility] Comment on above: Performed By: #### C VDTBH #### [facility] [address] [place] [address] Dr. Grace Abdul Chloride [Moles/Vol] 88 mmol/L Critically low 98-107 [facility] Comment on above: Performed By: #### C VDTBH #### [facility] [address] [place] [address] Dr. Grace Abdul CO2 [Moles/Vol] 21.8 mmol/L Normal 21.0-32.[address] [facility] Comment on above: Performed By: #### C VDTBH #### [facility] [address] [place] [address] Dr. Grace Abdul Creatinine [Mass/Vol] 1.11 mg/dL Critically high 0.55-1.02 [facility] Comment on above: Performed By: #### C VDTBH #### [facility] [address] [place] [address] Dr. Grace Abdul EGFR-AF AUSTRALIAN 57 mL/min/1.73m2 Critically low >=60 [facility] Comment on above: Performed By: #### C VDTBH #### [facility] [address] [place] [address] Dr. Grace Abdul EGFR-NON AF AUSTRALIAN 47 mL/min/1.73m2 Critically low >=60 [facility] Comment on above: Performed By: #### C VDTBH #### [facility] [address] [place] [address] Dr. Grace Abdul Glucose [Mass/Vol] 132 mg/dL Critically high 74-106 [facility] Comment on above: Performed By: #### C VDTBH #### [facility] [address] [place] [address] Dr. Grace Abdul Potassium [Moles/Vol] 3.4 mmol/L Critically low 3.5-5.1 [facility] Comment on above: Performed By: #### C VDTBH #### [facility] [address] [place] [address] Dr. Grace Abdul Sodium [Moles/Vol] 120 mmol/L Critically low 136-145 [facility] Comment on above: Result Comment: Test Repeated. Critical Value Verified Performed By: #### C VDTBH #### [facility] [address] [place] [address] Dr. Grace Abdul Urea nitrogen [Mass/Vol] 25.0 mg/dL Critically high 7.0-18.0 [facility] Comment on above: Performed By: #### C VDTBH #### [facility] [address] [place] [address] Dr. Grace Abdul Urea nitrogen/Creatinine [Mass ratio] 22.5 mg/mg Normal [facility] Comment on above: Performed By: #### C VDTBH #### [facility] [address] [place] [address] Dr. Grace Abdul PROTIMEon 11-15-2021 INR Coag (PPP) [Relative time] 0.94 {INR} Normal [facility] Comment on above: Performed By: #### C VDTBH #### [facility] [address] [place] [address] Dr. Grace Abdul INR GUIDELINES SEE BELOW Normal [facility] [place] [facility] Comment on above: Result Comment: DURAN RED INR: 2.0 - 3.0 CONDITIONS NOT LISTED BELOW 2.5 - 3.5 FOR PROSTHETIC HEART VALVE REPLACEMENT 2.5 - 3.5 RECURRENT THROMBOSIS Performed By: #### C VDTBH #### [facility] [address] [place] [address] Dr. Grace Abdul PT Coag (PPP) [Time] 10.2 s Normal 9.0-11.6 [facility] Comment on above: Performed By: #### C VDTBH #### [facility] [address] [place] [address] Dr. Grace Abdul XR ABD FLAT UP_PA [...] JARET LINARES Date: 2021-11-15 13:56 Normal [facility] BNPon 11-11-2021 Natriuretic peptide B (Bld) [Mass/Vol] 546.0 pg/mL Normal <=1,800.0 [facility] Comment on above: Performed By: #### C MP, TSH, HSTROPN, BNP ####[facility] [id number] [address]Dr. Grace Abdul CBC AUTO DIFFon 11-11-2021 BASO # 0.0 103/ul Normal 0.0-0.1 [facility] Comment on above: Performed By: #### C BC #### [facility] [address] [address] [address] Grace Abdul Basophils/100 WBC (Bld) 0.3 % Normal 0.2-2.0 [facility] Comment on above: Performed By: #### C BC #### [facility] [address] [address] [address] Grace Abdul EO # 0.0 103/ul Normal 0.0-0.7 [facility] Comment on above: Performed By: #### C BC #### [facility] [address] [address] [address] Grace Abdul Eosinophils/100 WBC (Bld) 0.5 % Critically low 0.9-7.0 [facility] Comment on above: Performed By: #### C BC #### [facility] [address] [place] [address] Dr. Grace Abdul Erythrocyte distribution width (RBC) [Ratio] 12.9 % Normal 11.0-15.0 [facility] Comment on above: Performed By: #### C BC #### [facility] [address] [place] [address] Dr. Grace Abdul Hematocrit (Bld) [Volume fraction] 36.1 % Normal 36.0-48.0 [facility] Comment on above: Performed By: #### C BC #### [facility] [address] [place] [address] Dr. Grace Abdul Hemoglobin (Bld) [Mass/Vol] 12.3 g/dL Normal 12.0-16.0 [facility] Comment on above: Performed By: #### C BC #### [facility] [address] [place] [address] Dr. Grace Abdul IG # 0.01 10e3/ul Normal 0.00-0.03 [facility] Comment on above: Performed By: #### C BC #### [facility] [address] [place] [address] Dr. Grace Abdul IG % 0.3 % Normal 0.0-0.5 [facility] Comment on above: Performed By: #### C BC #### [facility] [address] [place] [address] Dr. Grace Abdul LYMPH # 0.6 103/ul Critically low 1.2-3.8 [facility] [place] [facility] Comment on above: Performed By: #### C BC #### [facility] [address] [place] [address] Dr. Grace Abdul Lymphocytes/100 WBC (Bld) 14.8 % Critically low 20.5-60.0 [facility] Comment on above: Performed By: #### C BC #### [facility] [address] [place] [address] Dr. Grace Abdul MANUAL DIFF REQ NO Normal [facility] Comment on above: Performed By: #### C BC #### [facility] [address] [place] [address] Dr. Grace Abdul MCH (RBC) [Entitic mass] 31.5 pg Normal 26.7-34.0 [facility] Comment on above: Performed By: #### C BC #### [facility] [address] [place] [address] Dr. Grace Abdul MCHC (RBC) [Mass/Vol] 34.1 g/dL Normal 29.9-35.2 [facility] Comment on above: Performed By: #### C BC #### [facility] [address] [place] [address] Dr. Grace Abdul MCV (RBC) [Entitic vol] 92.6 fL Normal 81.0-99.0 [facility] Comment on above: Performed By: #### C BC #### [facility] [address] [place] [address] Dr. Grace Abdul MONO # 0.5 103/ul Normal 0.3-0.8 [facility] Comment on above: Performed By: #### C BC #### [facility] [address] [place] [address] Dr. Grace Abdul Monocytes/100 WBC (Bld) 13.5 % Critically high 1.7-12.0 [facility] Comment on above: Performed By: #### C BC #### [facility] [address] [place] [address] Dr. Grace Abdul NEUT # 2.7 103/ul Normal 1.4-6.5 [facility] Comment on above: Performed By: #### C BC #### [facility] [address] [place] [address] Dr. Grace Abdul Neutrophils/100 WBC (Bld) 70.6 % Normal 43.0-75.0 [facility] Comment on above: Performed By: #### C BC #### [facility] [address] [place] [address] Dr. Grace Abdul Platelet mean volume (Bld) [Entitic vol] 9.2 fL Critically low 9.5-13.5 [facility] Comment on above: Performed By: #### C BC #### [facility] [address] [place] [address] Dr. Grace Abdul PLT 279 103/ul Normal 150-450 [facility] Comment on above: Performed By: #### C BC #### [facility] [address] [place] [address] Dr. Grace Abdul RBC 3.90 106/ul Critically low 4.20-5.40 [facility] Comment on above: Performed By: #### C BC #### [facility] [address] [place] [address] Dr. Grace Abdul WBC 3.9 103/ul Critically low 4.0-11.0 [facility] Comment on above: Performed By: #### C BC #### [facility] [address] [place] [address] Dr. Grace Abdul PROF 14(COMP METB)on 022 Albumin [Mass/Vol] 3.3 g/dL Critically low 3.4-5.0 [facility] Comment on above: Performed By: #### C MP, TSH, HSTROPN, BNP #### [facility] [address] [place] [address] Dr. Grace Abdul Albumin/Globulin [Mass ratio] 1.2 {ratio} [facility] Comment on above: Performed By: #### C MP, TSH, HSTROPN, BNP #### [facility] [address] [place] [address] Dr. Grace Abdul ALP [Catalytic activity/Vol] 60 U/L Normal 46-116 [facility] Comment on above: Performed By: #### C MP, TSH, HSTROPN, BNP #### [facility] [address] [place] [address] Dr. Grace Abdul ALT [Catalytic activity/Vol] 26 U/L Normal 14-59 [facility] Comment on above: Performed By: #### C MP, TSH, HSTROPN, BNP #### [facility] [address] [place] [address] Dr. Grace Abdul Anion gap [Moles/Vol] 14.8 mmol/L Normal [facility] Comment on above: Performed By: #### C MP, TSH, HSTROPN, BNP #### [facility] [address] [place] [address] Dr. Grace Abdul AST [Catalytic activity/Vol] 20 U/L Normal 15-37 [facility] Comment on above: Performed By: #### C MP, TSH, HSTROPN, BNP #### [facility] [address] [place] [address] Dr. Grace Abdul Bilirubin [Mass/Vol] 0.3 mg/dL Normal 0.2-1.0 [facility] Comment on above: Performed By: #### C MP, TSH, HSTROPN, BNP #### [facility] [address] [place] [address] Dr. Grace Abdul Calcium [Mass/Vol] 8.2 mg/dL Critically low 8.5-10.1 Th e [facility] Comment on above: Performed By: #### C MP, TSH, HSTROPN, BNP #### [facility] [address] [place] [address] Dr. Grace Abdul Chloride [Moles/Vol] 100 mmol/L Normal 98-107 [facility] Comment on above: Performed By: #### C MP, TSH, HSTROPN, BNP #### [facility] [address] [place] [address] Dr. Grace Abdul CO2 [Moles/Vol] 23.8 mmol/L Normal 21.0-32.0 [facility] Comment on above: Performed By: #### C MP, TSH, HSTROPN, BNP #### [facility] [address] [place] [address] Dr. Grace Abdul Creatinine [Mass/Vol] 1.27 mg/dL Critically high 0.55-1.02 [facility] Comment on above: Performed By: #### C MP, TSH, HSTROPN, BNP #### [facility] [address] [place] [address] Dr. Grace Abdul EGFR-AF AUSTRALIAN 49 mL/min/1.73m2 Critically low >=60 [facility] Comment on above: Performed By: #### C MP, TSH, HSTROPN, BNP #### [facility] [address] [place] [address] Dr. Grace Abdul EGFR-NON AF AUSTRALIAN 40 mL/min/1.73m2 Critically low >=60 [facility] Comment on above: Performed By: #### C MP, TSH, HSTROPN, BNP #### [facility] [address] [place] [address] Dr. Grace Abdul Globulin (S) [Mass/Vol] 2.7 g/dL Normal [facility] Comment on above: Performed By: #### C MP, TSH, HSTROPN, BNP #### [facility] [address] [place] [address] Dr. Grace Abdul Glucose [Mass/Vol] 116 mg/dL Critically high 74-106 [facility] Comment on above: Performed By: #### C MP, TSH, HSTROPN, BNP #### [facility] [address] [place] [address] Dr. Grace Abdul Potassium [Moles/Vol] 3.6 mmol/L Normal 3.5-5.1 [facility] Comment on above: Performed By: #### C MP, TSH, HSTROPN, BNP #### [facility] [address] [place] [address] Dr. Grace Abdul Protein [Mass/Vol] 6.0 g/dL Critically low 6.4-8.2 [facility] Comment on above: Performed By: #### C MP, TSH, HSTROPN, BNP #### [facility] [address] [place] [address] Dr. Grace Abdul Sodium [Moles/Vol] 135 mmol/L Critically low 136-145 [facility] Comment on above: Performed By: #### C MP, TSH, HSTROPN, BNP #### [facility] [address] [place] [address] Dr. Grace Abdul Urea nitrogen [Mass/Vol] 25.0 mg/dL Critically high 7.0-18.0 [facility] Comment on above: Performed By: #### C MP, TSH, HSTROPN, BNP #### [facility] [address] [place] [address] Dr. Grace Abdul Urea nitrogen/Creatinine [Mass ratio] 19.7 mg/mg Normal [facility] Comment on above: Performed By: #### C MP, TSH, HSTROPN, BNP #### [facility] [address] [place] [address] Dr. Grace Abdul PROTIMEon 11-11-2021 INR Coag (PPP) [Relative time] 0.95 {INR} Normal [facility] Comment on above: Performed By: #### B MP #### [facility] [address] [place] [address] Dr. Grace Abdul INR GUIDELINES SEE BELOW Normal [facility] [place] [facility] Comment on above: Result Comment: DURAN RED INR: 2.0 - 3.0 CONDITIONS NOT LISTED BELOW 2.5 - 3.5 FOR PROSTHETIC HEART VALVE REPLACEMENT 2.5 - 3.5 RECURRENT THROMBOSIS Performed By: #### B MP #### [facility] [address] [place] [address] Dr. Grace Abdul PT Coag (PPP) [Time] 10.3 s Normal 9.0-11.6 [facility] Comment on above: Performed By: #### B MP #### [facility] [address] [place] [address] Dr. Grace Abdul PTTon 11-11-2021 aPTT Coag (Bld) [Time] 21.3 s Critically low 22.3-36.2 [facility] Comment on above: Performed By: #### B MP #### [facility] [address] [place] [address] Dr. Grace Abdul TROPONIN, HIGH SENSITIVITYon 11-11-2021 HSTROP 6.5 pg/mL Normal 4.0-51.3 [facility] Comment on above: Result Comment: CUT- OFF POINTS HAVE BEEN ESTABLISHED BASED ON THE FOURTH UNIVERSAL DEFINITIONS OF MYOCARDIAL INFARCTION. THE UPPER REFERENCE LIMIT (URL) OF TROPONIN, DEFINED THE 99TH PERCENTILE OF cTnI DISTRIBUTION IN A REFERENCE POPULATION, HAS BEEN CONFIRMED THE DECISION THRESHOLD FOR ID DIAGNOSIS. Performed By: #### C MP, TSH, HSTROPN, BNP #### [facility] [address], [place] [address] Dr. Grace Abdul TSHon 11-11-2021 TSH 2.140 uIU/mL Normal 0.358-3.740 [facility] Comment on above: Performed By: #### C MP, TSH, HSTROPN, BNP ####[facility] [id number] [place], [place] [address]DiDr. Grace Abdul XR CHEST 1 Von 11-11-2021 [...] KRANTHI CONNORS Date: 2021-11-11 13:34 Normal [facility] CARDIAC JOVITA ADMITon 022 CK [Catalytic activity/Vol] 89 U/L Normal 26-192 [facility] Comment on above: Performed By: #### C VDTBH #### [facility] [address] [address] [address] Grace Abdul CK.MB [Mass/Vol] 1.92 ng/mL Normal <=3.60 [facility] Comment on above: Performed By: #### C VDTB #### [facility] [address] [address] [address] Grace Abdul HSTROP 5.7 pg/mL Normal 4.0-51.3 [facility] Comment on above: Result Comment: CUT- OFF POINTS HAVE BEEN ESTABLISHED BASED ON THE FOURTH UNIVERSAL DEFINITIONS OF MYOCARDIAL INFARCTION. THE UPPER REFERENCE LIMIT (URL) OF TROPONIN, DEFINED THE 99TH PERCENTILE OF cTnI DISTRIBUTION IN A REFERENCE POPULATION, HAS BEEN CONFIRMED THE DECISION THRESHOLD FOR ID DIAGNOSIS. Performed By: #### C VDTBH #### [facility] [address] [address] [address] Grace Abdul JOHNNA 86 ng/mL Critically high 9-82 [facility] Comment on above: Performed By: #### C VDTBH #### [facility] [address] [place] [address] Dr. Grace Abdul CBC AUTO DIFFon 09-13-2021 BASO # 0.0 103/ul Normal 0.0-0.1 [facility] Comment on above: Performed By: #### C VDTBH #### [facility] [address] [place] [address] Dr. Grace Abdul Basophils/100 WBC (Bld) 0.5 % Normal 0.2-2.0 [facility] Comment on above: Performed By: #### C VDTBH #### [facility] [address] [place] [address] Dr. Grace Abdul EO # 0.0 103/ul Normal 0.0-0.7 [facility] Comment on above: Performed By: #### C VDTBH #### [facility] [address] [place] [address] Dr. Grace Abdul Eosinophils/100 WBC (Bld) 0.7 % Critically low 0.9-7.0 [facility] Comment on above: Performed By: #### C VDTBH #### [facility] [address] [place] [address] Dr. Grace Abdul Erythrocyte distribution width (RBC) [Ratio] 13.2 % Normal 11.0-15.0 [facility] Comment on above: Performed By: #### C VDTBH #### [facility] [address] [place] [address] Dr. Grace Abdul Hematocrit (Bld) [Volume fraction] 34.8 % Critically low 36.0-48.0 [facility] Comment on above: Performed By: #### C VDTBH #### [facility] [address] [place] [address] Dr. Grace Abdul Hemoglobin (Bld) [Mass/Vol] 11.9 g/dL Critically low 12.0-16.0 [facility] Comment on above: Performed By: #### C VDTBH #### [facility] [address] [address] [address] Grace Abdul IG # 0.01 10e3/ul Normal 0.00-0.03 [facility] Comment on above: Performed By: #### C VDTBH #### [facility] [address] [place] [address] Dr. Grace Abdul IG % 0.2 % Normal 0.0-0.5 [facility] Comment on above: Performed By: #### C VDTBH #### [facility] [address] [place] [address] Dr. Grace Abdul LYMPH # 0.6 103/ul Critically low 1.2-3.8 [facility] Comment on above: Performed By: #### C VDTBH #### [facility] [address] [place] [address] Dr. Grace Abdul Lymphocytes/100 WBC (Bld) 14.2 % Critically low 20.5-60.0 [facility] Comment on above: Performed By: #### C VDTBH #### [facility] [address] [place] [address] Dr. Grace Abdul MANUAL DIFF REQ NO Normal [facility] Comment on above: Performed By: #### C VDTBH #### [facility] [address] [place] [address] Dr. Grace Abdul MCH (RBC) [Entitic mass] 31.5 pg Normal 26.7-34.0 [facility] Comment on above: Performed By: #### C VDTBH #### [facility] [address] [place] [address] Dr. Grace Abdul MCHC (RBC) [Mass/Vol] 34.2 g/dL Normal 29.9-35.2 [facility] Comment on above: Performed By: #### C VDTBH #### [facility] [address] [place] [address] Dr. Grace Abdul MCV (RBC) [Entitic vol] 92.1 fL Normal 81.0-99.0 [facility] Comment on above: Performed By: #### C VDTBH #### [facility] [address] [address] [address] Grace Abdul MONO # 0.7 103/ul Normal 0.3-0.8 [facility] Comment on above: Performed By: #### C VDTBH #### [facility] [address] [place] [address] Dr. Grace Abdul Monocytes/100 WBC (Bld) 15.6 % Critically high 1.7-12.0 [facility] Comment on above: Performed By: #### C VDTBH #### [facility] [address] [place] [address] Dr. Grace Abdul NEUT # 3.0 103/ul Normal 1.4-6.5 [facility] Comment on above: Performed By: #### C VDTBH #### [facility] [address] [place] [address] Dr. Grace Abdul Neutrophils/100 WBC (Bld) 68.8 % Normal 43.0-75.0 [facility] Comment on above: Performed By: #### C VDTBH #### [facility] [address] [place] [address] Dr. Grace Abdul Platelet mean volume (Bld) [Entitic vol] 9.5 fL Normal 9.5-13.5 [facility] Comment on above: Performed By: #### C VDTBH #### [facility] [address] [place] [address] Dr. Grace Abdul PLT 303 103/ul Normal 150-450 [facility] Comment on above: Performed By: #### C VDTBH #### [facility] [address] [place] [address] Dr. Grace Abdul RBC 3.78 106/ul Critically low 4.20-5.40 [facility] Comment on above: Performed By: #### C VDTBH #### [facility] [address] [place] [address] Dr. Grace Abdul WBC 4.4 103/ul Normal 4.0-11.0 [facility] Comment on above: Performed By: #### C VDTBH #### [facility] [address] HEAD WO CONon [...] KRANTHI CONNORS Date: 2021-09-13 13:24 Normal [facility]22 SARS-CoV-2 (COVID-19) RNA LUISITO+probe Ql (Unsp spec) Not detected Normal NOT DETECTED [facility] Comment on above: Result Comment: When [...] for this test is supported by the [place] of Health and Human Service's declaration that [...] used). Performed By: #### C VDTBH #### [facility] [address] [place] [address] Dr. Grace Abdul ER URINE PROFILEon 2 Bilirubin Ql (U) Negative Normal NEGATIVE [facility] Comment on above: Performed By: #### B MP #### [facility] [address] [place] [address] Dr. Grace Abdul Clarity (U) CLEAR Normal CLEAR [facility] Comment on above: Performed By: #### B MP #### [facility] [address] [place] [address] Dr. Grace Abdul Color (U) LT. YELLOW Normal YELLOW [facility] Comment on above: Performed By: #### B MP #### [facility] [address] [place] [place] [address] Dr. Grace HIGGINS A micrscopic examination will be performed if indicated. Normal [facility] Comment on above: Performed By: #### B MP #### [facility] [address] [place] [address] Dr. Grace Abdul Glucose Ql (U) Negative Normal NEGATIVE [facility] Comment on above: Performed By: #### B MP #### [facility] [address] [place] [address] Dr. Grace Abdul Hemoglobin Ql (U) Negative Normal NEGATIVE [facility] Comment on above: Performed By: #### B MP #### [facility] [address] [place] [address] Dr. Grace Abdul Ketones Ql (U) TRACE Abnormal NEGATIVE [facility] Comment on above: Performed By: #### B MP #### [facility] [address] [place] [address] Dr. Grace Abdul LEUKOCYTES TRACE Abnormal NEGATIVE [facility] Comment on above: Performed By: #### B MP #### [facility] [address] [place] [address] Dr. Grace Abdul Nitrite Ql (U) Negative Normal NEGATIVE [facility] Comment on above: Performed By: #### B MP #### [facility] [address] [place] [address] Dr. Grace Abdul pH (U) 8.0 [pH] Normal 5-9 [facility] Comment on above: Performed By: #### B MP #### [facility] [address] [place] [address] Dr. Grace Abdul SPEC GRAVITY 1.015 Normal 1.005-<=1.025 [facility] Comment on above: Performed By: #### B MP #### [facility] [address] [place] [address] Dr. Grace Abdul UA PROTEIN Negative Normal NEGATIVE/ TRACE [facility] Comment on above: Performed By: #### B MP #### [facility] [address] [place] [address] Dr. Grace Abdul UR MICRO IND INDICATED Normal [facility] Comment on above: Performed By: #### B MP #### [facility] [address] [place] [address] Dr. Grace Abdul Urobilinogen Qn (U) 0.2 {Ashley'U}/dL Normal 0.2 - 1. 0 [facility] Comment on above: Performed By: #### B MP #### [facility] [address] [place] [address] Dr. Grace Abdul PROF 14(COMP METB)on 022 Albumin [Mass/Vol] 3.8 g/dL Normal 3.4-5.0 [facility] Comment on above: Performed By: #### C VDTBH #### [facility] [address] [place] [address] Dr. Grace Abdul Albumin/Globulin [Mass ratio] 1.4 {ratio} Normal [facility] Comment on above: Performed By: #### C VDTBH #### [facility] [address] [place] [address] Dr. Grace Abdul ALP [Catalytic activity/Vol] 53 U/L Normal 46-116 [facility] Comment on above: Performed By: #### C VDTBH #### [facility] [address] [place] [address] Dr. Grace Abdul ALT [Catalytic activity/Vol] 20 U/L Normal 14-59 [facility] Comment on above: Performed By: #### C VDTBH #### [facility] [address] [address] [address] Grace Abdul Anion gap [Moles/Vol] 12.0 mmol/L Normal [facility] Comment on above: Performed By: #### C VDTBH #### [facility] [address] [address] [address] Grace Abdul AST [Catalytic activity/Vol] 18 U/L Normal 15-37 [facility] Comment on above: Performed By: #### C VDTBH #### [facility] [address] [address] [address] Grace Abdul Bilirubin [Mass/Vol] 0.4 mg/dL Normal 0.2-1.0 [facility] Comment on above: Performed By: #### C VDTBH #### [facility] [address] [address] [address] Grace Abdul Calcium [Mass/Vol] 9.5 mg/dL Normal 8.5-10.1 [facility] Comment on above: Performed By: #### C VDTBH #### [facility] [address] [address] [address] Grace Abdul Chloride [Moles/Vol] 99 mmol/L Normal 98-107 [facility] Comment on above: Performed By: #### C VDTBH #### [facility] [address] [address] [address] Grace Abdul CO2 [Moles/Vol] 28.1 mmol/L Normal 21.0-32.0 [facility] Comment on above: Performed By: #### C VDTBH #### [facility] [address] [address] [address] Grace Abdul Creatinine [Mass/Vol] 1.25 mg/dL Critically high 0.55-1.02 [facility] Comment on above: Performed By: #### C VDTBH #### [facility] [address] [address] [address] Grace Abdul EGFR-AF AUSTRALIAN 50 mL/min/1.73m2 Critically low >=60 [facility] Comment on above: Performed By: #### C VDTBH #### [facility] [address] [address] [address] Grace Abdul EGFR-NON AF AUSTRALIAN 41 mL/min/1.73m2 Critically low >=60 [facility] Comment on above: Performed By: #### C VDTBH #### [facility] [address] [address] [address] Grace Abdul Globulin (S) [Mass/Vol] 2.7 g/dL Normal [facility] Comment on above: Performed By: #### C VDTBH #### [facility] [address] [address] [address] Grace Abdul Glucose [Mass/Vol] 131 mg/dL Critically high 74-106 [facility] Comment on above: Performed By: #### C VDTBH #### [facility] [address] [address] [address] Grace Abdul Potassium [Moles/Vol] 4.1 mmol/L Normal 3.5-5.1 [facility] Comment on above: Performed By: #### C VDTBH #### [facility] [address] [address] [address] Grace Abdul Protein [Mass/Vol] 6.5 g/dL Normal 6.4-8.2 [facility] Comment on above: Performed By: #### C VDTBH #### [facility] [address] [address] [address] Grace Abdul Sodium [Moles/Vol] 135 mmol/L Critically low 136-145 [facility] Comment on above: Performed By: #### C VDTBH #### [facility] [address] [address] [address] Grace Abdul Urea nitrogen [Mass/Vol] 33.0 mg/dL Critically high 7.0-18.0 [facility] Comment on above: Performed By: #### C VDTBH #### [facility] [address] [address] [address] Grace Abdul Urea nitrogen/Creatinine [Mass ratio] 26.4 mg/mg Normal [facility] Comment on above: Performed By: #### C VDTBH #### [facility] [address] [place] [address] Dr. Grace Abdul URINE MICROSCOPIC ONLYon BACTERIA NONE SEEN Normal NONE SEEN [facility] Comment on above: Performed By: #### C BC #### [facility] [address] [place] [address] Dr. Grace Abdul Bacteria identified Cx Nom (U) NOT INDICATED Normal [facility] Comment on above: Performed By: #### C BC #### [facility] [address] [place] [address] Dr. Grace Abdul CAST NONE SEEN Normal NONE SEEN [facility] Comment on above: Performed By: #### C BC #### [facility] [address] [place] [address] Dr. Grace Abdul Crystals LM Nom (Urine sed) NONE SEEN Normal NONE SEEN [facility] Comment on above: Performed By: #### C BC #### [facility] [address] [place] [address] Dr. Grace Abdul Epithelial cells LM Ql (Urine sed) FEW Abnormal NONE SEEN /RARE [facility] Comment on above: Performed By: #### C BC #### [facility] [address] [place] [address] Dr. Grace Abdul MUCOUS NONE SEEN Normal NONE SEEN [facility] Comment on above: Performed By: #### C BC #### [facility] [address] [place] [address] Dr. Grace Abdul RBC 0-2 Normal 0-2 [facility] Comment on above: Performed By: #### C BC #### [facility] [address] [place] [address] Dr. Grace Abdul WBC 0-2 Abnormal NONE SEEN [facility] Comment on above: Performed By: #### C BC #### [facility] [address] [place] [address] Dr. Grace Abdul XR CHEST 1 Von [...] by: KRANTHI CONNORS Date: 2021-09-13 13:19 Normal [facility] CERV SP W/OBLS/FLEX/EXT 6 OR >on 12-12-2020 CERV SP W/OBLS/FLEX/EXT 6 OR > STUDY: CERV SP W/OBLS/FLEX/EXT 6 OR >; 12/12/2020 9:40 am INDICATION: NECK PAIN. COMPARISON: None. ACCESSION NUMBER(S): [id number] ORDERING CLINICIAN: Aiden Younger TECHNIQUE: AP, lateral, [...] findings. Dense left carotid artery calcifications. Normal [facility] Vital Signs Date Time Vital Sign Value Performing Clinician Aimee pollock 12-06-2023 11:32-0400 Body height 147.3 cm Armando Morales DO Work Phone: [facility] [employer] 12-06-2023 11:32-0400 Body mass index (BMI) [Ratio] 34.28 kg/m2 Armando Morales DO Work Phone: [facility] 12-06-2023 11:32-0400 Body weight 74.39 kg Armando Morales DO Work Phone: [facility] 12-06-2023 11:32-0400 Diastolic blood pressure 82 mm[Hg] Armando Morales DO Work Phone: [facility] 12-06-2023 11:32-0400 Systolic blood pressure 142 mm[Hg] Armando Morales DO Work Phone: [facility] 09-21-2022 12:51-0400 Diastolic blood pressure 60 mm[Hg] Carolyn Vanegas MD Work Phone: [facility] 09-21-2022 12:51-0400 Heart rate 67 /min Carolyn Vanegas MD Work Phone: [facility] 09-21-2022 12:51-0400 Systolic blood pressure 153 mm[Hg] Carolyn Vanegas MD Work Phone: [facility] 05-14-2022 14:24-0400 Diastolic blood pressure 87 mm[Hg] Marty Dozier DO Work Phone: [facility] 05-14-2022 14:24-0400 Heart rate 72 /min Marty Dozier DO Work Phone: [facility] 05-14-2022 14:24-0400 Systolic blood pressure 158 mm[Hg] Marty Dozier DO Work Phone: [facility] 05-14-2022 14:22-0400 Body height 152.4 cm Marty Dozier DO Work Phone: [facility] 05-14-2022 14:22-0400 Body weight 76.39 kg Marty Dozier DO Work Phone: [facility] 05-14-2022 14:22-0400 SaO2% (BldA) [Mass fraction] 99 % Marty Galavizis DO Work Phone: [facility] Encounters Encounter Date Encounter Type Care Provider Facility Start: 06-18-2024 End: 06-18-2024 ambulatory Lyn Quiñones MD [facility]: [facility] Start: 05-28-2024 End: 05-28-2024 ambulatory Lyn Quiñones MD [facility]: [facility] Start: 04-30-2024 End: 04-30-2024 ambulatory Lyn Quiñones MD Facility: [facility] Start: 02-06-2024 End: 02-06-2024 ambulatory Lyn Quiñones MD Facility: [facility] Start: 01-16-2024 End: 01-16-2024 ambulatory Lyn Quiñones MD Facility:[facility] Start: 12-06-2023 End: 12-06-2023 Patient encounter procedure Armando Mroales DO Work Phone: [facility] Comment on above: Encounter for gyneco logical examination without abnormal finding; Encounter for Papanicolaou smear of vagina; Breast cancer screening by mammogram Start: 12-06-2023 End: 12-06-2023 Patient encounter status Armando Morales DO Work Phone: [facility] Start: 12-06-2023 End: 12-06-2023 ambulatory ARMANDO MORALES Not Available Start: 09-26-2023 End: 09-26-2023 ambulatory Lyn Qu[facility] MD [facility] Start: 09-12-2023 End: 09-12-2023 ambulatory Lyn Quiñones MD Facility: [facility] Start: 08-18-2023 End: 08-18-2023 ambulatory Galina Rogers Facility:[facility] Start: 08-08-2023 End: 08-08-2023 ambulatory COLETTE MATOS Not Available Start: 09-21-2022 End: 09-21-2022 ambulatory GALINA ROGERS Facility:[facility] Start: 09-21-2022 End: 09-21-2022 Patient encounter procedure [...] MARTY DOZIER Facility:[facility] Start: 05-14-2022 End: 05-14-2022 Patient encounter procedure [...] 09-12-2017 End: 09-13-2017 Patient encounter DEFAULT PHYSICIAN Facility:[facility] Plan of Treatment Date Care Activity Detail Author Start: 12-10-2025 End: 12-10-2025 Patient encounter procedure 12/10/2025 11:30 AM EDT Office Visit [facility] [address] [place] [phone] Armando Morales, DO [address] [place] [address] [facility] Start: 10-23-2023 Influenza vaccination Influenza Vacc ine (#1) [facility] Start: 10-22-2022 Influenza vaccination INFLUENZA (#1) [facility] Start: 04-11-2022 COVID-19 VACCINE (6 - Moderna series) COVID-19 VACCINE (6 - Moderna series) [facility] Start: 02-21-2022 ADVANCE DIRECTIVE DISCUSSION ADVANCE DIRECTIVE DISCUSSION [facility] Start: 02-21-2022 DEPRESSION ASSESSMENT DEPRESSION ASS ESSMENT [facility] Start: 11-12-2017 Pneumococcal Vaccine : 65+ Years (2 of 2 - PPSV23 or PCV20) Pneumococcal Vaccine: 65+ Years (2 of 2 - PPSV23 or PCV20) [facility] Start: 11-12-2017 PNEUMOCOCCAL: 65+ (2 - PPSV23 if available, else PCV20) PNEUMOCOCCAL: 65+ (2 - PPSV23 if available, else PCV20) [facility] Start: 11-12-2017 PNEUMOCOCCAL: 65+ (2 - PPSV23 or PCV20) PNEUMOCOCCAL: 65+ (2 - PPSV23 or PCV20) [facility] Start: 07-22-2017 SHINGRIX VACCINE (2 of 3) SHINGRIX VACCINE (2 of 3) [facility] Start: 04-30-2004 BONE DENSITY BONE DENSITY [facility] Start: 04-30-1984 DIABETES SCREEN DIABETES SCREEN [facility] Start: 04-30-1958 Urine microalbumin profile DTAP,TDAP,TD (1 - Tdap) [facility] IGP,rfxAptima HPV all,16/18,45 IGP,rfxAptima HPV all,16/18,45 Pathology and Cytology Routine Encounter for Papanicolaou smear of vagina Ordered: 12/06/2023 [facility] Work Phone: Comment on above: Ordered: 12/06/2023 Immunizations Immunization Date Immunization Notes Care Provider Armando schwartz 12-09-2021 Moderna Bivalent Gama ster Vaccination Armando Morales DO Work Phone: [facility] 12-02-2021 Influenza, injectabl e, Madin Carmina Canine Kidney, preservative free, quadrivalent Marty Dozier DO Work Phone: [facility] 12-02-2021 influenza virus vacc ine, unspecified formulation Armando Morales DO Work Phone: [facility] 11-28-2020 influenza virus vacc ine, unspecified formulation Marty Dozier DO Work Phone: [facility] 11-29-2019 Seasonal trivalent influenza vaccine, adjuvanted, preservative free Marty Dozier DO Work Phone: [facility] 05-27-2017 zoster vaccine, live Marty Dozier DO Work Phone: [facility] 11-12-2016 pneumococcal conjuga te vaccine, 13 valent Marty Dozier DO Work Phone: [facility] Payers Date Payer Category Payer Private Health Insurance [id number] 2004 Medicare [id number] 2004 Unknown 1959 Medicare [id number] 1959 Self-pay 1959 Unknown [id number] 1939 Unknown [id number] 2.16.84 0.1.255756.3.579.2.593 1939 Unknown [id number] 2.16.84 0.1.182324.3.579.2.593 1939 Unknown [id number] 2.16.84 0.1.114809.3.579.2.593 1939 Unknown [id number] 2.16.84 0.1.364736.3.579.2.593 1939 Unknown [id number] 2.16.84 0.1.216396.3.579.2.593 1939 Unknown [id number] 2.16.84 0.1.999558.3.579.2.593 1939 Unknown [id number] 2.16.84 0.1.698004.3.579.2.593 1939 Unknown [id number] 2.16.84 0.1.603654.3.579.2.593 1939 Unknown [id number] 2.16.84 0.1.600810.3.579.2.593 1939 Unknown [id number] 2.16.84 0.1.825581.3.579.2.593 1939 Unknown [id number] 2.16.84 0.1.389976.3.579.2.593 1939 Unknown [id number] 2.16.84 0.1.327810.3.579.2.593 1939 Unknown [id number] 2.16.84 0.1.757710.3.579.2.593 1939 Unknown [id number] 2.16.84 0.1.818943.3.579.2.593 1939 Unknown [id number] 2.16.84 0.1.229727.3.579.2.593 1939 Unknown [id number] 2.16.84 0.1.102109.3.579.2.593 1939 Unknown [id number] 2.16.84 0.1.746821.3.579.2.593 1939 Unknown [id number] 2.16.84 0.1.015159.3.579.2.593 1939 Unknown [id number] 2.16.84 0.1.433716.3.579.2.593 1939 Unknown [id number] 2.16.84 0.1.731879.3.579.2.593 1939 Unknown [id number] 2.16.84 0.1.943900.3.579.2.593 1939 Unknown [id number] 2.16.84 0.1.953810.3.579.2.593 1939 Unknown [id number] 2.16.84 0.1.953365.3.579.2.593 1939 Unknown [id number] 2.16.84 0.1.422639.3.579.2.593 1939 Unknown [id number] 2.16.84 0.1.232733.3.579.2.593 1939 Unknown [id number] 2.16.84 0.1.398332.3.579.2.1259 1939 Unknown [id number] 2.16.84 0.1.038363.3.579.2.1259 1939 Unknown [id number] 2.16.84 0.1.029039.3.579.2.1259 1939 Unknown [id number] 2.16. 840.1.760268.3.579.2.196 1939 Unknown [id number] 2.16. 840.1.797957.3.579.2.196 1939 Unknown [id number] 2.16. 840.1.323774.3.579.2.196 1939 Unknown [id number] 2.16. 840.1.729953.3.579.2.196 1939 Unknown [id number] 2.16. 840.1.141742.3.579.2.196 1939 Unknown [id number] 2.16. 840.1.371485.3.579.2.196 1939 Unknown [id number] 2.16. 840.1.478324.3.579.2.196 Social History Date Type Detail Facility Start: 05-14-2022 End: 08-02-2022 Tobacco smoking status NHIS Never smoked tobacco [facility] Start: 05-14-2022 End: 08-02-2022 Tobacco use and exposure Smokeless tobacco non-user [facility] Start: 05-14-2022 End: 12-06-2023 Alcohol intake Lifetime non-drinker (finding) [facility] Start: 1940 Sex Assigned At Not on file C [facility] Start: 09-21-2022 End: 12-06-2023 History of Social function [facility] Start: 09-21-2022 End: 12-06-2023 Tobacco use panel [facility] Adult Depression Scr eening Assessment 2 [facility] How often to you [...] Obstetrics and Gynecology Alexa Delgado 1940 12/06/23 [id number] Yearly Wellness Exam Chief Complaint Patient presents with Gynecologic Exam Medicare yearly. LMP: SUNIL BSO 1972 HRT: None Last pap 12-02-21 neg. Last mammogram 12-05-23 [facility] ordered by PCP. Denies breast or [...] Oil) 1000 MG capsule as directed Orally Jhdyxrgjvjm-Clmnoeassro-DVW (Triple Flex) 500-400-125 MG tablet 1 tablet with meals Orally twice daily for 30 days HYDROcodone-acetaminophen ([place]) 5-325 MG tablet 1 tablet as needed [...] excision of lesion on leg ( benign) [place] CAPSULOTOMY POSTERIOR CAPSULAR RELEASE KNEE 05/15/2013 Yttrium aluminum garnet (YAG) capsulotomies [place] KNEE SCOPE,CLEAN/DRAIN 10/1998 Dr. De Leon [place] LAMNOTMY INCL W/DCMPRSN NRV ROOT 1 INTRSPC CERVC 12/20/2006 L4-5 Hemilaminectomy / Discectomy - Dr. Arshad SALPINGOOPHORECTOMY Left 1981 SKIN SURGERY 12/13/2008 excision neoplasm LT leg TONSILLECTOMY 1957 TOTAL ABDOMINAL HYSTERECTOMY 1973 SUNIL RSO TOTAL KNEE ARTHROPLASTY Right 09/22/2017 Dr. de leon Past Medical History: Diagnosis Date Angina pectoris (CMS/HCC) Angina pectoris ([facility]) 11/2019 hx of hospitalization Melchor's palsy 1 Breast nodule Cataract 2012 COVID-19 10/2021 hx of hospitalization History of medical problems 1982 MMK LSO HTN (hypertension) ([facility]) Hx of completed stroke hx of stroke at [id number]/ TIA 1985 Kidney disease remission Kidney disease hx of hospitalization Lumbar disc herniation 2007 L4 L5 Miscarriage x3 Pelvic fracture ([facility]) 2018 hx of hospitalization x4 Status post laser cataract surgery of left eye 2014 Stroke ([facility]) 1973 at childbirth TIA (transient ischemic [...] costovertebral angle tenderness, no obvious scoliosis/kyphosis. 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 documented in this encounter [facility] 09-21-2022 Note HNO ID: [id number] Author: Carolyn Vanegas MD Service: ? Author [...] 1,000 mg by mouth once daily. fexofenadine (EBNITA ALLERGY) 180 mg tablet Take 180 mg [...] Health Percentile 1 (more content not included)... [facility] 09-21-2022 Instructions Carolyn Vanegas MD - 09/21/2022 [...] in this encounter [facility] 09-21-2022 History of Present [...] in this encounter [facility] 08-26-2022 Note HNO ID: [id number] Author: Kassandra Alves PA-C Service: ? Author Type: Physician Tin Flipper Type: Progress Notes Filed: 08/26/2022 11:52 AM Note Text: Per Triage: Alexa Delgado is a 82 year old female that requests evaluation of spine. Per review, they have symptoms of lower back pain. Numbness/tingling right leg. Difficulty walking. Weakness Request: 1st available Referring provider: Galina Rogers MD Patient out of state: no 2nd opinion: no Prior spine surgery: yes 2006 [facility] Address: [address] [place] [address] CMT: PT Injections Tylenol Hydrocodone Studies (Reports [...] reviewed during the appt Kassandra Alves PA-C [facility] 08-26-2022 History of Present illness Narrative Per Triage: Alexa Delgado is a 82 year old female that requests evaluation of spine. Per review, they have symptoms of lower back pain. Numbness/tingling right leg. Difficulty walking. Weakness Request: 1st available Referring provider: Galina Rogers MD Patient out of state: no 2nd opinion: no Prior spine surgery: yes 2006 [facility] Address: [address] [id number] CMT: PT Injections Tylenol Hydrocodone Studies (Reports [...] Health Provider or Pain Management Provider at [facility]? No If answer is YES please [...] facility where the MRI/CT/myelogram was completed: [facility] Address: [address] [place] [address] MRI/CT/myelogram viewable in Epic: No If not, please provide [phone] to fax in imaging reports for review. [...] physical therapy was completed PT Injection [facility] Address: [address] [place] [address] Have you tried any other kinds of [...] of where the surgery was completed: 2006 [facility] Address: [address] [place] [address] Additional Comments documented in this encounter [facility] 08-19-2022 Note HNO ID: [id number] Author: Micheal Bowman Service: ? Author Type: ? Type: Progress Notes Filed: 08/26/2022 11:52 AM Note Text: Patient name: Alexa Delgado Are you being referred by a [place] for Spine Health Provider or Pain Management Provider at [facility]? No If answer is YES please [...] facility where the MRI/CT/myelogram was completed: [facility] Address: [address] [place] [address] MRI/CT/myelogram viewable in Epic: No If not, please provide [phone] to fax in imaging reports for review. [...] physical therapy was completed PT Injection [facility] Address: [address] [id number] Have you tried any other kinds of [...] where the surgery was completed: 2006 [facility] Address: [address] [place] [address] Additional Comments [facility] 07-16-2022 Note PROCEDURE: XR HIP RT 2 [...] authenticated by: HERMES MENDOZA Date: 2022-07-16 11:28 [facility] 05-14-2022 Note HNO ID: [id number] Author: Marty Dozier, DO Service: ? Author Type: Physician Type: Progress Notes Filed: 05/15/2022 10:02 PM Note Text: [facility] [facility] - Medical [...] Ratio: R>L low back Current Treatment: Medications [place]ora 5-325 mg BID - helps Diclofenac 75 [...] but still has pain -01/28/22 Noemi Sequeira STUDENT UNION CONSULTANT: BL Lumbar erector spinae TPI (0.125% Marcaine, [...] ongoing as of 04/17/21 -03/08/21 Noemi Sequeira STUDENT UNION CONSULTANT: Left rhomboid TPI (0.125% Marcaine, 40 mg Kenalog) -02/03/21 LESI - moderate relief for 4 days Prior spine surgery: -2006 L4-5 Discectomy Previously treated by: -[facility], previously Dr. Niko [...] evaluation at the [facility] tomorrow at the Spine Center. RECOMMENDATIONS: We will see the patient back in the office after she undergoes evaluation there to discuss her treatment plan thereafter. We will see the patient back in the office in approximately four weeks' time or sooner if needed. PMH: Lumbar scoliosis Depression on Negrita (more content not included)... [facility] 05-14-2022 History of Present illness Narrative Images from the original note were not included. [facility] - Medical [...] Ratio: R>L low back Current Treatment: Medications [place] 5-325 mg BID - helps Diclofenac 75 [...] but still has pain -01/28/22 Noemi Sequeira STUDENT UNION CONSULTANT: BL Lumbar erector spinae TPI (0.125% Marcaine, [...] ongoing as of 04/17/21 -03/08/21 Noemi Sequeira STUDENT UNION CONSULTANT: Left rhomboid TPI (0.125% Marcaine, 40 mg Kenalog) -02/03/21 LESI - moderate relief for 4 days Prior spine surgery: -2006 L4-5 Discectomy Previously treated by: -[facility], previously Dr. Niko [...] evaluation at the [facility] tomorrow at the Spine [...] 04/04/22 CT abd/pelvis with IV contrast, [facility], report: Abdominal wall: Old healed left pelvis fractures. Degenerative changes and scoliosis of the lumbar spine. IMPRESSION: No acute abdominal pathology. No acute inflammatory process. No obstructing urinary tract stone. No evidence for bowel obstruction. 11/15/21 XR abd, [facility], report: No acute osseous abnormality. There is moderate dextrocurvature of the lumbar spine. 05/08/2021 XR right hip/pelvis, [facility], report: Rotatory dextro scoliosis of the [...] in this encounter [facility] 05-13-2022 Note CONSULTATION CONSULTATION [...] mg at h.s., diclofenac 75 mg b.i.d., [place] 5 mg b.i.d. EXAM: Notable for the [...] evaluation at the [facility] tomorrow at the Spine Center. RECOMMENDATIONS: We will see the patient back in the office after she undergoes evaluation there to discuss her treatment plan thereafter. We will see the patient back in the office in approximately four weeks' time or sooner if needed. [facility] 04-06-2022 Note CONSULTATION CONSULTATION DATE: 04/06/2022 [...] to kidney dysfunction also. The patient takes [place] Flora, however, is very controlled and limits it to the point of detriment. Education was done. The patient was instructed to take the [place] Flora to a b.i.d. to t.i.d. basis. The [...] b.i.d. basis. The patient may increase the [place] Flora to 5/325 t.i.d. We will schedule the [...] the procedure. CC: Galina Rogers M.D. [facility] 03-11-2022 Note CONSULTATION CONSULTATION DATE: 03/11/2022 [...] gave improvement for 24 hours. Medications include [place] 5/325 b.i.d., diclofenac 75 mg b.i.d., citalopram [...] back pain. PLAN: We will refill her [place]ora 5/325 b.i.d. We will prescribe her Buderer cream with gabapentin, ketorolac and prilocaine/lidocaine to be placed over her right knee. We will trial Requip 0.25 mg q.h.s. We will see the patient in the clinic in three months' time unless otherwise indicated. Patient agrees with the plan. [facility] 01-28-2022 Note CONSULTATION CONSULTATION DATE: 01/28/2022 [...] daily which decreases her pain. Medications include [place] 5/325 b.i.d., Flexeril 5 mg b.i.d., diclofenac [...] does consent to. We will refill the [place] 5/325 b.i.d. We will pre-authorize for a right genicular nerve block under fluoroscopy. Patient will follow up in the clinic thereafter. [facility] 01-28-2022 Note CONSULTATION PROCEDURE DATE: 01/28/2022 [...] be followed up in the office. [facility] 12-31-2021 Note CONSULTATION CONSULTATION DATE: 12/31/2021 [...] Current medications include diclofenac 75 mg b.i.d., [place] 5/325 b.i.d., citalopram, Flexeril and multivitamin regimen. The patient does state that she breaks her [place] Flora in half and the most she takes [...] and would like to move forward. [facility] 09-30-2021 Note CONSULTATION CONSULTATION DATE: 09/30/2021 This is a very [id number] female accompanied by her returning to the [...] Current medications include diclofenac 50 mg b.i.d., [place] 5/325 b. i.d. and Tylenol. She does [...] at 25 mg q.h.s. Refill for her [place] 5/325 b.i.d. will be sent as well. The patient is to continue with her vitamin regimen which she is currently compliant with, as well as heat application and pool exercises. The patient will be followed up in the office in three months' time unless otherwise indicated. The patient agrees with the plan of care. [facility] Evaluation note Diagnosis Chronic bilateral low back pain with right-sided sciatica- Primary Back pain, lumbosacral Lumbago Chronic sacroiliac joint pain Disorders of sacrum Lumbar spondylosis Lumbosacral spondylosis without myelopathy Scoliosis of lumbar spine, unspecified scoliosis type documented [facility] Spinal stenosis, lumbar region with neurogenic claudication- Primary Spondylolisthesis, lumbar region Other idiopathic scoliosis, lumbar region [facility] Diagnosis Obesity, Class I, BMI 30-34.9- Primary Obesity, unspecified Spinal stenosis, lumbar region with neurogenic claudication [facility] Diagnosis Encounter for gynecological examination without [...] By Contac t Referred To [facility] Diagnoses Spinal stenosis, lumbar region with neurogenic claudication Procedures CONSULT TO [facility]) OFFICE/OUTPATIENT NEW HIGH MDM 60-74 MINUTES Carolyn Vanegas MD [address] [place] [address] Referral ID Status Reason Start Date Expiration Date Visits Requested Visits Authorized [id number] Pending Review PCP Requested Referral 09/21/2022 09/21/2023 1 1 Additional Source Comments INFORMATION SOURCE (unrecogn ized section and content) DATE CREATED AUTHOR 09/13/2017 [facility] DATE CREATED AUTHOR AUTHOR'S ORGANIZ ATION 12/13/2020 [facility] DATE CREATED AUTHOR AUTHOR'S ORGANIZ ATION 07/30/2022 [facility] DATE CREATED AUTHOR AUTHOR'S ORGANIZ ATION 09/22/2022 [facility] DATE CREATED AUTHOR AUTHOR'S ORGANIZ ATION 10/26/2023 [facility] DATE CREATED AUTHOR AUTHOR'S ORGANIZ ATION 12/08/2023 [facility] EP[facility] DATE CREATED AUTHOR AUTHOR'S ORGANIZ ATION 06/25/2024 [facility] Source Comments (unrecognize d section and content) In the event this informatio n is protected by the Federal Confidentiality of Alcohol and Drug Abuse Patient Records regulations: The Federal rules restrict any use of the information to criminally investigate or prosecute any alcohol or drug abuse patient.[facility] the event this information is protected by the Federal Confidentiality of Alcohol and Drug Abuse Patient Records regulations: The Federal rules restrict any use of the information to criminally investigate or prosecute any alcohol or drug abuse patient.[facility] the event this information is protected by the Federal Confidentiality of Alcohol and Drug Abuse Patient Records regulations: The Federal rules restrict any use of the information to criminally investigate or prosecute any alcohol or drug abuse patient.[facility] Reason for Visit (unrecogniz ed section and content) Reason Comments New Patient Evaluation Low Back Pain Reason Comments New Patient Reason Comments Gynecologic Exam Medicare yearly.LMP: SUNIL BSO 1973HRT: NoneLast pap 12-02-21 neg.Last mammogram 12-05-23 [facility] ordered by PCP.Denies breast or urinary concerns. bowel concern Some rectal bleeding with bowel movements. Denies difficulty having a bowel movement. Care Teams (unrecognized sec tion and content) Clinical Athletic Instructor Relationship Specialty Start Date End Date Galina Rogers MD [address] [place] [address] PCP - General Family Medicine 05/14/22 Colette De Leon Jr., DO [address] [facility] [address] [place] [address] Referring Orthopedics 05/03/22 Porsha Garcia [address] [address] Pain Management 05/14/22 Haley Colette Shante Matos, DO [address] [place] [address] Orthopedics 05/14/22 Clinical Athletic Instructor Relationship Specialty Start Date End Date Galina Rogers MD [address] [facility] [place] [place] [address] PCP - General Family Medicine 05/14/22 Colette De Leon Jr., DO [address] [place] [address] Referring Orthopedics 05/03/22 Porsha Garcia [address] [place] [address], [place] [phone] Pain Management 05/14/22 Colette De Leon Jr., DO [address] [place] [address] Orthopedics 05/14/22 Galina Rogers MD [address] [facility] [place] [place] [address] Referring Family Medicine 08/11/22 Clinical Athletic Instructor Relationship Specialty Start Date End Date Galina Rogers MD [address] [facility] [place] [place] [address] PCP - General Family Medicine 05/14/22 Colette De Leon Jr., DO [address] [place] [address] Referring Orthopedics 05/03/22 Shermijacque, Claudioendranath [address] [place] [address], [place] [address] Pain Management 05/14/22 Colette De Leon Jr., [address] [place] [address] Orthopedics 05/14/22 Galina Rogers MD [address] [place] [phone] Referring Family Medicine 08/11/22 Clinical Athletic Instructor Relationship Specialty Start Date End Date Galina Rogers MD [address] [place] [phone] PCP - General Family Medicine 08/02/22 FOR [...] ON THE PRIMARY CLINICAL RECORDS. [facility]. provides no warranty or guarantee of the accuracy or completeness of information in this document.
--- NOTE | 2024-09-06 11:28 | PM.WCHP ---
Wound Care H&P: HPI History of Present Illness Narrative: Mrs. Delgado is a pleasant 84-year-old female with history of previous stroke with left-sided hemiparesis who presents for routine toenail care. She denies symptoms of claudication. She states her toenails are painful when elongated but pain is relieved when the toenails are trimmed. She is unable to reach her toes and does not have the dexterity to trim them due to her previous stroke. PFSH PFS Medical History Chest pain, rule out acute myocardial infarction �R07.9 - Chest pain, unspecified (ICD-10) CAD (coronary artery disease) �I25.10 - Atherosclerotic heart disease of [place] coronary artery without angina pectoris (ICD-10) Hypothyroid �E03.9 - Hypothyroidism, unspecified (ICD-10) Hypertension �I10 - Essential (primary) hypertension (ICD-10) Pelvic fracture �S32.9XXA - Fracture of unspecified parts of lumbosacral spine and pelvis, initial encounter for closed fracture (ICD-10) TIA (transient ischemic attack) �G45.9 - Transient cerebral ischemic attack, unspecified (ICD-10) Closed fracture of coccyx �S32.2XXA - Fracture of coccyx, initial encounter for closed fracture (ICD-10) Osteoarthritis �M19.90 - Unspecified osteoarthritis, unspecified site (ICD-10) H/O pyelonephritis �Z87.448 - Personal history of other diseases of urinary system (ICD-10) Syncope �R55 - Syncope and collapse (ICD-10) Generalized weakness �R53.1 - Weakness (ICD-10) Dizziness �R42 - Dizziness and giddiness (ICD-10) Surgical History Pain management �R52 - Pain, unspecified (ICD-10) H/O bladder repair surgery �Z98.890 - Other specified postprocedural states (ICD-10) H/O breast surgery �Z98.890 - Other specified postprocedural states (ICD-10) H/O knee surgery �Z98.890 - Other specified postprocedural states (ICD-10) H/O foot surgery �Z98.890 - Other specified postprocedural states (ICD-10) History of right knee joint replacement �Z96.651 - Presence of right artificial knee joint (ICD-10) History of YAG laser capsulotomy of lens �Z98.49 - Cataract extraction status, unspecified eye (ICD-10) Hx laparoscopic cholecystectomy �Z90.49 - Acquired absence of other specified parts of digestive tract (ICD-10) H/O: hysterectomy �Z90.710 - Acquired absence of both cervix and uterus (ICD-10) History of arthroscopic knee surgery �Z98.890 - Other specified postprocedural states (ICD-10) H/O discectomy �Z98.890 - Other specified postprocedural states (ICD-10) H/O dilation and curettage �Z98.890 - Other specified postprocedural states (ICD-10) History of appendectomy �Z90.49 - Acquired absence of other specified parts of digestive tract (ICD-10) Hx of tonsillectomy �Z90.89 - Acquired absence of other organs (ICD-10) Family History Other Family history of CHF (congestive heart failure) Social History Within the past year, how often did you have a drink containing alcohol: never Score interpretation: A score less than 3 is consistent with normal alcohol consumption. Smoking status: Never smoker Non-prescribed substance use: denies use Previous occupational history: Retired, , lives at home Highest level of school completed/degree received: high school graduate Are you now , , , , never or living with a partner: In a typical week, how many times do you talk on the telephone with family, friends, or neighbors: once per week How often do you get together with friends or relatives: once per week How often do you attend adventism or spiritism services: 1-3 times per year Little interest or pleasure in doing things: not at all Feeling down, depressed, or hopeless: not at all Feel stressed/tense/nervous/anxious/difficulty sleeping: not at all Gender Identity: female Meds Home Medications and Allergies Home Medications �Medication �Instructions �Recorded �Confirmed �Type calcium 600 mg (as carbonate)-vit 1 tab PO DAILY 07/26/22 11/04/23 History D3 10 mcg (400 unit)-minerals tablet Held on 11/04/23. Instructions: on hold capsaicin 0.025 % topical patch 1 patch topical DAILY pain 07/26/22 05/28/24 History (Salonpas-Hot) citalopram 10 mg tablet 10 mg PO DAILY 07/26/22 07/23/24 History fexofenadine 180 mg tablet 180 mg PO DAILY 07/26/22 07/23/24 History (Benita Allergy) flaxseed oil 1,000 mg capsule 1,000 mg PO DAILY 07/26/22 07/23/24 History glucosamine 750 pz-dxnbuy-xsu 2-C 1 tab PO DAILY 07/26/22 07/23/24 History 30 mg-D3 1,000 unit-maida 1 mg tablet (Fadqaojacxh-Czfbkcigdfz-HSF + vitD) isosorbide mononitrate 30 mg 30 mg PO DAILY 07/26/22 07/23/24 History tablet,extended release 24 hr liothyronine 25 mcg tablet 25 mcg PO DAILY 07/26/22 07/23/24 History (Cytomel) melatonin 3 mg capsule 3 mg PO DAILY 07/26/22 07/23/24 History metoprolol succinate 50 mg 50 mg PO BID 07/26/22 07/23/24 History tablet,extended release 24 hr multivitamin 1 tab PO DAILY 07/26/22 05/28/24 History nitroglycerin 0.4 mg sublingual 0.4 mg sublingual Q5M PRN chest 07/26/22 07/23/24 History tablet pain cyclobenzaprine 10 mg tablet 10 mg PO BEDTIME 04/20/23 07/23/24 History ferrous sulfate 325 mg (65 mg 325 mg PO BID 09/02/23 07/23/24 History iron) tablet diclofenac sodium 75 mg 75 mg PO BID 10/13/23 07/23/24 History tablet,delayed release levothyroxine 75 mcg tablet 75 mcg PO QAM 10/13/23 07/23/24 History pantoprazole 40 mg tablet,delayed 40 mg PO DAILY #30 tabs 10/13/23 07/23/24 Rx release (Protonix) calcium 600 mg (as carbonate)-vit 1 tab PO BID 11/04/23 07/23/24 History D3 20 mcg (800 unit) chewable tablet (Caltrate plus D) gabapentin 100 mg capsule 100 mg PO BID #60 caps 01/05/24 07/23/24 Rx hydrocodone 5 mg-acetaminophen 325 1 tab PO TID PRN pain #90 tabs 01/05/24 07/23/24 Rx mg tablet hydrocodone 5 mg-acetaminophen 325 1 tab PO TID PRN pain #90 tabs 05/16/24 05/28/24 Rx mg tablet hydrocodone 5 mg-acetaminophen 325 1 tab PO TID PRN pain #90 tabs 07/18/24 Rx mg tablet gabapentin 100 mg capsule 100 mg PO BID #60 caps 08/22/24 Rx hydrocodone 5 mg-acetaminophen 325 1 tab PO TID PRN pain #90 tabs 08/22/24 Rx mg tablet Allergies Allergy/AdvReac Type Severity Reaction Status Date / Time Penicillins Allergy Severe Hives Verified 05/28/24 10:54 codeine AdvReac Intermediate Dizziness Verified 05/28/24 10:54 fluconazole (From Diflucan) AdvReac Intermediate Hives Verified 05/28/24 10:54 quinine (From Quinamm) AdvReac Mild Headache Verified 05/28/24 10:54 pregabalin (From Lyrica) AdvReac Dizziness Verified 05/28/24 10:54 propoxyphene (From Darvon) AdvReac Headache Verified 05/28/24 10:54 decongest multi-action AdvReac Mild Headache Uncoded 05/28/24 10:54 Exam Narrative: Exam Narrative: Dermatologic: Fungal mycotic toenails of toes 2 through 5 on each foot. Skin is shiny and atrophic. Skin is diffusely dry and thin. Hallux toenails are absent bilaterally. Neurologic: Decreased tone on the left. Protective sensation is intact. Vascular: Nonpalpable PT pulses bilaterally. DP pulses are 1/4 bilaterally. Varicosities are present bilaterally. Feet are cool to the touch. Digital hair is absent bilaterally. Musculoskeletal: No gross deformity. Strength and range of motion is within normal limits. Assessment and Plan Assessment and Plan (1) Disorder of nail due to another disorder: (2) Diminished pulses in lower extremity: (3) Gait instability: (4) Tinea unguium: (5) PAD (peripheral artery disease): (6) Ambulatory dysfunction: Plan Routine nail care performed. Follow-up in 3 months. Acute Procedures Podiatry Nail Debridement Class B Findings Absent posterior tibial pulse: bilateral Advanced trophic changes as evidenced by any three of the following: decreased hair growth, nail changes (thickening) and skin texture (thin or shiny) Class C Findings Claudication: No Temperature changes: Yes Edema: Yes Nail debridement paresthesia (abnormal spontaneous sensations in the feet): No Burning: No Qualifies If: Qualifiers If:: A patient qualifies for nail debridement if they have: 1 class A finding (Q7) 2 class B findings (Q8) OR 1 class B & 2 class C findings in addition to a primary condition (Q9) Nail Procedure Nail Procedure Time out: Yes Nail procedure: other (Toenail debridement) Number of affected nails: 8 Location (toes): left and right Procedure successful: Yes Patient tolerated procedure: well and no complications Additional comments: Toenails 2 through 5 on each foot were sharply debrided with nail nippers without incident. Hallux toenails have been removed previously.
== END 2024-09-06 10:49 | disposition home or self-care (01) ==
LOC: WC 10:50
PROVIDERS: PCP Family Medicine; Visit Provider Physician Assistant
DX: L60.8 Other nail disorders (principal); I70.203 Unspecified atherosclerosis of native arteries of extremities, bilateral legs; R26.89 Other abnormalities of gait and mobility; B35.1 Tinea unguium; I73.89 Other specified peripheral vascular diseases
CPT/HCPCS: 11721

== ENCOUNTER 2024-09-19 14:27 | Outpatient (OUT) | payer MEDICARE, SELFPAY ==
--- NOTE | 2024-09-19 15:01 | PM.CN ---
Consult Note: HPI Data of Consult Patient: known to practice within the last 3 years Requesting Physician: Vivian Meza NP Primary Care Provider: Luis Rogers MD Consult Narrative Reason for consult: f/u Narrative: Alexa Delgado a pleasant 84 year old female presents for evaluation and management of chronic low back and bilateral SIJ pain. Patient rating pain 3-4/10 today, increasing to 10/10 with standing walking and activity. pain improved with lying down, heat, and medications. Patient has found significant improvement in pain and functional ability with past procedures and current medication regimen. currently taking gabapentin 100mg BID, norco 5-32m5 BID-TID PRN, flexeril 5mg bid, tylenol prn. since last visit pt had a severe fall with injury, was evaluated by the er. has noticed increased numbness to left forearm for 1 month. hx of cervical ddd and stenosis on prior imaging. prior left L4-5 L5-S1 TFESI provided >50% improvement for 3 months, would like to discuss repeating. cc:: CC: Vivian Meza NP Review of Systems ROS Musculoskeletal Reports: back pain, neck pain, extremity pain and joint pain PFSH [facility] Medical History Chest pain, rule out acute myocardial infarction ?R07.9 - Chest pain, unspecified (ICD-10) CAD (coronary artery disease) ?I25.10 - Atherosclerotic heart disease of [place] coronary artery without angina pectoris (ICD-10) Hypothyroid ?E03.9 - Hypothyroidism, unspecified (ICD-10) Hypertension ?I10 - Essential (primary) hypertension (ICD-10) Pelvic fracture ?S32.9XXA - Fracture of unspecified parts of lumbosacral spine and pelvis, initial encounter for closed fracture (ICD-10) TIA (transient ischemic attack) ?G45.9 - Transient cerebral ischemic attack, unspecified (ICD-10) Closed fracture of coccyx ?S32.2XXA - Fracture of coccyx, initial encounter for closed fracture (ICD-10) Osteoarthritis ?M19.90 - Unspecified osteoarthritis, unspecified site (ICD-10) H/O pyelonephritis ?Z87.448 - Personal history of other diseases of urinary system (ICD-10) Syncope ?R55 - Syncope and collapse (ICD-10) Generalized weakness ?R53.1 - Weakness (ICD-10) Dizziness ?R42 - Dizziness and giddiness (ICD-10) Surgical History Pain management ?R52 - Pain, unspecified (ICD-10) H/O bladder repair surgery ?Z98.890 - Other specified postprocedural states (ICD-10) H/O breast surgery ?Z98.890 - Other specified postprocedural states (ICD-10) H/O knee surgery ?Z98.890 - Other specified postprocedural states (ICD-10) H/O foot surgery ?Z98.890 - Other specified postprocedural states (ICD-10) History of right knee joint replacement ?Z96.651 - Presence of right artificial knee joint (ICD-10) History of YAG laser capsulotomy of lens ?Z98.49 - Cataract extraction status, unspecified eye (ICD-10) Hx laparoscopic cholecystectomy ?Z90.49 - Acquired absence of other specified parts of digestive tract (ICD-10) H/O: hysterectomy ?Z90.710 - Acquired absence of both cervix and uterus (ICD-10) History of arthroscopic knee surgery ?Z98.890 - Other specified postprocedural states (ICD-10) H/O discectomy ?Z98.890 - Other specified postprocedural states (ICD-10) H/O dilation and curettage ?Z98.890 - Other specified postprocedural states (ICD-10) History of appendectomy ?Z90.49 - Acquired absence of other specified parts of digestive tract (ICD-10) Hx of tonsillectomy ?Z90.89 - Acquired absence of other organs (ICD-10) Family History Other Family history of CHF (congestive heart failure) Social History Within the past year, how often did you have a drink containing alcohol: never Score interpretation: A score less than 3 is consistent with normal alcohol consumption. Smoking status: Never smoker Non-prescribed substance use: denies use Previous occupational history: Retired, , lives at home Highest level of school completed/degree received: high school graduate Are you now , , , , never or living with a partner: In a typical week, how many times do you talk on the telephone with family, friends, or neighbors: once per week How often do you get together with friends or relatives: once per week How often do you attend advent or holiness services: 1-3 times per year Little interest or pleasure in doing things: not at all Feeling down, depressed, or hopeless: not at all Feel stressed/tense/nervous/anxious/difficulty sleeping: not at all Gender Identity: female Meds Home Medications and Allergies Home Medications ?Medication ?Instructions ?Recorded ?Confirmed ?Type calcium 600 mg (as carbonate)-vit 1 tab PO DAILY 07/26/22 11/04/23 History D3 10 mcg (400 unit)-minerals tablet Held on 11/04/23. Instructions: on hold capsaicin 0.025 % topical patch 1 patch topical DAILY pain 07/26/22 05/28/24 History (Salonpas-Hot) citalopram 10 mg tablet 10 mg PO DAILY 07/26/22 07/23/24 History fexofenadine 180 mg tablet 180 mg PO DAILY 07/26/22 07/23/24 History (Benita Allergy) flaxseed oil 1,000 mg capsule 1,000 mg PO DAILY 07/26/22 07/23/24 History glucosamine 750 iv-zfidsh-zps 2-C 1 tab PO DAILY 07/26/22 07/23/24 History 30 mg-D3 1,000 unit-maida 1 mg tablet (Xryrosskurv-Jlquyylmaoq-OGH + vitD) isosorbide mononitrate 30 mg 30 mg PO DAILY 07/26/22 07/23/24 History tablet,extended release 24 hr liothyronine 25 mcg tablet 25 mcg PO DAILY 07/26/22 07/23/24 History (Cytomel) melatonin 3 mg capsule 3 mg PO DAILY 07/26/22 07/23/24 History metoprolol succinate 50 mg 50 mg PO BID 07/26/22 07/23/24 History tablet,extended release 24 hr multivitamin 1 tab PO DAILY 07/26/22 05/28/24 History nitroglycerin 0.4 mg sublingual 0.4 mg sublingual Q5M PRN chest 07/26/22 07/23/24 History tablet pain cyclobenzaprine 10 mg tablet 10 mg PO BEDTIME 04/20/23 07/23/24 History ferrous sulfate 325 mg (65 mg 325 mg PO BID 09/02/23 07/23/24 History iron) tablet diclofenac sodium 75 mg 75 mg PO BID 10/13/23 07/23/24 History tablet,delayed release levothyroxine 75 mcg tablet 75 mcg PO QAM 10/13/23 07/23/24 History pantoprazole 40 mg tablet,delayed 40 mg PO DAILY #30 tabs 10/13/23 07/23/24 Rx release (Protonix) calcium 600 mg (as carbonate)-vit 1 tab PO BID 11/04/23 07/23/24 History D3 20 mcg (800 unit) chewable tablet (Caltrate plus D) gabapentin 100 mg capsule 100 mg PO BID #60 caps 01/05/24 07/23/24 Rx hydrocodone 5 mg-acetaminophen 325 1 tab PO TID PRN pain #90 tabs 01/05/24 07/23/24 Rx mg tablet hydrocodone 5 mg-acetaminophen 325 1 tab PO TID PRN pain #90 tabs 05/16/24 05/28/24 Rx mg tablet hydrocodone 5 mg-acetaminophen 325 1 tab PO TID PRN pain #90 tabs 07/18/24 Rx mg tablet gabapentin 100 mg capsule 100 mg PO BID #60 caps 08/22/24 Rx hydrocodone 5 mg-acetaminophen 325 1 tab PO TID PRN pain #90 tabs 08/22/24 Rx mg tablet Allergies Allergy/AdvReac Type Severity Reaction Status Date / Time Penicillins Allergy Severe Hives Verified 05/28/24 10:54 codeine AdvReac Intermediate Dizziness Verified 05/28/24 10:54 fluconazole (From Diflucan) AdvReac Intermediate Hives Verified 05/28/24 10:54 quinine (From Quinamm) AdvReac Mild Headache Verified 05/28/24 10:54 pregabalin (From Lyrica) AdvReac Dizziness Verified 05/28/24 10:54 propoxyphene (From Darvon) AdvReac Headache Verified 05/28/24 10:54 decongest multi-action AdvReac Mild Headache Uncoded 05/28/24 10:54 Exam Constitutional Documenting provider has reviewed patient's vital signs: yes Common normals: no apparent distress, oriented x3, healthy appearing, alert and well nourished General appearance: cooperative [facility] Common normals: normocephalic, hearing grossly normal bilaterally and moist oral mucous membranes Head and scalp: normocephalic Eye Common normals: PERRL Pupil: PERRL Neck & C-Spine Common normals: full ROM General: normal visual inspection Cervical spine: cervical ROM abnormal and pain with cervical ROM; no cervical spine tenderness Other: negative spurlings decreased sensation left C5,6,7 strength 4/5 in LUE and 5/5 in RUE Chest Common normals: inspection of chest normal Respiratory Common normals: normal respiratory effort, no retractions and no use of accessory muscles Back & Pelvis Lumbar spine/lower back: ROM limited, pain with ROM and straight leg raise positive left Sacroiliac joints: SI joints normal Other: bilateral SIJ negative marge(patricks), gaenslens, thigh thrust, compression test strength 4/5 in LLE and 5/5 in RLE decreased sensation to left L4,5,S1 Extremity Common normals: normal to inspection Right upper extremity: hand and digits Left upper extremity: hand and digits Right lower extremity: hip joint Left lower extremity: knee joint Left knee: palpation (moderate to severe pain ), ROM (limited, crepitus noted. pain with medial/lateral stress testing) and other Other: no pain with internal and external rotation of right hip intermittent locking up of bilateral thumbs, notable joint deformation with enlarged joints Neuro Common normals: oriented x3, CN's II-XII intact bilaterally, moves all extremities, no focal motor deficits, no sensory deficits noted and deep tendon reflexes 2+ bilaterally Sensorium/orientation: alert Gait (neuro): antalgic and assistive device used walker Motor exam: no movement abnormalities noted and strength abnormal Psych Common normals: mental status grossly normal, thought process normal, cooperative, affect normal, speech normal and activity/motor behavior normal Speech: normal speech Thought process: normal thought process Results Additional Findings Additional findings: If on a controlled substance or opioids, I have checked an [place] report on this patient and there are no aberrancies noted in the prescribing history.??If on a controlled substance or opioid a drug screen was completed and reviewed within the last year, and if there has not been a drug screen completed we ordered one today to monitor higher risk, state monitored pain medication use. As part of providing excellent, safe, comprehensive care, the following was completed at our patient's visit: 1. A medication reconciliation and review to ensure accurate knowledge of current/active medications, including asking our patients to inform us about any tegr-gom-eroidhy medications or herbal remedies/nutritional supplements/alternative remedies. 2. A review to specifically ensure our patients have had annual screening for screening for depression, screening for tobacco use, and screening for unhealthy alcohol use. For concerning screenings had a discussion with the patient, provided patient education, and recommended follow-up with primary care provider when appropriate. If patient noted with a risk of falling, they received education on strength, gait, and balance training to prevent future risk of falling. Portions of this note may have been carried over from the previous visit and updated as appropriate. Please note this office utilizes paper charting in addition to the electronic medical record. A list of current medications, vitals, and PMH is available there as the clinical staff outside of myself do not have access to [employer] charting during the clinic day operations. As part of providing quality comprehensive care the current medications, vitals, and PMH were reviewed in the paper chart. Assessment and Plan Assessment and Plan (1) Lumbar stenosis with neurogenic claudication: (2) Sacroiliitis: (3) Chronic, continuous use of opioids: Assessment and Plan: I feel these medications are improving the patient's quality of life and allow them to tolerate activities of daily living as well as participate in recreational activity.? The patient does not report intolerable side effects. The patient is NOT opioid naive and non-pharmacologic and non-opioid treatment has failed to significantly relieve the patient's pain and improve functionality. The patient has a diagnosis that is related to a somatic or visceral pain etiology. ? ?? I reviewed with the patient the potential risks and side effects with the use of? opioid medications including but not limited to respiratory depression,? sedation, and even . I verified the patient has access to naloxone should? these effects occur. I advised the patient to avoid the use of any other? sedation substances including alcohol, THC, and benzodiazepines while? taking opioid medications due to the risk of compounding side effects and? detrimental outcomes. I reviewed the [employer], pain treatment agreement, urine? drug screen, and opioid start talking forms. The patient was advised to let? their family know they had Naloxone in case they would need to administer? the medication.? ?? A drug screen was completed within the last year, and no aberrancies were noted regarding their use of controlled substances. The patient understands they are subject to the terms and conditions of the pain contract that they have signed. ? ?? I have checked an OARRS report on this patient today and there are no aberrancies noted in the prescribing history.? (4) Lumbar degenerative disc disease: (5) Degenerative disc disease, cervical: (6) Cervical radiculopathy: (7) Left knee pain: (8) Myalgia, other site: (9) Bilateral thumb pain: Plan repeat left L4-5 L5-S1 TFESI under fluoroscopy continue current medications, risks vs benefits reviewed defer cervical injections as pain is well controlled, numbness to LUE tolerable f/u after injection
== END 2024-09-19 14:28 | disposition home or self-care (01) ==
PROVIDERS: PCP Family Medicine; Visit Provider Nurse Practitioner
DX: M48.062 Spinal stenosis, lumbar region with neurogenic claudication (principal); M46.1 Sacroiliitis, not elsewhere classified; Z79.891 Long term (current) use of opiate analgesic; M51.369 Other intervertebral disc degeneration, lumbar region without mention of lumbar back pain or lower extremity pain; M54.12 Radiculopathy, cervical region; M25.562 Pain in left knee; M79.18 Myalgia, other site; M79.645 Pain in left finger(s); M79.644 Pain in right finger(s)
CPT/HCPCS: G0463

== ENCOUNTER 2024-09-21 11:12 | Outpatient (OUT) | payer MEDICARE, SELFPAY ==
--- OUTSIDE RECORDS SUMMARY | 2024-07-30 11:00 | XMS_ITS ---
Author Organization [facility] [place] Address [address] [place] [address] Care Team Providers Care Finance Attorney Name Role Phone Bang Rogers Primary Care Provider Allergies Allergen (clinical drug ingredient) Drug/Non Drug Allergy documented on EMR Reaction Allergy Type Onset Date Status Darvon Unknown Drug Allergy Active fluconazole Diflucan Unknown Drug Allergy Activ e pregabalin Lyrica Unknown Drug Allergy Active codeine Codeine Unknown Drug Allergy Active Penicillin Unknown Drug Allergy Active quinine Quinine Unknown Drug Allergy Active REASON FOR VISIT follow up to bilateral arm wounds Medications Medication SIG (Take, Route, Frequency, Duration) Notes Start Date End Date Status HYDROcodone-Acetaminophen 5-325 MG 1 tablet as needed Orally three times daily Active Hyoscyamine Sulfate 0.125 MG 1-2 tabs SL SL every 4 hrs PRN abd pain 03/21/2024 Active Ferrous Sulfate 325 (65 Fe) MG TAKE 1 TABLET BY MOUTH TWICE A DAY FOR 30 DAYS for 90 Active Flaxseed Oil 1000 MG as directed Orally Active Diclofenac Sodium 75 MG TAKE 1 TABLET 2 TIMES DAILYAS NEEDED for 90 days Active Aspirin 81 MG 1 tablet Orally Ever y other day for 30 days Active Caltrate 600+D 600-400 MG-UNIT 1 tablet Orally Twice a day for 30 day(s) Active Cyclobenzaprine HCl 5 MG TAKE 1 TABLET I N THE MORNING AND 2 TABLETS AT BEDTIME DIRECTED for 30 Active Citalopram Hydrobromide 10 MG TAKE 1 TABLET BY MOUTH EVERY DAY for 90 Active Compression Stocking Thigh 20-30mmHg - 10/14/2023 Active Benita Allergy 180 MG 1 tablet Swallow whole with water; do not take with fruit juices. Orally Once a day for 30 day(s) Active Triple Flex 500-400-125 MG 1 tablet with meals Orally twice daily for 30 days Active Tylenol Arthritis Pain 650 MG 2 tablets as needed Orally every 8 hrs Active Saline Aguanga 0.65 % as directed Nasally 07/20/2023 Active Salonpas Pain Relief Patch - as directed Externally Active Prolia 60 MG/ML as directed Subcutaneous Active Ondansetron 4 MG 1 tablet on the tong ue and allow to dissolve Orally qid for 5 days 03/21/2024 Active Pantoprazole Sodium 40 MG TAKE 1 TABLET BY MOUTH EVERY DAY for 90 Active Multivital Active Nitroglycerin 0.4 MG as directed Sublingual Active Melatonin 3 MG 1 tablet at bedtime as needed Orally Once a day for 30 day(s) Active Metoprolol Succinate ER 50 MG take 2 in amd an 1 in evening for 90 days Active Liothyronine Sodium 25 MCG TAKE 1 TABLET ONCE 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 for 90 Active Magnesium 250 MG 1 tablet with a meal Orally Once a day 07/20/2023 Active Levothyroxine Sodium 75 MCG TAKE 1 TABLE T BY MOUTH EVERY DAY for 90 Active Isosorbide Mononitrate ER 30 MG 1 tablet in the morning Oral Once a day for 90 days Active Klor-Con M20 20 MEQ 1 tablet with food Orally twice daily for 30 days 03/22/2024 Active Social History Tobacco Use: Social History Observation Description Date Details (start date - stop date) Never Smoker NA - NA Tobacco Use/Smoking Question Answer Notes Patient is a nonsmoker Problems Problem Type SNOMED Code ICD Code Onset Dates Problem Status W/U Status Risk Notes Problem Laceration of arm, left, subsequent encounter (S41.112D) Active confirmed Vital Signs Blood pressure systolic 122 mm Hg 07/31/19 25 Blood pressure diastolic 74 mm Hg 025 Height 60 in 07/30/2024 Weight 173 lbs 07/30/2024 BMI 33.78 kg/m2 07/30/2024 Encounters Encounter Location Date Provider Diagnosis [facility] [address] [place] [address] 07/30/2024 Bang Hoy Laceration of arm, left, subsequent encounter S41.112D Assessments Encounter Date Diagnosis (ICD Code) Assessment Notes Treatment Notes Treatment Clinical Notes Section Notes 07/30/2024 Laceration of arm, left, subsequent encounter (ICD-10 - S41.112D) Plan Of Treatment No Information Progress Notes * Alexa CORMIER LDOB: 0 (84 yo F)Acc No.[id number]:07/30/2024 Progress Note Patient: Alexa MACDONALD Provider: Aly Rogers ([facility])MD :1940 A ge:84 Y S ex:Female Date:07/30/2024 Address:[address] [place], [place] [id number] Check In:02:49 PM ESTCheck O ut:03:41 PM EST Subjective: * Chief Complaints: * F ollow up to bilateral arm wounds * HPI: G eneral: Left wrist - with healing laceration R foreanme skin tear healinbg. 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 Modified On:05/11/2023U Status:confirmed M47.812 Cervical spondylosis Modified On:04/06/2023U Status:confirmed R41.3 Poor short-term lynette ry Modified On:05/18/2022U Status:confirmed M50.30 Degenerative cervica l disc Modified On:04/06/2023U Status:confirmed 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 Modified On:05/18/2022U Status:confirmed J30.2 Seasonal allergic rh initis Modified On:05/18/2022U Status:confirmed H60.90 External otitis Modified On:05/18/2022U Status:confirmed E03.9 Hypothyroidism Modified On:04/06/2023U Status:confirmed G45.9 TIA (transient ische enrioc attack) Modified On:05/18/2022 Status:confirmed M19.90 Arthritis of both kn ees Modified On:05/18/2022 Status:confirmed M47.896 Other spondylosis, l umbar region Modified On:01/19/2023 Status:confirmed M16.11 Osteoarthritis of ri ght hip Modified On:03/31/2023 Status:confirmed M51.26 Herniated lumbar int ervertebral disc Modified On:05/18/2022 Status:confirmed M54.30 Sciatica Modified On:05/18/2022 Status:confirmed M41.9 Scoliosis Modified On:05/18/2022 Status:confirmed E78.00 Pure hypercholestero lemia, unspecified Modified On:05/18/2022 Status:confirmed I10 Hypertension Modified On:01/19/2023 Status:confirmed M51.9 Disc disorder of lum bar region Modified On:05/18/2022 Status:confirmed E05.90 Hyperthyroidism Modified On:01/19/2023 Status:confirmed E01.0 Thyromegaly Modified On:05/18/2022 Status:confirmed M12.849 Other specific arthr opathies, not elsewhere classified, unspecified hand Modified On:05/18/2022 Status:confirmed J30.9 Allergic rhinitis Modified On:05/18/2022 Status:confirmed M41.86 Other forms of scoli osis, lumbar region Modified On:07/20/2022 Status:confirmed M51.36 Other intervertebral disc degeneration, lumbar region Modified On:08/10/2022 Status:confirmed M51.34 Other intervertebral disc degeneration, thoracic region Modified On:08/10/2022 Status:confirmed I10 BP (high blood press ure) Modified On:04/06/2023 Status:confirmed E03.9 Hypothyroid Modified On:12/08/2022 Status:confirmed M19.90 Arthritis Modified On:08/31/2022 Status:confirmed I25.10 CAD (coronary artery disease) Modified On:08/31/2022 Status:confirmed F41.8 Anxiety and depressi on Modified On:08/31/2022 Status:confirmed I47.1 Supraventricular tac hycardia Modified On:09/24/2022 Status:confirmed E78.5 Hyperlipidemia, unsp ecified Modified On:12/08/2022 Status:confirmed R41.3 Memory loss Modified On:01/19/2023U Status:confirmed G47.30 Sleep apnea Modified On:01/25/2023 Status:confirmed M81.0 Age-related osteopor osis without current pathological fracture Modified On:03/30/2023 Status:confirmed E87.70 Fluid overload Modified On:04/01/2023 Status:confirmed I50.30 CHF (congestive hear t failure), NYHA class I, unspecified failure chronicity, diastolic Modified On:04/06/2023 Status:confirmed E66.9 Obesity, unspecified Modified On:05/11/2023 Status:confirmed Z68.31 Body mass index [BMI ] 31.0-31.9, adult Modified On:05/11/2023 Status:confirmed F03.90 Dementia Modified On:07/20/2023 Status:confirmed R23.3 Easy bruisability Modified On:08/12/2023 Status:confirmed D72.821 Monocytosis Modified On:08/15/2023 Status:confirmed R07.9 Chest pain Modified On:10/14/2023U Status:confirmed I83.10 Venous stasis dermat itis Modified On:10/31/2023U Status:confirmed E03.9 Acquired hypothyroid ism Modified On:11/18/2023U Status:confirmed R89.9 Abnormal laboratory test Modified On:03/23/2024 Status:confirmed S41.112D Laceration of arm, l eft, subsequent encounter Modified On:07/30/2024 Status:confirmed * Medical History: * Surgical History: T ONSILLECTOMY,OVER 12 YRS 1958APPENDECTOMY 1961D&C (multiple) HYSTERECTOMY TOTAL 1997Tumor Left Breast 1964bladder reconstruction Tumor Right Breast Bunionectomy L4-L5 fusion w/discectomy Right Knee Replacement left knee arthroscopy Cholecystectomy cataract-lens implants bladder surgery Trigger Point Inj- Bilateral paralumbar and gluteal Dr. Meza 08/31/2023left L4-5, L5-S1 transforaminal epidural steroid injection Left sacroiliac joint injection Bilateral Sacroiliac Joint Injection 05/28/24 * Hospitalization/Major Diagno stic Procedure: v ertigo 07/2022 * Family History: F ather: , diagnosed with Unspecified essential hypertension. M other: , diagnosed with Unspecified essential hypertension. B rother(s): , diagnosed with Unspecified essential hypertension. S on(s): alive. D eviner(s): alive. 1 brother(s) . 1 son(s) , 1 daughter(s) . . * Social History: T obacco Use: E lectronic Cigarette use C urrent user N o Tobacco Use/Smoking P atient is a n onsmoker * Medications: T akingAllegra Allergy(Fexofenadine HCl) 180 MG Tablet 1 tablet Swallow whole with water; do not take with fruit juices. Orally Once a day Aspirin 81 MG Tablet Chewable 1 tablet Orally Every other day Caltrate 600+D 600-400 MG-UNIT Tablet 1 tablet Orally Twice a day Citalopram Hydrobromide 10 MG Tablet TAKE 1 TABLET BY MOUTH EVERY DAY Compression Stocking Thigh 20-30mmHg - - Cyclobenzaprine HCl 5 MG Tablet TAKE 1 TABLET IN THE MORNING AND 2 TABLETS AT BEDTIME DIRECTED Diclofenac Sodium 75 MG Tablet Delayed Release TAKE 1 TABLET 2 TIMES DAILYAS NEEDED Ferrous Sulfate 325 (65 Fe) MG Tablet TAKE 1 TABLET BY MOUTH TWICE A DAY FOR 30 DAYS Flaxseed Oil 1000 MG Capsule as directed Orally HYDROcodone-Acetaminophen 5-325 MG Tablet 1 tablet as needed Orally three times daily Hyoscyamine Sulfate 0.125 MG Tablet Sublingual 1-2 tabs SL SL every 4 hrs PRN abd pain Isosorbide Mononitrate ER 30 MG Tablet Extended Release 24 Hour 1 tablet in the morning Oral Once a day Klor-Con M20(Potassium Chloride Liza ER) 20 MEQ Tablet Extended Release 1 tablet with food Orally twice daily Levothyroxine Sodium 75 MCG Tablet TAKE 1 TABLET BY MOUTH EVERY DAY Liothyronine Sodium 25 MCG Tablet TAKE 1 TABLET ONCE 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 Magnesium 250 MG Tablet 1 tablet with a meal Orally Once a day Melatonin 3 MG Tablet 1 tablet at bedtime as needed Orally Once a day Metoprolol Succinate ER 50 MG Tablet Extended Release 24 Hour take 2 in amd an 1 in evening Multivital Nitroglycerin 0.4 MG Tablet Sublingual as directed Sublingual Ondansetron 4 MG Tablet Disintegrating 1 tablet on the tongue and allow to dissolve Orally qid Pantoprazole Sodium 40 MG Tablet Delayed Release TAKE 1 TABLET BY MOUTH EVERY DAY Prolia(Denosumab) 60 MG/ML Solution Prefilled Syringe as directed Subcutaneous Saline Aguanga 0.65 % Solution as directed Nasally Salonpas Pain Relief Patch - Pad as directed Externally Triple Flex(Nugypmtcljk-Zpiuqqaomsu-JWZ) 500-400-125 MG Tablet 1 tablet with meals Orally twice daily Tylenol Arthritis Pain 650 MG Tablet Extended Release 2 tablets as needed Orally every 8 hrs Medication List reviewed and reconciled with the patientTaking Benita Allergy(Fexofenadine HCl) 180 MG Tablet 1 tablet Swallow whole with water; do not take with fruit juices. Orally Once a day Taking Aspirin 81 MG Tablet Chewable 1 tablet Orally Every other day Taking Caltrate 600+D 600-400 MG-UNIT Tablet 1 tablet Orally Twice a day Taking Citalopram Hydrobromide 10 MG Tablet TAKE 1 TABLET BY MOUTH EVERY DAY Taking Compression Stocking Thigh 20-30mmHg - - Taking Cyclobenzaprine HCl 5 MG Tablet TAKE 1 TABLET IN THE MORNING AND 2 TABLETS AT BEDTIME DIRECTED Taking Diclofenac Sodium 75 MG Tablet Delayed Release TAKE 1 TABLET 2 TIMES DAILYAS NEEDED Taking Ferrous Sulfate 325 (65 Fe) MG Tablet TAKE 1 TABLET BY MOUTH TWICE A DAY FOR 30 DAYS Taking Flaxseed Oil 1000 MG Capsule as directed Orally Taking HYDROcodone-Acetaminophen 5-325 MG Tablet 1 tablet as needed Orally three times daily Taking Hyoscyamine Sulfate 0.125 MG Tablet Sublingual 1-2 tabs SL SL every 4 hrs PRN abd pain Taking Isosorbide Mononitrate ER 30 MG Tablet Extended Release 24 Hour 1 tablet in the morning Oral Once a day Taking Klor-Con M20(Potassium Chloride Liza ER) 20 MEQ Tablet Extended Release 1 tablet with food Orally twice daily Taking Levothyroxine Sodium 75 MCG Tablet TAKE 1 TABLET BY MOUTH EVERY DAY Taking Liothyronine Sodium 25 MCG Tablet TAKE 1 TABLET ONCE 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 Taking Magnesium 250 MG Tablet 1 tablet with a meal Orally Once a day Taking Melatonin 3 MG Tablet 1 tablet at bedtime as needed Orally Once a day Taking Metoprolol Succinate ER 50 MG Tablet Extended Release 24 Hour take 2 in amd an 1 in evening Taking Multivital Taking Nitroglycerin 0.4 MG Tablet Sublingual as directed Sublingual Taking Ondansetron 4 MG Tablet Disintegrating 1 tablet on the tongue and allow to dissolve Orally qid Taking Pantoprazole Sodium 40 MG Tablet Delayed Release TAKE 1 TABLET BY MOUTH EVERY DAY Taking Prolia(Denosumab) 60 MG/ML Solution Prefilled Syringe as directed Subcutaneous Taking Saline Aguanga 0.65 % Solution as directed Nasally Taking Salonpas Pain Relief Patch - Pad as directed Externally Taking Triple Flex(Tbbazrqevoe-Zfdpuugovzx-YAA) 500-400-125 MG Tablet 1 tablet with meals Orally twice daily Taking Tylenol Arthritis Pain 650 MG Tablet Extended Release 2 tablets as needed Orally every 8 hrs Medication List reviewed and reconciled with the patient * Allergies: P enicillinCodeineDarvonLyricaDiflucanQuinineno[Allergies Verified] Objective: * Vitals: W t:173lbs, Ht: 60 in, BP:122/74mm Hg, BMI:33.78Index, Ht-cm: 152.4 cm, Wt-k.47 kg. * Examination: A bdomen Exam:: L eft wrist - with healing laceration R foreanme skin tear healinbg. Assessment: * Assessment: 1. L aceration of arm, left, subsequent encounter - S41.112D (Primary) Plan: * Treatment: * Procedure Codes: * Preventive Medicine: Screenings/Counseling: B ID ACTION PLAN Above Normal BMI Follow-up D ietary management education, guidance, and counseling * * Sign off status: Completed Visit Status: C HK (Check Out) true * Provider: Aly Rogers ([facility])MD Date: 0 07/30/2024 Generated for [place] arvizu/Neetu/Endy on: 09/21/2024 11:19 AM EDT History and Physical Notes * HPI (History of Present Illness) Category Sub-Category Detail Notes Category Not es General Left wrist - with healing laceration R foreanme skin tear healinbg Examination Category Sub-Category Detail Notes Category Not es Abdomen Exam: Left wrist - with healing laceration R foreanme skin tear healinbg
--- OUTSIDE RECORDS SUMMARY | 2024-09-20 06:58 | XMS_ITS ---
Author Organization [facility] [place] Address [address] [place] [address] Care Team Providers Care Jboss Architect Name Role Phone JeremiasgavinoBang Primary Care Provider [phone] REASON FOR VISIT urine Encounters Encounter Location Date Provider Diagnosis [facility] [address] [place] [address] 09/20/2024 Bang Sue Abnormal laboratory test R89.9 [...] Alexa CORMIER LDOB: 0 (84 yo F)Acc No.[id number]:09/20/2024 Patient: Jadyn BENEDICTAlexa :1940 A ge:84 Y S ex:Female Address:[address] [place] [id number] Subjective: * Chief Complaints: * U rine [...] Date: Generated for Camden arvizu/Neetu/Endy on: 0 09/21/2024 11:18 AM EDT
--- OUTSIDE RECORDS SUMMARY | 2024-09-21 11:19 | XMS_ITS | Clinical Summary ---
Author Organization [facility] Address [address] [place] [address] Phone Care Team Providers Care Internal Review And Audit Compliance Name Role Phone Unavailable Primary Care Provider [...]
--- OUTSIDE RECORDS SUMMARY | 2024-09-21 11:19 | XMS_ITS | Patient Health Record ---
Author Organization [facility] in [place] Address [address] [place] [address] Care Team Providers Care Natural History Collections Curator Name Role Phone Bang Rogers Primary Care Provider Judi Wiseman Unavailable [phone] Allergies Allergen (clinical drug ingredient) Drug/Non Drug Allergy documented on EMR Reaction Allergy Type Onset Date Status Darvon Unknown Drug Allergy Active fluconazole Diflucan Unknown Drug Allergy Activ e pregabalin Lyrica Unknown Drug Allergy Active codeine Codeine Unknown Drug Allergy Active Penicillin Unknown Drug Allergy Active quinine Quinine Unknown Drug Allergy Active Results Component Value Reference Range Notes CBC AUTO DIFF Reviewed date:10/24/2023 11:51:00 AM Interpretation: Performing Lab: Notes/Report: [facility] , White Blood Count 6.1 4.0-11.0 10 3/uL Red Blood Count 3.66 4.20-5.40 10 6/uL Hemoglobin 11.9 12.0-16.0 g/dL Hematocrit 34.8 36.0-48.0 % Mean Corpuscular Volume 95.1 81.0-99.0 fL Mean Corpuscular Hemoglobin 32.5 26.7-34.0 pg Mean Corpuscular HGB Conc 34.2 29.9-35.2 g/dL Red Cell Distribution Width 13.1 11.0-15.0 % Platelet Count 257 150-450 10 3/uL Mean Platelet Volume 8.7 9.5-13.5 fL Neutrophils Percent Auto 75.3 43.0-75.0 % Lymphocytes Percent Auto 10.5 20.5-60.0 % Monocytes Percent Auto 12.7 1.7-12.0 % Eosinophils Percent Auto 0.7 0.9-7.0 % Basophils Percent Auto 0.3 0.2-2.0 % Immature Granulocytes Pct Auto 0.5 0.0-0.5 % Neutrophils Absolute Auto 4.6 1.4-6.5 10 3/uL Lymphocytes Absolute Auto 0.6 1.2-3.8 10 3/uL Monocytes Absolute Auto 0.8 0.3-0.8 10 3/uL Eosinophils Absolute Auto 0.0 0.0-0.7 10 3/uL Basophils Absolute Auto 0.0 0.0-0.1 10 3/uL Immature Granulocytes Abs Auto 0.03 0.00-0.03 10 3/uL Performing Lab: see note - [facility] Prothrombin Time INR Reviewed date:10/24/2023 11:51:00 AM Interpretation: Performing Lab: Notes/Report: [facility] , Prothrombin Time 9.8 9.0-11.6 sec INR <0.93 DESIRED INR: 2.0-3.0 CONDITIONS NOT LISTED BELOW 2.5-3.5 FOR PROSTHETIC HEART VALVE REPLACEMENT 2.5-3.5 RECURRENT THROMBOSIS Performing Lab: see note [facility] Urine Culture, Routine Reviewed date:01/05/2024 09:22:56 PM Interpretation: Performing Lab: Notes/Report: [facility] , Urine Culture, Routine See Below For Report Urine Culture, Routine Urine Culture, Routine Culture shows les s than 10,000 colony forming units of bacteria per Urine Culture, Routine Urine Culture, Routine milliliter of uri ne. This colony count is not generally considered Urine Culture, Routine Urine Culture, Routine to be clinically significant. Urine Culture, Routine Urine Culture, Routine Performed at: [facility] Urine Culture, Routine Urine Culture, Routine [address] [place], [place] [id number] Urine Culture, Routine Urine Culture, Routine Body Joiner: Kirk Ruelas PhD, Phone: [phone] Urine Culture, Routine Performing Lab: see note - [facility] SEE REPORT - Legal Executive Assistant Id information not found for OBX-specific lip cutter legend Manual Differential Reviewed date:03/23/2024 09:20:24 AM Interpretation: Performing Lab: Notes/Report: [facility] , Segmented Neutrophils % Manual 74.0 43.0-75.0 Lymphocytes Percent Manual 16.0 20.5-60.0 % Monocytes Percent Manual 8.0 1.7-12.0 % Eosinophils Percent Manual 2.0 0.9-7.0 % Basophils Percent Manual 0.0 0.2-2.0 % Segmented Neut Absolute Manual 3.18 1.4-6.5 10 3/uL Lymphocytes Absolute Manual 0.68 1.20-3.80 10 3/uL Monocytes Absolute Manual 0.34 0.30-0.80 10 3/uL Eosinophils Absolute Manual 0.08 0.00-0.70 10 3/uL Basophils Abs Manual 0.00 0.00-0.10 1 0 3/uL Performing Lab: see note ML - [facility] LB CT cervical spine wo con Reviewed date:07/23/2024 08:48:43 PM Interpretation: Performing Lab: Notes/Report: Source Facility: [place] [address] CT Scan Report Signed Patient: ALEXA DELGADO MR#: [id number] : 1940 Acct:[id number] Age/Sex: 84 / F ADM Date: 07/23/24 Loc: ER Attending Dr: Ordering Physician: Pauilne Ferrell Date of Service: 07/23/24 Procedure(s): CT cervical spine wo con Accession Number(s): [id number] cc: Galina Rogers M.D. [place] [address] Patient Name: ALEXA DELGADO MRN: [facility]:[id number] date: 1940 Sex: F Assigned Patient Location: ED.MAIN Current Patient Location: ED.MAIN Accession/Order Number: [id number] Exam Date: 07/23/2024 14:38 Report Date: 07/23/2024 14:42 At the request of: PAULINE FERRELL Procedure: CT cervical spine wo con CT cervical spine wo con 07/23/2024 2:11 PM SIGN AND SYMPTOMS: Fall, left shoulder pain and left forearm pain, right knee pain TECHNIQUE: Multi detector CT axial slices of the cervical spine were obtained without IV contrast. Volumetric acquisition sagittal, coronal, and 3-D reconstructions were performed and reviewed. CT was performed with one or more of the following dose reduction techniques: Automated exposure control, adjustment of the mA and/or kV according to patient size, or use of iterative reconstruction technique. COMPARISON: 11/29/2020. FINDINGS: There is preservation of the vertebral body heights and intervertebral discs. No fractures or dislocations are seen. There is 4 mm of anterolisthesis of C7 upon T1. There is accompanying facet hypertrophy. The facets are partially fused at C3-C4. The craniocervical junction is within normal limits. There is severe disc height loss at C5-C6 and C6-C7. The prevertebral soft tissues are within normal limits. The paraspinous soft tissues are within normal limits. There is scarring in the lung apices. Atherosclerotic changes are noted in the carotid bifurcations. CT/CT cervical spine wo con IMPRESSION: No fracture. Degenerative changes are noted as above with 4 mm of anterolisthesis of C7 upon T1 secondary to facet hypertrophy. This is unchanged when compared to the previous MRI. Impression dictated by: Yovany Patel M.D. 07/23/2024 2:42 PM Dictation Location: [place] [address] Electronically authenticated by: [id number] Y Date: 07/23/2024 14:42 Dictated By: Yovany Patel M.D. Signed By: 07/23/24 1445 DD/ 144 TD/TT: [employer]: [place] [address] CT Scan Report Signed Patient: SYEDA DELGADO MR#: [id number] : 1940 Acct:[id number] Age/Sex: 84 / F ADM Date: 07/23/24 Loc: ER Attending Dr: Ordering Physician: Pauline Ferrell Date of Service: 07/23/24 Procedure(s): CT cer vical spine wo con Accession Number(s): [id number] cc: Galina Rogers M.D. [place] [address] Patient Name: ALEXA DELGADO MRN: [id number] date: 1940 Sex: F Assigned Patient Location: ED.MAIN Current Patient Loca tion: ED.MAIN Accession/Order Numb er: [id number] Exam Date: 07/23/2024 14:38 Report Date: 07/23/2024 14:42 At the request of: PAULINE FERRELL Procedure: CT cervic al spine wo con CT cervical spine wo con 07/23/2024 2:11 PM SIGN AND SYMPTOMS: F all, left shoulder pain and left forearm pain, right knee pain TECHNIQUE: Multi det dayanna CT axial slices of the cervical spine were obtained without IV contrast. Volumetric acquisition sagittal, coronal, and 3-D reconstructions were performed and reviewed. CT was performed with one or more of the following dos e reduction techniques: Automated exposure control, adjustment of the mA and/or kV according to patient size, or use of iterative reconstruction technique. COMPARISON: 11/29/2020. FINDINGS: There is preservatio n of the vertebral body heights and intervertebral discs. No fractures or dislocations are seen. There is 4 mm of anterolisthesis of C7 upon T1. There is accompanying facet hypertrophy. The facets are partially fused at C3-C4. The craniocervical junction is within normal limits. There is severe disc heigh t loss at C5-C6 and C6-C7. The prevertebral soft tissues are within normal li mits. The paraspinous soft tissues are within normal limits. There is sca rring in the lung apices. Atherosclerotic changes are noted in the carotid bifurcations. C T/CT cervical spine wo con IMPRESSION: No fracture. Degenerative changes are noted as above with 4 mm of anterolisthesis of C7 upon T1 secondary to facet hypertrophy. This is unchanged when compared to the previous MRI. Impression dictated by: Yovany Patel M.D. 07/23/2024 2:42 PM Dictation Location: [place] [address] Electronically authenticated by: [id number] Y Date: 07/23/2024 14:42 Dictated By: Yovany Patel M.D. Signed By: 07/23/24 1445 DD/ 1442 TD/TT: [employer]: JENNA garcia LT 2V Reviewed date:07/23/2024 08:48:43 PM Interpretation: Performing Lab: Notes/Report: Source Facility: [place] [address] [place] [address] XRay Report Signed Patient: ALEXA DELGADO MR#: [id number] : 1940 Acct:[id number] Age/Sex: 84 / F ADM Date: 07/23/24 Loc: ER Attending Dr: Ordering Physician: Pauline Ferrell Date of Service: 07/23/24 Procedure(s): XR forearm LT 2V Accession Number(s): [id number] cc: Galina Rogers M.D.; Pauline Ferrell [place] [address] Patient Name: ALEXA DELGADO MRN: [id number] date: 1940 Sex: F Assigned Patient Location: ED.MAIN Current Patient Location: ED.MAIN Accession/Order Number: [id number] Exam Date: 07/23/2024 14:47 Report Date: 07/23/2024 14:47 At the request of: PAULINE FERRELL Procedure: XR forearm LT 2V XR forearm LT 2V 07/23/2024 2:11 PM SIGNS AND SYMPTOMS: Fall, left forearm pain PROTOCOL: Frontal and lateral radiographs of the left forearm COMPARISON: None FINDINGS: The bones are in anatomic alignment. There is no evidence of acute displaced fracture. 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 Degenerative changes are noted at the first carpometacarpal junction. XR/XR forearm LT 2V IMPRESSION: No fracture or dislocation. Impression dictated by: Yovany Patel M.D. 07/23/2024 2:47 PM Dictation Location: [place] [address] Electronically authenticated by: [id number] Y Date: 07/23/2024 14:47 Dictated By: Yovany Patel M.D. Signed By: 07/23/24 1450 DD/ 1447 TD/TT: [employer]: [place] [address] XRay Report Signed Patient: SYEDA DELGADO MR#: [id number] : 1940 Acct:[id number] Age/Sex: 84 / F ADM Date: 07/23/24 Loc: ER Attending Dr: Ordering Physician: Pauline Ferrell Date of Service: 07/23/24 Procedure(s): XR for earm LT 2V Accession Number(s): [id number] cc: Galina Rogers M.D. ; Pauline Ferrell [place] [address] Patient Name: ALEXA DELGADO MRN: [id number] date: 1940 Sex: F Assigned Patient Location: ED.MAIN Current Patient Loca tion: ED.MAIN Accession/Order Numb er: [id number] Exam Date: 07/23/2024 14:47 Report Date: 07/23/2024 14:47 At the request of: APULINE FERRELL Procedure: XR forear m LT 2V XR forearm LT 2V 07/23 2:11 PM SIGNS AND SYMPTOMS: Fall, left forearm pain PROTOCOL: Frontal an d lateral radiographs of the left forearm COMPARISON: None FINDINGS: The bones are in ryan tomic alignment. There is no evidence of acute displaced fracture. There is chondrocalcinosis of the triangular fibrocartilage suggesting underlyin g CPPD. Degenerative changes are noted at the first carpometacarpal junction. X R/XR forearm LT 2V IMPRESSION: No fracture or dislocation. Impression dictated by: Yovany Patel M.D. 07/23/2024 2:47 PM Dictation Location: [place] [address] Electronically authenticated by: [id number] Y Date: 07/23/2024 14:47 Dictated By: Yovany Patel M.D. Signed By: 07/23/24 1450 DD/ 1447 TD/TT: [employer]: XR shoulder LT min 2V Reviewed date:07/23/2024 08:48:43 PM Interpretation: Performing Lab: Notes/Report: Source Facility: [place] [address] XRay Report Signed Patient: ALEXA DELGADO MR#: [id number] : 1940 Acct:[id number] Age/Sex: 84 / F ADM Date: 07/23/24 Loc: ER Attending Dr: Ordering Physician: Pauline Ferrell Date of Service: 07/23/24 Procedure(s): XR shoulder LT min 2V Accession Number(s): [id number] cc: Galina Rogers M.D.; Pauline Ferrell [address] [address] Patient Name: ALEXA DELGADO MRN: [id number] date: 1940 Sex: F Assigned Patient Location: ED.MAIN Current Patient Location: ED.MAIN Accession/Order Number: [id number] Exam Date: 07/23/2024 14:47 Report Date: 07/23/2024 14:48 At the request of: PAULINE FERRELL Procedure: XR shoulder LT min 2V XR shoulder LT min 2V 07/23/2024 2:11 PM SIGNS AND SYMPTOMS: Pain, fall PROTOCOL: Frontal, Grashey, and scapular Y views of the left shoulder COMPARISON: None FINDINGS: Mild hypertrophic changes are noted in the acromioclavicular joint. There is mild narrowing of the left glenohumeral joint. There is calcification along the rotator interval suggesting calcific tendinosis. There is subcortical cystic change in the greater tuberosity of the left humeral head. Degenerative changes are noted in the cervical spine and thoracic spine atherosclerotic changes are noted in the thoracic aorta. XR/XR shoulder LT min 2V IMPRESSION: No fracture or dislocation. Degenerative changes are noted in the left shoulder with findings suggesting underlying calcific tendinosis. Impression dictated by: Yovany Patel M.D. 07/23/2024 2:48 PM Dictation Location: [place] [address] Electronically authenticated by: [id number] Y Date: 07/23/2024 14:48 Dictated By: Yovany Patel M.D. Signed By: 07/23/24 1451 DD/ 1448 TD/TT: [employer]: The [address] [address] XRay Report Signed Patient: SYEDA DELGADO MR#: [id number] : 1940 Acct:[id number] Age/Sex: 84 / F ADM Date: 07/23/24 Loc: ER Attending Dr: Ordering Physician: Pauline Ferrell Date of Service: 07/23/24 Procedure(s): XR felix ulder LT min 2V Accession Number(s): [id number] cc: Galina Rogers M.D. ; Pauline Ferrell [address] [address] Patient Name: ALEXA DELGADO MRN: [id number] date: 1940 Sex: F Assigned Patient Location: ED.MAIN Current Patient Loca tion: ED.MAIN Accession/Order Numb er: [id number] Exam Date: 07/23/2024 14:47 Report Date: 07/23/2024 14:48 At the request of: PAULINE FERRELL Procedure: XR should er LT min 2V XR shoulder LT min 2 V 07/23/2024 2:11 PM SIGNS AND SYMPTOMS: Pain, fall PROTOCOL: Frontal, Grashey, and scapular Y views of the left shoulder COMPARISON: None FINDINGS: Mild hypertrophic ch anges are noted in the acromioclavicular joint. There is mild narrowing of th e left glenohumeral joint. There is calcification along the rotator interval suggesting calcific tendinosis. There is subcortical cystic change in the greater tuberosity of the left humeral head. Degenerative changes are noted in the cervical spine and thoracic spine atherosclerotic main ges are noted in the thoracic aorta. X R/XR shoulder LT min 2V IMPRESSION: No fracture or dislocation. Degenerative changes are noted in the left shoulder with findings suggesting underlying calcific tendinosis. Impression dictated by: Yovany Patel M.D. 07/23/2024 2:48 PM Dictation Location: [place] [address] Electronically authenticated by: [id number] Y Date: 07/23/2024 14:48 Dictated By: Yovany Patel M.D. Signed By: 07/23/24 1450 DD/ 47 TD/TT: [employer]: XR KNEE RT 3V Reviewed date:07/23/2024 08:48:43 PM Interpretation: Performing Lab: Notes/Report: Source Facility: [address] [address] XRay Report Signed Patient: ALEXA DELGADO MR#: [id number] : 1940 Acct:[id number] Age/Sex: 84 / F ADM Date: 07/23/24 Loc: ER Attending Dr: Ordering Physician: Pauline Ferrell Date of Service: 07/23/24 Procedure(s): XR knee RT 3V Accession Number(s): [id number] cc: Galina Rogers M.D.; Pauline Ferrell [place] [address] Patient Name: ALEXA DELGADO MRN: [id number] date: 1940 Sex: F Assigned Patient Location: ED.MAIN Current Patient Location: ED.MAIN Accession/Order Number: [id number] Exam Date: 07/23/2024 14:46 Report Date: 07/23/2024 14:46 At the request of: PAULINE FERRELL Procedure: XR knee RT 3V XR knee RT 3V 07/23/2024 2:11 PM SIGNS AND SYMPTOMS: Pain, fall PROTOCOL: Frontal, lateral, and oblique radiographs of the left knee COMPARISON: None FINDINGS: 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 There is no evidence of fracture or hardware complication. No joint effusion or soft tissue swelling. XR/XR knee RT 3V IMPRESSION: No fracture. Impression dictated by: Yovany Patel M.D. 07/23/2024 2:46 PM Dictation Location: [place] [address] Electronically authenticated by: [id number] Y Date: 07/23/2024 14:46 Dictated By: Yovany Patel M.D. Signed By: 07/23/24 1449 DD/ 45 TD/TT: [employer]: [place] [address] XRay Report Signed Patient: YSEDA DELGADO MR#: [id number] : 1940 Acct:[id number] Age/Sex: 84 / F ADM Date: 07/23/24 Loc: ER Attending Dr: Ordering Physician: Pauline Ferrell Date of Service: 07/23/24 Procedure(s): XR kne e RT 3V Accession Number(s): [id number] cc: Galina Rogers M.D. 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 There is no evidence of fracture or hardware complication. No joint effusion or soft tissue swelling. X R/XR knee RT 3V IMPRESSION: No fracture. Impression dictated by: Yovany Patel M.D. 07/23/2024 2:46 PM Dictation Location: [place] [address] Electronically authenticated by: [id number] Y Date: 07/23/2024 14:46 Dictated By: Yovany Patel M.D. Signed By: 07/23/24 1449 DD/ 1446 TD/TT: [employer]: JACINTO PELVIS KARL SOTO Reviewed date:07/23/2024 08:48:43 PM Interpretation: Performing Lab: Notes/Report: Source Facility: [place] [address] CT Scan Report Signed Patient: ALEXA DELGADO MR#: [id number] : 1940 Acct:[id number] Age/Sex: 84 / F ADM Date: 07/23/24 Loc: ER Attending Dr: Ordering Physician: Pauline Ferrell Date of Service: 07/23/24 Procedure(s): CT pelvis wo con Accession Number(s): [id number] cc: Galina Rogers M.D. [place] [id number] Patient Name: ALEXA DELGADO MRN: [id number] date: 1940 Sex: F Assigned Patient Location: ED.MAIN Current Patient Location: ED.MAIN Accession/Order Number: [id number] Exam Date: 07/23/2024 14:42 Report Date: 07/23/2024 14:46 At the request of: PAULINE FERRELL Procedure: CT pelvis wo con CT pelvis wo con 07/23/2024 2:11 PM SIGNS AND SYMPTOMS: Fall, pain in right knee TECHNIQUE: Multidetector ct axial images of the abdomen and pelvis were obtained without IV contrast. Multiplanar reformats were performed and reviewed to further define anatomy and possible pathology. CT was performed with one or more of the following dose reduction techniques: Automated exposure control, adjustment of the mA and/or kV according to patient size, or use of iterative reconstruction technique. COMPARISON: None. FINDINGS: Reproductive Organs: No pelvic masses. Ureters: Within normal limits. Bladder: Within normal limits. Bowel: Normal caliber. Mesenteric Lymph Nodes: No enlarged mesenteric lymph nodes. Peritoneum: No ascites or free air, no fluid collection. Vessels: Atherosclerotic changes are noted in the abdominal aorta. Retroperitoneum: Within normal limits. Abdominal Wall: Within normal limits. Bones: There is severe disc height loss at L3-L4 and L4-5 with fusion across the L5-S1 intervertebral disc. Degenerative changes are noted in the sacroiliac joints. Degenerative changes are noted in the hips. There is evidence of a remote fracture of the left superior-inferior pubic rami. There is enthesophyte formation along the ischial tuberosities. CT/CT pelvis wo con IMPRESSION: No fracture or dislocation. Degenerative changes are noted as above. Impression dictated by: Yovany Patel M.D. 07/23/2024 2:46 PM Dictation Location: [place] [address] Electronically authenticated by: [id number] Y Date: 07/23/2024 14:46 Dictated By: Yovany Patel M.D. Signed By: 07/23/24 1448 DD/ 1446 TD/TT: [employer]: [place] [address] CT Scan Report Signed Patient: SYEDA DELGADO MR#: [id number] : 1940 Acct:[id number] Age/Sex: 84 / F ADM Date: 07/23/24 Loc: ER Attending Dr: Ordering Physician: Pauline Ferrell Date of Service: 07/23/24 Procedure(s): CT pel vis wo con Accession Number(s): [id number] cc: Galina Rogers M.D. [address] [address] Patient Name: ALEXA DELGADO MRN: [id number] date: 1940 Sex: F Assigned Patient Location: ED.MAIN Current Patient Loca tion: ED.MAIN Accession/Order Numb er: [id number] Exam Date: 07/23/2024 14:42 Report Date: 07/23/2024 14:46 At the request of: PAULINE FERRELL Procedure: CT pelvis wo con CT pelvis wo con 07/23 2:11 PM SIGNS AND SYMPTOMS: Fall, pain in right knee TECHNIQUE: Multidete ctor ct axial images of the abdomen and pelvis were obtained without IV contrast. Multiplanar reformats were performed and reviewed to further define anatomy and possible pathology. CT was performed with one or more of the following dose reduction techniques: Automated exposure control, adjustment of the mA and/or kV according to patient size, or use of iterative reconstruction technique. COMPARISON: None. FINDINGS: Reproductive Organs: No pelvic masses. Ureters: Within norm al limits. Bladder: Within norm al limits. Bowel: Normal caliber. Mesenteric Lymph Nod es: No enlarged mesenteric lymph nodes. Peritoneum: No ascit es or free air, no fluid collection. Vessels: Atheroscler otic changes are noted in the abdominal aorta. Retroperitoneum: Wit hin normal limits. Abdominal Wall: With in normal limits. Bones: There is ester re disc height loss at L3-L4 and L4-5 with fusion across the L5-S1 interverte bral disc. Degenerative changes are noted in the sacroiliac joints. Degenerative changes are noted in the hips. There is evidence of a remote fracture of the left superior-inferior pubic rami. There is enthesophyte form ation along the ischial tuberosities. C T/CT pelvis wo con IMPRESSION: No fracture or dislocation. Degenerative changes are noted as above. Impression dictated by: Yovany Patel M.D. 07/23/2024 2:46 PM Dictation Location: [place] [address] Electronically authenticated by: [id number] Y Date: 07/23/2024 14:46 Dictated By: Yovany Patel M.D. Signed By: 07/23/24 1448 DD/ 1446 TD/TT: [employer]: PROF Andrade(COMP METB) Reviewed date:04/04/2024 12:57:35 PM Interpretation: Performing Lab: Notes/Report: [facility] , Sodium 136 136-145 mmol/L Potassium 4.6 3.5-5.1 mmol/L Chloride 98 98-107 mmol/L Carbon Dioxide 31.7 21.0-32.0 mmol/L Anion Gap 10.9 Glucose 105 74-106 mg/dL Blood Urea Nitrogen 17.0 7.0-18.0 mg/dL Creatinine 1.11 0.55-1.02 mg/dL Estimated GFR ( Maddy 57 >=60 mL/min/1.73m 2 Estimated GFR (Non- Britney 47 >=60 mL/min/1.73m 2 BUN Creatinine Ratio 15.3 Calcium 9.3 8.5-10.1 mg/dL Bilirubin Total 0.3 0.2-1.0 mg/dL Aspartate Amino Transferase 21 15-37 U/L Alanine Aminotransferase 24 14-59 U/L Alkaline Phosphatase 53 46-116 U/L Total Protein 6.6 6.4-8.2 g/dL Albumin Level 3.4 3.4-5.0 g/dL Globulin 3.2 Albumin Globulin Ratio 1.1 Performing Lab: see note ML - [facility] LB PROF 14(COMP METB) Reviewed date:03/23/2024 09:20:24 AM Interpretation: Performing Lab: Notes/Report: [facility] , Sodium 138 136-145 mmol/L Potassium 2.8 3.5-5.1 mmol/L RESULTS ATKINSON D TO JUAN RAMON CARDOZO PLUSH WEAVER AT 1553 Chloride 100 98-107 mmol/L Carbon Dioxide 29.6 21.0-32.0 mmol/L Anion Gap 11.2 Glucose 96 74-106 mg/dL Blood Urea Nitrogen 22.0 7.0-18.0 mg/dL Creatinine 1.20 0.55-1.02 mg/dL Estimated GFR ( Maddy 52 >=60 mL/min/1.73m 2 Estimated GFR (Non- Britney 43 >=60 mL/min/1.73m 2 BUN Creatinine Ratio 18.3 Calcium 7.8 8.5-10.1 mg/dL Bilirubin Total 0.4 0.2-1.0 mg/dL Aspartate Amino Transferase 26 15-37 U/L Alanine Aminotransferase 24 14-59 U/L Alkaline Phosphatase 48 46-116 U/L Total Protein 6.4 6.4-8.2 g/dL Albumin Level 3.3 3.4-5.0 g/dL Globulin 3.1 Albumin Globulin Ratio 1.1 Performing Lab: see note ML - [facility] LB CBC AUTO DIFF Reviewed date:03/23/2024 09:20:24 AM Interpretation: Performing Lab: Notes/Report: The [facility] , White Blood Count 4.3 4.0-11.0 10 3/uL Red Blood Count 3.74 4.20-5.40 10 6/uL Hemoglobin 11.8 12.0-16.0 g/dL Hematocrit 35.8 36.0-48.0 % Mean Corpuscular Volume 95.7 81.0-99.0 fL Mean Corpuscular Hemoglobin 31.6 26.7-34.0 pg Mean Corpuscular HGB Conc 33.0 29.9-35.2 g/dL Red Cell Distribution Width 13.1 11.0-15.0 % Platelet Count 242 150-450 10 3/uL Mean Platelet Volume 9.2 9.5-13.5 fL Performing Lab: see note - [facility] LB UA RANDOM W or MICROSCOPIC Reviewed date:01/04/2024 07:32:57 PM Interpretation: Performing Lab: Notes/Report: [facility] , Color Urine LT. YELLOW YELLOW Clarity Urine CLEAR CLEAR Specific Jenison Urine 1.010 1.005-1.025 pH Urine 8.0 5.0-9.0 Protein Urine NEGATIVE NEG/TRACE mg/dL Glucose Urine UA NEGATIVE NEGATIVE mg/dL Bilirubin Urine NEGATIVE NEGATIVE Ketones Urine NEGATIVE NEGATIVE mg/dL Blood Urine TRACE-I NEGATIVE Nitrite Urine NEGATIVE NEGATIVE Urobilinogen Urine 0.2 0.2-1.0 EU/dL Leukocyte Esterase Urine NEGATIVE NEGATIVE WBC Urine 0-2 NONE SEEN #/HPF RBC Urine 2-5 0-2 #/HPF Bacteria Urine NONE SEEN NONE SEEN #/HPF Mucus Urine NONE SEEN NONE SEEN Squamous Epithelial Cell Urine NONE SEEN NONE/RARE #/LPF Transitional Epi Cells Urine RARE NONE SEEN #/LPF Crystals Seen? None Seen None Seen #/HPF Cast Seen? NONE SEEN NONE SEEN #/LPF Performing Lab: see note ML - [facility] LB MM screening mammo BI Reviewed date:12/05/2023 08:02:13 PM Interpretation: Performing Lab: Notes/Report: Source Facility: [place] [address] Mammography Report Signed Patient: ALEXA DELGADO MR#: [id number] : 1940 Acct:[id number] Age/Sex: 83 / F ADM Date: 12/02/23 Loc: MAMMO Attending Dr: Galina Rogers M.D. Ordering Physician: Galina Rogers M.D. Results: Date of Service: 12/02/23 Follow Up: Procedure(s): MM screening mammo BI Accession Number(s): [id number] cc: Galina Rogers M.D. Patient Name: ALEXA DELGADO MR#: [id number] : 1940 Exam Date: 12/02/2023 Ordering Doctor: DR Galina Rogers . RADIOLOGY REPORT PROCEDURE: MM SCREENING MAMMO BI COMPARISON: MG MAMM SCREEN 3D CLEMENCIA CAD, 11/25/2021. MM SCREENING MAMMO BI, 11/26/2022. INDICATIONS: Screening Calculator Name NCI Breast Cancer Risk Assessment Tool 5 Year Breast Cancer Risk 1.90% Lifetime Breast Cancer Risk 2.10% Personal Breast Cancer No Personal Ovarian Cancer No Treatments None Family Cancers None LOCATION: [facility] BREAST COMPOSITION: There are scattered areas of fibroglandular density. FINDINGS: DIAGNOSTIC CATEGORY 2--BENIGN FINDING. [...] PALPABLE LUMP SHOULD BE BIOPSIED. Dictated by: Nando Suarez MD on 12/05/2023 at 09:12 Approved by: Nando Suarez MD on 12/05/2023 at 09:13 Dictated By: Nando Suarez M.D. Signed By: 12/05/23914 DD/ 2 TD/TT: [employer]: [place] [address] Mammography Report Signed Patient: SYEDA DELGADO MR#: [id number] : 1940 Acct:[id number] Age/Sex: 83 / F ADM Date: 12/02/23 Loc: MAMMO Attending Dr: Keo Rogers M.D. Ordering Physician: Galina Rogers M.D. Results: Date of Service: 01/14 Follow Up: Procedure(s): MM screening mammo BI Accession Number(s): [id number] cc: Galina Rogers M.D. Patient Name: ALEXA DELGADO MR#: [id number] : 1940 Exam Date: 12/02/2023 Ordering Doctor: DR Galina Rogers . RADIOLOGY REPORT PROCEDURE: MM SCREEN ING MAMMO BI COMPARISON: MG MAMM SCREEN 3D CLEMENCIA CAD, 11/25/2021. MM SCREENING MAMMO BI, 11/26/2022. INDICATIONS: Screening Calculator Name NCI Breast Cancer Risk Assessment Tool 5 Year Breast Cancer Risk 1.90% Lifetime Breast Canc er Risk 2.10% Personal Breast Cancer No Personal Ovarian Can cer No Treatments None Family Cancers None LOCATION: [facility] BREAST COMPOSITION: There are scattered areas of fibroglandular density. FINDINGS: DIAGNOSTIC CATEGORY 2--BENIGN FINDING. NO CHANGE FROM COMPARISON. Scattered benign-appearing calcifications are present. Scattered benign-appearing lym ph nodes are present. RIGHT BREAST: No significant suspicious finding. LEFT BREAST: No significant suspicious finding. RECOMMENDATIONS: ROUTINE MAMMOGRAM AN D CLINICAL EVALUATION IN 12 MONTHS. PLEASE NOTE: A NUPUR L MAMMOGRAM DOES NOT EXCLUDE THE POSSIBILITY OF BREAST CANCER. A CLINICALLY SUSPICIOUS PALPABLE LUMP SHOULD BE BIOPSIED. Dictated by: Nando de león MD on 12/05/2023 at 09:12 Approved by: Nando de león MD on 12/05/2023 at 09:13 Dictated By: Asa Suarez M.D. Signed By: 12/05/23914 DD/ 2 TD/TT: [employer]: VC EXT Venous Reflux CLEMENCIA LMT D Reviewed date:11/11/2023 04:02:48 PM Interpretation: Performing Lab: Notes/Report: Source Facility: [place] [address] Vein Report Signed Patient: ALEXA DELGADO MR#: [id number] : 1940 Acct:[id number] Age/Sex: 83 / F ADM Date: 11/11/23 Loc: VC Attending Dr: Galina Rogers M.D. Ordering Physician: Galina Rogers M.D. Date of Service: 11/11/23 Procedure(s): VC EXT Venous Reflux CLEMENCIA LMTD Accession Number(s): [id number] cc: Galina Rogers M.D. Patient Name: ALEXA DELGADO MR#: [id number] : 1940 Exam Date: 11/11/2023 Ordering Doctor: DR GALINA ROGERS . RADIOLOGY REPORT PROCEDURE: VC EXT VENOUS REFLUX CLEMENCIA LMTD COMPARISON: None. INDICATIONS: R60.0 TECHNIQUE: Duplex imaging of the lower extremity to assess the deep and superficial venous system for the presence of deep or superficial venous incompetence and to document the location and severity of disease. The study includes evaluation of the great saphenous vein (GSV), anterior accessory saphenous vein (AASV) and small saphenous vein (SSV). Patient scanned in reverse Trendelenburg and standing. FINDINGS: RIGHT LOWER EXTREMITY: Saphenofemoral Junction Reflux: Yes 6.4mm 2.0 sec GSV: Diam (mm) Reflux/ Time (sec) Proximal Thigh 4.4 Yes 1.0 Mid Thigh 3.9 Yes 0.5 Distal Thigh 2.8 No Prox Calf 2.5 No Mid Calf 1.6 Saphenopopliteal Junction Reflux: 5.5mm Yes 1.7 SSV: Proximal Calf 6.3 Yes 1.2 Mid Calf 3.2 No AASV: Proximal Thigh 2.4 No Mid Thigh 1.3 No Distal Thigh Thrombi: No acute or chronic thrombus visualized Compressibility: Normal Flow: Normal Preforator: Mid/med calf 2.2mm with 1.0s reflux. Tech Note: Incompetent SSV. Patent varicose vein mid/med calf 2.6mm with 1.2s reflux. Patent varicose vein mid/med thigh 3.1mm with 0s reflux. LEFT LOWER EXTREMITY: Saphenofemoral Junction Reflux: Yes 6.2 mm 1.9 sec GSV: Diam (mm) Reflux/Time (sec) Proximal Thigh 3.9 Yes 0.8 Mid Thigh 4.3 No Distal Thigh 3.0 Yes 1.4 Prox Calf 2.4 Yes 0.7 Mid Calf 1.8 Yes 0.6 Saphenopopliteal Junction Relux: 3.4 mm No SSV: Proximal Calf 2.7 No Mid Calf 1.4 No AASV: Proximal Thigh 4.6 No Mid Thigh 3.0 No Distal Thigh Thrombi: No acute or chronic thrombus visualized Compressibility: Normal Flow: Normal Relocation Specialist: Dist/med calf 3.3mm with 0s reflux. Tech Note: Patent varicose vein prox/med calf 2.8mm with 2.2s reflux. Patent varicose vein mid/med thigh 2.1mm with 0.7s reflux. CONCLUSION: 1. Mild bilateral great saphenous vein venous insufficiency without dilatation 2. Mild right small saphenous vein venous insufficiency with mild dilatation Dictated by: Nando Suarez MD on 11/11/2023 at 14:23 Approved by: Nando Suarez MD on 11/11/2023 at 14:24 Dictated By: Nando Suarez M.D. Signed By: 11/11/23 1425 DD/ 1424 TD/TT: [employer]: The [address] [address] Vein Report Signed Patient: SYEDA DELGADO MR#: [id number] : 1940 Acct:[id number] Age/Sex: 83 / F ADM Date: 11/11/23 Loc: VC Attending Dr: Keo Rogers M.D. Ordering Physician: Galina Rogers M.D. Date of Service: 11/11/23 Procedure(s): VC EXT Venous Reflux CLEMENCIA LMTD Accession Number(s): [id number] cc: Galina Rogers M.D. Patient Name: ALEXA DELGADO MR#: [id number] : 1940 Exam Date: 11/11/2023 Ordering Doctor: DR GALINA ROGERS . RADIOLOGY REPORT PROCEDURE: VC EXT VE NOUS REFLUX CLEMENCIA LMTD COMPARISON: None. INDICATIONS: R60.0 TECHNIQUE: Duplex im aging of the lower extremity to assess the deep and superficial venous s ystem for the presence of deep or superficial venous incompetence and to document the location and severity of disease. The study includes evaluation of the great saphenous vein (GSV), anterior accessory saphenous vein (AASV ) and small saphenous vein (SSV). Patient scanned in reverse Trendelenbur g and standing. FINDINGS: RIGHT LOWER EXTREMITY: Saphenofemoral Junct ion Reflux: Yes 6.4mm 2.0 sec GSV: Diam (mm) Reflu x/ Time (sec) Proximal Thigh 4.4 Yes 1.0 Mid Thigh 3.9 Yes 0.5 Distal Thigh 2.8 No Prox Calf 2.5 No Mid Calf 1.6 Saphenopopliteal Morgan ction Reflux: 5.5mm Yes 1.7 SSV: Proximal Calf 6.3 Yes 1.2 Mid Calf 3.2 No AASV: Proximal Thigh 2.4 No Mid Thigh 1.3 No Distal Thigh Thrombi: No acute or chronic thrombus visualized Compressibility: Normal Flow: Normal Preforator: Mid/med calf 2.2mm w ith 1.0s reflux. Tech Note: Incompete nt SSV. Patent varicose vein mid/med calf 2.6mm with 1.2s reflux. Patent varic ose vein mid/med thigh 3.1mm with 0s reflux. LEFT LOWER EXTREMITY: Saphenofemoral Junct ion Reflux: Yes 6.2 mm 1.9 sec GSV: Diam (mm) Reflux/Time (sec) Proximal Thigh 3.9 Y es 0.8 Mid Thigh 4.3 No Distal Thigh 3.0 Yes 1.4 Prox Calf 2.4 Yes 0.7 Mid Calf 1.8 Yes 0.6 Saphenopopliteal Morgan ction Relux: 3.4 mm No SSV: Proximal Calf 2.7 No Mid Calf 1.4 No AASV: Proximal Thigh 4.6 No Mid Thigh 3.0 No Distal Thigh Thrombi: No acute o r chronic thrombus visualized Compressibility: Normal Flow: Normal Relocation Specialist: Dist/med calf 3.3mm with 0s reflux. Tech Note: Patent varicose vein prox/med calf 2.8mm with 2.2s reflux. Patent varicose vein mid/me d thigh 2.1mm with 0.7s reflux. CONCLUSION: 1. Mild bilateral gr eat saphenous vein venous insufficiency without dilatation 2. Mild right small saphenous vein venous insufficiency with mild dilatation Dictated by: Nando de león MD on 11/11/2023 at 14:23 Approved by: Nando de león MD on 11/11/2023 at 14:24 Dictated By: Asa Suarez M.D. Signed By: 11/11/23 1425 DD/ 1424 TD/TT: [employer]: LIZ jai perf SPECT rest str Reviewed date:10/25/2023 08:17:57 PM Interpretation: Performing Lab: Notes/Report: Source Facility: [facility]-[address] [place] [address] [place] [address] Nuclear Medicine Report Signed Patient: ALEXA DELGADO MR#: [id number] : 1940 Acct:[id number] Age/Sex: 83 / F ADM Date: 10/25/23 Loc: LIZ Attending Dr: Galina Rogers M.D. Ordering Physician: Galina Rogers M.D. Date of Service: 10/25/23 Procedure(s): NM jai perf SPECT rest str Accession Number(s): [id number] cc: Galina Rogers M.D. Patient Name: ALEXA DELGADO MR#: [id number] : 1940 Exam Date: 10/25/2023 Ordering Doctor: DR Galina Rogers . RADIOLOGY REPORT PROCEDURE: NM JAI PERF SPECT REST STR COMPARISON: None. INDICATIONS: CHEST PAIN TECHNIQUE: Exam Description: Stress/Rest one day protocol gated SPECT Rest Imagin.9 mCi Tc-99m Cardiolite IV on 10/25/2023 Stress Imaging 29.4 mCi Tc-99m Cardiolite IV on 10/25/2023 Exercise Protocol: 0.4 mg Lexiscan given IV Heart Rate (bpm): Rest: 72 Max: 104 PMHR: 76 Blood Pressure: Rest: 130/72 Max: 148/88 Symptoms: Rest and peak stress ECG findings were normal and the exercise portion of the study was normal per attending physician Dr. Castañeda . For more details please see separate cardiac stress test report. FINDINGS: QUALITY OF STUDY: Excellent. PERFUSION DEFECT: None. LOCATION: N/A SIZE: N/A. SEVERITY: N/A. TYPE: N/A. WALL MOTION: LV SIZE: Normal. 65 mL. TID / TCD: None; 0.8 LVEF: Normal. Calculated EF 72%. SUMMARY: Myocardial perfusion imaging study is NORMAL. CONCLUSION: 1. Normal nuclear medicine myocardial perfusion scan. Dictated by: Erick Mullen M.D. on 10/25/2023 at 15:46 Approved by: Erick Mullen M.D. on 10/25/2023 at 15:47 Dictated By: Erick Mullen M.D. Signed By: 10/25/23 1548 DD/ 1547 TD/TT: [employer]: The [address] [address] Nuclear Medicine Report Signed Patient: SYEDA DELGADO MR#: [id number] : 1940 Acct:[id number] Age/Sex: 83 / F ADM Date: 10/25/23 Loc: LIZ Attending Dr: Keo Rogers M.D. Ordering Physician: Galina Rogers M.D. Date of Service: 10/25/23 Procedure(s): NM jai perf SPECT rest str Accession Number(s): [id number] cc: Galina Rogers M.D. Patient Name: ALEXA DELGADO MR#: [id number] : 1940 Exam Date: 10/25/2023 Ordering Doctor: DR Galina Rogers . RADIOLOGY REPORT PROCEDURE: NM JAI PE RF SPECT REST STR COMPARISON: None. INDICATIONS: CHEST PAIN TECHNIQUE: Exam Description: Stress/Rest one day protocol gated SPECT Rest Imagin.9 mC i Tc-99m Cardiolite IV on 10/25/2023 Stress Imaging 29.4 mCi Tc-99m Cardiolite IV on 10/25/2023 Exercise Protocol: 0 .4 mg Lexiscan given IV Heart Rate (bpm): Re st: 72 Max: 104 PMHR: 76 Blood Pressure: Rest : 130/72 Max: 148/88 Symptoms: Rest and peak stress ECG findings were normal and the exercise portion of the study was normal per attending physician Dr. Castañeda . For more details please see separate cardiac stress test report. FINDINGS: QUALITY OF STUDY: Excellent. PERFUSION DEFECT: None. LOCATION: N/A SIZE: N/A. SEVERITY: N/A. TYPE: N/A. WALL MOTION: LV SIZE: Normal. 65 mL. TID / TCD: None; 0.8 LVEF: Normal. Calcul ated EF 72%. SUMMARY: Myocardial perfusion imaging study is NORMAL. CONCLUSION: 1. Normal nuclear medicine myocardial perfusion scan. Dictated by: Erick Mullen M.D. on 10/25/2023 at 15:46 Approved by: Erick Mullen M.D. on 10/25/2023 at 15:47 Dictated By: Erick Mullen M.D. Signed By: 10/25/23 1548 DD/ 1547 TD/TT: [employer]: Troponin I High Sensitivity Reviewed date:10/13/2023 07:17:11 PM Interpretation: Performing Lab: Notes/Report: [facility] , Troponin I High Sensitivity 13.9 4.0-51.3 pg/mL CUT-OFF POINTS HAVE BEEN ESTABLISHED BASED ON THE FOURTH UNIVERSAL DEFINITION OF MYOCARDIAL INFARCTION. THE UPPER REFERENCE LIMIT (URL) OF TROPONIN, DEFINED THE 99TH PERCENTILE OF cTnI DISTRIBUTION IN A REFERENCE POPULATION, HAS BEEN CONFIRMED THE DECISION THRESHOLD FOR [place] DIAGNOSIS. 99TH PERCENTILE = 51.4 PG/ML NOTE: HIGH-SENSITIVITY TROPONIN ASSAY IS NOT INTENDED TO BE USED IN ISOLATION BUT SHOULD BE INTERPRETED IN CONJUNCTION WITH OTHER DIAGNOSTIC AND CLINICAL INFORMATION. Performing Lab: see note ML - [facility] LB CT angio chest Reviewed date:10/13/2023 07:17:11 PM Interpretation: Performing Lab: Notes/Report: Source Facility: [place] [address] CT Scan Report Signed Patient: ALEXA DELGADO MR#: [id number] : 1940 Acct:[id number] Age/Sex: 83 / F ADM Date: 10/12/23 Loc: ER Attending Dr: Ordering Physician: Fabio De La Rosa Date of Service: 10/12/23 Procedure(s): CT angio chest Accession Number(s): [id number] cc: Galina Rogers M.D. [place] [id number] Patient Name: ALEXA DELGADO MRN: [id number] date: 1940 Sex: F Assigned Patient Location: ER Current Patient Location: ER Accession/Order Number: [id number] Exam Date: 10/12/2023 23:30 Report Date: 10/13/2023 00:18 At the request of: FABIO DE LA ROSA Procedure: CT angio chest CTA OF THE CHEST WITH CONTRAST: 10/12/2023 11:30 PM EDT HISTORY: Elevated d-dimer. Chest pain x2 hours. TECHNIQUE: Initially, thin section noncontrast images through portions of the chest were obtained for the purpose of establishing proper bolus timing of contrast. Subsequently, thin section axial CT images were obtained through the chest after intravenous administration of 100 mL Omnipaque 350 IV without event. To optimally assess the thoracic vasculature, the original axial data was used to create 3D volume rendered, multiplanar reformatted and/or maximum intensity projection images in various planes. The axial and reformatted data were reviewed for this report. On separate workstation, 3-D reconstructions obtained of the aorta and pulmonary arteries. Dose reduction techniques were achieved by using automated exposure control and/or adjustment of mA and/or kV according to patient size and/or use of iterative reconstruction technique. COMPARISON: CT abdomen and pelvis with contrast 04/04/2022. And CT abdomen and pelvis 04/01/2017 FINDINGS: Bolus opacification of the pulmonary arteries was adequate for purposes of diagnosis. There is no central, lobar, or segmental pulmonary arterial filling defect to suggest pulmonary embolus. There is some mild interstitial prominence at lung bases, some of which may be chronic. Difficult to exclude acute on chronic interstitial process. Some of these changes are new from remote studies. There is some mild vascular congestion. Correlate for mild fluid overload and interstitial edema. No focal lung consolidation. No mass or nodule. No pleural effusion or pneumothorax. Lungs otherwise clear. No hilar or mediastinal lymphadenopathy. Chambers are within normal limits. No pericardial fluid. Normal caliber thoracic aorta. Scattered atherosclerotic calcific plaque throughout the wall of the aorta. No dissection. Scans of the upper abdomen again demonstrate multiple scattered hepatic cysts with large stable chronic septated cyst within the left hepatic lobe with some calcifications throughout septa. This was present and unchanged dating back to 04/01/2017 study therefore statistically benign measuring up to 7.5 cm transverse and 4.3 cm AP. There is a another large lobular cystic lesion within the posterior hepatic dome measuring 2.6 cm by almost 4 cm. This has mean attenuation values of less than 21 Hounsfield units. This was also present on 04/01/2017 and only slightly increased in size. Numerous other scattered cysts are partially seen throughout the liver also present previously. No acute upper abdominal findings. There is no body wall mass. There is no destructive osseous process. No axillary adenopathy. CT/CT angio chest IMPRESSION: 1. Negative for acute PE. 2. Borderline mild vascular congestion and mild bibasilar interstitial prominence. Could reflect some mild acute fluid overload and interstitial edema versus some chronic bibasilar interstitial disease. Correlate with symptoms. May explain elevated d-dimer from mild CHF. 3. Redemonstration of multiple complex and simple hepatic cysts which were present dating back to CT abdomen from 04/01/2017, therefore statistically benign. Electronically authenticated by: SAMM MCMAHAN Date: 10/13/2023 00:18 Dictated By: Samm Mcmahan D.O. Signed By: 10/13/23 0021 DD/ 0018 TD/TT: [employer]: [address] [address] [address] Scan Report Signed Patient: SYEDA DELGADO MR#: [id number] : 1940 Acct:[id number] Age/Sex: 83 / F ADM Date: 10/12/23 Loc: ER Attending Dr: Ordering Physician: Fabio De La Rosa Date of Service: 10/12/23 Procedure(s): CT ang io chest Accession Number(s): [id number] cc: Galina Rogers M.D. [address] [address] Patient Name: ALEXA DELGADO MRN: [id number] date: 1940 Sex: F Assigned Patient Location: ER Current Patient Loca tion: ER Accession/Order Numb er: [id number] Exam Date: 10/12/2023 23:30 Report Date: 10/13/2023 00:18 At the request of: FABIO DE LA ROSA Procedure: CT angio chest CTA OF THE CHEST WIT H CONTRAST: 10/12/2023 11:30 PM EDT HISTORY: Elevated d-dimer. Chest pain x2 hours. TECHNIQUE: Initially , thin section noncontrast images through portions of the chest were obtained for the purpose of establishing proper bolus timing of contrast. Subsequent ly, thin section axial CT images were obtained through the chest after intraven ous administration of 100 mL Omnipaque 350 IV without event. To optimally assess the thoracic vasculature, the original axial data was used to create 3 D volume rendered, multiplanar reformatted and/or maximum intensity projection images in various planes. The axial and reformatted data were reviewed for th is report. On separate workstat ion, 3-D reconstructions obtained of the aorta and pulmonary arteries. Dose reduction techn iques were achieved by using automated exposure control and/or adjustment of mA and/or kV according to patient size and/or use of iterative reconstruc tion technique. COMPARISON: CT abdom en and pelvis with contrast 04/04/2022. And CT abdomen and pelvis 04/01/2017 FINDINGS: Bolus opacification of the pulmonary arteries was adequate for purposes of diagnosis. There is no central, lobar, or segmental pulmonary arterial filling defect to suggest pulmonary embolus. There is some mild interstitial prominence at lung bases, some of which may be chronic. Difficult t o exclude acute on chronic interstitial process. Some of these changes are ne w from remote studies. There is some mild vascular congestion. Correlat e for mild fluid overload and interstitial edema. No focal lung consolidation. No mass or nodule. No pleural effusion or pneumothorax. Lungs otherwise clear. No hilar or mediasti nal lymphadenopathy. Chambers are within normal limits. No pericardial fluid. Normal caliber thora cic aorta. Scattered atherosclerotic calcific plaque throughout the wall of the aorta. No dissection. Scans of the upper abdomen again demonstrate multiple scattered hepatic cysts with large stable ch ronic septated cyst within the left hepatic lobe with some calcifications throu ghout septa. This was present and unchanged dating back to 04/01/2017 study there fore statistically benign measuring up to 7.5 cm transverse and 4.3 cm AP. There is a another large lobular cystic lesion within the posterior hepatic do me measuring 2.6 cm by almost 4 cm. This has mean attenuation values o f less than 21 Hounsfield units. This was also present on 04/01/2017 and only slightly increased in size. Numerous other scattered cysts are partially seen throughout the liver also present previously. No acute upper abdom inal findings. There is no body wall mass. There is no destructive osseous process. No axillary adenopathy. C T/CT angio chest IMPRESSION: 1. Negative for acute PE. 2. Borderline mild vascular congestion and mild bibasilar interstitial prominence. Could re flect some mild acute fluid overload and interstitial edema versus some chronic bibasilar interstitial disease. Correlate with symptoms. May explain elevated d-dimer from mild CHF. 3. Redemonstration o f multiple complex and simple hepatic cysts which were present dating back to CT abdomen from 04/01/2017, therefore statistically benign. Electronically authenticated by: SAMM MCMAHAN Date: 10/13/2023 00:18 Dictated By: Samm Mcmahan D.O. Signed By: 10/13/23 0021 DD/ 0018 TD/TT: [employer]: JESSICA echo doppler complete Reviewed date:10/13/2023 07:17:11 PM Interpretation: Performing Lab: Notes/Report: Source Facility: [facility]-[address] [place] [address] Cardiology Report Signed Patient: ALEXA DELGADO MR#: [id number] : 1940 Acct:[id number] Age/Sex: 83 / F ADM Date: 10/12/23 Loc: MS 230-[address]: Galina Rogers M.D. Ordering Physician: Galina Rogers M.D. Date of Service: 10/13/23 Procedure(s): JESSICA echo doppler complete Accession Number(s): [id number] cc: Galina Rogers M.D. Patient Name: ALEXA DELGADO MR#: [id number] : 1940 Exam Date: 10/13/2023 Ordering Doctor: DR Galina Rogers . ECHOCARDIOGRAM REPORT PROCEDURE: CA ECHO DOPPLER COMPLETE INDICATIONS: Chest pain COMPARISON: None. DESCRIPTION: COMPLETE ECHOCARDIOGRAM Real-time transthoracic echocardiography with 2D, M-mode, spectral and color flow Doppler performed. QUALITY: Technical quality was good. LEFT VENTRICLE: Normal chamber size. Moderate left ventricular hypertrophy. LV EF: Global left ventricular systolic function is normal. Visual estimation of left ventricular ejection fraction is 60-65%. No obvious wall motion abnormalities. DIASTOLIC: Normal diastolic function. ATRIAL SEPTUM: Inadequately seen. LEFT ATRIUM: Normal chamber size. RIGHT ATRIUM: Normal chamber size. RIGHT VENTRICLE: Normal chamber size. Normal right ventricular systolic function. TRICUSPID VALVE: Normal mobility and thickness. Mild regurgitation. Mild pulmonary hypertension. RVSP 35mmHg MITRAL VALVE: Normal mobility and thickness. No evidence of mitral valve stenosis. There is no mitral annular calcification. Mild mitral regurgitation. AORTIC VALVE: Normal trileaflet appearance. No visible sclerosis. Normal leaflet mobility. No evidence of aortic valve stenosis. No aortic regurgitation. AORTIC ROOT: Normal diameter and appearance. PULMONIC VALVE: Normal thickness and mobility. No stenosis. Trivial regurgitation. PERICARDIUM: Anterior free space; trivial effusion versus fat pad IVC: Collapses with inspirations. Normal size. CONCLUSION: 1. Global left ventricular systolic function is normal; visually estimated ejection fraction is 60 to 65% 2. Normal right ventricular size and systolic function 3. Normal diastolic function 4. Moderately increased left ventricular wall thickness 5. Mild tricuspid regurgitation 6. Mildly elevated right ventricular systolic pressure; RVSP 35 mmHg 7. Mild mitral regurgitation 8. Anterior free space; trivial effusion versus fat pad Adult Echocardiography Procedure Report Left Ventricle LVEDD (3.7 - 5.6 cm): 3.72 cm LVESD (2.2 - 4.0 cm): 2.47 cm LVIVS thickness (0.6 - 1.2 cm): 1.61 cm LVPW thickness (0.5 - 1.0 cm): 1.36 cm e': 0.11 m/s E - e': 4.19 LVOT Max Gradient: 3.60 mm[Hg], 3.85 mm[Hg] LVOT Area (cm2): 0.97 m/s Peak Velocity (LVOT): 0.95 m/s, 0.98 m/s Mean Velocity (LVOT): 0.67 m/s LVOT Diameter 1.84 cm Left Ventricular Ejection Fraction: 66.80 % Left Atrium LA Volume Index (2D A2C): 33.81 ml/m2 Left Atrium Systolic Dimension: 3.23 cm Mitral Valve MV E to A Ratio: 0.60 Mitral Valve A-Wave Peak Velocity: 0.76 m/s Mitral Valve E-Wave Peak Velocity: 0.46 m/s Right Ventricle RV Internal Diastolic Dimension: 2.91 cm Aorta AO Root Diam: 3.01 cm Ascending Ao Diam: 2.47 cm Aortic Valve AoV Area (Peak Duncan): 2.00 cm2, 1.93 cm2, 2.08 cm2 AoV Area (VTI): 1.92 cm2, 1.91 cm2, 1.93 cm2 Peak Velocity(Antegrade Flow): 1.31 m/s, 1.26 m/s Peak Gradient(Antegrade Flow): 6.88 mm[Hg], 6.32 mm[Hg] Mean Velocity(Antegrade Flow): 0.88 m/s, 0.87 m/s Mean Gradient(Antegrade Flow): 3.58 mm[Hg], 3.49 mm[Hg] Velocity Time Integral: 26.33 cm, 25.97 cm Tricuspid Valve Peak Velocity (Regurgitant Flow): 2.51 m/s, 2.84 m/s, 2.63 m/s Pulmonic Valve Mean Gradient: 2.89 mm[Hg], 2.35 mm[Hg], 2.47 mm[Hg] Mean Velocity: 0.80 m/s, 0.71 m/s, 0.72 m/s Peak Velocity: 1.18 m/s Peak Gradient: 5.93 mm[Hg], 5.59 mm[Hg], 5.32 mm[Hg] Right Atrium Right Atrium Systolic Pressure: 34.53 ml, 34.53 ml Dictated by: Raz Luis M.D. on 10/13/2023 at 17:00 Approved by: Raz Luis M.D. on 10/13/2023 at 17:03 Dictated By: Raz Luis M.D. Signed By: 10/13/231704 DD/ 02 TD/TT: [employer]: [place] [address] Cardiology Report Signed Patient: SYEDA DELGADO MR#: [id number] : 1940 Acct:[id number] Age/Sex: 83 / F ADM Date: 10/12/23 Loc: MS 230-[address]: Keo Rogers M.D. Ordering Physician: Galina Rogers M.D. Date of Service: 10/13/23 Procedure(s): CA ech o doppler complete Accession Number(s): [id number] cc: Galina Rogers M.D. Patient Name: ALEXA DELGADO MR#: [id number] : 1940 Exam Date: 10/13/2023 Ordering Doctor: DR Galina Rogers . ECHOCARDIOGRAM REPORT PROCEDURE: CA ECHO DOPPLER COMPLETE INDICATIONS: Chest pain COMPARISON: None. DESCRIPTION: COMPLET E ECHOCARDIOGRAM Real-time transthoracic echocardiography wit h 2D, M-mode, spectral and color flow Doppler performed. QUALITY: Technical quality was good. LEFT VENTRICLE: Norm al chamber size. Moderate left ventricular hypertrophy. LV EF: Global left ventricular systolic function is normal. Visual estimation of left ventricular ejection fraction is 60-65%. No obvious wall motion abnormalities. DIASTOLIC: Normal diastolic function. ATRIAL SEPTUM: Inadequately seen. LEFT ATRIUM: Normal chamber size. RIGHT ATRIUM: Normal chamber size. RIGHT VENTRICLE: Nor mal chamber size. Normal right ventricular systolic function. TRICUSPID VALVE: Nor mal mobility and thickness. Mild regurgitation. Mild pulmonary hypertensi on. RVSP 35mmHg MITRAL VALVE: Normal mobility and thickness. No evidence of mitral valve stenosis. There is n o mitral annular calcification. Mild mitral regurgitation. AORTIC VALVE: Normal trileaflet appearance. No visible sclerosis. Normal leaflet mobility. No evidence of aortic valve stenosis. No aortic regurgitation. AORTIC ROOT: Normal diameter and appearance. PULMONIC VALVE: Norm al thickness and mobility. No stenosis. Trivial regurgitation. PERICARDIUM: Anterio r free space; trivial effusion versus fat pad IVC: Collapses with inspirations. Normal size. CONCLUSION: 1. Global left ventricular systolic function is normal; visually estimated ejection fraction is 60 to 65% 2. Normal right ventricular size and systolic function 3. Normal diastolic function 4. Moderately increa sed left ventricular wall thickness 5. Mild tricuspid regurgitation 6. Mildly elevated r ight ventricular systolic pressure; RVSP 35 mmHg 7. Mild mitral regurgitation 8. Anterior free spa ce; trivial effusion versus fat pad Adult Echocardiograp hy Procedure Report Left Ventricle LVEDD (3.7 - 5.6 cm) : 3.72 cm LVESD (2.2 - 4.0 cm) : 2.47 cm LVIVS thickness (0.6 - 1.2 cm): 1.61 cm LVPW thickness (0.5 - 1.0 cm): 1.36 cm e': 0.11 m/s E - e': 4.19 LVOT Max Gradient: 3 .60 mm[Hg], 3.85 mm[Hg] LVOT Area (cm2): 0.97 m/s Peak Velocity (LVOT) : 0.95 m/s, 0.98 m/s Mean Velocity (LVOT) : 0.67 m/s LVOT Diameter 1.84 cm Left Ventricular Eje ction Fraction: 66.80 % Left Atrium LA Volume Index (2D A2C): 33.81 ml/m2 Left Atrium Systolic Dimension: 3.23 cm Mitral Valve MV E to A Ratio: 0.60 Mitral Valve A-Wave Peak Velocity: 0.76 m/s Mitral Valve E-Wave Peak Velocity: 0.46 m/s Right Ventricle RV Internal Diastoli c Dimension: 2.91 cm Aorta AO Root Diam: 3.01 cm Ascending Ao Diam: 2 .47 cm Aortic Valve AoV Area (Peak Duncan): 2.00 cm2, 1.93 cm2, 2.08 cm2 AoV Area (VTI): 1.92 cm2, 1.91 cm2, 1.93 cm2 Peak Velocity(Antegr robin Flow): 1.31 m/s, 1.26 m/s Peak Gradient(Antegr robin Flow): 6.88 mm[Hg], 6.32 mm[Hg] Mean Velocity(Antegr robin Flow): 0.88 m/s, 0.87 m/s Mean Gradient(Antegr robin Flow): 3.58 mm[Hg], 3.49 mm[Hg] Velocity Time Integr al: 26.33 cm, 25.97 cm Tricuspid Valve Peak Velocity (Regurgitant Flow): 2.51 m/s, 2.84 m/s, 2.63 m/s Pulmonic Valve Mean Gradient: 2.89 mm[Hg], 2.35 mm[Hg], 2.47 mm[Hg] Mean Velocity: 0.80 m/s, 0.71 m/s, 0.72 m/s Peak Velocity: 1.18 m/s Peak Gradient: 5.93 mm[Hg], 5.59 mm[Hg], 5.32 mm[Hg] Right Atrium Right Atrium Systoli c Pressure: 34.53 ml, 34.53 ml Dictated by: Raz Luis M.D. on 10/13/2023 at 17:00 Approved by: Raz Luis M.D. on 10/13/2023 at 17:03 Dictated By: Raz Luis M.D. Signed By: 10/13/23 1705 DD/ 1703 TD/TT: [employer]: Troponin I High Sensitivity Reviewed date:10/13/2023 07:17:11 PM Interpretation: Performing Lab: Notes/Report: [facility] , Troponin I High Sensitivity 21.2 4.0-51.3 pg/mL CUT-OFF POINTS HAVE BEEN ESTABLISHED BASED ON THE FOURTH UNIVERSAL DEFINITION OF MYOCARDIAL INFARCTION. THE UPPER REFERENCE LIMIT (URL) OF TROPONIN, DEFINED THE 99TH PERCENTILE OF cTnI DISTRIBUTION IN A REFERENCE POPULATION, HAS BEEN CONFIRMED THE DECISION THRESHOLD FOR [place] DIAGNOSIS. 99TH PERCENTILE = 51.4 PG/ML NOTE: HIGH-SENSITIVITY TROPONIN ASSAY IS NOT INTENDED TO BE USED IN ISOLATION BUT SHOULD BE INTERPRETED IN CONJUNCTION WITH OTHER DIAGNOSTIC AND CLINICAL INFORMATION. Performing Lab: see note ML - [facility] CBC no Diff (Hemogram) Reviewed date:10/13/2023 07:17:11 PM Interpretation: Performing Lab: Notes/Report: [facility] , White Blood Count 5.4 4.0-11.0 10 3/uL Red Blood Count 3.91 4.20-5.40 10 6/uL Hemoglobin 12.5 12.0-16.0 g/dL Hematocrit 38.4 36.0-48.0 % Mean Corpuscular Volume 98.2 81.0-99.0 fL Mean Corpuscular Hemoglobin 32.0 26.7-34.0 pg Mean Corpuscular HGB Conc 32.6 29.9-35.2 g/dL Red Cell Distribution Width 13.2 11.0-15.0 % Platelet Count 249 150-450 10 3/uL Mean Platelet Volume 8.8 9.5-13.5 fL Performing Lab: see note ML - [facility] TSH Reviewed date:10/13/2023 07:17:11 PM Interpretation: Performing Lab: Notes/Report: [facility] , Thyroid Stimulating Hormone 0.032 0.358-3.740 uIU/mL Performing Lab: see note [facility] LB PROF CHEM 8 (BAS METB) Reviewed date:10/13/2023 07:17:11 PM Interpretation: Performing Lab: Notes/Report: [facility] , Sodium 134 136-145 mmol/L Potassium 4.0 3.5-5.1 mmol/L Chloride 98 98-107 mmol/L Carbon Dioxide 28.0 21.0-32.0 mmol/L Anion Gap 12.0 Glucose 102 74-106 mg/dL Blood Urea Nitrogen 21.0 7.0-18.0 mg/dL Creatinine 0.87 0.55-1.02 mg/dL Estimated GFR ( Maddy >60 >=60 Estimated GFR (Non- Britney >60 >=60 BUN Creatinine Ratio 24.1 Calcium 9.0 8.5-10.1 mg/dL Performing Lab: see note ML - [facility] LB LIPID PROFILE Reviewed date:10/13/2023 07:17:11 PM Interpretation: Performing Lab: Notes/Report: [facility] , Triglycerides 64 <=150 mg/dL Cholesterol 198 <=200 mg/dL HDL Cholesterol 77 40-60 mg/dL > or =60 mg/dl - LOW CARDIOVASCULAR RISK <40 mg/dl - HIGH CARDIOVASCULAR RISK LDL Cholesterol Calculated 109.0 <100 mg/dl OPTIMAL 100-129 mg/dl NEAR OR ABOVE OPTIMAL 130-159 mg/dl BORDERLINE HIGH 160-189 mg/dl HIGH >190 mg/dl VERY HIGH VLDL CHOLESTEROL 12.8 Chol HDL Ratio 2.6 3.3 - 4.4 LOW RISK 4.4 - 7.1 AVERAGE RISK 7.1 - 11.0 MODERATE RISK >11.0 HIGH RISK Performing Lab: see note ML - [facility] GLYCOHEMOGLOBIN A1C Reviewed date:10/13/2023 07:17:11 PM Interpretation: Performing Lab: Notes/Report: [facility] , Glycohemoglobin A1C 5.2 4.5-6.2 % ADA RECOMMENDED LIMIT 4.0 - 6.0 ADA THERAPEUTIC TARGET < 7.0 ACTION SUGGESTED > 7.0 Estimated Average Glucose 103 Performing Lab: see note ML - [facility] LB BNP Reviewed date:10/18/2023 03:44:55 PM Interpretation: Performing Lab: Notes/Report: [facility] , NT Pro B Type Natriuretic Pept 425.0 <=1800.0 pg/mL Performing Lab: see note - [facility] LB XR chest 1V Reviewed date:10/13/2023 07:17:11 PM Interpretation: Performing Lab: Notes/Report: Source Facility: [place] [address] [place] [address] XRay Report Signed Patient: ALEXA DELGADO MR#: [id number] : 1940 Acct:[id number] Age/Sex: 83 / F ADM Date: 10/12/23 Loc: ER Attending Dr: Ordering Physician: Fabio De La Rosa Date of Service: 10/12/23 Procedure(s): XR chest 1V Accession Number(s): [id number] cc: Fabio De La Rosa; Galina Rogers M.D. [address] [address] Patient Name: ALEXA DELGADO MRN: [id number] date: 1940 Sex: F Assigned Patient Location: ER Current Patient Location: ER Accession/Order Number: [id number] Exam Date: 10/12/2023 22:07 Report Date: 10/12/2023 22:58 At the request of: FABIO DE LA ROSA Procedure: XR chest 1V EXAM: XR chest 1V CLINICAL INDICATION: chest pain TECHNIQUE: Portable frontal semi-erect view of the chest. COMPARISON: 08/09/2022 FINDINGS: Lines and tubes: None. Lungs: No convincing focal infiltrates. No pleural effusion or pneumothorax. Heart: Cardiac and mediastinal contours are unremarkable. No overt pulmonary vascular congestion. Osseous structures: No acute abnormalities. XR/XR chest 1V IMPRESSION: No acute cardiopulmonary process. Electronically authenticated by: BHAVIN GALVEZ Date: 10/12/2023 22:58 Dictated By: Bhavin Galvez M.D. Signed By: 10/12/232299 DD/ 57 TD/TT: [employer]: [place] [address] XRay Report Signed Patient: SYEDA DELGADO MR#: [id number] : 1940 Acct:[id number] Age/Sex: 83 / F ADM Date: 10/12/23 Loc: ER Attending Dr: Ordering Physician: Fabio De La Rosa Date of Service: 10/12/23 Procedure(s): XR chest 1V Accession Number(s): [id number] cc: Fabio De La Rosa; Galina Rogers M.D. [address] [id number] Patient Name: ALEXA DELGADO MRN: [id number] date: 1940 Sex: F Assigned Patient Location: ER Current Patient Loca tion: ER Accession/Order Numb er: [id number] Exam Date: 10/12/2023 22:07 Report Date: 10/12/2023 22:58 At the request of: FABIO DE LA ROSA Procedure: XR chest 1V EXAM: XR chest 1V CLINICAL INDICATION: chest pain TECHNIQUE: Portable frontal semi-erect view of the chest. COMPARISON: 08/09/2022 FINDINGS: Lines and tubes: None. Lungs: No convincing focal infiltrates. No pleural effusion or pneumothorax. Heart: Cardiac and mediastinal contours are unremarkable. No overt pulmonary vascular congestion. Osseous structures: No acute abnormalities. X R/XR chest 1V IMPRESSION: No acute cardiopulmo nary process. Electronically authenticated by: BHAVIN GALVEZ Date: 10/12/2023 22:58 Dictated By: Bhavin Galvez M.D. Signed By: 10/12/232299 DD/ 57 TD/TT: [employer]: ECG 12 lead Reviewed date:10/19/2023 08:39:19 AM Interpretation: Performing Lab: Notes/Report: Source Facility: [place] [address] Electrocardiograph Report Signed Patient: ALEXA DELGADO MR#: [id number] : 1940 Acct:[id number] Age/Sex: 83 / F ADM Date: 10/12/23 Loc: MS 230-[address]: Galina Rogers M.D. Ordering Physician: Fabio De La Rosa Date of Service: 10/12/23 Procedure(s): ECG 12 lead Accession Number(s): [id number] cc: [facility] Test Date: 2023-10-12 Pat Name: ALEXA DELGADO Department: Room: - Gender: Female [employer]: : 1940 Requested By: GALINA ROGERS Order Number: [id number] Reading MD: CARL FINN Measurements Intervals [place] Rate: 93 P: 62 MO: 150 QRS: 44 QRSD: 86 T: 43 QT: 338 QTc: 389 Interpretive Statements 1100 Sinus rhythm 9110 normal ECG Compared to ECG 08/09/2022 13:12:09 No significant changes Electronically Signed On 10-18-2023 22:18:26 EDT by CARL FINN Dictated By: Carl Finn D.O. Signed By: 10/18/232217 DD/ 41 TD/TT: [employer]: [place] [address] Electrocardiograph Report Signed Patient: SYEDA DELGADO MR#: [id number] : 1940 Acct:[id number] Age/Sex: 83 / F ADM Date: 10/12/23 Loc: MS 230-[address]: Keo Rogers M.D. Ordering Physician: Fabio De La Rosa Date of Service: 10/12/23 Procedure(s): ECG 12 lead Accession Number(s): [id number] cc: [facility] Test Date: 2023-10-12 Pat Name: ALEXA BARNES Department: 31 Room: - Gender: Female [employer]: : 1940 Requ ested By: GALINA ROGERS Order Number: [id number] Reading MD: CARL FINN Measurements Intervals [place] Rate: 93 P: 62 MO: 150 QRS: 44 QRSD: 86 T: 43 QT: 338 QTc: 389 Interpretive Statements 1100 Sinus rhythm 9110 normal ECG Compared to ECG 08/09/2022 13:12:09 No significant changes Electronically Essie d On 10-18-2023 22:18:26 EDT by CARL FINN Dictated By: Carl Finn D.O. Signed By: 10/18/232217 DD/ 41 TD/TT: [employer]: Troponin I High Sensitivity Reviewed date:10/13/2023 07:17:11 PM Interpretation: Performing Lab: Notes/Report: [facility] , Troponin I High Sensitivity 18.6 4.0-51.3 pg/mL CUT-OFF POINTS HAVE BEEN ESTABLISHED BASED ON THE FOURTH UNIVERSAL DEFINITION OF MYOCARDIAL INFARCTION. THE UPPER REFERENCE LIMIT (URL) OF TROPONIN, DEFINED THE 99TH PERCENTILE OF cTnI DISTRIBUTION IN A REFERENCE POPULATION, HAS BEEN CONFIRMED THE DECISION THRESHOLD FOR [place] DIAGNOSIS. 99TH PERCENTILE = 51.4 PG/ML NOTE: HIGH-SENSITIVITY TROPONIN ASSAY IS NOT INTENDED TO BE USED IN ISOLATION BUT SHOULD BE INTERPRETED IN CONJUNCTION WITH OTHER DIAGNOSTIC AND CLINICAL INFORMATION. Performing Lab: see note ML - [facility] LB PROF CHEM 8 (BAS METB) Reviewed date:10/13/2023 07:17:11 PM Interpretation: Performing Lab: Notes/Report: [facility] , Sodium 132 136-145 mmol/L Potassium 4.5 3.5-5.1 mmol/L Chloride 94 98-107 mmol/L Carbon Dioxide 30.0 21.0-32.0 mmol/L Anion Gap 12.5 Glucose 113 74-106 mg/dL Blood Urea Nitrogen 26.0 7.0-18.0 mg/dL Creatinine 0.92 0.55-1.02 mg/dL Estimated GFR ( Maddy >60 >=60 Estimated GFR (Non- Britney 58 >=60 BUN Creatinine Ratio 28.3 Calcium 9.0 8.5-10.1 mg/dL Performing Lab: see note ML - [facility] LB LIVER PROFILE Reviewed date:10/13/2023 07:17:11 PM Interpretation: Performing Lab: Notes/Report: [facility] , Bilirubin Total 0.2 0.2-1.0 mg/dL Bilirubin Direct 0.1 0.0-0.2 mg/dL Aspartate Amino Transferase 27 15-37 U/L Alanine Aminotransferase 35 14-59 U/L Alkaline Phosphatase 80 46-116 U/L Total Protein 6.5 6.4-8.2 g/dL Albumin Level 3.5 3.4-5.0 g/dL Globulin 3.0 Albumin Globulin Ratio 1.2 Performing Lab: see note ML - [facility] LB LIPASE Reviewed date:10/13/2023 07:17:11 PM Interpretation: Performing Lab: Notes/Report: [facility] , Lipase 67.0 16.0-77.0 U/L Performing Lab: see note ML - [facility] LB D-DIMER Reviewed date:10/13/2023 07:17:11 PM Interpretation: Performing Lab: Notes/Report: [facility] , D Dimer 0.78 <=0.59 mg/L FEU RESULTS CALLED TO DR. DE LA ROSA Increases in D-Dimer concentration observed with thromboembolic events can be variable due to localization, size, and age of the thrombus. Therefore, a thromboembolic event cannot be diagnosed with certainty on the basis of the reference range. D-Dimers may also be elevated for a variety of disorders including advanced age, , coronary disease, cancer, liver disease, infection, inflammation, hematoma, DIC, trauma, post-surgery, diabetes, thrombolytic or anticoagulant therapy, stress, and generalized hospitalization. Performing Lab: see note ML - [facility] LB CBC AUTO DIFF Reviewed date:10/13/2023 07:17:11 PM Interpretation: Performing Lab: Notes/Report: [facility] , White Blood Count 6.2 4.0-11.0 10 3/uL Red Blood Count 3.62 4.20-5.40 10 6/uL Hemoglobin 11.7 12.0-16.0 g/dL Hematocrit 34.6 36.0-48.0 % Mean Corpuscular Volume 95.6 81.0-99.0 fL Mean Corpuscular Hemoglobin 32.3 26.7-34.0 pg Mean Corpuscular HGB Conc 33.8 29.9-35.2 g/dL Red Cell Distribution Width 13.0 11.0-15.0 % Platelet Count 216 150-450 10 3/uL Mean Platelet Volume 9.5 9.5-13.5 fL Neutrophils Percent Auto 72.0 43.0-75.0 % Lymphocytes Percent Auto 10.8 20.5-60.0 % Monocytes Percent Auto 15.0 1.7-12.0 % Eosinophils Percent Auto 0.6 0.9-7.0 % Basophils Percent Auto 0.3 0.2-2.0 % Immature Granulocytes Pct Auto 1.3 0.0-0.5 % Neutrophils Absolute Auto 4.5 1.4-6.5 10 3/uL Lymphocytes Absolute Auto 0.7 1.2-3.8 10 3/uL Monocytes Absolute Auto 0.9 0.3-0.8 10 3/uL Eosinophils Absolute Auto 0.0 0.0-0.7 10 3/uL Basophils Absolute Auto 0.0 0.0-0.1 10 3/uL Immature Granulocytes Abs Auto 0.08 0.00-0.03 10 3/uL Performing Lab: see note ML - [facility] LB PTT Reviewed date:10/24/2023 11:51:00 AM Interpretation: Performing Lab: Notes/Report: [facility] , Partial Thromboplastin Time 22.7 22.3-36.2 sec Performing Lab: see note ML - [facility] LB XR HAND RT MIN 3V Reviewed date:08/02/2024 12:53:09 PM Interpretation: Performing Lab: Notes/Report: Source Facility: [place] [address] XRay Report Signed Patient: ALEXA DELGADO MR#: [id number] : 1940 Acct:[id number] Age/Sex: 84 / F ADM Date: 08/01/24 Loc: RAD Attending Dr: Epifanio Meza NP Ordering Physician: Epifanio Meza NP Date of Service: 08/01/24 Procedure(s): XR hand RT min 3V Accession Number(s): [id number] cc: Epifanio Meza NP; Galina Rogers M.D. [place] [address] Patient Name: ALEXA DELGADO MRN: [id number] date: 1940 Sex: F Assigned Patient Location: [facility] Current Patient Location: [facility] Accession/Order Number: [id number] Exam Date: 08/01/2024 20:16 Report Date: 08/01/2024 20:18 At the request of: EPIFANIO MEZA NP Procedure: XR hand RT min 3V 3 views right hand plain film COMPARISON: None HISTORY: Chronic right hand pain for years. No injury ACUTE FINDINGS: None DEGENERATIVE CHANGE: There is extensive first carpometacarpal degeneration with bony fragmentation and dislocation with subarticular sclerotic and cystic changes. Extensive first interphalangeal degeneration. Moderate interphalangeal degenerative changes. Chondrocalcinosis of the triangular cartilage. 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 Impression dictated by: Aiden Esquivel M.D. 08/01/2024 8:18 PM Dictation Location: [place] [address] Electronically authenticated by: [id number] Y Date: 08/01/2024 20:18 Dictated By: Aiden Esquivel D.O. Signed By: 08/01/242020 DD/ 17 TD/TT: [employer]: [place] [address] XRay Report Signed Patient: SYEDA DELGADO MR#: [id number] : 1940 Acct:[id number] Age/Sex: 84 / F ADM Date: 08/01/24 Loc: RAD Attending Dr: Epifanio lemons NP Ordering Physician: Epifanio Meza NP Date of Service: 08/01/24 Procedure(s): XR hurtado d RT min 3V Accession Number(s): [id number] cc: Epifanio Meza NP; Galina Rogers M.D. [address] [place] [id number] Patient Name: ALEXA DELGADO MRN: [id number] date: 1940 Sex: F Assigned Patient Location: [facility] Current Patient Loca tion: RAD Accession/Order Numb er: [id number] Exam Date: 08/01/2024 20:16 Report Date: 08/01/2024 20:18 At the request of: EPIFANIO MEZA NP Procedure: XR hand R T min 3V 3 views right hand p benny film COMPARISON: None HISTORY: Chronic rig ht hand pain for years. No injury ACUTE FINDINGS: None DEGENERATIVE CHANGE: There is extensive first carpometacarpal degeneration with bony fragmentat ion and dislocation with subarticular sclerotic and cystic changes. Extensive f irst interphalangeal degeneration. Moderate interphalangeal degenerative changes. Chondrocalcinosis of the triangular cartilage. SOFT TISSUE FINDINGS : Unremarkable JOINT EFFUSION: None POSTOP CHANGES: None BONY MINERALIZATION: Diffuse osteopenia X R/XR hand RT min 3V IMPRESSION: Extensiv e first carpometacarpal degeneration with bony fragmentation and subluxation. Impression dictated by: Aiden Esquivel M.D. 08/01/2024 8:18 PM Dictation Location: [place] [address] Electronically authenticated by: [id number] Y Date: 08/01/2024 20:18 Dictated By: Max Esquivel D.O. Signed By: 08/01/242020 DD/ 17 TD/TT: [employer]: CT head/brain wo con Reviewed date:07/23/2024 08:48:43 PM Interpretation: Performing Lab: Notes/Report: Source Facility: [place] [address] CT Scan Report Signed Patient: ALEXA DELGADO MR#: [id number] : 1940 Acct:[id number] Age/Sex: 84 / F ADM Date: 07/23/24 Loc: ER Attending Dr: Ordering Physician: Pauline Ferrell Date of Service: 07/23/24 Procedure(s): CT head/brain wo con Accession Number(s): [id number] cc: Galina Rogers M.D. [place] [address] Patient Name: ALEXA DELGADO MRN: [id number] date: 1940 Sex: F Assigned Patient Location: ED.MAIN Current Patient Location: ED.MAIN Accession/Order Number: [id number] Exam Date: 07/23/2024 14:31 Report Date: 07/23/2024 14:38 At the request of: PAULINE FERRELL Procedure: CT head/brain wo con CT head/brain wo con 07/23/2024 2:11 PM SIGNS AND SYMPTOMS: Fall, left shoulder pain and left forearm pain TECHNIQUE:Multi-detector CT axial slices of the brain were obtained without IV contrast. CT was performed with one or more of the following dose reduction techniques: Automated exposure control, adjustment of the mA and/or kV according to patient size, or use of iterative reconstruction technique. COMPARISON: 08/09/2022 FINDINGS: There is no shift of the midline structures, acute intracranial bleeding, mass effects, or evidence of acute ischemia. There is gliosis and encephalomalacia in the left temporal lobes suggesting a remote infarct. Periventricular and subcortical white matter hypoattenuation is noted consistent with chronic microvascular change. Atherosclerotic changes are noted in the intracranial segments of the internal carotid arteries. The ventricular system is normal in size. The brainstem and the cerebellum are unremarkable. The visualized intraorbital contents and the infratemporal soft tissues show no acute abnormality. There is chronic appearing mucosal thickening in the right sphenoid sinus. The osseous structures in the skull base and the calvarium show no abnormality. CT/CT head/brain wo con IMPRESSION: No acute intracranial pathology. 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 Impression dictated by: Yovany Patel M.D. 07/23/2024 2:38 PM Dictation Location: [place] [address] Electronically authenticated by: [id number] Y Date: 07/23/2024 14:38 Dictated By: Yovany Patel M.D. 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: [place] [address] CT Scan Report Signed Patient: SYEDA DELGADO MR#: [id number] : 1940 Acct:[id number] Age/Sex: 84 / F ADM Date: 07/23/24 Loc: ER Attending Dr: Ordering Physician: Pauline Ferrell Date of Service: 07/23/24 Procedure(s): CT head/brain wo con Accession Number(s): [id number] cc: Galina Rogers M.D. [place] [id number] Patient Name: ALEXA DELGADO MRN: [id number] date: 1940 Sex: F Assigned Patient Location: ED.MAIN Current Patient Loca tion: ED.MAIN Accession/Order Numb er: [id number] Exam Date: 07/23/2024 14:31 Report Date: 07/23/2024 14:38 At the request of: PAULINE FERRELL Procedure: CT head/b rain wo con CT head/brain wo con 07/23/2024 2:11 PM SIGNS AND SYMPTOMS: Fall, left shoulder pain and left forearm pain TECHNIQUE:Multi-dete ctor CT axial slices of the brain were obtained without IV contrast. CT was performed with one or more of the following dose reduction techniques: Automate d exposure control, adjustment of the mA and/or kV according to patient size, or use of iterative reconstruction technique. COMPARISON: 08/09/2022 FINDINGS: There is n o shift of the midline structures, acute intracranial bleeding, mass effec ts, or evidence of acute ischemia. There is gliosis and encephalomalacia in the left temporal lobes suggesting a remote infarct. 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 Atherosclerotic changes are noted in the intracr anial segments of the internal carotid arteries. The ventricular system i s normal in size. The brainstem and the cerebellum are unremarkable. The visualized intraorbital contents and the infratemporal soft tissues show no acut e abnormality. There is chronic appearing mucosal thickening in the ri ght sphenoid sinus. The osseous structures in the skull base and the calvari um show no abnormality. C T/CT head/brain wo con IMPRESSION: No acute intracrania l pathology. 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 Impression dictated by: Yovany Patel M.D. 07/23/2024 2:38 PM Dictation Location: [place] [address] Electronically authenticated by: [id number] Y Date: 07/23/2024 14:38 Dictated By: Yovany Patel M.D. 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: Reason For Referral Diagnosis 1 Weakness (R53.1) Referral Organization [facility] Referring Provider First Name Bang Referring Provider Last Name Sue Referring Provider Speciality Family Med icine Referred Provider [facility], Physical Therap y Referred Provider Specialty Physical The rapist General Notes Sydnee Ojeda 2024 09:14:46 AM >[facility] Therapy as well Referral Priority Routine Medications Medication SIG (Take, Route, Frequency, Duration) Notes Start Date End Date Status Hyoscyamine Sulfate 0.125 MG 1-2 tabs SL SL every 4 hrs PRN abd pain 03/21/2024 Active HYDROcodone-Acetaminophen 5-325 MG 1 tablet as needed Orally three times daily Active Flaxseed Oil 1000 MG as directed Orally Active Ferrous Sulfate 325 (65 Fe) MG TAKE 1 TABLET BY MOUTH TWICE A DAY FOR 30 DAYS for 90 Active Isosorbide Mononitrate ER 30 MG TAKE 1 TABLET BY MOUTH EVERY DAY IN THE MORNING FOR 90 DAY for 90 Active Melatonin 3 MG 1 tablet at bedtime as needed Orally Once a day for 30 day(s) Active Magnesium 250 MG 1 tablet with a meal Orally Once a day 07/20/2023 Active Liothyronine Sodium 25 MCG TAKE 1 TABLET ONCE DAILY ROBRET 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 for 90 Active Levothyroxine Sodium 75 MCG TAKE 1 TABLE T BY MOUTH EVERY DAY for 90 Active Cyclobenzaprine HCl 5 MG TAKE 1 TABLET I N THE MORNING AND 2 TABLETS AT BEDTIME DIRECTED for 30 Active Klor-Con M20 20 MEQ 1 tablet with food Orally twice daily for 30 days 03/22/2024 Active Benita Allergy 180 MG 1 tablet Swallow whole with water; do not take with fruit juices. Orally Once a day for 30 day(s) Active Prolia 60 MG/ML as directed Subcutaneous Active Pantoprazole Sodium 40 MG TAKE 1 TABLET BY MOUTH EVERY DAY for 90 Active Ondansetron 4 MG 1 tablet on the tong ue and allow to dissolve Orally qid for 5 days 03/21/2024 Active Nitroglycerin 0.4 MG as directed Sublingual Active Multivital Active Metoprolol Succinate ER 50 MG take 2 in amd an 1 in evening for 90 days Active Diclofenac Sodium 75 MG TAKE 1 TABLET 2 TIMES DAILYAS NEEDED for 90 days Active Compression Stocking Thigh 20-30mmHg - 10/14/2023 Active Tylenol Arthritis Pain 650 MG 2 tablets as needed Orally every 8 hrs Active Citalopram Hydrobromide 10 MG TAKE 1 TABLET BY MOUTH EVERY DAY for 90 Active Triple Flex 500-400-125 MG 1 tablet with meals Orally twice daily for 30 days Active Caltrate 600+D 600-400 MG-UNIT 1 tablet Orally Twice a day for 30 day(s) Active Salonpas Pain Relief Patch - as directed Externally Active Aspirin 81 MG 1 tablet Orally Ever y other day for 30 days Active Saline [place] 0.65 % as directed Nasally 07/20/2023 Active Immunizations Vaccine Route Administration Date Status Comme nts Flu, Fluad (31278) 65 yrs+, single-dose syringe (6201-9527) Unknown 10/25/2022 Administered Social History Tobacco Use: Social History Observation Description Date Details (start date - stop date) Never Smoker NA - NA Tobacco Use/Smoking Question Answer Notes Patient is a nonsmoker AUDIT-C (Standard) Question Answer Notes Did you have a drink containing alcohol in the p ast year? No Points 0 Interpretation Negative Problems Problem Type SNOMED Code ICD Code Onset Dates Problem Status W/U Status Risk Notes Problem 67239451 Age-related osteoporosis without current pathological fracture (M81.0) Active confirmed Problem 170612786 Obesity, unspecified (E66.9) Active confirmed Problem 51302763 Hyperlipidemia, unspecified (E78.5) Active confirmed Problem 3120651 Supraventricular tachycardia (I47.1) Active confirmed Problem Chronic respiratory failure (43674463) Chronic respiratory failure with hypoxia (J96.11) Active confirmed Problem Arthropathies and related disorders (158313149) Other specific arthropathies, not elsewhere classified, unspecified hand (M12.849) Active confirmed Problem 165826697 Other forms of scoliosis, lumbar region (M41.86) Active confirmed Problem Lumbosacral spondylosis without myelopathy (57065268) Other spondylosis, lumbar region (M47.896) Active confirmed Problem 01378013 Other intervertebral disc degeneration, 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) Active confirmed Problem 80879683 Other intervertebral disc degeneration, lumbar region (M51.36) Active confirmed Problem Chest pain (18589963) Chest pain (R07.9) Active confirmed Problem Hypertension (64488456) Hypertension (I10) Active confirmed Problem Hypothyroidism (96664094) Hypothyroidism (E03.9) Active confirmed Problem Coronary artery disease (16939325) CAD (coronary artery disease) (I25.10) Active confirmed Problem Hypothyroid (67567048) Hypothyro id (E03.9) Active confirmed Problem Arthritis (5375735) Arthritis (M19.90) Active c onfirmed Problem Sleep apnea (36247134) Sleep molder meat ea (G47.30) Active confirmed Problem Obstructive sleep apnea syndrome (06278547) BETO (obstructive sleep apnea) (G47.33) Active confirmed Problem Dementia (95267297) Dementia (F03.90) Active co nfirmed Problem Transient ischemic attack (213374785) TIA (transient ischemic attack) (G45.9) Active confirmed Problem Confusion (32325541) Confusion (R41.0) Active c onfirmed Problem Allergic rhinitis (98576461) Allergic rhinitis (J30.9) Active confirmed Problem Localized, primary osteoarthritis of the pelvic region and thigh (361365347) Osteoarthritis of right hip (M16.11) Active confirmed Problem Stasis dermatitis (disorder) (83602784) Venous stasis dermatitis (I83.10) Active confirmed Problem Acquired hypothyroidism (551685315) Acquired hypothyroidism (E03.9) Active confirmed Problem Sciatica (14342706) Sciatica (M54.30) Active co nfirmed Problem Arthritis of both knees (9286271479233419) Arthritis of both knees (M19.90) Active confirmed Problem Seasonal allergic rhinitis (572995397) Seasonal allergic rhinitis (J30.2) Active confirmed Problem Memory loss (20221452) Memory lo ss (R41.3) Active confirmed Problem Scoliosis (759801689) Scoliosis (M41.9) Active confirmed Problem Hyperthyroidism (80276391) Hyperthyroidism (E05.90) Active confirmed Problem Laboratory test resu lt abnormal (401372156) Abnormal laboratory test (R89.9) Active confirmed Problem Cervical spondylosis (700105301) Cervical spondylosis (M47.812) Active confirmed Problem Degeneration of cervical intervertebral disc (32636260) Degenerative cervical disc (M50.30) Active confirmed Problem Fluid overload (36519408) Fluid overload (E87.70) Active confirmed Problem Disorder of lumbar disc (791214394) Disc disorder of lumbar region (M51.9) Active confirmed Problem Edema (512578307) Bilateral leg edema (R60.0) Active confirmed Problem Allergic arthritis o f the shoulder region (167320189) 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) Active confirmed Problem Monocytosis (44078272) Monocytos is (D72.821) Active confirmed Problem Otitis externa (8312193) External otitis (H60.90) Active confirmed Problem Displacement of lumb ar intervertebral disc without myelopathy (59483732) 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) Active confirmed Problem Essential hypertensi on (60835858) BP (high blood pressure) (I10) Active confirmed Problem Pure hypercholesterolemia (282557126) Pure hypercholesterolem ia, unspecified (E78.00) Active confirmed Problem Thyromegaly (9626934) Thyromegal y (E01.0) Active confirmed Problem Diastolic heart failure (647622134) CHF (congestive heart failure), NYHA class I, unspecified failure chronicity, diastolic (I50.30) Active confirmed Problem Laceration of ar m, left, subsequent encounter (S41.112D) Active confirmed Problem Mixed anxiety and depressive disorder (452288115) Anxiety and depression (F41.8) Active confirmed Problem Secondary pulmonary hypertension (65563895) Other secondary pulmonary hypertension (I27.29) Active confirmed Problem Poor short-term lynette ry (848040079) Poor short-term memory (R41.3) Active confirmed Problem 226743487 Body mass index [BMI] 31.0-31.9, adult (Z68.31) Active confirmed Problem Easy bruising (760890877) Easy bruisability (R23.3) Active confirmed Vital Signs Heart Rate 96 /min 03/22/2024 Temperature 99.8 degrees Fahrenheit 03/22/2024 Oximetry 96 % 03/22/2024 Blood pressure diastolic 80 mm Hg 08/06/2024 Height 60 in 08/06/2024 Blood pressure systolic 150 mm Hg 08/06/2024 Weight 170 lbs 08/06/2024 BMI 33.2 kg/m2 08/06/2024 Procedures Procedure Date Ordered Date Performed Result Body Sit e JASON Ankle Brachial Index (40463) 10/31/2023 N/A JASON Segmental Pressure Study of Lower Extremity 10/31/2023 N/A Encounters Encounter Location Date Provider Diagnosis [address] [address] 10/31/2023 Bang Rogers Bilateral leg edema R60.0 and Venous stasis dermatitis I83.[address] [address] 01/25/2024 Bang Rogers Poor short-term lynette ry R41.3 ; Hypothyroidism E03.9 ; Pure hypercholesterolemia, unspecified E78.00 ; TIA (transient ischemic attack) G45.9 and Hypertension I10 [address] [address] 03/22/2024 Judi Ivone Gastroenteritis K52. [address] [address] 10/14/2023 Bang Hoy Hypertension I10 and Chest pain R07.9 [facility] [address] [place] [address] 07/25/2024 Bang Hoy Laceration of arm, right, initial encounter S41.111A and H/O fall Z91.81 [facility] [address] [place] [address] 07/30/2024 Bang Hoy Laceration of arm, l eft, subsequent encounter S41.112D [facility] [address] [facility] [place] [address] 08/06/2024 Bang Hoy Laceration of arm, l eft, subsequent encounter S41.112D [facility] [address] [facility] [address] [facility] [address] 04/10/2024 Bang Mcdowelly Encounter for Medica re annual wellness exam Z00.00 [facility] [address] [facility] [place] [address] 10/13/2023 Bang Hoy [facility] [address] [facility] [place] [address] 10/21/2023 Bang Hoy Spontaneous ecchymos es R23.3 [facility] [address] [facility] [place] [address] 10/24/2023 Bang Hoy [facility] [address] [facility] [place] [address] 10/25/2023 Bang Hoy [facility] [address] [place] [address] 11/11/2023 Bang Hoy [facility] [address] [place] [address] 12/05/2023 Bang Hoy [facility] [address] [place] [address] 01/04/2024 Bang Hoy UTI (urinary tract infection) N39.0 [facility] [address] [place] [address] 01/04/2024 Bang Hoy [facility] [address] [facility] [address] 01/26/2024 Bang Rogers [facility] [address] [facility] [place] [place] [address] 03/21/2024 Bang Rogers [facility] [address] [facility] [address] 03/22/2024 Bang Jeremiasy [facility] [address] [facility] [place] [address] 03/23/2024 Judi Wiseman Abnormal laboratory test R89.9 [facility] [address] [facility] [place] [place] [address] 04/04/2024 Judi Wiseman [facility] [address] [facility] [place] [address] 04/10/2024 Bang Rogers Weakness R53.1 [facility] [address] [facility] [place] [place] [address] 05/28/2024 Bang Rogers [facility] [address] [facility] [address] 09/20/2024 Bang Rogers Abnormal laboratory test R89.9 ; Confusion R41.0 and Bladder retention R33.9 Assessments Encounter Date Diagnosis (ICD Code) Assessment Notes Treatment Notes Treatment Clinical Notes Section Notes 01/25/2024 Poor short-term memory (ICD-10 - R41.3) 01/25/2024 Hypothyroidism (ICD-10 - E03.9) 10/14/2023 Hypertension (ICD-10 - I10) 10/14/2023 Chest pain (ICD-10 - R07.9) 10/31/2023 Bilateral leg edema (ICD-10 - R60.0) 10/31/2023 Venous stasis dermatitis (ICD-10 - I83.10) 03/22/2024 Gastroenteritis (ICD-10 - K52.9) push fluids, electrolytes symptoms resolving at this time ER if needed , feels worse notify office if diarrhea continues >7 days has been taking zofran and levsin 04/10/2024 Encounter for Medicare annual wellness exam (ICD-10 - Z00.00) 07/25/2024 Laceration of arm, right, initial encounter (ICD-10 - S41.111A) 07/25/2024 H/O fall (ICD-10 - Z91.81) 07/30/2024 Laceration of arm, left, subsequent encounter (ICD-10 - S41.112D) 08/06/2024 Laceration of arm, left, subsequent encounter (ICD-10 - S41.112D) Stitches coming out with 10/21/2023 Spontaneous ecchymoses (ICD-10 - R23.3) 01/04/2024 UTI (urinary tract infection) (ICD-10 - N39.0) 03/23/2024 Abnormal laboratory test (ICD-10 - R89.9) 04/10/2024 Weakness (ICD-10 - R53.1) 09/20/2024 Abnormal laboratory test (ICD-10 - R89.9) 09/20/2024 Confusion (ICD-10 - R41.0) 09/20/2024 Bladder retention (ICD-10 - R33.9) 01/25/2024 Pure hypercholesterolemi a, unspecified (ICD-10 - E78.00) 01/25/2024 TIA (transient ischemic attack) (ICD-10 - G45.9) 01/25/2024 Hypertension (ICD-10 - I10) 07/25/2024 Other no signs infections Plan Of Treatment Pending Test Test Name Order Date Lexiscan Stress Nuclear Test 10/14/2023 UA (URINALYSIS, COMPLETE) 09/20/2024 UA (URINALYSIS, COMPLETE) 01/04/2024 CBC WITH DIFF 03/22/2024 Echocardiogram 09/23/2022 MRI Lumbar Spine w/o contrast 07/16/2022 Urine Culture 01/04/2024 Sleep study - Diagnostic Polysonogram COMPREHENSIVE METABOLIC PROFILE WITH GFR 09/20/2024 CBC W/AUTO DIFF 09/20/2024 CBC W/AUTO DIFF 10/21/2023 CBC W/AUTO DIFF 08/18/2023 CBC W/AUTO DIFF 08/12/2023 CMP 03/23/2024 JASON Ankle Brachial Index (71483) 024 AMMONIA 08/18/2022 BLEEDING TIME 08/12/2023 CBC AUTO DIFF 08/18/2022 CULTURE URINE 09/20/2024 FERRITIN 08/18/2023 IRON 08/18/2023 MONO 08/14/2023 PERIPHERAL SMEAR 08/14/2023 PROF 14(COMP METB) 08/18/2022 PROTIME 08/12/2023 THYROID PROFILE WITH TSH 12/08/2022 THYROID PROFILE WITH TSH 04/04/2023 URINE MICROSCOPIC ONLY 01/04/2024 US KIDNEYS BLADDER 09/20/2024 VC VENOUS REFLUX CLEMENCIA LMT 10/31/2023 XR DEXA BONE DENSITY 03/30/2023 PROTIME-INR 10/21/2023 JASON Segmental Pressure Study of Lower Ex tremity 10/31/2023 CMP (COMP MET DOSHI) w/eGFR CKD-EPI 2024 Insurance Providers Payer Name Payer Address Payer Phone Subscriber Number Group Number Insured Name Patient Relationship to Insured Coverage Start Date Coverage End Date MEDICARE RAILROAD [address] [address] [place], [place] [id number] [phone] [id number] Alexa Delgado Self - patient is the insured [facility] [address] [place] [address] [phone] [id number] Grzegorz Delgado Spouse - patient is the spouse of the insured 4 Medications Administered Medication Instructions Date of Administration Dosage Notes Kenalog-40 07/15/2022 120 mg Ketorolac Tromethamine 07/15/2022 60 mg Ketorolac Tromethamine 09/17/2022 30 mg Orphenadrine Citrate 09/17/2022 30 mg Medical (General) History Medical History History ICD Code COVID-19 U07.1 Dehydration E86.0 Cervical spondylosis M47.812 Poor short-term memory R41.3 Degenerative cervical disc M50.30 Allergic arthritis of left shoulder heaven on M13.812 Eczema L30.9 Seasonal allergic rhinitis J30.2 External otitis H60.90 Chest pain R07.9 Hypothyroidism E03.9 TIA (transient ischemic attack) G45.9 Contracture of muscle, unspecified lower leg M62.469 Abscess, trunk L02.219 Unspecified fracture of unsp ecified pubis, initial encounter for closed fracture S32.509A Other specified fracture of unspecified pubis, initial encounter for closed fracture S32.599A Bilateral leg edema R60.0 Arthritis of both knees M19.90 Other spondylosis, lumbar region M47.896 Osteoarthritis of right hip M16.11 Trochanteric bursitis, right hip M70.61 Herniated lumbar intervertebral disc M51 .26 Sciatica M54.30 Osteopenia M85.80 Scoliosis M41.9 Trochanteric bursitis, left hip M70.62 Pure hypercholesterolemia, unspecified E 78.00 Speech disorder R47.9 Lumbar radiculopathy M54.16 Hypertension I10 Keratosis, seborrheic L82.1 Arthritis, degenerative 715.90 Disc disorder of lumbar region M51.9 Hyperthyroidism E05.90 Thyromegaly E01.0 Other specific arthropathies, not elsewh ere classified, unspecified hand M12.849 Allergic rhinitis J30.9 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 Meza 08/31/2023 left L4-5, L5-S1 transforaminal epidural steroid injection Left sacroiliac joint injection Bilateral Sacroiliac Joint Injection 05/28 Hospitalization History Reason Date(Month/Year) vertigo 07/2022
--- OUTSIDE RECORDS SUMMARY | 2024-09-21 11:19 | XMS_ITS | Encounter Summary ---
Author Organization [facility] Address [address] [place] [address] Care Team Providers Care Tripe Scraper Name Role Phone Luis Rogers MD Primary Care Provider [phone] Encounter Details Date Type Department Care Team (Late Contact Info) Description 01/09/2024 Orders Only [facility] [address] [place] [address] Armando Thayer, DO [address] [place] [address] Social History Tobacco Use Types Packs/Day Years [...] 12/10/2025 11:30 AM EDT Office Visit [facility] [address] [place] [address] Armando Thayer, [address] [place] [address] documented as of this encounter Procedures Procedure [...] on filedocumented in this encounter Care Teams Tripe Scraper Relationship Specialty Start Date End Date Luis Rogers MD PCP - General Family Medicine 08/02/22 documented as of this encounter
--- OUTSIDE RECORDS SUMMARY | 2024-09-21 11:19 | XMS_ITS | Clinical Summary ---
Author Organization [facility] Address [address] [place] [address] Care Team Providers Care Senior Web Developer Name Role Phone Luis Rogers MD Primary Care Provider [phone] Allergies Active Allergy Reactions Criticality Noted Date [...] daily for 30 days Active HYDROcodone-acet aminophen ([place]) 5-325 MG tablet 1 tablet as needed [...] Description 12/10/2025 11:30 AM EDT Office Visit [facility] [address] [facility] [address] [place] [address] Armando Thayer DO [address] [facility] [address] [place] [address] Health Maintenance Due Date Last Done Comments Pneumococcal Vaccine: 65+ Ye ars (2 of 2 - PPSV23) 11/12/2017 11/12/2016 Influenza Vaccine (#1) 2024 2, 11/28/2020, 11/29/2019 [place] [address] [facility] Care Teams Senior Web Developer Relationship Specialty Start Date End Date Luis Rogers MD PCP - General Family Medicine 08/02/22
--- OUTSIDE RECORDS SUMMARY | 2024-09-21 11:27 | XMS_ITS | CCD ---
Author Organization [facility] Care Team Providers Care Polisher Balance Screwhead Name Role Phone PHYSICIAN, DEFAULT Unavailable Unavailable PHYSICIAN, DEFAULT Unavailable Unavailable Haley Matos DO, George Cajetan Unavailable Galina Rogers MD Primary Care Provider [phone] Lakshmipathy, Narendranath Unavailable Haley Matos DO, [...] Unavailable HOY ., DR MOJICA Consulting Unavailable [place], DR HERMES Jean Baptiste Consulting Unavailable BECKWITH [...] Unavailable Galina Rogers MD Primary Care Provider [phone] Ishmael MEANS, Lyn Adams Attending Unavailable Ishmael [...] Translations: [CODEINE] Drug Allergy 09-14-19 13 Unknown [facility] (4 sources) Penicillins; Translations: [PENICILLINS] Drug Allergy 09-14-19 13 Unknown [facility] (4 sources) pregabalin; Translations: [PREGABALIN] Drug Allergy 05-15-19 23 Intolerance [facility] Work Phone: (5 sources) Propoxyphene; Translations: [PROPOXYPHENE] Drug Allergy 05-15-19 23 Rash, Unknown, GI intolerance, Headache [facility] (4 sources) quiNINE; Translations: [QUINAMM] Drug Allergy 05-15-19 23 GI Upset [facility] (5 sources) Decongest Multi-Action; Translations: [Decongest Multi-Action] Drug Allergy 05-15-19 23 Other: See Comments [facility] (1 source) Acetaminophen / HYDROcodone Drug Allergy [facility] Repository (2 sources) Codeine Drug Allergy 09-14-19 13 [facility] (1 source) Fluconazole Drug Allergy [facility] (2 sources) Penicillins Drug allergy (disorder) 09-14-19 13 [facility] (1 source) pregabalin Drug Allergy [facility] (2 sources) Propoxyphene Drug Allergy [facility] (1 source) quiNINE Drug Allergy [facility] (1 source) Fluconazole Allergy [...] mouth twice daily as needed HYDROcodone-acetamin ophen ([place]) 5-325 MG tablet 1 tablet as needed [...] Take by mouth twice a day. Active Nkcttqq-Iwzqkif-Ztgbo l Edwar (SALONPAS TD) (1 source) Camphor-Menthol- [...] above: Take by mouth twice daily. 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] Onset: 04-06-2022 Episodic [...] Test Name Value Interpretation Reference Range Facility [facility] 08-18-2023 L Specimen: [id number] Received: 08/22/23 Status: CECILIA Wright Num: [id number] Spec Type: Impression Subm Dr: Galina Rogers MD Tissues: PATHPER Procedures: PATHREVIEW Age/ Patient Sex Location Account Attending Physician Alexa Delgado 83/F LABELL [id number] Galina Rogers MD SPEC NUM: [id number] RECD: 08/22/23 [facility] NUM: [id number] JANET: 08/18/[address]: Galina Rogers MD ENTERED: 08/22/[address] [facility] [address]: EvelynLab SPEC TYPE: Impression DEPT: HSELLIE Simmons ENTERED BY: [id number] RECV BY: [id number] ORDERED: PATHREVIEW ORDERED: PATHREVIEW Pathologist Review Abnormal [...] initial report for the needed correction CPT: 03763 ---- ---- Specimen: [id number] Received: 08/22/23 Status: CECILIA Wright Num: [id number] Spec Type: Impression Subm Dr: Galina Rogers MD Tissues: PATHPER Procedures: PATHREVIEW ---- Patient: Alexa Delgado [id number] (Continued) ---- Signed (signature on file) Anoop Abdul MD 08/24/23918 Normal [facility] CNOVjustina 09-21-2022 CNOV Office Visit (NSADHC ) ALEXA DELGADO ([id number]) 1940 F Date Time Provider Department 09/21/22 1:00 PM CAROLYN VANEGAS [facility] During your visit today, we recorded [...] Percentile 2 (more content not included)... Normal [facility] XR LSPINE 2_3 VIEWSon 2022 XR LSPINE [...] Normal [facility] CNOVon 05-14-2022 OV Office Visit (SPMESH ) ALEXA DELGADO ([id number]) 1940 F Date Time Provider Department 05/14/22 2:30 PM MARTY DOZIER During your visit today, we recorded the following information about you: Pulse Blood pressure Weight Height 72/minute 158/87 76.4 kg 1.524 m Marty Dozier DO 05/15/2022 10:02 PM Signed [facility] - Medical [...] Ratio: R>L low back Current Treatment: Medications [place] 5-325 mg BID - helps Diclofenac 75 [...] but still has pain -01/28/22 Noemi Sequeira MUSICAL INSTRUMENT MAKER: BL Lumbar erector spinae TPI (0.125% Marcaine, [...] ongoing as of 04/17/21 -03/08/21 Noemi Sequeira MUSICAL INSTRUMENT MAKER: Left rhomboid TPI (0.125% Marcaine, 40 mg Kenalog) -02/03/21 LESI - moderate relief for 4 days Prior spine surgery: -2006 L4-5 Discectomy Previously treated by: -[facility], previously Dr. [...] today. She has an evaluation at the [facility] tomorrow at the [facility]. RECOMMENDATIONS: We will see the pat (more content not included)... Normal [facility] CULTURE URINEon 04-05-2022 CULTURE URINE Culture Observations : LIGHT GROWTH OF MIXED GENITAL ALANIS. NO POTENTIAL PATHOGENS SEEN. Normal [facility] Comment on above: Performed By: #### U RCX ####[facility] [address] [place] [address]Dr. Grace Abdul UA RANDOM W/MICROSCOPICon BACTERIA NONE SEEN Normal NONE SEEN [facility] Comment on above: Performed By: #### U AMIC ####[facility] [address] [place] [address]Dr. Grace Abdul Bilirubin Ql (U) Negative Normal NEGATIVE [facility] Comment on above: Performed By: #### U AMIC ####[facility] B[address]va[address] [place], [place] [address]Dr. Grace Abdul CAST NONE SEEN Normal NONE SEEN [facility] Comment on above: Performed By: #### U AMIC ####[facility] [address] [place] [address]Dr. Grace Abdul Clarity (U) CLEAR Normal CLEAR [facility] Comment on above: Performed By: #### U AMIC ####[facility] [address] [place] [address]Dr. Benitalan Abdul Color (U) YELLOW Normal YELLOW [facility] Comment on above: Performed By: #### U AMIC ####[facility] [address]aam[address] [place] [address]Dr. Grace Abdul Crystals LM Nom (Urine sed) NONE SEEN Normal NONE SEEN [facility] Comment on above: Performed By: #### U AMIC ####[facility] [address] [place] [address]Dr. Grace Abdul Epithelial cells LM Ql (Urine sed) RARE Normal NONE SEEN /RARE [facility] Comment on above: Performed By: #### U AMIC ####[facility] Efkdcrxktn[address] [place] [address]Dr. Grace Abdul Glucose Ql (U) Negative Normal NEGATIVE [facility] Comment on above: Performed By: #### U AMIC ####[facility] Mxisygbtqc[address] [place] [address]Dr. Grace Abdul Hemoglobin Ql (U) MODERATE Abnormal NEGATIVE [facility] Comment on above: Performed By: #### U AMIC ####[facility] Kkezh[address] [place] [address]Dr. Grace Abdul Ketones Ql (U) TRACE Abnormal NEGATIVE [facility] Comment on above: Performed By: #### U AMIC ####[facility] [address] [place], [place] [address]Dr. Benitalee ann Abdul LEUKOCYTES TRACE Abnormal NEGATIVE [facility] Comment on above: Performed By: #### U AMIC ####[facility] Artplstftg[address] [place], [place] [address]Dr. Grace Abdul MUCOUS NONE SEEN Normal NONE SEEN [facility] Comment on above: Performed By: #### U AMIC ####[facility] Uxmsxxfqxp[address] [place], [place] [address]Dr. Grace Abdul Nitrite Ql (U) Negative Normal NEGATIVE [facility] Comment on above: Performed By: #### U AMIC ####[facility] [address] [place], [place] [address]Dr. Grace Abdul pH (U) 5.0 [pH] Normal 5-9 [facility] Comment on above: Performed By: #### U AMIC ####[facility] Jv[address]ctevo[address] [place] [address]Dr. Grace Abdul RBC 0-2 Normal 0-2 [facility] Comment on above: Performed By: #### U AMIC ####[facility] Qzpbshpvqi[address] [place] [address]Dr. Grace Abdul SPEC GRAVITY 1.015 Normal 1.005-<=1.025 [facility] Comment on above: Performed By: #### U AMIC ####[facility] [address]ol[address] [place] [address]Dr. Grace Abdul UA PROTEIN Negative Normal NEGATIVE/ TRACE [facility] Comment on above: Performed By: #### U AMIC ####[facility] Xfbjcuwjjw13[address] [place] [address]Dr. Grace Abdul Urobilinogen Qn (U) 0.2 {Ashley'U}/dL Normal 0.2 - 1. 0 [facility] Comment on above: Performed By: #### U AMIC ####[facility] [address]prspfxsof[address] [place] [address]Dr. Grace Abdul WBC 0-2 Abnormal NONE SEEN [facility] Comment on above: Performed By: #### U AMIC ####[facility] I[address]jcohey[address] [place] [address]Dr. Grace Abdul CBC AUTO DIFFon 04-04-2022 BASO # 0.0 103/ul Normal 0.0-0.1 [facility] Comment on above: Performed By: #### C BC ####[facility] X[address]ms[address] [place], [place] [address]Dr. Grace Abdul Basophils/100 WBC (Bld) 0.4 % Normal 0.2-2.0 [facility] Comment on above: Performed By: #### C BC ####[facility] Cquqbneaoi[address] [place], [place] [address]Dr. Grace Abdul EO # 0.1 103/ul Normal 0.0-0.7 [facility] Comment on above: Performed By: #### C BC ####[facility] Uludqtlvfa[address] [place], [place] [address]Dr. Grace Abdul Eosinophils/100 WBC (Bld) 1.3 % Normal 0.9-7.0 [facility] Comment on above: Performed By: #### C BC ####[facility] [address] [place] [address]Dr. Grace Abdul Erythrocyte distribution width (RBC) [Ratio] 13.7 % Normal 11.0-15.0 [facility] Comment on above: Performed By: #### C BC ####[facility] Iem[address]fvrky[address] [place] [address]Dr. Benitalee ann Abdul Hematocrit (Bld) [Volume fraction] 37.2 % Normal 36.0-48.0 [facility] Comment on above: Performed By: #### C BC ####[facility] Rqevsbipni[address] [place] [address]Dr. Grace Abdul Hemoglobin (Bld) [Mass/Vol] 12.4 g/dL Normal 12.0-16.0 [facility] Comment on above: Performed By: #### C BC ####[facility] [address]zib[address]fe[address] [place] [address]Dr. Grace Abdul IG # 0.02 10e3/ul Normal 0.00-0.03 [facility] Comment on above: Performed By: #### C BC ####[facility] Ksmrhfnind[address] [place] [address]Dr. Grace Abdul IG % 0.4 % Normal 0.0-0.5 [facility] Comment on above: Performed By: #### C BC ####[facility] Ejl[address]qoem[address] [place] [address]Dr. Grace Abdul LYMPH # 0.8 103/ul Critically low 1.2-3.8 [facility] Comment on above: Performed By: #### C BC ####[facility] U[address]ztvebgi[address] [place] [address]Dr. Grace Abdul Lymphocytes/100 WBC (Bld) 13.9 % Critically low 20.5-60.0 [facility] Comment on above: Performed By: #### C BC ####[facility] [address]epthomsbf[address] [place] [address]Dr. Grace Abdul MANUAL DIFF REQ NO Normal [facility] Comment on above: Performed By: #### C BC ####[facility] Ilwncmbx[address] [place], [place] [address]Dr. Grace Abdul MCH (RBC) [Entitic mass] 30.5 pg Normal 26.7-34.0 [facility] Comment on above: Performed By: #### C BC ####[facility] P[address]vbdy[address] [place] [address]Dr. Grace Abdul MCHC (RBC) [Mass/Vol] 33.3 g/dL Normal 29.9-35.2 [facility] Comment on above: Performed By: #### C BC ####[facility] S[address]fjvzpr[address] [place] [address]Dr. Grace Abdul MCV (RBC) [Entitic vol] 91.4 fL Normal 81.0-99.0 [facility] Comment on above: Performed By: #### C BC ####[facility] T[address]ob[address]hpwn[address] [place] [address]Dr. Grace Abdul MONO # 0.7 103/ul Normal 0.3-0.8 [facility] Comment on above: Performed By: #### C BC ####[facility] Ft[address]wo[address] [place], [place] [address]Dr. Grace Abdul Monocytes/100 WBC (Bld) 13.5 % Critically high 1.7-12.0 [facility] Comment on above: Performed By: #### C BC ####[facility] [address]rx[address] [place], [place] [address]Dr. Grace Abdul NEUT # 3.8 103/ul Normal 1.4-6.5 [facility] Comment on above: Performed By: #### C BC ####[facility] [address] [place], [place] [address]Dr. Grace Abdul Neutrophils/100 WBC (Bld) 70.5 % Normal 43.0-75.0 [facility] Comment on above: Performed By: #### C BC ####[facility] T[address] [place], [place] [address]Dr. Grace Abdul Platelet mean volume (Bld) [Entitic vol] 9.0 fL Critically low 9.5-13.5 [facility] Comment on above: Performed By: #### C BC ####[facility] X[address] [place], [place] [address]Dr. Grace Abdul PLT 283 103/ul Normal 150-450 [facility] Comment on above: Performed By: #### C BC ####[facility] [address]az[address] [place], [place] [address]ZtLisette Abdul RBC 4.07 106/ul Critically low 4.20-5.40 [facility] Comment on above: Performed By: #### C BC ####[facility] Ray[address]oaqbm47[address] [place], [place] [address]CeLisette Abdul WBC 5.4 103/ul Normal 4.0-11.0 [facility] Comment on above: Performed By: #### C BC ####[facility] Lwfbrwkzpt[address] [place], [place] [address]Yu. Grace Abdul CT ABD/PELV W CONon 04-04-19 [...] EMILY ROSALBA Date: 2022-04-04 16:59 Normal [facility] ER URINE PROFILEon 3 Bilirubin Ql (U) Negative Normal NEGATIVE [facility] Comment on above: Performed By: #### GINA FELDERRO ####[facility] [address]msrp[address] [place] [address]Dr. Grace Abdul Clarity (U) CLEAR Normal CLEAR [facility] Comment on above: Performed By: #### Anthony ELLISON UMICRO ####[facility] Yq[address]ugkzmw[address] [place] [address]Dr. Grace Abdul Color (U) LT. YELLOW Normal YELLOW [facility] Comment on above: Performed By: #### GINA FELDERRO ####[facility] [address] [place], [place] [address]Dr. Grace Abdul ERUAHD A micrscopic examination will be performed if indicated. Normal [facility] Comment on above: Performed By: #### GODWIN FELDERICRO ####[facility] [address]sh[address] [place] [address]Dr. Grace Abdul Glucose Ql (U) Negative Normal NEGATIVE [facility] Comment on above: Performed By: #### Anthony ELLISON UMICRO ####[facility] R[address]vfjnm[address] [place] [address]Dr. Grace Abdul Hemoglobin Ql (U) SMALL Abnormal NEGATIVE [facility] Comment on above: Performed By: #### Anthony ELLISON UMICRO ####[facility] [address] [place], [place] [address]Dr. Grace Abdul Ketones Ql (U) Negative Normal NEGATIVE [facility] Comment on above: Performed By: #### GINA FELDERRO ####[facility] K[address]zxh[address] [place] [address]Dr. Grace Abdul LEUKOCYTES TRACE Abnormal NEGATIVE [facility] Comment on above: Performed By: #### GINA FELDERRO ####[facility] [address] [place], [place] [address]Dr. Grace Abdul Nitrite Ql (U) Negative Normal NEGATIVE [facility] Comment on above: Performed By: #### ROBERT FELDER ####[facility] Inxmetoabs[address] [place] [address]Dr. Grace Abdul pH (U) 7.5 [pH] Normal 5-9 [facility] Comment on above: Performed By: #### ROBERT FELDER ####[facility] [address]cq[address] [place] [address]Dr. Grace Abdul SPEC GRAVITY 1.005 Normal 1.005-<=1.025 [facility] Comment on above: Performed By: #### ROBERT FELDER ####[facility] Br[address]ay[address] [place] [address]Dr. Grace Abdul UA PROTEIN Negative Normal NEGATIVE/ TRACE [facility] Comment on above: Performed By: #### ROBERT FELDER ####[facility] [address] [place] [address]Dr. Grace Abdul UR MICRO IND INDICATED Normal [facility] Comment on above: Performed By: #### ROBERT FELDER ####[facility] [address]wwm[address] [place] [address]Dr. Grace Abdul Urobilinogen Qn (U) 0.2 {Ashley'U}/dL Normal 0.2 - 1. 0 [facility] Comment on above: Performed By: #### GINA FELDERRO ####[facility] X[address] [place] [address]Dr. Grace Abdul LIPASEon 04-04-2022 Lipase [Catalytic activity/Vol] 115.0 U/L Normal 73.0-393.0 [facility] Comment on above: Performed By: #### C VDTB #### [facility] [address] [address] [address] Grace Abdul PROF 14(COMP METB)on 023 Albumin [Mass/Vol] 3.6 g/dL Normal 3.4-5.0 [facility] Comment on above: Performed By: #### C VDTBH #### [facility] [address] [address] [address] Grace Abdul Albumin/Globulin [Mass ratio] 1.1 {ratio} Normal [facility] Comment on above: Performed By: #### C VDTBH #### [facility] [address] [address] [address] Grace Abdul ALP [Catalytic activity/Vol] 74 U/L Normal 46-116 [facility] Comment on above: Performed By: #### C VDTBH #### [facility] [address] [address] [address] Grace Abdul ALT [Catalytic activity/Vol] 23 U/L Normal 14-59 [facility] Comment on above: Performed By: #### C VDTBH #### [facility] [address] [place] [address] Dr. Grace Abdlu Anion gap [Moles/Vol] 12.1 mmol/L Normal [facility] Comment on above: Performed By: #### C VDTBH #### [facility] [address] [place] [address] Dr. Grace Abdul AST [Catalytic activity/Vol] 21 U/L Normal 15-37 [facility] Comment on above: Performed By: #### C VDTBH #### [facility] [address] [place] [address] Dr. Grace Abdul Bilirubin [Mass/Vol] 0.2 mg/dL Normal 0.2-1.0 [facility] Comment on above: Performed By: #### C VDTBH #### [facility] [address] [place] [address] Dr. Grace Abdul Calcium [Mass/Vol] 9.3 mg/dL Normal 8.5-10.1 [facility] Comment on above: Performed By: #### C VDTBH #### [facility] [address] [place] [address] Dr. Grace Abdul Chloride [Moles/Vol] 99 mmol/L Normal 98-107 [facility] Comment on above: Performed By: #### C VDTBH #### [facility] [address] [address] [address] Grace Abdul CO2 [Moles/Vol] 31.2 mmol/L Normal 21.0-32.0 [facility] Comment on above: Performed By: #### C VDTBH #### [facility] [address] [address] [address] Grace Abdul Creatinine [Mass/Vol] 1.22 mg/dL Critically high 0.55-1.02 [facility] Comment on above: Performed By: #### C VDTBH #### [facility] [address] [address] [address] Grace Abdul EGFR-AF VIET[place]ESE 51 mL/min/1.73m2 Critically low >=60 [facility] Comment on above: Performed By: #### C VDTBH #### [facility] [address] [place] [address] Dr. Grace Abdul EGFR-NON AF VIET[place]ESE 42 mL/min/1.73m2 Critically low >=60 [facility] Comment on above: Performed By: #### C VDTBH #### [facility] [address] [address] [address] Grace Abdul Globulin (S) [Mass/Vol] 3.3 g/dL Normal [facility] Comment on above: Performed By: #### C VDTBH #### [facility] [address] [address] [address] Grace Abdul Glucose [Mass/Vol] 115 mg/dL Critically high 74-106 [facility] Comment on above: Performed By: #### C VDTBH #### [facility] [address] [address] [address] Grace Abdul Potassium [Moles/Vol] 3.3 mmol/L Critically low 3.5-5.1 [facility] Comment on above: Performed By: #### C VDTBH #### [facility] [address] [address] [address] Grace Abdul Protein [Mass/Vol] 6.9 g/dL Normal 6.4-8.2 [facility] Comment on above: Performed By: #### C VDTBH #### [facility] [address] [address] [address] Grace Abdul Sodium [Moles/Vol] 139 mmol/L Normal 136-145 [facility] Comment on above: Performed By: #### C VDTBH #### [facility] [address] [address] [address] Grace Abdul Urea nitrogen [Mass/Vol] 23.0 mg/dL Critically high 7.0-18.0 [facility] Comment on above: Performed By: #### C VDTBH #### [facility] [address] [address] [address] Grace Abdul Urea nitrogen/Creatinine [Mass ratio] 18.9 mg/mg Normal [facility] Comment on above: Performed By: #### C VDTB #### [facility] [address] [address] [address] Grace Abdul URINE MICROSCOPIC ONLYon BACTERIA NONE SEEN Normal NONE SEEN [facility] Comment on above: Performed By: #### Anthony ELLISON ICRO ####[facility] [address] [address]Dr. Grace Abdul Bacteria identified Cx Nom (U) NOT INDICATED Normal [facility] Comment on above: Performed By: #### GODWIN FELDERICRO ####[facility] [address] [address]Dr. Grace Abdul CAST NONE SEEN Normal NONE SEEN [facility] Comment on above: Performed By: #### Anthony ELLISON UMICRO ####[facility] [address] [address]Dr. Grace Abdul Crystals LM Nom (Urine sed) NONE SEEN Normal NONE SEEN [facility] Comment on above: Performed By: #### Anthony ELLISON UMICRO ####[facility] [address] [address]Dr. Grace Abdul Epithelial cells LM Ql (Urine sed) RARE Normal NONE SEEN /RARE [facility] Comment on above: Performed By: #### ROBERT FELDER ####[facility] [address] [id number]. Grace Abdul MUCOUS NONE SEEN Normal NONE SEEN [facility] Comment on above: Performed By: #### ROBERT FELDER ####[facility] [address] [id number]. Grace Abdul RBC 0-2 Normal 0-2 [facility] Comment on above: Performed By: #### ROBERT FELDER ####[facility] [address] [id number]. Grace Abdul WBC 0-2 Abnormal NONE SEEN [facility] Comment on above: Performed By: #### ROBERT FELDER ####[facility] [address] [address]DrLisette Abdul BNPon 12-11-2021 Natriuretic peptide B (Bld) [Mass/Vol] 665.0 pg/mL Normal <=1,800.0 [facility] Comment on above: Performed By: #### B MP #### [facility] [address] [address] [address] Grace Abdul CBC AUTO DIFFon 12-11-2021 BASO # 0.0 103/ul Normal 0.0-0.1 [facility] Comment on above: Performed By: #### C BC ####[facility] [address] [address]Dr. Grace Abdul Basophils/100 WBC (Bld) 0.5 % Normal 0.2-2.0 [facility] Comment on above: Performed By: #### C BC ####[facility] [address] [id number] Abdul EO # 0.1 103/ul Normal 0.0-0.7 [facility] Comment on above: Performed By: #### C BC ####[facility] [address] [id number] Abdul Eosinophils/100 WBC (Bld) 1.9 % Normal 0.9-7.0 [facility] Comment on above: Performed By: #### C BC ####[facility] [address] [address]Dr. Grace Abdul Erythrocyte distribution width (RBC) [Ratio] 13.4 % Normal 11.0-15.0 [facility] Comment on above: Performed By: #### C BC ####[facility] [address] [place], [place] [address]Dr. Grace Abdul Hematocrit (Bld) [Volume fraction] 36.2 % Normal 36.0-48.0 [facility] Comment on above: Performed By: #### C BC ####[facility] Uq[address] [place], [place] [address]Dr. Grace Abdul Hemoglobin (Bld) [Mass/Vol] 11.9 g/dL Critically low 12.0-16.0 [facility] Comment on above: Performed By: #### C BC ####[facility] [address] [place], [place] [address]Dr. Grace Abdul IG # 0.01 10e3/ul Normal 0.00-0.03 [facility] Comment on above: Performed By: #### C BC ####[facility] [address] [place], [place] [address]Dr. Grace Abdul IG % 0.2 % Normal 0.0-0.5 [facility] Comment on above: Performed By: #### C BC ####[facility] [address] [place], [place] [address]Dr. Grace Abdul LYMPH # 0.5 103/ul Critically low 1.2-3.8 [facility] Comment on above: Performed By: #### C BC ####[facility] [address] [place], [place] [address]Dr. Grace Abdul Lymphocytes/100 WBC (Bld) 11.5 % Critically low 20.5-60.0 [facility] Comment on above: Performed By: #### C BC ####[facility] [address] [place], [place] [address]Dr. Grace Abdul MANUAL DIFF REQ NO Normal [facility] Comment on above: Performed By: #### C BC ####[facility] [address] [id number]. Grace Abdul MCH (RBC) [Entitic mass] 31.6 pg Normal 26.7-34.0 [facility] Comment on above: Performed By: #### C BC ####[facility] [address] [address]Dr. Grace Franko MCHC (RBC) [Mass/Vol] 32.9 g/dL Normal 29.9-35.2 [facility] Comment on above: Performed By: #### C BC ####[facility] [address] [address]Dr. Grace Franko MCV (RBC) [Entitic vol] 96.0 fL Normal 81.0-99.0 [facility] Comment on above: Performed By: #### C BC ####[facility] E[address]blr[address] [place], [place] [address]Dr. Grace Abdul MONO # 0.6 103/ul Normal 0.3-0.8 [facility] Comment on above: Performed By: #### C BC ####[facility] [address] [place], [place] [address]Dr. Benitalee ann Abdul Monocytes/100 WBC (Bld) 14.4 % Critically high 1.7-12.0 [facility] Comment on above: Performed By: #### C BC ####[facility] [address] [place], [place] [address]Dr. Benitalee ann Abdul NEUT # 3.0 103/ul Normal 1.4-6.5 [facility] Comment on above: Performed By: #### C BC ####[facility] [address] [place], [place] [address]DrLisette Abdul Neutrophils/100 WBC (Bld) 71.5 % Normal 43.0-75.0 [facility] Comment on above: Performed By: #### C BC ####[facility] [address] [place], [place] [address]DrLisette Abdul Platelet mean volume (Bld) [Entitic vol] 9.2 fL Critically low 9.5-13.5 [facility] Comment on above: Performed By: #### C BC ####[facility] [address] [place], [place] [address]Dc. Grace Abdul PLT 290 103/ul Normal 150-450 [facility] Comment on above: Performed By: #### C BC ####[facility] [address] [place], [place] [address]Lg. Grace Abdul RBC 3.77 106/ul Critically low 4.20-5.[address] [facility] Comment on above: Performed By: #### C BC ####[facility] [address] [place], [place] [address]Qe. Grace Abdul WBC 4.2 103/ul Normal 4.0-11.0 [facility] Comment on above: Performed By: #### C BC ####[facility] [address] [id number]. Grace Abdul FREE THYROXINE INDEX T7on FTI 2.63 Normal 1.30-4.50 [facility] Comment on above: Performed By: #### B MP #### [facility] [address] [address] [address] Grace Abdul T3U 35.0 % Normal 30.0-39.0 [facility] Comment on above: Performed By: #### B MP #### [facility] [address] [address] [address] Grace Abdul T4 [Mass/Vol] 7.50 ug/dL Normal 4.80-13.90 [facility] Comment on above: Performed By: #### B MP #### [facility] [address] [address] [address] Grace Abdul GLYCOHEMOGLOBIN A1Con 2021 ADA RECOMMENDATION SEE BELOW Normal [facility] Comment on above: Result Comment: ADA RECOMMENDED LIMIT 4.0 - 6.0 ADA THERAPEUTIC TARGET < 7.0 ACTION SUGGESTED > 7.0 Performed By: #### A 1C ####[facility] [address] [address]Dr. Grace Abdul Glucose [Mass/Vol] 111 mg/dL Normal [facility] Comment on above: Performed By: #### A 1C ####[facility] [address] [address]DrLisette Abdul HbA1c (Bld) [Mass fraction] 5.5 % Normal 4.5-6.2 [facility] Comment on above: Performed By: #### A 1C ####[facility] [address] [address]DrLisette Abdul IRONon 12-11-2021 Iron [Mass/Vol] 50.0 ug/dL Normal 50.0-170.[address] [facility] Comment on above: Performed By: #### I KASANDRA WEBSTER, VITB12 ####[facility] [address] [address]Dr. Grace Abdul LIPID PROFILEon 12-11-2021 CHOL-HDL RATIO NORM SEE BELOW Normal [facility] Comment on above: Result Comment: 3.3 - 4.4 LOW RISK 4.4 - 7.1 AVERAGE RISK 7.1 - 11.0 MODERATE RISK >11.0 HIGH RISK Performed By: #### B MP #### [facility] [address] [address] [address] Grace Abdul Cholesterol [Mass/Vol] 182 mg/dL Normal <=200 [facility] Comment on above: Performed By: #### B MP #### [facility] [address] [address] [address] Grace Abdul Cholesterol in HDL [Mass/Vol] 60 mg/dL Normal 40-60 [facility] Comment on above: Performed By: #### B MP #### [facility] [address] [address] [address] Grace Abdul Cholesterol in LDL [Mass/Vol] 101.2 mg/dL Normal [facility] Comment on above: Performed By: #### B MP #### [facility] [address] [address] [address] Grace Abdul Cholesterol.total/Ch olesterol in HDL [Mass ratio] 3.0 {ratio} Normal [facility] Comment on above: Performed By: #### B MP #### [facility] [address] [address] [address] Grace Abdul HDL NORMAL > or = 60 mg/dl - LO W CARDIOVASCULAR RISK <40 mg/dl - HIGH CARDIOVASCULAR RISK Normal [facility] Comment on above: Performed By: #### B MP #### [facility] [address] [address] [address] Grace Abdul LDL CALC NORMAL SEE BELOW Normal [facility] Comment on above: Result Comment: <100 mg/dl OPTIMAL 100 - 129 mg/dl NEAR OR ABOVE OPTIMAL 130 - 159 mg/dl BORDERLINE HIGH 160 - 189 mg/dl HIGH >190 mg/dl VERY HIGH Performed By: #### B MP #### [facility] [address] [place] [address] Dr. Grace Abdul Triglyceride [Mass/Vol] 104 mg/dL Normal <=150 [facility] Comment on above: Performed By: #### B MP #### [facility] [address] [address] [address] Grace Abdul VLDL CALC 20.8 mg/dL Normal [facility] Comment on above: Performed By: #### B MP #### [facility] [address] [place] [address] Dr. Grace Abdul PROF 14(COMP METB)on 022 Albumin [Mass/Vol] 3.5 g/dL Normal 3.4-5.0 [facility] Comment on above: Performed By: #### B MP #### [facility] [address] [place] [address] Dr. Grace Abdul Albumin/Globulin [Mass ratio] 1.0 {ratio} Normal [facility] Comment on above: Performed By: #### B MP #### [facility] [address] [place] [address] Dr. Grace Abdul ALP [Catalytic activity/Vol] 55 U/L Normal 46-116 [facility] Comment on above: Performed By: #### B MP #### [facility] [address] [place] [address] Dr. Grace Abdul ALT [Catalytic activity/Vol] 21 U/L Normal 14-59 [facility] Comment on above: Performed By: #### B MP #### [facility] [address] [address] [address] Grace Abdul Anion gap [Moles/Vol] 9.3 mmol/L Normal [facility] Comment on above: Performed By: #### B MP #### [facility] [address] [address] [address] Grace Abdul AST [Catalytic activity/Vol] 21 U/L Normal 15-37 [facility] Comment on above: Performed By: #### B MP #### [facility] [address] [address] [address] Grace Abdul Bilirubin [Mass/Vol] 0.3 mg/dL Normal 0.2-1.0 [facility] Comment on above: Performed By: #### B MP #### [facility] [address] [address] [address] Grace Abdul Calcium [Mass/Vol] 9.5 mg/dL Normal 8.5-10.1 [facility] Comment on above: Performed By: #### B MP #### [facility] [address] [address] [address] Grace Abdul Chloride [Moles/Vol] 102 mmol/L Normal 98-107 [facility] Comment on above: Performed By: #### B MP #### [facility] [address] [address] [address] Grace Abdul CO2 [Moles/Vol] 28.5 mmol/L Normal 21.0-32.0 [facility] Comment on above: Performed By: #### B MP #### [facility] [address] [address] [address] Grace Abdul Creatinine [Mass/Vol] 1.04 mg/dL Critically high 0.55-1.02 [facility] Comment on above: Performed By: #### B MP #### [facility] [address] [address] [address] Grace Abdul EGFR-AF VIETNAMESE >60 Normal >=60 [facility] Comment on above: Performed By: #### B MP #### [facility] [address] [address] [address] Grace Abdul EGFR-NON AF VIETNAMESE 51 mL/min/1.73m2 Critically low >=60 [facility] Comment on above: Performed By: #### B MP #### [facility] [address] [address] [address] Grace Abdul Globulin (S) [Mass/Vol] 3.5 g/dL Normal [facility] Comment on above: Performed By: #### B MP #### [facility] [address] [address] [address] Grace Abdul Glucose [Mass/Vol] 102 mg/dL Normal 74-106 [facility] Comment on above: Performed By: #### B MP #### [facility] [address] [address] [address] Grace Abdul Potassium [Moles/Vol] 3.8 mmol/L Normal 3.5-5.1 [facility] Comment on above: Performed By: #### B MP #### [facility] [address] [address] [address] Grace Abdul Protein [Mass/Vol] 7.0 g/dL Normal 6.4-8.2 [facility] Comment on above: Performed By: #### B MP #### [facility] [address] [address] [address] Grace Abdul Sodium [Moles/Vol] 136 mmol/L Normal 136-145 [facility] Comment on above: Performed By: #### B MP #### [facility] [address] [address] [address] Grace Abdul Urea nitrogen [Mass/Vol] 20.0 mg/dL Critically high 7.0-18.0 [facility] Comment on above: Performed By: #### B MP #### [facility] [address] [address] [address] Grace Abdul Urea nitrogen/Creatinine [Mass ratio] 19.2 mg/mg Normal [facility] Comment on above: Performed By: #### B MP #### [facility] [address] [address] [address] Grace Abdul TSHon 12-11-2021 TSH 0.247 uIU/mL Critically low 0.358-3.740 [facility] Comment on above: Performed By: #### B MP #### [facility] [address] [address] [address] Grace Abdul VITAMIN B12on 12-11-2021 Cobalamin (Vitamin B12) [Mass/Vol] 762.0 pg/mL Normal 193.0-986.0 [facility] Comment on above: Performed By: #### I DARIN VITAD, VITB12 ####[facility] [address] [address]Dr. Grace Abdul VITAMIN D 25 OHon 12-11-2021 VIT D 25-OH 54.9 ng/mL Normal [facility] Comment on above: Performed By: #### I DARIN VITAD, VITB12 ####[facility] [address] [address]DrLisette Abdul VIT D RANGES SEE BELOW Normal [facility] Comment on above: Result Comment: <20 ng/mL Vit D deficient 20 - <30 ng/mL Vit D insufficient 30 - 100 ng/mL Vit D sufficient >100 ng/mL Potential Toxicity Performed By: #### I DARIN, VITAD, VITB12 ####[facility] [address] [address]DrLisette Abdul MG MAMM SCREEN 3D CLEMENCIA CADon 11-25-2021 MG MAMM SCREEN 3D CLEMENCIA CAD Patient: ALEXA DELGADO Exam Date: 11/25/2021 : 1940 Gender:F Ordering : DR GALINA ROGERS . Admission #: [id number] Family : DR ARMANDO MORALES Order #: [id number] CLICK HERE TO VIEW EXAM RADIOLOGY REPORT [...] Family Cancers None LOCATION: [facility] BREAST COMPOSITION: Scattered areas fibroglandular [...] 11/25/2021 at 14:14 Normal [facility] CULTURE URINEon 11-24-2021 CULTURE URINE Culture Observations : LIGHT GROWTH OF MIXED GENITAL ALANIS. NO POTENTIAL PATHOGENS SEEN. Normal [facility] Comment on above: Performed By: #### U RCX ####[facility] [address] [address]Dr. Grace Abdul GI PANEL (PCR)on 11-24-2021 Adenovirus F 40/41 Not detected Normal NOT DETECTED [facility] Comment on above: Performed By: #### C BC #### [facility] [address] [place] [address] Dr. Grace Abdul Astrovirus Not detected Normal NOT DETECTED [facility] Comment on above: Performed By: #### C BC #### [facility] [address] [address] [address] Grace Abdul C. Diff toxin A/B Not detected Normal NOT DETECTED [facility] Comment on above: Performed By: #### C BC #### [facility] [address] [address] [address] Grace Abdul Campylobacter Not detected Normal NOT DETECTED [facility] Comment on above: Performed By: #### C BC #### [facility] [address] [place] [address] Dr. Grace Abdul Cryptosporidium Not detected Normal NOT DETECTED [facility] Comment on above: Performed By: #### C BC #### [facility] [address] [place] [address] Dr. Grace Abdul Cyclos. Cayetanensis Not detected Normal NOT DETECTED [facility] Comment on above: Performed By: #### C BC #### [facility] [address] [place] [address] Dr. Grace Abdul E. Coli O157 Not Applicable Normal Not Applicable [facility] Comment on above: Performed By: #### C BC #### [facility] [address] [place] [address] Dr. Grace Abdul E. histolytica Not detected Normal NOT DETECTED [facility] Comment on above: Performed By: #### C BC #### [facility] [address] [place] [address] Dr. Grace Abdul EAEC Not detected Normal NOT DETECTED [facility] Comment on above: Performed By: #### C BC #### [facility] [address] [place] [address] Dr. Grace Abdul EIEC Not detected Normal NOT DETECTED [facility] Comment on above: Performed By: #### C BC #### [facility] [address] [place] [address] Dr. Grace Abdul EPEC Not detected Normal NOT DETECTED [facility] Comment on above: Performed By: #### C BC #### [facility] [address] [place] [address] Dr. Grace Abdul ETEC Not detected Normal NOT DETECTED [facility] Comment on above: Performed By: #### C BC #### [facility] [address] [place] [address] Dr. Grace Abdul G. Lamblia Not detected Normal NOT DETECTED [facility] Comment on above: Performed By: #### C BC #### [facility] [address] [place] [address] Dr. Grace BURGESSL CONTROLS PASSED Normal [facility] Comment on above: Performed By: #### C BC #### [facility] [address] [place] [address] Dr. Grace NOLASCONL KAUR HEADER GI PANEL BACTERIA Normal T [facility] Comment on above: Performed By: #### C BC #### [facility] [address] [address] [address] Grace SANDERS ECOLI GI PANEL DIARRHEAGEN IC E.COLI / SHIGELLA Normal [facility] Comment on above: Performed By: #### C BC #### [facility] [address] [address] [address] Grace SANDERS INFO SEE BELOW Normal [facility] Comment on above: Result Comment: EAEC - Enteroaggregative E. Coli EPEC- Enteropathogenic E. Coli ETEC- Enterotoxigenic E. Coli lt/st STEC- Shigella-like toxin-producing E. Coli stx1/stx2 EIEC- Shigella/Enteroinvasive E. Coli Performed By: #### C BC #### [facility] [address] [address] [address] Grace SANDERS PARASITES GI PANEL PARASITES Normal [facility] Comment on above: Performed By: #### C BC #### [facility] [address] [address] [address] Grace SANDERS VIRUS GI PANEL VIRUSES Normal [facility] Comment on above: Performed By: #### C BC #### [facility] [address] [address] [address] Grace Abdul Norovirus GI/GII Not detected Normal NOT DETECTED [facility] Comment on above: Performed By: #### C BC #### [facility] [address] [address] [address] Grace Abdul P. Shigelloides Not detected Normal NOT DETECTED [facility] Comment on above: Performed By: #### C BC #### [facility] [address] [address] [address] Grace Abdul Rotavirus A Not detected Normal NOT DETECTED [facility] Comment on above: Performed By: #### C BC #### [facility] [address] [place] [address] Dr. Grace Abdul Salmonella Not detected Normal NOT DETECTED [facility] Comment on above: Performed By: #### C BC #### [facility] [address] [place] [address] Dr. Grace Abdul Sapovirus Not detected Normal NOT DETECTED [facility] Comment on above: Performed By: #### C BC #### [facility] [facility] [address] [place] [address] Dr. Grace Abdul STEC Not detected Normal NOT DETECTED [facility] Comment on above: Performed By: #### C BC #### [facility] [address] [place] [address] Dr. Grace Abdul Vibrio Not detected Normal NOT DETECTED [facility] Comment on above: Performed By: #### C BC #### [facility] [address] [place] [address] Dr. Grace Abdul Vibrio Cholera Not detected Normal NOT DETECTED [facility] Comment on above: Performed By: #### C BC #### [facility] [address] [place] [address] Dr. Grace Abdul Y. Enterocolitica Not detected Normal NOT DETECTED [facility] Comment on above: Performed By: #### C BC #### [facility] [address] [place] [address] Dr. Grace Abdul UA RANDOM W/MICROSCOPICon BACTERIA NONE SEEN Normal NONE SEEN [facility] Comment on above: Performed By: #### U AMIC ####[facility] [address] [place] [address]DrLisette Abdul Bilirubin Ql (U) Negative Normal NEGATIVE [facility] Comment on above: Performed By: #### U AMIC ####[facility] [address] [place] [address]DrLisette Abdul CAST NONE SEEN Normal NONE SEEN [facility] Comment on above: Performed By: #### U AMIC ####[facility] [address] [place] [address]DrLisette Abdul Clarity (U) CLEAR Normal CLEAR [facility] Comment on above: Performed By: #### U AMIC ####[facility] [address] [place] [address]DrLisette Abdul Color (U) LT. YELLOW Normal YELLOW [facility] Comment on above: Performed By: #### U AMIC ####[facility] [address] [place] [address]Dr. Grace Abdul Crystals LM Nom (Urine sed) NONE SEEN Normal NONE SEEN [facility] Comment on above: Performed By: #### U AMIC ####[facility] [address] [place] [address]Dr. Grace Abdul Epithelial cells LM Ql (Urine sed) FEW Abnormal NONE SEEN /RARE [facility] Comment on above: Performed By: #### U AMIC ####[facility] [address] [place] [address]Dr. Grace Abdul Glucose Ql (U) Negative Normal NEGATIVE [facility] Comment on above: Performed By: #### U AMIC ####[facility] [address] [place] [address]Dr. Grace Abdul Hemoglobin Ql (U) TRACE-INTACT Abnormal NEGATIVE [facility] Comment on above: Performed By: #### U AMIC ####[facility] [address] [place], [place] [address]Dr. Grace Abdul Ketones Ql (U) Negative Normal NEGATIVE [facility] Comment on above: Performed By: #### U AMIC ####[facility] [address] [place] [address]Dr. Grace Abdul LEUKOCYTES Negative Normal NEGATIVE [facility] Comment on above: Performed By: #### U AMIC ####[facility] [address] [place], [place] [address]Dr. Grace Abdul MUCOUS NONE SEEN Normal NONE SEEN [facility] Comment on above: Performed By: #### U AMIC ####[facility] [address] [place], [place] [address]Dr. Grace bAdul Nitrite Ql (U) Negative Normal NEGATIVE [facility] Comment on above: Performed By: #### U AMIC ####[facility] [address] [place] [address]Dr. Grace Abdul pH (U) 7.5 [pH] Normal 5-9 [facility] Comment on above: Performed By: #### U AMIC ####[facility] [address] [place] [id number]. Graec Abdul RBC 0-2 Normal 0-2 [facility] Comment on above: Performed By: #### U AMIC ####[facility] [address] [place] [id number]. Grace Abdul SPEC GRAVITY 1.010 Normal 1.005-<=1.025 The [facility] Comment on above: Performed By: #### U AMIC ####[facility] [address] [place] [id number]. Grace Adbul UA PROTEIN Negative Normal NEGATIVE/ TRACE [facility] Comment on above: Performed By: #### U AMIC ####[facility] [address]us[address] [place] [address]Dr. Grace Abdul Urobilinogen Qn (U) 0.2 {Ashley'U}/dL Normal 0.2 - 1. 0 [facility] Comment on above: Performed By: #### U AMIC ####[facility] [address] [place] [address]Dr. Grace Abdul WBC NONE SEEN Normal NONE SEEN [facility] Comment on above: Performed By: #### U AMIC ####[facility] [address] [place] [address]Dr. Grace Abdul CBC AUTO DIFFon 11-23-2021 BASO # 0.0 103/ul Normal 0.0-0.1 [facility] Comment on above: Performed By: #### C BC #### [facility] [address] [address] [address] Grace Abdul Basophils/100 WBC (Bld) 0.4 % Normal 0.2-2.0 [facility] Comment on above: Performed By: #### C BC #### [facility] [address] [address] [address] Grace Adbul EO # 0.1 103/ul Normal 0.0-0.7 [facility] Comment on above: Performed By: #### C BC #### [facility] [address] [place] [address] Dr. Grace Abdul Eosinophils/100 WBC (Bld) 1.5 % Normal 0.9-7.0 [facility] Comment on above: Performed By: #### C BC #### [facility] [address] [place] [address] Dr. Grace Abdul Erythrocyte distribution width (RBC) [Ratio] 13.2 % Normal 11.0-15.0 [facility] Comment on above: Performed By: #### C BC #### [facility] [address] [place] [address] Dr. Grace Abdul Hematocrit (Bld) [Volume fraction] 31.9 % Critically low 36.0-48.0 [facility] Comment on above: Performed By: #### C BC #### [facility] [address] [place] [address] Dr. Grace Abdul Hemoglobin (Bld) [Mass/Vol] 10.5 g/dL Critically low 12.0-16.0 [facility] Comment on above: Performed By: #### C BC #### [facility] [address] [place] [address] Dr. Grace Abdul IG # 0.01 10e3/ul Normal 0.00-0.03 [facility] Comment on above: Performed By: #### C BC #### [facility] [address] [place] [address] Dr. Grace Abdul IG % 0.2 % Normal 0.0-0.5 [facility] Comment on above: Performed By: #### C BC #### [facility] [address] [place] [address] Dr. Grace Abdul LYMPH # 0.7 103/ul Critically low 1.2-3.8 [facility] Comment on above: Performed By: #### C BC #### [facility] [address] [place] [address] Dr. Grace Abdul Lymphocytes/100 WBC (Bld) 14.8 % Critically low 20.5-60.0 [facility] Comment on above: Performed By: #### C BC #### [facility] [address] [place] [address] Dr. Grace Abdul MANUAL DIFF REQ NO Normal [facility] Comment on above: Performed By: #### C BC #### [facility] [address] [place] [address] Dr. Grace Abdul MCH (RBC) [Entitic mass] 31.4 pg Normal 26.7-34.0 [facility] Comment on above: Performed By: #### C BC #### [facility] [address] [place] [address] Dr. Grace Abdul MCHC (RBC) [Mass/Vol] 32.9 g/dL Normal 29.9-35.2 [facility] Comment on above: Performed By: #### C BC #### [facility] [address] [place] [address] Dr. Grace Abdul MCV (RBC) [Entitic vol] 95.5 fL Normal 81.0-99.0 [facility] Comment on above: Performed By: #### C BC #### [facility] [address] [place] [address] Dr. Grace Abdul MONO # 0.6 103/ul Normal 0.3-0.8 [facility] Comment on above: Performed By: #### C BC #### [facility] [address] [place] [address] Dr. Grace Abdul Monocytes/100 WBC (Bld) 13.4 % Critically high 1.7-12.0 [facility] Comment on above: Performed By: #### C BC #### [facility] [address] [place] [address] Dr. Grace Abdul NEUT # 3.3 103/ul Normal 1.4-6.5 [facility] Comment on above: Performed By: #### C BC #### [facility] [address] [place] [address] Dr. Grace Abdul Neutrophils/100 WBC (Bld) 69.7 % Normal 43.0-75.0 [facility] Comment on above: Performed By: #### C BC #### [facility] [address] [place], [place] [id number] Dr. Grace Abdul Platelet mean volume (Bld) [Entitic vol] 9.1 fL Critically low 9.5-13.5 [facility] Comment on above: Performed By: #### C BC #### [facility] [address] [address] [address] Grace Abdul PLT 335 103/ul Normal 150-450 [facility] Comment on above: Performed By: #### C BC #### [facility] [address] [address] [address] Grace Abdul RBC 3.34 106/ul Critically low 4.20-5.40 [facility] Comment on above: Performed By: #### C BC #### [facility] [address] [address] [address] Grace Abdul WBC 4.8 103/ul Normal 4.0-11.0 [facility] Comment on above: Performed By: #### C BC #### [facility] [address] [address] [address] Grace Abdul FREE THYROXINE INDEX T7on FTI 1.15 Critically low 1.30-4.50 [facility] Comment on above: Performed By: #### T 7, CMP, TSH ####[facility] [address] [place] [address]DrLisette Abdul T3U 31.0 % Normal 30.0-39.0 [facility] Comment on above: Performed By: #### T 7, CMP, TSH ####[facility] [address] [place] [address]Dr. Grace Abdul T4 [Mass/Vol] 3.70 ug/dL Critically low 4.80-13.90 The [facility] Comment on above: Performed By: #### T 7, CMP, TSH ####[facility] [address] [place] [address]Dr. Grace Abdul IRONon 11-23-2021 Iron [Mass/Vol] 52.0 ug/dL Normal 50.0-170.0 The [facility] Comment on above: Performed By: #### C VDTBH #### [facility] [address] [place], [place] [address] Dr. Grace Abdul PROF 14(COMP METB)on 022 Albumin [Mass/Vol] 3.5 g/dL Normal 3.4-5.0 [facility] Comment on above: Performed By: #### T 7, CMP, TSH ####[facility] [address] [place] [id number]. Grace Abdul Albumin/Globulin [Mass ratio] 1.1 {ratio} Normal [facility] Comment on above: Performed By: #### T 7, CMP, TSH ####[facility] [address] [place] [address]Dr. Grace Abdul ALP [Catalytic activity/Vol] 69 U/L Normal 46-116 [facility] Comment on above: Performed By: #### T 7, CMP, TSH ####[facility] [address] [place] [address]Dr. Grace Abdul ALT [Catalytic activity/Vol] 51 U/L Normal 14-59 [facility] Comment on above: Performed By: #### T 7, CMP, TSH ####[facility] [address] [place] [address]Dr. Grace Abdul Anion gap [Moles/Vol] 11.5 mmol/L Normal [facility] Comment on above: Performed By: #### T 7, CMP, TSH ####[facility] [address] [place] [address]Dr. Grace Abdul AST [Catalytic activity/Vol] 24 U/L Normal 15-37 [facility] Comment on above: Performed By: #### T 7, CMP, TSH ####[facility] [address] [place] [id number]. Grace Abdul Bilirubin [Mass/Vol] 0.2 mg/dL Normal 0.2-1.0 [facility] Comment on above: Performed By: #### T 7, CMP, TSH ####[facility] [address] [place] [address]Dr. Grace Abdul Calcium [Mass/Vol] 9.3 mg/dL Normal 8.5-10.1 [facility] Comment on above: Performed By: #### T 7, CMP, TSH ####[facility] [address] [place] [address]Dr. Grace Abdul Chloride [Moles/Vol] 98 mmol/L Normal 98-107 [facility] Comment on above: Performed By: #### T 7, CMP, TSH ####[facility] [address] [place] [address]Dr. Grace Abdul CO2 [Moles/Vol] 28.7 mmol/L Normal 21.0-32.0 [facility] Comment on above: Performed By: #### T 7, LEONOR, TSH ####[facility] [address] [place], [place] [address]Dr. Grace Abdul Creatinine [Mass/Vol] 1.11 mg/dL Critically high 0.55-1.02 [facility] Comment on above: Performed By: #### Ainsley 7, LEONOR, TSH ####[facility] [address] [place] [address]Dr. Grace Abdul EGFR-AF VIET[place]ESE 57 mL/min/1.73m2 Critically low >=60 [facility] Comment on above: Performed By: #### T 7, LEONOR, TSH ####[facility] [address] [place], [place] [address]Dr. Grace Abdul EGFR-NON AF VIET[place]ESE 47 mL/min/1.73m2 Critically low >=60 [facility] Comment on above: Performed By: #### T 7, CMP, TSH ####[facility] [address] [place] [address]Dr. Grace Abdul Globulin (S) [Mass/Vol] 3.3 g/dL Normal [facility] Comment on above: Performed By: #### T 7, CMP, TSH ####[facility] [address] [place] [address]Dr. Grace Abdul Glucose [Mass/Vol] 88 mg/dL Normal 74-106 [facility] Comment on above: Performed By: #### T 7, CMP, TSH ####[facility] [address] [place] [id number]. Grace Abdul Potassium [Moles/Vol] 4.2 mmol/L Normal 3.5-5.1 [facility] Comment on above: Performed By: #### T 7, CMP, TSH ####[facility] [address] [place] [id number]. Grace Abdul Protein [Mass/Vol] 6.8 g/dL Normal 6.4-8.2 [facility] Comment on above: Performed By: #### T 7, CMP, TSH ####[facility] [address] [place] [address]Dr. Grace Abdul Sodium [Moles/Vol] 134 mmol/L Critically low 136-145 [facility] Comment on above: Performed By: #### T 7, CMP, TSH ####[facility] [address] [place] [address]Dr. Grace Abdul Urea nitrogen [Mass/Vol] 33.0 mg/dL Critically high 7.0-18.0 [facility] Comment on above: Performed By: #### T 7, CMP, TSH ####[facility] [address]te[address] [place] [address]Dr. Grace Abdul Urea nitrogen/Creatinine [Mass ratio] 29.7 mg/mg Normal [facility] Comment on above: Performed By: #### T 7, CMP, TSH ####[facility] [address] [place] [address]Dr. Grace Abdul TSHon 11-23-2021 TSH 0.469 uIU/mL Normal 0.358-3.740 [facility] Comment on above: Performed By: #### T 7, CMP, TSH ####[facility] [address] [place] [address]Dr. Grace Abdul CBC AUTO DIFFon 11-17-2021 BASO # 0.0 103/ul Normal 0.0-0.1 [facility] Comment on above: Performed By: #### C VDTBH #### [facility] [address] [address] [address] Grace Abdul Basophils/100 WBC (Bld) 0.2 % Normal 0.2-2.0 [facility] Comment on above: Performed By: #### C VDTBH #### [facility] [address] [place] [address] Dr. Grace Abdul EO # 0.1 103/ul Normal 0.0-0.7 [facility] Comment on above: Performed By: #### C VDTBH #### [facility] [address] [place] [address] Dr. Grace Abdul Eosinophils/100 WBC (Bld) 0.9 % Normal 0.9-7.0 [facility] Comment on above: Performed By: #### C VDTBH #### [facility] [address] [place] [address] Dr. Grace Abdul Erythrocyte distribution width (RBC) [Ratio] 12.8 % Normal 11.0-15.0 [facility] Comment on above: Performed By: #### C VDTBH #### [facility] [address] [place] [address] Dr. Grace Abdul Hematocrit (Bld) [Volume fraction] 35.2 % Critically low 36.0-48.0 [facility] Comment on above: Performed By: #### C VDTBH #### [facility] [address] [place] [address] Dr. Grace Abdul Hemoglobin (Bld) [Mass/Vol] 12.1 g/dL Normal 12.0-16.0 [facility] Comment on above: Performed By: #### C VDTBH #### [facility] [address] [place] [address] Dr. Grace Abdul IG # 0.05 10e3/ul Critically high 0.00-0.03 [facility] Comment on above: Performed By: #### C VDTBH #### [facility] [address] [place] [address] Dr. Grace Abdul IG % 0.6 % Critically high 0.0-0.5 [facility] Comment on above: Performed By: #### C VDTBH #### [facility] [address] [address] [address] Grace Abdul LYMPH # 0.6 103/ul Critically low 1.2-3.8 [facility] Comment on above: Performed By: #### C VDTBH #### [facility] [address] [address] [address] Grace Abdul Lymphocytes/100 WBC (Bld) 7.4 % Critically low 20.5-60.0 [facility] Comment on above: Performed By: #### C VDTBH #### [facility] [address] [address] [address] Grace Abdul MANUAL DIFF REQ NO Normal [facility] Comment on above: Performed By: #### C VDTBH #### [facility] [address] [place] [address] Dr. Grcae Abdul MCH (RBC) [Entitic mass] 31.5 pg Normal 26.7-34.0 [facility] Comment on above: Performed By: #### C VDTBH #### [facility] [address] [place] [address] Dr. Grace Abdul MCHC (RBC) [Mass/Vol] 34.4 g/dL Normal 29.9-35.2 [facility] Comment on above: Performed By: #### C VDTBH #### [facility] [address] [place] [address] Dr. Grace Abdul MCV (RBC) [Entitic vol] 91.7 fL Normal 81.0-99.0 [facility] Comment on above: Performed By: #### C VDTBH #### [facility] [address] [address] [address] Grace Abdul MONO # 1.0 103/ul Critically high 0.3-0.8 [facility] Comment on above: Performed By: #### C VDTBH #### [facility] [address] [place] [address] Dr. Grace Abdul Monocytes/100 WBC (Bld) 12.1 % Critically high 1.7-12.0 [facility] Comment on above: Performed By: #### C VDTBH #### [facility] [address] [address] [address] Grace Abdul NEUT # 6.3 103/ul Normal 1.4-6.5 [facility] Comment on above: Performed By: #### C VDTBH #### [facility] [address] [place] [address] Dr. Grace Abdul Neutrophils/100 WBC (Bld) 78.8 % Critically high 43.0-75.0 [facility] Comment on above: Performed By: #### C VDTBH #### [facility] [address] [place] [address] Dr. Grace Abdul Platelet mean volume (Bld) [Entitic vol] 9.1 fL Critically low 9.5-13.5 [facility] Comment on above: Performed By: #### C VDTBH #### [facility] [address] [place] [address] Dr. Grace Abdul PLT 281 103/ul Normal 150-450 [facility] Comment on above: Performed By: #### C VDTBH #### [facility] [address] [place] [address] Dr. Grace Abdul RBC 3.84 106/ul Critically low 4.20-5.[address] [facility] Comment on above: Performed By: #### C VDTBH #### [facility] [address] [place] [address] Dr. Grace Abdul WBC 8.0 103/ul Normal 4.0-11.0 [facility] Comment on above: Performed By: #### C VDTBH #### [facility] [address] [place] [address] Dr. Grace Abdul MAGNESIUMon 11-17-2021 Magnesium [Mass/Vol] 1.9 mg/dL Normal 1.8-2.4 [facility] Comment on above: Performed By: #### C VDTBH #### [facility] [address] [place] [address] Dr. Grace Abdul PROF CHEM 8 (BAS METB)on Anion gap [Moles/Vol] 13.9 mmol/L Normal [facility] Comment on above: Performed By: #### C VDTBH #### [facility] [address] [place] [address] Dr. Grace Abdul Calcium [Mass/Vol] 8.7 mg/dL Normal 8.5-10.1 [facility] Comment on above: Performed By: #### C VDTBH #### [facility] [address] [place] [address] Dr. Grace Abdul Chloride [Moles/Vol] 101 mmol/L Normal 98-107 [facility] Comment on above: Performed By: #### C VDTBH #### [facility] [address] [place] [address] Dr. Grace Abdul CO2 [Moles/Vol] 24.3 mmol/L Normal 21.0-32.0 [facility] Comment on above: Performed By: #### C VDTBH #### [facility] [address] [place] [address] Dr. Grace Abdul Creatinine [Mass/Vol] 0.89 mg/dL Normal 0.55-1.02 [facility] Comment on above: Performed By: #### C VDTBH #### [facility] [address] [place] [address] Dr. Grace Abdul EGFR-AF VIET[place]ESE >60 Normal >=60 [facility] [facility] Comment on above: Performed By: #### C VDTBH #### [facility] [address] [place] [address] Dr. Grace Abdul EGFR-NON AF VIETNAMESE >60 Normal >=60 [facility] Comment on above: Performed By: #### C VDTBH #### [facility] [address] [place] [address] Dr. Grace Abdul Glucose [Mass/Vol] 97 mg/dL Normal 74-106 [facility] Comment on above: Performed By: #### C VDTBH #### [facility] [address] [place] [address] Dr. Grace Abdul Potassium [Moles/Vol] 3.2 mmol/L Critically low 3.5-5.1 [facility] Comment on above: Performed By: #### C VDTBH #### [facility] [address] [place] [address] Dr. Grace Abdul Sodium [Moles/Vol] 136 mmol/L Normal 136-145 [facility] Comment on above: Performed By: #### C VDTBH #### [facility] [address] [place] [address] Dr. Grace Abdul Urea nitrogen [Mass/Vol] 14.0 mg/dL Normal 7.0-18.0 [facility] Comment on above: Performed By: #### C VDTBH #### [facility] [address] [place] [address] Dr. Grace Abdul Urea nitrogen/Creatinine [Mass ratio] 15.7 mg/mg Normal [facility] Comment on above: Performed By: #### C VDTBH #### [facility] [address] [place] [address] Dr. Grace Abdul CBC AUTO DIFFon 11-16-2021 BASO # 0.0 103/ul Normal 0.0-0.1 [facility] Comment on above: Performed By: #### B MP #### [facility] [address] [place] [address] Dr. Grace Abdul Basophils/100 WBC (Bld) 0.2 % Normal 0.2-2.0 [facility] Comment on above: Performed By: #### B MP #### [facility] [address] [place] [address] Dr. Grace Abdul EO # 0.0 103/ul Normal 0.0-0.7 [facility] Comment on above: Performed By: #### B MP #### [facility] [address] [place] [address] Dr. Grace Abdul Eosinophils/100 WBC (Bld) 0.5 % Critically low 0.9-7.0 [facility] Comment on above: Performed By: #### B MP #### [facility] [address] [place] [address] Dr. Grace Abdul Erythrocyte distribution width (RBC) [Ratio] 12.4 % Normal 11.0-15.0 [facility] Comment on above: Performed By: #### B MP #### [facility] [address] [place] [address] Dr. Grace Abdul Hematocrit (Bld) [Volume fraction] 33.6 % Critically low 36.0-48.0 [facility] Comment on above: Performed By: #### B MP #### [facility] [address] [place] [address] Dr. Grace Abdul Hemoglobin (Bld) [Mass/Vol] 11.8 g/dL Critically low 12.0-16.0 [facility] Comment on above: Performed By: #### B MP #### [facility] [address] [place] [address] Dr. Grace Abdul IG # 0.04 10e3/ul Critically high 0.00-0.03 [facility] Comment on above: Performed By: #### B MP #### [facility] [address] [place] [address] Dr. Grace Abdul IG % 0.7 % Critically high 0.0-0.[address] [facility] Comment on above: Performed By: #### B MP #### [facility] [address] [place] [address] Dr. Grace Abdul LYMPH # 0.7 103/ul Critically low 1.2-3.8 [facility] Comment on above: Performed By: #### B MP #### [facility] [address] [place] [address] Dr. Grace Abdul Lymphocytes/100 WBC (Bld) 11.1 % Critically low 20.5-60.0 [facility] Comment on above: Performed By: #### B MP #### [facility] [address] [place] [address] Dr. Grace Abdul MANUAL DIFF REQ NO Normal [facility] Comment on above: Performed By: #### B MP #### [facility] [address] [place] [address] Dr. Grace Abdul MCH (RBC) [Entitic mass] 31.5 pg Normal 26.7-34.0 [facility] Comment on above: Performed By: #### B MP #### [facility] [address] [place] [address] Dr. Grace Abdul MCHC (RBC) [Mass/Vol] 35.1 g/dL Normal 29.9-35.2 [facility] Comment on above: Performed By: #### B MP #### [facility] [address] [place] [address] Dr. Grace Abdul MCV (RBC) [Entitic vol] 89.6 fL Normal 81.0-99.0 [facility] Comment on above: Performed By: #### B MP #### [facility] [address] [place] [address] Dr. Grace Abdul MONO # 0.9 103/ul Critically high 0.3-0.8 [facility] Comment on above: Performed By: #### B MP #### [facility] [address] [place] [address] Dr. Grace Abdul Monocytes/100 WBC (Bld) 14.0 % Critically high 1.7-12.0 [facility] Comment on above: Performed By: #### B MP #### [facility] [address] [place] [address] Dr. Grace Abdul NEUT # 4.5 103/ul Normal 1.4-6.5 [facility] Comment on above: Performed By: #### B MP #### [facility] [address] [place] [address] Dr. Grace Abdul Neutrophils/100 WBC (Bld) 73.5 % Normal 43.0-75.0 [facility] Comment on above: Performed By: #### B MP #### [facility] [address] [place] [address] Dr. Grace Abdul Platelet mean volume (Bld) [Entitic vol] 9.3 fL Critically low 9.5-13.5 [facility] Comment on above: Performed By: #### B MP #### [facility] [address] [place] [address] Dr. Grace Abdul PLT 292 103/ul Normal 150-450 [facility] Comment on above: Performed By: #### B MP #### [facility] [address] [address] [address] Grace Abdul RBC 3.75 106/ul Critically low 4.20-5.[address] [facility] Comment on above: Performed By: #### B MP #### [facility] [address] [address] [address] Grace Abdul WBC 6.1 103/ul Normal 4.0-11.0 [facility] Comment on above: Performed By: #### B MP #### [facility] [address] [address] [address] Grace Abdul CULTURE URINEon 11-16-2021 CULTURE URINE Culture Observations : LIGHT GROWTH OF MIXED GENITAL ALANIS. NO POTENTIAL PATHOGENS SEEN. Normal [facility] Comment on above: Performed By: #### U RCX ####[facility] [id number] [address] Grace Abdul ER URINE PROFILEon Bilirubin Ql (U) Negative Normal NEGATIVE [facility] Comment on above: Performed By: #### C VDTBH #### [facility] [address] [address] [address] Grace Abdul Clarity (U) CLEAR Normal CLEAR [facility] Comment on above: Performed By: #### C VDTBH #### [facility] [address] [address] [address] Grace Abdul Color (U) LT. YELLOW Normal YELLOW [facility] Comment on above: Performed By: #### C VDTBH #### [facility] [address] [address] [address] Grace Adbul ERUAHD A micrscopic examination will be performed if indicated. Normal [facility] Comment on above: Performed By: #### C VDTBH #### [facility] [address] [address] [address] Grace Abdul Glucose Ql (U) Negative Normal NEGATIVE [facility] Comment on above: Performed By: #### C VDTBH #### [facility] [address] [place] [address] Dr. Grace Abdul Hemoglobin Ql (U) SMALL Abnormal NEGATIVE [facility] Comment on above: Performed By: #### C VDTBH #### [facility] [address] [place] [address] Dr. Grace Abdul Ketones Ql (U) 40 mg/dl Abnormal NEGATIVE [facility] Comment on above: Performed By: #### C VDTBH #### [facility] [address] [place] [address] Dr. Grace Abdul LEUKOCYTES SMALL Abnormal NEGATIVE [facility] Comment on above: Performed By: #### C VDTBH #### [facility] [address] [place] [address] Dr. Grace Abdul Nitrite Ql (U) Negative Normal NEGATIVE [facility] Comment on above: Performed By: #### C VDTBH #### [facility] [address] [place] [address] Dr. Grace Abdul pH (U) 7.0 [pH] Normal 5-9 [facility] Comment on above: Performed By: #### C VDTBH #### [facility] [address] [place] [address] Dr. Grace Abdul SPEC GRAVITY 1.010 Normal 1.005-<=1.[address] [facility] Comment on above: Performed By: #### C VDTBH #### [facility] [address] [place] [address] Dr. Grace Abdul UA PROTEIN Negative Normal NEGATIVE/ TRACE [facility] Comment on above: Performed By: #### C VDTBH #### [facility] [address] [place] [address] Dr. Grace Abdul UR MICRO IND INDICATED Normal [facility] Comment on above: Performed By: #### C VDTBH #### [facility] [address] [place] [address] Dr. Grace Abdul Urobilinogen Qn (U) 0.2 {Ashley'U}/dL Normal 0.2 - 1. 0 [facility] Comment on above: Performed By: #### C VDTBH #### [facility] [address] [place] [address] Dr. Grace Abdul MAGNESIUMon 11-16-2021 Magnesium [Mass/Vol] 1.8 mg/dL Normal 1.8-2.4 [facility] Comment on above: Performed By: #### C VDTBH #### [facility] [address] [place] [address] Dr. Grace Abdul PROF CHEM 8 (BAS METB)on Anion gap [Moles/Vol] 12.7 mmol/L Normal [facility] Comment on above: Performed By: #### B MP #### [facility] [address] [place] [address] Dr. Grace Abdul Calcium [Mass/Vol] 8.3 mg/dL Critically low 8.5-10.1 [facility] e [facility] Comment on above: Performed By: #### B MP #### [facility] [address] [place] [address] Dr. Grace Abdul CO2 [Moles/Vol] 24.4 mmol/L Normal 21.0-32.0 [facility] Comment on above: Performed By: #### B MP #### [facility] [address] [place] [address] Dr. Grace Abdul Creatinine [Mass/Vol] 1.16 mg/dL Critically high 0.55-1.02 [facility] Comment on above: Performed By: #### B MP #### [facility] [address] [place] [address] Dr. Grace Abdul EGFR-AF VIETNAMESE 54 mL/min/1.73m2 Critically low >=60 [facility] Comment on above: Performed By: #### B MP #### [facility] [address] [place] [address] Dr. Grace Abdul EGFR-NON AF VIET[place]ESE 45 mL/min/1.73m2 Critically low >=60 [facility] Comment on above: Performed By: #### B MP #### [facility] [address] [place] [address] Dr. Grace Abdul Glucose [Mass/Vol] 116 mg/dL Critically high 74-106 [facility] Comment on above: Performed By: #### B MP #### [facility] [address] [address] [address] Grace Abdul Urea nitrogen [Mass/Vol] 20.0 mg/dL Critically high 7.0-18.0 [facility] Comment on above: Performed By: #### B MP #### [facility] [address] [address] [address] Grace Abdul Urea nitrogen/Creatinine [Mass ratio] 17.2 mg/mg Normal [facility] Comment on above: Performed By: #### B MP #### [facility] [address] [address] [address] Grace Abdul Anion gap [Moles/Vol] 10.0 mmol/L Normal [facility] Comment on above: Performed By: #### B MP #### [facility] [address] [address] [address] Grace Abdul Calcium [Mass/Vol] 8.8 mg/dL Normal 8.5-10.1 [facility] Comment on above: Performed By: #### B MP #### [facility] [address] [address] [address] Grace Abdul Chloride [Moles/Vol] 96 mmol/L Critically low 98-107 [facility] Comment on above: Performed By: #### B MP #### [facility] [address] [address] [address] Grace Abdul CO2 [Moles/Vol] 26.1 mmol/L Normal 21.0-32.0 [facility] Comment on above: Performed By: #### B MP #### [facility] [address] [address] [address] Grace Abdul Creatinine [Mass/Vol] 1.11 mg/dL Critically high 0.55-1.02 [facility] Comment on above: Performed By: #### B MP #### [facility] [address] [address] [address] Grace Abdul EGFR-AF VIET[place]ESE 57 mL/min/1.73m2 Critically low >=60 [facility] Comment on above: Performed By: #### B MP #### [facility] [address] [address] [address] Grace Abdul EGFR-NON AF VIET[place]ESE 47 mL/min/1.73m2 Critically low >=60 [facility] Comment on above: Performed By: #### B MP #### [facility] [address] [address] [address] Grace Abdul Glucose [Mass/Vol] 94 mg/dL Normal 74-106 [facility] Comment on above: Performed By: #### B MP #### [facility] [address] [address] [address] Grace Abdul Potassium [Moles/Vol] 3.1 mmol/L Critically low 3.5-5.1 [facility] Comment on above: Performed By: #### B MP #### [facility] [address] [address] [address] Grace Abdul Performed By: #### C VDTBH #### [facility] [address] [place] [address] Dr. Grace Abdul Sodium [Moles/Vol] 129 mmol/L Critically low 136-145 [facility] Comment on above: Performed By: #### B MP #### [facility] [address] [place] [address] Dr. Grace Abdul Urea nitrogen [Mass/Vol] 16.0 mg/dL Normal 7.0-18.0 [facility] Comment on above: Performed By: #### B MP #### [facility] [address] [address] [address] Grace Abdul Urea nitrogen/Creatinine [Mass ratio] 14.4 mg/mg Normal [facility] Comment on above: Performed By: #### B MP #### [facility] [address] [address] [address] Grace Abdul Anion gap [Moles/Vol] 12.6 mmol/L Normal [facility] Comment on above: Performed By: #### C VDTBH #### [facility] [address] [address] [address] Grace Abdul Calcium [Mass/Vol] 8.6 mg/dL Normal 8.5-10.1 [facility] Comment on above: Performed By: #### C VDTBH #### [facility] [address] [place] [address] Dr. Grace Abdul Chloride [Moles/Vol] 95 mmol/L Critically low 98-107 [facility] Comment on above: Performed By: #### B MP #### [facility] [address] [address] [address] Grace Abdul Performed By: #### C VDTBH #### [facility] [address] [place] [address] Dr. Grace Abdul CO2 [Moles/Vol] 22.5 mmol/L Normal 21.0-32.0 [facility] Comment on above: Performed By: #### C VDTBH #### [facility] [address] [place] [address] Dr. Grace Abdul Creatinine [Mass/Vol] 0.95 mg/dL Normal 0.55-1.02 [facility] Comment on above: Performed By: #### C VDTBH #### [facility] [address] [place] [address] Dr. Grace Abdul EGFR-AF VIET[place]ESE >60 Normal >=60 [facility] Comment on above: Performed By: #### C VDTBH #### [facility] [address] [place] [address] Dr. Grace Abdul EGFR-NON AF VIET[place]ESE 56 mL/min/1.73m2 Critically low >=60 [facility] Comment on above: Performed By: #### C VDTBH #### [facility] [address] [address] [address] Grace Abdul Glucose [Mass/Vol] 92 mg/dL Normal 74-106 [facility] Comment on above: Performed By: #### C VDTBH #### [facility] [address] [place] [address] Dr. Grace Abdul Sodium [Moles/Vol] 127 mmol/L Critically low 136-145 [facility] Comment on above: Performed By: #### C VDTBH #### [facility] [address] [place] [address] Dr. Grace Abdul Urea nitrogen [Mass/Vol] 18.0 mg/dL Normal 7.0-18.0 [facility] Comment on above: Performed By: #### C VDTBH #### [facility] [address] [place] [address] Dr. Grace Abdul Urea nitrogen/Creatinine [Mass ratio] 18.9 mg/mg Normal [facility] Comment on above: Performed By: #### C VDTBH #### [facility] [address] [place] [address] Dr. Grace Abdul URINE MICROSCOPIC ONLYon BACTERIA TRACE Abnormal NONE SEEN [facility] Comment on above: Performed By: #### C VDTBH #### [facility] [address] [place] [address] Dr. Grace Abdul Bacteria identified Cx Nom (U) INDICATED Normal [facility] Comment on above: Performed By: #### C VDTBH #### [facility] [address] [place] [address] Dr. Grace Abdul CAST NONE SEEN Normal NONE SEEN [facility] Comment on above: Performed By: #### C VDTBH #### [facility] [address] [place] [address] Dr. Grace Abdul Crystals LM Nom (Urine sed) NONE SEEN Normal NONE SEEN [facility] Comment on above: Performed By: #### C VDTBH #### [facility] [address] [place] [address] Dr. Grace Abdul Epithelial cells LM Ql (Urine sed) FEW Abnormal NONE SEEN /RARE [facility] Comment on above: Performed By: #### C VDTBH #### [facility] [address] [place] [address] Dr. Grace Abdul MUCOUS NONE SEEN Normal NONE SEEN [facility] Comment on above: Performed By: #### C VDTBH #### [facility] [address] [place] [address] Dr. Grace Abdul RBC 2-5 Abnormal 0-2 [facility] Comment on above: Performed By: #### C VDTBH #### [facility] [address] [place] [address] Dr. Grace Abdul WBC 5-10 Abnormal NONE SEEN [facility] Comment on above: Performed By: #### C VDTBH #### [facility] [address] [place] [address] Dr. Grace Abdul AMYLASEon 11-15-2021 Amylase [Catalytic activity/Vol] 94 U/L Normal 25-115 [facility] Comment on above: Performed By: #### C VDTBH #### [facility] [address] [place] [address] Dr. Grace Abdul BNPon 11-15-2021 Natriuretic peptide B (Bld) [Mass/Vol] 357.0 pg/mL Normal <=1,800.0 [facility] Comment on above: Performed By: #### C VDTBH #### [facility] [address] [place] [address] Dr. Grace Abdul CARDIAC JOVITA ADMITon 022 CK [Catalytic activity/Vol] 66 U/L Normal 26-192 [facility] Comment on above: Performed By: #### C VDTBH #### [facility] [address] [place] [address] Dr. Grace Abdul CK.MB [Mass/Vol] 2.19 ng/mL Normal <=3.60 [facility] Comment on above: Performed By: #### C VDTBH #### [facility] [address] [place] [address] Dr. Grace Abdul HSTROP 9.5 pg/mL Normal 4.0-51.3 [facility] Comment on above: Result Comment: CUT- OFF POINTS HAVE BEEN ESTABLISHED BASED ON THE FOURTH UNIVERSAL DEFINITIONS OF MYOCARDIAL INFARCTION. THE UPPER REFERENCE LIMIT (URL) OF TROPONIN, DEFINED THE 99TH PERCENTILE OF cTnI DISTRIBUTION IN A REFERENCE POPULATION, HAS BEEN CONFIRMED THE DECISION THRESHOLD FOR MT DIAGNOSIS. Performed By: #### C VDTBH #### [facility] [address] [place] [address] Dr. Grace Abdul JOHNNA 73 ng/mL Normal 9-82 [facility] Comment on above: Performed By: #### C VDTB #### [facility] [address] [place] [address] Dr. Grace Abdul CBC AUTO DIFFon 11-15-2021 BASO # 0.0 103/ul Normal 0.0-0.1 [facility] Comment on above: Performed By: #### B MP #### [facility] [address] [place] [address] Dr. Grace Abdul Basophils/100 WBC (Bld) 0.1 % Critically low 0.2-2.0 [facility] Comment on above: Performed By: #### B MP #### [facility] [address] [place] [address] Dr. Grace Abdul EO # 0.0 103/ul Normal 0.0-0.7 [facility] Comment on above: Performed By: #### B MP #### [facility] [address] [place] [address] Dr. Grace Abdul Eosinophils/100 WBC (Bld) 0.1 % Critically low 0.9-7.0 [facility] Comment on above: Performed By: #### B MP #### [facility] [address] [place] [address] Dr. Grace Abdul Erythrocyte distribution width (RBC) [Ratio] 11.9 % Normal 11.0-15.0 [facility] Comment on above: Performed By: #### B MP #### [facility] [address] [place] [address] Dr. Grace Abdul Hematocrit (Bld) [Volume fraction] 36.6 % Normal 36.0-48.0 [facility] Comment on above: Performed By: #### B MP #### [facility] [address] [place] [address] Dr. Grace Abdul Hemoglobin (Bld) [Mass/Vol] 13.2 g/dL Normal 12.0-16.0 [facility] Comment on above: Performed By: #### B MP #### [facility] [address] [place] [address] Dr. Grace Abdul IG # 0.05 10e3/ul Critically high 0.00-0.03 [facility] Comment on above: Performed By: #### B MP #### [facility] [address] [place] [address] Dr. Grace Abdul IG % 0.7 % Critically high 0.0-0.[address] [facility] Comment on above: Performed By: #### B MP #### [facility] [address] [address] [address] Grace Abdul LYMPH # 0.7 103/ul Critically low 1.2-3.8 [facility] Comment on above: Performed By: #### B MP #### [facility] [address] [place] [address] Dr. Grace Abdul Lymphocytes/100 WBC (Bld) 9.8 % Critically low 20.5-60.0 [facility] Comment on above: Performed By: #### B MP #### [facility] [address] [place] [address] Dr. Grace Abdul MANUAL DIFF REQ NO Normal [facility] Comment on above: Performed By: #### B MP #### [facility] [address] [place] [address] Dr. Grace Abdul MCH (RBC) [Entitic mass] 31.5 pg Normal 26.7-34.0 [facility] Comment on above: Performed By: #### B MP #### [facility] [address] [place] [address] Dr. Grace Abdul MCHC (RBC) [Mass/Vol] 36.1 g/dL Critically high 29.9-35.2 [facility] Comment on above: Performed By: #### B MP #### [facility] [address] [place] [address] Dr. Grace Abdul MCV (RBC) [Entitic vol] 87.4 fL Normal 81.0-99.0 [facility] Comment on above: Performed By: #### B MP #### [facility] [address] [place] [address] Dr. Grace Abdul MONO # 0.9 103/ul Critically high 0.3-0.8 [facility] Comment on above: Performed By: #### B MP #### [facility] [address] [place] [address] Dr. Grace Abdul Monocytes/100 WBC (Bld) 12.4 % Critically high 1.7-12.0 [facility] Comment on above: Performed By: #### B MP #### [facility] [address] [place] [address] Dr. Grace Abdul NEUT # 5.8 103/ul Normal 1.4-6.5 [facility] Comment on above: Performed By: #### B MP #### [facility] [address] [place] [address] Dr. Grace Abdul Neutrophils/100 WBC (Bld) 76.9 % Critically high 43.0-75.0 [facility] Comment on above: Performed By: #### B MP #### [facility] [address] [place] [address] Dr. Grace Abdul Platelet mean volume (Bld) [Entitic vol] 9.0 fL Critically low 9.5-13.5 [facility] Comment on above: Performed By: #### B MP #### [facility] [address] [place] [address] Dr. Grace Abdul PLT 361 103/ul Normal 150-450 [facility] Comment on above: Performed By: #### B MP #### [facility] [address] [place] [address] Dr. Grace Abdul RBC 4.19 106/ul Critically low 4.20-5.40 [facility] Comment on above: Performed By: #### B MP #### [facility] [address] [place] [address] Dr. Grace Abdul WBC 7.6 103/ul Normal 4.0-11.0 [facility] Comment on above: Performed By: #### B MP #### [facility] [address] [place] [address] Dr. Grace Abdul [facility]23 SARS-CoV-2 (COVID-19) RNA LUISITO+probe Ql (Unsp spec) Not detected Normal NOT DETECTED [facility] Comment on [...] for this test is supported by the Counterintelligence Agent of Health and Human Service's declaration that [...] By: #### C VDTBH #### [facility] [address] [place] [address] Dr. Grace Abdul LIPASEon 11-15-2021 Lipase [Catalytic activity/Vol] 178.0 U/L Normal 73.0-393.0 [facility] Comment on above: Performed By: #### C VDTBH #### [facility] [address] [place] [address] Dr. Grace Abdul PROF 14(COMP METB)on 022 Albumin [Mass/Vol] 4.1 g/dL Normal 3.4-5.0 [facility] Comment on above: Performed By: #### C VDTBH #### [facility] [address] [place] [address] Dr. Grace Abdul Albumin/Globulin [Mass ratio] 1.2 {ratio} Normal [facility] Comment on above: Performed By: #### C VDTBH #### [facility] [address] [place] [address] Dr. Grace Abdul ALP [Catalytic activity/Vol] 63 U/L Normal 46-116 [facility] Comment on above: Performed By: #### C VDTBH #### [facility] [address] [address] [address] Grace Abdul ALT [Catalytic activity/Vol] 29 U/L Normal 14-59 [facility] Comment on above: Performed By: #### C VDTBH #### [facility] [address] [address] [address] Grace Abdul Anion gap [Moles/Vol] 14.8 mmol/L Normal [facility] Comment on above: Performed By: #### C VDTBH #### [facility] [address] [address] [address] Grace Abdul AST [Catalytic activity/Vol] 25 U/L Normal 15-37 [facility] Comment on above: Performed By: #### C VDTBH #### [facility] [address] [address] [address] Grace Abdul Bilirubin [Mass/Vol] 0.6 mg/dL Normal 0.2-1.0 [facility] Comment on above: Performed By: #### C VDTBH #### [facility] [address] [address] [address] Grace Abdul Calcium [Mass/Vol] 9.4 mg/dL Normal 8.5-10.1 [facility] Comment on above: Performed By: #### C VDTBH #### [facility] [address] [address] [address] Grace Abdul Chloride [Moles/Vol] 83 mmol/L Critically low 98-107 [facility] Comment on above: Performed By: #### C VDTBH #### [facility] [address] [address] [address] Grace Abdul CO2 [Moles/Vol] 24.4 mmol/L Normal 21.0-32.0 [facility] Comment on above: Performed By: #### C VDTBH #### [facility] [address] [address] [address] Grace Abdul Creatinine [Mass/Vol] 1.15 mg/dL Critically high 0.55-1.02 [facility] Comment on above: Performed By: #### C VDTBH #### [facility] [address] [address] [address] Grace Abdul EGFR-AF VI[place] 55 mL/min/1.73m2 Critically low >=60 [facility] Comment on above: Performed By: #### C VDTBH #### [facility] [address] [address] [address] Grace Abdul EGFR-NON AF [place] 45 mL/min/1.73m2 Critically low >=60 [facility] Comment on above: Performed By: #### C VDTBH #### [facility] [address] [address] [address] Grace Abdul Globulin (S) [Mass/Vol] 3.4 g/dL Normal [facility] Comment on above: Performed By: #### C VDTBH #### [facility] [address] [address] [address] Grace Abdul Glucose [Mass/Vol] 147 mg/dL Critically high 74-106 [facility] Comment on above: Performed By: #### C VDTBH #### [facility] [address] [address] [address] Grace Abdul Potassium [Moles/Vol] 3.2 mmol/L Critically low 3.5-5.1 [facility] Comment on above: Performed By: #### C VDTBH #### [facility] [address] [address] [address] Grace Abdul Protein [Mass/Vol] 7.5 g/dL Normal 6.4-8.2 [facility] Comment on above: Performed By: #### C VDTBH #### [facility] [address] [address] [address] Grace Abdul Urea nitrogen/Creatinine [Mass ratio] 21.7 mg/mg Normal [facility] Comment on above: Performed By: #### C VDTBH #### [facility] [address] [address] [address] Grace Abdul PROF CHEM 8 (BAS METB)on Anion gap [Moles/Vol] 13.6 mmol/L Normal [facility] Comment on above: Performed By: #### C VDTBH #### [facility] [address] [place] [address] Dr. Grace Abdul Calcium [Mass/Vol] 8.8 mg/dL Normal 8.5-10.1 [facility] Comment on above: Performed By: #### C VDTBH #### [facility] [address] [place] [address] Dr. Grace Abdul Chloride [Moles/Vol] 88 mmol/L Critically low 98-107 [facility] Comment on above: Performed By: #### C VDTBH #### [facility] [address] [place] [address] Dr. Grace Abdul CO2 [Moles/Vol] 21.8 mmol/L Normal 21.0-32.0 [facility] Comment on above: Performed By: #### C VDTBH #### [facility] [address] [place] [address] Dr. Grace Abdul Creatinine [Mass/Vol] 1.11 mg/dL Critically high 0.55-1.02 [facility] Comment on above: Performed By: #### C VDTBH #### [facility] [address] [place] [address] Dr. Grace Abdul EGFR-AF VI[place] 57 mL/min/1.73m2 Critically low >=60 [facility] Comment on above: Performed By: #### C VDTBH #### [facility] [address] [place] [address] Dr. Grace Abdul EGFR-NON AF [place] 47 mL/min/1.73m2 Critically low >=60 [facility] Comment on above: Performed By: #### C VDTBH #### [facility] [address] [place] [address] Dr. Grace Abdul Glucose [Mass/Vol] 132 mg/dL Critically high 74-106 T [facility] Comment on above: Performed By: #### C VDTBH #### [facility] [address] [place] [address] Dr. Grace Abdul Potassium [Moles/Vol] 3.4 mmol/L Critically low 3.5-5.1 [facility] Comment on above: Performed By: #### C VDTBH #### [facility] [address] [place] [address] Dr. Grace Abdul Sodium [Moles/Vol] 120 mmol/L Critically low 136-145 Th e [facility] Comment on above: Result Comment: Test Repeated. Critical Value Verified Performed By: #### C VDTBH #### [facility] [address] [place] [address] Dr. Grace Abdul Urea nitrogen [Mass/Vol] 25.0 mg/dL Critically high 7.0-18.0 [facility] Comment on above: Performed By: #### C VDTBH #### [facility] [address] [place] [address] Dr. Grace Abdul Urea nitrogen/Creatinine [Mass ratio] 22.5 mg/mg Normal [facility] Comment on above: Performed By: #### C VDTBH #### [facility] [address] [place] [address] Dr. Grace Abdul PROTIMEon 11-15-2021 INR Coag (PPP) [Relative time] 0.94 {INR} Normal [facility] Comment on above: Performed By: #### C VDTBH #### [facility] [address] [place] [address] Dr. Grace Abdul INR GUIDELINES SEE BELOW Normal [facility] Comment on above: Result Comment: DURAN RED INR: 2.0 - 3.0 CONDITIONS NOT LISTED BELOW 2.5 - 3.5 FOR PROSTHETIC HEART VALVE REPLACEMENT 2.5 - 3.5 RECURRENT THROMBOSIS Performed By: #### C VDTBH #### [facility] [address] [place] [address] Dr. Graec Abdul PT Coag (PPP) [Time] 10.2 s Normal 9.0-11.6 [facility] Comment on above: Performed By: #### C VDTBH #### [facility] [address] [place] [address] Dr. Grace Abdul XR ABD FLAT UP_PA [...] Date: 2021-11-15 13:56 Normal [facility] BNPon 11-11-2021 Natriuretic peptide B (Bld) [Mass/Vol] 546.0 pg/mL Normal <=1,800.0 [facility] Comment on above: Performed By: #### C MP, TSH, HSTROPN, BNP ####[facility] [address] [address] Grace Abdul CBC AUTO DIFFon 11-11-2021 BASO # 0.0 103/ul Normal 0.0-0.1 [facility] Comment on above: Performed By: #### C BC #### [facility] [address] [address] [address] Grace Abdul Basophils/100 WBC (Bld) 0.3 % Normal 0.2-2.0 [facility] Comment on above: Performed By: #### C BC #### [facility] [address] [address] [address] Grace Abdul EO # 0.0 103/ul Normal 0.0-0.7 [facility] Comment on above: Performed By: #### C BC #### [facility] [address] [address] [address] Grace Abdul Eosinophils/100 WBC (Bld) 0.5 % Critically low 0.9-7.0 [facility] Comment on above: Performed By: #### C BC #### [facility] [address] [place] [address] Dr. Grace Abdul Erythrocyte distribution width (RBC) [Ratio] 12.9 % Normal 11.0-15.0 [facility] Comment on above: Performed By: #### C BC #### [facility] [address] [place] [address] Dr. Grace Abdul Hematocrit (Bld) [Volume fraction] 36.1 % Normal 36.0-48.0 [facility] Comment on above: Performed By: #### C BC #### [facility] [address] [place] [address] Dr. Grace Abdul Hemoglobin (Bld) [Mass/Vol] 12.3 g/dL Normal 12.0-16.0 [facility] Comment on above: Performed By: #### C BC #### [facility] [address] [place] [address] Dr. Grace Abdul IG # 0.01 10e3/ul Normal 0.00-0.03 [facility] Comment on above: Performed By: #### C BC #### [facility] [address] [place] [address] Dr. Grace Abdul IG % 0.3 % Normal 0.0-0.5 [facility] Comment on above: Performed By: #### C BC #### [facility] [address] [place] [address] Dr. Grace Abdul LYMPH # 0.6 103/ul Critically low 1.2-3.8 [facility] Comment on above: Performed By: #### C BC #### [facility] [address] [place] [address] Dr. Grace Abdul Lymphocytes/100 WBC (Bld) 14.8 % Critically low 20.5-60.0 [facility] Comment on above: Performed By: #### C BC #### [facility] [address] [place] [address] Dr. Grace Abdul MANUAL DIFF REQ NO Normal [facility] Comment on above: Performed By: #### C BC #### [facility] [address] [place] [address] Dr. Grace Abdul MCH (RBC) [Entitic mass] 31.5 pg Normal 26.7-34.0 [facility] Comment on above: Performed By: #### C BC #### [facility] [address] [place] [address] Dr. Grace Abdul MCHC (RBC) [Mass/Vol] 34.1 g/dL Normal 29.9-35.2 [facility] Comment on above: Performed By: #### C BC #### [facility] [address] [place] [address] Dr. Grace Abdul MCV (RBC) [Entitic vol] 92.6 fL Normal 81.0-99.0 [facility] Comment on above: Performed By: #### C BC #### [facility] [address] [place] [address] Dr. Grace Abdul MONO # 0.5 103/ul Normal 0.3-0.8 [facility] Comment on above: Performed By: #### C BC #### [facility] [address] [place] [address] Dr. Grace Abudl Monocytes/100 WBC (Bld) 13.5 % Critically high 1.7-12.0 [facility] Comment on above: Performed By: #### C BC #### [facility] [address] [place] [address] Dr. Grace Abdul NEUT # 2.7 103/ul Normal 1.4-6.5 [facility] Comment on above: Performed By: #### C BC #### [facility] [address] [place] [address] Dr. Grace Abdul Neutrophils/100 WBC (Bld) 70.6 % Normal 43.0-75.0 [facility] Comment on above: Performed By: #### C BC #### [facility] [address] [place] [address] Dr. Grace Abdul Platelet mean volume (Bld) [Entitic vol] 9.2 fL Critically low 9.5-13.5 [facility] Comment on above: Performed By: #### C BC #### [facility] [address] [place] [address] Dr. Grace Abdul PLT 279 103/ul Normal 150-450 [facility] Comment on above: Performed By: #### C BC #### [facility] [address] [place] [address] Dr. Grace Abdul RBC 3.90 106/ul Critically low 4.20-5.[address] [facility] Comment on above: Performed By: #### C BC #### [facility] [address] [place] [address] Dr. Grace Abdul WBC 3.9 103/ul Critically low 4.0-11.0 [facility] Comment on above: Performed By: #### C BC #### [facility] [address] [place] [address] Dr. Grace Abdul PROF 14(COMP METB)on 022 Albumin [Mass/Vol] 3.3 g/dL Critically low 3.4-5.0 [facility] Comment on above: Performed By: #### C MP, TSH, HSTROPN, BNP #### [facility] [address] [place] [address] Dr. Grace Abdul Albumin/Globulin [Mass ratio] 1.2 {ratio} [facility] Comment on above: Performed By: #### C MP, TSH, HSTROPN, BNP #### [facility] [address] [place] [address] Dr. Grace Abdul ALP [Catalytic activity/Vol] 60 U/L Normal 46-116 [facility] Comment on above: Performed By: #### C MP, TSH, HSTROPN, BNP #### [facility] [address] [place] [address] Dr. Grace Abdul ALT [Catalytic activity/Vol] 26 U/L Normal 14-59 [facility] Comment on above: Performed By: #### C MP, TSH, HSTROPN, BNP #### [facility] [address] [place] [address] Dr. Grace Abdul Anion gap [Moles/Vol] 14.8 mmol/L Normal [facility] Comment on above: Performed By: #### C MP, TSH, HSTROPN, BNP #### [facility] [address] [place] [address] Dr. Grace Abdul AST [Catalytic activity/Vol] 20 U/L Normal 15-37 [facility] Comment on above: Performed By: #### C MP, TSH, HSTROPN, BNP #### [facility] [address] [place] [address] Dr. Grace Abdul Bilirubin [Mass/Vol] 0.3 mg/dL Normal 0.2-1.0 [facility] Comment on above: Performed By: #### C MP, TSH, HSTROPN, BNP #### [facility] [address] [place] [address] Dr. Grace Abdul Calcium [Mass/Vol] 8.2 mg/dL Critically low 8.5-10.1 Th e [facility] Comment on above: Performed By: #### C MP, TSH, HSTROPN, BNP #### [facility] [address] [place] [address] Dr. Grace Abdul Chloride [Moles/Vol] 100 mmol/L Normal 98-107 [facility] Comment on above: Performed By: #### C MP, TSH, HSTROPN, BNP #### [facility] [address] [place] [address] Dr. Grace Abdul CO2 [Moles/Vol] 23.8 mmol/L Normal 21.0-32.0 [facility] Comment on above: Performed By: #### C MP, TSH, HSTROPN, BNP #### [facility] [address] [place] [address] Dr. Grace Abdul Creatinine [Mass/Vol] 1.27 mg/dL Critically high 0.55-1.02 [facility] Comment on above: Performed By: #### C MP, TSH, HSTROPN, BNP #### [facility] [address] [place] [address] Dr. Grace Abdul EGFR-AF [place] 49 mL/min/1.73m2 Critically low >=60 [facility] Comment on above: Performed By: #### C MP, TSH, HSTROPN, BNP #### [facility] [address] [place] [address] Dr. Grace Abdul EGFR-NON AF [place] 40 mL/min/1.73m2 Critically low >=60 [facility] Comment on above: Performed By: #### C MP, TSH, HSTROPN, BNP #### [facility] [address] [place] [address] Dr. Grace Abdul Globulin (S) [Mass/Vol] 2.7 g/dL Normal [facility] Comment on above: Performed By: #### C MP, TSH, HSTROPN, BNP #### [facility] [address] [place] [address] Dr. Grace Abdul Glucose [Mass/Vol] 116 mg/dL Critically high 74-106 T [facility] Comment on above: Performed By: #### C MP, TSH, HSTROPN, BNP #### [facility] [address] [place] [address] Dr. Grace Abdul Potassium [Moles/Vol] 3.6 mmol/L Normal 3.5-5.1 [facility] Comment on above: Performed By: #### C MP, TSH, HSTROPN, BNP #### [facility] [address] [place] [address] Dr. Grace Abdul Protein [Mass/Vol] 6.0 g/dL Critically low 6.4-8.2 [facility] Comment on above: Performed By: #### C MP, TSH, HSTROPN, BNP #### [facility] [address] [place] [address] Dr. Grace Abdul Sodium [Moles/Vol] 135 mmol/L Critically low 136-145 Th [facility] Comment on above: Performed By: #### C MP, TSH, HSTROPN, BNP #### [facility] [address] [place] [address] Dr. Grace Abdul Urea nitrogen [Mass/Vol] 25.0 mg/dL Critically high 7.0-18.0 [facility] Comment on above: Performed By: #### C MP, TSH, HSTROPN, BNP #### [facility] [address] [place] [address] Dr. Grace Abdul Urea nitrogen/Creatinine [Mass ratio] 19.7 mg/mg Normal [facility] [facility] Comment on above: Performed By: #### C MP, TSH, HSTROPN, BNP #### [facility] [address] [place] [address] Dr. Grace Abdul PROTIMEon 11-11-2021 INR Coag (PPP) [Relative time] 0.95 {INR} Normal [facility] Comment on above: Performed By: #### B MP #### [facility] [address] [place] [address] Dr. Grace Abdul INR GUIDELINES SEE BELOW Normal [facility] Comment on above: Result Comment: DURAN RED INR: 2.0 - 3.0 CONDITIONS NOT LISTED BELOW 2.5 - 3.5 FOR PROSTHETIC HEART VALVE REPLACEMENT 2.5 - 3.5 RECURRENT THROMBOSIS Performed By: #### B MP #### [facility] [address] [place] [address] Dr. Grace Abdul PT Coag (PPP) [Time] 10.3 s Normal 9.0-11.6 [facility] Comment on above: Performed By: #### B MP #### [facility] [address] [place] [address] Dr. Grace Abdul PTTon 11-11-2021 aPTT Coag (Bld) [Time] 21.3 s Critically low 22.3-36.2 [facility] Comment on above: Performed By: #### B MP #### [facility] [address] [place] [address] Dr. Grace Abdul TROPONIN, HIGH SENSITIVITYon 11-11-2021 HSTROP 6.5 pg/mL Normal 4.0-51.3 [facility] Comment on above: Result Comment: CUT- OFF POINTS HAVE BEEN ESTABLISHED BASED ON THE FOURTH UNIVERSAL DEFINITIONS OF MYOCARDIAL INFARCTION. THE UPPER REFERENCE LIMIT (URL) OF TROPONIN, DEFINED THE 99TH PERCENTILE OF cTnI DISTRIBUTION IN A REFERENCE POPULATION, HAS BEEN CONFIRMED THE DECISION THRESHOLD FOR MT DIAGNOSIS. Performed By: #### C MP, TSH, HSTROPN, BNP #### [facility] [address] [place], [place] [address] Dr. Grace Abdul TSHon 11-11-2021 TSH 2.140 uIU/mL Normal 0.358-3.740 [facility] Comment on above: Performed By: #### C MP, TSH, HSTROPN, BNP ####[facility] [address] [place], [place] [address]PnDr. Grace Abdul XR CHEST 1 Von 11-11-2021 [...] Date: 2021-11-11 13:34 Normal [facility] CARDIAC JOVITA ADMITon 022 CK [Catalytic activity/Vol] 89 U/L Normal 26-192 [facility] Comment on above: Performed By: #### C VDTBH #### [facility] [address] [address] [address] Grace Abdul CK.MB [Mass/Vol] 1.92 ng/mL Normal <=3.60 [facility] Comment on above: Performed By: #### C VDTB #### [facility] [address] [address] [address] Grace Abdul HSTROP 5.7 pg/mL Normal 4.0-51.3 [facility] Comment on above: Result Comment: CUT- OFF POINTS HAVE BEEN ESTABLISHED BASED ON THE FOURTH UNIVERSAL DEFINITIONS OF MYOCARDIAL INFARCTION. THE UPPER REFERENCE LIMIT (URL) OF TROPONIN, DEFINED THE 99TH PERCENTILE OF cTnI DISTRIBUTION IN A REFERENCE POPULATION, HAS BEEN CONFIRMED THE DECISION THRESHOLD FOR MT DIAGNOSIS. Performed By: #### C VDTBH #### [facility] [address] [address] [address] Grace Abdul JOHNNA 86 ng/mL Critically high 9-82 [facility] Comment on above: Performed By: #### C VDTBH #### [facility] [address] [place] [address] Dr. Grace Abdul CBC AUTO DIFFon 09-13-2021 BASO # 0.0 103/ul Normal 0.0-0.1 [facility] Comment on above: Performed By: #### C VDTBH #### [facility] [address] [place] [address] Dr. Grace Abdul Basophils/100 WBC (Bld) 0.5 % Normal 0.2-2.0 [facility] Comment on above: Performed By: #### C VDTBH #### [facility] [address] [place] [address] Dr. Grace Abdul EO # 0.0 103/ul Normal 0.0-0.7 [facility] Comment on above: Performed By: #### C VDTBH #### [facility] [address] [place] [address] Dr. Grace Abdul Eosinophils/100 WBC (Bld) 0.7 % Critically low 0.9-7.0 [facility] Comment on above: Performed By: #### C VDTBH #### [facility] [address] [place] [address] Dr. Grace Abdul Erythrocyte distribution width (RBC) [Ratio] 13.2 % Normal 11.0-15.0 [facility] Comment on above: Performed By: #### C VDTBH #### [facility] [address] [place] [address] Dr. Grace Abdul Hematocrit (Bld) [Volume fraction] 34.8 % Critically low 36.0-48.0 [facility] Comment on above: Performed By: #### C VDTBH #### [facility] [address] [place] [address] Dr. Grace Abdul Hemoglobin (Bld) [Mass/Vol] 11.9 g/dL Critically low 12.0-16.0 [facility] Comment on above: Performed By: #### C VDTBH #### [facility] [address] [address] [address] Grace Abdul IG # 0.01 10e3/ul Normal 0.00-0.03 [facility] Comment on above: Performed By: #### C VDTBH #### [facility] [address] [place] [address] Dr. Grace Abdul IG % 0.2 % Normal 0.0-0.5 [facility] Comment on above: Performed By: #### C VDTBH #### [facility] [address] [place] [address] Dr. Grace Abdul LYMPH # 0.6 103/ul Critically low 1.2-3.8 [facility] Comment on above: Performed By: #### C VDTBH #### [facility] [address] [place] [address] Dr. Grace Abdul Lymphocytes/100 WBC (Bld) 14.2 % Critically low 20.5-60.0 [facility] Comment on above: Performed By: #### C VDTBH #### [facility] [address] [place] [address] Dr. Grace Abdul MANUAL DIFF REQ NO Normal [facility] Comment on above: Performed By: #### C VDTBH #### [facility] [address] [place] [address] Dr. Grace Abdul MCH (RBC) [Entitic mass] 31.5 pg Normal 26.7-34.0 [facility] Comment on above: Performed By: #### C VDTBH #### [facility] [address] [place] [address] Dr. Grace Abdul MCHC (RBC) [Mass/Vol] 34.2 g/dL Normal 29.9-35.2 [facility] Comment on above: Performed By: #### C VDTBH #### [facility] [address] [place] [address] Dr. Grace Abdul MCV (RBC) [Entitic vol] 92.1 fL Normal 81.0-99.0 [facility] Comment on above: Performed By: #### C VDTBH #### [facility] [address] [address] [address] Grace Abdul MONO # 0.7 103/ul Normal 0.3-0.8 [facility] Comment on above: Performed By: #### C VDTBH #### [facility] [address] [place] [address] Dr. Grace Abdul Monocytes/100 WBC (Bld) 15.6 % Critically high 1.7-12.0 [facility] Comment on above: Performed By: #### C VDTBH #### [facility] [address] [place] [address] Dr. Grace Abdul NEUT # 3.0 103/ul Normal 1.4-6.5 [facility] Comment on above: Performed By: #### C VDTBH #### [facility] [address] [place] [address] Dr. Grace Abdul Neutrophils/100 WBC (Bld) 68.8 % Normal 43.0-75.0 [facility] Comment on above: Performed By: #### C VDTBH #### [facility] [address] [place] [address] Dr. Grace Abdul Platelet mean volume (Bld) [Entitic vol] 9.5 fL Normal 9.5-13.5 [facility] Comment on above: Performed By: #### C VDTBH #### [facility] [address] [place] [address] Dr. Grace Abdul PLT 303 103/ul Normal 150-450 [facility] Comment on above: Performed By: #### C VDTBH #### [facility] [address] [place] [address] Dr. Grace Abdul RBC 3.78 106/ul Critically low 4.20-5.40 [facility] Comment on above: Performed By: #### C VDTBH #### [facility] [address] [place] [address] Dr. Grace Abdul WBC 4.4 103/ul Normal 4.0-11.0 [facility] Comment on above: Performed By: #### C VDTBH #### [facility] [address] [address] [address] HEAD WO CONon [...] Date: 2021-09-13 13:24 Normal [facility]22 SARS-CoV-2 (COVID-19) RNA LUISITO+probe Ql (Unsp spec) Not detected Normal NOT DETECTED [facility] Comment on [...] for this test is supported by the Counterintelligence Agent of Health and Human Service's declaration that [...] By: #### C VDTBH #### [facility] [address] [place] [address] Dr. Grace Abdul ER URINE PROFILEon 2 Bilirubin Ql (U) Negative Normal NEGATIVE [facility] Comment on above: Performed By: #### B MP #### [facility] [address] [place] [address] Dr. Grace Abdul Clarity (U) CLEAR Normal CLEAR [facility] Comment on above: Performed By: #### B MP #### [facility] [address] [place] [address] Dr. Grace Abdul Color (U) LT. YELLOW Normal YELLOW [facility] Comment on above: Performed By: #### B MP #### [facility] [address] [place] [address] Dr. Grace HIGGINS A micrscopic examination will be performed if indicated. Normal [facility] Comment on above: Performed By: #### B MP #### [facility] [address] [place] [address] Dr. Grace Abdul Glucose Ql (U) Negative Normal NEGATIVE [facility] Comment on above: Performed By: #### B MP #### [facility] [address] [place] [address] Dr. Grace Abdul Hemoglobin Ql (U) Negative Normal NEGATIVE [facility] Comment on above: Performed By: #### B MP #### [facility] [address] [place] [address] Dr. Grace Abdul Ketones Ql (U) TRACE Abnormal NEGATIVE [facility] Comment on above: Performed By: #### B MP #### [facility] [address] [place] [address] Dr. Grace Abdul LEUKOCYTES TRACE Abnormal NEGATIVE [facility] Comment on above: Performed By: #### B MP #### [facility] [address] [place] [address] Dr. Grace Abdul Nitrite Ql (U) Negative Normal NEGATIVE [facility] Comment on above: Performed By: #### B MP #### [facility] [address] [place] [address] Dr. Grace Abdul pH (U) 8.0 [pH] Normal 5-9 [facility] Comment on above: Performed By: #### B MP #### [facility] [address] [place] [address] Dr. Grace Abdul SPEC GRAVITY 1.015 Normal 1.005-<=1.[address] [facility] Comment on above: Performed By: #### B MP #### [facility] [address] [place] [address] Dr. Grace Abdul UA PROTEIN Negative Normal NEGATIVE/ TRACE [facility] Comment on above: Performed By: #### B MP #### [facility] [address] [place] [address] Dr. Grace Abdul UR MICRO IND INDICATED Normal [facility] Comment on above: Performed By: #### B MP #### [facility] [address] [place] [address] Dr. Grace Abdul Urobilinogen Qn (U) 0.2 {Ashley'U}/dL Normal 0.2 - 1. 0 [facility] Comment on above: Performed By: #### B MP #### [facility] [address] [place] [address] Dr. Grace Abdul PROF 14(COMP METB)on 022 Albumin [Mass/Vol] 3.8 g/dL Normal 3.4-5.0 [facility] Comment on above: Performed By: #### C VDTBH #### [facility] [address] [place] [address] Dr. Grace Abdul Albumin/Globulin [Mass ratio] 1.4 {ratio} Normal [facility] Comment on above: Performed By: #### C VDTBH #### [facility] [address] [place] [address] Dr. Grace Abdul ALP [Catalytic activity/Vol] 53 U/L Normal 46-116 [facility] Comment on above: Performed By: #### C VDTBH #### [facility] [address] [place] [address] Dr. Grace Abdul ALT [Catalytic activity/Vol] 20 U/L Normal 14-59 [facility] Comment on above: Performed By: #### C VDTBH #### [facility] [address] [address] [address] Grace Abdul Anion gap [Moles/Vol] 12.0 mmol/L Normal [facility] Comment on above: Performed By: #### C VDTBH #### [facility] [address] [address] [address] Grace Abdul AST [Catalytic activity/Vol] 18 U/L Normal 15-37 [facility] Comment on above: Performed By: #### C VDTBH #### [facility] [address] [address] [address] Grace Abdul Bilirubin [Mass/Vol] 0.4 mg/dL Normal 0.2-1.0 [facility] Comment on above: Performed By: #### C VDTBH #### [facility] [address] [address] [address] Grace Abdul Calcium [Mass/Vol] 9.5 mg/dL Normal 8.5-10.1 [facility] Comment on above: Performed By: #### C VDTBH #### [facility] [address] [address] [address] Grace Abdul Chloride [Moles/Vol] 99 mmol/L Normal 98-107 [facility] Comment on above: Performed By: #### C VDTBH #### [facility] [address] [address] [address] Grace Abdul CO2 [Moles/Vol] 28.1 mmol/L Normal 21.0-32.0 [facility] Comment on above: Performed By: #### C VDTBH #### [facility] [address] [address] [address] Grace Abdul Creatinine [Mass/Vol] 1.25 mg/dL Critically high 0.55-1.02 [facility] Comment on above: Performed By: #### C VDTBH #### [facility] [address] [address] [address] Grace Abdul EGFR-AF VIET[place]ESE 50 mL/min/1.73m2 Critically low >=60 [facility] Comment on above: Performed By: #### C VDTBH #### [facility] [address] [address] [address] Grace Abdul EGFR-NON AF VIETNAMESE 41 mL/min/1.73m2 Critically low >=60 [facility] Comment on above: Performed By: #### C VDTBH #### [facility] [address] [address] [address] Grace Abdul Globulin (S) [Mass/Vol] 2.7 g/dL Normal [facility] Comment on above: Performed By: #### C VDTBH #### [facility] [address] [address] [address] Grace Abdul Glucose [Mass/Vol] 131 mg/dL Critically high 74-106 T [facility] Comment on above: Performed By: #### C VDTBH #### [facility] [address] [address] [address] Grace Abdul Potassium [Moles/Vol] 4.1 mmol/L Normal 3.5-5.1 [facility] Comment on above: Performed By: #### C VDTBH #### [facility] [address] [address] [address] Grace Abdul Protein [Mass/Vol] 6.5 g/dL Normal 6.4-8.2 [facility] Comment on above: Performed By: #### C VDTBH #### [facility] [address] [address] [address] Grace Abdul Sodium [Moles/Vol] 135 mmol/L Critically low 136-145 Th [facility] [place] [facility] Comment on above: Performed By: #### C VDTBH #### [facility] [address] [address] [address] Grace Abdul Urea nitrogen [Mass/Vol] 33.0 mg/dL Critically high 7.0-18.0 [facility] Comment on above: Performed By: #### C VDTBH #### [facility] [address] [address] [address] Grace Abdul Urea nitrogen/Creatinine [Mass ratio] 26.4 mg/mg Normal [facility] Comment on above: Performed By: #### C VDTBH #### [facility] [address] [place] [address] Dr. Grace Abdul URINE MICROSCOPIC ONLYon BACTERIA NONE SEEN Normal NONE SEEN [facility] Comment on above: Performed By: #### C BC #### [facility] [address] [place] [address] Dr. Grace Abdul Bacteria identified Cx Nom (U) NOT INDICATED Normal [facility] Comment on above: Performed By: #### C BC #### [facility] [address] [place] [address] Dr. Grace Abdul CAST NONE SEEN Normal NONE SEEN [facility] Comment on above: Performed By: #### C BC #### [facility] [address] [place] [address] Dr. Grace Abdul Crystals LM Nom (Urine sed) NONE SEEN Normal NONE SEEN [facility] Comment on above: Performed By: #### C BC #### [facility] [address] [place] [address] Dr. Grace Abdul Epithelial cells LM Ql (Urine sed) FEW Abnormal NONE SEEN /RARE [facility] Comment on above: Performed By: #### C BC #### [facility] [address] [place] [address] Dr. Grace Abdul MUCOUS NONE SEEN Normal NONE SEEN [facility] Comment on above: Performed By: #### C BC #### [facility] [address] [place] [address] Dr. Grace Abdul RBC 0-2 Normal 0-2 [facility] Comment on above: Performed By: #### C BC #### [facility] [address] [place] [address] Dr. Grace Abdul WBC 0-2 Abnormal NONE SEEN [facility] Comment on above: Performed By: #### C BC #### [facility] [address] [place] [address] Dr. Grace Abdul XR CHEST 1 Von [...] by: KRANTHI CONNORS Date: 2021-09-13 13:19 Normal [facility] CERV SP W/OBLS/FLEX/EXT 6 OR >on 12-12-2020 CERV SP W/OBLS/FLEX/EXT 6 OR > STUDY: CERV SP W/OBLS/FLEX/EXT 6 OR >; 12/12/2020 9:40 am INDICATION: NECK PAIN. COMPARISON: None. ACCESSION NUMBER(S): [id number] ORDERING CLINICIAN: Aiden Younger TECHNIQUE: AP, lateral, [...] findings. Dense left carotid artery calcifications. Normal [facility] Vital Signs Date Time Vital Sign Value Performing Clinician Aimee pollock 12-06-2023 11:32-0400 Body height 147.3 cm Armando Morales DO Work Phone: [facility] 12-06-2023 11:32-0400 Body mass index (BMI) [Ratio] 34.28 kg/m2 Armando Morales DO Work Phone: [facility] 12-06-2023 11:32-0400 Body weight 74.39 kg Armando Morales DO Work Phone: [facility] 12-06-2023 11:32-0400 Diastolic blood pressure 82 mm[Hg] Armando Morales DO Work Phone: [facility] 12-06-2023 11:32-0400 Systolic blood pressure 142 mm[Hg] Armando Morales DO Work Phone: [facility] 09-21-2022 12:51-0400 Diastolic blood pressure 60 mm[Hg] Carolyn Vanegas MD Work Phone: [facility] 09-21-2022 12:51-0400 Heart rate 67 /min Carolyn Vanegas MD Work Phone: [facility] 09-21-2022 12:51-0400 Systolic blood pressure 153 mm[Hg] Carolyn Vanegas MD Work Phone: [facility] 05-14-2022 14:24-0400 Diastolic blood pressure 87 mm[Hg] Marty Dozier DO Work Phone: [facility] 05-14-2022 14:24-0400 Heart rate 72 /min Marty Dozier DO Work Phone: [facility] 05-14-2022 14:24-0400 Systolic blood pressure 158 mm[Hg] Marty Dozier DO Work Phone: [facility] 05-14-2022 14:22-0400 Body height 152.4 cm Marty Dozier DO Work Phone: [facility] 05-14-2022 14:22-0400 Body weight 76.39 kg Marty Dozier DO Work Phone: [facility] 05-14-2022 14:22-0400 SaO2% (BldA) [Mass fraction] 99 % Marty Galavizis DO Work Phone: [facility] Encounters Encounter Date Encounter Type Care Provider Facility Start: 06-18-2024 End: 06-18-2024 ambulatory Lyn Quiñones MD Facility: [facility] Start: 05-28-2024 End: 05-28-2024 ambulatory Lyn Quiñones MD Facility: [facility] Start: 04-30-2024 End: 04-30-2024 ambulatory Lyn Quiñones MD Facility: [facility] Start: 02-06-2024 End: 02-06-2024 ambulatory Lyn Quiñones MD Facility: [facility] Start: 01-16-2024 End: 01-16-2024 ambulatory Lyn Quiñones MD Facility:[facility] Start: 12-06-2023 End: 12-06-2023 Patient encounter procedure Armando Morales DO Work Phone: [facility] Comment on above: Encounter for gyneco logical examination without abnormal finding; Encounter for Papanicolaou smear of vagina; Breast cancer screening by mammogram Start: 12-06-2023 End: 12-06-2023 Patient encounter status Armando Morales DO Work Phone: [facility] Start: 12-06-2023 End: 12-06-2023 ambulatory ARMANDO MOARLES Not Available Start: 09-26-2023 End: 09-26-2023 ambulatory Lyn Quiñones MD Facility:[facility]ue Start: 09-12-2023 End: 09-12-2023 ambulatory Lyn Quiñones MD Facility: [facility] Start: 08-18-2023 End: 08-18-2023 ambulatory Galina Rogers Facility:[facility] Start: 08-08-2023 End: 08-08-2023 ambulatory COLETTE MATOS Not Available Start: 09-21-2022 End: 09-21-2022 ambulatory GALINA ROGERS Facility:[facility] Start: 09-21-2022 End: 09-21-2022 Patient encounter [...] Start: 05-14-2022 End: 05-14-2022 ambulatory MARTY DOZIER Facility:[facility] Start: 05-14-2022 End: 05-14-2022 Patient encounter [...] 12/10/2025 11:30 AM EDT Office Visit [facility] [address] [place] [id number] Armando Morales, DO [address] [facility] [address] [place] [address] [facility] Start: 10-23-2023 Influenza vaccination Influenza Vacc ine (#1) [facility] Start: 10-22-2022 Influenza vaccination INFLUENZA (#1) [facility] Start: 04-11-2022 COVID-19 VACCINE (6 - Moderna series) COVID-19 VACCINE (6 - Moderna series) [facility] Start: 02-21-2022 ADVANCE DIRECTIVE DISCUSSION ADVANCE DIRECTIVE DISCUSSION [facility] Start: 02-21-2022 DEPRESSION ASSESSMENT DEPRESSION ASS ESSMENT [facility] Start: 11-12-2017 Pneumococcal Vaccine : 65+ Years (2 of 2 - PPSV23 or PCV20) Pneumococcal Vaccine: 65+ Years (2 of 2 - PPSV23 or PCV20) [facility] Start: 11-12-2017 PNEUMOCOCCAL: 65+ (2 - PPSV23 if available, else PCV20) PNEUMOCOCCAL: 65+ (2 - PPSV23 if available, else PCV20) [facility] Start: 11-12-2017 PNEUMOCOCCAL: 65+ (2 - PPSV23 or PCV20) PNEUMOCOCCAL: 65+ (2 - PPSV23 or PCV20) [facility] Start: 07-22-2017 SHINGRIX VACCINE (2 of 3) SHINGRIX VACCINE (2 of 3) [facility] Start: 04-30-2004 BONE DENSITY BONE DENSITY [facility] Start: 04-30-1984 DIABETES SCREEN DIABETES SCREEN [facility] Start: 04-30-1958 Urine microalbumin profile DTAP,TDAP,TD (1 - Tdap) [facility] IGP,rfxAptima HPV all,16/18,45 IGP,rfxAptima HPV all,16/18,45 Pathology and Cytology Routine Encounter for Papanicolaou smear of vagina Ordered: 12/06/2023 [facility] Work Phone: Comment on above: Ordered: 12/06/2023 Immunizations Immunization Date Immunization Notes Care Provider Armando schwartz 12-09-2021 Moderna Bivalent Gama ster Vaccination Armando Morales DO Work Phone: [facility] 12-02-2021 Influenza, injectabl e, Madin Carmina Canine Kidney, preservative free, quadrivalent Marty Dozier DO Work Phone: [facility] 12-02-2021 influenza virus vacc ine, unspecified formulation Armando Morales DO Work Phone: [facility] 11-28-2020 influenza virus vacc ine, unspecified formulation Marty Dozier DO Work Phone: [facility] 11-29-2019 Seasonal trivalent influenza vaccine, adjuvanted, preservative free Marty Dozier DO Work Phone: [facility] 05-27-2017 zoster vaccine, live Marty Dozier DO Work Phone: [facility] 11-12-2016 pneumococcal conjuga te vaccine, 13 valent Marty Dozier DO Work Phone: [facility] Payers Date Payer Category Payer Private Health Insurance [id number] 2004 Medicare [id number] 2004 Unknown 1959 Medicare [id number] 1959 Self-pay 1959 Unknown [id number] 1939 Unknown [id number] 2.16.84 0.1.510985.3.579.2.593 1939 Unknown [id number] 2.16.84 0.1.364106.3.579.2.593 1939 Unknown [id number] 2.16.84 0.1.906294.3.579.2.593 1939 Unknown [id number] 2.16.84 0.1.590089.3.579.2.593 1939 Unknown [id number] 2.16.84 0.1.492945.3.579.2.593 1939 Unknown [id number] 2.16.84 0.1.806240.3.579.2.593 1939 Unknown [id number] 2.16.84 0.1.627370.3.579.2.593 1939 Unknown [id number] 2.16.84 0.1.754108.3.579.2.593 1939 Unknown [id number] 2.16.84 0.1.080815.3.579.2.593 1939 Unknown [id number] 2.16.84 0.1.723898.3.579.2.593 1939 Unknown [id number] 2.16.84 0.1.340410.3.579.2.593 1939 Unknown [id number] 2.16.84 0.1.199052.3.579.2.593 1939 Unknown [id number] 2.16.84 0.1.905654.3.579.2.593 1939 Unknown [id number] 2.16.84 0.1.354777.3.579.2.593 1939 Unknown [id number] 2.16.84 0.1.037292.3.579.2.593 1939 Unknown [id number] 2.16.84 0.1.396524.3.579.2.593 1939 Unknown [id number] 2.16.84 0.1.356623.3.579.2.593 1939 Unknown [id number] 2.16.84 0.1.983951.3.579.2.593 1939 Unknown [id number] 2.16.84 0.1.203743.3.579.2.593 1939 Unknown [id number] 2.16.84 0.1.246981.3.579.2.593 1939 Unknown [id number] 2.16.84 0.1.217862.3.579.2.593 1939 Unknown [id number] 2.16.84 0.1.819666.3.579.2.593 1939 Unknown [id number] 2.16.84 0.1.672141.3.579.2.593 1939 Unknown [id number] 2.16.84 0.1.870245.3.579.2.593 1939 Unknown [id number] 2.16.84 0.1.789327.3.579.2.593 1939 Unknown [id number] 2.16.84 0.1.720959.3.579.2.1259 1939 Unknown [id number] 2.16.84 0.1.214107.3.579.2.1259 1939 Unknown [id number] 2.16.84 0.1.737621.3.579.2.1259 1939 Unknown [id number] 2.16. 840.1.309573.3.579.2.196 1939 Unknown [id number] 2.16. 840.1.180358.3.579.2.196 1939 Unknown [id number] 2.16. 840.1.497242.3.579.2.196 1939 Unknown [id number] 2.16. 840.1.898668.3.579.2.196 1939 Unknown [id number] 2.16. 840.1.481473.3.579.2.196 1939 Unknown [id number] 2.16. 840.1.872630.3.579.2.196 1939 Unknown [id number] 2.16. 840.1.908115.3.579.2.196 Social History Date Type Detail Facility Start: 05-14-2022 End: 08-02-2022 Tobacco smoking status NHIS Never smoked tobacco [facility] Start: 05-14-2022 End: 08-02-2022 Tobacco use and exposure Smokeless tobacco non-user [facility] Start: 05-14-2022 End: 12-06-2023 Alcohol intake Lifetime non-drinker (finding) [facility] Start: 1940 Sex Assigned At Not on file C [facility] Start: 09-21-2022 End: 12-06-2023 History of Social function [facility] Start: 09-21-2022 End: 12-06-2023 Tobacco use panel [facility] Adult Depression Scr eening Assessment 2 [facility] How often to you hav e a [...] Obstetrics and Gynecology Alexa Delgado 1940 12/06/23 [id number] Yearly Wellness Exam Chief Complaint Patient presents with Gynecologic Exam Medicare yearly. LMP: SUNIL BSO 1972 HRT: None Last pap 12-02-21 neg. Last mammogram 12-05-23 [facility] ordered by PCP. Denies breast [...] Oil) 1000 MG capsule as directed Orally Zndecxsfvdf-Zbulawaataj-LCL (Triple Flex) 500-400-125 MG tablet 1 tablet with meals Orally twice daily for 30 days HYDROcodone-acetaminophen ([place]) 5-325 MG tablet 1 tablet as needed [...] excision of lesion on leg ( benign) [place] CAPSULOTOMY POSTERIOR CAPSULAR RELEASE KNEE 05/15/2013 Yttrium aluminum garnet (YAG) capsulotomies [place] KNEE SCOPE,CLEAN/DRAIN 10/1998 Dr. De Leon [place] LAMNOTMY INCL W/DCMPRSN NRV ROOT 1 INTRSPC CERVC 12/20/2006 L4-5 Hemilaminectomy / Discectomy - Dr. Arshad SALPINGOOPHORECTOMY Left 1981 SKIN SURGERY 12/13/2008 excision neoplasm LT leg TONSILLECTOMY 1957 TOTAL ABDOMINAL HYSTERECTOMY 1973 SUNIL RSO TOTAL KNEE ARTHROPLASTY Right 09/22/2017 Dr. de leon Past Medical History: Diagnosis Date Angina pectoris (CMS/HCC) Angina pectoris ([facility]) 11/2019 hx of hospitalization Melchor's palsy 1 Breast nodule Cataract 2012 COVID-19 10/2021 hx of hospitalization History of medical problems 1982 MMK LSO HTN (hypertension) ([facility]) Hx of completed stroke hx of stroke at [id number]/ TIA 1985 Kidney disease remission Kidney disease hx of hospitalization Lumbar disc herniation 2007 L4 L5 Miscarriage x3 Pelvic fracture ([facility]) 2018 hx of hospitalization x4 Status post laser cataract surgery of left eye 2014 Stroke ([facility]) 1973 at childbirth TIA (transient ischemic [...] costovertebral angle tenderness, no obvious scoliosis/kyphosis. 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 documented in this encounter [facility] 09-21-2022 Note HNO ID: [id number] Author: Carolyn Vanegas MD Service: ? Author [...] record or letter via US mail. SUBJECTIVE lAexa Delgado is a 82 year old female [...] Health Percentile 1 (more content not included)... [facility] 09-21-2022 Instructions Carolyn Vanegas MD - 09/21/2022 [...] at this time. documented in this encounter [facility] 09-21-2022 History of Present illness Narrative SPINE [...] 4 - Moderate documented in this encounter [facility] 08-26-2022 Note HNO ID: [id number] Author: Kassandra Alves PA-C Service: ? Author Type: Physician Mechanical Engineering Draftsperson Type: Progress Notes Filed: 08/26/2022 11:52 AM [...] yes 2006 [facility] Address: [address] [place] [address] CMT: PT Injections Tylenol Hydrocodone Studies (Reports [...] reviewed during the appt Kassandra Alves PA-C [facility] 08-26-2022 History of Present illness Narrative Per Triage: Alexa Delgado is a 82 year old female that requests evaluation of spine. Per review, they have symptoms of lower back pain. Numbness/tingling right leg. Difficulty walking. Weakness Request: 1st available Referring provider: Galina Rogers MD Patient out of state: no 2nd opinion: no Prior spine surgery: yes 2006 [facility] Address: [address] [id number] CMT: PT Injections Tylenol Hydrocodone Studies (Reports [...] Health Provider or Pain Management Provider at [facility]? No If answer is YES [...] the MRI/CT/myelogram was completed: [facility] Address: [address] [place] [address] MRI/CT/myelogram viewable in Epic: No If not, please provide [phone] to fax in imaging reports for review. [...] was completed PT Injection [facility] Address: [address] [place] [address] Have you tried any other kinds of [...] completed: 2006 [facility] Address: [address] [place] [address] Additional Comments documented in this encounter [facility] 08-19-2022 Note HNO ID: [id number] Author: Micheal Bowman Service: ? Author Type: ? Type: Progress Notes Filed: 08/26/2022 11:52 AM Note Text: Patient name: Alexa Delgado Are you being referred by a [place] for Spine Health Provider or Pain Management Provider at [facility]? No If answer is YES [...] the MRI/CT/myelogram was completed: [facility] Address: [address] [place] [address] MRI/CT/myelogram viewable in Epic: No If not, please provide [phone] to fax in imaging reports for review. [...] was completed PT Injection [facility] Address: [address] [id number] Have you tried any other kinds of [...] surgery was completed: 2006 [facility] Address: [address] [place] [address] Additional Comments [facility] 07-16-2022 Note PROCEDURE: XR HIP RT 2 [...] [facility] 05-14-2022 Note HNO ID: [id number] Author: Marty Dozier, DO Service: ? Author Type: Physician Type: Progress Notes Filed: 05/15/2022 10:02 PM Note Text: [facility] [place] [facility] [...] Ratio: R>L low back Current Treatment: Medications [place] 5-325 mg BID - helps Diclofenac 75 [...] but still has pain -01/28/22 Noemi Sequeira MUSICAL INSTRUMENT MAKER: BL Lumbar erector spinae TPI (0.125% Marcaine, [...] ongoing as of 04/17/21 -03/08/21 Noemi Sequeira MUSICAL INSTRUMENT MAKER: Left rhomboid TPI (0.125% Marcaine, 40 mg Kenalog) -02/03/21 LESI - moderate relief for 4 days Prior spine surgery: -2006 L4-5 Discectomy Previously treated by: -[facility], previously Dr. [...] today. She has an evaluation at the [facility] tomorrow at the Spine Center. RECOMMENDATIONS: We will see the patient back in the office after she undergoes evaluation there to discuss her treatment plan thereafter. We will see the patient back in the office in approximately four weeks' time or sooner if needed. PMH: Lumbar scoliosis Depression on Negrita (more content not included)... [facility] 05-14-2022 History of Present illness Narrative Images from the original note were not included. [facility] [place] [facility] Medical [...] Ratio: R>L low back Current Treatment: Medications [place] 5-325 mg BID - helps Diclofenac 75 [...] but still has pain -01/28/22 Noemi Sequeira MUSICAL INSTRUMENT MAKER: BL Lumbar erector spinae TPI (0.125% Marcaine, [...] ongoing as of 04/17/21 -03/08/21 Noemi Sequeira MUSICAL INSTRUMENT MAKER: Left rhomboid TPI (0.125% Marcaine, 40 mg Kenalog) -02/03/21 LESI - moderate relief for 4 days Prior spine surgery: -2006 L4-5 Discectomy Previously treated by: -[facility], previously Dr. [...] today. She has an evaluation at the [facility] tomorrow at the Spine Center. RECOMMENDATIONS: We [...] 04/04/22 CT abd/pelvis with IV contrast, [facility], report: Abdominal wall: Old healed left pelvis fractures. Degenerative changes and scoliosis of the lumbar spine. IMPRESSION: No acute abdominal pathology. No acute inflammatory process. No obstructing urinary tract stone. No evidence for bowel obstruction. 11/15/21 XR abd, [facility], report: No acute osseous abnormality. There is moderate dextrocurvature of the lumbar spine. 05/08/2021 XR right hip/pelvis, [facility], report: Rotatory dextro scoliosis of [...] TIME: 3:15 PM documented in this encounter [facility] 05-13-2022 Note CONSULTATION CONSULTATION DATE: 05/13/2022 TO: [...] mg at h.s., diclofenac 75 mg b.i.d., [place] 5 mg b.i.d. EXAM: Notable for the [...] today. She has an evaluation at the [facility] tomorrow at the Spine Center. RECOMMENDATIONS: We will see the patient back in the office after she undergoes evaluation there to discuss her treatment plan thereafter. We will see the patient back in the office in approximately four weeks' time or sooner if needed. [facility] 04-06-2022 Note CONSULTATION CONSULTATION DATE: [...] to kidney dysfunction also. The patient takes [place], however, is very controlled and limits it to the point of detriment. Education was done. The patient was instructed to take the [place] to a b.i.d. to t.i.d. basis. The [...] b.i.d. basis. The patient may increase the [place] to 5/325 t.i.d. We will schedule the [...] CC: Galina Rogers M.D. [facility] 03-11-2022 Note CONSULTATION CONSULTATION DATE: [...] gave improvement for 24 hours. Medications include [place] 5/325 b.i.d., diclofenac 75 mg b.i.d., citalopram [...] back pain. PLAN: We will refill her [place] 5/325 b.i.d. We will prescribe her Buderer cream with gabapentin, ketorolac and prilocaine/lidocaine to be placed over her right knee. We will trial Requip 0.25 mg q.h.s. We will see the patient in the clinic in three months' time unless otherwise indicated. Patient agrees with the plan. [facility] 01-28-2022 Note CONSULTATION CONSULTATION DATE: [...] daily which decreases her pain. Medications include [place] 5/325 b.i.d., Flexeril 5 mg b.i.d., diclofenac [...] does consent to. We will refill the [place] 5/325 b.i.d. We will pre-authorize for a right genicular nerve block under fluoroscopy. Patient will follow up in the clinic thereafter. [facility] 01-28-2022 Note CONSULTATION PROCEDURE DATE: [...] up in the office. [facility] 12-31-2021 Note CONSULTATION CONSULTATION DATE: [...] Current medications include diclofenac 75 mg b.i.d., [place] 5/325 b.i.d., citalopram, Flexeril and multivitamin regimen. The patient does state that she breaks her [place] in half and the most she takes [...] like to move forward. [facility] 09-30-2021 Note CONSULTATION CONSULTATION DATE: 09/30/2021 This is a very [id number] female accompanied by her returning to the [...] Current medications include diclofenac 50 mg b.i.d., [place] 5/325 b. i.d. and Tylenol. She does [...] at 25 mg q.h.s. Refill for her [place] 5/325 b.i.d. will be sent as well. The patient is to continue with her vitamin regimen which she is currently compliant with, as well as heat application and pool exercises. The patient will be followed up in the office in three months' time unless otherwise indicated. The patient agrees with the plan of care. [facility] Evaluation note Diagnosis Chronic bilateral low back pain with right-sided sciatica- Primary Back pain, lumbosacral Lumbago Chronic sacroiliac joint pain Disorders of sacrum Lumbar spondylosis Lumbosacral spondylosis without myelopathy Scoliosis of lumbar spine, unspecified scoliosis type [facility] Spinal stenosis, lumbar region with neurogenic claudication- Primary Spondylolisthesis, lumbar region Other idiopathic scoliosis, lumbar region [facility] Diagnosis Obesity, Class I, BMI 30-34.9- Primary Obesity, unspecified Spinal stenosis, lumbar region with neurogenic claudication [facility] Diagnosis Encounter for gynecological examination without [...] By Contac t Referred To Contact [facility] [place] Diagnoses Spinal stenosis, lumbar region with neurogenic claudication Procedures CONSULT TO [facility] ([facility] PAIN) OFFICE/OUTPATIENT NEW HIGH MDM 60-74 MINUTES Carolyn Vanegas MD [address] [place] [address] Referral ID Status Reason Start Date Expiration Date Visits Requested Visits Authorized [id number] Pending Review PCP Requested Referral 09/21/2022 09/21/2023 1 1 Additional Source Comments INFORMATION SOURCE (unrecogn ized section and content) DATE CREATED AUTHOR 09/13/2017 [facility] DATE CREATED AUTHOR AUTHOR'S ORGANIZ ATION 12/13/2020 [facility] DATE CREATED AUTHOR AUTHOR'S ORGANIZ ATION 07/30/2022 [facility] DATE CREATED AUTHOR AUTHOR'S ORGANIZ ATION 09/22/2022 [facility] DATE CREATED AUTHOR AUTHOR'S ORGANIZ ATION 10/26/2023 [facility] DATE CREATED AUTHOR AUTHOR'S ORGANIZ ATION 12/08/[address] [facility] EPIC DATE CREATED AUTHOR AUTHOR'S ORGANIZ ATION 06/25/2024 [facility] Source Comments (unrecognize d section and content) In the event this informatio n is protected by the Federal Confidentiality of Alcohol and Drug Abuse Patient Records regulations: The Federal rules restrict any use of the information to criminally investigate or prosecute any alcohol or drug abuse patient.[facility] the event this information is protected by the Federal Confidentiality of Alcohol and Drug Abuse Patient Records regulations: The Federal rules restrict any use of the information to criminally investigate or prosecute any alcohol or drug abuse patient.[facility] the event this information is protected by the Federal Confidentiality of Alcohol and Drug Abuse Patient Records regulations: The Federal rules restrict any use of the information to criminally investigate or prosecute any alcohol or drug abuse patient.[facility] Reason for Visit (unrecogniz ed section and content) Reason Comments New Patient Evaluation Low Back Pain Reason Comments New Patient Reason Comments Gynecologic Exam Medicare yearly.LMP: SUNIL BSO 1973HRT: NoneLast pap 12-02-21 neg.Last mammogram 12-05-23 [facility] ordered by PCP.Denies breast or urinary concerns. bowel concern Some rectal bleeding with bowel movements. Denies difficulty having a bowel movement. Care Teams (unrecognized sec tion and content) Polisher Balance Screwhead Relationship Specialty Start Date End Date Galina Rogers MD [address] [place] [address] PCP - General Family Medicine 05/14/22 Colette De Leon Jr., DO [address] [facility] [address] [place] [address] Referring Orthopedics 05/03/22 Porsha Garcia [address] [address] Pain Management 05/14/22 Haley Colette Shante Matos, DO [address] [place] [address] Orthopedics 05/14/22 Polisher Balance Screwhead Relationship Specialty Start Date End Date Galina Rogers MD [address] [place] [facility] [address] PCP - General Family Medicine 05/14/22 Colette De Leon Jr., DO [address] [place] [address] Referring Orthopedics 05/03/22 Porsha Garcia [address] [place] [address] [place] [address], [place] [phone] Pain Management 05/14/22 Colette De Leon Jr., DO [address] [place] [address] Orthopedics 05/14/22 Galina Rogers MD [address] [place] [facility] [address] Referring Family Medicine 08/11/22 Polisher Balance Screwhead Relationship Specialty Start Date End Date Galina Rogers MD [address] [place] [facility] [address] PCP - General Family Medicine 05/14/22 Colette De Leon Jr., DO [address] [place] [address] Referring Orthopedics 05/03/22 Shermijacque, Claudioendranath [address] [place] [address] [place] [address], [place] [address] Pain Management 05/14/22 Colette De Leon Jr., [address] [place] [address] Orthopedics 05/14/22 Galina Rogers MD [address] [place] [phone] Referring Family Medicine 08/11/22 Polisher Balance Screwhead Relationship Specialty Start Date End Date Galina Rogers MD [address] [place] [phone] PCP - General Family Medicine 08/02/22 FOR [...] BE BASED ON THE PRIMARY CLINICAL RECORDS. [facility] [employer] [facility]. provides no warranty or guarantee of the accuracy or completeness of information in this document.
[2024-09-21 11:59] LABS: Alanine Aminotransferase 30 U/L (14-59); Albumin Globulin Ratio 1.0; Albumin Level 3.6 g/dL (3.4-5.0); Alkaline Phosphatase 78 U/L (46-116); Anion Gap 11.0; Aspartate Amino Transferase 29 U/L (15-37); Blood Urea Nitrogen 29.0 mg/dL (7.0-18.0); Calcium 9.7 mg/dL (8.5-10.1); Carbon Dioxide 30.9 mmol/L (21.0-32.0); Chloride 97 mmol/L (98-107); Estimated GFR (African America >60 (>=60 mL/min/1.73m^2); Estimated GFR (Non-African Ame 55 (>=60 mL/min/1.73m^2); Globulin 3.7 g/dL; Glucose 87 mg/dL (74-106); Potassium 3.9 mmol/L (3.5-5.1); Sodium 135 mmol/L (136-145); Total Protein 7.3 g/dL (6.4-8.2)
[2024-09-21 12:02] LABS: Hematocrit 35.4 % (36.0-48.0); Hemoglobin 11.5 g/dL (12.0-16.0); Immature Granulocytes Abs Auto 0.02 10^3/uL (0.00-0.03); Immature Granulocytes Pct Auto 0.5 % (0.0-0.5); Lymphocytes Absolute Auto 0.2 10^3/uL (1.2-3.8); Mean Corpuscular HGB Conc 32.5 g/dL (29.9-35.2); Mean Corpuscular Hemoglobin 31.4 pg (26.7-34.0); Mean Corpuscular Volume 96.7 fL (81.0-99.0); Platelet Count 218 10^3/uL (150-450); Red Blood Count 3.66 10^6/uL (4.20-5.40); White Blood Count 3.9 10^3/uL (4.0-11.0)
[2024-09-21 12:52] LABS: Glucose Urine UA NEGATIVE (NEGATIVE)
[2024-09-21 14:11] LABS: Cast Seen? NONE SEEN #/LPF (NONE SEEN); Crystals Seen? None Seen #/HPF (None Seen)
== END 2024-09-21 11:13 | disposition home or self-care (01) ==
PROVIDERS: PCP Family Medicine; Visit Provider Family Medicine
DX: R89.9 Unspecified abnormal finding in specimens from other organs, systems and tissues (principal); R41.0 Disorientation, unspecified; R33.9 Retention of urine, unspecified
CPT/HCPCS: 36415; 80053; 81001; 85025; 87086

== ENCOUNTER 2024-09-24 10:56 | Outpatient (OUT) | payer MEDICARE, SELFPAY ==
--- OUTSIDE RECORDS SUMMARY | 2024-09-24 10:58 | XMS_ITS | Clinical Summary ---
Author Organization [facility] Address [address] [place] [address] Care Team Providers Care Swimming Pool Maintenance Name Role Phone Luis Rogers MD Primary Care Provider [phone] Allergies Active Allergy Reactions Criticality Noted Date [...] daily for 30 days Active HYDROcodone-acet aminophen ([place]) 5-325 MG tablet 1 tablet as needed [...] EDT Office Visit LYNN WELLER [address] [facility] [address] [place] [address] Armando Thayer DO [address] [facility] [address] [place] [address] Health Maintenance Due Date Last Done Comments Pneumococcal Vaccine: 65+ Ye ars (2 of 2 - PPSV23) 11/12/2017 11/12/2016 Influenza Vaccine (#1) 2024 2, 11/28/2020, 11/29/2019 [place] [address] [facility] Care Teams Swimming Pool Maintenance Relationship Specialty Start Date End Date Luis Rogers MD PCP - General Family Medicine 08/02/22
--- OUTSIDE RECORDS SUMMARY | 2024-09-24 10:58 | XMS_ITS | Encounter Summary ---
Author Organization [facility] Address [address] [place] [address] Care Team Providers Care Staff Weapons Officer Name Role Phone Luis Rogers MD Primary Care Provider [phone] Encounter Details Date Type Department Care Team (Late Contact Info) Description 01/09/2024 Orders Only LYNN WELLER [address] [place] [phone] Armando Thayer, DO [address] [place] [address] Social History Tobacco Use Types Packs/Day Years [...] OBGYN [address] [place] [address] Armando Thayer, [address] [place] [address] documented as of this encounter Procedures Procedure [...] on filedocumented in this encounter Care Teams Staff Weapons Officer Relationship Specialty Start Date End Date Luis Rogers MD PCP - General Family Medicine 08/02/22 documented as of this encounter
--- OUTSIDE RECORDS SUMMARY | 2024-09-24 10:58 | XMS_ITS | Encounter Summary ---
Author Organization [facility] Address [address] [place] [address] Care Team Providers Care Cyber Ops Planner Name Role Phone Haley Matos DO, George Cajetan Unavailable Luis Rogers MD Primary Care Provider [phone] Porsha Garcia Unavailable Haley Matos DO, George Cajetan Unavailable Luis Rogers MD Unavailable [phone] Source Comments In the event this information is protected by the Federal Confidentiality of Alcohol and Drug AbusePatient Records regulations: The Federal rules restrict any use of the information to criminally investigate or prosecute any alcohol or drug abuse patient.[facility] Encounter Details Date Type Department Care Team (Late st Contact Info) Description 09/23/2022 Patient Msg Neurology [address] [place] [address] Provider, Ccf Referral Social History Tobacco [...] is lower risk 4 09/21/2022 Data from: https://www.neighborhoodatlas.medicine.[facility].edu/. Last address used for calculation [address] 09/21/2022 Comments Unknown Sex and Gender Information Value Date Recorded Sex Assigned at Not on file Legal Sex Female 11:59 AM EST Gender Identity Not on file Sexual Orientation Not on file documented as of this encounter Plan of Treatment Not on file documented as of this encounter Visit Diagnoses Not on filedocumented in this encounter Care Teams Cyber Ops Planner Relationship Specialty Start Date End Date Luis Rogers MD [address] [place] [address] PCP - General Family Medicine 05/14/22 Arsh De Leon Jr., DO [address] [place] [address] [address] [place] [address] Referring Orthopedics 05/03/22 Porsha Garcia [address] [phone] Pain Management 05/14/22 Arsh De Leon Jr., DO [address] [facility] [address] [place] [address] Orthopedics 05/14/22 Luis Rogers MD [address] [place] [address] Referring Family Medicine 08/11/22 documented as of this encounter
--- OUTSIDE RECORDS SUMMARY | 2024-09-24 10:58 | XMS_ITS | Clinical Summary ---
Author Organization [facility] Address [address] [place] [address] Phone Care Team Providers Care Applied Behavior Specialist Name Role Phone Unavailable Primary Care Provider [...]
--- OUTSIDE RECORDS SUMMARY | 2024-09-24 10:58 | XMS_ITS | Clinical Summary ---
Author Organization [facility] Address [address] [place], [place] [id number] Care Team Providers Care General Administrator Name Role Phone Haley Matos DO, George Cajetan Unavailable Luis Rogers MD Primary Care Provider [phone] LakkailamipathArmen manciaranneto Unavailable Haley Matos DO, George Cajetan Unavailable Luis Rogers MD Unavailable [phone] Allergies Active Allergy Reactions Criticality Noted [...] is lower risk 4 09/21/2022 Data from: https://www.neighborhoodatlas.medicine.[facility]/. Last address used for calculation [address] 09/21/2022 Comments Unknown Sex [...] (2 of 2 - PPSV23) 11/12/2017 11/12/2016 Advance Directive Discussion 02/22/2024 Influenza Vaccine (#1) 2024 2, 11/28/2020, 11/29/2019 Insurance [facility] MEDICARE RAILROAD MEDICARE Care Teams General Administrator Relationship Specialty Start Date End Date Luis Rogers MD [address] [facility] [place] [address] PCP - General Family Medicine 05/14/22 Arsh De Leon Jr., DO [address] [facility] [address] [place] [address] Referring Orthopedics 05/03/22 Porsha Garcia [address] [phone] Pain Management 05/14/22 Arsh De Leon Jr., DO [address] [facility] [address] [place] [address] Orthopedics 05/14/22 Luis Rogers MD [address] [place] [address] Referring Family Medicine 08/11/22
--- NOTE | 2024-09-24 10:59 | US_ITS ---
The [address] [address] Patient Name: KARINA CORMIER MRN: [id number] date: 1940 Sex: F Assigned Patient Location: US Current Patient Location: US Accession/Order Number: [id number] Exam Date: 09/24/2024 12:48 Report Date: 09/24/2024 12:49 At the request of: GALINA PALMER MD Procedure: US renal bladder BILATERAL RENAL AND BLADDER ULTRASOUND CLINICAL HISTORY: Bladder Retention COMPARISON: None FINDINGS: Estimation of renal size is approximately 9.5 cm on the right and 9.3 cm on the left. No contour deforming mass, shadowing stone or hydronephrosis. Cystic changes involving the kidneys. The urinary bladder is partially distended with a volume of 271 ml. No shadowing stone or focal lesion. Significant post void residual 67 mL. US/US renal bladder IMPRESSION: SIGNIFICANT POST VOID RESIDUAL OF 67 ML. FINDINGS ARE CONSISTENT WITH THE HISTORY. NO HYDRONEPHROSIS. Impression dictated by: Raz Norris Jr., D.O. 09/24/2024 12:49 PM Dictation Location: [place] [address] Electronically authenticated by: [id number] Y Date: 09/24/2024 12:49
== END 2024-09-24 10:57 | disposition home or self-care (01) ==
LOC: US 10:56
PROVIDERS: PCP Family Medicine; Visit Provider Family Medicine
DX: R33.9 Retention of urine, unspecified (principal)
CPT/HCPCS: 76770

== ENCOUNTER 2024-10-01 11:02 | Day surgery (SDC) | payer MEDICARE, SELFPAY ==
--- OUTSIDE RECORDS SUMMARY | 2024-09-20 06:58 | XMS_ITS ---
Author Organization [facility] [place] Address [address] [place] [address] Care Team Providers Care Care Transition Mgr Name Role Phone JeremiasgavinoBang Primary Care Provider REASON FOR VISIT urine Encounters Encounter Location Date Provider Diagnosis [facility] [address] [place] [address] 09/20/2024 Bang Sue Abnormal laboratory test R89.9 ; Confusion R41.0 and Bladder retention R33.9 Assessments Encounter Date Diagnosis (ICD Code) Assessment Notes Treatment Notes Treatment Clinical Notes Section Notes 09/20/2024 Abnormal laboratory test (ICD-10 - R89.9) 09/20/2024 Confusion (ICD-10 - R41.0) 09/20/2024 Bladder retention (ICD-10 - R33.9) Plan Of Treatment Pending Test Test Name Order Date UA (URINALYSIS, COMPLETE) 09/20/2024 COMPREHENSIVE METABOLIC PROFILE WITH GFR 09/20/2024 CBC W/AUTO DIFF 09/20/2024 CULTURE URINE 09/20/2024 US KIDNEYS BLADDER 09/20/2024 Progress Notes * Alexa CORMIER LDOB: 0 (84 yo F)Acc No.[id number]:09/20/2024 Patient: Jadyn BENEDICTAlexa :1940 A ge:84 Y S ex:Female Address:[address] [place] [id number] Subjective: * Chief Complaints: * U rine * Medical History: * Surgical History: * Hospitalization/Major Diagno stic Procedure: * Medications: Objective: * Vitals: * Physical Examination: Assessment: * Assessment: 1. A bnormal laboratory test - R89.9 (Primary) 2 . C onfusion - R41.0 ? 3 . B ladder retention - R33.9 Plan: * Treatment: 2. C onfusion L AB: UA (URINALYSIS, COMPLETE) L AB: COMPREHENSIVE METABOLIC PROFILE WITH GFR L AB: CBC W/AUTO DIFF L AB: CULTURE URINE 3. B ladder retention L AB: UA (URINALYSIS, COMPLETE) L AB: COMPREHENSIVE METABOLIC PROFILE WITH GFR L AB: CBC W/AUTO DIFF L AB: CULTURE URINE I maging: US KIDNEYS BLADDER * Procedure Codes: * true * Date: Generated for Camden arvizu/Neetu/Endy on: 0 10/01/2024 11:05 AM EDT
--- OUTSIDE RECORDS SUMMARY | 2024-09-22 20:05 | XMS_ITS | Continuity of Care Document ---
Author Organization [facility] Address [address] [place] [address] Phone Care Team Providers Care Maintenance Team Member Name Role Phone Luis Rogers MD Attending Provider [phone] Care Teams Patient Care Team Team Status: Inactive Member Role Status Dates Luis Rogers MD Attending Provider Active Sta rt: September 22, 2024 End: September 22, 2024 Social History Smoking Status Unknown if ever smoked Observation Status Observation Response Date of Response Legal Sex Female (finding) Sex Assigned At Female April Procedures Procedure Date Performed Status Urine Culture September 21, 2024 active Advance Directives Advance Directive Response Recorded Date/ Time Advance Directives No October 10:43am Insurance Providers Guarantor Alexa Delgado Address [address] [facility] [address] Contact Info. Home Phone: Payer Policy Id Subscriber's Name Subscriber Id Effectiv e Date Expiration Date Medicare [id number] Alexa Delgado [id number] Medicare [employer] [id number] Alexa Delgado [id number] [facility] Health Claims [id number] Alexa Delgado [id number] Encounters Encounter Location(s) Arrival/Admit Date Discharge/Depart Date Provider(s) Departed Clinical -Lab [facility] September 22, 2024 2:31am September 22, 2024 2:32am Isreal Bassett MD Plan of Treatment Future Tests Future scheduled test information is unavailable Pending Tests Test Name Ordered Date Scheduled Date Urine Culture September 21, 2024 12:15pm Future Visits Future appointment information is unavailable Referrals to Other Providers Referral information is unavailable Future Procedures Procedure Name Ordered Date Scheduled Date Urine Culture September 22, 2024 2:33am September 212024 12:15pm Future Medications Future medication information is unavailable Patient Instructions Patient instructions are unavailable
--- OUTSIDE RECORDS SUMMARY | 2024-09-23 15:32 | XMS_ITS ---
Author Organization [facility] [place] Address [address] [place] [address] Care Team Providers Care Instrumentation Controls Engineer Name Role Phone Bang Rogers Primary Care Provider [phone] REASON FOR VISIT urine cx Encounters Encounter Location Date Provider Diagnosis [facility] [address] [place] [address] 09/23/2024 Bang Rogers Plan Of Treatment No Information Progress Notes * Alexa CORMIER LDOB: 0 (84 yo F)Acc No.[id number]:09/23/2024 Patient: Jadyn Alexa MCMULLEN :1940 A ge:84 Y S ex:Female Address:[address] [place] [phone] * true * Date: Generated for Ivethi luh/Faoscarg/eTransmitting on: 0 10/01/2024 11:04 AM EDT
--- OUTSIDE RECORDS SUMMARY | 2024-10-01 11:05 | XMS_ITS | Encounter Summary ---
Author Organization [facility] Address [address] [place] [address] Care Team Providers Care Distillery Worker Name Role Phone Haley Matos DO, George Cajetan Unavailable Luis Rogers MD Primary Care Provider [phone] Porsha Garcia Unavailable Haley Matos DO, George Cajetan Unavailable Luis Rogers MD Unavailable [phone] Source Comments In the event this information is protected by the Federal Confidentiality of Alcohol and Drug AbusePatient Records regulations: The Federal rules restrict any use of the information to criminally investigate or prosecute any alcohol or drug abuse patient.[facility] Encounter Details Date Type Department Care Team (Late st Contact Info) Description 09/23/2022 Patient Msg Neurology [address] [place] [address] Provider, Ccf Referral Social History Tobacco [...] is lower risk 4 09/21/2022 Data from: https://www.neighborhoodatlas.medicine.[facility].edu/. Last [address] used for calculation [address] 09/21/2022 Comments Unknown Sex and Gender Information Value Date Recorded Sex Assigned at Not on file Legal Sex Female 11:59 AM EST Gender Identity Not on file Sexual Orientation Not on file documented as of this encounter Plan of Treatment Not on file documented as of this encounter Visit Diagnoses Not on filedocumented in this encounter Care Teams Distillery Worker Relationship Specialty Start Date End Date Luis Rogers MD [address] [place] [address] PCP - General Family Medicine 05/14/22 Arsh De Leon Jr., DO [address] [place] [address] [address] [place] [address] Referring Orthopedics 05/03/22 Porsha Garcia [address] [phone] Pain Management 05/14/22 Arsh De Leon Jr., DO [address] [facility] [address] [place] [address] Orthopedics 05/14/22 Luis Rogers MD [address] [place] [address] Referring Family Medicine 08/11/22 documented as of this encounter
--- OUTSIDE RECORDS SUMMARY | 2024-10-01 11:05 | XMS_ITS | Encounter Summary ---
Author Organization [facility] Address [address] [place] [address] Care Team Providers Care Sow Farm Barn Technician Name Role Phone Luis Rogers MD Primary Care Provider [phone] Encounter Details Date Type Department Care Team (Late Contact Info) Description 01/09/2024 Orders Only LYNN WELLER [address] [place] [phone] Armando Thayer, DO [address] [place] [address] Social History Tobacco Use Types Packs/Day Years [...] OBGYN [address] [place] [address] Armando Thayer, [address] [place] [address] documented as of this encounter Procedures Procedure Name Priority Date/Time Associated Diagnosis Comments MAMMOGRAM, BILATERAL, SCREEN:* Routine 01/09/2024 3:00 PM EST documented in this encounter Results * MAMMOGRAM, BILATERAL, SCREEN:* (01/09/2024 3:00 PM EST) Anatomical Region Laterality Modality Radiographic Micehlle ging Armando Thayer DO IMG XR PROCEDURES Final Resu lt documented in this encounter Visit Diagnoses Not on filedocumented in this encounter Care Teams Sow Farm Barn Technician Relationship Specialty Start Date End Date Luis Rogers MD PCP - General Family Medicine 08/02/22 documented as of this encounter
--- OUTSIDE RECORDS SUMMARY | 2024-10-01 11:05 | XMS_ITS | Clinical Summary ---
Author Organization [facility] Address [address] [place] [address] Care Team Providers Care Hide Handler Name Role Phone Luis Rogers MD Primary Care Provider [phone] Allergies Active Allergy Reactions Criticality Noted Date [...] daily for 30 days Active HYDROcodone-acet aminophen ([place]) 5-325 MG tablet 1 tablet as needed [...] EDT Office Visit LYNN WELLER [address] [facility] [address] [place] [address] Armando Thayer DO [address] [facility] [address] [place] [address] Health Maintenance Due Date Last Done Comments Pneumococcal Vaccine: 65+ Ye ars (2 of 2 - PPSV23) 11/12/2017 11/12/2016 Influenza Vaccine (#1) 2024 2, 11/28/2020, 11/29/2019 [place] [address] [facility] Care Teams Hide Handler Relationship Specialty Start Date End Date Luis Rogers MD PCP - General Family Medicine 08/02/22
--- OUTSIDE RECORDS SUMMARY | 2024-10-01 11:05 | XMS_ITS | Clinical Summary ---
Author Organization [facility] Address [address] [place], [place] [id number] Care Team Providers Care Electrocardiogram Technician Name Role Phone Haley Matos DO, George Cajetan Unavailable Luis Rogers MD Primary Care Provider [phone] LakkailamipathArmen manciaranento Unavailable Haley Matos DO, George Cajetan Unavailable Luis Rogers MD Unavailable [phone] Allergies Active Allergy Reactions Criticality Noted [...] is lower risk 4 09/21/2022 Data from: https://www.neighborhoodatlas.medicine.[facility]/. Last address used for calculation [address] 09/21/2022 Comments Unknown Sex [...] Vaccine (#1) 2024 2, 11/28/2020, 11/29/2019 Insurance [facility] MEDICARE RAILROAD MEDICARE Care Teams Electrocardiogram Technician Relationship Specialty Start Date End Date Luis Rogers MD [address] [facility] [place] [address] PCP - General Family Medicine 05/14/22 Arsh De Leon Jr., DO [address] [facility] [address] [place] [address] Referring Orthopedics 05/03/22 Porsha Garcia [address] [phone] Pain Management 05/14/22 Asrh De Leon Jr., DO [address] [facility] [address] [place] [address] Orthopedics 05/14/22 Luis Rogers MD [address] [place] [address] Referring Family Medicine 08/11/22
--- OUTSIDE RECORDS SUMMARY | 2024-10-01 11:05 | XMS_ITS | Clinical Summary ---
Author Organization [facility] Address [address] [place] [address] Phone Care Team Providers Care Hide Trimmer Name Role Phone Unavailable Primary Care Provider [...]
--- OUTSIDE RECORDS SUMMARY | 2024-10-01 11:06 | XMS_ITS | Patient Health Record ---
Author Organization [facility] in [place] Address [address] [place] [address] Care Team Providers Care Asw Specialist Name Role Phone Bang Rogers Primary Care Provider Judi Wiseman Unavailable [phone] Allergies Allergen (clinical drug ingredient) Drug/Non Drug Allergy documented on EMR Reaction Allergy Type Onset Date Status Darvon Unknown Drug Allergy Active fluconazole Diflucan Unknown Drug Allergy Activ e pregabalin Lyrica Unknown Drug Allergy Active codeine Codeine Unknown Drug Allergy Active Penicillin Unknown Drug Allergy Active quinine Quinine Unknown Drug Allergy Active Results Component Value Reference Range Notes PTT Reviewed date:10/24/2023 11:51:00 AM Interpretation: Performing Lab: Notes/Report: [facility] , Partial Thromboplastin Time 22.7 22.3-36.2 sec Performing Lab: see note ML - [facility] LB CBC AUTO DIFF Reviewed date:10/24/2023 11:51:00 AM Interpretation: Performing Lab: Notes/Report: [facility] , White Blood Count 6.1 4.0-11.0 [...] 10 3/uL Performing Lab: see note - [facility] LB Prothrombin Time INR Reviewed date:10/24/2023 11:51:00 AM Interpretation: Performing Lab: Notes/Report: [facility] , Prothrombin Time 9.8 9.0-11.6 sec INR <0.93 DESIRED INR: 2.0-3.0 CONDITIONS NOT LISTED BELOW 2.5-3.5 FOR PROSTHETIC HEART VALVE REPLACEMENT 2.5-3.5 RECURRENT THROMBOSIS Performing Lab: see note - [facility] LB Manual Differential Reviewed date:03/23/2024 09:20:24 AM Interpretation: Performing Lab: Notes/Report: [facility] , Segmented Neutrophils % Manual [...] 1 0 3/uL Performing Lab: see note - [facility] LB XR KNEE RT 3V Reviewed date:07/23/2024 08:48:43 PM Interpretation: Performing Lab: Notes/Report: Source Facility: [facility]-[address] [place] [address] XRay Report Signed Patient: ALEXA DELGADO MR#: [id number] : 1940 Acct:[id number] Age/Sex: 84 / F ADM Date: 07/23/24 Loc: ER Attending Dr: Ordering Physician: Pauline Ferrell Date of Service: 07/23/24 Procedure(s): XR knee RT 3V Accession Number(s): [id number] cc: Galina Rogers M.D.; Pauline Ferrell [place] [address] Patient Name: ALEXA DELGADO MRN: [facility]:[id number] date: 1940 Sex: F Assigned Patient Location: ED.MAIN Current Patient Location: ED.MAIN Accession/Order Number: [id number] Exam Date: 07/23/2024 14:46 Report Date: 07/23/2024 [...] Patel M.D. 07/23/2024 2:46 PM Dictation Location: [place] [address] Electronically authenticated by: [id number] Y Date: 07/23/2024 14:46 Dictated By: Yovany Patel M.D. Signed By: 07/23/24 1449 DD/ 1446 TD/TT: Band Tacker: The [address] [address] XRay Report Signed Patient: SYEDA DELGADO MR#: [id number] : 1940 Acct:[id number] Age/Sex: 84 / F ADM Date: 07/23/24 Loc: ER Attending Dr: Ordering Physician: Pauline Ferrell Date of Service: 07/23/24 Procedure(s): XR kne e RT 3V Accession Number(s): [id number] cc: Galina Rogers M.D. ; Pauline Ferrell [place] [address] Patient Name: ALEXA DELGADO MRN: [id number] date: 1940 Sex: F Assigned Patient Location: ED.MAIN Current Patient Loca tion: ED.MAIN Accession/Order Numb er: [id number] Exam Date: 07/23/2024 14:46 Report Date: 07/23/2024 [...] 3V IMPRESSION: No fracture. Impression dictated by: Yovnay Patel M.D. 07/23/2024 2:46 PM Dictation Location: [place] [address] Electronically authenticated by: [id number] Y Date: 07/23/2024 14:46 Dictated By: Yovany Patel M.D. Signed By: 07/23/24 1449 DD/ 1446 TD/TT: Band Tacker: JENNA shoulder LT min 2V Reviewed date:07/23/2024 08:48:43 PM Interpretation: Performing Lab: Notes/Report: Source Facility: [place] [address] XRay Report Signed Patient: ALEXA DELGADO MR#: [id number] : 1940 Acct:[id number] Age/Sex: 84 / F ADM Date: 07/23/24 Loc: ER Attending Dr: Ordering Physician: Pauline Ferrell Date of Service: 07/23/24 Procedure(s): XR shoulder LT min 2V Accession Number(s): [id number] cc: Galina Rogers M.D.; Pauline Ferrell [place] [id number] Patient Name: ALEXA DELGADO MRN: [id number] date: 1940 Sex: F Assigned Patient Location: ED.MAIN Current Patient Location: ED.MAIN Accession/Order Number: [id number] Exam Date: 07/23/2024 14:47 Report Date: 07/23/2024 [...] suggesting underlying calcific tendinosis. Impression dictated by: Yovayn Patel M.D. 07/23/2024 2:48 PM Dictation Location: [place] [address] Electronically authenticated by: [id number] Y Date: 07/23/2024 14:48 Dictated By: Yovany Patel M.D. Signed By: 07/23/24 1451 DD/ 1448 TD/TT: Band Tacker: The [address] [address] XRay Report Signed Patient: SYEDA DELGADO MR#: [id number] : 1940 Acct:[id number] Age/Sex: 84 / F ADM Date: 07/23/24 Loc: ER Attending Dr: Ordering Physician: Pauline Ferrell Date of Service: 07/23/24 Procedure(s): XR felix ulder LT min 2V Accession Number(s): [id number] cc: Galina Rogers M.D. ; Pauline Ferrell [place] [id number] Patient Name: ALEXA DELGADO MRN: [id number] date: 1940 Sex: F Assigned Patient Location: ED.MAIN Current Patient Loca tion: ED.MAIN Accession/Order Numb er: [id number] Exam Date: 07/23/2024 14:47 Report Date: 07/23/2024 [...] Patel M.D. 07/23/2024 2:48 PM Dictation Location: [place] [address] Electronically authenticated by: [id number] Y Date: 07/23/2024 14:48 Dictated By: Yovany Patel M.D. Signed By: 07/23/24 1451 DD/ 1448 TD/TT: Band Tacker: CT cervical spine wo con Reviewed date:07/23/2024 08:48:43 PM Interpretation: Performing Lab: Notes/Report: Source Facility: [place] [address] CT Scan Report Signed Patient: ALEXA DELGADO MR#: [id number] : 1940 Acct:[id number] Age/Sex: 84 / F ADM Date: 07/23/24 Loc: ER Attending Dr: Ordering Physician: Pauline Ferrell Date of Service: 07/23/24 Procedure(s): CT cervical spine wo con Accession Number(s): [id number] cc: Galina Rogers M.D. [place] [address] Patient Name: ALEXA DELGADO MRN: [id number] date: 1940 Sex: F Assigned Patient Location: ED.MAIN Current Patient Location: ED.MAIN Accession/Order Number: [id number] Exam Date: 07/23/2024 14:38 Report Date: 07/23/2024 [...] Patel M.D. 07/23/2024 2:42 PM Dictation Location: [place] [address] Electronically authenticated by: [id number] Y Date: 07/23/2024 14:42 Dictated By: Yovany Patel M.D. Signed By: 07/23/245 DD/ 41 TD/TT: Band Tacker: [place] [address] CT Scan Report Signed Patient: SYEDA DELGADO MR#: [id number] : 1940 Acct:[id number] Age/Sex: 84 / F ADM Date: 07/23/24 Loc: ER Attending Dr: Ordering Physician: Pauline Ferrell Date of Service: 07/23/24 Procedure(s): CT cer vical spine wo con Accession Number(s): [id number] cc: Galina Rogers M.D. [place] [address] Patient Name: ALEXA DELGADO MRN: [id number] date: 1940 Sex: F Assigned Patient Location: ED.MAIN Current Patient Loca tion: ED.MAIN Accession/Order Numb er: [id number] Exam Date: 07/23/2024 14:38 Report Date: 07/23/2024 [...] Patel M.D. 07/23/2024 2:42 PM Dictation Location: [place] [address] Electronically authenticated by: [id number] Y Date: 07/23/2024 14:42 Dictated By: Yovany Patel M.D. Signed By: 07/23/24 1445 DD/ 1442 TD/TT: Band Tacker: XR forearm LT 2V Reviewed date:07/23/2024 08:48:43 PM Interpretation: Performing Lab: Notes/Report: Source Facility: [place] [address] [place] [address] XRay Report Signed Patient: ALEXA DELGADO MR#: [id number] : 1940 Acct:[id number] Age/Sex: 84 / F ADM Date: 07/23/24 Loc: ER Attending Dr: Ordering Physician: Pauline Ferrell Date of Service: 07/23/24 Procedure(s): XR forearm LT 2V Accession Number(s): [id number] cc: Galina Rogers M.D.; Pauline Ferrell [address] [address] Patient Name: ALEXA DELGADO MRN: [id number] date: 1940 Sex: F Assigned Patient Location: ED.MAIN Current Patient Location: ED.MAIN Accession/Order Number: [id number] Exam Date: 07/23/2024 14:47 Report Date: 07/23/2024 [...] Patel M.D. 07/23/2024 2:47 PM Dictation Location: [place] [address] Electronically authenticated by: [id number] Y Date: 07/23/2024 14:47 Dictated By: Yovany Patel M.D. Signed By: 07/23/24 1450 DD/ 1447 TD/TT: Band Tacker: [place] [address] XRay Report Signed Patient: SYEDA DELGADO MR#: [id number] : 1940 Acct:[id number] Age/Sex: 84 / F ADM Date: 07/23/24 Loc: ER Attending Dr: Ordering Physician: Pauline Ferrell Date of Service: 07/23/24 Procedure(s): XR for earm LT 2V Accession Number(s): [id number] cc: Galina Rogers M.D. ; Pauline Ferrell [address] [address] Patient Name: ALEXA DELGADO MRN: [id number] date: 1940 Sex: F Assigned Patient Location: ED.MAIN Current Patient Loca tion: ED.MAIN Accession/Order Numb er: [id number] Exam Date: 07/23/2024 14:47 Report Date: 07/23/2024 14:47 At the request of: PAULINE FERRELL Procedure: XR forear m LT 2V [...] Patel M.D. 07/23/2024 2:47 PM Dictation Location: [place] [address] Electronically authenticated by: [id number] Y Date: 07/23/2024 14:47 Dictated By: Yovany Patel M.D. Signed By: 07/23/24 1450 DD/ 1447 TD/TT: Band Tacker: CBC AUTO DIFF Reviewed date:09/23/2024 07:33:22 PM Interpretation: Performing Lab: Notes/Report: [facility] , White Blood Count 3.9 4.0-11.0 10 3/uL Red Blood Count 3.66 4.20-5.40 10 6/uL Hemoglobin 11.5 12.0-16.0 g/dL Hematocrit 35.4 36.0-48.0 % Mean Corpuscular Volume 96.7 81.0-99.0 fL Mean Corpuscular Hemoglobin 31.4 26.7-34.0 pg Mean Corpuscular HGB Conc 32.5 29.9-35.2 g/dL Red Cell Distribution Width 12.6 11.0-15.0 % Platelet Count 218 150-450 10 3/uL Mean Platelet Volume 9.4 9.5-13.5 fL Neutrophils Percent Auto 72.7 43.0-75.0 % Lymphocytes Percent Auto 5.2 20.5-60.0 % Monocytes Percent Auto 20.1 1.7-12.0 % Eosinophils Percent Auto 1.0 0.9-7.0 % Basophils Percent Auto 0.5 0.2-2.0 % Immature Granulocytes Pct Auto 0.5 0.0-0.5 % Neutrophils Absolute Auto 2.8 1.4-6.5 10 3/uL Lymphocytes Absolute Auto 0.2 1.2-3.8 10 3/uL Monocytes Absolute Auto 0.8 0.3-0.8 10 3/uL Eosinophils Absolute Auto 0.0 0.0-0.7 10 3/uL Basophils Absolute Auto 0.0 0.0-0.1 10 3/uL Immature Granulocytes Abs Auto 0.02 0.00-0.03 10 3/uL Performing Lab: see note ML - [facility] LB PROF 14(COMP METB) Reviewed date:09/23/2024 07:33:22 PM Interpretation: Performing Lab: Notes/Report: [facility] , Sodium 135 136-145 mmol/L Potassium 3.9 3.5-5.1 mmol/L Chloride 97 98-107 mmol/L Carbon Dioxide 30.9 21.0-32.0 mmol/L Anion Gap 11.0 Glucose 87 74-106 mg/dL Blood Urea Nitrogen 29.0 7.0-18.0 mg/dL Creatinine 0.96 0.55-1.02 mg/dL Estimated GFR ( Maddy >60 >=60 mL/min/1.73m 2 Estimated GFR (Non- Britney 55 >=60 mL/min/1.73m 2 BUN Creatinine Ratio 30.2 Calcium 9.7 8.5-10.1 mg/dL Bilirubin Total 0.4 0.2-1.0 mg/dL Aspartate Amino Transferase 29 15-37 U/L Alanine Aminotransferase 30 14-59 U/L Alkaline Phosphatase 78 46-116 U/L Total Protein 7.3 6.4-8.2 g/dL Albumin Level 3.6 3.4-5.0 g/dL Globulin 3.7 Albumin Globulin Ratio 1.0 Performing Lab: see note ML - [facility] LB UA RANDOM W or MICROSCOPIC Reviewed date:09/23/2024 07:33:22 PM Interpretation: Performing Lab: Notes/Report: [facility] , Color Urine LT. YELLOW YELLOW Clarity Urine CLEAR CLEAR Specific [place] Urine 1.010 1.005-1.025 pH Urine 7.5 5.0-9.0 Protein Urine NEGATIVE NEG/TRACE mg/dL Glucose Urine UA NEGATIVE NEGATIVE mg/dL Bilirubin Urine NEGATIVE NEGATIVE Ketones Urine NEGATIVE NEGATIVE mg/dL Blood Urine TRACE-I NEGATIVE Nitrite Urine NEGATIVE NEGATIVE Urobilinogen Urine 0.2 0.2-1.0 EU/dL Leukocyte Esterase Urine TRACE NEGATIVE WBC Urine 0-2 NONE SEEN #/HPF RBC Urine 0-2 0-2 #/HPF Bacteria Urine TRACE NONE SEEN #/HPF Mucus Urine NONE SEEN NONE SEEN Squamous Epithelial Cell Urine RARE NONE/RARE #/LPF Crystals Seen? None Seen None Seen #/HPF Cast Seen? NONE SEEN NONE SEEN #/LPF Performing Lab: see note ML - [facility] Urine Culture - [facility] Reviewed date:09/24/2024 06:32:44 PM Interpretation: Performing Lab: Notes/Report: [facility] , Urine Culture - [place] See Below For Report Urine Culture - [facility] No Growth 2 Days Urine Culture - FR Urine Culture - [facility] No Growth 2 Days Urine Culture - [facility] Testing performed a [facility] Urine Culture - [facility] No Growth 2 Days Urine Culture - [place] [address] [place] [id number] Urine Culture - FR No Growth 2 Days Performing Lab: see note - [facility] US renal bladder Reviewed date:09/24/2024 12:59:18 PM Interpretation: Performing Lab: Notes/Report: Source Facility: [place] [address] [place] [address] Ultrasound Report Signed Patient: ALEXA DELGADO MR#: [id number] : 1940 Acct:[id number] Age/Sex: 84 / F ADM Date: 09/24/24 Loc: US Attending Dr: Galina Rogers M.D. Ordering Physician: Galina Rogers M.D. Date of Service: 09/24/24 Procedure(s): US renal bladder Accession Number(s): [id number] cc: Galina Rogers M.D. The [place] [id number] Patient Name: ALEXA DELGADO MRN: [id number] date: 1940 Sex: F Assigned Patient Location: US Current Patient Location: US Accession/Order Number: [id number] Exam Date: 09/24/2024 12:48 Report Date: 09/24/2024 12:49 At the request of: GALINA ROGERS MD Procedure: US renal bladder BILATERAL RENAL AND BLADDER ULTRASOUND CLINICAL HISTORY: Bladder Retention COMPARISON: None FINDINGS: Estimation of renal size is approximately 9.5 cm on the right and 9.3 cm on the left. No contour deforming mass, shadowing stone or hydronephrosis. Cystic changes involving the kidneys. The urinary bladder is partially distended with a volume of 271 ml. No shadowing stone or focal lesion. Significant post void residual 67 mL. US/US renal bladder IMPRESSION: SIGNIFICANT POST VOID RESIDUAL OF 67 ML. FINDINGS ARE CONSISTENT WITH THE HISTORY. NO HYDRONEPHROSIS. Impression dictated by: Raz Norris Jr., D.O. 09/24/2024 12:49 PM Dictation Location: [place] [address] Electronically authenticated by: [id number] Y Date: 09/24/2024 12:49 Dictated By: Raz Norris M.D. Signed By: 09/24/24 1251 DD/ 1249 TD/TT: Band Tacker: [place] [address] Ultrasound Report Signed Patient: SYEDA DELGADO MR#: [id number] : 1940 Acct:[id number] Age/Sex: 84 / F ADM Date: 09/24/24 Loc: US Attending Dr: Keo Rogers M.D. Ordering Physician: Galina Rogers M.D. Date of Service: 09/24/24 Procedure(s): US zenobia al bladder Accession Number(s): [id number] cc: Galina Rogers M.D. [address] [address] Patient Name: ALEXA DELGADO MRN: [id number] date: 1940 Sex: F Assigned Patient Location: US Current Patient Loca tion: US Accession/Order Numb er: [id number] Exam Date: 09/24/2024 12:48 Report Date: 09/24/2024 12:49 At the request of: GALINA ROGERS MD Procedure: US renal bladder BILATERAL RENAL AND BLADDER ULTRASOUND CLINICAL HISTORY: Bl adder Retention COMPARISON: None FINDINGS: Estimation of renal size is approximately 9.5 cm on the right and 9.3 cm on the left. No contour deforming mass, shadowing stone or hydronephrosis. Cystic changes invol ving the kidneys. The urinary bladder is partially distended with a volume of 271 ml. No shadowing stone or f ocal lesion. Significant post void residual 67 mL. U S/US renal bladder IMPRESSION: SIGNIFICANT POST VOI D RESIDUAL OF 67 ML. FINDINGS ARE CONSISTENT WITH THE HISTORY. NO HYDRONEPHROSIS. Impression dictated by: Raz Norris Jr., D.O. 09/24/2024 12:49 PM Dictation Location: [place] [address] Electronically authenticated by: [id number] Y Date: 09/24/2024 12:49 Dictated By: Raz Norris M.D. Signed By: 09/24/24 1251 DD/ 1249 TD/TT: Band Tacker: XR HAND RT MIN 3V Reviewed date:08/02/2024 12:53:09 PM Interpretation: Performing Lab: Notes/Report: Source Facility: [place] [address] [place] [address] XRay Report Signed Patient: ALEXA DELGADO MR#: [id number] : 1940 Acct:[id number] Age/Sex: 84 / F ADM Date: 08/01/24 Loc: RAD Attending Dr: Epifanio Meza NP Ordering Physician: Epifanio Meza NP Date of Service: 08/01/24 Procedure(s): XR hand RT min 3V Accession Number(s): [id number] cc: Epifanio Meza NP; Galina Rogers M.D. [place] [id number] Patient Name: ALEXA DELGADO MRN: [id number] date: 1940 Sex: F Assigned Patient Location: [facility] Current Patient Location: [facility] Accession/Order Number: [id number] Exam Date: 08/01/2024 20:16 Report Date: 08/01/2024 [...] Esquivel M.D. 08/01/2024 8:18 PM Dictation Location: [place] [address] Electronically authenticated by: [id number] Y Date: 08/01/2024 20:18 Dictated By: Aiden Esquivel D.O. Signed By: 08/01/242020 DD/ 17 TD/TT: Band Tacker: [place] [address] XRay Report Signed Patient: SYEDA DELGADO MR#: [id number] : 1940 Acct:[id number] Age/Sex: 84 / F ADM Date: 08/01/24 Loc: [facility] Attending Dr: Epifanio lemons NP Ordering Physician: Epifanio Meza NP Date of Service: 08/01/24 Procedure(s): XR hurtado d RT min 3V Accession Number(s): [id number] cc: Epifanio Meza NP; Galina Rogers M.D. [place] [phone] Patient Name: ALEXA DELGADO MRN: [id number] date: 1940 Sex: F Assigned Patient Location: [facility] Current Patient Loca tion: RAD Accession/Order Numb er: [id number] Exam Date: 08/01/2024 20:16 Report Date: 08/01/2024 [...] Esquivel M.D. 08/01/2024 8:18 PM Dictation Location: [place] [address] Electronically authenticated by: [id number] Y Date: 08/01/2024 20:18 Dictated By: Max Esquivel D.O. Signed By: 08/01/242020 DD/ 17 TD/TT: Band Tacker: CT head/brain wo con Reviewed date:07/23/2024 08:48:43 PM Interpretation: Performing Lab: Notes/Report: Source Facility: [place] [address] [place] [address] CT Scan Report Signed Patient: ALEXA DELGADO MR#: [id number] : 1940 Acct:[id number] Age/Sex: 84 / F ADM Date: 07/23/24 Loc: ER Attending Dr: Ordering Physician: Pauline Ferrell Date of Service: 07/23/24 Procedure(s): CT head/brain wo con Accession Number(s): [id number] cc: Galina Rogers M.D. [place] [address] Patient Name: ALEXA DELGADO MRN: [id number] date: 1940 Sex: F Assigned Patient Location: ED.MAIN Current Patient Location: ED.MAIN Accession/Order Number: [id number] Exam Date: 07/23/2024 14:31 Report Date: 07/23/2024 [...] Patel M.D. 07/23/2024 2:38 PM Dictation Location: [place] [address] Electronically authenticated by: [id number] Y Date: 07/23/2024 14:38 Dictated By: Yovany Patel M.D. Signed By: 07/23/24 1440 DD/ 1438 TD/TT: Band Tacker: The [address] [address] [address] Scan Report Signed Patient: SYEDA DELGADO MR#: [id number] : 1940 Acct:[id number] Age/Sex: 84 / F ADM Date: 07/23/24 Loc: ER Attending Dr: Ordering Physician: Pauline Ferrell Date of Service: 07/23/24 Procedure(s): CT head/brain wo con Accession Number(s): [id number] cc: Galina Rogers M.D. 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 Atherosclerotic changes are noted [...] suggesting a remote infarct. Impression dictated by: oYvany Patel M.D. 07/23/2024 2:38 PM Dictation Location: [place] [address] Electronically authenticated by: [id number] Y Date: 07/23/2024 14:38 Dictated By: Yovany Patel M.D. Signed By: 07/23/24 1440 DD/ 1438 TD/TT: Band Tacker: CT PELVIS WO CON Reviewed date:07/23/2024 08:48:43 PM Interpretation: Performing Lab: Notes/Report: Source Facility: [place] [address] CT Scan Report Signed Patient: ALEXA DELGADO MR#: [id number] : 1940 Acct:[id number] Age/Sex: 84 / F ADM Date: 07/23/24 Loc: ER Attending Dr: Ordering Physician: Pauline Ferrell Date of Service: 07/23/24 Procedure(s): CT pelvis wo con Accession Number(s): [id number] cc: Galina Rogers M.D. [place] [address] Patient Name: ALEXA DELGADO MRN: [id number] date: 1940 Sex: F Assigned Patient Location: ED.MAIN Current Patient Location: ED.MAIN Accession/Order Number: [id number] Exam Date: 07/23/2024 14:42 Report Date: 07/23/2024 [...] Patel M.D. 07/23/2024 2:46 PM Dictation Location: [place] [address] Electronically authenticated by: [id number] Y Date: 07/23/2024 14:46 Dictated By: Yovany Patel M.D. Signed By: 07/23/24 1448 DD/ 1446 TD/TT: Band Tacker: [place] [address] CT Scan Report Signed Patient: SYEDA DELGADO MR#: [id number] : 1940 Acct:[id number] Age/Sex: 84 / F ADM Date: 07/23/24 Loc: ER Attending Dr: Ordering Physician: Pauline Ferrell Date of Service: 07/23/24 Procedure(s): CT pel vis wo con Accession Number(s): [id number] cc: Galina Rogers M.D. [place] [address] Patient Name: ALEXA DELGADO MRN: [id number] date: 1940 Sex: F Assigned Patient Location: ED.MAIN Current Patient Loca tion: ED.MAIN Accession/Order Numb er: [id number] Exam Date: 07/23/2024 14:42 Report Date: 07/23/2024 [...] Patel M.D. 07/23/2024 2:46 PM Dictation Location: [place] [address] Electronically authenticated by: [id number] Y Date: 07/23/2024 14:46 Dictated By: Yovany Patel M.D. Signed By: 07/23/24 1448 DD/ 1446 TD/TT: Band Tacker: PROF Andrade(COMP METB) Reviewed date:04/04/2024 12:57:35 PM Interpretation: Performing Lab: Notes/Report: [facility] , Sodium 136 136-145 mmol/L Potassium [...] Performing Lab: see note ML - [facility] LB PROF 14(COMP METB) Reviewed date:03/23/2024 09:20:24 AM Interpretation: Performing Lab: Notes/Report: [facility] , Sodium 138 136-145 mmol/L Potassium 2.8 3.5-5.1 mmol/L RESULTS [facility] ADMIN[facility] AT 1553 Chloride 100 98-107 mmol/L Carbon [...] Globulin Ratio 1.1 Performing Lab: see note - [facility] CBC AUTO DIFF Reviewed date:03/23/2024 09:20:24 AM Interpretation: Performing Lab: Notes/Report: [facility] , White Blood Count 4.3 4.0-11.0 [...] 9.2 9.5-13.5 fL Performing Lab: see note [facility] LB Urine Culture, Routine Reviewed date:01/05/2024 09:22:56 PM [...] Hospital Urine Culture, Routine Urine Culture, Routine [address] [place], [place] [id number] Urine Culture, Routine Urine Culture, Routine Agricultural Mechanic: Kirk Ruelas PhD, Phone: [phone] Urine Culture, Routine Performing Lab: see note - [facility] LB SEE REPORT - Government Affairs Specialist Id information not found for OBX-specific executive producer promos legend UA RANDOM W or MICROSCOPIC Reviewed date:01/04/2024 07:32:57 PM Interpretation: Performing Lab: Notes/Report: [facility] , Color Urine LT. YELLOW YELLOW Clarity Urine CLEAR CLEAR Specific [place] Urine 1.010 1.005-1.025 pH Urine 8.0 5.0-9.0 [...] #/LPF Performing Lab: see note ML - [facility] LB MM screening mammo BI Reviewed date:12/05/2023 08:02:13 PM Interpretation: Performing Lab: Notes/Report: Source Facility: [facility]-[address] [place] [address] [place] [address] Mammography Report Signed Patient: ALEXA DELGADO MR#: [id number] : 1940 Acct:[id number] Age/Sex: 83 / F ADM Date: 12/02/23 Loc: MAMMO Attending Dr: Galina Rogers M.D. Ordering Physician: Galina Rogers M.D. Results: Date of Service: 12/02/23 Follow Up: Procedure(s): MM screening mammo BI Accession Number(s): [id number] cc: Galina Rogers M.D. Patient Name: ALEXA DELGADO MR#: [id number] : 1940 Exam Date: 12/02/2023 Ordering Doctor: [...] None Family Cancers None LOCATION: [facility] BREAST COMPOSITION: There are scattered areas [...] M.D. Signed By: 12/05/23914 DD/ 2 TD/TT: Band Tacker: [place] [address] Mammography Report Signed Patient: SYEDA DELGADO MR#: [id number] : 1940 Acct:[id number] Age/Sex: 83 / F ADM Date: 12/02/23 Loc: MAMMO Attending Dr: Keo Rogers M.D. Ordering Physician: Galina Rogers M.D. Results: Date of Service: 01/14 Follow Up: Procedure(s): MM screening mammo BI Accession Number(s): [id number] cc: Galina Rogers M.D. Patient Name: ALEXA DELGADO MR#: [id number] : 1940 Exam Date: 12/02/2023 Ordering Doctor: [...] Family Cancers None LOCATION: The [facility] BREAST COMPOSITION: There are scattered areas of [...] M.D. Signed By: 12/05/23914 DD/ 2 TD/TT: Band Tacker: VC EXT Venous Reflux CLEMENCIA LMT D Reviewed date:11/11/2023 04:02:48 PM Interpretation: Performing Lab: Notes/Report: Source Facility: [place] [address] Vein Report Signed Patient: ALEXA DELGADO MR#: [id number] : 1940 Acct:[id number] Age/Sex: 83 / F ADM Date: 11/11/23 Loc: VC Attending Dr: Galina Rogers M.D. Ordering Physician: Galina Rogers M.D. Date of Service: 11/11/23 Procedure(s): VC EXT Venous Reflux CLEMENCIA LMTD Accession Number(s): [id number] cc: Galina Rogers M.D. Patient Name: ALEXA DELGADO MR#: [id number] : 1940 Exam Date: 11/11/2023 Ordering Doctor: [...] chronic thrombus visualized Compressibility: Normal Flow: Normal Supportability Engineer: Dist/med calf 3.3mm with 0s reflux. Tech [...] Signed By: 11/11/23 1425 DD/ 1424 TD/TT: Band Tacker: [place] [address] Vein Report Signed Patient: SYEDA DELGADO MR#: [id number] : 1940 Acct:[id number] Age/Sex: 83 / F ADM Date: 11/11/23 Loc: VC Attending Dr: Keo Rogers M.D. Ordering Physician: Galina Rogers M.D. Date of Service: 11/11/23 Procedure(s): VC EXT Venous Reflux CLEMENCIA LMTD Accession Number(s): [id number] cc: Galina Rogers M.D. Patient Name: ALEXA DELGADO MR#: [id number] : 1940 Exam Date: 11/11/2023 Ordering Doctor: [...] Reflu x/ Time (sec) Proximal Thigh 4.4 Y es 1.0 Mid Thigh 3.9 Yes 0.5 Distal [...] chronic thrombus visualized Compressibility: Normal Flow: Normal Supportability Engineer: Dist/med calf 3.3mm with 0s reflux. Tech [...] Dictated By: Asa Suarez M.D. Signed By: 11/11/235 DD/ 23 TD/TT: Band Tacker: LIZ jai perf SPECT rest str Reviewed date:10/25/2023 08:17:57 PM Interpretation: Performing Lab: Notes/Report: Source Facility: [place] [address] Nuclear Medicine Report Signed Patient: ALEXA DELGADO MR#: [id number] : 1940 Acct:[id number] Age/Sex: 83 / F ADM Date: 10/25/23 Loc: NM Attending Dr: Galina Rogers M.D. Ordering Physician: Galina Rogers M.D. Date of Service: 10/25/23 Procedure(s): NM jai perf SPECT rest str Accession Number(s): [id number] cc: Galina Rogers M.D. Patient Name: ALEXA DELGADO MR#: [id number] : 1940 Exam Date: 10/25/2023 Ordering Doctor: [...] Signed By: 10/25/23 1548 DD/ 1547 TD/TT: Band Tacker: [place] [address] Nuclear Medicine Report Signed Patient: SYEDA DELGADO MR#: [id number] : 1940 Acct:[id number] Age/Sex: 83 / F ADM Date: 10/25/23 Loc: NM Attending Dr: Keo Rogers M.D. Ordering Physician: Galina Rogers M.D. Date of Service: 10/25/23 Procedure(s): NM jai perf SPECT rest str Accession Number(s): [id number] cc: Galina Rogers M.D. Patient Name: ALEXA DELGADO MR#: [id number] : 1940 Exam Date: 10/25/2023 Ordering Doctor: [...] Signed By: 10/25/23 1548 DD/ 1547 TD/TT: Band Tacker: Troponin I High Sensitivity Reviewed date:10/13/2023 07:17:11 PM Interpretation: Performing Lab: Notes/Report: [facility] , Troponin I High Sensitivity 13.9 4.0-51.3 pg/mL CUT-OFF POINTS HAVE BEEN ESTABLISHED BASED ON THE FOURTH UNIVERSAL DEFINITION OF MYOCARDIAL INFARCTION. THE UPPER REFERENCE LIMIT (URL) OF TROPONIN, DEFINED THE 99TH PERCENTILE OF cTnI DISTRIBUTION IN A REFERENCE POPULATION, HAS BEEN CONFIRMED THE DECISION THRESHOLD FOR MO DIAGNOSIS. 99TH PERCENTILE = 51.4 PG/ML NOTE: HIGH-SENSITIVITY TROPONIN ASSAY IS NOT INTENDED TO BE USED IN ISOLATION BUT SHOULD BE INTERPRETED IN CONJUNCTION WITH OTHER DIAGNOSTIC AND CLINICAL INFORMATION. Performing Lab: see note ML - [facility] LB CT angio chest Reviewed date:10/13/2023 07:17:11 PM Interpretation: Performing Lab: Notes/Report: Source Facility: [place] [address] CT Scan Report Signed Patient: ALEXA DELGADO MR#: [id number] : 1940 Acct:[id number] Age/Sex: 83 / F ADM Date: 10/12/23 Loc: ER Attending Dr: Ordering Physician: Fabio De La Rosa Date of Service: 10/12/23 Procedure(s): CT angio chest Accession Number(s): [id number] cc: Galina Rogers M.D. [place] [address] Patient Name: ALEXA DELGADO MRN: [facility]:[id number] date: 1940 Sex: F Assigned Patient Location: ER Current Patient Location: ER Accession/Order Number: [id number] Exam Date: 10/12/2023 23:30 Report Date: 10/13/2023 [...] 04/01/2017, therefore statistically benign. Electronically authenticated by: LENNY MCMAHAN Date: 10/13/2023 00:18 Dictated By: Lenny Mcmahan D.O. Signed By: 10/13/23 0021 DD/ 0018 TD/TT: Band Tacker: The [address] [address] [address] Scan Report Signed Patient: SYEDA DELGADO MR#: [id number] : 1940 Acct:[id number] Age/Sex: 83 / F ADM Date: 10/12/23 Loc: ER Attending Dr: Ordering Physician: Fabio De La Rosa Date of Service: 10/12/23 Procedure(s): CT ang io chest Accession Number(s): [id number] cc: Galina Rogers M.D. [place] [address] Patient Name: ALEXA DELGADO MRN: [facility]:[id number] date: 1940 Sex: F Assigned Patient Location: ER Current Patient Loca tion: ER Accession/Order Numb er: [id number] Exam Date: 10/12/2023 23:30 Report Date: 10/13/2023 [...] 04/01/2017, therefore statistically benign. Electronically authenticated by: LENNY MCMAHAN Date: 10/13/2023 00:18 Dictated By: Lenny Mcmahan D.O. Signed By: 10/13/23 0021 DD/ 0018 TD/TT: Band Tacker: JESSICA echo doppler complete Reviewed date:10/13/2023 07:17:11 PM Interpretation: Performing Lab: Notes/Report: Source Facility: [facility] [place] [address] [place] [address] Cardiology Report Signed Patient: ALEXA DELGADO MR#: [id number] : 1940 Acct:[id number] Age/Sex: 83 / F ADM Date: 10/12/23 Loc: MS 230-[address]: Galina Rogers M.D. Ordering Physician: Galina Rogers M.D. Date of Service: 10/13/23 Procedure(s): CA echo doppler complete Accession Number(s): [id number] cc: Galina Rogers M.D. Patient Name: ALEXA DELGADO MR#: [id number] : 1940 Exam Date: 10/13/2023 Ordering Doctor: [...] M.D. Signed By: 10/13/231704 DD/ 02 TD/TT: Band Tacker: [place] [address] Cardiology Report Signed Patient: SYEDA DELGADO MR#: [id number] : 1940 Acct:[id number] Age/Sex: 83 / F ADM Date: 10/12/23 Loc: MS 230-[address]: Keo Rogers M.D. Ordering Physician: Galina Rogers M.D. Date of Service: 10/13/23 Procedure(s): CA ech o doppler complete Accession Number(s): [id number] cc: Galina Rogers M.D. Patient Name: ALEXA DELGADO MR#: [id number] : 1940 Exam Date: 10/13/2023 Ordering Doctor: [...] Dictated By: Raz Luis M.D. Signed By: 10/13/235 DD/ 02 TD/TT: Band Tacker: Troponin I High Sensitivity Reviewed date:10/13/2023 07:17:11 PM Interpretation: Performing Lab: Notes/Report: [facility] , Troponin I High Sensitivity 21.2 4.0-51.3 pg/mL CUT-OFF POINTS HAVE BEEN ESTABLISHED BASED ON THE FOURTH UNIVERSAL DEFINITION OF MYOCARDIAL INFARCTION. THE UPPER REFERENCE LIMIT (URL) OF TROPONIN, DEFINED THE 99TH PERCENTILE OF cTnI DISTRIBUTION IN A REFERENCE POPULATION, HAS BEEN CONFIRMED THE DECISION THRESHOLD FOR MO DIAGNOSIS. 99TH PERCENTILE = 51.4 PG/ML NOTE: HIGH-SENSITIVITY TROPONIN ASSAY IS NOT INTENDED TO BE USED IN ISOLATION BUT SHOULD BE INTERPRETED IN CONJUNCTION WITH OTHER DIAGNOSTIC AND CLINICAL INFORMATION. Performing Lab: see note ML - The [facility] LB CBC no Diff (Hemogram) Reviewed date:10/13/2023 07:17:11 PM Interpretation: Performing Lab: Notes/Report: [facility] , White Blood Count 5.4 4.0-11.0 [...] fL Performing Lab: see note ML - The [facility] LB TSH Reviewed date:10/13/2023 07:17:11 PM Interpretation: Performing Lab: Notes/Report: [facility] , Thyroid Stimulating Hormone 0.032 0.358-3.740 uIU/mL Performing Lab: see note ML - [facility] LB PROF CHEM 8 (BAS METB) Reviewed date:10/13/2023 07:17:11 PM Interpretation: Performing Lab: Notes/Report: [facility] , Sodium 134 136-145 mmol/L Potassium 4.0 3.5-5.1 mmol/L Chloride 98 98-107 mmol/L Carbon Dioxide 28.0 21.0-32.0 mmol/L Anion Gap 12.0 Glucose 102 74-106 mg/dL Blood Urea Nitrogen 21.0 7.0-18.0 mg/dL Creatinine 0.87 0.55-1.02 mg/dL Estimated GFR ( Maddy >60 >=60 Estimated GFR (Non- Britney >60 >=60 BUN Creatinine Ratio 24.1 Calcium 9.0 8.5-10.1 mg/dL Performing Lab: see note ML - The [facility] LB LIPID PROFILE Reviewed date:10/13/2023 07:17:11 PM Interpretation: Performing Lab: Notes/Report: [facility] , Triglycerides 64 <=150 mg/dL Cholesterol [...] RISK Performing Lab: see note ML - The [facility] LB GLYCOHEMOGLOBIN A1C Reviewed date:10/13/2023 07:17:11 PM Interpretation: Performing Lab: Notes/Report: [facility] , Glycohemoglobin A1C 5.2 4.5-6.2 % ADA RECOMMENDED LIMIT 4.0 - 6.0 ADA THERAPEUTIC TARGET < 7.0 ACTION SUGGESTED > 7.0 Estimated Average Glucose 103 Performing Lab: see note - [facility] LB BNP Reviewed date:10/18/2023 03:44:55 PM Interpretation: Performing Lab: Notes/Report: [facility] , NT Pro B Type Natriuretic Pept 425.0 <=1800.0 pg/mL Performing Lab: see note - [facility] LB XR chest 1V Reviewed date:10/13/2023 07:17:11 PM Interpretation: Performing Lab: Notes/Report: Source Facility: [place] [address] XRay Report Signed Patient: ALEXA DELGADO MR#: [id number] : 1940 Acct:[id number] Age/Sex: 83 / F ADM Date: 10/12/23 Loc: ER Attending Dr: Ordering Physician: Fabio De La Rosa Date of Service: 10/12/23 Procedure(s): XR chest 1V Accession Number(s): [id number] cc: Fabio De La Rosa; Galina Rogers M.D. [place] [id number] Patient Name: ALEXA DELGADO MRN: [id number] date: 1940 Sex: F Assigned Patient Location: ER Current Patient Location: ER Accession/Order Number: [id number] Exam Date: 10/12/2023 22:07 Report Date: 10/12/2023 [...] M.D. Signed By: 10/12/232299 DD/ 57 TD/TT: Band Tacker: [place] [address] XRay Report Signed Patient: SYEDA DELGADO MR#: [id number] : 1940 Acct:[id number] Age/Sex: 83 / F ADM Date: 10/12/23 Loc: ER Attending Dr: Ordering Physician: Fabio De La Rosa Date of Service: 10/12/23 Procedure(s): XR chest 1V Accession Number(s): [id number] cc: Fabio De La Rosa; Galina Rogers M.D. [place] [id number] Patient Name: ALEXA DELGADO MRN: [facility]:[id number] date: 1940 Sex: F Assigned Patient Location: ER Current Patient Loca tion: ER Accession/Order Numb er: [id number] Exam Date: 10/12/2023 22:07 Report Date: 10/12/2023 [...] M.D. Signed By: 10/12/232299 DD/ 57 TD/TT: Band Tacker: ECG 12 lead Reviewed date:10/19/2023 08:39:19 AM Interpretation: Performing Lab: Notes/Report: Source Facility: [place] [address] Electrocardiograph Report Signed Patient: ALEXA DELGADO MR#: [id number] : 1940 Acct:[id number] Age/Sex: 83 / F ADM Date: 10/12/23 Loc: MS 230-[address]: Galina Rogers M.D. 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 Signed By: 10/18/232217 DD/ 41 TD/TT: Band Tacker: [place] [address] Electrocardiograph Report Signed Patient: SYEDA DELGADO MR#: [id number] : 1940 Acct:[id number] Age/Sex: 83 / F ADM Date: 08/21/24 Loc: MS 230-[address]: Keo Rogers M.D. 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 Signed By: 10/18/232217 DD/ 41 TD/TT: Band Tacker: Troponin I High Sensitivity Reviewed date:10/13/2023 07:17:11 PM Interpretation: Performing Lab: Notes/Report: [facility] , Troponin I High Sensitivity 18.6 4.0-51.3 pg/mL CUT-OFF POINTS HAVE BEEN ESTABLISHED BASED ON THE FOURTH UNIVERSAL DEFINITION OF MYOCARDIAL INFARCTION. THE UPPER REFERENCE LIMIT (URL) OF TROPONIN, DEFINED THE 99TH PERCENTILE OF cTnI DISTRIBUTION IN A REFERENCE POPULATION, HAS BEEN CONFIRMED THE DECISION THRESHOLD FOR MO DIAGNOSIS. 99TH PERCENTILE = 51.4 PG/ML NOTE: HIGH-SENSITIVITY TROPONIN ASSAY IS NOT INTENDED TO BE USED IN ISOLATION BUT SHOULD BE INTERPRETED IN CONJUNCTION WITH OTHER DIAGNOSTIC AND CLINICAL INFORMATION. Performing Lab: see note ML - [facility] LB PROF CHEM 8 (BAS METB) Reviewed date:10/13/2023 07:17:11 PM Interpretation: Performing Lab: Notes/Report: [facility] , Sodium 132 136-145 mmol/L Potassium 4.5 3.5-5.1 mmol/L Chloride 94 98-107 mmol/L Carbon Dioxide 30.0 21.0-32.0 mmol/L Anion Gap 12.5 Glucose 113 74-106 mg/dL Blood Urea Nitrogen 26.0 7.0-18.0 mg/dL Creatinine 0.92 0.55-1.02 mg/dL Estimated GFR ( Maddy >60 >=60 Estimated GFR (Non- Britney 58 >=60 BUN Creatinine Ratio 28.3 Calcium 9.0 8.5-10.1 mg/dL Performing Lab: see note ML - [facility] LIVER PROFILE Reviewed date:10/13/2023 07:17:11 PM Interpretation: Performing Lab: Notes/Report: [facility] , Bilirubin Total 0.2 0.2-1.0 mg/dL Bilirubin Direct 0.1 0.0-0.2 mg/dL Aspartate Amino Transferase 27 15-37 U/L Alanine Aminotransferase 35 14-59 U/L Alkaline Phosphatase 80 46-116 U/L Total Protein 6.5 6.4-8.2 g/dL Albumin Level 3.5 3.4-5.0 g/dL Globulin 3.0 Albumin Globulin Ratio 1.2 Performing Lab: see note ML - [facility] LIPASE Reviewed date:10/13/2023 07:17:11 PM Interpretation: Performing Lab: Notes/Report: [facility] , Lipase 67.0 16.0-77.0 U/L Performing Lab: see note ML - [facility] LB D-DIMER Reviewed date:10/13/2023 07:17:11 PM Interpretation: Performing Lab: Notes/Report: [facility] , D Dimer 0.78 <=0.59 mg/L [...] Performing Lab: see note ML - [facility] CBC AUTO DIFF Reviewed date:10/13/2023 07:17:11 PM Interpretation: Performing Lab: Notes/Report: [facility] , White Blood Count 6.2 4.0-11.0 [...] Performing Lab: see note ML - [facility] LB Reason For Referral Diagnosis 1 Weakness (R53.1) Referral Organization [facility] Referring Provider First Name Bang Referring Provider Last Name [facility] Referring Provider [facility] Referred Provider [facility], Physical Therap y Referred Provider Specialty Physical The rapist General Notes Sydnee Ojeda 2024 09:14:46 AM >[facility] as well Referral Priority Routine Diagnosis 1 Urinary retention (R 33.9) Referral Organization [facility] Referring Provider First Name Bang Referring Provider Last Name Sue Referring Provider [facility] Referred Provider Bryan Sherman Referred Provider Specialty Urology Referral Priority Routine Medications Medication SIG (Take, [...] 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 for 90 Active Levothyroxine Sodium [...] other day for 30 days Active Saline [place] 0.65 % as directed Nasally 07/20/2023 Active Immunizations Vaccine Route Administration Date Status Comme nts Flu, Fluad (00533) 65 yrs+, single-dose syringe (6658-6849) Unknown 10/25/2022 Administered Social History Tobacco Use: [...] Problem Status W/U Status Risk Notes Problem 28306862 Age-related osteoporosis without current pathological fracture (M81.0) Active confirmed Problem 729850078 Obesity, unspecified (E66.9) Active confirmed Problem 62098370 Hyperlipidemia, unspecified (E78.5) Active confirmed Problem 2635628 Supraventricular tachycardia (I47.1) Active confirmed Problem Chronic respiratory failure (41738701) Chronic respiratory failure with hypoxia (J96.11) Active confirmed Problem Arthropathies and related disorders (553769093) Other specific arthropathies, not elsewhere classified, unspecified hand (M12.849) Active confirmed Problem 117252522 Other forms of scoliosis, lumbar region (M41.86) Active confirmed Problem Lumbosacral spondylosis without myelopathy (23276641) Other spondylosis, lumbar region (M47.896) Active confirmed Problem 81286875 Other intervertebral disc degeneration, 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) Active confirmed Problem 83479119 Other intervertebral disc degeneration, lumbar region (M51.36) Active confirmed Problem Chest pain (55625466) Chest pain (R07.9) Active confirmed Problem Hypertension (77901716) Hypertension (I10) Active confirmed Problem Hypothyroidism (52327670) Hypothyroidism (E03.9) Active confirmed Problem Coronary artery disease (43775114) CAD (coronary artery disease) (I25.10) Active confirmed Problem Hypothyroid (92403833) Hypothyro id (E03.9) Active confirmed Problem Arthritis (6668376) Arthritis (M19.90) Active c onfirmed Problem Sleep apnea (30444809) 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) Active confirmed Problem Obstructive sleep apnea syndrome (80953033) BETO (obstructive sleep apnea) (G47.33) Active confirmed Problem Dementia (60253356) Dementia (F03.90) Active co nfirmed Problem Transient ischemic attack (577267712) TIA (transient ischemic attack) (G45.9) Active confirmed Problem Confusion (48303389) Confusion (R41.0) Active c onfirmed Problem Allergic rhinitis (23639189) Allergic rhinitis (J30.9) Active confirmed Problem Localized, primary osteoarthritis of the pelvic region and thigh (475887075) Osteoarthritis of right hip (M16.11) Active confirmed Problem Stasis dermatitis (disorder) (93206072) Venous stasis dermatitis (I83.10) Active confirmed Problem Acquired hypothyroidism (326828099) Acquired hypothyroidism (E03.9) Active confirmed Problem Sciatica (81760284) Sciatica (M54.30) Active co nfirmed Problem Arthritis of both knees (0387972762701357) Arthritis of both knees (M19.90) Active confirmed Problem Seasonal allergic rhinitis (388127788) Seasonal allergic rhinitis (J30.2) Active confirmed Problem Memory loss (95768362) Memory lo ss (R41.3) Active confirmed Problem Scoliosis (616271158) Scoliosis (M41.9) Active confirmed Problem Hyperthyroidism (69643626) Hyperthyroidism (E05.90) Active confirmed Problem Laboratory test resu lt abnormal (106746381) Abnormal laboratory test (R89.9) Active confirmed Problem Cervical spondylosis (833524628) Cervical spondylosis (M47.812) Active confirmed Problem Degeneration of cervical intervertebral disc (75380042) Degenerative cervical disc (M50.30) Active confirmed Problem Fluid overload (38553616) Fluid overload (E87.70) Active confirmed Problem Disorder of lumbar disc (489460850) Disc disorder of lumbar region (M51.9) Active confirmed Problem Edema (008531025) Bilateral leg edema (R60.0) Active confirmed Problem Allergic arthritis o f the shoulder region (725493936) 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) Active confirmed Problem Monocytosis (24138073) Monocytos is (D72.821) Active confirmed Problem Otitis externa (2039533) External otitis (H60.90) Active confirmed Problem Displacement of lumb ar intervertebral disc without myelopathy (57991439) 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) Active confirmed Problem Essential hypertensi on (08971491) BP (high blood pressure) (I10) Active confirmed Problem Pure hypercholesterolemia (191604054) Pure hypercholesterolem ia, unspecified (E78.00) Active confirmed Problem Thyromegaly (8937764) Thyromegal y (E01.0) Active confirmed Problem Diastolic heart failure (491100149) CHF (congestive heart failure), NYHA class I, unspecified failure chronicity, diastolic (I50.30) Active confirmed Problem Laceration of ar m, left, subsequent encounter (S41.112D) Active confirmed Problem Mixed anxiety and depressive disorder (297883675) Anxiety and depression (F41.8) Active confirmed Problem Secondary pulmonary hypertension (96776446) Other secondary pulmonary hypertension (I27.29) Active confirmed Problem Poor short-term lynette ry (270996311) Poor short-term memory (R41.3) Active confirmed Problem 720462954 Body mass index [BMI] 31.0-31.9, adult (Z68.31) Active confirmed Problem Easy bruising (684925493) Easy bruisability (R23.3) Active confirmed Vital Signs Heart Rate 96 /min 03/22/2024 Temperature 99.8 degrees Fahrenheit 03/22/2024 Oximetry 96 % 03/22/2024 Blood pressure diastolic 80 mm Hg 08/06/2024 Height 60 in 08/06/2024 Blood pressure systolic 150 mm Hg 08/06/2024 Weight 170 lbs 08/06/2024 BMI 33.2 kg/m2 08/06/2024 Procedures Procedure Date Ordered Date Performed Result Body Sit e JASON Ankle Brachial Index (55075) 10/31/2023 N/A JASON Segmental Pressure Study of Lower Extremity 10/31/2023 N/A Encounters Encounter Location Date Provider Diagnosis [facility] [address] [place] [address] 09/23/2024 Bang Rogers [facility] [address] [place] [address] 09/24/2024 Bang Rogers Urinary retention R3 3.9 [facility] [address] [place] [address] 03/22/2024 Bang Rogers [facility] [address] [place] [address] 03/23/2024 Judi Wiseman Abnormal laboratory test R89.9 [facility] [address] [facility] [place] [address] 04/04/2024 Judi Wiseman [facility] [address] [facility] [place] [address] 04/10/2024 Bang Rogers Weakness R53.1 [facility] [address] [facility] [place] [address] 05/28/2024 Bang Mcdowelly [facility] [address] [facility] [place] [facility] [place] [address] 09/20/2024 Bang Rogers Abnormal laboratory test R89.9 ; Confusion R41.0 and Bladder retention R33.9 [facility] [address] [facility] [place] [address] 11/11/2023 Bang Rogers [facility] [address] [facility] [place] [address] 12/05/2023 Bang Mcdowelly [facility] [address] [facility] [place] [address] 01/04/2024 Bang Rogers UTI (urinary tract infection) N39.0 [facility] [address] [facility] [place] [address] 01/04/2024 Bang Rogers [facility] [address] [facility] [place] [address] 01/26/2024 Bang Rogers [facility] [address] [facility] [place] [address] 03/21/2024 Bang Rogers [facility] [address] [facility] [place] [address] 10/13/2023 Bang Rogers [facility] [address] [facility] [place] [address] 10/21/2023 Bang Rogers Spontaneous ecchymos es R23.3 [facility] [address] [facility] [place] [address] 10/24/2023 Bang Rogers [facility] [address] [facility] [place] [address] 10/25/2023 Bang Hoy [facility] [address] [place] [address] 04/10/2024 [place] Encounter for Medica re annual wellness exam Z00.[address] [address] 08/06/2024 [place] Laceration of arm, l eft, subsequent encounter S41.112D [address] [address] 10/14/2023 [place] Hypertension I10 and Chest pain R07.[address] [address] 01/25/2024 [place] Poor short-term lynette ry R41.3 ; Hypothyroidism E03.9 ; Pure hypercholesterolemia, unspecified E78.00 ; TIA (transient ischemic attack) G45.9 and Hypertension I10 [address] [address] 03/22/2024 Judi Ivone Gastroenteritis K52. [address] [address] 07/25/2024 [place] Laceration of arm, right, initial encounter S41.111A and H/O fall Z91.[address] [address] 07/30/2024 [place] Laceration of arm, l eft, subsequent encounter S41.112D [address] [address] 10/31/2023 [place] Bilateral leg edema R60.0 and Venous stasis dermatitis I83.10 Assessments Encounter Date Diagnosis (ICD Code) Assessment [...] - R89.9) 09/20/2024 Confusion (ICD-10 - R41.0) 09/24/2024 Urinary retention (ICD-10 - R33.9) 09/20/2024 Bladder retention (ICD-10 - R33.9) 01/25/2024 [...] 08/12/2023 CMP 03/23/2024 JASON Ankle Brachial Index (74640) 024 [place] 08/18/2022 BLEEDING TIME 08/12/2023 CBC [...] Coverage End Date MEDICARE RAILROAD [address] [address] [place], [place] [id number] Alexa Delgado Self - patient is the insured 5 [facility] [address] [place] [address] [id number] Grzegorz Delgado Spouse - patient is the [...] Surgical History Surgery Date(Month/Year) TONSILLECTOMY,OVER 12 YRS 1958 APPENDECTOMY 1960 D&C (multiple) HYSTERECTOMY TOTAL 1996 [...]
[2024-10-01 11:15] VITALS: BP 174/84; PULSE 79; TEMP 36.3; O2SAT 97
[2024-10-01 11:57] VITALS: BP 198/88; PULSE 84; O2SAT 99
[2024-10-01 11:58] VITALS: BP 199/84; PULSE 84; O2SAT 99
[2024-10-01] MEDS: IOHEXOL 240 MG/ML - 10 ML VIAL 12 MG INJ (12:01)
[2024-10-01] MEDS: BUPIVACAINE HCL 0.25% PF 25 MG/10 ML VIAL INJ (12:01)
[2024-10-01] MEDS: 0.9 % SODIUM CHLORIDE 10 ML SYRINGE - SALINE FLUSH INJ (12:01)
[2024-10-01] MEDS: LIDOCAINE HCL 2% 400 MG/20 ML MDV 3 ML INJ (12:02)
[2024-10-01] MEDS: METHYLPREDNISOLONE ACETATE 80 MG/ML VIAL INJ (12:02)
--- NOTE | 2024-10-01 12:03 | P.ON_ITS ---
Date of procedure: 10/01/24 Pre-op diagnosis: Pain due to lumbar stenosis with neurogenic claudication Post-op diagnosis: same as pre-op Procedure: Procedure: Left L4-5, L5-S1 transforaminal epidural steroid injection Medications: Bupivacaine 0.25% 2cc, lidocaine 2% 1cc, depomedrol 80mg The patient was seen and examined in the preoperative holding area.? Informed consent was obtained and placed on the chart.? Patient was brought to the medical procedure unit and placed in the prone position where a timeout was completed verifying the correct patient, procedure site, position, and planned special equipment using sterile aseptic technique.? Under direct fluoroscopic visualization a 25-gauge Quincke tipped spinal needle was advanced to the designated neural foramen where contrast dye was injected to show adequate spread.? The needle was inserted at level left L4-5. There was no evidence of vascular or adverse uptake.? Epidural spread was appreciated.? The above- mentioned injectate was then placed in a 1.5 mL aliquot preceded by negative aspiration.? The needle was removed. The needle was inserted and the procedure repeated at level left L5-S1.? The surgery site was covered.? Patient was taken to the postprocedural recovery area and monitored for an appropriate length of time before found suitable for discharge in the accompaniment of a responsible adult. Anesthesia: Local Surgeon: Lyn Quiñones Pathology: none sent Condition: stable Disposition: no change
== END 2024-10-01 12:10 | disposition home or self-care (01) ==
LOC: SURGOUT 11:02
PROVIDERS: PCP Family Medicine; Visit Provider Anesthesiology
DX: M48.062 Spinal stenosis, lumbar region with neurogenic claudication (principal); M54.50 Low back pain, unspecified
CPT/HCPCS: 64483; 64484; J0665; J1010; Q9966

== ENCOUNTER 2024-10-11 14:04 | Outpatient (OUT) | payer MEDICARE, SELFPAY ==
--- NOTE | 2024-10-11 14:36 | PM.CN ---
Consult Note: HPI Data of Consult Patient: known to practice within the last 3 years Requesting Physician: Vivian Meza NP Primary Care Provider: Luis Rogers MD Consult Narrative Reason for consult: f/u Narrative: Alexa Delgado a pleasant 84 year old female presents for evaluation and management of chronic low back and bilateral SIJ pain. Patient rating pain 0/10 today, notes increased pain in the evenings and with overactivity. pain improved with lying down, heat, and medications. Patient has found significant improvement in pain and functional ability with past procedures and current medication regimen. currently taking gabapentin 100mg BID, norco 5-32m5 BID-TID PRN, flexeril 5mg bid, tylenol prn. recently underwent left L4-5 L%-S1 TFESI with significant ongoing relief. cc:: CC: Vivian Meza NP Review of Systems ROS Musculoskeletal Reports: back pain, neck pain, extremity pain and joint pain PFSH PFSH Medical History Chest pain, rule out acute myocardial infarction ?R07.9 - Chest pain, unspecified (ICD-10) CAD (coronary artery disease) ?I25.10 - Atherosclerotic heart disease of lummi coronary artery without angina pectoris (ICD-10) Hypothyroid ?E03.9 - Hypothyroidism, unspecified (ICD-10) Hypertension ?I10 - Essential (primary) hypertension (ICD-10) Pelvic fracture ?S32.9XXA - Fracture of unspecified parts of lumbosacral spine and pelvis, initial encounter for closed fracture (ICD-10) TIA (transient ischemic attack) ?G45.9 - Transient cerebral ischemic attack, unspecified (ICD-10) Closed fracture of coccyx ?S32.2XXA - Fracture of coccyx, initial encounter for closed fracture (ICD-10) Osteoarthritis ?M19.90 - Unspecified osteoarthritis, unspecified site (ICD-10) H/O pyelonephritis ?Z87.448 - Personal history of other diseases of urinary system (ICD-10) Syncope ?R55 - Syncope and collapse (ICD-10) Generalized weakness ?R53.1 - Weakness (ICD-10) Dizziness ?R42 - Dizziness and giddiness (ICD-10) Surgical History Pain management ?R52 - Pain, unspecified (ICD-10) H/O bladder repair surgery ?Z98.890 - Other specified postprocedural states (ICD-10) H/O breast surgery ?Z98.890 - Other specified postprocedural states (ICD-10) H/O knee surgery ?Z98.890 - Other specified postprocedural states (ICD-10) H/O foot surgery ?Z98.890 - Other specified postprocedural states (ICD-10) History of right knee joint replacement ?Z96.651 - Presence of right artificial knee joint (ICD-10) History of YAG laser capsulotomy of lens ?Z98.49 - Cataract extraction status, unspecified eye (ICD-10) Hx laparoscopic cholecystectomy ?Z90.49 - Acquired absence of other specified parts of digestive tract (ICD-10) H/O: hysterectomy ?Z90.710 - Acquired absence of both cervix and uterus (ICD-10) History of arthroscopic knee surgery ?Z98.890 - Other specified postprocedural states (ICD-10) H/O discectomy ?Z98.890 - Other specified postprocedural states (ICD-10) H/O dilation and curettage ?Z98.890 - Other specified postprocedural states (ICD-10) History of appendectomy ?Z90.49 - Acquired absence of other specified parts of digestive tract (ICD-10) Hx of tonsillectomy ?Z90.89 - Acquired absence of other organs (ICD-10) Family History Other Family history of CHF (congestive heart failure) Social History Within the past year, how often did you have a drink containing alcohol: never Score interpretation: A score less than 3 is consistent with normal alcohol consumption. Smoking status: Never smoker Non-prescribed substance use: denies use Previous occupational history: Retired, , lives at home Highest level of school completed/degree received: high school graduate Are you now , , , , never or living with a partner: In a typical week, how many times do you talk on the telephone with family, friends, or neighbors: once per week How often do you get together with friends or relatives: once per week How often do you attend mormonism or episcopalian services: 1-3 times per year Little interest or pleasure in doing things: not at all Feeling down, depressed, or hopeless: not at all Feel stressed/tense/nervous/anxious/difficulty sleeping: not at all Gender Identity: female Meds Home Medications and Allergies Home Medications ?Medication ?Instructions ?Recorded ?Confirmed ?Type capsaicin 0.025 % topical patch 1 patch topical DAILY pain 07/26/22 10/01/24 History ([facility]onpas-Hot) citalopram 10 mg tablet 10 mg PO DAILY 07/26/22 10/01/24 History fexofenadine 180 mg tablet 180 mg PO DAILY 07/26/22 10/01/24 History (Benita Allergy) flaxseed oil 1,000 mg capsule 1,000 mg PO DAILY 07/26/22 10/01/24 History glucosamine 750 gx-hldtkn-gqp 2-C 1 tab PO DAILY 07/26/22 10/01/24 History 30 mg-D3 1,000 unit-maida 1 mg tablet (Akobdfxqcni-Cyzdbesvcya-QTR + vitD) isosorbide mononitrate 30 mg 30 mg PO DAILY 07/26/22 10/01/24 History tablet,extended release 24 hr liothyronine 25 mcg tablet 25 mcg PO DAILY 07/26/22 10/01/24 History (Cytomel) melatonin 3 mg capsule 3 mg PO DAILY 07/26/22 10/01/24 History metoprolol succinate 50 mg 50 mg PO BID 07/26/22 10/01/24 History tablet,extended release 24 hr multivitamin 1 tab PO DAILY 07/26/22 10/01/24 History nitroglycerin 0.4 mg sublingual 0.4 mg sublingual Q5M PRN chest 07/26/22 10/01/24 History tablet pain cyclobenzaprine 10 mg tablet 10 mg PO BEDTIME 04/20/23 10/01/24 History ferrous sulfate 325 mg (65 mg 325 mg PO BID 09/02/23 10/01/24 History iron) tablet diclofenac sodium 75 mg 75 mg PO BID 10/13/23 10/01/24 History tablet,delayed release levothyroxine 75 mcg tablet 75 mcg PO QAM 10/13/23 10/01/24 History pantoprazole 40 mg tablet,delayed 40 mg PO DAILY #30 tabs 10/13/23 10/01/24 Rx release (Protonix) calcium 600 mg (as carbonate)-vit 1 tab PO BID 11/04/23 07/23/24 History D3 20 mcg (800 unit) chewable tablet (Caltrate plus D) hydrocodone 5 mg-acetaminophen 325 1 tab PO TID PRN pain #90 tabs 01/05/24 10/01/24 Rx mg tablet gabapentin 100 mg capsule 100 mg PO BID #60 caps 09/19/24 10/01/24 Rx Allergies Allergy/AdvReac Type Severity Reaction Status Date / Time Penicillins Allergy Severe Hives Verified 10/01/24 11:21 codeine AdvReac Intermediate Dizziness Verified 10/01/24 11:21 fluconazole (From Diflucan) AdvReac Intermediate Hives Verified 10/01/24 11:21 quinine (From Quinamm) AdvReac Mild Headache Verified 10/01/24 11:21 pregabalin (From Lyrica) AdvReac Dizziness Verified 10/01/24 11:21 propoxyphene (From Darvon) AdvReac Headache Verified 10/01/24 11:21 decongest multi-action AdvReac Mild Headache Uncoded 10/01/24 11:21 Exam Constitutional Documenting provider has reviewed patient's vital signs: yes Common normals: no apparent distress, oriented x3, healthy appearing, alert and well nourished General appearance: cooperative [facility] Common normals: normocephalic, hearing grossly normal bilaterally and moist oral mucous membranes Head and scalp: normocephalic Eye Common normals: PERRL Pupil: PERRL Neck & C-Spine Common normals: full ROM General: normal visual inspection Cervical spine: cervical ROM abnormal and pain with cervical ROM; no cervical spine tenderness Other: negative spurlings decreased sensation left C5,6,7 strength 4/5 in LUE and 5/5 in RUE Chest Common normals: inspection of chest normal Respiratory Common normals: normal respiratory effort, no retractions and no use of accessory muscles Back & Pelvis Lumbar spine/lower back: ROM limited and straight leg raise negative bilaterally; no pain with ROM Sacroiliac joints: SI joints normal Other: bilateral SIJ negative marge(patricks), gaenslens, thigh thrust, compression test Extremity Common normals: normal to inspection Right upper extremity: hand and digits Left upper extremity: hand and digits Right lower extremity: hip joint Left lower extremity: knee joint Left knee: palpation (moderate to severe pain ), ROM (limited, crepitus noted. pain with medial/lateral stress testing) and other Other: no pain with internal and external rotation of right hip intermittent locking up of bilateral thumbs, notable joint deformation with enlarged joints Neuro Common normals: oriented x3, CN's II-XII intact bilaterally, moves all extremities, no focal motor deficits, no sensory deficits noted and deep tendon reflexes 2+ bilaterally Sensorium/orientation: alert Gait (neuro): antalgic and assistive device used walker Motor exam: no movement abnormalities noted and strength abnormal Psych Common normals: mental status grossly normal, thought process normal, cooperative, affect normal, speech normal and activity/motor behavior normal Speech: normal speech Thought process: normal thought process Results Additional Findings Additional findings: If on a controlled substance or opioids, I have checked an [place] report on this patient and there are no aberrancies noted in the prescribing history.??If on a controlled substance or opioid a drug screen was completed and reviewed within the last year, and if there has not been a drug screen completed we ordered one today to monitor higher risk, state monitored pain medication use. As part of providing excellent, safe, comprehensive care, the following was completed at our patient's visit: 1. A medication reconciliation and review to ensure accurate knowledge of current/active medications, including asking our patients to inform us about any kkdt-wxg-viyfmrg medications or herbal remedies/nutritional supplements/alternative remedies. 2. A review to specifically ensure our patients have had annual screening for screening for depression, screening for tobacco use, and screening for unhealthy alcohol use. For concerning screenings had a discussion with the patient, provided patient education, and recommended follow-up with primary care provider when appropriate. If patient noted with a risk of falling, they received education on strength, gait, and balance training to prevent future risk of falling. Portions of this note may have been carried over from the previous visit and updated as appropriate. Please note this office utilizes paper charting in addition to the electronic medical record. A list of current medications, vitals, and PMH is available there as the clinical staff outside of myself do not have access to [employer] charting during the clinic day operations. As part of providing quality comprehensive care the current medications, vitals, and PMH were reviewed in the paper chart. Assessment and Plan Assessment and Plan (1) Lumbar stenosis with neurogenic claudication: Assessment and Plan: 10-01-24 left L4-5 L5-S1 TFESI >70% improvement in pain and functional ability per pt (2) Sacroiliitis: (3) Chronic, continuous use of opioids: Assessment and Plan: I feel these medications are improving the patient's quality of life and allow them to tolerate activities of daily living as well as participate in recreational activity.? The patient does not report intolerable side effects. The patient is NOT opioid naive and non-pharmacologic and non-opioid treatment has failed to significantly relieve the patient's pain and improve functionality. The patient has a diagnosis that is related to a somatic or visceral pain etiology. ? ?? I reviewed with the patient the potential risks and side effects with the use of? opioid medications including but not limited to respiratory depression,? sedation, and even . I verified the patient has access to naloxone should? these effects occur. I advised the patient to avoid the use of any other? sedation substances including alcohol, THC, and benzodiazepines while? taking opioid medications due to the risk of compounding side effects and? detrimental outcomes. I reviewed the [employer], pain treatment agreement, urine? drug screen, and opioid start talking forms. The patient was advised to let? their family know they had Naloxone in case they would need to administer? the medication.? ?? A drug screen was completed within the last year, and no aberrancies were noted regarding their use of controlled substances. The patient understands they are subject to the terms and conditions of the pain contract that they have signed. ? ?? I have checked an [place]AR[place] report on this patient today and there are no aberrancies noted in the prescribing history.? (4) Lumbar degenerative disc disease: (5) Degenerative disc disease, cervical: (6) Cervical radiculopathy: (7) Left knee pain: (8) Myalgia, other site: (9) Bilateral thumb pain: Plan continue current medications, risks vs benefits reviewed continue HEP and aquatherapy as tolerated f/u 3 months, sooner if needed
== END 2024-10-11 14:05 | disposition home or self-care (01) ==
LOC: PM 14:04
PROVIDERS: PCP Family Medicine; Visit Provider Nurse Practitioner
DX: M48.062 Spinal stenosis, lumbar region with neurogenic claudication (principal); M46.1 Sacroiliitis, not elsewhere classified; Z79.891 Long term (current) use of opiate analgesic; M51.369 Other intervertebral disc degeneration, lumbar region without mention of lumbar back pain or lower extremity pain; M50.30 Other cervical disc degeneration, unspecified cervical region; M54.12 Radiculopathy, cervical region; M25.562 Pain in left knee; M79.18 Myalgia, other site; M79.645 Pain in left finger(s); M79.644 Pain in right finger(s)
CPT/HCPCS: G0463

== ENCOUNTER 2024-12-03 14:19 | Outpatient (OUT) | payer MEDICARE, SELFPAY ==
--- OUTSIDE RECORDS SUMMARY | 2024-12-03 14:26 | XMS_ITS | CCD ---
Author Organization [facility] Care Team Providers Care Operations Superintendent Name Role Phone PHYSICIAN, DEFAULT Unavailable Unavailable PHYSICIAN, DEFAULT Unavailable Unavailable Haley Bright DO, George Cajetan Unavailable Galina Rogers MD Primary Care Provider Lakshmipathy, Narendranath Unavailable Haley Bright DO, George Cajetan Unavailable ESTELA ., DR [...] ., NARDALLASATH Admitting Laura vailable LAKSHMIPATHY ., NARENDRANATH Attending [...] DR MOJICA Primary Care Unavailable LAKSHMIPATHY ., NARROSA Consulting Laura vailable LAKSHMIPATHY ., NARENDLAYATH Admitting Laura vailable LAKSHMIPATHY ., NARENDLAYATH Attending [...] Unavailable DORY, DR KRANTHI Gaona Consulting Unavailable PRADEEPY ., DR MOJICA Primary Care Unavailable MELO [...] Admitting Unavailable FAWCHANELL, SEGURA H Attending Unavailable ESTELA ., DR MOJICA [...] Unavailable HOY ., DR MOJICA Consulting Unavailable AUBURN, DR HERMES Jean Baptiste Consulting Unavailable LATANYA [...] Unavailvanda DE LEON JR., GEORGE C Referring UnavailARMANDO Trinh Attending Unavailable Galina Rogers MD Primary Care Provider [phone] Galina Rogers MD Attending Provider Ishmael MEANS, Lyn Adams Attending Unavailable Ishmael MEANS, Andrius Adams Attending Unavailable Ishmael MEANS, Andrius Adams Attending Unavailable Ishmael MEANS, Andrius Adams Attending Unavailable Ishmael MEANS, Lyn Adams Attending Unavailable Ishmael MEANS, Lyn Adams Attending Unavailable Galina Rogers Primary Care Physician [phone] Galina Rogers Attending Unavailable Galina Rogers Admitting Unavailable NO FAMILY, PHYSICIAN Primary Care Unavailable Jacinta Long Attending Unavailable Sharon Calix Attending Unavailable Sharon Calix Attending Unavailable Sharon Calix Admitting Unavailable Jacinta Long Attending Unavailable Sharon Calix Attending Unavailable Sharon Calix Admitting Unavailable Allergies Allergy Classification Reported Allergen(s) Allergy Type Date of Onset Reaction(s) Facility (9 sources) Codeine; Translations: [CODEINE] Drug Allergy 09-14-19 13 Unknown, Unknown (qualifier value) [facility] (4 sources) Penicillins; Translations: [PENICILLINS] Drug Allergy 09-14-19 13 Unknown [facility] (6 sources) pregabalin; Translations: [PREGABALIN] Drug Allergy 05-15-19 23 Intolerance, Unknown (qualifier value) [facility] Work Phone: (7 sources) Propoxyphene; Translations: [PROPOXYPHENE] Drug Allergy 05-15-19 23 Rash, Unknown, GI intolerance, Headache, Unknown (qualifier value) [facility] (4 sources) quiNINE; Translations: [QUINAMM] Drug Allergy 05-15-19 23 GI Upset [facility] (5 sources) Decongest Multi-Action; Translations: [Decongest Multi-Action] Drug Allergy 05-15-19 23 Other: See Comments [facility] (1 source) Acetaminophen / HYDROcodone Drug Allergy [facility] (2 sources) Codeine Drug Allergy 09-14-19 13 [facility] (3 sources) Fluconazole; Translations: [Diflucan] Drug Allergy [facility] (2 sources) Penicillins Drug allergy (disorder) 09-14-19 13 [facility] (3 sources) pregabalin; Translations: [Lyrica] Drug Allergy [facility] (4 sources) Propoxyphene; Translations: [Darvon] Drug Allergy [facility] (1 source) quiNINE Drug Allergy [facility] (1 source) Fluconazole Allergy to substance 12-06-19 Unknown [facility] (1 source) Penicillins Propensity to adverse reactions 08-03-[address] [facility] (1 source) Pregabalin Propensity to adverse reactions 08-03-[address] [facility] (1 source) Pseudoephedrine Drug Allergy 08-03-19 [facility] (5 sources) quiNINE; Translations: [quinine] Drug Allergy 08-03-19 GI intolerance, Headache, Dizziness, Unknown (qualifier value) [facility] (2 sources) Fluconazole; Translations: [fluconazole] Drug Allergy Unknown (qualifier value) [facility] (4 sources) Penicillin; Translations: [penicillin] Drug Allergy Unknown (qualifier value) [facility] Medications Current Medications Medication Drug Class(es) Dates Sig (Normalized) Sig (Original) Tylenol (6 sources) Start: 10-10-2024 Tylenol Oral, Refills(s) 0 Start Date: 10/10/24 Status: Ordered Repeat number: 1 acetaminophen (T ylenol) 500 MG tablet Take by mouth. Active Comment on above: Take 500 mg by mouth twice daily. acetaminophen 325 mg / HYDROcodone bitartrate 5 mg oral tablet (6 sources) Opioid Agonist Start: 10-10-2024 take 1 tablet by mouth every six hours Selma 325 mg-5 mg oral tablet tab(s), Oral, q6hr, Refill(s) 0 Start Date: 10/10/24 Status: Ordered Repeat number: 1 Start: 04-29-2022 take 1 tablet by juan th twice daily as needed HYDROcodone-acetaminophen (Selma) 5-325 MG tablet 1 tablet as needed Orally twice daily 04/29/2022 Active Comment on above: Take 1 tablet by juan th twice daily as needed. Benita 24 Hour (2 sources) Start: 10-10-2024 Benita 24 Hour Refills(s) 0 Start Date: 10/10/24 Status: Ordered Repeat number: 1 Aspir 81 (2 sources) Start: 10-10-2024 take 1 mg by mouth once daily Aspir 81 mg, Oral, Daily, Refills(s) 0 Start Date: 10/10/24 Status: Ordered Repeat number: 1 aspirin 81 mg delayed release oral tablet (4 sources) Platelet Aggregation Inhibitor, Nonsteroidal Anti-inflammatory Drug take 1 tablet by mouth in the morning aspirin 81 MG EC tablet Take 81 mg by mouth in the morning. Active Comment on above: Take 81 mg by mouth once daily. Caltrate (4 sources) Start: 10-10-2024 take 1 mg by mouth once daily Caltrate mg, Oral, Daily, Refills(s) 0 Start Date: 10/10/24 Status: Ordered Repeat number: 1 Start: 10-10-2024 Caltrate 600 + D Oral, BID, Refill(s) 0 Start Date: 10/10/24 Status: Ordered Repeat number: 1 Calcium Carbonate / Vitamin D (1 source) Calcium Carbonat e-Vitamin D (CALTRATE 600+D PO) Take by mouth twice a day. Active Sncmztx-Vgkmjpq-Lsb hyl Edwar (SALONPAS TD) (1 source) Camphor-Menthol- Methyl Edwar (SALONPAS TD) Place on the skin Active citalopram 10 mg oral tablet (6 sources) Serotonin Reuptake Inhibitor Start: take 1 mg by mouth once daily citalopram 10 mg Tab mg tab(s), Oral, Daily, Refills(s) 0 Start Date: 10/10/24 Status: Ordered Repeat number: 1 Start: 03-01-2022 take 1 tablet by juan th once daily citalopram hydrobromide (CELEXA) 10 mg tablet Take 10 mg by mouth once daily. Treat Depression 0 03/01/2022 Active Comment on above: Take 10 mg by mouth once daily. Treat Depression cyclobenzaprine hydrochloride 5 mg oral tablet (6 sources) Muscle Relaxant Start: 10-11-19 take 1 mg by mouth three times daily cyclobenzaprine 5 mg Tab mg tab(s), Oral, TID, Refills(s) 0 Start Date: 10/10/24 Status: Ordered Repeat number: 1 cyclobenzaprine (Flexeril) 5 MG tablet Take 5 [...] sodium 75 mg delayed release oral tablet (6 sources) Nonsteroidal Anti-inflammatory Drug Start: 10-10-2024 take 1 mg by mouth twice daily diclofenac sodium 75 mg Oral EC Tab mg tab(s), Oral, BID, Refills(s) 0 Start Date: 10/10/24 Status: Ordered Repeat number: 1 Start: 03-24-2022 take 1 tablet by juan th twice daily for pain diclofenac, EC, (VOLTAREN) 75 mg EC tablet Take 75 mg by mouth twice daily. For Arthritis pain 0 03/24/2022 Active diclofenac (Volt aren) 75 MG EC tablet every 12 (twelve) hours. Active Comment on above: Take 75 mg by mouth twice daily. For Arthritis pain ferrous sulfate 325 mg delayed release oral tablet (3 sources) Start: 10-10-2024 take 1 mg by mouth once daily ferrous sulfate 325 mg oral enteric coated tablet mg tab(s), Oral, Daily, Refills(s) 0 Start Date: 10/10/24 Status: Ordered Repeat number: 1 Start: 09-16-2023 take 1 tablet by juan th in the morning ferrous sulfate 325 (65 Fe) MG tablet Take 1 tablet by mouth in the morning and 1 tablet before bedtime. 09/16/2023 Active fexofenadine hydrochloride 180 mg oral tablet (5 sources) Histamine-1 Receptor Antagonist End: 12-06-2023 fexofenadine (Benita Allergy) 180 MG tablet QAM 12/06/2023 Discontinued (Duplicate order) Comment on above: Take 180 mg by mouth once daily. flax oral capsule (2 sources) Start: 10-10-2024 flax oral capsule Refill(s) 0 Start Date: 10/10/24 Status: Ordered Repeat number: 1 gabapentin 100 mg oral capsule (2 sources) Anti-epileptic Agent Start: 10-10-2024 take 1 mg by mouth three times daily gabapentin 100 mg Cap mg cap(s), Oral, TID, Refills(s) 0 Start Date: 10/10/24 Status: Ordered Repeat number: 1 Glucosamine-Chondroi tin-MSM (Triple Flex) 500-400-125 MG tablet (1 source) take 1 tablet by mouth twice daily at mealtime Glucosamine-Chondr oitin-MSM (Triple Flex) 500-400-125 MG tablet 1 tablet with meals Orally twice daily for 30 days Active 24 hr isosorbide mononitrate 30 mg extended release oral tablet (6 sources) Nitrate Vasodilator Start: 10-10-2024 take 1 mg by mouth once daily in the morning isosorbide mononitrate 30 mg ER Tab mg tab(s), Oral, qAM, Refills(s) 0 Start Date: 10/10/24 Status: Ordered Repeat number: 1 Start: 03-21-2022 take 1 tablet by juan th in the morning, then take 1 tablet by mouth every twenty-four hours isosorbide mononitrate ER (Imdur) 30 MG 24 hr tablet Take 30 mg by mouth in the morning. 03/21/2022 Active Comment on above: Take 30 mg by mouth once daily. 1 tablet daily in the AM on an empty stomach Treat for Angina levothyroxine sodium 0.075 mg oral tablet (6 sources) l-Thyroxine Start: take 1 tablet by mouth once daily levothyroxine 75 mcg (0.075 mg) Tab mcg tab(s), Oral, Daily, Refills(s) 0 Start Date: 10/10/24 Status: Ordered Repeat number: 1 Start: 03-18-2022 levothyroxine (Synthroid, Levoxyl) 75 MCG tablet 1 (one) time each day at the same time. 03/18/2022 Active Comment on above: Take 75 mcg by mouth once daily. Patient takes 1 tablet in the AM linseed oil 1000 mg oral capsule (4 sources) Osiel, Abdullahi d, (Flax Seed Oil) 1000 MG capsule as directed Orally Active Comment on above: Take 1,000 mg by juan th once daily. liothyronine sodium 0.025 mg oral tablet (6 sources) l-Triiodothyronin e Start: 10-10-2024 take 1 tablet by mouth once daily liothyronine 25 mcg Tab 25 mcg = 1 tab(s), Oral, Daily, # 90 tab(s), Refills(s) 0 Start Date: 10/10/24 Status: Ordered Quantity: 90.0 Unit: tab(s) Repeat number: 1 liothyronine (Cy tomel) 25 MCG tablet 1 (one) time each day at the same time. Active Comment on above: Take 25 mcg by mouth once daily. Magnesium (1 source) MAGNESIUM PO Sung e by mouth + cheleated zinc Active magnesium amino acid chelate (5 sources) Start: 10-10-2024 magnesium amino acids chelate Oral, Refills(s) 0 Start Date: 10/10/24 Status: Ordered Repeat number: 1 take 250 mg by mouth once daily at bedtime MAGNESIUM AMINO ACID CHELATE ORAL Take 2 50 mg by mouth once daily. At bedtime 0 Active Comment on above: Take 250 mg by mouth once daily. At bedtime Melatonin (6 sources) Start: 10-10-2024 Melatonin Once a day (at bedtime), Refills(s) 0 Start Date: 10/10/24 Status: Ordered Repeat number: 1 melatonin 3 MG t ablet 1 (one) time each day at the same time. Active take 1 capsule by mo uth once daily at bedtime melatonin 3 mg capsules Take 3 mg by juan th daily at bedtime. 0 Active Comment on above: Take 3 mg by mouth d aily at bedtime. 24 hr metoprolol succinate 50 mg extended release oral tablet (6 sources) beta-Adrenergic Moshe Start: 10-10-2024 take 1 mg by mouth once daily metoprolol succinate 50 mg ER Tab mg tab(s), Oral, Daily, Refills(s) 0 Start Date: 10/10/24 Status: Ordered Repeat number: 1 Start: 03-24-2022 take 1 tablet by juan th twice daily metoprolol succinate ER (TOPROL XL) 50 mg 24 hr tablet Take 50 mg by mouth twice daily. 0 03/24/2022 Active Comment on above: Take 50 mg by mouth twice daily. 24 hr mirabegron 25 mg extended release oral tablet (1 source) beta3-Adrenergic Agonist Start: 11-15-19 End: 03-14-19 26 take 1 tablet by mouth once daily Myrbetriq 25 mg oral tablet, extended release 25 mg = 1 tab(s), Oral, Daily, X 30 day(s), # 30 tab(s), Refills(s) 3, Pharmacy: [facility]/pharmacy #[id number], 150, cm, 11/14/24 15:17:00 EDT, Height/Length Dosing, 79.9, kg, 11/14/24 15:17:00 EDT, Weight Dosing Start Date: 11/14/24 Stop Date: 03/14/25 Status: Ordered Quantity: 30.0 Unit: tab(s) Repeat number: 4 Indications: Overactive bladder; Multi Vitamin+ (2 sources) Start: 10-11-19 Multi Vitamin+ Refill(s) 0 Start Date: 10/10/24 Status: Ordered Repeat number: 1 Multiple Vitamin (multivitamin) tablet (1 source) take 1 tablet by mouth in the morning Multiple Vitamin (multivitamin) tablet Take 1 tablet by mouth in the morning. Active Nitroglycerin (6 sources) Nitrate Vasodilator Start: 10-11-19 nitroglycerin Refills(s) 0 Start Date: 10/10/24 Status: Ordered Repeat number: 1 nitroglycerin (N itrostat) 0.4 MG SL tablet as directed Sublingual [...] 3x daily As needed for chest pain Selden-3 1000 mg oral capsule (2 sources) Start: 5 Selden-3 1000 mg oral capsule mg cap(s), Oral, Refills(s) 0 Start Date: 10/10/24 Status: Ordered Repeat number: 1 Osteo Bi-Flex Triple Strength (2 sources) Start: 5 Osteo Bi-Flex Triple Strength Refill(s) 0 Start Date: 10/10/24 Status: Ordered Repeat number: 1 oxybutynin chloride 5 mg oral tablet (2 sources) Cholinergic Muscarinic Antagonist Start: 5 take 1 tablet by mouth once daily oxybutynin 5 mg Tab 5 mg = 1 tab(s), Oral, Daily, # 30 tab(s), Refills(s) 0, Pharmacy: [facility]/pharmacy #[id number], 150, cm, 10/10/24 10:18:00 EDT, Height/Length Dosing, 80, kg, 10/10/24 10:18:00 EDT, Weight Dosing Start Date: 10/10/24 Status: Ordered Quantity: 30.0 Unit: tab(s) Repeat number: 1 Indications: Overactive bladder; pantoprazole 40 mg delayed release oral tablet (3 sources) Proton Pump Inhibitor Start: take 1 mg by mouth once daily Pantoprazole [address] Tab mg tab(s), Oral, Daily, Refills(s) 0 Start Date: 10/10/24 Status: Ordered Repeat number: 1 Start: 10-13-2023 take 1 tablet by juan th once daily pantoprazole (ProtoNix) 40 MG EC tablet Take 40 mg by mouth Daily 10/13/2023 Active Potassium Chloride (2 sources) Start: 10-10-2024 potassium chlo ride Refills(s) 0 Start Date: 10/10/24 Status: Ordered Repeat number: 1 Salonpas Pain Patch (2 sources) Start: 10-10-2024 Salonpas Pain Patch Refill(s) 0 Start Date: 10/10/24 Status: Ordered Repeat number: 1 trolamine salicylate (1 source) Trolamine Salicy late (BLUE-EMU MAXIMUM PAIN RELIEF EX) Apply topically Active Zinc-Magnesium Aspart-Vit B6 (Zinc Magnesium Aspartate) 150-3.83-10 MG capsule (1 source) Zinc-Magnesium A spart-Vit B6 (Zinc Magnesium Aspartate) 150-3.83-10 MG capsule 1 (one) time each day at the same time. Active Completed/Discontinued Medications Medication Drug Class(es) Dates Sig (Normalized) Sig (Original) Calcium Carbonate / vitamin D3 (3 sources) calcium carbonate/vitamin D3 (CALTRATE 600 + D ORAL) Take by mouth twice daily. 0 Active Comment on above: Take by mouth twice daily. capsaicin 0.13438 mg/mg medicated patch (3 sources) Capsaicin (SALONPAS-HOT) 0.025 % ptmd Apply to affected area. 0 Active Comment on above: Apply to affected ar ea. glucosamine HCl/S-Adenosylmet (TRIPLE FLEX MOOD & JOINT [...] Take 25 mg by mouth once daily. MULTIVITAMIN ORAL (3 sources) MULTIVITAMIN ORA L Take by mouth. Equate with Lycopene Complete Multivitamin 0 Active Comment on above: Take by mouth. Equat e with Lycopene Complete Multivitamin Problems Active Problems Problem Classification Problem Date Documented Date Episodic/Chronic Anxiety disorders (2 sources) Mixed anxiety and depressive disorder 10-10-2024 Chronic Blindness and vision defects (1 source) Unspecified visual loss; Translations: [UNSPECIFIED VISUAL LOSS] Onset: 04-06-2022 Chronic Cardiac dysrhythmias (2 sources) Supraventricular tachycardia 10-10-2024 Chronic Congestive heart failure; nonhypertensive (5 sources) Unspecified diastolic (congestive) heart failure; Translations: [Congestive heart failure] Onset: 12-16-2021 10-05-2024 Chronic Coronary atherosclerosis and other heart disease (4 sources) Coronary arteriosclerosis 10-05-2024 Chronic Deficiency and other anemia (2 sources) Anemia, unspecified; Translations: [ANEMIA UNSPECIFIED] Onset: 12-16-2021 Episodic Delirium, dementia, and amnestic and other cognitive disorders (4 sources) Dementia 10-05-2024 Chronic Diseases of white blood cells (4 sources) Monocytosis 10-05-2024 Chronic Disorders of lipid metabolism (7 sources) Hyperlipidemia, unspecified; Translations: [Hyperlipidemia] Onset: 12-16-2021 10-05-2024 Chronic Essential hypertension (8 sources) Essential (primary) hypertension; Translations: [Essential hypertension] Onset: 09-12-2012 12-06-2023 Chronic Fluid and electrolyte disorders (10 sources) Dehydration; Translations: [Hypo-osmolality and hyponatremia] Onset: 11-15-2021 Episodic Genitourinary symptoms and ill-defined conditions (4 sources) Stress incontinence (female) (male); Translations: [Female stress incontinence] Onset: 10-10-2024 Chronic Genitourinary symptoms and ill-defined conditions (12 sources) Dysuria; Translations: [Other abnormal findings in urine] Onset: 11-19-2021 Episodic Hypertension with complications and secondary hypertension (4 sources) Hypertensive heart disease with heart failure; Translations: [HTN HEART DISEASE W/HEART FAIL] Onset: 12-11-2021 Chronic Nonmalignant breast conditions (1 source) Fibrocystic disease of breast; Translations: [Diffuse cystic mastopathy of unspecified breast] Onset: 12-06-2023 12-06-2023 Chronic Nonspecific chest pain (3 sources) Chest pain, unspecified; Translations: [Chest pain] Onset: 11-13-2021 10-10-2024 Episodic Nutritional deficiencies (1 source) Vitamin D deficiency, unspecified; Translations: [VITAMIN D DEFICIENCY UNSPECIFIED] Onset: 12-16-2021 Chronic Open wounds of extremities (2 sources) Laceration of upper arm 10-10-2024 Episodic Osteoarthritis (8 sources) Bilateral primary osteoarthritis of hip; Translations: [Unspecified osteoarthritis, unspecified site] Onset: 09-12-2012 12-06-2023 Chronic Osteoporosis (2 sources) Senile osteoporosis 10-10-2024 Chronic Other acquired deformities (4 sources) Scoliosis of lumbar spine; Translations: [Scoliosis, unspecified] Onset: 04-11-2022 Chronic Other acquired deformities (5 sources) Scoliosis deformity of spine; Translations: [Scoliosis, unspecified] Onset: 04-11-2022 05-14-2022 Chronic Other acquired deformities (1 source) Scoliosis, unspecified; Translations: [SCOLIOSIS UNSPECIFIED] Onset: 04-11-2022 Chronic Other acquired deformities (1 source) Lumbar spondylolisthesis; Translations: [Spondylolisthesis, lumbar region] Episodic Other bone disease and musculoskeletal deformities (1 source) Idiopathic scoliosis of lumbar spine; Translations: [Other idiopathic scoliosis, lumbar region] Chronic Other circulatory disease (2 sources) Easy bruising 10-10-2024 Episodic Other connective tissue disease (1 source) Presence of right artificial knee joint; Translations: [PRESENCE RT ARTIFICIAL KNEE JOINT] Onset: 04-06-2022 Chronic Other connective tissue disease (5 sources) Other muscle spasm; Translations: [OTHER MUSCLE SPASM] Onset: 01-28-2022 Episodic Other diseases of bladder and urethra (2 sources) Detrusor overactivity; Translations: [Overactive bladder] Onset: 10-10-2024 Chronic Other diseases of bladder and urethra (2 sources) Overactive bladder 10-10-2024 Chronic Other diseases of veins and lymphatics (2 sources) Stasis dermatitis 10-10-2024 Episodic Other ear and sense organ disorders (2 sources) Otitis externa 10-10-2024 Chronic Other nervous system disorders (4 sources) Other specified mononeuropathies of right lower limb; Translations: [OTH SPEC MONONEUROPATH RT LOW LIMB] Onset: 06-22-2022 Chronic Other nervous system disorders (4 sources) Other specified mononeuropathies; Translations: [OTHER SPECIFIED MONONEUROPATHIES] Onset: 06-15-2022 Chronic Other nervous system disorders (1 source) Other chronic pain; Translations: [OTHER CHRONIC PAIN] Onset: 05-16-2022 Chronic Other non-traumatic joint disorders (2 sources) Allergic arthritis of the shoulder region 10-10-2024 Chronic Other non-traumatic joint disorders (2 sources) Bilateral arthritis of knees 10-10-2024 Chronic Other non-traumatic joint disorders (5 sources) Pain in right hip; Translations: [PAIN IN RIGHT HIP] Onset: 05-13-2022 Episodic Other nutritional; endocrine; and metabolic disorders (4 sources) Obese class I; Translations: [Obesity, unspecified] Onset: 09-21-2022 09-21-2022 Chronic Other nutritional; endocrine; and metabolic disorders (2 sources) Body mass index 30+ - obesity 10-10-2024 Chronic Other nutritional; endocrine; and metabolic disorders (2 sources) Obesity 10-10-2024 Chronic Other screening for suspected conditions (not mental disorders or infectious disease) (6 sources) Encounter for screening mammogram for malignant neoplasm of breast; Translations: [Patient encounter status] Onset: 11-25-2021 Episodic Other upper respiratory disease (2 sources) Allergic rhinitis 10-10-2024 Chronic Other upper respiratory disease (2 sources) Seasonal allergic rhinitis 10-10-2024 Chronic Pulmonary heart disease (2 sources) Secondary pulmonary hypertension 10-10-2024 Chronic Residual codes; unclassified (2 sources) Obstructive sleep apnea syndrome 10-10-2024 Chronic Residual codes; unclassified (2 sources) Sleep apnea 10-10-2024 Chronic Residual codes; unclassified (2 sources) Amnesia 10-10-2024 Episodic Residual codes; unclassified (2 sources) Clouded consciousness 10-10-2024 Episodic Residual codes; unclassified (2 sources) Edema 10-10-2024 Episodic Residual codes; unclassified (4 sources) Poor short-term memory 10-05-2024 Episodic Respiratory failure; insufficiency; arrest (adult) (2 sources) Chronic respiratory failure 10-10-2024 Chronic Spondylosis; intervertebral disc disorders; other back problems (20 sources) Lumbar spondylosis; Translations: [Spondylosis without myelopathy or radiculopathy, lumbar region] Onset: 10-02-2021 Chronic Spondylosis; intervertebral disc disorders; other back problems (18 sources) Chronic low back pain; Translations: [Lumbago with sciatica, right side] Onset: 10-02-2021 Episodic Thyroid disorders (13 sources) Hypothyroidism, unspecified; Translations: [Thyrotoxicosis, unspecified without thyrotoxic crisis or storm] Onset: 12-16-2021 10-10-2024 Chronic Transient cerebral ischemia (2 sources) Transient cerebral ischemia 10-10-2024 Chronic Unclassified (4 sources) LOW BACK PAIN, UNSPECIFIED; Translations: [LOW BACK PAIN, UNSPECIFIED] Onset: 04-06-2022 Unclassified (1 source) PERSONAL HISTORY OF COVID-19; Translations: [PERSONAL HISTORY OF COVID-19] Onset: 11-19-2021 Unclassified (1 source) CONTACT W/AND (SUSP) EXPOS COVID-19; Translations: [CONTACT W/AND (SUSP) EXPOS COVID-19] Onset: 09-14-2021 Unclassified (2 sources) Arthropathies and related disorders (navigational concept) 10-10-2024 Unclassified (2 sources) Asymptomatic microscopic hematuria 10-10-2024 Viral infection (1 source) COVID-19; Translations: [COVID-19] Onset: 11-13-2021 Past or Other Problems Problem Classification Problem Date Documented Da te Episodic/Chronic Conditions associated with dizziness or vertigo (4 sources) Dizziness and giddiness; Translations: [DIZZINESS AND GIDDINESS] Onset: 11-11-2021 Episodic Diabetes mellitus without complication (1 source) Other abnormal glucose; Translations: [OTHER ABNORMAL GLUCOSE] Onset: 12-16-2021 Episodic Malaise and fatigue (4 sources) Weakness; Translations: [WEAKNESS] Onset: 09-13-2021 Episodic Nausea and vomiting (1 source) Nausea with vomiting, unspecified; Translations: [NAUSEA WITH VOMITING UNSPECIFIED] Onset: 11-19-2021 Episodic Other aftercare (1 source) intermodal customer service (current) use of aspirin; Translations: [HOME APPLIANCES MECHANIC CURRENT USE OF ASPIRIN] Onset: 04-06-2022 Episodic Other aftercare (1 source) Other truck terminal manager (current) drug therapy; Translations: [OTH [facility]CI CURRENT [...] Test Name Value Interpretation Reference Range Facility Urology Office/Clinic Noteon 11-14-2024 Urology Office/Clinic Note Urology Office/Clinic Note Chief Complaint Pt here for follow up with PVR HPI Staff Pt is an 84 year old female here for a 1 month follow up with PVR Previous DX: OAB, incomplete bladder emptying, stress urinary incontinence and asymptomatic microscopic hematuria *oxybutynin 5mg qd started at last office visit Pt reports that when she voids it is a large volume of urine Pt complains of frequency, urgency and has urinary accidents Pt states that she does wear pads if she has to go out Pt denies pain/burning denies visible blood denies flank pain History of Present Illness I have reviewed and verified the staff HPI to be accurate for this encounter. Review of Systems PHQ Score Initial Depression Screen Score: 0 SCORE no fever, chills, malaise, myalgia. no abdominal pain, nausea, vomiting. Physical Exam Vitals & Measurements T: 36.9 ???C(Tympanic) HR: 70(Peripheral) RR: 16 BP: 138/86 HT: 59 in HT: 150 cm WT: 176.149 lb WT: 79.9 kg BMI: 35.51 General: Well developed, well nourished, in no acute distress. Assessment/Plan Alexa is a 84 yo F here for 1 month f/u for OAB Pt here with her . Early dementia *Of note, pt needs low exam table for PVRs 1. OAB (overactive bladder) (N32.81: Overactive bladder) Bladder suspension 1982. CT Pelvis wo con 07/23/24 [facility] - Bladder/ureter wnl. GEORGINA 09/24/24 [facility] - No renal mass, stones, or hydro. PVR 67 mL. Denies hx of UTIs. Neg ucx 09/21/24. BBS 21 (21) UA w/ small leuks and trace intact blood PVR 25 ml today (146 ml) Pt having symptoms included voiding frequently during the day and night. Normal outputs. Ongoing for a while. Denies ever trying meds. No hx of UR. reports pt struggling to make it to the bathroom at night, has bedside commode and wears c-pap. Urine appears very dark at night. Discussed pt is likely dehydrated. Wearing pad for protection for urge incontinence, does not typically have to change this. Occasional accidents/UUI. Denies any pelvic pressure secondary to hx of bladder suspension. NILESH minimal and not bothersome. Last visit, pt started on Oxybutynin 5 mg daily given risk of UR. Today, she shares she is taking Oxybutynin 5 mg qd. No bothersome SE to med. She does not notice much difference in urinary sx since taking Oxybutynin. Still going frequently, every 45 mins to 1 hours. Reviewed PVR w/ pt, emptying well. She denies sx of infection today. Discussed switching medication to Myrbetriq 25 mg daily. SE d/w pt. She is agreeable. All questions answered. -Stop Oxybutynin -Start Myrbetriq 25 mg daily. Rx sent. -If cost prohibitive, will send Gemtesa 75mg PO daily -Increase water intake during the day -Timed voids -Kegels, avoid bladder irritants -F/U 3 months w/ PVR, call sooner if needed Ordered: mirabegron, 25 mg = 1 tab(s), Oral, Daily, X 30 day(s), # 30 tab(s), Refills(s) 3, Pharmacy: [facility]/pharmacy #[id number], 150, cm, 11/14/24 15:17:00 EDT, Height/Length Dosing, 79.9, kg, 11/14/24 15:17:00 EDT, Weight Dosing 2. Incomplete bladder emptying (R33.9: Retention of urine, unspecified) PVR (cc): 10/10/24 - 146 11/14/24 - PVR improved. Pt reassured she is emptying better. -Cont sx monitoring Ordered: [id number] Measure Post Void residual urine and/or bladder capacity by US- non-imaging Body Mass Index (BMI) documented 3008F Current tobacco non-user 1036F Depression Screening Negative 3352F Influenza immunization status assessed 1030F Medication list documented in medical record 1159F Most recent diastolic blood pressure 80-89 mm Hg 3079F Patient screen for fall risk: no falls in last year or 1 fall with no injury in last year 1101F Review of all meds by a prescribing practitioner or clinical pharmacist documented in EHR 1160F Systolic BP 130-139 mm Hg (Most Recent) 3075F Urnls Dip Stick Auto w/o Microscopy POC 47465 3. NILESH (stress urinary incontinence, female) (N39.3: Stress incontinence (female) (male)) When coughing with full bladder. Not bothersome. -Kegels, education provided 4. Asymptomatic microscopic hematuria (R31.21: Asymptomatic microscopic hematuria) CT Pelvis wo con 07/23/24 [facility] - Bladder/ureter wnl. GEORGINA 09/24/24 [facility] - No renal mass, stones, or hydro. PVR 67 mL. UA last visit w/ small blood. Micro UA w/ trace, no RBC count provided. UA today w/ trace-intact blood. She denies gross hematuria. -Cont routine monitoring of UAs -Pt to notify our office for gross hematuria Follow-up With When Contact Information Jacinta Long PA-C, URL In 3 months Additional Instructions: w/ PVR Patient Education Overactive Bladder, Adult Problem List/Past Medical History Ongoing Acquired hypothyroidism Allergic arthritis of the shoulder region Allergic rhinitis Amnesia Arthritis Arthropathies and related disorders Asymptomatic microscopic hematuria Bilateral arthritis of knees Body mass index 30+ - obesity CAD (coronary artery disease) Cervical spondylosis Chest pain (more content not included)... Normal [facility] Comment on above: Result Comment: Elec tronically Signed By: Jacinta Long PA-C\.br\Date and Time Signed: 11/14/24 16:19 EDT Urinalysis with Microon - Color (U) Colorless Abnormal Yellow [facility] Comment on above: Result Comment: Micr oscopic readings are only performed on those samples that meet specific criteria set forth by [facility]. Performed By: #### 4 [id number] #### [facility] [address] [place] [address] Glucose (U) [Mass/Vol] Negative Normal Negative [facility] Comment on above: Performed By: #### 4 [id number] #### [facility] [address] [place] [address] Ketones Ql (U) Negative Normal Negative [facility] Comment on above: Performed By: #### 4 [id number] #### [facility] [address] [place] [address] UA Blood Trace Abnormal Negative [facility] Comment on above: Performed By: #### 4 [id number] #### [facility] [address] [place] [address] UA Clarity Clear Normal Clear [facility] Comment on above: Performed By: #### 4 [id number] #### [facility] [address] [place] [address] UA Leuk Est Negative Normal Negative [facility] Comment on above: Performed By: #### 4 [id number] #### [facility] [address] [place] [address] UA Nitrite Negative Normal Negative [facility] Comment on above: Performed By: #### 4 [id number] #### [facility] [address] [place] [address] UA pH 6.0 Invalid Interpretation Code 5.0-9.0 [facility] Comment on above: Performed By: #### 4 [id number] #### [facility] [address] [place] [address] UA Protein Negative Normal Negative [facility] Comment on above: Performed By: #### 4 [id number] #### [facility] [address] [place] [address] UA Spec Grav 1.006 Invalid Interpretation Code 1.005-1.030 [facility] Comment on above: Performed By: #### 4 [id number] #### [facility] [address] [place] [address] UA Urobilinogen Negative Normal Negative [facility] Comment on above: Performed By: #### 4 [id number] #### [facility] [address] [place] [address] Urobilinogen (U) [Mass/Vol] Negative Normal Negative [facility] Comment on above: Performed By: #### 4 [id number] #### [facility] [address] [place] [address] UA Spec Desc Clean Catch Normal [facility] Comment on above: Performed By: #### 4 [id number] #### [facility] [address] [place] [address] Urine Cultureon 09-21-2024 Bacteria identified Cx Nom (U) No Growth 2 Days PERFORMED BY: [place] [address] PATHOLOGIST DOOR CLOSER BRAULIO Harris [facility] Comment on above: Performed By: #### C UU #### [address] CNOVon 09-21-2022 CNOV Office Visit (NSADHC ) ALEXA DELGADO ([id number]) 1940 F Date Time Provider Department 09/21/22 1:00 PM CAROLYN VANEGAS [facility] During your visit today, we recorded the following information about you: Pulse Blood pressure 67/minute 153/60 Carolyn Vanegas MD 09/21/2022 1:20 PM Signed SPINE SURGERY OUTPATIENT CONSULT SERVICE DATE: 09/21/2022 PCP: Galina Rogers MD REFERRING PROVIDER: Glaina Rogers MD Consult requested for an opinion [...] Patient takes 1 tablet in the AM HYDROcodone-acetamino phen (NORCO) 5-325 mg per tablet Take 1 [...] Percentile 2 (more content not included)... Normal [facility] XR LSPINE 2_3 VIEWSon 2022 XR LSPINE 2_3 VIEWS EXAMINATION: XR LSPINE 2_3 VIEWS HISTORY: Lumbar spondylosis COMPARISON: No [...] Normal [facility] CNOVon 05-14-2022 OV Office Visit (SPMESH ) ALEXA DELGADO ([id number]) 1940 F Date Time Provider Department 05/14/22 2:30 PM MARTY DOZIER During your visit today, we recorded the following information about you: Pulse Blood pressure Weight Height 72/minute 158/87 76.4 kg 1.524 m Marty Dozier DO 05/15/2022 10:02 PM Signed [facility] - Medical Spine Initial Exam [...] Pain Level: 6 Pain Location: Back Description: Aching;Burning;Sharp; Shooting;Sore;Stabbin g;Throbbing;Tingling Duration Units: Months Frequency: Continuous Intervention/Comfort measure: Medication;Reposition ;Relaxation;Exercise; Heat;Pillow support;Positioning;S upport surface Comments: Spinal Injection, RF Ablation Pain Radiation: As above Aggravating Factors: Prolonged standing Transfers Turning/shifting in bed Alleviating Factors: Medications Pain Ratio: R>L low back Current Treatment: Medications Selma 5-325 mg BID - helps Diclofenac 75 [...] but still has pain -01/28/22 Noemi Sequeira FIRER MARINE: BL Lumbar erector spinae TPI (0.125% Marcaine, [...] ongoing as of 04/17/21 -03/08/21 Noemi Sequeira [employer]: Left rhomboid TPI (0.125% Marcaine, 40 mg Kenalog) -02/03/21 LESI - moderate relief for 4 days Prior spine surgery: -2006 L4-5 Discectomy Previously treated by: -[facility], previously Dr. Niko [...] has an evaluation at the [facility] tomorrow at the [facility]. RECOMMENDATIONS: We will see the pat (more content not included)... Normal [facility] CULTURE URINEon 04-05-2022 CULTURE URINE Culture Observations : LIGHT GROWTH OF MIXED GENITAL ALANIS. NO POTENTIAL PATHOGENS SEEN. Normal [facility] Comment on above: Performed By: #### U RCX ####[facility] [address] [place] [address]Dr. Grace Abdul UA RANDOM W/MICROSCOPICon BACTERIA NONE SEEN Normal NONE SEEN [facility] Comment on above: Performed By: #### U AMIC ####[facility] [address] [place], [place] [address]Dr. Grace Abdul Bilirubin Ql (U) Negative Normal NEGATIVE [facility] Comment on above: Performed By: #### U AMIC ####[facility] [address] [place], [place] [address]Dr. Grace Abdul CAST NONE SEEN Normal NONE SEEN [facility] Comment on above: Performed By: #### U AMIC ####[facility] [address] [place] [address]Dr. Grace Abdul Clarity (U) CLEAR Normal CLEAR [facility] Comment on above: Performed By: #### U AMIC ####[facility] [address] [place] [address]Dr. Grace Abdul Color (U) YELLOW Normal YELLOW [facility] Comment on above: Performed By: #### U AMIC ####[facility] [address] [place] [address]Dr. Grace Abdul Crystals LM Nom (Urine sed) NONE SEEN Normal NONE SEEN [facility] Comment on above: Performed By: #### U AMIC ####[facility] [address] [place] [address]Dr. Grace Abdul Epithelial cells LM Ql (Urine sed) RARE Normal NONE SEEN /RARE [facility] Comment on above: Performed By: #### U AMIC ####[facility] [address] [place] [address]Dr. Grace Abdul Glucose Ql (U) Negative Normal NEGATIVE [facility] Comment on above: Performed By: #### U AMIC ####[facility] [address] [place] [address]Dr. Grace Abdul Hemoglobin Ql (U) MODERATE Abnormal NEGATIVE [facility] Comment on above: Performed By: #### U AMIC ####[facility] [address] [place], [place] [address]Dr. Grace Abdul Ketones Ql (U) TRACE Abnormal NEGATIVE [facility] Comment on above: Performed By: #### U AMIC ####[facility] [address] [place], [place] [address]Dr. Grace Abdul LEUKOCYTES TRACE Abnormal NEGATIVE [facility] Comment on above: Performed By: #### U AMIC ####[facility] [address] [place], [place] [address]Dr. Grace Abdul MUCOUS NONE SEEN Normal NONE SEEN [facility] Comment on above: Performed By: #### U AMIC ####[facility] [address] [place] [address]Dr. Grace Abdul Nitrite Ql (U) Negative Normal NEGATIVE [facility] Comment on above: Performed By: #### U AMIC ####[facility] [address] [place] [address]Dr. Grace Abdul pH (U) 5.0 [pH] Normal 5-9 [facility] Comment on above: Performed By: #### U AMIC ####[facility] [address] [place], [place] [address]Dr. Grace Abdul RBC 0-2 Normal 0-2 [facility] Comment on above: Performed By: #### U AMIC ####[facility] L[address] [place], [place] [address]Dr. Grace Abdul SPEC GRAVITY 1.015 Normal 1.005-<=1.025 [facility] Comment on above: Performed By: #### U AMIC ####[facility] [address] [place] [address]Dr. Grace Abdul UA PROTEIN Negative Normal NEGATIVE/ TRACE [facility] Comment on above: Performed By: #### U AMIC ####[facility] [address] [place] [address]Dr. Grace Abdul Urobilinogen Qn (U) 0.2 {Ashley'U}/dL Normal 0.2 - 1. 0 [facility] Comment on above: Performed By: #### U AMIC ####[facility] [address] [place], [place] [address]Dr. Grace Franko WBC 0-2 Abnormal NONE SEEN [facility] Comment on above: Performed By: #### U AMIC ####[facility] [address] [place], [place] [address]Dr. Grace Abdul CBC AUTO DIFFon 04-04-2022 BASO # 0.0 103/ul Normal 0.0-0.1 [facility] Comment on above: Performed By: #### C BC ####[facility] [address] [place], [place] [address]Dr. Grace Franko Basophils/100 WBC (Bld) 0.4 % Normal 0.2-2.0 [facility] Comment on above: Performed By: #### C BC ####[facility] [address]xf[address] [place], [place] [address]Dr. Grace Franko EO # 0.1 103/ul Normal 0.0-0.7 [facility] Comment on above: Performed By: #### C BC ####[facility] [address] [place], [place] [address]Dr. Grace Franko Eosinophils/100 WBC (Bld) 1.3 % Normal 0.9-7.0 [facility] Comment on above: Performed By: #### C BC ####[facility] Avq[address]jwl[address] [place], [place] [address]Dr. Grace Abdul Erythrocyte distribution width (RBC) [Ratio] 13.7 % Normal 11.0-15.0 [facility] Comment on above: Performed By: #### C BC ####[facility] [address] [place] [address]Dr. Grace Abdul Hematocrit (Bld) [Volume fraction] 37.2 % Normal 36.0-48.0 [facility] Comment on above: Performed By: #### C BC ####[facility] [address] [place] [address]Dr. Grace Abdul Hemoglobin (Bld) [Mass/Vol] 12.4 g/dL Normal 12.0-16.0 [facility] Comment on above: Performed By: #### C BC ####[facility] [address] [place], [place] [address]Dr. Grace Abdul IG # 0.02 10e3/ul Normal 0.00-0.03 [facility] Comment on above: Performed By: #### C BC ####[facility] [address] [place], [place] [address]Dr. Grace Abdul IG % 0.4 % Normal 0.0-0.5 [facility] Comment on above: Performed By: #### C BC ####[facility] Yoww[address] [place], [place] [address]Dr. Grace Franko LYMPH # 0.8 103/ul Critically low 1.2-3.8 [facility] Comment on above: Performed By: #### C BC ####[facility] Z[address] [place], [place] [address]Dr. Grace Franko Lymphocytes/100 WBC (Bld) 13.9 % Critically low 20.5-60.0 [facility] Comment on above: Performed By: #### C BC ####[facility] [address] [place], [place] [address]Dr. Grace Franko MANUAL DIFF REQ NO Normal [facility] Comment on above: Performed By: #### C BC ####[facility] [address] [place], [place] [address]Dr. Grace Abdul MCH (RBC) [Entitic mass] 30.5 pg Normal 26.7-34.0 [facility] Comment on above: Performed By: #### C BC ####[facility] [address] [place] [address]Dr. Grace Abdul MCHC (RBC) [Mass/Vol] 33.3 g/dL Normal 29.9-35.2 [facility] Comment on above: Performed By: #### C BC ####[facility] [address] [place] [address]Dr. Grace Abdul MCV (RBC) [Entitic vol] 91.4 fL Normal 81.0-99.0 [facility] Comment on above: Performed By: #### C BC ####[facility] [address] [place], [place] [address]Dr. Grace Abdul MONO # 0.7 103/ul Normal 0.3-0.8 [facility] Comment on above: Performed By: #### C BC ####[facility] [address] [place], [place] [address]Dr. Grace Abdul Monocytes/100 WBC (Bld) 13.5 % Critically high 1.7-12.0 [facility] Comment on above: Performed By: #### C BC ####[facility] Eyzbucfect[address] [place], [place] [address]Dr. Grace Adbul NEUT # 3.8 103/ul Normal 1.4-6.5 [facility] Comment on above: Performed By: #### C BC ####[facility] [address]sw[address] [place], [place] [address]Dr. Grace Franko Neutrophils/100 WBC (Bld) 70.5 % Normal 43.0-75.0 [facility] Comment on above: Performed By: #### C BC ####[facility] [address] [place], [place] [address]Dr. Grace Abdul Platelet mean volume (Bld) [Entitic vol] 9.0 fL Critically low 9.5-13.5 [facility] Comment on above: Performed By: #### C BC ####[facility] [address] [place], [place] [address]Sd. Grace Abdul PLT 283 103/ul Normal 150-450 [facility] Comment on above: Performed By: #### C BC ####[facility] [address] [place], [place] [address]Gj. Grace Abdul RBC 4.07 106/ul Critically low 4.20-5.40 [facility] Comment on above: Performed By: #### C BC ####[facility] [address] [place], [place] [address]Kg. Grace Abdul WBC 5.4 103/ul Normal 4.0-11.0 [facility] Comment on above: Performed By: #### C BC ####[facility] [address] [place], [place] [address]E[address]. [address] ABD/PELV W CONon 04-04-19 [...] HISTORY: Right lower quadrant pain COMPARISON: 04/01/2017 _ FINDINGS: Lower chest: The lower lungs are [...] changes and scoliosis of the lumbar spine. ____ IMPRESSION: No acute abdominal pathology. No acute inflammatory process. No obstructing urinary tract stone. No evidence for bowel obstruction. Electronically authenticated by: EMILY NAVARRETE Date: 2022-04-04 16:59 Normal [facility] ER URINE PROFILEon 3 Bilirubin Ql (U) Negative Normal NEGATIVE [facility] Comment on above: Performed By: #### ROBERT FELDER ####[facility] Ms[address] [place], [place] [address]Dr. Grace Abdul Clarity (U) CLEAR Normal CLEAR [facility] Comment on above: Performed By: #### ROBERT FELDER ####[facility] [address] [place], [place] [address]Dr. Grace Abdul Color (U) LT. YELLOW Normal YELLOW [facility] Comment on above: Performed By: #### ROBERT FELDER ####[facility] [address] [place], [place] [address]Dr. Grace MCCARTNEYAHD A micrscopic examination will be performed if indicated. Normal [facility] Comment on above: Performed By: #### ROBERT FELDER ####[facility] [address] [place], [place] [address]Dr. Grace Abdul Glucose Ql (U) Negative Normal NEGATIVE [facility] Comment on above: Performed By: #### ROBERT FELDER ####[facility] [address] [place], [place] [address]Dr. Grace Abdul Hemoglobin Ql (U) SMALL Abnormal NEGATIVE [facility] Comment on above: Performed By: #### ROBERT FELDER ####[facility] [address]ctrphy[address] [place], [place] [address]Dr. Grace Abdul Ketones Ql (U) Negative Normal NEGATIVE [facility] Comment on above: Performed By: #### ROBERT FELDER ####[facility] [address] [place], [place] [address]Dr. Grace Abdul LEUKOCYTES TRACE Abnormal NEGATIVE [facility] Comment on above: Performed By: #### GODWIN FELDERICRO ####[facility] [address] [place] [address]Dr. Grace Abdul Nitrite Ql (U) Negative Normal NEGATIVE [facility] Comment on above: Performed By: #### Anthony ELLISON UMICRO ####[facility] [address] [place] [address]Dr. Grace Abdul pH (U) 7.5 [pH] Normal 5-9 [facility] Comment on above: Performed By: #### GODWIN FELDERICRO ####[facility] [address] [place] [address]DrLisette Abdul SPEC GRAVITY 1.005 Normal 1.005-<=1.025 [facility] Comment on above: Performed By: #### GODWIN FELDERICRO ####[facility] X[address] [place], [place] [address]Dr. rGace Abdul UA PROTEIN Negative Normal NEGATIVE/ TRACE [facility] Comment on above: Performed By: #### Anthony ELLISON ICRO ####[facility] [address] [place] [address]DrLisette Abdul UR MICRO IND INDICATED Normal [facility] Comment on above: Performed By: #### GINA FELDERRO ####[facility] [address] [place] [address]DrLisette Abdul Urobilinogen Qn (U) 0.2 {Ashley'U}/dL Normal 0.2 - 1. 0 [facility] Comment on above: Performed By: #### GODWIN FELDERICRO ####[facility] [address] [place] [address]DrLisette Abdul LIPASEon 04-04-2022 Lipase [Catalytic activity/Vol] 115.0 U/L Normal 73.0-393.0 [facility] Comment on above: Performed By: #### C VDTB #### [facility] [address] [place] [address] [address] Yilan Abdul PROF 14(COMP METB)on 023 Albumin [Mass/Vol] 3.6 g/dL Normal 3.4-5.0 [facility] Comment on above: Performed By: #### C VDTBH #### [facility] [address] [place] [address] [address] Grace Abdul Albumin/Globulin [Mass ratio] 1.1 {ratio} Normal [facility] Comment on above: Performed By: #### C VDTBH #### [facility] [address] [place] [address] [address] Grace Abdul ALP [Catalytic activity/Vol] 74 U/L Normal 46-116 [facility] Comment on above: Performed By: #### C VDTBH #### [facility] [address] [place] [address] Dr. Grace Abdul ALT [Catalytic activity/Vol] 23 U/L Normal 14-59 [facility] Comment on above: Performed By: #### C VDTBH #### [facility] [address] [place] [address] Dr. Grace Abdul Anion gap [Moles/Vol] 12.1 mmol/L Normal [facility] Comment on above: Performed By: #### C VDTBH #### [facility] [address] [place] [address] Dr. Grace Abdul AST [Catalytic activity/Vol] 21 U/L Normal 15-37 [facility] Comment on above: Performed By: #### C VDTBH #### [facility] [address] [place] [address] [address] Grace Abdul Bilirubin [Mass/Vol] 0.2 mg/dL Normal 0.2-1.0 [facility] Comment on above: Performed By: #### C VDTBH #### [facility] [address] [place] [address] [address] Grace Abdul Calcium [Mass/Vol] 9.3 mg/dL Normal 8.5-10.1 [facility] Comment on above: Performed By: #### C VDTBH #### [facility] [address] [place] [address] [address] Grace Abdul Chloride [Moles/Vol] 99 mmol/L Normal 98-107 [facility] Comment on above: Performed By: #### C VDTBH #### [facility] [address] [place] [address] [address] Grace Abdul CO2 [Moles/Vol] 31.2 mmol/L Normal 21.0-32.0 [facility] Comment on above: Performed By: #### C VDTBH #### [facility] [address] [place] [address] Dr. Grace Abdul Creatinine [Mass/Vol] 1.22 mg/dL Critically high 0.55-1.02 [facility] Comment on above: Performed By: #### C VDTBH #### [facility] [address] [place] [address] Dr. Grace Abdul EGFR-AF AUSTRIAN 51 mL/min/1.73m2 Critically low >=60 [facility] Comment on above: Performed By: #### C VDTBH #### [facility] [address] [place] [address] Dr. Grace Abdul EGFR-NON AF AUSTRIAN 42 mL/min/1.73m2 Critically low >=60 [facility] Comment on above: Performed By: #### C VDTBH #### [facility] [address] [place] [address] Dr. Grace Abdul Globulin (S) [Mass/Vol] 3.3 g/dL Normal [facility] Comment on above: Performed By: #### C VDTBH #### [facility] [address] [place] [address] Dr. Grace Abdul Glucose [Mass/Vol] 115 mg/dL Critically high 74-106 T [facility] Comment on above: Performed By: #### C VDTBH #### [facility] [address] [place] [address] Dr. Grace Abdul Potassium [Moles/Vol] 3.3 mmol/L Critically low 3.5-5.1 [facility] Comment on above: Performed By: #### C VDTBH #### [facility] [address] [address] [address] Grace Abdul Protein [Mass/Vol] 6.9 g/dL Normal 6.4-8.2 [facility] Comment on above: Performed By: #### C VDTBH #### [facility] [address] [address] [address] Grace Abdul Sodium [Moles/Vol] 139 mmol/L Normal 136-145 [facility] Comment on above: Performed By: #### C VDTBH #### [facility] [address] [address] [address] Grace Abdul Urea nitrogen [Mass/Vol] 23.0 mg/dL Critically high 7.0-18.0 [facility] Comment on above: Performed By: #### C VDTBH #### [facility] [address] [address] [address] Grace Abdul Urea nitrogen/Creatinine [Mass ratio] 18.9 mg/mg Normal [facility] Comment on above: Performed By: #### C VDTBH #### [facility] [address] [address] [address] Grace Abdul URINE MICROSCOPIC ONLYon BACTERIA NONE SEEN Normal NONE SEEN [facility] Comment on above: Performed By: #### GINA FELDERRO ####[facility] [address] [address]Dr. Grace Abdul Bacteria identified Cx Nom (U) NOT INDICATED Normal [facility] Comment on above: Performed By: #### Anthony ELLISON UMICRO ####[facility] [address] [address]Dr. Grace Abdul CAST NONE SEEN Normal NONE SEEN [facility] Comment on above: Performed By: #### GINA FELDERRO ####[facility] [address] [address]Dr. Grace Abdul Crystals LM Nom (Urine sed) NONE SEEN Normal NONE SEEN [facility] Comment on above: Performed By: #### GINA FELDERRO ####[facility] [address] [address]Dr. Grace Abdul Epithelial cells LM Ql (Urine sed) RARE Normal NONE SEEN /RARE [facility] Comment on above: Performed By: #### ROBERT FELDER ####[facility] [address] [address]Dr. Grace Abdul MUCOUS NONE SEEN Normal NONE SEEN [facility] Comment on above: Performed By: #### ROBERT FELDER ####[facility] [address] [address]DrLisette Abdul RBC 0-2 Normal 0-2 [facility] Comment on above: Performed By: #### ROBERT FELDER ####[facility] [address] [place], [place] [address]Dr. Grace Abdul WBC 0-2 Abnormal NONE SEEN [facility] Comment on above: Performed By: #### ROBERT FELDER ####[facility] [address] [place], [place] [address]DrLisette Abdul BNPon 12-11-2021 Natriuretic peptide B (Bld) [Mass/Vol] 665.0 pg/mL Normal <=1,800.0 [facility] Comment on above: Performed By: #### B MP #### [facility] [address] [address] [address] Grace Abdul CBC AUTO DIFFon 12-11-2021 BASO # 0.0 103/ul Normal 0.0-0.1 [facility] Comment on above: Performed By: #### C BC ####[facility] [address] [address]DrLisette Abdul Basophils/100 WBC (Bld) 0.5 % Normal 0.2-2.0 [facility] Comment on above: Performed By: #### C BC ####[facility] [address] [address]DrLisette Abdul EO # 0.1 103/ul Normal 0.0-0.7 [facility] Comment on above: Performed By: #### C BC ####[facility] [address] [id number]. Grace Abdul Eosinophils/100 WBC (Bld) 1.9 % Normal 0.9-7.0 [facility] Comment on above: Performed By: #### C BC ####[facility] [address] [id number]. Grace Abdul Erythrocyte distribution width (RBC) [Ratio] 13.4 % Normal 11.0-15.0 [facility] Comment on above: Performed By: #### C BC ####[facility] [address] [id number]. Grace Abdul Hematocrit (Bld) [Volume fraction] 36.2 % Normal 36.0-48.0 [facility] Comment on above: Performed By: #### C BC ####[facility] [address] [place], [place] [address]Dr. Grace Abdul Hemoglobin (Bld) [Mass/Vol] 11.9 g/dL Critically low 12.0-16.0 [facility] Comment on above: Performed By: #### C BC ####[facility] [address] [address]Dr. Grace Abdul IG # 0.01 10e3/ul Normal 0.00-0.03 [facility] Comment on above: Performed By: #### C BC ####[facility] [address] [address]Dr. Grace Abdul IG % 0.2 % Normal 0.0-0.5 [facility] Comment on above: Performed By: #### C BC ####[facility] [address] [id number]. Grace Abdul LYMPH # 0.5 103/ul Critically low 1.2-3.8 [facility] Comment on above: Performed By: #### C BC ####[facility] [address] [place], [place] [address]Dr. Grace Abdul Lymphocytes/100 WBC (Bld) 11.5 % Critically low 20.5-60.0 [facility] Comment on above: Performed By: #### C BC ####[facility] [address] [id number]. Grace Abdul MANUAL DIFF REQ NO Normal [facility] Comment on above: Performed By: #### C BC ####[facility] [address] [id number]. Grace Abdul MCH (RBC) [Entitic mass] 31.6 pg Normal 26.7-34.0 [facility] Comment on above: Performed By: #### C BC ####[facility] [address] [place], [place] [address]Dr. Grace Abdul MCHC (RBC) [Mass/Vol] 32.9 g/dL Normal 29.9-35.2 [facility] Comment on above: Performed By: #### C BC ####[facility] [address] [place], [place] [address]Dr. Grace Abdul MCV (RBC) [Entitic vol] 96.0 fL Normal 81.0-99.0 [facility] Comment on above: Performed By: #### C BC ####[facility] [address] [place], [place] [address]Dr. Grace Abdul MONO # 0.6 103/ul Normal 0.3-0.8 [facility] Comment on above: Performed By: #### C BC ####[facility] [address] [address]Dr. Grace Abdul Monocytes/100 WBC (Bld) 14.4 % Critically high 1.7-12.0 [facility] Comment on above: Performed By: #### C BC ####[facility] [address] [place], [place] [address]Dr. Grace Abdul NEUT # 3.0 103/ul Normal 1.4-6.5 [facility] Comment on above: Performed By: #### C BC ####[facility] [address] [place], [place] [address]Dr. Grace Abdul Neutrophils/100 WBC (Bld) 71.5 % Normal 43.0-75.0 [facility] Comment on above: Performed By: #### C BC ####[facility] [address] [place], [place] [address]Im. Grace Abdul Platelet mean volume (Bld) [Entitic vol] 9.2 fL Critically low 9.5-13.5 [facility] Comment on above: Performed By: #### C BC ####[facility] [address] [place], [place] [address]Kw. Grace Abdul PLT 290 103/ul Normal 150-450 [facility] Comment on above: Performed By: #### C BC ####[facility] [address] [place], [place] [address]Kt. Grace Abdul RBC 3.77 106/ul Critically low 4.20-5.40 [facility] Comment on above: Performed By: #### C BC ####[facility] [address] [id number]. Grace Abdul WBC 4.2 103/ul Normal 4.0-11.0 [facility] Comment on above: Performed By: #### C BC ####[facility] [address] [id number] Abdul FREE THYROXINE INDEX T7on FTI 2.63 Normal 1.30-4.50 [facility] Comment on above: Performed By: #### B MP #### [facility] [address] [address] [address] Grace Abdul T3U 35.0 % Normal 30.0-39.0 [facility] Comment on above: Performed By: #### B MP #### [facility] [address] [address] [address] Grace Abdul T4 [Mass/Vol] 7.50 ug/dL Normal 4.80-13.90 [facility] Comment on above: Performed By: #### B MP #### [facility] [address] [address] [address] Grace Abdul GLYCOHEMOGLOBIN A1Con 2021 ADA RECOMMENDATION SEE BELOW Normal [facility] Comment on above: Result Comment: ADA RECOMMENDED LIMIT 4.0 - 6.0 ADA THERAPEUTIC TARGET < 7.0 ACTION SUGGESTED > 7.0 Performed By: #### A 1C ####[facility] [address] [id number]. Grace Abdul Glucose [Mass/Vol] 111 mg/dL Normal [facility] Comment on above: Performed By: #### A 1C ####[facility] [address] [id number]. Grace Abdul HbA1c (Bld) [Mass fraction] 5.5 % Normal 4.5-6.2 [facility] Comment on above: Performed By: #### A 1C ####[facility] [address] [address]Dr. Grace Abdul IRONon 12-11-2021 Iron [Mass/Vol] 50.0 ug/dL Normal 50.0-170.0 [facility] Comment on above: Performed By: #### I KASANDRA WEBSTER, VITB12 ####[facility] [address] [address]Dr. Grace Abdul LIPID PROFILEon 12-11-2021 CHOL-HDL RATIO NORM SEE BELOW Normal [facility] Comment on above: Result Comment: 3.3 - 4.4 LOW RISK 4.4 - 7.1 AVERAGE RISK 7.1 - 11.0 MODERATE RISK >11.0 HIGH RISK Performed By: #### B MP #### [facility] [address] [address] [address] Grace Abdul Cholesterol [Mass/Vol] 182 mg/dL Normal <=200 [facility] Comment on above: Performed By: #### B MP #### [facility] [address] [address] [address] Grace Abdul Cholesterol in HDL [Mass/Vol] 60 mg/dL Normal 40-60 [facility] Comment on above: Performed By: #### B MP #### [facility] [address] [address] [address] Grace Abdul Cholesterol in LDL [Mass/Vol] 101.2 mg/dL Normal [facility] Comment on above: Performed By: #### B MP #### [facility] [address] [address] [address] Grace Abdul Cholesterol.total/C holesterol in HDL [Mass ratio] 3.0 {ratio} Normal [facility] Comment on above: Performed By: #### B MP #### [facility] [address] [address] [address] Grace Abdul HDL NORMAL > or = 60 mg/dl - LO W CARDIOVASCULAR RISK <40 mg/dl - HIGH CARDIOVASCULAR RISK Normal [facility] Comment on above: Performed By: #### B MP #### [facility] [address] [address] [address] Grace Abdul LDL CALC NORMAL SEE BELOW Normal [facility] Comment on above: Result Comment: <100 mg/dl OPTIMAL 100 - 129 mg/dl NEAR OR ABOVE OPTIMAL 130 - 159 mg/dl BORDERLINE HIGH 160 - 189 mg/dl HIGH >190 mg/dl VERY HIGH Performed By: #### B MP #### [facility] [address] [address] [address] Grace Abdul Triglyceride [Mass/Vol] 104 mg/dL Normal <=150 [facility] Comment on above: Performed By: #### B MP #### [facility] [address] [address] [address] Grace Abdul VLDL CALC 20.8 mg/dL Normal [facility] Comment on above: Performed By: #### B MP #### [facility] [address] [address] [address] Grace Abdul PROF 14(COMP METB)on 022 Albumin [Mass/Vol] 3.5 g/dL Normal 3.4-5.0 [facility] Comment on above: Performed By: #### B MP #### [facility] [address] [address] [address] Grace Abdul Albumin/Globulin [Mass ratio] 1.0 {ratio} Normal [facility] Comment on above: Performed By: #### B MP #### [facility] [address] [address] [address] Grace Abdul ALP [Catalytic activity/Vol] 55 U/L Normal 46-116 [facility] Comment on above: Performed By: #### B MP #### [facility] [address] [address] [address] Grace Abdul ALT [Catalytic activity/Vol] 21 U/L Normal 14-59 [facility] Comment on above: Performed By: #### B MP #### [facility] [address] [address] [address] Grace Abdul Anion gap [Moles/Vol] 9.3 mmol/L Normal [facility] Comment on above: Performed By: #### B MP #### [facility] [address] [address] [address] Grace Abdul AST [Catalytic activity/Vol] 21 U/L Normal 15-37 [facility] Comment on above: Performed By: #### B MP #### [facility] [address] [address] [address] Grace Abdul Bilirubin [Mass/Vol] 0.3 mg/dL Normal 0.2-1.0 [facility] Comment on above: Performed By: #### B MP #### [facility] [address] [address] [address] Grace Abdul Calcium [Mass/Vol] 9.5 mg/dL Normal 8.5-10.1 [facility] Comment on above: Performed By: #### B MP #### [facility] [address] [address] [address] Grace Abdul Chloride [Moles/Vol] 102 mmol/L Normal 98-107 [facility] Comment on above: Performed By: #### B MP #### [facility] [address] [address] [address] Grace Abdul CO2 [Moles/Vol] 28.5 mmol/L Normal 21.0-32.0 [facility] Comment on above: Performed By: #### B MP #### [facility] [address] [address] [address] Grace Abdul Creatinine [Mass/Vol] 1.04 mg/dL Critically high 0.55-1.02 [facility] Comment on above: Performed By: #### B MP #### [facility] [address] [address] [address] Grace Abdul EGFR-AF AUSTRIAN >60 Normal >=60 [facility] Comment on above: Performed By: #### B MP #### [facility] [address] [address] [address] Grace Abdul EGFR-NON AF AUSTRIAN 51 mL/min/1.73m2 Critically low >=60 [facility] Comment on above: Performed By: #### B MP #### [facility] [address] [address] [address] Grace Abdul Globulin (S) [Mass/Vol] 3.5 g/dL Normal [facility] Comment on above: Performed By: #### B MP #### [facility] [address] [address] [address] Grace Abdul Glucose [Mass/Vol] 102 mg/dL Normal 74-106 [facility] Comment on above: Performed By: #### B MP #### [facility] [address] [address] [address] Grace Abdul Potassium [Moles/Vol] 3.8 mmol/L Normal 3.5-5.1 [facility] Comment on above: Performed By: #### B MP #### [facility] [address] [address] [address] Grace Abdul Protein [Mass/Vol] 7.0 g/dL Normal 6.4-8.2 [facility] Comment on above: Performed By: #### B MP #### [facility] [address] [address] [address] Grace Abdul Sodium [Moles/Vol] 136 mmol/L Normal 136-145 [facility] Comment on above: Performed By: #### B MP #### [facility] [address] [address] [address] Grace Abdul Urea nitrogen [Mass/Vol] 20.0 mg/dL Critically high 7.0-18.0 [facility] Comment on above: Performed By: #### B MP #### [facility] [address] [address] [address] Grace Abdul Urea nitrogen/Creatinine [Mass ratio] 19.2 mg/mg Normal [facility] Comment on above: Performed By: #### B MP #### [facility] [address] [address] [address] Grace Abdul TSHon 12-11-2021 TSH 0.247 uIU/mL Critically low 0.358-3.740 [facility] Comment on above: Performed By: #### B MP #### [facility] [address] [address] [address] Grace Abdul VITAMIN B12on 12-11-2021 Cobalamin (Vitamin B12) [Mass/Vol] 762.0 pg/mL Normal 193.0-986.0 [facility] Comment on above: Performed By: #### I DARIN VITAD, VITB12 ####[facility] [address] [address]DrLisette Abdul VITAMIN D 25 OHon 12-11-2021 VIT D 25-OH 54.9 ng/mL Normal [facility] Comment on above: Performed By: #### I DARIN VITAD, VITB12 ####[facility] [address] [address]DrLisette Abdul VIT D RANGES SEE BELOW Normal [facility] Comment on above: Result Comment: <20 ng/mL Vit D deficient 20 - <30 ng/mL Vit D insufficient 30 - 100 ng/mL Vit D sufficient >100 ng/mL Potential Toxicity Performed By: #### I DARIN VITAD, VITB12 ####[facility] [address] [address]DrLisette Abdul MG MAMM SCREEN 3D CLEMENCIA CADon 11-25-2021 MG MAMM SCREEN 3D CLEMENCIA CAD Patient: ALEXA DELGADO Exam Date: 11/25/2021 : 1940 Gender:F Ordering : DR GALINA ROGERS . Admission #: [id number] Family : DR ARMANDO MORALES Order #: [id number] CLICK HERE TO VIEW EXAM RADIOLOGY REPORT [...] Treatments None Family Cancers None LOCATION: [facility] BREAST COMPOSITION: Scattered areas fibroglandular density. [...] MD on 11/25/2021 at 14:14 Normal [facility] CULTURE URINEon 11-24-2021 CULTURE URINE Culture Observations : LIGHT GROWTH OF MIXED GENITAL ALANIS. NO POTENTIAL PATHOGENS SEEN. Normal [facility] Comment on above: Performed By: #### U RCX ####[facility] [address] [address]Dr. Grace Abdul GI PANEL (PCR)on 11-24-2021 Adenovirus F 40/41 Not detected Normal NOT DETECTED [facility] Comment on above: Performed By: #### C BC #### [facility] [address] [address] [address] Grace Abdul Astrovirus Not detected Normal NOT DETECTED [facility] Comment on above: Performed By: #### C BC #### [facility] [address] [address] [address] Grace Dorman. Diff toxin A/B Not detected Normal NOT DETECTED [facility] Comment on above: Performed By: #### C BC #### [facility] [address] [address] [address] Grace Abdul Campylobacter Not detected Normal NOT DETECTED [facility] Comment on above: Performed By: #### C BC #### [facility] [address] [address] [address] Grace Abdul Cryptosporidium Not detected Normal NOT DETECTED [facility] Comment on above: Performed By: #### C BC #### [facility] [address] [place] [address] Dr. Grace Abdul Cyclos. Cayetanensis Not detected Normal NOT DETECTED [facility] Comment on above: Performed By: #### C BC #### [facility] [address] [place] [address] Dr. Grace Abdul E. Coli O157 Not Applicable Normal Not Applicable [facility] Comment on above: Performed By: #### C BC #### [facility] [address] [place] [address] Dr. Grace Abdul E. histolytica Not detected Normal NOT DETECTED [facility] Comment on above: Performed By: #### C BC #### [facility] [address] [place] [address] Dr. Grace Abdul EAEC Not detected Normal NOT DETECTED [facility] Comment on above: Performed By: #### C BC #### [facility] [address] [place] [address] Dr. Grace Abdul EIEC Not detected Normal NOT DETECTED [facility] Comment on above: Performed By: #### C BC #### [facility] [address] [place] [address] Dr. Grace Abdul EPEC Not detected Normal NOT DETECTED [facility] Comment on above: Performed By: #### C BC #### [facility] [address] [place] [address] Dr. Grace Abdul ETEC Not detected Normal NOT DETECTED [facility] Comment on above: Performed By: #### C BC #### [facility] [address] [place] [address] Dr. Grace Abdul G. Lamblia Not detected Normal NOT DETECTED [facility] Comment on above: Performed By: #### C BC #### [facility] [address] [place] [address] Dr. Grace Abdul GIPANEL CONTROLS PASSED Normal [facility] Comment on above: Performed By: #### C BC #### [facility] [address] [address] [address] Grace [facility]AM[facility]OS [facility] HEADER GI PANEL BACTERIA Normal T [facility] Comment on above: Performed By: #### C BC #### [facility] [address] [address] [address] Grace SANDERS ECOLI GI PANEL DIARRHEAGENIC E.COLI / SHIGELLA Normal [facility] Comment on above: Performed By: #### C BC #### [facility] [address] [address] [address] Grace SANDERS INFO SEE BELOW Normal [facility] Comment on above: Result Comment: EAEC - Enteroaggregative E. Coli EPEC- Enteropathogenic E. Coli ETEC- Enterotoxigenic E. Coli lt/st STEC- Shigella-like toxin-producing E. Coli stx1/stx2 EIEC- Shigella/Enteroinvasive E. Coli Performed By: #### C BC #### [facility] [address] [address] [address] Grace SANDERS PARASITES GI PANEL PARASITES Normal [facility] Comment on above: Performed By: #### C BC #### [facility] [address] [address] [address] Grace SANDERS VIRUS GI PANEL VIRUSES Normal [facility] Comment on above: Performed By: #### C BC #### [facility] [address] [address] [address] Grace Abdul Norovirus GI/GII Not detected Normal NOT DETECTED [facility] Comment on above: Performed By: #### C BC #### [facility] [address] [address] [address] Grace Abdul P. Shigelloides Not detected Normal NOT DETECTED [facility] Comment on above: Performed By: #### C BC #### [facility] [address] [place] [address] Dr. Grace Abdul Rotavirus A Not detected Normal NOT DETECTED [facility] Comment on above: Performed By: #### C BC #### [facility] [address] [place] [address] Dr. Grace Abdul Salmonella Not detected Normal NOT DETECTED [facility] Comment on above: Performed By: #### C BC #### [facility] [address] [place] [address] Dr. Grace Abdul Sapovirus Not detected Normal NOT DETECTED [facility] Comment on above: Performed By: #### C BC #### [facility] [address] [address] [address] Grace Abdul STEC Not detected Normal NOT DETECTED [facility] Comment on above: Performed By: #### C BC #### [facility] [address] [place] [address] Dr. Grace Abdul Vibrio Not detected Normal NOT DETECTED [facility] Comment on above: Performed By: #### C BC #### [facility] [address] [place] [address] Dr. Grace Abdul Vibrio Cholera Not detected Normal NOT DETECTED [facility] Comment on above: Performed By: #### C BC #### [facility] [address] [place] [address] Dr. Grace Abdul Y. Enterocolitica Not detected Normal NOT DETECTED [facility] Comment on above: Performed By: #### C BC #### [facility] [address] [place] [address] Dr. Grace Abdul UA RANDOM W/MICROSCOPICon BACTERIA NONE SEEN Normal NONE SEEN [facility] Comment on above: Performed By: #### U AMIC ####[facility] [address] [place], [place] [address]DrLisette bAdul Bilirubin Ql (U) Negative Normal NEGATIVE [facility] [facility] Comment on above: Performed By: #### U AMIC ####[facility] [address] [place] [address]DrLisette Abdul CAST NONE SEEN Normal NONE SEEN [facility] Comment on above: Performed By: #### U AMIC ####[facility] [address]iswpigdl[address] [place] [address]DrLisette Abdul Clarity (U) CLEAR Normal CLEAR [facility] Comment on above: Performed By: #### U AMIC ####[facility] [address]jrdczo[address] [place] [address]Dr. Grace Abdul Color (U) LT. YELLOW Normal YELLOW [facility] Comment on above: Performed By: #### U AMIC ####[facility] [address]izy[address] [place] [address]Dr. Grace Abdul Crystals LM Nom (Urine sed) NONE SEEN Normal NONE SEEN [facility] Comment on above: Performed By: #### U AMIC ####[facility] [address]joq[address]xf[address] [place] [address]Dr. Grace Franko Epithelial cells LM Ql (Urine sed) FEW Abnormal NONE SEEN /RARE [facility] Comment on above: Performed By: #### U AMIC ####[facility] [address] [place] [address]Dr. Grace Abdul Glucose Ql (U) Negative Normal NEGATIVE [facility] Comment on above: Performed By: #### U AMIC ####[facility] [address]df[address]we[address] [place] [address]Dr. Grace Franko Hemoglobin Ql (U) TRACE-INTACT Abnormal NEGATIVE [facility] Comment on above: Performed By: #### U AMIC ####[facility] [address] [place], [place] [address]Dr. Benitalee ann Abdul Ketones Ql (U) Negative Normal NEGATIVE [facility] Comment on above: Performed By: #### U AMIC ####[facility] [address]ks[address] [place] [address]Dr. Yilan Abdul LEUKOCYTES Negative Normal NEGATIVE [facility] Comment on above: Performed By: #### U AMIC ####[facility] [address]tdpbqvgo[address] [place] [address]Dr. Benitalan Abdul MUCOUS NONE SEEN Normal NONE SEEN [facility] Comment on above: Performed By: #### U AMIC ####[facility] [address]vmqmacgr[address] [place] [address]Dr. Grace Abdul Nitrite Ql (U) Negative Normal NEGATIVE [facility] Comment on above: Performed By: #### U AMIC ####[facility] Qpnzqghcml79[address] [place] [address]DrLisette Abdul pH (U) 7.5 [pH] Normal 5-9 [facility] Comment on above: Performed By: #### U AMIC ####[facility] [address]ghniynn[address] [place] [address]DrLisette Abdul RBC 0-2 Normal 0-2 [facility] Comment on above: Performed By: #### U AMIC ####[facility] [address]ow[address]nrbe[address] [place] [address]DrLisette Abdul SPEC GRAVITY 1.010 Normal 1.005-<=1.025 [facility] Comment on above: Performed By: #### U AMIC ####[facility] [address]qzjkezb[address] [place] [address]DrLisette Abdul UA PROTEIN Negative Normal NEGATIVE/ TRACE [facility] Comment on above: Performed By: #### U AMIC ####[facility] [address]vltrtyeqn4[address] [place] [address]DrLisette Abdul Urobilinogen Qn (U) 0.2 {Ashley'U}/dL Normal 0.2 - 1. 0 [facility] Comment on above: Performed By: #### U AMIC ####[facility] [address]pe[address]ihx[address] [place] [address]DrLisette Abdul WBC NONE SEEN Normal NONE SEEN [facility] Comment on above: Performed By: #### U AMIC ####[facility] [address]bnzbpcygr[address] [place] [address]DrLisette Abdul CBC AUTO DIFFon 11-23-2021 BASO # 0.0 103/ul Normal 0.0-0.1 [facility] Comment on above: Performed By: #### C BC #### [facility] [address] [address] [address] Grace Abdul Basophils/100 WBC (Bld) 0.4 % Normal 0.2-2.0 [facility] Comment on above: Performed By: #### C BC #### [facility] [address] [address] [address] Grace Abdul EO # 0.1 103/ul Normal 0.0-0.7 [facility] Comment on above: Performed By: #### C BC #### [facility] [address] [place] [address] Dr. Grace Abdul Eosinophils/100 WBC (Bld) 1.5 % Normal 0.9-7.0 [facility] Comment on above: Performed By: #### C BC #### [facility] [address] [place] [address] Dr. Grace Abdul Erythrocyte distribution width (RBC) [Ratio] 13.2 % Normal 11.0-15.0 [facility] Comment on above: Performed By: #### C BC #### [facility] [address] [place] [address] Dr. Grace Abdul Hematocrit (Bld) [Volume fraction] 31.9 % Critically low 36.0-48.0 [facility] Comment on above: Performed By: #### C BC #### [facility] [address] [place] [address] Dr. Grace Abdul Hemoglobin (Bld) [Mass/Vol] 10.5 g/dL Critically low 12.0-16.0 [facility] Comment on above: Performed By: #### C BC #### [facility] [address] [place] [address] Dr. Grace Abdul IG # 0.01 10e3/ul Normal 0.00-0.03 [facility] Comment on above: Performed By: #### C BC #### [facility] [address] [place] [address] Dr. Grace Abdul IG % 0.2 % Normal 0.0-0.5 [facility] Comment on above: Performed By: #### C BC #### [facility] [address] [place] [address] Dr. Grace Abdul LYMPH # 0.7 103/ul Critically low 1.2-3.8 [facility] Comment on above: Performed By: #### C BC #### [facility] [address] [place] [address] Dr. Grace Abdul Lymphocytes/100 WBC (Bld) 14.8 % Critically low 20.5-60.0 [facility] Comment on above: Performed By: #### C BC #### [facility] [address] [place] [address] Dr. Grace bAdul MANUAL DIFF REQ NO Normal [facility] Comment on above: Performed By: #### C BC #### [facility] [address] [place] [address] Dr. Grace Abdul MCH (RBC) [Entitic mass] 31.4 pg Normal 26.7-34.0 [facility] Comment on above: Performed By: #### C BC #### [facility] [address] [place] [address] Dr. Grace Abdul MCHC (RBC) [Mass/Vol] 32.9 g/dL Normal 29.9-35.2 [facility] Comment on above: Performed By: #### C BC #### [facility] [address] [place] [address] Dr. Grace Abdul MCV (RBC) [Entitic vol] 95.5 fL Normal 81.0-99.0 [facility] Comment on above: Performed By: #### C BC #### [facility] [address] [place] [address] Dr. Grace Abdul MONO # 0.6 103/ul Normal 0.3-0.8 [facility] Comment on above: Performed By: #### C BC #### [facility] [address] [place] [address] Dr. Grace Abdul Monocytes/100 WBC (Bld) 13.4 % Critically high 1.7-12.0 [facility] Comment on above: Performed By: #### C BC #### [facility] [address] [place] [address] Dr. Grace Abdul NEUT # 3.3 103/ul Normal 1.4-6.5 [facility] Comment on above: Performed By: #### C BC #### [facility] [address] [place] [address] Dr. Grace Abdul Neutrophils/100 WBC (Bld) 69.7 % Normal 43.0-75.0 [facility] Comment on above: Performed By: #### C BC #### [facility] [address] [place] [address] [address] Grace Abdul Platelet mean volume (Bld) [Entitic vol] 9.1 fL Critically low 9.5-13.5 [facility] Comment on above: Performed By: #### C BC #### [facility] [address] [place] [address] [address] Grace Abdul PLT 335 103/ul Normal 150-450 [facility] Comment on above: Performed By: #### C BC #### [facility] [address] [place] [address] [address] Grace Abdul RBC 3.34 106/ul Critically low 4.20-5.40 [facility] Comment on above: Performed By: #### C BC #### [facility] [address] [address] [address] Grace Abdul WBC 4.8 103/ul Normal 4.0-11.0 [facility] Comment on above: Performed By: #### C BC #### [facility] [address] [address] [address] Grace Abdul FREE THYROXINE INDEX T7on FTI 1.15 Critically low 1.30-4.50 [facility] Comment on above: Performed By: #### T 7, CMP, TSH ####[facility] [address] [place] [id number]. Grace Abdul T3U 31.0 % Normal 30.0-39.0 [facility] Comment on above: Performed By: #### T 7, CMP, TSH ####[facility] [address]etnbyumv6[address] [place] [id number]. Grace Abdul T4 [Mass/Vol] 3.70 ug/dL Critically low 4.80-13.90 [facility] Comment on above: Performed By: #### T 7, CMP, TSH ####[facility] Qssqdwecav[address] [place] [id number]. Grace Abdul IRONon 11-23-2021 Iron [Mass/Vol] 52.0 ug/dL Normal 50.0-170.0 [facility] Comment on above: Performed By: #### C VDTBH #### [facility] [address] [place], [place] [address] Dr. Grace Abdul PROF 14(COMP METB)on 022 Albumin [Mass/Vol] 3.5 g/dL Normal 3.4-5.0 [facility] Comment on above: Performed By: #### T 7, CMP, TSH ####[facility] F[address]hqawqnw4[address] [place] [id number]. Grace Abdul Albumin/Globulin [Mass ratio] 1.1 {ratio} Normal [facility] Comment on above: Performed By: #### T 7, CMP, TSH ####[facility] [address]gu[address] [place] [id number]. Grace Abdul ALP [Catalytic activity/Vol] 69 U/L Normal 46-116 [facility] Comment on above: Performed By: #### T 7, CMP, TSH ####[facility] [address]xzvdaj[address] [place] [address]Dr. Grace Abdul ALT [Catalytic activity/Vol] 51 U/L Normal 14-59 [facility] Comment on above: Performed By: #### T 7, CMP, TSH ####[facility] Nkqybfbsul86[address] [place] [id number]. Grace Abdul Anion gap [Moles/Vol] 11.5 mmol/L Normal [facility] Comment on above: Performed By: #### T 7, CMP, TSH ####[facility] [address]nydnlzhjj[address] [place] [id number]. Grace Abdul AST [Catalytic activity/Vol] 24 U/L Normal 15-37 [facility] Comment on above: Performed By: #### T 7, CMP, TSH ####[facility] Ybtfkbvnvo5[address] [place] [id number]. Grace Abdul Bilirubin [Mass/Vol] 0.2 mg/dL Normal 0.2-1.0 [facility] Comment on above: Performed By: #### T 7, CMP, TSH ####[facility] Reobrmkzsr[address] [place] [id number]. Grace Abdul Calcium [Mass/Vol] 9.3 mg/dL Normal 8.5-10.1 [facility] Comment on above: Performed By: #### T 7, CMP, TSH ####[facility] Xkhjshbfrp89[address] [place] [id number]. Grace Abdul Chloride [Moles/Vol] 98 mmol/L Normal 98-107 [facility] Comment on above: Performed By: #### T 7, CMP, TSH ####[facility] [address]csamhz[address] [place] [address]Dr. Grace Abdul CO2 [Moles/Vol] 28.7 mmol/L Normal 21.0-32.0 [facility] Comment on above: Performed By: #### T 7, CMP, TSH ####[facility] Shqkokkzxl[address] [place] [address]Dr. Grace Abdul Creatinine [Mass/Vol] 1.11 mg/dL Critically high 0.55-1.02 [facility] Comment on above: Performed By: #### T 7, CMP, TSH ####[facility] [address] [place], [place] [address]Dr. Grace Abdul EGFR-AF AUSTRIAN 57 mL/min/1.73m2 Critically low >=60 [facility] Comment on above: Performed By: #### T 7, CMP, TSH ####[facility] [address]uq[address] [place] [address]Dr. Grace Abdul EGFR-NON AF AUSTRIAN 47 mL/min/1.73m2 Critically low >=60 [facility] Comment on above: Performed By: #### T 7, CMP, TSH ####[facility] Oim[address] [place], [place] [address]Dr. Grace Abdul Globulin (S) [Mass/Vol] 3.3 g/dL Normal [facility] Comment on above: Performed By: #### T 7, CMP, TSH ####[facility] C[address]boqhbni[address] [place] [address]Dr. Grace Abdul Glucose [Mass/Vol] 88 mg/dL Normal 74-106 [facility] Comment on above: Performed By: #### T 7, LEONOR, TSH ####[facility] Aqwdasoalx[address] [place] [address]Dr. Grace Abdul Potassium [Moles/Vol] 4.2 mmol/L Normal 3.5-5.1 [facility] Comment on above: Performed By: #### T 7, CMP, TSH ####[facility] Gxepysvvkh[address] [place] [address]Dr. Grace Abdul Protein [Mass/Vol] 6.8 g/dL Normal 6.4-8.2 [facility] Comment on above: Performed By: #### Ainsley 7, LEONOR, TSH ####[facility] Uvpwbwycpm[address] [place], [place] [address]Dr. Grace Abdul Sodium [Moles/Vol] 134 mmol/L Critically low 136-145 [facility] Comment on above: Performed By: #### T 7, LEONOR, TSH ####[facility] [address]fs[address] [place], [place] [address]Dr. Grace Abdul Urea nitrogen [Mass/Vol] 33.0 mg/dL Critically high 7.0-18.0 [facility] Comment on above: Performed By: #### T 7, CMP, TSH ####[facility] X[address]isxnx[address] [place] [address]Dr. Grace Abdul Urea nitrogen/Creatinine [Mass ratio] 29.7 mg/mg Normal [facility] Comment on above: Performed By: #### T 7, CMP, TSH ####[facility] Qwldtczuez[address] [place] [address]Dr. Grace Abdul TSHon 11-23-2021 TSH 0.469 uIU/mL Normal 0.358-3.740 [facility] Comment on above: Performed By: #### T 7, CMP, TSH ####[facility] [address]zgargt[address] [place] [address]Dr. Grace Abdul CBC AUTO DIFFon 11-17-2021 BASO # 0.0 103/ul Normal 0.0-0.1 [facility] Comment on above: Performed By: #### C VDTBH #### [facility] [address] [place] [address] Dr. Grace Abdul Basophils/100 WBC (Bld) 0.2 % Normal 0.2-2.0 [facility] Comment on above: Performed By: #### C VDTBH #### [facility] [address] [place] [address] Dr. Grace Abdul EO # 0.1 103/ul Normal 0.0-0.7 [facility] Comment on above: Performed By: #### C VDTBH #### [facility] [address] [place] [address] Dr. Grace Abdul Eosinophils/100 WBC (Bld) 0.9 % Normal 0.9-7.0 [facility] Comment on above: Performed By: #### C VDTBH #### [facility] [address] [place] [address] Dr. Grace Abdul Erythrocyte distribution width (RBC) [Ratio] 12.8 % Normal 11.0-15.0 [facility] Comment on above: Performed By: #### C VDTBH #### [facility] [address] [place] [address] Dr. Grace Abdul Hematocrit (Bld) [Volume fraction] 35.2 % Critically low 36.0-48.0 [facility] Comment on above: Performed By: #### C VDTBH #### [facility] [address] [place] [address] Dr. Grace Abdul Hemoglobin (Bld) [Mass/Vol] 12.1 g/dL Normal 12.0-16.0 [facility] Comment on above: Performed By: #### C VDTBH #### [facility] [address] [place] [address] Dr. Grace Abdul IG # 0.05 10e3/ul Critically high 0.00-0.03 [facility] Comment on above: Performed By: #### C VDTBH #### [facility] [address] [place] [address] Dr. Grace Abdul IG % 0.6 % Critically high 0.0-0.5 [facility] Comment on above: Performed By: #### C VDTBH #### [facility] [address] [place] [address] Dr. Grace Abdul LYMPH # 0.6 103/ul Critically low 1.2-3.8 [facility] Comment on above: Performed By: #### C VDTBH #### [facility] [address] [place] [address] Dr. Grace Abdul Lymphocytes/100 WBC (Bld) 7.4 % Critically low 20.5-60.0 [facility] Comment on above: Performed By: #### C VDTBH #### [facility] [address] [place] [address] Dr. Grace Abdul MANUAL DIFF REQ NO Normal [facility] Comment on above: Performed By: #### C VDTBH #### [facility] [address] [place] [address] Dr. Grace Abdul MCH (RBC) [Entitic mass] 31.5 pg Normal 26.7-34.0 [facility] Comment on above: Performed By: #### C VDTBH #### [facility] [address] [place] [address] Dr. Grace Abdul MCHC (RBC) [Mass/Vol] 34.4 g/dL Normal 29.9-35.2 [facility] Comment on above: Performed By: #### C VDTBH #### [facility] [address] [place] [address] Dr. Grace Abdul MCV (RBC) [Entitic vol] 91.7 fL Normal 81.0-99.0 [facility] Comment on above: Performed By: #### C VDTBH #### [facility] [address] [place] [address] Dr. Grace Abdul MONO # 1.0 103/ul Critically high 0.3-0.8 [facility] Comment on above: Performed By: #### C VDTBH #### [facility] [address] [place], [place] [id number] Dr. Grace Abdlu Monocytes/100 WBC (Bld) 12.1 % Critically high 1.7-12.0 [facility] Comment on above: Performed By: #### C VDTBH #### [facility] [address] [place] [address] Dr. Grace Abdul NEUT # 6.3 103/ul Normal 1.4-6.5 [facility] Comment on above: Performed By: #### C VDTBH #### [facility] [address] [place] [address] Dr. Grace Abdul Neutrophils/100 WBC (Bld) 78.8 % Critically high 43.0-75.0 [facility] Comment on above: Performed By: #### C VDTBH #### [facility] [address] [place] [address] Dr. Grace Abdul Platelet mean volume (Bld) [Entitic vol] 9.1 fL Critically low 9.5-13.5 [facility] Comment on above: Performed By: #### C VDTBH #### [facility] [address] [place] [address] Dr. Grace Abdul PLT 281 103/ul Normal 150-450 [facility] Comment on above: Performed By: #### C VDTBH #### [facility] [address] [place] [address] Dr. Grace Abdul RBC 3.84 106/ul Critically low 4.20-5.40 [facility] Comment on above: Performed By: #### C VDTBH #### [facility] [address] [place] [address] Dr. Grace Abdul WBC 8.0 103/ul Normal 4.0-11.0 [facility] Comment on above: Performed By: #### C VDTBH #### [facility] [address] [place] [address] Dr. Grace Abdul MAGNESIUMon 11-17-2021 Magnesium [Mass/Vol] 1.9 mg/dL Normal 1.8-2.4 [facility] Comment on above: Performed By: #### C VDTBH #### [facility] [address] [address] [address] Grace Abdul PROF CHEM 8 (BAS METB)on Anion gap [Moles/Vol] 13.9 mmol/L Normal [facility] Comment on above: Performed By: #### C VDTBH #### [facility] [address] [place] [address] Dr. Grace Abdul Calcium [Mass/Vol] 8.7 mg/dL Normal 8.5-10.1 [facility] Comment on above: Performed By: #### C VDTBH #### [facility] [address] [place] [address] Dr. Grace Abdul Chloride [Moles/Vol] 101 mmol/L Normal 98-107 [facility] Comment on above: Performed By: #### C VDTBH #### [facility] [address] [place] [address] Dr. Grace Abdul CO2 [Moles/Vol] 24.3 mmol/L Normal 21.0-32.0 [facility] Comment on above: Performed By: #### C VDTBH #### [facility] [address] [place] [address] Dr. Grace Abdul Creatinine [Mass/Vol] 0.89 mg/dL Normal 0.55-1.02 [facility] Comment on above: Performed By: #### C VDTBH #### [facility] [address] [place] [address] Dr. Grace Abdul EGFR-AF AUSTRIAN >60 Normal >=60 [facility] Comment on above: Performed By: #### C VDTBH #### [facility] [address] [place] [address] Dr. Grace Abdul EGFR-NON AF AUSTRIAN >60 Normal >=60 [facility] Comment on above: Performed By: #### C VDTBH #### [facility] [address] [place] [address] Dr. Grace Abdul Glucose [Mass/Vol] 97 mg/dL Normal 74-106 [facility] Comment on above: Performed By: #### C VDTBH #### [facility] [address] [place] [address] Dr. Grace Abdul Potassium [Moles/Vol] 3.2 mmol/L Critically low 3.5-5.1 [facility] Comment on above: Performed By: #### C VDTBH #### [facility] [address] [place] [address] Dr. Grace Abdul Sodium [Moles/Vol] 136 mmol/L Normal 136-145 [facility] Comment on above: Performed By: #### C VDTBH #### [facility] [address] [place] [address] Dr. Grace Abdul Urea nitrogen [Mass/Vol] 14.0 mg/dL Normal 7.0-18.0 [facility] Comment on above: Performed By: #### C VDTBH #### [facility] [address] [place] [address] Dr. Grace Abdul Urea nitrogen/Creatinine [Mass ratio] 15.7 mg/mg Normal [facility] Comment on above: Performed By: #### C VDTBH #### [facility] [address] [place] [address] Dr. Grace Abdul CBC AUTO DIFFon 11-16-2021 BASO # 0.0 103/ul Normal 0.0-0.1 [facility] Comment on above: Performed By: #### B MP #### [facility] [address] [place] [address] Dr. Grace Abdul Basophils/100 WBC (Bld) 0.2 % Normal 0.2-2.0 [facility] Comment on above: Performed By: #### B MP #### [facility] [address] [place] [address] Dr. Grace Abdul EO # 0.0 103/ul Normal 0.0-0.7 [facility] Comment on above: Performed By: #### B MP #### [facility] [address] [place] [address] Dr. Grace Abdul Eosinophils/100 WBC (Bld) 0.5 % Critically low 0.9-7.0 [facility] Comment on above: Performed By: #### B MP #### [facility] [address] [address] [address] Grace Abdul Erythrocyte distribution width (RBC) [Ratio] 12.4 % Normal 11.0-15.0 [facility] Comment on above: Performed By: #### B MP #### [facility] [address] [address] [address] Grace Abdul Hematocrit (Bld) [Volume fraction] 33.6 % Critically low 36.0-48.0 [facility] Comment on above: Performed By: #### B MP #### [facility] [address] [address] [address] Grace Abdul Hemoglobin (Bld) [Mass/Vol] 11.8 g/dL Critically low 12.0-16.0 [facility] Comment on above: Performed By: #### B MP #### [facility] [address] [place] [address] Dr. Grace Abdul IG # 0.04 10e3/ul Critically high 0.00-0.03 [facility] Comment on above: Performed By: #### B MP #### [facility] [address] [address] [address] Grace Abdul IG % 0.7 % Critically high 0.0-0.5 [facility] Comment on above: Performed By: #### B MP #### [facility] [address] [address] [address] Grace Abdul LYMPH # 0.7 103/ul Critically low 1.2-3.8 [facility] Comment on above: Performed By: #### B MP #### [facility] [address] [address] [address] Grace Abdul Lymphocytes/100 WBC (Bld) 11.1 % Critically low 20.5-60.0 [facility] Comment on above: Performed By: #### B MP #### [facility] [address] [place] [address] Dr. Grace Abdul MANUAL DIFF REQ NO Normal [facility] Comment on above: Performed By: #### B MP #### [facility] [address] [address] [address] Grace Abdul MCH (RBC) [Entitic mass] 31.5 pg Normal 26.7-34.0 [facility] Comment on above: Performed By: #### B MP #### [facility] [address] [address] [address] Grace Abdul MCHC (RBC) [Mass/Vol] 35.1 g/dL Normal 29.9-35.2 [facility] Comment on above: Performed By: #### B MP #### [facility] [address] [place] [address] Dr. Grace Abdul MCV (RBC) [Entitic vol] 89.6 fL Normal 81.0-99.0 [facility] [facility] Comment on above: Performed By: #### B MP #### [facility] [address] [place] [address] Dr. Grace Adbul MONO # 0.9 103/ul Critically high 0.3-0.8 [facility] Comment on above: Performed By: #### B MP #### [facility] [address] [place] [address] Dr. Grace Abdul Monocytes/100 WBC (Bld) 14.0 % Critically high 1.7-12.0 [facility] Comment on above: Performed By: #### B MP #### [facility] [address] [place] [address] Dr. Grace Abdul NEUT # 4.5 103/ul Normal 1.4-6.5 [facility] Comment on above: Performed By: #### B MP #### [facility] [address] [place] [address] Dr. Grace Abdul Neutrophils/100 WBC (Bld) 73.5 % Normal 43.0-75.0 [facility] Comment on above: Performed By: #### B MP #### [facility] [address] [place] [address] Dr. Grace Abdul Platelet mean volume (Bld) [Entitic vol] 9.3 fL Critically low 9.5-13.5 [facility] Comment on above: Performed By: #### B MP #### [facility] [address] [address] [address] Grace Abdul PLT 292 103/ul Normal 150-450 [facility] Comment on above: Performed By: #### B MP #### [facility] [address] [address] [address] Grace Abdul RBC 3.75 106/ul Critically low 4.20-5.40 [facility] Comment on above: Performed By: #### B MP #### [facility] [address] [address] [address] Grace Abdul WBC 6.1 103/ul Normal 4.0-11.0 [facility] Comment on above: Performed By: #### B MP #### [facility] [address] [address] [address] Grace Abdul CULTURE URINEon 11-16-2021 CULTURE URINE Culture Observations : LIGHT GROWTH OF MIXED GENITAL ALANIS. NO POTENTIAL PATHOGENS SEEN. Normal [facility] Comment on above: Performed By: #### U RCX ####[facility] [id number] [id number]. Grace Abdul ER URINE PROFILEon 2 Bilirubin Ql (U) Negative Normal NEGATIVE [facility] Comment on above: Performed By: #### C VDTBH #### [facility] [address] [place] [address] Dr. Grace Abdul Clarity (U) CLEAR Normal CLEAR [facility] Comment on above: Performed By: #### C VDTBH #### [facility] [address] [place] [address] Dr. Grace Abdul Color (U) LT. YELLOW Normal YELLOW [facility] Comment on above: Performed By: #### C VDTBH #### [facility] [address] [place] [address] Dr. Grace HIGGINS A micrscopic examination will be performed if indicated. Normal [facility] Comment on above: Performed By: #### C VDTBH #### [facility] [address] [place] [address] Dr. Grace Abdul Glucose Ql (U) Negative Normal NEGATIVE [facility] Comment on above: Performed By: #### C VDTBH #### [facility] [address] [place] [address] Dr. Grace Abdul Hemoglobin Ql (U) SMALL Abnormal NEGATIVE [facility] Comment on above: Performed By: #### C VDTBH #### [facility] [address] [place] [address] Dr. Grace Abdul Ketones Ql (U) 40 mg/dl Abnormal NEGATIVE [facility] Comment on above: Performed By: #### C VDTBH #### [facility] [address] [place] [address] Dr. Grace Abdul LEUKOCYTES SMALL Abnormal NEGATIVE [facility] Comment on above: Performed By: #### C VDTBH #### [facility] [address] [place] [address] Dr. Grace Abdul Nitrite Ql (U) Negative Normal NEGATIVE [facility] Comment on above: Performed By: #### C VDTBH #### [facility] [address] [place] [address] Dr. Grace Abdul pH (U) 7.0 [pH] Normal 5-9 [facility] Comment on above: Performed By: #### C VDTBH #### [facility] [address] [place] [address] Dr. Grace Abdul SPEC GRAVITY 1.010 Normal 1.005-<=1.025 [facility] Comment on above: Performed By: #### C VDTBH #### [facility] [address] [place] [address] Dr. Grace Abdul UA PROTEIN Negative Normal NEGATIVE/ TRACE [facility] Comment on above: Performed By: #### C VDTBH #### [facility] [address] [place] [address] Dr. Grace Abdul UR MICRO IND INDICATED Normal [facility] Comment on above: Performed By: #### C VDTBH #### [facility] [address] [place] [address] Dr. Grace Abdul Urobilinogen Qn (U) 0.2 {Ashley'U}/dL Normal 0.2 - 1. 0 [facility] Comment on above: Performed By: #### C VDTBH #### [facility] [address] [place] [address] Dr. Grace Abdul MAGNESIUMon 11-16-2021 Magnesium [Mass/Vol] 1.8 mg/dL Normal 1.8-2.4 [facility] Comment on above: Performed By: #### C VDTBH #### [facility] [address] [address] [address] Grace Abdul PROF CHEM 8 (BAS METB)on Anion gap [Moles/Vol] 12.7 mmol/L Normal [facility] Comment on above: Performed By: #### B MP #### [facility] [address] [place] [address] Dr. Grace Abdul Calcium [Mass/Vol] 8.3 mg/dL Critically low 8.5-10.1 [facility] Comment on above: Performed By: #### B MP #### [facility] [address] [place] [address] Dr. Grace Abdul CO2 [Moles/Vol] 24.4 mmol/L Normal 21.0-32.0 [facility] Comment on above: Performed By: #### B MP #### [facility] [address] [place] [address] Dr. Grace Abdul Creatinine [Mass/Vol] 1.16 mg/dL Critically high 0.55-1.02 [facility] Comment on above: Performed By: #### B MP #### [facility] [address] [place] [address] Dr. Grace Abdul EGFR-AF AUSTRIAN 54 mL/min/1.73m2 Critically low >=60 [facility] Comment on above: Performed By: #### B MP #### [facility] [address] [place] [address] Dr. Grace Abdul EGFR-NON AF AUSTRIAN 45 mL/min/1.73m2 Critically low >=60 [facility] Comment on above: Performed By: #### B MP #### [facility] [address] [address] [address] Grace Abdul Glucose [Mass/Vol] 116 mg/dL Critically high 74-106 [facility] Comment on above: Performed By: #### B MP #### [facility] [address] [address] [address] Grace Abdul Urea nitrogen [Mass/Vol] 20.0 mg/dL Critically high 7.0-18.0 [facility] Comment on above: Performed By: #### B MP #### [facility] [address] [address] [address] Grace Abdul Urea nitrogen/Creatinine [Mass ratio] 17.2 mg/mg Normal [facility] Comment on above: Performed By: #### B MP #### [facility] [address] [address] [address] Grace Abdul Anion gap [Moles/Vol] 10.0 mmol/L Normal [facility] Comment on above: Performed By: #### B MP #### [facility] [address] [address] [address] Grace Abdul Calcium [Mass/Vol] 8.8 mg/dL Normal 8.5-10.1 [facility] Comment on above: Performed By: #### B MP #### [facility] [address] [address] [address] Grace Abdul Chloride [Moles/Vol] 96 mmol/L Critically low 98-107 [facility] Comment on above: Performed By: #### B MP #### [facility] [address] [address] [address] Grace Abdul CO2 [Moles/Vol] 26.1 mmol/L Normal 21.0-32.0 [facility] Comment on above: Performed By: #### B MP #### [facility] [address] [address] [address] Grace Abdul Creatinine [Mass/Vol] 1.11 mg/dL Critically high 0.55-1.02 [facility] Comment on above: Performed By: #### B MP #### [facility] [address] [address] [address] Grace Abdul EGFR-AF AUSTRIAN 57 mL/min/1.73m2 Critically low >=60 [facility] Comment on above: Performed By: #### B MP #### [facility] [address] [address] [address] Grace Abdul EGFR-NON AF AUSTRIAN 47 mL/min/1.73m2 Critically low >=60 [facility] Comment on above: Performed By: #### B MP #### [facility] [address] [address] [address] Grace Abdul Glucose [Mass/Vol] 94 mg/dL Normal 74-106 [facility] Comment on above: Performed By: #### B MP #### [facility] [address] [address] [address] Grace Abdul Potassium [Moles/Vol] 3.1 mmol/L Critically low 3.5-5.1 [facility] Comment on above: Performed By: #### B MP #### [facility] [address] [address] [address] Grace Abdul Performed By: #### C VDTB #### [facility] [address] [place] [address] Dr. Grace Abdul Sodium [Moles/Vol] 129 mmol/L Critically low 136-145 [facility] Comment on above: Performed By: #### B MP #### [facility] [address] [address] [address] Grace Abdul Urea nitrogen [Mass/Vol] 16.0 mg/dL Normal 7.0-18.0 [facility] Comment on above: Performed By: #### B MP #### [facility] [address] [address] [address] Grace Abdul Urea nitrogen/Creatinine [Mass ratio] 14.4 mg/mg Normal [facility] Comment on above: Performed By: #### B MP #### [facility] [address] [address] [address] Grace Abdul Anion gap [Moles/Vol] 12.6 mmol/L Normal [facility] Comment on above: Performed By: #### C VDTBH #### [facility] [address] [address] [address] Grace Abdul Calcium [Mass/Vol] 8.6 mg/dL Normal 8.5-10.1 [facility] Comment on above: Performed By: #### C VDTBH #### [facility] [address] [address] [address] Grace Abdul Chloride [Moles/Vol] 95 mmol/L Critically low 98-107 [facility] Comment on above: Performed By: #### B MP #### [facility] [address] [place] [address] Dr. Grace Abdul Performed By: #### C VDTBH #### [facility] [address] [place] [address] Dr. Grace Abdul CO2 [Moles/Vol] 22.5 mmol/L Normal 21.0-32.0 [facility] Comment on above: Performed By: #### C VDTBH #### [facility] [address] [place] [address] Dr. Grace Abdul Creatinine [Mass/Vol] 0.95 mg/dL Normal 0.55-1.02 [facility] Comment on above: Performed By: #### C VDTBH #### [facility] [address] [place] [address] Dr. Grace Abdul EGFR-AF AUSTRIAN >60 Normal >=60 [facility] Comment on above: Performed By: #### C VDTBH #### [facility] [address] [place] [address] Dr. Grace Abdul EGFR-NON AF AUSTRIAN 56 mL/min/1.73m2 Critically low >=60 [facility] Comment on above: Performed By: #### C VDTBH #### [facility] [address] [place] [address] Dr. Grace Abdul Glucose [Mass/Vol] 92 mg/dL Normal 74-106 [facility] Comment on above: Performed By: #### C VDTBH #### [facility] [address] [place] [address] Dr. Grace Abdul Sodium [Moles/Vol] 127 mmol/L Critically low 136-145 [facility] Comment on above: Performed By: #### C VDTBH #### [facility] [address] [place] [address] Dr. Grace Abdul Urea nitrogen [Mass/Vol] 18.0 mg/dL Normal 7.0-18.0 [facility] Comment on above: Performed By: #### C VDTBH #### [facility] [address] [place] [address] Dr. Grace Abdul Urea nitrogen/Creatinine [Mass ratio] 18.9 mg/mg Normal [facility] Comment on above: Performed By: #### C VDTBH #### [facility] [address] [place] [address] Dr. Grace Abdul URINE MICROSCOPIC ONLYon BACTERIA TRACE Abnormal NONE SEEN [facility] Comment on above: Performed By: #### C VDTBH #### [facility] [address] [place] [address] Dr. Graec Abdul Bacteria identified Cx Nom (U) INDICATED Normal [facility] Comment on above: Performed By: #### C VDTBH #### [facility] [address] [place] [address] Dr. Grace Abdul CAST NONE SEEN Normal NONE SEEN [facility] Comment on above: Performed By: #### C VDTBH #### [facility] [address] [place] [address] Dr. Grace Abdul Crystals LM Nom (Urine sed) NONE SEEN Normal NONE SEEN [facility] Comment on above: Performed By: #### C VDTBH #### [facility] [address] [place] [address] Dr. Grace Abdul Epithelial cells LM Ql (Urine sed) FEW Abnormal NONE SEEN /RARE [facility] Comment on above: Performed By: #### C VDTBH #### [facility] [address] [place] [address] Dr. Grace Abdul MUCOUS NONE SEEN Normal NONE SEEN [facility] Comment on above: Performed By: #### C VDTBH #### [facility] [address] [place] [address] Dr. Grace Abdul RBC 2-5 Abnormal 0-2 [facility] Comment on above: Performed By: #### C VDTBH #### [facility] [address] [place] [address] Dr. Grace Abdul WBC 5-10 Abnormal NONE SEEN [facility] Comment on above: Performed By: #### C VDTBH #### [facility] [address] [place] [address] Dr. Grace Abdul AMYLASEon 11-15-2021 Amylase [Catalytic activity/Vol] 94 U/L Normal 25-115 [facility] Comment on above: Performed By: #### C VDTBH #### [facility] [address] [place] [address] Dr. Grace Abdul BNPon 11-15-2021 Natriuretic peptide B (Bld) [Mass/Vol] 357.0 pg/mL Normal <=1,800.0 [facility] Comment on above: Performed By: #### C VDTBH #### [facility] [address] [place] [address] Dr. Grace Abdul CARDIAC JOVITA ADMITon 022 CK [Catalytic activity/Vol] 66 U/L Normal 26-192 [facility] Comment on above: Performed By: #### C VDTBH #### [facility] [address] [place] [address] Dr. Grace Abdul CK.MB [Mass/Vol] 2.19 ng/mL Normal <=3.60 [facility] Comment on above: Performed By: #### C VDTBH #### [facility] [address] [place] [address] Dr. Garce Abdul HSTROP 9.5 pg/mL Normal 4.0-51.3 [facility] Comment on above: Result Comment: CUT- OFF POINTS HAVE BEEN ESTABLISHED BASED ON THE FOURTH UNIVERSAL DEFINITIONS OF MYOCARDIAL INFARCTION. THE UPPER REFERENCE LIMIT (URL) OF TROPONIN, DEFINED THE 99TH PERCENTILE OF cTnI DISTRIBUTION IN A REFERENCE POPULATION, HAS BEEN CONFIRMED THE DECISION THRESHOLD FOR DE DIAGNOSIS. Performed By: #### C VDTBH #### [facility] [address] [address] [address] Grace Abdul JOHNNA 73 ng/mL Normal 9-82 [facility] Comment on above: Performed By: #### C VDTBH #### [facility] [address] [address] [address] Grace Abdul CBC AUTO DIFFon 11-15-2021 BASO # 0.0 103/ul Normal 0.0-0.1 [facility] Comment on above: Performed By: #### B MP #### [facility] [address] [address] [address] Grace Abdul Basophils/100 WBC (Bld) 0.1 % Critically low 0.2-2.0 [facility] Comment on above: Performed By: #### B MP #### [facility] [address] [place] [address] Dr. Grace Abdul EO # 0.0 103/ul Normal 0.0-0.7 [facility] Comment on above: Performed By: #### B MP #### [facility] [address] [place] [address] Dr. Grace Abdul Eosinophils/100 WBC (Bld) 0.1 % Critically low 0.9-7.0 [facility] Comment on above: Performed By: #### B MP #### [facility] [address] [place] [address] Dr. Grace Abdul Erythrocyte distribution width (RBC) [Ratio] 11.9 % Normal 11.0-15.0 [facility] Comment on above: Performed By: #### B MP #### [facility] [address] [place] [address] Dr. Grace Abdul Hematocrit (Bld) [Volume fraction] 36.6 % Normal 36.0-48.0 [facility] Comment on above: Performed By: #### B MP #### [facility] [address] [place] [address] Dr. Grace Abdul Hemoglobin (Bld) [Mass/Vol] 13.2 g/dL Normal 12.0-16.0 [facility] Comment on above: Performed By: #### B MP #### [facility] [address] [address] [address] Grace Abdul IG # 0.05 10e3/ul Critically high 0.00-0.03 [facility] Comment on above: Performed By: #### B MP #### [facility] [address] [address] [address] Grace Abdul IG % 0.7 % Critically high 0.0-0.5 [facility] Comment on above: Performed By: #### B MP #### [facility] [address] [place] [address] Dr. Grace Abdul LYMPH # 0.7 103/ul Critically low 1.2-3.8 [facility] Comment on above: Performed By: #### B MP #### [facility] [address] [place] [address] Dr. Grace Abdul Lymphocytes/100 WBC (Bld) 9.8 % Critically low 20.5-60.0 [facility] Comment on above: Performed By: #### B MP #### [facility] [address] [place] [address] Dr. Grace Abdul MANUAL DIFF REQ NO Normal [facility] Comment on above: Performed By: #### B MP #### [facility] [address] [address] [address] Grace Abdul MCH (RBC) [Entitic mass] 31.5 pg Normal 26.7-34.0 [facility] Comment on above: Performed By: #### B MP #### [facility] [address] [place] [address] Dr. Grace Abdul MCHC (RBC) [Mass/Vol] 36.1 g/dL Critically high 29.9-35.2 [facility] Comment on above: Performed By: #### B MP #### [facility] [address] [place] [address] Dr. Grace Abdul MCV (RBC) [Entitic vol] 87.4 fL Normal 81.0-99.0 [facility] Comment on above: Performed By: #### B MP #### [facility] [address] [address] [address] Grace Abdul MONO # 0.9 103/ul Critically high 0.3-0.8 [facility] Comment on above: Performed By: #### B MP #### [facility] [address] [address] [address] Grace Abdul Monocytes/100 WBC (Bld) 12.4 % Critically high 1.7-12.0 [facility] Comment on above: Performed By: #### B MP #### [facility] [address] [address] [address] Grace Abdul NEUT # 5.8 103/ul Normal 1.4-6.5 [facility] Comment on above: Performed By: #### B MP #### [facility] [address] [address] [address] Grace Abdul Neutrophils/100 WBC (Bld) 76.9 % Critically high 43.0-75.0 [facility] Comment on above: Performed By: #### B MP #### [facility] [address] [address] [address] Grace Abdul Platelet mean volume (Bld) [Entitic vol] 9.0 fL Critically low 9.5-13.5 [facility] Comment on above: Performed By: #### B MP #### [facility] [address] [address] [address] Grace Abdul PLT 361 103/ul Normal 150-450 [facility] Comment on above: Performed By: #### B MP #### [facility] [address] [address] [address] Grace Abdul RBC 4.19 106/ul Critically low 4.20-5.40 [facility] Comment on above: Performed By: #### B MP #### [facility] [address] [address] [address] Grace Abdul WBC 7.6 103/ul Normal 4.0-11.0 [facility] Comment on above: Performed By: #### B MP #### [facility] [address] [place] [address] Dr. Grace Abdul Covid-19 PCR (CVDTB)on 10-23 SARS-CoV-2 (COVID-19) RNA LUISITO+probe Ql (Unsp spec) Not detected Normal NOT DETECTED [facility] Comment on above: Result Comment: When [...] for this test is supported by the [place] of [employer] and Human Service's declaration that [...] used). Performed By: #### C VDTB #### [facility] [address] [place] [address] Dr. Grace Abdul LIPASEon 11-15-2021 Lipase [Catalytic activity/Vol] 178.0 U/L Normal 73.0-393.0 [facility] Comment on above: Performed By: #### C VDTB #### [facility] [address] [place] [address] Dr. Grace Abdul PROF 14(COMP METB)on 022 Albumin [Mass/Vol] 4.1 g/dL Normal 3.4-5.0 [facility] Comment on above: Performed By: #### C VDTBH #### [facility] [address] [place] [address] Dr. Grace Abdul Albumin/Globulin [Mass ratio] 1.2 {ratio} Normal [facility] Comment on above: Performed By: #### C VDTBH #### [facility] [address] [address] [address] Grace Abdul ALP [Catalytic activity/Vol] 63 U/L Normal 46-116 [facility] Comment on above: Performed By: #### C VDTBH #### [facility] [address] [address] [address] Grace Abdul ALT [Catalytic activity/Vol] 29 U/L Normal 14-59 [facility] Comment on above: Performed By: #### C VDTBH #### [facility] [address] [address] [address] Grace Abdul Anion gap [Moles/Vol] 14.8 mmol/L Normal [facility] Comment on above: Performed By: #### C VDTBH #### [facility] [address] [address] [address] Grace Abdul AST [Catalytic activity/Vol] 25 U/L Normal 15-37 [facility] Comment on above: Performed By: #### C VDTBH #### [facility] [address] [address] [address] Grace Abdul Bilirubin [Mass/Vol] 0.6 mg/dL Normal 0.2-1.0 [facility] Comment on above: Performed By: #### C VDTBH #### [facility] [address] [address] [address] Grace Abdul Calcium [Mass/Vol] 9.4 mg/dL Normal 8.5-10.1 [facility] Comment on above: Performed By: #### C VDTBH #### [facility] [address] [address] [address] Grace Abdul Chloride [Moles/Vol] 83 mmol/L Critically low 98-107 [facility] Comment on above: Performed By: #### C VDTBH #### [facility] [address] [address] [address] Grace Abdul CO2 [Moles/Vol] 24.4 mmol/L Normal 21.0-32.0 [facility] Comment on above: Performed By: #### C VDTBH #### [facility] [address] [address] [address] Grace Abdul Creatinine [Mass/Vol] 1.15 mg/dL Critically high 0.55-1.02 [facility] Comment on above: Performed By: #### C VDTBH #### [facility] [address] [address] [address] Grace Abdul EGFR-AF AUSTRIAN 55 mL/min/1.73m2 Critically low >=60 [facility] Comment on above: Performed By: #### C VDTBH #### [facility] [address] [address] [address] Grace Abdul EGFR-NON AF AUSTRIAN 45 mL/min/1.73m2 Critically low >=60 [facility] Comment on above: Performed By: #### C VDTBH #### [facility] [address] [address] [address] Grace Abdul Globulin (S) [Mass/Vol] 3.4 g/dL Normal [facility] Comment on above: Performed By: #### C VDTBH #### [facility] [address] [address] [address] Grace Abdul Glucose [Mass/Vol] 147 mg/dL Critically high 74-106 [facility] Comment on above: Performed By: #### C VDTBH #### [facility] [address] [address] [address] Grace Abdul Potassium [Moles/Vol] 3.2 mmol/L Critically low 3.5-5.1 [facility] Comment on above: Performed By: #### C VDTBH #### [facility] [address] [address] [address] Grace Abdul Protein [Mass/Vol] 7.5 g/dL Normal 6.4-8.2 [facility] Comment on above: Performed By: #### C VDTBH #### [facility] [address] [address] [address] Grace Abdul Urea nitrogen/Creatinine [Mass ratio] 21.7 mg/mg [facility] Comment on above: Performed By: #### C VDTBH #### [facility] [address] [address] [address] Grace Abdul PROF CHEM 8 (BAS METB)on Anion gap [Moles/Vol] 13.6 mmol/L Normal [facility] Comment on above: Performed By: #### C VDTBH #### [facility] [address] [address] [address] Grace Abdul Calcium [Mass/Vol] 8.8 mg/dL Normal 8.5-10.1 [facility] Comment on above: Performed By: #### C VDTBH #### [facility] [address] [address] [address] Grace Abdul Chloride [Moles/Vol] 88 mmol/L Critically low 98-107 [facility] Comment on above: Performed By: #### C VDTBH #### [facility] [address] [place] [address] Dr. Grace Abdul CO2 [Moles/Vol] 21.8 mmol/L Normal 21.0-32.0 [facility] Comment on above: Performed By: #### C VDTBH #### [facility] [address] [place] [address] Dr. Grace Abdul Creatinine [Mass/Vol] 1.11 mg/dL Critically high 0.55-1.02 [facility] Comment on above: Performed By: #### C VDTBH #### [facility] [address] [place] [address] Dr. Grace Abdul EGFR-AF AUSTRIAN 57 mL/min/1.73m2 Critically low >=60 [facility] Comment on above: Performed By: #### C VDTBH #### [facility] [address] [address] [address] Grace Abdul EGFR-NON AF AUSTRIAN 47 mL/min/1.73m2 Critically low >=60 [facility] Comment on above: Performed By: #### C VDTBH #### [facility] [address] [address] [address] Grace Abdul Glucose [Mass/Vol] 132 mg/dL Critically high 74-106 [facility] Comment on above: Performed By: #### C VDTBH #### [facility] [address] [place] [address] Dr. Grace Abdul Potassium [Moles/Vol] 3.4 mmol/L Critically low 3.5-5.1 [facility] Comment on above: Performed By: #### C VDTBH #### [facility] [address] [place] [address] Dr. Grace Abdul Sodium [Moles/Vol] 120 mmol/L Critically low 136-145 [facility] Comment on above: Result Comment: Test Repeated. Critical Value Verified Performed By: #### C VDTBH #### [facility] [address] [place] [address] Dr. Grace Abdul Urea nitrogen [Mass/Vol] 25.0 mg/dL Critically high 7.0-18.0 [facility] Comment on above: Performed By: #### C VDTBH #### [facility] [address] [place] [address] Dr. Grace Abdul Urea nitrogen/Creatinine [Mass ratio] 22.5 mg/mg Normal [facility] Comment on above: Performed By: #### C VDTBH #### [facility] [address] [place] [address] Dr. Grace Abdul PROTIMEon 11-15-2021 INR Coag (PPP) [Relative time] 0.94 {INR} Normal [facility] Comment on above: Performed By: #### C VDTBH #### [facility] [address] [place] [address] Dr. Grace Abdul INR GUIDELINES SEE BELOW Normal [facility] Comment on above: Result Comment: DURAN RED INR: 2.0 - 3.0 CONDITIONS NOT LISTED BELOW 2.5 - 3.5 FOR PROSTHETIC HEART VALVE REPLACEMENT 2.5 - 3.5 RECURRENT THROMBOSIS Performed By: #### C VDTBH #### [facility] [address] [place] [address] Dr. Grace Abdul PT Coag (PPP) [Time] 10.2 s Normal 9.0-11.6 [facility] Comment on above: Performed By: #### C VDTB #### [facility] [address] [address] [address] Grace Abdul XR ABD FLAT UP_PA Sergio 11-15 XR ABD FLAT UP_PA CH X-RAY ABDOMINAL WITH CHEST. INDICATION: Nausea and vomiting. COMPARISON: 11/11/2021 [...] JARET LINARES Date: 2021-11-15 13:56 Normal [facility] BNPon 11-11-2021 Natriuretic peptide B (Bld) [Mass/Vol] 546.0 pg/mL Normal <=1,800.0 [facility] Comment on above: Performed By: #### C MP, TSH, HSTROPN, BNP ####[facility] [id number] [address]Dr[address] Grace Abdul CBC AUTO DIFFon 11-11-2021 BASO # 0.0 103/ul Normal 0.0-0.1 [facility] Comment on above: Performed By: #### C BC #### [facility] [address] [address] [address] Grace Abdul Basophils/100 WBC (Bld) 0.3 % Normal 0.2-2.0 [facility] Comment on above: Performed By: #### C BC #### [facility] [address] [address] [address] Grace Abdul EO # 0.0 103/ul Normal 0.0-0.7 [facility] Comment on above: Performed By: #### C BC #### [facility] [address] [address] [address] Grace Abdul Eosinophils/100 WBC (Bld) 0.5 % Critically low 0.9-7.0 [facility] Comment on above: Performed By: #### C BC #### [facility] [address] [place] [address] Dr. Grace Abdul Erythrocyte distribution width (RBC) [Ratio] 12.9 % Normal 11.0-15.0 [facility] Comment on above: Performed By: #### C BC #### [facility] [address] [place] [address] Dr. Grace Abdul Hematocrit (Bld) [Volume fraction] 36.1 % Normal 36.0-48.0 [facility] Comment on above: Performed By: #### C BC #### [facility] [address] [place] [address] Dr. Grace Abdul Hemoglobin (Bld) [Mass/Vol] 12.3 g/dL Normal 12.0-16.0 [facility] Comment on above: Performed By: #### C BC #### [facility] [address] [place] [address] Dr. Grace Abdul IG # 0.01 10e3/ul Normal 0.00-0.03 [facility] Comment on above: Performed By: #### C BC #### [facility] [address] [place] [address] Dr. Grace Abdul IG % 0.3 % Normal 0.0-0.5 [facility] Comment on above: Performed By: #### C BC #### [facility] [address] [place] [address] Dr. Grace Abdul LYMPH # 0.6 103/ul Critically low 1.2-3.8 [facility] Comment on above: Performed By: #### C BC #### [facility] [address] [place] [address] Dr. Grace Abdul Lymphocytes/100 WBC (Bld) 14.8 % Critically low 20.5-60.0 [facility] Comment on above: Performed By: #### C BC #### [facility] [address] [place] [address] Dr. Grace Abdul MANUAL DIFF REQ NO Normal [facility] Comment on above: Performed By: #### C BC #### [facility] [address] [address] [address] Grace Abdul MCH (RBC) [Entitic mass] 31.5 pg Normal 26.7-34.0 [facility] Comment on above: Performed By: #### C BC #### [facility] [address] [address] [address] Grace Abdul MCHC (RBC) [Mass/Vol] 34.1 g/dL Normal 29.9-35.2 [facility] Comment on above: Performed By: #### C BC #### [facility] [address] [place] [address] Dr. Grace Abdul MCV (RBC) [Entitic vol] 92.6 fL Normal 81.0-99.0 [facility] Comment on above: Performed By: #### C BC #### [facility] [address] [place] [address] Dr. Grace Abdul MONO # 0.5 103/ul Normal 0.3-0.8 [facility] Comment on above: Performed By: #### C BC #### [facility] [address] [place] [address] Dr. Grace Abdul Monocytes/100 WBC (Bld) 13.5 % Critically high 1.7-12.0 [facility] Comment on above: Performed By: #### C BC #### [facility] [address] [place] [address] Dr. Grace Abdul NEUT # 2.7 103/ul Normal 1.4-6.5 [facility] Comment on above: Performed By: #### C BC #### [facility] [address] [place] [address] Dr. Grace Abdul Neutrophils/100 WBC (Bld) 70.6 % Normal 43.0-75.0 [facility] Comment on above: Performed By: #### C BC #### [facility] [address] [place] [address] Dr. Grace Abdul Platelet mean volume (Bld) [Entitic vol] 9.2 fL Critically low 9.5-13.5 [facility] Comment on above: Performed By: #### C BC #### [facility] [address] [address] [address] Grace Abdul PLT 279 103/ul Normal 150-450 [facility] Comment on above: Performed By: #### C BC #### [facility] [address] [address] [address] Grace Abdul RBC 3.90 106/ul Critically low 4.20-5.40 [facility] Comment on above: Performed By: #### C BC #### [facility] [address] [address] [address] Grace Abdul WBC 3.9 103/ul Critically low 4.0-11.0 [facility] Comment on above: Performed By: #### C BC #### [facility] [address] [place] [address] Dr. Grace Abdul PROF 14(COMP METB)on 022 Albumin [Mass/Vol] 3.3 g/dL Critically low 3.4-5.0 [facility] Comment on above: Performed By: #### C MP, TSH, HSTROPN, BNP #### [facility] [address] [place] [address] Dr. Grace Abdul Albumin/Globulin [Mass ratio] 1.2 {ratio} Normal [facility] Comment on above: Performed By: #### C MP, TSH, HSTROPN, BNP #### [facility] [address] [place] [address] Dr. Grace Abdul ALP [Catalytic activity/Vol] 60 U/L Normal 46-116 [facility] Comment on above: Performed By: #### C MP, TSH, HSTROPN, BNP #### [facility] [address] [place] [address] Dr. Grace Abdul ALT [Catalytic activity/Vol] 26 U/L Normal 14-59 [facility] Comment on above: Performed By: #### C MP, TSH, HSTROPN, BNP #### [facility] [address] [place] [address] Dr. Grace Abdul Anion gap [Moles/Vol] 14.8 mmol/L Normal [facility] Comment on above: Performed By: #### C MP, TSH, HSTROPN, BNP #### [facility] [address] [place] [address] Dr. Grace Abdul AST [Catalytic activity/Vol] 20 U/L Normal 15-37 [facility] Comment on above: Performed By: #### C MP, TSH, HSTROPN, BNP #### [facility] [address] [place] [address] Dr. Grace Abdul Bilirubin [Mass/Vol] 0.3 mg/dL Normal 0.2-1.0 [facility] Comment on above: Performed By: #### C MP, TSH, HSTROPN, BNP #### [facility] [address] [place] [address] Dr. Grace Abdul Calcium [Mass/Vol] 8.2 mg/dL Critically low 8.5-10.1 [facility] Comment on above: Performed By: #### C MP, TSH, HSTROPN, BNP #### [facility] [address] [place] [address] Dr. Grace Abdul Chloride [Moles/Vol] 100 mmol/L Normal 98-107 [facility] Comment on above: Performed By: #### C MP, TSH, HSTROPN, BNP #### [facility] [address] [place] [address] Dr. Grace Abdul CO2 [Moles/Vol] 23.8 mmol/L Normal 21.0-32.0 [facility] Comment on above: Performed By: #### C MP, TSH, HSTROPN, BNP #### [facility] [address] [place] [address] Dr. Grace Abdul Creatinine [Mass/Vol] 1.27 mg/dL Critically high 0.55-1.02 [facility] Comment on above: Performed By: #### C MP, TSH, HSTROPN, BNP #### [facility] [address] [place] [address] Dr. Grace Abdul EGFR-AF AUSTRIAN 49 mL/min/1.73m2 Critically low >=60 [facility] Comment on above: Performed By: #### C MP, TSH, HSTROPN, BNP #### [facility] [address] [place] [address] Dr. Grace Abdul EGFR-NON AF AUSTRIAN 40 mL/min/1.73m2 Critically low >=60 [facility] Comment on above: Performed By: #### C MP, TSH, HSTROPN, BNP #### [facility] [address] [place] [address] Dr. Grace Abdul Globulin (S) [Mass/Vol] 2.7 g/dL Normal [facility] Comment on above: Performed By: #### C MP, TSH, HSTROPN, BNP #### [facility] [address] [place] [address] Dr. Grace Abdul Glucose [Mass/Vol] 116 mg/dL Critically high 74-106 [facility] Comment on above: Performed By: #### C MP, TSH, HSTROPN, BNP #### [facility] [address] [place] [address] Dr. Grace Abdul Potassium [Moles/Vol] 3.6 mmol/L Normal 3.5-5.1 [facility] Comment on above: Performed By: #### C MP, TSH, HSTROPN, BNP #### [facility] [address] [place] [address] Dr. Grace Abdul Protein [Mass/Vol] 6.0 g/dL Critically low 6.4-8.2 Th [facility] Comment on above: Performed By: #### C MP, TSH, HSTROPN, BNP #### [facility] [address] [place] [address] Dr. Grace Abdul Sodium [Moles/Vol] 135 mmol/L Critically low 136-145 [facility] Comment on above: Performed By: #### C MP, TSH, HSTROPN, BNP #### [facility] [address] [place] [address] Dr. Grace Abdul Urea nitrogen [Mass/Vol] 25.0 mg/dL Critically high 7.0-18.0 [facility] Comment on above: Performed By: #### C MP, TSH, HSTROPN, BNP #### [facility] [address] [place] [address] Dr. Grace Abdul Urea nitrogen/Creatinine [Mass ratio] 19.7 mg/mg Normal [facility] Comment on above: Performed By: #### C MP, TSH, HSTROPN, BNP #### [facility] [address] [place] [address] Dr. Grace Abdul PROTIMEon 11-11-2021 INR Coag (PPP) [Relative time] 0.95 {INR} Normal [facility] Comment on above: Performed By: #### B MP #### [facility] [address] [place] [address] Dr. Grace Abdul INR GUIDELINES SEE BELOW Normal [facility] Comment on above: Result Comment: DURAN RED INR: 2.0 - 3.0 CONDITIONS NOT LISTED BELOW 2.5 - 3.5 FOR PROSTHETIC HEART VALVE REPLACEMENT 2.5 - 3.5 RECURRENT THROMBOSIS Performed By: #### B MP #### [facility] [address] [place] [address] Dr. Grace Abdul PT Coag (PPP) [Time] 10.3 s Normal 9.0-11.6 [facility] Comment on above: Performed By: #### B MP #### [facility] [address] [place] [address] Dr. Grace Abdul PTTon 11-11-2021 aPTT Coag (Bld) [Time] 21.3 s Critically low 22.3-36.2 [facility] Comment on above: Performed By: #### B MP #### [facility] [address] [place] [address] Dr. Grace Abdul TROPONIN, HIGH SENSITIVITYon 11-11-2021 HSTROP 6.5 pg/mL Normal 4.0-51.3 [facility] Comment on above: Result Comment: CUT- OFF POINTS HAVE BEEN ESTABLISHED BASED ON THE FOURTH UNIVERSAL DEFINITIONS OF MYOCARDIAL INFARCTION. THE UPPER REFERENCE LIMIT (URL) OF TROPONIN, DEFINED THE 99TH PERCENTILE OF cTnI DISTRIBUTION IN A REFERENCE POPULATION, HAS BEEN CONFIRMED THE DECISION THRESHOLD FOR DE DIAGNOSIS. Performed By: #### C MP, TSH, HSTROPN, BNP #### [facility] [id number] Grace Abdul TSHon 11-11-2021 TSH 2.140 uIU/mL Normal 0.358-3.740 [facility] Comment on above: Performed By: #### C MP, TSH, HSTROPN, BNP ####[facility] [id number] [place], [place] [address]RdDr. Grace Abdul XR CHEST 1 Von 11-11-2021 [...] KRANTHI CONNORS Date: 2021-11-11 13:34 Normal [facility] CARDIAC JOVITA ADMITon 022 CK [Catalytic activity/Vol] 89 U/L Normal 26-192 [facility] Comment on above: Performed By: #### C VDTBH #### [facility] [id number] Grace Abdul CK.MB [Mass/Vol] 1.92 ng/mL Normal <=3.60 [facility] Comment on above: Performed By: #### C VDTBH #### [facility] [id number] Grace Abdul HSTROP 5.7 pg/mL Normal 4.0-51.3 [facility] Comment on above: Result Comment: CUT- OFF POINTS HAVE BEEN ESTABLISHED BASED ON THE FOURTH UNIVERSAL DEFINITIONS OF MYOCARDIAL INFARCTION. THE UPPER REFERENCE LIMIT (URL) OF TROPONIN, DEFINED THE 99TH PERCENTILE OF cTnI DISTRIBUTION IN A REFERENCE POPULATION, HAS BEEN CONFIRMED THE DECISION THRESHOLD FOR DE DIAGNOSIS. Performed By: #### C VDTBH #### [facility] [address] [place] [address] Dr. Grace Abdul JOHNNA 86 ng/mL Critically high 9-82 [facility] Comment on above: Performed By: #### C VDTBH #### [facility] [address] [place] [address] Dr. Grace Abdul CBC AUTO DIFFon 09-13-2021 BASO # 0.0 103/ul Normal 0.0-0.1 [facility] Comment on above: Performed By: #### C VDTBH #### [facility] [address] [place] [address] Dr. Grace Abdul Basophils/100 WBC (Bld) 0.5 % Normal 0.2-2.0 [facility] Comment on above: Performed By: #### C VDTBH #### [facility] [address] [place] [address] Dr. Grace Abdul EO # 0.0 103/ul Normal 0.0-0.7 [facility] Comment on above: Performed By: #### C VDTBH #### [facility] [address] [place] [address] Dr. Grace Abdul Eosinophils/100 WBC (Bld) 0.7 % Critically low 0.9-7.0 [facility] Comment on above: Performed By: #### C VDTBH #### [facility] [address] [place] [address] Dr. Grace Abdul Erythrocyte distribution width (RBC) [Ratio] 13.2 % Normal 11.0-15.0 [facility] Comment on above: Performed By: #### C VDTBH #### [facility] [address] [place] [address] Dr. Grace Abdul Hematocrit (Bld) [Volume fraction] 34.8 % Critically low 36.0-48.0 [facility] Comment on above: Performed By: #### C VDTBH #### [facility] [address] [place] [address] Dr. Grace Abdul Hemoglobin (Bld) [Mass/Vol] 11.9 g/dL Critically low 12.0-16.0 [facility] Comment on above: Performed By: #### C VDTBH #### [facility] [address] [place] [address] Dr. Grace Abdul IG # 0.01 10e3/ul Normal 0.00-0.03 [facility] Comment on above: Performed By: #### C VDTBH #### [facility] [address] [place] [address] Dr. Grace Abdul IG % 0.2 % Normal 0.0-0.5 [facility] Comment on above: Performed By: #### C VDTBH #### [facility] [address] [place] [address] Dr. Grace Abdul LYMPH # 0.6 103/ul Critically low 1.2-3.8 [facility] Comment on above: Performed By: #### C VDTBH #### [facility] [address] [place] [address] Dr. Grace Abdul Lymphocytes/100 WBC (Bld) 14.2 % Critically low 20.5-60.0 [facility] Comment on above: Performed By: #### C VDTBH #### [facility] [address] [place] [address] Dr. Grace Abdul MANUAL DIFF REQ NO Normal [facility] Comment on above: Performed By: #### C VDTBH #### [facility] [address] [place] [address] Dr. Grace Abdul MCH (RBC) [Entitic mass] 31.5 pg Normal 26.7-34.0 [facility] Comment on above: Performed By: #### C VDTBH #### [facility] [address] [place] [address] Dr. Grace Abdul MCHC (RBC) [Mass/Vol] 34.2 g/dL Normal 29.9-35.2 [facility] Comment on above: Performed By: #### C VDTBH #### [facility] [address] [place] [address] Dr. Grace Abdul MCV (RBC) [Entitic vol] 92.1 fL Normal 81.0-99.0 [facility] Comment on above: Performed By: #### C VDTBH #### [facility] [address] [place] [address] Dr. Grace Abdul MONO # 0.7 103/ul Normal 0.3-0.8 [facility] Comment on above: Performed By: #### C VDTBH #### [facility] [address] [place] [address] Dr. Grace Abdul Monocytes/100 WBC (Bld) 15.6 % Critically high 1.7-12.0 [facility] Comment on above: Performed By: #### C VDTBH #### [facility] [address] [place] [address] Dr. Grace Abdul NEUT # 3.0 103/ul Normal 1.4-6.5 [facility] Comment on above: Performed By: #### C VDTBH #### [facility] [address] [place] [address] Dr. Grace Abdul Neutrophils/100 WBC (Bld) 68.8 % Normal 43.0-75.0 [facility] Comment on above: Performed By: #### C VDTBH #### [facility] [address] [place] [address] Dr. Grace Abdul Platelet mean volume (Bld) [Entitic vol] 9.5 fL Normal 9.5-13.5 [facility] Comment on above: Performed By: #### C VDTBH #### [facility] [address] [place] [address] Dr. Grace Abdul PLT 303 103/ul Normal 150-450 [facility] Comment on above: Performed By: #### C VDTBH #### [facility] [address] [place] [address] Dr. Grace Abdul RBC 3.78 106/ul Critically low 4.20-5.40 [facility] Comment on above: Performed By: #### C VDTBH #### [facility] [address] [place] [address] [id number] [address] Grace Abdul WBC 4.4 103/ul Normal 4.0-11.0 [facility] Comment on above: Performed By: #### C [facility] #### [facility] [id number] Grace Abdul CT HEAD WO CONon [...] KRANTHI CONNORS Date: 2021-09-13 13:24 Normal [facility] Covid-19 PCR ([facility])on 08-22 SARS-CoV-2 (COVID-19) RNA LUISITO+probe Ql (Unsp spec) Not detected Normal NOT DETECTED [facility] Comment on above: Result Comment: When [...] for this test is supported by the [employer] of Health and Human Service's declaration that [...] used). Performed By: #### C VDTB #### [facility] [address] [place] [address] Dr. Grace HERNANDEZ URINE PROFILEon 2 Bilirubin Ql (U) Negative Normal NEGATIVE [facility] Comment on above: Performed By: #### B MP #### [facility] [address] [place] [address] Dr. Grace Abdul Clarity (U) CLEAR Normal CLEAR [facility] Comment on above: Performed By: #### B MP #### [facility] [address] [place] [address] Dr. Grace Abdul Color (U) LT. YELLOW Normal YELLOW [facility] Comment on above: Performed By: #### B MP #### [facility] [address] [place] [address] Dr. Grace HIGGINS A micrscopic examination will be performed if indicated. Normal [facility] Comment on above: Performed By: #### B MP #### [facility] [address] [place] [address] Dr. Grace Abdul Glucose Ql (U) Negative Normal NEGATIVE [facility] Comment on above: Performed By: #### B MP #### [facility] [address] [place] [address] Dr. Grace Abdul Hemoglobin Ql (U) Negative Normal NEGATIVE [facility] Comment on above: Performed By: #### B MP #### [facility] [address] [place] [address] Dr. Grace Abdul Ketones Ql (U) TRACE Abnormal NEGATIVE [facility] Comment on above: Performed By: #### B MP #### [facility] [address] [place] [address] Dr. Grace Abdul LEUKOCYTES TRACE Abnormal NEGATIVE [facility] Comment on above: Performed By: #### B MP #### [facility] Laboratory [address] [place] [address] Dr. Grace Abdul Nitrite Ql (U) Negative Normal NEGATIVE [facility] Comment on above: Performed By: #### B MP #### [facility] [address] [address] [address] Grace Abdul pH (U) 8.0 [pH] Normal 5-9 [facility] Comment on above: Performed By: #### B MP #### [facility] [address] [address] [address] Garce Abdul SPEC GRAVITY 1.015 Normal 1.005-<=1.025 [facility] Comment on above: Performed By: #### B MP #### [facility] [address] [address] [address] Grace Abdul UA PROTEIN Negative Normal NEGATIVE/ TRACE [facility] Comment on above: Performed By: #### B MP #### [facility] [address] [place] [address] Dr. Grace Abdul UR MICRO IND INDICATED Normal [facility] Comment on above: Performed By: #### B MP #### [facility] [address] [place] [address] Dr. Grace Abdul Urobilinogen Qn (U) 0.2 {Ashley'U}/dL Normal 0.2 - 1. 0 [facility] Comment on above: Performed By: #### B MP #### [facility] [address] [place] [address] Dr. Grace Abdul PROF 14(COMP METB)on 022 Albumin [Mass/Vol] 3.8 g/dL Normal 3.4-5.0 [facility] Comment on above: Performed By: #### C VDTBH #### [facility] [address] [place] [address] Dr. Grace Abdul Albumin/Globulin [Mass ratio] 1.4 {ratio} Normal [facility] Comment on above: Performed By: #### C VDTBH #### [facility] [address] [place] [address] Dr. Grace Abdul ALP [Catalytic activity/Vol] 53 U/L Normal 46-116 [facility] Comment on above: Performed By: #### C VDTBH #### [facility] [address] [address] [address] Grace Abdul ALT [Catalytic activity/Vol] 20 U/L Normal 14-59 [facility] Comment on above: Performed By: #### C VDTBH #### [facility] [address] [place] [address] Dr. Grace Abdul Anion gap [Moles/Vol] 12.0 mmol/L Normal [facility] Comment on above: Performed By: #### C VDTBH #### [facility] [address] [address] [address] Grace Abdul AST [Catalytic activity/Vol] 18 U/L Normal 15-37 [facility] Comment on above: Performed By: #### C VDTBH #### [facility] [address] [place] [address] Dr. Grace Abdul Bilirubin [Mass/Vol] 0.4 mg/dL Normal 0.2-1.0 [facility] Comment on above: Performed By: #### C VDTBH #### [facility] [address] [place] [address] Dr. Grace Abdul Calcium [Mass/Vol] 9.5 mg/dL Normal 8.5-10.1 [facility] Comment on above: Performed By: #### C VDTBH #### [facility] [address] [place] [address] Dr. rGace Abdul Chloride [Moles/Vol] 99 mmol/L Normal 98-107 [facility] Comment on above: Performed By: #### C VDTBH #### [facility] [address] [place] [address] Dr. Grace Abdul CO2 [Moles/Vol] 28.1 mmol/L Normal 21.0-32.0 [facility] Comment on above: Performed By: #### C VDTBH #### [facility] [address] [place] [address] Dr. Grace Abdul Creatinine [Mass/Vol] 1.25 mg/dL Critically high 0.55-1.02 [facility] Comment on above: Performed By: #### C VDTBH #### [facility] [address] [address] [address] Grace Abdul EGFR-AF AUSTRIAN 50 mL/min/1.73m2 Critically low >=60 [facility] Comment on above: Performed By: #### C VDTBH #### [facility] [address] [address] [address] Grace Abdul EGFR-NON AF AUSTRIAN 41 mL/min/1.73m2 Critically low >=60 [facility] Comment on above: Performed By: #### C VDTBH #### [facility] [address] [address] [address] Grace Abdul Globulin (S) [Mass/Vol] 2.7 g/dL Normal [facility] Comment on above: Performed By: #### C VDTBH #### [facility] [address] [address] [address] Grace Abdul Glucose [Mass/Vol] 131 mg/dL Critically high 74-106 [facility] Comment on above: Performed By: #### C VDTBH #### [facility] [address] [address] [address] Grace Abdul Potassium [Moles/Vol] 4.1 mmol/L Normal 3.5-5.1 [facility] Comment on above: Performed By: #### C VDTBH #### [facility] [address] [address] [address] Grace Abdul Protein [Mass/Vol] 6.5 g/dL Normal 6.4-8.2 [facility] Comment on above: Performed By: #### C VDTBH #### [facility] [address] [address] [address] Grace Abdul Sodium [Moles/Vol] 135 mmol/L Critically low 136-145 [facility] Comment on above: Performed By: #### C VDTBH #### [facility] [address] [address] [address] Grace Abdul Urea nitrogen [Mass/Vol] 33.0 mg/dL Critically high 7.0-18.0 [facility] Comment on above: Performed By: #### C VDTBH #### [facility] [address] [place] [address] Dr. Grace Abdul Urea nitrogen/Creatinine [Mass ratio] 26.4 mg/mg Normal [facility] Comment on above: Performed By: #### C VDTBH #### [facility] [address] [place] [address] Dr. Grace Abdul URINE MICROSCOPIC ONLYon BACTERIA NONE SEEN Normal NONE SEEN [facility] Comment on above: Performed By: #### C BC #### [facility] [address] [place] [address] Dr. Grace Abdul Bacteria identified Cx Nom (U) NOT INDICATED Normal [facility] Comment on above: Performed By: #### C BC #### [facility] [address] [place] [address] Dr. Grace Abdul CAST NONE SEEN Normal NONE SEEN [facility] Comment on above: Performed By: #### C BC #### [facility] [address] [place] [address] Dr. Grace Abdul Crystals LM Nom (Urine sed) NONE SEEN Normal NONE SEEN [facility] Comment on above: Performed By: #### C BC #### [facility] [address] [place] [address] Dr. Grace Abdul Epithelial cells LM Ql (Urine sed) FEW Abnormal NONE SEEN /RARE [facility] Comment on above: Performed By: #### C BC #### [facility] [address] [place] [address] Dr. Grace Abdul MUCOUS NONE SEEN Normal NONE SEEN [facility] Comment on above: Performed By: #### C BC #### [facility] [address] [place] [address] Dr. Grace Abdul RBC 0-2 Normal 0-2 [facility] Comment on above: Performed By: #### C BC #### [facility] [address] [place] [address] Dr. Grace Abdul WBC 0-2 Abnormal NONE SEEN [facility] Comment on above: Performed By: #### C BC #### [facility] [id number] Grace Abdul XR CHEST 1 Von [...] KRANTHI CONNORS Date: 2021-09-13 13:19 Normal [facility] CERV SP W/OBLS/FLEX/EXT 6 OR >on 12-12-2020 CERV SP W/OBLS/FLEX/EXT 6 OR > STUDY: CERV SP W/OBLS/FLEX/EXT 6 OR >; 12/12/2020 9:40 am INDICATION: NECK PAIN. COMPARISON: None. ACCESSION NUMBER(S): [id number] ORDERING CLINICIAN: Aiden Younger TECHNIQUE: AP, lateral, [...] findings. Dense left carotid artery calcifications. Normal [facility] Vital Signs Date Time Vital Sign [...] Carolyn Vanegas MD Work Phone: [facility] 09-21-2022 12:51-0400 Heart rate 67 /min Carolyn Vanegas MD Work Phone: [facility] 09-21-2022 12:51-0400 Systolic blood pressure 153 mm[Hg] Carolyn Vanegas MD Work Phone: [facility] 05-14-2022 14:24-0400 Diastolic blood pressure 87 mm[Hg] Marty Dozier DO Work Phone: [facility] 05-14-2022 14:24-0400 Heart rate 72 /min Marty Dozier DO Work Phone: [facility] 05-14-2022 14:24-0400 Systolic blood pressure 158 mm[Hg] Marty Dozier DO Work Phone: [facility] 05-14-2022 14:22-0400 Body height 152.4 cm Marty Galavizis DO Work Phone: [facility] 05-14-2022 14:22-0400 Body weight 76.39 kg Marty Dozier DO Work Phone: [facility] 05-14-2022 14:22-0400 SaO2% (BldA) [Mass fraction] 99 % Marty Dozier DO Work Phone: [facility] Encounters Encounter Date Encounter Type Care Provider Facility Start: 02-26-2025 ambulatory Jacinta Mercedes Facility[facility] Start: 11-14-2024 End: 11-14-2024 ambulatory Jacinta Mercedes Facility:[facility] Start: 11-14-2024 End: 11-14-2024 Patient encounter procedure Jacinta Long [facility] Start: 10-10-2024 End: 10-10-2024 ambulatory Sharon Calix Facility:[facility] Start: 10-10-2024 End: 10-10-2024 ambulatory Sharon Calix Facility:[facility] Start: 10-10-2024 End: 10-10-2024 Patient encounter procedure Sharon Calix [facility] Start: 10-01-2024 End: 10-01-2024 ambulatory Lyn Quiñones MD Facility:[facility] Start: 09-25-2024 ambulatory Jacinta Long Facility:[facility] Start: 09-22-2024 End: 09-22-2024 Patient encounter procedure Galina Bach MD -[facility] Work Phone: Start: 09-22-2024 End: 09-22-2024 ambulatory Galina Rogers [facility] Work Phone: Start: 06-18-2024 End: 06-18-2024 ambulatory Lyn Quiñones MD Facility:[facility] Start: 05-28-2024 End: 05-28-2024 ambulatory Lyn Quiñones MD Facility:[facility] Start: 04-30-2024 End: 04-30-2024 ambulatory Lyn Quiñones MD Facility:[facility] Start: 02-06-2024 End: 02-06-2024 ambulatory Lyn Quiñones MD Facility:[facility] Start: 01-16-2024 End: 01-16-2024 [facility]ulatory [facility] Start: 12-06-2023 End: 12-06-2023 Patient encounter procedure Armando Morales DO Work Phone: [facility] Comment on above: Encounter for gyneco logical examination without abnormal finding; Encounter for Papanicolaou smear of vagina; Breast cancer screening by mammogram Start: 12-06-2023 End: 12-06-2023 Patient encounter status Armando Morales DO Work Phone: 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 Facility:[facility] Start: 04-13-2022 End: 04-13-2022 ambulatory [...] Patient encounter DEFAULT PHYSICIAN Facility:[facility] Procedures Date Procedure Procedure Detail Performing Clinician Appendix absent (finding) Ka thy Lue Arthroscopy Sharon Lue Capsulotomy of poste rior lens capsule Jacinta Mercedes Cholecystectomy Jacinta Mercedes Hysterectomy Sharon Lue Laboratory test resu lt abnormal Laboratory test result abnormal Sharon Lue Left breast structur e (body structure) Sharon Lue Comment on above: benign tumor Right breast structu re (body structure) Jacinta Cooleya Tonsillectomy Sharon Lue Total knee replacement Rajwinder Long Urinary bladder stru cture (body structure) Sharon Lue Plan of Treatment Date Care Activity Detail Author Start: 12-10-2025 End: 12-10-2025 Patient encounter procedure 12/10/2025 11:30 AM EDT Office Visit [facility] [address] [place] [address] Armando Morales, [address] [place] [address] [facility] Start: 09-21-2024 Bacteria identified in Urine by Culture Urine Culture [facility] Start: 09-21-2024 Urine culture [facility] Start: 10-23-2023 Influenza vaccination Influenza Vacc ine (#1) [facility] Start: 10-22-2022 Influenza vaccination INFLUENZA (#1) [facility] Start: 04-11-2022 COVID-19 VACCINE (6 - Moderna series) COVID-19 VACCINE (6 - Moderna series) [facility] Start: 02-21-2022 ADVANCE DIRECTIVE DISCUSSION ADVANCE DIRECTIVE DISCUSSION [facility] Start: 02-21-2022 DEPRESSION ASSESSMENT DEPRESSION ASS ESSMENT [facility] Start: 11-12-2017 Pneumococcal Vaccine : 65+ Years (2 of 2 - PPSV23 or PCV20) Pneumococcal Vaccine: 65+ Years (2 of 2 - PPSV23 or PCV20) [facility] Start: 11-12-2017 PNEUMOCOCCAL: 65+ (2 - PPSV23 if available, else PCV20) PNEUMOCOCCAL: 65+ (2 - PPSV23 if available, else PCV20) [facility] Start: 11-12-2017 PNEUMOCOCCAL: 65+ (2 - PPSV23 or PCV20) PNEUMOCOCCAL: 65+ (2 - PPSV23 or PCV20) [facility] Start: 07-22-2017 SHINGRIX VACCINE (2 of 3) SHINGRIX VACCINE (2 of 3) [facility] Start: 04-30-2004 BONE DENSITY BONE DENSITY [facility] Start: 04-30-1984 DIABETES SCREEN DIABETES SCREEN [facility] Start: 04-30-1958 Urine microalbumin profile DTAP,TDAP,TD (1 - Tdap) [facility] IGP,rfxAptima HPV all,16/18,45 IGP,rfxAptima HPV all,16/18,45 Pathology and Cytology Routine Encounter for Papanicolaou smear of vagina Ordered: 12/06/2023 [facility] Work Phone: Comment on above: Ordered: 12/06/2023 Immunizations Immunization Date Immunization Notes Care Provider Fa cility 09-22-2024 zoster vaccine recombinant Jacinta Long [facility] 07-23-2024 tetanus toxoid, redu chad diphtheria toxoid, and acellular pertussis vaccine, adsorbed Jacinta Long [facility] 12-05-2023 influenza virus vaccine, unspecified formulation Jacinta Long [facility] 10-25-2022 influenza virus vaccine, unspecified formulation Jacinta Mercedes [facility] 10-02-2022 SARS-CoV-2 (COVID-19 ) [id number] Jacinta Long [facility] Comment on above: Result Comment: 2024: [id number] 12-09-2021 Moderna Bivalent Booster Vaccination Armando Flaca DO Work Phone: [facility] Comment on above: Result Comment: 2024: [id number] 12-02-2021 Influenza, injectabl e, Madin Carmina Canine Kidney, preservative free, quadrivalent Martylidya Dozier DO Work Phone: [facility] 12-02-2021 influenza virus vaccine, unspecified formulation Armando Morales DO Work Phone: [facility] 06-04-2021 SARS-CoV-2 (COVID-19 ) mRNA-1273 vaccine Jacinta Long [facility] Comment on above: Result Comment: 2024: [id number] 12-13-2020 SARS-CoV-2 (COVID-19 ) mRNA-1273 vaccine Jacinta Long [facility] 11-28-2020 influenza virus vaccine, unspecified formulation Marty Mendbud DO Work Phone: [facility] 11-28-2020 influenza, unspecifi ed formulation Jacinta Mercedes [facility] 04-07-2020 SARS-CoV-2 (COVID-19 ) mRNA-1273 vaccine Jacinta Mercedes [facility] 03-10-2020 SARS-CoV-2 (COVID-19 ) [id number] vaccine Jacinta Long [facility] 11-29-2019 influenza virus vaccine, unspecified formulation Jacinta Long [facility] 11-29-2019 Seasonal trivalent influenza vaccine, adjuvanted, preservative free Marty Dozier DO Work Phone: [facility] 05-27-2017 zoster vaccine, live Marty Lizzy DO Work Phone: [facility] 11-12-2016 pneumococcal conjuga te vaccine, 13 valent Marty Dozier DO Work Phone: [facility] Payers Date Payer Category Payer Unknown [id number] 2016 Private Health Insurance [id number] 2004 Medicare [id number] 2004 Unknown 1959 Medicare [id number] 1959 Self-pay 1959 Unknown [id number] 1939 Unknown [id number] 2.16.84 0.1.276695.3.579.2.593 1939 Unknown [id number] 2.16.84 0.1.082133.3.579.2.593 1939 Unknown [id number] 2.16.84 0.1.043062.3.579.2.593 1939 Unknown [id number] 2.16.84 0.1.222599.3.579.2.593 1939 Unknown [id number] 2.16.84 0.1.986816.3.579.2.593 1939 Unknown [id number] 2.16.84 0.1.209120.3.579.2.593 1939 Unknown [id number] 2.16.84 0.1.944380.3.579.2.593 1939 Unknown [id number] 2.16.84 0.1.075628.3.579.2.593 1939 Unknown [id number] 2.16.84 0.1.553409.3.579.2.593 1939 Unknown [id number] 2.16.84 0.1.673233.3.579.2.593 1939 Unknown [id number] 2.16.84 0.1.093530.3.579.2.593 1939 Unknown [id number] 2.16.84 0.1.353949.3.579.2.593 1939 Unknown [id number] 2.16.84 0.1.007238.3.579.2.593 1939 Unknown [id number] 2.16.84 0.1.049885.3.579.2.593 1939 Unknown [id number] 2.16.84 0.1.641674.3.579.2.593 1939 Unknown [id number] 2.16.84 0.1.037442.3.579.2.593 1939 Unknown [id number] 2.16.84 0.1.709693.3.579.2.593 1939 Unknown [id number] 2.16.84 0.1.225003.3.579.2.593 1939 Unknown [id number] 2.16.84 0.1.485723.3.579.2.593 1939 Unknown [id number] 2.16.84 0.1.836146.3.579.2.593 1939 Unknown [id number] 2.16.84 0.1.513806.3.579.2.593 1939 Unknown [id number] 2.16.84 0.1.405811.3.579.2.593 1939 Unknown [id number] 2.16.84 0.1.872312.3.579.2.593 1939 Unknown [id number] 2.16.84 0.1.264945.3.579.2.593 1939 Unknown [id number] 2.16.84 0.1.419352.3.579.2.593 1939 Unknown [id number] 2.16.84 0.1.011633.3.579.2.1259 1939 Unknown [id number] 2.16.84 0.1.296998.3.579.2.1259 1939 Unknown [id number] 2.16.84 0.1.876400.3.579.2.1259 1939 Unknown [id number] 2.16. 840.1.684505.3.579.2.196 1939 Unknown [id number] 2.16. 840.1.627656.3.579.2.196 1939 Unknown [id number] 2.16. 840.1.070850.3.579.2.196 1939 Unknown [id number] 2.16. 840.1.990548.3.579.2.196 1939 Unknown [id number] 2.16. 840.1.487889.3.579.2.196 1939 Unknown [id number] 2.16. 840.1.521350.3.579.2.196 1939 Unknown [id number] 2.16.8 40.1.044757.3.579.2.727 1939 Unknown [id number] 2.16.8 40.1.307591.3.579.2.727 1940 Unknown [id number] 2.16.8 40.1.929324.3.579.2.727 1939 Unknown [id number] 2.16.8 40.1.980839.3.579.2.727 1939 Unknown [id number] 2.16.8 40.1.609543.3.579.2.727 1939 Unknown [id number] 2.16.8 40.1.468551.3.579.2.727 Unknown [id number] 2.16.8 40.1.622212.3.579.2.531 Social History Date Type Detail Facility Start: 05-14-2022 End: 11-14-2024 Tobacco smoking status NHIS Never smoked tobacco [facility] Start: 05-14-2022 End: 08-02-2022 Tobacco use and exposure Smokeless tobacco non-user [facility] Start: 05-14-2022 End: 12-06-2023 Alcohol intake Lifetime non-drinker (finding) [facility] Start: 1940 Sex Assigned At Not on file C [facility] Start: 09-21-2022 End: 12-06-2023 History of Social function [facility] Start: 09-21-2022 End: 12-06-2023 Tobacco use panel [facility] Adult Depression Screening Assessment 2 [facility] How often to you hav e a drink containing alcohol? Never [facility] Tobacco smoking stat us NHIS Unknown if ever smoked [facility] Work Phone: Start: 07-07-2016 Sex Female (finding) [facility] Start: 1940 Sex Assigned At Female F [facility] Sexual Orientation [facility] Clinical Notes 09-30-2021 to 11-14-2024 Marlena Person MA - 12/06/2023 11:30 AM EDTPatiCarolyn Ulloa MD - 09/21/2022 12:43 PM Naa Alves PA-C - 08/26/2022 11:45 AM EDT Note Date & Type Note Facility 11-14-2024 Hospital Discharge instructions Patient Education 11/14/2024 16:17:11 Overactive Bladder, Adult Overactive Bladder, Adult Overactive bladder is a condition in which a person has a sudden and frequent need to urinate. A person might also leak urine if he or she cannot get to the bathroom fast enough (urinary incontinence). Sometimes, symptoms can interfere with work or social activities. What are the causes? Overactive bladder is associated with poor nerve signals between your bladder and your brain. Your bladder may get the signal to empty before it is full. You may also have very sensitive muscles that make your bladder squeeze too soon. This condition may also be caused by other factors, such as: Medical conditions: ?Urinary tract infection. ?Infection of nearby tissues. ?Prostate enlargement. ?Bladder stones, inflammation, or tumors. ?Diabetes. ?Muscle or nerve weakness, especially from these conditions: ?A spinal cord injury. ?Stroke. ?Multiple sclerosis. ?Parkinson's disease. Other causes: ?Surgery on the uterus or urethra. ?Drinking too much caffeine or alcohol. ?Certain medicines, especially those that eliminate extra fluid in the body (diuretics). ?Constipation. What increases the risk? You may be at greater risk for overactive bladder if you: Are an older adult. Smoke. Are going through menopause. Have prostate problems. Have a neurological disease, such as stroke, dementia, Parkinson's disease, or multiple sclerosis (MS). Eat or drink alcohol, spicy food, caffeine, and other things that irritate the bladder. Are overweight or obese. What are the signs or symptoms? Symptoms of this condition include a sudden, strong urge to urinate. Other symptoms include: Leaking urine. Urinating 8 or more times a day. Waking up to urinate 2 or more times overnight. How is this diagnosed? This condition may be diagnosed based on: Your symptoms and medical history. A physical exam. Blood or urine tests to check for possible causes, such as infection. You may also need to see a health care provider who specializes in urinary tract problems. This is called a urologist. How is this treated? Treatment for overactive bladder depends on the cause of your condition and whether it is mild or severe. Treatment may include: Bladder training, such as: ?Learning to control the urge to urinate by following a schedule to urinate at regular intervals. ?Doing Kegel exercises to strengthen the pelvic floor muscles that support your bladder. Special devices, such as: ?Biofeedback. This uses sensors to help you become aware of your body's signals. ?Electrical stimulation. This uses electrodes placed inside the body (implanted) or outside the body. These electrodes send gentle pulses of electricity to strengthen the nerves or muscles that control the bladder. ?Women may use a plastic device, called a pessary, that fits into the vagina and supports the bladder. Medicines, such as: ?Antibiotics to treat bladder infection. ?Antispasmodics to stop the bladder from releasing urine at the wrong time. ?Tricyclic antidepressants to relax bladder muscles. ?Injections of botulinum toxin type A directly into the bladder tissue to relax bladder muscles. Surgery, such as: ?A device may be implanted to help manage the nerve signals that control urination. ?An electrode may be implanted to stimulate electrical signals in the bladder. ?A procedure may be done to change the shape of the bladder. This is done only in very severe cases. Follow these instructions at home: Eating and drinking Make diet or lifestyle changes recommended by your health care provider. These may include: ?Drinking fluids throughout the day and not only with meals. ?Cutting down on caffeine or alcohol. ?Eating a healthy and balanced diet to prevent constipation. This may include: ?Choosing foods that are high in fiber, such as beans, whole grains, and fresh fruits and vegetables. ?Limiting foods that are high in fat and processed sugars, such as fried and sweet foods. Lifestyle Lose weight if needed. Do not use any products that contain nicotine or tobacco. These include cigarettes, chewing tobacco, and vaping devices, such as e-cigarettes. If you need help quitting, ask your health care provider. General instructions Take hkys-leh-nypghit and prescription medicines only as told by your health care provider. If you were prescribed an antibiotic medicine, take it as told by your health care provider. Do not stop taking the antibiotic even if you start to feel better. Use any implants or pessary as told by your health care provider. If needed, wear pads to absorb urine leakage. Keep a log to track how much and when you drink, and when you need to urinate. This will help your health care provider monitor your condition. Keep all follow-up visits. This is important. Contact a health care provider if: You have a fever or chills. Your symptoms do not get better with treatment. Your pain and discomfort get worse. You have more frequent urges to urinate. Get help right away if: You are not able to control your bladder. Summary Overactive bladder refers to a condition in which a person has a sudden and frequent need to urinate. Several conditions may lead to an overactive bladder. Treatment for overactive bladder depends on the cause and severity of your condition. Making lifestyle changes, doing Kegel exercises, keeping a log, and taking medicines can help with this condition. This information is not intended to replace advice given to you by your health care provider. Make sure you discuss any questions you have with your health care provider. Document Revised: 10/27/2020 Document Reviewed: 10/27/2020 [employer] Patient Education 2023 [employer]. Follow Up Care 10/10/2024 10:34:03 With:Jacinta Long PA-C, URL Address: When:Within 3 Month(s) Comments:w/ BLANCA [facility] 11-14-2024 Note Patient Education Obstetrics and Gynecology Overactive Bladder, Adult Overactive bladder is a condition in which a person has a sudden and frequent need to urinate. A person might also leak urine if he or she cannot get to the bathroom fast enough (urinary incontinence). Sometimes, symptoms can interfere with work or social activities. What are the causes? Overactive bladder is associated with poor nerve signals between your bladder and your brain. Your bladder may get the signal to empty before it is full. You may also have very sensitive muscles that make your bladder squeeze too soon. This condition may also be caused by other factors, such as: ??? Medical conditions: ? Urinary tract infection. ? Infection of nearby tissues. ? Prostate enlargement. ? Bladder stones, inflammation, or tumors. ? Diabetes. ? Muscle or nerve weakness, especially from these conditions: ? A spinal cord injury. ? Stroke. ? Multiple sclerosis. ? Parkinson's disease. ??? Other causes: ? Surgery on the uterus or urethra. ? Drinking too much caffeine or alcohol. ? Certain medicines, especially those that eliminate extra fluid in the body (diuretics). ? Constipation. What increases the risk? You may be at greater risk for overactive bladder if you: ??? Are an older adult. ??? Smoke. ??? Are going through menopause. ??? Have prostate problems. ??? Have a neurological disease, such as stroke, dementia, Parkinson's disease, or multiple sclerosis (MS). ??? Eat or drink alcohol, spicy food, caffeine, and other things that irritate the bladder. ??? Are overweight or obese. What are the signs or symptoms? Symptoms of this condition include a sudden, strong urge to urinate. Other symptoms include: ??? Leaking urine. ??? Urinating 8 or more times a day. ??? Waking up to urinate 2 or more times overnight. How is this diagnosed? This condition may be diagnosed based on: ??? Your symptoms and medical history. ??? A physical exam. ??? Blood or urine tests to check for possible causes, such as infection. You may also need to see a health care provider who specializes in urinary tract problems. This is called a urologist. How is this treated? Treatment for overactive bladder depends on the cause of your condition and whether it is mild or severe. Treatment may include: ??? Bladder training, such as: ? Learning to control the urge to urinate by following a schedule to urinate at regular intervals. ? Doing Kegel exercises to strengthen the pelvic floor muscles that support your bladder. ??? Special devices, such as: ? Biofeedback. This uses sensors to help you become aware of your body's signals. ? Electrical stimulation. This uses electrodes placed inside the body (implanted) or outside the body. These electrodes send gentle pulses of electricity to strengthen the nerves or muscles that control the bladder. ? Women may use a plastic device, called a pessary, that fits into the vagina and supports the bladder. ??? Medicines, such as: ? Antibiotics to treat bladder infection. ? Antispasmodics to stop the bladder from releasing urine at the wrong time. ? Tricyclic antidepressants to relax bladder muscles. ? Injections of botulinum toxin type A directly into the bladder tissue to relax bladder muscles. ??? Surgery, such as: ? A device may be implanted to help manage the nerve signals that control urination. ? An electrode may be implanted to stimulate electrical signals in the bladder. ? A procedure may be done to change the shape of the bladder. This is done only in very severe cases. Follow these instructions at home: Eating and drinking ??? Make diet or lifestyle changes recommended by your health care provider. These may include: ? Drinking fluids throughout the day and not only with meals. ? Cutting down on caffeine or alcohol. ? Eating a healthy and balanced diet to prevent constipation. This may include: ? Choosing foods that are high in fiber, such as beans, whole grains, and fresh fruits and vegetables. ? Limiting foods that are high in fat and processed sugars, such as fried and sweet foods. Lifestyle ??? Lose weight if needed. ??? Do not use any products that contain nicotine or tobacco. These include cigarettes, chewing tobacco, and vaping devices, such as e-cigarettes. If you need help quitting, ask your health care provider. General instructions ??? Take hktz-ret-udrdcqe and prescription medicines only as told by your health care provider. ??? If you were prescribed an antibiotic medicine, take it as told by your health care provider. Do not stop taking the antibiotic even if you start to feel better. ??? Use any implants or pessary as told by your health care provider. ??? If needed, wear pads to absorb urine leakage. ??? Keep a log to track how much and when you drink, and whe (more content not included)... [facility] 10-10-2024 Hospital Discharge instructions Patient Education 10/10/2024 10:31:42 Overactive Bladder, Adult Overactive Bladder, Adult Overactive bladder is a condition in which a person has a sudden and frequent need to urinate. A person might also leak urine if he or she cannot get to the bathroom fast enough (urinary incontinence). Sometimes, symptoms can interfere with work or social activities. What are the causes? Overactive bladder is associated with poor nerve signals between your bladder and your brain. Your bladder may get the signal to empty before it is full. You may also have very sensitive muscles that make your bladder squeeze too soon. This condition may also be caused by other factors, such as: Medical conditions: ?Urinary tract infection. ?Infection of nearby tissues. ?Prostate enlargement. ?Bladder stones, inflammation, or tumors. ?Diabetes. ?Muscle or nerve weakness, especially from these conditions: ?A spinal cord injury. ?Stroke. ?Multiple sclerosis. ?Parkinson's disease. Other causes: ?Surgery on the uterus or urethra. ?Drinking too much caffeine or alcohol. ?Certain medicines, especially those that eliminate extra fluid in the body (diuretics). ?Constipation. What increases the risk? You may be at greater risk for overactive bladder if you: Are an older adult. Smoke. Are going through menopause. Have prostate problems. Have a neurological disease, such as stroke, dementia, Parkinson's disease, or multiple sclerosis (MS). Eat or drink alcohol, spicy food, caffeine, and other things that irritate the bladder. Are overweight or obese. What are the signs or symptoms? Symptoms of this condition include a sudden, strong urge to urinate. Other symptoms include: Leaking urine. Urinating 8 or more times a day. Waking up to urinate 2 or more times overnight. How is this diagnosed? This condition may be diagnosed based on: Your symptoms and medical history. A physical exam. Blood or urine tests to check for possible causes, such as infection. You may also need to see a health care provider who specializes in urinary tract problems. This is called a urologist. How is this treated? Treatment for overactive bladder depends on the cause of your condition and whether it is mild or severe. Treatment may include: Bladder training, such as: ?Learning to control the urge to urinate by following a schedule to urinate at regular intervals. ?Doing Kegel exercises to strengthen the pelvic floor muscles that support your bladder. Special devices, such as: ?Biofeedback. This uses sensors to help you become aware of your body's signals. ?Electrical stimulation. This uses electrodes placed inside the body (implanted) or outside the body. These electrodes send gentle pulses of electricity to strengthen the nerves or muscles that control the bladder. ?Women may use a plastic device, called a pessary, that fits into the vagina and supports the bladder. Medicines, such as: ?Antibiotics to treat bladder infection. ?Antispasmodics to stop the bladder from releasing urine at the wrong time. ?Tricyclic antidepressants to relax bladder muscles. ?Injections of botulinum toxin type A directly into the bladder tissue to relax bladder muscles. Surgery, such as: ?A device may be implanted to help manage the nerve signals that control urination. ?An electrode may be implanted to stimulate electrical signals in the bladder. ?A procedure may be done to change the shape of the bladder. This is done only in very severe cases. Follow these instructions at home: Eating and drinking Make diet or lifestyle changes recommended by your health care provider. These may include: ?Drinking fluids throughout the day and not only with meals. ?Cutting down on caffeine or alcohol. ?Eating a healthy and balanced diet to prevent constipation. This may include: ?Choosing foods that are high in fiber, such as beans, whole grains, and fresh fruits and vegetables. ?Limiting foods that are high in fat and processed sugars, such as fried and sweet foods. Lifestyle Lose weight if needed. Do not use any products that contain nicotine or tobacco. These include cigarettes, chewing tobacco, and vaping devices, such as e-cigarettes. If you need help quitting, ask your health care provider. General instructions Take gysr-ijr-ugwksfp and prescription medicines only as told by your health care provider. If you were prescribed an antibiotic medicine, take it as told by your health care provider. Do not stop taking the antibiotic even if you start to feel better. Use any implants or pessary as told by your health care provider. If needed, wear pads to absorb urine leakage. Keep a log to track how much and when you drink, and when you need to urinate. This will help your health care provider monitor your condition. Keep all follow-up visits. This is important. Contact a health care provider if: You have a fever or chills. Your symptoms do not get better with treatment. Your pain and discomfort get worse. You have more frequent urges to urinate. Get help right away if: You are not able to control your bladder. Summary Overactive bladder refers to a condition in which a person has a sudden and frequent need to urinate. Several conditions may lead to an overactive bladder. Treatment for overactive bladder depends on the cause and severity of your condition. Making lifestyle changes, doing Kegel exercises, keeping a log, and taking medicines can help with this condition. This information is not intended to replace advice given to you by your health care provider. Make sure you discuss any questions you have with your health care provider. Document Revised: 10/27/2020 Document Reviewed: 10/27/2020 [employer] Patient Education 2023 [employer]. 10/10/2024 10:31:41 Kegel Exercises Kegel Exercises Kegel exercises can help strengthen your pelvic floor muscles. The pelvic floor is a group of muscles that support your rectum, small intestine, and bladder. In females, pelvic floor muscles also help support the uterus. These muscles help you control the flow of urine and stool (feces). Kegel exercises are painless and simple. They do not require any equipment. Your provider may suggest Kegel exercises to: Improve bladder and bowel control. Improve sexual response. Improve weak pelvic floor muscles after surgery to remove the uterus (hysterectomy) or after , in females. Improve weak pelvic floor muscles after prostate gland removal or surgery, in males. Kegel exercises involve squeezing your pelvic floor muscles. These are the same muscles you squeeze when you try to stop the flow of urine or keep from passing gas. The exercises can be done while sitting, standing, or lying down, but it is best to vary your position. Ask your health care provider which exercises are safe for you. Do exercises exactly as told by your health care provider and adjust them as directed. Do not begin these exercises until told by your health care provider. Exercises How to do Kegel exercises: 1.Squeeze your pelvic floor muscles tight. You should feel a tight lift in your rectal area. If you are a female, you should also feel a tightness in your vaginal area. Keep your stomach, buttocks, and legs relaxed. 2.Hold the muscles tight for up to 10 seconds. 3.Breathe normally. 4.Relax your muscles for up to 10 seconds. 5.Repeat as told by your health care provider. Repeat this exercise daily as told by your health care provider. Continue to do this exercise for at least 4 6 weeks, or for as long as told by your health care provider. You may be referred to a physical therapist who can help you learn more about how to do Kegel exercises. Depending on your condition, your health care provider may recommend: Varying how long you squeeze your muscles. Doing several sets of exercises every day. Doing exercises for several weeks. Making Kegel exercises a part of your regular exercise routine. This information is not intended to replace advice given to you by your health care provider. Make sure you discuss any questions you have with your health care provider. Document Revised: 06/18/2021 Document Reviewed: 06/18/2021 [employer] Patient Education 2023 [employer]om. 10/10/2024 10:31:39 Hematuria, Adult Hematuria, Adult Hematuria is blood in the urine. Blood may be visible in the urine, or it may be identified with a test. This condition can be caused by infections of the bladder, urethra, kidney, or prostate. Other possible causes include: Kidney stones. Cancer of the urinary tract. Too much calcium in the urine. Conditions that are passed from parent to child (inherited conditions). Exercise that requires a lot of energy. Infections can usually be treated with medicine, and a kidney stone usually will pass through your urine. If neither of these is the cause of your hematuria, more tests may be needed to identify the cause of your symptoms. It is very important to tell your health care provider about any blood in your urine, even if it is painless or the blood stops without treatment. Blood in the urine, when it happens and then stops and then happens again, can be a symptom of a very serious condition, including cancer. There is no pain in the initial stages of many urinary cancers. Follow these instructions at home: Medicines Take hfqs-zky-qudgzvk and prescription medicines only as told by your health care provider. If you were prescribed an antibiotic medicine, take it as told by your health care provider. Do not stop taking the antibiotic even if you start to feel better. Eating and drinking Drink enough fluid to keep your urine pale yellow. It is recommended that you drink 3 4 quarts (2.8 3.8 L) a day. If you have been diagnosed with an infection, drinking cranberry juice in addition to large amounts of water is recommended. Avoid caffeine, tea, and carbonated beverages. These tend to irritate the bladder. Avoid alcohol because it may irritate the prostate (in males). General instructions If you have been diagnosed with a kidney stone, follow your health care provider's instructions about straining your urine to catch the stone. Empty your bladder often. Avoid holding urine for long periods of time. If you are female: ?After a bowel movement, wipe from front to back and use each piece of toilet paper only once. ?Empty your bladder before and after sex. Pay attention to any changes in your symptoms. Tell your health care provider about any changes or any new symptoms. It is up to you to get the results of any tests. Ask your health care provider, or the department that is doing the test, when your results will be ready. Keep all follow-up visits. This is important. Contact a health care provider if: You develop back pain. You have a fever or chills. You have nausea or vomiting. Your symptoms do not improve after 3 days. Your symptoms get worse. Get help right away if: You develop severe vomiting and are unable to take medicine without vomiting. You develop severe pain in your back or abdomen even though you are taking medicine. You pass a large amount of blood in your urine. You pass blood clots in your urine. You feel very weak or like you might faint. You faint. Summary Hematuria is blood in the urine. It has many possible causes. It is very important that you tell your health care provider about any blood in your urine, even if it is painless or the blood stops without treatment. Take fhvu-tob-vbstfwu and prescription medicines only as told by your health care provider. Drink enough fluid to keep your urine pale yellow. This information is not intended to replace advice given to you by your health care provider. Make sure you discuss any questions you have with your health care provider. Document Revised: 10/08/2020 Document Reviewed: 10/08/2020 [employer] Patient Education 2023 [employer]om. Follow Up Care 10/04/2024 10:42:48 With:Yogi MEANS, GREGG Wood, URO Address: [address] [place] [phone] When: Unknown Comments:1-2 mos w/ PVR (new med) [facility] 10-10-2024 Note Urology Office/Clini c Note Chief Complaint referral utis, retention HPI Staff Referral from Dr. Rogers for urinary retention. Urine culture @ [facility] 09/21/24 - negative for growth GEORGINA @ [facility] 09/24/24 DR Rogers did some tests and thought she was retaining urine. BBSQ- 21 Pt. denies having incontinence Pt. denies having pain with urination Pt. denies having gross hematuria Pt. denies having abd pain Pt. denies having flank pain History of Present Illness Tests reviewed: reviewed UA, PVR, external referral records, GEORGINA, ucx, CMP, CT scan I have reviewed the previous health record information and history for this patient from external providers. I have reviewed and verified the staff HPI to be accurate for this encounter. Review of Systems PHQ Score Initial Depression Screen Score: 0 SCORE ROS - Provider Constitutional: denies weight loss, denies hot flashes. Eyes: denies eye problems. Gastrointestinal: denies nausea, denies vomiting. Cardiovascular: denies chest pain or angina. Integumentary: no dryness Musculoskeletal: denies musculoskeletal symptoms. ENMT: denies otolaryngeal symptoms. Respiratory: no shortness of breath. Heme/Lymph: denies easy bleeding tendency, denies easy bruising tendency. Psychiatric: no confusion, no anxiety. Genitourinary: See HPI. Physical Exam Vitals & Measurements T: 37 ???C(Tympanic) HR: 73(Peripheral) RR: 14 BP: 160/80 HT: 150 cm HT: 59 in WT: 80.0 kg WT: 176.37 lb BMI: 35.56 General Appearance: alert , no acute distress, well nourished, well developed female. Assessment/Plan Alexa is a 84 yo F new pt referred by Dr. Rogers for urinary retention, here with OAB sxs. Pt here with her . Early dementia 1. OAB (overactive bladder) (N32.81: Overactive bladder) Bladder suspension 1982. CT Pelvis wo con 07/23/24 [facility] - Bladder/ureter wnl. GEORGINA 09/24/24 [facility] - No renal mass, stones, or hydro. PVR 67 mL. BBS 21. Denies hx of UTIs. Neg ucx 09/21/24. Voiding frequently during the day and night. Normal outputs. Ongoing for a while. Denies ever trying meds. No hx of UR. PVR today 146 mL. reports pt struggling to make it to the bathroom at night, has bedside commode and wears c-pap. Urine appears very dark at night. Discussed pt is likely dehydrated. Wearing pad for protection for urge incontinence, does not typically have to change this. Occasional accidents. Denies any pelvic pressure secondary to hx of bladder suspension. NILESH minimal and not bothersome. We discussed the pathophysiology of overactive bladder. We discussed possible treatment options including doing nothing, Kegels/physical therapy +/- biofeedback, behavioral modifications, and trial of medication. She was instructed on doing 3 Kegels when she gets the urge to void before going to the bathroom in an attempt to control her urinary urges. She should exercise her pelvic floor muscles by doing 30-60 repetitions per day. She was counseled regarding bladder retraining, diet choices, and fluid restriction. Treatment options and plan of care discussed with the patient in detail, patient chooses: 1.Patient was informed that first line treatment is behavioral therapy. This includes: - Fluid balancing and sometimes restriction - most women find that a 25% reduction of their fluid intake reduces urinary frequency and urgency - Reducing caffeine or other bladder stimulants will increase the success of these modifications -Bladder retraining - she was given instructions on her bladder retraining -Delayed voiding to help defer the overwhelming urge -Pelvic floor muscle exercises - using biofeedback with pelvic physical therapy or on her own at home -Weight loss - Obesity and weight gain is an important risk factor for UI and weight loss is an effective treatment. Weight gain is an independent risk for incident NILESH and UUI. Women who gain 5 to 10 kg in body weight after age 18 have a 44% higher chance of weekly UI compared to women who stay within 2 kg of their baseline weight; this relationship persists regardless of initial weight. The risk was 4-fold greater in women who gained 30 kg or more. Moderate weight loss (average of 8 kg) in obese women (BMI > 25) with severe UI (at least 10 UI episodes/week) was associated with a significant reduction (47%) in UI episodes. 2. Patient was informed that second line treatment includes medications. Patient was informed that we would be more than happy to start her on medication if behavioral modification is not sufficient to control her bothersome symptoms. We discussed Mirabegron/Gemtesa and that the side effects include possible increase in blood pressure in a small minority of patients, however insurance does not always cover this. We also discussed anticholinergic medications. Side effects and appropriate usage of the medication were discussed with the patient in detail which include, but are not limited to, dry mouth, constipation, visual disturbances, urinary retention, and exacerb (more content not included)... [facility] Comment on above: Result Comment: Elec tronically Signed By: Sharon Calix MD\.br\Date and Time Signed: 10/10/24 11:06 EDT\.br\Electronically Co-Signed By: Holly Canales.br\Date and Time Co-Signed: 10/10/24 10:32 EDT 08-20-2025 Note Patient Education Obstetrics and Gynecology Overactive Bladder, Adult Overactive bladder is a condition in which a person has a sudden and frequent need to urinate. A person might also leak urine if he or she cannot get to the bathroom fast enough (urinary incontinence). Sometimes, symptoms can interfere with work or social activities. What are the causes? Overactive bladder is associated with poor nerve signals between your bladder and your brain. Your bladder may get the signal to empty before it is full. You may also have very sensitive muscles that make your bladder squeeze too soon. This condition may also be caused by other factors, such as: ??? Medical conditions: ? Urinary tract infection. ? Infection of nearby tissues. ? Prostate enlargement. ? Bladder stones, inflammation, or tumors. ? Diabetes. ? Muscle or nerve weakness, especially from these conditions: ? A spinal cord injury. ? Stroke. ? Multiple sclerosis. ? Parkinson's disease. ??? Other causes: ? Surgery on the uterus or urethra. ? Drinking too much caffeine or alcohol. ? Certain medicines, especially those that eliminate extra fluid in the body (diuretics). ? Constipation. What increases the risk? You may be at greater risk for overactive bladder if you: ??? Are an older adult. ??? Smoke. ??? Are going through menopause. ??? Have prostate problems. ??? Have a neurological disease, such as stroke, dementia, Parkinson's disease, or multiple sclerosis (MS). ??? Eat or drink alcohol, spicy food, caffeine, and other things that irritate the bladder. ??? Are overweight or obese. What are the signs or symptoms? Symptoms of this condition include a sudden, strong urge to urinate. Other symptoms include: ??? Leaking urine. ??? Urinating 8 or more times a day. ??? Waking up to urinate 2 or more times overnight. How is this diagnosed? This condition may be diagnosed based on: ??? Your symptoms and medical history. ??? A physical exam. ??? Blood or urine tests to check for possible causes, such as infection. You may also need to see a health care provider who specializes in urinary tract problems. This is called a urologist. How is this treated? Treatment for overactive bladder depends on the cause of your condition and whether it is mild or severe. Treatment may include: ??? Bladder training, such as: ? Learning to control the urge to urinate by following a schedule to urinate at regular intervals. ? Doing Kegel exercises to strengthen the pelvic floor muscles that support your bladder. ??? Special devices, such as: ? Biofeedback. This uses sensors to help you become aware of your body's signals. ? Electrical stimulation. This uses electrodes placed inside the body (implanted) or outside the body. These electrodes send gentle pulses of electricity to strengthen the nerves or muscles that control the bladder. ? Women may use a plastic device, called a pessary, that fits into the vagina and supports the bladder. ??? Medicines, such as: ? Antibiotics to treat bladder infection. ? Antispasmodics to stop the bladder from releasing urine at the wrong time. ? Tricyclic antidepressants to relax bladder muscles. ? Injections of botulinum toxin type A directly into the bladder tissue to relax bladder muscles. ??? Surgery, such as: ? A device may be implanted to help manage the nerve signals that control urination. ? An electrode may be implanted to stimulate electrical signals in the bladder. ? A procedure may be done to change the shape of the bladder. This is done only in very severe cases. Follow these instructions at home: Eating and drinking ??? Make diet or lifestyle changes recommended by your health care provider. These may include: ? Drinking fluids throughout the day and not only with meals. ? Cutting down on caffeine or alcohol. ? Eating a healthy and balanced diet to prevent constipation. This may include: ? Choosing foods that are high in fiber, such as beans, whole grains, and fresh fruits and vegetables. ? Limiting foods that are high in fat and processed sugars, such as fried and sweet foods. Lifestyle ??? Lose weight if needed. ??? Do not use any products that contain nicotine or tobacco. These include cigarettes, chewing tobacco, and vaping devices, such as e-cigarettes. If you need help quitting, ask your health care provider. General instructions ??? Take pdmv-ddh-lcguvui and prescription medicines only as told by your health care provider. ??? If you were prescribed an antibiotic medicine, take it as told by your health care provider. Do not stop taking the antibiotic even if you start to feel better. ??? Use any implants or pessary as told by your health care provider. ??? If needed, wear pads to absorb urine leakage. ??? Keep a log to track how much and when you drink, and whe (more content not included)... [facility] 12-06-2023 History of Present illness Narrative Images from the original note were not included. Armando Morales, DO Obstetrics and Gynecology Alexa Delgado 1940 12/06/23 [id number] Yearly Wellness Exam Chief Complaint Patient presents with Gynecologic Exam Medicare yearly. [facility]: None Last pap 12-02-21 neg. Last mammogram 12-05-23 [facility] ordered by PCP. Denies breast or [...] Oil) 1000 MG capsule as directed Orally Kdtwslbeecd-Yzrqkxttwls-AXU (Triple Flex) 500-400-125 MG tablet 1 tablet with meals Orally twice daily for 30 days HYDROcodone-acetaminophen (Selma) 5-325 MG tablet 1 tablet as needed [...] medical problems 1982 MMK LSO HTN (hypertension) ([facility]) Hx of completed stroke hx of stroke at [id number]/ TIA 1984 Kidney disease remission Kidney disease hx of hospitalization Lumbar disc herniation 2007 L4 L5 Miscarriage x3 Pelvic fracture ([facility]) 2018 hx of hospitalization x4 Status post laser cataract surgery of left eye 2014 Stroke ([facility]) 1973 at childbirth TIA (transient [...] costovertebral angle tenderness, no obvious scoliosis/kyphosis. 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 Author [...] Health Percentile 1 (more content not included)... [facility] 09-21-2022 Instructions Carolyn Vanegas MD - [...] time. documented in this encounter [facility] 09-21-2022 History of Present illness [...] pain program and they will consider. Alexa Adriana Delgado is not a candidate for surgery [...] Moderate documented in this encounter [facility] 08-26-2022 Note HNO ID: [id number] Author: Kassandra Alves PA-C Service: ? Author Type: Physician Machine Sand Mixer Type: Progress Notes Filed: 08/26/2022 11:52 AM [...] yes 2006 [facility] Address: [address] [place] [address] CMT: PT Injections Tylenol Hydrocodone Studies (Reports [...] reviewed during the appt Kassandra Alves PA-C [facility] 08-26-2022 History of Present illness Narrative Per Triage: Alexa Delgado is a 82 year old female that requests evaluation of spine. Per review, they have symptoms of lower back pain. Numbness/tingling right leg. Difficulty walking. Weakness Request: 1st available Referring provider: Galina Rogers MD Patient out of state: no 2nd opinion: no Prior spine surgery: yes 2006 [facility] Address: [address] [place] [address] CMT: PT Injections Tylenol Hydrocodone Studies (Reports [...] or Pain Management Provider at [facility]? No If answer is YES [...] facility where the MRI/CT/myelogram was completed: [facility] Address: [address] [place] [address] MRI/CT/myelogram viewable in Epic: No If not, please provide [phone] to fax in imaging reports for review. [...] physical therapy was completed PT Injection [facility] Address: [address] [place] [address] Have you tried any other kinds of [...] where the surgery was completed: 2006 [facility] Address: [address] [place] [address] Additional Comments documented in this encounter [facility] 08-19-2022 Note HNO ID: [id number] Author: Micheal Bowman Service: ? Author Type: ? Type: Progress Notes Filed: 08/26/2022 11:52 AM Note Text: Patient name: Alexa Delgado Are you being referred by a [facility] Spine Health Provider or Pain Management Provider at [facility]? No If answer is YES [...] facility where the MRI/CT/myelogram was completed: [facility] Address: [address] [place] [id number] MRI/CT/myelogram viewable in Epic: No If not, please provide [phone] to fax in imaging reports for review. [...] physical therapy was completed PT Injection [facility] Address: [address] [place], [place] [id number] Have you tried any other kinds of [...] completed: 2006 [facility] Address: [address] [place] [address] Additional Comments [facility] 07-16-2022 Note PROCEDURE: XR HIP RT [...] [facility] 05-14[facility]2022 Note HNO ID: [id number] Author: Marty Dozier, DO Service: ? Author Type: Physician Type: Progress Notes Filed: 05/15/2022 10:02 PM Note Text: [facility] [place] [facility] Spine Initial [...] Ratio: R>L low back Current Treatment: Medications Selma 5-325 mg BID - helps Diclofenac 75 [...] but still has pain -01/28/22 Noemi Sequeira FIRER MARINE: BL Lumbar erector spinae TPI (0.125% Marcaine, [...] ongoing as of 04/17/21 -03/08/21 Noemi Sequeira FIRER MARINE: Left rhomboid TPI (0.125% Marcaine, 40 mg Kenalog) -02/03/21 LESI - moderate relief for 4 days Prior spine surgery: -2006 L4-5 Discectomy Previously treated by: -[facility], previously Dr. Niko [...] has an evaluation at the [facility] tomorrow at the Spine Center. RECOMMENDATIONS: We will see the patient back in the office after she undergoes evaluation there to discuss her treatment plan thereafter. We will see the patient back in the office in approximately four weeks' time or sooner if needed. PMH: Lumbar scoliosis Depression on Negrita (more content not included)... [facility] 05-14-2022 History of Present illness Narrative Images from the original note were not included. [facility] [place] [facility] - Medical [...] Ratio: R>L low back Current Treatment: Medications Selma 5-325 mg BID - helps Diclofenac 75 [...] but still has pain -01/28/22 Noemi Sequeira FIRER MARINE: BL Lumbar erector spinae TPI (0.125% Marcaine, [...] ongoing as of 04/17/21 -03/08/21 Noemi Sequeira FIRER MARINE: Left rhomboid TPI (0.125% Marcaine, 40 mg Kenalog) -02/03/21 LESI - moderate relief for 4 days Prior spine surgery: -2006 L4-5 Discectomy Previously treated by: -[facility], previously Dr. Niko [...] has an evaluation at the [facility] tomorrow at the Spine Center. [...] tract stone. No evidence for bowel obstruction. 09/25/22 XR abd, [facility], report: No acute osseous abnormality. There is moderate dextrocurvature of the lumbar spine. 05/08/2021 XR right hip/pelvis, [facility], report: Rotatory dextro scoliosis of the [...] PM documented in this encounter [facility] 05-13-2022 Note CONSULTATION CONSULTATION DATE: [...] mg at h.s., diclofenac 75 mg b.i.d., Selma 5 mg b.i.d. EXAM: Notable for the [...] has an evaluation at the [facility] tomorrow at the Spine Center. RECOMMENDATIONS: We will see the patient back in the office after she undergoes evaluation there to discuss her treatment plan thereafter. We will see the patient back in the office in approximately four weeks' time or sooner if needed. [facility] 04-06-2022 Note CONSULTATION CONSULTATION DATE: 04/06/2022 [...] to kidney dysfunction also. The patient takes Selma, however, is very controlled and limits it to the point of detriment. Education was done. The patient was instructed to take the Selma to a b.i.d. to t.i.d. basis. The [...] b.i.d. basis. The patient may increase the Selma to 5/325 t.i.d. We will schedule the [...] the procedure. CC: Galina Rogers M.D. [facility] 03-11-2022 Note CONSULTATION CONSULTATION DATE: 03/11/2022 [...] gave improvement for 24 hours. Medications include Selma 5/325 b.i.d., diclofenac 75 mg b.i.d., citalopram [...] back pain. PLAN: We will refill her Selma 5/325 b.i.d. We will prescribe her Buderer cream with gabapentin, ketorolac and prilocaine/lidocaine to be placed over her right knee. We will trial Requip 0.25 mg q.h.s. We will see the patient in the clinic in three months' time unless otherwise indicated. Patient agrees with the plan. [facility] 01-28-2022 Note CONSULTATION CONSULTATION DATE: 01/28/2022 [...] daily which decreases her pain. Medications include Selma 5/325 b.i.d., Flexeril 5 mg b.i.d., diclofenac [...] does consent to. We will refill the Selma 5/325 b.i.d. We will pre-authorize for a right genicular nerve block under fluoroscopy. Patient will follow up in the clinic thereafter. [facility] 01-28-2022 Note CONSULTATION PROCEDURE DATE: 01/28/2022 [...] be followed up in the office. [facility] 12-31-2021 Note CONSULTATION CONSULTATION DATE: 12/31/2021 [...] Current medications include diclofenac 75 mg b.i.d., Selma 5/325 b.i.d., citalopram, Flexeril and multivitamin regimen. The patient does state that she breaks her Selma in half and the most she takes [...] and would like to move forward. [facility] 09-30-2021 Note CONSULTATION CONSULTATION DATE: 09/30/2021 This is a very -ptke-yep female accompanied by her returning to the [...] Current medications include diclofenac 50 mg b.i.d., Selma 5/325 b. i.d. and Tylenol. She does [...] at 25 mg q.h.s. Refill for her Selma 5/325 b.i.d. will be sent as well. The patient is to continue with her vitamin regimen which she is currently compliant with, as well as heat application and pool exercises. The patient will be followed up in the office in three months' time unless otherwise indicated. The patient agrees with the plan of care. [facility] Evaluation + Plan note Future Appointments Appointment Date:11/14/2024 03:00:00 PM Scheduled Provider:Jacinta Long PA-C Location:[facility] Appointment Type:URO Office Visit [facility] Evaluation + Plan note Future Appointments Appointment Date:02/26/2025 03:10:00 PM Scheduled Provider:Jacinta Long PA-C Location:[facility] Appointment Type:URO Office Visit [facility] Evaluation note Diagnosis Chronic bilateral low back pain with right-sided sciatica- Primary Back pain, lumbosacral Lumbago Chronic sacroiliac joint pain Disorders of sacrum Lumbar spondylosis Lumbosacral spondylosis without myelopathy Scoliosis of lumbar spine, unspecified scoliosis type [facility] [place]* Diagnosis Spinal stenosis, lumbar region with neurogenic claudication- Primary Spondylolisthesis, lumbar region Other idiopathic scoliosis, lumbar region [facility] Obesity, Class I, BMI 30-34.9- Primary Obesity, unspecified Spinal stenosis, lumbar region with neurogenic claudication [facility] [place] [facility] Diagnosis Encounter for gynecological examination without abnormal finding Encounter for Papanicolaou smear of vagina Breast cancer screening by mammogram [facility] noteNo assessment information [facility] Work Phone: Hospital course Narrative No data available for this section [facility] progress note No data available for this section [facility] reason for referral (narrative)No reason for referral information availableCosho[facility] Work Phone: Summary Purpose Family History No Family History Records FoundNo Family History Records FoundNo Family History Records FoundNo Family History Records FoundNo Family History Records FoundNo Family History Records Found No data available for this section No Family History Records Found No data available for this section No Family History Records FoundNo Family History Records Found Advance Directives No Advanced Directives Records Found Advance Directive Response Recorded Date/ Time Advance Directives No October 10:43am Reason for Referral Specialty Diagnoses / Procedures Referred By Jimmy t Referred To Contact [facility] [place] Diagnoses Spinal stenosis, lumbar region with neurogenic claudication Procedures [facility] TO [facility] OFFICE/OUTPATIENT [facility] 60-74 MINUTES Carolyn Vanegas MD [address] [place] [address] Referral ID Status Reason Start Date Expiration Date Visits Requested Visits Authorized [id number] Pending Review PCP Requested Referral 09/21/2022 09/21/2023 1 1 Additional Source Comments INFORMATION SOURCE (unrecogn ized section and content) DATE CREATED AUTHOR 09/13/2017 [facility] DATE CREATED AUTHOR AUTHOR'S ORGANIZ ATION 12/13/2020 [facility] DATE CREATED AUTHOR AUTHOR'S ORGANIZ ATION 07/30/2022 [facility] DATE CREATED AUTHOR AUTHOR'S ORGANIZ ATION 09/22/2022 [facility] DATE CREATED AUTHOR AUTHOR'S ORGANIZ ATION 12/08/2023 [facility] DATE CREATED AUTHOR AUTHOR'S ORGANIZ ATION 10/10/2024 [facility] DATE CREATED AUTHOR AUTHOR'S ORGANIZ ATION 10/13/2024 [facility] DATE CREATED AUTHOR AUTHOR'S ORGANIZ ATION 11/16/2024 [facility] Source Comments (unrecognize d section and content) In the event this informatio n is protected by the Federal Confidentiality of Alcohol and Drug Abuse Patient Records regulations: The Federal rules restrict any use of the information to criminally investigate or prosecute any alcohol or drug abuse patient.[facility] the event this information is protected by the Federal Confidentiality of Alcohol and Drug Abuse Patient Records regulations: The Federal rules restrict any use of the information to criminally investigate or prosecute any alcohol or drug abuse patient.[facility] the event this information is protected by the Federal Confidentiality of Alcohol and Drug Abuse Patient Records regulations: The Federal rules restrict any use of the information to criminally investigate or prosecute any alcohol or drug abuse patient.[facility] Reason for Visit (unrecogniz ed section and content) Reason Comments New Patient Evaluation Low Back Pain Reason Comments New Patient Reason Comments Gynecologic Exam Medicare yearly.LMP: SUNIL BSO 1972HRT: NoneLast pap 12-02-21 neg.Last mammogram 12-05-23 [facility] ordered by PCP.Denies breast or urinary concerns. bowel concern Some rectal bleeding with bowel movements. Denies difficulty having a bowel movement. Care Teams (unrecognized sec tion and content) Operations Superintendent Relationship Specialty Start Date End Date Galina Rogers MD [address] [place] [address] PCP - General Family Medicine 05/14/22 Colette De Leon Jr., DO [address] [place] [address] Referring Orthopedics 05/03/22 ShermijesicayArmenranath [address] [phone] Pain Management 05/14/22 Colette De Leon Jr., DO [address] [place] [address] Orthopedics 05/14/22 Operations Superintendent Relationship Specialty Start Date End Date Galina Rogers MD [address] [place] [address] PCP - General Family Medicine 05/14/22 Colette De Leon Jr., DO [address] [place] [address] Referring Orthopedics 05/03/22 Tereshmijesicay, Claudioendranath [address] [phone] Pain Management 05/14/22 Colette De Leon Jr., DO [address] [place] [address] Orthopedics 05/14/22 Galina Rogers MD [address] [place] [address] Referring Family Medicine 08/11/22 Operations Superintendent Relationship Specialty Start Date End Date Galina Rogers MD [address] [place] [address] PCP - General Family Medicine 05/14/22 Colette De Leon Jr., DO [address] [facility] [address] [place] [address] Referring Orthopedics 05/03/22 Porsha Garcia [address] [phone] Pain Management 05/14/22 Colette De Leon Jr., DO [address] [place] [address] Orthopedics 05/14/22 Galina Rogers MD [address] [place] [facility] [place] [address] Referring Family Medicine 08/11/22 Operations Superintendent Relationship Specialty Start Date End Date Galina Rogers MD [address] [place] [facility] [address] PCP - General Family Medicine 08/02/22 Team Status: Inactive Member Role Status Dates Galina Rogers MD Attending Provider Active Sta rt: September 22, 2024 End: September 22, 2024 Goals (unrecognized section and content) Goals may be documented in a n alternate section No data available for this section No data available for this section FOR RECORDS PERTAINING TO PATIENTS WHO ARE [...] BE BASED ON THE PRIMARY CLINICAL RECORDS. [facility]. provides no warranty or guarantee of the accuracy or completeness of information in this document.
--- NOTE | 2024-12-03 14:43 | MM_ITS ---
Patient Name: KARINA CORMIER MR#: [id number] : 1940 Exam Date: 12/03/2024 Ordering Doctor: DR GALINA PALMER . RADIOLOGY REPORT PROCEDURE: MM SCREENING MAMMO BI COMPARISON: MM SCREENING MAMMO BI, 12/02/2023. MM SCREENING MAMMO BI, 11/26/2022. INDICATIONS: screening Calculator Name NCI Breast Cancer Risk Assessment Tool 5 Year Breast Cancer Risk 1.70% Lifetime Breast Cancer Risk 1.70% Personal Breast Cancer No Personal Ovarian Cancer No Treatments None Family Cancers None LOCATION: [facility] BREAST COMPOSITION: There are scattered areas of fibroglandular density. FINDINGS: DIAGNOSTIC CATEGORY 1--NEGATIVE. RIGHT BREAST: No significant suspicious finding. LEFT BREAST: No significant suspicious finding. RECOMMENDATIONS: ROUTINE MAMMOGRAM AND CLINICAL EVALUATION IN 12 MONTHS. Dictated by: Chris Hamilton MD on 12/03/2024 at 15:32 Approved by: Chris Hamilton MD on 12/03/2024 at 15:34
== END 2024-12-03 14:20 | disposition home or self-care (01) ==
LOC: MAMMO 14:19
PROVIDERS: PCP Family Medicine; Visit Provider Family Medicine
DX: Z12.31 Encounter for screening mammogram for malignant neoplasm of breast (principal)
CPT/HCPCS: 77067

== ENCOUNTER 2024-12-11 14:28 | Outpatient (OUT) | payer MEDICARE, SELFPAY ==
--- OUTSIDE RECORDS SUMMARY | 2024-12-11 14:33 | XMS_ITS | CCD ---
Author Organization [facility] Providers Care Wheel Truer Name Role Phone PHYSICIAN, DEFAULT Unavailable Unavailable PHYSICIAN, DEFAULT Unavailable Unavailable Haley Bright DO, George Cajetan Unavailable Galina Palmer MD Primary Care Provider Lakshmipathy, Narendranath Unavailable [...] Unavailable HOY ., DR MOJICA Consulting Unavailable LUNENBURG, DR HERMES Jean Baptiste Consulting Unavailable LATANYA ., DR NIKO Austin Attending Unavailable LATANYA ., DR NIKO Austin Admitting Unavailable ESTELLA .NOEMI Consulting Unavailable ESTELA ., DR MOJICA Primary Care Unavailable Haley Bright, Colette MOORE Unavailable Galina Palmer MD Unavailable GALINA PALMER Primary Care Unavailable CAROLYN VANEGAS Attending Unavailable MARTY DOZIER Attending Unavailable JR. DE LEON GEORGE C Attending Unavailvanda DE LEON JR., GEORGE C Referring UnavailARMANDO Trinh Attending Unavailable Galina Palmer MD Primary Care Provider [phone] Galina Palmer MD Attending Provider Ishmael MEANS, Lyn Adams Attending Unavailable Ishmael MEANS, Andrius Adams Attending Unavailable Ishmael MEANS, Andrius Adams Attending Unavailable Ishmael MEANS, Andrius Adams Attending Unavailable Ishmael MEANS, Lyn Adams Attending Unavailable Ishmael MEANS, Lyn Adams Attending Unavailable Galina Palmer Primary Care Physician Galina Palmer Attending Unavailable Galina Palmer Admitting Unavailable NO FAMILY, PHYSICIAN Primary Care Unavailable Jacinta Long Attending Unavailable Sharon Calix Attending Unavailable Sharon Calix Attending Unavailable Sharon Calix Admitting Unavailable Jacinta Long Attending Unavailable Sharon Calix Attending Unavailable Sharon Calix. Admitting Unavailable Allergies Allergy ClassificationReported Allergen(s)Allergy TypeDate of OnsetReaction(s) Facility (9 sources)Codeine; Translations: [CODEINE]Drug Rxvouou77-51-4596Umdgmhq, Unknown (qualifier value)[facility] (4 sources)Penicillins; Translations: [PENICILLINS]Drug Fyjrzoh24-78-1426Lckzigc [facility] (6 sources)pregabalin; Translations: [PREGABALIN]Drug Ooekria05-70-1097 Intolerance, Unknown (qualifier value)[facility] Work Phone: (7 sources)Propoxyphene; Translations: [PROPOXYPHENE]Drug Ducrwzg07-21-4140Ztnn, Unknown, GI intolerance, Headache, Unknown (qualifier value)[facility] (4 sources)quiNINE; Translations: [QUINAMM]Drug Ifqomnf06-55-8344BM Upset [facility] (5 sources)Decongest Multi-Action; Translations: [Decongest Multi-Action]Drug Pluwdet86-20-5540Emlpi: See CommentsMedina Hospital (1 source)Acetaminophen / HYDROcodoneDrug AllergyThe [facility] (2 sources)CodeineDrug Kypqygc46-83-0884[facility] (3 sources)Fluconazole; Translations: [Diflucan][facility]ergyThe [facility] (2 sources)PenicillinsDrug allergy (disorder)80-89-1781Beg [facility] (3 sources)pregabalin; Translations: [Lyrica][facility]rug [facility]The [facility] (4 sources)Propoxyphene; Translations: [Darvon]Drug [facility]ergyMary [facility] (1 source)quiNINEDrug AllergyThe [facility] (1 source)FluconazoleAllergy to emccyclrx61-76-1100GrhghezOJTL Healthcare (1 source)PenicillinsPropensity to adverse uobzaqryv48-07-5062IrbwxkhXCJP Healthcare (1 source)PregabalinPropensity to adverse iisjbeelx03-54-6772DhdvfhrhlVJXA Healthcare (1 source)PseudoephedrineDrug Mueqpxg74-23-3357JJZB [facility] (5 sources)quiNINE; Translations: [quinine]Drug Ubmzcvm32-72-7680WF intolerance, Headache, Dizziness, Unknown (qualifier value)[facility] (2 sources)Fluconazole; Translations: [fluconazole]Drug AllergyUnknown (qualifier value)[facility] (4 sources)Penicillin; Translations: [penicillin]Drug AllergyUnknown (qualifier value)[facility] Medications Current Medications MedicationDrug Class(es)DatesSig (Normalized)Sig (Original)Tylenol (6 sources)Start: 54-78-8997Zyjberh Oral, Refills(s) 0 Start Date: 10/10/24 Status: Ordered Repeat number: 1acetaminophen (Tylenol) 500 MG tablet Take by mouth. ActiveComment on above:Take 500 mg by mouth twice daily.acetaminophen 325 mg / HYDROcodone bitartrate 5 mg oral tablet (6 sources)Opioid AgonistStart: 68-04-0840jcqg 1 tablet by mouth every six hours [place] 325 mg-5 mg oral tablet tab(s), Oral, q6hr, Refill(s) 0 Start Date: 10/10/24 Status: Ordered Repeat number: 1Start: 37-01-4929cloc 1 tablet by mouth twice daily as neededHYDROcodone-acetaminophen ([place]) 5-325 MG tablet 1 tablet as needed Orally twice daily 04/29/2022 ActiveComment on above:Take 1 tablet by mouth twice daily as needed.Benita 24 Hour (2 sources)Start: 25-54-0733Udzilzb 24 Hour Refills(s) 0 Start Date: 10/10/24 Status: Ordered Repeat number: 1Aspir 81 (2 sources)Start: 16-10-0514mhox 1 mg by mouth once dailyAspir 81 mg, Oral, Daily, Refills(s) 0 Start Date: 10/10/24 Status: Ordered Repeat number: 1aspirin 81 mg delayed release oral tablet (4 sources)Platelet Aggregation Inhibitor, Nonsteroidal Anti-inflammatory Drug take 1 tablet by mouth in the morningaspirin 81 MG EC tablet Take 81 mg by mouth in the morning. ActiveComment on above:Take 81 mg by mouth once daily.Caltrate (4 sources)Start: 76-49-2444tbra 1 mg by mouth once dailyCaltrate mg, Oral, Daily, Refills(s) 0 Start Date: 10/10/24 Status: Ordered Repeat number: 1Start: 77-24-9996Refbzjnv 600 + D Oral, BID, Refill(s) 0 Start Date: 10/10/24 Status: Ordered Repeat number: 1Calcium Carbonate / Vitamin D (1 source)Calcium Carbonate-Vitamin D (CALTRATE 600+D PO) Take by mouth twice a day. NrqgkoQtykfan-Ofohvet-Fcksof Edwar (SALONPAS TD) (1 source)Iqranzq-Yhdpvio-Xjwwkw Edwar (SALONPAS TD) Place on the skin Active citalopram 10 mg oral tablet (6 sources)Serotonin Reuptake InhibitorStart: 16-10-2706yvdp 1 mg by mouth once dailycitalopram 10 mg Tab mg tab(s), Oral, Daily, Refills(s) 0 Start Date: 10/10/24 Status: Ordered Repeat number: 1Start: 24-25-2887knhk 1 tablet by mouth once dailycitalopram hydrobromide (CELEXA) 10 mg tablet Take 10 mg by mouth once daily. Treat Depression 0 03/01/2022 ActiveComment on above:Take 10 mg by mouth once daily. Treat Depressioncyclobenzaprine hydrochloride 5 mg oral tablet (6 sources)Muscle RelaxantStart: 36-32-9606nfse 1 mg by mouth three times daily cyclobenzaprine 5 mg Tab mg tab(s), Oral, TID, Refills(s) 0 Start Date: 10/10/24 Status: Ordered Repeat number: 1cyclobenzaprine (Flexeril) 5 MG tablet Take 5 mg by mouth every 12 (twelve) hours if needed. Activetake 1 tablet by mouth every twelve hours as neededcyclobenzaprine (FLEXERIL) 5 mg tablet Take 5 mg by mouth twice daily as needed for muscle spasm. 0ActiveComment on above:Take 5 mg by mouth twice daily as needed for muscle spasm.diclofenac sodium 75 mg delayed release oral tablet (6 sources)Nonsteroidal Anti-inflammatory DrugStart: 66-61-6070yvmj 1 mg by mouth twice dailydiclofenac sodium 75 mg Oral EC Tab mg tab(s), Oral, BID, Refills(s) 0 Start Date: 10/10/24 Status: Ordered Repeat number: 1Start: 15-15-3117ktme 1 tablet by mouth twice daily for paindiclofenac, EC, (VOLTAREN) 75 mg EC tablet Take 75 mg by mouth twice daily. For Arthritis pain 0 03/24/2022 Activediclofenac (Voltaren) 75 MG EC tablet every 12 (twelve) hours. Active Comment on above:Take 75 mg by mouth twice daily. For Arthritis painferrous sulfate 325 mg delayed release oral tablet (3 sources)Start: 18-09-8758mxkk 1 mg by mouth once dailyferrous sulfate 325 mg oral enteric coated tablet mg tab(s), Oral, Daily, Refills(s) 0 Start Date: Status: Ordered Repeat number: 1Start: 16-52-7964apxl 1 tablet by mouth in the morningferrous sulfate 325 (65 Fe) MG tablet Take 1 tablet by mouth in the morning and 1 tablet before bedtime. 09/16/2023 Activefexofenadine hydrochloride 180 mg oral tablet (5 sources)Histamine-1 Receptor Antagonist End: 41-67-9617bilupozpagmm (Benita Allergy) 180 MG tablet [facility] 12/06/2023 Discontinued (Duplicate order)Comment on above:Take 180 mg by mouth once daily. flax oral capsule (2 sources)Start: 52-38-8307ehvv oral capsule Refill(s) 0 Start Date: 10/10/24 Status: Ordered Repeat number: 1gabapentin 100 mg oral capsule (2 sources)Anti-epileptic AgentStart: 59-32-0130yubt 1 mg by mouth three times dailygabapentin 100 mg Cap mg cap(s), Oral, TID, Refills(s) 0 Start Date: 10/10/24 Status: Ordered Repeatnumber: 2Kjdwpbogbqo-Xlitwqnktzq-NFG (Triple Flex) 500-400-125 MG tablet (1 source)take 1 tablet by mouth twice daily at mealtime Axvytnjeqsp-Jgmnefgndzz-BSB (Triple Flex) 500-400-125 MG tablet 1 tablet with meals Orally twice daily for 30 days Wopmfn49 hr isosorbide mononitrate 30 mg extended release oral tablet (6 sources)Nitrate VasodilatorStart: 43-27-6840lzmu 1 mg by mouth once daily in the morningisosorbide mononitrate 30 mg ER Tab mg tab(s), Oral, qAM, Refills(s) 0 Start Date: 10/10/24 Status: Ordered Repeat number: 1Start: 36-15-1813mvuo 1 tablet by mouth in the morning, then take 1 tablet by mouth every twenty-four hoursisosorbide mononitrate ER (Imdur) 30 MG 24 hr tablet Take 30 mg by mouth in the morning. 03/21/2022ctiveComment on above:Take 30 mg by mouth once daily. 1 tablet daily in the AM on an empty stomach Treat for Anginalevothyroxine sodium 0.075 mg oral tablet (6 sources)l-ThyroxineStart: 56-60-8919ofml 1 tablet by mouth once daily levothyroxine 75 mcg (0.075 mg) Tab mcg tab(s), Oral, Daily, Refills(s) 0 Start Date: 10/10/24 Status: Ordered Repeat number: 1Start: 13-96-4037clqhpmhaixyyr (Synthroid, Levoxyl) 75 MCG tablet 1 (one) time each day at the same time. 03/18/2022ctiveComment on above:Take 75 mcg by mouth once daily. Patient takes 1 tablet in the AMlinseed oil 1000 mg oral capsule (4 sources)Flaxseed, Linseed, (Flax Seed Oil) 1000 MG capsule as directed Orally ActiveComment on above:Take 1,000 mg by mouth once daily.liothyronine sodium 0.025 mg oral tablet (6 sources)l-TriiodothyronineStart: 66-40-3525nqei 1 tablet by mouth once daily liothyronine 25 mcg Tab 25 mcg = 1 tab(s), Oral, Daily, # 90 tab(s), Refills(s) 0 Start Date: 10/10/24 Status: Ordered Quantity: 90.0 Unit: tab(s) Repeat number: 1liothyronine (Cytomel) 25 MCG tablet 1 (one) time each day at the same time. ActiveComment on above:Take 25 mcg by mouth once daily.Magnesium (1 source)MAGNESIUM PO Take by mouth + cheleated zinc Activemagnesium amino acid chelate (5 sources)Start: 94-90-8444uzuumdebv amino acids chelate Oral, Refills(s) 0 Start Date: 10/10/24 Status: Ordered Repeat number:1take 250 mg by mouth once daily at bedtimeMAGNESIUM AMINO ACID CHELATE ORAL Take 250 mg by mouth once daily. At bedtime 0 ActiveComment on above:Take 250 mg by mouth once daily. At bedtimeMelatonin (6 sources)Start: 90-84-6424Urgcmrwam Once a day (at bedtime), Refills(s) 0 Start Date: 10/10/24 Status: Ordered Repeat number: 1melatonin 3 MG tablet 1 (one) time each day at the same time. Activetake 1 capsule by mouth once daily at bedtimemelatonin 3 mg capsules Take 3 mg by mouth daily at bedtime. 0 Active Comment on above:Take 3 mg by mouth daily at bedtime.24 hr metoprolol succinate 50 mg extended release oral tablet (6 sources)beta-Adrenergic BlockerStart: 65-62-2346xfup 1 mg by mouth once daily metoprolol succinate 50 mg ER Tab mg tab(s), Oral, Daily, Refills(s) 0 Start Date: 10/10/24 Status: Ordered Repeat number: 1Start: 44-26-0324yswr 1 tablet by mouth twice dailymetoprolol succinate ER (TOPROL XL) 50 mg 24 hr tablet Take 50 mg by mouth twice daily. 0 03/24/2022 ActiveComment on above:Take 50 mg by mouth twice daily.24 hr mirabegron 25 mg extended release oral tablet (1 source)beta3-Adrenergic AgonistStart: 11-14-2024 End: 28-67-8935gwgp 1 tablet by mouth once dailyMyrbetriq 25 mg oral tablet, extended release 25 mg = 1 tab(s), Oral, Daily, X 30 day(s), # 30 tab(s), Refills(s) 3, Pharmacy: [facility]/pharmacy #[id number], 150, cm, 11/14/24 15:17:00 EDT, Height/Length Dosing, 79.9, kg, 11/14/24 15:17:00 EDT, Weight Dosing Start Date: 11/14/24 Stop Date: 03/14/25 Status: Ordered Quantity: 30.0 Unit: tab(s) Repeat number: 4 Indications: Overactive bladder;Multi Vitamin+ (2 sources)Start: 48-80-3519Xcksi Vitamin+ Refill(s) 0 Start Date: 10/10/24 Status: Ordered Repeat number: 1Multiple Vitamin (multivitamin) tablet (1 source)take 1 tablet by mouth in the morningMultiple Vitamin (multivitamin) tablet Take 1 tablet by mouth in the morning. ActiveNitroglycerin (6 sources)Nitrate VasodilatorStart: 87-46-5303tyzlsuwvsvdki Refills(s) 0 Start Date: 10/10/24 Status: Ordered Repeat number: 1nitroglycerin (Nitrostat) 0.4 MG SL tablet as directed Sublingual Activetake 1 tablet by mouth three times daily as neededNITROGLYCERIN ORAL Take 0.4 mg by mouth three times daily. 1 tablet by mouth 3x daily As needed forchest pain 0 ActiveComment on above:Take 0.4 mg by mouth three times daily. 1 tablet by mouth 3x daily As needed for chest pain Corwith-3 1000 mg oral capsule (2 sources)Start: 71-87-9104Gvzbh-3 1000 mg oral capsule mg cap(s), Oral, Refills(s) 0 Start Date: 10/10/24 Status: Ordered Repeat number: 1Osteo Bi-Flex Triple Strength (2 sources)Start: 19-09-9402Lfnxi Bi-Flex Triple Strength Refill(s) 0 Start Date: 10/10/24 Status: Ordered Repeat number: 1oxybutynin chloride 5 mg oral tablet (2 sources)Cholinergic Muscarinic AntagonistStart: 96-00-6676varr 1 tablet by mouth once dailyoxybutynin 5 mg Tab 5 mg = 1 tab(s), Oral, Daily, # 30 tab(s), Refills(s) 0, Pharmacy: [facility]/pharmacy#[id number], 150, cm, 10/10/24 10:18:00 EDT, Height/Length Dosing, 80, kg, 10/10/24 10:18:00 EDT, Weight Dosing Start Date: 10/10/24 Status: Ordered Quantity: 30.0 Unit: tab(s) Repeat number: 1 Indications:Overactive bladder;pantoprazole 40 mg delayed release oral tablet (3 sources)Proton Pump InhibitorStart: 09-69-8606wxxm 1 mg by mouth once daily Pantoprazole [address] Tab mg tab(s), Oral, Daily, Refills(s) 0 Start Date: 10/10/24 Status: Ordered Repeat number: 1Start: 69-99-8186yqqx 1 tablet by mouth once dailypantoprazole (ProtoNix) 40 MG EC tablet Take 40 mg by mouth Daily 10/13/2023 ActivePotassium Chloride (2 sources)Start: 28-87-7839gdijwwfvy chloride Refills(s) 0 Start Date: 10/10/24 Status: Ordered Repeat number: 1Salonpas Pain Patch (2 sources)Start: 00-72-4822Vqlhynqg Pain Patch Refill(s) 0 Start Date: 10/10/24 Status: Ordered Repeat number: 1trolamine salicylate (1 source)Trolamine Salicylate (BLUE-EMU MAXIMUM PAIN RELIEF EX) Apply topically ActiveZinc-Magnesium Aspart-Vit B6 (Zinc Magnesium Aspartate) 150-3.83-10 MG capsule (1 source)Zinc-Magnesium Aspart-Vit B6 (Zinc Magnesium Aspartate) 150-3.83-10 MG capsule 1 (one) time each day at the same time. Active Completed/Discontinued Medications MedicationDrug Class(es)DatesSig (Normalized)Sig (Original)Calcium Carbonate / vitamin D3 (3 sources)calcium carbonate/vitamin D3 (CALTRATE 600 + D ORAL) Take by mouth twice daily. 0 ActiveComment on above:Take by mouth twice daily.capsaicin 0.98652 mg/mg medicated patch (3 sources)Capsaicin (SALONPAS-HOT) 0.025 % ptmd Apply to affected area. 0 ActiveComment on above:Apply to affected area.glucosamine HCl/S-Adenosylmet (TRIPLE FLEX MOOD & JOINT JESSY-E ORAL) (3 sources)take 1 tablet by mouth twice daily in the morningglucosamine HCl/S- Adenosylmet (TRIPLE FLEX MOOD & JOINT JESSY-E ORAL) Take by mouth twice daily. T ablet contains Glucosamine 1500 mg Chodroitin 800 mg MSM 750 mg 1 tablet twice daily am and pm 0 ActiveComment on above:Take by mouth twice daily. Tablet contains Glucosamine 1500 mg Chodroitin 800 mg MSM 750 mg 1 tablet twice daily am and pmhydroCHLOROthiazide 25 mg oral tablet (3 sources)Thiazide Diuretictake 1 tablet by mouth once dailyhydroCHLOROthiazide 25 mg tablet Take 25 mg by mouth once daily. 0 ActiveComment on above:Take 25 mg by mouth once daily.MULTIVITAMIN ORAL (3 sources)MULTIVITAMIN ORAL Take by mouth. Equate with Lycopene Complete Multivitamin 0 ActiveComment on above:Take by mouth. Equate with Lycopene Complete Multivitamin Problems Active Problems Problem ClassificationProblemDateDocumented DateEpisodic/ChronicAnxiety disorders (2 sources)Mixed anxiety and depressive onmsbrkv25-35-5582NhoiwgzCjgpzwfwe and vision defects (1 source)Unspecified visual loss; Translations: [UNSPECIFIED VISUAL LOSS]Onset: 45-69-1684FvjcxmoFieacwq dysrhythmias (2 sources)Supraventricular rjvfpgshibh77-62-0166OkbqwxwCvurmqrwpq heart failure; nonhypertensive (5 sources)Unspecified diastolic (congestive) heart failure; Translations: [Congestive heart failure]Onset: 312593-11-4010CkxaxteApheclgd atherosclerosis and other heart disease (4 sources)Coronary zjeiyksikqolvnzw49-17-4169HtnwfytZnnmiocqds and other anemia (2 sources)Anemia, unspecified; Translations: [ANEMIA UNSPECIFIED]Onset: 86-23-9633UxxqwlquCqvhisdn, dementia, and amnestic and other cognitive disorders (4 sources)Flxsyzzn38-40-1436VcuraxoNsmhzhmk of white blood cells (4 sources)Emmoraxykom38-01-2896DlwyslnEkpqwyjdt of lipid metabolism (7 sources)Hyperlipidemia, unspecified; Translations: [Hyperlipidemia]Onset: 994524-73-2084BltnitdMoiudogsu hypertension (8 sources)Essential (primary) hypertension; Translations: [Essential hypertension]Onset: 237162-46-9065RycrgxmZfrlb and electrolyte disorders (10 sources)Dehydration; Translations: [Hypo-osmolality and hyponatremia]Onset: 06-88-8156BttgzziwRemvugawohxsr symptoms and ill-defined conditions (4 sources)Stress incontinence (female) (male); Translations: [Female stress incontinence]Onset: 98-26-5048BfkuexvJiibabqnvciku symptoms and ill-defined conditions (12 sources)Dysuria; Translations: [Other abnormal findings in urine]Onset: 53-69-5669DamztqwrXftscwgbdagq with complications and secondary hypertension (4 sources)Hypertensive heart disease with heart failure; Translations: [HTN HEART DISEASE W/HEART FAIL]Onset: 08-25-9182LkhfqdoYzjspjpfdkmg breast conditions (1 source)Fibrocystic disease of breast; Translations: [Diffuse cystic mastopathy of unspecified breast]Onset: 674175-26-1672YradodrCaqogwrmzjm chest pain (3 sources)Chest pain, unspecified; Translations: [Chest pain]Onset: 11-13-2021 01-07-6131MgqhhttzBuhhyejooqz deficiencies (1 source)Vitamin D deficiency, unspecified; Translations: [VITAMIN D DEFICIENCY UNSPECIFIED]Onset: 38-68-0731SvyftfdNhzj wounds of extremities (2 sources)Laceration of upper oyt94-30-9255NfnymmajAjwlvtiymizcdq (8 sources)Bilateral primary osteoarthritis of hip; Translations: [Unspecified osteoarthritis, unspecified site]Onset: 282502-73-0366RnqvaupVwbmmkhnkvyx (2 sources)Senile cpkedabcgrrm44-15-5024DjfgdorDejeb acquired deformities (4 sources)Scoliosis of lumbar spine; Translations: [Scoliosis, unspecified] Onset: 47-16-3517BmxtwbdWdslx acquired deformities (5 sources)Scoliosis deformity of spine; Translations: [Scoliosis, unspecified] Onset: 679113-10-4884AfkovpiZovla acquired deformities (1 source)Scoliosis, unspecified; Translations: [SCOLIOSIS UNSPECIFIED]Onset: 78-52-3329IewwnvdSrlro acquired deformities (1 source)Lumbar spondylolisthesis; Translations: [Spondylolisthesis, lumbar region]EpisodicOther bone disease and musculoskeletal deformities (1 source)Idiopathic scoliosis of lumbar spine; Translations: [Other idiopathic scoliosis, lumbar region]ChronicOther circulatory disease (2 sources)Easy ndodqfse36-91-7476RqxvfnclObkac connective tissue disease (1 source)Presence of right artificial knee joint; Translations: [PRESENCE RT ARTIFICIAL KNEE JOINT]Onset: 97-89-6116BjikkiuIeyqo connective tissue disease (5 sources)Other muscle spasm; Translations: [OTHER MUSCLE SPASM]Onset: 08-42-5635TtiysbucUbnxg diseases of bladder and urethra (2 sources)Detrusor overactivity; Translations: [Overactive bladder]Onset: 67-44-3468FkjcltvEpiuk diseases of bladder and urethra (2 sources)Overactive ldbxaxj51-00-4277ZzyjpsdQvcfv diseases of veins and lymphatics (2 sources)Stasis vpiqhfcqda09-62-5827YdxucapqZvoun ear and sense organ disorders (2 sources)Otitis nqzmdas21-88-6776RfcwhqiTcjmh nervous system disorders (4 sources)Other specified mononeuropathies of right lower limb; Translations: [OTH SPEC MONONEUROPATH RT LOW LIMB]Onset: 62-04-8807UrgigufMtiou nervous system disorders (4 sources)Other specified mononeuropathies; Translations: [OTHER SPECIFIED MONONEUROPATHIES]Onset: 30-27-7967BhietxgUyvfc nervous system disorders (1 source)Other chronic pain; Translations: [OTHER CHRONIC PAIN]Onset: 17-39-1800LknclueUaxla non-traumatic joint disorders (2 sources)Allergic arthritis of the shoulder tmcxzy72-38-9385XbursazWzmzw non- traumatic joint disorders (2 sources)Bilateral arthritis of uqgdz27-79-8793EuifnggBifgs non-traumatic joint disorders (5 sources)Pain in right hip; Translations: [PAIN IN RIGHT HIP]Onset: 05-13-2022 EpisodicOther nutritional; endocrine; and metabolic disorders (4 sources)Obese class I; Translations: [Obesity, unspecified]Onset: 09-21-2022 48-91-0009AmmasjpQuhun nutritional; endocrine; and metabolic disorders (2 sources)Body mass index 30+ - -40-3286VevybkhSdrin nutritional; endocrine; and metabolic disorders (2 sources)Abrycil88-95-7184WryrxhqWkqhz screening for suspected conditions (not mental disorders or infectious disease) (6 sources)Encounter for screening mammogram for malignant neoplasm of breast; Translations: [Patient encounter status]Onset: 07-95-8050TizlcucdQuckb upper respiratory disease (2 sources)Allergic klqsirek64-95-2600JqrqzpuPurub upper respiratory disease (2 sources)Seasonal allergic pannmldu23-12-4058BxumijoGjtsdheal heart disease (2 sources)Secondary pulmonary imvsbzbyhzsh98-71-7883IoffzrcSqzqukol codes; unclassified (2 sources)Obstructive sleep apnea fzjiehta20-27-0453ZfknheuKiuofira codes; unclassified (2 sources)Sleep dzwfo15-38-2420ChfkoaoEnjfjixj codes; unclassified (2 sources)Stognim19-87-2464RytgbngdEcsvniyf codes; unclassified (2 sources)Clouded afzouyeqoczyu48-75-3177PamngfohGxtxitrh codes; unclassified (2 sources)Mdqds77-23-2984FxyzsodlMrbxsrwf codes; unclassified (4 sources)Poor short-term thopbs17-18-4998KseemhhoQgoqflzqqce failure; insufficiency; arrest (adult) (2 sources)Chronic respiratory mbwyqnb38-08-2607AwfraatSshvbffekiw; intervertebral disc disorders; other back problems (20 sources)Lumbar spondylosis; Translations: [Spondylosis without myelopathy or radiculopathy, lumbar region]Onset: 18-95-0047OabqnruBnoqkzfrepc; intervertebral disc disorders; other back problems (18 sources)Chronic low back pain; Translations: [Lumbago with sciatica, right side]Onset: 30-82-8325ZbvigcspUgoacgd disorders (13 sources)Hypothyroidism, unspecified; Translations: [Thyrotoxicosis, unspecified without thyrotoxic crisis or storm]Onset: ChronicTransient cerebral ischemia (2 sources)Transient cerebral lesfspog91-40-3580QbhxtyzYooptcwranmq (4 sources)LOW BACK PAIN, UNSPECIFIED; Translations: [LOW BACK PAIN, UNSPECIFIED]Onset: 58-31-3370Htohgdeivwxx (1 source)PERSONAL HISTORY OF COVID-19; Translations: [PERSONAL HISTORY OF COVID-19]Onset: 13-94-4063Wsfedccrctmg (1 source)CONTACT W/AND (SUSP) EXPOS COVID-19; Translations: [CONTACT W/AND (SUSP) EXPOS COVID-19]Onset: 50-44-5905Gvhskzxzycwk (2 sources)Arthropathies and related disorders (navigational concept)10-10-2024 Unclassified (2 sources)Asymptomatic microscopic xuvaurnzu37-87-5875Tpdrw infection (1 source)COVID-19; Translations: [COVID-19]Onset: 11-13-2021 Past or Other Problems Problem ClassificationProblemDateDocumented DateEpisodic/ChronicConditions associated with dizziness or vertigo (4 sources)Dizziness and giddiness; Translations: [DIZZINESS AND GIDDINESS] Onset: 39-07-7160HgfqckeeEdkggstc mellitus without complication (1 source)Other abnormal glucose; Translations: [OTHER ABNORMAL GLUCOSE]Onset: 28-59-4835EtiuhprkGgvadul and fatigue (4 sources)Weakness; Translations: [WEAKNESS]Onset: 65-23-5834DvriddwrHiigen and vomiting (1 source)Nausea with vomiting, unspecified; Translations: [NAUSEA WITH VOMITING UNSPECIFIED]Onset: 96-68-7288ReofiiheCrkyo aftercare (1 source)residential (current) use of aspirin; Translations: [BALLET PROFESSOR CURRENT USE OF ASPIRIN]Onset: [id number] aftercare (1 source)Other terminal system operator (current) drug therapy; Translations: [OTH BALLET PROFESSOR CURRENT DRUG THERAPY]Onset: 71-04-1740AviazbqzJonqa bone disease and musculoskeletal deformities (1 source)Other specified disorders of bone density and structure, unspecified site; Translations: [OTH D/O BONE DEN STRUCT UNS SITE]Onset: 72-67-2348Htigtwlq Other circulatory disease (1 source)Personal history of transient ischemic attack (TIA), and cerebral infarction without residual deficits; Translations: [PERS HX TIA AND CI NO RESID DEFICIT]Onset: 87-44-7995GxkicwesMpvhq connective tissue disease (1 source)Sarcopenia; Translations: [SARCOPENIA]Onset: 51-13-7731DaijwpphNdevk gastrointestinal disorders (1 source)Diarrhea, unspecified; Translations: [DIARRHEA UNSPECIFIED]Onset: 45-53-7381ZcybjeacVquwt lower respiratory disease (1 source)Chronic cough; Translations: [CHRONIC COUGH]Onset: 75-17-8600Bgmrfgyq Other non-traumatic joint disorders (5 sources)Pain in right knee; Translations: [PAIN IN RIGHT KNEE]Onset: 55-71-2526IylztnlnGmesvggk codes; unclassified (1 source)Acquired absence of both cervix and uterus; Translations: [ACQUIRED ABSENCE BOTH CERVIX AND UTERUS]Onset: 86-87-7765ZnareeszActfcsnu codes; unclassified (1 source)Acquired absence of other specified parts of digestive tract; Translations: [ACQ ABSENCE OTH PART DIGESTV TRACT]Onset: 54-95-6355Iasaidwz Unclassified (1 source)LOW BACK PAIN, UNSPECIFIED; Translations: [LOW BACK PAIN, UNSPECIFIED] Onset: 04-06-2022 Results Test NameValueInterpretationReference RangeFacilityUrology Office/Clinic Noteon 80-01-3541Pyqtldf Office/Clinic NoteUrology Office/Clinic Note Chief Complaint Pt here for [...] day(s), # 30 tab(s), Refills(s) 3, Pharmacy: [facility]/pharmacy #[id number], 150, cm, 11/14/24 15:17:00 EDT, Height/Length Dosing, 79.9, kg, 11/14/24 15:17:00 EDT,Weight Dosing 2. Incomplete bladder emptying (R33.9: Retention of urine, unspecified) PVR (cc): 10/10/24 - 146 11/14/24 - PVR improved. Pt reassured she is emptying better. -Cont sx monitoring Ordered: 80082 Measure Post Void residual urine and/or bladder [...] Urnls Dip Stick Auto w/o Microscopy POC 78187 3. NILESH (stress urinary incontinence, female) (N39.3: [...] Cervical spondylosis Chest pain (more content not included)...[facility] Comment on above:Result Comment: Electronically Signed By: Jacinta Long PA-C\.br\Date and Time Signed: 11/14/24 16:19 EDTUrinalysis with Microon 19-17-6427Qpddx (U)ColorlessAbnormalYChillicothe VA Medical CenterComment on above:Result Comment: Microscopic readings are only performed on those samples that meet specific criteria set forth by [facility]. Performed By: #### [id number] #### [facility] [address], [place] [address]Hqsroaw (U) [Mass/Vol]NegativeNormalNegativeMemorial Health System Marietta Memorial HospitalComment on above:Performed By: #### [id number] #### [facility] [address], [place] [address]Wkfxlgy Ql (U)NegativeNormalNegBrecksville VA / Crille Hospital Comment on above:Performed By: #### [id number] #### [facility] [address] [place], [place] [address]GJ BloodTraceAbnormalNegativeMemorial Health System Marietta Memorial HospitalComment on above:Performed By: #### [id number] #### [facility] [address], [place] [address]DA ClarityClearNormalClearMemorial Health System Marietta Memorial HospitalComment on above:Performed By: #### [id number] #### [facility] [address], [place] [address]AA Leuk EstNegativeNormalUniversity Hospitals Ahuja [facility] Comment on above:Performed By: #### [id number] #### [facility] [address], [place] [address]SX NitriteNegativeNoPremier Health Comment on above:Performed By: #### [id number] #### [facility] [address], [place] [address]WG pH6.0Invalid Interpretation Code5.0-9.0[facility] HospitalComment on above:Performed By: #### [id number] #### [facility] [address], [place] [address]PX ProteinNegativeNormalNegBrecksville VA / Crille Hospital Comment on above:Performed By: #### [id number] #### [facility] [address], [place] [address]TR Spec Grav1.006Invalid Interpretation Code1.005-1.030[facility] HospitalComment on above:Performed By: #### [id number] #### [facility] [address], [place] [address]VV UrobilinogenNegativeNormalNegBrecksville VA / Crille HospitalComment on above:Performed By: #### [id number] #### [facility] [address], [place] [address]Anlmgydcmhwl (U) [Mass/Vol]NegativeNormalNegativeMemorial Health System Marietta Memorial HospitalComment on above:Performed By: #### [id number] #### [facility] [address], [place] [address]HY Spec DescClean CatchNormBucyrus Community HospitalComment on above:Performed By: #### [id number] #### [facility] [address], [place] [address]Jfvha Cultureon 27-37-1048Vvayarsy identified Cx Nom (U)No Growth 2 Days PERFORMED BY: [facility] [address] [id number] PATHOLOGIST CARGO WORKER BRAULIO CARDOZO M.D.[facility] Physician GroupComment on above: Performed By: #### CUU #### [facility] [address] [id number] USACNOVon 84-05-3860BMYAVjrfja Visit (NSADHC) ALEXA DELGADO ([id number]) 1940 F Date Time Provider Department 09/21/22 1:00 PM CAROLYN VANEGAS [facility] During your visit today, we recorded the following information about you: Pulse Blood pressure 67/minute 153/60 Carolyn Vanegas MD 09/21/2022 1:20 PM Signed SPINE SURGERY OUTPATIENT CONSULT SERVICE DATE: 09/21/2022 PCP: Galina aPlmer MD REFERRING PROVIDER: Galina Palmer MD Consult requested for an opinion regarding [...] Physical Function Percentile 2 (more content not included)...NormalOhio State Health SystemXR LSPINE 2_3 VIEWSon 91-92-5487KY LSPINE 2_3 VIEWSEXAMINATION: XR LSPINE 2_3 VIEWS HISTORY: Lumbar spondylosis [...] with rotatory dextroscoliosis Electronically authenticated by: HERMES SUAREZ Date: 2022-07-16 11:34[facility] 88-63-7158SNKZFvmyrh Visit (SPMESH) ALEXA DELGADO ([id number]) 1940 F Date Time Provider Department 05/14/22 2:30 PM [facility] During your visit today, we recorded the following information about you: Pulse Blood pressure Weight Height 72/minute 158/87 76.4 kg 1.524 m Marty Dozier DO 05/15/2022 10:02 PM Signed [facility] [...] Pain Level: 6 Pain Location: Back Description: Aching;Burning;Sharp;Shooting;Sore;Stabbing;Throbbing;Tingling Duration Units: Months Frequency: Continuous Intervention/Comfort measure: Medication;Reposition;Relaxation;Exercise;Heat;Pillow support;Positioning;Support surface Comments: Spinal Injection, RF Ablation Pain Radiation: As above Aggravating Factors: Prolonged standing Transfers Turning/shifting in bed Alleviating Factors: Medications Pain Ratio: R>L low back Current Treatment: Medications [place] 5-325 mg BID - helps Diclofenac 75 [...] but still has pain -01/28/22 Noemi Sequeira CARPENTER LABOR SUPERVISOR: BL Lumbar erector spinae TPI (0.125% Marcaine, [...] ongoing as of 04/17/21 -03/08/21 Noemi Sequeira CARPENTER LABOR SUPERVISOR: Left rhomboid TPI (0.125% Marcaine, 40 mg Kenalog) -02/03/21 LESI - moderate relief for 4 days Prior spine surgery: -2006 L4-5 Discectomy Previously treated by: -[facility], previously Dr. Niko [...] today. She has an evaluation at the [facility] tomorrow at the [facility]. RECOMMENDATIONS: We will see the pat (more content not included)...Normal [facility] ClevelandCULTURE URINEon 36-36-4758ETWPEII URINECulture Observations: LIGHT GROWTH OF MIXED GENITAL ALANIS. NO POTENTIAL PATHOGENS SEEN.NormalThe [facility]y HospitalComment on above:Performed By: #### URCX ####[facility] [address]iaanb[address] [place], [place] [address]Dr. Yilan ChangUA RANDOM W/MICROSCOPICon 69-41-1649HRSOJHFSWUHU SEENNormalNONE SEENMary [facility] Comment on above:Performed By: #### UAMIC ####[facility] Qlkwqecypl[address] [place], [place] [address]Dr. Yilan ChangBilirubin Ql (U)Negative NormalNEGATIVEMary Rutan HospitalComment on above:Performed By: #### UAMIC ####[facility] Mlxrilxjem814[address] [place], [place] [address]Dr. Yilan ChangCASTNONE SEENNormalNONE SEENMary Rutan HospitalComment on above: Performed By: #### UAMIC ####[facility] Kurvgbsybd69[address] [place], [place] [address]Dr. Yilan ChangClarity (U)CLEARNormalCLEARMary Rutan HospitalComment on above:Performed By: #### UAMIC ####[facility] Zyxtdbpkim8[address] [place], [place] [address]Dr. Yilan ChangColor (U) YELLOWNormalYELLOWCleveland Clinic South Pointe Hospital HospitalComment on above:Performed By: #### UAMIC ####[facility] Qzzdzrbsdt7[address] [place], [place] [address]Dr. Yilan ChangCrystals LM Nom (Urine sed)NONE SEENNormalNONE SEENMary Rutan HospitalComment on above:Performed By: #### UAMIC ####[facility] Sgtokdojia380[address] [place], [place] [address]Dr. Yilan ChangEpithelial cells LM Ql (Urine sed)RARENormalNONE SEEN /RAREMary Rutan HospitalComment on above:Performed By: #### UAMIC ####[facility] Tgiwgweqli5[address] [place], [place] [address]Dr. Yilan ChangGlucose Ql (U)NegativeNormalNEGATIVEMary Rutan HospitalComment on above:Performed By: #### UAMIC ####[facility] Iujjyebyyh[address] [place], [place] [address]Dr. Benitalan Abdul Hemoglobin Ql (U)MODERATEAbnormalNEGATIVEThe [facility]eland HospitalComment on above: Performed By: #### UAMIC ####[facility] Kpbzgcsbfy[address] [place], [place] [address]Dr. Yilan ChangKetones Ql (U)TRACEAbnormalNEGATIVEThe [facility] HospitalComment on above:Performed By: #### UAMIC ####[facility] Ridiyutrhx[address] [place], [place] [address]Dr. Yilan ChangLEUKOCYTES TRACEAbnormalNEGATIVEThe [facility] HospitalComment on above:Performed By: #### UAMIC ####[facility] Jouqnxxlmu[address] [place], [place] [address]Dr. Yilan ChangMUCOUSNONE SEENNormalNONE SEENCleveland Clinic South Pointe Hospital HospitalComment on above:Performed By: #### UAMIC ####[facility] Ozbtmntdfb413[address] [place], [place] [address]Dr. Grace ChangNitrite Ql (U)NegativeNormalNEGATIVE The [facility] HospitalComment on above:Performed By: #### UAMIC ####[facility] Wrwzrplzga02[address] [place], [place] [address]Dr. Yilee ann ChangpH (U)5.0 [pH]Normal5-9The [facility] HospitalComment on above:Performed By: #### UAMIC ####[facility] Cnidcfawad[address] [place], [place] [address]Dr. Grace AnexuBPE3-3Ffcvvf3-3Uuf [facility] HospitalComment on above: Performed By: #### UAMIC ####[facility] Ranxczqkrk3934[address] [place], [place] [address]Dr. Yilan FrankoSPEC GRAVITY1.251Epnrjp4.005-<=1.025The [facility] HospitalComment on above:Performed By: #### UAMIC ####[facility] Vabffulgnh[address] [place], [place] [address]Dr. Yilan ChangUA PROTEINNegativeNormalNEGATIVE/ TRACEThe [facility] HospitalComment on above: Performed By: #### UAMIC ####[facility] Ixvsitatua[address] [place], [place] [address]Dr. Benitalan ChangUrobilinogen Qn (U)0.2 {Ashley'U}/dL Normal0.2 - 1.0The [facility] HospitalComment on above:Performed By: #### UAMIC ####[facility] [address] [address]Dr. Yilan ChangWBC0-2AbnormalNONE SEENThe [facility] HospitalComment on above: Performed By: #### UAMIC ####[facility] Gptoboybws[address] [place], [place] [address]Dr. Benitalan ChangCBC AUTO DIFFon [id number] #0.0 103/ulNormal0.0-0.1The [facility] HospitalComhawthorn center on above:Performed By: #### CBC ####[facility] Uwascglnif266[address] [place], [place] [address]Dr. Benitalee ann ChangBasophils/100 WBC (Bld)0.4 %Normal0.2-2.0The [facility] on above:Performed By: #### CBC ####[facility] Zungngerde4[address] [place], [place] [address]Dr.Yilan ChangEO #0.1 103/ulNormal0.0-0.7The [facility] HospitalComhawthorn center on above:Performed By: #### CBC ####[facility] Xkwtcuofsx8838[address] [place], [place] [address]Dr.Benitalee ann ChangEosinophils/100 WBC (Bld)1.3 %Normal0.9-7.0The [facility] Harding Hospitalment on above:Performed By: #### CBC ####[facility] Eppayfkyau[address] [place], [place] [address]Dr.Benitalan ChangErythrocyte distribution width (RBC) [Ratio]13.7 %Normal 11.0-15.0The [facility] on above:Performed By: #### CBC ####[facility] Hqevmsonsb047[address] [place], [place] [address]Dr. Benitalee ann ChangHematocrit (Bld) [Volume fraction]37.2 %Sxqvjn47.0-48.0The [facility] HospitalComment on above:Performed By: #### CBC ####[facility] [address] [address]Dr.Grace ChangHemoglobin (Bld) [Mass/Vol]12.4 g/jCRlrsbs13.0-16.0The [facility] HospitalComment on above: Performed By: #### CBC ####[facility] Tbgeewkjab984[address] [place], [place] [address]Dr.Benitalee ann ChangIG #0.02 10e3/ulNormal0.00-0.03The [facility] HospitalComment on above:Performed By: #### CBC ####[facility] Nsycaalrwx266[address] [place], [place] [address]Dr.Benitalee ann AbdulIG %0.4 %Normal 0.0-0.5The [facility] HospitalComment on above:Performed By: #### CBC ####[facility] Yhfxicbasw1932[address] [place], [place] [address]Dr.Grace AbdulLYMPH #0.8 103/ulCritically low1.2-3.8The [facility] HospitalComment on above:Performed By: #### CBC ####[facility] Hhqylcxexe864[address] [place], [place] [address]Dr.Benitalee ann AbdulLymphocytes/100 WBC (Bld)13.9 %Critically low20.5-60.0 The [facility] HospitalComment on above:Performed By: #### CBC ####[facility] Rkglngtvru[address] [place], [place] [address]Dr.Grace AbdulMANUAL DIFF REQNONormalThe [facility] HospitalComment on above:Performed By: #### CBC ####[facility] Gsrvvpadzb7814[address] [place], [place] [address]Dr. Grace AbdulMCH (RBC) [Entitic mass]30.5 jeVuxykd51.7-34.0The [facility] Comment on above:Performed By: #### CBC ####[facility] Zlcyjzmipi238[address] [place], [place] [address]Dr.Grace AbdulMCHC (RBC) [Mass/Vol]33.3 g/dL Fvrfig18.9-35.2The [facility] HospitalComment on above:Performed By: #### CBC ####[facility] [address] [address]Dr. Grace AbdulMCV (RBC) [Entitic vol]91.4 jFXzaxig37.0-99.0[facility] Comment on above:Performed By: #### CBC ####[facility] Qeylmsxonl[address] [place], [place] [address]Dr.Grace AbdulMONO #0.7 103/ulNormal0.3-0.8 The [facility] HospitalComment on above:Performed By: #### CBC ####[facility] Wrakfwejqe7567[address] [place], [place] [address]Dr.Grace Abdul Monocytes/100 WBC (Bld)13.5 %Critically high1.7-12.0The [facility] HospitalComment on above:Performed By: #### CBC ####[facility] Bytfonfons[address] [place], [place] [address]Dr.Grace AbdulNEUT #3.8 103/ulNormal1.4-6.5The [facility] HospitalComment on above:Performed By: #### CBC ####[facility] Bklsxgyfqi399[address] [place], [place] [address]Dr.Benitalee ann FrankoNeutrophils/100 WBC (Bld)70.5 %Vtgfmx77.0-75.0The [facility] HospitalComment on above:Performed By: #### CBC ####[facility] Eslruzjbhq74[address] [place], [place] [address]Dr.Benitalee ann AbdulPlatelet mean volume (Bld) [Entitic vol]9.0 fLCritically low 9.5-13.5The [facility] HospitalComment on above:Performed By: #### CBC ####[facility] Siiijlcaeq9[address] [place], [place] [address]Dr. Grace AbdulPLT283 103/iqBtgchq842-893Oqk [facility] HospitalComment on above: Performed By: #### CBC ####[facility] Cvdlwnedbu9[address] [place], [place] [address]Dr.Grace AbdulRBC4.07 106/ulCritically low4.20-5.40The [facility] HospitalComment on above:Performed By: #### CBC ####[facility] E[address]udytyzg[address] [place], [place] [address]LwKem AbdulWBC5.4 103/ul Normal4.0-11.0The [facility] HospitalComment on above:Performed By: #### CBC ####[facility] T[address]izpzghw[address] [place], [place] [address]GxLisette AbdulCT ABD/PELV W CONon 64-57-6777ZH ABD/PELV W CONEXAM: CT ABD/PELV W CON TECHNIQUE: Axial CT [...] Electronically authenticated by: EMILY NAVARRETE Date: 2022-04-04 16:59NoAden[facility] URINE PROFILEon 34-34-9178Iqdkjdylz Ql (U)NegativeNormal NEGATIVEMary Rutan HospitalComment on above:Performed By: #### ROBERT KIRKLAND ####[facility] [address] [id number]. Yilan ChangClarity (U)CLEARNormalCLEARMary Rutan HospitalComment on above: Performed By: #### ROBERT KIRKLAND ####[facility] [address] [address]Dr. Yilan ChangColor (U)LT. YELLOWNormalYELLOWMary Rutan HospitalComment on above:Performed By: #### ROBERT KIRKLAND ####[facility] Zpcxsgxgtd[address] [place], [place] [address]Dr. Yilan ChangERUAHD A micrscopic examination will be performed if indicated.NormalThe [facility]y HospitalComment on above:Performed By: #### ROBERT KIRKLAND ####[facility] Orbvjzsplp[address] [place], [place] [address]Dr. Yilan ChangGlucose Ql (U) NegativeNormalNEGATIVEMary Rutan HospitalComment on above:Performed By: #### ROBERT KIRKLAND ####[facility] Lnzdldtocs[address] [place], [place] [address]Dr. Yilan ChangHemoglobin Ql (U)SMALLAbnormalNEGATIVEMary [facility] Hospital Comment on above:Performed By: #### ROBERT KIRKLAND ####[facility] Qdoshldato[address] [place], [place] [address]Dr. Yilan ChangKetones Ql (U) NegativeNormalNEGATIVEMary Rutan HospitalComment on above:Performed By: #### ROBERT KIRKLAND ####[facility] K[address]vrastbf[address] [place], [place] [address]Dr. Yilan ChangLEUKOCYTESTRACEAbnormalNEGATIVEMary Rutan HospitalComment on above:Performed By: #### ROBERT KIRKLAND ####[facility] [address] [id number]. Grace AbdulNitrite Ql (U)NegativeNormal NEGATIVEThe [facility]y HospitalComment on above:Performed By: #### ROBERT KIRKLAND ####[facility] [address] [id number]. Grace ChangpH (U)7.5 [pH]Normal5-9The [facility] HospitalComment on above: Performed By: #### ROBERT KIRKLAND ####[facility] Jphgbfzhjh[address] [place], [place]Dr. Grace AbdulSPEC GRAVITY1.880Rbxpel2.005-<=1.025The [facility] HospitalComment on above:Performed By: #### ROBERT KIRKLAND ####[facility] Rmlhjrnsah47[address] [place], [place]Dr. Grace AbdulUA PROTEINNegativeNormalNEGATIVE/ TRACEThe [facility] HospitalComment on above: Performed By: #### ROBERT KIRKLAND ####[facility] F[address]puwpsgh[address] [place], [place]Dr. Grace AbdulUR MICRO INDINDICATEDNormalThe [facility] HospitalComment on above:Performed By: #### ROBERT KIRKLAND ####[facility] Evqbuwrbum6960 [place], [place]Dr. Grace AbdulUrobilinogen Qn (U)0.2 {Ashley'U}/dLNormal0.2 - 1.0The [facility] HospitalComment on above: Performed By: #### GINA KIRKLANDRO ####[facility] Qmyzzjokcy7396 [place], [place]Dr. Grace AbdulLIPASEon 59-88-9666Jzgqft [Catalytic activity/Vol]115.0 U/MJnvhpy62.0-393.0The [facility] HospitalComment on above: Performed By: #### CVDTBH #### [facility] [address] [place], [place] [address] Dr. Grace Reno 14(COMP METB)on 90-95-2995Kkstymx [Mass/Vol]3.6 g/dLNormal 3.4-5.0The [facility] HospitalComment on above:Performed By: #### CVDTBH #### [facility] [address] [place] [address] Dr. Grace AbdulAlbumin/Globulin [Mass ratio]1.1 {ratio}NormalThe [facility] HospitalComment on above:Performed By: #### CVDTBH #### [facility] [address] [place] [address] Dr. Grace CalderonP [Catalytic activity/Vol]74 U/DPhlmxk72-067Vcb [facility] HospitalComment on above:Performed By: #### CVDTBH #### [facility] [address] [place] [address] Dr. Grace CalderonT [Catalytic activity/Vol]23 U/XTilojc00-71Lcn [facility] HospitalComment on above:Performed By: #### CVDTBH #### [facility] [address] [place] [address] Dr. Grace Kauffmanon gap [Moles/Vol]12.1 mmol/LNormalThe [facility] Comment on above:Performed By: #### CVDTBH #### [facility] [address] [place] [address] Dr. Grace AbdulAST [Catalytic activity/Vol]21 U/IPzumel18-97Mzh [facility] HospitalComment on above:Performed By: #### CVDTBH #### [facility] [address] [place] [address] Dr. Grace AbdulBilirubin [Mass/Vol]0.2 mg/dLNormal0.2-1.0The [facility] Comment on above:Performed By: #### CVDTBH #### [facility] [address] [place] [address] Dr. Grace AbdulCalcium [Mass/Vol]9.3 mg/dLNormal8.5-10.1The [facility] Comment on above:Performed By: #### CVDTBH #### [facility] [address] [place] [address] Dr. Grace AbdulChloride [Moles/Vol]99 mmol/MBghymb72-094See [facility] Comment on above:Performed By: #### CVDTBH #### [facility] [address] [place] [address] Dr. Grace AbdulCO2 [Moles/Vol]31.2 mmol/GElmfte03.0-32.0The [facility] Comment on above:Performed By: #### CVDTBH #### [facility] [address] [place] [address] Dr. Grace AbdulCreatinine [Mass/Vol]1.22 mg/dLCritically high0.55-1.02The [facility] HospitalComment on above:Performed By: #### CVDTBH #### [facility] [address] [place] [address] Dr. Edwards ChangEGFR-AF PCEWWEVA79 mL/min/1.82t3Lkytiromtc low>=60The [facility] HospitalComment on above:Performed By: #### CVDTBH #### [facility] [address] [place] [address] Dr. Grace RichardGFR-NON AF IVXJESYK61 mL/min/1.33b9Gktanuylru low>=60The [facility] HospitalComment on above:Performed By: #### CVDTBH #### [facility] [address] [place] [address] Dr. Grcae AbdulGlobulin (S) [Mass/Vol]3.3 g/dLNormalThe [facility] HospitalComment on above:Performed By: #### CVDTBH #### [facility] [address] [place] [address] Dr. Grace AbdulGlucose [Mass/Vol]115 mg/dLCritically ykus26-591Otj [facility] HospitalComment on above:Performed By: #### CVDTBH #### [facility] [address] [place] [address] Dr. Grace AbdulPotassium [Moles/Vol]3.3 mmol/LCritically low3.5-5.1The [facility] HospitalComment on above:Performed By: #### CVDTBH #### [facility] [address] [address] [address] Grace AbdulProtein [Mass/Vol]6.9 g/dLNormal6.4-8.2The [facility] Comment on above:Performed By: #### CVDTBH #### [facility] [address] [address] [address] Grace AbdulSodium [Moles/Vol]139 mmol/ALeifft916-753Xdi [facility] Comment on above:Performed By: #### CVDTBH #### [facility] [address] [address] [address] Grace Bernal nitrogen [Mass/Vol]23.0 mg/dLCritically high7.0-18.0The [facility] HospitalComment on above:Performed By: #### CVDTBH #### [facility] [address] [address] [address] Grace Bernal nitrogen/Creatinine [Mass ratio]18.9 mg/mgNormalThe [facility] HospitalComment on above:Performed By: #### CVDTBH #### [facility] [address] [address] [address] Grace Marcos MICROSCOPIC ONLYon 09-91-2183FXGHYRRZSHOJ SEENNormalNONE SEENThe [facility] HospitalComment on above:Performed By: #### MARITA UMICRO ####[facility] F[address]fnq[address]rhc[address] [place], [place]Dr. Grace Dunncteria identified Cx Nom (U)NOT INDICATEDNormKettering Health Washington TownshipComment on above:Performed By: #### MARITA UMICRO ####[facility] Lmwx[address]qrkrm[address] [place], [place]Dr. Grace AbdulCASTNONE SEEN NormalNONE SEENMary Rutan HospitalComment on above:Performed By: #### MARITA UMICRO ####[facility] [address] [place], [place] [address]JnDr. Grace Pinedoystals LM Nom (Urine sed)NONE SEENNormalNONE SEENThe [facility] HospitalComment on above:Performed By: #### ERUR, UMICRO ####[facility] [address]af[address] [id number]. Grace Abdul Epithelial cells LM Ql (Urine sed)RARENormalNONE SEEN /RAREThe [facility] Comment on above:Performed By: #### GINA KIRKLANDRO ####[facility] [address] [id number]. Grace ChangMUCOUSNONE SEEN NormalNONE SEENThe Corey HospitalComment on above:Performed By: #### MARITA UMICRO ####[facility] [address] [place] [address]Dr. Grace AbdulWzespQLM8-8Ulecmk5-6Ygl [facility]y HospitalComment on above: Performed By: #### GODWIN KIRKLANDICRO ####[facility] Ikgrxyfpcq[address] [address]Dr. Grace AbdulWBC0-2AbnormalNONE SEENThe [facility]y HospitalComment on above:Performed By: #### MARITA ICRO ####[facility] [address]vcurc[address]ci[address] [place], [place] [address]Dr. Grace AbdulBNPon 86-88-3705Erwhslyzirx peptide B (Bld) [Mass/Vol]665.0 pg/mLNormal<=1,800.0The [facility]y HospitalComment on above:Performed By: #### BMP #### [facility] [address] [address] [address] Grace Casey AUTO DIFFon 45-06-7693NZUT #0.0 103/ulNormal0.0-0.1The [facility]y HospitalComment on above:Performed By: #### CBC ####[facility] [address]qoruzq[address] [place], [place] [address]Dr.Grace AbdulBasophils/100 WBC (Bld)0.5 %Normal0.2-2.0The [facility]y HospitalComment on above:Performed By: #### CBC ####[facility] Vwdkfmwnkb[address] [place], [place] [address]Dr.Grace ChangEO #0.1 103/ulNormal0.0-0.7The [facility] HospitalComment on above:Performed By: #### CBC ####[facility] Hiptuqntmn[address] [place], [place] [address]Dr.Grace ChangEosinophils/100 WBC (Bld)1.9 %Normal 0.9-7.0The [facility] HospitalComment on above:Performed By: #### CBC ####[facility] Udbaywqhfg[address] [place], [place] [address]Dr.Benitalee ann Abdul Erythrocyte distribution width (RBC) [Ratio]13.4 %Wqyqhk04.0-15.0The [facility] HospitalComment on above:Performed By: #### CBC ####[facility] Aijpakedlm[address] [place], [place] [address]Dr.Benitalee ann ChangHematocrit (Bld) [Volume fraction]36.2 %Ikbhmr78.0-48.0The [facility] HospitalComment on above:Performed By: #### CBC ####[facility] Vezpllunbv[address] [place], [place] [address]Dr.Grace ChangHemoglobin (Bld) [Mass/Vol]11.9 g/dL Critically low12.0-16.0The [facility] HospitalComment on above:Performed By: #### CBC ####[facility] Kdokpcbcgq[address] [place], [place] [address]Dr. Grace ChangIG #0.01 10e3/ulNormal0.00-0.03The [facility] HospitalComment on above: Performed By: #### CBC ####[facility] [address]pwzukhvez[address] [place], [place] [address]Dr.Grace ChangIG %0.2 %Normal0.0-0.5The [facility] HospitalComment on above:Performed By: #### CBC ####[facility] Nnrackwmra[address] [place], [place] [address]Dr.Grace ChangLYMPH #0.5 103/ulCritically low1.2-3.8The [facility]y HospitalComment on above:Performed By: #### CBC ####[facility] [address]ka[address] [place] [address]Dr.Grace AbdulLymphocytes/100 WBC (Bld)11.5 %Critically low20.5-60.0The [facility]y HospitalComment on above:Performed By: #### CBC ####[facility] [address] [place] [address]Dr.Grace AbdulMANUAL DIFF REQ NONormalThe [facility]y HospitalComment on above:Performed By: #### CBC ####[facility] Aclwbypxke[address] [place], [place] [address]Dr. Grace AbdulH (RBC) [Entitic mass]31.6 fyVbptvo08.7-34.0The [facility] Comment on above:Performed By: #### CBC ####[facility] Gjqfttrowh[address] [place], [place] [address]Dr.Grace AbdulHC (RBC) [Mass/Vol]32.9 g/dL Gciujh97.9-35.2The [facility] HospitalComment on above:Performed By: #### CBC ####[facility] Mfzxktdhml259[address] [place], [place] [address]Dr. Grace AbdulV (RBC) [Entitic vol]96.0 oDXctsht50.0-99.0The [facility] Comment on above:Performed By: #### CBC ####[facility] Yhqsocnxaq[address] [place], [place] [address]Dr.Grace AbdulMONO #0.6 103/ulNormal0.3-0.8 The [facility]y HospitalComment on above:Performed By: #### CBC ####[facility] Cwsjapgnfc[address] [place], [place] [address]Dr.Grace Abdul Monocytes/100 WBC (Bld)14.4 %Critically high1.7-12.0The [facility] HospitalComment on above:Performed By: #### CBC ####[facility] Wxfbgnvdyj[address] [place], [place] [address]Dr.Grace AbdulNEUT #3.0 103/ulNormal1.4-6.5The [facility] HospitalComment on above:Performed By: #### CBC ####[facility] [address] [place] [address]Dr.Grace AbdulNeutrophils/100 WBC (Bld)71.5 %Vzafwd28.0-75.0The [facility] HospitalComment on above:Performed By: #### CBC ####[facility] [address]lel[address] [place] [address]Dr.Grace AbdulPlatelet mean volume (Bld) [Entitic vol]9.2 fLCritically low 9.5-13.5The [facility] HospitalComment on above:Performed By: #### CBC ####[facility] [address]ld[address] [address]Dr. Grace MauwuHOV157 103/toHrohtp782-873Okd [facility] HospitalComment on above: Performed By: #### CBC ####[facility] [address]pc[address]ekv[address] [address]Dr.Grace AbdulRBC3.77 106/ulCritically low4.20-5.40The [facility]y HospitalComment on above:Performed By: #### CBC ####[facility] Ulex[address]iolo[address] [address]Dr.Grace AbdulWBC4.2 103/ul Normal4.0-11.0The [facility]y HospitalComment on above:Performed By: #### CBC ####[facility] [address]zf[address] [address]Dr. Grace AbdulFREE THYROXINE INDEX T7on 59-81-7210BOK3.80Rximlj9.30-4.50The [facility]y HospitalComment on above:Performed By: #### BMP #### [facility] [address] [address] [address] Grace AbdulT3U35.0 %Iqvhot36.0-39.0The [facility]y HospitalComment on above: Performed By: #### BMP #### [facility] [address] [address] [address] Grace AbdulT4 [Mass/Vol]7.50 ug/dLNormal4.80-13.90The [facility] Comment on above:Performed By: #### BMP #### [facility] [address] [address] [address] Grace FairCOHEMOGLOBIN A1Con 32-13-7501XVA RECOMMENDATIONSEE BELOWNormal The [facility] HospitalComhawthorn center on above:Result Comment: ADA RECOMMENDED LIMIT 4.0 - 6.0 ADA THERAPEUTIC TARGET < 7.0 ACTION SUGGESTED > 7.0Performed By: #### A1C ####[facility] [address] [address]Dr. Grace AbdulGlucose [Mass/Vol]111 mg/dLNormKettering Health Washington TownshipComment on above:Performed By: #### A1C ####[facility] [address]nfptr[address] [address]Dr.Yilan AbdulHbA1c (Bld) [Mass fraction]5.5 %Normal 4.5-6.2The [facility] HospitalComment on above:Performed By: #### A1C ####[facility] Yrunewbnmh[address] [place], [place] [address]Dr.Yilan AbdulIRONon 10-44-1323Clql [Mass/Vol]50.0 ug/dSDhplkd33.0-170.0The [facility] HospitalComment on above:Performed By: #### IRON, VITAD, VITB12 ####[facility] [address] [address]DrLisette AbdulLIPID PROFILE on 67-15-4491TUOC-HDL RATIO NORMSEE BELOWMansfield HospitalComment on above:Result Comment: 3.3 - 4.4 LOW RISK 4.4 - 7.1 AVERAGE RISK 7.1 - 11.0 MODERATE RISK >11.0 HIGH RISKPerformed By: #### BMP #### [facility] [address] [address] [address] Grace AbdulCholesterol [Mass/Vol]182 mg/dLNormal<=200The [facility] Comment on above:Performed By: #### BMP #### [facility] [address] [address] [address] Grace Greeresterol in HDL [Mass/Vol]60 mg/rRXfmbdj69-64Ute [facility] HospitalComment on above:Performed By: #### BMP #### [facility] [address] [address] [address] Grace AbdulCholesterol in LDL [Mass/Vol]101.2 mg/dLMansfield HospitalComment on above:Performed By: #### BMP #### [facility] [address] [address] [address] Grace AbdulCholesterol.total/Cholesterol in HDL [Mass ratio]3.0 {ratio} NormalThe Corey HospitalComment on above:Performed By: #### BMP #### [facility] [address] [place] [address] Dr. Grace Lopez NORMAL> or = 60 mg/dl - LOW CARDIOVASCULAR RISK <40 mg/dl - HIGH CARDIOVASCULAR RISKMansfield HospitalComment on above:Performed By: #### BMP #### [facility] [address] [place] [address] Dr. Grace La CALC NORMALSEE BELOWMansfield HospitalComment on above:Result Comment: <100 mg/dl OPTIMAL 100 - 129 mg/dl NEAR OR ABOVE OPTIMAL 130 - 159 mg/dl BORDERLINE HIGH 160 - 189 mg/dl HIGH >190 mg/dl VERY HIGH Performed By: #### BMP #### [facility] [address] [place] [address] Dr. Grace AbdulTriglyceride [Mass/Vol]104 mg/dLNormal<=150The [facility] Comment on above:Performed By: #### BMP #### [facility] [address] [place] [address] Dr. Grace StarksLDL CALC20.8 mg/dLNoMarymount HospitalComment on above: Performed By: #### BMP #### [facility] [address] [place] [address] Dr. Grace AbdulPROF 14(COMP METB)on 17-69-4393Pdpxkny [Mass/Vol]3.5 g/dLNormal 3.4-5.0The [facility] HospitalComment on above:Performed By: #### BMP #### [facility] [address] [place] [address] Dr. Grace AbdulAlbumin/Globulin [Mass ratio]1.0 {ratio}NormalThe [facility]y HospitalComment on above:Performed By: #### BMP #### [facility] [address] [address] [address] Grace CalderonP [Catalytic activity/Vol]55 U/CVexrlg99-501Gde [facility] HospitalComment on above:Performed By: #### BMP #### [facility] [address] [place] [address] Dr. Grace CalderonT [Catalytic activity/Vol]21 U/DKoakcb27-11Jxg [facility] HospitalComment on above:Performed By: #### BMP #### [facility] [address] [place] [address] Dr. Grace AbdulAnion gap [Moles/Vol]9.3 mmol/LNormalThe [facility]y HospitalComment on above:Performed By: #### BMP #### [facility] [address] [place] [address] Dr. Grace AbdulAST [Catalytic activity/Vol]21 U/GPhsudv58-00Omb [facility] HospitalComment on above:Performed By: #### BMP #### [facility] [address] [place] [address] Dr. Grace AbdulBilirubin [Mass/Vol]0.3 mg/dLNormal0.2-1.0[facility] Comment on above:Performed By: #### BMP #### [facility] [address] [place] [address] Dr. Grace AbdulCalcium [Mass/Vol]9.5 mg/dLNormal8.5-10.1[facility] Comment on above:Performed By: #### BMP #### [facility] [address] [place] [address] Dr. Grace AbdulChloride [Moles/Vol]102 mmol/JIzcgqy18-021Mlh [facility] Comment on above:Performed By: #### BMP #### [facility] [address] [address] [address] Grace AbdulCO2 [Moles/Vol]28.5 mmol/EVugdlv13.0-32.0[facility] Comment on above:Performed By: #### BMP #### [facility] [address] [place] [address] Dr. Grace AbdulCreatinine [Mass/Vol]1.04 mg/dLCritically high0.55-1.02The [facility] HospitalComment on above:Performed By: #### BMP #### [facility] [address] [place] [address] Dr. Edwards ChangEGFR-AF GABONESE>60Normal>=60The [facility] HospitalComment on above:Performed By: #### BMP #### [facility] [address] [place] [address] Dr. Grace RichardGFR-NON AF LWTLTMYM04 mL/min/1.17e3Mnpqzpfggw low>=60The [facility] HospitalComment on above:Performed By: #### BMP #### [facility] [address] [place] [address] Dr. Grace AbdulGlobulin (S) [Mass/Vol]3.5 g/dLNormalThe [facility] HospitalComment on above:Performed By: #### BMP #### [facility] [address] [place] [address] Dr. Grace AbdulGlucose [Mass/Vol]102 mg/zXUfbqjb59-941TznMary [facility] Comment on above:Performed By: #### BMP #### [facility] [address] [place] [address] Dr. Grace AbdulPotassium [Moles/Vol]3.8 mmol/LNormal3.5-5.1[facility] Comment on above:Performed By: #### BMP #### [facility] [address] [place] [address] Dr. Grace AbdulProtein [Mass/Vol]7.0 g/dLNormal6.4-8.2The [facility] Comment on above:Performed By: #### BMP #### [facility] [address] [place] [address] Dr. Grace AbdulSodium [Moles/Vol]136 mmol/JIwvlxi779-556Azm [facility] Comment on above:Performed By: #### BMP #### [facility] [address] [address] [address] Grace AbdulUrea nitrogen [Mass/Vol]20.0 mg/dLCritically high7.0-18.0The [facility] HospitalComment on above:Performed By: #### BMP #### [facility] [address] [address] [address] Grace AbdulUrea nitrogen/Creatinine [Mass ratio]19.2 mg/mgNoMarymount HospitalComment on above:Performed By: #### BMP #### [facility] [address] [place] [address] Dr. Grace AbdulTSHoelida 10-96-8179CDJ8.247 uIU/mLCritically low0.358-3.740The [facility] HospitalComment on above:Performed By: #### BMP #### [facility] [address] [place] [address] Dr. Grace AbdulVITAMIN B12on 98-60-2024Fkxlkhfyu (Vitamin B12) [Mass/Vol]762.0 pg/aQUvydpg050.0-986.0The [facility] HospitalComment on above:Performed By: #### IRON, VITAD, VITB12 ####[facility] [address]tfputiwio[address] [place], [place] [address]Dr. Grace AbdulVITAMIN D 25 OHon 13-20-6069SXS D 25-OH 54.9 ng/mLNormalThe [facility]y HospitalComment on above:Performed By: #### IRON, VITAD, VITB12 ####[facility] [address] [address]Dr. Grace AbdulVIT D RANGESSEE BELOWMansfield HospitalComment on above:Result Comment: <20 ng/mL Vit D deficient 20 - <30 ng/mL Vit D insufficient 30 - 100 ng/mL Vit D sufficient >100 ng/mL Potential Toxicity Performed By: #### IRON, VITAD, VITB12 ####[facility] [address] [address]DrLisette Bocanegra MAMM SCREEN 3D CLEMENCIA CADon 89-71-3096TR MAMM SCREEN 3D CLEMENCIA CADPatient: ALEXA DELGADO Exam Date: 11/25/2021 : 1940 Gender:F Ordering : DR GALINA PALMER . Admission #: [id number] Family : DR ARMANDO THAYER Order #: [id number] CLICK HERE TO VIEW EXAM RADIOLOGY REPORT [...] Treatments None Family Cancers None LOCATION: [facility] BREAST COMPOSITION: Scattered areas fibroglandular density. [...] LUMP SHOULD BE BIOPSIED. Dictated by: Hermes Suarez MD on 11/25/2021 at 14:12 Approved by: Hermes Suarez MD on 11/25/2021 at 14:14[facility] CULTURE URINEon 04-78-6923NDLRVDD URINECulture Observations: LIGHT GROWTH OF MIXED GENITAL ALANIS. NO POTENTIAL PATHOGENS SEEN.NormalThe [facility]y HospitalComment on above:Performed By: #### URCX ####[facility] [address] [address]Dr. Grace Crow PANEL (PCR) on 85-43-0375Oprqhcjmqu F 40/41Not detectedNormalNOT DETECTEDMary Rutan HospitalComment on above:Performed By: #### CBC #### [facility] [address] [address] [address] Grace AbdulAstrovirusNot detectedNormalNOT DETECTEDThe [facility] Comment on above:Performed By: #### CBC #### [facility] [address] [address] [address] Grace Meza. Diff toxin A/BNot detectedNormalNOT DETECTEDThe [facility] HospitalComment on above:Performed By: #### CBC #### [facility] [address] [address] [address] Grace BarnespylobacterNot detectedNormalNOT DETECTEDThe [facility] Comment on above:Performed By: #### CBC #### [facility] [address] [address] [address] Grace AbdulCryptosporidiumNot detectedNormalNOT DETECTEDThe [facility] HospitalComment on above:Performed By: #### CBC #### [facility] [address] [address] [address] Grace Whitney. CayetanensisNot detectedNormalNOT DETECTEDThe [facility] HospitalComment on above:Performed By: #### CBC #### [facility] [address] [address] [address] Grace Lizarraga Coli H074Nsl ApplicableNormalNot ApplicableThe [facility] HospitalComhawthorn center on above:Performed By: #### CBC #### [facility] [address] [address] [address] Grace Lizarraga histolyticaNot detectedNormalNOT DETECTEDThe [facility] Comment on above:Performed By: #### CBC #### [facility] [address] [address] [address] Grace RichardAECNot detectedNormalNOT DETECTEDThe [facility] HospitalComment on above:Performed By: #### CBC #### [facility] [address] [address] [address] Grace RichardIECNot detectedNormalNOT DETECTEDThe [facility] HospitalComhawthorn center on above:Performed By: #### CBC #### [facility] [address] [address] [address] Grace RichardPECNot detectedNormalNOT DETECTEDThe [facility] HospitalComment on above:Performed By: #### CBC #### [facility] [address] [address] [address] Grace Groves detectedNormalNOT DETECTEDMary Rutan HospitalComment on above:Performed By: #### CBC #### [facility] [address] [address] [address] Grace Huang LambliaNomerritt detectedNormalNOT DETECTEDMary [facility] Hospital Comment on above:Performed By: #### CBC #### [facility] [address] [address] [address] Grace Reid CONTROLSTriHealth Bethesda North HospitalComment on above:Performed By: #### CBC #### [facility] [address] [address] [address] Grace DIETRICH HEADERGI [facility] Comment on above:Performed By: #### CBC #### [facility] [address] [address] [address] Grace Tena ECOLIGI PANEL DIARRHEAGENIC E.COLI / SHIGELLAMansfield HospitalComment on above:Performed By: #### CBC #### [facility] [address] [address] [address] Grace Tena INFOSEPremier Health Atrium Medical CenterComhawthorn center on above: Result Comment: EAEC- Enteroaggregative E. Coli EPEC- Enteropathogenic E. Coli ETEC- Enterotoxigenic E. Coli lt/st STEC- Shigella-like toxin-producing E. Coli stx1/stx2 EIEC- Shigella/Enteroinvasive E. ColiPerformed By: #### CBC #### [facility] [address] [address] [address] Grace Tena PARASITESGI PANEL [facility] Comment on above:Performed By: #### CBC #### [facility] [address] [address] [address] Grace Tena VIRUSGI PANEL [facility] HospitalComment [facility]:Performed By: #### CBC #### [facility] [address] [address] [address] Grace Pinarovirus GI/GIINot detectedNormalNOT DETECTEDThe [facility] HospitalComment on above:Performed By: #### CBC #### [facility] [address] [address] [address] Grace Amin. ShigelloidesNot detectedNormalNOT DETECTEDThe [facility] HospitalComment on above:Performed By: #### CBC #### [facility] [address] [address] [address] Grace AbdulRotavirus ANot detectedNormalNOT DETECTEDThe [facility] Comment on above:Performed By: #### CBC #### [facility] [address] [address] [address] Grace AbdulSalmonellaNot detectedNormalNOT DETECTEDThe [facility] Comment on above:Performed By: #### CBC #### [facility] [address] [address] [address] Grace AbdulSapovirusNot detectedNormalNOT DETECTEDThe [facility] Comment on above:Performed By: #### CBC #### [facility] [address] [address] [address] Grace AbdulSTECNot detectedNormalNOT DETECTEDThe [facility] HospitalComhawthorn center on above:Performed By: #### CBC #### [facility] [address] [address] [address] Grace BenzbrioNot detectedNormalNOT DETECTEDThe [facility] HospitalComment on above:Performed By: #### CBC #### [facility] [address] [address] [address] Grace Rappio CholeraNot detectedNormalNOT DETECTEDMary [facility] Comment on above:Performed By: #### CBC #### [facility] [address] [address] [address] Grace Montoya. EnterocoliticaNot detectedNormalNOT DETECTEDThe [facility] HospitalComment on above:Performed By: #### CBC #### [facility] [address] [address] [address] Grace Cespedes RANDOM W/MICROSCOPICon 41-79-2871WUEIUZZRVSCJ SEENNormalNONE SEENMary Rutan HospitalComment on above:Performed By: #### UAMIC ####[facility] [address]wb[address] [place], [place] [address]Dr. Grace Abdul Bilirubin Ql (U)NegativeNormalNEGATIVEMary Rutan HospitalComment on above: Performed By: #### UAMIC ####[facility] [address]cshtzzvht[address] [place], [place] [address]Dr. Grace ChangCASTNONE SEENNormalNONE SEENMary Rutan HospitalComment on above:Performed By: #### UAMIC ####[facility] [address]selkzqefw[address] [place], [place] [address]Dr. Grace AbdulClarity (U) CLEARNormalCLEARMary Rutan HospitalComment on above:Performed By: #### UAMIC ####[facility] [address]kmgievy[address] [place], [place] [address]Dr. Grace AbdulColor (U)LT. YELLOWNormalYELLOWMary Rutan HospitalComment on above: Performed By: #### UAMIC ####[facility] Ichvxapwpw[address] [place], [place] [address]Dr. Grace AbdulCrystals LM Nom (Urine sed)NONE SEEN NormalNONE SEENMary Rutan HospitalComhawthorn center on above:Performed By: #### UAMIC ####[facility] Advrtbmpcn[address] [place], [place] [address]Dr. Grace ChangEpithelial cells LM Ql (Urine sed)FEWAbnormalNONE SEEN /RAREThe [facility] HospitalComment on above:Performed By: #### UAMIC ####[facility] [address]qmeyvyhj[address] [place], [place] [address]Dr. Grace AbdulGlucose Ql (U)NegativeNormalNEGATIVEMary Rutan HospitalComment on above:Performed By: #### UAMIC ####[facility] [address]xpbxrnkb[address] [place], [place] [address]Dr. Grace AbdulHemoglobin Ql (U)TRACE-INTACTAbnormalNEGATIVEMary Rutan HospitalComment on above:Performed By: #### UAMIC ####[facility] [address] [address]Dr. Yilan ChangKetones Ql (U) NegativeNormalNEGATIVEThe [facility] HospitalComment on above:Performed By: #### UAMIC ####[facility] Kasqkedwhg[address] [place], [place] [address]Dr. Yilan ChangLEUKOCYTESNegativeNormalNEGATIVEThe [facility] HospitalComment on above:Performed By: #### UAMIC ####[facility] [address]wnsb[address] [place], [place] [address]Dr. Yilan ChangMUCOUSNONE SEENNormalNONE SEENThe [facility] HospitalComment on above:Performed By: #### UAMIC ####[facility] Wyfkhbqupd[address] [place], [place] [address]Dr. Yilan ChangNitrite Ql (U)NegativeNormalNEGATIVEThe [facility] HospitalComment on above:Performed By: #### UAMIC ####[facility] [address]pyvw[address]nvk[address] [place], [place] [address]Dr. Yilan ChangpH (U)7.5 [pH]Normal5-9The [facility] HospitalComment on above:Performed By: #### UAMIC ####[facility] Yzdhvxtaux[address] [place], [place] [address]Dr. Yilan ElwlsDQT7-0Wkqdjr4-9Wfm [facility] Comment on above:Performed By: #### UAMIC ####[facility] Wafiaeuxcg[address] [place], [place] [address]Dr. Yilan ChangSPEC GRAVITY1.010Normal 1.005-<=1.025The [facility] HospitalComment on above:Performed By: #### UAMIC ####[facility] Udcstcaevr[address] [place], [place] [address]Dr. Yilan ChangUA PROTEINNegativeNormalNEGATIVE/ TRACEThe [facility] HospitalComment on above:Performed By: #### UAMIC ####[facility] Smiowkxknt[address] [place], [place] [address]Dr. Yilan ChangUrobilinogen Qn (U)0.2 {Ashley'U}/dL Normal0.2 - 1.0The [facility] HospitalComment on above:Performed By: #### UAMIC ####[facility] [address] [place] [address]Dr. Grace AbdulWBCNONE SEENNormalNONE SEENThe [facility] HospitalComment on above: Performed By: #### UAMIC ####[facility] [address] [place] [address]Dr. Grace MoranC AUTO DIFFon 65-05-2674RPZJ #0.0 103/ulNormal0.0-0.1The [facility] HospitalComment on above:Performed By: #### CBC #### [facility] [address] [place] [address] Dr. Grace AbdulBasophils/100 WBC (Bld)0.4 %Normal0.2-2.0[facility] Comment on above:Performed By: #### CBC #### [facility] [address] [address] [address] Grace Blunt #0.1 103/ulNormal0.0-0.7The [facility] HospitalComment on above: Performed By: #### CBC #### [facility] [address] [place] [address] Dr. Grace Richardosinophils/100 WBC (Bld)1.5 %Normal0.9-7.0[facility] Comment on above:Performed By: #### CBC #### [facility] [address] [address] [address] Grace Richardrythrocyte distribution width (RBC) [Ratio]13.2 %Kyzleo50.0-15.0 The [facility] HospitalComment on above:Performed By: #### CBC #### [facility] [address] [place] [address] Dr. Grace AbdulHematocrit (Bld) [Volume fraction]31.9 %Critically low36.0-48.0 The [facility] HospitalComment on above:Performed By: #### CBC #### [facility] [address] [address] [address] Grace AbdulHemoglobin (Bld) [Mass/Vol]10.5 g/dLCritically low12.0-16.0The [facility] HospitalComment on above:Performed By: #### CBC #### [facility] [address] [place] [address] Dr. Grace Son #0.01 10e3/ulNormal0.00-0.03The [facility] HospitalComment on above:Performed By: #### CBC #### [facility] [address] [place] [address] Dr. Grace Son %0.2 %Normal0.0-0.5The [facility] HospitalComment on above: Performed By: #### CBC #### [facility] [address] [place] [address] Dr. Grace Hamilton #0.7 103/ulCritically low1.2-3.8[facility] Comment on above:Performed By: #### CBC #### [facility] [address] [place] [address] Dr. Grace Willishocytes/100 WBC (Bld)14.8 %Critically low20.5-60.0The [facility] HospitalComment on above:Performed By: #### CBC #### [facility] [address] [place] [address] Dr. Grace FloresUAL DIFF REQNONormalThe [facility]y HospitalComment on above: Performed By: #### CBC #### [facility] [address] [place] [address] Dr. Grace Perdomo (RBC) [Entitic mass]31.4 lsXajoyi22.7-34.0The [facility] HospitalComment on above:Performed By: #### CBC #### [facility] [address] [place] [address] Dr. Grace Perdomo (RBC) [Mass/Vol]32.9 g/hBBtpssr16.9-35.2The [facility] HospitalComment on above:Performed By: #### CBC #### [facility] [address] [address] [address] Grace PerdomoV (RBC) [Entitic vol]95.5 rFOqowgx91.0-99.0The [facility] on above:Performed By: #### CBC #### [facility] [address] [place] [address] Dr. Grace Barrios #0.6 103/ulNormal0.3-0.8The [facility] HospitalComment on above:Performed By: #### CBC #### [facility] [address] [place] [address] Dr. Grace Riderocytes/100 WBC (Bld)13.4 %Critically high1.7-12.0The [facility] on above:Performed By: #### CBC #### [facility] [address] [place] [address] Dr. Grace Brar #3.3 103/ulNormal1.4-6.5The [facility] on above:Performed By: #### CBC #### [facility] [address] [place] [address] Dr. Grace Solitarioutrophils/100 WBC (Bld)69.7 %Ygyqag43.0-75.0The [facility] on above:Performed By: #### CBC #### [facility] [address] [place] [address] Dr. Grace Stokeslet mean volume (Bld) [Entitic vol]9.1 fLCritically low 9.5-13.5The [facility] on above:Performed By: #### CBC #### [facility] [address] [place] [address] Dr. Grace AbdulPLT335 103/olFaqrvl821-726Awq [facility] on above: Performed By: #### CBC #### [facility] [address] [place] [address] Dr. Grace AbdulRBC3.34 106/ulCritically low4.20-5.40The [facility] on above:Performed By: #### CBC #### [facility] [address] [address] [address] Grace AbdulWBC4.8 103/ulNormal4.0-11.0The [facility] HospitalComment on above: Performed By: #### CBC #### [facility] [address] [address] [address] Grace Michelle THYROXINE INDEX T7on 96-52-9440JKB1.15Critically low 1.30-4.50The [facility] HospitalComment on above:Performed By: #### T7, CMP, TSH ####[facility] [address] [id number]. Grace AbdulT3U31.0 %Gbexok53.0-39.0The [facility] HospitalComment on above: Performed By: #### T7, CMP, TSH ####[facility] [address] [place], [place]Dr. Grace AbdulT4 [Mass/Vol]3.70 ug/dLCritically low 4.80-13.90The [facility] HospitalComment on above:Performed By: #### T7, CMP, TSH ####[facility] [address] [id number]. Grace AbdulIRONon 25-81-9367Rtaj [Mass/Vol]52.0 ug/aKLtdyax47.0-170.0The [facility] HospitalComment on above:Performed By: #### CVDTBH #### [facility] [address] [address] [address] Grace Reno 14(COMP METB)on 34-31-4863Jtrsdtk [Mass/Vol]3.5 g/dLNormal 3.4-5.0The [facility] HospitalComment on above:Performed By: #### T7, CMP, TSH ####[facility] [address] [id number]. Grace AbdulAlbumin/Globulin [Mass ratio]1.1 {ratio}NormalThe [facility] Comment on above:Performed By: #### T7, CMP, TSH ####[facility] Pjschdqgtd0768 [place], [place]Dr. Yilan ChangALP [Catalytic activity/Vol]69 U/CNyvvay70-931Qms [facility] HospitalComment on above:Performed By: #### T7, CMP, TSH ####[facility] Eesknecipm[address] [place], [place]Dr. Yilan ChangALT [Catalytic activity/Vol]51 U/LNormal 14-59The [facility] HospitalComment on above:Performed By: #### T7, CMP, TSH ####[facility] Mbkmtwskjk3161 [place], [place]Dr. Yilan ChangAnion gap [Moles/Vol]11.5 mmol/LNormalThe [facility] HospitalComment on above:Performed By: #### T7, CMP, TSH ####[facility] Wkvcydplre8591 [place], [place]Dr. Yilan ChangAST [Catalytic activity/Vol]24 U/L Asujdd07-45Xio [facility] HospitalComment on above:Performed By: #### T7, CMP, TSH ####[facility] Risxkqehrt9[address] [place], [place]Dr. Yilan ChangBilirubin [Mass/Vol]0.2 mg/dLNormal0.2-1.0The [facility] Comment on above:Performed By: #### T7, CMP, TSH ####[facility] [address] [place], [place] [address]Dr. Yilan ChangCalcium [Mass/Vol]9.3 mg/dLNormal8.5-10.1The [facility] on above:Performed By: #### T7, CMP, TSH ####[facility] [address] [place], [place] [address]Dr. Yilan ChangChloride [Moles/Vol]98 mmol/LNormal 98-107The [facility] HospitalComment on above:Performed By: #### T7, CMP, TSH ####[facility] [address] [place], [place] [address]Dr. Yilan ChangCO2 [Moles/Vol]28.7 mmol/UOyhmef77.0-32.0The [facility] HospitalComment on above:Performed By: #### T7, CMP, TSH ####[facility] [address] [id number]. Yilan ChangCreatinine [Mass/Vol]1.11 mg/dLCritically high0.55-1.02The [facility] HospitalComment on above:Performed By: #### T7, CMP, TSH ####[facility] [address] [address]Dr. Yilan ChangEGFR-AF JLSQTSGW31 mL/min/1.73m2 Critically low>=60The [facility] HospitalComment on above:Performed By: #### T7, CMP, TSH ####[facility] Pnvxqyjmtt5259 [place], [place] [address]Mq. Yilan ChangEGFR-NON AF JUGKWIVN54 mL/min/1.45b4Pluafkljqt low>=60The [facility] HospitalComment on above:Performed By: #### T7, CMP, TSH ####[facility] [address] [place], [place] [address]Dr. Yilan Abdul Globulin (S) [Mass/Vol]3.3 g/dLNormalThe [facility]y HospitalComment on above: Performed By: #### T7, CMP, TSH ####[facility] Qadxagdzkv1168 [place], [place]Dr. Yilan ChangGlucose [Mass/Vol]88 mg/yUDbowyo11-903 The [facility] HospitalComment on above:Performed By: #### T7, CMP, TSH ####[facility] Rmreqcctpq8080 [place], [place]Dr. Yilan ChangPotassium [Moles/Vol]4.2 mmol/LNormal3.5-5.1The [facility] Comment on above:Performed By: #### T7, CMP, TSH ####[facility] [address] [address]Dr. Yilan ChangProtein [Mass/Vol]6.8 g/dLNormal6.4-8.2The [facility] HospitalComment on above:Performed By: #### T7, CMP, TSH ####[facility] Jkacsnhtzx8496 [place], [place]Dr. Yilan ChangSodium [Moles/Vol]134 mmol/LCritically wif826-103Con [facility] HospitalComment on above:Performed By: #### T7, CMP, TSH ####[facility] [address] [id number]. Yilan ChangUrea nitrogen [Mass/Vol]33.0 mg/dLCritically high7.0-18.0The [facility] HospitalComment on above:Performed By: #### T7, CMP, TSH ####[facility] [address] [address]Dr. Yilan ChangUrea nitrogen/Creatinine [Mass ratio]29.7 mg/mgNormalThe [facility] HospitalComment on above:Performed By: #### T7, CMP, TSH ####[facility] [address] [id number]. Grace AbdulTSHon 91-78-0250GZI9.469 uIU/mL Normal0.358-3.740The [facility] HospitalComment on above:Performed By: #### T7, CMP, TSH ####[facility] [address] [address]Dr. Grace MoranC AUTO DIFFon 13-25-0750TEZZ #0.0 103/ulNormal0.0-0.1The [facility] HospitalComment on above:Performed By: #### CVDTBH #### [facility] [address] [address] [address] Grace AbdulBasophils/100 WBC (Bld)0.2 %Normal0.2-2.0The [facility] Comment on above:Performed By: #### CVDTBH #### [facility] [address] [address] [address] Grace Blunt #0.1 103/ulNormal0.0-0.7The [facility] HospitalComment on above: Performed By: #### CVDTBH #### [facility] [address] [place] [address] Dr. Grace Richardosinophils/100 WBC (Bld)0.9 %Normal0.9-7.0[facility] Comment on above:Performed By: #### CVDTBH #### [facility] [address] [place] [address] Dr. Grace Richardrythrocyte distribution width (RBC) [Ratio]12.8 %Cyqrnk06.0-15.0 [facility] HospitalComment on above:Performed By: #### CVDTBH #### [facility] [address] [place] [address] Dr. Grace AbdulHematocrit (Bld) [Volume fraction]35.2 %Critically low36.0-48.0 [facility] HospitalComment on above:Performed By: #### CVDTBH #### [facility] [address] [place] [address] Dr. Grace AbdulHemoglobin (Bld) [Mass/Vol]12.1 g/xHWjkxel06.0-16.0[facility] HospitalComment on above:Performed By: #### CVDTBH #### [facility] [address] [place] [address] Dr. Grace Son #0.05 10e3/ulCritically high0.00-0.03[facility] Comment on above:Performed By: #### CVDTBH #### [facility] [address] [place] [address] Dr. Grace Son %0.6 %Critically high0.0-0.5ThFirelands Regional Medical Center South CampusComment on above:Performed By: #### CVDTBH #### [facility] [address] [place] [address] Dr. Grace Hamilton #0.6 103/ulCritically low1.2-3.8The [facility] Comment on above:Performed By: #### CVDTBH #### [facility] [address] [place] [address] Dr. Grace Hillmphocytes/100 WBC (Bld)7.4 %Critically low20.5-60.0The [facility] HospitalComment on above:Performed By: #### CVDTBH #### [facility] [address] [place] [address] Dr. Grace Gee DIFF REQNONormalThe [facility]y HospitalComment on above: Performed By: #### CVDTBH #### [facility] [address] [place] [address] Dr. Grace Perdomo (RBC) [Entitic mass]31.5 niYezeng61.7-34.0The [facility] HospitalComment on above:Performed By: #### CVDTBH #### [facility] [address] [place] [address] Dr. Grace Perdomo (RBC) [Mass/Vol]34.4 g/kTIvwgbq22.9-35.2The [facility] HospitalComment on above:Performed By: #### CVDTBH #### [facility] [address] [place] [address] Dr. Grace Serrano (RBC) [Entitic vol]91.7 uFFxdbct67.0-99.0The [facility] HospitalComment on above:Performed By: #### CVDTBH #### [facility] [address] [place] [address] Dr. Grace Barrios #1.0 103/ulCritically high0.3-0.8The [facility] Comment on above:Performed By: #### CVDTBH #### [facility] [address] [place] [address] Dr. Grace Riderocytes/100 WBC (Bld)12.1 %Critically high1.7-12.0The [facility] HospitalComment on above:Performed By: #### CVDTBH #### [facility] [address] [place] [address] Dr. Grace Brar #6.3 103/ulNormal1.4-6.5The [facility] HospitalComment on above:Performed By: #### CVDTBH #### [facility] [address] [place] [address] Dr. Grace AbdulNeutrophils/100 WBC (Bld)78.8 %Critically high43.0-75.0The [facility] HospitalComment on above:Performed By: #### CVDTBH #### [facility] [address] [place] [address] Dr. Grace AbdulPlatelet mean volume (Bld) [Entitic vol]9.1 fLCritically low 9.5-13.5The [facility] HospitalComment on above:Performed By: #### CVDTBH #### [facility] [address] [place] [address] Dr. Grace AbdulPLT281 103/zmGwwokq157-721Qsm [facility] HospitalComment on above: Performed By: #### CVDTBH #### [facility] [address] [place] [address] Dr. Grace AbdulRBC3.84 106/ulCritically low4.20-5.40The [facility] HospitalComment on above:Performed By: #### CVDTBH #### [facility] [address] [place] [address] Dr. Grace AbdulWBC8.0 103/ulNormal4.0-11.0The [facility] HospitalComment on above: Performed By: #### CVDTBH #### [facility] [address] [place] [address] Dr. Grace AbdulMAGNESIUMon 34-44-2805Gfdnytlkb [Mass/Vol]1.9 mg/dLNormal1.8-2.4 The [facility] HospitalComment on above:Performed By: #### CVDTBH #### [facility] [address] [place] [address] Dr. Grace AbdulPROF CHEM 8 (BAS METB)on 01-07-2896Ictmd gap [Moles/Vol]13.9 mmol/LNormalThe [facility] HospitalComment on above:Performed By: #### CVDTBH #### [facility] [address] [place] [address] Dr. Grace AbdulCalcium [Mass/Vol]8.7 mg/dLNormal8.5-10.1[facility] Comment on above:Performed By: #### CVDTBH #### [facility] [address] [place] [address] Dr. Grace AbdulChloride [Moles/Vol]101 mmol/CRzdtjf95-578Vjd [facility] Comment on above:Performed By: #### CVDTBH #### [facility] [address] [place] [address] Dr. Grace AbdulCO2 [Moles/Vol]24.3 mmol/VDwfsxz19.0-32.0The [facility] Comment on above:Performed By: #### CVDTBH #### [facility] [address] [place] [address] Dr. Grace AbdulCreatinine [Mass/Vol]0.89 mg/dLNormal0.55-1.02The [facility] HospitalComment on above:Performed By: #### CVDTBH #### [facility] [address] [place] [address] Dr. Grace RichardGFR-AF GABONESE>60Normal>=60The [facility] HospitalComment on above:Performed By: #### CVDTBH #### [facility] [address] [place] [address] Dr. Grace RichardGFR-NON AF GABONESE>60Normal>=60The [facility] HospitalComment on above:Performed By: #### CVDTBH #### [facility] [address] [place] [address] Dr. Grace AbdulGlucose [Mass/Vol]97 mg/eTMotaae73-185Hth [facility] Comment on above:Performed By: #### CVDTBH #### [facility] [address] [place] [address] Dr. Grace AbdulPotassium [Moles/Vol]3.2 mmol/LCritically low3.5-5.1The [facility] HospitalComment on above:Performed By: #### CVDTBH #### [facility] [address] [place] [address] Dr. Grace Kaurum [Moles/Vol]136 mmol/IRllqwq307-999Fcr [facility] Comment on above:Performed By: #### CVDTBH #### [facility] [address] [place] [address] Dr. Grace Bernal nitrogen [Mass/Vol]14.0 mg/dLNormal7.0-18.0The [facility] HospitalComment on above:Performed By: #### CVDTBH #### [facility] [address] [place] [address] Dr. Grace Bernal nitrogen/Creatinine [Mass ratio]15.7 mg/mgNormalThe [facility] HospitalComment on above:Performed By: #### CVDTBH #### [facility] [address] [place] [address] Dr. Grace Casey AUTO DIFFon 78-69-3814UKZT #0.0 103/ulNormal0.0-0.1The [facility] HospitalComment on above:Performed By: #### BMP #### [facility] [address] [place] [address] Dr. Grace AbdulBasophils/100 WBC (Bld)0.2 %Normal0.2-2.0[facility] Comment on above:Performed By: #### BMP #### [facility] [address] [place] [address] Dr. Grace Blunt #0.0 103/ulNormal0.0-0.7The [facility] HospitalComment on above: Performed By: #### BMP #### [facility] [address] [place] [address] Dr. Grace Richardosinophils/100 WBC (Bld)0.5 %Critically low0.9-7.0The [facility] HospitalComment on above:Performed By: #### BMP #### [facility] [address] [place] [address] Dr. Grace Richardrythrocyte distribution width (RBC) [Ratio]12.4 %Moxziy72.0-15.0 The [facility] HospitalComment on above:Performed By: #### BMP #### [facility] [address] [place] [address] Dr. Grace AbdulHematocrit (Bld) [Volume fraction]33.6 %Critically low36.0-48.0 The [facility] HospitalComment on above:Performed By: #### BMP #### [facility] [address] [place] [address] Dr. Grace AbdulHemoglobin (Bld) [Mass/Vol]11.8 g/dLCritically low12.0-16.0The [facility] HospitalComment on above:Performed By: #### BMP #### [facility] [address] [place] [address] Dr. Grace AbdulIG #0.04 10e3/ulCritically high0.00-0.03The [facility] Comment on above:Performed By: #### BMP #### [facility] [address] [place] [address] Dr. Grace AbdulIG %0.7 %Critically high0.0-0.5The [facility] HospitalComment on above:Performed By: #### BMP #### [facility] [address] [place] [address] Dr. Grace Hamilton #0.7 103/ulCritically low1.2-3.8The [facility] Comment on above:Performed By: #### BMP #### [facility] [address] [place] [address] Dr. Grace Hillmphocytes/100 WBC (Bld)11.1 %Critically low20.5-60.0The [facility] HospitalComment on above:Performed By: #### BMP #### [facility] [address] [place] [address] Dr. Grace AbdulMANUAL DIFF REQNONormalThe [facility] HospitalComment on above: Performed By: #### BMP #### [facility] [address] [place] [address] Dr. Grace Joy (RBC) [Entitic mass]31.5 jnPblrbx00.7-34.0The [facility] HospitalComment on above:Performed By: #### BMP #### [facility] [address] [address] [address] Grace PerdomoHC (RBC) [Mass/Vol]35.1 g/nUTiampo18.9-35.2The [facility] HospitalComment on above:Performed By: #### BMP #### [facility] [address] [address] [address] Grace PerdomoV (RBC) [Entitic vol]89.6 mHUkvzdk61.0-99.0The [facility]Comment on above:Performed By: #### BMP #### [facility] [address] [address] [address] Grace Barrios #0.9 103/ulCritically high0.3-0.8The [facility] Comment on above:Performed By: #### BMP #### [facility] [address] [address] [address] Grace Riderocytes/100 WBC (Bld)14.0 %Critically high1.7-12.0The [facility] HospitalComment on above:Performed By: #### BMP #### [facility] [address] [address] [address] Grace Brar #4.5 103/ulNormal1.4-6.5The [facility] HospitalComment on above:Performed By: #### BMP #### [facility] [address] [address] [address] Grace Solitarioutrophils/100 WBC (Bld)73.5 %Mqzlcb61.0-75.0The [facility]Comment on above:Performed By: #### BMP #### [facility] [address] [address] [address] Grace Stokeslet mean volume (Bld) [Entitic vol]9.3 fLCritically low 9.5-13.5The [facility] HospitalComment on above:Performed By: #### BMP #### [facility] [address] [address] [address] Grace AbdulPLT292 103/ljYvmenf997-828Oda [facility] HospitalComment on above: Performed By: #### BMP #### [facility] [address] [address] [address] Grace AbdulRBC3.75 106/ulCritically low4.20-5.40The [facility] HospitalComment on above:Performed By: #### BMP #### [facility] [address] [address] [address] Grace AbdulWBC6.1 103/ulNormal4.0-11.0The [facility] HospitalComment on above: Performed By: #### BMP #### [facility] [address] [place] [address] Dr. Grace AbdulCULTURE URINEon 04-76-0850GALIUBP URINECulture Observations: LIGHT GROWTH OF MIXED GENITAL ALANIS. NO POTENTIAL PATHOGENS SEEN.NormalMary Rutan HospitalComment on above:Performed By: #### URCX ####[facility] [address] [address]Dr. Grace RichardR URINE PROFILEon 69-99-5876Tyuysrkxj Ql (U)NegativeNormalNEGATIVEMary [facility] Hospital Comment on above:Performed By: #### CVDTBH #### [facility] [address] [place] [address] Dr. Grace Phelps (U)CLEARNormalCLEARThe [facility] HospitalComment on above: Performed By: #### CVDTBH #### [facility] [address] [place] [address] Dr. Grace Powell (U)LT. YELLOWNormalYELLOWThe [facility] HospitalComment on above:Performed By: #### CVDTBH #### [facility] [address] [place] [address] Dr. Grace Schmidt micrscopic examination will be performed if indicated. NormalMary Rutan HospitalComment on above:Performed By: #### CVDTBH #### [facility] [address] [place] [address] Dr. Grace Gilose Ql (U)NegativeNormalNEGATIVEMary Rut[facility] HospitalComment on above:Performed By: #### CVDTBH #### [facility] [address] [address] [address] Grace AbdulHemoglobin Ql (U)SMALLAbnormsdNEGWayne Hospital Comment on above:Performed By: #### CVDTBH #### [facility] [address] [address] [address] Grace AbdulKetones Ql (U)40 mg/dlAbnorutherford regional health systemNEGWayne Hospital Comment on above:Performed By: #### CVDTBH #### [facility] [address] [place] [address] Dr. Grace BabbOCYTESSMALLAbnormalNEGATIVEMary Rut[facility] HospitalComment on above:Performed By: #### CVDTBH #### [facility] [address] [place] [address] Dr. Grace AbdulNitrite Ql (U)NegativeNormalNEGATIVEMary [facility] HospitalComment on above:Performed By: #### CVDTBH #### [facility] [address] [place] [address] Dr. Grace AbdulpH (U)7.0 [pH]Normal5-9[facility] HospitalComment on above: Performed By: #### CVDTBH #### [facility] [address] [place] [address] Dr. Grace AbdulSPEC GRAVITY1.533Luleqt5.005-<=1.025The [facility] HospitalComment on above:Performed By: #### CVDTBH #### [facility] [address] [place] [address] Dr. Grace Cespedes PROTEINNegativeNormalNEGATIVE/ TRACEMary [facility] Comment on above:Performed By: #### CVDTBH #### [facility] [address] [place] [address] Dr. Grace Triplett MICRO INDINDICATEDNoalThFirelands Regional Medical Center South CampusComment on above: Performed By: #### CVDTBH #### [facility] [address] [place] [address] Dr. Grace AbdulUrobilinogen Qn (U)0.2 {Ashley'U}/dLNormal0.2 - 1.0The [facility] HospitalComment on above:Performed By: #### CVDTBH #### [facility] [address] [address] [address] Grace AbdulMAGNESIUMon 63-59-5820Usqlzknmt [Mass/Vol]1.8 mg/dLNormal1.8-2.4 The [facility] HospitalComment on above:Performed By: #### CVDTBH #### [facility] [address] [place] [address] Dr. Grace AbdulPROF CHEM 8 (BAS METB)on 39-99-5948Dftgs gap [Moles/Vol]12.7 mmol/LNormalThe [facility] HospitalComment on above:Performed By: #### BMP #### [facility] [address] [place] [address] Dr. rGace AbdulCalcium [Mass/Vol]8.3 mg/dLCritically low8.5-10.1The [facility] HospitalComment on above:Performed By: #### BMP #### [facility] [address] [place] [address] Dr. Grace AbdulCO2 [Moles/Vol]24.4 mmol/GUbyvlq36.0-32.0The [facility] Comment on above:Performed By: #### BMP #### [facility] [address] [place] [address] Dr. Grace AbdulCreatinine [Mass/Vol]1.16 mg/dLCritically high0.55-1.02The [facility] HospitalComment on above:Performed By: #### BMP #### [facility] [address] [place] [address] Dr. Grace RichardGFR-AF CMBGYWVQ90 mL/min/1.30q4Utigpazieh low>=60The [facility] HospitalComment on above:Performed By: #### BMP #### [facility] [address] [place] [address] Dr. Grace RichardGFR-NON AF KLHAPCMJ96 mL/min/1.49g1Qinvonevds low>=60The [facility] HospitalComment on above:Performed By: #### BMP #### [facility] [address] [address] [address] Grace AbdulGlucose [Mass/Vol]116 mg/dLCritically yihm68-400Smd [facility] HospitalComment on above:Performed By: #### BMP #### [facility] [address] [address] [address] Grace AbdulUrea nitrogen [Mass/Vol]20.0 mg/dLCritically high7.0-18.0The [facility] HospitalComment on above:Performed By: #### BMP #### [facility] [address] [address] [address] Grace Bernal nitrogen/Creatinine [Mass ratio]17.2 mg/mgNormalThe [facility] HospitalComment on above:Performed By: #### BMP #### [facility] [address] [address] [address] Grace Kauffmanon gap [Moles/Vol]10.0 mmol/LNormalMary [facility] Comment on above:Performed By: #### BMP #### [facility] [address] [address] [address] Grace AbdulCalcium [Mass/Vol]8.8 mg/dLNormal8.5-10.1The [facility] Comment on above:Performed By: #### BMP #### [facility] [address] [address] [address] Grace AbdulChloride [Moles/Vol]96 mmol/LCritically ycm53-490Pgl [facility] HospitalComment on above:Performed By: #### BMP #### [facility] [address] [address] [address] Grace AbdulCO2 [Moles/Vol]26.1 mmol/JFhrica28.0-32.0The [facility] Comment on above:Performed By: #### BMP #### [facility] [address] [address] [address] Grace AbdulCreatinine [Mass/Vol]1.11 mg/dLCritically high0.55-1.02The [facility] HospitalComment on above:Performed By: #### BMP #### [facility] [address] [address] [address] Grace RichardGFR-AF VIFXAQXQ67 mL/min/1.39f5Yameuzvcbj low>=60The [facility] HospitalComment on above:Performed By: #### BMP #### [facility] [address] [address] [address] Grace RichardGFR-NON AF OXAOWNUY19 mL/min/1.32e9Wcozyfsaow low>=60The [facility] HospitalComment on above:Performed By: #### BMP #### [facility] [address] [address] [address] Grace AbdulGlucose [Mass/Vol]94 mg/xRAjbzjd09-494Jny [facility] Comment on above:Performed By: #### BMP #### [facility] [address] [address] [address] Grace AbdulPotassium [Moles/Vol]3.1 mmol/LCritically low3.5-5.1The [facility] Hospitalment on above:Performed By: #### BMP #### [facility] [address] [address] [address] Grace AbdulPerformed By: #### CVDTBH #### [facility] [address] [address] [address] Grace AbdulSodium [Moles/Vol]129 mmol/LCritically uze381-506Wrd [facility] HospitalComment on above:Performed By: #### BMP #### [facility] [address] [address] [address] Grace AbdulUrea nitrogen [Mass/Vol]16.0 mg/dLNormal7.0-18.0The [facility] HospitalComment on above:Performed By: #### BMP #### [facility] [address] [address] [address] Grace Bernal nitrogen/Creatinine [Mass ratio]14.4 mg/mgNormalThe [facility] HospitalComment on above:Performed By: #### BMP #### [facility] [address] [address] [address] Grace Mosley gap [Moles/Vol]12.6 mmol/LNormalThe [facility] Comment on above:Performed By: #### CVDTBH #### [facility] [address] [place] [address] Dr. Grace AbdulCalcium [Mass/Vol]8.6 mg/dLNormal8.5-10.1The [facility] Comment on above:Performed By: #### CVDTBH #### [facility] [address] [place] [address] Dr. Grace AbdulChloride [Moles/Vol]95 mmol/LCritically dsh52-884Byn [facility] HospitalComment on above:Performed By: #### BMP #### [facility] [address] [place] [address] Dr. Grace AbdulPerformed By: #### CVDTBH #### [facility] [address] [place] [address] Dr. Grace AbdulCO2 [Moles/Vol]22.5 mmol/YVfwlwl40.0-32.0The [facility] Comment on above:Performed By: #### CVDTBH #### [facility] [address] [place] [address] Dr. Grace AbdulCreatinine [Mass/Vol]0.95 mg/dLNormal0.55-1.02The [facility] HospitalComment on above:Performed By: #### CVDTBH #### [facility] [address] [place] [address] Dr. Grace RichardGFR-AF GABONESE>60Normal>=60The [facility] HospitalComment on above:Performed By: #### CVDTBH #### [facility] [address] [place] [address] Dr. Grace RichardGFR-NON AF ALCNMYIO90 mL/min/1.26h5Dchdlxaczu low>=60The [facility] HospitalComment on above:Performed By: #### CVDTBH #### [facility] [address] [place] [address] Dr. Grace AbdulGlucose [Mass/Vol]92 mg/eARgiplh90-893Pvd [facility] Comment on above:Performed By: #### CVDTBH #### [facility] [address] [address] [address] Grace Kaurum [Moles/Vol]127 mmol/LCritically fcd023-703Fzw [facility] HospitalComment on above:Performed By: #### CVDTBH #### [facility] [address] [address] [address] Grace Bernal nitrogen [Mass/Vol]18.0 mg/dLNormal7.0-18.0The [facility] HospitalComment on above:Performed By: #### CVDTBH #### [facility] [address] [address] [address] Grace Bernal nitrogen/Creatinine [Mass ratio]18.9 mg/mgNoMarymount HospitalComment on above:Performed By: #### CVDTBH #### [facility] [address] [place] [address] Dr. Grace Marcos MICROSCOPIC ONLYon [id number]T SEEN The [facility] HospitalComment on above:Performed By: #### CVDTBH #### [facility] [address] [place] [address] Dr. Grace Bella identified Cx Nom (U)INDICATEDNoMarymount HospitalComment on above:Performed By: #### CVDTBH #### [facility] [address] [address] [address] Grace Alexandra SEENNormalNONE SEENMary Rutan HospitalComment on above:Performed By: #### CVDTBH #### [facility] [address] [address] [address] Grace Sood LM Nom (Urine sed)NONE SEENNormalNONE SEENMary Rut[facility] HospitalComhawthorn center on above:Performed By: #### CVDTBH #### [facility] [address] [place] [address] Dr. Edwards ChangEpithelial cells LM Ql (Urine sed)FEWAbnormalNONE SEEN /RAREThe [facility] HospitalComment on above:Performed By: #### CVDTBH #### [facility] [address] [place] [address] Dr. Grace SantosCOUSVIKKI SEENNormalNONE SEENThe [facility] HospitalComment on above:Performed By: #### CVDTBH #### [facility] [address] [place] [address] Dr. Grace AbdulFqujzHFO6-9Mvuyzwts0-0Hat [facility] HospitalComment on above:Performed By: #### CVDTBH #### [facility] [address] [place] [address] Dr. Grace AbdulWBC5-10AbnormalNONE SEENThe [facility] HospitalComment on above: Performed By: #### CVDTBH #### [facility] [address] [place] [address] Dr. Grace AbdulAMYLASEon 01-60-0183Aavierm [Catalytic activity/Vol]94 U/LNormal 25-115The [facility] HospitalComment on above:Performed By: #### CVDTBH #### [facility] [address] [place] [address] Dr. Grace Arndt [id number] peptide B (Bld) [Mass/Vol]357.0 pg/mL Normal<=1,800.0The [place] [facility] on above:Performed By: #### CVDTBH #### [facility] [address] [place] [address] Dr. Grace Oreilly JOVITA ADMITon [id number] [Catalytic activity/Vol]66 U/L Kwhapm63-459Zan [facility] HospitalComment on above:Performed By: #### CVDTBH #### [facility] [address] [place] [address] Dr. Grace Dawn.MB [Mass/Vol]2.19 ng/mLNormal<=3.60The [facility] on above:Performed By: #### CVDTBH #### [facility] [address] [place] [address] Dr. Grace DaoTROP9.5 pg/mLNormal4.0-51.3The [place] [facility] Hospitalment on above:Result Comment: CUT-OFF POINTS HAVE BEEN ESTABLISHED BASED ON THE FOURTH UNIVERSAL DEFINITIONS OF MYOCARDIAL INFARCTION. THE UPPER REFERENCE LIMIT (URL) OF TROPONIN, DEFINED THE 99TH PERCENTILE OF cTnI DISTRIBUTION IN A REFERENCE POPULATION, HAS BEEN CONFIRMED THE DECISION THRESHOLD FOR AR DIAGNOSIS.Performed By: #### CVDTBH #### [facility] [address] [place] [address] Dr. Grace Woods73 ng/mLNormal9-82The [facility] HospitalComment on above: Performed By: #### CVDTBH #### [facility] [address] [place] [address] Dr. Grace Casey AUTO DIFFon 56-29-2023HRCL #0.0 103/ulNormal0.0-0.1The [place] [facility] Hospitalment on above:Performed By: #### BMP #### [facility] [address] [place] [address] Dr. Grace AbdulBasophils/100 WBC (Bld)0.1 %Critically low0.2-2.0The [facility] HospitalComment on above:Performed By: #### BMP #### [facility] [address] [place] [address] Dr. Grace Blunt #0.0 103/ulNormal0.0-0.7The [facility]Comhaw[facility] on above: Performed By: #### BMP #### [facility] [address] [place] [address] Dr. Grace Richardosinophils/100 WBC (Bld)0.1 %Critically low0.9-7.0The [place] [facility] Hospitalment on above:Performed By: #### BMP #### [facility] [address] [place] [address] Dr. Grace Richardrythrocyte distribution width (RBC) [Ratio]11.9 %Bzfvlo01.0-15.0 The [place] [facility] Hospitalment on above:Performed By: #### BMP #### [facility] [address] [address] [address] Grace AbdulHematocrit (Bld) [Volume fraction]36.6 %Djcgtv40.0-48.0The [facility] HospitalComment on above:Performed By: #### BMP #### [facility] [address] [place] [address] Dr. Grace AbdulHemoglobin (Bld) [Mass/Vol]13.2 g/tEQeyqaw97.0-16.0The [facility] HospitalComment on above:Performed By: #### BMP #### [facility] [address] [place] [address] Dr. Grace AbdulIG #0.05 10e3/ulCritically high0.00-0.03The [facility] Comment on above:Performed By: #### BMP #### [facility] [address] [place] [address] Dr. Grace AbdulIG %0.7 %Critically high0.0-0.5The [facility] HospitalComment on above:Performed By: #### BMP #### [facility] [address] [address] [address] Grace Hamilton #0.7 103/ulCritically low1.2-3.8The [facility] Comment on above:Performed By: #### BMP #### [facility] [address] [place] [address] Dr. Grace Hillmphocytes/100 WBC (Bld)9.8 %Critically low20.5-60.0The [facility] HospitalComment on above:Performed By: #### BMP #### [facility] [address] [place] [address] Dr. Grace AbdulMANUAL DIFF REQNONormalThe [facility] HospitalComment on above: Performed By: #### BMP #### [facility] [address] [place] [address] Dr. Grace Joy (RBC) [Entitic mass]31.5 tvVjeprt17.7-34.0The [facility] HospitalComment on above:Performed By: #### BMP #### [facility] [address] [address] [address] Grace PerdomoHC (RBC) [Mass/Vol]36.1 g/dLCritically high29.9-35.2The [facility] HospitalComment on above:Performed By: #### BMP #### [facility] [address] [place] [address] Dr. Grace PerdomoV (RBC) [Entitic vol]87.4 jCKwoxdu09.0-99.0The [facility] HospitalComment on above:Performed By: #### BMP #### [facility] [address] [place] [address] Dr. Grace Barrios #0.9 103/ulCritically high0.3-0.8The [facility] Comment on above:Performed By: #### BMP #### [facility] [address] [place] [address] Dr. Grace Riderocytes/100 WBC (Bld)12.4 %Critically high1.7-12.0The [facility] HospitalComment on above:Performed By: #### BMP #### [facility] [address] [place] [address] Dr. Grace Brar #5.8 103/ulNormal1.4-6.5The [facility] HospitalComment on above:Performed By: #### BMP #### [facility] [address] [place] [address] Dr. Grace Solitarioutrophils/100 WBC (Bld)76.9 %Critically high43.0-75.0The [facility] HospitalComment on above:Performed By: #### BMP #### [facility] [address] [place] [address] Dr. Grace Stokeslet mean volume (Bld) [Entitic vol]9.0 fLCritically low 9.5-13.5The [facility] HospitalComment on above:Performed By: #### BMP #### [facility] [address] [place] [address] Dr. Grace AbdulPLT361 103/ulRdjktc509-280Tia [facility] HospitalComment on above: Performed By: #### BMP #### [facility] [address] [place] [address] Dr. Grace AbdulRBC4.19 106/ulCritically low4.20-5.40The [facility] HospitalComment on above:Performed By: #### BMP #### [facility] [address] [place] [address] Dr. Grace AbdulWBC7.6 103/ulNormal4.0-11.0The [facility] HospitalComment on above: Performed By: #### BMP #### [facility] [address] [place] [address] Dr. Grace AbdulCovid-19 PCR (CVDTB)on 26-42-3662BXPO-CoV-2 (COVID-19) RNA LUISITO+probe Ql (Unsp spec)Not detectedNormalNOT DETECTEDThe [facility] Comment on above:Result Comment: When diagnostic testing is negative, the [...] for this test is supported by the [place] of Health and Human Service's declaration that circumstances exist to justify the emergency use of in vitro diagnostics for the detection and/or diagnosis of the virus that causes COVID-19. This EUA will remain in effect for the duration of the COVID-19 declaration justifying emergency of IVDs, unless it is terminated or revoked by the FDA (after which the test may no longer be used).Performed By: #### CVDTBH #### [facility] [address] [place] [address] Dr. Grace AbdulLIPASEon 67-18-7972Qcxblm [Catalytic activity/Vol]178.0 U/LNormal 73.0-393.0The [facility] HospitalComment on above:Performed By: #### CVDTBH #### [facility] [address] [place] [address] Dr. Grace ArmendarizF 14(COMP METB)on 40-04-6167Wzhkdos [Mass/Vol]4.1 g/dLNormal 3.4-5.0The [facility] HospitalComment on above:Performed By: #### CVDTBH #### [facility] [address] [address] [address] Grace AbdulAlbumin/Globulin [Mass ratio]1.2 {ratio}NormalThe [facility] HospitalComment on above:Performed By: #### CVDTBH #### [facility] [address] [address] [address] Grace Wilcox [Catalytic activity/Vol]63 U/VQxogfy78-088Ado [facility] HospitalComment on above:Performed By: #### CVDTBH #### [facility] [address] [address] [address] Grace CalderonT [Catalytic activity/Vol]29 U/RLeinat43-46Fzc [facility] HospitalComment on above:Performed By: #### CVDTBH #### [facility] [address] [address] [address] Grace Mosley gap [Moles/Vol]14.8 mmol/LNormalThe [facility] Comment on above:Performed By: #### CVDTBH #### [facility] [address] [address] [address] Grace AbdulAST [Catalytic activity/Vol]25 U/DXbisnz73-95Nkk [facility] HospitalComment on above:Performed By: #### CVDTBH #### [facility] [address] [address] [address] Grace AbdulBilirubin [Mass/Vol]0.6 mg/dLNormal0.2-1.0The [facility] Comment on above:Performed By: #### CVDTBH #### [facility] [address] [address] [address] Grace AbdulCalcium [Mass/Vol]9.4 mg/dLNormal8.5-10.1[facility] Comment on above:Performed By: #### CVDTBH #### [facility] [address] [address] [address] Grace AbdulChloride [Moles/Vol]83 mmol/LCritically ijr33-714Jdp [facility] HospitalComment on above:Performed By: #### CVDTBH #### [facility] [address] [address] [address] Grace AbdulCO2 [Moles/Vol]24.4 mmol/KSckbgl85.0-32.0The [facility] Comment on above:Performed By: #### CVDTBH #### [facility] [address] [address] [address] Grace AbdulCreatinine [Mass/Vol]1.15 mg/dLCritically high0.55-1.02The [facility] HospitalComment on above:Performed By: #### CVDTBH #### [facility] [address] [place] [address] Dr. Edwards ChangEGFR-AF BENBCWZX87 mL/min/1.90g6Dimtpscsqs low>=60The [facility] HospitalComment on above:Performed By: #### CVDTBH #### [facility] [address] [address] [address] Grace RichardGFR-NON AF BHRWRYRW56 mL/min/1.10o2Lfftbgevik low>=60The [facility] HospitalComment on above:Performed By: #### CVDTBH #### [facility] [address] [address] [address] Grace AbdulGlobulin (S) [Mass/Vol]3.4 g/dLNormalThe [facility] HospitalComment on above:Performed By: #### CVDTBH #### [facility] [address] [address] [address] Grace AbdulGlucose [Mass/Vol]147 mg/dLCritically tuhb88-904Ljb [facility] HospitalComment on above:Performed By: #### CVDTBH #### [facility] [address] [place] [address] Dr. Grace AbdulPotassium [Moles/Vol]3.2 mmol/LCritically low3.5-5.1The [facility] HospitalComment on above:Performed By: #### CVDTBH #### [facility] [address] [address] [address] Grace AbdulProtein [Mass/Vol]7.5 g/dLNormal6.4-8.2The [facility] Comment on above:Performed By: #### CVDTBH #### [facility] [address] [address] [address] Grace AbdulUrea nitrogen/Creatinine [Mass ratio]21.7 mg/mgNormalThe [facility] HospitalComment on above:Performed By: #### CVDTBH #### [facility] [address] [place] [address] Dr. Grace AbdulPROF CHEM 8 (BAS METB)on 89-68-1723Hrzzv gap [Moles/Vol]13.6 mmol/LNormalThe [facility] HospitalComment on above:Performed By: #### CVDTBH #### [facility] [address] [place] [address] Dr. Grace AbdulCalcium [Mass/Vol]8.8 mg/dLNormal8.5-10.1[facility] Comment on above:Performed By: #### CVDTBH #### [facility] [address] [place] [address] Dr. Grace AbdulChloride [Moles/Vol]88 mmol/LCritically xej57-724VivMary [facility] HospitalComment on above:Performed By: #### CVDTBH #### [facility] [address] [place] [address] Dr. Grace AbdulCO2 [Moles/Vol]21.8 mmol/VGhmlct55.0-32.0The [facility] Comment on above:Performed By: #### CVDTBH #### [facility] [address] [place] [address] Dr. Grace AbdulCreatinine [Mass/Vol]1.11 mg/dLCritically high0.55-1.02[facility] HospitalComment on above:Performed By: #### CVDTBH #### [facility] [address] [address] [address] Edwards ChangEGFR-AF SLRJQUYW73 mL/min/1.89b6Djprsiqngw low>=60The [facility] HospitalComment on above:Performed By: #### CVDTBH #### [facility] [address] [address] [address] Grace RichardGFR-NON AF KUGAPJMU95 mL/min/1.35g3Fgoibzhlta low>=60The [facility] HospitalComment on above:Performed By: #### CVDTBH #### [facility] [address] [place] [address] Dr. Grace AbdulGlucose [Mass/Vol]132 mg/dLCritically hlnz66-829Gdk [facility] on above:Performed By: #### CVDTBH #### [facility] [address] [place] [address] Dr. Grace AbdulPotassium [Moles/Vol]3.4 mmol/LCritically low3.5-5.1The [facility] HospitalComment on above:Performed By: #### CVDTBH #### [facility] [address] [place] [address] Dr. Grace AbdulSodium [Moles/Vol]120 mmol/LCritically vrb155-075Wra [facility] on above:Result Comment: Test Repeated. Critical Value Verified Performed By: #### CVDTBH #### [facility] [address] [place] [address] Dr. Grace AbdulUrea nitrogen [Mass/Vol]25.0 mg/dLCritically high7.0-18.0The [facility] on above:Performed By: #### CVDTBH #### [facility] [address] [place] [address] Dr. Grace AbdulUrea nitrogen/Creatinine [Mass ratio]22.5 mg/mgNormalThe [facility] HospitalComhawthorn center on above:Performed By: #### CVDTBH #### [facility] [address] [place] [address] Dr. Grace AbdulPROTIMEjustina 07-03-1061TFN Coag (PPP) [Relative time]0.94 {INR} NormalSalem City Hospitalment on above:Performed By: #### CVDTBH #### [facility] [address] [address] [address] Grace KellyR GUIDELINESSEE [facility] HospitalComment on above:Result Comment: DESIRED INR: 2.0 - 3.0 CONDITIONS NOT LISTED BELOW 2.5 - 3.5 FOR PROSTHETIC HEART VALVE REPLACEMENT 2.5 - 3.5 RECURRENT THROMBOSIS Performed By: #### CVDTBH #### [facility] [id number] Grace AbdulPT Coag (PPP) [Time]10.2 sNormal9.0-11.6The [facility] Comment on above:Performed By: #### CVDTBH #### [facility] [address] [address] [address] Grace AbdulXR ABD FLAT UP_PA Sergio 54-02-5618RF ABD FLAT UP_PA CHX-RAY ABDOMINAL WITH CHEST. INDICATION: Nausea and vomiting. [...] Electronically authenticated by: JARET LINARES Date: 2021-11-15 13:[address] [place], [place] [address]BNPon 69-95-8240Lqqrytngdnz peptide B (Bld) [Mass/Vol]546.0 pg/mLNormal<=1,800.0The [facility] on above:Performed By: #### CMP, TSH, HSTROPN, BNP ####[facility] [address] [place], [place] [address]VpDr. Grace Casey AUTO DIFFon 93-65-1677NCPI #0.0 103/ulNormal0.0-0.1The [facility] HospitalComment on above:Performed By: #### CBC #### [facility] [address] [place] [address] Dr. Grace AbdulBasophils/100 WBC (Bld)0.3 %Normal0.2-2.0The [facility] on above:Performed By: #### CBC #### [facility] [address] [place] [address] Dr. Grace Blunt #0.0 103/ulNormal0.0-0.7The [facility] HospitalComment on above: Performed By: #### CBC #### [facility] [address] [place] [address] Dr. Grace Richardosinophils/100 WBC (Bld)0.5 %Critically low0.9-7.0The [facility] HospitalComment on above:Performed By: #### CBC #### [facility] [address] [place] [address] Dr. Grace Richardrythrocyte distribution width (RBC) [Ratio]12.9 %Qxgrzj50.0-15.0 The [facility] HospitalComment on above:Performed By: #### CBC #### [facility] [address] [place] [address] Dr. Grace AbdulHematocrit (Bld) [Volume fraction]36.1 %Sitcmr47.0-48.0The [facility] HospitalComment on above:Performed By: #### CBC #### [facility] [address] [place] [address] Dr. Grace AbdulHemoglobin (Bld) [Mass/Vol]12.3 g/zSYnkjmn98.0-16.0The [facility] HospitalComment on above:Performed By: #### CBC #### [facility] [address] [place] [address] Dr. Grace Son #0.01 10e3/ulNormal0.00-0.03The [facility] HospitalComment on above:Performed By: #### CBC #### [facility] [address] [place] [address] Dr. Grace Son %0.3 %Normal0.0-0.5The [facility] HospitalComment on above: Performed By: #### CBC #### [facility] [address] [place] [address] Dr. Grace Hamilton #0.6 103/ulCritically low1.2-3.8The [facility] Comment on above:Performed By: #### CBC #### [facility] [address] [place] [address] Dr. Grace Willishocytes/100 WBC (Bld)14.8 %Critically low20.5-60.0The [facility] HospitalComment on above:Performed By: #### CBC #### [facility] [address] [place] [address] Dr. Grace Gee DIFF REQNONormalThe [facility] HospitalComment on above: Performed By: #### CBC #### [facility] [address] [place] [address] Dr. Grace Joy (RBC) [Entitic mass]31.5 pwRtkftb68.7-34.0The [facility] HospitalComment on above:Performed By: #### CBC #### [facility] [address] [place] [address] Dr. Grace Perdomo (RBC) [Mass/Vol]34.1 g/qABednlt90.9-35.2The [facility] HospitalComment on above:Performed By: #### CBC #### [facility] [address] [place] [address] Dr. Grace Serrano (RBC) [Entitic vol]92.6 eYVsbcrc81.0-99.0The [facility] HospitalComment on above:Performed By: #### CBC #### [facility] [address] [place] [address] Dr. Grace Barrios #0.5 103/ulNormal0.3-0.8The [facility] HospitalComment on above:Performed By: #### CBC #### [facility] [address] [place] [address] Dr. Grace Riderocytes/100 WBC (Bld)13.5 %Critically high1.7-12.0The [facility] HospitalComment on above:Performed By: #### CBC #### [facility] [address] [place] [address] Dr. Grace Brar #2.7 103/ulNormal1.4-6.5The [facility] HospitalComment on above:Performed By: #### CBC #### [facility] [address] [place] [address] Dr. Grace Solitarioutrophils/100 WBC (Bld)70.6 %Xjujql43.0-75.0The [facility] HospitalComment on above:Performed By: #### CBC #### [facility] [address] [place] [address] Dr. Grace AbdulPlatelet mean volume (Bld) [Entitic vol]9.2 fLCritically low 9.5-13.5The [facility] HospitalComment on above:Performed By: #### CBC #### [facility] [address] [place] [address] Dr. Grace AbdulPLT279 103/xrVlctol018-886Njp [facility] HospitalComhaw[facility]orn center on above: Performed By: #### CBC #### [facility] [address] [place] [address] Dr. Grace AbdulRBC3.90 106/ulCritically low4.20-5.40The [facility] on above:Performed By: #### CBC #### [facility] [address] [place] [address] Dr. Grace AbdulWBC3.9 103/ulCritically low4.0-11.0The [facility] HospitalComment on above:Performed By: #### CBC #### [facility] [address] [place] [address] Dr. Grace AbdulPROF 14(COMP METB)on 49-41-5297Quopeku [Mass/Vol]3.3 g/dL Critically low3.4-5.0The [facility] HospitalComment on above:Performed By: #### CMP, TSH, HSTROPN, BNP #### [facility] [address] [place] [address] Dr. Grace AbdulAlbumin/Globulin [Mass ratio]1.2 {ratio}NormalThe [facility] HospitalComment on above:Performed By: #### CMP, TSH, HSTROPN, BNP #### [facility] [address] [place] [address] Dr. Grace CalderonP [Catalytic activity/Vol]60 U/GMvlbtd34-050Vox [facility] HospitalComment on above:Performed By: #### CMP, TSH, HSTROPN, BNP #### [facility] [address] [place] [address] Dr. Grace Restrepo [Catalytic activity/Vol]26 U/MUuuczp37-01Fqj [facility] HospitalComment on above:Performed By: #### CMP, TSH, HSTROPN, BNP #### [facility] [address] [place] [address] Dr. Grace Kauffmanon gap [Moles/Vol]14.8 mmol/LNormalThe [facility] Comment on above:Performed By: #### CMP, TSH, HSTROPN, BNP #### [facility] [address] [place] [address] Dr. Grace AbdulAST [Catalytic activity/Vol]20 U/KJiynav96-75Czu [place] [facility] on above:Performed By: #### CMP, TSH, HSTROPN, BNP #### [facility] [address] [place] [address] Dr. Grace AbdulBilirubin [Mass/Vol]0.3 mg/dLNormal0.2-1.0The [facility] Comment on above:Performed By: #### CMP, TSH, HSTROPN, BNP #### [facility] [address] [place] [address] Dr. Grace AbdulCalcium [Mass/Vol]8.2 mg/dLCritically low8.5-10.1The [facility] HospitalComment on above:Performed By: #### CMP, TSH, HSTROPN, BNP #### [facility] [address] [place], [place] [id number] Dr. Grace AbdulChloride [Moles/Vol]100 mmol/ZMrxgur47-570Pge [facility] Comment on above:Performed By: #### CMP, TSH, HSTROPN, BNP #### [facility] [address] [place] [address] Dr. Grace AbdulCO2 [Moles/Vol]23.8 mmol/IPyszqq58.0-32.0The [facility] Comment on above:Performed By: #### CMP, TSH, HSTROPN, BNP #### [facility] [address] [place] [address] Dr. Grace AbdulCreatinine [Mass/Vol]1.27 mg/dLCritically high0.55-1.02[facility] HospitalComment on above:Performed By: #### CMP, TSH, HSTROPN, BNP #### [facility] [address] [place] [address] Dr. Grace RichardGFR-AF UFCPVNYH95 mL/min/1.18b7Ognyxcbbzj low>=60The [facility] HospitalComment on above:Performed By: #### CMP, TSH, HSTROPN, BNP #### [facility] [address] [place] [address] Dr. Grace Byrd-NON AF QYWTNEEK37 mL/min/1.34y2Aiiitmdnip low>=60The [facility]y HospitalComment on above:Performed By: #### CMP, TSH, HSTROPN, BNP #### [facility] [address] [place] [address] Dr. Grace AbdulGlobulin (S) [Mass/Vol]2.7 g/dLNormalThe Corey HospitalComment on above:Performed By: #### CMP, TSH, HSTROPN, BNP #### [facility] [address] [place] [address] Dr. Grace AbdulGlucose [Mass/Vol]116 mg/dLCritically sqnx62-741Ymt [facility] HospitalComment on above:Performed By: #### CMP, TSH, HSTROPN, BNP #### [facility] [address] [place] [address] Dr. Grace AbudlPotassium [Moles/Vol]3.6 mmol/LNormal3.5-5.1The [facility] Comment on above:Performed By: #### CMP, TSH, HSTROPN, BNP #### [facility] [address] [address] [address] Grace AbdulProtein [Mass/Vol]6.0 g/dLCritically low6.4-8.2The [facility] HospitalComment on above:Performed By: #### CMP, TSH, HSTROPN, BNP #### [facility] [address] [address] [address] Grace AbdulSodium [Moles/Vol]135 mmol/LCritically lzj732-098Dak [facility] HospitalComment on above:Performed By: #### CMP, TSH, HSTROPN, BNP #### [facility] [address] [place] [address] Dr. Grace AbdulUrea nitrogen [Mass/Vol]25.0 mg/dLCritically high7.0-18.0The [facility] HospitalComment on above:Performed By: #### CMP, TSH, HSTROPN, BNP #### [facility] [address] [place] [address] Dr. Grace Bernal nitrogen/Creatinine [Mass ratio]19.7 mg/mgNoMarymount HospitalComment on above:Performed By: #### CMP, TSH, HSTROPN, BNP #### [facility] [address] [place] [address] Dr. Grace AbdulPROTIMEjustina 56-67-8779TTF Coag (PPP) [Relative time]0.95 {INR} NormalThe Corey HospitalComment on above:Performed By: #### BMP #### [facility] [address] [place] [address] Dr. Grace Ayala GUIDELINESSEE BELOWMansfield HospitalComment on above:Result Comment: DESIRED INR: 2.0 - 3.0 CONDITIONS NOT LISTED BELOW 2.5 - 3.5 FOR PROSTHETIC HEART VALVE REPLACEMENT 2.5 - 3.5 RECURRENT THROMBOSIS Performed By: #### BMP #### [facility] [address] [place], [place] [address] Dr. Grace Robles Coag (PPP) [Time]10.3 sNormal9.0-11.6[facility] Comment on above:Performed By: #### BMP #### [facility] [address] [place], [place] [address] Dr. Grace Villa 74-73-2358tJTG Coag (Bld) [Time]21.3 sCritically low 22.3-36.2The [facility] HospitalComment on above:Performed By: #### BMP #### [facility] [address] [address] [address] Grace Bland HIGH SENSITIVITYon 35-37-6718NDQBPX3.5 pg/mLNormal 4.0-51.3The [facility] HospitalComment on above:Result Comment: CUT-OFF POINTS HAVE BEEN ESTABLISHED BASED ON THE FOURTH UNIVERSAL DEFINITIONS OF MYOCARDIAL INFARCTION. THE UPPER REFERENCE LIMIT (URL) OF TROPONIN, DEFINED THE 99TH PERCENTILE OF cTnI DISTRIBUTION IN A REFERENCE POPULATION, HAS BEEN CONFIRMED THE DECISION THRESHOLD FOR AR DIAGNOSIS.Performed By: #### CMP, TSH, HSTROPN, BNP #### [facility] [address] Grace Vivas 06-63-3537QKZ8.140 uIU/mLNormal0.358-3.740The [facility] HospitalComment on above:Performed By: #### CMP, TSH, HSTROPN, BNP ####[facility] [address] [place], [place] [address]XvDr. Grace AbdulXR CHEST 1 Von 41-25-6377RJ CHEST 1 VEXAMINATION: XR CHEST 1 V HISTORY: COUGH , dizziness, weakness [...] Electronically authenticated by: KRANTHI CONNORS Date: 2021-11-11 13:34NoMarymount HospitalCARDIAC JOVITA ADMITon [id number] [Catalytic activity/Vol]89 U/AHeafwh71-369Kod [facility] HospitalComment on above:Performed By: #### CVDTBH #### [facility] [address] [address] [address] Grace Dawn.MB [Mass/Vol]1.92 ng/mLNormal<=3.60[facility] Comment on above:Performed By: #### CVDTBH #### [facility] [address] [address] [address] Grace DaoTROP5.7 pg/mLNormal4.0-51.3The [facility] HospitalComment on above:Result Comment: CUT-OFF POINTS HAVE BEEN ESTABLISHED BASED ON THE FOURTH UNIVERSAL DEFINITIONS OF MYOCARDIAL INFARCTION. THE UPPER REFERENCE LIMIT (URL) OF TROPONIN, DEFINED THE 99TH PERCENTILE OF cTnI DISTRIBUTION IN A REFERENCE POPULATION, HAS BEEN CONFIRMED THE DECISION THRESHOLD FOR AR DIAGNOSIS.Performed By: #### CVDTBH #### [facility] [address] [address] [address] Grace Woods86 ng/mLCritically high9-82The [facility] HospitalComment on above:Performed By: #### CVDTBH #### [facility] [address] [address] [address] Grace Casey AUTO DIFFon 82-86-2436CMTS #0.0 103/ulNormal0.0-0.1The [facility]y HospitalComment on above:Performed By: #### CVDTBH #### [facility] [address] [address] [address] Grace AbdulBasophils/100 WBC (Bld)0.5 %Normal0.2-2.0[facility] Comment on above:Performed By: #### CVDTBH #### [facility] [address] [address] [address] Grace Blunt #0.0 103/ulNormal0.0-0.7The [facility] HospitalComment on above: Performed By: #### CVDTBH #### [facility] [address] [place] [address] Dr. Grace Richardosinophils/100 WBC (Bld)0.7 %Critically low0.9-7.0The [facility]y HospitalComment on above:Performed By: #### CVDTBH #### [facility] [address] [place] [address] Dr. Grace Richardrythrocyte distribution width (RBC) [Ratio]13.2 %Gvvdwy88.0-15.0 The [facility]y HospitalComment on above:Performed By: #### CVDTBH #### [facility] [address] [place] [address] Dr. Grace AbdulHematocrit (Bld) [Volume fraction]34.8 %Critically low36.0-48.0 The [facility] HospitalComment on above:Performed By: #### CVDTBH #### [facility] [address] [place] [address] Dr. Grace AbdulHemoglobin (Bld) [Mass/Vol]11.9 g/dLCritically low12.0-16.0The [facility] HospitalComment on above:Performed By: #### CVDTBH #### [facility] [address] [place] [address] Dr. Grace Son #0.01 10e3/ulNormal0.00-0.03The [facility] HospitalComment on above:Performed By: #### CVDTBH #### [facility] [address] [place] [address] Dr. Grace Son %0.2 %Normal0.0-0.5The [facility]y HospitalComment on above: Performed By: #### CVDTBH #### [facility] [address] [place] [address] Dr. Grace WillisH #0.6 103/ulCritically low1.2-3.8[facility] Comment on above:Performed By: #### CVDTBH #### [facility] [address] [place] [address] Dr. Grace Hillmphocytes/100 WBC (Bld)14.2 %Critically low20.5-60.0The [facility] HospitalComment on above:Performed By: #### CVDTBH #### [facility] [address] [place] [address] Dr. Grace FloresUAL DIFF REQNONormalThe Corey HospitalComment on above: Performed By: #### CVDTBH #### [facility] [address] [place] [address] Dr. Grace Perdomo (RBC) [Entitic mass]31.5 weOpuxsd66.7-34.0The [facility] HospitalComment on above:Performed By: #### CVDTBH #### [facility] [address] [place] [address] Dr. Grace Perdomo (RBC) [Mass/Vol]34.2 g/xHReyfgm34.9-35.2The [facility] HospitalComment on above:Performed By: #### CVDTBH #### [facility] [address] [place] [address] Dr. Grace Perdomo (RBC) [Entitic vol]92.1 vVCduoyh75.0-99.0The [facility] HospitalComment on above:Performed By: #### CVDTBH #### [facility] [address] [place] [address] Dr. Grace Barrios #0.7 103/ulNormal0.3-0.8The [facility] HospitalComment on above:Performed By: #### CVDTBH #### [facility] [address] [place] [address] Dr. Grace Riderocytes/100 WBC (Bld)15.6 %Critically high1.7-12.0The [facility] HospitalComment on above:Performed By: #### CVDTBH #### [facility] [address] [place] [address] Dr. Grace Brar #3.0 103/ulNormal1.4-6.5The [facility] HospitalComment on above:Performed By: #### CVDTBH #### [facility] [address] [place] [address] Dr. Grace Solitarioutrophils/100 WBC (Bld)68.8 %Osskas14.0-75.0The [facility] HospitalComment on above:Performed By: #### CVDTBH #### [facility] [address] [place] [address] Dr. Grace AbdulPlatelet mean volume (Bld) [Entitic vol]9.5 fLNormal9.5-13.5The [facility]y HospitalComment on above:Performed By: #### CVDTBH #### [facility] [address] [place] [address] Dr. Grace AbdulPLT303 103/lwTpbyrb705-940Xki [facility] HospitalComment on above: Performed By: #### CVDTBH #### [facility] [address] [place] [address] Dr. Grace AbdulRBC3.78 106/ulCritically low4.20-5.40The [facility] HospitalComment on above:Performed By: #### CVDTBH #### [facility] [address] [place] [address] Dr. Grace AbdulWBC4.4 103/ulNormal4.0-11.0The [facility] HospitalComment on above: Performed By: #### CVDTBH #### [facility] [address] [place] [address] Dr. Grace AbdulCT HEAD WO CONon [id number] HEAD WO CONEXAMINATION: CT HEAD WO CON HISTORY: Dizziness , [...] Electronically authenticated by: KRANTHI CONNORS Date: 2021-09-13 13:24NoMarymount HospitalCovid-19 PCR (CVDTBH)on 40-73-1209HBLF-CoV-2 (COVID-19) RNA LUISITO+probe Ql (Unsp spec)Not detectedNormalNOT DETECTEDMary [facility] Comment on above:Result Comment: When diagnostic testing is negative, the [...] for this test is supported by the [place] of Health and Human Service's declaration that circumstances exist to justify the emergency use of in vitro diagnostics for the detection and/or diagnosis of the virus that causes COVID-19. This EUA will remain in effect for the duration of the COVID-19 declaration justifying emergency of IVDs, unless it is terminated or revoked by the FDA (after which the test may no longer be used).Performed By: #### CVDTBH #### [facility] [address] [place] [address] Dr. Edwards ChangEJimenez URINE PROFILEon 76-62-1927Dagcvzvdy Ql (U)NegativeNormal NEGATIVEMary Rutan HospitalComment on above:Performed By: #### BMP #### [facility] [address] [address] [address] Grace Phelps (U)CLEARNormalCLEARMary Rutan HospitalComment on above: Performed By: #### BMP #### [facility] [address] [place] [address] Dr. Grace Powell (U)LT. YELLOWNormalYELLOWMary Rutan HospitalComment on above:Performed By: #### BMP #### [facility] [address] [place] [address] Dr. Grace Schmidt micrscopic examination will be performed if indicated. NormalMary Rutan HospitalComment on above:Performed By: #### BMP #### [facility] [address] [address] [address] Grace AbdulGlucose Ql (U)NegativeNormalNEGATIVEMary Rutan HospitalComment on above:Performed By: #### BMP #### [facility] [address] [place] [address] Dr. Grace AbdulHemoglobin Ql (U)NegativeNormalNEGWayne Hospital Comment on above:Performed By: #### BMP #### [facility] [address] [place] [address] Dr. Grace AbdulKetones Ql (U)TRACEAbnormalNEGATIVEMary Rutan HospitalComment on above:Performed By: #### BMP #### [facility] [address] [place] [address] Dr. Grace AbdulLEUKOCYTESTRACEAbnormalNEGATIVEMary Rutan HospitalComment on above:Performed By: #### BMP #### [facility] [address] [place] [address] Dr. Grace AbdulNitrite Ql (U)NegativeNormalNEGATIVEMary Rutan HospitalComment on above:Performed By: #### BMP #### [facility] [address] [place] [address] Dr. Grace AbdulpH (U)8.0 [pH]Normal5-9Mary [facility] HospitalComment on above: Performed By: #### BMP #### [facility] [address] [place] [address] Dr. Grace AbdulSPEC GRAVITY1.351Xjzdmf6.005-<=1.025[facility] HospitalComment on above:Performed By: #### BMP #### [facility] [address] [place] [address] Dr. Grace AbdulUA PROTEINNegativeNormalNEGATIVE/ TRACEMary [facility] Hospital Comment on above:Performed By: #### BMP #### [facility] [address] [place] [address] Dr. Grace Triplett MICRO INDINDICATEDNormalThe [facility]y HospitalComment on above: Performed By: #### BMP #### [facility] [address] [place] [address] Dr. Grace AbdulUrobilinogen Qn (U)0.2 {Ashley'U}/dLNormal0.2 - 1.0The [facility] HospitalComment on above:Performed By: #### BMP #### [facility] [address] [place] [address] Dr. Grace AbdulPROF 14(COMP METB)on 88-46-8358Dezkain [Mass/Vol]3.8 g/dLNormal 3.4-5.0The [facility] HospitalComment on above:Performed By: #### CVDTBH #### [facility] [address] [place] [address] Dr. Grace AbdulAlbumin/Globulin [Mass ratio]1.4 {ratio}NormalThe [facility] HospitalComment on above:Performed By: #### CVDTBH #### [facility] [address] [place] [address] Dr. Grace Wilcox [Catalytic activity/Vol]53 U/EQjtbeo62-978Vbm [place] [facility] Hospitalment on above:Performed By: #### CVDTBH #### [facility] [address] [place] [address] Dr. Grace Restrepo [Catalytic activity/Vol]20 U/LOkaezf11-20Xrq [place] [facility] Hospitalment on above:Performed By: #### CVDTBH #### [facility] [address] [place] [address] Dr. Grace Mosley gap [Moles/Vol]12.0 mmol/LNormalThe [facility] on above:Performed By: #### CVDTBH #### [facility] [address] [place] [address] Dr. Grace Mortensen [Catalytic activity/Vol]18 U/VLatjbj57-31Gvn [facility] HospitalComment on above:Performed By: #### CVDTBH #### [facility] [address] [address] [address] Grace AbdulBilirubin [Mass/Vol]0.4 mg/dLNormal0.2-1.0[facility] Comment on above:Performed By: #### CVDTBH #### [facility] [address] [place] [address] Dr. Grace AbdulCalcium [Mass/Vol]9.5 mg/dLNormal8.5-10.1[facility] Comment on above:Performed By: #### CVDTBH #### [facility] [address] [place] [address] Dr. Grace AbdulChloride [Moles/Vol]99 mmol/KFxlgsr64-989XolMary [facility] Hospital Comment on above:Performed By: #### CVDTBH #### [facility] [address] [place] [address] Dr. Grace AbdulCO2 [Moles/Vol]28.1 mmol/UTiuptp46.0-32.0[facility] Comment on above:Performed By: #### CVDTBH #### [facility] [address] [place] [address] Dr. Grace AbdulCreatinine [Mass/Vol]1.25 mg/dLCritically high0.55-1.02The [facility] HospitalComment on above:Performed By: #### CVDTBH #### [facility] [address] [place] [address] Dr. Grace RichardGFR-AF XSPNTUXO89 mL/min/1.59p4Rpqaglzzhd low>=60The [facility] HospitalComment on above:Performed By: #### CVDTBH #### [facility] [address] [place] [address] Dr. Grace RichardGFR-NON AF ZCSYPEZN77 mL/min/1.75y0Upjatdiwmx low>=60The [facility] HospitalComment on above:Performed By: #### CVDTBH #### [facility] [address] [place] [address] Dr. Grace AbdulGlobulin (S) [Mass/Vol]2.7 g/dLNoMarymount HospitalComment on above:Performed By: #### CVDTBH #### [facility] [address] [place] [address] Dr. Grace AbdulGlucose [Mass/Vol]131 mg/dLCritically pbph35-359Wrv [facility] HospitalComment on above:Performed By: #### CVDTBH #### [facility] [address] [place] [address] Dr. Grace AbdulPotassium [Moles/Vol]4.1 mmol/LNormal3.5-5.1[facility] Comment on above:Performed By: #### CVDTBH #### [facility] [address] [place] [address] Dr. Grace AbdulProtein [Mass/Vol]6.5 g/dLNormal6.4-8.2[facility] Comment on above:Performed By: #### CVDTBH #### [facility] [address] [place] [address] Dr. Grace AbdulSodium [Moles/Vol]135 mmol/LCritically dzx847-387Bsy [facility] HospitalComment on above:Performed By: #### CVDTBH #### [facility] [address] [place] [address] Dr. Grace AbdulUrea nitrogen [Mass/Vol]33.0 mg/dLCritically high7.0-18.0The [facility] HospitalComment on above:Performed By: #### CVDTBH #### [facility] [address] [place] [address] Dr. Grace AbdulUrea nitrogen/Creatinine [Mass ratio]26.4 mg/mgNoMarymount HospitalComment on above:Performed By: #### CVDTBH #### [facility] [address] [place] [address] Dr. Grace AbdulURINE MICROSCOPIC ONLYon 36-58-1158SYDBJGSUKNER SEENNormalNONE SEENMary Rutan HospitalComment on above:Performed By: #### CBC #### [facility] [address] [place] [address] Dr. Grace Bella identified Cx Nom (U)NOT INDICATEDNoalThFirelands Regional Medical Center South CampusComment on above:Performed By: #### CBC #### [facility] [address] [place] [address] Dr. Grace Alexandra SEENNormalNONE SEENMary Rutan HospitalComhawthorn center on above:Performed By: #### CBC #### [facility] [address] [place] [address] Dr. Grace Sood LM Nom (Urine sed)NONE SEENNormalNONE SEENThe [facility] HospitalComment on above:Performed By: #### CBC #### [facility] [address] [place] [address] Dr. Grace Goddardthelial cells LM Ql (Urine sed)FEWAbnormalNONE SEEN /RAREThe [facility] HospitalComment on above:Performed By: #### CBC #### [facility] [address] [place] [address] Dr. Grace Snyder SEENNormalNONE SEENMary Rutan HospitalComhawthorn center on above:Performed By: #### CBC #### [facility] [address] [place] [address] Dr. Grace MontoyaRorxbRJT4-5Hivkxh9-1Grx [facility] HospitalComhawthorn center on above:Performed By: #### CBC #### [facility] [address] [place] [address] Dr. Grace AbdulWBC0-2AbnormalNONE SEENMary Rutan HospitalComment on above: Performed By: #### CBC #### [facility] [address] [place] [address] Dr. Grace AbdulXR CHEST 1 Von 33-21-6468CG CHEST 1 VEXAMINATION: XR CHEST 1 V HISTORY: Dizziness , shortness of [...] Electronically authenticated by: KRANTHI CONNORS Date: 2021-09-13 13:19[facility] HospitalCERV SP W/OBLS/FLEX/EXT 6 OR >on 37-17-0392MQWM SP W/OBLS/FLEX/EXT 6 OR >STUDY: CERV SP W/OBLS/FLEX/EXT 6 OR >; 12/12/2020 9:40 am INDICATION: NECK PAIN. COMPARISON: None. ACCESSION NUMBER(S): [id number] ORDERING CLINICIAN: Aiden Younger TECHNIQUE: AP, lateral, [...] No acute findings. Dense left carotid artery calcifications.NormalSt. St. [facility] Vital Signs Date TimeVital SignValuePerforming HroskeqcaOquoqjpt14-35-8533 11:32-0400Body vxiqwg347.3 cmArmando Thayer DO Work Phone: [employer] Atxgrvxqvy83-52-5222 11:32-0400Body mass index (BMI) [Ratio]34.28 kg/j4Vixysdgmario Thayer DO Work Phone: noNM Bgfalrytwo40-95-0622 11:32-0400Body wxsrid03.39 kgArmando Thayer DO Work Phone: noHedrick Medical CenterFxvxazqxlz26-37-5082 11:32-0400Diastolic blood mm[Hg]Armando Pattersoner DO Work Phone: [facility] CenterDsnwnjdjxo73-61-5170 11:32-0400Systolic blood krmmjbga031 mm[Hg]Armando Thayer DO Work Phone: [facility] CenterJblpwfksjb44-33-2194 12:51-0400Diastolic blood tnionyim54 mm[Hg]Carolyn Vanegas MD Work Phone: [facility]08-01-2023 12:51-0400Heart rate67 /min Carolyn Vanegas MD Work Phone: [facility]08-01-2023 12:51-0400Systolic blood mm[Hg]Carolyn Vanegas MD Work Phone: [facility]03-24-2023 14:24-0400Diastolic blood onddwdum41 mm[Hg]Marty Dozier DO Work Phone: [facility]03-24-2023 14:24-0400Heart rate72 /min Marty Dozier DO Work Phone: [facility]03-24-2023 14:24-0400Systolic blood pgklufiz321 mm[Hg]Marty Dozier DO Work Phone: [facility]03-24-2023 14:22-0400Body jfpfix132.4 cmPhisofia Dozier DO Work Phone: [facility]03-24-2023 14:22-0400Body .39 kgPhisofia Dozier DO Work Phone: [facility]03-24-2023 14:22-7343ScI2% (BldA) [Mass fraction]99 %Marty Dozier DO Work Phone: [facility] Encounters Encounter DateEncounter TypeCare ProviderFacilityStart: 62-76-0440czuhfqptyt Jacinta TannaFacility:EU [place]vueStart: 11-14-2024 End: 91-34-0562mvysmvzsriEfzjzb TannaFacility:EU [place]vueStart: 11-14-2024 End: 42-30-5345Lbevojn encounter procedureLauren Mercedes [facility] start: 10-10-2024 End: 37-57-7564tojombtdbiXozfy M. BillieKimacility:FTMCStart: 10-10-2024 End: 24-82-5446dpuhihemlvRqsmd MLisette LueFacility:EU [place]vueStart: 10-10-2024 End: 64-07-7831Vneqmxa encounter Kira Calix [facility] Evelyn start: 10-01-2024 End: 95-74-3166bqpetdrmdvXzlumlz Vytautas Giedraitis MDFacility:PM [place] Start: 34-72-0637mwhhaqukzoCcduta TannaFacility:EU [place]kyStart: 09-22-2024 End: 11-47-3218Lwykkzb encounter procedureGalina Bach MD-Lab [facility] Work Phone: Start: 09-22-2024 End: 01-10-7951dxnwupoigaZzlzhta M [facility] Work Phone: Start: 06-18-2024 End: 75-35-2515mdqztwzpooPzlspxk Vytautas Giedraitis MDFacility:PM [place] Start: 05-28-2024 End: 36-94-5987kwlfqwiyxqBmumeex Vytautas Giedraitis MDFacility:PM [place] Start: 04-30-2024 End: 24-14-2106rotnvdqmcqIkesbct Vytautas Giedraitis MDFacility:PM [place] Start: 02-06-2024 End: 08-34-2157hwbyhbdkjaEeprqgj Vytautas Giedraitis MDFacility:[facility] [place] Start: 01-16-2024 End: 73-69-2879vyzomxszuoPtpjrzv Vytautas Giedraitis MDFacility:[facility] [place] Start: 12-06-2023 End: 64-24-7850Ncrkgwp encounter procedureArmando Thayer DO Work Phone: [facility] OBComment on above:Encounter for gynecological examination without abnormal finding; Encounter for Papanicolaou smear of vagina; Breast cancer screening by mammogramStart: 12-06-2023 End: 74-85-8076Ejuouwz encounter statusArmando Thayer DO Work Phone: [facility] HealthcareStart: 12-06-2023 End: 62-54-2989wpjvbfowdfPGQCFAX D BRUNERNot AvailableStart: 08-08-2023 End: 40-48-6508olldmsqbvlTMCOLETTE BRIGHT AvailableStart: 09-21-2022 End: 13-05-0663xxltsjoahxAKFIZEC M HOYFacility:[facility] Hospitaltart: 09-21-2022 End: 15-79-7761Ghsoocl encounter procedureCarolyn Vanegas MD Work Phone: NeurosurgeryComment on above:Obesity, Class I, BMI 30- 34.9 (Primary Dx); Spinal stenosis, lumbar region with neurogenic claudicationStart: 08-19-2022 Chart abstractingNone (Historical)NeurologyStart: 88-19-7938hlwootcgku NARENDRANATH LAKSHMIPATHY .Facility:J4Ztqul: 07-16-2022 End: 11-24-8534ejtjuijmaxCU GALINA PALMER .Facility:A8Fnhdn: 06-22-2022 End: 12-83-1048vxdytiyqluBKEFPNHCMFVN LAKSHMIPATHY .Facility:Z3Neftv: 06-15-2022 End: 03-66-3228uxihuqgwyrFOCINBJGDOJN LAKSHMIPATHY .Facility:K0Mkkjl: 06-10-2022 ambulatoryDR GALINA PALMER .Facility:I0Tdced: 06-01-2022 End: 19-29-1208naamrowtglPHYKKWDRABUN LAKSHMIPATHY .Facility:I1Tqvpd: 05-14-2022 End: 83-89-9748rfxtphmcliFUUGZBS G MENDISFacility:[facility] Start: 05-14-2022 End: 27-80-9981Gifgnpu encounter procedurePhisofia Dozier DO Work Phone: Spcat MedicineComment on above: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); Back pain, lumbosacral; Chronic sacroiliac joint pain; Lumbar spondylosis; Scoliosis of lumbar spine, unspecified scoliosis typeStart: 05-13-2022 End: 04-21-7201dbfakfazwvKSPKADHWRBMA LAKSHMIPATHY .Facility:C0Bbxmq: 04-13-2022 End: 63-64-4176xvwdlarpqiZT NIKO S BECKWITH .Facility:X1Hmfgt: 04-06-2022 End: 58-82-7509iunahhugcyPP NIKO S BECKWITH .Facility:P9Xhxlk: 04-05-2022 End: 77-55-4650mgfcnbeblbTZ GALINA HOY .Facility:I7Mrsis: 04-04-2022 End: 68-97-6325uhfkgnrjbrRR MATTHEW MEYER .Facility:N2Ksvry: 03-11-2022 End: 47-62-8715ohdwykmubvPQ GALINA HOY .Facility:C8Iwasj: 02-09-2022 End: 45-69-5908lgfhlqkwqgHY GALINA HOY .Facility:T5Kccwj: 01-28-2022 End: 57-81-4947nipsuokfmpVJXZ SEQUEIRA .Facility:P6Srhpy: 01-12-2022 End: 75-91-2116ospnroxdqaEP NIKO S BECKWITH .Facility:L4Sewpn: 12-31-2021 End: 58-34-1863sqgdwqktktVBYM SEQUEIRA .Facility:Q1Mttxm: 55-78-6448uhedypyhcjLE GALINA HOY .Facility:P1Ehqnh: 12-11-2021 End: 43-50-2859sourcljmhgHB GALINA HOY .Facility:D3Iiavr: 11-25-2021 End: 16-65-4410xpbzyumvqnNP GALINA HOY .Facility:X5Rsdhr: 11-24-2021 End: 66-60-8145vjiunjyxngQH GALINA HOY .Facility:F9Dxbhp: 11-23-2021 End: 56-25-0694vzvqpkziioWG GALINA HOY .Facility:N2Tyaiz: 11-15-2021 End: 39-51-6563Ubmckbswtw and management of inpatientSBREANNA BERNALWADFacility:H1 Start: 11-11-2021 End: 75-48-1428bkcciqcshiIOEYOI RODRIGUEZ .Facility:G4Bmbnb: 09-30-2021 End: 39-31-8990tebhavmxrwNM NIKO BECKWITH .Facility:P9Xsvuz: 09-13-2021 End: 25-88-2210chotlgmmwgUGZIUW RODRIGUEZ .Facility:H9Pbvgo: 09-12-2017 End: 85-05-1334Frkuune encounterDEFAULT PHYSICIANFacility:[facility] Procedures DateProcedureProcedure DetailPerforming ClinicianAppendix absent (finding)Sharon Lue ArthroscopyKathy Lue Capsulotomy of posterior lens capsuleLauren Mercedes CholecystectomyLauren Mercedes HysterectomyKathy Lue Laboratory test result abnormalLaboratory test result abnormalKathy Lue Left breast structure (body structure)Sharon Lue Comment on above:benign tumorRight breast structure (body structure)Jacinta Mercedes TonsillectomyKathy Lue Total knee replacementLasera Mercedes Urinary bladder structure (body structure)Sharon Lue Plan of Treatment DateCare ActivityDetailAuthorStart: 12-10-2025 End: 10-22-9127Ejljary encounter /20/2026 11:30 AM EDT Office Visit [facility] [address] [place] [id number] Armando Thayer, DO [address] [place] [address] [facility] SWS OBStart: 49-90-6974Exzpeejh identified in Urine by CultureUrine CultureMercy Health St. Joseph Warren Hospitaltart: 32-74-3580Iubly cultureMercy Health St. Joseph Warren Hospitaltart: 00-46-0290Tduurqpah vaccination Influenza Vaccine (#1)[facility] HealthcareStart: 81-40-3239Rtfofskic vaccination INFLUENZA (#1)[facility]: 37-56-1306WNJFF-19 VACCINE (6 - Moderna series)COVID-19 VACCINE (6 - Moderna series)[facility]: 02-21-2022 ADVANCE DIRECTIVE DISCUSSIONADVANCE DIRECTIVE DISCUSSIONMcKitrick Hospitaltart: 44-79-3398YGUSKVDSEZ ASSESSMENTDEPRESSION ASSESSMENTMcKitrick Hospitaltart: 39-35-3755Dwmqdbyxtgtq Vaccine: 65+ Years (2 of 2 - PPSV23 or PCV20)Pneumococcal Vaccine: 65+ Years (2 of 2 - PPSV23 or PCV20)[facility] Center[facility] 11-12[facility]2017 PNEUMOCOCCAL: 65+ (2 - PPSV23 if available, else PCV20)PNEUMOCOCCAL: 65+ (2 - PPSV23 if available, else PCV20)[facility]: 28-48-6581GMNLXEDMQPSB: 65+ (2 - PPSV23 or PCV20)PNEUMOCOCCAL: 65+ (2 - PPSV23 or PCV20)[facility] Start: 23-73-3694YPVQWNJQ VACCINE (2 of 3)SHINGRIX VACCINE (2 of 3)[facility]: 95-48-3425ICSV DENSITYBONE DENSITYMcKitrick Hospitaltart: 04-30-1985 DIABETES SCREENDIABETES SCREENMcKitrick Hospitaltart: 30-68-7346Midhc microalbumin profileDTAP,TDAP,TD (1 - Tdap)[facility] HospitalIGP,rfxAptima HPV all,16/18,45IGP,rfxAptima HPV all,16/18,45 Pathology and Cytology Routine Encounter for Papanicolaou smear of vagina Ordered: 12/06/2023[facility] Work Phone: comment on above:Ordered: 12/06/2023 Immunizations Immunization DateImmunizationNotesCare NddwwtdbEcuqaxhp04-12-1023ptjygq vaccine recombinantLasera Cooleya [facility]06-02-2025tetanus toxoid, reduced diphtheria toxoid, and acellular pertussis vaccine, adsorbedLauren Mercedes [facility]10-14-2024influenza virus vaccine, unspecified formulationLauren Mercedes [facility]09-04-2023influenza virus vaccine, unspecified formulationLauren Mercedes [facility]08-12-2023SARS-CoV-2 (COVID-19) mRNAMUL.ORD!x30125Arpuze Tanna [facility] HospitalComhawthorn center on above:Result Comment: 2024-11-14: ECB8450-11-8040Sjfpbtb Bivalent Booster VaccinationWilliamyrna Thayer DO Work Phone: [facility] CenterComhawthorn center on above:Result Comment: 2024-11-14: LDL6574-37-7890Cixjejbfd, injectable, Madin Wingate Canine Kidney, preservative free, quadrivalentPhillip Mendis DO Work Phone: [facility] HospitalTyqszr09-91-5486yorcqrdqt virus vaccine, unspecified formulationWilliam Flaca DO Work Phone: [facility]04-14-2022SARS-CoV-2 (COVID-19) mRNA-8309 vaccineLauren Mercedes [facility] on above:Result Comment: 2024-11-14: WHF2617-16-8424UODQ-OjU-5 (COVID-19) mRNA-1273 vaccineLauren Mercedes [facility]10-08-2021influenza virus vaccine, unspecified formulationPhillip Mendis DO Work Phone: [facility] HospitalUoqkkj57-98-7536tczfnbfdi, unspecified formulationLasera Cooleya [facility]02-15-2021SARS-CoV-2 (COVID-19) mRNA-1273 vaccineLasera Cooleya [facility]01-18-2021SARS-CoV-2 (COVID-19) mRNA-1271 vaccineLasera Cooleya [facility]10-08-2020influenza virus vaccine, unspecified formulationLasera Long [facility]10-08-2020Seasonal trivalent influenza vaccine, adjuvanted, preservative freePhillip [facility] Centeris DO Work Phone: [facility] HospitalWtvacg70-92-4607geyhlq vaccine, livePhillip [facility]is DO Work Phone: [facility] HospitalMfgkgi13-38-1782bzgvllunktyl conjugate vaccine, 13 valentPhillip [facility] Centeris DO Work Phone: [facility] Payers DatePayer CategoryPayerPolicy [id number] Health [id number] 2005Medicare [id number] 2005Unknown1960Medicare [id number] [id number] 2.16.840.1.708660.3.57[id number] 2.16.840.1.611711.3.57[id number] 2.16.840.1.840717.3.57[id number] 2.16.840.1.108897.3.57[id number] 2.16.840.1.349549.3.579.2.10773-81-4529Vtovuyz5508126 2.16.840.1.172314.3.579.2.59172-77-5099Sisopck8863871 2.16.840.1.098483.3.579.2.76563-48-1645Qcfyfui2434126 2.16.840.1.255402.3.579.2.14446-45-3582Drzxfrs6352569 2.16.840.1.478356.3.579.2.37242-82-0524Unohktj8494433 2.16.840.1.323996.3.579.2.23353-02-6346Bcfsmph4158176 2.16.840.1.906137.3.579.2.29748-96-8342Wnivdkb7869900 2.16.840.1.600163.3.579.2.33922-73-4894Upozeir3937638 2.16.840.1.581779.3.579.2.08404-88-1649Pkgsjez7858063 2.16.840.1.202035.3.579.2.88359-98-5791Fbeygxv8285258 2.16.840.1.694117.3.579.2.34121-92-5141Mbdvhyb5707542 2.16.840.1.840057.3.579.2.20667-98-6435Jaoiije9748699 2.16.840.1.755788.3.579.2.23474-47-9652Gbihsfs8423462 2.16.840.1.158701.3.579.2.46932-70-2066Vckemcs7608911 2.16840.1.644151.3.579.2.03161-65-2244Nfoequu6537294 2.16840.1.925238.3.579.2.88902-50-6889Jpixpnh7788632 2.16840.1.082163.3.579.2.23044-07-6827Zhlltfn1260028 2.16840.1.159955.3.579.2.20275-01-4028Rffzoqa5946502 2.16.840.1.078612.3.579.2.66524-73-2533Ftszlis2794154 2.16840.1.161204.3.579.2.48550-47-8056Noatqvp8959742 2.840.1.054266.3.579.2.66828-41-7297Pihhsvg2323311 2.16.840.1.349063.3.579.2.375690-79-0468Iulebly8566278 2.16.840.1.496550.3.579.2.293419-38-5348Uygduvs7125879 2.16.840.1.330368.3.579.2.130732-34-5272Rjvhsam034036972 2.16.840.1.200611.3.579.2.71251-82-1377Elnwgga682530301 2.16.840.1.061299.3.579.2.57020-27-3410Ptebbcx681736160 2.16.840.1.923224.3.579.2.60645-32-6444Cljhctk772820620 2.16.840.1.730635.3.579.2.09817-54-7431Tmgbudq428830633 2.16.840.1.264209.3.579.2.19805-05-6088Hvwtllt502721129 2.16.840.1.248107.3.579.2.60222-63-3372Zoemmmt63739916 2.16.840.1.222203.3.579.2.72543-81-3910Dcivyxm67999696 2.16.840.1.623344.3.579.2.15845-68-1916Ayooetf94725366 2.16.840.1.998031.3.579.2.52328-24-4601Thpiknz33197456 2.16.840.1.954015.3.579.2.34591-47-3921Svwttzk51848932 2..840.1.196956.3.579.2.32106-82-7675Vfnkjvk34120997 2.16.840.1.859351.3.579.2.613Kixuvjv89705619 2.840.1.854250.3.579.2.531 Social History DateTypeDetailFacilityStart: 05-14-2022 End: 82-04-2954Gkfxyvk smoking status NHISNever smoked tobaccoMedina Hospital Start: 05-14-2022 End: 58-45-5345Mozxgak use and exposureSmokeless tobacco non-userMcKitrick Hospitaltart: 05-14-2022 End: 21-93-0145Bjpucyy intakeLifetime non-drinker (finding)[facility] Start: 87-44-7705Wtb Assigned At BirthNot on fileMcKitrick Hospitaltart: 09-21-2022 End: 57-47-2444Jsuhpwx of Social functionMcKitrick Hospitaltart: 09-21-2022 End: 90-27-7898Xbofrax use panelMedina HospitalAdult Depression Screening Tghrtxzxtt9Gpgbwjotn ClinicHow often to you have a drink containing alcohol? NeverNOMS HealthcareTobacco smoking status NHISUnknown if ever smokedLicking Memorial Hospital Work Phone: Start: 35-47-6318GbuZzlysg (finding)[facility]: 41-28-6598Ghr Assigned At [facility]icexual OrientationExec[facility] Clinical Notes 09-30-2021 to 11-14-2024 Note Date & MlgcEdohKfilweft31-23-8777 Hospital Discharge instructions Patient Education 11/14/2024 16:17:11 [...] You may also have very sensitive muscles thatmake your bladder squeeze too soon. This condition [...] your health care provider. General instructions Take jnaq-peg-lehapxo and prescription medicines only as told by your health care provider. If you were prescribed an antibiotic medicine, take it as told by your health care provider. Do notstop taking the antibiotic even if you start [...] provider. Document Revised: 10/27/2020 Document Reviewed: 10/27/2020 [employer] Patient Education 2023 Platypus Platform. Follow Up Care 10/10/2024 10:34:03 With:Jacinta Long PA-C, GREGG Address: When:Within 3 Month(s) Comments:w/ BLANCA [facility] 09-24-2025 NotePatient Education Obstetrics and Gynecology Overactive Bladder, Adult [...] You may also have very sensitive muscles thatmake your bladder squeeze too soon. This condition [...] health care provider. General instructions ??? Take rhsf-lmv-woyhqdp and prescription medicines only as told by your health care provider. ??? If you were prescribed an antibiotic medicine, take it as told by your health care provider. Donot stop taking the antibiotic even if you start to feel better. ??? Use any implants or pessary as told by your health care provider. ??? If needed, wear pads to absorb urine leakage. ??? Keep a log to track how much and when you drink, and whe (more content not included)...[facility]08-20-2025 Hospital Discharge instructions Patient Education 10/10/2024 10:31:42 [...] You may also have very sensitive muscles thatmake your bladder squeeze too soon. This condition [...] your health care provider. General instructions Take dgku-aur-pndlqas and prescription medicines only as told by your health care provider. If you were prescribed an antibiotic medicine, take it as told by your health care provider. Do notstop taking the antibiotic even if you start [...] provider. Document Revised: 10/27/2020 Document Reviewed: 10/27/2020 [employer] Patient Education 2023 Platypus Platform. 10/10/2024 10:31:41 Kegel Exercises Kegel Exercises Kegel [...] muscles. These are the same muscles you squeezewhen you try to stop the flow of [...] tight lift in your rectal area. If youare a female, you should also feel a [...] provider. Document Revised: 06/18/2021 Document Reviewed: 06/18/2021 [employer] Patient Education 2023 Platypus Platform. 10/10/2024 10:31:39 Hematuria, Adult Hematuria, Adult Hematuria is blood in the urine. Blood may be visible in the urine, or it may be identified with a test. This condition can be caused by infections of the bladder, urethra, kidney, or prostate. Otherpossible causes include: Kidney stones. Cancer of the [...] blood in your urine, even if it ispainless or the blood stops without treatment. Blood in the urine, when it happens and then stops and then happens again, can be a symptom of a very serious condition, including cancer. There is no pain in the initial stages of many urinary cancers. Follow these instructions at home: Medicines Take vort-zya-ytztsim and prescription medicines only as told by your health care provider. If you were prescribed an antibiotic medicine, take it as told by your health care provider. Do notstop taking the antibiotic even if you start to feel better. Eating and drinking Drink enough fluid to keep your urine pale yellow. It is recommended that you drink 3 4 quarts (2.83.8 L) a day. If you have been diagnosed with an infection, drinking cranberry juice in addition tolarge amounts of water is recommended. Avoid caffeine, [...] about any blood in your urine, even ifit is painless or the blood stops without treatment. Take mqjh-qbl-vepqhos and prescription medicines only as told by your health care provider. Drink enough fluid to keep your urine pale yellow. This information is not intended to replace advice given to you by your health care provider. Make sure you discuss any questions you have with your health care provider. Document Revised: 10/08/2020 Document Reviewed: 10/08/2020 [employer] Patient Education 2023 Platypus Platform. Follow Up Care 10/04/2024 10:42:48 With:Yogi MEANS, Sharon Patel, URL, URO Address: [address], [place] [phone] When: Unknown Comments:1-2 mos w/ PVR (new med) [facility] Evelyn 08-20-2025 NoteUrology Office/Clinic Note Chief Complaint referral utis, retention HPI Staff Referral from Dr. Palmer for urinary retention. Urine culture @ [facility] 09/21/24 - negative for growth GEORGINA @ [facility] 09/24/24 DR Palmer did some tests and thought she was [...] yo F new pt referred by Dr. Palmer for urinary retention, here with [facility] sxs. [...] retention, and exacerb (more content not included)... [facility] HospitalComment on above:Result Comment: Electronically Signed By: Sharon Calix MD\.br\Date and Time Signed: 10/10/24 11:06 EDT\.br\Electronically Co-Signed By: Holly Canales\.br\Date and Time Co-Signed: 10/10/24 10:32 [id number] NotePatient Education Obstetrics and Gynecology Overactive Bladder, Adult [...] You may also have very sensitive muscles thatmake your bladder squeeze too soon. This condition [...] health care provider. General instructions ??? Take greh-ops-tvmjten and prescription medicines only as told by your health care provider. ??? If you were prescribed an antibiotic medicine, take it as told by your health care provider. Donot stop taking the antibiotic even if you start to feel better. ??? Use any implants or pessary as told by your health care provider. ??? If needed, wear pads to absorb urine leakage. ??? Keep a log to track how much and when you drink, and whe (more content not included)...[facility]10-15-2024 History of Present illness Narrative* Marlena Person MA - 12/06/2023 11:30 AM EDT Images from the original note were not included. Armando Thayer, DO Obstetrics and Gynecology Alexa Delgado 1940 12/06/23 [id number] Yearly Wellness Exam Chief Complaint Patient presents with Gynecologic Exam Medicare yearly. LMP: SUNIL BSO 1972 HRT: None Last pap 12-02-21 neg. Last mammogram 12-05-23 [facility] ordered by PCP. Denies breast or [...] Oil) 1000 MG capsule as directed Orally Gilolgxbogz-Pybeglkfzlx-CCP (Triple Flex) 500-400-125 MG tablet 1 tablet with meals Orally twice daily for 30 days HYDROcodone-acetaminophen ([place]) 5-325 MG tablet 1 tablet as needed [...] Past Surgical History: Procedure Laterality Date APPENDECTOMY 196 BLADDER NECK RECONSTRUCTION 1983 with Excision of Ovary BLADDER SUSPENSION 1983 BREAST BIOPSY Left 1964 BREAST LUMPECTOMY Right 1990 BUNIONECTOMY Right 02/2005 CATARACT EXTRACTION 2012 w/ Lens Implantation CHOLECYSTECTOMY 09/15/2012 COLONOSCOPY 2019 Benign D&C FIRST TRIMESTER / TX INCOMPLETE / MISSED / SEPTIC / INDUCED x3 EXCISION BENIGN SKIN LESION TRUNK / ARM / LEG 2010 excision of lesion on leg ( benign) DC CAPSULOTOMY POSTERIOR CAPSULAR RELEASE KNEE 05/15/2013 Yttrium aluminum garnet (YAG) capsulotomies DC KNEE SCOPE,CLEAN/DRAIN 10/1998 Dr. De Leon DC LAMNOTMY INCL W/DCMPRSN NRV ROOT 1 INTRSPC CERVC 12/20/2006 L4-5 Hemilaminectomy / Discectomy - Dr. Arshad SALPINGOOPHORECTOMY Left 1981 SKIN SURGERY 12/13/2008 excision neoplasm LT leg TONSILLECTOMY 1958 TOTAL ABDOMINAL HYSTERECTOMY 1973 SUNIL RSO TOTAL KNEE ARTHROPLASTY Right 09/22/2017 Dr. de leon Past Medical History: Diagnosis Date Angina pectoris ([facility]) Angina pectoris ([facility]) 11/2019 hx of hospitalization Melchor's palsy 1960 Breast nodule Cataract 2012 COVID-19 10/2021 hx of hospitalization History of medical problems 1982 MMK LSO HTN (hypertension) ([facility]) Hx of completed stroke hx of stroke at [id number]/ TIA 1984 Kidney disease remission Kidney disease hx of hospitalization Lumbar disc herniation 2007 L4 L5 Miscarriage x3 Pelvic fracture ([facility]) 2018 hx of hospitalization x4 Status post laser cataract surgery of left eye 2014 Stroke ([facility]) 1973 at childbirth TIA (transient ischemic [...] palpable bilaterally, normal nipples bilaterally - everted - fatty replaced - dense - well supported- axilla negative- pendulous ABDOMEN: soft, nontender, nondistended, no masses palpable. BACK: no costovertebral angle tenderness, no obvious scoliosis/kyphosis. 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 The patient is to return in 1 year or as needed 2. Encounter for Papanicolaou smear of vagina Z12.72 IGP,rfxAptima HPV all,16/18,45 Thinprep collected. Will notify patient if results are abnormal. 3. Breast cancer screening by mammogram Z12.31 Ordered by PCP Entered by Marlena Person MA acting as scribe for Dr. Armando Thayer. Signature Marlena Person MA Date 12/06/23 . Time 11:56 AM . The documentation recorded by the scribe accurately reflectsthe service(s) I personally performed and the decisions I made. Signature Vasu Thayer D.O. Date 12/06/23 Time 5:00PM. documented in this encounterSaint John's Breech Regional Medical CenterQcfwthbwgm17-90-4069 NoteHNO ID: [id number] Author: Carolyn Vanegas MD Service: ? Author Type: Physician Type: Progress Notes Filed: 09/21/2022 1:20 PM Note Text: SPINE SURGERY OUTPATIENT CONSULT SERVICE DATE: 09/21/2022 PCP: Galina Palmer MD REFERRING PROVIDER: Galina Palmer MD Consult requested for an opinion regarding [...] Physical Health Percentile 1 (more content not included)...[facility]08-01-2023 Instructions* Patient Instructions* Carolyn Vanegas MD - 09/21/2022 1:19 PM EDT History, exam and imaging all reviewed. The patient has progressive and refractory symptoms relatedtot he scoliosis and stenosis. Discussed the findings and the natural history, Unfortunately, surgical intervention is not a good option given the severe scoliosis and the chance of making that worsewith any intervention. Offered the chronic pain program and they will consider. Alexa Delgado is not a candidate for surgery at this time. documented in this encounterMedina Hospital08-01-2023 History of Present illness Narrative* Carolyn Vanegas MD - 09/21/2022 12:43 PM EDT SPINE SURGERY OUTPATIENT CONSULT SERVICE DATE: 09/21/2022 PCP: Galina Palmer MD REFERRING PROVIDER: Galina Palmer MD Consult requested for an opinion regarding [...] mg by mouth once daily. 1 tablet dailyin the AM on an empty stomach Treat [...] tablet by mouth 3x daily As needed forchest pain cyclobenzaprine (FLEXERIL) 5 mg tablet Take [...] The patient has progressive and refractory symptoms relatedtot he scoliosis and stenosis. Discussed the findings and the natural history, Unfortunately, surgical intervention is not a good option given the severe scoliosis and the chance of making that worsewith any intervention. Offered the chronic pain program [...] Level: 4 - Moderate documented in this encounterMedina Hospital07-06-2023 NoteHNO ID: [id number] Author: Kassandra Alves PA-C Service: ? Author Type: Physician Floor Cleaner Type: Progress Notes Filed: 08/26/2022 11:52 AM Note Text: Per Triage: Alexa Delgado is a 82 year old female that requests evaluation of spine. Per review, they have symptoms of lower back pain. Numbness/tingling right leg. Difficulty walking. Weakness Request: 1st available Referring provider: Galina Palmer MD Patient out of state: no 2nd opinion: no Prior spine surgery: yes 2006 [facility] Address: [address] [place] [address] CMT: PT Injections Tylenol Hydrocodone Studies (Reports [...] they can be reviewed during the appt [facility] History of Present illness Narrative* Kassandra Alves PA-C - 08/26/2022 11:45 AM EDT Per Triage: Alexa Delgado is a 82 year old female that requests evaluation of spine. Per review, they have symptoms of lower back pain. Numbness/tingling right leg. Difficulty walking. Weakness Request: 1st available Referring provider: Galina Palmer MD Patient out of state: no 2nd opinion: no Prior spine surgery: yes 2006 [facility] Address: [address] [place], [place] [id number] CMT: PT Injections Tylenol Hydrocodone Studies (Reports [...] reviewed during the appt Kassandra Alves PA-C * Micheal Bowman - 08/19/2022 4:06 PM EDT Patient name: Alexa Delgado Are you being referred by a Center for Spine Health Provider or Pain Management Provider at [facility]? No If answer is YES please schedule directly with surgeon, triage does not need to be completed. Is this a self-referral No If not, who is the Referring Provider Galina Palmer MD Is this a 2nd opinion? No Were you offered surgery? No MRI/CT/myelogram within 12 months? Yes If NO , please refer to medical spine or PCP to complete above imaging, triage does not need to be completed If YES, please ask for the name/address of the facility where the MRI/CT/myelogram was completed: [facility] Address: [address] [place] [address] MRI/CT/myelogram viewable in Epic: No If not, please provide [phone] to fax in imaging reports for review. Also, please inform patient to hand carry imaging disc to appointment. XR (spine) within 12 months: No If YES, please ask for the name/address of the facility where the XR was completed: Dr. Willams's patients: Have you had previous EMG/Nerve Conduction Study, Ultrasound, or MRI for thesesame symptoms? If YES, please ask for the [...] and/or physical therapy was completed PT Injection [facility] Address: [address] [place] [address] Have you tried any other kinds of [...] of where the surgery was completed: 2006 [facility] Address: [address] [place] [address] Additional Comments documented in this encounterMedina Hospital06-29-2023 NoteHNO ID: [id number] Author: Micheal Bowman Service: ? Author Type: ? Type: Progress Notes Filed: 08/26/2022 11:52 AM Note Text: Patient name: Alexa Delgado Are you being referred by a Center for Sp[facility] Provider or Pain Management Provider at [facility]? No If answer is YES please schedule directly with surgeon, triage does not need to be completed. Is this a self-referral No If not, who is the Referring Provider Galina Palmer MD Is this a 2nd opinion? No Were you offered surgery? No MRI/CT/myelogram within 12 months? Yes If NO , please refer to medical spine or PCP to complete above imaging, triage does not need to be completed If YES,? please ask for the name/address of the facility where the MRI/CT/myelogram was completed: [facility] Address: [address] [place] [address] MRI/CT/myelogram viewable in Epic: No If not, please provide [phone] to fax in imaging reports for review. [...] physical therapy was completed PT Injection [facility] Address: [address] [place] [address] Have you tried any other kinds of [...] where the surgery was completed: 2006 [facility] Address: [address] [place] [address] Additional Comments [place] [address]-26-2023 NotePROCEDURE: XR HIP RT 2 3V W PELVIS [...] bilateral hip osteoarthritis Electronically authenticated by: HERMES SUAREZ Date: 2022-07-16 11:28[facility]03-24-2023 NoteHNO ID: [id number] Author: Marty Dozier, DO Service: ? Author Type: Physician Type: Progress Notes Filed: 05/15/2022 10:02 PM Note Text: [facility] - Medical Spine Initial [...] Pain Level: 6 Pain Location: Back Description: Aching;Burning;Sharp;Shooting;Sore;Stabbing;Throbbing;Tingling Duration Units: Months Frequency: Continuous Intervention/Comfort measure: Medication;Reposition;Relaxation;Exercise;Heat;Pillow support;Positioning;Support surface Comments: Spinal Injection, RF Ablation Pain Radiation: As above Aggravating Factors: Prolonged standing Transfers Turning/shifting in bed Alleviating Factors: Medications Pain Ratio: R>L low back Current Treatment: Medications Pocatello 5-325 mg BID - helps Diclofenac 75 [...] but still has pain -01/28/22 Noemi Sequeira [employer]: BL Lumbar erector spinae TPI (0.125% Marcaine, [...] ongoing as of 04/17/21 -03/08/21 Noemi Sequeira [employer]PER[employer]: Left rhomboid TPI (0.125% Marcaine, 40 mg Kenalog) -02/03/21 LESI - moderate relief for 4 days Prior spine surgery: -2006 L4-5 Discectomy Previously treated by: -[facility], previously Dr. Niko [...] today. She has an evaluation at the [facility] tomorrow at the [facility]. RECOMMENDATIONS: We will see the patient back in the office after she undergoes evaluation there to discuss her treatment plan thereafter. We will see the patient back in the office in approximately four weeks' time or sooner if needed. PMH: Lumbar scoliosis Depression on Negrita (more content not included)...[facility] 05-14-2022 History of Present illness Narrative* Marty Dozier, - 05/14/2022 3:15 PM EDT Images from the original note were not included. [facility] - Medical Spine Initial Exam SUBJECTIVE HISTORY OF PRESENT ILLNESS: Alexa Delgado is a 82 year old female who presents with a chief complaint of low back pain. Accompanied by her today. Recently treated in outside ED for severe right low back pain. CT abd/pelvis was negative for acutefractures. Was treated with fentanyl, prednisone, muscle relaxant [...] Pain Level: 6 Pain Location: Back Description: Aching;Burning;Sharp;Shooting;Sore;Stabbing;Throbbing;Tingling Duration Units: Months Frequency: Continuous Intervention/Comfort measure: Medication;Reposition;Relaxation;Exercise;Heat;Pillow support;Position ing;Support surface Comments: Spinal Injection, RF Ablation Pain Radiation: As above Aggravating Factors: Prolonged standing Transfers Turning/shifting in bed Alleviating Factors: Medications Pain Ratio: R>L low back Current Treatment: Medications Pocatello 5-325 mg BID - helps Diclofenac 75 [...] but still has pain -01/28/22 Noemi Sequeira [employer]: BL Lumbar erector spinae TPI (0.125% Marcaine, 40 mg Kenalog, divided into3 locations) - helped for 1 day -01/12/22: L2-3 ILESI (Depomedrol 120 mg, total volume 10 cc) - 75% relief x 2 days -May 2021 Cervical RFA - Upon 09/30/21 f/u Pt reported significant relief, but still achiness withextensive lateral rotation -06/02/21: Right C5, C6 C7 C8 MB RFA (80 degrees x 90 seconds) (0.125% Marcaine, Dexamethasone 4 mg, 0.25 cc into each site) -05/26/21: Left C5, C6 C7 C8 MB RFA (80 degrees x 90 seconds) (0.125% Marcaine, Dexamethasone 4 mg,0.25 cc into each site) - Pt reported improvement of LUE radicular pain from 07/31 to 03/02 -04/21/21: BL C5, C6, C7, C8 MBB (0.125% Marcaine, Dexamethasone 4 mg) 0.25 cc per MB -03/17/21: BL C5, C6, C7, C8 MBB (0.125% Marcaine, Dexamethasone 4 mg) 0.25 cc per MB - 95% relief,able to do more activity including cooking/cleaning/ADLs - ongoing as of 04/17/21 -03/08/21 Noemi Sequeira [employer]PER[employer]: Left rhomboid TPI (0.125% Marcaine, 40 mg Kenalog) -02/03/21 LESI - moderate relief for 4 days Prior spine surgery: -2006 L4-5 Discectomy Previously treated by: -[facility], previously Dr. Niko [...] today. She has an evaluation at the [facility] tomorrow at the [facility] Center. RECOMMENDATIONS: We will see the patient back in the office after she undergoes evaluation there todiscuss her treatment plan thereafter. We will see [...] mg by mouth once daily. 1 tablet dailyin the AM on an empty stomach Treat [...] tablet by mouth 3x daily As needed forchest pain cyclobenzaprine (FLEXERIL) 5 mg tablet Take [...] 04/04/22 CT abd/pelvis with IV contrast, [facility], report: Abdominal wall: Old healed left pelvis fractures. Degenerative changes and scoliosis of the lumbar spine. IMPRESSION: No acute abdominal pathology. No acute inflammatory process. No obstructing urinary tract stone. No evidence for bowel obstruction. 11/15/21 XR abd, [facility], report: No acute osseous abnormality. There is moderate dextrocurvature of the lumbar spine. 05/08/2021 XR right hip/pelvis, [facility], report: Rotatory dextro scoliosis of the [...] She continues to have pain in right muchworse than left lumbosacral back. Reports intermittent pain [...] pain with provocative maneuvers, but may be non- specific given pain with general movement of lumbosacral/pelvic region. Pain does not localize to groin and hip joints appear to move well so low suspicion forhip involvement. There is no advanced imaging of [...] chronicity of pain, and comorbidities, she is notlikely a viable surgical candidate. If she does [...] 2022 TIME: 3:15 PM [facility] NoteCONSULTATION CONSULTATION DATE: 05/13/2022 TO: Dr. Palmer CHIEF COMPLAINT: Includes right sided hip pain, gluteal pain. HISTORY: She reports the pain as being 5-7/10 pain, burning in character with a sharp component, increased with activity such as standing, walking, performing transitioning maneuvers. She feels most comfortable in the semi-recumbent position. MEDICATION: Current medications include Flexeril 5 mg at h.s., gabapentin 200 mg at h.s., diclofenac 75 mg b.i.d., Pocatello 5 mg b.i.d. EXAM: Notable for the [...] today. She has an evaluation at the [facility] tomorrow at the Sp[facility] Center. RECOMMENDATIONS: We will see the patient back in the office after she undergoes evaluation there to discuss her treatment plan thereafter. We will see the patient back in the office in approximately four weeks' time or sooner if needed.[facility] [id number] NoteCONSULTATION CONSULTATION DATE: 04/06/2022 CHIEF COMPLAINT: Low back [...] to kidney dysfunction also. The patient takes Pocatello, however, is very controlled and limits it to the point of detriment. Education was done. The patient was instructed to take the Pocatello to a b.i.d. to t.i.d. basis. The [...] b.i.d. basis. The patient may increase the Pocatello to 5/325 t.i.d. We will schedule the [...] on prior to the procedure. CC: Galina Palmer M.D.[facility] [id number] NoteCONSULTATION CONSULTATION DATE: 03/11/2022 HISTORY OF PRESENT ILLNESS: [...] gave improvement for 24 hours. Medications include Pocatello 5/325 b.i.d., diclofenac 75 mg b.i.d., citalopram [...] back pain. PLAN: We will refill her Pocatello 5/325 b.i.d. We will prescribe her Buderer cream with gabapentin, ketorolac and prilocaine/lidocaine to be placed over her right knee. We will trial Requip 0.25 mg q.h.s. We will see the patient in the clinic in three months' time unless otherwise indicated. Patient agrees with the plan.[facility] [id number] NoteCONSULTATION CONSULTATION DATE: 01/28/2022 HISTORY OF PRESENT ILLNESS: [...] daily which decreases her pain. Medications include Pocatello 5/325 b.i.d., Flexeril 5 mg b.i.d., diclofenac [...] does consent to. We will refill the Pocatello 5/325 b.i.d. We will pre-authorize for a right genicular nerve block under fluoroscopy. Patient will follow up in the clinic thereafter.[facility] [id number] NoteCONSULTATION PROCEDURE DATE: 01/28/2022 PREOPERATIVE DIAGNOSIS: Bilateral erector [...] She will be followed up in the office.[facility] [id number] Note CONSULTATION CONSULTATION DATE: 12/31/2021 HISTORY OF [...] Current medications include diclofenac 75 mg b.i.d., Pocatello 5/325 b.i.d., citalopram, Flexeril and multivitamin regimen. The patient does state that she breaks her Pocatello in half and the most she takes [...] of care and would like to move forward.[facility] [id number] NoteCONSULTATION CONSULTATION DATE: 09/30/2021 This is a very [id number] female accompanied by her returning to the [...] Current medications include diclofenac 50 mg b.i.d., Pocatello 5/325 b. i.d. and Tylenol. She does [...] at 25 mg q.h.s. Refill for her Pocatello 5/325 b.i.d. will be sent as well. The patient is to continue with her vitamin regimen which she is currently compliant with, as well as heat application and pool exercises. The patient will be followed up in the office in three months' time unless otherwise indicated. The patient agrees with the plan of care.[facility] Evaluation + Plan note Future Appointments Appointment Date:11/14/2024 03:00:00 PM Scheduled Provider:Jacinta Long PA-C Location:[facility] Appointment Type:URO Office Visit [facility] evaluation + Plan note Future Appointments Appointment Date:02/26/2025 03:10:00 PM Scheduled Provider:Jacinta Long PA-C Location:[facility] Appointment Type:URO Office Visit [facility] evaluation note* Diagnosis Chronic bilateral low back pain with right-sided sciatica- Primary Back pain, lumbosacral Lumbago Chronic sacroiliac joint pain Disorders of sacrum Lumbar spondylosis Lumbosacral spondylosis without myelopathy Scoliosis of lumbar spine, unspecified scoliosis type [facility] Spinal stenosis, lumbar region with neurogenic claudication- Primary Spondylolisthesis, lumbar region Other idiopathic scoliosis, lumbar region [facility]* Diagnosis Obesity, Class I, BMI 30-34.9- Primary Obesity, unspecified Spinal stenosis, lumbar region with neurogenic claudication [facility]* Diagnosis Encounter for gynecological examination without abnormal finding Encounter for Papanicolaou smear of vagina Breast cancer screening by mammogram documented [facility] noteNo assessment information availableLicking Memorial Hospital Work Phone: Hospital course Narrative No data available for this section [facility] progress note No data available for this section [facility] reason for referral (narrative)No reason for referral information availableLicking Memorial Hospital Work Phone: Summary Purpose Family History No [...] Directives No October 10:43am Reason for Referral SpecialtyDiagnoses / ProceduresReferred By ContactReferred To [facility] Diagnoses Spinal stenosis, lumbar region with neurogenic claudication Procedures CONSULT TO [facility] OFFICE/OUTPATIENT [facility] 60-74 MINUTES Carolyn Vanegas MD [address] [place] [address] Referral IDStatusReasonStart DateExpiration DateVisits RequestedVisits [id number] Review PCP Requested Referral / Additional Source Comments INFORMATION SOURCE (unrecogn ized section and content) DATE CREATED AUTHOR 09/13/2017 [facility] DATE CREATED AUTHOR AUTHOR'S ORGANIZ ATION 12/13/2020 [facility] DATE CREATED AUTHOR AUTHOR'S ORGANIZ ATION 07/30/2022 [facility] DATE CREATED AUTHOR AUTHOR'S ORGANIZ ATION 09/22/2022 [facility] DATE CREATED AUTHOR AUTHOR'S ORGANIZ ATION 12/08/2023 [facility] DATE CREATED AUTHOR AUTHOR'S ORGANIZ ATION 10/10/2024 [facility] DATE CREATED AUTHOR AUTHOR'S ORGANIZ ATION 10/13/2024 [facility] DATE CREATED AUTHOR AUTHOR'S ORGANIZ ATION 11/16/2024 [facility] Source Comments (unrecognize d section and content) In the event this informatio n is protected by the Federal Confidentiality of Alcohol and Drug Abuse Patient Records regulations: The Federal rules restrict any use of the information to criminally investigate or prosecute any alcohol or drug abuse patient.[facility] HospitalIn the event this information is protected by the Federal Confidentiality of Alcohol and Drug Abuse Patient Records regulations: The Federal rules restrict any use of the information to criminally investigate or prosecute any alcohol or drug abuse patient.[facility] HospitalIn the event this information is protected by the Federal Confidentiality of Alcohol and Drug Abuse Patient Records regulations: The Federal rules restrict any use of the information to criminally investigate or prosecute any alcohol or drug abuse patient.[facility] Reason for Visit (unrecogniz ed section and content) ReasonCommentsNew Patient EvaluationLow Back PainReasonCommentsNew PatientReason CommentsGynecologic ExamMedicare yearly.LMP: SUNIL BSO 1973HRT: NoneLast pap 12-02-21 neg.Last mammogram 12-05-23 [facility] ordered by PCP.Denies breast or urinary concerns.bowel concernSome rectal bleeding with bowel movements. Denies difficulty having a bowel movement. Care Teams (unrecognized sec tion and content) Team MemberRelationshipSpecialtyStart [facility] Galina Palmer MD [address] [place] [address] PCP - [facility] Medicine05/14/22 Colette De Leon Jr., DO [address] [place] [address] ReferringOrthopedics05/03/22 Lakshmipathy, Narendranath [address] [phone] Pain Management05/14/22 Colette De Leon Jr., DO [address] [place] [address] Orthopedic05/14/22Team MemberRelationshipSpecialtyStart [facility] Galina Palmer MD [address] [place] [address] PCP - [facility] Medicine05/14/22 Colette De Leon Jr., DO [address] [facility] [address] [place] [address] ReferringOrthopedics05/03/22 Lakshmipathy, Narendranath [address] [phone] Pain Management05/14/22 Colette De Leon Jr., DO [address] [place] [address] Orthopedic05/14/22 Galina Palmer MD [address] [place] [address] ReferringFamily Medicine08/11/22Team MemberRelationshipSpecialtyStart End Galina Palmer MD [address] [place] [address] PCP - GeneralFamily Medicine05/14/22 Colette De Leon Jr., DO [address] [facility] [address] [place] [address] ReferringOrthopedics05/03/22 ShermiPorsha santillan [address] [phone] Pain Management05/14/22 Colette De Leon Jr., DO [address] [facility] [address] [place] [address] Orthopedic05/14/22 Galina Palmer MD [address] [place] [address] ReferringFami Medicine08/11/22Team MemberRelationshipSpecialtyStart DateEnd Date Galina Palmer MD [address] [place] [address] PCP - GeneralFamily Medicine08/02/22 Team Status: Inactive Member Role Status Dates Galina Palmer MD Attending Provider Active Sta rt: September [...] BE BASED ON THE PRIMARY CLINICAL RECORDS. [facility] provides no warranty or guarantee of the accuracy or completeness of information in this document.
--- NOTE | 2024-12-11 14:35 | PM.WCHP ---
Wound Care H&P: HPI History of Present Illness Narrative: Mrs. Delgado is a pleasant 84-year-old female with history of previous stroke with left-sided hemiparesis who presents for routine toenail care. She denies symptoms of claudication. She states her toenails are painful when elongated but pain is relieved when the toenails are trimmed. She is unable to reach her toes and does not have the dexterity to trim them due to her previous stroke. PFSH PFSH Medical History Chest pain, rule out acute myocardial infarction ?R07.9 - Chest pain, unspecified (ICD-10) CAD (coronary artery disease) ?I25.10 - Atherosclerotic heart disease of [place] coronary artery without angina pectoris (ICD-10) Hypothyroid ?E03.9 - Hypothyroidism, unspecified (ICD-10) Hypertension ?I10 - Essential (primary) hypertension (ICD-10) Pelvic fracture ?S32.9XXA - Fracture of unspecified parts of lumbosacral spine and pelvis, initial encounter for closed fracture (ICD-10) TIA (transient ischemic attack) ?G45.9 - Transient cerebral ischemic attack, unspecified (ICD-10) Closed fracture of coccyx ?S32.2XXA - Fracture of coccyx, initial encounter for closed fracture (ICD-10) Osteoarthritis ?M19.90 - Unspecified osteoarthritis, unspecified site (ICD-10) H/O pyelonephritis ?Z87.448 - Personal history of other diseases of urinary system (ICD-10) Syncope ?R55 - Syncope and collapse (ICD-10) Generalized weakness ?R53.1 - Weakness (ICD-10) Dizziness ?R42 - Dizziness and giddiness (ICD-10) Surgical History Pain management ?R52 - Pain, unspecified (ICD-10) H/O bladder repair surgery ?Z98.890 - Other specified postprocedural states (ICD-10) H/O breast surgery ?Z98.890 - Other specified postprocedural states (ICD-10) H/O knee surgery ?Z98.890 - Other specified postprocedural states (ICD-10) H/O foot surgery ?Z98.890 - Other specified postprocedural states (ICD-10) History of right knee joint replacement ?Z96.651 - Presence of right artificial knee joint (ICD-10) History of YAG laser capsulotomy of lens ?Z98.49 - Cataract extraction status, unspecified eye (ICD-10) Hx laparoscopic cholecystectomy ?Z90.49 - Acquired absence of other specified parts of digestive tract (ICD-10) H/O: hysterectomy ?Z90.710 - Acquired absence of both cervix and uterus (ICD-10) History of arthroscopic knee surgery ?Z98.890 - Other specified postprocedural states (ICD-10) H/O discectomy ?Z98.890 - Other specified postprocedural states (ICD-10) H/O dilation and curettage ?Z98.890 - Other specified postprocedural states (ICD-10) History of appendectomy ?Z90.49 - Acquired absence of other specified parts of digestive tract (ICD-10) Hx of tonsillectomy ?Z90.89 - Acquired absence of other organs (ICD-10) Family History Other Family history of CHF (congestive heart failure) Social History Within the past year, how often did you have a drink containing alcohol: never Score interpretation: A score less than 3 is consistent with normal alcohol consumption. Smoking status: Never smoker Non-prescribed substance use: denies use Previous occupational history: Retired, , lives at home Highest level of school completed/degree received: high school graduate Are you now , , , , never or living with a partner: In a typical week, how many times do you talk on the telephone with family, friends, or neighbors: once per week How often do you get together with friends or relatives: once per week How often do you attend alevism or christian services: 1-3 times per year Little interest or pleasure in doing things: not at all Feeling down, depressed, or hopeless: not at all Feel stressed/tense/nervous/anxious/difficulty sleeping: not at all Gender Identity: female Meds Home Medications and Allergies Home Medications ?Medication ?Instructions ?Recorded ?Confirmed ?Type capsaicin 0.025 % topical patch 1 patch topical DAILY pain 07/26/22 10/01/24 History ([facility]) citalopram 10 mg tablet 10 mg PO DAILY 07/26/22 10/01/24 History fexofenadine 180 mg tablet 180 mg PO DAILY 07/26/22 10/01/24 History ([facility]) flaxseed oil 1,000 mg capsule 1,000 mg PO DAILY 07/26/22 10/01/24 History glucosamine 750 lo-beucuf-bpz 2-C 1 tab PO DAILY 07/26/22 10/01/24 History 30 mg-D3 1,000 unit-maida 1 mg tablet (Sdviulsthuv-Ffhsyprpoew-KMQ + vitD) isosorbide mononitrate 30 mg 30 mg PO DAILY 07/26/22 10/01/24 History tablet,extended release 24 hr liothyronine 25 mcg tablet 25 mcg PO DAILY 07/26/22 10/01/24 History (Cytomel) melatonin 3 mg capsule 3 mg PO DAILY 07/26/22 10/01/24 History metoprolol succinate 50 mg 50 mg PO BID 07/26/22 10/01/24 History tablet,extended release 24 hr multivitamin 1 tab PO DAILY 07/26/22 10/01/24 History nitroglycerin 0.4 mg sublingual 0.4 mg sublingual Q5M PRN chest 07/26/22 10/01/24 History tablet pain cyclobenzaprine 10 mg tablet 10 mg PO BEDTIME 04/20/23 10/01/24 History ferrous sulfate 325 mg (65 mg 325 mg PO BID 09/02/23 10/01/24 History iron) tablet diclofenac sodium 75 mg 75 mg PO BID 10/13/23 10/01/24 History tablet,delayed release levothyroxine 75 mcg tablet 75 mcg PO QAM 10/13/23 10/01/24 History pantoprazole 40 mg tablet,delayed 40 mg PO DAILY #30 tabs 10/13/23 10/01/24 Rx release (Protonix) calcium 600 mg (as carbonate)-vit 1 tab PO BID 11/04/23 07/23/24 History D3 20 mcg (800 unit) chewable tablet (Caltrate plus D) hydrocodone 5 mg-acetaminophen 325 1 tab PO TID PRN pain #90 tabs 01/05/24 10/01/24 Rx mg tablet gabapentin 100 mg capsule 100 mg PO BID #60 caps 09/19/24 10/01/24 Rx gabapentin 100 mg capsule 100 mg PO BID #60 caps 10/11/24 Rx hydrocodone 5 mg-acetaminophen 325 1 tab PO TID PRN pain #90 tabs 10/11/24 Rx mg tablet gabapentin 100 mg capsule 100 mg PO BID #60 caps 11/21/24 Rx hydrocodone 5 mg-acetaminophen 325 1 tab PO TID PRN pain #90 tabs 11/27/24 Rx mg tablet Allergies Allergy/AdvReac Type Severity Reaction Status Date / Time Penicillins Allergy Severe Hives Verified 10/01/24 11:21 codeine AdvReac Intermediate Dizziness Verified 10/01/24 11:21 fluconazole (From Diflucan) AdvReac Intermediate Hives Verified 10/01/24 11:21 quinine (From Quinamm) AdvReac Mild Headache Verified 10/01/24 11:21 pregabalin (From Lyrica) AdvReac Dizziness Verified 10/01/24 11:21 propoxyphene (From Darvon) AdvReac Headache Verified 10/01/24 11:21 decongest multi-action AdvReac Mild Headache Uncoded 10/01/24 11:21 Exam Narrative: Exam Narrative: Dermatologic: Fungal mycotic toenails of toes 2 through 5 on each foot. Skin is shiny and atrophic. Skin is diffusely dry and thin. Hallux toenails are absent bilaterally. Neurologic: Decreased tone on the left. Protective sensation is intact. Vascular: Nonpalpable PT pulses bilaterally. DP pulses are 1/4 bilaterally. Varicosities are present bilaterally. Feet are cool to the touch. Digital hair is absent bilaterally. Musculoskeletal: No gross deformity. Strength and range of motion is within normal limits. Assessment and Plan Assessment and Plan (1) Disorder of nail due to another disorder: (2) Diminished pulses in lower extremity: (3) Gait instability: (4) Tinea unguium: (5) PAD (peripheral artery disease): (6) Ambulatory dysfunction: (7) Pain around toenail: Plan Routine nail care performed. Follow-up in 3 months. Acute Procedures Podiatry Nail Debridement Class B Findings Absent posterior tibial pulse: bilateral Advanced trophic changes as evidenced by any three of the following: decreased hair growth, nail changes (thickening) and skin texture (thin or shiny) Class C Findings Claudication: No Temperature changes: Yes Edema: Yes Nail debridement paresthesia (abnormal spontaneous sensations in the feet): No Burning: No Qualifies If: Qualifiers If:: A patient qualifies for nail debridement if they have: 1 class A finding (Q7) 2 class B findings (Q8) OR 1 class B & 2 class C findings in addition to a primary condition (Q9) Nail Procedure Nail Procedure Time out: Yes Nail procedure: other (Toenail debridement) Number of affected nails: 8 Location (toes): left and right Procedure successful: Yes Patient tolerated procedure: well and no complications Additional comments: Toenails 2 through 5 on each foot were sharply debrided with nail nippers without incident. Hallux toenails have been removed previously.
== END 2024-12-11 14:29 | disposition home or self-care (01) ==
LOC: WC 14:28
PROVIDERS: PCP Family Medicine; Visit Provider Physician Assistant
DX: L60.8 Other nail disorders (principal); R09.89 Other specified symptoms and signs involving the circulatory and respiratory systems; R26.89 Other abnormalities of gait and mobility; B35.1 Tinea unguium; I73.9 Peripheral vascular disease, unspecified; M79.675 Pain in left toe(s); M79.674 Pain in right toe(s)
CPT/HCPCS: 11721

== ENCOUNTER 2025-01-09 13:09 | Outpatient (OUT) | payer MEDICARE, SELFPAY ==
--- OUTSIDE RECORDS SUMMARY | 2025-01-09 13:13 | XMS_ITS | Patient Health Record ---
Author Organization [facility] [place] Address [address] [place] [address] Care Team Providers Care Butcher'S Assistant Name Role Phone Bang Rogers Primary Care Provider Judi Wiseman Unavailable [phone] Allergies Allergen (clinical drug ingredient) Drug/Non Drug Allergy documented on EMR Reaction Allergy Type Onset Date Status DarvonUnknownDrug AllergyActivefluconazoleDiflucanUnknownDrug AllergyActive pregabalinLyricaUnknownDrug AllergyActivecodeineCodeineUnknownDrug AllergyActive PenicillinUnknownDrug AllergyActivequinineQuinineUnknownDrug AllergyActive Results Component Value Reference Range Notes CBC AUTO DIFF Reviewed date:03/23/2024 09:20:24 AM Interpretation: Performing Lab: Notes/Report: [facility] , White Blood Count 4.3 4.0-11.0 10 3/uL Red Blood Count3.744.20-5.40 10 6/vAFgiwkfnmdy46.812.0-16.0 g/uNKytrvkwpcf22.8 36.0-48.0 %Mean Corpuscular Tyxrdi00.781.0-99.0 fLMean Corpuscular Hemoglobin 31.626.7-34.0 pgMean Corpuscular HGB Conc33.029.9-35.2 g/dLRed Cell Distribution Width13.111.0-15.0 %Platelet Nqnto889877-202 10 3/uLMean Platelet Volume9.29.5- 13.5 fLPerforming Lab:see noteML - [facility] LBPROF 14(COMP METB) Reviewed date:03/23/2024 09:20:24 AM Interpretation: Performing Lab: Notes/Report: [facility] ,Xktqje489450-416 mmol/LPotassium2.83.5-5.1 mmol/LRESULTS CALLED TO [employer]UAN [employer]ON [employer]OB TITLES AT 8558Pqqweakg48702-946 mmol/LCarbon Xyllgkz83.621.0-32.0 mmol/LAnion Gap 11.6Fahfusn6869-986 mg/dLBlood Urea Lyskpxdw19.07.0-18.0 mg/dLCreatinine1.20 0.55-1.02 mg/dLEstimated GFR ( Eiixhzn40>=60 mL/min/1.73m 2Estimated GFR (Non- Ame43>=60 mL/min/1.73m 2BUN Creatinine Ratio18.6Qrycezm5.88.5-10.1 mg/dLBilirubin Total0.40.2-1.0 mg/dLAspartate Amino Tyftlzkipqd1135-19 U/L Alanine Vfgztdvzwisdifto7298-96 U/LAlkaline Xtqsynikwkt4179-058 U/LTotal Protein 6.46.4-8.2 g/dLAlbumin Level3.33.4-5.0 g/dLGlobulin3.1Albumin Globulin Ratio1.1 Performing Lab:see noteML - [facility] LBManual Differential Reviewed date:03/23/2024 09:20:24 AM Interpretation: Performing Lab: Notes/Report: [facility] ,Segmented Neutrophils % Yenuex73.043.0-75.0Lymphocytes Percent Jhvtoj08.020.5- 60.0 %Monocytes Percent Manual8.01.7-12.0 %Eosinophils Percent Manual2.00.9-7.0 %Basophils Percent Manual0.00.2-2.0 %Segmented Neut Absolute Manual3.181.4-6.5 10 3/uLLymphocytes Absolute Manual0.681.20-3.80 10 3/uLMonocytes Absolute Manual 0.340.30-0.80 10 3/uLEosinophils Absolute Manual0.080.00-0.70 10 3/uLBasophils Abs Manual0.000.00-0.10 10 3/uLPerforming Lab:see noteML - [facility] LBPROF 14(COMP METB) Reviewed date:04/04/2024 12:57:35 PM Interpretation: Performing Lab: Notes/Report: [facility] ,Yakgex019229-688 mmol/LPotassium4.63.5-5.1 mmol/BAlcohtjl6856-712 mmol/LCarbon Erpzlxz75.721.0-32.0 mmol/LAnion Gap10.7Ioshdcn70669-408 mg/dLBlood Urea Guyffkge18.07.0-18.0 mg/dLCreatinine1.110.55-1.02 mg/dLEstimated GFR ( Gvsdxnj89>=60 mL/min/1.73m 2Estimated GFR (Non- Ame47>=60 mL/min/1.73m 2 BUN Creatinine Ratio15.8Fkhjcvd7.38.5-10.1 mg/dLBilirubin Total0.30.2-1.0 mg/dL Aspartate Amino Mkjlldjbtfc6727-84 U/LAlanine Jswnzttzkqrvcrcd0923-23 U/L Alkaline Rynwdhnhxsq6915-987 U/LTotal Protein6.66.4-8.2 g/dLAlbumin Level3.43.4- 5.0 g/dLGlobulin3.2Albumin Globulin Ratio1.1Performing Lab:see noteML - [facility] LBCT PELVIS WO CON Reviewed date:07/23/2024 08:48:43 PM Interpretation: Performing Lab: Notes/Report: Source Facility: [facility]-[address] [place] [address] [place] [address] CT Scan Report Signed Patient: ALEXA DELGADO MR#: [id number] : 1940 Acct:[id number] Age/Sex: 84 / F ADM Date: 07/23/24 Loc: ER Attending Dr: Ordering Physician: Pauline Ferrell Date of Service: 07/23/24 Procedure(s): CT pelvis wo con Accession Number(s): [id number] cc: Galina Rogers M.D. [place] [id number] Patient Name: ALEXA DELGADO MRN: [id number] date: 1940 Sex: F Assigned Patient Location: ED.MAIN Current Patient Location: ED.MAIN Accession/Order Number: [id number] Exam Date: 07/23/2024 14:42 Report Date: 07/23/2024 [...] Patel M.D. 07/23/2024 2:46 PM Dictation Location: [place] [address] Electronically authenticated by: [id number] Y Date: 07/23/2024 14:46 Dictated By: Yovany Patel M.D. Signed By: 07/23/24 1448 DD/ 1446 TD/TT: Luggage Repairer:XR KNEE RT 3V Reviewed date:07/23/2024 08:48:43 PM Interpretation: Performing Lab: Notes/Report: Source Facility: [place] [id number] XRay Report Signed Patient: ALEXA DELGADO MR#: [id number] : 1940 Acct:[id number] Age/Sex: 84 / F ADM Date: 07/23/24 Loc: ER Attending Dr: Ordering Physician: Pauline Ferrell Date of Service: 07/23/24 Procedure(s): XR knee RT 3V Accession Number(s): [id number] cc: Galina Rogers M.D.; Pauline Ferrell [place] [address] Patient Name: ALEXA DELGADO MRN: [id number] date: 1940 Sex: F Assigned Patient Location: ED.MAIN Current Patient Location: ED.MAIN Accession/Order Number: [id number] Exam Date: 07/23/2024 14:46 Report Date: 07/23/2024 [...] Patel M.D. 07/23/2024 2:46 PM Dictation Location: [place] [address] Electronically authenticated by: [id number] Y Date: 07/23/2024 14:46 Dictated By: Yovany Patel M.D. Signed By: 07/23/24 1449 DD/ 1446 TD/TT: Luggage Repairer:XR shoulder LT min 2V Reviewed date:07/23/2024 08:48:43 PM Interpretation: Performing Lab: Notes/Report: Source Facility: [address] [place] [address] XRay Report Signed Patient: ALEXA DELGADO MR#: [id number] : 1940 Acct:[id number] Age/Sex: 84 / F ADM Date: 07/23/24 Loc: ER Attending Dr: Ordering Physician: Pauline Ferrell Date of Service: 07/23/24 Procedure(s): XR shoulder LT min 2V Accession Number(s): [id number] cc: Galina Rogers M.D.; Pauline Ferrell [place] [address] Patient Name: ALEXA DELGADO MRN: [id number] date: 1940 Sex: F Assigned Patient Location: ED.MAIN Current Patient Location: ED.MAIN Accession/Order Number: [id number] Exam Date: 07/23/2024 14:47 Report Date: 07/23/2024 [...] Patel M.D. 07/23/2024 2:48 PM Dictation Location: [place] [address] Electronically authenticated by: [id number] Y Date: 07/23/2024 14:48 Dictated By: Yovany Patel M.D. Signed By: 07/23/24 1451 DD/ 1448 TD/TT: Luggage Repairer:CT cervical spine wo con Reviewed date:07/23/2024 08:48:43 PM Interpretation: Performing Lab: Notes/Report: Source Facility: [place] [address] CT Scan Report Signed Patient: ALEXA DELGADO MR#: [id number] : 1940 Acct:[id number] Age/Sex: 84 / F ADM Date: 07/23/24 Loc: ER Attending Dr: Ordering Physician: Pauline Ferrell Date of Service: 07/23/24 Procedure(s): CT cervical spine wo con Accession Number(s): [id number] cc: Galina Rogers M.D. [place] [address] Patient Name: ALEXA DELGADO MRN: [id number] date: 1940 Sex: F Assigned Patient Location: ED.MAIN Current Patient Location: ED.MAIN Accession/Order Number: [id number] Exam Date: 07/23/2024 14:38 Report Date: 07/23/2024 [...] Patel M.D. 07/23/2024 2:42 PM Dictation Location: [place] [address] Electronically authenticated by: [id number] Y Date: 07/23/2024 14:42 Dictated By: Yovany Patel M.D. Signed By: 07/23/24 1445 DD/ 144 TD/TT: Luggage Repairer:XR forearm LT 2V Reviewed date:07/23/2024 08:48:43 PM Interpretation: Performing Lab: Notes/Report: Source Facility: [place] [address] XRay Report Signed Patient: ALEXA DELGADO MR#: [id number] : 1940 Acct:[id number] Age/Sex: 84 / F ADM Date: 07/23/24 Loc: ER Attending Dr: Ordering Physician: Pauline Ferrell Date of Service: 07/23/24 Procedure(s): XR forearm LT 2V Accession Number(s): [id number] cc: Galina Rogers M.D.; Pauline Ferrell [place] [address] Patient Name: ALEXA DELGADO MRN: [id number] date: 1940 Sex: F Assigned Patient Location: ED.MAIN Current Patient Location: ED.MAIN Accession/Order Number: [id number] Exam Date: 07/23/2024 14:47 Report Date: 07/23/2024 [...] Patel M.D. 07/23/2024 2:47 PM Dictation Location: [place] [address] Electronically authenticated by: [id number] Y Date: 07/23/2024 14:47 Dictated By: Yovany Patel M.D. Signed By: 07/23/24 1450 DD/ 1447 TD/TT: Luggage Repairer:XR HAND RT MIN 3V Reviewed date:08/02/2024 12:53:09 PM Interpretation: Performing Lab: Notes/Report: Source Facility: [place] [address] XRay Report Signed Patient: ALEXA DELGADO MR#: [id number] : 1940 Acct:[id number] Age/Sex: 84 / F ADM Date: 08/01/24 Loc: [facility] Attending Dr: Epifanio Meza NP Ordering Physician: Epifanio Meza NP Date of Service: 08/01/24 Procedure(s): XR hand RT min 3V Accession Number(s): [id number] cc: Epifanio Meza NP; Galina Rogers M.D. [place] [address] Patient Name: ALEXA DELGADO MRN: [id number] date: 1940 Sex: F Assigned Patient Location: [facility] Current Patient Location: [facility] Accession/Order Number: [id number] Exam Date: 08/01/2024 20:16 Report Date: 08/01/2024 [...] Esquivel M.D. 08/01/2024 8:18 PM Dictation Location: [place] [address] Electronically authenticated by: [id number] Y Date: 08/01/2024 20:18 Dictated By: Aiden Esquivel D.O. Signed By: 08/01/242020 DD/ 17 TD/TT: Luggage Repairer:CBC AUTO DIFF Reviewed date:09/23/2024 07:33:22 PM Interpretation: Performing Lab: Notes/Report: [facility] ,White Blood Count3.94.0-11.0 10 3/uLRed Blood Count3.664.20-5.40 10 6/uL Djujwkrbnd41.512.0-16.0 g/oIEwrjaugdci89.436.0-48.0 %Mean Corpuscular Lkdsdk05.7 81.0-99.0 fLMean Corpuscular Ejwvdxjdba92.426.7-34.0 pgMean Corpuscular HGB Conc 32.529.9-35.2 g/dLRed Cell Distribution Width12.611.0-15.0 %Platelet Oxkkk227 150-450 10 3/uLMean Platelet Volume9.49.5-13.5 fLNeutrophils Percent Auto72.7 43.0-75.0 %Lymphocytes Percent Auto5.220.5-60.0 %Monocytes Percent Auto20.11.7- 12.0 %Eosinophils Percent Auto1.00.9-7.0 %Basophils Percent Auto0.50.2-2.0 % Immature Granulocytes Pct Auto0.50.0-0.5 %Neutrophils Absolute Auto2.81.4-6.5 10 3/uLLymphocytes Absolute Auto0.21.2-3.8 10 3/uLMonocytes Absolute Auto0.80.3-0.8 10 3/uLEosinophils Absolute Auto0.00.0-0.7 10 3/uLBasophils Absolute Auto0.00.0- 0.1 10 3/uLImmature Granulocytes Abs Auto0.020.00-0.03 10 3/uLPerforming Lab:see noteML - [facility] LBPROF 14(COMP METB) Reviewed date:09/23/2024 07:33:22 PM Interpretation: Performing Lab: Notes/Report: [facility] ,Myrdkk077574-644 mmol/LPotassium3.93.5-5.1 mmol/AZxjdiorl6520-415 mmol/LCarbon Smuffsm27.921.0-32.0 mmol/LAnion Gap11.5Yokonyf2359-636 mg/dLBlood Urea Nitrogen 29.07.0-18.0 mg/dLCreatinine0.960.55-1.02 mg/dLEstimated GFR ( Maddy>60 >=60 mL/min/1.73m 2Estimated GFR (Non- Ame55>=60 mL/min/1.73m 2BUN Creatinine Ratio30.6Xqfmenx3.78.5-10.1 mg/dLBilirubin Total0.40.2-1.0 mg/dL Aspartate Amino Mhzptihrsjv4710-13 U/LAlanine Xxwmdcyzkoplrzqn2413-50 U/L Alkaline Espnehlwxuz2458-386 U/LTotal Protein7.36.4-8.2 g/dLAlbumin Level3.63.4- 5.0 g/dLGlobulin3.7Albumin Globulin Ratio1.0Performing Lab:see noteML - [facility] LBUA RANDOM W or MICROSCOPIC Reviewed date:09/23/2024 07:33:22 PM Interpretation: Performing Lab: Notes/Report: [facility] ,Color UrineLT. YELLOWYELLOWClarity UrineCLEARCLEARSpecific [place] Urine1.010 1.005-1.025pH Urine7.55.0-9.0Protein UrineNEGATIVENEG/TRACE mg/dLGlucose Urine UANEGATIVENEGATIVE mg/dLBilirubin UrineNEGATIVENEGATIVEKetones UrineNEGATIVE NEGATIVE mg/dLBlood UrineTRACE-INEGATIVENitrite UrineNEGATIVENEGATIVE Urobilinogen Urine0.20.2-1.0 EU/dLLeukocyte Esterase UrineTRACENEGATIVEWBC Urine 0-2NONE SEEN #/HPFRBC Urine0-20-2 #/HPFBacteria UrineTRACENONE SEEN #/HPFMucus UrineNONE SEENNONE SEENSquamous Epithelial Cell UrineRARENONE/RARE #/LPFCrystals Seen?None SeenNone Seen #/HPFCast Seen?NONE SEENNONE SEEN #/LPFPerforming Lab: see noteML - [facility] LBUrine Culture - FR Reviewed date:09/24/2024 06:32:44 PM Interpretation: Performing Lab: Notes/Report: [facility] ,[facility] For [facility] - [facility] No Growth 2 Days Urine Culture - [facility] Urine Culture - FR No Growth 2 Days Urine [facility] - FRMCTesting performed at [facility] Urine Culture - FR No Growth 2 Days Urine Culture - [id number] [place] [id number] Urine Culture - FR No Growth 2 Days Performing Lab:see noteML - [facility] LBUS renal bladder Reviewed date:09/24/2024 12:59:18 PM Interpretation: Performing Lab: Notes/Report: Source Facility: [place] [address] [place] [address] Ultrasound Report Signed Patient: ALEXA DELGADO MR#: [id number] : 1940 Acct:[id number] Age/Sex: 84 / F ADM Date: 09/24/24 Loc: US Attending Dr: Galina Rogers M.D. Ordering Physician: Galina Rogers M.D. Date of Service: 09/24/24 Procedure(s): US renal bladder Accession Number(s): [id number] cc: Galina Rogers M.D. [place] [address] Patient Name: ALEXA DELGADO MRN: [id number] date: 1940 Sex: F Assigned Patient Location: US Current Patient Location: US Accession/Order Number: [id number] Exam Date: 09/24/2024 12:48 Report Date: 09/24/2024 [...] Jr., D.O. 09/24/2024 12:49 PM Dictation Location: [place] [address] Electronically authenticated by: [id number] Y Date: 09/24/2024 12:49 Dictated By: Raz Norris M.D. Signed By: 09/24/24 1251 DD/ 1249 TD/TT: Luggage Repairer:MM screening mammo BI Reviewed date:12/03/2024 06:24:03 PM Interpretation: Performing Lab: Notes/Report: Source Facility: [place] [address] Mammography Report Signed Patient: ALEXA DELGADO MR#: [id number] : 1940 Acct:[id number] Age/Sex: 84 / F ADM Date: 12/03/24 Loc: MAMMO Attending Dr: Galina Rogers M.D. Ordering Physician: Galina Rogers M.D. Results: Date of Service: 12/03/24 Follow Up: Procedure(s): MM screening mammo BI Accession Number(s): [id number] cc: Galina Rogers M.D. Patient Name: ALEXA DELGADO MR#: [id number] : 1940 Exam Date: 12/03/2024 Ordering Doctor: DR GALINA ROGERS . RADIOLOGY REPORT PROCEDURE: MM SCREENING MAMMO BI COMPARISON: MM SCREENING MAMMO BI, 12/02/2023. MM SCREENING MAMMO BI, 11/26/2022. INDICATIONS: screening Calculator Name NCI Breast Cancer Risk Assessment Tool 5 Year Breast Cancer Risk 1.70% Lifetime Breast Cancer Risk 1.70% Personal Breast Cancer No Personal Ovarian Cancer No Treatments None Family Cancers None LOCATION: [facility] BREAST COMPOSITION: There are scattered areas of fibroglandular density. FINDINGS: DIAGNOSTIC CATEGORY 1--NEGATIVE. RIGHT BREAST: No significant suspicious finding. LEFT BREAST: No significant suspicious finding. RECOMMENDATIONS: ROUTINE MAMMOGRAM AND CLINICAL EVALUATION IN 12 MONTHS. Dictated by: Chris Hamilton MD on 12/03/2024 at 15:32 Approved by: Chris Hamilton MD on 12/03/2024 at 15:34 Dictated By: Chris Hamilton M.D. Signed By: 12/03/24 1535 DD/ 1534 TD/TT: Luggage Repairer:CT head/brain wo con Reviewed date:07/23/2024 08:48:43 PM Interpretation: Performing Lab: Notes/Report: Source Facility: [place] [address] CT Scan Report Signed Patient: ALEXA DELGADO MR#: [id number] : 1940 Acct:[id number] Age/Sex: 84 / F ADM Date: 07/23/24 Loc: ER Attending Dr: Ordering Physician: Pauline Ferrell Date of Service: 07/23/24 Procedure(s): CT head/brain wo con Accession Number(s): [id number] cc: Galina Rogers M.D. [place] [address] Patient Name: ALEXA DELGADO MRN: [id number] date: 1940 Sex: F Assigned Patient Location: ED.MAIN Current Patient Location: ED.MAIN Accession/Order Number: [id number] Exam Date: 07/23/2024 14:31 Report Date: 07/23/2024 [...] Patel M.D. 07/23/2024 2:38 PM Dictation Location: [place] [address] Electronically authenticated by: [id number] Y Date: 07/23/2024 14:38 Dictated By: Yovany Paetl M.D. Signed By: 07/23/24 1440 DD/ 1438 TD/TT: Luggage Repairer: Reason For Referral Diagnosis 1 Weakness (R53.1) Referral Organization [facility] Medicine Referring Provider First Name Bang Referring Provider Last Name Jeremiasgavino Referring Provider Speciality Family Med icine Referred Provider [facility], Physical Therap y Referred Provider Specialty Physical The rapist General Notes Sydnee Ojeda 2024 09:14:46 AM >[facility] as well Referral Priority Routine Diagnosis 1 Urinary retention (R 33.9) Referral Organization [facility] Medicine Referring Provider First Name Bang Referring Provider Last Name Sue Referring Provider Speciality [facility] naomi Referred Provider Bryan Sherman Referred Provider Specialty Urology Referral Priority Routine Medications Medication SIG (Take, Route, Frequency, Duration) Notes Start Date End Date Status Hyoscyamine Sulfate 0.125 MG 1-2 tabs SL SL ever y 4 hrs PRN abd pain 5ActiveHYDROcodone-Acetaminophen 5-325 MG1 tablet as needed Orally three times dailyActiveFlaxseed Oil 1000 MGas directed OrallyActiveFerrous Sulfate 325 (65 Fe) MGTAKE 1 TABLET BY MOUTH TWICE A DAY FOR 30 DAYS; Duration: 90ActiveDiclofenac Sodium 75 MGTAKE 1 TABLET TWICE A DAY NEEDED; Duration: 90 ActiveIsosorbide Mononitrate ER 30 MGTAKE 1 TABLET BY MOUTH EVERY DAY IN THE MORNING FOR 90 DAY; Duration: 90ActivePotassium Chloride Liza ER 20 MEQTAKE 1 TABLET BY MOUTH TWICE A DAY WITH FOOD; Duration: 90ActiveMelatonin 3 MG1 tablet at bedtime as needed Orally Once a day; Duration: 30 day(s)ActiveMagnesium 250 MG1 tablet with a meal Orally Once a day07/20/2023ctiveLiothyronine Sodium 25 MCGTAKE 1 TABLET ONCE 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; Duration: 90ActiveLevothyroxine Sodium 75 MCGTAKE 1 TABLET BY MOUTH EVERY DAY; Duration: 90ActiveCyclobenzaprine HCl 5 MGTAKE 1 TABLET IN THE MORNING AND 2 TABLETS AT BEDTIME DIRECTED; Duration: 30ActiveAllegra Allergy 180 MG1 tablet Swallow whole with water; do not take with fruit juices. Orally Once a day; Duration: 30 day(s)ActiveProlia 60 MG/MLas directed SubcutaneousActivePantoprazole Sodium 40 MGTAKE 1 TABLET BY MOUTH EVERY DAY; Duration: 90ActiveOndansetron 4 MG1 tablet on the tongue and allow to dissolve Orally qid; Duration: 5 days5ActiveNitroglycerin 0.4 MGas directed SublingualActiveMultivitalActiveMetoprolol Succinate ER 50 MGTAKE 2 TABLETS EVERY MORNING AND 1 TABLET IN THEEVENING; Duration: 90Active Compression Stocking Thigh 20-30mmHg -4ActiveTylenol Arthritis Pain 650 MG2 tablets as needed Orally every 8 hrsActiveCitalopram Hydrobromide 10 MGTAKE 1 TABLET BY MOUTH EVERY DAY; Duration: 90ActiveTriple Flex 500-400-125 MG1 tablet with meals Orally twice daily; Duration: 30 daysActiveCaltrate 600+D 600- 400 MG-UNIT1 tablet Orally Twice a day; Duration: 30 day(s)ActiveSalonpas Pain Relief Patch -as directed ExternallyActiveAspirin 81 MG1 tablet Orally Every other day; Duration: 30 daysActiveSaline Bellwood 0.65 %as directed Nasally 4Active Immunizations Vaccine Route Administration Date Status Comme nts Flu, Fluad (50636) 65 yrs+, single-dose syringe (1922-4038) Unknown 10/25/2022 Administered Tdap (Boostrix)Csxbdhf0507/23/2024dministeredZOSTER (SHINGLES) VACCINE (HZV) Przcvyq9509/22/2024dministeredZOSTER (SHINGLES) VACCINE (HZV)Tgtfypi3511/22/2024 Administered Social History Tobacco Use: Social History Observation Description Date Details (start date - stop date) Never Smoker NA - NA Tobacco Use/Smoking Question Answer Notes Patient is a nonsmoker AUDIT-C (Standard) Question Answer Notes Did you have a drink containing alcohol in the p ast year? No Lnivkl0UonazzbbqybrtrGhzstjwu Problems Problem Type SNOMED Code ICD Code Onset Dates Problem Status W/U Status Risk Notes Problem Age-related osteoporosis (406277 002) Age-related osteoporosis without current pathological fracture (M81.0) ActiveconfirmedProblemObesity (225053610)Obesity, unspecified (E66.9)Active confirmedProblemHyperlipidemia (76217874)Hyperlipidemia, unspecified (E78.5) ActiveconfirmedProblemSupraventricular tachycardia (1357276)Supraventricular tachycardia (I47.1)ActiveconfirmedProblemChronic respiratory failure (14375533) Chronic respiratory failure with hypoxia (J96.11)ActiveconfirmedProblem Arthropathies and related disorders (833573559)Other specific arthropathies, not elsewhere classified, unspecified hand (M12.849)ActiveconfirmedProblemLumbar spine scoliosis (917866360)Other forms of scoliosis, lumbar region (M41.86) ActiveconfirmedProblemLumbosacral spondylosis without myelopathy (77812407)Other spondylosis, lumbar region (M47.896)ActiveconfirmedProblemDegeneration of thoracic intervertebral disc (30029353)Other intervertebral disc degeneration, 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)ActiveconfirmedProblemDegeneration of lumbar intervertebral disc (38964564)Other intervertebral disc degeneration, lumbar region (M51.36)ActiveconfirmedProblemChest pain (51589196)Chest pain (R07.9) ActiveconfirmedProblemHypertension (98017049)Hypertension (I10)Activeconfirmed ProblemHypothyroidism (51775275)Hypothyroidism (E03.9)ActiveconfirmedProblem Coronary artery disease (47315357)CAD (coronary artery disease) (I25.10)Active confirmedProblemHypothyroid (39179915)Hypothyroid (E03.9)ActiveconfirmedProblem Arthritis (6066616)Arthritis (M19.90)ActiveconfirmedProblemSleep apnea (96929799)Sleep apnea (G47.30)ActiveconfirmedProblemObstructive sleep apnea syndrome (37170912)BETO (obstructive sleep apnea) (G47.33)ActiveconfirmedProblem Dementia (87450314)Dementia (F03.90)ActiveconfirmedProblemTransient ischemic attack (072252592)TIA (transient ischemic attack) (G45.9)ActiveconfirmedProblem Confusion (37062255)Confusion (R41.0)ActiveconfirmedProblemAllergic rhinitis (51423180)Allergic rhinitis (J30.9)ActiveconfirmedProblemLocalized, primary osteoarthritis of the pelvic region and thigh (066409651)Osteoarthritis of right hip (M16.11)ActiveconfirmedProblemStasis dermatitis (disorder) (94746512)Venous stasis dermatitis (I83.10)ActiveconfirmedProblemAcquired hypothyroidism (261556578)Acquired hypothyroidism (E03.9)ActiveconfirmedProblemSciatica (70259420)Sciatica (M54.30)ActiveconfirmedProblemArthritis of both knees (2962798636843028)Arthritis of both knees (M19.90)ActiveconfirmedProblemSeasonal allergic rhinitis (325756650)Seasonal allergic rhinitis (J30.2)Activeconfirmed ProblemMemory loss (90928879)Memory loss (R41.3)ActiveconfirmedProblemScoliosis (380621685)Scoliosis (M41.9)ActiveconfirmedProblemHyperthyroidism (25956511) Hyperthyroidism (E05.90)ActiveconfirmedProblemLaboratory test result abnormal (608370120)Abnormal laboratory test (R89.9)ActiveconfirmedProblemCervical spondylosis (216409788)Cervical spondylosis (M47.812)ActiveconfirmedProblem Degeneration of cervical intervertebral disc (72125652)Degenerative cervical disc (M50.30)ActiveconfirmedProblemFluid overload (94950936)Fluid overload (E87.70)ActiveconfirmedProblemDisorder of lumbar disc (017000798)Disc disorder of lumbar region (M51.9)ActiveconfirmedProblemEdema (578714326)Bilateral leg edema (R60.0)ActiveconfirmedProblemAllergic arthritis of the shoulder region (444026272)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)Activeconfirmed ProblemMonocytosis (56147191)Monocytosis (D72.821)ActiveconfirmedProblemOtitis externa (4431307)External otitis (H60.90)ActiveconfirmedProblemDisplacement of lumbar intervertebral disc without myelopathy (14816680)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)ActiveconfirmedProblemEssential hypertension (03388750)BP (high blood pressure) (I10)ActiveconfirmedProblemPure hypercholesterolemia (976855288)Pure hypercholesterolemia, unspecified (E78.00) ActiveconfirmedProblemThyromegaly (7204781)Thyromegaly (E01.0)Activeconfirmed ProblemDiastolic heart failure (792953188)CHF (congestive heart failure), NYHA class I, unspecified failure chronicity, diastolic (I50.30)Activeconfirmed ProblemLaceration of arm, left, subsequent encounter (S41.112D)Activeconfirmed ProblemMixed anxiety and depressive disorder (526077830)Anxiety and depression (F41.8)ActiveconfirmedProblemSecondary pulmonary hypertension (07127884)Other secondary pulmonary hypertension (I27.29)ActiveconfirmedProblemPoor short-term memory (868460383)Poor short-term memory (R41.3)ActiveconfirmedProblemBody mass index 30.00 to 34.99 ([id number])Body mass index [BMI] 31.0-31.9, adult (Z68.31)ActiveconfirmedProblemEasy bruising (899593474)Easy bruisability (R23.3) Activeconfirmed Vital Signs Heart Rate 96 /min 03/22/2024 Mwdxobuhpqx84.8 degrees Loctmrnfao69/30/1558Tgbshpjx39 %03/22/2024lood pressure zsiedseww68 mm Hg08/06/20248940Krjoju54 in08/06/2024lood pressure ipnasqze409 mm Hg08/06/20244531Dlmeee572 lbs08/06/2024BMI33.2 kg/m208/06/2024 Encounters Encounter Location Date Provider Diagnosis [address] [address] 01/25/2024 [place] Poor short-term lynette ry R41.3 ; Hypothyroidism E03.9 ; Pure hypercholesterolemia, unspecified E78.00 ; TIA (transient ischemic attack) G45.9 and Hypertension I10 [address] [address] 03/22/2024 Judi Ivone Gastroenteritis K52. [address] [address] 07/25/2024 [place] Laceration of arm, right, initial encounter S41.111A and H/O fall Z91.81 [address] [place] [address] 07/30/2024 Bang Hoy Laceration of arm, l eft, subsequent encounter S41.112D [address] [place] [address] 08/06/2024 Bang Rogers Laceration of arm, l eft, subsequent encounter S41.112D [facility] [address] [place] [address] 04/10/2024 Bang Rogers Encounter for Medica re annual wellness exam Z00.00 [facility] [address] [place] [address] 01/26/2024 Bang Hoy [facility] [place] [address] 03/21/2024[facility] [place] [address]/30/2025[facility] [place] [address]/Pamela CramerAbnormal laboratory test R89.9 [facility] [place] [address] 04/04/2024Pamela [facility] [place] [address]/Doug HoyWeakness R53.1[facility] [place] [address]/08/2024[facility] [place] [address]/ Bang HoyAbnormal laboratory test R89.9 ; Confusion R41.0 and Bladder retention [address] [place] [address] 09/23/2024[facility] [place] [address]/05/2024Doug HoyUrinary retention R33.[address] [facility] [place] [address]/Doug Hoy Assessments Encounter Date Diagnosis (ICD Code) Assessment Notes Treatment Notes Treatment Clinical Notes Section Notes 01/25/2024 Poor short-term memory (ICD-10 - R41.3) 01/25/2024Hypothyroidism (ICD-10 - E03.9)03/22/2024Gastroenteritis (ICD-10 - K52.9) push fluids, electrolytes symptoms resolving at this time ER if needed , feels worse notify office if diarrhea continues >7 days has been taking zofran and levsin 04/10/2024Encounter for Medicare annual wellness exam (ICD-10 - Z00.00) 07/25/2024Laceration of arm, right, initial encounter (ICD-10 - S41.111A) 07/25/2024H/O fall (ICD-10 - Z91.81)07/30/2024Laceration of arm, left, subsequent encounter (ICD-10 - S41.112D)08/06/2024Laceration of arm, left, subsequent encounter (ICD-10 - S41.112D)Stitches coming out with03/23/2024 Abnormal laboratory test (ICD-10 - R89.9)04/10/2024Weakness (ICD-10 - R53.1) 09/20/2024bnormal laboratory test (ICD-10 - R89.9)09/20/2024onfusion (ICD-10 - R41.0)09/24/2024Urinary retention (ICD-10 - R33.9)09/20/2024ladder retention (ICD-10 - R33.9)01/25/2024ure hypercholesterolemia, unspecified (ICD-10 - E78.00)01/25/2024TIA (transient ischemic attack) (ICD-10 - G45.9)01/25/2024 Hypertension (ICD-10 - I10)07/25/2024Otherno signs infections Plan Of Treatment Pending Test [...] 08/12/2023 CMP 03/23/2024 JASON Ankle Brachial Index (29323) 024 AMMONIA 08/18/2022 BLEEDING TIME 08/12/2023 CBC [...] Coverage End Date MEDICARE RAILROAD [address] [address] [place], [place] [id number] Sunny Delgadoelf - patient is the [id number] [address] [address] [place] [phone], Robert Spouse - patient is the spouse of the [id number] 2013 Medications Administered Medication Instructions Date of Administration Dosage Notes Kenalog-40 mgKetorolac Ovjsxfnppesp68/25/202360 mgKetorolac Tromethamine mgOrphenadrine Ezturtv150 mg Medical (General) History Medical History History [...] hypertension I 27.29 Surgical History Surgery Date(Month/Year) Bunionectomy Left L4-L5, L5-S1 transforaminal epidural steroid inj10/01/2024ilateral Sacroiliac Joint Injection05/28/24Left sacroiliac joint injectionleft L4-5, L5-S1 transforaminal epidural steroid injectionTrigger Point Inj- Bilateral paralumbar and gluteal Dr. Meza08/31/2023ladder surgerycataract-lens implants Cholecystectomyleft knee arthroscopyRight Knee ReplacementL4-L5 fusion w/discectomyTumor Right Breastbladder reconstructionTumor Left Ipmiqu9930 HYSTERECTOMY DWWXD7136V&C (multiple)JWOQDPLNHZVC7298HLJRNYBSJEAZC,OVER 12 YRS 1957Hospitalization History Reason Date(Month/Year) vertigo 07/2022
--- OUTSIDE RECORDS SUMMARY | 2025-01-09 13:13 | XMS_ITS | Clinical Summary ---
Author Organization [facility] Address [address] [place] [address] Care Team Providers Care Information Lead Name Role Phone Luis Rogers MD Primary Care Provider [phone] Allergies Active AllergyReactionsCriticalityNoted YjksMmheajxsZesnkra66/12/2023 PropoxypheneGI intolerance,Qvhgkyoh42/12/2023seudoephedrine Hcl08/02/2022 NOTES SENSITIVITY NbuxjswimlfWxxdrea35/15/4718SqibcdiuzuDldornbcv28/12/2023enicillinsUnknown 08/02/2022 CHILDHOOD ALLERGY QuinineGI intolerance,Headache,Lhmfstcbr88/12/2023 QUINAMM Medications MedicationSigDispense QuantityRefillsLast FilledStart DateEnd DateStatus Calcium Carbonate-Vitamin D (CALTRATE 600+D PO) Take by mouth twice a day.Active citalopram (CeleXA) 10 MG tablet 1 (one) time each day at the same time.Active cyclobenzaprine (Flexeril) 5 MG tablet Take 5 mg by mouth every 12 (twelve) hours if needed.Active diclofenac (Voltaren) 75 MG EC tablet every 12 (twelve) hours.Active Flaxseed, Linseed, (Flax Seed Oil) 1000 MG capsule as directed OrallyActive Bzolvhowvoi-Xtiiovkvnhu-GDT (Triple Flex) 500-400-125 MG tablet 1 tablet with meals Orally twice daily for 30 daysActive HYDROcodone-acetaminophen ([place]) 5-325 MG tablet 1 tablet as needed Orally twice daily04/29/2022ctive isosorbide mononitrate ER (Imdur) 30 MG 24 hr tablet Take 30 mg by mouth in the morning.03/21/2022ctive levothyroxine (Synthroid, Levoxyl) 75 MCG tablet 1 (one) time each day at the same time.03/18/2022ctive liothyronine (Cytomel) 25 MCG tablet 1 (one) time each day at the same time.Active melatonin 3 MG tablet 1 (one) time each day at the same time.Active metoprolol succinate XL (Toprol-XL) 50 MG 24 hr tablet 1 tablet Orally twice daily for 90 daysActive nitroglycerin (Nitrostat) 0.4 MG SL tablet as directed SublingualActive Zinc-Magnesium Aspart-Vit B6 (Zinc Magnesium Aspartate) 150-3.83-10 MG capsule 1 (one) time each day at the same time.Active acetaminophen (Tylenol) 500 MG tablet Take by mouth.Active aspirin 81 MG EC tablet Take 81 mg by mouth in the morning.Active Multiple Vitamin (multivitamin) tablet Take 1 tablet by mouth in the morning.Active ferrous sulfate 325 (65 Fe) MG tablet Take 1 tablet by mouth in the morning and 1 tablet before bedtime.09/16/2023 Active pantoprazole (ProtoNix) 40 MG EC tablet Take 40 mg by mouth Daily10/13/2023ctive fexofenadine (Benita) 180 MG tablet Take 180 mg by mouth DailyActive MAGNESIUM PO Take by mouth + cheleated zincActive Uejjscc-Sscumxb-Muslvw Edwar (SALONPAS TD) Place on the skinActive Trolamine Salicylate (BLUE-EMU MAXIMUM PAIN RELIEF EX) Apply topicallyActive Active Problems ProblemNoted DateDiagnosed DateFibrocystic breast qalkpgm6712/06/2023rimary osteoarthritis of right knee12/06/2023Spinal stenosis, lumbar region with neurogenic tdaqoojvekxs36/01/2023Scoliosis of lumbar spine04/11/2022Essential dnjfbfoaxgpi89/23/2422Pssmwsccjuvqul49/23/2013 Immunizations ImmunizationAdministration DatesNext DueInfluenza, Ubnyhqvtcaq26/08/2021 Influenza, injectable, MDCK, preservative free, qtddmmgihtmw88/12/2022Influenza, trivalent, zirgaeakaz64/08/2020Moderna Bivalent Booster Fxbmoqxpvcp44/19/2022 Pneumococcal Conjugate PCV 13011/12/2016Zoster, live05/27/2017 Family History Medical HistoryRelationNameCommentsHeart diseaseFatherHeart diseaseMother RelationNameStatusCommentsFatherDeceasedMotherDeceased Social History Tobacco UseTypesPacks/DayYears UsedDateSmoking Tobacco: NeverSmokeless Tobacco: NeverAlcohol UseStandard Drinks/WeekCommentsNever0 (1 standard drink = 0.6 oz pure alcohol)AUDIT-CAnswerDate RecordedQ1: How often do you have a drink containing alcohol?Never12/06/2023Q2: How many drinks containing alcohol do you have on a typical day when you are drinking?Patient does not drink12/06/2023Q3: How often do you have six or more drinks on one occasion?Never12/06/2023HQ-2 AnswerDate RecordedPatient Health Questionnaire-2 Nmgrm280regnant CommentsNoSex and Gender InformationValueDate RecordedSex Assigned at BirthNot on fileLegal MhmYktlat11/15/2023 6:37 PM EDTGender IdentityNot on fileSexual OrientationNot on file Last Filed Vital Signs Vital SignReadingTime TakenCommentsBlood Lcvkxlec047/8212/06/2023 11:32 AM EDT Pulse--Temperature--Respiratory Rate--Oxygen Saturation--Inhaled Oxygen Concentration--Chbdbk82.4 kg (164 lb)12/06/2023 11:32 AM RUMQqvrrv791.3 cm (4' 10 )12/06/2023 11:32 AM EDTBody Mass Index34.281 11:32 AM EDT Plan of Treatment DateTypeDepartmentCare Team (Latest Contact Info)Mzuxnqidzap62/09/2025 1:25 PM ESTOffice Visit [facility] [address] [place] [address] Shilpa Read MD [address] [place] [address] 12/10/2025 11:30 AM EDTOffice Visit [facility] [address] [place] [address] Armando Thayer, [address] [place] [address] Health MaintenanceDue DateLast DoneCommentsPneumococcal Vaccine: 65+ Years (2 of 2 - PCV20 or PCV21)COVID-19 Vaccine ( season) 508/01/2023, 12/09/2021, 06/04/2021, Additional history existsInfluenza Vaccine (#1)/, 10/25/2022, 12/02/2021, Additional history exists Insurance * Guarantor: Alexa Delgado TypeRelation to PatientDate of BirthPhone Billing AddressPersonal/RqovlrKmab38/10/1941 [address] [address] [place] [address] Care Teams Team MemberRelationshipSpecialtyStart DateEnd Luis Rogers MD [address] [facility] [place] [address] PCP - GeneralFamily Medicine08/02/22
--- OUTSIDE RECORDS SUMMARY | 2025-01-09 13:13 | XMS_ITS | Clinical Summary ---
Author Organization [facility] Address [address] [place] [address] Care Team Providers Care Auto Glass Worker Name Role Phone Haley Matos DO, George Cajetan Unavailable Luis Rogers MD Primary Care Provider [phone] LakkailamipathArmen manciaranneto Unavailable [phone] Haley Matos DO, George Cajetan Unavailable Luis Rogers MD Unavailable [phone] Allergies Active AllergyReactionsCriticalityNoted QafmSjhysigbUycwnieVrcofkjRtxo69/24/2013 Decongest Multi-ActionOther: See Dibtcklq33/24/2023PenicillinsUnknownHigh 09/13/20127831ZsxlxbhnukXjcshkountb42/24/2023 Dizziness PropoxypheneRash,QravepdGhen73/24/2023 Headache QuinammGI Upset05/14/2022 Medications MedicationSigDispense QuantityRefillsLast FilledStart DateEnd DateStatus citalopram hydrobromide (CELEXA) 10 mg tablet Take 10 mg by mouth once daily. Treat Xhxadeisho85/09/2023ctive diclofenac, EC, (VOLTAREN) 75 mg EC tablet Take 75 mg by mouth twice daily. For Arthritis pain03/24/2022ctive isosorbide mononitrate ER (IMDUR) 30 mg 24 hr tablet Take 30 mg by mouth once daily. 1 tablet daily in the AM on an empty stomach Treat for Poiays0603/21/2022ctive levothyroxine (SYNTHROID) 75 mcg tablet Take 75 mcg by mouth once daily. Patient takes 1 tablet in the AM03/18/2022 Active HYDROcodone-acetaminophen (NORCO) 5-325 mg per tablet Take 1 tablet by mouth twice daily as needed.04/29/2022ctive metoprolol succinate ER (TOPROL XL) 50 mg 24 hr tablet Take 50 mg by mouth twice daily.03/24/2022ctive hydroCHLOROthiazide 25 mg tablet Take 25 mg by mouth once daily.Active liothyronine (CYTOMEL) 25 mcg tablet Take 25 mcg by mouth once daily.Active NITROGLYCERIN ORAL Take 0.4 mg by mouth three times daily. 1 tablet by mouth 3x daily As needed for chest painActive cyclobenzaprine (FLEXERIL) 5 mg tablet Take 5 mg by mouth twice daily as needed for muscle spasm.Active aspirin, enteric coated (ASPIRIN, ENTERIC COATED) 81 mg EC tablet Take 81 mg by mouth once daily.Active MULTIVITAMIN ORAL Take by mouth. Equate with Lycopene Complete MultivitaminActive calcium carbonate/vitamin D3 (CALTRATE 600 + D ORAL) Take by mouth twice daily.Active glucosamine HCl/S-Adenosylmet (TRIPLE FLEX MOOD & JOINT JESSY-E ORAL) Take by mouth twice daily. Tablet contains Glucosamine 1500 mg Chodroitin 800 mg MSM 750 mg 1 tablet twice daily am and pmActive Flaxseed Oil (OMEGA-3 FLAXSEED OIL) 1,000 mg cap Take 1,000 mg by mouth once daily.Active fexofenadine (MALORIE ALLERGY) 180 mg tablet Take 180 mg by mouth once daily.Active MAGNESIUM AMINO ACID CHELATE ORAL Take 250 mg by mouth once daily. At bedtimeActive melatonin 3 mg capsules Take 3 mg by mouth daily at bedtime.Active acetaminophen (TYLENOL EXTRA STRENGTH) 500 mg tablet Take 500 mg by mouth twice daily.Active Capsaicin (SALONPAS-HOT) 0.025 % ptmd Apply to affected area.Active Active Problems ProblemNoted DateDiagnosed DateSpinal stenosis, lumbar region with neurogenic xxlhqbmpndip34/01/2023Obesity, Class I, BMI 30-34.9009/21/2022Scoliosis, ikjlpqylxis37/19/2023 Immunizations ImmunizationAdministration DatesNext Dueinfluenza (aIIV3) vaccine, age 65+ yr, trivalent, PF (FLUAD)11/29/2019influenza (ccIIV4) vaccine, age 6+ mo, quadrivalent, PF (FLUCELVAX)12/02/2021influenza vaccine, unspecified formulation 11/28/2020neumococcal conjugate (PCV13) vaccine, 13 valent (PREVNAR 13) 11/12/2016zoster (ZVL) vaccine, live (ZOSTAVAX)05/27/2017 Social History Tobacco UseTypesPacks/DayYears UsedDateSmoking Tobacco: NeverSmokeless Tobacco: Never Tobacco Cessation:Counseling Given: Not Answered Alcohol UseStandard Drinks/WeekCommentsNever0 (1 standard drink = 0.6 oz pure alcohol)PHQ-2AnswerDate RecordedPHQ-2 rkbqh228rea Deprivation Index AnswerDate RecordedNational Score (1-100), lower number is lower risk63 09/21/2022State Score (1-10), lower number is lower zwbv512ata from: https://www.neighborhoodatlas.medicine.[facility].edu/. Last address used for yyatqbhqfmd[address] [facility] [address] [address]/21/2022CommentsUnknownSex and Gender InformationValueDate RecordedSex Assigned at BirthNot on fileLegal SexFemale 01/01/2019 11:59 AM ESTGender IdentityNot on fileSexual OrientationNot on file Last Filed Vital Signs Vital SignReadingTime TakenCommentsBlood Rfncnbtt880/6008 12:51 PM EDT Xmkid687009/21/2022 12:51 PM EDTTemperature--Respiratory Rate--Oxygen Saturation 99%05/14/2022 2:22 PM EDTInhaled Oxygen Concentration--Sdoupt78.4 kg (168 lb 6.4 oz)05/14/2022 2:22 PM TEFSbzkkj142.4 cm (5')05/14/2022 2:22 PM EDTBody Mass Index32.8905/14/2022 2:22 PM EDT Plan of Treatment Health MaintenanceDue DateLast DoneCommentsAnxiety Lflbhshro36/10/1958Depression Bliagwsuz90/10/1958DTaP,Tdap,Td Vaccine (1 - Tdap)04/30/1958Diabetes Screening 04/30/1984Medicare Annual Wellness Visit04/21/2004Bone Density Screening 04/30/2004RSV Vaccine (1 - 1-dose 75+ series)04/30/2014Shingrix Vaccine (2 of 3) Pneumococcal Vaccine: 50+ (2 of 2 - PCV20 or PCV21) Advance Directive Snuehblail32/01/2025Covid-19 Vaccine ( season)/, 06/04/2021, 12/13/2020, Additional history existsInfluenza Vaccine (#1), 11/28/2020, 11/29/2019 Insurance MemberSubscriberPlan / Payer (Effective 2004-Present)Name:Alexa Delgado Member ID:[id number] Relation to Subscriber:SelfName:Alexa Delgado Subscriber ID:[id number] Payer ID:Not on file Group ID:Not on file Type:Medicare Address: [place] [id number] Care Teams Team MemberRelationshipSpecialtyStart Date Luis Rogers MD [address] [place] [address] PCP - GeneralFamily Medicine05/14/22 Arsh De Leon Jr., DO [address] [place] [address] [address] [place] [address] ReferringOrthopedics05/03/22 Porsha Garcia [address] [phone] Pain Management05/14/22 Arsh De Leon Jr., DO [address] [facility] [address] [place] [address] Orthopedic05/14/22 Luis Rogers MD [address] [place] [address] ReferringFamily Medicine08/11/22
--- OUTSIDE RECORDS SUMMARY | 2025-01-09 13:13 | XMS_ITS | CCD ---
Author Organization [facility] Providers Care Driver Guide Name Role Phone PHYSICIAN, DEFAULT Unavailable Unavailable [...] Unavailabl e REINECK, DR PEPE De La Roas Admitting Unavailabl e HOY ., DR MOJICA [...] Unavailable HOY ., DR MOJICA Consulting Unavailable [place], DR HERMES Jean Baptiste Consulting Unavailable LATANYA [...] Unavailable Galina Palmer MD Primary Care Provider [phone] Galina Palmer MD Attending Provider [phone] Ishmael MEANS, Lyn Adams Attending Unavailable Ishmael [...] of OnsetReaction(s) Facility (9 sources)Codeine; Translations: [CODEINE]Drug Kvqttmj29-10-7867Cltjnsy, Unknown (qualifier value)[facility] (4 sources)Penicillins; Translations: [PENICILLINS]Drug Rweqfof90-54-5648Qtkusqc [facility] (6 sources)pregabalin; Translations: [PREGABALIN]Drug Rkjlqkx12-84-0447 Intolerance, Unknown (qualifier value)[facility] Work Phone: (7 sources)Propoxyphene; Translations: [PROPOXYPHENE]Drug Tbigawd65-30-8160Cpwb, Unknown, GI intolerance, Headache, Unknown (qualifier value)[facility] (4 sources)quiNINE; Translations: [QUINAMM]Drug Gsooasp55-34-1875XO Upset [facility] (5 sources)Decongest Multi-Action; Translations: [Decongest Multi-Action]Drug Usuesfm58-50-3429Bxvac: See CommentsWilson Memorial Hospital (1 source)Acetaminophen / HYDROcodoneDrug AllergyThe [facility] (2 sources)CodeineDrug Rnbudmd88-61-8261YkzAv[facility] (3 sources)Fluconazole; Translations: [Diflucan]Drug AllergyThe [facility] (2 sources)PenicillinsDrug allergy (disorder)32-07-1155Mqo [facility] (3 sources)pregabalin; Translations: [Lyrica]Drug AllergyThe [facility] (4 sources)Propoxyphene; Translations: [Darvon]Drug AllergyAv[facility] (1 source)quiNINEDrug AllergyThe [facility] (1 source)FluconazoleAllergy to ztpcahpos06-26-7068YzdsbrbBSET Healthcare (1 source)PenicillinsPropensity to adverse ejgihefmk14-61-6477ShrfclwBKPT Healthcare (1 source)PregabalinPropensity to adverse xklunrljt17-05-5501EqpytzcjlCFJZ Healthcare (1 source)PseudoephedrineDrug Vovprrh30-43-0998FSPA Healthcare (5 sources)quiNINE; Translations: [quinine]Drug Oveyywt74-09-7855MA intolerance, Headache, Dizziness, Unknown (qualifier value)[facility] (2 sources)Fluconazole; Translations: [fluconazole]Drug AllergyUnknown (qualifier value)[facility] (4 sources)Penicillin; Translations: [penicillin]Drug AllergyUnknown (qualifier value)[facility] Medications Current Medications MedicationDrug Class(es)DatesSig (Normalized)Sig (Original)Tylenol (6 sources)Start: 41-64-9934Soyycbm Oral, Refills(s) 0 Start Date: 10/10/24 Status: Ordered Repeat number: 1acetaminophen (Tylenol) 500 MG tablet Take by mouth. ActiveComment on above:Take 500 mg by mouth twice daily.acetaminophen 325 mg / HYDROcodone bitartrate 5 mg oral tablet (6 sources)Opioid AgonistStart: 09-89-7873jrci 1 tablet by mouth every six hours [place] 325 mg-5 mg oral tablet tab(s), Oral, q6hr, Refill(s) 0 Start Date: 10/10/24 Status: Ordered Repeat number: 1Start: 34-41-2234tgcf 1 tablet by mouth twice daily as neededHYDROcodone-acetaminophen ([place]) 5-325 MG tablet 1 tablet as needed Orally twice daily 04/29/2022 ActiveComment on above:Take 1 tablet by mouth twice daily as needed.[facility] 24 Hour (2 sources)Start: 97-50-8323Nqgerbp 24 Hour Refills(s) 0 Start Date: 10/10/24 Status: Ordered Repeat number: 1Aspir 81 (2 sources)Start: 79-18-3056yukx 1 mg by mouth once dailyAspir 81 [...] mg by mouth once daily.Caltrate (4 sources)Start: 52-55-7775oyzf 1 mg by mouth once dailyCaltrate mg, Oral, Daily, Refills(s) 0 Start Date: 10/10/24 Status: Ordered Repeat number: 1Start: 15-65-5049Ivvaytkd 600 + D Oral, BID, Refill(s) 0 Start Date: 10/10/24 Status: Ordered Repeat number: 1Calcium Carbonate / Vitamin D (1 source)Calcium Carbonate-Vitamin D (CALTRATE 600+D PO) Take by mouth twice a day. MbanirLljmeab-Azbzbpy-Ekgmjo Edwar (SALONPAS TD) (1 source)Lmuuywp-Gkgffap-Bfumyk Edwar (SALONPAS TD) Place on the skin Active citalopram 10 mg oral tablet (6 sources)Serotonin Reuptake InhibitorStart: 12-81-6250kxqm 1 mg by mouth once dailycitalopram 10 mg Tab mg tab(s), Oral, Daily, Refills(s) 0 Start Date: 10/10/24 Status: Ordered Repeat number: 1Start: 63-08-8065dyxb 1 tablet by mouth once dailycitalopram hydrobromide (CELEXA) 10 mg tablet Take 10 mg by mouth once daily. Treat Depression 0 03/01/2022 ActiveComment on above:Take 10 mg by mouth once daily. Treat Depressioncyclobenzaprine hydrochloride 5 mg oral tablet (6 sources)Muscle RelaxantStart: 38-61-3788npqw 1 mg by mouth three times daily [...] release oral tablet (6 sources)Nonsteroidal Anti-inflammatory DrugStart: 36-11-4421udwn 1 mg by mouth twice dailydiclofenac sodium 75 mg Oral EC Tab mg tab(s), Oral, BID, Refills(s) 0 Start Date: 10/10/24 Status: Ordered Repeat number: 1Start: 83-15-7207lnzo 1 tablet by mouth twice daily for paindiclofenac, EC, (VOLTAREN) 75 mg EC tablet Take 75 mg by mouth twice daily. For Arthritis pain 0 03/24/2022 Activediclofenac (Voltaren) 75 MG EC tablet every 12 (twelve) hours. Active Comment on above:Take 75 mg by mouth twice daily. For Arthritis painferrous sulfate 325 mg delayed release oral tablet (3 sources)Start: 65-11-6717xeev 1 mg by mouth once dailyferrous sulfate 325 mg oral enteric coated tablet mg tab(s), Oral, Daily, Refills(s) 0 Start Date: Status: Ordered Repeat number: 1Start: 21-11-5870ayon 1 tablet by mouth in the morningferrous sulfate 325 (65 Fe) MG tablet Take 1 tablet by mouth in the morning and 1 tablet before bedtime. 09/16/2023 Activefexofenadine hydrochloride 180 mg oral tablet (5 sources)Histamine-1 Receptor Antagonist End: 02-92-4060wzlvaxedgjtz ([facility]) 180 MG tablet [facility] 12/06/2023 Discontinued (Duplicate order)Comment on above:Take 180 mg by mouth once daily. flax oral capsule (2 sources)Start: 20-88-4746jnbo oral capsule Refill(s) 0 Start Date: 10/10/24 Status: Ordered Repeat number: 1gabapentin 100 mg oral capsule (2 sources)Anti-epileptic AgentStart: 17-06-6256fqic 1 mg by mouth three times dailygabapentin 100 mg Cap mg cap(s), Oral, TID, Refills(s) 0 Start Date: 10/10/24 Status: Ordered Repeatnumber: 6Qvipqjnotyk-Zlsifiwqcoo-LOW (Triple Flex) 500-400-125 MG tablet (1 source)take 1 tablet by mouth twice daily at mealtime Zxupzbnodll-Slrgpqzwscz-AMQ (Triple Flex) 500-400-125 MG tablet 1 tablet with meals Orally twice daily for 30 days Zohinq86 hr isosorbide mononitrate 30 mg extended release oral tablet (6 sources)Nitrate VasodilatorStart: 21-82-0539wqkm 1 mg by mouth once daily in the morningisosorbide mononitrate 30 mg ER Tab mg tab(s), Oral, qAM, Refills(s) 0 Start Date: 10/10/24 Status: Ordered Repeat number: 1Start: 60-48-1860rmmg 1 tablet by mouth in the morning, then take 1 tablet by mouth every twenty-four hoursisosorbide mononitrate ER (Imdur) 30 MG 24 hr tablet Take 30 mg by mouth in the morning. 03/21/2022ctiveComment on above:Take 30 mg by mouth once daily. 1 tablet daily in the AM on an empty stomach Treat for Anginalevothyroxine sodium 0.075 mg oral tablet (6 sources)l-ThyroxineStart: 42-12-8694recf 1 tablet by mouth once daily levothyroxine 75 mcg (0.075 mg) Tab mcg tab(s), Oral, Daily, Refills(s) 0 Start Date: 10/10/24 Status: Ordered Repeat number: 1Start: 75-04-9783cgasytbzupzjg (Synthroid, Levoxyl) 75 MCG tablet 1 (one) time each day at the same time. 03/18/2022ctiveComment on above:Take 75 mcg by mouth once daily. Patient takes 1 tablet in the AMlinseed oil 1000 mg oral capsule (4 sources)Flaxseed, Linseed, (Flax Seed Oil) 1000 MG capsule as directed Orally ActiveComment on above:Take 1,000 mg by mouth once daily.liothyronine sodium 0.025 mg oral tablet (6 sources)l-TriiodothyronineStart: 34-09-6792nkfr 1 tablet by mouth once daily liothyronine [...] zinc Activemagnesium amino acid chelate (5 sources)Start: 29-46-4340mijvnsdhi amino acids chelate Oral, Refills(s) 0 Start Date: 10/10/24 Status: Ordered Repeat number:1take 250 mg by mouth once daily at bedtimeMAGNESIUM AMINO ACID CHELATE ORAL Take 250 mg by mouth once daily. At bedtime 0 ActiveComment on above:Take 250 mg by mouth once daily. At bedtimeMelatonin (6 sources)Start: 52-13-8146Gfhatixgm Once a day (at bedtime), Refills(s) 0 [...] extended release oral tablet (6 sources)beta-Adrenergic BlockerStart: 47-68-6370axhi 1 mg by mouth once daily metoprolol succinate 50 mg ER Tab mg tab(s), Oral, Daily, Refills(s) 0 Start Date: 10/10/24 Status: Ordered Repeat number: 1Start: 37-08-3935bhie 1 tablet by mouth twice dailymetoprolol succinate ER (TOPROL XL) 50 mg 24 hr tablet Take 50 mg by mouth twice daily. 0 03/24/2022 ActiveComment on above:Take 50 mg by mouth twice daily.24 hr mirabegron 25 mg extended release oral tablet (1 source)beta3-Adrenergic AgonistStart: 11-14-2024 End: 05-07-8492kocl 1 tablet by mouth once dailyMyrbetriq 25 mg oral tablet, extended release 25 mg = 1 tab(s), Oral, Daily, X 30 day(s), # 30 tab(s), Refills(s) 3, Pharmacy: [facility]/pharmacy #[id number], 150, cm, 11/14/24 15:17:00 EDT, Height/Length Dosing, 79.9, kg, 11/14/24 15:17:00 EDT, Weight Dosing Start Date: 11/14/24 Stop Date: 03/14/25 Status: Ordered Quantity: 30.0 Unit: tab(s) Repeat number: 4 Indications: Overactive bladder;Multi Vitamin+ (2 sources)Start: 40-11-9104Jxzmv Vitamin+ Refill(s) 0 Start Date: 10/10/24 Status: Ordered Repeat number: 1Multiple Vitamin (multivitamin) tablet (1 source)take 1 tablet by mouth in the morningMultiple Vitamin (multivitamin) tablet Take 1 tablet by mouth in the morning. ActiveNitroglycerin (6 sources)Nitrate VasodilatorStart: 99-34-4482vvotzxxeznwsg Refills(s) 0 Start Date: 10/10/24 Status: Ordered [...] 3x daily As needed for chest pain [place]-3 1000 mg oral capsule (2 sources)Start: 02-79-0870Vdrrn-3 1000 mg oral capsule mg cap(s), Oral, Refills(s) 0 Start Date: 10/10/24 Status: Ordered Repeat number: 1Osteo Bi-Flex Triple Strength (2 sources)Start: 05-34-0571Zujsj Bi-Flex Triple Strength Refill(s) 0 Start Date: 10/10/24 Status: Ordered Repeat number: 1oxybutynin chloride 5 mg oral tablet (2 sources)Cholinergic Muscarinic AntagonistStart: 18-76-1418ywon 1 tablet by mouth once dailyoxybutynin 5 mg Tab 5 mg = 1 tab(s), Oral, Daily, # 30 tab(s), Refills(s) 0, Pharmacy: [facility]/pharmacy#[id number], 150, cm, 10/10/24 10:18:00 EDT, Height/Length Dosing, 80, kg, 10/10/24 10:18:00 EDT, Weight Dosing Start Date: 10/10/24 Status: Ordered Quantity: 30.0 Unit: tab(s) Repeat number: 1 Indications:Overactive bladder;pantoprazole 40 mg delayed release oral tablet (3 sources)Proton Pump InhibitorStart: 50-85-5592ufdc 1 mg by mouth once daily Pantoprazole [address] Tab mg tab(s), Oral, Daily, Refills(s) 0 Start Date: 10/10/24 Status: Ordered Repeat number: 1Start: 17-24-8709odnp 1 tablet by mouth once dailypantoprazole (ProtoNix) 40 MG EC tablet Take 40 mg by mouth Daily 10/13/2023 ActivePotassium Chloride (2 sources)Start: 88-01-6702wybgwkgat chloride Refills(s) 0 Start Date: 10/10/24 Status: Ordered Repeat number: 1Salonpas Pain Patch (2 sources)Start: 49-69-6451Xlfyzdlv Pain Patch Refill(s) 0 Start Date: 10/10/24 [...] ActiveComment on above:Take by mouth twice daily.capsaicin 0.61024 mg/mg medicated patch (3 sources)Capsaicin (SALONPAS-HOT) 0.025 [...] DateEpisodic/ChronicAnxiety disorders (2 sources)Mixed anxiety and depressive pcikrqzb44-81-0895EaellfePbscoxqxd and vision defects (1 source)Unspecified visual loss; Translations: [UNSPECIFIED VISUAL LOSS]Onset: 93-33-0831BrwhfxaSfkbnfd dysrhythmias (2 sources)Supraventricular vjvwkkacddz77-70-4818HoynlfnGtdkxcvhev heart failure; nonhypertensive (5 sources)Unspecified diastolic (congestive) heart failure; Translations: [Congestive heart failure]Onset: 016766-48-8600JqkcditHamgxajf atherosclerosis and other heart disease (4 sources)Coronary iaduqsamnxmlrvdb39-18-8935WfizuqaVeyqgaerpx and other anemia (2 sources)Anemia, unspecified; Translations: [ANEMIA UNSPECIFIED]Onset: 32-19-2300ZdgyjolrTpkeujos, dementia, and amnestic and other cognitive disorders (4 sources)Oomfkdlp76-79-6413EklkvuqKppzvccl of white blood cells (4 sources)Kflsuswyrei81-56-1581YejulomVgplftxtj of lipid metabolism (7 sources)Hyperlipidemia, unspecified; Translations: [Hyperlipidemia]Onset: 613864-21-5607VhmivanKoxamftbe hypertension (8 sources)Essential (primary) hypertension; Translations: [Essential hypertension]Onset: 358947-96-9472AsxyjdlSovie and electrolyte disorders (10 sources)Dehydration; Translations: [Hypo-osmolality and hyponatremia]Onset: 83-86-8745SgvykadfOspjuqpgtljts symptoms and ill-defined conditions (4 sources)Stress incontinence (female) (male); Translations: [Female stress incontinence]Onset: 63-22-0897YviuvkoJrhwcfakbijmx symptoms and ill-defined conditions (12 sources)Dysuria; Translations: [Other abnormal findings in urine]Onset: 01-92-0539UhigmktwVuidymlgrcpn with complications and secondary hypertension (4 sources)Hypertensive heart disease with heart failure; Translations: [HTN HEART DISEASE W/HEART FAIL]Onset: 39-31-0569CzhnpxiCscwhbhklrre breast conditions (1 source)Fibrocystic disease of breast; Translations: [Diffuse cystic mastopathy of unspecified breast]Onset: 786588-79-4712VxzbtajCyxeogglaat chest pain (3 sources)Chest pain, unspecified; Translations: [Chest pain]Onset: 11-13-2021 20-20-7389ZtexuesdDqtolqphawl deficiencies (1 source)Vitamin D deficiency, unspecified; Translations: [VITAMIN D DEFICIENCY UNSPECIFIED]Onset: 08-69-0287NqrmfvfDkcr wounds of extremities (2 sources)Laceration of upper vdt96-28-3692VhtpgsviXzikxfzeldunjg (8 sources)Bilateral primary osteoarthritis of hip; Translations: [Unspecified osteoarthritis, unspecified site]Onset: 743050-58-8140UobhfqaKocdwfpmvyav (2 sources)Senile jnrjvakpnjkn94-62-0658TdfacxzOkseu acquired deformities (4 sources)Scoliosis of lumbar spine; Translations: [Scoliosis, unspecified] Onset: 53-01-9426RqbgywiBnlaz acquired deformities (5 sources)Scoliosis deformity of spine; Translations: [Scoliosis, unspecified] Onset: 638727-82-9132ExpwwxbXauri acquired deformities (1 source)Scoliosis, unspecified; Translations: [SCOLIOSIS UNSPECIFIED]Onset: 45-27-2480UmwpfjnWdlol acquired deformities (1 source)Lumbar spondylolisthesis; Translations: [Spondylolisthesis, lumbar region]EpisodicOther bone disease and musculoskeletal deformities (1 source)Idiopathic scoliosis of lumbar spine; Translations: [Other idiopathic scoliosis, lumbar region]ChronicOther circulatory disease (2 sources)Easy bavdejan77-74-1730RoaocnzqCnuiq connective tissue disease (1 source)Presence of right artificial knee joint; Translations: [PRESENCE RT ARTIFICIAL KNEE JOINT]Onset: 49-46-2575JeqlfmeFwili connective tissue disease (5 sources)Other muscle spasm; Translations: [OTHER MUSCLE SPASM]Onset: 11-42-7602UxsuqhyaRshll diseases of bladder and urethra (2 sources)Detrusor overactivity; Translations: [Overactive bladder]Onset: 82-39-7351NnqbsplFbkko diseases of bladder and urethra (2 sources)Overactive zckpbti19-75-9894AccdirrEwxgu diseases of veins and lymphatics (2 sources)Stasis wcwdwlcoes08-26-4508XpjbddfwBmadq ear and sense organ disorders (2 sources)Otitis fsxazxy09-96-7490OsndredDucwp nervous system disorders (4 sources)Other specified mononeuropathies of right lower limb; Translations: [OTH SPEC MONONEUROPATH RT LOW LIMB]Onset: 26-56-7026CzlauwvMepul nervous system disorders (4 sources)Other specified mononeuropathies; Translations: [OTHER SPECIFIED MONONEUROPATHIES]Onset: 44-47-7507MjarkpoCjjhp nervous system disorders (1 source)Other chronic pain; Translations: [OTHER CHRONIC PAIN]Onset: 28-96-1737LsccrigXnenn non-traumatic joint disorders (2 sources)Allergic arthritis of the shoulder dsxpyx71-29-8629HziicigWweao non- traumatic joint disorders (2 sources)Bilateral arthritis of -97-4032ZcfonfkHzunq non-traumatic joint disorders (5 sources)Pain in right hip; Translations: [PAIN IN RIGHT HIP]Onset: 05-13-2022 EpisodicOther nutritional; endocrine; and metabolic disorders (4 sources)Obese class I; Translations: [Obesity, unspecified]Onset: 09-21-2022 91-09-3591GpqjxfsYabsk nutritional; endocrine; and metabolic disorders (2 sources)Body mass index 30+ - bfkhagi20-72-0660RdgytieRfahs nutritional; endocrine; and metabolic disorders (2 sources)Gsajltz76-95-0560YyekrtsXcuox screening for suspected conditions (not mental disorders or infectious disease) (6 sources)Encounter for screening mammogram for malignant neoplasm of breast; Translations: [Patient encounter status]Onset: 77-30-6019HmkrcrhjYimtc upper respiratory disease (2 sources)Allergic icoqmmja30-92-9096LnnokwgWxobl upper respiratory disease (2 sources)Seasonal allergic gjiuutab19-28-1297FawqujvIcryaqlph heart disease (2 sources)Secondary pulmonary ezmujnhjbwcs34-20-7709ZlzkmbbBrfwwbbm codes; unclassified (2 sources)Obstructive sleep apnea sxlzqivf81-82-7344StfehqnQkfwaqgt codes; unclassified (2 sources)Sleep nyyap12-41-7362KydcbpjGrwvupfa codes; unclassified (2 sources)Zdfzyir42-02-6138SgwxrxukSqcdclvl codes; unclassified (2 sources)Clouded zcvstahzflohu01-62-7011ZvmcwbshGysmauct codes; unclassified (2 sources)Jgrpx53-20-0101UxfjxnaaKdqewudb codes; unclassified (4 sources)Poor short-term bulipr41-28-5936FkhzleyaWdcifnlbclq failure; insufficiency; arrest (adult) (2 sources)Chronic respiratory hnuplsg08-75-9730PjkynhfPdmjwqmeeva; intervertebral disc disorders; other back problems (20 sources)Lumbar spondylosis; Translations: [Spondylosis without myelopathy or radiculopathy, lumbar region]Onset: 01-28-8010YremtjmKwpcwrvifoy; intervertebral disc disorders; other back problems (18 sources)Chronic low back pain; Translations: [Lumbago with sciatica, right side]Onset: 67-91-2264WqjfurpsIgngulg disorders (13 sources)Hypothyroidism, unspecified; Translations: [Thyrotoxicosis, unspecified without thyrotoxic crisis or storm]Onset: ChronicTransient cerebral ischemia (2 sources)Transient cerebral -05-8877NyyllqfTokqqrphqptv (4 sources)LOW BACK PAIN, UNSPECIFIED; Translations: [LOW BACK PAIN, UNSPECIFIED]Onset: 97-81-3004Mebvtfqhdiru (1 source)PERSONAL HISTORY OF COVID-19; Translations: [PERSONAL HISTORY OF COVID-19]Onset: 70-52-8466Iaiudbjjxgaa (1 source)CONTACT W/AND (SUSP) EXPOS COVID-19; Translations: [CONTACT W/AND (SUSP) EXPOS COVID-19]Onset: 90-94-4442Tstsebabeoib (2 sources)Arthropathies and related disorders (navigational concept)10-10-2024 Unclassified (2 sources)Asymptomatic microscopic -54-4011Ygesl infection (1 source)COVID-19; Translations: [COVID-19]Onset: 11-13-2021 Past or Other Problems Problem ClassificationProblemDateDocumented DateEpisodic/ChronicConditions associated with dizziness or vertigo (4 sources)Dizziness and giddiness; Translations: [DIZZINESS AND GIDDINESS] Onset: 40-21-4654HhokkiajLazjbwra mellitus without complication (1 source)Other abnormal glucose; Translations: [OTHER ABNORMAL GLUCOSE]Onset: 10-76-5071LqpnobldQkmclrh and fatigue (4 sources)Weakness; Translations: [WEAKNESS]Onset: 41-02-3824PkdsvnltOtymnm and vomiting (1 source)Nausea with vomiting, unspecified; Translations: [NAUSEA WITH VOMITING UNSPECIFIED]Onset: 83-36-2489VfkefhfqQxlul aftercare (1 source)MCFP (current) use of aspirin; Translations: [RESIDENTIAL CURRENT USE OF ASPIRIN]Onset: 95-62-9827SesawofwJnagz aftercare (1 source)Other mcc (current) drug therapy; Translations: [OTH RESIDENTIAL CURRENT DRUG THERAPY]Onset: 59-52-3129SpnewjzwZllvo bone disease and musculoskeletal deformities (1 source)Other specified disorders of bone density and structure, unspecified site; Translations: [OTH D/O BONE DEN STRUCT UNS SITE]Onset: 09-39-7498Symlrmfg Other circulatory disease (1 source)Personal history of transient ischemic attack (TIA), and cerebral infarction without residual deficits; Translations: [PERS HX TIA AND CI NO RESID DEFICIT]Onset: 13-46-0866PqydolttQtfwd connective tissue disease (1 source)Sarcopenia; Translations: [SARCOPENIA]Onset: 20-54-6053GnirxaciSfwjs gastrointestinal disorders (1 source)Diarrhea, unspecified; Translations: [DIARRHEA UNSPECIFIED]Onset: 19-04-0955NdcjrbmoVzzid lower respiratory disease (1 source)Chronic cough; Translations: [CHRONIC COUGH]Onset: 18-33-6322Rqzsilil Other non-traumatic joint disorders (5 sources)Pain in right knee; Translations: [PAIN IN RIGHT KNEE]Onset: 70-28-8481VcxhmwijKzilhqsg codes; unclassified (1 source)Acquired absence of both cervix and uterus; Translations: [ACQUIRED ABSENCE BOTH CERVIX AND UTERUS]Onset: 63-63-1380FxaqpfpvSfhhkkvv codes; unclassified (1 source)Acquired absence of other specified parts of digestive tract; Translations: [ACQ ABSENCE OTH PART DIGESTV TRACT]Onset: 81-57-6611Pppckxzq Unclassified (1 source)LOW BACK PAIN, UNSPECIFIED; Translations: [LOW BACK PAIN, UNSPECIFIED] Onset: 04-06-2022 Results Test NameValueInterpretationReference RangeFacilityUrology Office/Clinic Noteon 63-88-0973Rabkmat Office/Clinic NoteUrology Office/Clinic Note Chief Complaint Pt [...] day(s), # 30 tab(s), Refills(s) 3, Pharmacy: [facility]/pharmacy #[id number], 150, cm, 11/14/24 15:17:00 EDT, Height/Length Dosing, 79.9, kg, 11/14/24 15:17:00 EDT,Weight Dosing 2. Incomplete bladder emptying (R33.9: Retention of urine, unspecified) PVR (cc): 10/10/24 - 146 11/14/24 - PVR improved. Pt reassured she is emptying better. -Cont sx monitoring Ordered: 08742 Measure Post Void residual urine and/or bladder [...] Urnls Dip Stick Auto w/o Microscopy POC 53102 3. NILESH (stress urinary incontinence, female) (N39.3: [...] Cervical spondylosis Chest pain (more content not included)...NormalSelect [facility] Comment on above:Result Comment: Electronically Signed By: Jacinta Long PA-C\.br\Date and Time Signed: 11/14/24 16:19 EDTUrinalysis with Microon 45-44-6572Lmkhk (U)ColorlessAbnormalYCleveland Clinic Akron GeneralComment on above:Result Comment: Microscopic readings are only performed on those samples that meet specific criteria set forth by [facility]. Performed By: #### [id number] #### [facility] [address], [place] [address]Umhhnyf (U) [Mass/Vol]NegativeNormalNegativeSelect Medical Trihealth Rehabilitation HospitalComment on above:Performed By: #### [id number] #### [facility] [address], [place] [address]Qhnerxf Ql (U)NegativeNormalNegCleveland Clinic [facility] Comment on above:Performed By: #### [id number] #### [facility] [address], [place] [address]RQ BloodTraceAbnormalNegativeSelect Medical Trihealth Rehabilitation HospitalComment on above:Performed By: #### [id number] #### [facility] [address], [place] [address]TM ClarityClearNormalClearSelect Medical Trihealth Rehabilitation HospitalComment on above:Performed By: #### [id number] #### [facility] [address], [place] [address]IU Leuk EstNegativeNormalKeenan Private Hospital Comment on above:Performed By: #### [id number] #### [facility] [address], [place] [address]IZ NitriteNegativeNoGood Samaritan Hospital Comment on above:Performed By: #### [id number] #### [facility] [address], [place] [address]WX pH6.0Invalid Interpretation Code5.0-9.0[facility] HospitalComment on above:Performed By: #### [id number] #### [facility] [address], [place] [address]XJ ProteinNegativeNormalNegCleveland Clinic Ment[facility] Hospital Comment on above:Performed By: #### [id number] #### [facility] [address], [place] [address]AI Spec Grav1.006Invalid Interpretation Code1.005-1.030[facility] HospitalComment on above:Performed By: #### [id number] #### [facility] [address], [place] [address]TO UrobilinogenNegativeNormalNegCleveland Clinic Mentor HospitalComment on above:Performed By: #### [id number] #### [facility] [address], [place] [address]Hmrbasuftgmh (U) [Mass/Vol]NegativeNormalNegativeSelect Medical Trihealth Rehabilitation HospitalComment on above:Performed By: #### [id number] #### [facility] [address], [place] [address]OZ Spec DescClean CatchNormWadsworth-Rittman HospitalComment on above:Performed By: #### [id number] #### [facility] [address], [place] [address]Onjfz Cultureon 09-58-1836Jrmqedor identified Cx Nom (U)No Growth 2 Days PERFORMED BY: [facility] [address] [id number] PATHOLOGIST SUPERVISOR BINDERY BRAULIO CARDOZO M.D.[facility] Physician GroupComment on above: Performed By: #### CUU #### [facility] [address] [id number] USACNOVon 23-38-2551MKXBOqliwk Visit (NSADHC) ALEXA DELGADO ([id number]) 1940 F Date Time Provider Department 09/21/22 1:00 PM CAROLYN VANEGAS [facility] During your visit today, we [...] Physical Function Percentile 2 (more content not included)...NormalShelby Memorial HospitalXR LSPINE 2_3 VIEWSon 54-88-4181DI LSPINE 2_3 VIEWSEXAMINATION: XR LSPINE 2_3 VIEWS [...] Electronically authenticated by: HERMES SUAREZ Date: 2022-07-16 11:34[facility] [id number] Visit (SPMESH) ALEXA DELGADO ([id number]) 1940 F Date Time Provider Department 05/14/22 2:30 PM MARTY DOZIER [facility] During your visit today, we recorded the following information about you: Pulse Blood pressure Weight Height 72/minute 158/87 76.4 kg 1.524 m Marty Dozier DO 05/15/2022 10:02 PM Signed [facility] - Medical Spine Initial [...] Ratio: R>L low back Current Treatment: Medications [place] 5-325 mg BID - helps Diclofenac 75 [...] but still has pain -01/28/22 Noemi Sequeira [employer]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 [...] today. She has an evaluation at the [facility] tomorrow at the Spine Center. RECOMMENDATIONS: We will see the pat (more content not included)...Normal [facility] ClevelandCULTURE URINEon [id number] URINECulture Observations: LIGHT GROWTH OF MIXED GENITAL ALANIS. NO POTENTIAL PATHOGENS SEEN.NormalThe [facility] Medical CenterComment on above:Performed By: #### URCX ####[facility] Vgkitwiysf[address] [place], [place] [address]Dr. Yilan ChangUA RANDOM W/MICROSCOPICon [id number] SEENNormalNONE SEENAvita Health System Bucyrus Hospital Comment on above:Performed By: #### UAMIC ####[facility] Mmajlselqu[address] [place], [place] [address]Dr. Yilan ChangBilirubin Ql (U)Negative NormalNEGATIVEAvita Health System Bucyrus HospitalComment on above:Performed By: #### UAMIC ####[facility] Pwsajrvbki8[address] [place], [place] [address]Dr. Yilan ChangCASTNONE SEENNormalNONE SEENAvita Health System Bucyrus HospitalComment on above: Performed By: #### UAMIC ####[facility] Zfafufeyse6[address] [place], [place] [address]Dr. Yilan ChangClarity (U)CLEARNormalCLEARAvita Health System Bucyrus HospitalComment on above:Performed By: #### UAMIC ####[facility] Utmdaaxmty4064[address] [place], [place] [address]Dr. Yilan ChangColor (U) YELLOWNormalYELLOWHarrison Community Hospital HospitalComment on above:Performed By: #### UAMIC ####[facility] Xklmkblioc9[address] [place], [place] [address]Dr. Yilan ChangCrystals LM Nom (Urine sed)NONE SEENNormalNONE SEENAvita Health System Bucyrus HospitalComment on above:Performed By: #### UAMIC ####[facility] Zkcjyjqbfn29[address] [place], [place] [address]Dr. Yilan ChangEpithelial cells LM Ql (Urine sed)RARENormalNONE SEEN /RAREAvita Health System Bucyrus HospitalComment on above:Performed By: #### UAMIC ####[facility] Rtadlpkykb304[address] [place], [place] [address]Dr. Yilan ChangGlucose Ql (U)NegativeNormalNEGATIVEAvita Health System Bucyrus HospitalComment on above:Performed By: #### UAMIC ####[facility] Fkqpduojoo2669[address] [place], [place] [address]Dr. Benitalan Abdul Hemoglobin Ql (U)MODERATEAbnormalNEGATIVEThe [facility]enridge HospitalComment on above: Performed By: #### UAMIC ####[facility] Ndlxgmxmlt4826[address] [place], [place] [address]Dr. Yilan ChangKetones Ql (U)TRACEAbnormalNEGATIVEThe [facility]enridge HospitalComment on above:Performed By: #### UAMIC ####[facility] Drlmgjvmnz2144[address] [place], [place] [address]Dr. Yilan ChangLEUKOCYTES TRACEAbnormalNEGATIVEThe [facility]enridge HospitalComment on above:Performed By: #### UAMIC ####[facility] Mylwfrvqkg5454[address] [place], [place] [address]Dr. Yilan ChangMUCOUSNONE SEENNormalNONE SEENHarrison Community Hospital HospitalComment on above:Performed By: #### UAMIC ####[facility] Ikdvskihkt4206[address] [place], [place] [address]Dr. Grace ChangNitrite Ql (U)NegativeNormalNEGATIVE The [facility] HospitalComment on above:Performed By: #### UAMIC ####[facility] Ayisnkwexq7824[address] [place], [place] [address]Dr. Yilee ann ChangpH (U)5.0 [pH]Normal5-9The [facility]ridge HospitalComment on above:Performed By: #### UAMIC ####[facility] Thtrwprtfp195[address] [place], [place] [address]Dr. Grace OmwwnIMH6-4Ysajwl8-5Grg [facility] CenterComment on above: Performed By: #### UAMIC ####[facility] Feqmisrmxa2740[address] [place], [place] [address]Dr. Yilan FrankoSPEC GRAVITY1.638Xiwdfq3.005-<=1.025The [facility] HospitalComment on above:Performed By: #### UAMIC ####[facility] Qxajlqdiiz7914[address] [place], [place] [address]Dr. Yilan ChangUA PROTEINNegativeNormalNEGATIVE/ TRACEThe [facility]ackenridge HospitalComment on above: Performed By: #### UAMIC ####[facility] Ggxpyjgyak5398[address] [place], [place] [address]Dr. Benitalan ChangUrobilinogen Qn (U)0.2 {Ashley'U}/dL Normal0.2 - 1.0The [facility] CenterComment on above:Performed By: #### UAMIC ####[facility] B[address]fuobu[address] [address]Dr. Yilan ChangWBC0-2AbnormalNONE SEENThe [facility] CenterComment on above: Performed By: #### UAMIC ####[facility] Jqawxohldj3[address] [place], [place] [address]Dr. Benitalan ChangCBC AUTO DIFFon 34-25-3080XYYP #0.0 103/ulNormal0.0-0.1The [facility] CenterComhenry for[facility] on above:Performed By: #### CBC ####[facility] Iaqewrtbsg668[address] [place], [place] [address]Dr. Benitalee ann ChangBasophils/100 WBC (Bld)0.4 %Normal0.2-2.0The [facility] on above:Performed By: #### CBC ####[facility] Hldghqqxgk7908[address] [place], [place] [address]Dr.Yilan ChangEO #0.1 103/ulNormal0.0-0.7The [facility] CenterComhenry ford [facility] hospital on above:Performed By: #### CBC ####[facility] Huninmolln3835[address] [place], [place] [address]Dr.Benitalee ann ChangEosinophils/100 WBC (Bld)1.3 %Normal0.9-7.0The [facility] Hospitalment on above:Performed By: #### CBC ####[facility] Ytmjscxork[address] [place], [place] [address]Dr.Benitalan ChangErythrocyte distribution width (RBC) [Ratio]13.7 %Normal 11.0-15.0The [facility] on above:Performed By: #### CBC ####[facility] Ontpncgydn634[address] [place], [place] [address]Dr. Benitalee ann ChangHematocrit (Bld) [Volume fraction]37.2 %Eioewx32.0-48.0The [facility] CenterComment on above:Performed By: #### CBC ####[facility] [address]xs[address] [address]Dr.Grace ChangHemoglobin (Bld) [Mass/Vol]12.4 g/cQJsltmw40.0-16.0The [facility] CenterComment on above: Performed By: #### CBC ####[facility] Ifpqstrera1837[address] [place], [place] [address]Dr.Benitalee ann ChangIG #0.02 10e3/ulNormal0.00-0.03The [facility] CenterComment on above:Performed By: #### CBC ####[facility] Zfmefqyueq3420[address] [place], [place] [address]Dr.Benitalee ann AbdulIG %0.4 %Normal 0.0-0.5The [facility] CenterComment on above:Performed By: #### CBC ####[facility] Yuexrrpipn7478[address] [place], [place] [address]Dr.Grace AbdulLYMPH #0.8 103/ulCritically low1.2-3.8The [facility] CenterComment on above:Performed By: #### CBC ####[facility] Ohthokciiq8149[address] [place], [place] [address]Dr.Benitalee ann AbdulLymphocytes/100 WBC (Bld)13.9 %Critically low20.5-60.0 The [facility] CenterComment on above:Performed By: #### CBC ####[facility] Lzrhcqfjka57[address] [place], [place] [address]Dr.Grace AbdulMANUAL DIFF REQNONormalThe [facility] Medical CenterComment on above:Performed By: #### CBC ####[facility] Qupgwwtqdi727[address] [place], [place] [address]Dr. Grace AbdulMCH (RBC) [Entitic mass]30.5 ryKvhowa99.7-34.0The [facility] Comment on above:Performed By: #### CBC ####[facility] Ffwjgolrrv559[address] [place], [place] [address]Dr.Grace AbdulMCHC (RBC) [Mass/Vol]33.3 g/dL Vfoqdc70.9-35.2The [facility] HospitalComment on above:Performed By: #### CBC ####[facility] [address] [address]Dr. Grace AbdulMCV (RBC) [Entitic vol]91.4 cZXonrhj89.0-99.0The [facility] Comment on above:Performed By: #### CBC ####[facility] Fstezyzwjk9429[address] [place], [place] [address]Dr.Grace AbdulMONO #0.7 103/ulNormal0.3-0.8 The [facility] HospitalComment on above:Performed By: #### CBC ####[facility] Sbrzacaubz024[address] [place], [place] [address]Dr.Grcae Abdul Monocytes/100 WBC (Bld)13.5 %Critically high1.7-12.0The [facility] HospitalComment on above:Performed By: #### CBC ####[facility] Hlsoizvagk8101[address] [place], [place] [address]Dr.Grace AbdulNEUT #3.8 103/ulNormal1.4-6.5The [facility] HospitalComment on above:Performed By: #### CBC ####[facility] Iyarohzwqt944[address] [place], [place] [address]Dr.Benitalee ann FrankoNeutrophils/100 WBC (Bld)70.5 %Lyfjng36.0-75.0The [facility] HospitalComment on above:Performed By: #### CBC ####[facility] Kohnujcyky9676[address] [place], [place] [address]Dr.Benitalee ann AbdulPlatelet mean volume (Bld) [Entitic vol]9.0 fLCritically low 9.5-13.5The [facility] HospitalComment on above:Performed By: #### CBC ####[facility] Ycppzntaxj1500[address] [place], [place] [address]Dr. Grace AbdulPLT283 103/sbYxlquo280-500Zcv [facility] HospitalComment on above: Performed By: #### CBC ####[facility] Tjxjabvkgn9276[address] [place], [place] [address]Dr.Grace AbdulRBC4.07 106/ulCritically low4.20-5.40The [facility] CenterComment on above:Performed By: #### CBC ####[facility] Looldvrxch[address] [place], [place] [address]BxKem AbdulWBC5.4 103/ul Normal4.0-11.0The [facility] CenterComment on above:Performed By: #### CBC ####[facility] Kuumlrwhlt74[address] [place], [place] [address]KvLisette AbdulCT ABD/PELV W CONon 77-02-3696ZR ABD/PELV W CONEXAM: CT ABD/PELV W CON [...] Electronically authenticated by: EMILY NAVARRETE Date: 2022-04-04 16:59No[facility] URINE PROFILEon 77-37-0935Qbghguhxi Ql (U)NegativeNormal NEGATIVEAvita Health System Bucyrus HospitalComment on above:Performed By: #### ROBERT KIRKLAND ####[facility] [address]vg[address] [id number]. Yilan ChangClarity (U)CLEARNormalCLEARAvita Health System Bucyrus HospitalComment on above: Performed By: #### ROBERT KIRKLAND ####[facility] [address]dnt[address] [address]Dr. Yilan ChangColor (U)LT. YELLOWNormalYELLOWAvita Health System Bucyrus HospitalComment on above:Performed By: #### ROBERT KIRKLAND ####[facility] [address]ijfwbactv[address] [place], [place] [id number]. Yilan ChangERUAHD A micrscopic examination will be performed if indicated.NormalThe [facility] CenterComment on above:Performed By: #### ROBERT KIRKLAND ####[facility] Ulgazaclbv[address] [place], [place] [id number]. Yilan ChangGlucose Ql (U) NegativeNormalNEGATIVEAvita Health System Bucyrus HospitalComment on above:Performed By: #### ROBERT KIRKLAND ####[facility] Jbnvqazuva[address] [place], [place] [address]Dr. Yilan ChangHemoglobin Ql (U)SMALLAbnormalNEGATIVEAvita Health System Bucyrus Hospital Comment on above:Performed By: #### ROBERT KIRKLAND ####[facility] Oqhivqxvrq11[address] [place], [place] [address]Dr. Yilan ChangKetones Ql (U) NegativeNormalNEGATIVEAvita Health System Bucyrus HospitalComment on above:Performed By: #### ROBERT KIRKLAND ####[facility] Fcsolcvezs5[address] [place], [place] [address]Dr. Yilan ChangLEUKOCYTESTRACEAbnormalNEGATIVEAvita Health System Bucyrus HospitalComment on above:Performed By: #### ROBERT KIRKLAND ####[facility] [address]ocx[address] [id number]. Grace AbdulNitrite Ql (U)NegativeNormal NEGATIVEThe [facility] CenterComment on above:Performed By: #### ROBERT KIRKLAND ####[facility] [address]phcqpx[address] [id number]. Grace ChangpH (U)7.5 [pH]Normal5-9The [facility] CenterComment on above: Performed By: #### ROBERT KIRKLAND ####[facility] Mkvysqrnax028[address] [place], [place]Dr. Grace AbdulSPEC GRAVITY1.308Oajtdo9.005-<=1.025The [facility] CenterComment on above:Performed By: #### ROBERT KIRKLAND ####[facility] Sykkphjyjv28[address] [place], [place]Dr. Grace AbdulUA PROTEINNegativeNormalNEGATIVE/ TRACEThe [facility] HospitalComment on above: Performed By: #### ROBERT KIRKLAND ####[facility] Svuextcslj9397 [place], [place]Dr. Grace AbdulUR MICRO INDINDICATEDNormalThe [facility] CenterComment on above:Performed By: #### ROBERT KIRKLAND ####[facility] Yapmcdcyan11[address] [place], [place]Dr. Grace AbdulUrobilinogen Qn (U)0.2 {Ashley'U}/dLNormal0.2 - 1.0The [facility] CenterComment on above: Performed By: #### GINA KIRKLANDRO ####[facility] Ilqknwguhj26[address] [place], [place]Dr. Grace AbdulLIPASEon 34-40-0778Xgabmo [Catalytic activity/Vol]115.0 U/RWfompv10.0-393.0The [facility] CenterComment on above: Performed By: #### CVDTBH #### [facility] [address] [place], [place] [address] Dr. Grace Reno 14(COMP METB)on 77-23-2199Qxfnoex [Mass/Vol]3.6 g/dLNormal 3.4-5.0The [facility] CenterComment on above:Performed By: #### CVDTBH #### [facility] [address] [place] [address] Dr. Grace AbdulAlbumin/Globulin [Mass ratio]1.1 {ratio}NormalThe [facility] CenterComment on above:Performed By: #### CVDTBH #### [facility] [address] [place] [address] Dr. Grace CalderonP [Catalytic activity/Vol]74 U/VSdmlkb42-539Mta [facility] CenterComment on above:Performed By: #### CVDTBH #### [facility] [address] [place] [address] Dr. Grace CalderonT [Catalytic activity/Vol]23 U/CSxlyay21-22Lpg [facility] CenterComment on above:Performed By: #### CVDTBH #### [facility] [address] [place] [address] Dr. Grace Kauffmanon gap [Moles/Vol]12.1 mmol/LNormalThe [facility] Comment on above:Performed By: #### CVDTBH #### [facility] [address] [place] [address] Dr. Grace AbdulAST [Catalytic activity/Vol]21 U/YSfktnq72-42Vbw [facility] CenterComment on above:Performed By: #### CVDTBH #### [facility] [address] [place] [address] Dr. Grace AbdulBilirubin [Mass/Vol]0.2 mg/dLNormal0.2-1.0The [facility] Comment on above:Performed By: #### CVDTBH #### [facility] [address] [place] [address] Dr. Grace AbdulCalcium [Mass/Vol]9.3 mg/dLNormal8.5-10.1The [facility] Comment on above:Performed By: #### CVDTBH #### [facility] [address] [place] [address] Dr. Grace AbdulChloride [Moles/Vol]99 mmol/DZvorcf82-503Vtd [facility] Comment on above:Performed By: #### CVDTBH #### [facility] [address] [place] [address] Dr. Grace AbdulCO2 [Moles/Vol]31.2 mmol/NNevcqw17.0-32.0The [facility] Comment on above:Performed By: #### CVDTBH #### [facility] [address] [place] [address] Dr. Grace AbdulCreatinine [Mass/Vol]1.22 mg/dLCritically high0.55-1.02The [facility] CenterComment on above:Performed By: #### CVDTBH #### [facility] [address] [place] [address] Dr. Edwards ChangEGFR-AF JOXLLDTA07 mL/min/1.05e3Ygemdcewhs low>=60The [facility] CenterComment on above:Performed By: #### CVDTBH #### [facility] [address] [place] [address] Dr. Grace RichardGFR-NON AF JYGZONRX59 mL/min/1.55m5Cyqmctthsr low>=60The [facility] CenterComment on above:Performed By: #### CVDTBH #### [facility] [address] [place] [address] Dr. Grace AbdulGlobulin (S) [Mass/Vol]3.3 g/dLNormalThe [facility] CenterComment on above:Performed By: #### CVDTBH #### [facility] [address] [place] [address] Dr. Grace AbdulGlucose [Mass/Vol]115 mg/dLCritically obro03-914Srq [facility] CenterComment on above:Performed By: #### CVDTBH #### [facility] [address] [place] [address] Dr. Grace AbdulPotassium [Moles/Vol]3.3 mmol/LCritically low3.5-5.1The [facility] CenterComment on above:Performed By: #### CVDTBH #### [facility] [address] [address] [address] Grace AbdulProtein [Mass/Vol]6.9 g/dLNormal6.4-8.2The [facility] Comment on above:Performed By: #### CVDTBH #### [facility] [address] [address] [address] Grace AbdulSodium [Moles/Vol]139 mmol/FIsnsld045-086Gno [facility] Comment on above:Performed By: #### CVDTBH #### [facility] [address] [address] [address] Grace Bernal nitrogen [Mass/Vol]23.0 mg/dLCritically high7.0-18.0The [facility] CenterComment on above:Performed By: #### CVDTBH #### [facility] [address] [address] [address] Grace Bernal nitrogen/Creatinine [Mass ratio]18.9 mg/mgNormalThe [facility] CenterComment on above:Performed By: #### CVDTBH #### [facility] [address] [address] [address] Grace Marcos MICROSCOPIC ONLYon 28-68-5367AEMAPRVPBNGZ SEENNormalNONE SEENThe [facility] CenterComment on above:Performed By: #### MARITA UMICRO ####[facility] Fgahuaqdzo[address] [place], [place]Dr. Grace Dunncteria identified Cx Nom (U)NOT INDICATEDNormUniversity Hospitals Health SystemComment on above:Performed By: #### MARITA UMICRO ####[facility] Bhflgozjpz9[address] [place], [place]Dr. Grace AbdulCASTNONE SEEN NormalNONE SEENAvita Health System Bucyrus HospitalComment on above:Performed By: #### MARITA UMICRO ####[facility] Yvecfgtlhb8415 [place], [place] [address]FvDr. Grace Pinedoystals LM Nom (Urine sed)NONE SEENNormalNONE SEENThe [facility] CenterComment on above:Performed By: #### ERUR, UMICRO ####[facility] [address]aspucbv[address] [id number]. Grace Abdul Epithelial cells LM Ql (Urine sed)RARENormalNONE SEEN /RAREThe [facility] Comment on above:Performed By: #### GINA KIRKLANDRO ####[facility] [address]cs[address] [address]Dr. Grace ChangMUCOUSNONE SEEN NormalNONE SEENThe [facility] CenterComment on above:Performed By: #### MARITA UMICRO ####[facility] [address]rl[address] [address]Dr. Grace AbdulZyhwaRHJ1-7Cxrlmw3-6Gph [facility] CenterComment on above: Performed By: #### GODWIN KIRKLANDICRO ####[facility] R[address]ochi[address] [address]Dr. Grace AbdulWBC0-2AbnormalNONE SEENThe [facility] CenterComment on above:Performed By: #### MARITA ICRO ####[facility] [address]uaatcor[address] [place], [place] [address]Dr. Grace AbdulBNPon 52-65-4725Bnmcqaqomkb peptide B (Bld) [Mass/Vol]665.0 pg/mLNormal<=1,800.0The [facility] CenterComment on above:Performed By: #### BMP #### [facility] [address] [address] [address] Grace Casey AUTO DIFFon 80-60-1353CCZX #0.0 103/ulNormal0.0-0.1The [facility] CenterComment on above:Performed By: #### CBC ####[facility] [address]grmrplab[address] [place], [place] [address]Dr.Grace AbdulBasophils/100 WBC (Bld)0.5 %Normal0.2-2.0The [facility] CenterComment on above:Performed By: #### CBC ####[facility] Eormjocnxv[address] [place], [place] [address]Dr.Grace ChangEO #0.1 103/ulNormal0.0-0.7The [facility] HospitalComment on above:Performed By: #### CBC ####[facility] Jdtnclxewy[address] [place], [place] [address]Dr.Grace ChangEosinophils/100 WBC (Bld)1.9 %Normal 0.9-7.0The [facility] HospitalComment on above:Performed By: #### CBC ####[facility] Oeeofbldyr[address] [place], [place] [address]Dr.Benitalee ann Abdul Erythrocyte distribution width (RBC) [Ratio]13.4 %Ktklfj63.0-15.0The [facility] HospitalComment on above:Performed By: #### CBC ####[facility] Nucrqeuigy[address] [place], [place] [address]Dr.Benitalee ann ChangHematocrit (Bld) [Volume fraction]36.2 %Ewwibk67.0-48.0The [facility] CenterComment on above:Performed By: #### CBC ####[facility] Eoehowwlcn[address] [place], [place] [address]Dr.Grace ChangHemoglobin (Bld) [Mass/Vol]11.9 g/dL Critically low12.0-16.0The [facility] HospitalComment on above:Performed By: #### CBC ####[facility] Vltsocqcos[address] [place], [place] [address]Dr. Grace ChangIG #0.01 10e3/ulNormal0.00-0.03The [facility] HospitalComment on above: Performed By: #### CBC ####[facility] Hutfrweudq[address] [place], [place] [address]Dr.Grace ChangIG %0.2 %Normal0.0-0.5The [facility] CenterComment on above:Performed By: #### CBC ####[facility] Isnfcbkpyn[address] [place], [place] [address]Dr.Grace ChangLYMPH #0.5 103/ulCritically low1.2-3.8The [facility] CenterComment on above:Performed By: #### CBC ####[facility] Dsdgwkudvi[address] [address]Dr.Grace AbdulLymphocytes/100 WBC (Bld)11.5 %Critically low20.5-60.0The [facility] CenterComment on above:Performed By: #### CBC ####[facility] Oxbgtujugt[address] [address]Dr.Grace AbdulMANUAL DIFF REQ NONormalThe [facility] CenterComment on above:Performed By: #### CBC ####[facility] Evazyjqeqd[address] [place], [place] [address]Dr. Grace AbdulH (RBC) [Entitic mass]31.6 bwSkwpzu57.7-34.0The [facility] Comment on above:Performed By: #### CBC ####[facility] Lfnobegfkb[address] [place], [place] [address]Dr.Grace AbdulHC (RBC) [Mass/Vol]32.9 g/dL Nbczex34.9-35.2The [facility] CenterComment on above:Performed By: #### CBC ####[facility] Yegtkpgfok[address] [place], [place] [address]Dr. Grace AbdulV (RBC) [Entitic vol]96.0 uBGffmlb35.0-99.0The [facility] Comment on above:Performed By: #### CBC ####[facility] Vqdifdlbxg7[address] [place], [place] [address]Dr.Grace AbdulMONO #0.6 103/ulNormal0.3-0.8 The [facility] CenterComment on above:Performed By: #### CBC ####[facility] Iydmxhvqfx99[address] [place], [place] [address]Dr.Grace Abdul Monocytes/100 WBC (Bld)14.4 %Critically high1.7-12.0The [facility] CenterComment on above:Performed By: #### CBC ####[facility] Xtxfmbqyin[address] [place], [place] [address]Dr.Grace AbdulNEUT #3.0 103/ulNormal1.4-6.5The [facility] CenterComment on above:Performed By: #### CBC ####[facility] [address]lfalj[address] [place] [address]Dr.Grace AbdulNeutrophils/100 WBC (Bld)71.5 %Bpboni44.0-75.0The [facility] CenterComment on above:Performed By: #### CBC ####[facility] [address]ev[address]lagud[address] [place] [address]Dr.Grace AbdulPlatelet mean volume (Bld) [Entitic vol]9.2 fLCritically low 9.5-13.5The [facility] CenterComment on above:Performed By: #### CBC ####[facility] [address]bcjmach[address] [address]Dr. Grace UzkbvIPK445 103/wrObdhln274-237Cka [facility] CenterComment on above: Performed By: #### CBC ####[facility] Xhoenddith[address] [place] [address]Dr.Grace AbdulRBC3.77 106/ulCritically low4.20-5.40The [facility] CenterComment on above:Performed By: #### CBC ####[facility] Ekgwaysrlj[address] [place] [address]Dr.Grace AbdulWBC4.2 103/ul Normal4.0-11.0The [facility] CenterComment on above:Performed By: #### CBC ####[facility] [address]rewvsdpp[address] [place] [address]Dr. Grace AbdulFREE THYROXINE INDEX T7on 15-58-5419XQC7.97Kwpczp5.30-4.50The [facility] Medical CenterComment on above:Performed By: #### BMP #### [facility] [address] [address] [address] Grace AbdulT3U35.0 %Afqwrv85.0-39.0The [facility]c Medical CenterComment on above: Performed By: #### BMP #### [facility] [address] [address] [address] Grace AbdulT4 [Mass/Vol]7.50 ug/dLNormal4.80-13.90The [facility] Comment on above:Performed By: #### BMP #### [facility] [address] [address] [address] Grace FairCOHEMOGLOBIN A1Con 04-89-9158IRS RECOMMENDATIONSEE BELOWNormal The [facility] CenterComhen[facility] on above:Result Comment: ADA RECOMMENDED LIMIT 4.0 - 6.0 ADA THERAPEUTIC TARGET < 7.0 ACTION SUGGESTED > 7.0Performed By: #### A1C ####[facility] [address] [address]Dr. Grace AbdulGlucose [Mass/Vol]111 mg/dLNormUniversity Hospitals Health SystemComment on above:Performed By: #### A1C ####[facility] [address] [address]Dr.Yilan AbdulHbA1c (Bld) [Mass fraction]5.5 %Normal 4.5-6.2The [facility] CenterComment on above:Performed By: #### A1C ####[facility] [address] [place], [place] [address]Dr.Yilan AbdulIRONon 64-00-3124Bmfq [Mass/Vol]50.0 ug/jFFjgdbh15.0-170.0The [facility] CenterComment on above:Performed By: #### IRON, VITAD, VITB12 ####[facility] [address] [address]DrLisette AbdulLIPID PROFILE on 27-38-1547FAPZ-HDL RATIO NORMSEE BELOWAshtabula County Medical CenterComment on above:Result Comment: 3.3 - 4.4 LOW RISK 4.4 - 7.1 AVERAGE RISK 7.1 - 11.0 MODERATE RISK >11.0 HIGH RISKPerformed By: #### BMP #### [facility] [address] [address] [address] Grace AbdulCholesterol [Mass/Vol]182 mg/dLNormal<=200The [facility] Comment on above:Performed By: #### BMP #### [facility] [address] [address] [address] Grace Greeresterol in HDL [Mass/Vol]60 mg/qRZrfbcm56-04Kqp [facility] CenterComment on above:Performed By: #### BMP #### [facility] [address] [address] [address] Grace AbdulCholesterol in LDL [Mass/Vol]101.2 mg/dLAshtabula County Medical CenterComment on above:Performed By: #### BMP #### [facility] [address] [address] [address] Grace AbdulCholesterol.total/Cholesterol in HDL [Mass ratio]3.0 {ratio} NormalThe [facility]c Medical CenterComment on above:Performed By: #### BMP #### [facility] [address] [place] [address] Dr. Grace Lopez NORMAL> or = 60 mg/dl - LOW CARDIOVASCULAR RISK <40 mg/dl - HIGH CARDIOVASCULAR RISKAshtabula County Medical CenterComment on above:Performed By: #### BMP #### [facility] [address] [place] [address] Dr. Grace La CALC NORMALSEE BELOWAshtabula County Medical CenterComment on above:Result Comment: <100 mg/dl OPTIMAL 100 - 129 mg/dl NEAR OR ABOVE OPTIMAL 130 - 159 mg/dl BORDERLINE HIGH 160 - 189 mg/dl HIGH >190 mg/dl VERY HIGH Performed By: #### BMP #### [facility] [address] [place] [address] Dr. Grace AbdulTriglyceride [Mass/Vol]104 mg/dLNormal<=150The [facility] Comment on above:Performed By: #### BMP #### [facility] [address] [place] [address] Dr. Grace StarksLDL CALC20.8 mg/dLNoParkview Health Montpelier HospitalComment on above: Performed By: #### BMP #### [facility] [address] [place] [address] Dr. Grace AbdulPROF 14(COMP METB)on 29-37-2101Hjrfhub [Mass/Vol]3.5 g/dLNormal 3.4-5.0The [facility] CenterComment on above:Performed By: #### BMP #### [facility] [address] [place] [address] Dr. Grace AbdulAlbumin/Globulin [Mass ratio]1.0 {ratio}NormalThe [facility] Medical CenterComment on above:Performed By: #### BMP #### [facility] [address] [address] [address] Grace CalderonP [Catalytic activity/Vol]55 U/EJvtrgp68-504Hqv [facility] Medical CenterComment on above:Performed By: #### BMP #### [facility] [address] [place] [address] Dr. Grace CalderonT [Catalytic activity/Vol]21 U/BDqsehc51-95Car [facility] CenterComment on above:Performed By: #### BMP #### [facility] [address] [place] [address] Dr. Grace AbdulAnion gap [Moles/Vol]9.3 mmol/LNormalThe [facility] Medical CenterComment on above:Performed By: #### BMP #### [facility] [address] [place] [address] Dr. Grace AbdulAST [Catalytic activity/Vol]21 U/QBxgrqu33-26Bpi [facility] CenterComment on above:Performed By: #### BMP #### [facility] [address] [place] [address] Dr. Grace AbdulBilirubin [Mass/Vol]0.3 mg/dLNormal0.2-1.0The [facility] Comment on above:Performed By: #### BMP #### [facility] [address] [place] [address] Dr. Grace AbdulCalcium [Mass/Vol]9.5 mg/dLNormal8.5-10.1The [facility] Comment on above:Performed By: #### BMP #### [facility] [address] [place] [address] Dr. Grace AbdulChloride [Moles/Vol]102 mmol/IVisrkr15-436Iko [facility] Comment on above:Performed By: #### BMP #### [facility] [address] [address] [address] Grace AbdulCO2 [Moles/Vol]28.5 mmol/XGrfojw09.0-32.0The [facility] Comment on above:Performed By: #### BMP #### [facility] [address] [place] [address] Dr. Grace AbdulCreatinine [Mass/Vol]1.04 mg/dLCritically high0.55-1.02The [facility] CenterComment on above:Performed By: #### BMP #### [facility] [address] [place] [address] Dr. Edwards ChangEGFR-AF EAST TIMORESE>60Normal>=60The [facility] Medical CenterComment on above:Performed By: #### BMP #### [facility] [address] [place] [address] Dr. Grace RichardGFR-NON AF BLZRFMVT89 mL/min/1.84o6Oljjigjrsp low>=60The [facility] CenterComment on above:Performed By: #### BMP #### [facility] [address] [place] [address] Dr. Grace AbdulGlobulin (S) [Mass/Vol]3.5 g/dLNormalThe [facility] CenterComment on above:Performed By: #### BMP #### [facility] [address] [place] [address] Dr. Grace AbdulGlucose [Mass/Vol]102 mg/bVYdxcbh99-512ApoAvita Health System [facility]cyrus Hospital Comment on above:Performed By: #### BMP #### [facility] [address] [place] [address] Dr. Grace AbdulPotassium [Moles/Vol]3.8 mmol/LNormal3.5-5.1The [facility] Comment on above:Performed By: #### BMP #### [facility] [address] [place] [address] Dr. Grace AbdulProtein [Mass/Vol]7.0 g/dLNormal6.4-8.2The [facility] Comment on above:Performed By: #### BMP #### [facility] [address] [place] [address] Dr. Grace AbdulSodium [Moles/Vol]136 mmol/CUajfzj153-137Ypz [facility] Comment on above:Performed By: #### BMP #### [facility] [address] [address] [address] Grace AbdulUrea nitrogen [Mass/Vol]20.0 mg/dLCritically high7.0-18.0The [facility] CenterComment on above:Performed By: #### BMP #### [facility] [address] [address] [address] Grace AbdulUrea nitrogen/Creatinine [Mass ratio]19.2 mg/mgNoParkview Health Montpelier HospitalComment on above:Performed By: #### BMP #### [facility] [address] [place] [address] Dr. Grace AbdulTSHoelida 15-96-3484EJS4.247 uIU/mLCritically low0.358-3.740The [facility] CenterComment on above:Performed By: #### BMP #### [facility] [address] [place] [address] Dr. Grace AbdulVITAMIN B12on 05-85-0261Pzsusvgmv (Vitamin B12) [Mass/Vol]762.0 pg/sCHeynoq626.0-986.0The [facility] CenterComment on above:Performed By: #### IRON, VITAD, VITB12 ####[facility] [address] [place], [place] [address]Dr. Grace AbdulVITAMIN D 25 OHon 24-41-6591PXR D 25-OH 54.9 ng/mLNormalThe [facility] Medical CenterComment on above:Performed By: #### IRON, VITAD, VITB12 ####[facility] [address] [address]Dr. Grace AbdulVIT D RANGESSEE BELOWAshtabula County Medical CenterComment on above:Result Comment: <20 ng/mL Vit D deficient 20 - <30 ng/mL Vit D insufficient 30 - 100 ng/mL Vit D sufficient >100 ng/mL Potential Toxicity Performed By: #### IRON, VITAD, VITB12 ####[facility] [address] [id number] Bocanegra MAMM SCREEN 3D CLEMENCIA CADon 06-02-1604IN MAMM SCREEN 3D CLEMENCIA CADPatient: ALEXA DELGADO Exam Date: 11/25/2021 : 1940 Gender:F Ordering : DR GALINA PALMER . Admission #: [id number] Family : DR ARMANDO THAYER Order #: [id number] CLICK HERE TO VIEW EXAM RADIOLOGY REPORT [...] Treatments None Family Cancers None LOCATION: [facility] BREAST COMPOSITION: Scattered areas fibroglandular [...] by: Hermes Suarez MD on 11/25/2021 at 14:14[facility] CULTURE URINEon 72-46-8328QOBDEUH URINECulture Observations: LIGHT GROWTH OF MIXED GENITAL ALANIS. NO POTENTIAL PATHOGENS SEEN.NormalThe [facility] Medical CenterComment on above:Performed By: #### URCX ####[facility] [address] [id number]. Grace Crow PANEL (PCR) on 55-31-7261Suelrmsbyd F 40/41Not detectedNormalNOT DETECTEDAvita Health System Bucyrus HospitalComment on above:Performed By: #### CBC #### [facility] [address] [address] [address] Grace AbdulAstrovirusNot detectedNormalNOT DETECTEDThe [facility] Comment on above:Performed By: #### CBC #### [facility] [address] [address] [address] Grace Meza. Diff toxin A/BNot detectedNormalNOT DETECTEDThe [facility] CenterComment on above:Performed By: #### CBC #### [facility] [address] [address] [address] Grace BarnespylobacterNot detectedNormalNOT DETECTEDThe [facility] Comment on above:Performed By: #### CBC #### [facility] [address] [address] [address] Grace AbdulCryptosporidiumNot detectedNormalNOT DETECTEDThe [facility] CenterComment on above:Performed By: #### CBC #### [facility] [address] [address] [address] Grace Whitney. CayetanensisNot detectedNormalNOT DETECTEDThe [facility] CenterComment on above:Performed By: #### CBC #### [facility] [address] [address] [address] Grace Lizarraga Coli U840Hzr ApplicableNormalNot ApplicableThe [facility] CenterComhenry for[facility] on above:Performed By: #### CBC #### [facility] [address] [address] [address] Grace Lizarraga histolyticaNot detectedNormalNOT DETECTEDThe [facility] Comment on above:Performed By: #### CBC #### [facility] [address] [address] [address] Grace RichardAECNot detectedNormalNOT DETECTEDThe [facility] CenterComment on above:Performed By: #### CBC #### [facility] [address] [address] [address] Grace RichardIECNot detectedNormalNOT DETECTEDThe [facility] CenterComhenry ford [facility] on above:Performed By: #### CBC #### [facility] [address] [address] [address] Grace RichardPECNot detectedNormalNOT DETECTEDThe [facility] CenterComment on above:Performed By: #### CBC #### [facility] [address] [address] [address] Grace Groves detectedNormalNOT DETECTEDAvita Health System Bucyrus HospitalComment on above:Performed By: #### CBC #### [facility] [address] [address] [address] Grace Huang LambliaNomerritt detectedNormalNOT DETECTEDAvita Health System Bucyrus Hospital Comment on above:Performed By: #### CBC #### [facility] [address] [address] [address] Grace Reid CONTROLSGrand Lake Joint Township District Memorial HospitalComment on above:Performed By: #### CBC #### [facility] [address] [address] [address] Grace DIETRICH HEADERGI [facility] Comment on above:Performed By: #### CBC #### [facility] [address] [address] [address] Grace Tena ECOLIGI PANEL DIARRHEAGENIC E.COLI / SHIGELLAAshtabula County Medical CenterComment on above:Performed By: #### CBC #### [facility] [address] [address] [address] Grace Tena INFOSEDayton Osteopathic HospitalComhenry ford [facility] hospital on above: Result Comment: EAEC- Enteroaggregative E. Coli EPEC- Enteropathogenic E. Coli ETEC- Enterotoxigenic E. Coli lt/st STEC- Shigella-like toxin-producing E. Coli stx1/stx2 EIEC- Shigella/Enteroinvasive E. ColiPerformed By: #### CBC #### [facility] [address] [address] [address] Grace Tena PARASITESGI PANEL [facility] Comment on above:Performed By: #### CBC #### [facility] [address] [address] [address] Grace Tena VIRUSGI PANEL [facility] HospitalComment on above:Performed By: #### CBC #### [facility] [address] [address] [address] Grace Pinarovirus GI/GIINot detectedNormalNOT DETECTEDThe [facility] CenterComment on above:Performed By: #### CBC #### [facility] [address] [address] [address] Grace Amin. ShigelloidesNot detectedNormalNOT DETECTEDThe [facility] CenterComment on above:Performed By: #### CBC #### [facility] [address] [address] [address] Grace AbdulRotavirus ANot detectedNormalNOT DETECTEDThe [facility] Comment on above:Performed By: #### CBC #### [facility] [address] [address] [address] Grace AbdulSalmonellaNot detectedNormalNOT DETECTEDThe [facility] Comment on above:Performed By: #### CBC #### [facility] [address] [address] [address] Grace AbdulSapovirusNot detectedNormalNOT DETECTEDThe [facility] Comment on above:Performed By: #### CBC #### [facility] [address] [address] [address] Grace AbdulSTECNot detectedNormalNOT DETECTEDThe [facility] CenterComhenry for[facility] on above:Performed By: #### CBC #### [facility] [address] [address] [address] Grace BenzbrioNot detectedNormalNOT DETECTEDThe [facility] CenterComment on above:Performed By: #### CBC #### [facility] [address] [address] [address] Grace Rappio CholeraNot detectedNormalNOT DETECTEDAvita Health System [facility] Hospital Comment on above:Performed By: #### CBC #### [facility] [address] [address] [address] Grace Montoya. EnterocoliticaNot detectedNormalNOT DETECTEDThe [facility] CenterComment on above:Performed By: #### CBC #### [facility] [address] [address] [address] Grace Cespedes RANDOM W/MICROSCOPICon 67-41-4655YHHLNVTPSQTD SEENNormalNONE SEENAvita Health System Bucyrus HospitalComment on above:Performed By: #### UAMIC ####[facility] [address] [place], [place] [address]Dr. Grace Abdul Bilirubin Ql (U)NegativeNormalNEGATIVEAvita Health System Bucyrus HospitalComment on above: Performed By: #### UAMIC ####[facility] Cmgesn[address] [place], [place] [address]Dr. Grace ChangCASTNONE SEENNormalNONE SEENAvita Health System Bucyrus HospitalComment on above:Performed By: #### UAMIC ####[facility] [address] [place], [place] [address]Dr. Grace AbdulClarity (U) CLEARNormalCLEARAvita Health System Bucyrus HospitalComment on above:Performed By: #### UAMIC ####[facility] [address] [place], [place] [address]Dr. Grace AbdulColor (U)LT. YELLOWNormalYELLOWAvita Health System Bucyrus HospitalComment on above: Performed By: #### UAMIC ####[facility] [address] [place], [place] [address]Dr. Grace AbdulCrystals LM Nom (Urine sed)NONE SEEN NormalNONE SEENAvita Health System Bucyrus HospitalComhenry for[facility] hospital on above:Performed By: #### UAMIC ####[facility] [address] [place], [place] [address]Dr. Grace ChangEpithelial cells LM Ql (Urine sed)FEWAbnormalNONE SEEN /RAREThe [facility] CenterComment on above:Performed By: #### UAMIC ####[facility] [address]ga[address] [place], [place] [address]Dr. Grace AbdulGlucose Ql (U)NegativeNormalNEGATIVEAvita Health System Bucyrus HospitalComment on above:Performed By: #### UAMIC ####[facility] [address]mb[address]kzn[address] [place], [place] [address]Dr. Grace AbdulHemoglobin Ql (U)TRACE-INTACTAbnormalNEGATIVEAvita Health System Bucyrus HospitalComment on above:Performed By: #### UAMIC ####[facility] [address] [address]Dr. Yilan ChangKetones Ql (U) NegativeNormalNEGATIVEThe [facility] HospitalComment on above:Performed By: #### UAMIC ####[facility] Lummsxtth[address] [place], [place] [address]Dr. Yilan ChangLEUKOCYTESNegativeNormalNEGATIVEThe [facility] HospitalComment on above:Performed By: #### UAMIC ####[facility] [address] [place], [place] [address]Dr. Yilan ChangMUCOUSNONE SEENNormalNONE SEENThe [facility] HospitalComment on above:Performed By: #### UAMIC ####[facility] Es[address]pngndk[address] [place], [place] [address]Dr. Yilan ChangNitrite Ql (U)NegativeNormalNEGATIVEThe [facility] HospitalComment on above:Performed By: #### UAMIC ####[facility] Zeqxq[address] [place], [place] [address]Dr. Yilan ChangpH (U)7.5 [pH]Normal5-9The [facility] CenterComment on above:Performed By: #### UAMIC ####[facility] Ghgrubnx[address] [place], [place] [address]Dr. Yilan MbzvlSYM7-0Inicem3-4Zal [facility] Comment on above:Performed By: #### UAMIC ####[facility] [address] [place], [place] [address]Dr. Yilan ChangSPEC GRAVITY1.010Normal 1.005-<=1.025The [facility] CenterComment on above:Performed By: #### UAMIC ####[facility] [address]qr[address] [place], [place] [address]Dr. Yilan ChangUA PROTEINNegativeNormalNEGATIVE/ TRACEThe [facility] HospitalComment on above:Performed By: #### UAMIC ####[facility] [address] [place], [place] [address]Dr. Yilan ChangUrobilinogen Qn (U)0.2 {Ashley'U}/dL Normal0.2 - 1.0The [facility] CenterComment on above:Performed By: #### UAMIC ####[facility] [address] [address]Dr. Grace AbdulWBCNONE SEENNormalNONE SEENThe [facility] CenterComment on above: Performed By: #### UAMIC ####[facility] [address] [address]Dr. Grace MoranC AUTO DIFFon 39-31-2615LCEU #0.0 103/ulNormal0.0-0.1The [facility] CenterComment on above:Performed By: #### CBC #### [facility] [address] [place] [address] Dr. Grace AbdulBasophils/100 WBC (Bld)0.4 %Normal0.2-2.0The [facility] Comment on above:Performed By: #### CBC #### [facility] [address] [address] [address] Grace Blunt #0.1 103/ulNormal0.0-0.7The [facility] CenterComment on above: Performed By: #### CBC #### [facility] [address] [place] [address] Dr. Grace Richardosinophils/100 WBC (Bld)1.5 %Normal0.9-7.0The [facility] Comment on above:Performed By: #### CBC #### [facility] [address] [address] [address] Grace Richardrythrocyte distribution width (RBC) [Ratio]13.2 %Zzbgyp69.0-15.0 The [facility] CenterComment on above:Performed By: #### CBC #### [facility] [address] [place] [address] Dr. Grace AbdulHematocrit (Bld) [Volume fraction]31.9 %Critically low36.0-48.0 The [facility] CenterComment on above:Performed By: #### CBC #### [facility] [address] [address] [address] Grace AbdulHemoglobin (Bld) [Mass/Vol]10.5 g/dLCritically low12.0-16.0The [facility] CenterComment on above:Performed By: #### CBC #### [facility] [address] [place] [address] Dr. Grace Son #0.01 10e3/ulNormal0.00-0.03The [facility] CenterComment on above:Performed By: #### CBC #### [facility] [address] [place] [address] Dr. Grace Son %0.2 %Normal0.0-0.5The [facility] CenterComment on above: Performed By: #### CBC #### [facility] [address] [place] [address] Dr. Grace Hamilton #0.7 103/ulCritically low1.2-3.8The [facility] Comment on above:Performed By: #### CBC #### [facility] [address] [place] [address] Dr. Grace Willishocytes/100 WBC (Bld)14.8 %Critically low20.5-60.0The [facility] CenterComment on above:Performed By: #### CBC #### [facility] [address] [place] [address] Dr. Grace FloresUAL DIFF REQNONormalThe [facility] CenterComment on above: Performed By: #### CBC #### [facility] [address] [place] [address] Dr. Grace Perdomo (RBC) [Entitic mass]31.4 ooIhufmg15.7-34.0The [facility] CenterComment on above:Performed By: #### CBC #### [facility] [address] [place] [address] Dr. Grace Perdomo (RBC) [Mass/Vol]32.9 g/cDLndtbi42.9-35.2The [facility] CenterComment on above:Performed By: #### CBC #### [facility] [address] [address] [address] Grace PerdomoV (RBC) [Entitic vol]95.5 yRCjpket00.0-99.0The [facility] on above:Performed By: #### CBC #### [facility] [address] [place] [address] Dr. Grace Barrios #0.6 103/ulNormal0.3-0.8The [facility] CenterComment on above:Performed By: #### CBC #### [facility] [address] [place] [address] Dr. Grace Riderocytes/100 WBC (Bld)13.4 %Critically high1.7-12.0The [facility] on above:Performed By: #### CBC #### [facility] [address] [place] [address] Dr. Grace Brar #3.3 103/ulNormal1.4-6.5The [facility] on above:Performed By: #### CBC #### [facility] [address] [place] [address] Dr. Grace Solitarioutrophils/100 WBC (Bld)69.7 %Rvgarh55.0-75.0The [facility] on above:Performed By: #### CBC #### [facility] [address] [place] [address] Dr. Grace Stokeslet mean volume (Bld) [Entitic vol]9.1 fLCritically low 9.5-13.5The [facility] on above:Performed By: #### CBC #### [facility] [address] [place] [address] Dr. Grace AbdulPLT335 103/tcJftzqj791-060Rfu [facility] on above: Performed By: #### CBC #### [facility] [address] [place] [address] Dr. Grace AbdulRBC3.34 106/ulCritically low4.20-5.40The [facility] on above:Performed By: #### CBC #### [facility] [address] [address] [address] Grace AbdulWBC4.8 103/ulNormal4.0-11.0The [facility] CenterComment on above: Performed By: #### CBC #### [facility] [address] [address] [address] Grace Michelle THYROXINE INDEX T7on 98-67-7420FZK3.15Critically low 1.30-4.50The [facility] CenterComment on above:Performed By: #### T7, CMP, TSH ####[facility] [address] [id number]. Grace AbdulT3U31.0 %Rrpwua32.0-39.0The [facility] CenterComment on above: Performed By: #### T7, CMP, TSH ####[facility] [address] [place], [place]Dr. Grace AbdulT4 [Mass/Vol]3.70 ug/dLCritically low 4.80-13.90The [facility] CenterComment on above:Performed By: #### T7, CMP, TSH ####[facility] [address] [id number]. Grace AbdulIRONon 46-70-9447Ktow [Mass/Vol]52.0 ug/iOEvxxkd51.0-170.0The [facility] CenterComment on above:Performed By: #### CVDTBH #### [facility] [address] [address] [address] Grace Reno 14(COMP METB)on 42-21-8580Exypgmq [Mass/Vol]3.5 g/dLNormal 3.4-5.0The [facility] CenterComment on above:Performed By: #### T7, CMP, TSH ####[facility] [address] [id number]. Grace AbdulAlbumin/Globulin [Mass ratio]1.1 {ratio}NormalThe [facility] Comment on above:Performed By: #### T7, CMP, TSH ####[facility] [address] [place], [place]Dr. Yilan ChangALP [Catalytic activity/Vol]69 U/PIycxiq78-151Yfh [facility] CenterComment on above:Performed By: #### T7, CMP, TSH ####[facility] [address] [place], [place]Dr. Yilan ChangALT [Catalytic activity/Vol]51 U/LNormal 14-59The [facility] CenterComment on above:Performed By: #### T7, CMP, TSH ####[facility] [address] [place], [place]Dr. Yilan ChangAnion gap [Moles/Vol]11.5 mmol/LNormalThe [facility] CenterComment on above:Performed By: #### T7, CMP, TSH ####[facility] [address] [place], [place]Dr. Yilan ChangAST [Catalytic activity/Vol]24 U/L Foorbs88-26Edb [facility] CenterComment on above:Performed By: #### T7, CMP, TSH ####[facility] [address] [place], [place]Dr. Yilan ChangBilirubin [Mass/Vol]0.2 mg/dLNormal0.2-1.0The [facility] Comment on above:Performed By: #### T7, CMP, TSH ####[facility] [address] [place], [place] [id number]. Yilan ChangCalcium [Mass/Vol]9.3 mg/dLNormal8.5-10.1The [facility] Hospitalment on above:Performed By: #### T7, CMP, TSH ####[facility] On[address] [place], [place] [id number]. Yilan ChangChloride [Moles/Vol]98 mmol/LNormal 98-107The [facility] Medical CenterComment on above:Performed By: #### T7, CMP, TSH ####[facility] [address] [place], [place] [id number]. Yilan ChangCO2 [Moles/Vol]28.7 mmol/DEugkbc22.0-32.0The [facility] CenterComment on above:Performed By: #### T7, CMP, TSH ####[facility] [address] [place] [id number]. Yilan ChangCreatinine [Mass/Vol]1.11 mg/dLCritically high0.55-1.02The [facility] CenterComment on above:Performed By: #### T7, CMP, TSH ####[facility] [address] [place] [address]Dr. Yilan ChangEGFR-AF DTRXZKUV69 mL/min/1.73m2 Critically low>=60The [facility] CenterComment on above:Performed By: #### T7, CMP, TSH ####[facility] [address] [place], [place] [address]Yq. Yilan ChangEGFR-NON AF AYLHJZBX37 mL/min/1.76e4Tkywwwkmrv low>=60The [facility] CenterComment on above:Performed By: #### T7, CMP, TSH ####[facility] [address] [place], [place] [address]Dr. Yilan Abdul Globulin (S) [Mass/Vol]3.3 g/dLNormalThe [facility] CenterComment on above: Performed By: #### T7, CMP, TSH ####[facility] [address] [place], [place]Dr. Yilan ChangGlucose [Mass/Vol]88 mg/bNQbykng96-072 The [facility] CenterComment on above:Performed By: #### T7, CMP, TSH ####[facility] [address] [place], [place]Dr. Yilan ChangPotassium [Moles/Vol]4.2 mmol/LNormal3.5-5.1The [facility] Comment on above:Performed By: #### T7, CMP, TSH ####[facility] [address] [place] [address]Dr. Yilan ChangProtein [Mass/Vol]6.8 g/dLNormal6.4-8.2The [facility] CenterComment on above:Performed By: #### T7, CMP, TSH ####[facility] [address] [place], [place]Dr. Yilan ChangSodium [Moles/Vol]134 mmol/LCritically jzd874-060Xsk [facility] CenterComment on above:Performed By: #### T7, CMP, TSH ####[facility] [address] [place] [id number]. Yilan ChangUrea nitrogen [Mass/Vol]33.0 mg/dLCritically high7.0-18.0The [facility] CenterComment on above:Performed By: #### T7, CMP, TSH ####[facility] [address] [place] [address]Dr. Yilan ChangUrea nitrogen/Creatinine [Mass ratio]29.7 mg/mgNormalThe [facility] CenterComment on above:Performed By: #### T7, CMP, TSH ####[facility] [address] [place] [id number]. Grace AbdulTSHon 33-58-1793WBP8.469 uIU/mL Normal0.358-3.740The [facility] CenterComment on above:Performed By: #### T7, CMP, TSH ####[facility] [address] [place] [address]Dr. Grace MoranC AUTO DIFFon 08-04-2114BKEB #0.0 103/ulNormal0.0-0.1The [facility] CenterComment on above:Performed By: #### CVDTBH #### [facility] [address] [address] [address] Grace AbdulBasophils/100 WBC (Bld)0.2 %Normal0.2-2.0The [facility] Comment on above:Performed By: #### CVDTBH #### [facility] [address] [address] [address] Grace Blunt #0.1 103/ulNormal0.0-0.7The [facility] CenterComment on above: Performed By: #### CVDTBH #### [facility] [address] [place] [address] Dr. Grace Richardosinophils/100 WBC (Bld)0.9 %Normal0.9-7.0[facility] Comment on above:Performed By: #### CVDTBH #### [facility] [address] [place] [address] Dr. Grace Richardrythrocyte distribution width (RBC) [Ratio]12.8 %Rcjooc35.0-15.0 [facility] HospitalComment on above:Performed By: #### CVDTBH #### [facility] [address] [place] [address] Dr. Grace AbdulHematocrit (Bld) [Volume fraction]35.2 %Critically low36.0-48.0 [facility] HospitalComment on above:Performed By: #### CVDTBH #### [facility] [address] [place] [address] Dr. Grace AbdulHemoglobin (Bld) [Mass/Vol]12.1 g/bDXmswqq95.0-16.0[facility] HospitalComment on above:Performed By: #### CVDTBH #### [facility] [address] [place] [address] Dr. Grace Son #0.05 10e3/ulCritically high0.00-0.03[facility] Comment on above:Performed By: #### CVDTBH #### [facility] [address] [place] [address] Dr. Grace Son %0.6 %Critically high0.0-0.5ThBrecksville VA / Crille HospitalComment on above:Performed By: #### CVDTBH #### [facility] [address] [place] [address] Dr. Grace Hamilton #0.6 103/ulCritically low1.2-3.8The [facility] Comment on above:Performed By: #### CVDTBH #### [facility] [address] [place] [address] Dr. Grace Hillmphocytes/100 WBC (Bld)7.4 %Critically low20.5-60.0The [facility] CenterComment on above:Performed By: #### CVDTBH #### [facility] [address] [place] [address] Dr. Grace Gee DIFF REQNONormalThe [facility] CenterComment on above: Performed By: #### CVDTBH #### [facility] [address] [place] [address] Dr. Grace Perdomo (RBC) [Entitic mass]31.5 hdNwwdtr59.7-34.0The [facility] CenterComment on above:Performed By: #### CVDTBH #### [facility] [address] [place] [address] Dr. Grace Perdomo (RBC) [Mass/Vol]34.4 g/nCStwdvl84.9-35.2The [facility] CenterComment on above:Performed By: #### CVDTBH #### [facility] [address] [place] [address] Dr. Grace Serrano (RBC) [Entitic vol]91.7 bXUoatrj85.0-99.0The [facility] CenterComment on above:Performed By: #### CVDTBH #### [facility] [address] [place] [address] Dr. Grace Barrios #1.0 103/ulCritically high0.3-0.8The [facility] Comment on above:Performed By: #### CVDTBH #### [facility] [address] [place] [address] Dr. Grace Riderocytes/100 WBC (Bld)12.1 %Critically high1.7-12.0The [facility] CenterComment on above:Performed By: #### CVDTBH #### [facility] [address] [place] [address] Dr. Grace Brar #6.3 103/ulNormal1.4-6.5The [facility] CenterComment on above:Performed By: #### CVDTBH #### [facility] [address] [place] [address] Dr. Grace AbdulNeutrophils/100 WBC (Bld)78.8 %Critically high43.0-75.0The [facility] CenterComment on above:Performed By: #### CVDTBH #### [facility] [address] [place] [address] Dr. Grace AbdulPlatelet mean volume (Bld) [Entitic vol]9.1 fLCritically low 9.5-13.5The [facility] CenterComment on above:Performed By: #### CVDTBH #### [facility] [address] [place] [address] Dr. Grace AbdulPLT281 103/mjCqprdr350-336Joi [facility] CenterComment on above: Performed By: #### CVDTBH #### [facility] [address] [place] [address] Dr. Grace AbdulRBC3.84 106/ulCritically low4.20-5.40The [facility] CenterComment on above:Performed By: #### CVDTBH #### [facility] [address] [place] [address] Dr. Grace AbdulWBC8.0 103/ulNormal4.0-11.0The [facility] CenterComment on above: Performed By: #### CVDTBH #### [facility] [address] [place] [address] Dr. Grace AbdulMAGNESIUMon 06-75-1784Tkvvpuvby [Mass/Vol]1.9 mg/dLNormal1.8-2.4 The [facility] CenterComment on above:Performed By: #### CVDTBH #### [facility] [address] [place] [address] Dr. Grace AbdulPROF CHEM 8 (BAS METB)on 15-76-3039Crywh gap [Moles/Vol]13.9 mmol/LNormalThe [facility] CenterComment on above:Performed By: #### CVDTBH #### [facility] [address] [place] [address] Dr. Grace AbdulCalcium [Mass/Vol]8.7 mg/dLNormal8.5-10.1The [facility] Comment on above:Performed By: #### CVDTBH #### [facility] [address] [place] [address] Dr. Grace AbdulChloride [Moles/Vol]101 mmol/GBoycll55-152Byw [facility] Comment on above:Performed By: #### CVDTBH #### [facility] [address] [place] [address] Dr. Grace AbdulCO2 [Moles/Vol]24.3 mmol/TQosahg91.0-32.0The [facility] Comment on above:Performed By: #### CVDTBH #### [facility] [address] [place] [address] Dr. Grace AbdulCreatinine [Mass/Vol]0.89 mg/dLNormal0.55-1.02The [facility] CenterComment on above:Performed By: #### CVDTBH #### [facility] [address] [place] [address] Dr. Grace RichardGFR-AF EAST TIMORESE>60Normal>=60The [facility] CenterComment on above:Performed By: #### CVDTBH #### [facility] [address] [place] [address] Dr. Grace RichardGFR-NON AF EAST TIMORESE>60Normal>=60The [facility] CenterComment on above:Performed By: #### CVDTBH #### [facility] [address] [place] [address] Dr. Grace AbdulGlucose [Mass/Vol]97 mg/eDGnauia57-704Pzt [facility] Comment on above:Performed By: #### CVDTBH #### [facility] [address] [place] [address] Dr. Grace AbdulPotassium [Moles/Vol]3.2 mmol/LCritically low3.5-5.1The [facility] CenterComment on above:Performed By: #### CVDTBH #### [facility] [address] [place] [address] Dr. Grace Kaurum [Moles/Vol]136 mmol/IEpgokz054-982Zum [facility] Comment on above:Performed By: #### CVDTBH #### [facility] [address] [place] [address] Dr. Grace Bernal nitrogen [Mass/Vol]14.0 mg/dLNormal7.0-18.0The [facility] CenterComment on above:Performed By: #### CVDTBH #### [facility] [address] [place] [address] Dr. Grace Bernal nitrogen/Creatinine [Mass ratio]15.7 mg/mgNormalThe [facility] CenterComment on above:Performed By: #### CVDTBH #### [facility] [address] [place] [address] Dr. Grace Casey AUTO DIFFon 70-73-1187OUET #0.0 103/ulNormal0.0-0.1The [facility] CenterComment on above:Performed By: #### BMP #### [facility] [address] [place] [address] Dr. Grace AbdulBasophils/100 WBC (Bld)0.2 %Normal0.2-2.0[facility] Comment on above:Performed By: #### BMP #### [facility] [address] [place] [address] Dr. Grace Blunt #0.0 103/ulNormal0.0-0.7The [facility] CenterComment on above: Performed By: #### BMP #### [facility] [address] [place] [address] Dr. Grace Richardosinophils/100 WBC (Bld)0.5 %Critically low0.9-7.0The [facility] CenterComment on above:Performed By: #### BMP #### [facility] [address] [place] [address] Dr. Grace Richardrythrocyte distribution width (RBC) [Ratio]12.4 %Xyhctl26.0-15.0 The [facility] CenterComment on above:Performed By: #### BMP #### [facility] [address] [place] [address] Dr. Grace AbdulHematocrit (Bld) [Volume fraction]33.6 %Critically low36.0-48.0 The [facility] CenterComment on above:Performed By: #### BMP #### [facility] [address] [place] [address] Dr. Grace AbdulHemoglobin (Bld) [Mass/Vol]11.8 g/dLCritically low12.0-16.0The [facility] CenterComment on above:Performed By: #### BMP #### [facility] [address] [place] [address] Dr. Grace AbdulIG #0.04 10e3/ulCritically high0.00-0.03The [facility] Comment on above:Performed By: #### BMP #### [facility] [address] [place] [address] Dr. Grace AbdulIG %0.7 %Critically high0.0-0.5The [facility] CenterComment on above:Performed By: #### BMP #### [facility] [address] [place] [address] Dr. Grace Hamilton #0.7 103/ulCritically low1.2-3.8The [facility] Comment on above:Performed By: #### BMP #### [facility] [address] [place] [address] Dr. Grace Hillmphocytes/100 WBC (Bld)11.1 %Critically low20.5-60.0The [facility] CenterComment on above:Performed By: #### BMP #### [facility] [address] [place] [address] Dr. Grace AbdulMANUAL DIFF REQNONormalThe [facility] CenterComment on above: Performed By: #### BMP #### [facility] [address] [place] [address] Dr. Grace Joy (RBC) [Entitic mass]31.5 rfJcroqh80.7-34.0The [facility] CenterComment on above:Performed By: #### BMP #### [facility] [address] [address] [address] Grace PerdomoHC (RBC) [Mass/Vol]35.1 g/eQGiovje69.9-35.2The [facility] CenterComment on above:Performed By: #### BMP #### [facility] [address] [address] [address] Grace PerdomoV (RBC) [Entitic vol]89.6 xBPbjjoq79.0-99.0The [facility] HospitalComment on above:Performed By: #### BMP #### [facility] [address] [address] [address] Grace Barrios #0.9 103/ulCritically high0.3-0.8The [facility] Comment on above:Performed By: #### BMP #### [facility] [address] [address] [address] Grace Riderocytes/100 WBC (Bld)14.0 %Critically high1.7-12.0The [facility] CenterComment on above:Performed By: #### BMP #### [facility] [address] [address] [address] Grace Brar #4.5 103/ulNormal1.4-6.5The [facility] CenterComment on above:Performed By: #### BMP #### [facility] [address] [address] [address] Grace Solitarioutrophils/100 WBC (Bld)73.5 %Ntwmet78.0-75.0The [facility] HospitalComment on above:Performed By: #### BMP #### [facility] [address] [address] [address] Grace Stokeslet mean volume (Bld) [Entitic vol]9.3 fLCritically low 9.5-13.5The [facility] CenterComment on above:Performed By: #### BMP #### [facility] [address] [address] [address] Grace AbdulPLT292 103/ikZixvtw580-833Vez [facility] CenterComment on above: Performed By: #### BMP #### [facility] [address] [address] [address] Grace AbdulRBC3.75 106/ulCritically low4.20-5.40The [facility] CenterComment on above:Performed By: #### BMP #### [facility] [address] [address] [address] Grace AbdulWBC6.1 103/ulNormal4.0-11.0The [facility] CenterComment on above: Performed By: #### BMP #### [facility] [address] [place] [address] Dr. Grace AbdulCULTURE URINEon 02-32-0467EERRKXC URINECulture Observations: LIGHT GROWTH OF MIXED GENITAL ALANIS. NO POTENTIAL PATHOGENS SEEN.NormalAvita Health System Bucyrus HospitalComment on above:Performed By: #### URCX ####[facility] [address] [address]Dr. Grace RichardR URINE PROFILEon 03-27-6125Vanxsyxgo Ql (U)NegativeNormalNEGATIVEAvita Health System [facility] Comment on above:Performed By: #### CVDTBH #### [facility] [address] [place] [address] Dr. Grace Phelps (U)CLEARNormalCLEARThe [facility] CenterComment on above: Performed By: #### CVDTBH #### [facility] [address] [place] [address] Dr. Grace Powell (U)LT. YELLOWNormalYELLOWThe [facility] CenterComment on above:Performed By: #### CVDTBH #### [facility] [address] [place] [address] Dr. Grace Schmidt micrscopic examination will be performed if indicated. NormalAvita Health System Bucyrus HospitalComment on above:Performed By: #### CVDTBH #### [facility] [address] [place] [address] Dr. Grace Gilose Ql (U)NegativeNormalNEGATIVEAvita Health System Bucyrus HospitalComment on above:Performed By: #### CVDTBH #### [facility] [address] [address] [address] Grace AbdulHemoglobin Ql (U)SMALLAbnormmoNEGFulton County Health Center Comment on above:Performed By: #### CVDTBH #### [facility] [address] [address] [address] Grace AbdulKetones Ql (U)40 mg/dlAbnopending sale to novant healthNEGFulton County Health Center Comment on above:Performed By: #### CVDTBH #### [facility] [address] [place] [address] Dr. Grace BabbOCYTESSMALLAbnormalNEGATIVEAvita Health System [facility] HospitalComment on above:Performed By: #### CVDTBH #### [facility] [address] [place] [address] Dr. Grace AbdulNitrite Ql (U)NegativeNormalNEGATIVEAvita Health System Bucyrus HospitalComment on above:Performed By: #### CVDTBH #### [facility] [address] [place] [address] Dr. Grace bAdulpH (U)7.0 [pH]Normal5-9[facility] HospitalComment on above: Performed By: #### CVDTBH #### [facility] [address] [place] [address] Dr. Grace AbdulSPEC GRAVITY1.426Roqtbp6.005-<=1.025The [facility] CenterComment on above:Performed By: #### CVDTBH #### [facility] [address] [place] [address] Dr. Grace Cespedes PROTEINNegativeNormalNEGATIVE/ TRACEAvita Health System [facility] Comment on above:Performed By: #### CVDTBH #### [facility] [address] [place] [address] Dr. Grace Triplett MICRO INDINDICATEDNoalThBrecksville VA / Crille HospitalComment on above: Performed By: #### CVDTBH #### [facility] [address] [place] [address] Dr. Grace AbdulUrobilinogen Qn (U)0.2 {Ashley'U}/dLNormal0.2 - 1.0The [facility] CenterComment on above:Performed By: #### CVDTBH #### [facility] [address] [address] [address] Grace AbdulMAGNESIUMon 47-67-9656Yvhvckbtm [Mass/Vol]1.8 mg/dLNormal1.8-2.4 The [facility] CenterComment on above:Performed By: #### CVDTBH #### [facility] [address] [place] [address] Dr. Grace AbdulPROF CHEM 8 (BAS METB)on 46-79-7428Tlruk gap [Moles/Vol]12.7 mmol/LNormalThe [facility] CenterComment on above:Performed By: #### BMP #### [facility] [address] [place] [address] Dr. Grace AbdulCalcium [Mass/Vol]8.3 mg/dLCritically low8.5-10.1The [facility] CenterComment on above:Performed By: #### BMP #### [facility] [address] [place] [address] Dr. Grace AbdulCO2 [Moles/Vol]24.4 mmol/SLsoinu30.0-32.0The [facility] Comment on above:Performed By: #### BMP #### [facility] [address] [place] [address] Dr. Grace AbdulCreatinine [Mass/Vol]1.16 mg/dLCritically high0.55-1.02The [facility] CenterComment on above:Performed By: #### BMP #### [facility] [address] [place] [address] Dr. Grace RichardGFR-AF WHOGKOSS77 mL/min/1.86y5Itdllkfqpk low>=60The [facility] CenterComment on above:Performed By: #### BMP #### [facility] [address] [place] [address] Dr. Grace RichardGFR-NON AF ODEUZLTH75 mL/min/1.42p9Gunbbfyyut low>=60The [facility] HospitalComment on above:Performed By: #### BMP #### [facility] [address] [address] [address] Grace AbdulGlucose [Mass/Vol]116 mg/dLCritically vunq13-715Pee [facility] CenterComment on above:Performed By: #### BMP #### [facility] [address] [address] [address] Grace AbdulUrea nitrogen [Mass/Vol]20.0 mg/dLCritically high7.0-18.0The [facility] CenterComment on above:Performed By: #### BMP #### [facility] [address] [address] [address] Grace Bernal nitrogen/Creatinine [Mass ratio]17.2 mg/mgNormalThe [facility] CenterComment on above:Performed By: #### BMP #### [facility] [address] [address] [address] Grace Kauffmanon gap [Moles/Vol]10.0 mmol/LNormalAvita Health [facility] Comment on above:Performed By: #### BMP #### [facility] [address] [address] [address] Grace AbdulCalcium [Mass/Vol]8.8 mg/dLNormal8.5-10.1The [facility] Comment on above:Performed By: #### BMP #### [facility] [address] [address] [address] Grace AbdulChloride [Moles/Vol]96 mmol/LCritically ems37-132Xsi [facility] CenterComment on above:Performed By: #### BMP #### [facility] [address] [address] [address] Grace AbdulCO2 [Moles/Vol]26.1 mmol/XJehvmy01.0-32.0The [facility] Comment on above:Performed By: #### BMP #### [facility] [address] [address] [address] Grace AbdulCreatinine [Mass/Vol]1.11 mg/dLCritically high0.55-1.02The [facility] HospitalComment on above:Performed By: #### BMP #### [facility] [address] [address] [address] Grace RichardGFR-AF XQDGMAWZ96 mL/min/1.42o6Cmjpzukhyz low>=60The [facility] CenterComment on above:Performed By: #### BMP #### [facility] [address] [address] [address] Grace RichardGFR-NON AF IFOTXVCJ73 mL/min/1.15j3Blyoxoqjee low>=60The [facility] CenterComment on above:Performed By: #### BMP #### [facility] [address] [address] [address] Grace AbdulGlucose [Mass/Vol]94 mg/pPPyoxgv90-806Fek [facility] Comment on above:Performed By: #### BMP #### [facility] [address] [address] [address] Grace AbdulPotassium [Moles/Vol]3.1 mmol/LCritically low3.5-5.1The [facility] Hospitalment on above:Performed By: #### BMP #### [facility] [address] [address] [address] Grace AbdulPerformed By: #### CVDTBH #### [facility] [address] [address] [address] Grace AbdulSodium [Moles/Vol]129 mmol/LCritically vcx498-581Ngf [facility] CenterComment on above:Performed By: #### BMP #### [facility] [address] [address] [address] Grace AbdulUrea nitrogen [Mass/Vol]16.0 mg/dLNormal7.0-18.0The [facility] CenterComment on above:Performed By: #### BMP #### [facility] [address] [address] [address] Grace Bernal nitrogen/Creatinine [Mass ratio]14.4 mg/mgNormalThe [facility] CenterComment on above:Performed By: #### BMP #### [facility] [address] [address] [address] Grace Mosley gap [Moles/Vol]12.6 mmol/LNormalThe [facility] Comment on above:Performed By: #### CVDTBH #### [facility] [address] [place] [address] Dr. Grace AbdulCalcium [Mass/Vol]8.6 mg/dLNormal8.5-10.1The [facility] Comment on above:Performed By: #### CVDTBH #### [facility] [address] [place] [address] Dr. Grace AbdulChloride [Moles/Vol]95 mmol/LCritically srk34-022Swd [facility] CenterComment on above:Performed By: #### BMP #### [facility] [address] [place] [address] Dr. Grace AbdulPerformed By: #### CVDTBH #### [facility] [address] [place] [address] Dr. Grace AbdulCO2 [Moles/Vol]22.5 mmol/FIrabkx73.0-32.0The [facility] Comment on above:Performed By: #### CVDTBH #### [facility] [address] [place] [address] Dr. Grace AbdulCreatinine [Mass/Vol]0.95 mg/dLNormal0.55-1.02The [facility] CenterComment on above:Performed By: #### CVDTBH #### [facility] [address] [place] [address] Dr. Grace RichardGFR-AF EAST TIMORESE>60Normal>=60The [facility] CenterComment on above:Performed By: #### CVDTBH #### [facility] [address] [place] [address] Dr. Grace RichardGFR-NON AF ACQPKQSP02 mL/min/1.52o9Ywpvbjxonq low>=60The [facility] CenterComment on above:Performed By: #### CVDTBH #### [facility] [address] [place] [address] Dr. Grace AbdulGlucose [Mass/Vol]92 mg/gJHfasqe54-624Jwv [facility] Comment on above:Performed By: #### CVDTBH #### [facility] [address] [address] [address] Grace Kaurum [Moles/Vol]127 mmol/LCritically isp583-629Mdr [facility] CenterComment on above:Performed By: #### CVDTBH #### [facility] [address] [address] [address] Grace Bernal nitrogen [Mass/Vol]18.0 mg/dLNormal7.0-18.0The [facility] CenterComment on above:Performed By: #### CVDTBH #### [facility] [address] [address] [address] Grace Bernal nitrogen/Creatinine [Mass ratio]18.9 mg/mgNoParkview Health Montpelier HospitalComment on above:Performed By: #### CVDTBH #### [facility] [address] [place] [address] Dr. Grace Marcos MICROSCOPIC ONLYon 12-07-7421SRCSTNAIKWPEGRouiyfszDHGK SEEN The [facility] CenterComment on above:Performed By: #### CVDTBH #### [facility] [address] [place] [address] Dr. Grace Bella identified Cx Nom (U)INDICATEDNoParkview Health Montpelier HospitalComment on above:Performed By: #### CVDTBH #### [facility] [address] [address] [address] Grace Alexandra SEENNormalNONE SEENAvita Health System Bucyrus HospitalComment on above:Performed By: #### CVDTBH #### [facility] [address] [address] [address] Grace Sood LM Nom (Urine sed)NONE SEENNormalNONE SEENAvita Health System Bucyrus HospitalComhenry ford [facility] on above:Performed By: #### CVDTBH #### [facility] Laboratory [address] [place] [address] Dr. Edwards ChangEpithelial cells LM Ql (Urine sed)FEWAbnormalNONE SEEN /RAREThe [facility] Medical CenterComment on above:Performed By: #### CVDTBH #### [facility] [address] [place] [address] Dr. Grace SantosCOUSVIKKI SEENNormalNONE SEENThe [facility] CenterComment on above:Performed By: #### CVDTBH #### [facility] [address] [place] [address] Dr. Grace AbdulOeydjIMX1-3Rzgdzmls8-2Ity [facility] CenterComment on above:Performed By: #### CVDTBH #### [facility] [address] [place] [address] Dr. Grace AbdulWBC5-10AbnormalNONE SEENThe [facility] CenterComment on above: Performed By: #### CVDTBH #### [facility] [address] [place] [address] Dr. Grace AbdulAMYLASEon 18-36-1448Psbkfsk [Catalytic activity/Vol]94 U/LNormal 25-115The [facility] CenterComment on above:Performed By: #### CVDTBH #### [facility] [address] [place] [address] Dr. Grace Arndt [id number] peptide B (Bld) [Mass/Vol]357.0 pg/mL Normal<=1,800.0The [facility] on above:Performed By: #### CVDTBH #### [facility] [address] [place] [address] Dr. Grace Oreilly JOVITA ADMITon 91-64-4319GN [Catalytic activity/Vol]66 U/L Wvddjr43-987Uaw [facility] CenterComment on above:Performed By: #### CVDTBH #### [facility] [address] [place] [address] Dr. Grace Dawn.MB [Mass/Vol]2.19 ng/mLNormal<=3.60The [facility] on above:Performed By: #### CVDTBH #### [facility] [address] [place] [address] Dr. Grace DaoTROP9.5 pg/mLNormal4.0-51.3The [facility] Hospitalment on above:Result Comment: CUT-OFF POINTS HAVE BEEN ESTABLISHED BASED ON THE FOURTH UNIVERSAL DEFINITIONS OF MYOCARDIAL INFARCTION. THE UPPER REFERENCE LIMIT (URL) OF TROPONIN, DEFINED THE 99TH PERCENTILE OF cTnI DISTRIBUTION IN A REFERENCE POPULATION, HAS BEEN CONFIRMED THE DECISION THRESHOLD FOR [place] DIAGNOSIS.Performed By: #### CVDTBH #### [facility] [address] [place] [address] Dr. Grace Woods73 ng/mLNormal9-82The [facility] CenterComment on above: Performed By: #### CVDTBH #### [facility] [address] [place] [address] Dr. Grace Casey AUTO DIFFon 20-76-3461MHJC #0.0 103/ulNormal0.0-0.1The [facility]ment on above:Performed By: #### BMP #### [facility] [address] [place] [address] Dr. Grace AbdulBasophils/100 WBC (Bld)0.1 %Critically low0.2-2.0The [facility] CenterComment on above:Performed By: #### BMP #### [facility] [address] [place] [address] Dr. Grace Blunt #0.0 103/ulNormal0.0-0.7The [facility] CenterComhenry [facility] on above: Performed By: #### BMP #### [facility] [address] [place] [address] Dr. Grace Richardosinophils/100 WBC (Bld)0.1 %Critically low0.9-7.0The [facility]ment on above:Performed By: #### BMP #### [facility] [address] [place] [address] Dr. Grace Richardrythrocyte distribution width (RBC) [Ratio]11.9 %Vomomr56.0-15.0 The [facility]ment on above:Performed By: #### BMP #### [facility] [address] [address] [address] Grace AbdulHematocrit (Bld) [Volume fraction]36.6 %Ulykjf82.0-48.0The [facility] CenterComment on above:Performed By: #### BMP #### [facility] [address] [place] [address] Dr. Grace AbdulHemoglobin (Bld) [Mass/Vol]13.2 g/kYVuzbbc42.0-16.0The [facility] CenterComment on above:Performed By: #### BMP #### [facility] [address] [place] [address] Dr. Grace AbdulIG #0.05 10e3/ulCritically high0.00-0.03The [facility] Comment on above:Performed By: #### BMP #### [facility] [address] [place] [address] Dr. Grace AbdulIG %0.7 %Critically high0.0-0.5The [facility] CenterComment on above:Performed By: #### BMP #### [facility] [address] [address] [address] Grace Hamilton #0.7 103/ulCritically low1.2-3.8The [facility] Comment on above:Performed By: #### BMP #### [facility] [address] [place] [address] Dr. Grace Hillmphocytes/100 WBC (Bld)9.8 %Critically low20.5-60.0The [facility] CenterComment on above:Performed By: #### BMP #### [facility] [address] [place] [address] Dr. Grace AbdulMANUAL DIFF REQNONormalThe [facility] CenterComment on above: Performed By: #### BMP #### [facility] [address] [place] [address] Dr. Grace Joy (RBC) [Entitic mass]31.5 enIdpqbx47.7-34.0The [facility] CenterComment on above:Performed By: #### BMP #### [facility] [address] [address] [address] Grace PerdomoHC (RBC) [Mass/Vol]36.1 g/dLCritically high29.9-35.2The [facility] CenterComment on above:Performed By: #### BMP #### [facility] [address] [place] [address] Dr. Grace PerdomoV (RBC) [Entitic vol]87.4 pTIeeplv34.0-99.0The [facility] CenterComment on above:Performed By: #### BMP #### [facility] [address] [place] [address] Dr. Grace Barrios #0.9 103/ulCritically high0.3-0.8The [facility] Comment on above:Performed By: #### BMP #### [facility] [address] [place] [address] Dr. Grace Riderocytes/100 WBC (Bld)12.4 %Critically high1.7-12.0The [facility] CenterComment on above:Performed By: #### BMP #### [facility] [address] [place] [address] Dr. Grace Brar #5.8 103/ulNormal1.4-6.5The [facility] CenterComment on above:Performed By: #### BMP #### [facility] [address] [place] [address] Dr. Grace Solitarioutrophils/100 WBC (Bld)76.9 %Critically high43.0-75.0The [facility] CenterComment on above:Performed By: #### BMP #### [facility] [address] [place] [address] Dr. Grace Stokeslet mean volume (Bld) [Entitic vol]9.0 fLCritically low 9.5-13.5The [facility] CenterComment on above:Performed By: #### BMP #### [facility] [address] [place] [address] Dr. Grace AbdulPLT361 103/saYrxbis498-672Gwp [facility] CenterComment on above: Performed By: #### BMP #### [facility] [address] [place] [address] Dr. Grace AbdulRBC4.19 106/ulCritically low4.20-5.40The [facility] CenterComment on above:Performed By: #### BMP #### [facility] [address] [place] [address] Dr. Grace AbdulWBC7.6 103/ulNormal4.0-11.0The [facility] CenterComment on above: Performed By: #### BMP #### [facility] [address] [place] [address] Dr. Grace AbdulCovid-19 PCR (CVDTB)on 89-64-5163SAJJ-CoV-2 (COVID-19) RNA LUISITO+probe Ql (Unsp spec)Not detectedNormalNOT DETECTEDThe [facility] Comment on above:Result Comment: When diagnostic testing [...] for this test is supported by the [place] of Health and Human Service's declaration that [...] longer be used).Performed By: #### CVDTBH #### [facility] [address] [place] [address] Dr. Grace AbdulLIPASEon 21-80-8986Dvvasc [Catalytic activity/Vol]178.0 U/LNormal 73.0-393.0The [facility] CenterComment on above:Performed By: #### CVDTBH #### [facility] [address] [place] [address] Dr. Grace ArmendarizF 14(COMP METB)on 72-36-2385Hiizotu [Mass/Vol]4.1 g/dLNormal 3.4-5.0The [facility] CenterComment on above:Performed By: #### CVDTBH #### [facility] [address] [address] [address] Grace AbdulAlbumin/Globulin [Mass ratio]1.2 {ratio}NormalThe [facility] Medical CenterComment on above:Performed By: #### CVDTBH #### [facility] [address] [address] [address] Grace Wilcox [Catalytic activity/Vol]63 U/MHzdezg28-247Prp [facility] CenterComment on above:Performed By: #### CVDTBH #### [facility] [address] [address] [address] Grace CalderonT [Catalytic activity/Vol]29 U/MIvfqvm91-48Hsz [facility] CenterComment on above:Performed By: #### CVDTBH #### [facility] [address] [address] [address] Grace Mosley gap [Moles/Vol]14.8 mmol/LNormalThe [facility] Comment on above:Performed By: #### CVDTBH #### [facility] [address] [address] [address] Grace AbdulAST [Catalytic activity/Vol]25 U/MHagszj49-21Hqd [facility] CenterComment on above:Performed By: #### CVDTBH #### [facility] [address] [address] [address] Grace AbdulBilirubin [Mass/Vol]0.6 mg/dLNormal0.2-1.0The [facility] Comment on above:Performed By: #### CVDTBH #### [facility] [address] [address] [address] Grace AbdulCalcium [Mass/Vol]9.4 mg/dLNormal8.5-10.1[facility] Comment on above:Performed By: #### CVDTBH #### [facility] [address] [address] [address] Grace AbdulChloride [Moles/Vol]83 mmol/LCritically rpk36-762Qah [facility] CenterComment on above:Performed By: #### CVDTBH #### [facility] [address] [address] [address] Grace AbdulCO2 [Moles/Vol]24.4 mmol/CUupatu03.0-32.0The [facility] Comment on above:Performed By: #### CVDTBH #### [facility] [address] [address] [address] Grace AbdulCreatinine [Mass/Vol]1.15 mg/dLCritically high0.55-1.02The [facility] CenterComment on above:Performed By: #### CVDTBH #### [facility] [address] [place] [address] Dr. Edwards ChangEGFR-AF AHKCSKXS60 mL/min/1.48u7Ungptzjzic low>=60The [facility] CenterComment on above:Performed By: #### CVDTBH #### [facility] [address] [address] [address] Grace RichardGFR-NON AF UAXACMUQ76 mL/min/1.03h6Xmluwvcoql low>=60The [facility] CenterComment on above:Performed By: #### CVDTBH #### [facility] [address] [address] [address] Grace AbdulGlobulin (S) [Mass/Vol]3.4 g/dLNormalThe [facility] CenterComment on above:Performed By: #### CVDTBH #### [facility] [address] [address] [address] Grace AbdulGlucose [Mass/Vol]147 mg/dLCritically sarb15-028Vxm [facility] CenterComment on above:Performed By: #### CVDTBH #### [facility] [address] [place] [address] Dr. Grace AbdulPotassium [Moles/Vol]3.2 mmol/LCritically low3.5-5.1The [facility] CenterComment on above:Performed By: #### CVDTBH #### [facility] [address] [address] [address] Grace AbdulProtein [Mass/Vol]7.5 g/dLNormal6.4-8.2The [facility] Comment on above:Performed By: #### CVDTBH #### [facility] [address] [address] [address] Grace AbdulUrea nitrogen/Creatinine [Mass ratio]21.7 mg/mgNormalThe [facility] CenterComment on above:Performed By: #### CVDTBH #### [facility] [address] [place] [address] Dr. Grace AbdulPROF CHEM 8 (BAS METB)on 75-57-3874Irnps gap [Moles/Vol]13.6 mmol/LNormalThe [facility] CenterComment on above:Performed By: #### CVDTBH #### [facility] [address] [place] [address] Dr. Grace AbdulCalcium [Mass/Vol]8.8 mg/dLNormal8.5-10.1[facility] Comment on above:Performed By: #### CVDTBH #### [facility] [address] [place] [address] Dr. Grace AbdulChloride [Moles/Vol]88 mmol/LCritically jiw03-739BdvAvita Health System Bu[facility]rus HospitalComment on above:Performed By: #### CVDTBH #### [facility] [address] [place] [address] Dr. Grace AbdulCO2 [Moles/Vol]21.8 mmol/ICpdxxe96.0-32.0The [facility] Comment on above:Performed By: #### CVDTBH #### [facility] [address] [place] [address] Dr. Grace AbdulCreatinine [Mass/Vol]1.11 mg/dLCritically high0.55-1.02[facility] HospitalComment on above:Performed By: #### CVDTBH #### [facility] [address] [address] [address] Edwards ChangEGFR-AF QPGZWGXK98 mL/min/1.21p6Nhhloshrjm low>=60The [facility] CenterComment on above:Performed By: #### CVDTBH #### [facility] [address] [address] [address] Grace RichardGFR-NON AF GSYIVOOS97 mL/min/1.25i0Jihgaawgxb low>=60The [facility] CenterComment on above:Performed By: #### CVDTBH #### [facility] [address] [place] [address] Dr. Grace AbdulGlucose [Mass/Vol]132 mg/dLCritically ygws67-416Gtq [facility] on above:Performed By: #### CVDTBH #### [facility] [address] [place] [address] Dr. Grace AbdulPotassium [Moles/Vol]3.4 mmol/LCritically low3.5-5.1The [facility] CenterComment on above:Performed By: #### CVDTBH #### [facility] [address] [place] [address] Dr. Grace AbdulSodium [Moles/Vol]120 mmol/LCritically npz289-129Clx [facility] on above:Result Comment: Test Repeated. Critical Value Verified Performed By: #### CVDTBH #### [facility] [address] [place] [address] Dr. Grace AbdulUrea nitrogen [Mass/Vol]25.0 mg/dLCritically high7.0-18.0The [facility] on above:Performed By: #### CVDTBH #### [facility] [address] [place] [address] Dr. Grace AbdulUrea nitrogen/Creatinine [Mass ratio]22.5 mg/mgNormalThe [facility] CenterComhenry [facility] on above:Performed By: #### CVDTBH #### [facility] [address] [place] [address] Dr. Grace AbdulPROTIMEjustina 08-05-8392UES Coag (PPP) [Relative time]0.94 {INR} NormalUniversity Hospitals TriPoint Medical Centerment on above:Performed By: #### CVDTBH #### [facility] [address] [address] [address] Grace KellyR GUIDELINESSEE UC HealthComment on above:Result Comment: DESIRED INR: 2.0 - 3.0 CONDITIONS NOT LISTED BELOW 2.5 - 3.5 FOR PROSTHETIC HEART VALVE REPLACEMENT 2.5 - 3.5 RECURRENT THROMBOSIS Performed By: #### CVDTBH #### [facility] [address] [id number] [address] Grace AbdulPT Coag (PPP) [Time]10.2 sNormal9.0-11.6The [facility] Comment on above:Performed By: #### CVDTBH #### [facility] [address] [address] [address] Grace AbdulXR ABD FLAT UP_PA Sergio 84-75-6497RR ABD FLAT UP_PA CHX-RAY ABDOMINAL WITH CHEST. [...] Electronically authenticated by: JARET LINARES Date: 2021-11-15 13:[address] [place], [place] [address]BNPon 89-22-5950Vomkbfkjpmc peptide B (Bld) [Mass/Vol]546.0 pg/mLNormal<=1,800.0The [facility] on above:Performed By: #### CMP, TSH, HSTROPN, BNP ####[facility] [address] [place], [place] [address]WgDr. Grace Casey AUTO DIFFon 48-57-6967HJMI #0.0 103/ulNormal0.0-0.1The [facility] HospitalComment on above:Performed By: #### CBC #### [facility] [address] [place] [address] Dr. Grace AbdulBasophils/100 WBC (Bld)0.3 %Normal0.2-2.0The [facility] on above:Performed By: #### CBC #### [facility] [address] [place] [address] Dr. Grace Blunt #0.0 103/ulNormal0.0-0.7The [facility] CenterComment on above: Performed By: #### CBC #### [facility] [address] [place] [address] Dr. Grace Richardosinophils/100 WBC (Bld)0.5 %Critically low0.9-7.0The [facility] CenterComment on above:Performed By: #### CBC #### [facility] [address] [place] [address] Dr. Grace Richardrythrocyte distribution width (RBC) [Ratio]12.9 %Xbnfox20.0-15.0 The [facility] CenterComment on above:Performed By: #### CBC #### [facility] [address] [place] [address] Dr. Grace AbdulHematocrit (Bld) [Volume fraction]36.1 %Lcldbf35.0-48.0The [facility] CenterComment on above:Performed By: #### CBC #### [facility] [address] [place] [address] Dr. Grace AbdulHemoglobin (Bld) [Mass/Vol]12.3 g/oPWeeptk90.0-16.0The [facility] CenterComment on above:Performed By: #### CBC #### [facility] [address] [place] [address] Dr. Grace Son #0.01 10e3/ulNormal0.00-0.03The [facility] CenterComment on above:Performed By: #### CBC #### [facility] [address] [place] [address] Dr. Grace Son %0.3 %Normal0.0-0.5The [facility] CenterComment on above: Performed By: #### CBC #### [facility] [address] [place] [address] Dr. Grace Hamilton #0.6 103/ulCritically low1.2-3.8The [facility] Comment on above:Performed By: #### CBC #### [facility] [address] [place] [address] Dr. Grace Willishocytes/100 WBC (Bld)14.8 %Critically low20.5-60.0The [facility] CenterComment on above:Performed By: #### CBC #### [facility] [address] [place] [address] Dr. Grace Gee DIFF REQNONormalThe [facility] CenterComment on above: Performed By: #### CBC #### [facility] [address] [place] [address] Dr. Grace Joy (RBC) [Entitic mass]31.5 tcFhursj82.7-34.0The [facility] CenterComment on above:Performed By: #### CBC #### [facility] [address] [place] [address] Dr. Grace Perdomo (RBC) [Mass/Vol]34.1 g/hITujvgn71.9-35.2The [facility] CenterComment on above:Performed By: #### CBC #### [facility] [address] [place] [address] Dr. Grace Serrano (RBC) [Entitic vol]92.6 yZVzutgd97.0-99.0The [facility] CenterComment on above:Performed By: #### CBC #### [facility] [address] [place] [address] Dr. Grace Barrios #0.5 103/ulNormal0.3-0.8The [facility] CenterComment on above:Performed By: #### CBC #### [facility] [address] [place] [address] Dr. Grace Riderocytes/100 WBC (Bld)13.5 %Critically high1.7-12.0The [facility] CenterComment on above:Performed By: #### CBC #### [facility] [address] [place] [address] Dr. Grace Brar #2.7 103/ulNormal1.4-6.5The [facility] CenterComment on above:Performed By: #### CBC #### [facility] [address] [place] [address] Dr. Grace Solitarioutrophils/100 WBC (Bld)70.6 %Vumibp07.0-75.0The [facility] CenterComment on above:Performed By: #### CBC #### [facility] [address] [place] [address] Dr. Grace AbdulPlatelet mean volume (Bld) [Entitic vol]9.2 fLCritically low 9.5-13.5The [facility] CenterComment on above:Performed By: #### CBC #### [facility] [address] [place] [address] Dr. Grace AbdulPLT279 103/yvZfxmsi041-375Mev [facility] CenterComhenry [facility] on above: Performed By: #### CBC #### [facility] [address] [place] [address] Dr. Grace AbdulRBC3.90 106/ulCritically low4.20-5.40The [facility] on above:Performed By: #### CBC #### [facility] [address] [place] [address] Dr. Grace AbdulWBC3.9 103/ulCritically low4.0-11.0The [facility] CenterComment on above:Performed By: #### CBC #### [facility] [address] [place] [address] Dr. Grace AbdulPROF 14(COMP METB)on 98-28-7832Xvqswia [Mass/Vol]3.3 g/dL Critically low3.4-5.0The [facility] CenterComment on above:Performed By: #### CMP, TSH, HSTROPN, BNP #### [facility] [address] [place] [address] Dr. Grace AbdulAlbumin/Globulin [Mass ratio]1.2 {ratio}NormalThe [facility] CenterComment on above:Performed By: #### CMP, TSH, HSTROPN, BNP #### [facility] [address] [place] [address] Dr. Grace CalderonP [Catalytic activity/Vol]60 U/HEpzlan75-989Etc [facility] CenterComment on above:Performed By: #### CMP, TSH, HSTROPN, BNP #### [facility] [address] [place] [address] Dr. Grace Restrepo [Catalytic activity/Vol]26 U/WTmzlin93-96Hmz [facility] CenterComment on above:Performed By: #### CMP, TSH, HSTROPN, BNP #### [facility] [address] [place] [address] Dr. Grace Kauffmanon gap [Moles/Vol]14.8 mmol/LNormalThe [facility] Comment on above:Performed By: #### CMP, TSH, HSTROPN, BNP #### [facility] [address] [place] [address] Dr. Grace AbdulAST [Catalytic activity/Vol]20 U/PMjgfqx15-12Vdk [facility]ment on above:Performed By: #### CMP, TSH, HSTROPN, BNP #### [facility] [address] [place] [address] Dr. Grace AbdulBilirubin [Mass/Vol]0.3 mg/dLNormal0.2-1.0The [facility] Comment on above:Performed By: #### CMP, TSH, HSTROPN, BNP #### [facility] [address] [place] [address] Dr. Grace AbdulCalcium [Mass/Vol]8.2 mg/dLCritically low8.5-10.1The [facility] CenterComment on above:Performed By: #### CMP, TSH, HSTROPN, BNP #### [facility] [address] [place], [place] [id number] Dr. Grace AbdulChloride [Moles/Vol]100 mmol/YItouxa98-308Gas [facility] Comment on above:Performed By: #### CMP, TSH, HSTROPN, BNP #### [facility] [address] [place] [address] Dr. Grace AbdulCO2 [Moles/Vol]23.8 mmol/QCilmfy49.0-32.0The [facility] Comment on above:Performed By: #### CMP, TSH, HSTROPN, BNP #### [facility] [address] [place] [address] Dr. Grace AbdulCreatinine [Mass/Vol]1.27 mg/dLCritically high0.55-1.02[facility] HospitalComment on above:Performed By: #### CMP, TSH, HSTROPN, BNP #### [facility] [address] [place] [address] Dr. Grace RichardGFR-AF JUHITUNZ56 mL/min/1.14s1Gyubjjeuqg low>=60The [facility] CenterComment on above:Performed By: #### CMP, TSH, HSTROPN, BNP #### [facility] [address] [place] [address] Dr. Grace Byrd-NON AF RVJUWYPZ97 mL/min/1.89m9Tccttwvrew low>=60The [facility] CenterComment on above:Performed By: #### CMP, TSH, HSTROPN, BNP #### [facility] [address] [place] [address] Dr. Grace AbdulGlobulin (S) [Mass/Vol]2.7 g/dLNormalThe [facility] CenterComment on above:Performed By: #### CMP, TSH, HSTROPN, BNP #### [facility] [address] [place] [address] Dr. Grace AbdulGlucose [Mass/Vol]116 mg/dLCritically rmst34-222Erh [facility] CenterComment on above:Performed By: #### CMP, TSH, HSTROPN, BNP #### [facility] [address] [place] [address] Dr. Grace AbdulPotassium [Moles/Vol]3.6 mmol/LNormal3.5-5.1The [facility] Comment on above:Performed By: #### CMP, TSH, HSTROPN, BNP #### [facility] [address] [address] [address] Grace AbdulProtein [Mass/Vol]6.0 g/dLCritically low6.4-8.2The [facility] CenterComment on above:Performed By: #### CMP, TSH, HSTROPN, BNP #### [facility] [address] [address] [address] Grace AbdulSodium [Moles/Vol]135 mmol/LCritically bvo834-738Ugj [facility] CenterComment on above:Performed By: #### CMP, TSH, HSTROPN, BNP #### [facility] [address] [place] [address] Dr. Grace AbdulUrea nitrogen [Mass/Vol]25.0 mg/dLCritically high7.0-18.0The [facility] CenterComment on above:Performed By: #### CMP, TSH, HSTROPN, BNP #### [facility] [address] [place] [address] Dr. Grace Bernal nitrogen/Creatinine [Mass ratio]19.7 mg/mgNoParkview Health Montpelier HospitalComment on above:Performed By: #### CMP, TSH, HSTROPN, BNP #### [facility] [address] [place] [address] Dr. Grace AbdulPROTIMEjustina 76-33-6659OWK Coag (PPP) [Relative time]0.95 {INR} NormalThe [facility] CenterComment on above:Performed By: #### BMP #### [facility] [address] [place] [address] Dr. Grace Ayala GUIDELINESSEE BELOWAshtabula County Medical CenterComment on above:Result Comment: DESIRED INR: 2.0 - 3.0 CONDITIONS NOT LISTED BELOW 2.5 - 3.5 FOR PROSTHETIC HEART VALVE REPLACEMENT 2.5 - 3.5 RECURRENT THROMBOSIS Performed By: #### BMP #### [facility] [address] [place], [place] [address] Dr. Graec Robles Coag (PPP) [Time]10.3 sNormal9.0-11.6The [facility] Comment on above:Performed By: #### BMP #### [facility] [address] [place], [place] [address] Dr. Grace Vlila 82-66-0006mKHA Coag (Bld) [Time]21.3 sCritically low 22.3-36.2The [facility] CenterComment on above:Performed By: #### BMP #### [facility] [address] [address] [address] Grace Bland HIGH SENSITIVITYon 68-45-6773OYLNNL6.5 pg/mLNormal 4.0-51.3The [facility] CenterComment on above:Result Comment: CUT-OFF POINTS HAVE BEEN ESTABLISHED BASED ON THE FOURTH UNIVERSAL DEFINITIONS OF MYOCARDIAL INFARCTION. THE UPPER REFERENCE LIMIT (URL) OF TROPONIN, DEFINED THE 99TH PERCENTILE OF cTnI DISTRIBUTION IN A REFERENCE POPULATION, HAS BEEN CONFIRMED THE DECISION THRESHOLD FOR [place] DIAGNOSIS.Performed By: #### CMP, TSH, HSTROPN, BNP #### [facility] [facility] [id number] Grace Vivas 22-87-2084DCO3.140 uIU/mLNormal0.358-3.740The [facility]c Medical CenterComment on above:Performed By: #### CMP, TSH, HSTROPN, BNP ####[facility] Xspr[address]ph[address] [place], [place] [address]BuDr. Grace AbdulXR CHEST 1 Von 29-32-2781IO CHEST 1 VEXAMINATION: XR CHEST 1 V [...] Electronically authenticated by: KRANTHI CONNORS Date: 2021-11-11 13:34NoParkview Health Montpelier HospitalCARDIAC JOVITA ADMITon 89-85-9922MZ [Catalytic activity/Vol]89 U/DIishhm10-228Oqr [facility] Medical CenterComment on above:Performed By: #### CVDTBH #### [facility] [address] [address] [address] Grace Dawn.MB [Mass/Vol]1.92 ng/mLNormal<=3.60[facility] Comment on above:Performed By: #### CVDTBH #### [facility] [address] [address] [address] Grace DaoTROP5.7 pg/mLNormal4.0-51.3The [facility]c Medical CenterComment on above:Result Comment: CUT-OFF POINTS HAVE BEEN ESTABLISHED BASED ON THE FOURTH UNIVERSAL DEFINITIONS OF MYOCARDIAL INFARCTION. THE UPPER REFERENCE LIMIT (URL) OF TROPONIN, DEFINED THE 99TH PERCENTILE OF cTnI DISTRIBUTION IN A REFERENCE POPULATION, HAS BEEN CONFIRMED THE DECISION THRESHOLD FOR [place] DIAGNOSIS.Performed By: #### CVDTBH #### [facility] [address] [address] [address] Grace Woods86 ng/mLCritically high9-82The [facility] Medical CenterComment on above:Performed By: #### CVDTBH #### [facility] [address] [address] [address] Graec Casey AUTO DIFFon 35-08-0913PKSQ #0.0 103/ulNormal0.0-0.1The [facility] Medical CenterComment on above:Performed By: #### CVDTBH #### [facility] [address] [address] [address] Grace AbdulBasophils/100 WBC (Bld)0.5 %Normal0.2-2.0[facility] Comment on above:Performed By: #### CVDTBH #### [facility] [address] [address] [address] Grace Blunt #0.0 103/ulNormal0.0-0.7The [facility] Medical CenterComment on above: Performed By: #### CVDTBH #### [facility] [address] [place] [address] Dr. Grace Richardosinophils/100 WBC (Bld)0.7 %Critically low0.9-7.0The [facility] Medical CenterComment on above:Performed By: #### CVDTBH #### [facility] [address] [place] [address] Dr. Grace Richardrythrocyte distribution width (RBC) [Ratio]13.2 %Tgipee04.0-15.0 The [facility] Medical CenterComment on above:Performed By: #### CVDTBH #### [facility] [address] [place] [address] Dr. Grace AbdulHematocrit (Bld) [Volume fraction]34.8 %Critically low36.0-48.0 The [facility] Medical CenterComment on above:Performed By: #### CVDTBH #### [facility] [address] [place] [address] Dr. Grace AbdulHemoglobin (Bld) [Mass/Vol]11.9 g/dLCritically low12.0-16.0The [facility] Medical CenterComment on above:Performed By: #### CVDTBH #### [facility] [address] [place] [address] Dr. Grace Son #0.01 10e3/ulNormal0.00-0.03The [facility] Medical CenterComment on above:Performed By: #### CVDTBH #### [facility] [address] [place] [address] Dr. Grace Son %0.2 %Normal0.0-0.5The [facility] Medical CenterComment on above: Performed By: #### CVDTBH #### [facility] [address] [place] [address] Dr. Grace WillisH #0.6 103/ulCritically low1.2-3.8The [facility] Comment on above:Performed By: #### CVDTBH #### [facility] [address] [place] [address] Dr. Grace Hillmphocytes/100 WBC (Bld)14.2 %Critically low20.5-60.0The [facility] Medical CenterComment on above:Performed By: #### CVDTBH #### [facility] [address] [place] [address] Dr. Grace FloresUAL DIFF REQNONormalThe [facility]c Medical CenterComment on above: Performed By: #### CVDTBH #### [facility] [address] [place] [address] Dr. Grace Perdomo (RBC) [Entitic mass]31.5 ulFdvsyr16.7-34.0The [facility] Medical CenterComment on above:Performed By: #### CVDTBH #### [facility] [address] [place] [address] Dr. Grace Perdomo (RBC) [Mass/Vol]34.2 g/fZPmbigo39.9-35.2The [facility] CenterComment on above:Performed By: #### CVDTBH #### [facility] [address] [place] [address] Dr. Grace Perdomo (RBC) [Entitic vol]92.1 vXQpijkp38.0-99.0The [facility] Medical CenterComment on above:Performed By: #### CVDTBH #### [facility] [address] [place] [address] Dr. Grace Barrios #0.7 103/ulNormal0.3-0.8The [facility] Medical CenterComment on above:Performed By: #### CVDTBH #### [facility] [address] [place] [address] Dr. Grace Riderocytes/100 WBC (Bld)15.6 %Critically high1.7-12.0The [facility] Medical CenterComment on above:Performed By: #### CVDTBH #### [facility] [address] [place] [address] Dr. Grace Brar #3.0 103/ulNormal1.4-6.5The [facility] Medical CenterComment on above:Performed By: #### CVDTBH #### [facility] [address] [place] [address] Dr. Grace Solitarioutrophils/100 WBC (Bld)68.8 %Aibxds09.0-75.0The [facility] Medical CenterComment on above:Performed By: #### CVDTBH #### [facility] [address] [place] [address] Dr. Grace AbdulPlatelet mean volume (Bld) [Entitic vol]9.5 fLNormal9.5-13.5The [facility] CenterComment on above:Performed By: #### CVDTBH #### [facility] [address] [place] [address] Dr. Grace AbdulPLT303 103/taQgctjp449-450Wbt [facility] Medical CenterComment on above: Performed By: #### CVDTBH #### [facility] [address] [place] [address] Dr. Grace AbdulRBC3.78 106/ulCritically low4.20-5.40The [facility] Medical CenterComment on above:Performed By: #### CVDTBH #### [facility] [address] [place] [address] Dr. Grace AbdulWBC4.4 103/ulNormal4.0-11.0The [facility] Medical CenterComment on above: Performed By: #### CVDTBH #### [facility] [address] [place] [address] Dr. Grace AbdulCT HEAD WO CONon 03-99-7252FP HEAD WO CONEXAMINATION: CT HEAD WO CON [...] Electronically authenticated by: KRANTHI CONNORS Date: 2021-09-13 13:24NoParkview Health Montpelier HospitalCovid-19 PCR (CVDTBH)on 63-02-7779BGVR-CoV-2 (COVID-19) RNA LUISITO+probe Ql (Unsp spec)Not detectedNormalNOT DETECTEDAv[facility] Comment on above:Result Comment: When diagnostic [...] for this test is supported by the Parts Salesman of Health and Human Service's declaration that [...] longer be used).Performed By: #### CVDTBH #### [facility] [address] [place] [address] Dr. Edwards ChangEJimenez URINE PROFILEon 38-89-5601Eetbhvtsy Ql (U)NegativeNormal NEGATIVEAvita Health System Bucyrus HospitalComment on above:Performed By: #### BMP #### [facility] [address] [address] [address] Grace Phelsp (U)CLEARNormalCLEARAvita Health System Bucyrus HospitalComment on above: Performed By: #### BMP #### [facility] [address] [place] [address] Dr. Grace Powell (U)LT. YELLOWNormalYELLOWAvita Health System Bucyrus HospitalComment on above:Performed By: #### BMP #### [facility] [address] [place] [address] Dr. Grace Schmidt micrscopic examination will be performed if indicated. NormalAvita Health System Bucyrus HospitalComment on above:Performed By: #### BMP #### [facility] [address] [address] [address] Grace AbdulGlucose Ql (U)NegativeNormalNEGATIVEAvita Health System Bucyrus HospitalComment on above:Performed By: #### BMP #### [facility] [address] [place] [address] Dr. Grace AbdulHemoglobin Ql (U)NegativeNormalNEGFulton County Health Center Comment on above:Performed By: #### BMP #### [facility] [address] [place] [address] Dr. Grace AbdulKetones Ql (U)TRACEAbnormalNEGATIVEAvita Health System Bucyrus HospitalComment on above:Performed By: #### BMP #### [facility] [address] [place] [address] Dr. Grace AbdulLEUKOCYTESTRACEAbnormalNEGATIVEAvita Health System Bu[facility]rus HospitalComment on above:Performed By: #### BMP #### [facility] [address] [place] [address] Dr. Grace AbdulNitrite Ql (U)NegativeNormalNEGATIVEAvita Health System Bucyrus HospitalComment on above:Performed By: #### BMP #### [facility] [address] [place] [address] Dr. Grace AbdulpH (U)8.0 [pH]Normal5-9[facility] HospitalComment on above: Performed By: #### BMP #### [facility] [address] [place] [address] Dr. Grace AbdulSPEC GRAVITY1.839Idrcyp6.005-<=1.025[facility] HospitalComment on above:Performed By: #### BMP #### [facility] [address] [place] [address] Dr. Grace AbdulUA PROTEINNegativeNormalNEGATIVE/ TRACEAvita Health System [facility] Hospital Comment on above:Performed By: #### BMP #### [facility] [address] [place] [address] Dr. Grace Triplett MICRO INDINDICATEDNormalThe [facility]c Medical CenterComment on above: Performed By: #### BMP #### [facility] [address] [place] [address] Dr. Grace AbdulUrobilinogen Qn (U)0.2 {Ashley'U}/dLNormal0.2 - 1.0The [facility] Medical CenterComment on above:Performed By: #### BMP #### [facility] [address] [place] [address] Dr. Grace AbdulPROF 14(COMP METB)on 70-70-2652Gmckagg [Mass/Vol]3.8 g/dLNormal 3.4-5.0The [facility] Medical CenterComment on above:Performed By: #### CVDTBH #### [facility] [address] [place] [address] Dr. Graec AbdulAlbumin/Globulin [Mass ratio]1.4 {ratio}NormalThe [facility] Medical CenterComment on above:Performed By: #### CVDTBH #### [facility] [address] [place] [address] Dr. Grace Wilcox [Catalytic activity/Vol]53 U/BVmztus99-625Vxh [facility] Hospitalment on above:Performed By: #### CVDTBH #### [facility] [address] [place] [address] Dr. Grace Restrepo [Catalytic activity/Vol]20 U/QCfhfpz96-87Omo [facility]uffton Hospitalment on above:Performed By: #### CVDTBH #### [facility] [address] [place] [address] Dr. Grace Mosley gap [Moles/Vol]12.0 mmol/LNormalThe [facility] on above:Performed By: #### CVDTBH #### [facility] [address] [place] [address] Dr. Grace Mortensen [Catalytic activity/Vol]18 U/HQcvfan83-01Twf [facility] HospitalComment on above:Performed By: #### CVDTBH #### [facility] [address] [address] [address] Grace AbdulBilirubin [Mass/Vol]0.4 mg/dLNormal0.2-1.0[facility] Comment on above:Performed By: #### CVDTBH #### [facility] [address] [place] [address] Dr. Grace AbdulCalcium [Mass/Vol]9.5 mg/dLNormal8.5-10.1The [facility] Comment on above:Performed By: #### CVDTBH #### [facility] [address] [place] [address] Dr. Grace AbdulChloride [Moles/Vol]99 mmol/ITlepyu72-633NuiAvita Health System [facility] Comment on above:Performed By: #### CVDTBH #### [facility] [address] [place] [address] Dr. Grace AbdulCO2 [Moles/Vol]28.1 mmol/BDkcutl99.0-32.0[facility] Comment on above:Performed By: #### CVDTBH #### [facility] [address] [place] [address] Dr. Grace AbdulCreatinine [Mass/Vol]1.25 mg/dLCritically high0.55-1.02The [facility] CenterComment on above:Performed By: #### CVDTBH #### [facility] [address] [place] [address] Dr. Grace RichardGFR-AF PYZIMDQM82 mL/min/1.32v4Txreayfyim low>=60The [facility] CenterComment on above:Performed By: #### CVDTBH #### [facility] [address] [place] [address] Dr. Grace RichardGFR-NON AF RROOOPTF92 mL/min/1.01b4Xzmcdnvtnm low>=60The [facility] CenterComment on above:Performed By: #### CVDTBH #### [facility] [address] [place] [address] Dr. Grace AbdulGlobulin (S) [Mass/Vol]2.7 g/dLNoParkview Health Montpelier HospitalComment on above:Performed By: #### CVDTBH #### [facility] [address] [place] [address] Dr. Grace AbdulGlucose [Mass/Vol]131 mg/dLCritically ennk26-586Qum [facility] CenterComment on above:Performed By: #### CVDTBH #### [facility] [address] [place] [address] Dr. Grace AbdulPotassium [Moles/Vol]4.1 mmol/LNormal3.5-5.1The [facility] Comment on above:Performed By: #### CVDTBH #### [facility] [address] [place] [address] Dr. Grace AbdulProtein [Mass/Vol]6.5 g/dLNormal6.4-8.2The [facility] Comment on above:Performed By: #### CVDTBH #### [facility] [address] [place] [address] Dr. Grace AbdulSodium [Moles/Vol]135 mmol/LCritically xsh898-906Wkz [facility] Medical CenterComment on above:Performed By: #### CVDTBH #### [facility] [address] [place] [address] Dr. Grace AbdulUrea nitrogen [Mass/Vol]33.0 mg/dLCritically high7.0-18.0The [facility] CenterComment on above:Performed By: #### CVDTBH #### [facility] [address] [place] [address] Dr. Grace AbdulUrea nitrogen/Creatinine [Mass ratio]26.4 mg/mgNoParkview Health Montpelier HospitalComment on above:Performed By: #### CVDTBH #### [facility] [address] [place] [address] Dr. Grace AbdulURINE MICROSCOPIC ONLYon 08-54-7000VUPSLVGRDMAN SEENNormalNONE SEENAvita Health System Bucyrus HospitalComment on above:Performed By: #### CBC #### [facility] [address] [place] [address] Dr. Grace Bella identified Cx Nom (U)NOT INDICATEDNoalThBrecksville VA / Crille HospitalComment on above:Performed By: #### CBC #### [facility] [address] [place] [address] Dr. Grace Alexandra SEENNormalNONE SEENAvita Health System Bucyrus HospitalComhenry [facility] on above:Performed By: #### CBC #### [facility] [address] [place] [address] Dr. Grace Sood LM Nom (Urine sed)NONE SEENNormalNONE SEENThe [facility] Medical CenterComment on above:Performed By: #### CBC #### [facility] [address] [place] [address] Dr. Grace Goddardthelial cells LM Ql (Urine sed)FEWAbnormalNONE SEEN /RAREThe [facility] CenterComment on above:Performed By: #### CBC #### [facility] [address] [place] [address] Dr. Grace Snyder SEENNormalNONE SEENAvita Health System Bucyrus HospitalComhenry [facility]d [facility] hospital on above:Performed By: #### CBC #### [facility] [address] [place] [address] Dr. Grace MontoyaTujiuZAJ7-3Amazlu0-0Anu [facility] CenterComhenry ford [facility] hospital on above:Performed By: #### CBC #### [facility] [address] [place] [address] Dr. Grace AbdulWBC0-2AbnormalNONE SEENAvita Health System Bucyrus HospitalComment on above: Performed By: #### CBC #### [facility] [address] [place] [address] Dr. Grace AbdulXR CHEST 1 Von 40-14-4946EA CHEST 1 VEXAMINATION: XR CHEST 1 V [...] Electronically authenticated by: KRANTHI CONNORS Date: 2021-09-13 13:19[facility] CenterCERV SP W/OBLS/FLEX/EXT 6 OR >on 23-31-1633EHWZ SP W/OBLS/FLEX/EXT 6 OR >STUDY: CERV SP W/OBLS/FLEX/EXT 6 OR >; 12/12/2020 9:40 am INDICATION: NECK PAIN. COMPARISON: None. ACCESSION NUMBER(S): [id number] ORDERING CLINICIAN: Aiden Younger TECHNIQUE: AP, lateral, [...] acute findings. Dense left carotid artery calcifications.NormalSt. [facility]c Special[facility] Vital Signs Date TimeVital SignValuePerforming YqiszlnmnGwrvlzlh99-52-7304 11:32-0400Body etinnx314.3 cmArmando Thayer DO Work Phone: EventWithMD Dnhyexrcfi84-05-2664 11:32-0400Body mass index (BMI) [Ratio]34.28 kg/m3Rrxpzqemario Thayer DO Work Phone: noMD Gealrlrxng74-21-9382 11:32-0400Body .39 kgArmando Thayer DO Work Phone: noChildren's Mercy NorthlandXpjswwywsc29-04-9737 11:32-0400Diastolic blood cvihoyzk77 mm[Hg]Armando Pattersoner DO Work Phone: [facility] HealthcareGtseflqpjq55-57-2051 11:32-0400Systolic blood qsgzpkaw116 mm[Hg]Armando Thayer DO Work Phone: [facility] HealthcareJdfsvlzwvd32-47-0838 12:51-0400Diastolic blood kjkhynbi96 mm[Hg]Carolyn Vanegas MD Work Phone: [facility]08-01-2023 12:51-0400Heart rate67 /min Carolyn Vanegas MD Work Phone: [facility]08-01-2023 12:51-0400Systolic blood gzsagtuk157 mm[Hg]Carolyn Vanegas MD Work Phone: [facility]03-24-2023 14:24-0400Diastolic blood momajnnh75 mm[Hg]Marty Dozier DO Work Phone: [facility]03-24-2023 14:24-0400Heart rate72 /min Marty Dozier DO Work Phone: [facility]03-24-2023 14:24-0400Systolic blood ptdzygrx737 mm[Hg]Marty Dozier DO Work Phone: [facility]03-24-2023 14:22-0400Body imaleg670.4 cmPhisofia Dozier DO Work Phone: [facility]03-24-2023 14:22-0400Body .39 kgPhisofia Dozier DO Work Phone: [facility]03-24-2023 14:22-9509VkO1% (BldA) [Mass fraction]99 %Marty Dozier DO Work Phone: [facility] Encounters Encounter DateEncounter TypeCare ProviderFacilityStart: 20-90-9022nxqntexfwk Jacinta TannaFacility:EU [place]vueStart: 11-14-2024 End: 52-97-1768qqaajvzpssRlmamu TannaFacility:EU [place]vueStart: 11-14-2024 End: 82-88-9526Lqscnoy encounter procedureLauren Mercedes [facility] start: 10-10-2024 End: 69-76-0663jsnkwlfhtdPujyf M. BillieKimacility:FTMCStart: 10-10-2024 End: 71-75-4681ctgnqvefcrUnwcb MLisette LueFacility:EU [place]vueStart: 10-10-2024 End: 61-56-4957Auuuwzt encounter Kira Calix [facility] start: 10-01-2024 End: 97-79-4406xusqwehpdvBnfxekx Vytautas Giedraitis MDFacility:PM [place] Start: 52-62-8994bctsrpdzumKonfzj TannaFacility:EU [place]kyStart: 09-22-2024 End: 40-26-9345Rtvwxsk encounter procedureGalina Bach MD-Lab [facility] Work Phone: Start: 09-22-2024 End: 33-59-3198whfbktbkpvMzcglcv M [facility] Work Phone: Start: 06-18-2024 End: 63-78-6526dxlsmmsopoRlugfgi Vytautas Giedraitis MDFacility:[facility] [place] Start: 05-28-2024 End: 40-66-7686wbxbplagvaXrejdct Vytautas Giedraitis MDFacility:[facility] [place] Start: 04-30-2024 End: 17-50-7897ofusgxwgidUoaqetp Vytautas Giedraitis MDFacility:[facility] [place] Start: 02-06-2024 End: 41-05-1944hbeisvlcieGbnfcom Vytautas Giedraitis MDFacility:[facility] [place] Start: 01-16-2024 End: 74-86-6358qmcqpvyxqdQcwlxoi Vytautas Giedraitis MDFacility:[facility] [place] Start: 12-06-2023 End: 18-85-0078Kchjyea encounter procedureArmando Thayer DO Work Phone: [facility] OBComment on above:Encounter for gynecological examination without abnormal finding; Encounter for Papanicolaou smear of vagina; Breast cancer screening by mammogramStart: 12-06-2023 End: 61-53-2794Xhlnzff encounter statusArmando Thayer DO Work Phone: [facility] HealthcareStart: 12-06-2023 End: 64-79-9064gtdjrlmyigFLKZBKS D BRUNERNot AvailableStart: 08-08-2023 End: 45-89-6726rluzzklvysDICOLETTE BRIGHT AvailableStart: 09-21-2022 End: 39-52-3143qxkttveoryDBYCFZE M HOYFacility:[facility] Hospitaltart: 09-21-2022 End: 13-13-7891Qhuugum encounter procedureCarolyn Vanegas MD Work Phone: NeurosurgeryComment on above:Obesity, Class I, BMI 30- 34.9 (Primary Dx); Spinal stenosis, lumbar region with neurogenic claudicationStart: 08-19-2022 Chart abstractingNone (Historical)NeurologyStart: 39-95-7614qynhobukjn NARENDRANATH LAKSHMIPATHY .Facility:V1Idiqn: 07-16-2022 End: 80-41-0845nyixynftrxHP GALINA PALMER .Facility:M9Lgnzm: 06-22-2022 End: 20-38-2837fwduumlbqsQOVOKMJMRFOP LAKSHMIPATHY .Facility:M8Frghq: 06-15-2022 End: 65-08-9073dfkrmjgmxmOXPOZYOZIENM LAKSHMIPATHY .Facility:L5Ygnbd: 06-10-2022 ambulatoryDR GALINA PALMER .Facility:R5Ahbqj: 06-01-2022 End: 47-17-3726zwgkdpguqlTDRQEMOSKTMB LAKSHMIPATHY .Facility:P6Kitcy: 05-14-2022 End: 09-57-8169ubjwtdcnleLHVQXUR G MENDISFacility:[facility] Start: 05-14-2022 End: 45-75-6288Bdhkhhy encounter procedurePhisofia Dozier DO Work Phone: Spdmf MedicineComment on above: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); Back pain, lumbosacral; Chronic sacroiliac joint pain; Lumbar spondylosis; Scoliosis of lumbar spine, unspecified scoliosis typeStart: 05-13-2022 End: 02-65-2888qeeukdrrwzQOYTZLVYMUCY LAKSHMIPATHY .Facility:M0Oowkc: 04-13-2022 End: 80-49-1071zeaqmcuvxzUE NIKO S BECKWITH .Facility:M3Keqgf: 04-06-2022 End: 71-99-4081qbmuvxdgzjXR NIKO S BECKWITH .Facility:P9Zgalc: 04-05-2022 End: 74-02-7594unsssqqxatCU GALINA HOY .Facility:E6Japhe: 04-04-2022 End: 87-46-7786nfinlqhsmgUR MATTHEW MEYER .Facility:B8Wtavh: 03-11-2022 End: 85-99-1160amaxcdlgsuFB GALINA HOY .Facility:B6Epqsr: 02-09-2022 End: 14-38-7853ureboorvbaNJ GALINA HOY .Facility:D5Xwdel: 01-28-2022 End: 12-86-0926zyprgmidsaWMFJ SEQUEIRA .Facility:S2Utakw: 01-12-2022 End: 25-09-8273ejmwwedaqfRO NIKO S BECKWITH .Facility:J0Inexj: 12-31-2021 End: 88-67-0120hkpcgodnmnIOHJ SEQUEIRA .Facility:L9Xsiib: 32-93-1700tvxxavipxmTE GALINA HOY .Facility:V3Wroyq: 12-11-2021 End: 83-76-9961htrjusnwbxAJ GALINA HOY .Facility:Y6Mtpmq: 11-25-2021 End: 79-19-4064fczummayoaYR GALINA HOY .Facility:G7Dkeek: 11-24-2021 End: 53-80-7431hnznrdhkbcZE GALINA HOY .Facility:O6Huszx: 11-23-2021 End: 95-07-8180duuiypurnyJV GALINA HOY .Facility:Q0Vbxph: 11-15-2021 End: 84-87-3097Znoaeehaur and management of inpatientSBREANNA BERNALWADFacility:H1 Start: 11-11-2021 End: 35-27-5467rpvgnbsfrjBKIRWU RODRIGUEZ .Facility:Z4Hovqp: 09-30-2021 End: 88-08-3132uqeogimppkFV NIKO BECKWITH .Facility:K1Yzixv: 09-13-2021 End: 24-22-0822kokgtwhlpgTBLZWY RODRIGUEZ .Facility:V8Briyh: 09-12-2017 End: 68-96-3490Dbpbess encounterDEFAULT PHYSICIANFacility:[facility] Procedures DateProcedureProcedure DetailPerforming [...] Plan of Treatment DateCare ActivityDetailAuthorStart: 12-10-2025 End: 85-38-0650Stdxsel encounter wbegcvttq30/20/2026 11:30 AM EDT Office Visit [facility] [address] [place] [id number] Armando Thayer, DO [address] [place] [address] [facility] SWS OBStart: 61-10-1332Qxihfwrg identified in Urine by CultureUrine CultureMorrow County Hospitaltart: 40-66-4600Tjbbk cultureMorrow County Hospitaltart: 96-91-0728Corjmfnrx vaccination Influenza Vaccine (#1)[facility] HealthcareStart: 96-60-8560Avdjztajh vaccination INFLUENZA (#1)[facility]: 11-96-1907YDQZM-19 VACCINE (6 - Moderna series)COVID-19 VACCINE (6 - Moderna series)[facility]: 02-21-2022 ADVANCE DIRECTIVE DISCUSSIONADVANCE DIRECTIVE DISCUSSIONFort Hamilton Hospitaltart: 39-16-0082EBRHQENFCI ASSESSMENTDEPRESSION ASSESSMENTFort Hamilton Hospitaltart: 55-98-5233Gpepffpchrmh Vaccine: 65+ Years (2 of 2 - PPSV23 or PCV20)Pneumococcal Vaccine: 65+ Years (2 of 2 - PPSV23 or PCV20)[facility]Start: 11-12-2017 PNEUMOCOCCAL: 65+ (2 - PPSV23 if available, else PCV20)PNEUMOCOCCAL: 65+ (2 - PPSV23 if available, else PCV20)[facility] Hospital[facility]: 53-24-8649VVWBOPILFFAD: 65+ (2 - PPSV23 or PCV20)PNEUMOCOCCAL: 65+ (2 - PPSV23 or PCV20)[facility] Start: 81-24-7028VTGIWLMM VACCINE (2 of 3)SHINGRIX VACCINE (2 of 3)[facility] Hospital[facility]art: 86-13-8970TCQU DENSITYBONE DENSITYFort Hamilton Hospitaltart: 04[birth year]30-1984 DIABETES SCREENDIABETES SCREENFort Hamilton Hospitaltart: 55-27-1826Cjzxf microalbumin profileDTAP,TDAP,TD (1 - Tdap)[facility] HospitalIGP,rfxAptima HPV all,16/18,45IGP,rfxAptima HPV all,16/18,45 Pathology and Cytology Routine Encounter for Papanicolaou smear of vagina Ordered: 12/06/2023[facility] Work Phone: comment on above:Ordered: 12/06/2023 Immunizations Immunization DateImmunizationNotesCare VbjdhpvfFkqqxroo93-93-3937qpeajt vaccine recombinantLasera Cooleya [facility]06-02-2025tetanus toxoid, reduced diphtheria toxoid, and acellular pertussis vaccine, adsorbedLauren Mercedes [facility]10-14-2024influenza virus vaccine, unspecified formulationLauren Mercedes [facility]09-04-2023influenza virus vaccine, unspecified formulationLauren Mercedes [facility]08-12-2023SARS-CoV-2 (COVID-19) mRNAMUL.ORD![id number] Tanna [facility] CenterComhenry [facility] on above:Result Comment: 2024-11-14: [id number] Bivalent Booster VaccinationWilliamyrna Thayer DO Work Phone: [facility] HealthcareCom[facility] on above:Result Comment: 2024-11-14: [id number], injectable, Madin Carmina Canine Kidney, preservative free, quadrivalentPhillip Mendis DO Work Phone: [facility] HospitalYhpqgx11-81-5450gikpwwpsv virus vaccine, unspecified formulationWilliam Flaca DO Work Phone: [facility]04-14-2022SARS-CoV-2 (COVID-19) mRNA-5622 vaccineLauren Mercedes [facility] on above:Result Comment: 2024-11-14: [id number]-ImG-6 (COVID-19) mRNA-1273 vaccineLauren Mercedes [facility]10-08-2021influenza virus vaccine, unspecified formulationPhillip Mendis DO Work Phone: [facility] HospitalGsvhfu35-94-2105apewrghlk, unspecified formulationLasera Cooleya [facility]02-15-2021SARS-CoV-2 (COVID-19) mRNA-1273 vaccineLasera Cooleya [facility]01-18-2021SARS-CoV-2 (COVID-19) mRNA-1278 vaccineLasera Cooleya [facility]10-08-2020influenza virus vaccine, unspecified formulationLasera Long [facility]10-08-2020Seasonal trivalent influenza vaccine, adjuvanted, preservative freePhillip [facility] Centeris DO Work Phone: [facility] HospitalWbbicn00-62-0595pyfudz vaccine, livePhillip [facility] Centeris DO Work Phone: [facility] HospitalWptlbh18-31-5226upklwzyjejqm conjugate vaccine, 13 valentPhillip [facility] Centeris DO Work Phone: [facility] Payers DatePayer CategoryPayerPolicy [id number] Health [id number] 2005Medicare [id number] 2005Unknown1960Medicare [id number] [id number] 2.16.840.1.709747.3.579.2.0[id number] 2.16.840.1.157162.3.579.2.92848-49-1571Ieapdpz8049572 2.16.840.1.345450.3.57[id number] 2.16.840.1.382068.3.579.2.52782-64-5268Ijyapvg9015150 2.16.840.1.765118.3.579.2.69872-92-8094Ivabbmf2749078 2.16.840.1.286770.3.579.2.41126-97-5955Zrhxnme7463939 2.16.840.1.832933.3.579.2.99354-49-6486Whqqtlj1706710 2.16.840.1.837743.3.579.2.73835-60-6265Olhgqot3665907 2.16.840.1.889065.3.579.2.30306-43-7231Yxkbtyz2304565 2.16.840.1.597461.3.579.2.25062-87-1408Lfgxcmb3599869 2.16.840.1.037997.3.579.2.06973-10-6662Teiaiss6842301 2.16.840.1.322806.3.579.2.52503-77-1957Fduuetj4899274 2.16.840.1.500367.3.579.2.61115-73-5479Sjchayp1820932 2.16.840.1.786981.3.579.2.12137-47-5946Rexiojq0184792 2.16.840.1.700808.3.579.2.83120-41-6138Bjxdopt5467842 2.16.840.1.700115.3.579.2.98255-66-6834Khuzmga7002598 2.16.840.1.083903.3.579.2.74716-95-2482Mayktni2822255 2.16.840.1.136038.3.579.2.12208-38-0452Cbchkjc3784294 2.16840.1.802330.3.579.2.93615-83-0999Dkvxjnl1944458 2.16840.1.476486.3.579.2.64592-47-8124Xrbdyqf8609859 2.16840.1.344302.3.579.2.46129-11-6603Wgnrwlc1025529 2.16840.1.496218.3.579.2.67179-16-2399Whlwyms5391158 2.16.840.1.297849.3.579.2.94909-33-0001Gecffqw1779638 2.16840.1.553822.3.579.2.60353-96-7058Wolrrcu3488934 2.840.1.449869.3.579.2.16540-84-7634Qdxhpqd5084032 2.16.840.1.182577.3.579.2.558415-20-0555Dqtgsug7286738 2.16.840.1.566630.3.579.2.221493-49-4401Oyungjb9223221 2.16.840.1.785126.3.579.2.642173-10-0819Nvdamox990301791 2.16.840.1.457166.3.579.2.28570-80-7479Ukjyvty396864892 2.16.840.1.145303.3.579.2.09417-90-7255Nuqdzei912199254 2.16.840.1.950334.3.57[id number] 2.16.840.1.142156.3.579.2.52136-47-0175Taosxgp596033934 2.16.840.1.500521.3.579.2.84884-10-2147Ererpov723760682 2.16.840.1.326243.3.579.2.11981-02-3594Dgxyrdm23253342 2.16.840.1.613425.3.579.2.70777-89-4121Blhlhju17720245 2.16.840.1.059716.3.579.2.50102-49-8884Fdztvgr30626069 2.16.840.1.750581.3.579.2.82590-38-6841Jzilvlg52254042 2.16.840.1.697750.3.579.2.02852-58-5350Zmsdehq98639490 2..840.1.802471.3.579.2.02958-41-5791Dcxmvzf92152755 2.16.840.1.497462.3.579.2.415Qabryxa53231416 2.840.1.355411.3.579.2.531 Social History DateTypeDetailFacilityStart: 05-14-2022 End: 04-02-3708Usnfhug smoking status NHISNever smoked tobaccoWilson Memorial Hospital Start: 05-14-2022 End: 89-63-9628Vgtefcj use and exposureSmokeless tobacco non-userFort Hamilton Hospitaltart: 05-14-2022 End: 56-97-5151Eixaesn intakeLifetime non-drinker (finding)[facility] Start: 02-92-9406Ctq Assigned At BirthNot on fileFort Hamilton Hospitaltart: 09-21-2022 End: 92-24-9136Pxrrurr of Social functionFort Hamilton Hospitaltart: 09-21-2022 End: 73-72-7913Hmjcofc use panelWilson Memorial HospitalAdult Depression Screening Gcjqvlezsf0Lnflnjxah ClinicHow often to you have a drink containing alcohol? NeverNOMS HealthcareTobacco smoking status NHISUnknown if ever smokedSelect Medical Specialty Hospital [facility] Work Phone: Start: 72-62-1281MqzJivswa (finding)[facility] Hospitaltart: 00-82-8918Ufs Assigned At [facility] Centerexual OrientationExec[facility] Clinical Notes 09-30-2021 to 11-14-2024 Note Date & EmgbWhvrAhplniqa66-46-7757 Hospital Discharge instructions Patient Education 11/14/2024 16:17:11 [...] your health care provider. General instructions Take ighp-nlq-dficicx and prescription medicines only as told by [...] provider. Document Revised: 10/27/2020 Document Reviewed: 10/27/2020 [employer] Patient Education 2023 [employer]. Follow Up Care 10/10/2024 10:34:03 With:Jacinta Long PA-C, GREGG Address: When:Within 3 Month(s) Comments:w/ BLANAC [facility] 09-24-2025 NotePatient Education Obstetrics and Gynecology Overactive [...] health care provider. General instructions ??? Take ufuq-yje-zmjhohx and prescription medicines only as told by [...] you drink, and whe (more content not included)...[facility]08-20-2025 Hospital Discharge instructions Patient Education 10/10/2024 [...] your health care provider. General instructions Take desc-sqj-kmstltg and prescription medicines only as told by [...] provider. Document Revised: 10/27/2020 Document Reviewed: 10/27/2020 [employer] Patient Education 2023 [employer]. 10/10/2024 10:31:41 Kegel Exercises Kegel Exercises Kegel [...] provider. Document Revised: 06/18/2021 Document Reviewed: 06/18/2021 [employer] Patient Education 2023 [employer]. 10/10/2024 10:31:39 Hematuria, Adult Hematuria, Adult Hematuria [...] Follow these instructions at home: Medicines Take qopn-sld-pxqnnfg and prescription medicines only as told by [...] or the blood stops without treatment. Take bqcl-got-zxfnmsg and prescription medicines only as told by your health care provider. Drink enough fluid to keep your urine pale yellow. This information is not intended to replace advice given to you by your health care provider. Make sure you discuss any questions you have with your health care provider. Document Revised: 10/08/2020 Document Reviewed: 10/08/2020 [employer] Patient Education 2023 [employer]. Follow Up Care 10/04/2024 10:42:48 With:Yogi MEANS, Sharon Patel, URL, URO Address: [address], [place] [phone] When: Unknown Comments:1-2 mos w/ PVR (new med) [facility] 08-20-2025 NoteUrology Office/Clinic Note Chief Complaint referral utis, retention HPI Staff Referral from Dr. Palmer for urinary retention. Urine culture @ [facility] 09/21/24 - negative for growth GEORGINA @ [facility] 09/24/24 DR Palmer did some tests [...] retention, and exacerb (more content not included)... [facility] HospitalComment on above:Result Comment: Electronically Signed By: Sharon Calix MD\.br\Date and Time Signed: 10/10/24 11:06 EDT\.br\Electronically Co-Signed By: Holly Canales\.br\Date and Time Co-Signed: 10/10/24 10:32 [id number] NotePatient Education Obstetrics and Gynecology Overactive Bladder, [...] health care provider. General instructions ??? Take pqkx-xno-kgoiwjp and prescription medicines only as told by [...] you drink, and whe (more content not included)...[facility]10-15-2024 History of Present illness Narrative* Marlena Person MA - 12/06/2023 11:30 AM EDT Images from the original note were not included. Armando Thayer, DO Obstetrics and Gynecology Alexa Delgado 1940 12/06/23 [id number] Yearly Wellness Exam Chief Complaint Patient presents with Gynecologic Exam Medicare yearly. LMP: SUNIL BSO 1972 HRT: None Last pap 12-02-21 neg. Last mammogram 12-05-23 [facility] ordered by PCP. Denies breast [...] Oil) 1000 MG capsule as directed Orally Qagttrmxahk-Nmevgxasmxj-LIZ (Triple Flex) 500-400-125 MG tablet 1 tablet with meals Orally twice daily for 30 days HYDROcodone-acetaminophen (Washington) 5-325 MG tablet 1 tablet as needed [...] Past Medical History: Diagnosis Date Angina pectoris ([facility]) Angina pectoris ([facility]) 11/2019 hx of hospitalization Melchor's palsy 1960 Breast nodule Cataract 2012 COVID-19 10/2021 hx of hospitalization History of medical problems 1982 MMK LSO HTN (hypertension) ([facility]) Hx of completed stroke hx of stroke at bcpsoxtwzg6601/ TIA 1984 Kidney disease remission Kidney disease hx of hospitalization Lumbar disc herniation 2007 L4 L5 Miscarriage x3 Pelvic fracture ([facility]) 2018 hx of hospitalization x4 Status post laser cataract surgery of left eye 2014 Stroke ([facility]) 1973 at childbirth TIA (transient ischemic attack) [...] costovertebral angle tenderness, no obvious scoliosis/kyphosis. 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 documented in this encounterMissouri Southern HealthcareYnylkbutfz53-91-4164 NoteHNO ID: [id number] Author: Carolyn Vanegas MD Service: ? Author [...] Physical Health Percentile 1 (more content not included)...[facility]08-01-2023 Instructions* Patient Instructions* Carolyn Vanegas MD - [...] surgery at this time. documented in this encounterWilson Memorial Hospital08-01-2023 History of Present illness Narrative* Carolyn [...] Level: 4 - Moderate documented in this encounterWilson Memorial Hospital07-06-2023 NoteHNO ID: [id number] Author: Kassandra Alves PA-C Service: ? Author Type: Physician Marksmanship Instructor Type: Progress Notes Filed: 08/26/2022 11:52 AM Note Text: Per Triage: Alexa Delgado is a 82 year old female that requests evaluation of spine. Per review, they have symptoms of lower back pain. Numbness/tingling right leg. Difficulty walking. Weakness Request: 1st available Referring provider: Galina Palmer MD Patient out of state: no 2nd opinion: no Prior spine surgery: yes 2006 [facility] Address: [address] [place] [address] CMT: PT Injections Tylenol Hydrocodone Studies (Reports [...] can be reviewed during the appt [facility]IL[facility] GarciaAshtabula [facility]07-[facility] History of Present illness Narrative* Kassandra Alves [...] no Prior spine surgery: yes 2006 [facility] Address: [address] [place], [place] [id number] CMT: PT Injections Tylenol Hydrocodone Studies (Reports [...] facility where the MRI/CT/myelogram was completed: [facility] Address: [address] [place] [address] MRI/CT/myelogram viewable in Epic: No If not, please provide [phone] to fax in imaging reports for review. [...] and/or physical therapy was completed PT Injection [facility] Address: [address] [place] [address] Have you tried any other kinds of [...] of where the surgery was completed: 2006 [facility] Address: [address] [place] [address] Additional Comments documented in this encounterWilson Memorial Hospital06-29-2023 NoteHNO ID: [id number] Author: Micheal Bowman Service: ? Author Type: [...] facility where the MRI/CT/myelogram was completed: [facility] Address: [address] [place] [address] MRI/CT/myelogram viewable in Epic: No If not, please provide [phone] to fax in imaging reports for review. [...] physical therapy was completed PT Injection [facility] Address: [address] [place] [address] Have you tried any other kinds of [...] where the surgery was completed: 2006 [facility] Address: [address] [place] [address] Additional Comments [place] [address]-26-2023 NotePROCEDURE: XR HIP RT 2 3V W [...] Electronically authenticated by: HERMES SUAREZ Date: 2022-07-16 11:28[facility]03-24-2023 NoteHNO ID: [id number] Author: Marty Dozier, DO Service: ? Author Type: Physician Type: Progress Notes Filed: 05/15/2022 10:02 PM Note Text: [facility] [place] [facility] [place] [facility] - Medical Spine Initial [...] Ratio: R>L low back Current Treatment: Medications Washington 5-325 mg BID - helps Diclofenac 75 [...] but still has pain -01/28/22 Noemi Sequeira EX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 [...] today. She has an evaluation at [facility] at [facility]. RECOMMENDATIONS: We will see the patient back in the office after she undergoes evaluation there to discuss her treatment plan thereafter. We will see the patient back in the office in approximately four weeks' time or sooner if needed. PMH: Lumbar scoliosis Depression on Negrita (more content not included)...[facility] 05-14-2022 History of Present illness Narrative* Marty Dozier, - 05/14/2022 3:15 PM EDT Images from the original note were not included. [facility] [place] [facility] - Medical [...] Ratio: R>L low back Current Treatment: Medications Washington 5-325 mg BID - helps Diclofenac 75 [...] but still has pain -01/28/22 Noemi Sequeira EX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 [...] today. She has an evaluation at the [facility] tomorrow at the Spine Center. [...] 04/04/22 CT abd/pelvis with IV contrast, [facility], report: Abdominal wall: Old healed left pelvis fractures. Degenerative changes and scoliosis of the lumbar spine. IMPRESSION: No acute abdominal pathology. No acute inflammatory process. No obstructing urinary tract stone. No evidence for bowel obstruction. 11/15/21 XR abd, [facility], report: No acute osseous abnormality. There is moderate dextrocurvature of the lumbar spine. 05/08/2021 XR right hip/pelvis, [facility], report: Rotatory dextro scoliosis of [...] 2022 TIME: 3:15 PM documented in this encounterWilson Memorial Hospital03-23-2023 NoteCONSULTATION CONSULTATION DATE: 05/13/2022 TO: Dr. [...] mg at h.s., diclofenac 75 mg b.i.d., Washington 5 mg b.i.d. EXAM: Notable for the [...] today. She has an evaluation at the [facility] tomorrow at the Spine Center. RECOMMENDATIONS: We will see the patient back in the office after she undergoes evaluation there to discuss her treatment plan thereafter. We will see the patient back in the office in approximately four weeks' time or sooner if needed.[facility] [id number] NoteCONSULTATION CONSULTATION DATE: 04/06/2022 CHIEF COMPLAINT: Low [...] to kidney dysfunction also. The patient takes Washington, however, is very controlled and limits it to the point of detriment. Education was done. The patient was instructed to take the Washington to a b.i.d. to t.i.d. basis. The [...] b.i.d. basis. The patient may increase the Washington to 5/325 t.i.d. We will schedule the [...] to the procedure. CC: Galina Palmer M.D.[facility] [id number] NoteCONSULTATION CONSULTATION DATE: 03/11/2022 HISTORY OF PRESENT [...] gave improvement for 24 hours. Medications include Washington 5/325 b.i.d., diclofenac 75 mg b.i.d., citalopram [...] back pain. PLAN: We will refill her Washington 5/325 b.i.d. We will prescribe her Buderer cream with gabapentin, ketorolac and prilocaine/lidocaine to be placed over her right knee. We will trial Requip 0.25 mg q.h.s. We will see the patient in the clinic in three months' time unless otherwise indicated. Patient agrees with the plan.[facility] [id number] NoteCONSULTATION CONSULTATION DATE: 01/28/2022 HISTORY OF PRESENT [...] daily which decreases her pain. Medications include Washington 5/325 b.i.d., Flexeril 5 mg b.i.d., diclofenac [...] does consent to. We will refill the Washington 5/325 b.i.d. We will pre-authorize for a right genicular nerve block under fluoroscopy. Patient will follow up in the clinic thereafter.[facility] [id number] NoteCONSULTATION PROCEDURE DATE: 01/28/2022 PREOPERATIVE DIAGNOSIS: Bilateral [...] will be followed up in the office.[facility] [id number] Note CONSULTATION CONSULTATION DATE: 12/31/2021 HISTORY OF [...] Current medications include diclofenac 75 mg b.i.d., Washington 5/325 b.i.d., citalopram, Flexeril and multivitamin regimen. The patient does state that she breaks her Washington in half and the most she takes [...] care and would like to move forward.[facility] [id number] NoteCONSULTATION CONSULTATION DATE: 09/30/2021 This is a very gbxjilnt40-qylb-eka female accompanied by her returning to the [...] Current medications include diclofenac 50 mg b.i.d., Washington 5/325 b. i.d. and Tylenol. She does [...] at 25 mg q.h.s. Refill for her Washington 5/325 b.i.d. will be sent as well. The patient is to continue with her vitamin regimen which she is currently compliant with, as well as heat application and pool exercises. The patient will be followed up in the office in three months' time unless otherwise indicated. The patient agrees with the plan of care.[facility] Evaluation + Plan note Future Appointments Appointment Date:11/14/2024 03:00:00 PM Scheduled Provider:Jacinta Long PA-C Location:[facility] Appointment Type:URO Office Visit [facility] evaluation + Plan note Future Appointments Appointment Date:02/26/2025 03:10:00 PM Scheduled Provider:Jacinta Long PA-C Location:[facility] Appointment Type:URO Office Visit [facility] evaluation note* Diagnosis Chronic bilateral low back pain with right-sided sciatica- Primary Back pain, lumbosacral Lumbago Chronic sacroiliac joint pain Disorders of sacrum Lumbar spondylosis Lumbosacral spondylosis without myelopathy Scoliosis of lumbar spine, unspecified scoliosis type documented [facility] Diagnosis Spinal stenosis, lumbar region with neurogenic claudication- Primary Spondylolisthesis, lumbar region Other idiopathic scoliosis, lumbar region documented in this encounter [facility]* Diagnosis Obesity, Class I, BMI 30-34.9- Primary Obesity, unspecified Spinal stenosis, lumbar region with neurogenic claudication documented in this encounter [facility]* Diagnosis Encounter for gynecological examination without abnormal finding Encounter for Papanicolaou smear of vagina Breast cancer screening by mammogram documented in this encounter [facility] HealthcareEvalumiddletown emergency department noteNo assessment information availableSelect Medical Specialty Hospital [facility] Work Phone: Hospital course Narrative No data available for this section [facility] progress note No data available for this section [facility] reason for referral (narrative)No reason for referral information availableSelect Medical Specialty Hospital [facility] Work Phone: Summary Purpose Family History No [...] [facility]) OFFICE/OUTPATIENT [facility] 60-74 MINUTES Carolyn Vanegas MD [address] [place] [address] Referral IDStatusReasonStart DateExpiration DateVisits RequestedVisits [id number] Review PCP Requested Referral / Additional Source Comments INFORMATION SOURCE (unrecogn ized section and content) DATE CREATED AUTHOR 09/13/2017 [facility] DATE CREATED AUTHOR AUTHOR'S ORGANIZ ATION 12/13/2020 [facility] DATE CREATED AUTHOR AUTHOR'S ORGANIZ ATION 07/30/2022 [facility] DATE CREATED AUTHOR AUTHOR'S ORGANIZ ATION 09/22/2022 [facility] DATE CREATED AUTHOR AUTHOR'S ORGANIZ ATION 12/08/2023 [facility] DATE CREATED AUTHOR AUTHOR'S ORGANIZ ATION 10/10/2024 [facility] DATE CREATED AUTHOR AUTHOR'S ORGANIZ ATION 10/13/2024 [facility] DATE CREATED AUTHOR AUTHOR'S ORGANIZ ATION 11/16/2024 [facility] Source Comments (unrecognize d section and content) In the event this informatio n is protected by the Federal Confidentiality of Alcohol and Drug Abuse Patient Records regulations: The Federal rules restrict any use of the information to criminally investigate or prosecute any alcohol or drug abuse patient.[facility] Memorial HospitalIn the event this information is protected by the Federal Confidentiality of Alcohol and Drug Abuse Patient Records regulations: The Federal rules restrict any use of the information to criminally investigate or prosecute any alcohol or drug abuse patient.[facility] HospitalIn the event this information is protected by the Federal Confidentiality of Alcohol and Drug Abuse Patient Records regulations: The Federal rules restrict any use of the information to criminally investigate or prosecute any alcohol or drug abuse patient.[facility] Reason for Visit (unrecogniz ed section and content) ReasonCommentsNew Patient EvaluationLow Back PainReasonCommentsNew PatientReason CommentsGynecologic ExamMedicare yearly.LMP: SUNIL BSO 1973HRT: NoneLast pap 12-02-21 neg.Last mammogram 12-05-23 [facility] ordered by PCP.Denies breast or urinary concerns.bowel concernSome rectal bleeding with bowel movements. Denies difficulty having a bowel movement. Care Teams (unrecognized sec tion and content) Team MemberRelationshipSpecialtyStart [facility] Galina Palmer MD [address] [place] [address] PCP - [facility] Medicine05/14/22 Colette De Leon Jr., DO [address] [place] [address] ReferringOrthopedics05/03/22 Lakshmipathy, Narendranath [address] [phone] Pain Management05/14/22 Colette De Leon Jr., DO [address] [place] [address] Orthopedic05/14/22Team MemberRelationshipSpecialtyStart [facility] Galina Palmer MD [address] [place] [address] PCP - [facility] Medicine05/14/22 Colette De Leon Jr., DO [address] [facility] [address] [place] [address] ReferringOrthopedics05/03/22 Lakshmipathy, Narendranath [address] [phone] Pain Management05/14/22 Colette De Leon Jr., DO [address] [place] [address] Orthopedic05/14/22 Galina Palmer MD [address] [place] [address] ReferringFamily Medicine08/11/22Team MemberRelationshipSpecialtyStart End Galina Palmer MD [address] [place] [address] PCP - GeneralFamily Medicine05/14/22 Colette De Leon Jr., DO [address] [facility] [address] [place] [address] ReferringOrthopedics05/03/22 ShermiPorsha santillan [address] [address] Pain Management05/14/22 Colette De Leon Jr., DO [address] [facility] [address] [place] [address] Orthopedic05/14/22 Galina Palmer MD [address] [place] [address] ReferringFami Medicine08/11/22Team MemberRelationshipSpecialtyStart DateEnd Date Galina Palmer MD [address] [place] [address] PCP - GeneralFamily Medicine08/02/22 Team Status: Inactive [...] THE PRIMARY CLINICAL RECORDS. [facility]. provides no warranty or guarantee of the accuracy or completeness of information in this document.
--- OUTSIDE RECORDS SUMMARY | 2025-01-09 13:13 | XMS_ITS | Clinical Summary ---
Author Organization [facility] Address [address] [facility] [place] [address] Phone Care Team Providers Care Relish Maker Name Role Phone Unavailable Primary Care Provider Unavailabl e Social History Tobacco UseTypesPacks/DayYears UsedDateSmoking Tobacco: Never Assessed CommentsUnknownSex and Gender InformationValueDate RecordedSex Assigned at Not on fileLegal FtnRzrfsz04/25/2022 6:29 PM ESTGender IdentityNot on fileSexual OrientationNot on file Plan of Treatment Not on file
--- NOTE | 2025-01-09 13:47 | PM.CN ---
Consult Note: HPI Data of Consult Patient: known to practice within the last 3 years Consult date: 01/09/25 Requesting Physician: Vivian Meza NP Primary Care Provider: Luis Rogers MD Consult Narrative Reason for consult: f/u Narrative: Alexa Delgado a pleasant 84 year old female presents for evaluation and management of chronic low back and bilateral SIJ pain. Patient rating pain 3/10 today, pain increasing to 8/10 with standing, walking, lifting, reaching, walking, activity. pain improved with lying down, heat, and medications. Patient has found significant improvement in pain and functional ability with past procedures and current medication regimen. currently taking gabapentin 100mg BID, norco 5-325mg BID-TID PRN, flexeril 5mg bid, tylenol prn. cc:: CC: Vivian Meza NP PFSH PFSH Medical History Chest pain, rule out acute myocardial infarction ?R07.9 - Chest pain, unspecified (ICD-10) CAD (coronary artery disease) ?I25.10 - Atherosclerotic heart disease of elim ira coronary artery without angina pectoris (ICD-10) Hypothyroid ?E03.9 - Hypothyroidism, unspecified (ICD-10) Hypertension ?I10 - Essential (primary) hypertension (ICD-10) Pelvic fracture ?S32.9XXA - Fracture of unspecified parts of lumbosacral spine and pelvis, initial encounter for closed fracture (ICD-10) TIA (transient ischemic attack) ?G45.9 - Transient cerebral ischemic attack, unspecified (ICD-10) Closed fracture of coccyx ?S32.2XXA - Fracture of coccyx, initial encounter for closed fracture (ICD-10) Osteoarthritis ?M19.90 - Unspecified osteoarthritis, unspecified site (ICD-10) H/O pyelonephritis ?Z87.448 - Personal history of other diseases of urinary system (ICD-10) Syncope ?R55 - Syncope and collapse (ICD-10) Generalized weakness ?R53.1 - Weakness (ICD-10) Dizziness ?R42 - Dizziness and giddiness (ICD-10) Surgical History Pain management ?R52 - Pain, unspecified (ICD-10) H/O bladder repair surgery ?Z98.890 - Other specified postprocedural states (ICD-10) H/O breast surgery ?Z98.890 - Other specified postprocedural states (ICD-10) H/O knee surgery ?Z98.890 - Other specified postprocedural states (ICD-10) H/O foot surgery ?Z98.890 - Other specified postprocedural states (ICD-10) History of right knee joint replacement ?Z96.651 - Presence of right artificial knee joint (ICD-10) History of YAG laser capsulotomy of lens ?Z98.49 - Cataract extraction status, unspecified eye (ICD-10) Hx laparoscopic cholecystectomy ?Z90.49 - Acquired absence of other specified parts of digestive tract (ICD-10) H/O: hysterectomy ?Z90.710 - Acquired absence of both cervix and uterus (ICD-10) History of arthroscopic knee surgery ?Z98.890 - Other specified postprocedural states (ICD-10) H/O discectomy ?Z98.890 - Other specified postprocedural states (ICD-10) H/O dilation and curettage ?Z98.890 - Other specified postprocedural states (ICD-10) History of appendectomy ?Z90.49 - Acquired absence of other specified parts of digestive tract (ICD-10) Hx of tonsillectomy ?Z90.89 - Acquired absence of other organs (ICD-10) Family History Other Family history of CHF (congestive heart failure) Social History Within the past year, how often did you have a drink containing alcohol: never Score interpretation: A score less than 3 is consistent with normal alcohol consumption. Smoking status: Never smoker Non-prescribed substance use: denies use Previous occupational history: Retired, , lives at home Highest level of school completed/degree received: high school graduate Are you now , , , , never or living with a partner: In a typical week, how many times do you talk on the telephone with family, friends, or neighbors: once per week How often do you get together with friends or relatives: once per week How often do you attend orthodoxy or jewish services: 1-3 times per year Little interest or pleasure in doing things: not at all Feeling down, depressed, or hopeless: not at all Feel stressed/tense/nervous/anxious/difficulty sleeping: not at all Gender Identity: female Meds Home Medications and Allergies Home Medications ?Medication ?Instructions ?Recorded ?Confirmed ?Type capsaicin 0.025 % topical patch 1 patch topical DAILY pain 07/26/22 10/01/24 History (Salonpas-Hot) citalopram 10 mg tablet 10 mg PO DAILY 07/26/22 10/01/24 History fexofenadine 180 mg tablet 180 mg PO DAILY 07/26/22 10/01/24 History (Benita Allergy) flaxseed oil 1,000 mg capsule 1,000 mg PO DAILY 07/26/22 10/01/24 History glucosamine 750 jw-lsevmr-xxj 2-C 1 tab PO DAILY 07/26/22 10/01/24 History 30 mg-D3 1,000 unit-maida 1 mg tablet (Dffrlyytvwp-Zkppqffydij-WAR + vitD) isosorbide mononitrate 30 mg 30 mg PO DAILY 07/26/22 10/01/24 History tablet,extended release 24 hr liothyronine 25 mcg tablet 25 mcg PO DAILY 07/26/22 10/01/24 History (Cytomel) melatonin 3 mg capsule 3 mg PO DAILY 07/26/22 10/01/24 History metoprolol succinate 50 mg 50 mg PO BID 07/26/22 10/01/24 History tablet,extended release 24 hr multivitamin 1 tab PO DAILY 07/26/22 10/01/24 History nitroglycerin 0.4 mg sublingual 0.4 mg sublingual Q5M PRN chest 07/26/22 10/01/24 History tablet pain cyclobenzaprine 10 mg tablet 10 mg PO BEDTIME 04/20/23 10/01/24 History ferrous sulfate 325 mg (65 mg 325 mg PO BID 09/02/23 10/01/24 History iron) tablet diclofenac sodium 75 mg 75 mg PO BID 10/13/23 10/01/24 History tablet,delayed release levothyroxine 75 mcg tablet 75 mcg PO QAM 10/13/23 10/01/24 History pantoprazole 40 mg tablet,delayed 40 mg PO DAILY #30 tabs 10/13/23 10/01/24 Rx release (Protonix) calcium 600 mg (as carbonate)-vit 1 tab PO BID 11/04/23 07/23/24 History D3 20 mcg (800 unit) chewable tablet (Caltrate plus D) hydrocodone 5 mg-acetaminophen 325 1 tab PO TID PRN pain #90 tabs 01/05/24 10/01/24 Rx mg tablet gabapentin 100 mg capsule 100 mg PO BID #60 caps 09/19/24 10/01/24 Rx gabapentin 100 mg capsule 100 mg PO BID #60 caps 10/11/24 Rx hydrocodone 5 mg-acetaminophen 325 1 tab PO TID PRN pain #90 tabs 10/11/24 Rx mg tablet gabapentin 100 mg capsule 100 mg PO BID #60 caps 11/21/24 Rx hydrocodone 5 mg-acetaminophen 325 1 tab PO TID PRN pain #90 tabs 11/27/24 Rx mg tablet gabapentin 100 mg capsule 100 mg PO BID #60 caps 01/09/25 Rx hydrocodone 5 mg-acetaminophen 325 1 tab PO TID PRN pain #90 tabs 01/09/25 Rx mg tablet Allergies Allergy/AdvReac Type Severity Reaction Status Date / Time Penicillins Allergy Severe Hives Verified 10/01/24 11:21 codeine AdvReac Intermediate Dizziness Verified 10/01/24 11:21 fluconazole (From Diflucan) AdvReac Intermediate Hives Verified 10/01/24 11:21 quinine (From Quinamm) AdvReac Mild Headache Verified 10/01/24 11:21 pregabalin (From Lyrica) AdvReac Dizziness Verified 10/01/24 11:21 propoxyphene (From Darvon) AdvReac Headache Verified 10/01/24 11:21 decongest multi-action AdvReac Mild Headache Uncoded 10/01/24 11:21 Exam Constitutional Documenting provider has reviewed patient's vital signs: yes Common normals: no apparent distress, oriented x3 and alert General appearance: cooperative HENMT Common normals: normocephalic, hearing grossly normal bilaterally and moist oral mucous membranes Head and scalp: normocephalic Eye Common normals: PERRL Pupil: PERRL Neck & C-Spine Common normals: full ROM General: normal visual inspection Chest Common normals: inspection of chest normal Respiratory Common normals: normal respiratory effort, no retractions and no use of accessory muscles Back & Pelvis Lumbar spine/lower back: ROM limited, pain with ROM and straight leg raise positive left Sacroiliac joints: SI joints normal Other: bilateral SIJ positive marge(patricks), gaenslens, thigh thrust, compression test strength 4/5 in LLE and 5/5 in RLE decreased sensation to left L4,5,S1 Extremity Common normals: normal to inspection Right upper extremity: hand and digits Left upper extremity: hand and digits Right lower extremity: hip joint Left lower extremity: knee joint Left knee: palpation (moderate to severe pain ), ROM (limited, crepitus noted. pain with medial/lateral stress testing) and other Other: no pain with internal and external rotation of right hip intermittent locking up of bilateral thumbs, notable joint deformation with enlarged joints Neuro Sensorium/orientation: alert, oriented to person and oriented to place; not oriented to time Gait (neuro): antalgic and assistive device used walker Motor exam: no movement abnormalities noted and strength abnormal Psych Common normals: mental status grossly normal, thought process normal, cooperative, affect normal, speech normal and activity/motor behavior normal Speech: normal speech Thought process: normal thought process Results Additional Findings Additional findings: If on a controlled substance or opioids, I have checked an [place]AR[place] report on this patient and there are no aberrancies noted in the prescribing history.??If on a controlled substance or opioid a drug screen was completed and reviewed within the last year, and if there has not been a drug screen completed we ordered one today to monitor higher risk, state monitored pain medication use. As part of providing excellent, safe, comprehensive care, the following was completed at our patient's visit: 1. A medication reconciliation and review to ensure accurate knowledge of current/active medications, including asking our patients to inform us about any cnpv-bgx-mjsyevx medications or herbal remedies/nutritional supplements/alternative remedies. 2. A review to specifically ensure our patients have had annual screening for screening for depression, screening for tobacco use, and screening for unhealthy alcohol use. For concerning screenings had a discussion with the patient, provided patient education, and recommended follow-up with primary care provider when appropriate. If patient noted with a risk of falling, they received education on strength, gait, and balance training to prevent future risk of falling. Portions of this note may have been carried over from the previous visit and updated as appropriate. Please note this office utilizes paper charting in addition to the electronic medical record. A list of current medications, vitals, and PMH is available there as the clinical staff outside of myself do not have access to MMIS charting during the clinic day operations. As part of providing quality comprehensive care the current medications, vitals, and PMH were reviewed in the paper chart. Assessment and Plan Assessment and Plan (1) Lumbar stenosis with neurogenic claudication: (2) Myalgia, other site: (3) Chronic, continuous use of opioids: Assessment and Plan: I feel these medications are improving the patient's quality of life and allow them to tolerate activities of daily living as well as participate in recreational activity.? The patient does not report intolerable side effects. The patient is NOT opioid naive and non-pharmacologic and non-opioid treatment has failed to significantly relieve the patient's pain and improve functionality. The patient has a diagnosis that is related to a somatic or visceral pain etiology. ? ?? I reviewed with the patient the potential risks and side effects with the use of? opioid medications including but not limited to respiratory depression,? sedation, and even . Within the last 12 months I have verified the patient has access to naloxone should? these effects occur. The patient was advised to let? their family know they had Naloxone in case they would need to administer? the medication. I advised the patient to avoid the use of any other? sedation substances including alcohol, THC, and benzodiazepines while? taking opioid medications due to the risk of compounding side effects and? detrimental outcomes. within the last 12 months I have reviewed the PASTRY ASSISTANT, pain treatment agreement and urine drug screen.? ?? A drug screen was completed within the last year, and no aberrancies were noted regarding their use of controlled substances. The patient understands they are subject to the terms and conditions of the pain contract that they have signed. ? ?? I have checked an OARRS report on this patient today and there are no aberrancies noted in the prescribing history.? (4) Sacroiliitis: (5) Lumbar spondylosis: Plan The patient has had over 3 months of moderate to severe low back, bilateral SIJ, and LLE pain with functional impairment and inadequate response to conservative care including NSAIDS (unless there are contraindication such as concurrent blood thinners), multiple oral or topical pain medications, and home exercise program/physical therapy.? Patient has completed >6 weeks of guided home exercise program and/or formal physical therapy program without relief of their symptoms.? I have reviewed the imaging of the lumbar spine and no red flags were identified.? The Oswestry Disability Index was not completed by the patient repeat left L4-5 L5-S1 TFESI under fluoroscopy, prior injection provided at least 50% improvement for 3 months maintain medications, risks vs benefits reviewed continue HEP and aquatherapy as tolerated f/u after injection, consider bilateral SIJ injection if needed
== END 2025-01-09 13:10 | disposition home or self-care (01) ==
LOC: PM 13:09
PROVIDERS: PCP Family Medicine; Visit Provider Nurse Practitioner
DX: M48.062 Spinal stenosis, lumbar region with neurogenic claudication (principal); M79.18 Myalgia, other site; Z79.891 Long term (current) use of opiate analgesic; M47.816 Spondylosis without myelopathy or radiculopathy, lumbar region; M46.1 Sacroiliitis, not elsewhere classified
CPT/HCPCS: G0463

== ENCOUNTER 2025-01-21 09:24 | Day surgery (SDC) | payer MEDICARE, SELFPAY ==
--- OUTSIDE RECORDS SUMMARY | 2025-01-21 09:27 | XMS_ITS | Clinical Summary ---
Author Organization [facility] Address [address] [place] [address] Care Team Providers Care Hair Worker Name Role Phone Haley Matos DO, George Cajetan Unavailable Luis Rogers MD Primary Care Provider [phone] LakkailamiArmen santillanranneto Unavailable [phone] Haley Matos DO, George Cajetan Unavailable Luis Rogers MD Unavailable [phone] Allergies Active AllergyReactionsCriticalityNoted YlrbSiqpvqmbUirohnhMlzvutfNsrr74/24/2013 Decongest Multi-ActionOther: See Ahpfjcdn83/24/2023PenicillinsUnknownHigh 09/13/20126145ZtmuphkkitGjguhfydbpe72/24/2023 Dizziness PropoxypheneRash,VgmlibpJoqz85/24/2023 Headache QuinammGI Upset05/14/2022 Medications MedicationSigDispense QuantityRefillsLast FilledStart DateEnd DateStatus citalopram hydrobromide (CELEXA) 10 mg tablet Take 10 mg by mouth once daily. Treat Gvuoomcmko81/09/2023ctive diclofenac, EC, (VOLTAREN) 75 mg EC tablet Take 75 mg by mouth twice daily. For Arthritis pain03/24/2022ctive isosorbide mononitrate ER (IMDUR) 30 mg 24 hr tablet Take 30 mg by mouth once daily. 1 tablet daily in the AM on an empty stomach Treat for Rcqxhc8603/21/2022ctive levothyroxine (SYNTHROID) 75 mcg tablet Take 75 [...] DateDiagnosed DateSpinal stenosis, lumbar region with neurogenic uuqxcmomzchd55/01/2023Obesity, Class I, BMI 30-34.9009/21/2022Scoliosis, kezaumbddtq51/19/2023 Immunizations ImmunizationAdministration DatesNext Dueinfluenza (aIIV3) vaccine, age 65+ yr, trivalent, PF (FLUAD)11/29/2019influenza (ccIIV4) vaccine, age 6+ mo, quadrivalent, PF (FLUCELVAX)12/02/2021influenza vaccine, unspecified formulation 11/28/2020neumococcal conjugate (PCV13) vaccine, 13 valent (PREVNAR 13) 11/12/2016zoster (ZVL) vaccine, live (ZOSTAVAX)05/27/2017 Social History Tobacco UseTypesPacks/DayYears UsedDateSmoking Tobacco: NeverSmokeless Tobacco: Never Tobacco Cessation:Counseling Given: Not Answered Alcohol UseStandard Drinks/WeekCommentsNever0 (1 standard drink = 0.6 oz pure alcohol)PHQ-2AnswerDate RecordedPHQ-2 dqwrt705rea Deprivation Index AnswerDate RecordedNational Score (1-100), lower number is lower risk63 09/21/2022State Score (1-10), lower number is lower zuqi066ata from: https://www.neighborhoodatlas.medicine.[facility].edu/. Last address used for [address] [place] [address]/21/2022CommentsUnknownSex and Gender InformationValueDate RecordedSex Assigned at BirthNot on fileLegal SexFemale 01/01/2019 11:59 AM ESTGender IdentityNot on fileSexual OrientationNot on file Last Filed Vital Signs Vital SignReadingTime TakenCommentsBlood Puyowrks491/6008 12:51 PM EDT Oxocu425209/21/2022 12:51 PM EDTTemperature--Respiratory Rate--Oxygen Saturation 99%05/14/2022 2:22 PM EDTInhaled Oxygen Concentration--Oejeed45.4 kg (168 lb 6.4 oz)05/14/2022 2:22 PM VGHQmeiov221.4 cm (5')05/14/2022 2:22 PM EDTBody Mass Index32.8905/14/2022 2:22 PM EDT Plan of Treatment Health MaintenanceDue DateLast DoneCommentsAnxiety Paafqhhiv39/10/1958Depression Jsrpikkzx70/10/1958DTaP,Tdap,Td Vaccine (1 - Tdap)04/30/1958Diabetes Screening 04/30/1984Medicare Annual Wellness Visit04/21/2004Bone Density Screening 04/30/2004RSV Vaccine (1 - 1-dose 75+ series)04/30/2014Shingrix Vaccine (2 of 3) Pneumococcal Vaccine: 50+ (2 of 2 - PCV20 or PCV21) Advance Directive Ilwoqbdrsn38/01/2025Covid-19 Vaccine ( season)/, 06/04/2021, 12/13/2020, Additional history existsInfluenza Vaccine (#1), 11/28/2020, 11/29/2019 Insurance MemberSubscriberPlan / Payer (Effective 2004-Present)Name:Alexa Delgado Member ID:[id number] Relation to Subscriber:SelfName:Alexa Delgado Subscriber ID:[id number] Payer ID:Not on file Group ID:Not on file Type:Medicare Address: [place] [id number] Care Teams Team MemberRelationshipSpecialtyStart Date Luis Rogers MD [address] [place] [address] PCP - GeneralFamily Medicine05/14/22 Arsh De Leon Jr., DO [address] [place] [address] [address] [place] [address] ReferringOrthopedics05/03/22 Porsha Garcia [address] [id number] Pain Management05/14/22 Arsh De Leon Jr., DO [address] [facility] [address] [place] [address] Orthopedic05/14/22 Luis Rogers MD [address] [place] [address] ReferringFamily Medicine08/11/22
--- OUTSIDE RECORDS SUMMARY | 2025-01-21 09:27 | XMS_ITS | Clinical Summary ---
Author Organization [facility] Address [address] [place] [address] Care Team Providers Care Executive Administrator Name Role Phone Luis Rogers MD Primary Care Provider [phone] Allergies Active AllergyReactionsCriticalityNoted WpauWsoziimrJyexuwi78/12/2023 PropoxypheneGI intolerance,Ekmvocdl75/12/2023seudoephedrine Hcl08/02/2022 NOTES SENSITIVITY XfwuxxejipbBqxmexl03/15/9999RyaixqsfvnQnhhufpkk53/12/2023enicillinsUnknown 08/02/2022 CHILDHOOD ALLERGY QuinineGI intolerance,Headache,Gisobcdxu07/12/2023 QUINAMM Medications MedicationSigDispense QuantityRefillsLast FilledStart DateEnd DateStatus [...] Oil) 1000 MG capsule as directed OrallyActive Ktukhmvfuki-Vubiifsiulo-RMK (Triple Flex) 500-400-125 MG tablet 1 tablet with meals Orally twice daily for 30 daysActive HYDROcodone-acetaminophen ([place]) 5-325 MG tablet 1 tablet as needed [...] PO Take by mouth + cheleated zincActive Ybgjpsr-Xpjbidv-Nkxsaw Edwar (SALONPAS TD) Place on the skinActive Trolamine Salicylate (BLUE-EMU MAXIMUM PAIN RELIEF EX) Apply topicallyActive Active Problems ProblemNoted DateDiagnosed DateFibrocystic breast ykndtqc6112/06/2023rimary osteoarthritis of right knee12/06/2023Spinal stenosis, lumbar region with neurogenic aeddkvdsgqhe93/01/2023Scoliosis of lumbar spine04/11/2022Essential ormuibraodmg02/23/7602Etprdiaqcyyxat69/23/2013 Immunizations ImmunizationAdministration DatesNext DueInfluenza, Etjxbfxhray01/08/2021 Influenza, injectable, MDCK, preservative free, arqxgghsugoj39/12/2022Influenza, trivalent, /08/2020Moderna Bivalent Booster Gvqaelmzbul57/19/2022 Pneumococcal Conjugate PCV 13011/12/2016Zoster, live05/27/2017 Family History [...] on one occasion?Never12/06/2023HQ-2 AnswerDate RecordedPatient Health Questionnaire-2 Alqvm222regnant CommentsNoSex and Gender InformationValueDate RecordedSex Assigned at BirthNot on fileLegal MohQjxqnm68/15/2023 6:37 PM EDTGender IdentityNot on fileSexual OrientationNot on file Last Filed Vital Signs Vital SignReadingTime TakenCommentsBlood Rrfpaqzr339/8212/06/2023 11:32 AM EDT Pulse--Temperature--Respiratory Rate--Oxygen Saturation--Inhaled Oxygen Concentration--Fzpgbe36.4 kg (164 lb)12/06/2023 11:32 AM WWEHjenme735.3 cm (4' 10 )12/06/2023 11:32 AM EDTBody Mass Index34.281 11:32 AM EDT Plan of Treatment DateTypeDepartmentCare Team (Latest Contact Info)Otlvwrnlble56/09/2025 1:25 PM ESTOffice Visit [facility] [address] [place] [address] Shilpa Read MD [address] [place] [address] 12/10/2025 11:30 AM EDTOffice Visit [facility] [address] [place] [address] Armando Thayer, [address] [place] [address] Health MaintenanceDue DateLast DoneCommentsPneumococcal Vaccine: 65+ Years (2 of 2 - PCV20 or PCV21)COVID-19 Vaccine ( season) 508/01/2023, 12/09/2021, 06/04/2021, Additional history existsInfluenza Vaccine (#1)/, 10/25/2022, 12/02/2021, Additional history exists Insurance * Guarantor: Alexa Delgado TypeRelation to PatientDate of BirthPhone Billing AddressPersonal/PjlifnOpxc98/10/1941 [address] [address] [place] [address] Care Teams Team MemberRelationshipSpecialtyStart DateEnd Luis Rogers MD [address] [facility] [place] [address] PCP - GeneralFamily Medicine08/02/22
--- OUTSIDE RECORDS SUMMARY | 2025-01-21 09:27 | XMS_ITS | Clinical Summary ---
Author Organization [facility] Address [address] [facility] [place] [address] Phone Care Team Providers Care Film Numberer Name Role Phone Unavailable Primary Care Provider Unavailabl e Social History Tobacco UseTypesPacks/DayYears UsedDateSmoking Tobacco: Never Assessed CommentsUnknownSex and Gender InformationValueDate RecordedSex Assigned at Not on fileLegal XukMzdzwr23/25/2022 6:29 PM ESTGender IdentityNot on fileSexual OrientationNot on file Plan of Treatment Not on file
--- OUTSIDE RECORDS SUMMARY | 2025-01-21 09:39 | XMS_ITS | CCD ---
Author Organization [facility] Providers Care Jewel Inspector Name Role Phone PHYSICIAN, DEFAULT Unavailable Unavailable PHYSICIAN, DEFAULT Unavailable Unavailable Haley Bright DO, George Cajetan Unavailable Galina Palmer MD Primary Care Provider Lakshmipathy, Narendranath Unavailable [phone] Haley Bright DO, George Cajetan Unavailable ESTELA [...] Unavailable HOY ., DR MOJICA Consulting Unavailable WHITEWATER, DR HERMES Jean Baptiste Consulting Unavailable LATANYA [...] Unavailable Galina Palmer MD Primary Care Provider [phone] Galina Palmer MD Attending Provider Ishmael [...] of OnsetReaction(s) Facility (9 sources)Codeine; Translations: [CODEINE]Drug Dfgtkqi63-48-9877Maiezxv, Unknown (qualifier value)[facility] (4 sources)Penicillins; Translations: [PENICILLINS]Drug Pibdrad26-82-3152Vgryixw [facility] (6 sources)pregabalin; Translations: [PREGABALIN]Drug Enaiwzr70-90-0906 Intolerance, Unknown (qualifier value)[facility] Work Phone: (7 sources)Propoxyphene; Translations: [PROPOXYPHENE]Drug Aswzzoi83-08-1339Rqii, Unknown, GI intolerance, Headache, Unknown (qualifier value)[facility] (4 sources)quiNINE; Translations: [QUINAMM]Drug Zavrfba89-29-5213QB Upset [facility] (5 sources)Decongest Multi-Action; Translations: [Decongest Multi-Action]Drug Cldvsbd06-28-5388Nyagb: See CommentsSumma Health (1 source)Acetaminophen / HYDROcodoneDrug AllergyThe [facility] (2 sources)CodeineDrug Nkzxdhn83-13-7901TtoMer[facility] (3 sources)Fluconazole; Translations: [Diflucan][facility]ergyThe [facility] (2 sources)PenicillinsDrug allergy (disorder)78-37-7762Lyw [facility] (3 sources)pregabalin; Translations: [Lyrica]Drug AllergyThe [facility] (4 sources)Propoxyphene; Translations: [Darvon][facility]rug [facility]Mer[facility] (1 source)quiNINEDrug AllergyThe [facility] (1 source)FluconazoleAllergy to auystmfht42-75-8549IvyxifmMTLH Healthcare (1 source)PenicillinsPropensity to adverse zhefipuuy29-19-0210ArzlmdzEGII Healthcare (1 source)PregabalinPropensity to adverse icujpiify61-16-9235RnjucppztTMYG Healthcare (1 source)PseudoephedrineDrug Wcnmsaf63-00-8670BYWF [facility] (5 sources)quiNINE; Translations: [quinine]Drug Kgjjshj54-85-1448GH intolerance, Headache, Dizziness, Unknown (qualifier value)[facility] (2 sources)Fluconazole; Translations: [fluconazole]Drug AllergyUnknown (qualifier value)[facility] (4 sources)Penicillin; Translations: [penicillin]Drug AllergyUnknown (qualifier value)[facility] Medications Current Medications MedicationDrug Class(es)DatesSig (Normalized)Sig (Original)Tylenol (6 sources)Start: 12-03-9078Gvzlsim Oral, Refills(s) 0 Start Date: 10/10/24 Status: Ordered Repeat number: 1acetaminophen (Tylenol) 500 MG tablet Take by mouth. ActiveComment on above:Take 500 mg by mouth twice daily.acetaminophen 325 mg / HYDROcodone bitartrate 5 mg oral tablet (6 sources)Opioid AgonistStart: 37-70-0233geih 1 tablet by mouth every six hours [place] 325 mg-5 mg oral tablet tab(s), Oral, q6hr, Refill(s) 0 Start Date: 10/10/24 Status: Ordered Repeat number: 1Start: 88-63-8917vgpx 1 tablet by mouth twice daily as neededHYDROcodone-acetaminophen ([place]) 5-325 MG tablet 1 tablet as needed Orally twice daily 04/29/2022 ActiveComment on above:Take 1 tablet by mouth twice daily as needed.[facility] 24 Hour (2 sources)Start: 72-30-0623Cpxdhdi 24 Hour Refills(s) 0 Start Date: 10/10/24 Status: Ordered Repeat number: 1Aspir 81 (2 sources)Start: 45-28-0822eopp 1 mg by mouth once dailyAspir 81 [...] mg by mouth once daily.Caltrate (4 sources)Start: 70-93-5430aicd 1 mg by mouth once dailyCaltrate mg, Oral, Daily, Refills(s) 0 Start Date: 10/10/24 Status: Ordered Repeat number: 1Start: 59-78-3747Lhzuspqr 600 + D Oral, BID, Refill(s) 0 Start Date: 10/10/24 Status: Ordered Repeat number: 1Calcium Carbonate / Vitamin D (1 source)Calcium Carbonate-Vitamin D (CALTRATE 600+D PO) Take by mouth twice a day. AluffwSkacdlb-Lpxihvf-Jzhyxu Edwar (SALONPAS TD) (1 source)Casputa-Bslokze-Fxatzg Edwar (SALONPAS TD) Place on the skin Active citalopram 10 mg oral tablet (6 sources)Serotonin Reuptake InhibitorStart: 96-88-7425ctbn 1 mg by mouth once dailycitalopram 10 mg Tab mg tab(s), Oral, Daily, Refills(s) 0 Start Date: 10/10/24 Status: Ordered Repeat number: 1Start: 42-01-5928wtqy 1 tablet by mouth once dailycitalopram hydrobromide (CELEXA) 10 mg tablet Take 10 mg by mouth once daily. Treat Depression 0 03/01/2022 ActiveComment on above:Take 10 mg by mouth once daily. Treat Depressioncyclobenzaprine hydrochloride 5 mg oral tablet (6 sources)Muscle RelaxantStart: 83-82-0149swzd 1 mg by mouth three times daily [...] release oral tablet (6 sources)Nonsteroidal Anti-inflammatory DrugStart: 23-21-4608yhcw 1 mg by mouth twice dailydiclofenac sodium 75 mg Oral EC Tab mg tab(s), Oral, BID, Refills(s) 0 Start Date: 10/10/24 Status: Ordered Repeat number: 1Start: 71-22-8893gjth 1 tablet by mouth twice daily for paindiclofenac, EC, (VOLTAREN) 75 mg EC tablet Take 75 mg by mouth twice daily. For Arthritis pain 0 03/24/2022 Activediclofenac (Voltaren) 75 MG EC tablet every 12 (twelve) hours. Active Comment on above:Take 75 mg by mouth twice daily. For Arthritis painferrous sulfate 325 mg delayed release oral tablet (3 sources)Start: 69-32-7264jszz 1 mg by mouth once dailyferrous sulfate 325 mg oral enteric coated tablet mg tab(s), Oral, Daily, Refills(s) 0 Start Date: Status: Ordered Repeat number: 1Start: 01-75-6181wrxx 1 tablet by mouth in the morningferrous sulfate 325 (65 Fe) MG tablet Take 1 tablet by mouth in the morning and 1 tablet before bedtime. 09/16/2023 Activefexofenadine hydrochloride 180 mg oral tablet (5 sources)Histamine-1 Receptor Antagonist End: 22-87-8934zmllhfslbkba ([facility]) 180 MG tablet [facility] 12/06/2023 Discontinued (Duplicate order)Comment on above:Take 180 mg by mouth once daily. flax oral capsule (2 sources)Start: 39-29-2508pgis oral capsule Refill(s) 0 Start Date: 10/10/24 Status: Ordered Repeat number: 1gabapentin 100 mg oral capsule (2 sources)Anti-epileptic AgentStart: 68-46-0852quzr 1 mg by mouth three times dailygabapentin 100 mg Cap mg cap(s), Oral, TID, Refills(s) 0 Start Date: 10/10/24 Status: Ordered Repeatnumber: 1Jyimuruhart-Ipezhoephrw-REK (Triple Flex) 500-400-125 MG tablet (1 source)take 1 tablet by mouth twice daily at mealtime Cmnqhuslhhb-Hgpvweetnir-RUO (Triple Flex) 500-400-125 MG tablet 1 tablet with meals Orally twice daily for 30 days Tihmpm90 hr isosorbide mononitrate 30 mg extended release oral tablet (6 sources)Nitrate VasodilatorStart: 53-13-3726ztqy 1 mg by mouth once daily in the morningisosorbide mononitrate 30 mg ER Tab mg tab(s), Oral, qAM, Refills(s) 0 Start Date: 10/10/24 Status: Ordered Repeat number: 1Start: 52-36-3362hpor 1 tablet by mouth in the morning, then take 1 tablet by mouth every twenty-four hoursisosorbide mononitrate ER (Imdur) 30 MG 24 hr tablet Take 30 mg by mouth in the morning. 03/21/2022ctiveComment on above:Take 30 mg by mouth once daily. 1 tablet daily in the AM on an empty stomach Treat for Anginalevothyroxine sodium 0.075 mg oral tablet (6 sources)l-ThyroxineStart: 96-39-6596ingt 1 tablet by mouth once daily levothyroxine 75 mcg (0.075 mg) Tab mcg tab(s), Oral, Daily, Refills(s) 0 Start Date: 10/10/24 Status: Ordered Repeat number: 1Start: 33-19-5449ekivysqlhhfsa (Synthroid, Levoxyl) 75 MCG tablet 1 (one) time each day at the same time. 03/18/2022ctiveComment on above:Take 75 mcg by mouth once daily. Patient takes 1 tablet in the AMlinseed oil 1000 mg oral capsule (4 sources)Flaxseed, Linseed, (Flax Seed Oil) 1000 MG capsule as directed Orally ActiveComment on above:Take 1,000 mg by mouth once daily.liothyronine sodium 0.025 mg oral tablet (6 sources)l-TriiodothyronineStart: 20-07-2989vhnt 1 tablet by mouth once daily liothyronine [...] zinc Activemagnesium amino acid chelate (5 sources)Start: 25-10-6516uhoegklgm amino acids chelate Oral, Refills(s) 0 Start Date: 10/10/24 Status: Ordered Repeat number:1take 250 mg by mouth once daily at bedtimeMAGNESIUM AMINO ACID CHELATE ORAL Take 250 mg by mouth once daily. At bedtime 0 ActiveComment on above:Take 250 mg by mouth once daily. At bedtimeMelatonin (6 sources)Start: 50-07-2646Ehozfkcin Once a day (at bedtime), Refills(s) 0 [...] extended release oral tablet (6 sources)beta-Adrenergic BlockerStart: 91-99-7812avhh 1 mg by mouth once daily metoprolol succinate 50 mg ER Tab mg tab(s), Oral, Daily, Refills(s) 0 Start Date: 10/10/24 Status: Ordered Repeat number: 1Start: 90-81-6501rops 1 tablet by mouth twice dailymetoprolol succinate ER (TOPROL XL) 50 mg 24 hr tablet Take 50 mg by mouth twice daily. 0 03/24/2022 ActiveComment on above:Take 50 mg by mouth twice daily.24 hr mirabegron 25 mg extended release oral tablet (1 source)beta3-Adrenergic AgonistStart: 11-14-2024 End: 30-97-7413zdnl 1 tablet by mouth once dailyMyrbetriq 25 mg oral tablet, extended release 25 mg = 1 tab(s), Oral, Daily, X 30 day(s), # 30 tab(s), Refills(s) 3, Pharmacy: [facility]/pharmacy #[id number], 150, cm, 11/14/24 15:17:00 EDT, Height/Length Dosing, 79.9, kg, 11/14/24 15:17:00 EDT, Weight Dosing Start Date: 11/14/24 Stop Date: 03/14/25 Status: Ordered Quantity: 30.0 Unit: tab(s) Repeat number: 4 Indications: Overactive bladder;Multi Vitamin+ (2 sources)Start: 15-88-8737Kabhy Vitamin+ Refill(s) 0 Start Date: 10/10/24 Status: Ordered Repeat number: 1Multiple Vitamin (multivitamin) tablet (1 source)take 1 tablet by mouth in the morningMultiple Vitamin (multivitamin) tablet Take 1 tablet by mouth in the morning. ActiveNitroglycerin (6 sources)Nitrate VasodilatorStart: 92-94-4896jbwuyigtramiq Refills(s) 0 Start Date: 10/10/24 Status: Ordered [...] 3x daily As needed for chest pain [place]-3 1000 mg oral capsule (2 sources)Start: 38-39-6266Fuxjg-3 1000 mg oral capsule mg cap(s), Oral, Refills(s) 0 Start Date: 10/10/24 Status: Ordered Repeat number: 1Osteo Bi-Flex Triple Strength (2 sources)Start: 33-65-5571Vvegb Bi-Flex Triple Strength Refill(s) 0 Start Date: 10/10/24 Status: Ordered Repeat number: 1oxybutynin chloride 5 mg oral tablet (2 sources)Cholinergic Muscarinic AntagonistStart: 23-93-2302uick 1 tablet by mouth once dailyoxybutynin 5 mg Tab 5 mg = 1 tab(s), Oral, Daily, # 30 tab(s), Refills(s) 0, Pharmacy: [facility]/pharmacy#[id number], 150, cm, 10/10/24 10:18:00 EDT, Height/Length Dosing, 80, kg, 10/10/24 10:18:00 EDT, Weight Dosing Start Date: 10/10/24 Status: Ordered Quantity: 30.0 Unit: tab(s) Repeat number: 1 Indications:Overactive bladder;pantoprazole 40 mg delayed release oral tablet (3 sources)Proton Pump InhibitorStart: 71-53-5496czvu 1 mg by mouth once daily Pantoprazole [address] Tab mg tab(s), Oral, Daily, Refills(s) 0 Start Date: 10/10/24 Status: Ordered Repeat number: 1Start: 00-90-6531oiuq 1 tablet by mouth once dailypantoprazole (ProtoNix) 40 MG EC tablet Take 40 mg by mouth Daily 10/13/2023 ActivePotassium Chloride (2 sources)Start: 76-62-4118wufjhqipz chloride Refills(s) 0 Start Date: 10/10/24 Status: Ordered Repeat number: 1Salonpas Pain Patch (2 sources)Start: 80-98-9372Kjmtriqy Pain Patch Refill(s) 0 Start Date: 10/10/24 [...] ActiveComment on above:Take by mouth twice daily.capsaicin 0.93088 mg/mg medicated patch (3 sources)Capsaicin (SALONPAS-HOT) 0.025 [...] DateEpisodic/ChronicAnxiety disorders (2 sources)Mixed anxiety and depressive xacvetgc87-87-3059YlfhmkwJvoccizfw and vision defects (1 source)Unspecified visual loss; Translations: [UNSPECIFIED VISUAL LOSS]Onset: 16-85-8946CvvbpowPtakgce dysrhythmias (2 sources)Supraventricular ydpnsrxspms70-42-1642VkyjkbkBsfivwhcin heart failure; nonhypertensive (5 sources)Unspecified diastolic (congestive) heart failure; Translations: [Congestive heart failure]Onset: 997736-28-4019FwltwufWsylcmzx atherosclerosis and other heart disease (4 sources)Coronary ittjpqckfkycnwdn78-47-6141BbcljrzEyrrdrtlbl and other anemia (2 sources)Anemia, unspecified; Translations: [ANEMIA UNSPECIFIED]Onset: 90-26-9655WhkfvmbtYjwdkxrs, dementia, and amnestic and other cognitive disorders (4 sources)Cvjvrxsz36-47-8966XdzlocpSqdeqinu of white blood cells (4 sources)Uxytfpdetrr95-35-9608EkefmsyYqswnfzfc of lipid metabolism (7 sources)Hyperlipidemia, unspecified; Translations: [Hyperlipidemia]Onset: 325474-93-2449XdssvkaPnnoyofgf hypertension (8 sources)Essential (primary) hypertension; Translations: [Essential hypertension]Onset: 718018-55-2735GvieaioZuvrb and electrolyte disorders (10 sources)Dehydration; Translations: [Hypo-osmolality and hyponatremia]Onset: 06-53-3417ZfkfavkvAguqzxletegnb symptoms and ill-defined conditions (4 sources)Stress incontinence (female) (male); Translations: [Female stress incontinence]Onset: 53-68-7015NkxqixlFhqyoqgemiauj symptoms and ill-defined conditions (12 sources)Dysuria; Translations: [Other abnormal findings in urine]Onset: 83-63-0216CizigmetDgwcmxqfyeyt with complications and secondary hypertension (4 sources)Hypertensive heart disease with heart failure; Translations: [HTN HEART DISEASE W/HEART FAIL]Onset: 48-11-7621DxujddnCtyxisxbhhyi breast conditions (1 source)Fibrocystic disease of breast; Translations: [Diffuse cystic mastopathy of unspecified breast]Onset: 672561-68-5631ZrfrqveUjtmxegludu chest pain (3 sources)Chest pain, unspecified; Translations: [Chest pain]Onset: 11-13-2021 91-84-6538OuiuoelqLlpatgbkuvv deficiencies (1 source)Vitamin D deficiency, unspecified; Translations: [VITAMIN D DEFICIENCY UNSPECIFIED]Onset: 86-42-9097XcrirnyAkap wounds of extremities (2 sources)Laceration of upper skd25-42-2534AptjqvbvMajkbniwjqxgqj (8 sources)Bilateral primary osteoarthritis of hip; Translations: [Unspecified osteoarthritis, unspecified site]Onset: 007529-07-2437RpeofupJyxdisrezfbc (2 sources)Senile tffowawpkyys80-63-4367PffcgwpNrmnm acquired deformities (4 sources)Scoliosis of lumbar spine; Translations: [Scoliosis, unspecified] Onset: 19-86-8373KvxyjucTzadj acquired deformities (5 sources)Scoliosis deformity of spine; Translations: [Scoliosis, unspecified] Onset: 656893-08-3747QcbzfocYccde acquired deformities (1 source)Scoliosis, unspecified; Translations: [SCOLIOSIS UNSPECIFIED]Onset: 27-54-9410OeejdszIhiqs acquired deformities (1 source)Lumbar spondylolisthesis; Translations: [Spondylolisthesis, lumbar region]EpisodicOther bone disease and musculoskeletal deformities (1 source)Idiopathic scoliosis of lumbar spine; Translations: [Other idiopathic scoliosis, lumbar region]ChronicOther circulatory disease (2 sources)Easy xfihdfvo57-97-4911YcgxoaviAtoxr connective tissue disease (1 source)Presence of right artificial knee joint; Translations: [PRESENCE RT ARTIFICIAL KNEE JOINT]Onset: 73-25-4641CckcbjrWaffg connective tissue disease (5 sources)Other muscle spasm; Translations: [OTHER MUSCLE SPASM]Onset: 86-58-9720XutsitijWghfm diseases of bladder and urethra (2 sources)Detrusor overactivity; Translations: [Overactive bladder]Onset: 20-15-9680JvyfdwuIxbdb diseases of bladder and urethra (2 sources)Overactive zzscuxt75-71-1999LuwqqzvHmovp diseases of veins and lymphatics (2 sources)Stasis jejoivhuem84-07-8750SvkpappwUjayl ear and sense organ disorders (2 sources)Otitis nurtzuz01-88-9092RrjmfalZuxvr nervous system disorders (4 sources)Other specified mononeuropathies of right lower limb; Translations: [OTH SPEC MONONEUROPATH RT LOW LIMB]Onset: 37-21-0004OkvpploAwhzg nervous system disorders (4 sources)Other specified mononeuropathies; Translations: [OTHER SPECIFIED MONONEUROPATHIES]Onset: 62-64-2431QeunvyuYwurv nervous system disorders (1 source)Other chronic pain; Translations: [OTHER CHRONIC PAIN]Onset: 51-83-4254SwbdftpPwjno non-traumatic joint disorders (2 sources)Allergic arthritis of the shoulder ataeqw42-49-2067LzspanfSaxbt non- traumatic joint disorders (2 sources)Bilateral arthritis of aranv53-12-0658KjlgmojEehii non-traumatic joint disorders (5 sources)Pain in right hip; Translations: [PAIN IN RIGHT HIP]Onset: 05-13-2022 EpisodicOther nutritional; endocrine; and metabolic disorders (4 sources)Obese class I; Translations: [Obesity, unspecified]Onset: 09-21-2022 31-95-5910AglrlxwYorxc nutritional; endocrine; and metabolic disorders (2 sources)Body mass index 30+ - xpjxozy15-15-9147KheeamqNardc nutritional; endocrine; and metabolic disorders (2 sources)Wxlfgjd48-67-3645KexqablVonfq screening for suspected conditions (not mental disorders or infectious disease) (6 sources)Encounter for screening mammogram for malignant neoplasm of breast; Translations: [Patient encounter status]Onset: 29-37-6375NmrsmbjmObuem upper respiratory disease (2 sources)Allergic ybaqarrm66-32-4852NfenimjTdmkh upper respiratory disease (2 sources)Seasonal allergic lhidkoie12-00-3692TkpcluoXsfnvifwx heart disease (2 sources)Secondary pulmonary riotervtajyr96-91-4883TnobfgvYfvjuius codes; unclassified (2 sources)Obstructive sleep apnea jqtlskom66-66-6361RhslljcPylggsfi codes; unclassified (2 sources)Sleep owknx60-65-3521OzqzezfKjhwkpzh codes; unclassified (2 sources)Jbuimqe66-71-4922ScphykekUatdjiob codes; unclassified (2 sources)Clouded aafyjddsjsvtp44-75-3278YlthsbqeGsxalcby codes; unclassified (2 sources)Xpgem10-83-0460WlwefgfnPymkfrrt codes; unclassified (4 sources)Poor short-term -22-2201CbaowrjnKpmfzuhhgqr failure; insufficiency; arrest (adult) (2 sources)Chronic respiratory tjipyxp09-08-9026AziitppOofbmjofgnd; intervertebral disc disorders; other back problems (20 sources)Lumbar spondylosis; Translations: [Spondylosis without myelopathy or radiculopathy, lumbar region]Onset: 59-29-9986WpjzfaxDlxzprqhxkb; intervertebral disc disorders; other back problems (18 sources)Chronic low back pain; Translations: [Lumbago with sciatica, right side]Onset: 33-13-6687SqoatkkoGjtqzxj disorders (13 sources)Hypothyroidism, unspecified; Translations: [Thyrotoxicosis, unspecified without thyrotoxic crisis or storm]Onset: ChronicTransient cerebral ischemia (2 sources)Transient cerebral fkyfhfpu64-33-5080YyalzbdIcizdqzcleca (4 sources)LOW BACK PAIN, UNSPECIFIED; Translations: [LOW BACK PAIN, UNSPECIFIED]Onset: 15-77-0349Exfgixrhfvlg (1 source)PERSONAL HISTORY OF COVID-19; Translations: [PERSONAL HISTORY OF COVID-19]Onset: 25-88-3788Ivylokkcqwdg (1 source)CONTACT W/AND (SUSP) EXPOS COVID-19; Translations: [CONTACT W/AND (SUSP) EXPOS COVID-19]Onset: 10-36-5283Yyunymbqtvfy (2 sources)Arthropathies and related disorders (navigational concept)10-10-2024 Unclassified (2 sources)Asymptomatic microscopic joignoqgo83-45-7810Naqgi infection (1 source)COVID-19; Translations: [COVID-19]Onset: 11-13-2021 Past or Other Problems Problem ClassificationProblemDateDocumented DateEpisodic/ChronicConditions associated with dizziness or vertigo (4 sources)Dizziness and giddiness; Translations: [DIZZINESS AND GIDDINESS] Onset: 36-52-8786BftapkzfKlafvexq mellitus without complication (1 source)Other abnormal glucose; Translations: [OTHER ABNORMAL GLUCOSE]Onset: 06-87-9685TvcvpjmcWpcwwrq and fatigue (4 sources)Weakness; Translations: [WEAKNESS]Onset: 13-78-6660VjufgecfUkyldf and vomiting (1 source)Nausea with vomiting, unspecified; Translations: [NAUSEA WITH VOMITING UNSPECIFIED]Onset: 11-61-2967VfgwjmglVqlka aftercare (1 source)custodial (current) use of aspirin; Translations: [RADIO INTERFERENCE SUPERVISOR CURRENT USE OF ASPIRIN]Onset: 22-04-8414ZhcmhbrsDwdto aftercare (1 source)Other termite treater (current) drug therapy; Translations: [OTH RADIO INTERFERENCE SUPERVISOR CURRENT DRUG THERAPY]Onset: 04-23-0755LzxyolaaDvweh bone disease and musculoskeletal deformities (1 source)Other specified disorders of bone density and structure, unspecified site; Translations: [OTH D/O BONE DEN STRUCT UNS SITE]Onset: 37-79-2779Ahnpcebt Other circulatory disease (1 source)Personal history of transient ischemic attack (TIA), and cerebral infarction without residual deficits; Translations: [PERS HX TIA AND CI NO RESID DEFICIT]Onset: 58-48-6383XtqcdsniXohjb connective tissue disease (1 source)Sarcopenia; Translations: [SARCOPENIA]Onset: 18-04-7478LfgdrahzJtmpe gastrointestinal disorders (1 source)Diarrhea, unspecified; Translations: [DIARRHEA UNSPECIFIED]Onset: 54-41-0121YutjkusdVtrtg lower respiratory disease (1 source)Chronic cough; Translations: [CHRONIC COUGH]Onset: 35-67-3678Cgrxivrp Other non-traumatic joint disorders (5 sources)Pain in right knee; Translations: [PAIN IN RIGHT KNEE]Onset: 20-60-1181IfejrrzwEdnkokdd codes; unclassified (1 source)Acquired absence of both cervix and uterus; Translations: [ACQUIRED ABSENCE BOTH CERVIX AND UTERUS]Onset: 49-85-7816EtqportmMzlxvzac codes; unclassified (1 source)Acquired absence of other specified parts of digestive tract; Translations: [ACQ ABSENCE OTH PART DIGESTV TRACT]Onset: 03-83-7891Kiyjcvyz Unclassified (1 source)LOW BACK PAIN, UNSPECIFIED; Translations: [LOW BACK PAIN, UNSPECIFIED] Onset: 04-06-2022 Results Test NameValueInterpretationReference RangeFacilityUrology Office/Clinic Noteon 74-07-6620Uvsgqtc Office/Clinic NoteUrology Office/Clinic Note Chief Complaint Pt [...] day(s), # 30 tab(s), Refills(s) 3, Pharmacy: [facility]/pharmacy #[id number], 150, cm, 11/14/24 15:17:00 EDT, Height/Length Dosing, 79.9, kg, 11/14/24 15:17:00 EDT,Weight Dosing 2. Incomplete bladder emptying (R33.9: Retention of urine, unspecified) PVR (cc): 10/10/24 - 146 11/14/24 - PVR improved. Pt reassured she is emptying better. -Cont sx monitoring Ordered: 16206 Measure Post Void residual urine and/or bladder [...] Urnls Dip Stick Auto w/o Microscopy POC 66550 3. NILESH (stress urinary incontinence, female) (N39.3: [...] Cervical spondylosis Chest pain (more content not included)...NormalAdena Health System Comment on above:Result Comment: Electronically Signed By: Jacinta Long PA-C\.br\Date and Time Signed: 11/14/24 16:19 EDTUrinalysis with Microon 68-21-7707Bhuah (U)ColorlessAbnormalYBrown Memorial HospitalComment on above:Result Comment: Microscopic readings are only performed on those samples that meet specific criteria set forth by [facility]. Performed By: #### [id number] #### [facility] [address] [place] [place], [place] [address]Gxnmwty (U) [Mass/Vol]NegativeNormalNegativeAdena Health SystemComment on above:Performed By: #### [id number] #### [facility] [address], [place] [address]Grlnwbp Ql (U)NegativeNormalNegCleveland Clinic Hill[facility] Comment on above:Performed By: #### [id number] #### [facility] [address] [place], [place] [address]RI BloodTraceAbnormalNegativeAdena Health SystemComment on above:Performed By: #### [id number] #### [facility] [address] [place], [place] [address]AG ClarityClearNormalClearAdena Health SystemComment on above:Performed By: #### [id number] #### [facility] [address] [place], [place] [address]VD Leuk EstNegativeNormalAkron Children's Hospital Comment on above:Performed By: #### [id number] #### [facility] [address] [place], [place] [address]GP NitriteNegativeNoCleveland Clinic [facility] Hospital Comment on above:Performed By: #### [id number] #### [facility] [address] [place], [place] [address]TL pH6.0Invalid Interpretation Code5.0-9.0[facility] SystemComment on above:Performed By: #### [id number] #### [facility] [address], [place] [address]YJ ProteinNegativeNormalNegCleveland Clinic Hill[facility] Hospital Comment on above:Performed By: #### [id number] #### [facility] [address], [place] [address]IW Spec Grav1.006Invalid Interpretation Code1.005-1.030A[facility] Health SystemComment on above:Performed By: #### [id number] #### [facility] [address] [place], [place] [address]MB UrobilinogenNegativeNormalNegCleveland Clinic Hillcrest HospitalComment on above:Performed By: #### [id number] #### [facility] [address] [place], [place] [address]Jyefdvlahrib (U) [Mass/Vol]NegativeNormalNegativeAdena Health SystemComment on above:Performed By: #### [id number] #### [facility] [address] [place], [place] [address]RA Spec DescClean CatchNormRiverside Methodist HospitalComment on above:Performed By: #### [id number] #### [facility] [address] [place], [place] [address]Boghn Cultureon 13-50-1605Mnfmcjbn identified Cx Nom (U)No Growth 2 Days PERFORMED BY: [facility] [address] [id number] PATHOLOGIST VEHICLE CARE SPECIALIST BRAULIO CARDOZO M.D.[facility] Physician GroupComment on above: Performed By: #### CUU #### [facility] [address] [id number] USACNOVon [id number] Visit (NSADHC) ALEXA DELGADO ([id number]) 1940 F Date Time Provider Department 09/21/22 1:00 PM CAROLYN VANEGAS [facility] During your visit today, we recorded [...] Physical Function Percentile 2 (more content not included)...NormalWadsworth-Rittman HospitalXR LSPINE 2_3 VIEWSon [id number] LSPINE 2_3 VIEWSEXAMINATION: XR LSPINE 2_3 VIEWS [...] changes with rotatory dextroscoliosis Electronically authenticated by: EHRMES SUAREZ Date: 2022-07-16 11:34[facility] [id number] Visit (SPMESH) ALEXA DELGADO ([id number]) 1940 F Date Time Provider Department 05/14/22 2:30 PM [facility] During your visit today, we recorded the following information about you: Pulse Blood pressure Weight Height 72/minute 158/87 76.4 kg 1.524 m Marty Dozier DO 05/15/2022 10:02 PM Signed [facility] - [facility] Spine [...] Ratio: R>L low back Current Treatment: Medications [place] 5-325 mg BID - helps Diclofenac 75 [...] but still has pain -01/28/22 Noemi Sequeira DIRECTOR OF PRODUCT MANAGEMENT: BL Lumbar erector spinae TPI (0.125% Marcaine, [...] ongoing as of 04/17/21 -03/08/21 Noemi Sequeira DIRECTOR OF PRODUCT MANAGEMENT: Left rhomboid TPI (0.125% Marcaine, 40 mg Kenalog) -02/03/21 LESI - moderate relief for 4 days Prior spine surgery: -2006 L4-5 Discectomy Previously treated by: -[facility], previously Dr. Niko Beckwith [...] today. She has an evaluation at the [facility] tomorrow at the [facility]. RECOMMENDATIONS: We will see the pat (more content not included)...Normal [facility] ClevelandCULTURE URINEon 85-67-0317GERFNSP URINECulture Observations: LIGHT GROWTH OF MIXED GENITAL ALANIS. NO POTENTIAL PATHOGENS SEEN.NormalThe [facility] Hospital DaytonComment on above:Performed By: #### URCX ####[facility] Unqpzgbhgr[address] [place], [place] [address]Dr. Yilan ChangUA RANDOM W/MICROSCOPICon [id number] SEENNormalNONE SEENMercy Health St. [facility] Comment on above:Performed By: #### UAMIC ####[facility] Tltuomsaxt[address] [place], [place] [address]Dr. Yilan ChangBilirubin Ql (U)Negative NormalNEGATIVEMercy Health St. Elizabeth Youngstown HospitalComment on above:Performed By: #### UAMIC ####[facility] Eqvrtmegjw[address] [place], [place] [address]Dr. Yilan ChangCASTNONE SEENNormalNONE SEENMercy Health St. Elizabeth Youngstown HospitalComment on above: Performed By: #### UAMIC ####[facility] Nbeueuyvdk[address] [place], [place] [address]Dr. Yilan ChangClarity (U)CLEARNormalCLEARMercy Health St. Elizabeth Youngstown HospitalComment on above:Performed By: #### UAMIC ####[facility] Elfgulkmnb[address] [place], [place] [address]Dr. Yilan ChangColor (U) YELLOWNormalYELLOWMercy Health Willard Hospital HospitalComment on above:Performed By: #### UAMIC ####[facility] Hqqkmtjrzl[address] [place], [place] [address]Dr. Yilan ChangCrystals LM Nom (Urine sed)NONE SEENNormalNONE SEENMercy Health St. Elizabeth Youngstown HospitalComment on above:Performed By: #### UAMIC ####[facility] Szpgjbqcbe40[address] [place], [place] [address]Dr. Yilan ChangEpithelial cells LM Ql (Urine sed)RARENormalNONE SEEN /RAREMercy Health St. Elizabeth Youngstown HospitalComment on above:Performed By: #### UAMIC ####[facility] Cppytlkqsd[address] [place], [place] [address]Dr. Yilan ChangGlucose Ql (U)NegativeNormalNEGATIVEMercy Health St. Elizabeth Youngstown HospitalComment on above:Performed By: #### UAMIC ####[facility] Vkrcdfrzjv32[address] [place], [place] [address]Dr. Benitalan Abdul Hemoglobin Ql (U)MODERATEAbnormalNEGATIVEThe [facility] HospitalComment on above: Performed By: #### UAMIC ####[facility] Xgxtlmrcom[address] [place], [place] [address]Dr. Yilan ChangKetones Ql (U)TRACEAbnormalNEGATIVEThe [facility] HospitalComment on above:Performed By: #### UAMIC ####[facility] Gnkutikgmp[address] [place], [place] [address]Dr. Yilan ChangLEUKOCYTES TRACEAbnormalNEGATIVEThe [facility] HospitalComment on above:Performed By: #### UAMIC ####[facility] Bxxfdyeeap[address] [place], [place] [address]Dr. Yilan ChangMUCOUSNONE SEENNormalNONE SEENMercy Health Willard Hospital HospitalComment on above:Performed By: #### UAMIC ####[facility] Wrkblvbcvl45[address] [place], [place] [address]Dr. Grace ChangNitrite Ql (U)NegativeNormalNEGATIVE The [facility] HospitalComment on above:Performed By: #### UAMIC ####[facility] Useusshmcd32[address] [place], [place] [address]Dr. Yilee ann ChangpH (U)5.0 [pH]Normal5-9The [facility] HospitalComment on above:Performed By: #### UAMIC ####[facility] Pbykpccefh[address] [place], [place] [address]Dr. Grace EbfstBTZ6-1Pcvaxw0-7Gyb [facility] DaytonComment on above: Performed By: #### UAMIC ####[facility] Ykgxvjblni0960[address] [place], [place] [address]Dr. Yilan FrankoSPEC GRAVITY1.675Jkjrgq6.005-<=1.025The [facility] HospitalComment on above:Performed By: #### UAMIC ####[facility] Imsoiyprqt[address] [place], [place] [address]Dr. Yilan ChangUA PROTEINNegativeNormalNEGATIVE/ TRACEThe Fayetteville HospitalComment on above: Performed By: #### UAMIC ####[facility] Ljqmjzobzq77[address] [place], [place] [address]Dr. Benitalan ChangUrobilinogen Qn (U)0.2 {Ashley'U}/dL Normal0.2 - 1.0The [facility] Hospital DaytonComment on above:Performed By: #### UAMIC ####[facility] [address] [address]Dr. Yilan ChangWBC0-2AbnormalNONE SEENThe [facility] Hospital DaytonComment on above: Performed By: #### UAMIC ####[facility] Bjfahbapzx9[address] [place], [place] [address]Dr. Benitalan ChangCBC AUTO DIFFon 32-72-7402AUOX #0.0 103/ulNormal0.0-0.1The [facility] DaytonComcorewell health reed city hospital on above:Performed By: #### CBC ####[facility] Jaabvcxfmv[address] [place], [place] [address]Dr. Benitalee ann ChangBasophils/100 WBC (Bld)0.4 %Normal0.2-2.0The [facility] on above:Performed By: #### CBC ####[facility] Lauxhqhfgu[address] [place], [place] [address]Dr.Yilan ChangEO #0.1 103/ulNormal0.0-0.7The [facility] DaytonComcorewell health reed city hospital on above:Performed By: #### CBC ####[facility] Foczpyxjba[address] [place], [place] [address]Dr.Benitalee ann ChangEosinophils/100 WBC (Bld)1.3 %Normal0.9-7.0The [facility]cy Memorial Hospitalment on above:Performed By: #### CBC ####[facility] Aqcvczvfkp6[address] [place], [place] [address]Dr.Benitalan ChangErythrocyte distribution width (RBC) [Ratio]13.7 %Normal 11.0-15.0The [facility] on above:Performed By: #### CBC ####[facility] Niwrrvsjfb9035[address] [place], [place] [address]Dr. Benitalee ann ChangHematocrit (Bld) [Volume fraction]37.2 %Tqclnr14.0-48.0The [facility] DaytonComment on above:Performed By: #### CBC ####[facility] [address] [address]Dr.Grace ChangHemoglobin (Bld) [Mass/Vol]12.4 g/oIXzonzb35.0-16.0The [facility] DaytonComment on above: Performed By: #### CBC ####[facility] Rxffxcgcbx260[address] [place], [place] [address]Dr.Benitalee ann ChangIG #0.02 10e3/ulNormal0.00-0.03The [facility] DaytonComment on above:Performed By: #### CBC ####[facility] Bvtmwwtbhd[address] [place], [place] [address]Dr.Benitalee ann AbdulIG %0.4 %Normal 0.0-0.5The [facility] DaytonComment on above:Performed By: #### CBC ####[facility] Tgvkijcaxn965[address] [place], [place] [address]Dr.Grace AbdulLYMPH #0.8 103/ulCritically low1.2-3.8The [facility] DaytonComment on above:Performed By: #### CBC ####[facility] Bpocrlwrdm245[address] [place], [place] [address]Dr.Benitalee ann AbdulLymphocytes/100 WBC (Bld)13.9 %Critically low20.5-60.0 The [facility] DaytonComment on above:Performed By: #### CBC ####[facility] Rtvkogclgz78[address] [place], [place] [address]Dr.Grace AbdulMANUAL DIFF REQNONormalThe [facility] Hospital DaytonComment on above:Performed By: #### CBC ####[facility] Utrxvfbvyh440[address] [place], [place] [address]Dr. Grace AbdulMCH (RBC) [Entitic mass]30.5 rxFequur41.7-34.0[facility] Comment on above:Performed By: #### CBC ####[facility] Zdyggeueea74[address] [place], [place] [address]Dr.Grace AbdulMCHC (RBC) [Mass/Vol]33.3 g/dL Reumzh22.9-35.2The [facility]elyn HospitalComment on above:Performed By: #### CBC ####[facility] [address] [address]Dr. Grace AbdulMCV (RBC) [Entitic vol]91.4 vCMbodvk38.0-99.0The [facility] Comment on above:Performed By: #### CBC ####[facility] Donrhulzqd7938[address] [place], [place] [address]Dr.Grace AbdulMONO #0.7 103/ulNormal0.3-0.8 The [facility] HospitalComment on above:Performed By: #### CBC ####[facility] Eesvocofqk37[address] [place], [place] [address]Dr.Grace Abdul Monocytes/100 WBC (Bld)13.5 %Critically high1.7-12.0The [facility] HospitalComment on above:Performed By: #### CBC ####[facility] Obuljmmhrj876[address] [place], [place] [address]Dr.Grace AbdulNEUT #3.8 103/ulNormal1.4-6.5The [facility] HospitalComment on above:Performed By: #### CBC ####[facility] Utvlgiwyoj[address] [place], [place] [address]Dr.Benitalee ann FrankoNeutrophils/100 WBC (Bld)70.5 %Yvthed59.0-75.0The [facility] HospitalComment on above:Performed By: #### CBC ####[facility] Kvsnsqrugb014[address] [place], [place] [address]Dr.Benitalee ann AbdulPlatelet mean volume (Bld) [Entitic vol]9.0 fLCritically low 9.5-13.5The [facility] HospitalComment on above:Performed By: #### CBC ####[facility] Evkwtvbfvx8[address] [place], [place] [address]Dr. Grace AbdulPLT283 103/wvVvkmwx392-254Crm [facility] HospitalComment on above: Performed By: #### CBC ####[facility] Murgvmhqpb[address] [place], [place] [address]Dr.Grace AbdulRBC4.07 106/ulCritically low4.20-5.40The [facility] DaytonComment on above:Performed By: #### CBC ####[facility] [address] [place], [place] [address]OrKem AbdulWBC5.4 103/ul Normal4.0-11.0The [facility] DaytonComment on above:Performed By: #### CBC ####[facility] Z[address]lksugxq6[address] [place], [place] [address]RoLisette AbdulCT ABD/PELV W CONon 07-02-3135VB ABD/PELV W CONEXAM: CT ABD/PELV W CON [...] Electronically authenticated by: EMILY NAVARRETE Date: 2022-04-04 16:59NoOhioHealth [facility] URINE PROFILEon 71-04-2959Rlpgawonm Ql (U)NegativeNormal NEGATIVEMercy Health St. Elizabeth Youngstown HospitalComment on above:Performed By: #### ROBERT KIRKLAND ####[facility] [address] [id number]. Yilan ChangClarity (U)CLEARNormalCLEARMercy Health St. Elizabeth Youngstown HospitalComment on above: Performed By: #### ROBERT KIRKLAND ####[facility] [address] [address]Dr. Yilan ChangColor (U)LT. YELLOWNormalYELLOWMercy Health St. Elizabeth Youngstown HospitalComment on above:Performed By: #### ROBERT KIRKLAND ####[facility] Anyvpdzbpr[address] [place], [place] [id number]. Yilan ChangERUAHD A micrscopic examination will be performed if indicated.NormalThe [facility] Hospital DaytonComment on above:Performed By: #### ROBERT KIRKLAND ####[facility] Xcumskcggp[address] [place], [place] [address]Dr. Yilan ChangGlucose Ql (U) NegativeNormalNEGATIVEMercy Health St. Elizabeth Youngstown HospitalComment on above:Performed By: #### ROBERT KIRKLAND ####[facility] Lrqkojroja[address] [place], [place] [address]Dr. Yilan ChangHemoglobin Ql (U)SMALLAbnormalNEGATIVEMercy Health St. [facility] Comment on above:Performed By: #### ROBERT KIRKLAND ####[facility] Eczahziggl[address] [place], [place] [address]Dr. Yilan ChangKetones Ql (U) NegativeNormalNEGATIVEMercy Health St. Elizabeth Youngstown HospitalComment on above:Performed By: #### ROBERT KIRKLAND ####[facility] Zuonowwske[address] [place], [place] [address]Dr. Yilan ChangLEUKOCYTESTRACEAbnormalNEGATIVEMercy Health St. Elizabeth Youngstown HospitalComment on above:Performed By: #### ROBERT KIRKLAND ####[facility] [address]ax[address] [id number]. Grace AbdulNitrite Ql (U)NegativeNormal NEGATIVEThe [facility] Hospital DaytonComment on above:Performed By: #### ROBERT KIRKLAND ####[facility] [address]iewj[address] [id number]. Grace ChangpH (U)7.5 [pH]Normal5-9The [facility] DaytonComment on above: Performed By: #### ROBERT KIRKLAND ####[facility] Y[address]ym[address] [place], [place]Dr. Grace AbdulSPEC GRAVITY1.932Bcwoou7.005-<=1.025The [facility] DaytonComment on above:Performed By: #### ROBERT KIRKLAND ####[facility] I[address]aekpmfm[address] [place], [place]Dr. Grace AbdulUA PROTEINNegativeNormalNEGATIVE/ TRACEThe [facility] HospitalComment on above: Performed By: #### ROBERT KIRKLAND ####[facility] Bjvzzzstcu64[address] [place], [place]Dr. Grace AbdulUR MICRO INDINDICATEDNormalThe [facility] Hospital DaytonComment on above:Performed By: #### ROBERT KIRKLAND ####[facility] Pqczywoxcr46[address] [place], [place]Dr. Grace AbdulUrobilinogen Qn (U)0.2 {Ashley'U}/dLNormal0.2 - 1.0The [facility] DaytonComment on above: Performed By: #### GINA KIRKLANDRO ####[facility] O[address]omedmzow[address] [place], [place]Dr. Grace AbdulLIPASEon 80-05-5181Hiadnd [Catalytic activity/Vol]115.0 U/ELcvcpv54.0-393.0The [facility] DaytonComment on above: Performed By: #### CVDTBH #### [facility] [address] [place], [place] [address] Dr. Grace Reno 14(COMP METB)on 32-04-8302Viwohah [Mass/Vol]3.6 g/dLNormal 3.4-5.0The [facility] DaytonComment on above:Performed By: #### CVDTBH #### [facility] [address] [place] [address] Dr. Grace AbdulAlbumin/Globulin [Mass ratio]1.1 {ratio}NormalThe [facility] Hospital DaytonComment on above:Performed By: #### CVDTBH #### [facility] [address] [place] [address] Dr. Grace CalderonP [Catalytic activity/Vol]74 U/BQdfyvy44-984Qrq [facility] DaytonComment on above:Performed By: #### CVDTBH #### [facility] [address] [place] [address] Dr. Grace CalderonT [Catalytic activity/Vol]23 U/ZAgrcwp76-92Vpn [facility] DaytonComment on above:Performed By: #### CVDTBH #### [facility] [address] [place] [address] Dr. Grace Kauffmanon gap [Moles/Vol]12.1 mmol/LNormalThe [facility] Comment on above:Performed By: #### CVDTBH #### [facility] [address] [place] [address] Dr. Grace AbdulAST [Catalytic activity/Vol]21 U/CDhknhg66-78Kcg [facility] DaytonComment on above:Performed By: #### CVDTBH #### [facility] [address] [place] [address] Dr. Grace AbdulBilirubin [Mass/Vol]0.2 mg/dLNormal0.2-1.0The [facility] Comment on above:Performed By: #### CVDTBH #### [facility] [address] [place] [address] Dr. Grace AbdulCalcium [Mass/Vol]9.3 mg/dLNormal8.5-10.1The [facility] Comment on above:Performed By: #### CVDTBH #### [facility] [address] [place] [address] Dr. Grace AbdulChloride [Moles/Vol]99 mmol/HIueuxt42-636[facility] Comment on above:Performed By: #### CVDTBH #### [facility] [address] [place] [address] Dr. Grace AbdulCO2 [Moles/Vol]31.2 mmol/UNveglu63.0-32.0The [facility] Comment on above:Performed By: #### CVDTBH #### [facility] [address] [place] [address] Dr. Grace AbdulCreatinine [Mass/Vol]1.22 mg/dLCritically high0.55-1.02The [facility] DaytonComment on above:Performed By: #### CVDTBH #### [facility] [address] [place] [address] Dr. Edwards ChangEGFR-AF XHSENELP82 mL/min/1.99b4Vsywaiuzbs low>=60The [facility] Hospital DaytonComment on above:Performed By: #### CVDTBH #### [facility] [address] [place] [address] Dr. Grace RichardGFR-NON AF WYKOGZLE91 mL/min/1.17u5Qmfqdnsqmk low>=60The [facility] DaytonComment on above:Performed By: #### CVDTBH #### [facility] [address] [place] [address] Dr. Grace AbdulGlobulin (S) [Mass/Vol]3.3 g/dLNormalThe [facility] DaytonComment on above:Performed By: #### CVDTBH #### [facility] [address] [place] [address] Dr. Grace AbdulGlucose [Mass/Vol]115 mg/dLCritically bdnd09-293Zhx [facility] DaytonComment on above:Performed By: #### CVDTBH #### [facility] [address] [place] [address] Dr. Grace AbdulPotassium [Moles/Vol]3.3 mmol/LCritically low3.5-5.1The [facility] DaytonComment on above:Performed By: #### CVDTBH #### [facility] [address] [address] [address] Grace AbdulProtein [Mass/Vol]6.9 g/dLNormal6.4-8.2The [facility] Comment on above:Performed By: #### CVDTBH #### [facility] [address] [address] [address] Grace AbdulSodium [Moles/Vol]139 mmol/CFmahbv198-616Agp [facility] Comment on above:Performed By: #### CVDTBH #### [facility] [address] [address] [address] Grace Bernal nitrogen [Mass/Vol]23.0 mg/dLCritically high7.0-18.0The [facility] DaytonComment on above:Performed By: #### CVDTBH #### [facility] [address] [address] [address] Grace Bernal nitrogen/Creatinine [Mass ratio]18.9 mg/mgNormalThe [facility] DaytonComment on above:Performed By: #### CVDTBH #### [facility] [address] [address] [address] Grace Marcos MICROSCOPIC ONLYon 06-82-1429FFOGICKRZUJX SEENNormalNONE SEENThe [facility] Hospital DaytonComment on above:Performed By: #### MARITA UMICRO ####[facility] [address] [place], [place]Dr. Grace Dunncteria identified Cx Nom (U)NOT INDICATEDNormPeoples HospitalComment on above:Performed By: #### MARITA UMICRO ####[facility] Y[address]urob[address] [place], [place]Dr. Grace AbdulCASTNONE SEEN NormalNONE SEENMercy Health St. Elizabeth Youngstown HospitalComment on above:Performed By: #### MARITA UMICRO ####[facility] S[address]cgspog[address] [place], [place] [address]Dr. Grace Pinedoystals LM Nom (Urine sed)NONE SEENNormalNONE SEENThe [facility] DaytonComment on above:Performed By: #### ERUR, UMICRO ####[facility] [address] [place] [id number]. Grace Abdul Epithelial cells LM Ql (Urine sed)RARENormalNONE SEEN /RAREThe [facility] Comment on above:Performed By: #### GINA KIRKLANDRO ####[facility] [address] [id number]. Grace ChangMUCOUSNONE SEEN NormalNONE SEENThe [facility] DaytonComment on above:Performed By: #### MARITA UMICRO ####[facility] [address]mf[address] [address]Dr. Grace AbdulLukjhZCP4-2Ittfks3-2Zqs [facility] DaytonComment on above: Performed By: #### GODWIN KIRKLANDICRO ####[facility] [address]uxx[address] [address]Dr. Graec AbdulWBC0-2AbnormalNONE SEENThe [facility] DaytonComment on above:Performed By: #### MARITA ICRO ####[facility] [address]xmvxw[address] [place], [place] [address]Dr. Grace AbdulBNPon 49-67-4623Mtbctnckfmk peptide B (Bld) [Mass/Vol]665.0 pg/mLNormal<=1,800.0The [facility] Hospital DaytonComment on above:Performed By: #### BMP #### [facility] [address] [address] [address] Grace Casey AUTO DIFFon 53-01-1208QSRZ #0.0 103/ulNormal0.0-0.1The [facility] DaytonComment on above:Performed By: #### CBC ####[facility] [address]fg[address] [place], [place] [address]Dr.Grace AbdulBasophils/100 WBC (Bld)0.5 %Normal0.2-2.0The [facility] DaytonComment on above:Performed By: #### CBC ####[facility] [address]vfpzfws[address] [place], [place] [address]Dr.Grace ChangEO #0.1 103/ulNormal0.0-0.7The [facility] HospitalComment on above:Performed By: #### CBC ####[facility] [address]xcbzrennf[address] [place], [place] [address]Dr.Grace ChangEosinophils/100 WBC (Bld)1.9 %Normal 0.9-7.0The [facility] HospitalComment on above:Performed By: #### CBC ####[facility] L[address]aasgqig[address] [place], [place] [address]Dr.Benitalee ann Abdul Erythrocyte distribution width (RBC) [Ratio]13.4 %Dxwfmw12.0-15.0The [facility] HospitalComment on above:Performed By: #### CBC ####[facility] [address]fprwkcyf[address] [place], [place] [address]Dr.Benitalee ann ChangHematocrit (Bld) [Volume fraction]36.2 %Ijwvxt18.0-48.0The [facility] DaytonComment on above:Performed By: #### CBC ####[facility] Xgmvusubwn[address] [place], [place] [address]Dr.Grace ChangHemoglobin (Bld) [Mass/Vol]11.9 g/dL Critically low12.0-16.0The [facility] HospitalComment on above:Performed By: #### CBC ####[facility] Tygebublyt[address] [place], [place] [address]Dr. Grace ChangIG #0.01 10e3/ulNormal0.00-0.03The [facility] HospitalComment on above: Performed By: #### CBC ####[facility] [address]cykwfyqrq[address] [place], [place] [address]Dr.Grace ChangIG %0.2 %Normal0.0-0.5The [facility] DaytonComment on above:Performed By: #### CBC ####[facility] Zufcsubssp[address] [place], [place] [address]Dr.Grace ChangLYMPH #0.5 103/ulCritically low1.2-3.8The [facility] DaytonComment on above:Performed By: #### CBC ####[facility] [address]krzy[address] [place] [address]Dr.Grace AbdulLymphocytes/100 WBC (Bld)11.5 %Critically low20.5-60.0The [facility] DaytonComment on above:Performed By: #### CBC ####[facility] [address]prvvg[address] [place] [address]Dr.Grace AbdulMANUAL DIFF REQ NONormalThe [facility] Hospital DaytonComment on above:Performed By: #### CBC ####[facility] Goprucscsf[address] [place], [place] [address]Dr. Grace AbdulH (RBC) [Entitic mass]31.6 slTvzdwm72.7-34.0The [facility] Comment on above:Performed By: #### CBC ####[facility] Xbgtbvktef[address] [place], [place] [address]Dr.Grace AbdulHC (RBC) [Mass/Vol]32.9 g/dL Xkumnn65.9-35.2The [facility] DaytonComment on above:Performed By: #### CBC ####[facility] [address]rvrhott[address] [place], [place] [address]Dr. Grace AbdulV (RBC) [Entitic vol]96.0 mJBzlmpi28.0-99.0The [facility] Comment on above:Performed By: #### CBC ####[facility] [address]oeufrrig[address] [place], [place] [address]Dr.Grace AbdulMONO #0.6 103/ulNormal0.3-0.8 The [facility] Hospital DaytonComment on above:Performed By: #### CBC ####[facility] Yqybofvjdk[address] [place], [place] [address]Dr.Grace Abdul Monocytes/100 WBC (Bld)14.4 %Critically high1.7-12.0The [facility] DaytonComment on above:Performed By: #### CBC ####[facility] [address]zjbcgp[address] [place], [place] [address]Dr.Grace AbdulNEUT #3.0 103/ulNormal1.4-6.5The [facility] DaytonComment on above:Performed By: #### CBC ####[facility] [address] [place] [address]Dr.Grace AbdulNeutrophils/100 WBC (Bld)71.5 %Rxoyjo12.0-75.0The Access Hospital DaytonComment on above:Performed By: #### CBC ####[facility] [address] [address]Dr.Grace AbdulPlatelet mean volume (Bld) [Entitic vol]9.2 fLCritically low 9.5-13.5The [facility] Hospital DaytonComment on above:Performed By: #### CBC ####[facility] [address] [address]Dr. Grace KvicsSHG965 103/ohQbqlax219-062Lfm Access Hospital DaytonComment on above: Performed By: #### CBC ####[facility] [address] [address]Dr.Grace AbdulRBC3.77 106/ulCritically low4.20-5.40The [facility] Hospital DaytonComment on above:Performed By: #### CBC ####[facility] [address] [address]Dr.Grace AbdulWBC4.2 103/ul Normal4.0-11.0The [facility] Hospital DaytonComment on above:Performed By: #### CBC ####[facility] [address] [address]Dr. Grace AbdulFREE THYROXINE INDEX T7on 76-95-2909HHO9.22Wqcbqy1.30-4.50The [facility] Hospital DaytonComment on above:Performed By: #### BMP #### [facility] [address] [address] [address] Grace AbdulT3U35.0 %Xndxcg09.0-39.0The [facility] Hospital DaytonComment on above: Performed By: #### BMP #### [facility] [address] [address] [address] Grace AbdulT4 [Mass/Vol]7.50 ug/dLNormal4.80-13.90The [facility] Comment on above:Performed By: #### BMP #### [facility] [address] [address] [address] Grace FairCOHEMOGLOBIN A1Con 26-39-8645EGC RECOMMENDATIONSEE BELOWNormal The [facility] DaytonComcorewell health [facility] on above:Result Comment: ADA RECOMMENDED LIMIT 4.0 - 6.0 ADA THERAPEUTIC TARGET < 7.0 ACTION SUGGESTED > 7.0Performed By: #### A1C ####[facility] [address] [address]Dr. Grace AbdulGlucose [Mass/Vol]111 mg/dLNormPeoples HospitalComment on above:Performed By: #### A1C ####[facility] [address] [address]Dr.Yilan AbdulHbA1c (Bld) [Mass fraction]5.5 %Normal 4.5-6.2The [facility] Hospital DaytonComment on above:Performed By: #### A1C ####[facility] [address] [place], [place] [address]Dr.Yilan AbdulIRONon 77-15-7558Xytp [Mass/Vol]50.0 ug/yNDseqfs72.0-170.0The [facility] Hospital DaytonComment on above:Performed By: #### IRON, VITAD, VITB12 ####[facility] [address] [address]DrLisette AbdulLIPID PROFILE on 50-78-6207FWUY-HDL RATIO NORMSEE BELOWAvita Health SystemComment on above:Result Comment: 3.3 - 4.4 LOW RISK 4.4 - 7.1 AVERAGE RISK 7.1 - 11.0 MODERATE RISK >11.0 HIGH RISKPerformed By: #### BMP #### [facility] [address] [address] [address] Grace AbdulCholesterol [Mass/Vol]182 mg/dLNormal<=200The [facility] Comment on above:Performed By: #### BMP #### [facility] [address] [address] [address] Grace Greeresterol in HDL [Mass/Vol]60 mg/tHDyilfa04-95Edw [facility] Hospital DaytonComment on above:Performed By: #### BMP #### [facility] [address] [address] [address] Grace AbdulCholesterol in LDL [Mass/Vol]101.2 mg/dLAvita Health SystemComment on above:Performed By: #### BMP #### [facility] [address] [address] [address] Grace AbdulCholesterol.total/Cholesterol in HDL [Mass ratio]3.0 {ratio} NormalThe Access Hospital DaytonComment on above:Performed By: #### BMP #### [facility] [address] [place] [address] Dr. Grace Lopez NORMAL> or = 60 mg/dl - LOW CARDIOVASCULAR RISK <40 mg/dl - HIGH CARDIOVASCULAR RISKAvita Health SystemComment on above:Performed By: #### BMP #### [facility] [address] [place] [address] Dr. Grace La CALC NORMALSEE BELOWAvita Health SystemComment on above:Result Comment: <100 mg/dl OPTIMAL 100 - 129 mg/dl NEAR OR ABOVE OPTIMAL 130 - 159 mg/dl BORDERLINE HIGH 160 - 189 mg/dl HIGH >190 mg/dl VERY HIGH Performed By: #### BMP #### [facility] [address] [place] [address] Dr. Grace AbdulTriglyceride [Mass/Vol]104 mg/dLNormal<=150The [facility] Comment on above:Performed By: #### BMP #### [facility] [address] [place] [address] Dr. Grace StarksLDL CALC20.8 mg/dLNoAdena Pike Medical CenterComment on above: Performed By: #### BMP #### [facility] [address] [place] [address] Dr. Grace AbdulPROF 14(COMP METB)on 55-90-4879Keidyqi [Mass/Vol]3.5 g/dLNormal 3.4-5.0The [facility] Hospital DaytonComment on above:Performed By: #### BMP #### [facility] [address] [place] [address] Dr. Grace AbdulAlbumin/Globulin [Mass ratio]1.0 {ratio}NormalThe Access Hospital DaytonComment on above:Performed By: #### BMP #### [facility] [address] [address] [address] Grace CalderonP [Catalytic activity/Vol]55 U/JCfgrym86-564Kli [facility] DaytonComment on above:Performed By: #### BMP #### [facility] [address] [place] [address] Dr. rGace CalderonT [Catalytic activity/Vol]21 U/YGqdfiy37-35Jly [facility] DaytonComment on above:Performed By: #### BMP #### [facility] [address] [place] [address] Dr. Grace AbdulAnion gap [Moles/Vol]9.3 mmol/LNormalThe [facility] Hospital DaytonComment on above:Performed By: #### BMP #### [facility] [address] [place] [address] Dr. Grace AbdulAST [Catalytic activity/Vol]21 U/XHbdtmn50-44Jsf [facility] DaytonComment on above:Performed By: #### BMP #### [facility] [address] [place] [address] Dr. Grace AbdulBilirubin [Mass/Vol]0.3 mg/dLNormal0.2-1.0The [facility] Comment on above:Performed By: #### BMP #### [facility] [address] [place] [address] Dr. Grace AbdulCalcium [Mass/Vol]9.5 mg/dLNormal8.5-10.1The [facility] Comment on above:Performed By: #### BMP #### [facility] [address] [place] [address] Dr. Grace AbdulChloride [Moles/Vol]102 mmol/LDxefbh31-910Pir [facility] Comment on above:Performed By: #### BMP #### [facility] [address] [address] [address] Grace AbdulCO2 [Moles/Vol]28.5 mmol/UHdxioc68.0-32.0The [facility] Comment on above:Performed By: #### BMP #### [facility] [address] [place] [address] Dr. Grace AbdulCreatinine [Mass/Vol]1.04 mg/dLCritically high0.55-1.02The [facility] Hospital DaytonComment on above:Performed By: #### BMP #### [facility] [address] [place] [address] Dr. Edwards ChangEGFR-AF PUERTO RICAN>60Normal>=60The [facility] Hospital DaytonComment on above:Performed By: #### BMP #### [facility] [address] [place] [address] Dr. Grace RichardGFR-NON AF ZHDBNJEX82 mL/min/1.32e0Mpiaxtwyjk low>=60The [facility] Hospital DaytonComment on above:Performed By: #### BMP #### [facility] [address] [place] [address] Dr. Grace AbdulGlobulin (S) [Mass/Vol]3.5 g/dLNormalThe [facility] Hospital DaytonComment on above:Performed By: #### BMP #### [facility] [address] [place] [address] Dr. Grace AbdulGlucose [Mass/Vol]102 mg/gFOnsmuw80-223MncMercy Health St[facility] Comment on above:Performed By: #### BMP #### [facility] [address] [place] [address] Dr. Grace AbdulPotassium [Moles/Vol]3.8 mmol/LNormal3.5-5.1The [facility] Comment on above:Performed By: #### BMP #### [facility] [address] [place] [address] Dr. Grace AbdulProtein [Mass/Vol]7.0 g/dLNormal6.4-8.2The [facility] Comment on above:Performed By: #### BMP #### [facility] [address] [place] [address] Dr. Grace AbdulSodium [Moles/Vol]136 mmol/KGlmyzb611-066Owl [facility] Comment on above:Performed By: #### BMP #### [facility] [address] [address] [address] Grace AbdulUrea nitrogen [Mass/Vol]20.0 mg/dLCritically high7.0-18.0The [facility] Hospital DaytonComment on above:Performed By: #### BMP #### [facility] [address] [address] [address] Grace AbdulUrea nitrogen/Creatinine [Mass ratio]19.2 mg/mgNoAdena Pike Medical CenterComment on above:Performed By: #### BMP #### [facility] [address] [place] [address] Dr. Grace AbdulTSHoelida 20-57-5352EOW2.247 uIU/mLCritically low0.358-3.740The [facility] Hospital DaytonComment on above:Performed By: #### BMP #### [facility] [address] [place] [address] Dr. Grace AbdulVITAMIN B12on 13-43-5068Xypnpvpsb (Vitamin B12) [Mass/Vol]762.0 pg/nCBoivbn136.0-986.0The [facility] Hospital DaytonComment on above:Performed By: #### IRON, VITAD, VITB12 ####[facility] [address] [place], [place] [address]Dr. Grace AbdulVITAMIN D 25 OHon 74-52-3915IRX D 25-OH 54.9 ng/mLNormalThe Access Hospital DaytonComment on above:Performed By: #### IRON, VITAD, VITB12 ####[facility] [address] [address]Dr. Grace AbdulVIT D RANGESSEE BELOWAvita Health SystemComment on above:Result Comment: <20 ng/mL Vit D deficient 20 - <30 ng/mL Vit D insufficient 30 - 100 ng/mL Vit D sufficient >100 ng/mL Potential Toxicity Performed By: #### IRON, VITAD, VITB12 ####[facility] [address] [id number] Bocanegra MAMM SCREEN 3D CLEMENCIA CADon 22-45-4569EL MAMM SCREEN 3D CLEMENCIA CADPatient: ALEXA DELGADO Exam Date: 11/25/2021 : 1940 Gender:F Ordering : DR GALINA PALMER . Admission #: [id number] Family : DR ARMANDO THAYER Order #: [id number] CLICK HERE TO VIEW EXAM RADIOLOGY REPORT [...] Treatments None Family Cancers None LOCATION: [facility] BREAST COMPOSITION: Scattered areas fibroglandular density. FINDINGS: [...] by: Hermes Suarez MD on 11/25/2021 at 14:14[facility] CULTURE URINEon 40-84-4199SHSPZSQ URINECulture Observations: LIGHT GROWTH OF MIXED GENITAL ALANIS. NO POTENTIAL PATHOGENS SEEN.NormalThe Access Hospital DaytonComment on above:Performed By: #### URCX ####[facility] [address] [id number]. Grace Crow PANEL (PCR) on 29-72-9350Fdxkensecv F 40/41Not detectedNormalNOT DETECTEDMercy Health St. Elizabeth Youngstown HospitalComment on above:Performed By: #### CBC #### [facility] [address] [address] [address] Grace AbdulAstrovirusNot detectedNormalNOT DETECTEDThe [facility] Comment on above:Performed By: #### CBC #### [facility] [address] [address] [address] Grace Meza. Diff toxin A/BNot detectedNormalNOT DETECTEDThe [facility] Hospital DaytonComment on above:Performed By: #### CBC #### [facility] [address] [address] [address] Grace BarnespylobacterNot detectedNormalNOT DETECTEDThe [facility] Comment on above:Performed By: #### CBC #### [facility] [address] [address] [address] Grace AbdulCryptosporidiumNot detectedNormalNOT DETECTEDThe [facility] DaytonComment on above:Performed By: #### CBC #### [facility] [address] [address] [address] Grace Whitney. CayetanensisNot detectedNormalNOT DETECTEDThe [facility] DaytonComment on above:Performed By: #### CBC #### [facility] [address] [address] [address] Grace Lizarraga Coli M033Rzj ApplicableNormalNot ApplicableThe [facility] DaytonComcorewell health re[facility] city hospital on above:Performed By: #### CBC #### [facility] [address] [address] [address] Grace Lizarraga histolyticaNot detectedNormalNOT DETECTEDThe [facility] Comment on above:Performed By: #### CBC #### [facility] [address] [address] [address] Grace RichardAECNot detectedNormalNOT DETECTEDThe [facility] DaytonComment on above:Performed By: #### CBC #### [facility] [address] [address] [address] Grace RichardIECNot detectedNormalNOT DETECTEDThe [facility] DaytonComcorewell health reed city hospital on above:Performed By: #### CBC #### [facility] [address] [address] [address] Grace RichardPECNot detectedNormalNOT DETECTEDThe [facility] DaytonComment on above:Performed By: #### CBC #### [facility] [address] [address] [address] Grace Groves detectedNormalNOT DETECTEDMercy Health St. Elizabeth Youngstown HospitalComment on above:Performed By: #### CBC #### [facility] [address] [address] [address] Grace Huang LambliaNomerritt detectedNormalNOT DETECTEDMercy Health St. [facility] Comment on above:Performed By: #### CBC #### [facility] [address] [address] [address] Grace Reid CONTROLSHolzer Health SystemComment on above:Performed By: #### CBC #### [facility] [address] [address] [address] Grace DIETRICH HEADERGI [facility] Comment on above:Performed By: #### CBC #### [facility] [address] [address] [address] Grace Tena ECOLIGI PANEL DIARRHEAGENIC E.COLI / SHIGELLAAvita Health SystemComment on above:Performed By: #### CBC #### [facility] [address] [address] [address] Grace Tena INFOSEMount Carmel Health SystemComcorewell health re[facility] city hospital on above: Result Comment: EAEC- Enteroaggregative E. Coli EPEC- Enteropathogenic E. Coli ETEC- Enterotoxigenic E. Coli lt/st STEC- Shigella-like toxin-producing E. Coli stx1/stx2 EIEC- Shigella/Enteroinvasive E. ColiPerformed By: #### CBC #### [facility] [address] [address] [address] Grace Tena PARASITESGI PANEL [facility] Comment on above:Performed By: #### CBC #### [facility] [address] [address] [address] Grace Tena VIRUSGI PANEL [facility] HospitalComment on above:Performed By: #### CBC #### [facility] [address] [address] [address] Grace Pinarovirus GI/GIINot detectedNormalNOT DETECTEDThe [facility] DaytonComment on above:Performed By: #### CBC #### [facility] [address] [address] [address] Grace Amin. ShigelloidesNot detectedNormalNOT DETECTEDThe [facility] Hospital DaytonComment on above:Performed By: #### CBC #### [facility] [address] [address] [address] Grace AbdulRotavirus ANot detectedNormalNOT DETECTEDThe [facility] Comment on above:Performed By: #### CBC #### [facility] [address] [address] [address] Grace AbdulSalmonellaNot detectedNormalNOT DETECTEDThe [facility] Comment on above:Performed By: #### CBC #### [facility] [address] [address] [address] Grace AbdulSapovirusNot detectedNormalNOT DETECTEDThe [facility] Comment on above:Performed By: #### CBC #### [facility] [address] [address] [address] Grace AbdulSTECNot detectedNormalNOT DETECTEDThe [facility] DaytonComcorewell health reed city hospital on above:Performed By: #### CBC #### [facility] [address] [address] [address] Grace BenzbrioNot detectedNormalNOT DETECTEDThe [facility] DaytonComment on above:Performed By: #### CBC #### [facility] [address] [address] [address] Grace Rappio CholeraNot detectedNormalNOT DETECTEDMercy Health St. [facility] Comment on above:Performed By: #### CBC #### [facility] [address] [address] [address] Grace Montoya. EnterocoliticaNot detectedNormalNOT DETECTEDThe [facility] DaytonComment on above:Performed By: #### CBC #### [facility] [address] [address] [address] Grace Cespedes RANDOM W/MICROSCOPICon 23-14-8847VXGAVCWQRLCA SEENNormalNONE SEENMercy Health St. Elizabeth Youngstown HospitalComment on above:Performed By: #### UAMIC ####[facility] [address] [place], [place] [address]Dr. Grace Abdul Bilirubin Ql (U)NegativeNormalNEGATIVEMercy Health St. Elizabeth Youngstown HospitalComment on above: Performed By: #### UAMIC ####[facility] [address] [place], [place] [address]Dr. Grace ChangCASTNONE SEENNormalNONE SEENMercy Health St. Elizabeth Youngstown HospitalComment on above:Performed By: #### UAMIC ####[facility] [address]yl[address] [place], [place] [address]Dr. Grace AbdulClarity (U) CLEARNormalCLEARMercy Health St. Elizabeth Youngstown HospitalComment on above:Performed By: #### UAMIC ####[facility] [address] [place], [place] [address]Dr. Grace AbdulColor (U)LT. YELLOWNormalYELLOWMercy Health St. Elizabeth Youngstown HospitalComment on above: Performed By: #### UAMIC ####[facility] [address] [place], [place] [address]Dr. Grace AbdulCrystals LM Nom (Urine sed)NONE SEEN NormalNONE SEENMercy Health St. Elizabeth [facility] HospitalComcorewell health re[facility] city hospital on above:Performed By: #### UAMIC ####[facility] [address] [place], [place] [address]Dr. Grace ChangEpithelial cells LM Ql (Urine sed)FEWAbnormalNONE SEEN /RAREThe [facility] Hospital DaytonComment on above:Performed By: #### UAMIC ####[facility] [address] [place], [place] [address]Dr. Grace AbdulGlucose Ql (U)NegativeNormalNEGATIVEMercy Health St. Elizabeth Youngstown HospitalComment on above:Performed By: #### UAMIC ####[facility] [address] [place], [place] [address]Dr. Grace AbdulHemoglobin Ql (U)TRACE-INTACTAbnormalNEGATIVEMercy Health St. Elizabeth Young[facility] HospitalComment on above:Performed By: #### UAMIC ####[facility] [address] [address]Dr. Yilan ChangKetones Ql (U) NegativeNormalNEGATIVEThe [facility] HospitalComment on above:Performed By: #### UAMIC ####[facility] [address] [place], [place] [address]Dr. Yilan ChangLEUKOCYTESNegativeNormalNEGATIVEThe [facility] HospitalComment on above:Performed By: #### UAMIC ####[facility] [address] [place], [place] [address]Dr. Yilan ChangMUCOUSNONE SEENNormalNONE SEENThe [facility] HospitalComment on above:Performed By: #### UAMIC ####[facility] [address] [place], [place] [address]Dr. Yilan ChangNitrite Ql (U)NegativeNormalNEGATIVEThe [facility] HospitalComment on above:Performed By: #### UAMIC ####[facility] [address] [place], [place] [address]Dr. Yilan ChangpH (U)7.5 [pH]Normal5-9The [facility] DaytonComment on above:Performed By: #### UAMIC ####[facility] [address] [place], [place] [address]Dr. Yilan FessyGNA8-2Fweces8-1Xee [facility] Comment on above:Performed By: #### UAMIC ####[facility] [address] [place], [place] [address]Dr. Yilan ChangSPEC GRAVITY1.010Normal 1.005-<=1.025The [facility] DaytonComment on above:Performed By: #### UAMIC ####[facility] [address] [place], [place] [address]Dr. Yilan ChangUA PROTEINNegativeNormalNEGATIVE/ TRACEThe [facility] HospitalComment on above:Performed By: #### UAMIC ####[facility] [address] [place], [place] [address]Dr. Yilan ChangUrobilinogen Qn (U)0.2 {Ashley'U}/dL Normal0.2 - 1.0The [facility] DaytonComment on above:Performed By: #### UAMIC ####[facility] [address] [address]Dr. Grace AbdulWBCNONE SEENNormalNONE SEENThe [facility] Hospital DaytonComment on above: Performed By: #### UAMIC ####[facility] [address] [address]Dr. Grace MoranC AUTO DIFFon 66-42-4802VYCP #0.0 103/ulNormal0.0-0.1The [facility] DaytonComment on above:Performed By: #### CBC #### [facility] [address] [place] [address] Dr. Grace AbdulBasophils/100 WBC (Bld)0.4 %Normal0.2-2.0[facility] Comment on above:Performed By: #### CBC #### [facility] [address] [address] [address] Grace Blunt #0.1 103/ulNormal0.0-0.7The [facility] DaytonComment on above: Performed By: #### CBC #### [facility] [address] [place] [address] Dr. Grace Richardosinophils/100 WBC (Bld)1.5 %Normal0.9-7.0[facility] Comment on above:Performed By: #### CBC #### [facility] [address] [address] [address] Grace Richardrythrocyte distribution width (RBC) [Ratio]13.2 %Irolpt11.0-15.0 The [facility] DaytonComment on above:Performed By: #### CBC #### [facility] [address] [place] [address] Dr. Grace AbdulHematocrit (Bld) [Volume fraction]31.9 %Critically low36.0-48.0 The [facility] DaytonComment on above:Performed By: #### CBC #### [facility] [address] [address] [address] Grace AbdulHemoglobin (Bld) [Mass/Vol]10.5 g/dLCritically low12.0-16.0The [facility] DaytonComment on above:Performed By: #### CBC #### [facility] [address] [place] [address] Dr. Grace Son #0.01 10e3/ulNormal0.00-0.03The [facility] DaytonComment on above:Performed By: #### CBC #### [facility] [address] [place] [address] Dr. Grace Son %0.2 %Normal0.0-0.5The [facility] DaytonComment on above: Performed By: #### CBC #### [facility] [address] [place] [address] Dr. Grace Hamilton #0.7 103/ulCritically low1.2-3.8[facility] Comment on above:Performed By: #### CBC #### [facility] [address] [place] [address] Dr. Grace Willishocytes/100 WBC (Bld)14.8 %Critically low20.5-60.0The [facility] DaytonComment on above:Performed By: #### CBC #### [facility] [address] [place] [address] Dr. Grace FloresUAL DIFF REQNONormalThe [facility] Hospital DaytonComment on above: Performed By: #### CBC #### [facility] [address] [place] [address] Dr. Grcae Perdomo (RBC) [Entitic mass]31.4 akVtfdqr32.7-34.0The [facility] DaytonComment on above:Performed By: #### CBC #### [facility] [address] [place] [address] Dr. Grace Perdomo (RBC) [Mass/Vol]32.9 g/rBHtsblt57.9-35.2The [facility] DaytonComment on above:Performed By: #### CBC #### [facility] [address] [address] [address] Grace PerdomoV (RBC) [Entitic vol]95.5 wHTtkqym87.0-99.0The [facility] on above:Performed By: #### CBC #### [facility] [address] [place] [address] Dr. Grace Barrios #0.6 103/ulNormal0.3-0.8The [facility] DaytonComment on above:Performed By: #### CBC #### [facility] [address] [place] [address] Dr. Grace Riderocytes/100 WBC (Bld)13.4 %Critically high1.7-12.0The [facility] on above:Performed By: #### CBC #### [facility] [address] [place] [address] Dr. Grace Brar #3.3 103/ulNormal1.4-6.5The [facility] on above:Performed By: #### CBC #### [facility] [address] [place] [address] Dr. Grace Solitarioutrophils/100 WBC (Bld)69.7 %Slwkgs43.0-75.0The [facility] on above:Performed By: #### CBC #### [facility] [address] [place] [address] Dr. Grace Stokeslet mean volume (Bld) [Entitic vol]9.1 fLCritically low 9.5-13.5The [facility] on above:Performed By: #### CBC #### [facility] [address] [place] [address] Dr. Grace AbdulPLT335 103/rxAwaqoz298-682Huc [facility] on above: Performed By: #### CBC #### [facility] [address] [place] [address] Dr. Grace AbdulRBC3.34 106/ulCritically low4.20-5.40The [facility] on above:Performed By: #### CBC #### [facility] [address] [address] [address] Grace AbdulWBC4.8 103/ulNormal4.0-11.0The [facility] DaytonComment on above: Performed By: #### CBC #### [facility] [address] [address] [address] Grace Michelle THYROXINE INDEX T7on 29-11-3966CMZ9.15Critically low 1.30-4.50The [facility] DaytonComment on above:Performed By: #### T7, CMP, TSH ####[facility] [address] [id number]. Grace AbdulT3U31.0 %Uixkkr64.0-39.0The [facility] Hospital DaytonComment on above: Performed By: #### T7, CMP, TSH ####[facility] [address] [place], [place]Dr. Grace AbdulT4 [Mass/Vol]3.70 ug/dLCritically low 4.80-13.90The [facility] Hospital DaytonComment on above:Performed By: #### T7, CMP, TSH ####[facility] [address] [place] [id number]. Grace AbdulIRONon 82-41-2661Ekvx [Mass/Vol]52.0 ug/iEOoysnk65.0-170.0The [facility] DaytonComment on above:Performed By: #### CVDTBH #### [facility] [address] [address] [address] Grace Reno 14(COMP METB)on 64-99-7506Fvuihvo [Mass/Vol]3.5 g/dLNormal 3.4-5.0The [facility] DaytonComment on above:Performed By: #### T7, CMP, TSH ####[facility] [address] [place] [id number]. Grace AbdulAlbumin/Globulin [Mass ratio]1.1 {ratio}NormalThe [facility] Comment on above:Performed By: #### T7, CMP, TSH ####[facility] Hrwzhhvmip[address] [place], [place]Dr. Yilan ChangALP [Catalytic activity/Vol]69 U/QUuidbm10-052Nnw [facility] DaytonComment on above:Performed By: #### T7, CMP, TSH ####[facility] Orow[address] [place], [place]Dr. Yilan ChangALT [Catalytic activity/Vol]51 U/LNormal 14-59The [facility] DaytonComment on above:Performed By: #### T7, CMP, TSH ####[facility] Qwuhvnqazy4392 [place], [place]Dr. Yilan ChangAnion gap [Moles/Vol]11.5 mmol/LNormalThe [facility] Hospital DaytonComment on above:Performed By: #### T7, CMP, TSH ####[facility] Mlwcedxfvp4728 [place], [place]Dr. Yilan ChangAST [Catalytic activity/Vol]24 U/L Mmhojn78-09Ubr [facility] DaytonComment on above:Performed By: #### T7, CMP, TSH ####[facility] Tbjthrizoi5918 [place], [place]Dr. Yilan ChangBilirubin [Mass/Vol]0.2 mg/dLNormal0.2-1.0The [facility] Comment on above:Performed By: #### T7, CMP, TSH ####[facility] [address] [place], [place] [id number]. Yilan ChangCalcium [Mass/Vol]9.3 mg/dLNormal8.5-10.1The [facility] on above:Performed By: #### T7, CMP, TSH ####[facility] [address] [place], [place] [id number]. Yilan ChangChloride [Moles/Vol]98 mmol/LNormal 98-107The [facility] DaytonComment on above:Performed By: #### T7, CMP, TSH ####[facility] [address] [place], [place] [id number]. Yilan ChangCO2 [Moles/Vol]28.7 mmol/CPjrbot45.0-32.0The [facility] DaytonComment on above:Performed By: #### T7, CMP, TSH ####[facility] [address]aw[address] [place] [id number]. Yilan ChangCreatinine [Mass/Vol]1.11 mg/dLCritically high0.55-1.02The [facility] DaytonComment on above:Performed By: #### T7, CMP, TSH ####[facility] [address] [place] [address]Dr. Yilan ChangEGFR-AF YOZJVJBE32 mL/min/1.73m2 Critically low>=60The [facility] DaytonComment on above:Performed By: #### T7, CMP, TSH ####[facility] Fvuxdxdpak8186 [place], [place] [address]Rg. Yilan ChangEGFR-NON AF ASRQPJNH00 mL/min/1.63j9Bekztgsaet low>=60The [facility] DaytonComment on above:Performed By: #### T7, CMP, TSH ####[facility] Gerjivvct[address] [place], [place] [address]Dr. Yilan Abdul Globulin (S) [Mass/Vol]3.3 g/dLNormalThe [facility] Hospital DaytonComment on above: Performed By: #### T7, CMP, TSH ####[facility] Ghmtgqcrpi3164 [place], [place]Dr. Yilan ChangGlucose [Mass/Vol]88 mg/lRIpasqm06-301 The [facility] DaytonComment on above:Performed By: #### T7, CMP, TSH ####[facility] Mclzpunlqb[address] [place], [place]Dr. Yilan ChangPotassium [Moles/Vol]4.2 mmol/LNormal3.5-5.1The [facility] Comment on above:Performed By: #### T7, CMP, TSH ####[facility] [address] [place] [address]Dr. Yilan ChangProtein [Mass/Vol]6.8 g/dLNormal6.4-8.2The [facility] DaytonComment on above:Performed By: #### T7, CMP, TSH ####[facility] Wxacyvrvjo26[address] [place], [place]Dr. Yilan ChangSodium [Moles/Vol]134 mmol/LCritically onq582-896Pft [facility] DaytonComment on above:Performed By: #### T7, CMP, TSH ####[facility] [address] [place] [id number]. Yilan ChangUrea nitrogen [Mass/Vol]33.0 mg/dLCritically high7.0-18.0The [facility] DaytonComment on above:Performed By: #### T7, CMP, TSH ####[facility] [address] [place] [address]Dr. Yilan ChangUrea nitrogen/Creatinine [Mass ratio]29.7 mg/mgNormalThe [facility] Hospital DaytonComment on above:Performed By: #### T7, CMP, TSH ####[facility] [address]hr[address] [place] [id number]. Grace AbdulTSHon 46-17-1961AXH5.469 uIU/mL Normal0.358-3.740The [facility] Hospital DaytonComment on above:Performed By: #### T7, CMP, TSH ####[facility] [address]caivedlp[address] [place] [address]Dr. Grace MoranC AUTO DIFFon 50-75-0013NPLC #0.0 103/ulNormal0.0-0.1The [facility] DaytonComment on above:Performed By: #### CVDTBH #### [facility] [address] [address] [address] Grace AbdulBasophils/100 WBC (Bld)0.2 %Normal0.2-2.0The [facility] Comment on above:Performed By: #### CVDTBH #### [facility] [address] [address] [address] Grace Blunt #0.1 103/ulNormal0.0-0.7The [facility] DaytonComment on above: Performed By: #### CVDTBH #### [facility] [address] [place] [address] Dr. Grace Richardosinophils/100 WBC (Bld)0.9 %Normal0.9-7.0[facility] Comment on above:Performed By: #### CVDTBH #### [facility] [address] [place] [address] Dr. Grace Richardrythrocyte distribution width (RBC) [Ratio]12.8 %Rhzeoj60.0-15.[address] [facility] HospitalComment on above:Performed By: #### CVDTBH #### [facility] [address] [place] [address] Dr. Grace AbdulHematocrit (Bld) [Volume fraction]35.2 %Critically low36.0-48.[address] [facility] HospitalComment on above:Performed By: #### CVDTBH #### [facility] [address] [place] [address] Dr. Grace AbdulHemoglobin (Bld) [Mass/Vol]12.1 g/bGDtkkuj89.0-16.0[facility] HospitalComment on above:Performed By: #### CVDTBH #### [facility] [address] [place] [address] Dr. Grace Son #0.05 10e3/ulCritically high0.00-0.03[facility] Comment on above:Performed By: #### CVDTBH #### [facility] [address] [place] [address] Dr. Grace Son %0.6 %Critically high0.0-0.5ThGalion HospitalComment on above:Performed By: #### CVDTBH #### [facility] [address] [place] [address] Dr. Grace Hamilton #0.6 103/ulCritically low1.2-3.8The [facility] Comment on above:Performed By: #### CVDTBH #### [facility] [address] [place] [address] Dr. Grace Hillmphocytes/100 WBC (Bld)7.4 %Critically low20.5-60.0The [facility] DaytonComment on above:Performed By: #### CVDTBH #### [facility] [address] [place] [address] Dr. Grace Gee DIFF REQNONormalThe [facility] Hospital DaytonComment on above: Performed By: #### CVDTBH #### [facility] [address] [place] [address] Dr. Grace Perdomo (RBC) [Entitic mass]31.5 neGgvnbi80.7-34.0The [facility] DaytonComment on above:Performed By: #### CVDTBH #### [facility] [address] [place] [address] Dr. Grace Perdomo (RBC) [Mass/Vol]34.4 g/jFMbvpxn60.9-35.2The [facility] DaytonComment on above:Performed By: #### CVDTBH #### [facility] [address] [place] [address] Dr. Grace Serrano (RBC) [Entitic vol]91.7 oNVecunz05.0-99.0The [facility] DaytonComment on above:Performed By: #### CVDTBH #### [facility] [address] [place] [address] Dr. Grace Barrios #1.0 103/ulCritically high0.3-0.8The [facility] Comment on above:Performed By: #### CVDTBH #### [facility] [address] [place] [address] Dr. Grace Riderocytes/100 WBC (Bld)12.1 %Critically high1.7-12.0The [facility] DaytonComment on above:Performed By: #### CVDTBH #### [facility] [address] [place] [address] Dr. Grace Brar #6.3 103/ulNormal1.4-6.5The [facility] DaytonComment on above:Performed By: #### CVDTBH #### [facility] [address] [place] [address] Dr. Grace AbdulNeutrophils/100 WBC (Bld)78.8 %Critically high43.0-75.0The [facility] DaytonComment on above:Performed By: #### CVDTBH #### [facility] [address] [place] [address] Dr. Grace AbdulPlatelet mean volume (Bld) [Entitic vol]9.1 fLCritically low 9.5-13.5The [facility] DaytonComment on above:Performed By: #### CVDTBH #### [facility] [address] [place] [address] Dr. Grace AbdulPLT281 103/geJensbn695-834Hkx [facility] DaytonComment on above: Performed By: #### CVDTBH #### [facility] [address] [place] [address] Dr. Grace AbdulRBC3.84 106/ulCritically low4.20-5.40The [facility] DaytonComment on above:Performed By: #### CVDTBH #### [facility] [address] [place] [address] Dr. Grace AbdulWBC8.0 103/ulNormal4.0-11.0The [facility] DaytonComment on above: Performed By: #### CVDTBH #### [facility] [address] [place] [address] Dr. Grace AbdulMAGNESIUMon 12-64-1600Rdfvinixq [Mass/Vol]1.9 mg/dLNormal1.8-2.4 The [facility] DaytonComment on above:Performed By: #### CVDTBH #### [facility] [address] [place] [address] Dr. Grace AbdulPROF CHEM 8 (BAS METB)on 23-33-9006Etnil gap [Moles/Vol]13.9 mmol/LNormalThe [facility] Hospital DaytonComment on above:Performed By: #### CVDTBH #### [facility] [address] [place] [address] Dr. Grace AbdulCalcium [Mass/Vol]8.7 mg/dLNormal8.5-10.1The [facility] Comment on above:Performed By: #### CVDTBH #### [facility] [address] [place] [address] Dr. Grace AbdulChloride [Moles/Vol]101 mmol/ORqwedr34-667Mbg [facility] Comment on above:Performed By: #### CVDTBH #### [facility] [address] [place] [address] Dr. Grace AbdulCO2 [Moles/Vol]24.3 mmol/YMdktfv61.0-32.0The [facility] Comment on above:Performed By: #### CVDTBH #### [facility] [address] [place] [address] Dr. Grace AbdulCreatinine [Mass/Vol]0.89 mg/dLNormal0.55-1.02The [facility] DaytonComment on above:Performed By: #### CVDTBH #### [facility] [address] [place] [address] Dr. Grace RichardGFR-AF PUERTO RICAN>60Normal>=60The [facility] DaytonComment on above:Performed By: #### CVDTBH #### [facility] [address] [place] [address] Dr. Grace RichardGFR-NON AF PUERTO RICAN>60Normal>=60The [facility] DaytonComment on above:Performed By: #### CVDTBH #### [facility] [address] [place] [address] Dr. Grace AbdulGlucose [Mass/Vol]97 mg/qCAnzqsh64-775Ozv [facility] Comment on above:Performed By: #### CVDTBH #### [facility] [address] [place] [address] Dr. Grace AbdulPotassium [Moles/Vol]3.2 mmol/LCritically low3.5-5.1The [facility] DaytonComment on above:Performed By: #### CVDTBH #### [facility] [address] [place] [address] Dr. Grace Kaurum [Moles/Vol]136 mmol/TFpdfoq861-723Fki [facility] Comment on above:Performed By: #### CVDTBH #### [facility] [address] [place] [address] Dr. Grace Bernal nitrogen [Mass/Vol]14.0 mg/dLNormal7.0-18.0The [facility] DaytonComment on above:Performed By: #### CVDTBH #### [facility] [address] [place] [address] Dr. Grace Bernal nitrogen/Creatinine [Mass ratio]15.7 mg/mgNormalThe [facility] Hospital DaytonComment on above:Performed By: #### CVDTBH #### [facility] [address] [place] [address] Dr. Grace Casey AUTO DIFFon 33-22-9679ZHXU #0.0 103/ulNormal0.0-0.1The [facility] DaytonComment on above:Performed By: #### BMP #### [facility] [address] [place] [address] Dr. Grace AbdulBasophils/100 WBC (Bld)0.2 %Normal0.2-2.0[facility] Comment on above:Performed By: #### BMP #### [facility] [address] [place] [address] Dr. Grace Blunt #0.0 103/ulNormal0.0-0.7The [facility] DaytonComment on above: Performed By: #### BMP #### [facility] [address] [place] [address] Dr. Grace Richardosinophils/100 WBC (Bld)0.5 %Critically low0.9-7.0The [facility] DaytonComment on above:Performed By: #### BMP #### [facility] [address] [place] [address] Dr. Grace Richardrythrocyte distribution width (RBC) [Ratio]12.4 %Xepgnf78.0-15.0 The [facility] DaytonComment on above:Performed By: #### BMP #### [facility] [address] [place] [address] Dr. Grace AbdulHematocrit (Bld) [Volume fraction]33.6 %Critically low36.0-48.0 The [facility] DaytonComment on above:Performed By: #### BMP #### [facility] [address] [place] [address] Dr. Grace AbdulHemoglobin (Bld) [Mass/Vol]11.8 g/dLCritically low12.0-16.0The [facility] DaytonComment on above:Performed By: #### BMP #### [facility] [address] [place] [address] Dr. Grace AbdulIG #0.04 10e3/ulCritically high0.00-0.03The [facility] Comment on above:Performed By: #### BMP #### [facility] [address] [place] [address] Dr. Grace AbdulIG %0.7 %Critically high0.0-0.5The [facility] DaytonComment on above:Performed By: #### BMP #### [facility] [address] [place] [address] Dr. Grace Hamilton #0.7 103/ulCritically low1.2-3.8The [facility] Comment on above:Performed By: #### BMP #### [facility] [address] [place] [address] Dr. Grace Hillmphocytes/100 WBC (Bld)11.1 %Critically low20.5-60.0The [facility] DaytonComment on above:Performed By: #### BMP #### [facility] [address] [place] [address] Dr. Grace AbdulMANUAL DIFF REQNONormalThe [facility] Hospital DaytonComment on above: Performed By: #### BMP #### [facility] [address] [place] [address] Dr. Grace Joy (RBC) [Entitic mass]31.5 gyMlowpb08.7-34.0The [facility] DaytonComment on above:Performed By: #### BMP #### [facility] [address] [address] [address] Grace PerdomoHC (RBC) [Mass/Vol]35.1 g/gGQdwkpx72.9-35.2The [facility] DaytonComment on above:Performed By: #### BMP #### [facility] [address] [address] [address] Grace PerdomoV (RBC) [Entitic vol]89.6 tUGlcaja01.0-99.0The [facility] HospitalComment on above:Performed By: #### BMP #### [facility] [address] [address] [address] Grace Barrios #0.9 103/ulCritically high0.3-0.8The [facility] Comment on above:Performed By: #### BMP #### [facility] [address] [address] [address] Grace Riderocytes/100 WBC (Bld)14.0 %Critically high1.7-12.0The [facility] DaytonComment on above:Performed By: #### BMP #### [facility] [address] [address] [address] Grace Brar #4.5 103/ulNormal1.4-6.5The [facility] DaytonComment on above:Performed By: #### BMP #### [facility] [address] [address] [address] Grace Solitarioutrophils/100 WBC (Bld)73.5 %Kxyqnr49.0-75.0The [facility] HospitalComment on above:Performed By: #### BMP #### [facility] [address] [address] [address] Grace Stokeslet mean volume (Bld) [Entitic vol]9.3 fLCritically low 9.5-13.5The [facility] DaytonComment on above:Performed By: #### BMP #### [facility] [address] [address] [address] Grace AbdulPLT292 103/xoAfwhzh267-640Rem [facility] DaytonComment on above: Performed By: #### BMP #### [facility] [address] [address] [address] Grace AbdulRBC3.75 106/ulCritically low4.20-5.40The [facility] DaytonComment on above:Performed By: #### BMP #### [facility] [address] [address] [address] Grace AbdulWBC6.1 103/ulNormal4.0-11.0The [facility] DaytonComment on above: Performed By: #### BMP #### [facility] [address] [place] [address] Dr. Grace AbdulCULTURE URINEon 05-40-7731TTTYVCP URINECulture Observations: LIGHT GROWTH OF MIXED GENITAL ALANIS. NO POTENTIAL PATHOGENS SEEN.NormalMercy Health St. [facility] HospitalComment on above:Performed By: #### URCX ####[facility] [address] [place] [address]Dr. Grace RichardR URINE PROFILEon 61-89-5099Iiqqncoda Ql (U)NegativeNormalNEGATIVEMercy Health St. [facility] Comment on above:Performed By: #### CVDTBH #### [facility] [address] [place] [address] Dr. Grace Phelps (U)CLEARNormalCLEARThe [facility] DaytonComment on above: Performed By: #### CVDTBH #### [facility] [address] [place] [address] Dr. Grace Powell (U)LT. YELLOWNormalYELLOWThe [facility] DaytonComment on above:Performed By: #### CVDTBH #### [facility] [address] [place] [address] Dr. Grace Schmidt micrscopic examination will be performed if indicated. NormalMercy Health St. Elizabeth Youngstown HospitalComment on above:Performed By: #### CVDTBH #### [facility] [address] [place] [address] Dr. Grace Gilose Ql (U)NegativeNormalNEGATIVEMercy Health St. [facility] HospitalComment on above:Performed By: #### CVDTBH #### [facility] [address] [address] [address] Grace AbdulHemoglobin Ql (U)SMALLAbnormnhNEGUniversity Hospitals TriPoint [facility] Comment on above:Performed By: #### CVDTBH #### [facility] [address] [address] [address] Grace AbdulKetones Ql (U)40 mg/dlAbnocaromont regional medical center - mount hollyNEGUniversity Hospitals [facility]Point [facility] Comment on above:Performed By: #### CVDTBH #### [facility] [address] [place] [address] Dr. Grace BabbOCYTESSMALLAbnormalNEGATIVEMercy Health St. [facility] HospitalComment on above:Performed By: #### CVDTBH #### [facility] [address] [place] [address] Dr. Grace AbdulNitrite Ql (U)NegativeNormalNEGATIVEMercy Health St. [facility] HospitalComment on above:Performed By: #### CVDTBH #### [facility] [address] [place] [address] Dr. Grace AbdulpH (U)7.0 [pH]Normal5-9[facility] HospitalComment on above: Performed By: #### CVDTBH #### [facility] [address] [place] [address] Dr. Grace AbdulSPEC GRAVITY1.960Ywemgm5.005-<=1.025The [facility] DaytonComment on above:Performed By: #### CVDTBH #### [facility] [address] [place] [address] Dr. Grace Cespedes PROTEINNegativeNormalNEGATIVE/ TRACEMercy Health St. [facility] Comment on above:Performed By: #### CVDTBH #### [facility] [address] [place] [address] Dr. Grace Triplett MICRO INDINDICATEDNoalThGalion HospitalComment on above: Performed By: #### CVDTBH #### [facility] [address] [place] [address] Dr. Grace AbdulUrobilinogen Qn (U)0.2 {Ashley'U}/dLNormal0.2 - 1.0The [facility] DaytonComment on above:Performed By: #### CVDTBH #### [facility] [address] [address] [address] Grace AbdulMAGNESIUMon 47-85-6635Amxrajqkw [Mass/Vol]1.8 mg/dLNormal1.8-2.4 The [facility] DaytonComment on above:Performed By: #### CVDTBH #### [facility] [address] [place] [address] Dr. Grace AbdulPROF CHEM 8 (BAS METB)on 48-04-7553Qzhff gap [Moles/Vol]12.7 mmol/LNormalThe [facility] DaytonComment on above:Performed By: #### BMP #### [facility] [address] [place] [address] Dr. Grace AbdulCalcium [Mass/Vol]8.3 mg/dLCritically low8.5-10.1The [facility] DaytonComment on above:Performed By: #### BMP #### [facility] [address] [place] [address] Dr. Grace AbdulCO2 [Moles/Vol]24.4 mmol/JEyiric13.0-32.0The [facility] Comment on above:Performed By: #### BMP #### [facility] [address] [place] [address] Dr. Grace AbdulCreatinine [Mass/Vol]1.16 mg/dLCritically high0.55-1.02The [facility] DaytonComment on above:Performed By: #### BMP #### [facility] [address] [place] [address] Dr. Grace RichardGFR-AF YAHIIWLH57 mL/min/1.84w6Ledgczgtix low>=60The [facility] DaytonComment on above:Performed By: #### BMP #### [facility] [address] [place] [address] Dr. Grace RichardGFR-NON AF XBICQSHK09 mL/min/1.81s6Qgfjuudjno low>=60The [facility] HospitalComment on above:Performed By: #### BMP #### [facility] [address] [address] [address] Grace AbdulGlucose [Mass/Vol]116 mg/dLCritically qfzu09-739Obo [facility] DaytonComment on above:Performed By: #### BMP #### [facility] [address] [address] [address] Grace AbdulUrea nitrogen [Mass/Vol]20.0 mg/dLCritically high7.0-18.0The [facility] DaytonComment on above:Performed By: #### BMP #### [facility] [address] [address] [address] Grace Bernal nitrogen/Creatinine [Mass ratio]17.2 mg/mgNormalThe [facility] DaytonComment on above:Performed By: #### BMP #### [facility] [address] [address] [address] Grace Kauffmanon gap [Moles/Vol]10.0 mmol/LNormalMercy Health St[facility] Comment on above:Performed By: #### BMP #### [facility] [address] [address] [address] Grace AbdulCalcium [Mass/Vol]8.8 mg/dLNormal8.5-10.1The [facility] Comment on above:Performed By: #### BMP #### [facility] [address] [address] [address] Grace AdbulChloride [Moles/Vol]96 mmol/LCritically cxw47-255Kyd [facility] DaytonComment on above:Performed By: #### BMP #### [facility] [address] [address] [address] Grace AbdulCO2 [Moles/Vol]26.1 mmol/LHhrhin27.0-32.0The [facility] Comment on above:Performed By: #### BMP #### [facility] [address] [address] [address] Grace AbdulCreatinine [Mass/Vol]1.11 mg/dLCritically high0.55-1.02The [facility] HospitalComment on above:Performed By: #### BMP #### [facility] [address] [address] [address] Grace RichardGFR-AF IPZMKSDS44 mL/min/1.22i0Xctjcysrfu low>=60The [facility] DaytonComment on above:Performed By: #### BMP #### [facility] [address] [address] [address] Grace RichardGFR-NON AF DAHSJXAJ83 mL/min/1.27z8Uazlmivrpu low>=60The [facility] DaytonComment on above:Performed By: #### BMP #### [facility] [address] [address] [address] Grace AbdulGlucose [Mass/Vol]94 mg/sCZqqepz53-957Lsb [facility] Comment on above:Performed By: #### BMP #### [facility] [address] [address] [address] Grace AbdulPotassium [Moles/Vol]3.1 mmol/LCritically low3.5-5.1The [facility] Hospitalment on above:Performed By: #### BMP #### [facility] [address] [address] [address] Grace AbdulPerformed By: #### CVDTBH #### [facility] [address] [address] [address] Grace AbdulSodium [Moles/Vol]129 mmol/LCritically xpt936-032Eyo [facility] DaytonComment on above:Performed By: #### BMP #### [facility] [address] [address] [address] Grace AbdulUrea nitrogen [Mass/Vol]16.0 mg/dLNormal7.0-18.0The [facility] DaytonComment on above:Performed By: #### BMP #### [facility] [address] [address] [address] Grace Bernal nitrogen/Creatinine [Mass ratio]14.4 mg/mgNormalThe [facility] DaytonComment on above:Performed By: #### BMP #### [facility] [address] [address] [address] Grace Mosley gap [Moles/Vol]12.6 mmol/LNormalThe [facility] Comment on above:Performed By: #### CVDTBH #### [facility] [address] [place] [address] Dr. Grace AbdulCalcium [Mass/Vol]8.6 mg/dLNormal8.5-10.1The [facility] Comment on above:Performed By: #### CVDTBH #### [facility] [address] [place] [address] Dr. Grace AbdulChloride [Moles/Vol]95 mmol/LCritically ugx07-274Qlf [facility] DaytonComment on above:Performed By: #### BMP #### [facility] [address] [place] [address] Dr. Grace AbdulPerformed By: #### CVDTBH #### [facility] [address] [place] [address] Dr. Grace AbdulCO2 [Moles/Vol]22.5 mmol/NSbqfxf76.0-32.0The [facility] Comment on above:Performed By: #### CVDTBH #### [facility] [address] [place] [address] Dr. Grace AbdulCreatinine [Mass/Vol]0.95 mg/dLNormal0.55-1.02The [facility] DaytonComment on above:Performed By: #### CVDTBH #### [facility] [address] [place] [address] Dr. Grace RichardGFR-AF PUERTO RICAN>60Normal>=60The [facility] DaytonComment on above:Performed By: #### CVDTBH #### [facility] [address] [place] [address] Dr. Grace RichardGFR-NON AF SZHNDRRY08 mL/min/1.98f1Pauuhfilks low>=60The [facility] DaytonComment on above:Performed By: #### CVDTBH #### [facility] [address] [place] [address] Dr. Grace AbdulGlucose [Mass/Vol]92 mg/qGGvtgel40-152Wmt [facility] Comment on above:Performed By: #### CVDTBH #### [facility] [address] [address] [address] Grace Kaurum [Moles/Vol]127 mmol/LCritically hku155-324Msq [facility] DaytonComment on above:Performed By: #### CVDTBH #### [facility] [address] [address] [address] Grace Bernal nitrogen [Mass/Vol]18.0 mg/dLNormal7.0-18.0The [facility] DaytonComment on above:Performed By: #### CVDTBH #### [facility] [address] [address] [address] Grace Bernal nitrogen/Creatinine [Mass ratio]18.9 mg/mgNoAdena Pike Medical CenterComment on above:Performed By: #### CVDTBH #### [facility] [address] [place] [address] Dr. Grace Marcos MICROSCOPIC ONLYon [id number]LI SEEN The [facility] DaytonComment on above:Performed By: #### CVDTBH #### [facility] [address] [place] [address] Dr. Grace Bella identified Cx Nom (U)INDICATEDNoAdena Pike Medical CenterComment on above:Performed By: #### CVDTBH #### [facility] [address] [address] [address] Grace Alexandra SEENNormalNONE SEENMercy Health St. Elizabeth Youngstown HospitalComment on above:Performed By: #### CVDTBH #### [facility] [address] [address] [address] Grace Sood LM Nom (Urine sed)NONE SEENNormalNONE SEENMercy Health St. [facility] HospitalComcorewell health [facility] hospital on above:Performed By: #### CVDTBH #### [facility] [address] [place] [address] Dr. Edwards ChangEpithelial cells LM Ql (Urine sed)FEWAbnormalNONE SEEN /RAREThe [facility] DaytonComment on above:Performed By: #### CVDTBH #### [facility] [address] [place] [address] Dr. Grace SantosCOUSVIKKI SEENNormalNONE SEENThe [facility] DaytonComment on above:Performed By: #### CVDTBH #### [facility] [address] [place] [address] Dr. Grace AbdulYyscvPOT0-2Lvmrdanm1-0Fbs [facility] DaytonComment on above:Performed By: #### CVDTBH #### [facility] [address] [place] [address] Dr. Grace AbdulWBC5-10AbnormalNONE SEENThe [facility] DaytonComment on above: Performed By: #### CVDTBH #### [facility] [address] [place] [address] Dr. Grace AbdulAMYLASEon 56-28-9963Qwzbint [Catalytic activity/Vol]94 U/LNormal 25-115The [facility] DaytonComment on above:Performed By: #### CVDTBH #### [facility] [address] [place] [address] Dr. Grace Arndt [id number] peptide B (Bld) [Mass/Vol]357.0 pg/mL Normal<=1,800.0The [facility] Hospitalment on above:Performed By: #### CVDTBH #### [facility] [address] [place] [address] Dr. Grace Oreilly JOVITA ADMITon [id number] [Catalytic activity/Vol]66 U/L Ihxgyb07-241Xwg [facility] DaytonComment on above:Performed By: #### CVDTBH #### [facility] [address] [place] [address] Dr. Grace Dawn.MB [Mass/Vol]2.19 ng/mLNormal<=3.60The [facility] on above:Performed By: #### CVDTBH #### [facility] [address] [place] [address] Dr. Grace DaoTROP9.5 pg/mLNormal4.0-51.3The [facility] Hospitalment on above:Result Comment: CUT-OFF POINTS HAVE BEEN ESTABLISHED BASED ON THE FOURTH UNIVERSAL DEFINITIONS OF MYOCARDIAL INFARCTION. THE UPPER REFERENCE LIMIT (URL) OF TROPONIN, DEFINED THE 99TH PERCENTILE OF cTnI DISTRIBUTION IN A REFERENCE POPULATION, HAS BEEN CONFIRMED THE DECISION THRESHOLD FOR [place] DIAGNOSIS.Performed By: #### CVDTBH #### [facility] [address] [place] [address] Dr. Grace Woods73 ng/mLNormal9-82The [facility] DaytonComment on above: Performed By: #### CVDTBH #### [facility] [address] [place] [address] Dr. Grace Casey AUTO DIFFon [id number] #0.0 103/ulNormal0.0-0.1The [facility] Hospitalment on above:Performed By: #### BMP #### [facility] [address] [place] [address] Dr. Grace AbdulBasophils/100 WBC (Bld)0.1 %Critically low0.2-2.0The [facility] DaytonComment on above:Performed By: #### BMP #### [facility] [address] [place] [address] Dr. Grace Blunt #0.0 103/ulNormal0.0-0.7The [facility] DaytonComcorewell health [facility] on above: Performed By: #### BMP #### [facility] [address] [place] [address] Dr. Grace Richardosinophils/100 WBC (Bld)0.1 %Critically low0.9-7.0The [facility] Hospitalment on above:Performed By: #### BMP #### [facility] [address] [place] [address] Dr. Grace Richardrythrocyte distribution width (RBC) [Ratio]11.9 %Rvfvbn05.0-15.0 The [facility] Hospitalment on above:Performed By: #### BMP #### [facility] [address] [address] [address] Grace AbdulHematocrit (Bld) [Volume fraction]36.6 %Nkuttt87.0-48.0The [facility] DaytonComment on above:Performed By: #### BMP #### [facility] [address] [place] [address] Dr. Grace AbdulHemoglobin (Bld) [Mass/Vol]13.2 g/rWPcufvs39.0-16.0The [facility] DaytonComment on above:Performed By: #### BMP #### [facility] [address] [place] [address] Dr. Grace AbdulIG #0.05 10e3/ulCritically high0.00-0.03The [facility] Comment on above:Performed By: #### BMP #### [facility] [address] [place] [address] Dr. Grace AbdulIG %0.7 %Critically high0.0-0.5The [facility] DaytonComment on above:Performed By: #### BMP #### [facility] [address] [address] [address] Grace Hamilton #0.7 103/ulCritically low1.2-3.8The [facility] Comment on above:Performed By: #### BMP #### [facility] [address] [place] [address] Dr. Grace Hillmphocytes/100 WBC (Bld)9.8 %Critically low20.5-60.0The [facility] DaytonComment on above:Performed By: #### BMP #### [facility] [address] [place] [address] Dr. Grace AbdulMANUAL DIFF REQNONormalThe [facility] DaytonComment on above: Performed By: #### BMP #### [facility] [address] [place] [address] Dr. Grace Joy (RBC) [Entitic mass]31.5 ioFjsexo21.7-34.0The [facility] DaytonComment on above:Performed By: #### BMP #### [facility] [address] [address] [address] Grace PerdomoHC (RBC) [Mass/Vol]36.1 g/dLCritically high29.9-35.2The [facility] DaytonComment on above:Performed By: #### BMP #### [facility] [address] [place] [address] Dr. Grace PerdomoV (RBC) [Entitic vol]87.4 aDWdartf72.0-99.0The [facility] DaytonComment on above:Performed By: #### BMP #### [facility] [address] [place] [address] Dr. Grace Barrios #0.9 103/ulCritically high0.3-0.8The [facility] Comment on above:Performed By: #### BMP #### [facility] [address] [place] [address] Dr. Grace Riderocytes/100 WBC (Bld)12.4 %Critically high1.7-12.0The [facility] DaytonComment on above:Performed By: #### BMP #### [facility] [address] [place] [address] Dr. Grace Brar #5.8 103/ulNormal1.4-6.5The [facility] DaytonComment on above:Performed By: #### BMP #### [facility] [address] [place] [address] Dr. Grace Solitarioutrophils/100 WBC (Bld)76.9 %Critically high43.0-75.0The [facility] DaytonComment on above:Performed By: #### BMP #### [facility] [address] [place] [address] Dr. Grace Stokeslet mean volume (Bld) [Entitic vol]9.0 fLCritically low 9.5-13.5The [facility] DaytonComment on above:Performed By: #### BMP #### [facility] [address] [place] [address] Dr. Grace AbdulPLT361 103/jcBpljmz231-940Bwr [facility] DaytonComment on above: Performed By: #### BMP #### [facility] [address] [place] [address] Dr. Grace AbdulRBC4.19 106/ulCritically low4.20-5.40The [facility] DaytonComment on above:Performed By: #### BMP #### [facility] [address] [place] [address] Dr. Grace AbdulWBC7.6 103/ulNormal4.0-11.0The [facility] DaytonComment on above: Performed By: #### BMP #### [facility] [address] [place] [address] Dr. Grace AbdulCovid-19 PCR (CVDTB)on 12-70-6688VYKZ-CoV-2 (COVID-19) RNA LUISITO+probe Ql (Unsp spec)Not detectedNormalNOT DETECTEDThe [facility] Comment on above:Result Comment: When diagnostic testing [...] for this test is supported by the [place] [employer]'s declaration that [...] longer be used).Performed By: #### CVDTBH #### [facility] [address] [place] [address] Dr. Garce AbdulLIPASEon 21-95-9585Jnmfoj [Catalytic activity/Vol]178.0 U/LNormal 73.0-393.0The [facility] DaytonComment on above:Performed By: #### CVDTBH #### [facility] [address] [place] [address] Dr. Grace ArmendarizF 14(COMP METB)on 04-51-2727Giaxiwn [Mass/Vol]4.1 g/dLNormal 3.4-5.0The [facility] DaytonComment on above:Performed By: #### CVDTBH #### [facility] [address] [address] [address] Grace AbdulAlbumin/Globulin [Mass ratio]1.2 {ratio}NormalThe [facility] DaytonComment on above:Performed By: #### CVDTBH #### [facility] [address] [address] [address] Grace Wilcox [Catalytic activity/Vol]63 U/TJfukeq02-253Dzq [facility] DaytonComment on above:Performed By: #### CVDTBH #### [facility] [address] [address] [address] Grace CalderonT [Catalytic activity/Vol]29 U/AVgohgs61-48Iok [facility] DaytonComment on above:Performed By: #### CVDTBH #### [facility] [address] [address] [address] Grace Mosley gap [Moles/Vol]14.8 mmol/LNormalThe [facility] Comment on above:Performed By: #### CVDTBH #### [facility] [address] [address] [address] Grace AbdulAST [Catalytic activity/Vol]25 U/FBxulbt79-60Wev [facility] DaytonComment on above:Performed By: #### CVDTBH #### [facility] [address] [address] [address] Grace AbdulBilirubin [Mass/Vol]0.6 mg/dLNormal0.2-1.0The [facility] Comment on above:Performed By: #### CVDTBH #### [facility] [address] [address] [address] Grace AbdulCalcium [Mass/Vol]9.4 mg/dLNormal8.5-10.1[facility] Comment on above:Performed By: #### CVDTBH #### [facility] [address] [address] [address] Grace AbdulChloride [Moles/Vol]83 mmol/LCritically psg94-501Xqk [facility] DaytonComment on above:Performed By: #### CVDTBH #### [facility] [address] [address] [address] Grace AbdulCO2 [Moles/Vol]24.4 mmol/TCgeqbg60.0-32.0The [facility] Comment on above:Performed By: #### CVDTBH #### [facility] [address] [address] [address] Grace AbdulCreatinine [Mass/Vol]1.15 mg/dLCritically high0.55-1.02The [facility] DaytonComment on above:Performed By: #### CVDTBH #### [facility] [address] [place] [address] Dr. Edwards ChangEGFR-AF OCBYEMEJ96 mL/min/1.26z1Mprvwfuzzu low>=60The [facility] DaytonComment on above:Performed By: #### CVDTBH #### [facility] [address] [address] [address] Grace RichardGFR-NON AF HRJPGIUX08 mL/min/1.86r3Xhxrhbifhw low>=60The [facility] DaytonComment on above:Performed By: #### CVDTBH #### [facility] [address] [address] [address] Grace AbdulGlobulin (S) [Mass/Vol]3.4 g/dLNormalThe [facility] DaytonComment on above:Performed By: #### CVDTBH #### [facility] [address] [address] [address] Grace AbdulGlucose [Mass/Vol]147 mg/dLCritically dqmw84-043Nug [facility] DaytonComment on above:Performed By: #### CVDTBH #### [facility] [address] [place] [address] Dr. Grace AbdulPotassium [Moles/Vol]3.2 mmol/LCritically low3.5-5.1The [facility] DaytonComment on above:Performed By: #### CVDTBH #### [facility] [address] [address] [address] Grace AbdulProtein [Mass/Vol]7.5 g/dLNormal6.4-8.2The [facility] Comment on above:Performed By: #### CVDTBH #### [facility] [address] [address] [address] Grace AbdulUrea nitrogen/Creatinine [Mass ratio]21.7 mg/mgNormalThe [facility] DaytonComment on above:Performed By: #### CVDTBH #### [facility] [address] [place] [address] Dr. Grace AbdulPROF CHEM 8 (BAS METB)on 35-71-1158Acird gap [Moles/Vol]13.6 mmol/LNormalThe [facility] DaytonComment on above:Performed By: #### CVDTBH #### [facility] [address] [place] [address] Dr. Grace AbdulCalcium [Mass/Vol]8.8 mg/dLNormal8.5-10.1[facility] Comment on above:Performed By: #### CVDTBH #### [facility] [address] [place] [address] Dr. Grace AbdulChloride [Moles/Vol]88 mmol/LCritically gwx78-762SnwMercy Health St. [facility] HospitalComment on above:Performed By: #### CVDTBH #### [facility] [address] [place] [address] Dr. Grace AbdulCO2 [Moles/Vol]21.8 mmol/ARqkeke73.0-32.0The [facility] Comment on above:Performed By: #### CVDTBH #### [facility] [address] [place] [address] Dr. Grace AbdulCreatinine [Mass/Vol]1.11 mg/dLCritically high0.55-1.02[facility] HospitalComment on above:Performed By: #### CVDTBH #### [facility] [address] [address] [address] Edwards ChangEGFR-AF XRXHMGLG57 mL/min/1.58y7Uyxpnmscwf low>=60The [facility] DaytonComment on above:Performed By: #### CVDTBH #### [facility] [address] [address] [address] Grace RichardGFR-NON AF EGSBDSAB90 mL/min/1.57f5Aywlwfewdi low>=60The [facility] DaytonComment on above:Performed By: #### CVDTBH #### [facility] [address] [place] [address] Dr. Grace AbdulGlucose [Mass/Vol]132 mg/dLCritically lnuw63-328Hmx [facility] on above:Performed By: #### CVDTBH #### [facility] [address] [place] [address] Dr. Grace AbdulPotassium [Moles/Vol]3.4 mmol/LCritically low3.5-5.1The [facility] DaytonComment on above:Performed By: #### CVDTBH #### [facility] [address] [place] [address] Dr. Grace AbdulSodium [Moles/Vol]120 mmol/LCritically qtn906-349Iyl [facility] on above:Result Comment: Test Repeated. Critical Value Verified Performed By: #### CVDTBH #### [facility] [address] [place] [address] Dr. Grace AbdulUrea nitrogen [Mass/Vol]25.0 mg/dLCritically high7.0-18.0The [facility] Hospitalment on above:Performed By: #### CVDTBH #### [facility] [address] [place] [address] Dr. Grace AbdulUrea nitrogen/Creatinine [Mass ratio]22.5 mg/mgNormalThe [facility] DaytonComcorewell health [facility] on above:Performed By: #### CVDTBH #### [facility] [address] [place] [address] Dr. Grace AbdulPROTIMEjustina 23-28-5300SKG Coag (PPP) [Relative time]0.94 {INR} NormalBarberton Citizens Hospitalment on above:Performed By: #### CVDTBH #### [facility] [address] [address] [address] Grace KellyR GUIDELINESSEE [facility] District HospitalComment on above:Result Comment: DESIRED INR: 2.0 - 3.0 CONDITIONS NOT LISTED BELOW 2.5 - 3.5 FOR PROSTHETIC HEART VALVE REPLACEMENT 2.5 - 3.5 RECURRENT THROMBOSIS Performed By: #### CVDTBH #### [facility] [id number] Grace AbdulPT Coag (PPP) [Time]10.2 sNormal9.0-11.6The [facility] Comment on above:Performed By: #### CVDTBH #### [facility] [address] [address] [address] Grace AbdulXR ABD FLAT UP_PA Sergio 10-25-7756TE ABD FLAT UP_PA CHX-RAY ABDOMINAL WITH CHEST. [...] Electronically authenticated by: JARET LINARES Date: 2021-11-15 13:[address] [place], [place] [address]BNPon [id number] peptide B (Bld) [Mass/Vol]546.0 pg/mLNormal<=1,800.0The [facility] on above:Performed By: #### CMP, TSH, HSTROPN, BNP ####[facility] [address] [place], [place] [address]EcDr. Grace Casey AUTO DIFFon 58-15-7612MMJM #0.0 103/ulNormal0.0-0.1The [facility] HospitalComment on above:Performed By: #### CBC #### [facility] [address] [place] [address] Dr. Grace AbdulBasophils/100 WBC (Bld)0.3 %Normal0.2-2.0The [facility] on above:Performed By: #### CBC #### [facility] [address] [place] [address] Dr. Grace Blunt #0.0 103/ulNormal0.0-0.7The [facility] DaytonComment on above: Performed By: #### CBC #### [facility] [address] [place] [address] Dr. Grace Richardosinophils/100 WBC (Bld)0.5 %Critically low0.9-7.0The [facility] DaytonComment on above:Performed By: #### CBC #### [facility] [address] [place] [address] Dr. Grace Richardrythrocyte distribution width (RBC) [Ratio]12.9 %Ajathh95.0-15.0 The [facility] DaytonComment on above:Performed By: #### CBC #### [facility] [address] [place] [address] Dr. Grace AbdulHematocrit (Bld) [Volume fraction]36.1 %Zomrnb81.0-48.0The [facility] DaytonComment on above:Performed By: #### CBC #### [facility] [address] [place] [address] Dr. Grace AbdulHemoglobin (Bld) [Mass/Vol]12.3 g/sIIjxelo55.0-16.0The [facility] DaytonComment on above:Performed By: #### CBC #### [facility] [address] [place] [address] Dr. Grace Son #0.01 10e3/ulNormal0.00-0.03The [facility] DaytonComment on above:Performed By: #### CBC #### [facility] [address] [place] [address] Dr. Grace Son %0.3 %Normal0.0-0.5The [facility] DaytonComment on above: Performed By: #### CBC #### [facility] [address] [place] [address] Dr. Grace Hamilton #0.6 103/ulCritically low1.2-3.8The [facility] Comment on above:Performed By: #### CBC #### [facility] [address] [place] [address] Dr. Grace Willishocytes/100 WBC (Bld)14.8 %Critically low20.5-60.0The [facility] DaytonComment on above:Performed By: #### CBC #### [facility] [address] [place] [address] Dr. Grace Gee DIFF REQNONormalThe [facility] DaytonComment on above: Performed By: #### CBC #### [facility] [address] [place] [address] Dr. Grace Joy (RBC) [Entitic mass]31.5 ekQufqof06.7-34.0The [facility] DaytonComment on above:Performed By: #### CBC #### [facility] [address] [place] [address] Dr. Grace Perdomo (RBC) [Mass/Vol]34.1 g/oOZksqss67.9-35.2The [facility] DaytonComment on above:Performed By: #### CBC #### [facility] [address] [place] [address] Dr. Grace Serrano (RBC) [Entitic vol]92.6 iMTpftyl96.0-99.0The [facility] DaytonComment on above:Performed By: #### CBC #### [facility] [address] [place] [address] Dr. Grace Barrios #0.5 103/ulNormal0.3-0.8The [facility] DaytonComment on above:Performed By: #### CBC #### [facility] [address] [place] [address] Dr. Grace Riderocytes/100 WBC (Bld)13.5 %Critically high1.7-12.0The [facility] DaytonComment on above:Performed By: #### CBC #### [facility] [address] [place] [address] Dr. Grace Brar #2.7 103/ulNormal1.4-6.5The [facility] DaytonComment on above:Performed By: #### CBC #### [facility] [address] [place] [address] Dr. Grace Solitarioutrophils/100 WBC (Bld)70.6 %Brxkpp51.0-75.0The [facility] DaytonComment on above:Performed By: #### CBC #### [facility] [address] [place] [address] Dr. Grace AbdulPlatelet mean volume (Bld) [Entitic vol]9.2 fLCritically low 9.5-13.5The [facility] DaytonComment on above:Performed By: #### CBC #### [facility] [address] [place] [address] Dr. Grace AbdulPLT279 103/qdXeacyo039-955Lys [facility] DaytonComcorewell [facility] on above: Performed By: #### CBC #### [facility] [address] [place] [address] Dr. Grace AbdulRBC3.90 106/ulCritically low4.20-5.40The [facility] on above:Performed By: #### CBC #### [facility] [address] [place] [address] Dr. Grace AbdulWBC3.9 103/ulCritically low4.0-11.0The [facility] DaytonComment on above:Performed By: #### CBC #### [facility] [address] [place] [address] Dr. Grace AbdulPROF 14(COMP METB)on 02-37-0917Jzwrumr [Mass/Vol]3.3 g/dL Critically low3.4-5.0The [facility] DaytonComment on above:Performed By: #### CMP, TSH, HSTROPN, BNP #### [facility] [address] [place] [address] Dr. Grace AbdulAlbumin/Globulin [Mass ratio]1.2 {ratio}NormalThe [facility] DaytonComment on above:Performed By: #### CMP, TSH, HSTROPN, BNP #### [facility] [address] [place] [address] Dr. Grace CalderonP [Catalytic activity/Vol]60 U/IRuwtwa64-426Wgu [facility] DaytonComment on above:Performed By: #### CMP, TSH, HSTROPN, BNP #### [facility] [address] [place] [address] Dr. Grace Restrepo [Catalytic activity/Vol]26 U/TYkyyfr07-42Dqe [facility] DaytonComment on above:Performed By: #### CMP, TSH, HSTROPN, BNP #### [facility] [address] [place] [address] Dr. Grace Kauffmanon gap [Moles/Vol]14.8 mmol/LNormalThe [facility] Comment on above:Performed By: #### CMP, TSH, HSTROPN, BNP #### [facility] [address] [place] [address] Dr. Grace AbdulAST [Catalytic activity/Vol]20 U/IDvzayj82-54Fjj [facility] Hospitalment on above:Performed By: #### CMP, TSH, HSTROPN, BNP #### [facility] [address] [place] [address] Dr. Grace AbdulBilirubin [Mass/Vol]0.3 mg/dLNormal0.2-1.0The [facility] Comment on above:Performed By: #### CMP, TSH, HSTROPN, BNP #### [facility] [address] [place] [address] Dr. Grace AbdulCalcium [Mass/Vol]8.2 mg/dLCritically low8.5-10.1The [facility] DaytonComment on above:Performed By: #### CMP, TSH, HSTROPN, BNP #### Access [facility] [address] [place], [place] [id number] Dr. Grace AbdulChloride [Moles/Vol]100 mmol/ETbjerq00-639Ysy [facility] Comment on above:Performed By: #### CMP, TSH, HSTROPN, BNP #### [facility] [address] [place] [address] Dr. Grace AbdulCO2 [Moles/Vol]23.8 mmol/IYvepmv31.0-32.0The [facility] Comment on above:Performed By: #### CMP, TSH, HSTROPN, BNP #### [facility] [address] [place] [address] Dr. Grace AbdulCreatinine [Mass/Vol]1.27 mg/dLCritically high0.55-1.02[facility] HospitalComment on above:Performed By: #### CMP, TSH, HSTROPN, BNP #### [facility] [address] [place] [address] Dr. Grace RichardGFR-AF HZUYHNCH24 mL/min/1.23r7Hhnovwqwgs low>=60The [facility] DaytonComment on above:Performed By: #### CMP, TSH, HSTROPN, BNP #### [facility] [address] [place] [address] Dr. Grace Byrd-NON AF RTYNHSTJ71 mL/min/1.02u7Tyahwtanuv low>=60The [facility] DaytonComment on above:Performed By: #### CMP, TSH, HSTROPN, BNP #### [facility] [address] [place] [address] Dr. Grace AbdulGlobulin (S) [Mass/Vol]2.7 g/dLNormalThe [facility] DaytonComment on above:Performed By: #### CMP, TSH, HSTROPN, BNP #### [facility] [address] [place] [address] Dr. Grace AbdulGlucose [Mass/Vol]116 mg/dLCritically jxbc64-927Mvq [facility] DaytonComment on above:Performed By: #### CMP, TSH, HSTROPN, BNP #### [facility] [address] [place] [address] Dr. Grace AbdulPotassium [Moles/Vol]3.6 mmol/LNormal3.5-5.1[facility] Comment on above:Performed By: #### CMP, TSH, HSTROPN, BNP #### [facility] [address] [address] [address] Grace AbdulProtein [Mass/Vol]6.0 g/dLCritically low6.4-8.2The [facility] DaytonComment on above:Performed By: #### CMP, TSH, HSTROPN, BNP #### [facility] [address] [address] [address] Grace AbdulSodium [Moles/Vol]135 mmol/LCritically wyo644-887Hxd [facility] DaytonComment on above:Performed By: #### CMP, TSH, HSTROPN, BNP #### [facility] [address] [place] [address] Dr. Grace AbdulUrea nitrogen [Mass/Vol]25.0 mg/dLCritically high7.0-18.0The [facility] DaytonComment on above:Performed By: #### CMP, TSH, HSTROPN, BNP #### [facility] [address] [place] [address] Dr. Grace Bernal nitrogen/Creatinine [Mass ratio]19.7 mg/mgNoAdena Pike Medical CenterComment on above:Performed By: #### CMP, TSH, HSTROPN, BNP #### [facility] [address] [place] [address] Dr. Grace AbdulPROTIMEjustina [id number] Coag (PPP) [Relative time]0.95 {INR} NormalThe [facility] DaytonComment on above:Performed By: #### BMP #### [facility] [address] [place] [address] Dr. Grace Ayala GUIDELINESSEE BELOWAvita Health SystemComment on above:Result Comment: DESIRED INR: 2.0 - 3.0 CONDITIONS NOT LISTED BELOW 2.5 - 3.5 FOR PROSTHETIC HEART VALVE REPLACEMENT 2.5 - 3.5 RECURRENT THROMBOSIS Performed By: #### BMP #### [facility] [address] [place], [place] [address] Dr. Grace Robles Coag (PPP) [Time]10.3 sNormal9.0-11.6The [facility] Comment on above:Performed By: #### BMP #### [facility] [address] [place], [place] [address] Dr. Grace Villa 74-34-0847nRLA Coag (Bld) [Time]21.3 sCritically low 22.3-36.2The [facility] DaytonComment on above:Performed By: #### BMP #### [facility] [address] [address] [address] Grace Bland HIGH SENSITIVITYon 61-46-5307XEFAFJ3.5 pg/mLNormal 4.0-51.3The [facility] DaytonComment on above:Result Comment: CUT-OFF POINTS HAVE BEEN ESTABLISHED BASED ON THE FOURTH UNIVERSAL DEFINITIONS OF MYOCARDIAL INFARCTION. THE UPPER REFERENCE LIMIT (URL) OF TROPONIN, DEFINED THE 99TH PERCENTILE OF cTnI DISTRIBUTION IN A REFERENCE POPULATION, HAS BEEN CONFIRMED THE DECISION THRESHOLD FOR [place] DIAGNOSIS.Performed By: #### CMP, TSH, HSTROPN, BNP #### [facility] [address] [id number] Grace Vivas 77-61-3471UUG8.140 uIU/mLNormal0.358-3.740The [facility] DaytonComment on above:Performed By: #### CMP, TSH, HSTROPN, BNP ####[facility] [address] [place], [place] [address]UjDr. Grace AbdulXR CHEST 1 Von 05-44-0242AT CHEST 1 VEXAMINATION: XR CHEST 1 V [...] Electronically authenticated by: KRANTHI CONNORS Date: 2021-11-11 13:34NoAdena Pike Medical CenterCARDIAC JOVITA ADMITon [id number] [Catalytic activity/Vol]89 U/ZImbtvr79-391Dud [facility] DaytonComment on above:Performed By: #### CVDTBH #### [facility] [address] [address] [address] Grace Dawn.MB [Mass/Vol]1.92 ng/mLNormal<=3.60[facility] Comment on above:Performed By: #### CVDTBH #### [facility] [address] [address] [address] Grace DaoTROP5.7 pg/mLNormal4.0-51.3The [facility] DaytonComment on above:Result Comment: CUT-OFF POINTS HAVE BEEN ESTABLISHED BASED ON THE FOURTH UNIVERSAL DEFINITIONS OF MYOCARDIAL INFARCTION. THE UPPER REFERENCE LIMIT (URL) OF TROPONIN, DEFINED THE 99TH PERCENTILE OF cTnI DISTRIBUTION IN A REFERENCE POPULATION, HAS BEEN CONFIRMED THE DECISION THRESHOLD FOR [place] DIAGNOSIS.Performed By: #### CVDTBH #### [facility] [address] [address] [address] Grace Woods86 ng/mLCritically high9-82The [facility] DaytonComment on above:Performed By: #### CVDTBH #### [facility] [address] [address] [address] Grace Casey AUTO DIFFon 97-44-3091AURO #0.0 103/ulNormal0.0-0.1The [facility] DaytonComment on above:Performed By: #### CVDTBH #### [facility] [address] [address] [address] Grace AbdulBasophils/100 WBC (Bld)0.5 %Normal0.2-2.0[facility] Comment on above:Performed By: #### CVDTBH #### [facility] [address] [address] [address] Grace Blunt #0.0 103/ulNormal0.0-0.7The [facility] DaytonComment on above: Performed By: #### CVDTBH #### [facility] [address] [place] [address] Dr. Grace Richardosinophils/100 WBC (Bld)0.7 %Critically low0.9-7.0The [facility] DaytonComment on above:Performed By: #### CVDTBH #### [facility] [address] [place] [address] Dr. Grace Richardrythrocyte distribution width (RBC) [Ratio]13.2 %Eaulcw11.0-15.0 The [facility] DaytonComment on above:Performed By: #### CVDTBH #### [facility] [address] [place] [address] Dr. Grace AbdulHematocrit (Bld) [Volume fraction]34.8 %Critically low36.0-48.0 The [facility] DaytonComment on above:Performed By: #### CVDTBH #### [facility] [address] [place] [address] Dr. Grace AbdulHemoglobin (Bld) [Mass/Vol]11.9 g/dLCritically low12.0-16.0The [facility] DaytonComment on above:Performed By: #### CVDTBH #### [facility] [address] [place] [address] Dr. Grace Son #0.01 10e3/ulNormal0.00-0.03The [facility] DaytonComment on above:Performed By: #### CVDTBH #### [facility] [address] [place] [address] Dr. Grace Son %0.2 %Normal0.0-0.5The [facility] DaytonComment on above: Performed By: #### CVDTBH #### [facility] [address] [place] [address] Dr. Grace WillisH #0.6 103/ulCritically low1.2-3.8The [facility] Comment on above:Performed By: #### CVDTBH #### [facility] [address] [place] [address] Dr. Grace Hillmphocytes/100 WBC (Bld)14.2 %Critically low20.5-60.0The [facility] DaytonComment on above:Performed By: #### CVDTBH #### [facility] [address] [place] [address] Dr. Grace FloresUAL DIFF REQNONormalThe [facility] DaytonComment on above: Performed By: #### CVDTBH #### [facility] [address] [place] [address] Dr. Grace Perdomo (RBC) [Entitic mass]31.5 deWwuwei18.7-34.0The [facility] DaytonComment on above:Performed By: #### CVDTBH #### [facility] [address] [place] [address] Dr. Grace Perdomo (RBC) [Mass/Vol]34.2 g/bTRbidwi12.9-35.2The [facility] DaytonComment on above:Performed By: #### CVDTBH #### [facility] [address] [place] [address] Dr. Grace Perdomo (RBC) [Entitic vol]92.1 gOMzsogd84.0-99.0The [facility] DaytonComment on above:Performed By: #### CVDTBH #### [facility] [address] [place] [address] Dr. Grace Barrios #0.7 103/ulNormal0.3-0.8The [facility]Comment on above:Performed By: #### CVDTBH #### [facility] [address] [place] [address] Dr. Grace Riderocytes/100 WBC (Bld)15.6 %Critically high1.7-12.0The [facility] DaytonComment on above:Performed By: #### CVDTBH #### [facility] [address] [place] [address] Dr. Grace Brar #3.0 103/ulNormal1.4-6.5The [facility]Comment on above:Performed By: #### CVDTBH #### [facility] [address] [place] [address] Dr. Grace Solitarioutrophils/100 WBC (Bld)68.8 %Cegrat04.0-75.0The [facility] DaytonComment on above:Performed By: #### CVDTBH #### [facility] [address] [place] [address] Dr. Grace AbdulPlatelet mean volume (Bld) [Entitic vol]9.5 fLNormal9.5-13.5The [facility] DaytonComment on above:Performed By: #### CVDTBH #### [facility] [address] [place] [address] Dr. Grace AbdulPLT303 103/kkZmnjjs596-801Qju [facility] DaytonComment on above: Performed By: #### CVDTBH #### [facility] [address] [place] [address] Dr. Grace AbdulRBC3.78 106/ulCritically low4.20-5.40The [facility] DaytonComment on above:Performed By: #### CVDTBH #### [facility] [address] [place] [address] Dr. Grace AbdulWBC4.4 103/ulNormal4.0-11.0The [facility] DaytonComment on above: Performed By: #### CVDTBH #### [facility] [address] [place] [address] Dr. Grace AbdulCT HEAD WO CONon 66-90-1917KE HEAD WO CONEXAMINATION: CT HEAD WO CON [...] Electronically authenticated by: KRANTHI CONNORS Date: 2021-09-13 13:24NoAdena Pike Medical CenterCovid-19 PCR (CVDTBH)on 73-17-2660RFTL-CoV-2 (COVID-19) RNA LUISITO+probe Ql (Unsp spec)Not detectedNormalNOT DETECTEDMercy Health St. [facility] Comment on above:Result Comment: When diagnostic [...] for this test is supported by the [place] of [employer] and Human Service's declaration that [...] longer be used).Performed By: #### CVDTBH #### [facility] [address] [place] [address] Dr. Edwards ChangEJimenez URINE PROFILEon 47-99-7826Mbvdjqtjl Ql (U)NegativeNormal NEGATIVEMercy Health St. [facility] HospitalComment on above:Performed By: #### BMP #### [facility] [address] [address] [address] Grace Phelps (U)CLEARNormalCLEARMercy Health St. Elizabeth [facility]stown HospitalComment on above: Performed By: #### BMP #### [facility] [address] [place] [address] Dr. Grace Powell (U)LT. YELLOWNormalYELLOWMercy Health St. Elizabeth [facility]stown HospitalComment on above:Performed By: #### BMP #### [facility] [address] [place] [address] Dr. Grace Schmidt micrscopic examination will be performed if indicated. NormalMercy Health St. Elizabeth Youngstown HospitalComment on above:Performed By: #### BMP #### [facility] [address] [address] [address] Grace AbdulGlucose Ql (U)NegativeNormalNEGATIVEMercy Health St. [facility] HospitalComment on above:Performed By: #### BMP #### [facility] [address] [place] [address] Dr. Grace AbdulHemoglobin Ql (U)NegativeNormalNEGUniversity Hospitals [facility] Comment on above:Performed By: #### BMP #### [facility] [address] [place] [address] Dr. Grace AbdulKetones Ql (U)TRACEAbnormalNEGATIVEMercy Health St. [facility] HospitalComment on above:Performed By: #### BMP #### [facility] [address] [place] [address] Dr. Grace AbdulLEUKOCYTESTRACEAbnormalNEGATIVEMercy Health St. [facility] HospitalComment on above:Performed By: #### BMP #### [facility] [address] [place] [address] Dr. Grace AbdulNitrite Ql (U)NegativeNormalNEGATIVEMercy Health St. [facility] HospitalComment on above:Performed By: #### BMP #### [facility] [address] [place] [address] Dr. Grace AbdulpH (U)8.0 [pH]Normal5-9[facility] HospitalComment on above: Performed By: #### BMP #### [facility] [address] [place] [address] Dr. Grace AbdulSPEC GRAVITY1.593Ulidmv3.005-<=1.025[facility] HospitalComment on above:Performed By: #### BMP #### [facility] [address] [place] [address] Dr. Grace AbdulUA PROTEINNegativeNormalNEGATIVE/ TRACEMercy Health St. [facility] Comment on above:Performed By: #### BMP #### [facility] [address] [place] [address] Dr. Grace Triplett MICRO INDINDICATEDNormalThe [facility] DaytonComment on above: Performed By: #### BMP #### [facility] [address] [place] [address] Dr. Grace AbdulUrobilinogen Qn (U)0.2 {Ashley'U}/dLNormal0.2 - 1.0The [facility] DaytonComment on above:Performed By: #### BMP #### [facility] [address] [place] [address] Dr. Grace AbdulPROF 14(COMP METB)on 48-29-9943Ojvxiga [Mass/Vol]3.8 g/dLNormal 3.4-5.0The [facility]Comment on above:Performed By: #### CVDTBH #### [facility] [address] [place] [address] Dr. Grace AbdulAlbumin/Globulin [Mass ratio]1.4 {ratio}NormalThe [facility] DaytonComment on above:Performed By: #### CVDTBH #### [facility] [address] [place] [address] Dr. Grace Wilcox [Catalytic activity/Vol]53 U/LRnpfcq06-144Uwa [facility] Hospitalment on above:Performed By: #### CVDTBH #### [facility] [address] [place] [address] Dr. Grace Restrepo [Catalytic activity/Vol]20 U/BHdtihs59-06Jav [facility] Hospitalment on above:Performed By: #### CVDTBH #### [facility] [address] [place] [address] Dr. Grace Mosley gap [Moles/Vol]12.0 mmol/LNormalThe [facility] on above:Performed By: #### CVDTBH #### [facility] [address] [place] [address] Dr. Grace Mortensen [Catalytic activity/Vol]18 U/FOxbowh83-42Icv [facility] HospitalComment on above:Performed By: #### CVDTBH #### [facility] [address] [address] [address] Grace AbdulBilirubin [Mass/Vol]0.4 mg/dLNormal0.2-1.0[facility] Comment on above:Performed By: #### CVDTBH #### [facility] [address] [place] [address] Dr. Grace AbdulCalcium [Mass/Vol]9.5 mg/dLNormal8.5-10.1[facility] Comment on above:Performed By: #### CVDTBH #### [facility] [address] [place] [address] Dr. Grace AbdulChloride [Moles/Vol]99 mmol/XAgzrzv52-875PcbMercy Health St. [facility] Comment on above:Performed By: #### CVDTBH #### [facility] [address] [place] [address] Dr. Grace AbdulCO2 [Moles/Vol]28.1 mmol/LIrvtcx21.0-32.0[facility] Comment on above:Performed By: #### CVDTBH #### [facility] [address] [place] [address] Dr. Grace AbdulCreatinine [Mass/Vol]1.25 mg/dLCritically high0.55-1.02The [facility] DaytonComment on above:Performed By: #### CVDTBH #### [facility] [address] [place] [address] Dr. Grace RichardGFR-AF AUJODZTA44 mL/min/1.53v8Xqukorgqin low>=60The [facility] DaytonComment on above:Performed By: #### CVDTBH #### [facility] [address] [place] [address] Dr. Grace RichardGFR-NON AF ICKTKEJO17 mL/min/1.45t3Epjfyzgdjj low>=60The [facility] DaytonComment on above:Performed By: #### CVDTBH #### [facility] [address] [place] [address] Dr. Grace AbdulGlobulin (S) [Mass/Vol]2.7 g/dLNoAdena Pike Medical CenterComment on above:Performed By: #### CVDTBH #### [facility] [address] [place] [address] Dr. Grace AbdulGlucose [Mass/Vol]131 mg/dLCritically qjcm44-642Nxm [facility] DaytonComment on above:Performed By: #### CVDTBH #### [facility] [address] [place] [address] Dr. Grace AbdulPotassium [Moles/Vol]4.1 mmol/LNormal3.5-5.1[facility] Comment on above:Performed By: #### CVDTBH #### [facility] [address] [place] [address] Dr. Grace AbdulProtein [Mass/Vol]6.5 g/dLNormal6.4-8.2[facility] Comment on above:Performed By: #### CVDTBH #### [facility] [address] [place] [address] Dr. Grace AbdulSodium [Moles/Vol]135 mmol/LCritically bup314-507Ctb [facility] DaytonComment on above:Performed By: #### CVDTBH #### [facility] [address] [place] [address] Dr. Grace AbdulUrea nitrogen [Mass/Vol]33.0 mg/dLCritically high7.0-18.0The [facility] DaytonComment on above:Performed By: #### CVDTBH #### [facility] [address] [place] [address] Dr. Grace AbdulUrea nitrogen/Creatinine [Mass ratio]26.4 mg/mgNoAdena Pike Medical CenterComment on above:Performed By: #### CVDTBH #### [facility] [address] [place] [address] Dr. Grace AbdulURINE MICROSCOPIC ONLYon 07-30-5204CHSVFTECRUHA SEENNormalNONE SEENMercy Health St. [facility] HospitalComment on above:Performed By: #### CBC #### [facility] [address] [place] [address] Dr. Grace Bella identified Cx Nom (U)NOT INDICATEDNoalThGalion HospitalComment on above:Performed By: #### CBC #### [facility] [address] [place] [address] Dr. Grace Alexandra SEENNormalNONE SEENMercy Health St. [facility] HospitalComcorewell health reed city hospital on above:Performed By: #### CBC #### [facility] [address] [place] [address] Dr. Grace Sood LM Nom (Urine sed)NONE SEENNormalNONE SEENThe [facility] DaytonComment on above:Performed By: #### CBC #### [facility] [address] [place] [address] Dr. Grace Goddardthelial cells LM Ql (Urine sed)FEWAbnormalNONE SEEN /RAREThe [facility] DaytonComment on above:Performed By: #### CBC #### [facility] [address] [place] [address] Dr. Grace Snyder SEENNormalNONE SEENMercy Health St. [facility] HospitalComcorewell health reed city hospital on above:Performed By: #### CBC #### [facility] [address] [place] [address] Dr. Grace MontoyaArswsWHK0-2Vwpmeg3-9Mdx [facility] DaytonComcorewell health reed city hospital on above:Performed By: #### CBC #### [facility] [address] [place] [address] Dr. Grace AbdulWBC0-2AbnormalNONE [address] [facility] HospitalComment on above: Performed By: #### CBC #### [facility] [address] [place] [address] Dr. Grace AbdulXR CHEST 1 Von 16-24-6292OE CHEST 1 VEXAMINATION: XR CHEST 1 V [...] Electronically authenticated by: KRANTHI CONNORS Date: 2021-09-13 13:19[facility] SystemCERV SP W/OBLS/FLEX/EXT 6 OR >on 33-67-7796AWCQ SP W/OBLS/FLEX/EXT 6 OR >STUDY: CERV SP W/OBLS/FLEX/EXT 6 OR >; 12/12/2020 9:40 am INDICATION: NECK PAIN. COMPARISON: None. ACCESSION NUMBER(S): [id number] ORDERING CLINICIAN: Aiden Younger TECHNIQUE: AP, lateral, [...] acute findings. Dense left carotid artery calcifications.NormalSt. [facility] Vital Signs Date TimeVital SignValuePerforming YnvkwiivwHzlqosgn44-79-7492 11:32-0400Body yoouqt338.3 cmArmando Thayer DO Work Phone: [facility]TX Qwgnzbioal83-69-1137 11:32-0400Body mass index (BMI) [Ratio]34.28 kg/o9Yzwqcyrmario Thayer DO Work Phone: noTX Fzhorestnd81-72-8534 11:32-0400Body raugjw63.39 kgArmando Thayer DO Work Phone: noSaint Francis Medical CenterAeepxdhmwi46-50-0876 11:32-0400Diastolic blood owhdfluq91 mm[Hg]Armando Pattersoner DO Work Phone: [facility] HospitalKeocuxnzvl52-74-0684 11:32-0400Systolic blood xmhammth594 mm[Hg]Armando Thayer DO Work Phone: [facility] HospitalPhhzefkdlc35-80-8126 12:51-0400Diastolic blood guaafonx86 mm[Hg]Carolyn Vanegas MD Work Phone: [facility]08-01-2023 12:51-0400Heart rate67 /min Carolyn Vanegas MD Work Phone: [facility]08-01-2023 12:51-0400Systolic blood cepcahkv294 mm[Hg]Carolyn Vanegas MD Work Phone: [facility]03-24-2023 14:24-0400Diastolic blood mm[Hg]Marty Dozier DO Work Phone: [facility]03-24-2023 14:24-0400Heart rate72 /min Marty Dozier DO Work Phone: [facility]03-24-2023 14:24-0400Systolic blood fbplpfyu943 mm[Hg]Marty Dozier DO Work Phone: [facility]03-24-2023 14:22-0400Body tzfabh948.4 cmPhisofia Dozier DO Work Phone: [facility]03-24-2023 14:22-0400Body zsgedp50.39 kgPhisofia Dozier DO Work Phone: [facility]03-24-2023 14:22-5047FoZ4% (BldA) [Mass fraction]99 %Marty Dozier DO Work Phone: [facility] Encounters Encounter DateEncounter TypeCare ProviderFacilityStart: 84-83-2860cflefdmyyr Jacinta TannaFacility:[facility] [place]vueStart: 11-14-2024 End: 95-91-9295clvqwwupicJqggko TannaFacility:EU [place]vueStart: 11-14-2024 End: 45-99-6355Iszfqrz encounter procedureLauren Mercedes [facility] start: 10-10-2024 End: 04-27-1587yqunsfnqpzBtbvm M. BillieKimacility:FTMCStart: 10-10-2024 End: 80-13-8289gpuhltsvdmMxblh MLisette LueFacility:EU [place]vueStart: 10-10-2024 End: 16-88-8431Ixjgyjp encounter Kira Calix [facility] start: 10-01-2024 End: 08-85-1606mcgdhizqzfXlqxiyw Vytautas Giedraitis MDFacility:[facility] [place] Start: 23-88-8556jbzzjbpogfWalncs TannaFacility:EU [place]kyStart: 09-22-2024 End: 23-05-3018Ayxodvj encounter procedureGalina Bach MD-Lab [facility] Work Phone: Start: 09-22-2024 End: 80-79-4031idsrdzczyrWfmeaqv [facility] Work Phone: Start: 06-18-2024 End: 56-83-9488kndmkhujafHpvsagt Vytautas Giedraitis MDFacility:[facility] [place] Start: 05-28-2024 End: 64-34-9642jsevkdghbaVlgntfm Vytautas Giedraitis MDFacility:[facility] [place] Start: 04-30-2024 End: 70-59-6793qvvevhxnwmMyuomns Vytautas Giedraitis MDFacility:[facility] [place] Start: 02-06-2024 End: 73-16-9016mncezfoqqiExmgerm Vytautas Giedraitis MDFacility:[facility] [place] Start: 01-16-2024 End: 54-87-3233gkvciyxnvbTvskvym Vytautas Giedraitis MDFacility:[facility] [place] Start: 12-06-2023 End: 39-98-0723Ldywojw encounter procedureArmando Thayer DO Work Phone: [facility] OBComment on above:Encounter for gynecological examination without abnormal finding; Encounter for Papanicolaou smear of vagina; Breast cancer screening by mammogramStart: 12-06-2023 End: 09-44-1740Dmjzwqu encounter statusArmando Thayer DO Work Phone: [facility] HealthcareStart: 12-06-2023 End: 90-26-5790gnfnhafoiwLBVKPNR D BRUNERNot AvailableStart: 08-08-2023 End: 03-59-6911jzpmrlsrmlBDCOLETTE BRIGHT AvailableStart: 09-21-2022 End: 71-86-4714dqzeeqgtncFGLPMHI M HOYFacility:[facility]woodtart: 09-21-2022 End: 08-68-7910Oskwnbx encounter procedureCarolyn Vanegas MD Work Phone: NeurosurgeryComment on above:Obesity, Class I, BMI 30- 34.9 (Primary Dx); Spinal stenosis, lumbar region with neurogenic claudicationStart: 08-19-2022 Chart abstractingNone (Historical)NeurologyStart: 29-09-7924jqgaxphubd NARENDRANATH LAKSHMIPATHY .Facility:V9Idvme: 07-16-2022 End: 07-55-4130iulhmgzoluIU GALINA PALMER .Facility:C2Tjoju: 06-22-2022 End: 09-13-1659sglxqiaueeWTQGPYDLOZEY LAKSHMIPATHY .Facility:Q8Aidiu: 06-15-2022 End: 77-97-1320usittebwysQDTAICNKRSVE LAKSHMIPATHY .Facility:D6Aqpdy: 06-10-2022 ambulatoryDR GALINA PALMER .Facility:F7Xbnat: 06-01-2022 End: 70-09-7146cxjdtokycxACMBZJIWVVPL LAKSHMIPATHY .Facility:S7Itiqx: 05-14-2022 End: 45-53-9702pkixbkvlinSAIXANS G MENDISFacility:[facility] Start: 05-14-2022 End: 10-98-8637Pokzxgk encounter procedurePhisofia Dozier DO Work Phone: Spfor MedicineComment on above: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); Back pain, lumbosacral; Chronic sacroiliac joint pain; Lumbar spondylosis; Scoliosis of lumbar spine, unspecified scoliosis typeStart: 05-13-2022 End: 32-79-2337xtumegwmlmSONQLLQRUNMK LAKSHMIPATHY .Facility:G9Mmvdq: 04-13-2022 End: 61-60-9892ryfvkemnddTK NIKO S BECKWITH .Facility:F6Xxggq: 04-06-2022 End: 49-22-3148wrrzcdzomcQF NIKO S BECKWITH .Facility:O2Cljuf: 04-05-2022 End: 29-42-7200rostjudyacNX GALINA HOY .Facility:Q5Hirpk: 04-04-2022 End: 34-59-9898vxsmzppbkiME MATTHEW MEYER .Facility:X0Esuus: 03-11-2022 End: 22-78-7416zojfdllavbIN GALINA HOY .Facility:O5Cnjog: 02-09-2022 End: 11-87-2841swjmnlrvsgGM GALINA HOY .Facility:B8Vhpgw: 01-28-2022 End: 34-30-0595zobfrbylpbPDFJ SEQUEIRA .Facility:L3Qkpbw: 01-12-2022 End: 30-59-5375plphpnqloqMH NIKO S BECKWITH .Facility:J2Jjerb: 12-31-2021 End: 80-06-6231bawctrajviJULN SEQUEIRA .Facility:L9Ucxjc: 78-39-5605byqzxdofdfNE GALINA HOY .Facility:B7Ktmza: 12-11-2021 End: 62-71-2018owtgbhurrjCK GALINA HOY .Facility:L8Phbqd: 11-25-2021 End: 61-22-2215auzpbzqjqnMS GALINA HOY .Facility:A6Omdto: 11-24-2021 End: 85-48-0501zwflnhisdsNS GALINA HOY .Facility:V2Pogir: 11-23-2021 End: 44-42-8377gtchwyvbtnDT GALINA HOY .Facility:G3Ioyov: 11-15-2021 End: 80-61-2115Mbkfkockgj and management of inpatientSBREANNA BERNALWADFacility:H1 Start: 11-11-2021 End: 12-18-9180duvlcsapjjWVCIYO RODRIGUEZ .Facility:M5Qrecn: 09-30-2021 End: 90-94-9292zcabqkrmwxHN NIKO BECKWITH .Facility:T8Pzlhb: 09-13-2021 End: 94-61-4763cxlrueofudCORZPG RODRIGUEZ .Facility:O2Pwvfx: 09-12-2017 End: 68-48-2449Tbgirsz encounterDEFAULT PHYSICIANFacility:[facility] Procedures DateProcedureProcedure DetailPerforming ClinicianAppendix absent (finding)Sharon Lue ArthroscopyKathy Lue Capsulotomy of posterior lens capsuleLauren Mercedes CholecystectomyLauren Mercedes HysterectomyKathy Lue Laboratory test result abnormalLaboratory test result abnormalKathy Lue Left breast structure (body structure)Sharon Lue Comment on above:benign tumorRight breast structure (body structure)Jacinta Mercedes TonsillectomyKathy Lue Total knee replacementLasera Mercedes Urinary bladder structure (body structure)Sharon Lue Plan of Treatment DateCare ActivityDetailAuthorStart: 12-10-2025 End: 07-08-2566Szygypd encounter oltybpado95/20/2026 11:30 AM EDT Office Visit [facility] [address] [place] [id number] Armando Thayer, DO [address] [place] [address] [facility] SWS OBStart: 87-88-3274Qvwebzog identified in Urine by CultureUrine CultureSamaritan North Health Centertart: 26-04-8375Phimr cultureSamaritan North Health Centertart: 95-34-0552Rdvpsstwy vaccination Influenza Vaccine (#1)[facility] HealthcareStart: 53-56-4738Jhnqhoalk vaccination INFLUENZA (#1)[facility]: 09-78-0986SYYDT-19 VACCINE (6 - Moderna series)COVID-19 VACCINE (6 - Moderna series)[facility]: 02-21-2022 ADVANCE DIRECTIVE DISCUSSIONADVANCE DIRECTIVE DISCUSSIONSt. Mary's Medical Centertart: 04-36-2020NHSTCFGDFW ASSESSMENTDEPRESSION ASSESSMENTSt. Mary's Medical Centertart: 50-54-9928Hnjnkfuighcm Vaccine: 65+ Years (2 of 2 - PPSV23 or PCV20)Pneumococcal Vaccine: 65+ Years (2 of 2 - PPSV23 or PCV20)[facility] HospitalStart: 11-[facility]-2017 PNEUMOCOCCAL: 65+ (2 - PPSV23 if available, else PCV20)PNEUMOCOCCAL: 65+ (2 - PPSV23 if available, else PCV20)[facility]: 33-45-4595EUMLFFRLJIAT: 65+ (2 - PPSV23 or PCV20)PNEUMOCOCCAL: 65+ (2 - PPSV23 or PCV20)[facility] Start: 78-69-4521GFEOBFQA VACCINE (2 of 3)SHINGRIX VACCINE (2 of 3)[facility]: 52-06-9583KDFC DENSITYBONE DENSITYSt. Mary's Medical Centertart: 04-30-1984 DIABETES SCREENDIABETES SCREENSt. Mary's Medical Centertart: 59-18-2067Grosl microalbumin profileDTAP,TDAP,TD (1 - Tdap)[facility] HealthIGP,rfxAptima HPV all,16/18,45IGP,rfxAptima HPV all,16/18,45 Pathology and Cytology Routine Encounter for Papanicolaou smear of vagina Ordered: 12/06/2023[facility] Work Phone: comment on above:Ordered: 12/06/2023 Immunizations Immunization DateImmunizationNotesCare CioyciqbYfpvkjrc86-74-2385efusrn vaccine recombinantLasera Cooleya [facility]06-02-2025tetanus toxoid, reduced diphtheria toxoid, and acellular pertussis vaccine, adsorbedLauren Mercedes [facility]10-14-2024influenza virus vaccine, unspecified formulationLauren Mercedes [facility]09-04-2023influenza virus vaccine, unspecified formulationLauren Mercedes [facility]08-12-2023SARS-CoV-2 (COVID-19) mRNAMUL.ORD!t48958Ogmqcr Tanna [facility] CenterComcorewell health re[facility] on above:Result Comment: 2024-11-14: OJB6729-80-3279Cckdukd Bivalent Booster VaccinationWilliamyrna Thayer DO Work Phone: [facility] HospitalComcorewell health re[facility] on above:Result Comment: 2024-11-14: VMM4351-69-8332Qeuquobib, injectable, Madin [place] Canine Kidney, preservative free, quadrivalentPhillip Mendis DO Work Phone: [facility] HealthTlcgor91-08-2133ltnrrekkq virus vaccine, unspecified formulationWilliam Flaca DO Work Phone: [facility]04-14-2022SARS-CoV-2 (COVID-19) mRNA-5335 vaccineLauren Mercedes [facility] on above:Result Comment: 2024-11-14: TBS4158-61-0654GHUC-DqB-1 (COVID-19) mRNA-1273 vaccineLauren Mercedes [facility]10-08-2021influenza virus vaccine, unspecified formulationPhillip Mendis DO Work Phone: [facility] HealthNxsxfi11-55-0267filmcdpho, unspecified formulationLasera Cooleya [facility]02-15-2021SARS-CoV-2 (COVID-19) mRNA-1273 vaccineLasera Cooleya [facility]01-18-2021SARS-CoV-2 (COVID-19) mRNA-1279 vaccineLasera Cooleya [facility]10-08-2020influenza virus vaccine, unspecified formulationLasera Long [facility]10-08-2020Seasonal trivalent influenza vaccine, adjuvanted, preservative freePhillip Yalobusha General Hospitalis DO Work Phone: [facility] HealthEssmro10-88-5700bnsgel vaccine, livePhillip Yalobusha [facility] Hospitalis DO Work Phone: [facility] HealthDhcdtb54-57-2536tmabhhmobjoo conjugate vaccine, 13 valentPhillip Yalobusha General Hospitalis DO Work Phone: [facility] Payers DatePayer CategoryPayerPolicy [id number] Health [id number] 2005Medicare [id number] 2005Unknown1960Medicare [id number] [id number] 2.16.840.1.404481.3.57[id number] 2.16.840.1.172891.3.57[id number] 2.16.840.1.379400.3.57[id number] 2.16.840.1.696039.3.57[id number] 2.16.840.1.695751.3.57[id number] 2.16.840.1.897294.3.57[id number] 2.16.840.1.608714.3.579.2.95155-34-6975Nwoxybj2422173 2.16.840.1.539365.3.579.2.15193-39-0918Atmrxbj3224515 2.16.840.1.163893.3.579.2.71739-85-5996Dzhbjre3970160 2.16.840.1.572070.3.579.2.14290-93-1041Udvhsms8819054 2.16.840.1.559696.3.579.2.23378-73-3538Clxyhsr9766990 2.16.840.1.319111.3.579.[id number] 2.16.840.1.122145.3.579.2.[id number] 2.16.840.1.994258.3.579.2.04872-81-5838Qaohlup2726208 2.16.840.1.414575.3.579.2.26102-76-9009Luupcfk2321788 2.16.840.1.917348.3.579.2.14043-49-3990Cpiwaix7783246 2.16.840.1.990575.3.579.2.56594-23-1334Vfhrzfo2013142 2.16.840.1.876763.3.579.2.1[id number] 2.16840.1.438139.3.579.2.56879-95-6568Fuahcrj4059240 2.16840.1.264738.3.579.2.95382-47-9095Wjcnszs3674355 2.16840.1.423733.3.579.2.09821-70-8569Rxpjhem8850778 2.16840.1.893547.3.579.2.23692-18-4225Xbrerfr5317731 2.16.840.1.662115.3.579.2.36739-35-7554Ejtxkpw5099987 2.16840.1.442771.3.579.2.57639-67-8262Peiqhxg5114809 2.840.1.469394.3.579.2.72740-47-3628Jwdlksd2104500 2.16.840.1.143520.3.579.2.392131-93-6611Ulwjbsl3190199 2.16.840.1.755527.3.579.2.132916-16-3076Btkpdvb1856024 2.16.840.1.534382.3.579.2.494810-76-5818Puqwyna878167771 2.16.840.1.341102.3.579.2.53511-14-6048Fpaworq755236013 2.16.840.1.099389.3.579.2.91433-26-0818Lhsiisj697935718 2.16.840.1.637342.3.579.2.29526-29-0461Hjnqwcl315964694 2.16.840.1.325098.3.579.2.3[id number] 2.16.840.1.846750.3.579.2.32544-46-6376Nkloany873992323 2.16.840.1.505694.3.579.2.91213-11-6488Khlalaj59099367 2.16.840.1.943602.3.579.2.05352-20-8066Dlxgwmf15143595 2.16.840.1.010571.3.579.2.06612-62-3644Domzlqj30168066 2.16.840.1.292963.3.579.2.80272-74-7194Qohyusw19470163 2.16.840.1.477863.3.579.2.46148-81-1895Atkjinu44182358 2..840.1.913055.3.579.2.10855-99-5581Wriqkpd95441719 2.16.840.1.112940.3.579.2.218Pvycisq27582041 2.840.1.045216.3.579.2.531 Social History DateTypeDetailFacilityStart: 05-14-2022 End: 04-24-6307Wlvqhbp smoking status NHISNever smoked tobaccoSumma Health Start: 05-14-2022 End: 59-58-0257Lrnvdnq use and exposureSmokeless tobacco non-userSt. Mary's Medical Centertart: 05-14-2022 End: 39-79-1394Eockthe intakeLifetime non-drinker (finding)[facility] Start: 19-08-8056Soy Assigned At BirthNot on fileSt. Mary's Medical Centertart: 09-21-2022 End: 82-15-5754Oiolwsk of Social functionSt. Mary's Medical Centertart: 09-21-2022 End: 48-61-8447Cpgdzna use panelSumma HealthAdult Depression Screening Ellrkhhcok3Gemsmjbke ClinicHow often to you have a drink containing alcohol? NeverNOMS HealthcareTobacco smoking status NHISUnknown if ever smokedClermont County Hospital Work Phone: Start: 05-20-6162HfoVacvhw (finding)[facility] Centertart: 75-35-7061Xsh Assigned At [facility] Centerexual OrientationExec[facility] Clinical Notes 09-30-2021 to 11-14-2024 Note Date & JrnwIncxLoqnjkwo98-58-1681 Hospital Discharge instructions Patient Education 11/14/2024 16:17:11 [...] your health care provider. General instructions Take nhww-aok-edakitr and prescription medicines only as told by [...] provider. Document Revised: 10/27/2020 Document Reviewed: 10/27/2020 [employer] Patient Education 2023 Smarkets. Follow Up Care 10/10/2024 10:34:03 With:Jacinta Long PA-C, GREGG Address: When:Within 3 Month(s) Comments:w/ BLANCA [facility] 09-24-2025 NotePatient Education Obstetrics and [...] health care provider. General instructions ??? Take yhrx-xlh-eyqzzsy and prescription medicines only as told by [...] you drink, and whe (more content not included)...[facility]08-20-2025 Hospital Discharge instructions Patient Education 10/10/2024 10:31:42 [...] your health care provider. General instructions Take piss-ylw-vgqoywu and prescription medicines only as told by [...] provider. Document Revised: 10/27/2020 Document Reviewed: 10/27/2020 [employer] Patient Education 2023 Smarkets. 10/10/2024 10:31:41 Kegel Exercises Kegel Exercises Kegel [...] provider. Document Revised: 06/18/2021 Document Reviewed: 06/18/2021 [employer] Patient Education 2023 Smarkets. 10/10/2024 10:31:39 Hematuria, Adult Hematuria, Adult Hematuria [...] Follow these instructions at home: Medicines Take bxty-hlh-vdfvuhq and prescription medicines only as told by [...] or the blood stops without treatment. Take abin-cef-tmmyadj and prescription medicines only as told by your health care provider. Drink enough fluid to keep your urine pale yellow. This information is not intended to replace advice given to you by your health care provider. Make sure you discuss any questions you have with your health care provider. Document Revised: 10/08/2020 Document Reviewed: 10/08/2020 [employer] Patient Education 2023 Smarkets. Follow Up Care 10/04/2024 10:42:48 With:Yogi MEANS, Sharon Patel, URL, URO Address: [address], [place] [phone] When: Unknown Comments:1-2 mos w/ PVR (new med) [facility] 08-20-2025 NoteUrology Office/Clinic Note Chief Complaint referral utis, retention HPI Staff Referral from Dr. Palmer for urinary retention. Urine culture @ [facility] 09/21/24 - negative for growth GEORGINA @ [facility] 09/24/24 DR Palmer did some tests [...] retention, and exacerb (more content not included)... [facility] SystemComment on above:Result Comment: Electronically Signed By: Sharon Calix MD\.br\Date and Time Signed: 10/10/24 11:06 EDT\.br\Electronically Co-Signed By: Holly Canales\.br\Date and Time Co-Signed: 10/10/24 10:32 [id number] NotePatient Education Obstetrics and Gynecology Overactive Bladder, [...] health care provider. General instructions ??? Take zxpt-dag-ghiebch and prescription medicines only as told by [...] you drink, and whe (more content not included)...[facility]10-15-2024 History of Present illness Narrative* Marlena Person MA - 12/06/2023 11:30 AM EDT Images from the original note were not included. Armando Thayer, DO Obstetrics and Gynecology Alexa Delgado 1940 12/06/23 [id number] Yearly Wellness Exam Chief Complaint Patient presents with Gynecologic Exam Medicare yearly. LMP: SUNIL BSO 1972 HRT: None Last pap 12-02-21 neg. Last mammogram 12-05-23 [facility] ordered by PCP. Denies breast or urinary [...] Oil) 1000 MG capsule as directed Orally Bpkwvvevyjt-Qxyutckyaoo-NIZ (Triple Flex) 500-400-125 MG tablet 1 tablet with meals Orally twice daily for 30 days HYDROcodone-acetaminophen ([place]) 5-325 MG tablet 1 tablet as needed [...] excision of lesion on leg ( benign) [place] CAPSULOTOMY POSTERIOR CAPSULAR RELEASE KNEE 05/15/2013 Yttrium aluminum garnet (YAG) capsulotomies [place] KNEE SCOPE,CLEAN/DRAIN 10/1998 Dr. De Leon [place] LAMNOTMY INCL W/DCMPRSN NRV ROOT 1 INTRSPC CERVC 12/20/2006 L4-5 Hemilaminectomy / Discectomy - Dr. Arshad SALPINGOOPHORECTOMY Left 1981 SKIN SURGERY 12/13/2008 excision neoplasm LT leg TONSILLECTOMY 1958 TOTAL ABDOMINAL HYSTERECTOMY 1973 SUNIL RSO TOTAL KNEE ARTHROPLASTY Right 09/22/2017 Dr. de leon Past Medical History: Diagnosis Date [facility] Angina p[facility]is [facility]) 11/2019 hx of hospitalization Melchor's palsy 1960 Breast nodule Cataract 2012 COVID-19 10/2021 hx of hospitalization History of medical problems 1982 MMK LSO HTN (hypertension) ([facility]) Hx of completed stroke hx of stroke at pweugrtajx0766/ TIA 1984 Kidney disease remission Kidney disease hx of hospitalization Lumbar disc herniation 2007 L4 L5 Miscarriage x3 Pelvic fracture ([facility]) 2018 hx of hospitalization x4 Status post laser cataract surgery of left eye 2014 Stroke ([facility]) 1973 at childbirth TIA (transient [...] costovertebral angle tenderness, no obvious scoliosis/kyphosis. 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 documented in this encounterSaint Luke's HospitalTntlrjxsem35-43-3165 NoteHNO ID: [id number] Author: Carolyn Vanegas MD Service: ? Author [...] Physical Health Percentile 1 (more content not included)...[facility]08-01-2023 Instructions* Patient Instructions* Carolyn Vanegas MD [...] surgery at this time. documented in this encounterSumma Health08-01-2023 History of Present illness Narrative* Carolyn Vanegas [...] Level: 4 - Moderate documented in this encounterSumma Health07-06-2023 NoteHNO ID: [id number] Author: Kassandra Alves PA-C Service: ? Author Type: Physician Employment Programs Analyst Type: Progress Notes Filed: 08/26/2022 11:52 AM Note Text: Per Triage: Alexa Delgado is a 82 year old female that requests evaluation of spine. Per review, they have symptoms of lower back pain. Numbness/tingling right leg. Difficulty walking. Weakness Request: 1st available Referring provider: Galina Palmer MD Patient out of state: no 2nd opinion: no Prior spine surgery: yes 2006 [facility] Address: [address] [place] [address] CMT: PT Injections Tylenol Hydrocodone Studies (Reports [...] can be reviewed during the appt [facility] History of Present illness Narrative* Kassandra Alves [...] no Prior spine surgery: yes 2006 [facility] Address: [address] [place], [place] [id number] CMT: PT Injections Tylenol Hydrocodone Studies (Reports [...] facility where the MRI/CT/myelogram was completed: [facility] Address: [address] [place] [address] MRI/CT/myelogram viewable in Epic: No If not, please provide [phone] to fax in imaging reports for review. [...] was completed PT Injection [facility] Address: [address] [place] [address] Have you tried any other kinds of [...] surgery was completed: [address] [facility] Address: [address] [place] [address] Additional Comments documented in this encounterSumma Health06-29-2023 NoteHNO ID: [id number] Author: Micheal Bowman Service: ? Author Type: [...] facility where the MRI/CT/myelogram was completed: [facility] Address: [address] [place] [address] MRI/CT/myelogram viewable in Epic: No If not, please provide [phone] to fax in imaging reports for review. [...] physical therapy was completed PT Injection [facility] Address: [address] [place] [address] Have you tried any other kinds of [...] where the surgery was completed: 2006 [facility] Address: [address] [place] [address] Additional Comments [place] [address]-26-2023 NotePROCEDURE: XR HIP RT 2 3V W [...] Electronically authenticated by: HERMES SUAREZ Date: 2022-07-16 11:28[facility]03-24-2023 NoteHNO ID: [id number] Author: Marty Dozier, DO Service: ? Author Type: Physician Type: Progress Notes Filed: 05/15/2022 10:02 PM Note Text: [facility] - [facility] Spine [...] Ratio: R>L low back Current Treatment: Medications [place] 5-325 mg BID - helps Diclofenac 75 [...] but still has pain -01/28/22 Noemi Sequeira DIRECTOR OF PRODUCT MANAGEMENT: BL Lumbar erector spinae TPI (0.125% Marcaine, [...] ongoing as of 04/17/21 -03/08/21 Noemi Sequeira DIRECTOR OF PRODUCT MANAGEMENT: Left rhomboid TPI (0.125% Marcaine, 40 mg Kenalog) -02/03/21 LESI - moderate relief for 4 days Prior spine surgery: -2006 L4-5 Discectomy Previously treated by: -[facility], previously Dr. Niko Beckwith [...] today. She has an evaluation at the [facility] at [facility]. RECOMMENDATIONS: We will see the patient back in the office after she undergoes evaluation there to discuss her treatment plan thereafter. We will see the patient back in the office in approximately four weeks' time or sooner if needed. PMH: Lumbar scoliosis Depression on Negrita (more content not included)...[facility] 05-14-2022 History of Present illness Narrative* Marty Dozier, - 05/14/2022 3:15 PM EDT Images from the original note were not included. [facility] - Medical [...] Ratio: R>L low back Current Treatment: Medications [place] 5-325 mg BID - helps Diclofenac 75 [...] but still has pain -01/28/22 Noemi Sequeira DIRECTOR OF PRODUCT MANAGEMENT: BL Lumbar erector spinae TPI (0.125% Marcaine, [...] ongoing as of 04/17/21 -03/08/21 Noemi Sequeira DIRECTOR OF PRODUCT MANAGEMENT: Left rhomboid TPI (0.125% Marcaine, 40 mg Kenalog) -02/03/21 LESI - moderate relief for 4 days Prior spine surgery: -2006 L4-5 Discectomy Previously treated by: -[facility], previously Dr. Niko Beckwith [...] today. She has an evaluation at the [facility] tomorrow at the [facility]. RECOMMENDATIONS: We [...] 04/04/22 CT abd/pelvis with IV contrast, [facility], report: Abdominal wall: Old healed left pelvis fractures. Degenerative changes and scoliosis of the lumbar spine. IMPRESSION: No acute abdominal pathology. No acute inflammatory process. No obstructing urinary tract stone. No evidence for bowel obstruction. 11/15/21 XR abd, [facility], report: No acute osseous abnormality. There is moderate dextrocurvature of the lumbar spine. 05/08/2021 XR right hip/pelvis, [facility], report: Rotatory dextro scoliosis of the lumbar [...] 2022 TIME: 3:15 PM documented in this encounterSumma Health03-23-2023 NoteCONSULTATION CONSULTATION DATE: 05/13/2022 TO: Dr. Palmer [...] mg at h.s., diclofenac 75 mg b.i.d., [place] 5 mg b.i.d. EXAM: Notable for the [...] today. She has an evaluation at the [facility] tomorrow at [facility]. RECOMMENDATIONS: We will see the patient back in the office after she undergoes evaluation there to discuss her treatment plan thereafter. We will see the patient back in the office in approximately four weeks' time or sooner if needed.[facility] [id number] NoteCONSULTATION CONSULTATION DATE: 04/06/2022 CHIEF COMPLAINT: Low [...] to kidney dysfunction also. The patient takes [place], however, is very controlled and limits it to the point of detriment. Education was done. The patient was instructed to take the [place] to a b.i.d. to t.i.d. basis. The [...] b.i.d. basis. The patient may increase the [place] to 5/325 t.i.d. We will schedule the [...] to the procedure. CC: Galina Palmer M.D.[facility] [id number] NoteCONSULTATION CONSULTATION DATE: 03/11/2022 HISTORY OF PRESENT [...] gave improvement for 24 hours. Medications include [place] 5/325 b.i.d., diclofenac 75 mg b.i.d., citalopram [...] back pain. PLAN: We will refill her [place] 5/325 b.i.d. We will prescribe her Buderer cream with gabapentin, ketorolac and prilocaine/lidocaine to be placed over her right knee. We will trial Requip 0.25 mg q.h.s. We will see the patient in the clinic in three months' time unless otherwise indicated. Patient agrees with the plan.[facility] DaytonFpbiszkl20-45-8869 NoteCONSULTATION CONSULTATION DATE: 01/28/2022 HISTORY OF PRESENT [...] daily which decreases her pain. Medications include [place] 5/325 b.i.d., Flexeril 5 mg b.i.d., diclofenac [...] does consent to. We will refill the [place] 5/325 b.i.d. We will pre-authorize for a right genicular nerve block under fluoroscopy. Patient will follow up in the clinic thereafter.[facility] [id number] NoteCONSULTATION PROCEDURE DATE: 01/28/2022 PREOPERATIVE DIAGNOSIS: Bilateral [...] will be followed up in the office.[facility] DaytonWdqjtcvi16-92-2243 Note CONSULTATION CONSULTATION DATE: 12/31/2021 HISTORY OF [...] Current medications include diclofenac 75 mg b.i.d., [place] 5/325 b.i.d., citalopram, Flexeril and multivitamin regimen. The patient does state that she breaks her [place] in half and the most she takes [...] care and would like to move forward.[facility] [id number] NoteCONSULTATION CONSULTATION DATE: 09/30/2021 This is a very yfpafbvd95-mlqa-xon female accompanied by her returning to the [...] Current medications include diclofenac 50 mg b.i.d., [place] 5/325 b. i.d. and Tylenol. She does [...] at 25 mg q.h.s. Refill for her [place] 5/325 b.i.d. will be sent as well. The patient is to continue with her vitamin regimen which she is currently compliant with, as well as heat application and pool exercises. The patient will be followed up in the office in three months' time unless otherwise indicated. The patient agrees with the plan of care.[facility] Evaluation + Plan note Future Appointments Appointment Date:11/14/2024 03:00:00 PM Scheduled Provider:Jacinta Long PA-C Location:[facility] Appointment Type:URO Office Visit [facility] evaluation + Plan note Future Appointments Appointment Date:02/26/2025 03:10:00 PM Scheduled Provider:Jacinta Long PA-C Location:[facility] Appointment Type:URO Office Visit [facility] evaluation note* Diagnosis Chronic bilateral low back pain with right-sided sciatica- Primary Back pain, lumbosacral Lumbago Chronic sacroiliac joint pain Disorders of sacrum Lumbar spondylosis Lumbosacral spondylosis without myelopathy Scoliosis of lumbar spine, unspecified scoliosis type [facility] Spinal stenosis, lumbar region with neurogenic claudication- Primary Spondylolisthesis, lumbar region Other idiopathic scoliosis, lumbar region [facility] Diagnosis Obesity, Class I, BMI 30-34.9- Primary Obesity, unspecified Spinal stenosis, lumbar region with neurogenic claudication [facility] Diagnosis Encounter for gynecological examination without abnormal finding Encounter for Papanicolaou smear of vagina Breast cancer screening by mammogram [facility] noteNo assessment information availableClermont [facility] Work Phone: Hospital course Narrative No data available for this section [facility] progress note No data available for this section [facility] reason for referral (narrative)No reason for referral information availableClermont County Hospital Work Phone: Summary Purpose Family History [...] Referral SpecialtyDiagnoses / ProceduresReferred By ContactReferred To [facility] Diagnoses Spinal stenosis, lumbar region with neurogenic claudication Procedures CONSULT TO [facility] OFFICE/OUTPATIENT [facility] 60-74 MINUTES Carolyn Vanegas MD [address] [place] [address] Referral IDStatusReasonStart DateExpiration DateVisits RequestedVisits [id number] Review PCP Requested Referral / Additional Source Comments INFORMATION SOURCE (unrecogn ized section and content) DATE CREATED AUTHOR 09/13/2017 [facility] DATE CREATED AUTHOR AUTHOR'S ORGANIZ ATION 12/13/2020 [facility] DATE CREATED AUTHOR AUTHOR'S ORGANIZ ATION 07/30/2022 [facility] DATE CREATED AUTHOR AUTHOR'S ORGANIZ ATION 09/22/2022 [facility] DATE CREATED AUTHOR AUTHOR'S ORGANIZ ATION 12/08/2023 [facility] DATE CREATED AUTHOR AUTHOR'S ORGANIZ ATION 10/10/2024 [facility] DATE CREATED AUTHOR AUTHOR'S ORGANIZ ATION 10/13/2024 [facility] DATE CREATED AUTHOR AUTHOR'S ORGANIZ ATION 11/16/2024 [facility] Source Comments (unrecognize d section and content) In the event this informatio n is protected by the Federal Confidentiality of Alcohol and Drug Abuse Patient Records regulations: The Federal rules restrict any use of the information to criminally investigate or prosecute any alcohol or drug abuse patient.[facility] HealthIn the event this information is protected by the Federal Confidentiality of Alcohol and Drug Abuse Patient Records regulations: The Federal rules restrict any use of the information to criminally investigate or prosecute any alcohol or drug abuse patient.[facility] HealthIn the event this information is protected by the Federal Confidentiality of Alcohol and Drug Abuse Patient Records regulations: The Federal rules restrict any use of the information to criminally investigate or prosecute any alcohol or drug abuse patient.[facility] Reason for Visit (unrecogniz ed section and content) ReasonCommentsNew Patient EvaluationLow Back PainReasonCommentsNew PatientReason CommentsGynecologic ExamMedicare yearly.LMP: SUNIL BSO 1973HRT: NoneLast pap 12-02-21 neg.Last mammogram 12-05-23 [facility] ordered by PCP.Denies breast or urinary concerns.bowel concernSome rectal bleeding with bowel movements. Denies difficulty having a bowel movement. Care Teams (unrecognized sec tion and content) Team MemberRelationshipSpecialtyStart [facility] Galina Palmer MD [address] [place] [address] PCP - [facility] Medicine05/14/22 Colette De Leon Jr., DO [address] [place] [address] ReferringOrthopedics05/03/22 Lakshmipathy, Narendranath [address] [phone] Pain Management05/14/22 Colette De Leon Jr., DO [address] [place] [address] Orthopedic05/14/22Team MemberRelationshipSpecialtyStart [facility] Galina Palmer MD [address] [place] [address] PCP - [facility] Medicine05/14/22 Colette De Leon Jr., DO [address] [facility] [address] [place] [address] ReferringOrthopedics05/03/22 Lakshmipathy, Narendranath [address] [phone] Pain Management05/14/22 Colette De Leon Jr., DO [address] [place] [address] Orthopedic05/14/22 Galina Palmer MD [address] [place] [address] ReferringFamily Medicine08/11/22Team MemberRelationshipSpecialtyStart End Glaina Palmer MD [address] [place] [address] PCP - GeneralFamily Medicine05/14/22 Colette De Leon Jr., DO [address] [facility] [address] [place] [address] ReferringOrthopedics05/03/22 ShermiPorsha santillan [address] [phone] Pain Management05/14/22 Colette De Leon Jr., DO [address] [facility] [address] [place] [address] Orthopedic05/14/22 Galina Palmer MD [address] [place] [address] ReferringFami Medicine08/11/22Team MemberRelationshipSpecialtyStart DateEnd Date Galina Palmer MD [address] [place] [address] PCP - GeneralFamily Medicine08/02/22 Team Status: Inactive [...] BE BASED ON THE PRIMARY CLINICAL RECORDS. [facility] [employer] [facility]. provides no warranty or guarantee of the accuracy or completeness of information in this document.
[2025-01-21 09:44] VITALS: BP 176/85; PULSE 87; TEMP 36.7; O2SAT 98
[2025-01-21 10:39] VITALS: PULSE 90; O2SAT 99
[2025-01-21 10:40] VITALS: BP 200/109
[2025-01-21 10:42] VITALS: BP 211/104; PULSE 92; O2SAT 97
[2025-01-21] MEDS: LIDOCAINE HCL 2% 400 MG/20 ML MDV INJ (10:42)
[2025-01-21] MEDS: BUPIVACAINE HCL 0.25% PF 25 MG/10 ML VIAL INJ (10:43)
[2025-01-21] MEDS: IOHEXOL 240 MG/ML - 10 ML VIAL INJ (10:43)
[2025-01-21] MEDS: METHYLPREDNISOLONE ACETATE 80 MG/ML VIAL INJ (10:43)
[2025-01-21] MEDS: 0.9 % SODIUM CHLORIDE 10 ML SYRINGE - SALINE FLUSH INJ (10:43)
--- NOTE | 2025-01-21 10:47 | P.ON_ITS ---
Date of procedure: 01/21/25 Pre-op diagnosis: Pain due to lumbar stenosis with neurogenic claudication Post-op diagnosis: same as pre-op Procedure: Procedure: Left L4-5, L5-S1 transforaminal epidural steroid injection Medications: Bupivacaine 0.25% 2cc, lidocaine 2% 1cc, depomedrol 80mg The patient was seen and examined in the preoperative holding area.? Informed consent was obtained and placed on the chart.? Patient was brought to the medical procedure unit and placed in the prone position where a timeout was completed verifying the correct patient, procedure site, position, and planned special equipment using sterile aseptic technique.? Under direct fluoroscopic visualization a 25-gauge Quincke tipped spinal needle was advanced to the designated neural foramen where contrast dye was injected to show adequate spread.? The needle was inserted at level left L4-5. There was no evidence of vascular or adverse uptake.? Epidural spread was appreciated.? The above- mentioned injectate was then placed in a 1.5 mL aliquot preceded by negative aspiration.? The needle was removed. The needle was inserted and the procedure repeated at level left L5-S1.? The surgery site was covered.? Patient was taken to the postprocedural recovery area and monitored for an appropriate length of time before found suitable for discharge in the accompaniment of a responsible adult. Anesthesia: Local Surgeon: Lyn Quiñones Pathology: none sent Condition: stable Disposition: no change
== END 2025-01-21 11:10 | disposition home or self-care (01) ==
PROVIDERS: PCP Family Medicine; Visit Provider Anesthesiology
DX: M48.062 Spinal stenosis, lumbar region with neurogenic claudication (principal); M54.50 Low back pain, unspecified
CPT/HCPCS: 64483; 64484; J0665; J1010; Q9966

== ENCOUNTER 2025-01-31 14:10 | Outpatient (OUT) | payer MEDICARE, SELFPAY ==
--- OUTSIDE RECORDS SUMMARY | 2025-01-31 14:16 | XMS_ITS | CCD ---
Author Organization [facility] Care Team Providers Care Industrial Aerial Installer Name Role Phone PHYSICIAN, DEFAULT Unavailable Unavailable PHYSICIAN, DEFAULT Unavailable Unavailable Haley Bright DO, George Cajetan Unavailable Galina Palmer MD Primary Care Provider Lakshmipathy, Narendranath Unavailable Haley Bright DO, George Cajetan Unavailable ESTELA ., DR MOJICA Primary Care Unavailable ESTELA ., DR MOJICA Attending Unavailable HOY ., DR MOJICA Consulting Unavailable HOY ., DR MOJICA Admitting Unavailable LAKSHMIPATHY ., PORHSA Consulting Laura vailable LAKSHMIPATHY ., NARDALLASATH Admitting [...] DR NIKO Austin Admitting Unavailable LAKSHMIPATHY ., NARROAS Consulting Laura vailable LAKSHMIPATHY ., NARDALLASATH Admitting [...] Unavailable HOY ., DR MOJICA Consulting Unavailable CAMPBELL, DR HERMES Jean Baptiste Consulting Unavailable LATANYA [...] Unavailable Galina Palmer MD Primary Care Provider [phone] Galina Palmer MD Attending Provider Ishmael [...] of OnsetReaction(s) Facility (9 sources)Codeine; Translations: [CODEINE]Drug Xhajsrj06-54-3188Akcndew, Unknown (qualifier value)[facility] (4 sources)Penicillins; Translations: [PENICILLINS]Drug Glfsspg58-91-1377Quailsr [facility] (6 sources)pregabalin; Translations: [PREGABALIN]Drug Yntgwqa06-63-8417 Intolerance, Unknown (qualifier value)[facility] Work Phone: (7 sources)Propoxyphene; Translations: [PROPOXYPHENE]Drug Qekmmsi14-20-6601Pkyl, Unknown, GI intolerance, Headache, Unknown (qualifier value)[facility] (4 sources)quiNINE; Translations: [QUINAMM]Drug Kmhbntz03-81-4276KA Upset [facility] (5 sources)Decongest Multi-Action; Translations: [Decongest Multi-Action]Drug Wjxvkkz61-00-9651Jgudq: See CommentsC[facility] Clinic [facility] (1 source)Acetaminophen / HYDROcodoneDrug AllergyThe [facility] (2 sources)CodeineDrug Rtudprf47-09-3171CkqBl[facility] (3 sources)Fluconazole; Translations: [Diflucan]Drug AllergyThe [facility] (2 sources)PenicillinsDrug allergy (disorder)87-62-1338Vrd [facility] (3 sources)pregabalin; Translations: [Lyrica]Drug AllergyThe [facility] (4 sources)Propoxyphene; Translations: [Darvon][facility]rug AllergyBl[facility] (1 source)quiNINEDrug AllergyThe [facility] (1 source)FluconazoleAllergy to zadseozkb41-70-3943LyteemfYQWR Healthcare (1 source)PenicillinsPropensity to adverse auwnmcqsb05-66-4892TyoowhkXERS [facility] (1 source)PregabalinPropensity to adverse lrjnnvbzy85-56-0108JgnajundvFOHW Healthcare (1 source)PseudoephedrineDrug Cfjmvhd57-81-9052IOCY [facility] (5 sources)quiNINE; Translations: [quinine]Drug Ldifpds04-13-4033TP intolerance, Headache, Dizziness, Unknown (qualifier value)[facility] (2 sources)Fluconazole; Translations: [fluconazole]Drug AllergyUnknown (qualifier value)[facility] (4 sources)Penicillin; Translations: [penicillin]Drug AllergyUnknown (qualifier value)[facility] Medications Current Medications MedicationDrug Class(es)DatesSig (Normalized)Sig (Original)Tylenol (6 sources)Start: 01-20-4582Ofmfgah Oral, Refills(s) 0 Start Date: 10/10/24 Status: Ordered Repeat number: 1acetaminophen (Tylenol) 500 MG tablet Take by mouth. ActiveComment on above:Take 500 mg by mouth twice daily.acetaminophen 325 mg / HYDROcodone bitartrate 5 mg oral tablet (6 sources)Opioid AgonistStart: 39-11-6774huol 1 tablet by mouth every six hours [place] 325 mg-5 mg oral tablet tab(s), Oral, q6hr, Refill(s) 0 Start Date: 10/10/24 Status: Ordered Repeat number: 1Start: 05-06-2881fcmq 1 tablet by mouth twice daily as neededHYDROcodone-acetaminophen ([place]) 5-325 MG tablet 1 tablet as needed Orally twice daily 04/29/2022 ActiveComment on above:Take 1 tablet by mouth twice daily as needed.Benita 24 Hour (2 sources)Start: 29-43-0637Eqvcnrz 24 Hour Refills(s) 0 Start Date: 10/10/24 Status: Ordered Repeat number: 1Aspir 81 (2 sources)Start: 04-58-4474irox 1 mg by mouth once dailyAspir 81 [...] mg by mouth once daily.Caltrate (4 sources)Start: 64-77-5449fplo 1 mg by mouth once dailyCaltrate mg, Oral, Daily, Refills(s) 0 Start Date: 10/10/24 Status: Ordered Repeat number: 1Start: 92-84-6583Qbrxbmwn 600 + D Oral, BID, Refill(s) 0 Start Date: 10/10/24 Status: Ordered Repeat number: 1Calcium Carbonate / Vitamin D (1 source)Calcium Carbonate-Vitamin D (CALTRATE 600+D PO) Take by mouth twice a day. TipvekNncoani-Zpnfizz-Kukeuq Edwar (SALONPAS TD) (1 source)Dvviiut-Fgzyfdk-Xpaprw Edwar (SALONPAS TD) Place on the skin Active citalopram 10 mg oral tablet (6 sources)Serotonin Reuptake InhibitorStart: 30-62-0785hnna 1 mg by mouth once dailycitalopram 10 mg Tab mg tab(s), Oral, Daily, Refills(s) 0 Start Date: 10/10/24 Status: Ordered Repeat number: 1Start: 84-91-4953flcu 1 tablet by mouth once dailycitalopram hydrobromide (CELEXA) 10 mg tablet Take 10 mg by mouth once daily. Treat Depression 0 03/01/2022 ActiveComment on above:Take 10 mg by mouth once daily. Treat Depressioncyclobenzaprine hydrochloride 5 mg oral tablet (6 sources)Muscle RelaxantStart: 92-91-1158hfyt 1 mg by mouth three times daily [...] release oral tablet (6 sources)Nonsteroidal Anti-inflammatory DrugStart: 68-16-0661edxj 1 mg by mouth twice dailydiclofenac sodium 75 mg Oral EC Tab mg tab(s), Oral, BID, Refills(s) 0 Start Date: 10/10/24 Status: Ordered Repeat number: 1Start: 05-54-2131fbcr 1 tablet by mouth twice daily for paindiclofenac, EC, (VOLTAREN) 75 mg EC tablet Take 75 mg by mouth twice daily. For Arthritis pain 0 03/24/2022 Activediclofenac (Voltaren) 75 MG EC tablet every 12 (twelve) hours. Active Comment on above:Take 75 mg by mouth twice daily. For Arthritis painferrous sulfate 325 mg delayed release oral tablet (3 sources)Start: 99-14-8657kqvo 1 mg by mouth once dailyferrous sulfate 325 mg oral enteric coated tablet mg tab(s), Oral, Daily, Refills(s) 0 Start Date: Status: Ordered Repeat number: 1Start: 52-38-5400ylrj 1 tablet by mouth in the morningferrous sulfate 325 (65 Fe) MG tablet Take 1 tablet by mouth in the morning and 1 tablet before bedtime. 09/16/2023 Activefexofenadine hydrochloride 180 mg oral tablet (5 sources)Histamine-1 Receptor Antagonist End: 86-81-4992wviithfznirp ([facility]ita [facility]) 180 MG tablet [facility] 12/06/2023 Discontinued (Duplicate order)Comment on above:Take 180 mg by mouth once daily. flax oral capsule (2 sources)Start: 08-81-4198qtsq oral capsule Refill(s) 0 Start Date: 10/10/24 Status: Ordered Repeat number: 1gabapentin 100 mg oral capsule (2 sources)Anti-epileptic AgentStart: 41-16-0943jiki 1 mg by mouth three times dailygabapentin 100 mg Cap mg cap(s), Oral, TID, Refills(s) 0 Start Date: 10/10/24 Status: Ordered Repeatnumber: 9Umilmragrms-Ujurwvpqktm-NTK (Triple Flex) 500-400-125 MG tablet (1 source)take 1 tablet by mouth twice daily at mealtime Mgglhsipktc-Qxfpinfcztm-ZAW (Triple Flex) 500-400-125 MG tablet 1 tablet with meals Orally twice daily for 30 days Jvenuj70 hr isosorbide mononitrate 30 mg extended release oral tablet (6 sources)Nitrate VasodilatorStart: 63-27-2076jsta 1 mg by mouth once daily in the morningisosorbide mononitrate 30 mg ER Tab mg tab(s), Oral, qAM, Refills(s) 0 Start Date: 10/10/24 Status: Ordered Repeat number: 1Start: 82-39-1625dijp 1 tablet by mouth in the morning, then take 1 tablet by mouth every twenty-four hoursisosorbide mononitrate ER (Imdur) 30 MG 24 hr tablet Take 30 mg by mouth in the morning. 03/21/2022ctiveComment on above:Take 30 mg by mouth once daily. 1 tablet daily in the AM on an empty stomach Treat for Anginalevothyroxine sodium 0.075 mg oral tablet (6 sources)l-ThyroxineStart: 46-15-7963swqy 1 tablet by mouth once daily levothyroxine 75 mcg (0.075 mg) Tab mcg tab(s), Oral, Daily, Refills(s) 0 Start Date: 10/10/24 Status: Ordered Repeat number: 1Start: 97-05-3719orbfjrwpvrthb (Synthroid, Levoxyl) 75 MCG tablet 1 (one) time each day at the same time. 03/18/2022ctiveComment on above:Take 75 mcg by mouth once daily. Patient takes 1 tablet in the AMlinseed oil 1000 mg oral capsule (4 sources)Flaxseed, Linseed, (Flax Seed Oil) 1000 MG capsule as directed Orally ActiveComment on above:Take 1,000 mg by mouth once daily.liothyronine sodium 0.025 mg oral tablet (6 sources)l-TriiodothyronineStart: 40-70-9950vzzq 1 tablet by mouth once daily liothyronine [...] zinc Activemagnesium amino acid chelate (5 sources)Start: 88-03-7774qdiroljbv amino acids chelate Oral, Refills(s) 0 Start Date: 10/10/24 Status: Ordered Repeat number:1take 250 mg by mouth once daily at bedtimeMAGNESIUM AMINO ACID CHELATE ORAL Take 250 mg by mouth once daily. At bedtime 0 ActiveComment on above:Take 250 mg by mouth once daily. At bedtimeMelatonin (6 sources)Start: 60-41-2958Wrhzhzjxn Once a day (at bedtime), Refills(s) 0 [...] extended release oral tablet (6 sources)beta-Adrenergic BlockerStart: 91-26-9011obju 1 mg by mouth once daily metoprolol succinate 50 mg ER Tab mg tab(s), Oral, Daily, Refills(s) 0 Start Date: 10/10/24 Status: Ordered Repeat number: 1Start: 81-41-0064qhwy 1 tablet by mouth twice dailymetoprolol succinate ER (TOPROL XL) 50 mg 24 hr tablet Take 50 mg by mouth twice daily. 0 03/24/2022 ActiveComment on above:Take 50 mg by mouth twice daily.24 hr mirabegron 25 mg extended release oral tablet (1 source)beta3-Adrenergic AgonistStart: 11-14-2024 End: 61-69-5914zyvu 1 tablet by mouth once dailyMyrbetriq 25 mg oral tablet, extended release 25 mg = 1 tab(s), Oral, Daily, X 30 day(s), # 30 tab(s), Refills(s) 3, Pharmacy: [facility]/pharmacy #[id number], 150, cm, 11/14/24 15:17:00 EDT, Height/Length Dosing, 79.9, kg, 11/14/24 15:17:00 EDT, Weight Dosing Start Date: 11/14/24 Stop Date: 03/14/25 Status: Ordered Quantity: 30.0 Unit: tab(s) Repeat number: 4 Indications: Overactive bladder;Multi Vitamin+ (2 sources)Start: 35-30-0151Xgznj Vitamin+ Refill(s) 0 Start Date: 10/10/24 Status: Ordered Repeat number: 1Multiple Vitamin (multivitamin) tablet (1 source)take 1 tablet by mouth in the morningMultiple Vitamin (multivitamin) tablet Take 1 tablet by mouth in the morning. ActiveNitroglycerin (6 sources)Nitrate VasodilatorStart: 76-27-2459hbcrarkempibb Refills(s) 0 Start Date: 10/10/24 Status: Ordered [...] 3x daily As needed for chest pain Point Clear-3 1000 mg oral capsule (2 sources)Start: 84-63-3762Ggldq-3 1000 mg oral capsule mg cap(s), Oral, Refills(s) 0 Start Date: 10/10/24 Status: Ordered Repeat number: 1Osteo Bi-Flex Triple Strength (2 sources)Start: 12-34-8554Spikc Bi-Flex Triple Strength Refill(s) 0 Start Date: 10/10/24 Status: Ordered Repeat number: 1oxybutynin chloride 5 mg oral tablet (2 sources)Cholinergic Muscarinic AntagonistStart: 37-21-5794kxkf 1 tablet by mouth once dailyoxybutynin 5 mg Tab 5 mg = 1 tab(s), Oral, Daily, # 30 tab(s), Refills(s) 0, Pharmacy: [facility]/pharmacy#[id number], 150, cm, 10/10/24 10:18:00 EDT, Height/Length Dosing, 80, kg, 10/10/24 10:18:00 EDT, Weight Dosing Start Date: 10/10/24 Status: Ordered Quantity: 30.0 Unit: tab(s) Repeat number: 1 Indications:Overactive bladder;pantoprazole 40 mg delayed release oral tablet (3 sources)Proton Pump InhibitorStart: 62-30-6987gypi 1 mg by mouth once daily Pantoprazole [address] Tab mg tab(s), Oral, Daily, Refills(s) 0 Start Date: 10/10/24 Status: Ordered Repeat number: 1Start: 19-54-9274wnbz 1 tablet by mouth once dailypantoprazole (ProtoNix) 40 MG EC tablet Take 40 mg by mouth Daily 10/13/2023 ActivePotassium Chloride (2 sources)Start: 49-40-4541yirhccevi chloride Refills(s) 0 Start Date: 10/10/24 Status: Ordered Repeat number: 1Salonpas Pain Patch (2 sources)Start: 10-09-4301Xcjyxggm Pain Patch Refill(s) 0 Start Date: 10/10/24 [...] ActiveComment on above:Take by mouth twice daily.capsaicin 0.65644 mg/mg medicated patch (3 sources)Capsaicin (SALONPAS-HOT) 0.025 [...] DateEpisodic/ChronicAnxiety disorders (2 sources)Mixed anxiety and depressive vfdltyqd66-02-0241LstmqfnWsdchtzri and vision defects (1 source)Unspecified visual loss; Translations: [UNSPECIFIED VISUAL LOSS]Onset: 93-34-6353JzsbputMoxplco dysrhythmias (2 sources)Supraventricular ywbmtzeynuc26-66-2639OwdqwdfXmofeybxdd heart failure; nonhypertensive (5 sources)Unspecified diastolic (congestive) heart failure; Translations: [Congestive heart failure]Onset: 419067-91-9568DrlgcrgEbmdmsoc atherosclerosis and other heart disease (4 sources)Coronary nvkopvsiwkusknql17-29-7389TfvddncCpmimfursr and other anemia (2 sources)Anemia, unspecified; Translations: [ANEMIA UNSPECIFIED]Onset: 10-47-2600WjcyhxitExqndoqv, dementia, and amnestic and other cognitive disorders (4 sources)Ynvzrexm15-35-1487QcrymmkCwlhffcm of white blood cells (4 sources)Zykopgdxisb91-69-8604FgtjxvjQeqtdeqwv of lipid metabolism (7 sources)Hyperlipidemia, unspecified; Translations: [Hyperlipidemia]Onset: 564621-80-0611LufubdtPcucdxlcp hypertension (8 sources)Essential (primary) hypertension; Translations: [Essential hypertension]Onset: 427604-80-9560OdiynlvWyqdg and electrolyte disorders (10 sources)Dehydration; Translations: [Hypo-osmolality and hyponatremia]Onset: 69-64-7865PqzhqwevQrajdvduwsctk symptoms and ill-defined conditions (4 sources)Stress incontinence (female) (male); Translations: [Female stress incontinence]Onset: 12-00-8908KwylzyoPuxggqkrofygs symptoms and ill-defined conditions (12 sources)Dysuria; Translations: [Other abnormal findings in urine]Onset: 06-70-2331IkunhqecTnwdngagxeoi with complications and secondary hypertension (4 sources)Hypertensive heart disease with heart failure; Translations: [HTN HEART DISEASE W/HEART FAIL]Onset: 57-66-0574AknrhfjIjydkruiknka breast conditions (1 source)Fibrocystic disease of breast; Translations: [Diffuse cystic mastopathy of unspecified breast]Onset: 062410-87-4978NggkceyPekdadvmpag chest pain (3 sources)Chest pain, unspecified; Translations: [Chest pain]Onset: 11-13-2021 65-04-4578EkundgyeKxiymhackfx deficiencies (1 source)Vitamin D deficiency, unspecified; Translations: [VITAMIN D DEFICIENCY UNSPECIFIED]Onset: 00-15-4196QnfndduFtdp wounds of extremities (2 sources)Laceration of upper hsl56-40-3690EfgmysygPvlnzkewluvmhm (8 sources)Bilateral primary osteoarthritis of hip; Translations: [Unspecified osteoarthritis, unspecified site]Onset: 211450-58-3566RahftsbIbuhmwbgffpm (2 sources)Senile bkkxgyfltahb27-58-1974KhtgkliUeznf acquired deformities (4 sources)Scoliosis of lumbar spine; Translations: [Scoliosis, unspecified] Onset: 86-15-4725VwdmmsdJbajg acquired deformities (5 sources)Scoliosis deformity of spine; Translations: [Scoliosis, unspecified] Onset: 454086-65-4072GgcdqsiSaupm acquired deformities (1 source)Scoliosis, unspecified; Translations: [SCOLIOSIS UNSPECIFIED]Onset: 84-26-8794SzcnghwNlcku acquired deformities (1 source)Lumbar spondylolisthesis; Translations: [Spondylolisthesis, lumbar region]EpisodicOther bone disease and musculoskeletal deformities (1 source)Idiopathic scoliosis of lumbar spine; Translations: [Other idiopathic scoliosis, lumbar region]ChronicOther circulatory disease (2 sources)Easy gysjcxze93-45-2207FlqmsclmYdgvk connective tissue disease (1 source)Presence of right artificial knee joint; Translations: [PRESENCE RT ARTIFICIAL KNEE JOINT]Onset: 53-24-0101JwiugsxLuggi connective tissue disease (5 sources)Other muscle spasm; Translations: [OTHER MUSCLE SPASM]Onset: 77-49-7076YbekpnlsDtfxx diseases of bladder and urethra (2 sources)Detrusor overactivity; Translations: [Overactive bladder]Onset: 45-92-6245QtftzvnWfnlr diseases of bladder and urethra (2 sources)Overactive wzhhyjo58-42-6129VojwxuoXnnax diseases of veins and lymphatics (2 sources)Stasis hrdnxmdijd73-80-4546EfoagwlwLlajo ear and sense organ disorders (2 sources)Otitis -73-9642QxeiyutFnplk nervous system disorders (4 sources)Other specified mononeuropathies of right lower limb; Translations: [OTH SPEC MONONEUROPATH RT LOW LIMB]Onset: 86-66-7190DcfpbjeJfjix nervous system disorders (4 sources)Other specified mononeuropathies; Translations: [OTHER SPECIFIED MONONEUROPATHIES]Onset: 58-61-1255IdivjkmQammt nervous system disorders (1 source)Other chronic pain; Translations: [OTHER CHRONIC PAIN]Onset: 49-60-9104CfrgpbzPulwh non-traumatic joint disorders (2 sources)Allergic arthritis of the shoulder ggnbeh27-22-5676CkxzmjfMbapd non- traumatic joint disorders (2 sources)Bilateral arthritis of -34-4098EagfjlbJgaxp non-traumatic joint disorders (5 sources)Pain in right hip; Translations: [PAIN IN RIGHT HIP]Onset: 05-13-2022 EpisodicOther nutritional; endocrine; and metabolic disorders (4 sources)Obese class I; Translations: [Obesity, unspecified]Onset: 09-21-2022 59-09-8817ZfzhgoxEtdso nutritional; endocrine; and metabolic disorders (2 sources)Body mass index 30+ - bzpjfka96-39-9582NcxsjdxLylpu nutritional; endocrine; and metabolic disorders (2 sources)Aweuzai50-23-0128GpfpakaJalrz screening for suspected conditions (not mental disorders or infectious disease) (6 sources)Encounter for screening mammogram for malignant neoplasm of breast; Translations: [Patient encounter status]Onset: 93-28-4479IkomnxruRsnfg upper respiratory disease (2 sources)Allergic tukrlubd03-72-9345EecdwsxNzrji upper respiratory disease (2 sources)Seasonal allergic ftfhjely25-36-5332LcxjsoxFchpmcbvv heart disease (2 sources)Secondary pulmonary exgfjduoumvh45-18-1284LhuiixtPxvjviwp codes; unclassified (2 sources)Obstructive sleep apnea rleanjsq41-39-5616LuklorzKseivens codes; unclassified (2 sources)Sleep wnred55-10-1604OlzituvCdupaofj codes; unclassified (2 sources)Ckzcvro24-95-2090WzifjifnYkmjdvec codes; unclassified (2 sources)Clouded urdyahelnpvub82-04-4280XjcblxihIggvevon codes; unclassified (2 sources)Tfxfv30-12-5190OizrerzpVhzmvmfg codes; unclassified (4 sources)Poor short-term agtfyq11-73-5186MdfwsnczHykgpewasua failure; insufficiency; arrest (adult) (2 sources)Chronic respiratory ganzgyb60-65-2765RmvubybAvveqfdrjyk; intervertebral disc disorders; other back problems (20 sources)Lumbar spondylosis; Translations: [Spondylosis without myelopathy or radiculopathy, lumbar region]Onset: 00-30-7737GpogzodMxnnlncthum; intervertebral disc disorders; other back problems (18 sources)Chronic low back pain; Translations: [Lumbago with sciatica, right side]Onset: 67-30-7077HflegbgvXtpskvh disorders (13 sources)Hypothyroidism, unspecified; Translations: [Thyrotoxicosis, unspecified without thyrotoxic crisis or storm]Onset: ChronicTransient cerebral ischemia (2 sources)Transient cerebral -51-4526FvrbylzBhaapqvqbqyo (4 sources)LOW BACK PAIN, UNSPECIFIED; Translations: [LOW BACK PAIN, UNSPECIFIED]Onset: 16-67-5655Tijifgbcdbae (1 source)PERSONAL HISTORY OF COVID-19; Translations: [PERSONAL HISTORY OF COVID-19]Onset: 28-00-3656Nxdijrdlmfgw (1 source)CONTACT W/AND (SUSP) EXPOS COVID-19; Translations: [CONTACT W/AND (SUSP) EXPOS COVID-19]Onset: 18-14-0653Lcvuzamnwglp (2 sources)Arthropathies and related disorders (navigational concept)10-10-2024 Unclassified (2 sources)Asymptomatic microscopic tmoyuuoly05-03-2495Ymuxo infection (1 source)COVID-19; Translations: [COVID-19]Onset: 11-13-2021 Past or Other Problems Problem ClassificationProblemDateDocumented DateEpisodic/ChronicConditions associated with dizziness or vertigo (4 sources)Dizziness and giddiness; Translations: [DIZZINESS AND GIDDINESS] Onset: 72-47-8458LlxnfifaCipubsck mellitus without complication (1 source)Other abnormal glucose; Translations: [OTHER ABNORMAL GLUCOSE]Onset: 51-59-2025SdsarnemBymnfxs and fatigue (4 sources)Weakness; Translations: [WEAKNESS]Onset: 24-95-9247VbuxepusDgaswr and vomiting (1 source)Nausea with vomiting, unspecified; Translations: [NAUSEA WITH VOMITING UNSPECIFIED]Onset: 42-08-8449ZqjsbwmzJygkt aftercare (1 source)USP (current) use of aspirin; Translations: [SNF CURRENT USE OF ASPIRIN]Onset: 74-99-3667ZoycsfenYdvld aftercare (1 source)Other retirement (current) drug therapy; Translations: [OTH SNF CURRENT DRUG THERAPY]Onset: 88-09-1719DxxfnqikWlqlh bone disease and musculoskeletal deformities (1 source)Other specified disorders of bone density and structure, unspecified site; Translations: [OTH D/O BONE DEN STRUCT UNS SITE]Onset: 44-71-0890Giyzzsfx Other circulatory disease (1 source)Personal history of transient ischemic attack (TIA), and cerebral infarction without residual deficits; Translations: [PERS HX TIA AND CI NO RESID DEFICIT]Onset: 75-89-9816GheubxbhEnoyp connective tissue disease (1 source)Sarcopenia; Translations: [SARCOPENIA]Onset: 24-96-6558BmvtjxfjOwswf gastrointestinal disorders (1 source)Diarrhea, unspecified; Translations: [DIARRHEA UNSPECIFIED]Onset: 99-60-2221NekgyoqmQqpgz lower respiratory disease (1 source)Chronic cough; Translations: [CHRONIC COUGH]Onset: 29-34-2563Erwmrqbg Other non-traumatic joint disorders (5 sources)Pain in right knee; Translations: [PAIN IN RIGHT KNEE]Onset: 38-50-7750BzsiitdtNnvszdnt codes; unclassified (1 source)Acquired absence of both cervix and uterus; Translations: [ACQUIRED ABSENCE BOTH CERVIX AND UTERUS]Onset: 63-05-5869KgrojsuyQyzqizly codes; unclassified (1 source)Acquired absence of other specified parts of digestive tract; Translations: [ACQ ABSENCE OTH PART DIGESTV TRACT]Onset: 92-13-9592Llzvenra Unclassified (1 source)LOW BACK PAIN, UNSPECIFIED; Translations: [LOW BACK PAIN, UNSPECIFIED] Onset: 04-06-2022 Results Test NameValueInterpretationReference RangeFacilityUrology Office/Clinic Noteon 88-70-4108Bchxjkt Office/Clinic NoteUrology Office/Clinic Note Chief Complaint Pt [...] day(s), # 30 tab(s), Refills(s) 3, Pharmacy: [facility]/pharmacy #[id number], 150, cm, 11/14/24 15:17:00 EDT, Height/Length Dosing, 79.9, kg, 11/14/24 15:17:00 EDT,Weight Dosing 2. Incomplete bladder emptying (R33.9: Retention of urine, unspecified) PVR (cc): 10/10/24 - 146 11/14/24 - PVR improved. Pt reassured she is emptying better. -Cont sx monitoring Ordered: 35024 Measure Post Void residual urine and/or bladder [...] Urnls Dip Stick Auto w/o Microscopy POC 98774 3. NILESH (stress urinary incontinence, female) (N39.3: [...] Cervical spondylosis Chest pain (more content not included)...NormalC[facility] Comment on above:Result Comment: Electronically Signed By: Jacinta Long PA-C\.br\Date and Time Signed: 11/14/24 16:19 EDTUrinalysis with Microon 48-19-9994Cixxk (U)ColorlessAbnormalYProvidence HospitalComment on above:Result Comment: Microscopic readings are only performed on those samples that meet specific criteria set forth by [facility]. Performed By: #### [id number] #### [facility] [address] [place], [place] [address] (U) [Mass/Vol]NegativeNormalNegativeCleveland Clinic Marymount HospitalComment on above:Performed By: #### [id number] #### [facility] [address] [place], [place] [address]Xyeyyax Ql (U)NegativeNormalNegMetroHealth [facility] Comment on above:Performed By: #### [id number] #### [facility] [address] [place], [place] [address]GC BloodTraceAbnormalNegativeCleveland Clinic Marymount HospitalComment on above:Performed By: #### [id number] #### [facility] [address] [place], [place] [address]NP ClarityClearNormalClearCleveland Clinic Marymount HospitalComment on above:Performed By: #### [id number] #### [facility] [address] [place], [place] [address]TC Leuk EstNegativeNormalMercy Health [facility] Comment on above:Performed By: #### [id number] #### [facility] [address] [place], [place] [address]LS NitriteNegativeNoMansfield Hospital Comment on above:Performed By: #### [id number] #### [facility] [address] [place], [place] [address]AE pH6.0Invalid Interpretation Code5.0-9.0[facility] HospitalComment on above:Performed By: #### [id number] #### [facility] [address] [place], [place] [address]MB ProteinNegativeNormalNegMetroHealth [facility] Medical Center Comment on above:Performed By: #### [id number] #### [facility] [address] [place], [place] [address]WW Spec Grav1.006Invalid Interpretation Code1.005-1.030[facility] HospitalComment on above:Performed By: #### [id number] #### [facility] [address] [place], [place] [address]RC UrobilinogenNegativeNormalNegMetroHealth Cleveland Heights Medical CenterComment on above:Performed By: #### [id number] #### [facility] [address] [place], [place] [address]Cjcpzcbqrzvm (U) [Mass/Vol]NegativeNormalNegativeCleveland Clinic Marymount HospitalComment on above:Performed By: #### [id number] #### [facility] [address] [place], [place] [address]VZ Spec DescClean CatchNormBrown Memorial HospitalComment on above:Performed By: #### [id number] #### [facility] [address] [place], [place] [address]Frktv Cultureon 74-65-6518Zygzelaz identified Cx Nom (U)No Growth 2 Days PERFORMED BY: [facility] [address] [id number] PATHOLOGIST WASTE MACHINE OPERATOR BRAULIO CARDOZO M.D.[facility] Physician GroupComment on above: Performed By: #### CUU #### [facility] [address] [id number] USACNOVon [id number] Visit (NSADHC) ALEXA DELGADO ([id number]) 1940 F Date Time Provider Department 09/21/22 1:00 PM CAROLYN VANEGAS [facility] During your visit today, we [...] Physical Function Percentile 2 (more content not included)...NormalSt. Mary'S Medical Center, Ironton CampusXR LSPINE 2_3 VIEWSon [id number] LSPINE 2_3 VIEWSEXAMINATION: XR LSPINE 2_3 VIEWS [...] Electronically authenticated by: HERMES SUAREZ Date: 2022-07-16 11:34[facility] [id number] Visit (SPMESH) ALEXA DELGADO ([id number]) 1940 F Date Time Provider Department 05/14/22 2:30 PM [facility]IER [facility] During your visit today, we recorded the following information about you: Pulse Blood pressure Weight Height 72/minute 158/87 76.4 kg 1.524 m Marty Dozier DO 05/15/2022 10:02 PM Signed [facility] - Medical [...] Ratio: R>L low back Current Treatment: Medications [place] 5-325 mg BID - helps Diclofenac 75 [...] but still has pain -01/28/22 Noemi Sequeira [employer]: BL Lumbar erector spinae TPI (0.125% Marcaine, [...] ongoing as of 04/17/21 -03/08/21 Noemi Sequeira [employer]: Left rhomboid TPI (0.125% Marcaine, 40 mg Kenalog) -02/03/21 LESI - moderate relief for 4 days Prior spine surgery: -2006 L4-5 Discectomy Previously treated by: -[facility], previously Dr. [...] has an evaluation at the [facility] tomorrow at the [facility] RECOMMENDATIONS: We will see the pat (more content not included)...Normal [facility] ClevelandCULTURE URINEon [id number] URINECulture Observations: LIGHT GROWTH OF MIXED GENITAL ALANIS. NO POTENTIAL PATHOGENS SEEN.NormalThe [facility] CenterComment on above:Performed By: #### URCX ####[facility] Ibxkavothq8[address] [place], [place] [address]Dr. Yilan ChangUA RANDOM W/MICROSCOPICon [id number] SEENNormalNONE SEENBlanchard Valley Health System [facility] Comment on above:Performed By: #### UAMIC ####[facility] Sitvnwjoid525[address] [place], [place] [address]Dr. Yilan ChangBilirubin Ql (U)Negative NormalNEGATIVEBlanchard Valley Health System [facility]anch[facility] Valley HospitalComment on above:Performed By: #### UAMIC ####[facility] Upvlcmignx858[address] [place], [place] [address]Dr. Yilan ChangCASTNONE SEENNormalNONE SEENBlanchard Valley Health System [facility] Valley HospitalComment on above: Performed By: #### UAMIC ####[facility] Eulfhoagfs8924[address] [place], [place] [address]Dr. Yilan ChangClarity (U)CLEARNormalCLEARBlanchard Valley Health System Bl[facility] Valley HospitalComment on above:Performed By: #### UAMIC ####[facility] Dduwpqreah999[address] [place], [place] [address]Dr. Yilan ChangColor (U) YELLOWNormalYELLOWUc Medical Center HospitalComment on above:Performed By: #### UAMIC ####[facility] Mbvioifjkx614[address] [place], [place] [address]Dr. Yilan ChangCrystals LM Nom (Urine sed)NONE SEENNormalNONE SEENBlanchard Valley Health System Bl[facility] Valley HospitalComment on above:Performed By: #### UAMIC ####[facility] Lzqzwmorhr4622[address] [place], [place] [address]Dr. Yilan ChangEpithelial cells LM Ql (Urine sed)RARENormalNONE SEEN /RAREBlanchard Valley Health System Blanch[facility] Valley HospitalComment on above:Performed By: #### UAMIC ####[facility] Sttzjlyyju335[address] [place], [place] [address]Dr. Yilan ChangGlucose Ql (U)NegativeNormalNEGATIVEBlanchard Valley Health System [facility] Valley HospitalComment on above:Performed By: #### UAMIC ####[facility] Vtiqjosmbj1436[address] [place], [place] [address]Dr. Benitalan Abdul Hemoglobin Ql (U)MODERATEAbnormalNEGATIVEThe Goodman HospitalComment on above: Performed By: #### UAMIC ####[facility] Svwujpxeee5609[address] [place], [place] [address]Dr. Yilan ChangKetones Ql (U)TRACEAbnormalNEGATIVEThe Goodman HospitalComment on above:Performed By: #### UAMIC ####[facility] Uykhohtkfs307[address] [place], [place] [address]Dr. Yilan ChangLEUKOCYTES TRACEAbnormalNEGATIVEThe Goodman HospitalComment on above:Performed By: #### UAMIC ####[facility] Reazvbwksp9440[address] [place], [place] [address]Dr. Yilan ChangMUCOUSNONE SEENNormalNONE SEENUc Medical Center HospitalComment on above:Performed By: #### UAMIC ####[facility] Bqxzoquclt2045[address] [place], [place] [address]Dr. Grace ChangNitrite Ql (U)NegativeNormalNEGATIVE The Goodman HospitalComment on above:Performed By: #### UAMIC ####[facility] Rimwhudcyb4329[address] [place], [place] [address]Dr. Yilee ann ChangpH (U)5.0 [pH]Normal5-9The Goodman HospitalComment on above:Performed By: #### UAMIC ####[facility] Zijzkhxrte4579[address] [place], [place] [address]Dr. Grace LibdwUEX7-0Ydnebu3-4Aps [facility] CenterComment on above: Performed By: #### UAMIC ####[facility] Mkeiwpxmxu8733[address] [place], [place] [address]Dr. Yilan FrankoSPEC GRAVITY1.646Ecmxxw3.005-<=1.025The [facility] HospitalComment on above:Performed By: #### UAMIC ####[facility] Hcnpmfkysn038[address] [place], [place] [address]Dr. Yilan ChangUA PROTEINNegativeNormalNEGATIVE/ TRACEThe Goodman HospitalComment on above: Performed By: #### UAMIC ####[facility] Ddmxmpotyu450[address] [place], [place] [address]Dr. Benitalan ChangUrobilinogen Qn (U)0.2 {Ashley'U}/dL Normal0.2 - 1.0The [facility] CenterComment on above:Performed By: #### UAMIC ####[facility] Dot[address]yxs[address] [address]Dr. Yilan ChangWBC0-2AbnormalNONE SEENThe [facility] CenterComment on above: Performed By: #### UAMIC ####[facility] Nsuncrbkkv4744[address] [place], [place] [address]Dr. Benitalan ChangCBC AUTO DIFFon [id number] #0.0 103/ulNormal0.0-0.1The [facility] CenterComaleda e. l[facility] on above:Performed By: #### CBC ####[facility] Kagspatdzr345[address] [place], [place] [address]Dr. Benitalee ann ChangBasophils/100 WBC (Bld)0.4 %Normal0.2-2.0The [facility] on above:Performed By: #### CBC ####[facility] Bceqlsqydt5595[address] [place], [place] [address]Dr.Yilan ChangEO #0.1 103/ulNormal0.0-0.7The [facility] CenterComaleda e. l[facility] on above:Performed By: #### CBC ####[facility] Cualzjdavo4855[address] [place], [place] [address]Dr.Benitalee ann ChangEosinophils/100 WBC (Bld)1.3 %Normal0.9-7.0The UC Healthment on above:Performed By: #### CBC ####[facility] Nqbkxpvael759[address] [place], [place] [address]Dr.Benitalan ChangErythrocyte distribution width (RBC) [Ratio]13.7 %Normal 11.0-15.0The [facility] on above:Performed By: #### CBC ####[facility] Tbltsplapz768[address] [place], [place] [address]Dr. Benitalee ann ChangHematocrit (Bld) [Volume fraction]37.2 %Zhmwgq64.0-48.0The [facility] CenterComment on above:Performed By: #### CBC ####[facility] [address]bw[address] [address]Dr.Grace ChangHemoglobin (Bld) [Mass/Vol]12.4 g/sQWppapt77.0-16.0The [facility] CenterComment on above: Performed By: #### CBC ####[facility] Snwbehixuz2909[address] [place], [place] [address]Dr.Benitalee ann ChangIG #0.02 10e3/ulNormal0.00-0.03The [facility] CenterComment on above:Performed By: #### CBC ####[facility] Nvzectcrlm5109[address] [place], [place] [address]Dr.Benitalee ann AbdulIG %0.4 %Normal 0.0-0.5The [facility] CenterComment on above:Performed By: #### CBC ####[facility] Gaatgwlond28[address] [place], [place] [address]Dr.Grace AbdulLYMPH #0.8 103/ulCritically low1.2-3.8The [facility] CenterComment on above:Performed By: #### CBC ####[facility] Mhjwopgmqu5864[address] [place], [place] [address]Dr.Benitalee ann AbdulLymphocytes/100 WBC (Bld)13.9 %Critically low20.5-60.0 The [facility] CenterComment on above:Performed By: #### CBC ####[facility] Urixfwnjar8965[address] [place], [place] [address]Dr.Grace AbdulMANUAL DIFF REQNONormalThe [facility] CenterComment on above:Performed By: #### CBC ####[facility] Hcnuykkxgv586[address] [place], [place] [address]Dr. Grace AbdulMCH (RBC) [Entitic mass]30.5 moSbzaca68.7-34.0The [facility] Comment on above:Performed By: #### CBC ####[facility] Miphxzlthe9399[address] [place], [place] [address]Dr.Grace AbdulMCHC (RBC) [Mass/Vol]33.3 g/dL Bgmeze07.9-35.2The [facility] HospitalComment on above:Performed By: #### CBC ####[facility] [address]ugep[address] [address]Dr. Grace AbdulMCV (RBC) [Entitic vol]91.4 mMWbmdlh81.0-99.0The [facility] Comment on above:Performed By: #### CBC ####[facility] Xwuzupgdll9904[address] [place], [place] [address]Dr.Grace AbdulMONO #0.7 103/ulNormal0.3-0.8 The [facility] HospitalComment on above:Performed By: #### CBC ####[facility] Ubkmpuqmkh399[address] [place], [place] [address]Dr.Grace Abdul Monocytes/100 WBC (Bld)13.5 %Critically high1.7-12.0The [facility] HospitalComment on above:Performed By: #### CBC ####[facility] Lgycxamvgb6435[address] [place], [place] [address]Dr.Grace AbdulNEUT #3.8 103/ulNormal1.4-6.5The [facility] HospitalComment on above:Performed By: #### CBC ####[facility] Vskxenuiaq9714[address] [place], [place] [address]Dr.Benitalee ann FrankoNeutrophils/100 WBC (Bld)70.5 %Gwcbgr20.0-75.0The [facility] HospitalComment on above:Performed By: #### CBC ####[facility] Xbjxgjyaps7675[address] [place], [place] [address]Dr.Benitalee ann AbdulPlatelet mean volume (Bld) [Entitic vol]9.0 fLCritically low 9.5-13.5The [facility] HospitalComment on above:Performed By: #### CBC ####[facility] Ckxmwzrnzw707[address] [place], [place] [address]Dr. Grace AbdulPLT283 103/diRexhig217-698Doo Goodman HospitalComment on above: Performed By: #### CBC ####[facility] Dptoeuezkc6675[address] [place], [place] [address]Dr.Grace AbdulRBC4.07 106/ulCritically low4.20-5.40The [facility] CenterComment on above:Performed By: #### CBC ####[facility] H[address]nnffbvx[address] [place], [place] [address]MqKem AbdulWBC5.4 103/ul Normal4.0-11.0The [facility] CenterComment on above:Performed By: #### CBC ####[facility] Xptiucnieq6593 [place], [place] [address]ViLisette AbdulCT ABD/PELV W CONon 29-06-6386NA ABD/PELV W CONEXAM: CT ABD/PELV W CON [...] Electronically authenticated by: EMILY NAVARRETE Date: 2022-04-04 16:59NoUniversity Hospitals [facility] URINE PROFILEon 46-74-9598Irjobfuvk Ql (U)NegativeNormal NEGATIVEBlanchard Valley Health System [facility] Valley HospitalComment on above:Performed By: #### ROBERT KIRKLAND ####[facility] [address]mj[address] [id number]. Yilan ChangClarity (U)CLEARNormalCLEARBlanchard Valley Health System [facility] Valley HospitalComment on above: Performed By: #### ROBERT KIRKLAND ####[facility] [address] [address]Dr. Yilan ChangColor (U)LT. YELLOWNormalYELLOWBlanchard Valley Health System [facility] Valley HospitalComment on above:Performed By: #### ROBERT KIRKLAND ####[facility] Lylwtdxhrf[address] [place], [place] [address]Dr. Yilan ChangERUAHD A micrscopic examination will be performed if indicated.NormalThe [facility] CenterComment on above:Performed By: #### ROBERT KIRKLAND ####[facility] Oyynxtjhhe[address] [place], [place] [address]Dr. Yilan ChangGlucose Ql (U) NegativeNormalNEGATIVEBlanchard Valley Health System [facility] Valley HospitalComment on above:Performed By: #### ROBERT KIRKLAND ####[facility] Jnzpssotlx[address] [place], [place] [address]Dr. Yilan ChangHemoglobin Ql (U)SMALLAbnormalNEGATIVEBlanchard Valley Health System [facility] Comment on above:Performed By: #### ROBERT KIRKLAND ####[facility] Lkolvtrnuo[address] [place], [place] [address]Dr. Yilan ChangKetones Ql (U) NegativeNormalNEGATIVEBlanchard Valley Health System [facility] Valley HospitalComment on above:Performed By: #### ROBERT KIRKLAND ####[facility] Nfsnfiiyus[address] [place], [place] [address]Dr. Yilan ChangLEUKOCYTESTRACEAbnormalNEGATIVEBlanchard Valley Health System [facility] Valley HospitalComment on above:Performed By: #### ROBERT KIRKLAND ####[facility] [address] [id number]. Grace AbdulNitrite Ql (U)NegativeNormal NEGATIVEThe [facility] CenterComment on above:Performed By: #### ROBERT KIRKLAND ####[facility] [address]xmod[address] [id number]. Grace ChangpH (U)7.5 [pH]Normal5-9The [facility] CenterComment on above: Performed By: #### ROBERT KIRKLAND ####[facility] Gmjznxeoko[address] [place], [place]Dr. Grace AbdulSPEC GRAVITY1.806Cvboaz1.005-<=1.025The [facility] CenterComment on above:Performed By: #### ROBERT KIRKLAND ####[facility] Fydanduewm[address] [place], [place]Dr. Grace AbdulUA PROTEINNegativeNormalNEGATIVE/ TRACEThe Goodman HospitalComment on above: Performed By: #### ROBERT KIRKLAND ####[facility] Dmsbbfputd48[address] [place], [place]Dr. Grace AbdulUR MICRO INDINDICATEDNormalThe [facility] CenterComment on above:Performed By: #### ROBERT KIRKLAND ####[facility] Wavutnkdxj68[address] [place], [place]Dr. Grace AbdulUrobilinogen Qn (U)0.2 {Ashley'U}/dLNormal0.2 - 1.0The [facility] CenterComment on above: Performed By: #### GINA KIRKLANDRO ####[facility] Feckajrrce[address] [place], [place]Dr. Grace AbdulLIPASEon 87-09-7070Djnveg [Catalytic activity/Vol]115.0 U/DKyhkkm63.0-393.0The [facility] CenterComment on above: Performed By: #### CVDTBH #### [facility] Laboratory [address] [place], [place] [address] Dr. Grace Reno 14(COMP METB)on 83-55-3345Wpjhiwj [Mass/Vol]3.6 g/dLNormal 3.4-5.0The [facility] CenterComment on above:Performed By: #### CVDTBH #### [facility] Laboratory [address] [place] [address] Dr. Grace AbdulAlbumin/Globulin [Mass ratio]1.1 {ratio}NormalThe [facility] CenterComment on above:Performed By: #### CVDTBH #### [facility] Laboratory [address] [place] [address] Dr. Grace CalderonP [Catalytic activity/Vol]74 U/DDlonjb60-367Iul [facility] CenterComment on above:Performed By: #### CVDTBH #### [facility] Laboratory [address] [place] [address] Dr. Grace CalderonT [Catalytic activity/Vol]23 U/UKzxdsy39-78Nkm [facility] CenterComment on above:Performed By: #### CVDTBH #### [facility] [address] [place] [address] Dr. Grace Kauffmanon gap [Moles/Vol]12.1 mmol/LNormalThe [facility] Comment on above:Performed By: #### CVDTBH #### [facility] Laboratory [address] [place] [address] Dr. Grace AbdulAST [Catalytic activity/Vol]21 U/UFdkkim89-72Xer [facility] CenterComment on above:Performed By: #### CVDTBH #### [facility] [address] [place] [address] Dr. Grace AbdulBilirubin [Mass/Vol]0.2 mg/dLNormal0.2-1.0The [facility] Comment on above:Performed By: #### CVDTBH #### [facility] [address] [place] [address] Dr. Grace AbdulCalcium [Mass/Vol]9.3 mg/dLNormal8.5-10.1The [facility] Comment on above:Performed By: #### CVDTBH #### [facility] [address] [place] [address] Dr. Grace AbdulChloride [Moles/Vol]99 mmol/AYczawv88-648Ibd [facility] Comment on above:Performed By: #### CVDTBH #### [facility] Laboratory [address] [place] [address] Dr. Grace AbdulCO2 [Moles/Vol]31.2 mmol/EWwmhbv32.0-32.0The [facility] Comment on above:Performed By: #### CVDTBH #### [facility] Laboratory [address] [place] [address] Dr. Grace AbdulCreatinine [Mass/Vol]1.22 mg/dLCritically high0.55-1.02The [facility] CenterComment on above:Performed By: #### CVDTBH #### [facility] [address] [place] [address] Dr. Edwards ChangEGFR-AF JWWZYOJT32 mL/min/1.97x8Uqipqlwjjq low>=60The [facility] CenterComment on above:Performed By: #### CVDTBH #### [facility] Laboratory [address] [place] [address] Dr. Grace RichardGFR-NON AF GIOXADMM82 mL/min/1.73c4Uullsoihpf low>=60The [facility] CenterComment on above:Performed By: #### CVDTBH #### [facility] [address] [place] [address] Dr. Grace AbdulGlobulin (S) [Mass/Vol]3.3 g/dLNormalThe [facility] CenterComment on above:Performed By: #### CVDTBH #### [facility] [address] [place] [address] Dr. Grace AbdulGlucose [Mass/Vol]115 mg/dLCritically duza56-359Jdh [facility] CenterComment on above:Performed By: #### CVDTBH #### [facility] [address] [place] [address] Dr. Grace AbdulPotassium [Moles/Vol]3.3 mmol/LCritically low3.5-5.1The [facility] CenterComment on above:Performed By: #### CVDTBH #### [facility] [address] [address] [address] Grace AbdulProtein [Mass/Vol]6.9 g/dLNormal6.4-8.2The [facility] Comment on above:Performed By: #### CVDTBH #### [facility] [address] [address] [address] Grace AbdulSodium [Moles/Vol]139 mmol/MDmcxxo801-272Fiq [facility] Comment on above:Performed By: #### CVDTBH #### [facility] [address] [address] [address] Grace Bernal nitrogen [Mass/Vol]23.0 mg/dLCritically high7.0-18.0The [facility] CenterComment on above:Performed By: #### CVDTBH #### [facility] [address] [address] [address] Grace Bernal nitrogen/Creatinine [Mass ratio]18.9 mg/mgNormalThe [facility] CenterComment on above:Performed By: #### CVDTBH #### [facility] [address] [address] [address] Grace Marcos MICROSCOPIC ONLYon 77-30-0809TYGRGDERAHSF SEENNormalNONE SEENThe [facility] CenterComment on above:Performed By: #### MARITA UMICRO ####[facility] Avcxaoxjbc[address] [place], [place]Dr. Grace Dunncteria identified Cx Nom (U)NOT INDICATEDNormUniversity Hospitals Portage Medical CenterComment on above:Performed By: #### MARITA UMICRO ####[facility] Xkbkklfxei79[address] [place], [place]Dr. Garce AbdulCASTNONE SEEN NormalNONE SEENBlanchard Valley Health System Blanchard Valley HospitalComment on above:Performed By: #### MARITA UMICRO ####[facility] Sgvjlnpahs[address] [place], [place] [address]UuDr. Grace Pinedoystals LM Nom (Urine sed)NONE SEENNormalNONE SEENThe [facility] CenterComment on above:Performed By: #### ERUR, UMICRO ####[facility] [address]fu[address] [id number]. Grace Abdul Epithelial cells LM Ql (Urine sed)RARENormalNONE SEEN /RAREThe [facility] Comment on above:Performed By: #### GINA KIRKLANDRO ####[facility] [address]xtu[address] [id number]. Grace ChangMUCOUSNONE SEEN NormalNONE SEENThe [facility] CenterComment on above:Performed By: #### MARITA UMICRO ####[facility] [address]crm[address] [address]Dr. Grace AbdulHfvcjADD5-3Obsnas1-8Yoq [facility] CenterComment on above: Performed By: #### GODWIN KIRKLANDICRO ####[facility] [address]gyest[address] [address]Dr. Grace AbdulWBC0-2AbnormalNONE SEENThe [facility] CenterComment on above:Performed By: #### MARITA ICRO ####[facility] Cfzgcwik[address] [place], [place] [address]Dr. Grace AbdulBNPon 80-26-6924Vlijzrlureh peptide B (Bld) [Mass/Vol]665.0 pg/mLNormal<=1,800.0The [facility] CenterComment on above:Performed By: #### BMP #### [facility] Laboratory [address] [address] [address] Grace Casey AUTO DIFFon 80-21-6025BBGF #0.0 103/ulNormal0.0-0.1The [facility] CenterComment on above:Performed By: #### CBC ####[facility] Rrhaggbbbx[address] [place], [place] [address]Dr.Grace AbdulBasophils/100 WBC (Bld)0.5 %Normal0.2-2.0The [facility] CenterComment on above:Performed By: #### CBC ####[facility] [address]zhqfkilx[address] [place], [place] [address]Dr.Grace ChangEO #0.1 103/ulNormal0.0-0.7The [facility] HospitalComment on above:Performed By: #### CBC ####[facility] Ohqmmakvee[address] [place], [place] [address]Dr.Grace ChangEosinophils/100 WBC (Bld)1.9 %Normal 0.9-7.0The [facility] HospitalComment on above:Performed By: #### CBC ####[facility] Bxszukvtjn[address] [place], [place] [address]Dr.Benitalee ann Abdul Erythrocyte distribution width (RBC) [Ratio]13.4 %Wdkrnt07.0-15.0The [facility] HospitalComment on above:Performed By: #### CBC ####[facility] [address]hdkdpgdkb[address] [place], [place] [address]Dr.Benitalee ann ChangHematocrit (Bld) [Volume fraction]36.2 %Qesbfw94.0-48.0The [facility] CenterComment on above:Performed By: #### CBC ####[facility] Idxiipvifv[address] [place], [place] [address]Dr.Grace ChangHemoglobin (Bld) [Mass/Vol]11.9 g/dL Critically low12.0-16.0The Goodman HospitalComment on above:Performed By: #### CBC ####[facility] Tjzdpkycfw[address] [place], [place] [address]Dr. Grace ChangIG #0.01 10e3/ulNormal0.00-0.03The Goodman HospitalComment on above: Performed By: #### CBC ####[facility] Zoucevstdp8[address] [place], [place] [address]Dr.Grace ChangIG %0.2 %Normal0.0-0.5The [facility] CenterComment on above:Performed By: #### CBC ####[facility] Mhgndgwxse[address] [place], [place] [address]Dr.Grace ChangLYMPH #0.5 103/ulCritically low1.2-3.8The [facility] CenterComment on above:Performed By: #### CBC ####[facility] [address] [place] [address]Dr.Grace AbdulLymphocytes/100 WBC (Bld)11.5 %Critically low20.5-60.0The [facility] CenterComment on above:Performed By: #### CBC ####[facility] V[address]zozl[address] [place] [address]Dr.Grace AbdulMANUAL DIFF REQ NONormalThe [facility] CenterComment on above:Performed By: #### CBC ####[facility] Zfllfljbcp[address] [place], [place] [address]Dr. Grace AbdulH (RBC) [Entitic mass]31.6 uqUxhfjj53.7-34.0The [facility] Comment on above:Performed By: #### CBC ####[facility] Vsvkcfgtyb[address] [place], [place] [address]Dr.Grace AbdulHC (RBC) [Mass/Vol]32.9 g/dL Tylnbd02.9-35.2The [facility] CenterComment on above:Performed By: #### CBC ####[facility] Copxarjjwm58[address] [place], [place] [address]Dr. Grace AbdulV (RBC) [Entitic vol]96.0 gMAgggjw59.0-99.0The [facility] Comment on above:Performed By: #### CBC ####[facility] Zpdzntwrwy4[address] [place], [place] [address]Dr.Grace AbdulMONO #0.6 103/ulNormal0.3-0.8 The [facility] CenterComment on above:Performed By: #### CBC ####[facility] Klhgazjszp01[address] [place], [place] [address]Dr.Grace Abdul Monocytes/100 WBC (Bld)14.4 %Critically high1.7-12.0The [facility] CenterComment on above:Performed By: #### CBC ####[facility] Gedloqqbzt99[address] [place], [place] [address]Dr.Grace AbdulNEUT #3.0 103/ulNormal1.4-6.5The [facility] CenterComment on above:Performed By: #### CBC ####[facility] [address]fuwcndca[address] [place] [address]Dr.Grace AbdulNeutrophils/100 WBC (Bld)71.5 %Otgefd83.0-75.0The [facility] CenterComment on above:Performed By: #### CBC ####[facility] Gogpqegxhm[address] [place] [address]Dr.Grace AbdulPlatelet mean volume (Bld) [Entitic vol]9.2 fLCritically low 9.5-13.5The [facility] CenterComment on above:Performed By: #### CBC ####[facility] I[address]wxtzun[address] [place] [address]Dr. Grace YbnycTEI314 103/lvUplmll373-703Ulc [facility] CenterComment on above: Performed By: #### CBC ####[facility] Upsbciinkg[address] [place] [address]Dr.Grace AbdulRBC3.77 106/ulCritically low4.20-5.40The [facility] CenterComment on above:Performed By: #### CBC ####[facility] Qzjccpxjml4[address] [place] [address]Dr.Grace AbdulWBC4.2 103/ul Normal4.0-11.0The [facility] CenterComment on above:Performed By: #### CBC ####[facility] Mccjrxehbz[address] [place] [address]Dr. Grace AbdulFREE THYROXINE INDEX T7on 13-16-5440HFZ0.40Fdggap3.30-4.50The [facility] CenterComment on above:Performed By: #### BMP #### [facility] [address] [address] [address] Grace AbdulT3U35.0 %Lonrrv02.0-39.0The [facility] CenterComment on above: Performed By: #### BMP #### [facility] [address] [address] [address] Grace AbdulT4 [Mass/Vol]7.50 ug/dLNormal4.80-13.90The [facility] Comment on above:Performed By: #### BMP #### [facility] [address] [address] [address] Grace FairCOHEMOGLOBIN A1Con 70-04-9398JMG RECOMMENDATIONSEE BELOWNormal The [facility] CenterComaleda e. [facility] on above:Result Comment: ADA RECOMMENDED LIMIT 4.0 - 6.0 ADA THERAPEUTIC TARGET < 7.0 ACTION SUGGESTED > 7.0Performed By: #### A1C ####[facility] [address]ijhjkx[address] [place] [address]Dr. Grace AbdulGlucose [Mass/Vol]111 mg/dLNormUniversity Hospitals Portage Medical CenterComment on above:Performed By: #### A1C ####[facility] [address]xd[address]ijnmc[address] [place] [address]Dr.Yilan AbdulHbA1c (Bld) [Mass fraction]5.5 %Normal 4.5-6.2The [facility] CenterComment on above:Performed By: #### A1C ####[facility] Cgnczmpmnp[address] [place], [place] [address]Dr.Yilan AbdulIRONon 00-54-0316Qhot [Mass/Vol]50.0 ug/bGMluvbw97.0-170.0The [facility] CenterComment on above:Performed By: #### IRON, VITAD, VITB12 ####[facility] [address]ookxef[address] [place] [address]DrLisette AbdulLIPID PROFILE on 06-22-2013FEAV-HDL RATIO NORMSEE BELOWWayne HealthCare Main CampusComment on above:Result Comment: 3.3 - 4.4 LOW RISK 4.4 - 7.1 AVERAGE RISK 7.1 - 11.0 MODERATE RISK >11.0 HIGH RISKPerformed By: #### BMP #### [facility] [address] [address] [address] Grace AbdulCholesterol [Mass/Vol]182 mg/dLNormal<=200The [facility] Comment on above:Performed By: #### BMP #### [facility] [address] [address] [address] Grace Greeresterol in HDL [Mass/Vol]60 mg/tAXudpwg43-21Cfo [facility] CenterComment on above:Performed By: #### BMP #### [facility] [address] [address] [address] Grace AbdulCholesterol in LDL [Mass/Vol]101.2 mg/dLWayne HealthCare Main CampusComment on above:Performed By: #### BMP #### [facility] [address] [address] [address] Grace AbdulCholesterol.total/Cholesterol in HDL [Mass ratio]3.0 {ratio} NormalThe [facility] CenterComment on above:Performed By: #### BMP #### [facility] [address] [place] [address] Dr. Grace Lopez NORMAL> or = 60 mg/dl - LOW CARDIOVASCULAR RISK <40 mg/dl - HIGH CARDIOVASCULAR RISKWayne HealthCare Main CampusComment on above:Performed By: #### BMP #### [facility] [address] [place] [address] Dr. Grace La CALC NORMALSEE BELOWWayne HealthCare Main CampusComment on above:Result Comment: <100 mg/dl OPTIMAL 100 - 129 mg/dl NEAR OR ABOVE OPTIMAL 130 - 159 mg/dl BORDERLINE HIGH 160 - 189 mg/dl HIGH >190 mg/dl VERY HIGH Performed By: #### BMP #### [facility] [address] [place] [address] Dr. Grace AbdulTriglyceride [Mass/Vol]104 mg/dLNormal<=150The [facility] Comment on above:Performed By: #### BMP #### [facility] [address] [place] [address] Dr. Grace StarksLDL CALC20.8 mg/dLNoLicking Memorial HospitalComment on above: Performed By: #### BMP #### [facility] [address] [place] [address] Dr. Grace AbdulPROF 14(COMP METB)on 30-56-4089Qakgttr [Mass/Vol]3.5 g/dLNormal 3.4-5.0The [facility] CenterComment on above:Performed By: #### BMP #### [facility] [address] [place] [address] Dr. Grace AbdulAlbumin/Globulin [Mass ratio]1.0 {ratio}NormalThe [facility] CenterComment on above:Performed By: #### BMP #### [facility] [address] [address] [address] Grace CalderonP [Catalytic activity/Vol]55 U/LSfsjsn07-458Hsv [facility] CenterComment on above:Performed By: #### BMP #### [facility] [address] [place] [address] Dr. Grace CalderonT [Catalytic activity/Vol]21 U/NSpfyhu50-78Vaa [facility] CenterComment on above:Performed By: #### BMP #### [facility] [address] [place] [address] Dr. Grace AbdulAnion gap [Moles/Vol]9.3 mmol/LNormalThe [facility] CenterComment on above:Performed By: #### BMP #### [facility] [address] [place] [address] Dr. Grace AbdulAST [Catalytic activity/Vol]21 U/LNqworg80-71Jyf [facility] CenterComment on above:Performed By: #### BMP #### [facility] [address] [place] [address] Dr. Grace AbdulBilirubin [Mass/Vol]0.3 mg/dLNormal0.2-1.0The [facility] Comment on above:Performed By: #### BMP #### [facility] [address] [place] [address] Dr. Grace AbdulCalcium [Mass/Vol]9.5 mg/dLNormal8.5-10.1The [facility] Comment on above:Performed By: #### BMP #### [facility] [address] [place] [address] Dr. Grace AbdulChloride [Moles/Vol]102 mmol/CAaqnow28-729Abj [facility] Comment on above:Performed By: #### BMP #### [facility] [address] [address] [address] Grace AbdulCO2 [Moles/Vol]28.5 mmol/KSgdcgb48.0-32.0The [facility] Comment on above:Performed By: #### BMP #### [facility] [address] [place] [address] Dr. Grace AbdulCreatinine [Mass/Vol]1.04 mg/dLCritically high0.55-1.02The [facility] CenterComment on above:Performed By: #### BMP #### [facility] [address] [place] [address] Dr. Edwards ChangEGFR-AF TANZANIAN>60Normal>=60The [facility] CenterComment on above:Performed By: #### BMP #### [facility] [address] [place] [address] Dr. Grace RichardGFR-NON AF HZUUQCSK12 mL/min/1.12t7Xqsvwxbuca low>=60The [facility] CenterComment on above:Performed By: #### BMP #### [facility] [address] [place] [address] Dr. Grace AbdulGlobulin (S) [Mass/Vol]3.5 g/dLNormalThe [facility] CenterComment on above:Performed By: #### BMP #### [facility] [address] [place] [address] Dr. Grace AbdulGlucose [Mass/Vol]102 mg/uMVtddvs19-815BujBlanchard Valley Health [facility] Comment on above:Performed By: #### BMP #### [facility] [address] [place] [address] Dr. Grace AbdulPotassium [Moles/Vol]3.8 mmol/LNormal3.5-5.1The [facility] Comment on above:Performed By: #### BMP #### [facility] [address] [place] [address] Dr. Grace AbdulProtein [Mass/Vol]7.0 g/dLNormal6.4-8.2The [facility] Comment on above:Performed By: #### BMP #### [facility] [address] [place] [address] Dr. Grace AbdulSodium [Moles/Vol]136 mmol/IJqmvxz654-902Nys [facility] Comment on above:Performed By: #### BMP #### [facility] [address] [address] [address] Grace AbdulUrea nitrogen [Mass/Vol]20.0 mg/dLCritically high7.0-18.0The [facility] CenterComment on above:Performed By: #### BMP #### [facility] [address] [address] [address] Grace AbdulUrea nitrogen/Creatinine [Mass ratio]19.2 mg/mgNoLicking Memorial HospitalComment on above:Performed By: #### BMP #### [facility] [address] [place] [address] Dr. Grace AbdulTSHoelida 27-87-1077BDY6.247 uIU/mLCritically low0.358-3.740The [facility] CenterComment on above:Performed By: #### BMP #### [facility] [address] [place] [address] Dr. Grace AbdulVITAMIN B12on 05-21-2715Vhbxdaluv (Vitamin B12) [Mass/Vol]762.0 pg/yIHhylmn474.0-986.0The [facility] CenterComment on above:Performed By: #### IRON, VITAD, VITB12 ####[facility] [address]ginadnqov[address] [place], [place] [address]Dr. Grace AbdulVITAMIN D 25 OHon 51-67-7556JDX D 25-OH 54.9 ng/mLNormalThe [facility] CenterComment on above:Performed By: #### IRON, VITAD, VITB12 ####[facility] [address] [place] [address]Dr. Grace AbdulVIT D RANGESSEE BELOWWayne HealthCare Main CampusComment on above:Result Comment: <20 ng/mL Vit D deficient 20 - <30 ng/mL Vit D insufficient 30 - 100 ng/mL Vit D sufficient >100 ng/mL Potential Toxicity Performed By: #### IRON, VITAD, VITB12 ####[facility] [address]awa[address] [place] [id number] Bocanegra MAMM SCREEN 3D CLEMENCIA CADon 34-45-8662WR MAMM SCREEN 3D CLEMENCIA CADPatient: ALEXA DELGADO Exam Date: 11/25/2021 : 1940 Gender:F Ordering : DR GALINA PALMRE . Admission #: [id number] Family : DR ARMANDO THAYER Order #: [id number] CLICK HERE TO VIEW EXAM RADIOLOGY REPORT [...] None Family Cancers None LOCATION: [facility] BREAST COMPOSITION: Scattered areas fibroglandular [...] by: Hermes Suarez MD on 11/25/2021 at 14:14[facility] CULTURE URINEon 45-13-5440RAGMWIS URINECulture Observations: LIGHT GROWTH OF MIXED GENITAL ALANIS. NO POTENTIAL PATHOGENS SEEN.NormalThe [facility] CenterComment on above:Performed By: #### URCX ####[facility] [address] [place] [id number]. Grace Crow PANEL (PCR) on 84-46-5090Xhqfbarhlv F 40/41Not detectedNormalNOT DETECTEDBlanchard Valley Health System [facility] Valley HospitalComment on above:Performed By: #### CBC #### [facility] [address] [address] [address] Grace AbdulAstrovirusNot detectedNormalNOT DETECTEDThe [facility] Comment on above:Performed By: #### CBC #### [facility] [address] [address] [address] rGace Meza. Diff toxin A/BNot detectedNormalNOT DETECTEDThe [facility] CenterComment on above:Performed By: #### CBC #### [facility] [address] [address] [address] Grace BarnespylobacterNot detectedNormalNOT DETECTEDThe [facility] Comment on above:Performed By: #### CBC #### [facility] [address] [address] [address] Grace AbdulCryptosporidiumNot detectedNormalNOT DETECTEDThe [facility] CenterComment on above:Performed By: #### CBC #### [facility] [address] [address] [address] Grace Whitney. CayetanensisNot detectedNormalNOT DETECTEDThe [facility] CenterComment on above:Performed By: #### CBC #### [facility] [address] [address] [address] Grace Lizarraga Coli G309Cjo ApplicableNormalNot ApplicableThe [facility] CenterComaleda e. [facility] medical center on above:Performed By: #### CBC #### [facility] [address] [address] [address] Grace Lizarraga histolyticaNot detectedNormalNOT DETECTEDThe [facility] Comment on above:Performed By: #### CBC #### [facility] [address] [address] [address] Grace RichardAECNot detectedNormalNOT DETECTEDThe [facility] CenterComment on above:Performed By: #### CBC #### [facility] [address] [address] [address] Grace RichardIECNot detectedNormalNOT DETECTEDThe [facility] CenterComaleda e. l[facility] medical center on above:Performed By: #### CBC #### [facility] [address] [address] [address] Grace RichardPECNot detectedNormalNOT DETECTEDThe [facility] CenterComment on above:Performed By: #### CBC #### [facility] [address] [address] [address] Grace Groves detectedNormalNOT DETECTEDBlanchard Valley Health System Bl[facility] Valley HospitalComment on above:Performed By: #### CBC #### [facility] [address] [address] [address] Grace Huang LambliaNomerritt detectedNormalNOT DETECTEDBlanchard Valley Health System [facility] Comment on above:Performed By: #### CBC #### [facility] [address] [address] [address] Grace Reid CONTROLSFort Hamilton HospitalComment on above:Performed By: #### CBC #### [facility] [address] [address] [address] Grace DIETRICH HEADERGI [facility] Comment on above:Performed By: #### CBC #### [facility] [address] [address] [address] Grace Tena ECOLIGI PANEL DIARRHEAGENIC E.COLI / SHIGELLAWayne HealthCare Main CampusComment on above:Performed By: #### CBC #### [facility] [address] [address] [address] Grace Tena INFOSEFisher-Titus Medical CenterComaleda e. [facility] on above: Result Comment: EAEC- Enteroaggregative E. Coli EPEC- Enteropathogenic E. Coli ETEC- Enterotoxigenic E. Coli lt/st STEC- Shigella-like toxin-producing E. Coli stx1/stx2 EIEC- Shigella/Enteroinvasive E. ColiPerformed By: #### CBC #### [facility] [address] [address] [address] Grace Tena PARASITESGI PANEL [facility] Comment on above:Performed By: #### CBC #### [facility] [address] [address] [address] Grace Tena VIRUSGI PANEL [facility] CenterComment on above:Performed By: #### CBC #### [facility] [address] [address] [address] Grace Pinarovirus GI/GIINot detectedNormalNOT DETECTEDThe [facility] CenterComment on above:Performed By: #### CBC #### [facility] [address] [address] [address] Grace Amin. ShigelloidesNot detectedNormalNOT DETECTEDThe [facility] CenterComment on above:Performed By: #### CBC #### [facility] [address] [address] [address] Grace AbdulRotavirus ANot detectedNormalNOT DETECTEDThe [facility] Comment on above:Performed By: #### CBC #### [facility] [address] [address] [address] Grace AbdulSalmonellaNot detectedNormalNOT DETECTEDThe [facility] Comment on above:Performed By: #### CBC #### [facility] [address] [address] [address] Grace AbdulSapovirusNot detectedNormalNOT DETECTEDThe [facility] Comment on above:Performed By: #### CBC #### [facility] [address] [address] [address] Grace AbdulSTECNot detectedNormalNOT DETECTEDThe [facility] CenterComaleda e. [facility] medical center on above:Performed By: #### CBC #### [facility] [address] [address] [address] Grace BenzbrioNot detectedNormalNOT DETECTEDThe [facility] CenterComment on above:Performed By: #### CBC #### [facility] [address] [address] [address] Grace Rappio CholeraNot detectedNormalNOT DETECTEDBlanchard Valley Health System [facility] Comment on above:Performed By: #### CBC #### [facility] [address] [address] [address] Grace Montoya. EnterocoliticaNot detectedNormalNOT DETECTEDThe [facility] CenterComment on above:Performed By: #### CBC #### [facility] [address] [address] [address] Grace Cespedes RANDOM W/MICROSCOPICon 88-75-3833QTFZRONKEJGS SEENNormalNONE SEENBlanchard Valley Health System [facility] Valley HospitalComment on above:Performed By: #### UAMIC ####[facility] Enhpgqztcn[address] [place], [place] [address]Dr. Grace Abdul Bilirubin Ql (U)NegativeNormalNEGATIVEBlanchard Valley Health System [facility] Valley HospitalComment on above: Performed By: #### UAMIC ####[facility] Omvwphgnvm[address] [place], [place] [address]Dr. Grace ChangCASTNONE SEENNormalNONE SEENBlanchard Valley Health System [facility] Valley HospitalComment on above:Performed By: #### UAMIC ####[facility] [address]tqcdpgzdn[address] [place], [place] [address]Dr. Grcae AbdulClarity (U) CLEARNormalCLEARBlanchard Valley Health System [facility] HospitalComment on above:Performed By: #### UAMIC ####[facility] [address] [place], [place] [address]Dr. Grace AbdulColor (U)LT. YELLOWNormalYELLOWBlanchard Valley Health System [facility] Valley HospitalComment on above: Performed By: #### UAMIC ####[facility] Lyymnyasnd[address] [place], [place] [address]Dr. Grace AbdulCrystals LM Nom (Urine sed)NONE SEEN NormalNONE SEENBlanchard Valley Health System [facility] Valley HospitalComaleda e. [facility] medical center on above:Performed By: #### UAMIC ####[facility] M[address]ov[address]gyg[address] [place], [place] [address]Dr. Grace ChangEpithelial cells LM Ql (Urine sed)FEWAbnormalNONE SEEN /RAREThe [facility] CenterComment on above:Performed By: #### UAMIC ####[facility] [address]ychdxekf[address] [place], [place] [address]Dr. Grace AbdulGlucose Ql (U)NegativeNormalNEGATIVEBlanchard Valley Health System [facility] HospitalComment on above:Performed By: #### UAMIC ####[facility] [address]xwrrwjx[address] [place], [place] [address]Dr. Grace AbdulHemoglobin Ql (U)TRACE-INTACTAbnormalNEGATIVEBlanchard Valley Health System [facility] HospitalComment on above:Performed By: #### UAMIC ####[facility] [address] [place] [address]Dr. Yilan ChangKetones Ql (U) NegativeNormalNEGATIVEThe Goodman HospitalComment on above:Performed By: #### UAMIC ####[facility] [address]spdhtokj[address] [place], [place] [address]Dr. Yilan ChangLEUKOCYTESNegativeNormalNEGATIVEThe Goodman HospitalComment on above:Performed By: #### UAMIC ####[facility] Taxqaciwnr[address] [place], [place] [address]Dr. Yilan ChangMUCOUSNONE SEENNormalNONE SEENThe Goodman HospitalComment on above:Performed By: #### UAMIC ####[facility] [address]qumcwslc[address] [place], [place] [address]Dr. Yilan ChangNitrite Ql (U)NegativeNormalNEGATIVEThe Goodman HospitalComment on above:Performed By: #### UAMIC ####[facility] Plccqsmjzu[address] [place], [place] [address]Dr. Yilan ChangpH (U)7.5 [pH]Normal5-9The [facility] CenterComment on above:Performed By: #### UAMIC ####[facility] Ndtaiglcts[address] [place], [place] [address]Dr. Yilan DjznjGPI6-6Xqefnz4-5Gmd [facility] Comment on above:Performed By: #### UAMIC ####[facility] Nqyzwanhqq[address] [place], [place] [address]Dr. Yilan ChangSPEC GRAVITY1.010Normal 1.005-<=1.025The [facility] CenterComment on above:Performed By: #### UAMIC ####[facility] [address]yhsjfyz[address] [place], [place] [address]Dr. Yilan ChangUA PROTEINNegativeNormalNEGATIVE/ TRACEThe Goodman HospitalComment on above:Performed By: #### UAMIC ####[facility] Vsktgwpvfp[address] [place], [place] [address]Dr. Yilan ChangUrobilinogen Qn (U)0.2 {Ashley'U}/dL Normal0.2 - 1.0The [facility] CenterComment on above:Performed By: #### UAMIC ####[facility] [address]irsart[address] [place] [address]Dr. Grace AbdulWBCNONE SEENNormalNONE SEENThe [facility] CenterComment on above: Performed By: #### UAMIC ####[facility] [address]wtq[address] [place] [address]Dr. Grace MoranC AUTO DIFFon 68-69-0494YFVT #0.0 103/ulNormal0.0-0.1The [facility] CenterComment on above:Performed By: #### CBC #### [facility] [address] [place] [address] Dr. Grace AbdulBasophils/100 WBC (Bld)0.4 %Normal0.2-2.0The [facility] Comment on above:Performed By: #### CBC #### [facility] [address] [address] [address] Grace Blunt #0.1 103/ulNormal0.0-0.7The [facility] CenterComment on above: Performed By: #### CBC #### [facility] [address] [place] [address] Dr. Grace Richardosinophils/100 WBC (Bld)1.5 %Normal0.9-7.0[facility] Comment on above:Performed By: #### CBC #### [facility] [address] [address] [address] Grace Richardrythrocyte distribution width (RBC) [Ratio]13.2 %Qsjbbd40.0-15.0 [facility] CenterComment on above:Performed By: #### CBC #### [facility] [address] [place] [address] Dr. Grace AbdulHematocrit (Bld) [Volume fraction]31.9 %Critically low36.0-48.0 [facility] CenterComment on above:Performed By: #### CBC #### [facility] [address] [address] [address] Grace AbdulHemoglobin (Bld) [Mass/Vol]10.5 g/dLCritically low12.0-16.0The [facility] CenterComment on above:Performed By: #### CBC #### [facility] [address] [place] [address] Dr. Grace Son #0.01 10e3/ulNormal0.00-0.03The [facility] CenterComment on above:Performed By: #### CBC #### [facility] [address] [place] [address] Dr. Grace Son %0.2 %Normal0.0-0.5The [facility] CenterComment on above: Performed By: #### CBC #### [facility] [address] [place] [address] Dr. Grace Hamilton #0.7 103/ulCritically low1.2-3.8The [facility] Comment on above:Performed By: #### CBC #### [facility] [address] [place] [address] Dr. Grace Willishocytes/100 WBC (Bld)14.8 %Critically low20.5-60.0The [facility] CenterComment on above:Performed By: #### CBC #### [facility] [address] [place] [address] Dr. Grace FloresUAL DIFF REQNONormalThe [facility] CenterComment on above: Performed By: #### CBC #### [facility] [address] [place] [address] Dr. Grace Perdomo (RBC) [Entitic mass]31.4 suChpcnk48.7-34.0The [facility] CenterComment on above:Performed By: #### CBC #### [facility] [address] [place] [address] Dr. Grace Perdomo (RBC) [Mass/Vol]32.9 g/dDYkkpyh76.9-35.2The [facility] CenterComment on above:Performed By: #### CBC #### [facility] [address] [address] [address] Grace PerdomoV (RBC) [Entitic vol]95.5 hACryrvt64.0-99.0The [facility] on above:Performed By: #### CBC #### [facility] [address] [place] [address] Dr. Grace Barrios #0.6 103/ulNormal0.3-0.8The [facility] CenterComment on above:Performed By: #### CBC #### [facility] [address] [place] [address] Dr. Grace Riderocytes/100 WBC (Bld)13.4 %Critically high1.7-12.0The [facility] on above:Performed By: #### CBC #### [facility] [address] [place] [address] Dr. Grace Brar #3.3 103/ulNormal1.4-6.5The [facility] on above:Performed By: #### CBC #### [facility] [address] [place] [address] Dr. Grace Solitarioutrophils/100 WBC (Bld)69.7 %Rnfwqc89.0-75.0The [facility] on above:Performed By: #### CBC #### [facility] [address] [place] [address] Dr. Grace Stokeslet mean volume (Bld) [Entitic vol]9.1 fLCritically low 9.5-13.5The [facility] on above:Performed By: #### CBC #### [facility] [address] [place] [address] Dr. Garce AbdulPLT335 103/wqKqntqs649-873Mpf [facility] on above: Performed By: #### CBC #### [facility] [address] [place] [address] Dr. Grace AbdulRBC3.34 106/ulCritically low4.20-5.40The [facility] on above:Performed By: #### CBC #### [facility] [address] [address] [address] Grace AbdulWBC4.8 103/ulNormal4.0-11.0The [facility] CenterComment on above: Performed By: #### CBC #### [facility] [address] [address] [address] Grace Michelle THYROXINE INDEX T7on 49-14-4695DLE6.15Critically low 1.30-4.50The [facility] CenterComment on above:Performed By: #### T7, CMP, TSH ####[facility] [address] [id number]. Grace AbdulT3U31.0 %Mejvxh41.0-39.0The [facility] CenterComment on above: Performed By: #### T7, CMP, TSH ####[facility] [address] [place], [place]Dr. Grace AbdulT4 [Mass/Vol]3.70 ug/dLCritically low 4.80-13.90The [facility] CenterComment on above:Performed By: #### T7, CMP, TSH ####[facility] [address] [id number]. Grace AbdulIRONon 13-24-3165Grnu [Mass/Vol]52.0 ug/sDZfvtzo18.0-170.0The [facility] CenterComment on above:Performed By: #### CVDTBH #### [facility] [address] [address] [address] Grace Reno 14(COMP METB)on 47-26-8488Pvaxotb [Mass/Vol]3.5 g/dLNormal 3.4-5.0The [facility] CenterComment on above:Performed By: #### T7, CMP, TSH ####[facility] [address] [id number]. Grace AbdulAlbumin/Globulin [Mass ratio]1.1 {ratio}NormalThe [facility] Comment on above:Performed By: #### T7, CMP, TSH ####[facility] [address] [place], [place]Dr. Yilan ChangALP [Catalytic activity/Vol]69 U/RSzqvyx16-225Ris [facility] CenterComment on above:Performed By: #### T7, CMP, TSH ####[facility] [address] [place], [place]Dr. Yilan ChangALT [Catalytic activity/Vol]51 U/LNormal 14-59The [facility] CenterComment on above:Performed By: #### T7, CMP, TSH ####[facility] [address] [place], [place]Dr. Yilan ChangAnion gap [Moles/Vol]11.5 mmol/LNormalThe [facility] CenterComment on above:Performed By: #### T7, CMP, TSH ####[facility] [address] [place], [place]Dr. Yilan ChangAST [Catalytic activity/Vol]24 U/L Zokino00-37Nds [facility] CenterComment on above:Performed By: #### T7, CMP, TSH ####[facility] [address] [place], [place]Dr. Yilan ChangBilirubin [Mass/Vol]0.2 mg/dLNormal0.2-1.0The [facility] Comment on above:Performed By: #### T7, CMP, TSH ####[facility] [address] [place], [place] [id number]. Yilan ChangCalcium [Mass/Vol]9.3 mg/dLNormal8.5-10.1The [facility] Healthment on above:Performed By: #### T7, CMP, TSH ####[facility] [address] [place], [place] [id number]. Yilan ChangChloride [Moles/Vol]98 mmol/LNormal 98-107The [facility] CenterComment on above:Performed By: #### T7, CMP, TSH ####[facility] [address] [place], [place] [id number]. Yilan ChangCO2 [Moles/Vol]28.7 mmol/ABaucri19.0-32.0The [facility] CenterComment on above:Performed By: #### T7, CMP, TSH ####[facility] [address] [id number]. Yilan ChangCreatinine [Mass/Vol]1.11 mg/dLCritically high0.55-1.02The [facility] CenterComment on above:Performed By: #### T7, CMP, TSH ####[facility] [address] [address]Dr. Yilan ChangEGFR-AF BMWPOLNR93 mL/min/1.73m2 Critically low>=60The [facility] CenterComment on above:Performed By: #### T7, CMP, TSH ####[facility] [address] [place], [place] [address]Ge. Yilan ChangEGFR-NON AF HYPSEODS45 mL/min/1.06z1Nsmlunlkvt low>=60The [facility] CenterComment on above:Performed By: #### T7, CMP, TSH ####[facility] [address] [place], [place] [address]Dr. Yilan Abdul Globulin (S) [Mass/Vol]3.3 g/dLNormalThe [facility] CenterComment on above: Performed By: #### T7, CMP, TSH ####[facility] [address] [place], [place]Dr. Yilan ChangGlucose [Mass/Vol]88 mg/qVHuciwv02-127 The [facility] CenterComment on above:Performed By: #### T7, CMP, TSH ####[facility] [address] [place], [place]Dr. Yilan ChangPotassium [Moles/Vol]4.2 mmol/LNormal3.5-5.1The [facility] Comment on above:Performed By: #### T7, CMP, TSH ####[facility] [address] [address]Dr. Yilan ChangProtein [Mass/Vol]6.8 g/dLNormal6.4-8.2The [facility] CenterComment on above:Performed By: #### T7, CMP, TSH ####[facility] [address] [place], [place]Dr. Yilan ChangSodium [Moles/Vol]134 mmol/LCritically bjr129-868Gxw [facility] CenterComment on above:Performed By: #### T7, CMP, TSH ####[facility] [address] [id number]. Yilan ChangUrea nitrogen [Mass/Vol]33.0 mg/dLCritically high7.0-18.0The [facility] CenterComment on above:Performed By: #### T7, CMP, TSH ####[facility] [address] [address]Dr. Yilan ChangUrea nitrogen/Creatinine [Mass ratio]29.7 mg/mgNormalThe [facility] CenterComment on above:Performed By: #### T7, CMP, TSH ####[facility] [address] [id number]. Grace AbdulTSHon 81-86-4788TAM8.469 uIU/mL Normal0.358-3.740The [facility] CenterComment on above:Performed By: #### T7, CMP, TSH ####[facility] [address] [id number]. Grace MoranC AUTO DIFFon 05-24-4569QZUG #0.0 103/ulNormal0.0-0.1The [facility] CenterComment on above:Performed By: #### CVDTBH #### [facility] [address] [address] [address] Grace AbdulBasophils/100 WBC (Bld)0.2 %Normal0.2-2.0The [facility] Comment on above:Performed By: #### CVDTBH #### [facility] [address] [address] [address] Grace Blunt #0.1 103/ulNormal0.0-0.7The [facility] CenterComment on above: Performed By: #### CVDTBH #### [facility] [address] [place] [address] Dr. Grace Richardosinophils/100 WBC (Bld)0.9 %Normal0.9-7.0[facility] Comment on above:Performed By: #### CVDTBH #### [facility] [address] [place] [address] Dr. Grace Richardrythrocyte distribution width (RBC) [Ratio]12.8 %Puqwdi71.0-15.0 [facility] HospitalComment on above:Performed By: #### CVDTBH #### [facility] [address] [place] [address] Dr. Grace AbdulHematocrit (Bld) [Volume fraction]35.2 %Critically low36.0-48.0 [facility] HospitalComment on above:Performed By: #### CVDTBH #### [facility] [address] [place] [address] Dr. Grace AbdulHemoglobin (Bld) [Mass/Vol]12.1 g/xCLkypuo05.0-16.0[facility] HospitalComment on above:Performed By: #### CVDTBH #### [facility] [address] [place] [address] Dr. Grace Son #0.05 10e3/ulCritically high0.00-0.03[facility] Comment on above:Performed By: #### CVDTBH #### [facility] [address] [place] [address] Dr. Grace Son %0.6 %Critically high0.0-0.5ThKindred HealthcareComment on above:Performed By: #### CVDTBH #### [facility] [address] [place] [address] Dr. Grace Hamilton #0.6 103/ulCritically low1.2-3.8The [facility] Comment on above:Performed By: #### CVDTBH #### [facility] [address] [place] [address] Dr. Grace Hillmphocytes/100 WBC (Bld)7.4 %Critically low20.5-60.0The [facility] CenterComment on above:Performed By: #### CVDTBH #### [facility] [address] [place] [address] Dr. Grace Gee DIFF REQNONormalThe [facility] CenterComment on above: Performed By: #### CVDTBH #### [facility] [address] [place] [address] Dr. Grace Perdomo (RBC) [Entitic mass]31.5 opWgklim33.7-34.0The [facility] CenterComment on above:Performed By: #### CVDTBH #### [facility] [address] [place] [address] Dr. Grace Perdomo (RBC) [Mass/Vol]34.4 g/lEOhkboc59.9-35.2The [facility] CenterComment on above:Performed By: #### CVDTBH #### [facility] [address] [place] [address] Dr. Grace Serrano (RBC) [Entitic vol]91.7 mZMunahq56.0-99.0The [facility] CenterComment on above:Performed By: #### CVDTBH #### [facility] [address] [place] [address] Dr. Grace Barrios #1.0 103/ulCritically high0.3-0.8The [facility] Comment on above:Performed By: #### CVDTBH #### [facility] [address] [place] [address] Dr. Grace Riderocytes/100 WBC (Bld)12.1 %Critically high1.7-12.0The [facility] CenterComment on above:Performed By: #### CVDTBH #### [facility] [address] [place] [address] Dr. Grace Brar #6.3 103/ulNormal1.4-6.5The [facility] CenterComment on above:Performed By: #### CVDTBH #### [facility] [address] [place] [address] Dr. Grace AbdulNeutrophils/100 WBC (Bld)78.8 %Critically high43.0-75.0The [facility] CenterComment on above:Performed By: #### CVDTBH #### [facility] [address] [place] [address] Dr. Grace AbdulPlatelet mean volume (Bld) [Entitic vol]9.1 fLCritically low 9.5-13.5The [facility] CenterComment on above:Performed By: #### CVDTBH #### [facility] [address] [place] [address] Dr. Grace AbdulPLT281 103/agJcqynz828-929Zga [facility] CenterComment on above: Performed By: #### CVDTBH #### [facility] [address] [place] [address] Dr. Grace AbdulRBC3.84 106/ulCritically low4.20-5.40The [facility] CenterComment on above:Performed By: #### CVDTBH #### [facility] [address] [place] [address] Dr. Grace AbdulWBC8.0 103/ulNormal4.0-11.0The [facility] CenterComment on above: Performed By: #### CVDTBH #### [facility] [address] [place] [address] Dr. Grace AbdulMAGNESIUMon 10-39-1730Wemqkgzef [Mass/Vol]1.9 mg/dLNormal1.8-2.4 The [facility] CenterComment on above:Performed By: #### CVDTBH #### [facility] [address] [place] [address] Dr. Grace AbdulPROF CHEM 8 (BAS METB)on 08-86-2106Hkokr gap [Moles/Vol]13.9 mmol/LNormalThe [facility] CenterComment on above:Performed By: #### CVDTBH #### [facility] [address] [place] [address] Dr. Grace AbdulCalcium [Mass/Vol]8.7 mg/dLNormal8.5-10.1The [facility] Comment on above:Performed By: #### CVDTBH #### [facility] [address] [place] [address] Dr. Grace AbdulChloride [Moles/Vol]101 mmol/NEuapow30-306Fcn [facility] Comment on above:Performed By: #### CVDTBH #### [facility] [address] [place] [address] Dr. Grace AbdulCO2 [Moles/Vol]24.3 mmol/WPwwmhv24.0-32.0The [facility] Comment on above:Performed By: #### CVDTBH #### [facility] [address] [place] [address] Dr. Grace AbdulCreatinine [Mass/Vol]0.89 mg/dLNormal0.55-1.02The [facility] CenterComment on above:Performed By: #### CVDTBH #### [facility] [address] [place] [address] Dr. Grace RichardGFR-AF TANZANIAN>60Normal>=60The [facility] CenterComment on above:Performed By: #### CVDTBH #### [facility] [address] [place] [address] Dr. Grace RichardGFR-NON AF TANZANIAN>60Normal>=60The [facility] CenterComment on above:Performed By: #### CVDTBH #### [facility] [address] [place] [address] Dr. Grace AbdulGlucose [Mass/Vol]97 mg/vRChbuui27-229Qrg [facility] Comment on above:Performed By: #### CVDTBH #### [facility] [address] [place] [address] Dr. Grace AbdulPotassium [Moles/Vol]3.2 mmol/LCritically low3.5-5.1The [facility] CenterComment on above:Performed By: #### CVDTBH #### [facility] [address] [place] [address] Dr. Grace Kaurum [Moles/Vol]136 mmol/NQqkepr568-213Mrq [facility] Comment on above:Performed By: #### CVDTBH #### [facility] [address] [place] [address] Dr. Grace Bernal nitrogen [Mass/Vol]14.0 mg/dLNormal7.0-18.0The [facility] CenterComment on above:Performed By: #### CVDTBH #### [facility] [address] [place] [address] Dr. Grace Bernal nitrogen/Creatinine [Mass ratio]15.7 mg/mgNormalThe [facility] CenterComment on above:Performed By: #### CVDTBH #### [facility] [address] [place] [address] Dr. Grace Casey AUTO DIFFon 17-57-3954NBFK #0.0 103/ulNormal0.0-0.1The [facility] CenterComment on above:Performed By: #### BMP #### [facility] [address] [place] [address] Dr. Grace AbdulBasophils/100 WBC (Bld)0.2 %Normal0.2-2.0[facility] Comment on above:Performed By: #### BMP #### [facility] [address] [place] [address] Dr. Grace Blunt #0.0 103/ulNormal0.0-0.7The [facility] CenterComment on above: Performed By: #### BMP #### [facility] [address] [place] [address] Dr. Grace Richardosinophils/100 WBC (Bld)0.5 %Critically low0.9-7.0The [facility] CenterComment on above:Performed By: #### BMP #### [facility] [address] [place] [address] Dr. Grace Richardrythrocyte distribution width (RBC) [Ratio]12.4 %Lrmqvs49.0-15.0 The [facility] CenterComment on above:Performed By: #### BMP #### [facility] [address] [place] [address] Dr. Grace AbdulHematocrit (Bld) [Volume fraction]33.6 %Critically low36.0-48.0 The [facility] CenterComment on above:Performed By: #### BMP #### [facility] [address] [place] [address] Dr. Grace AbdulHemoglobin (Bld) [Mass/Vol]11.8 g/dLCritically low12.0-16.0The [facility] CenterComment on above:Performed By: #### BMP #### [facility] [address] [place] [address] Dr. Grace AbdulIG #0.04 10e3/ulCritically high0.00-0.03The [facility] Comment on above:Performed By: #### BMP #### [facility] [address] [place] [address] Dr. Grace AbdulIG %0.7 %Critically high0.0-0.5The [facility] CenterComment on above:Performed By: #### BMP #### [facility] [address] [place] [address] Dr. Grace Hamilton #0.7 103/ulCritically low1.2-3.8The [facility] Comment on above:Performed By: #### BMP #### [facility] [address] [place] [address] Dr. Grace Hillmphocytes/100 WBC (Bld)11.1 %Critically low20.5-60.0The [facility] CenterComment on above:Performed By: #### BMP #### [facility] [address] [place] [address] Dr. Grace AbdulMANUAL DIFF REQNONormalThe [facility] CenterComment on above: Performed By: #### BMP #### [facility] [address] [place] [address] Dr. Grace Joy (RBC) [Entitic mass]31.5 ceFbmpwz94.7-34.0The [facility] CenterComment on above:Performed By: #### BMP #### [facility] [address] [address] [address] Grace PerdomoHC (RBC) [Mass/Vol]35.1 g/gIZsqsoc91.9-35.2The [facility] CenterComment on above:Performed By: #### BMP #### [facility] [address] [address] [address] Grace PerdomoV (RBC) [Entitic vol]89.6 cFFyumct03.0-99.0The [facility] HospitalComment on above:Performed By: #### BMP #### [facility] [address] [address] [address] Grace Barrios #0.9 103/ulCritically high0.3-0.8The [facility] Comment on above:Performed By: #### BMP #### [facility] [address] [address] [address] Grace Riderocytes/100 WBC (Bld)14.0 %Critically high1.7-12.0The [facility] CenterComment on above:Performed By: #### BMP #### [facility] [address] [address] [address] Grace Brar #4.5 103/ulNormal1.4-6.5The [facility] CenterComment on above:Performed By: #### BMP #### [facility] [address] [address] [address] Grace Solitarioutrophils/100 WBC (Bld)73.5 %Zsxtqm98.0-75.0The [facility] HospitalComment on above:Performed By: #### BMP #### [facility] [address] [address] [address] Grace Stokeslet mean volume (Bld) [Entitic vol]9.3 fLCritically low 9.5-13.5The [facility] CenterComment on above:Performed By: #### BMP #### [facility] [address] [address] [address] Grace AbdulPLT292 103/goLhxxuy552-977Cfn [facility] CenterComment on above: Performed By: #### BMP #### [facility] [address] [address] [address] Grace AbdulRBC3.75 106/ulCritically low4.20-5.40The [facility] CenterComment on above:Performed By: #### BMP #### [facility] [address] [address] [address] Grace AbdulWBC6.1 103/ulNormal4.0-11.0The [facility] CenterComment on above: Performed By: #### BMP #### [facility] [address] [place] [address] Dr. Grace AbdulCULTURE URINEon 12-42-7948PEMPOWS URINECulture Observations: LIGHT GROWTH OF MIXED GENITAL ALANIS. NO POTENTIAL PATHOGENS SEEN.NormalBl[facility]ard [facility] System [facility] HospitalComment on above:Performed By: #### URCX ####[facility] [address] [address]Dr. Grace RichardR URINE PROFILEon 19-77-3753Frvpvwcqt Ql (U)NegativeNormalNEGATIVEBlanchard Valley Health System [facility] Comment on above:Performed By: #### CVDTBH #### [facility] [address] [place] [address] Dr. Grace Phelps (U)CLEARNormalCLEARThe [facility] CenterComment on above: Performed By: #### CVDTBH #### [facility] [address] [place] [address] Dr. Grace Powell (U)LT. YELLOWNormalYELLOWThe [facility] CenterComment on above:Performed By: #### CVDTBH #### [facility] [address] [place] [address] Dr. Grace Schmidt micrscopic examination will be performed if indicated. NormalBlanchard Valley Health System Blanchard Valley HospitalComment on above:Performed By: #### CVDTBH #### [facility] [address] [place] [address] Dr. Grace Gilose Ql (U)NegativeNormalNEGATIVEBlanchard Valley Health System [facility] Valley HospitalComment on above:Performed By: #### CVDTBH #### [facility] [address] [address] [address] Grace AbdulHemoglobin Ql (U)SMALLAbnorminNEGKettering Health Behavioral Medical Center Comment on above:Performed By: #### CVDTBH #### [facility] [address] [address] [address] Grace AbdulKetones Ql (U)40 mg/dlAbnothe outer banks hospitalNEGKettering Health Behavioral Medical Center Comment on above:Performed By: #### CVDTBH #### [facility] [address] [place] [address] Dr. Grace BabbOCYTESSMALLAbnormalNEGATIVEBlanchard Valley Health System [facility] Valley HospitalComment on above:Performed By: #### CVDTBH #### [facility] [address] [place] [address] Dr. Grace AbdulNitrite Ql (U)NegativeNormalNEGATIVEBlanchard Valley Health System [facility] HospitalComment on above:Performed By: #### CVDTBH #### [facility] [address] [place] [address] Dr. Grace AbdulpH (U)7.0 [pH]Normal5-9[facility] Valley HospitalComment on above: Performed By: #### CVDTBH #### [facility] [address] [place] [address] Dr. Grace AbdulSPEC GRAVITY1.615Qaoavd7.005-<=1.025The [facility] CenterComment on above:Performed By: #### CVDTBH #### [facility] [address] [place] [address] Dr. Grace Cespedes PROTEINNegativeNormalNEGATIVE/ TRACEBlanchard Valley Health System [facility] Comment on above:Performed By: #### CVDTBH #### [facility] [address] [place] [address] Dr. Grace Triplett MICRO INDINDICATEDNoalThKindred HealthcareComment on above: Performed By: #### CVDTBH #### [facility] [address] [place] [address] Dr. Grace AbdulUrobilinogen Qn (U)0.2 {Ashley'U}/dLNormal0.2 - 1.0The [facility] CenterComment on above:Performed By: #### CVDTBH #### [facility] [address] [address] [address] Grace AbdulMAGNESIUMon 00-13-3673Uwglwatdi [Mass/Vol]1.8 mg/dLNormal1.8-2.4 The [facility] CenterComment on above:Performed By: #### CVDTBH #### [facility] [address] [place] [address] Dr. Grace AbdulPROF CHEM 8 (BAS METB)on 17-01-0341Lomqc gap [Moles/Vol]12.7 mmol/LNormalThe [facility] CenterComment on above:Performed By: #### BMP #### [facility] [address] [place] [address] Dr. Grace AbdulCalcium [Mass/Vol]8.3 mg/dLCritically low8.5-10.1The [facility] CenterComment on above:Performed By: #### BMP #### [facility] [address] [place] [address] Dr. Grace AbdulCO2 [Moles/Vol]24.4 mmol/MLwbwfm08.0-32.0The [facility] Comment on above:Performed By: #### BMP #### [facility] [address] [place] [address] Dr. Grace AbdulCreatinine [Mass/Vol]1.16 mg/dLCritically high0.55-1.02The [facility] CenterComment on above:Performed By: #### BMP #### [facility] [address] [place] [address] Dr. Grace RichardGFR-AF FLUXGCME59 mL/min/1.09y4Mtxhouifji low>=60The [facility] CenterComment on above:Performed By: #### BMP #### [facility] [address] [place] [address] Dr. Grace RichardGFR-NON AF BINPSADR35 mL/min/1.78l8Qzdxgfrxgs low>=60The Goodman HospitalComment on above:Performed By: #### BMP #### [facility] [address] [address] [address] Grace AbdulGlucose [Mass/Vol]116 mg/dLCritically vyzx61-109Pfx [facility] CenterComment on above:Performed By: #### BMP #### [facility] [address] [address] [address] Grace AbdulUrea nitrogen [Mass/Vol]20.0 mg/dLCritically high7.0-18.0The [facility] CenterComment on above:Performed By: #### BMP #### [facility] [address] [address] [address] Grace Bernal nitrogen/Creatinine [Mass ratio]17.2 mg/mgNormalThe [facility] CenterComment on above:Performed By: #### BMP #### [facility] [address] [address] [address] Grace Kauffmanon gap [Moles/Vol]10.0 mmol/LNormalBlanchard Valley Health System [facility] Comment on above:Performed By: #### BMP #### [facility] [address] [address] [address] Grace AbdulCalcium [Mass/Vol]8.8 mg/dLNormal8.5-10.1The [facility] Comment on above:Performed By: #### BMP #### [facility] [address] [address] [address] Grace AbdulChloride [Moles/Vol]96 mmol/LCritically urd54-680Sfl [facility] CenterComment on above:Performed By: #### BMP #### [facility] [address] [address] [address] Grace AbdulCO2 [Moles/Vol]26.1 mmol/EFahxeu22.0-32.0The [facility] Comment on above:Performed By: #### BMP #### [facility] [address] [address] [address] Grace AbdulCreatinine [Mass/Vol]1.11 mg/dLCritically high0.55-1.02The [facility]elyn HospitalComment on above:Performed By: #### BMP #### [facility] [address] [address] [address] Grace RichardGFR-AF BYRQIJBR85 mL/min/1.58b0Pvzogntbpd low>=60The [facility] CenterComment on above:Performed By: #### BMP #### [facility] [address] [address] [address] Grace RichardGFR-NON AF MVIQZMCI86 mL/min/1.50m6Pmwcvdtcfy low>=60The [facility] CenterComment on above:Performed By: #### BMP #### [facility] [address] [address] [address] Grace AbdulGlucose [Mass/Vol]94 mg/eNBldiaw61-310Kuc [facility] Comment on above:Performed By: #### BMP #### [facility] [address] [address] [address] Grace AbdulPotassium [Moles/Vol]3.1 mmol/LCritically low3.5-5.1The [facility] Healthment on above:Performed By: #### BMP #### [facility] [address] [address] [address] Grace AbdulPerformed By: #### CVDTBH #### [facility] [address] [address] [address] Grace AbdulSodium [Moles/Vol]129 mmol/LCritically ftq346-663Ouf [facility] CenterComment on above:Performed By: #### BMP #### [facility] [address] [address] [address] Grace AbdulUrea nitrogen [Mass/Vol]16.0 mg/dLNormal7.0-18.0The [facility] CenterComment on above:Performed By: #### BMP #### [facility] [address] [address] [address] Grace Bernal nitrogen/Creatinine [Mass ratio]14.4 mg/mgNormalThe [facility] CenterComment on above:Performed By: #### BMP #### [facility] [address] [address] [address] Graec Mosley gap [Moles/Vol]12.6 mmol/LNormalThe [facility] Comment on above:Performed By: #### CVDTBH #### [facility] [address] [place] [address] Dr. Grace AbdulCalcium [Mass/Vol]8.6 mg/dLNormal8.5-10.1The [facility] Comment on above:Performed By: #### CVDTBH #### [facility] [address] [place] [address] Dr. Grace AbdulChloride [Moles/Vol]95 mmol/LCritically mtx68-125Mza [facility] CenterComment on above:Performed By: #### BMP #### [facility] [address] [place] [address] Dr. Grace AbdulPerformed By: #### CVDTBH #### [facility] [address] [place] [address] Dr. Grace AbdulCO2 [Moles/Vol]22.5 mmol/ZXhkdbb69.0-32.0The [facility] Comment on above:Performed By: #### CVDTBH #### [facility] [address] [place] [address] Dr. Grace AbdulCreatinine [Mass/Vol]0.95 mg/dLNormal0.55-1.02The [facility] CenterComment on above:Performed By: #### CVDTBH #### [facility] [address] [place] [address] Dr. Grace RichardGFR-AF TANZANIAN>60Normal>=60The [facility] CenterComment on above:Performed By: #### CVDTBH #### [facility] [address] [place] [address] Dr. Grace RichardGFR-NON AF UDJQPTRE33 mL/min/1.14p4Afzrhighjl low>=60The [facility] CenterComment on above:Performed By: #### CVDTBH #### [facility] [address] [place] [address] Dr. Grace AbdulGlucose [Mass/Vol]92 mg/oFEuqhdf90-325Wrs [facility] Comment on above:Performed By: #### CVDTBH #### [facility] [address] [address] [address] Grace aKurum [Moles/Vol]127 mmol/LCritically avs057-305Ohl [facility] CenterComment on above:Performed By: #### CVDTBH #### [facility] [address] [address] [address] Grace Bernal nitrogen [Mass/Vol]18.0 mg/dLNormal7.0-18.0The [facility] CenterComment on above:Performed By: #### CVDTBH #### [facility] [address] [address] [address] Grace Bernal nitrogen/Creatinine [Mass ratio]18.9 mg/mgNoLicking Memorial HospitalComment on above:Performed By: #### CVDTBH #### [facility] [address] [place] [address] Dr. Grace Marcos MICROSCOPIC ONLYon 32-57-9119OXIBXZPSTVPJTTtwvakmrKQMT SEEN The [facility] CenterComment on above:Performed By: #### CVDTBH #### [facility] [address] [place] [address] Dr. Grace Bella identified Cx Nom (U)INDICATEDNoLicking Memorial HospitalComment on above:Performed By: #### CVDTBH #### [facility] [address] [address] [address] Grace Alexandra SEENNormalNONE SEENBlanchard Valley Health System Bl[facility] Valley HospitalComment on above:Performed By: #### CVDTBH #### [facility] [address] [address] [address] rGace Sood LM Nom (Urine sed)NONE SEENNormalNONE SEENBlanchard Valley Health System [facility] HospitalComaleda e. [facility] on above:Performed By: #### CVDTBH #### [facility] [address] [place] [address] Dr. Edwards ChangEpithelial cells LM Ql (Urine sed)FEWAbnormalNONE SEEN /RAREThe [facility] CenterComment on above:Performed By: #### CVDTBH #### [facility] [address] [place] [address] Dr. Grace SantosCOUSVIKKI SEENNormalNONE SEENThe [facility] CenterComment on above:Performed By: #### CVDTBH #### [facility] [address] [place] [address] Dr. Grace AbdulBikzcYSA4-9Knhfjfdh5-2Mpv [facility] CenterComment on above:Performed By: #### CVDTBH #### [facility] [address] [place] [address] Dr. Grace AbdulWBC5-10AbnormalNONE SEENThe [facility] CenterComment on above: Performed By: #### CVDTBH #### [facility] [address] [place] [address] Dr. Grace AbdulAMYLASEon 52-59-6523Yczhqcw [Catalytic activity/Vol]94 U/LNormal 25-115The [facility] CenterComment on above:Performed By: #### CVDTBH #### [facility] [address] [place] [address] Dr. Grace Arndt 63-07-7182Bydkbkjpnvm peptide B (Bld) [Mass/Vol]357.0 pg/mL Normal<=1,800.0The [facility] Healthment on above:Performed By: #### CVDTBH #### [facility] [address] [place] [address] Dr. Grace Oreilly JOVITA ADMITon 92-86-5422HZ [Catalytic activity/Vol]66 U/L Mhcuuj54-333Opn [facility] CenterComment on above:Performed By: #### CVDTBH #### [facility] [address] [place] [address] Dr. Grace Dawn.MB [Mass/Vol]2.19 ng/mLNormal<=3.60The [facility] on above:Performed By: #### CVDTBH #### [facility] [address] [place] [address] Dr. Grace DaoTROP9.5 pg/mLNormal4.0-51.3The [facility] Healthment on above:Result Comment: CUT-OFF POINTS HAVE BEEN ESTABLISHED BASED ON THE FOURTH UNIVERSAL DEFINITIONS OF MYOCARDIAL INFARCTION. THE UPPER REFERENCE LIMIT (URL) OF TROPONIN, DEFINED THE 99TH PERCENTILE OF cTnI DISTRIBUTION IN A REFERENCE POPULATION, HAS BEEN CONFIRMED THE DECISION THRESHOLD FOR [place] DIAGNOSIS.Performed By: #### CVDTBH #### [facility] [address] [place] [address] Dr. Grace Woods73 ng/mLNormal9-82The [facility] CenterComment on above: Performed By: #### CVDTBH #### [facility] [address] [place] [address] Dr. Grace Casey AUTO DIFFon 99-57-6098IGGY #0.0 103/ulNormal0.0-0.1The [facility] Healthment on above:Performed By: #### BMP #### [facility] [address] [place] [address] Dr. Grace AbdulBasophils/100 WBC (Bld)0.1 %Critically low0.2-2.0The [facility] CenterComment on above:Performed By: #### BMP #### [facility] [address] [place] [address] Dr. Grace Blunt #0.0 103/ulNormal0.0-0.7The [facility] CenterComaleda e. [facility] on above: Performed By: #### BMP #### [facility] [address] [place] [address] Dr. Grace Richardosinophils/100 WBC (Bld)0.1 %Critically low0.9-7.0The [facility] Healthment on above:Performed By: #### BMP #### [facility] [address] [place] [address] Dr. Grace Richardrythrocyte distribution width (RBC) [Ratio]11.9 %Jqwyyu62.0-15.0 The [facility] Healthment on above:Performed By: #### BMP #### [facility] [address] [address] [address] Grace AbdulHematocrit (Bld) [Volume fraction]36.6 %Dislzw03.0-48.0The [facility] CenterComment on above:Performed By: #### BMP #### [facility] [address] [place] [address] Dr. Grace AbdulHemoglobin (Bld) [Mass/Vol]13.2 g/mUFzjdrm51.0-16.0The [facility] CenterComment on above:Performed By: #### BMP #### [facility] [address] [place] [address] Dr. Grace AbdulIG #0.05 10e3/ulCritically high0.00-0.03The [facility] Comment on above:Performed By: #### BMP #### [facility] [address] [place] [address] Dr. Grace AbdulIG %0.7 %Critically high0.0-0.5The [facility] CenterComment on above:Performed By: #### BMP #### [facility] [address] [address] [address] Grace Hamilton #0.7 103/ulCritically low1.2-3.8The [facility] Comment on above:Performed By: #### BMP #### [facility] [address] [place] [address] Dr. Grace Hillmphocytes/100 WBC (Bld)9.8 %Critically low20.5-60.0The [facility] CenterComment on above:Performed By: #### BMP #### [facility] [address] [place] [address] Dr. Grace AbdulMANUAL DIFF REQNONormalThe [facility] CenterComment on above: Performed By: #### BMP #### [facility] [address] [place] [address] Dr. Grace Joy (RBC) [Entitic mass]31.5 ucAwtsec08.7-34.0The [facility] CenterComment on above:Performed By: #### BMP #### [facility] [address] [address] [address] Grace PerdomoHC (RBC) [Mass/Vol]36.1 g/dLCritically high29.9-35.2The [facility] CenterComment on above:Performed By: #### BMP #### [facility] [address] [place] [address] Dr. Grace PerdomoV (RBC) [Entitic vol]87.4 gTKycubd26.0-99.0The [facility] CenterComment on above:Performed By: #### BMP #### [facility] [address] [place] [address] Dr. Grace Barrios #0.9 103/ulCritically high0.3-0.8The [facility] Comment on above:Performed By: #### BMP #### [facility] [address] [place] [address] Dr. Grace Riderocytes/100 WBC (Bld)12.4 %Critically high1.7-12.0The [facility] CenterComment on above:Performed By: #### BMP #### [facility] [address] [place] [address] Dr. Grace Brar #5.8 103/ulNormal1.4-6.5The [facility] CenterComment on above:Performed By: #### BMP #### [facility] [address] [place] [address] Dr. Grace Solitarioutrophils/100 WBC (Bld)76.9 %Critically high43.0-75.0The [facility] CenterComment on above:Performed By: #### BMP #### [facility] [address] [place] [address] Dr. Grace Stokeslet mean volume (Bld) [Entitic vol]9.0 fLCritically low 9.5-13.5The [facility] CenterComment on above:Performed By: #### BMP #### [facility] [address] [place] [address] Dr. Grace AbdulPLT361 103/zaDbeule981-152Rql [facility] CenterComment on above: Performed By: #### BMP #### [facility] [address] [place] [address] Dr. Grace AbdulRBC4.19 106/ulCritically low4.20-5.40The [facility] CenterComment on above:Performed By: #### BMP #### [facility] [address] [place] [address] Dr. Grace AbdulWBC7.6 103/ulNormal4.0-11.0The [facility] CenterComment on above: Performed By: #### BMP #### [facility] [address] [place] [address] Dr. Grace AbdulCovid-19 PCR (CVDTB)on 48-46-4137HPDO-CoV-2 (COVID-19) RNA LUISITO+probe Ql (Unsp spec)Not detectedNormalNOT DETECTEDThe [facility] Comment on above:Result Comment: When [...] for this test is supported by the Welcome of Health and Human Service's declaration that [...] longer be used).Performed By: #### CVDTBH #### [facility] [address] [place] [address] Dr. Grace AbdulLIPASEon 32-36-1579Frzvco [Catalytic activity/Vol]178.0 U/LNormal 73.0-393.0The [facility] CenterComment on above:Performed By: #### CVDTBH #### [facility] [address] [place] [address] Dr. Grace ArmendarizF 14(COMP METB)on 11-41-6737Jswdbtx [Mass/Vol]4.1 g/dLNormal 3.4-5.0The [facility] CenterComment on above:Performed By: #### CVDTBH #### [facility] [address] [address] [address] Grace AbdulAlbumin/Globulin [Mass ratio]1.2 {ratio}NormalThe [facility] CenterComment on above:Performed By: #### CVDTBH #### [facility] [address] [address] [address] Grace Wilcox [Catalytic activity/Vol]63 U/EHykius03-599Fjj [facility] CenterComment on above:Performed By: #### CVDTBH #### [facility] [address] [address] [address] Grace CalderonT [Catalytic activity/Vol]29 U/FQxaraa94-24Ppz [facility] CenterComment on above:Performed By: #### CVDTBH #### [facility] [address] [address] [address] Grace Mosley gap [Moles/Vol]14.8 mmol/LNormalThe [facility] Comment on above:Performed By: #### CVDTBH #### [facility] [address] [address] [address] Grace AbdulAST [Catalytic activity/Vol]25 U/YOkcwar19-54Cor [facility] CenterComment on above:Performed By: #### CVDTBH #### [facility] [address] [address] [address] Grace AbdulBilirubin [Mass/Vol]0.6 mg/dLNormal0.2-1.0The [facility] Comment on above:Performed By: #### CVDTBH #### [facility] [address] [address] [address] Grace AbdulCalcium [Mass/Vol]9.4 mg/dLNormal8.5-10.1[facility] Comment on above:Performed By: #### CVDTBH #### [facility] [address] [address] [address] Grace AbdulChloride [Moles/Vol]83 mmol/LCritically glj37-891Efd [facility] CenterComment on above:Performed By: #### CVDTBH #### [facility] [address] [address] [address] Grace AbdulCO2 [Moles/Vol]24.4 mmol/UYebmde04.0-32.0The [facility] Comment on above:Performed By: #### CVDTBH #### [facility] [address] [address] [address] Grace AbdulCreatinine [Mass/Vol]1.15 mg/dLCritically high0.55-1.02The [facility] CenterComment on above:Performed By: #### CVDTBH #### [facility] [address] [place] [address] Dr. Edwards ChangEGFR-AF CAYHHZIN86 mL/min/1.79j8Wgpnlkehcq low>=60The [facility] CenterComment on above:Performed By: #### CVDTBH #### [facility] [address] [address] [address] Grace RichardGFR-NON AF TMHKCWAA08 mL/min/1.34k5Zssdbpgdwq low>=60The [facility] CenterComment on above:Performed By: #### CVDTBH #### [facility] [address] [address] [address] Grace AbdulGlobulin (S) [Mass/Vol]3.4 g/dLNormalThe [facility] CenterComment on above:Performed By: #### CVDTBH #### [facility] [address] [address] [address] Grace AbdulGlucose [Mass/Vol]147 mg/dLCritically yhir26-265Cwl [facility] CenterComment on above:Performed By: #### CVDTBH #### [facility] [address] [place] [address] Dr. Grace AbdulPotassium [Moles/Vol]3.2 mmol/LCritically low3.5-5.1The [facility] CenterComment on above:Performed By: #### CVDTBH #### [facility] [address] [address] [address] Grace AbdulProtein [Mass/Vol]7.5 g/dLNormal6.4-8.2The [facility] Comment on above:Performed By: #### CVDTBH #### [facility] [address] [address] [address] Grace AbdulUrea nitrogen/Creatinine [Mass ratio]21.7 mg/mgNormalThe [facility] CenterComment on above:Performed By: #### CVDTBH #### [facility] [address] [place] [address] Dr. Grace AbdulPROF CHEM 8 (BAS METB)on 45-42-9768Mxakn gap [Moles/Vol]13.6 mmol/LNormalThe [facility] CenterComment on above:Performed By: #### CVDTBH #### [facility] [address] [place] [address] Dr. Grace AbdulCalcium [Mass/Vol]8.8 mg/dLNormal8.5-10.1[facility] Comment on above:Performed By: #### CVDTBH #### [facility] [address] [place] [address] Dr. Grace AbdulChloride [Moles/Vol]88 mmol/LCritically yjq21-120SmkBlanchard Valley Health System [facility] HospitalComment on above:Performed By: #### CVDTBH #### [facility] [address] [place] [address] Dr. Grace AbdulCO2 [Moles/Vol]21.8 mmol/JHymhop97.0-32.0The [facility] Comment on above:Performed By: #### CVDTBH #### [facility] [address] [place] [address] Dr. Grace AbdulCreatinine [Mass/Vol]1.11 mg/dLCritically high0.55-1.02[facility] HospitalComment on above:Performed By: #### CVDTBH #### [facility] [address] [address] [address] Edwards ChangEGFR-AF GIMOALRR86 mL/min/1.75o8Kveutagsry low>=60The [facility] CenterComment on above:Performed By: #### CVDTBH #### [facility] [address] [address] [address] Grace RichardGFR-NON AF UWIORBAN58 mL/min/1.41u9Ejpcbubkbm low>=60The [facility] CenterComment on above:Performed By: #### CVDTBH #### [facility] [address] [place] [address] Dr. Grace AbdulGlucose [Mass/Vol]132 mg/dLCritically qovk76-777Jzs [facility] on above:Performed By: #### CVDTBH #### [facility] [address] [place] [address] Dr. Grace AbdulPotassium [Moles/Vol]3.4 mmol/LCritically low3.5-5.1The [facility] CenterComment on above:Performed By: #### CVDTBH #### [facility] [address] [place] [address] Dr. Grace AbdulSodium [Moles/Vol]120 mmol/LCritically tkp680-365Xfg [facility] on above:Result Comment: Test Repeated. Critical Value Verified Performed By: #### CVDTBH #### [facility] [address] [place] [address] Dr. Grace AbdulUrea nitrogen [Mass/Vol]25.0 mg/dLCritically high7.0-18.0The [facility] Healthment on above:Performed By: #### CVDTBH #### [facility] [address] [place] [address] Dr. Grace AbdulUrea nitrogen/Creatinine [Mass ratio]22.5 mg/mgNormalThe [facility] CenterComaleda [facility]. [facility] on above:Performed By: #### CVDTBH #### [facility] [address] [place] [address] Dr. Grace AbdulPROTIMEjustina [id number] Coag (PPP) [Relative time]0.94 {INR} NormalFostoria City Hospitalment on above:Performed By: #### CVDTBH #### [facility] [address] [address] [address] Grace KellyR GUIDELINESSEE [facility] SystemComment on above:Result Comment: DESIRED INR: 2.0 - 3.0 CONDITIONS NOT LISTED BELOW 2.5 - 3.5 FOR PROSTHETIC HEART VALVE REPLACEMENT 2.5 - 3.5 RECURRENT THROMBOSIS Performed By: #### CVDTBH #### [facility] [id number] Grace AbdulPT Coag (PPP) [Time]10.2 sNormal9.0-11.6The [facility] Comment on above:Performed By: #### CVDTBH #### [facility] [address] [address] [address] Grace AbdulXR ABD FLAT UP_PA Sergio [id number] ABD FLAT UP_PA CHX-RAY ABDOMINAL WITH CHEST. [...] Electronically authenticated by: JARET LINARES Date: 2021-11-15 13:[address] [place], [place] [address]BNPon [id number] peptide B (Bld) [Mass/Vol]546.0 pg/mLNormal<=1,800.0The [facility] on above:Performed By: #### CMP, TSH, HSTROPN, BNP ####[facility] [address] [place], [place] [address]DzDr. Grace Casey AUTO DIFFon [id number] #0.0 103/ulNormal0.0-0.1The Goodman HospitalComment on above:Performed By: #### CBC #### [facility] [address] [place] [address] Dr. Grace AbdulBasophils/100 WBC (Bld)0.3 %Normal0.2-2.0The [facility] on above:Performed By: #### CBC #### [facility] [address] [place] [address] Dr. Grace Blunt #0.0 103/ulNormal0.0-0.7The [facility] CenterComment on above: Performed By: #### CBC #### [facility] [address] [place] [address] Dr. Grace Richardosinophils/100 WBC (Bld)0.5 %Critically low0.9-7.0The [facility] CenterComment on above:Performed By: #### CBC #### [facility] [address] [place] [address] Dr. Grace Richardrythrocyte distribution width (RBC) [Ratio]12.9 %Geswns25.0-15.0 The [facility] CenterComment on above:Performed By: #### CBC #### [facility] [address] [place] [address] Dr. Grace AbdulHematocrit (Bld) [Volume fraction]36.1 %Nbabts60.0-48.0The [facility] CenterComment on above:Performed By: #### CBC #### [facility] [address] [place] [address] Dr. Grace AbdulHemoglobin (Bld) [Mass/Vol]12.3 g/kJOktnku01.0-16.0The [facility] CenterComment on above:Performed By: #### CBC #### [facility] [address] [place] [address] Dr. Grace Son #0.01 10e3/ulNormal0.00-0.03The [facility] CenterComment on above:Performed By: #### CBC #### [facility] [address] [place] [address] Dr. Grace Son %0.3 %Normal0.0-0.5The [facility] CenterComment on above: Performed By: #### CBC #### [facility] [address] [place] [address] Dr. Grace Hamilton #0.6 103/ulCritically low1.2-3.8The [facility] Comment on above:Performed By: #### CBC #### [facility] [address] [place] [address] Dr. Grace Willishocytes/100 WBC (Bld)14.8 %Critically low20.5-60.0The [facility] CenterComment on above:Performed By: #### CBC #### [facility] [address] [place] [address] Dr. Grace Gee DIFF REQNONormalThe [facility] CenterComment on above: Performed By: #### CBC #### [facility] [address] [place] [address] Dr. Grace Joy (RBC) [Entitic mass]31.5 ezTdjuyj29.7-34.0The [facility] CenterComment on above:Performed By: #### CBC #### [facility] [address] [place] [address] Dr. Grace Perdomo (RBC) [Mass/Vol]34.1 g/fDCkxobg45.9-35.2The [facility] CenterComment on above:Performed By: #### CBC #### [facility] [address] [place] [address] Dr. Grace Serrano (RBC) [Entitic vol]92.6 rDLygxsc01.0-99.0The [facility] CenterComment on above:Performed By: #### CBC #### [facility] [address] [place] [address] Dr. Grace Barrios #0.5 103/ulNormal0.3-0.8The [facility] CenterComment on above:Performed By: #### CBC #### [facility] [address] [place] [address] Dr. Grace Riderocytes/100 WBC (Bld)13.5 %Critically high1.7-12.0The [facility] CenterComment on above:Performed By: #### CBC #### [facility] [address] [place] [address] Dr. Grace Brar #2.7 103/ulNormal1.4-6.5The [facility] CenterComment on above:Performed By: #### CBC #### [facility] [address] [place] [address] Dr. rGace Solitarioutrophils/100 WBC (Bld)70.6 %Bskzhp26.0-75.0The [facility] CenterComment on above:Performed By: #### CBC #### [facility] [address] [place] [address] Dr. Grace AbdulPlatelet mean volume (Bld) [Entitic vol]9.2 fLCritically low 9.5-13.5The [facility] CenterComment on above:Performed By: #### CBC #### [facility] [address] [place] [address] Dr. Grace AbdulPLT279 103/neOpjwpp740-344Syf [facility] CenterComaleda e. [facility] on above: Performed By: #### CBC #### [facility] [address] [place] [address] Dr. Grace AbdulRBC3.90 106/ulCritically low4.20-5.40The [facility] on above:Performed By: #### CBC #### [facility] [address] [place] [address] Dr. Grace AbdulWBC3.9 103/ulCritically low4.0-11.0The [facility] CenterComment on above:Performed By: #### CBC #### [facility] [address] [place] [address] Dr. Grace AbdulPROF 14(COMP METB)on 73-73-7147Prrxlxm [Mass/Vol]3.3 g/dL Critically low3.4-5.0The [facility] CenterComment on above:Performed By: #### CMP, TSH, HSTROPN, BNP #### [facility] [address] [place] [address] Dr. Grace AbdulAlbumin/Globulin [Mass ratio]1.2 {ratio}NormalThe [facility] CenterComment on above:Performed By: #### CMP, TSH, HSTROPN, BNP #### [facility] [address] [place] [address] Dr. Grace CalderonP [Catalytic activity/Vol]60 U/QEdsvvw14-079Ook [facility] CenterComment on above:Performed By: #### CMP, TSH, HSTROPN, BNP #### [facility] [address] [place] [address] Dr. Grace Restrepo [Catalytic activity/Vol]26 U/IPtiekw99-32Kcy [facility] CenterComment on above:Performed By: #### CMP, TSH, HSTROPN, BNP #### [facility] [address] [place] [address] Dr. Grace Kauffmanon gap [Moles/Vol]14.8 mmol/LNormalThe [facility] Comment on above:Performed By: #### CMP, TSH, HSTROPN, BNP #### [facility] [address] [place] [address] Dr. Grace AbdulAST [Catalytic activity/Vol]20 U/ZQebvvj97-85Cfh [facility] Healthment on above:Performed By: #### CMP, TSH, HSTROPN, BNP #### [facility] [address] [place] [address] Dr. Grace AbdulBilirubin [Mass/Vol]0.3 mg/dLNormal0.2-1.0The [facility] Comment on above:Performed By: #### CMP, TSH, HSTROPN, BNP #### [facility] [address] [place] [address] Dr. Grace AbdulCalcium [Mass/Vol]8.2 mg/dLCritically low8.5-10.1The [facility] CenterComment on above:Performed By: #### CMP, TSH, HSTROPN, BNP #### [facility] [address] [place], [place] [address] Dr. Grace AbdulChloride [Moles/Vol]100 mmol/FEsrakz10-016Dnm [facility] Comment on above:Performed By: #### CMP, TSH, HSTROPN, BNP #### [facility] [address] [place] [address] Dr. Grace AbdulCO2 [Moles/Vol]23.8 mmol/CLdxjjw11.0-32.0The [facility] Comment on above:Performed By: #### CMP, TSH, HSTROPN, BNP #### [facility] [address] [place] [address] Dr. Grace AbdulCreatinine [Mass/Vol]1.27 mg/dLCritically high0.55-1.02[facility] HospitalComment on above:Performed By: #### CMP, TSH, HSTROPN, BNP #### [facility] [address] [place] [address] Dr. Grace RichardGFR-AF DJVWUDHI31 mL/min/1.58n9Toinmikgzb low>=60The [facility] CenterComment on above:Performed By: #### CMP, TSH, HSTROPN, BNP #### [facility] [address] [place] [address] Dr. Grace Byrd-NON AF OPMZIEUT94 mL/min/1.53r4Ggchtqgswf low>=60The [facility] CenterComment on above:Performed By: #### CMP, TSH, HSTROPN, BNP #### [facility] [address] [place] [address] Dr. Grace AbdulGlobulin (S) [Mass/Vol]2.7 g/dLNormalThe [facility] CenterComment on above:Performed By: #### CMP, TSH, HSTROPN, BNP #### [facility] [address] [place] [address] Dr. Grace AbdulGlucose [Mass/Vol]116 mg/dLCritically livj35-620Hgj [facility] CenterComment on above:Performed By: #### CMP, TSH, HSTROPN, BNP #### [facility] [address] [place] [address] Dr. Grace AbdulPotassium [Moles/Vol]3.6 mmol/LNormal3.5-5.1The [facility] Comment on above:Performed By: #### CMP, TSH, HSTROPN, BNP #### [facility] [address] [address] [address] Grace AbdulProtein [Mass/Vol]6.0 g/dLCritically low6.4-8.2The [facility] CenterComment on above:Performed By: #### CMP, TSH, HSTROPN, BNP #### [facility] [address] [address] [address] Grace AbdulSodium [Moles/Vol]135 mmol/LCritically jzn446-818Vxh [facility] CenterComment on above:Performed By: #### CMP, TSH, HSTROPN, BNP #### [facility] [address] [place] [address] Dr. Grace AbdulUrea nitrogen [Mass/Vol]25.0 mg/dLCritically high7.0-18.0The [facility] CenterComment on above:Performed By: #### CMP, TSH, HSTROPN, BNP #### [facility] [address] [place] [address] Dr. Grace Bernal nitrogen/Creatinine [Mass ratio]19.7 mg/mgNoLicking Memorial HospitalComment on above:Performed By: #### CMP, TSH, HSTROPN, BNP #### [facility] [address] [place] [address] Dr. Grace AbdulPROTIMEjustina [id number] Coag (PPP) [Relative time]0.95 {INR} NormalThe [facility] CenterComment on above:Performed By: #### BMP #### [facility] [address] [place] [address] Dr. Grace Ayala GUIDELINESSEE BELOWWayne HealthCare Main CampusComment on above:Result Comment: DESIRED INR: 2.0 - 3.0 CONDITIONS NOT LISTED BELOW 2.5 - 3.5 FOR PROSTHETIC HEART VALVE REPLACEMENT 2.5 - 3.5 RECURRENT THROMBOSIS Performed By: #### BMP #### [facility] [address] [place], [place] [address] Dr. Grace Robles Coag (PPP) [Time]10.3 sNormal9.0-11.6The [facility] Comment on above:Performed By: #### BMP #### [facility] [address] [place], [place] [address] Dr. Grace Villa [id number] Coag (Bld) [Time]21.3 sCritically low 22.3-36.2The [facility] CenterComment on above:Performed By: #### BMP #### [facility] [address] [address] [address] Grace Bland HIGH SENSITIVITYon 19-24-2274GCXJBL7.5 pg/mLNormal 4.0-51.3The [facility] CenterComment on above:Result Comment: CUT-OFF POINTS HAVE BEEN ESTABLISHED BASED ON THE FOURTH UNIVERSAL DEFINITIONS OF MYOCARDIAL INFARCTION. THE UPPER REFERENCE LIMIT (URL) OF TROPONIN, DEFINED THE 99TH PERCENTILE OF cTnI DISTRIBUTION IN A REFERENCE POPULATION, HAS BEEN CONFIRMED THE DECISION THRESHOLD FOR [place] DIAGNOSIS.Performed By: #### CMP, TSH, HSTROPN, BNP #### [facility] [id number] Grace Vivas 09-18-9808RCF2.140 uIU/mLNormal0.358-3.740The [facility] CenterComment on above:Performed By: #### CMP, TSH, HSTROPN, BNP ####[facility] [address] [place], [place] [address]AsDr. Grace AbdulXR CHEST 1 Von [id number] CHEST 1 VEXAMINATION: XR CHEST 1 V [...] Electronically authenticated by: KRANTHI CONNORS Date: 2021-11-11 13:34NoLicking Memorial HospitalCARDIAC JOVITA ADMITon [id number] [Catalytic activity/Vol]89 U/WTmjhem75-248Zxy [facility] CenterComment on above:Performed By: #### CVDTBH #### [facility] [address] [address] [address] Grace Dawn.MB [Mass/Vol]1.92 ng/mLNormal<=3.60[facility] Comment on above:Performed By: #### CVDTBH #### [facility] [address] [address] [address] Grace DaoTROP5.7 pg/mLNormal4.0-51.3The [facility] CenterComment on above:Result Comment: CUT-OFF POINTS HAVE BEEN ESTABLISHED BASED ON THE FOURTH UNIVERSAL DEFINITIONS OF MYOCARDIAL INFARCTION. THE UPPER REFERENCE LIMIT (URL) OF TROPONIN, DEFINED THE 99TH PERCENTILE OF cTnI DISTRIBUTION IN A REFERENCE POPULATION, HAS BEEN CONFIRMED THE DECISION THRESHOLD FOR [place] DIAGNOSIS.Performed By: #### CVDTBH #### [facility] [address] [address] [address] Grace Woods86 ng/mLCritically high9-82The [facility] CenterComment on above:Performed By: #### CVDTBH #### [facility] [address] [address] [address] Grace Casey AUTO DIFFon [id number] #0.0 103/ulNormal0.0-0.1The [facility] CenterComment on above:Performed By: #### CVDTBH #### [facility] [address] [address] [address] Grace AbdulBasophils/100 WBC (Bld)0.5 %Normal0.2-2.0[facility] Comment on above:Performed By: #### CVDTBH #### [facility] [address] [address] [address] Grace Blunt #0.0 103/ulNormal0.0-0.7The [facility] CenterComment on above: Performed By: #### CVDTBH #### [facility] [address] [place] [address] Dr. Grace Richardosinophils/100 WBC (Bld)0.7 %Critically low0.9-7.0The [facility] CenterComment on above:Performed By: #### CVDTBH #### [facility] [address] [place] [address] Dr. Grace Richardrythrocyte distribution width (RBC) [Ratio]13.2 %Cbxfvi62.0-15.0 The [facility] CenterComment on above:Performed By: #### CVDTBH #### [facility] [address] [place] [address] Dr. Graec AbdulHematocrit (Bld) [Volume fraction]34.8 %Critically low36.0-48.0 The [facility] CenterComment on above:Performed By: #### CVDTBH #### [facility] [address] [place] [address] Dr. Grace AbdulHemoglobin (Bld) [Mass/Vol]11.9 g/dLCritically low12.0-16.0The [facility] CenterComment on above:Performed By: #### CVDTBH #### [facility] [address] [place] [address] Dr. Grace Son #0.01 10e3/ulNormal0.00-0.03The [facility] CenterComment on above:Performed By: #### CVDTBH #### [facility] [address] [place] [address] Dr. Grace Son %0.2 %Normal0.0-0.5The [facility] CenterComment on above: Performed By: #### CVDTBH #### [facility] [address] [place] [address] Dr. Grace WillisH #0.6 103/ulCritically low1.2-3.8The [facility] Comment on above:Performed By: #### CVDTBH #### [facility] [address] [place] [address] Dr. Grace Hillmphocytes/100 WBC (Bld)14.2 %Critically low20.5-60.0The [facility] CenterComment on above:Performed By: #### CVDTBH #### [facility] [address] [place] [address] Dr. Grace FloresUAL DIFF REQNONormalThe [facility] CenterComment on above: Performed By: #### CVDTBH #### [facility] [address] [place] [address] Dr. Grace Perdomo (RBC) [Entitic mass]31.5 exTwhurh29.7-34.0The [facility] CenterComment on above:Performed By: #### CVDTBH #### [facility] [address] [place] [address] Dr. Grace Perdomo (RBC) [Mass/Vol]34.2 g/lOOdddoq00.9-35.2The [facility] CenterComment on above:Performed By: #### CVDTBH #### [facility] [address] [place] [address] Dr. Grace Perdomo (RBC) [Entitic vol]92.1 vHWupnvr81.0-99.0The [facility] CenterComment on above:Performed By: #### CVDTBH #### [facility] [address] [place] [address] Dr. Grace Barrios #0.7 103/ulNormal0.3-0.8The [facility] CenterComment on above:Performed By: #### CVDTBH #### [facility] [address] [place] [address] Dr. Grace Riderocytes/100 WBC (Bld)15.6 %Critically high1.7-12.0The [facility] CenterComment on above:Performed By: #### CVDTBH #### [facility] [address] [place] [address] Dr. Grace Brar #3.0 103/ulNormal1.4-6.5The [facility] CenterComment on above:Performed By: #### CVDTBH #### [facility] [address] [place] [address] Dr. Grace Solitarioutrophils/100 WBC (Bld)68.8 %Jfnibo17.0-75.0The [facility] CenterComment on above:Performed By: #### CVDTBH #### [facility] [address] [place] [address] Dr. Grace AbdulPlatelet mean volume (Bld) [Entitic vol]9.5 fLNormal9.5-13.5The [facility] CenterComment on above:Performed By: #### CVDTBH #### [facility] [address] [place] [address] Dr. Grace AbdulPLT303 103/cdWxgfgv200-378Rfg [facility] CenterComment on above: Performed By: #### CVDTBH #### [facility] [address] [place] [address] Dr. Grace AbdulRBC3.78 106/ulCritically low4.20-5.40The [facility] CenterComment on above:Performed By: #### CVDTBH #### [facility] [address] [place] [address] Dr. Grace AbdulWBC4.4 103/ulNormal4.0-11.0The [facility] CenterComment on above: Performed By: #### CVDTBH #### [facility] [address] [place] [address] Dr. Grace AbdulCT HEAD WO CONon [id number] HEAD WO CONEXAMINATION: CT HEAD WO CON [...] Electronically authenticated by: KRANTHI CONNORS Date: 2021-09-13 13:24NoLicking Memorial HospitalCovid-19 PCR (CVDTBH)on [id number]-CoV-2 (COVID-19) RNA LUISITO+probe Ql (Unsp spec)Not detectedNormalNOT DETECTEDBlanchard Valley Health System [facility] Comment on above:Result Comment: When diagnostic [...] for this test is supported by the [employer] and Human Service's declaration that [...] longer be used).Performed By: #### CVDTBH #### [facility] [address] [place] [address] Dr. Edwards ChangEJimenez URINE PROFILEon [id number] Ql (U)NegativeNormal NEGATIVEBlanchard Valley Health System [facility] Valley HospitalComment on above:Performed By: #### BMP #### [facility] [address] [address] [address] Grace Phelps (U)CLEARNormalCLEARBlanchard Valley Health System [facility] Valley HospitalComment on above: Performed By: #### BMP #### [facility] [address] [place] [address] Dr. rGace Powell (U)LT. YELLOWNormalYELLOWBlanchard Valley Health System [facility] Valley HospitalComment on above:Performed By: #### BMP #### [facility] [address] [place] [address] Dr. Grace Schmidt micrscopic examination will be performed if indicated. NormalBlanchard Valley Health System Blanchard Valley HospitalComment on above:Performed By: #### BMP #### [facility] [address] [address] [address] Grace AbdulGlucose Ql (U)NegativeNormalNEGATIVEBlanchard Valley Health System [facility] HospitalComment on above:Performed By: #### BMP #### [facility] [address] [place] [address] Dr. Grace AbdulHemoglobin Ql (U)NegativeNormalNEGKettering Health Behavioral Medical Center Comment on above:Performed By: #### BMP #### [facility] [address] [place] [address] Dr. Grace AbdulKetones Ql (U)TRACEAbnormalNEGATIVEBlanchard Valley Health System [facility] Valley HospitalComment on above:Performed By: #### BMP #### [facility] [address] [place] [address] Dr. Grace AbdulLEUKOCYTESTRACEAbnormalNEGATIVEBlanchard Valley Health System [facility] HospitalComment on above:Performed By: #### BMP #### [facility] [address] [place] [address] Dr. Grace AbdulNitrite Ql (U)NegativeNormalNEGATIVEBlanchard Valley Health System [facility] HospitalComment on above:Performed By: #### BMP #### [facility] [address] [place] [address] Dr. Grace AbdulpH (U)8.0 [pH]Normal5-9[facility] Blanchard Valley HospitalComment on above: Performed By: #### BMP #### [facility] [address] [place] [address] Dr. Grace AbdulSPEC GRAVITY1.109Dvfbwf8.005-<=1.025[facility] [facility] Valley HospitalComment on above:Performed By: #### BMP #### [facility] [address] [place] [address] Dr. Grace AbdulUA PROTEINNegativeNormalNEGATIVE/ TRACEBlanchard Valley Health System [facility] Comment on above:Performed By: #### BMP #### [facility] [address] [place] [address] Dr. Grace Triplett MICRO INDINDICATEDNormalThe [facility] CenterComment on above: Performed By: #### BMP #### [facility] [address] [place] [address] Dr. Grace AbdulUrobilinogen Qn (U)0.2 {Ashley'U}/dLNormal0.2 - 1.0The [facility] CenterComment on above:Performed By: #### BMP #### [facility] [address] [place] [address] Dr. Grace AbdulPROF 14(COMP METB)on 13-80-7932Fuqcwxi [Mass/Vol]3.8 g/dLNormal 3.4-5.0The [facility] CenterComment on above:Performed By: #### CVDTBH #### [facility] [address] [place] [address] Dr. Grace AbdulAlbumin/Globulin [Mass ratio]1.4 {ratio}NormalThe [facility] CenterComment on above:Performed By: #### CVDTBH #### [facility] [address] [place] [address] Dr. Grace Wilcox [Catalytic activity/Vol]53 U/PYzeeke37-424Piz UC Healthment on above:Performed By: #### CVDTBH #### [facility] [address] [place] [address] Dr. Grace Restrepo [Catalytic activity/Vol]20 U/INhzisv26-05Rgh UC Healthment on above:Performed By: #### CVDTBH #### [facility] [address] [place] [address] Dr. Grace Mosley gap [Moles/Vol]12.0 mmol/LNormalThe [facility] on above:Performed By: #### CVDTBH #### [facility] [address] [place] [address] Dr. Grace Mortensen [Catalytic activity/Vol]18 U/PSigbig27-68Yio Goodman HospitalComment on above:Performed By: #### CVDTBH #### [facility] [address] [address] [address] Grace AbdulBilirubin [Mass/Vol]0.4 mg/dLNormal0.2-1.0[facility] Comment on above:Performed By: #### CVDTBH #### [facility] [address] [place] [address] Dr. Grace AbdulCalcium [Mass/Vol]9.5 mg/dLNormal8.5-10.1The [facility] Comment on above:Performed By: #### CVDTBH #### [facility] [address] [place] [address] Dr. Grace AbdulChloride [Moles/Vol]99 mmol/SHrswnz51-213XjgBlanchard Valley Health System [facility] Comment on above:Performed By: #### CVDTBH #### [facility] [address] [place] [address] Dr. Grace AbdulCO2 [Moles/Vol]28.1 mmol/VPvlsyv64.0-32.0The [facility] Comment on above:Performed By: #### CVDTBH #### [facility] [address] [place] [address] Dr. Grace AbdulCreatinine [Mass/Vol]1.25 mg/dLCritically high0.55-1.02The [facility] CenterComment on above:Performed By: #### CVDTBH #### [facility] [address] [place] [address] Dr. Grace RichardGFR-AF IUNXKPZB52 mL/min/1.44m2Lesosbkgvk low>=60The [facility] CenterComment on above:Performed By: #### CVDTBH #### [facility] [address] [place] [address] Dr. Grace RichardGFR-NON AF ORTSRQSB70 mL/min/1.43t5Eqjvlaczur low>=60The [facility] CenterComment on above:Performed By: #### CVDTBH #### [facility] [address] [place] [address] Dr. Grace AbdulGlobulin (S) [Mass/Vol]2.7 g/dLNoLicking Memorial HospitalComment on above:Performed By: #### CVDTBH #### [facility] [address] [place] [address] Dr. Grace AbdulGlucose [Mass/Vol]131 mg/dLCritically endx28-670Nig [facility] CenterComment on above:Performed By: #### CVDTBH #### [facility] [address] [place] [address] Dr. Grace AbdulPotassium [Moles/Vol]4.1 mmol/LNormal3.5-5.1The [facility] Comment on above:Performed By: #### CVDTBH #### [facility] [address] [place] [address] Dr. Grace AbdulProtein [Mass/Vol]6.5 g/dLNormal6.4-8.2The [facility] Comment on above:Performed By: #### CVDTBH #### [facility] [address] [place] [address] Dr. Grace AbdulSodium [Moles/Vol]135 mmol/LCritically muk866-340Wmw [facility] CenterComment on above:Performed By: #### CVDTBH #### [facility] [address] [place] [address] Dr. Grace AbdulUrea nitrogen [Mass/Vol]33.0 mg/dLCritically high7.0-18.0The [facility] CenterComment on above:Performed By: #### CVDTBH #### [facility] [address] [place] [address] Dr. Grace AbdulUrea nitrogen/Creatinine [Mass ratio]26.4 mg/mgNoLicking Memorial HospitalComment on above:Performed By: #### CVDTBH #### [facility] [address] [place] [address] Dr. Grace AbdulURINE MICROSCOPIC ONLYon 32-49-1833IXAWHDCQTFHI SEENNormalNONE SEENBlanchard Valley Health System [facility] HospitalComment on above:Performed By: #### CBC #### [facility] [address] [place] [address] Dr. Grace Bella identified Cx Nom (U)NOT INDICATEDNoalThKindred HealthcareComment on above:Performed By: #### CBC #### [facility] [address] [place] [address] Dr. Grace Alexandra SEENNormalNONE SEENBlanchard Valley Health System [facility] HospitalComaleda e. [facility] on above:Performed By: #### CBC #### [facility] [address] [place] [address] Dr. Grace Sood LM Nom (Urine sed)NONE SEENNormalNONE SEENThe [facility] CenterComment on above:Performed By: #### CBC #### [facility] [address] [place] [address] Dr. Grace Goddardthelial cells LM Ql (Urine sed)FEWAbnormalNONE SEEN /RAREThe [facility] CenterComment on above:Performed By: #### CBC #### [facility] [address] [place] [address] Dr. Grace Snyder SEENNormalNONE SEENBlanchard Valley Health System [facility] HospitalComaleda e. [facility] on above:Performed By: #### CBC #### [facility] [address] [place] [address] Dr. Grace MontoyaQlxpxZFB2-9Oowqvm2-6Yae [facility] CenterComaleda [facility] on above:Performed By: #### CBC #### [facility] [address] [place] [address] Dr. Grace AbdulWBC0-2AbnormalNONE SEENBlanchard Valley Health System [facility] HospitalComment on above: Performed By: #### CBC #### [facility] [address] [place] [address] Dr. Grace AbdulXR CHEST 1 Von 85-31-3398DD CHEST 1 VEXAMINATION: XR CHEST 1 V [...] Electronically authenticated by: KRANTHI CONNORS Date: 2021-09-13 13:19[facility] W/OBLS/FLEX/EXT 6 OR >on 46-72-2231ZGKY SP W/OBLS/FLEX/EXT 6 OR >STUDY: CERV SP W/OBLS/FLEX/EXT 6 OR >; 12/12/2020 9:40 am INDICATION: NECK PAIN. COMPARISON: None. ACCESSION NUMBER(S): [id number] ORDERING CLINICIAN: Aiden Younger TECHNIQUE: AP, lateral, [...] findings. Dense left carotid artery calcifications.NormalSt. St. [facility] Vital Signs Date TimeVital SignValuePerforming EvwllrcrjKqcmrcye26-58-9225 11:32-0400Body oaclzu795.3 cmArmando Thayer DO Work Phone: [employer]SD Hjxsctlmgq78-39-2001 11:32-0400Body mass index (BMI) [Ratio]34.28 kg/w9Kiihltmmario Thayer DO Work Phone: noSD Ighcvsgcqx31-43-1735 11:32-0400Body bczymh63.39 kgArmando Thayer DO Work Phone: noCenterPointe HospitalPnnligzdss89-53-8219 11:32-0400Diastolic blood ononuyyb47 mm[Hg]Armando Pattersoner DO Work Phone: [facility] HospitalUqottnakch04-52-5261 11:32-0400Systolic blood axxuxjjr659 mm[Hg]Armando Thayer DO Work Phone: [facility] HospitalZzqszskivq46-86-2594 12:51-0400Diastolic blood qxletszg81 mm[Hg]Carolyn Vanegas MD Work Phone: [facility]08-01-2023 12:51-0400Heart rate67 /min Carolyn Vanegas MD Work Phone: [facility]08-01-2023 12:51-0400Systolic blood mm[Hg]Carolyn Vanegas MD Work Phone: [facility]03-24-2023 14:24-0400Diastolic blood eulakzta84 mm[Hg]Marty Dozier DO Work Phone: [facility]03-24-2023 14:24-0400Heart rate72 /min Marty Dozier DO Work Phone: [facility]03-24-2023 14:24-0400Systolic blood ahttvpvx690 mm[Hg]Marty Dozier DO Work Phone: [facility]03-24-2023 14:22-0400Body zhclle989.4 cmPhisofia Dozier DO Work Phone: [facility]03-24-2023 14:22-0400Body .39 kgPhisofia Dozier DO Work Phone: [facility]03-24-2023 14:22-8730TsI1% (BldA) [Mass fraction]99 %Marty Dozier DO Work Phone: [facility] Encounters Encounter DateEncounter TypeCare ProviderFacilityStart: 15-19-8782uljlhvaigm Jacinta TannaFacility:EU BellevueStart: 11-14-2024 End: 11-72-7150eahlzsyaiuHjrwon TannaFacility:EU BellevueStart: 11-14-2024 End: 75-84-8755Tyexszj encounter procedureLauren Mercedes [facility] start: 10-10-2024 End: 60-13-4860vodrxsaekvHlzff M. BillieKimacility:FTMCStart: 10-10-2024 End: 90-31-4650qoktrhmblmAvned MLisette LueFacility:EU BellevueStart: 10-10-2024 End: 13-56-6828Bqghepp encounter Kira Calix [facility] start: 10-01-2024 End: 37-58-8646qwftwmrgvlMeodzvs Vytautas Giedraitis MDFacility:PM Evelyn Start: 80-44-5160hgytiorrxnZwqbmu TannaFacility:EU [place]uskyStart: 09-22-2024 End: 14-25-9768Buxiyaf encounter procedureGalina Bach MD-Lab [facility] Work Phone: Start: 09-22-2024 End: 68-94-8043bogomopcfzLogoucs M [facility] Work Phone: Start: 06-18-2024 End: 51-89-0634fumuxmvlxdUhyolqd Vytautas Giedraitis MDFacility:PM Goodman Start: 05-28-2024 End: 95-44-8624cactkdkuxzFoqwkbe Vytautas Giedraitis MDFacility:PM [facility] Start: 04-30-2024 End: 18-29-5459omevpemjguGsdiqcs Vytautas Giedraitis MDFacility:PM [facility] Start: 02-06-2024 End: 16-84-9121vaagucdxalWovltnd Vytautas Giedraitis MDFacility:PM [facility] Start: 01-16-2024 End: 01-04-7715xtwfckzdbjLkqhvcy Vytautas Giedraitis MDFacility:PM [facility] Start: 12-06-2023 End: 88-79-3279Uglcibp encounter procedureArmando Thayer DO Work Phone: [facility] OBComment on above:Encounter for gynecological examination without abnormal finding; Encounter for Papanicolaou smear of vagina; Breast cancer screening by mammogramStart: 12-06-2023 End: 52-39-2802Numwtbp encounter statusArmando Thayer DO Work Phone: [facility] HealthcareStart: 12-06-2023 End: 29-54-2114qogkxuwcacCTROLWQ D BRUNERNot AvailableStart: 08-08-2023 End: 82-94-7155fdkucydkolRWCOLETTE BRIGHT AvailableStart: 09-21-2022 End: 87-87-4221ibivgfchydNYHVHLX M HOYFacility:[facility] Hospitaltart: 09-21-2022 End: 63-29-3053Djvpaon encounter procedureCarolyn Vanegas MD Work Phone: NeurosurgeryComment on above:Obesity, Class I, BMI 30- 34.9 (Primary Dx); Spinal stenosis, lumbar region with neurogenic claudicationStart: 08-19-2022 Chart abstractingNone (Historical)NeurologyStart: 63-15-8597nglgkqfzyw NARENDRANATH LAKSHMIPATHY .Facility:U4Tgjql: 07-16-2022 End: 49-83-8214yitjitsffxIR GALINA PALMER .Facility:F4Djpti: 06-22-2022 End: 88-77-0751upykpjyzvfYDYZWJBOOVRN LAKSHMIPATHY .Facility:N9Putzu: 06-15-2022 End: 31-74-4367hslbsttyfqJXINHHNOYDGJ LAKSHMIPATHY .Facility:L4Eiohi: 06-10-2022 ambulatoryDR GALINA PALMER .Facility:Q5Uogeh: 06-01-2022 End: 45-29-9333ilzwsjysotRQPKRKGXOKQF LAKSHMIPATHY .Facility:A0Oeazx: 05-14-2022 End: 85-83-5044sxplfuefwnPHKYBCF G MENDISFacility:[facility] Start: 05-14-2022 End: 84-35-0814Grslcwq encounter procedurePhisofia Dozier DO Work Phone: Spput MedicineComment on above: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); Back pain, lumbosacral; Chronic sacroiliac joint pain; Lumbar spondylosis; Scoliosis of lumbar spine, unspecified scoliosis typeStart: 05-13-2022 End: 04-69-8717uhwrbacbovQLOAXNDTHYCL LAKSHMIPATHY .Facility:O8Feuon: 04-13-2022 End: 44-60-2894tkgsmjzkfkZC NIKO S BECKWITH .Facility:Q8Ealnj: 04-06-2022 End: 88-90-6416gcmelfikhaRX NIKO S BECKWITH .Facility:O9Qcucn: 04-05-2022 End: 88-82-5299jbvawwldhlRY GALINA HOY .Facility:K6Ddlvj: 04-04-2022 End: 31-63-8996abvxhnkozbBS MATTHEW MEYER .Facility:G9Lonyi: 03-11-2022 End: 39-46-2822zjvkuxyehxDS GALINA HOY .Facility:Q3Tbqbc: 02-09-2022 End: 66-05-4574sytkdionunLQ GALINA HOY .Facility:Y5Mieqh: 01-28-2022 End: 07-86-9459vvvhccljucEOSL SEQUEIRA .Facility:P0Lhmkp: 01-12-2022 End: 48-85-2294xmixpquvbkLW NIKO S BECKWITH .Facility:B2Qmajh: 12-31-2021 End: 96-47-4604zowdmkkzxbPCWJ SEQUEIRA .Facility:S9Wpilw: 79-70-3902dtdkjpqoxoKY GALINA HOY .Facility:Q4Qvdsw: 12-11-2021 End: 44-18-1718yurqijjucsFR GALINA HOY .Facility:B5Wvkap: 11-25-2021 End: 74-33-8562jfbpmsopsbLL GALINA HOY .Facility:P0Ihxzh: 11-24-2021 End: 74-21-9733khaptcqanvBE GALINA HOY .Facility:D1Uypjd: 11-23-2021 End: 69-66-9104qnxndqhosyMT GALINA HOY .Facility:Z2Ditdu: 11-15-2021 End: 91-06-8684Eynunendxg and management of inpatientSBREANNA BERNALWADFacility:H1 Start: 11-11-2021 End: 36-57-1226bvyzktltcgSFHGWB RODRIGUEZ .Facility:N1Hhaif: 09-30-2021 End: 09-21-0288zzydiydjsaQH NIKO BECKWITH .Facility:M6Mzzcx: 09-13-2021 End: 20-62-0018oupujmwnnlURALON RODRIGUEZ .Facility:U6Phzbd: 09-12-2017 End: 70-15-3918Obkdlfx encounterDEFAULT PHYSICIANFacility:[facility] Procedures DateProcedureProcedure DetailPerforming ClinicianAppendix absent (finding)Sharon Lue ArthroscopyKathy Lue Capsulotomy of posterior lens capsuleLauren Mercedes CholecystectomyLauren Mercedes HysterectomyKathy Lue Laboratory test result abnormalLaboratory test result abnormalKathy Lue Left breast structure (body structure)Sharon Lue Comment on above:benign tumorRight breast structure (body structure)Jacinta Mercedes TonsillectomyKathy Lue Total knee replacementLasera Mercedes Urinary bladder structure (body structure)Sharon Lue Plan of Treatment DateCare ActivityDetailAuthorStart: 12-10-2025 End: 56-68-3028Kehtoje encounter iazuozrrb79/20/2026 11:30 AM EDT Office Visit [facility] [address] [place] [id number] Armando Thayer, DO [address] [place] [address] [facility] SWS OBStart: 54-85-0808Lubdnljh identified in Urine by CultureUrine CultureSelect Medical [facility], Avontart: 27-34-5737Vdtsp cultureSelect Medical [facility], Avontart: 01-30-8229Tuouqmani vaccination Influenza Vaccine (#1)[facility] HealthcareStart: 33-82-3608Yuvlaktad vaccination INFLUENZA (#1)[facility]: 85-89-3150RSQOF-19 VACCINE (6 - Moderna series)COVID-19 VACCINE (6 - Moderna series)[facility]: 02-21-2022 ADVANCE DIRECTIVE DISCUSSIONADVANCE DIRECTIVE DISCUSSIONRegency Hospital Toledotart: 36-59-1727XEPIHCNADF ASSESSMENTDEPRESSION ASSESSMENTRegency Hospital Toledotart: 88-01-2076Xglvpljisdtv Vaccine: 65+ Years (2 of 2 - PPSV23 or PCV20)Pneumococcal Vaccine: 65+ Years (2 of 2 - PPSV23 or PCV20)[facility] HospitalStart: 11-12-2017 PNEUMOCOCCAL: 65+ (2 - PPSV23 if available, else PCV20)PNEUMOCOCCAL: 65+ (2 - PPSV23 if available, else PCV20)[facility]: 10-10-7204IXXKNWEUSSDY: 65+ (2 - PPSV23 or PCV20)PNEUMOCOCCAL: 65+ (2 - PPSV23 or PCV20)[facility] Start: 72-65-1853GSFXAWOB VACCINE (2 of 3)SHINGRIX VACCINE (2 of 3)[facility]: 19-57-0314GCDK DENSITYBONE DENSITYRegency Hospital Toledotart: 04-30-1984 DIABETES SCREENDIABETES SCREENRegency Hospital Toledotart: 13-83-1213Isric microalbumin profileDTAP,TDAP,TD (1 - Tdap)[facility] GeneralIGP,rfxAptima HPV all,16/18,45IGP,rfxAptima HPV all,16/18,45 Pathology and Cytology Routine Encounter for Papanicolaou smear of vagina Ordered: 12/06/2023[facility] Work Phone: comment on above:Ordered: 12/06/2023 Immunizations Immunization DateImmunizationNotesCare VizwyxpmDjnkawzo27-94-6932gaeacq vaccine recombinantLasera Cooleya [facility]06-02-2025tetanus toxoid, reduced diphtheria toxoid, and acellular pertussis vaccine, adsorbedLauren Mercedes [facility]10-14-2024influenza virus vaccine, unspecified formulationLauren Mercedes [facility]09-04-2023influenza virus vaccine, unspecified formulationLauren Mercedes [facility]08-12-2023SARS-CoV-2 (COVID-19) mRNAMUL.ORD!y44884Aemzcv Tanna [facility] AdministrationComaleda [facility] on above:Result Comment: 2024-11-14: VTM4880-08-1452Huzztje Bivalent Booster VaccinationWilliamyrna Thayer DO Work Phone: [facility] HospitalComaleda [facility] on above:Result Comment: 2024-11-14: LNA0333-61-6679Crqhwuzya, injectable, Madin Carmina Canine Kidney, preservative free, quadrivalentPhillip Mendis DO Work Phone: [facility] GeneralCfrzvb65-50-7162dzjpyubev virus vaccine, unspecified formulationWilliam Flaca DO Work Phone: [facility]04-14-2022SARS-CoV-2 (COVID-19) mRNA-2163 vaccineLauren Mercedes [facility] on above:Result Comment: 2024-11-14: DJJ0708-16-9858BPTZ-RiC-1 (COVID-19) mRNA-1273 vaccineLauren Mercedes [facility]10-08-2021influenza virus vaccine, unspecified formulationPhillip Mendis DO Work Phone: [facility] GeneralMcqhss52-07-6912kunfxklin, unspecified formulationLasera Cooleya [facility]02-15-2021SARS-CoV-2 (COVID-19) mRNA-1273 vaccineLasera Cooleya [facility]01-18-2021SARS-CoV-2 (COVID-19) mRNA-127 vaccineLasera Cooleya [facility]10-08-2020influenza virus vaccine, unspecified formulationLasera Long [facility]10-08-2020Seasonal trivalent influenza vaccine, adjuvanted, preservative freePhillip Merit Health Wesleyis DO Work Phone: [facility] GeneralNmrnri30-10-2631zadikq vaccine, livePhillip [facility] DO Work Phone: [facility] GeneralHpobwy56-07-7847ihppstifmoru conjugate vaccine, 13 valentPhillip [facility] DO Work Phone: [facility] Payers DatePayer CategoryPayerPolicy [id number] Health [id number] 2005Medicare [id number] 2005Unknown1960Medicare [id number]-[id number] [id number] 2.16.840.1.127689.3.57[id number] 2.16.840.1.338793.3.57[id number] 2.16.840.1.909965.3.579.[id number] 2.16.840.1.608783.3.579.[id number] 2.16.840.1.987685.3.57[id number] 2.16.840.1.232646.3.579.2.54676-29-1216Aheajxx8122590 2.16.840.1.135323.3.579.2.10879-24-8771Nlcbpcw0785988 2.16.840.1.691653.3.579.2.72201-08-3082Fdgnsca0347760 2.16.840.1.825831.3.57[id number] 2.16.840.1.035226.3.579.2.35693-27-5313Lvcfqtp0629399 2.16.840.1.424020.3.57[id number] 2.16.840.1.186818.3.579.2.79661-34-1390Fzlcckp0187139 2.16.840.1.438263.3.579.2.65945-85-6463Bsprxjd1976186 2.16.840.1.924977.3.579.2.18735-90-4828Zcmquah6809948 2.16.840.1.690442.3.579.2.41164-20-1074Pbwxggq6205782 2.16.840.1.034482.3.579.2.80449-00-5061Rbyobwx8933184 2.16.840.1.280649.3.579.2.48863-66-0694Unfchvb0821822 2.16.840.1.347778.3.579.2.28505-95-8100Aicsazo0016010 2.16840.1.885613.3.579.2.32968-21-9102Eoqvseg5383808 2.16840.1.778760.3.579.2.47245-67-9861Xiucnkt0560860 2.16840.1.554479.3.579.2.09141-28-9300Ebrvbkf8564108 2.16840.1.803393.3.579.2.20489-65-8513Ttmoubw6800926 2.16.840.1.857239.3.579.2.19681-38-2087Uyugiie9683644 2.16840.1.601111.3.579.2.55547-47-7182Mnoshhz2466566 2.840.1.386270.3.579.2.51381-31-1898Pdalubl4928298 2.16.840.1.290117.3.579.2.672863-13-7002Tbwrssu6666086 2.16.840.1.480062.3.579.2.932505-56-3557Erxvaah1698604 2.16.840.1.964609.3.579.2.978039-33-4138Hietvyi181524129 2.16.840.1.618351.3.579.2.85899-16-1654Rvaazki806764598 2.16.840.1.149441.3.579.2.70067-01-2451Edozyza835811126 2.16.840.1.367741.3.579.2.87223-50-5103Llvpfmk318502187 2.16.840.1.776869.3.579.2.90178-06-9045Poewtnx984013567 2.16.840.1.068663.3.579.2.21172-59-0884Kumaqbu611109870 2.16.840.1.109629.3.579.2.39702-95-5622Gxaoueh91242477 2.16.840.1.842024.3.579.2.21892-69-9801Sdtdpew55500182 2.16.840.1.588760.3.579.2.69297-83-3977Mzavuha85207025 2.16.840.1.842852.3.579.2.38367-38-1154Nqzabec60581947 2.16.840.1.855241.3.579.2.71167-94-1204Ccwdntc10895361 2..840.1.725045.3.579.2.00419-90-0508Duyokod29618565 2.16.840.1.611128.3.579.2.771Tatwesc91683524 2.840.1.838753.3.579.2.531 Social History DateTypeDetailFacilityStart: 05-14-2022 End: 86-46-7547Rffbjfq smoking status NHISNever smoked tobaccoCleveland Clinic [facility]ron General Start: 05-14-2022 End: 40-98-9528Fuxipua use and exposureSmokeless tobacco non-userRegency Hospital Toledotart: 05-14-2022 End: 56-47-8536Pvkffbg intakeLifetime non-drinker (finding)[facility] Start: 01-08-4354Ifm Assigned At BirthNot on fileRegency Hospital Toledotart: 09-21-2022 End: 70-32-8688Kdyvvzr of Social functionRegency Hospital Toledotart: 09-21-2022 End: 63-06-7031Gvtfnwz use panelCleveland Clinic [facility]ron GeneralAdult Depression Screening Drskiqyxpo0Puzsvmgzk ClinicHow often to you have a drink containing alcohol? NeverNOMS HealthcareTobacco smoking status NHISUnknown if ever smokedOhiohealth Riverside Methodist Hospital Work Phone: Start: 44-16-0463FiaXuobed (finding)[facility]art: 28-88-9413Qjs Assigned At [facility] Generalexual OrientationExec[facility] of [facility] Clinical Notes 09-30-2021 to 11-14-2024 Note Date & VdxwDkdtLyilaqpf38-68-3994 Hospital Discharge instructions Patient Education 11/14/2024 16:17:11 [...] your health care provider. General instructions Take axxq-xre-ropdxtd and prescription medicines only as told by [...] provider. Document Revised: 10/27/2020 Document Reviewed: 10/27/2020 [employer] Patient Education 2023 InMyShow. Follow Up Care 10/10/2024 10:34:03 With:Jacinta Long PA-C, [place] Address: When:Within 3 Month(s) Comments:w/ [facility] [facility] 09-24-2025 NotePatient Education Obstetrics and Gynecology Overactive [...] health care provider. General instructions ??? Take gfwi-ndf-smjoeia and prescription medicines only as told by [...] you drink, and whe (more content not included)...[facility]08-20-2025 Hospital Discharge instructions Patient Education 10/10/2024 [...] your health care provider. General instructions Take xxbh-yij-xhvomkj and prescription medicines only as told by [...] provider. Document Revised: 10/27/2020 Document Reviewed: 10/27/2020 [employer] Patient Education 2023 InMyShow. 10/10/2024 10:31:41 Kegel Exercises Kegel Exercises Kegel [...] provider. Document Revised: 06/18/2021 Document Reviewed: 06/18/2021 [employer] Patient Education 2023 InMyShow. 10/10/2024 10:31:39 Hematuria, Adult Hematuria, Adult Hematuria [...] Follow these instructions at home: Medicines Take erlb-twm-eeixzbh and prescription medicines only as told by [...] or the blood stops without treatment. Take eiau-uts-peibbzy and prescription medicines only as told by your health care provider. Drink enough fluid to keep your urine pale yellow. This information is not intended to replace advice given to you by your health care provider. Make sure you discuss any questions you have with your health care provider. Document Revised: 10/08/2020 Document Reviewed: 10/08/2020 [employer] Patient Education 2023 InMyShow. Follow Up Care 10/04/2024 10:42:48 With:Yogi MEANS, Sharon Patel, URL, URO Address: [address], [place] [address] [phone] When: Unknown Comments:1-2 mos w/ PVR (new med) [facility] Evelyn 08-20-2025 NoteUrology Office/Clinic Note Chief Complaint referral utis, retention HPI Staff Referral from Dr. Palmer for urinary retention. Urine culture @ [facility] 09/21/24 - negative for growth GEORGINA @ [facility] 09/24/24 DR Palmer did some tests and [...] retention, and exacerb (more content not included)... [facility]Comment on above:Result Comment: Electronically Signed By: Sharon Calix MD\.br\Date and Time Signed: 10/10/24 11:06 EDT\.br\Electronically Co-Signed By: Holly Canales\.br\Date and Time Co-Signed: 10/10/24 10:32 [id number] NotePatient Education Obstetrics and Gynecology Overactive Bladder, [...] health care provider. General instructions ??? Take vybc-yhe-gahmhmf and prescription medicines only as told by [...] you drink, and whe (more content not included)...[facility]10-15-[facility] History of Present illness Narrative* Marlena Person MA - 12/06/2023 11:30 AM EDT Images from the original note were not included. Armando Thayer, DO Obstetrics and Gynecology Alexa Delgado 1940 12/06/23 [id number] Yearly Wellness Exam Chief Complaint Patient presents with Gynecologic Exam Medicare yearly. LMP: SUNIL BSO 1972 HRT: None Last pap 12-02-21 neg. Last mammogram 12-05-23 [facility] ordered by PCP. Denies breast [...] Oil) 1000 MG capsule as directed Orally Tmsvoyqmzef-Cszdngqoexj-NMH (Triple Flex) 500-400-125 MG tablet 1 tablet with meals Orally twice daily for 30 days HYDROcodone-acetaminophen (Carroll[place]) 5-325 MG tablet 1 tablet as needed [...] excision of lesion on leg ( benign) AL CAPSULOTOMY POSTERIOR CAPSULAR RELEASE KNEE 05/15/2013 Yttrium aluminum garnet (YAG) capsulotomies AL KNEE SCOPE,CLEAN/DRAIN 10/1998 Dr. De Leon AL LAMNOTMY INCL W/DCMPRSN NRV ROOT 1 INTRSPC CERVC 12/20/2006 L4-5 Hemilaminectomy / Discectomy - Dr. Arshad SALPINGOOPHORECTOMY Left 1981 SKIN SURGERY 12/13/2008 excision neoplasm LT leg TONSILLECTOMY 1958 TOTAL ABDOMINAL HYSTERECTOMY 1973 SUNIL RSO TOTAL KNEE ARTHROPLASTY Right 09/22/2017 Dr. de leon Past Medical History: Diagnosis Date Angina pectoris ([facility]) Angina pectoris ([facility]) 11/2019 hx of hospitalization Melchor's palsy 1960 Breast nodule Cataract 2012 COVID-19 10/2021 hx of hospitalization History of medical problems 1982 MMK LSO HTN (hypertension) ([facility]) Hx of completed stroke hx of stroke at [id number]/ TIA 1984 Kidney disease remission Kidney disease hx of hospitalization Lumbar disc herniation 2007 L4 L5 Miscarriage x3 Pelvic fracture ([facility]) 2018 hx of hospitalization x4 Status post laser cataract surgery of left eye 2014 Stroke ([facility]) 1973 at childbirth TIA (transient [...] costovertebral angle tenderness, no obvious scoliosis/kyphosis. 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 documented in this encounterBarnes-Jewish Saint [facility] [id number] NoteHNO ID: [id number] Author: Carolyn Vanegas MD Service: ? Author [...] Physical Health Percentile 1 (more content not included)...[facility]08-01-2023 Instructions* Patient Instructions* Carolyn Vanegas MD - [...] surgery at this time. [facility] History of Present illness Narrative* Carolyn Vanegas [...] Level: 4 - Moderate documented in this encounterC[facility]07-06-2023 NoteHNO ID: [id number] Author: Kassandra Alves PA-C Service: ? 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 Per review, they have symptoms of lower back pain. Numbness/tingling right leg. Difficulty walking. Weakness Request: 1st available Referring provider: Galina Palmer MD Patient out of state: no 2nd opinion: no Prior spine surgery: yes 2006 [facility] Address: [address] [place] [address] CMT: PT Injections Tylenol Hydrocodone Studies (Reports [...] can be reviewed during the appt [facility] History of Present illness Narrative* Kassandra Alves [...] Prior spine surgery: yes 2006 [facility] Address: [address] [place], [place] [id number] CMT: PT Injections Tylenol Hydrocodone Studies (Reports [...] Health Provider or Pain Management Provider at [facility]? No If answer is YES [...] where the MRI/CT/myelogram was completed: [facility] Address: [address] [place] [id number] MRI/CT/myelogram viewable in Epic: No If not, please provide [phone] to fax in imaging reports for review. [...] and/or physical therapy was completed PT Injection [facility] Address: [address] [place] [address] Have you tried any other kinds of [...] of where the surgery was completed: 2006 [facility] Address: [address] [place] [address] Additional Comments documented in this encounterC[facility]06-29-2023 NoteHNO ID: [id number] Author: Micheal Bowman Service: ? Author Type: ? Type: Progress Notes Filed: 08/26/2022 11:52 AM Note Text: Patient name: Alexa Delgado Are you being referred by a Center for Sp[facility] Health Provider or Pain Management Provider at [facility]? No If answer is YES [...] where the MRI/CT/myelogram was completed: [facility] Address: [address] [place] [address] MRI/CT/myelogram viewable in Epic: No If not, please provide [phone] to fax in imaging reports for review. [...] therapy was completed PT Injection [facility] Address: [address] [place] [address] Have you tried any other kinds of [...] the surgery was completed: 2006 [facility] Address: [address] [place] [address] Additional Comments [place] [id number] NotePROCEDURE: XR HIP RT 2 3V W [...] Electronically authenticated by: HERMES SUAREZ Date: 2022-07-16 11:28[facility]03-24-2023 NoteHNO ID: [id number] Author: Marty Dozier, DO Service: ? Author Type: Physician Type: Progress Notes Filed: 05/15/2022 10:02 PM Note Text: [facility] [place] [facility] [place] [facility] - Medical Spine Initial [...] Ratio: R>L low back Current Treatment: Medications Carrollton 5-325 mg BID - helps Diclofenac 75 [...] but still has pain -01/28/22 Noemi Sequeira [employer]: BL Lumbar erector spinae TPI (0.125% Marcaine, [...] ongoing as of 04/17/21 -03/08/21 Noemi Sequeira [employer]: Left rhomboid TPI (0.125% Marcaine, 40 mg Kenalog) -02/03/21 LESI - moderate relief for 4 days Prior spine surgery: -2006 L4-5 Discectomy Previously treated by: -[facility], previously Dr. [...] has an evaluation [facility]. RECOMMENDATIONS: We will see the patient back in the office after she undergoes evaluation there to discuss her treatment plan thereafter. We will see the patient back in the office in approximately four weeks' time or sooner if needed. PMH: Lumbar scoliosis Depression on Negrita (more content not included)...[facility] 05-14-2022 History of Present illness Narrative* Marty Dozier, - 05/14/2022 3:15 PM EDT Images from the original note were not included. [facility] [place] [facility] - Medical [...] Ratio: R>L low back Current Treatment: Medications [place] 5-325 mg BID - helps Diclofenac 75 [...] but still has pain -01/28/22 Noemi Sequeira [employer]: BL Lumbar erector spinae TPI (0.125% Marcaine, [...] ongoing as of 04/17/21 -03/08/21 Noemi Sequeira [employer]: Left rhomboid TPI (0.125% Marcaine, 40 mg Kenalog) -02/03/21 LESI - moderate relief for 4 days Prior spine surgery: -2006 L4-5 Discectomy Previously treated by: -[facility], previously Dr. [...] has an [facility] at [facility] at [facility]. RECOMMENDATIONS: We [...] 04/04/22 CT abd/pelvis with IV contrast, [facility], report: Abdominal wall: Old healed left pelvis fractures. Degenerative changes and scoliosis of the lumbar spine. IMPRESSION: No acute abdominal pathology. No acute inflammatory process. No obstructing urinary tract stone. No evidence for bowel obstruction. 11/15/21 XR abd, [facility], report: No acute osseous abnormality. There is moderate dextrocurvature of the lumbar spine. 05/08/2021 XR right hip/pelvis, [facility], report: Rotatory dextro scoliosis of [...] 2022 TIME: 3:15 PM documented in this encounterC[facility]03-23-2023 NoteCONSULTATION CONSULTATION DATE: 05/13/2022 TO: Dr. Palmer [...] mg at h.s., diclofenac 75 mg b.i.d., Carrollton 5 mg b.i.d. EXAM: Notable for the [...] has an [facility] at [facility]. RECOMMENDATIONS: We will see the patient back in the office after she undergoes evaluation there to discuss her treatment plan thereafter. We will see the patient back in the office in approximately four weeks' time or sooner if needed.[facility] [id number] NoteCONSULTATION CONSULTATION DATE: 04/06/2022 CHIEF COMPLAINT: Low [...] to kidney dysfunction also. The patient takes Carrollton, however, is very controlled and limits it to the point of detriment. Education was done. The patient was instructed to take the Carrollton to a b.i.d. to t.i.d. basis. The [...] b.i.d. basis. The patient may increase the Carrollton to 5/325 t.i.d. We will schedule the [...] to the procedure. CC: Galina Palmer M.D.[facility] [id number] NoteCONSULTATION CONSULTATION DATE: 03/11/2022 HISTORY OF PRESENT [...] gave improvement for 24 hours. Medications include Carrollton 5/325 b.i.d., diclofenac 75 mg b.i.d., citalopram [...] back pain. PLAN: We will refill her Carrollton 5/325 b.i.d. We will prescribe her Buderer cream with gabapentin, ketorolac and prilocaine/lidocaine to be placed over her right knee. We will trial Requip 0.25 mg q.h.s. We will see the patient in the clinic in three months' time unless otherwise indicated. Patient agrees with the plan.[facility] [id number] NoteCONSULTATION CONSULTATION DATE: 01/28/2022 HISTORY OF PRESENT [...] daily which decreases her pain. Medications include Carrollton 5/325 b.i.d., Flexeril 5 mg b.i.d., diclofenac [...] does consent to. We will refill the Carrollton 5/325 b.i.d. We will pre-authorize for a right genicular nerve block under fluoroscopy. Patient will follow up in the clinic thereafter.[facility] [id number] NoteCONSULTATION PROCEDURE DATE: 01/28/2022 PREOPERATIVE DIAGNOSIS: Bilateral [...] will be followed up in the office.[facility] [id number] Note CONSULTATION CONSULTATION DATE: 12/31/2021 HISTORY OF [...] Current medications include diclofenac 75 mg b.i.d., Carrollton 5/325 b.i.d., citalopram, Flexeril and multivitamin regimen. The patient does state that she breaks her Carrollton in half and the most she takes [...] care and would like to move forward.[facility] [id number] NoteCONSULTATION CONSULTATION DATE: 09/30/2021 This is a very evijlgmr87-quzx-bqb female accompanied by her returning to the [...] Current medications include diclofenac 50 mg b.i.d., Carrollton 5/325 b. i.d. and Tylenol. She does [...] at 25 mg q.h.s. Refill for her Carrollton 5/325 b.i.d. will be sent as well. The patient is to continue with her vitamin regimen which she is currently compliant with, as well as heat application and pool exercises. The patient will be followed up in the office in three months' time unless otherwise indicated. The patient agrees with the plan of care.[facility] Evaluation + Plan note Future Appointments Appointment Date:11/14/2024 03:00:00 PM Scheduled Provider:Jacinta Long PA-C Location:[facility] Appointment Type:URO Office Visit [facility] evaluation + Plan note Future Appointments Appointment Date:02/26/2025 03:10:00 PM Scheduled Provider:Jacinta Long PA-C Location:[facility] Appointment Type:URO Office Visit [facility] evaluation note* Diagnosis Chronic bilateral low back pain with right-sided sciatica- Primary Back pain, lumbosacral Lumbago Chronic sacroiliac joint pain Disorders of sacrum Lumbar spondylosis Lumbosacral spondylosis without myelopathy Scoliosis of lumbar spine, unspecified scoliosis type [facility] Diagnosis Spinal stenosis, lumbar region with neurogenic claudication- Primary Spondylolisthesis, lumbar region Other idiopathic scoliosis, lumbar region documented in [facility]* Diagnosis Obesity, Class I, BMI 30-34.9- Primary Obesity, unspecified Spinal stenosis, lumbar region with neurogenic claudication [facility]* Diagnosis Encounter for gynecological examination without abnormal finding Encounter for Papanicolaou smear of vagina Breast cancer screening by mammogram documented in this encounter [facility]Evaludel[facility] noteNo assessment information availableOhiohealth Riverside [facility] Work Phone: Hospital course Narrative No data available for this section [facility] progress note No data available for this section [facility] reason for referral (narrative)No reason for referral information availableOhiohealth Riverside Methodist Hospital Work Phone: Summary Purpose Family History [...] Referral SpecialtyDiagnoses / ProceduresReferred By ContactReferred To [facility] Diagnoses Spinal stenosis, lumbar region with neurogenic claudication Procedures CONSULT TO [facility]) OFFICE/OUTPATIENT [facility] 60-74 MINUTES Carolyn Vanegas MD [address] [place] [address] Referral IDStatusReasonStart DateExpiration DateVisits RequestedVisits [id number] Review PCP Requested Referral / Additional Source Comments INFORMATION SOURCE (unrecogn ized section and content) DATE CREATED AUTHOR 09/13/2017 [facility] DATE CREATED AUTHOR AUTHOR'S ORGANIZ ATION 12/13/2020 [facility] DATE CREATED AUTHOR AUTHOR'S ORGANIZ ATION 07/30/2022 [facility] DATE CREATED AUTHOR AUTHOR'S ORGANIZ ATION 09/22/2022 [facility] DATE CREATED AUTHOR AUTHOR'S ORGANIZ ATION 12/08/2023 [facility] DATE CREATED AUTHOR AUTHOR'S ORGANIZ ATION 10/10/2024 [facility] DATE CREATED AUTHOR AUTHOR'S ORGANIZ ATION 10/13/2024 [facility] DATE CREATED AUTHOR AUTHOR'S ORGANIZ ATION 11/16/2024 [facility] Source Comments (unrecognize d section and content) In the event this informatio n is protected by the Federal Confidentiality of Alcohol and Drug Abuse Patient Records regulations: The Federal rules restrict any use of the information to criminally investigate or prosecute any alcohol or drug abuse patient.[facility] General[facility] the event this information is protected by the Federal Confidentiality of Alcohol and Drug Abuse Patient Records regulations: The Federal rules restrict any use of the information to criminally investigate or prosecute any alcohol or drug abuse patient.[facility] GeneralIn the event this information is protected by the Federal Confidentiality of Alcohol and Drug Abuse Patient Records regulations: The Federal rules restrict any use of the information to criminally investigate or prosecute any alcohol or drug abuse patient.[facility] Reason for Visit (unrecogniz ed section and content) ReasonCommentsNew Patient EvaluationLow Back PainReasonCommentsNew PatientReason CommentsGynecologic ExamMedicare yearly.LMP: SUNIL BSO 1973HRT: NoneLast pap 12-02-21 neg.Last mammogram 12-05-23 [facility] ordered by PCP.Denies breast or urinary concerns.bowel concernSome rectal bleeding with bowel movements. Denies difficulty having a bowel movement. Care Teams (unrecognized sec tion and content) Team MemberRelationshipSpecialtyStart [facility] Galina Palmer MD [address] [place] [address] PCP - [facility]05/14/22 Colette De Leon Jr., DO [address] [place] [address] ReferringOrthopedics05/03/22 Lakshmipathy, Narendranath [address] [phone] Pain Management05/14/22 Colette De Leon Jr., DO [address] [place] [address] Orthopedic05/14/22Team MemberRelationshipSpecialtyStart [facility] Galina Palmer MD [address] [place] [address] PCP - [facility]05/14/22 Colette De Leon Jr., DO [address] [facility] [address] [place] [address] ReferringOrthopedics05/03/22 Lakshmipathy, Narendranath [address] [phone] Pain Management05/14/22 Colette De Leon Jr., DO [address] [place] [address] Orthopedic05/14/22 Galina Palmer MD [address] [place] [address] ReferringFamily Medicine08/11/22Team MemberRelationshipSpecialtyStart End Galina Palmer MD [address] [place] [address] PCP - GeneralFamily Medicine05/14/22 Colette De Leon Jr., DO [address] [facility] [address] [place] [address] ReferringOrthopedics05/03/22 ShermiPorsha santillan [address] [phone] Pain Management05/14/22 Colette De Leon Jr., DO [address] [facility] [address] [place] [address] Orthopedic05/14/22 Galina Palmer MD [address] [place] [address] ReferringFami Medicine08/11/22Team MemberRelationshipSpecialtyStart DateEnd Date Galina Palmer MD [address] [place] [address] PCP - GeneralFamily Medicine08/02/22 Team Status: Inactive [...] BE BASED ON THE PRIMARY CLINICAL RECORDS. [facility] [employer] [facility]. provides no warranty or guarantee of the accuracy or completeness of information in this document.
--- NOTE | 2025-01-31 14:58 | PM.CN ---
Consult Note: HPI Data of Consult Patient: known to practice within the last 3 years Consult date: 01/31/25 Requesting Physician: Vivian Meza NP Primary Care Provider: Luis Rogers MD Consult Narrative Reason for consult: f/u Narrative: Alexa Delgado a pleasant 84 year old female presents for evaluation and management of chronic low back and bilateral SIJ pain. Patient rating pain 1/10 today, pain increasing to 5/10 at times with activity, standing, sleeping. pain improved with lying down, heat, and medications. Patient has found significant improvement in pain and functional ability with past procedures and current medication regimen. currently taking gabapentin 100mg BID, norco 5-325mg BID-TID PRN, tylenol prn. is also on diclofenac and flexeril through outside providers. pt recently underwent left L4-5 L5-S1 TFESI with >50% improvement in [place]. cc:: CC: Vivian Meza NP Review of Systems ROS Musculoskeletal Reports: back pain and joint pain PFSH PFSH Medical History Chest pain, rule out acute myocardial infarction ?R07.9 - Chest pain, unspecified (ICD-10) CAD (coronary artery disease) ?I25.10 - Atherosclerotic heart disease of nome coronary artery without angina pectoris (ICD-10) Hypothyroid ?E03.9 - Hypothyroidism, unspecified (ICD-10) Hypertension ?I10 - Essential (primary) hypertension (ICD-10) Pelvic fracture ?S32.9XXA - Fracture of unspecified parts of lumbosacral spine and pelvis, initial encounter for closed fracture (ICD-10) TIA (transient ischemic attack) ?G45.9 - Transient cerebral ischemic attack, unspecified (ICD-10) Closed fracture of coccyx ?S32.2XXA - Fracture of coccyx, initial encounter for closed fracture (ICD-10) Osteoarthritis ?M19.90 - Unspecified osteoarthritis, unspecified site (ICD-10) H/O pyelonephritis ?Z87.448 - Personal history of other diseases of urinary system (ICD-10) Syncope ?R55 - Syncope and collapse (ICD-10) Generalized weakness ?R53.1 - Weakness (ICD-10) Dizziness ?R42 - Dizziness and giddiness (ICD-10) Surgical History Pain management ?R52 - Pain, unspecified (ICD-10) H/O bladder repair surgery ?Z98.890 - Other specified postprocedural states (ICD-10) H/O breast surgery ?Z98.890 - Other specified postprocedural states (ICD-10) H/O knee surgery ?Z98.890 - Other specified postprocedural states (ICD-10) H/O foot surgery ?Z98.890 - Other specified postprocedural states (ICD-10) History of right knee joint replacement ?Z96.651 - Presence of right artificial knee joint (ICD-10) History of YAG laser capsulotomy of lens ?Z98.49 - Cataract extraction status, unspecified eye (ICD-10) Hx laparoscopic cholecystectomy ?Z90.49 - Acquired absence of other specified parts of digestive tract (ICD-10) H/O: hysterectomy ?Z90.710 - Acquired absence of both cervix and uterus (ICD-10) History of arthroscopic knee surgery ?Z98.890 - Other specified postprocedural states (ICD-10) H/O discectomy ?Z98.890 - Other specified postprocedural states (ICD-10) H/O dilation and curettage ?Z98.890 - Other specified postprocedural states (ICD-10) History of appendectomy ?Z90.49 - Acquired absence of other specified parts of digestive tract (ICD-10) Hx of tonsillectomy ?Z90.89 - Acquired absence of other organs (ICD-10) Family History Other Family history of CHF (congestive heart failure) Social History Within the past year, how often did you have a drink containing alcohol: never Score interpretation: A score less than 3 is consistent with normal alcohol consumption. Smoking status: Never smoker Non-prescribed substance use: denies use Previous occupational history: Retired, , lives at home Highest level of school completed/degree received: high school graduate Are you now , , , , never or living with a partner: In a typical week, how many times do you talk on the telephone with family, friends, or neighbors: once per week How often do you get together with friends or relatives: once per week How often do you attend christianity or scientologist services: 1-3 times per year Little interest or pleasure in doing things: not at all Feeling down, depressed, or hopeless: not at all Feel stressed/tense/nervous/anxious/difficulty sleeping: not at all Gender Identity: female Meds Home Medications and Allergies Home Medications ?Medication ?Instructions ?Recorded ?Confirmed ?Type capsaicin 0.025 % topical patch 1 patch topical DAILY pain 07/26/22 01/21/25 History (Salonpas-Hot) citalopram 10 mg tablet 10 mg PO DAILY 07/26/22 01/21/25 History fexofenadine 180 mg tablet 180 mg PO DAILY 07/26/22 01/21/25 History (Benita Allergy) flaxseed oil 1,000 mg capsule 1,000 mg PO DAILY 07/26/22 01/21/25 History glucosamine 750 fi-qokpdl-eyi 2-C 1 tab PO DAILY 07/26/22 01/21/25 History 30 mg-D3 1,000 unit-maida 1 mg tablet (Snuwddkqatq-Wypwyzeylus-KVQ + vitD) isosorbide mononitrate 30 mg 30 mg PO DAILY 07/26/22 01/21/25 History tablet,extended release 24 hr liothyronine 25 mcg tablet 25 mcg PO DAILY 07/26/22 01/21/25 History (Cytomel) melatonin 3 mg capsule 3 mg PO DAILY 07/26/22 01/21/25 History metoprolol succinate 50 mg 50 mg PO BID 07/26/22 01/21/25 History tablet,extended release 24 hr multivitamin 1 tab PO DAILY 07/26/22 01/21/25 History nitroglycerin 0.4 mg sublingual 0.4 mg sublingual Q5M PRN chest 07/26/22 01/21/25 History tablet pain cyclobenzaprine 10 mg tablet 10 mg PO BEDTIME 04/20/23 01/21/25 History ferrous sulfate 325 mg (65 mg 325 mg PO BID 09/02/23 01/21/25 History iron) tablet diclofenac sodium 75 mg 75 mg PO BID 10/13/23 01/21/25 History tablet,delayed release levothyroxine 75 mcg tablet 75 mcg PO QAM 10/13/23 01/21/25 History pantoprazole 40 mg tablet,delayed 40 mg PO DAILY #30 tabs 10/13/23 01/21/25 Rx release (Protonix) calcium 600 mg (as carbonate)-vit 1 tab PO BID 11/04/23 01/21/25 History D3 20 mcg (800 unit) chewable tablet (Caltrate plus D) hydrocodone 5 mg-acetaminophen 325 1 tab PO TID PRN pain #90 tabs 01/05/24 01/21/25 Rx mg tablet gabapentin 100 mg capsule 100 mg PO BID #60 caps 09/19/24 01/21/25 Rx Allergies Allergy/AdvReac Type Severity Reaction Status Date / Time Penicillins Allergy Severe Hives Verified 01/21/25 09:45 codeine AdvReac Intermediate Dizziness Verified 01/21/25 09:45 fluconazole (From Diflucan) AdvReac Intermediate Hives Verified 01/21/25 09:45 quinine (From Quinamm) AdvReac Mild Headache Verified 01/21/25 09:45 pregabalin (From Lyrica) AdvReac Dizziness Verified 01/21/25 09:45 propoxyphene (From Darvon) AdvReac Headache Verified 01/21/25 09:45 decongest multi-action AdvReac Mild Headache Uncoded 01/21/25 09:45 Exam Narrative Exam Narrative: BP significantly elevated 210/83, denies chest pain blurred vision SOB nausea GERD or headaches Constitutional Documenting provider has reviewed patient's vital signs: yes Common normals: no apparent distress, oriented x3 and alert General appearance: cooperative HENCO Common normals: normocephalic, hearing grossly normal bilaterally and moist oral mucous membranes Head and scalp: normocephalic Eye Common normals: PERRL Pupil: PERRL Neck & C-Spine Common normals: full ROM General: normal visual inspection Chest Common normals: inspection of chest normal Respiratory Common normals: normal respiratory effort, no retractions and no use of accessory muscles Back & Pelvis Lumbar spine/lower back: ROM limited, pain with ROM and straight leg raise negative bilaterally Sacroiliac joints: SI joint(s) abnormal Other: bilateral SIJ positive marge(patricks), gaenslens, thigh thrust, compression test Extremity Common normals: normal to inspection Right upper extremity: hand and digits Left upper extremity: hand and digits Other: intermittent locking up of bilateral thumbs, notable joint deformation with enlarged joints Neuro Sensorium/orientation: alert, oriented to person and oriented to place; not oriented to time Gait (neuro): antalgic and assistive device used walker Motor exam: no movement abnormalities noted and strength abnormal Psych Common normals: mental status grossly normal, thought process normal, cooperative, affect normal, speech normal and activity/motor behavior normal Speech: normal speech Thought process: normal thought process Results Additional Findings Additional findings: If on a controlled substance or opioids, I have checked an [place] report on this patient and there are no aberrancies noted in the prescribing history.??If on a controlled substance or opioid a drug screen was completed and reviewed within the last year, and if there has not been a drug screen completed we ordered one today to monitor higher risk, state monitored pain medication use. As part of providing excellent, safe, comprehensive care, the following was completed at our patient's visit: 1. A medication reconciliation and review to ensure accurate knowledge of current/active medications, including asking our patients to inform us about any rlbd-iuq-ltneqln medications or herbal remedies/nutritional supplements/alternative remedies. 2. A review to specifically ensure our patients have had annual screening for screening for depression, screening for tobacco use, and screening for unhealthy alcohol use. For concerning screenings had a discussion with the patient, provided patient education, and recommended follow-up with primary care provider when appropriate. If patient noted with a risk of falling, they received education on strength, gait, and balance training to prevent future risk of falling. Portions of this note may have been carried over from the previous visit and updated as appropriate. Please note this office utilizes paper charting in addition to the electronic medical record. A list of current medications, vitals, and PMH is available there as the clinical staff outside of myself do not have access to [employer] charting during the clinic day operations. As part of providing quality comprehensive care the current medications, vitals, and PMH were reviewed in the paper chart. Assessment and Plan Assessment and Plan (1) Sacroiliitis: (2) Lumbar stenosis with neurogenic claudication: (3) Myalgia, other site: (4) Chronic, continuous use of opioids: Assessment and Plan: I feel these medications are improving the patient's quality of life and allow them to tolerate activities of daily living as well as participate in recreational activity.? The patient does not report intolerable side effects. The patient is NOT opioid naive and non-pharmacologic and non-opioid treatment has failed to significantly relieve the patient's pain and improve functionality. The patient has a diagnosis that is related to a somatic or visceral pain etiology. ? ?? I reviewed with the patient the potential risks and side effects with the use of? opioid medications including but not limited to respiratory depression,? sedation, and even . Within the last 12 months I have verified the patient has access to naloxone should? these effects occur. The patient was advised to let? their family know they had Naloxone in case they would need to administer? the medication. I advised the patient to avoid the use of any other? sedation substances including alcohol, THC, and benzodiazepines while? taking opioid medications due to the risk of compounding side effects and? detrimental outcomes. within the last 12 months I have reviewed the SEED LABORATORY ASSISTANT, pain treatment agreement and urine drug screen.? ?? A drug screen was completed within the last year, and no aberrancies were noted regarding their use of controlled substances. The patient understands they are subject to the terms and conditions of the pain contract that they have signed. ? ?? I have checked an [place]AR[place] report on this patient today and there are no aberrancies noted in the prescribing history.? (5) Lumbar spondylosis: (6) Asymptomatic hypertension: Assessment and Plan: pt advised to call pcp and monitor home BP TID for at least 1 week and notify PCP. pt denies symptoms, reports today has been stressful and shes been on the move all day. Plan The patient has had over 3 months of moderate to severe low back and bilateral SIJ pain with functional impairment and inadequate response to conservative care including NSAIDS (unless there are contraindication such as concurrent blood thinners), multiple oral or topical pain medications, and home exercise program/physical therapy.? Patient has completed >6 weeks of guided home exercise program and/or formal physical therapy program without relief of their symptoms.? I have reviewed the imaging of the lumbar spine and no red flags were identified.? The Oswestry Disability Index was not completed by the patient repeat bilateral SIJ injection under fluoroscopy, prior injection provided at least 50% improvement for 3 months maintain medications, risks vs benefits reviewed continue HEP and aquatherapy as tolerated f/u after injection
== END 2025-01-31 14:11 | disposition home or self-care (01) ==
LOC: PM 14:10
PROVIDERS: PCP Family Medicine; Visit Provider Nurse Practitioner
DX: M46.1 Sacroiliitis, not elsewhere classified (principal); M48.062 Spinal stenosis, lumbar region with neurogenic claudication; M79.18 Myalgia, other site; Z79.891 Long term (current) use of opiate analgesic; M47.816 Spondylosis without myelopathy or radiculopathy, lumbar region; I10 Essential (primary) hypertension
CPT/HCPCS: G0463

== ENCOUNTER 2025-02-20 14:46 | Outpatient (OUT) | payer MEDICARE, SELFPAY ==
--- OUTSIDE RECORDS SUMMARY | 2025-02-20 05:29 | XMS_ITS ---
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 Name Role Phone Bang Rogers Primary Care Provider Encounters Encounter Location Date Provider Diagnosis [facility] [place] [address] [place] [address] 02/20/2025 Bang Rogers Confusion R41.0 ; Hypothyroidism E03.9 and Hypertension I10 Assessments Encounter Date Diagnosis (ICD Code) Assessment Notes Treatment Notes Treatment Clinical Notes Section Notes 02/20/2025 Confusion (ICD-10 - R41.0) 02/20/2025Hypothyroidism (ICD-10 - E03.9)02/20/2025Hypertension (ICD-10 - I10) Plan Of Treatment Pending Test Test Name Order Date Urinalysis Microscopic 02/20/2025 CBC AUTO DIFF 02/20/2025 CULTURE URINE 02/20/2025 IRON 02/20/2025 PROF 14(COMP METB) 02/20/2025 VITAMIN D 25 OH 02/20/2025 THYROID PANEL (T4/TSH/FREE T3) Progress Notes * Alexa CORMIER LDOB: 0 (84 yo F)Acc No.[id number]:02/20/2025 Patient:?Alexa CORMIER :1940???Age:84 Y???Sex:FemalePhone:[phone] Address:[address] [place] [id number] Subjective: * Chief Complaints: * * Medical History: * Surgical History: * Hospitalization/Major Diagno stic Procedure: * Medications: Objective: * Vitals: * Physical Examination: ??? Assessment: * Assessment: 1.?Confusion - R41.0 (Primary)???2.?Hypothyroidism - E03.9??&#160 ;3.?Hypertension - I10??? Plan: * Treatment: ?LAB: Urinalysis Microscopic ?LAB: CBC AUTO DIFF ?LAB: CULTURE URINE ?LAB: IRON ?LAB: PROF 14(COMP METB) ?LAB: VITAMIN D 25 OH ?LAB: THYROID PANEL (T4/TSH/FREE T3)2.?Hypothyroidism?LAB: Urinalysis Microscopic ?LAB: CBC AUTO DIFF ?LAB: CULTURE URINE ?LAB: IRON ?LAB: PROF 14(COMP METB) ?LAB: VITAMIN D 25 OH ?LAB: THYROID PANEL (T4/TSH/FREE T3)3.?Hypertension?LAB: Urinalysis Microscopic ?LAB: CBC AUTO DIFF ?LAB: CULTURE URINE ?LAB: IRON ?LAB: PROF 14(COMP METB) ?LAB: VITAMIN D 25 OH ?LAB: THYROID PANEL (T4/TSH/FREE T3) * Procedure Codes: * true * Date:?Generated for Printing/Faxing/eTransmitting on:?02/20/2025 02:52 PM EST
--- OUTSIDE RECORDS SUMMARY | 2025-02-20 14:52 | XMS_ITS | Patient Health Record ---
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 Name Role Phone Bang Rogers Primary Care Provider Judi Wiseman Unavailable [phone] Allergies Allergen (clinical drug ingredient) Drug/Non Drug Allergy documented on EMR Reaction Allergy Type Onset Date Status DarvonUnknownDrug AllergyActivefluconazoleDiflucanUnknownDrug AllergyActive pregabalinLyricaUnknownDrug AllergyActivecodeineCodeineUnknownDrug AllergyActive PenicillinUnknownDrug AllergyActivequinineQuinineUnknownDrug AllergyActive Results Component Value Reference Range Notes CBC AUTO DIFF Reviewed date:03/23/2024 09:20:24 AM Interpretation: Performing Lab: Notes/Report: [facility] , White Blood Count 4.3 4.0-11.0 10 3/uL Red Blood Count3.744.20-5.40 10 6/uBUzaoomanax65.812.0-16.0 g/lMLgehkgjvrr25.8 36.0-48.0 %Mean Corpuscular Fwsydz70.781.0-99.0 fLMean Corpuscular Hemoglobin 31.626.7-34.0 pgMean Corpuscular HGB Conc33.029.9-35.2 g/dLRed Cell Distribution Width13.111.0-15.0 %Platelet Kywhq210233-375 10 3/uLMean Platelet Volume9.29.5- 13.5 fLPerforming Lab:see noteML - [facility] LBPROF 14(COMP METB) Reviewed date:03/23/2024 09:20:24 AM Interpretation: Performing Lab: Notes/Report: [facility] ,Stppbg382528-659 mmol/LPotassium2.83.5-5.1 mmol/LRESULTS CALLED TO JUAN RAMON CARD[employer]ZO [employer] DEVELOPER AT 3463Pfjaolli17498-207 mmol/LCarbon Yoctetx55.621.0-32.0 mmol/LAnion Gap 11.8Smvsznb6681-536 mg/dLBlood Urea Ionnsauq65.07.0-18.0 mg/dLCreatinine1.20 0.55-1.02 mg/dLEstimated GFR ( Rwtbyis02>=60 mL/min/1.73m 2Estimated GFR (Non- Ame43>=60 mL/min/1.73m 2BUN Creatinine Ratio18.9Ouuxlbs5.88.5-10.1 mg/dLBilirubin Total0.40.2-1.0 mg/dLAspartate Amino Bkydhtzpmko2250-36 U/L Alanine Jxrzcfulrcnyjicl1831-18 U/LAlkaline Ezaahcyoexn7986-729 U/LTotal Protein 6.46.4-8.2 g/dLAlbumin Level3.33.4-5.0 g/dLGlobulin3.1Albumin Globulin Ratio1.1 Performing Lab:see noteML - [facility] LBPROF 14(COMP METB) Reviewed date:04/04/2024 12:57:35 PM Interpretation: Performing Lab: Notes/Report: [facility] ,Ohjgbh587597-018 mmol/LPotassium4.63.5-5.1 mmol/SJfauguza2975-976 mmol/LCarbon Iupsgwc45.721.0-32.0 mmol/LAnion Gap10.1Jmkqvrm77767-649 mg/dLBlood Urea Ulmdpppb64.07.0-18.0 mg/dLCreatinine1.110.55-1.02 mg/dLEstimated GFR ( Anwkvuz27>=60 mL/min/1.73m 2Estimated GFR (Non- Ame47>=60 mL/min/1.73m 2 BUN Creatinine Ratio15.2Bqjkuux2.38.5-10.1 mg/dLBilirubin Total0.30.2-1.0 mg/dL Aspartate Amino Mhsojdvotum5168-28 U/LAlanine Hdvlndekpmuwyyev8302-15 U/L Alkaline Lclzoynopdj1160-368 U/LTotal Protein6.66.4-8.2 g/dLAlbumin Level3.43.4- 5.0 g/dLGlobulin3.2Albumin Globulin Ratio1.1Performing Lab:see noteML - [facility] LBCT PELVIS WO CON Reviewed date:07/23/2024 08:48:43 PM Interpretation: Performing Lab: Notes/Report: Source Facility: [place] [address] CT Scan Report Signed Patient: ALEXA DELGADO MR#: [id number] : 1940 Acct:[id number] Age/Sex: 84 / F ADM Date: 07/23/24 Loc: ER Attending Dr: Ordering Physician: Pauline Ferrell Date of Service: 07/23/24 Procedure(s): CT pelvis wo con Accession Number(s): [id number] cc: Galina Rogers M.D. [place] [address] Patient Name: ALEXA DELGADO MRN: [id number] date: 1940 Sex: F Assigned Patient Location: ED.MAIN Current Patient Location: ED.MAIN Accession/Order Number: [id number] Exam Date: 07/23/2024 14:42 Report Date: 07/23/2024 [...] Patel M.D. 07/23/2024 2:46 PM Dictation Location: [place] [address] Electronically authenticated by: [id number] Y Date: 07/23/2024 14:46 Dictated By: Yovany Patel M.D. Signed By: 07/23/24 1448 DD/ 1446 TD/TT: Corporate Wellness Coordinator:XR KNEE RT 3V Reviewed date:07/23/2024 08:48:43 PM Interpretation: Performing Lab: Notes/Report: Source Facility: [place] [address] XRay Report Signed Patient: ALEXA DELGADO MR#: [id number] : 1940 Acct:[id number] Age/Sex: 84 / F ADM Date: 07/23/24 Loc: ER Attending Dr: Ordering Physician: Pauline Ferrell Date of Service: 07/23/24 Procedure(s): XR knee RT 3V Accession Number(s): [id number] cc: Galina Rogers M.D.; Pauline Ferrell [place] [address] Patient Name: ALEXA DELGADO MRN: [id number] date: 1940 Sex: F Assigned Patient Location: ED.MAIN Current Patient Location: ED.MAIN Accession/Order Number: [id number] Exam Date: 07/23/2024 14:46 Report Date: 07/23/2024 [...] Patel M.D. 07/23/2024 2:46 PM Dictation Location: [place] [address] Electronically authenticated by: [id number] Y Date: 07/23/2024 14:46 Dictated By: Yovany Patel M.D. Signed By: 07/23/24 1449 DD/ 1446 TD/TT: Corporate Wellness Coordinator:CT head/brain wo con Reviewed date:07/23/2024 08:48:43 PM Interpretation: Performing Lab: Notes/Report: Source Facility: [place] [address] CT Scan Report Signed Patient: ALEXA DELGADO MR#: [id number] : 1940 Acct:[id number] Age/Sex: 84 / F ADM Date: 07/23/24 Loc: ER Attending Dr: Ordering Physician: Pauline Ferrell Date of Service: 07/23/24 Procedure(s): CT head/brain wo con Accession Number(s): [id number] cc: Galina Rogers M.D. [place] [address] Patient Name: ALEXA DELGADO MRN: [id number] date: 1940 Sex: F Assigned Patient Location: ED.MAIN Current Patient Location: ED.MAIN Accession/Order Number: [id number] Exam Date: 07/23/2024 14:31 Report Date: 07/23/2024 [...] Patel M.D. 07/23/2024 2:38 PM Dictation Location: [place] [address] Electronically authenticated by: [id number] Y Date: 07/23/2024 14:38 Dictated By: Yovany Patel M.D. Signed By: 07/23/24 1440 DD/ 1438 TD/TT: Corporate Wellness Coordinator:XR shoulder LT min 2V Reviewed date:07/23/2024 08:48:43 PM Interpretation: Performing Lab: Notes/Report: Source Facility: [facility]-[address] [place] [address] [place] [address] XRay Report Signed Patient: ALEXA DELGADO MR#: [id number] : 1940 Acct:[id number] Age/Sex: 84 / F ADM Date: 07/23/24 Loc: ER Attending Dr: Ordering Physician: Pauline Ferrell Date of Service: 07/23/24 Procedure(s): XR shoulder LT min 2V Accession Number(s): [id number] cc: Galina Rogers M.D.; Pauline Ferrell [place] [address] Patient Name: ALEXA DELGADO MRN: [facility]:[id number] date: 1940 Sex: F Assigned Patient Location: ED.MAIN Current Patient Location: ED.MAIN Accession/Order Number: [id number] Exam Date: 07/23/2024 14:47 Report Date: 07/23/2024 [...] Patel M.D. 07/23/2024 2:48 PM Dictation Location: [place] [address] Electronically authenticated by: [id number] Y Date: 07/23/2024 14:48 Dictated By: Yovany Patel M.D. Signed By: 07/23/24 1451 DD/ 1448 TD/TT: Corporate Wellness Coordinator:CT cervical spine wo con Reviewed date:07/23/2024 08:48:43 PM Interpretation: Performing Lab: Notes/Report: Source Facility: [facility] [address] [address] Scan Report Signed Patient: ALEXA DELGADO MR#: [id number] : 1940 Acct:[id number] Age/Sex: 84 / F ADM Date: 07/23/24 Loc: ER Attending Dr: Ordering Physician: Pauline Ferrell Date of Service: 07/23/24 Procedure(s): CT cervical spine wo con Accession Number(s): [id number] cc: Galina Rogers M.D. [place] [address] Patient Name: ALEXA DELGADO MRN: [id number] date: 1940 Sex: F Assigned Patient Location: ED.MAIN Current Patient Location: ED.MAIN Accession/Order Number: [id number] Exam Date: 07/23/2024 14:38 Report Date: 07/23/2024 [...] Patel M.D. 07/23/2024 2:42 PM Dictation Location: [place] [address] Electronically authenticated by: [id number] Y Date: 07/23/2024 14:42 Dictated By: Yovany Patel M.D. Signed By: 07/23/24 1445 DD/ 144 TD/TT: Corporate Wellness Coordinator:XR forearm LT 2V Reviewed date:07/23/2024 08:48:43 PM Interpretation: Performing Lab: Notes/Report: Source Facility: [place] [address] XRay Report Signed Patient: ALEXA DELGADO MR#: [id number] : 1940 Acct:[id number] Age/Sex: 84 / F ADM Date: 07/23/24 Loc: ER Attending Dr: Ordering Physician: Pauline Ferrell Date of Service: 07/23/24 Procedure(s): XR forearm LT 2V Accession Number(s): [id number] cc: Galina Rogers M.D.; Pauline Ferrell [place] [id number] Patient Name: ALEXA DELGADO MRN: [id number] date: 1940 Sex: F Assigned Patient Location: ED.MAIN Current Patient Location: ED.MAIN Accession/Order Number: [id number] Exam Date: 07/23/2024 14:47 Report Date: 07/23/2024 [...] Patel M.D. 07/23/2024 2:47 PM Dictation Location: [place] [address] Electronically authenticated by: [id number] Y Date: 07/23/2024 14:47 Dictated By: Yovany Patel M.D. Signed By: 07/23/24 1450 DD/ 1447 TD/TT: Corporate Wellness Coordinator:CBC AUTO DIFF Reviewed date:09/23/2024 07:33:22 PM Interpretation: Performing Lab: Notes/Report: [facility] ,White Blood Count3.94.0-11.0 10 3/uLRed Blood Count3.664.20-5.40 10 6/uL Cwsxkfzgfr65.512.0-16.0 g/rLXszdwmwmld72.436.0-48.0 %Mean Corpuscular Djssvy01.7 81.0-99.0 fLMean Corpuscular Qnabjjsajc27.426.7-34.0 pgMean Corpuscular HGB Conc 32.529.9-35.2 g/dLRed Cell Distribution Width12.611.0-15.0 %Platelet Mamet919 150-450 10 3/uLMean Platelet Volume9.49.5-13.5 fLNeutrophils Percent Auto72.7 43.0-75.0 %Lymphocytes Percent Auto5.220.5-60.0 %Monocytes Percent Auto20.11.7- 12.0 %Eosinophils Percent Auto1.00.9-7.0 %Basophils Percent Auto0.50.2-2.0 % Immature Granulocytes Pct Auto0.50.0-0.5 %Neutrophils Absolute Auto2.81.4-6.5 10 3/uLLymphocytes Absolute Auto0.21.2-3.8 10 3/uLMonocytes Absolute Auto0.80.3-0.8 10 3/uLEosinophils Absolute Auto0.00.0-0.7 10 3/uLBasophils Absolute Auto0.00.0- 0.1 10 3/uLImmature Granulocytes Abs Auto0.020.00-0.03 10 3/uLPerforming Lab:see noteML - [facility] LBPROF 14(COMP METB) Reviewed date:09/23/2024 07:33:22 PM Interpretation: Performing Lab: Notes/Report: [facility] ,Duhwis838008-838 mmol/LPotassium3.93.5-5.1 mmol/YZsgukirj0019-488 mmol/LCarbon Ppuyxnk17.921.0-32.0 mmol/LAnion Gap11.7Ieruxib9203-499 mg/dLBlood Urea Nitrogen 29.07.0-18.0 mg/dLCreatinine0.960.55-1.02 mg/dLEstimated GFR ( Maddy>60 >=60 mL/min/1.73m 2Estimated GFR (Non- Ame55>=60 mL/min/1.73m 2BUN Creatinine Ratio30.4Ybdwkvm4.78.5-10.1 mg/dLBilirubin Total0.40.2-1.0 mg/dL Aspartate Amino Rrlcepfxsyv0214-24 U/LAlanine Hesbyxvkmyiuluae1523-20 U/L Alkaline Tyckribfjjj8485-590 U/LTotal Protein7.36.4-8.2 g/dLAlbumin Level3.63.4- 5.0 g/dLGlobulin3.7Albumin Globulin Ratio1.0Performing Lab:see noteML - [facility] LBUA RANDOM W or MICROSCOPIC Reviewed date:09/23/2024 07:33:22 PM Interpretation: Performing Lab: Notes/Report: [facility] ,Color UrineLT. YELLOWYELLOWClarity UrineCLEARCLEARSpecific [place] Urine1.010 1.005-1.025pH Urine7.55.0-9.0Protein UrineNEGATIVENEG/TRACE mg/dLGlucose Urine UANEGATIVENEGATIVE mg/dLBilirubin UrineNEGATIVENEGATIVEKetones UrineNEGATIVE NEGATIVE mg/dLBlood UrineTRACE-INEGATIVENitrite UrineNEGATIVENEGATIVE Urobilinogen Urine0.20.2-1.0 EU/dLLeukocyte Esterase UrineTRACENEGATIVEWBC Urine 0-2NONE SEEN #/HPFRBC Urine0-20-2 #/HPFBacteria UrineTRACENONE SEEN #/HPFMucus UrineNONE SEENNONE SEENSquamous Epithelial Cell UrineRARENONE/RARE #/LPFCrystals Seen?None SeenNone Seen #/HPFCast Seen?NONE SEENNONE SEEN #/LPFPerforming Lab: see noteML - [place] LBUrine Culture - [facility] Reviewed date:09/24/2024 06:32:44 PM Interpretation: Performing Lab: Notes/Report: [facility] ,Urine Culture - FRMCSee Below For Report Urine Culture - [facility] No Growth 2 Days [facility] No Growth 2 Days [facility] - [facility]CTesting [facility] at [facility] Urine Culture - FR No Growth 2 Days Urine Culture - FCRP[address] [place] [address] Urine Culture - FR No Growth 2 Days Performing Lab:see noteML - [place] LBUS renal bladder Reviewed date:09/24/2024 12:59:18 PM Interpretation: Performing Lab: Notes/Report: Source Facility: [place] [address] Ultrasound Report Signed Patient: ALEXA DELGADO MR#: [id number] : 1940 Acct:[id number] Age/Sex: 84 / F ADM Date: 09/24/24 Loc: US Attending Dr: Galina Rogers M.D. Ordering Physician: Galina Rogers M.D. Date of Service: 09/24/24 Procedure(s): US renal bladder Accession Number(s): [id number] cc: Galina Rogers M.D. [place] [address] Patient Name: ALEXA DELGADO MRN: [id number] date: 1940 Sex: F Assigned Patient Location: US Current Patient Location: US Accession/Order Number: [id number] Exam Date: 09/24/2024 12:48 Report Date: 09/24/2024 [...] Jr., D.O. 09/24/2024 12:49 PM Dictation Location: [place] [address] Electronically authenticated by: [id number] Y Date: 09/24/2024 12:49 Dictated By: Raz Norris M.D. Signed By: 09/24/24 1251 DD/ 1249 TD/TT: Corporate Wellness Coordinator:MM screening mammo BI Reviewed date:12/03/2024 06:24:03 PM Interpretation: Performing Lab: Notes/Report: Source Facility: [place] [address] Mammography Report Signed Patient: ALEXA DELGADO MR#: [id number] : 1940 Acct:[id number] Age/Sex: 84 / F ADM Date: 12/03/24 Loc: MAMMO Attending Dr: Galina Rogers M.D. Ordering Physician: Galina Rogers M.D. Results: Date of Service: 12/03/24 Follow Up: Procedure(s): MM screening mammo BI Accession Number(s): [id number] cc: Galina Rogers M.D. Patient Name: ALEXA DELGADO MR#: [id number] : 1940 Exam Date: 12/03/2024 Ordering Doctor: [...] Treatments None Family Cancers None LOCATION: [facility] BREAST COMPOSITION: There are scattered areas of [...] Signed By: 12/03/24 1535 DD/ 1534 TD/TT: Corporate Wellness Coordinator:XR HAND RT MIN 3V Reviewed date:08/02/2024 12:53:09 PM Interpretation: Performing Lab: Notes/Report: Source Facility: [place] [address] [place] [address] XRay Report Signed Patient: ALEXA DELGADO MR#: [id number] : 1940 Acct:[id number] Age/Sex: 84 / F ADM Date: 08/01/24 Loc: RAD Attending Dr: Epifanio Meza NP Ordering Physician: Epifanio Meza NP Date of Service: 08/01/24 Procedure(s): XR hand RT min 3V Accession Number(s): [id number] cc: Epifanio Meza NP; Galina Rogers M.D. [place] [address] Patient Name: ALEXA DELGADO MRN: [id number] date: 1940 Sex: F Assigned Patient Location: RAD Current Patient Location: RAD Accession/Order Number: [id number] Exam Date: 08/01/2024 20:16 Report Date: 08/01/2024 [...] Esquivel M.D. 08/01/2024 8:18 PM Dictation Location: [place] [address] Electronically authenticated by: [id number] Y Date: 08/01/2024 20:18 Dictated By: Aiden Esquivel D.O. Signed By: 08/01/242020 DD/ 17 TD/TT: Corporate Wellness Coordinator:Manual Differential Reviewed date:03/23/2024 09:20:24 AM Interpretation: Performing Lab: Notes/Report: [facility] ,Segmented Neutrophils % Opniut80.043.0-75.0Lymphocytes Percent Bztjul15.020.5- 60.0 %Monocytes Percent Manual8.01.7-12.0 %Eosinophils Percent Manual2.00.9-7.0 %Basophils Percent Manual0.00.2-2.0 %Segmented Neut Absolute Manual3.181.4-6.5 10 3/uLLymphocytes Absolute Manual0.681.20-3.80 10 3/uLMonocytes Absolute Manual 0.340.30-0.80 10 3/uLEosinophils Absolute Manual0.080.00-0.70 10 3/uLBasophils Abs Manual0.000.00-0.10 10 3/uLPerforming Lab:see noteML - [place] [facility] Reason For Referral Diagnosis 1 Weakness (R53.1) Referral Organization [facility] Referring Provider First Name Bang Referring Provider Last Name Jeremiasgavino Referring Provider Speciality Family Med icine Referred Provider [facility], Physical Therap y Referred Provider Specialty Physical The rapist General Notes Sydnee Ojeda 2024 09:14:46 AM >[facility] as well Referral Priority Routine Diagnosis 1 Urinary retention (R 33.9) Referral Organization [facility] Referring Provider First Name Bang Referring Provider Last Name Sue Referring Provider Speciality [facility] naomi Referred Provider Bryan Sherman Referred Provider [...] 1 TABLET BY MOUTH EVERY DAY; Duration: 90ActiveAllegra Allergy 180 MG1 tablet Swallow whole with water; do not take with fruit juices. Orally Once a day; Duration: 30 day(s)ActiveProlia 60 MG/MLas directed Subcutaneous ActivePantoprazole Sodium 40 MGTAKE 1 TABLET BY MOUTH EVERY DAY; Duration: 90 ActiveOndansetron 4 MG1 tablet on the tongue and allow to dissolve Orally qid; Duration: 5 days5ActiveNitroglycerin 0.4 MGas directed SublingualActive MultivitalActiveMetoprolol Succinate ER 50 MGTAKE 2 TABLETS EVERY MORNING AND 1 TABLET IN THEEVENING; Duration: 90ActiveCyclobenzaprine HCl 5 MGTAKE 1 TABLET BY MOUTH IN THE MORNING AND 2 TABLETS AT BEDTIME DIRECTED; Duration: 30Active Compression Stocking Thigh 20-30mmHg -4ActiveTylenol Arthritis Pain [...] Orally Every other day; Duration: 30 daysActiveSaline Len[place] 0.65 %as directed Nasally 4Active Immunizations Vaccine Route Administration Date Status Comme nts Flu, Fluad (21648) 65 yrs+, single-dose syringe (1069-4760) Unknown 10/25/2022 Administered Tdap (Boostrix)Rqwcyei9007/23/2024dministeredZOSTER (SHINGLES) VACCINE (HZV) Jwbgyns4509/22/2024dministeredZOSTER (SHINGLES) VACCINE (HZV)Mjoczri6211/22/2024 Administered Social History Tobacco Use: Social History Observation Description Date Details (start date - stop date) Never Smoker NA - NA Tobacco Use/Smoking Question Answer Notes Patient is a nonsmoker AUDIT-C (Standard) Question Answer Notes Did you have a drink containing alcohol in the p ast year? No Vxpjwj3VbldketuugbcsuGsnahkau Problems Problem Type SNOMED Code ICD Code Onset Dates Problem Status W/U Status Risk Notes Problem Age-related osteoporosis (818013 002) Age-related osteoporosis without current pathological fracture (M81.0) ActiveconfirmedProblemObesity (766040917)Obesity, unspecified (E66.9)Active confirmedProblemHyperlipidemia (26092074)Hyperlipidemia, unspecified (E78.5) ActiveconfirmedProblemSupraventricular tachycardia (6568476)Supraventricular tachycardia (I47.1)ActiveconfirmedProblemChronic respiratory failure (01722427) Chronic respiratory failure with hypoxia (J96.11)ActiveconfirmedProblem Arthropathies and related disorders (827054081)Other specific arthropathies, not elsewhere classified, unspecified hand (M12.849)ActiveconfirmedProblemLumbar spine scoliosis (283846169)Other forms of scoliosis, lumbar region (M41.86) ActiveconfirmedProblemLumbosacral spondylosis without myelopathy (10059656)Other spondylosis, lumbar region (M47.896)ActiveconfirmedProblemDegeneration of thoracic intervertebral disc (68458895)Other intervertebral disc degeneration, 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)ActiveconfirmedProblemDegeneration of lumbar intervertebral disc (44032289)Other intervertebral disc degeneration, lumbar region (M51.36)ActiveconfirmedProblemChest pain (06120262)Chest pain (R07.9) ActiveconfirmedProblemHypertension (69803171)Hypertension (I10)Activeconfirmed ProblemHypothyroidism (55565675)Hypothyroidism (E03.9)ActiveconfirmedProblem Coronary artery disease (17890147)CAD (coronary artery disease) (I25.10)Active confirmedProblemHypothyroid (86973022)Hypothyroid (E03.9)ActiveconfirmedProblem Arthritis (8051308)Arthritis (M19.90)ActiveconfirmedProblemSleep apnea (16125431)Sleep apnea (G47.30)ActiveconfirmedProblemObstructive sleep apnea syndrome (53095694)BETO (obstructive sleep apnea) (G47.33)ActiveconfirmedProblem Dementia (37143622)Dementia (F03.90)ActiveconfirmedProblemTransient ischemic attack (165441458)TIA (transient ischemic attack) (G45.9)ActiveconfirmedProblem Confusion (75817166)Confusion (R41.0)ActiveconfirmedProblemAllergic rhinitis (13031612)Allergic rhinitis (J30.9)ActiveconfirmedProblemLocalized, primary osteoarthritis of the pelvic region and thigh (016614475)Osteoarthritis of right hip (M16.11)ActiveconfirmedProblemStasis dermatitis (disorder) (87756404)Venous stasis dermatitis (I83.10)ActiveconfirmedProblemAcquired hypothyroidism (882441812)Acquired hypothyroidism (E03.9)ActiveconfirmedProblemSciatica (54690101)Sciatica (M54.30)ActiveconfirmedProblemArthritis of both knees (7944952923573128)Arthritis of both knees (M19.90)ActiveconfirmedProblemSeasonal allergic rhinitis (116674810)Seasonal allergic rhinitis (J30.2)Activeconfirmed ProblemMemory loss (47569714)Memory loss (R41.3)ActiveconfirmedProblemScoliosis (449952860)Scoliosis (M41.9)ActiveconfirmedProblemHyperthyroidism (88673974) Hyperthyroidism (E05.90)ActiveconfirmedProblemLaboratory test result abnormal (741583203)Abnormal laboratory test (R89.9)ActiveconfirmedProblemCervical spondylosis (915769830)Cervical spondylosis (M47.812)ActiveconfirmedProblem Degeneration of cervical intervertebral disc (07921280)Degenerative cervical disc (M50.30)ActiveconfirmedProblemFluid overload (66478466)Fluid overload (E87.70)ActiveconfirmedProblemDisorder of lumbar disc (208389979)Disc disorder of lumbar region (M51.9)ActiveconfirmedProblemEdema (789313756)Bilateral leg edema (R60.0)ActiveconfirmedProblemAllergic arthritis of the shoulder region (542517451)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)Activeconfirmed ProblemMonocytosis (03095594)Monocytosis (D72.821)ActiveconfirmedProblemOtitis externa (2758520)External otitis (H60.90)ActiveconfirmedProblemDisplacement of lumbar intervertebral disc without myelopathy (22958950)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)ActiveconfirmedProblemEssential hypertension (97072343)BP (high blood pressure) (I10)ActiveconfirmedProblemPure hypercholesterolemia (413496448)Pure hypercholesterolemia, unspecified (E78.00) ActiveconfirmedProblemThyromegaly (9802751)Thyromegaly (E01.0)Activeconfirmed ProblemDiastolic heart failure (078849758)CHF (congestive heart failure), NYHA class I, unspecified failure chronicity, diastolic (I50.30)Activeconfirmed ProblemLaceration of arm, left, subsequent encounter (S41.112D)Activeconfirmed ProblemMixed anxiety and depressive disorder (703164119)Anxiety and depression (F41.8)ActiveconfirmedProblemSecondary pulmonary hypertension (66096644)Other secondary pulmonary hypertension (I27.29)ActiveconfirmedProblemPoor short-term memory (891057227)Poor short-term memory (R41.3)ActiveconfirmedProblemBody mass index 30.00 to 34.99 (759395197720161)Body mass index [BMI] 31.0-31.9, adult (Z68.31)ActiveconfirmedProblemEasy bruising (515379717)Easy bruisability (R23.3) Activeconfirmed Vital Signs Heart Rate 96 /min 03/22/2024 Axrmajuluug83.8 degrees Fvrafvfrsm26/30/7915Frbseamt57 %03/22/2024lood pressure qycaetiek03 mm Hg08/06/20240102Wmtunt77 in08/06/2024lood pressure hddcbtuu687 mm Hg08/06/20247090Lmsnfv264 lbs08/06/2024BMI33.2 kg/m208/06/2024 Encounters Encounter Location Date Provider Diagnosis [facility] [address] [place] [address] 09/23/[address] [facility] [place] [address] 09/24/2024[facility]Ur[facility] [place] [address]/Doug [facility] [place] [address]Doug HoyConfusion R41.0 ; Hypothyroidism E03.9 and Hypertension I10[facility] [address] [place] [address]/Doug [facility] [place] [address]/31/2025Pamela CramerAbnormal laboratory test R89.9B[address] [place] [address]/01/2025Pamela CramerBu[address] [place] [address]/Doug HoyWeakness R53.1B[address] [place] [address] 05/28/2024[facility]BC[facility] [facility] [place] [facility] [place] [address]/Doug HoyAbnormal laboratory test R89.9 ; Confusion R41.0 and Bladder retention R33.9B[address] [place] [address]/Doug [facility]oyBCle[facility] [facility] [place] [facility] [place] [address]/Doug HoyEncount for Medicare annual wellness exam Z00.[address] [place] [address]/Doug HoyLaceration of arm, left, subsequent encounter S41.112DB[address] [place] [address]/Pamela CramerGastroenteritis K52.9B[address] [place] [address]/05/2024Doug HoyLaceration of arm, right, initial encounter S41.111A and H/O fall Z91.[address] [place] [id number]/10/2024Doug Hoy Laceration of arm, left, subsequent encounter S41.112D Assessments Encounter Date Diagnosis (ICD Code) Assessment Notes Treatment Notes Treatment Clinical Notes Section Notes 03/22/2024 Gastroenteritis (ICD-10 - K52.9) push fluids, [...] R89.9)09/20/2024onfusion (ICD-10 - R41.0)09/24/2024Urinary retention (ICD-10 - R33.9)02/20/2025onfusion (ICD-10 - R41.0)02/20/2025Hypothyroidism (ICD-10 - E03.9)02/20/2025Hypertension (ICD-10 - I10)09/20/2024ladder retention (ICD-10 - R33.9)07/25/2024Otherno signs infections Plan Of Treatment Pending Test Test Name Order Date Lexiscan Stress Nuclear Test 10/14/2023 UA (URINALYSIS, COMPLETE) 09/20/2024 UA (URINALYSIS, COMPLETE) 01/04/2024 CBC WITH DIFF (EXP 12/2024) 03/22/2024 Echocardiogram 09/23/2022 MRI Lumbar Spine w/o contrast 07/16/2022 Urinalysis Microscopic 02/20/2025 Urine Culture 01/04/2024 Sleep study - Diagnostic Polysonogram COMPREHENSIVE METABOLIC PROFILE WITH GFR 09/20/2024 CBC W/AUTO DIFF 09/20/2024 CBC W/AUTO DIFF 10/21/2023 CBC W/AUTO DIFF 08/18/2023 CBC W/AUTO DIFF 08/12/2023 CMP 03/23/2024 JASON Ankle Brachial Index (00032) 024 AMMONIA 08/18/2022 BLEEDING TIME 08/12/2023 CBC AUTO DIFF 08/18/2022 CBC AUTO DIFF 02/20/2025 CULTURE URINE 02/20/2025 CULTURE URINE 09/20/2024 FERRITIN 08/18/2023 IRON 08/18/2023 IRON 02/20/2025 MONO 08/14/2023 PERIPHERAL SMEAR 08/14/2023 PROF 14(COMP METB) 08/18/2022 PROF 14(COMP METB) 02/20/2025 PROTIME 08/12/2023 THYROID PROFILE WITH TSH 12/08/2022 THYROID PROFILE WITH TSH 04/04/2023 URINE MICROSCOPIC ONLY 01/04/2024 VITAMIN D 25 OH 02/20/2025 US KIDNEYS BLADDER 09/20/2024 VC VENOUS REFLUX CLEMENCIA LMT 10/31/2023 XR DEXA BONE DENSITY 03/30/2023 THYROID PANEL (T4/TSH/FREE T3) PROTIME-INR 10/21/2023 JASON Segmental Pressure Study of Lower Ex tremity 10/31/2023 CMP (COMP MET DOSHI) w/eGFR CKD-EPI 2024 Insurance Providers Payer Name Payer Address Payer Phone Subscriber Number Group Number Insured Name Patient Relationship to Insured Coverage Start Date Coverage End Date MEDICARE RAILROAD [address] [address] [place], [place] [id number] Sunny Delgadoelf - patient is the [id number] [address] [place] [id number], Robert Spouse - patient is the spouse of the [id number] 2013 Medications Administered Medication Instructions Date of Administration Dosage Notes Kenalog-40 mgKetorolac Bkgekrvmhltr93/25/202360 mgKetorolac Tromethamine mgOrphenadrine Txszyuo100 mg Medical (General) History Medical History History [...] Surgical History Surgery Date(Month/Year) TONSILLECTOMY,OVER 12 YRS 1957 APPENDECTOMY 1960 D&C (multiple) HYSTERECTOMY [id number] Left Gblpld0031fvcjfet reconstructionTumor Right BreastL4-L5 fusion w/discectomyRight Knee Replacementleft knee arthroscopy Cholecystectomycataract-lens implantsbladder surgeryTrigger Point Inj- Bilateral paralumbar and gluteal Dr. Meza08/31/2023left L4-5, L5-S1 transforaminal epidural steroid injectionLeft sacroiliac joint injectionBilateral Sacroiliac Joint Injection05/28/24Left L4-L5, L5-S1 transforaminal epidural steroid inj 5BunionectomyHospitalization History Reason Date(Month/Year) vertigo 07/2022
--- OUTSIDE RECORDS SUMMARY | 2025-02-20 14:52 | XMS_ITS | CCD ---
Author Organization [facility] Providers Care Bindery Machine Operator Name Role Phone PHYSICIAN, DEFAULT Unavailable Unavailable PHYSICIAN, DEFAULT Unavailable Unavailable Haley Bright DO, George Cajetan Unavailable Galina Palmer MD Primary Care Provider [phone] Lakshmipathy, Narendranath Unavailable [phone] Haley Bright DO, George Cajetan Unavailable ESTELA [...] ., DR MOJICA Primary Care Unavailable NOEMI HAKW Consulting Unavailable BECKWITH ., DR NIKO Austin [...] ., ROGE Attending Unavailable DORY, DR KRANTHI Gaoan Consulting Unavailable PRADEEPY ., DR MOJICA Primary [...] Unavailable HOY ., DR MOJICA Consulting Unavailable MULBERRY, DR HERMES Jean Baptiste Consulting Unavailable LATANYA [...] Unavailable Galina Palmer MD Primary Care Provider [phone] Galina Palmer MD Attending Provider Ishmael [...] of OnsetReaction(s) Facility (9 sources)Codeine; Translations: [CODEINE]Drug Qjikeyi14-78-8527Xbotxke, Unknown (qualifier value)[facility] (4 sources)Penicillins; Translations: [PENICILLINS]Drug Pynvptc22-23-9599Bjjfzlz [facility] (6 sources)pregabalin; Translations: [PREGABALIN]Drug Fbdmmzs67-67-9210 Intolerance, Unknown (qualifier value)[facility] Work Phone: (7 sources)Propoxyphene; Translations: [PROPOXYPHENE]Drug Avnlsrn34-69-8170Rfqr, Unknown, GI intolerance, Headache, Unknown (qualifier value)[facility] (4 sources)quiNINE; Translations: [QUINAMM]Drug Uvnsdak88-13-0352HQ Upset [facility] (5 sources)Decongest Multi-Action; Translations: [Decongest Multi-Action]Drug Qfshbqb29-41-7687Chmwm: See CommentsRegency Hospital Company (1 source)Acetaminophen / HYDROcodoneDrug AllergyThe [facility] (2 sources)CodeineDrug Lniznxy94-49-8560EanMer[facility] (3 sources)Fluconazole; Translations: [Diflucan][facility]rug AllergyThe [facility] (2 sources)PenicillinsDrug allergy (disorder)31-32-6903Lqb [facility] (3 sources)pregabalin; Translations: [Lyrica]Drug AllergyThe [facility] (4 sources)Propoxyphene; Translations: [Darvon]Drug [facility]ergyMer[facility] (1 source)quiNINEDrug AllergyThe [facility] (1 source)FluconazoleAllergy to -08-5943FltyffoAEDU Healthcare (1 source)PenicillinsPropensity to adverse vftyqqmyp61-88-3173QqigjixGUWU Healthcare (1 source)PregabalinPropensity to adverse ylxsapvkw32-00-3020DrbguiltlRSMD Healthcare (1 source)PseudoephedrineDrug Ebhqloq43-03-1717[facility] (5 sources)quiNINE; Translations: [quinine]Drug Yiqiafc74-26-1737PG intolerance, Headache, Dizziness, Unknown (qualifier value)[facility] (2 sources)Fluconazole; Translations: [fluconazole]Drug AllergyUnknown (qualifier value)[facility] (4 sources)Penicillin; Translations: [penicillin]Drug AllergyUnknown (qualifier value)[facility] Medications Current Medications MedicationDrug Class(es)DatesSig (Normalized)Sig (Original)Tylenol (6 sources)Start: 44-86-9307Ozukfmv Oral, Refills(s) 0 Start Date: 10/10/24 Status: Ordered Repeat number: 1acetaminophen (Tylenol) 500 MG tablet Take by mouth. ActiveComment on above:Take 500 mg by mouth twice daily.acetaminophen 325 mg / HYDROcodone bitartrate 5 mg oral tablet (6 sources)Opioid AgonistStart: 66-91-9882niea 1 tablet by mouth every six hours [place] 325 mg-5 mg oral tablet tab(s), Oral, q6hr, Refill(s) 0 Start Date: 10/10/24 Status: Ordered Repeat number: 1Start: 05-97-7327qwkf 1 tablet by mouth twice daily as neededHYDROcodone-acetaminophen ([place]) 5-325 MG tablet 1 tablet as needed Orally twice daily 04/29/2022 ActiveComment on above:Take 1 tablet by mouth twice daily as needed.Benita 24 Hour (2 sources)Start: 08-91-5621Rsiecae 24 Hour Refills(s) 0 Start Date: 10/10/24 Status: Ordered Repeat number: 1Aspir 81 (2 sources)Start: 17-97-0440hzpj 1 mg by mouth once dailyAspir 81 [...] mg by mouth once daily.Caltrate (4 sources)Start: 46-69-7435txym 1 mg by mouth once dailyCaltrate mg, Oral, Daily, Refills(s) 0 Start Date: 10/10/24 Status: Ordered Repeat number: 1Start: 09-25-7266Upegqvmb 600 + D Oral, BID, Refill(s) 0 Start Date: 10/10/24 Status: Ordered Repeat number: 1Calcium Carbonate / Vitamin D (1 source)Calcium Carbonate-Vitamin D (CALTRATE 600+D PO) Take by mouth twice a day. SdbcvhHgijwiz-Weojoyz-Rcrphs Edwar (SALONPAS TD) (1 source)Bdicimu-Wrydemc-Oazsmo Edwar (SALONPAS TD) Place on the skin Active citalopram 10 mg oral tablet (6 sources)Serotonin Reuptake InhibitorStart: 92-59-3164qavq 1 mg by mouth once dailycitalopram 10 mg Tab mg tab(s), Oral, Daily, Refills(s) 0 Start Date: 10/10/24 Status: Ordered Repeat number: 1Start: 11-11-5052rhdh 1 tablet by mouth once dailycitalopram hydrobromide (CELEXA) 10 mg tablet Take 10 mg by mouth once daily. Treat Depression 0 03/01/2022 ActiveComment on above:Take 10 mg by mouth once daily. Treat Depressioncyclobenzaprine hydrochloride 5 mg oral tablet (6 sources)Muscle RelaxantStart: 35-03-4011ekzz 1 mg by mouth three times daily [...] release oral tablet (6 sources)Nonsteroidal Anti-inflammatory DrugStart: 41-77-1556sjzj 1 mg by mouth twice dailydiclofenac sodium 75 mg Oral EC Tab mg tab(s), Oral, BID, Refills(s) 0 Start Date: 10/10/24 Status: Ordered Repeat number: 1Start: 92-05-1676iiby 1 tablet by mouth twice daily for paindiclofenac, EC, (VOLTAREN) 75 mg EC tablet Take 75 mg by mouth twice daily. For Arthritis pain 0 03/24/2022 Activediclofenac (Voltaren) 75 MG EC tablet every 12 (twelve) hours. Active Comment on above:Take 75 mg by mouth twice daily. For Arthritis painferrous sulfate 325 mg delayed release oral tablet (3 sources)Start: 96-00-6556aaum 1 mg by mouth once dailyferrous sulfate 325 mg oral enteric coated tablet mg tab(s), Oral, Daily, Refills(s) 0 Start Date: Status: Ordered Repeat number: 1Start: 04-64-9331jryr 1 tablet by mouth in the morningferrous sulfate 325 (65 Fe) MG tablet Take 1 tablet by mouth in the morning and 1 tablet before bedtime. 09/16/2023 Activefexofenadine hydrochloride 180 mg oral tablet (5 sources)Histamine-1 Receptor Antagonist End: 06-68-8009xrxdjlcffnyt ([facility]) 180 MG tablet [facility] 12/06/2023 Discontinued (Duplicate order)Comment on above:Take 180 mg by mouth once daily. flax oral capsule (2 sources)Start: 32-33-8066ncyk oral capsule Refill(s) 0 Start Date: 10/10/24 Status: Ordered Repeat number: 1gabapentin 100 mg oral capsule (2 sources)Anti-epileptic AgentStart: 11-39-7149qhph 1 mg by mouth three times dailygabapentin 100 mg Cap mg cap(s), Oral, TID, Refills(s) 0 Start Date: 10/10/24 Status: Ordered Repeatnumber: 1Ewumgdhcvks-Qwetxewirra-LFG (Triple Flex) 500-400-125 MG tablet (1 source)take 1 tablet by mouth twice daily at mealtime Jgtfmtjpumd-Uawlosarrrj-NSV (Triple Flex) 500-400-125 MG tablet 1 tablet with meals Orally twice daily for 30 days Hphdlz51 hr isosorbide mononitrate 30 mg extended release oral tablet (6 sources)Nitrate VasodilatorStart: 18-00-9220muez 1 mg by mouth once daily in the morningisosorbide mononitrate 30 mg ER Tab mg tab(s), Oral, qAM, Refills(s) 0 Start Date: 10/10/24 Status: Ordered Repeat number: 1Start: 91-62-0066lezs 1 tablet by mouth in the morning, then take 1 tablet by mouth every twenty-four hoursisosorbide mononitrate ER (Imdur) 30 MG 24 hr tablet Take 30 mg by mouth in the morning. 03/21/2022ctiveComment on above:Take 30 mg by mouth once daily. 1 tablet daily in the AM on an empty stomach Treat for Anginalevothyroxine sodium 0.075 mg oral tablet (6 sources)l-ThyroxineStart: 88-19-1535konh 1 tablet by mouth once daily levothyroxine 75 mcg (0.075 mg) Tab mcg tab(s), Oral, Daily, Refills(s) 0 Start Date: 10/10/24 Status: Ordered Repeat number: 1Start: 03-62-2304oaszpryekdnvp (Synthroid, Levoxyl) 75 MCG tablet 1 (one) time each day at the same time. 03/18/2022ctiveComment on above:Take 75 mcg by mouth once daily. Patient takes 1 tablet in the AMlinseed oil 1000 mg oral capsule (4 sources)Flaxseed, Linseed, (Flax Seed Oil) 1000 MG capsule as directed Orally ActiveComment on above:Take 1,000 mg by mouth once daily.liothyronine sodium 0.025 mg oral tablet (6 sources)l-TriiodothyronineStart: 20-82-3266uhgm 1 tablet by mouth once daily liothyronine [...] zinc Activemagnesium amino acid chelate (5 sources)Start: 20-81-3920bqxjjyxif amino acids chelate Oral, Refills(s) 0 Start Date: 10/10/24 Status: Ordered Repeat number:1take 250 mg by mouth once daily at bedtimeMAGNESIUM AMINO ACID CHELATE ORAL Take 250 mg by mouth once daily. At bedtime 0 ActiveComment on above:Take 250 mg by mouth once daily. At bedtimeMelatonin (6 sources)Start: 84-80-7231Uckgyzjcr Once a day (at bedtime), Refills(s) 0 [...] extended release oral tablet (6 sources)beta-Adrenergic BlockerStart: 94-37-1115amfr 1 mg by mouth once daily metoprolol succinate 50 mg ER Tab mg tab(s), Oral, Daily, Refills(s) 0 Start Date: 10/10/24 Status: Ordered Repeat number: 1Start: 55-16-4815cknk 1 tablet by mouth twice dailymetoprolol succinate ER (TOPROL XL) 50 mg 24 hr tablet Take 50 mg by mouth twice daily. 0 03/24/2022 ActiveComment on above:Take 50 mg by mouth twice daily.24 hr mirabegron 25 mg extended release oral tablet (1 source)beta3-Adrenergic AgonistStart: 11-14-2024 End: 13-50-5953hmoc 1 tablet by mouth once dailyMyrbetriq 25 mg oral tablet, extended release 25 mg = 1 tab(s), Oral, Daily, X 30 day(s), # 30 tab(s), Refills(s) 3, Pharmacy: [facility]/pharmacy #[id number], 150, cm, 11/14/24 15:17:00 EDT, Height/Length Dosing, 79.9, kg, 11/14/24 15:17:00 EDT, Weight Dosing Start Date: 11/14/24 Stop Date: 03/14/25 Status: Ordered Quantity: 30.0 Unit: tab(s) Repeat number: 4 Indications: Overactive bladder;Multi Vitamin+ (2 sources)Start: 34-24-9318Zmfnc Vitamin+ Refill(s) 0 Start Date: 10/10/24 Status: Ordered Repeat number: 1Multiple Vitamin (multivitamin) tablet (1 source)take 1 tablet by mouth in the morningMultiple Vitamin (multivitamin) tablet Take 1 tablet by mouth in the morning. ActiveNitroglycerin (6 sources)Nitrate VasodilatorStart: 76-59-5362wlwjptnzhelob Refills(s) 0 Start Date: 10/10/24 Status: Ordered [...] 3x daily As needed for chest pain [place]-3 1000 mg oral capsule (2 sources)Start: 03-89-8326Ivyap-3 1000 mg oral capsule mg cap(s), Oral, Refills(s) 0 Start Date: 10/10/24 Status: Ordered Repeat number: 1Osteo Bi-Flex Triple Strength (2 sources)Start: 41-88-6163Vhdgz Bi-Flex Triple Strength Refill(s) 0 Start Date: 10/10/24 Status: Ordered Repeat number: 1oxybutynin chloride 5 mg oral tablet (2 sources)Cholinergic Muscarinic AntagonistStart: 46-39-8811cgjx 1 tablet by mouth once dailyoxybutynin 5 mg Tab 5 mg = 1 tab(s), Oral, Daily, # 30 tab(s), Refills(s) 0, Pharmacy: [facility]/pharmacy#[id number], 150, cm, 10/10/24 10:18:00 EDT, Height/Length Dosing, 80, kg, 10/10/24 10:18:00 EDT, Weight Dosing Start Date: 10/10/24 Status: Ordered Quantity: 30.0 Unit: tab(s) Repeat number: 1 Indications:Overactive bladder;pantoprazole 40 mg delayed release oral tablet (3 sources)Proton Pump InhibitorStart: 16-49-0555dsym 1 mg by mouth once daily Pantoprazole [address] Tab mg tab(s), Oral, Daily, Refills(s) 0 Start Date: 10/10/24 Status: Ordered Repeat number: 1Start: 05-26-7539dory 1 tablet by mouth once dailypantoprazole (ProtoNix) 40 MG EC tablet Take 40 mg by mouth Daily 10/13/2023 ActivePotassium Chloride (2 sources)Start: 49-46-2575hhzddoizi chloride Refills(s) 0 Start Date: 10/10/24 Status: Ordered Repeat number: 1Salonpas Pain Patch (2 sources)Start: 44-69-5912Pakwuquo Pain Patch Refill(s) 0 Start Date: 10/10/24 [...] ActiveComment on above:Take by mouth twice daily.capsaicin 0.86298 mg/mg medicated patch (3 sources)Capsaicin (SALONPAS-HOT) 0.025 [...] DateEpisodic/ChronicAnxiety disorders (2 sources)Mixed anxiety and depressive wsvxmuyk33-42-3845DtybzgkFprxcdshz and vision defects (1 source)Unspecified visual loss; Translations: [UNSPECIFIED VISUAL LOSS]Onset: 86-83-0037BkjkprdInzbihi dysrhythmias (2 sources)Supraventricular zizjuoqryyh33-01-2524ZwwwkowUbxaqslglq heart failure; nonhypertensive (5 sources)Unspecified diastolic (congestive) heart failure; Translations: [Congestive heart failure]Onset: 735785-03-7339EvdgbxfEgrpybog atherosclerosis and other heart disease (4 sources)Coronary qyzeridoyxmxuybo97-09-9797CsoecrhBmjsaxlirb and other anemia (2 sources)Anemia, unspecified; Translations: [ANEMIA UNSPECIFIED]Onset: 92-45-0762FjkuorhnKavtihti, dementia, and amnestic and other cognitive disorders (4 sources)Fodzsvhx87-45-9009QbizncfXisjbadn of white blood cells (4 sources)Opyqsdlbuje33-36-9025OzobmbmVgteaufbv of lipid metabolism (7 sources)Hyperlipidemia, unspecified; Translations: [Hyperlipidemia]Onset: 924688-35-5640CryfuxhVvhchafnn hypertension (8 sources)Essential (primary) hypertension; Translations: [Essential hypertension]Onset: 669979-00-4664AumnakjUilcq and electrolyte disorders (10 sources)Dehydration; Translations: [Hypo-osmolality and hyponatremia]Onset: 10-23-5591XprosjurXvpbentattdog symptoms and ill-defined conditions (4 sources)Stress incontinence (female) (male); Translations: [Female stress incontinence]Onset: 25-94-1363BvlgvdxZvmnttszisnte symptoms and ill-defined conditions (12 sources)Dysuria; Translations: [Other abnormal findings in urine]Onset: 46-00-0527XxtfibkiMoxpgujwozlv with complications and secondary hypertension (4 sources)Hypertensive heart disease with heart failure; Translations: [HTN HEART DISEASE W/HEART FAIL]Onset: 61-74-0473DqvdqttIbliikehyqza breast conditions (1 source)Fibrocystic disease of breast; Translations: [Diffuse cystic mastopathy of unspecified breast]Onset: 184500-94-5194CvbfymlSmqejdjjxru chest pain (3 sources)Chest pain, unspecified; Translations: [Chest pain]Onset: 11-13-2021 03-99-0201FwnrfrobPugklfwdemw deficiencies (1 source)Vitamin D deficiency, unspecified; Translations: [VITAMIN D DEFICIENCY UNSPECIFIED]Onset: 89-88-3918JymdqhnKsvq wounds of extremities (2 sources)Laceration of upper xwy34-15-2338QrgwdhrwPayvrxrgijzvkm (8 sources)Bilateral primary osteoarthritis of hip; Translations: [Unspecified osteoarthritis, unspecified site]Onset: 083408-53-2937AghvpbkKrrzjfjirhgx (2 sources)Senile cdbtzvipiwqm06-03-0482TwtiaxaAhwpv acquired deformities (4 sources)Scoliosis of lumbar spine; Translations: [Scoliosis, unspecified] Onset: 26-49-9938QoaonneUvfpg acquired deformities (5 sources)Scoliosis deformity of spine; Translations: [Scoliosis, unspecified] Onset: 922723-26-4566VlakasmMiyeg acquired deformities (1 source)Scoliosis, unspecified; Translations: [SCOLIOSIS UNSPECIFIED]Onset: 27-42-8663RcmedcwSxzcc acquired deformities (1 source)Lumbar spondylolisthesis; Translations: [Spondylolisthesis, lumbar region]EpisodicOther bone disease and musculoskeletal deformities (1 source)Idiopathic scoliosis of lumbar spine; Translations: [Other idiopathic scoliosis, lumbar region]ChronicOther circulatory disease (2 sources)Easy nysjxaqm06-24-9249PmlcvoliKvszz connective tissue disease (1 source)Presence of right artificial knee joint; Translations: [PRESENCE RT ARTIFICIAL KNEE JOINT]Onset: 30-55-0595MyikoglNrpkt connective tissue disease (5 sources)Other muscle spasm; Translations: [OTHER MUSCLE SPASM]Onset: 35-51-0645NolsjyjwCormk diseases of bladder and urethra (2 sources)Detrusor overactivity; Translations: [Overactive bladder]Onset: 59-70-5106IgwtyckXfppi diseases of bladder and urethra (2 sources)Overactive waxofgk12-50-3165WarierxHvure diseases of veins and lymphatics (2 sources)Stasis rnuuohqevk67-83-7818VekcchmrGjofq ear and sense organ disorders (2 sources)Otitis qzdzovy63-19-7402NbsoyjvFhbvi nervous system disorders (4 sources)Other specified mononeuropathies of right lower limb; Translations: [OTH SPEC MONONEUROPATH RT LOW LIMB]Onset: 65-42-9022AghpozyOxtqo nervous system disorders (4 sources)Other specified mononeuropathies; Translations: [OTHER SPECIFIED MONONEUROPATHIES]Onset: 73-40-3036LtoihrfMjpkl nervous system disorders (1 source)Other chronic pain; Translations: [OTHER CHRONIC PAIN]Onset: 06-49-2337TvnjgjdHvgqr non-traumatic joint disorders (2 sources)Allergic arthritis of the shoulder nzvpxo34-95-6534JmxeeedVuzzn non- traumatic joint disorders (2 sources)Bilateral arthritis of ehkuo70-89-1298AmpebkoHxocw non-traumatic joint disorders (5 sources)Pain in right hip; Translations: [PAIN IN RIGHT HIP]Onset: 05-13-2022 EpisodicOther nutritional; endocrine; and metabolic disorders (4 sources)Obese class I; Translations: [Obesity, unspecified]Onset: 09-21-2022 39-92-7461AhcehtkGeris nutritional; endocrine; and metabolic disorders (2 sources)Body mass index 30+ - exvsuag84-95-1238SovggjmWbuqj nutritional; endocrine; and metabolic disorders (2 sources)Jwvueea39-56-0575KguhxquUbfyn screening for suspected conditions (not mental disorders or infectious disease) (6 sources)Encounter for screening mammogram for malignant neoplasm of breast; Translations: [Patient encounter status]Onset: 79-64-4587VtrskisvOeric upper respiratory disease (2 sources)Allergic ohsghhvn43-85-6387GbobamvXjbae upper respiratory disease (2 sources)Seasonal allergic edpkwvdi71-39-5273IylwprzFyaoowwuk heart disease (2 sources)Secondary pulmonary aiintlqynfgh76-30-1603RxcamooNtayqdcb codes; unclassified (2 sources)Obstructive sleep apnea kmkvuwya41-57-9259HtbyxgoEqpwokey codes; unclassified (2 sources)Sleep azriv40-74-3379TxysaviPadaacpx codes; unclassified (2 sources)Qhvpfuo32-44-4129IaosgyqjTvmzvbbo codes; unclassified (2 sources)Clouded pibxvnkswmwhk90-81-8928UpqcejuuKpqrxwqs codes; unclassified (2 sources)Mvfxy30-30-8696FvbseimiFjoaqrdp codes; unclassified (4 sources)Poor short-term quqwvz99-00-5573WzqaubpaSdhajakytji failure; insufficiency; arrest (adult) (2 sources)Chronic respiratory ootsxkf44-06-2240GvqeaacRlsvjtforwx; intervertebral disc disorders; other back problems (20 sources)Lumbar spondylosis; Translations: [Spondylosis without myelopathy or radiculopathy, lumbar region]Onset: 59-35-4357AdldqucXhtqnirvvra; intervertebral disc disorders; other back problems (18 sources)Chronic low back pain; Translations: [Lumbago with sciatica, right side]Onset: 26-93-2759QhobnyyyHvzdhml disorders (13 sources)Hypothyroidism, unspecified; Translations: [Thyrotoxicosis, unspecified without thyrotoxic crisis or storm]Onset: ChronicTransient cerebral ischemia (2 sources)Transient cerebral cguduehh51-46-0649IlnapvyOrbhiopvfham (4 sources)LOW BACK PAIN, UNSPECIFIED; Translations: [LOW BACK PAIN, UNSPECIFIED]Onset: 76-85-0103Vkuoqzodphiv (1 source)PERSONAL HISTORY OF COVID-19; Translations: [PERSONAL HISTORY OF COVID-19]Onset: 66-77-4932Aawfcpmqdhoq (1 source)CONTACT W/AND (SUSP) EXPOS COVID-19; Translations: [CONTACT W/AND (SUSP) EXPOS COVID-19]Onset: 38-58-1826Omlljjwbgguf (2 sources)Arthropathies and related disorders (navigational concept)10-10-2024 Unclassified (2 sources)Asymptomatic microscopic -97-2007Mmurk infection (1 source)COVID-19; Translations: [COVID-19]Onset: 11-13-2021 Past or Other Problems Problem ClassificationProblemDateDocumented DateEpisodic/ChronicConditions associated with dizziness or vertigo (4 sources)Dizziness and giddiness; Translations: [DIZZINESS AND GIDDINESS] Onset: 86-49-2505QieuriwfFqgxaarz mellitus without complication (1 source)Other abnormal glucose; Translations: [OTHER ABNORMAL GLUCOSE]Onset: 74-90-6758HoharnfzCwqikpj and fatigue (4 sources)Weakness; Translations: [WEAKNESS]Onset: 79-81-8666NyspkqqpJldlgv and vomiting (1 source)Nausea with vomiting, unspecified; Translations: [NAUSEA WITH VOMITING UNSPECIFIED]Onset: 43-42-4560YwunoaalAonob aftercare (1 source)prison (current) use of aspirin; Translations: [CUSTODIAL CURRENT USE OF ASPIRIN]Onset: 30-53-1467TwkexbesIxwgi aftercare (1 source)Other detention (current) drug therapy; Translations: [OTH CUSTODIAL CURRENT DRUG THERAPY]Onset: 60-95-1823KwiwlyqxEopeh bone disease and musculoskeletal deformities (1 source)Other specified disorders of bone density and structure, unspecified site; Translations: [OTH D/O BONE DEN STRUCT UNS SITE]Onset: 81-11-5156Mrejquzo Other circulatory disease (1 source)Personal history of transient ischemic attack (TIA), and cerebral infarction without residual deficits; Translations: [PERS HX TIA AND CI NO RESID DEFICIT]Onset: 26-59-8183TnsulaecNxomy connective tissue disease (1 source)Sarcopenia; Translations: [SARCOPENIA]Onset: 72-16-2884GuoiytceZblzr gastrointestinal disorders (1 source)Diarrhea, unspecified; Translations: [DIARRHEA UNSPECIFIED]Onset: 51-87-7925FhktreunNpqmv lower respiratory disease (1 source)Chronic cough; Translations: [CHRONIC COUGH]Onset: 87-04-0650Ytisahri Other non-traumatic joint disorders (5 sources)Pain in right knee; Translations: [PAIN IN RIGHT KNEE]Onset: 95-18-4126AxjhmzgmRwkblcoc codes; unclassified (1 source)Acquired absence of both cervix and uterus; Translations: [ACQUIRED ABSENCE BOTH CERVIX AND UTERUS]Onset: 89-63-8053QxrcarsjZxkmzuoc codes; unclassified (1 source)Acquired absence of other specified parts of digestive tract; Translations: [ACQ ABSENCE OTH PART DIGESTV TRACT]Onset: 42-50-3511Fdibtvzv Unclassified (1 source)LOW BACK PAIN, UNSPECIFIED; Translations: [LOW BACK PAIN, UNSPECIFIED] Onset: 04-06-2022 Results Test NameValueInterpretationReference RangeFacilityUrology Office/Clinic Noteon 53-53-7927Ceqocdt Office/Clinic NoteUrology Office/Clinic Note Chief Complaint Pt [...] day(s), # 30 tab(s), Refills(s) 3, Pharmacy: [facility]/pharmacy #[id number], 150, cm, 11/14/24 15:17:00 EDT, Height/Length Dosing, 79.9, kg, 11/14/24 15:17:00 EDT,Weight Dosing 2. Incomplete bladder emptying (R33.9: Retention of urine, unspecified) PVR (cc): 10/10/24 - 146 11/14/24 - PVR improved. Pt reassured she is emptying better. -Cont sx monitoring Ordered: 68018 Measure Post Void residual urine and/or bladder [...] Urnls Dip Stick Auto w/o Microscopy POC 42868 3. NILESH (stress urinary incontinence, female) (N39.3: [...] Cervical spondylosis Chest pain (more content not included)...NormalK[facility] Comment on above:Result Comment: Electronically Signed By: Jacinta Long PA-C\.br\Date and Time Signed: 11/14/24 16:19 EDTUrinalysis with Microon 61-02-5561Jhmll (U)ColorlessAbnormalYOhioHealth Dublin Methodist HospitalComment on above:Result Comment: Microscopic readings are only performed on those samples that meet specific criteria set forth by [facility]. Performed By: #### [id number] #### [facility] [address], [place] [address]Tqurfrg (U) [Mass/Vol]NegativeNormalNegativeKettering Health SpringfieldComment on above:Performed By: #### [id number] #### [facility] [address], [place] [address]Zeusskk Ql (U)NegativeNormalNegOhioHealth Grady Memorial Hospital Comment on above:Performed By: #### [id number] #### [facility] [address], [place] [address]VG BloodTraceAbnormalNegativeKettering Health SpringfieldComment on above:Performed By: #### [id number] #### [facility] [address], [place] [address]AP ClarityClearNormalClearKettering Health SpringfieldComment on above:Performed By: #### [id number] #### [facility] [address], [place] [address]KJ Leuk EstNegativeNormalFlower Hospital Comment on above:Performed By: #### [id number] #### [facility] [address], [place] [address]EB NitriteNegativeNoPeoples Hospital Comment on above:Performed By: #### [id number] #### [facility] [address], [place] [address]EW pH6.0Invalid Interpretation Code5.0-9.0[facility] SpringfieldComment on above:Performed By: #### [id number] #### [facility] [address], [place] [address]WV ProteinNegativeNormalNegOhioHealth Grady Memorial Hospital Comment on above:Performed By: #### [id number] #### [facility] [address], [place] [address]FZ Spec Grav1.006Invalid Interpretation Code1.005-1.030Kettering Health SpringfieldComment on above:Performed By: #### [id number] #### [place] [facility] [address], [place] [address]SF UrobilinogenNegativeNormalNegOhioHealth Grady Memorial HospitalComment on above:Performed By: #### [id number] #### [place] [facility] [address], [place] [address]Vnlnasabixtd (U) [Mass/Vol]NegativeNormalNegativeKettering Health SpringfieldComment on above:Performed By: #### [id number] #### [facility] [address], [place] [address]ZJ Spec DescClean CatchNormAvita Health SystemComment on above:Performed By: #### [id number] #### [facility] [address], [place] [address]Tddfg Cultureon 54-68-2399Dqlvhuew identified Cx Nom (U)No Growth 2 Days PERFORMED BY: [facility] [address] [id number] PATHOLOGIST ENVIRONMENTAL GEOLOGIST BRAULIO CARDOZO M.D.[facility] ER Physician GroupComment on above: Performed By: #### CUU #### [facility] [address] [id number] USACNOVon [id number] Visit (NSADHC) ALEXA DELGADO ([id number]) 1940 F Date Time Provider Department 09/21/22 1:00 PM [facility] During your visit today, we recorded [...] Physical Function Percentile 2 (more content not included)...NormalGrand Lake Joint Township District Memorial HospitalXR LSPINE 2_3 VIEWSon [id number] LSPINE 2_3 VIEWSEXAMINATION: XR LSPINE 2_3 VIEWS [...] Electronically authenticated by: HERMES SUAREZ Date: 2022-07-16 11:34[facility] [id number] Visit (SPMESH) ALEXA DELGADO ([id number]) 1940 F Date Time Provider Department 05/14/22 2:30 PM [facility] During your visit today, we recorded the following information about you: Pulse Blood pressure Weight Height 72/minute 158/87 76.4 kg 1.524 m Marty Dozier DO 05/15/2022 10:02 PM Signed [facility] - [facility] [...] Ratio: R>L low back Current Treatment: Medications [place] 5-325 mg BID - helps Diclofenac 75 [...] but still has pain -01/28/22 Noemi Sequeira EDITOR MAP: BL Lumbar erector spinae TPI (0.125% Marcaine, [...] ongoing as of 04/17/21 -03/08/21 Noemi Sequeira EDITOR MAP: Left rhomboid TPI (0.125% Marcaine, 40 mg [...] today. She has an evaluation at the [facility] tomorrow at the [facility]. RECOMMENDATIONS: We will see the pat (more content not included)...Normal [facility] ClevelandCULTURE URINEon [id number] URINECulture Observations: LIGHT GROWTH OF MIXED GENITAL ALANIS. NO POTENTIAL PATHOGENS SEEN.NormalThe [facility]c Medical CenterComment on above:Performed By: #### URCX ####[facility] Fyggwwgvou[address] [place], [place] [address]Dr. Yilan ChangUA RANDOM W/MICROSCOPICon [id number] SEENNormalNONE SEENMercy Health Springfield Regional Medical Center Comment on above:Performed By: #### UAMIC ####[facility] Lubggellln05[address] [place], [place] [address]Dr. Yilan ChangBilirubin Ql (U)Negative NormalNEGATIVEMercy Health Springfield Regional Medical CenterComment on above:Performed By: #### UAMIC ####[facility] Rlwfpbjtyu160[address] [place], [place] [address]Dr. Yilan ChangCASTNONE SEENNormalNONE SEENMercy Health Springfield Regional Medical CenterComment on above: Performed By: #### UAMIC ####[facility] Decmlpdlju645[address] [place], [place] [address]Dr. Yilan ChangClarity (U)CLEARNormalCLEARMercy Health Springfield Regional Medical CenterComment on above:Performed By: #### UAMIC ####[facility] Oropmhsxbl9[address] [place], [place] [address]Dr. Yilan ChangColor (U) YELLOWNormalYELLOWFort Hamilton Hospital HospitalComment on above:Performed By: #### UAMIC ####[facility] Zsrjqycqnf5035[address] [place], [place] [address]Dr. Yilan ChangCrystals LM Nom (Urine sed)NONE SEENNormalNONE SEENMercy Health Springfield Regional Medical CenterComment on above:Performed By: #### UAMIC ####[facility] Zpjzdkormf8437[address] [place], [place] [address]Dr. Yilan ChangEpithelial cells LM Ql (Urine sed)RARENormalNONE SEEN /RAREMercy Health Springfield Regional Medical CenterComment on above:Performed By: #### UAMIC ####[facility] Wstvpuyugj5512[address] [place], [place] [address]Dr. Yilan ChangGlucose Ql (U)NegativeNormalNEGATIVEMercy Health Springfield Regional Medical CenterComment on above:Performed By: #### UAMIC ####[facility] Zxlrrulxot2575[address] [place], [place] [address]Dr. Benitalan Abdul Hemoglobin Ql (U)MODERATEAbnormalNEGATIVEThe Lake Minchumina HospitalComment on above: Performed By: #### UAMIC ####[facility] Svqujqcwlu9[address] [place], [place] [address]Dr. Yilan ChangKetones Ql (U)TRACEAbnormalNEGATIVEThe [facility]chumina HospitalComment on above:Performed By: #### UAMIC ####[facility] Ajniouztaw805[address] [place], [place] [address]Dr. Yilan ChangLEUKOCYTES TRACEAbnormalNEGATIVEThe [facility] Minchumina HospitalComment on above:Performed By: #### UAMIC ####[facility] Ojvirmegsb23[address] [place], [place] [address]Dr. Yilan ChangMUCOUSNONE SEENNormalNONE SEENFort Hamilton Hospital HospitalComment on above:Performed By: #### UAMIC ####[facility] Njnfnxsshs412[address] [place], [place] [address]Dr. Grace ChangNitrite Ql (U)NegativeNormalNEGATIVE The [facility] HospitalComment on above:Performed By: #### UAMIC ####[facility] Wghuwzviie413[address] [place], [place] [address]Dr. Yilee ann ChangpH (U)5.0 [pH]Normal5-9The [facility] HospitalComment on above:Performed By: #### UAMIC ####[facility] Pdbkcgrvxt0510[address] [place], [place] [address]Dr. Grace JqquzQMC9-9Zhraso8-8Ktn [facility] CenterComment on above: Performed By: #### UAMIC ####[facility] Uyrminwjkd110[address] [place], [place] [address]Dr. Yilan FrankoSPEC GRAVITY1.125Jennau5.005-<=1.025The [facility] HospitalComment on above:Performed By: #### UAMIC ####[facility] Xzbdfojdxm718[address] [place], [place] [address]Dr. Yilan ChangUA PROTEINNegativeNormalNEGATIVE/ TRACEThe Lake Minchumina HospitalComment on above: Performed By: #### UAMIC ####[facility] Rldcazzdal5044[address] [place], [place] [address]Dr. Benitalan ChangUrobilinogen Qn (U)0.2 {Ashley'U}/dL Normal0.2 - 1.0The [facility] Medical CenterComment on above:Performed By: #### UAMIC ####[facility] [address] [address]Dr. Yilan ChangWBC0-2AbnormalNONE SEENThe [facility] Medical CenterComment on above: Performed By: #### UAMIC ####[facility] Bagxhvhedy[address] [place], [place] [address]Dr. Benitalan ChangCBC AUTO DIFFon 08-39-3817SBOL #0.0 103/ulNormal0.0-0.1The [facility] Medical CenterComselect specialty hospital on above:Performed By: #### CBC ####[facility] Whslqjykns[address] [place], [place] [address]Dr. Benitalee ann ChangBasophils/100 WBC (Bld)0.4 %Normal0.2-2.0The [facility] on above:Performed By: #### CBC ####[facility] Lwypitrdup187[address] [place], [place] [address]Dr.Yilan ChangEO #0.1 103/ulNormal0.0-0.7The [facility] CenterComselect specialty hospital on above:Performed By: #### CBC ####[facility] Cdkidganls5360[address] [place], [place] [address]Dr.Benitalee ann ChangEosinophils/100 WBC (Bld)1.3 %Normal0.9-7.0The [facility] Health Centerment on above:Performed By: #### CBC ####[facility] Ehsejewcfg2567[address] [place], [place] [address]Dr.Benitalan ChangErythrocyte distribution width (RBC) [Ratio]13.7 %Normal 11.0-15.0The [facility] on above:Performed By: #### CBC ####[facility] Pttfchccbn628[address] [place], [place] [address]Dr. Benitalee ann ChangHematocrit (Bld) [Volume fraction]37.2 %Hvsjck30.0-48.0The [facility] Medical CenterComment on above:Performed By: #### CBC ####[facility] [address]agkz[address] [address]Dr.Grace ChangHemoglobin (Bld) [Mass/Vol]12.4 g/hPGxlsjv72.0-16.0The [facility] CenterComment on above: Performed By: #### CBC ####[facility] Xcbaogojeh637[address] [place], [place] [address]Dr.Benitalee ann ChangIG #0.02 10e3/ulNormal0.00-0.03The [facility] Medical CenterComment on above:Performed By: #### CBC ####[facility] Grqjxejuwj6099[address] [place], [place] [address]Dr.Benitalee ann AbdulIG %0.4 %Normal 0.0-0.5The [facility] Medical CenterComment on above:Performed By: #### CBC ####[facility] Dtvmqeisbl908[address] [place], [place] [address]Dr.Grace AbdulLYMPH #0.8 103/ulCritically low1.2-3.8The [facility] Medical CenterComment on above:Performed By: #### CBC ####[facility] Bwiykixlhi508[address] [place], [place] [address]Dr.Benitalee ann AbdulLymphocytes/100 WBC (Bld)13.9 %Critically low20.5-60.0 The [facility] Medical CenterComment on above:Performed By: #### CBC ####[facility] Tvvchbxhbz674[address] [place], [place] [address]Dr.Grace AbdulMANUAL DIFF REQNONormalThe [facility] Medical CenterComment on above:Performed By: #### CBC ####[facility] Esosgmcsim628[address] [place], [place] [address]Dr. Grace AbdulMCH (RBC) [Entitic mass]30.5 kiAxbfzb80.7-34.0The [facility] Comment on above:Performed By: #### CBC ####[facility] Oxnmznhgoe9455[address] [place], [place] [address]Dr.Grace AbdulMCHC (RBC) [Mass/Vol]33.3 g/dL Cngsiv11.9-35.2The [facility] HospitalComment on above:Performed By: #### CBC ####[facility] [address]nqbla[address] [address]Dr. Grace AbdulMCV (RBC) [Entitic vol]91.4 rOHsklts35.0-99.0The [facility] Comment on above:Performed By: #### CBC ####[facility] Rlaxyrwavi6135[address] [place], [place] [address]Dr.Grace AbdulMONO #0.7 103/ulNormal0.3-0.8 The [facility] HospitalComment on above:Performed By: #### CBC ####[facility] Zxacotssyu8910[address] [place], [place] [address]Dr.Grace Abdul Monocytes/100 WBC (Bld)13.5 %Critically high1.7-12.0The [facility] HospitalComment on above:Performed By: #### CBC ####[facility] Vuerdknbht143[address] [place], [place] [address]Dr.Grace AbdulNEUT #3.8 103/ulNormal1.4-6.5The [facility] HospitalComment on above:Performed By: #### CBC ####[facility] Gbmlbmepgc360[address] [place], [place] [address]Dr.Benitalee ann FrankoNeutrophils/100 WBC (Bld)70.5 %Cfhmuz13.0-75.0The [facility] HospitalComment on above:Performed By: #### CBC ####[facility] Glxdjbgynv0513[address] [place], [place] [address]Dr.Benitalee ann AbdulPlatelet mean volume (Bld) [Entitic vol]9.0 fLCritically low 9.5-13.5The [facility] HospitalComment on above:Performed By: #### CBC ####[facility] Hpcvddbghe579[address] [place], [place] [address]Dr. Grace AbdulPLT283 103/ebLgpbxy509-489Syq [facility] HospitalComment on above: Performed By: #### CBC ####[facility] Ufofbwdhhd875[address] [place], [place] [address]Dr.Grace AbdulRBC4.07 106/ulCritically low4.20-5.40The [facility] CenterComment on above:Performed By: #### CBC ####[facility] Bcgqphqten[address] [place], [place] [address]MkKem AbdulWBC5.4 103/ul Normal4.0-11.0The [facility] Medical CenterComment on above:Performed By: #### CBC ####[facility] Kwntxquumq12[address] [place], [place] [address]FhLisette AbdulCT ABD/PELV W CONon 59-96-4907MD ABD/PELV W CONEXAM: CT ABD/PELV W CON [...] Electronically authenticated by: EMILY NAVARRETE Date: 2022-04-04 16:59No[facility] URINE PROFILEon 57-99-9041Ozshckuop Ql (U)NegativeNormal NEGATIVEMercy Health Springfield Regional Medical CenterComment on above:Performed By: #### ROBERT KIRKLAND ####[facility] V[address]brvjdm[address] [id number]. Yilan ChangClarity (U)CLEARNormalCLEARMercy Health Springfield Regional Medical CenterComment on above: Performed By: #### ROBERT KIRKLAND ####[facility] [address]so[address] [address]Dr. Yilan ChangColor (U)LT. YELLOWNormalYELLOWMercy Health Springfield Regional Medical CenterComment on above:Performed By: #### ROBERT KIRKLAND ####[facility] Dijayqdlgb[address] [place], [place] [id number]. Yilan ChangERUAHD A micrscopic examination will be performed if indicated.NormalThe [facility] Medical CenterComment on above:Performed By: #### ROBERT KIRKLAND ####[facility] Relormrwcp[address] [place], [place] [address]Dr. Yilan ChangGlucose Ql (U) NegativeNormalNEGATIVEMercy Health Springfield Regional Medical CenterComment on above:Performed By: #### ROBERT KIRKLAND ####[facility] Adioypqmvy[address] [place], [place] [address]Dr. Yilan ChangHemoglobin Ql (U)SMALLAbnormalNEGATIVEMercy Health Springfield Regional Medical Center Comment on above:Performed By: #### ROBERT KIRKLAND ####[facility] Upuvkihzxl[address] [place], [place] [address]Dr. Yilan ChangKetones Ql (U) NegativeNormalNEGATIVEMercy Health Springfield Regional Medical CenterComment on above:Performed By: #### ROBERT KIRKLAND ####[facility] Dfmiyyihzo60[address] [place], [place] [address]Dr. Yilan ChangLEUKOCYTESTRACEAbnormalNEGATIVEMercy Health Springfield Regional Medical CenterComment on above:Performed By: #### ROBERT KIRKLAND ####[facility] [address]ifbtx[address] [phone]. Grace AbdulNitrite Ql (U)NegativeNormal NEGATIVEThe [facility] CenterComment on above:Performed By: #### ROBERT KIRKLAND ####[facility] Onrommbger[address] [id number]. Grace ChangpH (U)7.5 [pH]Normal5-9The [facility] CenterComment on above: Performed By: #### ROBERT KIRKLAND ####[facility] Jaqmlqwgdu38[address] [place], [place]Dr. Grace AbdulSPEC GRAVITY1.082Geqfjg3.005-<=1.025The [facility] CenterComment on above:Performed By: #### ROBERT KIRKLAND ####[facility] Xpwizkrteo26[address] [place], [place]Dr. Grace AbdulUA PROTEINNegativeNormalNEGATIVE/ TRACEThe [facility] HospitalComment on above: Performed By: #### ROBERT KIRKLAND ####[facility] Njyrxevzew2[address] [place], [place]Dr. Grace AbdulUR MICRO INDINDICATEDNormalThe [facility] Medical CenterComment on above:Performed By: #### ROBERT KIRKLAND ####[facility] Cgizyvpvvs58[address] [place], [place]Dr. Grace AbdulUrobilinogen Qn (U)0.2 {Ashley'U}/dLNormal0.2 - 1.0The [facility] CenterComment on above: Performed By: #### GINA KIRKLANDRO ####[facility] Zrnnsakcsk95[address] [place], [place]Dr. Grace AbdulLIPASEon 04-31-2079Clztxv [Catalytic activity/Vol]115.0 U/GAfbghv59.0-393.0The [facility] CenterComment on above: Performed By: #### CVDTBH #### [facility] [address] [place], [place] [address] Dr. Grace Reno 14(COMP METB)on 75-10-5323Aonlfju [Mass/Vol]3.6 g/dLNormal 3.4-5.0The [facility] CenterComment on above:Performed By: #### CVDTBH #### [facility] [address] [place] [address] Dr. Grace AbdulAlbumin/Globulin [Mass ratio]1.1 {ratio}NormalThe [facility] CenterComment on above:Performed By: #### CVDTBH #### [facility] [address] [place] [address] Dr. Grace CalderonP [Catalytic activity/Vol]74 U/MAspxip88-824Fkt [facility] CenterComment on above:Performed By: #### CVDTBH #### [facility] [address] [place] [address] Dr. Grace CalderonT [Catalytic activity/Vol]23 U/LPltffl35-08Nlp [facility] CenterComment on above:Performed By: #### CVDTBH #### [facility] [address] [place] [address] Dr. Grace Kauffmanon gap [Moles/Vol]12.1 mmol/LNormalThe [facility] Comment on above:Performed By: #### CVDTBH #### [facility] [address] [place] [address] Dr. Grace AbdulAST [Catalytic activity/Vol]21 U/SCwurbo21-14Toy [facility] CenterComment on above:Performed By: #### CVDTBH #### [facility] [address] [place] [address] Dr. Grace AbdulBilirubin [Mass/Vol]0.2 mg/dLNormal0.2-1.0The [facility] Comment on above:Performed By: #### CVDTBH #### [facility] [address] [place] [address] Dr. Grace AbdulCalcium [Mass/Vol]9.3 mg/dLNormal8.5-10.1The [facility] Comment on above:Performed By: #### CVDTBH #### [facility] [address] [place] [address] Dr. Grace AbdulChloride [Moles/Vol]99 mmol/ALnalmt10-350Pnp [facility] Comment on above:Performed By: #### CVDTBH #### [facility] [address] [place] [address] Dr. Grace AbdulCO2 [Moles/Vol]31.2 mmol/FHglctq82.0-32.0The [facility] Comment on above:Performed By: #### CVDTBH #### [facility] [address] [place] [address] Dr. Grace AbdulCreatinine [Mass/Vol]1.22 mg/dLCritically high0.55-1.02The [facility] CenterComment on above:Performed By: #### CVDTBH #### [facility] [address] [place] [address] Dr. Edwards ChangEGFR-AF XKZFMNWH21 mL/min/1.05n7Ktyabdufqj low>=60The [facility] CenterComment on above:Performed By: #### CVDTBH #### [facility] [address] [place] [address] Dr. Grace RichardGFR-NON AF DHYODBRK25 mL/min/1.09r7Qjnqyurwjc low>=60The [facility] CenterComment on above:Performed By: #### CVDTBH #### [facility] [address] [place] [address] Dr. Grace AbdulGlobulin (S) [Mass/Vol]3.3 g/dLNormalThe [facility] CenterComment on above:Performed By: #### CVDTBH #### [facility] [address] [place] [address] Dr. Grace AbdulGlucose [Mass/Vol]115 mg/dLCritically mheq96-064Rpb [facility] CenterComment on above:Performed By: #### CVDTBH #### [facility] [address] [place] [address] Dr. Grace AbdulPotassium [Moles/Vol]3.3 mmol/LCritically low3.5-5.1The [facility] CenterComment on above:Performed By: #### CVDTBH #### [facility] [address] [address] [address] Grace AbdulProtein [Mass/Vol]6.9 g/dLNormal6.4-8.2The [facility] Comment on above:Performed By: #### CVDTBH #### [facility] [address] [address] [address] Grace AbdulSodium [Moles/Vol]139 mmol/MDzusee738-699Tlt [facility] Comment on above:Performed By: #### CVDTBH #### [facility] [address] [address] [address] Grace Bernal nitrogen [Mass/Vol]23.0 mg/dLCritically high7.0-18.0The [facility] CenterComment on above:Performed By: #### CVDTBH #### [facility] [address] [address] [address] Grace Bernal nitrogen/Creatinine [Mass ratio]18.9 mg/mgNormalThe [facility] CenterComment on above:Performed By: #### CVDTBH #### [facility] [address] [address] [address] Grace Marcos MICROSCOPIC ONLYon 60-68-8801EOPYRURBPFOJ SEENNormalNONE SEENThe [facility] CenterComment on above:Performed By: #### MARITA UMICRO ####[facility] Hkqbdyejgr48[address] [place], [place]Dr. Grace Dunncteria identified Cx Nom (U)NOT INDICATEDNormSt. Elizabeth HospitalComment on above:Performed By: #### MARITA UMICRO ####[facility] Xmxokntvdi112[address] [place], [place]Dr. Grace AbdulCASTNONE SEEN NormalNONE SEENMercy Health Springfield Regional Medical CenterComment on above:Performed By: #### MARITA UMICRO ####[facility] Lsnxxgvbmd7[address] [place], [place] [address]FvDr. Grace Pinedoystals LM Nom (Urine sed)NONE SEENNormalNONE SEENThe [facility] CenterComment on above:Performed By: #### ERUR, UMICRO ####[facility] Bernrykmio[address] [place] [phone]. Grace Abdul Epithelial cells LM Ql (Urine sed)RARENormalNONE SEEN /RAREThe [facility] Comment on above:Performed By: #### GINA KIRKLANDRO ####[facility] D[address]wjewxc[address] [phone]. Grace ChangMUCOUSNONE SEEN NormalNONE SEENThe [facility] CenterComment on above:Performed By: #### MARITA UMICRO ####[facility] Q[address]plty[address] [address]Dr. Grace AbdulCctazSID0-8Tqphko4-6Jdh [facility] CenterComment on above: Performed By: #### GODWIN KIRKLANDICRO ####[facility] V[address]wkdf[address] [address]Dr. Grace AbdulWBC0-2AbnormalNONE SEENThe [facility] CenterComment on above:Performed By: #### MARITA ICRO ####[facility] Wefqpcxzct[address] [place], [place] [address]Dr. Grace AbdulBNPon 17-34-6065Heppektyiip peptide B (Bld) [Mass/Vol]665.0 pg/mLNormal<=1,800.0The [facility] CenterComment on above:Performed By: #### BMP #### [facility] [address] [address] [address] Grace Casey AUTO DIFFon 95-46-7271DCZA #0.0 103/ulNormal0.0-0.1The [facility] CenterComment on above:Performed By: #### CBC ####[facility] Zbqtbfqsnq[address] [place], [place] [address]Dr.Grace AbdulBasophils/100 WBC (Bld)0.5 %Normal0.2-2.0The [facility] CenterComment on above:Performed By: #### CBC ####[facility] Urfobwzlwh58[address] [place], [place] [address]Dr.Grace ChangEO #0.1 103/ulNormal0.0-0.7The [facility] HospitalComment on above:Performed By: #### CBC ####[facility] Blneouxejm[address] [place], [place] [address]Dr.Grace ChangEosinophils/100 WBC (Bld)1.9 %Normal 0.9-7.0The [facility] HospitalComment on above:Performed By: #### CBC ####[facility] Lihpzciwrx67[address] [place], [place] [address]Dr.Benitalee ann Abdul Erythrocyte distribution width (RBC) [Ratio]13.4 %Qohhgc68.0-15.0The [facility] HospitalComment on above:Performed By: #### CBC ####[facility] Cywgullykm[address] [place], [place] [address]Dr.Benitalee ann ChangHematocrit (Bld) [Volume fraction]36.2 %Jdgikc62.0-48.0The [facility] CenterComment on above:Performed By: #### CBC ####[facility] Exoukygzup[address] [place], [place] [address]Dr.Grace ChangHemoglobin (Bld) [Mass/Vol]11.9 g/dL Critically low12.0-16.0The [facility] HospitalComment on above:Performed By: #### CBC ####[facility] Qpaghwukwt[address] [place], [place] [address]Dr. Grace ChangIG #0.01 10e3/ulNormal0.00-0.03The [facility] HospitalComment on above: Performed By: #### CBC ####[facility] Lsjqentkox[address] [place], [place] [address]Dr.Grace ChangIG %0.2 %Normal0.0-0.5The [facility] CenterComment on above:Performed By: #### CBC ####[facility] Tvqzjhvhcu[address] [place], [place] [address]Dr.Grace ChangLYMPH #0.5 103/ulCritically low1.2-3.8The [facility] CenterComment on above:Performed By: #### CBC ####[facility] U[address]anndgkp[address] [place] [address]Dr.Grace AbdulLymphocytes/100 WBC (Bld)11.5 %Critically low20.5-60.0The [facility] CenterComment on above:Performed By: #### CBC ####[facility] Nqxbztbayu[address] [place] [address]Dr.Grace AbdulMANUAL DIFF REQ NONormalThe [facility] CenterComment on above:Performed By: #### CBC ####[facility] Alfefiwmqj35[address] [place], [place] [address]Dr. Grace AbdulH (RBC) [Entitic mass]31.6 euPpitfm06.7-34.0The [facility] Comment on above:Performed By: #### CBC ####[facility] Fvvgkkibap[address] [place], [place] [address]Dr.Grace AbdulHC (RBC) [Mass/Vol]32.9 g/dL Iqdwvv53.9-35.2The [facility] CenterComment on above:Performed By: #### CBC ####[facility] Vuttboyhyo[address] [place], [place] [address]Dr. Grace AbdulV (RBC) [Entitic vol]96.0 iKYqtcny98.0-99.0The [facility] Comment on above:Performed By: #### CBC ####[facility] Cqcxobmwfg8[address] [place], [place] [address]Dr.Grace AbdulMONO #0.6 103/ulNormal0.3-0.8 The [facility] CenterComment on above:Performed By: #### CBC ####[facility] Mvxayomjjo[address] [place], [place] [address]Dr.Grace Abdul Monocytes/100 WBC (Bld)14.4 %Critically high1.7-12.0The [facility] CenterComment on above:Performed By: #### CBC ####[facility] Ftmuukrjfo32[address] [place], [place] [address]Dr.Grace AbdulNEUT #3.0 103/ulNormal1.4-6.5The [facility] CenterComment on above:Performed By: #### CBC ####[facility] Nbnzdkzgob[address] [place] [address]Dr.Grace AbdulNeutrophils/100 WBC (Bld)71.5 %Merweq01.0-75.0The [facility] CenterComment on above:Performed By: #### CBC ####[facility] Elyjplqvhp[address] [place] [address]Dr.Grace AbdulPlatelet mean volume (Bld) [Entitic vol]9.2 fLCritically low 9.5-13.5The [facility] CenterComment on above:Performed By: #### CBC ####[facility] Ymhcjueqxl[address] [place] [address]Dr. Grace CrckaPQN942 103/zqWbcqeu199-731Ula [facility] CenterComment on above: Performed By: #### CBC ####[facility] Rngwwesacn[address] [place] [address]Dr.Grace AbdulRBC3.77 106/ulCritically low4.20-5.40The [facility] CenterComment on above:Performed By: #### CBC ####[facility] Acmhnokcyj[address] [place] [address]Dr.Grace AbdulWBC4.2 103/ul Normal4.0-11.0The [facility] CenterComment on above:Performed By: #### CBC ####[facility] [address]eqwhhgyus[address] [place] [address]Dr. Grace AbdulFREE THYROXINE INDEX T7on 32-22-0497RKH7.02Uegcrv2.30-4.50The [facility] CenterComment on above:Performed By: #### BMP #### [facility] [address] [address] [address] Grace AbdulT3U35.0 %Oxcxhe39.0-39.0The [facility]c Medical CenterComment on above: Performed By: #### BMP #### [facility] [address] [address] [address] Grace AbdulT4 [Mass/Vol]7.50 ug/dLNormal4.80-13.90The [facility] Comment on above:Performed By: #### BMP #### [facility] [address] [address] [address] Grace FairCOHEMOGLOBIN A1Con 86-03-9299BEN RECOMMENDATIONSEE BELOWNormal The [facility] CenterComselect specialty hospital on above:Result Comment: ADA RECOMMENDED LIMIT 4.0 - 6.0 ADA THERAPEUTIC TARGET < 7.0 ACTION SUGGESTED > 7.0Performed By: #### A1C ####[facility] [address] [address]Dr. Grace AbdulGlucose [Mass/Vol]111 mg/dLNormSt. Elizabeth HospitalComment on above:Performed By: #### A1C ####[facility] [address] [address]Dr.Yilan AbdulHbA1c (Bld) [Mass fraction]5.5 %Normal 4.5-6.2The [facility] Medical CenterComment on above:Performed By: #### A1C ####[facility] [address] [place], [place] [address]Dr.Yilan AbdulIRONon 21-92-8538Gzlc [Mass/Vol]50.0 ug/eUFcneto99.0-170.0The [facility] CenterComment on above:Performed By: #### IRON, VITAD, VITB12 ####[facility] [address] [address]DrLisette AbdulLIPID PROFILE on 64-61-7893PPHV-HDL RATIO NORMSEE BELOWAvita Health System Ontario HospitalComment on above:Result Comment: 3.3 - 4.4 LOW RISK 4.4 - 7.1 AVERAGE RISK 7.1 - 11.0 MODERATE RISK >11.0 HIGH RISKPerformed By: #### BMP #### [facility] [address] [address] [address] Grace AbdulCholesterol [Mass/Vol]182 mg/dLNormal<=200The [facility] Comment on above:Performed By: #### BMP #### [facility] [address] [address] [address] Grace Greeresterol in HDL [Mass/Vol]60 mg/eLZspcek96-82Nbn [facility] CenterComment on above:Performed By: #### BMP #### [facility] [address] [address] [address] Grace AbdulCholesterol in LDL [Mass/Vol]101.2 mg/dLAvita Health System Ontario HospitalComment on above:Performed By: #### BMP #### [facility] [address] [address] [address] Grace AbdulCholesterol.total/Cholesterol in HDL [Mass ratio]3.0 {ratio} NormalThe [facility]c Medical CenterComment on above:Performed By: #### BMP #### [facility] [address] [place] [address] Dr. Grace Lopez NORMAL> or = 60 mg/dl - LOW CARDIOVASCULAR RISK <40 mg/dl - HIGH CARDIOVASCULAR RISKAvita Health System Ontario HospitalComment on above:Performed By: #### BMP #### [facility] [address] [place] [address] Dr. Grace La CALC NORMALSEE BELOWAvita Health System Ontario HospitalComment on above:Result Comment: <100 mg/dl OPTIMAL 100 - 129 mg/dl NEAR OR ABOVE OPTIMAL 130 - 159 mg/dl BORDERLINE HIGH 160 - 189 mg/dl HIGH >190 mg/dl VERY HIGH Performed By: #### BMP #### [facility] [address] [place] [address] Dr. Grace AbdulTriglyceride [Mass/Vol]104 mg/dLNormal<=150The [facility] Comment on above:Performed By: #### BMP #### [facility] [address] [place] [address] Dr. Grace StarksLDL CALC20.8 mg/dLNoMarion HospitalComment on above: Performed By: #### BMP #### [facility] [address] [place] [address] Dr. Grace AbdulPROF 14(COMP METB)on 71-86-8370Ouvyrsj [Mass/Vol]3.5 g/dLNormal 3.4-5.0The [facility] CenterComment on above:Performed By: #### BMP #### [facility] [address] [place] [address] Dr. Grace AbdulAlbumin/Globulin [Mass ratio]1.0 {ratio}NormalThe [facility] Medical CenterComment on above:Performed By: #### BMP #### [facility] [address] [address] [address] Grace CalderonP [Catalytic activity/Vol]55 U/VPpjyfk01-401Nil [facility] CenterComment on above:Performed By: #### BMP #### [facility] [address] [place] [address] Dr. Grace CalderonT [Catalytic activity/Vol]21 U/WMhcbsg91-22Hto [facility] Medical CenterComment on above:Performed By: #### BMP #### [facility] [address] [place] [address] Dr. Grace AbdulAnion gap [Moles/Vol]9.3 mmol/LNormalThe [facility] Medical CenterComment on above:Performed By: #### BMP #### [facility] [address] [place] [address] Dr. Grace AbdulAST [Catalytic activity/Vol]21 U/ISoodap11-20Uua [facility] CenterComment on above:Performed By: #### BMP #### [facility] [address] [place] [address] Dr. Grace AbdulBilirubin [Mass/Vol]0.3 mg/dLNormal0.2-1.0The [facility] Comment on above:Performed By: #### BMP #### [facility] [address] [place] [address] Dr. Grace AbdulCalcium [Mass/Vol]9.5 mg/dLNormal8.5-10.1The [facility] Comment on above:Performed By: #### BMP #### [facility] [address] [place] [address] Dr. Grace AbdulChloride [Moles/Vol]102 mmol/VCiuupz59-323Hjv [facility] Comment on above:Performed By: #### BMP #### [facility] [address] [address] [address] Grace AbdulCO2 [Moles/Vol]28.5 mmol/GYprulf78.0-32.0The [facility] Comment on above:Performed By: #### BMP #### [facility] [address] [place] [address] Dr. Grace AbdulCreatinine [Mass/Vol]1.04 mg/dLCritically high0.55-1.02The [facility] CenterComment on above:Performed By: #### BMP #### [facility] [address] [place] [address] Dr. Edwards ChangEGFR-AF BELGIAN>60Normal>=60The [facility] CenterComment on above:Performed By: #### BMP #### [facility] [address] [place] [address] Dr. Grace RichardGFR-NON AF ICQMLPDJ26 mL/min/1.18c9Ygfygxccct low>=60The [facility] CenterComment on above:Performed By: #### BMP #### [facility] [address] [place] [address] Dr. Grace AbdulGlobulin (S) [Mass/Vol]3.5 g/dLNormalThe [facility] CenterComment on above:Performed By: #### BMP #### [facility] [address] [place] [address] Dr. Grace AbdulGlucose [Mass/Vol]102 mg/oKCivugg08-995LmeMercy Health [facility] Comment on above:Performed By: #### BMP #### [facility] [address] [place] [address] Dr. Grace AbdulPotassium [Moles/Vol]3.8 mmol/LNormal3.5-5.1The [facility] Comment on above:Performed By: #### BMP #### [facility] [address] [place] [address] Dr. Grace AbdulProtein [Mass/Vol]7.0 g/dLNormal6.4-8.2The [facility] Comment on above:Performed By: #### BMP #### [facility] [address] [place] [address] Dr. Grace AbdulSodium [Moles/Vol]136 mmol/IRdlqch803-368Piz [facility] Comment on above:Performed By: #### BMP #### [facility] [address] [address] [address] Grace AbdulUrea nitrogen [Mass/Vol]20.0 mg/dLCritically high7.0-18.0The [facility] CenterComment on above:Performed By: #### BMP #### [facility] [address] [address] [address] Grace AbdulUrea nitrogen/Creatinine [Mass ratio]19.2 mg/mgNoMarion HospitalComment on above:Performed By: #### BMP #### [facility] [address] [place] [address] Dr. Grace AbdulTSHoelida 65-02-2764DQJ7.247 uIU/mLCritically low0.358-3.740The [facility] CenterComment on above:Performed By: #### BMP #### [facility] [address] [place] [address] Dr. Grace AbdulVITAMIN B12on 04-29-3046Vmzlpdkxo (Vitamin B12) [Mass/Vol]762.0 pg/dBFzjbgr343.0-986.0The [facility] CenterComment on above:Performed By: #### IRON, VITAD, VITB12 ####[facility] [address]namtdt[address] [place], [place] [address]Dr. Grace AbdulVITAMIN D 25 OHon 84-51-5268FHW D 25-OH 54.9 ng/mLNormalThe [facility] CenterComment on above:Performed By: #### IRON, VITAD, VITB12 ####[facility] [address] [address]Dr. Grace AbdulVIT D RANGESSEE BELOWAvita Health System Ontario HospitalComment on above:Result Comment: <20 ng/mL Vit D deficient 20 - <30 ng/mL Vit D insufficient 30 - 100 ng/mL Vit D sufficient >100 ng/mL Potential Toxicity Performed By: #### IRON, VITAD, VITB12 ####[facility] [address] [id number] Bocanegra MAMM SCREEN 3D CLEMENCIA CADon 71-05-0682VC MAMM SCREEN 3D CLEMENCIA CADPatient: ALEXA DELGADO Exam Date: 11/25/2021 : 1940 Gender:F Ordering : DR GALINA PALMER . Admission #: [id number] Family : DR ARMANDO THAYER Order #: [id number] CLICK HERE TO VIEW EXAM RADIOLOGY REPORT [...] MD on 11/25/2021 at 14:14[facility] CULTURE URINEon 27-07-7037LXJBVGN URINECulture Observations: LIGHT GROWTH OF MIXED GENITAL ALANIS. NO POTENTIAL PATHOGENS SEEN.NormalThe [facility] Medical CenterComment on above:Performed By: #### URCX ####[facility] [address] [id number]. Grace Crow PANEL (PCR) on 02-99-4332Samchgauij F 40/41Not detectedNormalNOT DETECTEDMercy Health Springfield Regional Medical CenterComment on above:Performed By: #### CBC #### [facility] [address] [address] [address] Grace AbdulAstrovirusNot detectedNormalNOT DETECTEDThe [facility] Comment on above:Performed By: #### CBC #### [facility] [address] [address] [address] Grace Meza. Diff toxin A/BNot detectedNormalNOT DETECTEDThe [facility] CenterComment on above:Performed By: #### CBC #### [facility] [address] [address] [address] Grace BarnespylobacterNot detectedNormalNOT DETECTEDThe [facility] Comment on above:Performed By: #### CBC #### [facility] [address] [address] [address] Grace AbdulCryptosporidiumNot detectedNormalNOT DETECTEDThe [facility] CenterComment on above:Performed By: #### CBC #### [facility] [address] [address] [address] Grace Whitney. CayetanensisNot detectedNormalNOT DETECTEDThe [facility] CenterComment on above:Performed By: #### CBC #### [facility] [address] [address] [address] Grace Lizarraga Coli V268Ost ApplicableNormalNot ApplicableThe [facility] CenterComselect specialty hospital on above:Performed By: #### CBC #### [facility] [address] [address] [address] Grace Lizarraga histolyticaNot detectedNormalNOT DETECTEDThe [facility] Comment on above:Performed By: #### CBC #### [facility] [address] [address] [address] Grace RichardAECNot detectedNormalNOT DETECTEDThe [facility] CenterComment on above:Performed By: #### CBC #### [facility] [address] [address] [address] Grace RichardIECNot detectedNormalNOT DETECTEDThe [facility] CenterComselect specialty hospital on above:Performed By: #### CBC #### [facility] [address] [address] [address] rGace RichardPECNot detectedNormalNOT DETECTEDThe [facility] CenterComment on above:Performed By: #### CBC #### [facility] [address] [address] [address] Grace Groves detectedNormalNOT DETECTEDMercy Health Springfield Regional Medical CenterComment on above:Performed By: #### CBC #### [facility] [address] [address] [address] Grace Huang LambliaNomerritt detectedNormalNOT DETECTEDMercy Health [facility] Center Comment on above:Performed By: #### CBC #### [facility] [address] [address] [address] Grace Reid CONTROLSGlenbeigh HospitalComment on above:Performed By: #### CBC #### [facility] [address] [address] [address] Grace DIETRICH HEADERGI [facility] Comment on above:Performed By: #### CBC #### [facility] [address] [address] [address] Grace Tena ECOLIGI PANEL DIARRHEAGENIC E.COLI / SHIGELLAAvita Health System Ontario HospitalComment on above:Performed By: #### CBC #### [facility] [address] [address] [address] Grace Tena INFOSETwin City HospitalComselect specialty hospital on above: Result Comment: EAEC- Enteroaggregative E. Coli EPEC- Enteropathogenic E. Coli ETEC- Enterotoxigenic E. Coli lt/st STEC- Shigella-like toxin-producing E. Coli stx1/stx2 EIEC- Shigella/Enteroinvasive E. ColiPerformed By: #### CBC #### [facility] [address] [address] [address] Grace Tena PARASITESGI PANEL [facility] Comment on above:Performed By: #### CBC #### [facility] [address] [address] [address] Grace Tena VIRUSGI PANEL [facility] HospitalComment on above:Performed By: #### CBC #### [facility] [address] [address] [address] Grace Pinarovirus GI/GIINot detectedNormalNOT DETECTEDThe [facility] CenterComment on above:Performed By: #### CBC #### [facility] [address] [address] [address] Grace Amin. ShigelloidesNot detectedNormalNOT DETECTEDThe [facility] CenterComment on above:Performed By: #### CBC #### [facility] [address] [address] [address] Grace AbdulRotavirus ANot detectedNormalNOT DETECTEDThe [facility] Comment on above:Performed By: #### CBC #### [facility] [address] [address] [address] Grace AbdulSalmonellaNot detectedNormalNOT DETECTEDThe [facility] Comment on above:Performed By: #### CBC #### [facility] [address] [address] [address] Grace AbdulSapovirusNot detectedNormalNOT DETECTEDThe [facility] Comment on above:Performed By: #### CBC #### [facility] [address] [address] [address] Grace AbdulSTECNot detectedNormalNOT DETECTEDThe [facility] CenterComselect specialty hospital on above:Performed By: #### CBC #### [facility] [address] [address] [address] Grace BenzbrioNot detectedNormalNOT DETECTEDThe [facility] CenterComment on above:Performed By: #### CBC #### [facility] [address] [address] [address] Grace Rappio CholeraNot detectedNormalNOT DETECTEDMercy Health [facility] Comment on above:Performed By: #### CBC #### [facility] [address] [address] [address] Grace Montoya. EnterocoliticaNot detectedNormalNOT DETECTEDThe [facility] CenterComment on above:Performed By: #### CBC #### [facility] [address] [address] [address] Grace Cespedes RANDOM W/MICROSCOPICon 68-48-6702YKWWVXQKFALL SEENNormalNONE SEENMercy Health Springfield Regional Medical CenterComment on above:Performed By: #### UAMIC ####[facility] Msqc[address] [place], [place] [address]Dr. Grace Abdul Bilirubin Ql (U)NegativeNormalNEGATIVEMercy Health Springfield Regional Medical CenterComment on above: Performed By: #### UAMIC ####[facility] [address] [place], [place] [address]Dr. Grace ChangCASTNONE SEENNormalNONE SEENMercy Health Springfield Regional Medical CenterComment on above:Performed By: #### UAMIC ####[facility] [address] [place], [place] [address]Dr. Grace AbdulClarity (U) CLEARNormalCLEARMercy Health Springfield Regional Medical CenterComment on above:Performed By: #### UAMIC ####[facility] Z[address]low[address] [place], [place] [address]Dr. Grace AbdulColor (U)LT. YELLOWNormalYELLOWMercy Health Springfield Regional Medical CenterComment on above: Performed By: #### UAMIC ####[facility] [address]ch[address] [place], [place] [address]Dr. Grace AbdulCrystals LM Nom (Urine sed)NONE SEEN NormalNONE SEENMercy Health Springfield Regional Medical CenterComselect specialty hospital on above:Performed By: #### UAMIC ####[facility] [address]wm[address] [place], [place] [address]Dr. Grace ChangEpithelial cells LM Ql (Urine sed)FEWAbnormalNONE SEEN /RAREThe [facility] CenterComment on above:Performed By: #### UAMIC ####[facility] Qx[address]zus[address] [place], [place] [address]Dr. Grace AbdulGlucose Ql (U)NegativeNormalNEGATIVEMercy Health Springfield Regional Medical CenterComment on above:Performed By: #### UAMIC ####[facility] [address]woecxar[address] [place], [place] [address]Dr. rGace AbdulHemoglobin Ql (U)TRACE-INTACTAbnormalNEGATIVEMercy Health Springfield Regional Medical CenterComment on above:Performed By: #### UAMIC ####[facility] [address] [address]Dr. Yilan ChangKetones Ql (U) NegativeNormalNEGATIVEThe Lake Minchumina HospitalComment on above:Performed By: #### UAMIC ####[facility] Y[address]lnqm[address] [place], [place] [address]Dr. Yilan ChangLEUKOCYTESNegativeNormalNEGATIVEThe [facility]ch[facility] HospitalComment on above:Performed By: #### UAMIC ####[facility] Ogndtqrolg[address] [place], [place] [address]Dr. Yilan ChangMUCOUSNONE SEENNormalNONE SEENThe [facility]ch[facility] HospitalComment on above:Performed By: #### UAMIC ####[facility] [address]fecw[address] [place], [place] [address]Dr. Yilan ChangNitrite Ql (U)NegativeNormalNEGATIVEThe [facility]ch[facility] HospitalComment on above:Performed By: #### UAMIC ####[facility] Qgiawulkkh[address] [place], [place] [address]Dr. Yilan ChangpH (U)7.5 [pH]Normal5-9The [facility] CenterComment on above:Performed By: #### UAMIC ####[facility] Fts[address]idsiu[address] [place], [place] [address]Dr. Yilan QrqqzKWY6-2Vvrtuc3-7Wym [facility] Comment on above:Performed By: #### UAMIC ####[facility] Rppsnmzccu[address] [place], [place] [address]Dr. Yilan ChangSPEC GRAVITY1.010Normal 1.005-<=1.025The [facility] CenterComment on above:Performed By: #### UAMIC ####[facility] [address]ctni[address]ys[address] [place], [place] [address]Dr. Yilan ChangUA PROTEINNegativeNormalNEGATIVE/ TRACEThe [facility]chumina HospitalComment on above:Performed By: #### UAMIC ####[facility] Ofjphqenaq[address] [place], [place] [address]Dr. Yilan ChangUrobilinogen Qn (U)0.2 {Ashley'U}/dL Normal0.2 - 1.0The [facility] CenterComment on above:Performed By: #### UAMIC ####[facility] [address] [address]Dr. Grace AbdulWBCNONE SEENNormalNONE SEENThe [facility] CenterComment on above: Performed By: #### UAMIC ####[facility] [address] [address]Dr. Grace MoranC AUTO DIFFon 46-56-8948CWLF #0.0 103/ulNormal0.0-0.1The [facility] CenterComment on above:Performed By: #### CBC #### [facility] [address] [place] [address] Dr. Grace AbdulBasophils/100 WBC (Bld)0.4 %Normal0.2-2.0The [facility] Comment on above:Performed By: #### CBC #### [facility] [address] [address] [address] Grace Blunt #0.1 103/ulNormal0.0-0.7The [facility] CenterComment on above: Performed By: #### CBC #### [facility] [address] [place] [address] Dr. Grace Richardosinophils/100 WBC (Bld)1.5 %Normal0.9-7.0The [facility] Comment on above:Performed By: #### CBC #### [facility] [address] [address] [address] Grace Richardrythrocyte distribution width (RBC) [Ratio]13.2 %Fntgxt28.0-15.0 The [facility] CenterComment on above:Performed By: #### CBC #### [facility] [address] [place] [address] Dr. Grace AbdulHematocrit (Bld) [Volume fraction]31.9 %Critically low36.0-48.0 The [facility] CenterComment on above:Performed By: #### CBC #### [facility] [address] [address] [address] Grace AbdulHemoglobin (Bld) [Mass/Vol]10.5 g/dLCritically low12.0-16.0The [facility] CenterComment on above:Performed By: #### CBC #### [facility] [address] [place] [address] Dr. Grace Son #0.01 10e3/ulNormal0.00-0.03The [facility] CenterComment on above:Performed By: #### CBC #### [facility] [address] [place] [address] Dr. Grace Son %0.2 %Normal0.0-0.5The [facility] CenterComment on above: Performed By: #### CBC #### [facility] [address] [place] [address] Dr. Grace Hamilton #0.7 103/ulCritically low1.2-3.8The [facility] Comment on above:Performed By: #### CBC #### [facility] [address] [place] [address] Dr. Grace Willishocytes/100 WBC (Bld)14.8 %Critically low20.5-60.0The [facility] CenterComment on above:Performed By: #### CBC #### [facility] [address] [place] [address] Dr. Grace FloresUAL DIFF REQNONormalThe [facility] CenterComment on above: Performed By: #### CBC #### [facility] [address] [place] [address] Dr. Grace Perdomo (RBC) [Entitic mass]31.4 qwFualxy36.7-34.0The [facility] CenterComment on above:Performed By: #### CBC #### [facility] [address] [place] [address] Dr. Grace Perdomo (RBC) [Mass/Vol]32.9 g/dGMnsdzv98.9-35.2The [facility] CenterComment on above:Performed By: #### CBC #### [facility] [address] [address] [address] Grace PerdomoV (RBC) [Entitic vol]95.5 kIFkqjwe43.0-99.0The [facility] on above:Performed By: #### CBC #### [facility] [address] [place] [address] Dr. Grace Barrios #0.6 103/ulNormal0.3-0.8The [facility] CenterComment on above:Performed By: #### CBC #### [facility] [address] [place] [address] Dr. Grace Riderocytes/100 WBC (Bld)13.4 %Critically high1.7-12.0The [facility] on above:Performed By: #### CBC #### [facility] [address] [place] [address] Dr. Grace Brar #3.3 103/ulNormal1.4-6.5The [facility] on above:Performed By: #### CBC #### [facility] [address] [place] [address] Dr. Grace Solitarioutrophils/100 WBC (Bld)69.7 %Bqgnwm51.0-75.0The [facility] on above:Performed By: #### CBC #### [facility] [address] [place] [address] Dr. Grace Stokeslet mean volume (Bld) [Entitic vol]9.1 fLCritically low 9.5-13.5The [facility] on above:Performed By: #### CBC #### [facility] [address] [place] [address] Dr. Grace AbdulPLT335 103/vvVhhphj734-401Uyz [facility] on above: Performed By: #### CBC #### [facility] [address] [place] [address] Dr. Grace AbdulRBC3.34 106/ulCritically low4.20-5.40The [facility] on above:Performed By: #### CBC #### [facility] [address] [address] [address] Grace AbdulWBC4.8 103/ulNormal4.0-11.0The [facility] CenterComment on above: Performed By: #### CBC #### [facility] [address] [address] [address] Grace Michelle THYROXINE INDEX T7on 19-22-0581NYO5.15Critically low 1.30-4.50The [facility] CenterComment on above:Performed By: #### T7, CMP, TSH ####[facility] [address] [id number]. Grace AbdulT3U31.0 %Rbdefn54.0-39.0The [facility] CenterComment on above: Performed By: #### T7, CMP, TSH ####[facility] [address] [place], [place]Dr. Grace AbdulT4 [Mass/Vol]3.70 ug/dLCritically low 4.80-13.90The [facility] CenterComment on above:Performed By: #### T7, CMP, TSH ####[facility] [address] [id number]. Grace AbdulIRONon 30-42-8926Cycr [Mass/Vol]52.0 ug/kRBltkbs14.0-170.0The [facility] CenterComment on above:Performed By: #### CVDTBH #### [facility] [address] [address] [address] Grace Reno 14(COMP METB)on 45-64-1253Zegifrx [Mass/Vol]3.5 g/dLNormal 3.4-5.0The [facility] CenterComment on above:Performed By: #### T7, CMP, TSH ####[facility] [address] [id number]. Grace AbdulAlbumin/Globulin [Mass ratio]1.1 {ratio}NormalThe [facility] Comment on above:Performed By: #### T7, CMP, TSH ####[facility] [address] [place], [place]Dr. Yilan ChangALP [Catalytic activity/Vol]69 U/YNexqch97-840Wwu [facility] CenterComment on above:Performed By: #### T7, CMP, TSH ####[facility] [address] [place], [place]Dr. Yilan ChangALT [Catalytic activity/Vol]51 U/LNormal 14-59The [facility] CenterComment on above:Performed By: #### T7, CMP, TSH ####[facility] [address]vex[address] [place], [place]Dr. Yilan ChangAnion gap [Moles/Vol]11.5 mmol/LNormalThe [facility] CenterComment on above:Performed By: #### T7, CMP, TSH ####[facility] [address] [place], [place]Dr. Yilan ChangAST [Catalytic activity/Vol]24 U/L Qactgq01-58Nfa [facility] CenterComment on above:Performed By: #### T7, CMP, TSH ####[facility] [address]yzqsk[address] [place], [place]Dr. Yilan ChangBilirubin [Mass/Vol]0.2 mg/dLNormal0.2-1.0The [facility] Comment on above:Performed By: #### T7, CMP, TSH ####[facility] [address] [place], [place] [id number]. Yilan ChangCalcium [Mass/Vol]9.3 mg/dLNormal8.5-10.1The [facility] Centerment on above:Performed By: #### T7, CMP, TSH ####[facility] [address] [place], [place] [id number]. Yilan ChangChloride [Moles/Vol]98 mmol/LNormal 98-107The [facility] CenterComment on above:Performed By: #### T7, CMP, TSH ####[facility] [address] [place], [place] [id number]. Yilan ChangCO2 [Moles/Vol]28.7 mmol/FOgzqmb04.0-32.0The [facility] CenterComment on above:Performed By: #### T7, CMP, TSH ####[facility] [address] [place] [id number]. Yilan ChangCreatinine [Mass/Vol]1.11 mg/dLCritically high0.55-1.02The [facility] CenterComment on above:Performed By: #### T7, CMP, TSH ####[facility] [address] [place] [address]Dr. Yilan ChangEGFR-AF ZOBPLCOD64 mL/min/1.73m2 Critically low>=60The [facility] CenterComment on above:Performed By: #### T7, CMP, TSH ####[facility] [address] [place], [place] [address]Cl. Yilan ChangEGFR-NON AF GERNAGKH52 mL/min/1.02h3Zrhoxpsmns low>=60The [facility] CenterComment on above:Performed By: #### T7, CMP, TSH ####[facility] [address] [place], [place] [address]Dr. Yilan Abdul Globulin (S) [Mass/Vol]3.3 g/dLNormalThe [facility] Medical CenterComment on above: Performed By: #### T7, CMP, TSH ####[facility] [address] [place], [place]Dr. Yilan ChangGlucose [Mass/Vol]88 mg/mVZkloaf53-521 The [facility] CenterComment on above:Performed By: #### T7, CMP, TSH ####[facility] [address] [place], [place]Dr. Yilan ChangPotassium [Moles/Vol]4.2 mmol/LNormal3.5-5.1The [facility] Comment on above:Performed By: #### T7, CMP, TSH ####[facility] [address] [place] [address]Dr. Yilan ChangProtein [Mass/Vol]6.8 g/dLNormal6.4-8.2The [facility] CenterComment on above:Performed By: #### T7, CMP, TSH ####[facility] [address] [place], [place]Dr. Yilan ChangSodium [Moles/Vol]134 mmol/LCritically eln003-868Miy [facility] CenterComment on above:Performed By: #### T7, CMP, TSH ####[facility] [address] [place] [id number]. Yilan ChangUrea nitrogen [Mass/Vol]33.0 mg/dLCritically high7.0-18.0The [facility] CenterComment on above:Performed By: #### T7, CMP, TSH ####[facility] [address] [place] [address]Dr. Yilan ChangUrea nitrogen/Creatinine [Mass ratio]29.7 mg/mgNormalThe [facility] CenterComment on above:Performed By: #### T7, CMP, TSH ####[facility] [address] [place] [id number]. Grace AbdulTSHon 08-08-8801ZSU0.469 uIU/mL Normal0.358-3.740The [facility] CenterComment on above:Performed By: #### T7, CMP, TSH ####[facility] [address] [place] [address]Dr. Grace MoranC AUTO DIFFon 49-00-2312BORU #0.0 103/ulNormal0.0-0.1The [facility] CenterComment on above:Performed By: #### CVDTBH #### [facility] [address] [address] [address] Grace AbdulBasophils/100 WBC (Bld)0.2 %Normal0.2-2.0The [facility] Comment on above:Performed By: #### CVDTBH #### [facility] [address] [address] [address] Grace Blunt #0.1 103/ulNormal0.0-0.7The [facility] CenterComment on above: Performed By: #### CVDTBH #### [facility] [address] [place] [address] Dr. Grace Richardosinophils/100 WBC (Bld)0.9 %Normal0.9-7.0[facility] Comment on above:Performed By: #### CVDTBH #### [facility] [address] [place] [address] Dr. Grace Richardrythrocyte distribution width (RBC) [Ratio]12.8 %Lqhxkk42.0-15.0 [facility] CenterComment on above:Performed By: #### CVDTBH #### [facility] [address] [place] [address] Dr. Grace AbdulHematocrit (Bld) [Volume fraction]35.2 %Critically low36.0-48.0 [facility] CenterComment on above:Performed By: #### CVDTBH #### [facility] [address] [place] [address] Dr. Grace AbdulHemoglobin (Bld) [Mass/Vol]12.1 g/hEVvgnqi56.0-16.0[facility] CenterComment on above:Performed By: #### CVDTBH #### [facility] [address] [place] [address] Dr. Grace Son #0.05 10e3/ulCritically high0.00-0.03[facility] Comment on above:Performed By: #### CVDTBH #### [facility] [address] [place] [address] Dr. Grace Son %0.6 %Critically high0.0-0.5ThGerman HospitalComment on above:Performed By: #### CVDTBH #### [facility] [address] [place] [address] Dr. Grace Hamilton #0.6 103/ulCritically low1.2-3.8The [facility] Comment on above:Performed By: #### CVDTBH #### [facility] [address] [place] [address] Dr. Grace Hillmphocytes/100 WBC (Bld)7.4 %Critically low20.5-60.0The [facility] CenterComment on above:Performed By: #### CVDTBH #### [facility] [address] [place] [address] Dr. Grace Gee DIFF REQNONormalThe [facility] CenterComment on above: Performed By: #### CVDTBH #### [facility] [address] [place] [address] Dr. Grace Perdomo (RBC) [Entitic mass]31.5 tyAwajls69.7-34.0The [facility] CenterComment on above:Performed By: #### CVDTBH #### [facility] [address] [place] [address] Dr. Grace Perdomo (RBC) [Mass/Vol]34.4 g/pAIfqlio04.9-35.2The [facility] CenterComment on above:Performed By: #### CVDTBH #### [facility] [address] [place] [address] Dr. Grace Serrano (RBC) [Entitic vol]91.7 rWVgiwao80.0-99.0The [facility] CenterComment on above:Performed By: #### CVDTBH #### [facility] [address] [place] [address] Dr. Grace Barrios #1.0 103/ulCritically high0.3-0.8The [facility] Comment on above:Performed By: #### CVDTBH #### [facility] [address] [place] [address] Dr. Grace Riderocytes/100 WBC (Bld)12.1 %Critically high1.7-12.0The [facility] CenterComment on above:Performed By: #### CVDTBH #### [facility] [address] [place] [address] Dr. Grace Brar #6.3 103/ulNormal1.4-6.5The [facility] CenterComment on above:Performed By: #### CVDTBH #### [facility] [address] [place] [address] Dr. Grace AbdulNeutrophils/100 WBC (Bld)78.8 %Critically high43.0-75.0The [facility] CenterComment on above:Performed By: #### CVDTBH #### [facility] [address] [place] [address] Dr. Grace AbdulPlatelet mean volume (Bld) [Entitic vol]9.1 fLCritically low 9.5-13.5The [facility] CenterComment on above:Performed By: #### CVDTBH #### [facility] [address] [place] [address] Dr. Grace AbdulPLT281 103/dwBbwjcu114-392Uzq [facility] CenterComment on above: Performed By: #### CVDTBH #### [facility] [address] [place] [address] Dr. Grace AbdulRBC3.84 106/ulCritically low4.20-5.40The [facility] CenterComment on above:Performed By: #### CVDTBH #### [facility] [address] [place] [address] Dr. Grace AbdulWBC8.0 103/ulNormal4.0-11.0The [facility] CenterComment on above: Performed By: #### CVDTBH #### [facility] [address] [place] [address] Dr. Grace AbdulMAGNESIUMon 89-78-3904Wucbdxhcp [Mass/Vol]1.9 mg/dLNormal1.8-2.4 The [facility] CenterComment on above:Performed By: #### CVDTBH #### [facility] [address] [place] [address] Dr. Grace AbdulPROF CHEM 8 (BAS METB)on 86-89-4903Gphss gap [Moles/Vol]13.9 mmol/LNormalThe [facility] CenterComment on above:Performed By: #### CVDTBH #### [facility] [address] [place] [address] Dr. Grace AbdulCalcium [Mass/Vol]8.7 mg/dLNormal8.5-10.1The [facility] Comment on above:Performed By: #### CVDTBH #### [facility] [address] [place] [address] Dr. Grace AbdulChloride [Moles/Vol]101 mmol/OSuuvqa20-776Xej [facility] Comment on above:Performed By: #### CVDTBH #### [facility] [address] [place] [address] Dr. Grace AbdulCO2 [Moles/Vol]24.3 mmol/MVgsghi71.0-32.0The [facility] Comment on above:Performed By: #### CVDTBH #### [facility] [address] [place] [address] Dr. Grace AbdulCreatinine [Mass/Vol]0.89 mg/dLNormal0.55-1.02The [facility] CenterComment on above:Performed By: #### CVDTBH #### [facility] [address] [place] [address] Dr. Grace RichardGFR-AF BELGIAN>60Normal>=60The [facility] CenterComment on above:Performed By: #### CVDTBH #### [facility] [address] [place] [address] Dr. Grace RichardGFR-NON AF BELGIAN>60Normal>=60The [facility] CenterComment on above:Performed By: #### CVDTBH #### [facility] [address] [place] [address] Dr. Grace AbdulGlucose [Mass/Vol]97 mg/lELrbjqk46-498Zvv [facility] Comment on above:Performed By: #### CVDTBH #### [facility] [address] [place] [address] Dr. Grace AbdulPotassium [Moles/Vol]3.2 mmol/LCritically low3.5-5.1The [facility] CenterComment on above:Performed By: #### CVDTBH #### [facility] [address] [place] [address] Dr. Grace Kaurum [Moles/Vol]136 mmol/VGqpmkd616-278Hyv [facility] Comment on above:Performed By: #### CVDTBH #### [facility] [address] [place] [address] Dr. Grace Bernal nitrogen [Mass/Vol]14.0 mg/dLNormal7.0-18.0The [facility] CenterComment on above:Performed By: #### CVDTBH #### [facility] [address] [place] [address] Dr. Grace Bernal nitrogen/Creatinine [Mass ratio]15.7 mg/mgNormalThe [facility] CenterComment on above:Performed By: #### CVDTBH #### [facility] [address] [place] [address] Dr. Grace Casey AUTO DIFFon 07-36-9053YUWZ #0.0 103/ulNormal0.0-0.1The [facility] CenterComment on above:Performed By: #### BMP #### [facility] [address] [place] [address] Dr. Grace AbdulBasophils/100 WBC (Bld)0.2 %Normal0.2-2.0[facility] Comment on above:Performed By: #### BMP #### [facility] [address] [place] [address] Dr. Grace Blunt #0.0 103/ulNormal0.0-0.7The [facility] CenterComment on above: Performed By: #### BMP #### [facility] [address] [place] [address] Dr. Grace Richardosinophils/100 WBC (Bld)0.5 %Critically low0.9-7.0The [facility] CenterComment on above:Performed By: #### BMP #### [facility] [address] [place] [address] Dr. Grace Richardrythrocyte distribution width (RBC) [Ratio]12.4 %Mkwyft79.0-15.0 The [facility] CenterComment on above:Performed By: #### BMP #### [facility] [address] [place] [address] Dr. Grace AbdulHematocrit (Bld) [Volume fraction]33.6 %Critically low36.0-48.0 The [facility] CenterComment on above:Performed By: #### BMP #### [facility] [address] [place] [address] Dr. Grace AbdulHemoglobin (Bld) [Mass/Vol]11.8 g/dLCritically low12.0-16.0The [facility] CenterComment on above:Performed By: #### BMP #### [facility] [address] [place] [address] Dr. Grace AbdulIG #0.04 10e3/ulCritically high0.00-0.03The [facility] Comment on above:Performed By: #### BMP #### [facility] [address] [place] [address] Dr. Grace AbdulIG %0.7 %Critically high0.0-0.5The [facility] CenterComment on above:Performed By: #### BMP #### [facility] [address] [place] [address] Dr. Grace Hamilton #0.7 103/ulCritically low1.2-3.8The [facility] Comment on above:Performed By: #### BMP #### [facility] [address] [place] [address] Dr. Grace Hillmphocytes/100 WBC (Bld)11.1 %Critically low20.5-60.0The [facility] CenterComment on above:Performed By: #### BMP #### [facility] [address] [place] [address] Dr. Grace AbdulMANUAL DIFF REQNONormalThe [facility] CenterComment on above: Performed By: #### BMP #### [facility] [address] [place] [address] Dr. Grace Joy (RBC) [Entitic mass]31.5 drMedhvh94.7-34.0The [facility] CenterComment on above:Performed By: #### BMP #### [facility] [address] [address] [address] Grace PerdomoHC (RBC) [Mass/Vol]35.1 g/sSJzfjrn35.9-35.2The [facility] CenterComment on above:Performed By: #### BMP #### [facility] [address] [address] [address] Grace PerdomoV (RBC) [Entitic vol]89.6 bUEoedyt87.0-99.0The [facility] HospitalComment on above:Performed By: #### BMP #### [facility] [address] [address] [address] Grace Barrios #0.9 103/ulCritically high0.3-0.8The [facility] Comment on above:Performed By: #### BMP #### [facility] [address] [address] [address] Grace Riderocytes/100 WBC (Bld)14.0 %Critically high1.7-12.0The [facility] CenterComment on above:Performed By: #### BMP #### [facility] [address] [address] [address] Grace Brar #4.5 103/ulNormal1.4-6.5The [facility] CenterComment on above:Performed By: #### BMP #### [facility] [address] [address] [address] Grace Solitarioutrophils/100 WBC (Bld)73.5 %Znkshf72.0-75.0The [facility] HospitalComment on above:Performed By: #### BMP #### [facility] [address] [address] [address] Grace Stokeslet mean volume (Bld) [Entitic vol]9.3 fLCritically low 9.5-13.5The [facility] CenterComment on above:Performed By: #### BMP #### [facility] [address] [address] [address] Grace AbdulPLT292 103/txBkfzrz761-290Ybf [facility] CenterComment on above: Performed By: #### BMP #### [facility] [address] [address] [address] Grace AbdulRBC3.75 106/ulCritically low4.20-5.40The [facility] CenterComment on above:Performed By: #### BMP #### [facility] [address] [address] [address] Grace AbdulWBC6.1 103/ulNormal4.0-11.0The [facility] CenterComment on above: Performed By: #### BMP #### [facility] [address] [place] [address] Dr. Grace AbdulCULTURE URINEon 66-61-4187DDVYIZE URINECulture Observations: LIGHT GROWTH OF MIXED GENITAL ALANIS. NO POTENTIAL PATHOGENS SEEN.NormalMercy Health Springfield Regional Medical CenterComment on above:Performed By: #### URCX ####[facility] [address] [address]Dr. Grace RichardR URINE PROFILEon 03-73-0401Pzsfrxbmy Ql (U)NegativeNormalNEGATIVEMercy Health [facility] Comment on above:Performed By: #### CVDTBH #### [facility] [address] [place] [address] Dr. Grace Phelps (U)CLEARNormalCLEARThe [facility] CenterComment on above: Performed By: #### CVDTBH #### [facility] [address] [place] [address] Dr. Grace Powell (U)LT. YELLOWNormalYELLOWThe [facility] CenterComment on above:Performed By: #### CVDTBH #### [facility] [address] [place] [address] Dr. Grace Schmidt micrscopic examination will be performed if indicated. NormalMercy Health Springfield Regional Medical CenterComment on above:Performed By: #### CVDTBH #### [facility] [address] [place] [address] Dr. Grace Gilose Ql (U)NegativeNormalNEGATIVEMercy Health Springfield Regional Medical CenterComment on above:Performed By: #### CVDTBH #### [facility] [address] [address] [address] Grace AbdulHemoglobin Ql (U)SMALLAbnormctNEGProMedica Memorial Hospital Comment on above:Performed By: #### CVDTBH #### [facility] [address] [address] [address] Grace AbdulKetones Ql (U)40 mg/dlAbnowakemed north hospitalNEGProMedica Memorial Hospital Comment on above:Performed By: #### CVDTBH #### [facility] [address] [place] [address] Dr. Grace BabbOCYTESSMALLAbnormalNEGATIVEMercy Health [facility] Regional Medical CenterComment on above:Performed By: #### CVDTBH #### [facility] [address] [place] [address] Dr. Grace AbdulNitrite Ql (U)NegativeNormalNEGATIVEMercy Health Springfield Regional Medical CenterComment on above:Performed By: #### CVDTBH #### [facility] [address] [place] [address] Dr. Grace AbdulpH (U)7.0 [pH]Normal5-9[facility] CenterComment on above: Performed By: #### CVDTBH #### [facility] [address] [place] [address] Dr. Grace AdbulSPEC GRAVITY1.036Eownct9.005-<=1.025The [facility] CenterComment on above:Performed By: #### CVDTBH #### [facility] [address] [place] [address] Dr. Grace Cespedes PROTEINNegativeNormalNEGATIVE/ TRACEMercy Health [facility] Comment on above:Performed By: #### CVDTBH #### [facility] [address] [place] [address] Dr. Grace Triplett MICRO INDINDICATEDNoalThGerman HospitalComment on above: Performed By: #### CVDTBH #### [facility] [address] [place] [address] Dr. Grace AbdulUrobilinogen Qn (U)0.2 {Ashley'U}/dLNormal0.2 - 1.0The [facility] CenterComment on above:Performed By: #### CVDTBH #### [facility] [address] [address] [address] Grace AbdulMAGNESIUMon 65-20-3898Hzwqdryns [Mass/Vol]1.8 mg/dLNormal1.8-2.4 The [facility] CenterComment on above:Performed By: #### CVDTBH #### [facility] [address] [place] [address] Dr. Grace AbdulPROF CHEM 8 (BAS METB)on 63-31-5639Jarwk gap [Moles/Vol]12.7 mmol/LNormalThe [facility] CenterComment on above:Performed By: #### BMP #### [facility] [address] [place] [address] Dr. Grace AbdulCalcium [Mass/Vol]8.3 mg/dLCritically low8.5-10.1The [facility] CenterComment on above:Performed By: #### BMP #### [facility] [address] [place] [address] Dr. Grace AbdulCO2 [Moles/Vol]24.4 mmol/LMwfhmt52.0-32.0The [facility] Comment on above:Performed By: #### BMP #### [facility] [address] [place] [address] Dr. Grace AbdulCreatinine [Mass/Vol]1.16 mg/dLCritically high0.55-1.02The [facility] CenterComment on above:Performed By: #### BMP #### [facility] [address] [place] [address] Dr. Grace RichardGFR-AF OTXYNTCI59 mL/min/1.65t2Mmyeofvavf low>=60The [facility] CenterComment on above:Performed By: #### BMP #### [facility] [address] [place] [address] Dr. Grace RichardGFR-NON AF RHABPPRN81 mL/min/1.69j6Uourizhvqs low>=60The [facility] HospitalComment on above:Performed By: #### BMP #### [facility] [address] [address] [address] Grace AbdulGlucose [Mass/Vol]116 mg/dLCritically vbaj48-758Kku [facility] CenterComment on above:Performed By: #### BMP #### [facility] [address] [address] [address] Grace AbdulUrea nitrogen [Mass/Vol]20.0 mg/dLCritically high7.0-18.0The [facility] CenterComment on above:Performed By: #### BMP #### [facility] [address] [address] [address] Grace Bernal nitrogen/Creatinine [Mass ratio]17.2 mg/mgNormalThe [facility] CenterComment on above:Performed By: #### BMP #### [facility] [address] [address] [address] Grace Kauffmanon gap [Moles/Vol]10.0 mmol/LNormalMercy Health [facility] Comment on above:Performed By: #### BMP #### [facility] [address] [address] [address] Grace AbdulCalcium [Mass/Vol]8.8 mg/dLNormal8.5-10.1The [facility] Comment on above:Performed By: #### BMP #### [facility] [address] [address] [address] Grace AbdulChloride [Moles/Vol]96 mmol/LCritically nvp36-952Kyk [facility] CenterComment on above:Performed By: #### BMP #### [facility] [address] [address] [address] Grace AbdulCO2 [Moles/Vol]26.1 mmol/SIpsskv67.0-32.0The [facility] Comment on above:Performed By: #### BMP #### [facility] [address] [address] [address] Grace AbdulCreatinine [Mass/Vol]1.11 mg/dLCritically high0.55-1.02The [facility] HospitalComment on above:Performed By: #### BMP #### [facility] [address] [address] [address] Grace RichardGFR-AF RGSWAPHP52 mL/min/1.61y3Skhonaudbk low>=60The [facility] CenterComment on above:Performed By: #### BMP #### [facility] [address] [address] [address] Grace RichardGFR-NON AF UMAHABDI56 mL/min/1.26p7Xptcvmyyep low>=60The [facility] CenterComment on above:Performed By: #### BMP #### [facility] [address] [address] [address] Grace AbdulGlucose [Mass/Vol]94 mg/qDHxoxvs41-579Ibj [facility] Comment on above:Performed By: #### BMP #### [facility] [address] [address] [address] Grace AbdulPotassium [Moles/Vol]3.1 mmol/LCritically low3.5-5.1The [facility] Centerment on above:Performed By: #### BMP #### [facility] [address] [address] [address] Grace AbdulPerformed By: #### CVDTBH #### [facility] [address] [address] [address] Grace AbdulSodium [Moles/Vol]129 mmol/LCritically nbe020-810Utk [facility] CenterComment on above:Performed By: #### BMP #### [facility] [address] [address] [address] Grace AbdulUrea nitrogen [Mass/Vol]16.0 mg/dLNormal7.0-18.0The [facility] CenterComment on above:Performed By: #### BMP #### [facility] [address] [address] [address] Grace Bernal nitrogen/Creatinine [Mass ratio]14.4 mg/mgNormalThe [facility] CenterComment on above:Performed By: #### BMP #### [facility] [address] [address] [address] Grace Mosley gap [Moles/Vol]12.6 mmol/LNormalThe [facility] Comment on above:Performed By: #### CVDTBH #### [facility] [address] [place] [address] Dr. Grace AbdulCalcium [Mass/Vol]8.6 mg/dLNormal8.5-10.1The [facility] Comment on above:Performed By: #### CVDTBH #### [facility] [address] [place] [address] Dr. Grace AbdulChloride [Moles/Vol]95 mmol/LCritically qdq49-894Svk [facility] CenterComment on above:Performed By: #### BMP #### [facility] [address] [place] [address] Dr. Grace AbdulPerformed By: #### CVDTBH #### [facility] [address] [place] [address] Dr. Grace AbdulCO2 [Moles/Vol]22.5 mmol/BGqdaov56.0-32.0The [facility] Comment on above:Performed By: #### CVDTBH #### [facility] [address] [place] [address] Dr. Grace AbdulCreatinine [Mass/Vol]0.95 mg/dLNormal0.55-1.02The [facility] CenterComment on above:Performed By: #### CVDTBH #### [facility] [address] [place] [address] Dr. Grace RichardGFR-AF BELGIAN>60Normal>=60The [facility] CenterComment on above:Performed By: #### CVDTBH #### [facility] [address] [place] [address] Dr. Grace RichardGFR-NON AF SQKVNBIB13 mL/min/1.01p7Lkbpaawkco low>=60The [facility] CenterComment on above:Performed By: #### CVDTBH #### [facility] [address] [place] [address] Dr. Grace AbdulGlucose [Mass/Vol]92 mg/qNYyavul73-980Idj [facility] Comment on above:Performed By: #### CVDTBH #### [facility] [address] [address] [address] Grace Kaurum [Moles/Vol]127 mmol/LCritically urk658-310Tvp [facility] CenterComment on above:Performed By: #### CVDTBH #### [facility] [address] [address] [address] Grace Bernal nitrogen [Mass/Vol]18.0 mg/dLNormal7.0-18.0The [facility] CenterComment on above:Performed By: #### CVDTBH #### [facility] [address] [address] [address] Grace Bernal nitrogen/Creatinine [Mass ratio]18.9 mg/mgNoMarion HospitalComment on above:Performed By: #### CVDTBH #### [facility] [address] [place] [address] Dr. Grace Marcos MICROSCOPIC ONLYon 95-30-1357DKNWLKGAUENUVGrujuucbYOVB SEEN The [facility] CenterComment on above:Performed By: #### CVDTBH #### [facility] [address] [place] [address] Dr. Grace Bella identified Cx Nom (U)INDICATEDNoMarion HospitalComment on above:Performed By: #### CVDTBH #### [facility] [address] [address] [address] Grace Alexandra SEENNormalNONE SEENMercy Health Springfield Regional Medical CenterComment on above:Performed By: #### CVDTBH #### [facility] [address] [address] [address] Grace Sood LM Nom (Urine sed)NONE SEENNormalNONE SEENMercy Health Springfield Regional Medical CenterComselect specialty hospital on above:Performed By: #### CVDTBH #### [facility] [address] [place] [address] Dr. Edwards ChangEpithelial cells LM Ql (Urine sed)FEWAbnormalNONE SEEN /RAREThe [facility] CenterComment on above:Performed By: #### CVDTBH #### [facility] [address] [place] [address] Dr. Grace SnatosCOUSVIKKI SEENNormalNONE SEENThe [facility] CenterComment on above:Performed By: #### CVDTBH #### [facility] [address] [place] [address] Dr. Grace AbdulCgtquBXB3-1Hkxjuykm3-0Nod [facility] CenterComment on above:Performed By: #### CVDTBH #### [facility] [address] [place] [address] Dr. Grace AbdulWBC5-10AbnormalNONE SEENThe [facility] CenterComment on above: Performed By: #### CVDTBH #### [facility] [address] [place] [address] Dr. Grace AbdulAMYLASEon 22-86-2045Bvlujhq [Catalytic activity/Vol]94 U/LNormal 25-115The [facility] CenterComment on above:Performed By: #### CVDTBH #### [facility] [address] [place] [address] Dr. Grace Arndt 47-73-5819Dqshuarupsb peptide B (Bld) [Mass/Vol]357.0 pg/mL Normal<=1,800.0The [facility] Centerment on above:Performed By: #### CVDTBH #### [facility] [address] [place] [address] Dr. Grace Oreilly JOVITA ADMITon 14-89-0583TM [Catalytic activity/Vol]66 U/L Kzfvjm59-522Iyp [facility] CenterComment on above:Performed By: #### CVDTBH #### [facility] [address] [place] [address] Dr. Grace Dawn.MB [Mass/Vol]2.19 ng/mLNormal<=3.60The [facility] on above:Performed By: #### CVDTBH #### [facility] [address] [place] [address] Dr. Grace DaoTROP9.5 pg/mLNormal4.0-51.3The [facility] Centerment on above:Result Comment: CUT-OFF POINTS HAVE BEEN ESTABLISHED BASED ON THE FOURTH UNIVERSAL DEFINITIONS OF MYOCARDIAL INFARCTION. THE UPPER REFERENCE LIMIT (URL) OF TROPONIN, DEFINED THE 99TH PERCENTILE OF cTnI DISTRIBUTION IN A REFERENCE POPULATION, HAS BEEN CONFIRMED THE DECISION THRESHOLD FOR SC DIAGNOSIS.Performed By: #### CVDTBH #### [facility] [address] [place] [address] Dr. Grace Woods73 ng/mLNormal9-82The [facility] CenterComment on above: Performed By: #### CVDTBH #### [facility] [address] [place] [address] Dr. Grace Casey AUTO DIFFon 36-71-0275QELM #0.0 103/ulNormal0.0-0.1The [facility] Centerment on above:Performed By: #### BMP #### [facility] [address] [place] [address] Dr. Grace AbdulBasophils/100 WBC (Bld)0.1 %Critically low0.2-2.0The [facility] CenterComment on above:Performed By: #### BMP #### [facility] [address] [place] [address] Dr. Grace Blunt #0.0 103/ulNormal0.0-0.7The [facility] CenterComselect specialty hospital on above: Performed By: #### BMP #### [facility] [address] [place] [address] Dr. Grace Richardosinophils/100 WBC (Bld)0.1 %Critically low0.9-7.0The [facility] Centerment on above:Performed By: #### BMP #### [facility] [address] [place] [address] Dr. Grace Richardrythrocyte distribution width (RBC) [Ratio]11.9 %Wpnysk06.0-15.0 The [facility] Centerment on above:Performed By: #### BMP #### [facility] [address] [address] [address] Grace AbdulHematocrit (Bld) [Volume fraction]36.6 %Xqsmok81.0-48.0The [facility] CenterComment on above:Performed By: #### BMP #### [facility] [address] [place] [address] Dr. Grace AbdulHemoglobin (Bld) [Mass/Vol]13.2 g/kVDzccqi44.0-16.0The [facility] CenterComment on above:Performed By: #### BMP #### [facility] [address] [place] [address] Dr. Grace AbdulIG #0.05 10e3/ulCritically high0.00-0.03The [facility] Comment on above:Performed By: #### BMP #### [facility] [address] [place] [address] Dr. Grace AbdulIG %0.7 %Critically high0.0-0.5The [facility] CenterComment on above:Performed By: #### BMP #### [facility] [address] [address] [address] Grace Hamilton #0.7 103/ulCritically low1.2-3.8The [facility] Comment on above:Performed By: #### BMP #### [facility] [address] [place] [address] Dr. Grace Hillmphocytes/100 WBC (Bld)9.8 %Critically low20.5-60.0The [facility] CenterComment on above:Performed By: #### BMP #### [facility] [address] [place] [address] Dr. Grace AbdulMANUAL DIFF REQNONormalThe [facility] CenterComment on above: Performed By: #### BMP #### [facility] [address] [place] [address] Dr. Grace Joy (RBC) [Entitic mass]31.5 anGwodzd24.7-34.0The [facility] CenterComment on above:Performed By: #### BMP #### [facility] [address] [address] [address] Grace PerdomoHC (RBC) [Mass/Vol]36.1 g/dLCritically high29.9-35.2The [facility] CenterComment on above:Performed By: #### BMP #### [facility] [address] [place] [address] Dr. Grace PerdomoV (RBC) [Entitic vol]87.4 kZKdqmji47.0-99.0The [facility] CenterComment on above:Performed By: #### BMP #### [facility] [address] [place] [address] Dr. Grace Barrios #0.9 103/ulCritically high0.3-0.8The [facility] Comment on above:Performed By: #### BMP #### [facility] [address] [place] [address] Dr. Grace Riderocytes/100 WBC (Bld)12.4 %Critically high1.7-12.0The [facility] CenterComment on above:Performed By: #### BMP #### [facility] [address] [place] [address] Dr. Grace Brar #5.8 103/ulNormal1.4-6.5The [facility] CenterComment on above:Performed By: #### BMP #### [facility] [address] [place] [address] Dr. Grace Solitarioutrophils/100 WBC (Bld)76.9 %Critically high43.0-75.0The [facility] CenterComment on above:Performed By: #### BMP #### [facility] [address] [place] [address] Dr. Grace Stokeslet mean volume (Bld) [Entitic vol]9.0 fLCritically low 9.5-13.5The [facility] CenterComment on above:Performed By: #### BMP #### [facility] [address] [place] [address] Dr. Grace AbdulPLT361 103/mxGxeneo286-598Ifo [facility] CenterComment on above: Performed By: #### BMP #### [facility] [address] [place] [address] Dr. Grace AbdulRBC4.19 106/ulCritically low4.20-5.40The [facility] CenterComment on above:Performed By: #### BMP #### [facility] [address] [place] [address] Dr. Grace AbdulWBC7.6 103/ulNormal4.0-11.0The [facility] CenterComment on above: Performed By: #### BMP #### [facility] [address] [place] [address] Dr. Grace AbdulCovid-19 PCR (CVDTB)on 51-75-1928XUIB-CoV-2 (COVID-19) RNA LUISITO+probe Ql (Unsp spec)Not detectedNormalNOT [...] for this test is supported by the [place] of Health and Human Service's declaration that [...] #### CVDTBH #### [facility] [address] [place] [address] Dr. Grace AbdulLIPASEon 67-50-3360Cdkmpc [Catalytic activity/Vol]178.0 U/LNormal 73.0-393.0The [facility] CenterComment on above:Performed By: #### CVDTBH #### [facility] [address] [place] [address] Dr. Grace ArmendarizF 14(COMP METB)on 63-16-5616Oiszcmd [Mass/Vol]4.1 g/dLNormal 3.4-5.0The [facility] CenterComment on above:Performed By: #### CVDTBH #### [facility] [address] [address] [address] Grace AbdulAlbumin/Globulin [Mass ratio]1.2 {ratio}NormalThe [facility] CenterComment on above:Performed By: #### CVDTBH #### [facility] [address] [address] [address] Grace Wilcox [Catalytic activity/Vol]63 U/YHrgltv47-840Jhi [facility] CenterComment on above:Performed By: #### CVDTBH #### [facility] [address] [address] [address] Grace CalderonT [Catalytic activity/Vol]29 U/XHszdlj98-30Dwg [facility] CenterComment on above:Performed By: #### CVDTBH #### [facility] [address] [address] [address] Grace Mosley gap [Moles/Vol]14.8 mmol/LNormalThe [facility] Comment on above:Performed By: #### CVDTBH #### [facility] [address] [address] [address] Grace AbdulAST [Catalytic activity/Vol]25 U/GEzdjmq26-69Let [facility] CenterComment on above:Performed By: #### CVDTBH #### [facility] [address] [address] [address] Grace AbdulBilirubin [Mass/Vol]0.6 mg/dLNormal0.2-1.0The [facility] Comment on above:Performed By: #### CVDTBH #### [facility] [address] [address] [address] Grace AbdulCalcium [Mass/Vol]9.4 mg/dLNormal8.5-10.1[facility] Comment on above:Performed By: #### CVDTBH #### [facility] [address] [address] [address] Grace AbdulChloride [Moles/Vol]83 mmol/LCritically pao48-256Gep [facility] CenterComment on above:Performed By: #### CVDTBH #### [facility] [address] [address] [address] Grace AbdulCO2 [Moles/Vol]24.4 mmol/QRivzuo47.0-32.0The [facility] Comment on above:Performed By: #### CVDTBH #### [facility] [address] [address] [address] Grace AbdulCreatinine [Mass/Vol]1.15 mg/dLCritically high0.55-1.02The [facility] CenterComment on above:Performed By: #### CVDTBH #### [facility] [address] [place] [address] Dr. Edwards ChangEGFR-AF QDJERTIL07 mL/min/1.34x9Uurxfzkkzg low>=60The [facility] CenterComment on above:Performed By: #### CVDTBH #### [facility] [address] [address] [address] Grace RichardGFR-NON AF UKLGRXZE80 mL/min/1.45x2Lofzsevzqn low>=60The [facility] CenterComment on above:Performed By: #### CVDTBH #### [facility] [address] [address] [address] Grace AbdulGlobulin (S) [Mass/Vol]3.4 g/dLNormalThe [facility] CenterComment on above:Performed By: #### CVDTBH #### [facility] [address] [address] [address] Grace AbdulGlucose [Mass/Vol]147 mg/dLCritically wjbk23-797Hqh [facility] CenterComment on above:Performed By: #### CVDTBH #### [facility] [address] [place] [address] Dr. Grace AbdulPotassium [Moles/Vol]3.2 mmol/LCritically low3.5-5.1The [facility] CenterComment on above:Performed By: #### CVDTBH #### [facility] [address] [address] [address] Grace AbdulProtein [Mass/Vol]7.5 g/dLNormal6.4-8.2The [facility] Comment on above:Performed By: #### CVDTBH #### [facility] [address] [address] [address] Grace AbdulUrea nitrogen/Creatinine [Mass ratio]21.7 mg/mgNormalThe [facility] CenterComment on above:Performed By: #### CVDTBH #### [facility] [address] [place] [address] Dr. Grace AbdulPROF CHEM 8 (BAS METB)on 10-72-4794Tkhoj gap [Moles/Vol]13.6 mmol/LNormalThe [facility] CenterComment on above:Performed By: #### CVDTBH #### [facility] [address] [place] [address] Dr. Grace AbdulCalcium [Mass/Vol]8.8 mg/dLNormal8.5-10.1[facility] Comment on above:Performed By: #### CVDTBH #### [facility] [address] [place] [address] Dr. Grace AbdulChloride [Moles/Vol]88 mmol/LCritically ahz30-357OqaMercy Health Springfield Regional Medical CenterComment on above:Performed By: #### CVDTBH #### [facility] [address] [place] [address] Dr. Grace AbdulCO2 [Moles/Vol]21.8 mmol/LZtfoql69.0-32.0The [facility] Comment on above:Performed By: #### CVDTBH #### [facility] [address] [place] [address] Dr. Grace AbdulCreatinine [Mass/Vol]1.11 mg/dLCritically high0.55-1.02[facility] CenterComment on above:Performed By: #### CVDTBH #### [facility] [address] [address] [address] Edwards ChangEGFR-AF BZJSLPKS92 mL/min/1.52h9Wsylgokrrq low>=60The [facility] CenterComment on above:Performed By: #### CVDTBH #### [facility] [address] [address] [address] Grace RichardGFR-NON AF TFBUGPCE86 mL/min/1.90n8Gjjkgeunyc low>=60The [facility] CenterComment on above:Performed By: #### CVDTBH #### [facility] [address] [place] [address] Dr. Grace AbdulGlucose [Mass/Vol]132 mg/dLCritically kdhf93-191Zlj [facility] on above:Performed By: #### CVDTBH #### [facility] [address] [place] [address] Dr. Grace AbdulPotassium [Moles/Vol]3.4 mmol/LCritically low3.5-5.1The [facility] CenterComment on above:Performed By: #### CVDTBH #### [facility] [address] [place] [address] Dr. Grace AbdulSodium [Moles/Vol]120 mmol/LCritically hju376-935Yqa [facility] on above:Result Comment: Test Repeated. Critical Value Verified Performed By: #### CVDTBH #### [facility] [address] [place] [address] Dr. Grace AbdulUrea nitrogen [Mass/Vol]25.0 mg/dLCritically high7.0-18.0The [facility]ment on above:Performed By: #### CVDTBH #### [facility] [address] [place] [address] Dr. Grace AbdulUrea nitrogen/Creatinine [Mass ratio]22.5 mg/mgNormalThe [facility] CenterComselect specialty hospital on above:Performed By: #### CVDTBH #### [facility] [address] [place] [address] Dr. Grace AbdulPROTIMEjustina 96-84-0457VPT Coag (PPP) [Relative time]0.94 {INR} NormalParkview Health Montpelier Hospitalment on above:Performed By: #### CVDTBH #### [facility] [address] [address] [address] Grace KellyR GUIDELINESSEE [facility] Medical CenterComment on above:Result Comment: DESIRED INR: 2.0 - 3.0 CONDITIONS NOT LISTED BELOW 2.5 - 3.5 FOR PROSTHETIC HEART VALVE REPLACEMENT 2.5 - 3.5 RECURRENT THROMBOSIS Performed By: #### CVDTBH #### [facility] [address] [id number] Grace AbdulPT Coag (PPP) [Time]10.2 sNormal9.0-11.6The [facility] Comment on above:Performed By: #### CVDTBH #### [facility] [address] [address] [address] Grace AbdulXR ABD FLAT UP_PA Sergio 46-77-6567FG ABD FLAT UP_PA CHX-RAY ABDOMINAL WITH CHEST. [...] Electronically authenticated by: JARET LINARES Date: 2021-11-15 13:[address] [place], [place] [address]BNPon 82-93-8452Sfnbibngxbm peptide B (Bld) [Mass/Vol]546.0 pg/mLNormal<=1,800.0The [facility] on above:Performed By: #### CMP, TSH, HSTROPN, BNP ####[facility] [address] [place], [place] [address]MvDr. Grace Casey AUTO DIFFon 69-62-3900INGI #0.0 103/ulNormal0.0-0.1The [facility] HospitalComment on above:Performed By: #### CBC #### [facility] [address] [place] [address] Dr. Grace AbdulBasophils/100 WBC (Bld)0.3 %Normal0.2-2.0The [facility] on above:Performed By: #### CBC #### [facility] [address] [place] [address] Dr. Grace Blunt #0.0 103/ulNormal0.0-0.7The [facility] CenterComment on above: Performed By: #### CBC #### [facility] [address] [place] [address] Dr. Grace Richardosinophils/100 WBC (Bld)0.5 %Critically low0.9-7.0The [facility] CenterComment on above:Performed By: #### CBC #### [facility] [address] [place] [address] Dr. Grace Richardrythrocyte distribution width (RBC) [Ratio]12.9 %Eysrnn67.0-15.0 The [facility] CenterComment on above:Performed By: #### CBC #### [facility] [address] [place] [address] Dr. Grace AbdulHematocrit (Bld) [Volume fraction]36.1 %Ndujvz95.0-48.0The [facility] CenterComment on above:Performed By: #### CBC #### [facility] [address] [place] [address] Dr. Grace AbdulHemoglobin (Bld) [Mass/Vol]12.3 g/pLQnhbja49.0-16.0The [facility] CenterComment on above:Performed By: #### CBC #### [facility] [address] [place] [address] Dr. Grace Son #0.01 10e3/ulNormal0.00-0.03The [facility] CenterComment on above:Performed By: #### CBC #### [facility] [address] [place] [address] Dr. Grace Sno %0.3 %Normal0.0-0.5The [facility] CenterComment on above: Performed By: #### CBC #### [facility] [address] [place] [address] Dr. Grace Hamilton #0.6 103/ulCritically low1.2-3.8The [facility] Comment on above:Performed By: #### CBC #### [facility] [address] [place] [address] Dr. Grace Willishocytes/100 WBC (Bld)14.8 %Critically low20.5-60.0The [facility] CenterComment on above:Performed By: #### CBC #### [facility] [address] [place] [address] Dr. Grace Gee DIFF REQNONormalThe [facility] CenterComment on above: Performed By: #### CBC #### [facility] [address] [place] [address] Dr. Grace Joy (RBC) [Entitic mass]31.5 cwKafnfi90.7-34.0The [facility] CenterComment on above:Performed By: #### CBC #### [facility] [address] [place] [address] Dr. Grace Perdomo (RBC) [Mass/Vol]34.1 g/aNVaesuz38.9-35.2The [facility] CenterComment on above:Performed By: #### CBC #### [facility] [address] [place] [address] Dr. Grace Serrano (RBC) [Entitic vol]92.6 fAWivkwv46.0-99.0The [facility] CenterComment on above:Performed By: #### CBC #### [facility] [address] [place] [address] Dr. Grace Barrios #0.5 103/ulNormal0.3-0.8The [facility] CenterComment on above:Performed By: #### CBC #### [facility] [address] [place] [address] Dr. Grace Riderocytes/100 WBC (Bld)13.5 %Critically high1.7-12.0The [facility] CenterComment on above:Performed By: #### CBC #### [facility] [address] [place] [address] Dr. Grace Brar #2.7 103/ulNormal1.4-6.5The [facility] CenterComment on above:Performed By: #### CBC #### [facility] [address] [place] [address] Dr. Grace Solitarioutrophils/100 WBC (Bld)70.6 %Bogiml87.0-75.0The [facility] CenterComment on above:Performed By: #### CBC #### [facility] [address] [place] [address] Dr. Grace AbdulPlatelet mean volume (Bld) [Entitic vol]9.2 fLCritically low 9.5-13.5The [facility] CenterComment on above:Performed By: #### CBC #### [facility] [address] [place] [address] Dr. Grace AbdulPLT279 103/omIwrmln648-066Xiz [facility] CenterComselect specialty hospital on above: Performed By: #### CBC #### [facility] [address] [place] [address] Dr. Grace AbdulRBC3.90 106/ulCritically low4.20-5.40The [facility] on above:Performed By: #### CBC #### [facility] [address] [place] [address] Dr. Grace AbdulWBC3.9 103/ulCritically low4.0-11.0The [facility] CenterComment on above:Performed By: #### CBC #### [facility] [address] [place] [address] Dr. Grace AbdulPROF 14(COMP METB)on 25-66-3634Nhvyvcb [Mass/Vol]3.3 g/dL Critically low3.4-5.0The [facility] CenterComment on above:Performed By: #### CMP, TSH, HSTROPN, BNP #### [facility] [address] [place] [address] Dr. Grace AbdulAlbumin/Globulin [Mass ratio]1.2 {ratio}NormalThe [facility] CenterComment on above:Performed By: #### CMP, TSH, HSTROPN, BNP #### [facility] [address] [place] [address] Dr. Grace CalderonP [Catalytic activity/Vol]60 U/UInzokn53-973Fxp [facility] CenterComment on above:Performed By: #### CMP, TSH, HSTROPN, BNP #### [facility] [address] [place] [address] Dr. Grace Restrepo [Catalytic activity/Vol]26 U/HXoqcml20-45Qmp [facility] CenterComment on above:Performed By: #### CMP, TSH, HSTROPN, BNP #### [facility] [address] [place] [address] Dr. Grace Kauffmanon gap [Moles/Vol]14.8 mmol/LNormalThe [facility] Comment on above:Performed By: #### CMP, TSH, HSTROPN, BNP #### [facility] [address] [place] [address] Dr. Grace AbdulAST [Catalytic activity/Vol]20 U/JVrgkkm09-35Dws [facility] Centerment on above:Performed By: #### CMP, TSH, HSTROPN, BNP #### [facility] [address] [place] [address] Dr. Grace AbdulBilirubin [Mass/Vol]0.3 mg/dLNormal0.2-1.0The [facility] Comment on above:Performed By: #### CMP, TSH, HSTROPN, BNP #### [facility] [address] [place] [address] Dr. Grace AbdulCalcium [Mass/Vol]8.2 mg/dLCritically low8.5-10.1The [facility] CenterComment on above:Performed By: #### CMP, TSH, HSTROPN, BNP #### [facility] [address] [place], [place] [id number] Dr. Grace AbdulChloride [Moles/Vol]100 mmol/HCqqkef68-656Uuj [facility] Comment on above:Performed By: #### CMP, TSH, HSTROPN, BNP #### [facility] [address] [place] [address] Dr. Grace AbdulCO2 [Moles/Vol]23.8 mmol/MVnhgwt77.0-32.0The [facility] Comment on above:Performed By: #### CMP, TSH, HSTROPN, BNP #### [facility] [address] [place] [address] Dr. Grace AbdulCreatinine [Mass/Vol]1.27 mg/dLCritically high0.55-1.02[facility] CenterComment on above:Performed By: #### CMP, TSH, HSTROPN, BNP #### [facility] [address] [place] [address] Dr. Grace RichardGFR-AF UJHLLQER65 mL/min/1.51d9Dgqjxokhmh low>=60The [facility] CenterComment on above:Performed By: #### CMP, TSH, HSTROPN, BNP #### [facility] [address] [place] [address] Dr. Grace Byrd-NON AF CNGECIAV70 mL/min/1.36d1Jieeqrhdzp low>=60The [facility] CenterComment on above:Performed By: #### CMP, TSH, HSTROPN, BNP #### [facility] [address] [place] [address] Dr. Grace AbdulGlobulin (S) [Mass/Vol]2.7 g/dLNormalThe [facility] CenterComment on above:Performed By: #### CMP, TSH, HSTROPN, BNP #### [facility] [address] [place] [address] Dr. Grace AbdulGlucose [Mass/Vol]116 mg/dLCritically mxbh16-707Wco [facility] CenterComment on above:Performed By: #### CMP, TSH, HSTROPN, BNP #### [facility] [address] [place] [address] Dr. Grace AbdulPotassium [Moles/Vol]3.6 mmol/LNormal3.5-5.1The [facility] Comment on above:Performed By: #### CMP, TSH, HSTROPN, BNP #### [facility] [address] [address] [address] Grace AbdulProtein [Mass/Vol]6.0 g/dLCritically low6.4-8.2The [facility] CenterComment on above:Performed By: #### CMP, TSH, HSTROPN, BNP #### [facility] [address] [address] [address] Grace AbdulSodium [Moles/Vol]135 mmol/LCritically zff621-954Hyp [facility] CenterComment on above:Performed By: #### CMP, TSH, HSTROPN, BNP #### [facility] [address] [place] [address] Dr. Grace AbdulUrea nitrogen [Mass/Vol]25.0 mg/dLCritically high7.0-18.0The [facility] CenterComment on above:Performed By: #### CMP, TSH, HSTROPN, BNP #### [facility] [address] [place] [address] Dr. Grace Bernal nitrogen/Creatinine [Mass ratio]19.7 mg/mgNoMarion HospitalComment on above:Performed By: #### CMP, TSH, HSTROPN, BNP #### [facility] [address] [place] [address] Dr. Grace AbdulPROTIMEjustina 17-23-8604OUO Coag (PPP) [Relative time]0.95 {INR} NormalThe [facility] CenterComment on above:Performed By: #### BMP #### [facility] [address] [place] [address] Dr. Grace Ayala GUIDELINESSEE BELOWAvita Health System Ontario HospitalComment on above:Result Comment: DESIRED INR: 2.0 - 3.0 CONDITIONS NOT LISTED BELOW 2.5 - 3.5 FOR PROSTHETIC HEART VALVE REPLACEMENT 2.5 - 3.5 RECURRENT THROMBOSIS Performed By: #### BMP #### [facility] [address] [place], [place] [address] Dr. Grace Robles Coag (PPP) [Time]10.3 sNormal9.0-11.6The [facility] Comment on above:Performed By: #### BMP #### [facility] [address] [place], [place] [address] Dr. Grace Villa 10-66-8939eWNH Coag (Bld) [Time]21.3 sCritically low 22.3-36.2The Uc Medical CenterComment on above:Performed By: #### BMP #### [facility] [address] [address] [address] Grace Bland HIGH SENSITIVITYon 75-08-5375WNHNDQ2.5 pg/mLNormal 4.0-51.3The [facility]c Medical CenterComment on above:Result Comment: CUT-OFF POINTS HAVE BEEN ESTABLISHED BASED ON THE FOURTH UNIVERSAL DEFINITIONS OF MYOCARDIAL INFARCTION. THE UPPER REFERENCE LIMIT (URL) OF TROPONIN, DEFINED THE 99TH PERCENTILE OF cTnI DISTRIBUTION IN A REFERENCE POPULATION, HAS BEEN CONFIRMED THE DECISION THRESHOLD FOR SC DIAGNOSIS.Performed By: #### CMP, TSH, HSTROPN, BNP #### [facility] [id number] Grace Vivas 65-62-6037GRU3.140 uIU/mLNormal0.358-3.740The [facility]c Medical CenterComment on above:Performed By: #### CMP, TSH, HSTROPN, BNP ####[facility] [address] [place], [place] [address]FlDr. Grace AbdulXR CHEST 1 Von 49-53-5930AP CHEST 1 VEXAMINATION: XR CHEST 1 V [...] Electronically authenticated by: KRANTHI CONNORS Date: 2021-11-11 13:34NoMarion HospitalCARDIAC JOVITA ADMITon 20-82-0769FT [Catalytic activity/Vol]89 U/UAjppmb73-155Tcy [facility] Medical CenterComment on above:Performed By: #### CVDTBH #### [facility] [address] [address] [address] Grace Dawn.MB [Mass/Vol]1.92 ng/mLNormal<=3.60[facility] Comment on above:Performed By: #### CVDTBH #### [facility] [address] [address] [address] Grace DaoTROP5.7 pg/mLNormal4.0-51.3The [facility] Medical CenterComment on above:Result Comment: CUT-OFF POINTS HAVE BEEN ESTABLISHED BASED ON THE FOURTH UNIVERSAL DEFINITIONS OF MYOCARDIAL INFARCTION. THE UPPER REFERENCE LIMIT (URL) OF TROPONIN, DEFINED THE 99TH PERCENTILE OF cTnI DISTRIBUTION IN A REFERENCE POPULATION, HAS BEEN CONFIRMED THE DECISION THRESHOLD FOR SC DIAGNOSIS.Performed By: #### CVDTBH #### [facility] [address] [address] [address] Grace Woods86 ng/mLCritically high9-82The [facility] Medical CenterComment on above:Performed By: #### CVDTBH #### [facility] [address] [address] [address] Grace Casey AUTO DIFFon 17-49-7275ITKB #0.0 103/ulNormal0.0-0.1The [facility]c Medical CenterComment on above:Performed By: #### CVDTBH #### [facility] [address] [address] [address] Grace AbdulBasophils/100 WBC (Bld)0.5 %Normal0.2-2.0[facility] Comment on above:Performed By: #### CVDTBH #### [facility] [address] [address] [address] Grace Blunt #0.0 103/ulNormal0.0-0.7The [facility] Medical CenterComment on above: Performed By: #### CVDTBH #### [facility] [address] [place] [address] Dr. Grace Richardosinophils/100 WBC (Bld)0.7 %Critically low0.9-7.0The [facility]c Medical CenterComment on above:Performed By: #### CVDTBH #### [facility] [address] [place] [address] Dr. Grace Richardrythrocyte distribution width (RBC) [Ratio]13.2 %Pwifyp22.0-15.0 The [facility]c Medical CenterComment on above:Performed By: #### CVDTBH #### [facility] [address] [place] [address] Dr. Grace AbdulHematocrit (Bld) [Volume fraction]34.8 %Critically low36.0-48.0 The [facility]c Medical CenterComment on above:Performed By: #### CVDTBH #### [facility] [address] [place] [address] Dr. Grace AbdulHemoglobin (Bld) [Mass/Vol]11.9 g/dLCritically low12.0-16.0The [facility] Medical CenterComment on above:Performed By: #### CVDTBH #### [facility] [address] [place] [address] Dr. Grace Son #0.01 10e3/ulNormal0.00-0.03The [facility]c Medical CenterComment on above:Performed By: #### CVDTBH #### [facility] [address] [place] [address] Dr. Grace Son %0.2 %Normal0.0-0.5The [facility]c Medical CenterComment on above: Performed By: #### CVDTBH #### [facility] [address] [place] [address] Dr. Grace WillisH #0.6 103/ulCritically low1.2-3.8The [facility] Comment on above:Performed By: #### CVDTBH #### [facility] [address] [place] [address] Dr. Grace Hillmphocytes/100 WBC (Bld)14.2 %Critically low20.5-60.0The [facility] Medical CenterComment on above:Performed By: #### CVDTBH #### [facility] [address] [place] [address] Dr. Grace FloresUAL DIFF REQNONormalThe [facility]c Medical CenterComment on above: Performed By: #### CVDTBH #### [facility] [address] [place] [address] Dr. Grace Perdomo (RBC) [Entitic mass]31.5 njLmlfwk66.7-34.0The [facility] Medical CenterComment on above:Performed By: #### CVDTBH #### [facility] [address] [place] [address] Dr. Grace Perdomo (RBC) [Mass/Vol]34.2 g/fXEfpbhy40.9-35.2The [facility] Medical CenterComment on above:Performed By: #### CVDTBH #### [facility] [address] [place] [address] Dr. Grace Perdomo (RBC) [Entitic vol]92.1 zCLoepnc54.0-99.0The [facility] Medical CenterComment on above:Performed By: #### CVDTBH #### [facility] [address] [place] [address] Dr. Grace Barrios #0.7 103/ulNormal0.3-0.8The [facility] Medical CenterComment on above:Performed By: #### CVDTBH #### [facility] [address] [place] [address] Dr. Grace Riderocytes/100 WBC (Bld)15.6 %Critically high1.7-12.0The [facility]c Medical CenterComment on above:Performed By: #### CVDTBH #### [facility] [address] [place] [address] Dr. Grace Brar #3.0 103/ulNormal1.4-6.5The [facility] Medical CenterComment on above:Performed By: #### CVDTBH #### [facility] [address] [place] [address] Dr. Grace Solitarioutrophils/100 WBC (Bld)68.8 %Tbshcg83.0-75.0The [facility] Medical CenterComment on above:Performed By: #### CVDTBH #### [facility] [address] [place] [address] Dr. Grace AbdulPlatelet mean volume (Bld) [Entitic vol]9.5 fLNormal9.5-13.5The [facility] Medical CenterComment on above:Performed By: #### CVDTBH #### [facility] [address] [place] [address] Dr. Grace AbdulPLT303 103/stFheuak476-835Jma [facility]c Medical CenterComment on above: Performed By: #### CVDTBH #### [facility] [address] [place] [address] Dr. Grace AbdulRBC3.78 106/ulCritically low4.20-5.40The [facility] Medical CenterComment on above:Performed By: #### CVDTBH #### [facility] [address] [place] [address] Dr. Grace AbdulWBC4.4 103/ulNormal4.0-11.0The [facility] Medical CenterComment on above: Performed By: #### CVDTBH #### [facility] [address] [place] [address] Dr. Grace AbdulCT HEAD WO CONon 97-17-9389ZD HEAD WO CONEXAMINATION: CT HEAD WO CON [...] right sphenoid sinus. Electronically authenticated by: KRANTHI CONONRS Date: 2021-09-13 13:24NoMarion HospitalCovid-19 PCR (CVDTBH)on 28-08-6880FRDU-CoV-2 (COVID-19) RNA LUISITO+probe Ql (Unsp spec)Not detectedNormalNOT DETECTEDMer[facility] Comment on above:Result Comment: When [...] for this test is supported by the Embedded Systems Developer of Health and Human Service's declaration that [...] #### CVDTBH #### [facility] [address] [place] [address] Dr. Edwards ChangEJimenez URINE PROFILEon 45-07-9724Kalgrfwsg Ql (U)NegativeNormal NEGATIVEMercy Health [facility] Regional Medical CenterComment on above:Performed By: #### BMP #### [facility] [address] [address] [address] Grace Phelps (U)CLEARNormalCLEARMercy Health Springfield Regional Medical CenterComment on above: Performed By: #### BMP #### [facility] [address] [place] [address] Dr. Grace Powell (U)LT. YELLOWNormalYELLOWMercy Health Springfield Regional Medical CenterComment on above:Performed By: #### BMP #### [facility] [address] [place] [address] Dr. Grace Schmidt micrscopic examination will be performed if indicated. NormalMercy Health Springfield Regional Medical CenterComment on above:Performed By: #### BMP #### [facility] [address] [address] [address] Grace AbdulGlucose Ql (U)NegativeNormalNEGATIVEMercy Health Springfield Regional Medical CenterComment on above:Performed By: #### BMP #### [facility] [address] [place] [address] Dr. Grace AbdulHemoglobin Ql (U)NegativeNormalNEGProMedica Memorial Hospital Comment on above:Performed By: #### BMP #### [facility] [address] [place] [address] Dr. Grace AbdulKetones Ql (U)TRACEAbnormalNEGATIVEMercy Health [facility] Regional Medical CenterComment on above:Performed By: #### BMP #### [facility] [address] [place] [address] Dr. Grace AbdulLEUKOCYTESTRACEAbnormalNEGATIVEMercy Health [facility] Medical CenterComment on above:Performed By: #### BMP #### [facility] [address] [place] [address] Dr. Grace AbdulNitrite Ql (U)NegativeNormalNEGATIVEMercy Health [facility] Medical CenterComment on above:Performed By: #### BMP #### [facility] [address] [place] [address] Dr. Grace AbdulpH (U)8.0 [pH]Normal5-9[facility] CenterComment on above: Performed By: #### BMP #### [facility] [address] [place] [address] Dr. Grace AbdulSPEC GRAVITY1.510Kvnzzw4.005-<=1.025[facility] CenterComment on above:Performed By: #### BMP #### [facility] [address] [place] [address] Dr. Grace AbdulUA PROTEINNegativeNormalNEGATIVE/ TRACEMercy Health [facility] Comment on above:Performed By: #### BMP #### [facility] [address] [place] [address] Dr. Grace Triplett MICRO INDINDICATEDNormalThe Uc Medical CenterComment on above: Performed By: #### BMP #### [facility] [address] [place] [address] Dr. Grace AbdulUrobilinogen Qn (U)0.2 {Ashley'U}/dLNormal0.2 - 1.0The [facility] Medical CenterComment on above:Performed By: #### BMP #### [facility] [address] [place] [address] Dr. Grace AbdulPROF 14(COMP METB)on 56-24-4341Ikhcplf [Mass/Vol]3.8 g/dLNormal 3.4-5.0The [facility] Medical CenterComment on above:Performed By: #### CVDTBH #### [facility] [address] [place] [address] Dr. Grace AbdulAlbumin/Globulin [Mass ratio]1.4 {ratio}NormalThe [facility] Medical CenterComment on above:Performed By: #### CVDTBH #### [facility] [address] [place] [address] Dr. Grace Wilcox [Catalytic activity/Vol]53 U/TVsmuqx75-709Rds [facility] Centerment on above:Performed By: #### CVDTBH #### [facility] [address] [place] [address] Dr. Grace Restrepo [Catalytic activity/Vol]20 U/XTtubhc21-51Uyu [facility] Health Centerment on above:Performed By: #### CVDTBH #### [facility] [address] [place] [address] Dr. Grace Mosley gap [Moles/Vol]12.0 mmol/LNormalThe [facility] on above:Performed By: #### CVDTBH #### [facility] [address] [place] [address] Dr. Grace Mortensen [Catalytic activity/Vol]18 U/NOfilnc65-81[facility] HospitalComment on above:Performed By: #### CVDTBH #### [facility] [address] [address] [address] Grace AbdulBilirubin [Mass/Vol]0.4 mg/dLNormal0.2-1.0[facility] Comment on above:Performed By: #### CVDTBH #### [facility] [address] [place] [address] Dr. Grace AbdulCalcium [Mass/Vol]9.5 mg/dLNormal8.5-10.1The [facility] Comment on above:Performed By: #### CVDTBH #### [facility] [address] [place] [address] Dr. Grace AbdulChloride [Moles/Vol]99 mmol/EUetoot42-902MwyMercy Health [facility] Comment on above:Performed By: #### CVDTBH #### [facility] [address] [place] [address] Dr. Grace AbdulCO2 [Moles/Vol]28.1 mmol/VFnktmv68.0-32.0The [facility] Comment on above:Performed By: #### CVDTBH #### [facility] [address] [place] [address] Dr. Grace AbdulCreatinine [Mass/Vol]1.25 mg/dLCritically high0.55-1.02The [facility] Medical CenterComment on above:Performed By: #### CVDTBH #### [facility] [address] [place] [address] Dr. Grace RichardGFR-AF VFCUJOQK46 mL/min/1.60p9Qopexhhsjk low>=60The [facility] Medical CenterComment on above:Performed By: #### CVDTBH #### [facility] [address] [place] [address] Dr. Grace RichardGFR-NON AF DLDZGNJL31 mL/min/1.68e7Fxpwretitx low>=60The [facility] Medical CenterComment on above:Performed By: #### CVDTBH #### [facility] [address] [place] [address] Dr. Grace AbdulGlobulin (S) [Mass/Vol]2.7 g/dLNoMarion HospitalComment on above:Performed By: #### CVDTBH #### [facility] [address] [place] [address] Dr. Grace AbdulGlucose [Mass/Vol]131 mg/dLCritically pzuu25-814Jee [facility] Medical CenterComment on above:Performed By: #### CVDTBH #### [facility] [address] [place] [address] Dr. Grace AbdulPotassium [Moles/Vol]4.1 mmol/LNormal3.5-5.1The [facility] Comment on above:Performed By: #### CVDTBH #### [facility] [address] [place] [address] Dr. Grace AbdulProtein [Mass/Vol]6.5 g/dLNormal6.4-8.2The [facility] Comment on above:Performed By: #### CVDTBH #### [facility] [address] [place] [address] Dr. Grace AbdulSodium [Moles/Vol]135 mmol/LCritically qww340-958Wqp [facility] CenterComment on above:Performed By: #### CVDTBH #### [facility] [address] [place] [address] Dr. Grace AbdulUrea nitrogen [Mass/Vol]33.0 mg/dLCritically high7.0-18.0The [facility] CenterComment on above:Performed By: #### CVDTBH #### [facility] [address] [place] [address] Dr. Grace AbdulUrea nitrogen/Creatinine [Mass ratio]26.4 mg/mgNoMarion HospitalComment on above:Performed By: #### CVDTBH #### [facility] [address] [place] [address] Dr. Grace AbdulURINE MICROSCOPIC ONLYon 68-59-7506EXKZVAROHYGH SEENNormalNONE SEENMercy Health [facility] Regional Medical CenterComment on above:Performed By: #### CBC #### [facility] [address] [place] [address] Dr. Grace Bella identified Cx Nom (U)NOT INDICATEDNoalThGerman HospitalComment on above:Performed By: #### CBC #### [facility] [address] [place] [address] Dr. Grace Alexandra SEENNormalNONE SEENMercy Health [facility] Regional Medical CenterComselect specialty hospital on above:Performed By: #### CBC #### [facility] [address] [place] [address] Dr. Grace Sood LM Nom (Urine sed)NONE SEENNormalNONE SEENThe [facility] Medical CenterComment on above:Performed By: #### CBC #### [facility] [address] [place] [address] Dr. Grace Goddardthelial cells LM Ql (Urine sed)FEWAbnormalNONE SEEN /RAREThe [facility] Medical CenterComment on above:Performed By: #### CBC #### [facility] [address] [place] [address] Dr. Grace Snyder SEENNormalNONE SEENMercy Health Springfield Regional Medical CenterComselect specialty hospital on above:Performed By: #### CBC #### [facility] [address] [place] [address] Dr. Grace MontoyaUoutvULX8-9Xkctow5-2Ble [facility] CenterComselect specialty hospital on above:Performed By: #### CBC #### [facility] [address] [place] [address] Dr. Grace AbdulWBC0-2AbnormalNONE SEENMercy Health Springfield Regional Medical CenterComment on above: Performed By: #### CBC #### [facility] [address] [place] [address] Dr. Grace AbdulXR CHEST 1 Von 43-09-4340LZ CHEST 1 VEXAMINATION: XR CHEST 1 V [...] by: KRANTHI CONNORS Date: 2021-09-13 13:19[facility] HospitalCERV SP W/OBLS/FLEX/EXT 6 OR >on 46-60-1802WADI SP W/OBLS/FLEX/EXT 6 OR >STUDY: CERV SP W/OBLS/FLEX/EXT 6 OR >; 12/12/2020 9:40 am INDICATION: NECK PAIN. COMPARISON: None. ACCESSION NUMBER(S): [id number] ORDERING CLINICIAN: Aiden Younger TECHNIQUE: AP, lateral, [...] acute findings. Dense left carotid artery calcifications.NormalSt. San Luis Rey Hospital Vital Signs Date TimeVital SignValuePerforming KdcdgkgqpBsffttpg85-42-9463 11:32-0400Body .3 cmArmando Thayer DO Work Phone: [facility] Tnvvatekdy52-03-1661 11:32-0400Body mass index (BMI) [Ratio]34.28 kg/u6Uophhhamario Thayer DO Work Phone: noNH Ftrkcarwyo98-40-2855 11:32-0400Body qljafw73.39 kgArmando Thayer DO Work Phone: noSaint John's HospitalCpjxckizha69-00-4926 11:32-0400Diastolic blood qaxkdyrl38 mm[Hg]Armando Pattersoner DO Work Phone: [facility] HospitalJsqkmyesyu16-11-7630 11:32-0400Systolic blood mm[Hg]Armando Thayer DO Work Phone: [facility] HospitalEuwtvhldcc56-85-1022 12:51-0400Diastolic blood xgayrsmq91 mm[Hg]Carolyn Vanegas MD Work Phone: [facility]08-01-2023 12:51-0400Heart rate67 /min Carolyn Vanegas MD Work Phone: [facility]08-01-2023 12:51-0400Systolic blood vuiryeps450 mm[Hg]Carolyn Vanegas MD Work Phone: [facility]03-24-2023 14:24-0400Diastolic blood sjwxwsli42 mm[Hg]Marty Dozier DO Work Phone: [facility]03-24-2023 14:24-0400Heart rate72 /min Marty Dozier DO Work Phone: [facility]03-24-2023 14:24-0400Systolic blood shzkixzn807 mm[Hg]Marty Dozier DO Work Phone: [facility]03-24-2023 14:22-0400Body scwmso696.4 cmPhisofia Dozier DO Work Phone: [facility]03-24-2023 14:22-0400Body hpkido83.39 kgPhisofia Dozier DO Work Phone: [facility]03-24-2023 14:22-3681DaF4% (BldA) [Mass fraction]99 %Marty Dozier DO Work Phone: [facility] Encounters Encounter DateEncounter TypeCare ProviderFacilityStart: 80-26-6631pzgbmrnpvc Jacinta TannaFacility:EU [place]Start: 11-14-2024 End: 04-63-4623vdehwkjgbmMsscbp TannaFacility:EU [place]Start: 11-14-2024 End: 93-92-7338Ijujcfg encounter procedureLauren Mercedes [facility] start: 10-10-2024 End: 69-98-0794wljfbugtyfPzzgt M. BillieKimacility:FTMCStart: 10-10-2024 End: 23-52-1123ylldmtdusdIodzq MLisette LueFacility:EU [place]vueStart: 10-10-2024 End: 30-46-6091Rtggkjs encounter Kira Calix [facility] [place] start: 10-01-2024 End: 38-93-5313njmchgttesKksloed Vytautas Giedraitis MDFacility:PM [place] Start: 42-24-5515iuocjpjcjfMniewq TannaFacility:EU [place]kyStart: 09-22-2024 End: 12-86-7711Sxhqiwh encounter procedureGalina Bach MD-Lab [facility] Work Phone: Start: 09-22-2024 End: 34-91-6620sbkkysrjsjLrcstny M [facility] Work Phone: Start: 06-18-2024 End: 26-75-5363sbajsldjkdSuvmyrm Vytautas Giedraitis MDFacility:PM [place] Start: 05-28-2024 End: 87-07-4631iqjruodlctRzdvqzn Vytautas Giedraitis MDFacility:PM [place] Start: 04-30-2024 End: 29-22-2264udetogkohwPzxvasu Vytautas Giedraitis MDFacility:PM [place] Start: 02-06-2024 End: 10-64-1595vhqfeakldqSdmuqiy Vytautas Giedraitis MDFacility:PM [place] Start: 01-16-2024 End: 67-75-5792wsclcidwxdLhzkjwz Vytautas Giedraitis MDFacility:PM [place] Start: 12-06-2023 End: 46-24-2274Skyylqi encounter procedureArmando Thayer DO Work Phone: [facility] OBComment on above:Encounter for gynecological examination without abnormal finding; Encounter for Papanicolaou smear of vagina; Breast cancer screening by mammogramStart: 12-06-2023 End: 18-91-6771Rnojmzg encounter statusArmando Thayer DO Work Phone: [facility] HealthcareStart: 12-06-2023 End: 22-46-2873dytdsczqdiNNTURDJ D BRUNERNot AvailableStart: 08-08-2023 End: 58-00-6085xpevsdaacgHZCOLETTE BRIGHT AvailableStart: 09-21-2022 End: 89-53-8180emapmdikfyINMRJID M HOYFacility:[facility] Hospitaltart: 09-21-2022 End: 13-41-3369Tbqkzrd encounter procedureCarolyn Vanegas MD Work Phone: NeurosurgeryComment on above:Obesity, Class I, BMI 30- 34.9 (Primary Dx); Spinal stenosis, lumbar region with neurogenic claudicationStart: 08-19-2022 Chart abstractingNone (Historical)NeurologyStart: 81-47-8281xbqumrufmh NARENDRANATH LAKSHMIPATHY .Facility:U7Mdxdf: 07-16-2022 End: 34-51-4375jbziorusosGH GALINA PALMER .Facility:X3Rhfya: 06-22-2022 End: 89-35-6283zaqsjdaabnUYQILZMLAXIX LAKSHMIPATHY .Facility:K3Lidgr: 06-15-2022 End: 17-38-1670lkrauspehwPNGMUMEDRXRC LAKSHMIPATHY .Facility:P9Fywgk: 06-10-2022 ambulatoryDR GALINA PALMER .Facility:X6Txcnh: 06-01-2022 End: 38-36-7751topmlvqgmnIYTRACOZSRJC LAKSHMIPATHY .Facility:U7Fyjvg: 05-14-2022 End: 10-18-4183qzblzmyjivJUQLSXW G MENDISFacility:[facility] Start: 05-14-2022 End: 17-77-9839Pjjohcv encounter procedurePhisofia Dozier DO Work Phone: [facility] MedicineComment on above: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); Back pain, lumbosacral; Chronic sacroiliac joint pain; Lumbar spondylosis; Scoliosis of lumbar spine, unspecified scoliosis typeStart: 05-13-2022 End: 37-05-9311xssoditswwBRRFYQELZDZM LAKSHMIPATHY .Facility:Y4Xaptg: 04-13-2022 End: 75-03-0272mebcgpulzaJY NIKO S BECKWITH .Facility:S1Pmqlb: 04-06-2022 End: 09-74-8517gxqcbmvyauLH NIKO S BECKWITH .Facility:M4Jeuep: 04-05-2022 End: 89-26-7348kixxzpeyjuLC GALINA HOY .Facility:N5Podbu: 04-04-2022 End: 37-65-3092tpbqqtigfaEN MATTHEW MEYER .Facility:X6Cjecm: 03-11-2022 End: 40-49-7345ufzwedsoceLN GALINA HOY .Facility:P1Lcihu: 02-09-2022 End: 69-88-8390hqfhjxoxjzWK GALINA HOY .Facility:S2Acanx: 01-28-2022 End: 37-85-4758cjpwhjsyueSDMU SEQUEIRA .Facility:B2Rmicd: 01-12-2022 End: 38-21-5255qzbkbzujkdZI NIKO S BECKWITH .Facility:X0Qohcf: 12-31-2021 End: 64-62-2951gihvjlhneiQTQS SEQUEIRA .Facility:M6Hdflf: 68-58-4862mrutyzqybuGM GALINA HOY .Facility:S8Ozvyl: 12-11-2021 End: 00-25-7589ymnxxorjiwWM GALINA HOY .Facility:Z8Gsllj: 11-25-2021 End: 98-63-1482vlpggufltiZG GALINA HOY .Facility:C4Tmsxz: 11-24-2021 End: 63-88-4926gaalnynrdkPP GALINA HOY .Facility:B1Bsbft: 11-23-2021 End: 06-60-8711jrhwtvnnpkJL GALINA HOY .Facility:C9Kttpo: 11-15-2021 End: 62-08-2678Iprbrxvdjg and management of inpatientSBREANNA BERNALWADFacility:H1 Start: 11-11-2021 End: 69-56-1675cfaqqiwcdoCSJTLV RODRIGUEZ .Facility:N0Rbiyw: 09-30-2021 End: 65-06-3869xbsbsuakarBK NIKO BECKWITH .Facility:N4Lfbvz: 09-13-2021 End: 94-76-4291lrhzqxmevcSPVFSR RODRIGUEZ .Facility:V1Rhcqu: 09-12-2017 End: 43-30-4498Ylzfxxo encounterDEFAULT PHYSICIANFacility:[facility] Procedures DateProcedureProcedure DetailPerforming ClinicianAppendix absent (finding)Sharon Lue ArthroscopyKathy Lue Capsulotomy of posterior lens capsuleLauren Mercedes CholecystectomyLauren Mercedes HysterectomyKathy Lue Laboratory test result abnormalLaboratory test result abnormalKathy Lue Left breast structure (body structure)Sharon Lue Comment on above:benign tumorRight breast structure (body structure)Jacinta Mercedes TonsillectomyKathy Lue Total knee replacementLasera Mercedes Urinary bladder structure (body structure)Sharon Lue Plan of Treatment DateCare ActivityDetailAuthorStart: 12-10-2025 End: 16-71-2117Jfwgieu encounter qjwlengri03/20/2026 11:30 AM EDT Office Visit [facility] [address] [place] [id number] Armando Thayer, DO [address] [place] [address] [facility] SWS OBStart: 07-22-9992Yfsgpzwn identified in Urine by CultureUrine CultureCleveland Clinic Akron Generaltart: 26-06-8598Oxkbw cultureCleveland Clinic Akron Generaltart: 94-60-1405Ymlvuwlih vaccination Influenza Vaccine (#1)[facility] HealthcareStart: 84-95-4722Mjovlxqvj vaccination INFLUENZA (#1)[facility] Centertart: 27-99-4401XUNYI-19 VACCINE (6 - Moderna series)COVID-19 VACCINE (6 - Moderna series)[facility] Centertart: 02-21-2022 ADVANCE DIRECTIVE DISCUSSIONADVANCE DIRECTIVE DISCUSSIONOhioHealth Arthur G.[facility]. [facility], MD, Cancer Centertart: 53-53-1100ZTNEJXRTYV ASSESSMENTDEPRESSION ASSESSMENTOhioHealth Arthur G.[facility], MD, Cancer Centertart: 81-24-8770Subskyxovyqy Vaccine: 65+ Years (2 of 2 - PPSV23 or PCV20)Pneumococcal Vaccine: 65+ Years (2 of 2 - PPSV23 or PCV20)[facility] PNEUMOCOCCAL: 65+ (2 - PPSV23 if available, else PCV20)PNEUMOCOCCAL: 65+ (2 - PPSV23 if available, else PCV20)[facility]ertart: [phone]: 65+ (2 - PPSV23 or PCV20)PNEUMOCOCCAL: 65+ (2 - PPSV23 or PCV20)[facility] Start: 99-46-3386BPHPOBFA VACCINE (2 of 3)SHINGRIX VACCINE (2 of 3)[facility] Centertart: [phone] DENSITYBONE DENSITYOhioHealth Arthur G.H. Bing, MD, Cancer Centertart: 04-30-1984 DIABETES SCREENDIABETES SCREENOhioHealth Arthur G.H. Bing, MD, Cancer Centertart: [phone] microalbumin profileDTAP,TDAP,TD (1 - Tdap)[facility] CompanyIGP,rfxAptima HPV all,16/18,45IGP,rfxAptima HPV all,16/18,45 Pathology and Cytology Routine Encounter for Papanicolaou smear of vagina Ordered: 12/06/2023[facility] Work Phone: comment on above:Ordered: 12/06/2023 Immunizations Immunization DateImmunizationNotesCare XvhtreupCgknizha60-60-0128ifotns vaccine recombinantLasera Cooleya [facility]06-02-2025tetanus toxoid, reduced diphtheria toxoid, and acellular pertussis vaccine, adsorbedLauren Mercedes [facility]10-14-2024influenza virus vaccine, unspecified formulationLauren Mercedes [facility]09-04-2023influenza virus vaccine, unspecified formulationLauren Mercedes [facility]08-12-2023SARS-CoV-2 (COVID-19) mRNAMUL.ORD!l11077Tliezy Tanna [facility] HospitalComselect specialty hospital on above:Result Comment: 2024-11-14: [id number] Bivalent Booster VaccinationWilliamyrna Thayer DO Work Phone: [facility]Com[facility] on above:Result Comment: 2024-11-14: [id number], injectable, Madin Carmina Canine Kidney, preservative free, quadrivalentPhillip Mendis DO Work Phone: [facility] CompanyQdsxet08-12-6010wslburwgo virus vaccine, unspecified formulationWilliam Flaca DO Work Phone: [facility]04-14-2022SARS-CoV-2 (COVID-19) mRNA-9706 vaccineLauren Mercedes [facility] on above:Result Comment: 2024-11-14: [id number]-OdU-1 (COVID-19) mRNA-1273 vaccineLauren Mercedes [facility]10-08-2021influenza virus vaccine, unspecified formulationPhillip Mendis DO Work Phone: [facility] CompanyVpfzcz62-74-7656tyvsefxhr, unspecified formulationLasera Cooleya [facility]02-15-2021SARS-CoV-2 (COVID-19) mRNA-1273 vaccineLasera Cooleya [facility]01-18-2021SARS-CoV-2 (COVID-19) mRNA-1276 vaccineLasera Cooleya [facility]10-08-2020influenza virus vaccine, unspecified formulationLasera Long [facility]10-08-2020Seasonal trivalent influenza vaccine, adjuvanted, preservative freePhillip Magee General Hospitalis DO Work Phone: [facility] CompanyIvxdbr49-32-1637eehyri vaccine, livePhillip [facility] Hospitalis DO Work Phone: [facility] CompanyFtwyyb59-73-4294rwylfjijygyn conjugate vaccine, 13 valentPhillip [facility] Hospitalis DO Work Phone: [facility] Payers DatePayer CategoryPayerPolicy [id number] Health [id number] 2005Medicare [id number] 2005Unknown1960Medicare [id number]-[id number] [id number] 2.16.840.1.164016.3.57[id number] 2.16.840.1.510702.3.57[id number] 2.16.840.1.898450.3.579.2.68000-82-5045Sggeklr3906364 2.16.840.1.612612.3.57[id number] 2.16.840.1.044236.3.579.2.25076-42-1285Egtccsr3666103 2.16.840.1.031756.3.579.2.26352-65-1803Euajuul6132718 2.16.840.1.524934.3.579.2.89046-04-5293Uwwbqzl4761095 2.16.840.1.305771.3.579.2.10422-56-9564Kxzblqx4816234 2.16.840.1.732036.3.579.2.75885-79-3509Gkbrzwu2400467 2.16.840.1.101727.3.579.2.26423-74-5793Ogoctji8381249 2.16.840.1.567944.3.579.2.15731-97-6523Zbwqblp7649762 2.16.840.1.207324.3.579.2.90969-69-0934Iymglis9781837 2.16.840.1.070397.3.579.2.31455-31-0382Dhgjdmj0622344 2.16.840.1.872466.3.579.2.59407-58-9463Kcomjvl0135761 2.16.840.1.138558.3.57[id number] 2.16.840.1.789582.3.579.2.38111-83-0004Ohhxodf8570849 2.16.840.1.452750.3.579.2.98641-79-8804Shpppap1611834 2.16.840.1.740688.3.579.2.24889-82-1335Mcrbtww1976232 2.16840.1.026581.3.579.2.43370-48-3465Vydmhqv8334050 2.16840.1.455799.3.579.2.83861-25-4266Banackv7099803 2.16840.1.573830.3.579.2.13450-64-5425Mzqgmgs5316169 2.16840.1.982340.3.579.2.90640-12-0944Asanhfd9225266 2.16.840.1.102211.3.579.2.55085-50-2309Rbgutcg2749738 2.16840.1.216082.3.579.2.53757-44-4493Uudvecv1600153 2.840.1.904211.3.579.2.69992-38-5955Atiktoc0709136 2.16.840.1.634358.3.579.2.949824-92-6396Eldsxkm2821165 2.16.840.1.411059.3.579.2.771103-32-2943Mtxczkx6662888 2.16.840.1.134148.3.579.2.997740-41-0842Fytumoc443524693 2.16.840.1.503816.3.579.2.94046-99-9560Hequyya498536140 2.16.840.1.150921.3.579.2.84290-56-9495Jjimdua026619223 2.16.840.1.005113.3.579.2.47315-93-5263Ylvclhl946876059 2.16.840.1.129775.3.579.2.90427-37-1582Bibnujn504408408 2.16.840.1.309174.3.579.2.40084-34-1285Hcwszyi528265687 2.16.840.1.392919.3.579.2.63926-53-3513Ruhmgdm06202643 2.16.840.1.369999.3.579.2.71335-85-5327Qldnnwk19956213 2.16.840.1.138637.3.579.2.34997-34-0713Xcveztx07041314 2.16.840.1.186907.3.579.2.27245-99-8457Lyakkam15145532 2.16.840.1.458214.3.579.2.62388-72-8423Igzwoch45443824 2..840.1.961303.3.579.2.48276-59-4642Roznkgi48248373 2.16.840.1.507046.3.579.2.409Ylinqlf11758880 2.840.1.030404.3.579.2.531 Social History DateTypeDetailFacilityStart: 05-14-2022 End: 49-85-8204Thxfqna smoking status NHISNever smoked tobaccoRegency Hospital Company Start: 05-14-2022 End: 45-52-5359Camawlf use and exposureSmokeless tobacco non-userOhioHealth Arthur G.H. Bing, MD, Cancer Centertart: 05-14-2022 End: 65-06-6176Nkeiqvr intakeLifetime non-drinker (finding)[facility] Start: 29-94-2981Czm Assigned At BirthNot on fileOhioHealth Arthur G.H. Bing, MD, Cancer Centertart: 09-21-2022 End: 44-64-0473Vkcdwrm of Social functionOhioHealth Arthur G.H. Bing, MD, Cancer Centertart: 09-21-2022 End: 17-51-6719Itpjjov use panelRegency Hospital CompanyAdult Depression Screening Nkgrjsgorc4Pgwpcxhjh ClinicHow often to you have a drink containing alcohol? NeverNOMS HealthcareTobacco smoking status NHISUnknown if ever smokedKettering Health Behavioral Medical Center Work Phone: Start: 91-78-9334UlxJxbcpw (finding)[facility] Generaltart: 77-97-6049Num Assigned At White Hospitalexual OrientationExec[facility] Clinical Notes 09-30-2021 to 11-14-2024 Note Date & VqugZzhuJgddiudz63-47-4269 Hospital Discharge instructions Patient Education 11/14/2024 16:17:11 [...] your health care provider. General instructions Take vrae-vxe-dygqweb and prescription medicines only as told by [...] provider. Document Revised: 10/27/2020 Document Reviewed: 10/27/2020 ElseToxic Attire Patient Education 2023 Semmle. Follow Up Care 10/10/2024 10:34:03 With:Jacinta Long PA-C, GREGG Address: When:Within 3 Month(s) Comments:w/ BLANCA [facility] 09-24-2025 NotePatient Education Obstetrics and Gynecology [...] health care provider. General instructions ??? Take iaoe-yxa-jzkgods and prescription medicines only as told by [...] you drink, and whe (more content not included)...[facility]08-20-2025 Hospital Discharge instructions Patient Education 10/10/2024 10:31:42 [...] your health care provider. General instructions Take uvwc-cre-lukbesb and prescription medicines only as told by [...] provider. Document Revised: 10/27/2020 Document Reviewed: 10/27/2020 Cream.HR Patient Education 2023 Semmle. 10/10/2024 10:31:41 Kegel Exercises Kegel Exercises Kegel [...] provider. Document Revised: 06/18/2021 Document Reviewed: 06/18/2021 Cream.HR Patient Education 2023 Semmle. 10/10/2024 10:31:39 Hematuria, Adult Hematuria, Adult Hematuria [...] Follow these instructions at home: Medicines Take yjlt-wyv-ogrzapf and prescription medicines only as told by [...] or the blood stops without treatment. Take uqhm-eeg-cfemyxg and prescription medicines only as told by your health care provider. Drink enough fluid to keep your urine pale yellow. This information is not intended to replace advice given to you by your health care provider. Make sure you discuss any questions you have with your health care provider. Document Revised: 10/08/2020 Document Reviewed: 10/08/2020 Cream.HR Patient Education 2023 Semmle. Follow Up Care 10/04/2024 10:42:48 With:Yogi MEANS, Sharon Patel, URL, URO Address: [address], [place] [address] [phone] When: Unknown Comments:1-2 mos w/ PVR (new med) [facility] Evelyn 08-20-2025 NoteUrology Office/Clinic Note Chief Complaint referral utis, retention HPI Staff Referral from Dr. Palmer for urinary retention. Urine culture @ [facility] 09/21/24 - negative for growth GEORGINA @ [facility] 09/24/24 DR Palmer did some tests and [...] retention, and exacerb (more content not included)... [facility] SpringfieldComment on above:Result Comment: Electronically Signed By: Sharon Calix MD\.br\Date and Time Signed: 10/10/24 11:06 EDT\.br\Electronically Co-Signed By: Holly Canales\.br\Date and Time Co-Signed: 10/10/24 10:32 [id number] NotePatient Education Obstetrics and Gynecology Overactive Bladder, [...] health care provider. General instructions ??? Take qoqm-xtu-josukgn and prescription medicines only as told by [...] you drink, and whe (more content not included)...[facility]10-15-2024 History of Present illness Narrative* Marlena Person MA - 12/06/2023 11:30 AM EDT Images from the original note were not included. Armando Thayer, DO Obstetrics and Gynecology Alexa Delgado 1940 12/06/23 [id number] Yearly Wellness Exam Chief Complaint Patient presents [...] Oil) 1000 MG capsule as directed Orally Ilksdmcaexg-Wwoubckviyb-XON (Triple Flex) 500-400-125 MG tablet 1 tablet with meals Orally twice daily for 30 days HYDROcodone-acetaminophen (Brockton) 5-325 MG tablet 1 tablet as needed [...] Past Medical History: Diagnosis Date Angina pectoris ([facility]) Angina pectoris ([facility]) 11/2019 hx of hospitalization Melchor's palsy 1960 Breast nodule Cataract 2012 COVID-19 10/2021 hx of hospitalization History of medical problems 1982 MMK LSO HTN (hypertension) ([facility]) Hx of completed stroke hx of stroke at ungyhsfmxa9518/ TIA 1984 Kidney disease remission Kidney disease hx of hospitalization Lumbar disc herniation 2007 L4 L5 Miscarriage x3 Pelvic fracture ([facility]) 2018 hx of hospitalization x4 Status post laser cataract surgery of left eye 2014 Stroke ([facility]) 1973 at childbirth TIA (transient [...] costovertebral angle tenderness, no obvious scoliosis/kyphosis. 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 documented in this encounterJefferson Memorial HospitalRywjujksnp40-46-3821 NoteHNO ID: [id number] Author: Carolyn Vanegas MD Service: ? Author [...] Physical Health Percentile 1 (more content not included)...[facility]08-01-2023 Instructions* Patient Instructions* Carolyn Vanegas [...] surgery at this time. documented in this encounterRegency Hospital Company08-01-2023 History of Present illness Narrative* Carolyn Vanegas [...] Level: 4 - Moderate documented in this encounterRegency Hospital Company07-06-2023 NoteHNO ID: [id number] Author: Kassandra Alves PA-C Service: ? Author Type: Physician Editing Intern Type: Progress Notes Filed: 08/26/2022 11:52 [...] yes 2006 [facility] Address: [address] [place] [address] CMT: PT Injections Tylenol Hydrocodone Studies (Reports [...] can be reviewed during the appt FROILAN GarciaOhio Valley Surgical Hospital07-06-2023 History of Present illness Narrative* Kassandra [...] yes 2006 [facility] Address: [address] [place], [place] [id number] CMT: PT Injections Tylenol Hydrocodone Studies (Reports [...] Health Provider or Pain Management Provider at [facility]? No If answer is YES please [...] was completed: [facility] Address: [address] [place] [address] MRI/CT/myelogram viewable in Epic: No If not, please provide [phone] to fax in imaging reports for review. [...] therapy was completed PT Injection [facility] Address: [address] [place] [address] Have you tried any other kinds of [...] the surgery was completed: 2006 [facility] Address: [address] [place] [address] Additional Comments documented in this encounterRegency Hospital Company06-29-2023 NoteHNO ID: [id number] Author: Micheal Bowman Service: ? Author Type: ? Type: Progress Notes Filed: 08/26/2022 11:52 AM Note Text: Patient name: Alexa Delgado Are you being referred by a Center for [facility] Provider or Pain Management Provider at [facility]? No If answer is YES please [...] was completed: [facility] Address: [address] [place] [address] MRI/CT/myelogram viewable in Epic: No If not, please provide [phone] to fax in imaging reports for review. [...] PT Injection [facility] Address: [address] [place] [address] Have you tried any other kinds of [...] completed: 2006 [facility] Address: [address] [place] [address] Additional Comments [place] [address]-26-2023 NotePROCEDURE: XR HIP RT 2 3V W [...] by: HERMES SUAREZ Date: 2022-07-16 11:28[facility]03-24-2023 NoteHNO ID: [id number] Author: Marty Dozier, DO Service: ? Author Type: Physician Type: Progress Notes Filed: 05/15/2022 10:02 PM Note Text: [facility] [place] [facility] [place] [facility] - Medical Spine Initial [...] Ratio: R>L low back Current Treatment: Medications Brockton 5-325 mg BID - helps Diclofenac 75 [...] but still has pain -01/28/22 Noemi Sequeira EDITOR MAP: BL Lumbar erector spinae TPI (0.125% Marcaine, [...] ongoing as of 04/17/21 -03/08/21 Noemi Sequeira EDITOR MAP: Left rhomboid TPI (0.125% Marcaine, 40 mg [...] today. She has an evaluation at the [facility] tomorrow at the [facility]. RECOMMENDATIONS: We will see the patient back in the office after she undergoes evaluation there to discuss her treatment plan thereafter. We will see the patient back in the office in approximately four weeks' time or sooner if needed. PMH: Lumbar scoliosis Depression on Negrita (more content not included)...[facility] 05-14-2022 History of Present illness Narrative* Marty Dozier, - 05/14/2022 3:15 PM EDT Images from the original note were not included. [facility] [place] [facility] - Medical [...] Ratio: R>L low back Current Treatment: Medications Brockton 5-325 mg BID - helps Diclofenac 75 [...] but still has pain -01/28/22 Noemi Sequeira EDITOR MAP: BL Lumbar erector spinae TPI (0.125% Marcaine, [...] ongoing as of 04/17/21 -03/08/21 Noemi Sequeira EDITOR MAP: Left rhomboid TPI (0.125% Marcaine, 40 mg [...] today. She has an evaluation at the [facility] tomorrow at the Spine Center. RECOMMENDATIONS: We [...] 2022 TIME: 3:15 PM documented in this encounterRegency Hospital Company03-23-2023 NoteCONSULTATION CONSULTATION DATE: 05/13/2022 TO: Dr. Palmer [...] mg at h.s., diclofenac 75 mg b.i.d., Brockton 5 mg b.i.d. EXAM: Notable for the [...] today. She has an evaluation at the [facility] tomorrow at the [facility]. RECOMMENDATIONS: We will see the patient back in the office after she undergoes evaluation there to discuss her treatment plan thereafter. We will see the patient back in the office in approximately four weeks' time or sooner if needed.[facility] [id number] NoteCONSULTATION CONSULTATION DATE: 04/06/2022 CHIEF COMPLAINT: Low [...] to kidney dysfunction also. The patient takes Brockton, however, is very controlled and limits it to the point of detriment. Education was done. The patient was instructed to take the Brockton to a b.i.d. to t.i.d. basis. The [...] b.i.d. basis. The patient may increase the Brockton to 5/325 t.i.d. We will schedule the [...] procedure. CC: Galina Palmer M.D.[facility] CenterSaqvvpbn30-55-7429 NoteCONSULTATION CONSULTATION DATE: 03/11/2022 HISTORY OF PRESENT [...] gave improvement for 24 hours. Medications include Brockton 5/325 b.i.d., diclofenac 75 mg b.i.d., citalopram [...] back pain. PLAN: We will refill her Brockton 5/325 b.i.d. We will prescribe her Buderer cream with gabapentin, ketorolac and prilocaine/lidocaine to be placed over her right knee. We will trial Requip 0.25 mg q.h.s. We will see the patient in the clinic in three months' time unless otherwise indicated. Patient agrees with the plan.[facility] [id number] NoteCONSULTATION CONSULTATION DATE: 01/28/2022 HISTORY OF PRESENT [...] daily which decreases her pain. Medications include Brockton 5/325 b.i.d., Flexeril 5 mg b.i.d., diclofenac [...] does consent to. We will refill the Brockton 5/325 b.i.d. We will pre-authorize for a right genicular nerve block under fluoroscopy. Patient will follow up in the clinic thereafter.[facility] [id number] NoteCONSULTATION PROCEDURE DATE: 01/28/2022 PREOPERATIVE DIAGNOSIS: Bilateral [...] followed up in the office.[facility] [id number] Note CONSULTATION CONSULTATION DATE: 12/31/2021 HISTORY OF [...] Current medications include diclofenac 75 mg b.i.d., Brockton 5/325 b.i.d., citalopram, Flexeril and multivitamin regimen. The patient does state that she breaks her Brockton in half and the most she takes [...] would like to move forward.[facility] [id number] NoteCONSULTATION CONSULTATION DATE: 09/30/2021 This is a very qzetgfjq70-hmpa-cgu female accompanied by her returning to the [...] Current medications include diclofenac 50 mg b.i.d., Brockton 5/325 b. i.d. and Tylenol. She does [...] at 25 mg q.h.s. Refill for her Brockton 5/325 b.i.d. will be sent as well. [...] Date:11/14/2024 03:00:00 PM Scheduled Provider:Jacinta Long PA-C Location:[facility] Appointment Type:URO Office Visit [facility] evaluation + Plan note Future Appointments Appointment Date:02/26/2025 03:10:00 PM Scheduled Provider:Jacinta Long PA-C Location:[facility] Appointment Type:URO Office Visit [facility] evaluation note* Diagnosis Chronic bilateral low back pain with right-sided sciatica- Primary Back pain, lumbosacral Lumbago Chronic sacroiliac joint pain Disorders of sacrum Lumbar spondylosis Lumbosacral spondylosis without myelopathy Scoliosis of lumbar spine, unspecified scoliosis type [facility] Diagnosis Spinal stenosis, lumbar region with neurogenic claudication- Primary Spondylolisthesis, lumbar region Other idiopathic scoliosis, lumbar region documented in this encounter [facility]Eval[facility]* Diagnosis Obesity, Class I, BMI 30-34.9- Primary Obesity, unspecified Spinal stenosis, lumbar region with neurogenic claudication documented [facility]* Diagnosis Encounter for gynecological examination without abnormal finding Encounter for Papanicolaou smear of vagina Breast cancer screening by mammogram documented in this encounter [facility] HospitalEvalutrinity health noteNo assessment information availableKettering Health Behavioral Medical Center Work Phone: Hospital course Narrative No data available for this section [facility] progress note No data available for this section [facility] reason for referral (narrative)No reason for referral information availableKettering Health Behavioral Medical Center Work Phone: Summary Purpose Family History No [...] Referral SpecialtyDiagnoses / ProceduresReferred By ContactReferred To [facility] Diagnoses Spinal stenosis, lumbar region with neurogenic claudication Procedures CONSULT TO [facility] ([facility]) OFFICE/OUTPATIENT [facility] 60-74 MINUTES Carolyn Vanegas MD [address] [place] [address] Referral IDStatusReasonStart DateExpiration DateVisits RequestedVisits [id number] Review PCP Requested Referral / Additional Source Comments INFORMATION SOURCE (unrecogn ized section and content) DATE CREATED AUTHOR 09/13/[address] [facility] DATE CREATED AUTHOR AUTHOR'S ORGANIZ ATION 12/13/2020 [facility] DATE CREATED AUTHOR AUTHOR'S ORGANIZ ATION 07/30/2022 [facility] DATE CREATED AUTHOR AUTHOR'S ORGANIZ ATION 09/22/2022 [facility] DATE CREATED AUTHOR AUTHOR'S ORGANIZ ATION 12/08/2023 [facility] DATE CREATED AUTHOR AUTHOR'S ORGANIZ ATION 10/10/2024 [facility] DATE CREATED AUTHOR AUTHOR'S ORGANIZ ATION 10/13/2024 [facility] DATE CREATED AUTHOR AUTHOR'S ORGANIZ ATION 11/16/2024 [facility] Source Comments (unrecognize d section and content) In the event this informatio n is protected by the Federal Confidentiality of Alcohol and Drug Abuse Patient Records regulations: The Federal rules restrict any use of the information to criminally investigate or prosecute any alcohol or drug abuse patient.[facility] CompanyIn the event this information is protected by the Federal Confidentiality of Alcohol and Drug Abuse Patient Records regulations: The Federal rules restrict any use of the information to criminally investigate or prosecute any alcohol or drug abuse patient.[facility] CompanyIn the event this information is protected by the Federal Confidentiality of Alcohol and Drug Abuse Patient Records regulations: The Federal rules restrict any use of the information to criminally investigate or prosecute any alcohol or drug abuse patient.[facility] Reason for Visit (unrecogniz ed section and [...] [facility] Galina Palmer MD [address] [place] [address] PCP - [facility] Medicine05/14/22 Colette De Leon Jr., DO [address] [place] [address] ReferringOrthopedics05/03/22 Lakshmipathy, Narendranath [address] [phone] Pain Management05/14/22 Colette De Leon Jr., DO [address] [place] [address] Orthopedic05/14/22Team MemberRelationshipSpecialtyStart [facility] Galina Palmer MD [address] [place] [address] PCP - [facility] Medicine05/14/22 Colette De Leon Jr., DO [address] [facility] [address] [place] [address] ReferringOrthopedics05/03/22 Lakshmipathy, Narendranath [address] [phone] Pain Management05/14/22 Colette De Leon Jr., DO [address] [place] [address] Orthopedic05/14/22 Galina Palmer MD [address] [place] [address] ReferringFamily Medicine08/11/22Team MemberRelationshipSpecialtyStart End Galina Palmer MD [address] [place] [address] PCP - GeneralFamily Medicine05/14/22 Colette De Leon Jr., DO [address] [facility] [address] [place] [address] ReferringOrthopedics05/03/22 ShermiPorsha santillan [address] [address] Pain Management05/14/22 Colette De Leon Jr., DO [address] [facility] [address] [place] [address] Orthopedic05/14/22 Galina Palmer MD [address] [place] [address] ReferringFami Medicine08/11/22Team MemberRelationshipSpecialtyStart DateEnd Date Galina Palmer MD [address] [place] [address] PCP - GeneralFamily Medicine08/02/22 Team Status: Inactive [...] BE BASED ON THE PRIMARY CLINICAL RECORDS. [facility]. provides no warranty or guarantee of the accuracy or completeness of information in this document.
--- OUTSIDE RECORDS SUMMARY | 2025-02-20 14:52 | XMS_ITS | Clinical Summary ---
Author Organization [facility] Address [address] [facility] [place] [place] [address] Phone Care Team Providers Care Atm Servicer Name Role Phone Unavailable Primary Care Provider Unavailabl e Social History Tobacco UseTypesPacks/DayYears UsedDateSmoking Tobacco: Never Assessed CommentsUnknownSex and Gender InformationValueDate RecordedSex Assigned at Not on fileLegal TfeAoabfe52/25/2022 6:29 PM ESTGender IdentityNot on fileSexual OrientationNot on file Plan of Treatment Not on file
--- OUTSIDE RECORDS SUMMARY | 2025-02-20 14:52 | XMS_ITS | Clinical Summary ---
Author Organization [facility] Address [address] [place] [address] Care Team Providers Care Sourcing Consultant Name Role Phone Luis Rogers MD Primary Care Provider [phone] Allergies Active AllergyReactionsCriticalityNoted RhenGptcjmcsRappwqo28/12/2023 PropoxypheneGI intolerance,Rfhtesnf87/12/2023seudoephedrine Hcl08/02/2022 NOTES SENSITIVITY DlvbzqunbtdOfbsxuw00/15/8318TpcnlrdahaMezwgivmv42/12/2023enicillinsUnknown 08/02/2022 CHILDHOOD ALLERGY QuinineGI intolerance,Headache,Dvvfryobm07/12/2023 QUINAMM Medications MedicationSigDispense QuantityRefillsLast FilledStart DateEnd DateStatus Calcium Carbonate-Vitamin D (CALTRATE 600+D PO) Take by mouth in the morning and in the evening.Active citalopram (CeleXA) 10 MG tablet 1 (one) time each day at the same timeActive cyclobenzaprine (Flexeril) 5 MG tablet Take 5 mg by mouth every 12 (twelve) hours if neededActive diclofenac (Voltaren) 75 MG EC tablet every 12 (twelve) hoursActive Flaxseed, Linseed, (Flax Seed Oil) 1000 MG capsule Active Bfdhncfpppb-Swtjgwqffdy-IEW (Triple Flex) 500-400-125 MG tablet Active HYDROcodone-acetaminophen ([place]) 5-325 MG tablet 04/29/2022ctive isosorbide mononitrate ER (Imdur) 30 MG 24 hr tablet Take 30 mg by mouth in the morning.03/21/2022ctive levothyroxine (Synthroid, Levoxyl) 75 MCG tablet 1 (one) time each day at the same time03/18/2022ctive liothyronine (Cytomel) 25 MCG tablet 1 (one) time each day at the same timeActive melatonin 3 MG tablet 1 (one) time each day at the same timeActive metoprolol succinate XL (Toprol-XL) 50 MG 24 hr tablet Active nitroglycerin (Nitrostat) 0.4 MG SL tablet Active Zinc-Magnesium Aspart-Vit B6 (Zinc Magnesium Aspartate) 150-3.83-10 MG capsule 1 (one) time each day at the same timeActive acetaminophen (Tylenol) 500 MG tablet Take by mouthActive aspirin 81 MG EC tablet Take 81 mg by mouth DailyActive Multiple Vitamin (multivitamin) tablet Take 1 tablet by mouth DailyActive ferrous sulfate 325 (65 Fe) MG tablet Take 1 tablet by mouth in the morning and 1 tablet before bedtime.09/16/2023 Active pantoprazole (ProtoNix) 40 MG EC tablet Take 40 mg by mouth Daily10/13/2023ctive fexofenadine (Benita) 180 MG tablet Take 180 mg by mouth DailyActive MAGNESIUM PO Take by mouth + cheleated zincActive Eoxndfr-Qbygooq-Edfwui Edwar (SALONPAS TD) Place on the skinActive Trolamine Salicylate (BLUE-EMU MAXIMUM PAIN RELIEF EX) Apply topicallyActive oxybutynin (Ditropan) 5 MG tablet Take 5 mg by mouth DailyActive Active Problems ProblemNoted DateDiagnosed DateFibrocystic breast scodopf6112/06/2023rimary osteoarthritis of right knee12/06/2023Spinal stenosis, lumbar region with neurogenic /01/2023Scoliosis of lumbar spine04/11/2022Essential mfafmfmoxyun26/23/0220Xyuyqipppvaafc43/23/2013 Encounters DateTypeDepartmentCare ZwoaYzejpkshbpy75/09/2025 1:25 PM ESTOffice Visit [facility] [address] [place] [address] Shilpa Read MD Seborrheic keratosis (Primary Dx); Actinic keratosis; Venous bansal of lip; Soyckqsbqw24/09/2025amboo flowsheet [facility] [address] [place] [address] Shilpa Read MD 01/29/2025Travelfrom Last 3 Months Immunizations ImmunizationAdministration DatesNext DueInfluenza, Rkkaznbtgtq38/08/2021 Influenza, injectable, MDCK, preservative free, mfxhjlezcsac26/12/2022Influenza, trivalent, ukdftcqdag16/08/2020Moderna Bivalent Booster Gvsrggkwuud34/19/2022 Pneumococcal Conjugate PCV Zoster, live05/27/2017 Family History Medical HistoryRelationNameCommentsHeart diseaseFatherHeart diseaseMother [...] on one occasion?Never12/06/2023HQ-2 AnswerDate RecordedPatient Health Questionnaire-2 Kimmi338regnant CommentsNoSex and Gender InformationValueDate RecordedSex Assigned at BirthNot on fileLegal MsmOqehat96/15/2023 6:37 PM EDTGender IdentityNot on fileSexual OrientationNot on file Last Filed Vital Signs Vital SignReadingTime TakenCommentsBlood Fomohxgg246/8212/06/2023 11:32 AM EDT Pulse--Temperature--Respiratory Rate--Oxygen Saturation--Inhaled Oxygen Concentration--Obymnr92.4 kg (164 lb)12/06/2023 11:32 AM FFSFiafpz005.3 cm (4' 10 )12/06/2023 11:32 AM EDTBody Mass Index34.281 11:32 AM EDT Plan of Treatment DateTypeDepartmentCare Team (Latest Contact Info)Yhiptmfphti71/20/2026 11:30 AM EDTOffice Visit [facility] [address] [place] [address] Armando Thayer DO [address] [place] [address] 01/29/2026 1:15 PM ESTOffice Visit [facility] [address] [place] [address] Shilpa Read MD [address] [place] [address] Health MaintenanceDue DateLast DoneCommentsPneumococcal Vaccine: 65+ Years (2 of 2 - PCV20 or PCV21)Influenza QkyglhuVbaqwwahj43/11/2025, 12/05/2023, 10/25/2022, Additional history exists Procedures Procedure NamePriorityDate/TimeAssociated DiagnosisCommentsCRYOTHERAPY SKIN IZHBVDMawovzt66/09/2025 1:28 PM EST Actinic keratosis from Last 3 Months Results * Cryotherapy, skin lesion (01/29/2025 1:28 PM EST) Narrative Authorizing ProviderResult TypeResult StatusEmily A Jacek MDDERM PROCEDURE ORDERABLESFinal Result from Last 3 Months Insurance * Guarantor: Alexa Delgado TypeRelation to PatientDate of BirthPhone Billing AddressPersonal/BdubiiPefd09[birth year][address] [address] [place] [address] Care Teams Team MemberRelationshipSpecialtyStart DateEnd Date Luis Rogers MD [address] [place] [address] PCP - GeneralFamily Medicine08/02/22
--- OUTSIDE RECORDS SUMMARY | 2025-02-20 14:52 | XMS_ITS | Clinical Summary ---
Author Organization [facility] Address [address] [place], [place] [id number] Care Team Providers Care Sales And Service Specialist Name Role Phone Haley Matos DO, George Cajetan Unavailable Luis Rogers MD Primary Care Provider [phone] LakkailamipathArmen manciaranath Unavailable [phone] Haley Matos DO, George Cajetan Unavailable Luis Rogers MD Unavailable [phone] Allergies Active AllergyReactionsCriticalityNoted VeerIcnlbnvnIqbeceaBsimaejVldz31/24/2013 Decongest Multi-ActionOther: See Iqkxtgfc27/24/2023PenicillinsUnknownHigh 09/13/20125056BylavbwhitMoijdgqrswy00/24/2023 Dizziness PropoxypheneRash,DfzdsveDdmz65/24/2023 Headache QuinammGI Upset05/14/2022 Medications MedicationSigDispense QuantityRefillsLast FilledStart DateEnd DateStatus citalopram hydrobromide (CELEXA) 10 mg tablet Take 10 mg by mouth once daily. Treat Akhzlyrbui36/09/2023ctive diclofenac, EC, (VOLTAREN) 75 mg EC tablet Take 75 mg by mouth twice daily. For Arthritis pain03/24/2022ctive isosorbide mononitrate ER (IMDUR) 30 mg 24 hr tablet Take 30 mg by mouth once daily. 1 tablet daily in the AM on an empty stomach Treat for Estwtu2003/21/2022ctive levothyroxine (SYNTHROID) 75 mcg tablet Take 75 [...] DateDiagnosed DateSpinal stenosis, lumbar region with neurogenic gpyaeiphhtvx52/01/2023Obesity, Class I, BMI 30-34.9009/21/2022Scoliosis, shayxpsufru66/19/2023 Immunizations ImmunizationAdministration DatesNext Dueinfluenza (aIIV3) vaccine, age 65+ yr, trivalent, PF (FLUAD)11/29/2019influenza (ccIIV4) vaccine, age 6+ mo, quadrivalent, PF (FLUCELVAX)12/02/2021influenza vaccine, unspecified formulation 11/28/2020neumococcal conjugate (PCV13) vaccine, 13 valent (PREVNAR 13) 11/12/2016zoster (ZVL) vaccine, live (ZOSTAVAX)05/27/2017 Social History Tobacco UseTypesPacks/DayYears UsedDateSmoking Tobacco: NeverSmokeless Tobacco: Never Tobacco Cessation:Counseling Given: Not Answered Alcohol UseStandard Drinks/WeekCommentsNever0 (1 standard drink = 0.6 oz pure alcohol)PHQ-2AnswerDate RecordedPHQ-2 eqwyj246rea Deprivation Index AnswerDate RecordedNational Score (1-100), lower number is lower risk63 09/21/2022State Score (1-10), lower number is lower qswm273ata from: https://www.neighborhoodatlas.medicine.[facility].edu/. Last address used for [address] [place] [address]/21/2022CommentsUnknownSex and Gender InformationValueDate RecordedSex Assigned at BirthNot on fileLegal SexFemale 01/01/2019 11:59 AM ESTGender IdentityNot on fileSexual OrientationNot on file Last Filed Vital Signs Vital SignReadingTime TakenCommentsBlood Tsgnzkeo043/6008 12:51 PM EDT Gcslh533209/21/2022 12:51 PM EDTTemperature--Respiratory Rate--Oxygen Saturation 99%05/14/2022 2:22 PM EDTInhaled Oxygen Concentration--Miqpsq17.4 kg (168 lb 6.4 oz)05/14/2022 2:22 PM UQZFicggs670.4 cm (5')05/14/2022 2:22 PM EDTBody Mass Index32.8905/14/2022 2:22 PM EDT Plan of Treatment Health MaintenanceDue DateLast DoneCommentsAnxiety Xpukvqalx44/10/1958Depression Efawnlwke77/10/1958DTaP,Tdap,Td Vaccine (1 - Tdap)04/30/1958Diabetes Screening 04/30/1984Medicare Annual Wellness Visit04/21/2004Bone Density Screening 04/30/2004RSV Vaccine (1 - 1-dose 75+ series)04/30/2014Shingrix Vaccine (2 of 3) Pneumococcal Vaccine: 50+ (2 of 2 - PCV20 or PCV21) Advance Directive Jqmxgdiybb44/01/2025Covid-19 Vaccine ( season)/, 06/04/2021, 12/13/2020, Additional history existsInfluenza Vaccine (#1), 11/28/2020, 11/29/2019 Insurance MemberSubscriberPlan / Payer (Effective 2004-Present)Name:Alexa Delgado Member ID:[id number] Relation to Subscriber:SelfName:Alexa Delgado Subscriber ID:[id number] Payer ID:Not on file Group ID:Not on file Type:Medicare Address: [place] [id number] Care Teams Team MemberRelationshipSpecialtyStart Date Luis Rogers MD [address] [place] [address] PCP - GeneralFamily Medicine05/14/22 Arsh De Leon Jr., DO [address] [place] [address] [address] [place] [address] ReferringOrthopedics05/03/22 Porsha Garcia [address] [id number] Pain Management05/14/22 Arsh De Leon Jr., DO [address] [facility] [address] [place] [address] Orthopedic05/14/22 Luis Rogers MD [address] [place] [address] ReferringFamily Medicine08/11/22
[2025-02-20 15:29] LABS: Glucose Urine UA NEGATIVE (NEGATIVE)
[2025-02-20 15:36] LABS: Hematocrit 34.3 % (36.0-48.0); Hemoglobin 11.3 g/dL (12.0-16.0); Mean Corpuscular HGB Conc 32.9 g/dL (29.9-35.2); Mean Corpuscular Hemoglobin 31.6 pg (26.7-34.0); Mean Corpuscular Volume 95.8 fL (81.0-99.0); Platelet Count 226 10^3/uL (150-450); Red Blood Count 3.58 10^6/uL (4.20-5.40); White Blood Count 3.9 10^3/uL (4.0-11.0)
[2025-02-20 15:44] LABS: Crystals Seen? None Seen #/HPF (None Seen)
[2025-02-20 15:45] LABS: Cast Seen? NONE SEEN #/LPF (NONE SEEN)
[2025-02-20 15:52] LABS: Basophils Abs Manual 0.00 10^3/uL (0.00-0.10); Basophils Percent Manual 0.0 % (0.2-2.0); Eosinophils Absolute Manual 0.07 10^3/uL (0.00-0.70); Eosinophils Percent Manual 2.0 % (0.9-7.0); Lymphocytes Absolute Manual 0.35 10^3/uL (1.20-3.80); Lymphocytes Percent Manual 9.0 % (20.5-60.0); Monocytes Absolute Manual 0.50 10^3/uL (0.30-0.80); Monocytes Percent Manual 13.0 % (1.7-12.0); Segmented Neut Absolute Manual 2.96 10^3/uL (1.4-6.5); Segmented Neutrophils % Manual 76.0 (43.0-75.0)
[2025-02-20 16:29] LABS: Iron 48.0 ug/dL (50.0-170.0)
[2025-02-20 16:41] LABS: Alanine Aminotransferase 27 U/L (14-59); Albumin Globulin Ratio 1.0; Albumin Level 3.5 g/dL (3.4-5.0); Alkaline Phosphatase 78 U/L (46-116); Anion Gap 8.8; Aspartate Amino Transferase 20 U/L (15-37); Blood Urea Nitrogen 25.0 mg/dL (7.0-18.0); Calcium 9.7 mg/dL (8.5-10.1); Carbon Dioxide 33.9 mmol/L (21.0-32.0); Chloride 101 mmol/L (98-107); Estimated GFR (African America 57 (>=60 mL/min/1.73m^2); Estimated GFR (Non-African Ame 47 (>=60 mL/min/1.73m^2); Free T3 1.99 pg/mL (2.18-3.98); Globulin 3.5 g/dL; Glucose 96 mg/dL (74-106); Potassium 3.7 mmol/L (3.5-5.1); Sodium 140 mmol/L (136-145); Thyroid Stimulating Hormone 0.112 uIU/mL (0.358-3.740); Total Protein 7.0 g/dL (6.4-8.2)
== END 2025-02-20 14:47 | disposition home or self-care (01) ==
LOC: LAB 14:49
PROVIDERS: PCP Family Medicine; Visit Provider Family Medicine
DX: R41.0 Disorientation, unspecified (principal); E03.9 Hypothyroidism, unspecified; I10 Essential (primary) hypertension; E55.9 Vitamin D deficiency, unspecified; D64.9 Anemia, unspecified
CPT/HCPCS: 36415; 80053; 81001; 82306; 83540; 84436; 84443; 84481; 85007; 85027; 87086